=== PATIENT | female | born 1965 | race Caucasian/White ===

== ENCOUNTER 2016-03-28 17:35 | Inpatient (IN) | payer OTHER ==
[2016-03-28 18:10] VITALS: BMI 22.3
--- NOTE | 2016-03-28 18:22 | PDOC ---
History of Present Illness - General History Source: Patient, Care Provider, Parent(s), Other Exam Limitations: No Limitations, Clinical Condition - History of Present Illness Initial Comments: 03/28/16 19:09 The patient is a 51 year old female, with a significant past medical history of a MS (35 years), decubitus ulcers, and on a ventilator who presents to the emergency department complaining of sores on her legs and in her mouth for approximately 5 days. As per mother, the symptoms initially began as red blots and began to develop blisters throughout the day. After growing concerned, the patient was accompanied to her PCP Dr. Lopez 4 days ago for further evaluation. Dr. Lopez ruled out shingles, and diagnosed her with a viral skin infection, for which he prescribed famciclovir and cefuroxime. The patient is compliant with her medication and has experienced no relief. The patient reports her sores have since extended to her sides. The patient reports some of her blisters popped yesterday, with clear fluid discharge. The patient states she does not experience much pain in areas of blisters below her waist, due to diffuse dull sensation in her body secondary to MS. The patient denies any fever , chills, diaphoresis, cough, headache, or dizziness. She reports she is nauseous, but denies any vomiting, diarrhea, or constipation. Allergies: chloral hydrate, azathioprine, azathioprine sodium, adhesive tape, adhesive Past Surgical History: None reported. Social History: Non-smoker. Denies alcohol or drug use. PCP: Dr. Lopez ([phone]) 03/28/16 20:54 <Go Rogers - Last Filed: 03/28/16 20:54> <Ivette Vasquez - Last Filed: 03/28/16 21:08> - General Chief Complaint: Rash Stated Complaint: RASH Time Seen by Provider: 03/28/16 17:47 Past History <Go Rogers - Last Filed: 03/28/16 20:54> - Past Medical History Anemia: No Asthma: No Cancer: No CVA: No COPD: No CHF: No Dementia: (M.S,TRIG.NEUROLAGIA) Diabetes: No GI Disorders: Yes Disorders: Yes (baclofen implant) HTN: Yes Hypercholesterolemia: No Liver Disease: No Suicide Attempt (Hx): Yes Seizures: Yes Thyroid Disease: No - Surgical History Abdominal Surgery: No Appendectomy: No Cardiac Surgery: No Cholecystectomy: No GI Surgery: (BACLOFEN IMPLANT) Lung Surgery: Yes (TRACH) Neurologic Surgery: No Orthopedic Surgery: No - Immunization History Immunization Up to Date: Yes - Psycho/Social/Smoking Cessation Hx Anxiety: No Suicidal Ideation: No Smoking Status: No Smoking History: Never smoked Have you smoked in the past 12 months: No Number of Cigarettes Smoked Daily: 0 Cigars Per Day: 0 Hx Alcohol Use: No Drug/Substance Use Hx: No Substance Use Type: None Hx Substance Use Treatment: No <Ivette Vasquez - Last Filed: 03/28/16 21:08> - Past Medical History Allergies/Adverse Reactions: Allergies Allergy/AdvReac Type Severity Reaction Status Date / Time chloral hydrate Allergy Intermediate Rash Verified 03/28/16 18:06 [Chloral Hydrate] azathioprine [From Imuran] Allergy Rash Verified 03/28/16 18:06 azathioprine sodium Allergy Rash Verified 03/28/16 18:06 [From Imuran] adhesive tape AdvReac Severe sensitivity Verified 03/28/16 18:06 to glue adhesive AdvReac Unknown Verified 03/28/16 18:06 Home Medications: Ambulatory Orders Carbamazepine [Tegretol -] 100 mg PO TID tab.chew 08/27/14 Albuterol 0.083% Nebulizer Rocio [Ventolin 0.083% Nebulizer Soln -] 1 neb NEB Q4H PRN #0 amp 10/26/14 Clonazepam [Klonopin] 0.5 mg PO DAILY 05/08/15 Silver Sulfadiazine [Silvadene] 50 gm TP DAILY #1 cream..g. NS 11/28/15 Hydralazine HCl [Apresoline -] 25 mg PO TID tablet 12/08/15 Amlodipine Besylate [Norvasc -] 10 mg PO HS 02/06/16 Baclofen 5 mg PO DAILY 02/06/16 Mirtazapine 7.5 mg PO DAILY 02/06/16 Pantoprazole Sodium [Protonix] 40 mg PO DAILY 02/06/16 Potassium Chloride 20 meq PO DAILY 02/06/16 Sertraline HCl [Zoloft -] 25 mg PO TID 02/06/16 Levothyroxine [Synthroid -] 88 mcg PO DAILY@0700 #30 tablet 02/14/16 Cefuroxime Axetil [Ceftin -] 500 mg PO Q12H 03/28/16 Famciclovir [Famvir (Nf) -] 500 mg PO BID 03/28/16 Review of Systems - Review of Systems Able to Perform ROS?: Yes Comments:: 03/28/16 19:09 GENERAL/CONSTITUTIONAL: +General weakness. No fever or chills. HEAD, EYES, EARS, NOSE AND THROAT: +Blisters around mouth and tongue. No change in vision. No ear pain or discharge. No sore throat. CARDIOVASCULAR: No chest pain or shortness of breath. RESPIRATORY: No cough, wheezing, or hemoptysis. GASTROINTESTINAL: +Nausea. No vomiting, diarrhea or constipation. GENITOURINARY: No dysuria, frequency, or change in urination. MUSCULOSKELETAL: +Multiple sclerosis. No joint or muscle swelling or pain. No neck or back pain. SKIN: +Medial right thigh, lateral left thigh, left and right flank skin rash and bullae. +Decubitus ulcers X3 in her left upper thigh sacral region. NEUROLOGIC: No headache, vertigo, loss of consciousness, or change in strength/ sensation. ENDOCRINE: No increased thirst. No abnormal weight change. HEMATOLOGIC/LYMPHATIC: No anemia, easy bleeding, or history of blood clots. ALLERGIC/IMMUNOLOGIC: No hives or skin allergy. <Go Rogers - Last Filed: 03/28/16 20:54> *Physical Exam - Vital Signs Last Vital Signs Temp Pulse Resp BP Pulse Ox 96.6 F L 84 18 135/63 93 L 03/28/16 18:06 03/28/16 18:06 03/28/16 18:06 03/28/16 18:06 03/28/16 18:06 <Go Rogers - Last Filed: 03/28/16 20:54> - Vital Signs Last Vital Signs Temp Pulse Resp BP Pulse Ox 96.6 F L 84 18 135/63 93 L 03/28/16 18:06 03/28/16 18:06 03/28/16 18:06 03/28/16 18:06 03/28/16 18:06 - Physical Exam Comments: GENERAL: Awake, alert, and fully oriented, in no acute distress HEAD: No signs of trauma EYES: PERRLA, EOMI, sclera anicteric, conjunctiva clear ENT: Auricles normal inspection, hearing grossly normal, nares patent, oropharynx clear without exudates. Moist mucosa NECK: Normal ROM, supple, no lymphadenopathy, JVD, or masses. +Trach. LUNGS: Breath sounds equal, clear to auscultation bilaterally. No wheezes, and no crackles HEART: Regular rate and rhythm, normal S1 and S2, no murmurs, rubs or gallops ABDOMEN: Soft, nontender, normoactive bowel sounds. No guarding, no rebound. No masses EXTREMITIES: +Diffuse atrophy. No clubbing or cyanosis. No cords, erythema, or tenderness NEUROLOGICAL: +Slurred speech. Able to move extremities with assistance. Dec sensation diffusely. SKIN: Warm, Dry, normal turgor. +Scattered raised erythematous patches with multiple overlying bullous lesions, to groin, L thigh, L mid-torso and back. <Ivette Vasquez - Last Filed: 03/28/16 21:08> ED Treatment Course - LABORATORY CBC & Chemistry Diagram: 03/28/16 19:00 03/28/16 19:40 <Go Rogers - Last Filed: 03/28/16 20:54> - LABORATORY CBC & Chemistry Diagram: 03/28/16 19:00 03/28/16 19:40 <Ivette Vasquez - Last Filed: 03/28/16 21:08> Medical Decision Making - Medical Decision Making 03/28/16 20:43 First call, placed to Dr. Lopez at 20:42, awaiting call back. <Go Rogers - Last Filed: 03/28/16 20:54> - Medical Decision Making 03/28/16 21:07 Patient with rash, possible erythema multiforme, however, the mucosal involvement is concerning. Patient will require further evaluation for the rash , as well as repeat exams to make sure it is not worsening, given the mucosal involvement. As for the urine, I have not treated, as patient has chronic perera , may be colonized. UCx pending. <Ivette Vasquez - Last Filed: 03/28/16 21:08> *DC/Admit/Observation/Transfer - Attestations Scribe Attestion: 03/28/16 19:10 Documentation prepared by Go Rogers, acting as medical registrar for Ivette Vasquez MD. <Go Rogers - Last Filed: 03/28/16 20:54> - Discharge Dispostion Admit: Yes <Ivette Vasquez - Last Filed: 03/28/16 21:08> Diagnosis at time of Disposition: Rash - Discharge Dispostion Condition at time of disposition: Stable
[2016-03-28 19:14] LABS: BASOPHIL 1.3 % (0-2.0); MCH 31.6 pg (25.7-33.7); MCHC 34.1 g/dl (32.0-36.0); MEAN CELL VOLUME 92.9 fl (80-96); MEAN PLT VOLUME 9.2 fl (7.5-11.1); NEUTROPHILS 83.9 % (42.8-82.8); PLATELET COUNT 377 K/MM3 (134-434); RDW 15.5 % (11.6-15.6); WHITE BLOOD COUNT 10.6 K/mm3 (4.0-10.0)
[2016-03-28 20:28] LABS: ERYTHROCYTE SEDIMENTATION RATE 115 mm/hr (0-30)
[2016-03-28 20:29] LABS: ALBUMIN 2.5 g/dl (3.4-5.0); ANION GAP 8 (8-16); BILIRUBIN,TOTAL 0.2 mg/dL (0.2-1.0); CALCIUM 9.1 mg/dL (8.5-10.1); CO2 29 mmol/L (21-32); CREATININE 0.7 mg/dL (0.55-1.02); GLUCOSE,RANDOM 89 mg/dL (74-106); SGOT/AST 20 U/L (15-37); SGPT/ALT 30 U/L (12-78); TOT PROT 7.1 g/dl (6.4-8.2)
[2016-03-28 20:30] LABS: ALK PHOS 212 U/L (45-117)
[2016-03-28 20:35] LABS: URINE APPEARANCE CLOUDY; URINE BILIRUBIN NEGATIVE (NEGATIVE); URINE BLOOD NEGATIVE (NEGATIVE); URINE COLOR YELLOW; URINE GLUCOSE (UA) 2+ (NEGATIVE); URINE KETONE NEGATIVE (NEGATIVE); URINE NITRITE POSITIVE (NEGATIVE); URINE UROBILINOGEN NEGATIVE E.U./dl (0.2-1.0)
[2016-03-28 20:36] LABS: URINE LEUK ESTERASE 3+ (NEGATIVE); URINE PROTEIN 1+ (NEGATIVE)
[2016-03-28 20:38] LABS: URINE BACTERIA MANY /hpf (NONE SEEN); URINE HYALINE CAST 49 /lpf; URINE MUCUS MANY; URINE RBC 9 /hpf (0-3); URINE WBC 162 /hpf (3-5)
[2016-03-28] MEDS ORDERED: diphenhydrAMINE HCL 25 MG CAPSULE (FP) PO PRN (23:02)
[2016-03-28] MEDS ORDERED: clonazePAM 0.5 MG TABLET ONE (23:18)
[2016-03-28] MEDS ORDERED: BACLOFEN 10 MG TABLET (FP) ONE (23:19)
[2016-03-28] MEDS: clonazePAM 0.5 MG TABLET PO SCH (23:41)
[2016-03-28] MEDS: BACLOFEN 10 MG TABLET (FP) PO SCH (23:41)
[2016-03-29] MEDS ORDERED: hydrALAZINE HCL 25 MG TABLET (FP) ONE (05:15)
[2016-03-29] MEDS: LEVOTHYROXINE NA 88 MCG TABLET (FP) PO SCH (06:20)
[2016-03-29] MEDS: hydrALAZINE HCL 25 MG TABLET (FP) PO SCH ×3 (06:20→21:45)
[2016-03-29 06:38] LABS: MCH 31.6 pg (25.7-33.7); MCHC 33.6 g/dl (32.0-36.0); MEAN CELL VOLUME 93.8 fl (80-96); MEAN PLT VOLUME 8.2 fl (7.5-11.1); PLATELET COUNT 273 K/MM3 (134-434); WHITE BLOOD COUNT 13.3 K/mm3 (4.0-10.0)
[2016-03-29 07:12] LABS: ALBUMIN 2.4 g/dl (3.4-5.0); ANION GAP 8 (8-16); CALCIUM 8.9 mg/dL (8.5-10.1); CO2 31 mmol/L (21-32); GLUCOSE,RANDOM 92 mg/dL (74-106)
[2016-03-29 07:18] LABS: ALK PHOS 208 U/L (45-117); BILIRUBIN,TOTAL 0.2 mg/dL (0.2-1.0); CREATININE 0.7 mg/dL (0.55-1.02); SGOT/AST 21 U/L (15-37); SGPT/ALT 26 U/L (12-78); TOT PROT 6.8 g/dl (6.4-8.2)
[2016-03-29] MEDS: ALBUTEROL SO4 2.5/IPRATROPIUM 0.5 INH SOL 3 ML VIAL.NEB. NEB PRN (07:34)
--- NOTE | 2016-03-29 08:19 | PN ---
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 (short form) - Note 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: ID Presents with 6 days history of uncomfortable rash on the legs vaginal area blistering component to it. No fevers eye complaints but says her tongue is sore. no new medications She sees Dr Steven for scalp condition treated wit shampoo topically. No new meds Selected Entries 03/28/16 03/29/16 03/29/16 18:06 05:51 07:39 Temperature 96.6 F L Pulse Rate 68 Pulse Rate [ 84 Left] Respiratory 16 Rate Blood Pressure 151/71 [Right Arm] Areas or erythema with blisters vaginal area right thigh anteriorly and lat. Discreet scalp lesions but unable to see well Decubitus ulcer Tongue sores Problem List - Problems (1) Erythema multiforme Code(s): L51.9 - ERYTHEMA MULTIFORME, UNSPECIFIED (2) Disseminated herpes zoster Code(s): B02.7 - DISSEMINATED ZOSTER
[2016-03-29] MEDS ORDERED: FLUCONAZOLE 100 MG TABLET (UD) PO ONE (08:21)
[2016-03-29] MEDS ORDERED: carBAMazepine 200 MG TABLET ONE (08:30)
[2016-03-29] MEDS: carBAMazepine 100 MG TAB.CHEW PO SCH ×3 (08:31→18:34)
[2016-03-29 09:08] LABS: ERYTHROCYTE SEDIMENTATION RATE 130 mm/hr (0-30)
[2016-03-29] MEDS ORDERED: POTASSIUM CHLORIDE 10 MEQ in SODIUM CHLORIDE 1,000 ML IVPB SCH (09:45)
[2016-03-29] MEDS ORDERED: SILVER SULFADIAZINE 1% TOP CREAM 50 GM JAR TP SCH (10:00)
[2016-03-29] MEDS ORDERED: clonazePAM 0.5 MG TABLET ONE (10:16)
[2016-03-29] MEDS: methylPREDNISolone NA SUCC 40 MG/1 ML VIAL IVPB SCH ×2 (10:25→18:34)
--- NOTE | 2016-03-29 10:25 | CONS ---
DATE OF CONSULTATION: DATE OF DICTATION: March 29, 2016 INFECTIOUS DISEASE CONSULTATION HISTORY OF PRESENT ILLNESS: This is one of multiple admissions for this 51-year-old female with long-standing multiple sclerosis for 35 years, with decubitus ulcers and intermittent ventilator dependency, who comes to the emergency room complaining of an uncomfortable rash on her legs as well as her tongue for about 5 days. She is bedbound and well-cared for by her mother and an aide. For the last 5 to 6 days she noted development of what were described as blisters on her legs. She saw her primary medical doctor and was diagnosed with shingles, and apparently given famciclovir and cefuroxime. This offered little relief, and she developed sores on her tongue as well. She denied any eye involvement, joint pains or history of new medications. She has been seeing Dr. Brooke Steven for a scalp condition, which has been treated with a topical shampoo but no other medications or new diagnoses. She was recently in the hospital and seen by Dr. Carl, but no antibiotics have been given. PAST MEDICAL HISTORY: As noted above. MEDICATIONS: Current medications include Klonopin, Apresoline, Norvasc, Protonix, sertraline, levothyroxine, cefuroxime (started several days ago), Famvir (started several days ago). ALLERGIES: CHLORAL HYDRATE, AZATHIOPRINE (with rash). SOCIAL HISTORY: Never smoked. No history of substance abuse. Not . No travel. FAMILY HISTORY: Reviewed and noncontributory. REVIEW OF SYSTEMS: Respiratory: No cough, shortness of breath, chest pain. Cardiac: No palpitations, syncope or history of murmur. Gastrointestinal: No abdominal pain, vomiting, diarrhea, blood per rectum, hematemesis. Genitourinary: Incontinent of urine. PHYSICAL EXAMINATION: General: She was an alert female in no acute distress. Vital Signs: Temperature 96.6, pulse 84, blood pressure 135/63, respirations 18. HEENT: Mucosal candidiasis noted, with ulcerations of the tongue. Neck: Neck with a tracheostomy. Lungs: Bilateral rhonchi. Heart: S1, S2. Regular rhythm, without murmur. Abdomen: Soft, distended. Positive bowel sounds. No tenderness, no organomegaly. Extremities: No clubbing, cyanosis or edema. Skin: A large erythematous rash in the right anterior inner thigh with a blistering component. Several discrete similar smaller areas noted on the lateral aspect of the thigh and apparently in the vaginal area, according to her aide. DIAGNOSTIC STUDIES: White count 13.3, hemoglobin 9.9, platelets 273. ESR 115. BUN 12, creatinine 0.7, alkaline phosphatase 208 (which has previously been elevated). Urinalysis with 3+ leukocyte esterase, 9 RBCs and 162 WBCs, with many bacteria noted. Two sets of blood cultures and urine culture drawn. ASSESSMENT: A 51-year-old female with long-standing multiple sclerosis, presents with an uncomfortable "blistering rash" on her thigh and vaginal area, as well as mouth sores, all of which could be consistent with erythema multiforme. The differential diagnosis, however, would also include disseminated shingles as well as a blistering disease, such as pemphigus. She also has incidental oral candidiasis. PLAN: Dr. Brooke Steven should see her in consult from Dermatology. As a precaution, I would put her on contact isolation and treat her with IV Zovirax, with adequate hydration 700 mg q.8 hours, add steroids, Solu-Medrol 40 q.8, and oral Diflucan 100 mg daily. ANGELA LUBIN M.D. DIDI/[id number]
[2016-03-29] MEDS: amLODIPine BESYLATE 10 MG TABLET (FP) PO SCH (10:58)
[2016-03-29] MEDS: clonazePAM 0.5 MG TABLET PO SCH (10:58)
[2016-03-29] MEDS: PANTOPRAZOLE 40 MG TABLET (FP) PO SCH (10:58)
[2016-03-29] MEDS: BACLOFEN 10 MG TABLET (FP) PO SCH ×3 (10:58→21:47)
[2016-03-29] MEDS: SERTRALINE HCL 25 MG TABLET (FP) PO SCH (10:58)
[2016-03-29] MEDS: POTASSIUM CHLORIDE TABS 20 MEQ TABLET.ER (FP) PO SCH (10:58)
--- NOTE | 2016-03-29 10:58 | HP ---
Admitting History and Physical - Primary Care Physician PCP: Hilario Myers - Admission Chief Complaint: SENT IN FOR ACUTE RASH WITH BLISTERING WEEPING AREAS ON LEGS History of Present Illness: 51 Y/O FEMALE WITH MS WELL KNOWN TO OUR SERVICE PRESENTING WITH A DISSEMINATED RASH TO LOWER EXTREMITIES, WITH BLISTERING OPEN WEEPING AREAS. ORAL THRUSH, GENERALIZED WEAKNESS, +TRACHEOSTOMY ON COLLAR, FAMILY BEDSIDE. PATIENT HAS BEEN SEEING MIKE JOY FROM DERMATOLOGY FOR A SCALP RASH STARTED ON A NEW MEDICAL SHAMPOO. 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: Multiple Sclerosis (quadraplegia), Other (legally blind, trigeminal neuralgia -> baclofen pump) Cardiovascular: Yes: HTN, Hyperlipdemia Pulmonary: Yes: Pneumonia (recurrent aspiration -> last one in 05/21 (RLL)), Other (hypercapneic respiratory failure s/p trach) Gastrointestinal: Yes: Constipation (chronic) Renal/: Yes: Neurogenic Bladder ( neurogenic bladder, chronic perera catheter) ...LMP: 06/07/12 Heme/Onc: Yes: Anemia Infectious Disease: Yes: Other (pneumonia, uti treated by urologist) Musculoskeletal: Yes: Other Dermatology: Yes: Other (chronic decubitus followed by wound care) - Smoking History Smoking history: Never smoked Have you smoked in the past 12 months: No Aproximately how many cigarettes per day: 0 - Alcohol/Substance Use Hx Alcohol Use: No History of Substance Use: reports: None - Social History ADL: Support Services History of Recent Travel: No Home Medications - Allergies Allergies/Adverse Reactions: Allergies Allergy/AdvReac Type Severity Reaction Status Date / Time chloral hydrate Allergy Intermediate Rash Verified 03/28/16 18:06 [Chloral Hydrate] azathioprine [From Imuran] Allergy Rash Verified 03/28/16 18:06 azathioprine sodium Allergy Rash Verified 03/28/16 18:06 [From Imuran] adhesive tape AdvReac Severe sensitivity Verified 03/28/16 18:06 to glue adhesive AdvReac Unknown Verified 03/28/16 18:06 - Home Medications Home Medications: Ambulatory Orders Carbamazepine [Tegretol -] 100 mg PO TID tab.chew 08/27/14 Albuterol 0.083% Nebulizer Rocio [Ventolin 0.083% Nebulizer Soln -] 1 neb NEB Q4H PRN #0 amp 10/26/14 Clonazepam [Klonopin] 0.5 mg PO DAILY 05/08/15 Silver Sulfadiazine [Silvadene] 50 gm TP DAILY #1 cream..g. NS 11/28/15 Hydralazine HCl [Apresoline -] 25 mg PO TID tablet 12/08/15 Amlodipine Besylate [Norvasc -] 10 mg PO HS 02/06/16 Baclofen 5 mg PO DAILY 02/06/16 Mirtazapine 7.5 mg PO DAILY 02/06/16 Pantoprazole Sodium [Protonix] 40 mg PO DAILY 02/06/16 Potassium Chloride 20 meq PO DAILY 02/06/16 Sertraline HCl [Zoloft -] 25 mg PO TID 02/06/16 Levothyroxine [Synthroid -] 88 mcg PO DAILY@0700 #30 tablet 02/14/16 Cefuroxime Axetil [Ceftin -] 500 mg PO Q12H 03/28/16 Famciclovir [Famvir (Nf) -] 500 mg PO BID 03/28/16 Review of Systems - Review of Systems Constitutional: reports: Weakness Eyes: reports: No Symptoms HENT: reports: Throat Pain, Other (ORAL THRUSH) Neck: reports: No Symptoms Cardiovascular: reports: No Symptoms Respiratory: reports: Other Gastrointestinal: reports: No Symptoms Genitourinary: reports: Incontinence Musculoskeletal: reports: Decreased ROM, Joint Pain, Muscle Pain, Muscle Cramps , Muscle Weakness Integumentary: reports: Eczema, Erythema, Lesions, Pruritis, Rash Neurological: reports: Pre-Existing Deficit, Weakness Endocrine: reports: No Symptoms Hematology/Lymphatic: reports: No Symptoms Physical Examination Vital Signs: Vital Signs Temperature 96.6 F L 03/28/16 18:06 Pulse Rate 84 03/29/16 07:39 Respiratory Rate 16 03/29/16 07:39 Blood Pressure 151/71 03/29/16 07:39 O2 Sat by Pulse Oximetry (%) 96 03/29/16 07:39 Constitutional: Yes: Mild Distress Eyes: Yes: WNL HENT: Yes: Thrush Neck: Yes: Other (TRACH+) Cardiovascular: Yes: WNL Respiratory: Yes: Other (TRACH COLLAR+) Gastrointestinal: Yes: WNL Renal/: Yes: Incontinence Musculoskeletal: Yes: Muscle Weakness Extremities: Yes: Other Edema: Yes Edema: LLE: Trace, RLE: Trace Peripheral Pulses WNL: Yes Integumentary: Yes: Erythema, Pressure Ulcer, Rash, Skin Tear Wound/Incision: Yes: Open to air, Reddened, Excoriated Neurological: Yes: Pre-Existing Deficit, Weakness ...Motor Strength: LLE, RLE Psychiatric: Yes: Other Labs: CBC, BMP 03/29/16 05:35 03/29/16 05:35 Problem List - Problems (1) Disseminated herpes zoster Code(s): B02.7 - DISSEMINATED ZOSTER (2) Erythema multiforme Code(s): L51.9 - ERYTHEMA MULTIFORME, UNSPECIFIED (3) Rash Code(s): R21 - RASH AND OTHER NONSPECIFIC SKIN ERUPTION (4) Acute on chronic respiratory failure with hypoxia and hypercapnia Code(s): J96.21 - ACUTE AND CHRONIC RESPIRATORY FAILURE WITH HYPOXIA J96.22 - ACUTE AND CHRONIC RESPIRATORY FAILURE WITH HYPERCAPNIA (5) Multiple sclerosis Code(s): G35 - MULTIPLE SCLEROSIS (6) Muscle spasticity Code(s): M62.838 - OTHER MUSCLE SPASM (7) Neurogenic bladder Code(s): N31.9 - NEUROMUSCULAR DYSFUNCTION OF BLADDER, UNSPECIFIED (8) Oral thrush Code(s): B37.0 - CANDIDAL STOMATITIS (9) Tracheostomy dependence Code(s): Z93.0 - TRACHEOSTOMY STATUS Assessment/Plan ID CONSULT APPRECIATED ACYCLOVIR IV STARTED WITH IVF TO AVOID RENAL FAILURE DERMATOLOGY CONSULT WOUNDS OPEN TO AIR ISOLATION ORAL THRUSH TX WITH DIFLUCAN AND NYSTATIN ORAL SUSP BACLOFEN 5MG TID, (LAST ADMISSION SENT TO ICU FOR BACLOFEN OVERDOSE?)
[2016-03-29] MEDS: ACYCLOVIR INJECTION 700 MG in DEXTROSE 5%-WATER - 100 ML IVPB SCH ×2 (11:06→18:34)
--- NOTE | 2016-03-29 11:47 | PN ---
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 (short form) - Note 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: Renal Consult for Hyponatremia This is a 51 year old woman with PMhx of Progressive Multiple Sclerosis, Chronic Respiratory failure on vent presented with rash and found to have Serum na of 130, Pt has been seen several times in the past for hyponatremia from excess water intake +/- excess adh release. Pt developed this rash about 5 days ago and was initially painful. Has ulcerations in the mouth as well. She has been drinking a lot of water but not much solute intake. Mental status is at baseline. No confusion, lethargy, N/V. PMhx: as above Allergies: as listed in EMR Family Hx: NC Social Hx: NO T/A/D ROS: as per HPI Home Meds: Medication Instructions Recorded Carbamazepine [Tegretol -] 100 mg PO TID tab.chew 08/27/14 Albuterol 0.083% Nebulizer Rocio 1 neb NEB Q4H PRN #0 amp 10/26/14 [Ventolin 0.083% Nebulizer Soln -] Clonazepam [Klonopin] 0.5 mg PO DAILY 05/08/15 Silver Sulfadiazine [Silvadene] 50 gm TP DAILY #1 cream..g. NS 11/28/15 Hydralazine HCl [Apresoline -] 25 mg PO TID tablet 12/08/15 Amlodipine Besylate [Norvasc -] 10 mg PO HS 02/06/16 Baclofen 5 mg PO DAILY 02/06/16 Mirtazapine 7.5 mg PO DAILY 02/06/16 Pantoprazole Sodium [Protonix] 40 mg PO DAILY 02/06/16 Potassium Chloride 20 meq PO DAILY 02/06/16 Sertraline HCl [Zoloft -] 25 mg PO TID 02/06/16 Levothyroxine [Synthroid -] 88 mcg PO DAILY@0700 #30 tablet 02/14/16 Cefuroxime Axetil [Ceftin -] 500 mg PO Q12H 03/28/16 Famciclovir [Famvir (Nf) -] 500 mg PO BID 03/28/16 Vital Signs Temperature 96.6 F L 03/28/16 18:06 Pulse Rate 84 03/29/16 07:39 Respiratory Rate 16 03/29/16 07:39 Blood Pressure 151/71 03/29/16 07:39 O2 Sat by Pulse Oximetry (%) 96 03/29/16 07:39 Gen: NAD, awake and alert. HEENT: Trach in place. NC/AT CVS: RRR Lungs: CTA Abd: soft NT/ND ext: no edema, clubbing or cyanosis : No bladder distension Skin: Blistering lesions on legs and back CBC, BMP 03/29/16 05:35 03/29/16 05:35 Current Medications Albuterol/Ipratropium (Duoneb -) 1 amp NEB Q6H PRN PRN Reason: SHORTNESS OF BREATH Last Admin: 03/29/16 07:34 Dose: 1 amp Amlodipine Besylate (Norvasc -) 10 mg PO DAILY [facility] Last Admin: 03/29/16 10:58 Dose: 10 mg Baclofen (Lioresal -) 5 mg PO TID [facility] Carbamazepine (Tegretol -) 100 mg PO TIDCM [facility] Last Admin: 03/29/16 08:31 Dose: 100 mg Clonazepam (Klonopin -) 0.5 mg PO DAILY [facility] Last Admin: 03/29/16 10:58 Dose: 0.5 mg Diphenhydramine HCl (Benadryl -) 25 mg PO Q6H PRN PRN Reason: FOR ITCHING Fluconazole (Diflucan -) 100 mg PO DAILY [facility] Hydralazine HCl (Apresoline -) 25 mg PO TID [facility] Last Admin: 03/29/16 06:20 Dose: 25 mg Acyclovir 700 mg/ Dextrose 114 mls @ 100 mls/hr IVPB Q8H-IV [facility] Last Admin: 03/29/16 11:06 Dose: 100 mls/hr Potassium Chloride 10 meq/ (Sodium Chloride) 1,005 mls @ 75 mls/hr IVPB ASDIR [facility] Last Admin: 03/29/16 11:06 Dose: 75 mls/hr Levothyroxine Sodium (Synthroid -) 88 mcg PO DAILY@0700 [facility] Last Admin: 03/29/16 06:20 Dose: 88 mcg Methylprednisolone Sodium Succinate (Solu-Medrol -) 40 mg IVPB Q8H-IV [facility] Last Admin: 03/29/16 10:25 Dose: 40 mg Mirtazapine (Remeron -) 7.5 mg PO HS [facility] Nystatin (Nystatin Oral Suspension -) 500,000 units PO Q6HPO [facility] Pantoprazole Sodium (Protonix -) 40 mg PO DAILY [facility] Last Admin: 03/29/16 10:58 Dose: 40 mg Potassium Chloride (K-Dur -) 20 meq PO DAILY [facility] Last Admin: 03/29/16 10:58 Dose: 20 meq Sertraline HCl (Zoloft -) 25 mg PO DAILY [facility] Last Admin: 03/29/16 10:58 Dose: 25 mg Silver Sulfadiazine (Silvadene -) 1 applic TP DAILY [facility] Last Admin: 03/29/16 11:06 Dose: 1 applic A/p 51 year old woman with PMhx of Progressive Multiple Sclerosis, Chronic Respiratory failure on vent presented with rash and found to have Serum na of 130 #Hyponatremia serum na improved to 135 on isotonic saline Check Urine OSM, Serum OSM, Urine Na Continue normal saline for now Trend Na Q24hr hold hypotonic fluid infusion or excessive free water no indication for 3% saline #Rash/Shingles Continue IV Acyclovir as per ID Aggressive IVF hydration Trend renal function with IV acyclovir pain control #Multiple Sclerosis with Chronic Resp Failure supportive care Vent support Thank you Will follow Tyshawn Doe DO
[2016-03-29 13:26] LABS: OSMOLALITY,SERUM 286 mosm/kg (278-305)
[2016-03-29] MEDS: NYSTATIN 500,000 UNITS/5 ML SUSPENSION PO SCH ×2 (14:21→18:34)
[2016-03-29] MEDS ORDERED: MIRTAZAPINE 15 MG TABLET (FP) ONE (21:51)
[2016-03-29] MEDS: MIRTAZAPINE 15 MG TABLET (FP) PO SCH (22:00)
[2016-03-30] MEDS: NYSTATIN 500,000 UNITS/5 ML SUSPENSION PO SCH ×4 (00:49→18:08)
[2016-03-30] MEDS: methylPREDNISolone NA SUCC 40 MG/1 ML VIAL IVPB SCH ×3 (02:18→18:08)
[2016-03-30] MEDS: ACYCLOVIR INJECTION 700 MG in DEXTROSE 5%-WATER - 100 ML IVPB SCH ×3 (02:25→18:08)
[2016-03-30] MEDS ORDERED: methylPREDNISolone NA SUCC 40 MG/1 ML VIAL ONE ×2 (02:28→02:31)
[2016-03-30] MEDS ORDERED: POTASSIUM CHLORIDE 10 MEQ in SODIUM CHLORIDE 1,000 ML IVPB SCH (02:37)
[2016-03-30] MEDS: hydrALAZINE HCL 25 MG TABLET (FP) PO SCH ×3 (06:02→22:12)
[2016-03-30] MEDS: BACLOFEN 10 MG TABLET (FP) PO SCH ×3 (06:02→22:00)
[2016-03-30] MEDS: LEVOTHYROXINE NA 88 MCG TABLET (FP) PO SCH (07:00)
[2016-03-30 07:53] LABS: CALCIUM 9.2 mg/dL (8.5-10.1); CREATININE 0.6 mg/dL (0.55-1.02); MAGNESIUM 2.5 mg/dL (1.8-2.4); PHOSPHOROUS 3.2 mg/dL (2.5-4.9)
[2016-03-30] MEDS: carBAMazepine 100 MG TAB.CHEW PO SCH ×3 (08:30→18:08)
[2016-03-30 08:31] LABS: BASOPHIL 0.2 % (0-2.0); MCH 31.2 pg (25.7-33.7); MCHC 33.1 g/dl (32.0-36.0); MEAN CELL VOLUME 94.4 fl (80-96); MEAN PLT VOLUME 8.7 fl (7.5-11.1); NEUTROPHILS 95.1 % (42.8-82.8); PLATELET COUNT 334 K/MM3 (134-434); RDW 15.5 % (11.6-15.6); WHITE BLOOD COUNT 17.7 K/mm3 (4.0-10.0)
[2016-03-30] MEDS: FLUCONAZOLE 100 MG TABLET (UD) PO SCH (10:38)
[2016-03-30] MEDS: SERTRALINE HCL 25 MG TABLET (FP) PO SCH (10:39)
[2016-03-30] MEDS: amLODIPine BESYLATE 10 MG TABLET (FP) PO SCH (10:39)
[2016-03-30] MEDS: PANTOPRAZOLE 40 MG TABLET (FP) PO SCH (10:39)
[2016-03-30] MEDS: clonazePAM 0.5 MG TABLET PO SCH (10:39)
[2016-03-30] MEDS: POTASSIUM CHLORIDE TABS 20 MEQ TABLET.ER (FP) PO SCH (10:39)
[2016-03-30] MEDS ORDERED: ONDANSETRON 4 MG/2 ML VIAL IVPUSH PRN (12:16)
--- NOTE | 2016-03-30 12:18 | PN ---
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, Physician Chief Complaint: complaining of nausea contact isolation - Current Medication List Current Medications: Active Medications Albuterol/Ipratropium (Duoneb -) 1 amp NEB Q6H PRN PRN Reason: SHORTNESS OF BREATH Last Admin: 03/29/16 07:34 Dose: 1 amp Amlodipine Besylate (Norvasc -) 10 mg PO DAILY [facility] Last Admin: 03/30/16 10:39 Dose: 10 mg Baclofen (Lioresal -) 5 mg PO TID [facility] Last Admin: 03/30/16 06:02 Dose: 5 mg Carbamazepine (Tegretol -) 100 mg PO TIDCM [facility] Last Admin: 03/30/16 08:30 Dose: 100 mg Clonazepam (Klonopin -) 0.5 mg PO DAILY [facility] Last Admin: 03/30/16 10:39 Dose: Not Given Diphenhydramine HCl (Benadryl -) 25 mg PO Q6H PRN PRN Reason: FOR ITCHING Fluconazole (Diflucan -) 100 mg PO DAILY [facility] Last Admin: 03/30/16 10:38 Dose: 100 mg Hydralazine HCl (Apresoline -) 25 mg PO TID [facility] Last Admin: 03/30/16 06:02 Dose: 25 mg Acyclovir 700 mg/ Dextrose 114 mls @ 100 mls/hr IVPB Q8H-IV [facility] Last Admin: 03/30/16 10:39 Dose: 100 mls/hr Potassium Chloride 10 meq/ (Sodium Chloride) 1,005 mls @ 75 mls/hr IVPB Q13H [facility] Last Admin: 03/30/16 03:04 Dose: 75 mls/hr Levothyroxine Sodium (Synthroid -) 88 mcg PO DAILY@0700 [facility] Last Admin: 03/29/16 06:20 Dose: 88 mcg Methylprednisolone Sodium Succinate (Solu-Medrol -) 40 mg IVPB Q8H-IV [facility] Last Admin: 03/30/16 10:39 Dose: 40 mg Mirtazapine (Remeron -) 7.5 mg PO HS [facility] Last Admin: 03/29/16 22:00 Dose: 7.5 mg Nystatin (Nystatin Oral Suspension -) 500,000 units PO Q6HPO [facility] Last Admin: 03/30/16 06:02 Dose: 500,000 units Pantoprazole Sodium (Protonix -) 40 mg PO DAILY [facility] Last Admin: 03/30/16 10:39 Dose: 40 mg Potassium Chloride (K-Dur -) 20 meq PO DAILY [facility] Last Admin: 03/30/16 10:39 Dose: Not Given Sertraline HCl (Zoloft -) 25 mg PO DAILY [facility] Last Admin: 03/30/16 10:39 Dose: 25 mg Silver Sulfadiazine (Silvadene -) 1 applic TP DAILY [facility] Last Admin: 03/29/16 11:06 Dose: 1 applic - Objective Vital Signs: Vital Signs Temperature 96.6 F L 03/28/16 18:06 Pulse Rate 94 H 03/30/16 09:00 Respiratory Rate 14 03/30/16 09:00 Blood Pressure 150/80 03/30/16 09:00 O2 Sat by Pulse Oximetry (%) 98 03/30/16 06:04 Constitutional: Yes: Calm HENT: Yes: Other (whitish plaques on tongue) Cardiovascular: Yes: S1, S2 Respiratory: Yes: CTA Bilaterally, Other (trach collar) Gastrointestinal: Yes: Soft Edema: No Integumentary: Yes: Other (erythematous rash on left thigh,blisters ,on right thigh, labia area and back) Neurological: Yes: Alert, Oriented, Pre-Existing Deficit Labs: CBC, BMP 03/30/16 06:55 03/30/16 06:55 Problem List - Problems (1) Disseminated herpes zoster Assessment/Plan: contact isolation acyclovir ID on board Code(s): B02.7 - DISSEMINATED ZOSTER (2) Rash Assessment/Plan: derm consult iv steroids Code(s): R21 - RASH AND OTHER NONSPECIFIC SKIN ERUPTION (3) Chronic respiratory failure Assessment/Plan: vent per respiratory Code(s): J96.10 - CHRONIC RESPIRATORY FAILURE, UNSP W HYPOXIA OR HYPERCAPNIA (4) Decubital ulcer Assessment/Plan: freuqnet turn postion clintron bed Code(s): L89.90 - PRESSURE ULCER OF UNSPECIFIED SITE, UNSPECIFIED STAGE (5) Hx of multiple sclerosis Assessment/Plan: trach Code(s): Z86.69 - PERSONAL HISTORY OF DIS OF THE NERVOUS SYS AND SENSE ORGANS (6) Hyponatremia Assessment/Plan: renal on board Code(s): E87.1 - HYPO-OSMOLALITY AND HYPONATREMIA (7) Hypothyroid Assessment/Plan: check tsh synthroid Code(s): E03.9 - HYPOTHYROIDISM, UNSPECIFIED (8) Oral thrush Assessment/Plan: diflucan and nyastatin Code(s): B37.0 - CANDIDAL STOMATITIS (9) Neurogenic bladder Assessment/Plan: perera Code(s): N31.9 - NEUROMUSCULAR DYSFUNCTION OF BLADDER, UNSPECIFIED (10) HTN (hypertension) Assessment/Plan: hydralazine Code(s): I10 - ESSENTIAL (PRIMARY) HYPERTENSION
[2016-03-30] MEDS ORDERED: ONDANSETRON 4 MG/2 ML VIAL ONE (13:00)
[2016-03-30] MEDS: SODIUM CHLORIDE 1,000 ML IV SCH (13:14)
[2016-03-30] MEDS ORDERED: LIDOCAINE HCL/PF 1% SDV 5ML VIAL ONE (15:54)
--- NOTE | 2016-03-30 16:18 | CONSULT ---
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: Multiple Sclerosis (quadraplegia), Other (legally blind, trigeminal neuralgia -> baclofen pump) Cardio/Vascular: Yes: HTN, Hyperlipdemia Pulmonary: Yes: Pneumonia (recurrent aspiration -> last one in 05/21 (RLL)), Other (hypercapneic respiratory failure s/p trach) Gastrointestinal: Yes: Constipation (chronic) Renal/: Yes: Neurogenic Bladder ( neurogenic bladder, chronic perera catheter) ...LMP: 06/07/12 Infectious Disease: Yes: Other (pneumonia, uti treated by urologist) Musculoskeletal: Yes: Other Dermatology: Yes: Other (chronic decubitus followed by wound care) Additional Medical History: trigeminal neuralgia, baclofen pump. chronic decubitus followed by wound care. neurogenic bladder, chronic perera catheter - Alcohol/Substance Use Hx Alcohol Use: No History of Substance Use: reports: None - Smoking History Smoking history: Never smoked Have you smoked in the past 12 months: No Aproximately how many cigarettes per day: 0 - Social History Usual Living Arrangement: With Parent ADL: Support Services History of Recent Travel: No Home Medications - Allergies Allergies/Adverse Reactions: Allergies Allergy/AdvReac Type Severity Reaction Status Date / Time chloral hydrate Allergy Intermediate Rash Verified 03/28/16 18:06 [Chloral Hydrate] azathioprine [From Imuran] Allergy Rash Verified 03/28/16 18:06 azathioprine sodium Allergy Rash Verified 03/28/16 18:06 [From Imuran] adhesive tape AdvReac Severe sensitivity Verified 03/28/16 18:06 to glue adhesive AdvReac Unknown Verified 03/28/16 18:06 - Home Medications Home Medications: Ambulatory Orders Carbamazepine [Tegretol -] 100 mg PO TID tab.chew 08/27/14 Albuterol 0.083% Nebulizer Rocio [Ventolin 0.083% Nebulizer Soln -] 1 neb NEB Q4H PRN #0 amp 10/26/14 Clonazepam [Klonopin] 0.5 mg PO DAILY 05/08/15 Silver Sulfadiazine [Silvadene] 50 gm TP DAILY #1 cream..g. NS 11/28/15 Hydralazine HCl [Apresoline -] 25 mg PO TID tablet 12/08/15 Amlodipine Besylate [Norvasc -] 10 mg PO HS 02/06/16 Baclofen 5 mg PO DAILY 02/06/16 Mirtazapine 7.5 mg PO DAILY 02/06/16 Pantoprazole Sodium [Protonix] 40 mg PO DAILY 02/06/16 Potassium Chloride 20 meq PO DAILY 02/06/16 Sertraline HCl [Zoloft -] 25 mg PO TID 02/06/16 Levothyroxine [Synthroid -] 88 mcg PO DAILY@0700 #30 tablet 02/14/16 Cefuroxime Axetil [Ceftin -] 500 mg PO Q12H 03/28/16 Famciclovir [Famvir (Nf) -] 500 mg PO BID 03/28/16 Physical Exam Vital Signs: Vital Signs Temperature 96.6 F L 03/28/16 18:06 Pulse Rate 97 H 03/30/16 15:14 Respiratory Rate 14 03/30/16 09:00 Blood Pressure 150/80 03/30/16 09:00 O2 Sat by Pulse Oximetry (%) 94 L 03/30/16 15:14 Labs: CBC, BMP 03/30/16 06:55 03/30/16 06:55 Assessment/Plan on exam patient has erythematous macules and vesicles on right inner thigh and left lateral hip extending to the left buttock areas present on abdominal area as well. Diagnosis appears to be herpes Zoster that is desseminated . patient also has a white membranous adherant coating on her tongue consistent with oral thrush. Patient is currently being treated with Acyclovir IV and treated for oral candidiasis.I have discussed the plan to take a viral culture and superficial biopsy for confirmation of diagnosis and the patient and family agrees . will obtain consent and do biopsy in morning.
--- NOTE | 2016-03-30 16:58 | PN ---
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 (short form) - Note 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: seen in ED still with uncomfortable rash seen by derm- for possible biopsy Vital Signs Period Temp Pulse Resp BP Sys/Morillo Pulse Ox Last 24 Hr 62-97 12-18 116-150/65-86 94-98 dry oral mucosa, no thrush cor-rrr lungs clear, decreased bs at bases abd soft, nt ext no edema rash blisters on right inner thigh, rash on left outer thigh rash on back CBC, BMP 03/30/16 06:55 03/30/16 06:55 Microbiology 03/28/16 20:20 Urine - Urine Perera Urine Culture - Preliminary Non Lactose Fermenting Gnb 03/28/16 19:00 Blood - Peripheral Venous Blood Culture - Preliminary NO GROWTH OBTAINED AFTER 24 HOURS, INCUBATION TO CONTINUE FOR 4 DAYS. 03/28/16 19:00 Blood - Peripheral Venous Blood Culture - Preliminary NO GROWTH OBTAINED AFTER 24 HOURS, INCUBATION TO CONTINUE FOR 4 DAYS. a/p rash- ?zoster oral thrush suspect asymptomatic bacteriuria from perera leukocytosis due to steroids continue acyclovir.iv fluids, diflucan for thrush
[2016-03-30] MEDS ORDERED: MIRTAZAPINE 15 MG TABLET (FP) ONE (21:33)
[2016-03-30] MEDS ORDERED: clonazePAM 0.5 MG TABLET ONE (21:33)
[2016-03-30] MEDS: MIRTAZAPINE 15 MG TABLET (FP) PO SCH (22:00)
[2016-03-31] MEDS: methylPREDNISolone NA SUCC 40 MG/1 ML VIAL IVPB SCH (02:00)
[2016-03-31] MEDS: ACYCLOVIR INJECTION 700 MG in DEXTROSE 5%-WATER - 100 ML IVPB SCH ×3 (02:59→19:38)
[2016-03-31] MEDS ORDERED: methylPREDNISolone NA SUCC 40 MG/1 ML VIAL ONE (03:33)
[2016-03-31] MEDS: hydrALAZINE HCL 25 MG TABLET (FP) PO SCH ×3 (06:57→21:29)
[2016-03-31] MEDS: LEVOTHYROXINE NA 88 MCG TABLET (FP) PO SCH (06:58)
[2016-03-31] MEDS: NYSTATIN 500,000 UNITS/5 ML SUSPENSION PO SCH ×4 (06:58→18:32)
[2016-03-31] MEDS: BACLOFEN 10 MG TABLET (FP) PO SCH ×3 (06:59→21:29)
[2016-03-31 09:27] LABS: MCH 31.6 pg (25.7-33.7); MCHC 33.8 g/dl (32.0-36.0); MEAN CELL VOLUME 93.6 fl (80-96); MEAN PLT VOLUME 7.7 fl (7.5-11.1); PLATELET COUNT 334 K/MM3 (134-434); RDW 15.3 % (11.6-15.6); WHITE BLOOD COUNT 9.9 K/mm3 (4.0-10.0)
[2016-03-31] MEDS: carBAMazepine 100 MG TAB.CHEW PO SCH ×3 (09:53→18:32)
[2016-03-31 09:58] LABS: ALBUMIN 2.7 g/dl (3.4-5.0); ANION GAP 6 (8-16); BILIRUBIN,TOTAL 0.2 mg/dL (0.2-1.0); CALCIUM 8.6 mg/dL (8.5-10.1); CO2 28 mmol/L (21-32); CREATININE 0.7 mg/dL (0.55-1.02); GLUCOSE,RANDOM 135 mg/dL (74-106); SGOT/AST 19 U/L (15-37); SGPT/ALT 26 U/L (12-78); TOT PROT 7.4 g/dl (6.4-8.2)
[2016-03-31 10:06] LABS: ALK PHOS 211 U/L (45-117); THYROID STIMULATING HORMONE 1.02 uIU/ml (0.358-3.74)
--- NOTE | 2016-03-31 10:38 | PN ---
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, Physician Chief Complaint: patient is looking much better today white plaques on tongue and lip blister resolved rashes much better today less erythema - Current Medication List Current Medications: Active Medications Albuterol/Ipratropium (Duoneb -) 1 amp NEB Q6H PRN PRN Reason: SHORTNESS OF BREATH Last Admin: 03/29/16 07:34 Dose: 1 amp Amlodipine Besylate (Norvasc -) 10 mg PO DAILY [facility] Last Admin: 03/30/16 10:39 Dose: 10 mg Baclofen (Lioresal -) 5 mg PO TID [facility] Last Admin: 03/31/16 06:59 Dose: 5 mg Carbamazepine (Tegretol -) 100 mg PO TIDCM [facility] Last Admin: 03/30/16 18:08 Dose: 100 mg Clonazepam (Klonopin -) 0.5 mg PO DAILY [facility] Last Admin: 03/30/16 10:39 Dose: Not Given Diphenhydramine HCl (Benadryl -) 25 mg PO Q6H PRN PRN Reason: FOR ITCHING Fluconazole (Diflucan -) 100 mg PO DAILY [facility] Last Admin: 03/30/16 10:38 Dose: 100 mg Hydralazine HCl (Apresoline -) 25 mg PO TID [facility] Last Admin: 03/31/16 06:57 Dose: 25 mg Acyclovir 700 mg/ Dextrose 114 mls @ 100 mls/hr IVPB Q8H-IV [facility] Last Admin: 03/31/16 02:59 Dose: 100 mls/hr Sodium Chloride (Normal Saline -) 1,000 mls @ 75 mls/hr IV ASDIR [facility] Last Admin: 03/30/16 13:14 Dose: 75 mls/hr Levothyroxine Sodium (Synthroid -) 88 mcg PO DAILY@0700 [facility] Last Admin: 03/31/16 06:58 Dose: 88 mcg Mirtazapine (Remeron -) 7.5 mg PO HS [facility] Last Admin: 03/30/16 22:00 Dose: 7.5 mg Nystatin (Nystatin Oral Suspension -) 500,000 units PO Q6HPO [facility] Last Admin: 03/31/16 06:58 Dose: 500,000 units Ondansetron HCl (Zofran Injection) 4 mg IVPUSH Q6H PRN PRN Reason: NAUSEA AND/OR VOMITING Pantoprazole Sodium (Protonix -) 40 mg PO DAILY [facility] Last Admin: 03/30/16 10:39 Dose: 40 mg Sertraline HCl (Zoloft -) 25 mg PO DAILY [facility] Last Admin: 03/30/16 10:39 Dose: 25 mg - Objective Vital Signs: Vital Signs Temperature 96.3 F L 03/31/16 05:15 Pulse Rate 97 H 03/31/16 09:00 Respiratory Rate 14 03/31/16 07:00 Blood Pressure 146/77 03/31/16 05:15 O2 Sat by Pulse Oximetry (%) 98 03/31/16 09:00 Constitutional: Yes: Calm HENT: Yes: Thrush (improving) Neck: Yes: Other (trach collar) Cardiovascular: Yes: Regular Rate and Rhythm, S1, S2 Respiratory: Yes: CTA Bilaterally, Diminished Gastrointestinal: Yes: Normal Bowel Sounds, Soft Edema: No Integumentary: Yes: Rash (blistering on thigh, rash on thgh improving less erythematous) Labs: CBC, BMP 03/31/16 08:46 03/31/16 08:46 Problem List - Problems (1) Disseminated herpes zoster Assessment/Plan: contact isolation acyclovir with hydration ID on board Code(s): B02.7 - DISSEMINATED ZOSTER (2) Rash Assessment/Plan: derm consult- just got biopsy done iv steroids stopped Code(s): R21 - RASH AND OTHER NONSPECIFIC SKIN ERUPTION (3) Chronic respiratory failure Assessment/Plan: trach collar neublizer Code(s): J96.10 - CHRONIC RESPIRATORY FAILURE, UNSP W HYPOXIA OR HYPERCAPNIA (4) Decubital ulcer Assessment/Plan: freuqnet turn postion clintron bed Code(s): L89.90 - PRESSURE ULCER OF UNSPECIFIED SITE, UNSPECIFIED STAGE (5) Hx of multiple sclerosis Assessment/Plan: trach Code(s): Z86.69 - PERSONAL HISTORY OF DIS OF THE NERVOUS SYS AND SENSE ORGANS (6) Hyponatremia Assessment/Plan: renal on board Code(s): E87.1 - HYPO-OSMOLALITY AND HYPONATREMIA (7) Hypothyroid Assessment/Plan: tsh is ok synthroid Code(s): E03.9 - HYPOTHYROIDISM, UNSPECIFIED (8) Oral thrush Assessment/Plan: improved diflucan and nyastatin Code(s): B37.0 - CANDIDAL STOMATITIS (9) Neurogenic bladder Assessment/Plan: perera Code(s): N31.9 - NEUROMUSCULAR DYSFUNCTION OF BLADDER, UNSPECIFIED (10) HTN (hypertension) Assessment/Plan: hydralazine Code(s): I10 - ESSENTIAL (PRIMARY) HYPERTENSION
[2016-03-31] MEDS: clonazePAM 0.5 MG TABLET PO SCH (10:53)
[2016-03-31] MEDS: FLUCONAZOLE 100 MG TABLET (UD) PO SCH (10:53)
[2016-03-31] MEDS: amLODIPine BESYLATE 10 MG TABLET (FP) PO SCH (10:53)
[2016-03-31] MEDS: PANTOPRAZOLE 40 MG TABLET (FP) PO SCH (10:54)
[2016-03-31] MEDS: SERTRALINE HCL 25 MG TABLET (FP) PO SCH (10:54)
--- NOTE | 2016-03-31 11:26 | PN ---
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 (short form) - Note 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: NAD no urinary symptoms Vital Signs Period Temp Pulse Resp BP Sys/Morillo Pulse Ox Last 24 Hr 96.3 F 51-100 14-17 138-148/70-83 94-100 trach to vent alert mouth improved cor rrr lungs decreased bs at bases abd soft,nt ext trace edema rash on thigh drying rash on back resolving- minimal and improved per aide at bedside CBC, BMP 03/31/16 08:46 03/31/16 08:46 Microbiology 03/28/16 20:20 Urine - Urine Raza Urine Culture - Final Enterobacter Cloacae 03/28/16 19:00 Blood - Peripheral Venous Blood Culture - Preliminary NO GROWTH OBTAINED AFTER 48 HOURS, INCUBATION TO CONTINUE FOR 3 DAYS. 03/28/16 19:00 Blood - Peripheral Venous Blood Culture - Preliminary NO GROWTH OBTAINED AFTER 48 HOURS, INCUBATION TO CONTINUE FOR 3 DAYS. a/p d/w Dr Salas (derm)- most likely disseminated zoster, steroids d/asif, continue acyclovir/ivf thrush resolved asymptomatic bacteriuria- no need to treat at this time for biopsy today
[2016-03-31] MEDS ORDERED: PANTOPRAZOLE 40 MG TABLET (FP) ONE (11:32)
[2016-03-31] MEDS ORDERED: SERTRALINE HCL 50 MG TABLET (FP) ONE (11:32)
[2016-03-31] MEDS ORDERED: clonazePAM 0.5 MG TABLET ONE (11:32)
[2016-03-31] MEDS ORDERED: amLODIPine BESYLATE 5 MG TABLET (FP) ONE (11:32)
--- NOTE | 2016-03-31 13:24 | PN ---
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, Physician Chief Complaint: Patient is a 51 y/o female, quadruplegic, MS, On Vent support H.zoster in the inner thigh Had Biopsy this morning serum sodium improving IV fluids well tolerated Pain much better - Current Medication List Current Medications: Active Medications Albuterol/Ipratropium (Duoneb -) 1 amp NEB Q6H PRN PRN Reason: SHORTNESS OF BREATH Last Admin: 03/29/16 07:34 Dose: 1 amp Amlodipine Besylate (Norvasc -) 10 mg PO DAILY [facility] Last Admin: 03/31/16 10:53 Dose: 10 mg Baclofen (Lioresal -) 5 mg PO TID [facility] Last Admin: 03/31/16 06:59 Dose: 5 mg Carbamazepine (Tegretol -) 100 mg PO TIDCM [facility] Last Admin: 03/31/16 09:53 Dose: 100 mg Clonazepam (Klonopin -) 0.5 mg PO DAILY [facility] Last Admin: 03/31/16 10:53 Dose: 0.5 mg Diphenhydramine HCl (Benadryl -) 25 mg PO Q6H PRN PRN Reason: FOR ITCHING Fluconazole (Diflucan -) 100 mg PO DAILY [facility] Last Admin: 03/31/16 10:53 Dose: 100 mg Hydralazine HCl (Apresoline -) 25 mg PO TID [facility] Last Admin: 03/31/16 06:57 Dose: 25 mg Acyclovir 700 mg/ Dextrose 114 mls @ 100 mls/hr IVPB Q8H-IV [facility] Last Admin: 03/31/16 02:59 Dose: 100 mls/hr Sodium Chloride (Normal Saline -) 1,000 mls @ 75 mls/hr IV ASDIR [facility] Last Admin: 03/30/16 13:14 Dose: 75 mls/hr Levothyroxine Sodium (Synthroid -) 88 mcg PO DAILY@0700 [facility] Last Admin: 03/31/16 06:58 Dose: 88 mcg Mirtazapine (Remeron -) 7.5 mg PO HS [facility] Last Admin: 03/30/16 22:00 Dose: 7.5 mg Nystatin (Nystatin Oral Suspension -) 500,000 units PO Q6HPO [facility] Last Admin: 03/31/16 06:58 Dose: 500,000 units Ondansetron HCl (Zofran Injection) 4 mg IVPUSH Q6H PRN PRN Reason: NAUSEA AND/OR VOMITING Pantoprazole Sodium (Protonix -) 40 mg PO DAILY [facility] Last Admin: 03/31/16 10:54 Dose: 40 mg Sertraline HCl (Zoloft -) 25 mg PO DAILY [facility] Last Admin: 03/31/16 10:54 Dose: 25 mg - Objective Vital Signs: Vital Signs Temperature 96.3 F L 03/31/16 05:15 Pulse Rate 97 H 03/31/16 09:00 Respiratory Rate 14 03/31/16 07:00 Blood Pressure 146/77 03/31/16 05:15 O2 Sat by Pulse Oximetry (%) 98 03/31/16 09:00 Constitutional: Yes: Calm, Anxious, Mild Distress Eyes: Yes: Conjunctiva Clear Neck: Yes: Other (Tracheostomy with vent support) Cardiovascular: Yes: Regular Rate and Rhythm, S1, S2 Respiratory: Yes: CTA Bilaterally Gastrointestinal: Yes: Normal Bowel Sounds, Soft Genitourinary: Yes: WNL Extremities: Yes: Erythema (in the groin with the rash) Edema: Yes Edema: LUE: 1+, RUE: 1+, LLE: 1+, RLE: 1+ Neurological: Yes: Alert, Oriented Psychiatric: Yes: Alert, Oriented Labs: CBC, BMP 03/31/16 08:46 03/31/16 08:46 Problem List - Problems (1) Disseminated herpes zoster Code(s): B02.7 - DISSEMINATED ZOSTER (2) Rash Code(s): R21 - RASH AND OTHER NONSPECIFIC SKIN ERUPTION (3) Acute on chronic respiratory failure with hypoxia and hypercapnia Code(s): J96.21 - ACUTE AND CHRONIC RESPIRATORY FAILURE WITH HYPOXIA J96.22 - ACUTE AND CHRONIC RESPIRATORY FAILURE WITH HYPERCAPNIA (4) CHF (congestive heart failure) Code(s): I50.9 - HEART FAILURE, UNSPECIFIED (5) Chronic respiratory failure Code(s): J96.10 - CHRONIC RESPIRATORY FAILURE, UNSP W HYPOXIA OR HYPERCAPNIA (6) Edema Code(s): R60.9 - EDEMA, UNSPECIFIED (7) HTN (hypertension) Code(s): I10 - ESSENTIAL (PRIMARY) HYPERTENSION (8) Hyponatremia Code(s): E87.1 - HYPO-OSMOLALITY AND HYPONATREMIA (9) Hypothyroid Code(s): E03.9 - HYPOTHYROIDISM, UNSPECIFIED (10) Primary adrenal deficiency Code(s): E27.1 - PRIMARY ADRENOCORTICAL INSUFFICIENCY Assessment/Plan 51 y/o female with MS, quadruplegia, Chr. Resp failure, Vent support, Admitted with H. zoster Hyponatremia Patient's clinical status improving The edema is still persistent. Patient came recently off a steroid course. BP and the rest of the vital signs are within acceptable range Will continue the current regimen The renal functions at her baseline Zuleika Pereyra MD
[2016-03-31 13:28] LABS: METAMYELOCYTE 1 % (0-2); PLATELET ESTIMATE ADEQUATE (NORMAL)
[2016-03-31] MEDS: SODIUM CHLORIDE 1,000 ML IV SCH (14:07)
[2016-03-31] MEDS ORDERED: PT OWN MED DRAWER 7, Y5N ONE (18:21)
[2016-03-31] MEDS: MIRTAZAPINE 15 MG TABLET (FP) PO SCH (21:29)
[2016-04-01] MEDS: NYSTATIN 500,000 UNITS/5 ML SUSPENSION PO SCH ×5 (00:23→23:08)
[2016-04-01] MEDS ORDERED: PT OWN MED DRAWER 7, Y5N ONE ×5 (00:30→16:37)
[2016-04-01] MEDS: ACYCLOVIR INJECTION 700 MG in DEXTROSE 5%-WATER - 100 ML IVPB SCH ×3 (02:29→18:07)
[2016-04-01] MEDS: SODIUM CHLORIDE 1,000 ML IV SCH ×3 (06:21→22:42)
[2016-04-01] MEDS: hydrALAZINE HCL 25 MG TABLET (FP) PO SCH ×3 (06:21→21:41)
[2016-04-01] MEDS: BACLOFEN 10 MG TABLET (FP) PO SCH ×3 (06:22→21:41)
[2016-04-01] MEDS: LEVOTHYROXINE NA 88 MCG TABLET (FP) PO SCH (06:22)
[2016-04-01 08:54] LABS: ALBUMIN 2.4 g/dl (3.4-5.0); ALK PHOS 184 U/L (45-117); ANION GAP 9 (8-16); BILIRUBIN,TOTAL 0.2 mg/dL (0.2-1.0); CALCIUM 8.6 mg/dL (8.5-10.1); CO2 26 mmol/L (21-32); CREATININE 0.7 mg/dL (0.55-1.02); GLUCOSE,RANDOM 74 mg/dL (74-106); SGOT/AST 21 U/L (15-37); SGPT/ALT 22 U/L (12-78); TOT PROT 6.4 g/dl (6.4-8.2)
--- NOTE | 2016-04-01 09:40 | PN ---
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, Physician History of Present Illness: feels better - Current Medication List Current Medications: Active Medications Albuterol/Ipratropium (Duoneb -) 1 amp NEB Q6H PRN PRN Reason: SHORTNESS OF BREATH Last Admin: 03/29/16 07:34 Dose: 1 amp Amlodipine Besylate (Norvasc -) 10 mg PO DAILY [facility] Last Admin: 03/31/16 10:53 Dose: 10 mg Baclofen (Lioresal -) 5 mg PO TID [facility] Last Admin: 04/01/16 06:22 Dose: 5 mg Carbamazepine (Tegretol -) 100 mg PO TIDCM [facility] Last Admin: 03/31/16 18:32 Dose: 100 mg Clonazepam (Klonopin -) 0.5 mg PO DAILY [facility] Last Admin: 03/31/16 10:53 Dose: 0.5 mg Diphenhydramine HCl (Benadryl -) 25 mg PO Q6H PRN PRN Reason: FOR ITCHING Fluconazole (Diflucan -) 100 mg PO DAILY [facility] Last Admin: 03/31/16 10:53 Dose: 100 mg Hydralazine HCl (Apresoline -) 25 mg PO TID [facility] Last Admin: 04/01/16 06:21 Dose: 25 mg Acyclovir 700 mg/ Dextrose 114 mls @ 100 mls/hr IVPB Q8H-IV [facility] Last Admin: 04/01/16 02:29 Dose: 100 mls/hr Sodium Chloride (Normal Saline -) 1,000 mls @ 75 mls/hr IV ASDIR [facility] Last Admin: 04/01/16 06:21 Dose: 75 mls/hr Levothyroxine Sodium (Synthroid -) 88 mcg PO DAILY@0700 [facility] Last Admin: 04/01/16 06:22 Dose: 88 mcg Mirtazapine (Remeron -) 7.5 mg PO HS [facility] Last Admin: 03/31/16 21:29 Dose: 7.5 mg Nystatin (Nystatin Oral Suspension -) 500,000 units PO Q6HPO [facility] Last Admin: 04/01/16 06:22 Dose: 500,000 units Ondansetron HCl (Zofran Injection) 4 mg IVPUSH Q6H PRN PRN Reason: NAUSEA AND/OR VOMITING Pantoprazole Sodium (Protonix -) 40 mg PO DAILY [facility] Last Admin: 03/31/16 10:54 Dose: 40 mg Sertraline HCl (Zoloft -) 25 mg PO DAILY [facility] Last Admin: 03/31/16 10:54 Dose: 25 mg - Objective Vital Signs: Vital Signs Temperature 97.4 F L 04/01/16 06:00 Pulse Rate 64 04/01/16 06:00 Respiratory Rate 14 04/01/16 06:05 Blood Pressure 109/67 04/01/16 06:00 O2 Sat by Pulse Oximetry (%) 96 03/31/16 14:05 Cardiovascular: Yes: Regular Rate and Rhythm Respiratory: Yes: Regular, CTA Bilaterally Gastrointestinal: Yes: Normal Bowel Sounds, Soft Integumentary: Yes: Rash (rt thigh--blister) Labs: CBC, BMP 04/01/16 07:00 Assessment/Plan - Problems (1) Disseminated herpes zoster Assessment/Plan: contact isolation acyclovir with hydration ID on board Code(s): B02.7 - DISSEMINATED ZOSTER (2) Rash Assessment/Plan: derm consult- just got biopsy done iv steroids stopped Code(s): R21 - RASH AND OTHER NONSPECIFIC SKIN ERUPTION (3) Chronic respiratory failure Assessment/Plan: trach collar neublizer Code(s): J96.10 - CHRONIC RESPIRATORY FAILURE, UNSP W HYPOXIA OR HYPERCAPNIA (4) Decubital ulcer Assessment/Plan: frequent turn position clintron bed Code(s): L89.90 - PRESSURE ULCER OF UNSPECIFIED SITE, UNSPECIFIED STAGE (5) Hx of multiple sclerosis Assessment/Plan: trach Code(s): Z86.69 - PERSONAL HISTORY OF DIS OF THE NERVOUS SYS AND SENSE ORGANS (6) Hyponatremia Assessment/Plan: renal on board Code(s): E87.1 - HYPO-OSMOLALITY AND HYPONATREMIA (7) Hypothyroid Assessment/Plan: tsh is ok synthroid Code(s): E03.9 - HYPOTHYROIDISM, UNSPECIFIED (8) Oral thrush Assessment/Plan: improved diflucan and nyastatin Code(s): B37.0 - CANDIDAL STOMATITIS (9) Neurogenic bladder Assessment/Plan: perera Code(s): N31.9 - NEUROMUSCULAR DYSFUNCTION OF BLADDER, UNSPECIFIED (10) HTN (hypertension) Assessment/Plan: hydralazine Code(s): I10 - ESSENTIAL (PRIMARY) HYPERTENSION
[2016-04-01 09:46] LABS: BASOPHIL 0.7 % (0-2.0); EOSINOPHIL 2.4 % (0-4.5); MCHC 32.8 g/dl (32.0-36.0); MEAN CELL VOLUME 94.5 fl (80-96); MEAN PLT VOLUME 8.6 fl (7.5-11.1); NEUTROPHILS 68.7 % (42.8-82.8); RDW 15.5 % (11.6-15.6); WHITE BLOOD COUNT 13.3 K/mm3 (4.0-10.0)
[2016-04-01] MEDS: ALBUTEROL SO4 2.5/IPRATROPIUM 0.5 INH SOL 3 ML VIAL.NEB. NEB PRN (09:46)
[2016-04-01] MEDS: clonazePAM 0.5 MG TABLET PO SCH (09:49)
[2016-04-01] MEDS: amLODIPine BESYLATE 10 MG TABLET (FP) PO SCH (09:49)
[2016-04-01] MEDS: SERTRALINE HCL 25 MG TABLET (FP) PO SCH (09:49)
[2016-04-01] MEDS: FLUCONAZOLE 100 MG TABLET (UD) PO SCH (09:49)
[2016-04-01] MEDS: PANTOPRAZOLE 40 MG TABLET (FP) PO SCH (09:49)
[2016-04-01] MEDS: carBAMazepine 100 MG TAB.CHEW PO SCH ×3 (09:50→18:07)
[2016-04-01 10:30] LABS: PLATELET COUNT 311 K/MM3 (134-434); PLATELET ESTIMATE ADEQUATE (NORMAL)
--- NOTE | 2016-04-01 11:32 | PROC ---
Procedure Note Procedure: Called by pt's RN as they are having a difficult time placing a peripheral iv secondary to UE edema. Placed 24ga angiocath to volar aspect of her right wrist. Cath aspirates/fluches easily. Secured with tegaderm. Ok to use iv line.
--- NOTE | 2016-04-01 12:25 | PN ---
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 (short form) - Note 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: Renal Follow up for Hyponatremia Pt seen and examined at the bedside awake and alert on vent eating no acute complaints Vital Signs Temperature 98.9 F 04/01/16 10:00 Pulse Rate 81 04/01/16 10:00 Respiratory Rate 22 04/01/16 10:00 Blood Pressure 140/58 04/01/16 10:00 O2 Sat by Pulse Oximetry (%) 99 04/01/16 09:45 Intake & Output 03/29/16 03/30/16 03/31/16 04/01/16 23:59 23:59 23:59 23:59 Intake Total 6092 194 4411 Output Total 2200 4000 2500 600 Balance -2200 -2950 -1650 400 Weight 160 lb 0.008 oz Gen: NAD, awake and alert. CVS: RRR Lungs: CTA Abd: soft NT/ND ext: no edema, clubbing or cyanosis : No bladder distension CBC, BMP 04/01/16 06:00 04/01/16 07:00 Current Medications Albuterol/Ipratropium (Duoneb -) 1 amp NEB Q6H PRN PRN Reason: SHORTNESS OF BREATH Last Admin: 04/01/16 09:46 Dose: 1 amp Amlodipine Besylate (Norvasc -) 10 mg PO DAILY [facility] Last Admin: 04/01/16 09:49 Dose: 10 mg Baclofen (Lioresal -) 5 mg PO TID [facility] Last Admin: 04/01/16 06:22 Dose: 5 mg Carbamazepine (Tegretol -) 100 mg PO TIDCM [facility] Last Admin: 04/01/16 09:50 Dose: 100 mg Clonazepam (Klonopin -) 0.5 mg PO DAILY [facility] Last Admin: 04/01/16 09:49 Dose: 0.5 mg Diphenhydramine HCl (Benadryl -) 25 mg PO Q6H PRN PRN Reason: FOR ITCHING Fluconazole (Diflucan -) 100 mg PO DAILY [facility] Last Admin: 04/01/16 09:49 Dose: 100 mg Hydralazine HCl (Apresoline -) 25 mg PO TID [facility] Last Admin: 04/01/16 06:21 Dose: 25 mg Acyclovir 700 mg/ Dextrose 114 mls @ 100 mls/hr IVPB Q8H-IV [facility] Last Admin: 04/01/16 10:38 Dose: 100 mls/hr Sodium Chloride (Normal Saline -) 1,000 mls @ 75 mls/hr IV ASDIR [facility] Last Admin: 04/01/16 06:21 Dose: 75 mls/hr Levothyroxine Sodium (Synthroid -) 88 mcg PO DAILY@0700 [facility] Last Admin: 04/01/16 06:22 Dose: 88 mcg Mirtazapine (Remeron -) 7.5 mg PO HS [facility] Last Admin: 03/31/16 21:29 Dose: 7.5 mg Nystatin (Nystatin Oral Suspension -) 500,000 units PO Q6HPO [facility] Last Admin: 04/01/16 06:22 Dose: 500,000 units Ondansetron HCl (Zofran Injection) 4 mg IVPUSH Q6H PRN PRN Reason: NAUSEA AND/OR VOMITING Pantoprazole Sodium (Protonix -) 40 mg PO DAILY [facility] Last Admin: 04/01/16 09:49 Dose: 40 mg Sertraline HCl (Zoloft -) 25 mg PO DAILY [facility] Last Admin: 04/01/16 09:49 Dose: 25 mg A/p 51 year old woman with PMhx of Progressive Multiple Sclerosis, Chronic Respiratory failure on vent presented with rash and found to have Serum na of 130 #Hyponatremia serum Na now improved to normal limits tolerating diet well continue isotonic saline for now #Rash/Shingles Continue IV Acyclovir as per ID continue IVF as long as pt is on IV acyclovir #Multiple Sclerosis with Chronic Resp Failure supportive care Vent support Tyshawn Doe DO
--- NOTE | 2016-04-01 14:05 | PN ---
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 (short form) - Note 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: rash unchanged on her thighs s/p biopsy Vital Signs Period Temp Pulse Resp BP Sys/Morillo Pulse Ox Last 24 Hr 97.0 F-98.9 F 64-103 14-22 109-157/57-85 96-99 cor-rrr lungs clear abd soft,nt ext no edema CBC, BMP 04/01/16 06:00 04/01/16 07:00 a/p rash- ?zoster continue iv acyclovir thrush continue diflucan f/u biopsy
[2016-04-01] MEDS: MIRTAZAPINE 15 MG TABLET (FP) PO SCH (21:41)
[2016-04-02] MEDS: ACYCLOVIR INJECTION 700 MG in DEXTROSE 5%-WATER - 100 ML IVPB SCH ×2 (02:28→10:55)
[2016-04-02] MEDS: BACLOFEN 10 MG TABLET (FP) PO SCH ×3 (06:16→23:08)
[2016-04-02] MEDS: LEVOTHYROXINE NA 88 MCG TABLET (FP) PO SCH (06:16)
[2016-04-02] MEDS: NYSTATIN 500,000 UNITS/5 ML SUSPENSION PO SCH ×2 (06:16→12:51)
[2016-04-02] MEDS: hydrALAZINE HCL 25 MG TABLET (FP) PO SCH ×3 (06:16→23:08)
[2016-04-02 09:38] LABS: CALCIUM 8.8 mg/dL (8.5-10.1); CREATININE 0.6 mg/dL (0.55-1.02)
[2016-04-02] MEDS ORDERED: PT OWN MED DRAWER 7, Y5N ONE ×3 (09:49→23:02)
[2016-04-02] MEDS: SERTRALINE HCL 25 MG TABLET (FP) PO SCH (09:55)
[2016-04-02] MEDS: FLUCONAZOLE 100 MG TABLET (UD) PO SCH (09:56)
[2016-04-02] MEDS: amLODIPine BESYLATE 10 MG TABLET (FP) PO SCH (09:56)
[2016-04-02] MEDS: clonazePAM 0.5 MG TABLET PO SCH (09:56)
[2016-04-02] MEDS: carBAMazepine 100 MG TAB.CHEW PO SCH ×3 (09:56→17:55)
[2016-04-02] MEDS: PANTOPRAZOLE 40 MG TABLET (FP) PO SCH (09:57)
--- NOTE | 2016-04-02 10:35 | PN ---
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, Physician Chief Complaint: oral thrush is better awaitnig biopsy report - Current Medication List Current Medications: Active Medications Albuterol/Ipratropium (Duoneb -) 1 amp NEB Q6H PRN PRN Reason: SHORTNESS OF BREATH Last Admin: 04/01/16 09:46 Dose: 1 amp Amlodipine Besylate (Norvasc -) 10 mg PO DAILY [facility] Last Admin: 04/02/16 09:56 Dose: 10 mg Baclofen (Lioresal -) 5 mg PO TID [facility] Last Admin: 04/02/16 06:16 Dose: 5 mg Carbamazepine (Tegretol -) 100 mg PO TIDCM [facility] Last Admin: 04/02/16 09:56 Dose: 100 mg Clonazepam (Klonopin -) 0.5 mg PO DAILY [facility] Diphenhydramine HCl (Benadryl -) 25 mg PO Q6H PRN PRN Reason: FOR ITCHING Fluconazole (Diflucan -) 100 mg PO DAILY [facility] Last Admin: 04/02/16 09:56 Dose: 100 mg Hydralazine HCl (Apresoline -) 25 mg PO TID [facility] Last Admin: 04/02/16 06:16 Dose: 25 mg Acyclovir 700 mg/ Dextrose 114 mls @ 100 mls/hr IVPB Q8H-IV [facility] Last Admin: 04/02/16 02:28 Dose: 100 mls/hr Sodium Chloride (Normal Saline -) 1,000 mls @ 75 mls/hr IV ASDIR [facility] Last Admin: 04/01/16 22:42 Dose: 75 mls/hr Levothyroxine Sodium (Synthroid -) 88 mcg PO DAILY@0700 [facility] Last Admin: 04/02/16 06:16 Dose: 88 mcg Mirtazapine (Remeron -) 7.5 mg PO HS [facility] Last Admin: 04/01/16 21:41 Dose: 7.5 mg Nystatin (Nystatin Oral Suspension -) 500,000 units PO Q6HPO [facility] Last Admin: 04/02/16 06:16 Dose: 500,000 units Ondansetron HCl (Zofran Injection) 4 mg IVPUSH Q6H PRN PRN Reason: NAUSEA AND/OR VOMITING Pantoprazole Sodium (Protonix -) 40 mg PO DAILY [facility] Last Admin: 04/02/16 09:57 Dose: 40 mg Sertraline HCl (Zoloft -) 25 mg PO DAILY [facility] Last Admin: 04/02/16 09:55 Dose: 25 mg - Objective Vital Signs: Vital Signs Temperature 97.4 F L 04/02/16 09:53 Pulse Rate 88 04/02/16 09:53 Respiratory Rate 18 04/02/16 09:53 Blood Pressure 164/84 04/02/16 09:53 O2 Sat by Pulse Oximetry (%) 96 04/02/16 09:38 Constitutional: Yes: Calm Neck: Yes: Trachea Midline, Other (trach) Cardiovascular: Yes: Regular Rate and Rhythm, S1, S2 Respiratory: Yes: Diminished Gastrointestinal: Yes: Normal Bowel Sounds, Soft Genitourinary: Yes: Perera Present Edema: No Integumentary: Yes: Erythema, Other (blisters poped erythematous rash on thigh and back) Labs: CBC, BMP 04/01/16 06:00 04/02/16 08:35 Problem List - Problems (1) Disseminated herpes zoster Assessment/Plan: awaiting biopsy report contact isolation acyclovir with hydration ID on board Code(s): B02.7 - DISSEMINATED ZOSTER (2) Rash Assessment/Plan: awaiting biopsy Code(s): R21 - RASH AND OTHER NONSPECIFIC SKIN ERUPTION (3) Chronic respiratory failure Assessment/Plan: trach collar neublizer Code(s): J96.10 - CHRONIC RESPIRATORY FAILURE, UNSP W HYPOXIA OR HYPERCAPNIA (4) Decubital ulcer Assessment/Plan: freuqnet turn postion clintron bed Code(s): L89.90 - PRESSURE ULCER OF UNSPECIFIED SITE, UNSPECIFIED STAGE (5) Hx of multiple sclerosis Assessment/Plan: trach Code(s): Z86.69 - PERSONAL HISTORY OF DIS OF THE NERVOUS SYS AND SENSE ORGANS (6) Hyponatremia Assessment/Plan: improved Code(s): E87.1 - HYPO-OSMOLALITY AND HYPONATREMIA (7) Hypothyroid Assessment/Plan: tsh is ok synthroid Code(s): E03.9 - HYPOTHYROIDISM, UNSPECIFIED (8) Oral thrush Assessment/Plan: improved diflucan and nyastatin Code(s): B37.0 - CANDIDAL STOMATITIS (9) Neurogenic bladder Assessment/Plan: perera Code(s): N31.9 - NEUROMUSCULAR DYSFUNCTION OF BLADDER, UNSPECIFIED (10) HTN (hypertension) Assessment/Plan: hydralazine Code(s): I10 - ESSENTIAL (PRIMARY) HYPERTENSION
[2016-04-02] MEDS: SODIUM CHLORIDE 1,000 ML IV SCH (12:56)
--- NOTE | 2016-04-02 13:31 | PN ---
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 (short form) - Note 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: ID follow up IV zovirax Doing well Selected Entries 04/02/16 13:01 Temperature 97.9 F Pulse Rate 83 Respiratory 20 Rate Blood Pressure 127/69 Dermatomal rash drying up inner thigh Microbiology 03/31/16 10:30 Wound Herpes Simplex Virus Rapid Culture - Preliminary 03/28/16 19:00 Blood - Peripheral Venous Blood Culture - Preliminary NO GROWTH OBTAINED AFTER 96 HOURS, INCUBATION TO CONTINUE FOR 1 DAYS. 03/28/16 19:00 Blood - Peripheral Venous Blood Culture - Preliminary NO GROWTH OBTAINED AFTER 96 HOURS, INCUBATION TO CONTINUE FOR 1 DAYS. Laboratory Tests 04/01/16 04/02/16 06:00 08:35 WBC 13.3 H D Hgb 9.3 L Plt Count 311 BUN 8 Creatinine 0.6 Assessment Suspect Hepez Zoster NOt going to treat urine organisms Valtrex 1 gr tid 5 days Anam PATIÑO Problem List - Problems (1) Erythema multiforme Code(s): L51.9 - ERYTHEMA MULTIFORME, UNSPECIFIED (2) Disseminated herpes zoster Code(s): B02.7 - DISSEMINATED ZOSTER
[2016-04-02] MEDS ORDERED: valACYclovir HCL 1000 MG TABLET PO SCH (14:00)
--- NOTE | 2016-04-02 14:39 | PN ---
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 (short form) - Note 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: Renal Follow up for Hyponatremia Pt seen and examined at the bedside no complaints rash is improved tolerating oral diet Vital Signs Temperature 97.9 F 04/02/16 13:01 Pulse Rate 83 04/02/16 13:01 Respiratory Rate 20 04/02/16 13:01 Blood Pressure 127/69 04/02/16 13:01 O2 Sat by Pulse Oximetry (%) 96 04/02/16 09:38 Intake & Output 03/30/16 03/31/16 04/01/16 04/02/16 23:59 23:59 23:59 23:59 Intake Total 2005 941 8669 1000 Output Total 4000 2500 3000 900 Balance -2950 -1650 -1130 100 Gen: NAD, awake and alert. CVS: RRR Lungs: CTA Abd: soft NT/ND ext: no edema, clubbing or cyanosis : No bladder distension CBC, BMP 04/01/16 06:00 04/02/16 08:35 Current Medications Albuterol/Ipratropium (Duoneb -) 1 amp NEB Q6H PRN PRN Reason: SHORTNESS OF BREATH Last Admin: 04/01/16 09:46 Dose: 1 amp Amlodipine Besylate (Norvasc -) 10 mg PO DAILY [facility] Last Admin: 04/02/16 09:56 Dose: 10 mg Baclofen (Lioresal -) 5 mg PO TID [facility] Last Admin: 04/02/16 13:01 Dose: 5 mg Carbamazepine (Tegretol -) 100 mg PO TIDCM [facility] Last Admin: 04/02/16 12:55 Dose: 100 mg Clonazepam (Klonopin -) 0.5 mg PO DAILY@2000 [facility] Diphenhydramine HCl (Benadryl -) 25 mg PO Q6H PRN PRN Reason: FOR ITCHING Hydralazine HCl (Apresoline -) 25 mg PO TID [facility] Last Admin: 04/02/16 13:01 Dose: 25 mg Sodium Chloride (Normal Saline -) 1,000 mls @ 75 mls/hr IV ASDIR [facility] Last Admin: 04/02/16 12:56 Dose: Not Given Levothyroxine Sodium (Synthroid -) 88 mcg PO DAILY@0700 [facility] Last Admin: 04/02/16 06:16 Dose: 88 mcg Mirtazapine (Remeron -) 7.5 mg PO HS [facility] Last Admin: 04/01/16 21:41 Dose: 7.5 mg Ondansetron HCl (Zofran Injection) 4 mg IVPUSH Q6H PRN PRN Reason: NAUSEA AND/OR VOMITING Pantoprazole Sodium (Protonix -) 40 mg PO DAILY [facility] Last Admin: 04/02/16 09:57 Dose: 40 mg Sertraline HCl (Zoloft -) 25 mg PO DAILY [facility] Last Admin: 04/02/16 09:55 Dose: 25 mg Valacyclovir HCl (Valtrex -) 1,000 mg PO TID [facility] A/p 51 year old woman with PMhx of Progressive Multiple Sclerosis, Chronic Respiratory failure on vent presented with rash and found to have Serum na of 130 #Hyponatremia Serum na now normal d/c IVF trend NA #Rash/Shingles now on oral valtrex d/c IVF #Multiple Sclerosis with Chronic Resp Failure supportive care Vent support Tyshawn Doe DO
--- NOTE | 2016-04-02 15:17 | PATH ---
Surgical Pathology Report Patient Name: ALONDRA VILA [facility]. Rec. #: [id number] /Age/Gender: 1965 (Age: 51) / F Account: [id number] Location: [address] [place] [address]/[facility] Taken: 03/31/2016 Received: 03/31/2016 Reported: 04/02/2016 Physicians: Brooke Steven M.D. Jose Mendieta M.D. 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 Comment: The biopsy shows a bullous lesion with acantholysis and epidermal necrosis including necrotic keratinocytes and confluent necrosis and few giant cells. Inflammatory cells including eosinophils and neutrophils are present in the epidermis. No interface inflammation is seen. Superficial perivascular inflammation is seen in the dermis. The findings may represent viral infections such as VZV in proper clinical settings. Erythema multiforme/Vivek-Hari syndrome although may show similar histologic findings usually demonstrates prominent interface inflammation; bullous pemphigoid and bullous drug eruption is less likely to show extensive epidermal necrosis. No fungal organisms are identified with PAS stain. Immunohistochemical stains for HSV and CMV performed [place], [place] ([id number]) and interpret [facility] are negative. The case was discussed with Dr. Maurizio Mendieta on 04/02/16. Electronically Signed Awais Walls M.D. Gross Description Received in formalin, labeled with the patient's name and indicated on the requisition to be from the right inner thigh, is a 0.6 x 0.3 cm love, irregular, unoriented skin shave. The base is inked green and the specimen is submitted in toto in one cassette. /03/31/201603/31/2016
[2016-04-02] MEDS ORDERED: clonazePAM 0.5 MG TABLET PO SCH (20:00)
[2016-04-02] MEDS: MIRTAZAPINE 15 MG TABLET (FP) PO SCH (23:08)
[2016-04-02] MEDS: valACYclovir HCL 500 MG TABLET (FP) PO SCH (23:09)
[2016-04-03] MEDS: valACYclovir HCL 500 MG TABLET (FP) PO SCH ×2 (07:04→13:44)
[2016-04-03] MEDS: hydrALAZINE HCL 25 MG TABLET (FP) PO SCH ×2 (07:04→13:43)
[2016-04-03] MEDS: LEVOTHYROXINE NA 88 MCG TABLET (FP) PO SCH (07:04)
[2016-04-03] MEDS: BACLOFEN 10 MG TABLET (FP) PO SCH ×2 (07:05→13:44)
[2016-04-03] MEDS: carBAMazepine 100 MG TAB.CHEW PO SCH ×2 (08:38→12:22)
[2016-04-03] MEDS: amLODIPine BESYLATE 10 MG TABLET (FP) PO SCH (09:31)
[2016-04-03] MEDS: PANTOPRAZOLE 40 MG TABLET (FP) PO SCH (09:31)
[2016-04-03] MEDS: SERTRALINE HCL 25 MG TABLET (FP) PO SCH (09:32)
[2016-04-03 09:38] LABS: CALCIUM 8.7 mg/dL (8.5-10.1)
[2016-04-03 09:40] LABS: CREATININE 0.6 mg/dL (0.55-1.02)
--- NOTE | 2016-04-03 13:09 | DS ---
Physical Examination Vital Signs: Vital Signs Temperature 97.6 F 04/03/16 09:34 Pulse Rate 93 H 04/03/16 10:55 Respiratory Rate 18 04/03/16 09:34 Blood Pressure 171/79 04/03/16 09:34 O2 Sat by Pulse Oximetry (%) 95 04/03/16 10:55 Constitutional: Yes: Calm Neck: Yes: Other (trach) Cardiovascular: Yes: Regular Rate and Rhythm, S1, S2 Respiratory: Yes: Diminished Gastrointestinal: Yes: Normal Bowel Sounds, Soft Renal/: Yes: Raza Present Edema: No Integumentary: Yes: Rash (is less erythmatous and drying out blisters popped open) Neurological: Yes: Alert, Oriented, Pre-Existing Deficit Labs: CBC, BMP 04/01/16 06:00 04/03/16 08:15 Discharge Summary Reason For Visit: RASH Current Active Problems Disseminated herpes zoster (Acute) Erythema multiforme (Acute) Rash (Acute) Hospital Course: Chief Complaint: SENT IN FOR ACUTE RASH WITH BLISTERING WEEPING AREAS ON LEGS History of Present Illness: 51 Y/O FEMALE WITH MS WELL KNOWN TO OUR SERVICE PRESENTING WITH A DISSEMINATED RASH TO LOWER EXTREMITIES, WITH BLISTERING OPEN WEEPING AREAS. ORAL THRUSH, GENERALIZED WEAKNESS, +TRACHEOSTOMY ON COLLAR, FAMILY BEDSIDE. PATIENT HAS BEEN SEEING MIKE JOY FROM DERMATOLOGY FOR A SCALP RASH STARTED ON A NEW MEDICAL SHAMPOO. History Source: Patient, Family Member, Medical Record found to have disseminated shingles rash started on valtrex given prednisone then stopped had a skin biopsy done -vesicobulbous dermatitis iv valtrex to po valtrex 1 gm tid for 5 days hyponatremia improved with fluids now ok Condition: Improved - Instructions Diet, Activity, Other Instructions: valtrex 1gm po tid for 5 days Disposition: HOME - Home Medications Comprehensive Discharge Medication List: Ambulatory Orders Carbamazepine [Tegretol -] 100 mg PO TID tab.chew 08/27/14 Albuterol 0.083% Nebulizer Rocio [Ventolin 0.083% Nebulizer Soln -] 1 neb NEB Q4H PRN #0 amp 10/26/14 Clonazepam [Klonopin] 0.5 mg PO DAILY 05/08/15 Silver Sulfadiazine [Silvadene] 50 gm TP DAILY #1 cream..g. NS 11/28/15 Hydralazine HCl [Apresoline -] 25 mg PO TID tablet 12/08/15 Amlodipine Besylate [Norvasc -] 10 mg PO HS 02/06/16 Baclofen 5 mg PO DAILY 02/06/16 Mirtazapine 7.5 mg PO DAILY 02/06/16 Pantoprazole Sodium [Protonix] 40 mg PO DAILY 02/06/16 Potassium Chloride 20 meq PO DAILY 02/06/16 Sertraline HCl [Zoloft -] 25 mg PO TID 02/06/16 Levothyroxine [Synthroid -] 88 mcg PO DAILY@0700 #30 tablet 02/14/16 Cefuroxime Axetil [Ceftin -] 500 mg PO Q12H 03/28/16 Famciclovir [Famvir (Nf) -] 500 mg PO BID 03/28/16
[2016-04-03] MEDS ORDERED: ALBUTEROL SO4 2.5/IPRATROPIUM 0.5 INH SOL 3 ML VIAL.NEB. NEB ONE (14:03)
[2016-04-03 14:28] VITALS: BP 159/68; PULSE 79; TEMP 97.9
--- NOTE | 2016-04-03 16:01 | PN ---
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 (short form) - Note 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: Renal Follow up for Hyponatremia Pt seen and examined at the bedside no complaints for discharge today Vital Signs Temperature 97.9 F 04/03/16 14:25 Pulse Rate 79 04/03/16 14:25 Respiratory Rate 18 04/03/16 09:34 Blood Pressure 159/68 04/03/16 14:25 O2 Sat by Pulse Oximetry (%) 95 04/03/16 10:55 Intake & Output 03/31/16 04/01/16 04/02/16 04/03/16 23:59 23:59 23:59 23:59 Intake Total 850 1870 1850 0 Output Total 2500 3000 2100 1400 Balance -1650 -1130 -250 -1400 Gen: NAD, awake and alert. CVS: RRR Lungs: CTA Abd: soft NT/ND ext: no edema, clubbing or cyanosis CBC, BMP 04/01/16 06:00 04/03/16 08:15 Current Medications Amlodipine Besylate (Norvasc -) 10 mg PO DAILY [facility] Last Admin: 04/03/16 09:31 Dose: 10 mg Baclofen (Lioresal -) 5 mg PO TID [facility] Last Admin: 04/03/16 13:44 Dose: 5 mg Carbamazepine (Tegretol -) 100 mg PO TIDCM [facility] Last Admin: 04/03/16 12:22 Dose: 100 mg Clonazepam (Klonopin -) 0.5 mg PO DAILY@1999 [facility] Last Admin: 04/02/16 22:46 Dose: Not Given Diphenhydramine HCl (Benadryl -) 25 mg PO Q6H PRN PRN Reason: FOR ITCHING Hydralazine HCl (Apresoline -) 25 mg PO TID [facility] Last Admin: 04/03/16 13:43 Dose: 25 mg Levothyroxine Sodium (Synthroid -) 88 mcg PO DAILY@0700 [facility] Last Admin: 04/03/16 07:04 Dose: 88 mcg Mirtazapine (Remeron -) 7.5 mg PO HS [facility] Last Admin: 04/02/16 23:08 Dose: 7.5 mg Ondansetron HCl (Zofran Injection) 4 mg IVPUSH Q6H PRN PRN Reason: NAUSEA AND/OR VOMITING Pantoprazole Sodium (Protonix -) 40 mg PO DAILY [facility] Last Admin: 04/03/16 09:31 Dose: 40 mg Sertraline HCl (Zoloft -) 25 mg PO DAILY [facility] Last Admin: 04/03/16 09:32 Dose: 25 mg Valacyclovir HCl (Valtrex -) 1,000 mg PO TID [facility] Last Admin: 04/03/16 13:44 Dose: 1,000 mg A/p 51 year old woman with PMhx of Progressive Multiple Sclerosis, Chronic Respiratory failure on vent presented with rash and found to have Serum na of 130 #Hyponatremia serum Na stable off IVF #Rash/Shingles now on oral valtrex Renal function stable s/p IV Acyclovir #Multiple Sclerosis with Chronic Resp Failure supportive care Vent support Advised to repeat labs in 1 week as outpatient Thank you for allowing us to take part in the care of this patient Tyshawn Doe DO
== END 2016-04-03 16:15 | disposition home health service (06) | DRG 865 ==
LOC: JER 17:35 → JERBED 21:13 → UNDOADMIN 21:21 → JERBED 21:21 → J5S 03-31 15:32
PROVIDERS: ADMIT Family Medicine; ATTEND Family Medicine
PROC: 5A1955Z Respiratory Ventilation, Greater than 96 Consecutive Hours (ICD-10-PCS; principal; 2016-03-28)
PROC: 0HBKXZX Excision of Right Lower Leg Skin, External Approach, Diagnostic (ICD-10-PCS; 2016-03-31)
DX: B02.7 Disseminated zoster (principal); G82.50 Quadriplegia, unspecified; L89.324 Pressure ulcer of left buttock, stage 4; L89.314 Pressure ulcer of right buttock, stage 4; L89.154 Pressure ulcer of sacral region, stage 4; B37.0 Candidal stomatitis; Z99.11 Dependence on respirator [ventilator] status; J96.10 Chronic respiratory failure, unspecified whether with hypoxia or hypercapnia; E87.1 Hypo-osmolality and hyponatremia; G35 Multiple sclerosis; L51.9 Erythema multiforme, unspecified; Z74.01 Bed confinement status; Z93.0 Tracheostomy status; N31.9 Neuromuscular dysfunction of bladder, unspecified; E87.5 Hyperkalemia; E03.9 Hypothyroidism, unspecified; I10 Essential (primary) hypertension; H54.8 Legal blindness, as defined in USA
CPT/HCPCS: 36415; 71010-TC; 80048; 80053; 81003; 81015; 83605; 83735; 83930; 84100; 84300; 84443; 85025; 85027; 85651; 86038; 86140; 87040; 87086; 87186; 87255; 88305-TC; 94002; 94640; 99285-25; J0475

== ENCOUNTER 2016-05-04 11:38 | Inpatient (IN) | payer OTHER ==
[2016-05-04 12:01] VITALS: BMI 22.3
--- NOTE | 2016-05-04 12:04 | PDOC ---
History of Present Illness - General History Source: Old Records - History of Present Illness Initial Comments: 05/04/16 12:06 The patient is a 51-year-old woman, accompanied by her mother and home health aide, with a significant past medical history of hypertension, recurring urinary tract infections, multiple sclerosis, trigeminal neuralgia and seizure disorder who presents to the emergency department via EMS for further evaluation of altered mental status. Information was obtained by patient's mother. As per mother, the patient was recently admitted to this facility for shingles oin 03/28/2015. She stayed in the hospital for a course of 5 days and was discharge home. Post discharge, the patient has been overall better. However , the patient was noted to have a change in mental status over the weekend. The patient had family over and was at her baseline mental status, but throughout Wednesday night, she was noted to not respond to verbal commands. She was specifically noted to repeat phrases/statements at 04:00AM. Mother states that the patient had a similar episode when her Baclofen pump was infected. Patient's mother also notes that the patient's urine is cloudy and that she is short of breath. Allergies: Chloral Hydrate. Azathioprine. Adhesive tape. Past Surgical History: Baclofen implant. Social History: No tobacco, ETOH or recreational drug use. Primary Care Physician: Dr. Anne Lopez [phone] Neurologist: Dr. Rom Conroy [phone] Nurse First Aid: Dr. Brooke Steven [phone] <Lara Amaya - Last Filed: 05/04/16 14:40> <Delano Moeller - Last Filed: 05/04/16 16:44> - General Chief Complaint: Altered Mental Status Stated Complaint: AMS Time Seen by Provider: 05/04/16 11:51 Past History <Lara Amaya - Last Filed: 05/04/16 14:40> - Past Medical History Anemia: No Asthma: No Cancer: No CVA: No COPD: No CHF: No Dementia: (M.S,TRIG.NEUROLAGIA) Diabetes: No GI Disorders: Yes Disorders: Yes (baclofen implant) HTN: Yes Hypercholesterolemia: No Liver Disease: No Suicide Attempt (Hx): Yes Seizures: Yes Thyroid Disease: No - Surgical History Abdominal Surgery: No Appendectomy: No Cardiac Surgery: No Cholecystectomy: No GI Surgery: (BACLOFEN IMPLANT) Lung Surgery: Yes (TRACH) Neurologic Surgery: No Orthopedic Surgery: No - Immunization History Immunization Up to Date: Yes - Psycho/Social/Smoking Cessation Hx Anxiety: No Suicidal Ideation: No Smoking Status: No Smoking History: Never smoked Have you smoked in the past 12 months: No Number of Cigarettes Smoked Daily: 0 Cigars Per Day: 0 Hx Alcohol Use: No Drug/Substance Use Hx: No Substance Use Type: None Hx Substance Use Treatment: No <Delano Moeller - Last Filed: 05/04/16 16:44> - Past Medical History Allergies/Adverse Reactions: Allergies Allergy/AdvReac Type Severity Reaction Status Date / Time chloral hydrate Allergy Intermediate Rash Verified 05/04/16 12:01 [Chloral Hydrate] azathioprine [From Imuran] Allergy Rash Verified 05/04/16 12:01 azathioprine sodium Allergy Rash Verified 05/04/16 12:01 [From Imuran] adhesive tape AdvReac Severe sensitivity Verified 05/04/16 12:01 to glue adhesive AdvReac Unknown Verified 05/04/16 12:01 Home Medications: Ambulatory Orders Carbamazepine [Tegretol -] 100 mg PO TID tab.chew 08/27/14 Albuterol 0.083% Nebulizer Rocio [Ventolin 0.083% Nebulizer Soln -] 1 neb NEB Q4H PRN #0 amp 10/26/14 Clonazepam [Klonopin] 0.5 mg PO DAILY 05/08/15 Hydralazine HCl [Apresoline -] 25 mg PO TID tablet 12/08/15 Amlodipine Besylate [Norvasc -] 10 mg PO HS 02/06/16 Baclofen 5 mg PO DAILY 02/06/16 Mirtazapine 7.5 mg PO DAILY 02/06/16 Pantoprazole Sodium [Protonix] 40 mg PO DAILY 02/06/16 Potassium Chloride 20 meq PO DAILY 02/06/16 Sertraline HCl [Zoloft -] 25 mg PO TID 02/06/16 Levothyroxine [Synthroid -] 88 mcg PO DAILY@0700 #30 tablet 02/14/16 Valacyclovir HCl [Valtrex -] 1,000 mg PO TID #20 tablet 04/03/16 Review of Systems - Review of Systems Able to Perform ROS?: No (nonverbal) <Delano Moeller - Last Filed: 05/04/16 16:44> *Physical Exam - Vital Signs Last Vital Signs Temp Pulse Resp BP Pulse Ox 71 18 92/60 98 05/04/16 11:48 05/04/16 11:48 05/04/16 11:48 05/04/16 11:48 - Physical Exam Comments: 05/04/16 12:06 GENERAL: The patient is awake. Alert. Following commands but minimally verbal. HEAD: Normal with no signs of trauma. EYES: Pupils equal, round and reactive to light, extraocular movements intact, sclera anicteric, conjunctiva clear with no pallor. ENT: Ears normal, nares patent, oropharynx clear without exudates. Moist mucous membranes. Trach in place without swelling or erythema. no discharge or bleeding NECK: Normal range of motion, supple without lymphadenopathy, JVD, or masses. LUNGS: Coarse breath sounds throughout with some bibasilar crackles right worse than left. HEART: Regular rate and rhythm, normal S1 and S2 without murmur or rub. ABDOMEN: There is a subcutaneous right lower quadrant pump in place. The incisions site looks well healed and is intact No bladder distention or tenderness. Soft/nontender/nondistended. BS wnl. No guarding or rebound. No palpable masses. No hepatosplenomegaly. : Raza in place with urine with sediment. EXTREMITIES: Normal range of motion, bilateral trace ankle edema. No clubbing or cyanosis. No cords, erythema, or tenderness. NEUROLOGICAL: Cranial nerves II through XII grossly intact. Normal speech. PSYCH: Deferred. SKIN: Right thigh singles is healing with no open vesicles. Right thigh hyperpigmenting skin lesion to the knee which is circumferential. There is a 4cm superficial skin blister on the posterior aspect of the right thigh. <Lara Amaya - Last Filed: 05/04/16 14:40> - Vital Signs Last Vital Signs Temp Pulse Resp BP Pulse Ox 71 18 92/60 98 05/04/16 11:48 05/04/16 11:48 05/04/16 11:48 05/04/16 11:48 <Delano Moeller - Last Filed: 05/04/16 16:44> Heart Score/ECG Review #1 ECG reviewed & interpreted by me at: 12:19 General ECG Interpretation: Sinus Rhythm, Normal Rate (50), Normal Intervals ( qtc 415), No acute ischemic changes <Delano Moeller - Last Filed: 05/04/16 16:44> ED Treatment Course - LABORATORY CBC & Chemistry Diagram: 05/04/16 13:48 05/04/16 13:20 <Lara Amaya - Last Filed: 05/04/16 14:40> - LABORATORY CBC & Chemistry Diagram: 05/04/16 13:48 05/04/16 13:20 <Delano Moeller - Last Filed: 05/04/16 16:44> Medical Decision Making - Medical Decision Making 05/04/16 14:[address] Lopez. Case discussed. <Lara Amaya - Last Filed: 05/04/16 14:40> - Critical Care Time Total Critical Care Time (minutes): 47 Critical Care Statement: The care of this patient involved high complexity decision making to prevent further life threatening deterioration of the patient 's condition and/or to evalute & treat vital organ system(s) failure or risk of failure. - Medical Decision Making 05/04/16 12:41 A portion of this note was documented by scribe services under my direction. I have reviewed the details of the note, within reason, and agree with the documentation with the following case summary and management plan written by me. 51-year-old female with history of advanced MS, trach collar, indwelling Raza catheter, admission about one month ago for disseminated shingles now presents brought in by EMS with family after they noticed decreased responsiveness since yesterday, exacerbated since 4 AM. Patient has been alert, no loss of consciousness, but not as verbal as usual. No measured fevers or night sweats. Hypothermic, hypotensive, O2 sat within normal limits. Patient is lying comfortably in bed, eyes open and following commands, but minimally verbal saying only yes/no. Oropharynx clear, trach clear Remainder of exam as noted, seemingly purulent urine in Raza catheter with sediment. 51-year-old female with MS and decreased responsiveness, altered mental status. Similar episode recently 2/2 baclofen overdose from pump malfunction, now s/p replaced pump. Otherwise presentation most concerning for infectious process given the hypothermia, possible UTI versus pneumonia source. Sepsis protocol initiated baclofen level sent through lab IV fluid bolus Empiric antibiotics - prior urine cxs with enterobacter minimally sensitive to penems. Will cover with vanco and meropenem Admission 05/04/16 13:37 CXR shows ? infiltrate. Persistent hypotension but easily palpable radial pulse and fully alert. Receiving IVF and abx. 05/04/16 14:48 Accepted for admission by Dr. Lopez. Accepted for ICU by Dr. Fox. WBC 16, baseline anemia of 8, hyponatremia 127, glucose 64 given D50 1/2 amp. 05/04/16 15:58 Persistently hypotensive, presume baclofen toxicity v. autonomic instability 2/ MS. Lactate normal and + urine output in cathether, so doubt shock. Receiving IVF resuscitation, received abx, awaiting ICU bed. 05/04/16 16:37 20g IV placed in R hand by me. Mental status actually improving, speaking more. Will start low dose peripheral dopamine - continue to question whether this is all baclofen toxicity or autonomic instability (miri, hypotension). Proceed with ICU admission. <Delano Moeller - Last Filed: 05/04/16 16:44> *DC/Admit/Observation/Transfer - Attestations Scribe Attestion: 05/04/16 12:06 Documentation prepared by Lara Amaya, acting as medical records receptionist for Delano Moeller MD. <Lara Amaya - Last Filed: 05/04/16 14:40> - Discharge Dispostion Admit: Yes <Delano Moelelr - Last Filed: 05/04/16 16:44> Diagnosis at time of Disposition: Multiple sclerosis, Hyponatremia Hypothermia Qualifiers: Encounter type: initial encounter Qualified Code(s): T68.XXXA - Hypothermia, initial encounter Altered mental status Qualifiers: Altered mental status type: transient alteration of awareness Qualified Code(s) : R40.4 - Transient alteration of awareness Hypotension Qualifiers: Hypotension type: other hypotension type Qualified Code(s): I95.89 - Other hypotension - Discharge Dispostion Condition at time of disposition: Guarded - Referrals
[2016-05-04] MEDS ORDERED: SODIUM CHLORIDE 1,000 ML IV ONE (12:07)
[2016-05-04] MEDS ORDERED: MEROPENEM 1 MG in DEXTROSE 5%-WATER - 100 ML IVPB ONE (12:46)
[2016-05-04] MEDS ORDERED: VANCOMYCIN 1,000 MG in DEXTROSE 5%-WATER - 250 ML IVPB ONE (12:46)
[2016-05-04] MEDS ORDERED: VANCOMYCIN 1 GRAM (PRE-DOCKED) 250 ML IVPB ONE (13:48)
[2016-05-04 13:55] LABS: MCH 31.3 pg (25.7-33.7); MEAN CELL VOLUME 96.4 fl (80-96); WHITE BLOOD COUNT 16.2 K/mm3 (4.0-10.0)
[2016-05-04 13:56] LABS: MCHC 32.5 g/dl (32.0-36.0); RDW 18.1 % (11.6-15.6)
[2016-05-04 13:57] LABS: BASOPHIL 0.3 % (0-2.0); EOSINOPHIL 0.1 % (0-4.5); NEUTROPHILS 96.6 % (42.8-82.8); PLATELET COUNT 78 K/MM3 (134-434)
[2016-05-04 14:00] LABS: SGOT/AST 28 U/L (15-37)
[2016-05-04 14:02] LABS: ANION GAP 15 (8-16); CALCIUM 8.2 mg/dL (8.5-10.1); CO2 19 mmol/L (21-32); GLUCOSE,RANDOM 64 mg/dL (74-106); SGPT/ALT 35 U/L (12-78)
[2016-05-04 14:05] LABS: TROPONIN I < 0.02 ng/ml (0.00-0.05)
[2016-05-04 14:06] LABS: ALK PHOS 257 U/L (45-117); BILIRUBIN,TOTAL 0.4 mg/dL (0.2-1.0); TOT PROT 5.4 g/dl (6.4-8.2)
[2016-05-04 14:12] LABS: INR 1.19 (0.82-1.09); PROTHROMBIN TIME (PATIENT) 13.1 SEC (9.98-11.88)
[2016-05-04 14:15] LABS: ACTIVATED PTT 39.2 SECONDS (26.9-34.4)
[2016-05-04 14:18] LABS: VENOUS BLOOD GAS HCO3 23.4 meq/L (19-25); VENOUS PH 7.28 (7.32-7.42)
[2016-05-04] MEDS ORDERED: DEXTROSE 50%-WATER 50 ML VIAL IVPUSH ONE (14:30)
[2016-05-04] MEDS ORDERED: MEROPENEM 1 GM in DEXTROSE 5%-WATER - 100 ML IVPB ONE (14:30)
[2016-05-04] MEDS: SODIUM CHLORIDE 0.9% 1000 ML INFUS.BAG IV PRN ×2 (15:05→17:28)
[2016-05-04 15:30] LABS: URINE APPEARANCE TURBID; URINE BILIRUBIN NEGATIVE (NEGATIVE); URINE BLOOD NEGATIVE (NEGATIVE); URINE COLOR YELLOW; URINE GLUCOSE (UA) 1+ (NEGATIVE); URINE KETONE NEGATIVE (NEGATIVE); URINE NITRITE NEGATIVE (NEGATIVE); URINE UROBILINOGEN NEGATIVE E.U./dl (0.2-1.0)
[2016-05-04 15:34] LABS: URINE LEUK ESTERASE 3+ (NEGATIVE); URINE PROTEIN 2+ (NEGATIVE)
[2016-05-04 15:56] LABS: URINE RBC 15 /hpf (0-3); URINE WBC 537 /hpf (3-5)
[2016-05-04 16:00] LABS: URINE BACTERIA MANY /hpf (NONE SEEN)
[2016-05-04] MEDS ORDERED: DEXTROSE 50%-WATER 50 ML DISP.SYRIN ONE (16:07)
[2016-05-04] MEDS ORDERED: DOPAMINE 400 MG/D5W - 250 ML IVPB ONE (17:12)
[2016-05-04] MEDS: DOPAMINE 400 MG/D5W - 250 ML IVPB SCH (17:28)
[2016-05-04] MEDS ORDERED: ALBUTEROL SO4 2.5/IPRATROPIUM 0.5 INH SOL 3 ML VIAL.NEB. NEB PRN (21:41)
[2016-05-04] MEDS ORDERED: clonazePAM 0.5 MG TABLET PO PRN (21:41)
[2016-05-04] MEDS: hydrALAZINE HCL 25 MG TABLET (FP) PO SCH (21:46)
[2016-05-04] MEDS ORDERED: MIRTAZAPINE 15 MG TABLET (FP) ONE (21:50)
[2016-05-04] MEDS: valACYclovir HCL 1000 MG TABLET PO SCH (22:07)
[2016-05-04] MEDS: MIRTAZAPINE 15 MG TABLET (FP) PO SCH (22:07)
--- NOTE | 2016-05-04 23:52 | CONSULT ---
Consult Consult Specialty:: Pulm/CC - History of Present Illness History of Present Illness: Pt is a 51yr old woman with PMHx of HTN, MS with associated quadraplegia, chronic respiratory insufficiency with trach and vent use overnight, seizure disorder, hypothyroidism and multiple admissions for MDR infections (UTI, sacral wound). Pt presents to the ER with CC of AMS. In the ER pt with wbc 16.2 , H/H 8.3*25.4, Sodium 127, BUN/Cr 29/1.0 and glucose 64, +UA. Concern for Baclofen toxicity, serum level sent and pending. Pt give fluid bolus x2, started on Taylor and Vanc and admitted to the ICU for further management. Upon assessment pt is lethargic but able to respond to some questions. Pt denies chest pain/headache/sob/n/v/d. Pt borderline hypotensive to 60s on dopamine for hemodynamic support, HR 70s, sinus on tele, hypothermic, started on kinsey hugger. 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: Multiple Sclerosis (quadraplegia), Other (legally blind, trigeminal neuralgia -> baclofen pump) Cardio/Vascular: Yes: HTN, Hyperlipdemia Pulmonary: Yes: Pneumonia (recurrent aspiration -> last one in 05/21 (RLL)), Other (hypercapneic respiratory failure s/p trach) Gastrointestinal: Yes: Constipation (chronic) Renal/: Yes: Neurogenic Bladder ( neurogenic bladder, chronic perera catheter) ...LMP: 06/07/12 Infectious Disease: Yes: Other (pneumonia, uti treated by urologist) Musculoskeletal: Yes: Other Dermatology: Yes: Other (chronic decubitus followed by wound care) Additional Medical History: trigeminal neuralgia, baclofen pump. chronic decubitus followed by wound care. neurogenic bladder, chronic perera catheter - Alcohol/Substance Use Hx Alcohol Use: No History of Substance Use: reports: None - Smoking History Smoking history: Never smoked Have you smoked in the past 12 months: No Aproximately how many cigarettes per day: 0 - Social History Usual Living Arrangement: With Parent ADL: Support Services History of Recent Travel: No Home Medications - Allergies Allergies/Adverse Reactions: Allergies Allergy/AdvReac Type Severity Reaction Status Date / Time chloral hydrate Allergy Intermediate Rash Verified 05/04/16 12:01 [Chloral Hydrate] azathioprine [From Imuran] Allergy Rash Verified 05/04/16 12:01 azathioprine sodium Allergy Rash Verified 05/04/16 12:01 [From Imuran] adhesive tape AdvReac Severe sensitivity Verified 05/04/16 12:01 to glue adhesive AdvReac Unknown Verified 05/04/16 12:01 - Home Medications Home Medications: Ambulatory Orders Carbamazepine [Tegretol -] 100 mg PO TID tab.chew 08/27/14 Albuterol 0.083% Nebulizer Rocio [Ventolin 0.083% Nebulizer Soln -] 1 neb NEB Q4H PRN #0 amp 10/26/14 Clonazepam [Klonopin] 0.5 mg PO DAILY 05/08/15 Hydralazine HCl [Apresoline -] 25 mg PO TID tablet 12/08/15 Amlodipine Besylate [Norvasc -] 10 mg PO HS 02/06/16 Baclofen 5 mg PO DAILY 02/06/16 Mirtazapine 7.5 mg PO DAILY 02/06/16 Pantoprazole Sodium [Protonix] 40 mg PO DAILY 02/06/16 Potassium Chloride 20 meq PO DAILY 02/06/16 Sertraline HCl [Zoloft -] 25 mg PO TID 02/06/16 Levothyroxine [Synthroid -] 88 mcg PO DAILY@0700 #30 tablet 02/14/16 Valacyclovir HCl [Valtrex -] 1,000 mg PO TID #20 tablet 04/03/16 Review of Systems Unable to obtain ROS, reason: CARAL Physical Exam Vital Signs: Vital Signs Period Temp Pulse Resp BP Sys/Morillo Pulse Ox Last 24 Hr 90 F-97.6 F 40-73 8-19 47-126/31-71 93-100 Intake & Output 05/02/16 05/03/16 05/04/16 05/05/16 23:59 23:59 23:59 23:59 Intake Total 3660 Output Total 270 800 Balance 3390 -800 Weight 160 lb 0.008 oz Constitutional: Yes: Well Nourished, No Distress, Calm Eyes: Yes: WNL, Other (sluggish pupillary response) HENT: Yes: WNL Neck: Yes: WNL Cardiovascular: Yes: S1, S2 (sinus on tele) Respiratory: Yes: Mechanically Ventilated, Rhonchi (throughout, bilateral), Other (trach) Gastrointestinal: Yes: Normal Bowel Sounds, Soft, Abdomen, Obese. No: Tenderness ...Rectal Exam: Yes: Deferred Renal/: Yes: Perera Present (yellow output) Musculoskeletal: Yes: WNL Extremities: Yes: Cool Edema: Yes Edema: LLE: Trace, RLE: Trace Peripheral Pulses WNL: Yes (+1 bilateral pedal pulses) Integumentary: Yes: Other (trunk and upper thigh red raised patches, consistent with healing bilateral shingles+/- dermatitis) Wound/Incision: Yes: Other (tunneling sacral wound and to left buttocks) Neurological: Yes: Confusion, Lethargy (slight) Labs: Abnormal Lab Results 05/04/16 05/04/16 05/04/16 13:20 13:20 13:48 WBC 16.2 H RBC 2.63 L Hgb 8.3 L D Hct 25.4 L MCV 96.4 H RDW 18.1 H D Plt Count 78 L D Neutrophils % 96.6 H Lymphocytes % 1.7 L D Monocytes % 1.3 L INR 1.19 H PTT (Actin FS) 39.2 H VBG pH POC VBG pO2 Sodium 127 L Chloride 93 L Carbon Dioxide 19 L D BUN 29 H D Random Glucose 64 L D Calcium 8.2 L Alkaline Phosphatase 257 H D Total Protein 5.4 L Albumin 2.0 L Urine Protein Urine Glucose (UA) Ur Leukocyte Esterase 05/04/16 05/04/16 13:52 13:52 WBC RBC Hgb Hct MCV RDW Plt Count Neutrophils % Lymphocytes % Monocytes % INR PTT (Actin FS) VBG pH 7.28 L POC VBG pO2 53.4 H Sodium Chloride Carbon Dioxide BUN Random Glucose Calcium Alkaline Phosphatase Total Protein Albumin Urine Protein 2+ H Urine Glucose (UA) 1+ H Ur Leukocyte Esterase 3+ H Imaging - Results Chest X-ray: Report Reviewed, Image Reviewed Assessment/Plan Pt is a 51yr old woman with PMHx of HTN, MS with associated quadraplegia, chronic respiratory insufficiency with trach and vent use overnight, seizure disorder, hypothyroidism and multiple admissions for MDR infections (UTI, sacral wound). Now in the ICU for management of urosepsis vs baclofen toxicity. Pulm: Chronic respiratory insufficiency -Vent support overnight and prn for sat >92% -Chest PT -Nebulizers -f/u abg/a.m chest xray ID: Hx of MDR infections, now with +UA, recent shingles outbreak, no vesicles appreciated on exam -f/u cultures -Started on Taylor and Vanc, will continue overnight -ID to see pt in a.m, continue antibiotics per ID -f/u repeat lactic acid Tox: Concern for baclofen toxicity -f/u serum level -Monitor renal function -Seizure precautions -Close pulse ox/telemetry monitoring -Kinsey durham prn Renal: -IVF as tolerated -I/Os -Replete electrolytes prn Heme: -Monitor h/h, transfuse prn Cardiac -Hold antihypertensives overnight -Dopamine prn for MAP 65-75 -f/u enzymes Neuro: MS -Pain management -Antiepileptics Endo -Continue home synthroid Prophylactic -DVT -PPI
[2016-05-05] MEDS ORDERED: MEROPENEM 500 MG in DEXTROSE 5%-WATER - 100 ML IVPB ONE (00:11)
[2016-05-05] MEDS: DOPAMINE 400 MG/D5W - 250 ML IVPB SCH ×2 (01:00→10:56)
[2016-05-05] MEDS: SODIUM CHLORIDE 1,000 ML IV SCH ×2 (02:25→13:25)
[2016-05-05 02:28] LABS: ALLENS TEST POSITIVE; ART PUNCT SITE LEFT RADIAL; ARTERIAL BLD GAS O2 SATURATION 95.5 % (90-98.9); ARTERIAL BLOOD GAS BASE EXCESS -2.8 meq/l (-2-2); ARTERIAL BLOOD GAS HCO3 22.3 meq/L (22-26); ARTERIAL BLOOD GAS PO2 79.9 mmHg (80-100); ARTERIAL BLOOD GAS pH 7.34 (7.35-7.45); MCH 31.9 pg (25.7-33.7); MCHC 33.2 g/dl (32.0-36.0); MEAN CELL VOLUME 96.1 fl (80-96); MEAN PLT VOLUME 9.8 fl (7.5-11.1); PLATELET COUNT 124 K/MM3 (134-434); PT. ON O2? YES; RDW 18.1 % (11.6-15.6); WHITE BLOOD COUNT 26.5 K/mm3 (4.0-10.0)
[2016-05-05] MEDS ORDERED: DOPAMINE 400 MG/D5W - 250 ML IVPB ONE (02:28)
[2016-05-05 02:29] LABS: LPM/O2% 50; MECH. VENT. YES; TYPE OF O2 VENT; VENT RATE 14; VT/PRESS 450
[2016-05-05 02:41] LABS: INR 1.06 (0.82-1.09); PROTHROMBIN TIME (PATIENT) 11.7 SEC (9.98-11.88)
[2016-05-05 02:44] LABS: ACTIVATED PTT 36.6 SECONDS (26.9-34.4)
[2016-05-05 02:51] LABS: ALBUMIN 2.1 g/dl (3.4-5.0); ANION GAP 10 (8-16); BILIRUBIN,TOTAL 0.3 mg/dL (0.2-1.0); CALCIUM 8.6 mg/dL (8.5-10.1); CO2 24 mmol/L (21-32); GLUCOSE,RANDOM 71 mg/dL (74-106); MAGNESIUM 2.2 mg/dL (1.8-2.4); PHOSPHOROUS 3.7 mg/dL (2.5-4.9); SGOT/AST 55 U/L (15-37); SGPT/ALT 54 U/L (12-78)
[2016-05-05 02:55] LABS: ALK PHOS 316 U/L (45-117); TROPONIN I < 0.02 ng/ml (0.00-0.05)
[2016-05-05 05:08] LABS: METAMYELOCYTE 1 % (0-2); PLATELET ESTIMATE ADEQUATE (NORMAL)
[2016-05-05 05:09] LABS: ANISOCYTOSIS 2+
[2016-05-05] MEDS: hydrALAZINE HCL 25 MG TABLET (FP) PO SCH (05:49)
[2016-05-05 06:11] LABS: MCH 31.2 pg (25.7-33.7); MCHC 32.3 g/dl (32.0-36.0); MEAN CELL VOLUME 96.6 fl (80-96); MEAN PLT VOLUME 9.7 fl (7.5-11.1); PLATELET COUNT 81 K/MM3 (134-434); RDW 17.8 % (11.6-15.6); WHITE BLOOD COUNT 13.4 K/mm3 (4.0-10.0)
[2016-05-05 06:32] LABS: ALBUMIN 1.3 g/dl (3.4-5.0); ANION GAP 8 (8-16); CO2 21 mmol/L (21-32); CREATININE 0.7 mg/dL (0.55-1.02); SGOT/AST 30 U/L (15-37); SGPT/ALT 35 U/L (12-78)
[2016-05-05 06:34] LABS: ALK PHOS 199 U/L (45-117); BILIRUBIN,TOTAL 0.2 mg/dL (0.2-1.0); TOT PROT 3.7 g/dl (6.4-8.2)
[2016-05-05 06:48] LABS: CALCIUM 5.9 mg/dL (8.5-10.1); GLUCOSE,RANDOM 33 mg/dL (74-106)
[2016-05-05] MEDS ORDERED: DEXTROSE 50%-WATER 50 ML VIAL IVPUSH ONE ×2 (06:49→08:42)
[2016-05-05] MEDS ORDERED: DEXTROSE 50%-WATER 50 ML DISP.SYRIN ONE (06:50)
[2016-05-05] MEDS ORDERED: LEVOTHYROXINE NA 88 MCG TABLET (FP) PO SCH (07:00)
--- NOTE | 2016-05-05 07:34 | HP ---
Admitting History and Physical - Admission History of Present Illness: 51yr old woman with PMHx of HTN, MS with associated quadraplegia, chronic respiratory insufficiency with trach and vent use overnight, seizure disorder, hypothyroidism and multiple admissions for MDR infections (UTI, sacral wound). Pt presents to the ER with CC of AMS. In the ER pt with wbc 16.2, H/H 8.3*25.4, Sodium 127, BUN/Cr 29/1.0 and glucose 64, +UA. Concern for Baclofen toxicity, serum level sent and pending. Pt give fluid bolus x2, started on Taylor and Vanc and admitted to the ICU for further management. Upon assessment pt is lethargic but able to respond to some questions. on kinsey durham. 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: Multiple Sclerosis (quadraplegia), Other (legally blind, trigeminal neuralgia -> baclofen pump) Cardiovascular: Yes: HTN, Hyperlipdemia Pulmonary: Yes: Pneumonia (recurrent aspiration -> last one in 05/21 (RLL)), Other (hypercapneic respiratory failure s/p trach) Gastrointestinal: Yes: Constipation (chronic) Renal/: Yes: Neurogenic Bladder ( neurogenic bladder, chronic perera catheter) ...LMP: 06/07/12 Heme/Onc: Yes: Anemia Infectious Disease: Yes: Other (pneumonia, uti treated by urologist) Musculoskeletal: Yes: Other Dermatology: Yes: Other (chronic decubitus followed by wound care) - Smoking History Smoking history: Never smoked Have you smoked in the past 12 months: No Aproximately how many cigarettes per day: 0 - Alcohol/Substance Use Hx Alcohol Use: No History of Substance Use: reports: None - Social History ADL: Support Services History of Recent Travel: No Home Medications - Allergies Allergies/Adverse Reactions: Allergies Allergy/AdvReac Type Severity Reaction Status Date / Time chloral hydrate Allergy Intermediate Rash Verified 05/04/16 12:01 [Chloral Hydrate] azathioprine [From Imuran] Allergy Rash Verified 05/04/16 12:01 azathioprine sodium Allergy Rash Verified 05/04/16 12:01 [From Imuran] adhesive tape AdvReac Severe sensitivity Verified 05/04/16 12:01 to glue adhesive AdvReac Unknown Verified 05/04/16 12:01 - Home Medications Home Medications: Ambulatory Orders Carbamazepine [Tegretol -] 100 mg PO TID tab.chew 06/22/15 Albuterol 0.083% Nebulizer Rocio [Ventolin 0.083% Nebulizer Soln -] 1 neb NEB Q4H PRN #0 amp 10/26/14 Clonazepam [Klonopin] 0.5 mg PO DAILY 05/08/15 Hydralazine HCl [Apresoline -] 25 mg PO TID tablet 12/08/15 Amlodipine Besylate [Norvasc -] 10 mg PO HS 02/06/16 Baclofen 5 mg PO DAILY 02/06/16 Mirtazapine 7.5 mg PO DAILY 02/06/16 Pantoprazole Sodium [Protonix] 40 mg PO DAILY 02/06/16 Potassium Chloride 20 meq PO DAILY 02/06/16 Sertraline HCl [Zoloft -] 25 mg PO TID 02/06/16 Levothyroxine [Synthroid -] 88 mcg PO DAILY@0700 #30 tablet 02/14/16 Valacyclovir HCl [Valtrex -] 1,000 mg PO TID #20 tablet 04/03/16 Review of Systems - Review of Systems Constitutional: reports: Lethargy, Weakness Physical Examination Vital Signs: Vital Signs Temperature 97.8 F 05/05/16 07:00 Pulse Rate 96 H 05/05/16 07:00 Respiratory Rate 14 05/05/16 07:00 Blood Pressure 83/34 05/05/16 07:00 O2 Sat by Pulse Oximetry (%) 93 L 05/05/16 00:52 Cardiovascular: Yes: Tachycardia, S1, S2 Respiratory: Yes: Diminished, Rhonchi Gastrointestinal: Yes: Normal Bowel Sounds, Soft Edema: No Neurological: Yes: Lethargy, Weakness Labs: CBC, BMP 05/05/16 05:10 05/05/16 05:10 Problem List - Problems (1) Sepsis Assessment/Plan: IV ABX CULTURES ID CONSUULT PRESSERS Code(s): A41.9 - SEPSIS, UNSPECIFIED ORGANISM Qualifiers: Sepsis type: sepsis due to unspecified organism Qualified Code(s): A41.9 - Sepsis, unspecified organism (2) Altered mental status Assessment/Plan: DUE TO ABOVE Code(s): R41.82 - ALTERED MENTAL STATUS, UNSPECIFIED Qualifiers: Altered mental status type: transient alteration of awareness Qualified Code(s): R40.4 - Transient alteration of awareness (3) Hyponatremia Assessment/Plan: IVF MONITOR Laboratory Tests 05/05/16 05/05/16 02:00 05:10 Sodium 126 L 137 Code(s): E87.1 - HYPO-OSMOLALITY AND HYPONATREMIA (4) Multiple sclerosis Code(s): G35 - MULTIPLE SCLEROSIS (5) Adrenal insufficiency Assessment/Plan: IV SOLUCORTEF ENDO Code(s): E27.40 - UNSPECIFIED ADRENOCORTICAL INSUFFICIENCY (6) Anemia Assessment/Plan: REPEAT TRANSFUSE Code(s): D64.9 - ANEMIA, UNSPECIFIED Qualifiers: Other causes of anemia: chronic disease, other
[2016-05-05] MEDS ORDERED: HYDROCORTISONE SOD SUCCINATE 100 MG/2 ML VIAL IVPB SCH (07:45)
[2016-05-05 08:43] LABS: C-REACTIVE PROTEIN 18.2 MG/DL (0.00-0.3)
[2016-05-05 08:43] LABS: MCH 31.5 pg (25.7-33.7); MCHC 32.7 g/dl (32.0-36.0); MEAN CELL VOLUME 96.3 fl (80-96); MEAN PLT VOLUME 8.8 fl (7.5-11.1); PLATELET COUNT 113 K/MM3 (134-434); WHITE BLOOD COUNT 19.6 K/mm3 (4.0-10.0)
[2016-05-05 08:52] LABS: FREE T4 1.18 ng/dl (0.76-1.46); THYROID STIMULATING HORMONE 0.57 uIU/ml (0.358-3.74)
[2016-05-05] MEDS ORDERED: CALCIUM GLUCONATE 10% - 1,000 MG/10 ML VIAL IVPB ONE (09:30)
[2016-05-05 09:31] LABS: INR 1.22 (0.82-1.09); PROTHROMBIN TIME (PATIENT) 13.5 SEC (9.98-11.88)
[2016-05-05 09:34] LABS: ACTIVATED PTT 39.5 SECONDS (26.9-34.4)
--- NOTE | 2016-05-05 09:40 | PN ---
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 (short form) - Note 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: ID Consult dictated Sepsis/ septic shock UTI/ Sepsis secondary to UTI Hx MDR urinary tract pathogens MS/neurogenic bladder/ indwelling perera catheter Pending sepsis workup, empiric meropenem/ vancomycin Critical care time 35min
[2016-05-05] MEDS ORDERED: SERTRALINE HCL 25 MG TABLET (FP) PO SCH (10:00)
[2016-05-05] MEDS ORDERED: MEROPENEM 500 MG VIAL (RESTRICTED TO ID) IVPB SCH (10:00)
[2016-05-05] MEDS ORDERED: PANTOPRAZOLE 40 MG TABLET (FP) PO SCH (10:00)
[2016-05-05] MEDS ORDERED: amLODIPine BESYLATE 10 MG TABLET (FP) PO SCH (10:00)
[2016-05-05] MEDS ORDERED: VANCOMYCIN 1,000 MG in DEXTROSE 5%-WATER - 250 ML IVPB SCH (10:00)
[2016-05-05] MEDS: HYDROCORTISONE SOD SUCCINATE 100 MG/2 ML VIAL IVPB SCH ×2 (10:30→17:06)
[2016-05-05] MEDS: PANTOPRAZOLE SODIUM 100 ML IVPB SCH ×2 (10:56→21:59)
[2016-05-05] MEDS ORDERED: PT OWN MED DRAWER 7, Y5N ONE ×3 (11:00→21:56)
[2016-05-05] MEDS: VANCOMYCIN 1 GRAM (PRE-DOCKED) 1,000 MG/250 ML BAG IVPB SCH ×2 (11:01→21:59)
[2016-05-05] MEDS: ALBUTEROL SO4 2.5/IPRATROPIUM 0.5 INH SOL 3 ML VIAL.NEB. NEB SCH ×4 (12:06→23:49)
[2016-05-05] MEDS: MEROPENEM 500 MG in DEXTROSE 5%-WATER - 100 ML IVPB SCH ×2 (12:13→17:06)
[2016-05-05] MEDS ORDERED: MIDAZOLAM HCL 2 MG/2 ML SINGLE DOSE VIAL ONE (12:26)
--- NOTE | 2016-05-05 12:34 | CONS ---
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 She was admitted to the hospital from home on May 04, 2016 with altered mental status and cloudy urine. She was noted to be hypotensive. The patient required IV fluid hydration and pressors. She was transferred to the intensive care unit. Urinalysis showed many white cells. White blood cell count was markedly elevated. She was empirically treated with Meropenem and vancomycin for presumed multidrug-resistant urinary tract infection/sepsis secondary to UTI. At the present time, she is awake; however, she is lethargic. She has had a recent hospital admission in March 2016 with altered mental status. She was found to have disseminated herpes zoster. In the past she has also had episodes of altered mental status secondary to urosepsis as well as adverse drug reaction to baclofen. The patient has a history of indwelling Raaz catheter and has it changed approximately every 3 weeks. It was last changed 1 week ago. No reports of high-grade fever, shaking chills, labored breathing, cough, vomiting, diarrhea. She does have a decubitus ulcer. PAST MEDICAL HISTORY: Positive for multiple sclerosis, quadriparesis, neurogenic bladder with indwelling Raza catheter, hypertension, seizure disorder, history of multidrug-resistant pathogens. ALLERGIES: CHLORAL HYDRATE and AZATHIOPRINE. MEDICATIONS: Includes Solu-Cortef, Tegretol, Remeron, Klonopin, dopamine, Valtrex, Protonix, Synthroid. 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 No active tobacco or alcohol use. SYSTEMS REVIEW: Neurologic: Positive for advanced multiple sclerosis with quadriparesis. Cardiac: Negative chest pain or palpitations. Respiratory: Negative cough or sputum production. Gastrointestinal: Negative vomiting or diarrhea. Genitourinary: Positive for recurrent urinary tract infections and neurogenic bladder. LABORATORY DATA: White count 19.6, hematocrit 26.3, platelet count 113, BUN 21, creatinine 0.7. Urinalysis: 537 white cells. Chest x-ray negative for acute infiltrate. Blood cultures pending. PHYSICAL EXAMINATION: General: The patient is awake but lethargic. Vital Signs: Temperature 98.9, blood pressure 67/34, pulse 81 and regular, respirations 18 per minute. HEENT: Sclerae anicteric. Heart: Sounds S1, S2. Decreased breath sounds bilaterally. Abdomen: Soft. No tenderness elicited. No mass, rebound, or rigidity. Extremities: Positive for edema. Indwelling Raza catheter in place with cloudy urine. IMPRESSION: 1. Sepsis/septic shock. 2. Urinary tract infection/sepsis secondary to urinary tract infection. 3. History of multidrug-resistant urinary tract pathogens. 4. History of multiple sclerosis, neurogenic bladder, and indwelling Raza catheter. Pending sepsis workup, empiric antibiotic coverage for presumed multidrug-resistant pathogens with Meropenem and vancomycin. Continue IV fluid hydration and pressors. ICU monitoring. Contact precautions. Prognosis guarded. Critical care time spent 35 minutes. MARGY MUÑIZ M.D. [id number]
[2016-05-05] MEDS ORDERED: MIDAZOLAM HCL 2 MG/2 ML SINGLE DOSE VIAL IVPUSH ONE (13:00)
--- NOTE | 2016-05-05 13:12 | PROC ---
Central Line Insertion Indication: CVP Monitoring, Vasopressor Risks and Benefits Explained: Yes Consent on Chart: Yes Central Line: Triple Lumen Catheter Anesthesia: 1% Lidocaine Sterile Technique: Yes Ultrasound Guided Assistance: Yes Position: Right Internal Jugular Post Insertion: Yes: Chest X-Ray Ordered Sterile Dressing Applied: Yes
[2016-05-05] MEDS ORDERED: NOREPINEPHRINE BITARTRATE 4 MG/4 ML ML IV ONE (13:35)
[2016-05-05] MEDS: NOREPINEPHRINE BITARTRATE 8,000 MCG in DEXTROSE 5%-WATER - 492 ML IV SCH (13:37)
[2016-05-05] MEDS: SILVER SULFADIAZINE 1% TOP CREAM 50 GM JAR TP SCH (13:55)
--- NOTE | 2016-05-05 14:21 | PN ---
Teaching Attending Note Name of Resident: Mickey Mandel ATTENDING PHYSICIAN STATEMENT I saw and evaluated the patient. I reviewed the resident's note and discussed the case with the resident. I agree with the resident's findings and plan as documented. SUBJECTIVE: Patient seen and examined in the ICU. Lethargic but arousable. Remains hypotensive despite Dopamine drip. AC Mode of vent. CXR: Increasing RLL opacification Intake & Output 05/02/16 05/03/16 05/04/16 05/05/16 23:59 23:59 23:59 23:59 Intake Total 3660 633 Output Total 270 1250 Balance 3390 -617 Weight 160 lb 0.008 oz 171 lb 5 oz Last Vital Signs Temp Pulse Resp BP Pulse Ox 99.3 F 85 14 88/32 108 H 05/05/16 12:00 05/05/16 13:37 05/05/16 12:03 05/05/16 13:37 05/05/16 09:30 Active Medications Acetaminophen (Tylenol -) 650 mg PO Q6H PRN PRN Reason: FEVER OR PAIN Albuterol/Ipratropium (Duoneb -) 1 amp NEB Q6HPO CATHERINE Last Admin: 05/05/16 12:06 Dose: 1 amp Carbamazepine (Tegretol -) 100 mg PO TIDCM CATHERINE Clonazepam (Klonopin -) 0.5 mg PO BID PRN PRN Reason: ANXIETY Hydrocortisone Sodium Succinate (Solu-Cortef -) 100 mg IVPB Q8H-IV CATHERINE Last Admin: 05/05/16 10:30 Dose: 100 mg Sodium Chloride (Normal Saline -) 1,000 mls @ 100 mls/hr IV ASDIR CATHERINE Last Admin: 05/05/16 13:25 Dose: 100 mls/hr Pantoprazole Sodium (Protonix 40mg Ivpb (Pre-Docked)) 100 mls @ 200 mls/hr IVPB BID CATHERINE Last Admin: 05/05/16 10:56 Dose: 200 mls/hr Meropenem 500 mg/ Dextrose 100 mls @ 200 mls/hr IVPB Q8H-IV CATHERINE Last Admin: 05/05/16 12:13 Dose: 200 mls/hr Norepinephrine Bitartrate 8, (000 mcg/ Dextrose) 500 mls @ 18.75 mls/hr IV TITR CATHERINE; 5 MCG/MIN PRN Reason: Protocol Last Admin: 05/05/16 13:37 Dose: 18.75 mls/hr Levothyroxine Sodium (Synthroid -) 88 mcg PO DAILY@0700 [facility] Mirtazapine (Remeron -) 7.5 mg PO HS [facility] Last Admin: 05/04/16 22:07 Dose: 7.5 mg Silver Sulfadiazine (Silvadene -) 1 applic TP DAILY [facility] Last Admin: 05/05/16 13:55 Dose: 1 applic Sodium Chloride (Normal Saline -) 720 ml IV Q20M PRN PRN Reason: MAP<65mm Hg OR SBP <90 Last Admin: 05/04/16 17:28 Dose: 720 ml Valacyclovir HCl (Valtrex -) 1,000 mg PO BID [facility] Last Admin: 05/04/16 22:07 Dose: 1,000 mg Vancomycin HCl (Vancomycin (Pre-Docked)) 1,000 mg IVPB BID [facility] Last Admin: 05/05/16 11:01 Dose: 1,000 mg Constitutional: Yes: Lethargic, vented Eyes: Yes: WNL, Other (sluggish pupillary response) HENT: Yes: WNL Neck: Yes: WNL Cardiovascular: Yes: S1, S2 Respiratory: Yes: Trached / Mechanically Ventilated, bibasilar Rhonchi Gastrointestinal: Yes: Normal Bowel Sounds, Soft, Abdomen, Obese. No: Tenderness ...Rectal Exam: Yes: Deferred Renal/: Yes: Raza Present (yellow output) Musculoskeletal: Yes: WNL Extremities: Yes: Cool Edema: Yes Edema: LLE: Trace, RLE: Trace Peripheral Pulses WNL: Yes (+1 bilateral pedal pulses) Integumentary: Yes: Other (trunk and upper thigh red raised patches, consistent with healing bilateral shingles+/- dermatitis) Wound/Incision: Yes: Other (tunneling sacral wound and to left buttocks) Neurological: Yes: Confusion, Lethargy Labs: Laboratory Results - last 24 hr 05/04/16 05/04/16 05/04/16 13:20 13:20 13:20 WBC RBC Hgb Hct MCV MCHC RDW Plt Count MPV Neutrophils % Lymphocytes % Monocytes % Eosinophils % Basophils % Band Neutrophils Metamyelocytes Platelet Estimate Platelet Comment Anisocytosis Macrocytosis INR PTT (Actin FS) Anticoagulation Therapy Puncture Site ABG pH ABG pCO2 at Pt Temp ABG pO2 at Pt Temp ABG HCO3 ABG O2 Sat (Measured) ABG O2 Content ABG Base Excess Howard Test VBG pH POC VBG pCO2 POC VBG pO2 Mixed VBG HCO3 O2 Delivery Device Oxygen Flow Rate Vent Mode Vent Rate Mechanical Rate PEEP Pressure Support Vent Sodium 127 L Potassium 4.5 Chloride 93 L Carbon Dioxide 19 L D Anion Gap 15 BUN 29 H D Creatinine 1.0 D Creat Clearance w eGFR 58.22 POC Glucometer Random Glucose 64 L D Lactic Acid 0.879 Calcium 8.2 L Phosphorus Magnesium Total Bilirubin 0.4 D AST 28 D ALT 35 D Alkaline Phosphatase 257 H D Creatine Kinase 56 Troponin I < 0.02 C-Reactive Protein B-Natriuretic Peptide Total Protein 5.4 L Albumin 2.0 L TSH Free T4 Urine Color Urine Appearance Urine pH Ur Specific [place] Urine Protein Urine Glucose (UA) Urine Ketones Urine Blood Urine Nitrite Urine Bilirubin Urine Urobilinogen Ur Leukocyte Esterase Urine RBC Urine WBC Ur Epithelial Cells Urine Bacteria Blood Type O POSITIVE Antibody Screen Negative Crossmatch See Detail 05/04/16 05/04/16 05/04/16 13:52 13:52 17:19 WBC RBC Hgb Hct MCV MCHC RDW Plt Count MPV Neutrophils % Lymphocytes % Monocytes % Eosinophils % Basophils % Band Neutrophils Metamyelocytes Platelet Estimate Platelet Comment Anisocytosis Macrocytosis INR PTT (Actin FS) Anticoagulation Therapy Puncture Site ABG pH ABG pCO2 at Pt Temp ABG pO2 at Pt Temp ABG HCO3 ABG O2 Sat (Measured) ABG O2 Content ABG Base Excess Howard Test VBG pH 7.28 L POC VBG pCO2 51.7 POC VBG pO2 53.4 H Mixed VBG HCO3 23.4 O2 Delivery Device Oxygen Flow Rate Vent Mode Vent Rate Mechanical Rate PEEP Pressure Support Vent Sodium Potassium Chloride Carbon Dioxide Anion Gap BUN Creatinine Creat Clearance w eGFR POC Glucometer 258.66625 Random Glucose Lactic Acid Calcium Phosphorus Magnesium Total Bilirubin AST ALT Alkaline Phosphatase Creatine Kinase Troponin I C-Reactive Protein B-Natriuretic Peptide Total Protein Albumin TSH Free T4 Urine Color Yellow Urine Appearance Turbid Urine pH 5.0 Ur Specific [place] 1.016 Urine Protein 2+ H Urine Glucose (UA) 1+ H Urine Ketones Negative Urine Blood Negative Urine Nitrite Negative Urine Bilirubin Negative Urine Urobilinogen Negative Ur Leukocyte Esterase 3+ H Urine RBC 15 Urine WBC 537 Ur Epithelial Cells Rare Urine Bacteria Many Blood Type Antibody Screen Crossmatch 02/28/17 02/28/17 02/28/17 02:00 02:00 02:00 WBC 26.5 H D RBC 3.04 L Hgb 9.7 L D Hct 29.2 L MCV 96.1 H MCHC 33.2 RDW 18.1 H Plt Count 124 L D MPV 9.8 D Neutrophils % 67.0 D Lymphocytes % 1.0 L D Monocytes % 4.0 D Eosinophils % Auto Design Detailer Basophils % Auto [employer] Detailer Band Neutrophils 27.0 H D Metamyelocytes 1 Platelet Estimate Adequate Platelet Comment Few large plts Anisocytosis 2+ Macrocytosis 2+ INR 1.06 PTT (Actin FS) 36.6 H Anticoagulation Therapy Y Puncture Site Left radial ABG pH 7.34 L ABG pCO2 at Pt Temp 42.8 ABG pO2 at Pt Temp 79.9 L ABG HCO3 22.3 ABG O2 Sat (Measured) 95.5 ABG O2 Content 13.0 L ABG Base Excess -2.8 L Howard Test Positive VBG pH POC VBG pCO2 POC VBG pO2 Mixed VBG HCO3 O2 Delivery Device Vent Oxygen Flow Rate 50 Vent Mode A/c Vent Rate 14 Mechanical Rate Yes PEEP 5.0 Pressure Support Vent 450 Sodium Potassium Chloride Carbon Dioxide Anion Gap BUN Creatinine Creat Clearance w eGFR POC Glucometer Random Glucose Lactic Acid Calcium Phosphorus Magnesium Total Bilirubin AST ALT Alkaline Phosphatase Creatine Kinase Troponin I C-Reactive Protein B-Natriuretic Peptide Total Protein Albumin TSH Free T4 Urine Color Urine Appearance Urine pH Ur Specific [place] Urine Protein Urine Glucose (UA) Urine Ketones Urine Blood Urine Nitrite Urine Bilirubin Urine Urobilinogen Ur Leukocyte Esterase Urine RBC Urine WBC Ur Epithelial Cells Urine Bacteria Blood Type Antibody Screen Crossmatch 05/05/16 05/05/16 05/05/16 02:00 02:00 02:00 WBC RBC Hgb Hct MCV MCHC RDW Plt Count MPV Neutrophils % Lymphocytes % Monocytes % Eosinophils % Basophils % Band Neutrophils Metamyelocytes Platelet Estimate Platelet Comment Anisocytosis Macrocytosis INR PTT (Actin FS) Anticoagulation Therapy Puncture Site ABG pH ABG pCO2 at Pt Temp ABG pO2 at Pt Temp ABG HCO3 ABG O2 Sat (Measured) ABG O2 Content ABG Base Excess Howard Test VBG pH POC VBG pCO2 POC VBG pO2 Mixed VBG HCO3 O2 Delivery Device Oxygen Flow Rate Vent Mode Vent Rate Mechanical Rate PEEP Pressure Support Vent Sodium 126 L Potassium 5.0 Chloride 92 L Carbon Dioxide 24 D Anion Gap 10 BUN 26 H Creatinine 1.0 Creat Clearance w eGFR 58.22 POC Glucometer Random Glucose 71 L Lactic Acid 0.739 Calcium 8.6 Phosphorus 3.7 Magnesium 2.2 Total Bilirubin 0.3 D AST 55 H D ALT 54 D Alkaline Phosphatase 316 H D Creatine Kinase 46 Troponin I < 0.02 C-Reactive Protein B-Natriuretic Peptide 1430.54 H Total Protein 6.0 L Albumin 2.1 L TSH Free T4 Urine Color Urine Appearance Urine pH Ur Specific [place] Urine Protein Urine Glucose (UA) Urine Ketones Urine Blood Urine Nitrite Urine Bilirubin Urine Urobilinogen Ur Leukocyte Esterase Urine RBC Urine WBC Ur Epithelial Cells Urine Bacteria Blood Type Antibody Screen Crossmatch 05/05/16 05/05/16 05/05/16 05:10 05:10 08:10 WBC 13.4 H D RBC 1.83 L D Hgb 5.7 L* D Hct 17.7 L D MCV 96.6 H MCHC 32.3 RDW 17.8 H Plt Count 81 L D MPV 9.7 Neutrophils % Lymphocytes % Monocytes % Eosinophils % Basophils % Band Neutrophils Metamyelocytes Platelet Estimate Platelet Comment Anisocytosis Macrocytosis INR PTT (Actin FS) Anticoagulation Therapy Puncture Site ABG pH ABG pCO2 at Pt Temp ABG pO2 at Pt Temp ABG HCO3 ABG O2 Sat (Measured) ABG O2 Content ABG Base Excess Howard Test VBG pH POC VBG pCO2 POC VBG pO2 Mixed VBG HCO3 O2 Delivery Device Oxygen Flow Rate Vent Mode Vent Rate Mechanical Rate PEEP Pressure Support Vent Sodium 137 Potassium 3.9 D Chloride 108 H D Carbon Dioxide 21 Anion Gap 8 BUN 21 H Creatinine 0.7 D Creat Clearance w eGFR > 60 POC Glucometer Random Glucose 33 L* D Lactic Acid 1.243 Calcium 5.9 L* D Phosphorus Magnesium Total Bilirubin 0.2 D AST 30 D ALT 35 D Alkaline Phosphatase 199 H D Creatine Kinase Troponin I C-Reactive Protein 18.2 H D B-Natriuretic Peptide Total Protein 3.7 L D Albumin 1.3 L D TSH 0.57 D Free T4 1.18 D Urine Color Urine Appearance Urine pH Ur Specific [place] Urine Protein Urine Glucose (UA) Urine Ketones Urine Blood Urine Nitrite Urine Bilirubin Urine Urobilinogen Ur Leukocyte Esterase Urine RBC Urine WBC Ur Epithelial Cells Urine Bacteria Blood Type Antibody Screen Crossmatch 05/05/16 05/05/16 05/05/16 08:10 08:10 08:10 WBC 19.6 H D RBC 2.73 L D Hgb 8.6 L D Hct 26.3 L D MCV 96.3 H MCHC 32.7 RDW 18.0 H Plt Count 113 L D MPV 8.8 Neutrophils % Lymphocytes % Monocytes % Eosinophils % Basophils % Band Neutrophils Metamyelocytes Platelet Estimate Platelet Comment Anisocytosis Macrocytosis INR 1.22 H PTT (Actin FS) 39.5 H Anticoagulation Therapy Puncture Site ABG pH ABG pCO2 at Pt Temp ABG pO2 at Pt Temp ABG HCO3 ABG O2 Sat (Measured) ABG O2 Content ABG Base Excess Howard Test VBG pH POC VBG pCO2 POC VBG pO2 Mixed VBG HCO3 O2 Delivery Device Oxygen Flow Rate Vent Mode Vent Rate Mechanical Rate PEEP Pressure Support Vent Sodium Potassium Chloride Carbon Dioxide Anion Gap BUN Creatinine Creat Clearance w eGFR POC Glucometer Random Glucose Lactic Acid Calcium Phosphorus Magnesium Total Bilirubin AST ALT Alkaline Phosphatase Creatine Kinase Troponin I C-Reactive Protein B-Natriuretic Peptide Total Protein Albumin TSH Free T4 Urine Color Urine Appearance Urine pH Ur Specific [place] Urine Protein Urine Glucose (UA) Urine Ketones Urine Blood Urine Nitrite Urine Bilirubin Urine Urobilinogen Ur Leukocyte Esterase Urine RBC Urine WBC Ur Epithelial Cells Urine Bacteria Blood Type O POSITIVE Antibody Screen Negative Crossmatch See Detail Assessment/Plan Septic Shock Suspected RLL PNA R/O UTI (?) Component of Autonomic dysfunction causing hypotension (?) Baclofen effect MS with quadraplegia Acute on Chronic respiratory failure / trach and nocturnal vent dependence Seizure disorder Hypothyroidism MDR infections (UTI, sacral wound) AC Mode of vent CVC inserted NE for BP support Broad ABX per ID PO as tolerated -> If intake is poor -> May need NGT Aspiration precautions VTE prophylaxis BD TX Measure CVP IVF Dr Fox CCTime 35"
--- NOTE | 2016-05-05 15:24 | EKG ---
Test Reason : Blood Pressure : / mmHG Vent. Rate : 050 BPM Atrial Rate : 300 BPM P-R Int : 000 ms QRS Dur : 110 ms QT Int : 456 ms P-R-T Axes : 000 047 043 degrees QTc Int : 415 ms MARKED SINUS BRADYCARDIA ABNORMAL ECG WHEN COMPARED WITH ECG OF 27-FEB-2016 15:52, VENT. RATE HAS DECREASED BY 25 BPM Confirmed by FLORENCIO DIETRICH MD ([id number]) on 05/05/2016 3:23:27 PM Referred By: Confirmed By:FLORENCIO DIETRICH MD
--- NOTE | 2016-05-05 15:30 | PN ---
Physical Exam: SUBJECTIVE: Patient seen and examined at bedside in the ICU. She's on trach and vent, opens eyes and track objects but does not follow command. Per family, patient is able to talk and eat at baseline. OBJECTIVE: Trached on mechanical ventilation Vent settings: AC, RR 14, TV 450, FiO2 40, PEEP 5 On levophed 6 mcg Central line (triple lumen, IJ) placed, day 1 Vital Signs Period Temp Pulse Resp BP Sys/Morillo Pulse Ox Last 24 Hr 89.5 F-99.5 F 40-108 8-19 47-155/24-76 93-108 GENERAL: The patient is awake, alert, but not oriented. EYES: sclera anicteric LUNGS: decreased breath sounds and b/l rhonchi HEART: Regular rate and rhythm, S1, S2 without murmur, rub or gallop ABDOMEN: Soft, nontender, nondistended, normoactive bowel sounds EXTREMITIES: no edema (sacral ulcers exam not performed) : perera in place ABG Results ABG pH 7.34 (7.35-7.45) L 05/05/16 02:00 ABG pCO2 at Pt Temp 42.8 mmHg (35-45) 05/05/16 02:00 ABG pO2 at Pt Temp 79.9 mmHg (80-100) L 05/05/16 02:00 ABG HCO3 22.3 meq/L (22-26) 05/05/16 02:00 ABG O2 Sat (Measured) 95.5 % (90-98.9) 05/05/16 02:00 ABG O2 Content 13.0 % vol (15-22) L 05/05/16 02:00 ABG Base Excess -2.8 meq/l (-2-2) L 05/05/16 02:00 CBCD WBC 19.6 K/mm3 (4.0-10.0) H D 05/05/16 08:10 RBC 2.73 M/mm3 (3.60-5.2) L D 05/05/16 08:10 Hgb 8.6 GM/dL (10.7-15.3) L D 05/05/16 08:10 Hct 26.3 % (32.4-45.2) L D 05/05/16 08:10 MCV 96.3 fl (80-96) H 05/05/16 08:10 MCHC 32.7 g/dl (32.0-36.0) 05/05/16 08:10 RDW 18.0 % (11.6-15.6) H 05/05/16 08:10 Plt Count 113 K/MM3 (134-434) L D 05/05/16 08:10 MPV 8.8 fl (7.5-11.1) 05/05/16 08:10 CMP Sodium 137 mmol/L (136-145) 05/05/16 05:10 Potassium 3.9 mmol/L (3.5-5.1) D 05/05/16 05:10 Chloride 108 mmol/L (98-107) H D 05/05/16 05:10 Carbon Dioxide 21 mmol/L (21-32) 05/05/16 05:10 Anion Gap 8 (8-16) 05/05/16 05:10 BUN 21 mg/dL (7-18) H 05/05/16 05:10 Creatinine 0.7 mg/dL (0.55-1.02) D 05/05/16 05:10 Creat Clearance w eGFR > 60 (>60) 05/05/16 05:10 Calcium 5.9 mg/dL (8.5-10.1) L* D 05/05/16 05:10 Total Bilirubin 0.2 mg/dL (0.2-1.0) D 05/05/16 05:10 AST 30 U/L (15-37) D 05/05/16 05:10 ALT 35 U/L (12-78) D 05/05/16 05:10 Alkaline Phosphatase 199 U/L (45-117) H D 05/05/16 05:10 Total Protein 3.7 g/dl (6.4-8.2) L D 05/05/16 05:10 Albumin 1.3 g/dl (3.4-5.0) L D 05/05/16 05:10 Intake & Output 05/02/16 05/03/16 05/04/16 05/05/16 23:59 23:59 23:59 23:59 Intake Total 3660 633 Output Total 270 1250 Balance 3390 -617 Weight 72.575 kg 77.706 kg Urine Test Results Urine Color Yellow 05/04/16 13:52 Urine Appearance Turbid 05/04/16 13:52 Urine pH 5.0 (5.0-8.0) 05/04/16 13:52 Ur Specific [place] 1.016 (1.001-1.035) 05/04/16 13:52 Urine Protein 2+ (NEGATIVE) H 05/04/16 13:52 Urine Glucose (UA) 1+ (NEGATIVE) H 05/04/16 13:52 Urine Ketones Negative (NEGATIVE) 05/04/16 13:52 Urine Blood Negative (NEGATIVE) 05/04/16 13:52 Urine Nitrite Negative (NEGATIVE) 05/04/16 13:52 Urine Bilirubin Negative (NEGATIVE) 05/04/16 13:52 Ur Leukocyte Esterase 3+ (NEGATIVE) H 05/04/16 13:52 Urine RBC 15 /hpf (0-3) 05/04/16 13:52 Urine WBC 537 /hpf (3-5) 05/04/16 13:52 Ur Epithelial Cells Rare /hpf (FEW) 05/04/16 13:52 Urine Bacteria Many /hpf (NONE SEEN) 05/04/16 13:52 Active Medications Generic Name Dose Route Start Last Admin Trade Name Freq PRN Reason Stop Dose Admin Acetaminophen 650 mg 05/04/16 21:42 Tylenol - PO Q6H PRN FEVER OR PAIN Albuterol/Ipratropium 1 amp 05/05/16 12:00 05/05/16 12:06 Duoneb - NEB 1 amp Q6HPO CATHERINE Administration Carbamazepine 100 mg 05/05/16 08:00 Tegretol - PO TIDCM CATHERINE Clonazepam 0.5 mg 05/04/16 21:41 Klonopin - PO BID PRN ANXIETY Hydrocortisone Sodium Succinate 100 mg 05/05/16 10:00 05/05/16 10:30 Solu-Cortef - IVPB 100 mg Q8H-IV CATHERINE Administration Sodium Chloride 1,000 mls @ 100 mls/hr 05/05/16 02:30 05/05/16 13:25 Normal Saline - IV 100 mls/hr ASDIR CATHERINE Administration Pantoprazole Sodium 100 mls @ 200 mls/hr 05/05/16 10:00 05/05/16 10:56 Protonix 40mg Ivpb (Pre-Docked) IVPB 200 mls/hr BID CATHERINE Administration Meropenem 500 mg/ Dextrose 100 mls @ 200 mls/hr 05/05/16 11:00 05/05/16 12:13 IVPB 200 mls/hr Q8H-IV CATHERINE Administration Norepinephrine Bitartrate 8, 500 mls @ 18.75 mls/hr 05/05/16 13:00 05/05/16 13: 37 000 mcg/ Dextrose IV 18.75 mls/hr TITR CATHERINE Administration Protocol 5 MCG/MIN Levothyroxine Sodium 88 mcg 05/05/16 07:00 Synthroid - PO DAILY@0700 CATHERINE Mirtazapine 7.5 mg 05/04/16 22:00 05/04/16 22:07 Remeron - PO 7.5 mg HS CATHERINE Administration Silver Sulfadiazine 1 applic 05/05/16 11:45 05/05/16 13:55 Silvadene - TP 1 applic DAILY CATHERINE Administration Sodium Chloride 720 ml 05/04/16 12:07 05/04/16 17:28 Normal Saline - IV 720 ml Q20M PRN Administration MAP<65mm Hg OR SBP <90 Valacyclovir HCl 1,000 mg 05/04/16 22:00 05/04/16 22:07 Valtrex - PO 1,000 mg BID CATHERINE Administration Vancomycin HCl 1,000 mg 05/05/16 10:15 05/05/16 11:01 Vancomycin (Pre-Docked) IVPB 1,000 mg BID CATHERINE Administration Microbiology 05/05/16 02:00 Urine For Antigen Detection Legionella Antigen - Final 05/05/16 02:00 Urine For Antigen Detection Streptococcus pneumoniae Antigen (M - Final 05/05/16 02:00 Nasopharyngeal Swab Respiratory Virus Panel - Preliminary 05/04/16 13:15 Blood - Peripheral Venous Blood Culture - Preliminary NO GROWTH OBTAINED AFTER 24 HOURS, INCUBATION TO CONTINUE FOR 4 DAYS. 05/04/16 13:20 Blood - Peripheral Venous Blood Culture - Preliminary NO GROWTH OBTAINED AFTER 24 HOURS, INCUBATION TO CONTINUE FOR 4 DAYS. 05/04/16 13:52 Urine - Urine - Catheterized Urine Culture - Final Contaminated: Please Repeat 05/05/16 02:00 Nasopharyngeal Swab Influenza Types A,B Antigen (DARON) - Final 05/05/16 02:00 Nasopharyngeal Swab - Final Imaging: CXR 05/05: A single frontal portable projection of the chest at 12:56 PM is submitted. Since a prior study of earlier in the day, a right-sided triple- lumen catheter has been placed via the internal jugular vein with distal tip in the region of the SVC. No pneumothorax is identified. A tracheostomy tube remains in place. Bilateral pleural effusions are also reidentified. Right- sided triple-lumen catheter placement as described above ASSESSMENT/PLAN: 51 yo F h/o HTN, multiple sclerosis with quadraplegia, chronic urinary retention and chronic respiratory insufficiency, seizure disorder and hypothyroidism admitted to the ICU for baclofen toxicity vs. sepsis 2/2 UTI. Patient is trached and on venti-mask during the day and on vent at night. She had multiple admissions for MDR infections such as UTI and decubitus ulcer in the sacral. Neuro: AMS 2/2 baclofen toxicity vs. UTI - Baseline: AAO x 3, talks, eats - Slowly returning to baseline as of 3:40PM - Baclofen toxicity more likely - Pending baclofen level - Cont. AED and zolof - Neuro check Q2H Pulm: Chronic respiratory insufficiency 2/2 ?MS - Trached on vent: see settings above - Maintain O2 Sat. > 88% - Nebulizers PRN - Daily ABG and CXR ID: Sepsis 2/2 UTI, Complicated vs Sacral decubitus ulcers - Came with indwelling perera catheter - H/O MDR infections: UTI, PNA, shingles - WBC 537 on UA, elevated WBC on CBC, remain afrebile - Wound consult for decubitus ulcers - Lactic acid normalized - Pending final cultures - On Meropenem and Vancomycin Renal/: UTI in the setting of chronic urinary retention - Cont. hydration - Maintain perera for urinary retention - Cont. to monitor lytes Heme: Macrocytic Anemia - Baseline HGB @ 8.6-10 - Transfuse if < 7 Cardiac: Hypotension - On levophed, maintain MAP > 65% - Hold all anti-BP meds Endo: Hypothyrodism and adrenal insufficiency - Normal TSH and free T4 - Cont. synthroid - F/U on cortisol level FEN - On NS 100ml/hr - low calcium, repleted with Ca gluconate, cont. to monitor - Soft diet as tolerated - Prophylaxis - DVT: lovenox 40mg QD - GI: on PPI Disposition - Continues to require inpatient ICU care Code status - Full code Visit type - Emergency Visit Emergency Visit: No - New Patient This patient is new to me today: Yes Date on this admission: 05/05/16 - Critical Care Critical Care patient: Yes Total Critical Care Time (in minutes): 45 Critical Care Statement: The care of this patient involved high complexity decision making to prevent further life threatening deterioration of the patient 's condition and/or to evalute & treat vital organ system(s) failure or risk of failure.
[2016-05-05] MEDS: carBAMazepine 100 MG TAB.CHEW PO SCH ×3 (16:00→19:09)
[2016-05-05] MEDS: valACYclovir HCL 1000 MG TABLET PO SCH ×2 (16:00→22:07)
[2016-05-05] MEDS: ENOXAPARIN NA (PORCINE) 40 MG/0.4 ML DISP.SYRIN SQ SCH (17:29)
[2016-05-05] MEDS ORDERED: HEMOQUE TEST 1 EACH EACH ONE (17:36)
--- NOTE | 2016-05-05 18:35 | CONSULT ---
Consult - text type - Consultation Consultation Note: Renal Consult for Hyponatremia 51 year old woman with PMHx of Multiple Sclerosis, Chronic Resp Failure with Trach Collar, Hx of recurrent UTI, Periods of hyponatremia presented with AMS/ Lethargy and found to have Sepsis with Hypotension and Na of 126. Pt was started on aggressive IVF expansion for Sepsis and Na improved to 137. Pt curntly in the ICU on pressers. On Trach collar O2. Family at the bedside. PMhx: as per HPI Allergies: as per EMR Family Hx: NC Social Hx: No T/A/D ROS: unable to obtain because of clinical status Home Meds: Home Medications Medication Instructions Recorded Carbamazepine [Tegretol -] 100 mg PO TID tab.chew 08/27/14 Albuterol 0.083% Nebulizer Rocio 1 neb NEB Q4H PRN #0 amp 10/26/14 [Ventolin 0.083% Nebulizer Soln -] Clonazepam [Klonopin] 0.5 mg PO DAILY 05/08/15 Hydralazine HCl [Apresoline -] 25 mg PO TID tablet 12/08/15 Amlodipine Besylate [Norvasc -] 10 mg PO HS 02/06/16 Baclofen 5 mg PO DAILY 02/06/16 Mirtazapine 7.5 mg PO DAILY 02/06/16 Pantoprazole Sodium [Protonix] 40 mg PO DAILY 02/06/16 Potassium Chloride 20 meq PO DAILY 02/06/16 Sertraline HCl [Zoloft -] 25 mg PO TID 02/06/16 Levothyroxine [Synthroid -] 88 mcg PO DAILY@0700 #30 tablet 02/14/16 Valacyclovir HCl [Valtrex -] 1,000 mg PO TID #20 tablet 04/03/16 Vital Signs Temperature 97.6 F 05/05/16 17:31 Pulse Rate 112 H 05/05/16 17:31 Respiratory Rate 21 05/05/16 17:31 Blood Pressure 125/42 05/05/16 17:31 O2 Sat by Pulse Oximetry (%) 99 05/05/16 16:24 Intake & Output 05/02/16 05/03/16 05/04/16 05/05/16 23:59 23:59 23:59 23:59 Intake Total 3660 633 Output Total 270 2080 Balance 3390 -1447 Weight 160 lb 0.008 oz 171 lb 5 oz Gen: Awake on Trach Collar HEENT: Trach in place, no JVD CVS: RRR, No M/R Lungs: Dec BS left lung Abd: Soft NT/ND Ext: no edema, clubbing or cyanosis : perera in place CBC, BMP 05/05/16 08:10 05/05/16 05:10 Current Medications Acetaminophen (Tylenol -) 650 mg PO Q6H PRN PRN Reason: FEVER OR PAIN Albuterol/Ipratropium (Duoneb -) 1 amp NEB Q6HPO CATHERINE Last Admin: 05/05/16 17:00 Dose: 1 amp Carbamazepine (Tegretol -) 100 mg PO TIDCM CATHERINE Last Admin: 05/05/16 16:00 Dose: 100 mg Clonazepam (Klonopin -) 0.5 mg PO BID PRN PRN Reason: ANXIETY Enoxaparin Sodium (Lovenox -) 40 mg SQ DAILY [facility] Last Admin: 05/05/16 17:29 Dose: 40 mg Hydrocortisone Sodium Succinate (Solu-Cortef -) 100 mg IVPB Q8H-IV CATHERINE Last Admin: 05/05/16 17:06 Dose: 100 mg Sodium Chloride (Normal Saline -) 1,000 mls @ 100 mls/hr IV ASDIR CATHERINE Last Admin: 05/05/16 13:25 Dose: 100 mls/hr Pantoprazole Sodium (Protonix 40mg Ivpb (Pre-Docked)) 100 mls @ 200 mls/hr IVPB BID CATHERINE Last Admin: 05/05/16 10:56 Dose: 200 mls/hr Meropenem 500 mg/ Dextrose 100 mls @ 200 mls/hr IVPB Q8H-IV CATHERINE Last Admin: 05/05/16 17:06 Dose: 200 mls/hr Norepinephrine Bitartrate 8, (000 mcg/ Dextrose) 500 mls @ 18.75 mls/hr IV TITR CATHERINE; 5 MCG/MIN PRN Reason: Protocol Last Titration: 05/05/16 17:04 Dose: 0 mcg/min Levothyroxine Sodium (Synthroid -) 88 mcg PO DAILY@0700 [facility] Last Admin: 05/05/16 15:59 Dose: 88 mcg Mirtazapine (Remeron -) 7.5 mg PO HS [facility] Last Admin: 05/04/16 22:07 Dose: 7.5 mg Silver Sulfadiazine (Silvadene -) 1 applic TP DAILY [facility] Last Admin: 05/05/16 13:55 Dose: 1 applic Sodium Chloride (Normal Saline -) 720 ml IV Q20M PRN PRN Reason: MAP<65mm Hg OR SBP <90 Last Admin: 05/04/16 17:28 Dose: 720 ml Valacyclovir HCl (Valtrex -) 1,000 mg PO BID [facility] Last Admin: 05/05/16 16:00 Dose: 1,000 mg Vancomycin HCl (Vancomycin (Pre-Docked)) 1,000 mg IVPB BID [facility] Last Admin: 05/05/16 11:01 Dose: 1,000 mg A/P 51 year old woman with PMHx of Multiple Sclerosis, Chronic Resp Failure with Trach Collar, Hx of recurrent UTI, Periods of hyponatremia presented with AMS/ Lethargy and found to have Sepsis with Hypotension and Na of 126. #Acute on Chronic Hyponatremia Appears that etiology was hypovolemic hyponatremia in setting of sepsis Serum na improved with aggressive IVF expansion for sepsis no indication to re-lower Na because of rapid improvement given clinical picture of sepsis and importance of maintaining volume and BP Trend Na Daily Check AM Cortisol #Sepsis secondary to UTI Continue Empiric Abx as per ID IVF to keep CVP > 10 keep MAP > 65 Pressers as needed ICU monitoring #MS supportive care #Recent Zoster infection on Valcyclovir IV maintain aggressive IVF expansion while on IV Valcyclovir #Anemia Trend CBC Transfuse as per ICU protocol Thank you Will follow Tyshawn Doe DO
[2016-05-05] MEDS: MIRTAZAPINE 15 MG TABLET (FP) PO SCH (21:59)
[2016-05-05] MEDS ORDERED: valACYclovir HCL 500 MG TABLET (FP) PO SCH (22:15)
[2016-05-05] MEDS ORDERED: ALBUTEROL SO4 2.5/IPRATROPIUM 0.5 INH SOL 3 ML VIAL.NEB. NEB ONE (22:42)
[2016-05-05] MEDS ORDERED: FUROSEMIDE 40 MG/4 ML INJECTABLE VIAL IVPUSH ONE (23:14)
[2016-05-05] MEDS ORDERED: FUROSEMIDE 40 MG/4 ML INJECTABLE VIAL ONE (23:15)
[2016-05-06] MEDS: MEROPENEM 500 MG in DEXTROSE 5%-WATER - 100 ML IVPB SCH ×3 (02:39→17:33)
[2016-05-06] MEDS: HYDROCORTISONE SOD SUCCINATE 100 MG/2 ML VIAL IVPB SCH ×3 (02:40→17:34)
[2016-05-06] MEDS: NOREPINEPHRINE BITARTRATE 8,000 MCG in DEXTROSE 5%-WATER - 492 ML IV SCH ×2 (04:30→17:24)
[2016-05-06 05:31] LABS: MCH 31.8 pg (25.7-33.7); MCHC 33.3 g/dl (32.0-36.0); MEAN CELL VOLUME 95.4 fl (80-96); MEAN PLT VOLUME 9.5 fl (7.5-11.1); PLATELET COUNT 141 K/MM3 (134-434); RDW 18.2 % (11.6-15.6); WHITE BLOOD COUNT 22.9 K/mm3 (4.0-10.0)
[2016-05-06 05:44] LABS: CALCIUM 8.5 mg/dL (8.5-10.1); CREATININE 0.9 mg/dL (0.55-1.02); MAGNESIUM 2.1 mg/dL (1.8-2.4); PHOSPHOROUS 3.9 mg/dL (2.5-4.9)
[2016-05-06] MEDS: ALBUTEROL SO4 2.5/IPRATROPIUM 0.5 INH SOL 3 ML VIAL.NEB. NEB SCH ×3 (06:09→18:02)
--- NOTE | 2016-05-06 07:02 | PN ---
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, Physician Chief Complaint: ID ID critical care follow up for this 51 year old female well known to our service as she has had multiple admissions for urinary tract infections over time. Patient has multiple sclerosis and is chronic trach care and chronic indwelling perera. Recent Mar admission for Herpes Zoster. Now here with altered mental status profound hypothermia and hypotension now on Levophed 3ug. Seen by Dr heart yesterday and empirically treted with Meropenem and Vancomycin day 1 therapy. Appears comfortable now sleeping. - Current Medication List Current Medications: Active Medications Acetaminophen (Tylenol -) 650 mg PO Q6H PRN PRN Reason: FEVER OR PAIN Albuterol/Ipratropium (Duoneb -) 1 amp NEB Q6HPO [facility] Last Admin: 05/06/16 06:09 Dose: 1 amp Carbamazepine (Tegretol -) 100 mg PO TIDCM [facility] Last Admin: 05/05/16 19:09 Dose: Not Given Clonazepam (Klonopin -) 0.5 mg PO BID PRN PRN Reason: ANXIETY Enoxaparin Sodium (Lovenox -) 40 mg SQ DAILY [facility] Last Admin: 05/05/16 17:29 Dose: 40 mg Hydrocortisone Sodium Succinate (Solu-Cortef -) 100 mg IVPB Q8H-IV [facility] Last Admin: 05/06/16 02:40 Dose: 100 mg Sodium Chloride (Normal Saline -) 1,000 mls @ 100 mls/hr IV ASDIR [facility] Last Admin: 05/05/16 13:25 Dose: 100 mls/hr Pantoprazole Sodium (Protonix 40mg Ivpb (Pre-Docked)) 100 mls @ 200 mls/hr IVPB BID [facility] Last Admin: 05/05/16 21:59 Dose: 200 mls/hr Meropenem 500 mg/ Dextrose 100 mls @ 200 mls/hr IVPB Q8H-IV [facility] Last Admin: 05/06/16 02:39 Dose: 200 mls/hr Norepinephrine Bitartrate 8, (000 mcg/ Dextrose) 500 mls @ 18.75 mls/hr IV TITR CATHERINE; 5 MCG/MIN PRN Reason: Protocol Last Titration: 05/05/16 17:04 Dose: 0 mcg/min Levothyroxine Sodium (Synthroid -) 88 mcg PO DAILY@0700 [facility] Last Admin: 05/05/16 15:59 Dose: 88 mcg Levothyroxine Sodium (Synthroid Injection -) 44 mcg IVPUSH DAILY [facility] Mirtazapine (Remeron -) 7.5 mg PO HS [facility] Last Admin: 05/05/16 21:59 Dose: 7.5 mg Silver Sulfadiazine (Silvadene -) 1 applic TP DAILY [facility] Last Admin: 05/05/16 13:55 Dose: 1 applic Sodium Chloride (Normal Saline -) 720 ml IV Q20M PRN PRN Reason: MAP<65mm Hg OR SBP <90 Last Admin: 05/04/16 17:28 Dose: 720 ml Valacyclovir HCl (Valtrex -) 1,000 mg PO BID [facility] Last Admin: 05/05/16 22:08 Dose: Not Given Vancomycin HCl (Vancomycin (Pre-Docked)) 1,000 mg IVPB BID [facility] Last Admin: 05/05/16 21:59 Dose: 1,000 mg - Objective Vital Signs: Vital Signs Temperature 98 F 05/06/16 06:30 Pulse Rate 95 H 05/06/16 06:30 Respiratory Rate 16 05/06/16 06:49 Blood Pressure 84/52 05/06/16 06:30 O2 Sat by Pulse Oximetry (%) 94 L 05/05/16 22:00 Constitutional: Yes: Well Nourished, No Distress Eyes: Yes: WNL, Conjunctiva Clear HENT: Yes: WNL, Atraumatic Neck: Yes: WNL, Supple, Other (Central line Tracheostomy) Cardiovascular: Yes: Regular Rate and Rhythm, S1, S2. No: Murmur, Rub Respiratory: Yes: WNL, Regular, CTA Bilaterally, Rhonchi. No: Rales, Stridor Gastrointestinal: Yes: WNL, Normal Bowel Sounds, Soft. No: Splenomegaly, Tenderness, Tenderness, Rebound Extremities: No: Cold, Cool, Cyanosis Edema: No Labs: CBC, BMP 05/06/16 05:00 05/06/16 05:00 INR, PTT INR 1.22 (0.82-1.09) H 05/05/16 08:10 Problem List - Problems (1) Sepsis syndrome Code(s): LQI4902 - (2) Urinary tract infection Code(s): N39.0 - URINARY TRACT INFECTION, SITE NOT SPECIFIED (3) Multiple sclerosis Code(s): G35 - MULTIPLE SCLEROSIS (4) Respiratory failure Code(s): J96.90 - RESPIRATORY FAILURE, UNSP, UNSP W HYPOXIA OR HYPERCAPNIA (5) Multiple drug resistant organism (MDRO) culture positive Code(s): Z16.24 - RESISTANCE TO MULTIPLE ANTIBIOTICS Assessment/Plan Microbiology 05/05/16 02:00 Urine For Antigen Detection Legionella Antigen - Final 05/05/16 02:00 Urine For Antigen Detection Streptococcus pneumoniae Antigen (M - Final 05/04/16 13:52 Urine - Urine - Catheterized Urine Culture - Final Contaminated: Please Repeat 03/28/16 20:20 Urine - Urine Perera Urine Culture - Final Enterobacter Cloacae 05/04/16 13:20 Blood - Peripheral Venous Blood Culture - Preliminary NO GROWTH OBTAINED AFTER 24 HOURS, INCUBATION TO CONTINUE FOR 4 DAYS. 05/04/16 13:15 Blood - Peripheral Venous Blood Culture - Preliminary NO GROWTH OBTAINED AFTER 24 HOURS, INCUBATION TO CONTINUE FOR 4 DAYS. Laboratory Tests 05/04/16 05/04/16 05/05/16 13:20 13:52 02:00 WBC Hgb Hct Plt Count INR ABG pH 7.34 L ABG pCO2 at Pt Temp 42.8 ABG pO2 at Pt Temp 79.9 L Sodium Potassium BUN Creatinine Lactic Acid 0.879 Urine Urobilinogen Negative Ur Leukocyte Esterase 3+ H Urine WBC 537 Urine Bacteria Many 05/05/16 05/05/16 05/05/16 02:00 08:10 08:10 WBC Hgb Hct Plt Count INR 1.22 H ABG pH ABG pCO2 at Pt Temp ABG pO2 at Pt Temp Sodium Potassium BUN Creatinine Lactic Acid 0.739 1.243 Urine Urobilinogen Ur Leukocyte Esterase Urine WBC Urine Bacteria 05/06/16 05/06/16 05:00 05:00 WBC 22.9 H Hgb 9.4 L Hct 28.3 L Plt Count 141 D INR ABG pH ABG pCO2 at Pt Temp ABG pO2 at Pt Temp Sodium 128 L Potassium 4.7 D BUN 21 H Creatinine 0.9 D Lactic Acid Urine Urobilinogen Ur Leukocyte Esterase Urine WBC Urine Bacteria Assessment Sepsis syndrome urinary tract source History of resistant organisms in the urine Respiratory failure Possible pneumonia lower lobe infiltrates ? Multiple sclerosis Altered mental status possible metabolic encephalopathy Recent shingles in March Plan Continue Vancomycin and Meropenem Send sputum culture Give a dose of Gentamicin Stop Valtrex 38 minutes of critical care review offered reviewing chart examining pt and making complex medical decisions Anam PATIÑO
[2016-05-06] MEDS ORDERED: GENTAMICIN INJECTION 350 MG in SODIUM CHLORIDE 100 ML IVPB ONE (07:08)
--- NOTE | 2016-05-06 07:53 | PN ---
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, Physician - Current Medication List Current Medications: Active Medications Acetaminophen (Tylenol -) 650 mg PO Q6H PRN PRN Reason: FEVER OR PAIN Albuterol/Ipratropium (Duoneb -) 1 amp NEB Q6HPO CATHERINE Last Admin: 05/06/16 06:09 Dose: 1 amp Carbamazepine (Tegretol -) 100 mg PO TIDCM [facility] Last Admin: 05/05/16 19:09 Dose: Not Given Clonazepam (Klonopin -) 0.5 mg PO BID PRN PRN Reason: ANXIETY Enoxaparin Sodium (Lovenox -) 40 mg SQ DAILY [facility] Last Admin: 05/05/16 17:29 Dose: 40 mg Hydrocortisone Sodium Succinate (Solu-Cortef -) 100 mg IVPB Q8H-IV CATHERINE Last Admin: 05/06/16 02:40 Dose: 100 mg Sodium Chloride (Normal Saline -) 1,000 mls @ 100 mls/hr IV ASDIR [facility] Last Admin: 05/05/16 13:25 Dose: 100 mls/hr Pantoprazole Sodium (Protonix 40mg Ivpb (Pre-Docked)) 100 mls @ 200 mls/hr IVPB BID C[facility]ERINE Last Admin: 05/05/16 21:59 Dose: 200 mls/hr Meropenem 500 mg/ Dextrose 100 mls @ 200 mls/hr IVPB Q8H-IV CATHERINE Last Admin: 05/06/16 02:39 Dose: 200 mls/hr Norepinephrine Bitartrate 8, (000 mcg/ Dextrose) 500 mls @ 18.75 mls/hr IV TITR CATHERINE; 5 MCG/MIN PRN Reason: Protocol Last Titration: 05/06/16 05:30 Dose: 3 mcg/min Gentamicin Sulfate 350 mg/ (Sodium Chloride) 108.75 mls @ 100 mls/hr IVPB ONCE ONE Stop: 05/06/16 08:13 Levothyroxine Sodium (Synthroid -) 88 mcg PO DAILY@0700 [facility] Last Admin: 05/05/16 15:59 Dose: 88 mcg Levothyroxine Sodium (Synthroid Injection -) 44 mcg IVPUSH DAILY CATHERINE Mirtazapine (Remeron -) 7.5 mg PO HS [facility] Last Admin: 05/05/16 21:59 Dose: 7.5 mg Silver Sulfadiazine (Silvadene -) 1 applic TP DAILY [facility] Last Admin: 05/05/16 13:55 Dose: 1 applic Sodium Chloride (Normal Saline -) 720 ml IV Q20M PRN PRN Reason: MAP<65mm Hg OR SBP <90 Last Admin: 05/04/16 17:28 Dose: 720 ml Valacyclovir HCl (Valtrex -) 1,000 mg PO BID [facility] Last Admin: 05/05/16 22:08 Dose: Not Given Vancomycin HCl (Vancomycin (Pre-Docked)) 1,000 mg IVPB BID [facility] Last Admin: 05/05/16 21:59 Dose: 1,000 mg - Objective Vital Signs: Vital Signs Temperature 98 F 05/06/16 06:30 Pulse Rate 95 H 05/06/16 06:30 Respiratory Rate 16 05/06/16 06:49 Blood Pressure 84/52 05/06/16 06:30 O2 Sat by Pulse Oximetry (%) 94 L 05/05/16 22:00 Cardiovascular: Yes: Tachycardia, S1, S2 Respiratory: Yes: Mechanically Ventilated Gastrointestinal: Yes: Normal Bowel Sounds, Soft Edema: No Labs: CBC, BMP 05/06/16 05:00 05/06/16 05:00 INR, PTT INR 1.22 (0.82-1.09) H 05/05/16 08:10 Problem List - Problems (1) Sepsis Assessment/Plan: IV ABX CULTURES ID CONSUULT PRESSERS Code(s): A41.9 - SEPSIS, UNSPECIFIED ORGANISM Qualifiers: Sepsis type: sepsis due to unspecified organism Qualified Code(s): A41.9 - Sepsis, unspecified organism (2) Altered mental status Assessment/Plan: DUE TO ABOVE IMPROVING Code(s): R41.82 - ALTERED MENTAL STATUS, UNSPECIFIED Qualifiers: Altered mental status type: transient alteration of awareness Qualified Code(s): R40.4 - Transient alteration of awareness (3) Hyponatremia Assessment/Plan: IVF MONITOR NA 128 Code(s): E87.1 - HYPO-OSMOLALITY AND HYPONATREMIA (4) Multiple sclerosis Code(s): G35 - MULTIPLE SCLEROSIS (5) Adrenal insufficiency Assessment/Plan: IV SOLUCORTEF ENDO Code(s): E27.40 - UNSPECIFIED ADRENOCORTICAL INSUFFICIENCY (6) Anemia Assessment/Plan: REPEAT TRANSFUSE Code(s): D64.9 - ANEMIA, UNSPECIFIED Qualifiers: Other causes of anemia: chronic disease, other
[2016-05-06] MEDS ORDERED: PT OWN MED DRAWER 7, Y5N ONE ×3 (09:06→17:32)
[2016-05-06] MEDS: PANTOPRAZOLE SODIUM 100 ML IVPB SCH ×2 (09:16→21:01)
[2016-05-06] MEDS: ENOXAPARIN NA (PORCINE) 40 MG/0.4 ML DISP.SYRIN SQ SCH (09:19)
--- NOTE | 2016-05-06 09:36 | CONSULT ---
Admitting History and Physical - Primary Care Physician PCP: Anne Lopez - Admission History of Present Illness: Per EMR:"History of Present Illness: 51yr old woman with PMHx of HTN, MS with associated quadraplegia, chronic respiratory insufficiency with trach and vent use overnight, seizure disorder, hypothyroidism and multiple admissions for MDR infections (UTI, sacral wound). Pt presents to the ER with CC of AMS. In the ER pt with wbc 16.2, H/H 8.3*25.4, Sodium 127, BUN/Cr 29/1.0 and glucose 64, +UA. Concern for Baclofen toxicity," ID Assessment: "Sepsis syndrome urinary tract source History of resistant organisms in the urine Respiratory failure Possible pneumonia lower lobe infiltrates ? Multiple sclerosis Altered mental status possible metabolic encephalopathy Recent shingles in March" Pt was on soft diet. Now NPO. Last mbs 05/16/15- Safest diet puree and nectar. However, as pt and family wanted most liberal diet for best quality of life, pt received soft solids and thin liquids. Pt, psychodramatist and family educated repeatedly on safest compensatory swallowing strategies to maximize PO tolerance. Last seen by be during 02/2017- ENT visualized vocal cords with no impairment identified. Pt provided with soft solids, thin liquids via straw per family request. Silent aspiration can not be r/o at bedside. Poor compliance by family with rec made following last MBS. Family feels pt is tolerating diet. No overt symptoms of vocal wetness/cough, although double swallows generated per bite/sip. Pt's mother reported some increased difficulty in swallowing solids during the week before admission, with food sticking and "not wanting to go down." Pt presently on ventilator. Appears very weak. Pt stating she feels "bad." History Source: Patient, Family Member, Medical Record Limitations to Obtaining History: No Limitations (ventilator) - Past Medical History VISUAL EFFECTS EDITOR: Yes: Multiple Sclerosis (quadraplegia), Other (legally blind, trigeminal neuralgia -> baclofen pump) Cardiovascular: Yes: HTN, Hyperlipdemia Pulmonary: Yes: Pneumonia (recurrent aspiration -> last one in 05/21 (RLL)), Other (hypercapneic respiratory failure s/p trach) Gastrointestinal: Yes: Constipation (chronic) Renal/: Yes: Neurogenic Bladder ( neurogenic bladder, chronic perera catheter) ...LMP: 06/07/12 Heme/Onc: Yes: Anemia Infectious Disease: Yes: Other (pneumonia, uti treated by urologist) Musculoskeletal: Yes: Other Dermatology: Yes: Other (chronic decubitus followed by wound care) - Smoking History Smoking history: Never smoked Have you smoked in the past 12 months: No Aproximately how many cigarettes per day: 0 - Alcohol/Substance Use Hx Alcohol Use: No History of Substance Use: reports: None - Social History ADL: Support Services History of Recent Travel: No History - Admission Reason For Visit: AMS,HYPOTENSION - Diagnostics X-ray: Report Reviewed - General Mental Status: Alert and Oriented, Awake and Alert, Able to Follow Commands Attention: Intact Ability to Follow Directions: Fair Head/Neck Control: Needs Assist - Hearing Hearing: Normal Speech Evaluation - Communication Primary Language: [place] Oral Expression Ability: Yes: Non-Vocal (on ventilator.Able to mouth words.Legally blind. Quadraplegic. Inability to us communication board.) - Speech Characteristics Articulation: Yes: Precise - Swallow Evaluation/Bedside Assessment Current Nutritional Intake: NPO Oral Secretions: Yes: Drooling (at times) Patient on Ventilator: Yes Dentition: Yes: Adequate Facial Symmetry at Rest: Symmetrical Laryngeal Elevation: Impaired Laryngeal Movement: Able to Palpate, Reduced Excursion, Labored,delay initiation , Reduced Velocity A-P Transit: Impaired Timing of Swallow: Delayed Recommendations - Speech Evaluation, Impression/Plan Impression: Pt is much weaker than baseline. Swallow noted to be slow and delayed in initiation and reduced excursion. Strong suspicion for high risk of stasis/aspiration. PO trial deferred as risk outweighs benefit and pt said "no" repeatedly when asked if she wanted to try applesauce, drink, or ice chip. - Dysphagia Impressions/Plan Swallowing Skills: Impaired Dysphagia Impressions: Ongoing Evaluation, Suspect Aspiration *Silent aspiration: cannot be R/O at bedside - Recommendations Diet Consistency: NPO
[2016-05-06] MEDS ORDERED: SODIUM CHLORIDE 500 ML IV STA (09:45)
[2016-05-06] MEDS: LEVOTHYROXINE SODIUM 100 MCG VIAL IVPUSH SCH (09:45)
--- NOTE | 2016-05-06 10:32 | PN ---
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 (short form) - Note 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: Renal Followup for Hyponatremia Pt seen and examined in the ICU on Vent via trach hypotensive overnight CVP 2-3 this am on Levophed 2 mcg Vital Signs Temperature 98 F 05/06/16 06:30 Pulse Rate 102 H 05/06/16 09:09 Respiratory Rate 15 05/06/16 09:30 Blood Pressure 141/87 05/06/16 09:09 O2 Sat by Pulse Oximetry (%) 94 L 05/05/16 22:00 Intake & Output 05/03/16 05/04/16 05/05/16 05/06/16 23:59 23:59 23:59 23:59 Intake Total 3660 2343 1180 Output Total 270 3180 1100 Balance 3390 -837 80 Weight 160 lb 0.008 oz 171 lb 5 oz 174 lb Gen: Awake on Trach Collar HEENT: Trach in place, no JVD CVS: RRR, No M/R Lungs: Dec BS left lung Abd: Soft NT/ND Ext: no edema, clubbing or cyanosis : perera in place CBC, BMP 05/06/16 05:00 05/06/16 05:00 Laboratory Tests 11/03/14 11/05/14 11/07/14 16:07 05:30 08:25 Calcium 8.2 L Phosphorus Magnesium Albumin 1.9 L TSH 6.57 H Free T4 0.52 L 05/06/16 05:00 Calcium 8.5 D Phosphorus 3.9 Magnesium 2.1 Albumin TSH Free T4 Current Medications Acetaminophen (Tylenol -) 650 mg PO Q6H PRN PRN Reason: FEVER OR PAIN Albuterol/Ipratropium (Duoneb -) 1 amp NEB Q6HPO [facility] Last Admin: 05/06/16 06:09 Dose: 1 amp Carbamazepine (Tegretol -) 100 mg PO TIDCM [facility] Last Admin: 05/05/16 19:09 Dose: Not Given Clonazepam (Klonopin -) 0.5 mg PO BID PRN PRN Reason: ANXIETY Enoxaparin Sodium (Lovenox -) 40 mg SQ DAILY [facility] Last Admin: 05/06/16 09:19 Dose: 40 mg Hydrocortisone Sodium Succinate (Solu-Cortef -) 40 mg IVPB Q8H-IV [facility] Last Admin: 05/06/16 10:26 Dose: 40 mg Sodium Chloride (Normal Saline -) 1,000 mls @ 100 mls/hr IV ASDIR [facility] Last Admin: 05/05/16 13:25 Dose: 100 mls/hr Pantoprazole Sodium (Protonix 40mg Ivpb (Pre-Docked)) 100 mls @ 200 mls/hr IVPB BID [facility] Last Admin: 05/06/16 09:16 Dose: 200 mls/hr Meropenem 500 mg/ Dextrose 100 mls @ 200 mls/hr IVPB Q8H-IV [facility] Last Admin: 05/06/16 09:13 Dose: 200 mls/hr Norepinephrine Bitartrate 8, (000 mcg/ Dextrose) 500 mls @ 18.75 mls/hr IV TITR CATHERINE; 5 MCG/MIN PRN Reason: Protocol Last Titration: 05/06/16 09:09 Dose: 2 mcg/min Sodium Chloride (Normal Saline -) 500 mls @ 500 mls/hr IV ASDIR STA Stop: 05/06/16 10:44 Levothyroxine Sodium (Synthroid -) 88 mcg PO DAILY@0700 [facility] Last Admin: 05/05/16 15:59 Dose: 88 mcg Levothyroxine Sodium (Synthroid Injection -) 44 mcg IVPUSH DAILY [facility] Last Admin: 05/06/16 09:45 Dose: 44 mcg Mirtazapine (Remeron -) 7.5 mg PO HS [facility] Last Admin: 05/05/16 21:59 Dose: 7.5 mg Silver Sulfadiazine (Silvadene -) 1 applic TP DAILY [facility] Last Admin: 05/05/16 13:55 Dose: 1 applic Sodium Chloride (Normal Saline -) 720 ml IV Q20M PRN PRN Reason: MAP<65mm Hg OR SBP <90 Last Admin: 05/04/16 17:28 Dose: 720 ml Valacyclovir HCl (Valtrex -) 1,000 mg PO BID [facility] Last Admin: 05/05/16 22:08 Dose: Not Given Vancomycin HCl (Vancomycin (Pre-Docked)) 1,000 mg IVPB BID [facility] Last Admin: 05/05/16 21:59 Dose: 1,000 mg A/P 51 year old woman with PMHx of Multiple Sclerosis, Chronic Resp Failure with Trach Collar, Hx of recurrent UTI, Periods of hyponatremia presented with AMS/ Lethargy and found to have Sepsis with Hypotension and Na of 126. #Acute on Chronic Hyponatremia Serum Na downtrended from yesterday to today continue Isotonic Saline for management of hypotension/hypovolemia Trend Na Q12h No indication for 3% saline Try to limit free water infusions (mix Abx in NS as opposed to D5W) #Sepsis secondary to UTI ICU monitoring Vent support Keep MAP > 65, CVP 10-12 on Vent IVF as needed Pressers as needed #MS supportive care #Recent Zoster infection On PO Valcyclovir today #Anemia Trend CBC Transfuse as per ICU protocol Thank you Will follow Tyshawn Doe DO
[2016-05-06] MEDS: VANCOMYCIN 1 GRAM (PRE-DOCKED) 1,000 MG/250 ML BAG IVPB SCH ×2 (11:26→21:01)
[2016-05-06] MEDS: carBAMazepine 100 MG TAB.CHEW PO SCH ×3 (11:31→19:43)
--- NOTE | 2016-05-06 13:45 | PN ---
Teaching Attending Note Name of Resident: Mickey Mandel ATTENDING PHYSICIAN STATEMENT I saw and evaluated the patient. I reviewed the resident's note and discussed the case with the resident. I agree with the resident's findings and plan as documented. SUBJECTIVE: Patient seen and examined in the ICU. More awake and alert today. Became tachypneic last night and IVF were stopped and lasix given. Remains on NE for BP support. CXR: Pulmonary vascular congestion Intake & Output 05/03/16 05/04/16 05/05/16 05/06/16 23:59 23:59 23:59 23:59 Intake Total 3660 2343 1180 Output Total 270 3180 1100 Balance 3390 -837 80 Weight 160 lb 0.008 oz 171 lb 5 oz 174 lb Last Vital Signs Temp Pulse Resp BP Pulse Ox 97.4 F L 104 H 28 H 77/48 96 05/06/16 10:00 05/06/16 12:04 05/06/16 12:00 05/06/16 12:04 05/06/16 08:57 Active Medications Acetaminophen (Tylenol -) 650 mg PO Q6H PRN PRN Reason: FEVER OR PAIN Albuterol/Ipratropium (Duoneb -) 1 amp NEB Q6HPO [facility] Last Admin: 05/06/16 11:30 Dose: 1 amp Carbamazepine (Tegretol -) 100 mg PO TIDCM [facility] Last Admin: 05/06/16 11:31 Dose: Not Given Clonazepam (Klonopin -) 0.5 mg PO BID PRN PRN Reason: ANXIETY Enoxaparin Sodium (Lovenox -) 40 mg SQ DAILY [facility] Last Admin: 05/06/16 09:19 Dose: 40 mg Hydrocortisone Sodium Succinate (Solu-Cortef -) 40 mg IVPB Q8H-IV [facility] Last Admin: 05/06/16 10:26 Dose: 40 mg Sodium Chloride (Normal Saline -) 1,000 mls @ 100 mls/hr IV ASDIR [facility] Last Admin: 05/05/16 13:25 Dose: 100 mls/hr Pantoprazole Sodium (Protonix 40mg Ivpb (Pre-Docked)) 100 mls @ 200 mls/hr IVPB BID [facility] Last Admin: 05/06/16 09:16 Dose: 200 mls/hr Meropenem 500 mg/ Dextrose 100 mls @ 200 mls/hr IVPB Q8H-IV [facility] Last Admin: 05/06/16 09:13 Dose: 200 mls/hr Norepinephrine Bitartrate 8, (000 mcg/ Dextrose) 500 mls @ 18.75 mls/hr IV TITR [facility]ATHER[facility]; 5 MCG/MIN PRN Reason: Protocol Last Titration: 05/06/16 12:04 Dose: 3 mcg/min Levothyroxine Sodium (Synthroid -) 88 mcg PO DAILY@0700 [facility] Last Admin: 05/05/16 15:59 Dose: 88 mcg Levothyroxine Sodium (Synthroid Injection -) 44 mcg IVPUSH DAILY [facility] Last Admin: 05/06/16 09:45 Dose: 44 mcg Mirtazapine (Remeron -) 7.5 mg PO HS [facility] Last Admin: 05/05/16 21:59 Dose: 7.5 mg Silver Sulfadiazine (Silvadene -) 1 applic TP DAILY [facility] Last Admin: 05/05/16 13:55 Dose: 1 applic Sodium Chloride (Normal Saline -) 720 ml IV Q20M PRN PRN Reason: MAP<65mm Hg OR SBP <90 Last Admin: 05/04/16 17:28 Dose: 720 ml Vancomycin HCl (Vancomycin (Pre-Docked)) 1,000 mg IVPB BID [facility] Last Admin: 05/06/16 11:26 Dose: 1,000 mg Constitutional: Yes: Awake, NAD Eyes: Yes: WNL, (-) Pallor HENT: Yes: WNL Neck: Yes: WNL Cardiovascular: Yes: S1, S2 Respiratory: Yes: Trached / Mechanically Ventilated, bibasilar Rhonchi Gastrointestinal: Yes: Normal Bowel Sounds, Soft, Abdomen, Obese. No: Tenderness ...Rectal Exam: Yes: Deferred Renal/: Yes: Raza Present (yellow output) Musculoskeletal: Yes: WNL Extremities: Yes: Cool Edema: Yes Edema: LLE: Trace, RLE: Trace Peripheral Pulses WNL: Yes (+1 bilateral pedal pulses) Integumentary: Yes: Other (trunk and upper thigh red raised patches, consistent with healing bilateral shingles+/- dermatitis) Wound/Incision: Yes: Other (tunneling sacral wound and to left buttocks) Neurological: Yes: Confusion, Lethargy Labs: Laboratory Results - last 24 hr 05/05/16 05/05/16 05/05/16 01:08 05:21 07:53 WBC RBC Hgb Hct MCV MCHC RDW Plt Count MPV Neutrophils % Lymphocytes % Monocytes % Band Neutrophils Sodium Potassium Chloride Carbon Dioxide Anion Gap BUN Creatinine POC Glucometer 107.35900 70.08276 124.47177 Random Glucose Serum Osmolality Calcium Phosphorus Magnesium Cortisol AM Sample Urine Osmolality Ur Random Sodium 05/05/16 05/05/16 05/05/16 08:10 12:23 17:38 WBC RBC Hgb Hct MCV MCHC RDW Plt Count MPV Neutrophils % Lymphocytes % Monocytes % Band Neutrophils Sodium Potassium Chloride Carbon Dioxide Anion Gap BUN Creatinine POC Glucometer 132.35638 169.64509 Random Glucose Serum Osmolality Calcium Phosphorus Magnesium Cortisol AM Sample 34.5 Urine Osmolality Ur Random Sodium 05/06/16 05/06/16 05/06/16 05:00 05:00 05:00 WBC 22.9 H RBC 2.97 L Hgb 9.4 L Hct 28.3 L MCV 95.4 MCHC 33.3 RDW 18.2 H Plt Count 141 D MPV 9.5 Neutrophils % 65.0 Lymphocytes % Y Monocytes % 2.0 L Band Neutrophils 33.0 H D Sodium 128 L Potassium 4.7 D Chloride 94 L D Carbon Dioxide 23 Anion Gap 11 BUN 21 H Creatinine 0.9 D POC Glucometer Random Glucose 111 H D Serum Osmolality 262 L Calcium 8.5 D Phosphorus 3.9 Magnesium 2.1 Cortisol AM Sample Urine Osmolality Ur Random Sodium 05/06/16 05/06/16 05/06/16 05:10 10:30 10:30 WBC RBC Hgb Hct MCV MCHC RDW Plt Count MPV Neutrophils % Lymphocytes % Monocytes % Band Neutrophils Sodium Potassium Chloride Carbon Dioxide Anion Gap BUN Creatinine POC Glucometer [phone] Random Glucose Serum Osmolality Calcium Phosphorus Magnesium Cortisol AM Sample Urine Osmolality 159 L D Ur Random Sodium 24 Assessment/Plan Septic Shock Suspected RLL PNA R/O UTI (?) Component of Autonomic dysfunction causing hypotension (?) Baclofen effect MS with quadraplegia Acute on Chronic respiratory failure / trach and nocturnal vent dependence Seizure disorder Hypothyroidism MDR infections (UTI, sacral wound) AC Mode of vent -> Trach collar as tolerated Would try to minimize IVF NE for BP support Broad ABX per ID NGT for feeds/meds Monitor daily CXR Aspiration precautions VTE prophylaxis BD TX Follow CVP Dr Fox CCTime 35"
[2016-05-06] MEDS: SILVER SULFADIAZINE 1% TOP CREAM 50 GM JAR TP SCH (14:00)
--- NOTE | 2016-05-06 15:41 | PN ---
Physical Exam: SUBJECTIVE: Patient seen and examined at bedside in the ICU. She is trached and on vent, eyes open and track objects but still does not follow command. Per nurse, patient had acute respiratory distress overnight due to fluid overload, which resolved after lasix. No fever, chills, chest pain, abd pain. OBJECTIVE: Vital Signs Trached on mechanical ventilation Vent settings: AC, RR 14, TV 450, FiO2 40, PEEP 5 On levophed 3 mcg Central line (triple lumen, IJ) placed, day 2 Period Temp Pulse Resp BP Sys/Morillo Pulse Ox Last 24 Hr 96.3 F-98 F 72-116 15-28 77-175/42-87 94-99 GENERAL: The patient is awake, alert, but not aware, does not follow commands RASS = 0 EYES: pupils equal and reactive to light ENT: NG tube in place, mouth drooling clear saliva LUNGS: decreased breath sounds HEART: Regular rate and rhythm, S1, S2 without murmur, rub or gallop ABDOMEN: Soft, nontender, nondistended, normoactive bowel sounds EXTREMITIES: large circular rashes on bilateral lower extremities, dry blisters , no edema : perera in place CBCD WBC 22.9 K/mm3 (4.0-10.0) H 05/06/16 05:00 RBC 2.97 M/mm3 (3.60-5.2) L 05/06/16 05:00 Hgb 9.4 GM/dL (10.7-15.3) L 05/06/16 05:00 Hct 28.3 % (32.4-45.2) L 05/06/16 05:00 MCV 95.4 fl (80-96) 05/06/16 05:00 MCHC 33.3 g/dl (32.0-36.0) 05/06/16 05:00 RDW 18.2 % (11.6-15.6) H 05/06/16 05:00 Plt Count 141 K/MM3 (134-434) D 05/06/16 05:00 MPV 9.5 fl (7.5-11.1) 05/06/16 05:00 CMP Sodium 128 mmol/L (136-145) L 05/06/16 05:00 Potassium 4.7 mmol/L (3.5-5.1) D 05/06/16 05:00 Chloride 94 mmol/L (98-107) L D 05/06/16 05:00 Carbon Dioxide 23 mmol/L (21-32) 05/06/16 05:00 Anion Gap 11 (8-16) 05/06/16 05:00 BUN 21 mg/dL (7-18) H 05/06/16 05:00 Creatinine 0.9 mg/dL (0.55-1.02) D 05/06/16 05:00 Creat Clearance w eGFR > 60 (>60) 05/05/16 05:10 Calcium 8.5 mg/dL (8.5-10.1) D 05/06/16 05:00 Total Bilirubin 0.2 mg/dL (0.2-1.0) D 05/05/16 05:10 AST 30 U/L (15-37) D 05/05/16 05:10 ALT 35 U/L (12-78) D 05/05/16 05:10 Alkaline Phosphatase 199 U/L (45-117) H D 05/05/16 05:10 Total Protein 3.7 g/dl (6.4-8.2) L D 05/05/16 05:10 Albumin 1.3 g/dl (3.4-5.0) L D 05/05/16 05:10 Intake & Output 05/03/16 05/04/16 05/05/16 05/06/16 23:59 23:59 23:59 23:59 Intake Total 3660 2343 1180 Output Total 270 3180 1100 Balance 3390 -837 80 Weight 72.575 kg 77.706 kg 78.925 kg Urine Test Results Urine Color Yellow 05/04/16 13:52 Urine Appearance Turbid 05/04/16 13:52 Urine pH 5.0 (5.0-8.0) 05/04/16 13:52 Ur Specific [place] 1.016 (1.001-1.035) 05/04/16 13:52 Urine Protein 2+ (NEGATIVE) H 05/04/16 13:52 Urine Glucose (UA) 1+ (NEGATIVE) H 05/04/16 13:52 Urine Ketones Negative (NEGATIVE) 05/04/16 13:52 Urine Blood Negative (NEGATIVE) 05/04/16 13:52 Urine Nitrite Negative (NEGATIVE) 05/04/16 13:52 Urine Bilirubin Negative (NEGATIVE) 05/04/16 13:52 Ur Leukocyte Esterase 3+ (NEGATIVE) H 05/04/16 13:52 Urine RBC 15 /hpf (0-3) 05/04/16 13:52 Urine WBC 537 /hpf (3-5) 05/04/16 13:52 Ur Epithelial Cells Rare /hpf (FEW) 05/04/16 13:52 Urine Bacteria Many /hpf (NONE SEEN) 05/04/16 13:52 Active Medications Generic Name Dose Route Start Last Admin Trade Name Freq PRN Reason Stop Dose Admin Acetaminophen 650 mg 05/04/16 21:42 Tylenol - PO Q6H PRN FEVER OR PAIN Albuterol/Ipratropium 1 amp 05/05/16 12:00 05/06/16 11:30 Duoneb - NEB 1 amp Q6HPO [facility] Administration Carbamazepine 100 mg 05/05/16 08:00 05/06/16 11:31 Tegretol - PO Not Given TIDCM [facility] Clonazepam 0.5 mg 05/04/16 21:41 Klonopin - PO BID PRN ANXIETY Enoxaparin Sodium 40 mg 05/05/16 16:45 05/06/16 09:19 Lovenox - SQ 40 mg DAILY [facility] Administration Hydrocortisone Sodium Succinate 40 mg 05/06/16 10:00 05/06/16 10:26 Solu-Cortef - IVPB 40 mg Q8H-IV [facility] Administration Sodium Chloride 1,000 mls @ 100 mls/hr 05/05/16 02:30 05/05/16 13:25 Normal Saline - IV 100 mls/hr ASDIR [facility] Administration Pantoprazole Sodium 100 mls @ 200 mls/hr 05/05/16 10:00 05/06/16 09:16 Protonix 40mg Ivpb (Pre-Docked) IVPB 200 mls/hr BID [facility] Administration Meropenem 500 mg/ Dextrose 100 mls @ 200 mls/hr 05/05/16 11:00 05/06/16 09:13 IVPB 200 mls/hr Q8H-IV [facility] Administration Norepinephrine Bitartrate 8, 500 mls @ 18.75 mls/hr 05/05/16 13:00 05/06/16 12: 04 000 mcg/ Dextrose IV 3 mcg/min TITR [facility]ERINE Titration Protocol 5 MCG/MIN Levothyroxine Sodium 88 mcg 05/05/16 07:00 05/05/16 15:59 Synthroid - PO 88 mcg DAILY@0700 [facility] Administration Levothyroxine Sodium 44 mcg 05/06/16 10:00 05/06/16 09:45 Synthroid Injection - IVPUSH 44 mcg DAILY [facility] Administration Mirtazapine 7.5 mg 05/04/16 22:00 05/05/16 21:59 Remeron - PO 7.5 mg HS [facility] Administration Silver Sulfadiazine 1 applic 05/05/16 11:45 05/05/16 13:55 Silvadene - TP 1 applic DAILY [facility] Administration Sodium Chloride 720 ml 05/04/16 12:07 05/04/16 17:28 Normal Saline - IV 720 ml Q20M PRN Administration MAP<65mm Hg OR SBP <90 Vancomycin HCl 1,000 mg 05/05/16 10:15 05/06/16 11:26 Vancomycin (Pre-Docked) IVPB 1,000 mg BID [facility] Administration Microbiology 05/05/16 02:00 Urine For Antigen Detection Legionella Antigen - Final 05/05/16 02:00 Urine For Antigen Detection Streptococcus pneumoniae Antigen (M - Final 05/05/16 02:00 Nasopharyngeal Swab Respiratory Virus Panel - Preliminary 05/04/16 13:15 Blood - Peripheral Venous Blood Culture - Preliminary NO GROWTH OBTAINED AFTER 24 HOURS, INCUBATION TO CONTINUE FOR 4 DAYS. 05/04/16 13:20 Blood - Peripheral Venous Blood Culture - Preliminary NO GROWTH OBTAINED AFTER 24 HOURS, INCUBATION TO CONTINUE FOR 4 DAYS. Imaging: CXR : No significant change with NG tube in place. CXR 05/05: A single frontal portable projection of the chest at 12:56 PM is submitted. Since a prior study of earlier in the day, a right-sided triple- lumen catheter has been placed via the internal jugular vein with distal tip in the region of the SVC. No pneumothorax is identified. A tracheostomy tube remains in place. Bilateral pleural effusions are also reidentified. Right- sided triple-lumen catheter placement as described above ASSESSMENT/PLAN: 51 yo F h/o HTN, multiple sclerosis with quadraplegia, chronic urinary retention and chronic respiratory insufficiency, seizure disorder and hypothyroidism admitted to the ICU for baclofen toxicity vs. sepsis 2/2 UTI. Patient is trached and on venti-mask during the day and on vent at night. She had multiple admissions for MDR infections such as UTI and decubitus ulcer in the sacral. Neuro: AMS 2/2 baclofen toxicity vs. UTI - Baseline: AAO x 3, talks, eats - Mental status waxes and weans - Baclofen level still pending - Cont. AED and zolof - Neuro check Q2H Pulm: Chronic respiratory insufficiency 2/2 ?MS - Trached on vent: see settings above - Maintain O2 Sat. > 88% - Nebulizers PRN - Daily ABG and CXR ID: Sepsis 2/2 UTI, Complicated vs Sacral decubitus ulcers - Indwelling perera catheter - H/O MDR infections: UTI, PNA, shingles - WBC 537 on UA - WBC on CBC trending up but remains afrebile - Routine wound care - Lactic acid normalized - Pending final cultures - Received a dose of gentamicin and still on Meropenem and Vancomycin Renal/: UTI in the setting of chronic urinary retention - Fluid held due to fluid overload - Maintain perera for urinary retention Heme: Macrocytic Anemia - Baseline HGB @ 8.6-10 - Transfuse if < 7 Cardiac: Hypotension - On levophed, maintain MAP > 65% - Hold all anti-BP meds Endo: Hypothyrodism and adrenal insufficiency - Normal TSH and free T4 - Cont. synthroid - Cortisol level normal Derm: Lower extremity purpura 2/2 drug allergy vs. skin irritation - Only seen in b/l extremities - Not painful, no discharge, not raised - Observe for now FEN - Fluid held - Cont. to monitor lytes - NG tube inserted today, TwoCal with high concentration and no water added - Prophylaxis - DVT: lovenox 40mg QD - GI: on PPI Disposition - Continues to require inpatient ICU care Code status - Full code Visit type - Emergency Visit Emergency Visit: No - New Patient This patient is new to me today: No - Critical Care Critical Care patient: Yes Total Critical Care Time (in minutes): 45 Critical Care Statement: The care of this patient involved high complexity decision making to prevent further life threatening deterioration of the patient 's condition and/or to evalute & treat vital organ system(s) failure or risk of failure.
[2016-05-06] MEDS: MIRTAZAPINE 15 MG TABLET (FP) PO SCH (21:01)
[2016-05-07] MEDS: ALBUTEROL SO4 2.5/IPRATROPIUM 0.5 INH SOL 3 ML VIAL.NEB. NEB SCH ×5 (00:05→23:10)
[2016-05-07] MEDS ORDERED: PT OWN MED DRAWER 7, Y5N ONE ×5 (00:33→18:17)
[2016-05-07] MEDS: MEROPENEM 500 MG in DEXTROSE 5%-WATER - 100 ML IVPB SCH ×3 (02:11→18:23)
[2016-05-07] MEDS: HYDROCORTISONE SOD SUCCINATE 100 MG/2 ML VIAL IVPB SCH ×3 (02:13→18:23)
[2016-05-07 05:37] LABS: MCH 31.6 pg (25.7-33.7); MCHC 33.4 g/dl (32.0-36.0); MEAN CELL VOLUME 94.6 fl (80-96); MEAN PLT VOLUME 8.9 fl (7.5-11.1); PLATELET COUNT 113 K/MM3 (134-434); RDW 17.8 % (11.6-15.6); WHITE BLOOD COUNT 12.8 K/mm3 (4.0-10.0)
[2016-05-07 06:23] LABS: CALCIUM 8.3 mg/dL (8.5-10.1); MAGNESIUM 2.1 mg/dL (1.8-2.4)
[2016-05-07 06:26] LABS: CREATININE 0.7 mg/dL (0.55-1.02)
--- NOTE | 2016-05-07 07:17 | PN ---
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, Physician Chief Complaint: ID ICU follow up for this 51 year old female wit MS and recurrent UTIs admitted or readmitted to ICU for treatment of sepsis. Empiric thrapy with Vancomycin and Meropenem. Her aide call my attention to a rash on her thighs and lower legs present since before admission Low dose Levophed Vent depenedent via trach - Current Medication List Current Medications: Active Medications Acetaminophen (Tylenol -) 650 mg PO Q6H PRN PRN Reason: FEVER OR PAIN Albuterol/Ipratropium (Duoneb -) 1 amp NEB Q6HPO [facility], [facility] Last Admin: 05/07/16 06:24 Dose: 1 amp Amino Acids (Prosource No Carb Liquid Pkt) 30 ml NGT DAILY [facility] Carbamazepine (Tegretol -) 100 mg PO TIDCM [facility], [facility] Last Admin: 05/06/16 19:43 Dose: 100 mg Clonazepam (Klonopin -) 0.5 mg PO BID PRN PRN Reason: ANXIETY Enoxaparin Sodium (Lovenox -) 40 mg SQ DAILY [facility] Last Admin: 05/06/16 09:19 Dose: 40 mg Hydrocortisone Sodium Succinate (Solu-Cortef -) 40 mg IVPB Q8H-IV [facility] Last Admin: 05/07/16 02:13 Dose: 40 mg Sodium Chloride (Normal Saline -) 1,000 mls @ 100 mls/hr IV ASDIR [facility], [facility] Last Admin: 05/05/16 13:25 Dose: 100 mls/hr Pantoprazole Sodium (Protonix 40mg Ivpb (Pre-Docked)) 100 mls @ 200 mls/hr IVPB BID [facility], [facility] Last Admin: 05/06/16 21:01 Dose: 200 mls/hr Meropenem 500 mg/ Dextrose 100 mls @ 200 mls/hr IVPB Q8H-IV [facility] Last Admin: 05/07/16 02:11 Dose: 200 mls/hr Norepinephrine Bitartrate 8, (000 mcg/ Dextrose) 500 mls @ 18.75 mls/hr IV TITR [facility]; 5 MCG/MIN PRN Reason: Protocol Last Titration: 05/06/16 19:00 Dose: 1 mcg/min Levothyroxine Sodium (Synthroid -) 88 mcg PO DAILY@0700 [facility] Last Admin: 05/05/16 15:59 Dose: 88 mcg Levothyroxine Sodium (Synthroid Injection -) 44 mcg IVPUSH DAILY [facility] Last Admin: 05/06/16 09:45 Dose: 44 mcg Mirtazapine (Remeron -) 7.5 mg PO HS [facility] Last Admin: 05/06/16 21:01 Dose: 7.5 mg Silver Sulfadiazine (Silvadene -) 1 applic TP DAILY [facility] Last Admin: 05/06/16 14:00 Dose: 1 applic Sodium Chloride (Normal Saline -) 720 ml IV Q20M PRN PRN Reason: MAP<65mm Hg OR SBP <90 Last Admin: 05/04/16 17:28 Dose: 720 ml Vancomycin HCl (Vancomycin (Pre-Docked)) 1,000 mg IVPB BID [facility], [facility] Last Admin: 05/06/16 21:01 Dose: 1,000 mg - Objective Vital Signs: Vital Signs Temperature 97 F L 05/07/16 07:00 Pulse Rate 69 05/07/16 07:00 Respiratory Rate 19 05/07/16 07:00 Blood Pressure 108/54 05/07/16 07:00 O2 Sat by Pulse Oximetry (%) 97 05/06/16 20:27 Constitutional: Yes: Well Nourished, No Distress HENT: Yes: WNL, Atraumatic Neck: Yes: WNL, Supple, Other (tracheostomy) Cardiovascular: Yes: Regular Rate and Rhythm, S1, S2. No: Murmur Respiratory: Yes: WNL, Regular, CTA Bilaterally, Rhonchi Gastrointestinal: Yes: WNL, Normal Bowel Sounds, Soft. No: Splenomegaly, Tenderness, Tenderness, Rebound Extremities: No: Calf Tenderness, Cold, Cool, Cyanosis Edema: No Integumentary: Yes: Other (macular pap rash on thigh and LE) Labs: CBC, BMP 05/07/16 05:00 05/07/16 05:00 INR, PTT INR 1.22 (0.82-1.09) H 05/05/16 08:10 Problem List - Problems (1) Sepsis syndrome Code(s): [id number] - (2) Urinary tract infection Code(s): N39.0 - URINARY TRACT INFECTION, SITE NOT SPECIFIED (3) Multiple sclerosis Code(s): G35 - MULTIPLE SCLEROSIS (4) Respiratory failure Code(s): J96.90 - RESPIRATORY FAILURE, UNSP, UNSP W HYPOXIA OR HYPERCAPNIA (5) Multiple drug resistant organism (MDRO) culture positive Code(s): Z16.24 - RESISTANCE TO MULTIPLE ANTIBIOTICS Assessment/Plan Microbiology 05/05/16 02:00 Urine For Antigen Detection Legionella Antigen - Final 05/05/16 02:00 Urine For Antigen Detection Streptococcus pneumoniae Antigen (M - Final 05/04/16 13:52 Urine - Urine - Catheterized Urine Culture - Final Contaminated: Please Repeat 05/04/16 13:20 Blood - Peripheral Venous Blood Culture - Preliminary NO GROWTH OBTAINED AFTER 48 HOURS, INCUBATION TO CONTINUE FOR 3 DAYS. 05/04/16 13:15 Blood - Peripheral Venous Blood Culture - Preliminary NO GROWTH OBTAINED AFTER 48 HOURS, INCUBATION TO CONTINUE FOR 3 DAYS. Laboratory Tests 05/04/16 05/05/16 05/05/16 13:52 02:00 08:10 WBC 26.5 H D Plt Count INR 1.22 H BUN Creatinine Ur Leukocyte Esterase 3+ H Urine RBC 15 05/06/16 05/07/16 05/07/16 05:00 05:00 05:00 WBC 22.9 H 12.8 H D Plt Count 113 L INR BUN 21 H Creatinine 0.7 D Ur Leukocyte Esterase Urine RBC Assessment Sepsis syndrome urinary tract infection Respiratory failure Multiple sclerosis Rash looks allergic probable drug reaction Recent shingles Plan Not clear need vanco and level to high will stop it Continue Meropenem Redose Gentamicin Moniter rash Pressors to be weaned off Anam PATIÑO
[2016-05-07] MEDS ORDERED: GENTAMICIN SO4 *PEDIATRIC* 20 MG/2 ML VIAL IVPB ONE (07:22)
[2016-05-07 07:31] LABS: ARTERIAL BLD GAS O2 SATURATION 98.8 % (90-98.9); ARTERIAL BLOOD GAS BASE EXCESS 0.7 meq/l (-2-2); ARTERIAL BLOOD GAS HCO3 25.6 meq/L (22-26); ARTERIAL BLOOD GAS pH 7.37 (7.35-7.45)
[2016-05-07 07:32] LABS: ALLENS TEST POSITIVE; ART PUNCT SITE RIGHT RADIAL; LPM/O2% 40%; MECH. VENT. Y; PT. ON O2? YES; TYPE OF O2 VENT
[2016-05-07 07:33] LABS: VENT RATE 14; VT/PRESS 450
--- NOTE | 2016-05-07 08:05 | PN ---
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, Physician History of Present Illness: more lethargic - Current Medication List Current Medications: Active Medications Acetaminophen (Tylenol -) 650 mg PO Q6H PRN PRN Reason: FEVER OR PAIN Albuterol/Ipratropium (Duoneb -) 1 amp NEB Q6HPO [facility] Last Admin: 05/07/16 06:24 Dose: 1 amp Amino Acids (Prosource No Carb Liquid Pkt) 30 ml NGT DAILY [facility] Carbamazepine (Tegretol -) 100 mg PO TIDCM [facility] Last Admin: 05/06/16 19:43 Dose: 100 mg Clonazepam (Klonopin -) 0.5 mg PO BID PRN PRN Reason: ANXIETY Enoxaparin Sodium (Lovenox -) 40 mg SQ DAILY [facility] Last Admin: 05/06/16 09:19 Dose: 40 mg Hydrocortisone Sodium Succinate (Solu-Cortef -) 40 mg IVPB Q8H-IV [facility] Last Admin: 05/07/16 02:13 Dose: 40 mg Sodium Chloride (Normal Saline -) 1,000 mls @ 100 mls/hr IV ASDIR [facility] Last Admin: 05/05/16 13:25 Dose: 100 mls/hr Pantoprazole Sodium (Protonix 40mg Ivpb (Pre-Docked)) 100 mls @ 200 mls/hr IVPB BID [facility] Last Admin: 05/06/16 21:01 Dose: 200 mls/hr Meropenem 500 mg/ Dextrose 100 mls @ 200 mls/hr IVPB Q8H-IV [facility] Last Admin: 05/07/16 02:11 Dose: 200 mls/hr Norepinephrine Bitartrate 8, (000 mcg/ Dextrose) 500 mls @ 18.75 mls/hr IV TITR [facility]; 5 MCG/MIN PRN Reason: Protocol Last Titration: 05/07/16 07:37 Dose: 0 mcg/min Gentamicin Sulfate 350 mg/ (Sodium Chloride) 108.75 mls @ 217.5 mls/hr IVPB ONCE ONE Stop: 05/07/16 08:59 Levothyroxine Sodium (Synthroid -) 88 mcg PO DAILY@0700 [facility] Last Admin: 05/05/16 15:59 Dose: 88 mcg Levothyroxine Sodium (Synthroid Injection -) 44 mcg IVPUSH DAILY [facility] Last Admin: 05/06/16 09:45 Dose: 44 mcg Mirtazapine (Remeron -) 7.5 mg PO HS [facility] Last Admin: 05/06/16 21:01 Dose: 7.5 mg Silver Sulfadiazine (Silvadene -) 1 applic TP DAILY [facility] Last Admin: 05/06/16 14:00 Dose: 1 applic Sodium Chloride (Normal Saline -) 720 ml IV Q20M PRN PRN Reason: MAP<65mm Hg OR SBP <90 Last Admin: 05/04/16 17:28 Dose: 720 ml - Objective Vital Signs: Vital Signs Temperature 97 F L 05/07/16 07:00 Pulse Rate 69 05/07/16 07:00 Respiratory Rate 15 05/07/16 07:23 Blood Pressure 113/60 05/07/16 07:37 O2 Sat by Pulse Oximetry (%) 97 05/06/16 20:27 Cardiovascular: Yes: S1, S2 Respiratory: Yes: Diminished, Mechanically Ventilated Gastrointestinal: Yes: Normal Bowel Sounds, Soft Neurological: Yes: Lethargy, Pre-Existing Deficit Labs: CBC, BMP 05/07/16 05:00 05/07/16 05:00 INR, PTT INR 1.22 (0.82-1.09) H 05/05/16 08:10 Problem List - Problems (1) Sepsis Assessment/Plan: IV ABX CULTURES ID CONSUULT PRESSERS Code(s): A41.9 - SEPSIS, UNSPECIFIED ORGANISM Qualifiers: Sepsis type: sepsis due to unspecified organism Qualified Code(s): A41.9 - Sepsis, unspecified organism (2) Altered mental status Assessment/Plan: DUE TO ABOVE worsening today neuro Code(s): R41.82 - ALTERED MENTAL STATUS, UNSPECIFIED Qualifiers: Altered mental status type: transient alteration of awareness Qualified Code(s): R40.4 - Transient alteration of awareness (3) Hyponatremia Assessment/Plan: IVF MONITOR NA 128 Code(s): E87.1 - HYPO-OSMOLALITY AND HYPONATREMIA (4) Multiple sclerosis Assessment/Plan: NEURO Code(s): G35 - MULTIPLE SCLEROSIS (5) Adrenal insufficiency Assessment/Plan: IV SOLUCORTEF ENDO Code(s): E27.40 - UNSPECIFIED ADRENOCORTICAL INSUFFICIENCY (6) Anemia Assessment/Plan: REPEAT noted TRANSFUSE 2 units Code(s): D64.9 - ANEMIA, UNSPECIFIED Qualifiers: Other causes of anemia: chronic disease, other
[2016-05-07] MEDS ORDERED: GENTAMICIN INJECTION 350 MG in SODIUM CHLORIDE 100 ML IVPB ONE (08:30)
[2016-05-07] MEDS ORDERED: FUROSEMIDE 40 MG/4 ML INJECTABLE VIAL IVPUSH SCH (09:00)
[2016-05-07] MEDS ORDERED: AMINO ACIDS/PROTEIN HYDROLYS 30 ML LIQUID.PKT PO SCH (10:00)
[2016-05-07] MEDS ORDERED: AMINO ACIDS/PROTEIN HYDROLYS 30 ML LIQUID.PKT NGT SCH (10:00)
[2016-05-07] MEDS: carBAMazepine 100 MG TAB.CHEW PO SCH ×3 (10:00→18:22)
[2016-05-07] MEDS: ENOXAPARIN NA (PORCINE) 40 MG/0.4 ML DISP.SYRIN SQ SCH (10:02)
[2016-05-07] MEDS: PANTOPRAZOLE SODIUM 100 ML IVPB SCH ×3 (10:03→22:01)
[2016-05-07] MEDS: LEVOTHYROXINE SODIUM 100 MCG VIAL IVPUSH SCH (11:14)
--- NOTE | 2016-05-07 12:04 | PN ---
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, Physician Chief Complaint: Patient seen in the ICU. Comfortable. less responsive thn before. Remains vent supported mother by her side. Maintains good urine output. - Current Medication List Current Medications: Active Medications Acetaminophen (Tylenol -) 650 mg PO Q6H PRN PRN Reason: FEVER OR PAIN Albuterol/Ipratropium (Duoneb -) 1 amp NEB Q6HPO [facility] Last Admin: 05/07/16 11:04 Dose: 1 amp Amino Acids (Prosource No Carb Liquid Pkt) 30 ml NGT DAILY [facility] Carbamazepine (Tegretol -) 100 mg PO TIDCM [facility] Last Admin: 05/07/16 10:00 Dose: 100 mg Clonazepam (Klonopin -) 0.5 mg PO BID PRN PRN Reason: ANXIETY Enoxaparin Sodium (Lovenox -) 40 mg SQ DAILY [facility] Last Admin: 05/07/16 10:02 Dose: 40 mg Furosemide (Lasix Injection -) 40 mg IVPUSH [employer] [facility] Stop: 05/07/16 14:00 Hydrocortisone Sodium Succinate (Solu-Cortef -) 40 mg IVPB Q8H-IV [facility] Last Admin: 05/07/16 10:04 Dose: 40 mg Sodium Chloride (Normal Saline -) 1,000 mls @ 100 mls/hr IV ASDIR [facility] Last Admin: 05/05/16 13:25 Dose: 100 mls/hr Pantoprazole Sodium (Protonix 40mg Ivpb (Pre-Docked)) 100 mls @ 200 mls/hr IVPB BID [facility] Last Admin: 05/07/16 10:03 Dose: 200 mls/hr Meropenem 500 mg/ Dextrose 100 mls @ 200 mls/hr IVPB Q8H-IV [facility] Last Admin: 05/07/16 10:01 Dose: 200 mls/hr Norepinephrine Bitartrate 8, (000 mcg/ Dextrose) 500 mls @ 18.75 mls/hr IV TITR [facility]; 5 MCG/MIN PRN Reason: Protocol Last Titration: 05/07/16 07:37 Dose: 0 mcg/min Levothyroxine Sodium (Synthroid -) 88 mcg PO DAILY@0700 [facility] Last Admin: 05/05/16 15:59 Dose: 88 mcg Levothyroxine Sodium (Synthroid Injection -) 44 mcg IVPUSH DAILY [facility] Last Admin: 05/07/16 11:14 Dose: 44 mcg Mirtazapine (Remeron -) 7.5 mg PO HS [facility] Last Admin: 05/06/16 21:01 Dose: 7.5 mg Silver Sulfadiazine (Silvadene -) 1 applic TP DAILY [facility] Last Admin: 05/06/16 14:00 Dose: 1 applic Sodium Chloride (Normal Saline -) 720 ml IV Q20M PRN PRN Reason: MAP<65mm Hg OR SBP <90 Last Admin: 05/04/16 17:28 Dose: 720 ml - Objective Vital Signs: Vital Signs Temperature 97.2 F L 05/07/16 10:00 Pulse Rate 91 H 05/07/16 10:00 Respiratory Rate 18 05/07/16 11:52 Blood Pressure 148/82 05/07/16 10:00 O2 Sat by Pulse Oximetry (%) 97 05/07/16 09:52 Neck: Yes: Trachea Midline Cardiovascular: Yes: Regular Rate and Rhythm, S1, S2 Respiratory: Yes: CTA Bilaterally, Mechanically Ventilated, Rhonchi Gastrointestinal: Yes: Normal Bowel Sounds, Soft Extremities: Yes: Other (blister in the lower extremity, more on the right than the left.) Neurological: Yes: Unresponsive Labs: CBC, BMP 05/07/16 05:00 05/07/16 05:00 INR, PTT INR 1.22 (0.82-1.09) H 05/05/16 08:10 Problem List - Problems (1) Altered mental status Code(s): R41.82 - ALTERED MENTAL STATUS, UNSPECIFIED Qualifiers: Altered mental status type: transient alteration of awareness Qualified Code(s): R40.4 - Transient alteration of awareness (2) Hyponatremia Code(s): E87.1 - HYPO-OSMOLALITY AND HYPONATREMIA (3) Hypothermia Code(s): T68.XXXA - HYPOTHERMIA, INITIAL ENCOUNTER Qualifiers: Encounter type: initial encounter Qualified Code(s): T68.XXXA - Hypothermia, initial encounter (4) Multiple sclerosis Code(s): G35 - MULTIPLE SCLEROSIS (5) Respiratory failure Code(s): J96.90 - RESPIRATORY FAILURE, UNSP, UNSP W HYPOXIA OR HYPERCAPNIA (6) Sepsis syndrome Code(s): [id number] - (7) Acute on chronic respiratory failure with hypoxia and hypercapnia Code(s): J96.21 - ACUTE AND CHRONIC RESPIRATORY FAILURE WITH HYPOXIA J96.22 - ACUTE AND CHRONIC RESPIRATORY FAILURE WITH HYPERCAPNIA (8) Adrenal insufficiency Code(s): E27.40 - UNSPECIFIED ADRENOCORTICAL INSUFFICIENCY (9) Chronic respiratory failure Code(s): J96.10 - CHRONIC RESPIRATORY FAILURE, UNSP W HYPOXIA OR HYPERCAPNIA (10) Congestion of upper airway Code(s): J98.8 - OTHER SPECIFIED RESPIRATORY DISORDERS (11) Functional quadriplegia Code(s): R53.2 - FUNCTIONAL QUADRIPLEGIA (12) HTN (hypertension) Code(s): I10 - ESSENTIAL (PRIMARY) HYPERTENSION (13) Hypophonia Code(s): R49.8 - OTHER VOICE AND RESONANCE DISORDERS Assessment/Plan 51 y/o female with multiple sclerosis, qudruplegic, Chronic respirtory failure. The urine output is acceptable. Minimal Hypontremia noted. Will watch. Will monitor renal functions with you. Thanks, Zuleika Pereyra MD
[2016-05-07] MEDS ORDERED: HEMOQUE TEST 1 EACH EACH ONE (12:12)
--- NOTE | 2016-05-07 12:25 | PN ---
Teaching Attending Note Name of Resident: Mickey Mandel ATTENDING PHYSICIAN STATEMENT I saw and evaluated the patient. I reviewed the resident's note and discussed the case with the resident. I agree with the resident's findings and plan as documented. SUBJECTIVE: Patient seen and examined in the ICU. More lethargic today. NE was discontinued this AM. AC Mode of vent. Noted rash distribution mostly in the LE. (none on her face, arms, chest, or abdomen) CXR: Some improvement in pulmonary vascular congestion/infiltrate Intake & Output 05/04/16 05/05/16 05/06/16 05/07/16 23:59 23:59 23:59 23:59 Intake Total 3660 2343 2258 532 Output Total 270 3180 2700 900 Balance 3390 -837 -442 -368 Weight 160 lb 0.008 oz 171 lb 5 oz 174 lb 173 lb 1.006 oz Last Vital Signs Temp Pulse Resp BP Pulse Ox 97.2 F L 91 H 18 148/82 97 05/07/16 10:00 05/07/16 10:00 05/07/16 11:52 05/07/16 10:00 05/07/16 09:52 Active Medications Acetaminophen (Tylenol -) 650 mg PO Q6H PRN PRN Reason: FEVER OR PAIN Albuterol/Ipratropium (Duoneb -) 1 amp NEB Q6HPO [facility] Last Admin: 05/07/16 11:04 Dose: 1 amp Amino Acids (Prosource No Carb Liquid Pkt) 30 ml NGT DAILY [facility] Carbamazepine (Tegretol -) 100 mg PO TIDCM [facility] Last Admin: 05/07/16 10:00 Dose: 100 mg Clonazepam (Klonopin -) 0.5 mg PO BID PRN PRN Reason: ANXIETY Enoxaparin Sodium (Lovenox -) 40 mg SQ DAILY [facility] Last Admin: 05/07/16 10:02 Dose: 40 mg Furosemide (Lasix Injection -) 40 mg IVPUSH [employer] [facility] Stop: 05/07/16 14:00 Hydrocortisone Sodium Succinate (Solu-Cortef -) 40 mg IVPB Q8H-IV [facility] Last Admin: 05/07/16 10:04 Dose: 40 mg Sodium Chloride (Normal Saline -) 1,000 mls @ 100 mls/hr IV ASDIR [facility] Last Admin: 05/05/16 13:25 Dose: 100 mls/hr Pantoprazole Sodium (Protonix 40mg Ivpb (Pre-Docked)) 100 mls @ 200 mls/hr IVPB BID [facility] Last Admin: 05/07/16 10:03 Dose: 200 mls/hr Meropenem 500 mg/ Dextrose 100 mls @ 200 mls/hr IVPB Q8H-IV [facility] Last Admin: 05/07/16 10:01 Dose: 200 mls/hr Norepinephrine Bitartrate 8, (000 mcg/ Dextrose) 500 mls @ 18.75 mls/hr IV TITR [facility]ATHERINE; 5 MCG/MIN PRN Reason: Protocol Last Titration: 05/07/16 07:37 Dose: 0 mcg/min Levothyroxine Sodium (Synthroid -) 88 mcg PO DAILY@0700 [facility] Last Admin: 05/05/16 15:59 Dose: 88 mcg Levothyroxine Sodium (Synthroid Injection -) 44 mcg IVPUSH DAILY [facility] Last Admin: 05/07/16 11:14 Dose: 44 mcg Mirtazapine (Remeron -) 7.5 mg PO HS [facility] Last Admin: 05/06/16 21:01 Dose: 7.5 mg Silver Sulfadiazine (Silvadene -) 1 applic TP DAILY [facility] Last Admin: 05/06/16 14:00 Dose: 1 applic Sodium Chloride (Normal Saline -) 720 ml IV Q20M PRN PRN Reason: MAP<65mm Hg OR SBP <90 Last Admin: 05/04/16 17:28 Dose: 720 ml Constitutional: Yes: Lethargic Eyes: Yes: WNL, (-) Pallor HENT: Yes: WNL Neck: Yes: WNL Cardiovascular: Yes: S1, S2 Respiratory: Yes: Trached / Mechanically Ventilated, bibasilar Rhonchi Gastrointestinal: Yes: Normal Bowel Sounds, Soft, Abdomen, Obese. No: Tenderness ...Rectal Exam: Yes: Deferred Renal/: Yes: Raza Present (yellow output) Musculoskeletal: Yes: WNL Extremities: Yes: Cool Edema: Yes Edema: LLE: Trace, RLE: Trace Peripheral Pulses WNL: Yes (+1 bilateral pedal pulses) Integumentary: Yes: (+) Rash in the LE Wound/Incision: Yes: Other (tunneling sacral wound and to left buttocks) Neurological: Yes: Confusion, Lethargy Labs: Laboratory Results - last 24 hr 05/05/16 05/06/16 05/06/16 08:10 05:00 10:30 WBC RBC Hgb Hct MCV MCHC RDW Plt Count MPV Neutrophils % Lymphocytes % Monocytes % Band Neutrophils Puncture Site ABG pH ABG pCO2 at Pt Temp ABG pO2 at Pt Temp ABG HCO3 ABG O2 Sat (Measured) ABG O2 Content ABG Base Excess Howard Test O2 Delivery Device Oxygen Flow Rate Vent Mode Vent Rate Mechanical Rate PEEP Pressure Support Vent Sodium Potassium Chloride Carbon Dioxide Anion Gap BUN Creatinine POC Glucometer Random Glucose Serum Osmolality 262 L Calcium Phosphorus Magnesium Urine Osmolality 159 L D Vancomycin Trough Crossmatch See Detail 05/06/16 05/06/16 05/06/16 14:25 17:52 21:41 WBC RBC Hgb Hct MCV MCHC RDW Plt Count MPV Neutrophils % Lymphocytes % Monocytes % Band Neutrophils Puncture Site ABG pH ABG pCO2 at Pt Temp ABG pO2 at Pt Temp ABG HCO3 ABG O2 Sat (Measured) ABG O2 Content ABG Base Excess Howard Test O2 Delivery Device Oxygen Flow Rate Vent Mode Vent Rate Mechanical Rate PEEP Pressure Support Vent Sodium Potassium Chloride Carbon Dioxide Anion Gap BUN Creatinine POC Glucometer 160.46520 132.34101 158.93339 Random Glucose Serum Osmolality Calcium Phosphorus Magnesium Urine Osmolality Vancomycin Trough Crossmatch 05/07/16 05/07/16 05/07/16 05:00 05:00 05:10 WBC 12.8 H D RBC 2.49 L Hgb 7.9 L D Hct 23.6 L D MCV 94.6 MCHC 33.4 RDW 17.8 H Plt Count 113 L MPV 8.9 Neutrophils % 82.0 D Lymphocytes % 3.0 L D Monocytes % 3.0 L Band Neutrophils 12.0 H D Puncture Site ABG pH ABG pCO2 at Pt Temp ABG pO2 at Pt Temp ABG HCO3 ABG O2 Sat (Measured) ABG O2 Content ABG Base Excess Howard Test O2 Delivery Device Oxygen Flow Rate Vent Mode Vent Rate Mechanical Rate PEEP Pressure Support Vent Sodium 134 L Potassium 3.8 Chloride 98 Carbon Dioxide 26 Anion Gap 10 BUN 21 H Creatinine 0.7 D POC Glucometer 153.90011 Random Glucose 119 H Serum Osmolality Calcium 8.3 L Phosphorus 3.0 D Magnesium 2.1 Urine Osmolality Vancomycin Trough Crossmatch 05/07/16 05/07/16 06:00 07:20 WBC RBC Hgb Hct MCV MCHC RDW Plt Count MPV Neutrophils % Lymphocytes % Monocytes % Band Neutrophils Puncture Site Right radial ABG pH 7.37 ABG pCO2 at Pt Temp 45.7 H ABG pO2 at Pt Temp 132.0 H D ABG HCO3 25.6 ABG O2 Sat (Measured) 98.8 ABG O2 Content 10.5 L ABG Base Excess 0.7 Howard Test Positive O2 Delivery Device Vent Oxygen Flow Rate 40% Vent Mode A/c Vent Rate 14 Mechanical Rate Y PEEP 5.0 Pressure Support Vent 450 Sodium Potassium Chloride Carbon Dioxide Anion Gap BUN Creatinine POC Glucometer Random Glucose Serum Osmolality Calcium Phosphorus Magnesium Urine Osmolality Vancomycin Trough 32.076 H* Crossmatch Assessment/Plan Septic Shock Suspected RLL PNA R/O UTI (?) Component of Autonomic dysfunction causing hypotension (?) Baclofen effect MS with quadraplegia Acute on Chronic respiratory failure / trach and nocturnal vent dependence Seizure disorder Hypothyroidism MDR infections (UTI, sacral wound) AC Mode of vent until more awake -> Trach collar as tolerated Monitor off pressors ABX per ID NGT feeds Monitor daily CXR Aspiration precautions VTE prophylaxis BD TX Derm evaluation for rash Noted Endocrine called for possible Adrenal insufficiency Dr Fox CCTime 35"
[2016-05-07 12:26] LABS: MCH 31.6 pg (25.7-33.7); MEAN CELL VOLUME 95.8 fl (80-96); MEAN PLT VOLUME 8.8 fl (7.5-11.1); PLATELET COUNT 94 K/MM3 (134-434); RDW 17.5 % (11.6-15.6); WHITE BLOOD COUNT 13.9 K/mm3 (4.0-10.0)
--- NOTE | 2016-05-07 13:37 | PN ---
Physical Exam: SUBJECTIVE: Patient seen and examined at bedside in the ICU. She is trached and on vent, mental status remains the same and still does not follow command. Per nurse, no acute event overnight. OBJECTIVE: Trached on mechanical ventilation Vent settings: AC, RR 14, TV 450, FiO2 30, PEEP 5 Off pressor and sedation Central line (triple lumen, IJ) placed, day 3 Vital Signs Period Temp Pulse Resp BP Sys/Morillo Pulse Ox Last 24 Hr 95.5 F-98.8 F 69-109 14-28 108-169/50-108 97-98 GENERAL: The patient is awake, alert, but not aware, does not follow commands RASS = 0 EYES: pupils equal and reactive to light ENT: NG tube in place LUNGS: lound b/l rhonchi HEART: distant heart sounds ABDOMEN: Soft, nontender, nondistended, normoactive bowel sounds EXTREMITIES: large circular rashes on bilateral lower extremities, dry blisters , no edema : perera in place ABG Results ABG pH 7.37 (7.35-7.45) 05/07/16 07:20 ABG pCO2 at Pt Temp 45.7 mmHg (35-45) H 05/07/16 07:20 ABG pO2 at Pt Temp 132.0 mmHg (80-100) H D 05/07/16 07:20 ABG HCO3 25.6 meq/L (22-26) 05/07/16 07:20 ABG O2 Sat (Measured) 98.8 % (90-98.9) 05/07/16 07:20 ABG O2 Content 10.5 % vol (15-22) L 05/07/16 07:20 ABG Base Excess 0.7 meq/l (-2-2) 05/07/16 07:20 CBCD WBC 13.9 K/mm3 (4.0-10.0) H 05/07/16 12:10 RBC 2.58 M/mm3 (3.60-5.2) L 05/07/16 12:10 Hgb 8.2 GM/dL (10.7-15.3) L 05/07/16 12:10 Hct 24.7 % (32.4-45.2) L 05/07/16 12:10 MCV 95.8 fl (80-96) 05/07/16 12:10 MCHC 33.0 g/dl (32.0-36.0) 05/07/16 12:10 RDW 17.5 % (11.6-15.6) H 05/07/16 12:10 Plt Count 94 K/MM3 (134-434) L 05/07/16 12:10 MPV 8.8 fl (7.5-11.1) 05/07/16 12:10 CMP Sodium 134 mmol/L (136-145) L 05/07/16 05:00 Potassium 3.8 mmol/L (3.5-5.1) 05/07/16 05:00 Chloride 98 mmol/L (98-107) 05/07/16 05:00 Carbon Dioxide 26 mmol/L (21-32) 05/07/16 05:00 Anion Gap 10 (8-16) 05/07/16 05:00 BUN 21 mg/dL (7-18) H 05/07/16 05:00 Creatinine 0.7 mg/dL (0.55-1.02) D 05/07/16 05:00 Creat Clearance w eGFR > 60 (>60) 05/05/16 05:10 Calcium 8.3 mg/dL (8.5-10.1) L 05/07/16 05:00 Total Bilirubin 0.2 mg/dL (0.2-1.0) D 05/05/16 05:10 AST 30 U/L (15-37) D 05/05/16 05:10 ALT 35 U/L (12-78) D 05/05/16 05:10 Alkaline Phosphatase 199 U/L (45-117) H D 05/05/16 05:10 Total Protein 3.7 g/dl (6.4-8.2) L D 05/05/16 05:10 Albumin 1.3 g/dl (3.4-5.0) L D 05/05/16 05:10 Urine Test Results Urine Color Yellow 05/04/16 13:52 Urine Appearance Turbid 05/04/16 13:52 Urine pH 5.0 (5.0-8.0) 05/04/16 13:52 Ur Specific [place] 1.016 (1.001-1.035) 05/04/16 13:52 Urine Protein 2+ (NEGATIVE) H 05/04/16 13:52 Urine Glucose (UA) 1+ (NEGATIVE) H 05/04/16 13:52 Urine Ketones Negative (NEGATIVE) 05/04/16 13:52 Urine Blood Negative (NEGATIVE) 05/04/16 13:52 Urine Nitrite Negative (NEGATIVE) 05/04/16 13:52 Urine Bilirubin Negative (NEGATIVE) 05/04/16 13:52 Ur Leukocyte Esterase 3+ (NEGATIVE) H 05/04/16 13:52 Urine RBC 15 /hpf (0-3) 05/04/16 13:52 Urine WBC 537 /hpf (3-5) 05/04/16 13:52 Ur Epithelial Cells Rare /hpf (FEW) 05/04/16 13:52 Urine Bacteria Many /hpf (NONE SEEN) 05/04/16 13:52 Intake & Output 05/04/16 05/05/16 05/06/16 05/07/16 23:59 23:59 23:59 23:59 Intake Total 3660 2343 2258 532 Output Total 270 3180 2700 900 Balance 3390 -837 -442 -368 Weight 72.575 kg 77.706 kg 78.925 kg 78.5 kg Active Medications Generic Name Dose Route Start Last Admin Trade Name Freq PRN Reason Stop Dose Admin Acetaminophen 650 mg 05/04/16 21:42 Tylenol - PO Q6H PRN FEVER OR PAIN Albuterol/Ipratropium 1 amp 05/05/16 12:00 05/07/16 11:04 Duoneb - NEB 1 amp Q6HPO [facility] Administration Amino Acids 30 ml 05/07/16 10:00 Prosource No Carb Liquid Pkt NGT DAILY [facility] Carbamazepine 100 mg 05/05/16 08:00 05/07/16 10:00 Tegretol - PO 100 mg TIDCM [facility] Administration Clonazepam 0.5 mg 05/04/16 21:41 Klonopin - PO BID PRN ANXIETY Enoxaparin Sodium 40 mg 05/05/16 16:45 05/07/16 10:02 Lovenox - SQ 40 mg DAILY [facility] Administration Furosemide 40 mg 05/07/16 09:00 Lasix Injection - IVPUSH 05/07/16 14:00 BAND CUTTER [facility] Hydrocortisone Sodium Succinate 40 mg 05/06/16 10:00 05/07/16 10:04 Solu-Cortef - IVPB 40 mg Q8H-IV [facility] Administration Sodium Chloride 1,000 mls @ 100 mls/hr 05/05/16 02:30 05/05/16 13:25 Normal Saline - IV 100 mls/hr ASDIR [facility] Administration Pantoprazole Sodium 100 mls @ 200 mls/hr 05/05/16 10:00 05/07/16 10:03 Protonix 40mg Ivpb (Pre-Docked) IVPB 200 mls/hr BID [facility] Administration Meropenem 500 mg/ Dextrose 100 mls @ 200 mls/hr 05/05/16 11:00 05/07/16 10:01 IVPB 200 mls/hr Q8H-IV [facility] Administration Norepinephrine Bitartrate 8, 500 mls @ 18.75 mls/hr 05/05/16 13:00 05/07/16 07: 37 000 mcg/ Dextrose IV 0 mcg/min TITR [facility] Titration Protocol 5 MCG/MIN Levothyroxine Sodium 88 mcg 05/05/16 07:00 05/05/16 15:59 Synthroid - PO 88 mcg DAILY@0700 [facility] Administration Levothyroxine Sodium 44 mcg 05/06/16 10:00 05/07/16 11:14 Synthroid Injection - IVPUSH 44 mcg DAILY [facility] Administration Mirtazapine 7.5 mg 05/04/16 22:00 05/06/16 21:01 Remeron - PO 7.5 mg HS [facility] Administration Silver Sulfadiazine 1 applic 05/05/16 11:45 05/06/16 14:00 Silvadene - TP 1 applic DAILY [facility] Administration Sodium Chloride 720 ml 05/04/16 12:07 05/04/16 17:28 Normal Saline - IV 720 ml Q20M PRN Administration MAP<65mm Hg OR SBP <90 Microbiology 05/06/16 13:50 Sputum - Endotrachea Suction/Ventilator Sputum Culture - Preliminary Yeast Like Organism 05/05/16 16:00 Urine - Urine - Catheterized Urine Culture - Final NO GROWTH OBTAINED 05/04/16 13:15 Blood - Peripheral Venous Blood Culture - Preliminary NO GROWTH OBTAINED AFTER 48 HOURS, INCUBATION TO CONTINUE FOR 3 DAYS. 05/04/16 13:20 Blood - Peripheral Venous Blood Culture - Preliminary NO GROWTH OBTAINED AFTER 48 HOURS, INCUBATION TO CONTINUE FOR 3 DAYS. Imaging: CXR 05/07: Status post NG tube insertion. A portable chest x-ray semierect upright. Since the prior chest x-ray dated 05/06/2016, tracheostomy tube and right internal jugular central line are again seen in satisfactory position. A nasogastric tube is not visualized. The heart remains within normal limits in size with bibasal atelectatic changes/infiltrates, left more than right and probable small left pleural effusion CXR : No significant change with NG tube in place. CXR 05/05: A single frontal portable projection of the chest at 12:56 PM is submitted. Since a prior study of earlier in the day, a right-sided triple- lumen catheter has been placed via the internal jugular vein with distal tip in the region of the SVC. No pneumothorax is identified. A tracheostomy tube remains in place. Bilateral pleural effusions are also reidentified. Right- sided triple-lumen catheter placement as described above ASSESSMENT/PLAN: 51 yo F h/o HTN, multiple sclerosis with quadraplegia, chronic urinary retention and chronic respiratory insufficiency, seizure disorder and hypothyroidism admitted to the ICU for baclofen toxicity vs. sepsis 2/2 UTI. Patient is trached and on venti-mask during the day and on vent at night. She had multiple admissions for MDR infections such as UTI and decubitus ulcer in the sacral. Neuro: AMS 2/2 baclofen toxicity vs. UTI - Baseline: AAO x 3, talks, eats - Mental status remains the same - Baclofen level still pending - Cont. AED and zolof - Neuro check Q2H Pulm: Chronic respiratory insufficiency 2/2 ?MS - Trached on vent: see settings above - Maintain O2 Sat. > 88% - Nebulizers PRN - Daily ABG and CXR ID: Sepsis 2/2 UTI, Complicated vs Sacral decubitus ulcers - Indwelling perera catheter - H/O MDR infections: UTI, PNA, shingles - WBC 537 on UA - WBC trending down on CBC and remains afrebile - Routine wound care - Final urine and blood cultures are negative - Redosed gentamicin and remains on Meropenem only Renal/: UTI in the setting of chronic urinary retention - Fluid held due to fluid overload - Maintain perera for urinary retention Heme: Macrocytic Anemia - Baseline HGB @ 8.6-10 - Transfuse 1 unit of PRBC * recheck CBC Cardiac: Hypotension - Off levophed - Maintain MAP > 65% - Hold all anti-BP meds Endo: Hypothyrodism and adrenal insufficiency - Normal TSH and free T4 - Cont. synthroid - Cortisol level normal Derm: Lower extremity purpura 2/2 drug allergy vs. skin irritation - Only seen in b/l extremities - Not painful, no discharge, not raised - Derm consult FEN - Fluid held - Cont. to monitor lytes - TwoCal with high concentration and no water added - Prophylaxis - DVT: lovenox 40mg QD - GI: on PPI Disposition - Spoke to Dr. Conroy regarding baclofen toxicity, will hold off adjusting pump dosing for now - Continues to require inpatient ICU care Code status - Full code Visit type - Emergency Visit Emergency Visit: No - New Patient This patient is new to me today: No - Critical Care Critical Care patient: Yes Total Critical Care Time (in minutes): 45 Critical Care Statement: The care of this patient involved high complexity decision making to prevent further life threatening deterioration of the patient 's condition and/or to evalute & treat vital organ system(s) failure or risk of failure.
[2016-05-07] MEDS: NOREPINEPHRINE BITARTRATE 8,000 MCG in DEXTROSE 5%-WATER - 492 ML IV SCH (18:15)
[2016-05-07] MEDS: SILVER SULFADIAZINE 1% TOP CREAM 50 GM JAR TP SCH (18:24)
--- NOTE | 2016-05-07 18:31 | CONSULT ---
Consult - text type - Consultation Consultation Note: Dermatology chart reviewed and patient examined Called to see patient well known to me with previous drug eruption eruption now admitted for sepsis and change in mental status. patient developed bullae and erythema on LE after edema developed on her thighs and legs. lesions are due to underlying edema with resulting decrease in circulation . discuss wound care with patients nurse. will apply bactroban to open areas after wound care. there are no lesions noted on areas above the thighs.will follow as needed. Discussed with patients sister and critical care educator.
[2016-05-07] MEDS: MIRTAZAPINE 15 MG TABLET (FP) PO SCH ×2 (21:58→22:01)
[2016-05-07] MEDS: MUPIROCIN 2% TOPICAL OINTMENT 22 GM TUBE TP SCH (21:59)
[2016-05-07] MEDS ORDERED: SODIUM CHLORIDE 1,000 ML IV ONE (22:00)
[2016-05-07] MEDS ORDERED: hydrALAZINE HCL 20 MG/ML VIAL IVPUSH ONE (23:07)
[2016-05-08] MEDS: MEROPENEM 500 MG in DEXTROSE 5%-WATER - 100 ML IVPB SCH ×2 (01:29→11:42)
[2016-05-08] MEDS: HYDROCORTISONE SOD SUCCINATE 100 MG/2 ML VIAL IVPB SCH ×3 (01:29→17:42)
[2016-05-08] MEDS: SODIUM CHLORIDE 1,000 ML IV SCH (01:32)
[2016-05-08] MEDS: ALBUTEROL SO4 2.5/IPRATROPIUM 0.5 INH SOL 3 ML VIAL.NEB. NEB SCH ×4 (06:00→23:35)
[2016-05-08 06:09] LABS: ARTERIAL BLD GAS O2 SATURATION 98.3 % (90-98.9); ARTERIAL BLOOD GAS BASE EXCESS 5.1 meq/l (-2-2); ARTERIAL BLOOD GAS HCO3 30.8 meq/L (22-26); ARTERIAL BLOOD GAS pH 7.37 (7.35-7.45)
[2016-05-08 06:11] LABS: ALLENS TEST POSITIVE; ART PUNCT SITE RIGHT RADIAL; LPM/O2% 60%; MECH. VENT. Y; PT. ON O2? YES; TYPE OF O2 VENT; VENT RATE 14; VT/PRESS 450
[2016-05-08] MEDS: LEVOTHYROXINE NA 88 MCG TABLET (FP) PO SCH (06:28)
--- NOTE | 2016-05-08 07:18 | PN ---
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, Physician Chief Complaint: ID Increased O2 requirements overnight on the vent Vancomycin and Meropenem and daily Gent for sepsis Day 6 antibiotics Seen by Brooke cotton - Current Medication List Current Medications: Active Medications Acetaminophen (Tylenol -) 650 mg PO Q6H PRN PRN Reason: FEVER OR PAIN Albuterol/Ipratropium (Duoneb -) 1 amp NEB Q6HPO [facility] Last Admin: 05/07/16 23:10 Dose: 1 amp Amino Acids (Prosource No Carb Liquid Pkt) 30 ml NGT DAILY [facility] Carbamazepine (Tegretol -) 100 mg PO TIDCM [facility] Last Admin: 05/07/16 18:22 Dose: 100 mg Dexamethasone (Decadron -) 1 mg PO ONCE ONE Stop: 05/08/16 11:01 Enoxaparin Sodium (Lovenox -) 40 mg SQ DAILY [facility] Hydrocortisone Sodium Succinate (Solu-Cortef -) 40 mg IVPB Q8H-IV [facility] Last Admin: 05/08/16 01:29 Dose: 40 mg Sodium Chloride (Normal Saline -) 1,000 mls @ 100 mls/hr IV ASDIR [facility] Last Admin: 05/08/16 01:32 Dose: Not Given Meropenem 500 mg/ Dextrose 100 mls @ 200 mls/hr IVPB Q8H-IV [facility] Last Admin: 05/08/16 01:29 Dose: 200 mls/hr Norepinephrine Bitartrate 8, (000 mcg/ Dextrose) 500 mls @ 18.75 mls/hr IV TITR CATHERINE; 5 MCG/MIN PRN Reason: Protocol Last Admin: 05/07/16 18:15 Dose: Not Given Pantoprazole Sodium (Protonix 40mg Ivpb (Pre-Docked)) 100 mls @ 200 mls/hr IVPB BID [facility] Last Admin: 05/07/16 22:01 Dose: Not Given Levothyroxine Sodium (Synthroid Injection -) 44 mcg IVPUSH DAILY [facility] Last Admin: 05/07/16 11:14 Dose: 44 mcg Levothyroxine Sodium (Synthroid -) 88 mcg PO DAILY@0700 [facility] Last Admin: 05/08/16 06:28 Dose: 88 mcg Mirtazapine (Remeron -) 7.5 mg PO HS [facility] Last Admin: 05/07/16 22:01 Dose: Not Given Mupirocin (Bactroban 2% Ointment -) 1 applic TP BID [facility] Last Admin: 05/07/16 21:59 Dose: 1 applic Silver Sulfadiazine (Silvadene -) 1 applic TP DAILY [facility] Last Admin: 05/07/16 18:24 Dose: 1 applic Sodium Chloride (Normal Saline -) 720 ml IV Q20M PRN PRN Reason: MAP<65mm Hg OR SBP <90 Last Admin: 05/04/16 17:28 Dose: 720 ml - Objective Vital Signs: Vital Signs Temperature 99 F 05/08/16 01:00 Pulse Rate 104 H 05/08/16 01:00 Respiratory Rate 17 05/08/16 01:40 Blood Pressure 131/63 05/08/16 01:00 O2 Sat by Pulse Oximetry (%) 99 05/08/16 01:40 Neck: Yes: Other (Tracheostomy) Cardiovascular: Yes: S1, S2 Gastrointestinal: Yes: Soft. No: Tenderness Wound/Incision: Yes: Other (blisters LE with erythema thighs LE) Labs: CBC, BMP 05/07/16 12:10 05/07/16 05:00 INR, PTT INR 1.22 (0.82-1.09) H 05/05/16 08:10 Problem List - Problems (1) Sepsis syndrome Code(s): LAC2310 - (2) Urinary tract infection Code(s): N39.0 - URINARY TRACT INFECTION, SITE NOT SPECIFIED (3) Multiple sclerosis Code(s): G35 - MULTIPLE SCLEROSIS (4) Respiratory failure Code(s): J96.90 - RESPIRATORY FAILURE, UNSP, UNSP W HYPOXIA OR HYPERCAPNIA (5) Multiple drug resistant organism (MDRO) culture positive Code(s): Z16.24 - RESISTANCE TO MULTIPLE ANTIBIOTICS Assessment/Plan Microbiology 05/06/16 13:50 Sputum - Endotrachea Suction/Ventilator Gram Stain - Final 05/04/16 13:52 Urine - Urine - Catheterized Urine Culture - Final Contaminated: Please Repeat 05/06/16 13:50 Sputum - Endotrachea Suction/Ventilator Sputum Culture - Preliminary Yeast Like Organism 05/04/16 13:20 Blood - Peripheral Venous Blood Culture - Preliminary NO GROWTH OBTAINED AFTER 72 HOURS, INCUBATION TO CONTINUE FOR 2 DAYS. 05/04/16 13:15 Blood - Peripheral Venous Blood Culture - Preliminary NO GROWTH OBTAINED AFTER 72 HOURS, INCUBATION TO CONTINUE FOR 2 DAYS. Laboratory Tests 05/07/16 05/07/16 05/08/16 05:00 12:10 06:00 WBC 13.9 H Hgb 8.2 L Hct 24.7 L Plt Count 94 L ABG pH 7.37 ABG pCO2 at Pt Temp 54.0 H ABG pO2 at Pt Temp 118.0 H Oxygen Flow Rate 60% BUN 21 H Creatinine 0.7 D Assessment Sepsis syndrome urinary source plus pneumonia possible Respiratory failure increasing O2 requirements Multiple sclerosis Resistant organisms by history Drug reaction LE Pressure ulcers( blisters) Plan Continue Meropenem andother 24-48hours Critical care time spent wiht pt 37 minutes Anam PATIÑO
[2016-05-08 08:14] LABS: MCH 31.2 pg (25.7-33.7); MEAN CELL VOLUME 94.7 fl (80-96); MEAN PLT VOLUME 8.5 fl (7.5-11.1); PLATELET COUNT 127 K/MM3 (134-434); RDW 18.4 % (11.6-15.6); WHITE BLOOD COUNT 20.2 K/mm3 (4.0-10.0)
--- NOTE | 2016-05-08 08:23 | PN ---
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, Physician History of Present Illness: more lethargic - Current Medication List Current Medications: Active Medications Acetaminophen (Tylenol -) 650 mg PO Q6H PRN PRN Reason: FEVER OR PAIN Albuterol/Ipratropium (Duoneb -) 1 amp NEB Q6HPO [facility] Last Admin: 05/08/16 06:00 Dose: 1 amp Amino Acids (Prosource No Carb Liquid Pkt) 30 ml NGT DAILY [facility] Dexamethasone (Decadron -) 1 mg PO ONCE ONE Stop: 05/08/16 11:01 Enoxaparin Sodium (Lovenox -) 40 mg SQ DAILY [facility] Hydrocortisone Sodium Succinate (Solu-Cortef -) 40 mg IVPB Q8H-IV [facility] Last Admin: 05/08/16 01:29 Dose: 40 mg Sodium Chloride (Normal Saline -) 1,000 mls @ 100 mls/hr IV ASDIR [facility] Last Admin: 05/08/16 01:32 Dose: Not Given Meropenem 500 mg/ Dextrose 100 mls @ 200 mls/hr IVPB Q8H-IV [facility] Last Admin: 05/08/16 01:29 Dose: 200 mls/hr Norepinephrine Bitartrate 8, (000 mcg/ Dextrose) 500 mls @ 18.75 mls/hr IV TITR CATHERINE; 5 MCG/MIN PRN Reason: Protocol Last Admin: 05/07/16 18:15 Dose: Not Given Pantoprazole Sodium (Protonix 40mg Ivpb (Pre-Docked)) 100 mls @ 200 mls/hr IVPB BID [facility] Last Admin: 05/07/16 22:01 Dose: Not Given Levothyroxine Sodium (Synthroid -) 88 mcg PO DAILY@0700 [facility] Last Admin: 05/08/16 06:28 Dose: 88 mcg Mirtazapine (Remeron -) 7.5 mg PO HS [facility] Last Admin: 05/07/16 22:01 Dose: Not Given Mupirocin (Bactroban 2% Ointment -) 1 applic TP BID [facility] Last Admin: 05/07/16 21:59 Dose: 1 applic Silver Sulfadiazine (Silvadene -) 1 applic TP DAILY [facility] Last Admin: 05/07/16 18:24 Dose: 1 applic Sodium Chloride (Normal Saline -) 720 ml IV Q20M PRN PRN Reason: MAP<65mm Hg OR SBP <90 Last Admin: 05/04/16 17:28 Dose: 720 ml - Objective Vital Signs: Vital Signs Temperature 100.4 F H 05/08/16 05:00 Pulse Rate 117 H 05/08/16 06:00 Respiratory Rate 16 05/08/16 06:23 Blood Pressure 146/70 05/08/16 06:00 O2 Sat by Pulse Oximetry (%) 99 05/08/16 01:40 Cardiovascular: Yes: S1, S2 Respiratory: Yes: Diminished, Mechanically Ventilated, Rhonchi Gastrointestinal: Yes: Normal Bowel Sounds, Soft Edema: No Neurological: Yes: Lethargy Labs: INR, PTT INR 1.22 (0.82-1.09) H 05/05/16 08:10 Problem List - Problems (1) Sepsis Assessment/Plan: IV ABX CULTURES ID CONSUULT Code(s): A41.9 - SEPSIS, UNSPECIFIED ORGANISM Qualifiers: Sepsis type: sepsis due to unspecified organism Qualified Code(s): A41.9 - Sepsis, unspecified organism (2) Altered mental status Assessment/Plan: DUE TO ABOVE LETHARGIC--R/O BACLOFEN TOXICITY NEURO Code(s): R41.82 - ALTERED MENTAL STATUS, UNSPECIFIED Qualifiers: Altered mental status type: transient alteration of awareness Qualified Code(s): R40.4 - Transient alteration of awareness (3) Hyponatremia Assessment/Plan: IMPROVED IVF MONITOR Code(s): E87.1 - HYPO-OSMOLALITY AND HYPONATREMIA (4) Multiple sclerosis Assessment/Plan: NEURO Code(s): G35 - MULTIPLE SCLEROSIS (5) Adrenal insufficiency Assessment/Plan: IV SOLUCORTEF ENDO CONSULT Code(s): E27.40 - UNSPECIFIED ADRENOCORTICAL INSUFFICIENCY (6) Anemia Assessment/Plan: REPEAT PENDING S/P TRANSFUSION Code(s): D64.9 - ANEMIA, UNSPECIFIED Qualifiers: Other causes of anemia: chronic disease, other (7) Pneumonia Assessment/Plan: IV ABX CXR NOTED--LLL Code(s): J18.9 - PNEUMONIA, UNSPECIFIED ORGANISM Qualifiers: Pneumonia type: pneumonia due to methicillin-resistant Staphylococcus aureus (MRSA) (8) Presence of intrathecal baclofen pump Assessment/Plan: PER NEURO Code(s): Z98.89 - OTHER SPECIFIED POSTPROCEDURAL STATES * DO NOT USE *
[2016-05-08] MEDS: D5-1/2NS+20 MEQ KCL - 1,000 ML IV SCH (09:06)
[2016-05-08 09:27] LABS: PLATELET ESTIMATE SLT DECREASED (NORMAL)
[2016-05-08 09:28] LABS: TOXIC GRANULATION 3+
[2016-05-08] MEDS ORDERED: PT OWN MED DRAWER 7, Y5N ONE ×7 (09:42→20:45)
[2016-05-08] MEDS: PANTOPRAZOLE SODIUM 100 ML IVPB SCH ×2 (09:44→21:14)
[2016-05-08] MEDS: AMINO ACIDS/PROTEIN HYDROLYS 30 ML LIQUID.PKT NGT SCH (09:44)
[2016-05-08] MEDS: ENOXAPARIN NA (PORCINE) 40 MG/0.4 ML DISP.SYRIN SQ SCH (09:44)
[2016-05-08] MEDS: SILVER SULFADIAZINE 1% TOP CREAM 50 GM JAR TP SCH (09:45)
[2016-05-08] MEDS ORDERED: DEXAMETHASONE 0.5 MG TABLET PO ONE ×2 (11:00→23:00)
[2016-05-08] MEDS: MUPIROCIN 2% TOPICAL OINTMENT 22 GM TUBE TP SCH ×2 (11:00→21:16)
[2016-05-08 12:02] LABS: ALBUMIN 1.9 g/dl (3.4-5.0); ANION GAP 9 (8-16); BILIRUBIN,TOTAL 0.3 mg/dL (0.2-1.0); CALCIUM 8.2 mg/dL (8.5-10.1); CO2 31 mmol/L (21-32); CREATININE 0.6 mg/dL (0.55-1.02); GLUCOSE,RANDOM 144 mg/dL (74-106); SGOT/AST 18 U/L (15-37); SGPT/ALT 33 U/L (12-78); TOT PROT 5.7 g/dl (6.4-8.2)
[2016-05-08 12:03] LABS: ALK PHOS 256 U/L (45-117)
--- NOTE | 2016-05-08 12:13 | PN ---
Teaching Attending Note Name of Resident: Mickey Mandel ATTENDING PHYSICIAN STATEMENT I saw and evaluated the patient. I reviewed the resident's note and discussed the case with the resident. I agree with the resident's findings and plan as documented. SUBJECTIVE: Patient seen and examined in the ICU. Lethargic but arousable. NE was discontinued this AM. AC Mode of vent. Noted rash distribution mostly in the LE. (none on her face, arms, chest, or abdomen) CXR: Rotated / LLL infiltrate Intake & Output 05/05/16 05/06/16 05/07/16 05/08/16 23:59 23:59 23:59 23:59 Intake Total 2343 2258 1312 450 Output Total 3180 2700 3600 1999 Balance -842 -442 -2288 -7230 Weight 171 lb 5 oz 174 lb 173 lb 1.006 oz 162 lb 4 oz Last Vital Signs Temp Pulse Resp BP Pulse Ox 99.1 F 96 H 16 131/63 93 L 05/08/16 11:00 05/08/16 11:00 05/08/16 11:00 05/08/16 11:00 05/08/16 10:07 Active Medications Acetaminophen (Tylenol -) 650 mg PO Q6H PRN PRN Reason: FEVER OR PAIN Albuterol/Ipratropium (Duoneb -) 1 amp NEB Q6HPO [facility] Last Admin: 05/08/16 06:00 Dose: 1 amp Amino Acids (Prosource No Carb Liquid Pkt) 30 ml NGT DAILY [facility] Last Admin: 05/08/16 09:44 Dose: 30 ml Enoxaparin Sodium (Lovenox -) 40 mg SQ DAILY [facility] Last Admin: 05/08/16 09:44 Dose: 40 mg Hydrocortisone Sodium Succinate (Solu-Cortef -) 40 mg IVPB Q8H-IV [facility] Last Admin: 05/08/16 10:28 Dose: 40 mg Meropenem 500 mg/ Dextrose 100 mls @ 200 mls/hr IVPB Q8H-IV [facility] Last Admin: 05/08/16 11:42 Dose: 200 mls/hr Norepinephrine Bitartrate 8, (000 mcg/ Dextrose) 500 mls @ 18.75 mls/hr IV TITR [facility]ATHERINE; 5 MCG/MIN PRN Reason: Protocol Last Admin: 05/07/16 18:15 Dose: Not Given Pantoprazole Sodium (Protonix 40mg Ivpb (Pre-Docked)) 100 mls @ 200 mls/hr IVPB BID [facility] Last Admin: 05/08/16 09:44 Dose: 200 mls/hr Potassium Chloride/Dextrose/Sod Cl (D5-1/2ns+20 Meq Kcl -) 1,000 mls @ 75 mls/ hr IV ASDIR [facility] Last Admin: 05/08/16 09:06 Dose: 75 mls/hr Levothyroxine Sodium (Synthroid -) 88 mcg PO DAILY@0700 [facility] Last Admin: 05/08/16 06:28 Dose: 88 mcg Mirtazapine (Remeron -) 7.5 mg PO HS [facility] Last Admin: 05/07/16 22:01 Dose: Not Given Mupirocin (Bactroban 2% Ointment -) 1 applic TP BID [facility] Last Admin: 05/08/16 11:00 Dose: 1 applic Silver Sulfadiazine (Silvadene -) 1 applic TP DAILY [facility] Last Admin: 05/08/16 09:45 Dose: 1 applic Sodium Chloride (Normal Saline -) 720 ml IV Q20M PRN PRN Reason: MAP<65mm Hg OR SBP <90 Last Admin: 05/04/16 17:28 Dose: 720 ml Constitutional: Yes: Lethargic but arousable Eyes: Yes: WNL, (-) Pallor HENT: Yes: WNL Neck: Yes: WNL Cardiovascular: Yes: S1, S2 Respiratory: Yes: Trached / Mechanically Ventilated, bibasilar Rhonchi Gastrointestinal: Yes: Normal Bowel Sounds, Soft, Abdomen, Obese. No: Tenderness ...Rectal Exam: Yes: Deferred Renal/: Yes: Raza Present (yellow output) Musculoskeletal: Yes: WNL Extremities: Yes: Cool Edema: Yes Edema: LLE: Trace, RLE: Trace Peripheral Pulses WNL: Yes (+1 bilateral pedal pulses) Integumentary: Yes: (+) Rash in the LE Wound/Incision: Yes: Other (tunneling sacral wound and to left buttocks) Neurological: Yes: Confusion, Lethargy Labs: Laboratory Results - last 24 hr 05/05/16 05/07/16 05/08/16 08:10 12:10 05:35 WBC 13.9 H RBC 2.58 L Hgb 8.2 L Hct 24.7 L MCV 95.8 MCHC 33.0 RDW 17.5 H Plt Count 94 L MPV 8.8 Neutrophils % Lymphocytes % Monocytes % Band Neutrophils Differential Comment Toxic Granulation Platelet Estimate Puncture Site ABG pH ABG pCO2 at Pt Temp ABG pO2 at Pt Temp ABG HCO3 ABG O2 Sat (Measured) ABG O2 Content ABG Base Excess Howard Test O2 Delivery Device Oxygen Flow Rate Vent Mode Vent Rate Mechanical Rate PEEP Pressure Support Vent Sodium 140 Potassium 3.4 L Chloride 100 Carbon Dioxide 31 Anion Gap 9 BUN 24 H Creatinine 0.6 Creat Clearance w eGFR > 60 Random Glucose 144 H D Calcium 8.2 L Total Bilirubin 0.3 D AST 18 D ALT 33 Alkaline Phosphatase 256 H D Total Protein 5.7 L D Albumin 1.9 L D Blood Type O POSITIVE Antibody Screen Negative Crossmatch See Detail 05/08/16 05/08/16 05:35 06:00 WBC 20.2 H D RBC 3.02 L Hgb 9.4 L D Hct 28.6 L D MCV 94.7 MCHC 33.0 RDW 18.4 H Plt Count 127 L D MPV 8.5 Neutrophils % 92.0 H Lymphocytes % 3.0 L Monocytes % 1.0 L Band Neutrophils 1.0 D Differential Comment Manual diff done Toxic Granulation 3+ Platelet Estimate Slt decreased Puncture Site Right radial ABG pH 7.37 ABG pCO2 at Pt Temp 54.0 H ABG pO2 at Pt Temp 118.0 H ABG HCO3 30.8 H ABG O2 Sat (Measured) 98.3 ABG O2 Content 13.9 L ABG Base Excess 5.1 H Howard Test Positive O2 Delivery Device Vent Oxygen Flow Rate 60% Vent Mode Ac Vent Rate 14 Mechanical Rate Y PEEP 5.0 Pressure Support Vent 450 Sodium Potassium Chloride Carbon Dioxide Anion Gap BUN Creatinine Creat Clearance w eGFR Random Glucose Calcium Total Bilirubin AST ALT Alkaline Phosphatase Total Protein Albumin Blood Type Antibody Screen Crossmatch Assessment/Plan Septic Shock Suspected RLL PNA TI (?) Component of Autonomic dysfunction causing hypotension MS with quadraplegia Acute on Chronic respiratory failure / trach and nocturnal vent dependence Seizure disorder Hypothyroidism MDR infections (UTI, sacral wound) Trach collar as tolerated Monitor off pressors ABX per ID NGT feeds Monitor CXR Aspiration precautions VTE prophylaxis BD TX Derm evaluation for rash noted Dr Fox CCTime 35"
--- NOTE | 2016-05-08 12:14 | CONSULT ---
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 Severe tetraplegia due to advanced cervical plaque. S/P Baclofen pump for chronic pain and flexor spasms and Tegretol for Trigeminal Neuralgia. In recent years has had declining respiratory reserve and is s/p tracheostomy about 2 years ago. Now requires ventilatory support each night and periodically, during the day for fatigue. Multiple, recurrent, hospitalizations for UTI, Urosepsis, usually presenting with increasing weakness and lethargy. Now admitted with the same and U/A revealing 537 WBC's. Improving on antibiotics. Admission H/H =5.7/17.7. s/p transfusions. WBC+22.9 K Exam: S/P tracheostomy. On ventilator. + spontaneous respirations. NEUROLOGICAL: Lethargic but arousable to name. Recognizes me. Ox [facility] Markedly reduced vision with gaze-directed nystagmus. Tetraplegia. Areflexic. IMP: Advanced Multiple Sclerosis with chronic tetraplegia and blindness. More recent respiratory weakness Now worsened by toxic-metabolic insult (ie: recurring urosepsis). Suggest: Continue antibiotics, hydration, ventilatory support. W/u anemia and possible source of blood loss. Continue tegretol. No need to decrease intrthecal Baclofen at this time. Thank you very much, Rom Conroy MD
[2016-05-08] MEDS: NOREPINEPHRINE BITARTRATE 8,000 MCG in DEXTROSE 5%-WATER - 492 ML IV SCH (13:00)
--- NOTE | 2016-05-08 13:03 | PN ---
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 (short form) - Note 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: Renal Followup for Hyponatremia Pt seen and examined in the ICU on Vent via trach family at the bedside Vital Signs Temperature 99.4 F 05/08/16 13:00 Pulse Rate 88 05/08/16 13:00 Respiratory Rate 16 05/08/16 13:00 Blood Pressure 133/68 05/08/16 12:00 O2 Sat by Pulse Oximetry (%) 93 L 05/08/16 10:07 Intake & Output 05/05/16 05/06/16 05/07/16 05/08/16 23:59 23:59 23:59 23:59 Intake Total 2343 2258 1312 450 Output Total 3180 2700 3600 1999 Balance -873 -442 -2288 -9130 Weight 171 lb 5 oz 174 lb 173 lb 1.006 oz 162 lb 4 oz Gen: Awake on Trach Collar HEENT: Trach in place, no JVD CVS: RRR, No M/R Lungs: Dec BS left lung Abd: Soft NT/ND Ext: no edema, clubbing or cyanosis : perera in place CBC, BMP 05/08/16 05:35 05/08/16 05:35 Current Medications Acetaminophen (Tylenol -) 650 mg PO Q6H PRN PRN Reason: FEVER OR PAIN Albuterol/Ipratropium (Duoneb -) 1 amp NEB Q6HPO CATHERINE Last Admin: 05/08/16 06:00 Dose: 1 amp Amino Acids (Prosource No Carb Liquid Pkt) 30 ml NGT DAILY CATHERINE Last Admin: 05/08/16 09:44 Dose: 30 ml Enoxaparin Sodium (Lovenox -) 40 mg SQ DAILY CATHERINE Last Admin: 05/08/16 09:44 Dose: 40 mg Hydrocortisone Sodium Succinate (Solu-Cortef -) 40 mg IVPB Q8H-IV CATHERINE Last Admin: 05/08/16 10:28 Dose: 40 mg Meropenem 500 mg/ Dextrose 100 mls @ 200 mls/hr IVPB Q8H-IV CATHERINE Last Admin: 05/08/16 11:42 Dose: 200 mls/hr Norepinephrine Bitartrate 8, (000 mcg/ Dextrose) 500 mls @ 18.75 mls/hr IV TITR CATHERINE; 5 MCG/MIN PRN Reason: Protocol Last Admin: 05/08/16 13:00 Dose: Not Given Pantoprazole Sodium (Protonix 40mg Ivpb (Pre-Docked)) 100 mls @ 200 mls/hr IVPB BID REPLACED BY [facility] Last Admin: 05/08/16 09:44 Dose: 200 mls/hr Potassium Chloride/Dextrose/Sod Cl (D5-1/2ns+20 Meq Kcl -) 1,000 mls @ 75 mls/ hr IV ASDIR REPLACED BY [facility] Last Admin: 05/08/16 09:06 Dose: 75 mls/hr Levothyroxine Sodium (Synthroid -) 88 mcg PO DAILY@0700 REPLACED BY [facility] Last Admin: 05/08/16 06:28 Dose: 88 mcg Mirtazapine (Remeron -) 7.5 mg PO HS REPLACED BY [facility] Last Admin: 05/07/16 22:01 Dose: Not Given Mupirocin (Bactroban 2% Ointment -) 1 applic TP BID REPLACED BY [facility] Last Admin: 05/08/16 11:00 Dose: 1 applic Silver Sulfadiazine (Silvadene -) 1 applic TP DAILY REPLACED BY [facility] Last Admin: 05/08/16 09:45 Dose: 1 applic Sodium Chloride (Normal Saline -) 720 ml IV Q20M PRN PRN Reason: MAP<65mm Hg OR SBP <90 Last Admin: 05/04/16 17:28 Dose: 720 ml A/P 51 year old woman with PMHx of Multiple Sclerosis, Chronic Resp Failure with Trach Collar, Hx of recurrent UTI, Periods of hyponatremia presented with AMS/ Lethargy and found to have Sepsis with Hypotension and Na of 126. #Acute on Chronic Hyponatremia Serum Na now WNL on hypotonic fluids trend Na #Sepsis secondary to UTI ICU monitoring Vent support Keep MAP > 65, CVP 10-12 on Vent IVF as needed Pressers as needed #MS supportive care #Anemia Trend CBC Transfuse as per ICU protocol Thank you Will follow Tyshawn Doe DO
--- NOTE | 2016-05-08 15:05 | PN ---
Physical Exam: SUBJECTIVE: Patient seen and examined at bedside in the ICU. She is trached and on vent, mental status improving, able to follow commands but unable to move extremities. Per nurse, FiO2 increased to 60% overnight, decreased back to 35% in the AM. OBJECTIVE: Trached on mechanical ventilation Vent settings: AC, RR 14, TV 450, FiO2 30, PEEP 5 Off pressor and sedation Central line (triple lumen, IJ) placed, day 4 Vital Signs Period Temp Pulse Resp BP Sys/Morillo Pulse Ox Last 24 Hr 98.9 F-100.4 F 88-117 15-21 123-164/59-83 93-99 GENERAL: The patient is awake, alert, recognizes people and follows commands EYES: pupils equal and reactive to light ENT: NG tube in place LUNGS: lound b/l rhonchi HEART: distant heart sounds ABDOMEN: Soft, nontender, nondistended, normoactive bowel sounds EXTREMITIES: new and more extensive rashes on bilateral lower extremities, dry blisters, no edema : perera in place, light yellow urine ABG Results ABG pH 7.37 (7.35-7.45) 05/08/16 06:00 ABG pCO2 at Pt Temp 54.0 mmHg (35-45) H 05/08/16 06:00 ABG pO2 at Pt Temp 118.0 mmHg (80-100) H 05/08/16 06:00 ABG HCO3 30.8 meq/L (22-26) H 05/08/16 06:00 ABG O2 Sat (Measured) 98.3 % (90-98.9) 05/08/16 06:00 ABG O2 Content 13.9 % vol (15-22) L 05/08/16 06:00 ABG Base Excess 5.1 meq/l (-2-2) H 05/08/16 06:00 CBCD WBC 20.2 K/mm3 (4.0-10.0) H D 05/08/16 05:35 RBC 3.02 M/mm3 (3.60-5.2) L 05/08/16 05:35 Hgb 9.4 GM/dL (10.7-15.3) L D 05/08/16 05:35 Hct 28.6 % (32.4-45.2) L D 05/08/16 05:35 MCV 94.7 fl (80-96) 05/08/16 05:35 MCHC 33.0 g/dl (32.0-36.0) 05/08/16 05:35 RDW 18.4 % (11.6-15.6) H 05/08/16 05:35 Plt Count 127 K/MM3 (134-434) L D 05/08/16 05:35 MPV 8.5 fl (7.5-11.1) 05/08/16 05:35 CMP Sodium 140 mmol/L (136-145) 05/08/16 05:35 Potassium 3.4 mmol/L (3.5-5.1) L 05/08/16 05:35 Chloride 100 mmol/L (98-107) 05/08/16 05:35 Carbon Dioxide 31 mmol/L (21-32) 05/08/16 05:35 Anion Gap 9 (8-16) 05/08/16 05:35 BUN 24 mg/dL (7-18) H 05/08/16 05:35 Creatinine 0.6 mg/dL (0.55-1.02) 05/08/16 05:35 Creat Clearance w eGFR > 60 (>60) 05/08/16 05:35 Calcium 8.2 mg/dL (8.5-10.1) L 05/08/16 05:35 Total Bilirubin 0.3 mg/dL (0.2-1.0) D 05/08/16 05:35 AST 18 U/L (15-37) D 05/08/16 05:35 ALT 33 U/L (12-78) 05/08/16 05:35 Alkaline Phosphatase 256 U/L (45-117) H D 05/08/16 05:35 Total Protein 5.7 g/dl (6.4-8.2) L D 05/08/16 05:35 Albumin 1.9 g/dl (3.4-5.0) L D 05/08/16 05:35 Intake & Output 05/05/16 05/06/16 05/07/16 05/08/16 23:59 23:59 23:59 23:59 Intake Total 2343 2258 1312 450 Output Total 3920 2700 3600 1999 Balance -837 -442 -2288 -1550 Weight 77.706 kg 78.925 kg 78.5 kg 73.595 kg Active Medications Generic Name Dose Route Start Last Admin Trade Name Freq PRN Reason Stop Dose Admin Acetaminophen 650 mg 05/04/16 21:42 Tylenol - PO Q6H PRN FEVER OR PAIN Albuterol/Ipratropium 1 amp 05/08/16 00:00 05/08/16 11:10 Duoneb - NEB 1 amp Q6HPO CATHERINE Administration Amino Acids 30 ml 05/08/16 10:00 05/08/16 09:44 Prosource No Carb Liquid Pkt NGT 30 ml DAILY CATHERINE Administration Enoxaparin Sodium 40 mg 05/08/16 10:00 05/08/16 09:44 Lovenox - SQ 40 mg DAILY CATHERINE Administration Hydrocortisone Sodium Succinate 40 mg 05/08/16 02:00 05/08/16 10:28 Solu-Cortef - IVPB 40 mg Q8H-IV CATHERINE Administration Norepinephrine Bitartrate 8, 500 mls @ 18.75 mls/hr 05/05/16 13:00 05/08/16 13: 00 000 mcg/ Dextrose IV Not Given TITR CATHERINE Protocol 5 MCG/MIN Pantoprazole Sodium 100 mls @ 200 mls/hr 05/07/16 22:00 05/08/16 09:44 Protonix 40mg Ivpb (Pre-Docked) IVPB 200 mls/hr BID CATHERINE Administration Potassium Chloride/Dextrose/Sod Cl 1,000 mls @ 75 mls/hr 05/08/16 08:30 09:06 D5-1/2ns+20 Meq Kcl - IV 75 mls/hr ASDIR CATHERINE Administration Meropenem 500 mg/ Sodium 100 mls @ 200 mls/hr 05/08/16 18:00 Chloride IVPB Q8H-IV CATHERINE Levothyroxine Sodium 88 mcg 05/08/16 07:00 05/08/16 06:28 Synthroid - PO 88 mcg DAILY@0700 CATHERINE Administration Mirtazapine 7.5 mg 05/07/16 22:00 05/07/16 22:01 Remeron - PO Not Given HS CATHERINE Mupirocin 1 applic 05/07/16 22:00 05/08/16 11:00 Bactroban 2% Ointment - TP 1 applic BID CATHERINE Administration Silver Sulfadiazine 1 applic 05/05/16 11:45 05/08/16 09:45 Silvadene - TP 1 applic DAILY CATHERINE Administration Sodium Chloride 720 ml 05/04/16 12:07 05/04/16 17:28 Normal Saline - IV 720 ml Q20M PRN Administration MAP<65mm Hg OR SBP <90 Microbiology 05/04/16 13:15 Blood - Peripheral Venous Blood Culture - Preliminary NO GROWTH OBTAINED AFTER 96 HOURS, INCUBATION TO CONTINUE FOR 1 DAYS. 05/04/16 13:20 Blood - Peripheral Venous Blood Culture - Preliminary NO GROWTH OBTAINED AFTER 96 HOURS, INCUBATION TO CONTINUE FOR 1 DAYS. 05/06/16 13:50 Sputum - Endotrachea Suction/Ventilator Gram Stain - Final 05/06/16 13:50 Sputum - Endotrachea Suction/Ventilator Sputum Culture - Preliminary Yeast Like Organism Imaging: CXR 05/08: Left lower lobe pneumonia Atelectasis in the region of the right cardiophrenic angle CXR 05/07: Status post NG tube insertion. A portable chest x-ray semierect upright. Since the prior chest x-ray dated 05/06/2016, tracheostomy tube and right internal jugular central line are again seen in satisfactory position. A nasogastric tube is not visualized. The heart remains within normal limits in size with bibasal atelectatic changes/infiltrates, left more than right and probable small left pleural effusion CXR : No significant change with NG tube in place. CXR 05/05: A single frontal portable projection of the chest at 12:56 PM is submitted. Since a prior study of earlier in the day, a right-sided triple- lumen catheter has been placed via the internal jugular vein with distal tip in the region of the SVC. No pneumothorax is identified. A tracheostomy tube remains in place. Bilateral pleural effusions are also reidentified. Right- sided triple-lumen catheter placement as described above ASSESSMENT/PLAN: 51 yo F h/o HTN, multiple sclerosis with quadraplegia, chronic urinary retention and chronic respiratory insufficiency, seizure disorder and hypothyroidism admitted to the ICU for baclofen toxicity vs. sepsis 2/2 UTI. Patient is trached and on venti-mask during the day and on vent at night. She had multiple admissions for MDR infections such as UTI and decubitus ulcer in the sacral. Neuro: AMS 2/2 urosepsis in the setting of deteriorating MS - Baseline: AAO x 3, talks, eats - Mental status improving - Cont. AED and zolof - Neuro check Q2H Pulm: Chronic respiratory insufficiency 2/2 ?MS - Trached on vent: see settings above - SBT daily - Maintain O2 Sat. > 88% - Nebulizers PRN - Daily CXR ID: Sepsis 2/2 UTI, Complicated vs Sacral decubitus ulcers; pneumonia - Indwelling perera catheter - H/O MDR infections: UTI, PNA, shingles - WBC 537 on UA - Elevated WBC today with one spike fever of 100.4F - Routine wound care - Final urine and blood cultures are negative - CXR shows L lobar pneumonia - On Meropenem only Renal/: UTI in the setting of chronic urinary retention - Fluid held PRN if MAP < 65% - Maintain perera for urinary retention - On abx treatment Heme: Macrocytic Anemia - Baseline HGB @ 8.6-10 - Transfuse if HGB < 7 Cardiac: Hypotension - Off levophed - Maintain MAP > 65% - Hold all anti-BP meds Endo: Hypothyrodism and adrenal insufficiency - Normal TSH and free T4 - Cont. synthroid - Cortisol level normal Derm: Lower extremity purpura 2/2 drug allergy vs. skin irritation - Rashes appear to be more extensive today - Bactroban per derm - Monitor closely FEN - Fluid held - Cont. to monitor lytes - TwoCal with high concentration and no water added - Prophylaxis - DVT: lovenox 40mg QD - GI: on PPI Disposition - Continues to require inpatient ICU care Code status - Full code Visit type - Emergency Visit Emergency Visit: No - New Patient This patient is new to me today: No - Critical Care Critical Care patient: Yes Total Critical Care Time (in minutes): 45 Critical Care Statement: The care of this patient involved high complexity decision making to prevent further life threatening deterioration of the patient 's condition and/or to evalute & treat vital organ system(s) failure or risk of failure.
[2016-05-08] MEDS: carBAMazepine 100 MG TAB.CHEW PO SCH (17:28)
[2016-05-08] MEDS: MEROPENEM 500 MG in SODIUM CHLORIDE 100 ML IVPB SCH (21:15)
[2016-05-08] MEDS: MIRTAZAPINE 15 MG TABLET (FP) PO SCH (21:15)
--- NOTE | 2016-05-09 01:03 | CONSULT ---
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 BANKER: Yes: Multiple Sclerosis (quadraplegia), Other (legally blind, trigeminal neuralgia -> baclofen pump) Cardio/Vascular: Yes: HTN, Hyperlipdemia Pulmonary: Yes: Pneumonia (recurrent aspiration -> last one in 05/21 (RLL)), Other (hypercapneic respiratory failure s/p trach) Gastrointestinal: Yes: Constipation (chronic) Renal/: Yes: Neurogenic Bladder ( neurogenic bladder, chronic perera catheter) ...LMP: 06/07/12 Infectious Disease: Yes: Other (pneumonia, uti treated by urologist) Musculoskeletal: Yes: Other Dermatology: Yes: Other (chronic decubitus followed by wound care) Additional Medical History: trigeminal neuralgia, baclofen pump. chronic decubitus followed by wound care. neurogenic bladder, chronic perera catheter - Alcohol/Substance Use Hx Alcohol Use: No History of Substance Use: reports: None - Smoking History Smoking history: Never smoked Have you smoked in the past 12 months: No Aproximately how many cigarettes per day: 0 - Social History Usual Living Arrangement: With Parent ADL: Support Services History of Recent Travel: No Home Medications - Allergies Allergies/Adverse Reactions: Allergies Allergy/AdvReac Type Severity Reaction Status Date / Time chloral hydrate Allergy Intermediate Rash Verified 05/04/16 12:01 [Chloral Hydrate] azathioprine [From Imuran] Allergy Rash Verified 05/04/16 12:01 azathioprine sodium Allergy Rash Verified 05/04/16 12:01 [From Imuran] adhesive tape AdvReac Severe sensitivity Verified 05/04/16 12:01 to glue adhesive AdvReac Unknown Verified 05/04/16 12:01 - Home Medications Home Medications: Ambulatory Orders Carbamazepine [Tegretol -] 100 mg PO TID tab.chew 08/27/14 Albuterol 0.083% Nebulizer Rocio [Ventolin 0.083% Nebulizer Soln -] 1 neb NEB Q4H PRN #0 amp 10/26/14 Clonazepam [Klonopin] 0.5 mg PO DAILY 05/08/15 Hydralazine HCl [Apresoline -] 25 mg PO TID tablet 12/08/15 Amlodipine Besylate [Norvasc -] 10 mg PO HS 02/06/16 Baclofen 5 mg PO DAILY 02/06/16 Mirtazapine 7.5 mg PO DAILY 02/06/16 Pantoprazole Sodium [Protonix] 40 mg PO DAILY 02/06/16 Potassium Chloride 20 meq PO DAILY 02/06/16 Sertraline HCl [Zoloft -] 25 mg PO TID 02/06/16 Levothyroxine [Synthroid -] 88 mcg PO DAILY@0700 #30 tablet 02/14/16 Valacyclovir HCl [Valtrex -] 1,000 mg PO TID #20 tablet 04/03/16 Review of Systems - Review of Systems Constitutional: reports: Lethargy, Malaise, Weakness HENT: reports: Difficult Swallowing Neck: reports: Decreased ROM Cardiovascular: reports: Shortness of Breath Respiratory: reports: Exercise Intolerance, Orthopnea, SOB on Exertion Gastrointestinal: reports: Bloating, Constipation Genitourinary: reports: No Symptoms Breasts: reports: No Symptoms Reported Musculoskeletal: reports: Muscle Pain, Muscle Cramps, Muscle Weakness Integumentary: reports: Pallor Neurological: reports: Incoordination, Weakness Endocrine: reports: Intolerance to Cold Physical Exam Vital Signs: Vital Signs Temperature 99.5 F 05/08/16 23:00 Pulse Rate 90 05/09/16 00:00 Respiratory Rate 27 H 05/09/16 00:00 Blood Pressure 139/71 05/09/16 00:00 O2 Sat by Pulse Oximetry (%) 94 L 05/08/16 21:50 Constitutional: Yes: Calm, Mild Distress Eyes: Yes: EOM Intact HENT: Yes: Normocephalic Neck: Yes: Trachea Midline Cardiovascular: Yes: Regular Rate and Rhythm Respiratory: Yes: Mechanically Ventilated, Tachypnea Gastrointestinal: Yes: Soft, Hypoactive Bowel Sounds ...Rectal Exam: Yes: Deferred Renal/: Yes: Perera Present Breast(s): Yes: WNL Musculoskeletal: Yes: Muscle Pain, Muscle Weakness Extremities: Yes: Delayed Capillary Refill Labs: CBC, BMP 05/08/16 05:35 05/08/16 05:35 Assessment/Plan Current Active Problems Altered mental status (Acute) Hyponatremia (Acute) Hypotension (Acute) Hypothermia (Acute) Multiple drug resistant organism (MDRO) culture positive (Acute) Multiple sclerosis (Acute) Presence of intrathecal baclofen pump (Acute) Respiratory failure (Acute) Sepsis syndrome (Acute) Abnormal Lab Results 05/08/16 05/08/16 05/08/16 05:35 05:35 06:00 WBC 20.2 H D RBC 3.02 L Hgb 9.4 L D Hct 28.6 L D RDW 18.4 H Plt Count 127 L D Neutrophils % 92.0 H Lymphocytes % 3.0 L Monocytes % 1.0 L ABG pCO2 at Pt Temp 54.0 H ABG pO2 at Pt Temp 118.0 H ABG HCO3 30.8 H ABG O2 Content 13.9 L ABG Base Excess 5.1 H Potassium 3.4 L BUN 24 H Random Glucose 144 H D Calcium 8.2 L Alkaline Phosphatase 256 H D Total Protein 5.7 L D Albumin 1.9 L D Laboratory Tests 05/05/16 05/07/16 05/07/16 08:10 05:00 05:10 Sodium 134 L Potassium 3.8 Chloride 98 Carbon Dioxide 26 Anion Gap 10 BUN 21 H Creatinine 0.7 D POC Glucometer 153.46001 TSH Cortisol AM Sample 34.5 05/08/16 05:35 Sodium Potassium Chloride Carbon Dioxide Anion Gap BUN Creatinine POC Glucometer TSH 0.55 D Cortisol AM Sample plan: dexamethasone suppresion test hyponatremia likely siadh continue synthroid replacement Current Medications Generic Name Dose Route Start Last Admin Trade Name Freq PRN Reason Stop Dose Admin Acetaminophen 650 mg 05/04/16 21:42 Tylenol - PO Q6H PRN FEVER OR PAIN Albuterol/Ipratropium 1 amp 05/08/16 00:00 05/08/16 23:35 Duoneb - NEB 1 amp Q6HPO CATHERINE Administration Amino Acids 30 ml 05/08/16 10:00 05/08/16 09:44 Prosource No Carb Liquid Pkt NGT 30 ml DAILY CATHERINE Administration Enoxaparin Sodium 40 mg 05/08/16 10:00 05/08/16 09:44 Lovenox - SQ 40 mg DAILY CATHERINE Administration Hydrocortisone Sodium Succinate 40 mg 05/08/16 02:00 05/08/16 17:42 Solu-Cortef - IVPB 40 mg Q8H-IV CATHERINE Administration Norepinephrine Bitartrate 8, 500 mls @ 18.75 mls/hr 05/05/16 13:00 05/08/16 13: 00 000 mcg/ Dextrose IV Not Given TITR CATHERINE Protocol 5 MCG/MIN Pantoprazole Sodium 100 mls @ 200 mls/hr 05/07/16 22:00 05/08/16 21:14 Protonix 40mg Ivpb (Pre-Docked) IVPB 200 mls/hr BID CATHERINE Administration Potassium Chloride/Dextrose/Sod Cl 1,000 mls @ 75 mls/hr 05/08/16 08:30 09:06 D5-1/2ns+20 Meq Kcl - IV 75 mls/hr ASDIR CATHERINE Administration Meropenem 500 mg/ Sodium 100 mls @ 200 mls/hr 05/08/16 18:00 05/08/16 21:15 Chloride IVPB 200 mls/hr Q8H-IV CATHERINE Administration Levothyroxine Sodium 88 mcg 05/08/16 07:00 05/08/16 06:28 Synthroid - PO 88 mcg DAILY@0700 CATHERINE Administration Mirtazapine 7.5 mg 05/07/16 22:00 05/08/16 21:15 Remeron - PO 7.5 mg HS CATHERINE Administration Mupirocin 1 applic 05/07/16 22:00 05/08/16 21:16 Bactroban 2% Ointment - TP 1 applic BID CATHERINE Administration Silver Sulfadiazine 1 applic 05/05/16 11:45 05/08/16 09:45 Silvadene - TP 1 applic DAILY CATHERINE Administration Sodium Chloride 720 ml 05/04/16 12:07 05/04/16 17:28 Normal Saline - IV 720 ml Q20M PRN Administration MAP<65mm Hg OR SBP <90
[2016-05-09] MEDS: ACETAMINOPHEN 325 MG TABLET (FP) PO PRN (01:15)
[2016-05-09] MEDS: MEROPENEM 500 MG in SODIUM CHLORIDE 100 ML IVPB SCH ×3 (01:15→17:27)
[2016-05-09] MEDS: HYDROCORTISONE SOD SUCCINATE 100 MG/2 ML VIAL IVPB SCH ×3 (01:16→17:28)
[2016-05-09 06:19] LABS: BASOPHIL 0.1 % (0-2.0); MCH 31.1 pg (25.7-33.7); MCHC 32.9 g/dl (32.0-36.0); MEAN CELL VOLUME 94.5 fl (80-96); MEAN PLT VOLUME 7.7 fl (7.5-11.1); NEUTROPHILS 90.8 % (42.8-82.8); PLATELET COUNT 131 K/MM3 (134-434); RDW 18.2 % (11.6-15.6); WHITE BLOOD COUNT 14.9 K/mm3 (4.0-10.0)
--- NOTE | 2016-05-09 06:49 | PN ---
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, Physician Chief Complaint: ID Situation remains critical. Tachypneic with higher O2 requirements though now down to 40% FIO2 On Meropenem now her 5th day in the hospital she is febrile perhaps for the first time since admission Note from resident indicates "only on Meropenem" but in fact received Vancomcyin with a trough of 32 2 days ago hence this was held. Also on hydorocortisone - Current Medication List Current Medications: Active Medications Acetaminophen (Tylenol -) 650 mg PO Q6H PRN PRN Reason: FEVER OR PAIN Last Admin: 05/09/16 01:15 Dose: 650 mg Albuterol/Ipratropium (Duoneb -) 1 amp NEB Q6HPO [facility] Last Admin: 05/08/16 23:35 Dose: 1 amp Amino Acids (Prosource No Carb Liquid Pkt) 30 ml NGT DAILY [facility] Last Admin: 05/08/16 09:44 Dose: 30 ml Enoxaparin Sodium (Lovenox -) 40 mg SQ DAILY [facility] Last Admin: 05/08/16 09:44 Dose: 40 mg Hydrocortisone Sodium Succinate (Solu-Cortef -) 40 mg IVPB Q8H-IV [facility] Last Admin: 05/09/16 01:16 Dose: 40 mg Norepinephrine Bitartrate 8, (000 mcg/ Dextrose) 500 mls @ 18.75 mls/hr IV TITR [facility]; 5 MCG/MIN PRN Reason: Protocol Last Admin: 05/08/16 13:00 Dose: Not Given Pantoprazole Sodium (Protonix 40mg Ivpb (Pre-Docked)) 100 mls @ 200 mls/hr IVPB BID [facility] Last Admin: 05/08/16 21:14 Dose: 200 mls/hr Potassium Chloride/Dextrose/Sod Cl (D5-1/2ns+20 Meq Kcl -) 1,000 mls @ 75 mls/ hr IV ASDIR [facility] Last Admin: 05/08/16 09:06 Dose: 75 mls/hr Meropenem 500 mg/ Sodium (Chloride) 100 mls @ 200 mls/hr IVPB Q8H-IV [facility] Last Admin: 05/09/16 01:15 Dose: 200 mls/hr Levothyroxine Sodium (Synthroid -) 88 mcg PO DAILY@0700 [facility] Last Admin: 05/08/16 06:28 Dose: 88 mcg Mirtazapine (Remeron -) 7.5 mg PO HS [facility] Last Admin: 05/08/16 21:15 Dose: 7.5 mg Mupirocin (Bactroban 2% Ointment -) 1 applic TP BID [facility] Last Admin: 05/08/16 21:16 Dose: 1 applic Silver Sulfadiazine (Silvadene -) 1 applic TP DAILY [facility] Last Admin: 05/08/16 09:45 Dose: 1 applic Sodium Chloride (Normal Saline -) 720 ml IV Q20M PRN PRN Reason: MAP<65mm Hg OR SBP <90 Last Admin: 05/04/16 17:28 Dose: 720 ml - Objective Vital Signs: Vital Signs Temperature 101.2 F H 05/09/16 05:00 Pulse Rate 101 H 05/09/16 05:00 Respiratory Rate 19 05/09/16 05:00 Blood Pressure 145/80 05/09/16 05:00 O2 Sat by Pulse Oximetry (%) 94 L 05/08/16 21:50 Constitutional: Yes: Other (Alert) HENT: Yes: Other (oral secretions in the mouth) Neck: Yes: Other (Tracheostomy) Cardiovascular: Yes: S1, S2 Respiratory: Yes: WNL, Regular, CTA Bilaterally, Rhonchi Gastrointestinal: Yes: WNL, Normal Bowel Sounds, Soft. No: Splenomegaly, Tenderness, Tenderness, Rebound Extremities: No: Calf Tenderness, Cold, Cool Integumentary: Yes: Other (Erythematous rash on LE Decubitus) Labs: INR, PTT INR 1.22 (0.82-1.09) H 05/05/16 08:10 Problem List - Problems (1) Sepsis syndrome Code(s): GNJ4710 - (2) Urinary tract infection Code(s): N39.0 - URINARY TRACT INFECTION, SITE NOT SPECIFIED (3) Multiple sclerosis Code(s): G35 - MULTIPLE SCLEROSIS (4) Respiratory failure Code(s): J96.90 - RESPIRATORY FAILURE, UNSP, UNSP W HYPOXIA OR HYPERCAPNIA (5) Multiple drug resistant organism (MDRO) culture positive Code(s): Z16.24 - RESISTANCE TO MULTIPLE ANTIBIOTICS Assessment/Plan Microbiology 05/06/16 13:50 Sputum - Endotrachea Suction/Ventilator Gram Stain - Final 05/06/16 13:50 Sputum - Endotrachea Suction/Ventilator Sputum Culture - Final Yeast Like Organism 05/05/16 16:00 Urine - Urine - Catheterized Urine Culture - Final NO GROWTH OBTAINED 05/04/16 13:52 Urine - Urine - Catheterized Urine Culture - Final Contaminated: Please Repeat 05/04/16 13:20 Blood - Peripheral Venous Blood Culture - Preliminary NO GROWTH OBTAINED AFTER 96 HOURS, INCUBATION TO CONTINUE FOR 1 DAYS. 05/04/16 13:15 Blood - Peripheral Venous Blood Culture - Preliminary NO GROWTH OBTAINED AFTER 96 HOURS, INCUBATION TO CONTINUE FOR 1 DAYS. Laboratory Tests 05/04/16 05/07/16 05/08/16 13:52 06:00 05:35 WBC Hgb Hct Plt Count BUN 24 H Creatinine 0.6 Total Bilirubin 0.3 D Alkaline Phosphatase 256 H D Ur Leukocyte Esterase 3+ H Urine RBC 15 Urine WBC 537 Urine Bacteria Many Vancomycin Trough 32.076 H* 05/09/16 05/09/16 05:55 05:55 WBC 14.9 H Hgb 8.1 L D Hct 24.5 L Plt Count 131 L BUN Pending Creatinine Pending Total Bilirubin Alkaline Phosphatase Ur Leukocyte Esterase Urine RBC Urine WBC Urine Bacteria Vancomycin Trough Assessment Sepsis syndrome presumed source urinary tract and pneumonia in this 51 year old female with MS and multiple prior admissions She has been on Meropenem and Vanco (held) with no sign of MRSA so does not need Vanco currently. She has secretions from her mouth raising the question of fever related to aspiriation. Currently on steroids ? adrenal insufficiency. Growing Susan from sputum culture this should be treated in light of antibiotics and fever currently. Also note Alk phos elevation ? gall bladder source. Advise Continue Meropenem for now day 5 Blood cultures x 2 now Sonogram the liver GB Add Fluconazole 400mg daily IVPB empirically for ? systemic fungal disease Critical care time spent 38 minutes Anam PATIÑO
[2016-05-09 06:53] LABS: ALBUMIN 1.6 g/dl (3.4-5.0); ANION GAP 6 (8-16); CALCIUM 7.8 mg/dL (8.5-10.1); CO2 32 mmol/L (21-32)
[2016-05-09] MEDS: ALBUTEROL SO4 2.5/IPRATROPIUM 0.5 INH SOL 3 ML VIAL.NEB. NEB SCH ×4 (06:54→23:09)
[2016-05-09 06:57] LABS: ALK PHOS 172 U/L (45-117); BILIRUBIN,TOTAL 0.3 mg/dL (0.2-1.0); CREATININE 0.6 mg/dL (0.55-1.02); SGOT/AST 13 U/L (15-37); SGPT/ALT 22 U/L (12-78); TOT PROT 4.9 g/dl (6.4-8.2)
[2016-05-09] MEDS: LEVOTHYROXINE NA 88 MCG TABLET (FP) PO SCH (07:02)
[2016-05-09 07:13] LABS: GLUCOSE,RANDOM 472 mg/dL (74-106)
[2016-05-09] MEDS ORDERED: PT OWN MED DRAWER 7, Y5N ONE ×3 (09:44→21:47)
--- NOTE | 2016-05-09 10:08 | PN ---
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 (short form) - Note 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: Patient seen and examined in the ICU. More awake and responsive today. AC Mode of vent. (Has required prolonged vent support) Remains off pressors. (+) Fever Still with rash ->(Possibly slightly better) Noted rash distribution mostly in the LE. (none on her face, arms, chest, or abdomen) CXR: Rotated / possible slight increase in effusion/infiltrate Intake & Output 05/06/16 05/07/16 05/08/16 05/09/16 23:59 23:59 23:59 23:59 Intake Total 2258 1312 2510 855 Output Total 2700 3600 3600 1900 Balance -442 -2288 -1090 -1045 Weight 174 lb 173 lb 1.006 oz 162 lb 4 oz 169 lb 7 oz Last Vital Signs Temp Pulse Resp BP Pulse Ox 101.2 F H 88 16 125/60 94 L 05/09/16 05:00 05/09/16 06:00 05/09/16 08:03 05/09/16 06:00 05/08/16 21:50 Active Medications Acetaminophen (Tylenol -) 650 mg PO Q6H PRN PRN Reason: FEVER OR PAIN Last Admin: 05/09/16 01:15 Dose: 650 mg Albuterol/Ipratropium (Duoneb -) 1 amp NEB Q6HPO [facility] Last Admin: 05/09/16 06:54 Dose: 1 amp Amino Acids (Prosource No Carb Liquid Pkt) 30 ml NGT DAILY [facility] Last Admin: 05/08/16 09:44 Dose: 30 ml Enoxaparin Sodium (Lovenox -) 40 mg SQ DAILY [facility] Last Admin: 05/08/16 09:44 Dose: 40 mg Hydrocortisone Sodium Succinate (Solu-Cortef -) 40 mg IVPB Q8H-IV [facility] Last Admin: 05/09/16 01:16 Dose: 40 mg Norepinephrine Bitartrate 8, (000 mcg/ Dextrose) 500 mls @ 18.75 mls/hr IV TITR [facility]; 5 MCG/MIN PRN Reason: Protocol Last Admin: 05/08/16 13:00 Dose: Not Given Pantoprazole Sodium (Protonix 40mg Ivpb (Pre-Docked)) 100 mls @ 200 mls/hr IVPB BID [facility] Last Admin: 03/03/17 21:14 Dose: 200 mls/hr Potassium Chloride/Dextrose/Sod Cl (D5-1/2ns+20 Meq Kcl -) 1,000 mls @ 75 mls/ hr IV ASDIR [facility] Last Admin: 05/08/16 09:06 Dose: 75 mls/hr Meropenem 500 mg/ Sodium (Chloride) 100 mls @ 200 mls/hr IVPB Q8H-IV [facility] Last Admin: 05/09/16 01:15 Dose: 200 mls/hr Fluconazole (Diflucan 400 Mg/D5w Premixed Ivpb -) 200 mls @ 200 mls/hr IVPB DAILY [facility] Levothyroxine Sodium (Synthroid -) 88 mcg PO DAILY@0700 [facility] Last Admin: 05/09/16 07:02 Dose: 88 mcg Mirtazapine (Remeron -) 7.5 mg PO HS [facility] Last Admin: 05/08/16 21:15 Dose: 7.5 mg Mupirocin (Bactroban 2% Ointment -) 1 applic TP BID [facility] Last Admin: 05/08/16 21:16 Dose: 1 applic Silver Sulfadiazine (Silvadene -) 1 applic TP DAILY [facility] Last Admin: 05/08/16 09:45 Dose: 1 applic Sodium Chloride (Normal Saline -) 720 ml IV Q20M PRN PRN Reason: MAP<65mm Hg OR SBP <90 Last Admin: 05/04/16 17:28 Dose: 720 ml Constitutional: Yes: More awake and responsive Eyes: Yes: WNL, (-) Pallor HENT: Yes: WNL Neck: Yes: WNL Cardiovascular: Yes: S1, S2 Respiratory: Yes: Trached / Mechanically Ventilated, bibasilar Rhonchi Gastrointestinal: Yes: Normal Bowel Sounds, Soft, Abdomen, Obese. No: Tenderness ...Rectal Exam: Yes: Deferred Renal/: Yes: Raza Present (yellow output) Musculoskeletal: Yes: WNL Extremities: Yes: Cool Edema: Yes Edema: LLE: Trace, RLE: Trace Peripheral Pulses WNL: Yes (+1 bilateral pedal pulses) Integumentary: Yes: (+) Rash in the LE Wound/Incision: Yes: Other (tunneling sacral wound and to left buttocks) Neurological: Yes: More awake and responsive Labs: Laboratory Results - last 24 hr 02/05/08/16 05/08/16 13:20 05:35 05:35 WBC RBC Hgb Hct MCV MCHC RDW Plt Count MPV Neutrophils % Lymphocytes % Monocytes % Eosinophils % Basophils % Sodium 140 Potassium 3.4 L Chloride 100 Carbon Dioxide 31 Anion Gap 9 BUN 24 H Creatinine 0.6 Creat Clearance w eGFR > 60 POC Glucometer Random Glucose 144 H D Calcium 8.2 L Total Bilirubin 0.3 D AST 18 D ALT 33 Alkaline Phosphatase 256 H D Total Protein 5.7 L D Albumin 1.9 L D TSH 0.55 D Cortisol AM Sample Baclofen 118 05/08/16 05/09/16 05/09/16 05:45 05:55 05:55 WBC 14.9 H RBC 2.59 L Hgb 8.1 L D Hct 24.5 L MCV 94.5 MCHC 32.9 RDW 18.2 H Plt Count 131 L MPV 7.7 Neutrophils % 90.8 H Lymphocytes % 3.7 L D Monocytes % 5.4 D Eosinophils % 0.0 D Basophils % 0.1 Sodium 140 Potassium 5.6 H D Chloride 102 Carbon Dioxide 32 Anion Gap 6 L BUN 25 H Creatinine 0.6 Creat Clearance w eGFR > 60 POC Glucometer Random Glucose 472 H* D Calcium 7.8 L Total Bilirubin 0.3 AST 13 L D ALT 22 D Alkaline Phosphatase 172 H D Total Protein 4.9 L Albumin 1.6 L TSH Cortisol AM Sample 55.8 Baclofen 05/09/16 09:00 WBC RBC Hgb Hct MCV MCHC RDW Plt Count MPV Neutrophils % Lymphocytes % Monocytes % Eosinophils % Basophils % Sodium Potassium Chloride Carbon Dioxide Anion Gap BUN Creatinine Creat Clearance w eGFR POC Glucometer 157 Random Glucose Calcium Total Bilirubin AST ALT Alkaline Phosphatase Total Protein Albumin TSH Cortisol AM Sample Baclofen Assessment/Plan Septic Shock Suspected RLL PNA TI (?) Component of Autonomic dysfunction causing hypotension MS with quadraplegia Acute on Chronic respiratory failure / trach and nocturnal vent dependence Seizure disorder Hypothyroidism MDR infections (UTI, sacral wound) ID followup noted -> For US and noted changes in coverage CPAP and Trach collar if tolerated Monitor off pressors ABX per ID NGT feeds Monitor CXR Aspiration precautions VTE prophylaxis BD TX Local skin care Dr Fox CCTime 35"
[2016-05-09] MEDS: MUPIROCIN 2% TOPICAL OINTMENT 22 GM TUBE TP SCH ×2 (10:21→21:49)
[2016-05-09] MEDS: D5-1/2NS+20 MEQ KCL - 1,000 ML IV SCH (10:22)
[2016-05-09] MEDS: PANTOPRAZOLE SODIUM 100 ML IVPB SCH ×2 (10:23→21:49)
[2016-05-09] MEDS: SILVER SULFADIAZINE 1% TOP CREAM 50 GM JAR TP SCH (10:23)
[2016-05-09] MEDS: ENOXAPARIN NA (PORCINE) 40 MG/0.4 ML DISP.SYRIN SQ SCH (10:24)
[2016-05-09] MEDS: AMINO ACIDS/PROTEIN HYDROLYS 30 ML LIQUID.PKT NGT SCH (10:24)
[2016-05-09] MEDS: FLUCONAZOLE 400 MG/D5W 200 ML IVPB SCH (10:26)
[2016-05-09] MEDS ORDERED: INSULIN SLIDING SCALE (NOVOLOG) 1 VIAL SQ SCH (11:00)
--- NOTE | 2016-05-09 11:37 | PN ---
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 (short form) - Note 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: Renal Followup for Hyponatremia Pt seen and examined in the ICU awake and alert on the Vent on 40% FiO2 Febrile last night good urine output Vital Signs Temperature 98.2 F 05/09/16 10:00 Pulse Rate 69 05/09/16 10:00 Respiratory Rate 14 05/09/16 10:00 Blood Pressure 132/65 05/09/16 10:00 O2 Sat by Pulse Oximetry (%) 94 L 05/08/16 21:50 Intake & Output 05/06/16 05/07/16 05/08/16 05/09/16 23:59 23:59 23:59 23:59 Intake Total 2258 1312 2510 855 Output Total 2700 3600 3600 1900 Balance -442 -2288 -1090 -1045 Weight 174 lb 173 lb 1.006 oz 162 lb 4 oz 169 lb 7 oz Gen: Awake on Trach Collar HEENT: Trach in place, no JVD CVS: RRR, No M/R Lungs: Dec BS left lung Abd: Soft NT/ND Ext: no edema, clubbing or cyanosis : perera in place CBC, BMP 05/09/16 05:55 05/09/16 05:55 Current Medications Acetaminophen (Tylenol -) 650 mg PO Q6H PRN PRN Reason: FEVER OR PAIN Last Admin: 05/09/16 01:15 Dose: 650 mg Albuterol/Ipratropium (Duoneb -) 1 amp NEB Q6HPO [facility] Last Admin: 05/09/16 06:54 Dose: 1 amp Amino Acids (Prosource No Carb Liquid Pkt) 30 ml NGT DAILY [facility] Last Admin: 05/09/16 10:24 Dose: 30 ml Enoxaparin Sodium (Lovenox -) 40 mg SQ DAILY [facility] Last Admin: 05/09/16 10:24 Dose: 40 mg Hydrocortisone Sodium Succinate (Solu-Cortef -) 40 mg IVPB Q8H-IV [facility] Last Admin: 05/09/16 10:23 Dose: 40 mg Norepinephrine Bitartrate 8, (000 mcg/ Dextrose) 500 mls @ 18.75 mls/hr IV TITR [facility]; 5 MCG/MIN PRN Reason: Protocol Last Admin: 05/08/16 13:00 Dose: Not Given Pantoprazole Sodium (Protonix 40mg Ivpb (Pre-Docked)) 100 mls @ 200 mls/hr IVPB BID [facility] Last Admin: 05/09/16 10:23 Dose: 200 mls/hr Meropenem 500 mg/ Sodium (Chloride) 100 mls @ 200 mls/hr IVPB Q8H-IV [facility] Last Admin: 05/09/16 10:26 Dose: 200 mls/hr Fluconazole (Diflucan 400 Mg/D5w Premixed Ivpb -) 200 mls @ 200 mls/hr IVPB DAILY [facility] Last Admin: 05/09/16 10:26 Dose: 200 mls/hr Levothyroxine Sodium (Synthroid -) 88 mcg PO DAILY@0700 [facility] Last Admin: 05/09/16 07:02 Dose: 88 mcg Mirtazapine (Remeron -) 7.5 mg PO HS [facility] Last Admin: 05/08/16 21:15 Dose: 7.5 mg Mupirocin (Bactroban 2% Ointment -) 1 applic TP BID [facility] Last Admin: 05/09/16 10:21 Dose: 1 applic Silver Sulfadiazine (Silvadene -) 1 applic TP DAILY [facility] Last Admin: 05/09/16 10:23 Dose: 1 applic Sodium Chloride (Normal Saline -) 720 ml IV Q20M PRN PRN Reason: MAP<65mm Hg OR SBP <90 Last Admin: 05/04/16 17:28 Dose: 720 ml A/P 51 year old woman with PMHx of Multiple Sclerosis, Chronic Resp Failure with Trach Collar, Hx of recurrent UTI, Periods of hyponatremia presented with AMS/ Lethargy and found to have Sepsis with Hypotension and Na of 126. #Acute on Chronic Hyponatremia Serum na is within normal limits can continue 1/2 NS Trend Na daily #Hyperkalemia secondary to supplantation D/c IVF with KCl Repeat BMP in the evening #Sepsis secondary to UTI ICU monitoring Vent support Keep MAP > 65, CVP 10-12 on Vent IVF as needed Pressers as needed #MS supportive care #Anemia Trend CBC Transfuse as per ICU protocol Tyshawn Doe DO
[2016-05-09] MEDS ORDERED: DEXTROSE 5%-0.45% SALINE 1,000 ML IV SCH (11:45)
[2016-05-09 12:09] LABS: MAGNESIUM 2.2 mg/dL (1.8-2.4); PHOSPHOROUS 2.5 mg/dL (2.5-4.9)
[2016-05-09] MEDS: NOREPINEPHRINE BITARTRATE 8,000 MCG in DEXTROSE 5%-WATER - 492 ML IV SCH (13:00)
--- NOTE | 2016-05-09 18:27 | PN ---
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, Physician Chief Complaint: AWAKE ALERT, FAMILY ALL BEDSIDE NPO DUE TO MS CHANGE MUCH MORE ALERT NOW - Current Medication List Current Medications: Active Medications Acetaminophen (Tylenol -) 650 mg PO Q6H PRN PRN Reason: FEVER OR PAIN Last Admin: 05/09/16 01:15 Dose: 650 mg Albuterol/Ipratropium (Duoneb -) 1 amp NEB Q6HPO [facility] Last Admin: 05/09/16 11:58 Dose: 1 amp Amino Acids (Prosource No Carb Liquid Pkt) 30 ml NGT DAILY [facility] Last Admin: 05/09/16 10:24 Dose: 30 ml Enoxaparin Sodium (Lovenox -) 40 mg SQ DAILY [facility] Last Admin: 05/09/16 10:24 Dose: 40 mg Hydrocortisone Sodium Succinate (Solu-Cortef -) 40 mg IVPB Q8H-IV [facility] Last Admin: 05/09/16 17:28 Dose: 40 mg Norepinephrine Bitartrate 8, (000 mcg/ Dextrose) 500 mls @ 18.75 mls/hr IV TITR [facility]; 5 MCG/MIN PRN Reason: Protocol Last Admin: 05/09/16 13:00 Dose: Not Given Pantoprazole Sodium (Protonix 40mg Ivpb (Pre-Docked)) 100 mls @ 200 mls/hr IVPB BID [facility] Last Admin: 05/09/16 10:23 Dose: 200 mls/hr Meropenem 500 mg/ Sodium (Chloride) 100 mls @ 200 mls/hr IVPB Q8H-IV [facility] Last Admin: 05/09/16 17:27 Dose: 200 mls/hr Fluconazole (Diflucan 400 Mg/D5w Premixed Ivpb -) 200 mls @ 200 mls/hr IVPB DAILY [facility] Last Admin: 05/09/16 10:26 Dose: 200 mls/hr Dextrose/Sodium Chloride (D5-1/2ns -) 1,000 mls @ 75 mls/hr IV ASDIR [facility] Last Admin: 05/09/16 12:17 Dose: 75 mls/hr Levothyroxine Sodium (Synthroid -) 88 mcg PO DAILY@0700 [facility] Last Admin: 05/09/16 07:02 Dose: 88 mcg Mirtazapine (Remeron -) 7.5 mg PO HS [facility] Last Admin: 03/03/17 21:15 Dose: 7.5 mg Mupirocin (Bactroban 2% Ointment -) 1 applic TP BID [facility] Last Admin: 05/09/16 10:21 Dose: 1 applic Silver Sulfadiazine (Silvadene -) 1 applic TP DAILY [facility] Last Admin: 05/09/16 10:23 Dose: 1 applic Sodium Chloride (Normal Saline -) 720 ml IV Q20M PRN PRN Reason: MAP<65mm Hg OR SBP <90 Last Admin: 05/04/16 17:28 Dose: 720 ml - Objective Vital Signs: Vital Signs Temperature 99 F 05/09/16 14:00 Pulse Rate 72 05/09/16 17:51 Respiratory Rate 18 05/09/16 17:51 Blood Pressure 128/61 05/09/16 17:51 O2 Sat by Pulse Oximetry (%) 94 L 05/08/16 21:50 Constitutional: Yes: Mild Distress Eyes: Yes: WNL HENT: Yes: WNL Neck: Yes: WNL Cardiovascular: Yes: WNL Respiratory: Yes: Mechanically Ventilated Gastrointestinal: Yes: WNL Genitourinary: Yes: Other Musculoskeletal: Yes: Muscle Weakness Extremities: Yes: Other Edema: Yes Peripheral Pulses WNL: Yes Integumentary: Yes: Pressure Ulcer Wound/Incision: Yes: Dressing Dry and Intact Neurological: Yes: Pre-Existing Deficit, Weakness ...Motor Strength: LUE, LLE, RUE, RLE Psychiatric: Yes: Other Labs: CBC, BMP 05/09/16 05:55 05/09/16 11:35 INR, PTT INR 1.22 (0.82-1.09) H 05/05/16 08:10 Assessment/Plan SWALLOW EVAL PENDING DISCUSSED WITH NURSE, PATIENT ON CPAP WITH VENT ONCE COMFORTABLE CAN TRY ICE CHIPS ICU MONITORING NEURO CHECKS WOUND CARE
[2016-05-09] MEDS: MIRTAZAPINE 15 MG TABLET (FP) PO SCH (21:49)
[2016-05-10] MEDS: MEROPENEM 500 MG in SODIUM CHLORIDE 100 ML IVPB SCH ×3 (02:43→17:17)
[2016-05-10] MEDS: HYDROCORTISONE SOD SUCCINATE 100 MG/2 ML VIAL IVPB SCH ×4 (02:44→17:17)
[2016-05-10] MEDS: ACETAMINOPHEN 325 MG TABLET (FP) PO PRN ×2 (02:44→22:59)
[2016-05-10 05:26] LABS: MCH 31.4 pg (25.7-33.7); MEAN CELL VOLUME 95.2 fl (80-96); MEAN PLT VOLUME 8.2 fl (7.5-11.1); PLATELET COUNT 122 K/MM3 (134-434); RDW 17.9 % (11.6-15.6)
[2016-05-10 05:52] LABS: ALBUMIN 1.8 g/dl (3.4-5.0); ANION GAP 3 (8-16); CALCIUM 8.5 mg/dL (8.5-10.1); CO2 37 mmol/L (21-32); GLUCOSE,RANDOM 154 mg/dL (74-106); MAGNESIUM 2.2 mg/dL (1.8-2.4)
[2016-05-10 05:56] LABS: ALK PHOS 213 U/L (45-117); BILIRUBIN,TOTAL 0.4 mg/dL (0.2-1.0); CREATININE 0.5 mg/dL (0.55-1.02); PHOSPHOROUS 2.7 mg/dL (2.5-4.9); SGOT/AST 82 U/L (15-37); SGPT/ALT 66 U/L (12-78); TOT PROT 5.6 g/dl (6.4-8.2)
[2016-05-10] MEDS: LEVOTHYROXINE NA 88 MCG TABLET (FP) PO SCH (06:21)
[2016-05-10] MEDS: ALBUTEROL SO4 2.5/IPRATROPIUM 0.5 INH SOL 3 ML VIAL.NEB. NEB SCH ×4 (06:24→23:46)
--- NOTE | 2016-05-10 07:33 | PN ---
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, Physician Chief Complaint: ID Meropenem day 6 empiric for sepsis Fluconazole added day 1 Looks much more alert today more like herself having seen her before many times Low grade fevers present - Current Medication List Current Medications: Active Medications Acetaminophen (Tylenol -) 650 mg PO Q6H PRN PRN Reason: FEVER OR PAIN Last Admin: 05/10/16 02:44 Dose: 650 mg Albuterol/Ipratropium (Duoneb -) 1 amp NEB Q6HPO [facility] Last Admin: 05/10/16 06:24 Dose: 1 amp Amino Acids (Prosource No Carb Liquid Pkt) 30 ml NGT DAILY [facility] Last Admin: 05/09/16 10:24 Dose: 30 ml Enoxaparin Sodium (Lovenox -) 40 mg SQ DAILY [facility] Last Admin: 05/09/16 10:24 Dose: 40 mg Hydrocortisone Sodium Succinate (Solu-Cortef -) 40 mg IVPB Q8H-IV [facility] Last Admin: 05/10/16 02:44 Dose: 40 mg Norepinephrine Bitartrate 8, (000 mcg/ Dextrose) 500 mls @ 18.75 mls/hr IV TITR [facility]; 5 MCG/MIN PRN Reason: Protocol Last Admin: 05/09/16 13:00 Dose: Not Given Pantoprazole Sodium (Protonix 40mg Ivpb (Pre-Docked)) 100 mls @ 200 mls/hr IVPB BID [facility] Last Admin: 05/09/16 21:49 Dose: 200 mls/hr Meropenem 500 mg/ Sodium (Chloride) 100 mls @ 200 mls/hr IVPB Q8H-IV [facility] Last Admin: 05/10/16 02:43 Dose: 200 mls/hr Fluconazole (Diflucan 400 Mg/D5w Premixed Ivpb -) 200 mls @ 200 mls/hr IVPB DAILY [facility] Last Admin: 05/09/16 10:26 Dose: 200 mls/hr Dextrose/Sodium Chloride (D5-1/2ns -) 1,000 mls @ 75 mls/hr IV ASDIR [facility] Last Admin: 05/09/16 12:17 Dose: 75 mls/hr Levothyroxine Sodium (Synthroid -) 88 mcg PO DAILY@0700 [facility] Last Admin: 05/10/16 06:21 Dose: 88 mcg Mirtazapine (Remeron -) 7.5 mg PO HS [facility] Last Admin: 05/09/16 21:49 Dose: 7.5 mg Mupirocin (Bactroban 2% Ointment -) 1 applic TP BID [facility] Last Admin: 05/09/16 21:49 Dose: 1 applic Silver Sulfadiazine (Silvadene -) 1 applic TP DAILY [facility] Last Admin: 05/09/16 10:23 Dose: 1 applic Sodium Chloride (Normal Saline -) 720 ml IV Q20M PRN PRN Reason: MAP<65mm Hg OR SBP <90 Last Admin: 05/04/16 17:28 Dose: 720 ml - Objective Vital Signs: Vital Signs Temperature 100.8 F H 05/10/16 06:00 Pulse Rate 88 05/10/16 06:00 Respiratory Rate 16 05/10/16 06:00 Blood Pressure 157/70 05/10/16 06:00 O2 Sat by Pulse Oximetry (%) 100 05/09/16 20:15 Constitutional: Yes: Well Nourished, No Distress Neck: Yes: Other (trach) Cardiovascular: Yes: Regular Rate and Rhythm, S1, S2 Respiratory: Yes: WNL, Regular, CTA Bilaterally, Rhonchi Gastrointestinal: Yes: Soft. No: Tenderness, Tenderness, Rebound Edema: No Labs: CBC, BMP 05/10/16 05:00 05/10/16 05:00 INR, PTT INR 1.22 (0.82-1.09) H 05/05/16 08:10 Problem List - Problems (1) Sepsis syndrome Code(s): AAM2718 - (2) Urinary tract infection Code(s): N39.0 - URINARY TRACT INFECTION, SITE NOT SPECIFIED (3) Multiple sclerosis Code(s): G35 - MULTIPLE SCLEROSIS (4) Respiratory failure Code(s): J96.90 - RESPIRATORY FAILURE, UNSP, UNSP W HYPOXIA OR HYPERCAPNIA (5) Multiple drug resistant organism (MDRO) culture positive Code(s): Z16.24 - RESISTANCE TO MULTIPLE ANTIBIOTICS Assessment/Plan Microbiology Laboratory Tests 05/10/16 05/10/16 05:00 05:00 WBC 14.0 H Hgb 7.7 L Plt Count 122 L AST 82 H D ALT 66 D Alkaline Phosphatase 213 H D Assessment Sepsis syndrome improving Pneumonia Urinary infection Multiple sclerosis ? Adrenal insufficiency Anemia/ Thrombocytopenia Elevated Alk Phos Plan Compete cource Meropenem tomorrow Continue fluconazole as concern for systemic fungal infection in ICU Susan ( risk factors line antibiotics steroids overgrowth) Sonogram liver ordered Appears to be improving despite low grade temp 35 ' critical care time spent
[2016-05-10] MEDS ORDERED: PT OWN MED DRAWER 7, Y5N ONE ×3 (08:30→22:42)
[2016-05-10] MEDS: PANTOPRAZOLE SODIUM 100 ML IVPB SCH ×2 (09:12→22:59)
[2016-05-10] MEDS: AMINO ACIDS/PROTEIN HYDROLYS 30 ML LIQUID.PKT NGT SCH (09:13)
[2016-05-10] MEDS: ENOXAPARIN NA (PORCINE) 40 MG/0.4 ML DISP.SYRIN SQ SCH (09:13)
[2016-05-10] MEDS: MUPIROCIN 2% TOPICAL OINTMENT 22 GM TUBE TP SCH ×2 (09:23→22:59)
--- NOTE | 2016-05-10 09:39 | PN ---
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 (short form) - Note 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: Patient seen and examined in the ICU. Awake and interactive today. AC Mode of vent. Became hypercapneic on CPAP trials yesterday. Remains off pressors. Low grade temperature elevations Rash looks slightly better today (more dry). Rash distribution still in the LE. (none on her face, arms, chest, or abdomen) CXR: Mildly increased bilateral vascular markings Intake & Output 05/07/16 05/08/16 05/09/16 05/10/16 23:59 23:59 23:59 23:59 Intake Total 1312 2510 855 1600 Output Total 3600 3600 2400 900 Balance -2288 -1090 -1545 700 Weight 173 lb 1.006 oz 162 lb 4 oz 169 lb 7 oz 154 lb 15.759 oz Last Vital Signs Temp Pulse Resp BP Pulse Ox 100.3 F H 74 28 H 145/58 95 05/10/16 08:00 05/10/16 08:00 05/10/16 09:00 05/10/16 08:00 05/10/16 09:05 Active Medications Acetaminophen (Tylenol -) 650 mg PO Q6H PRN PRN Reason: FEVER OR PAIN Last Admin: 05/10/16 02:44 Dose: 650 mg Albuterol/Ipratropium (Duoneb -) 1 amp NEB Q6HPO [facility] Last Admin: 05/10/16 06:24 Dose: 1 amp Amino Acids (Prosource No Carb Liquid Pkt) 30 ml NGT DAILY [facility] Last Admin: 05/10/16 09:13 Dose: 30 ml Enoxaparin Sodium (Lovenox -) 40 mg SQ DAILY [facility] Last Admin: 05/10/16 09:13 Dose: 40 mg Hydrocortisone Sodium Succinate (Solu-Cortef -) 40 mg IVPB Q8H-IV [facility] Last Admin: 05/10/16 09:14 Dose: 40 mg Norepinephrine Bitartrate 8, (000 mcg/ Dextrose) 500 mls @ 18.75 mls/hr IV TITR [facility]; 5 MCG/MIN PRN Reason: Protocol Last Admin: 05/09/16 13:00 Dose: Not Given Pantoprazole Sodium (Protonix 40mg Ivpb (Pre-Docked)) 100 mls @ 200 mls/hr IVPB BID [facility] Last Admin: 03/05/17 09:12 Dose: 200 mls/hr Meropenem 500 mg/ Sodium (Chloride) 100 mls @ 200 mls/hr IVPB Q8H-IV [facility] Last Admin: 05/10/16 09:13 Dose: 200 mls/hr Fluconazole (Diflucan 400 Mg/D5w Premixed Ivpb -) 200 mls @ 200 mls/hr IVPB DAILY [facility] Last Admin: 05/09/16 10:26 Dose: 200 mls/hr Dextrose/Sodium Chloride (D5-1/2ns -) 1,000 mls @ 75 mls/hr IV ASDIR [facility] Last Admin: 05/09/16 12:17 Dose: 75 mls/hr Levothyroxine Sodium (Synthroid -) 88 mcg PO DAILY@0700 [facility] Last Admin: 05/10/16 06:21 Dose: 88 mcg Mirtazapine (Remeron -) 7.5 mg PO HS [facility] Last Admin: 05/09/16 21:49 Dose: 7.5 mg Mupirocin (Bactroban 2% Ointment -) 1 applic TP BID [facility] Last Admin: 05/10/16 09:23 Dose: 1 applic Silver Sulfadiazine (Silvadene -) 1 applic TP DAILY [facility] Last Admin: 05/09/16 10:23 Dose: 1 applic Sodium Chloride (Normal Saline -) 720 ml IV Q20M PRN PRN Reason: MAP<65mm Hg OR SBP <90 Last Admin: 05/04/16 17:28 Dose: 720 ml Constitutional: Yes: More awake and responsive Eyes: Yes: WNL, (-) Pallor HENT: Yes: WNL Neck: Yes: WNL Cardiovascular: Yes: S1, S2 Respiratory: Yes: Trached / Mechanically Ventilated, bibasilar Rhonchi Gastrointestinal: Yes: Normal Bowel Sounds, Soft, Abdomen, Obese. No: Tenderness ...Rectal Exam: Yes: Deferred Renal/: Yes: Raza Present (yellow output) Musculoskeletal: Yes: WNL Extremities: Yes: Cool Edema: Yes Edema: LLE: Trace, RLE: Trace Peripheral Pulses WNL: Yes (+1 bilateral pedal pulses) Integumentary: Yes: (+) Rash in the LE Wound/Incision: Yes: Other (tunneling sacral wound and to left buttocks) Neurological: Yes: More awake and responsive Labs: Laboratory Results - last 24 hr 03/02/17 03/02/17 03/03/17 12:33 18:48 11:15 WBC RBC Hgb Hct MCV MCHC RDW Plt Count MPV Sodium Potassium Chloride Carbon Dioxide Anion Gap BUN Creatinine Creat Clearance w eGFR POC Glucometer 155.17790 134.41220 175.96274 Random Glucose Calcium Phosphorus Magnesium Total Bilirubin AST ALT Alkaline Phosphatase Total Protein Albumin Cortisol AM Sample 05/08/16 05/09/16 05/09/16 18:30 05:55 11:23 WBC RBC Hgb Hct MCV MCHC RDW Plt Count MPV Sodium Potassium Chloride Carbon Dioxide Anion Gap BUN Creatinine Creat Clearance w eGFR POC Glucometer 131.69858 Random Glucose Calcium Phosphorus Cancelled Magnesium Cancelled Total Bilirubin AST ALT Alkaline Phosphatase Total Protein Albumin Cortisol AM Sample 28.9 05/09/16 05/09/16 05/09/16 11:35 16:48 21:45 WBC RBC Hgb Hct MCV MCHC RDW Plt Count MPV Sodium Potassium Chloride Carbon Dioxide Anion Gap BUN Creatinine Creat Clearance w eGFR POC Glucometer 146 121 Random Glucose 127 H D Calcium Phosphorus 2.5 Magnesium 2.2 Total Bilirubin AST ALT Alkaline Phosphatase Total Protein Albumin Cortisol AM Sample 05/10/16 05/10/16 05/10/16 05:00 05:00 05:01 WBC 14.0 H RBC 2.45 L Hgb 7.7 L Hct 23.3 L MCV 95.2 MCHC 33.0 RDW 17.9 H Plt Count 122 L MPV 8.2 Sodium 146 H Potassium 4.3 D Chloride 106 Carbon Dioxide 37 H Anion Gap 3 L BUN 29 H Creatinine 0.5 L Creat Clearance w eGFR > 60 POC Glucometer 153 Random Glucose 154 H D Calcium 8.5 Phosphorus 2.7 Magnesium 2.2 Total Bilirubin 0.4 D AST 82 H D ALT 66 D Alkaline Phosphatase 213 H D Total Protein 5.6 L Albumin 1.8 L Cortisol AM Sample Assessment/Plan Septic Shock Suspected RLL PNA TI (?) Component of Autonomic dysfunction causing hypotension MS with quadraplegia Acute on Chronic respiratory failure / trach and nocturnal vent dependence Seizure disorder Hypothyroidism MDR infections (UTI, sacral wound) Check official result of GB US (pending) CPAP and Trach collar if tolerated Lasix x 1 today Monitor off pressors ABX per ID NGT feeds Monitor CXR Aspiration precautions VTE prophylaxis BD TX Local skin care Dr Fox CCTime 35"
[2016-05-10] MEDS ORDERED: FUROSEMIDE 40 MG/4 ML INJECTABLE VIAL IVPUSH ONE (09:42)
[2016-05-10] MEDS: FLUCONAZOLE 400 MG/D5W 200 ML IVPB SCH (11:00)
[2016-05-10] MEDS: SILVER SULFADIAZINE 1% TOP CREAM 50 GM JAR TP SCH (12:09)
--- NOTE | 2016-05-10 12:59 | PN ---
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, Physician Chief Complaint: AWAKE AND ALERT SISTER IS BEDSIDE STILL NOT TAKING IN PO INTAKE NGT IN PLACE - Current Medication List Current Medications: Active Medications Acetaminophen (Tylenol -) 650 mg PO Q6H PRN PRN Reason: FEVER OR PAIN Last Admin: 05/10/16 02:44 Dose: 650 mg Albuterol/Ipratropium (Duoneb -) 1 amp NEB Q6HPO [facility] Last Admin: 05/10/16 12:39 Dose: 1 amp Amino Acids (Prosource No Carb Liquid Pkt) 30 ml NGT DAILY [facility] Last Admin: 05/10/16 09:13 Dose: 30 ml Enoxaparin Sodium (Lovenox -) 40 mg SQ DAILY [facility] Last Admin: 05/10/16 09:13 Dose: 40 mg Hydrocortisone Sodium Succinate (Solu-Cortef -) 20 mg IVPB Q8H-IV [facility] Last Admin: 05/10/16 12:32 Dose: Not Given Norepinephrine Bitartrate 8, (000 mcg/ Dextrose) 500 mls @ 18.75 mls/hr IV TITR [facility]; 5 MCG/MIN PRN Reason: Protocol Last Admin: 05/09/16 13:00 Dose: Not Given Pantoprazole Sodium (Protonix 40mg Ivpb (Pre-Docked)) 100 mls @ 200 mls/hr IVPB BID [facility] Last Admin: 05/10/16 09:12 Dose: 200 mls/hr Meropenem 500 mg/ Sodium (Chloride) 100 mls @ 200 mls/hr IVPB Q8H-IV [facility] Last Admin: 05/10/16 09:13 Dose: 200 mls/hr Fluconazole (Diflucan 400 Mg/D5w Premixed Ivpb -) 200 mls @ 200 mls/hr IVPB DAILY [facility] Last Admin: 05/10/16 11:00 Dose: 200 mls/hr Levothyroxine Sodium (Synthroid -) 88 mcg PO DAILY@0700 [facility] Last Admin: 05/10/16 06:21 Dose: 88 mcg Mirtazapine (Remeron -) 7.5 mg PO HS [facility] Last Admin: 05/09/16 21:49 Dose: 7.5 mg Mupirocin (Bactroban 2% Ointment -) 1 applic TP BID [facility] Last Admin: 05/10/16 09:23 Dose: 1 applic Silver Sulfadiazine (Silvadene -) 1 applic TP DAILY [facility] Last Admin: 05/10/16 12:09 Dose: 1 applic Sodium Chloride (Normal Saline -) 720 ml IV Q20M PRN PRN Reason: MAP<65mm Hg OR SBP <90 Last Admin: 05/04/16 17:28 Dose: 720 ml - Objective Vital Signs: Vital Signs Temperature 98.8 F 05/10/16 12:00 Pulse Rate 74 05/10/16 12:00 Respiratory Rate 16 05/10/16 12:00 Blood Pressure 157/77 05/10/16 12:00 O2 Sat by Pulse Oximetry (%) 95 05/10/16 09:05 Constitutional: Yes: Mild Distress Eyes: Yes: WNL HENT: Yes: WNL Neck: Yes: WNL Cardiovascular: Yes: WNL Respiratory: Yes: Mechanically Ventilated Gastrointestinal: Yes: WNL Musculoskeletal: Yes: Muscle Weakness Extremities: Yes: Other Edema: Yes Edema: LLE: Trace, RLE: Trace Peripheral Pulses WNL: Yes Integumentary: Yes: Pressure Ulcer Wound/Incision: Yes: Dressing Dry and Intact, Unapproximated Neurological: Yes: Pre-Existing Deficit, Weakness ...Motor Strength: LLE, RLE Psychiatric: Yes: Other Labs: CBC, BMP 05/10/16 05:00 05/10/16 05:00 INR, PTT INR 1.22 (0.82-1.09) H 05/05/16 08:10 Assessment/Plan PATIENT DID NOT TOLERATE CPAP FOR LONG CAN CONTINUE TOLERATED WILL NOT FEED PO UNTIL SHE IS BREATHING BETTER MS REFERRAL TO [facility] OUTPATIENT FOR HOME SERVICES DISCUSSED WITH HER SISTER ALVAREZ
--- NOTE | 2016-05-10 15:01 | PN ---
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 NGT in place. Still on ventilator. Selected Entries 05/09/16 05/09/16 05/09/16 02:00 05:00 08:00 Breakfast Temperature 100.1 F H 101.2 F H 98.4 F 05/09/16 05/09/16 05/09/16 10:00 14:00 20:00 Breakfast Temperature 98.2 F 99 F 99.4 F 05/09/16 05/10/16 05/10/16 22:00 00:00 02:00 Breakfast Temperature 99.6 F 99.1 F 99.9 F H 05/10/16 05/10/16 05/10/16 02:52 06:00 08:00 Breakfast Temperature 100.2 F H 100.8 F H 100.3 F H 05/10/16 05/10/16 05/10/16 09:43 09:47 12:00 Breakfast NPO Temperature 99.2 F 98.8 F Laboratory Tests 05/08/16 05/09/16 05/10/16 05:35 05:55 05:00 WBC 20.2 H D 14.9 H 14.0 H To defer PO trial at this time as discussed with staff. Risk of aspiration not indicated at this time, until pt is stronger and respiratory function improves. Reviewed with pt, mother and sister, who understand and agree.
[2016-05-10] MEDS: NOREPINEPHRINE BITARTRATE 8,000 MCG in DEXTROSE 5%-WATER - 492 ML IV SCH (15:50)
[2016-05-10] MEDS: MIRTAZAPINE 15 MG TABLET (FP) PO SCH (23:00)
[2016-05-11] MEDS: MEROPENEM 500 MG in SODIUM CHLORIDE 100 ML IVPB SCH (03:00)
[2016-05-11] MEDS: HYDROCORTISONE SOD SUCCINATE 100 MG/2 ML VIAL IVPB SCH ×3 (03:28→18:49)
[2016-05-11] MEDS: ALBUTEROL SO4 2.5/IPRATROPIUM 0.5 INH SOL 3 ML VIAL.NEB. NEB SCH ×3 (05:38→17:28)
[2016-05-11 06:08] LABS: BASOPHIL 0.1 % (0-2.0); EOSINOPHIL 0.8 % (0-4.5); MCH 31.8 pg (25.7-33.7); MCHC 32.9 g/dl (32.0-36.0); MEAN CELL VOLUME 96.6 fl (80-96); MEAN PLT VOLUME 8.8 fl (7.5-11.1); NEUTROPHILS 82.6 % (42.8-82.8); PLATELET COUNT 190 K/MM3 (134-434); RDW 18.1 % (11.6-15.6); WHITE BLOOD COUNT 9.7 K/mm3 (4.0-10.0)
[2016-05-11] MEDS: LEVOTHYROXINE NA 88 MCG TABLET (FP) PO SCH (06:23)
[2016-05-11 06:30] LABS: ALBUMIN 1.8 g/dl (3.4-5.0); ANION GAP 4 (8-16); CO2 38 mmol/L (21-32); GLUCOSE,RANDOM 124 mg/dL (74-106); MAGNESIUM 2.3 mg/dL (1.8-2.4)
[2016-05-11 06:33] LABS: ALK PHOS 213 U/L (45-117); BILIRUBIN,TOTAL 0.4 mg/dL (0.2-1.0); CREATININE 0.5 mg/dL (0.55-1.02); PHOSPHOROUS 2.4 mg/dL (2.5-4.9); SGOT/AST 81 U/L (15-37); SGPT/ALT 88 U/L (12-78); TOT PROT 5.5 g/dl (6.4-8.2)
[2016-05-11 07:34] LABS: ALLENS TEST POSITIVE; ART PUNCT SITE RIGHT RADIAL; ARTERIAL BLD GAS O2 SATURATION 98.5 % (90-98.9); ARTERIAL BLOOD GAS BASE EXCESS 10.3 meq/l (-2-2); LPM/O2% 40; MECH. VENT. YES; PT. ON O2? YES; TYPE OF O2 VENT; VENT RATE 14; VT/PRESS 450
[2016-05-11] MEDS ORDERED: FUROSEMIDE 40 MG/4 ML INJECTABLE VIAL IVPUSH SCH (07:34)
[2016-05-11] MEDS ORDERED: LACTULOSE 20 GM/30 ML UDC (FOR ORAL USE ONLY) PO PRN ×2 (07:34→18:54)
[2016-05-11 07:35] LABS: ARTERIAL BLOOD GAS pH 7.46 (7.35-7.45)
--- NOTE | 2016-05-11 07:39 | PN ---
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, Physician - Current Medication List Current Medications: Active Medications Acetaminophen (Tylenol -) 650 mg PO Q6H PRN PRN Reason: FEVER OR PAIN Last Admin: 05/10/16 22:59 Dose: 650 mg Albuterol/Ipratropium (Duoneb -) 1 amp NEB Q6HPO [facility] Last Admin: 05/11/16 05:38 Dose: 1 amp Amino Acids (Prosource No Carb Liquid Pkt) 30 ml NGT DAILY [facility] Last Admin: 05/10/16 09:13 Dose: 30 ml Enoxaparin Sodium (Lovenox -) 40 mg SQ DAILY [facility] Last Admin: 05/10/16 09:13 Dose: 40 mg Furosemide (Lasix Injection -) 40 mg IVPUSH ONCE ONE Stop: 05/11/16 07:35 Hydrocortisone Sodium Succinate (Solu-Cortef -) 20 mg IVPB Q8H-IV [facility] Last Admin: 05/11/16 03:28 Dose: 20 mg Norepinephrine Bitartrate 8, (000 mcg/ Dextrose) 500 mls @ 18.75 mls/hr IV TITR [facility]; 5 MCG/MIN PRN Reason: Protocol Last Admin: 05/10/16 15:50 Dose: Not Given Pantoprazole Sodium (Protonix 40mg Ivpb (Pre-Docked)) 100 mls @ 200 mls/hr IVPB BID [facility] Last Admin: 05/10/16 22:59 Dose: 200 mls/hr Meropenem 500 mg/ Sodium (Chloride) 100 mls @ 200 mls/hr IVPB Q8H-IV [facility] Last Admin: 05/11/16 03:00 Dose: 200 mls/hr Fluconazole (Diflucan 400 Mg/D5w Premixed Ivpb -) 200 mls @ 200 mls/hr IVPB DAILY [facility] Last Admin: 05/10/16 11:00 Dose: 200 mls/hr Lactulose (Cephulac (Oral Use)) 20 gm PO HS PRN PRN Reason: CONSTIPATION Levothyroxine Sodium (Synthroid -) 88 mcg PO DAILY@0700 [facility] Last Admin: 05/11/16 06:23 Dose: 88 mcg Mirtazapine (Remeron -) 7.5 mg PO HS [facility] Last Admin: 05/10/16 23:00 Dose: 7.5 mg Mupirocin (Bactroban 2% Ointment -) 1 applic TP BID [facility] Last Admin: 05/10/16 22:59 Dose: 1 applic Silver Sulfadiazine (Silvadene -) 1 applic TP DAILY [facility] Last Admin: 05/10/16 12:09 Dose: 1 applic Sodium Chloride (Normal Saline -) 720 ml IV Q20M PRN PRN Reason: MAP<65mm Hg OR SBP <90 Last Admin: 05/04/16 17:28 Dose: 720 ml - Objective Vital Signs: Vital Signs Temperature 99.3 F 05/11/16 02:00 Pulse Rate 64 05/11/16 06:00 Respiratory Rate 22 05/11/16 06:00 Blood Pressure 137/60 05/11/16 06:00 O2 Sat by Pulse Oximetry (%) 97 05/10/16 20:16 Labs: CBC, BMP 05/11/16 05:00 05/11/16 05:00 INR, PTT INR 1.22 (0.82-1.09) H 05/05/16 08:10 Problem List - Problems (1) Sepsis Code(s): A41.9 - SEPSIS, UNSPECIFIED ORGANISM Qualifiers: Qualified Code(s): A41.9 - Sepsis, unspecified organism (2) Altered mental status Code(s): R41.82 - ALTERED MENTAL STATUS, UNSPECIFIED Qualifiers: Qualified Code(s): R40.4 - Transient alteration of awareness (3) Hyponatremia Code(s): E87.1 - HYPO-OSMOLALITY AND HYPONATREMIA (4) Multiple sclerosis Code(s): G35 - MULTIPLE SCLEROSIS (5) Adrenal insufficiency Code(s): E27.40 - UNSPECIFIED ADRENOCORTICAL INSUFFICIENCY (6) Anemia Code(s): D64.9 - ANEMIA, UNSPECIFIED Qualifiers: Qualified Code(s): D63.8 - Anemia in other chronic diseases classified elsewhere (7) Pneumonia Code(s): J18.9 - PNEUMONIA, UNSPECIFIED ORGANISM (8) Presence of intrathecal baclofen pump Code(s): Z98.89 - OTHER SPECIFIED POSTPROCEDURAL STATES * DO NOT USE *
--- NOTE | 2016-05-11 08:23 | PN ---
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, Physician Chief Complaint: ID Clearly much improved since admission Full alert and awake Day 7 antibiotics Meropenem - Current Medication List Current Medications: Active Medications Acetaminophen (Tylenol -) 650 mg PO Q6H PRN PRN Reason: FEVER OR PAIN Last Admin: 05/10/16 22:59 Dose: 650 mg Albuterol/Ipratropium (Duoneb -) 1 amp NEB Q6HPO [facility] Last Admin: 05/11/16 05:38 Dose: 1 amp Amino Acids (Prosource No Carb Liquid Pkt) 30 ml NGT DAILY [facility] Last Admin: 05/10/16 09:13 Dose: 30 ml Enoxaparin Sodium (Lovenox -) 40 mg SQ DAILY [facility] Last Admin: 05/10/16 09:13 Dose: 40 mg Furosemide (Lasix Injection -) 40 mg 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 [facility] Stop: 05/11/16 14:00 Hydrocortisone Sodium Succinate (Solu-Cortef -) 20 mg IVPB Q8H-IV [facility] Last Admin: 05/11/16 03:28 Dose: 20 mg Norepinephrine Bitartrate 8, (000 mcg/ Dextrose) 500 mls @ 18.75 mls/hr IV TITR [facility]; 5 MCG/MIN PRN Reason: Protocol Last Admin: 05/10/16 15:50 Dose: Not Given Pantoprazole Sodium (Protonix 40mg Ivpb (Pre-Docked)) 100 mls @ 200 mls/hr IVPB BID [facility] Last Admin: 05/10/16 22:59 Dose: 200 mls/hr Meropenem 500 mg/ Sodium (Chloride) 100 mls @ 200 mls/hr IVPB Q8H-IV [facility] Last Admin: 05/11/16 03:00 Dose: 200 mls/hr Fluconazole (Diflucan 400 Mg/D5w Premixed Ivpb -) 200 mls @ 200 mls/hr IVPB DAILY [facility] Last Admin: 05/10/16 11:00 Dose: 200 mls/hr Lactulose (Cephulac (Oral Use)) 20 gm PO HS PRN PRN Reason: CONSTIPATION Levothyroxine Sodium (Synthroid -) 88 mcg PO DAILY@0700 [facility] Last Admin: 05/11/16 06:23 Dose: 88 mcg Mirtazapine (Remeron -) 7.5 mg PO HS [facility] Last Admin: 05/10/16 23:00 Dose: 7.5 mg Mupirocin (Bactroban 2% Ointment -) 1 applic TP BID [facility] Last Admin: 05/10/16 22:59 Dose: 1 applic Silver Sulfadiazine (Silvadene -) 1 applic TP DAILY [facility] Last Admin: 05/10/16 12:09 Dose: 1 applic Sodium Chloride (Normal Saline -) 720 ml IV Q20M PRN PRN Reason: MAP<65mm Hg OR SBP <90 Last Admin: 05/04/16 17:28 Dose: 720 ml - Objective Vital Signs: Vital Signs Temperature 99.3 F 05/11/16 02:00 Pulse Rate 64 05/11/16 06:00 Respiratory Rate 22 05/11/16 06:00 Blood Pressure 137/60 05/11/16 06:00 O2 Sat by Pulse Oximetry (%) 97 05/10/16 20:16 Constitutional: Yes: Well Nourished, No Distress Neck: Yes: Other (Trachesotomy) Cardiovascular: Yes: Regular Rate and Rhythm, S1, S2. No: Murmur Respiratory: Yes: WNL, Regular, CTA Bilaterally Gastrointestinal: Yes: WNL, Normal Bowel Sounds, Soft. No: Tenderness, Tenderness, Rebound Edema: No Labs: CBC, BMP 05/11/16 05:00 05/11/16 05:00 INR, PTT INR 1.22 (0.82-1.09) H 05/05/16 08:10 Problem List - Problems (1) Sepsis syndrome Code(s): CBU8144 - (2) Urinary tract infection Code(s): N39.0 - URINARY TRACT INFECTION, SITE NOT SPECIFIED (3) Multiple sclerosis Code(s): G35 - MULTIPLE SCLEROSIS (4) Respiratory failure Code(s): J96.90 - RESPIRATORY FAILURE, UNSP, UNSP W HYPOXIA OR HYPERCAPNIA (5) Multiple drug resistant organism (MDRO) culture positive Code(s): Z16.24 - RESISTANCE TO MULTIPLE ANTIBIOTICS Assessment/Plan Laboratory Tests 05/11/16 05/11/16 05:00 05:00 WBC 9.7 D Hct 22.6 L MCV 96.6 H Plt Count 190 D BUN 30 H Creatinine 0.5 L Creat Clearance w eGFR > 60 Assessment Sepsis syndrome resolved Respiratory failure Recurrent UTI MS History of resistant organisms Plan Lets stop Meropenem and Fluconazole and observe Discussed wit Dr Lopez 35 minutes critical care time spent today Anam PATIÑO
[2016-05-11] MEDS: PANTOPRAZOLE SODIUM 100 ML IVPB SCH ×2 (11:01→21:20)
[2016-05-11] MEDS: ENOXAPARIN NA (PORCINE) 40 MG/0.4 ML DISP.SYRIN SQ SCH (11:05)
[2016-05-11] MEDS: AMINO ACIDS/PROTEIN HYDROLYS 30 ML LIQUID.PKT NGT SCH (11:05)
[2016-05-11] MEDS: ACETAMINOPHEN 325 MG TABLET (FP) PO PRN (11:06)
[2016-05-11] MEDS ORDERED: FUROSEMIDE 40 MG/4 ML INJECTABLE VIAL ONE (12:27)
[2016-05-11] MEDS ORDERED: HEMOQUE TEST 1 EACH EACH ONE (12:27)
--- NOTE | 2016-05-11 12:45 | PN ---
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 (short form) - Note 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: Renal Followup for Hyponatremia Pt seen and examined in the ICU awake and alert on vent via trach getting ngt feeds no free water given pt wants to eat and drink by mouth Vital Signs Temperature 98.6 F 05/11/16 10:00 Pulse Rate 66 05/11/16 10:00 Respiratory Rate 19 05/11/16 10:00 Blood Pressure 155/55 05/11/16 10:00 O2 Sat by Pulse Oximetry (%) 91 L 05/11/16 12:00 Gen: Awake and alert, NAD HEENT: Trach in place, no JVD CVS: RRR, No M/R Lungs: Dec BS left lung Abd: Soft NT/ND Ext: no edema, clubbing or cyanosis : perera in place CBC, BMP 05/11/16 05:00 05/11/16 05:00 Current Medications Acetaminophen (Tylenol -) 650 mg PO Q6H PRN PRN Reason: FEVER OR PAIN Last Admin: 05/11/16 11:06 Dose: 650 mg Albuterol/Ipratropium (Duoneb -) 1 amp NEB Q6HPO [facility] Last Admin: 05/11/16 11:11 Dose: 1 amp Amino Acids (Prosource No Carb Liquid Pkt) 30 ml NGT DAILY [facility] Last Admin: 05/11/16 11:05 Dose: 30 ml Enoxaparin Sodium (Lovenox -) 40 mg SQ DAILY [facility] Last Admin: 05/11/16 11:05 Dose: 40 mg Furosemide (Lasix Injection -) 40 mg 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 [facility] Stop: 05/11/16 14:00 Hydrocortisone Sodium Succinate (Solu-Cortef -) 20 mg IVPB Q8H-IV [facility] Last Admin: 05/11/16 11:04 Dose: 20 mg Norepinephrine Bitartrate 8, (000 mcg/ Dextrose) 500 mls @ 18.75 mls/hr IV TITR [facility]; 5 MCG/MIN PRN Reason: Protocol Last Admin: 05/10/16 15:50 Dose: Not Given Pantoprazole Sodium (Protonix 40mg Ivpb (Pre-Docked)) 100 mls @ 200 mls/hr IVPB BID [facility] Last Admin: 05/11/16 11:01 Dose: 200 mls/hr Lactulose (Cephulac (Oral Use)) 20 gm PO HS PRN PRN Reason: CONSTIPATION Levothyroxine Sodium (Synthroid -) 88 mcg PO DAILY@0700 [facility] Last Admin: 05/11/16 06:23 Dose: 88 mcg Mirtazapine (Remeron -) 7.5 mg PO HS [facility] Last Admin: 05/10/16 23:00 Dose: 7.5 mg Mupirocin (Bactroban 2% Ointment -) 1 applic TP BID [facility] Last Admin: 05/10/16 22:59 Dose: 1 applic Potassium Phos/Sodium Phos (Phos-Nak Packet -) 1 packet NGT TID [facility] Stop: 05/12/16 06:01 Silver Sulfadiazine (Silvadene -) 1 applic TP DAILY [facility] Last Admin: 05/10/16 12:09 Dose: 1 applic Sodium Chloride (Normal Saline -) 720 ml IV Q20M PRN PRN Reason: MAP<65mm Hg OR SBP <90 Last Admin: 05/04/16 17:28 Dose: 720 ml A/P 51 year old woman with PMHx of Multiple Sclerosis, Chronic Resp Failure with Trach Collar, Hx of recurrent UTI, Periods of hyponatremia presented with AMS/ Lethargy and found to have Sepsis with Hypotension and Na of 126. #Acute on Chronic Hyponatremia now hypernatremia Hypernatremic due to no free water Free water 60cc per hour added to NGT feeds Trend Na [id number] #Hyperkalemia now resolved off IVF with KCL #Sepsis secondary to UTI ICU monitoring Vent support Keep MAP > 65, CVP 10-12 on Vent IVF as needed Pressers as needed #MS supportive care #Anemia Trend CBC Transfuse as per ICU protocol Tyshawn Doe DO
[2016-05-11] MEDS: MUPIROCIN 2% TOPICAL OINTMENT 22 GM TUBE TP SCH ×2 (13:00→21:22)
--- NOTE | 2016-05-11 13:00 | PN ---
Teaching Attending Note Name of Resident: Mickey Mandel ATTENDING PHYSICIAN STATEMENT I saw and evaluated the patient. I reviewed the resident's note and discussed the case with the resident. I agree with the resident's findings and plan as documented. SUBJECTIVE: Pt seen and examined in the ICU. Vented, tolerating CPAP/PS trials. Off pressors , no fevers recorded. Mental status improving. OBJECTIVE: Last Vital Signs Temp Pulse Resp BP Pulse Ox 98.6 F 66 19 155/55 91 L 05/11/16 10:00 05/11/16 10:00 05/11/16 10:00 05/11/16 10:00 05/11/16 12:00 Intake & Output 05/08/16 05/09/16 05/10/16 05/11/16 23:59 23:59 23:59 23:59 Intake Total 2510 855 2880 780 Output Total 3600 2400 1540 1000 Balance -1090 -1545 1340 -220 Weight 162 lb 4 oz 169 lb 7 oz 154 lb 15.759 oz 168 lb 10.458 oz Gen: vented, awake Heart: RRR Lung: decreased breath sounds at the bases Abd: soft, nontender Ext: trace edema CBC, BMP 05/11/16 05:00 05/11/16 05:00 Active Medications Acetaminophen (Tylenol -) 650 mg PO Q6H PRN PRN Reason: FEVER OR PAIN Last Admin: 05/11/16 11:06 Dose: 650 mg Albuterol/Ipratropium (Duoneb -) 1 amp NEB Q6HPO [facility] Last Admin: 05/11/16 11:11 Dose: 1 amp Amino Acids (Prosource No Carb Liquid Pkt) 30 ml NGT DAILY [facility] Last Admin: 05/11/16 11:05 Dose: 30 ml Enoxaparin Sodium (Lovenox -) 40 mg SQ DAILY [facility] Last Admin: 05/11/16 11:05 Dose: 40 mg Furosemide (Lasix Injection -) 40 mg 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 [facility] Stop: 05/11/16 14:00 Hydrocortisone Sodium Succinate (Solu-Cortef -) 20 mg IVPB Q8H-IV [facility] Last Admin: 05/11/16 11:04 Dose: 20 mg Norepinephrine Bitartrate 8, (000 mcg/ Dextrose) 500 mls @ 18.75 mls/hr IV TITR [facility]; 5 MCG/MIN PRN Reason: Protocol Last Admin: 05/10/16 15:50 Dose: Not Given Pantoprazole Sodium (Protonix 40mg Ivpb (Pre-Docked)) 100 mls @ 200 mls/hr IVPB BID [facility] Last Admin: 05/11/16 11:01 Dose: 200 mls/hr Lactulose (Cephulac (Oral Use)) 20 gm PO HS PRN PRN Reason: CONSTIPATION Levothyroxine Sodium (Synthroid -) 88 mcg PO DAILY@0700 [facility] Last Admin: 05/11/16 06:23 Dose: 88 mcg Mirtazapine (Remeron -) 7.5 mg PO HS [facility] Last Admin: 05/10/16 23:00 Dose: 7.5 mg Mupirocin (Bactroban 2% Ointment -) 1 applic TP BID [facility] Last Admin: 05/10/16 22:59 Dose: 1 applic Potassium Phos/Sodium Phos (Phos-Nak Packet -) 1 packet NGT TID [facility] Stop: 05/12/16 06:01 Silver Sulfadiazine (Silvadene -) 1 applic TP DAILY [facility] Last Admin: 05/10/16 12:09 Dose: 1 applic Sodium Chloride (Normal Saline -) 720 ml IV Q20M PRN PRN Reason: MAP<65mm Hg OR SBP <90 Last Admin: 05/04/16 17:28 Dose: 720 ml ASSESSMENT AND PLAN: UTI Sacral Decubitus Ulcer r/o Pneumonia Septic Shock resolving Altered Mental Status from above improving Multiple Sclerosis Hyponatremia now Hypernatremic Hypothyroidism Adrenal Insufficiency - antibiotics stopped today per ID - reculture if febrile - tolerating CPAP/PS, will attempt trach collar - [place] valve - PO as tolerated once on trach collar - lasix today - inhaled bronchodilators - O2 to keep SpO2 >90% - DVT/GI prophylaxis - can transfer to vent floor
[2016-05-11] MEDS ORDERED: NAPH,MB-DB/K PH,MBDB POWDER PACKET NGT SCH (14:00)
--- NOTE | 2016-05-11 15:23 | PN ---
Physical Exam: SUBJECTIVE: Patient seen and examined at bedside in the ICU. She is trached and on vent at normal mental status baseline. Pt was trying to talk and follows commands fully. Per nurse, no acute event overnight. OBJECTIVE: Trached on mechanical ventilation Vent settings: AC, RR 14, TV 450, FiO2 40, PEEP 5 Off pressor and sedation Period Temp Pulse Resp BP Sys/Morillo Pulse Ox Last 24 Hr 98.6 F-100 F 58-76 11-29 115-156/53-82 91-100 GENERAL: The patient is awake, alert, fully oriented EYES: pupils equal and reactive to light ENT: NG tube in place LUNGS: lound b/l rhonchi HEART: RRR ABDOMEN: Soft, nontender, nondistended, normoactive bowel sounds EXTREMITIES: No sign of new rash, dry and healed blisters, no edema : perera in place, light yellow urine ABG Results ABG pH 7.46 (7.35-7.45) H 05/11/16 07:10 ABG pCO2 at Pt Temp 50.3 mmHg (35-45) H 05/11/16 07:10 ABG pO2 at Pt Temp 108.0 mmHg (80-100) H 05/11/16 07:10 ABG HCO3 35.0 meq/L (22-26) H 05/11/16 07:10 ABG O2 Sat (Measured) 98.5 % (90-98.9) 05/11/16 07:10 ABG O2 Content 10.0 % vol (15-22) L 05/11/16 07:10 ABG Base Excess 10.3 meq/l (-2-2) H 05/11/16 07:10 CBCD WBC 9.7 K/mm3 (4.0-10.0) D 05/11/16 05:00 RBC 2.34 M/mm3 (3.60-5.2) L 05/11/16 05:00 Hgb 7.4 GM/dL (10.7-15.3) L 05/11/16 05:00 Hct 22.6 % (32.4-45.2) L 05/11/16 05:00 MCV 96.6 fl (80-96) H 05/11/16 05:00 MCHC 32.9 g/dl (32.0-36.0) 05/11/16 05:00 RDW 18.1 % (11.6-15.6) H 05/11/16 05:00 Plt Count 190 K/MM3 (134-434) D 05/11/16 05:00 MPV 8.8 fl (7.5-11.1) 05/11/16 05:00 CMP Sodium 149 mmol/L (136-145) H 05/11/16 05:00 Potassium 4.8 mmol/L (3.5-5.1) 05/11/16 05:00 Chloride 107 mmol/L (98-107) 05/11/16 05:00 Carbon Dioxide 38 mmol/L (21-32) H 05/11/16 05:00 Anion Gap 4 (8-16) L 05/11/16 05:00 BUN 30 mg/dL (7-18) H 05/11/16 05:00 Creatinine 0.5 mg/dL (0.55-1.02) L 05/11/16 05:00 Creat Clearance w eGFR > 60 (>60) 05/11/16 05:00 Calcium 9.0 mg/dL (8.5-10.1) 05/11/16 05:00 Total Bilirubin 0.4 mg/dL (0.2-1.0) 05/11/16 05:00 AST 81 U/L (15-37) H 05/11/16 05:00 ALT 88 U/L (12-78) H D 05/11/16 05:00 Alkaline Phosphatase 213 U/L (45-117) H 05/11/16 05:00 Total Protein 5.5 g/dl (6.4-8.2) L 05/11/16 05:00 Albumin 1.8 g/dl (3.4-5.0) L 05/11/16 05:00 Intake & Output 05/08/16 05/09/16 05/10/16 05/11/16 23:59 23:59 23:59 23:59 Intake Total 2510 855 2880 780 Output Total 3600 2400 1540 1000 Balance -1090 -1545 1340 -220 Weight 73.595 kg 76.856 kg 70.3 kg 76.5 kg Active Medications Generic Name Dose Route Start Last Admin Trade Name Freq PRN Reason Stop Dose Admin Acetaminophen 650 mg 05/04/16 21:42 05/11/16 11:06 Tylenol - PO 650 mg Q6H PRN Administration FEVER OR PAIN Albuterol/Ipratropium 1 amp 05/08/16 00:00 05/11/16 11:11 Duoneb - NEB 1 amp Q6HPO CATH[facility]INE Administration Amino Acids 30 ml 05/08/16 10:00 05/11/16 11:05 Prosource No Carb Liquid Pkt NGT 30 ml DAILY CATHERINE Administration Enoxaparin Sodium 40 mg 05/08/16 10:00 05/11/16 11:05 Lovenox - SQ 40 mg DAILY C[facility]INE Administration Hydrocortisone Sodium Succinate 20 mg 05/10/16 09:42 05/11/16 11:04 Solu-Cortef - IVPB 20 mg Q8H-IV CATHERINE Administration Norepinephrine Bitartrate 8, 500 mls @ 18.75 mls/hr 05/05/16 13:00 05/10/16 15: 50 000 mcg/ Dextrose IV Not Given TITR CATHERINE Protocol 5 MCG/MIN Pantoprazole Sodium 100 mls @ 200 mls/hr 05/07/16 22:00 05/11/16 11:01 Protonix 40mg Ivpb (Pre-Docked) IVPB 200 mls/hr BID [facility]INE Administration Lactulose 20 gm 05/11/16 07:34 Cephulac (Oral Use) PO HS PRN CONSTIPATION Levothyroxine Sodium 88 mcg 05/08/16 07:00 05/11/16 06:23 Synthroid - PO 88 mcg DAILY@0700 C[facility]INE Administration Mirtazapine 7.5 mg 05/07/16 22:00 05/10/16 23:00 Remeron - PO 7.5 mg HS C[facility]ERINE Administration Mupirocin 1 applic 05/07/16 22:00 05/10/16 22:59 Bactroban 2% Ointment - TP 1 applic BID C[facility]ERINE Administration Potassium Phos/Sodium Phos 1 packet 05/11/16 14:00 Phos-Nak Packet - NGT 05/12/16 06:01 TID CATHERINE Silver Sulfadiazine 1 applic 05/05/16 11:45 05/10/16 12:09 Silvadene - TP 1 applic DAILY C[facility]INE Administration Sodium Chloride 720 ml 05/04/16 12:07 05/04/16 17:28 Normal Saline - IV 720 ml Q20M PRN Administration MAP<65mm Hg OR SBP <90 Microbiology 05/09/16 11:23 Blood - Peripheral Venous Blood Culture - Preliminary NO GROWTH OBTAINED AFTER 48 HOURS, INCUBATION TO CONTINUE FOR 3 DAYS. 05/09/16 11:35 Blood - Peripheral Venous Blood Culture - Preliminary NO GROWTH OBTAINED AFTER 48 HOURS, INCUBATION TO CONTINUE FOR 3 DAYS. Imaging: CXR /: NG tube in place, tracheostomy tube, scoliosis, large heart, prominent knob and congestive changes with bibasilar infiltrates ASSESSMENT/PLAN: 51 yo F h/o HTN, multiple sclerosis with quadraplegia, chronic urinary retention and chronic respiratory insufficiency, seizure disorder and hypothyroidism admitted to the ICU for baclofen toxicity vs. sepsis 2/2 UTI. Patient is trached and on venti-mask during the day and on vent at night. She had multiple admissions for MDR infections such as UTI and decubitus ulcer in the sacral. Neuro: AMS 2/2 urosepsis in the setting of deteriorating MS - Mental status now at baseline - Cont. AED and zolof - Neuro check Q2H Pulm: Chronic respiratory insufficiency 2/2 ?MS - Trached on vent: see settings above - Did not tolerate CPAP for > 4 hours - Trach collar with passy tenzin valve as tolerated - Maintain O2 Sat. > 88% - Nebulizers PRN - Daily CXR ID: Sepsis 2/2 UTI, Complicated vs Sacral decubitus ulcers; pneumonia - Indwelling perera catheter - H/O MDR infections: UTI, PNA, shingles, WBC 537 on UA - Normal WBC today and afrebile - Routine wound care for decub. ulcers - Completed antibiotics course - On diflucan only Renal/: UTI in the setting of chronic urinary retention - Fluid held PRN if MAP < 65% - Maintain perera for urinary retention - On abx treatment Heme: Macrocytic Anemia - Baseline HGB @ 8.6-10 - Transfuse if HGB < 7 Cardiac: Hypotension - Stable off pressors - Maintain MAP > 65% Endo: Hypothyrodism and ?adrenal insufficiency - Normal TSH and free T4 - Cont. synthroid Derm: Lower extremity purpura 2/2 drug allergy vs. skin irritation - Rashes resolved - Bactroban per derm - Monitor closely FEN - Tube feed with free water added - Hypernatremia, correct with free water - TwoCal with high concentration and water 60ml/hr added - Prophylaxis - DVT: lovenox 40mg QD - GI: on PPI Disposition - S&S reeval for PO on trach collar - Transfer to 5th floor Code status - Full code Visit type - Emergency Visit Emergency Visit: No - New Patient This patient is new to me today: No - Critical Care Critical Care patient: Yes Total Critical Care Time (in minutes): 45 Critical Care Statement: The care of this patient involved high complexity decision making to prevent further life threatening deterioration of the patient 's condition and/or to evalute & treat vital organ system(s) failure or risk of failure.
[2016-05-11] MEDS: SILVER SULFADIAZINE 1% TOP CREAM 50 GM JAR TP SCH (15:29)
[2016-05-11] MEDS: NOREPINEPHRINE BITARTRATE 8,000 MCG in DEXTROSE 5%-WATER - 492 ML IV SCH (15:29)
[2016-05-11] MEDS ORDERED: SODIUM CHLORIDE 0.9% 1000 ML INFUS.BAG IV PRN (18:54)
[2016-05-11] MEDS ORDERED: ACETAMINOPHEN 325 MG TABLET (FP) PO PRN (18:54)
[2016-05-11] MEDS: NAPH,MB-DB/K PH,MBDB POWDER PACKET NGT SCH (21:20)
[2016-05-11] MEDS ORDERED: MIRTAZAPINE 15 MG TABLET (FP) PO SCH (22:00)
[2016-05-12] MEDS: ALBUTEROL SO4 2.5/IPRATROPIUM 0.5 INH SOL 3 ML VIAL.NEB. NEB SCH ×5 (01:16→23:41)
[2016-05-12] MEDS: HYDROCORTISONE SOD SUCCINATE 100 MG/2 ML VIAL IVPB SCH ×4 (02:36→18:35)
[2016-05-12] MEDS: NAPH,MB-DB/K PH,MBDB POWDER PACKET NGT SCH (05:31)
[2016-05-12] MEDS ORDERED: PT OWN MED DRAWER 7, Y5N ONE (06:09)
[2016-05-12 06:31] LABS: MCH 30.1 pg (25.7-33.7); MCHC 33.4 g/dl (32.0-36.0); MEAN CELL VOLUME 90.1 fl (80-96); MEAN PLT VOLUME 8.5 fl (7.5-11.1); PLATELET COUNT 251 K/MM3 (134-434); RDW 19.3 % (11.6-15.6); WHITE BLOOD COUNT 12.7 K/mm3 (4.0-10.0)
[2016-05-12] MEDS ORDERED: LEVOTHYROXINE NA 88 MCG TABLET (FP) PO SCH (07:00)
[2016-05-12 07:13] LABS: CALCIUM 8.9 mg/dL (8.5-10.1); CREATININE 0.4 mg/dL (0.55-1.02); MAGNESIUM 2.2 mg/dL (1.8-2.4); PHOSPHOROUS 3.1 mg/dL (2.5-4.9)
[2016-05-12] MEDS ORDERED: FUROSEMIDE 40 MG/4 ML INJECTABLE VIAL IVPB ONE (08:16)
--- NOTE | 2016-05-12 08:23 | PN ---
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, Physician History of Present Illness: more lethargic - Current Medication List Current Medications: Active Medications Acetaminophen (Tylenol -) 650 mg PO Q6H PRN PRN Reason: FEVER OR PAIN Last Admin: 05/11/16 21:24 Dose: 650 mg Albuterol/Ipratropium (Duoneb -) 1 amp NEB QIDR [facility] Last Admin: 05/12/16 05:56 Dose: 1 amp Amino Acids (Prosource No Carb Liquid Pkt) 30 ml NGT DAILY [facility] Enoxaparin Sodium (Lovenox -) 40 mg SQ DAILY [facility] Furosemide (Lasix Injection -) 40 mg IVPB ONCE ONE Stop: 05/12/16 08:17 Hydrocortisone Sodium Succinate (Solu-Cortef -) 20 mg IVPB Q8H-IV [facility] Last Admin: 05/12/16 02:36 Dose: 20 mg Pantoprazole Sodium (Protonix 40mg Ivpb (Pre-Docked)) 100 mls @ 200 mls/hr IVPB BID [facility] Last Admin: 05/11/16 21:20 Dose: 200 mls/hr Lactulose (Cephulac (Oral Use)) 20 gm PO HS PRN PRN Reason: CONSTIPATION Levothyroxine Sodium (Synthroid -) 88 mcg PO DAILY@0700 [facility] Last Admin: 05/12/16 06:05 Dose: 88 mcg Mirtazapine (Remeron -) 7.5 mg PO HS [facility] Last Admin: 05/11/16 21:21 Dose: 7.5 mg Mupirocin (Bactroban 2% Ointment -) 1 applic TP BID [facility] Last Admin: 05/11/16 21:22 Dose: 1 applic Sodium Chloride (Normal Saline -) 720 ml IV Q20M PRN PRN Reason: MAP<65mm Hg OR SBP <90 - Objective Vital Signs: Vital Signs Temperature 99 F 05/12/16 06:00 Pulse Rate 58 L 05/12/16 06:00 Respiratory Rate 16 05/12/16 07:35 Blood Pressure 140/60 05/12/16 06:00 O2 Sat by Pulse Oximetry (%) 97 05/11/16 22:00 Cardiovascular: Yes: S1, S2 Respiratory: Yes: Mechanically Ventilated, Rales, Rhonchi Gastrointestinal: Yes: Normal Bowel Sounds, Soft Labs: CBC, BMP 05/12/16 05:00 05/12/16 05:00 INR, PTT INR 1.22 (0.82-1.09) H 05/05/16 08:10 Problem List - Problems (1) Sepsis Assessment/Plan: OFF IV ABX RPT CULTURES NEGATIVE ID CONSULT NOTED Code(s): A41.9 - SEPSIS, UNSPECIFIED ORGANISM Qualifiers: Qualified Code(s): A41.9 - Sepsis, unspecified organism (2) Altered mental status Assessment/Plan: IMPROVED AT BASELINE Code(s): R41.82 - ALTERED MENTAL STATUS, UNSPECIFIED Qualifiers: Qualified Code(s): R40.4 - Transient alteration of awareness (3) Hyponatremia Assessment/Plan: IMPROVED IVF MONITOR Code(s): E87.1 - HYPO-OSMOLALITY AND HYPONATREMIA (4) Multiple sclerosis Assessment/Plan: NEURO ON CASE Code(s): G35 - MULTIPLE SCLEROSIS (5) Adrenal insufficiency Code(s): E27.40 - UNSPECIFIED ADRENOCORTICAL INSUFFICIENCY (6) Anemia Assessment/Plan: REPEAT PENDING S/P TRANSFUSION -HGB 10 Code(s): D64.9 - ANEMIA, UNSPECIFIED Qualifiers: Qualified Code(s): D63.8 - Anemia in other chronic diseases classified elsewhere (7) Pneumonia Assessment/Plan: OFF IV ABX CXR NOTED-WORSENING--MAYBE COMPONENT OFFLUID LASIX RPT CXR Code(s): J18.9 - PNEUMONIA, UNSPECIFIED ORGANISM (8) Presence of intrathecal baclofen pump Assessment/Plan: PER NEURO Code(s): Z98.89 - OTHER SPECIFIED POSTPROCEDURAL STATES * DO NOT USE *
[2016-05-12] MEDS: PANTOPRAZOLE SODIUM 100 ML IVPB SCH ×2 (09:14→22:09)
--- NOTE | 2016-05-12 09:47 | PN ---
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, [employer] - Note 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: Chart reviewed and case discussed with staff. Selected Entries 05/10/16 05/10/16 05/10/16 00:00 02:00 02:52 Supper Temperature 99.1 F 99.9 F H 100.2 F H 05/10/16 05/10/16 05/10/16 06:00 08:00 09:47 Supper Temperature 100.8 F H 100.3 F H 99.2 F 05/10/16 05/10/16 05/10/16 12:00 14:00 16:00 Supper Temperature 98.8 F 98.7 F 100 F H 05/10/16 05/10/16 05/11/16 19:00 23:00 02:00 Supper Temperature 98.9 F 99.9 F H 99.3 F 05/11/16 05/11/16 05/11/16 10:00 14:00 16:00 Supper Temperature 98.6 F 97.6 F 98.4 F 05/11/16 05/11/16 05/11/16 18:00 20:00 22:00 Supper NPO Temperature 98.9 F 99.2 F 99.1 F 05/12/16 05/12/16 05/12/16 00:00 02:00 04:00 Supper Temperature 98.8 F 98.8 F 98.8 F 05/12/16 05/12/16 06:00 08:00 Supper Temperature 99 F 98.4 F Laboratory Tests 05/10/16 05/11/16 05/12/16 05:00 05:00 05:00 WBC 14.0 H 9.7 D 12.7 H D Order to reassess swallowing at bedside. Pt on trach collar, but dyspneic. o2 87. NGT in place. CXR worse. Case reviewed with staff. Pt will be placed back on ventilator. Respiratory function impaired/needs support. Bedside evaluation deferred.
[2016-05-12] MEDS ORDERED: AMINO ACIDS/PROTEIN HYDROLYS 30 ML LIQUID.PKT NGT SCH (10:00)
[2016-05-12] MEDS ORDERED: ENOXAPARIN NA (PORCINE) 40 MG/0.4 ML DISP.SYRIN SQ SCH (10:00)
--- NOTE | 2016-05-12 10:50 | PN ---
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 (short form) - Note 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: NAD antibiotics d/asif yesterday (meropenem) stable on steroids/ivf Vital Signs Period Temp Pulse Resp BP Sys/Morillo Pulse Ox Last 24 Hr 97.6 F-99.2 F 50-74 12-24 121-156/47-83 91-98 trach to vent cor-rrr lungs decreased bs at bases abd soft,nt ext traced pedal edema CBC, BMP 05/12/16 05:00 05/12/16 05:00 Microbiology 05/05/16 02:00 Respiratory Virus Panel - Final Nasopharyngeal Swab 05/09/16 11:23 Blood Culture - Preliminary Blood - Peripheral Venous NO GROWTH OBTAINED AFTER 48 HOURS, INCUBATION TO CONTINUE FOR 3 DAYS. 05/09/16 11:35 Blood Culture - Preliminary Blood - Peripheral Venous NO GROWTH OBTAINED AFTER 48 HOURS, INCUBATION TO CONTINUE FOR 3 DAYS. cxray reviewed Current Medications Acetaminophen (Tylenol -) 650 mg PO Q6H PRN PRN Reason: FEVER OR PAIN Last Admin: 05/11/16 21:24 Dose: 650 mg Albuterol/Ipratropium (Duoneb -) 1 amp NEB QIDR [facility] Last Admin: 05/12/16 05:56 Dose: 1 amp Amino Acids (Prosource No Carb Liquid Pkt) 30 ml NGT DAILY [facility] Last Admin: 05/12/16 09:14 Dose: 30 ml Enoxaparin Sodium (Lovenox -) 40 mg SQ DAILY [facility] Last Admin: 05/12/16 09:14 Dose: 40 mg Hydrocortisone Sodium Succinate (Solu-Cortef -) 20 mg IVPB Q8H-IV [facility] Last Admin: 05/12/16 09:14 Dose: 20 mg Pantoprazole Sodium (Protonix 40mg Ivpb (Pre-Docked)) 100 mls @ 200 mls/hr IVPB BID [facility] Last Admin: 05/12/16 09:14 Dose: 200 mls/hr Lactulose (Cephulac (Oral Use)) 20 gm PO HS PRN PRN Reason: CONSTIPATION Levothyroxine Sodium (Synthroid -) 88 mcg PO DAILY@0700 [facility] Last Admin: 05/12/16 06:05 Dose: 88 mcg Mirtazapine (Remeron -) 7.5 mg PO HS [facility] Last Admin: 05/11/16 21:21 Dose: 7.5 mg Mupirocin (Bactroban 2% Ointment -) 1 applic TP BID [facility] Last Admin: 05/11/16 21:22 Dose: 1 applic Sodium Chloride (Normal Saline -) 720 ml IV Q20M PRN PRN Reason: MAP<65mm Hg OR SBP <90 a/p sepsis syndrome- resolved, now alert, antibiotics d/asif after 7 days chronic respiratory failure MS history of resistant organisms- contact isolation to continue
--- NOTE | 2016-05-12 11:41 | PN ---
Teaching Attending Note Name of Resident: Mickey Mandel ATTENDING PHYSICIAN STATEMENT I saw and evaluated the patient. I reviewed the resident's note and discussed the case with the resident. I agree with the resident's findings and plan as documented. SUBJECTIVE: Pt seen and examined in the ICU. Did not tolerate CPAP/PS trials this AM, was asymptomatic but desaturated. Diuresed well with lasix yesterday. No fevers recorded. OBJECTIVE: Last Vital Signs Temp Pulse Resp BP Pulse Ox 98.3 F 73 14 156/83 92 L 05/12/16 10:00 05/12/16 10:00 05/12/16 10:00 05/12/16 10:00 05/12/16 09:25 Intake & Output 05/09/16 05/10/16 05/11/16 05/12/16 23:59 23:59 23:59 23:59 Intake Total 855 2880 3504 1026 Output Total 2400 1540 4450 600 Balance -1545 1340 -946 426 Weight 169 lb 7 oz 154 lb 15.759 oz 168 lb 10.458 oz 162 lb 6.4 oz Gen: vented, awake Heart: RRR Lung: distant breath sounds Abd: soft, nontender Ext: trace edema CBC, BMP 05/12/16 05:00 05/12/16 05:00 Active Medications Acetaminophen (Tylenol -) 650 mg PO Q6H PRN PRN Reason: FEVER OR PAIN Last Admin: 05/11/16 21:24 Dose: 650 mg Albumin Human (Albumin Human 25% -) 25 gm IVPB Q30M [facility] Stop: 05/12/16 13:01 Albuterol/Ipratropium (Duoneb -) 1 amp NEB QIDR [facility] Last Admin: 05/12/16 05:56 Dose: 1 amp Amino Acids (Prosource No Carb Liquid Pkt) 30 ml NGT DAILY [facility] Last Admin: 05/12/16 09:14 Dose: 30 ml Enoxaparin Sodium (Lovenox -) 40 mg SQ DAILY [facility] Last Admin: 05/12/16 09:14 Dose: 40 mg Furosemide (Lasix Injection -) 40 mg IVPUSH ONCE ONE Stop: 05/12/16 15:01 Hydrocortisone Sodium Succinate (Solu-Cortef -) 20 mg IVPB Q8H-IV [facility] Last Admin: 05/12/16 09:14 Dose: 20 mg Pantoprazole Sodium (Protonix 40mg Ivpb (Pre-Docked)) 100 mls @ 200 mls/hr IVPB BID [facility] Last Admin: 05/12/16 09:14 Dose: 200 mls/hr Lactulose (Cephulac (Oral Use)) 20 gm PO HS PRN PRN Reason: CONSTIPATION Levothyroxine Sodium (Synthroid -) 88 mcg PO DAILY@0700 [facility] Last Admin: 05/12/16 06:05 Dose: 88 mcg Mirtazapine (Remeron -) 7.5 mg PO HS [facility] Last Admin: 05/11/16 21:21 Dose: 7.5 mg Mupirocin (Bactroban 2% Ointment -) 1 applic TP BID [facility] Last Admin: 05/11/16 21:22 Dose: 1 applic Sodium Chloride (Normal Saline -) 720 ml IV Q20M PRN PRN Reason: MAP<65mm Hg OR SBP <90 ASSESSMENT AND PLAN: UTI Sacral Decubitus Ulcer r/o Pneumonia Septic Shock resolving Altered Mental Status from above improving Multiple Sclerosis Hyponatremia now Hypernatremic Hypothyroidism Adrenal Insufficiency - monitoring off antibiotics - reculture if febrile - albumin boluses with lasix pushes - reattempt CPAP/PS in PM - PO as tolerated once on trach collar - inhaled bronchodilators - O2 to keep SpO2 >90% - enteral feeds - DVT/GI prophylaxis - can transfer to vent floor
[2016-05-12] MEDS: MUPIROCIN 2% TOPICAL OINTMENT 22 GM TUBE TP SCH ×2 (12:00→22:10)
--- NOTE | 2016-05-12 12:03 | PN ---
Physical Exam: SUBJECTIVE: Patient seen and examined at bedside in the ICU. She is trached and on vent at normal mental status baseline. Per nurse, no acute event overnight. OBJECTIVE: Trached on mechanical ventilation Vent settings: AC, RR 14, TV 450, FiO2 40, PEEP 5 Off pressor and sedation Vital Signs Period Temp Pulse Resp BP Sys/Morillo Pulse Ox Last 24 Hr 97.6 F-99.2 F 50-77 12-24 121-156/47-83 91-98 GENERAL: The patient is awake, alert, fully oriented EYES: pupils equal and reactive to light ENT: NG tube in place LUNGS: lound b/l rhonchi HEART: RRR ABDOMEN: Soft, nontender, nondistended, normoactive bowel sounds EXTREMITIES: No sign of new rash, dry and healed blisters, no edema : perera in place, light yellow urine CBCD WBC 12.7 K/mm3 (4.0-10.0) H D 05/12/16 05:00 RBC 3.41 M/mm3 (3.60-5.2) L D 05/12/16 05:00 Hgb 10.3 GM/dL (10.7-15.3) L D 05/12/16 05:00 Hct 30.7 % (32.4-45.2) L D 05/12/16 05:00 MCV 90.1 fl (80-96) 05/12/16 05:00 MCHC 33.4 g/dl (32.0-36.0) 05/12/16 05:00 RDW 19.3 % (11.6-15.6) H 05/12/16 05:00 Plt Count 251 K/MM3 (134-434) D 05/12/16 05:00 MPV 8.5 fl (7.5-11.1) 05/12/16 05:00 CMP Sodium 146 mmol/L (136-145) H 05/12/16 05:00 Potassium 5.0 mmol/L (3.5-5.1) 05/12/16 05:00 Chloride 102 mmol/L (98-107) 05/12/16 05:00 Carbon Dioxide 36 mmol/L (21-32) H 05/12/16 05:00 Anion Gap 8 (8-16) 05/12/16 05:00 BUN 31 mg/dL (7-18) H 05/12/16 05:00 Creatinine 0.4 mg/dL (0.55-1.02) L 05/12/16 05:00 Creat Clearance w eGFR > 60 (>60) 05/11/16 05:00 Calcium 8.9 mg/dL (8.5-10.1) 05/12/16 05:00 Total Bilirubin 0.4 mg/dL (0.2-1.0) 05/11/16 05:00 AST 81 U/L (15-37) H 05/11/16 05:00 ALT 88 U/L (12-78) H D 05/11/16 05:00 Alkaline Phosphatase 213 U/L (45-117) H 05/11/16 05:00 Total Protein 5.5 g/dl (6.4-8.2) L 05/11/16 05:00 Albumin 1.8 g/dl (3.4-5.0) L 05/11/16 05:00 Intake & Output 05/09/16 05/10/16 05/11/16 05/12/16 23:59 23:59 23:59 23:59 Intake Total 855 2880 3504 1026 Output Total 2400 1540 4450 600 Balance -1545 1340 -946 426 Weight 76.856 kg 70.3 kg 76.5 kg 73.663 kg Active Medications Generic Name Dose Route Start Last Admin Trade Name Freq PRN Reason Stop Dose Admin Acetaminophen 650 mg 05/11/16 18:54 05/11/16 21:24 Tylenol - PO 650 mg Q6H PRN Administration FEVER OR PAIN Albumin Human 25 gm 05/12/16 11:30 Albumin Human 25% - IVPB 05/12/16 13:01 Q30M [facility]ERINE Albuterol/Ipratropium 1 amp 05/12/16 00:00 05/12/16 10:40 Duoneb - NEB 1 amp QIDR [facility] Administration Amino Acids 30 ml 05/12/16 10:00 05/12/16 09:14 Prosource No Carb Liquid Pkt NGT 30 ml DAILY [facility] Administration Enoxaparin Sodium 40 mg 05/12/16 10:00 05/12/16 09:14 Lovenox - SQ 40 mg DAILY [facility] Administration Furosemide 40 mg 05/12/16 15:00 Lasix Injection - IVPUSH 05/12/16 15:01 ONCE ONE Hydrocortisone Sodium Succinate 20 mg 05/12/16 02:00 05/12/16 09:14 Solu-Cortef - IVPB 20 mg Q8H-IV [facility] Administration Pantoprazole Sodium 100 mls @ 200 mls/hr 05/11/16 22:00 05/12/16 09:14 Protonix 40mg Ivpb (Pre-Docked) IVPB 200 mls/hr BID [facility] Administration Lactulose 20 gm 05/11/16 18:54 Cephulac (Oral Use) PO HS PRN CONSTIPATION Levothyroxine Sodium 88 mcg 05/12/16 07:00 05/12/16 06:05 Synthroid - PO 88 mcg DAILY@0700 [facility] Administration Mirtazapine 7.5 mg 05/11/16 22:00 05/11/16 21:21 Remeron - PO 7.5 mg HS [facility] Administration Mupirocin 1 applic 05/11/16 22:00 05/11/16 21:22 Bactroban 2% Ointment - TP 1 applic BID [facility] Administration Sodium Chloride 720 ml 05/11/16 18:54 Normal Saline - IV Q20M PRN MAP<65mm Hg OR SBP <90 Microbiology 05/09/16 11:23 Blood - Peripheral Venous Blood Culture - Preliminary NO GROWTH OBTAINED AFTER 72 HOURS, INCUBATION TO CONTINUE FOR 2 DAYS. 05/09/16 11:35 Blood - Peripheral Venous Blood Culture - Preliminary NO GROWTH OBTAINED AFTER 72 HOURS, INCUBATION TO CONTINUE FOR 2 DAYS. 05/05/16 02:00 Nasopharyngeal Swab Respiratory Virus Panel - Final Imaging: CXR 05/12: bibasilar pneumonia CXR /: NG tube in place, tracheostomy tube, scoliosis, large heart, prominent knob and congestive changes with bibasilar infiltrates ASSESSMENT/PLAN: 51 yo F h/o HTN, multiple sclerosis with quadraplegia, chronic urinary retention and chronic respiratory insufficiency, seizure disorder and hypothyroidism admitted to the ICU for baclofen toxicity vs. sepsis 2/2 UTI. Patient is trached and on venti-mask during the day and on vent at night. She had multiple admissions for MDR infections such as UTI and decubitus ulcer in the sacral. Neuro: AMS 2/2 urosepsis in the setting of deteriorating MS - Mental status now at baseline - Cont. AED and zolof - Neuro check Q2H Pulm: Chronic respiratory insufficiency 2/2 ?MS - Trached on vent: see settings above - 2 doses of IV lasix today - Did not tolerate CPAP in AM, will try again in PM - Trach collar with passy tenzin valve (size 6) as tolerated - Maintain O2 Sat. > 88% - Nebulizers PRN - Daily CXR ID: Sepsis 2/2 UTI, Complicated vs Sacral decubitus ulcers; pneumonia - Indwelling perera catheter - H/O MDR infections: UTI, PNA, shingles, WBC 537 on UA - WBC went up today like 2/2 steroid but afrebile - Routine wound care for decub. ulcers - Completed antibiotics course Renal/: UTI in the setting of chronic urinary retention - Replete albumin 25gm - Fluid held PRN if MAP < 65% - Maintain perera for urinary retention Heme: Macrocytic Anemia - Baseline HGB @ 8.6-10 - Transfuse if HGB < 7 Cardiac: Hypotension - Stable off pressors - Maintain MAP > 65% Endo: Hypothyrodism and ?adrenal insufficiency - Normal TSH and free T4 - Cont. synthroid Derm: Lower extremity purpura 2/2 drug allergy vs. skin irritation - Rashes resolved - Monitor closely FEN - Tube feed with free water added - Hypernatremia improving - TwoCal with high concentration and water 60ml/hr added - Prophylaxis - DVT: lovenox 40mg QD - GI: on PPI Disposition - Need size 6 valve for trach collar - Transfer to 5th floor Code status - Full code Visit type - Emergency Visit Emergency Visit: No - New Patient This patient is new to me today: No - Critical Care Critical Care patient: Yes Total Critical Care Time (in minutes): 35 Critical Care Statement: The care of this patient involved high complexity decision making to prevent further life threatening deterioration of the patient 's condition and/or to evalute & treat vital organ system(s) failure or risk of failure.
--- NOTE | 2016-05-12 12:04 | PN ---
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 (short form) - Note 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: Renal Followup for Hyponatremia Pt seen and examined in the ICU awake on the Vent via trach pt unable to tolerate weaning to trach collar as per nurse given more lasix this am for volume removal good urine output Vital Signs Temperature 98.3 F 05/12/16 10:00 Pulse Rate 73 05/12/16 10:00 Respiratory Rate 14 05/12/16 10:00 Blood Pressure 156/83 05/12/16 10:00 O2 Sat by Pulse Oximetry (%) 92 L 05/12/16 09:25 Intake & Output 05/09/16 05/10/16 05/11/16 05/12/16 23:59 23:59 23:59 23:59 Intake Total 855 2880 3504 1026 Output Total 2400 1540 4450 600 Balance -1545 1340 -946 426 Weight 169 lb 7 oz 154 lb 15.759 oz 168 lb 10.458 oz 162 lb 6.4 oz Gen: Awake and alert, NAD HEENT: Trach in place, no JVD CVS: RRR, No M/R Lungs: Dec BS left lung Abd: Soft NT/ND Ext: no edema, clubbing or cyanosis : perera in place CBC, BMP 05/12/16 05:00 05/12/16 05:00 Current Medications Acetaminophen (Tylenol -) 650 mg PO Q6H PRN PRN Reason: FEVER OR PAIN Last Admin: 05/11/16 21:24 Dose: 650 mg Albumin Human (Albumin Human 25% -) 25 gm IVPB Q30M [facility] Stop: 05/12/16 13:01 Albuterol/Ipratropium (Duoneb -) 1 amp NEB QIDR [facility] Last Admin: 05/12/16 10:40 Dose: 1 amp Amino Acids (Prosource No Carb Liquid Pkt) 30 ml NGT DAILY [facility] Last Admin: 05/12/16 09:14 Dose: 30 ml Enoxaparin Sodium (Lovenox -) 40 mg SQ DAILY [facility] Last Admin: 05/12/16 09:14 Dose: 40 mg Furosemide (Lasix Injection -) 40 mg IVPUSH ONCE ONE Stop: 05/12/16 15:01 Hydrocortisone Sodium Succinate (Solu-Cortef -) 20 mg IVPB Q8H-IV [facility] Last Admin: 05/12/16 09:14 Dose: 20 mg Pantoprazole Sodium (Protonix 40mg Ivpb (Pre-Docked)) 100 mls @ 200 mls/hr IVPB BID [facility] Last Admin: 05/12/16 09:14 Dose: 200 mls/hr Lactulose (Cephulac (Oral Use)) 20 gm PO HS PRN PRN Reason: CONSTIPATION Levothyroxine Sodium (Synthroid -) 88 mcg PO DAILY@0700 [facility] Last Admin: 05/12/16 06:05 Dose: 88 mcg Mirtazapine (Remeron -) 7.5 mg PO HS [facility] Last Admin: 05/11/16 21:21 Dose: 7.5 mg Mupirocin (Bactroban 2% Ointment -) 1 applic TP BID [facility] Last Admin: 05/11/16 21:22 Dose: 1 applic Sodium Chloride (Normal Saline -) 720 ml IV Q20M PRN PRN Reason: MAP<65mm Hg OR SBP <90 A/P 51 year old woman with PMHx of Multiple Sclerosis, Chronic Resp Failure with Trach Collar, Hx of recurrent UTI, Periods of hyponatremia presented with AMS/ Lethargy and found to have Sepsis with Hypotension and Na of 126. #Hypernatremia Essentially stable from yesterday to today will decrease free water rate given concerns for volume overload and on-going diuresis Trend Na levels #Sepsis secondary to UTI ICU monitoring Vent support Keep MAP > 65, CVP 10-12 on Vent IVF as needed Pressers as needed #Resp Failure/Vent Dependence currently getting Albumin and IV lasix Goal is to keep pt net negative #MS supportive care Tyshawn Doe DO
[2016-05-12] MEDS: ALBUMIN HUMAN 25% 100 ML VIAL IVPB SCH ×4 (13:27→15:00)
[2016-05-12] MEDS ORDERED: FUROSEMIDE 40 MG/4 ML INJECTABLE VIAL IVPUSH ONE (15:00)
[2016-05-12] MEDS ORDERED: SODIUM CHLORIDE 0.9% 1000 ML INFUS.BAG IV PRN (18:07)
[2016-05-12] MEDS ORDERED: LACTULOSE 20 GM/30 ML UDC (FOR ORAL USE ONLY) PO PRN (18:07)
--- NOTE | 2016-05-12 18:19 | CONS ---
DATE OF CONSULTATION: 05/12/2016 PHYSICAL MEDICINE REHABILITATION CONSULTATION REFERRING PHYSICIAN: Anne Lopez M.D. HISTORY OF PRESENT ILLNESS: The patient is a 51-year-old woman with past medical history of multiple sclerosis with tetraplegia who was admitted on May 04 and subsequently diagnosed with sepsis, respiratory failure, undergoing intubation. Currently she is on a tracheostomy collar. On admission her WBCs were over 16, 000, hemoglobin 8.3, platelet count 78. She had low sodium 127, normal potassium 4.5 , elevated BUN 29, creatinine 1.0. Subsequent blood work shows even further elevation. Her current blood work as of today: WBC 12.7, hemoglobin 10.3, platelet count 51,000. Elevated BUN 31, creatinine 0.4. Her CO2 is elevated at 36. Last chest x-ray was done on May 12, 2016 . Patient was seen by Speech Pathology Abigail Magana and she is not currently a candidate for bedside swallowing evaluation. CURRENT MEDICATIONS: Include IV steroids, Lovenox for DVT prophylaxis. Patient is completely dependent. Review of past surgical and medical history as above. Multiple sclerosis which is advanced. Also, a history of hypothyroidism. SOCIAL HISTORY: Not known but patient again is completely dependent and probably a resident of a jail facility. REVIEW OF SYSTEMS: Difficult because patient has a difficulty time communicating, but she states she is not in any pain. She is not short of breath. No dizziness, lightheadedness. No fever or chills. No numbness, tingling, but severe weakness. PHYSICAL EXAMINATION: General: Patient seen lying in bed. She can mouth words. She is awake and cooperative, and in no acute distress. HEENT: Normocephalic, atraumatic. Extraocular muscles appear full. She has tracheostomy. Extremities: Without any pitting edema or calf tenderness. Neuromuscular: She is awake, alert, difficult to test orientation as she has difficulty speaking. She has full passive range of motion throughout her upper and lower extremities. Normal sensation to light touch and pin, depressed reflexes. Toes are equivocal, neither up going nor downgoing. OVERALL IMPRESSION: 1. Severe deficits mobility, activities of daily living, possibly irreversible. 2. Advanced multiple sclerosis with tetraplegia. 3. Respiratory failure, sepsis. 4. Anemia. 5. Thrombocytopenia. 6. Hypoalbuminemia. 7. Status post hyponatremia. 8. Elevated risk for deep vein thrombosis. 9. Elevated risk for decubitus ulceration with history of sacral decubitus ulceration. PLAN AND SUGGESTION: 1. Physical therapy. Will discuss with therapy department and as able can do some passive range of motion. 2. Chest PT. 3. Stated fall precaution. 4. Cardiac precaution. 5. Lovenox for DVT prophylaxis. 6. Wound care. 7. Avoid heel pressure, turn patient q.2 hours. 8. Long-term care versus 24-hour care at home depending on her current situation. Thank you for this referral. VARGAS BUENO M.D. JOEY/[id number] MTDD
[2016-05-12] MEDS: MIRTAZAPINE 15 MG TABLET (FP) PO SCH (22:09)
[2016-05-13] MEDS: HYDROCORTISONE SOD SUCCINATE 100 MG/2 ML VIAL IVPB SCH ×2 (01:22→22:36)
[2016-05-13] MEDS ORDERED: IBUPROFEN 800 MG/8 ML IJ IVPB ONE (01:35)
[2016-05-13 05:59] LABS: BASOPHIL 0.2 % (0-2.0); EOSINOPHIL 0.2 % (0-4.5); MCH 30.4 pg (25.7-33.7); MCHC 33.5 g/dl (32.0-36.0); MEAN CELL VOLUME 90.7 fl (80-96); MEAN PLT VOLUME 7.8 fl (7.5-11.1); NEUTROPHILS 87.5 % (42.8-82.8); PLATELET COUNT 339 K/MM3 (134-434); RDW 17.8 % (11.6-15.6)
[2016-05-13] MEDS: ALBUTEROL SO4 2.5/IPRATROPIUM 0.5 INH SOL 3 ML VIAL.NEB. NEB SCH ×3 (06:30→17:48)
[2016-05-13 07:05] LABS: ALBUMIN 2.7 g/dl (3.4-5.0); ANION GAP 7 (8-16); BILIRUBIN,TOTAL 0.7 mg/dL (0.2-1.0); CALCIUM 8.9 mg/dL (8.5-10.1); CO2 37 mmol/L (21-32); CREATININE 0.5 mg/dL (0.55-1.02); GLUCOSE,RANDOM 147 mg/dL (74-106); MAGNESIUM 2.1 mg/dL (1.8-2.4); PHOSPHOROUS 2.9 mg/dL (2.5-4.9); SGOT/AST 24 U/L (15-37); SGPT/ALT 61 U/L (12-78)
[2016-05-13 07:06] LABS: ALK PHOS 187 U/L (45-117); TOT PROT 6.4 g/dl (6.4-8.2)
[2016-05-13] MEDS: LEVOTHYROXINE NA 88 MCG TABLET (FP) PO SCH (07:06)
--- NOTE | 2016-05-13 07:35 | PN ---
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, Physician Chief Complaint: ID Previous course of Meropenem completed Had low grade fever but note that patient has fever constantly at home. She looks quite stable.. ICU TRAINING PROJECT MANAGER devon complete set of cultures. Now 100.7 Issue related to trach otherwise stable off antibiotic She is on hydrocortisone 20mg q8H so it possible fever actually higher. Got NSSAI - Current Medication List Current Medications: Active Medications Acetaminophen (Tylenol -) 650 mg PO Q6H PRN PRN Reason: FEVER OR PAIN Albuterol/Ipratropium (Duoneb -) 1 amp NEB QIDR [facility] Last Admin: 05/13/16 06:30 Dose: 1 amp Amino Acids (Prosource No Carb Liquid Pkt) 30 ml NGT DAILY [facility] Enoxaparin Sodium (Lovenox -) 40 mg SQ DAILY [facility] Hydrocortisone Sodium Succinate (Solu-Cortef -) 20 mg IVPB Q8H-IV [facility] Last Admin: 05/13/16 01:22 Dose: 20 mg Pantoprazole Sodium (Protonix 40mg Ivpb (Pre-Docked)) 100 mls @ 200 mls/hr IVPB BID [facility] Last Admin: 05/12/16 22:09 Dose: 200 mls/hr Lactulose (Cephulac (Oral Use)) 20 gm PO HS PRN PRN Reason: CONSTIPATION Levothyroxine Sodium (Synthroid -) 88 mcg PO DAILY@0700 [facility] Last Admin: 05/13/16 07:06 Dose: 88 mcg Mirtazapine (Remeron -) 7.5 mg PO HS [facility] Last Admin: 05/12/16 22:09 Dose: 7.5 mg Mupirocin (Bactroban 2% Ointment -) 1 applic TP BID [facility] Last Admin: 05/12/16 22:10 Dose: 1 applic Sodium Chloride (Normal Saline -) 720 ml IV Q20M PRN PRN Reason: MAP<65mm Hg OR SBP <90 - Objective Vital Signs: Vital Signs Temperature 100.1 F H 05/13/16 06:00 Pulse Rate 77 05/13/16 06:00 Respiratory Rate 16 05/13/16 06:44 Blood Pressure 135/68 05/13/16 06:00 O2 Sat by Pulse Oximetry (%) 97 05/12/16 22:00 Constitutional: Yes: Well Nourished, No Distress Eyes: Yes: WNL, Conjunctiva Clear HENT: Yes: WNL, Atraumatic Neck: Yes: WNL, Supple, Other (tracheostomy) Cardiovascular: Yes: Regular Rate and Rhythm, S1, S2. No: Murmur Respiratory: Yes: WNL, Regular, CTA Bilaterally, Rhonchi. No: Tachypnea, Wheezes Gastrointestinal: Yes: WNL, Normal Bowel Sounds, Soft, Other (pump). No: Splenomegaly, Tenderness, Tenderness, Rebound Extremities: Yes: Other (Contracted) Edema: No Labs: CBC, BMP 05/13/16 05:15 05/13/16 05:15 INR, PTT INR 1.22 (0.82-1.09) H 05/05/16 08:10 Problem List - Problems (1) Sepsis syndrome Code(s): UHE4902 - (2) Urinary tract infection Code(s): N39.0 - URINARY TRACT INFECTION, SITE NOT SPECIFIED (3) Multiple sclerosis Code(s): G35 - MULTIPLE SCLEROSIS (4) Respiratory failure Code(s): J96.90 - RESPIRATORY FAILURE, UNSP, UNSP W HYPOXIA OR HYPERCAPNIA (5) Multiple drug resistant organism (MDRO) culture positive Code(s): Z16.24 - RESISTANCE TO MULTIPLE ANTIBIOTICS Assessment/Plan Microbiology Laboratory Tests 05/13/16 05/13/16 05:15 05:15 WBC 10.0 Hgb 9.9 L Hct 29.6 L Plt Count 339 D BUN 31 H Creatinine 0.5 L D AST 24 D Alkaline Phosphatase 187 H Assessment Multiple sclerosis Urinary retention chronic perera Recent sepsis syndrome post Meropenem treatment Low grade fevers normal WBC appears stable though high risk for PNA and UTI History of resistant organism Plan Chest xray was reviewed no acute infiltrate Observe off antibiotics ESR CRP Sonogram reviewed ??would get HIDA scan to look for evidence cholecystitisMRCP Will discuss with Dr Jessica hernandez GI consult as to whether this is significant Cultures obtained pending 40 minutes spent critical care time Anam PATIÑO
[2016-05-13] MEDS ORDERED: FUROSEMIDE 40 MG/4 ML INJECTABLE VIAL IVPUSH ONE (09:04)
--- NOTE | 2016-05-13 09:04 | PN ---
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, Physician - Current Medication List Current Medications: Active Medications Acetaminophen (Tylenol -) 650 mg PO Q6H PRN PRN Reason: FEVER OR PAIN Albuterol/Ipratropium (Duoneb -) 1 amp NEB QIDR [facility] Last Admin: 05/13/16 06:30 Dose: 1 amp Amino Acids (Prosource No Carb Liquid Pkt) 30 ml NGT DAILY [facility] Enoxaparin Sodium (Lovenox -) 40 mg SQ DAILY [facility] Hydrocortisone Sodium Succinate (Solu-Cortef -) 20 mg IVPB Q8H-IV [facility] Last Admin: 05/13/16 01:22 Dose: 20 mg Pantoprazole Sodium (Protonix 40mg Ivpb (Pre-Docked)) 100 mls @ 200 mls/hr IVPB BID [facility] Last Admin: 05/12/16 22:09 Dose: 200 mls/hr Lactulose (Cephulac (Oral Use)) 20 gm PO HS PRN PRN Reason: CONSTIPATION Levothyroxine Sodium (Synthroid -) 88 mcg PO DAILY@0700 [facility] Last Admin: 05/13/16 07:06 Dose: 88 mcg Mirtazapine (Remeron -) 7.5 mg PO HS [facility] Last Admin: 05/12/16 22:09 Dose: 7.5 mg Mupirocin (Bactroban 2% Ointment -) 1 applic TP BID [facility] Last Admin: 05/12/16 22:10 Dose: 1 applic Sodium Chloride (Normal Saline -) 720 ml IV Q20M PRN PRN Reason: MAP<65mm Hg OR SBP <90 - Objective Vital Signs: Vital Signs Temperature 100.1 F H 05/13/16 06:00 Pulse Rate 77 05/13/16 06:00 Respiratory Rate 16 05/13/16 06:44 Blood Pressure 135/68 05/13/16 06:00 O2 Sat by Pulse Oximetry (%) 97 05/12/16 22:00 Cardiovascular: Yes: Regular Rate and Rhythm Respiratory: Yes: Diminished, Mechanically Ventilated Gastrointestinal: Yes: Normal Bowel Sounds, Soft Labs: CBC, BMP 05/13/16 05:15 05/13/16 05:15 INR, PTT INR 1.22 (0.82-1.09) H 05/05/16 08:10 Problem List - Problems (1) Sepsis Assessment/Plan: OFF IV ABX RPT CULTURES DONE DUE TO LOW GRADE FEVER ID CONSULT NOTED Code(s): A41.9 - SEPSIS, UNSPECIFIED ORGANISM Qualifiers: Qualified Code(s): A41.9 - Sepsis, unspecified organism (2) Altered mental status Assessment/Plan: IMPROVED AT BASELINE Code(s): R41.82 - ALTERED MENTAL STATUS, UNSPECIFIED Qualifiers: Qualified Code(s): R40.4 - Transient alteration of awareness (3) Hyponatremia Assessment/Plan: IMPROVED MONITOR Code(s): E87.1 - HYPO-OSMOLALITY AND HYPONATREMIA (4) Multiple sclerosis Assessment/Plan: NEURO ON CASE Code(s): G35 - MULTIPLE SCLEROSIS (5) Adrenal insufficiency Assessment/Plan: IV SOLUCORTEF--TAPER ENDO CONSULT Code(s): E27.40 - UNSPECIFIED ADRENOCORTICAL INSUFFICIENCY (6) Anemia Assessment/Plan: REPEAT PENDING S/P TRANSFUSION -HGB 10 Code(s): D64.9 - ANEMIA, UNSPECIFIED Qualifiers: Qualified Code(s): D63.8 - Anemia in other chronic diseases classified elsewhere (7) Pneumonia Assessment/Plan: OFF IV ABX CXR NOTED-WORSENING--MAYBE COMPONENT OFFLUID LASIX RPT CXR Code(s): J18.9 - PNEUMONIA, UNSPECIFIED ORGANISM (8) Presence of intrathecal baclofen pump Assessment/Plan: PER NEURO Code(s): Z98.89 - OTHER SPECIFIED POSTPROCEDURAL STATES * DO NOT USE *
[2016-05-13] MEDS: MUPIROCIN 2% TOPICAL OINTMENT 22 GM TUBE TP SCH ×2 (11:11→22:35)
[2016-05-13] MEDS: ENOXAPARIN NA (PORCINE) 40 MG/0.4 ML DISP.SYRIN SQ SCH (11:11)
[2016-05-13] MEDS: PANTOPRAZOLE SODIUM 100 ML IVPB SCH ×2 (11:12→22:36)
[2016-05-13] MEDS: AMINO ACIDS/PROTEIN HYDROLYS 30 ML LIQUID.PKT NGT SCH (11:13)
--- NOTE | 2016-05-13 11:29 | PN ---
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 (short form) - Note 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: Renal Followup for Hyponatremia Pt seen and examined in the ICU on trach collar but O2 sat in the high 80s wants to eat denies any pain no fever or chills getting NGT feeds Vital Signs Temperature 100.1 F H 05/13/16 06:00 Pulse Rate 88 05/13/16 10:05 Respiratory Rate 20 05/13/16 10:05 Blood Pressure 135/68 05/13/16 06:00 O2 Sat by Pulse Oximetry (%) 96 05/13/16 10:05 Intake & Output 05/10/16 05/11/16 05/12/16 05/13/16 23:59 23:59 23:59 23:59 Intake Total 2880 3504 1766 796 Output Total 1540 4450 8200 600 Balance 4399 -954 -6703 196 Weight 154 lb 15.759 oz 168 lb 10.458 oz 162 lb 6.4 oz 158 lb Gen: Awake and alert, NAD HEENT: Trach in place, no JVD CVS: RRR, No M/R Lungs: Dec BS left lung Abd: Soft NT/ND Ext: no edema, clubbing or cyanosis : perera in place CBC, BMP 05/13/16 05:15 05/13/16 05:15 Current Medications Acetaminophen (Tylenol -) 650 mg PO Q6H PRN PRN Reason: FEVER OR PAIN Albuterol/Ipratropium (Duoneb -) 1 amp NEB QIDR [facility] Last Admin: 05/13/16 11:14 Dose: 1 amp Amino Acids (Prosource No Carb Liquid Pkt) 30 ml NGT DAILY [facility] Last Admin: 05/13/16 11:13 Dose: 30 ml Enoxaparin Sodium (Lovenox -) 40 mg SQ DAILY [facility] Last Admin: 05/13/16 11:11 Dose: 40 mg Hydrocortisone Sodium Succinate (Solu-Cortef -) 20 mg IVPB BID [facility] Pantoprazole Sodium (Protonix 40mg Ivpb (Pre-Docked)) 100 mls @ 200 mls/hr IVPB BID [facility] Last Admin: 05/13/16 11:12 Dose: 200 mls/hr Lactulose (Cephulac (Oral Use)) 20 gm PO HS PRN PRN Reason: CONSTIPATION Levothyroxine Sodium (Synthroid -) 88 mcg PO DAILY@0700 [facility] Last Admin: 05/13/16 07:06 Dose: 88 mcg Mirtazapine (Remeron -) 7.5 mg PO HS [facility] Last Admin: 05/12/16 22:09 Dose: 7.5 mg Mupirocin (Bactroban 2% Ointment -) 1 applic TP BID [facility] Last Admin: 05/13/16 11:11 Dose: 1 applic Sodium Chloride (Normal Saline -) 720 ml IV Q20M PRN PRN Reason: MAP<65mm Hg OR SBP <90 A/P 51 year old woman with PMHx of Multiple Sclerosis, Chronic Resp Failure with Trach Collar, Hx of recurrent UTI, Periods of hyponatremia presented with AMS/ Lethargy and found to have Sepsis with Hypotension and Na of 126. #Hypernatremia Serum na now stable continue tube feeds and free water #Sepsis secondary to UTI completed course of Abx for UTI continues to have fevers ID following trending CRP GI eval for billiary pathology BP stable on tapering doses of hydrocortisone #Resp Failure/Vent Dependence CXR continues to show congestion IV lasix as needed as per ICU Vent support as needed #MS supportive care Tyshawn Doe DO
--- NOTE | 2016-05-13 12:20 | PN ---
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, SURGERY TECHNICIAN - Note 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: Pt more alert and stronger. On trach collar with o2 sat 90-92. Suctioned by nursing with significant secretions, some blood tinged. PMV assessed with fair voicing, at times quite strong and euphonic, varied with weaker, more hypophonic voice. Swallowing assessed- Head support weak, needing frequent adjustment to facilitate head to neutral or flexed position. Swallow is delayed, with fair swallow strength. Reduced VOM and excursion. Pt encouraged to "Swallow HARD, twice" per 1/2 tsp and sip of nectar thick. No food suctioned from trach. Silent aspiration can not be r/o at bedside. REC: Suction before feeding. Mouth care. PMV in place during PO intake. Trial of puree, ideally "colored foods", eg orange and green vege, chocolate pudding etc,to monitor for s/s of aspiration at trach site, and nectar thick liquid. Magic cup. Ensure compact. Facilitate head to neutral or flexed position. HOB fully elevated. Swallow HARD, twice per 1/2 tsp and single sip of nectar thick. Maintain NGT in place for now for sufficient nutritional intake and medication, as needed. Monitor PO tolerance MBS to r/o silent aspiration and advance diet when stable.
--- NOTE | 2016-05-13 12:28 | PN ---
Teaching Attending Note Name of Resident: Mickey Mandel ATTENDING PHYSICIAN STATEMENT I saw and evaluated the patient. I reviewed the resident's note and discussed the case with the resident. I agree with the resident's findings and plan as documented. SUBJECTIVE: Pt seen and examined in the ICU. Feels better today, diuresed well with lasix/ albumin. Low grade temps overnight. Tolerating CPAP/PS trials. OBJECTIVE: Last Vital Signs Temp Pulse Resp BP Pulse Ox 100.1 F H 88 20 135/68 96 05/13/16 06:00 05/13/16 10:05 05/13/16 10:05 05/13/16 06:00 05/13/16 10:05 Intake & Output 05/10/16 05/11/16 05/12/16 05/13/16 23:59 23:59 23:59 23:59 Intake Total 2880 3504 1766 796 Output Total 1540 4450 8200 600 Balance 6070 -167 -6281 196 Weight 154 lb 15.759 oz 168 lb 10.458 oz 162 lb 6.4 oz 158 lb Gen: less tachypneic, more alert, awake Heart: RRR Lung: decreased breath sounds at the bases Abd: soft, nontender Ext: no edema CBC, BMP 05/13/16 05:15 05/13/16 05:15 Active Medications Acetaminophen (Tylenol -) 650 mg PO Q6H PRN PRN Reason: FEVER OR PAIN Albuterol/Ipratropium (Duoneb -) 1 amp NEB QIDR [facility] Last Admin: 05/13/16 11:14 Dose: 1 amp Amino Acids (Prosource No Carb Liquid Pkt) 30 ml NGT DAILY [facility] Last Admin: 05/13/16 11:13 Dose: 30 ml Enoxaparin Sodium (Lovenox -) 40 mg SQ DAILY [facility] Last Admin: 05/13/16 11:11 Dose: 40 mg Hydrocortisone Sodium Succinate (Solu-Cortef -) 20 mg IVPB BID [facility] Pantoprazole Sodium (Protonix 40mg Ivpb (Pre-Docked)) 100 mls @ 200 mls/hr IVPB BID [facility] Last Admin: 05/13/16 11:12 Dose: 200 mls/hr Lactulose (Cephulac (Oral Use)) 20 gm PO HS PRN PRN Reason: CONSTIPATION Levothyroxine Sodium (Synthroid -) 88 mcg PO DAILY@0700 [facility] Last Admin: 05/13/16 07:06 Dose: 88 mcg Mirtazapine (Remeron -) 7.5 mg PO HS [facility] Last Admin: 05/12/16 22:09 Dose: 7.5 mg Mupirocin (Bactroban 2% Ointment -) 1 applic TP BID [facility] Last Admin: 05/13/16 11:11 Dose: 1 applic Sodium Chloride (Normal Saline -) 720 ml IV Q20M PRN PRN Reason: MAP<65mm Hg OR SBP <90 ASSESSMENT AND PLAN: UTI Sacral Decubitus Ulcer r/o Pneumonia Septic Shock resolving Altered Mental Status from above improving Multiple Sclerosis Hyponatremia now Hypernatremic Hypothyroidism Adrenal Insufficiency - monitoring off antibiotics - f/u pending cultures - lasix ordered today - attempt trach collar - PO as tolerated once on trach collar - inhaled bronchodilators - O2 to keep SpO2 >90% - ENT to evaluate trach as nursing reports intermittent leaks - DVT/GI prophylaxis - can transfer to vent floor
--- NOTE | 2016-05-13 14:18 | PN ---
Physical Exam: SUBJECTIVE: Patient seen and examined at bedside in the ICU. She is trached and on vent at baseline mental status. Per nurse, low grade fever overnight and complete cultures were drawn. OBJECTIVE: Trached on mechanical ventilation Vent settings: AC, RR 14, TV 450, FiO2 40, PEEP 5 Off pressor and sedation Vital Signs Period Temp Pulse Resp BP Sys/Morillo Pulse Ox Last 24 Hr 98.1 F-100.7 F 67-88 14-25 114-158/38-69 88-97 GENERAL: The patient is awake, alert, fully oriented EYES: pupils equal and reactive to light ENT: NG tube in place LUNGS: lound b/l rhonchi HEART: RRR ABDOMEN: Soft, nontender, nondistended, normoactive bowel sounds EXTREMITIES: new skin lesions on LL extremity, central erythema, non-indurated, no drainage, no edema : perera in place, light yellow urine CBCD WBC 10.0 K/mm3 (4.0-10.0) 05/13/16 05:15 RBC 3.27 M/mm3 (3.60-5.2) L 05/13/16 05:15 Hgb 9.9 GM/dL (10.7-15.3) L 05/13/16 05:15 Hct 29.6 % (32.4-45.2) L 05/13/16 05:15 MCV 90.7 fl (80-96) 05/13/16 05:15 MCHC 33.5 g/dl (32.0-36.0) 05/13/16 05:15 RDW 17.8 % (11.6-15.6) H 05/13/16 05:15 Plt Count 339 K/MM3 (134-434) D 05/13/16 05:15 MPV 7.8 fl (7.5-11.1) 05/13/16 05:15 CMP Sodium 141 mmol/L (136-145) 05/13/16 05:15 Potassium 4.5 mmol/L (3.5-5.1) 05/13/16 05:15 Chloride 97 mmol/L (98-107) L 05/13/16 05:15 Carbon Dioxide 37 mmol/L (21-32) H 05/13/16 05:15 Anion Gap 7 (8-16) L 05/13/16 05:15 BUN 31 mg/dL (7-18) H 05/13/16 05:15 Creatinine 0.5 mg/dL (0.55-1.02) L D 05/13/16 05:15 Creat Clearance w eGFR > 60 (>60) 05/13/16 05:15 Calcium 8.9 mg/dL (8.5-10.1) 05/13/16 05:15 Total Bilirubin 0.7 mg/dL (0.2-1.0) D 05/13/16 05:15 AST 24 U/L (15-37) D 05/13/16 05:15 ALT 61 U/L (12-78) D 05/13/16 05:15 Alkaline Phosphatase 187 U/L (45-117) H 05/13/16 05:15 Total Protein 6.4 g/dl (6.4-8.2) 05/13/16 05:15 Albumin 2.7 g/dl (3.4-5.0) L D 05/13/16 05:15 Intake & Output 05/10/16 05/11/16 05/12/16 05/13/16 23:59 23:59 23:59 23:59 Intake Total 2880 3504 1766 796 Output Total 1540 4450 8200 600 Balance 7044 -277 -1364 196 Weight 70.3 kg 76.5 kg 73.663 kg 71.668 kg Active Medications Generic Name Dose Route Start Last Admin Trade Name Freq PRN Reason Stop Dose Admin Acetaminophen 650 mg 05/12/16 18:07 Tylenol - PO Q6H PRN FEVER OR PAIN Albuterol/Ipratropium 1 amp 05/13/16 00:00 05/13/16 11:14 Duoneb - NEB 1 amp QIDR CATHERINE Administration Amino Acids 30 ml 05/13/16 10:00 05/13/16 11:13 Prosource No Carb Liquid Pkt NGT 30 ml DAILY CATHERINE Administration Enoxaparin Sodium 40 mg 05/13/16 10:00 05/13/16 11:11 Lovenox - SQ 40 mg DAILY CATHERINE Administration Hydrocortisone Sodium Succinate 20 mg 05/13/16 10:00 Solu-Cortef - IVPB BID CATHERINE Pantoprazole Sodium 100 mls @ 200 mls/hr 05/12/16 22:00 05/13/16 11:12 Protonix 40mg Ivpb (Pre-Docked) IVPB 200 mls/hr BID CATHERINE Administration Lactulose 20 gm 05/12/16 18:07 Cephulac (Oral Use) PO HS PRN CONSTIPATION Levothyroxine Sodium 88 mcg 05/13/16 07:00 05/13/16 07:06 Synthroid - PO 88 mcg DAILY@0700 CATHERINE Administration Mirtazapine 7.5 mg 05/12/16 22:00 05/12/16 22:09 Remeron - PO 7.5 mg HS CATHERINE Administration Mupirocin 1 applic 05/12/16 22:00 05/13/16 11:11 Bactroban 2% Ointment - TP 1 applic BID CATHERINE Administration Sodium Chloride 720 ml 05/12/16 18:07 Normal Saline - IV Q20M PRN MAP<65mm Hg OR SBP <90 Microbiology 05/09/16 11:23 Blood - Peripheral Venous Blood Culture - Preliminary NO GROWTH OBTAINED AFTER 96 HOURS, INCUBATION TO CONTINUE FOR 1 DAYS. 05/09/16 11:35 Blood - Peripheral Venous Blood Culture - Preliminary NO GROWTH OBTAINED AFTER 96 HOURS, INCUBATION TO CONTINUE FOR 1 DAYS. Imaging: CXR 05/13: slight improvement CXR 05/12: bibasilar pneumonia CXR 05/09: NG tube in place, tracheostomy tube, scoliosis, large heart, prominent knob and congestive changes with bibasilar infiltrates ASSESSMENT/PLAN: 51 yo F h/o HTN, multiple sclerosis with quadraplegia, chronic urinary retention and chronic respiratory insufficiency, seizure disorder and hypothyroidism admitted to the ICU for baclofen toxicity vs. sepsis 2/2 UTI. Patient is trached and on venti-mask during the day and on vent at night. She had multiple admissions for MDR infections such as UTI and decubitus ulcer in the sacral. Neuro: AMS 2/2 urosepsis in the setting of deteriorating MS - Mental status now at baseline - Cont. AED and zolof - Neuro check Q2H Pulm: Chronic respiratory insufficiency 2/2 ?MS - Trached on vent: see settings above - 1 dose of IV lasix in AM - Tolerated trach collar till 2PM, back on A/C - ENT consult to re-assess trach valve size - Maintain O2 Sat. > 88% - Nebulizers PRN - Daily CXR ID: Sepsis 2/2 UTI, Complicated vs Sacral decubitus ulcers; pneumonia - Indwelling perera catheter - H/O MDR infections: UTI, PNA, shingles, WBC 537 on UA - WBC normalized today with overnight low grade fever - Routine wound care for decub. ulcers - Completed antibiotics course - F/U cultures drawn last night Renal/: UTI in the setting of chronic urinary retention - S/p albumin 25gm - Fluid held PRN if MAP < 65% - Maintain perera for urinary retention Heme: Macrocytic Anemia - Baseline HGB @ 8.6-10 - Transfuse if HGB < 7 Cardiac: Hypotension - Stable off pressors - Maintain MAP > 65% Endo: Hypothyrodism and ?adrenal insufficiency - Normal TSH and free T4 - Cont. synthroid Derm: Lower extremity purpura 2/2 drug allergy vs. skin irritation - Rashes resolved - New lesions noted, local skin care and monitor closely FEN - Tube feed with free water added - Hypernatremia resolved - Pureed diet - Prophylaxis - DVT: lovenox 40mg QD - GI: on PPI Disposition - Await ENT consult to solve leaky trach valve - Transfer to 5th floor Code status - Full code Visit type - Emergency Visit Emergency Visit: No - New Patient This patient is new to me today: No - Critical Care Critical Care patient: Yes Total Critical Care Time (in minutes): 35 Critical Care Statement: The care of this patient involved high complexity decision making to prevent further life threatening deterioration of the patient 's condition and/or to evalute & treat vital organ system(s) failure or risk of failure.
--- NOTE | 2016-05-13 19:21 | PN ---
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 (short form) - Note 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: NEUROLOGY F/U: Events reviewed. Patient examined with mother at the bedside. Trache leaking air. Awaiting Dr. Cormier to repair. Pt tolerating breathing off ventilator 2 hours at a time. Still c/o increased secretions. Afebrile. Awake, alert. Normal MS. Blind OS. Decreased vision OD. No limb movements except flexor spasms to touch. IMP: Advanced MS with tetraplegia due to cervical plaque. Resolving toxic-metabolic encephalopathy due to UTI. Respiratory capacity improving. SUGGEST: Await trache revision. Continue tegretol, tylenol. Continue nutritional support and weaning. Thank you very much, Gregor Conroy MD
--- NOTE | 2016-05-13 19:57 | CONSULT ---
Consult Consult Specialty:: ENT Reason for Consultation:: trach problem - History of Present Illness Chief Complaint: tracheotomy tube leaking History of Present Illness: 51 yo F with multiple sclerosis with quadriplegia, on ventilator x > 2 yrs, had tracheotomy placed by Dr. Landon per mother, it has been some time since the tube has been changed pt presently admitted with pneumonia recently there has been a leak and the tracheotomy tube is not functioning correctly. There has also been difficulty passing the inner cannula in fully. - History Source History Provided By: Patient, Family Member, Medical Record - Past Medical History BUSINESS MANAGEMENT INTERN: Yes: Multiple Sclerosis (quadraplegia), Other (legally blind, trigeminal neuralgia -> baclofen pump) Cardio/Vascular: Yes: HTN, Hyperlipdemia Pulmonary: Yes: Pneumonia (recurrent aspiration -> last one in 05/21 (RLL)), Previously Intubated, Other (hypercapneic respiratory failure s/p trach) Gastrointestinal: Yes: Constipation (chronic) Renal/: Yes: Neurogenic Bladder ( neurogenic bladder, chronic perera catheter) ...LMP: 06/07/12 Infectious Disease: Yes: Other (pneumonia, uti treated by urologist) Musculoskeletal: Yes: Other Dermatology: Yes: Other (chronic decubitus followed by wound care) Additional Medical History: trigeminal neuralgia, baclofen pump. chronic decubitus followed by wound care. neurogenic bladder, chronic perera catheter - Alcohol/Substance Use Hx Alcohol Use: No History of Substance Use: reports: None - Smoking History Smoking history: Never smoked Have you smoked in the past 12 months: No Aproximately how many cigarettes per day: 0 - Social History Usual Living Arrangement: With Parent ADL: Support Services History of Recent Travel: No Home Medications - Allergies Allergies/Adverse Reactions: Allergies Allergy/AdvReac Type Severity Reaction Status Date / Time chloral hydrate Allergy Intermediate Rash Verified 05/04/16 12:01 [Chloral Hydrate] azathioprine [From Imuran] Allergy Rash Verified 05/04/16 12:01 azathioprine sodium Allergy Rash Verified 05/04/16 12:01 [From Imuran] adhesive tape AdvReac Severe sensitivity Verified 05/04/16 12:01 to glue adhesive AdvReac Unknown Verified 05/04/16 12:01 - Home Medications Home Medications: Ambulatory Orders Carbamazepine [Tegretol -] 100 mg PO TID tab.chew 08/27/14 Albuterol 0.083% Nebulizer Rocio [Ventolin 0.083% Nebulizer Soln -] 1 neb NEB Q4H PRN #0 amp 10/26/14 Clonazepam [Klonopin] 0.5 mg PO DAILY 05/08/15 Hydralazine HCl [Apresoline -] 25 mg PO TID tablet 12/08/15 Amlodipine Besylate [Norvasc -] 10 mg PO HS 02/06/16 Baclofen 5 mg PO DAILY 02/06/16 Mirtazapine 7.5 mg PO DAILY 02/06/16 Pantoprazole Sodium [Protonix] 40 mg PO DAILY 02/06/16 Potassium Chloride 20 meq PO DAILY 02/06/16 Sertraline HCl [Zoloft -] 25 mg PO TID 02/06/16 Levothyroxine [Synthroid -] 88 mcg PO DAILY@0700 #30 tablet 02/14/16 Valacyclovir HCl [Valtrex -] 1,000 mg PO TID #20 tablet 04/03/16 Family Disease History - Family Disease History Family Disease History: Other: Mother (alive and well) Physical Exam Vital Signs: Vital Signs Temperature 99.9 F H 05/13/16 18:00 Pulse Rate 76 05/13/16 18:00 Respiratory Rate 20 05/13/16 18:00 Blood Pressure 113/71 05/13/16 18:00 O2 Sat by Pulse Oximetry (%) 96 05/13/16 10:05 Constitutional: Yes: No Distress, Mild Distress Eyes: Yes: WNL Neck: Yes: Other (#6 Portex tracheotomy tube in place, audible air leak) Respiratory: Yes: Mechanically Ventilated Neurological: Yes: Alert, Weakness Labs: CBC, BMP 05/13/16 05:15 05/13/16 05:15 Imaging - Results Chest X-ray: Report Reviewed, Image Reviewed Assessment/Plan pt has tracheotomy tube malfunction, requires ventilator tracheobronchoscopy performed via trach tube. tube lumen patent, no obstruction proximal trachea normal, no stenosis, no granuloma or bleeding distal trachea unremarkable danie +sl thick secretions from right and left mainstem bronchi. Tracheotomy tube changed new #6 Portex tube placed atraumatically stoma small but patent and healed, peristomal skin WNL secured with velcro strap, inner cannula placed cuff inflated, ventilator attached good exhaled volume, no further audible air leak discussed with pt and her mother.
[2016-05-13] MEDS: ACETAMINOPHEN 325 MG TABLET (FP) PO PRN (20:17)
[2016-05-13] MEDS: MIRTAZAPINE 15 MG TABLET (FP) PO SCH (22:35)
[2016-05-13] MEDS ORDERED: ALBUTEROL SO4 0.083% IH SOL 2.5 MG/3 ML VIAL.NEB. NEB ONE (23:54)
[2016-05-14] MEDS ORDERED: ALBUTEROL SO4 0.083% IH SOL 2.5 MG/3 ML VIAL.NEB. NEB ONE
[2016-05-14] MEDS ORDERED: DOPAMINE 400 MG/D5W - 250 ML IVPB ONE (00:02)
[2016-05-14] MEDS: ALBUTEROL SO4 2.5/IPRATROPIUM 0.5 INH SOL 3 ML VIAL.NEB. NEB SCH ×5 (00:05→23:01)
[2016-05-14] MEDS: DOPAMINE 400 MG/D5W - 250 ML IVPB SCH ×2 (00:20→11:06)
--- NOTE | 2016-05-14 00:24 | PN ---
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 (short form) - Note 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: 0000 -- Called to bedside by RN for acute desaturation. Gen: Pt awake, blue/batista coloration, lethargic, change from yesterday. Pulm: Fine ronchi throughout, RR mid 20s Cardio: s1,s2, sinus on tele 90s Ab: +bsx4 Ex: No edema appreciated, +2 bilateral pedal pulses : Raza with yellow output 79/49, 100.8F rectal, 82% on fio2 50 FiO2 increased to 100%, stat albuterol with moderate improvement to sat 90%. Suctioned with copious clear/yellow output, thin with occasional blood streak ( pt with trach change earlier today). Low suspicion for plug. Concern for aspiration. -Feed held -Stat chest xray -Ambu-bag at bedside -Additional albuterol -Tylenol for low grade fever -Low dose dopamine for hypotension -Stat labs -d/c midline catheter as concern for infectious source ~0145 -- Pt with increased dopamine requirements, pt on 10mcg with MAP of 60. WBC 10-->18, elevated CRP. Unable to reach mother, listed next of kin on chart. Per discussion with patient, she wishes her sister "Deysi" to make medical decisions for her. Deysi on speakerphone with Nurse Damaris Mcmanus as witness. Attempt to place RIJ TLC, pt extremely volume depleted on ultrasound. Additional IVF bolus ordered with reduced pressor requirements. In light of numerous infection sources (sacral wounds, urine, pulm) and tenuous status, will order one time doses of Vanc/Taylor. Will continue to closely monitor.
[2016-05-14] MEDS ORDERED: SODIUM CHLORIDE 250 ML IV STA (00:33)
[2016-05-14] MEDS ORDERED: ALBUTEROL SO4 0.083% IH SOL 2.5 MG/3 ML VIAL.NEB. NEB PRN (00:36)
[2016-05-14] MEDS: SODIUM CHLORIDE 1,000 ML IV SCH ×2 (00:45→14:49)
[2016-05-14] MEDS ORDERED: VANCOMYCIN 1,000 MG in DEXTROSE 5%-WATER - 250 ML IVPB ONE (01:17)
[2016-05-14 01:20] LABS: BASOPHIL 0.3 % (0-2.0); EOSINOPHIL 0.7 % (0-4.5); MCH 30.3 pg (25.7-33.7); MEAN CELL VOLUME 91.7 fl (80-96); MEAN PLT VOLUME 8.2 fl (7.5-11.1); NEUTROPHILS 85.5 % (42.8-82.8); PLATELET COUNT 511 K/MM3 (134-434); RDW 17.4 % (11.6-15.6)
[2016-05-14 01:29] LABS: INR 1.19 (0.82-1.09); PROTHROMBIN TIME (PATIENT) 13.1 SEC (9.98-11.88)
[2016-05-14 01:32] LABS: ACTIVATED PTT 36.4 SECONDS (26.9-34.4)
[2016-05-14 01:44] LABS: ALBUMIN 3.1 g/dl (3.4-5.0); ALK PHOS 210 U/L (45-117); ANION GAP 12 (8-16); BILIRUBIN,TOTAL 1.1 mg/dL (0.2-1.0); CALCIUM 9.7 mg/dL (8.5-10.1); CO2 35 mmol/L (21-32); CREATININE 0.7 mg/dL (0.55-1.02); GLUCOSE,RANDOM 102 mg/dL (74-106); MAGNESIUM 2.2 mg/dL (1.8-2.4); PHOSPHOROUS 3.3 mg/dL (2.5-4.9); SGOT/AST 20 U/L (15-37); SGPT/ALT 54 U/L (12-78); TOT PROT 7.6 g/dl (6.4-8.2)
[2016-05-14] MEDS ORDERED: SODIUM CHLORIDE 500 ML IV STA ×2 (02:06→02:15)
[2016-05-14] MEDS ORDERED: VANCOMYCIN 1 GRAM (PRE-DOCKED) 1,000 MG/250 ML BAG IVPB ONE (02:15)
[2016-05-14] MEDS ORDERED: SODIUM CHLORIDE 1,000 ML IV STA (03:15)
[2016-05-14] MEDS ORDERED: MEROPENEM 500 MG VIAL (RESTRICTED TO ID) IVPB ONE (03:45)
[2016-05-14] MEDS ORDERED: MEROPENEM 500 MG in SODIUM CHLORIDE 100 ML IVPB ONE (04:15)
[2016-05-14 06:22] LABS: BASOPHIL 0.2 % (0-2.0); EOSINOPHIL 0.2 % (0-4.5); MCH 30.7 pg (25.7-33.7); MCHC 33.5 g/dl (32.0-36.0); MEAN CELL VOLUME 91.5 fl (80-96); MEAN PLT VOLUME 7.8 fl (7.5-11.1); NEUTROPHILS 83.3 % (42.8-82.8); PLATELET COUNT 473 K/MM3 (134-434); RDW 17.5 % (11.6-15.6); WHITE BLOOD COUNT 14.7 K/mm3 (4.0-10.0)
[2016-05-14] MEDS ORDERED: PT OWN MED DRAWER 7, Y5N ONE (06:24)
[2016-05-14 06:51] LABS: ALBUMIN 2.6 g/dl (3.4-5.0); ALK PHOS 188 U/L (45-117); ANION GAP 10 (8-16); BILIRUBIN,TOTAL 0.8 mg/dL (0.2-1.0); CALCIUM 8.6 mg/dL (8.5-10.1); CO2 31 mmol/L (21-32); CREATININE 0.6 mg/dL (0.55-1.02); GLUCOSE,RANDOM 126 mg/dL (74-106); PHOSPHOROUS 2.7 mg/dL (2.5-4.9); SGOT/AST 22 U/L (15-37); SGPT/ALT 44 U/L (12-78); TOT PROT 6.4 g/dl (6.4-8.2)
[2016-05-14] MEDS ORDERED: LEVOTHYROXINE SODIUM 100 MCG VIAL IVPUSH ONE (07:00)
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
[2016-05-14] MEDS: PANTOPRAZOLE SODIUM 100 ML IVPB SCH ×2 (09:34→21:11)
[2016-05-14] MEDS: AMINO ACIDS/PROTEIN HYDROLYS 30 ML LIQUID.PKT NGT SCH (09:35)
[2016-05-14] MEDS: ENOXAPARIN NA (PORCINE) 40 MG/0.4 ML DISP.SYRIN SQ SCH (09:35)
[2016-05-14] MEDS: HYDROCORTISONE SOD SUCCINATE 100 MG/2 ML VIAL IVPB SCH ×3 (09:36→22:00)
[2016-05-14] MEDS: PIPERACILLIN/TAZOB 4.5 GM 100 ML IVPB SCH ×2 (09:37→17:38)
[2016-05-14] MEDS: MUPIROCIN 2% TOPICAL OINTMENT 22 GM TUBE TP SCH ×2 (09:37→21:15)
[2016-05-14 09:41] LABS: URINE APPEARANCE CLEAR; URINE BILIRUBIN NEGATIVE (NEGATIVE); URINE COLOR YELLOW; URINE GLUCOSE (UA) 1+ (NEGATIVE); URINE KETONE NEGATIVE (NEGATIVE); URINE LEUK ESTERASE NEGATIVE (NEGATIVE); URINE NITRITE NEGATIVE (NEGATIVE); URINE UROBILINOGEN 2.0 E.U/dl E.U./dl (0.2-1.0)
--- NOTE | 2016-05-14 10:19 | PN ---
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 (short form) - Note 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: Renal Followup for Hyponatremia Pt seen and examined in the ICU awake and alert on the Vent pt was hypotensive overnight, started on IVF and Dopamine + Fever Vital Signs Temperature 100.5 F H 05/14/16 08:00 Pulse Rate 74 05/14/16 08:00 Respiratory Rate 16 05/14/16 08:00 Blood Pressure 114/54 05/14/16 08:00 O2 Sat by Pulse Oximetry (%) 92 L 05/14/16 07:59 Intake & Output 05/11/16 05/12/16 05/13/16 05/14/16 23:59 23:59 23:59 23:59 Intake Total 3504 1766 1406 3215 Output Total 4450 8200 3000 500 Balance -522 -1360 -2662 2715 Weight 168 lb 10.458 oz 162 lb 6.4 oz 158 lb 153 lb 14.4 oz Gen: Awake and alert, NAD, NGT in place HEENT: Trach in place, on Vent CVS: RRR, No M/R Lungs: Dec BS Abd: Soft NT/ND Ext: no edema, clubbing or cyanosis : perera in place CBC, BMP 05/14/16 05:00 05/14/16 05:00 Laboratory Tests 05/14/16 05:00 Calcium 8.6 Phosphorus 2.7 Magnesium 2.0 Albumin 2.6 L Current Medications Acetaminophen (Tylenol -) 650 mg PO Q6H PRN PRN Reason: FEVER OR PAIN Last Admin: 05/13/16 20:17 Dose: 650 mg Albuterol Sulfate (Ventolin 0.083% Nebulizer Soln -) 1 amp NEB Q4H PRN PRN Reason: SHORT OF BREATH/WHEEZING Albuterol/Ipratropium (Duoneb -) 1 amp NEB QIDR [facility] Last Admin: 05/14/16 06:45 Dose: 1 amp Amino Acids (Prosource No Carb Liquid Pkt) 30 ml NGT DAILY [facility] Last Admin: 05/14/16 09:35 Dose: 30 ml Enoxaparin Sodium (Lovenox -) 40 mg SQ DAILY [facility] Last Admin: 05/14/16 09:35 Dose: 40 mg Hydrocortisone Sodium Succinate (Solu-Cortef -) 20 mg IVPB BID [facility] Last Admin: 05/14/16 09:36 Dose: 20 mg Pantoprazole Sodium (Protonix 40mg Ivpb (Pre-Docked)) 100 mls @ 200 mls/hr IVPB BID [facility] Last Admin: 05/14/16 09:34 Dose: 200 mls/hr Sodium Chloride (Normal Saline -) 1,000 mls @ 100 mls/hr IV ASDIR [facility] Last Admin: 05/14/16 00:45 Dose: 100 mls/hr Dopamine HCl/Dextrose (Dopamine 400 Mg/D5w -) 250 mls @ 13.438 mls/hr IVPB TITR CATHERINE; 5 MCG/KG/MIN PRN Reason: Protocol Last Titration: 05/14/16 00:25 Dose: 10 mcg/kg/min Vancomycin HCl (Vancomycin (Pre-Docked)) 250 mls @ 166.667 mls/hr IVPB BID@0300 ,1500 CATHERINE PRN Reason: Protocol Piperacillin Sod/Tazobactam Sod (Zosyn 4.5gm Ivpb (Pre-Docked)) 100 mls @ 200 mls/hr IVPB Q8H-IV CATHERINE PRN Reason: Protocol Last Admin: 05/14/16 09:37 Dose: 200 mls/hr Lactulose (Cephulac (Oral Use)) 20 gm PO HS PRN PRN Reason: CONSTIPATION Levothyroxine Sodium (Synthroid -) 88 mcg PO DAILY@0700 [facility] Last Admin: 05/13/16 07:06 Dose: 88 mcg Mirtazapine (Remeron -) 7.5 mg PO HS [facility] Last Admin: 05/13/16 22:35 Dose: 7.5 mg Mupirocin (Bactroban 2% Ointment -) 1 applic TP BID [facility] Last Admin: 05/14/16 09:37 Dose: 1 applic Sodium Chloride (Normal Saline -) 720 ml IV Q20M PRN PRN Reason: MAP<65mm Hg OR SBP <90 A/P 51 year old woman with PMHx of Multiple Sclerosis, Chronic Resp Failure with Trach Collar, Hx of recurrent UTI, Periods of hyponatremia presented with AMS/ Lethargy and found to have Sepsis with Hypotension and Na of 126. #Sepsis/Urinary Tract Infection/Chronic Resp Failure Continue Vanco/Zosyn as per ID follow up repeat cultures on Hydrocortisone IV IVF and Dopamine to keep MAP > 65 and CVP 10-12 ICU monitoring Vent support #Electrolyte Abnormalities Serum na is now within normal limits continue isotonic saline continue to trend Na, Mg, K, phos daily Tyshawn Doe DO
[2016-05-14] MEDS: ACETAMINOPHEN 325 MG TABLET (FP) PO PRN ×2 (10:24→21:11)
[2016-05-14 10:43] LABS: URINE BLOOD 1+ (NEGATIVE); URINE PROTEIN 1+ (NEGATIVE)
[2016-05-14 10:53] LABS: URINE RBC 5 /hpf (0-3); URINE WBC 14 /hpf (3-5)
--- NOTE | 2016-05-14 11:35 | PN ---
Physical Exam: SUBJECTIVE: Patient seen and examined at bedside in the ICU. She is trached and on vent at baseline mental status. Per nurse, overnight patient desaturated to the low 80s with skin discoloration and BP of 60s/50s. Low grade fever with Tmax 101.4F and received a dose of vanco and meropenem. Failed to place IJ line due to red swelling. Peripheral line placed in foot instead receiving dopamine gtt. OBJECTIVE: Trached on mechanical ventilation Vent settings: AC, RR 14, TV 450, FiO2 60, PEEP 5 On dopamine 10mcg Vital Signs Temperature 100.5 F H 05/14/16 08:00 Pulse Rate 88 05/14/16 11:06 Respiratory Rate 14 05/14/16 09:55 Blood Pressure 109/59 05/14/16 11:06 O2 Sat by Pulse Oximetry (%) 93 L 05/14/16 10:42 GENERAL: The patient is awake, alert, fully oriented EYES: pupils equal and reactive to light ENT: NG tube in place not receiving feed LUNGS: lound b/l rhonchi HEART: RRR ABDOMEN: Soft, nontender, nondistended, normoactive bowel sounds EXTREMITIES: no edema, peripheral line in place : perera in place, light yellow urine CBCD WBC 14.7 K/mm3 (4.0-10.0) H 05/14/16 05:00 RBC 3.61 M/mm3 (3.60-5.2) 05/14/16 05:00 Hgb 11.1 GM/dL (10.7-15.3) 05/14/16 05:00 Hct 33.1 % (32.4-45.2) 05/14/16 05:00 MCV 91.5 fl (80-96) 05/14/16 05:00 MCHC 33.5 g/dl (32.0-36.0) 05/14/16 05:00 RDW 17.5 % (11.6-15.6) H 05/14/16 05:00 Plt Count 473 K/MM3 (134-434) H 05/14/16 05:00 MPV 7.8 fl (7.5-11.1) 05/14/16 05:00 CMP Sodium 143 mmol/L (136-145) 05/14/16 05:00 Potassium 4.4 mmol/L (3.5-5.1) 05/14/16 05:00 Chloride 102 mmol/L (98-107) 05/14/16 05:00 Carbon Dioxide 31 mmol/L (21-32) 05/14/16 05:00 Anion Gap 10 (8-16) 05/14/16 05:00 BUN 30 mg/dL (7-18) H 05/14/16 05:00 Creatinine 0.6 mg/dL (0.55-1.02) 05/14/16 05:00 Creat Clearance w eGFR > 60 (>60) 05/14/16 05:00 Calcium 8.6 mg/dL (8.5-10.1) 05/14/16 05:00 Total Bilirubin 0.8 mg/dL (0.2-1.0) D 05/14/16 05:00 AST 22 U/L (15-37) 05/14/16 05:00 ALT 44 U/L (12-78) 05/14/16 05:00 Alkaline Phosphatase 188 U/L (45-117) H 05/14/16 05:00 Total Protein 6.4 g/dl (6.4-8.2) 05/14/16 05:00 Albumin 2.6 g/dl (3.4-5.0) L 05/14/16 05:00 Intake & Output 05/11/16 05/12/16 05/13/16 05/14/16 23:59 23:59 23:59 23:59 Intake Total 350 1766 1406 3215 Output Total 445 8256 9237 570 Balance -284 -3487 -1275 2763 Weight 76.5 kg 73.663 kg 71.668 kg 69.808 kg Active Medications Generic Name Dose Route Start Last Admin Trade Name Freq PRN Reason Stop Dose Admin Acetaminophen 650 mg 05/12/16 18:07 05/14/16 10:24 Tylenol - PO 650 mg Q6H PRN Administration FEVER OR PAIN Albuterol Sulfate 1 amp 05/14/16 00:36 Ventolin 0.083% Nebulizer Soln - NEB Q4H PRN SHORT OF BREATH/WHEEZING Albuterol/Ipratropium 1 amp 05/13/16 00:00 05/14/16 06:45 Duoneb - NEB 1 amp QIDR CATHERINE Administration Amino Acids 30 ml 05/13/16 10:00 05/14/16 09:35 Prosource No Carb Liquid Pkt NGT 30 ml DAILY CATHERINE Administration Enoxaparin Sodium 40 mg 05/13/16 10:00 05/14/16 09:35 Lovenox - SQ 40 mg DAILY CATHERINE Administration Hydrocortisone Sodium Succinate 20 mg 05/13/16 10:00 05/14/16 09:36 Solu-Cortef - IVPB 20 mg BID CATHERINE Administration Pantoprazole Sodium 100 mls @ 200 mls/hr 05/12/16 22:00 05/14/16 09:34 Protonix 40mg Ivpb (Pre-Docked) IVPB 200 mls/hr BID CATHERINE Administration Sodium Chloride 1,000 mls @ 100 mls/hr 05/14/16 00:45 05/14/16 00:45 Normal Saline - IV 100 mls/hr ASDIR CATHERINE Administration Dopamine HCl/Dextrose 250 mls @ 13.438 mls/hr 05/14/16 03:15 05/14/16 11:06 Dopamine 400 Mg/D5w - IVPB 21.5 mls/hr TITR CATHERINE Administration Protocol 5 MCG/KG/MIN Vancomycin HCl 250 mls @ 166.667 mls/hr 05/14/16 15:00 Vancomycin (Pre-Docked) IVPB BID@0300,1500 CATHERINE Protocol Piperacillin Sod/Tazobactam Sod 100 mls @ 200 mls/hr 05/14/16 10:00 05/14/16 09 :37 Zosyn 4.5gm Ivpb (Pre-Docked) IVPB 200 mls/hr Q8H-IV CATHERINE Administration Protocol Lactulose 20 gm 05/12/16 18:07 Cephulac (Oral Use) PO HS PRN CONSTIPATION Levothyroxine Sodium 88 mcg 05/13/16 07:00 05/13/16 07:06 Synthroid - PO 88 mcg DAILY@0700 CATHERINE Administration Mirtazapine 7.5 mg 05/12/16 22:00 05/13/16 22:35 Remeron - PO 7.5 mg HS CATHERINE Administration Mupirocin 1 applic 05/12/16 22:00 05/14/16 09:37 Bactroban 2% Ointment - TP 1 applic BID CATHERINE Administration Sodium Chloride 720 ml 05/12/16 18:07 Normal Saline - IV Q20M PRN MAP<65mm Hg OR SBP <90 Microbiology 05/13/16 01:40 Blood - Peripheral Venous Blood Culture - Preliminary NO GROWTH OBTAINED AFTER 24 HOURS, INCUBATION TO CONTINUE FOR 4 DAYS. 05/13/16 01:40 Blood - Peripheral Venous Blood Culture - Preliminary NO GROWTH OBTAINED AFTER 24 HOURS, INCUBATION TO CONTINUE FOR 4 DAYS. Imaging: CXR 05/14: no significant change compared to CXR on 05/13 CXR 05/13: slight improvement CXR 05/12: bibasilar pneumonia CXR 05/09: NG tube in place, tracheostomy tube, scoliosis, large heart, prominent knob and congestive changes with bibasilar infiltrates ASSESSMENT/PLAN: 51 yo F h/o HTN, multiple sclerosis with quadraplegia, chronic urinary retention and chronic respiratory insufficiency, seizure disorder and hypothyroidism admitted to the ICU for baclofen toxicity vs. sepsis 2/2 UTI. Patient is trached and on venti-mask during the day and on vent at night. She had multiple admissions for MDR infections such as UTI and decubitus ulcer in the sacral. Neuro: AMS 2/2 urosepsis in the setting of deteriorating MS - Mental status now at baseline - Cont. AED and zolof - Neuro check Q2H Pulm: Chronic respiratory insufficiency 2/2 ?MS - New size 6 Portex placed, no sign of air leakage - Trached on vent: see settings above - Observe off lasix for now - Will attempt SBT this PM - Maintain O2 Sat. > 88% - Nebulizers PRN - Daily CXR ID: Sepsis 2/2 UTI, Complicated vs Sacral decubitus ulcers; pneumonia - WBC still fluctuates with overnight low grade fever - Routine wound care for decub. ulcers - Restarted vancomycin and zosyn (Day 1) - F/U cultures Renal/: UTI in the setting of chronic urinary retention - NS 100ml/hr maintain MAP > 65% - Maintain perera for urinary retention Heme: Macrocytic Anemia - Baseline HGB @ 8.6-10 - Transfuse if HGB < 7 Cardiac: Hypotension - Titrate down pressors Endo: Hypothyrodism and ?adrenal insufficiency - Normal TSH and free T4 - Cont. synthroid Derm: Lower extremity purpura 2/2 drug allergy vs. skin irritation - Rashes resolved - New lesions noted, local skin care and monitor closely FEN - NS 100ml/hr - CMP within normal limits - Pureed diet, Tube feed on hold, resume after hemodynamically stable - Prophylaxis - DVT: lovenox 40mg QD - GI: on PPI Disposition - Cont. to monitor in ICU Code status - Full code Visit type - Emergency Visit Emergency Visit: No - New Patient This patient is new to me today: No - Critical Care Critical Care patient: Yes Total Critical Care Time (in minutes): 45 Critical Care Statement: The care of this patient involved high complexity decision making to prevent further life threatening deterioration of the patient 's condition and/or to evalute & treat vital organ system(s) failure or risk of failure.
--- NOTE | 2016-05-14 11:40 | PN ---
Teaching Attending Note Name of Resident: Mickey Mandel ATTENDING PHYSICIAN STATEMENT I saw and evaluated the patient. I reviewed the resident's note and discussed the case with the resident. I agree with the resident's findings and plan as documented. SUBJECTIVE: Pt seen and examined in the ICU. Events overnight noted. Febrile and hypotensive. Started on dopamine gtt peripherally after IVF boluses. OBJECTIVE: Last Vital Signs Temp Pulse Resp BP Pulse Ox 100.5 F H 88 14 109/59 93 L 05/14/16 08:00 05/14/16 11:06 05/14/16 09:55 05/14/16 11:06 05/14/16 10:42 Intake & Output 05/11/16 05/12/16 05/13/16 05/14/16 23:59 23:59 23:59 23:59 Intake Total 3504 1766 1406 3215 Output Total 4450 8200 3000 500 Balance -946 -6434 -1594 2715 Weight 168 lb 10.458 oz 162 lb 6.4 oz 158 lb 153 lb 14.4 oz Gen: vented, awake, alert Heart: RRR Lung: decreased breath sounds at the bases Abd: soft, nontender Ext: no edema CBC, BMP 05/14/16 05:00 05/14/16 05:00 Active Medications Acetaminophen (Tylenol -) 650 mg PO Q6H PRN PRN Reason: FEVER OR PAIN Last Admin: 05/14/16 10:24 Dose: 650 mg Albuterol Sulfate (Ventolin 0.083% Nebulizer Soln -) 1 amp NEB Q4H PRN PRN Reason: SHORT OF BREATH/WHEEZING Albuterol/Ipratropium (Duoneb -) 1 amp NEB QIDR [facility] Last Admin: 05/14/16 11:15 Dose: 1 amp Amino Acids (Prosource No Carb Liquid Pkt) 30 ml NGT DAILY [facility] Last Admin: 05/14/16 09:35 Dose: 30 ml Enoxaparin Sodium (Lovenox -) 40 mg SQ DAILY [facility] Last Admin: 05/14/16 09:35 Dose: 40 mg Hydrocortisone Sodium Succinate (Solu-Cortef -) 20 mg IVPB BID [facility] Last Admin: 05/14/16 09:36 Dose: 20 mg Pantoprazole Sodium (Protonix 40mg Ivpb (Pre-Docked)) 100 mls @ 200 mls/hr IVPB BID [facility] Last Admin: 05/14/16 09:34 Dose: 200 mls/hr Sodium Chloride (Normal Saline -) 1,000 mls @ 100 mls/hr IV ASDIR [facility] Last Admin: 05/14/16 00:45 Dose: 100 mls/hr Dopamine HCl/Dextrose (Dopamine 400 Mg/D5w -) 250 mls @ 13.438 mls/hr IVPB TITR CATHERINE; 5 MCG/KG/MIN PRN Reason: Protocol Last Admin: 05/14/16 11:06 Dose: 21.5 mls/hr Vancomycin HCl (Vancomycin (Pre-Docked)) 250 mls @ 166.667 mls/hr IVPB BID@0300 ,1500 CATHERINE PRN Reason: Protocol Piperacillin Sod/Tazobactam Sod (Zosyn 4.5gm Ivpb (Pre-Docked)) 100 mls @ 200 mls/hr IVPB Q8H-IV CATHERINE PRN Reason: Protocol Last Admin: 05/14/16 09:37 Dose: 200 mls/hr Lactulose (Cephulac (Oral Use)) 20 gm PO HS PRN PRN Reason: CONSTIPATION Levothyroxine Sodium (Synthroid -) 88 mcg PO DAILY@0700 [facility] Last Admin: 05/13/16 07:06 Dose: 88 mcg Mirtazapine (Remeron -) 7.5 mg PO HS [facility] Last Admin: 05/13/16 22:35 Dose: 7.5 mg Mupirocin (Bactroban 2% Ointment -) 1 applic TP BID [facility] Last Admin: 05/14/16 09:37 Dose: 1 applic Sodium Chloride (Normal Saline -) 720 ml IV Q20M PRN PRN Reason: MAP<65mm Hg OR SBP <90 ASSESSMENT AND PLAN: UTI Sacral Decubitus Ulcer r/o Pneumonia Septic Shock resolving Altered Mental Status from above improving Multiple Sclerosis Hypothyroidism Adrenal Insufficiency - antibiotics restarted per ID - f/u pending cultures - continue IVF - taper off dopamine gtt - continue hydrocortisone - spontaneous breathing trials as tolerated - inhaled bronchodilators - O2 to keep SpO2 >90% - DVT/GI prophylaxis - continue ICU monitoring
--- NOTE | 2016-05-14 13:09 | PN ---
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, MACHINE [employer] - Note 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: Medical events noted. Trach changed. Desatted last night to 50's. On ventilator , NPO. Selected Entries 05/12/16 05/12/16 05/12/16 00:00 02:00 04:00 Temperature 98.8 F 98.8 F 98.8 F 05/12/16 05/12/16 05/12/16 06:00 08:00 09:51 Temperature 99 F 98.4 F 98.3 F 05/12/16 05/12/16 05/12/16 10:00 14:00 18:00 Temperature 98.3 F 98.8 F 98.1 F 05/12/16 05/13/16 05/13/16 22:00 02:00 06:00 Temperature 99.1 F 100.7 F H 100.1 F H 05/13/16 05/13/16 05/13/16 08:00 14:00 18:00 Temperature 99.1 F 99.2 F 99.9 F H 05/13/16 05/13/16 05/13/16 20:00 22:00 23:30 Temperature 99.9 F H 100.2 F H 100.3 F H 05/14/16 05/14/16 05/14/16 00:30 02:00 04:00 Temperature 100.6 F H 100.9 F H 100.4 F H 05/14/16 05/14/16 05/14/16 06:00 08:00 10:00 Temperature 101.4 F H 100.5 F H 99.9 F H 05/14/16 11:59 Temperature 99.5 F Laboratory Tests 05/13/16 05:15 WBC 10.0 If pt improves and is strong enough for PO trials, may need MBS to r/o silent aspiration.
[2016-05-14] MEDS: VANCOMYCIN 1 GRAM (PRE-DOCKED) 250 ML IVPB SCH (14:50)
--- NOTE | 2016-05-14 14:58 | PN ---
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, Physician Chief Complaint: seen and examined in icu off pressors ng tube trach changed restarted tube feeds got a dose of meropenem last night tmax 100.5 - Current Medication List Current Medications: Active Medications Acetaminophen (Tylenol -) 650 mg PO Q6H PRN PRN Reason: FEVER OR PAIN Last Admin: 05/14/16 10:24 Dose: 650 mg Albuterol Sulfate (Ventolin 0.083% Nebulizer Soln -) 1 amp NEB Q4H PRN PRN Reason: SHORT OF BREATH/WHEEZING Albuterol/Ipratropium (Duoneb -) 1 amp NEB QIDR [facility] Last Admin: 05/14/16 11:15 Dose: 1 amp Amino Acids (Prosource No Carb Liquid Pkt) 30 ml NGT DAILY [facility] Last Admin: 05/14/16 09:35 Dose: 30 ml Enoxaparin Sodium (Lovenox -) 40 mg SQ DAILY [facility] Last Admin: 05/14/16 09:35 Dose: 40 mg Hydrocortisone Sodium Succinate (Solu-Cortef -) 20 mg IVPB BID [facility] Last Admin: 05/14/16 09:36 Dose: 20 mg Pantoprazole Sodium (Protonix 40mg Ivpb (Pre-Docked)) 100 mls @ 200 mls/hr IVPB BID [facility] Last Admin: 05/14/16 09:34 Dose: 200 mls/hr Sodium Chloride (Normal Saline -) 1,000 mls @ 100 mls/hr IV ASDIR [facility] Last Admin: 05/14/16 00:45 Dose: 100 mls/hr Dopamine HCl/Dextrose (Dopamine 400 Mg/D5w -) 250 mls @ 13.438 mls/hr IVPB TITR CATHERINE; 5 MCG/KG/MIN PRN Reason: Protocol Last Admin: 05/14/16 11:06 Dose: 21.5 mls/hr Vancomycin HCl (Vancomycin (Pre-Docked)) 250 mls @ 166.667 mls/hr IVPB BID@0300 ,1500 CATHERINE PRN Reason: Protocol Piperacillin Sod/Tazobactam Sod (Zosyn 4.5gm Ivpb (Pre-Docked)) 100 mls @ 200 mls/hr IVPB Q8H-IV CATHERINE PRN Reason: Protocol Last Admin: 05/14/16 09:37 Dose: 200 mls/hr Lactulose (Cephulac (Oral Use)) 20 gm PO HS PRN PRN Reason: CONSTIPATION Levothyroxine Sodium (Synthroid -) 88 mcg PO DAILY@0700 [facility] Last Admin: 05/13/16 07:06 Dose: 88 mcg Mirtazapine (Remeron -) 7.5 mg PO HS [facility] Last Admin: 05/13/16 22:35 Dose: 7.5 mg Mupirocin (Bactroban 2% Ointment -) 1 applic TP BID [facility] Last Admin: 05/14/16 09:37 Dose: 1 applic Sodium Chloride (Normal Saline -) 720 ml IV Q20M PRN PRN Reason: MAP<65mm Hg OR SBP <90 - Objective Vital Signs: Vital Signs Temperature 99.5 F 05/14/16 11:59 Pulse Rate 71 05/14/16 11:59 Respiratory Rate 15 05/14/16 14:39 Blood Pressure 137/42 05/14/16 11:59 O2 Sat by Pulse Oximetry (%) 93 L 05/14/16 10:42 Constitutional: Yes: Calm Eyes: Yes: Other HENT: Yes: Other (ng tube) Neck: Yes: Other (trac) Cardiovascular: Yes: Regular Rate and Rhythm, S1, S2 Respiratory: Yes: Mechanically Ventilated Gastrointestinal: Yes: Normal Bowel Sounds, Soft Extremities: Yes: Other (blister on right leg) Edema: No Wound/Incision: Yes: Other (scra lwounds) Labs: CBC, BMP 05/14/16 05:00 05/14/16 05:00 INR, PTT INR 1.19 (0.82-1.09) H 05/14/16 00:40 Assessment/Plan chronic resp failure sec to MS s/p trach on vent quadreplegic sacral wounds frequent turn pstion nutrition sepsis. s/p septic shock off pressors on hydrocortionse on zosyn and vancomycin NG tube for feeds till patient condition improves hypothyroid on synthroid gi dvt ppx icu monitirng
[2016-05-14] MEDS: MIRTAZAPINE 15 MG TABLET (FP) PO SCH (21:11)
[2016-05-15] MEDS: PIPERACILLIN/TAZOB 4.5 GM 100 ML IVPB SCH ×3 (01:06→18:09)
[2016-05-15] MEDS: SODIUM CHLORIDE 1,000 ML IV SCH (01:07)
[2016-05-15] MEDS: VANCOMYCIN 1 GRAM (PRE-DOCKED) 250 ML IVPB SCH ×2 (02:33→15:02)
[2016-05-15 06:17] LABS: CALCIUM 8.3 mg/dL (8.5-10.1)
[2016-05-15] MEDS: DOPAMINE 400 MG/D5W - 250 ML IVPB SCH (06:17)
[2016-05-15] MEDS: LEVOTHYROXINE NA 88 MCG TABLET (FP) PO SCH (06:17)
[2016-05-15 06:23] LABS: ALBUMIN 2.2 g/dl (3.4-5.0); ALK PHOS 142 U/L (45-117); ANION GAP 10 (8-16); BILIRUBIN,TOTAL 0.5 mg/dL (0.2-1.0); CO2 27 mmol/L (21-32); CREATININE 0.5 mg/dL (0.55-1.02); GLUCOSE,RANDOM 135 mg/dL (74-106); SGOT/AST 13 U/L (15-37); SGPT/ALT 30 U/L (12-78); TOT PROT 5.7 g/dl (6.4-8.2)
[2016-05-15] MEDS: ALBUTEROL SO4 2.5/IPRATROPIUM 0.5 INH SOL 3 ML VIAL.NEB. NEB SCH ×4 (06:46→23:52)
[2016-05-15 07:11] LABS: BASOPHIL 0.3 % (0-2.0); EOSINOPHIL 2.1 % (0-4.5); MCH 30.4 pg (25.7-33.7); MCHC 32.7 g/dl (32.0-36.0); MEAN CELL VOLUME 92.9 fl (80-96); MEAN PLT VOLUME 7.8 fl (7.5-11.1); NEUTROPHILS 76.5 % (42.8-82.8); PLATELET COUNT 449 K/MM3 (134-434); RDW 17.2 % (11.6-15.6); WHITE BLOOD COUNT 7.9 K/mm3 (4.0-10.0)
--- NOTE | 2016-05-15 07:15 | PN ---
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, Physician Chief Complaint: TAPAN Iniguez doing better Night before had deteriorated with fever hypotension and worsening respiratory status. Nursing staff had mentioned mother may have tried to feed her raising the question of aspiration Dopamine able to titrated OFF. Respiratory status 40% FIO2 - Current Medication List Current Medications: Active Medications Acetaminophen (Tylenol -) 650 mg PO Q6H PRN PRN Reason: FEVER OR PAIN Last Admin: 05/14/16 21:11 Dose: 650 mg Albuterol Sulfate (Ventolin 0.083% Nebulizer Soln -) 1 amp NEB Q4H PRN PRN Reason: SHORT OF BREATH/WHEEZING Albuterol/Ipratropium (Duoneb -) 1 amp NEB QIDR [facility] Last Admin: 05/15/16 06:46 Dose: 1 amp Amino Acids (Prosource No Carb Liquid Pkt) 30 ml NGT DAILY [facility] Last Admin: 05/14/16 09:35 Dose: 30 ml Enoxaparin Sodium (Lovenox -) 40 mg SQ DAILY [facility] Last Admin: 05/14/16 09:35 Dose: 40 mg Hydrocortisone Sodium Succinate (Solu-Cortef -) 20 mg IVPB BID [facility] Last Admin: 05/14/16 22:00 Dose: 20 mg Pantoprazole Sodium (Protonix 40mg Ivpb (Pre-Docked)) 100 mls @ 200 mls/hr IVPB BID [facility] Last Admin: 05/14/16 21:11 Dose: 200 mls/hr Sodium Chloride (Normal Saline -) 1,000 mls @ 100 mls/hr IV ASDIR [facility] Last Admin: 05/15/16 01:07 Dose: 100 mls/hr Dopamine HCl/Dextrose (Dopamine 400 Mg/D5w -) 250 mls @ 13.438 mls/hr IVPB TITR CATHERINE; 5 MCG/KG/MIN PRN Reason: Protocol Last Admin: 05/15/16 06:17 Dose: Not Given Vancomycin HCl (Vancomycin (Pre-Docked)) 250 mls @ 166.667 mls/hr IVPB BID@0300 ,1500 CATHERINE PRN Reason: Protocol Last Admin: 05/15/16 02:33 Dose: 166.667 mls/hr Piperacillin Sod/Tazobactam Sod (Zosyn 4.5gm Ivpb (Pre-Docked)) 100 mls @ 200 mls/hr IVPB Q8H-IV CATHERINE PRN Reason: Protocol Last Admin: 05/15/16 01:06 Dose: 200 mls/hr Lactulose (Cephulac (Oral Use)) 20 gm PO HS PRN PRN Reason: CONSTIPATION Levothyroxine Sodium (Synthroid -) 88 mcg PO DAILY@0700 [facility] Last Admin: 05/15/16 06:17 Dose: 88 mcg Mirtazapine (Remeron -) 7.5 mg PO HS [facility] Last Admin: 05/14/16 21:11 Dose: 7.5 mg Mupirocin (Bactroban 2% Ointment -) 1 applic TP BID [facility] Last Admin: 05/14/16 21:15 Dose: 1 applic Sodium Chloride (Normal Saline -) 720 ml IV Q20M PRN PRN Reason: MAP<65mm Hg OR SBP <90 - Objective Vital Signs: Vital Signs Temperature 98.7 F 05/15/16 06:00 Pulse Rate 65 05/15/16 06:00 Respiratory Rate 18 05/15/16 06:47 Blood Pressure 117/61 05/15/16 06:00 O2 Sat by Pulse Oximetry (%) 93 L 05/14/16 10:42 Constitutional: Yes: No Distress, Other (On the vent) Neck: Yes: Other (Tracheostpmy) Cardiovascular: Yes: Regular Rate and Rhythm, S1, S2 Respiratory: Yes: WNL, Regular, CTA Bilaterally, Rhonchi Gastrointestinal: Yes: WNL, Normal Bowel Sounds, Soft. No: Tenderness Extremities: No: Cold, Cool, Cyanosis Edema: No Wound/Incision: Yes: Other (sacral decubitus ulcer) Labs: CBC, BMP 05/15/16 05:00 INR, PTT INR 1.19 (0.82-1.09) H 05/14/16 00:40 Problem List - Problems (1) Sepsis syndrome Code(s): ZKE2562 - (2) Urinary tract infection Code(s): N39.0 - URINARY TRACT INFECTION, SITE NOT SPECIFIED (3) Multiple sclerosis Code(s): G35 - MULTIPLE SCLEROSIS (4) Respiratory failure Code(s): J96.90 - RESPIRATORY FAILURE, UNSP, UNSP W HYPOXIA OR HYPERCAPNIA (5) Multiple drug resistant organism (MDRO) culture positive Code(s): Z16.24 - RESISTANCE TO MULTIPLE ANTIBIOTICS Assessment/Plan Microbiology 05/09/16 11:35 Blood - Peripheral Venous Blood Culture - Final NO GROWTH AFTER 5 DAYS INCUBATION 05/09/16 11:23 Blood - Peripheral Venous Blood Culture - Final NO GROWTH AFTER 5 DAYS INCUBATION 05/13/16 01:40 Urine - Urine Perera Urine Culture - Preliminary Lactose Fermenting Neg Bacilli 05/13/16 01:40 Blood - Peripheral Venous Blood Culture - Preliminary NO GROWTH OBTAINED AFTER 48 HOURS, INCUBATION TO CONTINUE FOR 3 DAYS. 05/13/16 01:40 Blood - Peripheral Venous Blood Culture - Preliminary NO GROWTH OBTAINED AFTER 48 HOURS, INCUBATION TO CONTINUE FOR 3 DAYS. Laboratory Tests 05/14/16 05/14/16 05/15/16 00:40 05:00 05:00 WBC 14.7 H Hgb 11.1 Plt Count 473 H INR 1.19 H BUN 25 H Creatinine 0.5 L Creat Clearance w eGFR > 60 Total Bilirubin 0.5 D AST 13 L D ALT 30 D Alkaline Phosphatase 142 H D 05/15/16 05:00 WBC Pending Hgb Pending Plt Count Pending INR BUN Creatinine Creat Clearance w eGFR Total Bilirubin AST ALT Alkaline Phosphatase Assessment Sepsis syndrome now her 2nd episode This while in the ICU. Possiblity of aspiration PNA raised as she was trying to be fed by mother then developed respiratory distress. Did not see infiltrate on yesterday chest xray. Recurrent UTI Chronic urinary retension. Colonization of perera catheter History of resistant organisms in past on isolation Multiple sclerosis Decubitus ulcer sacrum Plan At this point she seems better I would continue current antibiotics Vanco and Zosyn day 2 ( GNB in urine) Adjust pending final c/s Abigail Magana suggested silent aspiration likely and not to feed 35 critical care time spent with patient Anam PATIÑO
[2016-05-15] MEDS: PANTOPRAZOLE SODIUM 100 ML IVPB SCH ×2 (09:34→22:20)
[2016-05-15] MEDS: AMINO ACIDS/PROTEIN HYDROLYS 30 ML LIQUID.PKT NGT SCH (09:34)
[2016-05-15] MEDS: HYDROCORTISONE SOD SUCCINATE 100 MG/2 ML VIAL IVPB SCH (09:35)
[2016-05-15] MEDS: ENOXAPARIN NA (PORCINE) 40 MG/0.4 ML DISP.SYRIN SQ SCH (09:35)
[2016-05-15] MEDS: MUPIROCIN 2% TOPICAL OINTMENT 22 GM TUBE TP SCH ×2 (09:36→22:22)
--- NOTE | 2016-05-15 11:44 | PN ---
Teaching Attending Note Name of Resident: Mickey Mandel ATTENDING PHYSICIAN STATEMENT I saw and evaluated the patient. I reviewed the resident's note and discussed the case with the resident. I agree with the resident's findings and plan as documented. SUBJECTIVE: Patient seen and examined in the ICU. Transient hypotension overnight that required Dopamine. Afebrile this AM. Awake and responsive. CXR: Some increased interstitial infiltrates at the bases Left > right OBJECTIVE: Intake & Output 05/12/16 05/13/16 05/14/16 05/15/16 23:59 23:59 23:59 23:59 Intake Total 1766 1406 4935 2890 Output Total 8200 3000 1200 700 Balance -6400 -7594 3735 2190 Weight 162 lb 6.4 oz 158 lb 153 lb 14.4 oz 157 lb 10.088 oz Last Vital Signs Temp Pulse Resp BP Pulse Ox 98.4 F 78 25 H 134/95 97 05/15/16 10:00 05/15/16 10:21 05/15/16 10:00 05/15/16 10:00 05/15/16 10:21 Active Medications Acetaminophen (Tylenol -) 650 mg PO Q6H PRN PRN Reason: FEVER OR PAIN Last Admin: 05/14/16 21:11 Dose: 650 mg Albuterol Sulfate (Ventolin 0.083% Nebulizer Soln -) 1 amp NEB Q4H PRN PRN Reason: SHORT OF BREATH/WHEEZING Albuterol/Ipratropium (Duoneb -) 1 amp NEB QIDR [facility]INE Last Admin: 05/15/16 10:59 Dose: 1 amp Amino Acids (Prosource No Carb Liquid Pkt) 30 ml NGT DAILY [facility] Last Admin: 05/15/16 09:34 Dose: 30 ml Enoxaparin Sodium (Lovenox -) 40 mg SQ DAILY [facility]INE Last Admin: 05/15/16 09:35 Dose: 40 mg Hydrocortisone Sodium Succinate (Solu-Cortef -) 20 mg IVPB BID [facility]ATHERINE Last Admin: 05/15/16 09:35 Dose: 20 mg Pantoprazole Sodium (Protonix 40mg Ivpb (Pre-Docked)) 100 mls @ 200 mls/hr IVPB BID [facility]ERINE Last Admin: 05/15/16 09:34 Dose: 200 mls/hr Sodium Chloride (Normal Saline -) 1,000 mls @ 100 mls/hr IV ASDIR [facility]ATHERINE Last Admin: 05/15/16 01:07 Dose: 100 mls/hr Dopamine HCl/Dextrose (Dopamine 400 Mg/D5w -) 250 mls @ 13.438 mls/hr IVPB TITR CATHERINE; 5 MCG/KG/MIN PRN Reason: Protocol Last Admin: 05/15/16 06:17 Dose: Not Given Vancomycin HCl (Vancomycin (Pre-Docked)) 250 mls @ 166.667 mls/hr IVPB BID@0300 ,1500 CATHERINE PRN Reason: Protocol Last Admin: 05/15/16 02:33 Dose: 166.667 mls/hr Piperacillin Sod/Tazobactam Sod (Zosyn 4.5gm Ivpb (Pre-Docked)) 100 mls @ 200 mls/hr IVPB Q8H-IV CATHERINE PRN Reason: Protocol Last Admin: 05/15/16 09:34 Dose: 200 mls/hr Lactulose (Cephulac (Oral Use)) 20 gm PO HS PRN PRN Reason: CONSTIPATION Levothyroxine Sodium (Synthroid -) 88 mcg PO DAILY@0700 [facility] Last Admin: 05/15/16 06:17 Dose: 88 mcg Mirtazapine (Remeron -) 7.5 mg PO HS [facility] Last Admin: 05/14/16 21:11 Dose: 7.5 mg Mupirocin (Bactroban 2% Ointment -) 1 applic TP BID [facility] Last Admin: 05/15/16 09:36 Dose: 1 applic Sodium Chloride (Normal Saline -) 720 ml IV Q20M PRN PRN Reason: MAP<65mm Hg OR SBP <90 Gen: vented, awake, alert Heart: RRR Lung: decreased breath sounds at the bases Abd: soft, nontender Ext: no edema Laboratory Results - last 24 hr 05/10/16 05/14/16 05/15/16 12:20 00:40 05:00 WBC RBC Hgb Hct MCV MCHC RDW Plt Count MPV Neutrophils % Lymphocytes % Monocytes % Eosinophils % Basophils % Sodium 143 Potassium 3.4 L D Chloride 106 Carbon Dioxide 27 Anion Gap 10 BUN 25 H Creatinine 0.5 L Creat Clearance w eGFR > 60 Random Glucose 135 H Calcium 8.3 L Total Bilirubin 0.5 D AST 13 L D ALT 30 D Alkaline Phosphatase 142 H D Total Protein 5.7 L Albumin 2.2 L Free T4 Cancelled Blood Type O POSITIVE Antibody Screen Negative Crossmatch See Detail Spec Expiration Date 05/15/16 05:00 WBC 7.9 D RBC 2.95 L Hgb 9.0 L D Hct 27.4 L D MCV 92.9 MCHC 32.7 RDW 17.2 H Plt Count 449 H MPV 7.8 Neutrophils % 76.5 Lymphocytes % 13.4 D Monocytes % 7.7 Eosinophils % 2.1 D Basophils % 0.3 Sodium Potassium Chloride Carbon Dioxide Anion Gap BUN Creatinine Creat Clearance w eGFR Random Glucose Calcium Total Bilirubin AST ALT Alkaline Phosphatase Total Protein Albumin Free T4 Blood Type Antibody Screen Crossmatch Spec Expiration Date ASSESSMENT AND PLAN: UTI Sacral Decubitus Ulcer r/o Pneumonia Septic Shock resolving Altered Mental Status from above improving Multiple Sclerosis Hypothyroidism Adrenal Insufficiency - ABX per ID - f/u cultures - Monitor off Dopamine - Taper hydrocortisone - spontaneous breathing trials as tolerated - inhaled bronchodilators - O2 to keep SpO2 >90% - DVT/GI prophylaxis - continue ICU monitoring Dr Fox CCTime 35"
--- NOTE | 2016-05-15 11:46 | PN ---
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 (short form) - Note 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: Renal Followup for Hyponatremia Pt seen and examined in the ICU awake and alert on the Vent no fevers overnight, BP stable off dopamine on IVF getting NGT feeds mother at the bedside Vital Signs Temperature 98.4 F 05/15/16 10:00 Pulse Rate 78 05/15/16 10:21 Respiratory Rate 25 H 05/15/16 10:00 Blood Pressure 134/95 05/15/16 10:00 O2 Sat by Pulse Oximetry (%) 97 05/15/16 10:21 Intake & Output 05/12/16 05/13/16 05/14/16 05/15/16 23:59 23:59 23:59 23:59 Intake Total 1766 1406 4935 2890 Output Total 8200 3000 1200 700 Balance -6061 -1594 3735 2190 Weight 162 lb 6.4 oz 158 lb 153 lb 14.4 oz 157 lb 10.088 oz Gen: Awake and alert, NAD, NGT in place HEENT: Trach in place, on Vent CVS: RRR, No M/R Lungs: Dec BS Abd: Soft NT/ND Ext: no edema, clubbing or cyanosis : perera in place CBC, BMP 05/15/16 05:00 05/15/16 05:00 Laboratory Tests 05/15/16 05:00 Calcium 8.3 L Albumin 2.2 L Current Medications Acetaminophen (Tylenol -) 650 mg PO Q6H PRN PRN Reason: FEVER OR PAIN Last Admin: 05/14/16 21:11 Dose: 650 mg Albuterol Sulfate (Ventolin 0.083% Nebulizer Soln -) 1 amp NEB Q4H PRN PRN Reason: SHORT OF BREATH/WHEEZING Albuterol/Ipratropium (Duoneb -) 1 amp NEB QIDR [facility] Last Admin: 05/15/16 10:59 Dose: 1 amp Amino Acids (Prosource No Carb Liquid Pkt) 30 ml NGT DAILY [facility] Last Admin: 05/15/16 09:34 Dose: 30 ml Enoxaparin Sodium (Lovenox -) 40 mg SQ DAILY [facility] Last Admin: 05/15/16 09:35 Dose: 40 mg Hydrocortisone Sodium Succinate (Solu-Cortef -) 20 mg IVPB BID [facility] Last Admin: 05/15/16 09:35 Dose: 20 mg Pantoprazole Sodium (Protonix 40mg Ivpb (Pre-Docked)) 100 mls @ 200 mls/hr IVPB BID [facility] Last Admin: 05/15/16 09:34 Dose: 200 mls/hr Sodium Chloride (Normal Saline -) 1,000 mls @ 100 mls/hr IV ASDIR [facility] Last Admin: 05/15/16 01:07 Dose: 100 mls/hr Dopamine HCl/Dextrose (Dopamine 400 Mg/D5w -) 250 mls @ 13.438 mls/hr IVPB TITR CATHERINE; 5 MCG/KG/MIN PRN Reason: Protocol Last Admin: 05/15/16 06:17 Dose: Not Given Vancomycin HCl (Vancomycin (Pre-Docked)) 250 mls @ 166.667 mls/hr IVPB BID@0300 ,1500 CATHERINE PRN Reason: Protocol Last Admin: 05/15/16 02:33 Dose: 166.667 mls/hr Piperacillin Sod/Tazobactam Sod (Zosyn 4.5gm Ivpb (Pre-Docked)) 100 mls @ 200 mls/hr IVPB Q8H-IV CATHERINE PRN Reason: Protocol Last Admin: 05/15/16 09:34 Dose: 200 mls/hr Lactulose (Cephulac (Oral Use)) 20 gm PO HS PRN PRN Reason: CONSTIPATION Levothyroxine Sodium (Synthroid -) 88 mcg PO DAILY@0700 [facility] Last Admin: 05/15/16 06:17 Dose: 88 mcg Mirtazapine (Remeron -) 7.5 mg PO HS [facility] Last Admin: 05/14/16 21:11 Dose: 7.5 mg Mupirocin (Bactroban 2% Ointment -) 1 applic TP BID [facility] Last Admin: 05/15/16 09:36 Dose: 1 applic Sodium Chloride (Normal Saline -) 720 ml IV Q20M PRN PRN Reason: MAP<65mm Hg OR SBP <90 A/P 51 year old woman with PMHx of Multiple Sclerosis, Chronic Resp Failure with Trach Collar, Hx of recurrent UTI, Periods of hyponatremia presented with AMS/ Lethargy and found to have Sepsis with Hypotension and Na of 126. #Sepsis/Urinary Tract Infection/Chronic Resp Failure Continue Vanco/Zosyn as per ID Urine cultures grew gram negative bacilli BP improved, off pressers can discontinue IVF if BP stable ICU monitoring Vent support #Electrolyte Abnormalities continue tube feeds as per Nutrition recommendations Free water with tube feeds Trend Na, K, Mg, Phos #Anemia Hgb is 9 today, from 11 yesterday Trend CBC Q12h Transfuse as per ICU protocol Tyshawn Doe DO
--- NOTE | 2016-05-15 12:33 | PN ---
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, Physician Chief Complaint: no fever over night cbc drop in hgb patient is on iv fluids will recheck on iv abx has knee pain - Current Medication List Current Medications: Active Medications Acetaminophen (Tylenol -) 650 mg PO Q6H PRN PRN Reason: FEVER OR PAIN Last Admin: 05/14/16 21:11 Dose: 650 mg Albuterol Sulfate (Ventolin 0.083% Nebulizer Soln -) 1 amp NEB Q4H PRN PRN Reason: SHORT OF BREATH/WHEEZING Albuterol/Ipratropium (Duoneb -) 1 amp NEB QIDR [facility] Last Admin: 05/15/16 10:59 Dose: 1 amp Amino Acids (Prosource No Carb Liquid Pkt) 30 ml NGT DAILY [facility] Last Admin: 05/15/16 09:34 Dose: 30 ml Enoxaparin Sodium (Lovenox -) 40 mg SQ DAILY [facility] Last Admin: 05/15/16 09:35 Dose: 40 mg Hydrocortisone Sodium Succinate (Solu-Cortef -) 20 mg IVPB BID [facility] Last Admin: 05/15/16 09:35 Dose: 20 mg Pantoprazole Sodium (Protonix 40mg Ivpb (Pre-Docked)) 100 mls @ 200 mls/hr IVPB BID [facility] Last Admin: 05/15/16 09:34 Dose: 200 mls/hr Sodium Chloride (Normal Saline -) 1,000 mls @ 100 mls/hr IV ASDIR [facility] Last Admin: 05/15/16 01:07 Dose: 100 mls/hr Dopamine HCl/Dextrose (Dopamine 400 Mg/D5w -) 250 mls @ 13.438 mls/hr IVPB TITR CATHERINE; 5 MCG/KG/MIN PRN Reason: Protocol Last Admin: 05/15/16 06:17 Dose: Not Given Vancomycin HCl (Vancomycin (Pre-Docked)) 250 mls @ 166.667 mls/hr IVPB BID@0300 ,1500 CATHERINE PRN Reason: Protocol Last Admin: 05/15/16 02:33 Dose: 166.667 mls/hr Piperacillin Sod/Tazobactam Sod (Zosyn 4.5gm Ivpb (Pre-Docked)) 100 mls @ 200 mls/hr IVPB Q8H-IV CATHERINE PRN Reason: Protocol Last Admin: 05/15/16 09:34 Dose: 200 mls/hr Lactulose (Cephulac (Oral Use)) 20 gm PO HS PRN PRN Reason: CONSTIPATION Levothyroxine Sodium (Synthroid -) 88 mcg PO DAILY@0700 [facility] Last Admin: 05/15/16 06:17 Dose: 88 mcg Mirtazapine (Remeron -) 7.5 mg PO HS [facility] Last Admin: 05/14/16 21:11 Dose: 7.5 mg Mupirocin (Bactroban 2% Ointment -) 1 applic TP BID [facility] Last Admin: 05/15/16 09:36 Dose: 1 applic Sodium Chloride (Normal Saline -) 720 ml IV Q20M PRN PRN Reason: MAP<65mm Hg OR SBP <90 - Objective Vital Signs: Vital Signs Temperature 98.4 F 05/15/16 10:00 Pulse Rate 78 05/15/16 10:21 Respiratory Rate 16 05/15/16 12:15 Blood Pressure 134/95 05/15/16 10:00 O2 Sat by Pulse Oximetry (%) 97 05/15/16 10:21 Constitutional: Yes: Calm, Other (awake alert) Neck: Yes: Other (trach, NG tube) Cardiovascular: Yes: Regular Rate and Rhythm, S1, S2 Respiratory: Yes: CTA Bilaterally, Diminished (at bases), Mechanically Ventilated Gastrointestinal: Yes: Normal Bowel Sounds, Soft Extremities: Yes: Other (blister on left leg scaral decubitus) Edema: No Neurological: Yes: Alert, Oriented, Pre-Existing Deficit Labs: CBC, BMP 05/15/16 05:00 05/15/16 05:00 INR, PTT INR 1.19 (0.82-1.09) H 05/14/16 00:40 Assessment/Plan chronic resp failure sec to MS s/p trach on vent quadreplegic sacral wounds frequent turn postion nutrition sepsis. s/p septic shock off pressors on hydrocortisone on zosyn and vancomycin NG tube for feeds till patient condition improves hypothyroid on synthroid gi dvt ppx icu monitirng anemia: check cbc in am if still low will transfuse one unit prbc, check iron panel- maybe diluational repleted potassium gi/dvtppx
[2016-05-15] MEDS ORDERED: POTASSIUM CHLORIDE 40 MEQ/30 ML UNIT DOSE CUP NGT ONE (12:45)
[2016-05-15] MEDS ORDERED: POTASSIUM CHLORIDE 40 MEQ/30 ML UNIT DOSE CUP ONE (13:32)
[2016-05-15] MEDS: LIDOCAINE HCL 5% TOP OINTMENT 50 GM TUBE TP SCH (15:02)
--- NOTE | 2016-05-15 18:02 | PN ---
Physical Exam: SUBJECTIVE: Patient seen and examined at bedside in the ICU. She reported feeling fine overnight, denied sob, chest pain, fever, chills, urinary or bowel sx. Per nurse , no acute respiratory event overnight. OBJECTIVE: Trached on mechanical ventilation, did not tolerate CPAP when being cleaned or turned Vent settings: AC, RR 14, TV 450, FiO2 60, PEEP 5 Off pressors Vital Signs Period Temp Pulse Resp BP Sys/Morillo Pulse Ox Last 24 Hr 98.4 F-99.3 F 64-89 14-27 117-134/47-95 97-97 GENERAL: The patient is awake, alert, fully oriented EYES: pupils equal and reactive to light ENT: NG tube in place LUNGS: lound b/l rhonchi persist HEART: RRR ABDOMEN: Soft, nontender, nondistended, normoactive bowel sounds EXTREMITIES: no edema, peripheral line in place : perera in place, light yellow urine SKIN: No sign of rash or lesion CBCD WBC 7.9 K/mm3 (4.0-10.0) D 05/15/16 05:00 RBC 2.95 M/mm3 (3.60-5.2) L 05/15/16 05:00 Hgb 9.0 GM/dL (10.7-15.3) L D 05/15/16 05:00 Hct 27.4 % (32.4-45.2) L D 05/15/16 05:00 MCV 92.9 fl (80-96) 05/15/16 05:00 MCHC 32.7 g/dl (32.0-36.0) 05/15/16 05:00 RDW 17.2 % (11.6-15.6) H 05/15/16 05:00 Plt Count 449 K/MM3 (134-434) H 05/15/16 05:00 MPV 7.8 fl (7.5-11.1) 05/15/16 05:00 CMP Sodium 143 mmol/L (136-145) 05/15/16 05:00 Potassium 3.4 mmol/L (3.5-5.1) L D 05/15/16 05:00 Chloride 106 mmol/L (98-107) 05/15/16 05:00 Carbon Dioxide 27 mmol/L (21-32) 05/15/16 05:00 Anion Gap 10 (8-16) 05/15/16 05:00 BUN 25 mg/dL (7-18) H 05/15/16 05:00 Creatinine 0.5 mg/dL (0.55-1.02) L 05/15/16 05:00 Creat Clearance w eGFR > 60 (>60) 05/15/16 05:00 Calcium 8.3 mg/dL (8.5-10.1) L 05/15/16 05:00 Total Bilirubin 0.5 mg/dL (0.2-1.0) D 05/15/16 05:00 AST 13 U/L (15-37) L D 05/15/16 05:00 ALT 30 U/L (12-78) D 05/15/16 05:00 Alkaline Phosphatase 142 U/L (45-117) H D 05/15/16 05:00 Total Protein 5.7 g/dl (6.4-8.2) L 05/15/16 05:00 Albumin 2.2 g/dl (3.4-5.0) L 05/15/16 05:00 Intake & Output 05/12/16 05/13/16 05/14/16 05/15/16 23:59 23:59 23:59 23:59 Intake Total 1766 1406 4935 2890 Output Total 8200 3000 1200 1100 Balance -6557 -4879 6455 1790 Weight 73.663 kg 71.668 kg 69.808 kg 71.5 kg Active Medications Generic Name Dose Route Start Last Admin Trade Name Freq PRN Reason Stop Dose Admin Acetaminophen 650 mg 05/12/16 18:07 05/14/16 21:11 Tylenol - PO 650 mg Q6H PRN Administration FEVER OR PAIN Albuterol Sulfate 1 amp 05/14/16 00:36 Ventolin 0.083% Nebulizer Soln - NEB Q4H PRN SHORT OF BREATH/WHEEZING Albuterol/Ipratropium 1 amp 05/13/16 00:00 05/15/16 10:59 Duoneb - NEB 1 amp QIDR CATHERINE Administration Amino Acids 30 ml 05/13/16 10:00 05/15/16 09:34 Prosource No Carb Liquid Pkt NGT 30 ml DAILY CATHERINE Administration Enoxaparin Sodium 40 mg 05/13/16 10:00 05/15/16 09:35 Lovenox - SQ 40 mg DAILY CATHERINE Administration Hydrocortisone Sodium Succinate 20 mg 05/16/16 08:00 Solu-Cortef - IVPB DAILY@0800 CATHERINE Pantoprazole Sodium 100 mls @ 200 mls/hr 05/12/16 22:00 05/15/16 09:34 Protonix 40mg Ivpb (Pre-Docked) IVPB 200 mls/hr BID CATHERINE Administration Sodium Chloride 1,000 mls @ 100 mls/hr 05/14/16 00:45 05/15/16 01:07 Normal Saline - IV 100 mls/hr ASDIR CATHERINE Administration Dopamine HCl/Dextrose 250 mls @ 13.438 mls/hr 05/14/16 03:15 05/15/16 06:17 Dopamine 400 Mg/D5w - IVPB Not Given TITR CATHERINE Protocol 5 MCG/KG/MIN Vancomycin HCl 250 mls @ 166.667 mls/hr 05/14/16 15:00 05/15/16 15:02 Vancomycin (Pre-Docked) IVPB 166.667 mls/hr BID@0300,1500 CATHERINE Administration Protocol Piperacillin Sod/Tazobactam Sod 100 mls @ 200 mls/hr 05/14/16 10:00 05/15/16 09 :34 Zosyn 4.5gm Ivpb (Pre-Docked) IVPB 200 mls/hr Q8H-IV CATHERINE Administration Protocol Lactulose 20 gm 05/12/16 18:07 Cephulac (Oral Use) PO HS PRN CONSTIPATION Levothyroxine Sodium 88 mcg 05/13/16 07:00 05/15/16 06:17 Synthroid - PO 88 mcg DAILY@0700 CATHERINE Administration Lidocaine HCl 1 applic 05/15/16 12:30 05/15/16 15:02 Xylocaine 5% Top. Ointment TP 1 applic DAILY CATHERINE Administration Mirtazapine 7.5 mg 05/12/16 22:00 05/14/16 21:11 Remeron - PO 7.5 mg HS CATHERINE Administration Mupirocin 1 applic 05/12/16 22:00 05/15/16 09:36 Bactroban 2% Ointment - TP 1 applic BID CATHERINE Administration Sodium Chloride 720 ml 05/12/16 18:07 Normal Saline - IV Q20M PRN MAP<65mm Hg OR SBP <90 Microbiology 05/13/16 01:40 Urine - Urine Perera Urine Culture - Preliminary Lactose Fermenting Neg Bacilli 05/14/16 07:00 Sputum - Endotrachea Suction/Ventilator Gram Stain - Final 05/14/16 07:00 Sputum - Endotrachea Suction/Ventilator Sputum Culture - Preliminary Non Lactose Fermenting Gnb 05/13/16 01:40 Blood - Peripheral Venous Blood Culture - Preliminary NO GROWTH OBTAINED AFTER 48 HOURS, INCUBATION TO CONTINUE FOR 3 DAYS. 05/13/16 01:40 Blood - Peripheral Venous Blood Culture - Preliminary NO GROWTH OBTAINED AFTER 48 HOURS, INCUBATION TO CONTINUE FOR 3 DAYS. Imaging: CXR 05/15: Slightly worse. Progressive pulmonary and pleural changes, left greater than right CXR 05/14: no significant change compared to CXR on 05/13 CXR 05/13: slight improvement CXR 05/12: bibasilar pneumonia CXR 05/09: NG tube in place, tracheostomy tube, scoliosis, large heart, prominent knob and congestive changes with bibasilar infiltrates ASSESSMENT/PLAN: 51 yo F h/o HTN, multiple sclerosis with quadraplegia, chronic urinary retention and chronic respiratory insufficiency, seizure disorder and hypothyroidism admitted to the ICU for baclofen toxicity vs. sepsis 2/2 UTI. Patient is trached and on venti-mask during the day and on vent at night. She had multiple admissions for MDR infections such as UTI and decubitus ulcer in the sacral. Neuro: AMS 2/2 urosepsis in the setting of deteriorating MS - Mental status now at baseline - Cont. AED and zolof - Neuro check Q2H Pulm: Chronic respiratory insufficiency 2/2 ?MS - Trached with newly replaced portex 6 on vent: see settings above - Observe off lasix for now - Did not tolerate CPAP when being turned or cleaned - Maintain O2 Sat. > 88% - Nebulizers PRN - Daily CXR ID: Sepsis 2/2 UTI, Complicated vs Sacral decubitus ulcers; pneumonia - WBC normalized with no fevers - Positive urine and sputum cultures, f/u official - Routine wound care for decub. ulcers - Restarted vancomycin and zosyn (Day 2) Renal/: UTI in the setting of chronic urinary retention - Maintain perera for urinary retention Heme: Macrocytic Anemia - Baseline HGB @ 8.6-10 - Transfuse if HGB < 7 Cardiac: Hypotension - Off pressor now Endo: Hypothyrodism and ?adrenal insufficiency - Normal TSH and free T4 - Cont. synthroid - Taper down steroids Derm: Lower extremity purpura 2/2 drug allergy vs. skin irritation - Rashes resolved - Local skin care and monitor FEN - IVF not indicated at this point - Cont. to monitor lytes - Tube feed perative - Prophylaxis - DVT: lovenox 40mg QD - GI: on PPI Disposition - Cont. to monitor in ICU Code status - Full code Visit type - Emergency Visit Emergency Visit: No - New Patient This patient is new to me today: No - Critical Care Critical Care patient: Yes Total Critical Care Time (in minutes): 45 Critical Care Statement: The care of this patient involved high complexity decision making to prevent further life threatening deterioration of the patient 's condition and/or to evalute & treat vital organ system(s) failure or risk of failure.
[2016-05-15] MEDS: MIRTAZAPINE 15 MG TABLET (FP) PO SCH (22:21)
[2016-05-16] MEDS: PIPERACILLIN/TAZOB 4.5 GM 100 ML IVPB SCH ×3 (01:52→17:50)
[2016-05-16] MEDS: VANCOMYCIN 1 GRAM (PRE-DOCKED) 250 ML IVPB SCH (02:13)
[2016-05-16 06:26] LABS: BASOPHIL 0.4 % (0-2.0); EOSINOPHIL 2.6 % (0-4.5); MCH 30.9 pg (25.7-33.7); MCHC 33.1 g/dl (32.0-36.0); MEAN CELL VOLUME 93.3 fl (80-96); MEAN PLT VOLUME 7.5 fl (7.5-11.1); NEUTROPHILS 76.4 % (42.8-82.8); PLATELET COUNT 434 K/MM3 (134-434); RDW 17.3 % (11.6-15.6); WHITE BLOOD COUNT 7.7 K/mm3 (4.0-10.0)
[2016-05-16 06:36] LABS: ALK PHOS 124 U/L (45-117); ANION GAP 5 (8-16); BILIRUBIN,TOTAL 0.5 mg/dL (0.2-1.0); CO2 31 mmol/L (21-32); CREATININE 0.4 mg/dL (0.55-1.02); GLUCOSE,RANDOM 145 mg/dL (74-106); MAGNESIUM 1.8 mg/dL (1.8-2.4); PHOSPHOROUS 2.1 mg/dL (2.5-4.9); SGOT/AST 7 U/L (15-37); SGPT/ALT 23 U/L (12-78); TOT PROT 5.3 g/dl (6.4-8.2)
[2016-05-16] MEDS: LEVOTHYROXINE NA 88 MCG TABLET (FP) PO SCH (06:39)
[2016-05-16] MEDS: ALBUTEROL SO4 2.5/IPRATROPIUM 0.5 INH SOL 3 ML VIAL.NEB. NEB SCH ×4 (06:47→23:06)
[2016-05-16] MEDS: DOPAMINE 400 MG/D5W - 250 ML IVPB SCH (07:07)
[2016-05-16] MEDS ORDERED: FUROSEMIDE 40 MG/4 ML INJECTABLE VIAL IVPUSH ONE ×2 (08:24→15:12)
[2016-05-16] MEDS: HYDROCORTISONE SOD SUCCINATE 100 MG/2 ML VIAL IVPB SCH (08:28)
--- NOTE | 2016-05-16 08:29 | PN ---
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 (short form) - Note 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: PULM/CRITICAL CARE MEDICINE PROGRESS NOTE: Pt seen and examined in ICU Events: hemodynamically stable, oxygenating well, afebrile, GNRs in sputum and urine, net positive fluid balance Current Medications Acetaminophen (Tylenol -) 650 mg PO Q6H PRN PRN Reason: FEVER OR PAIN Last Admin: 05/14/16 21:11 Dose: 650 mg Albuterol Sulfate (Ventolin 0.083% Nebulizer Soln -) 1 amp NEB Q4H PRN PRN Reason: SHORT OF BREATH/WHEEZING Albuterol/Ipratropium (Duoneb -) 1 amp NEB QIDR [facility] Last Admin: 05/16/16 06:47 Dose: 1 amp Amino Acids (Prosource No Carb Liquid Pkt) 30 ml NGT DAILY [facility] Last Admin: 05/15/16 09:34 Dose: 30 ml Enoxaparin Sodium (Lovenox -) 40 mg SQ DAILY [facility] Last Admin: 05/15/16 09:35 Dose: 40 mg Furosemide (Lasix Injection -) 20 mg IVPUSH ONCE ONE Stop: 05/16/16 08:25 Hydrocortisone Sodium Succinate (Solu-Cortef -) 20 mg IVPB DAILY@0800 CATHERINE Pantoprazole Sodium (Protonix 40mg Ivpb (Pre-Docked)) 100 mls @ 200 mls/hr IVPB BID [facility] Last Admin: 05/15/16 22:20 Dose: 200 mls/hr Vancomycin HCl (Vancomycin (Pre-Docked)) 250 mls @ 166.667 mls/hr IVPB BID@0300 ,1500 CATHERINE PRN Reason: Protocol Last Admin: 05/16/16 02:13 Dose: 166.667 mls/hr Piperacillin Sod/Tazobactam Sod (Zosyn 4.5gm Ivpb (Pre-Docked)) 100 mls @ 200 mls/hr IVPB Q8H-IV CATHERINE PRN Reason: Protocol Last Admin: 05/16/16 01:52 Dose: 200 mls/hr Lactulose (Cephulac (Oral Use)) 20 gm PO HS PRN PRN Reason: CONSTIPATION Levothyroxine Sodium (Synthroid -) 88 mcg PO DAILY@0700 [facility] Last Admin: 05/16/16 06:39 Dose: 88 mcg Lidocaine HCl (Xylocaine 5% Top. Ointment) 1 applic TP DAILY [facility] Last Admin: 05/15/16 15:02 Dose: 1 applic Mirtazapine (Remeron -) 7.5 mg PO HS [facility] Last Admin: 05/15/16 22:21 Dose: 7.5 mg Mupirocin (Bactroban 2% Ointment -) 1 applic TP BID [facility] Last Admin: 05/15/16 22:22 Dose: 1 applic Sodium Chloride (Normal Saline -) 720 ml IV Q20M PRN PRN Reason: MAP<65mm Hg OR SBP <90 Vital Signs Temp 99.2 F 05/16/16 06:00 Pulse 66 05/16/16 06:00 Resp 14 05/16/16 06:46 BP 131/62 05/16/16 06:00 Pulse Ox 96 05/15/16 21:00 Intake & Output 05/15/16 05/16/16 05/16/16 18:59 06:59 18:59 Intake Total 1050 1288 Output Total 400 1325 Balance 650 -37 Weight 71.9 kg Intake: IV 600 Normal Saline - 1,000 ml 600 @ 100 mls/hr IV ASDIR [facility] Rx#:[id number] IVPB 450 450 Tube Feeding 498 Tube Irrigant 340 Output: Urine 400 1325 Raza 400 1325 Other: Voiding Method Indwelling Catheter Indwelling Catheter Weight Measurement Method Built in [facility] EXAM: Neuro: awake, alert, answers questions HENNT: PERRL, NGT and trach in situ Lungs: diminished, bibasular crackles Abd: obese, soft Ext: warm, edema Skin: warm, dry CBC, BMP 05/16/16 05:20 05/16/16 05:20 CXR: worsening b/l pleural effusions, LLL infiltrate ASSESSMENT AND PLAN: UTI VAP Sacral Decubitus Ulcer Septic Shock resolved Altered Mental Status from above improving Multiple Sclerosis Hypothyroidism Adrenal Insufficiency - ABX per ID - f/u cultures - Diuresis - needs volume off - Taper hydrocortisone - Does well on PSV --> TC trials as able - was on nocturnal vent support at night and TC during the day with passy-tenzin valve and PO diet - inhaled bronchodilators - O2 to keep SpO2 >90% - DVT/GI prophylaxis - continue ICU monitoring Bryon Fonseca Pulm/Critical Care [employer] CCTime 35"
--- NOTE | 2016-05-16 08:46 | PN ---
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 (short form) - Note 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: opens eyes trach to vent awake Vital Signs Period Temp Pulse Resp BP Sys/Morillo Pulse Ox Last 24 Hr 98.2 F-99.2 F 66-89 13-27 109-161/48-95 96-97 trach to vent cor-rrr lungs decreased bs at bases abd soft,nt ext trace edema perera CBC, BMP 05/16/16 05:20 05/16/16 05:20 Microbiology 05/13/16 01:40 Blood Culture - Preliminary Blood - Peripheral Venous NO GROWTH OBTAINED AFTER 72 HOURS, INCUBATION TO CONTINUE FOR 2 DAYS. 05/13/16 01:40 Blood Culture - Preliminary Blood - Peripheral Venous NO GROWTH OBTAINED AFTER 72 HOURS, INCUBATION TO CONTINUE FOR 2 DAYS. 05/13/16 01:40 Urine Culture - Preliminary Urine - Urine Perera Lactose Fermenting Neg Bacilli 05/14/16 07:00 Gram Stain - Final Sputum - Endotrachea Suction/Ventilator Sputum Culture - Preliminary Non Lactose Fermenting Gnb cxray bilateral effusions Current Medications Acetaminophen (Tylenol -) 650 mg PO Q6H PRN PRN Reason: FEVER OR PAIN Last Admin: 05/14/16 21:11 Dose: 650 mg Albuterol Sulfate (Ventolin 0.083% Nebulizer Soln -) 1 amp NEB Q4H PRN PRN Reason: SHORT OF BREATH/WHEEZING Albuterol/Ipratropium (Duoneb -) 1 amp NEB QIDR [facility] Last Admin: 05/16/16 06:47 Dose: 1 amp Amino Acids (Prosource No Carb Liquid Pkt) 30 ml NGT DAILY [facility] Last Admin: 05/15/16 09:34 Dose: 30 ml Enoxaparin Sodium (Lovenox -) 40 mg SQ DAILY [facility] Last Admin: 05/15/16 09:35 Dose: 40 mg Furosemide (Lasix Injection -) 20 mg IVPUSH ONCE ONE Stop: 05/16/16 08:25 Hydrocortisone Sodium Succinate (Solu-Cortef -) 20 mg IVPB DAILY@0800 [facility] Last Admin: 05/16/16 08:28 Dose: 20 mg Pantoprazole Sodium (Protonix 40mg Ivpb (Pre-Docked)) 100 mls @ 200 mls/hr IVPB BID [facility] Last Admin: 05/15/16 22:20 Dose: 200 mls/hr Vancomycin HCl (Vancomycin (Pre-Docked)) 250 mls @ 166.667 mls/hr IVPB BID@0300 ,1500 [facility] PRN Reason: Protocol Last Admin: 05/16/16 02:13 Dose: 166.667 mls/hr Piperacillin Sod/Tazobactam Sod (Zosyn 4.5gm Ivpb (Pre-Docked)) 100 mls @ 200 mls/hr IVPB Q8H-IV [facility] PRN Reason: Protocol Last Admin: 05/16/16 01:52 Dose: 200 mls/hr Lactulose (Cephulac (Oral Use)) 20 gm PO HS PRN PRN Reason: CONSTIPATION Levothyroxine Sodium (Synthroid -) 88 mcg PO DAILY@0700 [facility] Last Admin: 05/16/16 06:39 Dose: 88 mcg Lidocaine HCl (Xylocaine 5% Top. Ointment) 1 applic TP DAILY [facility] Last Admin: 05/15/16 15:02 Dose: 1 applic Mirtazapine (Remeron -) 7.5 mg PO HS [facility] Last Admin: 05/15/16 22:21 Dose: 7.5 mg Mupirocin (Bactroban 2% Ointment -) 1 applic TP BID [facility] Last Admin: 05/15/16 22:22 Dose: 1 applic Sodium Chloride (Normal Saline -) 720 ml IV Q20M PRN PRN Reason: MAP<65mm Hg OR SBP <90 a/p respiratory failure antibiotics resumed 05/14 for fever, hypotension ?possible aspiration history of resistant organisms MS fever and leukocytosis are resolved off pressors clinically improved d/c vancomycin, no MRSA d/w mother at bedside seen in ICU
[2016-05-16] MEDS: PANTOPRAZOLE SODIUM 100 ML IVPB SCH ×2 (09:10→21:08)
[2016-05-16] MEDS: AMINO ACIDS/PROTEIN HYDROLYS 30 ML LIQUID.PKT NGT SCH (09:11)
[2016-05-16] MEDS: ENOXAPARIN NA (PORCINE) 40 MG/0.4 ML DISP.SYRIN SQ SCH (09:16)
--- NOTE | 2016-05-16 10:05 | PN ---
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, Physician Chief Complaint: Patient seen in the ICU. Comfortable. less responsive thn before. Remains vent supported Mother and aide by her side. Maintains good urine output. Awake, alert Tube feeding well tolerated History of Present Illness: 51 y/o female with MS, Ch. Respiratory insufficienct, S/p Tracheostomy, using Trache collar at home, Has acute respiratory failure and sepsis. Has multiple electrolyte disorders that are being corrected. tube feeing well tolerated. - Current Medication List Current Medications: Active Medications Acetaminophen (Tylenol -) 650 mg PO Q6H PRN PRN Reason: FEVER OR PAIN Last Admin: 05/14/16 21:11 Dose: 650 mg Albuterol Sulfate (Ventolin 0.083% Nebulizer Soln -) 1 amp NEB Q4H PRN PRN Reason: SHORT OF BREATH/WHEEZING Albuterol/Ipratropium (Duoneb -) 1 amp NEB QIDR [facility] Last Admin: 05/16/16 06:47 Dose: 1 amp Amino Acids (Prosource No Carb Liquid Pkt) 30 ml NGT DAILY [facility] Last Admin: 05/16/16 09:11 Dose: 30 ml Enoxaparin Sodium (Lovenox -) 40 mg SQ DAILY [facility] Last Admin: 05/16/16 09:16 Dose: 40 mg Hydrocortisone Sodium Succinate (Solu-Cortef -) 20 mg IVPB DAILY@0800 [facility] Last Admin: 05/16/16 08:28 Dose: 20 mg Pantoprazole Sodium (Protonix 40mg Ivpb (Pre-Docked)) 100 mls @ 200 mls/hr IVPB BID [facility] Last Admin: 05/16/16 09:10 Dose: 200 mls/hr Piperacillin Sod/Tazobactam Sod (Zosyn 4.5gm Ivpb (Pre-Docked)) 100 mls @ 200 mls/hr IVPB Q8H-IV [facility] PRN Reason: Protocol Last Admin: 05/16/16 09:10 Dose: 200 mls/hr Lactulose (Cephulac (Oral Use)) 20 gm PO HS PRN PRN Reason: CONSTIPATION Levothyroxine Sodium (Synthroid -) 88 mcg PO DAILY@0700 [facility] Last Admin: 05/16/16 06:39 Dose: 88 mcg Lidocaine HCl (Xylocaine 5% Top. Ointment) 1 applic TP DAILY [facility] Last Admin: 05/15/16 15:02 Dose: 1 applic Mirtazapine (Remeron -) 7.5 mg PO HS [facility] Last Admin: 05/15/16 22:21 Dose: 7.5 mg Mupirocin (Bactroban 2% Ointment -) 1 applic TP BID [facility] Last Admin: 05/15/16 22:22 Dose: 1 applic Sodium Chloride (Normal Saline -) 720 ml IV Q20M PRN PRN Reason: MAP<65mm Hg OR SBP <90 - Objective Vital Signs: Vital Signs Temperature 99.2 F 05/16/16 06:00 Pulse Rate 66 05/16/16 08:00 Respiratory Rate 15 05/16/16 08:00 Blood Pressure 91/49 05/16/16 08:00 O2 Sat by Pulse Oximetry (%) 96 05/15/16 21:00 Constitutional: Yes: Calm Eyes: Yes: WNL HENT: Yes: Atraumatic Neck: Yes: Other (Tracheostomy, On vent support) Cardiovascular: Yes: Regular Rate and Rhythm, S2 Respiratory: Yes: Regular, Diminished, Mechanically Ventilated, Poor Air Entry Gastrointestinal: Yes: Normal Bowel Sounds, Soft Edema: No Neurological: Yes: Alert, Oriented Psychiatric: Yes: Alert, Oriented Labs: CBC, BMP 05/16/16 05:20 05/16/16 05:20 INR, PTT INR 1.19 (0.82-1.09) H 05/14/16 00:40 Problem List - Problems (1) Altered mental status Code(s): R41.82 - ALTERED MENTAL STATUS, UNSPECIFIED Qualifiers: Qualified Code(s): R40.4 - Transient alteration of awareness (2) Hyponatremia Code(s): E87.1 - HYPO-OSMOLALITY AND HYPONATREMIA (3) Hypothermia Code(s): T68.XXXA - HYPOTHERMIA, INITIAL ENCOUNTER Qualifiers: Qualified Code(s): T68.XXXA - Hypothermia, initial encounter (4) Multiple sclerosis Code(s): G35 - MULTIPLE SCLEROSIS (5) Respiratory failure Code(s): J96.90 - RESPIRATORY FAILURE, UNSP, UNSP W HYPOXIA OR HYPERCAPNIA (6) Sepsis syndrome Code(s): [id number] - (7) Acute on chronic respiratory failure with hypoxia and hypercapnia Code(s): J96.21 - ACUTE AND CHRONIC RESPIRATORY FAILURE WITH HYPOXIA J96.22 - ACUTE AND CHRONIC RESPIRATORY FAILURE WITH HYPERCAPNIA (8) Adrenal insufficiency Code(s): E27.40 - UNSPECIFIED ADRENOCORTICAL INSUFFICIENCY (9) Chronic respiratory failure Code(s): J96.10 - CHRONIC RESPIRATORY FAILURE, UNSP W HYPOXIA OR HYPERCAPNIA (10) Congestion of upper airway Code(s): J98.8 - OTHER SPECIFIED RESPIRATORY DISORDERS (11) Functional quadriplegia Code(s): R53.2 - FUNCTIONAL QUADRIPLEGIA (12) HTN (hypertension) Code(s): I10 - ESSENTIAL (PRIMARY) HYPERTENSION (13) Hypophonia Code(s): R49.8 - OTHER VOICE AND RESONANCE DISORDERS Assessment/Plan 51 y/o female with multiple sclerosis, quadruplegic, Chronic respirtory failure. The urine output is acceptable. Serum electrolytes in better range Nutritionally challenged.( Albumin 2.0). Tube feeding to continue. Will monitor the renal functions with you. Thanks, Zuleika Pereyra MD
[2016-05-16] MEDS: MUPIROCIN 2% TOPICAL OINTMENT 22 GM TUBE TP SCH ×2 (11:00→21:18)
[2016-05-16] MEDS ORDERED: POTASSIUM PHOSPHATE 15 MM in DEXTROSE 5%-WATER - 250 ML IVPB ONE (11:00)
[2016-05-16] MEDS: LIDOCAINE HCL 5% TOP OINTMENT 50 GM TUBE TP SCH (12:00)
--- NOTE | 2016-05-16 12:24 | PN ---
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, Physician Chief Complaint: awake with surgical services coordinator - Current Medication List Current Medications: Active Medications Acetaminophen (Tylenol -) 650 mg PO Q6H PRN PRN Reason: FEVER OR PAIN Last Admin: 05/14/16 21:11 Dose: 650 mg Albuterol Sulfate (Ventolin 0.083% Nebulizer Soln -) 1 amp NEB Q4H PRN PRN Reason: SHORT OF BREATH/WHEEZING Albuterol/Ipratropium (Duoneb -) 1 amp NEB QIDR [facility] Last Admin: 05/16/16 12:15 Dose: 1 amp Amino Acids (Prosource No Carb Liquid Pkt) 30 ml NGT DAILY [facility] Last Admin: 05/16/16 09:11 Dose: 30 ml Enoxaparin Sodium (Lovenox -) 40 mg SQ DAILY [facility] Last Admin: 05/16/16 09:16 Dose: 40 mg Hydrocortisone Sodium Succinate (Solu-Cortef -) 20 mg IVPB DAILY@0800 [facility] Last Admin: 05/16/16 08:28 Dose: 20 mg Pantoprazole Sodium (Protonix 40mg Ivpb (Pre-Docked)) 100 mls @ 200 mls/hr IVPB BID [facility] Last Admin: 05/16/16 09:10 Dose: 200 mls/hr Piperacillin Sod/Tazobactam Sod (Zosyn 4.5gm Ivpb (Pre-Docked)) 100 mls @ 200 mls/hr IVPB Q8H-IV [facility] PRN Reason: Protocol Last Admin: 05/16/16 09:10 Dose: 200 mls/hr Potassium Phosphate 15 mm/ (Dextrose) 255 mls @ 62.5 mls/hr IVPB ONCE ONE Stop: 05/16/16 15:04 Lactulose (Cephulac (Oral Use)) 20 gm PO HS PRN PRN Reason: CONSTIPATION Levothyroxine Sodium (Synthroid -) 88 mcg PO DAILY@0700 [facility] Last Admin: 05/16/16 06:39 Dose: 88 mcg Lidocaine HCl (Xylocaine 5% Top. Ointment) 1 applic TP DAILY [facility] Last Admin: 05/15/16 15:02 Dose: 1 applic Mirtazapine (Remeron -) 7.5 mg PO HS [facility] Last Admin: 05/15/16 22:21 Dose: 7.5 mg Mupirocin (Bactroban 2% Ointment -) 1 applic TP BID [facility] Last Admin: 05/15/16 22:22 Dose: 1 applic Sodium Chloride (Normal Saline -) 720 ml IV Q20M PRN PRN Reason: MAP<65mm Hg OR SBP <90 - Objective Vital Signs: Vital Signs Temperature 99.7 F H 05/16/16 10:00 Pulse Rate 65 05/16/16 10:00 Respiratory Rate 14 05/16/16 12:15 Blood Pressure 97/59 05/16/16 10:00 O2 Sat by Pulse Oximetry (%) 100 05/16/16 10:00 Cardiovascular: Yes: WNL Respiratory: Yes: WNL Gastrointestinal: Yes: WNL Edema: No Labs: CBC, BMP 05/16/16 05:20 05/16/16 05:20 INR, PTT INR 1.19 (0.82-1.09) H 05/14/16 00:40 Assessment/Plan (1) Sepsis Assessment/Plan: Code(s): A41.9 - SEPSIS, UNSPECIFIED ORGANISM Qualifiers: Qualified Code(s): A41.9 - Sepsis, unspecified organism (2) Altered mental status Assessment/Plan: Code(s): R41.82 - ALTERED MENTAL STATUS, UNSPECIFIED Qualifiers: Qualified Code(s): R40.4 - Transient alteration of awareness (3) Hyponatremia Assessment/Plan: Code(s): E87.1 - HYPO-OSMOLALITY AND HYPONATREMIA (4) Multiple sclerosis Assessment/Plan: Code(s): G35 - MULTIPLE SCLEROSIS (5) Adrenal insufficiency Assessment/Plan: Code(s): E27.40 - UNSPECIFIED ADRENOCORTICAL INSUFFICIENCY (6) Anemia Assessment/Plan: Code(s): D64.9 - ANEMIA, UNSPECIFIED Qualifiers: Qualified Code(s): D63.8 - Anemia in other chronic diseases classified elsewhere (7) Pneumonia Assessment/Plan: Code(s): J18.9 - PNEUMONIA, UNSPECIFIED ORGANISM (8) Presence of intrathecal baclofen pump Assessment/Plan: Code(s): Z98.89 - OTHER SPECIFIED POSTPROCEDURAL STATES * DO NOT USE * chronic resp failure sec to MS s/p trach on vent quadreplegic sacral wounds frequent turn postion nutrition sepsis. s/p septic shock off pressors on hydrocortisone iv abx NG tube for feeds till patient condition improves hypothyroid on synthroid gi dvt ppx icu monitirng anemia: check gi/dvtppx [facility] [employer] FM
[2016-05-16] MEDS ORDERED: FUROSEMIDE 40 MG/4 ML INJECTABLE VIAL ONE (15:52)
[2016-05-16] MEDS: ACETAMINOPHEN 325 MG TABLET (FP) PO PRN (21:07)
[2016-05-16] MEDS: MIRTAZAPINE 15 MG TABLET (FP) PO SCH (21:09)
[2016-05-17] MEDS: PIPERACILLIN/TAZOB 4.5 GM 100 ML IVPB SCH ×3 (04:14→18:41)
[2016-05-17] MEDS: ACETAMINOPHEN 325 MG TABLET (FP) PO PRN ×2 (04:15→22:10)
[2016-05-17] MEDS: ALBUTEROL SO4 2.5/IPRATROPIUM 0.5 INH SOL 3 ML VIAL.NEB. NEB SCH ×4 (05:29→23:55)
[2016-05-17 06:21] LABS: ALBUMIN 2.1 g/dl (3.4-5.0); ANION GAP 3 (8-16); BILIRUBIN,TOTAL 0.5 mg/dL (0.2-1.0); CALCIUM 8.2 mg/dL (8.5-10.1); CO2 35 mmol/L (21-32); CREATININE 0.5 mg/dL (0.55-1.02); GLUCOSE,RANDOM 148 mg/dL (74-106); MAGNESIUM 1.9 mg/dL (1.8-2.4); PHOSPHOROUS 2.7 mg/dL (2.5-4.9); SGOT/AST 11 U/L (15-37); SGPT/ALT 23 U/L (12-78); TOT PROT 5.7 g/dl (6.4-8.2)
[2016-05-17 06:23] LABS: ALK PHOS 125 U/L (45-117)
[2016-05-17] MEDS: LEVOTHYROXINE NA 88 MCG TABLET (FP) PO SCH (06:33)
[2016-05-17 06:37] LABS: SERUM IRON 19 ug/dL (27-159); TOTAL IRON BINDING CAPACITY 119 ug/dL (250-450); UIBC 100 ug/dL (131-425)
--- NOTE | 2016-05-17 08:07 | PN ---
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 (short form) - Note 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: PULM/CRITICAL CARE MEDICINE PROGRESS NOTE: Pt seen and examined in ICU Events: MDR Acinetobacter Baumannii/Haemol in Urine, I to sulbactam but pt afebrile -PS trial on going -in for floor bed -good UOP Active Medications Acetaminophen (Tylenol -) 650 mg PO Q6H PRN PRN Reason: FEVER OR PAIN Last Admin: 05/17/16 04:15 Dose: 650 mg Albuterol Sulfate (Ventolin 0.083% Nebulizer Soln -) 1 amp NEB Q4H PRN PRN Reason: SHORT OF BREATH/WHEEZING Albuterol/Ipratropium (Duoneb -) 1 amp NEB QIDR [facility] Last Admin: 05/17/16 05:29 Dose: 1 amp Amino Acids (Prosource No Carb Liquid Pkt) 30 ml NGT DAILY [facility] Last Admin: 05/16/16 09:11 Dose: 30 ml Enoxaparin Sodium (Lovenox -) 40 mg SQ DAILY [facility] Last Admin: 05/16/16 09:16 Dose: 40 mg Hydrocortisone Sodium Succinate (Solu-Cortef -) 20 mg IVPB DAILY@0800 [facility] Last Admin: 05/16/16 08:28 Dose: 20 mg Pantoprazole Sodium (Protonix 40mg Ivpb (Pre-Docked)) 100 mls @ 200 mls/hr IVPB BID [facility] Last Admin: 05/16/16 21:08 Dose: 200 mls/hr Piperacillin Sod/Tazobactam Sod (Zosyn 4.5gm Ivpb (Pre-Docked)) 100 mls @ 200 mls/hr IVPB Q8H-IV [facility] PRN Reason: Protocol Last Admin: 05/17/16 04:14 Dose: 200 mls/hr Lactulose (Cephulac (Oral Use)) 20 gm PO HS PRN PRN Reason: CONSTIPATION Levothyroxine Sodium (Synthroid -) 88 mcg PO DAILY@0700 [facility] Last Admin: 05/17/16 06:33 Dose: 88 mcg Lidocaine HCl (Xylocaine 5% Top. Ointment) 1 applic TP DAILY [facility] Last Admin: 05/16/16 12:00 Dose: 1 applic Mirtazapine (Remeron -) 7.5 mg PO HS [facility] Last Admin: 05/16/16 21:09 Dose: 7.5 mg Mupirocin (Bactroban 2% Ointment -) 1 applic TP BID [facility] Last Admin: 05/16/16 21:18 Dose: 1 applic Sodium Chloride (Normal Saline -) 720 ml IV Q20M PRN PRN Reason: MAP<65mm Hg OR SBP <90 Microbiology 05/13/16 01:40 Blood - Peripheral Venous Blood Culture - Preliminary NO GROWTH OBTAINED AFTER 96 HOURS, INCUBATION TO CONTINUE FOR 1 DAYS. 05/13/16 01:40 Blood - Peripheral Venous Blood Culture - Preliminary NO GROWTH OBTAINED AFTER 96 HOURS, INCUBATION TO CONTINUE FOR 1 DAYS. 05/13/16 01:40 Urine - Urine Raza Urine Culture - Final Acinetobacter Baumannii/Haemol 05/14/16 07:00 Sputum - Endotrachea Suction/Ventilator Gram Stain - Final 05/14/16 07:00 Sputum - Endotrachea Suction/Ventilator Sputum Culture - Preliminary Non Lactose Fermenting Gnb 05/09/16 11:23 Blood - Peripheral Venous Blood Culture - Final NO GROWTH AFTER 5 DAYS INCUBATION 05/09/16 11:35 Blood - Peripheral Venous Blood Culture - Final NO GROWTH AFTER 5 DAYS INCUBATION 05/05/16 02:00 Nasopharyngeal Swab Respiratory Virus Panel - Final 05/04/16 13:15 Blood - Peripheral Venous Blood Culture - Final NO GROWTH AFTER 5 DAYS INCUBATION 05/04/16 13:20 Blood - Peripheral Venous Blood Culture - Final NO GROWTH AFTER 5 DAYS INCUBATION 05/06/16 13:50 Sputum - Endotrachea Suction/Ventilator Gram Stain - Final 05/06/16 13:50 Sputum - Endotrachea Suction/Ventilator Sputum Culture - Final Yeast Like Organism 05/05/16 16:00 Urine - Urine - Catheterized Urine Culture - Final NO GROWTH OBTAINED 05/05/16 02:00 Urine For Antigen Detection Legionella Antigen - Final 05/05/16 02:00 Urine For Antigen Detection Streptococcus pneumoniae Antigen (M - Final 05/04/16 13:52 Urine - Urine - Catheterized Urine Culture - Final Contaminated: Please Repeat 05/05/16 02:00 Nasopharyngeal Swab Influenza Types A,B Antigen (DARON) - Final 05/05/16 02:00 Nasopharyngeal Swab - Final Vital Signs Temp 98.8 F 05/17/16 04:00 Pulse 62 05/17/16 04:00 Resp 18 05/17/16 07:36 BP 115/49 05/17/16 04:00 Pulse Ox 96 05/16/16 22:14 Intake & Output 05/16/16 05/16/16 05/17/16 11:59 23:59 12:59 Intake Total 2193 964 970 Output Total 800 1000 1100 Balance 1393 -36 -130 Weight 71.9 kg Intake: IV 605 Normal Saline - 1,000 ml 600 @ 100 mls/hr IV ASDIR [facility]ATHERINE Rx#:[id number] RUE midline #20 05/09/16 s/ 5 l IVPB 650 100 100 Tube Feeding 498 744 750 Tube Irrigant 440 120 120 Output: Urine 800 1000 1100 Raza 800 1000 1100 Other: Voiding Method Indwelling Catheter Indwelling Catheter Bowel Movement No No # Bowel Movements 2 Weight Measurement Method Built in Bedscale Built in Bedspremier health EXAM: Neuro: awake, alert, answers questions HENNT: PERRL, NGT and trach in situ Lungs: diminished, bibasular crackles Abd: obese, soft Ext: warm, edema Skin: warm, dry CBC, BMP 05/16/16 05:20 05/17/16 05:20 CXR: no cxr today ASSESSMENT AND PLAN: UTI VAP Sacral Decubitus Ulcer Septic Shock resolved Altered Mental Status from above improving Multiple Sclerosis Hypothyroidism Adrenal Insufficiency - ABX per ID , Cont P/T - f/u cultures - can start Diuresis - Taper hydrocortisone - Does well on PSV --> TC trials as able - was on nocturnal vent support at night and TC during the day with passy-tenzin valve and PO diet - inhaled bronchodilators - O2 to keep SpO2 >90% - DVT/GI prophylaxis - ok for vent floor Jovan Hutchins ACNP Pulm/Critical Care [id number]
[2016-05-17] MEDS: HYDROCORTISONE SOD SUCCINATE 100 MG/2 ML VIAL IVPB SCH (08:30)
[2016-05-17] MEDS: MUPIROCIN 2% TOPICAL OINTMENT 22 GM TUBE TP SCH ×2 (10:07→23:00)
[2016-05-17] MEDS: ENOXAPARIN NA (PORCINE) 40 MG/0.4 ML DISP.SYRIN SQ SCH (10:07)
[2016-05-17] MEDS: AMINO ACIDS/PROTEIN HYDROLYS 30 ML LIQUID.PKT NGT SCH (10:08)
[2016-05-17 10:09] LABS: BASOPHIL 0.5 % (0-2.0); EOSINOPHIL 2.8 % (0-4.5); MCH 30.3 pg (25.7-33.7); MCHC 32.7 g/dl (32.0-36.0); MEAN CELL VOLUME 92.8 fl (80-96); NEUTROPHILS 69.1 % (42.8-82.8); PLATELET COUNT 456 K/MM3 (134-434); RDW 17.5 % (11.6-15.6); WHITE BLOOD COUNT 6.5 K/mm3 (4.0-10.0)
[2016-05-17] MEDS: PANTOPRAZOLE SODIUM 100 ML IVPB SCH ×2 (10:09→22:06)
[2016-05-17] MEDS: LIDOCAINE HCL 5% TOP OINTMENT 50 GM TUBE TP SCH (10:09)
--- NOTE | 2016-05-17 11:19 | PN ---
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 (short form) - Note 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: opens eyes trach to vent awake NAD Vital Signs Period Temp Pulse Resp BP Sys/Morillo Pulse Ox Last 24 Hr 98.6 F-99.7 F 61-96 14-25 110-147/49-74 96-98 cor-rrr lungs decreased bs at bases abd-soft,nt ext no edema +NGT +perera CBC, BMP 05/17/16 09:55 05/17/16 05:20 Microbiology 05/13/16 01:40 Blood - Peripheral Venous Blood Culture - Preliminary NO GROWTH OBTAINED AFTER 96 HOURS, INCUBATION TO CONTINUE FOR 1 DAYS. 05/13/16 01:40 Blood - Peripheral Venous Blood Culture - Preliminary NO GROWTH OBTAINED AFTER 96 HOURS, INCUBATION TO CONTINUE FOR 1 DAYS. 05/13/16 01:40 Urine - Urine Perera Urine Culture - Final Acinetobacter Baumannii/Haemol a/p respiratory failure antibiotics resumed 05/14 for fever, hypotension ?possible aspiration history of resistant organisms-urine culture with low colony count acinetobacter - suspect colonization as she is afebrile and clinically improved without treating the acinetobacter MS d/w mother at bedside seen in ICU strict contact isolation
--- NOTE | 2016-05-17 13:31 | PN ---
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, Physician Chief Complaint: Patient seen in the ICU. Comfortable. On vent support. Maintains good urine output. Awake, alert Tube feeding well tolerated - Current Medication List Current Medications: Active Medications Acetaminophen (Tylenol -) 650 mg PO Q6H PRN PRN Reason: FEVER OR PAIN Last Admin: 05/17/16 04:15 Dose: 650 mg Albuterol Sulfate (Ventolin 0.083% Nebulizer Soln -) 1 amp NEB Q4H PRN PRN Reason: SHORT OF BREATH/WHEEZING Albuterol/Ipratropium (Duoneb -) 1 amp NEB QIDR [facility] Last Admin: 05/17/16 12:12 Dose: 1 amp Amino Acids (Prosource No Carb Liquid Pkt) 30 ml NGT DAILY [facility] Last Admin: 05/17/16 10:08 Dose: 30 ml Enoxaparin Sodium (Lovenox -) 40 mg SQ DAILY [facility] Last Admin: 05/17/16 10:07 Dose: 40 mg Hydrocortisone Sodium Succinate (Solu-Cortef -) 20 mg IVPB DAILY@0800 [facility] Last Admin: 05/17/16 08:30 Dose: 20 mg Pantoprazole Sodium (Protonix 40mg Ivpb (Pre-Docked)) 100 mls @ 200 mls/hr IVPB BID [facility] Last Admin: 05/17/16 10:09 Dose: 200 mls/hr Piperacillin Sod/Tazobactam Sod (Zosyn 4.5gm Ivpb (Pre-Docked)) 100 mls @ 200 mls/hr IVPB Q8H-IV [facility] PRN Reason: Protocol Last Admin: 05/17/16 10:10 Dose: 200 mls/hr Lactulose (Cephulac (Oral Use)) 20 gm PO HS PRN PRN Reason: CONSTIPATION Levothyroxine Sodium (Synthroid -) 88 mcg PO DAILY@0700 [facility] Last Admin: 05/17/16 06:33 Dose: 88 mcg Lidocaine HCl (Xylocaine 5% Top. Ointment) 1 applic TP DAILY [facility] Last Admin: 05/17/16 10:09 Dose: 1 applic Mirtazapine (Remeron -) 7.5 mg PO HS [facility] Last Admin: 05/16/16 21:09 Dose: 7.5 mg Mupirocin (Bactroban 2% Ointment -) 1 applic TP BID [facility] Last Admin: 05/17/16 10:07 Dose: 1 applic Sodium Chloride (Normal Saline -) 720 ml IV Q20M PRN PRN Reason: MAP<65mm Hg OR SBP <90 - Objective Vital Signs: Vital Signs Temperature 98.8 F 05/17/16 04:00 Pulse Rate 82 05/17/16 10:09 Respiratory Rate 18 05/17/16 12:10 Blood Pressure 115/49 05/17/16 04:00 O2 Sat by Pulse Oximetry (%) 98 05/17/16 10:10 Constitutional: Yes: No Distress, Calm Eyes: Yes: Conjunctiva Clear HENT: Yes: Atraumatic Neck: Yes: Other (Tracheostomy) Cardiovascular: Yes: Regular Rate and Rhythm, S1, S2 Respiratory: Yes: Mechanically Ventilated Gastrointestinal: Yes: Soft Neurological: Yes: Alert, Oriented Psychiatric: Yes: Alert, Oriented Labs: CBC, BMP 05/17/16 09:55 05/17/16 05:20 INR, PTT INR 1.19 (0.82-1.09) H 05/14/16 00:40 Problem List - Problems (1) Altered mental status Code(s): R41.82 - ALTERED MENTAL STATUS, UNSPECIFIED Qualifiers: Qualified Code(s): R40.4 - Transient alteration of awareness (2) Hyponatremia Code(s): E87.1 - HYPO-OSMOLALITY AND HYPONATREMIA (3) Hypothermia Code(s): T68.XXXA - HYPOTHERMIA, INITIAL ENCOUNTER Qualifiers: Qualified Code(s): T68.XXXA - Hypothermia, initial encounter (4) Multiple sclerosis Code(s): G35 - MULTIPLE SCLEROSIS (5) Respiratory failure Code(s): J96.90 - RESPIRATORY FAILURE, UNSP, UNSP W HYPOXIA OR HYPERCAPNIA (6) Sepsis syndrome Code(s): [id number] - (7) Acute on chronic respiratory failure with hypoxia and hypercapnia Code(s): J96.21 - ACUTE AND CHRONIC RESPIRATORY FAILURE WITH HYPOXIA J96.22 - ACUTE AND CHRONIC RESPIRATORY FAILURE WITH HYPERCAPNIA (8) Adrenal insufficiency Code(s): E27.40 - UNSPECIFIED ADRENOCORTICAL INSUFFICIENCY (9) Chronic respiratory failure Code(s): J96.10 - CHRONIC RESPIRATORY FAILURE, UNSP W HYPOXIA OR HYPERCAPNIA (10) Congestion of upper airway Code(s): J98.8 - OTHER SPECIFIED RESPIRATORY DISORDERS (11) Functional quadriplegia Code(s): R53.2 - FUNCTIONAL QUADRIPLEGIA (12) HTN (hypertension) Code(s): I10 - ESSENTIAL (PRIMARY) HYPERTENSION (13) Hypophonia Code(s): R49.8 - OTHER VOICE AND RESONANCE DISORDERS Assessment/Plan 51 y/o female with multiple sclerosis, quadruplegic, Chronic respirtory failure. The urine output is acceptable. Serum electrolytes in better range Nutritionally challenged.( Albumin 2.1). Tube feeding well tolerated, to continue. Will monitor the renal functions with you. Thanks, Zuleika Pereyra MD
--- NOTE | 2016-05-17 15:20 | PN ---
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 patient has more energy - Current Medication List Current Medications: Active Medications Acetaminophen (Tylenol -) 650 mg PO Q6H PRN PRN Reason: FEVER OR PAIN Last Admin: 05/17/16 04:15 Dose: 650 mg Albuterol Sulfate (Ventolin 0.083% Nebulizer Soln -) 1 amp NEB Q4H PRN PRN Reason: SHORT OF BREATH/WHEEZING Albuterol/Ipratropium (Duoneb -) 1 amp NEB QIDR [facility] Last Admin: 05/17/16 12:12 Dose: 1 amp Amino Acids (Prosource No Carb Liquid Pkt) 30 ml NGT DAILY [facility] Last Admin: 05/17/16 10:08 Dose: 30 ml Enoxaparin Sodium (Lovenox -) 40 mg SQ DAILY [facility] Last Admin: 05/17/16 10:07 Dose: 40 mg Hydrocortisone Sodium Succinate (Solu-Cortef -) 20 mg IVPB DAILY@0800 [facility] Last Admin: 05/17/16 08:30 Dose: 20 mg Pantoprazole Sodium (Protonix 40mg Ivpb (Pre-Docked)) 100 mls @ 200 mls/hr IVPB BID [facility] Last Admin: 05/17/16 10:09 Dose: 200 mls/hr Piperacillin Sod/Tazobactam Sod (Zosyn 4.5gm Ivpb (Pre-Docked)) 100 mls @ 200 mls/hr IVPB Q8H-IV [facility] PRN Reason: Protocol Last Admin: 05/17/16 10:10 Dose: 200 mls/hr Lactulose (Cephulac (Oral Use)) 20 gm PO HS PRN PRN Reason: CONSTIPATION Levothyroxine Sodium (Synthroid -) 88 mcg PO DAILY@0700 [facility] Last Admin: 05/17/16 06:33 Dose: 88 mcg Lidocaine HCl (Xylocaine 5% Top. Ointment) 1 applic TP DAILY [facility] Last Admin: 05/17/16 10:09 Dose: 1 applic Mirtazapine (Remeron -) 7.5 mg PO HS [facility] Last Admin: 05/16/16 21:09 Dose: 7.5 mg Mupirocin (Bactroban 2% Ointment -) 1 applic TP BID [facility] Last Admin: 05/17/16 10:07 Dose: 1 applic Sodium Chloride (Normal Saline -) 720 ml IV Q20M PRN PRN Reason: MAP<65mm Hg OR SBP <90 - Objective Vital Signs: Vital Signs Temperature 98.8 F 05/17/16 04:00 Pulse Rate 82 05/17/16 10:09 Respiratory Rate 19 05/17/16 14:49 Blood Pressure 115/49 05/17/16 04:00 O2 Sat by Pulse Oximetry (%) 98 05/17/16 10:10 Constitutional: Yes: Calm Cardiovascular: Yes: WNL Respiratory: Yes: WNL Gastrointestinal: Yes: WNL Labs: CBC, BMP 05/17/16 09:55 05/17/16 05:20 INR, PTT INR 1.19 (0.82-1.09) H 05/14/16 00:40 Assessment/Plan (1) Sepsis Assessment/Plan: Code(s): A41.9 - SEPSIS, UNSPECIFIED ORGANISM Qualifiers: Qualified Code(s): A41.9 - Sepsis, unspecified organism (2) Altered mental status Assessment/Plan: Code(s): R41.82 - ALTERED MENTAL STATUS, UNSPECIFIED Qualifiers: Qualified Code(s): R40.4 - Transient alteration of awareness (3) Hyponatremia Assessment/Plan: Code(s): E87.1 - HYPO-OSMOLALITY AND HYPONATREMIA (4) Multiple sclerosis Assessment/Plan: Code(s): G35 - MULTIPLE SCLEROSIS (5) Adrenal insufficiency Assessment/Plan: Code(s): E27.40 - UNSPECIFIED ADRENOCORTICAL INSUFFICIENCY (6) Anemia Assessment/Plan: Code(s): D64.9 - ANEMIA, UNSPECIFIED Qualifiers: Qualified Code(s): D63.8 - Anemia in other chronic diseases classified elsewhere (7) Pneumonia Assessment/Plan: Code(s): J18.9 - PNEUMONIA, UNSPECIFIED ORGANISM (8) Presence of intrathecal baclofen pump Assessment/Plan: Code(s): Z98.89 - OTHER SPECIFIED POSTPROCEDURAL STATES * DO NOT USE * chronic resp failure sec to MS s/p trach on vent quadreplegic sacral wounds frequent turn postion nutrition sepsis. 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
[2016-05-17] MEDS: MIRTAZAPINE 15 MG TABLET (FP) PO SCH (22:06)
[2016-05-18] MEDS: PIPERACILLIN/TAZOB 4.5 GM 100 ML IVPB SCH ×3 (03:09→18:06)
[2016-05-18 05:53] LABS: ALBUMIN 2.2 g/dl (3.4-5.0); ALK PHOS 138 U/L (45-117); ANION GAP 6 (8-16); BILIRUBIN,TOTAL 0.4 mg/dL (0.2-1.0); CALCIUM 8.6 mg/dL (8.5-10.1); CO2 31 mmol/L (21-32); CREATININE 0.5 mg/dL (0.55-1.02); GLUCOSE,RANDOM 145 mg/dL (74-106); SGOT/AST 16 U/L (15-37); SGPT/ALT 27 U/L (12-78); TOT PROT 6.3 g/dl (6.4-8.2)
[2016-05-18 05:57] LABS: MCH 30.5 pg (25.7-33.7); MCHC 33.1 g/dl (32.0-36.0); MEAN CELL VOLUME 92.1 fl (80-96); NEUTROPHILS 63.2 % (42.8-82.8); PLATELET COUNT 535 K/MM3 (134-434)
[2016-05-18] MEDS: LEVOTHYROXINE NA 88 MCG TABLET (FP) PO SCH (06:38)
[2016-05-18] MEDS: HYDROCORTISONE SOD SUCCINATE 100 MG/2 ML VIAL IVPB SCH (08:50)
--- NOTE | 2016-05-18 08:55 | PN ---
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, Physician History of Present Illness: ON VENT - Current Medication List Current Medications: Active Medications Acetaminophen (Tylenol -) 650 mg PO Q6H PRN PRN Reason: FEVER OR PAIN Last Admin: 05/17/16 22:10 Dose: 650 mg Albuterol Sulfate (Ventolin 0.083% Nebulizer Soln -) 1 amp NEB Q4H PRN PRN Reason: SHORT OF BREATH/WHEEZING Amino Acids (Prosource No Carb Liquid Pkt) 30 ml NGT DAILY [facility] Last Admin: 05/17/16 10:08 Dose: 30 ml Enoxaparin Sodium (Lovenox -) 40 mg SQ DAILY [facility] Last Admin: 05/17/16 10:07 Dose: 40 mg Hydrocortisone Sodium Succinate (Solu-Cortef -) 20 mg IVPB DAILY@0800 [facility] Last Admin: 05/17/16 08:30 Dose: 20 mg Pantoprazole Sodium (Protonix 40mg Ivpb (Pre-Docked)) 100 mls @ 200 mls/hr IVPB BID [facility] Last Admin: 05/17/16 22:06 Dose: 200 mls/hr Piperacillin Sod/Tazobactam Sod (Zosyn 4.5gm Ivpb (Pre-Docked)) 100 mls @ 200 mls/hr IVPB Q8H-IV [facility] PRN Reason: Protocol Last Admin: 05/18/16 03:09 Dose: 200 mls/hr Lactulose (Cephulac (Oral Use)) 20 gm PO HS PRN PRN Reason: CONSTIPATION Levothyroxine Sodium (Synthroid -) 88 mcg PO DAILY@0700 [facility] Last Admin: 05/18/16 06:38 Dose: 88 mcg Lidocaine HCl (Xylocaine 5% Top. Ointment) 1 applic TP DAILY [facility] Last Admin: 05/17/16 10:09 Dose: 1 applic Mirtazapine (Remeron -) 7.5 mg PO HS [facility] Last Admin: 05/17/16 22:06 Dose: 7.5 mg Mupirocin (Bactroban 2% Ointment -) 1 applic TP BID [facility] Last Admin: 05/17/16 23:00 Dose: 1 applic Sodium Chloride (Normal Saline -) 720 ml IV Q20M PRN PRN Reason: MAP<65mm Hg OR SBP <90 - Objective Vital Signs: Vital Signs Temperature 97.6 F 05/18/16 06:00 Pulse Rate 73 05/18/16 06:00 Respiratory Rate 22 05/18/16 06:00 Blood Pressure 97/41 05/18/16 06:00 O2 Sat by Pulse Oximetry (%) 100 05/17/16 17:39 Cardiovascular: Yes: Regular Rate and Rhythm Respiratory: Yes: Mechanically Ventilated, Rhonchi Gastrointestinal: Yes: Soft Labs: CBC, BMP 05/18/16 05:00 05/18/16 05:00 INR, PTT INR 1.19 (0.82-1.09) H 05/14/16 00:40 Problem List - Problems (1) Sepsis Assessment/Plan: ON IV ABX RPT CULTURES NOTED ID CONSULT NOTED Code(s): A41.9 - SEPSIS, UNSPECIFIED ORGANISM Qualifiers: Qualified Code(s): A41.9 - Sepsis, unspecified organism (2) Altered mental status Assessment/Plan: IMPROVED AT BASELINE Code(s): R41.82 - ALTERED MENTAL STATUS, UNSPECIFIED Qualifiers: Qualified Code(s): R40.4 - Transient alteration of awareness (3) Hyponatremia Code(s): E87.1 - HYPO-OSMOLALITY AND HYPONATREMIA (4) Multiple sclerosis Assessment/Plan: NEURO ON CASE Code(s): G35 - MULTIPLE SCLEROSIS (5) Adrenal insufficiency Code(s): E27.40 - UNSPECIFIED ADRENOCORTICAL INSUFFICIENCY (6) Anemia Assessment/Plan: REPEAT PENDING S/P TRANSFUSION -HGB 10 Code(s): D64.9 - ANEMIA, UNSPECIFIED Qualifiers: Qualified Code(s): D63.8 - Anemia in other chronic diseases classified elsewhere (7) Pneumonia Assessment/Plan: ON IV ABX PER ID CXR NOTED- RPT CXR Code(s): J18.9 - PNEUMONIA, UNSPECIFIED ORGANISM (8) Presence of intrathecal baclofen pump Assessment/Plan: PER NEURO Code(s): Z98.89 - OTHER SPECIFIED POSTPROCEDURAL STATES * DO NOT USE *
--- NOTE | 2016-05-18 09:05 | PN ---
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 (short form) - Note 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: much more alert and responsive Vital Signs Period Temp Pulse Resp BP Sys/Morillo Pulse Ox Last 24 Hr 97.6 F-98.7 F 63-102 14-22 91-164/41-71 98-100 trach to vent cor-rrr llungs decreased bs at bases abd soft,nt ext trace edema CBC, BMP 05/18/16 05:00 05/18/16 05:00 Microbiology 05/13/16 01:40 Blood - Peripheral Venous Blood Culture - Final NO GROWTH AFTER 5 DAYS INCUBATION 05/13/16 01:40 Blood - Peripheral Venous Blood Culture - Final NO GROWTH AFTER 5 DAYS INCUBATION 05/14/16 07:00 Sputum - Endotrachea Suction/Ventilator Gram Stain - Final 05/14/16 07:00 Sputum - Endotrachea Suction/Ventilator Sputum Culture - Final Acinetobacter Baumannii/Haemol and normal alexandra a/p respiratory failure antibiotics resumed 05/14 for fever, hypotension ?possible aspiration history of resistant organisms-urine culture with low colony count acinetobacter - suspect colonization as she is afebrile and clinically improved without treating the acinetobacter MS day #5 zosyn- complete 7 days clinically much improved suspect colonization with the acinetobacter d/w Dr Lopez to consider palliative care consult to help define goals of care
[2016-05-18] MEDS: PANTOPRAZOLE SODIUM 100 ML IVPB SCH ×2 (09:18→22:06)
[2016-05-18] MEDS: AMINO ACIDS/PROTEIN HYDROLYS 30 ML LIQUID.PKT NGT SCH (09:18)
[2016-05-18] MEDS: ENOXAPARIN NA (PORCINE) 40 MG/0.4 ML DISP.SYRIN SQ SCH (09:18)
--- NOTE | 2016-05-18 12:17 | PN ---
Teaching Attending Note Name of Resident: Mickey Mandel ATTENDING PHYSICIAN STATEMENT I saw and evaluated the patient. I reviewed the resident's note and discussed the case with the resident. I agree with the resident's findings and plan as documented. SUBJECTIVE: Patient seen and examined in the ICU. Awake and alert on AC mode of vent. Afebrile this AM. CXR: No gross change in LLL infiltrate/effusion OBJECTIVE: Intake & Output 05/15/16 05/16/16 05/17/16 05/18/16 22:59 22:59 23:59 23:59 Intake Total 1320 Output Total 850 Balance 470 Weight 152 lb 11.2 oz Last Vital Signs Temp Pulse Resp BP Pulse Ox 97.7 F 87 21 103/59 98 05/18/16 10:00 05/18/16 12:01 05/18/16 10:00 05/18/16 10:00 05/18/16 12:01 Active Medications Acetaminophen (Tylenol -) 650 mg PO Q6H PRN PRN Reason: FEVER OR PAIN Last Admin: 05/17/16 22:10 Dose: 650 mg Albuterol Sulfate (Ventolin 0.083% Nebulizer Soln -) 1 amp NEB Q4H PRN PRN Reason: SHORT OF BREATH/WHEEZING Last Admin: 05/18/16 12:01 Dose: 1 amp Amino Acids (Prosource No Carb Liquid Pkt) 30 ml NGT DAILY [facility] Last Admin: 05/18/16 09:18 Dose: 30 ml Enoxaparin Sodium (Lovenox -) 40 mg SQ DAILY [facility] Last Admin: 05/18/16 09:18 Dose: 40 mg Hydrocortisone Sodium Succinate (Solu-Cortef -) 20 mg IVPB DAILY@0800 [facility] Last Admin: 05/18/16 08:50 Dose: 20 mg Pantoprazole Sodium (Protonix 40mg Ivpb (Pre-Docked)) 100 mls @ 200 mls/hr IVPB BID [facility] Last Admin: 05/18/16 09:18 Dose: 200 mls/hr Piperacillin Sod/Tazobactam Sod (Zosyn 4.5gm Ivpb (Pre-Docked)) 100 mls @ 200 mls/hr IVPB Q8H-IV CATHERINE PRN Reason: Protocol Last Admin: 05/18/16 09:18 Dose: 200 mls/hr Lactulose (Cephulac (Oral Use)) 20 gm PO HS PRN PRN Reason: CONSTIPATION Levothyroxine Sodium (Synthroid -) 88 mcg PO DAILY@0700 [facility] Last Admin: 05/18/16 06:38 Dose: 88 mcg Lidocaine HCl (Xylocaine 5% Top. Ointment) 1 applic TP DAILY [facility] Last Admin: 05/17/16 10:09 Dose: 1 applic Mirtazapine (Remeron -) 7.5 mg PO HS [facility] Last Admin: 05/17/16 22:06 Dose: 7.5 mg Mupirocin (Bactroban 2% Ointment -) 1 applic TP BID [facility] Last Admin: 05/17/16 23:00 Dose: 1 applic Sodium Chloride (Normal Saline -) 720 ml IV Q20M PRN PRN Reason: MAP<65mm Hg OR SBP <90 Gen: vented, awake, alert Heart: RRR Lung: decreased breath sounds at the bases Abd: soft, nontender Ext: no edema ASSESSMENT AND PLAN: UTI Sacral Decubitus Ulcer Pneumonia Septic Shock resolving Altered Mental Status from above improving Multiple Sclerosis Hypothyroidism Adrenal Insufficiency - ABX per ID - Would D/C hydrocortisone over the next few days - spontaneous breathing trials as tolerated - inhaled bronchodilators - O2 to keep SpO2 >90% - DVT/GI prophylaxis Dr Fox CCTime 35"
--- NOTE | 2016-05-18 14:28 | PN ---
Physical Exam: SUBJECTIVE: Patient seen and examined at bedside in the ICU. She reported no complaints, denied sob, chest pain, fever, chills, urinary or bowel sx. Per nurse, no acute respiratory event overnight. OBJECTIVE: Trached and tolerating CPAP Vent settings: AC, RR 14, TV 450, FiO2 60, PEEP 5 Off pressors Vital Signs Period Temp Pulse Resp BP Sys/Morillo Pulse Ox Last 24 Hr 97.6 F-98.7 F 63-102 14-22 91-164/41-63 98-100 GENERAL: The patient is awake, alert, fully oriented EYES: pupils equal and reactive to light ENT: NG tube in place LUNGS: CTAB HEART: RRR ABDOMEN: Soft, nontender, nondistended, normoactive bowel sounds EXTREMITIES: no edema, peripheral line in place : perera in place, light yellow urine SKIN: No sign of rash or lesion Laboratory Results - last 24 hr 05/18/16 05/18/16 05:00 05:00 WBC 6.0 RBC 2.83 L Hgb 8.6 L Hct 26.1 L MCV 92.1 MCHC 33.1 RDW 17.0 H Plt Count 535 H MPV 8.0 Neutrophils % 63.2 Lymphocytes % 19.9 Monocytes % 11.9 H Eosinophils % 4.0 Basophils % 1.0 Sodium 140 Potassium 4.4 Chloride 103 Carbon Dioxide 31 Anion Gap 6 L BUN 24 H Creatinine 0.5 L Creat Clearance w eGFR > 60 Random Glucose 145 H Calcium 8.6 Total Bilirubin 0.4 AST 16 D ALT 27 Alkaline Phosphatase 138 H Total Protein 6.3 L Albumin 2.2 L Active Medications Generic Name Dose Route Start Last Admin Trade Name Miguel Ángelq PRN Reason Stop Dose Admin Acetaminophen 650 mg 05/12/16 18:07 05/17/16 22:10 Tylenol - PO 650 mg Q6H PRN Administration FEVER OR PAIN Albuterol Sulfate 1 amp 05/14/16 00:36 05/18/16 12:01 Ventolin 0.083% Nebulizer Soln - NEB 1 amp Q4H PRN Administration SHORT OF BREATH/WHEEZING Amino Acids 30 ml 05/13/16 10:00 05/18/16 09:18 Prosource No Carb Liquid Pkt NGT 30 ml DAILY [facility] Administration Enoxaparin Sodium 40 mg 05/13/16 10:00 05/18/16 09:18 Lovenox - SQ 40 mg DAILY [facility] Administration Hydrocortisone Sodium Succinate 20 mg 05/16/16 08:00 05/18/16 08:50 Solu-Cortef - IVPB 20 mg DAILY@0800 [facility] Administration Pantoprazole Sodium 100 mls @ 200 mls/hr 05/12/16 22:00 05/18/16 09:18 Protonix 40mg Ivpb (Pre-Docked) IVPB 200 mls/hr BID [facility] Administration Piperacillin Sod/Tazobactam Sod 100 mls @ 200 mls/hr 05/14/16 10:00 05/18/16 09 :18 Zosyn 4.5gm Ivpb (Pre-Docked) IVPB 200 mls/hr Q8H-IV CATHERINE Administration Protocol Lactulose 20 gm 05/12/16 18:07 Cephulac (Oral Use) PO HS PRN CONSTIPATION Levothyroxine Sodium 88 mcg 05/13/16 07:00 05/18/16 06:38 Synthroid - PO 88 mcg DAILY@0700 [facility] Administration Lidocaine HCl 1 applic 05/15/16 12:30 05/17/16 10:09 Xylocaine 5% Top. Ointment TP 1 applic DAILY [facility] Administration Mirtazapine 7.5 mg 05/12/16 22:00 05/17/16 22:06 Remeron - PO 7.5 mg HS [facility] Administration Mupirocin 1 applic 05/12/16 22:00 05/17/16 23:00 Bactroban 2% Ointment - TP 1 applic BID [facility] Administration Sodium Chloride 720 ml 05/12/16 18:07 Normal Saline - IV Q20M PRN MAP<65mm Hg OR SBP <90 Microbiology 05/13/16 01:40 Urine - Urine Perera Urine Culture - Preliminary Lactose Fermenting Neg Bacilli Imaging: CXR 05/18: LL infiltrate and pleural effusion CXR 05/15: Slightly worse. Progressive pulmonary and pleural changes, left greater than right ASSESSMENT/PLAN: 51 yo F h/o HTN, multiple sclerosis with quadraplegia, chronic urinary retention and chronic respiratory insufficiency, seizure disorder and hypothyroidism admitted to the ICU for baclofen toxicity vs. sepsis 2/2 UTI. Patient is trached and on venti-mask during the day and on vent at night. She had multiple admissions for MDR infections such as UTI and decubitus ulcer in the sacral. Neuro: AMS 2/2 urosepsis in the setting of deteriorating MS - Mental status now at baseline - Cont. AED and zolof - Neuro check Q2H Pulm: Chronic respiratory insufficiency 2/2 ?MS - Back on trach collar - Maintain O2 Sat. > 88% - Nebulizers PRN - Daily CXR ID: Sepsis 2/2 UTI, Complicated vs Sacral decubitus ulcers; pneumonia - WBC normalized with no fevers - Positive urine and sputum cultures, f/u official - Routine wound care for decub. ulcers - On zosyn (Day 5) Renal/: UTI in the setting of chronic urinary retention - Maintain perera for urinary retention Heme: Macrocytic Anemia - Baseline HGB @ 8.6-10 - Transfuse if HGB < 7 Cardiac: Hypotension - Off pressor now Endo: Hypothyrodism and ?adrenal insufficiency - Normal TSH and free T4 - Cont. synthroid - Taper down steroids Derm: Lower extremity purpura 2/2 drug allergy vs. skin irritation - Rashes resolved - Local skin care and monitor FEN - IVF not indicated at this point - Cont. to monitor lytes - Tube feed perative - Prophylaxis - DVT: lovenox 40mg QD - GI: on PPI Disposition - Transfer to [facility] floor Code status - Full code Visit type - Emergency Visit Emergency Visit: No - New Patient This patient is new to me today: No - Critical Care Critical Care patient: Yes Total Critical Care Time (in minutes): 35 Critical Care Statement: The care of this patient involved high complexity decision making to prevent further life threatening deterioration of the patient 's condition and/or to evalute & treat vital organ system(s) failure or risk of failure.
[2016-05-18] MEDS ORDERED: ACETAMINOPHEN 1000 MG/100 ML VIAL (NON FORMULARY) IVPB PRN (17:55)
[2016-05-18] MEDS: LIDOCAINE HCL 5% TOP OINTMENT 50 GM TUBE TP SCH (18:02)
[2016-05-18] MEDS: MUPIROCIN 2% TOPICAL OINTMENT 22 GM TUBE TP SCH (18:02)
[2016-05-18] MEDS: ACETAMINOPHEN 650 MG/20.3 ML ORAL SOLUTION (CUPS) NGT PRN (18:08)
[2016-05-18] MEDS ORDERED: ACETAMINOPHEN 325 MG TABLET (FP) PO PRN (18:24)
[2016-05-18] MEDS ORDERED: SODIUM CHLORIDE 0.9% 1000 ML INFUS.BAG IV PRN (18:24)
[2016-05-18] MEDS ORDERED: ALBUTEROL SO4 0.083% IH SOL 2.5 MG/3 ML VIAL.NEB. NEB PRN (18:24)
[2016-05-18] MEDS ORDERED: LACTULOSE 20 GM/30 ML UDC (FOR ORAL USE ONLY) PO PRN (18:24)
[2016-05-18] MEDS: MIRTAZAPINE 15 MG TABLET (FP) PO SCH (22:06)
[2016-05-19] MEDS: PIPERACILLIN/TAZOB 4.5 GM 100 ML IVPB SCH ×3 (02:42→18:09)
[2016-05-19] MEDS: LEVOTHYROXINE NA 88 MCG TABLET (FP) PO SCH (06:33)
[2016-05-19 06:48] LABS: MCH 30.6 pg (25.7-33.7); MCHC 33.1 g/dl (32.0-36.0); MEAN CELL VOLUME 92.4 fl (80-96); PLATELET COUNT 586 K/MM3 (134-434); RDW 16.8 % (11.6-15.6); WHITE BLOOD COUNT 6.5 K/mm3 (4.0-10.0)
[2016-05-19 07:00] LABS: CALCIUM 8.5 mg/dL (8.5-10.1); CREATININE 0.4 mg/dL (0.55-1.02); MAGNESIUM 2.1 mg/dL (1.8-2.4); PHOSPHOROUS 2.5 mg/dL (2.5-4.9)
[2016-05-19] MEDS ORDERED: HYDROCORTISONE SOD SUCCINATE 100 MG/2 ML VIAL IVPB SCH (08:00)
[2016-05-19] MEDS ORDERED: LIDOCAINE HCL 5% TOP OINTMENT 50 GM TUBE TP SCH (10:00)
[2016-05-19] MEDS: ENOXAPARIN NA (PORCINE) 40 MG/0.4 ML DISP.SYRIN SQ SCH (10:02)
[2016-05-19] MEDS: AMINO ACIDS/PROTEIN HYDROLYS 30 ML LIQUID.PKT NGT SCH (10:02)
[2016-05-19] MEDS: PANTOPRAZOLE SODIUM 100 ML IVPB SCH ×2 (10:02→21:30)
--- NOTE | 2016-05-19 10:17 | PN ---
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 (short form) - Note 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: Renal Followup for Hyponatremia Pt seen and examined in the ICU on trach, CPAP no acute complaints on Tube feeds Vital Signs Temperature 97.1 F L 05/19/16 06:00 Pulse Rate 72 05/19/16 09:16 Respiratory Rate 18 05/19/16 09:16 Blood Pressure 119/47 05/19/16 06:00 O2 Sat by Pulse Oximetry (%) 98 05/19/16 09:16 Intake & Output 05/16/16 05/17/16 05/18/16 05/19/16 22:59 23:59 23:59 23:59 Intake Total 2520 1140 Output Total 2150 900 Balance 370 240 Weight 152 lb 11.2 oz 150 lb 6 oz Gen: Awake and alert, NAD, NGT in place HEENT: Trach in place, on Vent CVS: RRR, No M/R Lungs: Dec BS Abd: Soft NT/ND Ext: no edema, clubbing or cyanosis : perera in place CBC, BMP 05/19/16 05:05 05/19/16 05:05 Current Medications Acetaminophen (Tylenol Oral Solution -) 650 mg NGT Q6H PRN PRN Reason: FEVER OR PAIN Last Admin: 05/18/16 18:08 Dose: 650 mg Acetaminophen (Tylenol -) 650 mg PO Q6H PRN PRN Reason: FEVER OR PAIN Albuterol Sulfate (Ventolin 0.083% Nebulizer Soln -) 1 amp NEB Q4H PRN PRN Reason: SHORT OF BREATH/WHEEZING Last Admin: 05/19/16 09:16 Dose: 1 amp Amino Acids (Prosource No Carb Liquid Pkt) 30 ml NGT DAILY [facility] Last Admin: 05/19/16 10:02 Dose: 30 ml Enoxaparin Sodium (Lovenox -) 40 mg SQ DAILY [facility] Last Admin: 05/19/16 10:02 Dose: 40 mg Hydrocortisone Sodium Succinate (Solu-Cortef -) 20 mg IVPB DAILY@0800 [facility] Last Admin: 05/19/16 07:50 Dose: 20 mg Pantoprazole Sodium (Protonix 40mg Ivpb (Pre-Docked)) 100 mls @ 200 mls/hr IVPB BID [facility] Last Admin: 05/19/16 10:02 Dose: 200 mls/hr Piperacillin Sod/Tazobactam Sod (Zosyn 4.5gm Ivpb (Pre-Docked)) 100 mls @ 200 mls/hr IVPB Q8H-IV [facility] PRN Reason: Protocol Last Admin: 05/19/16 10:05 Dose: 200 mls/hr Lactulose (Cephulac (Oral Use)) 20 gm PO HS PRN PRN Reason: CONSTIPATION Levothyroxine Sodium (Synthroid -) 88 mcg PO DAILY@0700 [facility] Last Admin: 05/19/16 06:33 Dose: 88 mcg Lidocaine HCl (Xylocaine 5% Top. Ointment) 1 applic TP DAILY [facility] Last Admin: 05/19/16 10:04 Dose: Not Given Mirtazapine (Remeron -) 7.5 mg PO HS [facility] Last Admin: 05/18/16 22:06 Dose: 7.5 mg Sodium Chloride (Normal Saline -) 720 ml IV Q20M PRN PRN Reason: MAP<65mm Hg OR SBP <90 A/P 51 year old woman with PMHx of Multiple Sclerosis, Chronic Resp Failure with Trach Collar, Hx of recurrent UTI, Periods of hyponatremia presented with AMS/ Lethargy and found to have Sepsis with Hypotension and Na of 126. #Sepsis/Urinary Tract Infection/Chronic Resp Failure clinical status improved continue management as per ICU #Electrolyte Abnormalities electrolytes WNL continue tube feeds trend Shakir, Mg Tyshawn Doe DO
--- NOTE | 2016-05-19 11:47 | PN ---
Teaching Attending Note Name of Resident: Mickey Mandel ATTENDING PHYSICIAN STATEMENT I saw and evaluated the patient. I reviewed the resident's note and discussed the case with the resident. I agree with the resident's findings and plan as documented. SUBJECTIVE: Patient seen and examined in the ICU. Awake and alert on AC mode of vent. Remains afebrile this AM. CXR: No gross change in LLL infiltrate/effusion OBJECTIVE: Intake & Output 05/16/16 05/17/16 05/18/16 05/19/16 22:59 23:59 23:59 23:59 Intake Total 2520 1340 Output Total 2150 900 Balance 370 440 Weight 152 lb 11.2 oz 150 lb 6 oz Last Vital Signs Temp Pulse Resp BP Pulse Ox 97.2 F L 82 18 131/51 95 05/19/16 10:00 05/19/16 10:00 05/19/16 10:00 05/19/16 10:00 05/19/16 10:00 Active Medications Acetaminophen (Tylenol Oral Solution -) 650 mg NGT Q6H PRN PRN Reason: FEVER OR PAIN Last Admin: 05/18/16 18:08 Dose: 650 mg Acetaminophen (Tylenol -) 650 mg PO Q6H PRN PRN Reason: FEVER OR PAIN Albuterol Sulfate (Ventolin 0.083% Nebulizer Soln -) 1 amp NEB Q4H PRN PRN Reason: SHORT OF BREATH/WHEEZING Last Admin: 05/19/16 09:16 Dose: 1 amp Amino Acids (Prosource No Carb Liquid Pkt) 30 ml NGT DAILY [facility] Last Admin: 05/19/16 10:02 Dose: 30 ml Enoxaparin Sodium (Lovenox -) 40 mg SQ DAILY [facility] Last Admin: 05/19/16 10:02 Dose: 40 mg Hydrocortisone Sodium Succinate (Solu-Cortef -) 20 mg IVPB DAILY@0800 [facility] Last Admin: 05/19/16 07:50 Dose: 20 mg Pantoprazole Sodium (Protonix 40mg Ivpb (Pre-Docked)) 100 mls @ 200 mls/hr IVPB BID [facility] Last Admin: 05/19/16 10:02 Dose: 200 mls/hr Piperacillin Sod/Tazobactam Sod (Zosyn 4.5gm Ivpb (Pre-Docked)) 100 mls @ 200 mls/hr IVPB Q8H-IV [facility] PRN Reason: Protocol Last Admin: 05/19/16 10:05 Dose: 200 mls/hr Lactulose (Cephulac (Oral Use)) 20 gm PO HS PRN PRN Reason: CONSTIPATION Levothyroxine Sodium (Synthroid -) 88 mcg PO DAILY@0700 [facility] Last Admin: 05/19/16 06:33 Dose: 88 mcg Lidocaine HCl (Xylocaine 5% Top. Ointment) 1 applic TP DAILY [facility] Last Admin: 05/19/16 10:04 Dose: Not Given Mirtazapine (Remeron -) 7.5 mg PO HS [facility] Last Admin: 05/18/16 22:06 Dose: 7.5 mg Sodium Chloride (Normal Saline -) 720 ml IV Q20M PRN PRN Reason: MAP<65mm Hg OR SBP <90 Gen: vented, awake, alert Heart: RRR Lung: decreased breath sounds at the bases Abd: soft, nontender Ext: no edema Laboratory Results - last 24 hr 05/19/16 05/19/16 05:05 05:05 WBC 6.5 RBC 2.95 L Hgb 9.0 L Hct 27.3 L MCV 92.4 MCHC 33.1 RDW 16.8 H Plt Count 586 H MPV 8.0 Sodium 139 Potassium 4.6 Chloride 100 Carbon Dioxide 32 Anion Gap 7 L BUN 25 H Creatinine 0.4 L Random Glucose 141 H Calcium 8.5 Phosphorus 2.5 Magnesium 2.1 ASSESSMENT AND PLAN: UTI Sacral Decubitus Ulcer Pneumonia Septic Shock resolving Altered Mental Status from above improving Multiple Sclerosis Hypothyroidism Adrenal Insufficiency - ABX per ID - Would D/C hydrocortisone over the next few days - spontaneous breathing trials as tolerated - inhaled bronchodilators - O2 to keep SpO2 >90% - DVT/GI prophylaxis - Vent floor Dr Fox
--- NOTE | 2016-05-19 15:05 | PN ---
Physical Exam: SUBJECTIVE: Patient seen and examined at bedside in the ICU. She reported feeling fine overnight, denied sob, chest pain, fever, chills, urinary or bowel sx. Per nurse , she tolerated trach collar till yesterday 11pm. OBJECTIVE: Trached and tolerating trach collar Off pressors Vital Signs Period Temp Pulse Resp BP Sys/Morillo Pulse Ox Last 24 Hr 97 F-97.9 F 67-84 13-18 106-141/41-73 95-100 GENERAL: The patient is awake, alert, fully oriented EYES: pupils equal and reactive to light ENT: NG tube in place LUNGS: CTAB HEART: RRR ABDOMEN: Soft, nontender, nondistended, normoactive bowel sounds EXTREMITIES: no edema, peripheral line in place : perera in place, light yellow urine SKIN: No sign of rash or lesion Laboratory Results - last 24 hr 05/19/16 05/19/16 05:05 05:05 WBC 6.5 RBC 2.95 L Hgb 9.0 L Hct 27.3 L MCV 92.4 MCHC 33.1 RDW 16.8 H Plt Count 586 H MPV 8.0 Sodium 139 Potassium 4.6 Chloride 100 Carbon Dioxide 32 Anion Gap 7 L BUN 25 H Creatinine 0.4 L Random Glucose 141 H Calcium 8.5 Phosphorus 2.5 Magnesium 2.1 Active Medications Generic Name Dose Route Start Last Admin Trade Name Freq PRN Reason Stop Dose Admin Acetaminophen 650 mg 05/18/16 18:01 05/18/16 18:08 Tylenol Oral Solution - NGT 650 mg Q6H PRN Administration FEVER OR PAIN Acetaminophen 650 mg 05/18/16 18:24 Tylenol - PO Q6H PRN FEVER OR PAIN Albuterol Sulfate 1 amp 05/18/16 18:24 05/19/16 09:16 Ventolin 0.083% Nebulizer Soln - NEB 1 amp Q4H PRN Administration SHORT OF BREATH/WHEEZING Amino Acids 30 ml 05/19/16 10:00 05/19/16 10:02 Prosource No Carb Liquid Pkt NGT 30 ml DAILY CATHERINE Administration Enoxaparin Sodium 40 mg 05/19/16 10:00 05/19/16 10:02 Lovenox - SQ 40 mg DAILY CATHERINE Administration Hydrocortisone Sodium Succinate 20 mg 05/19/16 08:00 05/19/16 07:50 Solu-Cortef - IVPB 20 mg DAILY@0800 CATHERINE Administration Pantoprazole Sodium 100 mls @ 200 mls/hr 05/18/16 22:00 05/19/16 10:02 Protonix 40mg Ivpb (Pre-Docked) IVPB 200 mls/hr BID CATHERINE Administration Piperacillin Sod/Tazobactam Sod 100 mls @ 200 mls/hr 05/19/16 02:00 05/19/16 10 :05 Zosyn 4.5gm Ivpb (Pre-Docked) IVPB 200 mls/hr Q8H-IV CATHERINE Administration Protocol Lactulose 20 gm 05/18/16 18:24 Cephulac (Oral Use) PO HS PRN CONSTIPATION Levothyroxine Sodium 88 mcg 05/19/16 07:00 05/19/16 06:33 Synthroid - PO 88 mcg DAILY@0700 CATHERINE Administration Mirtazapine 7.5 mg 05/18/16 22:00 05/18/16 22:06 Remeron - PO 7.5 mg HS CATHERINE Administration Sodium Chloride 720 ml 05/18/16 18:24 Normal Saline - IV Q20M PRN MAP<65mm Hg OR SBP <90 Microbiology 05/13/16 01:40 Urine - Urine Perera Urine Culture - Preliminary Lactose Fermenting Neg Bacilli Imaging: CXR 05/19: No change CXR 05/18: LL infiltrate and pleural effusion CXR 05/15: Slightly worse. Progressive pulmonary and pleural changes, left greater than right ASSESSMENT/PLAN: 51 yo F h/o HTN, multiple sclerosis with quadraplegia, chronic urinary retention and chronic respiratory insufficiency, seizure disorder and hypothyroidism admitted to the ICU for baclofen toxicity vs. sepsis 2/2 UTI. Patient is trached and on venti-mask during the day and on vent at night. She had multiple admissions for MDR infections such as UTI and decubitus ulcer in the sacral. Neuro: AMS 2/2 urosepsis in the setting of deteriorating MS - Mental status now at baseline - Cont. AED and zolof - Neuro check Q2H Pulm: Chronic respiratory insufficiency 2/2 ?MS - Tolerating trach collar, back to baseline - Maintain O2 Sat. > 88% - Nebulizers PRN ID: Sepsis 2/2 UTI, Complicated vs Sacral decubitus ulcers; pneumonia - Resolved - WBC normalized with no fevers - Routine wound care for decub. ulcers - On zosyn (Day 6) Renal/: UTI in the setting of chronic urinary retention - Maintain perera for urinary retention Heme: Macrocytic Anemia - Baseline HGB @ 8.6-10 - Transfuse if HGB < 7 Cardiac: Hypotension - Off pressor now Endo: Hypothyrodism and ?adrenal insufficiency - Normal TSH and free T4 - Cont. synthroid - Stop steroid Derm: Lower extremity purpura 2/2 drug allergy vs. skin irritation - Rashes resolved - Local skin care and monitor FEN - IVF not indicated at this point - Cont. to monitor lytes - Tube feed perative - Prophylaxis - DVT: lovenox 40mg QD - GI: on PPI Disposition - Barium swallow study on Wednesday - Transfer to vent floor or discharge from ICU Code status - Full code Visit type - Emergency Visit Emergency Visit: No - New Patient This patient is new to me today: No - Critical Care Critical Care patient: Yes Total Critical Care Time (in minutes): 45 Critical Care Statement: The care of this patient involved high complexity decision making to prevent further life threatening deterioration of the patient 's condition and/or to evalute & treat vital organ system(s) failure or risk of failure.
--- NOTE | 2016-05-19 19:14 | PN ---
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, Physician Chief Complaint: awake alert able to talk and communicate ngt in place with feeds running - Current Medication List Current Medications: Active Medications Acetaminophen (Tylenol Oral Solution -) 650 mg NGT Q6H PRN PRN Reason: FEVER OR PAIN Last Admin: 05/18/16 18:08 Dose: 650 mg Acetaminophen (Tylenol -) 650 mg PO Q6H PRN PRN Reason: FEVER OR PAIN Albuterol Sulfate (Ventolin 0.083% Nebulizer Soln -) 1 amp NEB Q4H PRN PRN Reason: SHORT OF BREATH/WHEEZING Last Admin: 05/19/16 09:16 Dose: 1 amp Amino Acids (Prosource No Carb Liquid Pkt) 30 ml NGT DAILY [facility] Last Admin: 05/19/16 10:02 Dose: 30 ml Enoxaparin Sodium (Lovenox -) 40 mg SQ DAILY [facility] Last Admin: 05/19/16 10:02 Dose: 40 mg Pantoprazole Sodium (Protonix 40mg Ivpb (Pre-Docked)) 100 mls @ 200 mls/hr IVPB BID [facility] Last Admin: 05/19/16 10:02 Dose: 200 mls/hr Piperacillin Sod/Tazobactam Sod (Zosyn 4.5gm Ivpb (Pre-Docked)) 100 mls @ 200 mls/hr IVPB Q8H-IV CATHERINE PRN Reason: Protocol Last Admin: 05/19/16 18:09 Dose: 200 mls/hr Lactulose (Cephulac (Oral Use)) 20 gm PO HS PRN PRN Reason: CONSTIPATION Levothyroxine Sodium (Synthroid -) 88 mcg PO DAILY@0700 [facility] Last Admin: 05/19/16 06:33 Dose: 88 mcg Mirtazapine (Remeron -) 7.5 mg PO HS [facility] Last Admin: 05/18/16 22:06 Dose: 7.5 mg Sodium Chloride (Normal Saline -) 720 ml IV Q20M PRN PRN Reason: MAP<65mm Hg OR SBP <90 - Objective Vital Signs: Vital Signs Temperature 97.0 F L 05/19/16 14:00 Pulse Rate 73 05/19/16 16:00 Respiratory Rate 15 05/19/16 16:00 Blood Pressure 132/73 05/19/16 16:00 O2 Sat by Pulse Oximetry (%) 98 05/19/16 12:58 Constitutional: Yes: No Distress Eyes: Yes: WNL HENT: Yes: WNL Neck: Yes: WNL Cardiovascular: Yes: WNL Respiratory: Yes: Mechanically Ventilated, Other (tracheostomy) Gastrointestinal: Yes: WNL Genitourinary: Yes: Incontinence Extremities: Yes: WNL Edema: Yes Edema: LLE: Trace, RLE: Trace Peripheral Pulses WNL: Yes Wound/Incision: Yes: Dressing Dry and Intact, Other Neurological: Yes: Pre-Existing Deficit, Weakness ...Motor Strength: LLE, RLE Psychiatric: Yes: Other Labs: CBC, BMP 05/19/16 05:05 05/19/16 05:05 INR, PTT INR 1.19 (0.82-1.09) H 05/14/16 00:40 Assessment/Plan PATIENT STILL ON VENT AND OFF TOLERATED CAN CONTINUE TOLERATED WILL NOT FEED PO UNTIL SHE IS BREATHING BETTER NGT WITH FEEDS IN [facility] TODAY MS REFERRAL TO [facility] FOR HOME SERVICES DISCUSSED WITH HER SISTER ALVAREZ
[2016-05-19] MEDS: MIRTAZAPINE 15 MG TABLET (FP) PO SCH (21:30)
[2016-05-20] MEDS: PIPERACILLIN/TAZOB 4.5 GM 100 ML IVPB SCH ×3 (02:10→18:54)
[2016-05-20] MEDS ORDERED: PT OWN MED DRAWER 7, Y5N ONE ×2 (02:50→15:02)
[2016-05-20 06:05] LABS: BASOPHIL 1.1 % (0-2.0); EOSINOPHIL 4.7 % (0-4.5); MCH 31.3 pg (25.7-33.7); MCHC 33.8 g/dl (32.0-36.0); MEAN CELL VOLUME 92.7 fl (80-96); NEUTROPHILS 53.4 % (42.8-82.8); PLATELET COUNT 501 K/MM3 (134-434); RDW 17.3 % (11.6-15.6); WHITE BLOOD COUNT 6.1 K/mm3 (4.0-10.0)
[2016-05-20 06:11] LABS: CALCIUM 8.3 mg/dL (8.5-10.1); CREATININE 0.4 mg/dL (0.55-1.02); PHOSPHOROUS 2.5 mg/dL (2.5-4.9)
[2016-05-20] MEDS: LEVOTHYROXINE NA 88 MCG TABLET (FP) PO SCH (06:31)
--- NOTE | 2016-05-20 07:59 | PN ---
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, Physician Chief Complaint: ID Remains stable alert NAD Day 6 PIp Tazo - Current Medication List Current Medications: Active Medications Acetaminophen (Tylenol Oral Solution -) 650 mg NGT Q6H PRN PRN Reason: FEVER OR PAIN Last Admin: 05/18/16 18:08 Dose: 650 mg Acetaminophen (Tylenol -) 650 mg PO Q6H PRN PRN Reason: FEVER OR PAIN Last Admin: 05/19/16 22:07 Dose: 650 mg Albuterol Sulfate (Ventolin 0.083% Nebulizer Soln -) 1 amp NEB Q4H PRN PRN Reason: SHORT OF BREATH/WHEEZING Last Admin: 05/19/16 09:16 Dose: 1 amp Amino Acids (Prosource No Carb Liquid Pkt) 30 ml NGT DAILY [facility] Last Admin: 05/19/16 10:02 Dose: 30 ml Enoxaparin Sodium (Lovenox -) 40 mg SQ DAILY [facility] Last Admin: 05/19/16 10:02 Dose: 40 mg Pantoprazole Sodium (Protonix 40mg Ivpb (Pre-Docked)) 100 mls @ 200 mls/hr IVPB BID [facility] Last Admin: 05/19/16 21:30 Dose: 200 mls/hr Piperacillin Sod/Tazobactam Sod (Zosyn 4.5gm Ivpb (Pre-Docked)) 100 mls @ 200 mls/hr IVPB Q8H-IV CATHERINE PRN Reason: Protocol Last Admin: 05/20/16 02:10 Dose: 200 mls/hr Lactulose (Cephulac (Oral Use)) 20 gm PO HS PRN PRN Reason: CONSTIPATION Levothyroxine Sodium (Synthroid -) 88 mcg PO DAILY@0700 [facility] Last Admin: 05/20/16 06:31 Dose: 88 mcg Mirtazapine (Remeron -) 7.5 mg PO HS [facility] Last Admin: 05/19/16 21:30 Dose: 7.5 mg Sodium Chloride (Normal Saline -) 720 ml IV Q20M PRN PRN Reason: MAP<65mm Hg OR SBP <90 - Objective Vital Signs: Vital Signs Temperature 97.6 F 05/20/16 06:00 Pulse Rate 68 05/20/16 06:00 Respiratory Rate 15 05/20/16 06:36 Blood Pressure 127/60 05/20/16 06:00 O2 Sat by Pulse Oximetry (%) 98 05/19/16 19:51 Constitutional: Yes: No Distress Neck: Yes: Other (Trach) Cardiovascular: Yes: S1, S2 Respiratory: Yes: WNL, Regular, CTA Bilaterally Gastrointestinal: Yes: Soft. No: Tenderness Edema: No Labs: CBC, BMP 05/20/16 05:10 05/20/16 05:10 INR, PTT INR 1.19 (0.82-1.09) H 05/14/16 00:40 Problem List - Problems (1) Sepsis syndrome Code(s): LSF0044 - (2) Urinary tract infection Code(s): N39.0 - URINARY TRACT INFECTION, SITE NOT SPECIFIED (3) Multiple sclerosis Code(s): G35 - MULTIPLE SCLEROSIS (4) Respiratory failure Code(s): J96.90 - RESPIRATORY FAILURE, UNSP, UNSP W HYPOXIA OR HYPERCAPNIA (5) Multiple drug resistant organism (MDRO) culture positive Code(s): Z16.24 - RESISTANCE TO MULTIPLE ANTIBIOTICS Assessment/Plan Microbiology 05/13/16 01:40 Blood - Peripheral Venous Blood Culture - Final NO GROWTH AFTER 5 DAYS INCUBATION 05/13/16 01:40 Blood - Peripheral Venous Blood Culture - Final NO GROWTH AFTER 5 DAYS INCUBATION Laboratory Tests 05/20/16 05/20/16 05:10 05:10 WBC 6.1 Hgb 8.9 L Hct 26.4 L Plt Count 501 H BUN 26 H Creatinine 0.4 L Assessment Aspiration PNA Multiple sclerosis Resistant organisms Acinetobacter currently assume tracheal colonization Plan Continue antibiotic another [id number] Anam PATIÑO
[2016-05-20] MEDS: ACETAMINOPHEN 650 MG/20.3 ML ORAL SOLUTION (CUPS) NGT PRN (08:18)
--- NOTE | 2016-05-20 09:28 | PN ---
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, Physician History of Present Illness: ON VENT - Current Medication List Current Medications: Active Medications Acetaminophen (Tylenol Oral Solution -) 650 mg NGT Q6H PRN PRN Reason: FEVER OR PAIN Last Admin: 05/20/16 08:18 Dose: 650 mg Acetaminophen (Tylenol -) 650 mg PO Q6H PRN PRN Reason: FEVER OR PAIN Last Admin: 05/19/16 22:07 Dose: 650 mg Albuterol Sulfate (Ventolin 0.083% Nebulizer Soln -) 1 amp NEB Q4H PRN PRN Reason: SHORT OF BREATH/WHEEZING Last Admin: 05/19/16 09:16 Dose: 1 amp Amino Acids (Prosource No Carb Liquid Pkt) 30 ml NGT DAILY [facility] Last Admin: 05/19/16 10:02 Dose: 30 ml Enoxaparin Sodium (Lovenox -) 40 mg SQ DAILY [facility] Last Admin: 05/19/16 10:02 Dose: 40 mg Pantoprazole Sodium (Protonix 40mg Ivpb (Pre-Docked)) 100 mls @ 200 mls/hr IVPB BID [facility] Last Admin: 05/19/16 21:30 Dose: 200 mls/hr Piperacillin Sod/Tazobactam Sod (Zosyn 4.5gm Ivpb (Pre-Docked)) 100 mls @ 200 mls/hr IVPB Q8H-IV CATHERINE PRN Reason: Protocol Last Admin: 05/20/16 02:10 Dose: 200 mls/hr Lactulose (Cephulac (Oral Use)) 20 gm PO HS PRN PRN Reason: CONSTIPATION Levothyroxine Sodium (Synthroid -) 88 mcg PO DAILY@0700 [facility] Last Admin: 05/20/16 06:31 Dose: 88 mcg Mirtazapine (Remeron -) 7.5 mg PO HS [facility] Last Admin: 05/19/16 21:30 Dose: 7.5 mg Sodium Chloride (Normal Saline -) 720 ml IV Q20M PRN PRN Reason: MAP<65mm Hg OR SBP <90 - Objective Vital Signs: Vital Signs Temperature 98.1 F 05/20/16 08:00 Pulse Rate 65 05/20/16 08:00 Respiratory Rate 14 05/20/16 08:00 Blood Pressure 109/49 05/20/16 08:00 O2 Sat by Pulse Oximetry (%) 98 05/19/16 19:51 Cardiovascular: Yes: S1, S2 Respiratory: Yes: Mechanically Ventilated Gastrointestinal: Yes: Normal Bowel Sounds, Soft Labs: CBC, BMP 05/20/16 05:10 05/20/16 05:10 INR, PTT INR 1.19 (0.82-1.09) H 05/14/16 00:40 Problem List - Problems (1) Sepsis Assessment/Plan: ON IV ABX RPT CULTURES NOTED--NEGATIVE ID CONSULT NOTED Code(s): A41.9 - SEPSIS, UNSPECIFIED ORGANISM Qualifiers: Qualified Code(s): A41.9 - Sepsis, unspecified organism (2) Altered mental status Assessment/Plan: IMPROVED AT BASELINE Code(s): R41.82 - ALTERED MENTAL STATUS, UNSPECIFIED Qualifiers: Qualified Code(s): R40.4 - Transient alteration of awareness (3) Hyponatremia Code(s): E87.1 - HYPO-OSMOLALITY AND HYPONATREMIA (4) Multiple sclerosis Code(s): G35 - MULTIPLE SCLEROSIS (5) Adrenal insufficiency Code(s): E27.40 - UNSPECIFIED ADRENOCORTICAL INSUFFICIENCY (6) Anemia Assessment/Plan: REPEAT PENDING S/P TRANSFUSION -HGB 8.9 Code(s): D64.9 - ANEMIA, UNSPECIFIED Qualifiers: Qualified Code(s): D63.8 - Anemia in other chronic diseases classified elsewhere (7) Pneumonia Assessment/Plan: ON IV ABX PER ID CXR NOTED- RPT CXR NOTED DAY 6 Code(s): J18.9 - PNEUMONIA, UNSPECIFIED ORGANISM (8) Presence of intrathecal baclofen pump Assessment/Plan: PER NEURO Code(s): Z98.89 - OTHER SPECIFIED POSTPROCEDURAL STATES * DO NOT USE *
[2016-05-20] MEDS: ENOXAPARIN NA (PORCINE) 40 MG/0.4 ML DISP.SYRIN SQ SCH (10:04)
[2016-05-20] MEDS: AMINO ACIDS/PROTEIN HYDROLYS 30 ML LIQUID.PKT NGT SCH (10:04)
[2016-05-20] MEDS: PANTOPRAZOLE SODIUM 100 ML IVPB SCH ×2 (10:05→21:47)
[2016-05-20] MEDS ORDERED: LIDOCAINE HCL 5% TOP OINTMENT 50 GM TUBE TP SCH (10:45)
[2016-05-20] MEDS ORDERED: MUPIROCIN 2% TOPICAL OINTMENT 22 GM TUBE TP SCH (11:00)
--- NOTE | 2016-05-20 12:31 | PN ---
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 (short form) - Note 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: Renal Followup for Hyponatremia Pt seen and examined in the ICU no acute complaints on trach collar getting NGT feeds BP stable good urine output via perera Vital Signs Temperature 98.1 F 05/20/16 08:00 Pulse Rate 81 05/20/16 11:56 Respiratory Rate 16 05/20/16 11:56 Blood Pressure 127/61 05/20/16 11:56 O2 Sat by Pulse Oximetry (%) 95 05/20/16 11:28 Gen: Awake and alert, NAD, NGT in place HEENT: Trach in place, on Vent CVS: RRR, No M/R Lungs: Dec BS Abd: Soft NT/ND Ext: no edema, clubbing or cyanosis : perera in place CBC, BMP 05/20/16 05:10 05/20/16 05:10 Current Medications Acetaminophen (Tylenol Oral Solution -) 650 mg NGT Q6H PRN PRN Reason: FEVER OR PAIN Last Admin: 05/20/16 08:18 Dose: 650 mg Acetaminophen (Tylenol -) 650 mg PO Q6H PRN PRN Reason: FEVER OR PAIN Last Admin: 05/19/16 22:07 Dose: 650 mg Albuterol Sulfate (Ventolin 0.083% Nebulizer Soln -) 1 amp NEB Q4H PRN PRN Reason: SHORT OF BREATH/WHEEZING Last Admin: 05/19/16 09:16 Dose: 1 amp Amino Acids (Prosource No Carb Liquid Pkt) 30 ml NGT DAILY [facility] Last Admin: 05/20/16 10:04 Dose: 30 ml Enoxaparin Sodium (Lovenox -) 40 mg SQ DAILY [facility] Last Admin: 05/20/16 10:04 Dose: 40 mg Pantoprazole Sodium (Protonix 40mg Ivpb (Pre-Docked)) 100 mls @ 200 mls/hr IVPB BID [facility]ERINE Last Admin: 05/20/16 10:05 Dose: 200 mls/hr Piperacillin Sod/Tazobactam Sod (Zosyn 4.5gm Ivpb (Pre-Docked)) 100 mls @ 200 mls/hr IVPB Q8H-IV CATHERINE PRN Reason: Protocol Last Admin: 05/20/16 10:05 Dose: 200 mls/hr Lactulose (Cephulac (Oral Use)) 20 gm PO HS PRN PRN Reason: CONSTIPATION Levothyroxine Sodium (Synthroid -) 88 mcg PO DAILY@0700 [facility] Last Admin: 05/20/16 06:31 Dose: 88 mcg Lidocaine HCl (Xylocaine 5% Top. Ointment) 1 applic TP ONCE CATHERINE Mirtazapine (Remeron -) 7.5 mg PO HS [facility] Last Admin: 05/19/16 21:30 Dose: 7.5 mg Mupirocin (Bactroban 2% Ointment -) 1 applic TP BID CATHERINE Sodium Chloride (Normal Saline -) 720 ml IV Q20M PRN PRN Reason: MAP<65mm Hg OR SBP <90 A/P 51 year old woman with PMHx of Multiple Sclerosis, Chronic Resp Failure with Trach Collar, Hx of recurrent UTI, Periods of hyponatremia presented with AMS/ Lethargy and found to have Sepsis with Hypotension and Na of 126. #Sepsis/Urinary Tract Infection/Chronic Resp Failure hemodynamically stable off pressers and IVF continue Abx as per ID #Electrolyte Abnormalities continue tube feeds with free water swallow eval today Continue to trend BUN/Cr, electrolytes Tyshawn Doe DO
--- NOTE | 2016-05-20 12:43 | PN ---
Physical Exam: SUBJECTIVE: Patient seen and examined at bedside in the ICU. No acute event overnight. OBJECTIVE: Vital Signs Period Temp Pulse Resp BP Sys/Moirllo Pulse Ox Last 24 Hr 97.0 F-98.3 F 60-81 12-18 107-132/47-73 95-100 GENERAL: The patient is awake, alert, fully oriented EYES: pupils equal and reactive to light ENT: NG tube in place LUNGS: CTAB HEART: RRR ABDOMEN: Soft, nontender, nondistended, normoactive bowel sounds EXTREMITIES: no edema, peripheral line in place : perera in place, light yellow urine SKIN: new scaly lesions behind R knee CBCD WBC 6.1 K/mm3 (4.0-10.0) 05/20/16 05:10 RBC 2.85 M/mm3 (3.60-5.2) L 05/20/16 05:10 Hgb 8.9 GM/dL (10.7-15.3) L 05/20/16 05:10 Hct 26.4 % (32.4-45.2) L 05/20/16 05:10 MCV 92.7 fl (80-96) 05/20/16 05:10 MCHC 33.8 g/dl (32.0-36.0) 05/20/16 05:10 RDW 17.3 % (11.6-15.6) H 05/20/16 05:10 Plt Count 501 K/MM3 (134-434) H 05/20/16 05:10 MPV 8.0 fl (7.5-11.1) 05/20/16 05:10 CMP Sodium 138 mmol/L (136-145) 05/20/16 05:10 Potassium 4.4 mmol/L (3.5-5.1) 05/20/16 05:10 Chloride 100 mmol/L (98-107) 05/20/16 05:10 Carbon Dioxide 32 mmol/L (21-32) 05/20/16 05:10 Anion Gap 6 (8-16) L 05/20/16 05:10 BUN 26 mg/dL (7-18) H 05/20/16 05:10 Creatinine 0.4 mg/dL (0.55-1.02) L 05/20/16 05:10 Creat Clearance w eGFR > 60 (>60) 05/18/16 05:00 Calcium 8.3 mg/dL (8.5-10.1) L 05/20/16 05:10 Total Bilirubin 0.4 mg/dL (0.2-1.0) 05/18/16 05:00 AST 16 U/L (15-37) D 05/18/16 05:00 ALT 27 U/L (12-78) 05/18/16 05:00 Alkaline Phosphatase 138 U/L (45-117) H 05/18/16 05:00 Total Protein 6.3 g/dl (6.4-8.2) L 05/18/16 05:00 Albumin 2.2 g/dl (3.4-5.0) L 05/18/16 05:00 Intake & Output 05/17/16 05/18/16 05/19/16 05/20/16 23:59 23:59 23:59 23:59 Intake Total 2520 2380 1600 Output Total 2150 1900 800 Balance 370 480 800 Weight 69.264 kg 68.209 kg 69.3 kg Active Medications Generic Name Dose Route Start Last Admin Trade Name Freq PRN Reason Stop Dose Admin Acetaminophen 650 mg 05/18/16 18:01 05/20/16 08:18 Tylenol Oral Solution - NGT 650 mg Q6H PRN Administration FEVER OR PAIN Acetaminophen 650 mg 05/18/16 18:24 05/19/16 22:07 Tylenol - PO 650 mg Q6H PRN Administration FEVER OR PAIN Albuterol Sulfate 1 amp 05/18/16 18:24 05/19/16 09:16 Ventolin 0.083% Nebulizer Soln - NEB 1 amp Q4H PRN Administration SHORT OF BREATH/WHEEZING Amino Acids 30 ml 05/19/16 10:00 05/20/16 10:04 Prosource No Carb Liquid Pkt NGT 30 ml DAILY CATHERINE Administration Enoxaparin Sodium 40 mg 05/19/16 10:00 05/20/16 10:04 Lovenox - SQ 40 mg DAILY [facility]ERINE Administration Pantoprazole Sodium 100 mls @ 200 mls/hr 05/18/16 22:00 05/20/16 10:05 Protonix 40mg Ivpb (Pre-Docked) IVPB 200 mls/hr BID CATHERINE Administration Piperacillin Sod/Tazobactam Sod 100 mls @ 200 mls/hr 05/19/16 02:00 05/20/16 10 :05 Zosyn 4.5gm Ivpb (Pre-Docked) IVPB 200 mls/hr Q8H-IV CATHERINE Administration Protocol Lactulose 20 gm 05/18/16 18:24 Cephulac (Oral Use) PO HS PRN CONSTIPATION Levothyroxine Sodium 88 mcg 05/19/16 07:00 05/20/16 06:31 Synthroid - PO 88 mcg DAILY@0700 [facility]INE Administration Lidocaine HCl 1 applic 05/20/16 10:45 Xylocaine 5% Top. Ointment TP ONCE [facility]ATHERINE Mirtazapine 7.5 mg 05/18/16 22:00 05/19/16 21:30 Remeron - PO 7.5 mg HS CATHERINE Administration Mupirocin 1 applic 05/20/16 11:00 Bactroban 2% Ointment - TP BID [facility]ATHERINE Sodium Chloride 720 ml 05/18/16 18:24 Normal Saline - IV Q20M PRN MAP<65mm Hg OR SBP <90 ASSESSMENT/PLAN: 51 yo F h/o HTN, multiple sclerosis with quadraplegia, chronic urinary retention and chronic respiratory insufficiency, seizure disorder and hypothyroidism admitted to the ICU for baclofen toxicity vs. sepsis 2/2 UTI. Patient is trached and on venti-mask during the day and on vent at night. She had multiple admissions for MDR infections such as UTI and decubitus ulcer in the sacral. Neuro: AMS 2/2 urosepsis in the setting of deteriorating MS - Mental status now at baseline - Cont. AED and zolof - Neuro check Q2H Pulm: Chronic respiratory insufficiency 2/2 ?MS - Tolerating trach collar, back to baseline - Maintain O2 Sat. > 88% - Nebulizers PRN ID: Sepsis 2/2 UTI, Complicated vs Sacral decubitus ulcers; pneumonia - Resolved - On zosyn (Day 7) Renal/: UTI in the setting of chronic urinary retention - Maintain perera for urinary retention Heme: Macrocytic Anemia - Baseline HGB @ 8.6-10 - Transfuse if HGB < 7 Endo: Hypothyrodism and ?adrenal insufficiency - Normal TSH and free T4 - Cont. synthroid - off steroid Derm: Lower extremity purpura 2/2 drug allergy vs. skin irritation - New scaly rash - bactroban ointment BID - Local skin care and monitor FEN - IVF not indicated at this point - Cont. to monitor lytes - Tube feed perative - Prophylaxis - DVT: lovenox 40mg QD - GI: on PPI Disposition - Barium swallow study today * if no silent aspiration, plan discharge from ICU to home Code status - Full code Visit type - Emergency Visit Emergency Visit: No - New Patient This patient is new to me today: No - Critical Care Critical Care patient: Yes Total Critical Care Time (in minutes): 35 Critical Care Statement: The care of this patient involved high complexity decision making to prevent further life threatening deterioration of the patient 's condition and/or to evalute & treat vital organ system(s) failure or risk of failure.
--- NOTE | 2016-05-20 13:16 | PN ---
Teaching Attending Note Name of Resident: Mickey Mandel ATTENDING PHYSICIAN STATEMENT I saw and evaluated the patient. I reviewed the resident's note and discussed the case with the resident. I agree with the resident's findings and plan as documented. SUBJECTIVE: Patient seen and examined in the ICU. Awake and alert on Trach collar. Remains afebrile. Intake & Output 05/17/16 05/18/16 05/19/16 05/20/16 23:59 23:59 23:59 23:59 Intake Total 2520 2380 1600 Output Total 2150 1900 800 Balance 370 480 800 Weight 152 lb 11.2 oz 150 lb 6 oz 152 lb 12.485 oz Last Vital Signs Temp Pulse Resp BP Pulse Ox 98.1 F 81 16 127/61 95 05/20/16 08:00 05/20/16 11:56 05/20/16 11:56 05/20/16 11:56 05/20/16 11:28 Active Medications Acetaminophen (Tylenol Oral Solution -) 650 mg NGT Q6H PRN PRN Reason: FEVER OR PAIN Last Admin: 05/20/16 08:18 Dose: 650 mg Acetaminophen (Tylenol -) 650 mg PO Q6H PRN PRN Reason: FEVER OR PAIN Last Admin: 05/19/16 22:07 Dose: 650 mg Albuterol Sulfate (Ventolin 0.083% Nebulizer Soln -) 1 amp NEB Q4H PRN PRN Reason: SHORT OF BREATH/WHEEZING Last Admin: 05/19/16 09:16 Dose: 1 amp Amino Acids (Prosource No Carb Liquid Pkt) 30 ml NGT DAILY [facility] Last Admin: 05/20/16 10:04 Dose: 30 ml Enoxaparin Sodium (Lovenox -) 40 mg SQ DAILY [facility] Last Admin: 05/20/16 10:04 Dose: 40 mg Pantoprazole Sodium (Protonix 40mg Ivpb (Pre-Docked)) 100 mls @ 200 mls/hr IVPB BID [facility] Last Admin: 05/20/16 10:05 Dose: 200 mls/hr Piperacillin Sod/Tazobactam Sod (Zosyn 4.5gm Ivpb (Pre-Docked)) 100 mls @ 200 mls/hr IVPB Q8H-IV [facility] PRN Reason: Protocol Last Admin: 05/20/16 10:05 Dose: 200 mls/hr Lactulose (Cephulac (Oral Use)) 20 gm PO HS PRN PRN Reason: CONSTIPATION Levothyroxine Sodium (Synthroid -) 88 mcg PO DAILY@0700 [facility] Last Admin: 05/20/16 06:31 Dose: 88 mcg Lidocaine HCl (Xylocaine 5% Top. Ointment) 1 applic TP ONCE [facility] Mirtazapine (Remeron -) 7.5 mg PO HS [facility] Last Admin: 05/19/16 21:30 Dose: 7.5 mg Mupirocin (Bactroban 2% Ointment -) 1 applic TP BID [facility] Sodium Chloride (Normal Saline -) 720 ml IV Q20M PRN PRN Reason: MAP<65mm Hg OR SBP <90 Gen:awake, alert, Trach Heart: RRR Lung: decreased breath sounds at the bases Abd: soft, nontender Ext: no edema Laboratory Results - last 24 hr 05/20/16 05/20/16 05:10 05:10 WBC 6.1 RBC 2.85 L Hgb 8.9 L Hct 26.4 L MCV 92.7 MCHC 33.8 RDW 17.3 H Plt Count 501 H MPV 8.0 Neutrophils % 53.4 Lymphocytes % 26.8 D Monocytes % 14.0 H Eosinophils % 4.7 H Basophils % 1.1 Sodium 138 Potassium 4.4 Chloride 100 Carbon Dioxide 32 Anion Gap 6 L BUN 26 H Creatinine 0.4 L Random Glucose 136 H Calcium 8.3 L Phosphorus 2.5 Magnesium 2.0 ASSESSMENT AND PLAN: UTI Sacral Decubitus Ulcer Pneumonia Septic Shock resolving Altered Mental Status from above improving Multiple Sclerosis Hypothyroidism Adrenal Insufficiency - ABX per ID - Trach collar as tolerated / vent support at night - inhaled bronchodilators - O2 to keep SpO2 >90% - DVT/GI prophylaxis - Vent floor Dr Fox
[2016-05-20] MEDS ORDERED: LIDOCAINE HCL 2% JELLY 10 ML CARTRIDGE UR ONE (14:16)
[2016-05-20] MEDS ORDERED: LIDOCAINE HCL 2% 100 MG/5 ML DISP.SYRIN ONE (14:49)
[2016-05-20] MEDS ORDERED: ACETAMINOPHEN 650 MG/20.3 ML ORAL SOLUTION (CUPS) NGT PRN (17:40)
[2016-05-20] MEDS ORDERED: SODIUM CHLORIDE 0.9% 1000 ML INFUS.BAG IV PRN (17:40)
[2016-05-20] MEDS ORDERED: ACETAMINOPHEN 325 MG TABLET (FP) PO PRN (17:40)
[2016-05-20] MEDS ORDERED: LACTULOSE 20 GM/30 ML UDC (FOR ORAL USE ONLY) PO PRN (17:40)
[2016-05-20] MEDS: MIRTAZAPINE 15 MG TABLET (FP) PO SCH (21:49)
[2016-05-20] MEDS: MUPIROCIN 2% TOPICAL OINTMENT 22 GM TUBE TP SCH (23:00)
[2016-05-21] MEDS: PIPERACILLIN/TAZOB 4.5 GM 100 ML IVPB SCH ×2 (02:16→09:57)
[2016-05-21] MEDS: LEVOTHYROXINE NA 88 MCG TABLET (FP) PO SCH (06:33)
[2016-05-21] MEDS: ALBUTEROL SO4 0.083% IH SOL 2.5 MG/3 ML VIAL.NEB. NEB PRN ×3 (09:21→23:03)
[2016-05-21] MEDS: AMINO ACIDS/PROTEIN HYDROLYS 30 ML LIQUID.PKT NGT SCH (09:57)
[2016-05-21] MEDS: ENOXAPARIN NA (PORCINE) 40 MG/0.4 ML DISP.SYRIN SQ SCH (10:15)
[2016-05-21] MEDS: MUPIROCIN 2% TOPICAL OINTMENT 22 GM TUBE TP SCH ×3 (10:15→22:18)
[2016-05-21] MEDS: PANTOPRAZOLE SODIUM 100 ML IVPB SCH (10:20)
--- NOTE | 2016-05-21 11:51 | PN ---
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 (short form) - Note 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: Renal Followup for Hyponatremia Pt seen and examined at the bedside awake and alert speaking with speaking valve no acute complaints want to go home Vital Signs Temperature 99.4 F 05/21/16 09:48 Pulse Rate 114 H 05/21/16 09:48 Respiratory Rate 24 05/21/16 09:48 Blood Pressure 143/68 05/21/16 09:48 O2 Sat by Pulse Oximetry (%) 94 L 05/21/16 09:00 Gen: Awake and alert, NAD HEENT: Trach in place CVS: RRR, No M/R Lungs: Dec BS Abd: Soft NT/ND Ext: no edema, clubbing or cyanosis : perera in place CBC, BMP 05/20/16 05:10 05/20/16 05:10 Laboratory Tests 05/20/16 05:10 Calcium 8.3 L Phosphorus 2.5 Magnesium 2.0 Current Medications Acetaminophen (Tylenol -) 650 mg PO Q6H PRN PRN Reason: FEVER OR PAIN Last Admin: 05/20/16 23:45 Dose: 650 mg Acetaminophen (Tylenol Oral Solution -) 650 mg NGT Q6H PRN PRN Reason: FEVER OR PAIN Albuterol Sulfate (Ventolin 0.083% Nebulizer Soln -) 1 amp NEB Q4H PRN PRN Reason: SHORT OF BREATH/WHEEZING Last Admin: 05/21/16 09:21 Dose: 1 amp Amino Acids (Prosource No Carb Liquid Pkt) 30 ml NGT DAILY [facility] Last Admin: 05/21/16 09:57 Dose: Not Given Enoxaparin Sodium (Lovenox -) 40 mg SQ DAILY [facility] Pantoprazole Sodium (Protonix 40mg Ivpb (Pre-Docked)) 100 mls @ 200 mls/hr IVPB BID [facility] Last Admin: 05/20/16 21:47 Dose: 200 mls/hr Piperacillin Sod/Tazobactam Sod (Zosyn 4.5gm Ivpb (Pre-Docked)) 100 mls @ 200 mls/hr IVPB Q8H-IV [facility] PRN Reason: Protocol Last Admin: 05/21/16 09:57 Dose: Not Given Lactulose (Cephulac (Oral Use)) 20 gm PO HS PRN PRN Reason: CONSTIPATION Levothyroxine Sodium (Synthroid -) 88 mcg PO DAILY@0700 [facility] Last Admin: 05/21/16 06:33 Dose: 88 mcg Mirtazapine (Remeron -) 7.5 mg PO HS [facility] Last Admin: 05/20/16 21:49 Dose: 7.5 mg Mupirocin (Bactroban 2% Ointment -) 1 applic TP BID [facility] Last Admin: 05/20/16 23:00 Dose: 1 applic Sodium Chloride (Normal Saline -) 720 ml IV Q20M PRN PRN Reason: MAP<65mm Hg OR SBP <90 A/P 51 year old woman with PMHx of Multiple Sclerosis, Chronic Resp Failure with Trach Collar, Hx of recurrent UTI, Periods of hyponatremia presented with AMS/ Lethargy and found to have Sepsis with Hypotension and Na of 126. #Sepsis/Urinary Tract Infection/Chronic Resp Failure/Aspiration PNA hemodynamically stable and clinically improved On Zosyn, length of Abx as per ID #Electrolyte Abnormalities Electrolytes within normal limits corrected Ca is WNL oral diet as tolerated Tyshawn Doe DO
--- NOTE | 2016-05-21 12:07 | PN ---
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, WOMEN'S ACTIVITIES ADVISER - Note 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: PO diet of soft food/sips of thin liquids,initiated. Family bringing her food. Pt c/o diarrhea. Consider BRAT diet. Tolerating diet so far. All meals with PMV in place. Thick white phlegm. Selected Entries 05/20/16 05/20/16 05/20/16 02:11 06:00 08:00 Temperature 97.6 F 97.6 F 98.1 F O2 Sat by Pulse Oximetry (%) 05/20/16 05/20/16 05/20/16 15:00 18:59 23:00 Temperature 97.7 F 97.7 F 97.8 F O2 Sat by Pulse Oximetry (%) 05/21/16 05/21/16 05/21/16 00:02 06:00 09:00 Temperature 98.7 F O2 Sat by Pulse 96 94 L Oximetry (%) 05/21/16 09:48 Temperature 99.4 F O2 Sat by Pulse Oximetry (%) Laboratory Tests 05/18/16 05/19/16 05/20/16 05:00 05:05 05:10 WBC 6.0 6.5 6.1
--- NOTE | 2016-05-21 13:34 | PN ---
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 (short form) - Note 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: complaining of loose BM refusing iv zosyn since wednesday evening got two doses yesterday neeraj jarrod valve as toleralted trach collar during the day change protonix to po will send stool for c diff and discharge home in am
--- NOTE | 2016-05-21 13:37 | DS ---
Physical Examination Vital Signs: Vital Signs Temperature 99.4 F 05/21/16 09:48 Pulse Rate 114 H 05/21/16 09:48 Respiratory Rate 24 05/21/16 09:48 Blood Pressure 143/68 05/21/16 09:48 O2 Sat by Pulse Oximetry (%) 94 L 05/21/16 09:00 Constitutional: Yes: Calm Neck: Yes: Other (trach) Cardiovascular: Yes: Regular Rate and Rhythm, S1, S2 Respiratory: Yes: CTA Bilaterally, Mechanically Ventilated Gastrointestinal: Yes: Normal Bowel Sounds, Soft Edema: No Wound/Incision: Yes: Other (sacral decubitus) Neurological: Yes: Alert, Oriented, Pre-Existing Deficit Labs: CBC, BMP 05/20/16 05:10 05/20/16 05:10 Discharge Summary Reason For Visit: AMS,HYPOTENSION Current Active Problems Altered mental status (Acute) Hyponatremia (Acute) Hypotension (Acute) Hypothermia (Acute) Multiple drug resistant organism (MDRO) culture positive (Acute) Multiple sclerosis (Acute) Presence of intrathecal baclofen pump (Acute) Respiratory failure (Acute) Sepsis syndrome (Acute) Hospital Course: Pt is a 51yr old woman with PMHx of HTN, MS with associated quadraplegia, chronic respiratory insufficiency with trach and vent use overnight, seizure disorder, hypothyroidism and multiple admissions for MDR infections (UTI, sacral wound). Pt presents to the ER with CC of AMS. In the ER pt with wbc 16.2 , H/H 8.3*25.4, Sodium 127, BUN/Cr 29/1.0 and glucose 64, +UA. Concern for Baclofen toxicity, serum level sent and pending. Pt give fluid bolus x2, started on Taylor and Vanc and admitted to the ICU for further management. Upon assessment pt is lethargic but able to respond to some questions. Pt denies chest pain/headache/sob/n/v/d. Pt borderline hypotensive to 60s on dopamine for hemodynamic support, HR 70s, sinus on tele, hypothermic, started on kinsey hugger. sepsis - septic shock, leukocytosis improved drop in hgb got prbc icu steroids vanco meropenem required dopamine as well stoped vancomycin conitnued meropenem and compelted course then got fever again possible aspiration seen by junior faulkner on zosyn and feeds stopped by mouth ngtube placed got feeds then recovered and had MBS- soft diet thin liquids elevated HOB when feeding patient now out of icu on med surg floor sending stool o r/o c diff anemia: iron low start ferrous sulfate and vitamin C hypothyroid on synthroid MS with chronic rsp failure s/p trach _ trach collar 40% during day and passy tenzin valve as tolerated Condition: Guarded - Instructions Referrals: Anne Lopez MD [Primary Care Provider] - Disposition: HOME - Home Medications Comprehensive Discharge Medication List: Ambulatory Orders Carbamazepine [Tegretol -] 100 mg PO TID tab.chew 08/27/14 Albuterol 0.083% Nebulizer Rocio [Ventolin 0.083% Nebulizer Soln -] 1 neb NEB Q4H PRN #0 amp 10/26/14 Clonazepam [Klonopin] 0.5 mg PO DAILY 05/08/15 Hydralazine HCl [Apresoline -] 25 mg PO TID tablet 12/08/15 Amlodipine Besylate [Norvasc -] 10 mg PO HS 02/06/16 Baclofen 5 mg PO DAILY 02/06/16 Mirtazapine 7.5 mg PO DAILY 02/06/16 Pantoprazole Sodium [Protonix] 40 mg PO DAILY 02/06/16 Potassium Chloride 20 meq PO DAILY 02/06/16 Sertraline HCl [Zoloft -] 25 mg PO TID 02/06/16 Levothyroxine [Synthroid -] 88 mcg PO DAILY@0700 #30 tablet 02/14/16 Valacyclovir HCl [Valtrex -] 1,000 mg PO TID #20 tablet 04/03/16
--- NOTE | 2016-05-21 15:10 | PN ---
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, Physician History of Present Illness: Awake, alert Having loose stool No fever/ chills Breathing non-labored - Current Medication List Current Medications: Active Medications Acetaminophen (Tylenol -) 650 mg PO Q6H PRN PRN Reason: FEVER OR PAIN Last Admin: 05/20/16 23:45 Dose: 650 mg Acetaminophen (Tylenol Oral Solution -) 650 mg NGT Q6H PRN PRN Reason: FEVER OR PAIN Albuterol Sulfate (Ventolin 0.083% Nebulizer Soln -) 1 amp NEB Q4H PRN PRN Reason: SHORT OF BREATH/WHEEZING Last Admin: 05/21/16 09:21 Dose: 1 amp Amino Acids (Prosource No Carb Liquid Pkt) 30 ml NGT DAILY [facility] Last Admin: 05/21/16 09:57 Dose: Not Given Ascorbic Acid (Vitamin C -) 500 mg PO DAILY [facility] Enoxaparin Sodium (Lovenox -) 40 mg SQ DAILY [facility] Last Admin: 05/21/16 10:15 Dose: 40 mg Ferrous Sulfate (Feosol -) 325 mg PO BIDWM [facility] Levothyroxine Sodium (Synthroid -) 88 mcg PO DAILY@0700 [facility] Last Admin: 05/21/16 06:33 Dose: 88 mcg Mirtazapine (Remeron -) 7.5 mg PO HS [facility] Last Admin: 05/20/16 21:49 Dose: 7.5 mg Mupirocin (Bactroban 2% Ointment -) 1 applic TP BID [facility] Last Admin: 05/21/16 13:26 Dose: 1 applic Pantoprazole Sodium (Protonix -) 40 mg PO DAILY [facility] - Objective Vital Signs: Vital Signs Temperature 98.6 F 05/21/16 14:46 Pulse Rate 106 H 05/21/16 14:46 Respiratory Rate 14 05/21/16 14:46 Blood Pressure 120/80 05/21/16 14:46 O2 Sat by Pulse Oximetry (%) 95 05/21/16 12:35 Constitutional: Yes: No Distress Eyes: Yes: Conjunctiva Clear Cardiovascular: Yes: Regular Rate and Rhythm, S1, S2 Respiratory: Yes: CTA Bilaterally, Diminished Gastrointestinal: Yes: Normal Bowel Sounds, Soft. No: Tenderness Edema: LLE: 1+, RLE: 1+ Labs: CBC, BMP 05/20/16 05:10 05/20/16 05:10 INR, PTT INR 1.19 (0.82-1.09) H 05/14/16 00:40 Assessment/Plan Pneumonia- improved + tracheal colonization Acinectobacter MS Neurogenic bladder D/C antibiotics, observe off
[2016-05-21] MEDS: FERROUS SO4 325 MG TABLET (FP) PO SCH (18:15)
[2016-05-21] MEDS ORDERED: PT OWN MED DRAWER 7, Y5N ONE (20:49)
[2016-05-21] MEDS: MIRTAZAPINE 15 MG TABLET (FP) PO SCH (22:18)
[2016-05-22] MEDS: LEVOTHYROXINE NA 88 MCG TABLET (FP) PO SCH (07:04)
[2016-05-22 08:51] LABS: CALCIUM 8.9 mg/dL (8.5-10.1); CREATININE 0.5 mg/dL (0.55-1.02); PHOSPHOROUS 3.4 mg/dL (2.5-4.9)
[2016-05-22] MEDS ORDERED: ASCORBIC ACID 500 MG TABLET (FP) PO SCH (10:00)
[2016-05-22] MEDS ORDERED: PANTOPRAZOLE 40 MG TABLET (FP) PO SCH (10:00)
[2016-05-22] MEDS: ALBUTEROL SO4 0.083% IH SOL 2.5 MG/3 ML VIAL.NEB. NEB PRN (10:15)
[2016-05-22] MEDS ORDERED: PT OWN MED DRAWER 7, Y5N ONE (10:56)
[2016-05-22] MEDS: ENOXAPARIN NA (PORCINE) 40 MG/0.4 ML DISP.SYRIN SQ SCH (11:01)
[2016-05-22] MEDS: FERROUS SO4 325 MG TABLET (FP) PO SCH ×2 (11:01→17:45)
[2016-05-22] MEDS: MUPIROCIN 2% TOPICAL OINTMENT 22 GM TUBE TP SCH (11:02)
[2016-05-22] MEDS: AMINO ACIDS/PROTEIN HYDROLYS 30 ML LIQUID.PKT NGT SCH (11:03)
--- NOTE | 2016-05-22 12:00 | PN ---
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 On trach collar. Family and drawing supervisor have been educated on swallowing precautions and swallowing compensatory techniques.
--- NOTE | 2016-05-22 12:49 | PN ---
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 (short form) - Note 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: Renal Followup for Hyponatremia Pt seen and examined at the bedside no acute complaints temp of 102 this am pt denies any fevers or chills Vital Signs Temperature 102.5 F H 05/22/16 06:00 Pulse Rate 107 H 05/22/16 10:15 Respiratory Rate 14 05/22/16 06:25 Blood Pressure 102/49 05/22/16 06:00 O2 Sat by Pulse Oximetry (%) 96 05/22/16 10:15 Intake & Output 05/19/16 05/20/16 05/21/16 05/22/16 23:59 23:59 23:59 23:59 Intake Total 2380 2104 340 120 Output Total 1900 2500 3600 200 Balance 480 -774 -0510 -80 Weight 150 lb 6 oz 152 lb 12.485 oz 151 lb 152 lb 4 oz Gen: Awake and alert, NAD HEENT: Trach in place CVS: RRR, No M/R Lungs: Dec BS Abd: Soft NT/ND Ext: no edema, clubbing or cyanosis : perera in place CBC, BMP 05/20/16 05:10 05/22/16 05:35 Laboratory Tests 05/22/16 05:35 Calcium 8.9 Phosphorus 3.4 D Magnesium 2.0 Current Medications Acetaminophen (Tylenol -) 650 mg PO Q6H PRN PRN Reason: FEVER OR PAIN Last Admin: 05/20/16 23:45 Dose: 650 mg Acetaminophen (Tylenol Oral Solution -) 650 mg NGT Q6H PRN PRN Reason: FEVER OR PAIN Albuterol Sulfate (Ventolin 0.083% Nebulizer Soln -) 1 amp NEB Q4H PRN PRN Reason: SHORT OF BREATH/WHEEZING Last Admin: 05/22/16 10:15 Dose: 1 amp Amino Acids (Prosource No Carb Liquid Pkt) 30 ml NGT DAILY [facility] Last Admin: 05/22/16 11:03 Dose: Not Given Ascorbic Acid (Vitamin C -) 500 mg PO DAILY [facility] Last Admin: 05/22/16 11:01 Dose: 500 mg Enoxaparin Sodium (Lovenox -) 40 mg SQ DAILY [facility] Last Admin: 05/22/16 11:01 Dose: 40 mg Ferrous Sulfate (Feosol -) 325 mg PO BIDWM [facility] Last Admin: 05/22/16 11:01 Dose: 325 mg Levothyroxine Sodium (Synthroid -) 88 mcg PO DAILY@0700 [facility] Last Admin: 05/22/16 07:04 Dose: 88 mcg Mirtazapine (Remeron -) 7.5 mg PO HS [facility] Last Admin: 05/21/16 22:18 Dose: 7.5 mg Mupirocin (Bactroban 2% Ointment -) 1 applic TP BID [facility] Last Admin: 05/22/16 11:02 Dose: 1 applic Pantoprazole Sodium (Protonix -) 40 mg PO DAILY [facility] Last Admin: 05/22/16 11:01 Dose: 40 mg A/P 51 year old woman with PMHx of Multiple Sclerosis, Chronic Resp Failure with Trach Collar, Hx of recurrent UTI, Periods of hyponatremia presented with AMS/ Lethargy and found to have Sepsis with Hypotension and Na of 126. #Sepsis/Urinary Tract Infection/Chronic Resp Failure/Aspiration PNA clinically improved continue trach collar as per pulmonary fever this am, repeat temps have been ok follow up ID recs #Electrolyte Abnormalities Electrolytes within normal limits corrected Ca is WNL oral diet as tolerated Tyshawn Doe DO
--- NOTE | 2016-05-22 14:41 | PN ---
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, Physician Chief Complaint: patient seen wants to go home overnight had temp stil with loose stools c diff positive - Current Medication List Current Medications: Active Medications Acetaminophen (Tylenol -) 650 mg PO Q6H PRN PRN Reason: FEVER OR PAIN Last Admin: 05/20/16 23:45 Dose: 650 mg Acetaminophen (Tylenol Oral Solution -) 650 mg NGT Q6H PRN PRN Reason: FEVER OR PAIN Albuterol Sulfate (Ventolin 0.083% Nebulizer Soln -) 1 amp NEB Q4H PRN PRN Reason: SHORT OF BREATH/WHEEZING Last Admin: 05/22/16 10:15 Dose: 1 amp Amino Acids (Prosource No Carb Liquid Pkt) 30 ml NGT DAILY [facility] Last Admin: 05/22/16 11:03 Dose: Not Given Ascorbic Acid (Vitamin C -) 500 mg PO DAILY [facility] Last Admin: 05/22/16 11:01 Dose: 500 mg Enoxaparin Sodium (Lovenox -) 40 mg SQ DAILY [facility] Last Admin: 05/22/16 11:01 Dose: 40 mg Ferrous Sulfate (Feosol -) 325 mg PO BIDWM [facility] Last Admin: 05/22/16 11:01 Dose: 325 mg Levothyroxine Sodium (Synthroid -) 88 mcg PO DAILY@0700 [facility] Last Admin: 05/22/16 07:04 Dose: 88 mcg Mirtazapine (Remeron -) 7.5 mg PO HS [facility] Last Admin: 05/21/16 22:18 Dose: 7.5 mg Mupirocin (Bactroban 2% Ointment -) 1 applic TP BID [facility] Last Admin: 05/22/16 11:02 Dose: 1 applic Pantoprazole Sodium (Protonix -) 40 mg PO DAILY [facility] Last Admin: 05/22/16 11:01 Dose: 40 mg - Objective Vital Signs: Vital Signs Temperature 98.8 F 05/22/16 12:00 Pulse Rate 107 H 05/22/16 10:15 Respiratory Rate 16 05/22/16 10:00 Blood Pressure 121/78 05/22/16 10:00 O2 Sat by Pulse Oximetry (%) 96 05/22/16 10:15 Constitutional: Yes: Calm Neck: Yes: Other (trach) Cardiovascular: Yes: S1, S2 Respiratory: Yes: CTA Bilaterally Gastrointestinal: Yes: Normal Bowel Sounds, Soft Edema: No Neurological: Yes: Alert, Oriented, Pre-Existing Deficit Labs: CBC, BMP 05/20/16 05:10 05/22/16 05:35 INR, PTT INR 1.19 (0.82-1.09) H 05/14/16 00:40 Assessment/Plan now with c diff start vancomycin solution 125mg po q6hr for 10days dc home chronic resp failure sec to MS s/p trach on vent quadreplegic sacral wounds frequent turn postion nutrition sepsis. s/p septic shock off pressors stopped abx stopped steroids hypothyroid on synthroid gi dvt ppx on med surg floor labs improved no more fever
--- NOTE | 2016-05-22 15:35 | PN ---
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, Physician History of Present Illness: PULMONARY ALERT,ON TRACH COLLAR,MILD CONGESTION - Current Medication List Current Medications: Active Medications Acetaminophen (Tylenol -) 650 mg PO Q6H PRN PRN Reason: FEVER OR PAIN Last Admin: 05/20/16 23:45 Dose: 650 mg Acetaminophen (Tylenol Oral Solution -) 650 mg NGT Q6H PRN PRN Reason: FEVER OR PAIN Albuterol Sulfate (Ventolin 0.083% Nebulizer Soln -) 1 amp NEB Q4H PRN PRN Reason: SHORT OF BREATH/WHEEZING Last Admin: 05/22/16 10:15 Dose: 1 amp Amino Acids (Prosource No Carb Liquid Pkt) 30 ml NGT DAILY [facility] Last Admin: 05/22/16 11:03 Dose: Not Given Ascorbic Acid (Vitamin C -) 500 mg PO DAILY [facility] Last Admin: 05/22/16 11:01 Dose: 500 mg Enoxaparin Sodium (Lovenox -) 40 mg SQ DAILY [facility] Last Admin: 05/22/16 11:01 Dose: 40 mg Ferrous Sulfate (Feosol -) 325 mg PO BIDWM [facility] Last Admin: 05/22/16 11:01 Dose: 325 mg Levothyroxine Sodium (Synthroid -) 88 mcg PO DAILY@0700 [facility] Last Admin: 05/22/16 07:04 Dose: 88 mcg Mirtazapine (Remeron -) 7.5 mg PO HS [facility] Last Admin: 05/21/16 22:18 Dose: 7.5 mg Mupirocin (Bactroban 2% Ointment -) 1 applic TP BID [facility] Last Admin: 05/22/16 11:02 Dose: 1 applic Pantoprazole Sodium (Protonix -) 40 mg PO DAILY [facility] Last Admin: 05/22/16 11:01 Dose: 40 mg Vancomycin HCl (Vancomycin Oral Solution) 125 mg PO Q6HPO [facility] - Objective Vital Signs: Vital Signs Temperature 98.7 F 05/22/16 14:43 Pulse Rate 99 H 05/22/16 14:43 Respiratory Rate 17 05/22/16 14:43 Blood Pressure 155/74 05/22/16 14:43 O2 Sat by Pulse Oximetry (%) 96 05/22/16 10:15 Constitutional: Yes: Well Nourished, Calm Eyes: Yes: WNL HENT: Yes: WNL Neck: Yes: WNL Cardiovascular: Yes: Regular Rate and Rhythm, S1, S2 Respiratory: Yes: Rhonchi Gastrointestinal: Yes: Normal Bowel Sounds, Soft Extremities: Yes: WNL Edema: No Labs: CBC, BMP 05/20/16 05:10 05/22/16 05:35 INR, PTT INR 1.19 (0.82-1.09) H 05/14/16 00:40 Assessment/Plan ASSESSMENT AND PLAN: UTI Sacral Decubitus Ulcer Pneumonia Septic Shock resolved Altered Mental Status from above improving Multiple Sclerosis Hypothyroidism Adrenal Insufficiency - Trach collar as tolerated / vent support at night - inhaled bronchodilators - O2 to keep SpO2 >90% - DVT/GI prophylaxis DR ELDER
[2016-05-22] MEDS ORDERED: VANCOMYCIN 250 MG/5 ML ORAL SOLUTION PO SCH (18:00)
[2016-05-22 19:11] VITALS: BP 146/76; PULSE 92; TEMP 97.7
== END 2016-05-22 19:29 | disposition home or self-care (01) | DRG 870 ==
LOC: JER 11:38 → JERBED 14:54 → JICU 05-05 00:24 → J5S 05-20 17:12
PROVIDERS: ADMIT Family Medicine; ATTEND Family Medicine
PROC: 5A1955Z Respiratory Ventilation, Greater than 96 Consecutive Hours (ICD-10-PCS; principal; 2016-05-04)
PROC: 05HM33Z Insertion of Infusion Device into Right Internal Jugular Vein, Percutaneous Approach (ICD-10-PCS; 2016-05-05)
PROC: B543ZZA Ultrasonography of Right Jugular Veins, Guidance (ICD-10-PCS; 2016-05-05)
PROC: 30233N1 Transfusion of Nonautologous Red Blood Cells into Peripheral Vein, Percutaneous Approach (ICD-10-PCS; 2016-05-11)
PROC: 0B21XFZ Change Tracheostomy Device in Trachea, External Approach (ICD-10-PCS; 2016-05-13)
PROC: 3E0G76Z Introduction of Nutritional Substance into Upper GI, Via Natural or Artificial Opening (ICD-10-PCS; 2016-05-13)
PROC: 0DH67UZ Insertion of Feeding Device into Stomach, Via Natural or Artificial Opening (ICD-10-PCS; 2016-05-13)
DX: A41.9 Sepsis, unspecified organism (principal); J96.20 Acute and chronic respiratory failure, unspecified whether with hypoxia or hypercapnia; R53.2 Functional quadriplegia; J18.9 Pneumonia, unspecified organism; G92 Toxic encephalopathy; E87.1 Hypo-osmolality and hyponatremia; N39.0 Urinary tract infection, site not specified; E27.40 Unspecified adrenocortical insufficiency; J98.11 Atelectasis; R68.0 Hypothermia, not associated with low environmental temperature; G35 Multiple sclerosis; N31.8 Other neuromuscular dysfunction of bladder; G50.0 Trigeminal neuralgia; K59.00 Constipation, unspecified; Z93.0 Tracheostomy status; I10 Essential (primary) hypertension; E78.5 Hyperlipidemia, unspecified; D64.9 Anemia, unspecified; Z16.24 Resistance to multiple antibiotics; G40.909 Epilepsy, unspecified, not intractable, without status epilepticus; R21 Rash and other nonspecific skin eruption; E87.5 Hyperkalemia; L89.150 Pressure ulcer of sacral region, unstageable
CPT/HCPCS: 36415; 36430; 36511; 36600; 71010-TC; 74230-TC; 76705-TC; 80048; 80053; 81003; 81015; 82272; 82533; 82550; 82728; 82803; 82947; 83540; 83550; 83605; 83735; 83880; 83930; 83935; 84100; 84300; 84439; 84443; 84484; 85025; 85027; 85610; 85730; 86140; 86850; 86900; 86901; 86922; 87040; 87070; 87086; 87186; 87205; 87254; 87324; 87449; 87804; 87899; 92611-GN; 93005; 93010; 94002; 94640; 94667; 97161-GP; 99285-25; G0480; J8540; P9038; P9058

== ENCOUNTER 2016-06-22 02:02 | Inpatient (IN) | payer OTHER ==
[2016-06-22 02:35] VITALS: BMI 27.8
[2016-06-22 02:38] LABS: URINE APPEARANCE SLCLOUDY; URINE BILIRUBIN NEGATIVE (NEGATIVE); URINE BLOOD NEGATIVE (NEGATIVE); URINE COLOR LTYELLOW; URINE GLUCOSE (UA) NEGATIVE (NEGATIVE); URINE KETONE TRACE (NEGATIVE); URINE NITRITE POSITIVE (NEGATIVE); URINE UROBILINOGEN NEGATIVE E.U./dl (0.2-1.0)
[2016-06-22 02:46] LABS: URINE LEUK ESTERASE TRACE (NEGATIVE); URINE PROTEIN 1+ (NEGATIVE)
[2016-06-22 02:48] LABS: URINE BACTERIA MODERATE /hpf (NONE SEEN); URINE MUCUS RARE; URINE RBC 2 /hpf (0-3); URINE WBC 1 /hpf (3-5)
[2016-06-22 03:45] LABS: BASOPHIL 0.2 % (0-2.0); EOSINOPHIL 3.5 % (0-4.5); MCH 30.7 pg (25.7-33.7); MCHC 33.9 g/dl (32.0-36.0); MEAN CELL VOLUME 90.4 fl (80-96); MEAN PLT VOLUME 8.5 fl (7.5-11.1); NEUTROPHILS 76.5 % (42.8-82.8); PLATELET COUNT 175 K/MM3 (134-434); RDW 18.6 % (11.6-15.6); WHITE BLOOD COUNT 6.7 K/mm3 (4.0-10.0)
[2016-06-22 04:29] LABS: INR 1.05 (0.82-1.09); PROTHROMBIN TIME (PATIENT) 11.6 SEC (9.98-11.88)
[2016-06-22 04:39] LABS: ALBUMIN 2.9 g/dl (3.4-5.0); ANION GAP 10 (8-16); BILIRUBIN,TOTAL 0.2 mg/dL (0.2-1.0); CALCIUM 8.8 mg/dL (8.5-10.1); CO2 26 mmol/L (21-32); COCKROFT - GAULT 134.6315; CREATININE 0.7 mg/dL (0.55-1.02); GLUCOSE,RANDOM 75 mg/dL (74-106); SGOT/AST 28 U/L (15-37); SGPT/ALT 33 U/L (12-78); TOT PROT 7.7 g/dl (6.4-8.2)
[2016-06-22 04:42] LABS: ALK PHOS 208 U/L (45-117); TROPONIN I < 0.02 ng/ml (0.00-0.05)
[2016-06-22] MEDS ORDERED: SODIUM CHLORIDE 0.9% 1000 ML INFUS.BAG IV ONE (04:47)
[2016-06-22] MEDS ORDERED: CEFTRIAXONE 1 GM in DEXTROSE 5%-WATER - 50 ML IVPB ONE (04:51)
[2016-06-22] MEDS ORDERED: cefTRIAXone SODIUM 1 GM VIAL ONE (04:59)
--- NOTE | 2016-06-22 05:14 | PDOC ---
History of Present Illness - General Chief Complaint: Altered Mental Status Stated Complaint: BLOOD PRESSURE PROBLEM Time Seen by Provider: 06/22/16 02:52 History Source: Patient Exam Limitations: No Limitations - History of Present Illness Initial Comments: 06/22/16 04:53 Patient is a 51 year old female with h/o MS, quadaplegic, tracheostomy BIBA with mother and aide for c/o confusion. Per mother patient is not making sense , got up and ask to have the covers removed but she did not have the covers on. She was seen in the Doctor's office 1 week ago lab work done, found to have a UTI but decision was made not to treat. Patient progressively worsened and so 3 days ago call the pmd and was started on Bactrim. Tonight seemed to be more confused and so brought to the ED for eval. PMD: Dr. Wiley ALL: chlorol hydrate, azathioprine, GENERAL/CONSTITUTIONAL: [No fever or chills. No weakness. No weight change.] HEAD, EYES, EARS, NOSE AND THROAT: [No change in vision. No ear pain or discharge. No sore throat.] CARDIOVASCULAR: [No chest pain or shortness of breath.] RESPIRATORY: [No cough, wheezing, or hemoptysis.] GASTROINTESTINAL: [No nausea, vomiting, diarrhea or constipation. No rectal bleeding.] GENITOURINARY: [No dysuria, frequency, or change in urination.] MUSCULOSKELETAL: (+)atrophy upper and lower ext, (+) joint or muscle swelling or pain. ] SKIN AND BREASTS: [No rash or easy bruising.] NEUROLOGIC: (+) quadriplegia, No headache, vertigo, loss of consciousness, or loss of sensation.] PSYCHIATRIC: [No depression or anxiety.] ENDOCRINE: [No increased thirst. No abnormal weight change.] HEMATOLOGIC/LYMPHATIC: [No anemia, easy bleeding, or history of blood clots.] ALLERGIC/IMMUNOLOGIC: [No hives or skin allergy. No latex allergy. GENERAL: [The patient is awake, alert, and fully oriented, in no acute distress. ] HEAD: [Normal with no signs of trauma.] EYES: [Pupils equal, round and reactive to light, extraocular movements intact, sclera anicteric, conjunctiva clear.] ENT: [Ears normal, nares patent, oropharynx clear without exudates. Moist mucous membranes.] NECK: [Normal range of motion, supple without lymphadenopathy, JVD, or masses, ( +) trach collor.] LUNGS: [Breath sounds equal, clear to auscultation bilaterally. No wheezes, and no crackles.] HEART: [Regular rate and rhythm, normal S1 and S2 without murmur, rub.] ABDOMEN: [Soft, nontender, normoactive bowel sounds. No guarding, no rebound. No masses.] EXTREMITIES: (+) quadriplegia, decreased ROM all extremities, no edema. No clubbing or cyanosis. No cords, erythema, or tenderness.] NEUROLOGICAL: alert and oriented, Normal speech PSYCH: [Normal mood, normal affect.] SKIN: [Cool, Dry, normal turgor, no rashes or lesions noted.] Past History - Past Medical History Allergies/Adverse Reactions: Allergies Allergy/AdvReac Type Severity Reaction Status Date / Time chloral hydrate Allergy Intermediate Rash Verified 06/22/16 02:24 [Chloral Hydrate] azathioprine [From Imuran] Allergy Rash Verified 06/22/16 02:24 azathioprine sodium Allergy Rash Verified 06/22/16 02:24 [From Imuran] adhesive tape AdvReac Severe sensitivity Verified 06/22/16 02:24 to glue adhesive AdvReac Unknown Verified 06/22/16 02:24 Home Medications: Ambulatory Orders Carbamazepine [Tegretol -] 100 mg PO TID tab.chew 08/27/14 Albuterol 0.083% Nebulizer Rocio [Ventolin 0.083% Nebulizer Soln -] 1 neb NEB Q4H PRN #0 amp 10/26/14 Clonazepam [Klonopin] 0.5 mg PO DAILY 05/08/15 Hydralazine HCl [Apresoline -] 25 mg PO TID tablet 12/08/15 Amlodipine Besylate [Norvasc -] 10 mg PO HS 02/06/16 Baclofen 0 mg IVSS ASDIR 02/06/16 Mirtazapine 7.5 mg PO DAILY 02/06/16 Pantoprazole Sodium [Protonix] 40 mg PO DAILY 02/06/16 Levothyroxine [Synthroid -] 88 mcg PO DAILY@0700 #30 tablet 02/14/16 Ferrous Sulfate [Feosol] 325 mg PO BIDWM #30 bottle MDD 2 05/21/16 Anemia: No Asthma: No Cancer: No CVA: No COPD: No CHF: No Dementia: (M.S,TRIG.NEUROLAGIA) Diabetes: No GI Disorders: Yes Disorders: Yes (baclofen implant) HTN: Yes Hypercholesterolemia: No Liver Disease: No Suicide Attempt (Hx): Yes Seizures: Yes Thyroid Disease: No - Surgical History Abdominal Surgery: No Appendectomy: No Cardiac Surgery: No Cholecystectomy: No GI Surgery: (BACLOFEN IMPLANT) Lung Surgery: Yes (TRACH) Neurologic Surgery: No Orthopedic Surgery: No - Immunization History Immunization Up to Date: Yes - Psycho/Social/Smoking Cessation Hx Anxiety: No Suicidal Ideation: No Smoking Status: No Smoking History: Never smoked Have you smoked in the past 12 months: No Number of Cigarettes Smoked Daily: 0 Cigars Per Day: 0 Hx Alcohol Use: No Drug/Substance Use Hx: No Substance Use Type: None Hx Substance Use Treatment: No *Physical Exam - Vital Signs Last Vital Signs Temp Pulse Resp BP Pulse Ox 57 L 14 145/66 99 06/22/16 04:48 06/22/16 04:48 06/22/16 04:48 06/22/16 04:48 ED Treatment Course - LABORATORY CBC & Chemistry Diagram: 06/22/16 03:40 06/22/16 03:40 - ADDITIONAL ORDERS Additional order review: Laboratory Results 06/22/16 06/22/16 06/22/16 03:40 03:40 02:29 INR 1.05 Sodium 124 L* D Potassium 5.0 Chloride 88 L D Carbon Dioxide 26 Anion Gap 10 BUN 14 Creatinine 0.7 D Creat Clearance w eGFR > 60 Random Glucose 75 Calcium 8.8 Total Bilirubin 0.2 D AST 28 D ALT 33 D Alkaline Phosphatase 208 H D Creatine Kinase 63 Troponin I < 0.02 Total Protein 7.7 D Albumin 2.9 L D Urine Color Ltyellow Urine Appearance Slcloudy Urine pH 7.0 Ur Specific [place] 1.014 Urine Protein 1+ H Urine Glucose (UA) Negative Urine Ketones Trace H Urine Blood Negative Urine Nitrite Positive Urine Bilirubin Negative Urine Urobilinogen Negative Ur Leukocyte Esterase Trace H Urine RBC 2 Urine WBC 1 Ur Epithelial Cells Rare Urine Bacteria Moderate Urine Mucus Rare 06/22/16 03:40 RBC 3.43 L D MCV 90.4 MCHC 33.9 RDW 18.6 H MPV 8.5 Neutrophils % 76.5 D Lymphocytes % 15.2 D Monocytes % 4.6 Eosinophils % 3.5 Basophils % 0.2 - RADIOLOGY Radiology Studies Ordered: Category Date Time Status HEAD CT WITHOUT CONTRAST [CT] Stat CT Scan 06/22/16 04:48 Ordered CHEST X-RAY PORTABLE* [RAD] Stat Radiology 06/22/16 03:10 Taken Medical Decision Making - Medical Decision Making 06/22/16 05:14 Patient is a 51 year old female with h/o MS, quadaplegic, tracheostomy BIBA with mother and aide for c/o confusion progressively worsening over the past week, treated for UTI with bactrim, but not improved. will get labs r/o organic , infection, will get labs, ct head, Labs reviewed noted to have Na+ 124 will give IVF UA (+) nitrites will given Rocephin 1 gm IV EKG SR rate 57, NAD, (+) ST-T wave changes called ICU consult [phone] Wiley for admission 06/22/16 06:25 Patient Name: Geetha Wood THIS IS A PRELIMINARY REPORT FROM [facility] DATE OF SERVICE: 2016-06-22 04:50:57.0 IMAGES: 415 EXAM: HEAD CT WITHOUT CONTRAST HISTORY:Confusion COMPARISON: None. TECHNIQUE: CT Head with serial axial images extending from the vertex to the base of skull was performed without vascular contrast. FINDINGS:Brain parenchyma is normal in attenuation with no mass or hematoma. There is no midline shift. Tucker and white matter differentiation is normal. Ventricles are normal. Sulci and extra- axial CSF spaces are normal. There is a right parafalcine dural calcification Intracranial vascular structures are normal in attenuation. There is no calvarial fracture. Paranasal sinuses are normally aerated. IMPRESSION: No fracture or intracranial bleed. No acute findings THIS DOCUMENT HAS BEEN ELECTRONICALLY SIGNED Jose Crow MD 06/22/2016 05:34 EST Alethea Please call [facility] [phone] ([phone]) with questions. == End of Report Content Case d/w Dr. 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
[2016-06-22] MEDS ORDERED: carBAMazepine 100 MG TAB.CHEW PO ONE (07:29)
[2016-06-22] MEDS ORDERED: carBAMazepine 200 MG TABLET ONE ×2 (07:30→12:29)
--- NOTE | 2016-06-22 08:35 | EKG ---
Test Reason : Blood Pressure : / mmHG Vent. Rate : 057 BPM Atrial Rate : 057 BPM P-R Int : 168 ms QRS Dur : 110 ms QT Int : 410 ms P-R-T Axes : 041 016 039 degrees QTc Int : 399 ms SINUS BRADYCARDIA OTHERWISE NORMAL ECG WHEN COMPARED WITH ECG OF 04-MAY-2016 12:19, SINUS RHYTHM HAS REPLACED JUNCTIONAL RHYTHM Confirmed by DIONICIO APPLE MD ([id number]) on 06/22/2016 8:35:03 AM Referred By: Confirmed By:DIONICIO APPLE MD
--- NOTE | 2016-06-22 10:12 | PDOC ---
[id number] 99 06/22/16 07:50 06/22/16 07:50 06/22/16 07:50 06/22/16 07:50 - Physical Exam General Appearance: Yes: Nourished, Appropriately Dressed, Apparent Distress, Moderate Distress HEENT: positive: ANDRIY Neck: positive: Supple, Other (trach intact ). negative: Tender Respiratory/Chest: positive: Lungs Clear Cardiovascular: positive: Regular Rhythm Gastrointestinal/Abdominal: positive: Soft. 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 negative: Motor Strength 07/10 ED Treatment Course - LABORATORY CBC & Chemistry Diagram: 06/22/16 10:30 06/22/16 10:30 - ADDITIONAL ORDERS Additional order review: Laboratory Results 06/22/16 06/22/16 06/22/16 04:47 03:40 03:40 INR 1.05 Sodium 124 L* D Potassium 5.0 Chloride 88 L D Carbon Dioxide 26 Anion Gap 10 BUN 14 Creatinine 0.7 D Creat Clearance w eGFR > 60 Random Glucose 75 Lactic Acid 0.353 L Calcium 8.8 Total Bilirubin 0.2 D AST 28 D ALT 33 D Alkaline Phosphatase 208 H D Creatine Kinase 63 Troponin I < 0.02 Total Protein 7.7 D Albumin 2.9 L D Urine Color Urine Appearance Urine pH Ur Specific [place] Urine Protein Urine Glucose (UA) Urine Ketones Urine Blood Urine Nitrite Urine Bilirubin Urine Urobilinogen Ur Leukocyte Esterase Urine RBC Urine WBC Ur Epithelial Cells Urine Bacteria Urine Mucus 06/22/16 02:29 INR Sodium Potassium Chloride Carbon Dioxide Anion Gap BUN Creatinine Creat Clearance w eGFR Random Glucose Lactic Acid Calcium Total Bilirubin AST ALT Alkaline Phosphatase Creatine Kinase Troponin I Total Protein Albumin Urine Color Ltyellow Urine Appearance Slcloudy Urine pH 7.0 Ur Specific [place] 1.014 Urine Protein 1+ H Urine Glucose (UA) Negative Urine Ketones Trace H Urine Blood Negative Urine Nitrite Positive Urine Bilirubin Negative Urine Urobilinogen Negative Ur Leukocyte Esterase Trace H Urine RBC 2 Urine WBC 1 Ur Epithelial Cells Rare Urine Bacteria Moderate Urine Mucus Rare 06/22/16 03:40 RBC 3.43 L D MCV 90.4 MCHC 33.9 RDW 18.6 H MPV 8.5 Neutrophils % 76.5 D Lymphocytes % 15.2 D Monocytes % 4.6 Eosinophils % 3.5 Basophils % 0.2 - Medications Given in the ED: ED Medications Discontinued Medications Generic Name Dose Route Start Last Admin Trade Name Carmen PRN Reason Stop Dose Admin Carbamazepine 100 mg 06/22/16 07:29 06/22/16 07:49 Tegretol - PO 06/22/16 07:30 100 mg ONCE ONE Administration Ceftriaxone Sodium 1 gm/ 50 mls @ 100 mls/hr 06/22/16 04:51 06/22/16 05:06 Dextrose IVPB 06/22/16 05:20 100 mls/hr ONCE ONE Administration Sodium Chloride 1,000 ml 06/22/16 04:47 06/22/16 04:58 Normal Saline - IV 06/22/16 04:48 1,000 ml ONCE ONE Administration 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 - 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: Patient pending admission, Dr. Lopez viewing patient status and will determine placement of ICU versus medical floor. Patient and family were updated to this plan and states status has not changed in fact improved and much more alert. Medicated with Tegretol 100 mg per patient's request for trigeminal nerve pain. Mother understands plan, understands there is no bed placement thus far and will update when information available. 9:30 AM, Dr. Lopez made decision to admit to [facility] surge floor and weights bed placement. Patient, health care provider, updated to plan *DC/Admit/Observation/Transfer Diagnosis at time of Disposition: Hyponatremia, Tracheostomy dependence Altered mental status Qualifiers: Altered mental status type: unspecified Qualified Code(s): R41.82 - Altered mental status, unspecified Urinary tract infection Qualifiers: Urinary tract infection type: site unspecified Hematuria presence: without hematuria Qualified Code(s): N39.0 - Urinary tract infection, site not specified
[2016-06-22 10:42] LABS: BASOPHIL 0.4 % (0-2.0); EOSINOPHIL 6.5 % (0-4.5); MCH 30.4 pg (25.7-33.7); MCHC 33.1 g/dl (32.0-36.0); MEAN CELL VOLUME 91.8 fl (80-96); MEAN PLT VOLUME 8.3 fl (7.5-11.1); NEUTROPHILS 63.4 % (42.8-82.8); PLATELET COUNT 152 K/MM3 (134-434); RDW 18.7 % (11.6-15.6); WHITE BLOOD COUNT 4.6 K/mm3 (4.0-10.0)
--- NOTE | 2016-06-22 10:58 | HP ---
Admitting History and Physical - Primary Care Physician PCP: Anne Lopez - Admission Chief Complaint: confusion and elevated BP at night History of Present Illness: Patient is a 51 year old female with h/o MS, quadaplegic,chronic indwelling perera sec to neurogenic bladder, tracheostomy BIBA with mother and aide for c/o confusion. Per mother patient is not making sense, got up and ask to have the covers removed but she did not have the covers on. She was seen in the Doctor' s office 1 week ago lab work done, found to have a UTI but decision was made not to treat. Patient progressively worsened and so 3 days ago call the pmd and was started on Bactrim. Tonight seemed to be more confused and so brought to the ED for eval. 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: Multiple Sclerosis (quadraplegia), Other (legally blind, trigeminal neuralgia -> baclofen pump) Cardiovascular: Yes: HTN, Hyperlipdemia Pulmonary: Yes: Pneumonia, Previously Intubated, Other Gastrointestinal: Yes: Constipation (chronic) Renal/: Yes: Neurogenic Bladder ( neurogenic bladder, chronic perera catheter) ...LMP: 06/07/12 Heme/Onc: Yes: Anemia Infectious Disease: Yes: Other (pneumonia, uti treated by urologist) Musculoskeletal: Yes: Other Dermatology: Yes: Other (chronic decubitus followed by wound care) - Smoking History Smoking history: Never smoked Have you smoked in the past 12 months: No Aproximately how many cigarettes per day: 0 - Alcohol/Substance Use Hx Alcohol Use: No History of Substance Use: reports: None - Social History ADL: Support Services History of Recent Travel: No Home Medications - Allergies Allergies/Adverse Reactions: Allergies Allergy/AdvReac Type Severity Reaction Status Date / Time chloral hydrate Allergy Intermediate Rash Verified 06/22/16 02:24 [Chloral Hydrate] azathioprine [From Imuran] Allergy Rash Verified 06/22/16 02:24 azathioprine sodium Allergy Rash Verified 06/22/16 02:24 [From Imuran] adhesive tape AdvReac Severe sensitivity Verified 06/22/16 02:24 to glue adhesive AdvReac Unknown Verified 06/22/16 02:24 - Home Medications Home Medications: Ambulatory Orders Carbamazepine [Tegretol -] 100 mg PO TID tab.chew 08/27/14 Albuterol 0.083% Nebulizer Rocio [Ventolin 0.083% Nebulizer Soln -] 1 neb NEB Q4H PRN #0 amp 10/26/14 Clonazepam [Klonopin] 0.5 mg PO DAILY 05/08/15 Hydralazine HCl [Apresoline -] 25 mg PO TID tablet 12/08/15 Amlodipine Besylate [Norvasc -] 10 mg PO HS 02/06/16 Baclofen 0 mg IVSS ASDIR 02/06/16 Mirtazapine 7.5 mg PO DAILY 02/06/16 Pantoprazole Sodium [Protonix] 40 mg PO DAILY 02/06/16 Levothyroxine [Synthroid -] 88 mcg PO DAILY@0700 #30 tablet 02/14/16 Ferrous Sulfate [Feosol] 325 mg PO BIDWM #30 bottle MDD 2 05/21/16 Family Disease History - Family Disease History Family Disease History: Other: Mother Review of Systems - Review of Systems Constitutional: reports: Other (sleeping in bed responds to her name informed her she is in ER) Physical Examination Vital Signs: Vital Signs Temperature Pulse Rate 67 06/22/16 07:50 Respiratory Rate 16 06/22/16 07:50 Blood Pressure 160/87 06/22/16 07:50 O2 Sat by Pulse Oximetry (%) 99 06/22/16 07:50 more alert and awake right now Constitutional: Yes: Calm HENT: Yes: Other (trach) Cardiovascular: Yes: Regular Rate and Rhythm, S1, S2 Respiratory: Yes: CTA Bilaterally, Diminished (at bases) Gastrointestinal: Yes: Normal Bowel Sounds, Soft Renal/: Yes: Perera Present Edema: No Neurological: Yes: Pre-Existing Deficit, Other (sleepy) Labs: CBC, BMP 06/22/16 10:30 Imaging - Results Cat Scan: Report Reviewed (calcified meningioma) Problem List - Problems (1) Altered mental status Assessment/Plan: sec to hyponatremia recheck lytes neuro and renal eval Code(s): R41.82 - ALTERED MENTAL STATUS, UNSPECIFIED Qualifiers: Altered mental status type: unspecified Qualified Code(s): R41.82 - Altered mental status, unspecified (2) Hyponatremia Assessment/Plan: renal eval repeat bmp pending [facility] tsh Code(s): E87.1 - HYPO-OSMOLALITY AND HYPONATREMIA (3) Tracheostomy dependence Assessment/Plan: trach care Code(s): Z93.0 - TRACHEOSTOMY STATUS (4) Decubital ulcer Assessment/Plan: hospital; bed frequent turn and postion Code(s): L89.90 - PRESSURE ULCER OF UNSPECIFIED SITE, UNSPECIFIED STAGE (5) Hx of multiple sclerosis Assessment/Plan: neuro eval Code(s): Z86.69 - PERSONAL HISTORY OF DIS OF THE NERVOUS SYS AND SENSE ORGANS (6) Hypothyroid Assessment/Plan: check tsh Code(s): E03.9 - HYPOTHYROIDISM, UNSPECIFIED (7) Trigeminal neuralgia Assessment/Plan: tegretol neuro eval Code(s): G50.0 - TRIGEMINAL NEURALGIA (8) HTN (hypertension) Assessment/Plan: norvasc and hydralazine Code(s): I10 - ESSENTIAL (PRIMARY) HYPERTENSION
[2016-06-22 11:03] LABS: ALBUMIN 2.6 g/dl (3.4-5.0); ANION GAP 7 (8-16); BILIRUBIN,TOTAL 0.3 mg/dL (0.2-1.0); CALCIUM 8.8 mg/dL (8.5-10.1); CO2 28 mmol/L (21-32); CREATININE 0.6 mg/dL (0.55-1.02); GLUCOSE,RANDOM 75 mg/dL (74-106); SGOT/AST 26 U/L (15-37); SGPT/ALT 31 U/L (12-78); TOT PROT 7.1 g/dl (6.4-8.2)
[2016-06-22 11:04] LABS: ALK PHOS 180 U/L (45-117)
[2016-06-22] MEDS ORDERED: hydrALAZINE HCL 25 MG TABLET (FP) ONE ×2 (12:30→22:54)
[2016-06-22] MEDS: carBAMazepine 100 MG TAB.CHEW PO SCH ×2 (12:35→17:47)
--- NOTE | 2016-06-22 14:00 | CONSULT ---
Admitting History and Physical - Primary Care Physician PCP: Lizzy Becerra - Admission History of Present Illness: Per EMR: "- Admission Chief Complaint: confusion and elevated BP at night History of Present Illness: Patient is a 51 year old female with h/o MS, quadaplegic,chronic indwelling perera sec to neurogenic bladder, tracheostomy BIBA with mother and aide for c/o confusion. Per mother patient is not making sense, got up and ask to have the covers removed but she did not have the covers on. She was seen in the Doctor' s office 1 week ago lab work done, found to have a UTI but decision was made not to treat. Patient progressively worsened and so 3 days ago call the pmd and was started on Bactrim. Tonight seemed to be more confused and so brought to the ED for eval. 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: Multiple Sclerosis (quadraplegia), Other (legally blind, trigeminal neuralgia -> baclofen pump) Cardiovascular: Yes: HTN, Hyperlipdemia Pulmonary: Yes: Pneumonia, Previously Intubated, Other Gastrointestinal: Yes: Constipation (chronic) Renal/: Yes: Neurogenic Bladder ( neurogenic bladder, chronic perera catheter) ...LMP: 06/07/12 Heme/Onc: Yes: Anemia Infectious Disease: Yes: Other (pneumonia, uti treated by urologist) Musculoskeletal: Yes: Other Dermatology: Yes: Other (chronic decubitus followed by wound care) - Smoking History Smoking history: Never smoked Have you smoked in the past 12 months: No Aproximately how many cigarettes per day: 0 - Alcohol/Substance Use Hx Alcohol Use: No History of Substance Use: reports: None - Social History ADL: Support Services History of Recent Travel: No History - Admission Reason For Visit: AMS HYPONATREMIA TRACHEOSTOMY DEPENDENCE - Diagnostics X-ray: Report Reviewed - General Mental Status: Alert and Oriented, Awake and Alert, Able to Follow Commands Attention: Intact Ability to Follow Directions: Good Head/Neck Control: Needs Assist - Hearing Hearing: Functional Speech Evaluation - Communication Primary Language: PERSIAN Communication: Yes: Simple Responses Oral Expression Ability: Yes: Mild Impairment - Speech Production Able to Make Needs Known: Yes: Mildly Impaired Intelligibility: Yes: Mildly Impaired - Speech Characteristics Voice Loudness: Mildly Soft/Quiet (with pmv in place, on trach collar) Voice Pitch: Yes: Normal Voice Phonatory-based Quality: Yes: Weak Speech Clarity: < 50% Nasal Resonance: Normal Articulation: Yes: Precise Rate of Speech: Intact - Language/Auditory Comprehension Follows: Yes: 1 Stage Simple Commands - Language/Verbal Expression Able to Communicate Wants and Needs: Yes: WNL Functional Communication Status: Yes: WNL - Swallow Evaluation/Bedside Assessment Current Nutritional Intake: NPO Dentition: Yes: Adequate Facial Symmetry at Rest: Symmetrical Facial Symmetry on Retraction: Symmetrical Facial Movement: Controlled Sensation: Normal Against Resistance Opening: Normal Against Resistance Closing: Normal Pucker Lips: Normal Smile: Normal Lingual Movement: Normal Lingual Speed of Movement: Normal Lingual Movement Strgth Against Opposition: Normal Lingual Movement Characteristics: Normal Velopharyngeal Movement: Normal Laryngeal Elevation: WFL Laryngeal Movement: Able to Palpate Rate of Intake: WFL Bolus Size: WFL Labial Seal: WFL Chewing: WFL Oral Prep Time: WFL A-P Transit: WFL Pocketing: None Timing of Swallow: WFL Coughing/Throat Clear: No Change in Voice: No Recommendations - Speech Evaluation, Impression/Plan Impression: Pt well known to me from previous admissions. Recent mbs during last admission. Performance unchanged. - Dysphagia Impressions/Plan Dysphagia Impressions: Mild Impairment, Risk of Aspiration (needs to be seated fully upright during meals) *Silent aspiration: cannot be R/O at bedside Dysphagia Treatment Plan: Chin Tuck/Down, Safe Rate, 1/2 tsp. at a time, Elevate HOB during feed - Recommendations Diet Consistency: Regular Liquids: Thin Liquids
[2016-06-22] MEDS: hydrALAZINE HCL 25 MG TABLET (FP) PO SCH ×3 (14:06→22:54)
--- NOTE | 2016-06-22 14:51 | CONSULT ---
Consult Consult Specialty:: PULMONARY/CCM Referred by:: ER Reason for Consultation:: hyponatremia, altered mental status - History of Present Illness Chief Complaint: altered mental status History of Present Illness: 51yo female with h/o multiple sclerosis, bedbound s/p tracheostomy, chronic indwelling perera catheter due to neurogenic bladder with frequent UTI who presents with altered mental status. She was seen as an outpt, found to have a UTI, started on bactrim PO. Became more confused and somnolent, found to be hyponatremic to 124. Also noted to be hypothermic. She is somnolent but arousable, unable to provide reliable history at this time. - History Source History Provided By: Patient, Medical Record Limitations to Obtaining History: Clinical Condition - Past Medical History AGRICULTURAL COMMODITIES GRADER: Yes: Multiple Sclerosis (quadraplegia), Other (legally blind, trigeminal neuralgia -> baclofen pump) Cardio/Vascular: Yes: HTN, Hyperlipdemia Pulmonary: Yes: Pneumonia, Previously Intubated, Other Gastrointestinal: Yes: Constipation (chronic) Renal/: Yes: Neurogenic Bladder ( neurogenic bladder, chronic perera catheter) ...LMP: 06/07/12 Infectious Disease: Yes: Other (pneumonia, uti treated by urologist) Musculoskeletal: Yes: Other Dermatology: Yes: Other (chronic decubitus followed by wound care) Additional Medical History: trigeminal neuralgia, baclofen pump. chronic decubitus followed by wound care. neurogenic bladder, chronic perera catheter - Alcohol/Substance Use Hx Alcohol Use: No History of Substance Use: reports: None - Smoking History Smoking history: Never smoked Have you smoked in the past 12 months: No Aproximately how many cigarettes per day: 0 - Social History Usual Living Arrangement: With Parent ADL: Support Services History of Recent Travel: No Home Medications - Allergies Allergies/Adverse Reactions: Allergies Allergy/AdvReac Type Severity Reaction Status Date / Time chloral hydrate Allergy Intermediate Rash Verified 06/22/16 02:24 [Chloral Hydrate] azathioprine [From Imuran] Allergy Rash Verified 06/22/16 02:24 azathioprine sodium Allergy Rash Verified 06/22/16 02:24 [From Imuran] adhesive tape AdvReac Severe sensitivity Verified 06/22/16 02:24 to glue adhesive AdvReac Unknown Verified 06/22/16 02:24 - Home Medications Home Medications: Ambulatory Orders Carbamazepine [Tegretol -] 100 mg PO TID tab.chew 08/27/14 Albuterol 0.083% Nebulizer Rocio [Ventolin 0.083% Nebulizer Soln -] 1 neb NEB Q4H PRN #0 amp 10/26/14 Clonazepam [Klonopin] 0.5 mg PO DAILY 05/08/15 Hydralazine HCl [Apresoline -] 25 mg PO TID tablet 12/08/15 Amlodipine Besylate [Norvasc -] 10 mg PO HS 02/06/16 Baclofen 0 mg IVSS ASDIR 02/06/16 Mirtazapine 7.5 mg PO DAILY 02/06/16 Pantoprazole Sodium [Protonix] 40 mg PO DAILY 02/06/16 Levothyroxine [Synthroid -] 88 mcg PO DAILY@0700 #30 tablet 02/14/16 Ferrous Sulfate [Feosol] 325 mg PO BIDWM #30 bottle MDD 2 05/21/16 Family Disease History - Family Disease History Family Disease History: Other: Mother Review of Systems Unable to obtain ROS, reason: pt somnolent Physical Exam Vital Signs: Vital Signs Temperature 94.5 F L 06/22/16 13:43 Pulse Rate 63 06/22/16 13:43 Respiratory Rate 16 06/22/16 13:43 Blood Pressure 108/64 06/22/16 13:43 O2 Sat by Pulse Oximetry (%) 97 06/22/16 13:43 Constitutional: Yes: Other (somnolent but arousable) Eyes: Yes: Conjunctiva Clear, EOM Intact HENT: Yes: Atraumatic, Normocephalic Neck: Yes: Supple, Trachea Midline Cardiovascular: Yes: Regular Rate and Rhythm Respiratory: Yes: Diminished (distant breath sounds) Gastrointestinal: Yes: Normal Bowel Sounds, Soft. No: Tenderness Edema: No Neurological: Yes: Lethargy Labs: CBC, BMP 06/22/16 10:30 06/22/16 10:30 Imaging - Results Chest X-ray: Report Reviewed, Image Reviewed (basilar atelectasis) Problem List - Problems (1) Urinary tract infection Code(s): N39.0 - URINARY TRACT INFECTION, SITE NOT SPECIFIED Qualifiers: Urinary tract infection type: site unspecified Hematuria presence: without hematuria Qualified Code(s): N39.0 - Urinary tract infection, site not specified (2) Altered mental status Code(s): R41.82 - ALTERED MENTAL STATUS, UNSPECIFIED Qualifiers: Altered mental status type: unspecified Qualified Code(s): R41.82 - Altered mental status, unspecified (3) Hyponatremia Code(s): E87.1 - HYPO-OSMOLALITY AND HYPONATREMIA (4) Sepsis Code(s): A41.9 - SEPSIS, UNSPECIFIED ORGANISM Qualifiers: Sepsis type: sepsis due to unspecified organism Qualified Code(s): A41.9 - Sepsis, unspecified organism (5) Multiple sclerosis Code(s): G35 - MULTIPLE SCLEROSIS Assessment/Plan Altered Mental Status UTI Hyponatremia r/o Sepsis Multiple Sclerosis Chronic Respiratory Failure - IVF - send urine lytes, serum osms - renal evaluation - antibiotics per ID - pt is normally on trach collar during day with PMV, mechanical ventilation at night - aspiration precautions - DVT prophylaxis Thank you for this consult Tereso Terrell MD
--- NOTE | 2016-06-22 15:26 | CONSULT ---
Consult Consult Specialty:: Nephrology ( Drs. Pereyra/ Nader) Referred by:: Dr. Lopez Reason for Consultation:: Many thanks for this consult referral. The patient is well known to our service, with h/o MS, quadruplegia, Ch. Respiratory insufficiency, Tracheostomy, Chr.Perera catheter, admitted with ? altered mentation, Hypothermia and Hyponatremia - History of Present Illness Chief Complaint: It all started as Trigeminal neuralgia. The patient's mother admits that her daughter drinks a lot of fluids. No shortness of breath. Denies any chest pains, or shortness of breat. NO overt GI symptoms. - History Source History Provided By: Family Member, Medical Record - Past Medical History PILLAR MAN: Yes: Multiple Sclerosis (quadraplegia), Other (legally blind, trigeminal neuralgia -> baclofen pump) Cardio/Vascular: Yes: HTN, Hyperlipdemia Pulmonary: Yes: Pneumonia, Previously Intubated, Other Gastrointestinal: Yes: Constipation (chronic) Renal/: Yes: Neurogenic Bladder ( neurogenic bladder, chronic perera catheter) ...LMP: 06/07/12 Infectious Disease: Yes: Other (pneumonia, uti treated by urologist) Musculoskeletal: Yes: Other Dermatology: Yes: Other (chronic decubitus followed by wound care) Additional Medical History: trigeminal neuralgia, baclofen pump. chronic decubitus followed by wound care. neurogenic bladder, chronic perera catheter - Alcohol/Substance Use Hx Alcohol Use: No History of Substance Use: reports: None - Smoking History Smoking history: Never smoked Have you smoked in the past 12 months: No Aproximately how many cigarettes per day: 0 - Social History Usual Living Arrangement: With Parent ADL: Support Services History of Recent Travel: No Home Medications - Allergies Allergies/Adverse Reactions: Allergies Allergy/AdvReac Type Severity Reaction Status Date / Time chloral hydrate Allergy Intermediate Rash Verified 06/22/16 02:24 [Chloral Hydrate] azathioprine [From Imuran] Allergy Rash Verified 06/22/16 02:24 azathioprine sodium Allergy Rash Verified 06/22/16 02:24 [From Imuran] adhesive tape AdvReac Severe sensitivity Verified 06/22/16 02:24 to glue adhesive AdvReac Unknown Verified 06/22/16 02:24 - Home Medications Home Medications: Ambulatory Orders Carbamazepine [Tegretol -] 100 mg PO TID tab.chew 08/27/14 Albuterol 0.083% Nebulizer Rocio [Ventolin 0.083% Nebulizer Soln -] 1 neb NEB Q4H PRN #0 amp 10/26/14 Clonazepam [Klonopin] 0.5 mg PO DAILY 05/08/15 Hydralazine HCl [Apresoline -] 25 mg PO TID tablet 12/08/15 Amlodipine Besylate [Norvasc -] 10 mg PO HS 02/06/16 Baclofen 0 mg IVSS ASDIR 02/06/16 Mirtazapine 7.5 mg PO DAILY 02/06/16 Pantoprazole Sodium [Protonix] 40 mg PO DAILY 02/06/16 Levothyroxine [Synthroid -] 88 mcg PO DAILY@0700 #30 tablet 02/14/16 Ferrous Sulfate [Feosol] 325 mg PO BIDWM #30 bottle MDD 2 05/21/16 Family Disease History - Family Disease History Family Disease History: Other: Mother Review of Systems - Review of Systems Constitutional: reports: Malaise, Weakness Neck: reports: No Symptoms Cardiovascular: denies: Chest Pain, Edema, Palpitations, Shortness of Breath Gastrointestinal: denies: Abdominal Pain, Bloating, Constipation, Diarrhea Musculoskeletal: denies: No Symptoms Neurological: reports: Change in LOC, Weakness Hematology/Lymphatic: reports: No Symptoms Physical Exam Vital Signs: Vital Signs Temperature 94.5 F L 06/22/16 13:43 Pulse Rate 63 06/22/16 13:43 Respiratory Rate 16 06/22/16 13:43 Blood Pressure 108/64 06/22/16 13:43 O2 Sat by Pulse Oximetry (%) 97 06/22/16 13:43 Constitutional: Yes: Anxious Eyes: Yes: WNL HENT: Yes: Other (Chr. Tracheostomy) Neck: Yes: Trachea Midline, Other (Tracheostomy) Cardiovascular: Yes: Regular Rate and Rhythm, S1, S2 Respiratory: Yes: Regular, Diminished Gastrointestinal: Yes: Normal Bowel Sounds, Soft Renal/: Yes: Other (Perera catheter in place) Musculoskeletal: Yes: Back Pain, Other (Decubiti) Edema: No Neurological: Yes: Alert, Oriented, Weakness Labs: CBC, BMP 06/22/16 10:30 06/22/16 10:30 Problem List - Problems (1) Altered mental status Code(s): R41.82 - ALTERED MENTAL STATUS, UNSPECIFIED Qualifiers: Altered mental status type: unspecified Qualified Code(s): R41.82 - Altered mental status, unspecified (2) Hyponatremia Code(s): E87.1 - HYPO-OSMOLALITY AND HYPONATREMIA (3) Trigeminal neuralgia Code(s): G50.0 - TRIGEMINAL NEURALGIA (4) Acute on chronic respiratory failure with hypoxia and hypercapnia Code(s): J96.21 - ACUTE AND CHRONIC RESPIRATORY FAILURE WITH HYPOXIA J96.22 - ACUTE AND CHRONIC RESPIRATORY FAILURE WITH HYPERCAPNIA (5) Anemia Code(s): D64.9 - ANEMIA, UNSPECIFIED Qualifiers: Other causes of anemia: chronic disease, other (6) Bacteriuria Code(s): N39.0 - URINARY TRACT INFECTION, SITE NOT SPECIFIED (7) Failure to thrive Code(s): SYP4082 - (8) Neurogenic bladder Code(s): N31.9 - NEUROMUSCULAR DYSFUNCTION OF BLADDER, UNSPECIFIED Assessment/Plan Hyponatremia...Acute on Chronic. The acute Hyponatremia possibly related to the excess free water consumption. The patient has Chronic Hyponatremia, which is multifactorial in etiology. Will continue the free water restriction. The Serum Sodium has significantly improved with Saline infusion. No further saline infusion needed at this point. Will monitor the renal functions with you. Basic w/u as ordered. Thanks again. Zuleika Pereyra MD
--- NOTE | 2016-06-22 16:36 | PN ---
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 (short form) - Note 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: ID consult dictated imp/reccd 51 year old female with PMH of MS, vent dependent , chronic perera catheter lives at home went to see her PMD last week labs drawn, na was 136 urine culture was sent she later felt she had a UTI, called her PMD and was started on Bactrim which she took over the last two days she was brought to ED with increasing confusion and hypertension sodium was 124 labs from PMD show urine culture with Serratia/EColi sensitive to ceftriaxone she received fluids and ceftriaxone in the ED she just ate a sandwich and is alert and back at her baseline mental status hyponatremia- resolving uti on treatment- continue rocephin f/u cultures d/w patient and mother at bedside Problem List - Problems (1) Altered mental status Code(s): R41.82 - ALTERED MENTAL STATUS, UNSPECIFIED Qualifiers: Altered mental status type: unspecified Qualified Code(s): R41.82 - Altered mental status, unspecified (2) Hyponatremia Code(s): E87.1 - HYPO-OSMOLALITY AND HYPONATREMIA (3) Urinary tract infection Code(s): N39.0 - URINARY TRACT INFECTION, SITE NOT SPECIFIED Qualifiers: Urinary tract infection type: site unspecified Hematuria presence: without hematuria Qualified Code(s): N39.0 - Urinary tract infection, site not specified
--- NOTE | 2016-06-22 18:01 | CONS ---
DATE OF CONSULTATION: DATE OF DICTATION: 06/22/2016 HISTORY OF PRESENT ILLNESS: This is a 51-year-old woman with a history of multiple sclerosis well known to our service. She is a functional quadriplegic. She has a chronic indwelling Raza secondary to neurogenic bladder. She has a tracheostomy and has a ventilator at home. She was brought to the emergency room with increasing confusion. She was seen about a week ago at her PMD's office by the nurse practitioner. She had labs drawn. Her sodium was 136, white count was normal. She had a UA and urine culture sent at that time. She has a chronic Raza. The decision was made not to treat her for UTI; later in the week the patient felt like she was getting a UTI. She called the office and was started on Bactrim, which she has taken for the last 2 days. On Wednesday night she became more confused. Her mother reported her blood pressure was very high as well. She was brought to the emergency room. She also was complaining of worsening trigeminal neuralgia pain. In the emergency room, she got Tegretol, she got Rocephin, she was noted to have a sodium of 124, and she received normal saline. Currently she is awake and alert. She is back at her baseline mental status. Her facial pain has improved. She just ate a sandwich, and she is feeling much better. She is also noted to be hypothermic, but she suffers from chronic hypothermia. PAST MEDICAL HISTORY: Notable for multiple sclerosis. She is a functional quadriplegic. She has trigeminal neuralgia and has a baclofen pump. She has a history of hypertension, hyperlipidemia, pneumonia. She has been previously intubated and has a tracheostomy. She has chronic constipation, neurogenic bladder with chronic Raza catheter that is changed monthly. History of anemia. UTI in the past. Chronic decubitus. She is followed by Dr. Miranda in wound care. SURGICAL HISTORY: Notable for tracheostomy in the past. ALLERGIES: She is allergic to CHLOROHYDRATE, AZATHIOPRINE, and ADHESIVE TAPE. MEDICATION: At home include Tegretol, albuterol nebulizer, Klonopin, Apresoline, Norvasc, baclofen which is used by the pump, mirtazapine, Protonix, Synthroid, and ferrous sulfate. SOCIAL HISTORY: She lives with her mother. There is no history of any cigarette or substance use. REVIEW OF SYSTEMS: Currently she is feeling well. Per her family they had a nice Easter, and she was able to participate and went to hoahaoism. PHYSICAL EXAMINATION: Vital signs: Temperature 96.9, pulse of 100, blood pressure 153/71, respiratory rate 16. She is saturating 97%. HEENT: Normocephalic. Eyes are anicteric. She has a tracheostomy which is capped. Lungs: Diminished breath sounds at the bases. Heart: Regular rate and rhythm. Abdomen: Soft, nontender. Extremities: Without edema. Genitourinary: She has a Raza draining clear urine. LABORATORY: Notable for a white count of 4.6, hemoglobin 10.2, platelets 152, INR 1, sodium 124 and corrected to 130. LFTs notable for alkaline phosphatase of 180. Urinalysis has trace leukocyte esterase with 1 white cell. Cultures are pending. Chest x-ray shows atelectasis, no infiltrate at the bases, and head CT is without any acute changes. She has a calcified meningioma that is unchanged. IMPRESSION: In summary, this is a 51-year-old woman admitted with confusion and hyponatremia who is on treatment for urinary tract infection, which I would suggest we continue at this time. There does not really seem to be any other acute focus of infection. I saw in the emergency room, I was not able to turn her to see her decubitus ulcers; the nurse reports she has stage 4 decubitus ulcers, all of which are clean at this time. I would suggest continuing the ceftriaxone, cultures have been sent. She appears to be back at her baseline mental status, so I would continue her present care and follow up on her cultures. Further recommendations to follow. I spoke with the patient and her mom at length. HANNA VAZ M.D. [id number]
[2016-06-23] MEDS: hydrALAZINE HCL 25 MG TABLET (FP) PO SCH ×3 (06:24→21:12)
[2016-06-23] MEDS ORDERED: LEVOTHYROXINE NA 88 MCG TABLET (FP) PO SCH (07:00)
[2016-06-23 08:02] LABS: ALBUMIN 2.7 g/dl (3.4-5.0); ANION GAP 10 (8-16); BILIRUBIN,TOTAL 0.3 mg/dL (0.2-1.0); CALCIUM 9.2 mg/dL (8.5-10.1); CO2 24 mmol/L (21-32); CREATININE 0.6 mg/dL (0.55-1.02); GLUCOSE,RANDOM 55 mg/dL (74-106); MAGNESIUM 1.9 mg/dL (1.8-2.4); SGOT/AST 26 U/L (15-37); SGPT/ALT 29 U/L (12-78); TOT PROT 7.3 g/dl (6.4-8.2)
[2016-06-23 08:10] LABS: ALK PHOS 187 U/L (45-117); THYROID STIMULATING HORMONE 5.86 uIU/ml (0.358-3.74)
[2016-06-23 08:23] LABS: BASOPHIL 0.2 % (0-2.0); EOSINOPHIL 4.7 % (0-4.5); MCH 31.2 pg (25.7-33.7); MCHC 33.9 g/dl (32.0-36.0); MEAN PLT VOLUME 8.6 fl (7.5-11.1); NEUTROPHILS 77.7 % (42.8-82.8); PLATELET COUNT 181 K/MM3 (134-434); RDW 18.9 % (11.6-15.6); WHITE BLOOD COUNT 9.6 K/mm3 (4.0-10.0)
[2016-06-23] MEDS: BACLOFEN 10 MG TABLET (FP) PO SCH (08:23)
[2016-06-23] MEDS: amLODIPine BESYLATE 10 MG TABLET (FP) PO SCH (09:27)
[2016-06-23] MEDS: carBAMazepine 100 MG TAB.CHEW PO SCH ×4 (09:28→18:40)
[2016-06-23] MEDS: cefTRIAXone 1 GM/50 ML BAG (PRE-DOCKED) IVPB SCH (09:28)
[2016-06-23] MEDS ORDERED: LEVOTHYROXINE NA 100 MCG TABLET (FP) PO SCH (10:01)
--- NOTE | 2016-06-23 10:05 | PN ---
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, Physician Chief Complaint: feeling better ate breakfast the face pain- trigeminal neurgalgia ia a concern - Current Medication List Current Medications: Active Medications Amlodipine Besylate (Norvasc -) 10 mg PO DAILY [facility] Last Admin: 06/23/16 09:27 Dose: 10 mg Baclofen (Lioresal -) 10 mg PO DAILY@0800 [facility] Last Admin: 06/23/16 08:23 Dose: 10 mg Carbamazepine (Tegretol -) 100 mg PO TIDCM [facility] Last Admin: 06/23/16 09:28 Dose: 100 mg Ceftriaxone Sodium (Rocephin 1gm Ivpb (Pre-Docked)) 1 gm IVPB DAILY [facility] PRN Reason: Protocol Last Admin: 06/23/16 09:28 Dose: 1 gm Hydralazine HCl (Apresoline -) 25 mg PO TID [facility] Last Admin: 06/23/16 06:24 Dose: 25 mg Levothyroxine Sodium (Synthroid -) 100 mcg PO DAILY@0700 [facility] - Objective Vital Signs: Vital Signs Temperature 97.7 F 06/23/16 06:33 Pulse Rate 66 06/23/16 06:34 Respiratory Rate 13 06/23/16 06:48 Blood Pressure 106/55 06/23/16 06:34 O2 Sat by Pulse Oximetry (%) 98 06/23/16 01:28 Constitutional: Yes: Calm Neck: Yes: Other (trach) Cardiovascular: Yes: Regular Rate and Rhythm, S1, S2 Respiratory: Yes: CTA Bilaterally Gastrointestinal: Yes: Normal Bowel Sounds, Soft Genitourinary: Yes: Raza Present Edema: No Neurological: Yes: Alert, Oriented, Pre-Existing Deficit Labs: CBC, BMP 06/23/16 07:10 06/23/16 07:10 INR, PTT INR 1.05 (0.82-1.09) 06/22/16 03:40 Problem List - Problems (1) Altered mental status Assessment/Plan: improved na 130 renal on board uti on rocephin awaiting cultures Code(s): R41.82 - ALTERED MENTAL STATUS, UNSPECIFIED Qualifiers: Altered mental status type: unspecified Qualified Code(s): R41.82 - Altered mental status, unspecified (2) Hyponatremia Assessment/Plan: tsh high synthroid adjusted na 130 got ivf now stoppped Code(s): E87.1 - HYPO-OSMOLALITY AND HYPONATREMIA (3) Tracheostomy dependence Assessment/Plan: trach care Code(s): Z93.0 - TRACHEOSTOMY STATUS (4) Decubital ulcer Assessment/Plan: hospital; bed frequent turn and postion Code(s): L89.90 - PRESSURE ULCER OF UNSPECIFIED SITE, UNSPECIFIED STAGE (5) Hx of multiple sclerosis Assessment/Plan: neuro eval Code(s): Z86.69 - PERSONAL HISTORY OF DIS OF THE NERVOUS SYS AND SENSE ORGANS (6) Hypothyroid Assessment/Plan: check tsh- high dose adjsuted Code(s): E03.9 - HYPOTHYROIDISM, UNSPECIFIED (7) Trigeminal neuralgia Assessment/Plan: tegretol neuro eval to further adjust medicatons Code(s): G50.0 - TRIGEMINAL NEURALGIA (8) HTN (hypertension) Assessment/Plan: norvasc and hydralazine Code(s): I10 - ESSENTIAL (PRIMARY) HYPERTENSION Assessment/Plan patient has appointment at [facility] which was made 6 months ago, it is tmw at 1:00pm she doensot want to miss it plan pending cultures will dc home early in AM and sent home on oral abx with FU at the office next week
--- NOTE | 2016-06-23 10:16 | PN ---
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, ANIMAL IMPERSONATOR - Note 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: Trigeminal neuralgia left cheek pain started again this morning while chewing a roll. Discussed options with pt and her sister. Pt had a successful local nerve block injection in the past at [facility]. This may be beneficial with less adverse affects of lethargy,risk of increased dysphagia, etc with pain medication. Reviewed with PMD. Tolerating diet without difficulty reported or observed. Ideally, food/liquid/ meds placement on RIGHT side of mouth.
--- NOTE | 2016-06-23 11:18 | PN ---
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 (short form) - Note 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: Renal Follow up for Hyponatremia Pt seen and examined at the bedside has facial pain no sob, chest pain, fever, chills, N/V/D sister and aid at the bedside s/p IVF yesterday Vital Signs Temperature 97.7 F 06/23/16 06:33 Pulse Rate 66 06/23/16 06:34 Respiratory Rate 13 06/23/16 06:48 Blood Pressure 106/55 06/23/16 06:34 O2 Sat by Pulse Oximetry (%) 98 06/23/16 01:28 Intake & Output 06/20/16 06/21/16 06/22/16 06/23/16 23:59 23:59 23:59 23:59 Output Total 1700 1400 Balance -1700 -1400 Weight 200 lb 162 lb Gen: NAD CVS: RRR, No M/R Abd: soft NT/ND Ext: No edema : Raza in place CBC, BMP 06/23/16 07:10 06/23/16 07:10 Current Medications Amlodipine Besylate (Norvasc -) 10 mg PO DAILY [facility] Last Admin: 06/23/16 09:27 Dose: 10 mg Baclofen (Lioresal -) 10 mg PO DAILY@0800 [facility] Last Admin: 06/23/16 08:23 Dose: 10 mg Carbamazepine (Tegretol -) 100 mg PO TIDCM [facility] Last Admin: 06/23/16 09:28 Dose: 100 mg Ceftriaxone Sodium (Rocephin 1gm Ivpb (Pre-Docked)) 1 gm IVPB DAILY [facility] PRN Reason: Protocol Last Admin: 06/23/16 09:28 Dose: 1 gm Hydralazine HCl (Apresoline -) 25 mg PO TID [facility] Last Admin: 06/23/16 06:24 Dose: 25 mg Levothyroxine Sodium (Synthroid -) 100 mcg PO DAILY@0700 [facility] A/P 51 year old woman with PMhx of MS now Quadraplegic, Trach, hx of hyponatremia ( Varying etiologies in the past: Volume depletion vs. SIADH) #Hypovolemic Hyponatremia Pt with poor oral intake of solutes in setting of facial pain serum Na responded well to normal saline start sodium chloride tab 1 daily trend Na Q24h if serum na stable and pt clinically stable can be discharged and monitor Na as outpatient Free water restriction of 1.2L daily for now #UTI/AMS Continue Ceftriaxone as per ID f/u cultures Thank you Tyshawn Doe DO
--- NOTE | 2016-06-23 12:06 | PN ---
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 (short form) - Note 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: Awake and alert in NAD on NC O2 @ 3 L. Trach is capped. Reports facial neuralgia pain. Intake & Output 06/20/16 06/21/16 06/22/16 06/23/16 23:59 23:59 23:59 23:59 Intake Total 50 Output Total 1700 1400 Balance -1700 -1350 Weight 200 lb 162 lb Last Vital Signs Temp Pulse Resp BP Pulse Ox 97.7 F 100 H 13 106/55 95 06/23/16 06:33 06/23/16 11:00 06/23/16 06:48 06/23/16 06:34 06/23/16 11:00 Active Medications Amlodipine Besylate (Norvasc -) 10 mg PO DAILY [facility] Last Admin: 06/23/16 09:27 Dose: 10 mg Baclofen (Lioresal -) 10 mg PO DAILY@0800 [facility] Last Admin: 06/23/16 08:23 Dose: 10 mg Carbamazepine (Tegretol -) 200 mg PO TIDCM [facility] Ceftriaxone Sodium (Rocephin 1gm Ivpb (Pre-Docked)) 1 gm IVPB DAILY [facility] PRN Reason: Protocol Last Admin: 06/23/16 09:28 Dose: 1 gm Hydralazine HCl (Apresoline -) 25 mg PO TID [facility] Last Admin: 06/23/16 06:24 Dose: 25 mg Levothyroxine Sodium (Synthroid -) 100 mcg PO DAILY@0700 [facility] Sodium Chloride (Sodium Chloride Tablet -) 1 gm PO DAILY [facility] Constitutional: Yes: Awake and alert, NAD Eyes: Yes: Conjunctiva Clear, EOM Intact HENT: Yes: Atraumatic, Normocephalic Neck: Yes: Supple, Trachea Midline Cardiovascular: Yes: Regular Rate and Rhythm Respiratory: Yes: Diminished at the bases Gastrointestinal: Yes: Normal Bowel Sounds, Soft. No: Tenderness Edema: No Neurological: Yes: Awake and alert Labs: Laboratory Results - last 24 hr 06/23/16 06/23/16 07:10 07:10 WBC 9.6 D RBC 3.28 L Hgb 10.2 L Hct 30.2 L MCV 92.0 MCHC 33.9 RDW 18.9 H Plt Count 181 MPV 8.6 Neutrophils % 77.7 D Lymphocytes % 11.8 D Monocytes % 5.6 Eosinophils % 4.7 H Basophils % 0.2 Sodium 130 L Potassium 4.8 Chloride 96 L Carbon Dioxide 24 Anion Gap 10 BUN 13 Creatinine 0.6 Creat Clearance w eGFR > 60 Random Glucose 55 L D Calcium 9.2 Magnesium 1.9 Total Bilirubin 0.3 AST 26 ALT 29 Alkaline Phosphatase 187 H Total Protein 7.3 Albumin 2.7 L TSH 5.86 H D Problem List - Problems (1) Urinary tract infection Code(s): N39.0 - URINARY TRACT INFECTION, SITE NOT SPECIFIED Qualifiers: Urinary tract infection type: site unspecified Hematuria presence: without hematuria Qualified Code(s): N39.0 - Urinary tract infection, site not specified (2) Altered mental status Code(s): R41.82 - ALTERED MENTAL STATUS, UNSPECIFIED Qualifiers: Altered mental status type: unspecified Qualified Code(s): R41.82 - Altered mental status, unspecified (3) Hyponatremia Code(s): E87.1 - HYPO-OSMOLALITY AND HYPONATREMIA (4) Sepsis Code(s): A41.9 - SEPSIS, UNSPECIFIED ORGANISM Qualifiers: Sepsis type: sepsis due to unspecified organism Qualified Code(s): A41.9 - Sepsis, unspecified organism (5) Multiple sclerosis Code(s): G35 - MULTIPLE SCLEROSIS Assessment/Plan Altered Mental Status UTI Hyponatremia r/o Sepsis Multiple Sclerosis Chronic Respiratory Failure Trigeminal Neuralgia - antibiotics per ID - Use of daytime O2 only as needed - Mechanical ventilation at night - aspiration precautions - DVT prophylaxis Dr Fox
[2016-06-23] MEDS: SODIUM CHLORIDE 1 GM TABLET PO SCH (14:54)
--- NOTE | 2016-06-23 14:54 | PN ---
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 (short form) - Note 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: doing well Vital Signs Period Temp Pulse Resp BP Sys/Morillo Pulse Ox Last 24 Hr 96.3 F-97.7 F 66-100 -17 96-180/55-100 95-100 trach capped cor-rrr lungs decreased bs at bases abd soft,nt ext no edema perera CBC, BMP 06/23/16 07:10 06/23/16 07:10 Microbiology 06/22/16 02:29 Urine - Urine Clean Catch Urine Culture - Preliminary Non Lactose Fermenting Gnb Non Lactose Fermenting Gnb#2 06/22/16 04:47 Blood - Peripheral Venous Blood Culture - Preliminary NO GROWTH OBTAINED AFTER 24 HOURS, INCUBATION TO CONTINUE FOR 4 DAYS. 06/22/16 03:40 Blood - Peripheral Venous Blood Culture - Preliminary NO GROWTH OBTAINED AFTER 24 HOURS, INCUBATION TO CONTINUE FOR 4 DAYS. ap hyponatremia uti MS can switch to ceftin in am please call back if needed Problem List - Problems (1) Altered mental status Code(s): R41.82 - ALTERED MENTAL STATUS, UNSPECIFIED Qualifiers: Altered mental status type: unspecified Qualified Code(s): R41.82 - Altered mental status, unspecified (2) Hyponatremia Code(s): E87.1 - HYPO-OSMOLALITY AND HYPONATREMIA (3) Urinary tract infection Code(s): N39.0 - URINARY TRACT INFECTION, SITE NOT SPECIFIED Qualifiers: Urinary tract infection type: site unspecified Hematuria presence: without hematuria Qualified Code(s): N39.0 - Urinary tract infection, site not specified
[2016-06-23] MEDS ORDERED: PT OWN MED DRAWER 7, Y5N ONE (17:29)
--- NOTE | 2016-06-23 18:28 | CONSULT ---
Consult - text type - Consultation Consultation Note: NEUROLOGY CONSULTATION is greatlyappreciated: Pt. examined and discussed with mother and health Aie. 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 On Baclofen pump and tegretol for Trigeminal Neuralgia. Tetraplegic. Bedbound. Indwelling Raza (changed by mother). Now readmitted with recurrent UTI/Urosepsis with lethargy. Already better on antibiotics. Neuro exam unchanged. IMP: Advanced MS. Recurrent UTI's. Suggest: Continue current regimen. Change Raza weekly. Nurses should review sterile technique with mother. Surveillance U/A, C&S on monthly basis. Neuro follow-up as out patient. Thank you very much, Rom Conroy MD
[2016-06-24] MEDS: hydrALAZINE HCL 25 MG TABLET (FP) PO SCH (06:08)
[2016-06-24 06:58] VITALS: TEMP 98.4
[2016-06-24] MEDS ORDERED: PT OWN MED DRAWER 7, Y5N ONE (08:55)
[2016-06-24] MEDS: carBAMazepine 100 MG TAB.CHEW PO SCH (08:58)
[2016-06-24] MEDS: BACLOFEN 10 MG TABLET (FP) PO SCH (08:59)
[2016-06-24] MEDS: amLODIPine BESYLATE 10 MG TABLET (FP) PO SCH (08:59)
[2016-06-24] MEDS: cefTRIAXone 1 GM/50 ML BAG (PRE-DOCKED) IVPB SCH (08:59)
[2016-06-24] MEDS: SODIUM CHLORIDE 1 GM TABLET PO SCH (08:59)
[2016-06-24 09:30] LABS: CALCIUM 9.3 mg/dL (8.5-10.1); COCKROFT - GAULT 127.228; CREATININE 0.6 mg/dL (0.55-1.02)
--- NOTE | 2016-06-24 10:05 | DS ---
Physical Examination Vital Signs: Vital Signs Temperature 98.4 F 06/24/16 06:57 Pulse Rate 62 06/24/16 06:57 Respiratory Rate 20 06/24/16 06:57 Blood Pressure 115/61 06/24/16 06:57 O2 Sat by Pulse Oximetry (%) 97 06/23/16 21:00 Cardiovascular: Yes: Regular Rate and Rhythm Respiratory: Yes: CTA Bilaterally Gastrointestinal: Yes: Normal Bowel Sounds, Soft Labs: CBC, BMP 06/23/16 07:10 06/24/16 08:35 Discharge Summary Reason For Visit: AMS HYPONATREMIA TRACHEOSTOMY DEPENDENCE Current Active Problems Altered mental status (Acute) Hyponatremia (Acute) Tracheostomy dependence (Acute) Trigeminal neuralgia (Acute) Urinary tract infection (Acute) Hospital Course: - Problems (1) Altered mental status Assessment/Plan: improved na 130 renal on board uti on rocephin awaiting cultures Code(s): R41.82 - ALTERED MENTAL STATUS, UNSPECIFIED Qualifiers: Altered mental status type: unspecified Qualified Code(s): R41.82 - Altered mental status, unspecified (2) Hyponatremia Assessment/Plan: tsh high synthroid adjusted na 133 got ivf now stoppped Code(s): E87.1 - HYPO-OSMOLALITY AND HYPONATREMIA (3) Tracheostomy dependence Assessment/Plan: trach care Code(s): Z93.0 - TRACHEOSTOMY STATUS (4) Decubital ulcer Assessment/Plan: hospital; bed frequent turn and postion Code(s): L89.90 - PRESSURE ULCER OF UNSPECIFIED SITE, UNSPECIFIED STAGE (5) Hx of multiple sclerosis Assessment/Plan: neuro eval Code(s): Z86.69 - PERSONAL HISTORY OF DIS OF THE NERVOUS SYS AND SENSE ORGANS (6) Hypothyroid Assessment/Plan: check tsh- high dose adjsuted Code(s): E03.9 - HYPOTHYROIDISM, UNSPECIFIED (7) Trigeminal neuralgia Assessment/Plan: tegretol neuro eval to further adjust medicatons Code(s): G50.0 - TRIGEMINAL NEURALGIA (8) HTN (hypertension) Assessment/Plan: norvasc and hydralazine Code(s): I10 - ESSENTIAL (PRIMARY) HYPERTENSION Assessment/Plan patient has appointment at [facility] which was made 6 months ago, it is at 1: 00pm and sent home on oral abx with FU at the office next week - Instructions Diet, Activity, Other Instructions: synthroid 100mcg daily come to office next week to recheck sodium level fluid restriction to 1200ml per day Referrals: Anne Lopez MD [Primary Care Provider] - Disposition: VNS/HOME HEALTH CARE - Home Medications Comprehensive Discharge Medication List: Ambulatory Orders Albuterol 0.083% Nebulizer Rocio [Ventolin 0.083% Nebulizer Soln -] 1 neb NEB Q4H PRN #0 amp 10/26/14 Clonazepam [Klonopin] 0.5 mg PO DAILY 05/08/15 Hydralazine HCl [Apresoline -] 25 mg PO TID tablet 12/08/15 Amlodipine Besylate [Norvasc -] 10 mg PO HS 02/06/16 Baclofen 0 mg IVSS ASDIR 02/06/16 Mirtazapine 7.5 mg PO DAILY 02/06/16 Pantoprazole Sodium [Protonix] 40 mg PO DAILY 02/06/16 Ferrous Sulfate [Feosol] 325 mg PO BIDWM #30 bottle MDD 2 05/21/16 Carbamazepine [Tegretol -] 200 mg PO TID #90 tablet 06/24/16 Cefuroxime Axetil [Ceftin -] 250 mg PO BID #14 tablet 06/24/16 Levothyroxine [Synthroid -] 100 mcg PO DAILY@0700 #30 tablet 06/24/16 Sodium Chloride Tablet - 1 gm PO DAILY #30 tablet 06/24/16
--- NOTE | 2016-06-24 10:58 | PN ---
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 (short form) - Note 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: Renal Follow up for Hyponatremia Pt seen and examined at the bedside for discharge today no acute complaints Vital Signs Temperature 98.4 F 06/24/16 06:57 Pulse Rate 62 06/24/16 06:57 Respiratory Rate 20 06/24/16 06:57 Blood Pressure 115/61 06/24/16 06:57 O2 Sat by Pulse Oximetry (%) 97 06/23/16 21:00 Intake & Output 06/21/16 06/22/16 06/23/16 06/24/16 23:59 23:59 23:59 23:59 Intake Total 880 60 Output Total 1700 2850 Balance -1699 -1969 60 Weight 200 lb 162 lb Gen: NAD CVS: RRR, No M/R Abd: soft NT/ND Ext: No edema : Raza in place CBC, BMP 06/23/16 07:10 06/24/16 08:35 Current Medications Amlodipine Besylate (Norvasc -) 10 mg PO DAILY [facility] Last Admin: 06/24/16 08:59 Dose: 10 mg Baclofen (Lioresal -) 10 mg PO DAILY@0800 [facility] Last Admin: 06/24/16 08:59 Dose: 10 mg Carbamazepine (Tegretol -) 200 mg PO TIDCM [facility] Last Admin: 06/24/16 08:58 Dose: 200 mg Ceftriaxone Sodium (Rocephin 1gm Ivpb (Pre-Docked)) 1 gm IVPB DAILY [facility] PRN Reason: Protocol Last Admin: 06/24/16 08:59 Dose: 1 gm Hydralazine HCl (Apresoline -) 25 mg PO TID [facility] Last Admin: 06/24/16 06:08 Dose: 25 mg Levothyroxine Sodium (Synthroid -) 100 mcg PO DAILY@0700 [facility] Last Admin: 06/24/16 06:08 Dose: 100 mcg Sodium Chloride (Sodium Chloride Tablet -) 1 gm PO DAILY [facility] Last Admin: 06/24/16 08:59 Dose: 1 gm A/P 51 year old woman with PMhx of MS now Quadraplegic, Trach, hx of hyponatremia ( Varying etiologies in the past: Volume depletion vs. SIADH) #Hypovolemic Hyponatremia Serum Na now improved and stable continue salt tabs daily as outpatient repeat BMP in 4-5 days to ensure that Na is stable #UTI/AMS s/p Ceftriaxone MS now returned to normal Thank you for allowing us to take part in the care of this patient Tyshawn Doe DO
[2016-06-24 11:07] VITALS: BP 152/88; PULSE 88
== END 2016-06-24 11:08 | disposition home health service (06) | DRG 640 ==
LOC: JER 02:02 → JICU 06:30 → UNDOADMIN 06:30 → JERBED 06:30 → UNDOADMIN 06:48 → JICU 06:48 → J5S 06-23 00:51
PROVIDERS: ADMIT Family Medicine; ATTEND Family Medicine
PROC: 5A1945Z Respiratory Ventilation, 24-96 Consecutive Hours (ICD-10-PCS; principal; 2016-06-22)
DX: E87.1 Hypo-osmolality and hyponatremia (principal); R53.2 Functional quadriplegia; L89.154 Pressure ulcer of sacral region, stage 4; N39.0 Urinary tract infection, site not specified; J96.10 Chronic respiratory failure, unspecified whether with hypoxia or hypercapnia; Z99.11 Dependence on respirator [ventilator] status; J98.11 Atelectasis; N31.9 Neuromuscular dysfunction of bladder, unspecified; G35 Multiple sclerosis; Z93.0 Tracheostomy status; E03.9 Hypothyroidism, unspecified; G50.0 Trigeminal neuralgia; I10 Essential (primary) hypertension; Z74.01 Bed confinement status; H54.8 Legal blindness, as defined in USA; K59.00 Constipation, unspecified; D64.9 Anemia, unspecified; E86.1 Hypovolemia
CPT/HCPCS: 36415; 70450-TC; 71010-TC; 80048; 80053; 81003; 81015; 82550; 83605; 83735; 83930; 83935; 84300; 84443; 84484; 85025; 85610; 86850; 86900; 86901; 87040; 87086; 87186; 93005; 93010; 94002; 99285-25; J0475

== ENCOUNTER 2016-12-11 12:21 | Emergency (ER) | payer OTHER ==
--- NOTE | 2016-12-11 12:32 | PDOC ---
History of Present Illness - General Stated Complaint: Shortness of Breath Time Seen by Provider: 12/11/16 12:31 History Source: Patient - History of Present Illness Initial Comments: 12/11/16 18:05 Patient is a 51 y.o. female with a PMH of MS who presents with a complaint of shortness of breath following her tracheostomy placement two days previous. Patient notes she feels as if she is unable to get enough air in her lungs when her tracheal tube in is in the non-speaking position, however she is not short of breath while speaking. Patient denies any recent fevers, chills, chest pain , abdominal pain, nausea, vomiting, or diarrhea. Does note chronic constipation (likely 2/2 to pain medications) which is managed by her PCP. Past History - Past Medical History Allergies/Adverse Reactions: Allergies Allergy/AdvReac Type Severity Reaction Status Date / Time chloral hydrate Allergy Intermediate Rash Verified 12/11/16 12:36 [Chloral Hydrate] azathioprine [From Imuran] Allergy Rash Verified 12/11/16 12:36 azathioprine sodium Allergy Rash Verified 12/11/16 12:36 [From Imuran] adhesive tape AdvReac Severe sensitivity Verified 12/11/16 12:36 to glue adhesive AdvReac Unknown Verified 12/11/16 12:36 Home Medications: Ambulatory Orders Albuterol 0.083% Nebulizer Rocio [Ventolin 0.083% Nebulizer Soln -] 1 neb NEB Q4H PRN #0 amp 10/26/14 Clonazepam [Klonopin] 0.5 mg PO DAILY 05/08/15 Hydralazine HCl [Apresoline -] 25 mg PO TID tablet 12/08/15 Amlodipine Besylate [Norvasc -] 10 mg PO HS 02/06/16 Baclofen 0 mg IVSS ASDIR 02/06/16 Mirtazapine 7.5 mg PO DAILY 02/06/16 Pantoprazole Sodium [Protonix] 40 mg PO DAILY 02/06/16 Ferrous Sulfate [Feosol] 325 mg PO BIDWM #30 bottle MDD 2 05/21/16 Carbamazepine [Tegretol -] 200 mg PO TID #90 tablet 06/24/16 Levothyroxine [Synthroid -] 100 mcg PO DAILY@0700 #30 tablet 06/24/16 Sodium Chloride Tablet - 1 gm PO DAILY #30 tablet 06/24/16 Anemia: No Asthma: No Cancer: No CVA: No COPD: No CHF: No Dementia: (M.S,TRIG.NEUROLAGIA) Diabetes: No GI Disorders: Yes Disorders: Yes (baclofen implant) HTN: Yes Hypercholesterolemia: No Liver Disease: No Seizures: Yes Thyroid Disease: No - Surgical History Abdominal Surgery: No Appendectomy: No Cardiac Surgery: No Cholecystectomy: No GI Surgery: (BACLOFEN IMPLANT) Lung Surgery: Yes (TRACH) Neurologic Surgery: No Orthopedic Surgery: No - Immunization History Immunization Up to Date: Yes - Suicide/Smoking/Psychosocial Hx Smoking Status: No Smoking History: Never smoked Have you smoked in the past 12 months: No Number of Cigarettes Smoked Daily: 0 Cigars Per Day: 0 Hx Alcohol Use: No Drug/Substance Use Hx: No Substance Use Type: None Hx Substance Use Treatment: No Review of Systems - Review of Systems Constitutional: No: Chills, Fever Respiratory: Yes: Shortness of Breath, SOB at Rest Cardiac (ROS): No: Chest Pain, Edema, Irregular Heart Rate, Lightheadedness, Palpitations ABD/GI: No: Diarrhea, Nausea, Vomiting : No: Burning, Dysuria Neurological: No: Headache, Numbness, Tingling, Tremors, Weakness All Other Systems: Reviewed and Negative *Physical Exam - Physical Exam General Appearance: Yes: Nourished, Obese HEENT: positive: EOMI, ANDRIY Neck: positive: Other (Tracheostomy tube; no erythema, edema, warmth @ site of recently replaced trachea) Respiratory/Chest: positive: Lungs Clear, Normal Breath Sounds Cardiovascular: positive: Regular Rhythm, Regular Rate, S1, S2 Extremity: positive: Normal Capillary Refill, Normal Inspection Integumentary: positive: Normal Color, Dry, Warm Neurologic: positive: freelance translator II-XII NML intact, Fully Oriented, Alert ED Treatment Course - LABORATORY CBC & Chemistry Diagram: 12/11/16 14:30 12/11/16 14:30 Medical Decision Making - Medical Decision Making 12/11/16 18:23 Patient is a 51 y.o. female who presents c/o ELIZABETH following her tracheostomy swap two day previous. On PE, patient is hemodynamically stable and breathing comfortably (non-labored respirations, no accessory muscle use) at 96% on RA. PLAN 1. CXR 12/11/16 18:26 CXR shows tracheostomy tube in place. Patient states her symptoms resolved once she came to the ED. Phone conversation with patient's sister @ [phone] - notes patient has a h/o hyponatremia and notes patient has c/o of mental status changes for the last 2-3 days. Patient reassessed, denies any confusion, remains A&O x4. Mother @ bedside denies any noticed change in mental status. Clinical suspicion for hyponatremia is low (no AMS, no muscle cramping, no seizures however does note lethargy on repeated questioning). CMP shows Na 135 , patient counseled to return to ED should SiSx of hyponatremia develop. As CMP also showed elevated LFTs, abdominal U/S ordered - no liver pathology however cholelithiasis noted. Patient discharged with GI follow-up for LFTs and surgical referral for possible cholecystectomy. Dr. Myers (covering for patient's PCP, Dr. Lopez) contacted, agreed with evaluation and treatment plan. *DC/Admit/Observation/Transfer Diagnosis at time of Disposition: Tracheostomy care - Discharge Dispostion Disposition: HOME Condition at time of disposition: Good Admit: No - Referrals Referrals: Ponce Hector MD [Staff Physician] - Karel Knutson [Staff Physician] - - Patient Instructions Printed Discharge Instructions: DI for Gallstones, Gallstones Additional Instructions: Please make an appointment with Dr. Hector, [employer], within the next 7-10 days for evaluation of your elevated liver enzymes. Please also make an appointment with Dr. Zamudio for evaluation of your gallstones and possible gallbladder removal. Please return to the ED should your symptoms increase in severity.
[2016-12-11 12:38] VITALS: BMI 23.0
[2016-12-11 13:03] VITALS: TEMP 93.8
--- NOTE | 2016-12-11 13:03 | PDOC ---
Attending Attestation - HPI HPI: 12/11/16 13:12 51 yr old female, with significant pmhx of MS, tracheostomy, quadriplegic, who presents to the emergency room today with shortness of breath that began yesterday after having her trach change yesterday. Mom wanted to be sure that the trach was placed correctly. She notes that the SOB occurs when talking. She uses nebulizer treatments every 6 hours and the last treatment was at approximately 10:00am. PCP: Dr. Lopez - Physicial Exam PE: 12/11/16 13:12 Constitutional: Awake, alert, oriented. No acute distress. Head: Normocephalic. Atraumatic Eyes: PERRL. EOMI. Conjunctivae are not pale. ENT: Mucous membranes are moist and intact. Posterior pharynx without exudates or erythema. Uvula midline. Neck: Supple. Full ROM. No lymphadenopathy. Cardiovascular: Regular rate. Regular rhythm. S1, S2 regular. Distal pulses are 2+ and symmetric. Pulmonary/Chest: +wheezing diffusely. No evidence of respiratory distress. No rales or rhonchi. Abdominal: Soft and non-distended. There is no tenderness. No rebound, guarding or rigidity. No organomegaly. No palpable masses. Good bowel sounds. Back: No CVA tenderness. Musculoskeletal: No edema. No cyanosis. No clubbing. Full range of motion in all extremities. Nocalf tenderness. Radial/pedal pulses are intact and 2+ bilaterally Skin: Skin is warm and dry. No petechiae. No purpura. Neurological: Alert and oriented to person, place, and time. Cranial nerves II -XII are grossly intact. Normal speech. Strength is grossly symmetric. No sensory deficits. Psychiatric: Good eye contact. Normal interaction, affect and behavior. <Racheal Menard - Last Filed: 12/11/16 13:30> - Resident Resident Name: Donna Olson - ED Attending Attestation I have performed the following: I have examined & evaluated the patient, The case was reviewed & discussed with the resident, I agree w/resident's findings & plan, Exceptions are as noted - Medical Decision Making 12/11/16 13:24 a/p: pt with mild sob after trach change yesterday with wheezing on exam -no f/c nontoxic in appearance. hx of MS, no sob currently -will give neb treatment and reassess cxr reviewed family and patient updated on the plan. trach in place no stridor 12/11/16 15:02 re-eval: no wheezing after neb. will suction daughter from [facility] called and told the resident the patient has been more sleepy re-eval pt admits to feeling more sleepy. has had hyponatremia in the past. had labs drawn yesterday that are not yet resulted. will check labs today. pt still nontoxic in appearance. 12/11/16 16:39 mildly elevated LFT, no abd pain, no n/v/d, no food intolerance, Will check RUQ u/s and reassess 12/11/16 18:05 pt with gallstones on exam with mildly elevated LFT. Pt without food intolerance. No abd pain. No n/v. NO acute hector at this time. Pt nontoxic in appearance. NO abd pain. NO abd ttp. Neg murphys. Poss chronic hector, not acute. Recommended outpt follow up with GI and Sx. Pt requesting to go home. Mother at bedside states patient looks at baseline and is nontoxic in appearnace. Pt has been talking on the phone with clear speech and nonlabored breathing during ED visit. Trach in place. Stable for d/c to home. <Vicki Blake - Last Filed: 12/11/16 18:09>
[2016-12-11] MEDS ORDERED: ALBUTEROL SO4 2.5/IPRATROPIUM 0.5 INH SOL 3 ML VIAL.NEB. NEB ONE ×2 (13:23→13:39)
[2016-12-11 14:57] LABS: BASOPHIL 0.3 % (0-2.0); MCH 31.8 pg (25.7-33.7); MCHC 32.8 g/dl (32.0-36.0); MEAN CELL VOLUME 96.8 fl (80-96); MEAN PLT VOLUME 8.8 fl (7.5-11.1); NEUTROPHILS 81.1 % (42.8-82.8); PLATELET COUNT 206 K/MM3 (134-434); RDW 14.3 % (11.6-15.6); WHITE BLOOD COUNT 7.3 K/mm3 (4.0-10.0)
[2016-12-11 15:22] LABS: ALK PHOS 336 U/L (45-117); ANION GAP 10 (8-16); BILIRUBIN,TOTAL 0.2 mg/dL (0.2-1.0); CALCIUM 9.4 mg/dL (8.5-10.1); CO2 28 mmol/L (21-32); CREATININE 0.8 mg/dL (0.55-1.02); GLUCOSE,RANDOM 103 mg/dL (74-106); MAGNESIUM 2.3 mg/dL (1.8-2.4); SGOT/AST 80 U/L (15-37); SGPT/ALT 92 U/L (12-78); TOT PROT 7.9 g/dl (6.4-8.2)
[2016-12-11 18:26] VITALS: BP 146/88; PULSE 60
== END 2016-12-11 18:26 | disposition home or self-care (01) ==
LOC: JER 12:21
PROC: 3E0F7GC Introduction of Other Therapeutic Substance into Respiratory Tract, Via Natural or Artificial Opening (ICD-10-PCS; principal; 2016-12-11)
DX: Z43.0 Encounter for attention to tracheostomy (principal); I10 Essential (primary) hypertension; G50.0 Trigeminal neuralgia
CPT/HCPCS: 36415; 71010-TC; 76705-TC; 80053; 83735; 85025; 94640; 99281-25

== ENCOUNTER 2017-02-11 13:28 | Inpatient (IN) | payer OTHER ==
--- NOTE | 2017-02-11 13:58 | PDOC ---
History of Present Illness - General Stated Complaint: WEAKNESS Time Seen by Provider: 02/11/17 13:51 - History of Present Illness Initial Comments: 52 y/o F with PMH of of MS (not currently on steroid therapy, currently trached because of secretion clearance issues and apparent respiratory muscle weakness and with indwelling perera), HTN, sleep disorders, and hypothyroidism presenting with increasing lethargy and somnolence since Wednesday. She has history of UTIs in the past and never becomes symptomatic. Last UTI was 2 months prior. Of note, she also has three decubitus wounds in her back that have been recently evaluated by the wound care staff and do not seem to be infected according to the care staff and family at the bedside. Denies current fevers, chills, nausea, vomiting, diarrhea, constipation, chest pain or other current symptoms. 02/11/17 14:25 Past History - Past Medical History Allergies/Adverse Reactions: Allergies Allergy/AdvReac Type Severity Reaction Status Date / Time chloral hydrate Allergy Intermediate Rash Verified 12/11/16 12:36 [Chloral Hydrate] azathioprine [From Imuran] Allergy Rash Verified 12/11/16 12:36 azathioprine sodium Allergy Rash Verified 12/11/16 12:36 [From Imuran] adhesive tape AdvReac Severe sensitivity Verified 12/11/16 12:36 to glue adhesive AdvReac Unknown Verified 12/11/16 12:36 Home Medications: Ambulatory Orders Clonazepam [Klonopin] 0.5 mg PO DAILY 05/08/15 Amlodipine Besylate [Norvasc -] 10 mg PO HS 02/06/16 Baclofen 0 mg IVSS ASDIR 02/06/16 Mirtazapine 7.5 mg PO DAILY 02/06/16 Pantoprazole Sodium [Protonix] 40 mg PO DAILY 02/06/16 Ferrous Sulfate [Feosol] 325 mg PO BIDWM #30 bottle MDD 2 05/21/16 Levothyroxine [Synthroid -] 100 mcg PO DAILY@0700 #30 tablet 06/24/16 Sodium Chloride Tablet - 1 gm PO DAILY #30 tablet 06/24/16 Hydralazine HCl [Apresoline -] 50 mg PO TID 02/11/17 Carbamazepine [Tegretol -] 100 mg PO TID 02/12/17 Anemia: No Asthma: No Cancer: No CVA: No COPD: No CHF: No Dementia: (M.S,TRIG.NEUROLAGIA) Diabetes: No GI Disorders: Yes Disorders: Yes (baclofen implant) HTN: Yes Hypercholesterolemia: No Liver Disease: No Seizures: Yes Thyroid Disease: No - Surgical History Abdominal Surgery: No Appendectomy: No Cardiac Surgery: No Cholecystectomy: No GI Surgery: (BACLOFEN IMPLANT) Lung Surgery: Yes (TRACH) Neurologic Surgery: No Orthopedic Surgery: No - Immunization History Immunization Up to Date: Yes - Suicide/Smoking/Psychosocial Hx Smoking Status: No Smoking History: Never smoked Have you smoked in the past 12 months: No Number of Cigarettes Smoked Daily: 0 Cigars Per Day: 0 Hx Alcohol Use: No Drug/Substance Use Hx: No Substance Use Type: None Hx Substance Use Treatment: No Review of Systems - Review of Systems Constitutional: No: Chills, Fever HEENTM: No: Blurred Vision Respiratory: No: Cough, Shortness of Breath, Productive cough Cardiac (ROS): No: Chest Pain, Irregular Heart Rate ABD/GI: Yes: Rectal Bleeding. No: Constipated, Poor Appetite, Vomiting : No: Burning, Discharge Musculoskeletal: Yes: Muscle Weakness. No: Back Pain Integumentary: Yes: Lesions. No: Bruising, Erythema Neurological: Yes: Pre-Existing Deficit *Physical Exam - Physical Exam General Appearance: Yes: Nourished, Appropriately Dressed. No: Apparent Distress HEENT: positive: EOMI, ANDRIY, Normal Voice. negative: Normal ENT Inspection ( Trach site clean dry and intact.) Neck: positive: Trachea midline, Normal Thyroid, Supple, Other (Trach in place per above). negative: Tender, Rigid Respiratory/Chest: positive: Lungs Clear, Normal Breath Sounds, Other (Moderate amount of secretions in upper airway but appears per baselien according to family at bedside.). negative: Chest Tender, Respiratory Distress, Accessory Muscle Use Cardiovascular: positive: Regular Rhythm, Regular Rate Gastrointestinal/Abdominal: positive: Normal Bowel Sounds, Flat, Soft, Other ( Flat soft abdomen with subcutaneous baclofen pump in place in RLQ without obvious fluctuance or infection.). negative: Tender Musculoskeletal: negative: Normal Inspection (Flacid bl LEs and UEs) Extremity: positive: Normal Capillary Refill, Normal Inspection. negative: Normal Range of Motion, Swelling Integumentary: positive: Normal Color, Dry, Warm, Other (Three decubitus ulcers on each gluteus and over the sacrum. The left gluteal ulcer extends deeply into the gluteus armida. All three woudns appear clean and dry with light serous drainage and without purulence or surrounding erythema.) Neurologic: positive: Fully Oriented, Alert (Alert but occasioannly ), Normal Mood/Affect, Normal Response. negative: Motor Strength 07/10 ED Treatment Course - LABORATORY CBC & Chemistry Diagram: 02/13/17 06:40 02/13/17 06:40 Medical Decision Making - Medical Decision Making 52 year old with MS presenting with decreased activity and suspected UTI as per her previous presentations. However, other causes for infection should be ruled out as well as electrolyte abnormalities and worsening of MS. Temperature 92.3 but she has been in the low 90s on previous visits and she admits to "always running low". This is likely some element of autonomic dysfunction 2/2 to her MS. 02/11/17 17:00 Labs returned with vbg CO2 at 66 and Hyponatremic to 122 with a 4.7 liter free fluid surplus. Either of these could likely be the cause of her increased lethargy. This patient warrants admission. I will start NS at 500 ml/hr which will correct her at slightly less than 0.5 meq /hr. Admitted patient under PCP, Dr. Lopez. 02/11/17 17:53 *DC/Admit/Observation/Transfer Diagnosis at time of Disposition: Lethargy, Hyponatremia - Discharge Dispostion Condition at time of disposition: Stable Admit: Yes - Referrals - Patient Instructions - Post Discharge Activity
--- NOTE | 2017-02-11 15:26 | EKG ---
Test Reason : Blood Pressure : / mmHG Vent. Rate : 046 BPM Atrial Rate : 046 BPM P-R Int : 188 ms QRS Dur : 120 ms QT Int : 476 ms P-R-T Axes : 050 020 029 degrees QTc Int : 416 ms SINUS BRADYCARDIA NON-SPECIFIC INTRA-VENTRICULAR CONDUCTION DELAY BORDERLINE ECG WHEN COMPARED WITH ECG OF 22-JUN-2016 04:09, NO SIGNIFICANT CHANGE WAS FOUND Confirmed by SLOAN LUZ MD ([id number]) on 02/11/2017 3:26:14 PM Referred By: Confirmed By:SLOAN LUZ MD
--- NOTE | 2017-02-11 16:13 | PDOC ---
Attending Attestation - Resident Resident Name: Dayan Anguiano - ED Attending Attestation I have performed the following: I have examined & evaluated the patient, The case was reviewed & discussed with the resident, I agree w/resident's findings & plan, Exceptions are as noted - HPI HPI: 02/11/17 16:09 52 F with h/o MS s/p trach, HTN, hypothyroid, recurrent UTIs, presenting to ER with about 1 week of worsening lethargy and somnolence. Family member and WAX BLEACHER state that this is usually a sign of an infection, particularly a UTI. They have not noticed any fevers or chills. Pt has not vomited or had diarrhea. They state that pt has been sleeping most of the day. Otherwise, she has been taking appropriate PO and has not appeared uncomfortable. She was last treated for UTI 2 months ago. - Physicial Exam PE: 02/11/17 16:11 "GENERAL: Asleep but arousable, in no acute distress HEAD: No signs of trauma EYES: PERRLA, EOMI, sclera anicteric, conjunctiva clear ENT: Trach collar in place NECK: Nontender, no stepoffs, Normal ROM, supple, no lymphadenopathy, JVD, or masses LUNGS: Breath sounds equal, clear to auscultation bilaterally. No wheezes, and no crackles HEART: Regular rate and rhythm, normal S1 and S2, no murmurs, rubs or gallops ABDOMEN: Soft, nontender, normoactive bowel sounds. No guarding, no rebound. No masses EXTREMITIES: Normal range of motion, no edema. No clubbing or cyanosis. No cords, erythema, or tenderness SKIN: Warm, Dry, normal turgor, no rashes or lesions noted. " - Medical Decision Making 02/11/17 16:12 52 F with increased lethargy and somnolence, concerning for infectious process. Pt has h/o recurrent UTI, so likely urinary source. Also consider PNA. Pt HD stable at this time. - Labs, UA, CXR - Cultures - Abx - Admit
[2017-02-11 16:17] LABS: BASO % 0.3 % (0-2.0); EOS % 0.2 % (0-4.5); MCH 32.7 pg (25.7-33.7); MCHC 33.4 g/dl (32.0-36.0); MEAN PLT VOLUME 10.1 fl (7.5-11.1); NEUT % 91.3 % (42.8-82.8); PLATELET COUNT 114 K/MM3 (134-434); RDW 15.1 % (11.6-15.6); WHITE BLOOD COUNT 8.7 K/mm3 (4.0-10.0)
[2017-02-11 16:55] LABS: VENOUS PH 7.28 (7.32-7.42)
[2017-02-11 17:17] LABS: INR 0.99 (0.82-1.09); PROTHROMBIN TIME (PATIENT) 11.2 SEC (9.98-11.88)
[2017-02-11 17:20] LABS: ACTIVATED PTT 49.1 SECONDS (26.9-34.4)
[2017-02-11 17:27] LABS: ALK PHOS 264 U/L (45-117); ANION GAP 7 (8-16); BILIRUBIN,TOTAL 0.2 mg/dL (0.2-1.0); CALCIUM 8.8 mg/dL (8.5-10.1); CO2 29 mmol/L (21-32); GLUCOSE,RANDOM 97 mg/dL (74-106); SGOT/AST 46 U/L (15-37); SGPT/ALT 56 U/L (12-78); TOT PROT 7.5 g/dl (6.4-8.2)
[2017-02-11] MEDS ORDERED: SODIUM CHLORIDE 0.9% 1000 ML INFUS.BAG IV ONE (17:28)
[2017-02-11] MEDS ORDERED: SODIUM CHLORIDE 1,000 ML IV SCH ×2 (18:00→18:30)
[2017-02-11] MEDS ORDERED: CEFTRIAXONE 1 GM in DEXTROSE 5%-WATER - 50 ML IVPB SCH (18:30)
[2017-02-11 19:16] LABS: METHEMOGLOBIN 0.9 % (0.4-1.5)
[2017-02-11] MEDS: CEFTRIAXONE 1 G/50 ML PREMIX 50 ML IVPB SCH (20:58)
[2017-02-11 21:10] VITALS: BMI 20.9
[2017-02-11] MEDS ORDERED: PT OWN MED DRAWER 7, Y5N ONE (21:12)
[2017-02-11] MEDS: carBAMazepine 200 MG TABLET PO SCH (21:38)
[2017-02-11] MEDS: HEPARIN NA (PORCINE) 5,000 UNITS/ML 1ML VIAL SQ SCH (21:38)
[2017-02-11] MEDS: amLODIPine BESYLATE 10 MG TABLET (FP) PO SCH (21:38)
[2017-02-11] MEDS: hydrALAZINE HCL 25 MG TABLET (FP) PO SCH (21:38)
--- NOTE | 2017-02-11 21:53 | CONSULT ---
Consultation: REQUESTING PROVIDER: CONSULT REQUEST: We have been asked to medically evaluate this patient for hypothermia and hyponatremia requiring ICU care. HISTORY OF PRESENT ILLNESS: Pt is a 52 F w/ PMH MS with quadraplegia not on steroids, s/p trach who was brought to the hospital because of lethargy. Pt was found to have hyponatremia of 122 and hypothermia. Pt has had a similar episode in the past which corrected with NS infusion. Pt has been started on NS and is no longer lethargic. Pt reports no pain or discomfort at this time. Not able to speak due to trach and vent, but she can mouth words. REVIEW OF SYSTEMS: CONSTITUTIONAL: Absent: fever, chills, diaphoresis, generalized weakness, malaise, loss of appetite, weight change HEENT: Absent: rhinorrhea, nasal congestion, throat pain, throat swelling, difficulty swallowing, mouth swelling, ear pain, eye pain, visual changes CARDIOVASCULAR: Absent: chest pain, syncope, palpitations, irregular heart rate, lightheadedness , peripheral edema RESPIRATORY: Absent: cough, shortness of breath, dyspnea with exertion, orthopnea, wheezing, stridor, hemoptysis GASTROINTESTINAL: Absent: abdominal pain, abdominal distension, nausea, vomiting, diarrhea, constipation, melena, hematochezia GENITOURINARY: Absent: dysuria, frequency, urgency, hesitancy, hematuria, flank pain, genital pain MUSCULOSKELETAL: Absent: myalgia, arthralgia, joint swelling, back pain, neck pain SKIN: Absent: rash, itching, pallor HEMATOLOGIC/IMMUNOLOGIC: Absent: easy bleeding, easy bruising, lymphadenopathy, frequent infections ENDOCRINE: Absent: unexplained weight gain, unexplained weight loss, heat intolerance, cold intolerance NEUROLOGIC: Absent: headache, focal weakness or paresthesias, dizziness, unsteady gait, seizure, mental status changes, bladder or bowel incontinence PSYCHIATRIC: Absent: anxiety, depression, suicidal or homicidal ideation, hallucinations. PHYSICAL EXAMINATION Vital Signs - 24 hr 02/11/17 02/11/17 02/11/17 13:57 17:55 20:31 Temperature 92.5 F L Pulse Rate 50 L 59 L Respiratory 18 14 16 Rate Blood Pressure 138/94 O2 Sat by Pulse 97 98 Oximetry (%) 02/11/17 02/11/17 21:04 21:07 Temperature Pulse Rate 51 L Respiratory 14 14 Rate Blood Pressure 129/48 O2 Sat by Pulse Oximetry (%) GENERAL: Awake, alert, and fully oriented, in no acute distress. HEAD: Normal with no signs of trauma. EYES: Pupils equal, round and reactive to light, extraocular movements intact, sclera anicteric, conjunctiva clear. No lid lag. EARS, NOSE, THROAT: Ears normal, nares patent, oropharynx clear without exudates. Moist mucous membranes. NECK: Normal range of motion, supple without lymphadenopathy, JVD, or masses. LUNGS: Breath sounds equal, clear to auscultation bilaterally. No wheezes, and no crackles. No accessory muscle use. HEART: Regular rate and rhythm, normal S1 and S2 without murmur, rub or gallop. ABDOMEN: Soft, nontender, not distended, normoactive bowel sounds, no guarding, no rebound, no masses. No hepatomegaly or splenomegaly. MUSCULOSKELETAL: Normal range of motion at all joints. No bony deformities or tenderness. No CVA tenderness. UPPER EXTREMITIES: 2+ pulses, warm, well-perfused. No cyanosis. No clubbing. Cap refill <2 seconds. No peripheral edema. LOWER EXTREMITIES: 2+ pulses, warm, well-perfused. No calf tenderness. No peripheral edema. NEUROLOGICAL: Cranial nerves II-XII intact. Normal speech. Normal gait. PSYCHIATRIC: Cooperative. Good eye contact. Appropriate mood and affect. SKIN: Warm, dry, normal turgor, no rashes or lesions noted. Laboratory Results - last 24 hr 02/11/17 02/11/17 02/11/17 15:30 15:30 16:32 WBC 8.7 RBC 2.95 L Hgb 9.6 L D Hct 28.9 L MCV 98.0 H MCH 32.7 MCHC 33.4 RDW 15.1 Plt Count 114 L D MPV 10.1 D Neutrophils % 91.3 H Lymphocytes % 6.5 L D Monocytes % 1.7 L Eosinophils % 0.2 Basophils % 0.3 PT with INR INR PTT (Actin FS) VBG pH POC VBG pCO2 POC VBG pO2 Mixed VBG HCO3 Carboxyhemoglobin Methemoglobin Sodium Cancelled Potassium Cancelled Chloride Cancelled Carbon Dioxide Cancelled Anion Gap Cancelled BUN Cancelled Creatinine Cancelled Creat Clearance w eGFR Cancelled Random Glucose Cancelled Lactic Acid Calcium Cancelled Total Bilirubin Cancelled AST Cancelled ALT Cancelled Alkaline Phosphatase Cancelled B-Natriuretic Peptide Total Protein Cancelled Albumin Cancelled TSH 2.16 D Blood Type Antibody Screen Spec Expiration Date 02/11/17 02/11/17 02/11/17 16:32 16:40 16:40 WBC RBC Hgb Hct MCV MCH MCHC RDW Plt Count MPV Neutrophils % Lymphocytes % Monocytes % Eosinophils % Basophils % PT with INR 11.20 INR 0.99 PTT (Actin FS) 49.1 H D VBG pH 7.28 L POC VBG pCO2 66.8 H* D POC VBG pO2 93.9 H D Mixed VBG HCO3 31.0 H Carboxyhemoglobin Methemoglobin Sodium Potassium Chloride Carbon Dioxide Anion Gap BUN Creatinine Creat Clearance w eGFR Random Glucose Lactic Acid Calcium Total Bilirubin AST ALT Alkaline Phosphatase B-Natriuretic Peptide 578.31 H Total Protein Albumin TSH Blood Type Antibody Screen Spec Expiration Date 02/11/17 02/11/17 02/11/17 16:40 16:40 16:40 WBC RBC Hgb Hct MCV MCH MCHC RDW Plt Count MPV Neutrophils % Lymphocytes % Monocytes % Eosinophils % Basophils % PT with INR INR PTT (Actin FS) VBG pH POC VBG pCO2 POC VBG pO2 Mixed VBG HCO3 Carboxyhemoglobin Methemoglobin Sodium 122 L* Potassium 4.4 Chloride 86 L D Carbon Dioxide 29 Anion Gap 7 L BUN 21 H Creatinine 1.0 D Creat Clearance w eGFR 58.00 Random Glucose 97 Lactic Acid 0.8 Calcium 8.8 Total Bilirubin 0.2 AST 46 H D ALT 56 D Alkaline Phosphatase 264 H D B-Natriuretic Peptide Total Protein 7.5 Albumin 3.0 L TSH Blood Type Cancelled Antibody Screen Cancelled Spec Expiration Date Cancelled 02/11/17 19:00 WBC RBC Hgb Hct MCV MCH MCHC RDW Plt Count MPV Neutrophils % Lymphocytes % Monocytes % Eosinophils % Basophils % PT with INR INR PTT (Actin FS) VBG pH POC VBG pCO2 POC VBG pO2 Mixed VBG HCO3 Carboxyhemoglobin 1.2 Methemoglobin 0.9 Sodium Potassium Chloride Carbon Dioxide Anion Gap BUN Creatinine Creat Clearance w eGFR Random Glucose Lactic Acid Calcium Total Bilirubin AST ALT Alkaline Phosphatase B-Natriuretic Peptide Total Protein Albumin TSH Blood Type Antibody Screen Spec Expiration Date Active Medications Generic Name Dose Route Start Last Admin Trade Name Freq PRN Reason Stop Dose Admin Amlodipine Besylate 10 mg 02/11/17 18:45 02/11/17 21:38 Norvasc - PO 10 mg DAILY CATHERINE Administration Carbamazepine 200 mg 02/11/17 22:00 02/11/17 21:38 Tegretol - PO 200 mg TID CATHERINE Administration Heparin Sodium (Porcine) 5,000 unit 02/11/17 22:00 02/11/17 21:38 Heparin - SQ 5,000 unit BID CATHERINE Administration Hydralazine HCl 25 mg 02/11/17 22:00 02/11/17 21:38 Apresoline - PO 25 mg TID CATHERINE Administration Sodium Chloride 1,000 mls @ 42 mls/hr 02/11/17 18:30 02/11/17 20:58 Normal Saline - IV 42 mls/hr ASDIR CATHERINE Administration CEFTRIAXONE 1 G/50 ML PREMIX 50 mls @ 100 mls/hr 02/11/17 21:00 02/11/17 20: 58 Ceftriaxone 1 Gm-D5w Bag IVPB 100 mls/hr DAILY CATHERINE Administration Levothyroxine Sodium 100 mcg 02/12/17 07:00 Synthroid - PO DAILY@0700 CATHERINE Mirtazapine 7.5 mg 02/12/17 10:00 Remeron - PO DAILY CATHERINE Pantoprazole Sodium 40 mg 02/12/17 10:00 Protonix - PO DAILY CATHERINE Sodium Chloride 1 gm 02/12/17 10:00 Sodium Chloride Tablet - PO DAILY CATHERINE ASSESSMENT/PLAN: Pt is a 52 F w/ PMH quadraplegia not on steroids, s/p trach who presented to ED with lethargy. Pt is admitted to ICU with hyponatremia, hypothermia, and lethargy. Neuro #Hypothermia -Resolved #MS -Quadriplegia -Stable -s/p trach for inability to clear mucus -Carbemazapine Lytes #Hyponatremia -Na of 122 on admission -Pt had a similar episode in the past which corrected with NS and free water restriction. Per pt's mother, pt drinks lots of water at home -Pt on NS. F/u labs Cardio #HTN -Norvasc -Hydralazine GI #GERD -Protonix for PPx Endo #Hypothyroid -Synthroid Psych #Depression -Mirtazapine FEN -on NS -hyponatremia -free water restriction. NPO for now PPx -Protonix -HepSubQ Dispo: We will continue to follow the patient. Thank you for this consultative opportunity. Barrie Schreiber MD PGY-1 ICU Visit type - Emergency Visit Emergency Visit: No - New Patient This patient is new to me today: Yes Date on this admission: 02/11/17 - Critical Care Critical Care patient: Yes Total Critical Care Time (in minutes): 37 Critical Care Statement: The care of this patient involved high complexity decision making to prevent further life threatening deterioration of the patient 's condition and/or to evaluate & treat vital organ system(s) failure or risk of failure.
[2017-02-12 04:08] LABS: URINE APPEARANCE CLOUDY; URINE BILIRUBIN NEGATIVE (NEGATIVE); URINE BLOOD NEGATIVE (NEGATIVE); URINE COLOR YELLOW; URINE GLUCOSE (UA) 3+ (NEGATIVE); URINE KETONE NEGATIVE (NEGATIVE); URINE NITRITE POSITIVE (NEGATIVE); URINE PROTEIN NEGATIVE (NEGATIVE); URINE UROBILINOGEN NEGATIVE mg/dL (0.2-1.0)
[2017-02-12 04:10] LABS: URINE LEUK ESTERASE 2+ (NEGATIVE)
[2017-02-12 04:12] LABS: URINE BACTERIA MANY /hpf (NONE SEEN); URINE HYALINE CAST 2 /lpf; URINE RBC 1 /hpf (0-3); URINE WBC 10 /hpf (3-5)
[2017-02-12] MEDS ORDERED: DEXTROSE 50%-WATER - 25 GM/50 ML VIAL IVPUSH ONE (05:42)
[2017-02-12 06:16] LABS: BASO % 0.2 % (0-2.0); EOS % 0.4 % (0-4.5); MCH 33.4 pg (25.7-33.7); MCHC 34.6 g/dl (32.0-36.0); MEAN CELL VOLUME 96.7 fl (80-96); MEAN PLT VOLUME 9.8 fl (7.5-11.1); NEUT % 84.4 % (42.8-82.8); PLATELET COUNT 130 K/MM3 (134-434); RDW 14.7 % (11.6-15.6); WHITE BLOOD COUNT 6.7 K/mm3 (4.0-10.0)
[2017-02-12] MEDS ORDERED: DEXTROSE 50%-WATER 25 GM/50 ML DISP.SYRIN ONE (06:27)
[2017-02-12] MEDS: hydrALAZINE HCL 25 MG TABLET (FP) PO SCH ×3 (06:37→21:40)
[2017-02-12] MEDS: carBAMazepine 200 MG TABLET PO SCH ×3 (06:37→21:45)
[2017-02-12 06:42] LABS: ALBUMIN 2.7 g/dl (3.4-5.0); BILIRUBIN,TOTAL 0.4 mg/dL (0.2-1.0); CALCIUM 9.1 mg/dL (8.5-10.1); CO2 30 mmol/L (21-32); GLUCOSE,RANDOM 57 mg/dL (74-106); MAGNESIUM 1.8 mg/dL (1.8-2.4); PHOSPHOROUS 2.7 mg/dL (2.5-4.9); SGOT/AST 34 U/L (15-37); SGPT/ALT 43 U/L (12-78); TOT PROT 6.3 g/dl (6.4-8.2)
[2017-02-12 06:55] LABS: ANION GAP 8 (8-16)
[2017-02-12] MEDS ORDERED: LEVOTHYROXINE NA 100 MCG TABLET (FP) PO SCH (07:00)
[2017-02-12 08:17] LABS: ALK PHOS 204 U/L (45-117)
--- NOTE | 2017-02-12 09:03 | CON.NEP ---
Consult Consult Specialty:: Nephrology Referred by:: Dr Lopez Reason for Consultation:: hyponatremia - History of Present Illness History of Present Illness: 52 year old very unfortunate lady with MS Lives home chair bound has aids and a mother h/o recurrent hyponatremia DRinks 5 glasses of 16 oz water + a lot of juice Lately as per aid eating less solid food Na 122 Na 130 this am Speech and swallow eval noted Not on steroids No adrenal insufficiency TSH normal - History Source History Provided By: Medical Record, Caregiver - Past Medical History [employer] ATTENDANT: Yes: Multiple Sclerosis (quadraplegia), Other (legally blind, trigeminal neuralgia -> baclofen pump) Cardio/Vascular: Yes: HTN, Hyperlipdemia Pulmonary: Yes: Pneumonia, Previously Intubated, Other Gastrointestinal: Yes: Constipation (chronic) Renal/: Yes: Neurogenic Bladder ( neurogenic bladder, chronic perera catheter) ...LMP: 06/07/12 Infectious Disease: Yes: Other (pneumonia, uti treated by urologist) Musculoskeletal: Yes: Other Dermatology: Yes: Other (chronic decubitus followed by wound care) Additional Medical History: trigeminal neuralgia, baclofen pump. chronic decubitus followed by wound care. neurogenic bladder, chronic perera catheter - Alcohol/Substance Use Hx Alcohol Use: No History of Substance Use: reports: None - Smoking History Smoking history: Never smoked Have you smoked in the past 12 months: No Aproximately how many cigarettes per day: 0 - Social History Usual Living Arrangement: With Parent ADL: Support Services History of Recent Travel: No Home Medications - Allergies Allergies/Adverse Reactions: Allergies Allergy/AdvReac Type Severity Reaction Status Date / Time chloral hydrate Allergy Intermediate Rash Verified 12/11/16 12:36 [Chloral Hydrate] azathioprine [From Imuran] Allergy Rash Verified 12/11/16 12:36 azathioprine sodium Allergy Rash Verified 12/11/16 12:36 [From Imuran] adhesive tape AdvReac Severe sensitivity Verified 12/11/16 12:36 to glue adhesive AdvReac Unknown Verified 12/11/16 12:36 - Home Medications Home Medications: Ambulatory Orders Clonazepam [Klonopin] 0.5 mg PO DAILY 05/08/15 Amlodipine Besylate [Norvasc -] 10 mg PO HS 02/06/16 Baclofen 0 mg IVSS ASDIR 02/06/16 Mirtazapine 7.5 mg PO DAILY 02/06/16 Pantoprazole Sodium [Protonix] 40 mg PO DAILY 02/06/16 Ferrous Sulfate [Feosol] 325 mg PO BIDWM #30 bottle MDD 2 05/21/16 Levothyroxine [Synthroid -] 100 mcg PO DAILY@0700 #30 tablet 06/24/16 Sodium Chloride Tablet - 1 gm PO DAILY #30 tablet 06/24/16 Hydralazine HCl [Apresoline -] 50 mg PO TID 02/11/17 Carbamazepine [Tegretol -] 100 mg PO TID 02/12/17 Family Disease History - Family Disease History Family Disease History: Other: Mother Nephrology Consult - Height Height: 5 ft 11 in - Weight Weight: 150 lb 9.6 oz - BMI Body Mass Index (BMI): 20.9 - Lab Results CBC,BMP: CBC, BMP 02/12/17 05:55 02/12/17 05:55 Anion Gap: Anion Gap Anion Gap 8 (8-16) 02/12/17 05:55 - Imaging Chest X-ray: Report Reviewed - Physical Examination Vital Signs: Vital Signs Temperature 95.1 F L 02/12/17 06:00 Pulse Rate 76 02/12/17 08:00 Respiratory Rate 14 02/12/17 08:00 Blood Pressure 122/71 02/12/17 08:00 O2 Sat by Pulse Oximetry (%) 95 02/12/17 06:49 Neck: Yes: Other Edema: No Assessment/Plan 52 with MS lives home with care acute on chronic hyponatremia related to excessive free water intake as per aid not eating much solid food /protein can dc fluids Fluid restrict to 1500 cc a day encourage food euthyroid on tegretol and remeron but thats a constant HTN stop hydralazine leave on a single agent norvasc and see how she does Mix all meds in NS case d/w nurse and resident Will follow
[2017-02-12] MEDS ORDERED: PT OWN MED DRAWER 7, Y5N ONE ×3 (09:46→21:37)
[2017-02-12] MEDS: HEPARIN NA (PORCINE) 5,000 UNITS/ML 1ML VIAL SQ SCH ×2 (09:48→21:39)
[2017-02-12] MEDS: CEFTRIAXONE 1 G/50 ML PREMIX 50 ML IVPB SCH (09:48)
[2017-02-12] MEDS: amLODIPine BESYLATE 10 MG TABLET (FP) PO SCH (09:48)
[2017-02-12 09:54] LABS: ARTERIAL BLD GAS O2 SATURATION 99.4 % (90-98.9); ARTERIAL BLOOD GAS BASE EXCESS 6.5 meq/l (-2-2); ARTERIAL BLOOD GAS HCO3 30.2 meq/L (22-26); ARTERIAL BLOOD GAS pH 7.49 (7.35-7.45)
[2017-02-12 09:56] LABS: ALLENS TEST POSITIVE
[2017-02-12 09:57] LABS: ART PUNCT SITE RIGHT RADIAL
[2017-02-12] MEDS ORDERED: SODIUM CHLORIDE 1 GM TABLET PO SCH (10:00)
[2017-02-12] MEDS ORDERED: MIRTAZAPINE 15 MG TABLET (FP) PO SCH (10:00)
[2017-02-12] MEDS ORDERED: PANTOPRAZOLE 40 MG TABLET (FP) PO SCH (10:00)
--- NOTE | 2017-02-12 10:10 | PN ---
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) history of MRSA bacteremia 2014 recent barium swallow 02/10/17- no aspiration noted admitted with lethargy and increased somnalence since the weekend na 122 in ED, has been drinking alot of water no fevers or chills perera changed every two weeks suspect lethargy secondary to hyponatremia, improved today ?medication related- sertraline ncreased from 50 to 100 on Wednesday as well by PMD doubt infection- no fever, normal WBC, suggest d/c rocephin and f/u cultures chronic respiratory failure MS Problem List - Problems (1) Altered mental status Code(s): R41.82 - ALTERED MENTAL STATUS, UNSPECIFIED Qualifiers: Altered mental status type: unspecified Qualified Code(s): R41.82 - Altered mental status, unspecified (2) Hyponatremia Code(s): E87.1 - HYPO-OSMOLALITY AND HYPONATREMIA (3) Chronic hypercapnic respiratory failure Code(s): J96.12 - CHRONIC RESPIRATORY FAILURE WITH HYPERCAPNIA (4) Hx of multiple sclerosis Code(s): Z86.69 - PERSONAL HISTORY OF DIS OF THE NERVOUS SYS AND SENSE ORGANS
--- NOTE | 2017-02-12 12:27 | PN ---
Teaching Attending Note Name of Resident: Reuben Marin ATTENDING PHYSICIAN STATEMENT I saw and evaluated the patient. I reviewed the resident's note and discussed the case with the resident. I agree with the resident's findings and plan as documented. SUBJECTIVE: Patient seen and examined in the ICU. Awake and interactive. NAD on AC Mode of vent. No pressors. Sodium improving. Intake & Output 02/09/17 02/10/17 02/11/17 02/12/17 23:59 23:59 23:59 23:59 Intake Total 320 280 Output Total 1000 1000 Balance -680 -720 Weight 150 lb 9.6 oz 150 lb 9.6 oz Last Vital Signs Temp Pulse Resp BP Pulse Ox 95.1 F L 76 14 102/51 97 02/12/17 06:00 02/12/17 10:28 02/12/17 12:10 02/12/17 10:00 02/12/17 10:28 Active Medications Amlodipine Besylate (Norvasc -) 10 mg PO DAILY [facility] Last Admin: 02/12/17 09:48 Dose: 10 mg Carbamazepine (Tegretol -) 200 mg PO TID [facility] Last Admin: 02/12/17 06:37 Dose: 200 mg Heparin Sodium (Porcine) (Heparin -) 5,000 unit SQ BID [facility] Last Admin: 02/12/17 09:48 Dose: 5,000 unit Hydralazine HCl (Apresoline -) 25 mg PO TID [facility] Last Admin: 02/12/17 06:37 Dose: 25 mg Sodium Chloride (Normal Saline -) 1,000 mls @ 42 mls/hr IV ASDIR [facility] Last Admin: 02/11/17 20:58 Dose: 42 mls/hr Levothyroxine Sodium (Synthroid -) 100 mcg PO DAILY@0700 [facility] Last Admin: 02/12/17 06:37 Dose: 100 mcg Mirtazapine (Remeron -) 7.5 mg PO DAILY [facility] Last Admin: 02/12/17 09:49 Dose: 7.5 mg Pantoprazole Sodium (Protonix -) 40 mg PO DAILY [facility] Last Admin: 02/12/17 09:48 Dose: 40 mg Sodium Chloride (Sodium Chloride Tablet -) 1 gm PO DAILY [facility] GENERAL: Awake, alert, interactive HEAD: Normal with no signs of trauma. EYES: Pupils equal, round and reactive to light, extraocular movements intact, sclera anicteric, conjunctiva clear. No lid lag. EARS, NOSE, THROAT: Ears normal, nares patent, oropharynx clear without exudates. Moist mucous membranes. NECK: Normal range of motion, supple without lymphadenopathy, JVD, or masses. LUNGS: Decreased BS at the bases, No wheezes. HEART: Regular rate and rhythm, normal S1 and S2 without murmur, rub or gallop. ABDOMEN: Soft, nontender, not distended, normoactive bowel sounds, no guarding, no rebound, no masses. No hepatomegaly or splenomegaly. MUSCULOSKELETAL: Normal range of motion at all joints. No bony deformities or tenderness. No CVA tenderness. UPPER EXTREMITIES: 2+ pulses, warm, well-perfused. No cyanosis. No clubbing. Cap refill <2 seconds. No peripheral edema. LOWER EXTREMITIES: 2+ pulses, warm, well-perfused. No calf tenderness. No peripheral edema. NEUROLOGICAL: No gross change from baseline PSYCHIATRIC: Cooperative. SKIN: Warm, dry, normal turgor, no rashes or lesions noted. Laboratory Results - last 24 hr 02/11/17 02/11/17 02/11/17 15:30 15:30 16:32 WBC 8.7 RBC 2.95 L Hgb 9.6 L D Hct 28.9 L MCV 98.0 H MCH 32.7 MCHC 33.4 RDW 15.1 Plt Count 114 L D MPV 10.1 D Neutrophils % 91.3 H Lymphocytes % 6.5 L D Monocytes % 1.7 L Eosinophils % 0.2 Basophils % 0.3 PT with INR INR PTT (Actin FS) Puncture Site ABG pH ABG pCO2 at Pt Temp ABG pO2 at Pt Temp ABG HCO3 ABG O2 Sat (Measured) ABG O2 Content ABG Base Excess [place] Test VBG pH POC VBG pCO2 POC VBG pO2 Mixed VBG HCO3 Carboxyhemoglobin Methemoglobin PEEP Sodium Cancelled Potassium Cancelled Chloride Cancelled Carbon Dioxide Cancelled Anion Gap Cancelled BUN Cancelled Creatinine Cancelled Creat Clearance w eGFR Cancelled POC Glucometer Random Glucose Cancelled Lactic Acid Calcium Cancelled Phosphorus Magnesium Total Bilirubin Cancelled AST Cancelled ALT Cancelled Alkaline Phosphatase Cancelled B-Natriuretic Peptide Total Protein Cancelled Albumin Cancelled TSH 2.16 D Urine Color Urine Appearance Urine pH Ur Specific [place] Urine Protein Urine Glucose (UA) Urine Ketones Urine Blood Urine Nitrite Urine Bilirubin Urine Urobilinogen Urine WBC (Auto) Urine RBC (Auto) Ur Epithelial Cells Urine Bacteria Hyaline Casts Blood Type Antibody Screen Spec Expiration Date 02/11/17 02/11/17 02/11/17 16:32 16:40 16:40 WBC RBC Hgb Hct MCV MCH MCHC RDW Plt Count MPV Neutrophils % Lymphocytes % Monocytes % Eosinophils % Basophils % PT with INR 11.20 INR 0.99 PTT (Actin FS) 49.1 H D Puncture Site ABG pH ABG pCO2 at Pt Temp ABG pO2 at Pt Temp ABG HCO3 ABG O2 Sat (Measured) ABG O2 Content ABG Base Excess [place] Test VBG pH 7.28 L POC VBG pCO2 66.8 H* D POC VBG pO2 93.9 H D Mixed VBG HCO3 31.0 H Carboxyhemoglobin Methemoglobin PEEP Sodium Potassium Chloride Carbon Dioxide Anion Gap BUN Creatinine Creat Clearance w eGFR POC Glucometer Random Glucose Lactic Acid Calcium Phosphorus Magnesium Total Bilirubin AST ALT Alkaline Phosphatase B-Natriuretic Peptide 578.31 H Total Protein Albumin TSH Urine Color Urine Appearance Urine pH Ur Specific [place] Urine Protein Urine Glucose (UA) Urine Ketones Urine Blood Urine Nitrite Urine Bilirubin Urine Urobilinogen Urine WBC (Auto) Urine RBC (Auto) Ur Epithelial Cells Urine Bacteria Hyaline Casts Blood Type Antibody Screen Spec Expiration Date 02/11/17 02/11/17 02/11/17 16:40 16:40 16:40 WBC RBC Hgb Hct MCV MCH MCHC RDW Plt Count MPV Neutrophils % Lymphocytes % Monocytes % Eosinophils % Basophils % PT with INR INR PTT (Actin FS) Puncture Site ABG pH ABG pCO2 at Pt Temp ABG pO2 at Pt Temp ABG HCO3 ABG O2 Sat (Measured) ABG O2 Content ABG Base Excess [place] Test VBG pH POC VBG pCO2 POC VBG pO2 Mixed VBG HCO3 Carboxyhemoglobin Methemoglobin PEEP Sodium 122 L* Potassium 4.4 Chloride 86 L D Carbon Dioxide 29 Anion Gap 7 L BUN 21 H Creatinine 1.0 D Creat Clearance w eGFR 58.00 POC Glucometer Random Glucose 97 Lactic Acid 0.8 Calcium 8.8 Phosphorus Magnesium Total Bilirubin 0.2 AST 46 H D ALT 56 D Alkaline Phosphatase 264 H D B-Natriuretic Peptide Total Protein 7.5 Albumin 3.0 L TSH Urine Color Urine Appearance Urine pH Ur Specific [place] Urine Protein Urine Glucose (UA) Urine Ketones Urine Blood Urine Nitrite Urine Bilirubin Urine Urobilinogen Urine WBC (Auto) Urine RBC (Auto) Ur Epithelial Cells Urine Bacteria Hyaline Casts Blood Type Cancelled Antibody Screen Cancelled Spec Expiration Date Cancelled 02/11/17 02/11/17 02/12/17 17:39 19:00 05:37 WBC RBC Hgb Hct MCV MCH MCHC RDW Plt Count MPV Neutrophils % Lymphocytes % Monocytes % Eosinophils % Basophils % PT with INR INR PTT (Actin FS) Puncture Site ABG pH ABG pCO2 at Pt Temp ABG pO2 at Pt Temp ABG HCO3 ABG O2 Sat (Measured) ABG O2 Content ABG Base Excess [place] Test VBG pH POC VBG pCO2 POC VBG pO2 Mixed VBG HCO3 Carboxyhemoglobin 1.2 Methemoglobin 0.9 PEEP Sodium Potassium Chloride Carbon Dioxide Anion Gap BUN Creatinine Creat Clearance w eGFR POC Glucometer [id number] Random Glucose Lactic Acid Calcium Phosphorus Magnesium Total Bilirubin AST ALT Alkaline Phosphatase B-Natriuretic Peptide Total Protein Albumin TSH Urine Color Yellow Urine Appearance Cloudy Urine pH 6.0 Ur Specific [place] 1.008 Urine Protein Negative Urine Glucose (UA) 3+ H Urine Ketones Negative Urine Blood Negative Urine Nitrite Positive Urine Bilirubin Negative Urine Urobilinogen Negative Urine WBC (Auto) 10 Urine RBC (Auto) 1 Ur Epithelial Cells Rare Urine Bacteria Many Hyaline Casts 2 Blood Type Antibody Screen Spec Expiration Date 02/12/17 02/12/17 02/12/17 05:55 05:55 09:36 WBC 6.7 RBC 2.71 L Hgb 9.1 L Hct 26.2 L MCV 96.7 H MCH 33.4 MCHC 34.6 RDW 14.7 Plt Count 130 L MPV 9.8 Neutrophils % 84.4 H Lymphocytes % 11.2 D Monocytes % 3.8 D Eosinophils % 0.4 D Basophils % 0.2 PT with INR INR PTT (Actin FS) Puncture Site Right radial ABG pH 7.49 H ABG pCO2 at Pt Temp 40.4 ABG pO2 at Pt Temp 147.0 H D ABG HCO3 30.2 H ABG O2 Sat (Measured) 99.4 H ABG O2 Content 12.5 L ABG Base Excess 6.5 H Howard Test Positive VBG pH POC VBG pCO2 POC VBG pO2 Mixed VBG HCO3 Carboxyhemoglobin Methemoglobin PEEP 5.0 Sodium 130 L Potassium 4.1 Chloride 92 L Carbon Dioxide 30 Anion Gap 8 BUN 20 H Creatinine 1.0 Creat Clearance w eGFR 58.00 POC Glucometer Random Glucose 57 L D Lactic Acid Calcium 9.1 Phosphorus 2.7 D Magnesium 1.8 D Total Bilirubin 0.4 D AST 34 D ALT 43 D Alkaline Phosphatase 204 H D B-Natriuretic Peptide Total Protein 6.3 L Albumin 2.7 L TSH Urine Color Urine Appearance Urine pH Ur Specific [place] Urine Protein Urine Glucose (UA) Urine Ketones Urine Blood Urine Nitrite Urine Bilirubin Urine Urobilinogen Urine WBC (Auto) Urine RBC (Auto) Ur Epithelial Cells Urine Bacteria Hyaline Casts Blood Type Antibody Screen Spec Expiration Date ASSESSMENT/PLAN: Symptomatic Hyponatremia due to suspected poor solute intake MS with quadraplegia Tracheostomy Chronic Respiratory Failure HTN GERD Hypothyroidism Depression Low clinical suspicion of PNA Fluid restriction Trach collar Vent support QHS and PRN VTE prophylaxis Agree with ID to monitor off ABX for now Vent Floor Dr Fox Critical care time spent in reviewing chart, evaluating patient and formulating plan - 40 minutes.
[2017-02-12] MEDS: SODIUM CHLORIDE 1,000 ML IV SCH (13:30)
--- NOTE | 2017-02-12 14:10 | HP ---
Admitting History and Physical - Primary Care Physician PCP: Anne Lopez - Admission History of Present Illness: 52 y/o F with PMH of of MS (not currently on steroid therapy, currently trached because of secretion clearance issues and apparent respiratory muscle weakness and with indwelling perera), HTN, sleep disorders, and hypothyroidism presenting with increasing lethargy and somnolence since Wednesday. She has history of UTIs in the past and never becomes symptomatic. Last UTI was 2 months prior. Of note, she also has three decubitus wounds in her back that have been recently evaluated by the wound care staff and do not seem to be infected according to the care staff and family at the bedside. Denies current fevers, chills, nausea, vomiting, diarrhea, constipation, chest pain or other current symptoms. 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: Multiple Sclerosis (quadraplegia), Other (legally blind, trigeminal neuralgia -> baclofen pump) Cardiovascular: Yes: HTN, Hyperlipdemia Pulmonary: Yes: Pneumonia, Previously Intubated, Other Gastrointestinal: Yes: Constipation (chronic) Renal/: Yes: Neurogenic Bladder ( neurogenic bladder, chronic perera catheter) ...LMP: 06/07/12 Heme/Onc: Yes: Anemia Infectious Disease: Yes: Other (pneumonia, uti treated by urologist) Musculoskeletal: Yes: Other Dermatology: Yes: Other (chronic decubitus followed by wound care) - Smoking History Smoking history: Never smoked Have you smoked in the past 12 months: No Aproximately how many cigarettes per day: 0 - Alcohol/Substance Use Hx Alcohol Use: No History of Substance Use: reports: None - Social History ADL: Support Services History of Recent Travel: No Home Medications - Allergies Allergies/Adverse Reactions: Allergies Allergy/AdvReac Type Severity Reaction Status Date / Time chloral hydrate Allergy Intermediate Rash Verified 12/11/16 12:36 [Chloral Hydrate] azathioprine [From Imuran] Allergy Rash Verified 12/11/16 12:36 azathioprine sodium Allergy Rash Verified 12/11/16 12:36 [From Imuran] adhesive tape AdvReac Severe sensitivity Verified 12/11/16 12:36 to glue adhesive AdvReac Unknown Verified 12/11/16 12:36 - Home Medications Home Medications: Ambulatory Orders Clonazepam [Klonopin] 0.5 mg PO DAILY 05/08/15 Amlodipine Besylate [Norvasc -] 10 mg PO HS 02/06/16 Baclofen 0 mg IVSS ASDIR 02/06/16 Mirtazapine 7.5 mg PO DAILY 02/06/16 Pantoprazole Sodium [Protonix] 40 mg PO DAILY 02/06/16 Ferrous Sulfate [Feosol] 325 mg PO BIDWM #30 bottle MDD 2 05/21/16 Levothyroxine [Synthroid -] 100 mcg PO DAILY@0700 #30 tablet 06/24/16 Sodium Chloride Tablet - 1 gm PO DAILY #30 tablet 06/24/16 Hydralazine HCl [Apresoline -] 50 mg PO TID 02/11/17 Carbamazepine [Tegretol -] 100 mg PO TID 02/12/17 Family Disease History - Family Disease History Family Disease History: Other: Mother Review of Systems - Review of Systems Constitutional: reports: Lethargy, Weakness, Other (tired and sleepy) Physical Examination Vital Signs: Vital Signs Temperature 99.6 F 02/12/17 10:30 Pulse Rate 92 H 02/12/17 12:00 Respiratory Rate 14 02/12/17 12:10 Blood Pressure 167/68 02/12/17 12:00 O2 Sat by Pulse Oximetry (%) 96 02/12/17 13:16 Constitutional: Yes: Calm, Thin Neck: Yes: Other (trach) Respiratory: Yes: CTA Bilaterally, Mechanically Ventilated Gastrointestinal: Yes: Normal Bowel Sounds, Soft Renal/: Yes: Perera Present Edema: No Neurological: Yes: Pre-Existing Deficit Labs: CBC, BMP 02/12/17 05:55 02/12/17 05:55 Problem List - Problems (1) Hyponatremia Assessment/Plan: currently in ICU fluid restrict stop ivf recheck BMP renal on board salt tablets Code(s): E87.1 - HYPO-OSMOLALITY AND HYPONATREMIA (2) Hx of multiple sclerosis Assessment/Plan: with funtional quadraplegia frequent turn and postion dvt ppx Code(s): Z86.69 - PERSONAL HISTORY OF DIS OF THE NERVOUS SYS AND SENSE ORGANS (3) Hypothyroid Assessment/Plan: on synthroid Code(s): E03.9 - HYPOTHYROIDISM, UNSPECIFIED (4) Neurogenic bladder Assessment/Plan: chronic indwelling catheter changed every 2 weeks no need for abx for now Code(s): N31.9 - NEUROMUSCULAR DYSFUNCTION OF BLADDER, UNSPECIFIED (5) Chronic respiratory failure Assessment/Plan: on vent support QHS and prn as needed trach collar Code(s): J96.10 - CHRONIC RESPIRATORY FAILURE, UNSP W HYPOXIA OR HYPERCAPNIA (6) HTN (hypertension) Assessment/Plan: [facility] BP is high 167/68 on hydralazine Code(s): I10 - ESSENTIAL (PRIMARY) HYPERTENSION
[2017-02-12 16:40] LABS: ANION GAP 7 (8-16); CALCIUM 8.5 mg/dL (8.5-10.1); CO2 29 mmol/L (21-32); CREATININE 1.1 mg/dL (0.55-1.02); GLUCOSE,RANDOM 71 mg/dL (74-106)
--- NOTE | 2017-02-12 17:21 | CONS ---
INFECTIOUS DISEASE CONSULTATION DATE OF CONSULTATION: DATE OF DICTATION: 02/12/2017 HISTORY OF PRESENT ILLNESS: This is a 52-year-old woman who lives at home. She has multiple sclerosis and is bedbound. She has chronic respiratory failure, has a tracheostomy, and is on nighttime ventilation. As well, she has a chronic Raza catheter that is changed every 2 weeks. She has a history of hypothermia as well as hyponatremia in the past. 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 She had a recent barium swallow done on February 10, that showed no aspiration. She was admitted on the with lethargy and increased somnolence since the weekend. Her sodium was noted to be 122 in the emergency room. She reports she has been drinking a lot of water at home. There have been no reports of fevers or chills. Her Raza is changed every 2 weeks. She has chronic sacral ulcers, followed at wound care by Dr. Miranda. As well, her mother reports that she was seen on Wednesday at the doctor's office and her sertraline was increased from 50 to 100 and she questions whether this could be contributing to her lethargy. PAST MEDICAL HISTORY: Notable for MS. She has a history of trigeminal neuralgia. She has a baclofen implant, chronic Raza catheter, hypertension. She is status post tracheostomy, history of pneumonia and UTIs in the past. She is hypothyroid and has functional quadriplegia. She has chronic stasis sacral ulcers as well. MEDICATIONS AT HOME: Include carbamazepine, hydralazine, baclofen, amlodipine, levothyroxine, ferrous sulfate, clonazepam, sodium chloride, Protonix, and mirtazapine. SOCIAL HISTORY: She lives at home with her family, is actively involved in her care. She has 24-hour aides at home. REVIEW OF SYSTEMS: As per HPI. PHYSICAL EXAMINATION: Vital Signs: Temperature is 95.1, pulse is 76, blood pressure is 122/71, respiratory rate is 14. General: She is awake and alert. She is able to speak. HEENT: She is normocephalic. Her eyes are anicteric. Neck: She has a tracheostomy in place. Lungs: Diminished breath sounds at the bases. Heart: Regular rate and rhythm. Abdomen: Soft. The pump is palpable. Nontender. Genitalia: She has a Raza in place. Skin: She has 3 sacral ulcers, all of which appear clean without any purulence. Extremities: Without edema. LABORATORY DATA: Notable for a white count of 6.7, hemoglobin 9.1, platelets are 130. INR is 0.9. BUN is 20 and creatinine 1. Sodium is corrected from 122 to 130. LFTs are notable for alkaline phosphatase of 204. TSH was checked and is normal. Urinalysis has 10 white cells. Blood and urine cultures are pending. Chest x-ray has mild bibasilar atelectatic changes at the bases. In summary, this is a 52-year-old woman with multiple sclerosis, bedbound at home, admitted with lethargy, I suspect secondary to hyponatremia. She has had no fevers or chills. Lethargy is improved today. Possibly medication related as well as her sertraline dose was doubled. Doubt infection. No fevers. Normal white count. Suggesting stopping her Rocephin and following up her cultures. Chronic respiratory failure. Multiple sclerosis. Further recommendations to follow. Alethea [id number]
[2017-02-12 17:38] LABS: URINE LEUK ESTERASE TRACE (NEGATIVE)
[2017-02-12 20:09] LABS: URINE APPEARANCE TURBID; URINE BILIRUBIN NEGATIVE (NEGATIVE); URINE BLOOD NEGATIVE (NEGATIVE); URINE COLOR DKYELLOW; URINE GLUCOSE (UA) 2+ (NEGATIVE); URINE KETONE TRACE (NEGATIVE); URINE NITRITE NEGATIVE (NEGATIVE); URINE PROTEIN NEGATIVE (NEGATIVE); URINE UROBILINOGEN NEGATIVE mg/dL (0.2-1.0)
[2017-02-12 20:18] LABS: URINE LEUK ESTERASE 3+ (NEGATIVE)
[2017-02-12 20:38] LABS: URINE BACTERIA FEW /hpf (NONE SEEN); URINE MUCUS MANY; URINE RBC 1 /hpf (0-3); URINE WBC 6 /hpf (3-5)
[2017-02-12 22:59] LABS: URINE LEUK ESTERASE 3+ (NEGATIVE)
[2017-02-13] MEDS: carBAMazepine 200 MG TABLET PO SCH ×3 (06:57→22:02)
[2017-02-13] MEDS: hydrALAZINE HCL 25 MG TABLET (FP) PO SCH ×3 (06:57→22:02)
[2017-02-13] MEDS: LEVOTHYROXINE NA 100 MCG TABLET (FP) PO SCH (06:57)
[2017-02-13 07:24] LABS: BASO % 0.1 % (0-2.0); EOS % 0.1 % (0-4.5); MCH 32.3 pg (25.7-33.7); MCHC 33.3 g/dl (32.0-36.0); MEAN CELL VOLUME 96.9 fl (80-96); NEUT % 89.7 % (42.8-82.8); PLATELET COUNT 113 K/MM3 (134-434); RDW 14.9 % (11.6-15.6); WHITE BLOOD COUNT 12.2 K/mm3 (4.0-10.0)
[2017-02-13 08:02] LABS: ALBUMIN 2.5 g/dl (3.4-5.0); ANION GAP 9 (8-16); CALCIUM 9.1 mg/dL (8.5-10.1); CO2 29 mmol/L (21-32); CREATININE 1.1 mg/dL (0.55-1.02); GLUCOSE,RANDOM 60 mg/dL (74-106); SGOT/AST 33 U/L (15-37); SGPT/ALT 33 U/L (12-78)
[2017-02-13 08:04] LABS: ALK PHOS 190 U/L (45-117); BILIRUBIN,TOTAL 0.4 mg/dL (0.2-1.0); TOT PROT 6.4 g/dl (6.4-8.2)
[2017-02-13] MEDS ORDERED: LEVOFLOXACIN 500 MG IVPB 500 MG/100 ML BAG IVPB ONE (10:26)
[2017-02-13] MEDS ORDERED: CEFTRIAXONE 2 GM in DEXTROSE 5%-WATER - 100 ML IVPB SCH (10:30)
--- NOTE | 2017-02-13 10:30 | PN ---
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, Physician - Current Medication List Current Medications: Active Medications Amlodipine Besylate (Norvasc -) 10 mg PO DAILY [facility] Carbamazepine (Tegretol -) 200 mg PO TID [facility] Last Admin: 02/13/17 06:57 Dose: 200 mg Heparin Sodium (Porcine) (Heparin -) 5,000 unit SQ BID [facility] Last Admin: 02/12/17 21:39 Dose: 5,000 unit Hydralazine HCl (Apresoline -) 25 mg PO TID [facility] Last Admin: 02/13/17 06:57 Dose: 25 mg Sodium Chloride (Normal Saline -) 1,000 mls @ 42 mls/hr IV ASDIR [facility] Last Admin: 02/12/17 13:30 Dose: 42 mls/hr Ceftriaxone Sodium 2 gm/ (Dextrose) 100 mls @ 200 mls/hr IVPB DAILY [facility] Potassium Chloride/Dextrose/Sod Cl (D5-1/2ns+20 Meq Kcl -) 20 meq in 1,000 mls @ 83 mls/hr IV ASDIR [facility] Levofloxacin (Levaquin 500 Mg Premixed Ivpb -) 500 mg in 100 mls @ 100 mls/hr IVPB ONCE ONE Stop: 02/13/17 11:25 Levothyroxine Sodium (Synthroid -) 100 mcg PO DAILY@0700 [facility] Last Admin: 02/13/17 06:57 Dose: 100 mcg Mirtazapine (Remeron -) 7.5 mg PO DAILY [facility] Pantoprazole Sodium (Protonix -) 40 mg PO DAILY [facility] Sodium Chloride (Sodium Chloride Tablet -) 1 gm PO DAILY [facility] - Objective Vital Signs: Vital Signs Temperature 99.7 F H 02/13/17 06:00 Pulse Rate 110 H 02/13/17 06:00 Respiratory Rate 16 02/13/17 06:50 Blood Pressure 137/55 02/13/17 06:00 O2 Sat by Pulse Oximetry (%) 100 02/13/17 02:00 Cardiovascular: Yes: Regular Rate and Rhythm Respiratory: Yes: Diminished, Rhonchi Gastrointestinal: Yes: Normal Bowel Sounds, Soft Labs: CBC, BMP 02/13/17 06:40 02/13/17 06:40 INR, PTT INR 0.99 (0.82-1.09) 02/11/17 16:40 Assessment/Plan - Problems (1) Hyponatremia Assessment/Plan: recheck [facility] renal on board salt tablets Code(s): E87.1 - HYPO-OSMOLALITY AND HYPONATREMIA (2) Hx of multiple sclerosis Assessment/Plan: with functional quadriplegia frequent turn and position dvt ppx Code(s): Z86.69 - PERSONAL HISTORY OF DIS OF THE NERVOUS SYS AND SENSE ORGANS (3) Hypothyroid Assessment/Plan: on synthroid Code(s): E03.9 - HYPOTHYROIDISM, UNSPECIFIED (4) Neurogenic bladder Assessment/Plan: chronic indwelling catheter changed every 2 weeks no need for abx for now Code(s): N31.9 - NEUROMUSCULAR DYSFUNCTION OF BLADDER, UNSPECIFIED (5) Chronic respiratory failure Assessment/Plan: on vent support QHS and prn as needed trach collar Code(s): J96.10 - CHRONIC RESPIRATORY FAILURE, UNSP W HYPOXIA OR HYPERCAPNIA (6) HTN (hypertension) Assessment/Plan: [facility] BP is high 167/68 on hydralazine Code(s): I10 - ESSENTIAL (PRIMARY) HYPERTENSION (7) Pneumonia Assessment/Plan: IV ABX ID FOLLOW UP
[2017-02-13] MEDS: HEPARIN NA (PORCINE) 5,000 UNITS/ML 1ML VIAL SQ SCH ×2 (11:15→22:00)
[2017-02-13] MEDS: PANTOPRAZOLE 40 MG TABLET (FP) PO SCH (11:15)
[2017-02-13] MEDS: amLODIPine BESYLATE 10 MG TABLET (FP) PO SCH (11:15)
[2017-02-13] MEDS: D5-1/2NS+20 MEQ KCL - 20 MEQ/1,000 ML INFUS.BAG IV SCH (11:15)
[2017-02-13] MEDS: MIRTAZAPINE 15 MG TABLET (FP) PO SCH (11:15)
[2017-02-13 11:25] LABS: ARTERIAL BLD GAS O2 SATURATION 89.8 % (90-98.9); ARTERIAL BLOOD GAS BASE EXCESS 0.4 meq/l (-2-2); ARTERIAL BLOOD GAS HCO3 25.1 meq/L (22-26); ARTERIAL BLOOD GAS PO2 61.5 mmHg (80-100); ARTERIAL BLOOD GAS pH 7.38 (7.35-7.45)
[2017-02-13 11:27] LABS: ALLENS TEST POSITIVE
[2017-02-13 11:28] LABS: ART PUNCT SITE RIGHT RADIAL; LPM/O2% 50%; PT. ON O2? YES; TYPE OF O2 MECH VENT
[2017-02-13 11:29] LABS: VENT RATE 14
[2017-02-13] MEDS: SODIUM CHLORIDE 1 GM TABLET PO SCH (11:44)
[2017-02-13] MEDS ORDERED: PT OWN MED DRAWER 7, Y5N ONE ×2 (13:21→17:22)
--- NOTE | 2017-02-13 13:47 | PN ---
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 (short form) - Note 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: 52 year old female with multiple sclerosis, hypertension and quadriplegia admitted with lethargy, neurogenic bladder and mild degree of hyponatremia. Patient is awake and seen in the company of family. Vitals; Vital Signs (72 hours) 02/11/17 02/11/17 02/11/17 13:57 17:55 20:31 Temperature 92.5 F L Pulse Rate 50 L 59 L Respiratory 18 14 16 Rate Blood Pressure 138/94 O2 Sat by Pulse 97 98 Oximetry (%) 02/11/17 02/11/17 02/11/17 21:04 21:07 22:00 Temperature 94.1 F L Pulse Rate 51 L 61 Respiratory 14 14 14 Rate Blood Pressure 129/48 113/45 O2 Sat by Pulse Oximetry (%) 02/11/17 02/11/17 02/11/17 22:27 23:00 23:58 Temperature Pulse Rate 58 L Respiratory 14 14 14 Rate Blood Pressure O2 Sat by Pulse 96 96 Oximetry (%) 02/12/17 02/12/17 02/12/17 00:00 02:00 03:20 Temperature Pulse Rate 65 73 Respiratory 14 14 14 Rate Blood Pressure 114/51 96/55 O2 Sat by Pulse Oximetry (%) 02/12/17 02/12/17 02/12/17 04:00 06:00 06:25 Temperature 95.1 F L Pulse Rate 80 79 Respiratory 14 14 14 Rate Blood Pressure 95/42 102/42 O2 Sat by Pulse Oximetry (%) 02/12/17 02/12/17 02/12/17 06:49 08:00 08:55 Temperature Pulse Rate 76 Respiratory 14 Rate Blood Pressure 122/71 O2 Sat by Pulse 95 96 Oximetry (%) 02/12/17 02/12/17 02/12/17 09:00 09:20 10:00 Temperature Pulse Rate 76 Respiratory 14 14 14 Rate Blood Pressure 102/51 O2 Sat by Pulse 96 Oximetry (%) 02/12/17 02/12/17 02/12/17 10:28 10:30 12:00 Temperature 99.6 F Pulse Rate 76 92 H Respiratory 14 Rate Blood Pressure 167/68 O2 Sat by Pulse 97 Oximetry (%) 02/12/17 02/12/17 02/12/17 12:10 13:16 14:00 Temperature 99.2 F Pulse Rate 91 H Respiratory 14 14 Rate Blood Pressure 101/49 O2 Sat by Pulse 96 Oximetry (%) 02/12/17 02/12/17 02/12/17 14:17 16:00 16:15 Temperature Pulse Rate 92 H Respiratory 14 14 14 Rate Blood Pressure 98/46 O2 Sat by Pulse Oximetry (%) 02/12/17 02/12/17 02/12/17 17:50 18:05 18:56 Temperature 100.2 F H Pulse Rate 104 H Respiratory 14 14 Rate Blood Pressure 121/65 O2 Sat by Pulse 96 Oximetry (%) 02/12/17 02/12/17 02/12/17 20:00 20:55 21:00 Temperature 99.7 F H Pulse Rate 85 Respiratory 14 15 Rate Blood Pressure 110/56 O2 Sat by Pulse 96 96 Oximetry (%) 02/12/17 02/12/17 02/13/17 22:00 22:05 01:39 Temperature 100.3 F H Pulse Rate 102 H Respiratory 16 16 18 Rate Blood Pressure 111/54 O2 Sat by Pulse Oximetry (%) 02/13/17 02/13/17 02/13/17 02:00 06:00 06:50 Temperature 99.6 F 99.7 F H Pulse Rate 109 H 110 H Respiratory 18 18 16 Rate Blood Pressure 119/51 137/55 O2 Sat by Pulse 100 Oximetry (%) 02/13/17 10:00 Temperature Pulse Rate Respiratory 19 Rate Blood Pressure O2 Sat by Pulse Oximetry (%) Lungs; coarse breath sound in both lung martin, s/p trach Heart: S1 S2 Regular, Bd; Full, soft Ext; quadriplegia , no edema LABS CBC,CMP WBC 12.2 K/mm3 (4.0-10.0) H D 02/13/17 06:40 RBC 2.74 M/mm3 (3.60-5.2) L 02/13/17 06:40 Hgb 8.9 GM/dL (10.7-15.3) L 02/13/17 06:40 Hct 26.6 % (32.4-45.2) L 02/13/17 06:40 MCV 96.9 fl (80-96) H 02/13/17 06:40 MCH 32.3 pg (25.7-33.7) 02/13/17 06:40 MCHC 33.3 g/dl (32.0-36.0) 02/13/17 06:40 RDW 14.9 % (11.6-15.6) 02/13/17 06:40 Plt Count 113 K/MM3 (134-434) L 02/13/17 06:40 MPV 9.0 fl (7.5-11.1) 02/13/17 06:40 Neutrophils % 89.7 % (42.8-82.8) H 02/13/17 06:40 Lymphocytes % 5.8 % (8-40) L D 02/13/17 06:40 Monocytes % 4.3 % (3.8-10.2) 02/13/17 06:40 Eosinophils % 0.1 % (0-4.5) 02/13/17 06:40 Basophils % 0.1 % (0-2.0) 02/13/17 06:40 Sodium 139 mmol/L (136-145) 02/13/17 06:40 Potassium 3.8 mmol/L (3.5-5.1) 02/13/17 06:40 Chloride 101 mmol/L (98-107) 02/13/17 06:40 Carbon Dioxide 29 mmol/L (21-32) 02/13/17 06:40 Anion Gap 9 (8-16) 02/13/17 06:40 BUN 20 mg/dL (7-18) H 02/13/17 06:40 Creatinine 1.1 mg/dL (0.55-1.02) H 02/13/17 06:40 Creat Clearance w eGFR 51.96 (>60) 02/13/17 06:40 POC Glucometer 92 UNITS (80-120) 02/13/17 08:30 Random Glucose 60 mg/dL (74-106) L 02/13/17 06:40 Lactic Acid 0.5 mmol/L (0.4-2.0) 02/12/17 20:10 Calcium 9.1 mg/dL (8.5-10.1) 02/13/17 06:40 Phosphorus 2.7 mg/dL (2.5-4.9) D 02/12/17 05:55 Magnesium 1.8 mg/dL (1.8-2.4) D 02/12/17 05:55 Total Bilirubin 0.4 mg/dL (0.2-1.0) 02/13/17 06:40 AST 33 U/L (15-37) 02/13/17 06:40 ALT 33 U/L (12-78) D 02/13/17 06:40 Alkaline Phosphatase 190 U/L (45-117) H 02/13/17 06:40 B-Natriuretic Peptide 578.31 pg/ml (5-125) H 02/11/17 16:32 Total Protein 6.4 g/dl (6.4-8.2) 02/13/17 06:40 Albumin 2.5 g/dl (3.4-5.0) L 02/13/17 06:40 TSH 2.16 uIU/ml (0.358-3.74) D 02/11/17 16:32 A/P: 52 year old female with multiple sclerosis , quadriplegia and resolving hyponatremia. Will follow as needed.
--- NOTE | 2017-02-13 15:34 | PN ---
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 (short form) - Note 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: quite alert aide reports water from trach site when she drinks cxray is worse lowgrade fever (usuallly hypothermic) Vital Signs Period Temp Pulse Resp BP Sys/Morillo Pulse Ox Last 24 Hr 98.1 F-100.3 F 85-113 14-19 98-137/46-83 96-100 cor-rrr lungs decreased bs at bases abd soft,nt ext no edema CBC, BMP 02/13/17 06:40 02/13/17 06:40 Microbiology 02/11/17 17:39 Urine - Urine Clean Catch Urine Culture - Final Contaminated: Please Repeat 02/11/17 16:40 Blood - Peripheral Venous Blood Culture - Preliminary NO GROWTH OBTAINED AFTER 24 HOURS, INCUBATION TO CONTINUE FOR 4 DAYS. a/p ?aspiration-NPO will need further workup will restart antibiotics - zosyn for aspiration recent barium swallow 02/10/17- no aspiration noted admitted with lethargy and increased somnalence since the weekend chronic respiratory failure MS Problem List - Problems (1) Altered mental status Code(s): R41.82 - ALTERED MENTAL STATUS, UNSPECIFIED Qualifiers: Altered mental status type: unspecified Qualified Code(s): R41.82 - Altered mental status, unspecified (2) Hyponatremia Code(s): E87.1 - HYPO-OSMOLALITY AND HYPONATREMIA (3) Chronic hypercapnic respiratory failure Code(s): J96.12 - CHRONIC RESPIRATORY FAILURE WITH HYPERCAPNIA (4) Hx of multiple sclerosis Code(s): Z86.69 - PERSONAL HISTORY OF DIS OF THE NERVOUS SYS AND SENSE ORGANS
--- NOTE | 2017-02-13 15:39 | PN ---
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 (short form) - Note 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: PULMONARY Vented on volume assist control. Per family and aide and RN, every time she is fed something, i.e. applesauce or water, it comes out around the tracheostomy. Low grade temps overnight. Last Vital Signs Temp Pulse Resp BP Pulse Ox 98.1 F 113 H 18 116/83 100 02/13/17 14:29 02/13/17 14:29 02/13/17 14:29 02/13/17 14:29 02/13/17 02:00 Gen: vented, arousable Heart: tachycardic, regular Lung: decreased breath sounds at the bases Abd: soft, nontender Ext: no edema CBC, BMP 02/13/17 06:40 02/13/17 06:40 Active Medications Amlodipine Besylate (Norvasc -) 10 mg PO DAILY [facility] Last Admin: 02/13/17 11:15 Dose: Not Given Carbamazepine (Tegretol -) 200 mg PO TID [facility] Last Admin: 02/13/17 15:30 Dose: Not Given Heparin Sodium (Porcine) (Heparin -) 5,000 unit SQ BID [facility] Last Admin: 02/13/17 11:15 Dose: 5,000 unit Hydralazine HCl (Apresoline -) 25 mg PO TID [facility] Last Admin: 02/13/17 15:29 Dose: Not Given Sodium Chloride (Normal Saline -) 1,000 mls @ 42 mls/hr IV ASDIR [facility] Last Admin: 02/12/17 13:30 Dose: 42 mls/hr Potassium Chloride/Dextrose/Sod Cl (D5-1/2ns+20 Meq Kcl -) 20 meq in 1,000 mls @ 83 mls/hr IV ASDIR [facility] Last Admin: 02/13/17 11:15 Dose: 83 mls/hr Levothyroxine Sodium (Synthroid -) 100 mcg PO DAILY@0700 [facility] Last Admin: 02/13/17 06:57 Dose: 100 mcg Mirtazapine (Remeron -) 7.5 mg PO DAILY [facility] Last Admin: 02/13/17 11:15 Dose: Not Given Pantoprazole Sodium (Protonix -) 40 mg PO DAILY [facility] Last Admin: 02/13/17 11:15 Dose: Not Given Sodium Chloride (Sodium Chloride Tablet -) 1 gm PO DAILY [facility] Last Admin: 02/13/17 11:44 Dose: Not Given A/P r/o Esophago-Tracheal Fistula Pneumonia Hyponatremia Multiple Sclerosis Vent Dependent Chronic Respiratory Failure HTN - will consult Dr. Tompkins who placed her tracheostomy - NPO - IVF - antibiotics per ID - continue mechanical ventilation - DVT prophylaxis
[2017-02-13] MEDS ORDERED: PIPERACILLIN/TAZOB 3.375 GM/50 ML PRE-DOCKED IVPB SCH (15:45)
[2017-02-13] MEDS: SODIUM CHLORIDE 1,000 ML IV SCH (15:50)
[2017-02-13] MEDS ORDERED: PIPERACILLIN/TAZOB 3.375 GM 3.375 GM in DEXTROSE 5%-WATER - 100 ML IVPB SCH (17:00)
[2017-02-13] MEDS: PIPERACILLIN/TAZOB 3.375 GM 3.375 GM in DEXTROSE 5%-WATER - 50 ML IVPB SCH (18:47)
[2017-02-14] MEDS: D5-1/2NS+20 MEQ KCL - 20 MEQ/1,000 ML INFUS.BAG IV SCH ×2 (01:07→12:38)
[2017-02-14] MEDS: PIPERACILLIN/TAZOB 3.375 GM 3.375 GM in DEXTROSE 5%-WATER - 50 ML IVPB SCH ×3 (01:09→17:23)
[2017-02-14] MEDS: hydrALAZINE HCL 25 MG TABLET (FP) PO SCH ×3 (06:40→21:21)
[2017-02-14] MEDS: carBAMazepine 200 MG TABLET PO SCH ×3 (06:40→21:22)
[2017-02-14] MEDS: LEVOTHYROXINE NA 100 MCG TABLET (FP) PO SCH (06:40)
[2017-02-14 08:52] LABS: ALBUMIN 2.3 g/dl (3.4-5.0); ALK PHOS 181 U/L (45-117); ANION GAP 8 (8-16); BILIRUBIN,TOTAL 0.6 mg/dL (0.2-1.0); CALCIUM 9.5 mg/dL (8.5-10.1); CO2 28 mmol/L (21-32); CREATININE 0.9 mg/dL (0.55-1.02); GLUCOSE,RANDOM 108 mg/dL (74-106); SGOT/AST 27 U/L (15-37); SGPT/ALT 28 U/L (12-78); TOT PROT 6.6 g/dl (6.4-8.2)
[2017-02-14 08:56] LABS: BASO % 0.1 % (0-2.0); EOS % 0.1 % (0-4.5); MCH 32.5 pg (25.7-33.7); MCHC 33.3 g/dl (32.0-36.0); MEAN CELL VOLUME 97.4 fl (80-96); MEAN PLT VOLUME 8.3 fl (7.5-11.1); NEUT % 91.8 % (42.8-82.8); PLATELET COUNT 126 K/MM3 (134-434); RDW 14.8 % (11.6-15.6); WHITE BLOOD COUNT 13.5 K/mm3 (4.0-10.0)
[2017-02-14] MEDS: SODIUM CHLORIDE 1 GM TABLET PO SCH (09:02)
[2017-02-14] MEDS: amLODIPine BESYLATE 10 MG TABLET (FP) PO SCH (09:02)
[2017-02-14] MEDS: MIRTAZAPINE 15 MG TABLET (FP) PO SCH (09:02)
[2017-02-14] MEDS: PANTOPRAZOLE 40 MG TABLET (FP) PO SCH (09:02)
[2017-02-14] MEDS: HEPARIN NA (PORCINE) 5,000 UNITS/ML 1ML VIAL SQ SCH ×2 (09:37→22:02)
--- NOTE | 2017-02-14 13:11 | PN ---
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 (short form) - Note 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: PULMONARY No fevers recorded. Vented on volume assist control. Last Vital Signs Temp Pulse Resp BP Pulse Ox 99.2 F 112 H 16 156/89 98 02/14/17 10:00 02/14/17 10:00 02/14/17 10:00 02/14/17 10:00 02/14/17 09:00 Gen: vented, arousable Heart: tachycardic, regular Lung: decreased breath sounds at the bases Abd: soft, nontender Ext: no edema CBC, BMP 02/14/17 07:30 02/14/17 07:30 Active Medications Amlodipine Besylate (Norvasc -) 10 mg PO DAILY [facility] Last Admin: 02/14/17 09:02 Dose: Not Given Carbamazepine (Tegretol -) 200 mg PO TID [facility] Last Admin: 02/14/17 06:40 Dose: Not Given Heparin Sodium (Porcine) (Heparin -) 5,000 unit SQ BID [facility] Last Admin: 02/14/17 09:37 Dose: 5,000 unit Hydralazine HCl (Apresoline -) 25 mg PO TID [facility] Last Admin: 02/14/17 06:40 Dose: Not Given Potassium Chloride/Dextrose/Sod Cl (D5-1/2ns+20 Meq Kcl -) 20 meq in 1,000 mls @ 83 mls/hr IV ASDIR [facility] Last Admin: 02/14/17 12:38 Dose: Not Given Piperacillin Sod/Tazobactam (Sod 3.375 gm/ Dextrose) 50 mls @ 200 mls/hr IVPB Q8H-IV [facility] Last Admin: 02/14/17 09:37 Dose: 200 mls/hr Levothyroxine Sodium (Synthroid -) 100 mcg PO DAILY@0700 [facility] Last Admin: 02/14/17 06:40 Dose: Not Given Mirtazapine (Remeron -) 7.5 mg PO DAILY [facility] Last Admin: 02/14/17 09:02 Dose: Not Given Pantoprazole Sodium (Protonix -) 40 mg PO DAILY [facility] Last Admin: 02/14/17 09:02 Dose: Not Given Sodium Chloride (Sodium Chloride Tablet -) 1 gm PO DAILY [facility] Last Admin: 02/14/17 09:02 Dose: Not Given A/P r/o Esophago-Tracheal Fistula vs Larygeal Aspiration Pneumonia Hyponatremia Multiple Sclerosis Vent Dependent Chronic Respiratory Failure HTN - head and neck surgery eval, swallow f/u - NPO - IVF - antibiotics per ID - continue mechanical ventilation - DVT prophylaxis - repeat CXR in AM
--- NOTE | 2017-02-14 14:20 | PN ---
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, Physician - Current Medication List Current Medications: Active Medications Amlodipine Besylate (Norvasc -) 10 mg PO DAILY [facility] Last Admin: 02/14/17 09:02 Dose: Not Given Carbamazepine (Tegretol -) 200 mg PO TID [facility] Last Admin: 02/14/17 13:50 Dose: Not Given Heparin Sodium (Porcine) (Heparin -) 5,000 unit SQ BID [facility] Last Admin: 02/14/17 09:37 Dose: 5,000 unit Hydralazine HCl (Apresoline -) 25 mg PO TID [facility] Last Admin: 02/14/17 13:50 Dose: Not Given Potassium Chloride/Dextrose/Sod Cl (D5-1/2ns+20 Meq Kcl -) 20 meq in 1,000 mls @ 83 mls/hr IV ASDIR [facility] Last Admin: 02/14/17 12:38 Dose: Not Given Piperacillin Sod/Tazobactam (Sod 3.375 gm/ Dextrose) 50 mls @ 200 mls/hr IVPB Q8H-IV [facility] Last Admin: 02/14/17 09:37 Dose: 200 mls/hr Levothyroxine Sodium (Synthroid -) 100 mcg PO DAILY@0700 [facility] Last Admin: 02/14/17 06:40 Dose: Not Given Mirtazapine (Remeron -) 7.5 mg PO DAILY [facility] Last Admin: 02/14/17 09:02 Dose: Not Given Pantoprazole Sodium (Protonix -) 40 mg PO DAILY [facility] Last Admin: 02/14/17 09:02 Dose: Not Given Sodium Chloride (Sodium Chloride Tablet -) 1 gm PO DAILY [facility] Last Admin: 02/14/17 09:02 Dose: Not Given - Objective Vital Signs: Vital Signs Temperature 99.2 F 02/14/17 10:00 Pulse Rate 112 H 02/14/17 10:00 Respiratory Rate 16 02/14/17 10:00 Blood Pressure 156/89 02/14/17 10:00 O2 Sat by Pulse Oximetry (%) 98 02/14/17 09:00 Cardiovascular: Yes: S1, S2 Respiratory: Yes: Diminished, Mechanically Ventilated, Rhonchi Gastrointestinal: Yes: Normal Bowel Sounds, Soft Labs: CBC, BMP 02/14/17 07:30 02/14/17 07:30 INR, PTT INR 0.99 (0.82-1.09) 02/11/17 16:40 Assessment/Plan - Problems (1) Hyponatremia Assessment/Plan: recheck BMP renal on board salt tablets Code(s): E87.1 - HYPO-OSMOLALITY AND HYPONATREMIA (2) Hx of multiple sclerosis Assessment/Plan: with functional quadriplegia frequent turn and position dvt ppx Code(s): Z86.69 - PERSONAL HISTORY OF DIS OF THE NERVOUS SYS AND SENSE ORGANS (3) Hypothyroid Assessment/Plan: on synthroid Code(s): E03.9 - HYPOTHYROIDISM, UNSPECIFIED (4) Neurogenic bladder Assessment/Plan: chronic indwelling catheter changed every 2 weeks no need for abx for now Code(s): N31.9 - NEUROMUSCULAR DYSFUNCTION OF BLADDER, UNSPECIFIED (5) Chronic respiratory failure Assessment/Plan: on vent support QHS and prn as needed trach collar Code(s): J96.10 - CHRONIC RESPIRATORY FAILURE, UNSP W HYPOXIA OR HYPERCAPNIA (6) HTN (hypertension) Assessment[facility] BP is high 167/68 on hydralazine Code(s): I10 - ESSENTIAL (PRIMARY) HYPERTENSION (7) Pneumonia Assessment/Plan: IV ABX ID FOLLOW UP
--- NOTE | 2017-02-14 23:23 | PN ---
Physical Exam: SUBJECTIVE: This note is for 02/12/17. The patient is a 52F with a PMH of quadraplegia s/p trach who was brought to the hospital for lethargy and found to have a Na of 122. The patient has a history of a similar hepisode in the past and this was corrected by NS infusion. The patient was started on NS and had mental status improvements. She has no acute complaints and did not have any overnight events. She is hemodynamically stable. OBJECTIVE: Vital Signs Period Temp Pulse Resp BP Sys/Morillo Pulse Ox Last 24 Hr 98.2 F-100.9 F 91-112 15-18 104-156/58-89 98-98 GENERAL: The patient is awake, trached, in no acute distress. HEAD: Normal with no signs of trauma. EYES: PERRL, extraocular movements intact, sclera anicteric, conjunctiva clear. No ptosis. NECK: Trachea midline, full range of motion, supple. LUNGS: Breath sounds equal, clear to auscultation bilaterally, no wheezes, no crackles, no accessory muscle use. HEART: Regular rate and rhythm, S1, S2 without murmur, rub or gallop. ABDOMEN: Soft, nontender, nondistended, normoactive bowel sounds, no guarding, no rebound, no hepatosplenomegaly, no masses. EXTREMITIES: 2+ pulses, warm, well-perfused, no edema. NEUROLOGICAL: Cranial nerves II through XII grossly intact. Normal speech, gait not observed. PSYCH: Normal mood, normal affect. SKIN: Warm, dry, normal turgor, no rashes or lesions noted Laboratory Results - last 24 hr 02/14/17 02/14/17 02/14/17 05:48 07:30 07:30 WBC 13.5 H RBC 2.76 L Hgb 9.0 L Hct 26.9 L MCV 97.4 H MCH 32.5 MCHC 33.3 RDW 14.8 Plt Count 126 L MPV 8.3 Neutrophils % 91.8 H Lymphocytes % 4.5 L D Monocytes % 3.5 L Eosinophils % 0.1 Basophils % 0.1 Sodium 137 Potassium 3.8 Chloride 101 Carbon Dioxide 28 Anion Gap 8 BUN 18 Creatinine 0.9 Creat Clearance w eGFR > 60 POC Glucometer 109 Random Glucose 108 H D Calcium 9.5 Total Bilirubin 0.6 D AST 27 ALT 28 Alkaline Phosphatase 181 H Total Protein 6.6 Albumin 2.3 L 02/14/17 17:21 WBC RBC Hgb Hct MCV MCH MCHC RDW Plt Count MPV Neutrophils % Lymphocytes % Monocytes % Eosinophils % Basophils % Sodium Potassium Chloride Carbon Dioxide Anion Gap BUN Creatinine Creat Clearance w eGFR POC Glucometer 110 Random Glucose Calcium Total Bilirubin AST ALT Alkaline Phosphatase Total Protein Albumin Active Medications Generic Name Dose Route Start Last Admin Trade Name Freq PRN Reason Stop Dose Admin Amlodipine Besylate 10 mg 02/13/17 10:00 02/14/17 09:02 Norvasc - PO Not Given DAILY CATHER[facility] Carbamazepine 200 mg 02/12/17 14:00 02/14/17 21:22 Tegretol - PO Not Given TID CATHERINE Heparin Sodium (Porcine) 5,000 unit 02/12/17 22:00 02/14/17 22:02 Heparin - SQ 5,000 unit BID CATHERINE Administration Hydralazine HCl 25 mg 02/12/17 14:00 02/14/17 21:21 Apresoline - PO Not Given TID CATHERINE Potassium Chloride/Dextrose/Sod Cl 20 meq in 1,000 mls @ 83 mls/hr 02/13/17 10 :30 02/14/17 12:38 D5-1/2ns+20 Meq Kcl - IV Not Given ASDIR CATHERINE Piperacillin Sod/Tazobactam 50 mls @ 200 mls/hr 02/13/17 17:54 02/14/17 17:23 Sod 3.375 gm/ Dextrose IVPB 200 mls/hr Q8H-IV [facility] Administration Levothyroxine Sodium 100 mcg 02/13/17 07:00 02/14/17 06:40 Synthroid - PO Not Given DAILY@0700 C[facility]INE Mirtazapine 7.5 mg 02/13/17 10:00 02/14/17 09:02 Remeron - PO Not Given DAILY [facility] Pantoprazole Sodium 40 mg 02/13/17 10:00 02/14/17 09:02 Protonix - PO Not Given DAILY [facility]INE Sodium Chloride 1 gm 02/13/17 10:00 02/14/17 09:02 Sodium Chloride Tablet - PO Not Given DAILY [facility] ASSESSMENT/PLAN: Neuro: - At baseline per mother, who is at bedside CV: - Continue home meds, hydralazine and norvasc PPX: - Heparin sub-q FEN (Fluids, electrolytes, nutrition): - Na at 130 today from 122, improving - 1 gm NaCl qd - NS at 42mL/hour - Fluid restrictions Dispo: - Transfer to med/surg Visit type - Emergency Visit Emergency Visit: Yes ED Registration Date: 02/11/17 Care time: The patient presented to the Emergency Department on the above date and was hospitalized for further evaluation of their emergent condition. - New Patient This patient is new to me today: Yes Date on this admission: 02/14/17 - Critical Care Critical Care patient: Yes Total Critical Care Time (in minutes): 36 Critical Care Statement: The care of this patient involved high complexity decision making to prevent further life threatening deterioration of the patient 's condition and/or to evaluate & treat vital organ system(s) failure or risk of failure.
[2017-02-15] MEDS: PIPERACILLIN/TAZOB 3.375 GM 3.375 GM in DEXTROSE 5%-WATER - 50 ML IVPB SCH ×3 (02:17→17:20)
[2017-02-15] MEDS: D5-1/2NS+20 MEQ KCL - 20 MEQ/1,000 ML INFUS.BAG IV SCH ×3 (02:17→15:37)
[2017-02-15] MEDS: hydrALAZINE HCL 25 MG TABLET (FP) PO SCH ×3 (06:02→23:31)
[2017-02-15] MEDS: carBAMazepine 200 MG TABLET PO SCH ×3 (06:03→23:31)
[2017-02-15] MEDS: LEVOTHYROXINE NA 100 MCG TABLET (FP) PO SCH (06:03)
[2017-02-15 06:59] LABS: BASO % 0.1 % (0-2.0); EOS % 0.4 % (0-4.5); MCH 32.5 pg (25.7-33.7); MCHC 33.4 g/dl (32.0-36.0); MEAN CELL VOLUME 97.4 fl (80-96); MEAN PLT VOLUME 7.8 fl (7.5-11.1); NEUT % 86.9 % (42.8-82.8); PLATELET COUNT 126 K/MM3 (134-434); WHITE BLOOD COUNT 12.3 K/mm3 (4.0-10.0)
[2017-02-15 07:41] LABS: ALBUMIN 2.2 g/dl (3.4-5.0); ANION GAP 9 (8-16); CO2 26 mmol/L (21-32); GLUCOSE,RANDOM 101 mg/dL (74-106)
[2017-02-15 07:47] LABS: ALK PHOS 158 U/L (45-117); BILIRUBIN,TOTAL 0.5 mg/dL (0.2-1.0); CREATININE 0.8 mg/dL (0.55-1.02); SGOT/AST 22 U/L (15-37); SGPT/ALT 25 U/L (12-78); TOT PROT 6.1 g/dl (6.4-8.2)
[2017-02-15] MEDS: amLODIPine BESYLATE 10 MG TABLET (FP) PO SCH (09:26)
[2017-02-15] MEDS: PANTOPRAZOLE 40 MG TABLET (FP) PO SCH (09:27)
[2017-02-15] MEDS: MIRTAZAPINE 15 MG TABLET (FP) PO SCH (09:27)
[2017-02-15] MEDS: SODIUM CHLORIDE 1 GM TABLET PO SCH (09:27)
[2017-02-15] MEDS: HEPARIN NA (PORCINE) 5,000 UNITS/ML 1ML VIAL SQ SCH ×2 (10:06→23:29)
--- NOTE | 2017-02-15 10:42 | PN ---
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, Physician Chief Complaint: awake moves her eyes when her name is called out mother at bedside npo not swallowing her medications - Current Medication List Current Medications: Active Medications Amlodipine Besylate (Norvasc -) 10 mg PO DAILY [facility] Last Admin: 02/15/17 09:26 Dose: Not Given Carbamazepine (Tegretol -) 200 mg PO TID [facility] Last Admin: 02/15/17 06:03 Dose: Not Given Heparin Sodium (Porcine) (Heparin -) 5,000 unit SQ BID [facility] Last Admin: 02/15/17 10:06 Dose: 5,000 unit Hydralazine HCl (Apresoline -) 25 mg PO TID [facility] Last Admin: 02/15/17 06:02 Dose: Not Given Potassium Chloride/Dextrose/Sod Cl (D5-1/2ns+20 Meq Kcl -) 20 meq in 1,000 mls @ 83 mls/hr IV ASDIR [facility] Last Admin: 02/15/17 10:07 Dose: Not Given Piperacillin Sod/Tazobactam (Sod 3.375 gm/ Dextrose) 50 mls @ 200 mls/hr IVPB Q8H-IV [facility] Last Admin: 02/15/17 10:06 Dose: 200 mls/hr Levothyroxine Sodium (Synthroid -) 100 mcg PO DAILY@0700 [facility] Last Admin: 02/15/17 06:03 Dose: Not Given Mirtazapine (Remeron -) 7.5 mg PO DAILY [facility] Last Admin: 02/15/17 09:27 Dose: Not Given Pantoprazole Sodium (Protonix -) 40 mg PO DAILY [facility] Last Admin: 02/15/17 09:27 Dose: Not Given Sodium Chloride (Sodium Chloride Tablet -) 1 gm PO DAILY [facility] Last Admin: 02/15/17 09:27 Dose: Not Given - Objective Vital Signs: Vital Signs Temperature 97.3 F L 02/15/17 09:00 Pulse Rate 80 02/15/17 09:00 Respiratory Rate 14 02/15/17 09:00 Blood Pressure 124/76 02/15/17 09:00 O2 Sat by Pulse Oximetry (%) 98 02/14/17 21:44 Constitutional: Yes: Calm HENT: Yes: Other Neck: Yes: Other (trach) Cardiovascular: Yes: Regular Rate and Rhythm, S1, S2 Respiratory: Yes: Mechanically Ventilated Gastrointestinal: Yes: Normal Bowel Sounds, Soft Genitourinary: Yes: Raza Present Edema: No Neurological: Yes: Pre-Existing Deficit (quadriplegia) Labs: CBC, BMP 02/15/17 06:45 02/15/17 06:45 INR, PTT INR 0.99 (0.82-1.09) 02/11/17 16:40 Problem List - Problems (1) Lethargy Assessment/Plan: NPO r/o aspiration junior faulkner consult possible MBS iv abx for for possible PNA Code(s): R53.83 - OTHER FATIGUE (2) Hyponatremia Assessment/Plan: salt tablet currently ivf bc she is NPO na is now improved to 139 Code(s): E87.1 - HYPO-OSMOLALITY AND HYPONATREMIA (3) Hx of multiple sclerosis Assessment/Plan: with functional quadriplegia frequent turn and position dvt ppx Code(s): Z86.69 - PERSONAL HISTORY OF DIS OF THE NERVOUS SYS AND SENSE ORGANS (4) Hypothyroid Assessment/Plan: on synthroid Code(s): E03.9 - HYPOTHYROIDISM, UNSPECIFIED (5) Neurogenic bladder Assessment/Plan: chronic indwelling catheter changed every 2 weeks no need for abx for now Code(s): N31.9 - NEUROMUSCULAR DYSFUNCTION OF BLADDER, UNSPECIFIED (6) Chronic respiratory failure Assessment/Plan: on vent support dr avilez consulted to rogelio aguirre Code(s): J96.10 - CHRONIC RESPIRATORY FAILURE, UNSP W HYPOXIA OR HYPERCAPNIA (7) HTN (hypertension) Assessment/Plan: [facility] BP is high 167/68 on hydralazine Code(s): I10 - ESSENTIAL (PRIMARY) HYPERTENSION
--- NOTE | 2017-02-15 12:02 | PN ---
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 (short form) - Note 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: PULMONARY Febrile to 100.9 yesterday. Vented on volume assist control, not tolerating CPAP /PS trials. Last Vital Signs Temp Pulse Resp BP Pulse Ox 97.3 F L 80 14 124/76 98 02/15/17 09:00 02/15/17 09:00 02/15/17 09:00 02/15/17 09:00 02/14/17 21:44 Gen: vented, arousable Heart: tachycardic, regular Lung: decreased breath sounds at the bases, scattered rhonchi Abd: soft, nontender Ext: no edema CBC, BMP 02/15/17 06:45 02/15/17 06:45 Active Medications Amlodipine Besylate (Norvasc -) 10 mg PO DAILY [facility] Last Admin: 02/15/17 09:26 Dose: Not Given Carbamazepine (Tegretol -) 200 mg PO TID [facility] Last Admin: 02/15/17 06:03 Dose: Not Given Heparin Sodium (Porcine) (Heparin -) 5,000 unit SQ BID [facility] Last Admin: 02/15/17 10:06 Dose: 5,000 unit Hydralazine HCl (Apresoline -) 25 mg PO TID [facility] Last Admin: 02/15/17 06:02 Dose: Not Given Potassium Chloride/Dextrose/Sod Cl (D5-1/2ns+20 Meq Kcl -) 20 meq in 1,000 mls @ 83 mls/hr IV ASDIR [facility] Last Admin: 02/15/17 10:07 Dose: Not Given Piperacillin Sod/Tazobactam (Sod 3.375 gm/ Dextrose) 50 mls @ 200 mls/hr IVPB Q8H-IV [facility] Last Admin: 02/15/17 10:06 Dose: 200 mls/hr Levothyroxine Sodium (Synthroid -) 100 mcg PO DAILY@0700 [facility] Last Admin: 02/15/17 06:03 Dose: Not Given Mirtazapine (Remeron -) 7.5 mg PO DAILY [facility] Last Admin: 02/15/17 09:27 Dose: Not Given Pantoprazole Sodium (Protonix -) 40 mg PO DAILY [facility] Last Admin: 02/15/17 09:27 Dose: Not Given Sodium Chloride (Sodium Chloride Tablet -) 1 gm PO DAILY [facility] Last Admin: 02/15/17 09:27 Dose: Not Given A/P r/o Esophago-Tracheal Fistula vs Larygeal Aspiration Pneumonia Hyponatremia improved Multiple Sclerosis Vent Dependent Chronic Respiratory Failure HTN - head and neck surgery eval - swallow f/u - keep NPO - IVF - antibiotics per ID - continue mechanical ventilation - DVT prophylaxis - monitor CXR
--- NOTE | 2017-02-15 12:56 | PN ---
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 (short form) - Note 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: responsive now NPO Vital Signs Period Temp Pulse Resp BP Sys/Morillo Pulse Ox Last 24 Hr 97.3 F-100.9 F 80-104 14-19 124-150/71-87 98-98 cor-rrr lungs decreased bs at bases abd soft,NT ext no edema +perera CBC, BMP 02/15/17 06:45 02/15/17 06:45 Microbiology 02/14/17 11:00 Urine Culture - Final Urine - Urine Perera NO GROWTH OBTAINED 02/11/17 16:40 Blood Culture - Preliminary Blood - Peripheral Venous NO GROWTH OBTAINED AFTER 72 HOURS, INCUBATION TO CONTINUE FOR 2 DAYS. 02/11/17 15:30 Blood Culture - Preliminary Blood - Peripheral Venous NO GROWTH OBTAINED AFTER 48 HOURS, INCUBATION TO CONTINUE FOR 3 DAYS. a/p ?aspiration-NPO will need further workup continue zosyn for aspiration recent barium swallow 02/10/17- no aspiration noted admitted with lethargy and increased somnalence since the weekend chronic respiratory failure MS d/w family at bedside Problem List - Problems (1) Altered mental status Code(s): R41.82 - ALTERED MENTAL STATUS, UNSPECIFIED Qualifiers: Altered mental status type: unspecified Qualified Code(s): R41.82 - Altered mental status, unspecified (2) Hyponatremia Code(s): E87.1 - HYPO-OSMOLALITY AND HYPONATREMIA (3) Chronic hypercapnic respiratory failure Code(s): J96.12 - CHRONIC RESPIRATORY FAILURE WITH HYPERCAPNIA (4) Hx of multiple sclerosis Code(s): Z86.69 - PERSONAL HISTORY OF DIS OF THE NERVOUS SYS AND SENSE ORGANS
[2017-02-15] MEDS ORDERED: PT OWN MED DRAWER 7, Y5N ONE (16:44)
--- NOTE | 2017-02-15 17:03 | CONSULT ---
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 Pt was recently referred by Dr. Rubens Landon, as pt's family reported noting particles of food when she was suctioned. A repeat mbs was performed on 02/10/17-There was no aspiration noted, although oral-pharyngeal function was weaker and more labored. It was rec that a soft diet and thin liquid be continued and that home care swallowing tx be initiated to improve swallowing strength and function. Pt was admitted the following day with lethargy and increased somnolence. na 122 in ED, has been drinking a lot of water Vented since admission.Pt on night time ventilation at home Noted on 02/13-Per family and aide and RN, every time she is fed something, i.e. applesauce or water, it comes out around the tracheostomy. Pt npo as of 02/13. Pt's mother reports she was "not swallowing and food was coming out of tracheostomy. r/o Esophago-Tracheal Fistula vs Laryngeal Aspiration Pt seen bedside, on ventilator, with mother present. Pt with rare speech initiation, limited ability to follow oral diectives with possible Oral Apraxia. She is drooling out of left side of her moth, ubnable to close her mouth and generate a swallow. Several command needed to eliit tongue protrusion which is midline. When asked to smile, throw a kiss, pt continued to repeated protrude her tongue. She did mouth my name and I believe [facility], but difficult to assess reliably. History Source: Family Member, Caregiver Limitations to Obtaining History: Clinical Condition - Past Medical History EXPLORATION GEOLOGIST: Yes: Multiple Sclerosis (quadraplegia), Other (legally blind, trigeminal neuralgia -> baclofen pump) Cardiovascular: Yes: HTN, Hyperlipdemia Pulmonary: Yes: Pneumonia, Previously Intubated, Other Gastrointestinal: Yes: Constipation (chronic) Renal/: Yes: Neurogenic Bladder ( neurogenic bladder, chronic perera catheter) ...LMP: 06/07/12 Heme/Onc: Yes: Anemia Infectious Disease: Yes: Other (pneumonia, uti treated by urologist) Musculoskeletal: Yes: Other Dermatology: Yes: Other (chronic decubitus followed by wound care) - Smoking History Smoking history: Never smoked Have you smoked in the past 12 months: No Aproximately how many cigarettes per day: 0 - Alcohol/Substance Use Hx Alcohol Use: No History of Substance Use: reports: None - Social History ADL: Support Services History of Recent Travel: No History - Admission Reason For Visit: HYPERCAPNIA; HYPONATREMIA - Diagnostics X-ray: Report Reviewed - General Mental Status: Awake and Alert Attention: Distractible Ability to Follow Directions: Poor Head/Neck Control: Poor - Hearing Hearing: Normal Hearing Aide: No Speech Evaluation - Communication Primary Language: VIET[place]ESE - Speech Characteristics Articulation: Yes: Precise - Swallow Evaluation/Bedside Assessment Current Nutritional Intake: NPO Oral Secretions: Yes: Drooling (left side) Tracheostomy Present: Yes Patient on Ventilator: Yes Dentition: Yes: Adequate Lingual Movement: Symmetric Lingual Speed of Movement: Reduced Lingual Movement Strgth Against Opposition: Reduced Recommendations - Speech Evaluation, Impression/Plan Impression: Significant change in neurologic status, possibly sec encephalopathy vs MS vs medication. Pt is drooling, suspect she is aspirating on secretions. Very slow to respond. Oral Apraxia. Likely aspirating due to rare swallow generation. This is a significant change in function as compared to recent MBS - Dysphagia Impressions/Plan Swallowing Skills: Impaired Dysphagia Impressions: Severe Impairment, Suspect Aspiration *Silent aspiration: cannot be R/O at bedside Dysphagia Treatment Plan: Chin Tuck/Down (at all times to improve pt's ability to swallow saliva/manage secretions.), Other (Elevate HOB) Recommendations: Neuro Consult (Dr. Conroy is pt's neurologist.), ENT Consult ( pending/Discussed case), Modified Barium Swallow (Defer for now. Pt is clinically aspirating at this time.), Other (mouth care, suction oral cavity/ trach prn.) - Recommendations Diet Consistency: NPO Liquids: NPO
[2017-02-15] MEDS ORDERED: ACETAMINOPHEN 325 MG TABLET (FP) PO ONE (21:37)
[2017-02-15] MEDS ORDERED: ACETAMINOPHEN 650 MG SUPP.RECT PR ONE (21:48)
--- NOTE | 2017-02-15 21:50 | HOSP ---
Subjective - Review of Symptoms Subjective: Called for fever of 101 Physical: GEN:NAD CARD: RRR S1, S2 RESP: BS Decreased at bases ABD" BSx4, NTD EXT: - C/C/E - Npo - Cx's already taken, would repeat Ua, Ucx. Recent blood cx, la - CXR - On Zosyn for Asp, would add Esthelao, ID on consult Physical Examination Vital Signs: Vital Signs Temperature 99.6 F 02/15/17 19:00 Pulse Rate 99 H 02/15/17 19:00 Respiratory Rate 14 02/15/17 19:00 Blood Pressure 146/85 02/15/17 19:00 O2 Sat by Pulse Oximetry (%) 98 02/15/17 10:35 Labs: CBC, BMP 02/15/17 06:45 02/15/17 06:45
[2017-02-15] MEDS ORDERED: VANCOMYCIN 1,000 MG in DEXTROSE 5%-WATER - 250 ML IVPB ONE (22:00)
--- NOTE | 2017-02-15 22:29 | PN ---
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 (short form) - Note 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: patient seen and examined, well-known to me. Family has bee reporting that food she eats is seen around the tracheostomy site. Now admitted with pneumonia. Had modified barium swallow by Ana M Magana last week which looked OK. Now neurologically worse with inability to speak and minimal ability to move her head or communicate. Tracheostomy tube in place. Agree with Ana M Magana that she should be NPO for now. Neurology consultation should be called to assess for progression of neurological disorder. Should have PEG placed for feeds. Continue current care for pneumonia and hospitalization.
[2017-02-16] MEDS: PIPERACILLIN/TAZOB 3.375 GM 3.375 GM in DEXTROSE 5%-WATER - 50 ML IVPB SCH ×3 (02:17→17:50)
[2017-02-16 03:11] LABS: URINE APPEARANCE CLOUDY; URINE BILIRUBIN NEGATIVE (NEGATIVE); URINE BLOOD 1+ (NEGATIVE); URINE COLOR YELLOW; URINE GLUCOSE (UA) 3+ (NEGATIVE); URINE KETONE NEGATIVE (NEGATIVE); URINE LEUK ESTERASE NEGATIVE (NEGATIVE); URINE NITRITE NEGATIVE (NEGATIVE); URINE UROBILINOGEN NEGATIVE mg/dL (0.2-1.0)
[2017-02-16 03:18] LABS: URINE PROTEIN 1+ (NEGATIVE)
[2017-02-16 03:20] LABS: URINE BACTERIA RARE /hpf (NONE SEEN); URINE MUCUS RARE; URINE RBC 8 /hpf (0-3); URINE WBC 4 /hpf (3-5)
[2017-02-16] MEDS: D5-1/2NS+20 MEQ KCL - 20 MEQ/1,000 ML INFUS.BAG IV SCH ×2 (06:00→10:53)
[2017-02-16] MEDS: hydrALAZINE HCL 25 MG TABLET (FP) PO SCH ×2 (06:35→13:30)
[2017-02-16] MEDS: LEVOTHYROXINE NA 100 MCG TABLET (FP) PO SCH (06:36)
[2017-02-16] MEDS: carBAMazepine 200 MG TABLET PO SCH ×2 (06:36→13:30)
[2017-02-16 07:33] LABS: BASO % 0.2 % (0-2.0); EOS % 0.9 % (0-4.5); MCH 32.8 pg (25.7-33.7); MCHC 33.5 g/dl (32.0-36.0); MEAN CELL VOLUME 97.8 fl (80-96); MEAN PLT VOLUME 8.1 fl (7.5-11.1); NEUT % 82.8 % (42.8-82.8); PLATELET COUNT 166 K/MM3 (134-434); RDW 14.8 % (11.6-15.6); WHITE BLOOD COUNT 11.2 K/mm3 (4.0-10.0)
[2017-02-16 08:07] LABS: ALBUMIN 2.1 g/dl (3.4-5.0); ALK PHOS 168 U/L (45-117); ANION GAP 7 (8-16); BILIRUBIN,TOTAL 0.8 mg/dL (0.2-1.0); CALCIUM 8.9 mg/dL (8.5-10.1); CO2 26 mmol/L (21-32); CREATININE 0.7 mg/dL (0.55-1.02); GLUCOSE,RANDOM 96 mg/dL (74-106); SGOT/AST 42 U/L (15-37); SGPT/ALT 36 U/L (12-78); TOT PROT 6.1 g/dl (6.4-8.2)
[2017-02-16 08:56] LABS: URINE LEUK ESTERASE NEGATIVE (NEGATIVE)
[2017-02-16] MEDS: MIRTAZAPINE 15 MG TABLET (FP) PO SCH (09:35)
[2017-02-16] MEDS: amLODIPine BESYLATE 10 MG TABLET (FP) PO SCH (09:35)
[2017-02-16] MEDS: PANTOPRAZOLE 40 MG TABLET (FP) PO SCH (09:35)
[2017-02-16] MEDS: SODIUM CHLORIDE 1 GM TABLET PO SCH (09:36)
[2017-02-16] MEDS ORDERED: PT OWN MED DRAWER 7, Y5N ONE ×4 (09:52→21:41)
[2017-02-16] MEDS ORDERED: ACETAMINOPHEN 325 MG TABLET (FP) PO PRN (10:07)
[2017-02-16] MEDS: HEPARIN NA (PORCINE) 5,000 UNITS/ML 1ML VIAL SQ SCH ×2 (10:08→23:21)
--- NOTE | 2017-02-16 10:10 | PN ---
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, Physician Chief Complaint: leukocytosis, hyponatremia, weakness History of Present Illness: -trach collar- chronic due to MS goes on the mechanical vent at bedtime -febrile -repeat CXR negative -repeat BC and UC pending seen byID -on IV abx -day 5 without any nutrition- considering parental nutrition -pt and family doesn't want feeding tube (PEG) - Current Medication List Current Medications: Active Medications Acetaminophen (Tylenol -) 650 mg PO Q6H PRN PRN Reason: FEVER OR PAIN Amlodipine Besylate (Norvasc -) 10 mg PO DAILY [facility] Last Admin: 02/16/17 09:35 Dose: Not Given Carbamazepine (Tegretol -) 200 mg PO TID [facility] Last Admin: 02/16/17 06:36 Dose: Not Given Heparin Sodium (Porcine) (Heparin -) 5,000 unit SQ BID [facility] Last Admin: 02/16/17 10:08 Dose: 5,000 unit Hydralazine HCl (Apresoline -) 25 mg PO TID [facility] Last Admin: 02/16/17 06:35 Dose: Not Given Potassium Chloride/Dextrose/Sod Cl (D5-1/2ns+20 Meq Kcl -) 20 meq in 1,000 mls @ 83 mls/hr IV ASDIR [facility] Last Admin: 02/16/17 06:00 Dose: 83 mls/hr Piperacillin Sod/Tazobactam (Sod 3.375 gm/ Dextrose) 50 mls @ 200 mls/hr IVPB Q8H-IV [facility] Last Admin: 02/16/17 02:17 Dose: 200 mls/hr Levothyroxine Sodium (Synthroid -) 100 mcg PO DAILY@0700 [facility] Last Admin: 02/16/17 06:36 Dose: Not Given Mirtazapine (Remeron -) 7.5 mg PO DAILY [facility] Last Admin: 02/16/17 09:35 Dose: Not Given Pantoprazole Sodium (Protonix -) 40 mg PO DAILY [facility] Last Admin: 02/16/17 09:35 Dose: Not Given Sodium Chloride (Sodium Chloride Tablet -) 1 gm PO DAILY [facility] Last Admin: 02/16/17 09:36 Dose: Not Given - Objective Vital Signs: Vital Signs Temperature 100.5 F H 02/16/17 06:00 Pulse Rate 78 02/16/17 09:31 Respiratory Rate 15 02/16/17 09:31 Blood Pressure 147/81 02/16/17 06:00 O2 Sat by Pulse Oximetry (%) 98 02/16/17 09:31 Constitutional: Yes: Well Nourished, No Distress, Calm Cardiovascular: Yes: Regular Rate and Rhythm Respiratory: Yes: Mechanically Ventilated Gastrointestinal: Yes: Normal Bowel Sounds Musculoskeletal: Yes: Muscle Weakness Edema: Yes Edema: LLE: 1+, RLE: 1+ Peripheral Pulses WNL: Yes Neurological: Yes: Alert, Lethargy, Weakness Psychiatric: Yes: Alert Labs: CBC, BMP 02/16/17 07:10 02/16/17 07:10 INR, PTT INR 0.99 (0.82-1.09) 02/11/17 16:40 Problem List - Problems (1) Hyponatremia Assessment/Plan: -resolved -IVF -nephrology on board Code(s): E87.1 - HYPO-OSMOLALITY AND HYPONATREMIA (2) Lethargy Assessment/Plan: -still lethargic -weaker from her baseline -likely secondary to acute infectious process -seen by Neurology Dr Conroy -steroids on Neurology discretion Code(s): R53.83 - OTHER FATIGUE (3) Acute on chronic respiratory failure with hypoxia and hypercapnia Assessment/Plan: -on mechanical vent around the clock for now -seen by pulmonary Code(s): J96.21 - ACUTE AND CHRONIC RESPIRATORY FAILURE WITH HYPOXIA; J96.22 - ACUTE AND CHRONIC RESPIRATORY FAILURE WITH HYPERCAPNIA (4) Anemia Assessment/Plan: -acute on chronic -2 units PRBC -stool ob -check labs- iron profile, b12, folate tsh -hematology consult -repeat labs in AM Code(s): D64.9 - ANEMIA, UNSPECIFIED Qualifiers: Other causes of anemia: other cause, not classified (5) Multiple sclerosis Assessment/Plan: -Chronic -seen by Neurology Dr Conroy -steroids on Neurology discretion -her blood sugars are okay at the moment, if needed, would cover with insulin while on steroids Code(s): G35 - MULTIPLE SCLEROSIS (6) Oral thrush Assessment/Plan: -ID on board -IV antigungal? Code(s): B37.0 - CANDIDAL STOMATITIS (7) Leukocytosis Assessment/Plan: -on IV abx -improved -ID on board -still febrile -acetaminophen supp Q4H if needed -cooling blanket for fever over 101.0F Code(s): D72.829 - ELEVATED WHITE BLOOD CELL COUNT, UNSPECIFIED Assessment/Plan see problem list
[2017-02-16] MEDS ORDERED: ACETAMINOPHEN 650 MG SUPP.RECT PR PRN (10:46)
[2017-02-16 11:43] LABS: FREE T4 1.21 ng/dl (0.76-1.46); THYROID STIMULATING HORMONE 3.64 uIU/ml (0.358-3.74)
--- NOTE | 2017-02-16 12:43 | CONSULT ---
Consult Consult Specialty:: Hematology Referred by:: Reason for Consultation:: Anemia - History of Present Illness History of Present Illness: 52 y/o F with PMH of of MS (not currently on steroid therapy, currently trached because of secretion clearance issues and apparent respiratory muscle weakness and with indwelling perera), HTN, sleep disorders, and hypothyroidism presenting with increasing lethargy and somnolence since Wednesday. She has history of UTIs in the past and never becomes symptomatic. Last UTI was 2 months prior. Of note , she also has three decubitus wounds in her back that have been recently evaluated by the wound care staff and do not seem to be infected according to the care staff and family at the bedside. Denies current fevers, chills, nausea , vomiting, diarrhea, constipation, chest pain or other current symptoms. Hematology called for anemia. 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 chronic decubitus followed by wound care. neurogenic bladder, chronic perera catheter - Alcohol/Substance Use Hx Alcohol Use: No History of Substance Use: reports: None - Smoking History Smoking history: Never smoked Have you smoked in the past 12 months: No Aproximately how many cigarettes per day: 0 - Social History Usual Living Arrangement: With Parent ADL: Support Services History of Recent Travel: No Home Medications - Allergies Allergies/Adverse Reactions: Allergies Allergy/AdvReac Type Severity Reaction Status Date / Time chloral hydrate Allergy Intermediate Rash Verified 12/11/16 12:36 [Chloral Hydrate] azathioprine [From Imuran] Allergy Rash Verified 12/11/16 12:36 azathioprine sodium Allergy Rash Verified 12/11/16 12:36 [From Imuran] adhesive tape AdvReac Severe sensitivity Verified 12/11/16 12:36 to glue adhesive AdvReac Unknown Verified 12/11/16 12:36 - Home Medications Home Medications: Ambulatory Orders Clonazepam [Klonopin] 0.5 mg PO DAILY 05/08/15 Amlodipine Besylate [Norvasc -] 10 mg PO HS 02/06/16 Baclofen 0 mg IVSS ASDIR 02/06/16 Mirtazapine 7.5 mg PO DAILY 02/06/16 Pantoprazole Sodium [Protonix] 40 mg PO DAILY 02/06/16 Ferrous Sulfate [Feosol] 325 mg PO BIDWM #30 bottle MDD 2 05/21/16 Levothyroxine [Synthroid -] 100 mcg PO DAILY@0700 #30 tablet 06/24/16 Sodium Chloride Tablet - 1 gm PO DAILY #30 tablet 06/24/16 Hydralazine HCl [Apresoline -] 50 mg PO TID 02/11/17 Carbamazepine [Tegretol -] 100 mg PO TID 02/12/17 Family Disease History - Family Disease History Family Disease History: Other: Mother Physical Exam Vital Signs: Vital Signs Temperature 99.8 F H 02/16/17 10:00 Pulse Rate 73 02/16/17 10:00 Respiratory Rate 14 02/16/17 10:00 Blood Pressure 131/86 02/16/17 10:00 O2 Sat by Pulse Oximetry (%) 98 02/16/17 09:31 Constitutional: Yes: Other (mildly lethargic , warm to touch) Eyes: No: Sclera Icterus HENT: Yes: Atraumatic Neck: Yes: Other (trach+ +trach secretions) Respiratory: Yes: Mechanically Ventilated Gastrointestinal: Yes: Normal Bowel Sounds, Soft Edema: No Labs: CBC, BMP 02/16/17 07:10 02/16/17 07:10 Imaging - Results X-ray: Report Reviewed Problem List - Problems (1) Anemia Code(s): D64.9 - ANEMIA, UNSPECIFIED Qualifiers: Other causes of anemia: other cause, not classified (2) Lethargy Code(s): R53.83 - OTHER FATIGUE (3) Chronic respiratory failure Code(s): J96.10 - CHRONIC RESPIRATORY FAILURE, UNSP W HYPOXIA OR HYPERCAPNIA (4) Leukocytosis Code(s): D72.829 - ELEVATED WHITE BLOOD CELL COUNT, UNSPECIFIED (5) Multiple sclerosis Code(s): G35 - MULTIPLE SCLEROSIS Assessment/Plan Normocytic anemia Long standing hx (lowest of 5.7) for screening anemia labs including MARGOTH B12/folate/TFTs normal await Stool occult Await iron stores results most likely ACD/ACI. pending above, might send a peripheral blood flow In the acute inflammatory setting ( sepsis) , transfusion is reasonable. did not have a GI w/u thus far as per family Thrombocytopenia: Now resolved , likely acute reaction ELevated PTT: repeat before further w/u DVT ppx. Sepsis: Treatment per ID
--- NOTE | 2017-02-16 13:57 | PN ---
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 (short form) - Note 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: responsive now NPO fever overnight now alert and afebrile Vital Signs Period Temp Pulse Resp BP Sys/Morillo Pulse Ox Last 24 Hr 98.7 F-101.2 F 73-100 14-20 131-147/76-86 98-100 trach to vent alert cor-rrr lungs decreased bs at bases abd soft,nt ext no edema CBC, BMP 02/16/17 07:10 02/16/17 07:10 Microbiology 02/11/17 16:40 Blood - Peripheral Venous Blood Culture - Preliminary NO GROWTH OBTAINED AFTER 96 HOURS, INCUBATION TO CONTINUE FOR 1 DAYS. 02/11/17 15:30 Blood - Peripheral Venous Blood Culture - Preliminary NO GROWTH OBTAINED AFTER 72 HOURS, INCUBATION TO CONTINUE FOR 2 DAYS. 02/14/17 11:00 Urine - Urine Raza Urine Culture - Final NO GROWTH OBTAINED 02/11/17 17:39 Urine - Urine Clean Catch Urine Culture - Final Contaminated: Please Repeat cxray unchanged a/p ?aspiration-NPO will need further workup continue zosyn for aspiration , add vancomycin f/u cultures, sputum culture too chronic respiratory failure MS d/w family at bedside Problem List - Problems (1) Altered mental status Code(s): R41.82 - ALTERED MENTAL STATUS, UNSPECIFIED Qualifiers: Altered mental status type: unspecified Qualified Code(s): R41.82 - Altered mental status, unspecified (2) Hyponatremia Code(s): E87.1 - HYPO-OSMOLALITY AND HYPONATREMIA (3) Chronic hypercapnic respiratory failure Code(s): J96.12 - CHRONIC RESPIRATORY FAILURE WITH HYPERCAPNIA (4) Hx of multiple sclerosis Code(s): Z86.69 - PERSONAL HISTORY OF DIS OF THE NERVOUS SYS AND SENSE ORGANS
[2017-02-16] MEDS ORDERED: VANCOMYCIN 1 GRAM (PRE-DOCKED) 1,000 MG/250 ML BAG IVPB SCH (14:00)
[2017-02-16 14:48] LABS: FERRITIN 1618.175 ng/ml (6.9-282.5)
--- NOTE | 2017-02-16 15:26 | PN ---
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 (short form) - Note 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: PULMONARY Febrile overnight. Vented on volume assist control, not tolerating CPAP/PS trials. Seen by H&N surgeon and speech pathology, pt NPO. Last Vital Signs Temp Pulse Resp BP Pulse Ox 100.2 F H 75 14 143/82 98 02/16/17 14:55 02/16/17 14:55 02/16/17 14:55 02/16/17 14:55 02/16/17 09:31 Gen: vented, arousable Heart: tachycardic, regular Lung: decreased breath sounds at the bases, scattered rhonchi Abd: soft, nontender Ext: no edema CBC, BMP 02/16/17 07:10 02/16/17 07:10 Active Medications Acetaminophen (Tylenol Suppository -) 650 mg [place] Q4H PRN PRN Reason: FEVER OR PAIN Last Admin: 02/16/17 12:13 Dose: 650 mg Amlodipine Besylate (Norvasc -) 10 mg PO DAILY [facility] Last Admin: 02/16/17 09:35 Dose: Not Given Carbamazepine (Tegretol -) 200 mg PO TID [facility] Last Admin: 02/16/17 13:30 Dose: Not Given Heparin Sodium (Porcine) (Heparin -) 5,000 unit SQ BID [facility] Last Admin: 02/16/17 10:08 Dose: 5,000 unit Hydralazine HCl (Apresoline -) 25 mg PO TID [facility] Last Admin: 02/16/17 13:30 Dose: Not Given Potassium Chloride/Dextrose/Sod Cl (D5-1/2ns+20 Meq Kcl -) 20 meq in 1,000 mls @ 83 mls/hr IV ASDIR [facility] Last Admin: 02/16/17 10:53 Dose: Not Given Piperacillin Sod/Tazobactam (Sod 3.375 gm/ Dextrose) 50 mls @ 200 mls/hr IVPB Q8H-IV [facility] Last Admin: 02/16/17 10:59 Dose: 200 mls/hr Vancomycin HCl 1,000 mg/ (Dextrose) 250 mls @ 166.667 mls/hr IVPB Q12H [facility] Levothyroxine Sodium (Synthroid -) 100 mcg PO DAILY@0700 [facility] Last Admin: 02/16/17 06:36 Dose: Not Given Mirtazapine (Remeron -) 7.5 mg PO DAILY [facility] Last Admin: 02/16/17 09:35 Dose: Not Given Pantoprazole Sodium (Protonix -) 40 mg PO DAILY [facility] Last Admin: 02/16/17 09:35 Dose: Not Given Sodium Chloride (Sodium Chloride Tablet -) 1 gm PO DAILY [facility] Last Admin: 02/16/17 09:36 Dose: Not Given A/P r/o Esophago-Tracheal Fistula vs Larygeal Aspiration Pneumonia Hyponatremia improved Multiple Sclerosis Vent Dependent Chronic Respiratory Failure HTN - keep NPO - will need G tube - IVF - antibiotics per ID - continue mechanical ventilation - DVT prophylaxis - monitor CXR
--- NOTE | 2017-02-16 16:14 | CONSULT ---
Consult - text type - Consultation Consultation Note: NEUROLOGY CONSULTATION is greatly appreciated: Events reviewed and discussed with Jeremias's mother and the Nurse clinician. 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 S/P tracheostomy and maintained at home with Nocturnal ventilation. Has a fenestrated (talking) trache for daytime use. Mother relates progressive difficulty with swallowing since last admission ( when we first addressed this issue). Now admitted with fevers, WBC=11.2. On antibiotics although the source of the fever remains uncertain. Acetaminophen (Tylenol -) 650 mg PO Q6H PRN PRN Reason: FEVER OR PAIN Amlodipine Besylate (Norvasc -) 10 mg PO DAILY [facility] Last Admin: 02/16/17 09:35 Dose: Not Given Carbamazepine (Tegretol -) 200 mg PO TID [facility] Last Admin: 02/16/17 06:36 Dose: Not Given Heparin Sodium (Porcine) (Heparin -) 5,000 unit SQ BID [facility] Last Admin: 02/16/17 10:08 Dose: 5,000 unit Hydralazine HCl (Apresoline -) 25 mg PO TID [facility] Last Admin: 02/16/17 06:35 Dose: Not Given Potassium Chloride/Dextrose/Sod Cl (D5-1/2ns+20 Meq Kcl -) 20 meq in 1,000 mls @ 83 mls/hr IV ASDIR [facility] Last Admin: 02/16/17 06:00 Dose: 83 mls/hr Piperacillin Sod/Tazobactam (Sod 3.375 gm/ Dextrose) 50 mls @ 200 mls/hr IVPB Q8H-IV [facility] Last Admin: 02/16/17 02:17 Dose: 200 mls/hr Levothyroxine Sodium (Synthroid -) 100 mcg PO DAILY@0700 [facility] Last Admin: 02/16/17 06:36 Dose: Not Given Mirtazapine (Remeron -) 7.5 mg PO DAILY [facility] Last Admin: 02/16/17 09:35 Dose: Not Given Pantoprazole Sodium (Protonix -) 40 mg PO DAILY [facility] GODFREY: Low grade temp.(100.4). Neck supple. +Trache. + Oropharyngeal lesions ? Thrush? NEURO: Awake, alert. Well-oriented. Nystagmus on Left gaze. Decreased vision. Tetraplegic. Areflexic. Decreased touch all 4's. IMP: Advanced MS with severe cervical myelopathy due to high cervical plaque resulting in Tetraplegia and respiratory compromise. Progressive dysphagia. All will worsen with toxic-metabolic encephalopathy due to infection. [id number] on Tegretol (200 mg TID). SUGGEST: Continue Rx for presumed aspiration while pursuing source of fevers. Would avoid steroid Rx with undiagnosed infection possible. Continue Tegretol 200 TID. Check OSEI, ESR, CRP. Consider PEG for nutrional support and hydration. ID follow-up for possible Rx of oropharyngeal Thrush. Thank you very much, Rom Conroy MD
--- NOTE | 2017-02-16 16:31 | PN ---
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 Selected Entries 02/11/17 02/11/17 02/12/17 13:57 22:00 06:00 Breakfast Lunch Supper Temperature 92.5 F L 94.1 F L 95.1 F L 02/12/17 02/12/17 02/12/17 10:30 14:00 17:50 Breakfast Lunch Supper Temperature 99.6 F 99.2 F 100.2 F H 02/12/17 02/12/17 02/13/17 20:00 22:00 02:00 Breakfast Lunch Supper Temperature 99.7 F H 100.3 F H 99.6 F 02/13/17 02/13/17 02/13/17 06:00 10:00 10:44 Breakfast 0 Lunch Supper Temperature 99.7 F H 99.0 F 02/13/17 02/13/17 02/14/17 14:29 18:19 02:00 Breakfast Lunch 0 Supper 0 Temperature 98.1 F 98.9 F 98.2 F 02/14/17 02/14/17 02/14/17 06:00 10:00 12:44 Breakfast NPO Lunch Supper Temperature 99 F 99.2 F 02/14/17 02/14/17 02/14/17 14:54 15:00 18:57 Breakfast Lunch NPO Supper NPO Temperature 100.9 F H 99.4 F 02/15/17 02/15/17 02/15/17 02:00 06:00 09:00 Breakfast Lunch Supper Temperature 98.2 F 97.6 F 97.3 F L 02/15/17 02/15/17 02/15/17 11:51 14:28 19:00 Breakfast NPO Lunch NPO Supper Temperature 98.7 F 99.6 F 02/15/17 02/16/17 02/16/17 22:00 00:00 02:00 Breakfast Lunch Supper Temperature 101.2 F H 100.9 F H 100.9 F H 02/16/17 02/16/17 02/16/17 06:00 10:00 14:35 Breakfast Lunch Supper Temperature 100.5 F H 99.8 F H 100.7 F H 02/16/17 14:55 Breakfast Lunch Supper Temperature 100.2 F H Laboratory Tests 12/09/2102/12/17 02/13/17 15:30 05:55 06:40 WBC 8.7 6.7 12.2 H D 02/14/17 02/15/17 02/16/17 07:30 06:45 07:10 WBC 13.5 H 12.3 H 11.2 H CXR noted. Cognition improving slightly. Delayed ability to follow commands. Stuck out tongue following 3 requests, and then continued when asked to smile. With practice, did smile, drool on left side. Able to elicit mouthed verbal responses. eg "March" "[facility]" "2009" "[place]/Ana M" for orientation responses. Able to intiate a swallow upon command today, not elicited last night. Concur with NGT for now. Hopefully swallowing/Cognition will improve to baseline noted during MBS before admission. To me, performance is significant change as compared to status the day before admission. Pt does present with significant dysphagia at present,however, pt was more oriented, verbal,and swallowing was significantly more functional. Suspect related to toxic-metabolic encephalopathy due to infection vs MS progression. PEG may be needed to supplement PO, if swallowing becomes more functional as pt recovers from acute infection, to provide consistency of medication, hydration and nutrition. Suction PRN, maintain HOB elevated, mouth care.
--- NOTE | 2017-02-16 17:31 | PN ---
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, Physician History of Present Illness: Coverage for Dr Vu Pt seen and examined at bedside. Chart was reviewed. She was followed for hyponatremia however that is now improved. - Current Medication List Current Medications: Active Medications Acetaminophen (Tylenol Suppository -) 650 mg NC Q4H PRN PRN Reason: FEVER OR PAIN Last Admin: 02/16/17 12:13 Dose: 650 mg Amlodipine Besylate (Norvasc -) 10 mg PO DAILY [facility] Last Admin: 02/16/17 09:35 Dose: Not Given Carbamazepine (Tegretol -) 200 mg PO TID [facility] Last Admin: 02/16/17 13:30 Dose: Not Given Heparin Sodium (Porcine) (Heparin -) 5,000 unit SQ BID [facility] Last Admin: 02/16/17 10:08 Dose: 5,000 unit Hydralazine HCl (Apresoline -) 25 mg PO TID [facility] Last Admin: 02/16/17 13:30 Dose: Not Given Potassium Chloride/Dextrose/Sod Cl (D5-1/2ns+20 Meq Kcl -) 20 meq in 1,000 mls @ 83 mls/hr IV ASDIR [facility] Last Admin: 02/16/17 10:53 Dose: Not Given Piperacillin Sod/Tazobactam (Sod 3.375 gm/ Dextrose) 50 mls @ 200 mls/hr IVPB Q8H-IV [facility] Last Admin: 02/16/17 10:59 Dose: 200 mls/hr Vancomycin HCl 1,000 mg/ (Dextrose) 250 mls @ 166.667 mls/hr IVPB Q12H [facility] Levothyroxine Sodium (Synthroid -) 100 mcg PO DAILY@0700 [facility] Last Admin: 02/16/17 06:36 Dose: Not Given Mirtazapine (Remeron -) 7.5 mg PO DAILY [facility] Last Admin: 02/16/17 09:35 Dose: Not Given Pantoprazole Sodium (Protonix -) 40 mg PO DAILY [facility] Last Admin: 02/16/17 09:35 Dose: Not Given Sodium Chloride (Sodium Chloride Tablet -) 1 gm PO DAILY [facility] Last Admin: 02/16/17 09:36 Dose: Not Given - Objective Vital Signs: Vital Signs Temperature 100.2 F H 02/16/17 14:55 Pulse Rate 75 02/16/17 14:55 Respiratory Rate 14 02/16/17 14:55 Blood Pressure 143/82 02/16/17 14:55 O2 Sat by Pulse Oximetry (%) 98 02/16/17 09:31 Constitutional: Yes: Calm Neck: Yes: Other (trache) Cardiovascular: Yes: S1, S2 Respiratory: Yes: Mechanically Ventilated Gastrointestinal: Yes: Soft Genitourinary: Yes: Perera Present Musculoskeletal: Yes: Muscle Weakness Edema: LLE: Trace, RLE: Trace Neurological: Yes: Pre-Existing Deficit Labs: CBC, BMP 02/16/17 07:10 02/16/17 07:10 INR, PTT INR 0.99 (0.82-1.09) 02/11/17 16:40 Assessment/Plan Current Medications Generic Name Dose Route Start Last Admin Trade Name Freq PRN Reason Stop Dose Admin Acetaminophen 650 mg 02/16/17 10:46 02/16/17 12:13 Tylenol Suppository - NC 650 mg Q4H PRN Administration FEVER OR PAIN Amlodipine Besylate 10 mg 02/13/17 10:00 02/16/17 09:35 Norvasc - PO Not Given DAILY [facility] Carbamazepine 200 mg 02/12/17 14:00 02/16/17 13:30 Tegretol - PO Not Given TID [facility] Heparin Sodium (Porcine) 5,000 unit 02/12/17 22:00 02/16/17 10:08 Heparin - SQ 5,000 unit BID [facility] Administration Hydralazine HCl 25 mg 02/12/17 14:00 02/16/17 13:30 Apresoline - PO Not Given TID [facility] Potassium Chloride/Dextrose/Sod Cl 20 meq in 1,000 mls @ 83 mls/hr 02/13/17 10 :30 02/16/17 10:53 D5-1/2ns+20 Meq Kcl - IV Not Given ASDIR [facility] Piperacillin Sod/Tazobactam 50 mls @ 200 mls/hr 02/13/17 17:54 02/16/17 10:59 Sod 3.375 gm/ Dextrose IVPB 200 mls/hr Q8H-IV [facility] Administration Vancomycin HCl 1,000 mg/ 250 mls @ 166.667 mls/hr 02/16/17 15:00 Dextrose IVPB Q12H [facility] Levothyroxine Sodium 100 mcg 02/13/17 07:00 02/16/17 06:36 Synthroid - PO Not Given DAILY@0700 [facility] Mirtazapine 7.5 mg 02/13/17 10:00 02/16/17 09:35 Remeron - PO Not Given DAILY [facility] Pantoprazole Sodium 40 mg 02/13/17 10:00 02/16/17 09:35 Protonix - PO Not Given DAILY [facility] Sodium Chloride 1 gm 02/13/17 10:00 02/16/17 09:36 Sodium Chloride Tablet - PO Not Given DAILY [facility] Impression 1. hyponatremia resolving 2. HTN 3. indwelling perera 4. anemia 5. Multiple sclerosis 6. fever 7. resp fail s/p trache Plan - sodium is stable - monitor lytes - monitor bp - speech and swallow follow up - anemia workup per primary team - discussed with family at bedside - will follow PRN Dr Castro
[2017-02-16] MEDS: VANCOMYCIN 1,000 MG in DEXTROSE 5%-WATER - 250 ML IVPB SCH (18:21)
[2017-02-16] MEDS: hydrALAZINE HCL 25 MG TABLET (FP) NGT SCH (23:21)
[2017-02-16] MEDS: carBAMazepine 200 MG TABLET NGT SCH (23:22)
[2017-02-17] MEDS ORDERED: PT OWN MED DRAWER 7, Y5N ONE ×3 (01:13→17:01)
[2017-02-17] MEDS: PIPERACILLIN/TAZOB 3.375 GM 3.375 GM in DEXTROSE 5%-WATER - 50 ML IVPB SCH ×3 (01:42→17:04)
[2017-02-17] MEDS: VANCOMYCIN 1,000 MG in DEXTROSE 5%-WATER - 250 ML IVPB SCH ×2 (02:33→18:17)
[2017-02-17 06:07] LABS: SERUM IRON 29 ug/dL (27-159); TOTAL IRON BINDING CAPACITY 166 ug/dL (250-450); UIBC 137 ug/dL (131-425)
[2017-02-17] MEDS: hydrALAZINE HCL 25 MG TABLET (FP) NGT SCH ×3 (06:51→21:49)
[2017-02-17] MEDS: LEVOTHYROXINE NA 100 MCG TABLET (FP) NGT SCH (06:54)
[2017-02-17] MEDS: carBAMazepine 200 MG TABLET NGT SCH ×3 (06:54→21:54)
[2017-02-17] MEDS ORDERED: amLODIPine BESYLATE 10 MG TABLET (FP) NGT SCH (10:00)
[2017-02-17] MEDS: HEPARIN NA (PORCINE) 5,000 UNITS/ML 1ML VIAL SQ SCH ×2 (10:18→21:49)
[2017-02-17] MEDS: MIRTAZAPINE 15 MG TABLET (FP) NGT SCH (10:18)
[2017-02-17] MEDS: SODIUM CHLORIDE 1 GM TABLET NGT SCH (10:19)
[2017-02-17] MEDS: PANTOPRAZOLE SOD 40 MG SUSPENSION PACKET NGT SCH (10:19)
--- NOTE | 2017-02-17 11:16 | PN ---
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 Following directives with eyes, tongue, lips. Mouthing words more responsively. Pt not oriented (2019,Obama). Improving but not at baseline.Pt was able to swallow her saliva upon command today. Reported copious secretions last night suctioned. Significant amount today as well. NGT in place. Feedings not initiated. Discussed with pt and her mother consideration for PEG insertion for possible use when pt is not able to safely accept PO intake. Her mother reports that 3 times over the month, food particle came out of trach. I suspect this is related to being fed when pt was too lethargic, poorly positioned, head extended. With proper positioning, pt did not aspirate during recent MBS.However , she certainly is at risk if fed in bed, with head in extension, larger bites, dryer foods, fed quickly etc. I believe pt has fair prognosis for improved swallowing function, maybe puree/ thick liquids initially, once infection clears, if Multiple Sclerosis symptoms have not progressed.
[2017-02-17 13:14] LABS: MCH 31.5 pg (25.7-33.7); MEAN CELL VOLUME 92.7 fl (80-96); MEAN PLT VOLUME 7.5 fl (7.5-11.1); PLATELET COUNT 185 K/MM3 (134-434); RDW 18.4 % (11.6-15.6); WHITE BLOOD COUNT 10.7 K/mm3 (4.0-10.0)
[2017-02-17 13:47] LABS: FERRITIN 1641.808 ng/ml (6.9-282.5)
--- NOTE | 2017-02-17 14:20 | PN ---
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, Physician Chief Complaint: leukocytosis, hyponatremia, weakness History of Present Illness: -trach collar- chronic due to MS goes on the mechanical vent at bedtime -febrile -repeat BC negative and UC preliminary shows NLF GNB -SC shows yeast- antifungal NGT? -seen by ID -on IV abx -NGT in place, awaiting recommendation by RD -pt and family doesn't want PEG - Current Medication List Current Medications: Active Medications Acetaminophen (Tylenol Oral Solution -) 650 mg NGT Q6H PRN PRN Reason: FEVER OR PAIN Amlodipine Besylate (Norvasc -) 10 mg NGT DAILY [facility] Last Admin: 02/17/17 10:19 Dose: 10 mg Carbamazepine (Tegretol -) 200 mg NGT TID [facility] Last Admin: 02/17/17 06:54 Dose: 200 mg Heparin Sodium (Porcine) (Heparin -) 5,000 unit SQ BID [facility] Last Admin: 02/17/17 10:18 Dose: 5,000 unit Hydralazine HCl (Apresoline -) 25 mg NGT TID [facility] Last Admin: 02/17/17 06:51 Dose: 25 mg Potassium Chloride/Dextrose/Sod Cl (D5-1/2ns+20 Meq Kcl -) 20 meq in 1,000 mls @ 83 mls/hr IV ASDIR [facility] Last Admin: 02/16/17 10:53 Dose: Not Given Piperacillin Sod/Tazobactam (Sod 3.375 gm/ Dextrose) 50 mls @ 200 mls/hr IVPB Q8H-IV [facility] Last Admin: 02/17/17 10:19 Dose: 200 mls/hr Vancomycin HCl 1,000 mg/ (Dextrose) 250 mls @ 166.667 mls/hr IVPB Q12H [facility] Last Admin: 02/17/17 02:33 Dose: 166.667 mls/hr Levothyroxine Sodium (Synthroid -) 100 mcg NGT DAILY@0700 [facility] Last Admin: 02/17/17 06:54 Dose: 100 mcg Mirtazapine (Remeron -) 7.5 mg NGT DAILY [facility] Last Admin: 02/17/17 10:18 Dose: 7.5 mg Pantoprazole Sodium (Protonix Packets For Oral Suspension -) 40 mg NGT DAILY [facility] Last Admin: 02/17/17 10:19 Dose: 40 mg Sodium Chloride (Sodium Chloride Tablet -) 1 gm NGT DAILY [facility] Last Admin: 02/17/17 10:19 Dose: 1 gm - Objective Vital Signs: Vital Signs Temperature 100.1 F H 02/17/17 06:00 Pulse Rate 81 02/17/17 10:00 Respiratory Rate 22 02/17/17 14:09 Blood Pressure 143/82 02/17/17 06:00 O2 Sat by Pulse Oximetry (%) 97 02/17/17 10:00 Constitutional: Yes: Well Nourished, No Distress, Calm Cardiovascular: Yes: Regular Rate and Rhythm Respiratory: Yes: Mechanically Ventilated Gastrointestinal: Yes: Normal Bowel Sounds, Soft Musculoskeletal: Yes: WNL Extremities: Yes: WNL Edema: No Peripheral Pulses WNL: Yes Neurological: Yes: Alert, Lethargy Psychiatric: Yes: Alert Labs: CBC, BMP 02/17/17 12:55 02/16/17 07:10 INR, PTT INR 0.99 (0.82-1.09) 02/11/17 16:40 Problem List - Problems (1) Hyponatremia Assessment/Plan: -resolved -IVF -nephrology on board Code(s): E87.1 - HYPO-OSMOLALITY AND HYPONATREMIA (2) Lethargy Assessment/Plan: -improved -weaker from her baseline -likely secondary to acute infectious process -seen by Neurology Dr Conroy Code(s): R53.83 - OTHER FATIGUE (3) Acute on chronic respiratory failure with hypoxia and hypercapnia Assessment/Plan: -on mechanical vent around the clock for now -seen by pulmonary Code(s): J96.21 - ACUTE AND CHRONIC RESPIRATORY FAILURE WITH HYPOXIA; J96.22 - ACUTE AND CHRONIC RESPIRATORY FAILURE WITH HYPERCAPNIA (4) Anemia Assessment/Plan: -acute on chronic -improved after 2 units PRBC -stool ob negative -labs reviewed -hematology consult appreciated -repeat labs in AM Code(s): D64.9 - ANEMIA, UNSPECIFIED Qualifiers: Other causes of anemia: other cause, not classified (5) Multiple sclerosis Assessment/Plan: -Chronic -seen by Neurology Dr Conroy -no steroids recommended in light of acute infection Code(s): G35 - MULTIPLE SCLEROSIS (6) Leukocytosis Assessment/Plan: -on IV abx -improved -ID on board -still febrile -acetaminophen NGT Q6H if needed -cooling blanket for fever over 101.0F Code(s): D72.829 - ELEVATED WHITE BLOOD CELL COUNT, UNSPECIFIED (7) Herpes zoster Assessment/Plan: -Left upper back -Valacyclovir 1g TID for 7 days Code(s): B02.9 - ZOSTER WITHOUT COMPLICATIONS Assessment/Plan see problem list left message for Sister Erinn to update on medical condition
[2017-02-17] MEDS: D5-1/2NS+20 MEQ KCL - 20 MEQ/1,000 ML INFUS.BAG IV SCH ×2 (14:56→19:19)
--- NOTE | 2017-02-17 15:53 | PN ---
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 (short form) - Note 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: Pulmonary Well known to our service LOW GRADE TEMP/MVV/TRACH/NGT RESTING ON VENT PALE/ANICTERIC GOOD B/L AIR ENTRY S1S2 SOFT HEEL OFFLOADERS LABS/MEDS/NOTES/IMAGING REVIEWED HGB 9.6 BUN15 PNA/FEVERS MS VENT DEP HTN NPO GTUBE PENDING IVF ABS MVV SAME SETTINGS DVT PROPHYLAXSIS Chris TINEO MD
[2017-02-17] MEDS: valACYclovir HCL 500 MG TABLET (FP) NGT SCH (21:54)
[2017-02-17] MEDS: SENNOSIDES 8.8 MG/5 ML BULK BOTTLE PO SCH (22:53)
[2017-02-18] MEDS: PIPERACILLIN/TAZOB 3.375 GM 3.375 GM in DEXTROSE 5%-WATER - 50 ML IVPB SCH ×3 (03:00→17:21)
[2017-02-18 06:07] LABS: SERUM IRON 29 ug/dL (27-159); TOTAL IRON BINDING CAPACITY 129 ug/dL (250-450); UIBC 100 ug/dL (131-425)
[2017-02-18] MEDS: carBAMazepine 200 MG TABLET NGT SCH ×3 (06:14→22:13)
[2017-02-18] MEDS: hydrALAZINE HCL 25 MG TABLET (FP) NGT SCH ×3 (06:14→22:12)
[2017-02-18] MEDS: valACYclovir HCL 500 MG TABLET (FP) NGT SCH ×3 (06:16→22:13)
[2017-02-18] MEDS: LEVOTHYROXINE NA 100 MCG TABLET (FP) NGT SCH (06:17)
[2017-02-18] MEDS ORDERED: PT OWN MED DRAWER 7, Y5N ONE ×2 (08:50→15:19)
[2017-02-18 08:51] LABS: BASO % 0.2 % (0-2.0); EOS % 2.8 % (0-4.5); MCH 31.2 pg (25.7-33.7); MCHC 33.2 g/dl (32.0-36.0); MEAN CELL VOLUME 94.1 fl (80-96); MEAN PLT VOLUME 7.9 fl (7.5-11.1); PLATELET COUNT 240 K/MM3 (134-434); RDW 18.3 % (11.6-15.6); WHITE BLOOD COUNT 10.6 K/mm3 (4.0-10.0)
[2017-02-18] MEDS: D5-1/2NS+20 MEQ KCL - 20 MEQ/1,000 ML INFUS.BAG IV SCH ×3 (09:05→22:22)
[2017-02-18] MEDS: SODIUM CHLORIDE 1 GM TABLET NGT SCH (09:06)
[2017-02-18] MEDS: amLODIPine BESYLATE 5 MG TABLET (FP) NGT SCH (09:06)
[2017-02-18] MEDS: MIRTAZAPINE 15 MG TABLET (FP) NGT SCH (09:06)
[2017-02-18] MEDS: HEPARIN NA (PORCINE) 5,000 UNITS/ML 1ML VIAL SQ SCH ×2 (09:06→22:12)
[2017-02-18] MEDS: PANTOPRAZOLE SOD 40 MG SUSPENSION PACKET NGT SCH (09:06)
[2017-02-18] MEDS ORDERED: VANCOMYCIN 1,000 MG in DEXTROSE 5%-WATER - 250 ML IVPB SCH (10:00)
[2017-02-18 10:07] LABS: ALBUMIN 2.1 g/dl (3.4-5.0); ALK PHOS 160 U/L (45-117); ANION GAP 9 (8-16); BILIRUBIN,TOTAL 0.5 mg/dL (0.2-1.0); CALCIUM 8.9 mg/dL (8.5-10.1); CO2 24 mmol/L (21-32); CREATININE 0.6 mg/dL (0.55-1.02); GLUCOSE,RANDOM 121 mg/dL (74-106); SGOT/AST 26 U/L (15-37); SGPT/ALT 32 U/L (12-78); TOT PROT 6.3 g/dl (6.4-8.2)
--- NOTE | 2017-02-18 13:36 | PN ---
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 (short form) - Note 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: Pulmonary Well known to our service LOW GRADE TEMP/MVV/TRACH/NGT RESTING ON VENT PALE/ANICTERIC GOOD B/L AIR ENTRY S1S2 SOFT HEEL OFFLOADERS LABS/MEDS/NOTES/IMAGING REVIEWED HGB 9.9 BUN12 PNA/FEVERS MS VENT DEP HTN NPO GTUBE PENDING IVF ABS MVV SAME SETTINGS DVT PROPHYLAXSIS PMV WHEN STABLE R RIVKA PATIÑO
--- NOTE | 2017-02-18 13:47 | PN ---
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 PEG decision is pending at this time.
--- NOTE | 2017-02-18 13:54 | PN ---
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, Physician Chief Complaint: ng tube for feeds- clogged will be replaced today by nurse seen by junior tinsley passuy tenzin valve tmw if patient is more awake and alert got 2 units of prbc yesterday - Current Medication List Current Medications: Active Medications Acetaminophen (Tylenol Oral Solution -) 650 mg NGT Q6H PRN PRN Reason: FEVER OR PAIN Amlodipine Besylate (Norvasc -) 5 mg NGT DAILY [facility] Last Admin: 02/18/17 09:06 Dose: 5 mg Carbamazepine (Tegretol -) 200 mg NGT TID [facility] Last Admin: 02/18/17 06:14 Dose: 200 mg Heparin Sodium (Porcine) (Heparin -) 5,000 unit SQ BID [facility] Last Admin: 02/18/17 09:06 Dose: 5,000 unit Hydralazine HCl (Apresoline -) 25 mg NGT TID [facility] Last Admin: 02/18/17 06:14 Dose: 25 mg Potassium Chloride/Dextrose/Sod Cl (D5-1/2ns+20 Meq Kcl -) 20 meq in 1,000 mls @ 83 mls/hr IV ASDIR [facility] Last Admin: 02/18/17 09:30 Dose: Not Given Piperacillin Sod/Tazobactam (Sod 3.375 gm/ Dextrose) 50 mls @ 200 mls/hr IVPB Q8H-IV [facility] Last Admin: 02/18/17 09:07 Dose: 200 mls/hr Vancomycin HCl 1,000 mg/ (Dextrose) 250 mls @ 166.667 mls/hr IVPB DAILY [facility] Last Admin: 02/18/17 09:07 Dose: 166.667 mls/hr Levothyroxine Sodium (Synthroid -) 100 mcg NGT DAILY@0700 [facility] Last Admin: 02/18/17 06:17 Dose: 100 mcg Mirtazapine (Remeron -) 7.5 mg NGT DAILY [facility] Last Admin: 02/18/17 09:06 Dose: 7.5 mg Pantoprazole Sodium (Protonix Packets For Oral Suspension -) 40 mg NGT DAILY [facility] Last Admin: 02/18/17 09:06 Dose: 40 mg Senna (Senna Oral Solution -) 8.8 mg PO HS [facility] Last Admin: 02/17/17 22:53 Dose: 8.8 mg Sodium Chloride (Sodium Chloride Tablet -) 1 gm NGT DAILY [facility] Last Admin: 02/18/17 09:06 Dose: 1 gm Valacyclovir HCl (Valtrex -) 1,000 mg NGT TID [facility] Last Admin: 02/18/17 06:16 Dose: 1,000 mg - Objective Vital Signs: Vital Signs Temperature 98.2 F 02/18/17 09:00 Pulse Rate 87 02/18/17 12:13 Respiratory Rate 16 02/18/17 11:10 Blood Pressure 126/61 02/18/17 09:00 O2 Sat by Pulse Oximetry (%) 99 02/18/17 12:13 Constitutional: Yes: Calm HENT: Yes: Other Neck: Yes: Other (trach) Cardiovascular: Yes: Regular Rate and Rhythm, S1, S2 Respiratory: Yes: Mechanically Ventilated Gastrointestinal: Yes: Normal Bowel Sounds, Soft Genitourinary: Yes: Raza Present Edema: No Neurological: Yes: Pre-Existing Deficit Labs: CBC, BMP 02/18/17 08:00 02/18/17 08:00 INR, PTT INR 0.99 (0.82-1.09) 02/11/17 16:40 Problem List - Problems (1) Lethargy Assessment/Plan: possible related to infection- possible aspiration on iv abx sodium level improved ng tube for feeding- no plans for G tube as of now had extensive discussion with louie and mother Code(s): R53.83 - OTHER FATIGUE (2) Hyponatremia Assessment/Plan: salt tablet currently NG tube bc she is NPO na is now improved to 139 Code(s): E87.1 - HYPO-OSMOLALITY AND HYPONATREMIA (3) Hx of multiple sclerosis Assessment/Plan: with functional quadriplegia frequent turn and position dvt ppx neurology on board Code(s): Z86.69 - PERSONAL HISTORY OF DIS OF THE NERVOUS SYS AND SENSE ORGANS (4) Hypothyroid Assessment/Plan: on synthroid Code(s): E03.9 - HYPOTHYROIDISM, UNSPECIFIED (5) Neurogenic bladder Assessment/Plan: chronic indwelling catheter changed every 2 weeks no need for abx for now Code(s): N31.9 - NEUROMUSCULAR DYSFUNCTION OF BLADDER, UNSPECIFIED (6) Chronic respiratory failure Assessment/Plan: on vent support dr avilez saw the patient possible pausy tenzin valve tmw if patient is more awake alert tmw Code(s): J96.10 - CHRONIC RESPIRATORY FAILURE, UNSP W HYPOXIA OR HYPERCAPNIA (7) HTN (hypertension) Assessment/Plan: [facility] BP is high 167/68 on hydralazine Code(s): I10 - ESSENTIAL (PRIMARY) HYPERTENSION (8) Anemia Assessment/Plan: got 2 units prbc h/h improved Code(s): D64.9 - ANEMIA, UNSPECIFIED Qualifiers: Other causes of anemia: other cause, not classified
--- NOTE | 2017-02-18 14:56 | PN ---
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, ACID EXTRACTOR - Note 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: Improving, now mouthing words, swallowing upn command, no longer drooling. Not yet at baseline. Trial of 1/2 tsp of puree was swallowed. Silent aspiration can not be r/o at bedside. Audible air leakage from trach noted. PMD/pulmonary informed. NGT needed to be removed and reinserted. Suggest PMV evaluation, followed by swallow re-evaluation. Discussed possible PEG to supplement as needed. Pt and family are not ready to agree to PEG insertion at this sofi, but feel it will be needed at some time.
--- NOTE | 2017-02-18 16:17 | PN ---
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 (short form) - Note 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: responsive NPO/ng feeds rash left shoulder Vital Signs Period Temp Pulse Resp BP Sys/Morillo Pulse Ox Last 24 Hr 98.0 F-99.7 F 64-107 14-18 98-138/56-66 97-99 cor-rrr lungs decreased bs at bases abd soft,nt ext no edema Rash left shoulder- small patch- ?vesicular cxray unchanged CBC, BMP 02/18/17 08:00 02/18/17 08:00 Microbiology 02/16/17 12:15 Sputum - Endotrachea Suction/Ventilator Gram Stain - Final 02/16/17 12:15 Sputum - Endotrachea Suction/Ventilator Sputum Culture - Preliminary Yeast Like Organism Non Lactose Fermenting Gnb 02/16/17 12:30 Sputum - Endotrachea Suction/Ventilator Gram Stain - Final 02/16/17 12:30 Sputum - Endotrachea Suction/Ventilator Sputum Culture - Preliminary Non Lactose Fermenting Gnb Yeast Like Organism 02/16/17 01:20 Urine - Urine Raza Urine Culture - Final Pseudomonas Aeruginosa 02/15/17 21:40 Blood - Peripheral Venous Blood Culture - Preliminary NO GROWTH OBTAINED AFTER 48 HOURS, INCUBATION TO CONTINUE FOR 3 DAYS. 02/15/17 21:40 Blood - Peripheral Venous Blood Culture - Preliminary NO GROWTH OBTAINED AFTER 48 HOURS, INCUBATION TO CONTINUE FOR 3 DAYS. 02/11/17 15:30 Blood - Peripheral Venous Blood Culture - Final NO GROWTH AFTER 5 DAYS INCUBATION 02/11/17 16:40 Blood - Peripheral Venous Blood Culture - Final NO GROWTH AFTER 5 DAYS INCUBATION 02/14/17 11:00 Urine - Urine Raza Urine Culture - Final NO GROWTH OBTAINED 02/11/17 17:39 Urine - Urine Clean Catch Urine Culture - Final Contaminated: Please Repeat a/p ?aspiration-NPO continue zosyn for aspiration , d/c vancomycin, sputum GNR f/u cultures, sputum culture too possible zoster left shoulder- started on valtrex yesterday chronic respiratory failure MS Problem List - Problems (1) Altered mental status Code(s): R41.82 - ALTERED MENTAL STATUS, UNSPECIFIED Qualifiers: Altered mental status type: unspecified Qualified Code(s): R41.82 - Altered mental status, unspecified (2) Hyponatremia Code(s): E87.1 - HYPO-OSMOLALITY AND HYPONATREMIA (3) Chronic hypercapnic respiratory failure Code(s): J96.12 - CHRONIC RESPIRATORY FAILURE WITH HYPERCAPNIA (4) Hx of multiple sclerosis Code(s): Z86.69 - PERSONAL HISTORY OF DIS OF THE NERVOUS SYS AND SENSE ORGANS
[2017-02-18] MEDS: SENNOSIDES 8.8 MG/5 ML BULK BOTTLE PO SCH (22:12)
[2017-02-19] MEDS: PIPERACILLIN/TAZOB 3.375 GM 3.375 GM in DEXTROSE 5%-WATER - 50 ML IVPB SCH ×3 (02:27→18:43)
[2017-02-19] MEDS: ACETAMINOPHEN 650 MG/20.3 ML ORAL SOLUTION (CUPS) NGT PRN ×2 (02:27→14:30)
[2017-02-19] MEDS: hydrALAZINE HCL 25 MG TABLET (FP) NGT SCH ×3 (06:38→21:35)
[2017-02-19] MEDS: carBAMazepine 200 MG TABLET NGT SCH ×3 (06:38→21:35)
[2017-02-19] MEDS: valACYclovir HCL 500 MG TABLET (FP) NGT SCH ×3 (06:38→21:35)
[2017-02-19] MEDS: LEVOTHYROXINE NA 100 MCG TABLET (FP) NGT SCH (06:39)
[2017-02-19 08:06] LABS: BASO % 0.1 % (0-2.0); EOS % 2.8 % (0-4.5); MCH 30.5 pg (25.7-33.7); MCHC 32.3 g/dl (32.0-36.0); MEAN CELL VOLUME 94.5 fl (80-96); MEAN PLT VOLUME 7.7 fl (7.5-11.1); NEUT % 75.5 % (42.8-82.8); PLATELET COUNT 288 K/MM3 (134-434); RDW 18.1 % (11.6-15.6); WHITE BLOOD COUNT 11.8 K/mm3 (4.0-10.0)
[2017-02-19 08:12] LABS: ALBUMIN 1.8 g/dl (3.4-5.0); ANION GAP 7 (8-16); BILIRUBIN,TOTAL 0.5 mg/dL (0.2-1.0); CO2 27 mmol/L (21-32); CREATININE 0.6 mg/dL (0.55-1.02); GLUCOSE,RANDOM 137 mg/dL (74-106); SGOT/AST 15 U/L (15-37); SGPT/ALT 23 U/L (12-78); TOT PROT 5.9 g/dl (6.4-8.2)
[2017-02-19 08:13] LABS: ALK PHOS 140 U/L (45-117)
[2017-02-19] MEDS ORDERED: PT OWN MED DRAWER 7, Y5N ONE ×3 (09:52→18:08)
[2017-02-19] MEDS: AMINO ACIDS/PROTEIN HYDROLYS 30 ML LIQUID.PKT PO SCH ×2 (09:56→18:43)
--- NOTE | 2017-02-19 09:56 | PN ---
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 (short form) - Note 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: responsive NPO/ng feeds Vital Signs Period Temp Pulse Resp BP Sys/Morillo Pulse Ox Last 24 Hr 99.3 F-100.4 F 74-116 14-21 119-130/64-89 98-99 cor-rrr lungs decreased bs at bases abd soft, +perera ext no edema sacrum- 2 open wounds, no purulence, no erythema rash on shoulder drying CBC, BMP 02/19/17 07:15 02/19/17 07:15 Microbiology 02/15/17 21:40 Blood Culture - Preliminary Blood - Peripheral Venous NO GROWTH OBTAINED AFTER 72 HOURS, INCUBATION TO CONTINUE FOR 2 DAYS. 02/15/17 21:40 Blood Culture - Preliminary Blood - Peripheral Venous NO GROWTH OBTAINED AFTER 72 HOURS, INCUBATION TO CONTINUE FOR 2 DAYS. 02/16/17 12:15 Gram Stain - Final Sputum - Endotrachea Suction/Ventilator Sputum Culture - Preliminary Yeast Like Organism Non Lactose Fermenting Gnb 02/16/17 12:30 Gram Stain - Final Sputum - Endotrachea Suction/Ventilator Sputum Culture - Preliminary Non Lactose Fermenting Gnb Yeast Like Organism 02/16/17 01:20 Urine Culture - Final Urine - Urine Perera Pseudomonas Aeruginosa a/p ?aspiration-NPO continue zosyn for aspiration , d/c vancomycin, sputum GNR f/u cultures, sputum culture too possible zoster left shoulder- started on valtrex day #2, rash drying chronic respiratory failure MS d/w Dr Ball Problem List - Problems (1) Altered mental status Code(s): R41.82 - ALTERED MENTAL STATUS, UNSPECIFIED Qualifiers: Altered mental status type: unspecified Qualified Code(s): R41.82 - Altered mental status, unspecified (2) Hyponatremia Code(s): E87.1 - HYPO-OSMOLALITY AND HYPONATREMIA (3) Chronic hypercapnic respiratory failure Code(s): J96.12 - CHRONIC RESPIRATORY FAILURE WITH HYPERCAPNIA (4) Hx of multiple sclerosis Code(s): Z86.69 - PERSONAL HISTORY OF DIS OF THE NERVOUS SYS AND SENSE ORGANS
[2017-02-19] MEDS: HEPARIN NA (PORCINE) 5,000 UNITS/ML 1ML VIAL SQ SCH ×2 (09:57→21:35)
[2017-02-19] MEDS: PANTOPRAZOLE SOD 40 MG SUSPENSION PACKET NGT SCH (09:57)
[2017-02-19] MEDS: amLODIPine BESYLATE 5 MG TABLET (FP) NGT SCH (09:58)
[2017-02-19] MEDS: MIRTAZAPINE 15 MG TABLET (FP) NGT SCH (09:58)
[2017-02-19] MEDS: SODIUM CHLORIDE 1 GM TABLET NGT SCH (09:59)
--- NOTE | 2017-02-19 10:05 | PN ---
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, Physician Chief Complaint: patient more awake and alert today tmax is 100 wbc 11.8 - Current Medication List Current Medications: Active Medications Acetaminophen (Tylenol Oral Solution -) 650 mg NGT Q6H PRN PRN Reason: FEVER OR PAIN Last Admin: 02/19/17 02:27 Dose: 650 mg Amino Acids (Prosource No Carb Liquid Pkt) 30 ml PO BID@0800,1730 [facility] Last Admin: 02/19/17 09:56 Dose: 30 ml Amlodipine Besylate (Norvasc -) 5 mg NGT DAILY [facility] Last Admin: 02/19/17 09:58 Dose: 5 mg Carbamazepine (Tegretol -) 200 mg NGT TID [facility] Last Admin: 02/19/17 06:38 Dose: 200 mg Heparin Sodium (Porcine) (Heparin -) 5,000 unit SQ BID [facility] Last Admin: 02/19/17 09:57 Dose: 5,000 unit Hydralazine HCl (Apresoline -) 25 mg NGT TID [facility] Last Admin: 02/19/17 06:38 Dose: 25 mg Potassium Chloride/Dextrose/Sod Cl (D5-1/2ns+20 Meq Kcl -) 20 meq in 1,000 mls @ 83 mls/hr IV ASDIR [facility] Last Admin: 02/18/17 22:22 Dose: 83 mls/hr Piperacillin Sod/Tazobactam (Sod 3.375 gm/ Dextrose) 50 mls @ 200 mls/hr IVPB Q8H-IV [facility] Last Admin: 02/19/17 02:27 Dose: 200 mls/hr Levothyroxine Sodium (Synthroid -) 100 mcg NGT DAILY@0700 [facility] Last Admin: 02/19/17 06:39 Dose: 100 mcg Mirtazapine (Remeron -) 7.5 mg NGT DAILY [facility] Last Admin: 02/19/17 09:58 Dose: 7.5 mg Pantoprazole Sodium (Protonix Packets For Oral Suspension -) 40 mg NGT DAILY [facility] Last Admin: 02/19/17 09:57 Dose: 40 mg Senna (Senna Oral Solution -) 8.8 mg PO HS [facility] Last Admin: 02/18/17 22:12 Dose: 8.8 mg Sodium Chloride (Sodium Chloride Tablet -) 1 gm NGT DAILY [facility] Last Admin: 02/19/17 09:59 Dose: 1 gm Valacyclovir HCl (Valtrex -) 1,000 mg NGT TID [facility] Last Admin: 02/19/17 06:38 Dose: 1,000 mg - Objective Vital Signs: Vital Signs Temperature 100 F H 02/19/17 09:38 Pulse Rate 74 02/19/17 09:38 Respiratory Rate 16 02/19/17 09:38 Blood Pressure 123/72 02/19/17 09:38 O2 Sat by Pulse Oximetry (%) 98 02/18/17 21:00 Constitutional: Yes: Calm Neck: Yes: Other (trach) Cardiovascular: Yes: S1, S2 Respiratory: Yes: CTA Bilaterally, Mechanically Ventilated Gastrointestinal: Yes: Normal Bowel Sounds, Soft Genitourinary: Yes: Raza Present Edema: No Integumentary: Yes: Other (left shoulder small vesicles rash noted drying up) Wound/Incision: Yes: Other (2 sacral wounds noted no purulent discharge noted) Neurological: Yes: Alert, Pre-Existing Deficit (quadraplegia) Labs: CBC, BMP 02/19/17 07:15 02/19/17 07:15 INR, PTT INR 0.99 (0.82-1.09) 02/11/17 16:40 Problem List - Problems (1) Lethargy Assessment/Plan: possible related to infection- possible aspiration on iv abx sodium level improved ng tube for feeding- no plans for G tube as of now had extensive discussion with louie and mother Code(s): R53.83 - OTHER FATIGUE (2) Hyponatremia Assessment/Plan: salt tablet Code(s): E87.1 - HYPO-OSMOLALITY AND HYPONATREMIA (3) Hx of multiple sclerosis Assessment/Plan: with functional quadriplegia frequent turn and position dvt ppx neurology on board Code(s): Z86.69 - PERSONAL HISTORY OF DIS OF THE NERVOUS SYS AND SENSE ORGANS (4) Hypothyroid Assessment/Plan: on synthroid Code(s): E03.9 - HYPOTHYROIDISM, UNSPECIFIED (5) Neurogenic bladder Assessment/Plan: chronic indwelling catheter changed every 2 weeks no need for abx for now Code(s): N31.9 - NEUROMUSCULAR DYSFUNCTION OF BLADDER, UNSPECIFIED (6) Chronic respiratory failure Assessment/Plan: on vent support possible pausy tenzin valve today Code(s): J96.10 - CHRONIC RESPIRATORY FAILURE, UNSP W HYPOXIA OR HYPERCAPNIA (7) HTN (hypertension) Assessment/Plan: [facility] BP is high 167/68 on hydralazine Code(s): I10 - ESSENTIAL (PRIMARY) HYPERTENSION (8) Anemia Assessment/Plan: got 2 units prbc h/h improved Code(s): D64.9 - ANEMIA, UNSPECIFIED Qualifiers: Other causes of anemia: other cause, not classified (9) Herpes zoster Assessment/Plan: on valtrex Code(s): B02.9 - ZOSTER WITHOUT COMPLICATIONS
[2017-02-19 10:14] LABS: A/G RATIO 0.6 (0.7-1.7); ALBUMIN 2.1 g/dL (2.9-4.4); ALPHA-1-GLOBULIN 0.5 g/dL (0.0-0.4); BETA GLOBULIN 0.9 g/dL (0.7-1.3); GAMMA GLOBULIN 1.2 g/dL (0.4-1.8); GLOBULIN, TOTAL 3.7 g/dL (2.2-3.9); M-SPIKE Not Observed g/dL (Not Observed); TOTAL PROTEIN 5.8 g/dL (6.0-8.5)
--- NOTE | 2017-02-19 10:59 | PN ---
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 (short form) - Note 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: Patient seen examined. Labs reviewed. Chart reviewed. O/E: general: in NAD NCAT Neck: Trach in place to vent Cor: RRR Abdomen: palpable implanted device LE: no edema. Last Vital Signs Temp Pulse Resp BP Pulse Ox 100 F H 74 16 123/72 98 02/19/17 09:38 02/19/17 09:38 02/19/17 09:38 02/19/17 09:38 02/18/17 21:00 CBC, BMP 02/19/17 07:15 02/19/17 07:15 Current Medications Generic Name Dose Route Start Last Admin Trade Name Freq PRN Reason Stop Dose Admin Acetaminophen 650 mg 02/17/17 14:13 02/19/17 02:27 Tylenol Oral Solution - NGT 650 mg Q6H PRN Administration FEVER OR PAIN Amino Acids 30 ml 02/19/17 08:00 02/19/17 09:56 Prosource No Carb Liquid Pkt PO 30 ml BID@0800,1730 [facility] Administration Amlodipine Besylate 5 mg 02/18/17 10:00 02/19/17 09:58 Norvasc - NGT 5 mg DAILY [facility] Administration Carbamazepine 200 mg 02/16/17 22:00 02/19/17 06:38 Tegretol - NGT 200 mg TID [facility] Administration Heparin Sodium (Porcine) 5,000 unit 02/12/17 22:00 02/19/17 09:57 Heparin - SQ 5,000 unit BID [facility] Administration Hydralazine HCl 25 mg 02/17/17 22:00 02/19/17 06:38 Apresoline - NGT 25 mg TID [facility] Administration Potassium Chloride/Dextrose/Sod Cl 20 meq in 1,000 mls @ 83 mls/hr 02/13/17 10 :30 02/18/17 22:22 D5-1/2ns+20 Meq Kcl - IV 83 mls/hr ASDIR [facility] Administration Piperacillin Sod/Tazobactam 50 mls @ 200 mls/hr 02/13/17 17:54 02/19/17 02:27 Sod 3.375 gm/ Dextrose IVPB 200 mls/hr Q8H-IV [facility] Administration Levothyroxine Sodium 100 mcg 02/17/17 07:00 02/19/17 06:39 Synthroid - NGT 100 mcg DAILY@0700 [facility] Administration Mirtazapine 7.5 mg 02/17/17 10:00 02/19/17 09:58 Remeron - NGT 7.5 mg DAILY [facility] Administration Pantoprazole Sodium 40 mg 02/17/17 10:00 02/19/17 09:57 Protonix Packets For Oral Suspension - NGT 40 mg DAILY [facility] Administration Senna 8.8 mg 02/17/17 22:00 02/18/17 22:12 Senna Oral Solution - PO 8.8 mg HS [facility] Administration Sodium Chloride 1 gm 02/17/17 10:00 02/19/17 09:59 Sodium Chloride Tablet - NGT 1 gm DAILY [facility] Administration Valacyclovir HCl 1,000 mg 02/17/17 22:00 02/19/17 06:38 Valtrex - NGT 1,000 mg TID [facility] Administration Anemia Normocytic/normochromic Iron studies consistent with ACD/ACI SPEP negative stool OB negative B12/folate wnl supportive care and transfusion as needed Prolonged PTT repeat with still elevated ?VitK def in the setting of poor oral intake may have a role no bleeding noted for PTT mixing studies Zoster/Asp PNA Treatment per ID Problem List - Problems (1) Anemia Code(s): D64.9 - ANEMIA, UNSPECIFIED Qualifiers: Other causes of anemia: other cause, not classified (2) Lethargy Code(s): R53.83 - OTHER FATIGUE (3) Chronic respiratory failure Code(s): J96.10 - CHRONIC RESPIRATORY FAILURE, UNSP W HYPOXIA OR HYPERCAPNIA (4) Leukocytosis Code(s): D72.829 - ELEVATED WHITE BLOOD CELL COUNT, UNSPECIFIED (5) Multiple sclerosis Code(s): G35 - MULTIPLE SCLEROSIS
[2017-02-19] MEDS: D5-1/2NS+20 MEQ KCL - 20 MEQ/1,000 ML INFUS.BAG IV SCH (11:47)
--- NOTE | 2017-02-19 13:41 | PN ---
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 (short form) - Note 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: Pulmonary Well known to our service LOW GRADE TEMP/MVV/TRACH/NGT RESTING ON VENT PALE/ANICTERIC GOOD B/L AIR ENTRY S1S2 SOFT HEEL OFFLOADERS LABS/MEDS/NOTES/IMAGING REVIEWED HGB 9.1 BUN11 PNA/FEVERS MS VENT DEP HTN NGT IVF ABS MVV SAME SETTINGS DVT PROPHYLAXSIS PMV WHEN STABLE Chris TINEO MD
--- NOTE | 2017-02-19 15:16 | PN ---
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, BIAS C[employer]TER - Note 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: Pt talking over cuff, with wet vocal quality. RT suctioned pt, with a lot of secretions removed through #6 trach and oropharyngeally. PMV trial with good voicing with o2 sat at 96%. Secretions around the trach b/n the #6 trach and larger stoma, now packed with gauze to reduce air leakage. PO trial not performed due to audible secretions while pt was speaking. IMP: air leakage around stoma,O2 sat good. A lot of secretions,Vocal wetness with suspected intermittent aspiration on secretions. Selected Entries 02/18/17 02/18/17 02/18/17 06:00 09:00 14:21 Lunch Temperature 98.0 F 98.2 F 99.7 F H 02/18/17 02/18/17 02/19/17 15:00 18:00 02:00 Lunch Temperature 99.3 F 99.8 F H 100.4 F H 02/19/17 02/19/17 02/19/17 06:11 09:38 14:22 Lunch NPO Temperature 99.5 F 100 F H 100.2 F H Laboratory Tests 02/17/17 02/18/17 02/19/17 12:55 08:00 07:15 WBC 10.7 H 10.6 H 11.8 H REC: Suction PRN to reduce secretions. Suction well before PMV trials,as tolerated Is trach size appropriate/cuff functioning? Pt vocalizes with cuff inflated.
--- NOTE | 2017-02-19 19:02 | CONSULT ---
Consult - text type - Consultation Consultation Note: NEUROLOGY FOLLOW-UP: Now with NG feeds. Still with difficulty swallowing, even her saliva. Mother at bedside suctioning frequently. Still with low grade temps. No seizures noted. EXAM Unchanged. +Facial myokymia Decreased vision. Full EOM's. Awake and alert. Flaccid tetraplegia. Areflexic. Decreased touch legs. IMP: Advanced MS SUGGEST: Await ENT for trache check. Continue antibiotics/ wound care. Continue tegretol for pain and seizures. Counselling re: PEG Thank you very much, Rom Conroy MD
[2017-02-19] MEDS: SENNOSIDES 8.8 MG/5 ML BULK BOTTLE PO SCH (21:35)
[2017-02-20] MEDS: PIPERACILLIN/TAZOB 3.375 GM 3.375 GM in DEXTROSE 5%-WATER - 50 ML IVPB SCH ×2 (02:01→10:35)
[2017-02-20] MEDS: ACETAMINOPHEN 650 MG/20.3 ML ORAL SOLUTION (CUPS) NGT PRN ×2 (02:14→15:46)
[2017-02-20] MEDS: hydrALAZINE HCL 25 MG TABLET (FP) NGT SCH ×3 (06:20→22:01)
[2017-02-20] MEDS: valACYclovir HCL 500 MG TABLET (FP) NGT SCH ×3 (06:20→22:02)
[2017-02-20] MEDS: carBAMazepine 200 MG TABLET NGT SCH ×3 (06:20→22:02)
[2017-02-20] MEDS: LEVOTHYROXINE NA 100 MCG TABLET (FP) NGT SCH (06:33)
[2017-02-20 07:48] LABS: BASO % 0.4 % (0-2.0); EOS % 3.4 % (0-4.5); MCH 31.6 pg (25.7-33.7); MCHC 33.2 g/dl (32.0-36.0); MEAN CELL VOLUME 95.3 fl (80-96); MEAN PLT VOLUME 7.3 fl (7.5-11.1); NEUT % 75.4 % (42.8-82.8); PLATELET COUNT 320 K/MM3 (134-434); RDW 17.5 % (11.6-15.6); WHITE BLOOD COUNT 10.6 K/mm3 (4.0-10.0)
[2017-02-20 07:58] LABS: INR 1.26 (0.82-1.09); PROTHROMBIN TIME (PATIENT) 14.2 SEC (9.98-11.88)
[2017-02-20 08:39] LABS: ALBUMIN 1.8 g/dl (3.4-5.0); ALK PHOS 124 U/L (45-117); ANION GAP 7 (8-16); BILIRUBIN,TOTAL 0.4 mg/dL (0.2-1.0); CALCIUM 8.3 mg/dL (8.5-10.1); CO2 28 mmol/L (21-32); CREATININE 0.5 mg/dL (0.55-1.02); GLUCOSE,RANDOM 113 mg/dL (74-106); SGOT/AST 14 U/L (15-37); SGPT/ALT 21 U/L (12-78); TOT PROT 5.9 g/dl (6.4-8.2)
--- NOTE | 2017-02-20 10:12 | PN ---
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, Physician Chief Complaint: ID Persistant fevers despite 5-6 days of antibiotic Luther Looks well very comfortable On off fever 101 last - Current Medication List Current Medications: Active Medications Acetaminophen (Tylenol Oral Solution -) 650 mg NGT Q6H PRN PRN Reason: FEVER OR PAIN Last Admin: 02/20/17 02:14 Dose: 650 mg Amino Acids (Prosource No Carb Liquid Pkt) 30 ml PO BID@0800,1730 [facility] Last Admin: 02/19/17 18:43 Dose: 30 ml Amlodipine Besylate (Norvasc -) 5 mg NGT DAILY [facility] Last Admin: 02/19/17 09:58 Dose: 5 mg Carbamazepine (Tegretol -) 200 mg NGT TID [facility] Last Admin: 02/20/17 06:20 Dose: 200 mg Heparin Sodium (Porcine) (Heparin -) 5,000 unit SQ BID [facility] Last Admin: 02/19/17 21:35 Dose: 5,000 unit Hydralazine HCl (Apresoline -) 25 mg NGT TID [facility] Last Admin: 02/20/17 06:20 Dose: 25 mg Piperacillin Sod/Tazobactam (Sod 3.375 gm/ Dextrose) 50 mls @ 200 mls/hr IVPB Q8H-IV [facility] Last Admin: 02/20/17 02:01 Dose: 200 mls/hr Levothyroxine Sodium (Synthroid -) 100 mcg NGT DAILY@0700 [facility] Last Admin: 02/20/17 06:33 Dose: 100 mcg Mirtazapine (Remeron -) 7.5 mg NGT DAILY [facility] Last Admin: 02/19/17 09:58 Dose: 7.5 mg Pantoprazole Sodium (Protonix Packets For Oral Suspension -) 40 mg NGT DAILY [facility] Last Admin: 02/19/17 09:57 Dose: 40 mg Senna (Senna Oral Solution -) 8.8 mg PO HS [facility] Last Admin: 02/19/17 21:35 Dose: 8.8 mg Sodium Chloride (Sodium Chloride Tablet -) 1 gm NGT DAILY [facility] Last Admin: 02/19/17 09:59 Dose: 1 gm Valacyclovir HCl (Valtrex -) 1,000 mg NGT TID [facility] Last Admin: 02/20/17 06:20 Dose: 1,000 mg - Objective Vital Signs: Vital Signs Temperature 98.8 F 02/20/17 09:00 Pulse Rate 81 02/20/17 09:00 Respiratory Rate 14 02/20/17 09:00 Blood Pressure 111/50 02/20/17 09:00 O2 Sat by Pulse Oximetry (%) 98 02/19/17 21:00 Constitutional: Yes: No Distress Neck: Yes: WNL, Supple Cardiovascular: Yes: Regular Rate and Rhythm, S1, S2 Respiratory: Yes: WNL, Regular, CTA Bilaterally Gastrointestinal: Yes: Soft. No: Tenderness Labs: CBC, BMP 02/20/17 07:25 02/20/17 07:25 INR, PTT INR 1.26 (0.82-1.09) H 02/20/17 07:25 Assessment/Plan Microbiology 02/16/17 12:30 Sputum - Endotrachea Suction/Ventilator Gram Stain - Final 02/16/17 12:30 Sputum - Endotrachea Suction/Ventilator Sputum Culture - Final Pseudomonas Aeruginosa Yeast Like Organism 02/16/17 12:15 Sputum - Endotrachea Suction/Ventilator Gram Stain - Final 02/16/17 12:15 Sputum - Endotrachea Suction/Ventilator Sputum Culture - Final Yeast Like Organism Pseudomonas Aeruginosa 02/16/17 01:20 Urine - Urine Raza Urine Culture - Final Pseudomonas Aeruginosa 02/15/17 21:40 Blood - Peripheral Venous Blood Culture - Preliminary NO GROWTH OBTAINED AFTER 96 HOURS, INCUBATION TO CONTINUE FOR 1 DAYS. 02/15/17 21:40 Blood - Peripheral Venous Blood Culture - Preliminary NO GROWTH OBTAINED AFTER 96 HOURS, INCUBATION TO CONTINUE FOR 1 DAYS. Laboratory Tests 02/20/17 02/20/17 07:25 07:25 WBC 10.6 H Hgb 8.4 L Hct 25.2 L Plt Count 320 BUN 18 D Assessment Fevers on off but looks well resistant organisms noted sputum pseudo resistant nusratsyn Plan Feel we should should stop her meds and watch for now Anam PATIÑO
[2017-02-20] MEDS: HEPARIN NA (PORCINE) 5,000 UNITS/ML 1ML VIAL SQ SCH ×2 (10:35→22:01)
[2017-02-20] MEDS: PANTOPRAZOLE SOD 40 MG SUSPENSION PACKET NGT SCH (10:35)
[2017-02-20] MEDS: SODIUM CHLORIDE 1 GM TABLET NGT SCH (10:35)
[2017-02-20] MEDS: amLODIPine BESYLATE 5 MG TABLET (FP) NGT SCH (10:35)
[2017-02-20] MEDS: AMINO ACIDS/PROTEIN HYDROLYS 30 ML LIQUID.PKT PO SCH ×2 (10:36→16:39)
[2017-02-20] MEDS: MIRTAZAPINE 15 MG TABLET (FP) NGT SCH (10:36)
--- NOTE | 2017-02-20 13:36 | PN ---
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, Physician - Current Medication List Current Medications: Active Medications Acetaminophen (Tylenol Oral Solution -) 650 mg NGT Q6H PRN PRN Reason: FEVER OR PAIN Last Admin: 02/20/17 02:14 Dose: 650 mg Amino Acids (Prosource No Carb Liquid Pkt) 30 ml PO BID@0800,1730 [facility] Last Admin: 02/20/17 10:36 Dose: 30 ml Amlodipine Besylate (Norvasc -) 5 mg NGT DAILY [facility] Last Admin: 02/20/17 10:35 Dose: 5 mg Carbamazepine (Tegretol -) 200 mg NGT TID [facility] Last Admin: 02/20/17 06:20 Dose: 200 mg Heparin Sodium (Porcine) (Heparin -) 5,000 unit SQ BID [facility] Last Admin: 02/20/17 10:35 Dose: 5,000 unit Hydralazine HCl (Apresoline -) 25 mg NGT TID [facility] Last Admin: 02/20/17 06:20 Dose: 25 mg Levothyroxine Sodium (Synthroid -) 100 mcg NGT DAILY@0700 [facility] Last Admin: 02/20/17 06:33 Dose: 100 mcg Mirtazapine (Remeron -) 7.5 mg NGT DAILY [facility] Last Admin: 02/20/17 10:36 Dose: 7.5 mg Pantoprazole Sodium (Protonix Packets For Oral Suspension -) 40 mg NGT DAILY [facility] Last Admin: 02/20/17 10:35 Dose: 40 mg Senna (Senna Oral Solution -) 8.8 mg PO HS [facility] Last Admin: 02/19/17 21:35 Dose: 8.8 mg Sodium Chloride (Sodium Chloride Tablet -) 1 gm NGT DAILY [facility] Last Admin: 02/20/17 10:35 Dose: 1 gm Valacyclovir HCl (Valtrex -) 1,000 mg NGT TID [facility] Last Admin: 02/20/17 06:20 Dose: 1,000 mg - Objective Vital Signs: Vital Signs Temperature 98.8 F 02/20/17 09:00 Pulse Rate 84 02/20/17 10:00 Respiratory Rate 11 L 02/20/17 10:39 Blood Pressure 111/50 02/20/17 09:00 O2 Sat by Pulse Oximetry (%) 96 02/20/17 10:39 Cardiovascular: Yes: S1, S2 Respiratory: Yes: Diminished, Mechanically Ventilated Gastrointestinal: Yes: Normal Bowel Sounds, Soft Labs: CBC, BMP 02/20/17 07:25 02/20/17 07:25 INR, PTT INR 1.26 (0.82-1.09) H 02/20/17 07:25 Assessment/Plan - Problems (1) Lethargy Assessment/Plan: possible related to infection- possible aspiration on iv abx sodium level improved ng tube for feeding- no plans for G tube as of now had extensive discussion with louie and mother Code(s): R53.83 - OTHER FATIGUE (2) Hyponatremia Assessment/Plan: salt tablet Code(s): E87.1 - HYPO-OSMOLALITY AND HYPONATREMIA (3) Hx of multiple sclerosis Assessment/Plan: with functional quadriplegia frequent turn and position dvt ppx neurology on board Code(s): Z86.69 - PERSONAL HISTORY OF DIS OF THE NERVOUS SYS AND SENSE ORGANS (4) Hypothyroid Assessment/Plan: on synthroid Code(s): E03.9 - HYPOTHYROIDISM, UNSPECIFIED (5) Neurogenic bladder Assessment/Plan: chronic indwelling catheter changed every 2 weeks no need for abx for now Code(s): N31.9 - NEUROMUSCULAR DYSFUNCTION OF BLADDER, UNSPECIFIED (6) Chronic respiratory failure Assessment/Plan: on vent support possible pausy tenzin valve today Code(s): J96.10 - CHRONIC RESPIRATORY FAILURE, UNSP W HYPOXIA OR HYPERCAPNIA (7) HTN (hypertension) Assessment/Plan: [facility] BP is high 167/68 on hydralazine Code(s): I10 - ESSENTIAL (PRIMARY) HYPERTENSION (8) Anemia Assessment/Plan: one unit prbc h/h LOW Code(s): D64.9 - ANEMIA, UNSPECIFIED Qualifiers: Other causes of anemia: other cause, not classified (9) Herpes zoster Assessment/Plan: on valtrex Code(s): B02.9 - ZOSTER WITHOUT COMPLICATIONS
--- NOTE | 2017-02-20 14:09 | PN ---
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 (short form) - Note 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: PULMONARY TEMP LAST PM/MVV/TRACH/NGT RESTING ON VENT PALE/ANICTERIC GOOD B/L AIR ENTRY S1S2 SOFT HEEL OFFLOADERS LABS/MEDS/NOTES/IMAGING REVIEWED HGB 8.4 BUN18 PNA/FEVERS MS VENT DEP HTN NGT IVF ABS MVV SAME SETTINGS DVT PROPHYLAXSIS PMV WHEN STABLE REMAINS OFF ABS PER TAPAN TINEO MD
[2017-02-20 14:53] LABS: FERRITIN 1126.299 ng/ml (6.9-282.5)
[2017-02-20] MEDS: SENNOSIDES 8.8 MG/5 ML BULK BOTTLE PO SCH (22:02)
[2017-02-21] MEDS: hydrALAZINE HCL 25 MG TABLET (FP) NGT SCH ×3 (06:20→21:41)
[2017-02-21] MEDS: carBAMazepine 200 MG TABLET NGT SCH ×3 (06:20→21:42)
[2017-02-21] MEDS: valACYclovir HCL 500 MG TABLET (FP) NGT SCH ×3 (06:20→21:42)
[2017-02-21] MEDS: LEVOTHYROXINE NA 100 MCG TABLET (FP) NGT SCH (06:20)
[2017-02-21 06:40] LABS: SERUM IRON 18 ug/dL (27-159); TOTAL IRON BINDING CAPACITY 120 ug/dL (250-450); UIBC 102 ug/dL (131-425)
[2017-02-21 08:08] LABS: BASO % 0.4 % (0-2.0); MCH 31.2 pg (25.7-33.7); MCHC 33.7 g/dl (32.0-36.0); MEAN CELL VOLUME 92.7 fl (80-96); MEAN PLT VOLUME 7.3 fl (7.5-11.1); NEUT % 76.7 % (42.8-82.8); PLATELET COUNT 427 K/MM3 (134-434); RDW 17.9 % (11.6-15.6); WHITE BLOOD COUNT 10.3 K/mm3 (4.0-10.0)
[2017-02-21 08:33] LABS: ALBUMIN 1.9 g/dl (3.4-5.0); ANION GAP 7 (8-16); CALCIUM 8.6 mg/dL (8.5-10.1); CO2 30 mmol/L (21-32); GLUCOSE,RANDOM 154 mg/dL (74-106)
[2017-02-21 08:36] LABS: ALK PHOS 124 U/L (45-117); BILIRUBIN,TOTAL 0.4 mg/dL (0.2-1.0); CREATININE 0.5 mg/dL (0.55-1.02); SGOT/AST 15 U/L (15-37); SGPT/ALT 21 U/L (12-78); TOT PROT 6.3 g/dl (6.4-8.2)
[2017-02-21] MEDS: amLODIPine BESYLATE 5 MG TABLET (FP) NGT SCH (10:04)
[2017-02-21] MEDS: SODIUM CHLORIDE 1 GM TABLET NGT SCH (10:04)
[2017-02-21] MEDS: PANTOPRAZOLE SOD 40 MG SUSPENSION PACKET NGT SCH (10:05)
[2017-02-21] MEDS: AMINO ACIDS/PROTEIN HYDROLYS 30 ML LIQUID.PKT PO SCH ×2 (10:05→17:34)
[2017-02-21] MEDS: HEPARIN NA (PORCINE) 5,000 UNITS/ML 1ML VIAL SQ SCH ×2 (10:05→21:41)
[2017-02-21] MEDS: MIRTAZAPINE 15 MG TABLET (FP) NGT SCH (10:05)
--- NOTE | 2017-02-21 12:30 | PN ---
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 (short form) - Note 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: PULMONARY INTERMITTENT TEMPS LOW GRADE CONTINUE /MVV/A/C 14/450/40/5/TRACH/NGT RESTING ON VENT/FAMILY PRESENT PALE/ANICTERIC GOOD B/L AIR ENTRY S1S2 SOFT HEEL OFFLOADERS LABS/MEDS/NOTES/IMAGING REVIEWED HGB 9.8 WBC10.3 BUN24/CR.5 ALB 1.9 PNA/FEVERS MS VENT DEP HTN NGT IVF DVT PROPHYLAXSIS MVV SAME SETTINGS DVT PROPHYLAXSIS PMV WHEN STABLE REMAINS OFF ABS PER TAPAN TINEO MD
--- NOTE | 2017-02-21 13:32 | PN ---
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, Physician - Current Medication List Current Medications: Active Medications Acetaminophen (Tylenol Oral Solution -) 650 mg NGT Q6H PRN PRN Reason: FEVER OR PAIN Last Admin: 02/20/17 15:46 Dose: 650 mg Amino Acids (Prosource No Carb Liquid Pkt) 30 ml PO BID@0800,1730 [facility] Last Admin: 02/21/17 10:05 Dose: 30 ml Amlodipine Besylate (Norvasc -) 5 mg NGT DAILY [facility] Last Admin: 02/21/17 10:04 Dose: 5 mg Bacitracin (Bacitracin -) 1 applic TP BID [facility] Carbamazepine (Tegretol -) 200 mg NGT TID [facility] Last Admin: 02/21/17 06:20 Dose: 200 mg Heparin Sodium (Porcine) (Heparin -) 5,000 unit SQ BID [facility] Last Admin: 02/21/17 10:05 Dose: 5,000 unit Hydralazine HCl (Apresoline -) 25 mg NGT TID [facility] Last Admin: 02/21/17 06:20 Dose: 25 mg Levothyroxine Sodium (Synthroid -) 100 mcg NGT DAILY@0700 [facility] Last Admin: 02/21/17 06:20 Dose: 100 mcg Mirtazapine (Remeron -) 7.5 mg NGT DAILY [facility] Last Admin: 02/21/17 10:05 Dose: 7.5 mg Pantoprazole Sodium (Protonix Packets For Oral Suspension -) 40 mg NGT DAILY [facility] Last Admin: 02/21/17 10:05 Dose: 40 mg Senna (Senna Oral Solution -) 8.8 mg PO HS [facility] Last Admin: 02/20/17 22:02 Dose: 8.8 mg Sodium Chloride (Sodium Chloride Tablet -) 1 gm NGT DAILY [facility] Last Admin: 02/21/17 10:04 Dose: 1 gm Valacyclovir HCl (Valtrex -) 1,000 mg NGT TID [facility] Last Admin: 02/21/17 06:20 Dose: 1,000 mg - Objective Vital Signs: Vital Signs Temperature 99.0 F 02/21/17 09:53 Pulse Rate 75 02/21/17 09:53 Respiratory Rate 13 02/21/17 10:41 Blood Pressure 101/57 02/21/17 09:53 O2 Sat by Pulse Oximetry (%) 97 12/17/17 10:41 Cardiovascular: Yes: Regular Rate and Rhythm Respiratory: Yes: Mechanically Ventilated, Rhonchi Gastrointestinal: Yes: Normal Bowel Sounds, Soft Labs: CBC, BMP 02/21/17 07:45 02/21/17 07:45 INR, PTT INR 1.26 (0.82-1.09) H 02/20/17 07:25 Assessment/Plan - Problems (1) Lethargy Assessment/Plan: possible related to infection- possible aspiration on iv abx sodium level improved ng tube for feeding- no plans for G tube as of now had extensive discussion with louie and mother Code(s): R53.83 - OTHER FATIGUE (2) Hyponatremia Assessment/Plan: salt tablet Code(s): E87.1 - HYPO-OSMOLALITY AND HYPONATREMIA (3) Hx of multiple sclerosis Assessment/Plan: with functional quadriplegia frequent turn and position dvt ppx neurology on board Code(s): Z86.69 - PERSONAL HISTORY OF DIS OF THE NERVOUS SYS AND SENSE ORGANS (4) Hypothyroid Assessment/Plan: on synthroid Code(s): E03.9 - HYPOTHYROIDISM, UNSPECIFIED (5) Neurogenic bladder Assessment/Plan: chronic indwelling catheter changed every 2 weeks no need for abx for now Code(s): N31.9 - NEUROMUSCULAR DYSFUNCTION OF BLADDER, UNSPECIFIED (6) Chronic respiratory failure Assessment/Plan: on vent support possible pausy tenzin valve today Code(s): J96.10 - CHRONIC RESPIRATORY FAILURE, UNSP W HYPOXIA OR HYPERCAPNIA (7) HTN (hypertension) Assessment/Plan: [facility] BP is high 167/68 on hydralazine Code(s): I10 - ESSENTIAL (PRIMARY) HYPERTENSION (8) Anemia Assessment/Plan: S/P prbc h/h IMPROVED--- Code(s): D64.9 - ANEMIA, UNSPECIFIED Qualifiers: Other causes of anemia: other cause, not classified (9) Herpes zoster Assessment/Plan: on valtrex Code(s): B02.9 - ZOSTER WITHOUT COMPLICATIONS
[2017-02-21] MEDS ORDERED: PT OWN MED DRAWER 7, Y5N ONE ×2 (13:56→14:00)
[2017-02-21] MEDS: BACITRACIN 15 GM TUBE TOPICAL OINTMENT TP SCH (21:41)
[2017-02-21] MEDS: SENNOSIDES 8.8 MG/5 ML BULK BOTTLE PO SCH (21:42)
[2017-02-22] MEDS: hydrALAZINE HCL 25 MG TABLET (FP) NGT SCH ×3 (06:06→22:12)
[2017-02-22] MEDS: valACYclovir HCL 500 MG TABLET (FP) NGT SCH ×3 (06:06→22:13)
[2017-02-22] MEDS: LEVOTHYROXINE NA 100 MCG TABLET (FP) NGT SCH (06:06)
[2017-02-22] MEDS: carBAMazepine 200 MG TABLET NGT SCH ×3 (06:06→22:13)
[2017-02-22] MEDS ORDERED: PT OWN MED DRAWER 7, Y5N ONE ×2 (06:30→22:10)
[2017-02-22 07:42] LABS: BASO % 0.4 % (0-2.0); EOS % 2.1 % (0-4.5); MCH 31.8 pg (25.7-33.7); MCHC 33.8 g/dl (32.0-36.0); MEAN CELL VOLUME 94.1 fl (80-96); MEAN PLT VOLUME 7.2 fl (7.5-11.1); NEUT % 76.1 % (42.8-82.8); PLATELET COUNT 448 K/MM3 (134-434); RDW 17.4 % (11.6-15.6)
[2017-02-22 08:17] LABS: ALBUMIN 1.9 g/dl (3.4-5.0); ANION GAP 7 (8-16); BILIRUBIN,TOTAL 0.3 mg/dL (0.2-1.0); CALCIUM 8.9 mg/dL (8.5-10.1); CO2 31 mmol/L (21-32); CREATININE 0.5 mg/dL (0.55-1.02); GLUCOSE,RANDOM 110 mg/dL (74-106); SGOT/AST 20 U/L (15-37); SGPT/ALT 25 U/L (12-78); TOT PROT 6.5 g/dl (6.4-8.2)
[2017-02-22 08:18] LABS: ALK PHOS 131 U/L (45-117)
[2017-02-22] MEDS: AMINO ACIDS/PROTEIN HYDROLYS 30 ML LIQUID.PKT PO SCH ×2 (08:18→17:58)
--- NOTE | 2017-02-22 08:50 | PN ---
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, Physician - Current Medication List Current Medications: Active Medications Acetaminophen (Tylenol Oral Solution -) 650 mg NGT Q6H PRN PRN Reason: FEVER OR PAIN Last Admin: 02/20/17 15:46 Dose: 650 mg Amino Acids (Prosource No Carb Liquid Pkt) 30 ml PO BID@0800,1730 [facility] Last Admin: 02/22/17 08:18 Dose: 30 ml Amlodipine Besylate (Norvasc -) 5 mg NGT DAILY [facility] Last Admin: 02/21/17 10:04 Dose: 5 mg Bacitracin (Bacitracin -) 1 applic TP BID [facility] Last Admin: 02/21/17 21:41 Dose: 1 applic Carbamazepine (Tegretol -) 200 mg NGT TID [facility] Last Admin: 02/22/17 06:06 Dose: 200 mg Heparin Sodium (Porcine) (Heparin -) 5,000 unit SQ BID [facility] Last Admin: 02/21/17 21:41 Dose: 5,000 unit Hydralazine HCl (Apresoline -) 25 mg NGT TID [facility] Last Admin: 02/22/17 06:06 Dose: 25 mg Levothyroxine Sodium (Synthroid -) 100 mcg NGT DAILY@0700 [facility] Last Admin: 02/22/17 06:06 Dose: 100 mcg Mirtazapine (Remeron -) 7.5 mg NGT DAILY [facility] Last Admin: 02/21/17 10:05 Dose: 7.5 mg Pantoprazole Sodium (Protonix Packets For Oral Suspension -) 40 mg NGT DAILY [facility] Last Admin: 02/21/17 10:05 Dose: 40 mg Senna (Senna Oral Solution -) 8.8 mg PO HS [facility] Last Admin: 02/21/17 21:42 Dose: Not Given Sodium Chloride (Sodium Chloride Tablet -) 1 gm NGT DAILY [facility] Last Admin: 02/21/17 10:04 Dose: 1 gm Valacyclovir HCl (Valtrex -) 1,000 mg NGT TID [facility] Last Admin: 02/22/17 06:06 Dose: 1,000 mg - Objective Vital Signs: Vital Signs Temperature 98.5 F 02/22/17 06:00 Pulse Rate 93 H 02/22/17 06:00 Respiratory Rate 18 02/22/17 06:20 Blood Pressure 130/69 02/22/17 06:00 O2 Sat by Pulse Oximetry (%) 98 02/21/17 21:00 Cardiovascular: Yes: Regular Rate and Rhythm Respiratory: Yes: Mechanically Ventilated, Rhonchi Gastrointestinal: Yes: Normal Bowel Sounds, Soft. No: Tenderness Labs: CBC, BMP 02/22/17 07:15 02/22/17 07:15 INR, PTT INR 1.26 (0.82-1.09) H 02/20/17 07:25 Assessment/Plan - Problems (1) Lethargy Assessment/Plan: RESOLVED possible related to infection- possible aspiration on iv abx sodium level improved ng tube for feeding- no plans for G tube as of now had extensive discussion with louie and mother Code(s): R53.83 - OTHER FATIGUE (2) Hyponatremia Assessment/Plan: salt tablet Code(s): E87.1 - HYPO-OSMOLALITY AND HYPONATREMIA (3) Hx of multiple sclerosis-- Assessment/Plan: with functional quadriplegia frequent turn and position dvt ppx neurology on board SWALLOW EVAL Code(s): Z86.69 - PERSONAL HISTORY OF DIS OF THE NERVOUS SYS AND SENSE ORGANS (4) Hypothyroid Assessment/Plan: on synthroid Code(s): E03.9 - HYPOTHYROIDISM, UNSPECIFIED (5) Neurogenic bladder Assessment/Plan: chronic indwelling catheter changed every 2 weeks no need for abx for now Code(s): N31.9 - NEUROMUSCULAR DYSFUNCTION OF BLADDER, UNSPECIFIED (6) Chronic respiratory failure Assessment/Plan: on vent support possible pausy tenzin valve today Code(s): J96.10 - CHRONIC RESPIRATORY FAILURE, UNSP W HYPOXIA OR HYPERCAPNIA (7) HTN (hypertension) Assessment/Plan: -norvasc Vital Signs Period Temp Pulse Resp BP Sys/Morillo Pulse Ox Last 24 Hr 98.5 F-99.7 F 75-100 13-19 101-150/57-79 97-98 -hydralazine Code(s): I10 - ESSENTIAL (PRIMARY) HYPERTENSION (8) Anemia Assessment/Plan: S/P prbc h/h IMPROVED--- Code(s): D64.9 - ANEMIA, UNSPECIFIED Qualifiers: Other causes of anemia: other cause, not classified (9) Herpes zoster Assessment/Plan: on valtrex Code(s): B02.9 - ZOSTER WITHOUT COMPLICATIONS
[2017-02-22] MEDS: SODIUM CHLORIDE 1 GM TABLET NGT SCH (09:19)
[2017-02-22] MEDS: PANTOPRAZOLE SOD 40 MG SUSPENSION PACKET NGT SCH (09:19)
[2017-02-22] MEDS: HEPARIN NA (PORCINE) 5,000 UNITS/ML 1ML VIAL SQ SCH ×2 (09:19→22:14)
[2017-02-22] MEDS: MIRTAZAPINE 15 MG TABLET (FP) NGT SCH (09:20)
[2017-02-22] MEDS: amLODIPine BESYLATE 5 MG TABLET (FP) NGT SCH (09:20)
[2017-02-22] MEDS: BACITRACIN 15 GM TUBE TOPICAL OINTMENT TP SCH ×2 (10:08→22:13)
--- NOTE | 2017-02-22 10:28 | PN ---
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 (short form) - Note 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: patient seen and examined. Much more responsive than previous. On the ventilator. Tracheostomy intact, balloon inflated. NG tube intact with feeding infusing. Definite improvement may indicate that her worsened dysphagia and mental state may have been a temporary circumstance. In that case, it may be possible to retry oral feeds when she has made more progress and is off the ventilator. However, if feeds are seen coming out of the tracheostomy again then should return to NPO status. In that case may need to review the need for PEG.
--- NOTE | 2017-02-22 11:24 | PN ---
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, BUSINESS SUPPORT - Note 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: Selected Entries 02/21/17 02/21/17 02/21/17 01:55 05:00 09:53 Supper Temperature 98.3 F 98.3 F 99.0 F 02/21/17 02/21/17 02/21/17 13:00 17:00 18:21 Supper NPO Temperature 98.9 F 99.0 F 02/22/17 02/22/17 02:00 06:00 Supper Temperature 99.7 F H 98.5 F Laboratory Tests 02/20/17 02/21/17 02/22/17 07:25 07:45 07:15 WBC 10.6 H 10.3 H 9.0 Pt looking better. No longer speaking over the cuff. Following directive. Much more responsive and appropriate. PMV used with RT, with vocal wetness noted with audible secretions in posterior oropharynx. Suctioned with improved clearance of secretions and improved voicing. However, hyper sensitive gag, limiting ability to easily clear secretions. Swallow reassessment with immediate vocal wetness again. Pt is unable to clear her own secretions, with very weak, ineffective cough. IMP: Improving, however, with persistent aspiration suspected presently on saliva/secretion/applesauce trial at this time. REC: defer PMV use/ continue NPO/NGT feedings/ may need to readdress PEG, to be used when swallowing is not function, pt is lethargic, to supplement nutrition needs/hydration. I am still hopeful that swallowing will continue to improve to function, maybe with pureed diet, but not yet. Suction PRN. Maintain symmetric position in bed, chin flexed to allow pt to swallow her secretions.
--- NOTE | 2017-02-22 13:24 | PN ---
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, Physician History of Present Illness: PULMONARY ALERT,ON VENT SUPPORT,AC MODE - Current Medication List Current Medications: Active Medications Acetaminophen (Tylenol Oral Solution -) 650 mg NGT Q6H PRN PRN Reason: FEVER OR PAIN Last Admin: 02/20/17 15:46 Dose: 650 mg Amino Acids (Prosource No Carb Liquid Pkt) 30 ml PO BID@0800,1730 [facility] Last Admin: 02/22/17 08:18 Dose: 30 ml Amlodipine Besylate (Norvasc -) 5 mg NGT DAILY [facility] Last Admin: 02/22/17 09:20 Dose: 5 mg Bacitracin (Bacitracin -) 1 applic TP BID [facility] Last Admin: 02/21/17 21:41 Dose: 1 applic Carbamazepine (Tegretol -) 200 mg NGT TID [facility] Last Admin: 02/22/17 06:06 Dose: 200 mg Heparin Sodium (Porcine) (Heparin -) 5,000 unit SQ BID [facility] Last Admin: 02/22/17 09:19 Dose: 5,000 unit Hydralazine HCl (Apresoline -) 25 mg NGT TID [facility] Last Admin: 02/22/17 06:06 Dose: 25 mg Levothyroxine Sodium (Synthroid -) 100 mcg NGT DAILY@0700 [facility] Last Admin: 02/22/17 06:06 Dose: 100 mcg Mirtazapine (Remeron -) 7.5 mg NGT DAILY [facility] Last Admin: 02/22/17 09:20 Dose: 7.5 mg Pantoprazole Sodium (Protonix Packets For Oral Suspension -) 40 mg NGT DAILY [facility] Last Admin: 02/22/17 09:19 Dose: 40 mg Senna (Senna Oral Solution -) 8.8 mg PO HS [facility] Last Admin: 02/21/17 21:42 Dose: Not Given Sodium Chloride (Sodium Chloride Tablet -) 1 gm NGT DAILY [facility] Last Admin: 02/22/17 09:19 Dose: 1 gm Valacyclovir HCl (Valtrex -) 1,000 mg NGT TID [facility] Last Admin: 02/22/17 06:06 Dose: 1,000 mg - Objective Vital Signs: Vital Signs Temperature 98.4 F 02/22/17 10:00 Pulse Rate 82 02/22/17 10:20 Respiratory Rate 16 02/22/17 10:20 Blood Pressure 115/63 02/22/17 10:00 O2 Sat by Pulse Oximetry (%) 98 02/22/17 10:20 Constitutional: Yes: Well Nourished, Calm Eyes: Yes: Occular Prosthesis HENT: Yes: WNL Neck: Yes: Supple (TRACH) Cardiovascular: Yes: Regular Rate and Rhythm, S1, S2 Respiratory: Yes: Diminished Gastrointestinal: Yes: Normal Bowel Sounds, Soft Extremities: Yes: WNL Edema: No Labs: CBC, BMP 02/22/17 07:15 02/22/17 07:15 INR, PTT INR 1.26 (0.82-1.09) H 02/20/17 07:25 Problem List - Problems (1) Hyponatremia Code(s): E87.1 - HYPO-OSMOLALITY AND HYPONATREMIA (2) Acute on chronic respiratory failure with hypoxia and hypercapnia Code(s): J96.21 - ACUTE AND CHRONIC RESPIRATORY FAILURE WITH HYPOXIA; J96.22 - ACUTE AND CHRONIC RESPIRATORY FAILURE WITH HYPERCAPNIA (3) Adrenal insufficiency Code(s): E27.40 - UNSPECIFIED ADRENOCORTICAL INSUFFICIENCY (4) Chronic respiratory failure Code(s): J96.10 - CHRONIC RESPIRATORY FAILURE, UNSP W HYPOXIA OR HYPERCAPNIA (5) Decubital ulcer Code(s): L89.90 - PRESSURE ULCER OF UNSPECIFIED SITE, UNSPECIFIED STAGE (6) Functional quadriplegia Code(s): R53.2 - FUNCTIONAL QUADRIPLEGIA (7) HTN (hypertension) Code(s): I10 - ESSENTIAL (PRIMARY) HYPERTENSION (8) Multiple sclerosis Code(s): G35 - MULTIPLE SCLEROSIS (9) Tracheostomy care Code(s): Z43.0 - ENCOUNTER FOR ATTENTION TO TRACHEOSTOMY (10) Tracheostomy dependence Code(s): Z93.0 - TRACHEOSTOMY STATUS Assessment/Plan CHRONIC RESPIRATORY FAILURE ON VENT SUPPORT FEVERS ADVANCED MS HTN IVF DVT PROPHYLAXSIS MVV SAME SETTINGS DVT PROPHYLAXSIS PMV WHEN STABLE REMAINS OFF ABS PER ID DR ELDER
[2017-02-22] MEDS: clonazePAM 0.5 MG TABLET NGT SCH (22:12)
[2017-02-22] MEDS: SENNOSIDES 8.8 MG/5 ML BULK BOTTLE PO SCH (22:12)
[2017-02-23] MEDS: LEVOTHYROXINE NA 100 MCG TABLET (FP) NGT SCH (06:38)
[2017-02-23] MEDS: hydrALAZINE HCL 25 MG TABLET (FP) NGT SCH ×3 (06:38→22:16)
[2017-02-23] MEDS: carBAMazepine 200 MG TABLET NGT SCH ×3 (06:39→22:18)
[2017-02-23] MEDS: valACYclovir HCL 500 MG TABLET (FP) NGT SCH ×3 (06:39→22:18)
[2017-02-23] MEDS ORDERED: PT OWN MED DRAWER 7, Y5N ONE (06:54)
[2017-02-23] MEDS: AMINO ACIDS/PROTEIN HYDROLYS 30 ML LIQUID.PKT PO SCH ×2 (08:56→17:37)
[2017-02-23] MEDS: SODIUM CHLORIDE 1 GM TABLET NGT SCH (09:26)
[2017-02-23] MEDS: MIRTAZAPINE 15 MG TABLET (FP) NGT SCH (09:27)
[2017-02-23] MEDS: amLODIPine BESYLATE 5 MG TABLET (FP) NGT SCH (09:27)
[2017-02-23] MEDS: PANTOPRAZOLE SOD 40 MG SUSPENSION PACKET NGT SCH (09:27)
[2017-02-23] MEDS: HEPARIN NA (PORCINE) 5,000 UNITS/ML 1ML VIAL SQ SCH ×2 (09:27→22:17)
[2017-02-23] MEDS: BACITRACIN 15 GM TUBE TOPICAL OINTMENT TP SCH ×2 (09:28→22:26)
--- NOTE | 2017-02-23 10:13 | PN ---
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, Physician Chief Complaint: leukocytosis, hyponatremia, weakness History of Present Illness: -looks a lot better, awake, responsive -NAD, on vent -NGT in place, failed PO trial yesterday, states the apple sauce was really dry When speaking to mother- doesn't want PEG -Finished IV abx - Current Medication List Current Medications: Active Medications Acetaminophen (Tylenol Oral Solution -) 650 mg NGT Q6H PRN PRN Reason: FEVER OR PAIN Last Admin: 02/20/17 15:46 Dose: 650 mg Amino Acids (Prosource No Carb Liquid Pkt) 30 ml PO BID@0800,1730 [facility] Last Admin: 02/23/17 08:56 Dose: 30 ml Amlodipine Besylate (Norvasc -) 5 mg NGT DAILY [facility] Last Admin: 02/23/17 09:27 Dose: 5 mg Bacitracin (Bacitracin -) 1 applic TP BID [facility] Last Admin: 02/23/17 09:28 Dose: 1 applic Carbamazepine (Tegretol -) 200 mg NGT TID [facility] Last Admin: 02/23/17 06:39 Dose: 200 mg Clonazepam (Klonopin -) 0.5 mg NGT HS [facility] Last Admin: 02/22/17 22:12 Dose: 0.5 mg Heparin Sodium (Porcine) (Heparin -) 5,000 unit SQ BID [facility] Last Admin: 02/23/17 09:27 Dose: 5,000 unit Hydralazine HCl (Apresoline -) 25 mg NGT TID [facility] Last Admin: 02/23/17 06:38 Dose: 25 mg Levothyroxine Sodium (Synthroid -) 100 mcg NGT DAILY@0700 [facility] Last Admin: 02/23/17 06:38 Dose: 100 mcg Mirtazapine (Remeron -) 7.5 mg NGT DAILY [facility] Last Admin: 02/23/17 09:27 Dose: 7.5 mg Pantoprazole Sodium (Protonix Packets For Oral Suspension -) 40 mg NGT DAILY [facility] Last Admin: 02/23/17 09:27 Dose: 40 mg Senna (Senna Oral Solution -) 8.8 mg PO HS [facility] Last Admin: 02/22/17 22:12 Dose: 8.8 mg Sodium Chloride (Sodium Chloride Tablet -) 1 gm NGT DAILY [facility] Last Admin: 02/23/17 09:26 Dose: 1 gm Valacyclovir HCl (Valtrex -) 1,000 mg NGT TID [facility] Last Admin: 02/23/17 06:39 Dose: 1,000 mg - Objective Vital Signs: Vital Signs Temperature 98.9 F 02/23/17 05:45 Pulse Rate 90 02/23/17 05:45 Respiratory Rate 17 02/23/17 06:24 Blood Pressure 113/60 02/23/17 05:45 O2 Sat by Pulse Oximetry (%) 96 02/22/17 21:00 Constitutional: Yes: Well Nourished, No Distress, Calm Cardiovascular: Yes: Regular Rate and Rhythm Respiratory: Yes: Regular, Mechanically Ventilated Musculoskeletal: Yes: WNL Extremities: Yes: WNL Edema: No Peripheral Pulses WNL: Yes Neurological: Yes: Alert, Oriented Psychiatric: Yes: Alert, Oriented Labs: CBC, BMP 02/22/17 07:15 02/22/17 07:15 INR, PTT INR 1.26 (0.82-1.09) H 02/20/17 07:25 Problem List - Problems (1) Hyponatremia Assessment/Plan: -resolved Code(s): E87.1 - HYPO-OSMOLALITY AND HYPONATREMIA (2) Lethargy Assessment/Plan: -improved Code(s): R53.83 - OTHER FATIGUE (3) Acute on chronic respiratory failure with hypoxia and hypercapnia Assessment/Plan: -on mechanical vent around the clock for now -was on T/C for 10 minutes yesterday, tolerating SIMV today -seen by pulmonary Code(s): J96.21 - ACUTE AND CHRONIC RESPIRATORY FAILURE WITH HYPOXIA; J96.22 - ACUTE AND CHRONIC RESPIRATORY FAILURE WITH HYPERCAPNIA (4) Anemia Assessment/Plan: -acute on chronic -improved after 2 units PRBC -stool ob negative -labs reviewed -hematology consult appreciated Code(s): D64.9 - ANEMIA, UNSPECIFIED Qualifiers: Other causes of anemia: other cause, not classified (5) Multiple sclerosis Assessment/Plan: -Chronic -seen by Neurology Dr Conroy Code(s): G35 - MULTIPLE SCLEROSIS (6) Herpes zoster Assessment/Plan: -Left upper back -Valacyclovir 1g TID for 7 days Code(s): B02.9 - ZOSTER WITHOUT COMPLICATIONS (7) Dysphagia Assessment/Plan: -gradually improving -repeat PO trial today Code(s): R13.10 - DYSPHAGIA, UNSPECIFIED Assessment/Plan see problem list
--- NOTE | 2017-02-23 12:25 | PN ---
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, PHYSICIAN ANESTHESIOLOGIST - Note 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: Pt is oriented, verbal, speech more precise, following commands, Improving now tolerating weaning ventilator mode. PMV with RT this am and again now for 230 min with me and RT, mother and TELECOMMUNICATION OPERATOR present. Voice is much more euphonic. No vocal wetness noted before or after apple sauce trials,. Selected Entries 02/22/17 02/22/17 02/22/17 02:00 06:00 10:00 Supper Temperature 99.7 F H 98.5 F 98.4 F 02/22/17 02/22/17 02/23/17 19:00 22:00 05:45 Supper NPO Temperature 98.2 F 98.1 F 98.9 F 02/23/17 09:00 Supper Temperature 98.8 F Laboratory Tests 02/21/17 02/22/17 07:45 07:15 WBC 10.3 H 9.0 Audible air leak around stoma.Pt's mother reports trach not functioning as well since changed? Dr. Cormier consulted. Followed by Dr. Landon. Suggest: Suction well before placement of PMV, especially oropharyngeally. PMV of increasing time as tolerated with constant oxymeter monitoring. Pt needs to be seated fully upright and chin to neutral or flexed position. Remove NGT Trial Puree and honey thick on a tsp. Magic cup. 2 swallows per bite. Ask pt to phonate "ahhhh" and listen for clear vocal quality/no wetness Monitor tolerance/pulm status.
[2017-02-23 14:18] LABS: APTT 30.1 sec (22.9-30.2)
--- NOTE | 2017-02-23 14:43 | PN ---
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 (short form) - Note 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: Awake on AC Mode of vent. Used PMV for about 10 minutes. Reports feeling better today. Intake & Output 02/20/17 02/21/17 02/22/17 02/23/17 23:59 23:59 23:59 23:59 Intake Total 2650 2070 2260 990 Output Total 600 2500 1300 1400 Balance 2050 -430 960 -410 Weight 157 lb Last Vital Signs Temp Pulse Resp BP Pulse Ox 97.9 F 88 26 H 139/65 97 02/23/17 14:19 02/23/17 14:19 02/23/17 14:20 02/23/17 14:19 02/23/17 10:15 Active Medications Acetaminophen (Tylenol Oral Solution -) 650 mg NGT Q6H PRN PRN Reason: FEVER OR PAIN Last Admin: 02/20/17 15:46 Dose: 650 mg Amino Acids (Prosource No Carb Liquid Pkt) 30 ml PO BID@0800,1730 [facility] Last Admin: 02/23/17 08:56 Dose: 30 ml Amlodipine Besylate (Norvasc -) 5 mg NGT DAILY [facility] Last Admin: 02/23/17 09:27 Dose: 5 mg Bacitracin (Bacitracin -) 1 applic TP BID [facility] Last Admin: 02/23/17 09:28 Dose: 1 applic Carbamazepine (Tegretol -) 200 mg NGT TID [facility] Last Admin: 02/23/17 06:39 Dose: 200 mg Clonazepam (Klonopin -) 0.5 mg NGT HS [facility] Last Admin: 02/22/17 22:12 Dose: 0.5 mg Heparin Sodium (Porcine) (Heparin -) 5,000 unit SQ BID [facility] Last Admin: 02/23/17 09:27 Dose: 5,000 unit Hydralazine HCl (Apresoline -) 25 mg NGT TID [facility] Last Admin: 02/23/17 06:38 Dose: 25 mg Levothyroxine Sodium (Synthroid -) 100 mcg NGT DAILY@0700 [facility] Last Admin: 02/23/17 06:38 Dose: 100 mcg Mirtazapine (Remeron -) 7.5 mg NGT DAILY [facility] Last Admin: 02/23/17 09:27 Dose: 7.5 mg Pantoprazole Sodium (Protonix Packets For Oral Suspension -) 40 mg NGT DAILY [facility] Last Admin: 02/23/17 09:27 Dose: 40 mg Senna (Senna Oral Solution -) 8.8 mg PO HS [facility] Last Admin: 02/22/17 22:12 Dose: 8.8 mg Sodium Chloride (Sodium Chloride Tablet -) 1 gm NGT DAILY [facility] Last Admin: 02/23/17 09:26 Dose: 1 gm Valacyclovir HCl (Valtrex -) 1,000 mg NGT TID [facility] Last Admin: 02/23/17 06:39 Dose: 1,000 mg Constitutional: Yes: Awake, NAD Eyes: Yes: Occular Prosthesis HENT: Yes: WNL Neck: Yes: Supple (TRACH) Cardiovascular: Yes: Regular Rate and Rhythm, S1, S2 Respiratory: Yes: Diminished Gastrointestinal: Yes: Normal Bowel Sounds, Soft Extremities: Yes: WNL Edema: No Labs: Laboratory Results - last 24 hr 02/20/17 02/22/17 02/23/17 07:25 16:45 06:47 Saline-Adjusted PTT 37.5 PTT Patient/Cntrl Mix TNP PTT Normal Plasma Pre 25.7 POC Glucometer 133 104 Problem List - Problems (1) Hyponatremia Code(s): E87.1 - HYPO-OSMOLALITY AND HYPONATREMIA (2) Acute on chronic respiratory failure with hypoxia and hypercapnia Code(s): J96.21 - ACUTE AND CHRONIC RESPIRATORY FAILURE WITH HYPOXIA; J96.22 - ACUTE AND CHRONIC RESPIRATORY FAILURE WITH HYPERCAPNIA (3) Adrenal insufficiency Code(s): E27.40 - UNSPECIFIED ADRENOCORTICAL INSUFFICIENCY (4) Chronic respiratory failure Code(s): J96.10 - CHRONIC RESPIRATORY FAILURE, UNSP W HYPOXIA OR HYPERCAPNIA (5) Decubital ulcer Code(s): L89.90 - PRESSURE ULCER OF UNSPECIFIED SITE, UNSPECIFIED STAGE (6) Functional quadriplegia Code(s): R53.2 - FUNCTIONAL QUADRIPLEGIA (7) HTN (hypertension) Code(s): I10 - ESSENTIAL (PRIMARY) HYPERTENSION (8) Multiple sclerosis Code(s): G35 - MULTIPLE SCLEROSIS (9) Tracheostomy care Code(s): Z43.0 - ENCOUNTER FOR ATTENTION TO TRACHEOSTOMY (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
--- NOTE | 2017-02-23 19:20 | CON.ENT ---
Consult Consult Specialty:: ENT Referred by:: Dr. Lorenzo Reason for Consultation:: tracheotomy status - History of Present Illness Chief Complaint: tracheotomy status History of Present Illness: 52 yo F with extensive medical history, multiple sclerosis with quadriplegia, s/ p tracheotomy 2013 for airway secretion management recently ill, poor swallowing, food noted coming out around trach, became poorly responsive on ventilator recent improvement, had trial off vent, swallowing sl improving with pureed diet (potatoes with batista, applesauce). PEG has been considered and discussed with patient and her family, on hold for now, NGT feeding required for nutrition now. has had evaluation by Ana M Magana, speech pathologist also evaluated by Dr. Charles Tompkins, who performed patient's tracheotomy in 2013 recently changed, has a 6 [address] cuffed tube in place - History Source History Provided By: Patient, Family Member, Medical Record Limitations to Obtaining History: Other (tracheotomy, on ventilator) - Past Medical History SPOT WASHER: Yes: Multiple Sclerosis (quadraplegia), Other (legally blind, trigeminal neuralgia -> baclofen pump) Cardio/Vascular: Yes: HTN, Hyperlipdemia Pulmonary: Yes: Pneumonia, Previously Intubated, Other Gastrointestinal: Yes: Constipation (chronic) Renal/: Yes: Neurogenic Bladder ( neurogenic bladder, chronic perera catheter) ...LMP: 06/07/12 Infectious Disease: Yes: Other (pneumonia, uti treated by urologist) Musculoskeletal: Yes: Other Dermatology: Yes: Other (chronic decubitus followed by wound care) Additional Medical History: trigeminal neuralgia, baclofen pump. chronic decubitus followed by wound care. neurogenic bladder, chronic perera catheter - Alcohol/Substance Use Hx Alcohol Use: No History of Substance Use: reports: None - Smoking History Smoking history: Never smoked Have you smoked in the past 12 months: No Aproximately how many cigarettes per day: 0 - Social History Usual Living Arrangement: With Parent ADL: Support Services History of Recent Travel: No Home Medications - Allergies Allergies/Adverse Reactions: Allergies Allergy/AdvReac Type Severity Reaction Status Date / Time chloral hydrate Allergy Intermediate Rash Verified 12/11/16 12:36 [Chloral Hydrate] azathioprine [From Imuran] Allergy Rash Verified 12/11/16 12:36 azathioprine sodium Allergy Rash Verified 12/11/16 12:36 [From Imuran] adhesive tape AdvReac Severe sensitivity Verified 12/11/16 12:36 to glue adhesive AdvReac Unknown Verified 12/11/16 12:36 - Home Medications Home Medications: Ambulatory Orders Clonazepam [Klonopin] 0.5 mg PO DAILY 05/08/15 Amlodipine Besylate [Norvasc -] 10 mg PO HS 02/06/16 Baclofen 0 mg IVSS ASDIR 02/06/16 Mirtazapine 7.5 mg PO DAILY 02/06/16 Pantoprazole Sodium [Protonix] 40 mg PO DAILY 02/06/16 Ferrous Sulfate [Feosol] 325 mg PO BIDWM #30 bottle MDD 2 05/21/16 Levothyroxine [Synthroid -] 100 mcg PO DAILY@0700 #30 tablet 06/24/16 Sodium Chloride Tablet - 1 gm PO DAILY #30 tablet 06/24/16 Hydralazine HCl [Apresoline -] 50 mg PO TID 02/11/17 Carbamazepine [Tegretol -] 100 mg PO TID 02/12/17 Family Disease History - Family Disease History Family Disease History: Other: Mother Physical Exam-ENT Vital Signs: Vital Signs Temperature 97.9 F 02/23/17 14:19 Pulse Rate 88 02/23/17 14:19 Respiratory Rate 20 02/23/17 19:00 Blood Pressure 139/65 02/23/17 14:19 O2 Sat by Pulse Oximetry (%) 97 02/23/17 10:15 Constitutional: Yes: No Distress, Calm Head: Yes: WNL Face: Yes: WNL Eyes: Yes: WNL Nose: Yes: Other (NGT left secure, no bleeding) Outer Ear: Yes: WNL Neck: Yes: Other (6 Portex tracheotomy tube in place, secure, stoma clean, sl clear mucus, no signs of infection or food drainage around tube) Respiratory: Yes: Mechanically Ventilated Extremities: Yes: WNL Neurological: Yes: Alert Imaging - Results Chest X-ray: Report Reviewed, Image Reviewed (trach tube in place, NGT in place , bibasilar infiltrates and atelectasis) Problem List - Problems (1) Dysphagia Assessment/Plan: extensive evaluation by Ana M Magana, improving with diet modification no longer noting food around trach Recommend: continue modified diet NGT feeding to maintain caloric and nutritional intake until oral intake satisfactory for needs. Code(s): R13.10 - DYSPHAGIA, UNSPECIFIED Qualifiers: Dysphagia type: pharyngoesophageal phase Qualified Code(s): R13.14 - Dysphagia, pharyngoesophageal phase (2) Tracheostomy care Assessment/Plan: pt is s/p tracheotomy 2013 presently has 6 Portex cuffed tracheotomy tube, which is in place, secure, and functioning well on ventilator, but strength improving, tolerated a short period of weaning today Recommend: continue tracheotomy care ventilator as needed as per Pulmonary Medicine suctioning prn Thank you for consultation, Yariel Cormier MD FACS Code(s): Z43.0 - ENCOUNTER FOR ATTENTION TO TRACHEOSTOMY
[2017-02-23] MEDS: clonazePAM 0.5 MG TABLET NGT SCH (22:17)
[2017-02-23] MEDS: SENNOSIDES 8.8 MG/5 ML BULK BOTTLE PO SCH (22:18)
[2017-02-24] MEDS: carBAMazepine 200 MG TABLET NGT SCH ×3 (06:43→21:43)
[2017-02-24] MEDS: valACYclovir HCL 500 MG TABLET (FP) NGT SCH ×2 (06:43→14:00)
[2017-02-24] MEDS: hydrALAZINE HCL 25 MG TABLET (FP) NGT SCH ×3 (06:44→21:43)
[2017-02-24] MEDS: LEVOTHYROXINE NA 100 MCG TABLET (FP) NGT SCH (06:44)
[2017-02-24] MEDS: AMINO ACIDS/PROTEIN HYDROLYS 30 ML LIQUID.PKT PO SCH ×2 (08:30→17:21)
--- NOTE | 2017-02-24 10:17 | PN ---
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, Physician Chief Complaint: leukocytosis, hyponatremia, weakness History of Present Illness: -looks a lot better, awake, responsive, feels better -NAD, on vent -NGT still in place, tolerating PO intake, When speaking to mother- doesn't want PEG -Finished IV abx -RD to recalculate tube feed, wean aggressively -Trial of trach collar 50% as long as patient tolerates- aggressive weaning in preparation to be discharged home -mother Erinn at bedside, discussed plan with her - Current Medication List Current Medications: Active Medications Acetaminophen (Tylenol Oral Solution -) 650 mg NGT Q6H PRN PRN Reason: FEVER OR PAIN Last Admin: 02/20/17 15:46 Dose: 650 mg Amino Acids (Prosource No Carb Liquid Pkt) 30 ml PO BID@0800,1730 [facility] Last Admin: 02/23/17 17:37 Dose: 30 ml Amlodipine Besylate (Norvasc -) 5 mg NGT DAILY [facility] Last Admin: 02/23/17 09:27 Dose: 5 mg Bacitracin (Bacitracin -) 1 applic TP BID [facility] Last Admin: 02/23/17 22:26 Dose: 1 applic Carbamazepine (Tegretol -) 200 mg NGT TID [facility] Last Admin: 02/24/17 06:43 Dose: 200 mg Clonazepam (Klonopin -) 0.5 mg NGT HS [facility] Last Admin: 02/23/17 22:17 Dose: 0.5 mg Heparin Sodium (Porcine) (Heparin -) 5,000 unit SQ BID [facility] Last Admin: 02/23/17 22:17 Dose: 5,000 unit Hydralazine HCl (Apresoline -) 25 mg NGT TID [facility] Last Admin: 02/24/17 06:44 Dose: 25 mg Levothyroxine Sodium (Synthroid -) 100 mcg NGT DAILY@0700 [facility] Last Admin: 02/24/17 06:44 Dose: 100 mcg Mirtazapine (Remeron -) 7.5 mg NGT DAILY [facility] Last Admin: 02/23/17 09:27 Dose: 7.5 mg Pantoprazole Sodium (Protonix Packets For Oral Suspension -) 40 mg NGT DAILY [facility] Last Admin: 02/23/17 09:27 Dose: 40 mg Senna (Senna Oral Solution -) 8.8 mg PO HS [facility] Last Admin: 02/23/17 22:18 Dose: Not Given Sodium Chloride (Sodium Chloride Tablet -) 1 gm NGT DAILY [facility] Last Admin: 02/23/17 09:26 Dose: 1 gm Valacyclovir HCl (Valtrex -) 1,000 mg NGT TID [facility] Last Admin: 02/24/17 06:43 Dose: 1,000 mg - Objective Vital Signs: Vital Signs Temperature 98.6 F 02/24/17 06:00 Pulse Rate 100 H 02/24/17 09:46 Respiratory Rate 19 02/24/17 09:44 Blood Pressure 139/80 02/24/17 06:00 O2 Sat by Pulse Oximetry (%) 98 02/24/17 09:46 Constitutional: Yes: Well Nourished, No Distress, Calm Cardiovascular: Yes: Regular Rate and Rhythm Respiratory: Yes: Regular, Mechanically Ventilated Edema: No Peripheral Pulses WNL: Yes Neurological: Yes: Alert, Oriented Psychiatric: Yes: Alert, Oriented Labs: CBC, BMP 02/22/17 07:15 02/22/17 07:15 INR, PTT INR 1.26 (0.82-1.09) H 02/20/17 07:25 Problem List - Problems (1) Hyponatremia Assessment/Plan: -resolved Code(s): E87.1 - HYPO-OSMOLALITY AND HYPONATREMIA (2) Lethargy Assessment/Plan: -improved Code(s): R53.83 - OTHER FATIGUE (3) Acute on chronic respiratory failure with hypoxia and hypercapnia Assessment/Plan: -aggressive weaning -trach collar, vent at bedtime, which is her baseline -seen by pulmonary Code(s): J96.21 - ACUTE AND CHRONIC RESPIRATORY FAILURE WITH HYPOXIA; J96.22 - ACUTE AND CHRONIC RESPIRATORY FAILURE WITH HYPERCAPNIA (4) Anemia Assessment/Plan: -acute on chronic -improved after 2 units PRBC -stool ob negative -labs reviewed -hematology consult appreciated Code(s): D64.9 - ANEMIA, UNSPECIFIED Qualifiers: Other causes of anemia: other cause, not classified (5) Multiple sclerosis Assessment/Plan: -Chronic -seen by Neurology Dr Conroy Code(s): G35 - MULTIPLE SCLEROSIS (6) Herpes zoster Assessment/Plan: -Left upper back -Valacyclovir 1g TID for 7 days Code(s): B02.9 - ZOSTER WITHOUT COMPLICATIONS (7) Dysphagia Assessment/Plan: -gradually improving -tolerating PO intake well -pull back on tube feeds as pt progresses forward with PO intake, maintain aspiration precautions, if aspiration suspected, hold PO intake Code(s): R13.10 - DYSPHAGIA, UNSPECIFIED Qualifiers: Dysphagia type: pharyngoesophageal phase Qualified Code(s): R13.14 - Dysphagia, pharyngoesophageal phase Assessment/Plan see problem list -RD to recalculate tube feed, wean aggressively -Trial of trach collar 50% as long as patient tolerates- aggressive weaning in preparation to be discharged home -mother Erinn at bedside, discussed plan with her
[2017-02-24] MEDS: MIRTAZAPINE 15 MG TABLET (FP) NGT SCH (11:04)
[2017-02-24] MEDS: PANTOPRAZOLE SOD 40 MG SUSPENSION PACKET NGT SCH (11:05)
[2017-02-24] MEDS: SODIUM CHLORIDE 1 GM TABLET NGT SCH (11:05)
[2017-02-24] MEDS: amLODIPine BESYLATE 5 MG TABLET (FP) NGT SCH (11:05)
[2017-02-24] MEDS: BACITRACIN 15 GM TUBE TOPICAL OINTMENT TP SCH ×2 (11:05→21:43)
[2017-02-24] MEDS: HEPARIN NA (PORCINE) 5,000 UNITS/ML 1ML VIAL SQ SCH ×2 (11:05→21:43)
--- NOTE | 2017-02-24 13:13 | PN ---
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, 911 DISPATCHER - Note Progress Note: Agressive weaning from ventilator. Pt now on trach collar. Using PMV during meal time. O2 sat 96%. Voice is euphonic. Educated private METALLURGICAL ENGINEER regarding importance of symmetry of body positioning and head to neutral or flexed, never extend. Case reviewed with RD. For possible nocturnal NGT feeding until PO intake increases sufficiently. Continue to Suction well before placement of PMV, especially oropharyngeally. PMV of increasing time as tolerated with constant oxymeter monitoring. Pt needs to be seated fully upright and chin to neutral or flexed position. Remove NGT per PNP. Trial Puree with extra gravy and honey thick on a tsp. Magic cup. Medication crushed and given in applesauce. 2 swallows per bite. Ask pt to phonate "ahhhh" and listen for clear vocal quality/no wetness Monitor tolerance/pulm status.
--- NOTE | 2017-02-24 13:23 | PN ---
Progress Note, Physician History of Present Illness: PULMONARY ALERT,NAD ON TRACH COLLAR,TOLERATION WELL -RESP DISTRESS - Current Medication List Current Medications: Active Medications Acetaminophen (Tylenol Oral Solution -) 650 mg NGT Q6H PRN PRN Reason: FEVER OR PAIN Last Admin: 02/20/17 15:46 Dose: 650 mg Amino Acids (Prosource No Carb Liquid Pkt) 30 ml PO BID@0800,1730 [facility] Last Admin: 02/24/17 08:30 Dose: 30 ml Amlodipine Besylate (Norvasc -) 5 mg NGT DAILY [facility] Last Admin: 02/24/17 11:05 Dose: 5 mg Bacitracin (Bacitracin -) 1 applic TP BID [facility] Last Admin: 02/24/17 11:05 Dose: 1 applic Carbamazepine (Tegretol -) 200 mg NGT TID [facility] Last Admin: 02/24/17 06:43 Dose: 200 mg Clonazepam (Klonopin -) 0.5 mg NGT HS [facility] Last Admin: 02/23/17 22:17 Dose: 0.5 mg Heparin Sodium (Porcine) (Heparin -) 5,000 unit SQ BID [facility] Last Admin: 02/24/17 11:05 Dose: 5,000 unit Hydralazine HCl (Apresoline -) 25 mg NGT TID [facility] Last Admin: 02/24/17 06:44 Dose: 25 mg Levothyroxine Sodium (Synthroid -) 100 mcg NGT DAILY@0700 [facility] Last Admin: 02/24/17 06:44 Dose: 100 mcg Mirtazapine (Remeron -) 7.5 mg NGT DAILY [facility] Last Admin: 02/24/17 11:04 Dose: 7.5 mg Pantoprazole Sodium (Protonix Packets For Oral Suspension -) 40 mg NGT DAILY [facility] Last Admin: 02/24/17 11:05 Dose: 40 mg Senna (Senna Oral Solution -) 8.8 mg PO HS [facility] Last Admin: 02/23/17 22:18 Dose: Not Given Sodium Chloride (Sodium Chloride Tablet -) 1 gm NGT DAILY [facility] Last Admin: 02/24/17 11:05 Dose: 1 gm Valacyclovir HCl (Valtrex -) 1,000 mg NGT TID [facility] Last Admin: 02/24/17 06:43 Dose: 1,000 mg - Objective Vital Signs: Vital Signs Temperature 97.8 F 02/24/17 10:00 Pulse Rate 91 H 02/24/17 12:49 Respiratory Rate 16 02/24/17 10:00 Blood Pressure 130/80 02/24/17 10:00 O2 Sat by Pulse Oximetry (%) 97 02/24/17 12:50 Constitutional: Yes: Well Nourished, Calm Eyes: Yes: WNL HENT: Yes: WNL Neck: Yes: Tenderness (TRACH) Cardiovascular: Yes: Regular Rate and Rhythm, S1, S2 Respiratory: Yes: Rhonchi (FEW RHONCHI) Gastrointestinal: Yes: Normal Bowel Sounds, Soft Extremities: Yes: WNL Edema: No Labs: CBC, BMP Problem List - Problems (1) Hyponatremia Code(s): E87.1 - HYPO-OSMOLALITY AND HYPONATREMIA (2) Acute on chronic respiratory failure with hypoxia and hypercapnia Code(s): J96.21 - ACUTE AND CHRONIC RESPIRATORY FAILURE WITH HYPOXIA; J96.22 - ACUTE AND CHRONIC RESPIRATORY FAILURE WITH HYPERCAPNIA (3) Adrenal insufficiency Code(s): E27.40 - UNSPECIFIED ADRENOCORTICAL INSUFFICIENCY (4) Chronic respiratory failure Code(s): J96.10 - CHRONIC RESPIRATORY FAILURE, UNSP W HYPOXIA OR HYPERCAPNIA (5) Decubital ulcer Code(s): L89.90 - PRESSURE ULCER OF UNSPECIFIED SITE, UNSPECIFIED STAGE (6) Functional quadriplegia Code(s): R53.2 - FUNCTIONAL QUADRIPLEGIA (7) HTN (hypertension) Code(s): I10 - ESSENTIAL (PRIMARY) HYPERTENSION (8) Multiple sclerosis Code(s): G35 - MULTIPLE SCLEROSIS (9) Tracheostomy care Code(s): Z43.0 - ENCOUNTER FOR ATTENTION TO TRACHEOSTOMY (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
[2017-02-24] MEDS ORDERED: PT OWN MED DRAWER 7, Y5N ONE (15:37)
[2017-02-24] MEDS: clonazePAM 0.5 MG TABLET NGT SCH (21:43)
[2017-02-24] MEDS: SENNOSIDES 8.8 MG/5 ML BULK BOTTLE PO SCH (21:43)
[2017-02-25] MEDS: carBAMazepine 200 MG TABLET NGT SCH ×3 (06:07→22:42)
[2017-02-25] MEDS: hydrALAZINE HCL 25 MG TABLET (FP) NGT SCH ×3 (06:07→22:43)
[2017-02-25] MEDS: LEVOTHYROXINE NA 100 MCG TABLET (FP) NGT SCH (06:07)
[2017-02-25] MEDS: AMINO ACIDS/PROTEIN HYDROLYS 30 ML LIQUID.PKT PO SCH ×2 (08:00→18:04)
--- NOTE | 2017-02-25 10:06 | PN ---
Progress Note, Physician Chief Complaint: leukocytosis, hyponatremia, weakness History of Present Illness: -looks a lot better, awake, responsive, feels better -NAD, on vent -NGT came out yesterday, tolerating pO intake at her baseline, no food around the trach -On trach collar 50% most of the day, and vent at night -if cleared by pulmonary, patient okay to go home -mother Erinn at bedside, discussed plan with her - Current Medication List Current Medications: Active Medications Acetaminophen (Tylenol Oral Solution -) 650 mg NGT Q6H PRN PRN Reason: FEVER OR PAIN Last Admin: 02/20/17 15:46 Dose: 650 mg Albuterol/Ipratropium (Duoneb -) 1 amp NEB Q6H PRN PRN Reason: SHORTNESS OF BREATH Amino Acids (Prosource No Carb Liquid Pkt) 30 ml PO BID@0800,1730 [facility] Last Admin: 02/24/17 17:21 Dose: 30 ml Amlodipine Besylate (Norvasc -) 5 mg NGT DAILY [facility] Last Admin: 02/24/17 11:05 Dose: 5 mg Bacitracin (Bacitracin -) 1 applic TP BID [facility] Last Admin: 02/24/17 21:43 Dose: 1 applic Carbamazepine (Tegretol -) 200 mg NGT TID [facility] Last Admin: 02/25/17 06:07 Dose: 200 mg Clonazepam (Klonopin -) 0.5 mg NGT HS [facility] Last Admin: 02/24/17 21:43 Dose: 0.5 mg Heparin Sodium (Porcine) (Heparin -) 5,000 unit SQ BID [facility] Last Admin: 02/24/17 21:43 Dose: 5,000 unit Hydralazine HCl (Apresoline -) 25 mg NGT TID [facility] Last Admin: 02/25/17 06:07 Dose: 25 mg Levothyroxine Sodium (Synthroid -) 100 mcg NGT DAILY@0700 [facility] Last Admin: 02/25/17 06:07 Dose: 100 mcg Mirtazapine (Remeron -) 7.5 mg NGT DAILY [facility] Last Admin: 02/24/17 11:04 Dose: 7.5 mg Pantoprazole Sodium (Protonix Packets For Oral Suspension -) 40 mg NGT DAILY [facility] Last Admin: 02/24/17 11:05 Dose: 40 mg Senna (Senna Oral Solution -) 8.8 mg PO HS [facility] Last Admin: 02/24/17 21:43 Dose: Not Given Sodium Chloride (Sodium Chloride Tablet -) 1 gm NGT DAILY [facility] Last Admin: 02/24/17 11:05 Dose: 1 gm - Objective Vital Signs: Vital Signs Temperature 99.3 F 02/25/17 06:00 Pulse Rate 81 02/25/17 08:16 Respiratory Rate 19 02/25/17 06:30 Blood Pressure 116/64 02/25/17 06:00 O2 Sat by Pulse Oximetry (%) 95 02/25/17 08:16 Constitutional: Yes: Well Nourished, No Distress, Calm Cardiovascular: Yes: Regular Rate and Rhythm Respiratory: Yes: Regular, Mechanically Ventilated Gastrointestinal: Yes: Normal Bowel Sounds Musculoskeletal: Yes: WNL Extremities: Yes: WNL Edema: No Peripheral Pulses WNL: Yes Neurological: Yes: Alert, Oriented Psychiatric: Yes: Alert, Oriented Labs: CBC, BMP 02/22/17 07:15 02/22/17 07:15 INR, PTT INR 1.26 (0.82-1.09) H 02/20/17 07:25 Problem List - Problems (1) Hyponatremia Assessment/Plan: -resolved Code(s): E87.1 - HYPO-OSMOLALITY AND HYPONATREMIA (2) Lethargy Assessment/Plan: -improved Code(s): R53.83 - OTHER FATIGUE (3) Acute on chronic respiratory failure with hypoxia and hypercapnia Assessment/Plan: -Tolerating trach collar all day, vent at bedtime, which is her baseline -seen by pulmonary Code(s): J96.21 - ACUTE AND CHRONIC RESPIRATORY FAILURE WITH HYPOXIA; J96.22 - ACUTE AND CHRONIC RESPIRATORY FAILURE WITH HYPERCAPNIA (4) Anemia Assessment/Plan: -at her baseline now -hematology consult appreciated Code(s): D64.9 - ANEMIA, UNSPECIFIED Qualifiers: Other causes of anemia: other cause, not classified (5) Multiple sclerosis Assessment/Plan: -Chronic -seen by Neurology Dr Conroy Code(s): G35 - MULTIPLE SCLEROSIS (6) Herpes zoster Assessment/Plan: -resolved Code(s): B02.9 - ZOSTER WITHOUT COMPLICATIONS (7) Dysphagia Assessment/Plan: -gradually improving -tolerating PO intake well Code(s): R13.10 - DYSPHAGIA, UNSPECIFIED Qualifiers: Dysphagia type: pharyngoesophageal phase Qualified Code(s): R13.14 - Dysphagia, pharyngoesophageal phase Assessment/Plan see problem list Patient at her baseline, cleared by Pulmonary to be discharged.
--- NOTE | 2017-02-25 10:11 | DS ---
Physical Examination Vital Signs: Vital Signs Temperature 99.3 F 02/25/17 06:00 Pulse Rate 81 02/25/17 08:16 Respiratory Rate 19 02/25/17 06:30 Blood Pressure 116/64 02/25/17 06:00 O2 Sat by Pulse Oximetry (%) 95 02/25/17 08:16 Constitutional: Yes: Well Nourished, No Distress, Calm Cardiovascular: Yes: Regular Rate and Rhythm Respiratory: Yes: Regular, Mechanically Ventilated Gastrointestinal: Yes: Normal Bowel Sounds Musculoskeletal: Yes: WNL Extremities: Yes: WNL Edema: No Peripheral Pulses WNL: Yes Neurological: Yes: Alert, Oriented Psychiatric: Yes: Alert, Oriented Labs: CBC, BMP 02/22/17 07:15 02/22/17 07:15 Discharge Summary Reason For Visit: HYPERCAPNIA; HYPONATREMIA Current Active Problems Dysphagia (Acute) Herpes zoster (Acute) Hyponatremia (Acute) Lethargy (Acute) Hospital Course: 52 y/o F with PMH of of MS (not currently on steroid therapy, currently trached because of secretion clearance issues and apparent respiratory muscle weakness and with indwelling perera), HTN, sleep disorders, and hypothyroidism presenting with increasing lethargy and somnolence since Wednesday. She has history of UTIs in the past and never becomes symptomatic. Last UTI was 2 months prior. Of note , she also has three decubitus wounds in her back that have been recently evaluated by the wound care staff and do not seem to be infected according to the care staff and family at the bedside. Denies current fevers, chills, nausea , vomiting, diarrhea, constipation, chest pain or other current symptoms. in ER found to be hyponatremia 122 and hypothermic admitted to icu for further managment got NS and sodium improved to 130 and mental status also improved on vent support right now AC mode Upon admission she was evaluated by ID, Pulmonary, ENT, Speech/swallow she was treated with IV abx for P. aeruginosa in sputum and urine and antiviral for shingles rash She will go home on the pre-hospital medication and medical regimen Condition: Stable - Instructions Referrals: Anne Lopez MD [Primary Care Provider] - Disposition: [facility]/HOME HEALTH CARE - Home Medications Comprehensive Discharge Medication List: Ambulatory Orders Clonazepam [Klonopin] 0.5 mg PO DAILY 05/08/15 Amlodipine Besylate [Norvasc -] 10 mg PO HS 02/06/16 Baclofen 0 mg IVSS ASDIR 02/06/16 Mirtazapine 7.5 mg PO DAILY 02/06/16 Pantoprazole Sodium [Protonix] 40 mg PO DAILY 02/06/16 Ferrous Sulfate [Feosol] 325 mg PO BIDWM #30 bottle MDD 2 05/21/16 Levothyroxine [Synthroid -] 100 mcg PO DAILY@0700 #30 tablet 06/24/16 Sodium Chloride Tablet - 1 gm PO DAILY #30 tablet 06/24/16 Hydralazine HCl [Apresoline -] 50 mg PO TID 02/11/17 Carbamazepine [Tegretol -] 100 mg PO TID 02/12/17
[2017-02-25] MEDS ORDERED: PT OWN MED DRAWER 7, Y5N ONE ×2 (11:04→18:02)
[2017-02-25] MEDS: amLODIPine BESYLATE 5 MG TABLET (FP) NGT SCH (11:08)
[2017-02-25] MEDS: PANTOPRAZOLE SOD 40 MG SUSPENSION PACKET NGT SCH (11:08)
[2017-02-25] MEDS: MIRTAZAPINE 15 MG TABLET (FP) NGT SCH (11:08)
[2017-02-25] MEDS: HEPARIN NA (PORCINE) 5,000 UNITS/ML 1ML VIAL SQ SCH ×2 (11:08→22:43)
[2017-02-25] MEDS: SODIUM CHLORIDE 1 GM TABLET NGT SCH (11:09)
[2017-02-25] MEDS: BACITRACIN 15 GM TUBE TOPICAL OINTMENT TP SCH ×2 (11:09→21:35)
[2017-02-25] MEDS: ALBUTEROL SO4 2.5/IPRATROPIUM 0.5 INH SOL 3 ML VIAL.NEB. NEB PRN ×2 (11:20→23:15)
--- NOTE | 2017-02-25 12:05 | PN ---
Progress Note (short form) - Note Progress Note: Overall better. Tolerates T collar. Intake & Output 02/22/17 02/23/17 02/24/17 02/25/17 23:59 23:59 23:59 23:59 Intake Total 2260 2110 2240 200 Output Total 1300 2300 1100 200 Balance 960 -190 1140 0 Last Vital Signs Temp Pulse Resp BP Pulse Ox 99.3 F 81 19 116/64 95 02/25/17 06:00 02/25/17 08:16 02/25/17 10:00 02/25/17 06:00 02/25/17 11:18 Active Medications Acetaminophen (Tylenol Oral Solution -) 650 mg NGT Q6H PRN PRN Reason: FEVER OR PAIN Last Admin: 02/20/17 15:46 Dose: 650 mg Albuterol/Ipratropium (Duoneb -) 1 amp NEB QIDR PRN PRN Reason: SHORTNESS OF BREATH Last Admin: 02/25/17 11:20 Dose: 1 amp Amino Acids (Prosource No Carb Liquid Pkt) 30 ml PO BID@0800,1730 [facility] Last Admin: 02/25/17 08:00 Dose: 30 ml Amlodipine Besylate (Norvasc -) 5 mg NGT DAILY [facility] Last Admin: 02/25/17 11:08 Dose: 5 mg Bacitracin (Bacitracin -) 1 applic TP BID [facility] Last Admin: 02/25/17 11:09 Dose: 1 applic Carbamazepine (Tegretol -) 200 mg NGT TID [facility] Last Admin: 02/25/17 06:07 Dose: 200 mg Clonazepam (Klonopin -) 0.5 mg NGT HS [facility] Last Admin: 02/24/17 21:43 Dose: 0.5 mg Heparin Sodium (Porcine) (Heparin -) 5,000 unit SQ BID [facility] Last Admin: 02/25/17 11:08 Dose: 5,000 unit Hydralazine HCl (Apresoline -) 25 mg NGT TID [facility] Last Admin: 02/25/17 06:07 Dose: 25 mg Levothyroxine Sodium (Synthroid -) 100 mcg NGT DAILY@0700 [facility] Last Admin: 02/25/17 06:07 Dose: 100 mcg Mirtazapine (Remeron -) 7.5 mg NGT DAILY [facility] Last Admin: 02/25/17 11:08 Dose: 7.5 mg Pantoprazole Sodium (Protonix Packets For Oral Suspension -) 40 mg NGT DAILY [facility] Last Admin: 02/25/17 11:08 Dose: 40 mg Senna (Senna Oral Solution -) 8.8 mg PO HS [facility] Last Admin: 02/24/17 21:43 Dose: Not Given Sodium Chloride (Sodium Chloride Tablet -) 1 gm NGT DAILY [facility] Last Admin: 02/25/17 11:09 Dose: 1 gm Constitutional: Yes: Awake, NAD Eyes: Yes: Occular Prosthesis HENT: Yes: WNL Neck: Yes: Supple (TRACH) Cardiovascular: Yes: Regular Rate and Rhythm, S1, S2 Respiratory: Yes: Diminished Gastrointestinal: Yes: Normal Bowel Sounds, Soft Extremities: Yes: WNL Edema: No Labs: Laboratory Results - last 24 hr 02/24/17 02/25/17 17:20 06:14 POC Glucometer 133 94 Problem List - Problems (1) Hyponatremia Code(s): E87.1 - HYPO-OSMOLALITY AND HYPONATREMIA (2) Acute on chronic respiratory failure with hypoxia and hypercapnia Code(s): J96.21 - ACUTE AND CHRONIC RESPIRATORY FAILURE WITH HYPOXIA; J96.22 - ACUTE AND CHRONIC RESPIRATORY FAILURE WITH HYPERCAPNIA (3) Adrenal insufficiency Code(s): E27.40 - UNSPECIFIED ADRENOCORTICAL INSUFFICIENCY (4) Chronic respiratory failure Code(s): J96.10 - CHRONIC RESPIRATORY FAILURE, UNSP W HYPOXIA OR HYPERCAPNIA (5) Decubital ulcer Code(s): L89.90 - PRESSURE ULCER OF UNSPECIFIED SITE, UNSPECIFIED STAGE (6) Functional quadriplegia Code(s): R53.2 - FUNCTIONAL QUADRIPLEGIA (7) HTN (hypertension) Code(s): I10 - ESSENTIAL (PRIMARY) HYPERTENSION (8) Multiple sclerosis Code(s): G35 - MULTIPLE SCLEROSIS (9) Tracheostomy care Code(s): Z43.0 - ENCOUNTER FOR ATTENTION TO TRACHEOSTOMY (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
--- NOTE | 2017-02-25 13:14 | PN ---
Progress Note, FAMILY LIVING EDUCATOR - Note Progress Note: Selected Entries 02/24/17 02/24/17 02/24/17 06:00 10:00 15:25 Breakfast Lunch Supper Temperature 98.6 F 97.8 F 97.8 F 02/24/17 02/24/17 02/24/17 15:27 19:01 22:00 Breakfast 25% Lunch 25% Supper 50% Temperature 97.9 F 98.2 F 02/25/17 02/25/17 06:00 11:26 Breakfast 75% Lunch Supper Temperature 99.3 F Laboratory Tests 02/22/17 07:15 WBC 9.0 Pending d/c. Pt has be tolerating trach collar and po diet. Defer diet upgrade based on recent mbs. Suggest swallowing tx at home via homecare,
--- NOTE | 2017-02-25 13:51 | PN ---
Progress Note (short form) - Note Progress Note: NEUROLOGY FOLLOW-UP: Events reviewed. Patient examined wsith her mother at the bedside. Much more awake, alert. Clear she does not want PEG Claims breathing is easier and swallowing, better. With talking (fenestrated trache) today + facial myokymia. Shoulder shrug and minimal finger movements Areflexic. IMP: Advanced MS. SUGGEST: Ocrelizumab only approved Rx for secondarily progressive MS Geetha is interested in proceeding with authorization and infusion. Thank you very much, Rom Conroy MD
[2017-02-25] MEDS: SENNOSIDES 8.8 MG/5 ML BULK BOTTLE PO SCH (22:42)
[2017-02-25] MEDS: ACETAMINOPHEN 650 MG/20.3 ML ORAL SOLUTION (CUPS) NGT PRN (22:43)
[2017-02-25] MEDS: clonazePAM 0.5 MG TABLET NGT SCH (22:43)
[2017-02-26] MEDS: hydrALAZINE HCL 25 MG TABLET (FP) NGT SCH (06:05)
[2017-02-26] MEDS: carBAMazepine 200 MG TABLET NGT SCH (06:06)
[2017-02-26] MEDS: LEVOTHYROXINE NA 100 MCG TABLET (FP) NGT SCH (06:43)
[2017-02-26] MEDS: MIRTAZAPINE 15 MG TABLET (FP) NGT SCH (09:10)
[2017-02-26] MEDS: PANTOPRAZOLE SOD 40 MG SUSPENSION PACKET NGT SCH (09:10)
[2017-02-26] MEDS: amLODIPine BESYLATE 5 MG TABLET (FP) NGT SCH (09:10)
[2017-02-26] MEDS: AMINO ACIDS/PROTEIN HYDROLYS 30 ML LIQUID.PKT PO SCH (09:11)
[2017-02-26] MEDS: HEPARIN NA (PORCINE) 5,000 UNITS/ML 1ML VIAL SQ SCH (09:11)
[2017-02-26] MEDS: SODIUM CHLORIDE 1 GM TABLET NGT SCH (09:11)
[2017-02-26] MEDS: BACITRACIN 15 GM TUBE TOPICAL OINTMENT TP SCH (09:25)
--- NOTE | 2017-02-26 09:53 | PN ---
Progress Note, Physician Chief Complaint: leukocytosis, hyponatremia, weakness History of Present Illness: -looks a lot better, awake, responsive, feels better, wants to go home -NAD, on vent -going home today -discussed plan with mother Erinn - Current Medication List Current Medications: Active Medications Acetaminophen (Tylenol Oral Solution -) 650 mg NGT Q6H PRN PRN Reason: FEVER OR PAIN Last Admin: 02/25/17 22:43 Dose: 650 mg Albuterol/Ipratropium (Duoneb -) 1 amp NEB QIDR PRN PRN Reason: SHORTNESS OF BREATH Last Admin: 02/25/17 23:15 Dose: 1 amp Amino Acids (Prosource No Carb Liquid Pkt) 30 ml PO BID@0800,1730 [facility] Last Admin: 02/26/17 09:11 Dose: 30 ml Amlodipine Besylate (Norvasc -) 5 mg NGT DAILY [facility] Last Admin: 02/26/17 09:10 Dose: 5 mg Bacitracin (Bacitracin -) 1 applic TP BID [facility] Last Admin: 02/26/17 09:25 Dose: 1 applic Carbamazepine (Tegretol -) 200 mg NGT TID [facility] Last Admin: 02/26/17 06:06 Dose: 200 mg Clonazepam (Klonopin -) 0.5 mg NGT HS [facility] Last Admin: 02/25/17 22:43 Dose: 0.5 mg Heparin Sodium (Porcine) (Heparin -) 5,000 unit SQ BID [facility] Last Admin: 02/26/17 09:11 Dose: 5,000 unit Hydralazine HCl (Apresoline -) 25 mg NGT TID [facility] Last Admin: 02/26/17 06:05 Dose: Not Given Levothyroxine Sodium (Synthroid -) 100 mcg NGT DAILY@0700 [facility] Last Admin: 02/26/17 06:43 Dose: 100 mcg Mirtazapine (Remeron -) 7.5 mg NGT DAILY [facility] Last Admin: 02/26/17 09:10 Dose: 7.5 mg Pantoprazole Sodium (Protonix Packets For Oral Suspension -) 40 mg NGT DAILY [facility] Last Admin: 02/26/17 09:10 Dose: 40 mg Senna (Senna Oral Solution -) 8.8 mg PO HS [facility] Last Admin: 12/21/17 22:42 Dose: Not Given Sodium Chloride (Sodium Chloride Tablet -) 1 gm NGT DAILY [facility] Last Admin: 02/26/17 09:11 Dose: 1 gm - Objective Vital Signs: Vital Signs Temperature 97.0 F L 02/26/17 06:00 Pulse Rate 72 02/26/17 06:00 Respiratory Rate 17 02/26/17 06:34 Blood Pressure 96/62 02/26/17 06:00 O2 Sat by Pulse Oximetry (%) 99 02/25/17 21:00 Constitutional: Yes: Well Nourished, No Distress, Calm Cardiovascular: Yes: Regular Rate and Rhythm Respiratory: Yes: Regular, Mechanically Ventilated Musculoskeletal: Yes: WNL Extremities: Yes: WNL Edema: No Peripheral Pulses WNL: Yes Neurological: Yes: Alert, Oriented Psychiatric: Yes: Alert, Oriented Labs: CBC, BMP 02/22/17 07:15 02/22/17 07:15 INR, PTT INR 1.26 (0.82-1.09) H 02/20/17 07:25 Problem List - Problems (1) Acute on chronic respiratory failure with hypoxia and hypercapnia Assessment/Plan: -Tolerating trach collar all day, vent at bedtime, which is her baseline -seen by pulmonary Code(s): J96.21 - ACUTE AND CHRONIC RESPIRATORY FAILURE WITH HYPOXIA; J96.22 - ACUTE AND CHRONIC RESPIRATORY FAILURE WITH HYPERCAPNIA (2) Anemia Assessment/Plan: -at her baseline now -hematology consult appreciated Code(s): D64.9 - ANEMIA, UNSPECIFIED Qualifiers: Other causes of anemia: other cause, not classified (3) Multiple sclerosis Assessment/Plan: -Chronic -seen by Neurology Dr Conroy Code(s): G35 - MULTIPLE SCLEROSIS (4) Dysphagia Assessment/Plan: -improved -mother gave thin liquids to patient today against recommendation by Speech and swallow -high encouraged to stick with thick liquids -tolerating PO intake well Code(s): R13.10 - DYSPHAGIA, UNSPECIFIED Qualifiers: Dysphagia type: pharyngoesophageal phase Qualified Code(s): R13.14 - Dysphagia, pharyngoesophageal phase Assessment/Plan see problem list
[2017-02-26 10:12] VITALS: BP 133/63; PULSE 96; TEMP 98.2
--- NOTE | 2017-02-26 10:50 | PN ---
Progress Note, PRIMARY EDUCATION PROFESSOR - Note Progress Note: Recommendations reviewed at length with pt and mother concerning holding PO feedings if SOB, weak, congested, until performance improves. Pt did not wear PMV for breakfast because she was not able this am. However, she was fed. Thin shiloh dmitriy with straw being given by pt's mother. Reviewed at length to please thicken liquids until she is stronger and function improves. Advised pt and staff to continue puree and honey thick for now, continued at home. Purchase Thick and Easy at [employer] for use with water and juice BUT NOT SUPPLEMENTS and order Simply Thick on line which can thicken supplements and soda with whisk. Pending d/c. Pt has be tolerating trach collar and po diet. Defer diet upgrade based on recent mbs. Suggest swallowing tx at home via homecare, Tongue resistence exercises, laryngeal elevation, BOT, airway protection exercises,Tina.
--- NOTE | 2017-02-26 10:53 | PN ---
Progress Note, DIVING INSTRUCTOR - Note Progress Note: Handout provided to pt: Continue puree and honey thick for now, continued at home. Purchase Thick and Easy at [facility] for use with water and juice BUT NOT SUPPLEMENTS TODAY order Simply Thick on line which can thicken all liquids including supplements and soda with whisk. Trial Puree with extra gravy and honey thick on a tsp. Magic cup. Medication crushed and given in applesauce. Chin tucked to neutral or flexed, never extended 2 swallows per bite. Ask pt to phonate "ahhhh" and listen for clear vocal quality/no wetness Monitor tolerance/pulm status. Suggest swallowing tx at home via homecare, Tongue resistence exercises, laryngeal elevation, BOT, airway protection exercises,Tnia.
== END 2017-02-26 11:55 | disposition home health service (06) | DRG 207 ==
LOC: JER 13:28 → JERBED 18:22 → JICU 20:24 → J5S 02-12 21:53
PROVIDERS: ADMIT Family Medicine; ATTEND Family Medicine
PROC: 5A1955Z Respiratory Ventilation, Greater than 96 Consecutive Hours (ICD-10-PCS; principal; 2017-02-11)
PROC: 0DH67UZ Insertion of Feeding Device into Stomach, Via Natural or Artificial Opening (ICD-10-PCS; 2017-02-16)
PROC: 3E0G76Z Introduction of Nutritional Substance into Upper GI, Via Natural or Artificial Opening (ICD-10-PCS; 2017-02-16)
PROC: 30233N1 Transfusion of Nonautologous Red Blood Cells into Peripheral Vein, Percutaneous Approach (ICD-10-PCS; 2017-02-16)
DX: J18.9 Pneumonia, unspecified organism (principal); R53.2 Functional quadriplegia; L89.324 Pressure ulcer of left buttock, stage 4; G92 Toxic encephalopathy; E87.1 Hypo-osmolality and hyponatremia; J96.12 Chronic respiratory failure with hypercapnia; Z99.11 Dependence on respirator [ventilator] status; B37.0 Candidal stomatitis; G95.89 Other specified diseases of spinal cord; E27.40 Unspecified adrenocortical insufficiency; I10 Essential (primary) hypertension; E03.9 Hypothyroidism, unspecified; Z87.440 Personal history of urinary (tract) infections; G35 Multiple sclerosis; Z93.0 Tracheostomy status; R68.0 Hypothermia, not associated with low environmental temperature; K21.9 Gastro-esophageal reflux disease without esophagitis; F32.9 Major depressive disorder, single episode, unspecified; Z74.01 Bed confinement status; G50.0 Trigeminal neuralgia; N31.9 Neuromuscular dysfunction of bladder, unspecified; D64.9 Anemia, unspecified; D69.6 Thrombocytopenia, unspecified; R13.10 Dysphagia, unspecified; B02.9 Zoster without complications
CPT/HCPCS: 36415; 36430; 36511; 36600; 71010-TC; 74230-TC; 80048; 80053; 81003; 81015; 82272; 82375; 82607; 82728; 82746; 82784; 82803; 83050; 83540; 83550; 83605; 83615; 83735; 83880; 84100; 84155; 84165; 84439; 84443; 85025; 85027; 85044; 85610; 85613; 85730; 85732; 86334; 86850; 86900; 86901; 86922; 87040; 87070; 87086; 87186; 87205; 92611-GN; 93005; 93010; 94002; 94640; 99282-25; A6196; G0463-25; G0480; J1644; P9038; P9058

== ENCOUNTER 2017-11-06 02:17 | Inpatient (IN) | payer OTHER ==
[2017-11-06] MEDS ORDERED: SODIUM CHLORIDE 1,000 ML IV STA ×2 (02:45→10:00)
--- NOTE | 2017-11-06 02:46 | PDOC ---
History of Present Illness - General Chief Complaint: Altered Mental Status Stated Complaint: AMS Time Seen by Provider: 11/06/17 02:31 History Source: Patient, Parent(s) Exam Limitations: No Limitations - History of Present Illness Initial Comments: 11/06/17 03:46 Patient is a 52-year-old female past medical history of MS (not currently on steroid treatment, trached, with indwelling Raza, quadriplegic) hypertension, sleep disorder, hypothyroidism who presents emergency department by ambulance for increased lethargy and altered mental status for one day. Mother is at bedside and states that she was trying to talk to the patient however she was unresponsive for about 1-2 minutes earlier this evening. Mother states that patient had not been feeling well yesterday and was not eating. Upon arrival in the emergency department patient is alert and oriented 3. She states that everything hurts. Denies fevers, chills, difficulty breathing, shortness of breath, chest pain, nausea, vomiting and diarrhea. Past History - Travel Traveled outside of the country in the last 30 days: No Close contact w/someone who was outside of country & ill: No - Past Medical History Allergies/Adverse Reactions: Allergies Allergy/AdvReac Type Severity Reaction Status Date / Time chloral hydrate Allergy Intermediate Rash Verified 11/06/17 02:41 [Chloral Hydrate] azathioprine [From Imuran] Allergy Rash Verified 11/06/17 02:41 azathioprine sodium Allergy Rash Verified 11/06/17 02:41 [From Imuran] adhesive tape AdvReac Severe sensitivity Verified 11/06/17 02:41 to glue adhesive AdvReac Unknown Verified 11/06/17 02:41 Home Medications: Ambulatory Orders Clonazepam [Klonopin] 0.5 mg PO DAILY 05/08/15 Baclofen 0 mg IVSS ASDIR 02/06/16 Mirtazapine 7.5 mg PO DAILY 02/06/16 Pantoprazole Sodium [Protonix] 40 mg PO DAILY 02/06/16 Ferrous Sulfate [Feosol] 325 mg PO BIDWM #30 bottle MDD 2 05/21/16 Levothyroxine [Synthroid -] 100 mcg PO DAILY@0700 #30 tablet 06/24/16 Sodium Chloride Tablet - 1 gm PO DAILY #30 tablet 06/24/16 hydrALAZINE HCL [Apresoline -] 50 mg PO TID 02/11/17 Amlodipine Besylate [Norvasc -] 5 mg NGT DAILY #30 tablet 02/26/17 Carbamazepine [Tegretol -] 200 mg NGT TID #90 tablet 02/26/17 Anemia: No Asthma: No Cancer: No CVA: No COPD: No CHF: No DVT: No Dementia: (M.S,TRIG.NEUROLAGIA) Diabetes: No GI Disorders: Yes Disorders: Yes (baclofen implant) HTN: Yes Hypercholesterolemia: No Liver Disease: No Seizures: Yes Thyroid Disease: No - Surgical History Abdominal Surgery: No Appendectomy: No Cardiac Surgery: No Cholecystectomy: No GI Surgery: (BACLOFEN IMPLANT) Lung Surgery: Yes (TRACH) Neurologic Surgery: No Orthopedic Surgery: No - Immunization History Immunization Up to Date: Yes - Suicide/Smoking/Psychosocial Hx Smoking Status: No Smoking History: Never smoked Have you smoked in the past 12 months: No Number of Cigarettes Smoked Daily: 0 Cigars Per Day: 0 Information on smoking cessation initiated: No Hx Alcohol Use: No Drug/Substance Use Hx: No Substance Use Type: None Hx Substance Use Treatment: No Review of Systems - Review of Systems Able to Perform ROS?: Yes Comments:: 11/06/17 02:43 CONSTITUTIONAL: Present: generalized weakness Absent: fever, chills, diaphoresis, malaise, loss of appetite HEENT: Absent: rhinorrhea, nasal congestion, throat pain, throat swelling, difficulty swallowing, mouth swelling, ear pain, eye pain, visual Changes CARDIOVASCULAR: Absent: chest pain, loss of consciousness, palpitations, irregular heart rate, peripheral edema RESPIRATORY: Absent: cough, shortness of breath, dyspnea with exertion, orthopnea, wheezing, stridor, hemoptysis GASTROINTESTINAL: Absent: abdominal pain, abdominal distension, nausea, vomiting, diarrhea, constipation, melena, hematochezia GENITOURINARY: Absent: dysuria, frequency, urgency, hesitancy, hematuria, flank pain, genital pain MUSCULOSKELETAL: Absent: myalgia, arthralgia, joint swelling SKIN: Absent: rash, itching, pallor HEMATOLOGIC/IMMUNOLOGIC: Absent: easy bleeding, easy bruising, lymphadenopathy, frequent infections ENDOCRINE: Absent: unexplained weight gain, unexplained weight loss, heat intolerance, cold intolerance NEUROLOGIC: Absent: headache, focal weakness or paresthesias, dizziness, unsteady gait, seizure, mental status changes, bladder or bowel incontinence PSYCHIATRIC: Absent: anxiety, depression, suicidal or homicidal ideation, hallucinations. Is the patient limited Jordanian proficient: No *Physical Exam - Vital Signs Last Vital Signs Temp Pulse Resp BP Pulse Ox 96.4 F L 82 18 158/78 96 11/06/17 02:20 11/06/17 02:20 11/06/17 02:20 11/06/17 02:20 11/06/17 02:20 - Physical Exam Comments: 11/06/17 02:44 GENERAL: Well developed, well nourished. Awake and alert. No acute distress. HEENT: Normocephalic, atraumatic. PERRLA, EOMI. No conjunctival pallor. Sclera are non- icteric. Moist mucous membranes. Oropharynx is clear. NECK: Supple. Full ROM. No JVD. Carotid pulses 2+ and symmetric, without bruits. No thyromegaly. No lymphadenopathy. CARDIOVASCULAR: Regular rate and rhythm. No murmurs, rubs, or gallops. Distal pulses are 2+ and symmetric. PULMONARY: Trach present. No evidence of respiratory distress. Lungs with weak inspiration. course lung sounds. No wheezing, rales or rhonchi. ABDOMINAL: Soft. Non-tender. Non-distended. No rebound or guarding. No organomegaly. Normoactive bowel sounds. MUSCULOSKELETAL Normal range of motion at all joints. No bony deformities or tenderness. No CVA tenderness. EXTREMITIES: No cyanosis. No clubbing. No edema. No calf tenderness. SKIN: Warm and dry. Normal capillary refill. No rashes. No jaundice. NEUROLOGICAL: Alert, awake, appropriate. Cranial nerves 2-12 intact. No deficits to light touch and temperature in face, upper extremities and lower extremities. Pt is a known quadrapaligic. Normoreflexic in the upper and lower extremities. Normal speech. Toes are down-going bilaterally. Gait is normal without ataxia. PSYCHIATRIC: Cooperative. Good eye contact. Appropriate mood and affect. ED Treatment Course - LABORATORY CBC & Chemistry Diagram: 11/06/17 04:00 11/06/17 07:35 Medical Decision Making - Medical Decision Making 11/06/17 03:48 Patient is a 52-year-old female past medical history of MS (not currently on steroid treatment, trached, with indwelling Raza, quadriplegic) hypertension, sleep disorder, hypothyroidism who presents emergency department by ambulance for increased lethargy and altered mental status for one day. DDX includes but is not limited to, sepsis, UTI, PNA, ACS, worsening MS -Labs, Head CT, EKG, Urine, CXR ordered -Core temperature 94. However, pt states she usually runs low. Possibly d/t autonomic dysfunction from MS -Ofirmev and fluids given 11/06/17 06:51 -Urine shows an infection at this time with 3+ leukocytes and 33 WBC's. Sodium 127. H&H stable. Trop negative -EKG: Rate 72bpm. NSR. Normal intervals and axis. No acute ST-T wave changes. -Pt still pending CXR and head CT -Pt will need admission d/t UTI and hyponatremia in the setting of altered mental status. -1 gram of IV ceftriaxone ordered -Sign out given to Earlene Santana DIRECTOR DIGITAL CATALOGUE. Pt pending CT and CXR PCP: Dr. Lopez *DC/Admit/Observation/Transfer Diagnosis at time of Disposition: Hyponatremia, Ventilator associated pneumonia - Referrals - Patient Instructions - Post Discharge Activity
[2017-11-06 04:21] LABS: BASO % 0.3 % (0-2.0); EOS % 2.2 % (0-4.5); HEMATOCRIT 30.8 % (32.4-45.2); HEMOGLOBIN 10.6 GM/dL (10.7-15.3); LYMPH % 18.6 % (8-40); MCH 33.2 pg (25.7-33.7); MCHC 34.4 g/dl (32.0-36.0); MEAN CELL VOLUME 96.5 fl (80-96); MEAN PLT VOLUME 9.1 fl (7.5-11.1); MONO % 7.6 % (3.8-10.2); NEUT % 71.3 % (42.8-82.8); PLATELET COUNT 211 K/MM3 (134-434); RBC 3.19 M/mm3 (3.60-5.2); RDW 15.7 % (11.6-15.6); WHITE BLOOD COUNT 5.1 K/mm3 (4.0-10.0)
[2017-11-06 04:24] LABS: URINE APPEARANCE CLOUDY; URINE BILIRUBIN NEGATIVE (<2.0 mg/dL); URINE COLOR AMBER; URINE GLUCOSE (UA) NEGATIVE (NEGATIVE); URINE KETONE NEGATIVE (NEGATIVE); URINE NITRITE NEGATIVE (NEGATIVE); URINE UROBILINOGEN NEGATIVE mg/dL (0.2-1.0)
[2017-11-06 04:35] LABS: INR 1.05 (0.83-1.09); PROTHROMBIN TIME (PATIENT) 11.9 SEC (9.7-13.0); URINE LEUK ESTERASE 3+ (NEGATIVE); URINE PROTEIN 1+ (NEGATIVE)
[2017-11-06 04:42] LABS: EPI CELLS RARE /HPF (FEW); URINE BACTERIA MODERATE /hpf (NONE SEEN); URINE MUCUS MANY
[2017-11-06] MEDS ORDERED: ACETAMINOPHEN 1000 MG/100 ML VIAL (NON FORMULARY) IVPB ONE (04:44)
[2017-11-06 04:46] LABS: ALBUMIN 3.2 g/dl (3.4-5.0); ALK PHOS 263 U/L (45-117); ANION GAP 9 MMOL/L (8-16); BILIRUBIN,TOTAL 0.2 mg/dL (0.2-1.0); BLOOD UREA NITROGEN 17 mg/dL (7-18); CALCIUM 9.1 mg/dL (8.5-10.1); CHLORIDE 90 mmol/L (98-107); CO2 28 mmol/L (21-32); CREATININE 0.7 mg/dL (0.55-1.02); GLUCOSE,RANDOM 82 mg/dL (74-106); POTASSIUM 4.6 mmol/L (3.5-5.1); SGOT/AST 44 U/L (15-37); SGPT/ALT 56 U/L (12-78); SODIUM 127 mmol/L (136-145)
[2017-11-06] MEDS ORDERED: ACETAMINOPHEN INJECTION 100 ML IVPB ONE (04:49)
[2017-11-06] MEDS ORDERED: CEFTRIAXONE 1,000 MG in DEXTROSE 5%-WATER - 50 ML IVPB ONE (05:12)
[2017-11-06] MEDS ORDERED: CEFTRIAXONE 1 GM/50 ML BAG ONE (06:20)
[2017-11-06 08:48] LABS: ANION GAP 6 MMOL/L (8-16); BLOOD UREA NITROGEN 16 mg/dL (7-18); CALCIUM 8.6 mg/dL (8.5-10.1); CHLORIDE 94 mmol/L (98-107); CO2 30 mmol/L (21-32); CREATININE 0.6 mg/dL (0.55-1.02); GLUCOSE,RANDOM 80 mg/dL (74-106); POTASSIUM 4.5 mmol/L (3.5-5.1); SODIUM 130 mmol/L (136-145)
[2017-11-06] MEDS ORDERED: PIPERACILLIN/TAZOB 4.5 GM 4.5 GM in DEXTROSE 5%-WATER 100 ML IVPB ONE (08:49)
--- NOTE | 2017-11-06 08:52 | PDOC ---
*Physical Exam - Vital Signs Last Vital Signs Temp Pulse Resp BP Pulse Ox 96.4 F L 64 18 161/82 97 11/06/17 02:20 11/06/17 07:49 11/06/17 07:49 11/06/17 07:49 11/06/17 07:49 ED Treatment Course - LABORATORY CBC & Chemistry Diagram: 11/06/17 04:00 11/06/17 07:35 - ADDITIONAL ORDERS Additional order review: Laboratory Results 11/06/17 11/06/17 11/06/17 04:00 04:00 04:00 PT with INR INR Sodium Potassium Chloride Carbon Dioxide Anion Gap BUN Creatinine Creat Clearance w eGFR Random Glucose Lactic Acid 0.4 Calcium Total Bilirubin AST ALT Alkaline Phosphatase Creatine Kinase 97 Troponin I < 0.02 Total Protein Albumin Urine Color Urine Appearance Urine pH Ur Specific [place] Urine Protein Urine Glucose (UA) Urine Ketones Urine Blood Urine Nitrite Urine Bilirubin Urine Urobilinogen Ur Leukocyte Esterase Urine WBC (Auto) Urine RBC (Auto) Ur Epithelial Cells Urine Bacteria Urine Mucus Urine HCG, Qual Negative 11/06/17 11/06/17 11/06/17 04:00 04:00 04:00 PT with INR 11.90 INR 1.05 Sodium 127 L Potassium 4.6 Chloride 90 L Carbon Dioxide 28 Anion Gap 9 BUN 17 Creatinine 0.7 Creat Clearance w eGFR > 60 Random Glucose 82 Lactic Acid Calcium 9.1 Total Bilirubin 0.2 AST 44 H ALT 56 Alkaline Phosphatase 263 H Creatine Kinase Troponin I Total Protein 8.0 Albumin 3.2 L Urine Color Margaret Urine Appearance Cloudy Urine pH 6.0 Ur Specific [place] 1.015 Urine Protein 1+ H Urine Glucose (UA) Negative Urine Ketones Negative Urine Blood Negative Urine Nitrite Negative Urine Bilirubin Negative Urine Urobilinogen Negative Ur Leukocyte Esterase 3+ H Urine WBC (Auto) 22 Urine RBC (Auto) 2 Ur Epithelial Cells Rare Urine Bacteria Moderate Urine Mucus Many Urine HCG, Qual 11/06/17 04:00 RBC 3.19 L MCV 96.5 H MCHC 34.4 RDW 15.7 H MPV 9.1 D Neutrophils % 71.3 Lymphocytes % 18.6 D Monocytes % 7.6 Eosinophils % 2.2 Basophils % 0.3 - Medications Given in the ED: ED Medications Discontinued Medications Generic Name Dose Route Start Last Admin Trade Name Freq PRN Reason Stop Dose Admin Acetaminophen 1,000 mg 11/06/17 04:44 11/06/17 05:00 Ofirmev Injection - IVPB 11/06/17 04:45 1,000 mg ONCE ONE Administration Sodium Chloride 1,000 mls @ 1,000 mls/hr 11/06/17 02:45 11/06/17 04:00 Normal Saline - IV 11/06/17 03:44 1,000 mls/hr ASDIR STA Administration Ceftriaxone Sodium 1,000 mg/ 50 mls @ 100 mls/hr 11/06/17 05:12 11/06/17 06: 00 Dextrose IVPB 11/06/17 05:41 100 mls/hr ONCE ONE Administration Medical Decision Making - Medical Decision Making 11/06/17 08:21 Patient received in sign out from ORQUIDEA Luu. Patient with noted sodium of 127. Patient ordered for repeat BMP. Patient also was noted UTI and was given ceftriaxone. Patient is vent relater dependent with tracheostomy. Chest x-ray shows tracheostomy tube, large heart scoliosis and right base infiltrate/ atelectasis. Patient ordered for Zosyn. 11/06/17 09:58 Laboratory Tests 11/06/17 07:35 Sodium 130 L Chloride 94 L Carbon Dioxide 30 Anion Gap 6 L BUN 16 Creatinine 0.6 Creat Clearance w eGFR > 60 Random Glucose 80 T show no evidence of the degree of pathology. This partially calcified meningioma measuring 1.3 cm in the right parietal. Sodium will be repleted with 1 L of normal saline. Call placed to Dr. Lopez for admission 11/06/17 10:01 Discussed with NUCLEAR EQUIPMENT RESEARCH ENGINEER jose Gloria. *DC/Admit/Observation/Transfer Diagnosis at time of Disposition: Hyponatremia, Ventilator associated pneumonia - Discharge Dispostion Decision to Admit order: Yes - Referrals Referrals: Anne Lopez MD [Primary Care Provider] - - Patient Instructions - Post Discharge Activity
[2017-11-06] MEDS ORDERED: PIPERACILLIN/TAZOB 4.5 GM 4.5 GM/100 ML BAG IVPB ONE (08:53)
[2017-11-06] MEDS ORDERED: ALPRAZolam 0.25 MG TABLET PO PRN (12:25)
[2017-11-06] MEDS ORDERED: SODIUM CHLORIDE 1,000 ML IV SCH (12:30)
--- NOTE | 2017-11-06 14:52 | PN ---
Progress Note (short form) - Note Progress Note: ID Consult dictated Altered mental status, possible toxic metabolic encephalopathy secondary to sepsis ? UTI ? Pneumonia Pending c/s empiric ceftriaxone
[2017-11-06] MEDS: hydrALAZINE HCL 50 MG TABLET (FP) PO SCH ×2 (15:01→21:33)
[2017-11-06] MEDS: BACLOFEN 10 MG TABLET (FP) PO SCH ×2 (15:01→21:33)
[2017-11-06] MEDS: amLODIPine BESYLATE 5 MG TABLET (FP) PO SCH (15:01)
[2017-11-06] MEDS: carBAMazepine 200 MG TABLET PO SCH ×2 (15:02→22:31)
[2017-11-06] MEDS: FERROUS SO4 325 MG TABLET (FP) PO SCH (17:54)
[2017-11-06] MEDS: SODIUM CHLORIDE 1,000 ML IV SCH (17:56)
--- NOTE | 2017-11-06 18:47 | CON.NEURO ---
Consult Consult Specialty:: NEUROLOGY-WILLIAM PATIÑO Reason for Consultation:: AMS - History of Present Illness History of Present Illness: Patient is a 52-year-old female past medical history of MS (not currently on steroid treatment, trached, with indwelling Perera, quadriplegic) hypertension, sleep disorder, hypothyroidism who presents emergency department by ambulance for increased lethargy and altered mental status for one day. Mother is at bedside and states that she was trying to talk to the patient however she was unresponsive for about 1-2 minutes earlier this evening. Mother states that patient had not been feeling well yesterday and was not eating. Upon arrival in the emergency department patient is alert and oriented 3. She states that everything hurts. Denies fevers, chills, difficulty breathing, shortness of breath, chest pain, nausea, vomiting and diarrhea. Noted to have NA-127,130. I spoke to patients sister Erinn who is a nurse- her Na has been chronically low, Tegretol has controlled her facial pain well and pt/family are reluctant to discontinue it. Pt. reports she has no recollection of above spell of unresponsive, feels she is at her baseline. 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 chronic decubitus followed by wound care. neurogenic bladder, chronic perera catheter - Alcohol/Substance Use Hx Alcohol Use: No History of Substance Use: reports: None - Smoking History Smoking history: Never smoked Have you smoked in the past 12 months: No Aproximately how many cigarettes per day: 0 - Social History Usual Living Arrangement: With Parent ADL: Support Services History of Recent Travel: No Home Medications - Allergies Allergies/Adverse Reactions: Allergies Allergy/AdvReac Type Severity Reaction Status Date / Time chloral hydrate Allergy Intermediate Rash Verified 11/06/17 02:41 [Chloral Hydrate] azathioprine [From Imuran] Allergy Rash Verified 11/06/17 02:41 azathioprine sodium Allergy Rash Verified 11/06/17 02:41 [From Imuran] adhesive tape AdvReac Severe sensitivity Verified 11/06/17 02:41 to glue adhesive AdvReac Unknown Verified 11/06/17 02:41 - Home Medications Home Medications: Ambulatory Orders Clonazepam [Klonopin] 0.5 mg PO DAILY 05/08/15 Baclofen 0 mg IVSS ASDIR 02/06/16 Mirtazapine 7.5 mg PO DAILY 02/06/16 Pantoprazole Sodium [Protonix] 40 mg PO DAILY 02/06/16 Ferrous Sulfate [Feosol] 325 mg PO BIDWM #30 bottle MDD 2 05/21/16 Levothyroxine [Synthroid -] 100 mcg PO DAILY@0700 #30 tablet 06/24/16 Sodium Chloride Tablet - 1 gm PO DAILY #30 tablet 06/24/16 hydrALAZINE HCL [Apresoline -] 50 mg PO TID 02/11/17 Amlodipine Besylate [Norvasc -] 5 mg NGT DAILY #30 tablet 02/26/17 Carbamazepine [Tegretol -] 200 mg NGT TID #90 tablet 02/26/17 Family Disease History - Family Disease History Family Disease History: Other: Mother Physical Exam-Neuro Vital Signs: Vital Signs Temperature 94.4 F L 11/06/17 18:00 Pulse Rate 61 11/06/17 18:00 Respiratory Rate 18 11/06/17 18:00 Blood Pressure 153/72 11/06/17 18:00 O2 Sat by Pulse Oximetry (%) 95 11/06/17 12:30 Labs: CBC, BMP 11/06/17 04:00 11/06/17 07:35 INR, PTT INR 1.05 (0.83-1.09) 11/06/17 04:00 Assessment/Plan Pt. with MS, quadriplegic, trigeminal neuralgia now admitted with episode of change in mewntal status, is back to her baseline. Found to have UTI, low Na- the spell of unresponsiveness likely encephalopathy due to infection/metabolic etiology, less likely seizure(partial). Suggest: -Please send serum and urine osmolality and urine electrolytes, Tegretol can cause SIADH. Would coint.Tegretol as pt/family are reluctant to discontinue/ replace it and her Na is coming up, can fluid restrict for now. Will d/w on Wednesday.Infection being treated . Thank you, Darell Hernandez MD(for ).
[2017-11-06] MEDS ORDERED: PT OWN MED DRAWER 7, Y5N ONE (20:43)
[2017-11-06] MEDS: clonazePAM 0.5 MG TABLET PO PRN (22:03)
[2017-11-07] MEDS: LEVOTHYROXINE NA 100 MCG TABLET (FP) PO SCH (07:07)
[2017-11-07] MEDS: hydrALAZINE HCL 50 MG TABLET (FP) PO SCH ×3 (07:07→22:07)
[2017-11-07] MEDS: SODIUM CHLORIDE 1,000 ML IV SCH (07:21)
[2017-11-07] MEDS ORDERED: PT OWN MED DRAWER 7, Y5N ONE ×5 (07:26→17:16)
[2017-11-07] MEDS: carBAMazepine 200 MG TABLET PO SCH ×3 (07:47→22:09)
[2017-11-07] MEDS: FERROUS SO4 325 MG TABLET (FP) PO SCH ×3 (08:43→22:07)
--- NOTE | 2017-11-07 10:10 | HP ---
Admitting History and Physical - Primary Care Physician PCP: Anne Lopez - Admission Chief Complaint: AMS. Weakness. Hyponatremia. Pneumonia History of Present Illness: Patient is a 52-year-old female past medical history of MS (not currently on steroid treatment, trached, with indwelling Perera, quadriplegic) hypertension, sleep disorder, hypothyroidism who presents emergency department by ambulance for increased lethargy and altered mental status for one day. Mother is at bedside and states that she was trying to talk to the patient however she was unresponsive for about 1-2 minutes earlier this evening. Mother states that patient had not been feeling well yesterday and was not eating. Upon arrival in the emergency department patient is alert and oriented 3. She states that everything hurts. Denies fevers, chills, difficulty breathing, shortness of breath, chest pain, nausea, vomiting and diarrhea. Noted to have NA-127,130. 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: Multiple Sclerosis (quadraplegia), Other (legally blind, trigeminal neuralgia -> baclofen pump) Cardiovascular: Yes: HTN, Hyperlipdemia Pulmonary: Yes: Pneumonia, Previously Intubated, Other Gastrointestinal: Yes: Constipation (chronic) Renal/: Yes: Neurogenic Bladder ( neurogenic bladder, chronic perera catheter) ...LMP: 06/07/12 ...: No Heme/Onc: Yes: Anemia Infectious Disease: Yes: Other (pneumonia, uti treated by urologist) Musculoskeletal: Yes: Other Dermatology: Yes: Other (chronic decubitus followed by wound care) - Smoking History Smoking history: Never smoked Have you smoked in the past 12 months: No Aproximately how many cigarettes per day: 0 - Alcohol/Substance Use Hx Alcohol Use: No History of Substance Use: reports: None - Social History ADL: Support Services History of Recent Travel: No Home Medications - Allergies Allergies/Adverse Reactions: Allergies Allergy/AdvReac Type Severity Reaction Status Date / Time chloral hydrate Allergy Intermediate Rash Verified 11/06/17 02:41 [Chloral Hydrate] azathioprine [From Imuran] Allergy Rash Verified 11/06/17 02:41 azathioprine sodium Allergy Rash Verified 11/06/17 02:41 [From Imuran] adhesive tape AdvReac Severe sensitivity Verified 11/06/17 02:41 to glue adhesive AdvReac Unknown Verified 11/06/17 02:41 - Home Medications Home Medications: Ambulatory Orders Clonazepam [Klonopin] 0.5 mg PO DAILY 05/08/15 Baclofen 0 mg IVSS ASDIR 02/06/16 Mirtazapine 7.5 mg PO DAILY 02/06/16 Pantoprazole Sodium [Protonix] 40 mg PO DAILY 02/06/16 Ferrous Sulfate [Feosol] 325 mg PO BIDWM #30 bottle MDD 2 05/21/16 Levothyroxine [Synthroid -] 100 mcg PO DAILY@0700 #30 tablet 06/24/16 Sodium Chloride Tablet - 1 gm PO DAILY #30 tablet 06/24/16 hydrALAZINE HCL [Apresoline -] 50 mg PO TID 02/11/17 Amlodipine Besylate [Norvasc -] 5 mg NGT DAILY #30 tablet 02/26/17 Carbamazepine [Tegretol -] 200 mg NGT TID #90 tablet 02/26/17 Family Disease History - Family Disease History Family Disease History: Other: Mother Review of Systems - Review of Systems Constitutional: reports: Lethargy, Weakness Eyes: reports: No Symptoms HENT: reports: No Symptoms Neck: reports: No Symptoms Cardiovascular: reports: No Symptoms Respiratory: reports: No Symptoms Gastrointestinal: reports: No Symptoms Genitourinary: reports: No Symptoms Breasts: reports: No Symptoms Reported Musculoskeletal: reports: No Symptoms Integumentary: reports: No Symptoms Neurological: reports: Change in LOC, Weakness Endocrine: reports: No Symptoms Hematology/Lymphatic: reports: No Symptoms Psychiatric: reports: No Symptoms Physical Examination Vital Signs: Vital Signs Temperature 98.0 F 11/07/17 06:00 Pulse Rate 80 11/07/17 06:00 Respiratory Rate 15 11/07/17 06:00 Blood Pressure 130/60 11/07/17 06:00 O2 Sat by Pulse Oximetry (%) 100 11/06/17 21:00 Constitutional: Yes: Well Nourished, No Distress, Calm Cardiovascular: Yes: Regular Rate and Rhythm Respiratory: Yes: Regular Gastrointestinal: Yes: Normal Bowel Sounds, Soft Musculoskeletal: Yes: WNL Extremities: Yes: WNL Neurological: Yes: Alert, Oriented Psychiatric: Yes: Alert, Oriented Labs: CBC, BMP 11/06/17 04:00 11/06/17 07:35 Imaging - Results Chest X-ray: Report Reviewed Problem List - Problems (1) Hyponatremia Assessment/Plan: -Nephrology consult -Sodium chloride tabs -Urine Osm pending -monitor trend Code(s): E87.1 - HYPO-OSMOLALITY AND HYPONATREMIA (2) Ventilator associated pneumonia Assessment/Plan: -Uses mech vent at bedtime at home -Would continue inpatient at bedtime -pulmonary consult Code(s): J95.851 - VENTILATOR ASSOCIATED PNEUMONIA (3) Acute on chronic respiratory failure with hypoxia and hypercapnia Code(s): J96.21 - ACUTE AND CHRONIC RESPIRATORY FAILURE WITH HYPOXIA; J96.22 - ACUTE AND CHRONIC RESPIRATORY FAILURE WITH HYPERCAPNIA (4) Adrenal insufficiency Assessment/Plan: -Nephrology consult -2/2 tegretol? -Urine Osm Pending Code(s): E27.40 - UNSPECIFIED ADRENOCORTICAL INSUFFICIENCY (5) Altered mental status Assessment/Plan: -2/2 metabolic encephalopathy -UC contaminated- would repeat -BC pending -neurology consult -Head CT unremarkable Code(s): R41.82 - ALTERED MENTAL STATUS, UNSPECIFIED Qualifiers: Altered mental status type: unspecified Qualified Code(s): R41.82 - Altered mental status, unspecified (6) Functional quadriplegia Code(s): R53.2 - FUNCTIONAL QUADRIPLEGIA (7) Hx of multiple sclerosis Code(s): Z86.69 - PERSONAL HISTORY OF DIS OF THE NERVOUS SYS AND SENSE ORGANS (8) Hypothermia Assessment/Plan: -Alyssa maurizioer -resolved -monitor rectal temp Code(s): T68.XXXA - HYPOTHERMIA, INITIAL ENCOUNTER Qualifiers: Encounter type: initial encounter Qualified Code(s): T68.XXXA - Hypothermia , initial encounter (9) Anemia Assessment/Plan: -chronic -monitor trend Code(s): D64.9 - ANEMIA, UNSPECIFIED Qualifiers: Other causes of anemia: other cause, not classified Assessment/Plan see problem list
[2017-11-07] MEDS ORDERED: cefTRIAXone SODIUM 1 GM VIAL ONE (10:24)
[2017-11-07] MEDS ORDERED: DEXTROSE 5%-WATER 100 ML IVPB ONE (10:25)
[2017-11-07] MEDS: BACLOFEN 10 MG TABLET (FP) PO SCH ×2 (10:37→22:08)
[2017-11-07] MEDS: amLODIPine BESYLATE 5 MG TABLET (FP) PO SCH (10:37)
[2017-11-07] MEDS: CEFTRIAXONE 1 GM in DEXTROSE 5%-WATER 100 ML IVPB SCH (10:37)
[2017-11-07] MEDS: ENOXAPARIN NA (PORCINE) 40 MG/0.4 ML DISP.SYRIN SQ SCH (10:37)
[2017-11-07] MEDS: PANTOPRAZOLE 40 MG TABLET (FP) PO SCH (10:37)
[2017-11-07] MEDS: SODIUM CHLORIDE 1 GM TABLET PO SCH (10:38)
[2017-11-07 11:12] LABS: BASO % 0.5 % (0-2.0); EOS % 0.4 % (0-4.5); HEMATOCRIT 30.5 % (32.4-45.2); HEMOGLOBIN 10.2 GM/dL (10.7-15.3); LYMPH % 6.2 % (8-40); MCH 32.3 pg (25.7-33.7); MCHC 33.4 g/dl (32.0-36.0); MEAN CELL VOLUME 96.7 fl (80-96); MEAN PLT VOLUME 9.1 fl (7.5-11.1); MONO % 3.2 % (3.8-10.2); NEUT % 89.7 % (42.8-82.8); PLATELET COUNT 193 K/MM3 (134-434); RBC 3.15 M/mm3 (3.60-5.2); RDW 15.5 % (11.6-15.6); WHITE BLOOD COUNT 12.2 K/mm3 (4.0-10.0)
[2017-11-07 12:15] LABS: ANION GAP 11 MMOL/L (8-16); BILIRUBIN,TOTAL 0.3 mg/dL (0.2-1.0); BLOOD UREA NITROGEN 10 mg/dL (7-18); CALCIUM 9.1 mg/dL (8.5-10.1); CHLORIDE 96 mmol/L (98-107); CO2 25 mmol/L (21-32); CREATININE 0.5 mg/dL (0.55-1.02); GLUCOSE,RANDOM 62 mg/dL (74-106); POTASSIUM 4.4 mmol/L (3.5-5.1); SGOT/AST 34 U/L (15-37); SGPT/ALT 42 U/L (12-78); SODIUM 132 mmol/L (136-145); TOT PROT 7.4 g/dl (6.4-8.2)
[2017-11-07 12:16] LABS: ALK PHOS 236 U/L (45-117)
--- NOTE | 2017-11-07 13:49 | CON.PULM ---
Consult Consult Specialty:: PULMONARY Referred by:: Dr. Lopez Reason for Consultation:: pneumonia - History of Present Illness Chief Complaint: altered mental status History of Present Illness: 52yo female with h/o multiple sclerosis, HTN, hypothyroidism, sleep disorder, chronic respiratory failure s/p trach who was admitted with altered mental status. Pt lethargic but arousable, history obtained from sister at bedside. States she has been more lethargic, disoriented. No fevers or chills. Found to be hypothermic on admission. RLL seen on CXR. At home, she is not on oxygen via trach during the day but is mechanically ventilated at night. 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 chronic decubitus followed by wound care. neurogenic bladder, chronic perera catheter - Alcohol/Substance Use Hx Alcohol Use: No History of Substance Use: reports: None - Smoking History Smoking history: Never smoked Have you smoked in the past 12 months: No Aproximately how many cigarettes per day: 0 - Social History Usual Living Arrangement: With Parent ADL: Support Services History of Recent Travel: No Home Medications - Allergies Allergies/Adverse Reactions: Allergies Allergy/AdvReac Type Severity Reaction Status Date / Time chloral hydrate Allergy Intermediate Rash Verified 11/06/17 02:41 [Chloral Hydrate] azathioprine [From Imuran] Allergy Rash Verified 11/06/17 02:41 azathioprine sodium Allergy Rash Verified 11/06/17 02:41 [From Imuran] adhesive tape AdvReac Severe sensitivity Verified 11/06/17 02:41 to glue adhesive AdvReac Unknown Verified 11/06/17 02:41 - Home Medications Home Medications: Ambulatory Orders Clonazepam [Klonopin] 0.5 mg PO DAILY 05/08/15 Baclofen 0 mg IVSS ASDIR 02/06/16 Mirtazapine 7.5 mg PO DAILY 02/06/16 Pantoprazole Sodium [Protonix] 40 mg PO DAILY 02/06/16 Ferrous Sulfate [Feosol] 325 mg PO BIDWM #30 bottle MDD 2 05/21/16 Levothyroxine [Synthroid -] 100 mcg PO DAILY@0700 #30 tablet 06/24/16 Sodium Chloride Tablet - 1 gm PO DAILY #30 tablet 06/24/16 hydrALAZINE HCL [Apresoline -] 50 mg PO TID 02/11/17 Amlodipine Besylate [Norvasc -] 5 mg NGT DAILY #30 tablet 02/26/17 Carbamazepine [Tegretol -] 200 mg NGT TID #90 tablet 02/26/17 Family Disease History - Family Disease History Family Disease History: Other: Mother Review of Systems Unable to obtain ROS, reason: pt lethargic Physical Exam Vital Sings: Vital Signs Temperature 94.8 F L 11/07/17 12:45 Pulse Rate 92 H 11/07/17 10:29 Respiratory Rate 24 11/07/17 10:29 Blood Pressure 136/89 11/07/17 10:29 O2 Sat by Pulse Oximetry (%) 100 11/06/17 21:00 Constitutional: Yes: Other (lethargic but arousable) Eyes: Yes: Conjunctiva Clear, EOM Intact HENT: Yes: Atraumatic, Normocephalic Neck: Yes: Supple, Trachea Midline Cardiovascular: Yes: Regular Rate and Rhythm Respiratory: Yes: Diminished (distant breath sounds) ...Clubbing: No Gastrointestinal: Yes: Normal Bowel Sounds, Soft. No: Tenderness Edema: No Neurological: Yes: Lethargy Labs: CBC, BMP 11/07/17 10:40 11/07/17 10:40 Imaging - Results Chest X-ray: Report Reviewed, Image Reviewed (RLL infiltrate) Problem List - Problems (1) Pneumonia Code(s): J18.9 - PNEUMONIA, UNSPECIFIED ORGANISM Qualifiers: Pneumonia type: pneumonia due to methicillin-resistant Staphylococcus aureus (MRSA) (2) Chronic respiratory failure Code(s): J96.10 - CHRONIC RESPIRATORY FAILURE, UNSP W HYPOXIA OR HYPERCAPNIA (3) Multiple sclerosis Code(s): G35 - MULTIPLE SCLEROSIS (4) HTN (hypertension) Code(s): I10 - ESSENTIAL (PRIMARY) HYPERTENSION Assessment/Plan r/o Pneumonia vs Atelectasis Chronic Respiratory Failure Multiple Sclerosis HTN Hypothyroidism - agree with empiric antibiotics - f/u cultures - monitor temp curve, WBC trend - aspiration precautions - trach collar during day, mechanical ventilation at night - O2 to keep Spo2 >90% - DVT prophylaxis Thank you for this consult Tereso Terrell MD
--- NOTE | 2017-11-07 14:04 | CON.NEP ---
Consult Consult Specialty:: Nephrology Referred by:: Kisha Gloria Reason for Consultation:: hyponatremia - History of Present Illness Chief Complaint: MS change History of Present Illness: 52 with MS quadriplegic trached mechanically ventilated at night Lives home with mom and aides Admitted with MS change Now hypothermic but awake alert Xray has Rt LL pneumonia Has wounds on Buttocks followed by DR Miranda Na always runs 130-135 range ON tegretol that she takes for neuropathic pain Normally eats but lately decreased intake of food On salt tab 1 daily - History Source History Provided By: Family Member, Medical Record - 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 chronic decubitus followed by wound care. neurogenic bladder, chronic perera catheter - Alcohol/Substance Use Hx Alcohol Use: No History of Substance Use: reports: None - Smoking History Smoking history: Never smoked Have you smoked in the past 12 months: No Aproximately how many cigarettes per day: 0 - Social History Usual Living Arrangement: With Parent ADL: Support Services History of Recent Travel: No Home Medications - Allergies Allergies/Adverse Reactions: Allergies Allergy/AdvReac Type Severity Reaction Status Date / Time chloral hydrate Allergy Intermediate Rash Verified 11/06/17 02:41 [Chloral Hydrate] azathioprine [From Imuran] Allergy Rash Verified 11/06/17 02:41 azathioprine sodium Allergy Rash Verified 11/06/17 02:41 [From Imuran] adhesive tape AdvReac Severe sensitivity Verified 11/06/17 02:41 to glue adhesive AdvReac Unknown Verified 11/06/17 02:41 - Home Medications Home Medications: Ambulatory Orders Clonazepam [Klonopin] 0.5 mg PO DAILY 05/08/15 Baclofen 0 mg IVSS ASDIR 02/06/16 Mirtazapine 7.5 mg PO DAILY 02/06/16 Pantoprazole Sodium [Protonix] 40 mg PO DAILY 02/06/16 Ferrous Sulfate [Feosol] 325 mg PO BIDWM #30 bottle MDD 2 05/21/16 Levothyroxine [Synthroid -] 100 mcg PO DAILY@0700 #30 tablet 06/24/16 Sodium Chloride Tablet - 1 gm PO DAILY #30 tablet 06/24/16 hydrALAZINE HCL [Apresoline -] 50 mg PO TID 02/11/17 Amlodipine Besylate [Norvasc -] 5 mg NGT DAILY #30 tablet 02/26/17 Carbamazepine [Tegretol -] 200 mg NGT TID #90 tablet 02/26/17 Family Disease History - Family Disease History Family Disease History: Other: Mother Nephrology Consult - Height Height: 5 ft 9 in - Weight Weight: 154 lb 9.6 oz - BMI Body Mass Index (BMI): 22.8 - Lab Results CBC,BMP: CBC, BMP 11/07/17 10:40 11/07/17 10:40 Anion Gap: Anion Gap Anion Gap 11 MMOL/L (8-16) 11/07/17 10:40 - Physical Examination Vital Signs: Vital Signs Temperature 94.8 F L 11/07/17 12:45 Pulse Rate 92 H 11/07/17 10:29 Respiratory Rate 24 11/07/17 10:29 Blood Pressure 136/89 11/07/17 10:29 O2 Sat by Pulse Oximetry (%) 100 11/06/17 21:00 Constitutional: Yes: Other (trached) Respiratory: Yes: Other (rhonchi) Edema: No Assessment/Plan 52 with MS quadreplegic trached in with pneumonia UA wbc culture p Hypoatremia Na 127 from decreased food intake Need solute to help excreate free water Serm osm low Urine high TSH nornal in Feb 2017 Na up to 130 which is acceptable MS change unlikely related to Na 127 Would continue the tegretol and 1 salt tab as that has been keeping the Na at an acceptable range If starts to eat and drink can stop fluids Free water restrict to 1000 cc a day Mix all meds in NS Check fe stores may be able to give IV fe ad Dc oral fe TRy and limit pill burden if possible PLease call for questions Dr Vu [phone]
[2017-11-07] MEDS: FLUCONAZOLE 100 MG TABLET (UD) PO SCH (15:04)
[2017-11-07] MEDS: clonazePAM 0.5 MG TABLET PO PRN (22:07)
[2017-11-08] MEDS: carBAMazepine 200 MG TABLET PO SCH ×2 (06:46→15:24)
[2017-11-08] MEDS: LEVOTHYROXINE NA 100 MCG TABLET (FP) PO SCH (06:46)
[2017-11-08] MEDS: hydrALAZINE HCL 50 MG TABLET (FP) PO SCH ×3 (06:46→21:46)
[2017-11-08] MEDS ORDERED: PT OWN MED DRAWER 7, Y5N ONE ×3 (06:54→15:20)
[2017-11-08 07:30] LABS: BASO % 0.2 % (0-2.0); EOS % 1.2 % (0-4.5); HEMATOCRIT 27.6 % (32.4-45.2); HEMOGLOBIN 9.4 GM/dL (10.7-15.3); LYMPH % 12.4 % (8-40); MCH 32.6 pg (25.7-33.7); MEAN PLT VOLUME 8.7 fl (7.5-11.1); MONO % 6.7 % (3.8-10.2); NEUT % 79.5 % (42.8-82.8); PLATELET COUNT 179 K/MM3 (134-434); RBC 2.87 M/mm3 (3.60-5.2); RDW 15.7 % (11.6-15.6); WHITE BLOOD COUNT 6.1 K/mm3 (4.0-10.0)
[2017-11-08 07:55] LABS: ALBUMIN 2.8 g/dl (3.4-5.0); ANION GAP 12 MMOL/L (8-16); BLOOD UREA NITROGEN 8 mg/dL (7-18); CHLORIDE 99 mmol/L (98-107); CO2 25 mmol/L (21-32); GLUCOSE,RANDOM 82 mg/dL (74-106); POTASSIUM 4.1 mmol/L (3.5-5.1); SODIUM 136 mmol/L (136-145)
[2017-11-08 07:59] LABS: ALK PHOS 205 U/L (45-117); BILIRUBIN,TOTAL 0.3 mg/dL (0.2-1.0); CREATININE 0.5 mg/dL (0.55-1.02); SGOT/AST 24 U/L (15-37); SGPT/ALT 35 U/L (12-78)
--- NOTE | 2017-11-08 10:10 | PN ---
Progress Note (short form) - Note Progress Note: PULMONARY VSS/AFEBRILE AWAKE/ALERT AIDE IN ATTENDANCE Constitutional: Appears stable Eyes: Yes: Conjunctiva Clear, EOM Intact HENT: Yes: Atraumatic, Normocephalic Neck: Yes: Supple, Trachea Midline Cardiovascular: Yes: Regular Rate and Rhythm Respiratory: Yes: Diminished (distant breath sounds) ...Clubbing: No Gastrointestinal: Yes: Normal Bowel Sounds, Soft. No: Tenderness Edema: No Neurological: Yes: Lethargy Labs: noted - Results Chest X-ray: Report Reviewed, Image Reviewed (RLL infiltrate) Problem List - Problems (1) Pneumonia Code(s): J18.9 - PNEUMONIA, UNSPECIFIED ORGANISM Qualifiers: Pneumonia type: pneumonia due to methicillin-resistant Staphylococcus aureus (MRSA) (2) Chronic respiratory failure Code(s): J96.10 - CHRONIC RESPIRATORY FAILURE, UNSP W HYPOXIA OR HYPERCAPNIA (3) Multiple sclerosis Code(s): G35 - MULTIPLE SCLEROSIS (4) HTN (hypertension) Code(s): I10 - ESSENTIAL (PRIMARY) HYPERTENSION Assessment/Plan r/o Pneumonia vs Atelectasis Chronic Respiratory Failure Multiple Sclerosis HTN Hypothyroidism - agree with empiric antibiotics - f/u cultures - monitor temp curve, WBC trend - aspiration precautions - trach collar during day, mechanical ventilation at night - O2 to keep Spo2 >90% - DVT prophylaxis Chris TINEO MD
[2017-11-08] MEDS ORDERED: DEXTROSE 5%-WATER 100 ML IVPB ONE (10:52)
[2017-11-08] MEDS ORDERED: cefTRIAXone SODIUM 1 GM VIAL ONE (10:52)
[2017-11-08] MEDS: FERROUS SO4 325 MG TABLET (FP) PO SCH ×2 (11:21→18:02)
[2017-11-08] MEDS: BACLOFEN 10 MG TABLET (FP) PO SCH (11:21)
[2017-11-08] MEDS: PANTOPRAZOLE 40 MG TABLET (FP) PO SCH (11:21)
[2017-11-08] MEDS: amLODIPine BESYLATE 5 MG TABLET (FP) PO SCH (11:21)
[2017-11-08] MEDS: FLUCONAZOLE 100 MG TABLET (UD) PO SCH (11:22)
[2017-11-08] MEDS: CEFTRIAXONE 1 GM in DEXTROSE 5%-WATER 100 ML IVPB SCH (11:22)
[2017-11-08] MEDS: ENOXAPARIN NA (PORCINE) 40 MG/0.4 ML DISP.SYRIN SQ SCH (11:22)
[2017-11-08] MEDS: SODIUM CHLORIDE 1 GM TABLET PO SCH (11:23)
--- NOTE | 2017-11-08 14:02 | EKG ---
Test Reason : Blood Pressure : / mmHG Vent. Rate : 072 BPM Atrial Rate : 072 BPM P-R Int : 182 ms QRS Dur : 112 ms QT Int : 378 ms P-R-T Axes : 050 005 044 degrees QTc Int : 413 ms NORMAL SINUS RHYTHM NONSPECIFIC ST ABNORMALITY ABNORMAL ECG WHEN COMPARED WITH ECG OF 11-FEB-2017 15:00, VENT. RATE HAS INCREASED BY 26 BPM Confirmed by DIONICIO APPLE MD ([id number]) on 11/08/2017 2:01:57 PM Referred By: Confirmed By:DIONICIO APPLE MD
[2017-11-08 15:27] VITALS: BMI 22.7
[2017-11-08] MEDS ORDERED: BACLOFEN 10 MG TABLET (FP) PO PRN (16:25)
--- NOTE | 2017-11-08 20:35 | PN ---
Progress Note, Physician - Current Medication List Current Medications: Active Medications Amlodipine Besylate (Norvasc -) 5 mg PO DAILY [facility] Last Admin: 11/08/17 11:21 Dose: 5 mg Baclofen (Lioresal -) 10 mg PO DAILY PRN PRN Reason: SPASMS Carbamazepine (Tegretol -) 200 mg PO DAILY@0600 [facility]INE Carbamazepine (Tegretol -) 100 mg PO DAILY@1500,2200 [facility] Clonazepam (Klonopin -) 0.5 mg PO HS PRN PRN Reason: ANXIETY Last Admin: 11/07/17 22:07 Dose: 0.5 mg Enoxaparin Sodium (Lovenox -) 40 mg SQ DAILY [facility] Last Admin: 11/08/17 11:22 Dose: 40 mg Ferrous Sulfate (Feosol -) 325 mg PO BIDWM [facility] Last Admin: 11/08/17 18:02 Dose: 325 mg Fluconazole (Diflucan -) 100 mg PO DAILY [facility] Last Admin: 11/08/17 11:22 Dose: 100 mg Hydralazine HCl (Apresoline -) 50 mg PO TID [facility] Last Admin: 11/08/17 15:24 Dose: 50 mg Ceftriaxone Sodium 1 gm/ (Dextrose) 100 mls @ 200 mls/hr IVPB DAILY [facility]; Protocol Last Admin: 11/08/17 11:22 Dose: 200 mls/hr Levothyroxine Sodium (Synthroid -) 100 mcg PO DAILY@0700 [facility] Last Admin: 11/08/17 06:46 Dose: 100 mcg Pantoprazole Sodium (Protonix -) 40 mg PO DAILY [facility] Last Admin: 11/08/17 11:21 Dose: 40 mg Sodium Chloride (Sodium Chloride Tablet -) 1 gm PO DAILY [facility] Last Admin: 11/08/17 11:23 Dose: 1 gm - Objective Vital Signs: Vital Signs Temperature 97.4 F L 11/08/17 18:30 Pulse Rate 82 11/08/17 18:30 Respiratory Rate 22 11/08/17 18:30 Blood Pressure 173/91 11/08/17 18:30 O2 Sat by Pulse Oximetry (%) 98 11/08/17 18:17 Cardiovascular: Yes: S1, S2 Respiratory: Yes: Other (trach) Gastrointestinal: Yes: Normal Bowel Sounds, Soft Neurological: Yes: Pre-Existing Deficit Labs: CBC, BMP 11/08/17 06:30 11/08/17 06:30 INR, PTT INR 1.05 (0.83-1.09) 11/06/17 04:00 Assessment/Plan - Problems (1) Hyponatremia Assessment/Plan: -Nephrology consult -Sodium chloride tabs -Urine Osm pending -monitor trend Code(s): E87.1 - HYPO-OSMOLALITY AND HYPONATREMIA (2) Ventilator associated pneumonia Assessment/Plan: -Uses mech vent at bedtime at home -Would continue inpatient at bedtime -pulmonary consult Code(s): J95.851 - VENTILATOR ASSOCIATED PNEUMONIA (3) Acute on chronic respiratory failure with hypoxia and hypercapnia Code(s): J96.21 - ACUTE AND CHRONIC RESPIRATORY FAILURE WITH HYPOXIA; J96.22 - ACUTE AND CHRONIC RESPIRATORY FAILURE WITH HYPERCAPNIA (4) Adrenal insufficiency Assessment/Plan: -Nephrology consult -2/2 tegretol? -Urine Osm Pending Code(s): E27.40 - UNSPECIFIED ADRENOCORTICAL INSUFFICIENCY (5) Altered mental status Assessment/Plan: -2/2 metabolic encephalopathy -UC contaminated- would repeat -BC pending -neurology consult -Head CT unremarkable Code(s): R41.82 - ALTERED MENTAL STATUS, UNSPECIFIED Qualifiers: Altered mental status type: unspecified Qualified Code(s): R41.82 - Altered mental status, unspecified (6) Functional quadriplegia Code(s): R53.2 - FUNCTIONAL QUADRIPLEGIA (7) Hx of multiple sclerosis Code(s): Z86.69 - PERSONAL HISTORY OF DIS OF THE NERVOUS SYS AND SENSE ORGANS (8) Hypothermia Assessment/Plan: -Alyssa durham -resolved -monitor rectal temp Code(s): T68.XXXA - HYPOTHERMIA, INITIAL ENCOUNTER Qualifiers: Encounter type: initial encounter Qualified Code(s): T68.XXXA - Hypothermia , initial encounter (9) Anemia Assessment/Plan: -chronic -monitor trend Code(s): D64.9 - ANEMIA, UNSPECIFIED Qualifiers: Other causes of anemia: other cause, not classified
[2017-11-08] MEDS: clonazePAM 0.5 MG TABLET PO PRN (21:47)
[2017-11-08] MEDS: carBAMazepine 100 MG TAB.CHEW PO SCH (21:48)
[2017-11-09] MEDS ORDERED: carBAMazepine 200 MG TABLET PO SCH (06:00)
[2017-11-09] MEDS: hydrALAZINE HCL 50 MG TABLET (FP) PO SCH ×2 (06:13→14:14)
[2017-11-09] MEDS: LEVOTHYROXINE NA 100 MCG TABLET (FP) PO SCH (06:13)
[2017-11-09 07:00] VITALS: TEMP 99.6
[2017-11-09 07:25] LABS: BASO % 0.3 % (0-2.0); EOS % 1.9 % (0-4.5); HEMATOCRIT 30.5 % (32.4-45.2); LYMPH % 19.9 % (8-40); MCH 31.9 pg (25.7-33.7); MCHC 32.9 g/dl (32.0-36.0); MEAN CELL VOLUME 97.1 fl (80-96); MEAN PLT VOLUME 8.4 fl (7.5-11.1); MONO % 11.9 % (3.8-10.2); PLATELET COUNT 225 K/MM3 (134-434); RBC 3.15 M/mm3 (3.60-5.2); RDW 15.6 % (11.6-15.6); WHITE BLOOD COUNT 6.2 K/mm3 (4.0-10.0)
[2017-11-09 07:49] LABS: ALK PHOS 222 U/L (45-117); ANION GAP 9 MMOL/L (8-16); BILIRUBIN,TOTAL 0.4 mg/dL (0.2-1.0); BLOOD UREA NITROGEN 9 mg/dL (7-18); CALCIUM 9.4 mg/dL (8.5-10.1); CHLORIDE 98 mmol/L (98-107); CO2 28 mmol/L (21-32); CREATININE 0.6 mg/dL (0.55-1.02); GLUCOSE,RANDOM 85 mg/dL (74-106); POTASSIUM 4.2 mmol/L (3.5-5.1); SGOT/AST 26 U/L (15-37); SGPT/ALT 34 U/L (12-78); SODIUM 135 mmol/L (136-145); TOT PROT 7.8 g/dl (6.4-8.2)
[2017-11-09] MEDS ORDERED: cefTRIAXone SODIUM 1 GM VIAL ONE (10:22)
[2017-11-09] MEDS ORDERED: PT OWN MED DRAWER 7, Y5N ONE (10:22)
[2017-11-09] MEDS ORDERED: DEXTROSE 5%-WATER 100 ML IVPB ONE (10:23)
[2017-11-09] MEDS: FLUCONAZOLE 100 MG TABLET (UD) PO SCH (10:50)
[2017-11-09] MEDS: ENOXAPARIN NA (PORCINE) 40 MG/0.4 ML DISP.SYRIN SQ SCH (10:50)
[2017-11-09] MEDS: SODIUM CHLORIDE 1 GM TABLET PO SCH (10:50)
[2017-11-09] MEDS: amLODIPine BESYLATE 5 MG TABLET (FP) PO SCH (10:51)
[2017-11-09] MEDS: PANTOPRAZOLE 40 MG TABLET (FP) PO SCH (10:51)
[2017-11-09] MEDS: CEFTRIAXONE 1 GM in DEXTROSE 5%-WATER 100 ML IVPB SCH (10:52)
--- NOTE | 2017-11-09 11:09 | CONSULT ---
Consult Consult Specialty:: endocrine Referred by:: dr.annabi robledo Reason for Consultation:: hypothyroid / hyponatremia - History of Present Illness Chief Complaint: weak and in pain History of Present Illness: 52-year-old female past medical history of MS (not currently on steroid treatment, trached, with indwelling Perera, quadriplegic) hypertension, sleep disorder, hypothyroidism who presents emergency department by ambulance for increased lethargy and altered mental status with difficulty to arouse and found to have hyponatremia and uti,admitted for possible sepsis - Past Medical History 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 chronic decubitus followed by wound care. neurogenic bladder, chronic perera catheter - Alcohol/Substance Use Hx Alcohol Use: No History of Substance Use: reports: None - Smoking History Smoking history: Never smoked Have you smoked in the past 12 months: No Aproximately how many cigarettes per day: 0 - Social History Usual Living Arrangement: With Parent ADL: Support Services History of Recent Travel: No Home Medications - Allergies Allergies/Adverse Reactions: Allergies Allergy/AdvReac Type Severity Reaction Status Date / Time chloral hydrate Allergy Intermediate Rash Verified 11/06/17 02:41 [Chloral Hydrate] azathioprine [From Imuran] Allergy Rash Verified 11/06/17 02:41 azathioprine sodium Allergy Rash Verified 11/06/17 02:41 [From Imuran] adhesive tape AdvReac Severe sensitivity Verified 11/06/17 02:41 to glue adhesive AdvReac Unknown Verified 11/06/17 02:41 - Home Medications Home Medications: Ambulatory Orders Clonazepam [Klonopin] 0.5 mg PO DAILY 05/08/15 Baclofen 0 mg IVSS ASDIR 02/06/16 Mirtazapine 7.5 mg PO DAILY 02/06/16 Pantoprazole Sodium [Protonix] 40 mg PO DAILY 02/06/16 Ferrous Sulfate [Feosol] 325 mg PO BIDWM #30 bottle MDD 2 05/21/16 Levothyroxine [Synthroid -] 100 mcg PO DAILY@0700 #30 tablet 06/24/16 Sodium Chloride Tablet - 1 gm PO DAILY #30 tablet 06/24/16 hydrALAZINE HCL [Apresoline -] 50 mg PO TID 02/11/17 Amlodipine Besylate [Norvasc -] 5 mg NGT DAILY #30 tablet 02/26/17 Carbamazepine [Tegretol -] 200 mg NGT TID #90 tablet 02/26/17 Family Disease History - Family Disease History Family Disease History: Other: Mother Review of Systems - Review of Systems Constitutional: reports: Lethargy, Weakness Eyes: reports: No Symptoms HENT: reports: Nasal Congestion Neck: reports: Decreased ROM Cardiovascular: reports: Shortness of Breath Respiratory: reports: Cough, Exercise Intolerance, SOB on Exertion Gastrointestinal: reports: Bloating Genitourinary: reports: No Symptoms, Other Breasts: reports: No Symptoms Reported Musculoskeletal: reports: Muscle Cramps, Muscle Weakness Psychiatric: reports: Altered Sleep Pattern Physical Exam Vital Signs: Vital Signs Temperature 99.6 F 11/09/17 06:00 Pulse Rate 89 11/09/17 08:17 Respiratory Rate 20 11/09/17 06:00 Blood Pressure 131/77 11/09/17 06:00 O2 Sat by Pulse Oximetry (%) 98 11/09/17 08:17 Constitutional: Yes: Calm Eyes: Yes: EOM Intact HENT: Yes: Normocephalic Neck: Yes: Trachea Midline Cardiovascular: Yes: Regular Rate and Rhythm Respiratory: Yes: CTA Bilaterally, Tachypnea Gastrointestinal: Yes: Normal Bowel Sounds Musculoskeletal: Yes: Joint Stiffness, Muscle Weakness Neurological: Yes: Alert, Oriented Labs: CBC, BMP 11/09/17 06:30 11/09/17 06:30 Problem List - Problems (1) Hyponatremia Code(s): E87.1 - HYPO-OSMOLALITY AND HYPONATREMIA (2) Ventilator associated pneumonia Code(s): J95.851 - VENTILATOR ASSOCIATED PNEUMONIA (3) Acute on chronic respiratory failure with hypoxia and hypercapnia Code(s): J96.21 - ACUTE AND CHRONIC RESPIRATORY FAILURE WITH HYPOXIA; J96.22 - ACUTE AND CHRONIC RESPIRATORY FAILURE WITH HYPERCAPNIA (4) Adrenal insufficiency Code(s): E27.40 - UNSPECIFIED ADRENOCORTICAL INSUFFICIENCY (5) Altered mental status Code(s): R41.82 - ALTERED MENTAL STATUS, UNSPECIFIED Qualifiers: Altered mental status type: unspecified Qualified Code(s): R41.82 - Altered mental status, unspecified (6) Anemia Code(s): D64.9 - ANEMIA, UNSPECIFIED Qualifiers: Other causes of anemia: other cause, not classified (7) Atelectasis Code(s): J98.11 - ATELECTASIS Assessment/Plan Current Active Problems Hyponatremia (Acute) Ventilator associated pneumonia (Acute) hypothyroidism collin adrenal dependence vs deficient likely fluid imbalance Abnormal Lab Results 11/09/17 11/09/17 06:30 06:30 RBC 3.15 L Hgb 10.0 L Hct 30.5 L MCV 97.1 H Monocytes % 11.9 H Sodium 135 L Alkaline Phosphatase 222 H D Albumin 3.0 L Laboratory Results - last 24 hr 11/09/17 11/09/17 06:30 06:30 WBC 6.2 RBC 3.15 L Hgb 10.0 L Hct 30.5 L MCV 97.1 H MCH 31.9 MCHC 32.9 RDW 15.6 Plt Count 225 D MPV 8.4 Absolute Neuts (auto) 4.1 Neutrophils % 66.0 Lymphocytes % 19.9 D Monocytes % 11.9 H Eosinophils % 1.9 Basophils % 0.3 Nucleated RBC % 0 Sodium 135 L Potassium 4.2 Chloride 98 Carbon Dioxide 28 Anion Gap 9 BUN 9 Creatinine 0.6 Creat Clearance w eGFR > 60 Random Glucose 85 Calcium 9.4 Total Bilirubin 0.4 AST 26 ALT 34 Alkaline Phosphatase 222 H D Total Protein 7.8 Albumin 3.0 L plan: ck cortisol levels ck tsh continue synthroid given hemodynamic stable will hold off steroid
--- NOTE | 2017-11-09 11:39 | DS ---
Physical Examination Vital Signs: Vital Signs Temperature 99.6 F 11/09/17 06:00 Pulse Rate 82 11/09/17 11:26 Respiratory Rate 20 11/09/17 06:00 Blood Pressure 131/77 11/09/17 06:00 O2 Sat by Pulse Oximetry (%) 98 11/09/17 11:26 Constitutional: Yes: Calm Neck: Yes: Other (trach) Cardiovascular: Yes: Regular Rate and Rhythm, S1, S2 Respiratory: Yes: Mechanically Ventilated Gastrointestinal: Yes: Normal Bowel Sounds, Soft Neurological: Yes: Alert Labs: CBC, BMP 11/09/17 06:30 11/09/17 06:30 Discharge Summary Reason For Visit: HYPONATREMIA; PNEUMONIA Current Active Problems Hyponatremia (Acute) Ventilator associated pneumonia (Acute) Hospital Course: PCP: Anne Lopez - Admission Chief Complaint: AMS. Weakness. Hyponatremia. Pneumonia History of Present Illness: Patient is a 52-year-old female past medical history of MS (not currently on steroid treatment, trached, with indwelling Perera, quadriplegic) hypertension, sleep disorder, hypothyroidism who presents emergency department by ambulance for increased lethargy and altered mental status for one day. Mother is at bedside and states that she was trying to talk to the patient however she was unresponsive for about 1-2 minutes earlier this evening. Mother states that patient had not been feeling well yesterday and was not eating. Upon arrival in the emergency department patient is alert and oriented 3. She states that everything hurts. Denies fevers, chills, difficulty breathing, shortness of breath, chest pain, nausea, vomiting and diarrhea. Noted to have NA-127,130. 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: Multiple Sclerosis (quadraplegia), Other (legally blind, trigeminal neuralgia -> baclofen pump) Cardiovascular: Yes: HTN, Hyperlipdemia Pulmonary: Yes: Pneumonia, Previously Intubated, Other Gastrointestinal: Yes: Constipation (chronic) Renal/: Yes: Neurogenic Bladder ( neurogenic bladder, chronic perera catheter) ...LMP: 06/07/12 ...: No Heme/Onc: Yes: Anemia Infectious Disease: Yes: Other (pneumonia, uti treated by urologist) Musculoskeletal: Yes: Other Dermatology: Yes: Other (chronic decubitus followed by wound care) in hospital sodium improved and got iv rocephin for possible pna- cxr shows improvement change to po ceftin for 5 days urine culture contaminant repeat was less to 10,000CFU Microbiology 11/07/17 18:40 Urine - Urine Perera Urine Culture - Final plan to get trach changed on in office by dr avilez Condition: Improved - Instructions Diet, Activity, Other Instructions: fluid restriction to 1000ml per day FU with dr avilez on for trach change Referrals: Anne Lopez MD [Primary Care Provider] - Disposition: [facility]/HOME HEALTH CARE - Home Medications Comprehensive Discharge Medication List: Ambulatory Orders Clonazepam [Klonopin] 0.5 mg PO DAILY 05/08/15 Baclofen 0 mg IVSS ASDIR 02/06/16 Mirtazapine 7.5 mg PO DAILY 02/06/16 Pantoprazole Sodium [Protonix] 40 mg PO DAILY 02/06/16 Ferrous Sulfate [Feosol] 325 mg PO BIDWM #30 bottle MDD 2 05/21/16 Levothyroxine [Synthroid -] 100 mcg PO DAILY@0700 #30 tablet 06/24/16 Sodium Chloride Tablet - 1 gm PO DAILY #30 tablet 06/24/16 hydrALAZINE HCL [Apresoline -] 50 mg PO TID 02/11/17 Amlodipine Besylate [Norvasc -] 5 mg NGT DAILY #30 tablet 02/26/17 Carbamazepine [Tegretol -] 200 mg NGT TID #90 tablet 02/26/17
[2017-11-09] MEDS: FERROUS SO4 325 MG TABLET (FP) PO SCH (12:10)
[2017-11-09 14:12] VITALS: BP 149/83
[2017-11-09] MEDS: carBAMazepine 100 MG TAB.CHEW PO SCH (14:14)
[2017-11-09 14:30] VITALS: PULSE 86
== END 2017-11-09 15:32 | disposition home health service (06) | DRG 208 ==
LOC: JER 02:17 → JERBED 10:03 → J5S 11:30
PROVIDERS: ADMIT Family Medicine; ATTEND Family Medicine
PROC: 5A1945Z Respiratory Ventilation, 24-96 Consecutive Hours (ICD-10-PCS; principal; 2017-11-06)
DX: J95.851 Ventilator associated pneumonia (principal); L89.324 Pressure ulcer of left buttock, stage 4; L89.314 Pressure ulcer of right buttock, stage 4; G93.41 Metabolic encephalopathy; R53.2 Functional quadriplegia; E87.1 Hypo-osmolality and hyponatremia; E27.40 Unspecified adrenocortical insufficiency; J96.10 Chronic respiratory failure, unspecified whether with hypoxia or hypercapnia; J98.11 Atelectasis; I10 Essential (primary) hypertension; E03.9 Hypothyroidism, unspecified; Y83.8 Other surgical procedures as the cause of abnormal reaction of the patient, or of later complication, without mention of misadventure at the time of the procedure; G35 Multiple sclerosis; H54.8 Legal blindness, as defined in USA; G50.0 Trigeminal neuralgia; N31.9 Neuromuscular dysfunction of bladder, unspecified; R68.0 Hypothermia, not associated with low environmental temperature; D64.9 Anemia, unspecified; L89.152 Pressure ulcer of sacral region, stage 2
CPT/HCPCS: 36415; 70450-TC; 71045-TC-FY; 80048; 80053; 81003; 81015; 82533; 82550; 83605; 83930; 83935; 84484; 84703; 85025; 85610; 87040; 87070; 87077; 87086; 87186; 87205; 93005; 93010; 94002; 99285-25; J0131; J0475; J7030

== ENCOUNTER 2018-01-03 15:30 | Inpatient (IN) | payer OTHER ==
--- NOTE | 2018-01-03 15:53 | PDOC ---
History of Present Illness - General Stated Complaint: PCP SENT Time Seen by Provider: 01/03/18 15:42 - History of Present Illness Initial Comments: 52yo F with PMH of multiple sclerosis (trached, indwelling perera, quadriplegic, baclofen pump), HTN, hypothyroidism, HLD, legally blind sent in by her primary care provider, Dr. Lopez, for low sodium level. She has had hyponatremia in the past. Patient has felt weak for the past week, but has no other acute complaints: no fever, chills, chest pain, shortness of breath, abdominal pain, nausea, vomiting, or headache. Past History - Past Medical History Allergies/Adverse Reactions: Allergies Allergy/AdvReac Type Severity Reaction Status Date / Time chloral hydrate Allergy Intermediate Rash Verified 01/03/18 16:02 [Chloral Hydrate] azathioprine [From Imuran] Allergy Rash Verified 01/03/18 16:02 azathioprine sodium Allergy Rash Verified 01/03/18 16:02 [From Imuran] adhesive tape AdvReac Severe sensitivity Verified 01/03/18 16:02 to glue adhesive AdvReac Unknown Verified 01/03/18 16:02 Home Medications: Ambulatory Orders Levothyroxine [Synthroid -] 100 mcg PO DAILY@0700 #30 tablet 06/24/16 Sodium Chloride Tablet - 1 gm PO DAILY #30 tablet 06/24/16 hydrALAZINE HCL [Apresoline -] 50 mg PO TID 02/11/17 Carbamazepine 100 mg PO TID 01/03/18 Carbamazepine [Tegretol -] 100 mg PO TID 01/03/18 Furosemide [Lasix -] 20 mg PO DAILY 01/03/18 Loratadine 10 mg PO DAILY 01/03/18 Metoprolol Succinate 50 mg PO BID 01/03/18 Potassium Chloride [K-Dur -] 20 meq PO DAILY 01/03/18 Sertraline HCl 50 mg PO DAILY 01/03/18 Anemia: No Asthma: No Cancer: No Cardiac Disorders: No CVA: No COPD: No CHF: No DVT: No Dementia: (M.S,TRIG.NEUROLAGIA) Diabetes: No GI Disorders: Yes Disorders: Yes (baclofen implant) HTN: Yes Hypercholesterolemia: No Liver Disease: No Seizures: Yes Thyroid Disease: No - Surgical History Abdominal Surgery: No Appendectomy: No Cardiac Surgery: No Cholecystectomy: No GI Surgery: (BACLOFEN IMPLANT) Lung Surgery: Yes (TRACH) Neurologic Surgery: No Orthopedic Surgery: No - Immunization History Immunization Up to Date: Yes - Suicide/Smoking/Psychosocial Hx Smoking Status: No Smoking History: Never smoked Have you smoked in the past 12 months: No Number of Cigarettes Smoked Daily: 0 Cigars Per Day: 0 Hx Alcohol Use: No Drug/Substance Use Hx: No Substance Use Type: None Hx Substance Use Treatment: No Review of Systems - Review of Systems Comments:: Constitutional: no fever, no chills HEENT: no throat pain, no dysphagia Cardiovascular: no chest pain, no palpitations Respiratory: no cough, no shortness of breath Gastrointestinal: no abdominal pain, no nausea, no vomiting Genitourinary: no dysuria, no frequency Musculoskeletal: no myalgia, no arthralgia Skin: +ulcers, no itching Neurologic: no headache, no dizziness *Physical Exam - Physical Exam Comments: General: Awake, alert, and fully oriented, in no acute distress Head: no signs of trauma Eyes: EOMI, sclera anicteric ENT: Dry mucus membranes Neck: Normal ROM, supple Lungs: Tracheostomy present, poor air entry Cardio: Regular rhythm, S1 and S2 present Abdomen: Soft, nontender. No guarding, no rebound, no masses Extremities: Distal pulses present SKIN: Warm, Dry, normal turgor Neurologic: Quadriplegic, slow speech ED Treatment Course - LABORATORY CBC & Chemistry Diagram: 01/03/18 16:56 01/03/18 16:58 Medical Decision Making - Medical Decision Making 52yo F with PMH of multiple sclerosis (trached, indwelling perera, quadriplegic, baclofen pump), HTN, hypothyroidism, HLD, legally blind sent in by her primary care provider, Dr. Lopez, for low sodium level. -Labs, CXR, EKG -1LNS -Suctioned tracheostomy -Discussed case with Dr. Lopez who reported that patient's sodium level was 119 -Patient found to be bradycardic with HR 38; pads and monitor in place -0.5 atropine given, rate increased to 55, repeat EKG ordered 01/03/18 16:53 Vn=133 EKG at 17:05, rate 38, QTc 456, sinus bradycardia EKG at 18:05, rate 45, WTc 484 sinus bradycardia Discussed case with Dr. Duran who accepted patient for admission under attending, Dr. Lopez Pagerubi cardiology for recommendations 01/03/18 18:[address] Allen, cardiology, who recommends Dopamine 5mcg/kg/min 01/03/18 19:06 *DC/Admit/Observation/Transfer Diagnosis at time of Disposition: Hyponatremia, Bradycardia - Discharge Dispostion Condition at time of disposition: Guarded Decision to Admit order: Yes - Referrals Referrals: Anne Lopez MD [Primary Care Provider] - - Patient Instructions - Post Discharge Activity
[2018-01-03] MEDS ORDERED: SODIUM CHLORIDE 1,000 ML IV STA ×2 (17:04→19:53)
[2018-01-03] MEDS ORDERED: ATROPINE SO4 0.4 MG/1 ML VIAL IVPUSH ONE (17:11)
[2018-01-03 17:12] LABS: BASO % 0.7 % (0-2.0); EOS % 0.7 % (0-4.5); HEMATOCRIT 31.2 % (32.4-45.2); HEMOGLOBIN 10.4 GM/dL (10.7-15.3); MCH 31.8 pg (25.7-33.7); MCHC 33.2 g/dl (32.0-36.0); MEAN CELL VOLUME 95.6 fl (80-96); MEAN PLT VOLUME 9.7 fl (7.5-11.1); MONO % 5.1 % (3.8-10.2); NEUT % 82.5 % (42.8-82.8); PLATELET COUNT 128 K/MM3 (134-434); RBC 3.26 M/mm3 (3.60-5.2); RDW 14.9 % (11.6-15.6); WHITE BLOOD COUNT 6.3 K/mm3 (4.0-10.0)
[2018-01-03] MEDS ORDERED: ATROPINE SULFATE 1 MG/10 ML DISP.SYRIN ONE (17:15)
[2018-01-03 17:33] LABS: INR 1.07 (0.83-1.09); PROTHROMBIN TIME (PATIENT) 12.6 SEC (9.7-13.0)
[2018-01-03 17:37] LABS: ALBUMIN 2.9 g/dl (3.4-5.0); ALK PHOS 216 U/L (45-117); ANION GAP 7 MMOL/L (8-16); BILIRUBIN,TOTAL 0.1 mg/dL (0.2-1); BLOOD UREA NITROGEN 13 mg/dL (7-18); CALCIUM 9.1 mg/dL (8.5-10.1); CHLORIDE 84 mmol/L (98-107); CO2 32 mmol/L (21-32); CREATININE 0.5 mg/dL (0.55-1.3); GLUCOSE,RANDOM 102 mg/dL (74-106); POTASSIUM 3.5 mmol/L (3.5-5.1); SGOT/AST 36 U/L (15-37); SGPT/ALT 39 U/L (13-61); SODIUM 124 mmol/L (136-145); TOT PROT 7.2 g/dl (6.4-8.2)
--- NOTE | 2018-01-03 17:52 | PDOC ---
Attending Attestation - Resident Resident Name: Anaid Barahonath - ED Attending Attestation I have performed the following: I have examined & evaluated the patient, The case was reviewed & discussed with the resident, I agree w/resident's findings & plan, Exceptions are as noted - HPI HPI: 01/03/18 17:51 This 52-year-old female was referred from Dr. MOODY 'S office for hyponatremia. Patient has multiple sclerosis and has a trach and G-tube. 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
[2018-01-03 18:14] LABS: URINE APPEARANCE CLEAR; URINE BILIRUBIN NEGATIVE (<2.0 mg/dL); URINE COLOR STRAW; URINE GLUCOSE (UA) 3+ (NEGATIVE); URINE KETONE NEGATIVE (NEGATIVE); URINE LEUK ESTERASE NEGATIVE (NEGATIVE); URINE NITRITE NEGATIVE (NEGATIVE); URINE PROTEIN NEGATIVE (NEGATIVE); URINE UROBILINOGEN NEGATIVE mg/dL (0.2-1.0)
[2018-01-03] MEDS ORDERED: DOPAMINE 400 MG/D5W - 400,000 MCG/250 ML INFUS.BAG IVPB SCH (19:15)
[2018-01-03 19:29] LABS: OSMOLALITY,SERUM 263 mosm/kg (278-305)
[2018-01-03] MEDS ORDERED: DOPAMINE 400 MG/D5W - 400,000 MCG/250 ML INFUS.BAG IVPB ONE (19:29)
--- NOTE | 2018-01-03 19:52 | HP ---
Admitting History and Physical - Primary Care Physician PCP: Anne Lopez - Admission Chief Complaint: Abnormal Lab Value- Low Na History of Present Illness: This is a 52 y/o woman with a PMHx of MS,( Trach, Perera, Quadriplegia, Baclofen Pump), HTN, HLD, Hypothyroidism, Trigeminal Neuralgia, Legally Blind. Who presents to the ED with her mother sent in by her PMD for Hyponatremia. Na in outpatient 119. On arrival to ED patient was found to be in bradycardia 38. She was given atropine 0.5mg IV and placed on pacer pads and started on a Dopamine Infusion, per cardiology recommendation. At bedside patient is lethargic, her mother who is at bedside, reports that the patient had routine bloodwork and was notified by her PMD for admission. Per the mother, the patient has been under her care, and had no complaints. The mother denies patient having fever, chills, cough, dizziness, DAI, CP, palpitations, AP, N/V/D, constipation. 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: Multiple Sclerosis (quadraplegia), Other (legally blind, trigeminal neuralgia -> baclofen pump) Cardiovascular: Yes: HTN, Hyperlipdemia Pulmonary: Yes: Pneumonia, Previously Intubated, Other Gastrointestinal: Yes: Constipation (chronic) Renal/: Yes: Neurogenic Bladder ( neurogenic bladder, chronic perera catheter) ...LMP: 06/07/12 Heme/Onc: Yes: Anemia Infectious Disease: Yes: Other (pneumonia, uti treated by urologist) Musculoskeletal: Yes: Other (Quadraplegia) Dermatology: Yes: Other (chronic decubitus followed by wound care) - Past Surgical History Additional Past Surgical History: Tracheotomy - Smoking History Smoking history: Never smoked Have you smoked in the past 12 months: No Aproximately how many cigarettes per day: 0 - Alcohol/Substance Use Hx Alcohol Use: No History of Substance Use: reports: None - Social History ADL: Support Services History of Recent Travel: No Home Medications - Allergies Allergies/Adverse Reactions: Allergies Allergy/AdvReac Type Severity Reaction Status Date / Time chloral hydrate Allergy Intermediate Rash Verified 01/03/18 16:02 [Chloral Hydrate] azathioprine [From Imuran] Allergy Rash Verified 01/03/18 16:02 azathioprine sodium Allergy Rash Verified 01/03/18 16:02 [From Imuran] adhesive tape AdvReac Severe sensitivity Verified 01/03/18 16:02 to glue adhesive AdvReac Unknown Verified 01/03/18 16:02 - Home Medications Home Medications: Ambulatory Orders Levothyroxine [Synthroid -] 100 mcg PO DAILY@0700 #30 tablet 06/24/16 Sodium Chloride Tablet - 1 gm PO DAILY #30 tablet 06/24/16 hydrALAZINE HCL [Apresoline -] 50 mg PO TID 02/11/17 Carbamazepine 100 mg PO TID 01/03/18 Carbamazepine [Tegretol -] 100 mg PO TID 01/03/18 Furosemide [Lasix -] 20 mg PO DAILY 01/03/18 Loratadine 10 mg PO DAILY 01/03/18 Metoprolol Succinate 50 mg PO BID 01/03/18 Potassium Chloride [K-Dur -] 20 meq PO DAILY 01/03/18 Sertraline HCl 50 mg PO DAILY 01/03/18 Family Disease History - Family Disease History Family Disease History: Diabetes: Sister, Other: Mother Review of Systems - Review of Systems Constitutional: reports: No Symptoms Eyes: reports: No Symptoms HENT: reports: No Symptoms Neck: reports: No Symptoms Cardiovascular: reports: No Symptoms Respiratory: reports: No Symptoms Gastrointestinal: reports: No Symptoms Genitourinary: reports: No Symptoms Breasts: reports: No Symptoms Reported Musculoskeletal: reports: No Symptoms Integumentary: reports: No Symptoms Neurological: reports: No Symptoms Endocrine: reports: No Symptoms Hematology/Lymphatic: reports: No Symptoms Psychiatric: reports: No Symptoms Physical Examination Vital Signs: Vital Signs Temperature 97.4 F L 01/03/18 15:55 Pulse Rate 40 L 01/03/18 19:20 Respiratory Rate 16 01/03/18 17:25 Blood Pressure 87/35 L 01/03/18 19:20 O2 Sat by Pulse Oximetry (%) 97 01/03/18 15:55 Constitutional: Yes: No Distress, Calm, Thin Eyes: Yes: Conjunctiva Clear, PERRL HENT: Yes: WNL, Atraumatic, Normocephalic Neck: Yes: WNL, Supple, Trachea Midline, Other (Trach) Cardiovascular: Yes: Bradycardia, S1, S2 Respiratory: Yes: WNL, Regular, CTA Bilaterally Gastrointestinal: Yes: WNL, Normal Bowel Sounds, Soft Renal/: Yes: Perera Present (from home) Breast(s): Yes: WNL Edema: No Peripheral Pulses WNL: Yes Neurological: Yes: Lethargy Labs: CBC, BMP 01/03/18 16:56 01/03/18 16:58 Imaging - Results Chest X-ray: Image Reviewed EKG: Image Reviewed Problem List - Problems (1) Bradycardia Code(s): R00.1 - BRADYCARDIA, UNSPECIFIED (2) Hyponatremia Code(s): E87.1 - HYPO-OSMOLALITY AND HYPONATREMIA (3) Acute on chronic respiratory failure with hypoxia and hypercapnia Code(s): J96.21 - ACUTE AND CHRONIC RESPIRATORY FAILURE WITH HYPOXIA; J96.22 - ACUTE AND CHRONIC RESPIRATORY FAILURE WITH HYPERCAPNIA (4) Hx of multiple sclerosis Code(s): Z86.69 - PERSONAL HISTORY OF DIS OF THE NERVOUS SYS AND SENSE ORGANS (5) Decubital ulcer Code(s): L89.90 - PRESSURE ULCER OF UNSPECIFIED SITE, UNSPECIFIED STAGE (6) Sacral decubitus ulcer, stage IV Code(s): L89.154 - PRESSURE ULCER OF SACRAL REGION, STAGE 4 (7) Lethargy Code(s): R53.83 - OTHER FATIGUE (8) Tracheostomy dependence Code(s): Z93.0 - TRACHEOSTOMY STATUS (9) Functional quadriplegia Code(s): R53.2 - FUNCTIONAL QUADRIPLEGIA (10) Neurogenic bladder Code(s): N31.9 - NEUROMUSCULAR DYSFUNCTION OF BLADDER, UNSPECIFIED (11) Presence of intrathecal baclofen pump Code(s): Z98.89 - OTHER SPECIFIED POSTPROCEDURAL STATES * DO NOT USE * (12) Tracheostomy care Code(s): Z43.0 - ENCOUNTER FOR ATTENTION TO TRACHEOSTOMY (13) Trigeminal neuralgia Code(s): G50.0 - TRIGEMINAL NEURALGIA Assessment/Plan This is a 52 y/o woman with PMHx of MS, Tracheostomy, Quadriplegia, Baclofen Pump, HTN, HLD, Hypothyroidism, Trigemenial Neuralgia, Legally Blind. Admitted to Telemetry for Bradycardia, Hyponatremia for further evaluation of their emergent condition. Plan: Will admit to Telemetry Continue cardiac monitoring EKG- marked SB with 1st degree AV block, LVH with QRS widening Pacer Pads Appreciate Cardiology consult Continue Dopamine Drip titration HR > 50 Maintain MAP > 65 Serial Enzymes Monitor CBC, BMP Hold all BP medications secondary to Bradycardia, Hypotension Vent Settings A/C 450/14/50%/5 for HS Functional Quadriplegia- Likely secondary to MS, Turn Q2h, Mendez Lift prn, Fall Precautions Continue Levothyroxine FEN- PO fluids as tolerated, replete lytes prn, Low Na Diet as tolerated DVT ppx- SCDs, Heparin SQ Code Status: Full Code Dispo: Requires Inpatient Care Visit type - Emergency Visit Emergency Visit: Yes ED Registration Date: 01/03/18 Care time: The patient presented to the Emergency Department on the above date and was hospitalized for further evaluation of their emergent condition. - New Patient This patient is new to me today: Yes Date on this admission: 01/03/18 - Critical Care Critical Care patient: No
[2018-01-03 22:46] LABS: ANION GAP 11 MMOL/L (8-16); BLOOD UREA NITROGEN 12 mg/dL (7-18); CHLORIDE 88 mmol/L (98-107); CO2 28 mmol/L (21-32); CREATININE 0.4 mg/dL (0.55-1.3); GLUCOSE,RANDOM 108 mg/dL (74-106); SODIUM 127 mmol/L (136-145)
[2018-01-04] MEDS ORDERED: KCL 10 MEQ IVPB 10 MEQ/100 ML INFUS.BAG IVPB ONE ×2 (00:31→03:16)
[2018-01-04] MEDS: KCL 10 MEQ IVPB 10 MEQ/100 ML INFUS.BAG IVPB SCH ×2 (00:53→03:00)
[2018-01-04 01:27] LABS: MAGNESIUM 1.8 mg/dL (1.8-2.4)
[2018-01-04 06:04] LABS: BASO % 0.2 % (0-2.0); EOS % 0.1 % (0-4.5); HEMATOCRIT 33.2 % (32.4-45.2); LYMPH % 2.9 % (8-40); MCH 31.3 pg (25.7-33.7); MEAN CELL VOLUME 94.9 fl (80-96); MEAN PLT VOLUME 8.8 fl (7.5-11.1); MONO % 2.1 % (3.8-10.2); NEUT % 94.7 % (42.8-82.8); PLATELET COUNT 155 K/MM3 (134-434); RDW 14.8 % (11.6-15.6); WHITE BLOOD COUNT 11.8 K/mm3 (4.0-10.0)
[2018-01-04] MEDS ORDERED: DOPAMINE 400 MG/D5W - 400,000 MCG/250 ML INFUS.BAG IVPB ONE (06:25)
[2018-01-04 06:40] LABS: ALK PHOS 226 U/L (45-117); ANION GAP 10 MMOL/L (8-16); BILIRUBIN,TOTAL 0.2 mg/dL (0.2-1); BLOOD UREA NITROGEN 11 mg/dL (7-18); CALCIUM 8.8 mg/dL (8.5-10.1); CHLORIDE 92 mmol/L (98-107); CO2 29 mmol/L (21-32); CREATININE 0.4 mg/dL (0.55-1.3); GLUCOSE,RANDOM 85 mg/dL (74-106); MAGNESIUM 1.7 mg/dL (1.8-2.4); PHOSPHOROUS 2.8 mg/dL (2.5-4.9); POTASSIUM 3.6 mmol/L (3.5-5.1); SGOT/AST 31 U/L (15-37); SGPT/ALT 40 U/L (13-61); SODIUM 131 mmol/L (136-145); TOT PROT 7.4 g/dl (6.4-8.2)
[2018-01-04] MEDS: LEVOTHYROXINE NA 100 MCG TABLET (FP) PO SCH ×2 (10:41→11:24)
[2018-01-04 10:43] LABS: ANISOCYTOSIS 1+; MACROCYTOSIS 1+
[2018-01-04 10:56] LABS: PLATELET ESTIMATE ADEQUATE
[2018-01-04] MEDS ORDERED: SODIUM CHLORIDE 1 GM TABLET PO SCH (11:00)
--- NOTE | 2018-01-04 11:00 | CONSULT ---
Consult - text type - Consultation Consultation Note: Renal consult for Hyponatremia This is a 52 year old woman with hx of MS, Hyponatremia from SIADH, Resp failure with trach collar, recurrent UTI's who presented from home with weakness and lethargy and found to have Na of 124. Pt was on salt tabs at home. No diuretics being used. Was being tx for UTI recently. No fever noted. No N/V/ D. Case discussed with sister who is at the bedside. PMhx: as above Allergies: NKDA Family Hx: NC Social hx: No T/A/D ROS: as per HPI Home Medications Medication Instructions Recorded Levothyroxine [Synthroid -] 100 mcg PO DAILY@0700 #30 tablet 06/24/16 Sodium Chloride Tablet - 1 gm PO DAILY #30 tablet 06/24/16 hydrALAZINE HCL [Apresoline -] 50 mg PO TID 02/11/17 Carbamazepine 100 mg PO TID 01/03/18 Carbamazepine [Tegretol -] 100 mg PO TID 01/03/18 Furosemide [Lasix -] 20 mg PO DAILY 01/03/18 Loratadine 10 mg PO DAILY 01/03/18 Metoprolol Succinate 50 mg PO BID 01/03/18 Potassium Chloride [K-Dur -] 20 meq PO DAILY 01/03/18 Sertraline HCl 50 mg PO DAILY 01/03/18 Vital Signs Temperature 98.4 F 01/04/18 08:15 Pulse Rate 63 01/04/18 10:44 Respiratory Rate 20 01/04/18 10:44 Blood Pressure 130/60 01/04/18 10:44 O2 Sat by Pulse Oximetry (%) 99 01/04/18 10:44 Intake & Output 01/01/18 01/02/18 01/03/18 01/04/18 23:59 23:59 23:59 23:59 Weight 72.575 kg NAD awake and alert Neck supple, no JVD RRR, no M/R CTA, no rales or wheeze soft NT/ND No LE edema, clubbing or cyanosis perera in place CBC, BMP 01/04/18 05:18 01/04/18 05:18 Laboratory Tests 01/04/18 05:18 Calcium 8.8 Phosphorus 2.8 Magnesium 1.7 L Albumin 3.0 L Laboratory Tests 01/03/18 01/03/18 01/04/18 16:58 21:50 05:18 Sodium 124 L 127 L 131 L Current Medications Carbamazepine (Tegretol -) 100 mg PO TID CATHERINE Carbamazepine (Tegretol -) 100 mg PO TID CATHERINE Hydralazine HCl (Apresoline -) [address] [facility] Dopamine HCl/Dextrose (Dopamine 400 Mg/D5w -) 400,000 mcg in 250 mls @ 13.608 mls/hr IVPB TITR CATHERINE; Protocol Last Titration: 01/03/18 21:59 Dose: 10 mcg/kg/min, 27.216 mls/hr Levothyroxine Sodium (Synthroid -) 100 mcg PO DAILY@0700 CATHERINE Last Admin: 01/04/18 10:41 Dose: 100 mcg Loratadine (Claritin -) [address] [facility] Metoprolol Succinate (Toprol Xl -) [address] [facility] Potassium Chloride (K-Dur -) [address] [facility] Sertraline HCl (Zoloft -) [address] [facility] Sodium Chloride (Sodium Chloride Tablet -) [address] [facility] 52 year old woman with hx of MS, Hyponatremia from SIADH, Resp failure with trach collar, recurrent UTI's who presented from home with weakness and lethargy and found to have Na of 124 #Acute on Chronic Hyponatremia (likely hypovolemic hyponatermia) #Hypotension/Bradycardia #Suspected UTI #MS Serum na improving with IV NS, indicating likely hypovolemic hyponatremia Continue gentle IVF hydration with NS at 75cc per hour On dopamine gtt for hypotension now, titrate as needed UA is not indicative of infection but was on recent Abx Consider empiric Abx pending outpatient cx report Supportive care Vent support at night Thank you Will follow Tyshawn Deo DO
--- NOTE | 2018-01-04 11:12 | PN ---
Progress Note, Physician Chief Complaint: Hyponatremia Lethargy History of Present Illness: NAD Pt sister Erinn at bedside pt alert and oriented although lethargic Was on Dopamine drip for bradycardia, was also given atropine Now holding vitals well Seen by Nephrology On NaCl @75 cc/hr - Current Medication List Current Medications: Active Medications Carbamazepine (Tegretol -) 100 mg PO TID CATHERINE Carbamazepine (Tegretol -) 100 mg PO TID CATHERINE Hydralazine HCl (Apresoline -) 50 mg PO TID CATHERINE Sodium Chloride (Normal Saline -) 1,000 mls @ 75 mls/hr IV ASDIR CATHERINE Levothyroxine Sodium (Synthroid -) 100 mcg PO DAILY@0700 CAHTERINE Last Admin: 01/04/18 10:41 Dose: 100 mcg Loratadine (Claritin -) 10 mg PO DAILY CATHERINE Metoprolol Succinate (Toprol Xl -) 50 mg PO BID CATHERINE Potassium Chloride (K-Dur -) 20 meq PO DAILY CATHERINE Sertraline HCl (Zoloft -) 50 mg PO DAILY CATHERINE Sodium Chloride (Sodium Chloride Tablet -) 1 gm PO BID CATHERINE - Objective Vital Signs: Vital Signs Temperature 98.4 F 01/04/18 08:15 Pulse Rate 63 01/04/18 10:44 Respiratory Rate 20 01/04/18 10:44 Blood Pressure 130/60 01/04/18 10:44 O2 Sat by Pulse Oximetry (%) 99 01/04/18 10:44 Constitutional: Yes: Well Nourished, No Distress, Calm Cardiovascular: Yes: Regular Rate and Rhythm Respiratory: Yes: Regular, Rhonchi (diffuse) Gastrointestinal: Yes: Normal Bowel Sounds, Soft Genitourinary: Yes: Raza Present Musculoskeletal: Yes: Other (baseline) Extremities: Yes: WNL Edema: No Peripheral Pulses WNL: Yes Neurological: Yes: Alert, Oriented, Lethargy Psychiatric: Yes: Alert, Oriented Labs: CBC, BMP 01/04/18 05:18 01/04/18 05:18 INR, PTT INR 1.07 (0.83-1.09) 01/03/18 16:56 Problem List - Problems (1) Bradycardia Assessment/Plan: -Resolved -received atropine and dopamine in the ED -Cardiology consult Code(s): R00.1 - BRADYCARDIA, UNSPECIFIED (2) Hyponatremia Assessment/Plan: -Much improved. -Pt was seen by me on Wednesday, repeat Na that day was 119 mg/dl because she was taking her NaCl tabs only once a day instead of BID -Now at 131 -Seen by Nephrology -Also on NaCl @ 75cc/hr -monitor daily labs Code(s): E87.1 - HYPO-OSMOLALITY AND HYPONATREMIA (3) Altered mental status Assessment/Plan: -2/2 to metabolic encephalopathy -Neurology consult Code(s): R41.82 - ALTERED MENTAL STATUS, UNSPECIFIED Qualifiers: Altered mental status type: unspecified Qualified Code(s): R41.82 - Altered mental status, unspecified (4) Bacteriuria Assessment/Plan: -was started on Cipro on 12/31/17 for possible UTI -UA/UC -On IV zosyn, has had Pseudomonas Aerugenosa in UC in the past -ID consult Code(s): N39.0 - URINARY TRACT INFECTION, SITE NOT SPECIFIED (5) Chronic hypercapnic respiratory failure Assessment/Plan: -Tracheostomy -Vent at bedtime -Pulmonary consult -CXR unremarkable Code(s): J96.12 - CHRONIC RESPIRATORY FAILURE WITH HYPERCAPNIA (6) Functional quadriplegia Code(s): R53.2 - FUNCTIONAL QUADRIPLEGIA (7) Hx of multiple sclerosis Code(s): Z86.69 - PERSONAL HISTORY OF DIS OF THE NERVOUS SYS AND SENSE ORGANS (8) Metabolic encephalopathy Code(s): G93.41 - METABOLIC ENCEPHALOPATHY (9) Sepsis Assessment/Plan: -BC/UC/SC pending -ID consult -IV abx -Alyssa hugger to keep rectal temp > 95.0 F Code(s): A41.9 - SEPSIS, UNSPECIFIED ORGANISM Qualifiers: Sepsis type: sepsis due to unspecified organism Qualified Code(s): A41.9 - Sepsis, unspecified organism (10) Hypothermia Assessment/Plan: -2/2 to sepsis -Stage 1 -Alyssa hugger to keep rectal temp above 95.0 F Code(s): T68.XXXA - HYPOTHERMIA, INITIAL ENCOUNTER Qualifiers: Encounter type: initial encounter Qualified Code(s): T68.XXXA - Hypothermia , initial encounter Assessment/Plan See problem list Dispo: admit to Med-Surg for further treatment and evaluation
[2018-01-04] MEDS: SODIUM CHLORIDE 1,000 ML IV SCH (11:24)
[2018-01-04] MEDS ORDERED: PIPERACILLIN/TAZOB 4.5 GM 4.5 GM in DEXTROSE 5%-WATER 100 ML IVPB SCH (11:30)
[2018-01-04] MEDS ORDERED: PIPERACILLIN/TAZOB 4.5 GM 4.5 GM/100 ML BAG IVPB ONE (11:34)
--- NOTE | 2018-01-04 11:39 | CON.CARD ---
Consult Consult Specialty:: Cardiology Referred by:: Dr. Lopez Reason for Consultation:: bradycardia - History of Present Illness Chief Complaint: weakness, fatigue History of Present Illness: 52 year old woman with pmh advanced MS s/p trach, PEG, perera, on baclofen pump, htn, hld hypothyroid, trigeminal neuralgia admitted with weakness, fatigue found to be hyponatremic with sinus bradycardia inititally in the 30sbpm. Pt was seen and examined in the ER in [place]. currently on Dopamine gtt with pacer pads on standby. No reported palpitations, lightheadedness, dizziness, syncope, or near syncope. No reported chest pain, sob, pnd, orthopnea, or LE edema. 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 chronic decubitus followed by wound care. neurogenic bladder, chronic perera catheter - Alcohol/Substance Use Hx Alcohol Use: No History of Substance Use: reports: None - Smoking History Smoking history: Never smoked Have you smoked in the past 12 months: No Aproximately how many cigarettes per day: 0 - Social History Usual Living Arrangement: With Parent ADL: Support Services History of Recent Travel: No Home Medications - Allergies Allergies/Adverse Reactions: Allergies Allergy/AdvReac Type Severity Reaction Status Date / Time chloral hydrate Allergy Intermediate Rash Verified 01/03/18 16:02 [Chloral Hydrate] azathioprine [From Imuran] Allergy Rash Verified 01/03/18 16:02 azathioprine sodium Allergy Rash Verified 01/03/18 16:02 [From Imuran] adhesive tape AdvReac Severe sensitivity Verified 01/03/18 16:02 to glue adhesive AdvReac Unknown Verified 01/03/18 16:02 - Home Medications Home Medications: Ambulatory Orders Levothyroxine [Synthroid -] 100 mcg PO DAILY@0700 #30 tablet 06/24/16 Sodium Chloride Tablet - 1 gm PO DAILY #30 tablet 06/24/16 hydrALAZINE HCL [Apresoline -] 50 mg PO TID 02/11/17 Carbamazepine 100 mg PO TID 01/03/18 Carbamazepine [Tegretol -] 100 mg PO TID 01/03/18 Furosemide [Lasix -] 20 mg PO DAILY 01/03/18 Loratadine 10 mg PO DAILY 01/03/18 Metoprolol Succinate 50 mg PO BID 01/03/18 Potassium Chloride [K-Dur -] 20 meq PO DAILY 01/03/18 Sertraline HCl 50 mg PO DAILY 01/03/18 Family Disease History - Family Disease History Family Disease History: Diabetes: Sister, Other: Mother Review of Systems - Review of Systems Constitutional: reports: Lethargy, Malaise, Weakness. denies: No Symptoms, Chills, Diaphoresis, Fever, Loss of Appetite, Night Sweats, Unintentional Wgt. Loss, Other Eyes: denies: No Symptoms, Blind Spots, Blurred Vision, Double Vision, Eye Pain , Floaters, Photophobia, Recent Change in Vision, Other HENT: denies: No Symptoms, Difficult Swallowing, Ear Discharge, Ear Pain, Epistaxis, Gingival Bleeding, Hearing Loss, Mouth Swelling, Nasal Congestion, Ocular Prosthesis, Throat Pain, Toothache, Ringing in Ears, Other Neck: denies: No Symptoms, Decreased ROM, Lumps, Pain on Movement, Stiffness, Swollen Glands, Tenderness, Other Cardiovascular: denies: No Symptoms, Chest Pain, Edema, Palpitations, Shortness of Breath, Other Respiratory: denies: No Symptoms, Cough, Exercise Intolerance, Hemoptysis, Orthopnea, PND, Snoring, SOB, SOB on Exertion, Wheezing, Other Gastrointestinal: denies: No Symptoms, Abdominal Pain, Bloating, Constipation, Diarrhea, Dysphagia, Indigestion, Melena, Nausea, Rectal Bleeding, Vomiting, Vomiting Blood, Other Genitourinary: denies: No Symptoms, Burning, Discharge, Dysuria, Flank Pain, Frequency, Hematuria, Incontinence, Lesions, Menses, Pain, Testicular Mass, Testicular Pain, Testicular Swelling, Urgency, Vaginal Bleeding, Other Breasts: denies: No Symptoms Reported, See HPI, Breast Implants, Discharge from Nipple, Lumps, Pain, Skin Changes, Other Musculoskeletal: reports: Muscle Weakness. denies: No Symptoms, Back Pain, Crepitus, Decreased ROM, Extremity Pain, Joint Pain, Joint Swelling, Muscle Pain , Muscle Cramps, Other Integumentary: denies: No Symptoms, Blister, Bruising, Change in Color, Eczema, Erythema, Incision, Lesions, Lump, Pallor, Pruritis, Rash, Wound, Other Neurological: reports: Change in LOC, Weakness. denies: No Symptoms, Change in Speech, Confusion, Dizziness, Headache, Incoordination, Numbness, Parasthesia, Pre-Existing Deficit, Seizure, Syncope, Tremors, Unsteady Gait, Other Endocrine: denies: No Symptoms, Excessive Sweating, Flushing, Increased Hunger, Increased Thirst, Intolerance to Cold, Intolerance to Heat, Unexplained Weight Gain, Unexplained Weight Loss, Other Hematology/Lymphatic: denies: No Symptoms, Easily Bruised, Excessive Bleeding, Swollen Glands, Other Psychiatric: denies: No Symptoms, Altered Sleep Pattern, Anxiety, Depression, Hallucinations, Panic, Paranoia, Suicidal, Other - Risk Factors Known Risk Factors: Yes: Hypercholesterolemia, Hypertension, Physical Inactivity Vital Signs: Vital Signs Temperature 98.4 F 01/04/18 08:15 Pulse Rate 63 01/04/18 10:44 Respiratory Rate 20 01/04/18 10:44 Blood Pressure 130/60 01/04/18 10:44 O2 Sat by Pulse Oximetry (%) 99 01/04/18 10:44 Constitutional: Yes: No Distress, Calm Eyes: Yes: Conjunctiva Clear, EOM Intact HENT: Yes: Atraumatic, Normocephalic Respiratory: Yes: Regular. No: Rales, Rhonchi, SOB, Wheezes Gastrointestinal: Yes: Normal Bowel Sounds, Soft Cardiovascular: Yes: Regular Rate and Rhythm. No: Bradycardia, Tachycardia, Pulse Irregular, Gallop, Rub, Varicosities JVD: No Carotid Bruit: No PMI: Non-Displaced Heart Sounds: Yes: S1, S2. No: Split S2, S3, S4, Clicks, Gallop, Rub, Bruit Murmur: No: Systolic Murmur, Diastolic Murmur Musculoskeletal: Yes: Muscle Weakness Edema: No Peripheral Pulses WNL: Yes Neurological: Yes: Alert, Lethargy, Weakness - Other Data Labs, Other Data: CBC, BMP 01/04/18 05:18 01/04/18 05:18 INR, PTT INR 1.07 (0.83-1.09) 01/03/18 16:56 Troponin, BNP 01/03/18 01/03/18 01/04/18 16:58 17:03 00:38 Troponin I < 0.02 Cancelled < 0.02 01/04/18 05:18 Troponin I < 0.02 Troponin, BNP 01/03/18 01/03/18 01/04/18 16:58 17:03 00:38 Troponin I < 0.02 Cancelled < 0.02 01/04/18 05:18 Troponin I < 0.02 ekg 1 sinus bradycardia 38bpm, lvh ekg 2 sinus bradycardia 45bpm, ivcd tele nsr 60bpm Imaging - Results Chest X-ray: Report Reviewed, Image Reviewed EKG: Report Reviewed, Image Reviewed Other: Report Reviewed, Image Reviewed (tele nsr) Assessment/Plan 52 year old woman with pmh advanced MS s/p trach, PEG, perera, on baclofen pump, htn, hld hypothyroid, trigeminal neuralgia admitted with weakness, fatigue found to be hyponatremic with sinus bradycardia inititally in the 30sbpm. currently on Dopamine gtt with pacer pads on standby. Sinus bradycardia -most likely due to underlying illness, Electrolyte disturbance, home medication induced, possible infection, possible hypothyroid -check TFTs -correct electrolytes Na, K, Mg -wean off dopamine gtt as tolerates, atropine as needed -stop metoprolol, avoid all AV rasheed blocking agents -Tele monitoring either in ICU or on tele -no indication for PPM at this time, does not require temporary pacing either at this time. will follow with you
[2018-01-04] MEDS ORDERED: POTASSIUM CHLORIDE TABS 20 MEQ TABLET.ER (FP) PO ONE (11:56)
[2018-01-04] MEDS ORDERED: SERTRALINE HCL 50 MG TABLET (FP) ONE (11:57)
[2018-01-04] MEDS ORDERED: LORATADINE 10 MG TABLET ONE (11:57)
[2018-01-04] MEDS: POTASSIUM CHLORIDE TABS 20 MEQ TABLET.ER (FP) PO SCH (12:03)
[2018-01-04] MEDS: SERTRALINE HCL 50 MG TABLET (FP) PO SCH (12:03)
[2018-01-04] MEDS: LORATADINE 10 MG TABLET PO SCH (12:04)
--- NOTE | 2018-01-04 13:32 | PN ---
Progress Note (short form) - Note Progress Note: ID Consult dictated
[2018-01-04] MEDS ORDERED: carBAMazepine 100 MG TAB.CHEW PO SCH (14:00)
--- NOTE | 2018-01-04 14:27 | CONS ---
INFECTIOUS DISEASE CONSULTATION DATE OF CONSULTATION: DATE OF DICTATION: 01/04/2018 The patient is a 52-year-old female with a history of advanced multiple sclerosis, evaluated for possible urosepsis. The patient was sent to the hospital after she was noted on routine lab work to have a serum sodium of 119. A family member present at the time of the examination reports that she has had increasing weakness and lethargy over the past 3-4 days. She reports that this symptom is a hallmark of recurrent urinary tract infections. She has an indwelling Raza catheter which is changed on a regular basis every 2-3 weeks. She reports that a urinalysis and urine culture were sent approximately 4 days ago, and she was started on oral antibiotic. She was brought to the emergency room where she was found to be lethargic and weak. She was noted to be bradycardic with heart rate in the 30s and hypotensive. She was given atropine and started on dopamine. She was seen in consultation by Cardiology, and an external pacemaker was placed. At the present time, she is awake, but she is arousable. She appears weak. She denies any focal pain. No complaints of suprapubic or flank pain. She has been afebrile. No reports of shaking chills. PAST MEDICAL HISTORY: Positive for advanced multiple sclerosis, hypertension, hypothyroidism. PAST SURGICAL HISTORY: Status post tracheostomy, indwelling Raza catheter, and baclofen pump. ALLERGIES: CHLORAL HYDRATE, AZATHIOPRINE, and ADHESIVE TAPE. MEDICATIONS: Include Synthroid, Apresoline, carbamazepine, Lasix, metoprolol, sertraline. SOCIAL HISTORY: Resides at home with family members. Nonsmoker, nondrinker. SYSTEMS REVIEW: Neurologic: As per HPI. Cardiac: As per HPI. Respiratory: Negative cough or sputum production. Gastrointestinal: Negative vomiting or diarrhea. Genitourinary: As per HPI. LABORATORY DATA: White count 11.8 with left shift, hematocrit 33.2, platelet count 155. BUN 11, creatinine 0.4. Total bilirubin 0.2, alkaline phosphatase 226, AST 31. Serum sodium 131. Urinalysis: Negative leukocyte esterase. PHYSICAL EXAMINATION: General: She is lethargic but arousable. She appears weak. Vital Signs: Temperature 98.4; blood pressure 130/60; pulse 63, regular; respirations 20 per minute. HEENT: Sclerae are anicteric. Neck: Positive tracheostomy in place. Heart: Sounds S1, S2. Lungs: Diminished breath sounds bilaterally. Abdomen: Soft. No suprapubic or flank tenderness. Extremities: Edema 1+. IMPRESSION: 1. Hyponatremia. 2. Bradycardia/hypotension. 3. Possible sepsis secondary to recurrent urinary tract infection. 4. History of drug-resistant urinary tract pathogens. 5. Advanced multiple sclerosis. We will obtain blood cultures. Pending sepsis workup, empiric antibiotic coverage with Zosyn 3.375 g IV piggyback every 8 hours. IV fluid hydration. Cardiac monitoring. Case discussed with family members present at the time of the examination. Thank you for the kind referral. MARGY MUÑIZ M.D. [id number]
[2018-01-04] MEDS: carBAMazepine 100 MG TAB.CHEW PO SCH ×2 (16:01→22:53)
[2018-01-04] MEDS: hydrALAZINE HCL 50 MG TABLET (FP) PO SCH ×2 (16:01→22:52)
--- NOTE | 2018-01-04 16:16 | EKG ---
Test Reason : Blood Pressure : / mmHG Vent. Rate : 038 BPM Atrial Rate : 038 BPM P-R Int : 214 ms QRS Dur : 132 ms QT Int : 574 ms P-R-T Axes : 080 032 034 degrees QTc Int : 456 ms MARKED SINUS BRADYCARDIA WITH 1ST DEGREE A-V BLOCK LEFT VENTRICULAR HYPERTROPHY WITH QRS WIDENING ABNORMAL ECG WHEN COMPARED WITH ECG OF 06-NOV-2017 03:12, NC INTERVAL HAS INCREASED VENT. RATE HAS DECREASED BY 34 BPM QRS DURATION HAS INCREASED Confirmed by MD ALONSO, MATTY ([id number]) on 01/04/2018 4:16:03 PM Referred By: Confirmed By:MATTY GUPTA MD
--- NOTE | 2018-01-04 16:16 | EKG ---
Test Reason : Blood Pressure : / mmHG Vent. Rate : 045 BPM Atrial Rate : 045 BPM P-R Int : 192 ms QRS Dur : 124 ms QT Int : 560 ms P-R-T Axes : 042 037 044 degrees QTc Int : 484 ms SINUS BRADYCARDIA NON-SPECIFIC INTRA-VENTRICULAR CONDUCTION DELAY BORDERLINE ECG WHEN COMPARED WITH ECG OF 03-JAN-2018 17:05, NO SIGNIFICANT CHANGE WAS FOUND Confirmed by MD ALONSO, MATTY ([id number]) on 01/04/2018 4:15:49 PM Referred By: Confirmed By:MATTY GUPTA MD
[2018-01-04] MEDS: PIPERACILLIN/TAZOB 3.375 GM 3.375 GM in DEXTROSE 5%-WATER - 50 ML IVPB SCH (17:43)
[2018-01-04] MEDS: SODIUM CHLORIDE 1 GM TABLET PO SCH (22:53)
[2018-01-04] MEDS: LORazepam 0.5 MG TABLET PO PRN (22:53)
[2018-01-05] MEDS ORDERED: DEXTROSE 5%-WATER - 50 ML IVPB ONE ×3 (01:20→17:45)
[2018-01-05] MEDS ORDERED: PIPERACILLIN/TAZOBACTAM 3.375 GM VIAL IVPB ONE ×3 (01:20→17:45)
[2018-01-05] MEDS: PIPERACILLIN/TAZOB 3.375 GM 3.375 GM in DEXTROSE 5%-WATER - 50 ML IVPB SCH ×3 (02:43→17:47)
[2018-01-05] MEDS: SODIUM CHLORIDE 1,000 ML IV SCH ×2 (02:43→11:09)
[2018-01-05 06:44] LABS: BASO % 0.3 % (0-2.0); EOS % 0.4 % (0-4.5); HEMATOCRIT 27.5 % (32.4-45.2); LYMPH % 3.5 % (8-40); MCH 31.7 pg (25.7-33.7); MCHC 32.9 g/dl (32.0-36.0); MEAN CELL VOLUME 96.3 fl (80-96); MEAN PLT VOLUME 8.9 fl (7.5-11.1); MONO % 1.9 % (3.8-10.2); NEUT % 93.9 % (42.8-82.8); PLATELET COUNT 114 K/MM3 (134-434); RBC 2.86 M/mm3 (3.60-5.2); RDW 14.8 % (11.6-15.6); WHITE BLOOD COUNT 10.7 K/mm3 (4.0-10.0)
[2018-01-05 07:35] LABS: ALBUMIN 2.3 g/dl (3.4-5.0); ALK PHOS 189 U/L (45-117); ANION GAP 8 MMOL/L (8-16); BILIRUBIN,TOTAL 0.3 mg/dL (0.2-1); BLOOD UREA NITROGEN 10 mg/dL (7-18); CALCIUM 8.5 mg/dL (8.5-10.1); CHLORIDE 95 mmol/L (98-107); CO2 27 mmol/L (21-32); CREATININE 0.5 mg/dL (0.55-1.3); GLUCOSE,RANDOM 65 mg/dL (74-106); PHOSPHOROUS 2.4 mg/dL (2.5-4.9); POTASSIUM 3.8 mmol/L (3.5-5.1); SGOT/AST 25 U/L (15-37); SGPT/ALT 29 U/L (13-61); SODIUM 129 mmol/L (136-145); TOT PROT 6.3 g/dl (6.4-8.2)
[2018-01-05] MEDS: hydrALAZINE HCL 50 MG TABLET (FP) PO SCH ×3 (08:34→21:42)
[2018-01-05] MEDS: LEVOTHYROXINE NA 100 MCG TABLET (FP) PO SCH (08:38)
[2018-01-05] MEDS: carBAMazepine 100 MG TAB.CHEW PO SCH ×3 (08:38→21:42)
--- NOTE | 2018-01-05 08:59 | CONSULT ---
Consultation: REQUESTING PROVIDER: LUDWIG Gloria CONSULT REQUEST: We have been asked to medically evaluate this patient for Pulmonology Evaluation. HISTORY OF PRESENT ILLNESS: 52 yo Female with PMH MS (trach, Perera, quadriplegia, baclofen pump), Hypothyroid, HTN, HLD, Trigeminal Neuralgia, Legally blind, admitted for hyponatremia sent by PMD for Na of 119. History taken from the mother who denies any symptoms or other concerns other than the Sodium level being low. She states she was attempted to be treated as outpatient but when the repeat blood work showed a Na of 119, she was told to come to the ED for admission. Denies any fevers, chills, cough, worsening respiratory failure. The mother states that she requires the ventilator at night, but does not require it at all during the day and requests that she be taken off of the ventilator as it is not required. REVIEW OF SYSTEMS: CONSTITUTIONAL: Absent: fever, chills, diaphoresis, generalized weakness, malaise, loss of appetite, weight change HEENT: Absent: rhinorrhea, nasal congestion, throat pain, throat swelling, difficulty swallowing, mouth swelling, ear pain, eye pain, visual changes CARDIOVASCULAR: Absent: chest pain, syncope, palpitations, irregular heart rate, lightheadedness , peripheral edema RESPIRATORY: no worsening SOB from baseline Absent: cough, shortness of breath, dyspnea with exertion, orthopnea, wheezing, stridor, hemoptysis GASTROINTESTINAL: Absent: abdominal pain, abdominal distension, nausea, vomiting, diarrhea, constipation, melena, hematochezia GENITOURINARY: Chronic perera Absent: dysuria, frequency, urgency, hesitancy, hematuria, flank pain, genital pain MUSCULOSKELETAL: Absent: myalgia, arthralgia, joint swelling, back pain, neck pain SKIN: Absent: rash, itching, pallor HEMATOLOGIC/IMMUNOLOGIC: Absent: easy bleeding, easy bruising, lymphadenopathy, frequent infections ENDOCRINE: Absent: unexplained weight gain, unexplained weight loss, heat intolerance, cold intolerance NEUROLOGIC: paraplegia Absent: headache, focal weakness or paresthesias, dizziness, unsteady gait, seizure, mental status changes, bladder or bowel incontinence PSYCHIATRIC: Absent: anxiety, depression, suicidal or homicidal ideation, hallucinations. PHYSICAL EXAMINATION Vital Signs - 24 hr 01/04/18 01/04/18 01/04/18 09:15 10:00 10:44 Temperature Pulse Rate Pulse Rate [ 61 61 63 Apical] Respiratory 12 18 20 Rate Blood Pressure Blood Pressure 98/50 L 124/58 L 130/60 [Left] O2 Sat by Pulse 99 99 99 Oximetry (%) 01/04/18 01/04/18 01/04/18 12:30 14:33 15:30 Temperature 94.9 F L Pulse Rate Pulse Rate [ 59 L 59 L Apical] Respiratory 12 12 Rate Blood Pressure Blood Pressure 105/61 137/73 [Left] O2 Sat by Pulse 99 100 Oximetry (%) 01/04/18 01/04/18 01/04/18 16:27 18:30 18:55 Temperature 97.4 F L 95.6 F L Pulse Rate 69 Pulse Rate [ 62 75 Apical] Respiratory 10 18 12 Rate Blood Pressure 142/75 Blood Pressure 150/69 140/58 L [Left] O2 Sat by Pulse 100 99 Oximetry (%) 01/04/18 01/04/18 01/04/18 20:02 21:00 22:00 Temperature 96.0 F L Pulse Rate 79 Pulse Rate [ 73 Apical] Respiratory 12 14 Rate Blood Pressure 152/88 Blood Pressure 142/75 [Left] O2 Sat by Pulse 100 100 Oximetry (%) 01/04/18 01/05/18 01/05/18 23:00 00:39 02:05 Temperature 96.0 F L 97.0 F L Pulse Rate 79 66 Pulse Rate [ Apical] Respiratory 14 14 14 Rate Blood Pressure 152/88 96/53 L Blood Pressure [Left] O2 Sat by Pulse Oximetry (%) 01/05/18 01/05/18 06:00 06:10 Temperature 98.3 F Pulse Rate 71 Pulse Rate [ Apical] Respiratory 14 14 Rate Blood Pressure 113/47 L Blood Pressure [Left] O2 Sat by Pulse Oximetry (%) GENERAL: Awake, alert, in no acute distress. HEAD: Normal with no signs of trauma. EYES: PERRL, sclera anicteric EARS, NOSE, THROAT: oropharynx clear without exudates. Moist mucous membranes. NECK: supple without lymphadenopathy, trach collar in place LUNGS: Mechanical breath sounds, no wheezes or crackles HEART: Regular rate and rhythm, normal S1 and S2 ABDOMEN: Soft, nontender, not distended, normoactive bowel sounds EXTREMITIES: 2+ pulses, warm, well-perfused. No peripheral edema. NEUROLOGICAL: Cranial nerves II-XII intact. Functionally quadriplegic, unable to speak currently on vent, normal speech as per mother at baseline. Laboratory Results - last 24 hr 01/04/18 01/04/18 01/05/18 05:18 21:20 06:00 WBC 10.7 H RBC 2.86 L Hgb 9.0 L Hct 27.5 L D MCV 96.3 H MCH 31.7 MCHC 32.9 RDW 14.8 Plt Count 114 L D MPV 8.9 Absolute Neuts (auto) 10.1 H Neutrophils % 93.9 H Neutrophils % (Manual) 90.8 H Band Neutrophils % 5.1 Lymphocytes % 3.5 L D Lymphocytes % (Manual) 0.0 L Monocytes % 1.9 L Monocytes % (Manual) 3 L Eosinophils % 0.4 D Eosinophils % (Manual) 0.0 Basophils % 0.3 Basophils % (Manual) 0.0 Myelocytes % (Man) 0 Promyelocytes % (Man) 0 Blast Cells % (Manual) 0 Nucleated RBC % 0 Metamyelocytes 0 Hypochromia 1+ Platelet Estimate Adequate Polychromasia 1+ Poikilocytosis 0 Anisocytosis 1+ Microcytosis 0 Macrocytosis 1+ Sodium 128 L Potassium Chloride Carbon Dioxide Anion Gap BUN Creatinine Creat Clearance w eGFR Random Glucose Calcium Phosphorus Total Bilirubin AST ALT Alkaline Phosphatase Total Protein Albumin TSH Free T4 01/05/18 01/05/18 06:00 06:00 WBC RBC Hgb Hct MCV MCH MCHC RDW Plt Count MPV Absolute Neuts (auto) Neutrophils % Neutrophils % (Manual) Band Neutrophils % Lymphocytes % Lymphocytes % (Manual) Monocytes % Monocytes % (Manual) Eosinophils % Eosinophils % (Manual) Basophils % Basophils % (Manual) Myelocytes % (Man) Promyelocytes % (Man) Blast Cells % (Manual) Nucleated RBC % Metamyelocytes Hypochromia Platelet Estimate Polychromasia Poikilocytosis Anisocytosis Microcytosis Macrocytosis Sodium 129 L Potassium 3.8 Chloride 95 L Carbon Dioxide 27 Anion Gap 8 BUN 10 Creatinine 0.5 L Creat Clearance w eGFR > 60 Random Glucose 65 L Calcium 8.5 Phosphorus 2.4 L Total Bilirubin 0.3 AST 25 ALT 29 Alkaline Phosphatase 189 H Total Protein 6.3 L Albumin 2.3 L TSH 1.82 Free T4 1.17 Active Medications Generic Name Dose Route Start Last Admin Trade Name Freq PRN Reason Stop Dose Admin Carbamazepine 100 mg 01/04/18 14:00 01/05/18 08:38 Tegretol - PO 100 mg TID CATHERINE Administration Enoxaparin Sodium 40 mg 01/05/18 10:00 Lovenox - SQ DAILY CATHERINE Hydralazine HCl 50 mg 01/04/18 14:00 01/05/18 08:34 Apresoline - PO Not Given TID CATHERINE Sodium Chloride 1,000 mls @ 75 mls/hr 01/04/18 11:15 01/05/18 02:43 Normal Saline - IV 75 mls/hr ASDIR CATHERINE Administration Piperacillin Sod/Tazobactam 50 mls @ 100 mls/hr 01/04/18 18:00 01/05/18 02:43 Sod 3.375 gm/ Dextrose IVPB 100 mls/hr Q8H-IV CATHERINE Administration Protocol Levothyroxine Sodium 100 mcg 01/04/18 10:00 01/05/18 08:38 Synthroid - PO 100 mcg DAILY@0700 CATHERINE Administration Loratadine 10 mg 01/04/18 11:00 01/04/18 12:04 Claritin - PO 10 mg DAILY CATHERINE Administration Lorazepam 0.5 mg 01/04/18 22:37 01/04/18 22:53 Ativan - PO 0.5 mg DAILY PRN Administration ANXIETY Metoprolol Succinate 50 mg 01/04/18 22:00 01/04/18 22:56 Toprol Xl - PO 50 mg BID CATHERINE Administration Potassium Chloride 20 meq 01/04/18 11:00 01/04/18 12:03 K-Dur - PO 20 meq DAILY CATHERINE Administration Sertraline HCl 50 mg 01/04/18 11:00 01/04/18 12:03 Zoloft - PO 50 mg DAILY CATHERINE Administration Sodium Chloride 1 gm 01/04/18 22:00 01/04/18 22:53 Sodium Chloride Tablet - PO 1 gm BID CATHERINE Administration ASSESSMENT/PLAN: 52 yo Female with PMH MS (trach, Perera, quadriplegia, baclofen pump), Hypothyroid, HTN, HLD, Trigeminal Neuralgia, Legally blind, admitted for hyponatremia sent by PMD for Na of 119. Chronic Respiratory Failure s/p trach -Trach collar securely in place with no erythema, drainage, or significant air leak -As per mother, pt uses ventilator at night but does not require during the day -Currently stable -Trach cap as needed during the day to allow pt to eat and talk appropriately -Albuterol NEBs PRN HypoNatremia -Renal Consult noted -NS @ 75 cc/hr -NaCl Tablets Bradycardia -Resolved -Atropine and pacer pads placed in ED -Dopamine drip as per Cardiology recs -No longer requiring Dopamine drip -Toprol XL resumed Bacteriuria -Asymptomatic -Has grown Pseudomonas in the past -Urine C/S pending -ID Consult -Zosyn DVT Prophylaxis -Lovenox 40 mg SQ Daily FEN -Fluids: NS @ 75 cc/hr -Electrolytes: As above, monitor and replete PRN -Nutrition: Regular Diet Dispo: We will continue to follow the patient. Thank you for this consultative opportunity. Visit type - Emergency Visit Emergency Visit: Yes ED Registration Date: 01/03/18 Care time: The patient presented to the Emergency Department on the above date and was hospitalized for further evaluation of their emergent condition. - New Patient This patient is new to me today: Yes Date on this admission: 01/05/18 - Critical Care Critical Care patient: No
--- NOTE | 2018-01-05 09:06 | CONSULT ---
Consult - text type - Consultation Consultation Note: Neurology History of Present Illness: Covering for Dr. Conroy 52 y/o woman with a PMHx of MS, (Trach, Perera, Quadriplegia, Baclofen Pump), HTN , HLD, Hypothyroidism, Trigeminal Neuralgia, Legally Blind who presented to the ED with her mother sent in by her PMD for Hyponatremia. Na reportedly 119 as outpatient. On arrival to ED patient was found to be in bradycardia 38. She was given atropine 0.5mg IV and placed on pacer pads and started on a Dopamine Infusion, per cardiology recommendation. Patient was reportedly lethargic, Reportedly mother managed patient and denied patient having fever, chills, cough , dizziness, DAI, CP, palpitations, AP, N/V/D, constipation. Consulted for AMS, this AM patient is awake, alert, making head movements to answer questions. Appears to be near baseline with medical mgmt. - Past Medical History FINANCIAL OFFICER: Yes: Multiple Sclerosis (quadraplegia), Other (legally blind, trigeminal neuralgia -> baclofen pump) Cardiovascular: Yes: HTN, Hyperlipdemia Pulmonary: Yes: Pneumonia, Previously Intubated, Other Gastrointestinal: Yes: Constipation (chronic) Renal/: Yes: Neurogenic Bladder ( neurogenic bladder, chronic perera catheter) ...LMP: 06/07/12 Heme/Onc: Yes: Anemia Infectious Disease: Yes: Other (pneumonia, uti treated by urologist) Musculoskeletal: Yes: Other (Quadraplegia) Dermatology: Yes: Other (chronic decubitus followed by wound care) - Past Surgical History Additional Past Surgical History: Tracheotomy - Smoking History Smoking history: Never smoked Have you smoked in the past 12 months: No Aproximately how many cigarettes per day: 0 - Alcohol/Substance Use Hx Alcohol Use: No History of Substance Use: reports: None - Social History ADL: Support Services History of Recent Travel: No Home Medications - Allergies Allergies/Adverse Reactions: Allergies Allergy/AdvReac Type Severity Reaction Status Date / Time chloral hydrate Allergy Intermediate Rash Verified 01/03/18 16:02 [Chloral Hydrate] azathioprine [From Imuran] Allergy Rash Verified 01/03/18 16:02 azathioprine sodium Allergy Rash Verified 01/03/18 16:02 [From Imuran] adhesive tape AdvReac Severe sensitivity Verified 01/03/18 16:02 to glue adhesive AdvReac Unknown Verified 01/03/18 16:02 - Home Medications Home Medications: Ambulatory Orders Levothyroxine [Synthroid -] 100 mcg PO DAILY@0700 #30 tablet 06/24/16 Sodium Chloride Tablet - 1 gm PO DAILY #30 tablet 06/24/16 hydrALAZINE HCL [Apresoline -] 50 mg PO TID 02/11/17 Carbamazepine 100 mg PO TID 01/03/18 Carbamazepine [Tegretol -] 100 mg PO TID 01/03/18 Furosemide [Lasix -] 20 mg PO DAILY 01/03/18 Loratadine 10 mg PO DAILY 01/03/18 Metoprolol Succinate 50 mg PO BID 01/03/18 Potassium Chloride [K-Dur -] 20 meq PO DAILY 01/03/18 Sertraline HCl 50 mg PO DAILY 01/03/18 Family Disease History - Family Disease History Family Disease History: Diabetes: Sister, Other: Mother Review of Systems - Review of Systems Constitutional: reports: No Symptoms Eyes: reports: No Symptoms HENT: reports: No Symptoms Neck: reports: No Symptoms Cardiovascular: reports: No Symptoms Respiratory: reports: No Symptoms Gastrointestinal: reports: No Symptoms Genitourinary: reports: No Symptoms Breasts: reports: No Symptoms Reported Musculoskeletal: reports: No Symptoms Integumentary: reports: No Symptoms Neurological: reports: No Symptoms Endocrine: reports: No Symptoms Hematology/Lymphatic: reports: No Symptoms Psychiatric: reports: No Symptoms Physical Examination Vital Signs Period Temp Pulse Resp BP Sys/Morillo Pulse Ox Last 24 Hr 94.9 F-98.3 F 59-79 10-20 96-152/47-88 99-100 Constitutional: Yes: No Distress, Calm, Thin Eyes: Yes: Conjunctiva Clear, PERRL HENT: Yes: WNL, Atraumatic, Normocephalic Neck: Yes: WNL, Supple, Trachea Midline, Other (Trach) Cardiovascular: Yes: Bradycardia, S1, S2 Respiratory: Trach in place, on mechanical vent, decreased breath sounds Gastrointestinal: Yes: WNL, Normal Bowel Sounds, Soft Renal/: Yes: Perera Present (from home) Breast(s): Yes: WNL Edema: No Peripheral Pulses WNL: Yes Neurological: Awake, alert, shakes head to questions, b/l upper and lower quadriplegia, responds to tactile stimulation, gait not able Labs: CBCD WBC 10.7 K/mm3 (4.0-10.0) H 01/05/18 06:00 RBC 2.86 M/mm3 (3.60-5.2) L 01/05/18 06:00 Hgb 9.0 GM/dL (10.7-15.3) L 01/05/18 06:00 Hct 27.5 % (32.4-45.2) L D 01/05/18 06:00 MCV 96.3 fl (80-96) H 01/05/18 06:00 MCHC 32.9 g/dl (32.0-36.0) 01/05/18 06:00 RDW 14.8 % (11.6-15.6) 01/05/18 06:00 Plt Count 114 K/MM3 (134-434) L D 01/05/18 06:00 MPV 8.9 fl (7.5-11.1) 01/05/18 06:00 CMP Sodium 129 mmol/L (136-145) L 01/05/18 06:00 Potassium 3.8 mmol/L (3.5-5.1) 01/05/18 06:00 Chloride 95 mmol/L (98-107) L 01/05/18 06:00 Carbon Dioxide 27 mmol/L (21-32) 01/05/18 06:00 Anion Gap 8 MMOL/L (8-16) 01/05/18 06:00 BUN 10 mg/dL (7-18) 01/05/18 06:00 Creatinine 0.5 mg/dL (0.55-1.3) L 01/05/18 06:00 Creat Clearance w eGFR > 60 (>60) 01/05/18 06:00 Random Glucose 65 mg/dL (74-106) L 01/05/18 06:00 Calcium 8.5 mg/dL (8.5-10.1) 01/05/18 06:00 Total Bilirubin 0.3 mg/dL (0.2-1) 01/05/18 06:00 AST 25 U/L (15-37) 01/05/18 06:00 ALT 29 U/L (13-61) 01/05/18 06:00 Alkaline Phosphatase 189 U/L (45-117) H 01/05/18 06:00 Total Protein 6.3 g/dl (6.4-8.2) L 01/05/18 06:00 Albumin 2.3 g/dl (3.4-5.0) L 01/05/18 06:00 CARDIAC ENZYMES Troponin I < 0.02 ng/ml (0.00-0.05) 01/04/18 05:18 Plan 52 y/o woman with a PMHx of MS, (Trach, Perera, Quadriplegia, Baclofen Pump), HTN , HLD, Hypothyroidism, Trigeminal Neuralgia, Legally Blind who presented to the ED with her mother sent in by her PMD for Hyponatremia. Na reportedly 119 as outpatient. On arrival to ED patient was found to be in bradycardia 38. She was given atropine 0.5mg IV and placed on pacer pads and started on a Dopamine Infusion, per cardiology recommendation. Patient was reportedly lethargic, Reportedly mother managed patient and denied patient having fever, chills, cough , dizziness, DAI, CP, palpitations, AP, N/V/D, constipation. Consulted for AMS, this AM patient is awake, alert, making head movements to answer questions. Appears to be near baseline with medical mgmt. Recommend continued optimization of hyponatremia (avoid rapid correction), Continue telemetry, cardiac monitoring , cardiology followup. Increased hydration recommended. Did not have imaging on admission, patient appears to be at baseline and with multiple other medical issues, will defer for now. If any decline in mental status, recommended CT head. DVT ppx.
--- NOTE | 2018-01-05 09:28 | PN ---
Progress Note, Physician - Current Medication List Current Medications: Active Medications Carbamazepine (Tegretol -) 100 mg PO TID [facility] Last Admin: 01/05/18 08:38 Dose: 100 mg Enoxaparin Sodium (Lovenox -) 40 mg SQ DAILY [facility] Hydralazine HCl (Apresoline -) 50 mg PO TID [facility] Last Admin: 01/05/18 08:34 Dose: Not Given Sodium Chloride (Normal Saline -) 1,000 mls @ 75 mls/hr IV ASDIR [facility] Last Admin: 01/05/18 02:43 Dose: 75 mls/hr Piperacillin Sod/Tazobactam (Sod 3.375 gm/ Dextrose) 50 mls @ 100 mls/hr IVPB Q8H-IV [facility]; Protocol Last Admin: 01/05/18 02:43 Dose: 100 mls/hr Levothyroxine Sodium (Synthroid -) 100 mcg PO DAILY@0700 [facility] Last Admin: 01/05/18 08:38 Dose: 100 mcg Loratadine (Claritin -) 10 mg PO DAILY [facility] Last Admin: 01/04/18 12:04 Dose: 10 mg Lorazepam (Ativan -) 0.5 mg PO DAILY PRN PRN Reason: ANXIETY Last Admin: 01/04/18 22:53 Dose: 0.5 mg Metoprolol Succinate (Toprol Xl -) 50 mg PO BID [facility] Last Admin: 01/04/18 22:56 Dose: 50 mg Potassium Chloride (K-Dur -) 20 meq PO DAILY [facility] Last Admin: 01/04/18 12:03 Dose: 20 meq Sertraline HCl (Zoloft -) 50 mg PO DAILY [facility] Last Admin: 01/04/18 12:03 Dose: 50 mg Sodium Chloride (Sodium Chloride Tablet -) 1 gm PO BID [facility] Last Admin: 01/04/18 22:53 Dose: 1 gm - Objective Vital Signs: Vital Signs Temperature 98.3 F 01/05/18 06:00 Pulse Rate 71 01/05/18 06:00 Respiratory Rate 14 01/05/18 06:10 Blood Pressure 113/47 L 01/05/18 06:00 O2 Sat by Pulse Oximetry (%) 100 01/04/18 21:00 Cardiovascular: Yes: S1, S2 Respiratory: Yes: Mechanically Ventilated, Rhonchi Gastrointestinal: Yes: Normal Bowel Sounds, Soft Labs: CBC, BMP 01/05/18 06:00 01/05/18 06:00 INR, PTT INR 1.07 (0.83-1.09) 01/03/18 16:56 Assessment/Plan - Problems (1) Bradycardia Assessment/Plan: -Resolved -received atropine and dopamine in the ED -Cardiology consult noted Code(s): R00.1 - BRADYCARDIA, UNSPECIFIED (2) Hyponatremia Assessment/Plan: -Much improved. -Pt was seen by me on Wednesday, repeat Na that day was 119 mg/dl because she was taking her NaCl tabs only once a day instead of BID -Now at 129 -Seen by Nephrology -Also on NaCl @ 75cc/hr -monitor daily labs Code(s): E87.1 - HYPO-OSMOLALITY AND HYPONATREMIA (3) Altered mental status Assessment/Plan: -2/2 to metabolic encephalopathy -Neurology consult Code(s): R41.82 - ALTERED MENTAL STATUS, UNSPECIFIED Qualifiers: Altered mental status type: unspecified Qualified Code(s): R41.82 - Altered mental status, unspecified (4) Bacteriuria Assessment/Plan: -was started on Cipro on 12/31/17 for possible UTI -UA/UC -On IV zosyn, has had Pseudomonas Aerugenosa in UC in the past Microbiology 01/03/18 18:05 Urine Culture - Preliminary Urine - Urine Raza Gram Negative Adam -ID consult Code(s): N39.0 - URINARY TRACT INFECTION, SITE NOT SPECIFIED (5) Chronic hypercapnic respiratory failure Assessment/Plan: -Tracheostomy -Vent at bedtime -Pulmonary consult -CXR unremarkable Code(s): J96.12 - CHRONIC RESPIRATORY FAILURE WITH HYPERCAPNIA (6) Functional quadriplegia Code(s): R53.2 - FUNCTIONAL QUADRIPLEGIA (7) Hx of multiple sclerosis Code(s): Z86.69 - PERSONAL HISTORY OF DIS OF THE NERVOUS SYS AND SENSE ORGANS (8) Metabolic encephalopathy Code(s): G93.41 - METABOLIC ENCEPHALOPATHY (9) Sepsis Assessment/Plan: -BC/UC/SC pending -ID consult -IV abx -Alyssa hugger to keep rectal temp > 95.0 F Code(s): A41.9 - SEPSIS, UNSPECIFIED ORGANISM Qualifiers: Sepsis type: sepsis due to unspecified organism Qualified Code(s): A41.9 - Sepsis, unspecified organism (10) Hypothermia Assessment/Plan: -2/2 to sepsis -Stage 1 -Alyssa hugger to keep rectal temp above 95.0 F Code(s): T68.XXXA - HYPOTHERMIA, INITIAL ENCOUNTER Qualifiers: Encounter type: initial encounter Qualified Code(s): T68.XXXA - Hypothermia , initial encounter Assessment/Plan See problem list Dispo: admit to Med-Surg for further treatment and evaluation
[2018-01-05 09:34] LABS: ANISOCYTOSIS 1+; MACROCYTOSIS 0; PLATELET ESTIMATE DECREASED
[2018-01-05] MEDS ORDERED: PIPERACILLIN/TAZOB 4.5 GM 4.5 GM in DEXTROSE 5%-WATER 100 ML IVPB SCH (10:00)
[2018-01-05] MEDS ORDERED: PT OWN MED DRAWER 7, Y5N ONE ×2 (10:52→14:38)
[2018-01-05] MEDS: LORATADINE 10 MG TABLET PO SCH (11:07)
[2018-01-05] MEDS: POTASSIUM CHLORIDE TABS 20 MEQ TABLET.ER (FP) PO SCH (11:07)
[2018-01-05] MEDS: ENOXAPARIN NA (PORCINE) 40 MG/0.4 ML DISP.SYRIN SQ SCH (11:07)
[2018-01-05] MEDS: SODIUM CHLORIDE 1 GM TABLET PO SCH ×2 (11:07→21:43)
[2018-01-05] MEDS: SERTRALINE HCL 50 MG TABLET (FP) PO SCH (11:08)
--- NOTE | 2018-01-05 12:28 | PN ---
Teaching Attending Note Name of Resident: Alan Melo ATTENDING PHYSICIAN STATEMENT I saw and evaluated the patient. I reviewed the resident's note and discussed the case with the resident. I agree with the resident's findings and plan as documented. PULMONARY IMP CHRONIC RESPIRATORY FAILURE ADVANCED MS BRADYCARDIA HYPOTHERMIA H/O UTIs/SEPSIS HYPONATREMIA PLAN TRACH COLLAR ALT WITH VENT SUPPORT AT NIGHT INHALED BRONCHODILATORS MONITOR HR ABX CULTURES TRACHEAL SUCTIONING DR ELDER Problem List - Problems (1) Bradycardia Code(s): R00.1 - BRADYCARDIA, UNSPECIFIED (2) Hyponatremia Code(s): E87.1 - HYPO-OSMOLALITY AND HYPONATREMIA (3) Anemia Code(s): D64.9 - ANEMIA, UNSPECIFIED Qualifiers: Other causes of anemia: other cause, not classified (4) Chronic respiratory failure Code(s): J96.10 - CHRONIC RESPIRATORY FAILURE, UNSP W HYPOXIA OR HYPERCAPNIA (5) Congestion of upper airway Code(s): J98.8 - OTHER SPECIFIED RESPIRATORY DISORDERS (6) Functional quadriplegia Code(s): R53.2 - FUNCTIONAL QUADRIPLEGIA (7) HTN (hypertension) Code(s): I10 - ESSENTIAL (PRIMARY) HYPERTENSION (8) Hypothermia Code(s): T68.XXXA - HYPOTHERMIA, INITIAL ENCOUNTER Qualifiers: Encounter type: initial encounter Qualified Code(s): T68.XXXA - Hypothermia , initial encounter (9) Multiple sclerosis Code(s): G35 - MULTIPLE SCLEROSIS (10) Muscle spasticity Code(s): M62.838 - OTHER MUSCLE SPASM
--- NOTE | 2018-01-05 14:44 | CONS ---
DATE OF CONSULTATION: DATE OF DICTATION: 01/05/2018 Patient is a known patient of wound clinic at [facility] being followed up for her multiple decubiti. Recently seen in the emergency room on Wednesday for a low sodium, general condition deterioration. Patient referred by Dr. Lopez. Past history is relevant for multiple sclerosis, has a tracheostomy, indwelling Raza catheter and is quadriplegic, also on baclofen pump, hypertension, hypothyroidism, HLD. She is legally blind per her primary care provider. Hyponatremia has been present in the past. Patient felt weak for the past 1 week. No history of fevers, chills, chest pain, shortness of breath, abdominal pain, nausea, vomiting or headache. ALLERGIES: Noted for CHLORAL HYDRATE; AZATHIOPRINE; ; IMURAN; . MEDICATIONS: On levothyroxine 100 mcg daily; sodium chloride tablets 1 g daily; hydralazine (Apresoline) 50 mg t.i.d.; carbamazepine (Tegretol) 100 mg p.o. t.i.d.; furosemide 20 mg daily; loratadine 10 mg daily. Patient at present on . She was in emergency room on hold pattern, resulted in changes in her buttocks and labia majora with redness and erythema. Family very worried and concerned about pressure injuries. PHYSICAL EXAMINATION: Patient seen in presence of her mother. She is still drowsy, difficulty in speaking, looks weak. Examination of the wounds has been delayed due to her general condition. PLAN OF CARE: 1. Wound care has been added for all the open wounds with collagen dressing to be done 3 times a week. 2. Continued medical management. 3. Follow up as needed. RAFAEL LOVELACE M.D. [id number]
--- NOTE | 2018-01-05 15:25 | PN ---
Progress Note, Physician History of Present Illness: seen and examined today in nad. no overnight events. no new complaints. - Current Medication List Current Medications: Active Medications Carbamazepine (Tegretol -) 100 mg PO TID [facility] Last Admin: 01/05/18 14:44 Dose: 100 mg Enoxaparin Sodium (Lovenox -) 40 mg SQ DAILY [facility] Last Admin: 01/05/18 11:07 Dose: 40 mg Hydralazine HCl (Apresoline -) 50 mg PO TID [facility] Last Admin: 01/05/18 14:44 Dose: 50 mg Piperacillin Sod/Tazobactam (Sod 3.375 gm/ Dextrose) 50 mls @ 100 mls/hr IVPB Q8H-IV [facility]; Protocol Last Admin: 01/05/18 11:08 Dose: 100 mls/hr Levothyroxine Sodium (Synthroid -) 100 mcg PO DAILY@0700 [facility] Last Admin: 01/05/18 08:38 Dose: 100 mcg Loratadine (Claritin -) 10 mg PO DAILY [facility] Last Admin: 01/05/18 11:07 Dose: 10 mg Lorazepam (Ativan -) 0.5 mg PO DAILY PRN PRN Reason: ANXIETY Last Admin: 01/04/18 22:53 Dose: 0.5 mg Metoprolol Succinate (Toprol Xl -) 50 mg PO BID [facility] Last Admin: 01/05/18 11:07 Dose: 50 mg Potassium Chloride (K-Dur -) 20 meq PO DAILY [facility] Last Admin: 01/05/18 11:07 Dose: 20 meq Sertraline HCl (Zoloft -) 50 mg PO DAILY [facility] Last Admin: 01/05/18 11:08 Dose: 50 mg Sodium Chloride (Sodium Chloride Tablet -) 1 gm PO BID [facility] Last Admin: 01/05/18 11:07 Dose: 1 gm - Objective Vital Signs: Vital Signs Temperature 97.9 F 01/05/18 14:28 Pulse Rate 87 01/05/18 14:28 Respiratory Rate 22 H 01/05/18 14:28 Blood Pressure 143/79 01/05/18 14:28 O2 Sat by Pulse Oximetry (%) 97 01/05/18 11:35 Constitutional: Yes: No Distress, Calm Eyes: Yes: Conjunctiva Clear HENT: Yes: Atraumatic Cardiovascular: Yes: Regular Rate and Rhythm, S1, S2. No: Bradycardia, Tachycardia, Pulse Irregular, Bruit, JVD, Gallop, Murmur, Rub, S3, S4, Varicosities Respiratory: Yes: Regular. No: Rales, Rhonchi, Wheezes Gastrointestinal: Yes: Normal Bowel Sounds, Soft. No: Distention, Tenderness Musculoskeletal: Yes: Muscle Weakness Peripheral Pulses WNL: Yes Neurological: Yes: Alert, Oriented Psychiatric: Yes: Alert, Oriented Labs: CBC, BMP 01/05/18 06:00 01/05/18 06:00 INR, PTT INR 1.07 (0.83-1.09) 01/03/18 16:56 - ....Imaging Chest X-ray: Report Reviewed, Image Reviewed EKG: Report Reviewed, Image Reviewed Other: Report Reviewed, Image Reviewed Assessment/Plan 52 year old woman with pmh advanced MS s/p trach, PEG, perera, on baclofen pump, htn, hld hypothyroid, trigeminal neuralgia admitted with weakness, fatigue found to be hyponatremic with sinus bradycardia inititally in the 30sbpm. currently on Dopamine gtt with pacer pads on standby. Sinus bradycardia -HR improved and is in normal range now -most likely due to underlying illness, Electrolyte disturbance, home medication induced, possible infection, possible hypothyroid -TSH wnl -correct electrolytes Na, K, Mg -wean off dopamine gtt as tolerates, atropine as needed -still on metoprolol, if recurrent bradycardia would stop metoprolol -no indication for PPM at this time, does not require temporary pacing either at this time. No additional cardiac work up needed at this time. Please call with any additional questions.
[2018-01-05 16:48] VITALS: BMI 23.4
--- NOTE | 2018-01-05 17:52 | PN ---
Progress Note (short form) - Note Progress Note: Renal follow up for Hyponatremia Pt seen and examined at the bedside awake and alert no overnight events Vital Signs Temperature 97.9 F 01/05/18 14:28 Pulse Rate 85 01/05/18 16:00 Respiratory Rate 22 H 01/05/18 14:28 Blood Pressure 143/79 01/05/18 14:28 O2 Sat by Pulse Oximetry (%) 92 L 01/05/18 16:00 Intake & Output 01/02/18 01/03/18 01/04/18 01/05/18 23:59 23:59 23:59 23:59 Intake Total 425 Output Total 500 Balance -75 Weight 72.575 kg 72.393 kg 72.121 kg NAD no LE edema CBC, BMP 01/05/18 06:00 01/05/18 06:00 Current Medications Albuterol Sulfate (Ventolin 0.083% Nebulizer Soln -) 1 amp NEB Q6H PRN PRN Reason: SHORT OF BREATH/WHEEZING Carbamazepine (Tegretol -) 100 mg PO TID [facility] Last Admin: 01/05/18 14:44 Dose: 100 mg Enoxaparin Sodium (Lovenox -) 40 mg SQ DAILY [facility] Last Admin: 01/05/18 11:07 Dose: 40 mg Hydralazine HCl (Apresoline -) 50 mg PO TID [facility] Last Admin: 01/05/18 14:44 Dose: 50 mg Piperacillin Sod/Tazobactam (Sod 3.375 gm/ Dextrose) 50 mls @ 100 mls/hr IVPB Q8H-IV [facility]; Protocol Last Admin: 01/05/18 17:47 Dose: 100 mls/hr Levothyroxine Sodium (Synthroid -) 100 mcg PO DAILY@0700 [facility] Last Admin: 01/05/18 08:38 Dose: 100 mcg Loratadine (Claritin -) 10 mg PO DAILY [facility] Last Admin: 01/05/18 11:07 Dose: 10 mg Lorazepam (Ativan -) 0.5 mg PO DAILY PRN PRN Reason: ANXIETY Last Admin: 01/04/18 22:53 Dose: 0.5 mg Metoprolol Succinate (Toprol Xl -) 50 mg PO BID [facility] Last Admin: 01/05/18 11:07 Dose: 50 mg Potassium Chloride (K-Dur -) 20 meq PO DAILY [facility] Last Admin: 01/05/18 11:07 Dose: 20 meq Sertraline HCl (Zoloft -) 50 mg PO DAILY [facility] Last Admin: 01/05/18 11:08 Dose: 50 mg Sodium Chloride (Sodium Chloride Tablet -) 1 gm PO BID [facility] Last Admin: 01/05/18 11:07 Dose: 1 gm 52 year old woman with hx of MS, Hyponatremia from SIADH, Resp failure with trach collar, recurrent UTI's who presented from home with weakness and lethargy and found to have Na of 124 #Acute on Chronic Hyponatremia (likely hypovolemic hyponatermia) #Hypotension/Bradycardia #Suspected UTI #MS serum Na improved but did not continue to rise with IVF will hold IVF now and continue salt tabs alone BP and HR improved Trend serum Na daily Thank you Will follow Tyshawn Doe DO
[2018-01-05] MEDS: LORazepam 0.5 MG TABLET PO PRN (21:48)
[2018-01-06] MEDS ORDERED: DEXTROSE 5%-WATER - 50 ML IVPB ONE ×3 (00:59→17:27)
[2018-01-06] MEDS ORDERED: PIPERACILLIN/TAZOBACTAM 3.375 GM VIAL IVPB ONE ×3 (00:59→17:27)
[2018-01-06] MEDS: PIPERACILLIN/TAZOB 3.375 GM 3.375 GM in DEXTROSE 5%-WATER - 50 ML IVPB SCH ×3 (01:57→17:28)
[2018-01-06] MEDS: LEVOTHYROXINE NA 100 MCG TABLET (FP) PO SCH (06:40)
[2018-01-06] MEDS: hydrALAZINE HCL 50 MG TABLET (FP) PO SCH ×3 (06:40→21:32)
[2018-01-06] MEDS: carBAMazepine 100 MG TAB.CHEW PO SCH ×3 (07:59→21:32)
[2018-01-06] MEDS: ALBUTEROL SO4 0.083% IH SOL 2.5 MG/3 ML VIAL.NEB. NEB PRN (08:45)
[2018-01-06] MEDS ORDERED: PT OWN MED DRAWER 7, Y5N ONE ×2 (10:39→13:43)
[2018-01-06] MEDS: SERTRALINE HCL 50 MG TABLET (FP) PO SCH (10:41)
[2018-01-06] MEDS: ENOXAPARIN NA (PORCINE) 40 MG/0.4 ML DISP.SYRIN SQ SCH (10:43)
[2018-01-06] MEDS: POTASSIUM CHLORIDE TABS 20 MEQ TABLET.ER (FP) PO SCH (10:43)
[2018-01-06] MEDS: SODIUM CHLORIDE 1 GM TABLET PO SCH ×2 (10:43→21:32)
[2018-01-06] MEDS: LORATADINE 10 MG TABLET PO SCH (10:43)
--- NOTE | 2018-01-06 11:37 | PN ---
Progress Note (short form) - Note Progress Note: Awake, responsive in NAD on NC O2. Mother at bedside. Reports that she appears better than yesterday. Intake & Output 01/03/18 01/04/18 01/05/18 01/06/18 23:59 23:59 23:59 23:59 Intake Total 475 50 Output Total 900 300 Balance -425 -250 Weight 160 lb 159 lb 9.6 oz 159 lb Last Vital Signs Temp Pulse Resp BP Pulse Ox 97.9 F 82 16 155/76 98 01/06/18 09:25 01/06/18 10:07 01/06/18 09:25 01/06/18 09:25 01/06/18 10:07 Active Medications Albuterol Sulfate (Ventolin 0.083% Nebulizer Soln -) 1 amp NEB Q6H PRN PRN Reason: SHORT OF BREATH/WHEEZING Last Admin: 01/06/18 08:45 Dose: 1 amp Carbamazepine (Tegretol -) 100 mg PO TID [facility] Last Admin: 01/06/18 07:59 Dose: 100 mg Enoxaparin Sodium (Lovenox -) 40 mg SQ DAILY [facility] Last Admin: 01/06/18 10:43 Dose: 40 mg Hydralazine HCl (Apresoline -) 50 mg PO TID [facility] Last Admin: 01/06/18 06:40 Dose: Not Given Piperacillin Sod/Tazobactam (Sod 3.375 gm/ Dextrose) 50 mls @ 100 mls/hr IVPB Q8H-IV [facility]; Protocol Last Admin: 01/06/18 10:43 Dose: 100 mls/hr Levothyroxine Sodium (Synthroid -) 100 mcg PO DAILY@0700 [facility] Last Admin: 01/06/18 06:40 Dose: 100 mcg Loratadine (Claritin -) 10 mg PO DAILY [facility] Last Admin: 01/06/18 10:43 Dose: 10 mg Lorazepam (Ativan -) 0.5 mg PO DAILY PRN PRN Reason: ANXIETY Last Admin: 01/05/18 21:48 Dose: 0.5 mg Metoprolol Succinate (Toprol Xl -) 50 mg PO BID [facility] Last Admin: 01/06/18 10:43 Dose: 50 mg Potassium Chloride (K-Dur -) 20 meq PO DAILY [facility] Last Admin: 01/06/18 10:43 Dose: 20 meq Sertraline HCl (Zoloft -) 50 mg PO DAILY [facility] Last Admin: 01/06/18 10:41 Dose: 50 mg Sodium Chloride (Sodium Chloride Tablet -) 1 gm PO BID [facility] Last Admin: 01/06/18 10:43 Dose: 1 gm Constitutional: Yes: No Distress, Calm Eyes: Yes: Conjunctiva Clear HENT: Yes: Atraumatic Cardiovascular: Yes: Regular Rate and Rhythm, S1, S2. No: Bradycardia, Tachycardia, Pulse Irregular, Bruit, JVD, Gallop, Murmur, Rub, S3, S4, Varicosities Respiratory: Yes: Few basilar Rhonchi, No Wheezes Gastrointestinal: Yes: Normal Bowel Sounds, Soft. No: Distention, Tenderness Musculoskeletal: Yes: Muscle Weakness Peripheral Pulses WNL: Yes Neurological: Yes: Alert, Oriented Psychiatric: Yes: Alert, Oriented Labs: Laboratory Results - last 24 hr 01/06/18 00:00 Ur Random Sodium 113 Problem List - Problems (1) Bradycardia Code(s): R00.1 - BRADYCARDIA, UNSPECIFIED (2) Hyponatremia Code(s): E87.1 - HYPO-OSMOLALITY AND HYPONATREMIA (3) Anemia Code(s): D64.9 - ANEMIA, UNSPECIFIED Qualifiers: Other causes of anemia: other cause, not classified (4) Chronic respiratory failure Code(s): J96.10 - CHRONIC RESPIRATORY FAILURE, UNSP W HYPOXIA OR HYPERCAPNIA (5) Congestion of upper airway Code(s): J98.8 - OTHER SPECIFIED RESPIRATORY DISORDERS (6) Functional quadriplegia Code(s): R53.2 - FUNCTIONAL QUADRIPLEGIA (7) HTN (hypertension) Code(s): I10 - ESSENTIAL (PRIMARY) HYPERTENSION (8) Hypothermia Code(s): T68.XXXA - HYPOTHERMIA, INITIAL ENCOUNTER Qualifiers: Encounter type: initial encounter Qualified Code(s): T68.XXXA - Hypothermia , initial encounter (9) Multiple sclerosis Code(s): G35 - MULTIPLE SCLEROSIS (10) Muscle spasticity Code(s): M62.838 - OTHER MUSCLE SPASM IMP CHRONIC RESPIRATORY FAILURE ADVANCED MS BRADYCARDIA HYPOTHERMIA H/O UTIs/SEPSIS HYPONATREMIA PLAN Supplemental O2 as needed / VENT SUPPORT AT NIGHT INHALED BRONCHODILATORS ABX FOLLOW CULTURES TRACHEAL SUCTIONING NEEDED DR [id number]
--- NOTE | 2018-01-06 12:48 | PN ---
Progress Note, Physician Chief Complaint: pateint seen and examined in bed awake alert conversant has lost weight - Current Medication List Current Medications: Active Medications Albuterol Sulfate (Ventolin 0.083% Nebulizer Soln -) 1 amp NEB Q6H PRN PRN Reason: SHORT OF BREATH/WHEEZING Last Admin: 01/06/18 08:45 Dose: 1 amp Carbamazepine (Tegretol -) 100 mg PO TID [facility] Last Admin: 01/06/18 07:59 Dose: 100 mg Enoxaparin Sodium (Lovenox -) 40 mg SQ DAILY [facility] Last Admin: 01/06/18 10:43 Dose: 40 mg Hydralazine HCl (Apresoline -) 50 mg PO TID [facility] Last Admin: 01/06/18 06:40 Dose: Not Given Piperacillin Sod/Tazobactam (Sod 3.375 gm/ Dextrose) 50 mls @ 100 mls/hr IVPB Q8H-IV [facility]; Protocol Last Admin: 01/06/18 10:43 Dose: 100 mls/hr Levothyroxine Sodium (Synthroid -) 100 mcg PO DAILY@0700 [facility] Last Admin: 01/06/18 06:40 Dose: 100 mcg Loratadine (Claritin -) 10 mg PO DAILY [facility] Last Admin: 01/06/18 10:43 Dose: 10 mg Lorazepam (Ativan -) 0.5 mg PO DAILY PRN PRN Reason: ANXIETY Last Admin: 01/05/18 21:48 Dose: 0.5 mg Metoprolol Succinate (Toprol Xl -) 50 mg PO BID [facility] Last Admin: 01/06/18 10:43 Dose: 50 mg Potassium Chloride (K-Dur -) 20 meq PO DAILY [facility] Last Admin: 01/06/18 10:43 Dose: 20 meq Sertraline HCl (Zoloft -) 50 mg PO DAILY [facility] Last Admin: 01/06/18 10:41 Dose: 50 mg Sodium Chloride (Sodium Chloride Tablet -) 1 gm PO BID [facility] Last Admin: 01/06/18 10:43 Dose: 1 gm - Objective Vital Signs: Vital Signs Temperature 97.9 F 01/06/18 09:25 Pulse Rate 82 01/06/18 10:07 Respiratory Rate 16 01/06/18 09:25 Blood Pressure 155/76 01/06/18 09:25 O2 Sat by Pulse Oximetry (%) 98 01/06/18 10:07 Constitutional: Yes: Calm Neck: Yes: Other (trach) Cardiovascular: Yes: Regular Rate and Rhythm, S1, S2 Respiratory: Yes: Rhonchi (scattered) Gastrointestinal: Yes: Normal Bowel Sounds, Soft Edema: No Neurological: Yes: Pre-Existing Deficit Labs: CBC, BMP 01/05/18 06:00 01/05/18 06:00 INR, PTT INR 1.07 (0.83-1.09) 01/03/18 16:56 Problem List - Problems (1) Hypothyroid Assessment/Plan: synthroid tsh is normal Code(s): E03.9 - HYPOTHYROIDISM, UNSPECIFIED (2) Bradycardia Assessment/Plan: improved on metorpolol tsh is normal Code(s): R00.1 - BRADYCARDIA, UNSPECIFIED (3) Hyponatremia Assessment/Plan: salt tab fluid restriction renal on board Code(s): E87.1 - HYPO-OSMOLALITY AND HYPONATREMIA (4) Trigeminal neuralgia Assessment/Plan: tegretol Code(s): G50.0 - TRIGEMINAL NEURALGIA (5) Urinary tract infection Assessment/Plan: zosyn pr ID awaiting final culture report Code(s): N39.0 - URINARY TRACT INFECTION, SITE NOT SPECIFIED Qualifiers: Urinary tract infection type: site unspecified Hematuria presence: without hematuria Qualified Code(s): N39.0 - Urinary tract infection, site not specified (6) Multiple sclerosis Assessment/Plan: s/p trach frequent turn postions wounds seen by Dr gilmore collagen dressing to wounds three times a week Code(s): G35 - MULTIPLE SCLEROSIS
--- NOTE | 2018-01-06 13:58 | PN ---
Progress Note, Physician Chief Complaint: The patient seen in her room. seems comfortable. alert. History of Present Illness: 52 year old woman with hx of MS, Hyponatremia from SIADH, Resp failure with Trach collar, recurrent UTI's who presented from home with weakness and lethargy and found to have Na of 124 - Current Medication List Current Medications: Active Medications Albuterol Sulfate (Ventolin 0.083% Nebulizer Soln -) 1 amp NEB Q6H PRN PRN Reason: SHORT OF BREATH/WHEEZING Last Admin: 01/06/18 08:45 Dose: 1 amp Carbamazepine (Tegretol -) 100 mg PO TID [facility] Last Admin: 01/06/18 07:59 Dose: 100 mg Enoxaparin Sodium (Lovenox -) 40 mg SQ DAILY [facility] Last Admin: 01/06/18 10:43 Dose: 40 mg Hydralazine HCl (Apresoline -) 50 mg PO TID [facility] Last Admin: 01/06/18 06:40 Dose: Not Given Piperacillin Sod/Tazobactam (Sod 3.375 gm/ Dextrose) 50 mls @ 100 mls/hr IVPB Q8H-IV [facility]; Protocol Last Admin: 01/06/18 10:43 Dose: 100 mls/hr Levothyroxine Sodium (Synthroid -) 100 mcg PO DAILY@0700 [facility] Last Admin: 01/06/18 06:40 Dose: 100 mcg Loratadine (Claritin -) 10 mg PO DAILY [facility] Last Admin: 01/06/18 10:43 Dose: 10 mg Lorazepam (Ativan -) 0.5 mg PO DAILY PRN PRN Reason: ANXIETY Last Admin: 01/05/18 21:48 Dose: 0.5 mg Metoprolol Succinate (Toprol Xl -) 50 mg PO BID [facility] Last Admin: 01/06/18 10:43 Dose: 50 mg Potassium Chloride (K-Dur -) 20 meq PO DAILY [facility] Last Admin: 01/06/18 10:43 Dose: 20 meq Sertraline HCl (Zoloft -) 50 mg PO DAILY [facility] Last Admin: 01/06/18 10:41 Dose: 50 mg Sodium Chloride (Sodium Chloride Tablet -) 1 gm PO BID [facility] Last Admin: 01/06/18 10:43 Dose: 1 gm - Objective Vital Signs: Vital Signs Temperature 97.9 F 11/01/18 09:25 Pulse Rate 82 01/06/18 10:07 Respiratory Rate 16 01/06/18 09:25 Blood Pressure 155/76 01/06/18 09:25 O2 Sat by Pulse Oximetry (%) 98 01/06/18 10:07 Constitutional: Yes: No Distress Eyes: Yes: Conjunctiva Clear HENT: Yes: Normocephalic Neck: Yes: Trachea Midline Respiratory: Yes: Diminished, Other (On tracheal collar) Labs: CBC, BMP 01/05/18 06:00 01/05/18 06:00 INR, PTT INR 1.07 (0.83-1.09) 01/03/18 16:56 Assessment/Plan 52 year old woman with hx of MS, Hyponatremia from SIADH, Resp failure with trach collar, recurrent UTI's who presented from home with weakness and lethargy and found to have Na of 124 Serum sodium has improved since admission. No lab data available from today. Will order for tomorrow. Zuleika Pereyra MD
--- NOTE | 2018-01-06 18:51 | PN ---
Progress Note, Physician History of Present Illness: More awake and alert No acute distress Afebrile BC (-) Urine c/s E coli - Current Medication List Current Medications: Active Medications Albuterol Sulfate (Ventolin 0.083% Nebulizer Soln -) 1 amp NEB Q6H PRN PRN Reason: SHORT OF BREATH/WHEEZING Last Admin: 01/06/18 08:45 Dose: 1 amp Carbamazepine (Tegretol -) 100 mg PO TID [facility] Last Admin: 01/06/18 13:50 Dose: 100 mg Enoxaparin Sodium (Lovenox -) 40 mg SQ DAILY [facility] Last Admin: 01/06/18 10:43 Dose: 40 mg Hydralazine HCl (Apresoline -) 50 mg PO TID [facility] Last Admin: 01/06/18 13:56 Dose: 50 mg Piperacillin Sod/Tazobactam (Sod 3.375 gm/ Dextrose) 50 mls @ 100 mls/hr IVPB Q8H-IV [facility]; Protocol Last Admin: 01/06/18 17:28 Dose: 100 mls/hr Levothyroxine Sodium (Synthroid -) 100 mcg PO DAILY@0700 [facility] Last Admin: 01/06/18 06:40 Dose: 100 mcg Loratadine (Claritin -) 10 mg PO DAILY [facility] Last Admin: 01/06/18 10:43 Dose: 10 mg Lorazepam (Ativan -) 0.5 mg PO DAILY PRN PRN Reason: ANXIETY Last Admin: 01/05/18 21:48 Dose: 0.5 mg Metoprolol Succinate (Toprol Xl -) 50 mg PO BID [facility] Last Admin: 01/06/18 10:43 Dose: 50 mg Potassium Chloride (K-Dur -) 20 meq PO DAILY [facility] Last Admin: 01/06/18 10:43 Dose: 20 meq Sertraline HCl (Zoloft -) 50 mg PO DAILY [facility] Last Admin: 01/06/18 10:41 Dose: 50 mg Sodium Chloride (Sodium Chloride Tablet -) 1 gm PO BID [facility] Last Admin: 01/06/18 10:43 Dose: 1 gm - Objective Vital Signs: Vital Signs Temperature 97.3 F L 01/06/18 13:45 Pulse Rate 63 01/06/18 13:45 Respiratory Rate 16 01/06/18 13:45 Blood Pressure 147/78 01/06/18 13:45 O2 Sat by Pulse Oximetry (%) 92 L 01/06/18 16:00 Constitutional: Yes: No Distress Eyes: Yes: Conjunctiva Clear Cardiovascular: Yes: Regular Rate and Rhythm, S1, S2 Respiratory: Yes: Diminished Gastrointestinal: Yes: Normal Bowel Sounds, Soft Edema: No Labs: CBC, BMP 01/05/18 06:00 01/05/18 06:00 INR, PTT INR 1.07 (0.83-1.09) 01/03/18 16:56 Assessment/Plan UTI R/O sepsis secondary to UTI Neurogenic bladder/ indwelling perera Hypotension/bradycardia Substitute ceftriaxone qd Discussed with family at bedside
[2018-01-06] MEDS: LORazepam 0.5 MG TABLET PO PRN (21:32)
[2018-01-07] MEDS: carBAMazepine 100 MG TAB.CHEW PO SCH ×2 (06:58→14:19)
[2018-01-07] MEDS: hydrALAZINE HCL 50 MG TABLET (FP) PO SCH ×2 (06:59→14:19)
[2018-01-07] MEDS: LEVOTHYROXINE NA 100 MCG TABLET (FP) PO SCH (06:59)
[2018-01-07 07:51] LABS: BASO % 0.2 % (0-2.0); EOS % 0.7 % (0-4.5); HEMATOCRIT 25.3 % (32.4-45.2); HEMOGLOBIN 8.1 GM/dL (10.7-15.3); LYMPH % 7.6 % (8-40); MCH 30.9 pg (25.7-33.7); MCHC 32.1 g/dl (32.0-36.0); MEAN CELL VOLUME 96.4 fl (80-96); MEAN PLT VOLUME 8.7 fl (7.5-11.1); NEUT % 88.5 % (42.8-82.8); PLATELET COUNT 101 K/MM3 (134-434); RBC 2.63 M/mm3 (3.60-5.2); RDW 14.5 % (11.6-15.6); WHITE BLOOD COUNT 7.9 K/mm3 (4.0-10.0)
[2018-01-07 08:40] LABS: ALBUMIN 2.2 g/dl (3.4-5.0); ALK PHOS 221 U/L (45-117); ANION GAP 9 MMOL/L (8-16); BILIRUBIN,TOTAL 0.4 mg/dL (0.2-1); BLOOD UREA NITROGEN 8 mg/dL (7-18); CALCIUM 9.3 mg/dL (8.5-10.1); CHLORIDE 94 mmol/L (98-107); CO2 28 mmol/L (21-32); CREATININE 0.4 mg/dL (0.55-1.3); GLUCOSE,RANDOM 62 mg/dL (74-106); SGOT/AST 25 U/L (15-37); SGPT/ALT 28 U/L (13-61); SODIUM 131 mmol/L (136-145); TOT PROT 5.9 g/dl (6.4-8.2)
[2018-01-07] MEDS ORDERED: PT OWN MED DRAWER 7, Y5N ONE ×4 (09:44→14:14)
[2018-01-07] MEDS ORDERED: DEXTROSE 5%-WATER 100 ML IVPB ONE ×2 (09:45)
[2018-01-07] MEDS: LORATADINE 10 MG TABLET PO SCH (09:50)
[2018-01-07] MEDS: POTASSIUM CHLORIDE TABS 20 MEQ TABLET.ER (FP) PO SCH (09:50)
[2018-01-07] MEDS: SODIUM CHLORIDE 1 GM TABLET PO SCH (09:50)
[2018-01-07] MEDS: ENOXAPARIN NA (PORCINE) 40 MG/0.4 ML DISP.SYRIN SQ SCH (09:50)
[2018-01-07] MEDS: SERTRALINE HCL 50 MG TABLET (FP) PO SCH (09:50)
[2018-01-07] MEDS ORDERED: CEFTRIAXONE 2 GM in DEXTROSE 5%-WATER 100 ML IVPB SCH (10:00)
--- NOTE | 2018-01-07 11:08 | DS ---
Physical Examination Vital Signs: Vital Signs Temperature 99.3 F 01/07/18 06:00 Pulse Rate 100 H 01/07/18 07:16 Respiratory Rate 20 01/07/18 06:00 Blood Pressure 132/76 01/07/18 06:00 O2 Sat by Pulse Oximetry (%) 96 01/07/18 07:16 Constitutional: Yes: Calm Neck: Yes: Other (trach) Cardiovascular: Yes: Regular Rate and Rhythm, S1, S2 Respiratory: Yes: CTA Bilaterally Gastrointestinal: Yes: Normal Bowel Sounds, Soft Edema: No Neurological: Yes: Pre-Existing Deficit Labs: CBC, BMP 01/07/18 06:35 01/07/18 06:35 Discharge Summary Reason For Visit: BRADYCARDIA/HYPONATREMIA Current Active Problems Bradycardia (Acute) Hyponatremia (Acute) Metabolic encephalopathy (Acute) Hospital Course: - Primary Care Physician PCP: Anne Lopez - Admission Chief Complaint: Abnormal Lab Value- Low Na History of Present Illness: This is a 52 y/o woman with a PMHx of MS,( Trach, Raza, Quadriplegia, Baclofen Pump), HTN, HLD, Hypothyroidism, Trigeminal Neuralgia, Legally Blind. Who presents to the ED with her mother sent in by her PMD for Hyponatremia. Na in outpatient 119. On arrival to ED patient was found to be in bradycardia 38. She was given atropine 0.5mg IV and placed on pacer pads and started on a Dopamine Infusion, per cardiology recommendation. At bedside patient is lethargic, her mother who is at bedside, reports that the patient had routine bloodwork and was notified by her PMD for admission. Per the mother, the patient has been under her care, and had no complaints. The mother denies patient having fever, chills, cough, dizziness, DAI, CP, palpitations, AP, N/V/D, constipation. in hosptial: 1 lire fluid restriction with salt tablets iv abx for uti zosyn then ceftriaxone- E.Coli in urine -dara change to ceftin seen by dr jeffries for wounds, frequent turn and postion pulm = oxygen in day and vent support at night Condition: Guarded - Instructions Diet, Activity, Other Instructions: ceftin 500mg po bid for 7 days Referrals: Anne Lopez MD [Primary Care Provider] - Disposition: HOME - Home Medications Comprehensive Discharge Medication List: Ambulatory Orders Levothyroxine [Synthroid -] 100 mcg PO DAILY@0700 #30 tablet 06/24/16 Sodium Chloride Tablet - 1 gm PO DAILY #30 tablet 06/24/16 hydrALAZINE HCL [Apresoline -] 50 mg PO TID 02/11/17 Carbamazepine 100 mg PO TID 01/03/18 Carbamazepine [Tegretol -] 100 mg PO TID 01/03/18 Furosemide [Lasix -] 20 mg PO DAILY 01/03/18 Loratadine 10 mg PO DAILY 01/03/18 Metoprolol Succinate 50 mg PO BID 01/03/18 Potassium Chloride [K-Dur -] 20 meq PO DAILY 01/03/18 Sertraline HCl 50 mg PO DAILY 01/03/18
[2018-01-07] MEDS: ALBUTEROL SO4 0.083% IH SOL 2.5 MG/3 ML VIAL.NEB. NEB PRN (12:48)
--- NOTE | 2018-01-07 13:51 | PN ---
Progress Note (short form) - Note Progress Note: PULMONARY Awake, responsive in NAD on NC O2. Mother at bedside. Active Medications reviewed Constitutional: Yes: No Distress, Calm Eyes: Yes: Conjunctiva Clear HENT: Yes: Atraumatic Cardiovascular: Yes: Regular Rate and Rhythm, S1, S2. No: Bradycardia, Tachycardia, Pulse Irregular, Bruit, JVD, Gallop, Murmur, Rub, S3, S4, Varicosities Respiratory: Yes: Few basilar Rhonchi, No Wheezes Gastrointestinal: Yes: Normal Bowel Sounds, Soft. No: Distention, Tenderness Musculoskeletal: Yes: Muscle Weakness Peripheral Pulses WNL: Yes Neurological: Yes: Alert, Oriented Psychiatric: Yes: Alert, Oriented labs/meds/notes reviewed IMP CHRONIC RESPIRATORY FAILURE ADVANCED MS BRADYCARDIA HYPOTHERMIA H/O UTIs/SEPSIS HYPONATREMIA PLAN Supplemental O2 as needed / VENT SUPPORT AT NIGHT INHALED BRONCHODILATORS ABX FOLLOW CULTURES TRACHEAL SUCTIONING NEEDED AWAITING DISCHARGE Chris TINEO MD
--- NOTE | 2018-01-07 14:29 | PN ---
Progress Note (short form) - Note Progress Note: Renal follow up for Hyponatremia Pt seen and examined at the bedside awake and alert no complaints awaiting discharge home no sob, cp, abd pain, confuison or lethargy Vital Signs Temperature 98.3 F 01/07/18 11:00 Pulse Rate 104 H 01/07/18 12:47 Respiratory Rate 20 01/07/18 11:00 Blood Pressure 155/86 01/07/18 11:00 O2 Sat by Pulse Oximetry (%) 92 L 01/07/18 12:47 NAD no LE edema CBC, BMP 01/07/18 06:35 01/07/18 06:35 Current Medications Albuterol Sulfate (Ventolin 0.083% Nebulizer Soln -) 1 amp NEB Q6H PRN PRN Reason: SHORT OF BREATH/WHEEZING Last Admin: 01/07/18 12:48 Dose: 1 amp Carbamazepine (Tegretol -) 100 mg PO TID [facility] Last Admin: 01/07/18 14:19 Dose: 100 mg Enoxaparin Sodium (Lovenox -) 40 mg SQ DAILY [facility] Last Admin: 01/07/18 09:50 Dose: 40 mg Hydralazine HCl (Apresoline -) 50 mg PO TID [facility] Last Admin: 01/07/18 14:19 Dose: 50 mg Ceftriaxone Sodium 2 gm/ (Dextrose) 100 mls @ 200 mls/hr IVPB DAILY [facility]; Protocol Last Admin: 01/07/18 09:49 Dose: 200 mls/hr Levothyroxine Sodium (Synthroid -) 100 mcg PO DAILY@0700 [facility] Last Admin: 01/07/18 06:59 Dose: 100 mcg Loratadine (Claritin -) 10 mg PO DAILY [facility] Last Admin: 01/07/18 09:50 Dose: 10 mg Lorazepam (Ativan -) 0.5 mg PO DAILY PRN PRN Reason: ANXIETY Last Admin: 01/06/18 21:32 Dose: 0.5 mg Metoprolol Succinate (Toprol Xl -) 50 mg PO BID [facility] Last Admin: 01/07/18 09:50 Dose: 50 mg Potassium Chloride (K-Dur -) 20 meq PO DAILY [facility] Last Admin: 01/07/18 09:50 Dose: 20 meq Sertraline HCl (Zoloft -) 50 mg PO DAILY [facility] Last Admin: 01/07/18 09:50 Dose: 50 mg Sodium Chloride (Sodium Chloride Tablet -) 1 gm PO BID [facility] Last Admin: 01/07/18 09:50 Dose: 1 gm 52 year old woman with hx of MS, Hyponatremia from SIADH, Resp failure with trach collar, recurrent UTI's who presented from home with weakness and lethargy and found to have Na of 124 #Acute on Chronic Hyponatremia (likely hypovolemic hyponatermia) corrected with IVF #Hypotension/Bradycardia #Suspected UTI #MS Serum Na is now stable continue sodium chloride tabs 1g BID continue 1L fluid restriction stable for discharge should have labs repeated in 3-5 days if any change in MS should have repeat labs done completed course of IV Abx for UTI Tyshawn Doe DO
[2018-01-07 15:13] VITALS: BP 148/82; PULSE 98; TEMP 98
== END 2018-01-07 15:40 | disposition home or self-care (01) | DRG 643 ==
LOC: JER 15:30 → JERBED 18:14 → J5S 01-04 21:16
PROVIDERS: ADMIT Family Medicine; ATTEND Family Medicine
PROC: 5A1945Z Respiratory Ventilation, 24-96 Consecutive Hours (ICD-10-PCS; principal; 2018-01-03)
DX: E22.2 Syndrome of inappropriate secretion of antidiuretic hormone (principal); L89.154 Pressure ulcer of sacral region, stage 4; R53.2 Functional quadriplegia; G93.41 Metabolic encephalopathy; J93.12 Secondary spontaneous pneumothorax; N39.0 Urinary tract infection, site not specified; J96.10 Chronic respiratory failure, unspecified whether with hypoxia or hypercapnia; Z93.0 Tracheostomy status; G35 Multiple sclerosis; R00.1 Bradycardia, unspecified; I95.9 Hypotension, unspecified; R68.0 Hypothermia, not associated with low environmental temperature; I10 Essential (primary) hypertension; E03.9 Hypothyroidism, unspecified; E78.5 Hyperlipidemia, unspecified; H54.8 Legal blindness, as defined in USA; G50.0 Trigeminal neuralgia; Z93.1 Gastrostomy status; N31.9 Neuromuscular dysfunction of bladder, unspecified; D64.9 Anemia, unspecified; K59.00 Constipation, unspecified; I44.0 Atrioventricular block, first degree
CPT/HCPCS: 36415; 71045-TC-FY; 80048; 80053; 81003; 83605; 83735; 83930; 83935; 84100; 84295; 84300; 84439; 84443; 84484; 85025; 85610; 87040; 87070; 87077; 87081; 87086; 87186; 87205; 93005; 93010; 94002; 94640; 99285-25; J7030

== ENCOUNTER 2018-01-25 16:14 | Inpatient (IN) | payer OTHER ==
--- NOTE | 2018-01-25 16:43 | PDOC ---
History of Present Illness - General Stated Complaint: WOUND Time Seen by Provider: 01/25/18 16:42 - History of Present Illness Initial Comments: 01/25/18 17:59 The patient is a 52 year old female with a history of HTN, Seizures, MS, Quadrapalegia s/p trach and peg who presents for admission for a wound infection. The patient notes having a sacral ulcer that has progressively worsened over the past few weeks. She notes that she was seen by Dr. Miranda and sent for admission for iv antibiotics. She otherwise denies fevers, chills , SOB, chest pain, nausea, vomiting, abdominal pain, or changes with urination or bowel movements. Past History - Past Medical History Allergies/Adverse Reactions: Allergies Allergy/AdvReac Type Severity Reaction Status Date / Time chloral hydrate Allergy Intermediate Rash Verified 01/03/18 16:02 [Chloral Hydrate] azathioprine [From Imuran] Allergy Rash Verified 01/03/18 16:02 azathioprine sodium Allergy Rash Verified 01/03/18 16:02 [From Imuran] adhesive tape AdvReac Severe sensitivity Verified 01/03/18 16:02 to glue adhesive AdvReac Unknown Verified 01/03/18 16:02 Home Medications: Ambulatory Orders Levothyroxine [Synthroid -] 100 mcg PO DAILY@0700 #30 tablet 06/24/16 Sodium Chloride Tablet - 1 gm PO DAILY #30 tablet 06/24/16 hydrALAZINE HCL [Apresoline -] 50 mg PO TID 02/11/17 Carbamazepine 100 mg PO TID 01/03/18 Loratadine 10 mg PO DAILY 01/03/18 Metoprolol Succinate 50 mg PO BID 01/03/18 Potassium Chloride [K-Dur -] 20 meq PO DAILY 01/03/18 Sertraline HCl 50 mg PO DAILY 01/03/18 Cefuroxime Axetil [Ceftin -] 500 mg PO Q12H #14 tablet 01/07/18 Gentamicin Sulfate 30 gm TP DAILY 7 Days #1 cream..g. 01/12/18 Lidocaine 4% Topical [Xylocaine 4% Topical -] 1 applic MM BID #1 btl 01/12/18 Anemia: No Asthma: No Cancer: No Cardiac Disorders: No CVA: No COPD: No CHF: No DVT: No Dementia: (M.S,TRIG.NEUROLAGIA) Diabetes: No GI Disorders: Yes Disorders: Yes (baclofen implant) HTN: Yes Hypercholesterolemia: No Liver Disease: No Seizures: Yes Thyroid Disease: No - Surgical History Abdominal Surgery: No Appendectomy: No Cardiac Surgery: No Cholecystectomy: No GI Surgery: (BACLOFEN IMPLANT) Lung Surgery: Yes (TRACH) Neurologic Surgery: No Orthopedic Surgery: No - Immunization History Immunization Up to Date: Yes - Suicide/Smoking/Psychosocial Hx Smoking Status: No Smoking History: Never smoked Have you smoked in the past 12 months: No Number of Cigarettes Smoked Daily: 0 Cigars Per Day: 0 Hx Alcohol Use: No Drug/Substance Use Hx: No Substance Use Type: None Hx Substance Use Treatment: No Review of Systems - Review of Systems Comments:: 01/25/18 18:01 Constitutional: No fevers, chills, fatigue, malaise HEENT: No Rhinorrhea, nasal congestion, visual changes Cardiovascular: No chest pain, syncope, palpitations, lightheadedness Respiratory: No Cough, SOB, Hemoptysis, Gastrointestinal: No Abdominal pain, Nausea, Vomiting, Constipation, Diarrhea, Melena Genitourinary: No Dysuria, Frequency, Urgency, Hesitancy, Hematuria, Flank pain Musculoskeletal: No Myalgia, arthralgia Skin: Sacral Ulcer. No rashes, itching, bruising, pallor Neurologic: No Headache, Dizziness, Numbness, Weakness, or Tingling Psychiatric: No Hallucinations. No SI or HI *Physical Exam - Physical Exam Comments: 01/25/18 18:04 General Appearance: Nourished. No Apparent Distress HEENT: Trach in place. No Pharyngeal Erythema, Tonsillar Exudate, Tonsillar Erythema Neck: No Cervical Lymphadenopathy Respiratory/Chest: Lungs Clear, Normal Breath Sounds. No Crackles, Rales, Rhonchi, Wheezing Cardiovascular: Regular Rhythm, Regular Rate. No Murmur, Gallops, Rubs Gastrointestinal/Abdominal: Normal Bowel Sounds, Soft. No Guarding, Rebound, Tenderness Musculoskeletal: No CVA Tenderness Extremity: Stage 4 sacral ulcer 9cm by 4cm with extensive erythema and purulent drainage. Normal Capillary Refill Integumentary: Normal Color, Dry, Warm Neurologic:Fully Oriented, Alert, Normal Mood/Affect, Normal Response, ED Treatment Course - LABORATORY CBC & Chemistry Diagram: 01/25/18 17:43 01/25/18 17:43 Medical Decision Making - Medical Decision Making 01/25/18 18:05 The patient is a 52 year old female with a history of HTN, Seizures, MS, Quadrapalegia s/p trach and peg who presents for admission for a wound infection. Given the patient's history and physical exam, we will obtain a cbc , cmp, ekg, chest plain film, blood cultures, ua, urine cultures to evaluate further. We will treat with vanc and zosyn and the patient will require admission for further management. We discussed the case with Dr. Lopez who accepted the patient for admission. *DC/Admit/Observation/Transfer Diagnosis at time of Disposition: Wound infection Decubital ulcer Qualifiers: Pressure injury location: unspecified location Pressure injury stage: unspecified pressure injury stage Qualified Code(s): L89.90 - Pressure ulcer of unspecified site, unspecified stage - Discharge Dispostion Condition at time of disposition: Stable Decision to Admit order: Yes - Referrals - Patient Instructions - Post Discharge Activity
[2018-01-25] MEDS ORDERED: VANCOMYCIN 1,250 MG in DEXTROSE 5%-WATER - 250 ML IVPB ONE (16:56)
[2018-01-25] MEDS ORDERED: PIPERACILLIN/TAZOB 4.5 GM 4.5 GM in DEXTROSE 5%-WATER 100 ML IVPB ONE (16:56)
--- NOTE | 2018-01-25 17:42 | PDOC ---
Attending Attestation - Physicial Exam PE: 01/25/18 23:27 GENERAL: Well-appearing, well-nourished. No apparent distress. HEENT: (+) trach intact. Normocephalic, atraumatic. PERRL, EOM intact. CARDIOVASCULAR: Normal S1, S2. Regular rate and rhythm. PULMONARY: Clear to auscultation bilaterally. ABDOMEN: (+) perera in place. Soft, non-distended, non-tender. EXTREMITIES: Normal ROM in all four extremities. No gross deformities. SKIN: (+) Stage 4 decubitus ulcer measuring approximately 9cm x 4cm with surrounding area of erythema to buttocks blaterally. Warm, dry. NEUROLOGICAL: No focal neurological deficits. - Medical Decision Making 01/25/18 23:27 Documentation prepared by Kaylan Hernandez, acting as medical surgery nurse for Sharon Tran MD <Kaylan Hernandez - Last Filed: 01/25/18 23:30> - Resident Resident Name: Alexi Ashley - ED Attending Attestation I have performed the following: I have examined & evaluated the patient, The case was reviewed & discussed with the resident, I agree w/resident's findings & plan, Exceptions are as noted - HPI HPI: 01/25/18 17:41 52-year-old female with functional quadriplegic , history of multiple sclerosis was sent from wound care for admission for IV antibiotics for her worsening decubitus ulcer - Physicial Exam PE: 01/25/18 23:13 52 yo female with multiple sclerosis , trach ,functional quadraplegia is here for nonhealing wound head ncat neck intact trach lungs - Medical Decision Making 01/26/18 02:45 pt has stage 4 decubitus ulcer and is bring admitted for further wound care and antibiotics <Sharon Tran - Last Filed: 01/26/18 02:45>
[2018-01-25] MEDS ORDERED: VANCOMYCIN 1 GRAM (PRE-DOCKED) 1,000 MG/250 ML BAG IVPB ONE (17:57)
[2018-01-25 17:59] LABS: BASO % 0.8 % (0-2.0); HEMATOCRIT 27.7 % (32.4-45.2); HEMOGLOBIN 9.4 GM/dL (10.7-15.3); LYMPH % 21.7 % (8-40); MCH 32.7 pg (25.7-33.7); MCHC 34.1 g/dl (32.0-36.0); MEAN CELL VOLUME 95.9 fl (80-96); MONO % 9.3 % (3.8-10.2); NEUT % 67.2 % (42.8-82.8); PLATELET COUNT 477 K/MM3 (134-434); RBC 2.89 M/mm3 (3.60-5.2); RDW 14.7 % (11.6-15.6); WHITE BLOOD COUNT 6.3 K/mm3 (4.0-10.0)
[2018-01-25 18:05] LABS: URINE APPEARANCE CLEAR; URINE BILIRUBIN NEGATIVE (<2.0 mg/dL); URINE COLOR STRAW; URINE GLUCOSE (UA) 3+ (NEGATIVE); URINE KETONE NEGATIVE (NEGATIVE); URINE LEUK ESTERASE 3+ (NEGATIVE); URINE NITRITE POSITIVE (NEGATIVE); URINE PROTEIN NEGATIVE (NEGATIVE); URINE UROBILINOGEN NEGATIVE mg/dL (0.2-1.0)
[2018-01-25 18:13] LABS: INR 1.03 (0.83-1.09); PROTHROMBIN TIME (PATIENT) 12.2 SEC (9.7-13.0)
[2018-01-25 18:15] LABS: ACTIVATED PTT 38.7 SECONDS (25.2-36.5)
[2018-01-25 18:32] LABS: ALBUMIN 2.6 g/dl (3.4-5.0); ALK PHOS 188 U/L (45-117); ANION GAP 5 MMOL/L (8-16); BILIRUBIN,TOTAL 0.1 mg/dL (0.2-1); BLOOD UREA NITROGEN 16 mg/dL (7-18); CALCIUM 9.1 mg/dL (8.5-10.1); CHLORIDE 100 mmol/L (98-107); CO2 31 mmol/L (21-32); CREATININE 0.5 mg/dL (0.55-1.3); GLUCOSE,RANDOM 87 mg/dL (74-106); POTASSIUM 5.2 mmol/L (3.5-5.1); SGOT/AST 32 U/L (15-37); SGPT/ALT 24 U/L (13-61); SODIUM 136 mmol/L (136-145); TOT PROT 7.6 g/dl (6.4-8.2)
[2018-01-25 18:51] LABS: URINE BACTERIA MODERATE /hpf (NONE SEEN); URINE MUCUS RARE
--- NOTE | 2018-01-26 03:47 | HP ---
CHIEF COMPLAINT: sacral decubitus ulcers PCP: Jessica HISTORY OF PRESENT ILLNESS: 52 year old female with a history of HTN, Seizures, hypothyrodism, MS, Quadrapalegia, baclofen pump s/p trach and peg, presented for admission for a sacral wound infection which has been worsening over the past several weeks. Dr. Miranda (visiting wound care physician) sent patient to ER due to concern for infection and need for IV antibiotics. Patient does not have any significant complaints at this time. No fevers, chills, or shortness of breath. ER course was notable for: (1) vancomcyin (2) zosyn (3) blood cultures Recent Travel: no PAST MEDICAL HISTORY: HTN, Seizures, MS, Quadrapalegia s/p trach and peg PAST SURGICAL HISTORY: trach, peg, abdomen baclofen pump insertion Social History: Smoking: no Alcohol: no Drugs: no Family History: Allergies chloral hydrate [Chloral Hydrate] Allergy (Intermediate, Verified 01/03/18 16:02 ) Rash azathioprine [From Imuran] Allergy (Verified 01/03/18 16:02) Rash azathioprine sodium [From Imuran] Allergy (Verified 01/03/18 16:02) Rash adhesive tape Adverse Reaction (Severe, Verified 01/03/18 16:02) sensitivity to glue adhesive Adverse Reaction (Unknown, Verified 01/03/18 16:02) HOME MEDICATIONS: Home Medications Medication Instructions Recorded Levothyroxine [Synthroid -] 100 mcg PO DAILY@0700 #30 tablet 06/24/16 Sodium Chloride Tablet - 1 gm PO DAILY #30 tablet 06/24/16 hydrALAZINE HCL [Apresoline -] 50 mg PO TID 02/11/17 Carbamazepine 100 mg PO TID 01/03/18 Loratadine 10 mg PO DAILY 01/03/18 Metoprolol Succinate 50 mg PO BID 01/03/18 Potassium Chloride [K-Dur -] 20 meq PO DAILY 01/03/18 Sertraline HCl 50 mg PO DAILY 01/03/18 Cefuroxime Axetil [Ceftin -] 500 mg PO Q12H #14 tablet 01/07/18 Gentamicin Sulfate 30 gm TP DAILY 7 Days #1 cream..g. 01/12/18 Lidocaine 4% Topical [Xylocaine 4% 1 applic MM BID #1 btl 01/12/18 Topical -] REVIEW OF SYSTEMS CONSTITUTIONAL: Absent: fever, chills, diaphoresis, generalized weakness, malaise, loss of appetite, weight change HEENT: Absent: rhinorrhea, nasal congestion, throat pain, throat swelling, difficulty swallowing, mouth swelling, ear pain, eye pain, visual changes CARDIOVASCULAR: Absent: chest pain, syncope, palpitations, irregular heart rate, lightheadedness , peripheral edema RESPIRATORY: Absent: cough, shortness of breath, dyspnea with exertion, orthopnea, wheezing, stridor, hemoptysis GASTROINTESTINAL: Absent: abdominal pain, abdominal distension, nausea, vomiting, diarrhea, constipation, melena, hematochezia GENITOURINARY: Absent: dysuria, frequency, urgency, hesitancy, hematuria, flank pain, genital pain MUSCULOSKELETAL: Absent: myalgia, arthralgia, joint swelling, back pain, neck pain SKIN: Absent: rash, itching, pallor HEMATOLOGIC/IMMUNOLOGIC: Absent: easy bleeding, easy bruising, lymphadenopathy, frequent infections ENDOCRINE: Absent: unexplained weight gain, unexplained weight loss, heat intolerance, cold intolerance PSYCHIATRIC: Absent: anxiety, depression, suicidal or homicidal ideation, hallucinations. PHYSICAL EXAMINATION Vital Signs - 24 hr 01/25/18 01/25/18 01/26/18 17:01 22:40 01:49 Temperature 97.4 F L 98.3 F Pulse Rate 68 Pulse Rate [ 99 H Radial] Respiratory 16 18 14 Rate Blood Pressure 130/61 Blood Pressure 137/76 [Left Arm] O2 Sat by Pulse 96 Oximetry (%) GENERAL: Awake, alert, nontoxic appearing HEAD: Normal with no signs of trauma. EYES: Pupils equal, round and reactive to light, extraocular movements intact, sclera anicteric, conjunctiva clear. No lid lag. EARS, NOSE, THROAT: Ears normal, nares patent, oropharynx clear without exudates. Moist mucous membranes. NECK: Trach+ LUNGS: Mechanical breath sounds equal, clear to auscultation bilaterally. No wheezes, and no crackles HEART: Regular rate and rhythm, normal S1 and S2 without murmur, rub or gallop. ABDOMEN: Soft, nontender, not distended, normoactive bowel sounds, no guarding, no rebound, no masses. MUSCULOSKELETAL: Normal range of motion at all joints. No bony deformities or tenderness. No CVA tenderness. UPPER EXTREMITIES: 2+ pulses, warm, well-perfused. No cyanosis. No clubbing. No peripheral edema. LOWER EXTREMITIES: 2+ pulses, warm, well-perfused. No calf tenderness. No peripheral edema. NEUROLOGICAL: quadraplegia SKIN: no rashes noted WOUND- large right sided sacral ulcer with 9cm x 4 cm with visible bone, not foul smelling and no visible discharge, left sided smaller smaller decubitus sacral ulcer, appears to be stage 4 Raza catheter+ Laboratory Results - last 24 hr 01/25/18 01/25/18 01/25/18 17:41 17:43 17:43 WBC 6.3 RBC 2.89 L Hgb 9.4 L Hct 27.7 L MCV 95.9 MCH 32.7 MCHC 34.1 RDW 14.7 Plt Count 477 H D MPV 8.0 Absolute Neuts (auto) 4.3 Neutrophils % 67.2 D Lymphocytes % 21.7 D Monocytes % 9.3 D Eosinophils % 1.0 Basophils % 0.8 D Nucleated RBC % 0 PT with INR 12.20 INR 1.03 PTT (Actin FS) 38.7 H Sodium Potassium Chloride Carbon Dioxide Anion Gap BUN Creatinine Creat Clearance w eGFR Random Glucose Lactic Acid 0.8 Calcium Total Bilirubin AST ALT Alkaline Phosphatase Troponin I Total Protein Albumin Urine Color Urine Appearance Urine pH Ur Specific [place] Urine Protein Urine Glucose (UA) Urine Ketones Urine Blood Urine Nitrite Urine Bilirubin Urine Urobilinogen Ur Leukocyte Esterase Urine WBC (Auto) Urine RBC (Auto) Urine Bacteria Urine Mucus 01/25/18 01/25/18 01/25/18 17:43 17:43 17:49 WBC RBC Hgb Hct MCV MCH MCHC RDW Plt Count MPV Absolute Neuts (auto) Neutrophils % Lymphocytes % Monocytes % Eosinophils % Basophils % Nucleated RBC % PT with INR INR PTT (Actin FS) Sodium 136 Potassium 5.2 H Chloride 100 Carbon Dioxide 31 Anion Gap 5 L BUN 16 Creatinine 0.5 L Creat Clearance w eGFR > 60 Random Glucose 87 Lactic Acid Calcium 9.1 Total Bilirubin 0.1 L AST 32 ALT 24 Alkaline Phosphatase 188 H Troponin I < 0.02 Total Protein 7.6 Albumin 2.6 L Urine Color Straw Urine Appearance Clear Urine pH 7.0 D Ur Specific [place] 1.009 L Urine Protein Negative Urine Glucose (UA) 3+ H Urine Ketones Negative Urine Blood Negative Urine Nitrite Positive Urine Bilirubin Negative Urine Urobilinogen Negative Ur Leukocyte Esterase 3+ H Urine WBC (Auto) 30 Urine RBC (Auto) 1 Urine Bacteria Moderate Urine Mucus Rare ASSESSMENT/PLAN: #Sacral decubitus ulcer x2, stage 4- likely osteomyelitis as sacral bone is visible on right side. Infection is likely localized to sacrum, patient does not appear to be septic. She received zosyn and vancomycin in ER. -Wound care consult -ID consult for IV antibiotics -blood cultures sent -send lactate -will likely need bone and deep wound biopsy for culture #Chronic respiratory failure -c/w mechanical ventilation #HTN -metoprolol and hydralazine home doses #Seizures -carbamazapine #MS -baclofen pump #HYpothyroidism -c/w home dose levothyroxine #dvt ppx -heparin sc Visit type - Emergency Visit Emergency Visit: Yes ED Registration Date: 01/25/18 Care time: The patient presented to the Emergency Department on the above date and was hospitalized for further evaluation of their emergent condition. - New Patient This patient is new to me today: Yes Date on this admission: 01/26/18 - Critical Care Critical Care patient: No
[2018-01-26 07:28] LABS: HEMATOCRIT 26.1 % (32.4-45.2); HEMOGLOBIN 9.1 GM/dL (10.7-15.3); MCH 33.3 pg (25.7-33.7); MCHC 34.9 g/dl (32.0-36.0); MEAN CELL VOLUME 95.6 fl (80-96); MEAN PLT VOLUME 8.3 fl (7.5-11.1); PLATELET COUNT 387 K/MM3 (134-434); RBC 2.73 M/mm3 (3.60-5.2); RDW 14.8 % (11.6-15.6); WHITE BLOOD COUNT 5.5 K/mm3 (4.0-10.0)
[2018-01-26 08:23] LABS: ANION GAP 8 MMOL/L (8-16); BLOOD UREA NITROGEN 11 mg/dL (7-18); CALCIUM 8.8 mg/dL (8.5-10.1); CHLORIDE 104 mmol/L (98-107); CO2 28 mmol/L (21-32); CREATININE 0.5 mg/dL (0.55-1.3); GLUCOSE,RANDOM 70 mg/dL (74-106); POTASSIUM 4.7 mmol/L (3.5-5.1); SODIUM 139 mmol/L (136-145)
[2018-01-26 08:32] VITALS: BMI 19.7
[2018-01-26] MEDS: hydrALAZINE HCL 50 MG TABLET (FP) PO SCH ×2 (08:55→14:40)
[2018-01-26] MEDS: carBAMazepine 100 MG TAB.CHEW PO SCH ×2 (08:55→14:40)
[2018-01-26] MEDS: HEPARIN NA (PORCINE) 5,000 UNITS/ML 1ML VIAL SQ SCH ×2 (08:55→14:40)
[2018-01-26] MEDS: LEVOTHYROXINE NA 100 MCG TABLET (FP) PO SCH ×2 (08:55→09:59)
--- NOTE | 2018-01-26 09:11 | PN ---
Progress Note, Physician - Current Medication List Current Medications: Active Medications Carbamazepine (Tegretol -) 100 mg PO TID [facility] Last Admin: 01/26/18 08:55 Dose: Not Given Heparin Sodium (Porcine) (Heparin -) 5,000 unit SQ TID [facility] Last Admin: 01/26/18 08:55 Dose: Not Given Hydralazine HCl (Apresoline -) 50 mg PO TID [facility] Last Admin: 01/26/18 08:55 Dose: Not Given Levothyroxine Sodium (Synthroid -) 100 mcg PO DAILY@0700 [facility] Last Admin: 01/26/18 08:55 Dose: Not Given Lidocaine HCl (Xylocaine 2% Viscous Oral -) 20 ml MM BID [facility] Loratadine (Claritin -) 10 mg PO DAILY [facility] Metoprolol Succinate (Toprol Xl -) 50 mg PO BID [facility] Potassium Chloride (K-Dur -) 20 meq PO DAILY [facility] Sertraline HCl (Zoloft -) 50 mg PO DAILY [facility] Sodium Chloride (Sodium Chloride Tablet -) 1 gm PO DAILY [facility] - Objective Vital Signs: Vital Signs Temperature 98.3 F 01/26/18 05:00 Pulse Rate 97 H 01/26/18 05:00 Respiratory Rate 18 01/26/18 05:25 Blood Pressure 121/55 L 01/26/18 05:00 O2 Sat by Pulse Oximetry (%) 98 01/26/18 05:00 Cardiovascular: Yes: S1, S2 Respiratory: Yes: Other (trach collar) Labs: CBC, BMP 01/26/18 06:30 01/26/18 06:30 INR, PTT INR 1.03 (0.83-1.09) 01/25/18 17:43 Problem List - Problems (1) Decubital ulcer Assessment/Plan: -Sacral decubitus ulcer x2, stage 4- likely osteomyelitis as sacral bone is visible on right side. - She received zosyn and vancomycin in ER. -Wound care consult -ID consult for IV antibiotics -blood cultures sent -send lactate -will likely need bone and deep wound biopsy for culture Code(s): L89.90 - PRESSURE ULCER OF UNSPECIFIED SITE, UNSPECIFIED STAGE Qualifiers: Pressure injury location: unspecified location Pressure injury stage: unspecified pressure injury stage Qualified Code(s): L89.90 - Pressure ulcer of unspecified site, unspecified stage (2) Anemia Code(s): D64.9 - ANEMIA, UNSPECIFIED Qualifiers: Other causes of anemia: other cause, not classified (3) Chronic respiratory failure Assessment/Plan: -c/w mechanical ventilation at night Code(s): J96.10 - CHRONIC RESPIRATORY FAILURE, UNSP W HYPOXIA OR HYPERCAPNIA (4) Functional quadriplegia Code(s): R53.2 - FUNCTIONAL QUADRIPLEGIA (5) Hx of multiple sclerosis Assessment/Plan: -baclofen pump Code(s): Z86.69 - PERSONAL HISTORY OF DIS OF THE NERVOUS SYS AND SENSE ORGANS
[2018-01-26] MEDS ORDERED: PT OWN MED DRAWER 7, Y5N ONE ×2 (09:57→14:38)
[2018-01-26] MEDS ORDERED: SODIUM CHLORIDE 1 GM TABLET PO SCH (10:00)
[2018-01-26] MEDS ORDERED: SERTRALINE HCL 50 MG TABLET (FP) PO SCH (10:00)
[2018-01-26] MEDS ORDERED: POTASSIUM CHLORIDE TABS 20 MEQ TABLET.ER (FP) PO SCH (10:00)
[2018-01-26] MEDS ORDERED: LIDOCAINE VISCOUS 2% ORAL/TOP 20 ML UNIT-DOSE CUP MM SCH (10:00)
[2018-01-26] MEDS ORDERED: LORATADINE 10 MG TABLET PO SCH (10:00)
--- NOTE | 2018-01-26 11:43 | CON.ID ---
Consult Consult Specialty:: infectious disease Referred by:: dr gray Reason for Consultation:: wound infection - History of Present Illness Chief Complaint: none History of Present Illness: 52 yo female with MS- chronic respiratory failure, total care- livess at home with mother and attendents has known sacral ulcers. 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 chronic decubitus followed by wound care. neurogenic bladder, chronic perera catheter - Past Surgical History Additional Surgical History: tracheostomy. baclofen pump - Alcohol/Substance Use Hx Alcohol Use: No History of Substance Use: reports: None - Smoking History Smoking history: Never smoked Have you smoked in the past 12 months: No Aproximately how many cigarettes per day: 0 - Social History Usual Living Arrangement: With Parent ADL: Support Services Place of : [facility] History of Recent Travel: No Home Medications - Allergies Allergies/Adverse Reactions: Allergies Allergy/AdvReac Type Severity Reaction Status Date / Time chloral hydrate Allergy Intermediate Rash Verified 01/03/18 16:02 [Chloral Hydrate] azathioprine [From Imuran] Allergy Rash Verified 01/03/18 16:02 azathioprine sodium Allergy Rash Verified 01/03/18 16:02 [From Imuran] adhesive tape AdvReac Severe sensitivity Verified 01/03/18 16:02 to glue adhesive AdvReac Unknown Verified 01/03/18 16:02 - Home Medications Home Medications: Ambulatory Orders Levothyroxine [Synthroid -] 100 mcg PO DAILY@0700 #30 tablet 06/24/16 Sodium Chloride Tablet - 1 gm PO DAILY #30 tablet 06/24/16 hydrALAZINE HCL [Apresoline -] 50 mg PO TID 02/11/17 Carbamazepine 100 mg PO TID 01/03/18 Loratadine 10 mg PO DAILY 01/03/18 Metoprolol Succinate 50 mg PO BID 01/03/18 Potassium Chloride [K-Dur -] 20 meq PO DAILY 01/03/18 Sertraline HCl 50 mg PO DAILY 01/03/18 Cefuroxime Axetil [Ceftin -] 500 mg PO Q12H #14 tablet 01/07/18 Gentamicin Sulfate 30 gm TP DAILY 7 Days #1 cream..g. 01/12/18 Lidocaine 4% Topical [Xylocaine 4% Topical -] 1 applic MM BID #1 btl 01/12/18 Family Disease History - Family Disease History Family Disease History: Diabetes: Sister, Other: Mother Review of Systems - Review of Systems Constitutional: reports: No Symptoms Eyes: reports: No Symptoms HENT: reports: No Symptoms Neck: reports: No Symptoms Cardiovascular: reports: No Symptoms Respiratory: reports: No Symptoms Gastrointestinal: reports: No Symptoms Genitourinary: reports: No Symptoms Physical Exam Vital Signs: Vital Signs Temperature 98.3 F 01/26/18 05:00 Pulse Rate 97 H 01/26/18 05:00 Respiratory Rate 18 01/26/18 05:25 Blood Pressure 121/55 L 01/26/18 05:00 O2 Sat by Pulse Oximetry (%) 98 01/26/18 05:00 Constitutional: Yes: No Distress, Calm Eyes: Yes: WNL HENT: Yes: Atraumatic, Normocephalic Neck: Yes: Other (tracheostomy) Cardiovascular: Yes: Regular Rate and Rhythm Respiratory: Yes: CTA Bilaterally Gastrointestinal: Yes: Normal Bowel Sounds, Soft, Other (+pump) ...Rectal Exam: Yes: Deferred Edema: Yes Edema: LLE: Trace, RLE: Trace Wound/Incision: Yes: Other (sacral ulcer - no erythema, no drainage, no odor, no purulence extends to bone- appears to have intact periosteum second ulcer without drainage, chronic) Neurological: Yes: Alert Psychiatric: Yes: Alert, Oriented Labs: CBC, BMP 01/26/18 06:30 01/26/18 06:30 cultures pending Imaging - Results Chest X-ray: Report Reviewed, Image Reviewed Problem List - Problems (1) Decubital ulcer Code(s): L89.90 - PRESSURE ULCER OF UNSPECIFIED SITE, UNSPECIFIED STAGE Qualifiers: Pressure injury location: unspecified location Pressure injury stage: unspecified pressure injury stage Qualified Code(s): L89.90 - Pressure ulcer of unspecified site, unspecified stage (2) Multiple sclerosis Code(s): G35 - MULTIPLE SCLEROSIS Assessment/Plan discussed with patient and sister and Dr iMranda wounds are unchanged from 3 weeks ago no signs of infection no need to treat for wound infection Dr Miranda is discussing wound care f/u with the family
--- NOTE | 2018-01-26 11:59 | CONSULT ---
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 chronic decubitus followed by wound care. neurogenic bladder, chronic perera catheter - Alcohol/Substance Use Hx Alcohol Use: No History of Substance Use: reports: None - Smoking History Smoking history: Never smoked Have you smoked in the past 12 months: No Aproximately how many cigarettes per day: 0 - Social History Usual Living Arrangement: With Parent ADL: Support Services History of Recent Travel: No Home Medications - Allergies Allergies/Adverse Reactions: Allergies Allergy/AdvReac Type Severity Reaction Status Date / Time chloral hydrate Allergy Intermediate Rash Verified 01/03/18 16:02 [Chloral Hydrate] azathioprine [From Imuran] Allergy Rash Verified 01/03/18 16:02 azathioprine sodium Allergy Rash Verified 01/03/18 16:02 [From Imuran] adhesive tape AdvReac Severe sensitivity Verified 01/03/18 16:02 to glue adhesive AdvReac Unknown Verified 01/03/18 16:02 - Home Medications Home Medications: Ambulatory Orders Levothyroxine [Synthroid -] 100 mcg PO DAILY@0700 #30 tablet 06/24/16 Sodium Chloride Tablet - 1 gm PO DAILY #30 tablet 06/24/16 hydrALAZINE HCL [Apresoline -] 50 mg PO TID 02/11/17 Carbamazepine 100 mg PO TID 01/03/18 Loratadine 10 mg PO DAILY 01/03/18 Metoprolol Succinate 50 mg PO BID 01/03/18 Potassium Chloride [K-Dur -] 20 meq PO DAILY 01/03/18 Sertraline HCl 50 mg PO DAILY 01/03/18 Cefuroxime Axetil [Ceftin -] 500 mg PO Q12H #14 tablet 01/07/18 Gentamicin Sulfate 30 gm TP DAILY 7 Days #1 cream..g. 01/12/18 Lidocaine 4% Topical [Xylocaine 4% Topical -] 1 applic MM BID #1 btl 01/12/18 Family Disease History - Family Disease History Family Disease History: Diabetes: Sister, Other: Mother Physical Exam Vital Signs: Vital Signs Temperature 98.3 F 01/26/18 05:00 Pulse Rate 97 H 01/26/18 05:00 Respiratory Rate 18 01/26/18 05:25 Blood Pressure 121/55 L 01/26/18 05:00 O2 Sat by Pulse Oximetry (%) 98 01/26/18 05:00 Labs: CBC, BMP 01/26/18 06:30 01/26/18 06:30 Assessment/Plan Assessment : patient seen with Dr Carl and sister Erinn Patient was seen by rn document improvement specialist Dr Arreola. Wound cultures were done, were positive and his recommendation patient was admitted for Possible osteomylitis and treatment IV antibiotics All wounds evaluated including Right ischial GradeIV decubitus. All decubitii are Status Quo. no odor, drainage :No change, no induration, Microbiology 12/04/15 22:20 Urine - Urine - Catheterized Urine Culture - Final Proteus Vulgaris Klebsiella Oxytoca Escherichia Coli Enterococcus Faecalis 01/03/18 18:05 Urine - Urine Perera Urine Culture - Preliminary Gram Negative Adam Selected Entries 12/08/15 12/08/15 12/08/15 06:00 09:00 10:00 Temperature 98.1 F 97.7 F Pulse Rate 69 Respiratory Rate Blood Pressure 109/58 106/83 Blood Pressure Position O2 Sat by Pulse 95 Oximetry (%) Oxygen Delivery Method Fraction of Inspired Oxygen (FIO2) Bowel Movement No No Weight 12/08/15 01/26/18 11:42 05:00 Temperature 98.3 F Pulse Rate 78 97 H Respiratory 20 Rate Blood Pressure 121/55 L Blood Pressure Supine Position O2 Sat by Pulse 98 Oximetry (%) Oxygen Delivery Mechanical Method Ventilator Fraction of 50 Inspired Oxygen (FIO2) Bowel Movement Weight 141 lb 8 oz Laboratory Tests 12/08/15 01/03/18 01/04/18 07:20 21:50 00:38 WBC RBC Hgb Hct MCV Plt Count MPV Absolute Neuts (auto) Neutrophils % Neutrophils % (Manual) Lymphocytes % Monocytes % Eosinophils % Basophils % Platelet Estimate Haptoglobin 291 H Sodium 127 L Potassium 3.0 L Chloride 88 L Carbon Dioxide Anion Gap BUN 12 Creatinine 0.4 L Creat Clearance w eGFR Glucose 99 Random Glucose 108 H Calcium 8.0 L Magnesium GGT 61 H Total Bilirubin AST ALT Alkaline Phosphatase [id number]-[id number] 146 Troponin I < 0.02 Total Protein Albumin Triglycerides 82 Cholesterol 191 Apolipoprotein A-1 143 TSH Free T4 Patient Height (cm) 69 Patient Weight (kg) 163 01/04/18 01/04/18 01/04/18 05:18 05:18 05:18 WBC 11.8 H RBC Hgb 11.0 Hct MCV Plt Count MPV Absolute Neuts (auto) 11.2 H Neutrophils % 94.7 H Neutrophils % (Manual) 90.8 H Lymphocytes % 2.9 L D Monocytes % Eosinophils % Basophils % Platelet Estimate Adequate Haptoglobin Sodium Potassium Chloride Carbon Dioxide Anion Gap BUN Creatinine Creat Clearance w eGFR Glucose Random Glucose Calcium Magnesium 1.7 L GGT Total Bilirubin AST ALT Alkaline Phosphatase 226 H [id number]-8-[id number] Troponin I < 0.02 Total Protein 7.4 Albumin 3.0 L Triglycerides Cholesterol Apolipoprotein A-1 TSH Free T4 Patient Height (cm) Patient Weight (kg) 01/05/18 01/05/18 01/05/18 06:00 06:00 06:00 WBC 10.7 H RBC Hgb 9.0 L Hct MCV 96.3 H Plt Count 114 L D MPV Absolute Neuts (auto) 10.1 H Neutrophils % 93.9 H Neutrophils % (Manual) 83.0 H Lymphocytes % 3.5 L D Monocytes % Eosinophils % Basophils % Platelet Estimate Decreased Haptoglobin Sodium 129 L Potassium 3.8 Chloride 95 L Carbon Dioxide Anion Gap BUN 10 Creatinine 0.5 L Creat Clearance w eGFR Glucose Random Glucose 65 L Calcium 8.5 Magnesium GGT Total Bilirubin AST ALT Alkaline Phosphatase 189 H Pvegz-4-Xpefsaoamnkfn Troponin I Total Protein 6.3 L Albumin 2.3 L Triglycerides Cholesterol Apolipoprotein A-1 TSH 1.82 Free T4 1.17 Patient Height (cm) Patient Weight (kg) 01/25/18 01/25/18 01/26/18 17:43 17:43 06:30 WBC 5.5 RBC 2.73 L Hgb 9.1 L Hct 26.1 L MCV Plt Count 477 H D MPV 8.0 Absolute Neuts (auto) 4.3 Neutrophils % 67.2 D Neutrophils % (Manual) Lymphocytes % 21.7 D Monocytes % 9.3 D Eosinophils % 1.0 Basophils % 0.8 D Platelet Estimate Haptoglobin Sodium Potassium Chloride Carbon Dioxide Anion Gap BUN Creatinine Creat Clearance w eGFR Glucose Random Glucose Calcium 9.1 Magnesium GGT Total Bilirubin 0.1 L AST 32 ALT 24 Alkaline Phosphatase 188 H Wpnpt-1-Xzhbwznqilkdu Troponin I Total Protein 7.6 Albumin 2.6 L Triglycerides Cholesterol Apolipoprotein A-1 TSH Free T4 Patient Height (cm) Patient Weight (kg) 01/26/18 06:30 WBC RBC Hgb Hct MCV Plt Count MPV Absolute Neuts (auto) Neutrophils % Neutrophils % (Manual) Lymphocytes % Monocytes % Eosinophils % Basophils % Platelet Estimate Haptoglobin Sodium 139 Potassium 4.7 Chloride 104 Carbon Dioxide 28 Anion Gap 8 BUN 11 Creatinine 0.5 L Creat Clearance w eGFR > 60 Glucose Random Glucose 70 L Calcium 8.8 Magnesium GGT Total Bilirubin AST ALT Alkaline Phosphatase Nnqnm-7-Rosrzzykvofvk Troponin I Total Protein Albumin Triglycerides Cholesterol Apolipoprotein A-1 TSH Free T4 Patient Height (cm) Patient Weight (kg) Plan : Right Ischial wound debrided using #15 blade Culture taken Wounds irrigated with NSS and Silver alginate dressings done for all wounds Patient can be discharged to home . Discussed with Infectious disease Dr Rubin Caputo , we both agree Labs are stable , white count WNL No odor in wounds , no active infection Patient is on Maintance wound care/Functional paraplegic , needs total care being provided by family and Aide Plan to do home visits for this patient twice a month
--- NOTE | 2018-01-26 13:34 | DS ---
Physical Examination Vital Signs: Vital Signs Temperature 98.3 F 01/26/18 09:39 Pulse Rate 95 H 01/26/18 09:39 Respiratory Rate 20 01/26/18 10:12 Blood Pressure 143/81 01/26/18 09:39 O2 Sat by Pulse Oximetry (%) 95 01/26/18 10:12 Labs: CBC, BMP 01/26/18 06:30 01/26/18 06:30 Discharge Summary Reason For Visit: DECUBITIS ULCER/LOCAL INFECTION OF WOUND Current Active Problems Decubital ulcer (Acute) Wound infection (Acute) Condition: Stable - Instructions Diet, Activity, Other Instructions: *DR. BAR WILL F/U TO HOME TWICE A MONTH. *DRESSING: SILVER ALGINATE PACKING. Referrals: Anne Lopez MD [Primary Care Provider] - Disposition: [facility]/HOME HEALTH CARE - Home Medications Comprehensive Discharge Medication List: Ambulatory Orders Levothyroxine [Synthroid -] 100 mcg PO DAILY@0700 #30 tablet 06/24/16 Sodium Chloride Tablet - 1 gm PO DAILY #30 tablet 06/24/16 hydrALAZINE HCL [Apresoline -] 50 mg PO TID 02/11/17 Carbamazepine 100 mg PO TID 01/03/18 Loratadine 10 mg PO DAILY 01/03/18 Metoprolol Succinate 50 mg PO BID 01/03/18 Potassium Chloride [K-Dur -] 20 meq PO DAILY 01/03/18 Sertraline HCl 50 mg PO DAILY 01/03/18 Cefuroxime Axetil [Ceftin -] 500 mg PO Q12H #14 tablet 01/07/18 Gentamicin Sulfate 30 gm TP DAILY 7 Days #1 cream..g. 01/12/18 Lidocaine 4% Topical [Xylocaine 4% Topical -] 1 applic MM BID #1 btl 01/12/18
[2018-01-26 14:18] VITALS: BP 158/80; PULSE 88; TEMP 98.1
--- NOTE | 2018-01-26 15:40 | EKG ---
Test Reason : Blood Pressure : / mmHG Vent. Rate : 073 BPM Atrial Rate : 073 BPM P-R Int : 136 ms QRS Dur : 094 ms QT Int : 362 ms P-R-T Axes : 058 022 056 degrees QTc Int : 398 ms NORMAL SINUS RHYTHM NORMAL ECG WHEN COMPARED WITH ECG OF 03-JAN-2018 18:05, VENT. RATE HAS INCREASED BY 28 BPM QRS DURATION HAS DECREASED QT HAS SHORTENED Confirmed by TOMAS PATIÑO, BRANDY ([id number]) on 01/26/2018 3:40:20 PM Referred By: Confirmed By:BRANDY MARIN MD
== END 2018-01-26 17:03 | disposition home health service (06) | DRG 579 ==
LOC: JER 16:14 → JERBED 19:58 → J8W 01-26 00:05 → J5S 01-26 04:37
PROVIDERS: ADMIT Family Medicine; ATTEND Family Medicine
PROC: 0JDL0ZZ Extraction of Right Upper Leg Subcutaneous Tissue and Fascia, Open Approach (ICD-10-PCS; principal; 2018-01-26)
DX: L89.154 Pressure ulcer of sacral region, stage 4 (principal); R53.2 Functional quadriplegia; J96.10 Chronic respiratory failure, unspecified whether with hypoxia or hypercapnia; M86.9 Osteomyelitis, unspecified; N39.0 Urinary tract infection, site not specified; G35 Multiple sclerosis; Z93.0 Tracheostomy status; R56.9 Unspecified convulsions; Z93.1 Gastrostomy status; E03.9 Hypothyroidism, unspecified; D64.9 Anemia, unspecified; N31.8 Other neuromuscular dysfunction of bladder; B96.1 Klebsiella pneumoniae [K. pneumoniae] as the cause of diseases classified elsewhere; B96.4 Proteus (mirabilis) (morganii) as the cause of diseases classified elsewhere; B96.29 Other Escherichia coli [E. coli] as the cause of diseases classified elsewhere; B95.2 Enterococcus as the cause of diseases classified elsewhere
CPT/HCPCS: 36415; 71045-TC-FY; 80048; 80053; 81003; 81015; 83605; 84484; 85025; 85027; 85610; 85730; 87040; 87070; 87075; 87086; 87186; 87205; 93005; 93010; 94002; 99285-25; J1644

== ENCOUNTER 2018-02-25 18:45 | Inpatient (IN) | payer OTHER ==
--- NOTE | 2018-02-25 18:50 | PDOC ---
History of Present Illness - General Chief Complaint: Altered Mental Status Stated Complaint: SICK Time Seen by Provider: 02/25/18 18:49 History Source: Patient, Parent(s) (Mother) Exam Limitations: Clinical Condition, Physical Impairment (quadraplegic, pt has vocal cover for trach tube, and can answer questions appropriately.) - History of Present Illness Initial Comments: Pt is a 53 yo F, with PMH of MS, quadraplegia (trach/peg with baclofen pump), HTN, and sz, who is presenting with her mother via EMS for complaints of AMS and SOB. Pt had her trach replaced yesterday in office with Dr. Tompkins. However, starting Wednesday night, the pt had multiple awakenings with repetitive speech , which is unusual for her. Pt was seen by wound care for b/l hip & sacral ulcers on Wednesday (normal exam and wound change), and had her trach tube replaced in Dr. Tompkins's office yesterday, with no recent redness or erythema. Pt has a perera catheter in place that has been draining dark yellow urine. Pt and mother deny any fevers/chills, headache, vision changes, chest pain, palpitations, nausea/vomiting, abdominal pain, diarrhea/constipation, or leg swelling. Social: Pt denies any cigarette, alcohol, or drug use. Pt denies any recent travel or sick contacts. Surgical: trac/peg with baclofen pump Family: no relevant history 02/25/18 23:51 Past History - Travel Traveled outside of the country in the last 30 days: No Close contact w/someone who was outside of country & ill: No - Past Medical History Allergies/Adverse Reactions: Allergies Allergy/AdvReac Type Severity Reaction Status Date / Time chloral hydrate Allergy Intermediate Rash Verified 02/25/18 18:47 [Chloral Hydrate] azathioprine [From Imuran] Allergy Rash Verified 02/25/18 18:47 azathioprine sodium Allergy Rash Verified 02/25/18 18:47 [From Imuran] adhesive tape AdvReac Severe sensitivity Verified 02/25/18 18:47 to glue adhesive AdvReac Unknown Verified 02/25/18 18:47 Home Medications: Ambulatory Orders Levothyroxine [Synthroid -] 100 mcg PO DAILY@0700 #30 tablet 06/24/16 hydrALAZINE HCL [Apresoline -] 50 mg PO TID 02/11/17 Carbamazepine 100 mg PO TID 01/03/18 Loratadine 10 mg PO DAILY 01/03/18 Metoprolol Succinate 50 mg PO BID 01/03/18 Potassium Chloride [K-Dur -] 20 meq PO DAILY 01/03/18 Sertraline HCl 50 mg PO DAILY 01/03/18 Furosemide 20 mg PO DAILY 02/25/18 Anemia: Yes Asthma: No Cancer: No Cardiac Disorders: No Hx Myocardial Infarction: No CVA: No COPD: No CHF: No DVT: No Dementia: (M.S,TRIG.NEUROLAGIA) Diabetes: No GI Disorders: Yes Disorders: Yes (baclofen implant) HTN: Yes Hypercholesterolemia: No Liver Disease: No Seizures: Yes Thyroid Disease: No - Surgical History Abdominal Surgery: No Appendectomy: No Cardiac Surgery: No Cholecystectomy: No GI Surgery: (BACLOFEN IMPLANT) Lung Surgery: Yes (TRACH) Neurologic Surgery: No Orthopedic Surgery: No - Immunization History Immunization Up to Date: Yes - Suicide/Smoking/Psychosocial Hx Smoking Status: No Smoking History: Never smoked Have you smoked in the past 12 months: No Number of Cigarettes Smoked Daily: 0 Cigars Per Day: 0 Hx Alcohol Use: No Drug/Substance Use Hx: No Substance Use Type: None Hx Substance Use Treatment: No Review of Systems - Review of Systems Able to Perform ROS?: Yes Is the patient limited Sudanese proficient: No Constitutional: Yes: Weakness (baseline (quadraplegia)), Weight Stable. No: Chills, Diaphoresis, Fever HEENTM: No: Recent change in vision, Nose Congestion, Hearing Loss, Throat Pain Respiratory: Yes: Shortness of Breath, SOB at Rest. No: Cough, Orthopnea, Wheezing, Productive cough, Hemoptysis Cardiac (ROS): No: Chest Pain, Edema, Lightheadedness, Syncope, Chest Tightness ABD/GI: No: Abdominal Distended, Blood Streaked Bowels, Diarrhea, Nausea, Rectal Bleeding, Vomiting : Yes: Other (catheter draining dark urine) Musculoskeletal: Yes: Muscle Weakness (quadraplegic) Integumentary: Yes: Other (b/l decubitus ulcers and sacral ulcer, seen by wound care). No: Rash Neurological: Yes: Seizure (history, none recent), Other (MS, quadraplegic) Psychiatric: No: Sleep Pattern Change, Change in Appetite Endocrine: No: Increased Urine, Change in Weight *Physical Exam - Physical Exam General Appearance: Yes: Nourished, Appropriately Dressed, Mild Distress, Thin HEENT: positive: EOMI, ANDRIY, Normal ENT Inspection, TMs Normal, Pharynx Normal, Hearing Grossly Normal. negative: Scleral Icterus (R), Scleral Icterus (L), Pharyngeal Erythema, Tonsillar Exudate, Tonsillar Erythema, Rhinorrhea, Thrush Neck: positive: Trachea midline, Normal Thyroid, Supple. negative: Tender, Rigid, Lymphadenopathy (R), Lymphadenopathy (L) Respiratory/Chest: positive: Lungs Clear, Respiratory Distress, Decreased Breath Sounds (diminished breath sounds anterior & posterior b/l, no crackles no wheezing). negative: Chest Tender, Normal Breath Sounds, Accessory Muscle Use, Crackles, Wheezing Cardiovascular: positive: Regular Rhythm, Regular Rate, S1, S2. negative: Edema , JVD, Murmur Vascular Pulses: Carotid (R): 4+, Carotid (L): 4+ Gastrointestinal/Abdominal: positive: Normal Bowel Sounds, Tender (mild diffuse tenderness/grimace on exam, no rebound no guarding), Flat, Soft. negative: Organomegaly, Pulsatile Mass, Distended, Guarding, Rebound Rectal Exam: negative: hemorrhoids Lymphatic: negative: Adenopathy, Tenderness Musculoskeletal: positive: Decreased Range of Motion. negative: Normal Inspection Extremity: positive: Normal Capillary Refill, Normal Inspection, Pelvis Stable. negative: Normal Range of Motion, Tender, Cyanosis, Pedal Edema Integumentary: positive: Normal Color, Dry, Warm, Other (b/l decubitus ulcers ( stage 4), sacral ulcer, no obvious drainage or erythema, clean bandages with cream had been applied). negative: Jaundice, Clammy, Diaphoresis, Rash Neurologic: positive: Fully Oriented, Alert, Normal Mood/Affect, Normal Response. negative: train engineer II-XII NML intact (unable to test due to condition), Motor Strength 5/5, EOM Palsy, Facial Droop, Disoriented ED Treatment Course - LABORATORY CBC & Chemistry Diagram: 02/25/18 20:31 02/25/18 20:31 Medical Decision Making - Medical Decision Making Pt was seen at bedside, also will be seen by attending Dr. Coffman. Pt presenting with her mother via EMS for complaints of AMS and SOB. Pt had her trach replaced yesterday in office with Dr. Tompkins. However, starting Wednesday night, the pt had multiple awakenings with repetitive speech, which is unusual for her. Pt was seen by wound care for b/l hip & sacral ulcers on Wednesday (normal exam and wound change), and had her trach tube replaced in Dr. Tompkins's office yesterday, with no recent redness or erythema. Pt has a perera catheter in place that has been draining dark yellow urine. Pt and mother deny any fevers/chills, headache, vision changes, chest pain, palpitations, nausea/vomiting, abdominal pain, diarrhea/constipation, or leg swelling. PE showed diminished lung sounds anterior and posterior, pt has poor respiratory effort. No crackles or wheezing, clear heart sounds, no murmur. Mild grimace with abdominal palpation diffusely, no rebound, no guarding. Urine from perera catheter appears dark and cloudy. Pt has baclofen pump in RLQ. B/l hip ulcers and sacral ulcer (all stage 4), with no obvious erythema or drainage. Bandages appear clean with cream applied to ulcers. Considering infection (UTI vs pneumonia/aspiration vs sacral ulcer infection) vs atelectasis/acute respiratory failure 2/2 MS vs electrolyte imbalance vs ACS. Minimal concern for stroke as no facial droop, pt able to answer questions appropriately. Ordered work-up including sepsis work-up, VBC, ECG, and chest x-ray. Provided 1 L IV NS, 1 g vanc, 3.375 g zosyn for antibiotic coverage and rehydration. Will continue to reassess pt and monitor for symptomatic improvement. 02/25/18 21:13 Chest x-ray shows possible infiltrate over RML (aspiration?) CBC: no >WBC, thrombocytopenia (platelets 90, usually 100s-200s) VBG: pH 7.04, CO2 75.4, O2 143 Respiratory has come to see the pt, pt on venti mask over trach, pt saturating 96-98% on 35%. Respiratory on board for suctioning and reassessment of venti mask. 02/25/18 21:17 CMP generally WNL. ALKphos elevated 400s, trop <.02 02/25/18 21:23 Urine infected, Leuk esterase 3+, WBC+ Pt goes on ventilator at night, started ventilation: 450/14/50% FiO2, PEEP 5 Paged hospitalist team for admission Placed blank admit order per protocol. 02/25/18 21:56 Pt accepted by admitting team. Ordered repeat ABG (drawn by respiratory and sent to lab). Repeat rectal temp: 95.5 Admitting team paged with information for proper placement of pt. 02/25/18 23:14 *DC/Admit/Observation/Transfer Diagnosis at time of Disposition: Sacral decubitus ulcer, stage IV, Acute on chronic respiratory failure with hypoxia and hypercapnia, Presence of intrathecal baclofen pump Decubital ulcer Qualifiers: Pressure injury location: unspecified location Pressure injury stage: unspecified pressure injury stage Qualified Code(s): L89.90 - Pressure ulcer of unspecified site, unspecified stage Urinary tract infection Qualifiers: Urinary tract infection type: site unspecified Hematuria presence: with hematuria Qualified Code(s): N39.0 - Urinary tract infection, site not specified ; R31.9 - Hematuria, unspecified - Discharge Dispostion Condition at time of disposition: Stable Decision to Admit order: Yes - Referrals - Patient Instructions - Post Discharge Activity
[2018-02-25] MEDS ORDERED: SODIUM CHLORIDE 1,000 ML IV STA (20:20)
--- NOTE | 2018-02-25 20:40 | PDOC ---
Attending Attestation - HPI HPI: 02/25/18 21:05 The patient is a 53 year old female, with a significant PMH of MS, neuralgia, HTN and seizures , who presents to the emergency department with hypoxemia and difficulty breathing through her tracheostomy tube that began on 02/23/2018. The patients family notes altered mental status and impediment speech. The family states patient trach was changed yesterday and also mentions patient has a sacral ulcer. The patient denies chest pain, shortness of breath, headache and dizziness. Denies fever, chills, nausea, vomit, diarrhea and constipation. Denies dysuria, frequency, urgency and hematuria. Allergies: NKDA Past surgical history: Baclofen implant, trach Social history: None reported PCP: None reported Documentation prepared by Ishaan Pereyra, acting as medical insurance biller for Jyotsna Coffman MD. - Physicial Exam PE: 02/25/18 21:06 GENERAL: Afebrile. The patient is in no acute distress. HEAD: Normal with no signs of trauma. LUNGS: Breath sounds equal, clear to auscultation bilaterally. No wheezes, and no crackles. HEART:Regular rate and rhythm, normal S1 and S2 without murmur, rub or gallop. ABDOMEN: Soft, nontender, normoactive bowel sounds. No guarding, no rebound. No masses palpable GI: +sacral ulcer and peerra catheter in place with dark cloudy urine EXTREMITIES: No pitting edema Normal range of motion, no edema. No clubbing or cyanosis. No erythema, or tenderness. NEUROLOGICAL: Cranial nerves II through XII grossly intact. Normal speech. No focal neurological deficits. MUSCULOSKELETAL: Back non-tender to palpation, no CVA tenderness SKIN: Warm, Dry, normal turgor, no rashes or lesions noted. Documentation prepared by Ishaan Pereyra, acting as medical insurance biller for Jyotsna Coffman MD. <Ishaan Pereyra - Last Filed: 02/25/18 21:50> - Resident Resident Name: Kizzy Mitchell - ED Attending Attestation I have performed the following: I have examined & evaluated the patient, The case was reviewed & discussed with the resident, I agree w/resident's findings & plan - Medical Decision Making 02/25/18 20:37 Pt comes with hypoxemia and difficulty breathing through her tracheostomy tube. She is afebrile and she doesn't have any obvious coarse breath sounds on exam. She has good air entry bilaterally; with O2 at the trach tube, pt's pulsox rises to 100% 02/25/18 20:46 Pt seems to have right sided infiltrate on portable CXR, which is evident given comparison to CXR from 2 months ago. 02/25/18 20:47 Pt had blood cultures sent; we will treat with abx. 02/25/18 22:08 Pt's lactic acid is normal. Pt will be admitted for IV abx for her UTI/indwelling perera cath. She will also require eval for her hypoxemia. <Jyotsna Coffman - Last Filed: 02/26/18 00:48> Heart Score/ECG Review - ECG Intrepretation Rhythm: Regular Rhythm - [place]: Normal - P and FL Prominent R with upright T in V1 (true posterior [place]): No Delta Wave(s) Present: No WPW: No - QRS Poor R Wave Progression: No Q Wave Present: No - ST and T Early Repolarization: No Non Specific ST-T Wave changes: No Flattened T Waves: No Prolonged Q-T Interval: No - ECG Impressions Normal ECG: Yes Non-specific ST Elevation: No Ischemic Changes: No Torsades gianfranco Pointes: No WPW: No <Jyotsna Coffman - Last Filed: 02/26/18 00:48>
[2018-02-25 20:47] LABS: BASO % 0.2 % (0-2.0); EOS % 0.2 % (0-4.5); HEMOGLOBIN 9.4 GM/dL (10.7-15.3); LYMPH % 4.9 % (8-40); MCH 32.6 pg (25.7-33.7); MCHC 33.7 g/dl (32.0-36.0); MEAN CELL VOLUME 96.9 fl (80-96); MEAN PLT VOLUME 9.5 fl (7.5-11.1); MONO % 3.1 % (3.8-10.2); NEUT % 91.6 % (42.8-82.8); PLATELET COUNT 90 K/MM3 (134-434); RBC 2.89 M/mm3 (3.60-5.2); RDW 15.6 % (11.6-15.6); WHITE BLOOD COUNT 7.5 K/mm3 (4.0-10.0)
[2018-02-25] MEDS ORDERED: CEFTRIAXONE 1 GM in DEXTROSE 5%-WATER - 100 ML IVPB ONE (20:48)
[2018-02-25 20:51] LABS: VENOUS PC02 75.4 mmHg (38-52); VENOUS PH 7.04 (7.32-7.42)
[2018-02-25 20:57] LABS: INR 1.18 (0.83-1.09); PROTHROMBIN TIME (PATIENT) 13.9 SEC (9.7-13.0)
[2018-02-25] MEDS ORDERED: VANCOMYCIN 1 GRAM (PRE-DOCKED) 1,000 MG/250 ML BAG IVPB ONE ×2 (20:59→21:08)
[2018-02-25] MEDS ORDERED: PIPERACILLIN/TAZOB 3.375 GM 3.375 GM in DEXTROSE 5%-WATER - 50 ML IVPB ONE (20:59)
[2018-02-25] MEDS ORDERED: PIPERACILLIN/TAZOB 3.375 GM 3.375 GM/50 ML BAG IVPB ONE (21:08)
[2018-02-25 21:13] LABS: ALBUMIN 2.5 g/dl (3.4-5.0); ALK PHOS 436 U/L (45-117); ANION GAP 5 MMOL/L (8-16); BILIRUBIN,TOTAL 0.2 mg/dL (0.2-1); BLOOD UREA NITROGEN 16 mg/dL (7-18); CALCIUM 8.7 mg/dL (8.5-10.1); CHLORIDE 105 mmol/L (98-107); CO2 27 mmol/L (21-32); CREATININE 0.6 mg/dL (0.55-1.3); GLUCOSE,RANDOM 79 mg/dL (74-106); POTASSIUM 4.6 mmol/L (3.5-5.1); SGOT/AST 49 U/L (15-37); SGPT/ALT 57 U/L (13-61); SODIUM 136 mmol/L (136-145); TOT PROT 7.2 g/dl (6.4-8.2)
[2018-02-25 21:31] LABS: URINE APPEARANCE TURBID; URINE BILIRUBIN NEGATIVE (<2.0 mg/dL); URINE COLOR AMBER; URINE GLUCOSE (UA) 2+ (NEGATIVE); URINE KETONE NEGATIVE (NEGATIVE); URINE LEUK ESTERASE 3+ (NEGATIVE); URINE NITRITE NEGATIVE (NEGATIVE); URINE PROTEIN 2+ (NEGATIVE); URINE UROBILINOGEN NEGATIVE mg/dL (0.2-1.0)
[2018-02-25 21:37] LABS: EPI CELLS RARE /HPF (FEW); URINE BACTERIA RARE /hpf (NONE SEEN)
[2018-02-25 21:38] LABS: AMORP PHOS 4+ /hpf (NONE SEEN); TRIPLE PHOSPHATE CRYSTAL RARE /hpf (NONE SEEN)
[2018-02-25 23:02] LABS: PLATELET ESTIMATE DECREASED
[2018-02-25 23:23] LABS: ARTERIAL BLD GAS O2 SATURATION 98.4 % (90-98.9); ARTERIAL BLOOD GAS BASE EXCESS 2.8 meq/l (-2-2); ARTERIAL BLOOD GAS PCO2 45.4 mmHg (35-45); CARBOXYHEMOGLOBIN 1.3 gm% (0.5-2.0)
[2018-02-25 23:24] LABS: ALLENS TEST POSITIVE
[2018-02-25] MEDS ORDERED: SODIUM CHLORIDE 500 ML IV STA (23:39)
--- NOTE | 2018-02-25 23:45 | HP ---
Admitting History and Physical - Primary Care Physician PCP: Anne Lopez - Admission Chief Complaint: AMS, SOB History of Present Illness: This is a 53 y/o woman from home with a PMHx of: MS, Seizures, Trach (Vent @ night), PEG, Quadraplegia, Legally Blind, Trigemenial Neuralgia (Baclofen Pump) . Who presents to the ED with her mother for AMS, SOB. Patient is non-verbal without her speaking valve, her mother who was at bedside, provided HPI. The mother states" my daughter was acting different, not like herself, not as alert. " "just off". She also reports that the daughter appeared to be in distress and more agitated. The mother reports that the doctor uses the vent at night, but her sister placed her own it during the day, due to her increased agitation. The mother denies fever, chills, CP, palpitations, AP, N/V/D, constipation. 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: Multiple Sclerosis (quadraplegia), Other (legally blind, trigeminal neuralgia -> baclofen pump) Cardiovascular: Yes: HTN, Hyperlipdemia Pulmonary: Yes: Pneumonia, Previously Intubated, Other Gastrointestinal: Yes: Constipation (chronic) Renal/: Yes: Neurogenic Bladder ( neurogenic bladder, chronic perera catheter) ...LMP: 06/07/12 Heme/Onc: Yes: Anemia Infectious Disease: Yes: Other (pneumonia, uti treated by urologist) Musculoskeletal: Yes: Other (Quadraplegia) Dermatology: Yes: Other (chronic decubitus followed by wound care) - Smoking History Smoking history: Never smoked Have you smoked in the past 12 months: No Aproximately how many cigarettes per day: 0 - Alcohol/Substance Use Hx Alcohol Use: No History of Substance Use: reports: None - Social History ADL: Support Services History of Recent Travel: No Home Medications - Allergies Allergies/Adverse Reactions: Allergies Allergy/AdvReac Type Severity Reaction Status Date / Time chloral hydrate Allergy Intermediate Rash Verified 02/25/18 18:47 [Chloral Hydrate] azathioprine [From Imuran] Allergy Rash Verified 02/25/18 18:47 azathioprine sodium Allergy Rash Verified 02/25/18 18:47 [From Imuran] adhesive tape AdvReac Severe sensitivity Verified 02/25/18 18:47 to glue adhesive AdvReac Unknown Verified 02/25/18 18:47 - Home Medications Home Medications: Ambulatory Orders Levothyroxine [Synthroid -] 100 mcg PO DAILY@0700 #30 tablet 06/24/16 hydrALAZINE HCL [Apresoline -] 50 mg PO TID 02/11/17 Carbamazepine 100 mg PO TID 01/03/18 Loratadine 10 mg PO DAILY 01/03/18 Metoprolol Succinate 50 mg PO BID 01/03/18 Potassium Chloride [K-Dur -] 20 meq PO DAILY 01/03/18 Sertraline HCl 50 mg PO DAILY 01/03/18 Furosemide 20 mg PO DAILY 02/25/18 Family Disease History - Family Disease History Family Disease History: Diabetes: Sister, Other: Mother Review of Systems - Review of Systems Cardiovascular: reports: Shortness of Breath Respiratory: reports: SOB Neurological: reports: Confusion Physical Examination Vital Signs: Vital Signs Temperature 95.5 F L 02/25/18 23:29 Pulse Rate 74 02/25/18 23:29 Respiratory Rate 14 02/25/18 22:10 Blood Pressure 106/57 L 02/25/18 23:29 O2 Sat by Pulse Oximetry (%) 100 02/25/18 23:29 Constitutional: Yes: No Distress Eyes: Yes: Conjunctiva Clear HENT: Yes: WNL, Atraumatic, Normocephalic Neck: Yes: Supple Cardiovascular: Yes: Regular Rate and Rhythm, S1, S2 Respiratory: Yes: Other (trach with collar on ventilator) Gastrointestinal: Yes: Normal Bowel Sounds, Soft, Abdomen, Obese Renal/: Yes: Perera Present (from home 14fr with thick sediment in tubing) Breast(s): Yes: WNL Extremities: Yes: Other ( B/L heel protectors) Edema: No Peripheral Pulses WNL: Yes Integumentary: Yes: Pressure Ulcer (L- gluteal decubitus unstageable with serous , brownish drainage, +malodorous Sacral decubitus ulcer stage III/IV) Wound/Incision: Yes: Reddened (gluteal/sacral regions), Excoriated (gluteal/ sacral regions) Labs: CBC, BMP 02/25/18 20:31 02/25/18 20:31 Imaging - Results Chest X-ray: Image Reviewed Problem List - Problems (1) Sepsis Assessment/Plan: Likely secondary to UTI vs Decubitus qSOFA 2 Sepsis Criteria Met III: T Max 94.6, BP 103/57, +3 leukocyte esterase Neutrophils 91.6, 10 Bands UA- +3 leukocyte esterase, 37 WBC, +2 protein Urine Culture- pending Blood Cultures-pending Vancomycin, Zosyn given in ED, will continue for MDRS NS fluid bolus given in ED, BP improved Appreciate ID consult CBC, BMP in am Monitor vitals Maintain MAP > 65 Code(s): A41.9 - SEPSIS, UNSPECIFIED ORGANISM (2) Urinary tract infection Assessment/Plan: UA- +3 leukocyte esterase, 37 WBCs Urine Culture-pending Vancomycin, Zosyn given in ED, will continue for complicated UTI, MDRS Appreciate ID consult Monitor vitals Code(s): N39.0 - URINARY TRACT INFECTION, SITE NOT SPECIFIED Qualifiers: Urinary tract infection type: site unspecified Hematuria presence: with hematuria Qualified Code(s): N39.0 - Urinary tract infection, site not specified; R31.9 - Hematuria, unspecified (3) Acute on chronic respiratory failure with hypoxia and hypercapnia Assessment/Plan: ABG- 7.40/45.4/111/27.4/98.4 Vent Settings: FIO2 50%, TV 45, R 14, Peep 5 Appreciate Pulmonology consult Duoneb prn Aspiration precautions Code(s): J96.21 - ACUTE AND CHRONIC RESPIRATORY FAILURE WITH HYPOXIA; J96.22 - ACUTE AND CHRONIC RESPIRATORY FAILURE WITH HYPERCAPNIA (4) Altered mental status Assessment/Plan: Likely secondary to UTI Neurochecks Seizure Precautions Fall Precautions Monitor CBC, BMP Monitor vitals Code(s): R41.82 - ALTERED MENTAL STATUS, UNSPECIFIED (5) Elevated LFTs Assessment/Plan: Possibly due to Fatty Liver Disease vs Viral Hepatitis Will order Acute Hepatitis Panel BMP in am Consider RUQ US Code(s): R79.89 - OTHER SPECIFIED ABNORMAL FINDINGS OF BLOOD CHEMISTRY (6) HTN (hypertension) Assessment/Plan: Controlled Will monitor BP closely Continue home meds with parameters in am Monitor renal function Code(s): I10 - ESSENTIAL (PRIMARY) HYPERTENSION (7) Multiple sclerosis Assessment/Plan: Continue home meds Code(s): G35 - MULTIPLE SCLEROSIS (8) Muscle spasticity Assessment/Plan: Continue home meds Code(s): M62.838 - OTHER MUSCLE SPASM (9) Neurogenic bladder Assessment/Plan: Replace Perera Catheter Perera Care Monitor INOs Code(s): N31.9 - NEUROMUSCULAR DYSFUNCTION OF BLADDER, UNSPECIFIED (10) Trigeminal neuralgia Assessment/Plan: Continue home meds Code(s): G50.0 - TRIGEMINAL NEURALGIA (11) Tracheostomy dependence Assessment/Plan: Ventilator HS Trach care Code(s): Z93.0 - TRACHEOSTOMY STATUS (12) Functional quadriplegia Assessment/Plan: Complete immobility due to frailty, MS Requires total care Turn Q2h Mendez Lift as needed Heel Protectors Fall Precautions Code(s): R53.2 - FUNCTIONAL QUADRIPLEGIA Assessment/Plan This is a 53 y/o man with a PMHx of: MS, Seizures, Trigemenial Neuralgia, Trach (Vent at night), legally blind. Admitted for Acute Metabolic Encephalopathy secondary to UTI, Acute on Chronic Respiratory Failure, MS Flare for further evaluation of their emergent condition. Plan: FEN Gentle IVF prn Replete lytes prn NPO DVT ppx TEDs SCDs Hold AC secondary to Thrombocytopenia Code Status: Full Code Dispo: Requires Inpatient Care Visit type - Emergency Visit Emergency Visit: Yes ED Registration Date: 02/25/18 Care time: The patient presented to the Emergency Department on the above date and was hospitalized for further evaluation of their emergent condition. - New Patient This patient is new to me today: Yes Date on this admission: 02/25/18 - Critical Care Critical Care patient: No
[2018-02-26] MEDS ORDERED: SODIUM CHLORIDE 500 ML IV STA
[2018-02-26 06:13] LABS: BASO % 0.1 % (0-2.0); EOS % 0.2 % (0-4.5); HEMATOCRIT 24.8 % (32.4-45.2); LYMPH % 6.9 % (8-40); MCH 31.3 pg (25.7-33.7); MCHC 32.2 g/dl (32.0-36.0); MEAN CELL VOLUME 97.1 fl (80-96); MEAN PLT VOLUME 9.2 fl (7.5-11.1); MONO % 2.8 % (3.8-10.2); PLATELET COUNT 72 K/MM3 (134-434); RBC 2.56 M/mm3 (3.60-5.2); RDW 15.6 % (11.6-15.6); WHITE BLOOD COUNT 7.2 K/mm3 (4.0-10.0)
[2018-02-26] MEDS: LEVOTHYROXINE NA 100 MCG TABLET (FP) PO SCH (06:23)
[2018-02-26] MEDS: hydrALAZINE HCL 50 MG TABLET (FP) PO SCH ×3 (06:23→22:13)
[2018-02-26] MEDS: carBAMazepine 100 MG TAB.CHEW PO SCH ×3 (06:23→22:14)
[2018-02-26 07:42] LABS: ALBUMIN 2.1 g/dl (3.4-5.0); ALK PHOS 350 U/L (45-117); ANION GAP 7 MMOL/L (8-16); BILIRUBIN,TOTAL 0.2 mg/dL (0.2-1); BLOOD UREA NITROGEN 14 mg/dL (7-18); CALCIUM 8.6 mg/dL (8.5-10.1); CHLORIDE 103 mmol/L (98-107); CO2 27 mmol/L (21-32); CREATININE 0.6 mg/dL (0.55-1.3); GLUCOSE,RANDOM 63 mg/dL (74-106); POTASSIUM 4.6 mmol/L (3.5-5.1); SGOT/AST 37 U/L (15-37); SGPT/ALT 46 U/L (13-61); SODIUM 136 mmol/L (136-145); TOT PROT 6.1 g/dl (6.4-8.2)
[2018-02-26 09:28] LABS: INR 1.23 (0.83-1.09); PROTHROMBIN TIME (PATIENT) 14.6 SEC (9.7-13.0)
[2018-02-26] MEDS ORDERED: FUROSEMIDE 20 MG TABLET (FP) PO SCH (10:00)
[2018-02-26] MEDS ORDERED: PIPERACILLIN/TAZOB 3.375 GM 3.375 GM in DEXTROSE 5%-WATER - 50 ML IVPB ONE (10:00)
[2018-02-26] MEDS ORDERED: ACETAMINOPHEN 1000 MG/100 ML VIAL (NON FORMULARY) IVPB ONE (10:49)
[2018-02-26] MEDS ORDERED: DEXTROSE 5%-NORMAL SALINE 1,000 ML IV ONE (11:12)
[2018-02-26] MEDS: SODIUM CHLORIDE 1,000 ML IV SCH (11:17)
[2018-02-26] MEDS ORDERED: PIPERACILLIN/TAZOB 3.375 GM 3.375 GM/50 ML BAG IVPB ONE ×2 (11:23→17:30)
[2018-02-26] MEDS: LORATADINE 10 MG TABLET PO SCH (11:39)
[2018-02-26] MEDS: MULTIVITAMINS (DAILY MVI) TABLET (FP) PO SCH (11:39)
[2018-02-26] MEDS: FOLIC ACID 1 MG TABLET (FP) PO SCH (11:39)
[2018-02-26] MEDS: SERTRALINE HCL 50 MG TABLET (FP) PO SCH (11:40)
[2018-02-26] MEDS: ASCORBIC ACID 500 MG TABLET (FP) PO SCH (11:40)
--- NOTE | 2018-02-26 13:14 | CON.PULM ---
Consult Consult Specialty:: PULMONARY Referred by:: Dr. Lopez Reason for Consultation:: respiratory failure - History of Present Illness Chief Complaint: altered mental status History of Present Illness: 53yo female with h/o multiple sclerosis, chronic respiratory failure s/p trach/ PEG, bedbound who presents with altered mental status. Pt nonverbal at this time , unable to provide further history. At baseline, pt alert and verbal with speaking valve. On trach collar during day and on mechanical ventilation at night. CXR with chronic right sided atelectasis. Urinalysis suggestive of UTI. 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 chronic decubitus followed by wound care. neurogenic bladder, chronic perera catheter - Alcohol/Substance Use Hx Alcohol Use: No History of Substance Use: reports: None - Smoking History Smoking history: Never smoked Have you smoked in the past 12 months: No Aproximately how many cigarettes per day: 0 - Social History Usual Living Arrangement: With Parent ADL: Support Services History of Recent Travel: No Home Medications - Allergies Allergies/Adverse Reactions: Allergies Allergy/AdvReac Type Severity Reaction Status Date / Time chloral hydrate Allergy Intermediate Rash Verified 02/25/18 18:47 [Chloral Hydrate] azathioprine [From Imuran] Allergy Rash Verified 02/25/18 18:47 azathioprine sodium Allergy Rash Verified 02/25/18 18:47 [From Imuran] adhesive tape AdvReac Severe sensitivity Verified 02/25/18 18:47 to glue adhesive AdvReac Unknown Verified 02/25/18 18:47 - Home Medications Home Medications: Ambulatory Orders Levothyroxine [Synthroid -] 100 mcg PO DAILY@0700 #30 tablet 06/24/16 hydrALAZINE HCL [Apresoline -] 50 mg PO TID 02/11/17 Carbamazepine 100 mg PO TID 01/03/18 Loratadine 10 mg PO DAILY 01/03/18 Metoprolol Succinate 50 mg PO BID 01/03/18 Potassium Chloride [K-Dur -] 20 meq PO DAILY 01/03/18 Sertraline HCl 50 mg PO DAILY 01/03/18 Furosemide 20 mg PO DAILY 02/25/18 Family Disease History - Family Disease History Family Disease History: Diabetes: Sister, Other: Mother Review of Systems Unable to obtain ROS, reason: pt nonverbal Physical Exam Vital Sings: Vital Signs Temperature 101.8 F H 02/26/18 11:00 Pulse Rate 115 H 02/26/18 11:50 Respiratory Rate 18 02/26/18 12:39 Blood Pressure 147/70 02/26/18 11:00 O2 Sat by Pulse Oximetry (%) 100 02/26/18 11:00 Constitutional: Yes: Mild Distress Eyes: Yes: Conjunctiva Clear, EOM Intact HENT: Yes: Atraumatic, Normocephalic Neck: Yes: Supple, Trachea Midline Cardiovascular: Yes: Regular Rate and Rhythm Respiratory: Yes: Diminished (decreased breath sounds at the bases) ...Clubbing: No Gastrointestinal: Yes: Normal Bowel Sounds, Soft. No: Tenderness Edema: No Labs: CBC, BMP 02/26/18 05:08 02/26/18 05:08 ABG Results ABG pH 7.40 (7.35-7.45) 02/25/18 22:53 ABG pCO2 at Pt Temp 45.4 mmHg (35-45) H 02/25/18 22:53 ABG pO2 at Pt Temp 111.0 mmHg (80-100) H D 02/25/18 22:53 ABG HCO3 27.4 meq/L (22-26) H 02/25/18 22:53 ABG O2 Sat (Measured) 98.4 % (90-98.9) 02/25/18 22:53 ABG O2 Content 11.2 % vol (15-22) L 02/25/18 22:53 ABG Base Excess 2.8 meq/l (-2-2) H 02/25/18 22:53 Imaging - Results Chest X-ray: Report Reviewed, Image Reviewed (right atelectasis) Problem List - Problems (1) Acute on chronic respiratory failure with hypoxia and hypercapnia Code(s): J96.21 - ACUTE AND CHRONIC RESPIRATORY FAILURE WITH HYPOXIA; J96.22 - ACUTE AND CHRONIC RESPIRATORY FAILURE WITH HYPERCAPNIA (2) Urinary tract infection Code(s): N39.0 - URINARY TRACT INFECTION, SITE NOT SPECIFIED Qualifiers: Urinary tract infection type: site unspecified Hematuria presence: with hematuria Qualified Code(s): N39.0 - Urinary tract infection, site not specified; R31.9 - Hematuria, unspecified (3) Sepsis Code(s): A41.9 - SEPSIS, UNSPECIFIED ORGANISM (4) Decubital ulcer Code(s): L89.90 - PRESSURE ULCER OF UNSPECIFIED SITE, UNSPECIFIED STAGE Qualifiers: Pressure injury location: unspecified location Pressure injury stage: unspecified pressure injury stage Qualified Code(s): L89.90 - Pressure ulcer of unspecified site, unspecified stage (5) Multiple sclerosis Code(s): G35 - MULTIPLE SCLEROSIS (6) Functional quadriplegia Code(s): R53.2 - FUNCTIONAL QUADRIPLEGIA Assessment/Plan Acute on Chronic Hypoxic and Hypercapneic Respiratory Failure UTI Sepsis Favor Right Atelectasis > Pneumonia Multiple Sclerosis Functional Quadriplegia - IV antibiotics - f/u cultures - IVF - monitor urine output, creatinine - continue mechanical ventilation, volume assist control - taper Fio2 to keep Spo2 >90% - would not place on trach collar until mental status improved - enteral feeds - DVT/GI prophylaxis - can monitor on vent floor Thank you for this consult Tereso Terrell MD
--- NOTE | 2018-02-26 15:46 | EKG ---
Test Reason : Blood Pressure : / mmHG Vent. Rate : 088 BPM Atrial Rate : 088 BPM P-R Int : 192 ms QRS Dur : 114 ms QT Int : 348 ms P-R-T Axes : 051 014 057 degrees QTc Int : 421 ms NORMAL SINUS RHYTHM INCOMPLETE RIGHT BUNDLE BRANCH BLOCK BORDERLINE ECG WHEN COMPARED WITH ECG OF 25-JAN-2018 18:58, INCOMPLETE RIGHT BUNDLE BRANCH BLOCK IS NOW PRESENT Confirmed by JAMES PATIÑO, FLORA ([id number]) on 02/26/2018 3:46:13 PM Referred By: Confirmed By:FLORA RAMIREZ MD
[2018-02-26] MEDS ORDERED: VANCOMYCIN 1 GRAM (PRE-DOCKED) 1,000 MG/250 ML BAG IVPB ONE (16:18)
[2018-02-26] MEDS: VANCOMYCIN 1 GRAM (PRE-DOCKED) 1,000 MG/250 ML BAG IVPB SCH (16:24)
[2018-02-26 17:04] LABS: ARTERIAL BLOOD GAS pH 7.39 (7.35-7.45)
[2018-02-26 17:05] LABS: ALLENS TEST POSITIVE; ARTERIAL BLD GAS O2 SATURATION 99.1 % (90-98.9); ARTERIAL BLOOD GAS BASE EXCESS 2.1 meq/l (-2-2)
[2018-02-26] MEDS ORDERED: ACETAMINOPHEN INJECTION 100 ML IVPB ONE (17:30)
[2018-02-26] MEDS ORDERED: PIPERACILLIN/TAZOB 3.375 GM 3.375 GM in DEXTROSE 5%-WATER - 50 ML IVPB SCH (18:00)
[2018-02-26] MEDS: ACETAMINOPHEN 1000 MG/100 ML VIAL (NON FORMULARY) IVPB PRN (18:22)
[2018-02-26] MEDS: PIPERACILLIN/TAZOB 3.375 GM 3.375 GM in DEXTROSE 5%-WATER - 50 ML IVPB SCH (18:37)
--- NOTE | 2018-02-26 19:46 | PN ---
Progress Note, Physician History of Present Illness: 53 y/o female patient admitted for UTI, on IV ABT. Noted with HR 120s, febrile with temp at 101.8 rectally. Alert, awake, limited response to verbal commands , on mechanical vent. Noted to be pocketing food in mouth. CXR ordered to R/O aspiration which was neg but showed R atelectasis. Given tylenol 650 IVPB stat for fever and started on D5NS at 100cc/hr. After tylenol given and IVF started temp 100.2F and HR 110. - Current Medication List Current Medications: Active Medications Acetaminophen (Ofirmev Injection -) 1,000 mg IVPB Q6H PRN PRN Reason: FEVER Last Admin: 02/26/18 18:22 Dose: 1,000 mg Ascorbic Acid (Vitamin C -) 500 mg PO DAILY [facility] Last Admin: 02/26/18 11:40 Dose: Not Given Carbamazepine (Tegretol -) 100 mg PO TID [facility] Last Admin: 02/26/18 16:52 Dose: Not Given Folic Acid (Folic Acid -) 1 mg PO DAILY [facility] Last Admin: 02/26/18 11:39 Dose: Not Given Furosemide (Lasix -) 20 mg PO DAILY [facility] Last Admin: 02/26/18 11:39 Dose: Not Given Hydralazine HCl (Apresoline -) 50 mg PO TID [facility] Last Admin: 02/26/18 16:52 Dose: Not Given Sodium Chloride (Normal Saline -) 1,000 mls @ 100 mls/hr IV ASDIR [facility] Last Admin: 02/26/18 11:17 Dose: Not Given Dextrose/Sodium Chloride (D5-Ns -) 1,000 mls @ 100 mls/hr IV ASDIR ONE Stop: 02/26/18 21:11 Last Admin: 02/26/18 11:16 Dose: 100 mls/hr Piperacillin Sod/Tazobactam (Sod 3.375 gm/ Dextrose) 50 mls @ 100 mls/hr IVPB Q8H-IV [facility]; Protocol Last Admin: 02/26/18 18:37 Dose: 100 mls/hr Vancomycin HCl (Vancomycin (Pre-Docked)) 1,000 mg in 250 mls @ 200 mls/hr IVPB Q24H [facility]; Protocol Last Admin: 02/26/18 16:24 Dose: 200 mls/hr Levothyroxine Sodium (Synthroid -) 100 mcg PO DAILY@0700 [facility] Last Admin: 02/26/18 06:23 Dose: 100 mcg Loratadine (Claritin -) 10 mg PO DAILY [facility] Last Admin: 02/26/18 11:39 Dose: Not Given Metoprolol Succinate (Toprol Xl -) 50 mg PO BID [facility] Last Admin: 02/26/18 11:40 Dose: Not Given Mirtazapine (Remeron -) 7.5 mg PO [facility] Multivitamins/Minerals/Vitamin C (Tab-A-Vit -) 1 tab PO DAILY [facility] Last Admin: 02/26/18 11:39 Dose: Not Given Sertraline HCl (Zoloft -) 50 mg PO DAILY [facility] Last Admin: 02/26/18 11:40 Dose: 50 mg - Objective Vital Signs: Vital Signs Temperature 100.2 F H 02/26/18 15:34 Pulse Rate 115 H 02/26/18 17:00 Respiratory Rate 14 02/26/18 17:00 Blood Pressure 149/76 02/26/18 17:00 O2 Sat by Pulse Oximetry (%) 100 02/26/18 17:00 Constitutional: Yes: Well Nourished, Mild Distress Neck: Yes: Supple Cardiovascular: Yes: Tachycardia Respiratory: Yes: Diminished (at bases) Gastrointestinal: Yes: Normal Bowel Sounds, Soft Musculoskeletal: Yes: Muscle Weakness Extremities: Yes: WNL Edema: No Integumentary: Yes: Pressure Ulcer (sacral) Neurological: Yes: Alert Psychiatric: Yes: Alert Labs: CBC, BMP 02/26/18 05:08 02/26/18 05:08 INR, PTT INR 1.23 (0.83-1.09) H 02/26/18 08:36 Problem List - Problems (1) Sacral decubitus ulcer, stage IV Code(s): L89.154 - PRESSURE ULCER OF SACRAL REGION, STAGE 4 (2) Urinary tract infection Code(s): N39.0 - URINARY TRACT INFECTION, SITE NOT SPECIFIED Qualifiers: Urinary tract infection type: site unspecified Hematuria presence: with hematuria Qualified Code(s): N39.0 - Urinary tract infection, site not specified; R31.9 - Hematuria, unspecified (3) Altered mental status Code(s): R41.82 - ALTERED MENTAL STATUS, UNSPECIFIED (4) Atelectasis Code(s): J98.11 - ATELECTASIS (5) Tachycardia Code(s): R00.0 - TACHYCARDIA, UNSPECIFIED Assessment/Plan -cont IV ABT, pending urine culture -pulm on board -cont mechanical ventilor, monitor ABG -ID on board -Hg 8.0, trend H/H, will order type and screen if Hg <8.0 for possible transfusion -tylenol PRN for fever >100F -D5NS at 100cc/hr -speech consult due to pocketing food in mouth
--- NOTE | 2018-02-26 19:55 | CONSULT ---
Consult Consult Specialty:: Hematology Referred by:: Dr. Sanches Reason for Consultation:: Anemia - History of Present Illness Chief Complaint: Altered mental status History of Present Illness: 53F with MS c/b quadriplegia s/p trach/PEG, legally blind , neurogenic bladder s /p perera catheter, seizure d/o admitted with AMS and was found to have UTI. Hematology consulted for anemia. Hgb was 9.4 on admission, 8 today, mildly macrocytic. Plt count 72, WBC normal. INR 1.2. Pt with chronic anemia since 2012 , with baseline Hgb ~9-10. Plt counts have been variable with occasional mild thrombocytopenia. Last was 387 on 01/26/18. No recent anemia w/u. Pt is unable to provide history. No bleeding. Per cousin at bedside, has been less interactive. 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 chronic decubitus followed by wound care. neurogenic bladder, chronic perera catheter - Alcohol/Substance Use Hx Alcohol Use: No History of Substance Use: reports: None - Smoking History Smoking history: Never smoked Have you smoked in the past 12 months: No Aproximately how many cigarettes per day: 0 - Social History Usual Living Arrangement: With Parent ADL: Support Services History of Recent Travel: No Home Medications - Allergies Allergies/Adverse Reactions: Allergies Allergy/AdvReac Type Severity Reaction Status Date / Time chloral hydrate Allergy Intermediate Rash Verified 02/25/18 18:47 [Chloral Hydrate] azathioprine [From Imuran] Allergy Rash Verified 02/25/18 18:47 azathioprine sodium Allergy Rash Verified 02/25/18 18:47 [From Imuran] adhesive tape AdvReac Severe sensitivity Verified 02/25/18 18:47 to glue adhesive AdvReac Unknown Verified 02/25/18 18:47 - Home Medications Home Medications: Ambulatory Orders Levothyroxine [Synthroid -] 100 mcg PO DAILY@0700 #30 tablet 06/24/16 hydrALAZINE HCL [Apresoline -] 50 mg PO TID 02/11/17 Carbamazepine 100 mg PO TID 01/03/18 Loratadine 10 mg PO DAILY 01/03/18 Metoprolol Succinate 50 mg PO BID 01/03/18 Potassium Chloride [K-Dur -] 20 meq PO DAILY 01/03/18 Sertraline HCl 50 mg PO DAILY 01/03/18 Furosemide 20 mg PO DAILY 02/25/18 Family Disease History - Family Disease History Family Disease History: Diabetes: Sister, Other: Mother Physical Exam Vital Signs: Vital Signs Temperature 100.2 F H 02/26/18 15:34 Pulse Rate 115 H 02/26/18 17:00 Respiratory Rate 14 02/26/18 17:00 Blood Pressure 149/76 02/26/18 17:00 O2 Sat by Pulse Oximetry (%) 100 02/26/18 17:00 Constitutional: Yes: Calm Cardiovascular: Yes: Regular Rate and Rhythm Respiratory: Yes: CTA Bilaterally Gastrointestinal: Yes: WNL, Soft Edema: No Labs: CBC, BMP 02/26/18 05:08 02/26/18 05:08 Assessment/Plan 53F with MS c/b quadriplegia, legally blind , neurogenic bladder s/p perera catheter seizure d/o, trach, PEG admitted with AMS and was found to have UTI. Also with slight worsening of chronic anemia and new thrombocytopenia. Peripheral smear with few small platelet clumps, mild anisopoikilocytosis, rare RBC fragments, no obvious e/o dysplasia Please check retics, b12, folate, and iron studies; PTT, fibrinogen, and plt count in blue top tube Most likely thrombocytopenia is related to infection Will follow
[2018-02-26] MEDS ORDERED: VANCOMYCIN 1,500 MG in DEXTROSE 5%-WATER - 500 ML IVPB SCH (22:00)
[2018-02-26] MEDS: MIRTAZAPINE 15 MG TABLET (FP) PO SCH (22:14)
[2018-02-26 23:36] LABS: ARTERIAL BLD GAS O2 SATURATION 99.5 % (90-98.9); ARTERIAL BLOOD GAS BASE EXCESS 2.3 meq/l (-2-2); ARTERIAL BLOOD GAS PCO2 42.7 mmHg (35-45); ARTERIAL BLOOD GAS pH 7.41 (7.35-7.45)
[2018-02-26 23:39] LABS: ALLENS TEST POSITIVE
[2018-02-27] MEDS ORDERED: PIPERACILLIN/TAZOB 3.375 GM 3.375 GM/50 ML BAG IVPB ONE (02:10)
[2018-02-27] MEDS: PIPERACILLIN/TAZOB 3.375 GM 3.375 GM in DEXTROSE 5%-WATER - 50 ML IVPB SCH ×3 (02:20→19:00)
[2018-02-27] MEDS: hydrALAZINE HCL 50 MG TABLET (FP) PO SCH ×3 (05:59→21:56)
[2018-02-27] MEDS: carBAMazepine 100 MG TAB.CHEW PO SCH ×3 (06:00→21:59)
[2018-02-27] MEDS: LEVOTHYROXINE NA 100 MCG TABLET (FP) PO SCH (06:02)
[2018-02-27 06:16] LABS: BASO % 0.2 % (0-2.0); EOS % 0.1 % (0-4.5); HEMATOCRIT 26.7 % (32.4-45.2); HEMOGLOBIN 8.7 GM/dL (10.7-15.3); LYMPH % 6.3 % (8-40); MCH 31.4 pg (25.7-33.7); MCHC 32.5 g/dl (32.0-36.0); MEAN CELL VOLUME 96.8 fl (80-96); MEAN PLT VOLUME 8.9 fl (7.5-11.1); MONO % 4.6 % (3.8-10.2); NEUT % 88.8 % (42.8-82.8); PLATELET COUNT 81 K/MM3 (134-434); RBC 2.75 M/mm3 (3.60-5.2); RDW 15.6 % (11.6-15.6); RETICULOCYTES 0.37 % (0.5-1.5); WHITE BLOOD COUNT 8.8 K/mm3 (4.0-10.0)
[2018-02-27 07:09] LABS: HEP.C VIRUS AB 0.3 s/co ratio (0.0-0.9)
[2018-02-27 07:42] LABS: ALBUMIN 2.2 g/dl (3.4-5.0); ALK PHOS 349 U/L (45-117); ANION GAP 8 MMOL/L (8-16); BILIRUBIN,TOTAL 0.4 mg/dL (0.2-1); BLOOD UREA NITROGEN 13 mg/dL (7-18); CALCIUM 8.9 mg/dL (8.5-10.1); CHLORIDE 101 mmol/L (98-107); CO2 27 mmol/L (21-32); CREATININE 0.6 mg/dL (0.55-1.3); GLUCOSE,RANDOM 60 mg/dL (74-106); POTASSIUM 4.3 mmol/L (3.5-5.1); SGOT/AST 30 U/L (15-37); SGPT/ALT 37 U/L (13-61); SODIUM 136 mmol/L (136-145); TOT PROT 6.7 g/dl (6.4-8.2)
--- NOTE | 2018-02-27 09:35 | PN ---
Progress Note, Physician - Current Medication List Current Medications: Active Medications Acetaminophen (Ofirmev Injection -) 1,000 mg IVPB Q6H PRN PRN Reason: FEVER Last Admin: 02/26/18 18:22 Dose: 1,000 mg Ascorbic Acid (Vitamin C -) 500 mg PO DAILY [facility] Last Admin: 02/26/18 11:40 Dose: Not Given Carbamazepine (Tegretol -) 100 mg PO TID [facility] Last Admin: 02/27/18 06:00 Dose: Not Given Folic Acid (Folic Acid -) 1 mg PO DAILY [facility] Last Admin: 02/26/18 11:39 Dose: Not Given Furosemide (Lasix -) 20 mg PO DAILY [facility] Last Admin: 02/26/18 11:39 Dose: Not Given Hydralazine HCl (Apresoline -) 50 mg PO TID [facility] Last Admin: 02/27/18 05:59 Dose: Not Given Sodium Chloride (Normal Saline -) 1,000 mls @ 100 mls/hr IV ASDIR [facility] Last Admin: 02/26/18 11:17 Dose: Not Given Piperacillin Sod/Tazobactam (Sod 3.375 gm/ Dextrose) 50 mls @ 100 mls/hr IVPB Q8H-IV [facility]; Protocol Last Admin: 02/27/18 02:20 Dose: 100 mls/hr Vancomycin HCl (Vancomycin (Pre-Docked)) 1,000 mg in 250 mls @ 200 mls/hr IVPB Q24H [facility]; Protocol Last Admin: 02/26/18 16:24 Dose: 200 mls/hr Levothyroxine Sodium (Synthroid -) 100 mcg PO DAILY@0700 [facility] Last Admin: 02/27/18 06:02 Dose: Not Given Loratadine (Claritin -) 10 mg PO DAILY [facility] Last Admin: 02/26/18 11:39 Dose: Not Given Metoprolol Succinate (Toprol Xl -) 50 mg PO BID [facility] Last Admin: 02/26/18 22:14 Dose: Not Given Mirtazapine (Remeron -) 7.5 mg PO HS [facility] Last Admin: 02/26/18 22:14 Dose: Not Given Multivitamins/Minerals/Vitamin C (Tab-A-Vit -) 1 tab PO DAILY [facility] Last Admin: 02/26/18 11:39 Dose: Not Given Sertraline HCl (Zoloft -) 50 mg PO DAILY [facility] Last Admin: 02/26/18 11:40 Dose: 50 mg - Objective Vital Signs: Vital Signs Temperature 98.6 F 02/27/18 06:47 Pulse Rate 103 H 02/27/18 08:46 Respiratory Rate 18 02/27/18 08:46 Blood Pressure 150/71 02/27/18 08:46 O2 Sat by Pulse Oximetry (%) 99 02/27/18 08:46 Cardiovascular: Yes: S1, S2 Respiratory: Yes: Diminished, Rhonchi, Other (trach) Gastrointestinal: Yes: Normal Bowel Sounds, Soft Wound/Incision: Yes: Dressing Removed, Other (pressure ulcers) Labs: CBC, BMP 02/27/18 05:08 02/27/18 05:08 INR, PTT INR 1.23 (0.83-1.09) H 02/26/18 08:36 Fibrinogen > 500.0 mg/dL (238-498) H 02/27/18 05:08 Problem List - Problems (1) Acute on chronic respiratory failure with hypoxia and hypercapnia Assessment/Plan: Monitor resp status oxygen nebs Code(s): J96.21 - ACUTE AND CHRONIC RESPIRATORY FAILURE WITH HYPOXIA; J96.22 - ACUTE AND CHRONIC RESPIRATORY FAILURE WITH HYPERCAPNIA (2) Decubital ulcer Assessment/Plan: IV abx Surgical consult Code(s): L89.90 - PRESSURE ULCER OF UNSPECIFIED SITE, UNSPECIFIED STAGE Qualifiers: Pressure injury location: unspecified location Pressure injury stage: unspecified pressure injury stage Qualified Code(s): L89.90 - Pressure ulcer of unspecified site, unspecified stage (3) Urinary tract infection Assessment/Plan: IV Abx Cultures Code(s): N39.0 - URINARY TRACT INFECTION, SITE NOT SPECIFIED Qualifiers: Urinary tract infection type: site unspecified Hematuria presence: with hematuria Qualified Code(s): N39.0 - Urinary tract infection, site not specified; R31.9 - Hematuria, unspecified (4) Hx of multiple sclerosis Code(s): Z86.69 - PERSONAL HISTORY OF DIS OF THE NERVOUS SYS AND SENSE ORGANS (5) Pneumonia Assessment/Plan: --R/O Swallow eval Code(s): J18.9 - PNEUMONIA, UNSPECIFIED ORGANISM Qualifiers: Pneumonia type: pneumonia due to methicillin-resistant Staphylococcus aureus (MRSA)
[2018-02-27] MEDS ORDERED: PIPERACILLIN/TAZOBACTAM 3.375 GM VIAL IVPB ONE ×3 (10:45→18:57)
[2018-02-27] MEDS ORDERED: DEXTROSE 5%-WATER - 50 ML IVPB ONE ×3 (10:46→18:57)
--- NOTE | 2018-02-27 10:52 | PN ---
Progress Note (short form) - Note Progress Note: PULMONARY Vented, no fevers recorded. More awake today. Vital Signs Period Temp Pulse Resp BP Sys/Morillo Pulse Ox Last 24 Hr 98.6 F-101.8 F 72-126 14-21 147-165/69-87 99-100 Gen: vented, awake Heart: RRR Lung: decresed breath sounds at the bases Abd: soft, nontender Ext: no edema CBC, BMP 02/27/18 05:08 02/27/18 05:08 Active Medications Acetaminophen (Ofirmev Injection -) 1,000 mg IVPB Q6H PRN PRN Reason: FEVER Last Admin: 02/26/18 18:22 Dose: 1,000 mg Ascorbic Acid (Vitamin C -) 500 mg PO DAILY [facility] Last Admin: 02/26/18 11:40 Dose: Not Given Carbamazepine (Tegretol -) 100 mg PO TID [facility] Last Admin: 02/27/18 06:00 Dose: Not Given Folic Acid (Folic Acid -) 1 mg PO DAILY [facility] Last Admin: 02/26/18 11:39 Dose: Not Given Hydralazine HCl (Apresoline -) 50 mg PO TID [facility] Last Admin: 02/27/18 05:59 Dose: Not Given Sodium Chloride (Normal Saline -) 1,000 mls @ 100 mls/hr IV ASDIR [facility] Last Admin: 02/26/18 11:17 Dose: Not Given Piperacillin Sod/Tazobactam (Sod 3.375 gm/ Dextrose) 50 mls @ 100 mls/hr IVPB Q8H-IV [facility]; Protocol Last Admin: 02/27/18 02:20 Dose: 100 mls/hr Vancomycin HCl (Vancomycin (Pre-Docked)) 1,000 mg in 250 mls @ 200 mls/hr IVPB Q24H [facility]; Protocol Last Admin: 02/26/18 16:24 Dose: 200 mls/hr Levothyroxine Sodium (Synthroid -) 100 mcg PO DAILY@0700 [facility] Last Admin: 02/27/18 06:02 Dose: Not Given Loratadine (Claritin -) 10 mg PO DAILY [facility] Last Admin: 02/26/18 11:39 Dose: Not Given Metoprolol Succinate (Toprol Xl -) 50 mg PO BID [facility] Last Admin: 02/26/18 22:14 Dose: Not Given Mirtazapine (Remeron -) 7.5 mg PO [facility] Last Admin: 02/26/18 22:14 Dose: Not Given Multivitamins/Minerals/Vitamin C (Tab-A-Vit -) 1 tab PO DAILY [facility] Last Admin: 02/26/18 11:39 Dose: Not Given Sertraline HCl (Zoloft -) 50 mg PO DAILY [facility] Last Admin: 02/26/18 11:40 Dose: 50 mg A/P Acute on Chronic Hypoxic and Hypercapneic Respiratory Failure UTI Sepsis Favor Right Atelectasis > Pneumonia Multiple Sclerosis Functional Quadriplegia - IV antibiotics per ID - f/u cultures - IVF - monitor urine output, creatinine - continue mechanical ventilation, volume assist control - taper Fio2 to keep Spo2 >90% - would not place on trach collar until mental status improved - enteral feeds - DVT/GI prophylaxis - can monitor on vent floor Problem List - Problems (1) Acute on chronic respiratory failure with hypoxia and hypercapnia Code(s): J96.21 - ACUTE AND CHRONIC RESPIRATORY FAILURE WITH HYPOXIA; J96.22 - ACUTE AND CHRONIC RESPIRATORY FAILURE WITH HYPERCAPNIA (2) Urinary tract infection Code(s): N39.0 - URINARY TRACT INFECTION, SITE NOT SPECIFIED Qualifiers: Urinary tract infection type: site unspecified Hematuria presence: with hematuria Qualified Code(s): N39.0 - Urinary tract infection, site not specified; R31.9 - Hematuria, unspecified (3) Sepsis Code(s): A41.9 - SEPSIS, UNSPECIFIED ORGANISM (4) Decubital ulcer Code(s): L89.90 - PRESSURE ULCER OF UNSPECIFIED SITE, UNSPECIFIED STAGE Qualifiers: Pressure injury location: unspecified location Pressure injury stage: unspecified pressure injury stage Qualified Code(s): L89.90 - Pressure ulcer of unspecified site, unspecified stage (5) Multiple sclerosis Code(s): G35 - MULTIPLE SCLEROSIS (6) Functional quadriplegia Code(s): R53.2 - FUNCTIONAL QUADRIPLEGIA
[2018-02-27] MEDS: LORATADINE 10 MG TABLET PO SCH (11:10)
[2018-02-27] MEDS: FOLIC ACID 1 MG TABLET (FP) PO SCH (11:10)
[2018-02-27] MEDS: ASCORBIC ACID 500 MG TABLET (FP) PO SCH (11:10)
[2018-02-27] MEDS: SERTRALINE HCL 50 MG TABLET (FP) PO SCH (11:11)
[2018-02-27] MEDS: SODIUM CHLORIDE 1,000 ML IV SCH (11:12)
--- NOTE | 2018-02-27 11:23 | PN ---
Progress Note (short form) - Note Progress Note: ID Consult dictated Toxic metabolic encephalopathy UTI R/O sepsis secondary to UTI RLL pneumonia vs. atelectasis S/P hypothermia/ fever Thrombocytopenia ? sepsis Chronically elevated Alk phos Decubitus ulcers Respiratory failure Neurogenic bladder Advanced MS Pending sepsis workup, empiric zosyn/vancomycin Discussed with family at bedside
[2018-02-27] MEDS: MULTIVITAMINS (DAILY MVI) TABLET (FP) PO SCH (11:49)
--- NOTE | 2018-02-27 12:11 | CONS ---
DATE OF CONSULTATION: DATE OF DICTATION: 02/27/2018 The patient is a 53-year-old female with a history of advanced multiple sclerosis, neurogenic bladder with indwelling Raza catheter, history of respiratory failure, status post tracheostomy evaluated for sepsis. She was admitted to the hospital on February 26, 2018, with altered mental status. According to the family, she had an abrupt change in her mental status associated with dyspnea. She was less responsive than normal and had a repetitive speech pattern. She was evaluated in the emergency room, where she was initially found to be hypothermic. Cultures were obtained. She was empirically treated with vancomycin and Zosyn. At the present time, she is awake; however, she is not verbally responsive. Her eyes are open; however, she does not attempt to converse. Her breathing is nonlabored on mechanical ventilation. Of note, she has an indwelling Raza catheter, which is changed on a regular basis. She also has a tracheostomy, which was replaced approximately 24 hours prior to admission. She has had multiple hospitalizations for sepsis syndrome and toxic metabolic encephalopathy. PAST MEDICAL HISTORY: Positive for advanced multiple sclerosis. Patient is bedbound and functional quadriplegic. Neurogenic bladder with indwelling Raza catheter, hypertension, seizure disorder. PAST SURGICAL HISTORY: Status post tracheostomy, feeding gastrostomy, and Baclofen pump. ALLERGIES: CHLOROHYDRATE and IMURAN. MEDICATIONS: Synthroid; Apresoline; carbamazepine; metoprolol; Lasix. SOCIAL HISTORY: She resides at home with family members, dependent in activities of daily living. No tobacco or alcohol use. LABORATORY DATA: White count 8.8, hematocrit 26.7, platelet count 81. BUN 13, creatinine 0.6. Urinalysis with 37 white cells. Total bilirubin 0.4, alkaline phosphatase 349, AST 30. Blood and urine cultures are pending. CHEST X-RAY: Atelectasis versus infiltrate at the right base. PHYSICAL EXAMINATION; General: She is awake, she is not verbally responsive, she is on mechanical ventilation. Vital Signs: Temperature 98.6, temperature maximum 101.8, blood pressure 150/71, pulse 103 and regular, respirations 18/min. HEENT: Sclerae anicteric. Neck: Tracheostomy is present. Heart Sounds: S1, S2. Lungs: Air entry bilaterally. Abdomen: Soft. No tenderness elicited. Positive Baclofen pump. Extremities: Negative for edema. Stage IV ischial decubitus. IMPRESSION: 1. Toxic metabolic encephalopathy. 2. Urinary tract infection, possible sepsis secondary to urinary tract infection. 3. Right lower lobe pneumonia versus atelectasis. 4. Thrombocytopenia, likely secondary to sepsis. 5. Decubitus ulcers. 6. Respiratory failure. 7. Neurogenic bladder. 8. Advanced multiple sclerosis. 9. Chronically elevated alkaline phosphatase. Await culture results. Patient with sepsis syndrome, including altered mental status, hypothermia, thrombocytopenia. Await sepsis workup. Continue empiric Zosyn and vancomycin, aspiration precautions, mechanical ventilation, local wound care. Case discussed with family members present at the time of the examination. Thank you for the kind referral. MARGY MUÑIZ M.D. [id number]
[2018-02-27] MEDS: ALBUTEROL SO4 2.5/IPRATROPIUM 0.5 INH SOL 3 ML VIAL.NEB. NEB SCH ×3 (12:20→20:28)
[2018-02-27] MEDS ORDERED: PT OWN MED DRAWER 7, Y5N ONE ×2 (13:44→21:49)
[2018-02-27] MEDS: VANCOMYCIN 1 GRAM (PRE-DOCKED) 1,000 MG/250 ML BAG IVPB SCH (13:55)
[2018-02-27 20:26] LABS: ARTERIAL BLD GAS O2 SATURATION 98.1 % (90-98.9); ARTERIAL BLOOD GAS BASE EXCESS 1.8 meq/l (-2-2); ARTERIAL BLOOD GAS PCO2 41.4 mmHg (35-45); ARTERIAL BLOOD GAS pH 7.41 (7.35-7.45)
[2018-02-27 20:28] LABS: ALLENS TEST POSITIVE
[2018-02-27] MEDS: DEXTROSE 5%-NORMAL SALINE 1,000 ML IV SCH (20:30)
[2018-02-27 21:47] LABS: HEMOGLOBIN 8.2 GM/dL (10.7-15.3); MCH 31.6 pg (25.7-33.7); MCHC 32.8 g/dl (32.0-36.0); MEAN CELL VOLUME 96.4 fl (80-96); MEAN PLT VOLUME 8.2 fl (7.5-11.1); PLATELET COUNT 82 K/MM3 (134-434); RBC 2.59 M/mm3 (3.60-5.2); RDW 15.4 % (11.6-15.6)
[2018-02-27] MEDS: METOPROLOL TARTRATE 50 MG TABLET (FP) PO SCH (21:56)
[2018-02-27] MEDS: MIRTAZAPINE 15 MG TABLET (FP) PO SCH (21:56)
[2018-02-27 22:44] LABS: ALK PHOS 301 U/L (45-117); ANION GAP 8 MMOL/L (8-16); BILIRUBIN,TOTAL 0.4 mg/dL (0.2-1); BLOOD UREA NITROGEN 15 mg/dL (7-18); CALCIUM 8.5 mg/dL (8.5-10.1); CHLORIDE 100 mmol/L (98-107); CO2 26 mmol/L (21-32); CREATININE 0.6 mg/dL (0.55-1.3); GLUCOSE,RANDOM 85 mg/dL (74-106); POTASSIUM 3.9 mmol/L (3.5-5.1); SGOT/AST 26 U/L (15-37); SGPT/ALT 29 U/L (13-61); SODIUM 135 mmol/L (136-145); TOT PROT 6.1 g/dl (6.4-8.2)
--- NOTE | 2018-02-27 23:03 | PN ---
Progress Note, Physician Chief Complaint: AMS History of Present Illness: 53F with MS c/b quadriplegia s/p trach/PEG, legally blind , neurogenic bladder s /p perera catheter, seizure d/o admitted with AMS and was found to have UTI. Hematology consulted for anemia. Hgb was 9.4 on admission, 8 today, mildly macrocytic. Plt count 72, WBC normal. INR 1.2. Pt with chronic anemia since 2012 , with baseline Hgb ~9-10. Plt counts have been variable with occasional mild thrombocytopenia. Last was 387 on 01/26/18. No recent anemia w/u. Pt is unable to provide history. No bleeding. Per cousin at bedside, has been less interactive. - Current Medication List Current Medications: Active Medications Acetaminophen (Ofirmev Injection -) 1,000 mg IVPB Q6H PRN PRN Reason: FEVER Last Admin: 02/26/18 18:22 Dose: 1,000 mg Albuterol/Ipratropium (Duoneb -) 1 amp NEB RQID [facility] Last Admin: 02/27/18 15:50 Dose: 1 amp Ascorbic Acid (Vitamin C -) 500 mg PO DAILY [facility] Last Admin: 02/27/18 11:10 Dose: 500 mg Carbamazepine (Tegretol -) 100 mg PO TID [facility] Last Admin: 02/27/18 21:59 Dose: 100 mg Folic Acid (Folic Acid -) 1 mg PO DAILY [facility] Last Admin: 02/27/18 11:10 Dose: 1 mg Hydralazine HCl (Apresoline -) 50 mg PO TID [facility] Last Admin: 02/27/18 21:56 Dose: 50 mg Sodium Chloride (Normal Saline -) 1,000 mls @ 100 mls/hr IV ASDIR [facility] Last Admin: 02/27/18 11:12 Dose: 100 mls/hr Piperacillin Sod/Tazobactam (Sod 3.375 gm/ Dextrose) 50 mls @ 100 mls/hr IVPB Q8H-IV [facility]; Protocol Last Admin: 02/27/18 19:00 Dose: 100 mls/hr Vancomycin HCl (Vancomycin (Pre-Docked)) 1,000 mg in 250 mls @ 200 mls/hr IVPB Q24H [facility]; Protocol Last Admin: 02/27/18 13:55 Dose: 200 mls/hr Dextrose/Sodium Chloride (D5-Ns -) 1,000 mls @ 42 mls/hr IV ASDIR [facility] Stop: 02/28/18 23:59 Last Admin: 02/27/18 20:30 Dose: 42 mls/hr Levothyroxine Sodium (Synthroid -) 100 mcg PO DAILY@0700 [facility] Last Admin: 02/27/18 06:02 Dose: Not Given Loratadine (Claritin -) 10 mg PO DAILY [facility] Last Admin: 02/27/18 11:10 Dose: 10 mg Metoprolol Tartrate (Lopressor -) 50 mg PO BID [facility] Last Admin: 02/27/18 21:56 Dose: 50 mg Mirtazapine (Remeron -) 7.5 mg PO HS [facility] Last Admin: 02/27/18 21:56 Dose: 7.5 mg Multivitamins/Minerals/Vitamin C (Tab-A-Vit -) 1 tab PO DAILY [facility] Last Admin: 02/27/18 11:49 Dose: 1 tab Sertraline HCl (Zoloft -) 50 mg PO DAILY [facility] Last Admin: 02/27/18 11:11 Dose: 50 mg - Objective Vital Signs: Vital Signs Temperature 98.2 F 02/27/18 18:00 Pulse Rate 91 H 02/27/18 18:00 Respiratory Rate 14 02/27/18 22:00 Blood Pressure 129/74 02/27/18 18:00 O2 Sat by Pulse Oximetry (%) 99 02/27/18 10:30 Constitutional: Yes: Pallor Neck: Yes: Supple Cardiovascular: Yes: WNL, Regular Rate and Rhythm Respiratory: Yes: Regular, CTA Bilaterally Gastrointestinal: Yes: WNL, Soft Labs: CBC, BMP 02/27/18 21:00 02/27/18 21:00 INR, PTT INR 1.23 (0.83-1.09) H 02/26/18 08:36 Fibrinogen > 500.0 mg/dL (238-498) H 02/27/18 05:08 Assessment/Plan 53F with MS c/b quadriplegia, legally blind , neurogenic bladder s/p perera catheter seizure d/o, trach, PEG admitted with AMS and was found to have UTI. Also with slight worsening of chronic anemia and new thrombocytopenia. Peripheral smear with few small platelet clumps, mild anisopoikilocytosis, rare RBC fragments, no obvious e/o dysplasia. No evidence of nutritional deficiency on labs. Most likely anemia of chronic inflammation. Hgb stable today. Plts did not correct in citrate but trending up today. Noted to have chronic PTT prolongation. Will check mixing study.
[2018-02-28] MEDS ORDERED: DEXTROSE 5%-WATER - 50 ML IVPB ONE ×3 (01:10→17:44)
[2018-02-28] MEDS ORDERED: PIPERACILLIN/TAZOBACTAM 3.375 GM VIAL IVPB ONE ×4 (01:10→17:44)
[2018-02-28] MEDS: PIPERACILLIN/TAZOB 3.375 GM 3.375 GM in DEXTROSE 5%-WATER - 50 ML IVPB SCH ×3 (01:11→17:58)
[2018-02-28 04:11] LABS: SERUM IRON SATURATION 14 % (15-55); TOTAL IRON BINDING CAPACITY 207 ug/dL (250-450); UIBC 179 ug/dL (131-425)
[2018-02-28] MEDS: carBAMazepine 100 MG TAB.CHEW PO SCH ×3 (06:26→22:29)
[2018-02-28] MEDS: hydrALAZINE HCL 50 MG TABLET (FP) PO SCH ×3 (06:26→22:17)
[2018-02-28] MEDS: LEVOTHYROXINE NA 100 MCG TABLET (FP) PO SCH (06:26)
[2018-02-28] MEDS: ALBUTEROL SO4 2.5/IPRATROPIUM 0.5 INH SOL 3 ML VIAL.NEB. NEB SCH ×4 (07:25→21:30)
--- NOTE | 2018-02-28 09:31 | PN ---
Progress Note (short form) - Note Progress Note: awake, on vent via trach family at bedside reports she is more alert today Vital Signs Period Temp Pulse Resp BP Sys/Morillo Pulse Ox Last 24 Hr 97.8 F-98.2 F 54-101 14-20 129-164/66-93 99-100 trach cor-rrr lungs decreased bs at bases abd soft,nt ext no edema perera CBC, BMP 02/27/18 21:00 02/27/18 21:00 cxray RLL infiltrate, bibasilar changes Microbiology 02/27/18 11:45 Urine - Urine Perera Urine Culture - Final Contaminated: Please Repeat 02/25/18 20:31 Blood - Peripheral Venous Blood Culture - Preliminary NO GROWTH OBTAINED AFTER 48 HOURS, INCUBATION TO CONTINUE FOR 3 DAYS. 02/25/18 20:31 Blood - Peripheral Venous Blood Culture - Preliminary NO GROWTH OBTAINED AFTER 48 HOURS, INCUBATION TO CONTINUE FOR 3 DAYS. 02/25/18 21:19 Urine - Urine Perera Urine Culture - Final Contaminated: Please Repeat a/p toxic metabolic encephalopathy- improved probable RLL pneumonia ?uti would continue vanco/zosyn sent legionella urinary antigen sent sputum culture d/w mother at bedside
[2018-02-28] MEDS ORDERED: PT OWN MED DRAWER 7, Y5N ONE ×2 (09:39→22:15)
--- NOTE | 2018-02-28 10:09 | CONSULT ---
Admitting History and Physical - Primary Care Physician PCP: Anne Lopez - Admission History of Present Illness: 53F with MS c/b quadriplegia s/p trach/PEG, legally blind , neurogenic bladder s /p perera catheter, seizure d/o admitted with AMS. ID a/p toxic metabolic encephalopathy- improved probable RLL pneumonia ?uti Last seen by me 02/26/17 With the following recommendations: Continue puree and honey thick for now, continued at home. Purchase Thick and Easy at [employer] for use with water and juice BUT NOT SUPPLEMENTS TODAY order Simply Thick on line which can thicken all liquids including supplements and soda with whisk. Trial Puree with extra gravy and honey thick on a tsp. Magic cup. Medication crushed and given in applesauce. Chin tucked to neutral or flexed, never extended 2 swallows per bite. Ask pt to phonate "ahhhh" and listen for clear vocal quality/no wetness Monitor tolerance/pulm status. Suggested swallowing tx at home via homecare, Tongue resistence exercises, laryngeal elevation, BOT, airway protection exercises,Tina. Pt's mother reports pt was advanced to reg food mashed up and thin liquids, and Ensure plus. She reported that pt coughed sometimes but was tolerating the diet. Dr. Rubens Landon changed Geetha's trach last week. History Source: Family Member, Medical Record Limitations to Obtaining History: Clinical Condition - Past Medical History TANK ERECTOR: Yes: Multiple Sclerosis (quadraplegia), Other (legally blind, trigeminal neuralgia -> baclofen pump) Cardiovascular: Yes: HTN, Hyperlipdemia Pulmonary: Yes: Pneumonia, Previously Intubated, Other Gastrointestinal: Yes: Constipation (chronic) Renal/: Yes: Neurogenic Bladder ( neurogenic bladder, chronic perera catheter) ...LMP: 06/07/12 Heme/Onc: Yes: Anemia Infectious Disease: Yes: Other (pneumonia, uti treated by urologist) Musculoskeletal: Yes: Other (Quadraplegia) Dermatology: Yes: Other (chronic decubitus followed by wound care) - Smoking History Smoking history: Never smoked Have you smoked in the past 12 months: No Aproximately how many cigarettes per day: 0 - Alcohol/Substance Use Hx Alcohol Use: No History of Substance Use: reports: None - Social History ADL: Support Services History of Recent Travel: No History - Admission Reason For Visit: URINARY TRACT INFECTION DEPENDENT ON VENTILATOR - Diagnostics X-ray: Report Reviewed - General Mental Status: Awake and Alert, Vague, Intermittently Confused (slow to respond and mouth words/follow commands. At times, no response.Other times able to mouth numbers, respond to simple questions with y/n head shake. Not at baseline) Attention: Distractible Head/Neck Control: Needs Assist - Hearing Hearing: Functional Speech Evaluation - Communication Primary Language: GREEK Oral Expression Ability: Yes: Non-Vocal (on ventilator, cuff inflated) - Speech Characteristics Articulation: Yes: Precise - Swallow Evaluation/Bedside Assessment Current Nutritional Intake: NPO, NG Tube Oral Secretions: Yes: WFL Dentition: Yes: Adequate Facial Symmetry at Rest: Symmetrical Lingual Speed of Movement: Reduced Laryngeal Movement: Unable to Palpate Recommendations - Speech Evaluation, Impression/Plan Impression: Pt well known to me from previous admission. Pt reported to be improving but not at baseline cognitively. Has NGT in place, on ventilator. Intermittently mouthing words. Articulation seems reduced in VOM and ROM. Distractible, slow to resond. - Dysphagia Impressions/Plan Swallowing Skills: Impaired Dysphagia Impressions: Risk of Aspiration, Ongoing Evaluation *Silent aspiration: cannot be R/O at bedside Recommendations: Other (continue NGT for now)
[2018-02-28] MEDS: MULTIVITAMINS (DAILY MVI) TABLET (FP) PO SCH (10:14)
[2018-02-28] MEDS: LORATADINE 10 MG TABLET PO SCH (10:15)
[2018-02-28] MEDS: FOLIC ACID 1 MG TABLET (FP) PO SCH (10:15)
[2018-02-28] MEDS: METOPROLOL TARTRATE 50 MG TABLET (FP) PO SCH ×2 (10:15→22:17)
[2018-02-28] MEDS: ASCORBIC ACID 500 MG TABLET (FP) PO SCH (10:15)
[2018-02-28] MEDS: SERTRALINE HCL 50 MG TABLET (FP) PO SCH (10:15)
--- NOTE | 2018-02-28 11:45 | PN ---
Progress Note (short form) - Note Progress Note: PULMONARY Vented, no fevers recorded. More awake today. Vital Signs Period Temp Pulse Resp BP Sys/Morillo Pulse Ox Last 24 Hr 97.8 F-98.2 F 54-101 14-20 129-164/66-93 99-100 Gen: vented, awake Heart: RRR Lung: decresed breath sounds at the bases Abd: soft, nontender Ext: no edema CBC, BMP 02/27/18 21:00 02/27/18 21:00 Active Medications Acetaminophen (Ofirmev Injection -) 1,000 mg IVPB Q6H PRN PRN Reason: FEVER Last Admin: 02/26/18 18:22 Dose: 1,000 mg Albuterol/Ipratropium (Duoneb -) 1 amp NEB RQID [facility] Last Admin: 02/28/18 07:25 Dose: 1 amp Ascorbic Acid (Vitamin C -) 500 mg PO DAILY [facility] Last Admin: 02/28/18 10:15 Dose: 500 mg Carbamazepine (Tegretol -) 100 mg PO TID [facility] Last Admin: 02/28/18 06:26 Dose: 100 mg Folic Acid (Folic Acid -) 1 mg PO DAILY [facility] Last Admin: 02/28/18 10:15 Dose: 1 mg Hydralazine HCl (Apresoline -) 50 mg PO TID [facility] Last Admin: 02/28/18 06:26 Dose: 50 mg Sodium Chloride (Normal Saline -) 1,000 mls @ 100 mls/hr IV ASDIR [facility] Last Admin: 02/27/18 11:12 Dose: 100 mls/hr Piperacillin Sod/Tazobactam (Sod 3.375 gm/ Dextrose) 50 mls @ 100 mls/hr IVPB Q8H-IV [facility]; Protocol Last Admin: 02/28/18 10:13 Dose: 100 mls/hr Vancomycin HCl (Vancomycin (Pre-Docked)) 1,000 mg in 250 mls @ 200 mls/hr IVPB Q24H [facility]; Protocol Last Admin: 02/27/18 13:55 Dose: 200 mls/hr Dextrose/Sodium Chloride (D5-Ns -) 1,000 mls @ 42 mls/hr IV ASDIR [facility] Stop: 02/28/18 23:59 Last Admin: 02/27/18 20:30 Dose: 42 mls/hr Levothyroxine Sodium (Synthroid -) 100 mcg PO DAILY@0700 [facility] Last Admin: 02/28/18 06:26 Dose: 100 mcg Loratadine (Claritin -) 10 mg PO DAILY [facility] Last Admin: 02/28/18 10:15 Dose: 10 mg Metoprolol Tartrate (Lopressor -) 50 mg PO BID [facility] Last Admin: 02/28/18 10:15 Dose: 50 mg Mirtazapine (Remeron -) 7.5 mg PO HS [facility] Last Admin: 02/27/18 21:56 Dose: 7.5 mg Multivitamins/Minerals/Vitamin C (Tab-A-Vit -) 1 tab PO DAILY [facility] Last Admin: 02/28/18 10:14 Dose: 1 tab Sertraline HCl (Zoloft -) 50 mg PO DAILY [facility] Last Admin: 02/28/18 10:15 Dose: 50 mg A/P Acute on Chronic Hypoxic and Hypercapneic Respiratory Failure Pneumonia UTI Sepsis Favor Right Atelectasis > Pneumonia Multiple Sclerosis Functional Quadriplegia - continue antibiotics per ID - f/u cultures - IVF - monitor urine output, creatinine - continue mechanical ventilation, volume assist control - taper Fio2 to keep Spo2 >90% - can try trach collar when mental status improved - enteral feeds - DVT/GI prophylaxis - can monitor on vent floor Problem List - Problems (1) Acute on chronic respiratory failure with hypoxia and hypercapnia Code(s): J96.21 - ACUTE AND CHRONIC RESPIRATORY FAILURE WITH HYPOXIA; J96.22 - ACUTE AND CHRONIC RESPIRATORY FAILURE WITH HYPERCAPNIA (2) Urinary tract infection Code(s): N39.0 - URINARY TRACT INFECTION, SITE NOT SPECIFIED Qualifiers: Urinary tract infection type: site unspecified Hematuria presence: with hematuria Qualified Code(s): N39.0 - Urinary tract infection, site not specified; R31.9 - Hematuria, unspecified (3) Sepsis Code(s): A41.9 - SEPSIS, UNSPECIFIED ORGANISM (4) Decubital ulcer Code(s): L89.90 - PRESSURE ULCER OF UNSPECIFIED SITE, UNSPECIFIED STAGE Qualifiers: Pressure injury location: unspecified location Pressure injury stage: unspecified pressure injury stage Qualified Code(s): L89.90 - Pressure ulcer of unspecified site, unspecified stage (5) Multiple sclerosis Code(s): G35 - MULTIPLE SCLEROSIS (6) Functional quadriplegia Code(s): R53.2 - FUNCTIONAL QUADRIPLEGIA
--- NOTE | 2018-02-28 11:56 | PN ---
Progress Note, Physician Chief Complaint: patient is on vent no fever per mother more alert today ng tube noted - Current Medication List Current Medications: Active Medications Acetaminophen (Ofirmev Injection -) 1,000 mg IVPB Q6H PRN PRN Reason: FEVER Last Admin: 02/26/18 18:22 Dose: 1,000 mg Albuterol/Ipratropium (Duoneb -) 1 amp NEB RQID [facility] Last Admin: 02/28/18 07:25 Dose: 1 amp Ascorbic Acid (Vitamin C -) 500 mg PO DAILY [facility] Last Admin: 02/28/18 10:15 Dose: 500 mg Carbamazepine (Tegretol -) 100 mg PO TID [facility] Last Admin: 02/28/18 06:26 Dose: 100 mg Folic Acid (Folic Acid -) 1 mg PO DAILY [facility] Last Admin: 02/28/18 10:15 Dose: 1 mg Hydralazine HCl (Apresoline -) 50 mg PO TID [facility] Last Admin: 02/28/18 06:26 Dose: 50 mg Sodium Chloride (Normal Saline -) 1,000 mls @ 100 mls/hr IV ASDIR [facility] Last Admin: 02/27/18 11:12 Dose: 100 mls/hr Piperacillin Sod/Tazobactam (Sod 3.375 gm/ Dextrose) 50 mls @ 100 mls/hr IVPB Q8H-IV [facility]; Protocol Last Admin: 02/28/18 10:13 Dose: 100 mls/hr Vancomycin HCl (Vancomycin (Pre-Docked)) 1,000 mg in 250 mls @ 200 mls/hr IVPB Q24H [facility]; Protocol Last Admin: 02/27/18 13:55 Dose: 200 mls/hr Dextrose/Sodium Chloride (D5-Ns -) 1,000 mls @ 42 mls/hr IV ASDIR [facility] Stop: 02/28/18 23:59 Last Admin: 02/27/18 20:30 Dose: 42 mls/hr Levothyroxine Sodium (Synthroid -) 100 mcg PO DAILY@0700 [facility] Last Admin: 02/28/18 06:26 Dose: 100 mcg Loratadine (Claritin -) 10 mg PO DAILY [facility] Last Admin: 02/28/18 10:15 Dose: 10 mg Metoprolol Tartrate (Lopressor -) 50 mg PO BID [facility] Last Admin: 12/24/18 10:15 Dose: 50 mg Mirtazapine (Remeron -) 7.5 mg PO [facility] Last Admin: 02/27/18 21:56 Dose: 7.5 mg Multivitamins/Minerals/Vitamin C (Tab-A-Vit -) 1 tab PO DAILY [facility] Last Admin: 02/28/18 10:14 Dose: 1 tab Sertraline HCl (Zoloft -) 50 mg PO DAILY [facility] Last Admin: 02/28/18 10:15 Dose: 50 mg - Objective Vital Signs: Vital Signs Temperature 97.8 F 02/28/18 06:00 Pulse Rate 61 02/28/18 09:47 Respiratory Rate 14 02/28/18 09:20 Blood Pressure 154/87 02/28/18 08:00 O2 Sat by Pulse Oximetry (%) 100 02/28/18 09:47 Constitutional: Yes: Calm Neck: Yes: Other (trach) Cardiovascular: Yes: S1, S2 Respiratory: Yes: Mechanically Ventilated Gastrointestinal: Yes: Normal Bowel Sounds, Soft Genitourinary: Yes: Perera Present Neurological: Yes: Pre-Existing Deficit Labs: CBC, BMP 02/27/18 21:00 02/27/18 21:00 INR, PTT INR 1.23 (0.83-1.09) H 02/26/18 08:36 Fibrinogen > 500.0 mg/dL (238-498) H 02/27/18 05:08 Problem List - Problems (1) Depression Assessment/Plan: remeron and zoloft Code(s): F32.9 - MAJOR DEPRESSIVE DISORDER, SINGLE EPISODE, UNSPECIFIED (2) Altered mental status Assessment/Plan: toxic metabolic encephalopathy most likely secondary to UTI chronic indwelling perera iv abx Code(s): R41.82 - ALTERED MENTAL STATUS, UNSPECIFIED (3) Decubital ulcer Assessment/Plan: frequent turn and position dr jeffries consult vancomycin Code(s): L89.90 - PRESSURE ULCER OF UNSPECIFIED SITE, UNSPECIFIED STAGE Qualifiers: Pressure injury location: unspecified location Pressure injury stage: unspecified pressure injury stage Qualified Code(s): L89.90 - Pressure ulcer of unspecified site, unspecified stage (4) Anemia Assessment/Plan: h/h note iron panel show low iron sats on folic acid Code(s): D64.9 - ANEMIA, UNSPECIFIED Qualifiers: Other causes of anemia: other cause, not classified (5) Hypothyroid Assessment/Plan: synthroid Code(s): E03.9 - HYPOTHYROIDISM, UNSPECIFIED (6) HTN (hypertension) Assessment/Plan: continue current medications Code(s): I10 - ESSENTIAL (PRIMARY) HYPERTENSION (7) Hx of multiple sclerosis Assessment/Plan: vent support enteral feeds via ng tube Code(s): Z86.69 - PERSONAL HISTORY OF DIS OF THE NERVOUS SYS AND SENSE ORGANS
[2018-02-28] MEDS: VANCOMYCIN 1 GRAM (PRE-DOCKED) 1,000 MG/250 ML BAG IVPB SCH (13:45)
[2018-02-28] MEDS: SODIUM CHLORIDE 1,000 ML IV SCH (17:59)
[2018-02-28] MEDS: DEXTROSE 5%-NORMAL SALINE 1,000 ML IV SCH (22:16)
[2018-02-28] MEDS: MIRTAZAPINE 15 MG TABLET (FP) PO SCH (22:17)
[2018-03-01] MEDS ORDERED: PIPERACILLIN/TAZOBACTAM 3.375 GM VIAL IVPB ONE ×3 (01:14→16:19)
[2018-03-01] MEDS ORDERED: DEXTROSE 5%-WATER - 50 ML IVPB ONE ×3 (01:14→16:19)
[2018-03-01] MEDS: PIPERACILLIN/TAZOB 3.375 GM 3.375 GM in DEXTROSE 5%-WATER - 50 ML IVPB SCH ×3 (01:44→17:13)
[2018-03-01] MEDS: hydrALAZINE HCL 50 MG TABLET (FP) PO SCH ×3 (05:48→22:17)
[2018-03-01] MEDS: carBAMazepine 100 MG TAB.CHEW PO SCH ×3 (05:48→23:04)
[2018-03-01] MEDS: LEVOTHYROXINE NA 100 MCG TABLET (FP) PO SCH (06:21)
--- NOTE | 2018-03-01 08:43 | PN ---
Progress Note (short form) - Note Progress Note: awake, on vent via trach Vital Signs Period Temp Pulse Resp BP Sys/Morillo Pulse Ox Last 24 Hr 98 F-98.8 F 59-83 14-21 114-159/56-81 98-100 trach to vent cor-rrr lungs decreased bs at bases abd soft,nt ext no edema CBC, BMP 02/27/18 21:00 02/27/18 21:00 Microbiology 02/28/18 12:45 Sputum - Endotrachea Suction/Ventilator Sputum Culture - Preliminary Pending Organism 02/25/18 20:31 Blood - Peripheral Venous Blood Culture - Preliminary NO GROWTH OBTAINED AFTER 72 HOURS, INCUBATION TO CONTINUE FOR 2 DAYS. 02/25/18 20:31 Blood - Peripheral Venous Blood Culture - Preliminary NO GROWTH OBTAINED AFTER 72 HOURS, INCUBATION TO CONTINUE FOR 2 DAYS. 02/28/18 12:45 Urine For Antigen Detection Legionella Antigen - Final 02/28/18 12:45 Urine For Antigen Detection Streptococcus pneumoniae Antigen (M - Final 02/27/18 11:45 Urine - Urine Raza Urine Culture - Final Contaminated: Please Repeat 02/25/18 21:19 Urine - Urine Raza Urine Culture - Final Contaminated: Please Repeat Current Medications Acetaminophen (Ofirmev Injection -) 1,000 mg IVPB Q6H PRN PRN Reason: FEVER Last Admin: 03/01/18 09:44 Dose: 1,000 mg Albuterol/Ipratropium (Duoneb -) 1 amp NEB RQID [facility] Last Admin: 03/01/18 08:59 Dose: 1 amp Ascorbic Acid (Vitamin C -) 500 mg PO DAILY [facility] Last Admin: 03/01/18 09:20 Dose: 500 mg Carbamazepine (Tegretol -) 100 mg PO TID [facility] Last Admin: 03/01/18 05:48 Dose: 100 mg Folic Acid (Folic Acid -) 1 mg PO DAILY [facility] Last Admin: 03/01/18 09:20 Dose: 1 mg Hydralazine HCl (Apresoline -) 50 mg PO TID [facility] Last Admin: 03/01/18 05:48 Dose: 50 mg Sodium Chloride (Normal Saline -) 1,000 mls @ 100 mls/hr IV ASDIR [facility] Last Admin: 02/28/18 17:59 Dose: Not Given Piperacillin Sod/Tazobactam (Sod 3.375 gm/ Dextrose) 50 mls @ 100 mls/hr IVPB Q8H-IV [facility]; Protocol Last Admin: 03/01/18 09:20 Dose: 100 mls/hr Vancomycin HCl (Vancomycin (Pre-Docked)) 1,000 mg in 250 mls @ 200 mls/hr IVPB Q24H [facility]; Protocol Last Admin: 02/28/18 13:45 Dose: 200 mls/hr Levothyroxine Sodium (Synthroid -) 100 mcg PO DAILY@0700 [facility] Last Admin: 03/01/18 06:21 Dose: 100 mcg Loratadine (Claritin -) 10 mg PO DAILY [facility] Last Admin: 03/01/18 09:20 Dose: 10 mg Metoprolol Tartrate (Lopressor -) 50 mg PO BID [facility] Last Admin: 03/01/18 09:20 Dose: 50 mg Mirtazapine (Remeron -) 7.5 mg PO HS [facility] Last Admin: 02/28/18 22:17 Dose: 7.5 mg Multivitamins/Minerals/Vitamin C (Tab-A-Vit -) 1 tab PO DAILY [facility] Last Admin: 03/01/18 09:20 Dose: 1 tab Sertraline HCl (Zoloft -) 50 mg PO DAILY [facility] Last Admin: 03/01/18 09:20 Dose: 50 mg a/p toxic metabolic encephalopathy- improved probable RLL pneumonia ?uti chronic respiratory failure Multiple Sclerosis would continue vanco/zosyn f/u cultures
[2018-03-01] MEDS: ALBUTEROL SO4 2.5/IPRATROPIUM 0.5 INH SOL 3 ML VIAL.NEB. NEB SCH ×4 (08:59→19:40)
[2018-03-01] MEDS: MULTIVITAMINS (DAILY MVI) TABLET (FP) PO SCH (09:20)
[2018-03-01] MEDS: LORATADINE 10 MG TABLET PO SCH (09:20)
[2018-03-01] MEDS: FOLIC ACID 1 MG TABLET (FP) PO SCH (09:20)
[2018-03-01] MEDS: SERTRALINE HCL 50 MG TABLET (FP) PO SCH (09:20)
[2018-03-01] MEDS: ASCORBIC ACID 500 MG TABLET (FP) PO SCH (09:20)
[2018-03-01] MEDS: METOPROLOL TARTRATE 50 MG TABLET (FP) PO SCH ×2 (09:20→22:17)
[2018-03-01] MEDS: ACETAMINOPHEN 1000 MG/100 ML VIAL (NON FORMULARY) IVPB PRN (09:44)
[2018-03-01] MEDS: SODIUM CHLORIDE 1,000 ML IV SCH (10:00)
--- NOTE | 2018-03-01 10:33 | PN ---
Progress Note (short form) - Note Progress Note: PULMONARY Vented, low grade temp this AM. More awake today per family at bedside. Vital Signs Period Temp Pulse Resp BP Sys/Morillo Pulse Ox Last 24 Hr 98 F-98.8 F 59-83 14-21 114-159/56-81 98-100 Intake & Output 02/26/18 02/27/1818 03/01/18 23:59 23:59 23:59 23:59 Intake Total 1400 1266 790 Output Total 150 1500 1350 400 Balance -150 -100 -84 390 Weight 62.5 kg 61.745 kg 61.745 kg Gen: vented, awake Heart: RRR Lung: decresed breath sounds at the bases Abd: soft, nontender Ext: no edema CBC, BMP 02/27/18 21:00 02/27/18 21:00 Active Medications Acetaminophen (Ofirmev Injection -) 1,000 mg IVPB Q6H PRN PRN Reason: FEVER Last Admin: 03/01/18 09:44 Dose: 1,000 mg Albuterol/Ipratropium (Duoneb -) 1 amp NEB RQID [facility] Last Admin: 03/01/18 08:59 Dose: 1 amp Ascorbic Acid (Vitamin C -) 500 mg PO DAILY [facility] Last Admin: 03/01/18 09:20 Dose: 500 mg Carbamazepine (Tegretol -) 100 mg PO TID [facility] Last Admin: 03/01/18 05:48 Dose: 100 mg Folic Acid (Folic Acid -) 1 mg PO DAILY [facility] Last Admin: 03/01/18 09:20 Dose: 1 mg Hydralazine HCl (Apresoline -) 50 mg PO TID [facility] Last Admin: 03/01/18 05:48 Dose: 50 mg Sodium Chloride (Normal Saline -) 1,000 mls @ 100 mls/hr IV ASDIR [facility] Last Admin: 02/28/18 17:59 Dose: Not Given Piperacillin Sod/Tazobactam (Sod 3.375 gm/ Dextrose) 50 mls @ 100 mls/hr IVPB Q8H-IV [facility]; Protocol Last Admin: 03/01/18 09:20 Dose: 100 mls/hr Vancomycin HCl (Vancomycin (Pre-Docked)) 1,000 mg in 250 mls @ 200 mls/hr IVPB Q24H [facility]; Protocol Last Admin: 02/28/18 13:45 Dose: 200 mls/hr Levothyroxine Sodium (Synthroid -) 100 mcg PO DAILY@0700 [facility] Last Admin: 03/01/18 06:21 Dose: 100 mcg Loratadine (Claritin -) 10 mg PO DAILY [facility] Last Admin: 03/01/18 09:20 Dose: 10 mg Metoprolol Tartrate (Lopressor -) 50 mg PO BID [facility] Last Admin: 03/01/18 09:20 Dose: 50 mg Mirtazapine (Remeron -) 7.5 mg PO HS [facility] Last Admin: 02/28/18 22:17 Dose: 7.5 mg Multivitamins/Minerals/Vitamin C (Tab-A-Vit -) 1 tab PO DAILY [facility] Last Admin: 03/01/18 09:20 Dose: 1 tab Sertraline HCl (Zoloft -) 50 mg PO DAILY [facility] Last Admin: 03/01/18 09:20 Dose: 50 mg A/P Acute on Chronic Hypoxic and Hypercapneic Respiratory Failure Pneumonia UTI Sepsis Multiple Sclerosis Functional Quadriplegia - continue antibiotics per ID - f/u cultures - monitor urine output, creatinine - placed on CPAP/PS - taper Fio2 to keep Spo2 >90% - can try trach collar when mental status improved - enteral feeds - DVT/GI prophylaxis - can monitor on vent floor Problem List - Problems (1) Acute on chronic respiratory failure with hypoxia and hypercapnia Code(s): J96.21 - ACUTE AND CHRONIC RESPIRATORY FAILURE WITH HYPOXIA; J96.22 - ACUTE AND CHRONIC RESPIRATORY FAILURE WITH HYPERCAPNIA (2) Urinary tract infection Code(s): N39.0 - URINARY TRACT INFECTION, SITE NOT SPECIFIED Qualifiers: Urinary tract infection type: site unspecified Hematuria presence: with hematuria Qualified Code(s): N39.0 - Urinary tract infection, site not specified; R31.9 - Hematuria, unspecified (3) Sepsis Code(s): A41.9 - SEPSIS, UNSPECIFIED ORGANISM (4) Decubital ulcer Code(s): L89.90 - PRESSURE ULCER OF UNSPECIFIED SITE, UNSPECIFIED STAGE Qualifiers: Pressure injury location: unspecified location Pressure injury stage: unspecified pressure injury stage Qualified Code(s): L89.90 - Pressure ulcer of unspecified site, unspecified stage (5) Multiple sclerosis Code(s): G35 - MULTIPLE SCLEROSIS (6) Functional quadriplegia Code(s): R53.2 - FUNCTIONAL QUADRIPLEGIA
[2018-03-01] MEDS ORDERED: PT OWN MED DRAWER 7, Y5N ONE ×3 (13:38→23:06)
--- NOTE | 2018-03-01 13:55 | PN ---
Progress Note (short form) - Note Progress Note: on vent, appears in no acute distress. discussed with mother and nurse at bedside. no signs of bruising or bleeding. Temperature 98.8 F 03/01/18 06:00 Pulse Rate 84 03/01/18 12:00 Respiratory Rate 16 03/01/18 12:00 Blood Pressure 158/78 03/01/18 12:00 O2 Sat by Pulse Oximetry (%) 98 03/01/18 09:01 PE immobile in bed, opens eyes to sound and tactile stimuli trach collar placed to vent no oral thrush coarse breath sounds on vent s1, s2, no mrg abd soft nontender, PEG in place trace edema b/l lower legs perera in place CBCD WBC 6.0 K/mm3 (4.0-10.0) 02/27/18 21:00 RBC 2.59 M/mm3 (3.60-5.2) L 02/27/18 21:00 Hgb 8.2 GM/dL (10.7-15.3) L 02/27/18 21:00 Hct 25.0 % (32.4-45.2) L 02/27/18 21:00 MCV 96.4 fl (80-96) H 02/27/18 21:00 MCHC 32.8 g/dl (32.0-36.0) 02/27/18 21:00 RDW 15.4 % (11.6-15.6) 02/27/18 21:00 Plt Count 82 K/MM3 (134-434) L 02/27/18 21:00 MPV 8.2 fl (7.5-11.1) 02/27/18 21:00 CMP Sodium 135 mmol/L (136-145) L 02/27/18 21:00 Potassium 3.9 mmol/L (3.5-5.1) 02/27/18 21:00 Chloride 100 mmol/L (98-107) 02/27/18 21:00 Carbon Dioxide 26 mmol/L (21-32) 02/27/18 21:00 Anion Gap 8 MMOL/L (8-16) 02/27/18 21:00 BUN 15 mg/dL (7-18) 02/27/18 21:00 Creatinine 0.6 mg/dL (0.55-1.3) 02/27/18 21:00 Creat Clearance w eGFR > 60 (>60) 02/27/18 21:00 Calcium 8.5 mg/dL (8.5-10.1) 02/27/18 21:00 Total Bilirubin 0.4 mg/dL (0.2-1) 02/27/18 21:00 AST 26 U/L (15-37) 02/27/18 21:00 ALT 29 U/L (13-61) 02/27/18 21:00 Alkaline Phosphatase 301 U/L (45-117) H 02/27/18 21:00 Total Protein 6.1 g/dl (6.4-8.2) L 02/27/18 21:00 Albumin 2.0 g/dl (3.4-5.0) L 02/27/18 21:00 Active Medications Acetaminophen (Ofirmev Injection -) 1,000 mg IVPB Q6H PRN PRN Reason: FEVER Albuterol/Ipratropium (Duoneb -) 1 amp NEB RQID [facility] Last Admin: 03/01/18 12:50 Dose: 1 amp Ascorbic Acid (Vitamin C -) 500 mg PO DAILY [facility] Carbamazepine (Tegretol -) 100 mg PO TID [facility] Last Admin: 03/01/18 13:39 Dose: 100 mg Folic Acid (Folic Acid -) 1 mg PO DAILY [facility] Hydralazine HCl (Apresoline -) 50 mg PO TID [facility] Last Admin: 03/01/18 13:39 Dose: 50 mg Sodium Chloride (Normal Saline -) 1,000 mls @ 100 mls/hr IV ASDIR [facility] Last Admin: 03/01/18 10:00 Dose: 100 mls/hr Vancomycin HCl (Vancomycin (Pre-Docked)) 1,000 mg in 250 mls @ 200 mls/hr IVPB DAILY@1400 [facility]; Protocol Last Admin: 03/01/18 13:39 Dose: 200 mls/hr Piperacillin Sod/Tazobactam (Sod 3.375 gm/ Dextrose) 50 mls @ 100 mls/hr IVPB Q8H-IV [facility]; Protocol Levothyroxine Sodium (Synthroid -) 100 mcg PO DAILY@0700 [facility] Loratadine (Claritin -) 10 mg PO DAILY [facility] Metoprolol Tartrate (Lopressor -) 50 mg PO BID [facility] Mirtazapine (Remeron -) 7.5 mg PO HS [facility] Multivitamins/Minerals/Vitamin C (Tab-A-Vit -) 1 tab PO DAILY [facility] Sertraline HCl (Zoloft -) 50 mg PO DAILY [facility] Laboratory Tests 08/24/14 03/29/16 02/12/17 09:00 05:35 09:36 PT Mixing Study Pending PTT Patient/Cntrl Mix PTT Normal Plasma Pre Fibrinogen LA PTT Baseline dRVVT Confirm Interp dRVVT Mixing Study IgG IgA IgM OSEI Screen Negative Free Refugio LC, Quant 89.26 H Free Lambda LC, Quant 53.62 H Free Refugio/Lambda Ratio 1.66 H 02/17/17 02/20/17 02/20/17 12:55 07:25 07:25 PT with INR 14.20 H INR 1.26 H PTT (Actin FS) 32.0 Saline-Adjusted PTT PT Mixing Study PTT Patient/Cntrl Mix PTT Normal Plasma Pre Fibrinogen LA PTT Baseline 49.6 dRVVT Confirm Interp 48.9 H dRVVT Mixing Study 42.3 IgG 1041 IgA 234 IgM 263 H OSEI Screen Free Refugio LC, Quant Free Lambda LC, Quant Free Refugio/Lambda Ratio 02/20/17 02/27/18 02/27/18 07:25 05:08 05:08 PT with INR INR PTT (Actin FS) 39.6 H Saline-Adjusted PTT 37.5 PT Mixing Study PTT Patient/Cntrl Mix TNP PTT Normal Plasma Pre 25.7 Fibrinogen > 500.0 H LA PTT Baseline dRVVT Confirm Interp dRVVT Mixing Study IgG IgA IgM OSEI Screen Free Refugio LC, Quant Free Lambda LC, Quant Free Refugio/Lambda Ratio 02/28/18 05:35 PT with INR INR PTT (Actin FS) Saline-Adjusted PTT Pending PT Mixing Study PTT Patient/Cntrl Mix Pending PTT Normal Plasma Pre Pending Fibrinogen LA PTT Baseline dRVVT Confirm Interp dRVVT Mixing Study IgG IgA IgM OSEI Screen Free Refugio LC, Quant Free Lambda LC, Quant Free Refugio/Lambda Ratio Laboratory Tests 02/28/16 02/20/17 02/27/18 00:23 07:25 05:08 D-Dimer 568 H Fibrinogen LA PTT Baseline 49.6 dRVVT Confirm Interp 48.9 H dRVVT Mixing Study 42.3 Iron TIBC Iron Saturation Ferritin 940.9 H Vitamin B12 3510 H Serum Folate 26 H TSH 02/27/18 02/27/18 03/01/18 05:08 05:08 05:30 D-Dimer Fibrinogen > 500.0 H LA PTT Baseline dRVVT Confirm Interp dRVVT Mixing Study Iron 28 TIBC 207 L Iron Saturation 14 L Ferritin Vitamin B12 Serum Folate TSH 3.57 53F with MS with quadriplegia s/p trach/PEG, legally blind, neurogenic bladder s /p perera catheter with hx of recurrent MDR UTI's, seizure d/o admitted with AMS and being treated for UTI. Hematology consulted for anemia. Pt with chronic anemia since 2012, with baseline Hgb ~9-10. Plt counts have been variable with occasional mild thrombocytopenia. Last was 387 on 01/26/18. Problem list: Anemia, mildly macrocytic Thrombocytopenia UTI with MDR organism MS with quadraplegia s/p trach/PEG/perera catheter Seizure d/o hyponatremia A/P no cbc/chem to review today, last counts on 02/27 stable. iron studies with elevated ferritin, nl iron, low TIBC and low iron sat, TSH nl, likely anemia of chronic disease repeat pending mixing study to evaluate for factor deficiencies vs factor inhibitors causing prolonged PTT, pt had mixing study and lupus anticoagulant PTT tested 02/2017, will need to obtain interpretation report from lab chart review reveals pt has a hx of 3 IgG Refugio monoclonal protein bands with A/ G ratio 0.6 in 2017, trended down from 0.7 from 2014, could be from her progressing MS
[2018-03-01] MEDS ORDERED: VANCOMYCIN 1 GRAM (PRE-DOCKED) 1,000 MG/250 ML BAG IVPB SCH (14:00)
--- NOTE | 2018-03-01 14:21 | PN ---
Progress Note, Physician Chief Complaint: AWAKE MORE ALERT MOM IS BEDSIDE ON 02 SUPPORT CHART AND NOTES REVIEWED - Current Medication List Current Medications: Active Medications Acetaminophen (Ofirmev Injection -) 1,000 mg IVPB Q6H PRN PRN Reason: FEVER Albuterol/Ipratropium (Duoneb -) 1 amp NEB RQID [facility] Last Admin: 03/01/18 12:50 Dose: 1 amp Ascorbic Acid (Vitamin C -) 500 mg PO DAILY [facility] Carbamazepine (Tegretol -) 100 mg PO TID [facility] Last Admin: 03/01/18 13:39 Dose: 100 mg Folic Acid (Folic Acid -) 1 mg PO DAILY [facility] Hydralazine HCl (Apresoline -) 50 mg PO TID [facility] Last Admin: 03/01/18 13:39 Dose: 50 mg Sodium Chloride (Normal Saline -) 1,000 mls @ 100 mls/hr IV ASDIR [facility] Last Admin: 03/01/18 10:00 Dose: 100 mls/hr Vancomycin HCl (Vancomycin (Pre-Docked)) 1,000 mg in 250 mls @ 200 mls/hr IVPB DAILY@1400 [facility]; Protocol Last Admin: 03/01/18 13:39 Dose: 200 mls/hr Piperacillin Sod/Tazobactam (Sod 3.375 gm/ Dextrose) 50 mls @ 100 mls/hr IVPB Q8H-IV [facility]; Protocol Levothyroxine Sodium (Synthroid -) 100 mcg PO DAILY@0700 [facility] Loratadine (Claritin -) 10 mg PO DAILY [facility] Metoprolol Tartrate (Lopressor -) 50 mg PO BID [facility] Mirtazapine (Remeron -) 7.5 mg PO HS [facility] Multivitamins/Minerals/Vitamin C (Tab-A-Vit -) 1 tab PO DAILY [facility] Sertraline HCl (Zoloft -) 50 mg PO DAILY [facility] - Objective Vital Signs: Vital Signs Temperature 98.8 F 03/01/18 06:00 Pulse Rate 84 03/01/18 12:00 Respiratory Rate 16 03/01/18 12:00 Blood Pressure 158/78 03/01/18 12:00 O2 Sat by Pulse Oximetry (%) 98 03/01/18 09:01 Constitutional: Yes: Mild Distress Eyes: Yes: Other Neck: Yes: Other (TRACHEOSTOMY) Cardiovascular: Yes: Regular Rate and Rhythm Respiratory: Yes: Cough, Poor Air Entry, Other Gastrointestinal: Yes: Soft Genitourinary: Yes: Incontinence Musculoskeletal: Yes: Muscle Weakness Extremities: Yes: Other Integumentary: Yes: Rash, Venous Stasis Changes Wound/Incision: Yes: Open to air Neurological: Yes: Loss of Sensation, Numbness, Paresthesia, Pre-Existing Deficit, Weakness ...Motor Strength: LUE, LLE, RUE, RLE Psychiatric: Yes: Other Labs: CBC, BMP 02/27/18 21:00 02/27/18 21:00 INR, PTT INR 1.23 (0.83-1.09) H 02/26/18 08:36 Fibrinogen > 500.0 mg/dL (238-498) H 02/27/18 05:08 Problem List - Problems (1) Acute on chronic respiratory failure with hypoxia and hypercapnia Code(s): J96.21 - ACUTE AND CHRONIC RESPIRATORY FAILURE WITH HYPOXIA; J96.22 - ACUTE AND CHRONIC RESPIRATORY FAILURE WITH HYPERCAPNIA (2) Decubital ulcer Code(s): L89.90 - PRESSURE ULCER OF UNSPECIFIED SITE, UNSPECIFIED STAGE Qualifiers: Pressure injury location: unspecified location Pressure injury stage: unspecified pressure injury stage Qualified Code(s): L89.90 - Pressure ulcer of unspecified site, unspecified stage (3) Depression Code(s): F32.9 - MAJOR DEPRESSIVE DISORDER, SINGLE EPISODE, UNSPECIFIED (4) Presence of intrathecal baclofen pump Code(s): Z98.89 - OTHER SPECIFIED POSTPROCEDURAL STATES * DO NOT USE * (5) Sacral decubitus ulcer, stage IV Code(s): L89.154 - PRESSURE ULCER OF SACRAL REGION, STAGE 4 (6) Urinary tract infection Code(s): N39.0 - URINARY TRACT INFECTION, SITE NOT SPECIFIED Qualifiers: Urinary tract infection type: site unspecified Hematuria presence: with hematuria Qualified Code(s): N39.0 - Urinary tract infection, site not specified; R31.9 - Hematuria, unspecified (7) Adrenal insufficiency Code(s): E27.40 - UNSPECIFIED ADRENOCORTICAL INSUFFICIENCY (8) Altered mental status Code(s): R41.82 - ALTERED MENTAL STATUS, UNSPECIFIED (9) Chronic hypercapnic respiratory failure Code(s): J96.12 - CHRONIC RESPIRATORY FAILURE WITH HYPERCAPNIA (10) Functional quadriplegia Code(s): R53.2 - FUNCTIONAL QUADRIPLEGIA (11) Multiple sclerosis Code(s): G35 - MULTIPLE SCLEROSIS (12) Muscle spasticity Code(s): M62.838 - OTHER MUSCLE SPASM Assessment/Plan IN ICU IV ABX RESP SUPPORT PULM/ID F/U APPRECIATED MS NO ACUTE CHANGES CONT CURRENT MEDS MAY NEED PICC LINE WITH IV ABX [facility]
[2018-03-01] MEDS: MIRTAZAPINE 15 MG TABLET (FP) PO SCH (22:17)
[2018-03-02] MEDS ORDERED: PIPERACILLIN/TAZOBACTAM 3.375 GM VIAL IVPB ONE ×3 (02:13→17:25)
[2018-03-02] MEDS ORDERED: DEXTROSE 5%-WATER - 50 ML IVPB ONE ×3 (02:13→17:25)
[2018-03-02] MEDS: PIPERACILLIN/TAZOB 3.375 GM 3.375 GM in DEXTROSE 5%-WATER - 50 ML IVPB SCH ×3 (02:20→17:39)
[2018-03-02] MEDS ORDERED: PT OWN MED DRAWER 7, Y5N ONE ×2 (06:13→16:26)
[2018-03-02 06:15] LABS: HEMATOCRIT 25.9 % (32.4-45.2); HEMOGLOBIN 8.4 GM/dL (10.7-15.3); MCH 31.4 pg (25.7-33.7); MCHC 32.6 g/dl (32.0-36.0); MEAN CELL VOLUME 96.4 fl (80-96); MEAN PLT VOLUME 8.7 fl (7.5-11.1); PLATELET COUNT 118 K/MM3 (134-434); RBC 2.68 M/mm3 (3.60-5.2); RDW 15.1 % (11.6-15.6); WHITE BLOOD COUNT 9.1 K/mm3 (4.0-10.0)
[2018-03-02] MEDS: LEVOTHYROXINE NA 100 MCG TABLET (FP) PO SCH (06:16)
[2018-03-02] MEDS: hydrALAZINE HCL 50 MG TABLET (FP) PO SCH ×3 (06:16→22:51)
[2018-03-02] MEDS: carBAMazepine 100 MG TAB.CHEW PO SCH ×3 (06:16→22:51)
[2018-03-02 07:00] LABS: ANION GAP 5 MMOL/L (8-16); BLOOD UREA NITROGEN 16 mg/dL (7-18); CALCIUM 8.6 mg/dL (8.5-10.1); CHLORIDE 103 mmol/L (98-107); CO2 32 mmol/L (21-32); CREATININE 0.5 mg/dL (0.55-1.3); GLUCOSE,RANDOM 98 mg/dL (74-106); POTASSIUM 3.8 mmol/L (3.5-5.1); SODIUM 140 mmol/L (136-145)
[2018-03-02] MEDS: ALBUTEROL SO4 2.5/IPRATROPIUM 0.5 INH SOL 3 ML VIAL.NEB. NEB SCH ×3 (07:55→21:15)
[2018-03-02] MEDS: METOPROLOL TARTRATE 50 MG TABLET (FP) PO SCH ×2 (09:35→22:51)
[2018-03-02] MEDS: MULTIVITAMINS (DAILY MVI) TABLET (FP) PO SCH (09:36)
[2018-03-02] MEDS: FOLIC ACID 1 MG TABLET (FP) PO SCH (09:36)
[2018-03-02] MEDS: ASCORBIC ACID 500 MG TABLET (FP) PO SCH (09:36)
[2018-03-02] MEDS: SERTRALINE HCL 50 MG TABLET (FP) PO SCH (09:36)
[2018-03-02] MEDS: LORATADINE 10 MG TABLET PO SCH (09:36)
--- NOTE | 2018-03-02 11:00 | PN ---
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 Tolerated CPAP yesterday. Still with NGT, on vent. Pending Critical care team review regarding PMV/PO assessment, when medically appropriate. Pt more alert and mouthing words.
--- NOTE | 2018-03-02 11:23 | PN ---
Progress Note, Physician History of Present Illness: Awake, more alert Breathing slightly labored Low grade temp Urine c/s contaminated Sputum c/s mixed - Current Medication List Current Medications: Active Medications Acetaminophen (Ofirmev Injection -) 1,000 mg IVPB Q6H PRN PRN Reason: FEVER Albuterol/Ipratropium (Duoneb -) 1 amp NEB RQID [facility] Last Admin: 03/02/18 07:55 Dose: 1 amp Ascorbic Acid (Vitamin C -) 500 mg PO DAILY [facility] Last Admin: 03/02/18 09:36 Dose: 500 mg Carbamazepine (Tegretol -) 100 mg PO TID [facility] Last Admin: 03/02/18 06:16 Dose: 100 mg Folic Acid (Folic Acid -) 1 mg PO DAILY [facility] Last Admin: 03/02/18 09:36 Dose: 1 mg Hydralazine HCl (Apresoline -) 50 mg PO TID [facility] Last Admin: 03/02/18 06:16 Dose: 50 mg Sodium Chloride (Normal Saline -) 1,000 mls @ 100 mls/hr IV ASDIR [facility] Last Admin: 03/01/18 10:00 Dose: 100 mls/hr Vancomycin HCl (Vancomycin (Pre-Docked)) 1,000 mg in 250 mls @ 200 mls/hr IVPB DAILY@1400 [facility]; Protocol Last Admin: 03/01/18 13:39 Dose: 200 mls/hr Piperacillin Sod/Tazobactam (Sod 3.375 gm/ Dextrose) 50 mls @ 100 mls/hr IVPB Q8H-IV [facility]; Protocol Last Admin: 03/02/18 09:35 Dose: 100 mls/hr Levothyroxine Sodium (Synthroid -) 100 mcg PO DAILY@0700 [facility] Last Admin: 03/02/18 06:16 Dose: 100 mcg Loratadine (Claritin -) 10 mg PO DAILY [facility] Last Admin: 03/02/18 09:36 Dose: 10 mg Metoprolol Tartrate (Lopressor -) 50 mg PO BID [facility] Last Admin: 03/02/18 09:35 Dose: 50 mg Mirtazapine (Remeron -) 7.5 mg PO HS [facility] Last Admin: 03/01/18 22:17 Dose: 7.5 mg Multivitamins/Minerals/Vitamin C (Tab-A-Vit -) 1 tab PO DAILY [facility] Last Admin: 03/02/18 09:36 Dose: 1 tab Sertraline HCl (Zoloft -) 50 mg PO DAILY [facility] Last Admin: 03/02/18 09:36 Dose: 50 mg - Objective Vital Signs: Vital Signs Temperature 99 F 03/02/18 06:00 Pulse Rate 109 H 03/02/18 10:00 Respiratory Rate 19 03/02/18 10:00 Blood Pressure 159/94 03/02/18 10:00 O2 Sat by Pulse Oximetry (%) 99 03/01/18 22:00 Constitutional: Yes: No Distress Eyes: Yes: Conjunctiva Clear Cardiovascular: Yes: Regular Rate and Rhythm, S1, S2 Respiratory: Yes: Diminished Gastrointestinal: Yes: Normal Bowel Sounds, Soft. No: Tenderness Edema: LLE: 1+, RLE: 1+ Labs: CBC, BMP 03/02/18 05:30 03/02/18 05:30 INR, PTT INR 1.23 (0.83-1.09) H 02/26/18 08:36 Fibrinogen > 500.0 mg/dL (238-498) H 02/27/18 05:08 Assessment/Plan UTI R/O sepsis secondary to UTI Pneumonia Toxic metabolic encephalopathy- improved Neurogenic bladder Decubitus ulcer MS Continue zosyn D/C vancomycin
--- NOTE | 2018-03-02 11:28 | PN ---
Progress Note, Physician Chief Complaint: PATIENT SEEN IN ICU ASLEEP GURGLING BREATH SOUNDS - Current Medication List Current Medications: Active Medications Acetaminophen (Ofirmev Injection -) 1,000 mg IVPB Q6H PRN PRN Reason: FEVER Albuterol/Ipratropium (Duoneb -) 1 amp NEB RQID [facility] Last Admin: 03/02/18 07:55 Dose: 1 amp Ascorbic Acid (Vitamin C -) 500 mg PO DAILY [facility] Last Admin: 03/02/18 09:36 Dose: 500 mg Carbamazepine (Tegretol -) 100 mg PO TID [facility] Last Admin: 03/02/18 06:16 Dose: 100 mg Folic Acid (Folic Acid -) 1 mg PO DAILY [facility] Last Admin: 03/02/18 09:36 Dose: 1 mg Hydralazine HCl (Apresoline -) 50 mg PO TID [facility] Last Admin: 03/02/18 06:16 Dose: 50 mg Sodium Chloride (Normal Saline -) 1,000 mls @ 100 mls/hr IV ASDIR [facility] Last Admin: 03/01/18 10:00 Dose: 100 mls/hr Piperacillin Sod/Tazobactam (Sod 3.375 gm/ Dextrose) 50 mls @ 100 mls/hr IVPB Q8H-IV [facility]; Protocol Last Admin: 03/02/18 09:35 Dose: 100 mls/hr Levothyroxine Sodium (Synthroid -) 100 mcg PO DAILY@0700 [facility] Last Admin: 03/02/18 06:16 Dose: 100 mcg Loratadine (Claritin -) 10 mg PO DAILY [facility] Last Admin: 03/02/18 09:36 Dose: 10 mg Metoprolol Tartrate (Lopressor -) 50 mg PO BID [facility] Last Admin: 03/02/18 09:35 Dose: 50 mg Mirtazapine (Remeron -) 7.5 mg PO HS [facility] Last Admin: 03/01/18 22:17 Dose: 7.5 mg Multivitamins/Minerals/Vitamin C (Tab-A-Vit -) 1 tab PO DAILY [facility] Last Admin: 03/02/18 09:36 Dose: 1 tab Sertraline HCl (Zoloft -) 50 mg PO DAILY [facility] Last Admin: 03/02/18 09:36 Dose: 50 mg - Objective Vital Signs: Vital Signs Temperature 99 F 03/02/18 06:00 Pulse Rate 109 H 12/26/18 10:00 Respiratory Rate 19 03/02/18 10:00 Blood Pressure 159/94 03/02/18 10:00 O2 Sat by Pulse Oximetry (%) 99 03/01/18 22:00 Constitutional: Yes: Mild Distress Cardiovascular: Yes: Regular Rate and Rhythm Respiratory: Yes: Mechanically Ventilated, Rhonchi Gastrointestinal: Yes: Soft Genitourinary: Yes: Incontinence Musculoskeletal: Yes: Muscle Weakness Edema: No Integumentary: Yes: Erythema Wound/Incision: Yes: Dressing Dry and Intact Neurological: Yes: Pre-Existing Deficit, Weakness Labs: CBC, BMP 03/02/18 05:30 03/02/18 05:30 INR, PTT INR 1.23 (0.83-1.09) H 02/26/18 08:36 Fibrinogen > 500.0 mg/dL (238-498) H 02/27/18 05:08 Problem List - Problems (1) Acute on chronic respiratory failure with hypoxia and hypercapnia Code(s): J96.21 - ACUTE AND CHRONIC RESPIRATORY FAILURE WITH HYPOXIA; J96.22 - ACUTE AND CHRONIC RESPIRATORY FAILURE WITH HYPERCAPNIA (2) Decubital ulcer Code(s): L89.90 - PRESSURE ULCER OF UNSPECIFIED SITE, UNSPECIFIED STAGE Qualifiers: Pressure injury location: unspecified location Pressure injury stage: unspecified pressure injury stage Qualified Code(s): L89.90 - Pressure ulcer of unspecified site, unspecified stage (3) Depression Code(s): F32.9 - MAJOR DEPRESSIVE DISORDER, SINGLE EPISODE, UNSPECIFIED (4) Presence of intrathecal baclofen pump Code(s): Z98.89 - OTHER SPECIFIED POSTPROCEDURAL STATES * DO NOT USE * (5) Sacral decubitus ulcer, stage IV Code(s): L89.154 - PRESSURE ULCER OF SACRAL REGION, STAGE 4 (6) Urinary tract infection Code(s): N39.0 - URINARY TRACT INFECTION, SITE NOT SPECIFIED Qualifiers: Urinary tract infection type: site unspecified Hematuria presence: with hematuria Qualified Code(s): N39.0 - Urinary tract infection, site not specified; R31.9 - Hematuria, unspecified (7) Adrenal insufficiency Code(s): E27.40 - UNSPECIFIED ADRENOCORTICAL INSUFFICIENCY (8) Altered mental status Code(s): R41.82 - ALTERED MENTAL STATUS, UNSPECIFIED (9) Chronic hypercapnic respiratory failure Code(s): J96.12 - CHRONIC RESPIRATORY FAILURE WITH HYPERCAPNIA (10) Functional quadriplegia Code(s): R53.2 - FUNCTIONAL QUADRIPLEGIA (11) Multiple sclerosis Code(s): G35 - MULTIPLE SCLEROSIS (12) Muscle spasticity Code(s): M62.838 - OTHER MUSCLE SPASM Assessment/Plan IN ICU IV ABX RESP SUPPORT PULM/ID F/U APPRECIATED MS NO ACUTE CHANGES CONT CURRENT MEDS MAY NEED PICC LINE WITH IV ABX [facility] W[facility]ER
--- NOTE | 2018-03-02 12:11 | PN ---
Progress Note (short form) - Note Progress Note: PULMONARY Vented on volume assist control. Mental status continues to improve. Vital Signs Period Temp Pulse Resp BP Sys/Morillo Pulse Ox Last 24 Hr 99 F-99.4 F 77-117 14-27 94-159/58-94 98-99 Gen: vented, awake Heart: RRR Lung: decresed breath sounds at the bases Abd: soft, nontender Ext: no edema CBC, BMP 03/02/18 05:30 03/02/18 05:30 Active Medications Acetaminophen (Ofirmev Injection -) 1,000 mg IVPB Q6H PRN PRN Reason: FEVER Albuterol/Ipratropium (Duoneb -) 1 amp NEB RQID [facility] Last Admin: 03/02/18 11:05 Dose: 1 amp Ascorbic Acid (Vitamin C -) 500 mg PO DAILY [facility] Last Admin: 03/02/18 09:36 Dose: 500 mg Carbamazepine (Tegretol -) 100 mg PO TID [facility] Last Admin: 03/02/18 06:16 Dose: 100 mg Folic Acid (Folic Acid -) 1 mg PO DAILY [facility] Last Admin: 03/02/18 09:36 Dose: 1 mg Hydralazine HCl (Apresoline -) 50 mg PO TID [facility] Last Admin: 03/02/18 06:16 Dose: 50 mg Sodium Chloride (Normal Saline -) 1,000 mls @ 100 mls/hr IV ASDIR [facility] Last Admin: 03/01/18 10:00 Dose: 100 mls/hr Piperacillin Sod/Tazobactam (Sod 3.375 gm/ Dextrose) 50 mls @ 100 mls/hr IVPB Q8H-IV [facility]; Protocol Last Admin: 03/02/18 09:35 Dose: 100 mls/hr Levothyroxine Sodium (Synthroid -) 100 mcg PO DAILY@0700 [facility] Last Admin: 03/02/18 06:16 Dose: 100 mcg Loratadine (Claritin -) 10 mg PO DAILY [facility] Last Admin: 03/02/18 09:36 Dose: 10 mg Metoprolol Tartrate (Lopressor -) 50 mg PO BID [facility] Last Admin: 03/02/18 09:35 Dose: 50 mg Mirtazapine (Remeron -) 7.5 mg PO HS [facility] Last Admin: 03/01/18 22:17 Dose: 7.5 mg Multivitamins/Minerals/Vitamin C (Tab-A-Vit -) 1 tab PO DAILY [facility] Last Admin: 03/02/18 09:36 Dose: 1 tab Sertraline HCl (Zoloft -) 50 mg PO DAILY [facility] Last Admin: 03/02/18 09:36 Dose: 50 mg A/P Acute on Chronic Hypoxic and Hypercapneic Respiratory Failure Pneumonia UTI Sepsis Multiple Sclerosis Functional Quadriplegia - continue antibiotics per ID - monitor urine output, creatinine - placed on CPAP/PS - taper Fio2 to keep Spo2 >90% - can try trach collar if tolerating CPAP/PS - enteral feeds - DVT/GI prophylaxis - can monitor on vent floor Problem List - Problems (1) Acute on chronic respiratory failure with hypoxia and hypercapnia Code(s): J96.21 - ACUTE AND CHRONIC RESPIRATORY FAILURE WITH HYPOXIA; J96.22 - ACUTE AND CHRONIC RESPIRATORY FAILURE WITH HYPERCAPNIA (2) Urinary tract infection Code(s): N39.0 - URINARY TRACT INFECTION, SITE NOT SPECIFIED Qualifiers: Urinary tract infection type: site unspecified Hematuria presence: with hematuria Qualified Code(s): N39.0 - Urinary tract infection, site not specified; R31.9 - Hematuria, unspecified (3) Sepsis Code(s): A41.9 - SEPSIS, UNSPECIFIED ORGANISM (4) Decubital ulcer Code(s): L89.90 - PRESSURE ULCER OF UNSPECIFIED SITE, UNSPECIFIED STAGE Qualifiers: Pressure injury location: unspecified location Pressure injury stage: unspecified pressure injury stage Qualified Code(s): L89.90 - Pressure ulcer of unspecified site, unspecified stage (5) Multiple sclerosis Code(s): G35 - MULTIPLE SCLEROSIS (6) Functional quadriplegia Code(s): R53.2 - FUNCTIONAL QUADRIPLEGIA
--- NOTE | 2018-03-02 12:28 | PN ---
Progress Note (short form) - Note Progress Note: Patient known for multiple decubitii, recently seen on home visit and debrieded Right Hip decubitus Patient admitted for Respiratory problems, seen in ICU On Ventilator Plan : 1. Relief of pressure , mattress for Grade IV Pressure relief 2. Wound care : Clean with NSS and apply Calcium Alginate twice a week Right Ischial decubitus 3. Continue Medical Management
[2018-03-02] MEDS: SODIUM CHLORIDE 1,000 ML IV SCH (16:10)
[2018-03-02] MEDS: MIRTAZAPINE 15 MG TABLET (FP) PO SCH (22:51)
[2018-03-03] MEDS ORDERED: PIPERACILLIN/TAZOBACTAM 3.375 GM VIAL IVPB ONE ×3 (01:53→17:15)
[2018-03-03] MEDS ORDERED: DEXTROSE 5%-WATER - 50 ML IVPB ONE ×3 (01:53→17:15)
[2018-03-03] MEDS: ACETAMINOPHEN 1000 MG/100 ML VIAL (NON FORMULARY) IVPB PRN (02:14)
[2018-03-03] MEDS: SODIUM CHLORIDE 1,000 ML IV SCH ×3 (02:15→17:18)
[2018-03-03] MEDS: PIPERACILLIN/TAZOB 3.375 GM 3.375 GM in DEXTROSE 5%-WATER - 50 ML IVPB SCH ×3 (02:15→17:18)
[2018-03-03] MEDS: hydrALAZINE HCL 50 MG TABLET (FP) PO SCH ×2 (06:34→15:13)
[2018-03-03] MEDS: LEVOTHYROXINE NA 100 MCG TABLET (FP) PO SCH (06:36)
[2018-03-03] MEDS: carBAMazepine 100 MG TAB.CHEW PO SCH ×3 (06:36→23:31)
[2018-03-03] MEDS: ALBUTEROL SO4 2.5/IPRATROPIUM 0.5 INH SOL 3 ML VIAL.NEB. NEB SCH ×4 (08:05→20:57)
[2018-03-03] MEDS: FOLIC ACID 1 MG TABLET (FP) PO SCH (11:00)
[2018-03-03] MEDS: ASCORBIC ACID 500 MG TABLET (FP) PO SCH (11:00)
[2018-03-03] MEDS: LORATADINE 10 MG TABLET PO SCH (11:00)
[2018-03-03] MEDS: METOPROLOL TARTRATE 50 MG TABLET (FP) PO SCH ×3 (11:00→23:32)
[2018-03-03] MEDS: SERTRALINE HCL 50 MG TABLET (FP) PO SCH (11:00)
[2018-03-03] MEDS: MULTIVITAMINS (DAILY MVI) TABLET (FP) PO SCH (11:00)
--- NOTE | 2018-03-03 11:25 | PN ---
Progress Note, Physician Chief Complaint: UTI R/O sepsis secondary to UTI Pneumonia Toxic metabolic encephalopathy- improved Neurogenic bladder Decubitus ulcer MS History of Present Illness: NAD mental status improving - Current Medication List Current Medications: Active Medications Acetaminophen (Ofirmev Injection -) 1,000 mg IVPB Q6H PRN PRN Reason: FEVER Last Admin: 03/03/18 02:14 Dose: 1,000 mg Albuterol/Ipratropium (Duoneb -) 1 amp NEB RQID [facility] Last Admin: 03/03/18 08:05 Dose: 1 amp Ascorbic Acid (Vitamin C -) 500 mg PO DAILY [facility] Last Admin: 03/03/18 11:00 Dose: 500 mg Carbamazepine (Tegretol -) 100 mg PO TID [facility] Last Admin: 03/03/18 06:36 Dose: 100 mg Folic Acid (Folic Acid -) 1 mg PO DAILY [facility] Last Admin: 03/03/18 11:00 Dose: 1 mg Hydralazine HCl (Apresoline -) 50 mg PO TID [facility] Last Admin: 03/03/18 06:34 Dose: Not Given Sodium Chloride (Normal Saline -) 1,000 mls @ 100 mls/hr IV ASDIR [facility] Last Admin: 03/03/18 02:15 Dose: 100 mls/hr Piperacillin Sod/Tazobactam (Sod 3.375 gm/ Dextrose) 50 mls @ 100 mls/hr IVPB Q8H-IV [facility]; Protocol Last Admin: 03/03/18 11:00 Dose: 100 mls/hr Levothyroxine Sodium (Synthroid -) 100 mcg PO DAILY@0700 [facility] Last Admin: 03/03/18 06:36 Dose: 100 mcg Loratadine (Claritin -) 10 mg PO DAILY [facility] Last Admin: 03/03/18 11:00 Dose: 10 mg Metoprolol Tartrate (Lopressor -) 50 mg PO BID [facility] Last Admin: 03/03/18 11:15 Dose: Not Given Mirtazapine (Remeron -) 7.5 mg PO HS [facility] Last Admin: 03/02/18 22:51 Dose: 7.5 mg Multivitamins/Minerals/Vitamin C (Tab-A-Vit -) 1 tab PO DAILY [facility] Last Admin: 03/03/18 11:00 Dose: 1 tab Sertraline HCl (Zoloft -) 50 mg PO DAILY [facility] Last Admin: 12/27/18 11:00 Dose: 50 mg - Objective Vital Signs: Vital Signs Temperature 98.6 F 03/03/18 11:10 Pulse Rate 78 03/03/18 11:10 Respiratory Rate 14 03/03/18 11:10 Blood Pressure 98/48 L 03/03/18 11:10 O2 Sat by Pulse Oximetry (%) 97 03/02/18 22:00 Labs: CBC, BMP 03/02/18 05:30 03/02/18 05:30 INR, PTT INR 1.23 (0.83-1.09) H 02/26/18 08:36 Fibrinogen > 500.0 mg/dL (238-498) H 02/27/18 05:08 Problem List - Problems (1) Acute on chronic respiratory failure with hypoxia and hypercapnia Assessment/Plan: -pulmonary on board -mechanical vent -wean as tolerated Code(s): J96.21 - ACUTE AND CHRONIC RESPIRATORY FAILURE WITH HYPOXIA; J96.22 - ACUTE AND CHRONIC RESPIRATORY FAILURE WITH HYPERCAPNIA (2) Decubital ulcer Code(s): L89.90 - PRESSURE ULCER OF UNSPECIFIED SITE, UNSPECIFIED STAGE Qualifiers: Pressure injury location: unspecified location Pressure injury stage: unspecified pressure injury stage Qualified Code(s): L89.90 - Pressure ulcer of unspecified site, unspecified stage (3) Malnutrition Assessment/Plan: -2/2 to poor oral intake -Is on tube feeds via NGT -[employer] Code(s): E46 - UNSPECIFIED PROTEIN-CALORIE MALNUTRITION Qualifiers: Malnutrition type: protein-calorie malnutrition (4) Presence of intrathecal baclofen pump Code(s): Z98.89 - OTHER SPECIFIED POSTPROCEDURAL STATES * DO NOT USE * (5) Sacral decubitus ulcer, stage IV Code(s): L89.154 - PRESSURE ULCER OF SACRAL REGION, STAGE 4 (6) Urinary tract infection Code(s): N39.0 - URINARY TRACT INFECTION, SITE NOT SPECIFIED Qualifiers: Urinary tract infection type: site unspecified Hematuria presence: with hematuria Qualified Code(s): N39.0 - Urinary tract infection, site not specified; R31.9 - Hematuria, unspecified (7) Hx of multiple sclerosis Code(s): Z86.69 - PERSONAL HISTORY OF DIS OF THE NERVOUS SYS AND SENSE ORGANS (8) Metabolic encephalopathy Assessment/Plan: -improving Code(s): G93.41 - METABOLIC ENCEPHALOPATHY (9) Multiple drug resistant organism (MDRO) culture positive Code(s): Z16.24 - RESISTANCE TO MULTIPLE ANTIBIOTICS Assessment/Plan see problem list
[2018-03-03] MEDS ORDERED: PT OWN MED DRAWER 7, Y5N ONE (15:05)
--- NOTE | 2018-03-03 15:27 | PN ---
Progress Note (short form) - Note Progress Note: Vented on volume assist control, 35% FiO2. NGT remains in place. Mental status continues to improve. Intake & Output 02/28/18 03/01/18 03/02/18 03/03/18 23:59 23:59 23:59 23:59 Intake Total 1266 2454 1788 1950 Output Total 1350 2100 1650 300 Balance -84 139 446 6767 Weight 136 lb 2 oz 136 lb 2 oz 132 lb 9 oz Last Vital Signs Temp Pulse Resp BP Pulse Ox 98.3 F 91 H 14 131/67 97 03/03/18 14:49 03/03/18 14:49 03/03/18 14:49 03/03/18 14:49 03/02/18 22:00 Active Medications Acetaminophen (Ofirmev Injection -) 1,000 mg IVPB Q6H PRN PRN Reason: FEVER Last Admin: 03/03/18 02:14 Dose: 1,000 mg Albuterol/Ipratropium (Duoneb -) 1 amp NEB RQID [facility] Last Admin: 03/03/18 12:11 Dose: 1 amp Ascorbic Acid (Vitamin C -) 500 mg PO DAILY [facility] Last Admin: 03/03/18 11:00 Dose: 500 mg Carbamazepine (Tegretol -) 100 mg PO TID [facility] Last Admin: 03/03/18 15:13 Dose: 100 mg Folic Acid (Folic Acid -) 1 mg PO DAILY [facility] Last Admin: 03/03/18 11:00 Dose: 1 mg Hydralazine HCl (Apresoline -) 50 mg PO TID [facility] Last Admin: 03/03/18 15:13 Dose: 50 mg Sodium Chloride (Normal Saline -) 1,000 mls @ 100 mls/hr IV ASDIR [facility] Last Admin: 03/03/18 10:50 Dose: Not Given Piperacillin Sod/Tazobactam (Sod 3.375 gm/ Dextrose) 50 mls @ 100 mls/hr IVPB Q8H-IV [facility]; Protocol Last Admin: 03/03/18 11:00 Dose: 100 mls/hr Levothyroxine Sodium (Synthroid -) 100 mcg PO DAILY@0700 [facility] Last Admin: 03/03/18 06:36 Dose: 100 mcg Loratadine (Claritin -) 10 mg PO DAILY [facility] Last Admin: 03/03/18 11:00 Dose: 10 mg Metoprolol Tartrate (Lopressor -) 50 mg PO BID [facility] Last Admin: 03/03/18 11:15 Dose: Not Given Mirtazapine (Remeron -) 7.5 mg PO HS [facility] Last Admin: 03/02/18 22:51 Dose: 7.5 mg Multivitamins/Minerals/Vitamin C (Tab-A-Vit -) 1 tab PO DAILY [facility] Last Admin: 03/03/18 11:00 Dose: 1 tab Sertraline HCl (Zoloft -) 50 mg PO DAILY [facility] Last Admin: 03/03/18 11:00 Dose: 50 mg Gen: vented, awake Heart: RRR Lung: decresed breath sounds at the bases Abd: soft, nontender Ext: no edema Problem List - Problems (1) Acute on chronic respiratory failure with hypoxia and hypercapnia Code(s): J96.21 - ACUTE AND CHRONIC RESPIRATORY FAILURE WITH HYPOXIA; J96.22 - ACUTE AND CHRONIC RESPIRATORY FAILURE WITH HYPERCAPNIA (2) Urinary tract infection Code(s): N39.0 - URINARY TRACT INFECTION, SITE NOT SPECIFIED Qualifiers: Urinary tract infection type: site unspecified Hematuria presence: with hematuria Qualified Code(s): N39.0 - Urinary tract infection, site not specified; R31.9 - Hematuria, unspecified (3) Sepsis Code(s): A41.9 - SEPSIS, UNSPECIFIED ORGANISM (4) Decubital ulcer Code(s): L89.90 - PRESSURE ULCER OF UNSPECIFIED SITE, UNSPECIFIED STAGE Qualifiers: Pressure injury location: unspecified location Pressure injury stage: unspecified pressure injury stage Qualified Code(s): L89.90 - Pressure ulcer of unspecified site, unspecified stage (5) Multiple sclerosis Code(s): G35 - MULTIPLE SCLEROSIS (6) Functional quadriplegia Code(s): R53.2 - FUNCTIONAL QUADRIPLEGIA A/P Acute on Chronic Hypoxic and Hypercapneic Respiratory Failure Pneumonia UTI Sepsis Multiple Sclerosis Functional Quadriplegia - antibiotics per ID - CPAP/PS trials as tolerated - taper Fio2 to keep Spo2 >90% - Can attempt trach collar if tolerating CPAP/PS - enteral feeds - DVT/GI prophylaxis Dr Fox
--- NOTE | 2018-03-03 16:24 | PN ---
Progress Note, [employer] - Note Progress Note: Pt now on 5s. Improving but not yet ready for PO trials/PMV. Selected Entries 03/02/18 03/02/18 03/02/18 02:00 06:00 14:00 Lunch Temperature 99.1 F 99 F 99.2 F 03/02/18 03/02/18 03/03/18 18:41 22:00 02:00 Lunch Temperature 99.8 F H 100 F H 101.9 F H 03/03/18 03/03/18 03/03/18 06:00 11:10 14:49 Lunch NPO Temperature 99.6 F 98.6 F 98.3 F Laboratory Tests 03/02/18 05:30 WBC 9.1 I will be on vacation and have coverage for follow up, if indicated.
[2018-03-03 16:31] VITALS: BMI 18.3
[2018-03-03] MEDS ORDERED: MULTIVIT-MINERALS ORAL LIQUID PO SCH (17:37)
--- NOTE | 2018-03-03 18:52 | PN ---
Progress Note, Physician History of Present Illness: Lethargic on ventilator Breathing non- labored Spiked temp overnight Sputum c/s mixed likely colonization - Current Medication List Current Medications: Active Medications Acetaminophen (Ofirmev Injection -) 1,000 mg IVPB Q6H PRN PRN Reason: FEVER Last Admin: 03/03/18 02:14 Dose: 1,000 mg Albuterol/Ipratropium (Duoneb -) 1 amp NEB RQID [facility] Last Admin: 03/03/18 16:00 Dose: 1 amp Ascorbic Acid (Vitamin C Oral Solution -) 500 mg PO DAILY [facility] Bacitracin (Bacitracin -) 1 applic TP BID [facility] Carbamazepine (Tegretol -) 100 mg PO TID [facility] Last Admin: 03/03/18 15:13 Dose: 100 mg Folic Acid (Folic Acid -) 1 mg PO DAILY [facility] Last Admin: 03/03/18 11:00 Dose: 1 mg Hydralazine HCl (Apresoline -) 10 mg PO TID [facility] Sodium Chloride (Normal Saline -) 1,000 mls @ 100 mls/hr IV ASDIR [facility] Last Admin: 03/03/18 17:18 Dose: 100 mls/hr Piperacillin Sod/Tazobactam (Sod 3.375 gm/ Dextrose) 50 mls @ 100 mls/hr IVPB Q8H-IV [facility]; Protocol Last Admin: 03/03/18 17:18 Dose: 100 mls/hr Levothyroxine Sodium (Synthroid -) 100 mcg PO DAILY@0700 [facility] Last Admin: 03/03/18 06:36 Dose: 100 mcg Loratadine (Claritin -) 10 mg PO DAILY [facility] Last Admin: 03/03/18 11:00 Dose: 10 mg Metoprolol Tartrate (Lopressor -) 25 mg PO BID [facility] Mirtazapine (Remeron -) 7.5 mg PO HS [facility] Last Admin: 03/02/18 22:51 Dose: 7.5 mg Sertraline HCl (Zoloft -) 50 mg PO DAILY [facility] Last Admin: 03/03/18 11:00 Dose: 50 mg - Objective Vital Signs: Vital Signs Temperature 98.3 F 03/03/18 14:49 Pulse Rate 91 H 03/03/18 14:49 Respiratory Rate 14 03/03/18 14:49 Blood Pressure 131/67 03/03/18 14:49 O2 Sat by Pulse Oximetry (%) 97 03/02/18 22:00 Constitutional: Yes: No Distress Eyes: Yes: Conjunctiva Clear Cardiovascular: Yes: Regular Rate and Rhythm, S1, S2 Respiratory: Yes: Diminished Gastrointestinal: Yes: Normal Bowel Sounds, Soft Edema: LLE: 1+, RLE: 1+ Labs: CBC, BMP 03/02/18 05:30 03/02/18 05:30 INR, PTT INR 1.23 (0.83-1.09) H 02/26/18 08:36 Fibrinogen > 500.0 mg/dL (238-498) H 02/27/18 05:08 Assessment/Plan UTI R/O sepsis secondary to UTI ? Pneumonia mixed organisms in sputum c/s kailaley colonizers Toxic metabolic encephalopathy/ exacerbation MS Neurogenic bladder Decubitus ulcer Continue zosyn Repeat BC for recurrent temp
[2018-03-03] MEDS: MIRTAZAPINE 15 MG TABLET (FP) PO SCH (23:31)
[2018-03-03] MEDS: hydrALAZINE HCL 10 MG TABLET PO SCH (23:32)
[2018-03-03] MEDS: BACITRACIN 15 GM TUBE TOPICAL OINTMENT TP SCH (23:32)
[2018-03-04] MEDS ORDERED: PIPERACILLIN/TAZOBACTAM 3.375 GM VIAL IVPB ONE ×3 (01:24→18:07)
[2018-03-04] MEDS ORDERED: DEXTROSE 5%-WATER - 50 ML IVPB ONE ×3 (01:24→18:07)
[2018-03-04] MEDS: PIPERACILLIN/TAZOB 3.375 GM 3.375 GM in DEXTROSE 5%-WATER - 50 ML IVPB SCH ×3 (02:45→18:12)
[2018-03-04] MEDS: carBAMazepine 100 MG TAB.CHEW PO SCH ×3 (07:02→22:48)
[2018-03-04] MEDS: LEVOTHYROXINE NA 100 MCG TABLET (FP) PO SCH (07:02)
[2018-03-04] MEDS: hydrALAZINE HCL 10 MG TABLET PO SCH ×3 (07:02→22:49)
[2018-03-04] MEDS: SODIUM CHLORIDE 1,000 ML IV SCH ×2 (07:04→23:12)
[2018-03-04] MEDS: ALBUTEROL SO4 2.5/IPRATROPIUM 0.5 INH SOL 3 ML VIAL.NEB. NEB SCH ×4 (07:25→20:50)
[2018-03-04] MEDS: ASCORBIC ACID 500 MG/5 ML UNIT DOSE CUP PO SCH (10:58)
[2018-03-04] MEDS: METOPROLOL TARTRATE 50 MG TABLET (FP) PO SCH ×2 (11:02→22:49)
[2018-03-04] MEDS: BACITRACIN 15 GM TUBE TOPICAL OINTMENT TP SCH ×2 (11:03→23:00)
[2018-03-04] MEDS: LORATADINE 10 MG TABLET PO SCH (11:03)
[2018-03-04] MEDS: MULTIVIT-MINERALS ORAL LIQUID PO SCH (11:03)
[2018-03-04] MEDS: FOLIC ACID 1 MG TABLET (FP) PO SCH (11:03)
[2018-03-04] MEDS: SERTRALINE HCL 50 MG TABLET (FP) PO SCH (11:04)
--- NOTE | 2018-03-04 11:30 | PN ---
Progress Note, [employer] [place] - Note Progress Note: Case discussed with pt's sister who is her HCP. She said that she thought her sister would pass this time. She was receptive to talking to Palliative Care nurse regarding possibly letting her pass at home, at some time in the future and be DNR/DNI. She feels her mother could never address that. She has spoken with her sister in the past but has been afraid to bring it up with her recently. She said maybe next week it can be addressed. Conversation occurred today with primary nurse present. If that time arises and pt is stable, consider using PMV for the discussion with family and Palliative care/PMD, to maximize communication and intelligibility.
--- NOTE | 2018-03-04 12:48 | PN ---
Progress Note (short form) - Note Progress Note: PULMONARY AWAKE/AIDE IN ATTENDANCE VSS/AFEBRILE Vented on volume assist control, 35% FiO2. NGT remains in place. Mental status continues to improve. Gen: vented, awake Heart: RRR Lung: decresed breath sounds at the bases Abd: soft, nontender Ext: no edema micro/meds/notes reviewed A/P Acute on Chronic Hypoxic and Hypercapneic Respiratory Failure Pneumonia UTI Sepsis Multiple Sclerosis Functional Quadriplegia - antibiotics per ID - CPAP/PS trials as tolerated - taper Fio2 to keep Spo2 >90% - Can attempt trach collar if tolerating CPAP/PS - enteral feeds - DVT/GI prophylaxis Chris TINEO MD
--- NOTE | 2018-03-04 12:59 | PN ---
Progress Note, Physician Chief Complaint: patient seen and examined on med floor awake more alert today - Current Medication List Current Medications: Active Medications Acetaminophen (Ofirmev Injection -) 1,000 mg IVPB Q6H PRN PRN Reason: FEVER Last Admin: 03/03/18 02:14 Dose: 1,000 mg Albuterol/Ipratropium (Duoneb -) 1 amp NEB RQID [facility] Last Admin: 03/04/18 11:25 Dose: 1 amp Ascorbic Acid (Vitamin C Oral Solution -) 500 mg PO DAILY [facility] Last Admin: 03/04/18 10:58 Dose: 500 mg Bacitracin (Bacitracin -) 1 applic TP BID [facility] Last Admin: 03/04/18 11:03 Dose: 1 applic Carbamazepine (Tegretol -) 100 mg PO TID [facility] Last Admin: 03/04/18 07:02 Dose: 100 mg Folic Acid (Folic Acid -) 1 mg PO DAILY [facility] Last Admin: 03/04/18 11:03 Dose: 1 mg Hydralazine HCl (Apresoline -) 10 mg PO TID [facility] Last Admin: 03/04/18 07:02 Dose: 10 mg Sodium Chloride (Normal Saline -) 1,000 mls @ 100 mls/hr IV ASDIR [facility] Last Admin: 03/04/18 07:04 Dose: 100 mls/hr Piperacillin Sod/Tazobactam (Sod 3.375 gm/ Dextrose) 50 mls @ 100 mls/hr IVPB Q8H-IV [facility]; Protocol Last Admin: 03/04/18 10:59 Dose: 100 mls/hr Levothyroxine Sodium (Synthroid -) 112 mcg PO DAILY@0700 [facility] Loratadine (Claritin -) 10 mg PO DAILY [facility] Last Admin: 03/04/18 11:03 Dose: 10 mg Metoprolol Tartrate (Lopressor -) 25 mg PO BID [facility] Last Admin: 03/04/18 11:02 Dose: 25 mg Mirtazapine (Remeron -) 7.5 mg PO HS [facility] Last Admin: 03/03/18 23:31 Dose: 7.5 mg Sertraline HCl (Zoloft -) 50 mg PO DAILY [facility] Last Admin: 03/04/18 11:04 Dose: 50 mg - Objective Vital Signs: Vital Signs Temperature 98.4 F 03/04/18 10:54 Pulse Rate 71 03/04/18 10:54 Respiratory Rate 14 03/04/18 11:38 Blood Pressure 116/50 L 03/04/18 10:54 O2 Sat by Pulse Oximetry (%) 97 03/04/18 08:05 Constitutional: Yes: Calm Cardiovascular: Yes: Regular Rate and Rhythm, S1, S2 Respiratory: Yes: Mechanically Ventilated Gastrointestinal: Yes: Normal Bowel Sounds, Soft Genitourinary: Yes: Perear Present Edema: No Neurological: Yes: Alert, Pre-Existing Deficit Labs: CBC, BMP 03/02/18 05:30 03/02/18 05:30 INR, PTT INR 1.23 (0.83-1.09) H 02/26/18 08:36 Fibrinogen > 500.0 mg/dL (238-498) H 02/27/18 05:08 Problem List - Problems (1) Altered mental status Assessment/Plan: toxic metabolic encephalopathy most likely secondary to UTI- improving chronic indwelling perera iv abx zosyn Code(s): R41.82 - ALTERED MENTAL STATUS, UNSPECIFIED (2) Depression Assessment/Plan: remeron and zoloft Code(s): F32.9 - MAJOR DEPRESSIVE DISORDER, SINGLE EPISODE, UNSPECIFIED (3) Decubital ulcer Assessment/Plan: frequent turn and position dr jeffries consult saw patient - consult appreciated for vancomycin stopped Code(s): L89.90 - PRESSURE ULCER OF UNSPECIFIED SITE, UNSPECIFIED STAGE Qualifiers: Pressure injury location: unspecified location Pressure injury stage: unspecified pressure injury stage Qualified Code(s): L89.90 - Pressure ulcer of unspecified site, unspecified stage (4) Anemia Assessment/Plan: h/h note iron panel show low iron sats will give venofer on folic acid Code(s): D64.9 - ANEMIA, UNSPECIFIED Qualifiers: Other causes of anemia: other cause, not classified (5) Hypothyroid Assessment/Plan: synthroid dose increase based on tsh now dose is 112mcg from 100mcg Code(s): E03.9 - HYPOTHYROIDISM, UNSPECIFIED (6) HTN (hypertension) Assessment/Plan: continue current medications Code(s): I10 - ESSENTIAL (PRIMARY) HYPERTENSION (7) Hx of multiple sclerosis Assessment/Plan: vent support possible weaning of vent if ok with pulm enteral feeds via ng tube for now will hold off on po for now Code(s): Z86.69 - PERSONAL HISTORY OF DIS OF THE NERVOUS SYS AND SENSE ORGANS
[2018-03-04] MEDS ORDERED: IRON SUCROSE INJECTION 200 MG in SODIUM CHLORIDE 90 ML IVPB ONE (15:00)
[2018-03-04] MEDS: ENOXAPARIN NA (PORCINE) 40 MG/0.4 ML DISP.SYRIN SQ SCH (15:14)
[2018-03-04] MEDS: MIRTAZAPINE 15 MG TABLET (FP) PO SCH (22:49)
[2018-03-05] MEDS ORDERED: PIPERACILLIN/TAZOBACTAM 3.375 GM VIAL IVPB ONE ×2 (02:51→10:46)
[2018-03-05] MEDS ORDERED: DEXTROSE 5%-WATER - 50 ML IVPB ONE ×2 (02:51→10:46)
[2018-03-05] MEDS: PIPERACILLIN/TAZOB 3.375 GM 3.375 GM in DEXTROSE 5%-WATER - 50 ML IVPB SCH ×3 (02:56→19:00)
[2018-03-05] MEDS: hydrALAZINE HCL 10 MG TABLET PO SCH ×3 (06:10→22:00)
[2018-03-05] MEDS: carBAMazepine 100 MG TAB.CHEW PO SCH ×3 (06:10→22:03)
[2018-03-05] MEDS: LEVOTHYROXINE NA 112 MCG TABLET (FP) PO SCH (07:10)
[2018-03-05] MEDS: ALBUTEROL SO4 2.5/IPRATROPIUM 0.5 INH SOL 3 ML VIAL.NEB. NEB SCH ×4 (07:30→20:31)
[2018-03-05 08:57] LABS: HEMATOCRIT 18.7 % (32.4-45.2); MCH 31.6 pg (25.7-33.7); MCHC 32.6 g/dl (32.0-36.0); MEAN PLT VOLUME 8.2 fl (7.5-11.1); PLATELET COUNT 253 K/MM3 (134-434); RBC 1.92 M/mm3 (3.60-5.2); RDW 15.3 % (11.6-15.6); WHITE BLOOD COUNT 7.5 K/mm3 (4.0-10.0)
[2018-03-05 09:07] LABS: HEMOGLOBIN 6.1 GM/dL (10.7-15.3)
[2018-03-05 09:25] LABS: ALBUMIN 1.8 g/dl (3.4-5.0); ALK PHOS 150 U/L (45-117); ANION GAP 6 MMOL/L (8-16); BILIRUBIN,TOTAL 0.2 mg/dL (0.2-1); BLOOD UREA NITROGEN 26 mg/dL (7-18); CHLORIDE 105 mmol/L (98-107); CO2 29 mmol/L (21-32); CREATININE 0.5 mg/dL (0.55-1.3); GLUCOSE,RANDOM 111 mg/dL (74-106); POTASSIUM 4.1 mmol/L (3.5-5.1); SGOT/AST 46 U/L (15-37); SGPT/ALT 34 U/L (13-61); SODIUM 140 mmol/L (136-145); TOT PROT 5.8 g/dl (6.4-8.2)
[2018-03-05 10:36] LABS: MCH 31.7 pg (25.7-33.7); MCHC 32.4 g/dl (32.0-36.0); MEAN CELL VOLUME 97.7 fl (80-96); MEAN PLT VOLUME 7.9 fl (7.5-11.1); PLATELET COUNT 260 K/MM3 (134-434); RBC 1.84 M/mm3 (3.60-5.2); RDW 15.2 % (11.6-15.6); WHITE BLOOD COUNT 8.3 K/mm3 (4.0-10.0)
[2018-03-05 10:44] LABS: HEMOGLOBIN 5.8 GM/dL (10.7-15.3)
[2018-03-05] MEDS: FOLIC ACID 1 MG TABLET (FP) PO SCH (10:51)
[2018-03-05] MEDS: LORATADINE 10 MG TABLET PO SCH (10:51)
[2018-03-05] MEDS: SERTRALINE HCL 50 MG TABLET (FP) PO SCH (10:52)
[2018-03-05] MEDS: SODIUM CHLORIDE 1,000 ML IV SCH (11:00)
[2018-03-05] MEDS: METOPROLOL TARTRATE 50 MG TABLET (FP) PO SCH ×2 (11:05→22:01)
[2018-03-05] MEDS ORDERED: IRON SUCROSE INJECTION 300 MG in SODIUM CHLORIDE 235 ML IVPB ONE (11:07)
--- NOTE | 2018-03-05 12:11 | PN ---
Progress Note (short form) - Note Progress Note: PULMONARY RESTING/ON MVV AC MODE HGB REPEAT DOWN TO 5.8 GMS Temp curve decreasing NGT remains in place. Mental status continues to improve as per family Gen: vented, Heart: RRR Lung: decresed breath sounds at the bases Abd: soft, nontender Ext: no edema micro/meds/notes/labs reviewed A/P Acute on Chronic Hypoxic and Hypercapneic Respiratory Failure Pneumonia UTI Sepsis Multiple Sclerosis Functional Quadriplegia Anemia - antibiotics per ID - CPAP/PS trials as tolerated - taper Fio2 to keep Spo2 >90% - Can attempt trach collar if tolerating CPAP/PS - enteral feeds - DVT/GI prophylaxis - transfuse to hgb 8gms or above Chris TINEO MD
[2018-03-05] MEDS ORDERED: PT OWN MED DRAWER 7, Y5N ONE (12:37)
[2018-03-05] MEDS: BACITRACIN 15 GM TUBE TOPICAL OINTMENT TP SCH ×2 (13:08→22:03)
[2018-03-05] MEDS: ASCORBIC ACID 500 MG/5 ML UNIT DOSE CUP PO SCH (13:10)
[2018-03-05] MEDS: MULTIVIT-MINERALS ORAL LIQUID PO SCH (13:10)
--- NOTE | 2018-03-05 13:30 | PN ---
Progress Note, Physician Chief Complaint: UTI R/O sepsis secondary to UTI Pneumonia Toxic metabolic encephalopathy- improved Neurogenic bladder Decubitus ulcer MS History of Present Illness: NAD mental status improving sudden drop in H/H no signs of overt bleeding NGT in place On mechanical vent - Current Medication List Current Medications: Active Medications Acetaminophen (Ofirmev Injection -) 1,000 mg IVPB Q6H PRN PRN Reason: FEVER Last Admin: 03/03/18 02:14 Dose: 1,000 mg Albuterol/Ipratropium (Duoneb -) 1 amp NEB RQID [facility] Last Admin: 03/05/18 11:25 Dose: 1 amp Ascorbic Acid (Vitamin C Oral Solution -) 500 mg PO DAILY [facility] Last Admin: 03/05/18 13:10 Dose: 500 mg Bacitracin (Bacitracin -) 1 applic TP BID [facility] Last Admin: 03/05/18 13:08 Dose: 1 applic Carbamazepine (Tegretol -) 100 mg PO TID [facility] Last Admin: 03/05/18 13:11 Dose: 100 mg Folic Acid (Folic Acid -) 1 mg PO DAILY [facility] Last Admin: 03/05/18 10:51 Dose: 1 mg Hydralazine HCl (Apresoline -) 10 mg PO TID [facility] Last Admin: 03/05/18 06:10 Dose: 10 mg Sodium Chloride (Normal Saline -) 1,000 mls @ 100 mls/hr IV ASDIR [facility] Last Admin: 03/04/18 23:12 Dose: 100 mls/hr Piperacillin Sod/Tazobactam (Sod 3.375 gm/ Dextrose) 50 mls @ 100 mls/hr IVPB Q8H-IV CATHERINE; Protocol Last Admin: 03/05/18 10:50 Dose: 100 mls/hr Levothyroxine Sodium (Synthroid -) 112 mcg PO DAILY@0700 [facility] Last Admin: 03/05/18 07:10 Dose: 112 mcg Loratadine (Claritin -) 10 mg PO DAILY [facility] Last Admin: 03/05/18 10:51 Dose: 10 mg Metoprolol Tartrate (Lopressor -) 25 mg PO BID [facility] Last Admin: 03/05/18 11:05 Dose: Not Given Mirtazapine (Remeron -) 7.5 mg PO HS [facility] Last Admin: 03/04/18 22:49 Dose: 7.5 mg Sertraline HCl (Zoloft -) 50 mg PO DAILY [facility] Last Admin: 03/05/18 10:52 Dose: 50 mg - Objective Vital Signs: Vital Signs Temperature 99.2 F 03/05/18 10:00 Pulse Rate 64 03/05/18 10:00 Respiratory Rate 14 03/05/18 11:48 Blood Pressure 102/50 L 03/05/18 10:00 O2 Sat by Pulse Oximetry (%) 97 03/05/18 08:00 Constitutional: Yes: No Distress, Calm, Cachectic Cardiovascular: Yes: Regular Rate and Rhythm Respiratory: Yes: Mechanically Ventilated, Rhonchi Gastrointestinal: Yes: Normal Bowel Sounds, Soft Musculoskeletal: Yes: WNL Extremities: Yes: WNL Edema: No Peripheral Pulses WNL: Yes Neurological: Yes: Alert, Pre-Existing Deficit Psychiatric: Yes: Alert Labs: CBC, BMP 03/05/18 10:20 03/05/18 07:55 INR, PTT INR 1.23 (0.83-1.09) H 02/26/18 08:36 Fibrinogen > 500.0 mg/dL (238-498) H 02/27/18 05:08 Problem List - Problems (1) Malnutrition Assessment/Plan: -2/2 to poor oral intake -Is on tube feeds via NGT -[employer] Code(s): E46 - UNSPECIFIED PROTEIN-CALORIE MALNUTRITION Qualifiers: Malnutrition type: protein-calorie malnutrition (2) Acute on chronic respiratory failure with hypoxia and hypercapnia Assessment/Plan: -pulmonary on board -mechanical vent -wean as tolerated Code(s): J96.21 - ACUTE AND CHRONIC RESPIRATORY FAILURE WITH HYPOXIA; J96.22 - ACUTE AND CHRONIC RESPIRATORY FAILURE WITH HYPERCAPNIA (3) Altered mental status Assessment/Plan: -2/2 to metabolic encephalopathy Code(s): R41.82 - ALTERED MENTAL STATUS, UNSPECIFIED (4) Anemia Assessment/Plan: -was stable until a sudden drop today from 8.4 to 5.8 -GI consult -Stool OB -reached out to hematology to evaluate again -2 units PRBC -monitor trend Code(s): D64.9 - ANEMIA, UNSPECIFIED Qualifiers: Other causes of anemia: other cause, not classified (5) Elevated LFTs Assessment/Plan: -chronic -GI consult Code(s): R79.89 - OTHER SPECIFIED ABNORMAL FINDINGS OF BLOOD CHEMISTRY (6) Metabolic encephalopathy Assessment/Plan: -improving Code(s): G93.41 - METABOLIC ENCEPHALOPATHY (7) Sepsis Assessment/Plan: -Seen by ID -On IV abx -afebrile -no leukocytosis Code(s): A41.9 - SEPSIS, UNSPECIFIED ORGANISM Assessment/Plan see problem list Pt is DNR/DNI, would retrieve documents from medical records. Her HCP is her sister Erinn.
--- NOTE | 2018-03-05 13:36 | CON.GI ---
Consult Consult Specialty:: Gastroenterology Referred by:: Ana Paula Gloria NP Reason for Consultation:: Worsening anemia - History of Present Illness Chief Complaint: Ventilator dependent but denies pain History of Present Illness: 53F nonambulatory and ventilator ( trach) dependent female with multiple sclerosis is noted to have a Hb drop from 8.7 to 5.8 in 3 days. She was admitted for urosepsis and toxic encephalopathy. She has not overt bleeding evident. Her sisters Erinn and Tiffani ( Health care proxies, Erinn is an RN ) tell me that Geetha has a chronic transfusion requiring anemia but has never had GI bleeding. She had a normal colonoscopy remotely. She has major decubiti in the sacral and buttock areas. She is on lovenox and being taken care at home. The daughters tell me that Geetha needs to be manually disempacted regularly or she does not evacuate. She eats when at home but now has NG feeding. She has been seen by Dr Dangelo and Dr Hector in the past for annormal LFTs, anemia and PEG discussion and gallstones were found on 12/22 CT. They tell me that Geetha has not had any surgery aside from insertion of the Baclofen pump in her RUQ. - History Source History Provided By: Family Member Limitations to Obtaining History: Other (toxic encephalopathy) - Past Medical History [employer]: Yes: Multiple Sclerosis (quadraplegia), Other (legally blind, trigeminal neuralgia -> baclofen pump) Cardio/Vascular: Yes: HTN, Hyperlipdemia Pulmonary: Yes: Pneumonia, Previously Intubated, Other Gastrointestinal: Yes: Constipation (chronic) Hepatobiliary: Yes: Cholelithiasis Renal/: Yes: Neurogenic Bladder ( neurogenic bladder, chronic perera catheter) ...LMP: 06/07/12 Infectious Disease: Yes: Other (pneumonia, uti treated by urologist) Musculoskeletal: Yes: Other (Quadraplegia) Dermatology: Yes: Other (chronic decubitus followed by wound care) Additional Medical History: trigeminal neuralgia, baclofen pump. chronic decubitus followed by wound care. neurogenic bladder, chronic perera catheter - Past Surgical History Past Surgical History: Yes: Colonoscopy Additional Surgical History: RUQ Baclofen pump insertion - Alcohol/Substance Use Hx Alcohol Use: No History of Substance Use: reports: None - Smoking History Smoking history: Never smoked Have you smoked in the past 12 months: No Aproximately how many cigarettes per day: 0 - Social History Usual Living Arrangement: With Parent ADL: Support Services Place of : [facility] History of Recent Travel: No Home Medications - Allergies Allergies/Adverse Reactions: Allergies Allergy/AdvReac Type Severity Reaction Status Date / Time chloral hydrate Allergy Intermediate Rash Verified 02/25/18 18:47 [Chloral Hydrate] azathioprine [From Imuran] Allergy Rash Verified 02/25/18 18:47 azathioprine sodium Allergy Rash Verified 02/25/18 18:47 [From Imuran] adhesive tape AdvReac Severe sensitivity Verified 02/25/18 18:47 to glue adhesive AdvReac Unknown Verified 02/25/18 18:47 - Home Medications Home Medications: Ambulatory Orders Levothyroxine [Synthroid -] 100 mcg PO DAILY@0700 #30 tablet 06/24/16 hydrALAZINE HCL [Apresoline -] 50 mg PO TID 02/11/17 Carbamazepine 100 mg PO TID 01/03/18 Loratadine 10 mg PO DAILY 01/03/18 Metoprolol Succinate 50 mg PO BID 01/03/18 Potassium Chloride [K-Dur -] 20 meq PO DAILY 01/03/18 Sertraline HCl 50 mg PO DAILY 01/03/18 Furosemide 20 mg PO DAILY 02/25/18 Family Disease History - Family Disease History Family History: Unable to Obtain Physical Exam-GI Vital Signs: Vital Signs Temperature 99.2 F 03/05/18 10:00 Pulse Rate 64 03/05/18 10:00 Respiratory Rate 14 03/05/18 11:48 Blood Pressure 102/50 L 03/05/18 10:00 O2 Sat by Pulse Oximetry (%) 97 03/05/18 08:00 CBC,CMP WBC 8.3 K/mm3 (4.0-10.0) 03/05/18 10:20 RBC 1.84 M/mm3 (3.60-5.2) L 03/05/18 10:20 Hgb 5.8 GM/dL (10.7-15.3) L* 03/05/18 10:20 Hct 18.0 % (32.4-45.2) L 03/05/18 10:20 MCV 97.7 fl (80-96) H 03/05/18 10:20 MCH 31.7 pg (25.7-33.7) 03/05/18 10:20 MCHC 32.4 g/dl (32.0-36.0) 03/05/18 10:20 RDW 15.2 % (11.6-15.6) 03/05/18 10:20 Plt Count 260 K/MM3 (134-434) 03/05/18 10:20 MPV 7.9 fl (7.5-11.1) 03/05/18 10:20 Absolute Neuts (auto) 7.8 K/mm3 (1.5-8.0) 02/27/18 05:08 Neutrophils % 88.8 % (42.8-82.8) H 02/27/18 05:08 Neutrophils % (Manual) 76.0 % (42.8-82.8) 02/25/18 20:31 Band Neutrophils % 10.0 % 02/25/18 20:31 Lymphocytes % 6.3 % (8-40) L 02/27/18 05:08 Lymphocytes % (Manual) 8.0 % (8-40) D 02/25/18 20:31 Monocytes % 4.6 % (3.8-10.2) 02/27/18 05:08 Monocytes % (Manual) 4 % (3.8-10.2) D 02/25/18 20:31 Eosinophils % 0.1 % (0-4.5) 02/27/18 05:08 Eosinophils % (Manual) 0.0 % (0-4.5) D 02/25/18 20:31 Basophils % 0.2 % (0-2.0) 02/27/18 05:08 Basophils % (Manual) 0.0 % (0-2.0) 02/25/18 20:31 Nucleated RBC % 0 % (0-0) 02/27/18 05:08 Platelet Estimate Decreased 02/25/18 20:31 Plt Clumps, Citrate 58.0 K/MM3 (134-434) L 02/27/18 05:08 Platelet Comment No clumping noted 02/25/18 20:31 Retic Count 0.37 % (0.5-1.5) L D 02/27/18 05:08 Sodium 140 mmol/L (136-145) 03/05/18 07:55 Potassium 4.1 mmol/L (3.5-5.1) 03/05/18 07:55 Chloride 105 mmol/L (98-107) 03/05/18 07:55 Carbon Dioxide 29 mmol/L (21-32) 03/05/18 07:55 Anion Gap 6 MMOL/L (8-16) L 03/05/18 07:55 BUN 26 mg/dL (7-18) H 03/05/18 07:55 Creatinine 0.5 mg/dL (0.55-1.3) L 03/05/18 07:55 Creat Clearance w eGFR > 60 (>60) 03/05/18 07:55 POC Glucometer 105.65004 UNITS (80-120) 02/27/18 19:53 Random Glucose 111 mg/dL (74-106) H 03/05/18 07:55 Lactic Acid 0.4 mmol/L (0.4-2.0) 02/25/18 20:40 Calcium 8.0 mg/dL (8.5-10.1) L 03/05/18 07:55 Iron 28 ug/dL (27-159) 02/27/18 05:08 TIBC 207 ug/dL (250-450) L 02/27/18 05:08 Iron Saturation 14 % (15-55) L 02/27/18 05:08 Ferritin 940.9 ng/ml (8-388) H 02/27/18 05:08 Total Bilirubin 0.2 mg/dL (0.2-1) 03/05/18 07:55 AST 46 U/L (15-37) H 03/05/18 07:55 ALT 34 U/L (13-61) 03/05/18 07:55 Alkaline Phosphatase 150 U/L (45-117) H 03/05/18 07:55 Creatine Kinase 98 IU/L (26-192) 02/25/18 20:31 Troponin I < 0.02 ng/ml (0.00-0.05) 02/26/18 05:08 Total Protein 5.8 g/dl (6.4-8.2) L 03/05/18 07:55 Albumin 1.8 g/dl (3.4-5.0) L 03/05/18 07:55 Vitamin B12 3510 pg/ml (193-986) H 02/27/18 05:08 Serum Folate 26 ng/mL (3.1-17.5) H 02/27/18 05:08 TSH 3.57 uIU/ml (0.358-3.74) 03/01/18 05:30 Current Medications Generic Name Dose Route Start Last Admin Trade Name Freq PRN Reason Stop Dose Admin Acetaminophen 1,000 mg 03/01/18 10:49 03/03/18 02:14 Ofirmev Injection - IVPB 1,000 mg Q6H PRN Administration FEVER Albuterol/Ipratropium 1 amp 03/01/18 12:00 03/05/18 11:25 Duoneb - NEB 1 amp RQID CATHERINE Administration Ascorbic Acid 500 mg 03/03/18 17:37 03/05/18 13:10 Vitamin C Oral Solution - PO 500 mg DAILY [facility]INE Administration Bacitracin 1 applic 03/03/18 22:00 03/05/18 13:08 Bacitracin - TP 1 applic BID [facility]ATHERINE Administration Carbamazepine 100 mg 03/01/18 14:00 03/05/18 13:11 Tegretol - PO 100 mg TID CATHERINE Administration Folic Acid 1 mg 03/02/18 10:00 03/05/18 10:51 Folic Acid - PO 1 mg DAILY [facility]INE Administration Hydralazine HCl 10 mg 03/03/18 22:00 03/05/18 06:10 Apresoline - PO 10 mg TID CATHERINE Administration Sodium Chloride 1,000 mls @ 100 mls/hr 03/01/18 10:49 03/04/18 23:12 Normal Saline - IV 100 mls/hr ASDIR CATHERINE Administration Piperacillin Sod/Tazobactam 50 mls @ 100 mls/hr 03/01/18 18:00 03/05/18 10:50 Sod 3.375 gm/ Dextrose IVPB 100 mls/hr Q8H-IV CATHERINE Administration Protocol Levothyroxine Sodium 112 mcg 03/04/18 12:55 03/05/18 07:10 Synthroid - PO 112 mcg DAILY@0700 [facility]INE Administration Loratadine 10 mg 03/02/18 10:00 03/05/18 10:51 Claritin - PO 10 mg DAILY [facility]INE Administration Metoprolol Tartrate 25 mg 03/03/18 17:44 03/05/18 11:05 Lopressor - PO Not Given BID [facility]INE Mirtazapine 7.5 mg 03/01/18 22:00 03/04/18 22:49 Remeron - PO 7.5 mg HS C[facility]ERINE Administration Sertraline HCl 50 mg 03/02/18 10:00 03/05/18 10:52 Zoloft - PO 50 mg DAILY [facility] Administration Constitutional: Yes: No Distress HENT: Yes: Atraumatic Neck: Yes: Supple Cardiovascular: Yes: Regular Rate and Rhythm Respiratory: Yes: Mechanically Ventilated, Rhonchi Gastrointestinal Inspection: Yes: Scars (transverse RUQ healed incision with underlying Baclofen pump), Other (no flank hematomas or Michael's sign suprapubic cystostomy catheter) ...Auscultate: Yes: Normoactive Bowel Sounds ...Palpate: Yes: Mass (RUQ underlying Baclofen pump), Soft, Other (no tenderness elicited) ...Percussion: Yes: Tympanitic ...Rectal Exam: Yes: Guaiac Negative (hard dark brown guaiac negative stool), Other (deep wide sacral and buttock decubiti) Extremities: Yes: Other (atrophic musculature with contractures) Neurological: Yes: Lethargy (but mimics response) Labs: CBC, BMP 03/05/18 10:20 03/05/18 07:55 INR, PTT INR 1.23 (0.83-1.09) H 02/26/18 08:36 Fibrinogen > 500.0 mg/dL (238-498) H 02/27/18 05:08 Laboratory Tests 08/11/10 06/09/12 09/12/12 21:30 06:00 09:25 Hgb 13.0 12.0 10.4 L 10/03/12 12/12/12 12/16/12 06:00 10:55 05:00 Hgb 10.7 10.4 L 8.7 L* 04/08/14 04/09/14 08/22/14 05:20 05:10 05:20 Hgb 9.7 L 7.5 L D 7.6 L 08/23/14 02/08/16 05/05/16 10:00 06:10 02:00 Hgb 10.9 D 8.7 L 9.7 L D 05/05/16 05/05/16 12/11/16 05:10 08:10 14:30 Hgb 5.7 L* D 8.6 L D 10.9 02/16/17 01/07/18 02/27/18 07:10 06:35 05:08 Hgb 7.6 L 8.1 L 8.7 L 02/27/18 03/02/18 03/05/18 21:00 05:30 07:55 Hgb 8.2 L 8.4 L 6.1 L* 03/05/18 10:20 Hgb 5.8 L* Problem List - Problems (1) Anemia Assessment/Plan: Given the acute drop in Hb bleeding suspected. The most likely etiologies include GI tract stress erosions and ulcers, erosive GERD, AVMs, stercoral ulcer , diverticulosis, ischemic colitis and neoplasms. I have discussed this with both health care proxy sisters and proposed and EGD and later possibly a colonoscopy. I informed them of the potential for such complications as perforation and hemorrhage during endoscopy. They have told me that they do not want colonoscopy and would allow EGD only if life threatening hemorrhage occurs. If undertaken the want DNR kept in effect during the procedure. Mago the nurse witnessed this discussion. I also told them that the bleeding could be due to a retroperitoneal bleed and advised a noncontrast CT. They are not opposed to this. Code(s): D64.9 - ANEMIA, UNSPECIFIED Qualifiers: Other causes of anemia: other cause, not classified (2) Acute on chronic respiratory failure with hypoxia and hypercapnia Code(s): J96.21 - ACUTE AND CHRONIC RESPIRATORY FAILURE WITH HYPOXIA; J96.22 - ACUTE AND CHRONIC RESPIRATORY FAILURE WITH HYPERCAPNIA (3) Sacral decubitus ulcer, stage IV Code(s): L89.154 - PRESSURE ULCER OF SACRAL REGION, STAGE 4 (4) Altered mental status Code(s): R41.82 - ALTERED MENTAL STATUS, UNSPECIFIED (5) Constipation Code(s): K59.00 - CONSTIPATION, UNSPECIFIED (6) Hx of multiple sclerosis Code(s): Z86.69 - PERSONAL HISTORY OF DIS OF THE NERVOUS SYS AND SENSE ORGANS (7) Metabolic encephalopathy Code(s): G93.41 - METABOLIC ENCEPHALOPATHY (8) Multiple sclerosis Code(s): G35 - MULTIPLE SCLEROSIS (9) Status post tracheostomy Code(s): Z93.0 - TRACHEOSTOMY STATUS (10) Ventilator associated pneumonia Code(s): J95.851 - VENTILATOR ASSOCIATED PNEUMONIA Assessment/Plan Acute anemia deterioration, likely bleeding Stat CT to exclude retroperitoneal bleed Transfuse PPI drip NG to suctioning EGD is consent is granted I discussed the case with Ana Paula Gloria FLIGHT TEST ENGINEER
--- NOTE | 2018-03-05 13:51 | PN ---
Progress Note (short form) - Note Progress Note: Patient seen in follow up. Notified regarding 2g/dL drop in Hb over past 2 days. Prior thrombocytopenia resolved. No suggestion of hemorrhage. Above incidentally found- patient by all other accounts doing well - clinically significantly improved compared to admission status. No significant events overnight. Inpatient Meds reviewed. Current Medications Generic Name Dose Route Start Last Admin Trade Name Freq PRN Reason Stop Dose Admin Acetaminophen 1,000 mg 03/01/18 10:49 03/03/18 02:14 Ofirmev Injection - IVPB 1,000 mg Q6H PRN Administration FEVER Albuterol/Ipratropium 1 amp 03/01/18 12:00 03/05/18 11:25 Duoneb - NEB 1 amp RQID CATHERINE Administration Ascorbic Acid 500 mg 03/03/18 17:37 03/05/18 13:10 Vitamin C Oral Solution - PO 500 mg DAILY [facility]ERINE Administration Bacitracin 1 applic 03/03/18 22:00 03/05/18 13:08 Bacitracin - TP 1 applic BID [facility]ERINE Administration Carbamazepine 100 mg 03/01/18 14:00 03/05/18 13:11 Tegretol - PO 100 mg TID C[facility]ERINE Administration Folic Acid 1 mg 03/02/18 10:00 03/05/18 10:51 Folic Acid - PO 1 mg DAILY [facility]INE Administration Hydralazine HCl 10 mg 03/03/18 22:00 03/05/18 06:10 Apresoline - PO 10 mg TID [facility]ERINE Administration Sodium Chloride 1,000 mls @ 100 mls/hr 03/01/18 10:49 03/04/18 23:12 Normal Saline - IV 100 mls/hr ASDIR [facility] Administration Piperacillin Sod/Tazobactam 50 mls @ 100 mls/hr 03/01/18 18:00 03/05/18 10:50 Sod 3.375 gm/ Dextrose IVPB 100 mls/hr Q8H-IV CATHERINE Administration Protocol Levothyroxine Sodium 112 mcg 03/04/18 12:55 03/05/18 07:10 Synthroid - PO 112 mcg DAILY@0700 [facility] Administration Loratadine 10 mg 03/02/18 10:00 03/05/18 10:51 Claritin - PO 10 mg DAILY [facility]INE Administration Metoprolol Tartrate 25 mg 03/03/18 17:44 03/05/18 11:05 Lopressor - PO Not Given BID [facility]ERINE Mirtazapine 7.5 mg 03/01/18 22:00 03/04/18 22:49 Remeron - PO 7.5 mg HS CATHERINE Administration Sertraline HCl 50 mg 03/02/18 10:00 03/05/18 10:52 Zoloft - PO 50 mg DAILY [facility]INE Administration On Examination: Last Vital Signs Temp Pulse Resp BP Pulse Ox 98.6 F 64 14 108/50 L 97 03/05/18 13:39 03/05/18 13:39 03/05/18 13:39 03/05/18 13:39 03/05/18 08:00 General: In no acute distress, lying comfortably in bed. Extremities: No pallor or icterus. No pedal edema. No palpable lymphadenopathy. Chest: breathing comfortably Abdomen: Non-distended, non-tender, no palpable organomegaly. Neuro: Alert, oriented, non-focal. Labs: CBC, BMP 03/05/18 10:20 03/05/18 07:55 Assessment. Patient admitted with severe sepsis, with expected hematological sequelae - thrombocytopenia, hypoproliferative anemia, possible consumption coagulopathy - subsequently clinically significantly improved, with resolution of all septic parameters, but today with surprisingly noted drop in Hb. Hgh index of suspicion for occult GI hemorrhage - stool occult blood pending. Would also rule out hemolysis - possibly drug induced if present - check retic count, haptoglobin, LDH, Gonzalo. Recheck clotting times. Significantly elevated ferritin suggests unlikely benefit from supplemental IV iron - hold. Will follow with you. Call with questions.
[2018-03-05 16:12] LABS: INR 1.19 (0.83-1.09); PROTHROMBIN TIME (PATIENT) 14.1 SEC (9.7-13.0)
[2018-03-05 16:15] LABS: ACTIVATED PTT 37.2 SECONDS (25.2-36.5)
[2018-03-05] MEDS: ENOXAPARIN NA (PORCINE) 40 MG/0.4 ML DISP.SYRIN SQ SCH (17:39)
[2018-03-05] MEDS: MIRTAZAPINE 15 MG TABLET (FP) PO SCH (22:02)
[2018-03-05] MEDS: PANTOPRAZOLE SODIUM 40 MG VIAL IVPUSH SCH (22:02)
[2018-03-05] MEDS: POLYETHYLENE GLYCOL 3350 119 GM BTL NGT SCH (22:03)
[2018-03-06] MEDS ORDERED: PIPERACILLIN/TAZOBACTAM 3.375 GM VIAL IVPB ONE ×3 (01:33→17:34)
[2018-03-06] MEDS ORDERED: DEXTROSE 5%-WATER - 50 ML IVPB ONE ×3 (01:34→17:34)
[2018-03-06] MEDS: PIPERACILLIN/TAZOB 3.375 GM 3.375 GM in DEXTROSE 5%-WATER - 50 ML IVPB SCH ×3 (02:55→17:52)
[2018-03-06] MEDS: SODIUM CHLORIDE 1,000 ML IV SCH ×2 (02:59→14:58)
[2018-03-06] MEDS: hydrALAZINE HCL 10 MG TABLET PO SCH ×3 (05:38→22:29)
[2018-03-06] MEDS: POLYETHYLENE GLYCOL 3350 119 GM BTL NGT SCH ×3 (06:06→22:33)
[2018-03-06] MEDS: carBAMazepine 100 MG TAB.CHEW PO SCH ×3 (06:07→22:32)
[2018-03-06] MEDS: LEVOTHYROXINE NA 112 MCG TABLET (FP) PO SCH (06:07)
[2018-03-06] MEDS: ALBUTEROL SO4 2.5/IPRATROPIUM 0.5 INH SOL 3 ML VIAL.NEB. NEB SCH ×4 (07:20→19:46)
[2018-03-06 08:26] LABS: BASO % 0.6 % (0-2.0); EOS % 3.4 % (0-4.5); HEMATOCRIT 22.4 % (32.4-45.2); LYMPH % 18.9 % (8-40); MEAN CELL VOLUME 93.9 fl (80-96); NEUT % 67.1 % (42.8-82.8); PLATELET COUNT 339 K/MM3 (134-434); RBC 2.39 M/mm3 (3.60-5.2); RDW 15.4 % (11.6-15.6); WHITE BLOOD COUNT 6.3 K/mm3 (4.0-10.0)
[2018-03-06 08:36] LABS: HEMOGLOBIN 7.4 GM/dL (10.7-15.3)
[2018-03-06 09:12] LABS: ALBUMIN 1.9 g/dl (3.4-5.0); ALK PHOS 139 U/L (45-117); ANION GAP 9 MMOL/L (8-16); BILIRUBIN,TOTAL 0.7 mg/dL (0.2-1); BLOOD UREA NITROGEN 18 mg/dL (7-18); CALCIUM 8.7 mg/dL (8.5-10.1); CHLORIDE 104 mmol/L (98-107); CO2 23 mmol/L (21-32); CREATININE 0.5 mg/dL (0.55-1.3); GLUCOSE,RANDOM 71 mg/dL (74-106); POTASSIUM 4.2 mmol/L (3.5-5.1); SGOT/AST 28 U/L (15-37); SGPT/ALT 31 U/L (13-61); SODIUM 137 mmol/L (136-145); TOT PROT 6.1 g/dl (6.4-8.2)
[2018-03-06] MEDS: SERTRALINE HCL 50 MG TABLET (FP) PO SCH (11:21)
[2018-03-06] MEDS: LORATADINE 10 MG TABLET PO SCH (11:21)
[2018-03-06] MEDS: ASCORBIC ACID 500 MG/5 ML UNIT DOSE CUP PO SCH (11:21)
[2018-03-06] MEDS: FOLIC ACID 1 MG TABLET (FP) PO SCH (11:21)
[2018-03-06] MEDS: MULTIVIT-MINERALS ORAL LIQUID PO SCH (11:22)
[2018-03-06] MEDS: BACITRACIN 15 GM TUBE TOPICAL OINTMENT TP SCH ×2 (11:22→22:33)
[2018-03-06] MEDS: PANTOPRAZOLE SODIUM 40 MG VIAL IVPUSH SCH ×2 (11:22→22:28)
[2018-03-06] MEDS: METOPROLOL TARTRATE 50 MG TABLET (FP) PO SCH ×2 (11:46→22:30)
--- NOTE | 2018-03-06 12:38 | PN ---
Progress Note (short form) - Note Progress Note: PULMONARY RESTING/ON MVV AC MODE HGB REPEAT DOWN TO 7.4 GMS POST 2 UNITS Temp curve decreasing NGT remains in place. Mental status continues to improve as per family Gen: vented, Heart: RRR Lung: decresed breath sounds at the bases Abd: soft, nontender Ext: no edema micro/meds/notes/labs reviewed ct abd: no retroperitoneal bleed noted/extensive RLL infiltrate A/P Acute on Chronic Hypoxic and Hypercapneic Respiratory Failure Pneumonia UTI Sepsis Multiple Sclerosis Functional Quadriplegia Anemia - antibiotics per ID - CPAP/PS trials as tolerated - taper Fio2 to keep Spo2 >90% - Can attempt trach collar if tolerating CPAP/PS - enteral feeds - DVT/GI prophylaxis - GI NOTE REVIEWED - Would try to keep hgb 8gms or above Chris TINEO MD
--- NOTE | 2018-03-06 13:52 | PN ---
GI Progress Note Subjective: GI Note: No overt bleeding found. NG suctioning unremarkable. No retroperitoneal bleed on CT. Normal LDH and low reticulocyte count argue against hemolysis. Acute Hb drop remains unexplained but could be a small bowel bleeding vascular ectasia. - Objective Vital Signs: Vital Signs Temperature 99.2 F 03/06/18 05:30 Pulse Rate 56 L 03/06/18 08:13 Respiratory Rate 14 03/06/18 12:04 Blood Pressure 105/55 L 03/06/18 05:30 O2 Sat by Pulse Oximetry (%) 98 03/06/18 08:13 Laboratory Tests 03/05/18 03/05/18 03/05/18 10:20 15:10 15:10 Hgb 5.8 L* Retic Count 1.62 H D LD Total 134 03/06/18 07:00 Hgb 7.4 L Retic Count LD Total Constitutional: No Distress ...Auscultate: Yes: Normoactive Bowel Sounds ...Palpate: Yes: Soft, Other (nontender) ...Percussion: Yes: Tympanitic Labs: CBC, BMP 03/06/18 07:00 03/06/18 07:00 INR, PTT INR 1.19 (0.83-1.09) H 03/05/18 15:10 Fibrinogen > 500.0 mg/dL (238-498) H 02/27/18 05:08 Assessment/Plan Acute anemia unexplained Continue PPI empirically Resume NG feedings Problem List - Problems (1) Anemia Assessment/Plan: Acute drop in Hb remains unexplained. Small bowel bleeding AVM suspected. Discussed with Geetha's mother at the bedside Code(s): D64.9 - ANEMIA, UNSPECIFIED Qualifiers: Other causes of anemia: other cause, not classified (2) Acute on chronic respiratory failure with hypoxia and hypercapnia Code(s): J96.21 - ACUTE AND CHRONIC RESPIRATORY FAILURE WITH HYPOXIA; J96.22 - ACUTE AND CHRONIC RESPIRATORY FAILURE WITH HYPERCAPNIA (3) Sacral decubitus ulcer, stage IV Code(s): L89.154 - PRESSURE ULCER OF SACRAL REGION, STAGE 4 (4) Altered mental status Code(s): R41.82 - ALTERED MENTAL STATUS, UNSPECIFIED (5) Constipation Code(s): K59.00 - CONSTIPATION, UNSPECIFIED (6) Hx of multiple sclerosis Code(s): Z86.69 - PERSONAL HISTORY OF DIS OF THE NERVOUS SYS AND SENSE ORGANS (7) Metabolic encephalopathy Code(s): G93.41 - METABOLIC ENCEPHALOPATHY (8) Multiple sclerosis Code(s): G35 - MULTIPLE SCLEROSIS (9) Status post tracheostomy Code(s): Z93.0 - TRACHEOSTOMY STATUS (10) Ventilator associated pneumonia Code(s): J95.851 - VENTILATOR ASSOCIATED PNEUMONIA
--- NOTE | 2018-03-06 15:04 | PN ---
Progress Note (short form) - Note Progress Note: Patient seen in follow up. No suggestion of hemorrhage. No significant events overnight. Received 2 units RBCs yesterday. Inpatient Meds reviewed. On Examination: Last Vital Signs Temp Pulse Resp BP Pulse Ox 98.6 F 64 14 108/50 L 97 03/05/18 13:39 03/05/18 13:39 03/05/18 13:39 03/05/18 13:39 03/05/18 08:00 General: In no acute distress, lying comfortably in bed. Extremities: No pallor or icterus. No pedal edema. No palpable lymphadenopathy. Chest: breathing comfortably Abdomen: Non-distended, non-tender, no palpable organomegaly. Neuro: Alert, oriented, non-focal. Labs: Hb improved to 7.4 Assessment. Patient admitted with severe sepsis, with expected hematological sequelae - thrombocytopenia, hypoproliferative anemia, possible consumption coagulopathy - subsequently clinically significantly improved, with resolution of all septic parameters, but yesterday with surprisingly noted drop in Hb. Hgh index of suspicion for occult GI hemorrhage - stool occult blood pending. GI following. Hemolysis labs negative. Recheck clotting times. Significantly elevated ferritin suggests unlikely benefit from supplemental IV iron. Will follow with you. Call with questions.
--- NOTE | 2018-03-06 18:07 | PN ---
Progress Note, Physician Chief Complaint: UTI R/O sepsis secondary to UTI Pneumonia Toxic metabolic encephalopathy- improved Neurogenic bladder Decubitus ulcer MS History of Present Illness: NAD mental status improving sudden drop in H/H no signs of overt bleeding NGT in place On mechanical vent CT abd/pelvis negative for any acute bleeding - Current Medication List Current Medications: Active Medications Acetaminophen (Ofirmev Injection -) 1,000 mg IVPB Q6H PRN PRN Reason: FEVER Last Admin: 03/03/18 02:14 Dose: 1,000 mg Albuterol/Ipratropium (Duoneb -) 1 amp NEB RQID [facility] Last Admin: 03/06/18 16:13 Dose: 1 amp Ascorbic Acid (Vitamin C Oral Solution -) 500 mg PO DAILY [facility] Last Admin: 03/06/18 11:21 Dose: 500 mg Bacitracin (Bacitracin -) 1 applic TP BID [facility] Last Admin: 03/06/18 11:22 Dose: 1 applic Carbamazepine (Tegretol -) 100 mg PO TID [facility] Last Admin: 03/06/18 14:55 Dose: 100 mg Folic Acid (Folic Acid -) 1 mg PO DAILY [facility] Last Admin: 03/06/18 11:21 Dose: 1 mg Hydralazine HCl (Apresoline -) 10 mg PO TID [facility] Last Admin: 03/06/18 14:57 Dose: 10 mg Sodium Chloride (Normal Saline -) 1,000 mls @ 100 mls/hr IV ASDIR [facility] Last Admin: 03/06/18 14:58 Dose: 100 mls/hr Piperacillin Sod/Tazobactam (Sod 3.375 gm/ Dextrose) 50 mls @ 100 mls/hr IVPB Q8H-IV [facility]; Protocol Last Admin: 03/06/18 17:52 Dose: 100 mls/hr Levothyroxine Sodium (Synthroid -) 112 mcg PO DAILY@0700 [facility] Last Admin: 03/06/18 06:07 Dose: 112 mcg Loratadine (Claritin -) 10 mg PO DAILY [facility] Last Admin: 03/06/18 11:21 Dose: 10 mg Metoprolol Tartrate (Lopressor -) 25 mg PO BID [facility] Last Admin: 03/06/18 11:46 Dose: Not Given Mirtazapine (Remeron -) 7.5 mg PO HS [facility] Last Admin: 03/05/18 22:02 Dose: 7.5 mg Pantoprazole Sodium (Protonix Iv) 40 mg IVPUSH BID [facility] Last Admin: 03/06/18 11:22 Dose: 40 mg Polyethylene Glycol (Miralax (For Daily Use) -) 17 gm NGT TID [facility] Last Admin: 03/06/18 14:55 Dose: 17 gm Sertraline HCl (Zoloft -) 50 mg PO DAILY [facility] Last Admin: 03/06/18 11:21 Dose: 50 mg - Objective Vital Signs: Vital Signs Temperature 98.3 F 03/06/18 14:00 Pulse Rate 53 L 03/06/18 14:00 Respiratory Rate 14 03/06/18 16:12 Blood Pressure 132/67 03/06/18 14:00 O2 Sat by Pulse Oximetry (%) 98 03/06/18 16:12 Constitutional: Yes: No Distress, Calm, Cachectic Cardiovascular: Yes: Regular Rate and Rhythm Respiratory: Yes: Mechanically Ventilated, Rhonchi Gastrointestinal: Yes: Normal Bowel Sounds, Soft Musculoskeletal: Yes: Muscle Weakness Edema: No Peripheral Pulses WNL: Yes Neurological: Yes: Alert, Lethargy Psychiatric: Yes: Alert Labs: CBC, BMP 03/06/18 07:00 03/06/18 07:00 INR, PTT INR 1.19 (0.83-1.09) H 03/05/18 15:10 Fibrinogen > 500.0 mg/dL (238-498) H 02/27/18 05:08 Problem List - Problems (1) Malnutrition Assessment/Plan: -2/2 to poor oral intake -Is on tube feeds via NGT -Prosource Code(s): E46 - UNSPECIFIED PROTEIN-CALORIE MALNUTRITION Qualifiers: Malnutrition type: protein-calorie malnutrition (2) Acute on chronic respiratory failure with hypoxia and hypercapnia Assessment/Plan: -pulmonary on board -mechanical vent -wean as tolerated Code(s): J96.21 - ACUTE AND CHRONIC RESPIRATORY FAILURE WITH HYPOXIA; J96.22 - ACUTE AND CHRONIC RESPIRATORY FAILURE WITH HYPERCAPNIA (3) Altered mental status Assessment/Plan: -2/2 to metabolic encephalopathy Code(s): R41.82 - ALTERED MENTAL STATUS, UNSPECIFIED (4) Anemia Assessment/Plan: -was stable until a sudden drop today from 8.4 to 5.8 -GI consult -Stool OB -reached out to hematology to evaluate again -2 units prbc -monitor trend Code(s): D64.9 - ANEMIA, UNSPECIFIED Qualifiers: Other causes of anemia: other cause, not classified (5) Elevated LFTs Assessment/Plan: -chronic -GI consult Code(s): R79.89 - OTHER SPECIFIED ABNORMAL FINDINGS OF BLOOD CHEMISTRY (6) Metabolic encephalopathy Assessment/Plan: -improving Code(s): G93.41 - METABOLIC ENCEPHALOPATHY (7) Sepsis Assessment/Plan: -Seen by ID -On IV abx -afebrile -no leukocytosis Code(s): A41.9 - SEPSIS, UNSPECIFIED ORGANISM Assessment/Plan see problem list Pt is DNR/DNI, would retrieve documents from medical records. Her HCP is her sister Erinn.
[2018-03-06] MEDS: MIRTAZAPINE 15 MG TABLET (FP) PO SCH (22:31)
[2018-03-07] MEDS: PIPERACILLIN/TAZOB 3.375 GM 3.375 GM in DEXTROSE 5%-WATER - 50 ML IVPB SCH ×3 (02:28→17:44)
[2018-03-07] MEDS: POLYETHYLENE GLYCOL 3350 119 GM BTL NGT SCH ×2 (05:53→17:45)
[2018-03-07] MEDS: carBAMazepine 100 MG TAB.CHEW PO SCH ×3 (06:14→22:34)
[2018-03-07] MEDS: LEVOTHYROXINE NA 112 MCG TABLET (FP) PO SCH (06:14)
[2018-03-07] MEDS: hydrALAZINE HCL 10 MG TABLET PO SCH ×3 (06:14→22:34)
[2018-03-07] MEDS: ALBUTEROL SO4 2.5/IPRATROPIUM 0.5 INH SOL 3 ML VIAL.NEB. NEB SCH ×4 (07:20→19:21)
[2018-03-07 07:48] LABS: BASO % 0.5 % (0-2.0); HEMOGLOBIN 9.4 GM/dL (10.7-15.3); LYMPH % 8.9 % (8-40); MCH 30.9 pg (25.7-33.7); MCHC 33.7 g/dl (32.0-36.0); MEAN CELL VOLUME 91.6 fl (80-96); MEAN PLT VOLUME 7.9 fl (7.5-11.1); MONO % 8.5 % (3.8-10.2); NEUT % 80.1 % (42.8-82.8); PLATELET COUNT 417 K/MM3 (134-434); RBC 3.06 M/mm3 (3.60-5.2); RDW 16.6 % (11.6-15.6); WHITE BLOOD COUNT 9.1 K/mm3 (4.0-10.0)
[2018-03-07 08:54] LABS: ALBUMIN 1.9 g/dl (3.4-5.0); ALK PHOS 155 U/L (45-117); ANION GAP 7 MMOL/L (8-16); BILIRUBIN,TOTAL 0.5 mg/dL (0.2-1); BLOOD UREA NITROGEN 19 mg/dL (7-18); CALCIUM 8.6 mg/dL (8.5-10.1); CHLORIDE 105 mmol/L (98-107); CO2 26 mmol/L (21-32); CREATININE 0.5 mg/dL (0.55-1.3); GLUCOSE,RANDOM 140 mg/dL (74-106); SGOT/AST 21 U/L (15-37); SGPT/ALT 26 U/L (13-61); SODIUM 138 mmol/L (136-145); TOT PROT 6.4 g/dl (6.4-8.2)
[2018-03-07] MEDS ORDERED: DEXTROSE 5%-WATER - 50 ML IVPB ONE ×2 (11:24→17:15)
[2018-03-07] MEDS ORDERED: PT OWN MED DRAWER 7, Y5N ONE (11:24)
[2018-03-07] MEDS ORDERED: PIPERACILLIN/TAZOBACTAM 3.375 GM VIAL IVPB ONE ×2 (11:24→17:14)
[2018-03-07] MEDS: BACITRACIN 15 GM TUBE TOPICAL OINTMENT TP SCH ×2 (11:30→22:33)
[2018-03-07] MEDS: SODIUM CHLORIDE 1,000 ML IV SCH ×2 (11:32→22:43)
[2018-03-07] MEDS: SERTRALINE HCL 50 MG TABLET (FP) PO SCH (11:33)
[2018-03-07] MEDS: ASCORBIC ACID 500 MG/5 ML UNIT DOSE CUP PO SCH (11:34)
[2018-03-07] MEDS: MULTIVIT-MINERALS ORAL LIQUID PO SCH (11:34)
[2018-03-07] MEDS: FOLIC ACID 1 MG TABLET (FP) PO SCH (11:35)
[2018-03-07] MEDS: LORATADINE 10 MG TABLET PO SCH (11:35)
[2018-03-07] MEDS: PANTOPRAZOLE SODIUM 40 MG VIAL IVPUSH SCH ×2 (11:42→22:34)
[2018-03-07] MEDS: METOPROLOL TARTRATE 50 MG TABLET (FP) PO SCH (11:45)
--- NOTE | 2018-03-07 13:00 | PN ---
Progress Note, Physician Chief Complaint: patient seen and examined sleeping in bed ng tube feeds s/p prbc 2 units h/h improved gi consult appreciated - Current Medication List Current Medications: Active Medications Acetaminophen (Ofirmev Injection -) 1,000 mg IVPB Q6H PRN PRN Reason: FEVER Last Admin: 03/03/18 02:14 Dose: 1,000 mg Albuterol/Ipratropium (Duoneb -) 1 amp NEB RQID [facility] Last Admin: 03/07/18 11:40 Dose: 1 amp Ascorbic Acid (Vitamin C Oral Solution -) 500 mg PO DAILY [facility] Last Admin: 03/07/18 11:34 Dose: 500 mg Bacitracin (Bacitracin -) 1 applic TP BID [facility] Last Admin: 03/06/18 22:33 Dose: 1 applic Carbamazepine (Tegretol -) 100 mg PO TID [facility] Last Admin: 03/07/18 06:14 Dose: 100 mg Folic Acid (Folic Acid -) 1 mg PO DAILY [facility] Last Admin: 03/07/18 11:35 Dose: 1 mg Hydralazine HCl (Apresoline -) 10 mg PO TID [facility] Last Admin: 03/07/18 06:14 Dose: 10 mg Sodium Chloride (Normal Saline -) 1,000 mls @ 100 mls/hr IV ASDIR [facility] Last Admin: 03/07/18 11:32 Dose: 100 mls/hr Piperacillin Sod/Tazobactam (Sod 3.375 gm/ Dextrose) 50 mls @ 100 mls/hr IVPB Q8H-IV [facility]; Protocol Last Admin: 03/07/18 11:33 Dose: 100 mls/hr Levothyroxine Sodium (Synthroid -) 112 mcg PO DAILY@0700 [facility] Last Admin: 03/07/18 06:14 Dose: 112 mcg Loratadine (Claritin -) 10 mg PO DAILY [facility] Last Admin: 03/07/18 11:35 Dose: 10 mg Metoprolol Tartrate (Lopressor -) 25 mg PO BID [facility] Mirtazapine (Remeron -) 7.5 mg PO HS [facility] Last Admin: 03/06/18 22:31 Dose: 7.5 mg Pantoprazole Sodium (Protonix Iv) 40 mg IVPUSH BID [facility] Last Admin: 03/07/18 11:42 Dose: 40 mg Polyethylene Glycol (Miralax (For Daily Use) -) 17 gm NGT TID [facility] Last Admin: 03/07/18 05:53 Dose: Not Given Sertraline HCl (Zoloft -) 50 mg PO DAILY [facility] Last Admin: 03/07/18 11:33 Dose: 50 mg - Objective Vital Signs: Vital Signs Temperature 98.2 F 03/07/18 11:29 Pulse Rate 65 03/07/18 11:29 Respiratory Rate 14 03/07/18 11:39 Blood Pressure 107/65 03/07/18 11:29 O2 Sat by Pulse Oximetry (%) 95 03/07/18 11:39 Constitutional: Yes: Calm Neck: Yes: Other (trach) Cardiovascular: Yes: Regular Rate and Rhythm, S1, S2 Respiratory: Yes: Mechanically Ventilated Gastrointestinal: Yes: Normal Bowel Sounds, Soft Genitourinary: Yes: Perera Present Neurological: Yes: Pre-Existing Deficit Labs: CBC, BMP 03/07/18 06:48 03/07/18 06:48 INR, PTT INR 1.19 (0.83-1.09) H 03/05/18 15:10 Fibrinogen > 500.0 mg/dL (238-498) H 02/27/18 05:08 Problem List - Problems (1) Anemia Assessment/Plan: s/p prbc gi consult noted ppi heme on board Code(s): D64.9 - ANEMIA, UNSPECIFIED Qualifiers: Other causes of anemia: other cause, not classified (2) Altered mental status Assessment/Plan: toxic metabolic encephalopathy most likely secondary to UTI- improving chronic indwelling perera iv abx zosyn Code(s): R41.82 - ALTERED MENTAL STATUS, UNSPECIFIED (3) Depression Assessment/Plan: remeron and zoloft Code(s): F32.9 - MAJOR DEPRESSIVE DISORDER, SINGLE EPISODE, UNSPECIFIED (4) Decubital ulcer Assessment/Plan: frequent turn and position dr jeffries consult saw patient - consult appreciated for vancomycin stopped Code(s): L89.90 - PRESSURE ULCER OF UNSPECIFIED SITE, UNSPECIFIED STAGE Qualifiers: Pressure injury location: unspecified location Pressure injury stage: unspecified pressure injury stage Qualified Code(s): L89.90 - Pressure ulcer of unspecified site, unspecified stage (5) Hypothyroid Assessment/Plan: synthroid dose increase based on tsh now dose is 112mcg from 100mcg Code(s): E03.9 - HYPOTHYROIDISM, UNSPECIFIED (6) HTN (hypertension) Assessment/Plan: continue current medications Code(s): I10 - ESSENTIAL (PRIMARY) HYPERTENSION (7) Hx of multiple sclerosis Assessment/Plan: vent support possible weaning of vent if ok with pulm enteral feeds via ng tube for now will hold off on po for now Code(s): Z86.69 - PERSONAL HISTORY OF DIS OF THE NERVOUS SYS AND SENSE ORGANS
--- NOTE | 2018-03-07 13:43 | PN ---
Progress Note, Physician History of Present Illness: PULMONARY AWAKE,COMFORTABLE ON VENT SUPPORT AC MODE,-RESP DISTRESS - Current Medication List Current Medications: Active Medications Acetaminophen (Ofirmev Injection -) 1,000 mg IVPB Q6H PRN PRN Reason: FEVER Last Admin: 03/03/18 02:14 Dose: 1,000 mg Albuterol/Ipratropium (Duoneb -) 1 amp NEB RQID [facility] Last Admin: 03/07/18 11:40 Dose: 1 amp Ascorbic Acid (Vitamin C Oral Solution -) 500 mg PO DAILY [facility] Last Admin: 03/07/18 11:34 Dose: 500 mg Bacitracin (Bacitracin -) 1 applic TP BID [facility] Last Admin: 03/06/18 22:33 Dose: 1 applic Carbamazepine (Tegretol -) 100 mg PO TID [facility] Last Admin: 03/07/18 06:14 Dose: 100 mg Folic Acid (Folic Acid -) 1 mg PO DAILY [facility] Last Admin: 03/07/18 11:35 Dose: 1 mg Hydralazine HCl (Apresoline -) 10 mg PO TID [facility] Last Admin: 03/07/18 06:14 Dose: 10 mg Sodium Chloride (Normal Saline -) 1,000 mls @ 100 mls/hr IV ASDIR [facility] Last Admin: 03/07/18 11:32 Dose: 100 mls/hr Piperacillin Sod/Tazobactam (Sod 3.375 gm/ Dextrose) 50 mls @ 100 mls/hr IVPB Q8H-IV [facility]; Protocol Last Admin: 03/07/18 11:33 Dose: 100 mls/hr Levothyroxine Sodium (Synthroid -) 112 mcg PO DAILY@0700 [facility] Last Admin: 03/07/18 06:14 Dose: 112 mcg Loratadine (Claritin -) 10 mg PO DAILY [facility] Last Admin: 03/07/18 11:35 Dose: 10 mg Metoprolol Tartrate (Lopressor -) 25 mg PO BID [facility] Mirtazapine (Remeron -) 7.5 mg PO HS [facility] Last Admin: 03/06/18 22:31 Dose: 7.5 mg Pantoprazole Sodium (Protonix Iv) 40 mg IVPUSH BID [facility] Last Admin: 03/07/18 11:42 Dose: 40 mg Polyethylene Glycol (Miralax (For Daily Use) -) 17 gm NGT TID [facility] Last Admin: 03/07/18 05:53 Dose: Not Given Sertraline HCl (Zoloft -) 50 mg PO DAILY [facility] Last Admin: 03/07/18 11:33 Dose: 50 mg - Objective Vital Signs: Vital Signs Temperature 98.2 F 03/07/18 11:29 Pulse Rate 65 03/07/18 11:29 Respiratory Rate 14 03/07/18 11:39 Blood Pressure 107/65 03/07/18 11:29 O2 Sat by Pulse Oximetry (%) 95 03/07/18 11:39 Constitutional: Yes: Well Nourished, Moderate Distress Eyes: Yes: WNL HENT: Yes: WNL Neck: Yes: Supple (TRACH) Cardiovascular: Yes: Regular Rate and Rhythm, S1, S2 Respiratory: Yes: Diminished, Rhonchi (FEW SCATTERED RHONCHI) Gastrointestinal: Yes: Normal Bowel Sounds, Soft Extremities: Yes: WNL Edema: No Labs: CBC, BMP 03/07/18 06:48 03/07/18 06:48 INR, PTT INR 1.19 (0.83-1.09) H 03/05/18 15:10 Fibrinogen > 500.0 mg/dL (238-498) H 02/27/18 05:08 Assessment/Plan A/P Acute on Chronic Hypoxic and Hypercapneic Respiratory Failure Pneumonia UTI Sepsis Multiple Sclerosis Functional Quadriplegia - antibiotics per ID - monitor urine output, creatinine - placed on CPAP/PS - taper Fio2 to keep Spo2 >90% - can try trach collar when mental status improved - enteral feeds - DVT/GI prophylaxis Problem List - Problems (1) Acute on chronic respiratory failure with hypoxia and hypercapnia Code(s): J96.21 - ACUTE AND CHRONIC RESPIRATORY FAILURE WITH HYPOXIA; J96.22 - ACUTE AND CHRONIC RESPIRATORY FAILURE WITH HYPERCAPNIA (2) Urinary tract infection Code(s): N39.0 - URINARY TRACT INFECTION, SITE NOT SPECIFIED Qualifiers: Urinary tract infection type: site unspecified Hematuria presence: with hematuria Qualified Code(s): N39.0 - Urinary tract infection, site not specified; R31.9 - Hematuria, unspecified (3) Sepsis Code(s): A41.9 - SEPSIS, UNSPECIFIED ORGANISM (4) Decubital ulcer Code(s): L89.90 - PRESSURE ULCER OF UNSPECIFIED SITE, UNSPECIFIED STAGE Qualifiers: Pressure injury location: unspecified location Pressure injury stage: unspecified pressure injury stage Qualified Code(s): L89.90 - Pressure ulcer of unspecified site, unspecified stage (5) Multiple sclerosis Code(s): G35 - MULTIPLE SCLEROSIS (6) Functional quadriplegia Code(s): R53.2 - FUNCTIONAL QUADRIPLEGIA
[2018-03-07] MEDS: METOPROLOL TARTRATE 25 MG TABLET (FP) PO SCH (22:33)
[2018-03-07] MEDS: MIRTAZAPINE 15 MG TABLET (FP) PO SCH (22:34)
[2018-03-08] MEDS ORDERED: DEXTROSE 5%-WATER - 50 ML IVPB ONE ×3 (02:46→19:03)
[2018-03-08] MEDS ORDERED: PIPERACILLIN/TAZOBACTAM 3.375 GM VIAL IVPB ONE ×3 (02:46→19:03)
[2018-03-08] MEDS: PIPERACILLIN/TAZOB 3.375 GM 3.375 GM in DEXTROSE 5%-WATER - 50 ML IVPB SCH ×3 (02:50→19:08)
[2018-03-08] MEDS: LEVOTHYROXINE NA 112 MCG TABLET (FP) PO SCH (06:35)
[2018-03-08] MEDS: carBAMazepine 100 MG TAB.CHEW PO SCH ×3 (06:35→21:54)
[2018-03-08] MEDS: hydrALAZINE HCL 10 MG TABLET PO SCH ×3 (06:35→21:54)
[2018-03-08 07:29] LABS: BASO % 0.5 % (0-2.0); EOS % 1.7 % (0-4.5); HEMATOCRIT 30.8 % (32.4-45.2); HEMOGLOBIN 10.2 GM/dL (10.7-15.3); LYMPH % 10.1 % (8-40); MCH 30.6 pg (25.7-33.7); MCHC 33.1 g/dl (32.0-36.0); MEAN CELL VOLUME 92.5 fl (80-96); MEAN PLT VOLUME 7.9 fl (7.5-11.1); MONO % 9.6 % (3.8-10.2); NEUT % 78.1 % (42.8-82.8); PLATELET COUNT 524 K/MM3 (134-434); RBC 3.33 M/mm3 (3.60-5.2); RDW 16.8 % (11.6-15.6); WHITE BLOOD COUNT 9.5 K/mm3 (4.0-10.0)
[2018-03-08 07:57] LABS: ALBUMIN 2.2 g/dl (3.4-5.0); ALK PHOS 161 U/L (45-117); ANION GAP 5 MMOL/L (8-16); BILIRUBIN,TOTAL 0.4 mg/dL (0.2-1); BLOOD UREA NITROGEN 22 mg/dL (7-18); CALCIUM 8.7 mg/dL (8.5-10.1); CHLORIDE 108 mmol/L (98-107); CO2 26 mmol/L (21-32); CREATININE 0.5 mg/dL (0.55-1.3); GLUCOSE,RANDOM 112 mg/dL (74-106); POTASSIUM 4.2 mmol/L (3.5-5.1); SGOT/AST 19 U/L (15-37); SGPT/ALT 24 U/L (13-61); SODIUM 140 mmol/L (136-145)
[2018-03-08] MEDS: ALBUTEROL SO4 2.5/IPRATROPIUM 0.5 INH SOL 3 ML VIAL.NEB. NEB SCH ×4 (08:15→20:21)
--- NOTE | 2018-03-08 10:45 | PN ---
Progress Note, Physician Chief Complaint: UTI R/O sepsis secondary to UTI Pneumonia Toxic metabolic encephalopathy- improved Neurogenic bladder Decubitus ulcer MS History of Present Illness: NAD mental status improving stool OB positive Seen by GI abd/pelvis CT unremarkable - Current Medication List Current Medications: Active Medications Acetaminophen (Ofirmev Injection -) 1,000 mg IVPB Q6H PRN PRN Reason: FEVER Last Admin: 03/03/18 02:14 Dose: 1,000 mg Albuterol/Ipratropium (Duoneb -) 1 amp NEB RQID [facility] Last Admin: 03/08/18 08:15 Dose: 1 amp Ascorbic Acid (Vitamin C Oral Solution -) 500 mg PO DAILY [facility] Last Admin: 03/07/18 11:34 Dose: 500 mg Bacitracin (Bacitracin -) 1 applic TP BID [facility] Last Admin: 03/07/18 22:33 Dose: 1 applic Carbamazepine (Tegretol -) 100 mg PO TID [facility] Last Admin: 03/08/18 06:35 Dose: 100 mg Folic Acid (Folic Acid -) 1 mg PO DAILY [facility] Last Admin: 03/07/18 11:35 Dose: 1 mg Hydralazine HCl (Apresoline -) 10 mg PO TID [facility] Last Admin: 03/08/18 06:35 Dose: 10 mg Sodium Chloride (Normal Saline -) 1,000 mls @ 100 mls/hr IV ASDIR [facility] Last Admin: 03/07/18 22:43 Dose: 100 mls/hr Piperacillin Sod/Tazobactam (Sod 3.375 gm/ Dextrose) 50 mls @ 100 mls/hr IVPB Q8H-IV [facility]; Protocol Last Admin: 03/08/18 02:50 Dose: 100 mls/hr Levothyroxine Sodium (Synthroid -) 112 mcg PO DAILY@0700 [facility] Last Admin: 03/08/18 06:35 Dose: 112 mcg Loratadine (Claritin -) 10 mg PO DAILY [facility] Last Admin: 03/07/18 11:35 Dose: 10 mg Metoprolol Tartrate (Lopressor -) 25 mg PO BID [facility] Last Admin: 03/07/18 22:33 Dose: Not Given Mirtazapine (Remeron -) 7.5 mg PO HS [facility] Last Admin: 03/07/18 22:34 Dose: 7.5 mg Pantoprazole Sodium (Protonix Iv) 40 mg IVPUSH BID [facility] Last Admin: 03/07/18 22:34 Dose: 40 mg Sertraline HCl (Zoloft -) 50 mg PO DAILY [facility] Last Admin: 03/07/18 11:33 Dose: 50 mg - Objective Vital Signs: Vital Signs Temperature 98.2 F 03/08/18 06:00 Pulse Rate 62 03/08/18 08:19 Respiratory Rate 14 03/08/18 08:19 Blood Pressure 130/77 03/08/18 06:00 O2 Sat by Pulse Oximetry (%) 95 03/08/18 08:19 Constitutional: Yes: No Distress, Calm, Cachectic Cardiovascular: Yes: Regular Rate and Rhythm Respiratory: Yes: Mechanically Ventilated, Rhonchi Gastrointestinal: Yes: Normal Bowel Sounds, Soft Musculoskeletal: Yes: Muscle Weakness Extremities: Yes: WNL Edema: No Peripheral Pulses WNL: Yes Neurological: Yes: Alert, Pre-Existing Deficit Psychiatric: Yes: Alert Labs: CBC, BMP 03/08/18 06:30 03/08/18 06:30 INR, PTT INR 1.19 (0.83-1.09) H 03/05/18 15:10 Fibrinogen > 500.0 mg/dL (238-498) H 02/27/18 05:08 Problem List - Problems (1) Acute on chronic respiratory failure with hypoxia and hypercapnia Assessment/Plan: -pulmonary on board -mechanical vent -wean as tolerated Code(s): J96.21 - ACUTE AND CHRONIC RESPIRATORY FAILURE WITH HYPOXIA; J96.22 - ACUTE AND CHRONIC RESPIRATORY FAILURE WITH HYPERCAPNIA (2) Decubital ulcer Code(s): L89.90 - PRESSURE ULCER OF UNSPECIFIED SITE, UNSPECIFIED STAGE Qualifiers: Pressure injury location: unspecified location Pressure injury stage: unspecified pressure injury stage Qualified Code(s): L89.90 - Pressure ulcer of unspecified site, unspecified stage (3) Malnutrition Assessment/Plan: -2/2 to poor oral intake -Is on tube feeds via NGT -Prosource Code(s): E46 - UNSPECIFIED PROTEIN-CALORIE MALNUTRITION Qualifiers: Malnutrition type: protein-calorie malnutrition (4) Presence of intrathecal baclofen pump Code(s): Z98.89 - OTHER SPECIFIED POSTPROCEDURAL STATES * DO NOT USE * (5) Sacral decubitus ulcer, stage IV Code(s): L89.154 - PRESSURE ULCER OF SACRAL REGION, STAGE 4 (6) Hx of multiple sclerosis Code(s): Z86.69 - PERSONAL HISTORY OF DIS OF THE NERVOUS SYS AND SENSE ORGANS (7) Metabolic encephalopathy Assessment/Plan: -improving Code(s): G93.41 - METABOLIC ENCEPHALOPATHY (8) Multiple drug resistant organism (MDRO) culture positive Code(s): Z16.24 - RESISTANCE TO MULTIPLE ANTIBIOTICS (9) Anemia Assessment/Plan: -H/H stable -GI consult -Stool OB positive -monitor trend Code(s): D64.9 - ANEMIA, UNSPECIFIED Qualifiers: Other causes of anemia: other cause, not classified (10) Altered mental status Assessment/Plan: -2/2 to metabolic encephalopathy Code(s): R41.82 - ALTERED MENTAL STATUS, UNSPECIFIED (11) Sepsis Assessment/Plan: -Seen by ID -On IV abx -afebrile -no leukocytosis Code(s): A41.9 - SEPSIS, UNSPECIFIED ORGANISM Assessment/Plan see problem list
[2018-03-08] MEDS ORDERED: PT OWN MED DRAWER 7, Y5N ONE (10:56)
[2018-03-08] MEDS: PANTOPRAZOLE SODIUM 40 MG VIAL IVPUSH SCH ×2 (11:04→21:54)
[2018-03-08] MEDS: SERTRALINE HCL 50 MG TABLET (FP) PO SCH (11:05)
[2018-03-08] MEDS: LORATADINE 10 MG TABLET PO SCH (11:05)
[2018-03-08] MEDS: FOLIC ACID 1 MG TABLET (FP) PO SCH (11:05)
[2018-03-08] MEDS: METOPROLOL TARTRATE 25 MG TABLET (FP) PO SCH ×2 (11:05→21:55)
[2018-03-08] MEDS: MULTIVIT-MINERALS ORAL LIQUID PO SCH (11:05)
[2018-03-08] MEDS: ASCORBIC ACID 500 MG/5 ML UNIT DOSE CUP PO SCH (11:06)
--- NOTE | 2018-03-08 12:16 | PN ---
Progress Note (short form) - Note Progress Note: PULMONARY Vented on volume assist control. Mental status continues to improve. Vital Signs Period Temp Pulse Resp BP Sys/Morillo Pulse Ox Last 24 Hr 97.8 F-98.6 F 59-80 14-20 110-137/62-77 95-96 Gen: vented, awake Heart: RRR Lung: decresed breath sounds at the bases Abd: soft, nontender Ext: no edema CBC, BMP 03/08/18 06:30 03/08/18 06:30 Active Medications Acetaminophen (Ofirmev Injection -) 1,000 mg IVPB Q6H PRN PRN Reason: FEVER Last Admin: 03/03/18 02:14 Dose: 1,000 mg Albuterol/Ipratropium (Duoneb -) 1 amp NEB RQID [facility] Last Admin: 03/08/18 08:15 Dose: 1 amp Ascorbic Acid (Vitamin C Oral Solution -) 500 mg PO DAILY [facility] Last Admin: 03/08/18 11:06 Dose: 500 mg Bacitracin (Bacitracin -) 1 applic TP BID [facility] Last Admin: 03/07/18 22:33 Dose: 1 applic Carbamazepine (Tegretol -) 100 mg PO TID [facility] Last Admin: 03/08/18 06:35 Dose: 100 mg Ferrous Sulfate (Feosol) 300 mg GT DAILY [facility] Folic Acid (Folic Acid -) 1 mg PO DAILY [facility] Last Admin: 03/08/18 11:05 Dose: 1 mg Hydralazine HCl (Apresoline -) 10 mg PO TID [facility] Last Admin: 03/08/18 06:35 Dose: 10 mg Sodium Chloride (Normal Saline -) 1,000 mls @ 100 mls/hr IV ASDIR [facility] Last Admin: 03/07/18 22:43 Dose: 100 mls/hr Piperacillin Sod/Tazobactam (Sod 3.375 gm/ Dextrose) 50 mls @ 100 mls/hr IVPB Q8H-IV [facility]; Protocol Last Admin: 03/08/18 11:04 Dose: 100 mls/hr Levothyroxine Sodium (Synthroid -) 112 mcg PO DAILY@0700 [facility] Last Admin: 03/08/18 06:35 Dose: 112 mcg Loratadine (Claritin -) 10 mg PO DAILY [facility] Last Admin: 03/08/18 11:05 Dose: 10 mg Metoprolol Tartrate (Lopressor -) 25 mg PO BID [facility] Last Admin: 03/08/18 11:05 Dose: 25 mg Mirtazapine (Remeron -) 7.5 mg PO HS [facility] Last Admin: 03/07/18 22:34 Dose: 7.5 mg Pantoprazole Sodium (Protonix Iv) 40 mg IVPUSH BID [facility] Last Admin: 03/08/18 11:04 Dose: 40 mg Sertraline HCl (Zoloft -) 50 mg PO DAILY [facility] Last Admin: 03/08/18 11:05 Dose: 50 mg A/P Acute on Chronic Hypoxic and Hypercapneic Respiratory Failure Pneumonia UTI Sepsis Multiple Sclerosis Functional Quadriplegia - continue antibiotics per ID - monitor urine output, creatinine - placed on SIMV, wean as tolerated - taper Fio2 to keep Spo2 >90% - can try trach collar if tolerating CPAP/PS - enteral feeds - DVT/GI prophylaxis Problem List - Problems (1) Acute on chronic respiratory failure with hypoxia and hypercapnia Code(s): J96.21 - ACUTE AND CHRONIC RESPIRATORY FAILURE WITH HYPOXIA; J96.22 - ACUTE AND CHRONIC RESPIRATORY FAILURE WITH HYPERCAPNIA (2) Urinary tract infection Code(s): N39.0 - URINARY TRACT INFECTION, SITE NOT SPECIFIED Qualifiers: Urinary tract infection type: site unspecified Hematuria presence: with hematuria Qualified Code(s): N39.0 - Urinary tract infection, site not specified; R31.9 - Hematuria, unspecified (3) Sepsis Code(s): A41.9 - SEPSIS, UNSPECIFIED ORGANISM (4) Decubital ulcer Code(s): L89.90 - PRESSURE ULCER OF UNSPECIFIED SITE, UNSPECIFIED STAGE Qualifiers: Pressure injury location: unspecified location Pressure injury stage: unspecified pressure injury stage Qualified Code(s): L89.90 - Pressure ulcer of unspecified site, unspecified stage (5) Multiple sclerosis Code(s): G35 - MULTIPLE SCLEROSIS (6) Functional quadriplegia Code(s): R53.2 - FUNCTIONAL QUADRIPLEGIA
[2018-03-08] MEDS: SODIUM CHLORIDE 1,000 ML IV SCH ×2 (12:18→22:03)
[2018-03-08] MEDS: BACITRACIN 15 GM TUBE TOPICAL OINTMENT TP SCH (21:53)
[2018-03-08] MEDS: MIRTAZAPINE 15 MG TABLET (FP) PO SCH (21:55)
[2018-03-09] MEDS ORDERED: PIPERACILLIN/TAZOBACTAM 3.375 GM VIAL IVPB ONE ×2 (02:00→10:22)
[2018-03-09] MEDS ORDERED: DEXTROSE 5%-WATER - 50 ML IVPB ONE ×2 (02:00→10:23)
[2018-03-09] MEDS: PIPERACILLIN/TAZOB 3.375 GM 3.375 GM in DEXTROSE 5%-WATER - 50 ML IVPB SCH ×2 (02:34→10:28)
[2018-03-09] MEDS: carBAMazepine 100 MG TAB.CHEW PO SCH ×3 (06:38→22:05)
[2018-03-09] MEDS: LEVOTHYROXINE NA 112 MCG TABLET (FP) PO SCH (06:38)
[2018-03-09] MEDS: hydrALAZINE HCL 10 MG TABLET PO SCH ×3 (06:38→22:05)
[2018-03-09] MEDS: ALBUTEROL SO4 2.5/IPRATROPIUM 0.5 INH SOL 3 ML VIAL.NEB. NEB SCH ×4 (07:42→21:18)
[2018-03-09 07:48] LABS: BASO % 0.6 % (0-2.0); EOS % 2.4 % (0-4.5); HEMATOCRIT 27.7 % (32.4-45.2); HEMOGLOBIN 9.1 GM/dL (10.7-15.3); LYMPH % 10.6 % (8-40); MCH 30.9 pg (25.7-33.7); MCHC 32.9 g/dl (32.0-36.0); MEAN CELL VOLUME 93.9 fl (80-96); MEAN PLT VOLUME 7.4 fl (7.5-11.1); MONO % 11.5 % (3.8-10.2); NEUT % 74.9 % (42.8-82.8); PLATELET COUNT 498 K/MM3 (134-434); RBC 2.95 M/mm3 (3.60-5.2); RDW 16.2 % (11.6-15.6); WHITE BLOOD COUNT 7.9 K/mm3 (4.0-10.0)
[2018-03-09 08:25] LABS: ALK PHOS 150 U/L (45-117); ANION GAP 5 MMOL/L (8-16); BILIRUBIN,TOTAL 0.3 mg/dL (0.2-1); BLOOD UREA NITROGEN 26 mg/dL (7-18); CALCIUM 8.3 mg/dL (8.5-10.1); CHLORIDE 108 mmol/L (98-107); CO2 27 mmol/L (21-32); CREATININE 0.4 mg/dL (0.55-1.3); GLUCOSE,RANDOM 110 mg/dL (74-106); POTASSIUM 4.1 mmol/L (3.5-5.1); SGOT/AST 17 U/L (15-37); SGPT/ALT 22 U/L (13-61); SODIUM 140 mmol/L (136-145); TOT PROT 6.4 g/dl (6.4-8.2)
[2018-03-09] MEDS ORDERED: PT OWN MED DRAWER 7, Y5N ONE ×3 (10:22→22:04)
[2018-03-09] MEDS: FOLIC ACID 1 MG TABLET (FP) PO SCH (10:28)
[2018-03-09] MEDS: PANTOPRAZOLE SODIUM 40 MG VIAL IVPUSH SCH ×2 (10:28→22:06)
[2018-03-09] MEDS: METOPROLOL TARTRATE 25 MG TABLET (FP) PO SCH ×2 (10:28→22:05)
[2018-03-09] MEDS: SERTRALINE HCL 50 MG TABLET (FP) PO SCH (10:28)
[2018-03-09] MEDS: FERROUS SO4 300 MG/5 ML ORAL SOLN UNIT DOSE CUPS GT SCH (10:28)
[2018-03-09] MEDS: LORATADINE 10 MG TABLET PO SCH (10:28)
[2018-03-09] MEDS: ASCORBIC ACID 500 MG/5 ML UNIT DOSE CUP PO SCH (10:29)
[2018-03-09] MEDS: MULTIVIT-MINERALS ORAL LIQUID PO SCH (10:29)
[2018-03-09] MEDS: BACITRACIN 15 GM TUBE TOPICAL OINTMENT TP SCH ×3 (10:30→22:06)
--- NOTE | 2018-03-09 12:17 | PN ---
Progress Note, Physician Chief Complaint: UTI R/O sepsis secondary to UTI Pneumonia Toxic metabolic encephalopathy- improved Neurogenic bladder Decubitus ulcer MS History of Present Illness: NAD mental status improving stool OB positive Seen by GI abd/pelvis CT unremarkable Holding H/H well Now has diarrhea Cdiff PCR pending - Current Medication List Current Medications: Active Medications Acetaminophen (Ofirmev Injection -) 1,000 mg IVPB Q6H PRN PRN Reason: FEVER Last Admin: 03/03/18 02:14 Dose: 1,000 mg Albuterol/Ipratropium (Duoneb -) 1 amp NEB RQID [facility] Last Admin: 03/09/18 11:44 Dose: 1 amp Ascorbic Acid (Vitamin C Oral Solution -) 500 mg PO DAILY [facility] Last Admin: 03/09/18 10:29 Dose: 500 mg Bacitracin (Bacitracin -) 1 applic TP BID [facility] Last Admin: 03/09/18 10:46 Dose: 1 applic Carbamazepine (Tegretol -) 100 mg PO TID [facility] Last Admin: 03/09/18 06:38 Dose: 100 mg Ferrous Sulfate (Feosol) 300 mg GT DAILY [facility] Last Admin: 03/09/18 10:28 Dose: 300 mg Folic Acid (Folic Acid -) 1 mg PO DAILY [facility] Last Admin: 03/09/18 10:28 Dose: 1 mg Hydralazine HCl (Apresoline -) 10 mg PO TID [facility] Last Admin: 03/09/18 06:38 Dose: 10 mg Sodium Chloride (Normal Saline -) 1,000 mls @ 100 mls/hr IV ASDIR [facility] Last Admin: 03/08/18 22:03 Dose: 100 mls/hr Piperacillin Sod/Tazobactam (Sod 3.375 gm/ Dextrose) 50 mls @ 100 mls/hr IVPB Q8H-IV [facility]ATH[facility]; Protocol Last Admin: 03/09/18 10:28 Dose: 100 mls/hr Lactobacillus Acidophilus (Bacid -) 1 tab PO BID [facility] Levothyroxine Sodium (Synthroid -) 112 mcg PO DAILY@0700 [facility] Last Admin: 03/09/18 06:38 Dose: 112 mcg Loratadine (Claritin -) 10 mg PO DAILY [facility] Last Admin: 03/09/18 10:28 Dose: 10 mg Metoprolol Tartrate (Lopressor -) 25 mg PO BID [facility] Last Admin: 03/09/18 10:28 Dose: 25 mg Mirtazapine (Remeron -) 7.5 mg PO HS [facility] Last Admin: 03/08/18 21:55 Dose: 7.5 mg Pantoprazole Sodium (Protonix Iv) 40 mg IVPUSH BID [facility] Last Admin: 03/09/18 10:28 Dose: 40 mg Sertraline HCl (Zoloft -) 50 mg PO DAILY [facility] Last Admin: 03/09/18 10:28 Dose: 50 mg - Objective Vital Signs: Vital Signs Temperature 98.4 F 03/09/18 06:00 Pulse Rate 77 03/09/18 11:00 Respiratory Rate 16 03/09/18 11:00 Blood Pressure 101/62 03/09/18 06:00 O2 Sat by Pulse Oximetry (%) 98 03/09/18 11:00 Constitutional: Yes: Well Nourished, No Distress, Calm Cardiovascular: Yes: Regular Rate and Rhythm Respiratory: Yes: Mechanically Ventilated, Rhonchi Gastrointestinal: Yes: Normal Bowel Sounds, Soft Musculoskeletal: Yes: Muscle Weakness Edema: No Peripheral Pulses WNL: Yes Neurological: Yes: Alert, Pre-Existing Deficit Psychiatric: Yes: Alert Labs: CBC, BMP 03/09/18 07:35 03/09/18 07:35 INR, PTT INR 1.19 (0.83-1.09) H 03/05/18 15:10 Fibrinogen > 500.0 mg/dL (238-498) H 02/27/18 05:08 Problem List - Problems (1) Acute on chronic respiratory failure with hypoxia and hypercapnia Assessment/Plan: -pulmonary on board -mechanical vent -wean as tolerated Code(s): J96.21 - ACUTE AND CHRONIC RESPIRATORY FAILURE WITH HYPOXIA; J96.22 - ACUTE AND CHRONIC RESPIRATORY FAILURE WITH HYPERCAPNIA (2) Decubital ulcer Code(s): L89.90 - PRESSURE ULCER OF UNSPECIFIED SITE, UNSPECIFIED STAGE Qualifiers: Pressure injury location: unspecified location Pressure injury stage: unspecified pressure injury stage Qualified Code(s): L89.90 - Pressure ulcer of unspecified site, unspecified stage (3) Malnutrition Assessment/Plan: -2/2 to poor oral intake -Is on tube feeds via NGT -Prosource Code(s): E46 - UNSPECIFIED PROTEIN-CALORIE MALNUTRITION Qualifiers: Malnutrition type: protein-calorie malnutrition (4) Presence of intrathecal baclofen pump Code(s): Z98.89 - OTHER SPECIFIED POSTPROCEDURAL STATES * DO NOT USE * (5) Sacral decubitus ulcer, stage IV Code(s): L89.154 - PRESSURE ULCER OF SACRAL REGION, STAGE 4 (6) Hx of multiple sclerosis Code(s): Z86.69 - PERSONAL HISTORY OF DIS OF THE NERVOUS SYS AND SENSE ORGANS (7) Metabolic encephalopathy Assessment/Plan: -improving Code(s): G93.41 - METABOLIC ENCEPHALOPATHY (8) Multiple drug resistant organism (MDRO) culture positive Code(s): Z16.24 - RESISTANCE TO MULTIPLE ANTIBIOTICS (9) Anemia Assessment/Plan: -H/H stable -GI consult -Stool OB positive -monitor trend Code(s): D64.9 - ANEMIA, UNSPECIFIED Qualifiers: Other causes of anemia: other cause, not classified (10) Altered mental status Assessment/Plan: -2/2 to metabolic encephalopathy -much more awake now Code(s): R41.82 - ALTERED MENTAL STATUS, UNSPECIFIED (11) Sepsis Assessment/Plan: -Seen by ID -On IV abx -afebrile -no leukocytosis Code(s): A41.9 - SEPSIS, UNSPECIFIED ORGANISM Assessment/Plan see problem list
--- NOTE | 2018-03-09 12:24 | PN ---
Progress Note, Physician Chief Complaint: UTI R/O sepsis secondary to UTI Pneumonia Toxic metabolic encephalopathy- improved Neurogenic bladder Decubitus ulcer MS History of Present Illness: NAD mental status improving stool OB positive Seen by GI abd/pelvis CT unremarkable Holding H/H well Now has diarrhea Cdiff PCR pending - Current Medication List Current Medications: Active Medications Acetaminophen (Ofirmev Injection -) 1,000 mg IVPB Q6H PRN PRN Reason: FEVER Last Admin: 03/03/18 02:14 Dose: 1,000 mg Albuterol/Ipratropium (Duoneb -) 1 amp NEB RQID [facility] Last Admin: 03/09/18 11:44 Dose: 1 amp Ascorbic Acid (Vitamin C Oral Solution -) 500 mg PO DAILY [facility] Last Admin: 03/09/18 10:29 Dose: 500 mg Bacitracin (Bacitracin -) 1 applic TP BID [facility] Last Admin: 03/09/18 10:46 Dose: 1 applic Carbamazepine (Tegretol -) 100 mg PO TID [facility] Last Admin: 03/09/18 06:38 Dose: 100 mg Ferrous Sulfate (Feosol) 300 mg GT DAILY [facility] Last Admin: 03/09/18 10:28 Dose: 300 mg Folic Acid (Folic Acid -) 1 mg PO DAILY [facility] Last Admin: 03/09/18 10:28 Dose: 1 mg Hydralazine HCl (Apresoline -) 10 mg PO TID [facility] Last Admin: 03/09/18 06:38 Dose: 10 mg Sodium Chloride (Normal Saline -) 1,000 mls @ 100 mls/hr IV ASDIR [facility] Last Admin: 03/08/18 22:03 Dose: 100 mls/hr Lactobacillus Acidophilus (Bacid -) 1 tab PO BID [facility] Levothyroxine Sodium (Synthroid -) 112 mcg PO DAILY@0700 [facility] Last Admin: 03/09/18 06:38 Dose: 112 mcg Loratadine (Claritin -) 10 mg PO DAILY [facility] Last Admin: 03/09/18 10:28 Dose: 10 mg Metoprolol Tartrate (Lopressor -) 25 mg PO BID [facility] Last Admin: 03/09/18 10:28 Dose: 25 mg Mirtazapine (Remeron -) 7.5 mg PO HS [facility] Last Admin: 03/08/18 21:55 Dose: 7.5 mg Pantoprazole Sodium (Protonix Iv) 40 mg IVPUSH BID [facility] Last Admin: 03/09/18 10:28 Dose: 40 mg Sertraline HCl (Zoloft -) 50 mg PO DAILY [facility] Last Admin: 03/09/18 10:28 Dose: 50 mg - Objective Vital Signs: Vital Signs Temperature 98.4 F 03/09/18 06:00 Pulse Rate 77 03/09/18 11:00 Respiratory Rate 16 03/09/18 11:00 Blood Pressure 101/62 03/09/18 06:00 O2 Sat by Pulse Oximetry (%) 98 03/09/18 11:00 Constitutional: Yes: Well Nourished, No Distress, Calm Cardiovascular: Yes: Regular Rate and Rhythm Respiratory: Yes: Mechanically Ventilated, Rhonchi Gastrointestinal: Yes: Normal Bowel Sounds, Soft Musculoskeletal: Yes: WNL Extremities: Yes: WNL Edema: No Peripheral Pulses WNL: Yes Neurological: Yes: Alert, Pre-Existing Deficit Psychiatric: Yes: Alert Labs: CBC, BMP 03/09/18 07:35 03/09/18 07:35 INR, PTT INR 1.19 (0.83-1.09) H 03/05/18 15:10 Fibrinogen > 500.0 mg/dL (238-498) H 02/27/18 05:08 Problem List - Problems (1) Acute on chronic respiratory failure with hypoxia and hypercapnia Assessment/Plan: -pulmonary on board -mechanical vent -wean as tolerated -PMV trial today -PO trial Code(s): J96.21 - ACUTE AND CHRONIC RESPIRATORY FAILURE WITH HYPOXIA; J96.22 - ACUTE AND CHRONIC RESPIRATORY FAILURE WITH HYPERCAPNIA (2) Decubital ulcer Code(s): L89.90 - PRESSURE ULCER OF UNSPECIFIED SITE, UNSPECIFIED STAGE Qualifiers: Pressure injury location: unspecified location Pressure injury stage: unspecified pressure injury stage Qualified Code(s): L89.90 - Pressure ulcer of unspecified site, unspecified stage (3) Malnutrition Assessment/Plan: -2/2 to poor oral intake -Is on tube feeds via NGT -[employer]source Code(s): E46 - UNSPECIFIED PROTEIN-CALORIE MALNUTRITION Qualifiers: Malnutrition type: protein-calorie malnutrition (4) Presence of intrathecal baclofen pump Code(s): Z98.89 - OTHER SPECIFIED POSTPROCEDURAL STATES * DO NOT USE * (5) Sacral decubitus ulcer, stage IV Code(s): L89.154 - PRESSURE ULCER OF SACRAL REGION, STAGE 4 (6) Hx of multiple sclerosis Code(s): Z86.69 - PERSONAL HISTORY OF DIS OF THE NERVOUS SYS AND SENSE ORGANS (7) Metabolic encephalopathy Assessment/Plan: -improving Code(s): G93.41 - METABOLIC ENCEPHALOPATHY (8) Multiple drug resistant organism (MDRO) culture positive Code(s): Z16.24 - RESISTANCE TO MULTIPLE ANTIBIOTICS (9) Anemia Assessment/Plan: -H/H stable -GI consult -Stool OB positive -monitor trend Code(s): D64.9 - ANEMIA, UNSPECIFIED Qualifiers: Other causes of anemia: other cause, not classified (10) Altered mental status Assessment/Plan: -2/2 to metabolic encephalopathy -much more awake now Code(s): R41.82 - ALTERED MENTAL STATUS, UNSPECIFIED (11) Sepsis Assessment/Plan: -Seen by ID -d/c abx -afebrile -no leukocytosis Code(s): A41.9 - SEPSIS, UNSPECIFIED ORGANISM (12) Diarrhea Assessment/Plan: -d/c abx -Bacid BID -Cdiff pcr pending Code(s): R19.7 - DIARRHEA, UNSPECIFIED Assessment/Plan see problem list
--- NOTE | 2018-03-09 14:01 | PN ---
Progress Note, Physician History of Present Illness: pulmonary alert,on vent support ac mode ,comfortable - Current Medication List Current Medications: Active Medications Acetaminophen (Ofirmev Injection -) 1,000 mg IVPB Q6H PRN PRN Reason: FEVER Last Admin: 03/03/18 02:14 Dose: 1,000 mg Albuterol/Ipratropium (Duoneb -) 1 amp NEB RQID [facility] Last Admin: 03/09/18 11:44 Dose: 1 amp Ascorbic Acid (Vitamin C Oral Solution -) 500 mg PO DAILY [facility] Last Admin: 03/09/18 10:29 Dose: 500 mg Bacitracin (Bacitracin -) 1 applic TP BID [facility] Last Admin: 03/09/18 10:46 Dose: 1 applic Carbamazepine (Tegretol -) 100 mg PO TID [facility] Last Admin: 03/09/18 06:38 Dose: 100 mg Ferrous Sulfate (Feosol) 300 mg GT DAILY [facility] Last Admin: 03/09/18 10:28 Dose: 300 mg Folic Acid (Folic Acid -) 1 mg PO DAILY [facility] Last Admin: 03/09/18 10:28 Dose: 1 mg Hydralazine HCl (Apresoline -) 10 mg PO TID [facility] Last Admin: 03/09/18 06:38 Dose: 10 mg Sodium Chloride (Normal Saline -) 1,000 mls @ 100 mls/hr IV ASDIR [facility] Last Admin: 03/08/18 22:03 Dose: 100 mls/hr Lactobacillus Acidophilus (Bacid -) 1 tab PO BID [facility] Levothyroxine Sodium (Synthroid -) 112 mcg PO DAILY@0700 [facility] Last Admin: 03/09/18 06:38 Dose: 112 mcg Loratadine (Claritin -) 10 mg PO DAILY [facility] Last Admin: 03/09/18 10:28 Dose: 10 mg Metoprolol Tartrate (Lopressor -) 25 mg PO BID [facility] Last Admin: 03/09/18 10:28 Dose: 25 mg Mirtazapine (Remeron -) 7.5 mg PO HS [facility] Last Admin: 03/08/18 21:55 Dose: 7.5 mg Pantoprazole Sodium (Protonix Iv) 40 mg IVPUSH BID [facility] Last Admin: 03/09/18 10:28 Dose: 40 mg Sertraline HCl (Zoloft -) 50 mg PO DAILY [facility] Last Admin: 03/09/18 10:28 Dose: 50 mg - Objective Vital Signs: Vital Signs Temperature 98.4 F 03/09/18 06:00 Pulse Rate 77 03/09/18 11:00 Respiratory Rate 16 03/09/18 11:00 Blood Pressure 101/62 03/09/18 06:00 O2 Sat by Pulse Oximetry (%) 98 03/09/18 11:00 Constitutional: Yes: Well Nourished, Calm Eyes: Yes: WNL HENT: Yes: WNL Neck: Yes: Supple (trach) Cardiovascular: Yes: Regular Rate and Rhythm, S1, S2 Respiratory: Yes: Rhonchi (few scattered rhonchi) Gastrointestinal: Yes: Normal Bowel Sounds, Soft Extremities: Yes: WNL Edema: No Labs: CBC, BMP 03/09/18 07:35 03/09/18 07:35 INR, PTT INR 1.19 (0.83-1.09) H 03/05/18 15:10 Fibrinogen > 500.0 mg/dL (238-498) H 02/27/18 05:08 Assessment/Plan A/P Acute on Chronic Hypoxic and Hypercapneic Respiratory Failure Pneumonia UTI Sepsis Multiple Sclerosis Functional Quadriplegia - monitor urine output, creatinine - vent support,wean as tolerated - can try trach collar when mental status improved - enteral feeds - DVT/GI prophylaxis Problem List - Problems (1) Acute on chronic respiratory failure with hypoxia and hypercapnia Code(s): J96.21 - ACUTE AND CHRONIC RESPIRATORY FAILURE WITH HYPOXIA; J96.22 - ACUTE AND CHRONIC RESPIRATORY FAILURE WITH HYPERCAPNIA (2) Urinary tract infection Code(s): N39.0 - URINARY TRACT INFECTION, SITE NOT SPECIFIED Qualifiers: Urinary tract infection type: site unspecified Hematuria presence: with hematuria Qualified Code(s): N39.0 - Urinary tract infection, site not specified; R31.9 - Hematuria, unspecified (3) Sepsis Code(s): A41.9 - SEPSIS, UNSPECIFIED ORGANISM (4) Decubital ulcer Code(s): L89.90 - PRESSURE ULCER OF UNSPECIFIED SITE, UNSPECIFIED STAGE Qualifiers: Pressure injury location: unspecified location Pressure injury stage: unspecified pressure injury stage Qualified Code(s): L89.90 - Pressure ulcer of unspecified site, unspecified stage (5) Multiple sclerosis Code(s): G35 - MULTIPLE SCLEROSIS (6) Functional quadriplegia Code(s): R53.2 - FUNCTIONAL QUADRIPLEGIA
[2018-03-09] MEDS: LACTOBACILLUS ACIDOPHILUS 1 TABLET PO SCH ×2 (14:13→22:05)
[2018-03-09] MEDS: SODIUM CHLORIDE 1,000 ML IV SCH (14:19)
[2018-03-09] MEDS: MIRTAZAPINE 15 MG TABLET (FP) PO SCH (22:06)
[2018-03-09] MEDS: ACETAMINOPHEN 1000 MG/100 ML VIAL (NON FORMULARY) IVPB PRN (22:29)
[2018-03-10] MEDS: VANCOMYCIN 250 MG/5 ML ORAL SOLUTION PO SCH ×5 (00:21→23:05)
[2018-03-10] MEDS ORDERED: PT OWN MED DRAWER 7, Y5N ONE ×3 (05:35→13:00)
[2018-03-10] MEDS: hydrALAZINE HCL 10 MG TABLET PO SCH ×3 (05:41→22:26)
[2018-03-10] MEDS: carBAMazepine 100 MG TAB.CHEW PO SCH ×3 (05:41→22:26)
[2018-03-10] MEDS: LEVOTHYROXINE NA 112 MCG TABLET (FP) PO SCH (06:17)
[2018-03-10 06:32] LABS: BASO % 0.8 % (0-2.0); EOS % 3.1 % (0-4.5); HEMATOCRIT 29.5 % (32.4-45.2); HEMOGLOBIN 9.5 GM/dL (10.7-15.3); MCH 30.4 pg (25.7-33.7); MCHC 32.1 g/dl (32.0-36.0); MEAN CELL VOLUME 94.9 fl (80-96); MEAN PLT VOLUME 8.5 fl (7.5-11.1); MONO % 11.9 % (3.8-10.2); NEUT % 67.2 % (42.8-82.8); PLATELET COUNT 464 K/MM3 (134-434); RBC 3.11 M/mm3 (3.60-5.2); RDW 16.5 % (11.6-15.6); WHITE BLOOD COUNT 5.8 K/mm3 (4.0-10.0)
[2018-03-10 06:48] LABS: ALBUMIN 2.1 g/dl (3.4-5.0); ALK PHOS 157 U/L (45-117); ANION GAP 6 MMOL/L (8-16); BILIRUBIN,TOTAL 0.2 mg/dL (0.2-1); BLOOD UREA NITROGEN 30 mg/dL (7-18); CALCIUM 8.3 mg/dL (8.5-10.1); CHLORIDE 108 mmol/L (98-107); CO2 26 mmol/L (21-32); CREATININE 0.4 mg/dL (0.55-1.3); GLUCOSE,RANDOM 95 mg/dL (74-106); POTASSIUM 4.5 mmol/L (3.5-5.1); SGOT/AST 20 U/L (15-37); SGPT/ALT 24 U/L (13-61); SODIUM 140 mmol/L (136-145); TOT PROT 6.9 g/dl (6.4-8.2)
[2018-03-10] MEDS: ALBUTEROL SO4 2.5/IPRATROPIUM 0.5 INH SOL 3 ML VIAL.NEB. NEB SCH ×4 (07:30→20:52)
--- NOTE | 2018-03-10 09:06 | PN ---
Progress Note (short form) - Note Progress Note: Patient seen regarding several Pressure ulcers...POA Pressure Ulcers re-evaluated 03/09/2018 in presence of mother. Wound care nurse accompanied for this visit. Patient general health has taken to a down trend,Generalized weakness, related to Respiratory insufficiency, Patient is designated as ADL "Functional Quadriplegia" condition is severe and requires. Multiple Pressure ulcers Coccyx, Bilateral Ischial showing signs of Pressure injury.. Measurements. Bilateral Buttocks and Sacral/coccyx Charted in [employer] Measurements In Chart Max/EMR, Genet -wound showing erythema, No Odor, undermining present in Grade IV Right Buttock/Ischial decubitus , bone visible, Wound edges rolled. Sacral/coccyx Grade III injury with superficial skin necrosis Debridement : Instruments used #15 blade After cleaning with Betadine....all pressure injured areas were Debrided, removing non-Viable tissue, depth is different in all pressure injuries...recorded in EMR Plan : Chemical Enzyme ...Collagenase daily Patient on Low Pressure Mattress Nutrition : Via tube feeding Will continue to follow the progress Prognosis Poor
[2018-03-10] MEDS: FERROUS SO4 300 MG/5 ML ORAL SOLN UNIT DOSE CUPS GT SCH (10:20)
[2018-03-10] MEDS: METOPROLOL TARTRATE 25 MG TABLET (FP) PO SCH (10:20)
[2018-03-10] MEDS: LACTOBACILLUS ACIDOPHILUS 1 TABLET PO SCH ×2 (10:21→22:26)
[2018-03-10] MEDS: SERTRALINE HCL 50 MG TABLET (FP) PO SCH (10:21)
[2018-03-10] MEDS: ASCORBIC ACID 500 MG/5 ML UNIT DOSE CUP PO SCH (10:21)
[2018-03-10] MEDS: LORATADINE 10 MG TABLET PO SCH (10:21)
[2018-03-10] MEDS: FOLIC ACID 1 MG TABLET (FP) PO SCH (10:21)
[2018-03-10] MEDS: PANTOPRAZOLE SODIUM 40 MG VIAL IVPUSH SCH ×2 (10:21→22:25)
[2018-03-10] MEDS: MULTIVIT-MINERALS ORAL LIQUID PO SCH (10:22)
[2018-03-10] MEDS: BACITRACIN 15 GM TUBE TOPICAL OINTMENT TP SCH ×2 (10:22→22:27)
[2018-03-10] MEDS: SODIUM CHLORIDE 1,000 ML IV SCH (10:23)
[2018-03-10] MEDS: COLLAGENASE CLOSTRIDIUM HIST. 30 GRAMS TUBE TP SCH (10:23)
--- NOTE | 2018-03-10 11:25 | PN ---
Progress Note (short form) - Note Progress Note: PULMONARY Vented on volume assist control. Mental status continues to improve. Placed on SIMV RR 10. Vital Signs Period Temp Pulse Resp BP Sys/Morillo Pulse Ox Last 24 Hr 97.9 F 54-68 14-16 112-131/70-71 96-98 Gen: vented, awake Heart: RRR Lung: decresed breath sounds at the bases Abd: soft, nontender Ext: no edema CBC, BMP 03/10/18 05:00 03/10/18 05:00 Active Medications Albuterol/Ipratropium (Duoneb -) 1 amp NEB RQID [facility] Last Admin: 03/10/18 11:23 Dose: 1 amp Ascorbic Acid (Vitamin C Oral Solution -) 500 mg PO DAILY [facility] Last Admin: 03/10/18 10:21 Dose: 500 mg Bacitracin (Bacitracin -) 1 applic TP BID [facility] Last Admin: 03/10/18 10:22 Dose: 1 applic Carbamazepine (Tegretol -) 100 mg PO TID [facility] Last Admin: 03/10/18 05:41 Dose: 100 mg Collagenase (Santyl -) 1 applic TP DAILY [facility]; Protocol Last Admin: 03/10/18 10:23 Dose: 1 applic Ferrous Sulfate (Feosol) 300 mg GT DAILY [facility] Last Admin: 03/10/18 10:20 Dose: 300 mg Folic Acid (Folic Acid -) 1 mg PO DAILY [facility] Last Admin: 03/10/18 10:21 Dose: 1 mg Hydralazine HCl (Apresoline -) 10 mg PO TID [facility] Last Admin: 03/10/18 05:41 Dose: 10 mg Sodium Chloride (Normal Saline -) 1,000 mls @ 100 mls/hr IV ASDIR [facility] Last Admin: 03/10/18 10:23 Dose: 100 mls/hr Lactobacillus Acidophilus (Bacid -) 1 tab PO BID [facility] Last Admin: 03/10/18 10:21 Dose: 1 tab Levothyroxine Sodium (Synthroid -) 112 mcg PO DAILY@0700 [facility] Last Admin: 03/10/18 06:17 Dose: 112 mcg Loratadine (Claritin -) 10 mg PO DAILY [facility] Last Admin: 03/10/18 10:21 Dose: 10 mg Metoprolol Tartrate (Lopressor -) 25 mg PO BID [facility] Last Admin: 03/10/18 10:20 Dose: 25 mg Mirtazapine (Remeron -) 7.5 mg PO HS [facility] Last Admin: 03/09/18 22:06 Dose: 7.5 mg Pantoprazole Sodium (Protonix Iv) 40 mg IVPUSH BID [facility] Last Admin: 03/10/18 10:21 Dose: 40 mg Sertraline HCl (Zoloft -) 50 mg PO DAILY [facility] Last Admin: 03/10/18 10:21 Dose: 50 mg Vancomycin HCl (Vancomycin Oral Solution) 250 mg PO Q6HPO [facility] Last Admin: 03/10/18 05:41 Dose: 250 mg A/P Acute on Chronic Hypoxic and Hypercapneic Respiratory Failure Pneumonia UTI Sepsis Multiple Sclerosis Functional Quadriplegia - continue antibiotics per ID - monitor urine output, creatinine - placed on SIMV, wean as tolerated - taper Fio2 to keep Spo2 >90% - can try trach collar if tolerating SIMV - enteral feeds - DVT/GI prophylaxis Problem List - Problems (1) Acute on chronic respiratory failure with hypoxia and hypercapnia Code(s): J96.21 - ACUTE AND CHRONIC RESPIRATORY FAILURE WITH HYPOXIA; J96.22 - ACUTE AND CHRONIC RESPIRATORY FAILURE WITH HYPERCAPNIA (2) Urinary tract infection Code(s): N39.0 - URINARY TRACT INFECTION, SITE NOT SPECIFIED Qualifiers: Urinary tract infection type: site unspecified Hematuria presence: with hematuria Qualified Code(s): N39.0 - Urinary tract infection, site not specified; R31.9 - Hematuria, unspecified (3) Sepsis Code(s): A41.9 - SEPSIS, UNSPECIFIED ORGANISM (4) Decubital ulcer Code(s): L89.90 - PRESSURE ULCER OF UNSPECIFIED SITE, UNSPECIFIED STAGE Qualifiers: Pressure injury location: unspecified location Pressure injury stage: unspecified pressure injury stage Qualified Code(s): L89.90 - Pressure ulcer of unspecified site, unspecified stage (5) Multiple sclerosis Code(s): G35 - MULTIPLE SCLEROSIS (6) Functional quadriplegia Code(s): R53.2 - FUNCTIONAL QUADRIPLEGIA
--- NOTE | 2018-03-10 12:23 | PN ---
Progress Note, Physician Chief Complaint: patient seen and examined contact isolation for c diff rectal tube keeps getting displaced bc of hard stool mass - Current Medication List Current Medications: Active Medications Albuterol/Ipratropium (Duoneb -) 1 amp NEB RQID [facility] Last Admin: 03/10/18 11:23 Dose: 1 amp Ascorbic Acid (Vitamin C Oral Solution -) 500 mg PO DAILY [facility] Last Admin: 03/10/18 10:21 Dose: 500 mg Bacitracin (Bacitracin -) 1 applic TP BID [facility] Last Admin: 03/10/18 10:22 Dose: 1 applic Carbamazepine (Tegretol -) 100 mg PO TID [facility] Last Admin: 03/10/18 05:41 Dose: 100 mg Collagenase (Santyl -) 1 applic TP DAILY [facility]; Protocol Last Admin: 03/10/18 10:23 Dose: 1 applic Ferrous Sulfate (Feosol) 300 mg GT DAILY [facility] Last Admin: 03/10/18 10:20 Dose: 300 mg Folic Acid (Folic Acid -) 1 mg PO DAILY [facility] Last Admin: 03/10/18 10:21 Dose: 1 mg Hydralazine HCl (Apresoline -) 10 mg PO TID [facility] Last Admin: 03/10/18 05:41 Dose: 10 mg Sodium Chloride (Normal Saline -) 1,000 mls @ 100 mls/hr IV ASDIR [facility] Last Admin: 03/10/18 10:23 Dose: 100 mls/hr Lactobacillus Acidophilus (Bacid -) 1 tab PO BID [facility] Last Admin: 03/10/18 10:21 Dose: 1 tab Levothyroxine Sodium (Synthroid -) 112 mcg PO DAILY@0700 [facility] Last Admin: 03/10/18 06:17 Dose: 112 mcg Loratadine (Claritin -) 10 mg PO DAILY [facility] Last Admin: 03/10/18 10:21 Dose: 10 mg Metoprolol Tartrate (Lopressor -) 25 mg PO BID [facility] Last Admin: 03/10/18 10:20 Dose: 25 mg Mirtazapine (Remeron -) 7.5 mg PO HS [facility] Last Admin: 03/09/18 22:06 Dose: 7.5 mg Pantoprazole Sodium (Protonix Iv) 40 mg IVPUSH BID [facility] Last Admin: 03/10/18 10:21 Dose: 40 mg Sertraline HCl (Zoloft -) 50 mg PO DAILY [facility] Last Admin: 03/10/18 10:21 Dose: 50 mg Vancomycin HCl (Vancomycin Oral Solution) 250 mg PO Q6HPO [facility] Last Admin: 03/10/18 05:41 Dose: 250 mg - Objective Vital Signs: Vital Signs Temperature 97.9 F 03/10/18 06:00 Pulse Rate 54 L 03/10/18 08:16 Respiratory Rate 21 H 03/10/18 11:24 Blood Pressure 112/70 03/10/18 06:00 O2 Sat by Pulse Oximetry (%) 98 03/10/18 08:16 Constitutional: Yes: Calm Neck: Yes: Other (trach) Cardiovascular: Yes: Regular Rate and Rhythm, S1, S2 Labs: CBC, BMP 03/10/18 05:00 03/10/18 05:00 INR, PTT INR 1.19 (0.83-1.09) H 03/05/18 15:10 Fibrinogen > 500.0 mg/dL (238-498) H 02/27/18 05:08 Problem List - Problems (1) C. difficile diarrhea Assessment/Plan: Microbiology 03/08/18 19:30 Stool Clostridium difficile Antigen (DARON) - Final 03/08/18 19:30 Stool Clostridium difficile Toxin Assay - Final vancomycin solution rectal tube keeps getting displaced bc of hard impacted stool enema one dose contact precautions Code(s): A04.72 - ENTEROCOLITIS D/T CLOSTRIDIUM DIFFICILE, NOT SPCF RECUR (2) Anemia Assessment/Plan: s/p prbc gi consult noted ppi heme on board Code(s): D64.9 - ANEMIA, UNSPECIFIED Qualifiers: Other causes of anemia: other cause, not classified (3) Altered mental status Assessment/Plan: toxic metabolic encephalopathy most likely secondary to UTI- improving chronic indwelling perera iv abx zosyn stopped Code(s): R41.82 - ALTERED MENTAL STATUS, UNSPECIFIED (4) Depression Assessment/Plan: remeron and zoloft Code(s): F32.9 - MAJOR DEPRESSIVE DISORDER, SINGLE EPISODE, UNSPECIFIED (5) Decubital ulcer Assessment/Plan: frequent turn and position dr jeffries consult saw patient - consult appreciated wounds debridedded rectal tube po vancomycin for c diff Code(s): L89.90 - PRESSURE ULCER OF UNSPECIFIED SITE, UNSPECIFIED STAGE Qualifiers: Pressure injury location: unspecified location Pressure injury stage: unspecified pressure injury stage Qualified Code(s): L89.90 - Pressure ulcer of unspecified site, unspecified stage (6) Hypothyroid Assessment/Plan: synthroid dose increase based on tsh now dose is 112mcg from 100mcg Code(s): E03.9 - HYPOTHYROIDISM, UNSPECIFIED (7) HTN (hypertension) Assessment/Plan: stop Metoprolol given bradycardia ekg cardiology consult continue hydralazine Code(s): I10 - ESSENTIAL (PRIMARY) HYPERTENSION (8) Hx of multiple sclerosis Assessment/Plan: vent support possible weaning simv mode enteral feeds via ng tube for now Code(s): Z86.69 - PERSONAL HISTORY OF DIS OF THE NERVOUS SYS AND SENSE ORGANS
[2018-03-10] MEDS ORDERED: MINERAL OIL ENEMA 133 ML ENEMA PR ONE (12:25)
--- NOTE | 2018-03-10 15:04 | PN ---
Progress Note, [employer] - Note Progress Note: Pt. seen for f/u. Awake and alert with her sister Tiffani at bedside, NGT and vent. Pt. mouthing words to respond to questions. Imprecise articulation and reduced ROM of tongue. Difficulty managing secretions. Although somewhat improved, still not ready for PO trials.
--- NOTE | 2018-03-10 15:34 | CON.CARD ---
Consult Consult Specialty:: Cardiology Referred by:: Sunshine Sanches Reason for Consultation:: bradycardia - History of Present Illness Chief Complaint: slow HR noted History of Present Illness: 53F pmhx of MS s/p trach and peg, hypthyroidism, with recurrent infections admitted with urosepsis and toxic encephalopathy. Chronic anemia requiring transfusions. Noted to be bradycardic at times to 50 when sleeping but 60s when awake. - History Source History Provided By: Medical Record - Past Medical History [employer]: Yes: Multiple Sclerosis (quadraplegia), Other (legally blind, trigeminal neuralgia -> baclofen pump) Cardio/Vascular: Yes: HTN, Hyperlipdemia Pulmonary: Yes: Pneumonia, Previously Intubated, Other Gastrointestinal: Yes: Constipation (chronic) Hepatobiliary: Yes: Cholelithiasis Renal/: Yes: Neurogenic Bladder ( neurogenic bladder, chronic perera catheter) ...LMP: 06/07/12 Infectious Disease: Yes: Other (pneumonia, uti treated by urologist) Musculoskeletal: Yes: Other (Quadraplegia) Dermatology: Yes: Other (chronic decubitus followed by wound care) Additional Medical History: trigeminal neuralgia, baclofen pump. chronic decubitus followed by wound care. neurogenic bladder, chronic perera catheter - Past Surgical History Past Surgical History: Yes: Colonoscopy Additional Surgical History: RUQ Baclofen pump insertion - Alcohol/Substance Use Hx Alcohol Use: No History of Substance Use: reports: None - Smoking History Smoking history: Never smoked Have you smoked in the past 12 months: No Aproximately how many cigarettes per day: 0 - Social History Usual Living Arrangement: With Parent ADL: Support Services History of Recent Travel: No Home Medications - Allergies Allergies/Adverse Reactions: Allergies Allergy/AdvReac Type Severity Reaction Status Date / Time chloral hydrate Allergy Intermediate Rash Verified 02/25/18 18:47 [Chloral Hydrate] azathioprine [From Imuran] Allergy Rash Verified 02/25/18 18:47 azathioprine sodium Allergy Rash Verified 02/25/18 18:47 [From Imuran] adhesive tape AdvReac Severe sensitivity Verified 02/25/18 18:47 to glue adhesive AdvReac Unknown Verified 02/25/18 18:47 - Home Medications Home Medications: Ambulatory Orders Levothyroxine [Synthroid -] 100 mcg PO DAILY@0700 #30 tablet 06/24/16 hydrALAZINE HCL [Apresoline -] 50 mg PO TID 02/11/17 Carbamazepine 100 mg PO TID 01/03/18 Loratadine 10 mg PO DAILY 01/03/18 Metoprolol Succinate 50 mg PO BID 01/03/18 Potassium Chloride [K-Dur -] 20 meq PO DAILY 01/03/18 Sertraline HCl 50 mg PO DAILY 01/03/18 Furosemide 20 mg PO DAILY 02/25/18 Family Disease History - Family Disease History Family Disease History: Diabetes: Sister, Other: Mother Vital Signs: Vital Signs Temperature 97.9 F 03/10/18 14:19 Pulse Rate 66 03/10/18 14:19 Respiratory Rate 15 03/10/18 14:19 Blood Pressure 133/63 03/10/18 14:19 O2 Sat by Pulse Oximetry (%) 98 03/10/18 08:16 Constitutional: Yes: Other (chronically ill, vent/trach) Neck: Yes: Supple Respiratory: Yes: Mechanically Ventilated Gastrointestinal: Yes: Soft Cardiovascular: Yes: Regular Rate and Rhythm JVD: No Carotid Bruit: No PMI: Non-Displaced Heart Sounds: Yes: S1, S2 Murmur: No: Systolic Murmur Edema: No - Other Data Labs, Other Data: CBC, BMP 03/10/18 05:00 03/10/18 05:00 INR, PTT INR 1.19 (0.83-1.09) H 03/05/18 15:10 Fibrinogen > 500.0 mg/dL (238-498) H 02/27/18 05:08 Assessment/Plan 53F pmhx of MS s/p trach and peg, hypthyroidism, with recurrent infections admitted with urosepsis and toxic encephalopathy. Chronic anemia requiring transfusions. Noted to be bradycardic at times to 50 when sleeping but 60s when awake. -HR current 63bpm -Would stop metoprolol Plan for 12 lead ekg to confirm normal sinus rhythm -Treat underlying infection, monitor lytes and tfts -No further cardiac work up or testing. No indication for PPM. Avoid AV rasheed blocking agents. Will sign off.
--- NOTE | 2018-03-10 16:14 | EKG ---
Test Reason : Blood Pressure : / mmHG Vent. Rate : 056 BPM Atrial Rate : 056 BPM P-R Int : 142 ms QRS Dur : 100 ms QT Int : 422 ms P-R-T Axes : 031 028 027 degrees QTc Int : 407 ms SINUS BRADYCARDIA OTHERWISE NORMAL ECG WHEN COMPARED WITH ECG OF 25-FEB-2018 21:24, VENT. RATE HAS DECREASED BY 32 BPM INCOMPLETE RIGHT BUNDLE BRANCH BLOCK IS NO LONGER PRESENT Confirmed by NATTY PATIÑO, SLOAN ([id number]) on 03/10/2018 4:13:52 PM Referred By: MIGUEL ROCK Confirmed By:SLOAN LUZ MD
[2018-03-10] MEDS: ACETAMINOPHEN 650 MG/20.3 ML ORAL SOLUTION (CUPS) NGT PRN ×2 (17:14→22:42)
[2018-03-10] MEDS: MIRTAZAPINE 15 MG TABLET (FP) PO SCH (22:26)
[2018-03-11] MEDS: hydrALAZINE HCL 10 MG TABLET PO SCH (06:53)
[2018-03-11] MEDS: LEVOTHYROXINE NA 112 MCG TABLET (FP) PO SCH (06:54)
[2018-03-11] MEDS: VANCOMYCIN 250 MG/5 ML ORAL SOLUTION PO SCH ×4 (06:54→23:03)
[2018-03-11] MEDS: carBAMazepine 100 MG TAB.CHEW PO SCH ×3 (06:54→21:51)
[2018-03-11 07:24] LABS: EOS % 3.1 % (0-4.5); HEMATOCRIT 27.2 % (32.4-45.2); HEMOGLOBIN 8.8 GM/dL (10.7-15.3); LYMPH % 17.2 % (8-40); MCH 30.6 pg (25.7-33.7); MCHC 32.2 g/dl (32.0-36.0); MEAN CELL VOLUME 95.1 fl (80-96); MEAN PLT VOLUME 8.1 fl (7.5-11.1); MONO % 10.9 % (3.8-10.2); NEUT % 67.8 % (42.8-82.8); PLATELET COUNT 441 K/MM3 (134-434); RBC 2.86 M/mm3 (3.60-5.2); WHITE BLOOD COUNT 6.2 K/mm3 (4.0-10.0)
[2018-03-11] MEDS: ALBUTEROL SO4 2.5/IPRATROPIUM 0.5 INH SOL 3 ML VIAL.NEB. NEB SCH ×4 (08:36→20:50)
[2018-03-11 08:49] LABS: ALK PHOS 126 U/L (45-117); ANION GAP 5 MMOL/L (8-16); BILIRUBIN,TOTAL 0.4 mg/dL (0.2-1); BLOOD UREA NITROGEN 20 mg/dL (7-18); CALCIUM 8.5 mg/dL (8.5-10.1); CHLORIDE 110 mmol/L (98-107); CO2 27 mmol/L (21-32); CREATININE 0.4 mg/dL (0.55-1.3); GLUCOSE,RANDOM 84 mg/dL (74-106); POTASSIUM 4.1 mmol/L (3.5-5.1); SGOT/AST 16 U/L (15-37); SGPT/ALT 21 U/L (13-61); SODIUM 142 mmol/L (136-145); TOT PROT 6.4 g/dl (6.4-8.2)
[2018-03-11] MEDS ORDERED: PT OWN MED DRAWER 7, Y5N ONE (09:57)
[2018-03-11] MEDS: SODIUM CHLORIDE 1,000 ML IV SCH ×2 (10:07→23:03)
[2018-03-11] MEDS: PANTOPRAZOLE SODIUM 40 MG VIAL IVPUSH SCH ×2 (10:07→21:51)
[2018-03-11] MEDS: FERROUS SO4 300 MG/5 ML ORAL SOLN UNIT DOSE CUPS GT SCH (11:33)
[2018-03-11] MEDS: LACTOBACILLUS ACIDOPHILUS 1 TABLET PO SCH ×2 (11:33→21:51)
[2018-03-11] MEDS: FOLIC ACID 1 MG TABLET (FP) PO SCH (11:33)
[2018-03-11] MEDS: BACITRACIN 15 GM TUBE TOPICAL OINTMENT TP SCH ×2 (11:33→21:52)
[2018-03-11] MEDS: COLLAGENASE CLOSTRIDIUM HIST. 30 GRAMS TUBE TP SCH (11:34)
[2018-03-11] MEDS: LORATADINE 10 MG TABLET PO SCH (11:34)
[2018-03-11] MEDS: MULTIVIT-MINERALS ORAL LIQUID PO SCH (11:34)
[2018-03-11] MEDS: SERTRALINE HCL 50 MG TABLET (FP) PO SCH (11:34)
[2018-03-11] MEDS: ACETAMINOPHEN 650 MG/20.3 ML ORAL SOLUTION (CUPS) NGT PRN ×2 (11:34→17:41)
[2018-03-11] MEDS: ASCORBIC ACID 500 MG/5 ML UNIT DOSE CUP PO SCH (11:34)
--- NOTE | 2018-03-11 15:43 | PN ---
Progress Note, Physician History of Present Illness: PULMONARY ALERT,NO DISTRESS ON VENT SUPPORT AC MODE - Current Medication List Current Medications: Active Medications Acetaminophen (Tylenol Oral Solution -) 650 mg NGT Q6H PRN PRN Reason: PAIN LEVEL 1-5 Last Admin: 03/11/18 11:34 Dose: 650 mg Albuterol/Ipratropium (Duoneb -) 1 amp NEB RQID [facility] Last Admin: 03/11/18 12:40 Dose: 1 amp Ascorbic Acid (Vitamin C Oral Solution -) 500 mg PO DAILY [facility] Last Admin: 03/11/18 11:34 Dose: 500 mg Bacitracin (Bacitracin -) 1 applic TP BID [facility] Last Admin: 03/11/18 11:33 Dose: 1 applic Carbamazepine (Tegretol -) 100 mg PO TID [facility] Last Admin: 03/11/18 06:54 Dose: Not Given Collagenase (Santyl -) 1 applic TP DAILY [facility]; Protocol Last Admin: 03/11/18 11:34 Dose: 1 applic Ferrous Sulfate (Feosol) 300 mg GT DAILY [facility] Last Admin: 03/11/18 11:33 Dose: 300 mg Folic Acid (Folic Acid -) 1 mg PO DAILY [facility] Last Admin: 03/11/18 11:33 Dose: 1 mg Sodium Chloride (Normal Saline -) 1,000 mls @ 100 mls/hr IV ASDIR [facility] Last Admin: 03/11/18 10:07 Dose: 100 mls/hr Lactobacillus Acidophilus (Bacid -) 1 tab PO BID [facility] Last Admin: 03/11/18 11:33 Dose: 1 tab Levothyroxine Sodium (Synthroid -) 112 mcg PO DAILY@0700 [facility] Last Admin: 03/11/18 06:54 Dose: Not Given Loratadine (Claritin -) 10 mg PO DAILY [facility] Last Admin: 03/11/18 11:34 Dose: 10 mg Mirtazapine (Remeron -) 7.5 mg PO HS [facility] Last Admin: 03/10/18 22:26 Dose: 7.5 mg Pantoprazole Sodium (Protonix Iv) 40 mg IVPUSH BID [facility] Last Admin: 03/11/18 10:07 Dose: 40 mg Sertraline HCl (Zoloft -) 50 mg PO DAILY [facility] Last Admin: 03/11/18 11:34 Dose: 50 mg Vancomycin HCl (Vancomycin Oral Solution) 250 mg PO Q6HPO [facility] Last Admin: 03/11/18 11:33 Dose: 250 mg - Objective Vital Signs: Vital Signs Temperature 98.2 F 03/11/18 15:19 Pulse Rate 59 L 03/11/18 15:19 Respiratory Rate 16 03/11/18 15:19 Blood Pressure 107/50 L 03/11/18 15:19 O2 Sat by Pulse Oximetry (%) 98 03/10/18 15:53 Constitutional: Yes: Well Nourished, Calm Eyes: Yes: WNL HENT: Yes: WNL Neck: Yes: Supple (TRACH) Cardiovascular: Yes: Regular Rate and Rhythm, S1, S2 Respiratory: Yes: Other (FEW RHONCHI) Gastrointestinal: Yes: Normal Bowel Sounds, Soft Extremities: Yes: WNL Edema: No Labs: CBC, BMP 03/11/18 06:10 03/11/18 06:10 INR, PTT INR 1.19 (0.83-1.09) H 03/05/18 15:10 Fibrinogen > 500.0 mg/dL (238-498) H 02/27/18 05:08 Assessment/Plan A/P Acute on Chronic Hypoxic and Hypercapneic Respiratory Failure Pneumonia UTI Sepsis Multiple Sclerosis Functional Quadriplegia - monitor urine output, creatinine - vent support,wean as tolerated - DVT/GI prophylaxis Problem List - Problems (1) Acute on chronic respiratory failure with hypoxia and hypercapnia Code(s): J96.21 - ACUTE AND CHRONIC RESPIRATORY FAILURE WITH HYPOXIA; J96.22 - ACUTE AND CHRONIC RESPIRATORY FAILURE WITH HYPERCAPNIA (2) Urinary tract infection Code(s): N39.0 - URINARY TRACT INFECTION, SITE NOT SPECIFIED Qualifiers: Urinary tract infection type: site unspecified Hematuria presence: with hematuria Qualified Code(s): N39.0 - Urinary tract infection, site not specified; R31.9 - Hematuria, unspecified (3) Sepsis Code(s): A41.9 - SEPSIS, UNSPECIFIED ORGANISM (4) Decubital ulcer Code(s): L89.90 - PRESSURE ULCER OF UNSPECIFIED SITE, UNSPECIFIED STAGE Qualifiers: Pressure injury location: unspecified location Pressure injury stage: unspecified pressure injury stage Qualified Code(s): L89.90 - Pressure ulcer of unspecified site, unspecified stage (5) Multiple sclerosis Code(s): G35 - MULTIPLE SCLEROSIS (6) Functional quadriplegia Code(s): R53.2 - FUNCTIONAL QUADRIPLEGIA
[2018-03-11] MEDS: MIRTAZAPINE 15 MG TABLET (FP) PO SCH (21:51)
[2018-03-12] MEDS: LEVOTHYROXINE NA 112 MCG TABLET (FP) PO SCH (06:05)
[2018-03-12] MEDS: VANCOMYCIN 250 MG/5 ML ORAL SOLUTION PO SCH ×4 (06:05→23:18)
[2018-03-12] MEDS: carBAMazepine 100 MG TAB.CHEW PO SCH ×3 (06:05→22:47)
[2018-03-12] MEDS: ALBUTEROL SO4 2.5/IPRATROPIUM 0.5 INH SOL 3 ML VIAL.NEB. NEB SCH ×6 (07:30→20:02)
[2018-03-12] MEDS: COLLAGENASE CLOSTRIDIUM HIST. 30 GRAMS TUBE TP SCH (09:32)
[2018-03-12] MEDS: LACTOBACILLUS ACIDOPHILUS 1 TABLET PO SCH ×2 (10:10→22:46)
[2018-03-12] MEDS: FERROUS SO4 300 MG/5 ML ORAL SOLN UNIT DOSE CUPS GT SCH (10:10)
[2018-03-12] MEDS: BACITRACIN 15 GM TUBE TOPICAL OINTMENT TP SCH ×2 (10:10→22:46)
[2018-03-12] MEDS: FOLIC ACID 1 MG TABLET (FP) PO SCH (10:10)
[2018-03-12] MEDS: PANTOPRAZOLE SODIUM 40 MG VIAL IVPUSH SCH ×2 (10:10→22:47)
[2018-03-12] MEDS: SERTRALINE HCL 50 MG TABLET (FP) PO SCH (10:10)
[2018-03-12] MEDS: LORATADINE 10 MG TABLET PO SCH (10:10)
[2018-03-12] MEDS: MULTIVIT-MINERALS ORAL LIQUID PO SCH (10:11)
[2018-03-12] MEDS: ASCORBIC ACID 500 MG/5 ML UNIT DOSE CUP PO SCH (10:11)
[2018-03-12] MEDS: SODIUM CHLORIDE 1,000 ML IV SCH ×2 (10:31→21:04)
--- NOTE | 2018-03-12 12:16 | PN ---
Progress Note (short form) - Note Progress Note: Awake and alert in SIMV 10 Mode of vent, 35% FiO2. Still with diarrhea. Intake & Output 03/09/18 03/10/18 03/11/18 03/12/18 23:59 23:59 23:59 23:59 Intake Total 3690 800 3870 2270 Output Total 1700 1800 5900 600 Balance 1989 -2029 1670 Last Vital Signs Temp Pulse Resp BP Pulse Ox 98.6 F 64 16 114/63 96 03/12/18 10:00 03/12/18 10:00 03/12/18 10:00 03/12/18 10:00 03/11/18 22:00 Active Medications Acetaminophen (Tylenol Oral Solution -) 650 mg NGT Q6H PRN PRN Reason: PAIN LEVEL 1-5 Last Admin: 03/11/18 17:41 Dose: 650 mg Albuterol/Ipratropium (Duoneb -) 1 amp NEB RQID [facility] Last Admin: 03/12/18 07:30 Dose: 1 amp Ascorbic Acid (Vitamin C Oral Solution -) 500 mg PO DAILY [facility] Last Admin: 03/12/18 10:11 Dose: 500 mg Bacitracin (Bacitracin -) 1 applic TP BID [facility] Last Admin: 03/12/18 10:10 Dose: 1 applic Carbamazepine (Tegretol -) 100 mg PO TID [facility] Last Admin: 03/12/18 06:05 Dose: 100 mg Collagenase (Santyl -) 1 applic TP DAILY [facility]; Protocol Last Admin: 03/11/18 11:34 Dose: 1 applic Ferrous Sulfate (Feosol) 300 mg GT DAILY [facility] Last Admin: 03/12/18 10:10 Dose: 300 mg Folic Acid (Folic Acid -) 1 mg PO DAILY [facility] Last Admin: 03/12/18 10:10 Dose: 1 mg Sodium Chloride (Normal Saline -) 1,000 mls @ 100 mls/hr IV ASDIR [facility] Last Admin: 03/12/18 10:31 Dose: 100 mls/hr Lactobacillus Acidophilus (Bacid -) 1 tab PO BID [facility] Last Admin: 03/12/18 10:10 Dose: 1 tab Levothyroxine Sodium (Synthroid -) 112 mcg PO DAILY@0700 [facility] Last Admin: 03/12/18 06:05 Dose: 112 mcg Loratadine (Claritin -) 10 mg PO DAILY [facility] Last Admin: 03/12/18 10:10 Dose: 10 mg Mirtazapine (Remeron -) 7.5 mg PO HS [facility] Last Admin: 03/11/18 21:51 Dose: 7.5 mg Pantoprazole Sodium (Protonix Iv) 40 mg IVPUSH BID [facility] Last Admin: 03/12/18 10:10 Dose: 40 mg Sertraline HCl (Zoloft -) 50 mg PO DAILY [facility] Last Admin: 03/12/18 10:10 Dose: 50 mg Vancomycin HCl (Vancomycin Oral Solution) 250 mg PO Q6HPO [facility] Last Admin: 03/12/18 06:05 Dose: 250 mg Gen: vented, awake Heart: RRR Lung: decresed breath sounds at the bases Abd: soft, nontender Ext: no edema Problem List - Problems (1) Acute on chronic respiratory failure with hypoxia and hypercapnia Code(s): J96.21 - ACUTE AND CHRONIC RESPIRATORY FAILURE WITH HYPOXIA; J96.22 - ACUTE AND CHRONIC RESPIRATORY FAILURE WITH HYPERCAPNIA (2) Urinary tract infection Code(s): N39.0 - URINARY TRACT INFECTION, SITE NOT SPECIFIED Qualifiers: Urinary tract infection type: site unspecified Hematuria presence: with hematuria Qualified Code(s): N39.0 - Urinary tract infection, site not specified; R31.9 - Hematuria, unspecified (3) Sepsis Code(s): A41.9 - SEPSIS, UNSPECIFIED ORGANISM (4) Decubital ulcer Code(s): L89.90 - PRESSURE ULCER OF UNSPECIFIED SITE, UNSPECIFIED STAGE Qualifiers: Pressure injury location: unspecified location Pressure injury stage: unspecified pressure injury stage Qualified Code(s): L89.90 - Pressure ulcer of unspecified site, unspecified stage (5) Multiple sclerosis Code(s): G35 - MULTIPLE SCLEROSIS (6) Functional quadriplegia Code(s): R53.2 - FUNCTIONAL QUADRIPLEGIA IMP: Acute on Chronic Hypoxic and Hypercapneic Respiratory Failure Pneumonia UTI Sepsis Multiple Sclerosis Functional Quadriplegia PLAN: - continue antibiotics per ID - monitor urine output, creatinine - SIMV, wean as tolerated - taper Fio2 to keep Spo2 >90% - Possible trial of Trach collar tomorrow - enteral feeds - DVT/GI prophylaxis Dr Fox
[2018-03-12] MEDS: ACETAMINOPHEN 650 MG/20.3 ML ORAL SOLUTION (CUPS) NGT PRN (12:34)
--- NOTE | 2018-03-12 12:53 | PN ---
Progress Note, Physician Chief Complaint: awake alert mother is bedside c/o diarrhea non-bloody - Current Medication List Current Medications: Active Medications Acetaminophen (Tylenol Oral Solution -) 650 mg NGT Q6H PRN PRN Reason: PAIN LEVEL 1-5 Last Admin: 03/12/18 12:34 Dose: 650 mg Albuterol/Ipratropium (Duoneb -) 1 amp NEB RQID [facility] Last Admin: 03/12/18 07:30 Dose: 1 amp Albuterol/Ipratropium (Duoneb -) 1 amp NEB RQID [facility] Ascorbic Acid (Vitamin C Oral Solution -) 500 mg PO DAILY [facility] Last Admin: 03/12/18 10:11 Dose: 500 mg Bacitracin (Bacitracin -) 1 applic TP BID [facility] Last Admin: 03/12/18 10:10 Dose: 1 applic Carbamazepine (Tegretol -) 100 mg PO TID [facility] Last Admin: 03/12/18 06:05 Dose: 100 mg Collagenase (Santyl -) 1 applic TP DAILY [facility]; Protocol Last Admin: 03/12/18 09:32 Dose: 1 applic Ferrous Sulfate (Feosol) 300 mg GT DAILY [facility] Last Admin: 03/12/18 10:10 Dose: 300 mg Folic Acid (Folic Acid -) 1 mg PO DAILY [facility] Last Admin: 03/12/18 10:10 Dose: 1 mg Sodium Chloride (Normal Saline -) 1,000 mls @ 100 mls/hr IV ASDIR [facility] Last Admin: 03/12/18 10:31 Dose: 100 mls/hr Lactobacillus Acidophilus (Bacid -) 1 tab PO BID [facility] Last Admin: 03/12/18 10:10 Dose: 1 tab Levothyroxine Sodium (Synthroid -) 112 mcg PO DAILY@0700 [facility] Last Admin: 03/12/18 06:05 Dose: 112 mcg Loratadine (Claritin -) 10 mg PO DAILY [facility] Last Admin: 03/12/18 10:10 Dose: 10 mg Mirtazapine (Remeron -) 7.5 mg PO HS [facility] Last Admin: 03/11/18 21:51 Dose: 7.5 mg Nystatin/Triamcinolone Acetonide (Mycolog Ii Cream -) 1 applic TP BID [facility] Pantoprazole Sodium (Protonix Iv) 40 mg IVPUSH BID [facility] Last Admin: 03/12/18 10:10 Dose: 40 mg Sertraline HCl (Zoloft -) 50 mg PO DAILY [facility] Last Admin: 03/12/18 10:10 Dose: 50 mg Vancomycin HCl (Vancomycin Oral Solution) 250 mg PO Q6HPO [facility] Last Admin: 03/12/18 12:33 Dose: 250 mg - Objective Vital Signs: Vital Signs Temperature 98.6 F 03/12/18 10:00 Pulse Rate 64 03/12/18 10:00 Respiratory Rate 16 03/12/18 10:00 Blood Pressure 114/63 03/12/18 10:00 O2 Sat by Pulse Oximetry (%) 96 03/11/18 22:00 Constitutional: Yes: Calm HENT: Yes: WNL Cardiovascular: Yes: Regular Rate and Rhythm Respiratory: Yes: Mechanically Ventilated Gastrointestinal: Yes: Soft Genitourinary: Yes: Other Musculoskeletal: Yes: Muscle Weakness Wound/Incision: Yes: Dressing Dry and Intact Neurological: Yes: Loss of Sensation, Numbness, Pre-Existing Deficit, Unsteady Gait, Weakness ...Motor Strength: LLE, RLE Psychiatric: Yes: WNL Labs: CBC, BMP 03/11/18 06:10 03/11/18 06:10 INR, PTT INR 1.19 (0.83-1.09) H 03/05/18 15:10 Fibrinogen > 500.0 mg/dL (238-498) H 02/27/18 05:08 Problem List - Problems (1) Acute on chronic respiratory failure with hypoxia and hypercapnia Code(s): J96.21 - ACUTE AND CHRONIC RESPIRATORY FAILURE WITH HYPOXIA; J96.22 - ACUTE AND CHRONIC RESPIRATORY FAILURE WITH HYPERCAPNIA (2) Decubital ulcer Code(s): L89.90 - PRESSURE ULCER OF UNSPECIFIED SITE, UNSPECIFIED STAGE Qualifiers: Pressure injury location: unspecified location Pressure injury stage: unspecified pressure injury stage Qualified Code(s): L89.90 - Pressure ulcer of unspecified site, unspecified stage (3) Depression Code(s): F32.9 - MAJOR DEPRESSIVE DISORDER, SINGLE EPISODE, UNSPECIFIED (4) Presence of intrathecal baclofen pump Code(s): Z98.89 - OTHER SPECIFIED POSTPROCEDURAL STATES * DO NOT USE * (5) Sacral decubitus ulcer, stage IV Code(s): L89.154 - PRESSURE ULCER OF SACRAL REGION, STAGE 4 (6) Urinary tract infection Code(s): N39.0 - URINARY TRACT INFECTION, SITE NOT SPECIFIED Qualifiers: Urinary tract infection type: site unspecified Hematuria presence: with hematuria Qualified Code(s): N39.0 - Urinary tract infection, site not specified; R31.9 - Hematuria, unspecified (7) Adrenal insufficiency Code(s): E27.40 - UNSPECIFIED ADRENOCORTICAL INSUFFICIENCY (8) Altered mental status Code(s): R41.82 - ALTERED MENTAL STATUS, UNSPECIFIED (9) Chronic hypercapnic respiratory failure Code(s): J96.12 - CHRONIC RESPIRATORY FAILURE WITH HYPERCAPNIA (10) Functional quadriplegia Code(s): R53.2 - FUNCTIONAL QUADRIPLEGIA (11) Multiple sclerosis Code(s): G35 - MULTIPLE SCLEROSIS (12) Muscle spasticity Code(s): M62.838 - OTHER MUSCLE SPASM (13) C. difficile diarrhea Code(s): A04.72 - ENTEROCOLITIS D/T CLOSTRIDIUM DIFFICILE, NOT SPCF RECUR Assessment/Plan IV ABX LOW FIBER DIET/NGT ON PIVOT FEEDS GI F/U WOUND CARE SKIN CARE DVT PROPHYLAXIS RESP SUPPORT ON TRACHEOSTOMY VENT
[2018-03-12] MEDS ORDERED: LOPERAMIDE HCL 1 MG/5 ML UNIT DOSE CUP PO ONE (13:03)
[2018-03-12] MEDS: NYSTATIN/TRIAMCINOLONE TOPICAL CREAM 15 GM TUBE TP SCH ×2 (13:29→22:46)
[2018-03-12] MEDS: MIRTAZAPINE 15 MG TABLET (FP) PO SCH (22:46)
[2018-03-13] MEDS: carBAMazepine 100 MG TAB.CHEW PO SCH ×3 (06:57→21:56)
[2018-03-13] MEDS: VANCOMYCIN 250 MG/5 ML ORAL SOLUTION PO SCH ×4 (06:57→23:39)
[2018-03-13] MEDS: LEVOTHYROXINE NA 112 MCG TABLET (FP) PO SCH (06:58)
[2018-03-13] MEDS: ALBUTEROL SO4 2.5/IPRATROPIUM 0.5 INH SOL 3 ML VIAL.NEB. NEB SCH ×4 (07:50→19:46)
[2018-03-13] MEDS: SODIUM CHLORIDE 1,000 ML IV SCH ×2 (10:51→22:02)
[2018-03-13] MEDS: PANTOPRAZOLE SODIUM 40 MG VIAL IVPUSH SCH ×2 (10:51→21:56)
[2018-03-13] MEDS: COLLAGENASE CLOSTRIDIUM HIST. 30 GRAMS TUBE TP SCH (10:56)
[2018-03-13] MEDS: NYSTATIN/TRIAMCINOLONE TOPICAL CREAM 15 GM TUBE TP SCH ×2 (10:56→21:56)
[2018-03-13] MEDS: SERTRALINE HCL 50 MG TABLET (FP) PO SCH (12:03)
[2018-03-13] MEDS: LACTOBACILLUS ACIDOPHILUS 1 TABLET PO SCH ×2 (12:03→21:56)
[2018-03-13] MEDS: LORATADINE 10 MG TABLET PO SCH (12:03)
[2018-03-13] MEDS: FERROUS SO4 300 MG/5 ML ORAL SOLN UNIT DOSE CUPS GT SCH (12:03)
[2018-03-13] MEDS: MULTIVIT-MINERALS ORAL LIQUID PO SCH (12:04)
[2018-03-13] MEDS: ASCORBIC ACID 500 MG/5 ML UNIT DOSE CUP PO SCH (12:04)
[2018-03-13] MEDS: FOLIC ACID 1 MG TABLET (FP) PO SCH (12:04)
--- NOTE | 2018-03-13 12:15 | PN ---
Progress Note (short form) - Note Progress Note: Awake and alert Trach collar, 35% FiO2. Still with excess secretions. Still with diarrhea. 2 Intake & Output 03/10/18 03/11/18 03/12/18 03/13/18 23:59 23:59 23:59 23:59 Intake Total 800 3870 4595 1850 Output Total 1800 5900 2900 1100 Balance -999 -2029 1695 750 Last Vital Signs Temp Pulse Resp BP Pulse Ox 98 F 64 14 140/53 L 98 03/13/18 10:00 03/13/18 10:00 03/13/18 10:00 03/13/18 10:00 03/12/18 20:32 Active Medications Acetaminophen (Tylenol Oral Solution -) 650 mg NGT Q6H PRN PRN Reason: PAIN LEVEL 1-5 Last Admin: 03/12/18 12:34 Dose: 650 mg Albuterol/Ipratropium (Duoneb -) 1 amp NEB RQID [facility] Last Admin: 03/13/18 12:11 Dose: 1 amp Ascorbic Acid (Vitamin C Oral Solution -) 500 mg PO DAILY [facility] Last Admin: 03/12/18 10:11 Dose: 500 mg Bacitracin (Bacitracin -) 1 applic TP BID [facility] Last Admin: 03/12/18 22:46 Dose: 1 applic Carbamazepine (Tegretol -) 100 mg PO TID [facility] Last Admin: 03/13/18 06:57 Dose: Not Given Collagenase (Santyl -) 1 applic TP DAILY [facility]; Protocol Last Admin: 03/13/18 10:56 Dose: 1 applic Ferrous Sulfate (Feosol) 300 mg GT DAILY [facility] Last Admin: 03/12/18 10:10 Dose: 300 mg Folic Acid (Folic Acid -) 1 mg PO DAILY [facility] Last Admin: 03/12/18 10:10 Dose: 1 mg Sodium Chloride (Normal Saline -) 1,000 mls @ 100 mls/hr IV ASDIR [facility] Last Admin: 03/13/18 10:51 Dose: 100 mls/hr Lactobacillus Acidophilus (Bacid -) 1 tab PO BID [facility] Last Admin: 03/12/18 22:46 Dose: 1 tab Levothyroxine Sodium (Synthroid -) 112 mcg PO DAILY@0700 [facility] Last Admin: 03/13/18 06:58 Dose: Not Given Loratadine (Claritin -) 10 mg PO DAILY [facility] Last Admin: 03/12/18 10:10 Dose: 10 mg Mirtazapine (Remeron -) 7.5 mg PO HS [facility] Last Admin: 03/12/18 22:46 Dose: 7.5 mg Nystatin/Triamcinolone Acetonide (Mycolog Ii Cream -) 1 applic TP BID [facility] Last Admin: 03/13/18 10:56 Dose: 1 applic Pantoprazole Sodium (Protonix Iv) 40 mg IVPUSH BID [facility] Last Admin: 03/13/18 10:51 Dose: 40 mg Sertraline HCl (Zoloft -) 50 mg PO DAILY [facility] Last Admin: 03/12/18 10:10 Dose: 50 mg Vancomycin HCl (Vancomycin Oral Solution) 250 mg PO Q6HPO [facility] Last Admin: 03/13/18 06:57 Dose: Not Given Gen: Awake and alert, NAD on Trach collar Heart: RRR Lung: decresed breath sounds at the bases Abd: soft, nontender Ext: no edema Problem List - Problems (1) Acute on chronic respiratory failure with hypoxia and hypercapnia Code(s): J96.21 - ACUTE AND CHRONIC RESPIRATORY FAILURE WITH HYPOXIA; J96.22 - ACUTE AND CHRONIC RESPIRATORY FAILURE WITH HYPERCAPNIA (2) Urinary tract infection Code(s): N39.0 - URINARY TRACT INFECTION, SITE NOT SPECIFIED Qualifiers: Urinary tract infection type: site unspecified Hematuria presence: with hematuria Qualified Code(s): N39.0 - Urinary tract infection, site not specified; R31.9 - Hematuria, unspecified (3) Sepsis Code(s): A41.9 - SEPSIS, UNSPECIFIED ORGANISM (4) Decubital ulcer Code(s): L89.90 - PRESSURE ULCER OF UNSPECIFIED SITE, UNSPECIFIED STAGE Qualifiers: Pressure injury location: unspecified location Pressure injury stage: unspecified pressure injury stage Qualified Code(s): L89.90 - Pressure ulcer of unspecified site, unspecified stage (5) Multiple sclerosis Code(s): G35 - MULTIPLE SCLEROSIS (6) Functional quadriplegia Code(s): R53.2 - FUNCTIONAL QUADRIPLEGIA IMP: Acute on Chronic Hypoxic and Hypercapneic Respiratory Failure Pneumonia UTI Sepsis Multiple Sclerosis Functional Quadriplegia PLAN: - Trach collar as tolerated - ABX per ID - monitor urine output, creatinine - taper Fio2 to keep Spo2 >90% - enteral feeds - DVT/GI prophylaxis Dr Fox
[2018-03-13] MEDS: ACETAMINOPHEN 650 MG/20.3 ML ORAL SOLUTION (CUPS) NGT PRN ×2 (12:29→21:56)
[2018-03-13 12:32] LABS: ANION GAP 4 MMOL/L (8-16); BLOOD UREA NITROGEN 18 mg/dL (7-18); CALCIUM 8.4 mg/dL (8.5-10.1); CHLORIDE 107 mmol/L (98-107); CO2 31 mmol/L (21-32); CREATININE 0.3 mg/dL (0.55-1.3); GLUCOSE,RANDOM 83 mg/dL (74-106); MAGNESIUM 1.8 mg/dL (1.8-2.4); POTASSIUM 4.4 mmol/L (3.5-5.1); SODIUM 141 mmol/L (136-145)
[2018-03-13] MEDS: BACITRACIN 15 GM TUBE TOPICAL OINTMENT TP SCH ×2 (12:34→21:56)
--- NOTE | 2018-03-13 13:04 | PN ---
Progress Note, Physician Chief Complaint: AWAKE ALERT FRIEND BEDSIDE STILL HAVING NON-BLOODY DIARRHEA - Current Medication List Current Medications: Active Medications Acetaminophen (Tylenol Oral Solution -) 650 mg NGT Q6H PRN PRN Reason: PAIN LEVEL 1-5 Last Admin: 03/13/18 12:29 Dose: 650 mg Albuterol/Ipratropium (Duoneb -) 1 amp NEB RQID [facility] Last Admin: 03/13/18 12:11 Dose: 1 amp Ascorbic Acid (Vitamin C Oral Solution -) 500 mg PO DAILY [facility] Last Admin: 03/13/18 12:04 Dose: 500 mg Bacitracin (Bacitracin -) 1 applic TP BID [facility] Last Admin: 03/13/18 12:34 Dose: 1 applic Carbamazepine (Tegretol -) 100 mg PO TID [facility] Last Admin: 03/13/18 06:57 Dose: Not Given Collagenase (Santyl -) 1 applic TP DAILY [facility]; Protocol Last Admin: 03/13/18 10:56 Dose: 1 applic Ferrous Sulfate (Feosol) 300 mg GT DAILY [facility] Last Admin: 03/13/18 12:03 Dose: 300 mg Folic Acid (Folic Acid -) 1 mg PO DAILY [facility] Last Admin: 03/13/18 12:04 Dose: 1 mg Sodium Chloride (Normal Saline -) 1,000 mls @ 100 mls/hr IV ASDIR [facility] Last Admin: 03/13/18 10:51 Dose: 100 mls/hr Lactobacillus Acidophilus (Bacid -) 1 tab PO BID [facility] Last Admin: 03/13/18 12:03 Dose: 1 tab Levothyroxine Sodium (Synthroid -) 112 mcg PO DAILY@0700 [facility] Last Admin: 03/13/18 06:58 Dose: Not Given Loratadine (Claritin -) 10 mg PO DAILY [facility] Last Admin: 03/13/18 12:03 Dose: 10 mg Mirtazapine (Remeron -) 7.5 mg PO HS [facility] Last Admin: 03/12/18 22:46 Dose: 7.5 mg Nystatin/Triamcinolone Acetonide (Mycolog Ii Cream -) 1 applic TP BID [facility] Last Admin: 03/13/18 10:56 Dose: 1 applic Pantoprazole Sodium (Protonix Iv) 40 mg IVPUSH BID [facility] Last Admin: 03/13/18 10:51 Dose: 40 mg Sertraline HCl (Zoloft -) 50 mg PO DAILY [facility] Last Admin: 03/13/18 12:03 Dose: 50 mg Vancomycin HCl (Vancomycin Oral Solution) 250 mg PO Q6HPO [facility] Last Admin: 03/13/18 12:04 Dose: 250 mg - Objective Vital Signs: Vital Signs Temperature 98 F 03/13/18 10:00 Pulse Rate 64 03/13/18 10:00 Respiratory Rate 14 03/13/18 10:00 Blood Pressure 140/53 L 03/13/18 10:00 O2 Sat by Pulse Oximetry (%) 98 03/12/18 20:32 Constitutional: Yes: Mild Distress Eyes: Yes: WNL HENT: Yes: WNL Neck: Yes: WNL Cardiovascular: Yes: Regular Rate and Rhythm Respiratory: Yes: Mechanically Ventilated (TRACHEOSTOMY) Gastrointestinal: Yes: Soft Genitourinary: Yes: Incontinence Musculoskeletal: Yes: Muscle Weakness Integumentary: Yes: Pressure Ulcer Wound/Incision: Yes: Dressing Dry and Intact, Unapproximated Neurological: Yes: Loss of Sensation, Numbness, Pre-Existing Deficit, Unsteady Gait, Weakness ...Motor Strength: LLE, RLE Psychiatric: Yes: Other Labs: CBC, BMP 03/13/18 06:35 INR, PTT INR 1.19 (0.83-1.09) H 03/05/18 15:10 Fibrinogen > 500.0 mg/dL (238-498) H 02/27/18 05:08 Problem List - Problems (1) Acute on chronic respiratory failure with hypoxia and hypercapnia Code(s): J96.21 - ACUTE AND CHRONIC RESPIRATORY FAILURE WITH HYPOXIA; J96.22 - ACUTE AND CHRONIC RESPIRATORY FAILURE WITH HYPERCAPNIA (2) Decubital ulcer Code(s): L89.90 - PRESSURE ULCER OF UNSPECIFIED SITE, UNSPECIFIED STAGE Qualifiers: Pressure injury location: unspecified location Pressure injury stage: unspecified pressure injury stage Qualified Code(s): L89.90 - Pressure ulcer of unspecified site, unspecified stage (3) Depression Code(s): F32.9 - MAJOR DEPRESSIVE DISORDER, SINGLE EPISODE, UNSPECIFIED (4) Presence of intrathecal baclofen pump Code(s): Z98.89 - OTHER SPECIFIED POSTPROCEDURAL STATES * DO NOT USE * (5) Sacral decubitus ulcer, stage IV Code(s): L89.154 - PRESSURE ULCER OF SACRAL REGION, STAGE 4 (6) Urinary tract infection Code(s): N39.0 - URINARY TRACT INFECTION, SITE NOT SPECIFIED Qualifiers: Urinary tract infection type: site unspecified Hematuria presence: with hematuria Qualified Code(s): N39.0 - Urinary tract infection, site not specified; R31.9 - Hematuria, unspecified (7) Adrenal insufficiency Code(s): E27.40 - UNSPECIFIED ADRENOCORTICAL INSUFFICIENCY (8) Altered mental status Code(s): R41.82 - ALTERED MENTAL STATUS, UNSPECIFIED (9) Chronic hypercapnic respiratory failure Code(s): J96.12 - CHRONIC RESPIRATORY FAILURE WITH HYPERCAPNIA (10) Functional quadriplegia Code(s): R53.2 - FUNCTIONAL QUADRIPLEGIA (11) Multiple sclerosis Code(s): G35 - MULTIPLE SCLEROSIS (12) Muscle spasticity Code(s): M62.838 - OTHER MUSCLE SPASM (13) C. difficile diarrhea Code(s): A04.72 - ENTEROCOLITIS D/T CLOSTRIDIUM DIFFICILE, NOT SPCF RECUR Assessment/Plan IV ABX LOW FIBER DIET/NGT ON PIVOT FEEDS GI F/U WOUND CARE SKIN CARE DVT PROPHYLAXIS RESP SUPPORT ON TRACHEOSTOMY VENT STOOL FOR CDIFF IMODIUM LIQUID PRN
[2018-03-13 14:00] LABS: HEMATOCRIT 27.9 % (32.4-45.2); HEMOGLOBIN 8.8 GM/dL (10.7-15.3); MCH 30.3 pg (25.7-33.7); MCHC 31.6 g/dl (32.0-36.0); MEAN CELL VOLUME 95.8 fl (80-96); MEAN PLT VOLUME 8.7 fl (7.5-11.1); PLATELET COUNT 421 K/MM3 (134-434); RBC 2.91 M/mm3 (3.60-5.2); RDW 15.7 % (11.6-15.6); WHITE BLOOD COUNT 5.8 K/mm3 (4.0-10.0)
[2018-03-13] MEDS ORDERED: PT OWN MED DRAWER 7, Y5N ONE (15:05)
[2018-03-13] MEDS: LOPERAMIDE HCL 1 MG/5 ML UNIT DOSE CUP PO PRN ×2 (15:15→23:39)
[2018-03-13] MEDS: MIRTAZAPINE 15 MG TABLET (FP) PO SCH (21:56)
[2018-03-14] MEDS: LEVOTHYROXINE NA 112 MCG TABLET (FP) PO SCH (06:23)
[2018-03-14] MEDS: VANCOMYCIN 250 MG/5 ML ORAL SOLUTION PO SCH ×5 (06:23→23:18)
[2018-03-14] MEDS: carBAMazepine 100 MG TAB.CHEW PO SCH ×3 (06:24→21:00)
[2018-03-14] MEDS: hydrALAZINE HCL 10 MG TABLET PO SCH (07:06)
[2018-03-14] MEDS: ALBUTEROL SO4 2.5/IPRATROPIUM 0.5 INH SOL 3 ML VIAL.NEB. NEB SCH ×4 (07:55→20:24)
--- NOTE | 2018-03-14 09:57 | PN ---
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 Still with excess secretions. Still with diarrhea. (+) C diff. Also on TF which can contribute to diarrhea. Finger occlusion with excellent vocal quality and mildly reduced speech volume. PMV orders received. PMV evaluation performed with trach collar. O2 sat 96-97% with fair Swallowing assessed with delayed swallow onset, with mildly reduced VOM /ROM of swallow reflex. Overtly tolerated single sips of water on a teaspoon. Most important to put pillow behind head to FLEX HEAD at all times, in order to swallow saliva, and especially while eating. REC: PMV as tolerated, with pulse oxymeter in place, and alarm set for desaturation. Nursing, RT, pt and mother educated again regarding PMV protocol. PMV for short periods, observe for fatigue, need to suction. Always remove when sleeping. Put pillow behind head to FLEX HEAD at all times, in order to swallow saliva, and especially while eating. Trial of Dys puree/ sips of thin liquid on a tsp. PMV ON with all PO intake CHIN FLEXED. Ensure compact. Magic cup. Meds crushed and given in applesauce. Feed only when fully alert. Monitor tolerance.When stable, consider d/c NGT.
[2018-03-14] MEDS: SODIUM CHLORIDE 1,000 ML IV SCH ×3 (10:10→15:42)
[2018-03-14] MEDS: COLLAGENASE CLOSTRIDIUM HIST. 30 GRAMS TUBE TP SCH (10:10)
[2018-03-14] MEDS ORDERED: PT OWN MED DRAWER 7, Y5N ONE ×3 (10:12→20:58)
[2018-03-14] MEDS: PANTOPRAZOLE SODIUM 40 MG VIAL IVPUSH SCH (10:15)
[2018-03-14] MEDS: FERROUS SO4 300 MG/5 ML ORAL SOLN UNIT DOSE CUPS GT SCH (10:15)
[2018-03-14] MEDS: LOPERAMIDE HCL 1 MG/5 ML UNIT DOSE CUP PO PRN (10:15)
[2018-03-14] MEDS: LORATADINE 10 MG TABLET PO SCH (10:15)
[2018-03-14] MEDS: ASCORBIC ACID 500 MG/5 ML UNIT DOSE CUP PO SCH (10:16)
[2018-03-14] MEDS: LACTOBACILLUS ACIDOPHILUS 1 TABLET PO SCH ×2 (10:16→21:00)
[2018-03-14] MEDS: MULTIVIT-MINERALS ORAL LIQUID PO SCH (10:16)
[2018-03-14] MEDS: FOLIC ACID 1 MG TABLET (FP) PO SCH (10:16)
[2018-03-14] MEDS: SERTRALINE HCL 50 MG TABLET (FP) PO SCH (10:16)
[2018-03-14] MEDS: BACITRACIN 15 GM TUBE TOPICAL OINTMENT TP SCH ×2 (10:17→23:15)
[2018-03-14] MEDS: NYSTATIN/TRIAMCINOLONE TOPICAL CREAM 15 GM TUBE TP SCH ×2 (12:00→23:15)
--- NOTE | 2018-03-14 12:07 | PN ---
Progress Note, Physician Chief Complaint: UTI R/O sepsis secondary to UTI Pneumonia Toxic metabolic encephalopathy- improved Neurogenic bladder Decubitus ulcer MS History of Present Illness: NAD mental status improving stool OB positive Seen by GI abd/pelvis CT unremarkable Holding H/H well Now has diarrhea Cdiff PCR positive On PO vanco - Current Medication List Current Medications: Active Medications Acetaminophen (Tylenol Oral Solution -) 650 mg NGT Q6H PRN PRN Reason: PAIN LEVEL 1-5 Last Admin: 03/13/18 21:56 Dose: 650 mg Albuterol/Ipratropium (Duoneb -) 1 amp NEB RQID [facility] Last Admin: 03/14/18 11:32 Dose: 1 amp Ascorbic Acid (Vitamin C Oral Solution -) 500 mg PO DAILY [facility] Last Admin: 03/14/18 10:16 Dose: 500 mg Bacitracin (Bacitracin -) 1 applic TP BID [facility] Last Admin: 03/14/18 10:17 Dose: 1 applic Carbamazepine (Tegretol -) 100 mg PO TID [facility] Last Admin: 03/14/18 06:24 Dose: 100 mg Collagenase (Santyl -) 1 applic TP DAILY [facility]; Protocol Last Admin: 03/13/18 10:56 Dose: 1 applic Ferrous Sulfate (Feosol) 300 mg GT DAILY [facility] Last Admin: 03/14/18 10:15 Dose: 300 mg Folic Acid (Folic Acid -) 1 mg PO DAILY [facility] Last Admin: 03/14/18 10:16 Dose: 1 mg Sodium Chloride (Normal Saline -) 1,000 mls @ 100 mls/hr IV ASDIR [facility] Last Admin: 03/14/18 10:10 Dose: Not Given Lactobacillus Acidophilus (Bacid -) 1 tab PO BID [facility] Last Admin: 03/14/18 10:16 Dose: 1 tab Levothyroxine Sodium (Synthroid -) 112 mcg PO DAILY@0700 [facility] Last Admin: 03/14/18 06:23 Dose: 112 mcg Loperamide HCl (Imodium Liquid -) 1 mg PO TID PRN PRN Reason: DIARRHEA Last Admin: 03/14/18 10:15 Dose: 1 mg Loratadine (Claritin -) 10 mg PO DAILY [facility] Last Admin: 03/14/18 10:15 Dose: 10 mg Mirtazapine (Remeron -) 7.5 mg PO HS [facility] Last Admin: 03/13/18 21:56 Dose: 7.5 mg Nystatin/Triamcinolone Acetonide (Mycolog Ii Cream -) 1 applic TP BID [facility] Last Admin: 03/13/18 21:56 Dose: 1 applic Pantoprazole Sodium (Protonix Iv) 40 mg IVPUSH BID [facility] Last Admin: 03/14/18 10:15 Dose: 40 mg Sertraline HCl (Zoloft -) 50 mg PO DAILY [facility] Last Admin: 03/14/18 10:16 Dose: 50 mg Vancomycin HCl (Vancomycin Oral Solution) 250 mg PO Q6HPO [facility] Last Admin: 03/14/18 06:23 Dose: 250 mg - Objective Vital Signs: Vital Signs Temperature 98.2 F 03/14/18 10:00 Pulse Rate 78 03/14/18 10:00 Respiratory Rate 18 03/14/18 10:00 Blood Pressure 150/55 L 03/14/18 10:00 O2 Sat by Pulse Oximetry (%) 97 03/14/18 11:20 Constitutional: Yes: No Distress, Calm, Cachectic Cardiovascular: Yes: Bradycardia Respiratory: Yes: Mechanically Ventilated Gastrointestinal: Yes: Normal Bowel Sounds, Soft Musculoskeletal: Yes: Muscle Weakness Edema: No Peripheral Pulses WNL: Yes Neurological: Yes: Alert, Pre-Existing Deficit Psychiatric: Yes: Alert Labs: CBC, BMP 03/13/18 06:35 03/13/18 06:35 INR, PTT INR 1.19 (0.83-1.09) H 03/05/18 15:10 Fibrinogen > 500.0 mg/dL (238-498) H 02/27/18 05:08 Problem List - Problems (1) Acute on chronic respiratory failure with hypoxia and hypercapnia Assessment/Plan: -pulmonary on board -mechanical vent -wean as tolerated -PMV trial -PO trial -Seen by Speech pathology Code(s): J96.21 - ACUTE AND CHRONIC RESPIRATORY FAILURE WITH HYPOXIA; J96.22 - ACUTE AND CHRONIC RESPIRATORY FAILURE WITH HYPERCAPNIA (2) Decubital ulcer Code(s): L89.90 - PRESSURE ULCER OF UNSPECIFIED SITE, UNSPECIFIED STAGE Qualifiers: Pressure injury location: unspecified location Pressure injury stage: unspecified pressure injury stage Qualified Code(s): L89.90 - Pressure ulcer of unspecified site, unspecified stage (3) Malnutrition Assessment/Plan: -2/2 to poor oral intake -Is on tube feeds via NGT -Prosource Code(s): E46 - UNSPECIFIED PROTEIN-CALORIE MALNUTRITION Qualifiers: Malnutrition type: protein-calorie malnutrition (4) Presence of intrathecal baclofen pump Code(s): Z98.89 - OTHER SPECIFIED POSTPROCEDURAL STATES * DO NOT USE * (5) Sacral decubitus ulcer, stage IV Code(s): L89.154 - PRESSURE ULCER OF SACRAL REGION, STAGE 4 (6) Hx of multiple sclerosis Code(s): Z86.69 - PERSONAL HISTORY OF DIS OF THE NERVOUS SYS AND SENSE ORGANS (7) Metabolic encephalopathy Assessment/Plan: -improving Code(s): G93.41 - METABOLIC ENCEPHALOPATHY (8) Multiple drug resistant organism (MDRO) culture positive Code(s): Z16.24 - RESISTANCE TO MULTIPLE ANTIBIOTICS (9) Anemia Assessment/Plan: -H/H stable -GI consult -Stool OB positive -monitor trend -repeat labs today Code(s): D64.9 - ANEMIA, UNSPECIFIED Qualifiers: Other causes of anemia: other cause, not classified (10) Altered mental status Assessment/Plan: -2/2 to metabolic encephalopathy -much more awake now Code(s): R41.82 - ALTERED MENTAL STATUS, UNSPECIFIED (11) Sepsis Assessment/Plan: -Seen by ID -d/c abx -afebrile -no leukocytosis Code(s): A41.9 - SEPSIS, UNSPECIFIED ORGANISM (12) Diarrhea Assessment/Plan: -d/c abx -Bacid BID -Cdiff pcr positive -On PO vanco -ID on board Code(s): R19.7 - DIARRHEA, UNSPECIFIED Assessment/Plan see problem list
--- NOTE | 2018-03-14 12:17 | PN ---
Progress Note (short form) - Note Progress Note: Awake and alert Trach collar, 35% FiO2. Able to take apple sauce this AM. Still with diarrhea, but better. Intake & Output 03/11/18 03/12/18 03/13/18 03/14/18 23:59 23:59 23:59 23:59 Intake Total 3870 4595 3700 2370 Output Total 5900 2900 2800 100 Balance -2030 8275 641 3243 Last Vital Signs Temp Pulse Resp BP Pulse Ox 98.2 F 78 18 150/55 L 97 03/14/18 10:00 03/14/18 10:00 03/14/18 10:00 03/14/18 10:00 03/14/18 11:20 Active Medications Acetaminophen (Tylenol Oral Solution -) 650 mg NGT Q6H PRN PRN Reason: PAIN LEVEL 1-5 Last Admin: 03/13/18 21:56 Dose: 650 mg Albuterol/Ipratropium (Duoneb -) 1 amp NEB RQID [facility] Last Admin: 03/14/18 11:32 Dose: 1 amp Ascorbic Acid (Vitamin C Oral Solution -) 500 mg PO DAILY [facility] Last Admin: 03/14/18 10:16 Dose: 500 mg Bacitracin (Bacitracin -) 1 applic TP BID [facility] Last Admin: 03/14/18 10:17 Dose: 1 applic Carbamazepine (Tegretol -) 100 mg PO TID [facility] Last Admin: 03/14/18 06:24 Dose: 100 mg Collagenase (Santyl -) 1 applic TP DAILY [facility]; Protocol Last Admin: 03/14/18 10:10 Dose: 1 applic Ferrous Sulfate (Feosol) 300 mg GT DAILY [facility] Last Admin: 03/14/18 10:15 Dose: 300 mg Folic Acid (Folic Acid -) 1 mg PO DAILY [facility] Last Admin: 03/14/18 10:16 Dose: 1 mg Sodium Chloride (Normal Saline -) 1,000 mls @ 100 mls/hr IV ASDIR [facility] Last Admin: 03/14/18 10:10 Dose: Not Given Lactobacillus Acidophilus (Bacid -) 1 tab PO BID [facility] Last Admin: 03/14/18 10:16 Dose: 1 tab Levothyroxine Sodium (Synthroid -) 112 mcg PO DAILY@0700 [facility] Last Admin: 03/14/18 06:23 Dose: 112 mcg Loperamide HCl (Imodium Liquid -) 1 mg PO TID PRN PRN Reason: DIARRHEA Last Admin: 03/14/18 10:15 Dose: 1 mg Loratadine (Claritin -) 10 mg PO DAILY [facility] Last Admin: 03/14/18 10:15 Dose: 10 mg Mirtazapine (Remeron -) 7.5 mg PO HS [facility] Last Admin: 03/13/18 21:56 Dose: 7.5 mg Nystatin/Triamcinolone Acetonide (Mycolog Ii Cream -) 1 applic TP BID [facility] Last Admin: 03/14/18 12:00 Dose: 1 applic Pantoprazole Sodium (Protonix Iv) 40 mg IVPUSH BID [facility] Last Admin: 03/14/18 10:15 Dose: 40 mg Sertraline HCl (Zoloft -) 50 mg PO DAILY [facility] Last Admin: 03/14/18 10:16 Dose: 50 mg Vancomycin HCl (Vancomycin Oral Solution) 250 mg PO Q6HPO [facility] Last Admin: 03/14/18 12:06 Dose: 250 mg Gen: Awake and alert, NAD on Trach collar Heart: RRR Lung: decresed breath sounds at the bases Abd: soft, nontender Ext: no edema Laboratory Results - last 24 hr 03/13/18 03/13/18 06:35 06:35 WBC 5.8 RBC 2.91 L Hgb 8.8 L Hct 27.9 L MCV 95.8 MCH 30.3 MCHC 31.6 L RDW 15.7 H Plt Count 421 MPV 8.7 Sodium 141 Potassium 4.4 Chloride 107 Carbon Dioxide 31 Anion Gap 4 L BUN 18 Creatinine 0.3 L Creat Clearance w eGFR > 60 Random Glucose 83 Calcium 8.4 L Magnesium 1.8 Problem List - Problems (1) Acute on chronic respiratory failure with hypoxia and hypercapnia Code(s): J96.21 - ACUTE AND CHRONIC RESPIRATORY FAILURE WITH HYPOXIA; J96.22 - ACUTE AND CHRONIC RESPIRATORY FAILURE WITH HYPERCAPNIA (2) Urinary tract infection Code(s): N39.0 - URINARY TRACT INFECTION, SITE NOT SPECIFIED Qualifiers: Urinary tract infection type: site unspecified Hematuria presence: with hematuria Qualified Code(s): N39.0 - Urinary tract infection, site not specified; R31.9 - Hematuria, unspecified (3) Sepsis Code(s): A41.9 - SEPSIS, UNSPECIFIED ORGANISM (4) Decubital ulcer Code(s): L89.90 - PRESSURE ULCER OF UNSPECIFIED SITE, UNSPECIFIED STAGE Qualifiers: Pressure injury location: unspecified location Pressure injury stage: unspecified pressure injury stage Qualified Code(s): L89.90 - Pressure ulcer of unspecified site, unspecified stage (5) Multiple sclerosis Code(s): G35 - MULTIPLE SCLEROSIS (6) Functional quadriplegia Code(s): R53.2 - FUNCTIONAL QUADRIPLEGIA IMP: Acute on Chronic Hypoxic and Hypercapneic Respiratory Failure Pneumonia UTI Sepsis Multiple Sclerosis Functional Quadriplegia PLAN: - Trach collar as tolerated - Cleared by S/S for PO intake - ABX per ID - taper Fio2 to keep Spo2 >90% - enteral feeds - DVT/GI prophylaxis Dr Fox
[2018-03-14 13:21] LABS: ALBUMIN 2.2 g/dl (3.4-5.0); ALK PHOS 151 U/L (45-117); ANION GAP 4 MMOL/L (8-16); BILIRUBIN,TOTAL 0.2 mg/dL (0.2-1); BLOOD UREA NITROGEN 19 mg/dL (7-18); CALCIUM 8.8 mg/dL (8.5-10.1); CHLORIDE 105 mmol/L (98-107); CO2 30 mmol/L (21-32); CREATININE 0.4 mg/dL (0.55-1.3); GLUCOSE,RANDOM 94 mg/dL (74-106); POTASSIUM 4.6 mmol/L (3.5-5.1); SGOT/AST 16 U/L (15-37); SGPT/ALT 22 U/L (13-61); SODIUM 139 mmol/L (136-145); TOT PROT 7.1 g/dl (6.4-8.2)
[2018-03-14 14:39] LABS: BASO % 0.8 % (0-2.0); EOS % 3.4 % (0-4.5); HEMATOCRIT 31.7 % (32.4-45.2); HEMOGLOBIN 10.1 GM/dL (10.7-15.3); LYMPH % 18.3 % (8-40); MCH 30.4 pg (25.7-33.7); MCHC 31.8 g/dl (32.0-36.0); MEAN CELL VOLUME 95.4 fl (80-96); MEAN PLT VOLUME 8.9 fl (7.5-11.1); MONO % 7.2 % (3.8-10.2); NEUT % 70.3 % (42.8-82.8); PLATELET COUNT 444 K/MM3 (134-434); RBC 3.32 M/mm3 (3.60-5.2); RDW 15.7 % (11.6-15.6); WHITE BLOOD COUNT 6.3 K/mm3 (4.0-10.0)
[2018-03-14] MEDS: ACETAMINOPHEN 650 MG/20.3 ML ORAL SOLUTION (CUPS) NGT PRN (15:41)
[2018-03-14] MEDS: MIRTAZAPINE 15 MG TABLET (FP) PO SCH (21:00)
[2018-03-14] MEDS: PANTOPRAZOLE 40 MG TABLET (FP) PO SCH (21:00)
[2018-03-15] MEDS: carBAMazepine 100 MG TAB.CHEW PO SCH ×3 (06:01→21:23)
[2018-03-15] MEDS: LEVOTHYROXINE NA 112 MCG TABLET (FP) PO SCH (06:01)
[2018-03-15] MEDS: SODIUM CHLORIDE 1,000 ML IV SCH (06:13)
[2018-03-15 07:03] LABS: EOS % 6.1 % (0-4.5); HEMATOCRIT 30.5 % (32.4-45.2); HEMOGLOBIN 9.6 GM/dL (10.7-15.3); LYMPH % 27.6 % (8-40); MCH 30.1 pg (25.7-33.7); MCHC 31.6 g/dl (32.0-36.0); MEAN CELL VOLUME 95.3 fl (80-96); MEAN PLT VOLUME 8.2 fl (7.5-11.1); MONO % 9.7 % (3.8-10.2); NEUT % 55.6 % (42.8-82.8); PLATELET COUNT 380 K/MM3 (134-434); RDW 15.5 % (11.6-15.6); WHITE BLOOD COUNT 4.6 K/mm3 (4.0-10.0)
[2018-03-15] MEDS: VANCOMYCIN 250 MG/5 ML ORAL SOLUTION PO SCH ×4 (07:10→23:26)
[2018-03-15 07:23] LABS: ALBUMIN 2.1 g/dl (3.4-5.0); ALK PHOS 152 U/L (45-117); ANION GAP 5 MMOL/L (8-16); BILIRUBIN,TOTAL 0.2 mg/dL (0.2-1); BLOOD UREA NITROGEN 15 mg/dL (7-18); CALCIUM 8.8 mg/dL (8.5-10.1); CHLORIDE 104 mmol/L (98-107); CO2 30 mmol/L (21-32); CREATININE 0.4 mg/dL (0.55-1.3); GLUCOSE,RANDOM 83 mg/dL (74-106); POTASSIUM 4.3 mmol/L (3.5-5.1); SGOT/AST 20 U/L (15-37); SGPT/ALT 22 U/L (13-61); SODIUM 139 mmol/L (136-145); TOT PROT 6.9 g/dl (6.4-8.2)
[2018-03-15] MEDS: ALBUTEROL SO4 2.5/IPRATROPIUM 0.5 INH SOL 3 ML VIAL.NEB. NEB SCH ×4 (07:52→20:40)
--- NOTE | 2018-03-15 09:39 | DS ---
Physical Examination Vital Signs: Vital Signs Temperature 98.6 F 03/15/18 06:00 Pulse Rate 86 03/15/18 08:41 Respiratory Rate 15 03/15/18 06:39 Blood Pressure 130/56 L 03/15/18 06:00 O2 Sat by Pulse Oximetry (%) 97 03/15/18 08:41 Cardiovascular: Yes: S1, S2 Respiratory: Yes: Regular, CTA Bilaterally Gastrointestinal: Yes: Normal Bowel Sounds, Soft. No: Distention Labs: CBC, BMP 03/15/18 06:00 03/15/18 06:00 Discharge Summary Reason For Visit: URINARY TRACT INFECTION DEPENDENT ON VENTILATOR Current Active Problems Acute on chronic respiratory failure with hypoxia and hypercapnia (Acute) C. difficile diarrhea (Acute) Decubital ulcer (Acute) Depression (Acute) Malnutrition (Acute) Presence of intrathecal baclofen pump (Acute) Sacral decubitus ulcer, stage IV (Acute) Urinary tract infection (Acute) Hospital Course: - Problems (1) Acute on chronic respiratory failure with hypoxia and hypercapnia Assessment/Plan: -pulmonary on board -mechanical vent -wean as tolerated -PMV trial -PO trial -Seen by Speech pathology Code(s): J96.21 - ACUTE AND CHRONIC RESPIRATORY FAILURE WITH HYPOXIA; J96.22 - ACUTE AND CHRONIC RESPIRATORY FAILURE WITH HYPERCAPNIA (2) Decubital ulcer Code(s): L89.90 - PRESSURE ULCER OF UNSPECIFIED SITE, UNSPECIFIED STAGE Qualifiers: Pressure injury location: unspecified location Pressure injury stage: unspecified pressure injury stage Qualified Code(s): L89.90 - Pressure ulcer of unspecified site, unspecified stage (3) Malnutrition Assessment/Plan: -2/2 to poor oral intake -Is on tube feeds via NGT -[employer] Code(s): E46 - UNSPECIFIED PROTEIN-CALORIE MALNUTRITION Qualifiers: Malnutrition type: protein-calorie malnutrition (4) Presence of intrathecal baclofen pump Code(s): Z98.89 - OTHER SPECIFIED POSTPROCEDURAL STATES * DO NOT USE * (5) Sacral decubitus ulcer, stage IV Code(s): L89.154 - PRESSURE ULCER OF SACRAL REGION, STAGE 4 (6) Hx of multiple sclerosis Code(s): Z86.69 - PERSONAL HISTORY OF DIS OF THE NERVOUS SYS AND SENSE ORGANS (7) Metabolic encephalopathy Assessment/Plan: -improving Code(s): G93.41 - METABOLIC ENCEPHALOPATHY (8) Multiple drug resistant organism (MDRO) culture positive Code(s): Z16.24 - RESISTANCE TO MULTIPLE ANTIBIOTICS (9) Anemia Assessment/Plan: -H/H stable -GI consult -Stool OB positive -monitor trend -repeat labs today Code(s): D64.9 - ANEMIA, UNSPECIFIED Qualifiers: Other causes of anemia: other cause, not classified (10) Altered mental status Assessment/Plan: -2/2 to metabolic encephalopathy -much more awake now Code(s): R41.82 - ALTERED MENTAL STATUS, UNSPECIFIED (11) Sepsis Assessment/Plan: -Seen by ID -d/c abx -afebrile -no leukocytosis Code(s): A41.9 - SEPSIS, UNSPECIFIED ORGANISM (12) Diarrhea Assessment/Plan: -d/c abx -Bacid BID -Cdiff pcr positive -On PO vanco -ID on board Code(s): R19.7 - DIARRHEA, UNSPECIFIED Condition: Stable - Instructions Diet, Activity, Other Instructions: *COMPLETE VANCO OR[employer] SOLUTIONS FOR 10DAYS(STARTED 03/10/2018-03/20/2018) PER ID DR. MUÑIZ Disposition: [facility]NS/HOME HEALTH CARE - Home Medications Comprehensive Discharge Medication List: Ambulatory Orders Levothyroxine [Synthroid -] 100 mcg PO DAILY@0700 #30 tablet 06/24/16 Carbamazepine 100 mg PO TID 01/03/18 Loratadine 10 mg PO DAILY 01/03/18 Sertraline HCl 50 mg PO DAILY 01/03/18 Albuterol 2.5/Ipratropium 0.5 [Duoneb -] 1 amp NEB RQID #120 amp 03/15/18 Ascorbic Acid [Vitamin C -] 500 mg PO DAILY #30 tablet 03/15/18 Bacitracin - [Bacitracin Topical Ointment -] 1 applic TP BID tube 03/15/18 Collagenase Clostridium Hist. [Santyl -] 1 applic TP DAILY #2 tube 03/15/18 Ferrous Sulfate [Feosol] 325 mg PO DAILY #30 tablet 03/15/18 Folic Acid - 1 mg PO DAILY #30 tablet 03/15/18 Lactobacillus Acidophilus [Bacid -] 1 tab PO BID #0 tab 03/15/18 Loperamide HCl Liquid [Imodium Liquid -] 1 mg PO TID PRN #10 cup 03/15/18 Mirtazapine [Remeron -] 7.5 mg PO HS #30 tablet 03/15/18 Nystatin/Triamcinolone Top Cr [Mycolog II -] 1 applic TP BID #60 grams 03/15/18 Pantoprazole Sodium [Protonix -] 40 mg PO BID tablet.ec 03/15/18 Vancomycin Oral Solution 250 mg PO Q6HPO #200 ml 03/15/18
[2018-03-15] MEDS: LOPERAMIDE HCL 1 MG/5 ML UNIT DOSE CUP PO PRN (10:41)
[2018-03-15] MEDS: FOLIC ACID 1 MG TABLET (FP) PO SCH (10:41)
[2018-03-15] MEDS: FERROUS SO4 300 MG/5 ML ORAL SOLN UNIT DOSE CUPS GT SCH (10:41)
[2018-03-15] MEDS: SERTRALINE HCL 50 MG TABLET (FP) PO SCH (10:41)
[2018-03-15] MEDS: ASCORBIC ACID 500 MG/5 ML UNIT DOSE CUP PO SCH (10:41)
[2018-03-15] MEDS: LORATADINE 10 MG TABLET PO SCH (10:41)
[2018-03-15] MEDS: PANTOPRAZOLE 40 MG TABLET (FP) PO SCH ×2 (10:41→21:22)
[2018-03-15] MEDS: LACTOBACILLUS ACIDOPHILUS 1 TABLET PO SCH ×2 (10:41→21:22)
[2018-03-15] MEDS: BACITRACIN 15 GM TUBE TOPICAL OINTMENT TP SCH ×2 (10:42→21:24)
[2018-03-15] MEDS: MULTIVIT-MINERALS ORAL LIQUID PO SCH (10:42)
--- NOTE | 2018-03-15 10:55 | PN ---
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 Educated pt and mom on continued use of PMV, especially meal time, Head FLEXED while eating,Mouth care. Add Magic cup/ensure for increased density of nutritional intake.
[2018-03-15] MEDS: NYSTATIN/TRIAMCINOLONE TOPICAL CREAM 15 GM TUBE TP SCH ×2 (11:30→21:24)
[2018-03-15] MEDS: COLLAGENASE CLOSTRIDIUM HIST. 30 GRAMS TUBE TP SCH (11:30)
[2018-03-15] MEDS ORDERED: PT OWN MED DRAWER 7, Y5N ONE (13:19)
--- NOTE | 2018-03-15 13:30 | PN ---
Progress Note (short form) - Note Progress Note: Awake and alert Trach collar, 35% FiO2. Able to eat breakfast and lunch without issues today. No acute events overnight. Intake & Output 03/12/18 03/13/18 03/14/18 03/15/18 23:59 23:59 23:59 23:59 Intake Total 4595 3700 4335 900 Output Total 2900 2800 1600 500 Balance 5635 188 2250 400 Last Vital Signs Temp Pulse Resp BP Pulse Ox 97.9 F 84 18 138/57 L 97 03/15/18 10:00 03/15/18 13:28 03/15/18 10:00 03/15/18 10:00 03/15/18 13:28 Active Medications Acetaminophen (Tylenol Oral Solution -) 650 mg NGT Q6H PRN PRN Reason: PAIN LEVEL 1-5 Last Admin: 03/14/18 15:41 Dose: 650 mg Albuterol/Ipratropium (Duoneb -) 1 amp NEB RQID [facility] Last Admin: 03/15/18 12:29 Dose: 1 amp Ascorbic Acid (Vitamin C Oral Solution -) 500 mg PO DAILY [facility] Last Admin: 03/15/18 10:41 Dose: 500 mg Bacitracin (Bacitracin -) 1 applic TP BID [facility] Last Admin: 03/15/18 10:42 Dose: 1 applic Carbamazepine (Tegretol -) 100 mg PO TID [facility] Last Admin: 03/15/18 13:21 Dose: 100 mg Collagenase (Santyl -) 1 applic TP DAILY [facility]; Protocol Last Admin: 03/15/18 11:30 Dose: 1 applic Ferrous Sulfate (Feosol) 300 mg GT DAILY [facility] Last Admin: 03/15/18 10:41 Dose: 300 mg Folic Acid (Folic Acid -) 1 mg PO DAILY [facility] Last Admin: 03/15/18 10:41 Dose: 1 mg Lactobacillus Acidophilus (Bacid -) 1 tab PO BID [facility] Last Admin: 03/15/18 10:41 Dose: 1 tab Levothyroxine Sodium (Synthroid -) 112 mcg PO DAILY@0700 [facility] Last Admin: 03/15/18 06:01 Dose: 112 mcg Loperamide HCl (Imodium Liquid -) 1 mg PO TID PRN PRN Reason: DIARRHEA Last Admin: 03/15/18 10:41 Dose: 1 mg Loratadine (Claritin -) 10 mg PO DAILY [facility] Last Admin: 03/15/18 10:41 Dose: 10 mg Mirtazapine (Remeron -) 7.5 mg PO HS [facility] Last Admin: 03/14/18 21:00 Dose: 7.5 mg Nystatin/Triamcinolone Acetonide (Mycolog Ii Cream -) 1 applic TP BID [facility] Last Admin: 03/15/18 11:30 Dose: 1 applic Pantoprazole Sodium (Protonix -) 40 mg PO BID [facility] Last Admin: 03/15/18 10:41 Dose: 40 mg Sertraline HCl (Zoloft -) 50 mg PO DAILY [facility] Last Admin: 03/15/18 10:41 Dose: 50 mg Vancomycin HCl (Vancomycin Oral Solution) 250 mg PO Q6HPO [facility] Last Admin: 03/15/18 13:21 Dose: 250 mg Gen: Awake and alert, NAD on Trach collar Heart: RRR Lung: decresed breath sounds at the bases Abd: soft, nontender Ext: no edema Laboratory Results - last 24 hr 03/14/18 03/15/18 03/15/18 12:38 06:00 06:00 WBC 6.3 4.6 RBC 3.32 L 3.20 L Hgb 10.1 L 9.6 L Hct 31.7 L 30.5 L MCV 95.4 95.3 MCH 30.4 30.1 MCHC 31.8 L 31.6 L RDW 15.7 H 15.5 Plt Count 444 H 380 MPV 8.9 8.2 Absolute Neuts (auto) 4.4 2.6 Neutrophils % 70.3 55.6 D Lymphocytes % 18.3 27.6 D Monocytes % 7.2 9.7 Eosinophils % 3.4 6.1 H Basophils % 0.8 1.0 Nucleated RBC % 0 0 Sodium 139 Potassium 4.3 Chloride 104 Carbon Dioxide 30 Anion Gap 5 L BUN 15 Creatinine 0.4 L Creat Clearance w eGFR > 60 Random Glucose 83 Calcium 8.8 Total Bilirubin 0.2 AST 20 ALT 22 Alkaline Phosphatase 152 H Total Protein 6.9 Albumin 2.1 L Problem List - Problems (1) Acute on chronic respiratory failure with hypoxia and hypercapnia Code(s): J96.21 - ACUTE AND CHRONIC RESPIRATORY FAILURE WITH HYPOXIA; J96.22 - ACUTE AND CHRONIC RESPIRATORY FAILURE WITH HYPERCAPNIA (2) Urinary tract infection Code(s): N39.0 - URINARY TRACT INFECTION, SITE NOT SPECIFIED Qualifiers: Urinary tract infection type: site unspecified Hematuria presence: with hematuria Qualified Code(s): N39.0 - Urinary tract infection, site not specified; R31.9 - Hematuria, unspecified (3) Sepsis Code(s): A41.9 - SEPSIS, UNSPECIFIED ORGANISM (4) Decubital ulcer Code(s): L89.90 - PRESSURE ULCER OF UNSPECIFIED SITE, UNSPECIFIED STAGE Qualifiers: Pressure injury location: unspecified location Pressure injury stage: unspecified pressure injury stage Qualified Code(s): L89.90 - Pressure ulcer of unspecified site, unspecified stage (5) Multiple sclerosis Code(s): G35 - MULTIPLE SCLEROSIS (6) Functional quadriplegia Code(s): R53.2 - FUNCTIONAL QUADRIPLEGIA IMP: Acute on Chronic Hypoxic and Hypercapneic Respiratory Failure Pneumonia UTI Sepsis Multiple Sclerosis Functional Quadriplegia PLAN: - Trach collar as tolerated - PO as tolerated - ABX per ID - taper Fio2 to keep Spo2 >90% - enteral feeds - DVT/GI prophylaxis - D/C planning Dr Fox
[2018-03-15] MEDS: MIRTAZAPINE 15 MG TABLET (FP) PO SCH (21:23)
[2018-03-16] MEDS: LEVOTHYROXINE NA 112 MCG TABLET (FP) PO SCH (06:13)
[2018-03-16] MEDS: carBAMazepine 100 MG TAB.CHEW PO SCH ×2 (06:13→14:16)
[2018-03-16] MEDS: VANCOMYCIN 250 MG/5 ML ORAL SOLUTION PO SCH ×2 (06:14→12:42)
[2018-03-16 07:21] LABS: BASO % 1.1 % (0-2.0); EOS % 5.3 % (0-4.5); HEMATOCRIT 33.2 % (32.4-45.2); HEMOGLOBIN 10.4 GM/dL (10.7-15.3); LYMPH % 24.5 % (8-40); MCHC 31.4 g/dl (32.0-36.0); MEAN CELL VOLUME 95.5 fl (80-96); MEAN PLT VOLUME 8.5 fl (7.5-11.1); MONO % 9.3 % (3.8-10.2); NEUT % 59.8 % (42.8-82.8); PLATELET COUNT 410 K/MM3 (134-434); RBC 3.47 M/mm3 (3.60-5.2); RDW 15.4 % (11.6-15.6); WHITE BLOOD COUNT 5.1 K/mm3 (4.0-10.0)
[2018-03-16] MEDS: ALBUTEROL SO4 2.5/IPRATROPIUM 0.5 INH SOL 3 ML VIAL.NEB. NEB SCH ×3 (07:40→15:54)
[2018-03-16 07:54] LABS: ALBUMIN 2.3 g/dl (3.4-5.0); ALK PHOS 165 U/L (45-117); ANION GAP 4 MMOL/L (8-16); BILIRUBIN,TOTAL 0.2 mg/dL (0.2-1); BLOOD UREA NITROGEN 13 mg/dL (7-18); CALCIUM 9.4 mg/dL (8.5-10.1); CHLORIDE 101 mmol/L (98-107); CO2 32 mmol/L (21-32); CREATININE 0.4 mg/dL (0.55-1.3); GLUCOSE,RANDOM 84 mg/dL (74-106); POTASSIUM 4.7 mmol/L (3.5-5.1); SGOT/AST 19 U/L (15-37); SGPT/ALT 24 U/L (13-61); SODIUM 137 mmol/L (136-145); TOT PROT 7.4 g/dl (6.4-8.2)
--- NOTE | 2018-03-16 08:56 | DS ---
Physical Examination Vital Signs: Vital Signs Temperature 98.1 F 03/16/18 06:00 Pulse Rate 72 03/16/18 06:44 Respiratory Rate 12 03/16/18 06:44 Blood Pressure 130/50 L 03/16/18 06:00 O2 Sat by Pulse Oximetry (%) 98 03/16/18 06:44 Cardiovascular: Yes: Regular Rate and Rhythm Respiratory: Yes: Regular, CTA Bilaterally Gastrointestinal: Yes: Normal Bowel Sounds, Soft Labs: CBC, BMP 03/16/18 06:30 03/16/18 06:30 Discharge Summary Reason For Visit: URINARY TRACT INFECTION DEPENDENT ON VENTILATOR Current Active Problems Acute on chronic respiratory failure with hypoxia and hypercapnia (Acute) C. difficile diarrhea (Acute) Decubital ulcer (Acute) Depression (Acute) Malnutrition (Acute) Presence of intrathecal baclofen pump (Acute) Sacral decubitus ulcer, stage IV (Acute) Urinary tract infection (Acute) Hospital Course: - Problems (1) Acute on chronic respiratory failure with hypoxia and hypercapnia Assessment/Plan: -pulmonary on board -mechanical vent -wean as tolerated -PMV trial -PO trial -Seen by Speech pathology Code(s): J96.21 - ACUTE AND CHRONIC RESPIRATORY FAILURE WITH HYPOXIA; J96.22 - ACUTE AND CHRONIC RESPIRATORY FAILURE WITH HYPERCAPNIA (2) Decubital ulcer Code(s): L89.90 - PRESSURE ULCER OF UNSPECIFIED SITE, UNSPECIFIED STAGE Qualifiers: Pressure injury location: unspecified location Pressure injury stage: unspecified pressure injury stage Qualified Code(s): L89.90 - Pressure ulcer of unspecified site, unspecified stage (3) Malnutrition Assessment/Plan: -2/2 to poor oral intake -Is on tube feeds via NGT -[employer]source Code(s): E46 - UNSPECIFIED PROTEIN-CALORIE MALNUTRITION Qualifiers: Malnutrition type: protein-calorie malnutrition (4) Presence of intrathecal baclofen pump Code(s): Z98.89 - OTHER SPECIFIED POSTPROCEDURAL STATES * DO NOT USE * (5) Sacral decubitus ulcer, stage IV -Per Dr Miranda -Continue with santyl Code(s): L89.154 - PRESSURE ULCER OF SACRAL REGION, STAGE 4 (6) Hx of multiple sclerosis Code(s): Z86.69 - PERSONAL HISTORY OF DIS OF THE NERVOUS SYS AND SENSE ORGANS (7) Metabolic encephalopathy Assessment/Plan: -improving Code(s): G93.41 - METABOLIC ENCEPHALOPATHY (8) Multiple drug resistant organism (MDRO) culture positive Code(s): Z16.24 - RESISTANCE TO MULTIPLE ANTIBIOTICS (9) Anemia Assessment/Plan: -H/H stable -GI consult -Stool OB positive -monitor trend -repeat labs today Code(s): D64.9 - ANEMIA, UNSPECIFIED Qualifiers: Other causes of anemia: other cause, not classified (10) Altered mental status Assessment/Plan: -2/2 to metabolic encephalopathy -much more awake now Code(s): R41.82 - ALTERED MENTAL STATUS, UNSPECIFIED (11) Multiple Pressure ulcers Assessment/Plan: -Continue with santyl -Wound care taem on case (12) Diarrhea Assessment/Plan: -d/c abx -Bacid BID -Cdiff pcr positive -On PO vanco -ID on board Code(s): R19.7 - DIARRHEA, UNSPECIFIED Condition: Stable Condition: Stable - Instructions Diet, Activity, Other Instructions: *COMPLETE VANCO ORAL SOLUTIONS FOR 10DAYS(STARTED 03/10/2018-03/20/2018) PER ID DR. MUÑIZ Disposition: VNS/HOME HEALTH CARE - Home Medications Comprehensive Discharge Medication List: Ambulatory Orders Levothyroxine [Synthroid -] 100 mcg PO DAILY@0700 #30 tablet 06/24/16 Carbamazepine 100 mg PO TID 01/03/18 Loratadine 10 mg PO DAILY 01/03/18 Sertraline HCl 50 mg PO DAILY 01/03/18 Albuterol 2.5/Ipratropium 0.5 [Duoneb -] 1 amp NEB RQID #120 amp 03/15/18 Ascorbic Acid [Vitamin C -] 500 mg PO DAILY #30 tablet 03/15/18 Bacitracin - [Bacitracin Topical Ointment -] 1 applic TP BID tube 03/15/18 Collagenase Clostridium Hist. [Santyl -] 1 applic TP DAILY #2 tube 03/15/18 Ferrous Sulfate [Feosol] 325 mg PO DAILY #30 tablet 03/15/18 Folic Acid - 1 mg PO DAILY #30 tablet 03/15/18 Lactobacillus Acidophilus [Bacid -] 1 tab PO BID #0 tab 03/15/18 Loperamide HCl Liquid [Imodium Liquid -] 1 mg PO TID PRN #10 cup 03/15/18 Mirtazapine [Remeron -] 7.5 mg PO HS #30 tablet 03/15/18 Nystatin/Triamcinolone Top Cr [Mycolog II -] 1 applic TP BID #60 grams 03/15/18 Pantoprazole Sodium [Protonix -] 40 mg PO BID tablet.ec 03/15/18 Vancomycin Oral Solution 250 mg PO Q6HPO #200 ml 03/15/18
[2018-03-16] MEDS: BACITRACIN 15 GM TUBE TOPICAL OINTMENT TP SCH (09:00)
[2018-03-16] MEDS: COLLAGENASE CLOSTRIDIUM HIST. 30 GRAMS TUBE TP SCH (09:30)
[2018-03-16] MEDS ORDERED: PT OWN MED DRAWER 7, Y5N ONE ×2 (11:06→14:20)
[2018-03-16] MEDS: PANTOPRAZOLE 40 MG TABLET (FP) PO SCH (11:10)
[2018-03-16] MEDS: LACTOBACILLUS ACIDOPHILUS 1 TABLET PO SCH (11:10)
[2018-03-16] MEDS: FOLIC ACID 1 MG TABLET (FP) PO SCH (11:11)
[2018-03-16] MEDS: SERTRALINE HCL 50 MG TABLET (FP) PO SCH (11:11)
[2018-03-16] MEDS: MULTIVIT-MINERALS ORAL LIQUID PO SCH (11:17)
[2018-03-16] MEDS: LORATADINE 10 MG TABLET PO SCH (11:17)
[2018-03-16] MEDS: ASCORBIC ACID 500 MG/5 ML UNIT DOSE CUP PO SCH (11:18)
[2018-03-16] MEDS: FERROUS SO4 300 MG/5 ML ORAL SOLN UNIT DOSE CUPS GT SCH (11:18)
--- NOTE | 2018-03-16 12:45 | PN ---
Progress Note, [place] - Note Progress Note: Tolerating diet. Given water via straw, seems to be overtly tolerating it. Assessed mastication with fair function. Pt reportedly eats reg foods at home with mashed meats per her mother (Initially she told me everything was mashed.) Moist soft, easy to chew cohesive foods, Thin liquids with aspiration precautions.
[2018-03-16] MEDS ORDERED: FERROUS SO4 325 MG TABLET (FP) PO SCH (13:15)
[2018-03-16] MEDS ORDERED: MULTIVITAMINS THER W-MINERALS COMBO TABLET (FP) PO SCH (13:15)
[2018-03-16] MEDS ORDERED: ASCORBIC ACID 500 MG TABLET (FP) PO SCH (13:15)
[2018-03-16] MEDS: NYSTATIN/TRIAMCINOLONE TOPICAL CREAM 15 GM TUBE TP SCH (14:10)
[2018-03-16 15:41] VITALS: BP 156/87; PULSE 67; TEMP 97.6
[2018-03-16] MEDS: ONDANSETRON 4 MG/2 ML VIAL IVPUSH ONE ×2 (16:22→16:24)
--- NOTE | 2018-03-16 18:00 | PN ---
Progress Note (short form) - Note Progress Note: Patient seen on floor regarding multiple decubtii Wound treated with Collagenase enzme responding to enzymatic debridement All wound cleaned using Sharp sterile curette and debrided using #15 blade WOund irrigated. measured and recorded No odour, edges flat, Periwound mild erythema Plan 1. Relief of pressure 2. WOund care to continue with Collagenase 3 Nutrition improvement to continue Follow Up PRN
== END 2018-03-16 16:59 | disposition home health service (06) | DRG 870 ==
LOC: JER 18:45 → JERBED 21:57 → JICU 02-27 09:42 → J5S 03-02 14:01
PROVIDERS: ADMIT Internal Medicine; ATTEND Family Medicine
PROC: 5A1955Z Respiratory Ventilation, Greater than 96 Consecutive Hours (ICD-10-PCS; principal; 2018-02-25)
PROC: 5A09357 Assistance with Respiratory Ventilation, Less than 24 Consecutive Hours, Continuous Positive Airway Pressure (ICD-10-PCS; 2018-03-01)
PROC: 30233N1 Transfusion of Nonautologous Red Blood Cells into Peripheral Vein, Percutaneous Approach (ICD-10-PCS; 2018-03-05)
PROC: 0HD6XZZ Extraction of Back Skin, External Approach (ICD-10-PCS; 2018-03-10)
DX: A41.9 Sepsis, unspecified organism (principal); L89.324 Pressure ulcer of left buttock, stage 4; L89.314 Pressure ulcer of right buttock, stage 4; L89.154 Pressure ulcer of sacral region, stage 4; J96.21 Acute and chronic respiratory failure with hypoxia; J96.22 Acute and chronic respiratory failure with hypercapnia; R53.2 Functional quadriplegia; J15.212 Pneumonia due to Methicillin resistant Staphylococcus aureus; G92 Toxic encephalopathy; J95.851 Ventilator associated pneumonia; N39.0 Urinary tract infection, site not specified; E46 Unspecified protein-calorie malnutrition; Z68.1 Body mass index [BMI] 19.9 or less, adult; A04.72 Enterocolitis due to Clostridium difficile, not specified as recurrent; E87.1 Hypo-osmolality and hyponatremia; E27.40 Unspecified adrenocortical insufficiency; D61.9 Aplastic anemia, unspecified; R64 Cachexia; G35 Multiple sclerosis; G50.0 Trigeminal neuralgia; D69.6 Thrombocytopenia, unspecified; R68.0 Hypothermia, not associated with low environmental temperature; Z93.0 Tracheostomy status; Z93.1 Gastrostomy status; I10 Essential (primary) hypertension; N31.9 Neuromuscular dysfunction of bladder, unspecified; L89.220 Pressure ulcer of left hip, unstageable; M62.838 Other muscle spasm; E78.5 Hyperlipidemia, unspecified; R56.9 Unspecified convulsions; Z66 Do not resuscitate; K59.00 Constipation, unspecified; H54.8 Legal blindness, as defined in USA; F32.9 Major depressive disorder, single episode, unspecified
CPT/HCPCS: 36415; 36430; 36600; 71045-TC-FY; 74176-TC; 80048; 80053; 80074; 81003; 81015; 82272; 82375; 82550; 82607; 82728; 82746; 82803; 82962; 83010; 83050; 83540; 83550; 83605; 83615; 83735; 84443; 84484; 85025; 85027; 85032; 85044; 85384; 85610; 85730; 86850; 86900; 86901; 86922; 87040; 87070; 87077; 87086; 87186; 87205; 87324; 87449; 87899; 93005; 93010; 94002; 94640; 99285-25; G0480; J0131; J1756; J7030; P9038; P9058

== ENCOUNTER 2018-05-03 15:26 | Inpatient (IN) | payer OTHER ==
--- NOTE | 2018-05-03 15:51 | PDOC ---
History of Present Illness - General Chief Complaint: Revisit, Lab Variance Stated Complaint: Revisit, Lab Variance - History of Present Illness Initial Comments: 05/03/18 15:48 53 yo F with h/o MS ( functional quadraplegia, trach collar, Baclofen pump, perera), HTN, HLD, hypothyroidism, legal blindness, trigeminal neuralgia who p/w evaluation for hyponatremia. Patient told that sodium was low from past CMP x 1 week ago. Advised to come to Ed by PMD Dr. Lopez. Patient with 1 week of fatigue. No other complaints. Recent admission (03/01/2018- 03/16/18) urosepsis , toxic encephalopathy, acute on chronic resp failure. On daily salt tab. On Carbamazepine for trigeminal neuralgia. Patient denies DAI, Convulsions, Palpitations, cough, wheezing, leg pain/swelling , N/V, F,C, CP, SOB, urinary complaints, abdominal pain, diarrhea, constipation , lightheadedness, sensory changes. PMHx: as noted above ROS: as noted Allergies: NKDA PMD: Anne Lopez Past History - Past Medical History Allergies/Adverse Reactions: Allergies Allergy/AdvReac Type Severity Reaction Status Date / Time chloral hydrate Allergy Intermediate Rash Verified 05/03/18 18:54 [Chloral Hydrate] azathioprine [From Imuran] Allergy Rash Verified 05/03/18 18:54 azathioprine sodium Allergy Rash Verified 05/03/18 18:54 [From Imuran] adhesive tape AdvReac Severe sensitivity Verified 05/03/18 18:54 to glue adhesive AdvReac Unknown Verified 05/03/18 18:54 Home Medications: Ambulatory Orders Levothyroxine [Synthroid -] 100 mcg PO DAILY@0700 #30 tablet 06/24/16 Carbamazepine 100 mg PO TID 01/03/18 Loratadine 10 mg PO DAILY 01/03/18 Sertraline HCl 50 mg PO DAILY 01/03/18 Albuterol 2.5/Ipratropium 0.5 [Duoneb -] 1 amp NEB RQID #120 amp 03/15/18 Ascorbic Acid [Vitamin C -] 500 mg PO DAILY #30 tablet 03/15/18 Bacitracin - [Bacitracin Topical Ointment -] 1 applic TP BID tube 03/15/18 Collagenase Clostridium Hist. [Santyl -] 1 applic TP DAILY #2 tube 03/15/18 Ferrous Sulfate [Feosol] 325 mg PO DAILY #30 tablet 03/15/18 Folic Acid - 1 mg PO DAILY #30 tablet 03/15/18 Lactobacillus Acidophilus [Bacid -] 1 tab PO BID #0 tab 03/15/18 Loperamide HCl Liquid [Imodium Liquid -] 1 mg PO TID PRN #10 cup 03/15/18 Mirtazapine [Remeron -] 7.5 mg PO HS #30 tablet 03/15/18 Nystatin/Triamcinolone Top Cr [Mycolog II -] 1 applic TP BID #60 grams 03/15/18 Pantoprazole Sodium [Protonix -] 40 mg PO BID tablet.ec 03/15/18 Vancomycin Oral Solution 250 mg PO Q6HPO #200 ml 03/15/18 Anemia: Yes Asthma: No Cancer: No Cardiac Disorders: No CVA: No COPD: No CHF: No DVT: No Dementia: (M.S,TRIG.NEUROLAGIA) Diabetes: No GI Disorders: Yes Disorders: Yes (baclofen implant) HTN: Yes Hypercholesterolemia: No Liver Disease: No Seizures: Yes Thyroid Disease: No - Surgical History Abdominal Surgery: No Appendectomy: No Cardiac Surgery: No Cholecystectomy: No GI Surgery: (BACLOFEN IMPLANT) Lung Surgery: Yes (TRACH) Neurologic Surgery: No Orthopedic Surgery: No - Immunization History Immunization Up to Date: Yes - Suicide/Smoking/Psychosocial Hx Smoking Status: No Smoking History: Never smoked Have you smoked in the past 12 months: No Number of Cigarettes Smoked Daily: 0 Cigars Per Day: 0 Hx Alcohol Use: No Drug/Substance Use Hx: No Substance Use Type: None Hx Substance Use Treatment: No Review of Systems - Review of Systems Comments:: 05/03/18 15:50 GENERAL/CONSTITUTIONAL: No fever or chills. No weakness. HEAD, EYES, EARS, NOSE AND THROAT: No change in vision. No ear pain or discharge. No sore throat. CARDIOVASCULAR: No chest pain or shortness of breath RESPIRATORY: No cough, wheezing, or hemoptysis. GASTROINTESTINAL: No nausea, vomiting, diarrhea or constipation. GENITOURINARY: No dysuria, frequency, or change in urination. MUSCULOSKELETAL: No joint or muscle swelling or pain. No neck or back pain. SKIN: No rash NEUROLOGIC: No headache, vertigo, loss of consciousness, or change in strength/ sensation. ENDOCRINE: No increased thirst. No abnormal weight change HEMATOLOGIC/LYMPHATIC: No anemia, easy bleeding, or history of blood clots. ALLERGIC/IMMUNOLOGIC: No hives or skin allergy. *Physical Exam - Physical Exam Comments: 05/03/18 15:50 GENERAL: Awake, alert, and fully oriented, in no acute distress HEAD: No signs of trauma, normocephalic, atraumatic EYES: PERRLA, EOMI, sclera anicteric, conjunctiva clear ENT: Trach collar in place. Auricles normal inspection, hearing grossly normal, nares patent, oropharynx clear without exudates. Moist mucosa NECK: Normal ROM, supple, no lymphadenopathy, JVD, or masses LUNGS: No distress, speaks full sentences, clear to auscultation bilaterally HEART: Regular rate and rhythm, normal S1 and S2, no murmurs, rubs or gallops, peripheral pulses normal and equal bilaterally. ABDOMEN: Soft, nontender, normoactive bowel sounds. No guarding, no rebound. No masses EXTREMITIES : Normal inspection, Normal range of motion, no edema. No clubbing or cyanosis. NEUROLOGICAL: Cranial nerves II through XII grossly intact. Normal speech. SKIN: Warm, Dry, normal turgor, no rashes or lesions noted ED Treatment Course - LABORATORY CBC & Chemistry Diagram: 05/03/18 17:40 05/03/18 17:40 Medical Decision Making - Medical Decision Making 05/03/18 16:24 53 yo F with h/o MS ( functional quadraplegia, trach collar, mechanically ventillated at night, Baclofen pump, perera), adrenal insufficiency, chronic hyponatremia (130-135), HTN, HLD, hypothyroidism, legal blindness, trigeminal neuralgia, who p/w hyponatremia. BP 171/93, Rectal temp 90.2, vitals otherwise wnl, AF, A&Ox3. Denies DAI, Convulsions, Palpitations, cough, wheezing, leg pain /swelling, N/V, F,C, CP, SOB, urinary complaints, abdominal pain, diarrhea, constipation, lightheadedness, sensory changes. On salt tab daily. Will assess for cardiac dysarrythmias, thyroid dysfunction, hypoglycemia, electrolyte abnml , metabolic and toxic derangements, acid-base disturbances, infection. 05/03/18 16:25 Ed Course: Alyssa marva placed 05/03/18 19:00 CBC: Unremarkable 05/03/18 19:08 Patient pending CMP and UA Stable and endorsed to night team 05/03/18 19:28 Na: 126 Plan to admit to medicine for hyponatremia, and hypothermia 05/03/18 19:[address] Castillo. Admitted obs. *DC/Admit/Observation/Transfer Diagnosis at time of Disposition: Hyponatremia Hypothermia Qualifiers: Encounter type: initial encounter Qualified Code(s): T68.XXXA - Hypothermia, initial encounter - Discharge Dispostion Decision to Admit order: Yes - Referrals Referrals: Anne Lopez MD [Primary Care Provider] - - Patient Instructions Additional Instructions: Please return to the emergency department with any new or worsening symptoms or concerns. Please follow up with your primary care physician within 72 hours. - Post Discharge Activity - Attestations Physician Attestion: 05/03/18 19:12 I attest to the information provided in this note.
[2018-05-03 16:06] VITALS: BMI 22.3
[2018-05-03 18:31] LABS: BASO % 0.1 % (0-2.0); EOS % 0.8 % (0-4.5); HEMATOCRIT 32.1 % (32.4-45.2); HEMOGLOBIN 11.1 GM/dL (10.7-15.3); LYMPH % 11.4 % (8-40); MCH 32.5 pg (25.7-33.7); MCHC 34.6 g/dl (32.0-36.0); MEAN CELL VOLUME 93.9 fl (80-96); MEAN PLT VOLUME 9.2 fl (7.5-11.1); MONO % 3.1 % (3.8-10.2); NEUT % 84.6 % (42.8-82.8); PLATELET COUNT 109 K/MM3 (134-434); RBC 3.42 M/mm3 (3.60-5.2); RDW 15.9 % (11.6-15.6); URINE APPEARANCE SLCLOUDY; URINE BILIRUBIN NEGATIVE (<2.0 mg/dL); URINE COLOR RED; URINE GLUCOSE (UA) NEGATIVE (NEGATIVE); URINE KETONE NEGATIVE (NEGATIVE); URINE LEUK ESTERASE 1+ (NEGATIVE); URINE NITRITE NEGATIVE (NEGATIVE); URINE PROTEIN 2+ (NEGATIVE); URINE UROBILINOGEN NEGATIVE mg/dL (0.2-1.0); WHITE BLOOD COUNT 5.8 K/mm3 (4.0-10.0)
[2018-05-03 19:21] LABS: ALBUMIN 2.9 g/dl (3.4-5.0); ALK PHOS 296 U/L (45-117); ANION GAP 9 MMOL/L (8-16); BILIRUBIN,TOTAL 0.2 mg/dL (0.2-1); BLOOD UREA NITROGEN 13 mg/dL (7-18); CHLORIDE 86 mmol/L (98-107); CO2 31 mmol/L (21-32); CREATININE 0.4 mg/dL (0.55-1.3); EPI CELLS RARE /HPF (FEW); GLUCOSE,RANDOM 70 mg/dL (74-106); POTASSIUM 4.6 mmol/L (3.5-5.1); SGOT/AST 63 U/L (15-37); SGPT/ALT 77 U/L (13-61); SODIUM 126 mmol/L (136-145); TOT PROT 7.9 g/dl (6.4-8.2); URINE BACTERIA RARE /hpf (NONE SEEN)
[2018-05-03] MEDS ORDERED: LOPERAMIDE HCL 1 MG/5 ML UNIT DOSE CUP PO PRN (20:24)
--- NOTE | 2018-05-03 20:25 | PDOC ---
Attending Attestation - HPI HPI: 05/03/18 20:29 The patient is a 53 year old female with a past medical history of multiple sclerosis (functional quadriplegic, trach collar, Baclofen pump, perera), recent admission for urosepsis, toxic encephalopathy (03/01/2018- 03/16/18), hypertension, hyperlipidemia, hypothyroidism, and trigeminal neuralgia who presents for evaluation of abnormal labs. Patient was prompted by PCP (Dr. Lopez) to visit the ED for further evaluation after results from CMP was obtained 1 week ago which revealed low sodium levels. She reports a 1 week history of fatigue. As per family at bedside, patient was recently treated for UTI. The patient denies chest pain, abdominal pain, palpitations, shortness of breath , cough, leg swelling, fevers, chills, nausea, vomiting, diarrhea, constipation , and any urinary symptoms. Allergies: chloral hydrate, azathioprine, azathioprine sodium, PCP: Dr. Anne Lopez - Physicial Exam PE: 05/03/18 20:30 Wnwd 53 y/o female in no acute distress head ncat neck +intact trach,supple oropharynx no exudates Heart RRR. No gallops, murmurs, or rubs. lungs clear to auscultation bilaterally no wheezing or crackles abd soft,nontender ext no edema or erythema, (+)Sacral decubitus ulcers skin warm and dry,no rashes neuro A&Ox3, able to speak softly, functional quadriplegic - Medical Decision Making 05/03/18 20:31 Documentation prepared by Kevin Canales, acting as medical specialist for Sharon Tran MD. <Kevin Canales - Last Filed: 05/03/18 20:29> - Resident Resident Name: Merlin Grande - ED Attending Attestation I have performed the following: I have examined & evaluated the patient, The case was reviewed & discussed with the resident, I agree w/resident's findings & plan, Exceptions are as noted - Medical Decision Making 05/03/18 21:39 53-year-old female who is a functional quadriplegic due to her advanced multiple sclerosis presents with hyponatremia, hypothermia Urinalysis is negative. Patient is under DAHLIA hugger at this time and is receiving IVF and she has been admitted to MedSurg for further treatment <Sharon Tran - Last Filed: 05/03/18 21:40>
--- NOTE | 2018-05-03 20:33 | HP ---
CHIEF COMPLAINT: weakness PCP: Dr. Anne Lopez HISTORY OF PRESENT ILLNESS: 53 year old female sent in to hospital for abnormal labs. Patient was prompted by PCP (Dr. Lopez) to visit the ED for further evaluation after results from CMP was obtained 1 week ago which revealed low sodium levels. She reports a 1 week history of fatigue. Found to be hypothermic. As per pt's mother, she had an increase in her carbamazepine dose recently which she takes for trigeminal neuralgia. ER course was notable for: (1) blood draws (2) (3) Recent Travel: no PAST MEDICAL HISTORY: multiple sclerosis (functional quadriplegic, trach collar, Baclofen pump, perera) , toxic encephalopathy, hypertension, hyperlipidemia, hypothyroidism, and trigeminal neuralgia PAST SURGICAL HISTORY: trach collar, Baclofen pump Social History: Smoking: no Alcohol: no Drugs: no Family History: Allergies chloral hydrate [Chloral Hydrate] Allergy (Intermediate, Verified 05/03/18 18:54 ) Rash azathioprine [From Imuran] Allergy (Verified 05/03/18 18:54) Rash azathioprine sodium [From Imuran] Allergy (Verified 05/03/18 18:54) Rash adhesive tape Adverse Reaction (Severe, Verified 05/03/18 18:54) sensitivity to glue adhesive Adverse Reaction (Unknown, Verified 05/03/18 18:54) HOME MEDICATIONS: Home Medications Medication Instructions Recorded Levothyroxine [Synthroid -] 100 mcg PO DAILY@0700 #30 tablet 06/24/16 Carbamazepine 100 mg PO TID 01/03/18 Loratadine 10 mg PO DAILY 01/03/18 Sertraline HCl 50 mg PO DAILY 01/03/18 Albuterol 2.5/Ipratropium 0.5 1 amp NEB RQID #120 amp 03/15/18 [Duoneb -] Ascorbic Acid [Vitamin C -] 500 mg PO DAILY #30 tablet 03/15/18 Bacitracin - [Bacitracin Topical 1 applic TP BID tube 03/15/18 Ointment -] Collagenase Clostridium Hist. 1 applic TP DAILY #2 tube 03/15/18 [Santyl -] Ferrous Sulfate [Feosol] 325 mg PO DAILY #30 tablet 03/15/18 Folic Acid - 1 mg PO DAILY #30 tablet 03/15/18 Lactobacillus Acidophilus [Bacid -] 1 tab PO BID #0 tab 03/15/18 Loperamide HCl Liquid [Imodium 1 mg PO TID PRN #10 cup 03/15/18 Liquid -] Mirtazapine [Remeron -] 7.5 mg PO HS #30 tablet 03/15/18 Nystatin/Triamcinolone Top Cr 1 applic TP BID #60 grams 03/15/18 [Mycolog II -] Pantoprazole Sodium [Protonix -] 40 mg PO BID tablet.ec 03/15/18 Vancomycin Oral Solution 250 mg PO Q6HPO #200 ml 03/15/18 REVIEW OF SYSTEMS CONSTITUTIONAL: Absent: fever, chills, diaphoresis, , malaise, loss of appetite, weight change present- generalized weakness HEENT: Absent: rhinorrhea, nasal congestion, throat pain, throat swelling, difficulty swallowing, mouth swelling, ear pain, eye pain, visual changes CARDIOVASCULAR: Absent: chest pain, syncope, palpitations, irregular heart rate, lightheadedness , peripheral edema RESPIRATORY: Absent: cough, shortness of breath, dyspnea with exertion, orthopnea, wheezing, stridor, hemoptysis GASTROINTESTINAL: Absent: abdominal pain, abdominal distension, nausea, vomiting, diarrhea, constipation, melena, hematochezia GENITOURINARY: Absent: dysuria, frequency, urgency, hesitancy, hematuria, flank pain, genital pain MUSCULOSKELETAL: Absent: myalgia, arthralgia, joint swelling, back pain, neck pain SKIN: Absent: rash, itching, pallor HEMATOLOGIC/IMMUNOLOGIC: Absent: easy bleeding, easy bruising, lymphadenopathy, frequent infections ENDOCRINE: Absent: unexplained weight gain, unexplained weight loss, heat intolerance, cold intolerance NEUROLOGIC: Absent: headache, focal weakness or paresthesias, dizziness, unsteady gait, seizure, mental status changes, bladder or bowel incontinence PSYCHIATRIC: Absent: anxiety, depression, suicidal or homicidal ideation, hallucinations. PHYSICAL EXAMINATION Vital Signs - 24 hr 05/03/18 05/03/18 05/03/18 15:27 17:00 17:06 Temperature 90.2 F L Pulse Rate 58 L Respiratory 16 Rate Blood Pressure 171/93 H O2 Sat by Pulse 98 98 Oximetry (%) GENERAL: Awake, alert, on trach collar HEAD: Normal with no signs of trauma. EYES: Pupils equal, round and reactive to light, extraocular movements intact, sclera anicteric, conjunctiva clear. No lid lag. EARS, NOSE, THROAT: Ears normal, nares patent, oropharynx clear without exudates. Moist mucous membranes. NECK: trach collar LUNGS: Breath sounds equal, clear to auscultation bilaterally. No wheezes, and no crackles. No accessory muscle use. HEART: Regular rate and rhythm, normal S1 and S2 without murmur, rub or gallop. ABDOMEN: Soft, nontender, not distended, normoactive bowel sounds, no guarding, no rebound, no masses. No hepatomegaly or splenomegaly. MUSCULOSKELETAL: No bony deformities or tenderness. UPPER EXTREMITIES: 2+ pulses, warm, well-perfused. No cyanosis. No clubbing. No peripheral edema. LOWER EXTREMITIES: 2+ pulses, warm, well-perfused. No calf tenderness. No peripheral edema. NEUROLOGICAL: quadraplegic from MS PSYCHIATRIC: unable to assess appropriately SKIN: stage 2 sacral decubitus ulcer Laboratory Results - last 24 hr 05/03/18 05/03/18 05/03/18 17:40 17:40 17:40 WBC 5.8 RBC 3.42 L Hgb 11.1 Hct 32.1 L MCV 93.9 MCH 32.5 MCHC 34.6 RDW 15.9 H Plt Count 109 L D MPV 9.2 Absolute Neuts (auto) 4.9 Neutrophils % 84.6 H D Lymphocytes % 11.4 D Monocytes % 3.1 L Eosinophils % 0.8 D Basophils % 0.1 Nucleated RBC % 0 Sodium 126 L Potassium 4.6 Chloride 86 L Carbon Dioxide 31 Anion Gap 9 BUN 13 Creatinine 0.4 L Creat Clearance w eGFR > 60 Random Glucose 70 L Lactic Acid Calcium 9.0 Total Bilirubin 0.2 AST 63 H ALT 77 H Alkaline Phosphatase 296 H Creatine Kinase 91 Troponin I < 0.02 Total Protein 7.9 Albumin 2.9 L TSH 2.71 Urine Color Red Urine Appearance Slcloudy Urine pH 7.0 Ur Specific [place] 1.005 L Urine Protein 2+ H Urine Glucose (UA) Negative Urine Ketones Negative Urine Blood Negative Urine Nitrite Negative Urine Bilirubin Negative Urine Urobilinogen Negative Ur Leukocyte Esterase 1+ H D Urine WBC (Auto) 6 Urine RBC (Auto) <1 Ur Epithelial Cells Rare Urine Bacteria Rare 05/03/18 17:40 WBC RBC Hgb Hct MCV MCH MCHC RDW Plt Count MPV Absolute Neuts (auto) Neutrophils % Lymphocytes % Monocytes % Eosinophils % Basophils % Nucleated RBC % Sodium Potassium Chloride Carbon Dioxide Anion Gap BUN Creatinine Creat Clearance w eGFR Random Glucose Lactic Acid 0.6 Calcium Total Bilirubin AST ALT Alkaline Phosphatase Creatine Kinase Troponin I Total Protein Albumin TSH Urine Color Urine Appearance Urine pH Ur Specific [place] Urine Protein Urine Glucose (UA) Urine Ketones Urine Blood Urine Nitrite Urine Bilirubin Urine Urobilinogen Ur Leukocyte Esterase Urine WBC (Auto) Urine RBC (Auto) Ur Epithelial Cells Urine Bacteria ASSESSMENT/PLAN: #Worsening Hyponatremia acute on chronic, patient appears to be euvolemic- 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, possibly medication adverse effect- carbamazepine . Less likely related to hypothyroidism as TSH was normal. -stop carbamazepine -send serum osm -send urine osm -send urine lytes -monitor i/o -daily weights -monitor bmp q6hrs -gentle IV fluid hydration with NS #Hypothermia - uncertain cause - do not suspect, no EKG changes such as bradycardia -bear hugger -monitor temp closely #Sacral ulcer -wound care -collagenase application #Hypothyroidism -controlled, tsh normal -c/w home dose of levothyroxine #DVT ppx -heparin sc Visit type - Emergency Visit Emergency Visit: Yes ED Registration Date: 05/03/18 Care time: The patient presented to the Emergency Department on the above date and was hospitalized for further evaluation of their emergent condition. - New Patient This patient is new to me today: Yes Date on this admission: 05/03/18 - Critical Care Critical Care patient: No
[2018-05-03] MEDS: SODIUM CHLORIDE 1,000 ML IV SCH (20:52)
[2018-05-03] MEDS: LACTOBACILLUS ACIDOPHILUS 1 TABLET PO SCH (23:26)
[2018-05-03] MEDS: PANTOPRAZOLE 40 MG TABLET (FP) PO SCH (23:27)
[2018-05-03] MEDS: MIRTAZAPINE 15 MG TABLET (FP) PO SCH (23:27)
[2018-05-03] MEDS: NYSTATIN/TRIAMCINOLONE TOPICAL CREAM 15 GM TUBE TP SCH (23:27)
[2018-05-03] MEDS: BACITRACIN 15 GM TUBE TOPICAL OINTMENT TP SCH (23:27)
[2018-05-04 06:15] LABS: ANION GAP 7 MMOL/L (8-16); BLOOD UREA NITROGEN 11 mg/dL (7-18); CALCIUM 8.1 mg/dL (8.5-10.1); CHLORIDE 86 mmol/L (98-107); CO2 30 mmol/L (21-32); CREATININE 0.3 mg/dL (0.55-1.3); GLUCOSE,RANDOM 51 mg/dL (74-106); POTASSIUM 4.8 mmol/L (3.5-5.1); SODIUM 124 mmol/L (136-145)
[2018-05-04 06:22] LABS: BASO % 0.6 % (0-2.0); EOS % 0.8 % (0-4.5); HEMATOCRIT 29.4 % (32.4-45.2); HEMOGLOBIN 10.1 GM/dL (10.7-15.3); LYMPH % 15.9 % (8-40); MCH 31.6 pg (25.7-33.7); MCHC 34.4 g/dl (32.0-36.0); MEAN CELL VOLUME 91.9 fl (80-96); MEAN PLT VOLUME 8.9 fl (7.5-11.1); MONO % 4.9 % (3.8-10.2); NEUT % 77.8 % (42.8-82.8); PLATELET COUNT 106 K/MM3 (134-434); RDW 15.7 % (11.6-15.6); WHITE BLOOD COUNT 3.9 K/mm3 (4.0-10.0)
[2018-05-04] MEDS ORDERED: ALBUTEROL SO4 2.5/IPRATROPIUM 0.5 INH SOL 3 ML VIAL.NEB. NEB ONE ×2 (08:36→12:09)
--- NOTE | 2018-05-04 08:36 | PN ---
Progress Note, Physician - Current Medication List Current Medications: Active Medications Albuterol/Ipratropium (Duoneb -) 1 amp NEB RQID [facility] Ascorbic Acid (Vitamin C -) 500 mg PO DAILY [facility] Bacitracin (Bacitracin -) 1 applic TP BID [facility] Last Admin: 05/03/18 23:27 Dose: Not Given Ferrous Sulfate (Feosol -) 325 mg PO DAILY [facility] Folic Acid (Folic Acid -) 1 mg PO DAILY [facility] Sodium Chloride (Normal Saline -) 1,000 mls @ 75 mls/hr IV ASDIR [facility] Last Admin: 05/03/18 20:52 Dose: 75 mls/hr Lactobacillus Acidophilus (Bacid -) 1 tab PO BID [facility] Last Admin: 05/03/18 23:26 Dose: 1 tab Levothyroxine Sodium (Synthroid -) 100 mcg PO DAILY@0700 [facility] Loperamide HCl (Imodium Liquid -) 1 mg PO Q8H PRN PRN Reason: DIARRHEA Loratadine (Claritin -) 10 mg PO DAILY [facility] Mirtazapine (Remeron -) 7.5 mg PO HS [facility] Last Admin: 05/03/18 23:27 Dose: 7.5 mg Nystatin/Triamcinolone Acetonide (Mycolog Ii Cream -) 1 applic TP BID [facility] Last Admin: 05/03/18 23:27 Dose: Not Given Pantoprazole Sodium (Protonix -) 40 mg PO BID [facility] Last Admin: 05/03/18 23:27 Dose: 40 mg Sertraline HCl (Zoloft -) 50 mg PO DAILY [facility] - Objective Vital Signs: Vital Signs Temperature 94.9 F L 05/04/18 07:21 Pulse Rate 78 05/04/18 07:21 Respiratory Rate 15 05/04/18 07:21 Blood Pressure 161/86 05/04/18 07:21 O2 Sat by Pulse Oximetry (%) 97 05/04/18 07:21 Cardiovascular: Yes: Regular Rate and Rhythm Respiratory: Yes: Regular, CTA Bilaterally Gastrointestinal: Yes: Normal Bowel Sounds, Soft Labs: CBC, BMP 05/04/18 05:30 05/04/18 05:30 Problem List - Problems (1) Hyponatremia Assessment/Plan: #Worsening Hyponatremia acute on chronic, patient appears to be euvolemic- 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, possibly medication adverse effect- carbamazepine -stop carbamazepine if oh with neuro -send serum osm -send urine osm -send urine lytes -monitor i/o -daily weights -monitor bmp q6hrs -gentle IV fluid hydration with NS -renal consult Code(s): E87.1 - HYPO-OSMOLALITY AND HYPONATREMIA (2) Anemia Assessment/Plan: stable chronic Code(s): D64.9 - ANEMIA, UNSPECIFIED Qualifiers: Other causes of anemia: other cause, not classified (3) Chronic respiratory failure Assessment/Plan: 0n trach collar Code(s): J96.10 - CHRONIC RESPIRATORY FAILURE, UNSP W HYPOXIA OR HYPERCAPNIA (4) Functional quadriplegia Code(s): R53.2 - FUNCTIONAL QUADRIPLEGIA (5) Hypothyroid Assessment/Plan: -Same meds Code(s): E03.9 - HYPOTHYROIDISM, UNSPECIFIED (6) Multiple sclerosis Assessment/Plan: -Neuro Code(s): G35 - MULTIPLE SCLEROSIS (7) Decubital ulcer Assessment/Plan: -Sacral ulcer -wound care -collagenase application Code(s): L89.90 - PRESSURE ULCER OF UNSPECIFIED SITE, UNSPECIFIED STAGE Qualifiers: Pressure injury location: unspecified location Pressure injury stage: unspecified pressure injury stage Qualified Code(s): L89.90 - Pressure ulcer of unspecified site, unspecified stage (8) Abnormal LFTs Assessment/Plan: -follow labs -us noted Code(s): R94.5 - ABNORMAL RESULTS OF LIVER FUNCTION STUDIES
[2018-05-04 09:38] LABS: ALBUMIN 2.6 g/dl (3.4-5.0); ALK PHOS 245 U/L (45-117); BILIRUBIN,TOTAL 0.2 mg/dL (0.2-1); SGOT/AST 48 U/L (15-37); SGPT/ALT 62 U/L (13-61)
[2018-05-04] MEDS ORDERED: METOPROLOL TARTRATE 50 MG TABLET (FP) ONE (10:17)
[2018-05-04] MEDS ORDERED: POTASSIUM CHLORIDE TABS 20 MEQ TABLET.ER (FP) PO ONE (10:18)
--- NOTE | 2018-05-04 10:43 | EKG ---
Test Reason : Blood Pressure : / mmHG Vent. Rate : 059 BPM Atrial Rate : 059 BPM P-R Int : 200 ms QRS Dur : 116 ms QT Int : 444 ms P-R-T Axes : 060 027 039 degrees QTc Int : 439 ms SINUS BRADYCARDIA LEFT VENTRICULAR HYPERTROPHY WITH QRS WIDENING ABNORMAL ECG WHEN COMPARED WITH ECG OF 10-MAR-2018 12:56, NO SIGNIFICANT CHANGE WAS FOUND Confirmed by TOMAS PATIÑO, BRANDY ([id number]) on 05/04/2018 10:43:03 AM Referred By: Confirmed By:BRANDY MARIN MD
[2018-05-04] MEDS: FOLIC ACID 1 MG TABLET (FP) PO SCH (10:47)
[2018-05-04] MEDS: LORATADINE 10 MG TABLET PO SCH (10:47)
[2018-05-04] MEDS: FERROUS SO4 325 MG TABLET (FP) PO SCH (10:47)
[2018-05-04] MEDS: ALBUTEROL SO4 2.5/IPRATROPIUM 0.5 INH SOL 3 ML VIAL.NEB. NEB SCH ×3 (10:47→21:56)
[2018-05-04] MEDS: LACTOBACILLUS ACIDOPHILUS 1 TABLET PO SCH ×2 (10:47→22:33)
[2018-05-04] MEDS: LEVOTHYROXINE NA 100 MCG TABLET (FP) PO SCH (10:47)
[2018-05-04] MEDS: BACITRACIN 15 GM TUBE TOPICAL OINTMENT TP SCH ×2 (10:47→22:33)
[2018-05-04] MEDS: POTASSIUM CHLORIDE TABS 20 MEQ TABLET.ER (FP) PO SCH (10:48)
[2018-05-04] MEDS: CYANOCOBALAMIN 1,000 MCG TABLET (FP) PO SCH (10:49)
[2018-05-04] MEDS: SERTRALINE HCL 50 MG TABLET (FP) PO SCH (10:49)
[2018-05-04] MEDS: PANTOPRAZOLE 40 MG TABLET (FP) PO SCH ×2 (10:49→22:34)
[2018-05-04] MEDS: MULTIVITAMINS (DAILY MVI) TABLET (FP) PO SCH (10:49)
[2018-05-04] MEDS: ZINC SULFATE 220 MG CAPSULE (FP) PO SCH (10:49)
[2018-05-04] MEDS: ASCORBIC ACID 500 MG TABLET (FP) PO SCH (10:49)
--- NOTE | 2018-05-04 11:44 | CONSULT ---
Consult - text type - Consultation Consultation Note: Renal consult for Hyponatremia This is a 53 year old woman with hx of Multple Sclerosis, Hypertension, Hyperlipidemia, Hypothyrodism, trigeminal neualgia, hx of hyponatremia/SIADH who presented with low serum Na as an outpatient and admitted with acute worsening of serum Na. Pt was on salt tabs at home. Denies any changes in oral water intake. No N/V/D. Appetite has been poor as per patient. No fever, chills , Abd pain, SOB, CP. No confusion, lethargy. No seizures, coma noted. PMhx: as above Allergies: NKDA Family Hx: NC Social Hx: No T/A/D ROS: as per HPI, all other pertinent ros negative Home Medications Medication Instructions Recorded Levothyroxine [Synthroid -] 100 mcg PO DAILY@0700 #30 tablet 06/24/16 Carbamazepine 100 mg PO TID 01/03/18 Loratadine 10 mg PO DAILY 01/03/18 Sertraline HCl 50 mg PO DAILY 01/03/18 Albuterol 2.5/Ipratropium 0.5 1 amp NEB RQID #120 amp 03/15/18 [Duoneb -] Ascorbic Acid [Vitamin C -] 500 mg PO DAILY #30 tablet 03/15/18 Collagenase Clostridium Hist. 1 applic TP DAILY #2 tube 03/15/18 [Santyl -] Ferrous Sulfate [Feosol] 325 mg PO DAILY #30 tablet 03/15/18 Folic Acid - 1 mg PO DAILY #30 tablet 03/15/18 Lactobacillus Acidophilus [Bacid -] 1 tab PO BID #0 tab 03/15/18 Mirtazapine [Remeron -] 7.5 mg PO HS #30 tablet 03/15/18 Pantoprazole Sodium [Protonix -] 40 mg PO BID tablet.ec 03/15/18 Cyanocobalamin [Vitamin B12 -] 1,000 mcg PO DAILY 05/03/18 Hydralazine HCl 50 mg PO TID 05/03/18 Melatonin 2 mg PO HS 05/03/18 Metoprolol Succinate [Toprol Xl] 50 mg PO BID 05/03/18 Multivitamin [Multiple Vitamins] 1 each PO DAILY 05/03/18 Potassium Chloride [K-Dur -] 20 meq PO DAILY 05/03/18 Zinc 50 mg PO DAILY 05/03/18 Vital Signs Temperature 94.9 F L 05/04/18 07:21 Pulse Rate 78 05/04/18 07:21 Respiratory Rate 15 05/04/18 07:21 Blood Pressure 161/86 05/04/18 07:21 O2 Sat by Pulse Oximetry (%) 97 05/04/18 07:21 Intake & Output 05/01/18 05/02/18 05/03/18 05/04/18 23:59 23:59 23:59 23:59 Weight 72.575 kg Vital Signs Temperature 94.9 F L 05/04/18 07:21 Pulse Rate 78 05/04/18 07:21 Respiratory Rate 15 05/04/18 07:21 Blood Pressure 161/86 05/04/18 07:21 O2 Sat by Pulse Oximetry (%) 97 05/04/18 07:21 Intake & Output 05/01/18 05/02/18 05/03/18 05/04/18 23:59 23:59 23:59 23:59 Weight 72.575 kg NAD awake and alert trach with trach collar in place neck supple RRR Dec BS, no rales soft NT/ND No edema in LE CBC, BMP 05/04/18 05:30 05/04/18 05:30 Current Medications Albuterol/Ipratropium (Duoneb -) 1 amp NEB RQID [facility] Last Admin: 05/04/18 10:47 Dose: 1 amp Ascorbic Acid (Vitamin C -) 500 mg PO DAILY [facility] Last Admin: 05/04/18 10:49 Dose: 500 mg Bacitracin (Bacitracin -) 1 applic TP BID [facility] Last Admin: 05/04/18 10:47 Dose: 1 applic Carbamazepine (Tegretol -) 100 mg PO TID [facility] Collagenase (Santyl -) 1 applic TP DAILY [facility]; Protocol Cyanocobalamin (Vitamin B12 -) 1,000 mcg PO DAILY [facility] Last Admin: 05/04/18 10:49 Dose: 1,000 mcg Ferrous Sulfate (Feosol -) 325 mg PO DAILY [facility] Last Admin: 05/04/18 10:47 Dose: 325 mg Folic Acid (Folic Acid -) 1 mg PO DAILY [facility] Last Admin: 05/04/18 10:47 Dose: 1 mg Hydralazine HCl (Apresoline -) 50 mg PO TID [facility] Sodium Chloride (Normal Saline -) 1,000 mls @ 75 mls/hr IV ASDIR [facility] Last Admin: 05/03/18 20:52 Dose: 75 mls/hr Lactobacillus Acidophilus (Bacid -) 1 tab PO BID [facility] Last Admin: 05/04/18 10:47 Dose: 1 tab Levothyroxine Sodium (Synthroid -) 100 mcg PO DAILY@0700 [facility] Last Admin: 05/04/18 10:47 Dose: 100 mcg Loperamide HCl (Imodium Liquid -) 1 mg PO Q8H PRN PRN Reason: DIARRHEA Loratadine (Claritin -) 10 mg PO DAILY [facility] Last Admin: 05/04/18 10:47 Dose: 10 mg Melatonin (Melatonin) 2 mg PO HS [facility] Metoprolol Succinate (Toprol Xl -) 50 mg PO BID [facility] Last Admin: 05/04/18 10:49 Dose: 50 mg Mirtazapine (Remeron -) 7.5 mg PO HS [facility] Last Admin: 05/03/18 23:27 Dose: 7.5 mg Multivitamins/Minerals/Vitamin C (Tab-A-Vit -) 1 tab PO DAILY [facility] Last Admin: 05/04/18 10:49 Dose: 1 tab Nystatin/Triamcinolone Acetonide (Mycolog Ii Cream -) 1 applic TP BID [facility] Last Admin: 05/03/18 23:27 Dose: Not Given Pantoprazole Sodium (Protonix -) 40 mg PO BID [facility] Last Admin: 05/04/18 10:49 Dose: 40 mg Potassium Chloride (K-Dur -) 20 meq PO DAILY [facility] Last Admin: 05/04/18 10:48 Dose: 20 meq Sertraline HCl (Zoloft -) 50 mg PO DAILY [facility] Last Admin: 05/04/18 10:49 Dose: 50 mg Zinc Sulfate (Orazinc -) 220 mg PO DAILY [facility] Last Admin: 05/04/18 10:49 Dose: 220 mg 53 year old woman with hx of Multple Sclerosis, Hypertension, Hyperlipidemia, Hypothyrodism, trigeminal neualgia, hx of hyponatremia/SIADH who presented with low serum Na as an outpatient and admitted with acute worsening of serum Na. #Acute on Chronic hyponatremia likely due to SIADH #Multiple Sclerosis #Anemia #Hypertension #Small pleural effusion #Hypothyroidism Would discontinue IVF as serum Na dropped from 126 to 124 with fluids overnight. Urine studies show elevated OSM consistent with ADH release. No clinical signs of volume depletion and pt has been off Lasix as an outpatient. Start Fluid restriction of 1000cc daily. Restart salt tabs 1g BID. Trend serum Na BID. Can consider addition of loop diuretics in 24 hours if serum Na not improving as expected. Goal rate of correction should be around 8 in 24 hours. Tolvaptan is a consideration however it cannot be used for more then 30 days given risk of hepatoxicity and there is not a good jail solution. CXR reviewed, has some effusion but not evidence of PNA. Prior CT imaging reviewed, no evidence of malignancy. Continue supportive care. Thank you Tyshawn Doe DO
[2018-05-04] MEDS: NYSTATIN/TRIAMCINOLONE TOPICAL CREAM 15 GM TUBE TP SCH ×2 (13:53→22:34)
[2018-05-04] MEDS: COLLAGENASE CLOSTRIDIUM HIST. 30 GRAMS TUBE TP SCH (13:53)
[2018-05-04] MEDS ORDERED: carBAMazepine 200 MG TABLET ONE (13:55)
[2018-05-04] MEDS ORDERED: hydrALAZINE HCL 25 MG TABLET (FP) ONE (13:55)
[2018-05-04] MEDS: hydrALAZINE HCL 50 MG TABLET (FP) PO SCH ×2 (14:30→22:33)
[2018-05-04] MEDS: carBAMazepine 100 MG TAB.CHEW PO SCH ×2 (14:30→22:35)
--- NOTE | 2018-05-04 14:33 | CONSULT ---
Consult - text type - Consultation Consultation Note: NEUROLOGY CONSULT GREATLY APPRECIATED: Events reviewed and discussed with staff. Pt examined with her mother and Cynthia at bedside. This 53 yo F is well-known to me with advanced Multiple Sclerosis. On Tegretol for Trigeminal neuralgia and Baclofen spinal pump for chronic leg pains. Lives with mother and [employer] REC[employer] 28/09. Ambulates with motorized wheelchair. Tetraplegic. Bedbound. Indwelling perera catheter and capped trache for nocturnal use. Noted with one week of lethargy and yesterday hypothermia with temp of 90 and "elevated blood pressure" by PCP. Patient did not receive ventilatory support in the ER last night and was unable to sllep Has required multiple hospital admissions for recurrent UTI, hyponatremia and infection of decubitus ulcer. Most recent admission complicated by pos C. Diff currently on PO Vancomycin. PMHX: HTN, decubitus ulcer Medications: synthroid, hydralazine, carbamazepine, loratadine, metoprolol, KCL , sertraline, folic acid, FeSO4, mirtazapine, pantoprazole, Duoneb Allergies: azathioprine Na 126 -> 124, AST 63-> 48, ALT 77-> 62, Alk Phos 296-> 245 Alb 2.9-> 2.6 TSH 2.71 Chest xray: L lobe effusion UA neg. GODFREY: Cor reg. Neg bruits. -Lhermitte's. Perera draining cloudy urine. SOB. RR= 30. Using accessory muscles. NEURO: Mentation/Speech: Ox [facility]. April 2018. TRUMP. CNII-CNXII: Decreased vision. Counts fingers. Full EOM's without nystagmus. Reduced rapid tongue mvm'ts. Flaccid tratraplegia. Arreflexic. Decreased vibration up to shins B/L. Impression: Advanced MS Toxic-Metabolic Encephalopathy (Possibly nutritional, ? Occult infection i.e Osteomyelitis, Urosepsis, PNA, Influenza) Suggest: Start thiamine 250 mg IVP TID x 3 days, 1 dose stat Order B12, Fe++, Iron, TIBC, Ferritin; ESR/CRP (to r/o osteo) ID Consult. Await urine culture but would have very low threshhold to empiracally cover with broad spectrum antibiotics for UTI and decubitae. Vascular surgery/ wound care consult. Continue wound cares, Perera care (Change Perera please) Slow correction of hyponatremia while hydrating patient Ventilator for respiratory fatigue every night Continue Carbamazepine, antidepressants and current home meds. Thank you very much, Rom Conroy MD
[2018-05-04] MEDS ORDERED: THIAMINE HCL 200 MG/2 ML VIAL ONE (15:18)
[2018-05-04] MEDS: THIAMINE HCL 200 MG/2 ML VIAL IVPB SCH ×2 (15:22→22:35)
[2018-05-04] MEDS: SODIUM CHLORIDE 1,000 ML IV SCH (19:58)
[2018-05-04] MEDS ORDERED: PT OWN MED DRAWER 7, Y5N ONE (20:44)
[2018-05-04] MEDS: MIRTAZAPINE 15 MG TABLET (FP) PO SCH (22:34)
[2018-05-04] MEDS: MELATONIN 1 MG TABLET PO SCH (22:41)
[2018-05-05] MEDS: carBAMazepine 100 MG TAB.CHEW PO SCH ×3 (06:40→22:31)
[2018-05-05] MEDS: hydrALAZINE HCL 50 MG TABLET (FP) PO SCH ×3 (06:40→22:31)
[2018-05-05] MEDS: LEVOTHYROXINE NA 100 MCG TABLET (FP) PO SCH (06:40)
[2018-05-05] MEDS: THIAMINE HCL 200 MG/2 ML VIAL IVPB SCH ×3 (06:41→23:08)
[2018-05-05] MEDS: ALBUTEROL SO4 2.5/IPRATROPIUM 0.5 INH SOL 3 ML VIAL.NEB. NEB SCH ×4 (08:45→20:30)
[2018-05-05] MEDS: SODIUM CHLORIDE 1,000 ML IV SCH (10:00)
[2018-05-05 11:40] LABS: ALBUMIN 2.6 g/dl (3.4-5.0); ALK PHOS 256 U/L (45-117); ANION GAP 9 MMOL/L (8-16); BILIRUBIN,TOTAL 0.4 mg/dL (0.2-1); BLOOD UREA NITROGEN 11 mg/dL (7-18); CALCIUM 8.7 mg/dL (8.5-10.1); CHLORIDE 80 mmol/L (98-107); CO2 27 mmol/L (21-32); CREATININE 0.4 mg/dL (0.55-1.3); GLUCOSE,RANDOM 68 mg/dL (74-106); POTASSIUM 5.2 mmol/L (3.5-5.1); SGOT/AST 35 U/L (15-37); SGPT/ALT 50 U/L (13-61); TOT PROT 7.4 g/dl (6.4-8.2)
[2018-05-05 12:12] LABS: SODIUM 116 mmol/L (136-145)
[2018-05-05] MEDS: BACITRACIN 15 GM TUBE TOPICAL OINTMENT TP SCH ×2 (12:16→23:09)
[2018-05-05] MEDS: NYSTATIN/TRIAMCINOLONE TOPICAL CREAM 15 GM TUBE TP SCH ×2 (12:16→23:10)
[2018-05-05] MEDS: COLLAGENASE CLOSTRIDIUM HIST. 30 GRAMS TUBE TP SCH (12:17)
[2018-05-05] MEDS ORDERED: FUROSEMIDE 40 MG/4 ML INJECTABLE VIAL IVPUSH ONE (12:24)
--- NOTE | 2018-05-05 12:44 | PN ---
Progress Note, Physician Chief Complaint: patient seen and examined very lethargic and sleepy na is 116 dara stop ivf will keep NPO till mental status improved and junior faulkner to see - Current Medication List Current Medications: Active Medications Albuterol/Ipratropium (Duoneb -) 1 amp NEB RQID [facility] Last Admin: 05/05/18 08:45 Dose: 1 amp Ascorbic Acid (Vitamin C -) 500 mg PO DAILY [facility] Last Admin: 05/04/18 10:49 Dose: 500 mg Bacitracin (Bacitracin -) 1 applic TP BID [facility] Last Admin: 05/04/18 22:33 Dose: Not Given Carbamazepine (Tegretol -) 100 mg PO TID [facility] Last Admin: 05/05/18 06:40 Dose: 100 mg Collagenase (Santyl -) 1 applic TP DAILY [facility]; Protocol Last Admin: 05/04/18 13:53 Dose: 1 applic Cyanocobalamin (Vitamin B12 -) 1,000 mcg PO DAILY [facility] Last Admin: 05/04/18 10:49 Dose: 1,000 mcg Ferrous Sulfate (Feosol -) 325 mg PO DAILY [facility] Last Admin: 05/04/18 10:47 Dose: 325 mg Folic Acid (Folic Acid -) 1 mg PO DAILY [facility] Last Admin: 05/04/18 10:47 Dose: 1 mg Hydralazine HCl (Apresoline -) 50 mg PO TID [facility] Last Admin: 05/05/18 06:40 Dose: 50 mg Lactobacillus Acidophilus (Bacid -) 1 tab PO BID [facility] Last Admin: 05/04/18 22:33 Dose: 1 tab Levothyroxine Sodium (Synthroid -) 100 mcg PO DAILY@0700 [facility] Last Admin: 05/05/18 06:40 Dose: 100 mcg Levothyroxine Sodium (Synthroid Injection -) 75 mcg IVPUSH ONCE ONE Stop: 05/05/18 13:01 Levothyroxine Sodium (Synthroid Injection -) 75 mcg IVPUSH DAILY [facility] Loperamide HCl (Imodium Liquid -) 1 mg PO Q8H PRN PRN Reason: DIARRHEA Loratadine (Claritin -) 10 mg PO DAILY [facility] Last Admin: 05/04/18 10:47 Dose: 10 mg Melatonin (Melatonin) 2 mg PO HS [facility] Last Admin: 05/04/18 22:41 Dose: 2 mg Metoprolol Succinate (Toprol Xl -) 50 mg PO BID [facility] Last Admin: 05/04/18 22:35 Dose: 50 mg Mirtazapine (Remeron -) 7.5 mg PO HS [facility] Last Admin: 05/04/18 22:34 Dose: 7.5 mg Multivitamins/Minerals/Vitamin C (Tab-A-Vit -) 1 tab PO DAILY [facility] Last Admin: 05/04/18 10:49 Dose: 1 tab Nystatin/Triamcinolone Acetonide (Mycolog Ii Cream -) 1 applic TP BID [facility] Last Admin: 05/04/18 22:34 Dose: Not Given Pantoprazole Sodium (Protonix Iv) 40 mg IVPUSH BID [facility] Sertraline HCl (Zoloft -) 50 mg PO DAILY [facility] Last Admin: 05/04/18 10:49 Dose: 50 mg Sodium Chloride (Sodium Chloride Tablet -) 1 gm PO BID [facility] Thiamine HCl (Vitamin B1 Injection -) 250 mg IVPB TID [facility] Stop: 05/07/18 14:44 Last Admin: 05/05/18 06:41 Dose: 250 mg Zinc Sulfate (Orazinc -) 220 mg PO DAILY [facility] Last Admin: 05/04/18 10:49 Dose: 220 mg - Objective Vital Signs: Vital Signs Temperature 98.6 F 05/05/18 06:00 Pulse Rate 103 H 05/05/18 09:30 Respiratory Rate 19 05/05/18 10:00 Blood Pressure 146/67 05/05/18 06:00 O2 Sat by Pulse Oximetry (%) 98 05/05/18 09:30 Constitutional: Yes: Calm Cardiovascular: Yes: Regular Rate and Rhythm, S1, S2 Respiratory: Yes: Mechanically Ventilated Gastrointestinal: Yes: Normal Bowel Sounds, Soft Neurological: Yes: Pre-Existing Deficit Labs: CBC, BMP 05/04/18 05:30 05/05/18 07:35 Problem List - Problems (1) Hyponatremia Assessment/Plan: renal on board stop ivf repeat cmp in evening lasix iv junior faulkner see patient NPO for now cannot take salt tablet till mental status improves Code(s): E87.1 - HYPO-OSMOLALITY AND HYPONATREMIA (2) Anemia Assessment/Plan: iron panel Code(s): D64.9 - ANEMIA, UNSPECIFIED (3) Hypothyroid Assessment/Plan: check tsh change to iv as cannot take oral synthroid till mental status improved synthoid 75mcg iv once mental status improves will switch back to synthroid 100mcg po daily Code(s): E03.9 - HYPOTHYROIDISM, UNSPECIFIED (4) Hyperkalemia Assessment/Plan: stop potassium supplements Code(s): E87.5 - HYPERKALEMIA (5) Hx of multiple sclerosis Assessment/Plan: vent support appreiciate neurology note thiamine iv dvt ppx Code(s): Z86.69 - PERSONAL HISTORY OF DIS OF THE NERVOUS SYS AND SENSE ORGANS
[2018-05-05] MEDS ORDERED: LEVOTHYROXINE SODIUM 100 MCG VIAL IVPUSH ONE (13:00)
--- NOTE | 2018-05-05 13:12 | PN ---
Progress Note (short form) - Note Progress Note: Renal follow up for Hyponatremia Pt seen and examined at the bedside sleeping, gorggy but opens eyes and answers questions appropriately was on IVF overnight Vital Signs Temperature 98.6 F 05/05/18 06:00 Pulse Rate 103 H 05/05/18 09:30 Respiratory Rate 05/05/18 10:00 Blood Pressure 146/67 05/05/18 06:00 O2 Sat by Pulse Oximetry (%) 98 05/05/18 09:30 Intake & Output 05/02/18 05/03/18 05/04/18 05/05/18 23:59 23:59 23:59 23:59 Output Total 1100 Balance -1100 Weight 72.575 kg NAD on vent via trach neck supple RRR Dec BS, no rales soft NT/ND No edema in LE CBC, BMP 05/04/18 05:30 05/05/18 07:35 Current Medications Albuterol/Ipratropium (Duoneb -) 1 amp NEB RQID [facility] Last Admin: 05/05/18 08:45 Dose: 1 amp Ascorbic Acid (Vitamin C -) 500 mg PO DAILY [facility] Last Admin: 05/04/18 10:49 Dose: 500 mg Bacitracin (Bacitracin -) 1 applic TP BID [facility] Last Admin: 05/04/18 22:33 Dose: Not Given Carbamazepine (Tegretol -) 100 mg PO TID [facility] Last Admin: 05/05/18 06:40 Dose: 100 mg Collagenase (Santyl -) 1 applic TP DAILY [facility]; Protocol Last Admin: 05/04/18 13:53 Dose: 1 applic Cyanocobalamin (Vitamin B12 -) 1,000 mcg PO DAILY [facility] Last Admin: 05/04/18 10:49 Dose: 1,000 mcg Ferrous Sulfate (Feosol -) 325 mg PO DAILY [facility] Last Admin: 05/04/18 10:47 Dose: 325 mg Folic Acid (Folic Acid -) 1 mg PO DAILY [facility] Last Admin: 05/04/18 10:47 Dose: 1 mg Hydralazine HCl (Apresoline -) 50 mg PO TID [facility] Last Admin: 05/05/18 06:40 Dose: 50 mg Lactobacillus Acidophilus (Bacid -) 1 tab PO BID [facility] Last Admin: 05/04/18 22:33 Dose: 1 tab Levothyroxine Sodium (Synthroid Injection -) 75 mcg IVPUSH DAILY [facility] Loperamide HCl (Imodium Liquid -) 1 mg PO Q8H PRN PRN Reason: DIARRHEA Loratadine (Claritin -) 10 mg PO DAILY [facility] Last Admin: 05/04/18 10:47 Dose: 10 mg Melatonin (Melatonin) 2 mg PO HS [facility] Last Admin: 05/04/18 22:41 Dose: 2 mg Metoprolol Succinate (Toprol Xl -) 50 mg PO BID [facility] Last Admin: 05/04/18 22:35 Dose: 50 mg Mirtazapine (Remeron -) 7.5 mg PO HS [facility] Last Admin: 05/04/18 22:34 Dose: 7.5 mg Multivitamins/Minerals/Vitamin C (Tab-A-Vit -) 1 tab PO DAILY [facility] Last Admin: 05/04/18 10:49 Dose: 1 tab Nystatin/Triamcinolone Acetonide (Mycolog Ii Cream -) 1 applic TP BID [facility] Last Admin: 05/04/18 22:34 Dose: Not Given Pantoprazole Sodium (Protonix Iv) 40 mg IVPUSH BID [facility] Sertraline HCl (Zoloft -) 50 mg PO DAILY [facility] Last Admin: 05/04/18 10:49 Dose: 50 mg Sodium Chloride (Sodium Chloride Tablet -) 1 gm PO BID [facility] Thiamine HCl (Vitamin B1 Injection -) 250 mg IVPB TID [facility] Stop: 05/07/18 14:44 Last Admin: 05/05/18 06:41 Dose: 250 mg Zinc Sulfate (Orazinc -) 220 mg PO DAILY [facility] Last Admin: 05/04/18 10:49 Dose: 220 mg 53 year old woman with hx of Multple Sclerosis, Hypertension, Hyperlipidemia, Hypothyrodism, trigeminal neualgia, hx of hyponatremia/SIADH who presented with low serum Na as an outpatient and admitted with acute worsening of serum Na. #Acute on Chronic hyponatremia likely due to SIADH #Multiple Sclerosis #Anemia #Hypertension #Small pleural effusion #Hypothyroidism Serum Na worsened overnight with IVF. Will discontinue IVF at this time. Continue salt tabs 1g BID. Ideally would like to give IV lasix but given marginal BP will hold off. Monitor serum na Q6h. If serum Na does not improve or if there is any worsening in mental status would need ICU transfer for hypertonic saline. Continue vent support as needed hold antihypertensive meds for now. Thank you Tyshawn Doe DO
[2018-05-05] MEDS: FERROUS SO4 325 MG TABLET (FP) PO SCH (13:13)
[2018-05-05] MEDS: LORATADINE 10 MG TABLET PO SCH (13:13)
[2018-05-05] MEDS: LACTOBACILLUS ACIDOPHILUS 1 TABLET PO SCH ×2 (13:13→22:31)
[2018-05-05] MEDS: FOLIC ACID 1 MG TABLET (FP) PO SCH (13:14)
[2018-05-05] MEDS: ASCORBIC ACID 500 MG TABLET (FP) PO SCH (13:16)
[2018-05-05] MEDS: CYANOCOBALAMIN 1,000 MCG TABLET (FP) PO SCH (13:16)
[2018-05-05] MEDS: ZINC SULFATE 220 MG CAPSULE (FP) PO SCH (13:16)
[2018-05-05] MEDS: MULTIVITAMINS (DAILY MVI) TABLET (FP) PO SCH (13:16)
[2018-05-05] MEDS: SODIUM CHLORIDE 1 GM TABLET PO SCH ×2 (13:17→22:31)
[2018-05-05] MEDS: SERTRALINE HCL 50 MG TABLET (FP) PO SCH (13:17)
--- NOTE | 2018-05-05 13:34 | CONSULT ---
Admitting History and Physical - Primary Care Physician PCP: Anne Lopez - Admission History of Present Illness: 53 year old woman with hx of Multple Sclerosis, Hypertension, Hyperlipidemia, Hypothyrodism, trigeminal neualgia, hx of hyponatremia/SIADH who presented with low serum Na as an outpatient and admitted with Advanced MS, Toxic-Metabolic Encephalopathy ,(Possibly nutritional, ? Occult infection i.e Osteomyelitis, Urosepsis, PNA, Influenza), acute worsening of serum Na. Selected Entries 05/04/18 05/04/18 05/04/18 06:55 07:21 10:00 Breakfast Eating (Feeding ) Ability Temperature 94.9 F L 94.9 F L 95.0 F L 05/04/18 05/04/18 05/05/18 14:00 17:43 06:00 Breakfast Eating (Feeding Total ) Ability Assistance Temperature 96.1 F L 98.9 F 98.6 F 05/05/18 12:08 Breakfast 0 Eating (Feeding ) Ability Temperature Laboratory Tests 05/04/18 05/05/18 05:30 07:35 WBC 3.9 L Sodium 116 L* Albumin 2.6 L Awake, on ventilator, oriented, mouthing words,oral dryness. Pt is NPO. Pt's mother reports that she was on soft diet and tolerated oatmeal and thin liquid in ER yesterday morning. At that time, she was off the vent, and used PMV. Pt on trach collar with PMV all day at home, and on vent nighttime. History Source: Family Member, Medical Record Limitations to Obtaining History: Clinical Condition (vent support) - Past Medical History [employer]ER: Yes: Multiple Sclerosis (quadraplegia), Other (legally blind, trigeminal neuralgia -> baclofen pump) Cardiovascular: Yes: HTN, Hyperlipdemia Pulmonary: Yes: Pneumonia, Previously Intubated, Other Gastrointestinal: Yes: Constipation (chronic) Hepatobiliary: Yes: Cholelithiasis Renal/: Yes: Neurogenic Bladder ( neurogenic bladder, chronic perera catheter) ...LMP: 06/07/12 Heme/Onc: Yes: Anemia Infectious Disease: Yes: Other (pneumonia, uti treated by urologist) Musculoskeletal: Yes: Other (Quadraplegia) Dermatology: Yes: Other (chronic decubitus followed by wound care) - Past Surgical History Past Surgical History: Yes: Colonoscopy - Smoking History Smoking history: Never smoked Have you smoked in the past 12 months: No Aproximately how many cigarettes per day: 0 - Alcohol/Substance Use Hx Alcohol Use: No History of Substance Use: reports: None - Social History ADL: Support Services History of Recent Travel: No History - Admission Reason For Visit: HYPONATREMIA,HYPOTHERMIA - Diagnostics X-ray: Report Reviewed - General Mental Status: Alert and Oriented, Awake and Alert, Able to Follow Commands, Flat Affect Attention: Intact Ability to Follow Directions: Fair Head/Neck Control: Impaired - Hearing Hearing: Normal Speech Evaluation - Communication Primary Language: [place] Oral Expression Ability: Yes: Non-Vocal (on vent/mouthing words) - Speech Characteristics Articulation: Yes: Precise - Swallow Evaluation/Bedside Assessment Current Nutritional Intake: NPO Oral Secretions: Yes: Dryness Dentition: Yes: Adequate Facial Symmetry at Rest: Symmetrical Facial Symmetry on Retraction: Symmetrical Against Resistance Opening: Weak Against Resistance Closing: Weak Pucker Lips: Normal, Weak Smile: Normal, Weak Lingual Movement: Normal, Symmetric Laryngeal Movement: Able to Palpate Recommendations - Speech Evaluation, Impression/Plan Impression: NPO, on Ventilator, Sodium low, being transferred to ICU. PO trial deferred per MD. - Dysphagia Impressions/Plan Dysphagia Impressions: Ongoing Evaluation *Silent aspiration: cannot be R/O at bedside Recommendations: Other (to follow)
--- NOTE | 2018-05-05 13:53 | CONSULT ---
Consultation: REQUESTING PROVIDER: Dr. Lopez CONSULT REQUEST: We have been asked to medically evaluate this patient for Hyponatremia. HISTORY OF PRESENT ILLNESS: Patient is a 53 year old female with a PMHx of Multiple Sclerosis (functional quadriplegic, trach collar, Baclofen pump, perera), HTN, HLD, Hypothyroidism, trigeminal neuralgia who presented to the ED after her PCP recommended to come in due to abnormal CMP labs and one week history of . When patient arrived she found to have hypothermia and hyponatremia of 126 on 05/03/18. Today, patient was more lethargic and found to have a sodium level of 116. Upon further questioning, patient's mother reports for the last week she was adjusting her anti-htn medications with the PCP because patient was having persistent hypertension. Upon my evaluation, patient was more awake, alert and responding to verbal commands. Denies any pain, shortness of breath or chest pain. PAST MEDICAL HISTORY: Multiple sclerosis (functional quadriplegic, trach collar, Baclofen pump, perera) Toxic Encephalopathy HTN HLD Hypothyroidism Trigeminal Neuralgia PAST SURGICAL HISTORY: Trach collar placement Baclofen pump Social History: Smoking: no Alcohol: no Drugs: no REVIEW OF SYSTEMS: Unable to obtain PHYSICAL EXAMINATION Vital Signs 05/05/18 05/05/18 09:30 10:00 Temperature Pulse Rate 103 H Respiratory 19 Rate Blood Pressure O2 Sat by Pulse 98 Oximetry (%) GENERAL: Awake, alert, responding to verbal commands but not audible due to trach in place HEAD: Normal with no signs of trauma. EYES: Pupils equal, round and reactive to light, sclera anicteric, conjunctiva clear. ENT: Dry mucous membranes with oral thrush NECK: (-) JVD, (+) Trach collar LUNGS: Bilateral Rhonchi throughout upper lung bases and anteriorly. No accessory muscle use. Mechanically ventilated HEART: Regular rate and rhythm, normal S1 and S2 without murmur, rub or gallop. ABDOMEN: Soft, nontender, not distended, normoactive bowel sounds, no guarding, no rebound, no masses. MUSCULOSKELETAL: No CVA tenderness. EXTREMITIES: 2+ pulses, warm, well-perfused. No calf tenderness. Trace pitting edema NEUROLOGICAL: Unable to fully assess due to patients medical condition SKIN: (+) Stage III sacral ulcer, with multiple pressure injuries in the sacral and coccyx area. Laboratory Results 05/04/18 05:30 05/05/18 07:35 05/05/18 07:35 Total Bilirubin 0.4 AST 35 ALT 50 Alkaline Phosphatase 256 H Urine Test Results Urine Color Red 05/03/18 17:40 Urine Appearance Slcloudy 05/03/18 17:40 Urine pH 7.0 (5.0-8.0) 05/03/18 17:40 Ur Specific Kyle 1.005 (1.010-1.035) L 05/03/18 17:40 Urine Protein 2+ (NEGATIVE) H 05/03/18 17:40 Urine Glucose (UA) Negative (NEGATIVE) 05/03/18 17:40 Urine Ketones Negative (NEGATIVE) 05/03/18 17:40 Urine Blood Negative (NEGATIVE) 05/03/18 17:40 Urine Nitrite Negative (NEGATIVE) 05/03/18 17:40 Urine Bilirubin Negative (<2.0 mg/dL) 05/03/18 17:40 Ur Leukocyte Esterase 1+ (NEGATIVE) H D 05/03/18 17:40 Ur Epithelial Cells Rare /HPF (FEW) 05/03/18 17:40 Urine Bacteria Rare /hpf (NONE SEEN) 05/03/18 17:40 Active Medications Generic Name Dose Route Start Last Admin Trade Name Freq PRN Reason Stop Dose Admin Albuterol/Ipratropium 1 amp 05/04/18 08:00 05/05/18 08:45 Duoneb - NEB 1 amp RQID [facility] Administration Ascorbic Acid 500 mg 05/04/18 10:00 05/05/18 13:16 Vitamin C - PO Not Given DAILY [facility] Bacitracin 1 applic 05/03/18 22:00 05/04/18 22:33 Bacitracin - TP Not Given BID [facility] Carbamazepine 100 mg 05/04/18 14:00 05/05/18 13:18 Tegretol - PO Not Given TID [facility] Collagenase 1 applic 05/04/18 10:00 05/04/18 13:53 Santyl - TP 1 applic DAILY [facility] Administration Protocol Cyanocobalamin 1,000 mcg 05/04/18 10:00 05/05/18 13:16 Vitamin B12 - PO Not Given DAILY [facility] Ferrous Sulfate 325 mg 05/04/18 10:00 05/05/18 13:13 Feosol - PO Not Given DAILY [facility] Folic Acid 1 mg 05/04/18 10:00 05/05/18 13:14 Folic Acid - PO Not Given DAILY [facility] Hydralazine HCl 50 mg 05/04/18 14:00 05/05/18 13:18 Apresoline - PO Not Given TID [facility] Lactobacillus Acidophilus 1 tab 05/03/18 22:00 05/05/18 13:13 Bacid - PO Not Given BID [facility] Levothyroxine Sodium 75 mcg 05/06/18 10:00 Synthroid Injection - IVPUSH DAILY [facility] Loperamide HCl 1 mg 05/03/18 20:24 Imodium Liquid - PO Q8H PRN DI[facility]A Loratadine 10 mg 05/04/18 10:00 05/05/18 13:13 Claritin - PO Not Given DAILY [facility] Melatonin 2 mg 05/04/18 22:00 05/04/18 22:41 Melatonin PO 2 mg HS [facility] Administration Metoprolol Succinate 50 mg 05/04/18 10:00 05/05/18 13:16 Toprol Xl - PO Not Given BID [facility] Mirtazapine 7.5 mg 05/03/18 22:00 05/04/18 22:34 Remeron - PO 7.5 mg HS [facility] Administration Multivitamins/Minerals/Vitamin C 1 tab 05/04/18 10:00 05/05/18 13:16 Tab-A-Vit - PO Not Given DAILY [facility] Nystatin/Triamcinolone Acetonide 1 applic 05/03/18 22:00 05/04/18 22:34 Mycolog Ii Cream - TP Not Given BID [facility] Pantoprazole Sodium 40 mg 05/05/18 22:00 Protonix Iv IVPUSH BID [facility] Sertraline HCl 50 mg 05/04/18 10:00 05/05/18 13:17 Zoloft - PO Not Given DAILY [facility] Sodium Chloride 1 gm 05/05/18 12:30 05/05/18 13:17 Sodium Chloride Tablet - PO Not Given BID [facility] Thiamine HCl 250 mg 05/04/18 14:45 05/05/18 06:41 Vitamin B1 Injection - IVPB 05/07/18 14:44 250 mg TID [facility] Administration Zinc Sulfate 220 mg 05/04/18 10:00 05/05/18 13:16 Orazinc - PO Not Given DAILY [facility] ASSESSMENT/PLAN: Patient is a 53 year old female who presented here for fatigue and was found to have severe hyponatremia. Patient was transferred to ICU due to worsening hyponatremia for further monitoring and management. NEURO #Toxic Metabolic Encephalopathy -Likely secondary to worsening hyponatremia -Improving. Patient now more awake and alert -Was on IV NS but has been stopped -Repeat Sodium today at 1700 #functional quadriplegic -Due to advanced Multiple Sclerosis -Continue Baclofen Pump #Multiple Sclerosis -Continue Baclofen pump #Trigeminal Neuralgia -Continue Carbamazepine 100mg TID PULMONARY #Chronic respiratory failure -Continue mechanical ventilation -Continue DuoNebs QID -Maintain 02 >90% NEPHROLOGY #Acute on Chronic Severe Euvolemic Hyponatremia -Possibly secondary to SIADH as urine studies showed elevated osm -TSH wnl -Patient has history of hyponatremia but patient now presents with severe hyponatremia worsened overnight with IVF -Fluids discontinued -Patient started on Salt tabs 1gm BID -Ideally would give Lasix, however, patient remains normotensive/hypotensive so will need to hold off -Will need to monitor serum sodium Q6H with repeat at 1700 today. If worsening hyponatremia, will start hypertonic saline. CARDIOLOGY #HTN -hypotensive currently -Hold anti-htn medications -Continue to monitor BP ENDOCRINOLOGY #Hypothyroidism -Continue Synthroid IV but half the dose of PO medication INFECTIOUS DISEASE #Stage III Pressure Injury -Relief of pressure with frequent repositioning -Being followed by Wound care -Continue Collagenase, bacitracin and zinc -Continue Nutrition improvement for healing PSYCH #Depression/Anxiety/Insomnia -Continue Sertraline 50mg daily -Continue Mirtazapine 7.5mg HS -Continue Melatonin 2mg HS F/E/N -On no fluids -Severe hyponatremia. -NPO Prophylaxis -Protonix 40mg BID for GI -SCD's for DVT Disposition -Full code -ICU monitoring as patient will possibly require hypertonic saline Visit type - Emergency Visit Emergency Visit: Yes ED Registration Date: 05/04/18 Care time: The patient presented to the Emergency Department on the above date and was hospitalized for further evaluation of their emergent condition. - New Patient This patient is new to me today: Yes Date on this admission: 05/05/18 - Critical Care Critical Care patient: Yes Total Critical Care Time (in minutes): 45 Critical Care Statement: The care of this patient involved high complexity decision making to prevent further life threatening deterioration of the patient 's condition and/or to evaluate & treat vital organ system(s) failure or risk of failure.
[2018-05-05] MEDS: PANTOPRAZOLE 40 MG TABLET (FP) PO SCH (18:26)
[2018-05-05] MEDS: POTASSIUM CHLORIDE TABS 20 MEQ TABLET.ER (FP) PO SCH (18:26)
[2018-05-05 20:03] LABS: ALBUMIN 2.8 g/dl (3.4-5.0); ALK PHOS 259 U/L (45-117); ANION GAP 12 MMOL/L (8-16); BILIRUBIN,TOTAL 0.4 mg/dL (0.2-1); BLOOD UREA NITROGEN 15 mg/dL (7-18); CALCIUM 9.2 mg/dL (8.5-10.1); CHLORIDE 80 mmol/L (98-107); CO2 25 mmol/L (21-32); CREATININE 0.5 mg/dL (0.55-1.3); GLUCOSE,RANDOM 52 mg/dL (74-106); POTASSIUM 4.7 mmol/L (3.5-5.1); SGOT/AST 34 U/L (15-37); SGPT/ALT 47 U/L (13-61); TOT PROT 7.8 g/dl (6.4-8.2)
[2018-05-05 20:11] LABS: SODIUM 117 mmol/L (136-145)
[2018-05-05] MEDS ORDERED: SODIUM CHLORIDE 3% 500 ML/500 ML INFUS.BAG IV ONE ×2 (20:45→20:47)
[2018-05-05] MEDS: MELATONIN 1 MG TABLET PO SCH (22:31)
[2018-05-05] MEDS: MIRTAZAPINE 15 MG TABLET (FP) PO SCH (22:31)
[2018-05-05] MEDS ORDERED: LABETALOL HCL 5 MG/1 ML (100MG/20 ML VIAL) IVPUSH ONE (22:37)
[2018-05-05] MEDS: PANTOPRAZOLE SODIUM 40 MG VIAL IVPUSH SCH (23:09)
[2018-05-05] MEDS: CHLORHEXIDINE GLUCONATE 4% CLEANSER FOR DECOLONIZATION TP SCH (23:10)
[2018-05-05] MEDS: MUPIROCIN 2% TOPICAL OINTMENT FOR DECOLONIZATION NS SCH (23:10)
[2018-05-06 04:15] LABS: SERUM IRON SATURATION 92 % (15-55); TOTAL IRON BINDING CAPACITY 230 ug/dL (250-450); UIBC 19 ug/dL (131-425)
[2018-05-06] MEDS ORDERED: PT OWN MED DRAWER 7, Y5N ONE ×5 (05:56→21:03)
[2018-05-06 06:09] LABS: BASO % 0.3 % (0-2.0); EOS % 0.1 % (0-4.5); HEMATOCRIT 31.3 % (32.4-45.2); HEMOGLOBIN 10.7 GM/dL (10.7-15.3); LYMPH % 5.1 % (8-40); MCH 31.5 pg (25.7-33.7); MEAN CELL VOLUME 92.5 fl (80-96); MEAN PLT VOLUME 9.3 fl (7.5-11.1); MONO % 3.3 % (3.8-10.2); NEUT % 91.2 % (42.8-82.8); PLATELET COUNT 95 K/MM3 (134-434); RBC 3.38 M/mm3 (3.60-5.2)
[2018-05-06] MEDS: hydrALAZINE HCL 50 MG TABLET (FP) PO SCH ×3 (06:29→21:08)
[2018-05-06] MEDS: THIAMINE HCL 200 MG/2 ML VIAL IVPB SCH ×3 (06:29→21:11)
[2018-05-06] MEDS: carBAMazepine 100 MG TAB.CHEW PO SCH ×3 (06:29→21:08)
[2018-05-06 06:35] LABS: ALBUMIN 2.5 g/dl (3.4-5.0); ALK PHOS 228 U/L (45-117); ANION GAP 11 MMOL/L (8-16); BILIRUBIN,TOTAL 0.5 mg/dL (0.2-1); BLOOD UREA NITROGEN 21 mg/dL (7-18); CALCIUM 8.8 mg/dL (8.5-10.1); CHLORIDE 86 mmol/L (98-107); CO2 26 mmol/L (21-32); CREATININE 0.5 mg/dL (0.55-1.3); GLUCOSE,RANDOM 64 mg/dL (74-106); POTASSIUM 4.3 mmol/L (3.5-5.1); SGOT/AST 31 U/L (15-37); SGPT/ALT 37 U/L (13-61); SODIUM 122 mmol/L (136-145); TOT PROT 7.1 g/dl (6.4-8.2)
[2018-05-06] MEDS: ALBUTEROL SO4 2.5/IPRATROPIUM 0.5 INH SOL 3 ML VIAL.NEB. NEB SCH ×4 (07:40→20:30)
[2018-05-06] MEDS: LEVOTHYROXINE SODIUM 100 MCG VIAL IVPUSH SCH (07:43)
--- NOTE | 2018-05-06 08:11 | PN ---
Physical Exam: SUBJECTIVE: Patient seen and examined at bedside this morning. She is mechanically ventilated via tracheostmy tube. Patient communicating by nodding head, and mouthing responses. She denies subjective fevers, chills, shortness of breath chest pain, abdominal pain, nausea, vomiting, dysuria. OBJECTIVE: Vital Signs Period Temp Pulse Resp BP Sys/Morillo Pulse Ox Last 24 Hr 97.3 F-97.8 F 70-105 10-22 89-167/38-90 98-99 GENERAL: The patient is awake, alert, in no acute distress. HEAD: Normocephalic, atraumatic EYES: PERRL, EOMI, sclera anicteric, conjunctiva clear. ENT: Oropharynx clear without exudates, dry mucous membranes. NECK: Supple, tracheostomy tube intact. Site clean, dry, nondraining. LUNGS: Mechanical ventillated breath sounds equal, clear to auscultation bilaterally. No wheezes, no crackles. No accessory muscle use. HEART: Regular rate and rhythm, S1, S2 without murmur, rub or gallop. ABDOMEN: Soft, nontender, nondistended X4 quadrants. Normoactive bowel sounds X4 quadrants. No guarding, no rebound, no hepatosplenomegaly. EXTREMITIES: 2+ radial, dorsalis pedis pulses bilaterally, warm, well-perfused. No edema bilateral lower extremities. NEUROLOGICAL: Patient is functional quadriplegic. SKIN: Warm, dry. Sacral ulcer, left buttock, and right buttock ulcers noted. Bandaged clean, dry, non-draining. Laboratory Results - last 24 hr 05/04/18 05/05/18 05/05/18 18:30 07:35 07:35 WBC RBC Hgb Hct MCV MCH MCHC RDW Plt Count MPV Absolute Neuts (auto) Neutrophils % Lymphocytes % Monocytes % Eosinophils % Basophils % Nucleated RBC % ESR 71 H Sodium 116 L* Potassium 5.2 H Chloride 80 L Carbon Dioxide 27 Anion Gap 9 BUN 11 Creatinine 0.4 L Creat Clearance w eGFR > 60 Random Glucose 68 L Calcium 8.7 Iron 211 H TIBC 230 L Iron Saturation 92 H Total Bilirubin 0.4 AST 35 ALT 50 Alkaline Phosphatase 256 H Total Protein 7.4 Albumin 2.6 L 05/05/18 05/06/18 05/06/18 18:30 01:00 05:30 WBC RBC Hgb Hct MCV MCH MCHC RDW Plt Count MPV Absolute Neuts (auto) Neutrophils % Lymphocytes % Monocytes % Eosinophils % Basophils % Nucleated RBC % ESR Sodium 117 L* 120 L 123 L Potassium 4.7 Chloride 80 L Carbon Dioxide 25 Anion Gap 12 BUN 15 Creatinine 0.5 L Creat Clearance w eGFR > 60 Random Glucose 52 L Calcium 9.2 Iron TIBC Iron Saturation Total Bilirubin 0.4 AST 34 ALT 47 Alkaline Phosphatase 259 H Total Protein 7.8 Albumin 2.8 L 05/06/18 05/06/18 05:30 05:30 WBC 13.0 H RBC 3.38 L Hgb 10.7 Hct 31.3 L MCV 92.5 MCH 31.5 MCHC 34.0 RDW 16.0 H Plt Count 95 L MPV 9.3 Absolute Neuts (auto) 11.9 H Neutrophils % 91.2 H Lymphocytes % 5.1 L D Monocytes % 3.3 L Eosinophils % 0.1 D Basophils % 0.3 Nucleated RBC % 0 ESR Sodium 122 L Potassium 4.3 Chloride 86 L Carbon Dioxide 26 Anion Gap 11 BUN 21 H Creatinine 0.5 L Creat Clearance w eGFR > 60 Random Glucose 64 L Calcium 8.8 Iron TIBC Iron Saturation Total Bilirubin 0.5 AST 31 ALT 37 Alkaline Phosphatase 228 H Total Protein 7.1 Albumin 2.5 L Active Medications Generic Name Dose Route Start Last Admin Trade Name Carmen PRN Reason Stop Dose Admin Albuterol/Ipratropium 1 amp 05/04/18 08:00 05/05/18 20:30 Duoneb - NEB 1 amp RQID CATHERINE Administration Ascorbic Acid 500 mg 05/04/18 10:00 05/05/18 13:16 Vitamin C - PO Not Given DAILY CATHERINE Bacitracin 1 applic 05/03/18 22:00 05/05/18 23:09 Bacitracin - TP 1 applic BID CATHERINE Administration Carbamazepine 100 mg 05/04/18 14:00 05/06/18 06:29 Tegretol - PO Not Given TID CATHERINE Chlorhexidine Gluconate 1 applic 05/05/18 22:00 05/05/18 23:10 Hibiclens For Decolonization - TP 1 applic HS CATHERINE Administration Collagenase 1 applic 05/04/18 10:00 05/05/18 12:17 Santyl - TP 1 applic DAILY CATHERINE Administration Protocol Cyanocobalamin 1,000 mcg 05/04/18 10:00 05/05/18 13:16 Vitamin B12 - PO Not Given DAILY [facility] Ferrous Sulfate 325 mg 05/04/18 10:00 05/05/18 13:13 Feosol - PO Not Given DAILY CATHERINE Folic Acid 1 mg 05/04/18 10:00 05/05/18 13:14 Folic Acid - PO Not Given DAILY CATHERINE Hydralazine HCl 50 mg 05/05/18 22:00 05/06/18 06:29 Apresoline - PO Not Given TID CATHERINE Sodium Chloride 500 ml in 500 mls @ 30 mls/hr 05/05/18 20:47 05/05/18 20:57 Sodium Chloride 3% IV 05/06/18 13:24 30 mls/hr ASDIR ONE Administration Lactobacillus Acidophilus 1 tab 05/03/18 22:00 05/05/18 22:31 Bacid - PO Not Given BID [facility] Levothyroxine Sodium 37.5 mcg 05/06/18 07:00 Synthroid Injection - IVPUSH 0700 CATHERINE Loperamide HCl 1 mg 05/03/18 20:24 Imodium Liquid - PO Q8H PRN DIARRHEA Loratadine 10 mg 05/04/18 10:00 05/05/18 13:13 Claritin - PO Not Given DAILY [facility] Melatonin 2 mg 05/04/18 22:00 05/05/18 22:31 Melatonin PO Not Given HS [facility] Metoprolol Succinate 50 mg 05/05/18 22:00 05/05/18 22:31 Toprol Xl - PO Not Given BID [facility] Mirtazapine 7.5 mg 05/03/18 22:00 05/05/18 22:31 Remeron - PO Not Given HS [facility] Multivitamins/Minerals/Vitamin C 1 tab 05/04/18 10:00 05/05/18 13:16 Tab-A-Vit - PO Not Given DAILY [facility] Mupirocin 1 applic 05/05/18 22:00 05/05/18 23:10 Bactroban Ointment (For Decolonization) - NS 05/10/18 21:59 1 applic BID CATHERINE Administration Nystatin/Triamcinolone Acetonide 1 applic 05/03/18 22:00 05/05/18 23:10 Mycolog Ii Cream - TP 1 applic BID CATHERINE Administration Pantoprazole Sodium 40 mg 05/05/18 22:00 05/05/18 23:09 Protonix Iv IVPUSH 40 mg BID CATHERINE Administration Sertraline HCl 50 mg 05/04/18 10:00 05/05/18 13:17 Zoloft - PO Not Given DAILY CATHERINE Sodium Chloride 1 gm 05/05/18 12:30 05/05/18 22:31 Sodium Chloride Tablet - PO Not Given BID CATHERINE Thiamine HCl 250 mg 05/04/18 14:45 05/06/18 06:29 Vitamin B1 Injection - IVPB 05/07/18 14:44 250 mg TID CATHERINE Administration Zinc Sulfate 220 mg 05/04/18 10:00 05/05/18 13:16 Orazinc - PO Not Given DAILY CATHERINE ASSESSMENT/PLAN: Patient is a 53 year old female with history of multiple sclerosis, functinal quadriplegia, hypertension, hyperlipidemia, hypothyroidism, trigeminal neuralgia presented with hypothermia, hyponatreima. Admitted to ICU for management of hyponatremia. Neurological Multiple sclerosis Functional quadriplegia Trigeminal neuralgia Toxic metabolic encephalopathy -likely secondary to hyponatremia -Baclofen pump -Carbamezapine 100mg PO TID -Mirtazapine 7.5 PO HS -Neurology recommendations appreciated. Pulmonary Chronic respiratory failure s/p tracheostomy -Mechanical ventilation -DuoNebs QID -Maintain oxygen saturation greater than 90% Cardiology Hypertension -Hydralazine 50mg PO TID -Metoprolol 50mg PO BID -Monitor vital signs closely Nephrology Acute moderate euvolemic hyponatremia -Likely secondary to SIADH (plasma OSM 225, urine OSM 417. patient appears euvolemic) -Fluid restriction 800cc/ 24 hours -Patient is on 3% NaCl at 30cc/ hour. Follow Sodium Q6H. -Salt tablets 1 gram BID -Nephrology recommendations appreciated. Once Sodium greater than 125, will discontinue 3% NaCl; continuing NaCl tablets and fluid restriction. Endocrinology Hypothyroidism -Synthroid 37.5mcg IV daily Infectious disease Stage III sacral decubitus ulcer Leukocytosis -Daily wound care -Santyl dressing TP daily -Follow urinalysis, urine culture, urine for pneumonia antigens, blood culture , chest x-ray -ID consult appreciated Hematologic -Folic acid 1mg PO daily -Vitamin B12 1000 mcg PO daily -Thiamine 250mg PO TID -FESO4 325mg PO daily Gastrointestinal -NPO, pending speech swallow evaluation -Protonix 40mg IV BID Psychiatric Depression, Anxiety Insomnia -Sertaline 50mg PO daily -Mirtazapine 7.5mg Po HS -Melatonin 2 grams PO HS FEN -No IV fluids. Fluid restriction 800cc/ 24 hours -Hyponatremia, improving. Monitor CMP -NPO, pending speech swallow evaluation Prophylaxis -SCDs bilateral lower extremities Disposition -Continue care in ICU Visit type - Emergency Visit Emergency Visit: Yes ED Registration Date: 05/04/18 Care time: The patient presented to the Emergency Department on the above date and was hospitalized for further evaluation of their emergent condition. - New Patient This patient is new to me today: Yes Date on this admission: 05/06/18 - Critical Care Critical Care patient: Yes Total Critical Care Time (in minutes): 35 Critical Care Statement: The care of this patient involved high complexity decision making to prevent further life threatening deterioration of the patient 's condition and/or to evaluate & treat vital organ system(s) failure or risk of failure. - Discharge Referral Referred to [facility] Med P.C.: No
[2018-05-06] MEDS ORDERED: LEVOTHYROXINE SODIUM 100 MCG VIAL IVPUSH SCH (10:00)
[2018-05-06] MEDS: PANTOPRAZOLE SODIUM 40 MG VIAL IVPUSH SCH ×2 (10:53→21:10)
[2018-05-06] MEDS: SERTRALINE HCL 50 MG TABLET (FP) PO SCH (10:54)
[2018-05-06] MEDS: ZINC SULFATE 220 MG CAPSULE (FP) PO SCH (10:54)
[2018-05-06] MEDS: FERROUS SO4 325 MG TABLET (FP) PO SCH (10:54)
[2018-05-06] MEDS: LORATADINE 10 MG TABLET PO SCH (10:54)
[2018-05-06] MEDS: ASCORBIC ACID 500 MG TABLET (FP) PO SCH (10:54)
[2018-05-06] MEDS: MULTIVITAMINS (DAILY MVI) TABLET (FP) PO SCH (10:54)
[2018-05-06] MEDS: LACTOBACILLUS ACIDOPHILUS 1 TABLET PO SCH ×2 (10:54→21:10)
[2018-05-06] MEDS: FOLIC ACID 1 MG TABLET (FP) PO SCH (10:54)
[2018-05-06] MEDS: BACITRACIN 15 GM TUBE TOPICAL OINTMENT TP SCH ×2 (10:55→21:09)
[2018-05-06] MEDS: MUPIROCIN 2% TOPICAL OINTMENT FOR DECOLONIZATION NS SCH ×2 (10:55→21:09)
[2018-05-06] MEDS: CYANOCOBALAMIN 1,000 MCG TABLET (FP) PO SCH (11:04)
[2018-05-06] MEDS: SODIUM CHLORIDE 1 GM TABLET PO SCH ×2 (11:04→21:08)
[2018-05-06 11:26] LABS: ANISOCYTOSIS 1+; MACROCYTOSIS 0; PLATELET ESTIMATE DECREASED
[2018-05-06] MEDS: COLLAGENASE CLOSTRIDIUM HIST. 30 GRAMS TUBE TP SCH (12:00)
[2018-05-06] MEDS: NYSTATIN/TRIAMCINOLONE TOPICAL CREAM 15 GM TUBE TP SCH ×2 (12:00→21:10)
--- NOTE | 2018-05-06 12:09 | PN ---
Progress Note (short form) - Note Progress Note: Renal follow up for Hyponatremia Pt seen and examined in the ICU pt transferred to the ICU last night for hypertonic saline infusion pt is more awake and alert today on 3% saline gtt no confusion, lethargy, seizures Vital Signs Temperature 97.6 F 05/06/18 10:00 Pulse Rate 86 05/06/18 10:00 Respiratory Rate 12 05/06/18 10:00 Blood Pressure 158/64 05/06/18 10:00 O2 Sat by Pulse Oximetry (%) 99 05/06/18 09:50 Intake & Output 05/03/18 05/04/18 05/05/18 05/06/18 23:59 23:59 23:59 23:59 Intake Total 100 Output Total 1300 300 Balance -1200 -300 Weight 72.575 kg 72.575 kg NAD on vent via trach neck supple RRR Dec BS, no rales soft NT/ND No edema in LE CBC, BMP 05/06/18 05:30 05/06/18 05:30 Current Medications Albuterol/Ipratropium (Duoneb -) 1 amp NEB RQID CATHERINE Last Admin: 05/06/18 07:40 Dose: 1 amp Ascorbic Acid (Vitamin C -) 500 mg PO DAILY CATHERINE Last Admin: 05/06/18 10:54 Dose: 500 mg Bacitracin (Bacitracin -) 1 applic TP BID [facility] Last Admin: 05/06/18 10:55 Dose: 1 applic Carbamazepine (Tegretol -) 100 mg PO TID CATHERINE Last Admin: 05/06/18 06:29 Dose: Not Given Chlorhexidine Gluconate (Hibiclens For Decolonization -) 1 applic TP HS CATHERINE Last Admin: 05/05/18 23:10 Dose: 1 applic Collagenase (Santyl -) 1 applic TP DAILY [facility]; Protocol Last Admin: 05/05/18 12:17 Dose: 1 applic Cyanocobalamin (Vitamin B12 -) 1,000 mcg PO DAILY [facility] Last Admin: 05/06/18 11:04 Dose: 1,000 mcg Ferrous Sulfate (Feosol -) 325 mg PO DAILY [facility] Last Admin: 05/06/18 10:54 Dose: 325 mg Folic Acid (Folic Acid -) 1 mg PO DAILY CATHERINE Last Admin: 05/06/18 10:54 Dose: 1 mg Hydralazine HCl (Apresoline -) 50 mg PO TID [facility] Last Admin: 05/06/18 06:29 Dose: Not Given Sodium Chloride (Sodium Chloride 3%) 500 ml in 500 mls @ 30 mls/hr IV ASDIR ONE Stop: 05/06/18 13:24 Last Admin: 05/05/18 20:57 Dose: 30 mls/hr Lactobacillus Acidophilus (Bacid -) 1 tab PO BID [facility] Last Admin: 05/06/18 10:54 Dose: 1 tab Levothyroxine Sodium (Synthroid Injection -) 37.5 mcg IVPUSH 0700 [facility] Last Admin: 05/06/18 07:43 Dose: 37.5 mcg Loperamide HCl (Imodium Liquid -) 1 mg PO Q8H PRN PRN Reason: DIARRHEA Loratadine (Claritin -) 10 mg PO DAILY [facility] Last Admin: 05/06/18 10:54 Dose: 10 mg Melatonin (Melatonin) 2 mg PO HS [facility] Last Admin: 05/05/18 22:31 Dose: Not Given Metoprolol Succinate (Toprol Xl -) 50 mg PO BID [facility] Last Admin: 05/06/18 10:54 Dose: 50 mg Mirtazapine (Remeron -) 7.5 mg PO HS [facility] Last Admin: 05/05/18 22:31 Dose: Not Given Multivitamins/Minerals/Vitamin C (Tab-A-Vit -) 1 tab PO DAILY [facility] Last Admin: 05/06/18 10:54 Dose: 1 tab Mupirocin (Bactroban Ointment (For Decolonization) -) 1 applic NS BID [facility] Stop: 05/10/18 21:59 Last Admin: 05/06/18 10:55 Dose: 1 applic Nystatin/Triamcinolone Acetonide (Mycolog Ii Cream -) 1 applic TP BID [facility] Last Admin: 05/05/18 23:10 Dose: 1 applic Pantoprazole Sodium (Protonix Iv) 40 mg IVPUSH BID [facility] Last Admin: 05/06/18 10:53 Dose: 40 mg Sertraline HCl (Zoloft -) 50 mg PO DAILY [facility] Last Admin: 05/06/18 10:54 Dose: 50 mg Sodium Chloride (Sodium Chloride Tablet -) 1 gm PO BID [facility] Last Admin: 05/06/18 11:04 Dose: 1 gm Thiamine HCl (Vitamin B1 Injection -) 250 mg IVPB TID [facility] Stop: 05/07/18 14:44 Last Admin: 05/06/18 06:29 Dose: 250 mg Zinc Sulfate (Orazinc -) 220 mg PO DAILY [facility] Last Admin: 05/06/18 10:54 Dose: 220 mg 53 year old woman with hx of Multple Sclerosis, Hypertension, Hyperlipidemia, Hypothyrodism, trigeminal neualgia, hx of hyponatremia/SIADH who presented with low serum Na as an outpatient and admitted with acute worsening of serum Na. #Acute on Chronic hyponatremia likely due to SIADH #Multiple Sclerosis #Anemia #Hypertension #Small pleural effusion #Hypothyroidism Repeat serum Na at noon. If 125 or greater would discontinue hypertonic saline and maintain on fluid restriction and salt tabs alone Trend Na Q6h today. Continue fluid restriction of 800cc per day. continue ICU monitoring. Thank you Tyshawn Doe DO
--- NOTE | 2018-05-06 12:13 | PN ---
Progress Note, [employer] - Note Progress Note: Pt alert, she is oriented, however affect is not at baseline. Flat affect, slower response time, distractible. Poor head support. Delayed swallow onset, but seems fairly brisk. No overt difficulty with puree or sips of water. However, she did grimace a couple of times with larger pills (stasis?) and gagged. CXR atelectasis vs RLL PNA. REC: Careful trials of dys puree, thin liquid sips, Ensure, with head flexed with support of pillow behind her head to reduce aspiration risk Pills in applesauce, larger ones broken vs crushed, follow with water Monitor tolerance If lethargy,slower response time,cough,congestion, fever, increased secretions, hold PO.
--- NOTE | 2018-05-06 12:24 | PN ---
Progress Note, Physician Chief Complaint: AMS Hyponatremia - Current Medication List Current Medications: Active Medications Albuterol/Ipratropium (Duoneb -) 1 amp NEB RQID [facility] Last Admin: 05/06/18 11:40 Dose: 1 amp Ascorbic Acid (Vitamin C -) 500 mg PO DAILY [facility] Last Admin: 05/06/18 10:54 Dose: 500 mg Bacitracin (Bacitracin -) 1 applic TP BID [facility] Last Admin: 05/06/18 10:55 Dose: 1 applic Carbamazepine (Tegretol -) 100 mg PO TID [facility] Last Admin: 05/06/18 06:29 Dose: Not Given Chlorhexidine Gluconate (Hibiclens For Decolonization -) 1 applic TP HS [facility] Last Admin: 05/05/18 23:10 Dose: 1 applic Collagenase (Santyl -) 1 applic TP DAILY [facility]; Protocol Last Admin: 05/05/18 12:17 Dose: 1 applic Cyanocobalamin (Vitamin B12 -) 1,000 mcg PO DAILY [facility] Last Admin: 05/06/18 11:04 Dose: 1,000 mcg Ferrous Sulfate (Feosol -) 325 mg PO DAILY [facility] Last Admin: 05/06/18 10:54 Dose: 325 mg Folic Acid (Folic Acid -) 1 mg PO DAILY [facility] Last Admin: 05/06/18 10:54 Dose: 1 mg Hydralazine HCl (Apresoline -) 50 mg PO TID [facility] Last Admin: 05/06/18 06:29 Dose: Not Given Sodium Chloride (Sodium Chloride 3%) 500 ml in 500 mls @ 30 mls/hr IV ASDIR ONE Stop: 05/06/18 13:24 Last Admin: 05/05/18 20:57 Dose: 30 mls/hr Lactobacillus Acidophilus (Bacid -) 1 tab PO BID [facility] Last Admin: 05/06/18 10:54 Dose: 1 tab Levothyroxine Sodium (Synthroid Injection -) 37.5 mcg IVPUSH 0700 [facility] Last Admin: 05/06/18 07:43 Dose: 37.5 mcg Loperamide HCl (Imodium Liquid -) 1 mg PO Q8H PRN PRN Reason: DIARRHEA Loratadine (Claritin -) 10 mg PO DAILY [facility] Last Admin: 05/06/18 10:54 Dose: 10 mg Melatonin (Melatonin) 2 mg PO [facility] Last Admin: 05/05/18 22:31 Dose: Not Given Metoprolol Succinate (Toprol Xl -) 50 mg PO BID [facility] Last Admin: 05/06/18 10:54 Dose: 50 mg Mirtazapine (Remeron -) 7.5 mg PO HS [facility] Last Admin: 05/05/18 22:31 Dose: Not Given Multivitamins/Minerals/Vitamin C (Tab-A-Vit -) 1 tab PO DAILY [facility] Last Admin: 05/06/18 10:54 Dose: 1 tab Mupirocin (Bactroban Ointment (For Decolonization) -) 1 applic NS BID [facility] Stop: 05/10/18 21:59 Last Admin: 05/06/18 10:55 Dose: 1 applic Nystatin/Triamcinolone Acetonide (Mycolog Ii Cream -) 1 applic TP BID [facility] Last Admin: 05/05/18 23:10 Dose: 1 applic Pantoprazole Sodium (Protonix Iv) 40 mg IVPUSH BID [facility] Last Admin: 05/06/18 10:53 Dose: 40 mg Sertraline HCl (Zoloft -) 50 mg PO DAILY [facility] Last Admin: 05/06/18 10:54 Dose: 50 mg Sodium Chloride (Sodium Chloride Tablet -) 1 gm PO BID [facility] Last Admin: 05/06/18 11:04 Dose: 1 gm Thiamine HCl (Vitamin B1 Injection -) 250 mg IVPB TID [facility] Stop: 05/07/18 14:44 Last Admin: 05/06/18 06:29 Dose: 250 mg Zinc Sulfate (Orazinc -) 220 mg PO DAILY [facility] Last Admin: 05/06/18 10:54 Dose: 220 mg - Objective Vital Signs: Vital Signs Temperature 97.6 F 05/06/18 10:00 Pulse Rate 86 05/06/18 10:00 Respiratory Rate 13 05/06/18 11:45 Blood Pressure 158/64 05/06/18 10:00 O2 Sat by Pulse Oximetry (%) 99 05/06/18 09:50 Labs: CBC, BMP 05/06/18 05:30 05/06/18 05:30
--- NOTE | 2018-05-06 12:52 | PN ---
Progress Note (short form) - Note Progress Note: NEUROLOGY PROGRESS NOTE: Events reviewed and discussed with staff. medicine aide, Karolina, at bedside. Pt now admitted to ICU for persistent hyponatremia, now receiving hypertonic saline. PT reports limited po intake at this time. WBC 5.0 -> 13.0 with L shift NA 116-> 122 BS remain in 60s Alk phos 290-> 260 LFTs normalized Blood Cx x 2 neg. UC contaminated. ESR 74 CRP 6.1 Iron 211 TIBC 230 TIBC 92% Previous Chest xray: L pleural effusion GODFREY: -Lhermitte's. On mechanical vent. Raza draining clear. NEURO EXAM: Dry tongue Ox [facility]. January,. Does not recognize me. Severely reduced rapid tongue mvmt's. Decreased Gag Tetraplegic. Areflexic. Reduced pinch in all fours. Impression: Advanced MS Toxic-Metabolic Encephalopathy (Hyponatremia, r/o Occult infection) Suggest: Broad spectrum Abx to cover patient while awaiting repeat results ID, Vascular, Wound care, Pulmonary consults appreciated. Slow correction of hyponatremia Encourage po intake if tolerated, pt may require parenteral nutrition Thank you very much, Rom Conroy MD
--- NOTE | 2018-05-06 12:57 | PN ---
Teaching Attending Note Name of Resident: Bravo Ortega ATTENDING PHYSICIAN STATEMENT I saw and evaluated the patient. I reviewed the resident's note and discussed the case with the resident. I agree with the resident's findings and plan as documented. SUBJECTIVE: Patient seen and examined in the ICU. More awake and alert today, closer to her baseline. Still NPO. Required hypertonic saline for severe hyponatremia. Na improved to 123 from 117. Intake & Output 05/03/18 05/04/18 05/05/18 05/06/18 23:59 23:59 23:59 23:59 Intake Total 100 Output Total 1300 300 Balance -1200 -300 Weight 160 lb 160 lb Last Vital Signs Temp Pulse Resp BP Pulse Ox 97.6 F 88 12 142/64 99 05/06/18 10:00 05/06/18 12:00 05/06/18 12:00 05/06/18 12:00 05/06/18 09:50 Active Medications Albuterol/Ipratropium (Duoneb -) 1 amp NEB RQID [facility] Last Admin: 05/06/18 11:40 Dose: 1 amp Ascorbic Acid (Vitamin C -) 500 mg PO DAILY [facility] Last Admin: 05/06/18 10:54 Dose: 500 mg Bacitracin (Bacitracin -) 1 applic TP BID [facility] Last Admin: 05/06/18 10:55 Dose: 1 applic Carbamazepine (Tegretol -) 100 mg PO TID [facility] Last Admin: 05/06/18 06:29 Dose: Not Given Chlorhexidine Gluconate (Hibiclens For Decolonization -) 1 applic TP HS [facility] Last Admin: 05/05/18 23:10 Dose: 1 applic Collagenase (Santyl -) 1 applic TP DAILY [facility]; Protocol Last Admin: 05/05/18 12:17 Dose: 1 applic Cyanocobalamin (Vitamin B12 -) 1,000 mcg PO DAILY [facility] Last Admin: 05/06/18 11:04 Dose: 1,000 mcg Ferrous Sulfate (Feosol -) 325 mg PO DAILY [facility] Last Admin: 05/06/18 10:54 Dose: 325 mg Folic Acid (Folic Acid -) 1 mg PO DAILY [facility] Last Admin: 05/06/18 10:54 Dose: 1 mg Hydralazine HCl (Apresoline -) 50 mg PO TID [facility] Last Admin: 05/06/18 06:29 Dose: Not Given Sodium Chloride (Sodium Chloride 3%) 500 ml in 500 mls @ 30 mls/hr IV [facility] Stop: 05/06/18 13:24 Last Admin: 05/05/18 20:57 Dose: 30 mls/hr Lactobacillus Acidophilus (Bacid -) 1 tab PO BID [facility] Last Admin: 05/06/18 10:54 Dose: 1 tab Levothyroxine Sodium (Synthroid Injection -) 37.5 mcg IVPUSH 0700 [facility] Last Admin: 05/06/18 07:43 Dose: 37.5 mcg Loperamide HCl (Imodium Liquid -) 1 mg PO Q8H PRN PRN Reason: DIARRHEA Loratadine (Claritin -) 10 mg PO DAILY [facility] Last Admin: 05/06/18 10:54 Dose: 10 mg Melatonin (Melatonin) 2 mg PO [facility] Last Admin: 05/05/18 22:31 Dose: Not Given Metoprolol Succinate (Toprol Xl -) 50 mg PO BID [facility] Last Admin: 05/06/18 10:54 Dose: 50 mg Mirtazapine (Remeron -) 7.5 mg PO [facility] Last Admin: 05/05/18 22:31 Dose: Not Given Multivitamins/Minerals/Vitamin C (Tab-A-Vit -) 1 tab PO DAILY [facility] Last Admin: 05/06/18 10:54 Dose: 1 tab Mupirocin (Bactroban Ointment (For Decolonization) -) 1 applic NS BID [facility] Stop: 05/10/18 21:59 Last Admin: 05/06/18 10:55 Dose: 1 applic Nystatin/Triamcinolone Acetonide (Mycolog Ii Cream -) 1 applic TP BID [facility] Last Admin: 05/05/18 23:10 Dose: 1 applic Pantoprazole Sodium (Protonix Iv) 40 mg IVPUSH BID [facility] Last Admin: 05/06/18 10:53 Dose: 40 mg Sertraline HCl (Zoloft -) 50 mg PO DAILY [facility] Last Admin: 05/06/18 10:54 Dose: 50 mg Sodium Chloride (Sodium Chloride Tablet -) 1 gm PO BID [facility] Last Admin: 05/06/18 11:04 Dose: 1 gm Thiamine HCl (Vitamin B1 Injection -) 250 mg IVPB TID [facility] Stop: 05/07/18 14:44 Last Admin: 05/06/18 06:29 Dose: 250 mg Zinc Sulfate (Orazinc -) 220 mg PO DAILY [facility] Last Admin: 05/06/18 10:54 Dose: 220 mg GENERAL: More awake and alert, responding to verbal commands HEAD: Normal with no signs of trauma. EYES: Pupils equal, round and reactive to light, sclera anicteric, conjunctiva clear. ENT: Dry mucous membranes with oral thrush NECK: (-) JVD, (+) Trach intact LUNGS: Bilateral scattered rhonchi. Mechanically ventilated HEART: Regular rate and rhythm, normal S1 and S2 without murmur, rub or gallop. ABDOMEN: Soft, nontender, not distended, normoactive bowel sounds, no guarding, no rebound, no masses. MUSCULOSKELETAL: No CVA tenderness. EXTREMITIES: 2+ pulses, warm, well-perfused. No calf tenderness. Trace pitting edema NEUROLOGICAL: paraplegic SKIN: (+) Stage III sacral ulcer, with multiple pressure injuries in the sacral and coccyx area. Laboratory Results - last 24 hr 05/04/18 05/05/18 05/06/18 18:30 18:30 01:00 WBC RBC Hgb Hct MCV MCH MCHC RDW Plt Count MPV Absolute Neuts (auto) Neutrophils % Neutrophils % (Manual) Band Neutrophils % Lymphocytes % Lymphocytes % (Manual) Monocytes % Monocytes % (Manual) Eosinophils % Eosinophils % (Manual) Basophils % Basophils % (Manual) Myelocytes % (Man) Promyelocytes % (Man) Blast Cells % (Manual) Nucleated RBC % Metamyelocytes Hypochromia Platelet Estimate Polychromasia Poikilocytosis Basophilic Stippling Anisocytosis Microcytosis Macrocytosis Sodium 117 L* 120 L Potassium 4.7 Chloride 80 L Carbon Dioxide 25 Anion Gap 12 BUN 15 Creatinine 0.5 L Creat Clearance w eGFR > 60 Random Glucose 52 L Calcium 9.2 Iron 211 H TIBC 230 L Iron Saturation 92 H Total Bilirubin 0.4 AST 34 ALT 47 Alkaline Phosphatase 259 H Total Protein 7.8 Albumin 2.8 L 05/06/18 05/06/18 05/06/18 05:30 05:30 05:30 WBC 13.0 H RBC 3.38 L Hgb 10.7 Hct 31.3 L MCV 92.5 MCH 31.5 MCHC 34.0 RDW 16.0 H Plt Count 95 L MPV 9.3 Absolute Neuts (auto) 11.9 H Neutrophils % 91.2 H Neutrophils % (Manual) 90.1 H Band Neutrophils % 4.9 Lymphocytes % 5.1 L D Lymphocytes % (Manual) 4.0 L D Monocytes % 3.3 L Monocytes % (Manual) 1 L Eosinophils % 0.1 D Eosinophils % (Manual) 0.0 Basophils % 0.3 Basophils % (Manual) 0.0 Myelocytes % (Man) 0 Promyelocytes % (Man) 0 Blast Cells % (Manual) 0 Nucleated RBC % 0 Metamyelocytes 0 Hypochromia 0 Platelet Estimate Decreased Polychromasia 0 Poikilocytosis 0 Basophilic Stippling 1+ Anisocytosis 1+ Microcytosis 1+ Macrocytosis 0 Sodium 123 L 122 L Potassium 4.3 Chloride 86 L Carbon Dioxide 26 Anion Gap 11 BUN 21 H Creatinine 0.5 L Creat Clearance w eGFR > 60 Random Glucose 64 L Calcium 8.8 Iron TIBC Iron Saturation Total Bilirubin 0.5 AST 31 ALT 37 Alkaline Phosphatase 228 H Total Protein 7.1 Albumin 2.5 L ASSESSMENT/PLAN: AMS due to Severe Hyponatremia Toxic Metabolic Encephalopathy Functional Quadriplegia Multiple Sclerosis Trigeminal Neuralgia Acute on chronic respiratory failure HTN Hypothyroidism Depression Anxiety Hypertonic saline for Na less than 120 Close monitoring of Na level Q6 hours Swallow evaluation Wean as tolerated Strict I & O Baclofen pump BD TX PRN Daily weights Salt tabs Fluid restriction Continue ICU for severe hyponatremia / ventilator management Dr Fox Critical care time spent in reviewing chart, evaluating patient and formulating plan - 36 minutes.
[2018-05-06 13:45] LABS: ANION GAP 9 MMOL/L (8-16); BLOOD UREA NITROGEN 21 mg/dL (7-18); CALCIUM 8.7 mg/dL (8.5-10.1); CHLORIDE 91 mmol/L (98-107); CO2 27 mmol/L (21-32); CREATININE 0.4 mg/dL (0.55-1.3); GLUCOSE,RANDOM 65 mg/dL (74-106); POTASSIUM 4.1 mmol/L (3.5-5.1); SODIUM 127 mmol/L (136-145)
[2018-05-06] MEDS ORDERED: SODIUM CHLORIDE 250 ML IV STA (14:10)
--- NOTE | 2018-05-06 14:20 | PN ---
Progress Note (short form) - Note Progress Note: ID consult dictated imp/reccd 53 yo female with MS, functional quadraplegia, chonic perera, chronic resp failure admitted for hypotnatremia admitted to ICU for hypertonic saline04/23 now alert afebrile noted today to have elevated wbc and RLL infiltrate versus atelectasis cultures blood/sputum'/urinary antigens chest PT empiric levaquin for now clinically appears well d/w ICU resident Problem List - Problems (1) Leukocytosis Code(s): D72.829 - ELEVATED WHITE BLOOD CELL COUNT, UNSPECIFIED (2) Hyponatremia Code(s): E87.1 - HYPO-OSMOLALITY AND HYPONATREMIA (3) Chronic respiratory failure Code(s): J96.10 - CHRONIC RESPIRATORY FAILURE, UNSP W HYPOXIA OR HYPERCAPNIA (4) Functional 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
[2018-05-06 15:21] LABS: URINE APPEARANCE SLCLOUDY; URINE BILIRUBIN NEGATIVE (<2.0 mg/dL); URINE COLOR YELLOW; URINE GLUCOSE (UA) NEGATIVE (NEGATIVE); URINE KETONE 1+ (NEGATIVE); URINE LEUK ESTERASE 2+ (NEGATIVE); URINE NITRITE NEGATIVE (NEGATIVE); URINE PROTEIN 2+ (NEGATIVE); URINE UROBILINOGEN NEGATIVE mg/dL (0.2-1.0)
[2018-05-06 16:03] LABS: TRIPLE PHOSPHATE CRYSTAL RARE /hpf (NONE SEEN)
[2018-05-06] MEDS ORDERED: clonazePAM 0.5 MG TABLET PO ONE (20:18)
[2018-05-06 20:27] LABS: ANION GAP 8 MMOL/L (8-16); BLOOD UREA NITROGEN 18 mg/dL (7-18); CALCIUM 9.2 mg/dL (8.5-10.1); CHLORIDE 92 mmol/L (98-107); CO2 26 mmol/L (21-32); CREATININE 0.5 mg/dL (0.55-1.3); GLUCOSE,RANDOM 91 mg/dL (74-106); SODIUM 127 mmol/L (136-145)
[2018-05-06] MEDS: MELATONIN 1 MG TABLET PO SCH (21:09)
[2018-05-06] MEDS: CHLORHEXIDINE GLUCONATE 4% CLEANSER FOR DECOLONIZATION TP SCH (21:09)
[2018-05-06] MEDS: MIRTAZAPINE 15 MG TABLET (FP) PO SCH (21:10)
[2018-05-07] MEDS: carBAMazepine 100 MG TAB.CHEW PO SCH ×3 (06:55→22:06)
[2018-05-07] MEDS: hydrALAZINE HCL 50 MG TABLET (FP) PO SCH ×3 (06:55→22:03)
[2018-05-07] MEDS: LEVOTHYROXINE SODIUM 100 MCG VIAL IVPUSH SCH (06:56)
[2018-05-07] MEDS: THIAMINE HCL 200 MG/2 ML VIAL IVPB SCH ×2 (06:56→14:10)
[2018-05-07 07:13] LABS: HEMATOCRIT 31.2 % (32.4-45.2); HEMOGLOBIN 10.4 GM/dL (10.7-15.3); MCHC 33.2 g/dl (32.0-36.0); MEAN CELL VOLUME 93.4 fl (80-96); MEAN PLT VOLUME 8.9 fl (7.5-11.1); PLATELET COUNT 90 K/MM3 (134-434); RBC 3.34 M/mm3 (3.60-5.2); RDW 15.9 % (11.6-15.6); WHITE BLOOD COUNT 13.3 K/mm3 (4.0-10.0)
[2018-05-07 07:30] LABS: ALBUMIN 2.3 g/dl (3.4-5.0); ALK PHOS 206 U/L (45-117); ANION GAP 8 MMOL/L (8-16); BILIRUBIN,TOTAL 0.4 mg/dL (0.2-1); BLOOD UREA NITROGEN 13 mg/dL (7-18); CALCIUM 9.1 mg/dL (8.5-10.1); CHLORIDE 95 mmol/L (98-107); CO2 27 mmol/L (21-32); CREATININE 0.4 mg/dL (0.55-1.3); GLUCOSE,RANDOM 88 mg/dL (74-106); MAGNESIUM 1.7 mg/dL (1.8-2.4); PHOSPHOROUS 1.6 mg/dL (2.5-4.9); POTASSIUM 3.7 mmol/L (3.5-5.1); SGOT/AST 24 U/L (15-37); SGPT/ALT 35 U/L (13-61); SODIUM 130 mmol/L (136-145); TOT PROT 6.8 g/dl (6.4-8.2)
[2018-05-07] MEDS ORDERED: MAGNESIUM SULF 50% (8.12 MEQ/2 ML-1 GM VIAL) IVPB ONE (08:00)
[2018-05-07] MEDS ORDERED: NAPH,MB-DB/K PH,MBDB POWDER PACKET PO ONE (08:00)
[2018-05-07] MEDS: ALBUTEROL SO4 2.5/IPRATROPIUM 0.5 INH SOL 3 ML VIAL.NEB. NEB SCH ×4 (08:50→21:00)
[2018-05-07] MEDS: FOLIC ACID 1 MG TABLET (FP) PO SCH (09:12)
[2018-05-07] MEDS: LORATADINE 10 MG TABLET PO SCH (09:12)
[2018-05-07] MEDS: LACTOBACILLUS ACIDOPHILUS 1 TABLET PO SCH ×2 (09:12→22:03)
[2018-05-07] MEDS: ZINC SULFATE 220 MG CAPSULE (FP) PO SCH (09:12)
[2018-05-07] MEDS: ASCORBIC ACID 500 MG TABLET (FP) PO SCH (09:12)
[2018-05-07] MEDS: MULTIVITAMINS (DAILY MVI) TABLET (FP) PO SCH (09:12)
[2018-05-07] MEDS: FERROUS SO4 325 MG TABLET (FP) PO SCH (09:12)
[2018-05-07] MEDS: SERTRALINE HCL 50 MG TABLET (FP) PO SCH (09:13)
[2018-05-07] MEDS: BACITRACIN 15 GM TUBE TOPICAL OINTMENT TP SCH ×2 (09:14→22:07)
[2018-05-07] MEDS: PANTOPRAZOLE SODIUM 40 MG VIAL IVPUSH SCH ×2 (09:14→22:16)
[2018-05-07] MEDS ORDERED: PT OWN MED DRAWER 7, Y5N ONE (09:28)
[2018-05-07] MEDS: NYSTATIN/TRIAMCINOLONE TOPICAL CREAM 15 GM TUBE TP SCH (09:31)
[2018-05-07] MEDS: SODIUM CHLORIDE 1 GM TABLET PO SCH ×2 (09:32→22:06)
[2018-05-07] MEDS: COLLAGENASE CLOSTRIDIUM HIST. 30 GRAMS TUBE TP SCH (09:32)
[2018-05-07] MEDS: MUPIROCIN 2% TOPICAL OINTMENT FOR DECOLONIZATION NS SCH (09:32)
[2018-05-07] MEDS: CYANOCOBALAMIN 1,000 MCG TABLET (FP) PO SCH (09:33)
--- NOTE | 2018-05-07 10:37 | PN ---
Teaching Attending Note Name of Resident: Barbara Norris ATTENDING PHYSICIAN STATEMENT I saw and evaluated the patient. I reviewed the resident's note and discussed the case with the resident. I agree with the resident's findings and plan as documented. SUBJECTIVE: Patient seen and examined in the ICU. More awake and alert today. Appears at her baseline. Did not tolerate PMV and Trach collar this AM. Was able tolerate some PO intake. Intake & Output 05/04/18 05/05/18 05/06/18 05/07/18 23:59 23:59 23:59 23:59 Intake Total 100 250 Output Total 1300 900 900 Balance -1200 -650 -900 Weight 160 lb Last Vital Signs Temp Pulse Resp BP Pulse Ox 97.6 F 69 12 135/69 98 05/07/18 06:00 05/07/18 08:00 05/07/18 09:00 05/07/18 08:00 05/06/18 21:55 Active Medications Albuterol/Ipratropium (Duoneb -) 1 amp NEB RQID [facility] Last Admin: 05/06/18 20:30 Dose: 1 amp Ascorbic Acid (Vitamin C -) 500 mg PO DAILY [facility] Last Admin: 05/07/18 09:12 Dose: 500 mg Bacitracin (Bacitracin -) 1 applic TP BID [facility] Last Admin: 05/07/18 09:14 Dose: 1 applic Carbamazepine (Tegretol -) 100 mg PO TID [facility] Last Admin: 05/07/18 06:55 Dose: 100 mg Chlorhexidine Gluconate (Hibiclens For Decolonization -) 1 applic TP HS [facility] Last Admin: 05/06/18 21:09 Dose: 1 applic Collagenase (Santyl -) 1 applic TP DAILY [facility]; Protocol Last Admin: 05/07/18 09:32 Dose: 1 applic Cyanocobalamin (Vitamin B12 -) 1,000 mcg PO DAILY [facility] Last Admin: 05/07/18 09:33 Dose: 1,000 mcg Ferrous Sulfate (Feosol -) 325 mg PO DAILY [facility] Last Admin: 05/07/18 09:12 Dose: 325 mg Folic Acid (Folic Acid -) 1 mg PO DAILY [facility] Last Admin: 05/07/18 09:12 Dose: 1 mg Hydralazine HCl (Apresoline -) 50 mg PO TID [facility] Last Admin: 05/07/18 06:55 Dose: 50 mg Levofloxacin (Levaquin 500 Mg Premixed Ivpb -) 500 mg in 100 mls @ 100 mls/hr IVPB DAILY [facility]; Protocol Last Admin: 05/07/18 09:13 Dose: 100 mls/hr Lactobacillus Acidophilus (Bacid -) 1 tab PO BID [facility] Last Admin: 05/07/18 09:12 Dose: 1 tab Levothyroxine Sodium (Synthroid Injection -) 37.5 mcg IVPUSH 0700 [facility] Last Admin: 05/07/18 06:56 Dose: 37.5 mcg Loperamide HCl (Imodium Liquid -) 1 mg PO Q8H PRN PRN Reason: DIARRHEA Loratadine (Claritin -) 10 mg PO DAILY [facility] Last Admin: 05/07/18 09:12 Dose: 10 mg Melatonin (Melatonin) 2 mg PO [facility] Last Admin: 05/06/18 21:09 Dose: Not Given Metoprolol Succinate (Toprol Xl -) 50 mg PO BID [facility] Last Admin: 05/07/18 09:12 Dose: 50 mg Mirtazapine (Remeron -) 7.5 mg PO [facility] Last Admin: 05/06/18 21:10 Dose: 7.5 mg Multivitamins/Minerals/Vitamin C (Tab-A-Vit -) 1 tab PO DAILY [facility] Last Admin: 05/07/18 09:12 Dose: 1 tab Mupirocin (Bactroban Ointment (For Decolonization) -) 1 applic NS BID [facility] Stop: 05/10/18 21:59 Last Admin: 05/07/18 09:32 Dose: 1 applic Nystatin/Triamcinolone Acetonide (Mycolog Ii Cream -) 1 applic TP BID [facility] Last Admin: 05/07/18 09:31 Dose: 1 applic Pantoprazole Sodium (Protonix Iv) 40 mg IVPUSH BID [facility] Last Admin: 05/07/18 09:14 Dose: 40 mg Sertraline HCl (Zoloft -) 50 mg PO DAILY [facility] Last Admin: 05/07/18 09:13 Dose: 50 mg Sodium Chloride (Sodium Chloride Tablet -) 1 gm PO BID [facility] Last Admin: 05/07/18 09:32 Dose: 1 gm Thiamine HCl (Vitamin B1 Injection -) 250 mg IVPB TID [facility] Stop: 05/07/18 14:44 Last Admin: 05/07/18 06:56 Dose: 250 mg Zinc Sulfate (Orazinc -) 220 mg PO DAILY [facility] Last Admin: 05/07/18 09:12 Dose: 220 mg GENERAL: More awake and alert, NAD HEAD: Normal with no signs of trauma. EYES: Pupils equal, round and reactive to light, sclera anicteric, conjunctiva clear. ENT: Dry mucous membranes with oral thrush NECK: (-) JVD, (+) Trach intact LUNGS: Bilateral scattered rhonchi. Mechanically ventilated HEART: Regular rate and rhythm, normal S1 and S2 without murmur, rub or gallop. ABDOMEN: Soft, nontender, not distended, normoactive bowel sounds, no guarding, no rebound, no masses. MUSCULOSKELETAL: No CVA tenderness. EXTREMITIES: 2+ pulses, warm, well-perfused. No calf tenderness. Trace pitting edema NEUROLOGICAL: paraplegic SKIN: (+) Stage III sacral ulcer, with multiple pressure injuries in the sacral and coccyx area. Laboratory Results - last 24 hr 05/06/18 05/06/18 05/06/18 05:30 12:40 14:30 WBC RBC Hgb Hct MCV MCH MCHC RDW Plt Count MPV Neutrophils % (Manual) 90.1 H Band Neutrophils % 4.9 Lymphocytes % (Manual) 4.0 L D Monocytes % (Manual) 1 L Eosinophils % (Manual) 0.0 Basophils % (Manual) 0.0 Myelocytes % (Man) 0 Promyelocytes % (Man) 0 Blast Cells % (Manual) 0 Metamyelocytes 0 Hypochromia 0 Platelet Estimate Decreased Polychromasia 0 Poikilocytosis 0 Basophilic Stippling 1+ Anisocytosis 1+ Microcytosis 1+ Macrocytosis 0 Sodium 127 L Potassium 4.1 Chloride 91 L Carbon Dioxide 27 Anion Gap 9 BUN 21 H Creatinine 0.4 L Creat Clearance w eGFR > 60 Random Glucose 65 L Calcium 8.7 Phosphorus Magnesium Total Bilirubin AST ALT Alkaline Phosphatase Total Protein Albumin Urine Color Yellow Urine Appearance Slcloudy Urine pH 8.0 Ur Specific [place] 1.011 Urine Protein 2+ H Urine Glucose (UA) Negative Urine Ketones 1+ H Urine Blood 1+ H Urine Nitrite Negative Urine Bilirubin Negative Urine Urobilinogen Negative Ur Leukocyte Esterase 2+ H Urine WBC (Auto) 5 Urine RBC (Auto) 1 Triple Phos Crystals Rare 05/06/18 05/07/18 05/07/18 18:30 05:30 05:30 WBC RBC Hgb Hct MCV MCH MCHC RDW Plt Count MPV Neutrophils % (Manual) Band Neutrophils % Lymphocytes % (Manual) Monocytes % (Manual) Eosinophils % (Manual) Basophils % (Manual) Myelocytes % (Man) Promyelocytes % (Man) Blast Cells % (Manual) Metamyelocytes Hypochromia Platelet Estimate Polychromasia Poikilocytosis Basophilic Stippling Anisocytosis Microcytosis Macrocytosis Sodium 127 L 130 L 131 L Potassium 4.0 3.7 Chloride 92 L 95 L Carbon Dioxide 26 27 Anion Gap 8 8 BUN 18 13 Creatinine 0.5 L 0.4 L Creat Clearance w eGFR > 60 > 60 Random Glucose 91 88 Calcium 9.2 9.1 Phosphorus 1.6 L Magnesium 1.7 L Total Bilirubin 0.4 AST 24 ALT 35 Alkaline Phosphatase 206 H Total Protein 6.8 Albumin 2.3 L Urine Color Urine Appearance Urine pH Ur Specific [place] Urine Protein Urine Glucose (UA) Urine Ketones Urine Blood Urine Nitrite Urine Bilirubin Urine Urobilinogen Ur Leukocyte Esterase Urine WBC (Auto) Urine RBC (Auto) Triple Phos Crystals 05/07/18 05:30 WBC 13.3 H RBC 3.34 L Hgb 10.4 L Hct 31.2 L MCV 93.4 MCH 31.0 MCHC 33.2 RDW 15.9 H Plt Count 90 L MPV 8.9 Neutrophils % (Manual) Band Neutrophils % Lymphocytes % (Manual) Monocytes % (Manual) Eosinophils % (Manual) Basophils % (Manual) Myelocytes % (Man) Promyelocytes % (Man) Blast Cells % (Manual) Metamyelocytes Hypochromia Platelet Estimate Polychromasia Poikilocytosis Basophilic Stippling Anisocytosis Microcytosis Macrocytosis Sodium Potassium Chloride Carbon Dioxide Anion Gap BUN Creatinine Creat Clearance w eGFR Random Glucose Calcium Phosphorus Magnesium Total Bilirubin AST ALT Alkaline Phosphatase Total Protein Albumin Urine Color Urine Appearance Urine pH Ur Specific [place] Urine Protein Urine Glucose (UA) Urine Ketones Urine Blood Urine Nitrite Urine Bilirubin Urine Urobilinogen Ur Leukocyte Esterase Urine WBC (Auto) Urine RBC (Auto) Triple Phos Crystals ASSESSMENT/PLAN: AMS due to Severe Hyponatremia Toxic Metabolic Encephalopathy Functional Quadriplegia Multiple Sclerosis Trigeminal Neuralgia Acute on chronic respiratory failure HTN Hypothyroidism Depression Anxiety No indication for hypertonic saline PO as tolerated Wean as tolerated Strict I & O Baclofen pump BD TX PRN Daily weights Salt tabs Fluid restriction Vent floor Dr Fox
--- NOTE | 2018-05-07 11:25 | PN ---
Progress Note, Physician Chief Complaint: SEEN IN ICU EVENTS AND NOTES REVIEWED AWAKE ALERT DENIES COMPLAINTS - Current Medication List Current Medications: Active Medications Albuterol/Ipratropium (Duoneb -) 1 amp NEB RQID [facility] Last Admin: 05/06/18 20:30 Dose: 1 amp Ascorbic Acid (Vitamin C -) 500 mg PO DAILY [facility] Last Admin: 05/07/18 09:12 Dose: 500 mg Bacitracin (Bacitracin -) 1 applic TP BID [facility] Last Admin: 05/07/18 09:14 Dose: 1 applic Carbamazepine (Tegretol -) 100 mg PO TID [facility] Last Admin: 05/07/18 06:55 Dose: 100 mg Chlorhexidine Gluconate (Hibiclens For Decolonization -) 1 applic TP HS [facility] Last Admin: 05/06/18 21:09 Dose: 1 applic Collagenase (Santyl -) 1 applic TP DAILY [facility]; Protocol Last Admin: 05/07/18 09:32 Dose: 1 applic Cyanocobalamin (Vitamin B12 -) 1,000 mcg PO DAILY [facility] Last Admin: 05/07/18 09:33 Dose: 1,000 mcg Ferrous Sulfate (Feosol -) 325 mg PO DAILY [facility] Last Admin: 05/07/18 09:12 Dose: 325 mg Folic Acid (Folic Acid -) 1 mg PO DAILY [facility] Last Admin: 05/07/18 09:12 Dose: 1 mg Hydralazine HCl (Apresoline -) 50 mg PO TID [facility] Last Admin: 05/07/18 06:55 Dose: 50 mg Levofloxacin (Levaquin 500 Mg Premixed Ivpb -) 500 mg in 100 mls @ 100 mls/hr IVPB DAILY [facility]; Protocol Last Admin: 05/07/18 09:13 Dose: 100 mls/hr Lactobacillus Acidophilus (Bacid -) 1 tab PO BID [facility] Last Admin: 05/07/18 09:12 Dose: 1 tab Levothyroxine Sodium (Synthroid Injection -) 37.5 mcg IVPUSH 0700 [facility] Last Admin: 05/07/18 06:56 Dose: 37.5 mcg Loperamide HCl (Imodium Liquid -) 1 mg PO Q8H PRN PRN Reason: DIARRHEA Loratadine (Claritin -) 10 mg PO DAILY [facility] Last Admin: 05/07/18 09:12 Dose: 10 mg Melatonin (Melatonin) 2 mg PO HS [facility] Last Admin: 05/06/18 21:09 Dose: Not Given Metoprolol Succinate (Toprol Xl -) 50 mg PO BID [facility] Last Admin: 05/07/18 09:12 Dose: 50 mg Mirtazapine (Remeron -) 7.5 mg PO HS [facility] Last Admin: 05/06/18 21:10 Dose: 7.5 mg Multivitamins/Minerals/Vitamin C (Tab-A-Vit -) 1 tab PO DAILY [facility] Last Admin: 05/07/18 09:12 Dose: 1 tab Mupirocin (Bactroban Ointment (For Decolonization) -) 1 applic NS BID [facility] Stop: 05/10/18 21:59 Last Admin: 05/07/18 09:32 Dose: 1 applic Nystatin/Triamcinolone Acetonide (Mycolog Ii Cream -) 1 applic TP BID [facility] Last Admin: 05/07/18 09:31 Dose: 1 applic Pantoprazole Sodium (Protonix Iv) 40 mg IVPUSH BID [facility] Last Admin: 05/07/18 09:14 Dose: 40 mg Sertraline HCl (Zoloft -) 50 mg PO DAILY [facility] Last Admin: 05/07/18 09:13 Dose: 50 mg Sodium Chloride (Sodium Chloride Tablet -) 1 gm PO BID [facility] Last Admin: 05/07/18 09:32 Dose: 1 gm Thiamine HCl (Vitamin B1 Injection -) 250 mg IVPB TID [facility] Stop: 05/07/18 14:44 Last Admin: 05/07/18 06:56 Dose: 250 mg Zinc Sulfate (Orazinc -) 220 mg PO DAILY [facility] Last Admin: 05/07/18 09:12 Dose: 220 mg - Objective Vital Signs: Vital Signs Temperature 97.5 F L 05/07/18 10:00 Pulse Rate 61 05/07/18 10:00 Respiratory Rate 12 05/07/18 10:00 Blood Pressure 137/69 05/07/18 10:00 O2 Sat by Pulse Oximetry (%) 98 05/07/18 10:00 Constitutional: Yes: Mild Distress Cardiovascular: Yes: Regular Rate and Rhythm Respiratory: Yes: Cough, Diminished, On Nasal O2 Gastrointestinal: Yes: Soft Musculoskeletal: Yes: Muscle Weakness Extremities: Yes: Deformity Integumentary: Yes: Pressure Ulcer ...Motor Strength: LUE, LLE, RUE, RLE Labs: CBC, BMP 05/07/18 05:30 05/07/18 05:30 Problem List - Problems (1) Abnormal LFTs Code(s): R94.5 - ABNORMAL RESULTS OF LIVER FUNCTION STUDIES (2) Anemia Code(s): D64.9 - ANEMIA, UNSPECIFIED (3) Functional 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 (4) Hyponatremia Code(s): E87.1 - HYPO-OSMOLALITY AND HYPONATREMIA (5) Chronic hypercapnic respiratory failure Code(s): J96.12 - CHRONIC RESPIRATORY FAILURE WITH HYPERCAPNIA (6) Decubital ulcer Code(s): L89.90 - PRESSURE ULCER OF UNSPECIFIED SITE, UNSPECIFIED STAGE Qualifiers: Pressure injury location: unspecified location Pressure injury stage: unspecified pressure injury stage Qualified Code(s): L89.90 - Pressure ulcer of unspecified site, unspecified stage (7) Multiple sclerosis Code(s): G35 - MULTIPLE SCLEROSIS (8) Muscle spasticity Code(s): M62.838 - OTHER MUSCLE SPASM (9) Muscle stiffness Code(s): M62.89 - OTHER SPECIFIED DISORDERS OF MUSCLE Assessment/Plan IV ABX ID/PULM EVAL CHECK CULTURES TRANSFER TO [facility] AND F/U LABS
--- NOTE | 2018-05-07 13:16 | PN ---
Physical Exam: SUBJECTIVE: Patient seen and examined by me at bedside No acute events overnight Patient did not tolerate trach collar and Passy Skyler Valve today. However, patient did tolerate PO intake, as per mother Otherwise, patient denies any chest pain, palpitations, abdominal pain, headaches. OBJECTIVE: Vital Signs Period Temp Pulse Resp BP Sys/Morillo Pulse Ox Last 24 Hr 97.4 F-97.9 F 61-94 12-27 117-163/51-79 95-98 GENERAL: The patient is awake, alert, in no acute distress. EYES: PERRL, sclera anicteric, conjunctiva clear. ENT: Oropharynx clear without exudates, dry mucous membranes. NECK: Supple, tracheostomy tube intact. Site clean, dry, nondraining. LUNGS: Mechanical ventillated breath sounds equal, clear to auscultation bilaterally. No wheezes, no crackles. No accessory muscle use. HEART: RRR without murmur, rub or gallop. ABDOMEN: Soft, nontender, nondistended, Normoactive bowel sounds. EXTREMITIES: No edema bilateral lower extremities. NEUROLOGICAL: Patient is functional quadriplegic. SKIN: Warm, dry. Sacral ulcer, left buttock, and right buttock ulcers noted. Bandaged clean, dry, non-draining. Laboratory Results 05/07/18 05:30 Active Medications Generic Name Dose Route Start Last Admin Trade Name Carmen PRN Reason Stop Dose Admin Albuterol/Ipratropium 1 amp 05/04/18 08:00 05/07/18 12:48 Duoneb - NEB 1 amp RQID CATHERINE Administration Ascorbic Acid 500 mg 05/04/18 10:00 05/07/18 09:12 Vitamin C - PO 500 mg DAILY CATHERINE Administration Bacitracin 1 applic 05/03/18 22:00 05/07/18 09:14 Bacitracin - TP 1 applic BID CATHERINE Administration Carbamazepine 100 mg 05/04/18 14:00 05/07/18 06:55 Tegretol - PO 100 mg TID CATHERINE Administration Chlorhexidine Gluconate 1 applic 05/05/18 22:00 05/06/18 21:09 Hibiclens For Decolonization - TP 1 applic HS CATHERINE Administration Collagenase 1 applic 05/04/18 10:00 05/07/18 09:32 Santyl - TP 1 applic DAILY CATHERINE Administration Protocol Cyanocobalamin 1,000 mcg 05/04/18 10:00 05/07/18 09:33 Vitamin B12 - PO 1,000 mcg DAILY CATHERINE Administration Ferrous Sulfate 325 mg 05/04/18 10:00 05/07/18 09:12 Feosol - PO 325 mg DAILY CATHERINE Administration Folic Acid 1 mg 05/04/18 10:00 05/07/18 09:12 Folic Acid - PO 1 mg DAILY CATHERINE Administration Hydralazine HCl 50 mg 05/05/18 22:00 05/07/18 06:55 Apresoline - PO 50 mg TID CATHERINE Administration Levofloxacin 500 mg in 100 mls @ 100 mls/hr 05/06/18 14:15 05/07/18 09:13 Levaquin 500 Mg Premixed Ivpb - IVPB 100 mls/hr DAILY CATHERINE Administration Protocol Lactobacillus Acidophilus 1 tab 05/03/18 22:00 05/07/18 09:12 Bacid - PO 1 tab BID CATHERINE Administration Levothyroxine Sodium 37.5 mcg 05/06/18 07:00 05/07/18 06:56 Synthroid Injection - IVPUSH 37.5 mcg 0700 CATHERINE Administration Loperamide HCl 1 mg 05/03/18 20:24 Imodium Liquid - PO Q8H PRN DIARRHEA Loratadine 10 mg 05/04/18 10:00 05/07/18 09:12 Claritin - PO 10 mg DAILY CATHERINE Administration Melatonin 2 mg 05/04/18 22:00 05/06/18 21:09 Melatonin PO Not Given HS CATHERINE Metoprolol Succinate 50 mg 05/05/18 22:00 05/07/18 09:12 Toprol Xl - PO 50 mg BID CATHERINE Administration Mirtazapine 7.5 mg 05/03/18 22:00 05/06/18 21:10 Remeron - PO 7.5 mg HS CATHERINE Administration Multivitamins/Minerals/Vitamin C 1 tab 05/04/18 10:00 05/07/18 09:12 Tab-A-Vit - PO 1 tab DAILY CATHERINE Administration Mupirocin 1 applic 05/05/18 22:00 05/07/18 09:32 Bactroban Ointment (For Decolonization) - NS 05/10/18 21:59 1 applic BID CATHERINE Administration Nystatin/Triamcinolone Acetonide 1 applic 05/03/18 22:00 05/07/18 09:31 Mycolog Ii Cream - TP 1 applic BID CATHERINE Administration Pantoprazole Sodium 40 mg 05/05/18 22:00 05/07/18 09:14 Protonix Iv IVPUSH 40 mg BID CATHERINE Administration Sertraline HCl 50 mg 05/04/18 10:00 05/07/18 09:13 Zoloft - PO 50 mg DAILY CATHERINE Administration Sodium Chloride 1 gm 05/05/18 12:30 05/07/18 09:32 Sodium Chloride Tablet - PO 1 gm BID CATHERINE Administration Thiamine HCl 250 mg 05/04/18 14:45 05/07/18 06:56 Vitamin B1 Injection - IVPB 05/07/18 14:44 250 mg TID CATHERINE Administration Zinc Sulfate 220 mg 05/04/18 10:00 05/07/18 09:12 Orazinc - PO 220 mg DAILY CATHERINE Administration ASSESSMENT/PLAN: Patient is a 53 year old female with history of multiple sclerosis, functinal quadriplegia, hypertension, hyperlipidemia, hypothyroidism, trigeminal neuralgia presented with hypothermia, hyponatreima. Admitted to ICU for management of hyponatremia. Neurological Multiple sclerosis Functional quadriplegia Trigeminal neuralgia Toxic metabolic encephalopathy- Improved -likely secondary to hyponatremia -Baclofen pump -Carbamezapine 100mg PO TID -Mirtazapine 7.5 PO HS -Neurology recommendations appreciated. Pulmonary Chronic respiratory failure s/p tracheostomy -Mechanical ventilation, failed trach collar today and PMV -DuoNebs QID -Maintain oxygen saturation greater than 90% Cardiology Hypertension -Hydralazine 50mg PO TID -Metoprolol 50mg PO BID -Monitor vital signs closely Nephrology Acute Moderate euvolemic hyponatremia -Likely secondary to SIADH (plasma OSM 225, urine OSM 417. patient appears euvolemic) -Fluid restriction 800cc/ 24 hours -Hypertonic fluids discontinued with improved Sodium today at 131 -Salt tablets 1 gram BID -Follow Sodium Q6H. Endocrinology Hypothyroidism -Synthroid 37.5mcg IV daily Infectious disease Stage III sacral decubitus ulcer Leukocytosis -Daily wound care -Santyl dressing TP daily -Sputum cultures pending, Blood cultures NGTD, u/a underwhelming. CXR RLL infiltrate -Continue Levaquin 500mg IVPB Q24H Hematologic -Folic acid 1mg PO daily -Vitamin B12 1000 mcg PO daily -Thiamine 250mg PO TID -FESO4 325mg PO daily Gastrointestinal -Tolerated PO. -Continue Dysphagia po -Protonix 40mg IV BID Psychiatric Depression, Anxiety Insomnia -Sertaline 50mg PO daily -Mirtazapine 7.5mg Po HS -Melatonin 2 grams PO HS FEN -No IV fluids. Fluid restriction 800cc/ 24 hours -Hyponatremia, improving. Monitor CMP -Dysphagia Prophylaxis -SCDs bilateral lower extremities -Protonix 40mg IV BID for GI Disposition -Full code -Transfer to [facility] unit Barbara Norris [id number] Visit type - Emergency Visit Emergency Visit: Yes ED Registration Date: 05/04/18 Care time: The patient presented to the Emergency Department on the above date and was hospitalized for further evaluation of their emergent condition. - New Patient This patient is new to me today: No - Critical Care Critical Care patient: Yes Total Critical Care Time (in minutes): 45 Critical Care Statement: The care of this patient involved high complexity decision making to prevent further life threatening deterioration of the patient 's condition and/or to evaluate & treat vital organ system(s) failure or risk of failure.
--- NOTE | 2018-05-07 14:59 | PN ---
Progress Note, Physician Chief Complaint: The patient seen in the ICU. Mother by her side. She is intubated, and vent supported. History of Present Illness: 53 year old woman with hx of Multple Sclerosis, Hypertension, Hyperlipidemia, Hypothyrodism, trigeminal neualgia, hx of hyponatremia/SIADH who presented with low serum Na as an outpatient and admitted with acute worsening of serum Na. - Current Medication List Current Medications: Active Medications Albuterol/Ipratropium (Duoneb -) 1 amp NEB RQID CATHERINE Last Admin: 05/07/18 12:48 Dose: 1 amp Ascorbic Acid (Vitamin C -) 500 mg PO DAILY CATHERINE Last Admin: 05/07/18 09:12 Dose: 500 mg Bacitracin (Bacitracin -) 1 applic TP BID [facility] Last Admin: 05/07/18 09:14 Dose: 1 applic Carbamazepine (Tegretol -) 100 mg PO TID CATHERINE Last Admin: 05/07/18 14:09 Dose: 100 mg Chlorhexidine Gluconate (Hibiclens For Decolonization -) 1 applic TP HS [facility] Last Admin: 05/06/18 21:09 Dose: 1 applic Collagenase (Santyl -) 1 applic TP DAILY [facility]; Protocol Last Admin: 05/07/18 09:32 Dose: 1 applic Cyanocobalamin (Vitamin B12 -) 1,000 mcg PO DAILY CATHERINE Last Admin: 05/07/18 09:33 Dose: 1,000 mcg Ferrous Sulfate (Feosol -) 325 mg PO DAILY CATHERINE Last Admin: 05/07/18 09:12 Dose: 325 mg Folic Acid (Folic Acid -) 1 mg PO DAILY [facility] Last Admin: 05/07/18 09:12 Dose: 1 mg Hydralazine HCl (Apresoline -) 50 mg PO TID CATHERINE Last Admin: 05/07/18 14:09 Dose: 50 mg Levofloxacin (Levaquin 500 Mg Premixed Ivpb -) 500 mg in 100 mls @ 100 mls/hr IVPB DAILY [facility]; Protocol Last Admin: 05/07/18 09:13 Dose: 100 mls/hr Lactobacillus Acidophilus (Bacid -) 1 tab PO BID CATHERINE Last Admin: 05/07/18 09:12 Dose: 1 tab Levothyroxine Sodium (Synthroid Injection -) 37.5 mcg IVPUSH 0700 CATHERINE Last Admin: 05/07/18 06:56 Dose: 37.5 mcg Loperamide HCl (Imodium Liquid -) 1 mg PO Q8H PRN PRN Reason: DIARRHEA Loratadine (Claritin -) 10 mg PO DAILY [facility] Last Admin: 05/07/18 09:12 Dose: 10 mg Melatonin (Melatonin) 2 mg PO HS [facility] Last Admin: 05/06/18 21:09 Dose: Not Given Metoprolol Succinate (Toprol Xl -) 50 mg PO BID [facility] Last Admin: 05/07/18 09:12 Dose: 50 mg Mirtazapine (Remeron -) 7.5 mg PO [facility] Last Admin: 05/06/18 21:10 Dose: 7.5 mg Multivitamins/Minerals/Vitamin C (Tab-A-Vit -) 1 tab PO DAILY [facility] Last Admin: 05/07/18 09:12 Dose: 1 tab Mupirocin (Bactroban Ointment (For Decolonization) -) 1 applic NS BID [facility] Stop: 05/10/18 21:59 Last Admin: 05/07/18 09:32 Dose: 1 applic Nystatin/Triamcinolone Acetonide (Mycolog Ii Cream -) 1 applic TP BID [facility] Last Admin: 05/07/18 09:31 Dose: 1 applic Pantoprazole Sodium (Protonix Iv) 40 mg IVPUSH BID [facility] Last Admin: 05/07/18 09:14 Dose: 40 mg Sertraline HCl (Zoloft -) 50 mg PO DAILY [facility] Last Admin: 05/07/18 09:13 Dose: 50 mg Sodium Chloride (Sodium Chloride Tablet -) 1 gm PO BID [facility] Last Admin: 05/07/18 09:32 Dose: 1 gm Zinc Sulfate (Orazinc -) 220 mg PO DAILY [facility] Last Admin: 05/07/18 09:12 Dose: 220 mg - Objective Vital Signs: Vital Signs Temperature 97.5 F L 05/07/18 10:00 Pulse Rate 61 05/07/18 10:00 Respiratory Rate 27 H 05/07/18 12:00 Blood Pressure 137/69 05/07/18 10:00 O2 Sat by Pulse Oximetry (%) 98 05/07/18 10:00 Constitutional: Yes: Anxious, Mild Distress HENT: Yes: Normocephalic Cardiovascular: Yes: Tachycardia, S1, S2 Respiratory: Yes: Mechanically Ventilated, Rhonchi Genitourinary: No: CVA Tenderness - Left, CVA Tenderness - Right Labs: CBC, BMP 05/07/18 05:30 05/07/18 05:30 Problem List - Problems (1) Hyponatremia Code(s): E87.1 - HYPO-OSMOLALITY AND HYPONATREMIA (2) Anemia Code(s): D64.9 - ANEMIA, UNSPECIFIED Assessment/Plan 53 year old woman with hx of Multple Sclerosis, Hypertension, Hyperlipidemia, Hypothyrodism, trigeminal neualgia, hx of hyponatremia/SIADH who presented with low serum Na as an outpatient and admitted with acute worsening of serum Na. Serum Sodium has improved to 131 mEq/L. Renal functions normal. Will continue the current free water restriction. Thanks again. Will follow with you. Zuleika Pereyra MD
[2018-05-07] MEDS ORDERED: LOPERAMIDE HCL 1 MG/5 ML UNIT DOSE CUP PO PRN (17:22)
[2018-05-07] MEDS ORDERED: ZOLPIDEM TARTRATE 5 MG TABLET PO ONE (20:44)
[2018-05-07] MEDS ORDERED: CHLORHEXIDINE GLUCONATE 4% CLEANSER FOR DECOLONIZATION TP SCH (22:00)
[2018-05-07] MEDS ORDERED: MUPIROCIN 2% TOPICAL OINTMENT FOR DECOLONIZATION NS SCH (22:00)
[2018-05-07] MEDS: NYSTATIN/TRIAMCINOLONE TOPICAL OINTMENT 15 GM TUBE TP SCH (22:04)
[2018-05-07] MEDS: MELATONIN 1 MG TABLET PO SCH (22:04)
[2018-05-07] MEDS: MIRTAZAPINE 15 MG TABLET (FP) PO SCH (22:05)
[2018-05-08] MEDS: carBAMazepine 100 MG TAB.CHEW PO SCH ×4 (06:50→21:35)
[2018-05-08] MEDS: hydrALAZINE HCL 50 MG TABLET (FP) PO SCH ×4 (06:50→21:35)
[2018-05-08] MEDS: ALBUTEROL SO4 2.5/IPRATROPIUM 0.5 INH SOL 3 ML VIAL.NEB. NEB SCH ×4 (08:25→20:25)
[2018-05-08] MEDS ORDERED: PT OWN MED DRAWER 7, Y5N ONE ×5 (10:02→15:50)
[2018-05-08 10:06] LABS: HEMATOCRIT 30.1 % (32.4-45.2); HEMOGLOBIN 10.1 GM/dL (10.7-15.3); MCH 31.2 pg (25.7-33.7); MCHC 33.5 g/dl (32.0-36.0); MEAN CELL VOLUME 93.2 fl (80-96); MEAN PLT VOLUME 8.9 fl (7.5-11.1); PLATELET COUNT 116 K/MM3 (134-434); RBC 3.23 M/mm3 (3.60-5.2); RDW 15.9 % (11.6-15.6); WHITE BLOOD COUNT 18.5 K/mm3 (4.0-10.0)
--- NOTE | 2018-05-08 10:26 | PN ---
Progress Note, Physician Chief Complaint: PERSISTENT FEVERS AWAKE COMFORTABLE AIDE IS IN THE ROOM WITH HER - Current Medication List Current Medications: Active Medications Albuterol/Ipratropium (Duoneb -) 1 amp NEB RQID [facility] Last Admin: 05/08/18 08:25 Dose: 1 amp Ascorbic Acid (Vitamin C -) 500 mg PO DAILY [facility] Bacitracin (Bacitracin -) 1 applic TP BID [facility] Last Admin: 05/07/18 22:07 Dose: 1 applic Carbamazepine (Tegretol -) 100 mg PO TID [facility] Last Admin: 05/08/18 06:50 Dose: 100 mg Collagenase (Santyl -) 1 applic TP DAILY [facility]; Protocol Cyanocobalamin (Vitamin B12 -) 1,000 mcg PO DAILY [facility] Ferrous Sulfate (Feosol -) 325 mg PO DAILY [facility] Folic Acid (Folic Acid -) 1 mg PO DAILY [facility] Hydralazine HCl (Apresoline -) 50 mg PO TID [facility] Last Admin: 05/08/18 06:50 Dose: 50 mg Levofloxacin (Levaquin 500 Mg Premixed Ivpb -) 500 mg in 100 mls @ 100 mls/hr IVPB DAILY [facility]; Protocol Last Admin: 05/07/18 09:13 Dose: 100 mls/hr Lactobacillus Acidophilus (Bacid -) 1 tab PO BID [facility] Last Admin: 05/07/18 22:03 Dose: 1 tab Levothyroxine Sodium (Synthroid Injection -) 37.5 mcg IVPUSH DAILY [facility] Loperamide HCl (Imodium Liquid -) 1 mg PO Q8H PRN PRN Reason: DIARRHEA Loratadine (Claritin -) 10 mg PO DAILY [facility] Melatonin (Melatonin) 2 mg PO HS [facility] Last Admin: 05/07/18 22:04 Dose: Not Given Metoprolol Succinate (Toprol Xl -) 50 mg PO BID [facility] Last Admin: 05/07/18 22:03 Dose: 50 mg Mirtazapine (Remeron -) 7.5 mg PO HS [facility] Last Admin: 05/07/18 22:05 Dose: 7.5 mg Multivitamins/Minerals/Vitamin C (Tab-A-Vit -) 1 tab PO DAILY [facility] Nystatin/Triamcinolone Acetonide (Mycolog Ii Ointment -) 1 applic TP BID [facility] Last Admin: 05/07/18 22:04 Dose: 1 applic Pantoprazole Sodium (Protonix Iv) 40 mg IVPUSH BID [facility] Last Admin: 05/07/18 22:16 Dose: 40 mg Sertraline HCl (Zoloft -) 50 mg PO DAILY [facility] Sodium Chloride (Sodium Chloride Tablet -) 1 gm PO BID [facility] Last Admin: 05/07/18 22:06 Dose: 1 gm Zinc Sulfate (Orazinc -) 220 mg PO DAILY [facility] - Objective Vital Signs: Vital Signs Temperature 100.2 F H 05/08/18 06:00 Pulse Rate 121 H 05/08/18 06:00 Respiratory Rate 14 05/08/18 06:29 Blood Pressure 155/58 L 05/08/18 06:00 O2 Sat by Pulse Oximetry (%) 96 05/08/18 03:00 Constitutional: Yes: No Distress Cardiovascular: Yes: Regular Rate and Rhythm Respiratory: Yes: Diminished, On Nasal O2 Musculoskeletal: Yes: Muscle Weakness Neurological: Yes: Pre-Existing Deficit Labs: CBC, [facility] 05/08/18 09:20 Problem List - Problems (1) Toxic metabolic encephalopathy Code(s): G92 - TOXIC ENCEPHALOPATHY (2) Leukocytosis Code(s): D72.829 - ELEVATED WHITE BLOOD CELL COUNT, UNSPECIFIED (3) Abnormal LFTs Code(s): R94.5 - ABNORMAL RESULTS OF LIVER FUNCTION STUDIES (4) Anemia Code(s): D64.9 - ANEMIA, UNSPECIFIED (5) Functional 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 (6) Hyponatremia Code(s): E87.1 - HYPO-OSMOLALITY AND HYPONATREMIA (7) Hypothyroid Code(s): E03.9 - HYPOTHYROIDISM, UNSPECIFIED (8) Acute on chronic respiratory failure with hypoxia and hypercapnia Code(s): J96.21 - ACUTE AND CHRONIC RESPIRATORY FAILURE WITH HYPOXIA; J96.22 - ACUTE AND CHRONIC RESPIRATORY FAILURE WITH HYPERCAPNIA (9) Multiple sclerosis Code(s): G35 - MULTIPLE SCLEROSIS Assessment/Plan IV ABD PER ID TYLENOL IV RESPIRATORY SUPPORT NEBS PULM EVAL F/U ELECTROLYTES IVF PAIN CONTROL
[2018-05-08 10:37] LABS: ALBUMIN 2.2 g/dl (3.4-5.0); ALK PHOS 225 U/L (45-117); ANION GAP 6 MMOL/L (8-16); BILIRUBIN,TOTAL 0.4 mg/dL (0.2-1); BLOOD UREA NITROGEN 12 mg/dL (7-18); CALCIUM 9.1 mg/dL (8.5-10.1); CHLORIDE 96 mmol/L (98-107); CO2 30 mmol/L (21-32); CREATININE 0.4 mg/dL (0.55-1.3); GLUCOSE,RANDOM 102 mg/dL (74-106); MAGNESIUM 1.8 mg/dL (1.8-2.4); PHOSPHOROUS 1.4 mg/dL (2.5-4.9); POTASSIUM 3.9 mmol/L (3.5-5.1); SGOT/AST 23 U/L (15-37); SGPT/ALT 31 U/L (13-61); SODIUM 133 mmol/L (136-145); TOT PROT 6.7 g/dl (6.4-8.2)
[2018-05-08] MEDS: FERROUS SO4 325 MG TABLET (FP) PO SCH (10:44)
[2018-05-08] MEDS: LORATADINE 10 MG TABLET PO SCH (10:44)
[2018-05-08] MEDS ORDERED: ACETAMINOPHEN 1000 MG/100 ML VIAL (NON FORMULARY) IVPB ONE (10:44)
[2018-05-08] MEDS ORDERED: ACETAMINOPHEN 325 MG TABLET (FP) PO PRN (10:44)
[2018-05-08] MEDS: LACTOBACILLUS ACIDOPHILUS 1 TABLET PO SCH ×2 (10:44→21:35)
[2018-05-08] MEDS: ZINC SULFATE 220 MG CAPSULE (FP) PO SCH (10:45)
[2018-05-08] MEDS: FOLIC ACID 1 MG TABLET (FP) PO SCH (10:45)
[2018-05-08] MEDS: SODIUM CHLORIDE 1 GM TABLET PO SCH ×2 (10:46→21:35)
[2018-05-08] MEDS: MULTIVITAMINS (DAILY MVI) TABLET (FP) PO SCH (10:46)
[2018-05-08] MEDS: CYANOCOBALAMIN 1,000 MCG TABLET (FP) PO SCH (10:47)
[2018-05-08] MEDS: SERTRALINE HCL 50 MG TABLET (FP) PO SCH (10:47)
[2018-05-08] MEDS: ASCORBIC ACID 500 MG TABLET (FP) PO SCH (10:47)
[2018-05-08] MEDS: PANTOPRAZOLE SODIUM 40 MG VIAL IVPUSH SCH ×2 (11:10→21:33)
[2018-05-08] MEDS: LEVOTHYROXINE SODIUM 100 MCG VIAL IVPUSH SCH (11:15)
[2018-05-08] MEDS: NYSTATIN/TRIAMCINOLONE TOPICAL OINTMENT 15 GM TUBE TP SCH ×2 (11:23→21:38)
[2018-05-08] MEDS: BACITRACIN 15 GM TUBE TOPICAL OINTMENT TP SCH ×2 (11:23→21:37)
[2018-05-08] MEDS: COLLAGENASE CLOSTRIDIUM HIST. 30 GRAMS TUBE TP SCH (11:25)
--- NOTE | 2018-05-08 11:29 | PN ---
Progress Note (short form) - Note Progress Note: More sleepy today. Given Ambien and slept for a few hours. AC Mode of vent, 35% FiO2. Febrile. Intake & Output 05/05/18 05/06/18 05/07/18 05/08/18 23:59 23:59 23:59 23:59 Intake Total 100 250 420 150 Output Total 5777 816 1527 100 Balance -1200 -650 -1080 50 Weight 160 lb Last Vital Signs Temp Pulse Resp BP Pulse Ox 101.2 F H 108 H 12 146/78 96 05/08/18 10:00 05/08/18 10:00 05/08/18 10:05 05/08/18 10:00 05/08/18 03:00 Active Medications Acetaminophen (Tylenol -) 650 mg PO Q6H PRN PRN Reason: FEVER Albuterol/Ipratropium (Duoneb -) 1 amp NEB RQID [facility] Last Admin: 05/08/18 08:25 Dose: 1 amp Ascorbic Acid (Vitamin C -) 500 mg PO DAILY [facility] Last Admin: 05/08/18 10:47 Dose: Not Given Bacitracin (Bacitracin -) 1 applic TP BID [facility] Last Admin: 05/08/18 11:23 Dose: Not Given Carbamazepine (Tegretol -) 100 mg PO TID [facility] Last Admin: 05/08/18 06:50 Dose: 100 mg Collagenase (Santyl -) 1 applic TP DAILY [facility]; Protocol Last Admin: 05/08/18 11:25 Dose: Not Given Cyanocobalamin (Vitamin B12 -) 1,000 mcg PO DAILY [facility] Last Admin: 05/08/18 10:47 Dose: Not Given Ferrous Sulfate (Feosol -) 325 mg PO DAILY [facility] Last Admin: 05/08/18 10:44 Dose: Not Given Folic Acid (Folic Acid -) 1 mg PO DAILY [facility] Last Admin: 05/08/18 10:45 Dose: Not Given Hydralazine HCl (Apresoline -) 50 mg PO TID [facility] Last Admin: 05/08/18 06:50 Dose: 50 mg Levofloxacin (Levaquin 500 Mg Premixed Ivpb -) 500 mg in 100 mls @ 100 mls/hr IVPB DAILY [facility]; Protocol Last Admin: 05/08/18 10:00 Dose: 100 mls/hr Lactobacillus Acidophilus (Bacid -) 1 tab PO BID [facility] Last Admin: 05/08/18 10:44 Dose: Not Given Levothyroxine Sodium (Synthroid Injection -) 37.5 mcg IVPUSH DAILY [facility] Last Admin: 05/08/18 11:15 Dose: 37.5 mcg Loperamide HCl (Imodium Liquid -) 1 mg PO Q8H PRN PRN Reason: DIARRHEA Loratadine (Claritin -) 10 mg PO DAILY [facility] Last Admin: 05/08/18 10:44 Dose: Not Given Melatonin (Melatonin) 2 mg PO HS [facility] Last Admin: 05/07/18 22:04 Dose: Not Given Metoprolol Succinate (Toprol Xl -) 50 mg PO BID [facility] Last Admin: 05/08/18 10:47 Dose: Not Given Mirtazapine (Remeron -) 7.5 mg PO HS [facility] Last Admin: 05/07/18 22:05 Dose: 7.5 mg Multivitamins/Minerals/Vitamin C (Tab-A-Vit -) 1 tab PO DAILY [facility] Last Admin: 05/08/18 10:46 Dose: Not Given Nystatin/Triamcinolone Acetonide (Mycolog Ii Ointment -) 1 applic TP BID [facility] Last Admin: 05/08/18 11:23 Dose: Not Given Pantoprazole Sodium (Protonix Iv) 40 mg IVPUSH BID [facility] Last Admin: 05/08/18 11:10 Dose: 40 mg Sertraline HCl (Zoloft -) 50 mg PO DAILY [facility] Last Admin: 05/08/18 10:47 Dose: Not Given Sodium Chloride (Sodium Chloride Tablet -) 1 gm PO BID [facility] Last Admin: 05/08/18 10:46 Dose: Not Given Zinc Sulfate (Orazinc -) 220 mg PO DAILY [facility] Last Admin: 05/08/18 10:45 Dose: Not Given GENERAL: Sleepy but arousable, NAD HEAD: Normal with no signs of trauma. EYES: Pupils equal, round and reactive to light, sclera anicteric, conjunctiva clear. ENT: Dry mucous membranes with oral thrush NECK: (-) JVD, (+) Trach intact LUNGS: Bilateral scattered rhonchi. Mechanically ventilated HEART: Regular rate and rhythm, normal S1 and S2 without murmur, rub or gallop. ABDOMEN: Soft, nontender, not distended, normoactive bowel sounds, no guarding, no rebound, no masses. MUSCULOSKELETAL: No CVA tenderness. EXTREMITIES: 2+ pulses, warm, well-perfused. No calf tenderness. Trace pitting edema NEUROLOGICAL: paraplegic SKIN: (+) Stage III sacral ulcer, with multiple pressure injuries in the sacral and coccyx area. Laboratory Results - last 24 hr 05/08/18 05/08/18 09:20 09:20 WBC 18.5 H RBC 3.23 L Hgb 10.1 L Hct 30.1 L MCV 93.2 MCH 31.2 MCHC 33.5 RDW 15.9 H Plt Count 116 L D MPV 8.9 Sodium 133 L Potassium 3.9 Chloride 96 L Carbon Dioxide 30 Anion Gap 6 L BUN 12 Creatinine 0.4 L Creat Clearance w eGFR > 60 Random Glucose 102 Calcium 9.1 Phosphorus 1.4 L Magnesium 1.8 Total Bilirubin 0.4 AST 23 ALT 31 Alkaline Phosphatase 225 H Total Protein 6.7 Albumin 2.2 L ASSESSMENT/PLAN: AMS due to Severe Hyponatremia Toxic Metabolic Encephalopathy Functional Quadriplegia Multiple Sclerosis Trigeminal Neuralgia Acute on chronic respiratory failure HTN Hypothyroidism Depression Anxiety Follow CXR Trial of Clonazepam at night PO as tolerated Wean trials once more awake as tolerated Baclofen pump BD TX ABX per ID Dr Fox
[2018-05-08] MEDS ORDERED: clonazePAM 0.5 MG TABLET PO PRN (11:47)
--- NOTE | 2018-05-08 12:58 | PN ---
Progress Note, Physician Chief Complaint: The patient seen in her bed in the room. Transferred out of ICU. Remains vent supported. History of Present Illness: 53 year old woman with hx of Multple Sclerosis, Hypertension, Hyperlipidemia, Hypothyrodism, trigeminal neualgia, hx of hyponatremia/SIADH who presented with low serum Sodium as an outpatient and admitted with acute worsening of serum Na. - Current Medication List Current Medications: Active Medications Acetaminophen (Tylenol -) 650 mg PO Q6H PRN PRN Reason: FEVER Albuterol/Ipratropium (Duoneb -) 1 amp NEB RQID [facility] Last Admin: 05/08/18 11:54 Dose: 1 amp Ascorbic Acid (Vitamin C -) 500 mg PO DAILY [facility] Last Admin: 05/08/18 10:47 Dose: Not Given Bacitracin (Bacitracin -) 1 applic TP BID [facility] Last Admin: 05/08/18 11:23 Dose: Not Given Carbamazepine (Tegretol -) 100 mg PO TID [facility] Last Admin: 05/08/18 06:50 Dose: 100 mg Clonazepam (Klonopin -) 1 mg PO HS PRN PRN Reason: INSOMNIA Collagenase (Santyl -) 1 applic TP DAILY [facility]; Protocol Last Admin: 05/08/18 11:25 Dose: Not Given Cyanocobalamin (Vitamin B12 -) 1,000 mcg PO DAILY [facility] Last Admin: 05/08/18 10:47 Dose: Not Given Ferrous Sulfate (Feosol -) 325 mg PO DAILY [facility] Last Admin: 05/08/18 10:44 Dose: Not Given Folic Acid (Folic Acid -) 1 mg PO DAILY [facility] Last Admin: 05/08/18 10:45 Dose: Not Given Hydralazine HCl (Apresoline -) 50 mg PO TID [facility] Last Admin: 05/08/18 06:50 Dose: 50 mg Levofloxacin (Levaquin 500 Mg Premixed Ivpb -) 500 mg in 100 mls @ 100 mls/hr IVPB DAILY [facility]; Protocol Last Admin: 05/08/18 10:00 Dose: 100 mls/hr Lactobacillus Acidophilus (Bacid -) 1 tab PO BID [facility] Last Admin: 05/08/18 10:44 Dose: Not Given Levothyroxine Sodium (Synthroid Injection -) 37.5 mcg IVPUSH DAILY [facility] Last Admin: 05/08/18 11:15 Dose: 37.5 mcg Loperamide HCl (Imodium Liquid -) 1 mg PO Q8H PRN PRN Reason: DIARRHEA Loratadine (Claritin -) 10 mg PO DAILY [facility] Last Admin: 05/08/18 10:44 Dose: Not Given Melatonin (Melatonin) 2 mg PO HS [facility] Last Admin: 05/07/18 22:04 Dose: Not Given Metoprolol Succinate (Toprol Xl -) 50 mg PO BID [facility] Last Admin: 05/08/18 10:47 Dose: Not Given Mirtazapine (Remeron -) 7.5 mg PO [facility] Last Admin: 05/07/18 22:05 Dose: 7.5 mg Multivitamins/Minerals/Vitamin C (Tab-A-Vit -) 1 tab PO DAILY [facility] Last Admin: 05/08/18 10:46 Dose: Not Given Nystatin/Triamcinolone Acetonide (Mycolog Ii Ointment -) 1 applic TP BID [facility] Last Admin: 05/08/18 11:23 Dose: Not Given Pantoprazole Sodium (Protonix Iv) 40 mg IVPUSH BID [facility] Last Admin: 05/08/18 11:10 Dose: 40 mg Sertraline HCl (Zoloft -) 50 mg PO DAILY [facility] Last Admin: 05/08/18 10:47 Dose: Not Given Sodium Chloride (Sodium Chloride Tablet -) 1 gm PO BID [facility] Last Admin: 05/08/18 10:46 Dose: Not Given Zinc Sulfate (Orazinc -) 220 mg PO DAILY [facility] Last Admin: 05/08/18 10:45 Dose: Not Given - Objective Vital Signs: Vital Signs Temperature 101.2 F H 05/08/18 10:00 Pulse Rate 108 H 05/08/18 10:00 Respiratory Rate 12 05/08/18 10:05 Blood Pressure 146/78 05/08/18 10:00 O2 Sat by Pulse Oximetry (%) 96 05/08/18 03:00 Constitutional: Yes: Other (Lethargic) HENT: Yes: Normocephalic Cardiovascular: Yes: Tachycardia, S1, S2 Respiratory: Yes: CTA Bilaterally, Mechanically Ventilated, Poor Air Entry Gastrointestinal: Yes: Normal Bowel Sounds, Soft Genitourinary: No: Bladder Distention, CVA Tenderness - Left, CVA Tenderness - Right Musculoskeletal: Yes: Back Pain Neurological: Yes: Lethargy Labs: CBC, BMP 05/08/18 09:20 05/08/18 09:20 Problem List - Problems (1) Hyponatremia Code(s): E87.1 - HYPO-OSMOLALITY AND HYPONATREMIA (2) Anemia Code(s): D64.9 - ANEMIA, UNSPECIFIED Assessment/Plan 53 year old woman with hx of Multple Sclerosis, Hypertension, Hyperlipidemia, Hypothyrodism, trigeminal neualgia, hx of hyponatremia/SIADH who presented with low serum Na as an outpatient and admitted with acute worsening of serum Na. Serum Sodium has slowly improved to 133 mEq/L. Renal functions normal. Maintains good urinary output. Will continue the current free water restriction. Thanks again. Will follow with you. Zuleika Pereyra MD
--- NOTE | 2018-05-08 14:32 | PN ---
Progress Note (short form) - Note Progress Note: lethargic febrile today for the first time Vital Signs Period Temp Pulse Resp BP Sys/Morillo Pulse Ox Last 24 Hr 96.7 F-101.2 F 63-121 10-24 101-157/50-78 96-98 trach to vent cor-rrr lungs decreased bs at bases abd soft,nt ext no edema CBC, BMP 05/08/18 09:20 05/08/18 09:20 Microbiology 05/06/18 11:20 Blood - Peripheral Venous Blood Culture - Preliminary NO GROWTH OBTAINED AFTER 48 HOURS, INCUBATION TO CONTINUE FOR 3 DAYS. 05/06/18 11:38 Blood - Peripheral Venous Blood Culture - Preliminary NO GROWTH OBTAINED AFTER 48 HOURS, INCUBATION TO CONTINUE FOR 3 DAYS. 05/06/18 18:30 Sputum - Endotrachea Suction/Ventilator Gram Stain - Final 05/06/18 18:30 Sputum - Endotrachea Suction/Ventilator Sputum Culture - Preliminary Non Lactose Fermenting Gnb Non Lactose Fermenting Gnb#2 Pending Organism 05/03/18 17:40 Blood - Peripheral Venous Blood Culture - Preliminary NO GROWTH OBTAINED AFTER 96 HOURS, INCUBATION TO CONTINUE FOR 1 DAYS. 05/03/18 17:40 Blood - Peripheral Venous Blood Culture - Preliminary NO GROWTH OBTAINED AFTER 96 HOURS, INCUBATION TO CONTINUE FOR 1 DAYS. 05/06/18 14:30 Urine - Urine Raza Urine Culture - Final Contaminated: Please Repeat 05/03/18 17:40 Urine - Urine Clean Catch Urine Culture - Final Contaminated: Please Repeat cxray increased RLL infiltrate imp/reccd fever blood cultures today sputum culture pending day #3 levaquin will d/c levaquin vancomycin and zosyn f/u cultures in am respiratory failure chronic MS with functional quadraplegia Problem List - Problems (1) Leukocytosis Code(s): D72.829 - ELEVATED WHITE BLOOD CELL COUNT, UNSPECIFIED (2) Hyponatremia Code(s): E87.1 - HYPO-OSMOLALITY AND HYPONATREMIA (3) Chronic respiratory failure Code(s): J96.10 - CHRONIC RESPIRATORY FAILURE, UNSP W HYPOXIA OR HYPERCAPNIA (4) Functional 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
[2018-05-08] MEDS ORDERED: DEXTROSE 5%-WATER 100 ML IVPB ONE (14:51)
[2018-05-08] MEDS ORDERED: PIPERACILLIN/TAZOBACTAM 4.5 GM VIAL IVPB ONE (14:51)
[2018-05-08] MEDS: PIPERACILLIN/TAZOB 4.5 GM 4.5 GM in DEXTROSE 5%-WATER 100 ML IVPB SCH ×2 (15:10→17:29)
[2018-05-08] MEDS: VANCOMYCIN 1 GRAM (PRE-DOCKED) 1,000 MG/250 ML BAG IVPB SCH (15:55)
[2018-05-08] MEDS: DEXTROSE 5%-0.45% SALINE 1,000 ML IV SCH (20:07)
[2018-05-08] MEDS: MIRTAZAPINE 15 MG TABLET (FP) PO SCH (21:35)
[2018-05-08] MEDS: MELATONIN 1 MG TABLET PO SCH (21:54)
[2018-05-09] MEDS ORDERED: PIPERACILLIN/TAZOBACTAM 4.5 GM VIAL IVPB ONE ×3 (01:40→17:33)
[2018-05-09] MEDS ORDERED: DEXTROSE 5%-WATER 100 ML IVPB ONE ×3 (01:40→17:33)
[2018-05-09] MEDS: PIPERACILLIN/TAZOB 4.5 GM 4.5 GM in DEXTROSE 5%-WATER 100 ML IVPB SCH ×3 (01:52→18:20)
[2018-05-09] MEDS: VANCOMYCIN 1 GRAM (PRE-DOCKED) 1,000 MG/250 ML BAG IVPB SCH ×2 (02:29→15:45)
[2018-05-09] MEDS: carBAMazepine 100 MG TAB.CHEW PO SCH ×3 (07:21→22:22)
[2018-05-09] MEDS: hydrALAZINE HCL 50 MG TABLET (FP) PO SCH ×3 (07:21→22:35)
[2018-05-09] MEDS: ALBUTEROL SO4 2.5/IPRATROPIUM 0.5 INH SOL 3 ML VIAL.NEB. NEB SCH ×4 (07:28→20:52)
[2018-05-09 08:23] LABS: HEMATOCRIT 29.7 % (32.4-45.2); MCH 31.3 pg (25.7-33.7); MCHC 33.6 g/dl (32.0-36.0); MEAN CELL VOLUME 93.2 fl (80-96); PLATELET COUNT 135 K/MM3 (134-434); RBC 3.19 M/mm3 (3.60-5.2); RDW 16.1 % (11.6-15.6); WHITE BLOOD COUNT 16.2 K/mm3 (4.0-10.0)
[2018-05-09 08:55] LABS: ALBUMIN 2.1 g/dl (3.4-5.0); ALK PHOS 210 U/L (45-117); ANION GAP 7 MMOL/L (8-16); BILIRUBIN,TOTAL 0.7 mg/dL (0.2-1); BLOOD UREA NITROGEN 15 mg/dL (7-18); CALCIUM 9.4 mg/dL (8.5-10.1); CHLORIDE 95 mmol/L (98-107); CO2 30 mmol/L (21-32); CREATININE 0.5 mg/dL (0.55-1.3); GLUCOSE,RANDOM 102 mg/dL (74-106); POTASSIUM 3.3 mmol/L (3.5-5.1); SGOT/AST 17 U/L (15-37); SGPT/ALT 23 U/L (13-61); SODIUM 132 mmol/L (136-145); TOT PROT 6.5 g/dl (6.4-8.2)
[2018-05-09] MEDS ORDERED: PT OWN MED DRAWER 7, Y5N ONE ×3 (09:46→17:32)
[2018-05-09] MEDS: LORATADINE 10 MG TABLET PO SCH (10:00)
[2018-05-09] MEDS: LACTOBACILLUS ACIDOPHILUS 1 TABLET PO SCH ×2 (10:00→22:35)
[2018-05-09] MEDS: FERROUS SO4 325 MG TABLET (FP) PO SCH (10:01)
[2018-05-09] MEDS: FOLIC ACID 1 MG TABLET (FP) PO SCH (10:01)
[2018-05-09] MEDS: ZINC SULFATE 220 MG CAPSULE (FP) PO SCH (10:01)
[2018-05-09] MEDS: CYANOCOBALAMIN 1,000 MCG TABLET (FP) PO SCH (10:02)
[2018-05-09] MEDS: MULTIVITAMINS (DAILY MVI) TABLET (FP) PO SCH (10:02)
[2018-05-09] MEDS: SODIUM CHLORIDE 1 GM TABLET PO SCH ×3 (10:02→22:36)
[2018-05-09] MEDS: SERTRALINE HCL 50 MG TABLET (FP) PO SCH (10:03)
[2018-05-09] MEDS: ASCORBIC ACID 500 MG TABLET (FP) PO SCH (10:03)
[2018-05-09] MEDS: PANTOPRAZOLE SODIUM 40 MG VIAL IVPUSH SCH ×2 (10:50→22:22)
[2018-05-09] MEDS: LEVOTHYROXINE SODIUM 100 MCG VIAL IVPUSH SCH (10:54)
[2018-05-09 11:23] LABS: MAGNESIUM 1.6 mg/dL (1.8-2.4); PHOSPHOROUS 1.9 mg/dL (2.5-4.9)
--- NOTE | 2018-05-09 11:57 | PN ---
Progress Note (short form) - Note Progress Note: Renal follow up for Hyponatremia Pt seen and examined at the bedside sleeping but arouseable mother reports she is more groggy and has difficulty swallowing no fevers today Vital Signs Temperature 99.7 F H 05/09/18 08:55 Pulse Rate 102 H 05/09/18 08:55 Respiratory Rate 15 05/09/18 08:55 Blood Pressure 140/66 05/09/18 08:55 O2 Sat by Pulse Oximetry (%) 98 05/08/18 21:00 Intake & Output 05/06/18 05/07/18 05/08/18 05/09/18 23:59 23:59 23:59 23:59 Intake Total 250 869 257 5829 Output Total 900 1500 150 Balance -650 -1853 250 5228 NAD on vent via trach neck supple RRR Dec BS, no rales soft NT/ND No edema in LE CBC, BMP 05/09/18 07:35 05/09/18 07:35 Current Medications Acetaminophen (Tylenol -) 650 mg PO Q6H PRN PRN Reason: FEVER Albuterol/Ipratropium (Duoneb -) 1 amp NEB RQID [facility] Last Admin: 05/09/18 07:28 Dose: 1 amp Ascorbic Acid (Vitamin C -) 500 mg PO DAILY [facility] Last Admin: 05/09/18 10:03 Dose: Not Given Bacitracin (Bacitracin -) 1 applic TP BID [facility] Last Admin: 05/08/18 21:37 Dose: Not Given Carbamazepine (Tegretol -) 100 mg PO TID [facility] Last Admin: 05/09/18 07:21 Dose: Not Given Clonazepam (Klonopin -) 1 mg PO HS PRN PRN Reason: INSOMNIA Last Admin: 05/08/18 21:48 Dose: 1 mg Collagenase (Santyl -) 1 applic TP DAILY [facility]; Protocol Last Admin: 05/08/18 11:25 Dose: Not Given Cyanocobalamin (Vitamin B12 -) 1,000 mcg PO DAILY [facility] Last Admin: 05/09/18 10:02 Dose: Not Given Ferrous Sulfate (Feosol -) 325 mg PO DAILY [facility] Last Admin: 05/09/18 10:01 Dose: Not Given Folic Acid (Folic Acid -) 1 mg PO DAILY [facility] Last Admin: 05/09/18 10:01 Dose: Not Given Hydralazine HCl (Apresoline -) 50 mg PO TID [facility] Last Admin: 05/09/18 07:21 Dose: Not Given Levofloxacin (Levaquin 500 Mg Premixed Ivpb -) 500 mg in 100 mls @ 100 mls/hr IVPB DAILY [facility]; Protocol Last Admin: 05/08/18 10:00 Dose: 100 mls/hr Vancomycin HCl (Vancomycin (Pre-Docked)) 1,000 mg in 250 mls @ 166.667 mls/hr IVPB Q12H [facility]; Protocol Last Admin: 05/09/18 02:29 Dose: 166.667 mls/hr Piperacillin Sod/Tazobactam (Sod 4.5 gm/ Dextrose) 100 mls @ 200 mls/hr IVPB Q8H-IV [facility]; Protocol Last Admin: 05/09/18 10:59 Dose: 200 mls/hr Dextrose/Sodium Chloride (D5-1/2ns -) 1,000 mls @ 60 mls/hr IV ASDIR [facility] Last Admin: 05/08/18 20:07 Dose: 60 mls/hr Lactobacillus Acidophilus (Bacid -) 1 tab PO BID [facility] Last Admin: 05/09/18 10:00 Dose: Not Given Levothyroxine Sodium (Synthroid Injection -) 37.5 mcg IVPUSH DAILY [facility] Last Admin: 05/09/18 10:54 Dose: 37.5 mcg Loperamide HCl (Imodium Liquid -) 1 mg PO Q8H PRN PRN Reason: DIARRHEA Loratadine (Claritin -) 10 mg PO DAILY [facility] Last Admin: 05/09/18 10:00 Dose: Not Given Melatonin (Melatonin) 2 mg PO HS [facility] Last Admin: 05/08/18 21:54 Dose: Not Given Metoprolol Succinate (Toprol Xl -) 50 mg PO BID [facility] Last Admin: 05/09/18 10:02 Dose: Not Given Mirtazapine (Remeron -) 7.5 mg PO [facility] Last Admin: 05/08/18 21:35 Dose: Not Given Multivitamins/Minerals/Vitamin C (Tab-A-Vit -) 1 tab PO DAILY [facility] Last Admin: 05/09/18 10:02 Dose: Not Given Nystatin/Triamcinolone Acetonide (Mycolog Ii Ointment -) 1 applic TP BID [facility] Last Admin: 05/08/18 21:38 Dose: Not Given Pantoprazole Sodium (Protonix Iv) 40 mg IVPUSH BID [facility] Last Admin: 05/09/18 10:50 Dose: 40 mg Sertraline HCl (Zoloft -) 50 mg PO DAILY [facility] Last Admin: 05/09/18 10:03 Dose: Not Given Sodium Chloride (Sodium Chloride Tablet -) 1 gm PO BID [facility] Last Admin: 05/09/18 10:02 Dose: Not Given Zinc Sulfate (Orazinc -) 220 mg PO DAILY [facility] Last Admin: 05/09/18 10:01 Dose: Not Given 53 year old woman with hx of Multple Sclerosis, Hypertension, Hyperlipidemia, Hypothyrodism, trigeminal neualgia, hx of hyponatremia/SIADH who presented with low serum Na as an outpatient and admitted with acute worsening of serum Na. #Acute on Chronic hyponatremia likely due to SIADH #Multiple Sclerosis #Anemia #Hypertension #Small pleural effusion #Hypothyroidism Serum na is improved and stable continue fluid restriction and salt tabs if able to swallow trend serum Na daily continue abx as per ID Neurology follow up Thank you Tyshawn Doe DO
--- NOTE | 2018-05-09 12:37 | PN ---
Progress Note (short form) - Note Progress Note: Sleepy but easily arousable. Mother and swallow pathologist at the bedside. AC Mode of vent, 35% FiO2. Low grade temp. Intake & Output 05/06/18 05/07/18 05/08/18 05/09/18 23:59 23:59 23:59 23:59 Intake Total 250 385 395 3880 Output Total 900 1500 150 Balance -650 -6808 463 5272 Last Vital Signs Temp Pulse Resp BP Pulse Ox 99.7 F H 102 H 19 140/66 98 05/09/18 08:55 05/09/18 08:55 05/09/18 10:05 05/09/18 08:55 05/08/18 21:00 Active Medications Acetaminophen (Tylenol -) 650 mg PO Q6H PRN PRN Reason: FEVER Albuterol/Ipratropium (Duoneb -) 1 amp NEB RQID [facility] Last Admin: 05/09/18 11:45 Dose: 1 amp Ascorbic Acid (Vitamin C -) 500 mg PO DAILY [facility] Last Admin: 05/09/18 10:03 Dose: Not Given Bacitracin (Bacitracin -) 1 applic TP BID [facility] Last Admin: 05/08/18 21:37 Dose: Not Given Carbamazepine (Tegretol -) 100 mg PO TID [facility] Last Admin: 05/09/18 07:21 Dose: Not Given Clonazepam (Klonopin -) 1 mg PO HS PRN PRN Reason: INSOMNIA Last Admin: 05/08/18 21:48 Dose: 1 mg Collagenase (Santyl -) 1 applic TP DAILY [facility]; Protocol Last Admin: 05/08/18 11:25 Dose: Not Given Cyanocobalamin (Vitamin B12 -) 1,000 mcg PO DAILY [facility] Last Admin: 05/09/18 10:02 Dose: Not Given Ferrous Sulfate (Feosol -) 325 mg PO DAILY [facility] Last Admin: 05/09/18 10:01 Dose: Not Given Folic Acid (Folic Acid -) 1 mg PO DAILY [facility] Last Admin: 05/09/18 10:01 Dose: Not Given Hydralazine HCl (Apresoline -) 50 mg PO TID [facility] Last Admin: 05/09/18 07:21 Dose: Not Given Levofloxacin (Levaquin 500 Mg Premixed Ivpb -) 500 mg in 100 mls @ 100 mls/hr IVPB DAILY [facility]; Protocol Last Admin: 05/09/18 12:05 Dose: 100 mls/hr Vancomycin HCl (Vancomycin (Pre-Docked)) 1,000 mg in 250 mls @ 166.667 mls/hr IVPB Q12H [facility]; Protocol Last Admin: 05/09/18 02:29 Dose: 166.667 mls/hr Piperacillin Sod/Tazobactam (Sod 4.5 gm/ Dextrose) 100 mls @ 200 mls/hr IVPB Q8H-IV [facility]; Protocol Last Admin: 05/09/18 10:59 Dose: 200 mls/hr Dextrose/Sodium Chloride (D5-1/2ns -) 1,000 mls @ 60 mls/hr IV [facility] Last Admin: 05/08/18 20:07 Dose: 60 mls/hr Lactobacillus Acidophilus (Bacid -) 1 tab PO BID [facility] Last Admin: 05/09/18 10:00 Dose: Not Given Levothyroxine Sodium (Synthroid Injection -) 37.5 mcg IVPUSH DAILY [facility] Last Admin: 05/09/18 10:54 Dose: 37.5 mcg Loperamide HCl (Imodium Liquid -) 1 mg PO Q8H PRN PRN Reason: DIARRHEA Loratadine (Claritin -) 10 mg PO DAILY [facility] Last Admin: 05/09/18 10:00 Dose: Not Given Magnesium Sulfate (Magnesium Sulfate) 1 gm IVPB ONCE ONE Stop: 05/09/18 13:01 Melatonin (Melatonin) 2 mg PO HS [facility] Last Admin: 05/08/18 21:54 Dose: Not Given Metoprolol Succinate (Toprol Xl -) 50 mg PO BID [facility] Last Admin: 05/09/18 10:02 Dose: Not Given Mirtazapine (Remeron -) 7.5 mg PO HS [facility] Last Admin: 05/08/18 21:35 Dose: Not Given Multivitamins/Minerals/Vitamin C (Tab-A-Vit -) 1 tab PO DAILY [facility] Last Admin: 05/09/18 10:02 Dose: Not Given Nystatin/Triamcinolone Acetonide (Mycolog Ii Ointment -) 1 applic TP BID [facility] Last Admin: 05/08/18 21:38 Dose: Not Given Pantoprazole Sodium (Protonix Iv) 40 mg IVPUSH BID [facility] Last Admin: 05/09/18 10:50 Dose: 40 mg Potassium Phos/Sodium Phos (Phos-Nak Packet -) 1 packet PO DAILY [facility] Sertraline HCl (Zoloft -) 50 mg PO DAILY [facility] Last Admin: 05/09/18 10:03 Dose: Not Given Sodium Chloride (Sodium Chloride Tablet -) 1 gm PO BID [facility] Last Admin: 05/09/18 10:02 Dose: Not Given Zinc Sulfate (Orazinc -) 220 mg PO DAILY [facility] Last Admin: 05/09/18 10:01 Dose: Not Given GENERAL: Sleepy but arousable, NAD HEAD: Normal with no signs of trauma. EYES: Pupils equal, round and reactive to light, sclera anicteric, conjunctiva clear. ENT: Dry mucous membranes with oral thrush NECK: (-) JVD, (+) Trach intact LUNGS: Bilateral scattered rhonchi. Mechanically ventilated HEART: Regular rate and rhythm, normal S1 and S2 without murmur, rub or gallop. ABDOMEN: Soft, nontender, not distended, normoactive bowel sounds, no guarding, no rebound, no masses. MUSCULOSKELETAL: No CVA tenderness. EXTREMITIES: 2+ pulses, warm, well-perfused. No calf tenderness. Trace pitting edema NEUROLOGICAL: paraplegic SKIN: (+) Stage III sacral ulcer, with multiple pressure injuries in the sacral and coccyx area. Laboratory Results - last 24 hr 05/09/18 05/09/18 05/09/18 07:35 07:35 07:35 WBC 16.2 H RBC 3.19 L Hgb 10.0 L Hct 29.7 L MCV 93.2 MCH 31.3 MCHC 33.6 RDW 16.1 H Plt Count 135 MPV 8.0 D Sodium 132 L Potassium 3.3 L Chloride 95 L Carbon Dioxide 30 Anion Gap 7 L BUN 15 Creatinine 0.5 L Creat Clearance w eGFR > 60 Random Glucose 102 Calcium 9.4 Phosphorus 1.9 L Cancelled Magnesium 1.6 L Cancelled Total Bilirubin 0.7 AST 17 ALT 23 Alkaline Phosphatase 210 H Total Protein 6.5 Albumin 2.1 L ASSESSMENT/PLAN: AMS due to Severe Hyponatremia Toxic Metabolic Encephalopathy Functional Quadriplegia Multiple Sclerosis Trigeminal Neuralgia Acute on chronic respiratory failure HTN Hypothyroidism Depression Anxiety PRN Clonazepam at night PO as tolerated if cleared by S&S: Ok to deflate the cuff and use PMV Wean trials as tolerated Baclofen pump BD [place] ABX per ID Dr Fox
[2018-05-09] MEDS ORDERED: MAGNESIUM SULF 50% (8.12 MEQ/2 ML-1 GM VIAL) IVPB ONE (13:00)
--- NOTE | 2018-05-09 13:22 | PN ---
Progress Note, Physician Chief Complaint: patient has not been sleeping well in hospital about 2 hrs at night in morning lethargic ct head done no new infarct has not eaten in last two days bc of lethargy to get meds crushed in apple sauce junior faulkner at bedside d/w mom and patient about NG tube - Current Medication List Current Medications: Active Medications Acetaminophen (Tylenol -) 650 mg PO Q6H PRN PRN Reason: FEVER Albuterol/Ipratropium (Duoneb -) 1 amp NEB RQID [facility] Last Admin: 05/09/18 11:45 Dose: 1 amp Ascorbic Acid (Vitamin C -) 500 mg PO DAILY [facility] Last Admin: 05/09/18 10:03 Dose: Not Given Bacitracin (Bacitracin -) 1 applic TP BID [facility] Last Admin: 05/08/18 21:37 Dose: Not Given Carbamazepine (Tegretol -) 100 mg PO TID [facility] Last Admin: 05/09/18 07:21 Dose: Not Given Clonazepam (Klonopin -) 1 mg PO HS PRN PRN Reason: INSOMNIA Last Admin: 05/08/18 21:48 Dose: 1 mg Collagenase (Santyl -) 1 applic TP DAILY [facility]; Protocol Last Admin: 05/08/18 11:25 Dose: Not Given Cyanocobalamin (Vitamin B12 -) 1,000 mcg PO DAILY [facility] Last Admin: 05/09/18 10:02 Dose: Not Given Ferrous Sulfate (Feosol -) 325 mg PO DAILY [facility] Last Admin: 05/09/18 10:01 Dose: Not Given Folic Acid (Folic Acid -) 1 mg PO DAILY [facility] Last Admin: 05/09/18 10:01 Dose: Not Given Hydralazine HCl (Apresoline -) 50 mg PO TID [facility] Last Admin: 05/09/18 07:21 Dose: Not Given Levofloxacin (Levaquin 500 Mg Premixed Ivpb -) 500 mg in 100 mls @ 100 mls/hr IVPB DAILY [facility]; Protocol Last Admin: 05/09/18 12:05 Dose: 100 mls/hr Vancomycin HCl (Vancomycin (Pre-Docked)) 1,000 mg in 250 mls @ 166.667 mls/hr IVPB Q12H [facility]; Protocol Last Admin: 05/09/18 02:29 Dose: 166.667 mls/hr Piperacillin Sod/Tazobactam (Sod 4.5 gm/ Dextrose) 100 mls @ 200 mls/hr IVPB Q8H-IV [facility]; Protocol Last Admin: 05/09/18 10:59 Dose: 200 mls/hr Dextrose/Sodium Chloride (D5-1/2ns -) 1,000 mls @ 60 mls/hr IV ASDIR [facility] Last Admin: 05/08/18 20:07 Dose: 60 mls/hr Lactobacillus Acidophilus (Bacid -) 1 tab PO BID [facility] Last Admin: 05/09/18 10:00 Dose: Not Given Levothyroxine Sodium (Synthroid Injection -) 37.5 mcg IVPUSH DAILY [facility] Last Admin: 05/09/18 10:54 Dose: 37.5 mcg Loperamide HCl (Imodium Liquid -) 1 mg PO Q8H PRN PRN Reason: DIARRHEA Loratadine (Claritin -) 10 mg PO DAILY [facility] Last Admin: 05/09/18 10:00 Dose: Not Given Metoprolol Tartrate (Lopressor -) 50 mg PO BID [facility] Mirtazapine (Remeron -) 7.5 mg PO HS [facility] Last Admin: 05/08/18 21:35 Dose: Not Given Nystatin/Triamcinolone Acetonide (Mycolog Ii Ointment -) 1 applic TP BID [facility] Last Admin: 05/08/18 21:38 Dose: Not Given Pantoprazole Sodium (Protonix Iv) 40 mg IVPUSH BID [facility] Last Admin: 05/09/18 10:50 Dose: 40 mg Potassium Phos/Sodium Phos (Phos-Nak Packet -) 1 packet PO DAILY [facility] Sertraline HCl (Zoloft -) 50 mg PO DAILY [facility] Last Admin: 05/09/18 10:03 Dose: Not Given Sodium Chloride (Sodium Chloride Tablet -) 1 gm PO BID [facility] Last Admin: 05/09/18 10:02 Dose: Not Given Zinc Sulfate (Orazinc -) 220 mg PO DAILY [facility] Last Admin: 05/09/18 10:01 Dose: Not Given - Objective Vital Signs: Vital Signs Temperature 99.7 F H 05/09/18 08:55 Pulse Rate 102 H 05/09/18 08:55 Respiratory Rate 19 05/09/18 10:05 Blood Pressure 140/66 05/09/18 08:55 O2 Sat by Pulse Oximetry (%) 98 05/08/18 21:00 Constitutional: Yes: Calm, Thin Neck: Yes: Other (trach) Cardiovascular: Yes: Regular Rate and Rhythm, S1, S2 Respiratory: Yes: Mechanically Ventilated Gastrointestinal: Yes: Normal Bowel Sounds, Soft Genitourinary: Yes: Perera Present Edema: No Neurological: Yes: Pre-Existing Deficit Labs: CBC, BMP 05/09/18 07:35 05/09/18 07:35 Problem List - Problems (1) Hyponatremia Assessment/Plan: soidum now is 132 started on ivf bc not eating well Code(s): E87.1 - HYPO-OSMOLALITY AND HYPONATREMIA (2) Anemia Assessment/Plan: iron panel Code(s): D64.9 - ANEMIA, UNSPECIFIED (3) Hypothyroid Assessment/Plan: check tsh change to iv as cannot take oral synthroid till mental status improved synthoid 75mcg iv once mental status improves will switch back to synthroid 100mcg po daily Code(s): E03.9 - HYPOTHYROIDISM, UNSPECIFIED (4) Hyperkalemia Assessment/Plan: improved now hypokalemic Code(s): E87.5 - HYPERKALEMIA (5) Hx of multiple sclerosis Assessment/Plan: vent support appreiciate neurology note thiamine iv dvt ppx to gett palliatice team involved regarding advcne directives and regarding peg placement dara get IR to put temporary ng tube as patient not been getting nutriton in last few days bc of mental status changes Code(s): Z86.69 - PERSONAL HISTORY OF DIS OF THE NERVOUS SYS AND SENSE ORGANS (6) Electrolyte imbalance Assessment/Plan: potassium and phos and magnesium repleted Code(s): E87.8 - OTH DISORDERS OF ELECTROLYTE AND FLUID BALANCE, NEC (7) Functional quadriplegia secondary to MS Assessment/Plan: perera frequent turn positon dr jeffries- wound consult trial of paussy tenzin valve with junior faulkner dvt ppx pallitive care team Code(s): G35 - MULTIPLE SCLEROSIS; R53.2 - FUNCTIONAL QUADRIPLEGIA (8) Insomnia Assessment/Plan: in the hospital will give clonazzepam at night that what she takes at home and put her on the vent at night and in the morning till she is fully awake Code(s): G47.00 - INSOMNIA, UNSPECIFIED
--- NOTE | 2018-05-09 13:30 | PN ---
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 Progress Note: Selected Entries 05/06/18 05/06/18 05/07/18 09:16 20:00 02:00 Breakfast Lunch NPO Supper 25% Temperature 97.9 F 05/07/18 05/07/18 05/07/18 06:00 10:00 12:18 Breakfast 25% Lunch Supper Temperature 97.6 F 97.5 F L 05/07/18 05/07/18 05/07/18 14:00 16:00 18:00 Breakfast Lunch Supper Temperature 97.4 F L 97.7 F 96.7 F L 05/07/18 05/07/18 05/08/18 18:10 22:10 02:00 Breakfast Lunch Supper Temperature 97.9 F 98.3 F 97.9 F 05/08/18 05/08/18 05/08/18 06:00 10:00 11:32 Breakfast 25% Lunch Supper Temperature 100.2 F H 101.2 F H 05/08/18 05/08/18 05/08/18 14:00 14:35 18:00 Breakfast Lunch 0 Supper Temperature 100.8 F H 100.0 F H 05/08/18 05/09/18 05/09/18 20:12 00:00 07:26 Breakfast Lunch Supper Temperature 99.8 F H 98.8 F 98.2 F 05/09/18 05/09/18 08:55 11:09 Breakfast NPO Lunch Supper Temperature 99.7 F H Laboratory Tests 05/07/18 05/09/18 05:30 07:35 WBC 13.3 H 16.2 H Poor PO intake over last few days. Needed to be suctioned this am for inability to swallow. 3/3 CXR progressive R infiltrate. Pt was quite lethargic, medication related? CT head noted More alert today for me but still somewhat slow to respond and difficult to read her lips/non vocal secto vent/cuff inflation. Swallow re-assessed, is labored,delayed, seems to be untimely.Aspiration? Aspiration can not be r/o at bedside. Pt refusing most PO,however, and I believe pt will not accept enough nutrition by mouth at this time. Reviewed with PMD/Pulmonary consideration for NGT for nutrition/meds at this time. PEG was discussed, placing NGT by IR and converting to PEG. Consider-addressing pt's wishes as well as code status with pt when she is at functional cognitive capacity. PMV assessment pending Seen by Palliative care March 2018.
[2018-05-09] MEDS: METOPROLOL TARTRATE 50 MG TABLET (FP) PO SCH ×2 (14:43→22:36)
[2018-05-09] MEDS: NYSTATIN/TRIAMCINOLONE TOPICAL OINTMENT 15 GM TUBE TP SCH ×2 (14:47→22:23)
[2018-05-09] MEDS: BACITRACIN 15 GM TUBE TOPICAL OINTMENT TP SCH ×2 (14:55→22:24)
[2018-05-09] MEDS: COLLAGENASE CLOSTRIDIUM HIST. 30 GRAMS TUBE TP SCH (15:00)
--- NOTE | 2018-05-09 15:25 | PN ---
Progress Note (short form) - Note Progress Note: fevers down she is more alert lots of secretions trach to vent Vital Signs Period Temp Pulse Resp BP Sys/Morillo Pulse Ox Last 24 Hr 98.2 F-100.0 F 92-106 12-24 135-158/66-87 98 cor-rrr lungs crackles right base abd soft,nt ext no edema CBC, BMP 05/09/18 07:35 05/09/18 07:35 Microbiology 05/06/18 18:30 Sputum - Endotrachea Suction/Ventilator Gram Stain - Final 05/06/18 18:30 Sputum - Endotrachea Suction/Ventilator Sputum Culture - Preliminary Non Lactose Fermenting Gnb Non Lactose Fermenting Gnb#2 Presumptive Mrsa (Pbp2a Pos) 05/06/18 11:20 Blood - Peripheral Venous Blood Culture - Preliminary NO GROWTH OBTAINED AFTER 72 HOURS, INCUBATION TO CONTINUE FOR 2 DAYS. 05/06/18 11:38 Blood - Peripheral Venous Blood Culture - Preliminary NO GROWTH OBTAINED AFTER 72 HOURS, INCUBATION TO CONTINUE FOR 2 DAYS. 05/08/18 19:00 Urine - Urine Raza Legionella Antigen - Final 05/08/18 19:00 Urine - Urine Raza Streptococcus pneumoniae Antigen (M - Final 05/03/18 17:40 Blood - Peripheral Venous Blood Culture - Final NO GROWTH AFTER 5 DAYS INCUBATION 05/03/18 17:40 Blood - Peripheral Venous Blood Culture - Final NO GROWTH AFTER 5 DAYS INCUBATION 05/06/18 14:30 Urine - Urine Raza Urine Culture - Final Contaminated: Please Repeat 05/03/18 17:40 Urine - Urine Clean Catch Urine Culture - Final Contaminated: Please Repeat cxray increased RLL infiltrate imp/reccd fever vancomycin and zosyn day #1 f/u cultures clinically improved respiratory failure chronic MS with functional quadraplegia Problem List - Problems (1) Leukocytosis Code(s): D72.829 - ELEVATED WHITE BLOOD CELL COUNT, UNSPECIFIED (2) Hyponatremia Code(s): E87.1 - HYPO-OSMOLALITY AND HYPONATREMIA (3) Chronic respiratory failure Code(s): J96.10 - CHRONIC RESPIRATORY FAILURE, UNSP W HYPOXIA OR HYPERCAPNIA (4) Functional 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
--- NOTE | 2018-05-09 15:48 | CONSULT ---
Passy-Shiro Valve Eval - Assessment Prior to PMV Placement Patient and/or family educated re PMV: Yes Mental Status: Awake, Alert, Attempting to Communicate O2 Sat by Pulse Oximetry (%): 98 Secretions: Moderate Amount Patient on Ventilator: Yes Patient on Trach Collar: No Suctioned: Yes Cuff Status: Inflated Passy-Shiro Valve in Place - Speech Characteristics Able to Phonate with PMV in place: No Voice Loudness: Hypophonia Voice Phonatory-based Quality: Vocal Wetness Speech Pattern: Impaired Speech Clarity: < 25% Articulation: Imprecise Voice, Other Observations: Inadequate Breath Support - Assessment with PMV in Place O2 Sat by Pulse Oximetry (%): 96 Change in Mental Status with PMV in Place: No Able to Manage Secretions: No Length of time with PMV in place: 10 Additional comments: Pt was Aphonic with no audible phonation, with cuff fully deflated and PMV in place. Pt's mother felt that was because her "mouth was dry" and gave her soda via staw. A responsive cough and vocal wetness was triggered, c/w aspiration. Pt suctioned to clear. - Recommendations Recommendations: Other (To reassess as pt becomes stronger. Pt was passive and did not seem to care that she could not speak.)
--- NOTE | 2018-05-09 16:16 | PN ---
Progress Note (short form) - Note Progress Note: NEUROLOGY PROGRESS NOTE: Events reviewed and discussed with staff. Mother and friend at bedside. Consults read and appreciated. Pt now moved to med surg floor, broad-spectrum abx with Levaquin, Zoysn, Vanco. Pos MRSA nares. Currently on D51/2 NS, NaCl tablets and fluid restriction 800cc. Now with intermittent fevers over weekend and continued poor appetite. Attempted PMV, but unable to speak. Mother reports perera cath was not in completely and pt recathed with large amount of fluid. WBC 13.0-> 16.2 Na 127-> 132 UC x 2 contaminated GODFREY: -Lhermitte's. On mechanical vent. Perera appears dark. NEURO EXAM: Dry tongue Ox [facility]. May,. TRUMP. Recognizes me. Severely reduced rapid tongue mvmt's. Decreased Gag Tetraplegic. Areflexic. Reduced pinch in all fours. Impression: Advanced MS Toxic-Metabolic Encephalopathy (Hyponatremia, Infection) Suggest: Continue Broad spectrum Abx, pending repeat blood cx Maintain perera cares and patency, wound cares Slow correction of hyponatremia Pt may require parenteral nutrition Thank you very much, Rom Conroy MD
[2018-05-09] MEDS: DEXTROSE 5%-0.45% SALINE 1,000 ML IV SCH ×2 (22:22→22:35)
[2018-05-09] MEDS: MULTIVIT-MINERALS ORAL LIQUID PO SCH (22:35)
[2018-05-09] MEDS: MIRTAZAPINE 15 MG TABLET (FP) PO SCH (22:36)
[2018-05-10] MEDS ORDERED: PIPERACILLIN/TAZOBACTAM 4.5 GM VIAL IVPB ONE ×4 (01:23→23:40)
[2018-05-10] MEDS ORDERED: DEXTROSE 5%-WATER 100 ML IVPB ONE ×4 (01:23→23:41)
[2018-05-10] MEDS: VANCOMYCIN 1 GRAM (PRE-DOCKED) 1,000 MG/250 ML BAG IVPB SCH ×2 (02:24→15:05)
[2018-05-10] MEDS: PIPERACILLIN/TAZOB 4.5 GM 4.5 GM in DEXTROSE 5%-WATER 100 ML IVPB SCH ×3 (02:24→18:15)
[2018-05-10] MEDS ORDERED: PT OWN MED DRAWER 7, Y5N ONE ×4 (06:32→14:01)
[2018-05-10] MEDS: carBAMazepine 100 MG TAB.CHEW PO SCH ×3 (07:03→22:39)
[2018-05-10] MEDS: hydrALAZINE HCL 50 MG TABLET (FP) PO SCH ×3 (07:03→22:52)
[2018-05-10] MEDS: ALBUTEROL SO4 2.5/IPRATROPIUM 0.5 INH SOL 3 ML VIAL.NEB. NEB SCH ×3 (08:05→15:23)
[2018-05-10 08:32] LABS: ANION GAP 8 MMOL/L (8-16); BLOOD UREA NITROGEN 13 mg/dL (7-18); CHLORIDE 97 mmol/L (98-107); CO2 29 mmol/L (21-32); CREATININE 0.4 mg/dL (0.55-1.3); GLUCOSE,RANDOM 97 mg/dL (74-106); MAGNESIUM 1.9 mg/dL (1.8-2.4); POTASSIUM 3.1 mmol/L (3.5-5.1); SODIUM 135 mmol/L (136-145)
--- NOTE | 2018-05-10 09:11 | PN ---
Progress Note, Physician History of Present Illness: feels better this am - Current Medication List Current Medications: Active Medications Acetaminophen (Tylenol -) 650 mg PO Q6H PRN PRN Reason: FEVER Albuterol/Ipratropium (Duoneb -) 1 amp NEB RQID [facility] Last Admin: 05/10/18 08:05 Dose: 1 amp Ascorbic Acid (Vitamin C -) 500 mg PO DAILY [facility] Last Admin: 05/09/18 10:03 Dose: Not Given Bacitracin (Bacitracin -) 1 applic TP BID [facility] Last Admin: 05/09/18 22:24 Dose: 1 applic Carbamazepine (Tegretol -) 100 mg PO TID [facility] Last Admin: 05/10/18 07:03 Dose: 100 mg Clonazepam (Klonopin -) 1 mg PO HS PRN PRN Reason: INSOMNIA Last Admin: 05/08/18 21:48 Dose: 1 mg Collagenase (Santyl -) 1 applic TP DAILY [facility]; Protocol Last Admin: 05/09/18 15:00 Dose: 1 applic Cyanocobalamin (Vitamin B12 -) 1,000 mcg PO DAILY [facility] Last Admin: 05/09/18 10:02 Dose: Not Given Ferrous Sulfate (Feosol -) 325 mg PO DAILY [facility] Last Admin: 05/09/18 10:01 Dose: Not Given Folic Acid (Folic Acid -) 1 mg PO DAILY [facility] Last Admin: 05/09/18 10:01 Dose: Not Given Hydralazine HCl (Apresoline -) 50 mg PO TID [facility] Last Admin: 05/10/18 07:03 Dose: 50 mg Vancomycin HCl (Vancomycin (Pre-Docked)) 1,000 mg in 250 mls @ 166.667 mls/hr IVPB Q12H [facility]; Protocol Last Admin: 05/10/18 02:24 Dose: 166.667 mls/hr Piperacillin Sod/Tazobactam (Sod 4.5 gm/ Dextrose) 100 mls @ 200 mls/hr IVPB Q8H-IV [facility]; Protocol Last Admin: 05/10/18 02:24 Dose: 200 mls/hr Dextrose/Sodium Chloride (D5-1/2ns -) 1,000 mls @ 60 mls/hr IV ASDIR [facility] Last Admin: 05/09/18 22:35 Dose: Not Given Lactobacillus Acidophilus (Bacid -) 1 tab PO BID [facility] Last Admin: 05/09/18 22:35 Dose: Not Given Levothyroxine Sodium (Synthroid Injection -) 37.5 mcg IVPUSH DAILY [facility] Last Admin: 05/09/18 10:54 Dose: 37.5 mcg Loperamide HCl (Imodium Liquid -) 1 mg PO Q8H PRN PRN Reason: DIARRHEA Loratadine (Claritin -) 10 mg PO DAILY [facility] Last Admin: 05/09/18 10:00 Dose: Not Given Metoprolol Tartrate (Lopressor -) 50 mg PO BID [facility] Last Admin: 05/09/18 22:36 Dose: Not Given Mirtazapine (Remeron -) 7.5 mg PO HS [facility] Last Admin: 05/09/18 22:36 Dose: Not Given Nystatin/Triamcinolone Acetonide (Mycolog Ii Ointment -) 1 applic TP BID [facility] Last Admin: 05/09/18 22:23 Dose: 1 applic Pantoprazole Sodium (Protonix Iv) 40 mg IVPUSH BID [facility] Last Admin: 05/09/18 22:22 Dose: 40 mg Potassium Phos/Sodium Phos (Phos-Nak Packet -) 1 packet PO DAILY [facility] Sertraline HCl (Zoloft -) 50 mg PO DAILY [facility] Last Admin: 05/09/18 10:03 Dose: Not Given Sodium Chloride (Sodium Chloride Tablet -) 1 gm PO BID [facility] Last Admin: 05/09/18 22:36 Dose: Not Given Zinc Sulfate (Orazinc -) 220 mg PO DAILY [facility] Last Admin: 05/09/18 10:01 Dose: Not Given - Objective Vital Signs: Vital Signs Temperature 99.3 F 05/10/18 07:00 Pulse Rate 93 H 05/10/18 07:00 Respiratory Rate 12 05/10/18 08:11 Blood Pressure 152/86 05/10/18 07:00 O2 Sat by Pulse Oximetry (%) 97 05/09/18 21:00 Cardiovascular: Yes: S1, S2 Respiratory: Yes: Rhonchi Gastrointestinal: Yes: Normal Bowel Sounds, Soft Labs: CBC, BMP 05/09/18 07:35 05/10/18 07:00 Problem List - Problems (1) Hyponatremia Code(s): E87.1 - HYPO-OSMOLALITY AND HYPONATREMIA (2) Anemia Code(s): D64.9 - ANEMIA, UNSPECIFIED Qualifiers: Other causes of anemia: other cause, not classified (3) Chronic respiratory failure Code(s): J96.10 - CHRONIC RESPIRATORY FAILURE, UNSP W HYPOXIA OR HYPERCAPNIA (4) Functional quadriplegia Code(s): R53.2 - FUNCTIONAL QUADRIPLEGIA (5) Hypothyroid Code(s): E03.9 - HYPOTHYROIDISM, UNSPECIFIED (6) Multiple sclerosis Code(s): G35 - MULTIPLE SCLEROSIS (7) Decubital ulcer Code(s): L89.90 - PRESSURE ULCER OF UNSPECIFIED SITE, UNSPECIFIED STAGE Qualifiers: Pressure injury location: unspecified location Pressure injury stage: unspecified pressure injury stage Qualified Code(s): L89.90 - Pressure ulcer of unspecified site, unspecified stage (8) Abnormal LFTs Code(s): R94.5 - ABNORMAL RESULTS OF LIVER FUNCTION STUDIES Assessment/Plan - Problems (1) Hyponatremia Assessment/Plan: soidum now is 132 started on ivf bc not eating well Code(s): E87.1 - HYPO-OSMOLALITY AND HYPONATREMIA (2) Anemia Assessment/Plan: iron panel Code(s): D64.9 - ANEMIA, UNSPECIFIED (3) Hypothyroid Assessment/Plan: check tsh change to iv as cannot take oral synthroid synthoid 75mcg iv once mental status improves will switch back to synthroid 100mcg po daily Code(s): E03.9 - HYPOTHYROIDISM, UNSPECIFIED (4) Respiratory Failure Assessment/Plan: Pneumonia cxr nebs pulm suctioning abx per ID (5) Hx of multiple sclerosis Assessment/Plan: vent support appreciate neurology note thiamine iv dvt ppx to get palliative team involved regarding advcne directives and regarding peg placement will get IR to put temporary ng tube as patient not been getting nutriton in last few days bc of mental status changes Code(s): Z86.69 - PERSONAL HISTORY OF DIS OF THE NERVOUS SYS AND SENSE ORGANS (6) Electrolyte imbalance Assessment/Plan: potassium and phos and magnesium repleted Code(s): E87.8 - OTH DISORDERS OF ELECTROLYTE AND FLUID BALANCE, NEC (7) Functional quadriplegia secondary to MS Assessment/Plan: perera frequent turn position dr jeffries- wound consult trial of paussy tenzin valve with junior faulkner dvt ppx palliative care team Code(s): G35 - MULTIPLE SCLEROSIS; R53.2 - FUNCTIONAL QUADRIPLEGIA (8) Insomnia Assessment/Plan: in the hospital will give clonazepam at night that what she takes at home and put her on the vent at night and in the morning till she is fully awake Code(s): G47.00 - INSOMNIA, UNSPECIFIED
--- NOTE | 2018-05-10 09:24 | RAPID ---
Physical Examination Vital Signs: Vital Signs Temperature 99.3 F 05/10/18 07:00 Pulse Rate 93 H 05/10/18 07:00 Respiratory Rate 12 05/10/18 08:11 Blood Pressure 152/86 05/10/18 07:00 O2 Sat by Pulse Oximetry (%) 97 05/09/18 21:00 Labs: CBC, BMP 05/09/18 07:35 05/10/18 07:00 Rapid Response - Rapid Response Assessment: rapid response called patient was desturating and turning blue- suction was not working vitals: BP 158/75 HR 99 spo2 96 percent lung exam distant breath sounds plan: suction with respiratory STAT CXR
--- NOTE | 2018-05-10 11:20 | PN ---
Progress Note (short form) - Note Progress Note: Sleepy but easily arousable. Mother at the bedside. Reports that Geetha ate her entire serving of Schurz this AM. She did not observe increase cough or choking. AC Mode of vent, 35% FiO2. Intake & Output 05/07/18 05/08/18 05/09/18 05/10/18 23:59 23:59 23:59 23:59 Intake Total 582 222 6249 950 Output Total 7768 484 1204 950 Balance -1080 550 850 0 Last Vital Signs Temp Pulse Resp BP Pulse Ox 99.3 F 93 H 12 152/86 97 05/10/18 07:00 05/10/18 07:00 05/10/18 08:11 05/10/18 07:00 05/09/18 21:00 Active Medications Acetaminophen (Tylenol -) 650 mg PO Q6H PRN PRN Reason: FEVER Albuterol/Ipratropium (Duoneb -) 1 amp NEB RQID [facility] Last Admin: 05/10/18 08:05 Dose: 1 amp Ascorbic Acid (Vitamin C -) 500 mg PO DAILY [facility] Last Admin: 05/09/18 10:03 Dose: Not Given Bacitracin (Bacitracin -) 1 applic TP BID [facility] Last Admin: 05/09/18 22:24 Dose: 1 applic Carbamazepine (Tegretol -) 100 mg PO TID [facility] Last Admin: 05/10/18 07:03 Dose: 100 mg Clonazepam (Klonopin -) 1 mg PO HS PRN PRN Reason: INSOMNIA Last Admin: 05/08/18 21:48 Dose: 1 mg Collagenase (Santyl -) 1 applic TP DAILY [facility]; Protocol Last Admin: 05/09/18 15:00 Dose: 1 applic Cyanocobalamin (Vitamin B12 -) 1,000 mcg PO DAILY [facility] Last Admin: 05/09/18 10:02 Dose: Not Given Ferrous Sulfate (Feosol -) 325 mg PO DAILY [facility] Last Admin: 05/09/18 10:01 Dose: Not Given Folic Acid (Folic Acid -) 1 mg PO DAILY [facility] Last Admin: 05/09/18 10:01 Dose: Not Given Hydralazine HCl (Apresoline -) 50 mg PO TID [facility] Last Admin: 05/10/18 07:03 Dose: 50 mg Vancomycin HCl (Vancomycin (Pre-Docked)) 1,000 mg in 250 mls @ 166.667 mls/hr IVPB Q12H [facility]; Protocol Last Admin: 05/10/18 02:24 Dose: 166.667 mls/hr Piperacillin Sod/Tazobactam (Sod 4.5 gm/ Dextrose) 100 mls @ 200 mls/hr IVPB Q8H-IV [facility]; Protocol Last Admin: 05/10/18 02:24 Dose: 200 mls/hr Dextrose/Sodium Chloride (D5-1/2ns -) 1,000 mls @ 60 mls/hr IV ASDIR [facility] Last Admin: 05/09/18 22:35 Dose: Not Given Lactobacillus Acidophilus (Bacid -) 1 tab PO BID [facility] Last Admin: 05/09/18 22:35 Dose: Not Given Levothyroxine Sodium (Synthroid Injection -) 37.5 mcg IVPUSH DAILY [facility] Last Admin: 05/09/18 10:54 Dose: 37.5 mcg Loperamide HCl (Imodium Liquid -) 1 mg PO Q8H PRN PRN Reason: DIARRHEA Loratadine (Claritin -) 10 mg PO DAILY [facility] Last Admin: 05/09/18 10:00 Dose: Not Given Metoprolol Tartrate (Lopressor -) 50 mg PO BID [facility] Last Admin: 05/09/18 22:36 Dose: Not Given Mirtazapine (Remeron -) 7.5 mg PO HS [facility] Last Admin: 05/09/18 22:36 Dose: Not Given Nystatin/Triamcinolone Acetonide (Mycolog Ii Ointment -) 1 applic TP BID [facility] Last Admin: 05/09/18 22:23 Dose: 1 applic Pantoprazole Sodium (Protonix Iv) 40 mg IVPUSH BID [facility] Last Admin: 05/09/18 22:22 Dose: 40 mg Potassium Phos/Sodium Phos (Phos-Nak Packet -) 1 packet PO DAILY [facility] Sertraline HCl (Zoloft -) 50 mg PO DAILY [facility] Last Admin: 05/09/18 10:03 Dose: Not Given Sodium Chloride (Sodium Chloride Tablet -) 1 gm PO BID [facility] Last Admin: 05/09/18 22:36 Dose: Not Given Zinc Sulfate (Orazinc -) 220 mg PO DAILY [facility] Last Admin: 05/09/18 10:01 Dose: Not Given GENERAL: Sleepy but arousable, NAD HEAD: Normal with no signs of trauma. EYES: Pupils equal, round and reactive to light, sclera anicteric, conjunctiva clear. ENT: Dry mucous membranes with oral thrush NECK: (-) JVD, (+) Trach intact LUNGS: Bilateral scattered rhonchi. Mechanically ventilated HEART: Regular rate and rhythm, normal S1 and S2 without murmur, rub or gallop. ABDOMEN: Soft, nontender, not distended, normoactive bowel sounds, no guarding, no rebound, no masses. MUSCULOSKELETAL: No CVA tenderness. EXTREMITIES: 2+ pulses, warm, well-perfused. No calf tenderness. Trace pitting edema NEUROLOGICAL: paraplegic SKIN: (+) Stage III sacral ulcer, with multiple pressure injuries in the sacral and coccyx area. Laboratory Results - last 24 hr 05/09/18 05/10/18 07:35 07:00 Sodium 135 L Potassium 3.1 L Chloride 97 L Carbon Dioxide 29 Anion Gap 8 BUN 13 Creatinine 0.4 L Creat Clearance w eGFR > 60 Random Glucose 97 Calcium 9.0 Phosphorus 1.9 L 3.0 Magnesium 1.6 L 1.9 ASSESSMENT/PLAN: Suspected aspiration pneumonitis AMS due to Severe Hyponatremia Toxic Metabolic Encephalopathy Functional Quadriplegia Multiple Sclerosis Trigeminal Neuralgia Acute on chronic respiratory failure HTN Hypothyroidism Depression Anxiety NGT insertion by IR NPO Wean trials as tolerated Baclofen pump BD [place] ABX per ID Dr Fox
[2018-05-10] MEDS: LEVOTHYROXINE SODIUM 100 MCG VIAL IVPUSH SCH (11:23)
[2018-05-10] MEDS: PANTOPRAZOLE SODIUM 40 MG VIAL IVPUSH SCH ×2 (11:23→22:38)
[2018-05-10] MEDS: NYSTATIN/TRIAMCINOLONE TOPICAL OINTMENT 15 GM TUBE TP SCH ×2 (11:31→22:53)
[2018-05-10] MEDS: LACTOBACILLUS ACIDOPHILUS 1 TABLET PO SCH ×2 (11:32→22:52)
[2018-05-10] MEDS: FERROUS SO4 325 MG TABLET (FP) PO SCH (11:32)
[2018-05-10] MEDS: LORATADINE 10 MG TABLET PO SCH (11:32)
[2018-05-10] MEDS: MULTIVIT-MINERALS ORAL LIQUID PO SCH (11:32)
[2018-05-10] MEDS: BACITRACIN 15 GM TUBE TOPICAL OINTMENT TP SCH ×2 (11:32→22:54)
[2018-05-10] MEDS: FOLIC ACID 1 MG TABLET (FP) PO SCH (11:33)
[2018-05-10] MEDS: SODIUM CHLORIDE 1 GM TABLET PO SCH ×2 (11:34→22:54)
[2018-05-10] MEDS: ZINC SULFATE 220 MG CAPSULE (FP) PO SCH (11:34)
[2018-05-10] MEDS: NAPH,MB-DB/K PH,MBDB POWDER PACKET PO SCH (11:34)
[2018-05-10] MEDS: METOPROLOL TARTRATE 50 MG TABLET (FP) PO SCH ×3 (11:34→22:53)
[2018-05-10] MEDS: ASCORBIC ACID 500 MG TABLET (FP) PO SCH (11:35)
[2018-05-10] MEDS: CYANOCOBALAMIN 1,000 MCG TABLET (FP) PO SCH (11:35)
[2018-05-10] MEDS: SERTRALINE HCL 50 MG TABLET (FP) PO SCH (11:36)
--- NOTE | 2018-05-10 11:47 | PN ---
Progress Note (short form) - Note Progress Note: FU : Multiple Decubitii, at present patient condition following conditions Suspected aspiration pneumonitis AMS due to Severe Hyponatremia Toxic Metabolic Encephalopathy Functional Quadriplegia Multiple Sclerosis Trigeminal Neuralgia Acute on chronic respiratory failure HTN Hypothyroidism Depression Anxiety NGT insertion by IR NPO Wean trials as tolerated Baclofen pump BD TX ABX per ID Microbiology 05/08/18 19:00 Urine - Urine Raza Legionella Antigen - Final 05/08/18 19:00 Urine - Urine Raza Streptococcus pneumoniae Antigen (M - Final 05/06/18 18:30 Sputum - Endotrachea Suction/Ventilator Gram Stain - Final 05/08/18 17:00 Blood - Peripheral Venous Blood Culture - Preliminary NO GROWTH OBTAINED AFTER 24 HOURS, INCUBATION TO CONTINUE FOR 4 DAYS. 05/06/18 18:30 Sputum - Endotrachea Suction/Ventilator Sputum Culture - Preliminary Non Lactose Fermenting Gnb Non Lactose Fermenting Gnb#2 Presumptive Mrsa (Pbp2a Pos) Laboratory Tests 05/06/18 05/09/18 05:30 07:35 Hgb 10.0 L Hct 29.7 L Neutrophils % 91.2 H Neutrophils % (Manual) 90.1 H Platelet Estimate Decreased Plan Delay Wound debridement till Respiration , Oxygenation improved
--- NOTE | 2018-05-10 13:14 | PN ---
Progress Note, PRESENTATION DESIGNER - Note Progress Note: Selected Entries 05/09/18 05/10/18 05/10/18 14:35 02:00 07:00 Breakfast Diet Tolerated Lunch NPO Temperature 98.6 F 99.3 F 05/10/18 05/10/18 10:58 11:14 Breakfast 50% Diet Tolerated Fair Lunch Temperature 98.5 F Laboratory Tests 05/07/18 05/08/18 05/09/18 05:30 09:20 07:35 WBC 13.3 H 18.5 H 16.2 H Pt without voicing during PMV assessment and with signs of aspiration on water. NGT suggested due to suspected aspiration and insufficient Po acceptance. CXR- Worsening with progressive fluid with R infiltrate/clear left lung. + sputum culture RR response with pt desaturating and using accessory muscles to breathe, per nursing. Mucous plug? Her mother fed her " entire farina and drank a little" after RR, with mother reporting that she ate "well." Pt has been sleepy today. I discussed with pt's mother if she knew what Geetha would want at this point. She said "Geetha's sisters know everything" Pt's mother agreed to NPO/NGT through IR. Consider family meeting regarding pt's wishes. Palliative care consult.
--- NOTE | 2018-05-10 16:19 | PN ---
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 this am for hypoxia and suspected mucus plug Vital Signs Temperature 100.0 F H 05/10/18 14:57 Pulse Rate 70 05/10/18 14:57 Respiratory Rate 12 05/10/18 15:46 Blood Pressure 112/66 05/10/18 14:57 O2 Sat by Pulse Oximetry (%) 97 05/09/18 21:00 Intake & Output 05/07/18 05/08/18 05/09/18 05/10/18 23:59 23:59 23:59 23:59 Intake Total 444 738 7247 1300 Output Total 9428 083 5535 1150 Balance -1080 550 850 150 NAD on vent via trach neck supple RRR Dec BS, no rales soft NT/ND No edema in LE CBC, BMP 05/09/18 07:35 05/10/18 07:00 Current Medications Acetaminophen (Tylenol -) 650 mg PO Q6H PRN PRN Reason: FEVER Albuterol/Ipratropium (Duoneb -) 1 amp NEB RQID [facility] Last Admin: 05/10/18 15:23 Dose: 1 amp Ascorbic Acid (Vitamin C -) 500 mg PO DAILY [facility] Last Admin: 05/10/18 11:35 Dose: Not Given Bacitracin (Bacitracin -) 1 applic TP BID [facility] Last Admin: 05/10/18 11:32 Dose: 1 applic Carbamazepine (Tegretol -) 100 mg PO TID [facility] Last Admin: 05/10/18 14:53 Dose: 100 mg Clonazepam (Klonopin -) 1 mg PO HS PRN PRN Reason: INSOMNIA Last Admin: 05/08/18 21:48 Dose: 1 mg Collagenase (Santyl -) 1 applic TP DAILY [facility]; Protocol Last Admin: 05/09/18 15:00 Dose: 1 applic Cyanocobalamin (Vitamin B12 -) 1,000 mcg PO DAILY [facility] Last Admin: 05/10/18 11:35 Dose: Not Given Ferrous Sulfate (Feosol -) 325 mg PO DAILY [facility] Last Admin: 05/10/18 11:32 Dose: Not Given Folic Acid (Folic Acid -) 1 mg PO DAILY [facility] Last Admin: 05/10/18 11:33 Dose: Not Given Hydralazine HCl (Apresoline -) 50 mg PO TID [facility] Last Admin: 05/10/18 14:54 Dose: 50 mg Vancomycin HCl (Vancomycin (Pre-Docked)) 1,000 mg in 250 mls @ 166.667 mls/hr IVPB Q12H [facility]; Protocol Last Admin: 05/10/18 15:05 Dose: 166.667 mls/hr Piperacillin Sod/Tazobactam (Sod 4.5 gm/ Dextrose) 100 mls @ 200 mls/hr IVPB Q8H-IV [facility]; Protocol Last Admin: 05/10/18 11:24 Dose: 200 mls/hr Dextrose/Sodium Chloride (D5-1/2ns -) 1,000 mls @ 60 mls/hr IV ASDIR [facility] Last Admin: 05/09/18 22:35 Dose: Not Given Lactobacillus Acidophilus (Bacid -) 1 tab PO BID [facility] Last Admin: 05/10/18 11:32 Dose: Not Given Levothyroxine Sodium (Synthroid Injection -) 37.5 mcg IVPUSH DAILY [facility] Last Admin: 05/10/18 11:23 Dose: 37.5 mcg Loperamide HCl (Imodium Liquid -) 1 mg PO Q8H PRN PRN Reason: DIARRHEA Loratadine (Claritin -) 10 mg PO DAILY [facility] Last Admin: 05/10/18 11:32 Dose: Not Given Metoprolol Tartrate (Lopressor -) 50 mg PO BID [facility] Last Admin: 05/10/18 11:53 Dose: 50 mg Mirtazapine (Remeron -) 7.5 mg PO HS [facility] Last Admin: 05/09/18 22:36 Dose: Not Given Nystatin/Triamcinolone Acetonide (Mycolog Ii Ointment -) 1 applic TP BID [facility] Last Admin: 05/10/18 11:31 Dose: 1 applic Pantoprazole Sodium (Protonix Iv) 40 mg IVPUSH BID [facility] Last Admin: 05/10/18 11:23 Dose: 40 mg Potassium Phos/Sodium Phos (Phos-Nak Packet -) 1 packet PO DAILY [facility] Last Admin: 05/10/18 11:34 Dose: Not Given Sertraline HCl (Zoloft -) 50 mg PO DAILY [facility] Last Admin: 05/10/18 11:36 Dose: Not Given Sodium Chloride (Sodium Chloride Tablet -) 1 gm PO BID [facility] Last Admin: 05/10/18 11:34 Dose: Not Given Zinc Sulfate (Orazinc -) 220 mg PO DAILY [facility] Last Admin: 05/10/18 11:34 Dose: Not Given 53 year old woman with hx of Multple Sclerosis, Hypertension, Hyperlipidemia, Hypothyrodism, trigeminal neualgia, hx of hyponatremia/SIADH who presented with low serum Na as an outpatient and admitted with acute worsening of serum Na. #Acute on Chronic hyponatremia likely due to SIADH #Multiple Sclerosis #Anemia #Hypertension #Small pleural effusion #Hypothyroidism serum sodium improved and stable continue fluid restriction and salt tabs Thank you Tyshawn Doe DO
[2018-05-10] MEDS: COLLAGENASE CLOSTRIDIUM HIST. 30 GRAMS TUBE TP SCH (18:00)
--- NOTE | 2018-05-10 19:04 | PN ---
Progress Note (short form) - Note Progress Note: awake and alert trach to vent Vital Signs Period Temp Pulse Resp BP Sys/Morillo Pulse Ox Last 24 Hr 98.5 F-100.0 F 70-99 11-16 112-158/54-86 97 cor-rrr lungs decreased bs at bases abd soft,nt ext no edema CBC, BMP 05/09/18 07:35 05/10/18 07:00 Microbiology 05/08/18 17:00 Blood - Peripheral Venous Blood Culture - Preliminary NO GROWTH OBTAINED AFTER 48 HOURS, INCUBATION TO CONTINUE FOR 3 DAYS. 05/08/18 17:00 Blood - Peripheral Venous Blood Culture - Preliminary NO GROWTH OBTAINED AFTER 48 HOURS, INCUBATION TO CONTINUE FOR 3 DAYS. 05/06/18 18:30 Sputum - Endotrachea Suction/Ventilator Gram Stain - Final 05/06/18 18:30 Sputum - Endotrachea Suction/Ventilator Sputum Culture - Final Pseudomonas Aeruginosa Serratia Marcescens Mr S Aureus 05/06/18 11:20 Blood - Peripheral Venous Blood Culture - Preliminary NO GROWTH OBTAINED AFTER 96 HOURS, INCUBATION TO CONTINUE FOR 1 DAYS. 05/06/18 11:38 Blood - Peripheral Venous Blood Culture - Preliminary NO GROWTH OBTAINED AFTER 96 HOURS, INCUBATION TO CONTINUE FOR 1 DAYS. 05/08/18 19:00 Urine - Urine Raza Legionella Antigen - Final 05/08/18 19:00 Urine - Urine Raza Streptococcus pneumoniae Antigen (M - Final 05/03/18 17:40 Blood - Peripheral Venous Blood Culture - Final NO GROWTH AFTER 5 DAYS INCUBATION 05/03/18 17:40 Blood - Peripheral Venous Blood Culture - Final NO GROWTH AFTER 5 DAYS INCUBATION 05/06/18 14:30 Urine - Urine Raza Urine Culture - Final Contaminated: Please Repeat 05/03/18 17:40 Urine - Urine Clean Catch Urine Culture - Final Contaminated: Please Repeat cxray increased RLL infiltrate, ?effusion imp/reccd fever RLL pneumonia vancomycin and zosyn day #2 clinically improved check vanco trough respiratory failure chronic MS with functional quadraplegia Problem List - Problems (1) Leukocytosis Code(s): D72.829 - ELEVATED WHITE BLOOD CELL COUNT, UNSPECIFIED (2) Hyponatremia Code(s): E87.1 - HYPO-OSMOLALITY AND HYPONATREMIA (3) Chronic respiratory failure Code(s): J96.10 - CHRONIC RESPIRATORY FAILURE, UNSP W HYPOXIA OR HYPERCAPNIA (4) Functional 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
[2018-05-10] MEDS: DEXTROSE 5%-0.45% SALINE 1,000 ML IV SCH ×2 (22:38→22:52)
[2018-05-10] MEDS: MIRTAZAPINE 15 MG TABLET (FP) PO SCH (22:54)
[2018-05-11] MEDS: PIPERACILLIN/TAZOB 4.5 GM 4.5 GM in DEXTROSE 5%-WATER 100 ML IVPB SCH ×3 (01:24→18:10)
[2018-05-11] MEDS: VANCOMYCIN 1 GRAM (PRE-DOCKED) 1,000 MG/250 ML BAG IVPB SCH (04:10)
[2018-05-11] MEDS: carBAMazepine 100 MG TAB.CHEW PO SCH ×2 (07:03→15:34)
[2018-05-11] MEDS: hydrALAZINE HCL 50 MG TABLET (FP) PO SCH ×2 (07:03→15:42)
[2018-05-11 07:17] LABS: HEMOGLOBIN 8.1 GM/dL (10.7-15.3); MCHC 33.9 g/dl (32.0-36.0); MEAN CELL VOLUME 94.1 fl (80-96); MEAN PLT VOLUME 7.7 fl (7.5-11.1); PLATELET COUNT 172 K/MM3 (134-434); RBC 2.55 M/mm3 (3.60-5.2); RDW 15.5 % (11.6-15.6); WHITE BLOOD COUNT 6.8 K/mm3 (4.0-10.0)
[2018-05-11 07:46] LABS: ANION GAP 7 MMOL/L (8-16); BLOOD UREA NITROGEN 11 mg/dL (7-18); CALCIUM 8.7 mg/dL (8.5-10.1); CHLORIDE 97 mmol/L (98-107); CO2 31 mmol/L (21-32); CREATININE 0.4 mg/dL (0.55-1.3); GLUCOSE,RANDOM 105 mg/dL (74-106); SODIUM 135 mmol/L (136-145)
[2018-05-11] MEDS: ALBUTEROL SO4 2.5/IPRATROPIUM 0.5 INH SOL 3 ML VIAL.NEB. NEB SCH ×4 (08:20→20:48)
--- NOTE | 2018-05-11 08:30 | PN ---
Progress Note, Physician - Current Medication List Current Medications: Active Medications Acetaminophen (Tylenol -) 650 mg PO Q6H PRN PRN Reason: FEVER Albuterol/Ipratropium (Duoneb -) 1 amp NEB RQID [facility] Last Admin: 05/11/18 08:20 Dose: 1 amp Ascorbic Acid (Vitamin C -) 500 mg PO DAILY [facility] Last Admin: 05/10/18 11:35 Dose: Not Given Bacitracin (Bacitracin -) 1 applic TP BID [facility] Last Admin: 05/10/18 22:54 Dose: 1 applic Carbamazepine (Tegretol -) 100 mg PO TID [facility] Last Admin: 05/11/18 07:03 Dose: 100 mg Clonazepam (Klonopin -) 1 mg PO HS PRN PRN Reason: INSOMNIA Last Admin: 05/08/18 21:48 Dose: 1 mg Collagenase (Santyl -) 1 applic TP DAILY [facility]; Protocol Last Admin: 05/10/18 18:00 Dose: 1 applic Cyanocobalamin (Vitamin B12 -) 1,000 mcg PO DAILY [facility] Last Admin: 05/10/18 11:35 Dose: Not Given Ferrous Sulfate (Feosol -) 325 mg PO DAILY [facility] Last Admin: 05/10/18 11:32 Dose: Not Given Folic Acid (Folic Acid -) 1 mg PO DAILY [facility] Last Admin: 05/10/18 11:33 Dose: Not Given Hydralazine HCl (Apresoline -) 50 mg PO TID [facility] Last Admin: 05/11/18 07:03 Dose: 50 mg Vancomycin HCl (Vancomycin (Pre-Docked)) 1,000 mg in 250 mls @ 166.667 mls/hr IVPB Q12H [facility]; Protocol Last Admin: 05/11/18 04:10 Dose: 166.667 mls/hr Piperacillin Sod/Tazobactam (Sod 4.5 gm/ Dextrose) 100 mls @ 200 mls/hr IVPB Q8H-IV [facility]; Protocol Last Admin: 05/11/18 01:24 Dose: 200 mls/hr Dextrose/Sodium Chloride (D5-1/2ns -) 1,000 mls @ 60 mls/hr IV ASDIR [facility] Last Admin: 05/10/18 22:52 Dose: Not Given Lactobacillus Acidophilus (Bacid -) 1 tab PO BID [facility] Last Admin: 05/10/18 22:52 Dose: Not Given Levothyroxine Sodium (Synthroid Injection -) 37.5 mcg IVPUSH DAILY [facility] Last Admin: 05/10/18 11:23 Dose: 37.5 mcg Loperamide HCl (Imodium Liquid -) 1 mg PO Q8H PRN PRN Reason: DIARRHEA Loratadine (Claritin -) 10 mg PO DAILY [facility] Last Admin: 05/10/18 11:32 Dose: Not Given Metoprolol Tartrate (Lopressor -) 50 mg PO BID [facility] Last Admin: 05/10/18 22:53 Dose: Not Given Mirtazapine (Remeron -) 7.5 mg PO HS [facility] Last Admin: 05/10/18 22:54 Dose: Not Given Nystatin/Triamcinolone Acetonide (Mycolog Ii Ointment -) 1 applic TP BID [facility] Last Admin: 05/10/18 22:53 Dose: 1 applic Pantoprazole Sodium (Protonix Iv) 40 mg IVPUSH BID [facility] Last Admin: 05/10/18 22:38 Dose: 40 mg Potassium Phos/Sodium Phos (Phos-Nak Packet -) 1 packet PO DAILY [facility] Last Admin: 05/10/18 11:34 Dose: Not Given Sertraline HCl (Zoloft -) 50 mg PO DAILY [facility] Last Admin: 05/10/18 11:36 Dose: Not Given Sodium Chloride (Sodium Chloride Tablet -) 1 gm PO BID [facility] Last Admin: 05/10/18 22:54 Dose: 1 gm Zinc Sulfate (Orazinc -) 220 mg PO DAILY [facility] Last Admin: 05/10/18 11:34 Dose: Not Given - Objective Vital Signs: Vital Signs Temperature 98.3 F 05/11/18 06:00 Pulse Rate 77 05/11/18 06:00 Respiratory Rate 10 05/11/18 06:27 Blood Pressure 141/66 05/11/18 06:00 O2 Sat by Pulse Oximetry (%) 98 05/10/18 21:00 Cardiovascular: Yes: S1, S2 Respiratory: Yes: Mechanically Ventilated, Rhonchi Gastrointestinal: Yes: Normal Bowel Sounds, Soft Labs: CBC, BMP 05/11/18 06:20 05/11/18 06:20 Problem List - Problems (1) Hyponatremia Code(s): E87.1 - HYPO-OSMOLALITY AND HYPONATREMIA (2) Anemia Code(s): D64.9 - ANEMIA, UNSPECIFIED Qualifiers: Other causes of anemia: other cause, not classified Qualified Code(s): D64.89 - Other specified anemias (3) Chronic respiratory failure Code(s): J96.10 - CHRONIC RESPIRATORY FAILURE, UNSP W HYPOXIA OR HYPERCAPNIA (4) Functional quadriplegia Code(s): R53.2 - FUNCTIONAL QUADRIPLEGIA (5) Hypothyroid Code(s): E03.9 - HYPOTHYROIDISM, UNSPECIFIED (6) Multiple sclerosis Code(s): G35 - MULTIPLE SCLEROSIS (7) Decubital ulcer Code(s): L89.90 - PRESSURE ULCER OF UNSPECIFIED SITE, UNSPECIFIED STAGE Qualifiers: Pressure injury location: unspecified location Pressure injury stage: unspecified pressure injury stage Qualified Code(s): L89.90 - Pressure ulcer of unspecified site, unspecified stage (8) Abnormal LFTs Code(s): R94.5 - ABNORMAL RESULTS OF LIVER FUNCTION STUDIES Assessment/Plan - Problems (1) Hyponatremia Assessment/Plan: soidum now is 132 started on ivf bc not eating well Code(s): E87.1 - HYPO-OSMOLALITY AND HYPONATREMIA (2) Anemia Assessment/Plan: iron panel Code(s): D64.9 - ANEMIA, UNSPECIFIED (3) Hypothyroid Assessment/Plan: check tsh change to iv as cannot take oral synthroid synthoid 75mcg iv once mental status improves will switch back to synthroid 100mcg po daily Code(s): E03.9 - HYPOTHYROIDISM, UNSPECIFIED (4) Respiratory Failure Assessment/Plan: Pneumonia cxr nebs pulm suctioning abx per ID (5) Hx of multiple sclerosis Assessment/Plan: vent support appreciate neurology note thiamine iv dvt ppx to get palliative team involved regarding advcne directives and regarding peg placement will get IR to put temporary ng tube as patient not been getting nutriton in last few days bc of mental status changes Code(s): Z86.69 - PERSONAL HISTORY OF DIS OF THE NERVOUS SYS AND SENSE ORGANS (6) Electrolyte imbalance Assessment/Plan: potassium and phos and magnesium repleted Code(s): E87.8 - OTH DISORDERS OF ELECTROLYTE AND FLUID BALANCE, NEC (7) Functional quadriplegia secondary to MS Assessment/Plan: perera frequent turn position dr jeffries- wound consult trial of paussy tenzin valve with junior faulkner dvt ppx palliative care team Code(s): G35 - MULTIPLE SCLEROSIS; R53.2 - FUNCTIONAL QUADRIPLEGIA (8) Insomnia Assessment/Plan: in the hospital will give clonazepam at night that what she takes at home and put her on the vent at night and in the morning till she is fully awake Code(s): G47.00 - INSOMNIA, UNSPECIFIED
[2018-05-11] MEDS: BACITRACIN 15 GM TUBE TOPICAL OINTMENT TP SCH (09:00)
[2018-05-11 09:55] LABS: POTASSIUM 2.9 mmol/L (3.5-5.1)
[2018-05-11] MEDS: NYSTATIN/TRIAMCINOLONE TOPICAL OINTMENT 15 GM TUBE TP SCH (10:00)
[2018-05-11] MEDS ORDERED: PT OWN MED DRAWER 7, Y5N ONE ×2 (11:08→11:16)
[2018-05-11] MEDS ORDERED: DEXTROSE 5%-WATER 100 ML IVPB ONE ×2 (11:09→18:07)
[2018-05-11] MEDS ORDERED: PIPERACILLIN/TAZOBACTAM 4.5 GM VIAL IVPB ONE ×2 (11:09→18:06)
[2018-05-11] MEDS: LACTOBACILLUS ACIDOPHILUS 1 TABLET PO SCH (11:15)
[2018-05-11] MEDS: FERROUS SO4 325 MG TABLET (FP) PO SCH (11:16)
[2018-05-11] MEDS: FOLIC ACID 1 MG TABLET (FP) PO SCH ×2 (11:16→15:37)
[2018-05-11] MEDS: LORATADINE 10 MG TABLET PO SCH ×2 (11:16→15:36)
[2018-05-11] MEDS: METOPROLOL TARTRATE 50 MG TABLET (FP) PO SCH (11:16)
[2018-05-11] MEDS: MULTIVIT-MINERALS ORAL LIQUID PO SCH (11:16)
[2018-05-11] MEDS: SODIUM CHLORIDE 1 GM TABLET PO SCH (11:17)
[2018-05-11] MEDS: ZINC SULFATE 220 MG CAPSULE (FP) PO SCH ×2 (11:17→15:38)
[2018-05-11] MEDS: NAPH,MB-DB/K PH,MBDB POWDER PACKET PO SCH ×2 (11:17→15:32)
[2018-05-11] MEDS: CYANOCOBALAMIN 1,000 MCG TABLET (FP) PO SCH ×2 (11:18→15:39)
[2018-05-11] MEDS: SERTRALINE HCL 50 MG TABLET (FP) PO SCH (11:18)
[2018-05-11] MEDS: ASCORBIC ACID 500 MG TABLET (FP) PO SCH ×2 (11:18→15:40)
[2018-05-11] MEDS: PANTOPRAZOLE SODIUM 40 MG VIAL IVPUSH SCH ×2 (11:20→22:19)
[2018-05-11] MEDS: LEVOTHYROXINE SODIUM 100 MCG VIAL IVPUSH SCH (11:24)
--- NOTE | 2018-05-11 12:21 | PN ---
Progress Note, Physician History of Present Illness: pulmonary more awake today,-resp distress on vent support,ac mode,for ngt insertion by IR later today - Current Medication List Current Medications: Active Medications Acetaminophen (Tylenol -) 650 mg PO Q6H PRN PRN Reason: FEVER Albuterol/Ipratropium (Duoneb -) 1 amp NEB RQID [facility] Last Admin: 05/11/18 11:15 Dose: 1 amp Ascorbic Acid (Vitamin C -) 500 mg PO DAILY [facility] Last Admin: 05/11/18 11:18 Dose: Not Given Bacitracin (Bacitracin -) 1 applic TP BID [facility] Last Admin: 05/10/18 22:54 Dose: 1 applic Carbamazepine (Tegretol -) 100 mg PO TID [facility] Last Admin: 05/11/18 07:03 Dose: 100 mg Clonazepam (Klonopin -) 1 mg PO HS PRN PRN Reason: INSOMNIA Last Admin: 05/08/18 21:48 Dose: 1 mg Collagenase (Santyl -) 1 applic TP DAILY [facility]; Protocol Last Admin: 05/10/18 18:00 Dose: 1 applic Cyanocobalamin (Vitamin B12 -) 1,000 mcg PO DAILY [facility] Last Admin: 05/11/18 11:18 Dose: Not Given Ferrous Sulfate (Feosol -) 325 mg PO DAILY [facility] Last Admin: 05/11/18 11:16 Dose: Not Given Folic Acid (Folic Acid -) 1 mg PO DAILY [facility] Last Admin: 05/11/18 11:16 Dose: Not Given Hydralazine HCl (Apresoline -) 50 mg PO TID [facility] Last Admin: 05/11/18 07:03 Dose: 50 mg Piperacillin Sod/Tazobactam (Sod 4.5 gm/ Dextrose) 100 mls @ 200 mls/hr IVPB Q8H-IV [facility]; Protocol Last Admin: 05/11/18 11:31 Dose: 200 mls/hr Potassium Chloride (Potassium Chloride 10 Meq Premix Ivpb -) 10 meq in 100 mls @ 100 mls/hr IVPB Q60M [facility] Stop: 05/11/18 13:59 Lactobacillus Acidophilus (Bacid -) 1 tab PO BID [facility] Last Admin: 05/11/18 11:15 Dose: Not Given Levothyroxine Sodium (Synthroid Injection -) 37.5 mcg IVPUSH DAILY [facility] Last Admin: 05/11/18 11:24 Dose: 37.5 mcg Loperamide HCl (Imodium Liquid -) 1 mg PO Q8H PRN PRN Reason: DIARRHEA Loratadine (Claritin -) 10 mg PO DAILY [facility] Last Admin: 05/11/18 11:16 Dose: Not Given Metoprolol Tartrate (Lopressor -) 50 mg PO BID [facility] Last Admin: 05/11/18 11:16 Dose: Not Given Mirtazapine (Remeron -) 7.5 mg PO HS [facility] Last Admin: 05/10/18 22:54 Dose: Not Given Nystatin/Triamcinolone Acetonide (Mycolog Ii Ointment -) 1 applic TP BID [facility] Last Admin: 05/10/18 22:53 Dose: 1 applic Pantoprazole Sodium (Protonix Iv) 40 mg IVPUSH BID [facility] Last Admin: 05/11/18 11:20 Dose: 40 mg Potassium Phos/Sodium Phos (Phos-Nak Packet -) 1 packet PO DAILY [facility] Last Admin: 05/11/18 11:17 Dose: Not Given Sertraline HCl (Zoloft -) 50 mg PO DAILY [facility] Last Admin: 05/11/18 11:18 Dose: Not Given Sodium Chloride (Sodium Chloride Tablet -) 1 gm PO BID [facility] Last Admin: 05/11/18 11:17 Dose: Not Given Zinc Sulfate (Orazinc -) 220 mg PO DAILY [facility] Last Admin: 05/11/18 11:17 Dose: Not Given - Objective Vital Signs: Vital Signs Temperature 98.3 F 05/11/18 06:00 Pulse Rate 77 05/11/18 06:00 Respiratory Rate 12 05/11/18 10:34 Blood Pressure 141/66 05/11/18 06:00 O2 Sat by Pulse Oximetry (%) 98 05/10/18 21:00 Constitutional: Yes: Well Nourished, Calm Eyes: Yes: WNL HENT: Yes: WNL Neck: Yes: Supple (trach) Cardiovascular: Yes: Regular Rate and Rhythm, S1, S2 Respiratory: Yes: Rhonchi (bilateral rhonchi) Gastrointestinal: Yes: Normal Bowel Sounds, Soft Extremities: Yes: WNL Edema: No Labs: CBC, BMP 05/11/18 06:20 05/11/18 06:20 Problem List - Problems (1) Anemia Code(s): D64.9 - ANEMIA, UNSPECIFIED (2) Electrolyte imbalance Code(s): E87.8 - OTH DISORDERS OF ELECTROLYTE AND FLUID BALANCE, NEC (3) Functional 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 (4) Toxic metabolic encephalopathy Code(s): G92 - TOXIC ENCEPHALOPATHY (5) Acute on chronic respiratory failure with hypoxia and hypercapnia Code(s): J96.21 - ACUTE AND CHRONIC RESPIRATORY FAILURE WITH HYPOXIA; J96.22 - ACUTE AND CHRONIC RESPIRATORY FAILURE WITH HYPERCAPNIA (6) Failure to thrive Code(s): [id number] - (7) Functional quadriplegia Code(s): R53.2 - FUNCTIONAL QUADRIPLEGIA (8) Hx of multiple sclerosis Code(s): Z86.69 - PERSONAL HISTORY OF DIS OF THE NERVOUS SYS AND SENSE ORGANS (9) Hypokalemia Code(s): E87.6 - HYPOKALEMIA (10) Multiple sclerosis Code(s): G35 - MULTIPLE SCLEROSIS (11) Pneumonia Code(s): J18.9 - PNEUMONIA, UNSPECIFIED ORGANISM Qualifiers: Pneumonia type: pneumonia due to methicillin-resistant Staphylococcus aureus (MRSA) (12) Sacral decubitus ulcer, stage IV Code(s): L89.154 - PRESSURE ULCER OF SACRAL REGION, STAGE 4 (13) Status post tracheostomy Code(s): Z93.0 - TRACHEOSTOMY STATUS Assessment/Plan ASSESSMENT/PLAN: Suspected aspiration pneumonitis AMS due to Severe Hyponatremia Toxic Metabolic Encephalopathy Functional Quadriplegia Multiple Sclerosis Trigeminal Neuralgia Acute on chronic respiratory failure HTN Hypothyroidism Depression Anxiety NGT insertion by IR today NPO Wean trials as tolerated Baclofen pump BD TX ABX per ID DR ELDER
[2018-05-11] MEDS: KCL 10 MEQ IVPB 10 MEQ/100 ML INFUS.BAG IVPB SCH ×3 (12:23→16:48)
--- NOTE | 2018-05-11 12:31 | PN ---
Progress Note, ELECT[employer] LINEMAN - Note Progress Note: NGT not inserted yesterday, as pt refused. Today, extensive session with pt, her mother,her sister Erinn, MICROELECTRONICS ENGINEER, and Palliative care. Pt was educated on the purpose of the NGT, the risk of aspiration and insufficient nutritional intake. NGT was recommended at this this to improve nutritional intake, provide medication, reduce aspiration risk. As on previous hospitalization, hopefully pt will get stronger, pulmonary function and infectious process will improve, so that possibly pt can use PMV and swallow some modified diet by mouth. PEG insertion was also addressed with possibly PO pleasure feedings by mouth if swallow function continues to be limited. Swallowing reassessed with 1/3 tsp of applesauce provided, with chin tuck and effortful swallow. Soon after trial, secretions expelled out of trach/stoma containing applesauce. This is c/w aspiration of the applesauce. Pt suctioned by nursing. IMP/REC: Aspiration on puree at this time. Suggest NPO including medication, if possible Pt in agreement with temporary NGT for feeding Continue Palliative care regarding education, support, addressing pt's end of life wishes regarding code status/PEG insertion, etc. I contacted Speech Path at [facility] regarding obtaining Computer to be used with eye gaze to facilitate communication/access to internet, email, Skype, etc.
--- NOTE | 2018-05-11 13:05 | PN ---
Progress Note (short form) - Note Progress Note: NEUROLOGY PROGRESS NOTE: Events reviewed and discussed with staff. Mother, sister and echometer engineer at bedside. Consults read and appreciated. Pt with intermittent Fever and hypoxia, ? aspiration pneumonitis. Remains on Zoysn at this time. Continued poor appetite. Agreed to trial NGT feeds by IR today. May require wound debridement, however on hold until after NGT. C/O worsening "nerve pains" on L face attributed to Trigeminal Neuralgia. Sister asking if carbamazepine (CBZ) can be increased. WBC 16.2 -> 6.8 NA 132 -> 135 H/H 01/03.7 -> 8.1/ K 3.3 -> 2.9 GODFREY: -Lhermitte's. On mechanical vent. Perera appears hazy. Blanchable redness to heels. NEURO EXAM: Tongue appears hydrated. Ox [facility]. May,. TRUMP. Difficultly opening mouth. Severely reduced rapid tongue mvmt's. Decreased Gag Tetraplegic. Areflexic. Reduced pinch in all fours. Impression: Advanced MS Toxic-Metabolic Encephalopathy (Hyponatremia, Infection) Trigeminal Neuralgia Suggest: Continue Abx Maintain perera cares and patency, wound cares Agree with NGT trial at this time Monitor H/H, WBC and Na levels. Check Tegretol level Will consider increase in CBZ (once Na+ stable as CBZ can predispose to hyponatremia) Thank you very much, Rom Conroy MD
[2018-05-11] MEDS: COLLAGENASE CLOSTRIDIUM HIST. 30 GRAMS TUBE TP SCH (13:45)
--- NOTE | 2018-05-11 13:47 | PN ---
Progress Note (short form) - Note Progress Note: awake and alert trach to vent Vital Signs Period Temp Pulse Resp BP Sys/Morillo Pulse Ox Last 24 Hr 98.3 F-100.0 F 67-83 10-18 112-141/54-66 98 cor-rrr lungs clear, decreased to bs abd soft,nt ext no edema CBC, BMP 05/11/18 06:20 05/11/18 06:20 Microbiology 05/06/18 11:20 Blood - Peripheral Venous Blood Culture - Final NO GROWTH AFTER 5 DAYS INCUBATION 05/06/18 11:38 Blood - Peripheral Venous Blood Culture - Final NO GROWTH AFTER 5 DAYS INCUBATION 05/08/18 17:00 Blood - Peripheral Venous Blood Culture - Preliminary NO GROWTH OBTAINED AFTER 48 HOURS, INCUBATION TO CONTINUE FOR 3 DAYS. 05/08/18 17:00 Blood - Peripheral Venous Blood Culture - Preliminary NO GROWTH OBTAINED AFTER 48 HOURS, INCUBATION TO CONTINUE FOR 3 DAYS. 05/06/18 18:30 Sputum - Endotrachea Suction/Ventilator Gram Stain - Final 05/06/18 18:30 Sputum - Endotrachea Suction/Ventilator Sputum Culture - Final Pseudomonas Aeruginosa Serratia Marcescens Mr S Aureus 05/08/18 19:00 Urine - Urine Raza Legionella Antigen - Final 05/08/18 19:00 Urine - Urine Raza Streptococcus pneumoniae Antigen (M - Final 05/03/18 17:40 Blood - Peripheral Venous Blood Culture - Final NO GROWTH AFTER 5 DAYS INCUBATION 05/03/18 17:40 Blood - Peripheral Venous Blood Culture - Final NO GROWTH AFTER 5 DAYS INCUBATION 05/06/18 14:30 Urine - Urine Raza Urine Culture - Final Contaminated: Please Repeat 05/03/18 17:40 Urine - Urine Clean Catch Urine Culture - Final Contaminated: Please Repeat vanco trough-35 cxray increased RLL infiltrate, ?effusion imp/reccd fever RLL pneumonia vancomycin and zosyn day #3 clinically improved hold vancomycin, check level in am continue zosyn respiratory failure chronic MS with functional quadraplegia Problem List - Problems (1) Leukocytosis Code(s): D72.829 - ELEVATED WHITE BLOOD CELL COUNT, UNSPECIFIED (2) Hyponatremia Code(s): E87.1 - HYPO-OSMOLALITY AND HYPONATREMIA (3) Chronic respiratory failure Code(s): J96.10 - CHRONIC RESPIRATORY FAILURE, UNSP W HYPOXIA OR HYPERCAPNIA (4) Functional 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
[2018-05-11] MEDS: hydrALAZINE HCL 50 MG TABLET (FP) NGT SCH (22:21)
[2018-05-11] MEDS: LACTOBACILLUS ACIDOPHILUS 1 TABLET NGT SCH (22:21)
[2018-05-11] MEDS: SODIUM CHLORIDE 1 GM TABLET NGT SCH (22:22)
[2018-05-11] MEDS: MIRTAZAPINE 15 MG TABLET (FP) NGT SCH (22:22)
[2018-05-11] MEDS: METOPROLOL TARTRATE 50 MG TABLET (FP) NGT SCH (22:22)
[2018-05-11] MEDS: carBAMazepine 100 MG TAB.CHEW NGT SCH (22:22)
[2018-05-11] MEDS: ACETAMINOPHEN 650 MG/20.3 ML ORAL SOLUTION (CUPS) NGT PRN (22:29)
[2018-05-11] MEDS: clonazePAM 0.5 MG TABLET NGT PRN (22:37)
[2018-05-12] MEDS: BACITRACIN 15 GM TUBE TOPICAL OINTMENT TP SCH ×3 (00:01→21:21)
[2018-05-12] MEDS: NYSTATIN/TRIAMCINOLONE TOPICAL OINTMENT 15 GM TUBE TP SCH ×3 (00:02→21:20)
[2018-05-12] MEDS ORDERED: DEXTROSE 5%-WATER 100 ML IVPB ONE ×3 (01:17→17:45)
[2018-05-12] MEDS ORDERED: PIPERACILLIN/TAZOBACTAM 4.5 GM VIAL IVPB ONE ×3 (01:17→17:44)
[2018-05-12] MEDS: PIPERACILLIN/TAZOB 4.5 GM 4.5 GM in DEXTROSE 5%-WATER 100 ML IVPB SCH ×4 (01:33→17:54)
[2018-05-12] MEDS: hydrALAZINE HCL 50 MG TABLET (FP) NGT SCH ×3 (05:50→21:19)
[2018-05-12] MEDS: carBAMazepine 100 MG TAB.CHEW NGT SCH ×3 (05:53→21:23)
[2018-05-12] MEDS ORDERED: PT OWN MED DRAWER 7, Y5N ONE ×3 (06:37→19:41)
[2018-05-12] MEDS: ALBUTEROL SO4 2.5/IPRATROPIUM 0.5 INH SOL 3 ML VIAL.NEB. NEB SCH ×4 (07:59→22:21)
[2018-05-12] MEDS: LORATADINE 10 MG TABLET NGT SCH (10:32)
[2018-05-12] MEDS: CYANOCOBALAMIN 1,000 MCG TABLET (FP) NGT SCH (10:32)
[2018-05-12] MEDS: LACTOBACILLUS ACIDOPHILUS 1 TABLET NGT SCH ×2 (10:32→21:19)
[2018-05-12] MEDS: METOPROLOL TARTRATE 50 MG TABLET (FP) NGT SCH ×2 (10:32→21:21)
[2018-05-12] MEDS: FOLIC ACID 1 MG TABLET (FP) NGT SCH (10:32)
[2018-05-12] MEDS: SERTRALINE HCL 50 MG TABLET (FP) NGT SCH (10:32)
[2018-05-12] MEDS: ZINC SULFATE 220 MG CAPSULE (FP) NGT SCH (10:32)
[2018-05-12] MEDS: NAPH,MB-DB/K PH,MBDB POWDER PACKET NGT SCH (10:33)
[2018-05-12] MEDS: FERROUS SO4 300 MG/5 ML ORAL SOLN UNIT DOSE CUPS NGT SCH (10:34)
[2018-05-12] MEDS: ASCORBIC ACID 500 MG/5 ML UNIT DOSE CUP NGT SCH (10:34)
[2018-05-12] MEDS: SODIUM CHLORIDE 1 GM TABLET NGT SCH ×2 (10:36→21:23)
[2018-05-12] MEDS: MULTIVIT-MINERALS ORAL LIQUID NGT SCH (10:36)
--- NOTE | 2018-05-12 11:14 | PN ---
Progress Note (short form) - Note Progress Note: Less sleepy today and more interactive. NGT placed yesterday by IR and now receiving NGT feeds. AC Mode of vent. D/W patient and mother about possible need for PEG insertion. Intake & Output 05/09/18 05/10/18 05/11/18 05/12/18 23:59 23:59 23:59 23:59 Intake Total 1850 1400 1600 430 Output Total 1000 1150 1450 500 Balance 850 250 150 -70 Last Vital Signs Temp Pulse Resp BP Pulse Ox 100.2 F H 77 12 122/59 L 97 05/12/18 06:00 05/12/18 06:00 05/12/18 06:12 05/12/18 06:00 05/11/18 09:00 Active Medications Acetaminophen (Tylenol Oral Solution -) 650 mg NGT Q6H PRN PRN Reason: FEVER Last Admin: 05/11/18 22:29 Dose: 650 mg Albuterol/Ipratropium (Duoneb -) 1 amp NEB RQID [facility] Last Admin: 05/12/18 07:59 Dose: 1 amp Ascorbic Acid (Vitamin C Oral Solution -) 500 mg NGT DAILY [facility] Last Admin: 05/12/18 10:34 Dose: 500 mg Bacitracin (Bacitracin -) 1 applic TP BID [facility] Last Admin: 05/12/18 09:15 Dose: 1 applic Carbamazepine (Tegretol -) 100 mg NGT TID [facility] Last Admin: 05/12/18 05:53 Dose: 100 mg Clonazepam (Klonopin -) 1 mg NGT HS PRN PRN Reason: INSOMNIA Last Admin: 05/11/18 22:37 Dose: 1 mg Collagenase (Santyl -) 1 applic TP DAILY [facility]; Protocol Last Admin: 05/11/18 13:45 Dose: 1 applic Cyanocobalamin (Vitamin B12 -) 1,000 mcg NGT DAILY [facility] Last Admin: 05/12/18 10:32 Dose: 1,000 mcg Ferrous Sulfate (Feosol) 300 mg NGT DAILY [facility] Last Admin: 05/12/18 10:34 Dose: 300 mg Folic Acid (Folic Acid -) 1 mg NGT DAILY [facility] Last Admin: 05/12/18 10:32 Dose: 1 mg Hydralazine HCl (Apresoline -) 50 mg NGT TID [facility] Last Admin: 05/12/18 05:50 Dose: Not Given Piperacillin Sod/Tazobactam (Sod 4.5 gm/ Dextrose) 100 mls @ 200 mls/hr IVPB Q8H-IV [facility]; Protocol Last Admin: 05/12/18 10:33 Dose: 200 mls/hr Lactobacillus Acidophilus (Bacid -) 1 tab NGT BID [facility] Last Admin: 05/12/18 10:32 Dose: 1 tab Levothyroxine Sodium (Synthroid Injection -) 37.5 mcg IVPUSH DAILY [facility] Last Admin: 05/12/18 10:35 Dose: 37.5 mcg Loperamide HCl (Imodium Liquid -) 1 mg NGT Q8H PRN PRN Reason: DIARRHEA Loratadine (Claritin -) 10 mg NGT DAILY [facility] Last Admin: 05/12/18 10:32 Dose: 10 mg Metoprolol Tartrate (Lopressor -) 50 mg NGT BID [facility] Last Admin: 05/12/18 10:32 Dose: 50 mg Mirtazapine (Remeron -) 7.5 mg NGT HS [facility] Last Admin: 05/11/18 22:22 Dose: 7.5 mg Nystatin/Triamcinolone Acetonide (Mycolog Ii Ointment -) 1 applic TP BID [facility] Last Admin: 05/12/18 10:26 Dose: 1 applic Pantoprazole Sodium (Protonix Iv) 40 mg IVPUSH BID [facility] Last Admin: 05/12/18 10:36 Dose: 40 mg Potassium Phos/Sodium Phos (Phos-Nak Packet -) 1 packet NGT DAILY [facility] Last Admin: 05/12/18 10:33 Dose: 1 packet Sertraline HCl (Zoloft -) 50 mg NGT DAILY [facility] Last Admin: 05/12/18 10:32 Dose: 50 mg Sodium Chloride (Sodium Chloride Tablet -) 1 gm NGT BID [facility] Last Admin: 05/12/18 10:36 Dose: 1 gm Zinc Sulfate (Orazinc -) 220 mg NGT DAILY [facility] Last Admin: 05/12/18 10:32 Dose: 220 mg GENERAL:Vented, awake and responsive HEAD: Normal with no signs of trauma. EYES: Pupils equal, round and reactive to light, sclera anicteric, conjunctiva clear. ENT: Dry mucous membranes with oral thrush NECK: (-) JVD, (+) Trach intact LUNGS: Bilateral scattered rhonchi. Mechanically ventilated HEART: Regular rate and rhythm, normal S1 and S2 without murmur, rub or gallop. ABDOMEN: Soft, nontender, not distended, normoactive bowel sounds, no guarding, no rebound, no masses. MUSCULOSKELETAL: No CVA tenderness. EXTREMITIES: 2+ pulses, warm, well-perfused. No calf tenderness. Trace pitting edema NEUROLOGICAL: paraplegic SKIN: (+) Stage III sacral ulcer, with multiple pressure injuries in the sacral and coccyx area. ASSESSMENT/PLAN: Suspected aspiration pneumonitis AMS due to Severe Hyponatremia Toxic Metabolic Encephalopathy Functional Quadriplegia Multiple Sclerosis Trigeminal Neuralgia Acute on chronic respiratory failure HTN Hypothyroidism Depression Anxiety Enteral feeds as tolerated OK to attempt CPAP wean trials as tolerated, for now would be cautious with PMV usage Baclofen pump BD TX ABX per ID Aspiration precautions BD TX VTE prophylaxis Dr Fox
[2018-05-12] MEDS: PANTOPRAZOLE SODIUM 40 MG VIAL IVPUSH SCH ×2 (12:55→21:22)
[2018-05-12] MEDS: LEVOTHYROXINE SODIUM 100 MCG VIAL IVPUSH SCH (13:00)
--- NOTE | 2018-05-12 14:32 | PN ---
Progress Note, Physician Chief Complaint: patient seen and examined more awake today low grade temp yesterday aspirated on puree yesterday NGT placed by IR - Current Medication List Current Medications: Active Medications Acetaminophen (Tylenol Oral Solution -) 650 mg NGT Q6H PRN PRN Reason: FEVER Last Admin: 05/11/18 22:29 Dose: 650 mg Albuterol/Ipratropium (Duoneb -) 1 amp NEB RQID [facility] Last Admin: 05/12/18 07:59 Dose: 1 amp Ascorbic Acid (Vitamin C Oral Solution -) 500 mg NGT DAILY [facility] Last Admin: 05/12/18 10:34 Dose: 500 mg Bacitracin (Bacitracin -) 1 applic TP BID [facility] Last Admin: 05/12/18 09:15 Dose: 1 applic Carbamazepine (Tegretol -) 100 mg NGT TID [facility] Last Admin: 05/12/18 14:20 Dose: 100 mg Clonazepam (Klonopin -) 1 mg NGT HS PRN PRN Reason: INSOMNIA Last Admin: 05/11/18 22:37 Dose: 1 mg Collagenase (Santyl -) 1 applic TP DAILY [facility]; Protocol Last Admin: 05/11/18 13:45 Dose: 1 applic Cyanocobalamin (Vitamin B12 -) 1,000 mcg NGT DAILY [facility] Last Admin: 05/12/18 10:32 Dose: 1,000 mcg Ferrous Sulfate (Feosol) 300 mg NGT DAILY [facility] Last Admin: 05/12/18 10:34 Dose: 300 mg Folic Acid (Folic Acid -) 1 mg NGT DAILY [facility] Last Admin: 05/12/18 10:32 Dose: 1 mg Hydralazine HCl (Apresoline -) 50 mg NGT TID [facility] Last Admin: 05/12/18 14:20 Dose: 50 mg Piperacillin Sod/Tazobactam (Sod 4.5 gm/ Dextrose) 100 mls @ 200 mls/hr IVPB Q8H-IV [facility]; Protocol Last Admin: 05/12/18 13:04 Dose: 200 mls/hr Lactobacillus Acidophilus (Bacid -) 1 tab NGT BID [facility] Last Admin: 05/12/18 10:32 Dose: 1 tab Levothyroxine Sodium (Synthroid Injection -) 37.5 mcg IVPUSH DAILY [facility] Last Admin: 05/12/18 13:00 Dose: 37.5 mcg Loperamide HCl (Imodium Liquid -) 1 mg NGT Q8H PRN PRN Reason: DIARRHEA Loratadine (Claritin -) 10 mg NGT DAILY [facility] Last Admin: 05/12/18 10:32 Dose: 10 mg Metoprolol Tartrate (Lopressor -) 50 mg NGT BID [facility] Last Admin: 05/12/18 10:32 Dose: 50 mg Mirtazapine (Remeron -) 7.5 mg NGT HS [facility] Last Admin: 05/11/18 22:22 Dose: 7.5 mg Nystatin/Triamcinolone Acetonide (Mycolog Ii Ointment -) 1 applic TP BID [facility] Last Admin: 05/12/18 10:26 Dose: 1 applic Pantoprazole Sodium (Protonix Iv) 40 mg IVPUSH BID [facility] Last Admin: 05/12/18 12:55 Dose: 40 mg Potassium Phos/Sodium Phos (Phos-Nak Packet -) 1 packet NGT DAILY [facility] Last Admin: 05/12/18 10:33 Dose: 1 packet Sertraline HCl (Zoloft -) 50 mg NGT DAILY [facility] Last Admin: 05/12/18 10:32 Dose: 50 mg Sodium Chloride (Sodium Chloride Tablet -) 1 gm NGT BID [facility] Last Admin: 05/12/18 10:36 Dose: 1 gm Zinc Sulfate (Orazinc -) 220 mg NGT DAILY [facility] Last Admin: 05/12/18 10:32 Dose: 220 mg - Objective Vital Signs: Vital Signs Temperature 100.2 F H 05/12/18 06:00 Pulse Rate 77 05/12/18 06:00 Respiratory Rate 13 05/12/18 10:35 Blood Pressure 122/59 L 05/12/18 06:00 O2 Sat by Pulse Oximetry (%) 97 05/11/18 09:00 Constitutional: Yes: Calm HENT: Yes: Other (ng tube) Neck: Yes: Other (trach) Cardiovascular: Yes: Regular Rate and Rhythm, S1, S2 Respiratory: Yes: Mechanically Ventilated Gastrointestinal: Yes: Normal Bowel Sounds, Soft Genitourinary: Yes: Perera Present Neurological: Yes: Alert, Pre-Existing Deficit Labs: CBC, BMP 05/11/18 06:20 05/11/18 06:20 Problem List - Problems (1) Hyponatremia Assessment/Plan: sodium is 135 ng tube placed for tube feeds Code(s): E87.1 - HYPO-OSMOLALITY AND HYPONATREMIA (2) Anemia Assessment/Plan: repeat cbc ordered on ferrous sulfate Code(s): D64.9 - ANEMIA, UNSPECIFIED (3) Hypothyroid Assessment/Plan: change to iv as cannot take oral synthroid synthoid 75mcg iv once mental status improves will switch back to synthroid 100mcg po daily Code(s): E03.9 - HYPOTHYROIDISM, UNSPECIFIED (4) Hyperkalemia Assessment/Plan: improved now hypokalemic Code(s): E87.5 - HYPERKALEMIA (5) Hx of multiple sclerosis Assessment/Plan: vent support appreciate neurology note dvt ppx NG tube placed by IR for aspiration Code(s): Z86.69 - PERSONAL HISTORY OF DIS OF THE NERVOUS SYS AND SENSE ORGANS (6) Electrolyte imbalance Assessment/Plan: potassium and phos and magnesium repleted Code(s): E87.8 - OTH DISORDERS OF ELECTROLYTE AND FLUID BALANCE, NEC (7) Functional quadriplegia secondary to MS Assessment/Plan: perera frequent turn positon dr jeffries- wound consult noted dvt ppx pallitive care team Code(s): G35 - MULTIPLE SCLEROSIS; R53.2 - FUNCTIONAL QUADRIPLEGIA (8) Insomnia Assessment/Plan: in the hospital will give clonazzepam at night that what she takes at home and put her on the vent at night and in the morning till she is fully awake Code(s): G47.00 - INSOMNIA, UNSPECIFIED
--- NOTE | 2018-05-12 15:03 | PN ---
Progress Note (short form) - Note Progress Note: Renal follow up for Hyponatremia Pt seen and examined at the bedside sleeping now, was awake all morning and interacting well no overnight events on vent Vital Signs Temperature 100.2 F H 05/12/18 06:00 Pulse Rate 66 05/12/18 14:58 Respiratory Rate 12 05/12/18 14:58 Blood Pressure 125/56 L 05/12/18 14:58 O2 Sat by Pulse Oximetry (%) 97 05/11/18 09:00 NAD on vent via trach No edema in LE CBC, BMP 05/11/18 06:20 05/11/18 06:20 Current Medications Acetaminophen (Tylenol Oral Solution -) 650 mg NGT Q6H PRN PRN Reason: FEVER Last Admin: 05/11/18 22:29 Dose: 650 mg Albuterol/Ipratropium (Duoneb -) 1 amp NEB RQID [facility] Last Admin: 05/12/18 07:59 Dose: 1 amp Ascorbic Acid (Vitamin C Oral Solution -) 500 mg NGT DAILY [facility] Last Admin: 05/12/18 10:34 Dose: 500 mg Bacitracin (Bacitracin -) 1 applic TP BID [facility] Last Admin: 05/12/18 09:15 Dose: 1 applic Carbamazepine (Tegretol -) 100 mg NGT TID [facility] Last Admin: 05/12/18 14:20 Dose: 100 mg Clonazepam (Klonopin -) 1 mg NGT HS PRN PRN Reason: INSOMNIA Last Admin: 05/11/18 22:37 Dose: 1 mg Collagenase (Santyl -) 1 applic TP DAILY [facility]; Protocol Last Admin: 05/11/18 13:45 Dose: 1 applic Cyanocobalamin (Vitamin B12 -) 1,000 mcg NGT DAILY [facility] Last Admin: 05/12/18 10:32 Dose: 1,000 mcg Ferrous Sulfate (Feosol) 300 mg NGT DAILY [facility] Last Admin: 05/12/18 10:34 Dose: 300 mg Folic Acid (Folic Acid -) 1 mg NGT DAILY [facility] Last Admin: 05/12/18 10:32 Dose: 1 mg Hydralazine HCl (Apresoline -) 50 mg NGT TID [facility] Last Admin: 05/12/18 14:20 Dose: 50 mg Piperacillin Sod/Tazobactam (Sod 4.5 gm/ Dextrose) 100 mls @ 200 mls/hr IVPB Q8H-IV [facility]; Protocol Last Admin: 05/12/18 13:04 Dose: 200 mls/hr Lactobacillus Acidophilus (Bacid -) 1 tab NGT BID [facility] Last Admin: 05/12/18 10:32 Dose: 1 tab Levothyroxine Sodium (Synthroid Injection -) 37.5 mcg IVPUSH DAILY [facility] Last Admin: 05/12/18 13:00 Dose: 37.5 mcg Loperamide HCl (Imodium Liquid -) 1 mg NGT Q8H PRN PRN Reason: DIARRHEA Loratadine (Claritin -) 10 mg NGT DAILY [facility] Last Admin: 05/12/18 10:32 Dose: 10 mg Metoprolol Tartrate (Lopressor -) 50 mg NGT BID [facility] Last Admin: 05/12/18 10:32 Dose: 50 mg Mirtazapine (Remeron -) 7.5 mg NGT HS [facility] Last Admin: 05/11/18 22:22 Dose: 7.5 mg Nystatin/Triamcinolone Acetonide (Mycolog Ii Ointment -) 1 applic TP BID [facility] Last Admin: 05/12/18 10:26 Dose: 1 applic Pantoprazole Sodium (Protonix Iv) 40 mg IVPUSH BID [facility] Last Admin: 05/12/18 12:55 Dose: 40 mg Potassium Phos/Sodium Phos (Phos-Nak Packet -) 1 packet NGT DAILY [facility] Last Admin: 05/12/18 10:33 Dose: 1 packet Sertraline HCl (Zoloft -) 50 mg NGT DAILY [facility] Last Admin: 05/12/18 10:32 Dose: 50 mg Sodium Chloride (Sodium Chloride Tablet -) 1 gm NGT BID [facility] Last Admin: 05/12/18 10:36 Dose: 1 gm Zinc Sulfate (Orazinc -) 220 mg NGT DAILY [facility] Last Admin: 05/12/18 10:32 Dose: 220 mg 53 year old woman with hx of Multple Sclerosis, Hypertension, Hyperlipidemia, Hypothyrodism, trigeminal neualgia, hx of hyponatremia/SIADH who presented with low serum Na as an outpatient and admitted with acute worsening of serum Na. #Acute on Chronic hyponatremia likely due to SIADH #Multiple Sclerosis #Anemia #Hypertension #Small pleural effusion #Hypothyroidism serum sodium stable check BMP to monitor K and Mg levels and supplament as needed continue tube feeds but continue to limit total fluids to 1L daily Neurology follow up Thank you Tyshawn Doe DO
--- NOTE | 2018-05-12 16:15 | PN ---
Progress Note, OFFICE CLERK ASSISTANT - Note Progress Note: NGT feedings initiated and tolerated well per nursing. Selected Entries 05/12/18 05/12/18 05/12/18 02:00 06:00 11:19 Lunch NPO Temperature 98.7 F 100.2 F H 05/12/18 15:54 Lunch Temperature 97.8 F Laboratory Tests 05/09/18 05/11/18 07:35 06:20 WBC 16.2 H 6.8 Aspiration on Applesauce yesterday,immediately expelled from tracheostomy. Continue no PO feedings at this time. NGT feedings/HOB elevated. To reassess swallowing function Wednesday, MBS if stable. Consider PEG for nutritional intake/meds/hydration, hopefully as supplement to PO feedings if swallowing improves.
[2018-05-12 17:12] LABS: BASO % 0.3 % (0-2.0); EOS % 3.3 % (0-4.5); HEMATOCRIT 23.1 % (32.4-45.2); HEMOGLOBIN 7.7 GM/dL (10.7-15.3); LYMPH % 11.6 % (8-40); MCHC 33.2 g/dl (32.0-36.0); MEAN CELL VOLUME 96.5 fl (80-96); MEAN PLT VOLUME 8.2 fl (7.5-11.1); MONO % 12.1 % (3.8-10.2); NEUT % 72.7 % (42.8-82.8); PLATELET COUNT 226 K/MM3 (134-434); RBC 2.39 M/mm3 (3.60-5.2); WHITE BLOOD COUNT 6.5 K/mm3 (4.0-10.0)
[2018-05-12 17:29] LABS: ANION GAP 7 MMOL/L (8-16); BLOOD UREA NITROGEN 11 mg/dL (7-18); CALCIUM 8.2 mg/dL (8.5-10.1); CHLORIDE 104 mmol/L (98-107); CO2 30 mmol/L (21-32); CREATININE 0.5 mg/dL (0.55-1.3); GLUCOSE,RANDOM 104 mg/dL (74-106); POTASSIUM 3.5 mmol/L (3.5-5.1); SODIUM 142 mmol/L (136-145)
[2018-05-12] MEDS: COLLAGENASE CLOSTRIDIUM HIST. 30 GRAMS TUBE TP SCH (19:00)
[2018-05-12] MEDS: MIRTAZAPINE 15 MG TABLET (FP) NGT SCH (21:22)
[2018-05-13] MEDS ORDERED: DEXTROSE 5%-WATER 100 ML IVPB ONE ×3 (01:39→17:58)
[2018-05-13] MEDS ORDERED: PIPERACILLIN/TAZOBACTAM 4.5 GM VIAL IVPB ONE ×3 (01:39→17:58)
[2018-05-13] MEDS: PIPERACILLIN/TAZOB 4.5 GM 4.5 GM in DEXTROSE 5%-WATER 100 ML IVPB SCH ×2 (02:02→10:46)
[2018-05-13] MEDS: hydrALAZINE HCL 50 MG TABLET (FP) NGT SCH ×3 (06:38→22:00)
[2018-05-13] MEDS: carBAMazepine 100 MG TAB.CHEW NGT SCH ×3 (06:38→22:00)
[2018-05-13] MEDS: ALBUTEROL SO4 2.5/IPRATROPIUM 0.5 INH SOL 3 ML VIAL.NEB. NEB SCH ×4 (07:40→21:00)
[2018-05-13 07:52] LABS: BASO % 0.3 % (0-2.0); EOS % 2.9 % (0-4.5); HEMATOCRIT 21.5 % (32.4-45.2); HEMOGLOBIN 7.3 GM/dL (10.7-15.3); MCH 32.5 pg (25.7-33.7); MCHC 34.1 g/dl (32.0-36.0); MEAN CELL VOLUME 95.4 fl (80-96); MEAN PLT VOLUME 7.9 fl (7.5-11.1); MONO % 11.6 % (3.8-10.2); NEUT % 71.2 % (42.8-82.8); PLATELET COUNT 255 K/MM3 (134-434); RBC 2.26 M/mm3 (3.60-5.2); RDW 15.5 % (11.6-15.6); WHITE BLOOD COUNT 5.1 K/mm3 (4.0-10.0)
[2018-05-13 08:10] LABS: ALBUMIN 1.8 g/dl (3.4-5.0); ALK PHOS 144 U/L (45-117); ANION GAP 2 MMOL/L (8-16); BILIRUBIN,TOTAL 0.5 mg/dL (0.2-1); BLOOD UREA NITROGEN 11 mg/dL (7-18); CALCIUM 8.1 mg/dL (8.5-10.1); CHLORIDE 104 mmol/L (98-107); CO2 34 mmol/L (21-32); CREATININE 0.4 mg/dL (0.55-1.3); GLUCOSE,RANDOM 116 mg/dL (74-106); MAGNESIUM 1.9 mg/dL (1.8-2.4); POTASSIUM 3.4 mmol/L (3.5-5.1); SGOT/AST 30 U/L (15-37); SGPT/ALT 37 U/L (13-61); SODIUM 140 mmol/L (136-145); TOT PROT 5.9 g/dl (6.4-8.2)
[2018-05-13] MEDS ORDERED: PT OWN MED DRAWER 7, Y5N ONE ×3 (10:38→21:22)
[2018-05-13] MEDS: LORATADINE 10 MG TABLET NGT SCH (10:41)
[2018-05-13] MEDS: NAPH,MB-DB/K PH,MBDB POWDER PACKET NGT SCH (10:41)
[2018-05-13] MEDS: ZINC SULFATE 220 MG CAPSULE (FP) NGT SCH (10:41)
[2018-05-13] MEDS: FERROUS SO4 300 MG/5 ML ORAL SOLN UNIT DOSE CUPS NGT SCH (10:41)
[2018-05-13] MEDS: LACTOBACILLUS ACIDOPHILUS 1 TABLET NGT SCH ×2 (10:41→22:00)
[2018-05-13] MEDS: SERTRALINE HCL 50 MG TABLET (FP) NGT SCH (10:41)
[2018-05-13] MEDS: BACITRACIN 15 GM TUBE TOPICAL OINTMENT TP SCH ×2 (10:42→21:00)
[2018-05-13] MEDS: METOPROLOL TARTRATE 50 MG TABLET (FP) NGT SCH ×2 (10:43→22:00)
[2018-05-13] MEDS: ASCORBIC ACID 500 MG/5 ML UNIT DOSE CUP NGT SCH (10:43)
[2018-05-13] MEDS: FOLIC ACID 1 MG TABLET (FP) NGT SCH (10:43)
[2018-05-13] MEDS: CYANOCOBALAMIN 1,000 MCG TABLET (FP) NGT SCH (10:43)
[2018-05-13] MEDS: NYSTATIN/TRIAMCINOLONE TOPICAL OINTMENT 15 GM TUBE TP SCH ×2 (10:44→22:55)
[2018-05-13] MEDS: PANTOPRAZOLE SODIUM 40 MG VIAL IVPUSH SCH ×2 (10:44→22:00)
[2018-05-13] MEDS: MULTIVIT-MINERALS ORAL LIQUID NGT SCH (10:44)
[2018-05-13] MEDS: SODIUM CHLORIDE 1 GM TABLET NGT SCH (10:45)
[2018-05-13] MEDS: LEVOTHYROXINE SODIUM 100 MCG VIAL IVPUSH SCH (10:45)
--- NOTE | 2018-05-13 12:40 | PN ---
Progress Note (short form) - Note Progress Note: Renal follow up for Hyponatremia Pt seen and examined at the bedside awake and alert no acute complaints get tube feeds Vital Signs Temperature 98.9 F 05/13/18 09:59 Pulse Rate 72 05/13/18 09:59 Respiratory Rate 20 05/13/18 09:59 Blood Pressure 135/70 05/13/18 09:59 O2 Sat by Pulse Oximetry (%) 98 05/13/18 09:00 Intake & Output 05/10/18 05/11/18 05/12/18 05/13/18 23:59 23:59 23:59 23:59 Intake Total 1400 1600 1110 520 Output Total 1150 1450 950 250 Balance 250 150 160 270 NAD on vent via trach No edema in LE CBC, BMP 05/13/18 06:10 05/13/18 06:00 Current Medications Acetaminophen (Tylenol Oral Solution -) 650 mg NGT Q6H PRN PRN Reason: FEVER Last Admin: 05/11/18 22:29 Dose: 650 mg Albuterol/Ipratropium (Duoneb -) 1 amp NEB RQID [facility] Last Admin: 05/13/18 11:23 Dose: 1 amp Ascorbic Acid (Vitamin C Oral Solution -) 500 mg NGT DAILY [facility] Last Admin: 05/13/18 10:43 Dose: 500 mg Bacitracin (Bacitracin -) 1 applic TP BID [facility] Last Admin: 05/13/18 10:42 Dose: 1 applic Carbamazepine (Tegretol -) 100 mg NGT TID [facility] Last Admin: 05/13/18 06:38 Dose: 100 mg Clonazepam (Klonopin -) 1 mg NGT HS PRN PRN Reason: INSOMNIA Last Admin: 05/11/18 22:37 Dose: 1 mg Collagenase (Santyl -) 1 applic TP DAILY [facility]; Protocol Last Admin: 05/12/18 19:00 Dose: Not Given Cyanocobalamin (Vitamin B12 -) 1,000 mcg NGT DAILY [facility] Last Admin: 05/13/18 10:43 Dose: 1,000 mcg Ferrous Sulfate (Feosol) 300 mg NGT DAILY [facility] Last Admin: 05/13/18 10:41 Dose: 300 mg Folic Acid (Folic Acid -) 1 mg NGT DAILY [facility] Last Admin: 05/13/18 10:43 Dose: 1 mg Hydralazine HCl (Apresoline -) 50 mg NGT TID [facility] Last Admin: 05/13/18 06:38 Dose: 50 mg Piperacillin Sod/Tazobactam (Sod 4.5 gm/ Dextrose) 100 mls @ 200 mls/hr IVPB Q8H-IV [facility]; Protocol Last Admin: 05/13/18 10:46 Dose: 200 mls/hr Lactobacillus Acidophilus (Bacid -) 1 tab NGT BID [facility] Last Admin: 05/13/18 10:41 Dose: 1 tab Levothyroxine Sodium (Synthroid Injection -) 37.5 mcg IVPUSH DAILY [facility] Last Admin: 05/13/18 10:45 Dose: 37.5 mcg Loperamide HCl (Imodium Liquid -) 1 mg NGT Q8H PRN PRN Reason: DIARRHEA Loratadine (Claritin -) 10 mg NGT DAILY [facility] Last Admin: 05/13/18 10:41 Dose: 10 mg Metoprolol Tartrate (Lopressor -) 50 mg NGT BID [facility] Last Admin: 05/13/18 10:43 Dose: 50 mg Mirtazapine (Remeron -) 7.5 mg NGT HS [facility] Last Admin: 05/12/18 21:22 Dose: 7.5 mg Nystatin/Triamcinolone Acetonide (Mycolog Ii Ointment -) 1 applic TP BID [facility] Last Admin: 05/13/18 10:44 Dose: 1 applic Pantoprazole Sodium (Protonix Iv) 40 mg IVPUSH BID [facility] Last Admin: 05/13/18 10:44 Dose: 40 mg Potassium Phos/Sodium Phos (Phos-Nak Packet -) 1 packet NGT DAILY [facility] Last Admin: 05/13/18 10:41 Dose: 1 packet Sertraline HCl (Zoloft -) 50 mg NGT DAILY [facility] Last Admin: 05/13/18 10:41 Dose: 50 mg Sodium Chloride (Sodium Chloride Tablet -) 1 gm NGT DAILY [facility] Zinc Sulfate (Orazinc -) 220 mg NGT DAILY [facility] Last Admin: 05/13/18 10:41 Dose: 220 mg 53 year old woman with hx of Multple Sclerosis, Hypertension, Hyperlipidemia, Hypothyrodism, trigeminal neualgia, hx of hyponatremia/SIADH who presented with low serum Na as an outpatient and admitted with acute worsening of serum Na. #Acute on Chronic hyponatremia likely due to SIADH #Multiple Sclerosis #Anemia #Hypertension #Small pleural effusion #Hypothyroidism serum Na improved and stable decrease salt tabs to once daily continue fluid restriction continue supportive care goals of care being discussed Thank you Tyshawn Doe DO
--- NOTE | 2018-05-13 14:24 | PN ---
Progress Note (short form) - Note Progress Note: awake and alert trach to vent now with ngt Vital Signs Period Temp Pulse Resp BP Sys/Morillo Pulse Ox Last 24 Hr 97.8 F-99.2 F 64-84 12-22 114-147/56-84 98-98 cor-rrr lungs clear abd soft,nt ext no edema CBC, BMP 05/13/18 06:10 05/13/18 06:00 Microbiology 05/08/18 17:00 Blood - Peripheral Venous Blood Culture - Preliminary NO GROWTH OBTAINED AFTER 96 HOURS, INCUBATION TO CONTINUE FOR 1 DAYS. 05/08/18 17:00 Blood - Peripheral Venous Blood Culture - Preliminary NO GROWTH OBTAINED AFTER 96 HOURS, INCUBATION TO CONTINUE FOR 1 DAYS. 05/06/18 11:20 Blood - Peripheral Venous Blood Culture - Final NO GROWTH AFTER 5 DAYS INCUBATION 05/06/18 11:38 Blood - Peripheral Venous Blood Culture - Final NO GROWTH AFTER 5 DAYS INCUBATION 05/06/18 18:30 Sputum - Endotrachea Suction/Ventilator Gram Stain - Final 05/06/18 18:30 Sputum - Endotrachea Suction/Ventilator Sputum Culture - Final Pseudomonas Aeruginosa Serratia Marcescens Mr S Aureus 05/08/18 19:00 Urine - Urine Raza Legionella Antigen - Final 05/08/18 19:00 Urine - Urine Raza Streptococcus pneumoniae Antigen (M - Final 05/03/18 17:40 Blood - Peripheral Venous Blood Culture - Final NO GROWTH AFTER 5 DAYS INCUBATION 05/03/18 17:40 Blood - Peripheral Venous Blood Culture - Final NO GROWTH AFTER 5 DAYS INCUBATION 05/06/18 14:30 Urine - Urine Raza Urine Culture - Final Contaminated: Please Repeat 05/03/18 17:40 Urine - Urine Clean Catch Urine Culture - Final Contaminated: Please Repeat vanco trough-6 cxray increased RLL infiltrate, ?effusion imp/reccd fever RLL pneumonia vancomycin and zosyn day #5 clinically improved resume vancomycin continue zosyn respiratory failure chronic MS with functional quadraplegia Problem List - Problems (1) Leukocytosis Code(s): D72.829 - ELEVATED WHITE BLOOD CELL COUNT, UNSPECIFIED (2) Hyponatremia Code(s): E87.1 - HYPO-OSMOLALITY AND HYPONATREMIA (3) Chronic respiratory failure Code(s): J96.10 - CHRONIC RESPIRATORY FAILURE, UNSP W HYPOXIA OR HYPERCAPNIA (4) Functional 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
[2018-05-13 14:56] LABS: ALBUMIN 2.1 g/dl (3.4-5.0); ALK PHOS 170 U/L (45-117); BILIRUBIN,TOTAL 0.6 mg/dL (0.2-1); MAGNESIUM 1.6 mg/dL (1.8-2.4); PHOSPHOROUS 3.6 mg/dL (2.5-4.9); SGOT/AST 26 U/L (15-37); SGPT/ALT 35 U/L (13-61); TOT PROT 7.2 g/dl (6.4-8.2)
[2018-05-13 14:56] LABS: ALBUMIN 1.9 g/dl (3.4-5.0); ALK PHOS 166 U/L (45-117); BILIRUBIN,TOTAL 0.4 mg/dL (0.2-1); MAGNESIUM 1.7 mg/dL (1.8-2.4); PHOSPHOROUS 3.1 mg/dL (2.5-4.9); SGOT/AST 43 U/L (15-37); SGPT/ALT 42 U/L (13-61)
--- NOTE | 2018-05-13 15:05 | PN ---
Progress Note, Physician History of Present Illness: pulmonary more alert,on vent support on ac mode,-resp distress - Current Medication List Current Medications: Active Medications Acetaminophen (Tylenol Oral Solution -) 650 mg NGT Q6H PRN PRN Reason: FEVER Last Admin: 05/11/18 22:29 Dose: 650 mg Albuterol/Ipratropium (Duoneb -) 1 amp NEB RQID [facility] Last Admin: 05/13/18 11:23 Dose: 1 amp Ascorbic Acid (Vitamin C Oral Solution -) 500 mg NGT DAILY [facility] Last Admin: 05/13/18 10:43 Dose: 500 mg Bacitracin (Bacitracin -) 1 applic TP BID [facility] Last Admin: 05/13/18 10:42 Dose: 1 applic Carbamazepine (Tegretol -) 100 mg NGT TID [facility] Last Admin: 05/13/18 13:12 Dose: 100 mg Clonazepam (Klonopin -) 1 mg NGT HS PRN PRN Reason: INSOMNIA Last Admin: 05/11/18 22:37 Dose: 1 mg Collagenase (Santyl -) 1 applic TP DAILY [facility]; Protocol Last Admin: 05/12/18 19:00 Dose: Not Given Cyanocobalamin (Vitamin B12 -) 1,000 mcg NGT DAILY [facility] Last Admin: 05/13/18 10:43 Dose: 1,000 mcg Ferrous Sulfate (Feosol) 300 mg NGT DAILY [facility] Last Admin: 05/13/18 10:41 Dose: 300 mg Folic Acid (Folic Acid -) 1 mg NGT DAILY [facility] Last Admin: 05/13/18 10:43 Dose: 1 mg Hydralazine HCl (Apresoline -) 50 mg NGT TID [facility] Last Admin: 05/13/18 13:11 Dose: 50 mg Piperacillin Sod/Tazobactam (Sod 4.5 gm/ Dextrose) 100 mls @ 200 mls/hr IVPB Q8H-IV [facility]; Protocol Last Admin: 05/13/18 10:46 Dose: 200 mls/hr Vancomycin HCl 1,250 mg/ (Dextrose) 250 mls @ 250 mls/2 hr IVPB Q24H [facility]; Protocol Lactobacillus Acidophilus (Bacid -) 1 tab NGT BID [facility] Last Admin: 05/13/18 10:41 Dose: 1 tab Levothyroxine Sodium (Synthroid Injection -) 37.5 mcg IVPUSH DAILY [facility] Last Admin: 05/13/18 10:45 Dose: 37.5 mcg Loperamide HCl (Imodium Liquid -) 1 mg NGT Q8H PRN PRN Reason: DIARRHEA Loratadine (Claritin -) 10 mg NGT DAILY [facility] Last Admin: 05/13/18 10:41 Dose: 10 mg Metoprolol Tartrate (Lopressor -) 50 mg NGT BID [facility] Last Admin: 05/13/18 10:43 Dose: 50 mg Mirtazapine (Remeron -) 7.5 mg NGT HS [facility] Last Admin: 05/12/18 21:22 Dose: 7.5 mg Nystatin/Triamcinolone Acetonide (Mycolog Ii Ointment -) 1 applic TP BID [facility] Last Admin: 05/13/18 10:44 Dose: 1 applic Pantoprazole Sodium (Protonix Iv) 40 mg IVPUSH BID [facility] Last Admin: 05/13/18 10:44 Dose: 40 mg Potassium Phos/Sodium Phos (Phos-Nak Packet -) 1 packet NGT DAILY [facility] Last Admin: 05/13/18 10:41 Dose: 1 packet Sertraline HCl (Zoloft -) 50 mg NGT DAILY [facility] Last Admin: 05/13/18 10:41 Dose: 50 mg Sodium Chloride (Sodium Chloride Tablet -) 1 gm NGT DAILY [facility] Zinc Sulfate (Orazinc -) 220 mg NGT DAILY [facility] Last Admin: 05/13/18 10:41 Dose: 220 mg - Objective Vital Signs: Vital Signs Temperature 98.7 F 05/13/18 14:01 Pulse Rate 81 05/13/18 14:01 Respiratory Rate 18 05/13/18 14:01 Blood Pressure 116/67 05/13/18 14:01 O2 Sat by Pulse Oximetry (%) 98 05/13/18 13:36 Constitutional: Yes: Well Nourished, Calm Eyes: Yes: WNL HENT: Yes: WNL Neck: Yes: Supple (trach) Cardiovascular: Yes: Regular Rate and Rhythm, S1, S2 Respiratory: Yes: Rhonchi (scattered katarzyna rhonchi) Gastrointestinal: Yes: Normal Bowel Sounds, Soft Extremities: Yes: WNL Edema: Yes Labs: CBC, BMP 05/13/18 06:10 05/13/18 06:00 Problem List - Problems (1) Anemia Code(s): D64.9 - ANEMIA, UNSPECIFIED (2) Electrolyte imbalance Code(s): E87.8 - OTH DISORDERS OF ELECTROLYTE AND FLUID BALANCE, NEC (3) Functional 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 (4) Toxic metabolic encephalopathy Code(s): G92 - TOXIC ENCEPHALOPATHY (5) Acute on chronic respiratory failure with hypoxia and hypercapnia Code(s): J96.21 - ACUTE AND CHRONIC RESPIRATORY FAILURE WITH HYPOXIA; J96.22 - ACUTE AND CHRONIC RESPIRATORY FAILURE WITH HYPERCAPNIA (6) Failure to thrive Code(s): [id number] - (7) Functional quadriplegia Code(s): R53.2 - FUNCTIONAL QUADRIPLEGIA (8) Hx of multiple sclerosis Code(s): Z86.69 - PERSONAL HISTORY OF DIS OF THE NERVOUS SYS AND SENSE ORGANS (9) Hypokalemia Code(s): E87.6 - HYPOKALEMIA (10) Multiple sclerosis Code(s): G35 - MULTIPLE SCLEROSIS (11) Pneumonia Code(s): J18.9 - PNEUMONIA, UNSPECIFIED ORGANISM Qualifiers: Pneumonia type: pneumonia due to methicillin-resistant Staphylococcus aureus (MRSA) (12) Sacral decubitus ulcer, stage IV Code(s): L89.154 - PRESSURE ULCER OF SACRAL REGION, STAGE 4 (13) Status post tracheostomy Code(s): Z93.0 - TRACHEOSTOMY STATUS Assessment/Plan ASSESSMENT/PLAN: Suspected aspiration pneumonitis AMS due to Severe Hyponatremia corrected Toxic Metabolic Encephalopathy Functional Quadriplegia Multiple Sclerosis Trigeminal Neuralgia Acute on chronic respiratory failure HTN Hypothyroidism Depression Anxiety nutritional support Wean trials as tolerated Baclofen pump BD [place] ABX per ID DR ELDER
[2018-05-13] MEDS ORDERED: POTASSIUM CHLORIDE ORAL LIQUID 20 MEQ/15 ML NGT ONE (15:07)
--- NOTE | 2018-05-13 15:13 | PN ---
Progress Note, Physician Chief Complaint: patient awake alert has NG tube in place getting feds - Current Medication List Current Medications: Active Medications Acetaminophen (Tylenol Oral Solution -) 650 mg NGT Q6H PRN PRN Reason: FEVER Last Admin: 05/11/18 22:29 Dose: 650 mg Albuterol/Ipratropium (Duoneb -) [address] [facility] Last Admin: 05/13/18 11:23 Dose: 1 amp Ascorbic Acid (Vitamin C Oral Solution -) [address] [facility] Last Admin: 05/13/18 10:43 Dose: 500 mg Bacitracin (Bacitracin -) [address] [facility] Last Admin: 05/13/18 10:42 Dose: 1 applic Carbamazepine (Tegretol -) [address] [facility] Last Admin: 05/13/18 13:12 Dose: 100 mg Clonazepam (Klonopin -) 1 mg NGT HS PRN PRN Reason: INSOMNIA Last Admin: 05/11/18 22:37 Dose: 1 mg Collagenase (Santyl -) [address] [facility]; Protocol Last Admin: 05/12/18 19:00 Dose: Not Given Cyanocobalamin (Vitamin B12 -) 1,[address] [facility] Last Admin: 05/13/18 10:43 Dose: 1,000 mcg Ferrous Sulfate (Feosol) [address] [facility] Last Admin: 05/13/18 10:41 Dose: 300 mg Folic Acid (Folic Acid -) [address] [facility] Last Admin: 05/13/18 10:43 Dose: 1 mg Hydralazine HCl (Apresoline -) [address] [facility] Last Admin: 05/13/18 13:11 Dose: 50 mg Piperacillin Sod/Tazobactam (Sod 4.5 gm/ Dextrose) 100 mls @ 200 mls/hr IVPB Q8H-IV [facility]; Protocol Last Admin: 05/13/18 10:46 Dose: 200 mls/hr Vancomycin HCl 1,250 mg/ (Dextrose) 250 mls @ 250 mls/2 hr IVPB Q24H [facility]; Protocol Lactobacillus Acidophilus (Bacid -) [address] [facility] Last Admin: 05/13/18 10:41 Dose: 1 tab Levothyroxine Sodium (Synthroid Injection -) 37.[address] [facility] Last Admin: 05/13/18 10:45 Dose: 37.5 mcg Loperamide HCl (Imodium Liquid -) 1 mg NGT Q8H PRN PRN Reason: DIARRHEA Loratadine (Claritin -) [address] [facility] Last Admin: 05/13/18 10:41 Dose: 10 mg Metoprolol Tartrate (Lopressor -) [address] [facility] Last Admin: 05/13/18 10:43 Dose: 50 mg Mirtazapine (Remeron -) 7.[address] [facility] Last Admin: 05/12/18 21:22 Dose: 7.5 mg Nystatin/Triamcinolone Acetonide (Mycolog Ii Ointment -) [address] [facility] Last Admin: 05/13/18 10:44 Dose: 1 applic Pantoprazole Sodium (Protonix Iv) [address] [facility] Last Admin: 05/13/18 10:44 Dose: 40 mg Potassium Chloride (Potassium Chloride Oral Liquid) 20 meq NGT ONCE ONE Stop: 05/13/18 15:08 Potassium Phos/Sodium Phos (Phos-Nak Packet -) [address] [facility] Last Admin: 05/13/18 10:41 Dose: 1 packet Sertraline HCl (Zoloft -) [address] [facility] Last Admin: 05/13/18 10:41 Dose: 50 mg Sodium Chloride (Sodium Chloride Tablet -) [address] [facility] Zinc Sulfate (Orazinc -) [address] [facility] Last Admin: 05/13/18 10:41 Dose: 220 mg - Objective Vital Signs: Vital Signs Temperature 98.7 F 05/13/18 14:01 Pulse Rate 81 05/13/18 14:01 Respiratory Rate 18 05/13/18 14:01 Blood Pressure 116/67 05/13/18 14:01 O2 Sat by Pulse Oximetry (%) 98 05/13/18 13:36 Constitutional: Yes: Calm HENT: Yes: Other (NG tube) Neck: Yes: Other (trach) Cardiovascular: Yes: Regular Rate and Rhythm, S1, S2 Respiratory: Yes: Mechanically Ventilated Gastrointestinal: Yes: Normal Bowel Sounds, Soft, Other Genitourinary: Yes: Perera Present Neurological: Yes: Alert, Pre-Existing Deficit Labs: CBC, BMP 05/13/18 06:10 05/13/18 06:00 Problem List - Problems (1) Hyponatremia Assessment/Plan: sodium is 135 now is 140 ng tube placed for tube feeds Code(s): E87.1 - HYPO-OSMOLALITY AND HYPONATREMIA (2) Anemia Assessment/Plan: repeat cbc ordered on ferrous sulfate dara give prbc Code(s): D64.9 - ANEMIA, UNSPECIFIED (3) Hypothyroid Assessment/Plan: will switch back to synthroid 100mcg via ng tube daily Code(s): E03.9 - HYPOTHYROIDISM, UNSPECIFIED (4) Hyperkalemia Assessment/Plan: improved now hypokalemia -repleted Code(s): E87.5 - HYPERKALEMIA (5) Hx of multiple sclerosis Assessment/Plan: vent support appreciate neurology note dvt ppx NG tube placed by IR for aspiration Code(s): Z86.69 - PERSONAL HISTORY OF DIS OF THE NERVOUS SYS AND SENSE ORGANS (6) Electrolyte imbalance Assessment/Plan: repeat labs ordered Code(s): E87.8 - OTH DISORDERS OF ELECTROLYTE AND FLUID BALANCE, NEC (7) Functional quadriplegia secondary to MS Assessment/Plan: perera frequent turn positon dr jeffries- wound consult noted dvt ppx pallitive care team Code(s): G35 - MULTIPLE SCLEROSIS; R53.2 - FUNCTIONAL QUADRIPLEGIA (8) Insomnia Assessment/Plan: in the hospital will give clonazzepam at night that what she takes at home and put her on the vent at night and in the morning till she is fully awake Code(s): G47.00 - INSOMNIA, UNSPECIFIED (9) Pneumonia Assessment/Plan: RLL on zosyn Code(s): J18.9 - PNEUMONIA, UNSPECIFIED ORGANISM Qualifiers: Pneumonia type: pneumonia due to methicillin-resistant Staphylococcus aureus (MRSA)
[2018-05-13] MEDS: COLLAGENASE CLOSTRIDIUM HIST. 30 GRAMS TUBE TP SCH (15:14)
--- NOTE | 2018-05-13 15:25 | PN ---
Progress Note (short form) - Note Progress Note: 53 year old patient known to me for MS, multiple Grade IV decubitii including Right and Left Ischial On Wednesday Right Ischial decubitus was debrided, necrotic was partially excised, patient general condition was poor , Respiratory condition was not stable Thus superficial necrotic was removed with #10 blade Plan Continue Collagenase ointment for chemical debridement , Relief of pressure Nutrition /NG feeding is essential for wounds to heal Patient is Functional Quadriplegic , requiring total care Wounds were measured and documented
[2018-05-13] MEDS: VANCOMYCIN HCL 1,250 MG in DEXTROSE 5%-WATER - 250 ML IVPB SCH (16:21)
[2018-05-13] MEDS: MIRTAZAPINE 15 MG TABLET (FP) NGT SCH (22:00)
[2018-05-14] MEDS ORDERED: PIPERACILLIN/TAZOBACTAM 4.5 GM VIAL IVPB ONE ×3 (01:10→17:06)
[2018-05-14] MEDS ORDERED: DEXTROSE 5%-WATER 100 ML IVPB ONE ×3 (01:11→17:06)
[2018-05-14] MEDS: PIPERACILLIN/TAZOB 4.5 GM 4.5 GM in DEXTROSE 5%-WATER 100 ML IVPB SCH ×4 (01:35→17:15)
[2018-05-14] MEDS: hydrALAZINE HCL 50 MG TABLET (FP) NGT SCH ×3 (06:42→21:12)
[2018-05-14] MEDS: carBAMazepine 100 MG TAB.CHEW NGT SCH ×3 (06:43→21:12)
[2018-05-14] MEDS: LEVOTHYROXINE NA 100 MCG TABLET (FP) NGT SCH (06:45)
[2018-05-14] MEDS ORDERED: PT OWN MED DRAWER 7, Y5N ONE ×4 (06:50→18:30)
[2018-05-14] MEDS: ALBUTEROL SO4 2.5/IPRATROPIUM 0.5 INH SOL 3 ML VIAL.NEB. NEB SCH ×4 (07:20→20:51)
[2018-05-14 09:03] LABS: BASO % 0.2 % (0-2.0); EOS % 3.1 % (0-4.5); HEMATOCRIT 24.7 % (32.4-45.2); HEMOGLOBIN 8.2 GM/dL (10.7-15.3); LYMPH % 14.6 % (8-40); MCH 31.1 pg (25.7-33.7); MCHC 33.2 g/dl (32.0-36.0); MEAN CELL VOLUME 93.7 fl (80-96); MEAN PLT VOLUME 7.7 fl (7.5-11.1); MONO % 10.4 % (3.8-10.2); NEUT % 71.7 % (42.8-82.8); PLATELET COUNT 304 K/MM3 (134-434); RBC 2.64 M/mm3 (3.60-5.2); RDW 16.3 % (11.6-15.6); WHITE BLOOD COUNT 6.2 K/mm3 (4.0-10.0)
[2018-05-14] MEDS: PANTOPRAZOLE SODIUM 40 MG VIAL IVPUSH SCH ×2 (09:40→23:08)
[2018-05-14] MEDS: FERROUS SO4 300 MG/5 ML ORAL SOLN UNIT DOSE CUPS NGT SCH (09:40)
[2018-05-14] MEDS: CYANOCOBALAMIN 1,000 MCG TABLET (FP) NGT SCH (09:41)
[2018-05-14] MEDS: FOLIC ACID 1 MG TABLET (FP) NGT SCH (09:41)
[2018-05-14] MEDS: METOPROLOL TARTRATE 50 MG TABLET (FP) NGT SCH ×2 (09:41→21:12)
[2018-05-14] MEDS: SERTRALINE HCL 50 MG TABLET (FP) NGT SCH (09:41)
[2018-05-14] MEDS: ZINC SULFATE 220 MG CAPSULE (FP) NGT SCH (09:41)
[2018-05-14] MEDS: LORATADINE 10 MG TABLET NGT SCH (09:41)
[2018-05-14] MEDS: LACTOBACILLUS ACIDOPHILUS 1 TABLET NGT SCH ×2 (09:41→21:13)
[2018-05-14] MEDS: NAPH,MB-DB/K PH,MBDB POWDER PACKET NGT SCH (09:41)
[2018-05-14] MEDS: SODIUM CHLORIDE 1 GM TABLET NGT SCH (09:42)
[2018-05-14] MEDS: BACITRACIN 15 GM TUBE TOPICAL OINTMENT TP SCH ×2 (09:42→21:13)
[2018-05-14] MEDS: ASCORBIC ACID 500 MG/5 ML UNIT DOSE CUP NGT SCH (09:42)
[2018-05-14] MEDS: MULTIVIT-MINERALS ORAL LIQUID NGT SCH (09:43)
[2018-05-14 10:14] LABS: ALK PHOS 150 U/L (45-117); ANION GAP 2 MMOL/L (8-16); BILIRUBIN,TOTAL 0.4 mg/dL (0.2-1); BLOOD UREA NITROGEN 12 mg/dL (7-18); CALCIUM 8.5 mg/dL (8.5-10.1); CHLORIDE 102 mmol/L (98-107); CO2 36 mmol/L (21-32); CREATININE 0.6 mg/dL (0.55-1.3); GLUCOSE,RANDOM 100 mg/dL (74-106); MAGNESIUM 2.1 mg/dL (1.8-2.4); POTASSIUM 4.3 mmol/L (3.5-5.1); SGOT/AST 18 U/L (15-37); SGPT/ALT 27 U/L (13-61); SODIUM 140 mmol/L (136-145); TOT PROT 6.4 g/dl (6.4-8.2)
--- NOTE | 2018-05-14 11:42 | PN ---
Progress Note (short form) - Note Progress Note: Renal follow up for Hyponatremia Pt seen and examined at the bedside on vent awake and alert has diarrhea no confusion or lethargy Vital Signs Temperature 98.9 F 05/14/18 06:00 Pulse Rate 78 05/14/18 09:14 Respiratory Rate 14 05/14/18 10:30 Blood Pressure 97/57 L 05/14/18 06:00 O2 Sat by Pulse Oximetry (%) 98 05/14/18 08:15 NAD on vent via trach No edema in LE CBC, BMP 05/14/18 08:00 05/14/18 08:00 Current Medications Acetaminophen (Tylenol Oral Solution -) 650 mg NGT Q6H PRN PRN Reason: FEVER Last Admin: 05/11/18 22:29 Dose: 650 mg Albuterol/Ipratropium (Duoneb -) 1 amp NEB RQID [facility] Last Admin: 05/14/18 11:35 Dose: 1 amp Ascorbic Acid (Vitamin C Oral Solution -) 500 mg NGT DAILY [facility] Last Admin: 05/14/18 09:42 Dose: 500 mg Bacitracin (Bacitracin -) 1 applic TP BID [facility] Last Admin: 05/14/18 09:42 Dose: 1 applic Carbamazepine (Tegretol -) 100 mg NGT TID [facility] Last Admin: 05/14/18 06:43 Dose: 100 mg Clonazepam (Klonopin -) 1 mg NGT HS PRN PRN Reason: INSOMNIA Last Admin: 05/11/18 22:37 Dose: 1 mg Collagenase (Santyl -) 1 applic TP DAILY [facility]; Protocol Last Admin: 05/13/18 15:14 Dose: 1 applic Cyanocobalamin (Vitamin B12 -) 1,000 mcg NGT DAILY [facility] Last Admin: 05/14/18 09:41 Dose: 1,000 mcg Ferrous Sulfate (Feosol) 300 mg NGT DAILY [facility] Last Admin: 05/14/18 09:40 Dose: 300 mg Folic Acid (Folic Acid -) 1 mg NGT DAILY [facility] Last Admin: 05/14/18 09:41 Dose: 1 mg Hydralazine HCl (Apresoline -) 50 mg NGT TID [facility] Last Admin: 05/14/18 06:42 Dose: Not Given Piperacillin Sod/Tazobactam (Sod 4.5 gm/ Dextrose) 100 mls @ 200 mls/hr IVPB Q8H-IV [facility]; Protocol Last Admin: 05/14/18 09:41 Dose: 200 mls/hr Vancomycin HCl 1,250 mg/ (Dextrose) 250 mls @ 250 mls/2 hr IVPB Q24H [facility]; Protocol Last Admin: 05/13/18 16:21 Dose: 250 mls/2 hr Lactobacillus Acidophilus (Bacid -) 1 tab NGT BID [facility] Last Admin: 05/14/18 09:41 Dose: 1 tab Levothyroxine Sodium (Synthroid -) 100 mcg NGT DAILY@0700 [facility] Last Admin: 05/14/18 06:45 Dose: 100 mcg Loperamide HCl (Imodium Liquid -) 1 mg NGT Q8H PRN PRN Reason: DIARRHEA Loratadine (Claritin -) 10 mg NGT DAILY [facility] Last Admin: 05/14/18 09:41 Dose: 10 mg Metoprolol Tartrate (Lopressor -) 50 mg NGT BID [facility] Last Admin: 05/14/18 09:41 Dose: 50 mg Mirtazapine (Remeron -) 7.5 mg NGT HS [facility] Last Admin: 05/13/18 22:00 Dose: 7.5 mg Nystatin/Triamcinolone Acetonide (Mycolog Ii Ointment -) 1 applic TP BID [facility] Last Admin: 05/13/18 22:55 Dose: 1 applic Pantoprazole Sodium (Protonix Iv) 40 mg IVPUSH BID [facility] Last Admin: 05/14/18 09:40 Dose: 40 mg Potassium Phos/Sodium Phos (Phos-Nak Packet -) 1 packet NGT DAILY [facility] Last Admin: 05/14/18 09:41 Dose: 1 packet Sertraline HCl (Zoloft -) 50 mg NGT DAILY [facility] Last Admin: 05/14/18 09:41 Dose: 50 mg Sodium Chloride (Sodium Chloride Tablet -) 1 gm NGT DAILY [facility] Last Admin: 05/14/18 09:42 Dose: 1 gm Zinc Sulfate (Orazinc -) 220 mg NGT DAILY [facility] Last Admin: 05/14/18 09:41 Dose: 220 mg 53 year old woman with hx of Multple Sclerosis, Hypertension, Hyperlipidemia, Hypothyrodism, trigeminal neualgia, hx of hyponatremia/SIADH who presented with low serum Na as an outpatient and admitted with acute worsening of serum Na. #Acute on Chronic hyponatremia likely due to SIADH #Multiple Sclerosis #Anemia #Hypertension #Small pleural effusion #Hypothyroidism Serum Na stable continue salt tabs and fluid restriction continue Abx as per ID Trend electrolytes daily Thank you Tyshawn Doe DO
[2018-05-14] MEDS ORDERED: FUROSEMIDE 40 MG/4 ML INJECTABLE VIAL IVPUSH ONE (12:07)
--- NOTE | 2018-05-14 12:09 | PN ---
Progress Note, Physician - Current Medication List Current Medications: Active Medications Acetaminophen (Tylenol Oral Solution -) 650 mg NGT Q6H PRN PRN Reason: FEVER Last Admin: 05/11/18 22:29 Dose: 650 mg Albuterol/Ipratropium (Duoneb -) 1 amp NEB RQID [facility] Last Admin: 05/14/18 11:35 Dose: 1 amp Ascorbic Acid (Vitamin C Oral Solution -) 500 mg NGT DAILY [facility] Last Admin: 05/14/18 09:42 Dose: 500 mg Bacitracin (Bacitracin -) 1 applic TP BID [facility] Last Admin: 05/14/18 09:42 Dose: 1 applic Carbamazepine (Tegretol -) 100 mg NGT TID [facility] Last Admin: 05/14/18 06:43 Dose: 100 mg Clonazepam (Klonopin -) 1 mg NGT HS PRN PRN Reason: INSOMNIA Last Admin: 05/11/18 22:37 Dose: 1 mg Collagenase (Santyl -) 1 applic TP DAILY [facility]; Protocol Last Admin: 05/13/18 15:14 Dose: 1 applic Cyanocobalamin (Vitamin B12 -) 1,000 mcg NGT DAILY [facility] Last Admin: 05/14/18 09:41 Dose: 1,000 mcg Ferrous Sulfate (Feosol) 300 mg NGT DAILY [facility] Last Admin: 05/14/18 09:40 Dose: 300 mg Folic Acid (Folic Acid -) 1 mg NGT DAILY [facility] Last Admin: 05/14/18 09:41 Dose: 1 mg Furosemide (Lasix Injection -) 40 mg IVPUSH ONCE ONE Stop: 05/14/18 12:08 Hydralazine HCl (Apresoline -) 50 mg NGT TID [facility] Last Admin: 05/14/18 06:42 Dose: Not Given Piperacillin Sod/Tazobactam (Sod 4.5 gm/ Dextrose) 100 mls @ 200 mls/hr IVPB Q8H-IV [facility]; Protocol Last Admin: 05/14/18 09:41 Dose: 200 mls/hr Vancomycin HCl 1,250 mg/ (Dextrose) 250 mls @ 250 mls/2 hr IVPB Q24H [facility]; Protocol Last Admin: 05/13/18 16:21 Dose: 250 mls/2 hr Lactobacillus Acidophilus (Bacid -) 1 tab NGT BID [facility] Last Admin: 05/14/18 09:41 Dose: 1 tab Levothyroxine Sodium (Synthroid -) 100 mcg NGT DAILY@0700 [facility] Last Admin: 05/14/18 06:45 Dose: 100 mcg Loperamide HCl (Imodium Liquid -) 1 mg NGT Q8H PRN PRN Reason: DIARRHEA Loratadine (Claritin -) 10 mg NGT DAILY [facility] Last Admin: 05/14/18 09:41 Dose: 10 mg Metoprolol Tartrate (Lopressor -) 50 mg NGT BID [facility] Last Admin: 05/14/18 09:41 Dose: 50 mg Mirtazapine (Remeron -) 7.5 mg NGT HS [facility] Last Admin: 05/13/18 22:00 Dose: 7.5 mg Nystatin/Triamcinolone Acetonide (Mycolog Ii Ointment -) 1 applic TP BID [facility] Last Admin: 05/13/18 22:55 Dose: 1 applic Pantoprazole Sodium (Protonix Iv) 40 mg IVPUSH BID [facility] Last Admin: 05/14/18 09:40 Dose: 40 mg Potassium Phos/Sodium Phos (Phos-Nak Packet -) 1 packet NGT DAILY [facility] Last Admin: 05/14/18 09:41 Dose: 1 packet Sertraline HCl (Zoloft -) 50 mg NGT DAILY [facility] Last Admin: 05/14/18 09:41 Dose: 50 mg Sodium Chloride (Sodium Chloride Tablet -) 1 gm NGT DAILY [facility] Last Admin: 05/14/18 09:42 Dose: 1 gm Zinc Sulfate (Orazinc -) 220 mg NGT DAILY [facility] Last Admin: 05/14/18 09:41 Dose: 220 mg - Objective Vital Signs: Vital Signs Temperature 98.9 F 05/14/18 06:00 Pulse Rate 78 05/14/18 09:14 Respiratory Rate 14 05/14/18 10:30 Blood Pressure 97/57 L 05/14/18 06:00 O2 Sat by Pulse Oximetry (%) 98 05/14/18 08:15 Cardiovascular: Yes: S1, S2 Respiratory: Yes: Mechanically Ventilated Gastrointestinal: Yes: Normal Bowel Sounds, Soft Labs: CBC, BMP 05/14/18 08:00 05/14/18 08:00 Problem List - Problems (1) Hyponatremia Code(s): E87.1 - HYPO-OSMOLALITY AND HYPONATREMIA (2) Anemia Code(s): D64.9 - ANEMIA, UNSPECIFIED Qualifiers: Other causes of anemia: other cause, not classified (3) Chronic respiratory failure Code(s): J96.10 - CHRONIC RESPIRATORY FAILURE, UNSP W HYPOXIA OR HYPERCAPNIA (4) Functional quadriplegia Code(s): R53.2 - FUNCTIONAL QUADRIPLEGIA (5) Hypothyroid Code(s): E03.9 - HYPOTHYROIDISM, UNSPECIFIED (6) Multiple sclerosis Code(s): G35 - MULTIPLE SCLEROSIS (7) Decubital ulcer Code(s): L89.90 - PRESSURE ULCER OF UNSPECIFIED SITE, UNSPECIFIED STAGE Qualifiers: Pressure injury location: unspecified location Pressure injury stage: unspecified pressure injury stage Qualified Code(s): L89.90 - Pressure ulcer of unspecified site, unspecified stage (8) Abnormal LFTs Code(s): R94.5 - ABNORMAL RESULTS OF LIVER FUNCTION STUDIES Assessment/Plan - Problems (1) Hyponatremia Assessment/Plan: sodium is 135 now is 140 ng tube placed for tube feeds Code(s): E87.1 - HYPO-OSMOLALITY AND HYPONATREMIA (2) Anemia Assessment/Plan: repeat cbc ordered on ferrous sulfate dara give prbc Code(s): D64.9 - ANEMIA, UNSPECIFIED (3) Hypothyroid Assessment/Plan: will switch back to synthroid 100mcg via ng tube daily Code(s): E03.9 - HYPOTHYROIDISM, UNSPECIFIED (4) Hyperkalemia Assessment/Plan: improved now hypokalemia -repleted Code(s): E87.5 - HYPERKALEMIA (5) Hx of multiple sclerosis Assessment/Plan: vent support appreciate neurology note dvt ppx NG tube placed by IR for aspiration Code(s): Z86.69 - PERSONAL HISTORY OF DIS OF THE NERVOUS SYS AND SENSE ORGANS (6) Electrolyte imbalance Assessment/Plan: repeat labs ordered Code(s): E87.8 - OTH DISORDERS OF ELECTROLYTE AND FLUID BALANCE, NEC (7) Functional quadriplegia secondary to MS Assessment/Plan: perera frequent turn positon dr jeffries- wound consult noted dvt ppx pallitive care team Code(s): G35 - MULTIPLE SCLEROSIS; R53.2 - FUNCTIONAL QUADRIPLEGIA (8) Insomnia Assessment/Plan: in the hospital will give clonazzepam at night that what she takes at home and put her on the vent at night and in the morning till she is fully awake Code(s): G47.00 - INSOMNIA, UNSPECIFIED (9) Pneumonia Assessment/Plan: RLL on zosyn Code(s): J18.9 - PNEUMONIA, UNSPECIFIED ORGANISM Qualifiers: Pneumonia type: pneumonia due to methicillin-resistant Staphylococcus aureus (MRSA)
[2018-05-14] MEDS: COLLAGENASE CLOSTRIDIUM HIST. 30 GRAMS TUBE TP SCH (12:24)
[2018-05-14] MEDS: NYSTATIN/TRIAMCINOLONE TOPICAL OINTMENT 15 GM TUBE TP SCH ×2 (12:25→23:08)
--- NOTE | 2018-05-14 12:54 | PN ---
Progress Note, Physician History of Present Illness: PULMONARY ALERT,FEELING BETTER ON VENT SUPPORT ON AC MODE.PT TOLERATING NGT FEEDING - Current Medication List Current Medications: Active Medications Acetaminophen (Tylenol Oral Solution -) 650 mg NGT Q6H PRN PRN Reason: FEVER Last Admin: 05/11/18 22:29 Dose: 650 mg Albuterol/Ipratropium (Duoneb -) 1 amp NEB RQID [facility] Last Admin: 05/14/18 11:35 Dose: 1 amp Ascorbic Acid (Vitamin C Oral Solution -) 500 mg NGT DAILY [facility] Last Admin: 05/14/18 09:42 Dose: 500 mg Bacitracin (Bacitracin -) 1 applic TP BID [facility] Last Admin: 05/14/18 09:42 Dose: 1 applic Carbamazepine (Tegretol -) 100 mg NGT TID [facility] Last Admin: 05/14/18 06:43 Dose: 100 mg Clonazepam (Klonopin -) 1 mg NGT HS PRN PRN Reason: INSOMNIA Last Admin: 05/11/18 22:37 Dose: 1 mg Collagenase (Santyl -) 1 applic TP DAILY [facility]; Protocol Last Admin: 05/14/18 12:24 Dose: 1 applic Cyanocobalamin (Vitamin B12 -) 1,000 mcg NGT DAILY [facility] Last Admin: 05/14/18 09:41 Dose: 1,000 mcg Ferrous Sulfate (Feosol) 300 mg NGT DAILY [facility] Last Admin: 05/14/18 09:40 Dose: 300 mg Folic Acid (Folic Acid -) 1 mg NGT DAILY [facility] Last Admin: 05/14/18 09:41 Dose: 1 mg Hydralazine HCl (Apresoline -) 50 mg NGT TID [facility] Last Admin: 05/14/18 06:42 Dose: Not Given Piperacillin Sod/Tazobactam (Sod 4.5 gm/ Dextrose) 100 mls @ 200 mls/hr IVPB Q8H-IV [facility]; Protocol Last Admin: 05/14/18 09:41 Dose: 200 mls/hr Vancomycin HCl 1,250 mg/ (Dextrose) 250 mls @ 250 mls/2 hr IVPB Q24H [facility]; Protocol Last Admin: 05/13/18 16:21 Dose: 250 mls/2 hr Lactobacillus Acidophilus (Bacid -) 1 tab NGT BID [facility] Last Admin: 05/14/18 09:41 Dose: 1 tab Levothyroxine Sodium (Synthroid -) 100 mcg NGT DAILY@0700 [facility] Last Admin: 05/14/18 06:45 Dose: 100 mcg Loperamide HCl (Imodium Liquid -) 1 mg NGT Q8H PRN PRN Reason: DIARRHEA Loratadine (Claritin -) 10 mg NGT DAILY [facility] Last Admin: 05/14/18 09:41 Dose: 10 mg Metoprolol Tartrate (Lopressor -) 50 mg NGT BID [facility] Last Admin: 05/14/18 09:41 Dose: 50 mg Mirtazapine (Remeron -) 7.5 mg NGT HS [facility] Last Admin: 05/13/18 22:00 Dose: 7.5 mg Nystatin/Triamcinolone Acetonide (Mycolog Ii Ointment -) 1 applic TP BID [facility] Last Admin: 05/14/18 12:25 Dose: Not Given Pantoprazole Sodium (Protonix Iv) 40 mg IVPUSH BID [facility] Last Admin: 05/14/18 09:40 Dose: 40 mg Potassium Phos/Sodium Phos (Phos-Nak Packet -) 1 packet NGT DAILY [facility] Last Admin: 05/14/18 09:41 Dose: 1 packet Sertraline HCl (Zoloft -) 50 mg NGT DAILY [facility] Last Admin: 05/14/18 09:41 Dose: 50 mg Sodium Chloride (Sodium Chloride Tablet -) 1 gm NGT DAILY [facility] Last Admin: 05/14/18 09:42 Dose: 1 gm Zinc Sulfate (Orazinc -) 220 mg NGT DAILY [facility] Last Admin: 05/14/18 09:41 Dose: 220 mg - Objective Vital Signs: Vital Signs Temperature 98.9 F 05/14/18 06:00 Pulse Rate 78 05/14/18 09:14 Respiratory Rate 14 05/14/18 10:30 Blood Pressure 97/57 L 05/14/18 06:00 O2 Sat by Pulse Oximetry (%) 98 05/14/18 08:15 Constitutional: Yes: Well Nourished, Calm Eyes: Yes: WNL HENT: Yes: WNL Neck: Yes: Supple (TRACH) Cardiovascular: Yes: Regular Rate and Rhythm, S1, S2 Respiratory: Yes: Rhonchi (SCATTERED RHONCHI) Gastrointestinal: Yes: Normal Bowel Sounds, Soft Extremities: Yes: WNL Edema: Yes Labs: CBC, BMP 05/14/18 08:00 05/14/18 08:00 Problem List - Problems (1) Anemia Code(s): D64.9 - ANEMIA, UNSPECIFIED (2) Electrolyte imbalance Code(s): E87.8 - OTH DISORDERS OF ELECTROLYTE AND FLUID BALANCE, NEC (3) Functional 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 (4) Toxic metabolic encephalopathy Code(s): G92 - TOXIC ENCEPHALOPATHY (5) Acute on chronic respiratory failure with hypoxia and hypercapnia Code(s): J96.21 - ACUTE AND CHRONIC RESPIRATORY FAILURE WITH HYPOXIA; J96.22 - ACUTE AND CHRONIC RESPIRATORY FAILURE WITH HYPERCAPNIA (6) Failure to thrive Code(s): VAT6450 - (7) Functional quadriplegia Code(s): R53.2 - FUNCTIONAL QUADRIPLEGIA (8) Hx of multiple sclerosis Code(s): Z86.69 - PERSONAL HISTORY OF DIS OF THE NERVOUS SYS AND SENSE ORGANS (9) Hypokalemia Code(s): E87.6 - HYPOKALEMIA (10) Multiple sclerosis Code(s): G35 - MULTIPLE SCLEROSIS (11) Pneumonia Code(s): J18.9 - PNEUMONIA, UNSPECIFIED ORGANISM Qualifiers: Pneumonia type: pneumonia due to methicillin-resistant Staphylococcus aureus (MRSA) (12) Sacral decubitus ulcer, stage IV Code(s): L89.154 - PRESSURE ULCER OF SACRAL REGION, STAGE 4 (13) Status post tracheostomy Code(s): Z93.0 - TRACHEOSTOMY STATUS Assessment/Plan ASSESSMENT/PLAN: Suspected aspiration pneumonitis AMS due to Severe Hyponatremia corrected Toxic Metabolic Encephalopathy Functional Quadriplegia Multiple Sclerosis Trigeminal Neuralgia Acute on chronic respiratory failure HTN Hypothyroidism Depression Anxiety nutritional support Wean trials as tolerated BD TX ABX per ID DR ELDER
[2018-05-14] MEDS: VANCOMYCIN HCL 1,250 MG in DEXTROSE 5%-WATER - 250 ML IVPB SCH (14:16)
[2018-05-14] MEDS: LOPERAMIDE HCL 1 MG/5 ML UNIT DOSE CUP NGT PRN (20:43)
[2018-05-14] MEDS: MIRTAZAPINE 15 MG TABLET (FP) NGT SCH (21:13)
[2018-05-15] MEDS ORDERED: DEXTROSE 5%-WATER 100 ML IVPB ONE ×3 (00:52→17:22)
[2018-05-15] MEDS ORDERED: PIPERACILLIN/TAZOBACTAM 4.5 GM VIAL IVPB ONE ×3 (00:52→17:22)
[2018-05-15] MEDS: PIPERACILLIN/TAZOB 4.5 GM 4.5 GM in DEXTROSE 5%-WATER 100 ML IVPB SCH ×3 (03:07→17:58)
[2018-05-15] MEDS: ALBUTEROL SO4 2.5/IPRATROPIUM 0.5 INH SOL 3 ML VIAL.NEB. NEB SCH ×4 (05:00→21:00)
[2018-05-15] MEDS: LOPERAMIDE HCL 1 MG/5 ML UNIT DOSE CUP NGT PRN (06:18)
[2018-05-15] MEDS: carBAMazepine 100 MG TAB.CHEW NGT SCH ×3 (06:18→21:15)
[2018-05-15] MEDS: hydrALAZINE HCL 50 MG TABLET (FP) NGT SCH ×3 (06:18→22:37)
[2018-05-15] MEDS: LEVOTHYROXINE NA 100 MCG TABLET (FP) NGT SCH (06:18)
[2018-05-15 07:31] LABS: BASO % 0.5 % (0-2.0); EOS % 3.3 % (0-4.5); HEMATOCRIT 30.1 % (32.4-45.2); HEMOGLOBIN 10.4 GM/dL (10.7-15.3); LYMPH % 10.2 % (8-40); MCH 31.4 pg (25.7-33.7); MCHC 34.4 g/dl (32.0-36.0); MEAN CELL VOLUME 91.3 fl (80-96); MEAN PLT VOLUME 7.4 fl (7.5-11.1); MONO % 9.8 % (3.8-10.2); NEUT % 76.2 % (42.8-82.8); PLATELET COUNT 356 K/MM3 (134-434); RDW 17.2 % (11.6-15.6); WHITE BLOOD COUNT 7.2 K/mm3 (4.0-10.0)
[2018-05-15 08:22] LABS: ALK PHOS 155 U/L (45-117); ANION GAP 3 MMOL/L (8-16); BILIRUBIN,TOTAL 0.4 mg/dL (0.2-1); BLOOD UREA NITROGEN 13 mg/dL (7-18); CALCIUM 8.8 mg/dL (8.5-10.1); CHLORIDE 96 mmol/L (98-107); CO2 38 mmol/L (21-32); CREATININE 0.7 mg/dL (0.55-1.3); GLUCOSE,RANDOM 137 mg/dL (74-106); POTASSIUM 4.2 mmol/L (3.5-5.1); SGOT/AST < 3 U/L (15-37); SGPT/ALT 36 U/L (13-61); SODIUM 137 mmol/L (136-145); TOT PROT 6.9 g/dl (6.4-8.2)
[2018-05-15] MEDS ORDERED: PT OWN MED DRAWER 7, Y5N ONE ×3 (09:03→20:36)
[2018-05-15] MEDS: FERROUS SO4 300 MG/5 ML ORAL SOLN UNIT DOSE CUPS NGT SCH (10:50)
[2018-05-15] MEDS: ASCORBIC ACID 500 MG/5 ML UNIT DOSE CUP NGT SCH (10:51)
[2018-05-15] MEDS: BACITRACIN 15 GM TUBE TOPICAL OINTMENT TP SCH ×2 (10:51→22:37)
[2018-05-15] MEDS: LORATADINE 10 MG TABLET NGT SCH (10:52)
[2018-05-15] MEDS: LACTOBACILLUS ACIDOPHILUS 1 TABLET NGT SCH ×2 (10:52→21:14)
[2018-05-15] MEDS: CYANOCOBALAMIN 1,000 MCG TABLET (FP) NGT SCH (10:52)
[2018-05-15] MEDS: MULTIVIT-MINERALS ORAL LIQUID NGT SCH (10:52)
[2018-05-15] MEDS: NAPH,MB-DB/K PH,MBDB POWDER PACKET NGT SCH (10:52)
[2018-05-15] MEDS: METOPROLOL TARTRATE 50 MG TABLET (FP) NGT SCH ×2 (10:52→21:16)
[2018-05-15] MEDS: FOLIC ACID 1 MG TABLET (FP) NGT SCH (10:52)
[2018-05-15] MEDS: NYSTATIN/TRIAMCINOLONE TOPICAL OINTMENT 15 GM TUBE TP SCH ×2 (10:53→21:16)
[2018-05-15] MEDS: SODIUM CHLORIDE 1 GM TABLET NGT SCH (10:53)
[2018-05-15] MEDS: ZINC SULFATE 220 MG CAPSULE (FP) NGT SCH (11:07)
[2018-05-15] MEDS: PANTOPRAZOLE SODIUM 40 MG VIAL IVPUSH SCH ×2 (11:07→21:14)
[2018-05-15] MEDS: SERTRALINE HCL 50 MG TABLET (FP) NGT SCH (11:08)
[2018-05-15] MEDS: COLLAGENASE CLOSTRIDIUM HIST. 30 GRAMS TUBE TP SCH (12:59)
--- NOTE | 2018-05-15 14:15 | PN ---
Progress Note, Physician History of Present Illness: PULMONARY ALERT,ON VENT SUPPORT AC MODE,C/O DIARRHEA - Current Medication List Current Medications: Active Medications Acetaminophen (Tylenol Oral Solution -) 650 mg NGT Q6H PRN PRN Reason: FEVER Last Admin: 05/11/18 22:29 Dose: 650 mg Albuterol/Ipratropium (Duoneb -) 1 amp NEB RQID [facility] Last Admin: 05/15/18 11:44 Dose: 1 amp Ascorbic Acid (Vitamin C Oral Solution -) 500 mg NGT DAILY [facility] Last Admin: 05/15/18 10:51 Dose: 500 mg Bacitracin (Bacitracin -) 1 applic TP BID [facility] Last Admin: 05/15/18 10:51 Dose: 1 applic Carbamazepine (Tegretol -) 100 mg NGT TID [facility] Last Admin: 05/15/18 06:18 Dose: 100 mg Clonazepam (Klonopin -) 1 mg NGT HS PRN PRN Reason: INSOMNIA Last Admin: 05/11/18 22:37 Dose: 1 mg Collagenase (Santyl -) 1 applic TP DAILY [facility]; Protocol Last Admin: 05/15/18 12:59 Dose: Not Given Cyanocobalamin (Vitamin B12 -) 1,000 mcg NGT DAILY [facility] Last Admin: 05/15/18 10:52 Dose: 1,000 mcg Ferrous Sulfate (Feosol) 300 mg NGT DAILY [facility] Last Admin: 05/15/18 10:50 Dose: 300 mg Folic Acid (Folic Acid -) 1 mg NGT DAILY [facility] Last Admin: 05/15/18 10:52 Dose: 1 mg Hydralazine HCl (Apresoline -) 50 mg NGT TID [facility] Last Admin: 05/15/18 06:18 Dose: 50 mg Piperacillin Sod/Tazobactam (Sod 4.5 gm/ Dextrose) 100 mls @ 200 mls/hr IVPB Q8H-IV [facility]; Protocol Last Admin: 05/15/18 10:50 Dose: 200 mls/hr Vancomycin HCl 1,250 mg/ (Dextrose) 250 mls @ 250 mls/2 hr IVPB Q24H [facility]; Protocol Last Admin: 05/14/18 14:16 Dose: 250 mls/2 hr Lactobacillus Acidophilus (Bacid -) 1 tab NGT BID [facility] Last Admin: 05/15/18 10:52 Dose: 1 tab Levothyroxine Sodium (Synthroid -) 100 mcg NGT DAILY@0700 [facility] Last Admin: 05/15/18 06:18 Dose: 100 mcg Loperamide HCl (Imodium Liquid -) 1 mg NGT Q8H PRN PRN Reason: DIARRHEA Last Admin: 05/15/18 06:18 Dose: 1 mg Loratadine (Claritin -) 10 mg NGT DAILY [facility] Last Admin: 05/15/18 10:52 Dose: 10 mg Metoprolol Tartrate (Lopressor -) 50 mg NGT BID [facility] Last Admin: 05/15/18 10:52 Dose: 50 mg Mirtazapine (Remeron -) 7.5 mg NGT HS [facility] Last Admin: 05/14/18 21:13 Dose: 7.5 mg Nystatin/Triamcinolone Acetonide (Mycolog Ii Ointment -) 1 applic TP BID [facility] Last Admin: 05/15/18 10:53 Dose: Not Given Pantoprazole Sodium (Protonix Iv) 40 mg IVPUSH BID [facility] Last Admin: 05/15/18 11:07 Dose: 40 mg Potassium Phos/Sodium Phos (Phos-Nak Packet -) 1 packet NGT DAILY [facility] Last Admin: 05/15/18 10:52 Dose: 1 packet Sertraline HCl (Zoloft -) 50 mg NGT DAILY [facility] Last Admin: 05/15/18 11:08 Dose: 50 mg Sodium Chloride (Sodium Chloride Tablet -) 1 gm NGT DAILY [facility] Last Admin: 05/15/18 10:53 Dose: 1 gm Zinc Sulfate (Orazinc -) 220 mg NGT DAILY [facility] Last Admin: 05/15/18 11:07 Dose: 220 mg - Objective Vital Signs: Vital Signs Temperature 98.3 F 05/15/18 09:00 Pulse Rate 85 05/15/18 09:00 Respiratory Rate 19 05/15/18 11:43 Blood Pressure 106/64 05/15/18 09:00 O2 Sat by Pulse Oximetry (%) 97 05/15/18 08:05 Constitutional: Yes: Well Nourished, No Distress Eyes: Yes: WNL HENT: Yes: WNL Neck: Yes: Supple (TRACH) Cardiovascular: Yes: Regular Rate and Rhythm, S1, S2 Respiratory: Yes: Rhonchi (LUCAS RHONCHI) Gastrointestinal: Yes: Normal Bowel Sounds, Soft Extremities: Yes: WNL Edema: No Labs: CBC, BMP 05/15/18 06:10 05/15/18 06:10 Problem List - Problems (1) Anemia Code(s): D64.9 - ANEMIA, UNSPECIFIED (2) Electrolyte imbalance Code(s): E87.8 - OTH DISORDERS OF ELECTROLYTE AND FLUID BALANCE, NEC (3) Functional 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 (4) Toxic metabolic encephalopathy Code(s): G92 - TOXIC ENCEPHALOPATHY (5) Acute on chronic respiratory failure with hypoxia and hypercapnia Code(s): J96.21 - ACUTE AND CHRONIC RESPIRATORY FAILURE WITH HYPOXIA; J96.22 - ACUTE AND CHRONIC RESPIRATORY FAILURE WITH HYPERCAPNIA (6) Failure to thrive Code(s): [id number] - (7) Functional quadriplegia Code(s): R53.2 - FUNCTIONAL QUADRIPLEGIA (8) Hx of multiple sclerosis Code(s): Z86.69 - PERSONAL HISTORY OF DIS OF THE NERVOUS SYS AND SENSE ORGANS (9) Hypokalemia Code(s): E87.6 - HYPOKALEMIA (10) Multiple sclerosis Code(s): G35 - MULTIPLE SCLEROSIS (11) Pneumonia Code(s): J18.9 - PNEUMONIA, UNSPECIFIED ORGANISM Qualifiers: Pneumonia type: pneumonia due to methicillin-resistant Staphylococcus aureus (MRSA) (12) Sacral decubitus ulcer, stage IV Code(s): L89.154 - PRESSURE ULCER OF SACRAL REGION, STAGE 4 (13) Status post tracheostomy Code(s): Z93.0 - TRACHEOSTOMY STATUS Assessment/Plan ASSESSMENT/PLAN: Suspected aspiration pneumonitis AMS due to Severe Hyponatremia corrected Toxic Metabolic Encephalopathy Functional Quadriplegia Multiple Sclerosis Trigeminal Neuralgia Acute on chronic respiratory failure HTN Hypothyroidism Depression Anxiety Diarrhea C-dif nutritional support Wean trials as tolerated BD TX ABX per ID DR ELDER
--- NOTE | 2018-05-15 14:24 | PN ---
Progress Note, Physician - Current Medication List Current Medications: Active Medications Acetaminophen (Tylenol Oral Solution -) 650 mg NGT Q6H PRN PRN Reason: FEVER Last Admin: 05/11/18 22:29 Dose: 650 mg Albuterol/Ipratropium (Duoneb -) 1 amp NEB RQID [facility] Last Admin: 05/15/18 11:44 Dose: 1 amp Ascorbic Acid (Vitamin C Oral Solution -) 500 mg NGT DAILY [facility] Last Admin: 05/15/18 10:51 Dose: 500 mg Bacitracin (Bacitracin -) 1 applic TP BID [facility] Last Admin: 05/15/18 10:51 Dose: 1 applic Carbamazepine (Tegretol -) 100 mg NGT TID [facility] Last Admin: 05/15/18 06:18 Dose: 100 mg Clonazepam (Klonopin -) 1 mg NGT HS PRN PRN Reason: INSOMNIA Last Admin: 05/11/18 22:37 Dose: 1 mg Collagenase (Santyl -) 1 applic TP DAILY [facility]; Protocol Last Admin: 05/15/18 12:59 Dose: Not Given Cyanocobalamin (Vitamin B12 -) 1,000 mcg NGT DAILY [facility] Last Admin: 05/15/18 10:52 Dose: 1,000 mcg Ferrous Sulfate (Feosol) 300 mg NGT DAILY [facility] Last Admin: 05/15/18 10:50 Dose: 300 mg Folic Acid (Folic Acid -) 1 mg NGT DAILY [facility] Last Admin: 05/15/18 10:52 Dose: 1 mg Hydralazine HCl (Apresoline -) 50 mg NGT TID [facility] Last Admin: 05/15/18 06:18 Dose: 50 mg Piperacillin Sod/Tazobactam (Sod 4.5 gm/ Dextrose) 100 mls @ 200 mls/hr IVPB Q8H-IV [facility]; Protocol Last Admin: 05/15/18 10:50 Dose: 200 mls/hr Vancomycin HCl 1,250 mg/ (Dextrose) 250 mls @ 250 mls/2 hr IVPB Q24H [facility]; Protocol Last Admin: 05/14/18 14:16 Dose: 250 mls/2 hr Lactobacillus Acidophilus (Bacid -) 1 tab NGT BID [facility] Last Admin: 05/15/18 10:52 Dose: 1 tab Levothyroxine Sodium (Synthroid -) 100 mcg NGT DAILY@0700 [facility] Last Admin: 05/15/18 06:18 Dose: 100 mcg Loperamide HCl (Imodium Liquid -) 1 mg NGT Q8H PRN PRN Reason: DIARRHEA Last Admin: 05/15/18 06:18 Dose: 1 mg Loratadine (Claritin -) 10 mg NGT DAILY [facility] Last Admin: 05/15/18 10:52 Dose: 10 mg Metoprolol Tartrate (Lopressor -) 50 mg NGT BID [facility] Last Admin: 05/15/18 10:52 Dose: 50 mg Mirtazapine (Remeron -) 7.5 mg NGT HS [facility] Last Admin: 05/14/18 21:13 Dose: 7.5 mg Nystatin/Triamcinolone Acetonide (Mycolog Ii Ointment -) 1 applic TP BID [facility] Last Admin: 05/15/18 10:53 Dose: Not Given Pantoprazole Sodium (Protonix Iv) 40 mg IVPUSH BID [facility] Last Admin: 05/15/18 11:07 Dose: 40 mg Potassium Phos/Sodium Phos (Phos-Nak Packet -) 1 packet NGT DAILY [facility] Last Admin: 05/15/18 10:52 Dose: 1 packet Sertraline HCl (Zoloft -) 50 mg NGT DAILY [facility] Last Admin: 05/15/18 11:08 Dose: 50 mg Sodium Chloride (Sodium Chloride Tablet -) 1 gm NGT DAILY [facility] Last Admin: 05/15/18 10:53 Dose: 1 gm Zinc Sulfate (Orazinc -) 220 mg NGT DAILY [facility] Last Admin: 05/15/18 11:07 Dose: 220 mg - Objective Vital Signs: Vital Signs Temperature 98.3 F 05/15/18 09:00 Pulse Rate 85 05/15/18 09:00 Respiratory Rate 19 05/15/18 11:43 Blood Pressure 106/64 05/15/18 09:00 O2 Sat by Pulse Oximetry (%) 97 05/15/18 08:05 Cardiovascular: Yes: S1, S2 Respiratory: Yes: CTA Bilaterally, Other (trach) Gastrointestinal: Yes: Normal Bowel Sounds, Soft Labs: CBC, BMP 05/15/18 06:10 05/15/18 06:10 Problem List - Problems (1) Hyponatremia Code(s): E87.1 - HYPO-OSMOLALITY AND HYPONATREMIA (2) Anemia Code(s): D64.9 - ANEMIA, UNSPECIFIED Qualifiers: Other causes of anemia: other cause, not classified (3) Chronic respiratory failure Code(s): J96.10 - CHRONIC RESPIRATORY FAILURE, UNSP W HYPOXIA OR HYPERCAPNIA (4) Functional quadriplegia Code(s): R53.2 - FUNCTIONAL QUADRIPLEGIA (5) Hypothyroid Code(s): E03.9 - HYPOTHYROIDISM, UNSPECIFIED (6) Multiple sclerosis Code(s): G35 - MULTIPLE SCLEROSIS (7) Decubital ulcer Code(s): L89.90 - PRESSURE ULCER OF UNSPECIFIED SITE, UNSPECIFIED STAGE Qualifiers: Pressure injury location: unspecified location Pressure injury stage: unspecified pressure injury stage Qualified Code(s): L89.90 - Pressure ulcer of unspecified site, unspecified stage (8) Abnormal LFTs Code(s): R94.5 - ABNORMAL RESULTS OF LIVER FUNCTION STUDIES Assessment/Plan - Problems (1) Hyponatremia Assessment/Plan: sodium is 135 now is 140 ng tube placed for tube feeds Code(s): E87.1 - HYPO-OSMOLALITY AND HYPONATREMIA (2) Anemia Assessment/Plan: repeat cbc hgb 10 on ferrous sulfate dara give prbc Code(s): D64.9 - ANEMIA, UNSPECIFIED (3) Hypothyroid Assessment/Plan: will switch back to synthroid 100mcg via ng tube daily Code(s): E03.9 - HYPOTHYROIDISM, UNSPECIFIED (4) Hyperkalemia Assessment/Plan: improved now hypokalemia -repleted Code(s): E87.5 - HYPERKALEMIA (5) Hx of multiple sclerosis Assessment/Plan: vent support appreciate neurology note dvt ppx NG tube placed by IR for aspiration Code(s): Z86.69 - PERSONAL HISTORY OF DIS OF THE NERVOUS SYS AND SENSE ORGANS (6) Electrolyte imbalance Assessment/Plan: repeat labs ordered Code(s): E87.8 - OTH DISORDERS OF ELECTROLYTE AND FLUID BALANCE, NEC (7) Functional quadriplegia secondary to MS Assessment/Plan: perera frequent turn positon dr jeffries- wound consult noted dvt ppx pallitive care team Code(s): G35 - MULTIPLE SCLEROSIS; R53.2 - FUNCTIONAL QUADRIPLEGIA (8) Insomnia Assessment/Plan: in the hospital will give clonazzepam at night that what she takes at home and put her on the vent at night and in the morning till she is fully awake Code(s): G47.00 - INSOMNIA, UNSPECIFIED (9) Pneumonia Assessment/Plan: RLL on zosyn Code(s): J18.9 - PNEUMONIA, UNSPECIFIED ORGANISM Qualifiers: Pneumonia type: pneumonia due to methicillin-resistant Staphylococcus aureus (MRSA) (10) Cdif Assessment/Plan: toxin neg id consult
[2018-05-15] MEDS: VANCOMYCIN HCL 1,250 MG in DEXTROSE 5%-WATER - 250 ML IVPB SCH (15:37)
[2018-05-15] MEDS: clonazePAM 0.5 MG TABLET NGT PRN (21:15)
[2018-05-15] MEDS: MIRTAZAPINE 15 MG TABLET (FP) NGT SCH (21:17)
[2018-05-16] MEDS ORDERED: PIPERACILLIN/TAZOBACTAM 4.5 GM VIAL IVPB ONE ×3 (01:00→18:06)
[2018-05-16] MEDS ORDERED: DEXTROSE 5%-WATER 100 ML IVPB ONE ×3 (01:01→18:06)
[2018-05-16] MEDS: PIPERACILLIN/TAZOB 4.5 GM 4.5 GM in DEXTROSE 5%-WATER 100 ML IVPB SCH ×3 (01:27→18:23)
[2018-05-16] MEDS: hydrALAZINE HCL 50 MG TABLET (FP) NGT SCH ×3 (06:23→22:25)
[2018-05-16] MEDS: LEVOTHYROXINE NA 100 MCG TABLET (FP) NGT SCH (06:23)
[2018-05-16] MEDS: carBAMazepine 100 MG TAB.CHEW NGT SCH ×3 (06:23→22:28)
[2018-05-16] MEDS: ALBUTEROL SO4 2.5/IPRATROPIUM 0.5 INH SOL 3 ML VIAL.NEB. NEB SCH ×4 (07:20→21:30)
[2018-05-16 07:52] LABS: BASO % 0.5 % (0-2.0); EOS % 2.4 % (0-4.5); HEMATOCRIT 27.6 % (32.4-45.2); HEMOGLOBIN 9.5 GM/dL (10.7-15.3); LYMPH % 10.9 % (8-40); MCH 31.8 pg (25.7-33.7); MCHC 34.4 g/dl (32.0-36.0); MEAN CELL VOLUME 92.6 fl (80-96); MEAN PLT VOLUME 7.7 fl (7.5-11.1); MONO % 9.8 % (3.8-10.2); NEUT % 76.4 % (42.8-82.8); PLATELET COUNT 367 K/MM3 (134-434); RBC 2.99 M/mm3 (3.60-5.2); RDW 16.6 % (11.6-15.6); WHITE BLOOD COUNT 6.9 K/mm3 (4.0-10.0)
[2018-05-16 08:18] LABS: ALK PHOS 136 U/L (45-117); ANION GAP 6 MMOL/L (8-16); BILIRUBIN,TOTAL 0.3 mg/dL (0.2-1); BLOOD UREA NITROGEN 21 mg/dL (7-18); CALCIUM 8.3 mg/dL (8.5-10.1); CHLORIDE 98 mmol/L (98-107); CO2 36 mmol/L (21-32); CREATININE 0.7 mg/dL (0.55-1.3); GLUCOSE,RANDOM 125 mg/dL (74-106); POTASSIUM 4.4 mmol/L (3.5-5.1); SGOT/AST 14 U/L (15-37); SGPT/ALT 21 U/L (13-61); SODIUM 140 mmol/L (136-145); TOT PROT 6.6 g/dl (6.4-8.2)
[2018-05-16] MEDS: COLLAGENASE CLOSTRIDIUM HIST. 30 GRAMS TUBE TP SCH (09:54)
[2018-05-16] MEDS: BACITRACIN 15 GM TUBE TOPICAL OINTMENT TP SCH ×2 (09:55→22:26)
--- NOTE | 2018-05-16 10:16 | PN ---
Progress Note (short form) - Note Progress Note: Renal follow up for Hyponatremia Pt seen and examined at the bedside on vent awake and alert had diarrhea overnight no acute complaints no fever, chills, pain Vital Signs Temperature 98.3 F 05/16/18 09:59 Pulse Rate 85 05/16/18 09:59 Respiratory Rate 15 05/16/18 09:59 Blood Pressure 113/67 05/16/18 09:59 O2 Sat by Pulse Oximetry (%) 96 05/16/18 08:15 NAD on vent via trach No edema in LE CBC, BMP 05/16/18 07:15 05/16/18 07:15 Current Medications Acetaminophen (Tylenol Oral Solution -) 650 mg NGT Q6H PRN PRN Reason: FEVER Last Admin: 05/11/18 22:29 Dose: 650 mg Albuterol/Ipratropium (Duoneb -) 1 amp NEB RQID [facility] Last Admin: 05/16/18 07:20 Dose: 1 amp Ascorbic Acid (Vitamin C Oral Solution -) 500 mg NGT DAILY [facility] Last Admin: 05/15/18 10:51 Dose: 500 mg Bacitracin (Bacitracin -) 1 applic TP BID [facility] Last Admin: 05/16/18 09:55 Dose: 1 applic Carbamazepine (Tegretol -) 100 mg NGT TID [facility] Last Admin: 05/16/18 06:23 Dose: 100 mg Clonazepam (Klonopin -) 1 mg NGT HS PRN PRN Reason: INSOMNIA Last Admin: 05/15/18 21:15 Dose: 1 mg Collagenase (Santyl -) 1 applic TP DAILY [facility]; Protocol Last Admin: 05/16/18 09:54 Dose: 1 applic Cyanocobalamin (Vitamin B12 -) 1,000 mcg NGT DAILY [facility] Last Admin: 05/15/18 10:52 Dose: 1,000 mcg Ferrous Sulfate (Feosol) 300 mg NGT DAILY [facility] Last Admin: 05/15/18 10:50 Dose: 300 mg Folic Acid (Folic Acid -) 1 mg NGT DAILY [facility] Last Admin: 05/15/18 10:52 Dose: 1 mg Hydralazine HCl (Apresoline -) 50 mg NGT TID [facility] Last Admin: 05/16/18 06:23 Dose: Not Given Piperacillin Sod/Tazobactam (Sod 4.5 gm/ Dextrose) 100 mls @ 200 mls/hr IVPB Q8H-IV [facility]; Protocol Last Admin: 05/16/18 01:27 Dose: 200 mls/hr Vancomycin HCl 1,250 mg/ (Dextrose) 250 mls @ 250 mls/2 hr IVPB Q24H [facility]; Protocol Last Admin: 05/15/18 15:37 Dose: 250 mls/2 hr Lactobacillus Acidophilus (Bacid -) 1 tab NGT BID [facility] Last Admin: 05/15/18 21:14 Dose: 1 tab Levothyroxine Sodium (Synthroid -) 100 mcg NGT DAILY@0700 [facility] Last Admin: 05/16/18 06:23 Dose: 100 mcg Loperamide HCl (Imodium Liquid -) 1 mg NGT Q8H PRN PRN Reason: DIARRHEA Last Admin: 05/15/18 06:18 Dose: 1 mg Loratadine (Claritin -) 10 mg NGT DAILY [facility] Last Admin: 05/15/18 10:52 Dose: 10 mg Metoprolol Tartrate (Lopressor -) 50 mg NGT BID [facility] Last Admin: 05/15/18 21:16 Dose: Not Given Mirtazapine (Remeron -) 7.5 mg NGT HS [facility] Last Admin: 05/15/18 21:17 Dose: 7.5 mg Nystatin/Triamcinolone Acetonide (Mycolog Ii Ointment -) 1 applic TP BID [facility] Last Admin: 05/15/18 21:16 Dose: Not Given Pantoprazole Sodium (Protonix Iv) 40 mg IVPUSH BID [facility] Last Admin: 05/15/18 21:14 Dose: 40 mg Potassium Phos/Sodium Phos (Phos-Nak Packet -) 1 packet NGT DAILY [facility] Last Admin: 05/15/18 10:52 Dose: 1 packet Sertraline HCl (Zoloft -) 50 mg NGT DAILY [facility] Last Admin: 05/15/18 11:08 Dose: 50 mg Sodium Chloride (Sodium Chloride Tablet -) 1 gm NGT DAILY [facility] Last Admin: 05/15/18 10:53 Dose: 1 gm Zinc Sulfate (Orazinc -) 220 mg NGT DAILY [facility] Last Admin: 05/15/18 11:07 Dose: 220 mg 53 year old woman with hx of Multple Sclerosis, Hypertension, Hyperlipidemia, Hypothyroidism, trigeminal neualgia, hx of hyponatremia/SIADH who presented with low serum Na as an outpatient and admitted with acute worsening of serum Na. #Acute on Chronic hyponatremia likely due to SIADH #Multiple Sclerosis #Anemia #Hypertension #Small pleural effusion #Hypothyroidism Serum Sodium and renal function stable continue tube feeds with free water as ordered continue Abx as per ID diarrhea management as per primary and ID supportive care Thank you Tyshawn Doe DO
--- NOTE | 2018-05-16 10:47 | PN ---
Progress Note (short form) - Note Progress Note: awake and alert trach to vent now with ngt-receiving tube feeds 2 loose bms, one last night, one early this am Vital Signs Period Temp Pulse Resp BP Sys/Morillo Pulse Ox Last 24 Hr 98.1 F-99.8 F 70-85 12-20 93-113/53-67 96-97 cor-rrr llungs decreased bs at bases abd soft,nt ext no edema CBC, BMP 05/16/18 07:15 05/16/18 07:15 Microbiology 05/14/18 12:00 Stool Clostridioides difficile Antigen - Final 05/14/18 12:00 Stool Clostridioides difficile Toxin Assay - Final 05/08/18 17:00 Blood - Peripheral Venous Blood Culture - Final NO GROWTH AFTER 5 DAYS INCUBATION 05/08/18 17:00 Blood - Peripheral Venous Blood Culture - Final NO GROWTH AFTER 5 DAYS INCUBATION 05/06/18 11:20 Blood - Peripheral Venous Blood Culture - Final NO GROWTH AFTER 5 DAYS INCUBATION 05/06/18 11:38 Blood - Peripheral Venous Blood Culture - Final NO GROWTH AFTER 5 DAYS INCUBATION 05/06/18 18:30 Sputum - Endotrachea Suction/Ventilator Gram Stain - Final 05/06/18 18:30 Sputum - Endotrachea Suction/Ventilator Sputum Culture - Final Pseudomonas Aeruginosa Serratia Marcescens Mr S Aureus 05/08/18 19:00 Urine - Urine Raza Legionella Antigen - Final 05/08/18 19:00 Urine - Urine Raza Streptococcus pneumoniae Antigen (M - Final 05/03/18 17:40 Blood - Peripheral Venous Blood Culture - Final NO GROWTH AFTER 5 DAYS INCUBATION 05/03/18 17:40 Blood - Peripheral Venous Blood Culture - Final NO GROWTH AFTER 5 DAYS INCUBATION 05/06/18 14:30 Urine - Urine Raza Urine Culture - Final Contaminated: Please Repeat 05/03/18 17:40 Urine - Urine Clean Catch Urine Culture - Final Contaminated: Please Repeat Current Medications Acetaminophen (Tylenol Oral Solution -) 650 mg NGT Q6H PRN PRN Reason: FEVER Last Admin: 05/11/18 22:29 Dose: 650 mg Albuterol/Ipratropium (Duoneb -) 1 amp NEB RQID [facility] Last Admin: 05/16/18 07:20 Dose: 1 amp Ascorbic Acid (Vitamin C Oral Solution -) 500 mg NGT DAILY [facility] Last Admin: 05/15/18 10:51 Dose: 500 mg Bacitracin (Bacitracin -) 1 applic TP BID [facility] Last Admin: 05/16/18 09:55 Dose: 1 applic Carbamazepine (Tegretol -) 100 mg NGT TID [facility] Last Admin: 05/16/18 06:23 Dose: 100 mg Clonazepam (Klonopin -) 1 mg NGT HS PRN PRN Reason: INSOMNIA Last Admin: 05/15/18 21:15 Dose: 1 mg Collagenase (Santyl -) 1 applic TP DAILY [facility]; Protocol Last Admin: 05/16/18 09:54 Dose: 1 applic Cyanocobalamin (Vitamin B12 -) 1,000 mcg NGT DAILY [facility] Last Admin: 05/15/18 10:52 Dose: 1,000 mcg Ferrous Sulfate (Feosol) 300 mg NGT DAILY [facility] Last Admin: 05/15/18 10:50 Dose: 300 mg Folic Acid (Folic Acid -) 1 mg NGT DAILY [facility] Last Admin: 05/15/18 10:52 Dose: 1 mg Hydralazine HCl (Apresoline -) 50 mg NGT TID [facility] Last Admin: 05/16/18 06:23 Dose: Not Given Piperacillin Sod/Tazobactam (Sod 4.5 gm/ Dextrose) 100 mls @ 200 mls/hr IVPB Q8H-IV [facility]; Protocol Last Admin: 05/16/18 01:27 Dose: 200 mls/hr Vancomycin HCl 1,250 mg/ (Dextrose) 250 mls @ 250 mls/2 hr IVPB Q24H [facility]; Protocol Last Admin: 05/15/18 15:37 Dose: 250 mls/2 hr Lactobacillus Acidophilus (Bacid -) 1 tab NGT BID [facility] Last Admin: 05/15/18 21:14 Dose: 1 tab Levothyroxine Sodium (Synthroid -) 100 mcg NGT DAILY@0700 [facility] Last Admin: 05/16/18 06:23 Dose: 100 mcg Loratadine (Claritin -) 10 mg NGT DAILY [facility] Last Admin: 05/15/18 10:52 Dose: 10 mg Metoprolol Tartrate (Lopressor -) 50 mg NGT BID [facility] Last Admin: 05/15/18 21:16 Dose: Not Given Mirtazapine (Remeron -) 7.5 mg NGT HS [facility] Last Admin: 05/15/18 21:17 Dose: 7.5 mg Nystatin/Triamcinolone Acetonide (Mycolog Ii Ointment -) 1 applic TP BID [facility] Last Admin: 05/15/18 21:16 Dose: Not Given Pantoprazole Sodium (Protonix Iv) 40 mg IVPUSH BID [facility] Last Admin: 05/15/18 21:14 Dose: 40 mg Potassium Phos/Sodium Phos (Phos-Nak Packet -) 1 packet NGT DAILY [facility] Last Admin: 05/15/18 10:52 Dose: 1 packet Sertraline HCl (Zoloft -) 50 mg NGT DAILY [facility] Last Admin: 05/15/18 11:08 Dose: 50 mg Sodium Chloride (Sodium Chloride Tablet -) 1 gm NGT DAILY [facility] Last Admin: 05/15/18 10:53 Dose: 1 gm Zinc Sulfate (Orazinc -) 220 mg NGT DAILY [facility] Last Admin: 05/15/18 11:07 Dose: 220 mg imp/reccd RLL pneumonia vancomycin and zosyn day #8 repeat cxray hopefully d/c antibiotics in am ?cdiff- reports several loose stools, cdiff antigen positive given current antiibotic use will start po vancomycin cxray today respiratory failure chronic MS with functional quadraplegia Problem List - Problems (1) Leukocytosis Code(s): D72.829 - ELEVATED WHITE BLOOD CELL COUNT, UNSPECIFIED (2) Hyponatremia Code(s): E87.1 - HYPO-OSMOLALITY AND HYPONATREMIA (3) Chronic respiratory failure Code(s): J96.10 - CHRONIC RESPIRATORY FAILURE, UNSP W HYPOXIA OR HYPERCAPNIA (4) Functional 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
[2018-05-16] MEDS ORDERED: PT OWN MED DRAWER 7, Y5N ONE ×3 (11:22→21:21)
[2018-05-16] MEDS: PANTOPRAZOLE SODIUM 40 MG VIAL IVPUSH SCH ×2 (11:26→22:26)
[2018-05-16] MEDS: FOLIC ACID 1 MG TABLET (FP) NGT SCH (11:26)
[2018-05-16] MEDS: NAPH,MB-DB/K PH,MBDB POWDER PACKET NGT SCH (11:26)
[2018-05-16] MEDS: LORATADINE 10 MG TABLET NGT SCH (11:26)
[2018-05-16] MEDS: LACTOBACILLUS ACIDOPHILUS 1 TABLET NGT SCH ×2 (11:26→22:25)
[2018-05-16] MEDS: METOPROLOL TARTRATE 50 MG TABLET (FP) NGT SCH ×2 (11:27→22:26)
[2018-05-16] MEDS: ZINC SULFATE 220 MG CAPSULE (FP) NGT SCH (11:27)
[2018-05-16] MEDS: SODIUM CHLORIDE 1 GM TABLET NGT SCH (11:27)
[2018-05-16] MEDS: SERTRALINE HCL 50 MG TABLET (FP) NGT SCH (11:27)
[2018-05-16] MEDS: FERROUS SO4 300 MG/5 ML ORAL SOLN UNIT DOSE CUPS NGT SCH (11:27)
[2018-05-16] MEDS: CYANOCOBALAMIN 1,000 MCG TABLET (FP) NGT SCH (11:27)
[2018-05-16] MEDS: NYSTATIN/TRIAMCINOLONE TOPICAL OINTMENT 15 GM TUBE TP SCH ×2 (11:28→22:26)
--- NOTE | 2018-05-16 11:57 | PN ---
Progress Note (short form) - Note Progress Note: PULMONARY Vented on volume assist control. c/o diarrhea. Vital Signs Period Temp Pulse Resp BP Sys/Morillo Pulse Ox Last 24 Hr 98.1 F-99.8 F 70-85 10-20 93-113/53-67 96-97 Gen: vented, awake Heart: RRR Lung: decreased breath sounds at the bases Abd: soft, nontender Ext: no edema CBC, BMP 05/16/18 07:15 05/16/18 07:15 Active Medications Acetaminophen (Tylenol Oral Solution -) 650 mg NGT Q6H PRN PRN Reason: FEVER Last Admin: 05/11/18 22:29 Dose: 650 mg Albuterol/Ipratropium (Duoneb -) 1 amp NEB RQID [facility] Last Admin: 05/16/18 11:43 Dose: 1 amp Ascorbic Acid (Vitamin C Oral Solution -) 500 mg NGT DAILY [facility] Last Admin: 05/15/18 10:51 Dose: 500 mg Bacitracin (Bacitracin -) 1 applic TP BID [facility] Last Admin: 05/16/18 09:55 Dose: 1 applic Carbamazepine (Tegretol -) 100 mg NGT TID [facility] Last Admin: 05/16/18 06:23 Dose: 100 mg Clonazepam (Klonopin -) 1 mg NGT HS PRN PRN Reason: INSOMNIA Last Admin: 05/15/18 21:15 Dose: 1 mg Collagenase (Santyl -) 1 applic TP DAILY [facility]; Protocol Last Admin: 05/16/18 09:54 Dose: 1 applic Cyanocobalamin (Vitamin B12 -) 1,000 mcg NGT DAILY [facility] Last Admin: 05/16/18 11:27 Dose: 1,000 mcg Ferrous Sulfate (Feosol) 300 mg NGT DAILY [facility] Last Admin: 05/16/18 11:27 Dose: 300 mg Folic Acid (Folic Acid -) 1 mg NGT DAILY [facility] Last Admin: 05/16/18 11:26 Dose: 1 mg Hydralazine HCl (Apresoline -) 50 mg NGT TID [facility] Last Admin: 05/16/18 06:23 Dose: Not Given Piperacillin Sod/Tazobactam (Sod 4.5 gm/ Dextrose) 100 mls @ 200 mls/hr IVPB Q8H-IV [facility]; Protocol Last Admin: 05/16/18 11:26 Dose: 200 mls/hr Vancomycin HCl 1,250 mg/ (Dextrose) 250 mls @ 250 mls/2 hr IVPB Q24H [facility]; Protocol Last Admin: 05/15/18 15:37 Dose: 250 mls/2 hr Lactobacillus Acidophilus (Bacid -) 1 tab NGT BID [facility] Last Admin: 05/16/18 11:26 Dose: 1 tab Levothyroxine Sodium (Synthroid -) 100 mcg NGT DAILY@0700 [facility] Last Admin: 05/16/18 06:23 Dose: 100 mcg Loratadine (Claritin -) 10 mg NGT DAILY [facility] Last Admin: 05/16/18 11:26 Dose: 10 mg Metoprolol Tartrate (Lopressor -) 50 mg NGT BID [facility] Last Admin: 05/16/18 11:27 Dose: 50 mg Mirtazapine (Remeron -) 7.5 mg NGT HS [facility] Last Admin: 05/15/18 21:17 Dose: 7.5 mg Nystatin/Triamcinolone Acetonide (Mycolog Ii Ointment -) 1 applic TP BID [facility] Last Admin: 05/16/18 11:28 Dose: 1 applic Pantoprazole Sodium (Protonix Iv) 40 mg IVPUSH BID [facility] Last Admin: 05/16/18 11:26 Dose: 40 mg Potassium Phos/Sodium Phos (Phos-Nak Packet -) 1 packet NGT DAILY [facility] Last Admin: 05/16/18 11:26 Dose: 1 packet Sertraline HCl (Zoloft -) 50 mg NGT DAILY [facility] Last Admin: 05/16/18 11:27 Dose: 50 mg Sodium Chloride (Sodium Chloride Tablet -) 1 gm NGT DAILY [facility] Last Admin: 05/16/18 11:27 Dose: 1 gm Vancomycin HCl (Vancomycin Oral Solution) 125 mg NGT Q6HPO [facility] Zinc Sulfate (Orazinc -) 220 mg NGT DAILY [facility] Last Admin: 05/16/18 11:27 Dose: 220 mg A/P Chronic Respiratory Failure Pneumonia likely Aspiration treated +C Diff Ag Multiple Sclerosis Functional Quadriplegia Hyponatremia resolved HTN Hypothyroidism Depression - antibiotics per ID - inhaled bronchodilators - spontaneous breathing trials as tolerated - can attempt trach collar during day if tolerating weaning trials - aspiration precautions - enteral feeds - DVT/GI prophylaxis
[2018-05-16] MEDS ORDERED: VANCOMYCIN 250 MG/5 ML ORAL SOLUTION PO SCH (12:00)
[2018-05-16] MEDS: VANCOMYCIN 250 MG/5 ML ORAL SOLUTION NGT SCH ×2 (12:03→18:23)
[2018-05-16] MEDS: ASCORBIC ACID 500 MG/5 ML UNIT DOSE CUP NGT SCH (12:05)
[2018-05-16] MEDS: MULTIVIT-MINERALS ORAL LIQUID NGT SCH (12:05)
--- NOTE | 2018-05-16 13:34 | PN ---
Progress Note, Physician Chief Complaint: patient seen and examined recieving feeds via ng tube c diff positive on po vancomycin - Current Medication List Current Medications: Active Medications Acetaminophen (Tylenol Oral Solution -) 650 mg NGT Q6H PRN PRN Reason: FEVER Last Admin: 05/11/18 22:29 Dose: 650 mg Albuterol/Ipratropium (Duoneb -) 1 amp NEB RQID [facility] Last Admin: 05/16/18 11:43 Dose: 1 amp Ascorbic Acid (Vitamin C Oral Solution -) 500 mg NGT DAILY [facility] Last Admin: 05/16/18 12:05 Dose: 500 mg Bacitracin (Bacitracin -) 1 applic TP BID [facility] Last Admin: 05/16/18 09:55 Dose: 1 applic Carbamazepine (Tegretol -) 100 mg NGT TID [facility] Last Admin: 05/16/18 06:23 Dose: 100 mg Clonazepam (Klonopin -) 1 mg NGT HS PRN PRN Reason: INSOMNIA Last Admin: 05/15/18 21:15 Dose: 1 mg Collagenase (Santyl -) 1 applic TP DAILY [facility]; Protocol Last Admin: 05/16/18 09:54 Dose: 1 applic Cyanocobalamin (Vitamin B12 -) 1,000 mcg NGT DAILY [facility] Last Admin: 05/16/18 11:27 Dose: 1,000 mcg Ferrous Sulfate (Feosol) 300 mg NGT DAILY [facility] Last Admin: 05/16/18 11:27 Dose: 300 mg Folic Acid (Folic Acid -) 1 mg NGT DAILY [facility] Last Admin: 05/16/18 11:26 Dose: 1 mg Hydralazine HCl (Apresoline -) 50 mg NGT TID [facility] Last Admin: 05/16/18 06:23 Dose: Not Given Piperacillin Sod/Tazobactam (Sod 4.5 gm/ Dextrose) 100 mls @ 200 mls/hr IVPB Q8H-IV [facility]; Protocol Last Admin: 05/16/18 11:26 Dose: 200 mls/hr Vancomycin HCl 1,250 mg/ (Dextrose) 250 mls @ 250 mls/2 hr IVPB Q24H [facility]; Protocol Last Admin: 05/15/18 15:37 Dose: 250 mls/2 hr Lactobacillus Acidophilus (Bacid -) 1 tab NGT BID [facility] Last Admin: 05/16/18 11:26 Dose: 1 tab Levothyroxine Sodium (Synthroid -) 100 mcg NGT DAILY@0700 [facility] Last Admin: 05/16/18 06:23 Dose: 100 mcg Loratadine (Claritin -) 10 mg NGT DAILY [facility] Last Admin: 05/16/18 11:26 Dose: 10 mg Metoprolol Tartrate (Lopressor -) 50 mg NGT BID [facility] Last Admin: 05/16/18 11:27 Dose: 50 mg Mirtazapine (Remeron -) 7.5 mg NGT HS [facility] Last Admin: 05/15/18 21:17 Dose: 7.5 mg Nystatin/Triamcinolone Acetonide (Mycolog Ii Ointment -) 1 applic TP BID [facility] Last Admin: 05/16/18 11:28 Dose: 1 applic Pantoprazole Sodium (Protonix Iv) 40 mg IVPUSH BID [facility] Last Admin: 05/16/18 11:26 Dose: 40 mg Potassium Phos/Sodium Phos (Phos-Nak Packet -) 1 packet NGT DAILY [facility] Last Admin: 05/16/18 11:26 Dose: 1 packet Sertraline HCl (Zoloft -) 50 mg NGT DAILY [facility] Last Admin: 05/16/18 11:27 Dose: 50 mg Sodium Chloride (Sodium Chloride Tablet -) 1 gm NGT DAILY [facility] Last Admin: 05/16/18 11:27 Dose: 1 gm Vancomycin HCl (Vancomycin Oral Solution) 125 mg NGT Q6HPO [facility] Last Admin: 05/16/18 12:03 Dose: Not Given Zinc Sulfate (Orazinc -) 220 mg NGT DAILY [facility] Last Admin: 05/16/18 11:27 Dose: 220 mg - Objective Vital Signs: Vital Signs Temperature 98.3 F 05/16/18 09:59 Pulse Rate 85 05/16/18 09:59 Respiratory Rate 10 05/16/18 11:41 Blood Pressure 113/67 05/16/18 09:59 O2 Sat by Pulse Oximetry (%) 96 05/16/18 08:15 Constitutional: Yes: Calm, Thin HENT: Yes: Other (ng tube) Cardiovascular: Yes: Regular Rate and Rhythm, S1, S2 Respiratory: Yes: Diminished, Mechanically Ventilated Gastrointestinal: Yes: Normal Bowel Sounds, Soft Genitourinary: Yes: Perera Present Neurological: Yes: Pre-Existing Deficit Labs: CBC, BMP 05/16/18 07:15 05/16/18 07:15 Problem List - Problems (1) Hyponatremia Assessment/Plan: resolved Code(s): E87.1 - HYPO-OSMOLALITY AND HYPONATREMIA (2) Anemia Assessment/Plan: s/p prbc now h/h improved Code(s): D64.9 - ANEMIA, UNSPECIFIED (3) Hypothyroid Assessment/Plan: will switch back to synthroid 100mcg via ng tube daily Code(s): E03.9 - HYPOTHYROIDISM, UNSPECIFIED (4) Hyperkalemia Assessment/Plan: potassium imbalance resolved Code(s): E87.5 - HYPERKALEMIA (5) Hx of multiple sclerosis Assessment/Plan: vent support appreciate neurology note dvt ppx NG tube placed by IR for aspiration Code(s): Z86.69 - PERSONAL HISTORY OF DIS OF THE NERVOUS SYS AND SENSE ORGANS (6) Electrolyte imbalance Assessment/Plan: repeat labs ordered- na,k ,mag normal Code(s): E87.8 - OTH DISORDERS OF ELECTROLYTE AND FLUID BALANCE, NEC (7) Functional quadriplegia secondary to MS Assessment/Plan: perera frequent turn positon dr jeffries- wound consult noted dvt ppx pallitive care team Code(s): G35 - MULTIPLE SCLEROSIS; R53.2 - FUNCTIONAL QUADRIPLEGIA (8) Insomnia Assessment/Plan: in the hospital will give clonazzepam at night that what she takes at home and put her on the vent at night and in the morning till she is fully awake Code(s): G47.00 - INSOMNIA, UNSPECIFIED (9) Pneumonia Assessment/Plan: RLL on zosyn Code(s): J18.9 - PNEUMONIA, UNSPECIFIED ORGANISM Qualifiers: Pneumonia type: pneumonia due to methicillin-resistant Staphylococcus aureus (MRSA) (10) C. difficile diarrhea Assessment/Plan: po vancomycin Microbiology 05/14/18 12:00 Stool Clostridioides difficile Antigen - Final 05/14/18 12:00 Stool Clostridioides difficile Toxin Assay - Final Code(s): A04.72 - ENTEROCOLITIS D/T CLOSTRIDIUM DIFFICILE, NOT SPCF RECUR
--- NOTE | 2018-05-16 15:07 | PN ---
Progress Note, BUSINESS CONTINUITY CONSULTANT - Note Progress Note: Selected Entries 05/16/18 05/16/18 05/16/18 02:00 06:00 09:59 Lunch Temperature 99.8 F H 98.8 F 98.3 F 05/16/18 12:32 Lunch NPO Temperature Laboratory Tests 05/16/18 07:15 WBC 6.9 Chart reviewed and case discussed with nursing. Pt with NGT feedings, deciding on PEG. Pt sleeping, weak, now with CDiff. Defer MBS until stronger. Pt will likely benefit from PEG until strong enough for MBS/PO trials
[2018-05-16] MEDS: VANCOMYCIN HCL 1,250 MG in DEXTROSE 5%-WATER - 250 ML IVPB SCH (16:30)
[2018-05-16] MEDS: MIRTAZAPINE 15 MG TABLET (FP) NGT SCH (22:27)
[2018-05-16] MEDS: clonazePAM 0.5 MG TABLET PO PRN (22:42)
[2018-05-17] MEDS ORDERED: PT OWN MED DRAWER 7, Y5N ONE ×5 (00:29→22:45)
[2018-05-17] MEDS: VANCOMYCIN 250 MG/5 ML ORAL SOLUTION NGT SCH ×5 (00:45→23:08)
[2018-05-17] MEDS ORDERED: DEXTROSE 5%-WATER 100 ML IVPB ONE ×2 (02:35→17:33)
[2018-05-17] MEDS ORDERED: PIPERACILLIN/TAZOBACTAM 4.5 GM VIAL IVPB ONE ×3 (02:35→17:32)
[2018-05-17] MEDS: PIPERACILLIN/TAZOB 4.5 GM 4.5 GM in DEXTROSE 5%-WATER 100 ML IVPB SCH ×3 (02:44→17:41)
[2018-05-17] MEDS: hydrALAZINE HCL 50 MG TABLET (FP) NGT SCH ×3 (06:28→22:43)
[2018-05-17] MEDS: LEVOTHYROXINE NA 100 MCG TABLET (FP) NGT SCH (06:28)
[2018-05-17] MEDS: carBAMazepine 100 MG TAB.CHEW NGT SCH ×3 (06:28→22:46)
[2018-05-17] MEDS: ALBUTEROL SO4 2.5/IPRATROPIUM 0.5 INH SOL 3 ML VIAL.NEB. NEB SCH ×4 (08:50→20:02)
[2018-05-17 09:35] LABS: ALK PHOS 135 U/L (45-117); ANION GAP 6 MMOL/L (8-16); BILIRUBIN,TOTAL 0.3 mg/dL (0.2-1); BLOOD UREA NITROGEN 22 mg/dL (7-18); CALCIUM 8.2 mg/dL (8.5-10.1); CHLORIDE 98 mmol/L (98-107); CO2 34 mmol/L (21-32); CREATININE 0.6 mg/dL (0.55-1.3); GLUCOSE,RANDOM 85 mg/dL (74-106); MAGNESIUM 2.3 mg/dL (1.8-2.4); POTASSIUM 4.3 mmol/L (3.5-5.1); SGOT/AST 16 U/L (15-37); SGPT/ALT 20 U/L (13-61); SODIUM 138 mmol/L (136-145); TOT PROT 6.7 g/dl (6.4-8.2)
[2018-05-17] MEDS: NYSTATIN/TRIAMCINOLONE TOPICAL OINTMENT 15 GM TUBE TP SCH ×2 (10:47→22:42)
--- NOTE | 2018-05-17 10:56 | PN ---
Progress Note (short form) - Note Progress Note: PULMONARY Vented on SIMV. Awake, alert. Denies shortness of breath. Vital Signs Period Temp Pulse Resp BP Sys/Morillo Pulse Ox Last 24 Hr 97.6 F-99.4 F 73-87 10-18 94-120/43-72 95-97 Gen: vented, awake Heart: RRR Lung: decreased breath sounds at the bases Abd: soft, nontender Ext: no edema CBC, BMP 05/16/18 07:15 05/17/18 08:40 Active Medications Acetaminophen (Tylenol Oral Solution -) 650 mg NGT Q6H PRN PRN Reason: FEVER Last Admin: 05/11/18 22:29 Dose: 650 mg Albuterol/Ipratropium (Duoneb -) 1 amp NEB RQID [facility] Last Admin: 05/17/18 08:50 Dose: 1 amp Ascorbic Acid (Vitamin C Oral Solution -) 500 mg NGT DAILY [facility] Last Admin: 05/16/18 12:05 Dose: 500 mg Bacitracin (Bacitracin -) 1 applic TP BID [facility] Last Admin: 05/16/18 22:26 Dose: 1 applic Carbamazepine (Tegretol -) 100 mg NGT TID [facility] Last Admin: 05/17/18 06:28 Dose: 100 mg Clonazepam (Klonopin -) 1 mg PO HS PRN PRN Reason: INSOMNIA Last Admin: 05/16/18 22:42 Dose: 1 mg Collagenase (Santyl -) 1 applic TP DAILY [facility]; Protocol Last Admin: 05/16/18 09:54 Dose: 1 applic Cyanocobalamin (Vitamin B12 -) 1,000 mcg NGT DAILY [facility] Last Admin: 05/16/18 11:27 Dose: 1,000 mcg Ferrous Sulfate (Feosol) 300 mg NGT DAILY [facility] Last Admin: 05/16/18 11:27 Dose: 300 mg Folic Acid (Folic Acid -) 1 mg NGT DAILY [facility] Last Admin: 05/16/18 11:26 Dose: 1 mg Hydralazine HCl (Apresoline -) 50 mg NGT TID [facility] Last Admin: 05/17/18 06:28 Dose: 50 mg Piperacillin Sod/Tazobactam (Sod 4.5 gm/ Dextrose) 100 mls @ 200 mls/hr IVPB Q8H-IV [facility]; Protocol Last Admin: 05/17/18 02:44 Dose: 200 mls/hr Vancomycin HCl 1,250 mg/ (Dextrose) 250 mls @ 250 mls/2 hr IVPB Q24H [facility]; Protocol Last Admin: 05/16/18 16:30 Dose: 250 mls/2 hr Lactobacillus Acidophilus (Bacid -) 1 tab NGT BID [facility] Last Admin: 05/16/18 22:25 Dose: 1 tab Levothyroxine Sodium (Synthroid -) 100 mcg NGT DAILY@0700 [facility] Last Admin: 05/17/18 06:28 Dose: 100 mcg Loratadine (Claritin -) 10 mg NGT DAILY [facility] Last Admin: 05/16/18 11:26 Dose: 10 mg Metoprolol Tartrate (Lopressor -) 50 mg NGT BID [facility] Last Admin: 05/16/18 22:26 Dose: Not Given Mirtazapine (Remeron -) 7.5 mg NGT HS [facility] Last Admin: 05/16/18 22:27 Dose: 7.5 mg Nystatin/Triamcinolone Acetonide (Mycolog Ii Ointment -) 1 applic TP BID [facility] Last Admin: 05/16/18 22:26 Dose: 1 applic Pantoprazole Sodium (Protonix Iv) 40 mg IVPUSH BID [facility] Last Admin: 05/16/18 22:26 Dose: 40 mg Potassium Phos/Sodium Phos (Phos-Nak Packet -) 1 packet NGT DAILY [facility] Last Admin: 05/16/18 11:26 Dose: 1 packet Sertraline HCl (Zoloft -) 50 mg NGT DAILY [facility] Last Admin: 05/16/18 11:27 Dose: 50 mg Sodium Chloride (Sodium Chloride Tablet -) 1 gm NGT DAILY [facility] Last Admin: 05/16/18 11:27 Dose: 1 gm Vancomycin HCl (Vancomycin Oral Solution) 125 mg NGT Q6HPO [facility] Last Admin: 05/17/18 06:28 Dose: 125 mg Zinc Sulfate (Orazinc -) 220 mg NGT DAILY [facility] Last Admin: 05/16/18 11:27 Dose: 220 mg A/P Chronic Respiratory Failure Pneumonia likely Aspiration treated +C Diff Ag Multiple Sclerosis Functional Quadriplegia Hyponatremia resolved HTN Hypothyroidism Depression - antibiotics per ID - inhaled bronchodilators - spontaneous breathing trials as tolerated - can attempt trach collar during day if tolerating weaning trials - aspiration precautions - enteral feeds - DVT/GI prophylaxis
[2018-05-17] MEDS: METOPROLOL TARTRATE 50 MG TABLET (FP) NGT SCH ×2 (11:41→22:42)
[2018-05-17] MEDS: NAPH,MB-DB/K PH,MBDB POWDER PACKET NGT SCH (11:41)
[2018-05-17] MEDS: FERROUS SO4 300 MG/5 ML ORAL SOLN UNIT DOSE CUPS NGT SCH (11:41)
[2018-05-17] MEDS: CYANOCOBALAMIN 1,000 MCG TABLET (FP) NGT SCH (11:42)
[2018-05-17] MEDS: PANTOPRAZOLE SODIUM 40 MG VIAL IVPUSH SCH ×2 (11:42→22:41)
[2018-05-17] MEDS: SERTRALINE HCL 50 MG TABLET (FP) NGT SCH (11:42)
[2018-05-17] MEDS: FOLIC ACID 1 MG TABLET (FP) NGT SCH (11:42)
[2018-05-17] MEDS: LACTOBACILLUS ACIDOPHILUS 1 TABLET NGT SCH ×2 (11:42→22:43)
[2018-05-17] MEDS: ZINC SULFATE 220 MG CAPSULE (FP) NGT SCH (11:43)
--- NOTE | 2018-05-17 11:50 | PN ---
Progress Note (short form) - Note Progress Note: Renal follow up for Hyponatremia Pt seen and examined at the bedside on vent awake and alert has loose BM this am no fever, chills no sob on vent, SIMV Vital Signs Temperature 98.1 F 05/17/18 11:39 Pulse Rate 80 05/17/18 11:39 Respiratory Rate 18 05/17/18 11:39 Blood Pressure 104/57 L 05/17/18 11:39 O2 Sat by Pulse Oximetry (%) 95 05/17/18 08:49 NAD on vent via trach No edema in LE CBC, BMP 05/16/18 07:15 05/17/18 08:40 Current Medications Acetaminophen (Tylenol Oral Solution -) 650 mg NGT Q6H PRN PRN Reason: FEVER Last Admin: 05/11/18 22:29 Dose: 650 mg Albuterol/Ipratropium (Duoneb -) 1 amp NEB RQID [facility] Last Admin: 05/17/18 11:10 Dose: 1 amp Ascorbic Acid (Vitamin C Oral Solution -) 500 mg NGT DAILY [facility] Last Admin: 05/16/18 12:05 Dose: 500 mg Bacitracin (Bacitracin -) 1 applic TP BID [facility] Last Admin: 05/16/18 22:26 Dose: 1 applic Carbamazepine (Tegretol -) 100 mg NGT TID [facility] Last Admin: 05/17/18 06:28 Dose: 100 mg Clonazepam (Klonopin -) 1 mg PO HS PRN PRN Reason: INSOMNIA Last Admin: 05/16/18 22:42 Dose: 1 mg Collagenase (Santyl -) 1 applic TP DAILY [facility]; Protocol Last Admin: 05/16/18 09:54 Dose: 1 applic Cyanocobalamin (Vitamin B12 -) 1,000 mcg NGT DAILY [facility] Last Admin: 05/16/18 11:27 Dose: 1,000 mcg Ferrous Sulfate (Feosol) 300 mg NGT DAILY [facility] Last Admin: 05/16/18 11:27 Dose: 300 mg Folic Acid (Folic Acid -) 1 mg NGT DAILY [facility] Last Admin: 05/16/18 11:26 Dose: 1 mg Hydralazine HCl (Apresoline -) 50 mg NGT TID [facility] Last Admin: 05/17/18 06:28 Dose: 50 mg Piperacillin Sod/Tazobactam (Sod 4.5 gm/ Dextrose) 100 mls @ 200 mls/hr IVPB Q8H-IV [facility]; Protocol Last Admin: 05/17/18 02:44 Dose: 200 mls/hr Vancomycin HCl 1,250 mg/ (Dextrose) 250 mls @ 250 mls/2 hr IVPB Q24H [facility]; Protocol Last Admin: 05/16/18 16:30 Dose: 250 mls/2 hr Lactobacillus Acidophilus (Bacid -) 1 tab NGT BID [facility] Last Admin: 05/16/18 22:25 Dose: 1 tab Levothyroxine Sodium (Synthroid -) 100 mcg NGT DAILY@0700 [facility] Last Admin: 05/17/18 06:28 Dose: 100 mcg Loratadine (Claritin -) 10 mg NGT DAILY [facility] Last Admin: 05/16/18 11:26 Dose: 10 mg Metoprolol Tartrate (Lopressor -) 50 mg NGT BID [facility] Last Admin: 05/16/18 22:26 Dose: Not Given Mirtazapine (Remeron -) 7.5 mg NGT HS [facility] Last Admin: 05/16/18 22:27 Dose: 7.5 mg Nystatin/Triamcinolone Acetonide (Mycolog Ii Ointment -) 1 applic TP BID [facility] Last Admin: 05/16/18 22:26 Dose: 1 applic Pantoprazole Sodium (Protonix Iv) 40 mg IVPUSH BID [facility] Last Admin: 05/16/18 22:26 Dose: 40 mg Potassium Phos/Sodium Phos (Phos-Nak Packet -) 1 packet NGT DAILY [facility] Last Admin: 05/16/18 11:26 Dose: 1 packet Sertraline HCl (Zoloft -) 50 mg NGT DAILY [facility] Last Admin: 05/16/18 11:27 Dose: 50 mg Sodium Chloride (Sodium Chloride Tablet -) 1 gm NGT DAILY [facility] Last Admin: 05/16/18 11:27 Dose: 1 gm Vancomycin HCl (Vancomycin Oral Solution) 125 mg NGT Q6HPO [facility] Last Admin: 05/17/18 06:28 Dose: 125 mg Zinc Sulfate (Orazinc -) 220 mg NGT DAILY [facility] Last Admin: 05/16/18 11:27 Dose: 220 mg 53 year old woman with hx of Multple Sclerosis, Hypertension, Hyperlipidemia, Hypothyroidism, trigeminal neualgia, hx of hyponatremia/SIADH who presented with low serum Na as an outpatient and admitted with acute worsening of serum Na. #Acute on Chronic hyponatremia likely due to SIADH #Multiple Sclerosis #Anemia #Hypertension #Small pleural effusion #Hypothyroidism Serum Sodium and renal function stable continue salt tab once daily and fluid restriction Abx as per ID trend electrolytes daily Thank you Tyshawn Doe DO
[2018-05-17] MEDS: ASCORBIC ACID 500 MG/5 ML UNIT DOSE CUP NGT SCH (12:52)
[2018-05-17] MEDS: SODIUM CHLORIDE 1 GM TABLET NGT SCH (12:53)
[2018-05-17] MEDS: LORATADINE 10 MG TABLET NGT SCH (12:53)
[2018-05-17] MEDS: MULTIVIT-MINERALS ORAL LIQUID NGT SCH (12:53)
[2018-05-17] MEDS: VANCOMYCIN HCL 1,250 MG in DEXTROSE 5%-WATER - 250 ML IVPB SCH (14:36)
--- NOTE | 2018-05-17 14:36 | PN ---
Progress Note, Physician Chief Complaint: Hyponatremia AMS C-diff History of Present Illness: Previous notes and events reviewed awake and alert NAD c/o diarrhea - Current Medication List Current Medications: Active Medications Acetaminophen (Tylenol Oral Solution -) 650 mg NGT Q6H PRN PRN Reason: FEVER Last Admin: 05/11/18 22:29 Dose: 650 mg Albuterol/Ipratropium (Duoneb -) 1 amp NEB RQID [facility] Last Admin: 05/17/18 11:10 Dose: 1 amp Ascorbic Acid (Vitamin C Oral Solution -) 500 mg NGT DAILY REPLACED BY [facility] Last Admin: 05/17/18 12:52 Dose: 500 mg Bacitracin (Bacitracin -) 1 applic TP BID REPLACED BY [facility] Last Admin: 05/16/18 22:26 Dose: 1 applic Carbamazepine (Tegretol -) 100 mg NGT TID REPLACED BY [facility] Last Admin: 05/17/18 06:28 Dose: 100 mg Clonazepam (Klonopin -) 1 mg PO HS PRN PRN Reason: INSOMNIA Last Admin: 05/16/18 22:42 Dose: 1 mg Collagenase (Santyl -) 1 applic TP DAILY REPLACED BY [facility]; Protocol Last Admin: 05/16/18 09:54 Dose: 1 applic Cyanocobalamin (Vitamin B12 -) 1,000 mcg NGT DAILY REPLACED BY [facility] Last Admin: 05/17/18 11:42 Dose: 1,000 mcg Ferrous Sulfate (Feosol) 300 mg NGT DAILY REPLACED BY [facility] Last Admin: 05/17/18 11:41 Dose: 300 mg Folic Acid (Folic Acid -) 1 mg NGT DAILY REPLACED BY [facility] Last Admin: 05/17/18 11:42 Dose: 1 mg Hydralazine HCl (Apresoline -) 50 mg NGT TID REPLACED BY [facility] Last Admin: 05/17/18 06:28 Dose: 50 mg Piperacillin Sod/Tazobactam (Sod 4.5 gm/ Dextrose) 100 mls @ 200 mls/hr IVPB Q8H-IV [facility]; Protocol Last Admin: 05/17/18 12:00 Dose: 200 mls/hr Vancomycin HCl 1,250 mg/ (Dextrose) 250 mls @ 250 mls/2 hr IVPB Q24H [facility]; Protocol Last Admin: 05/16/18 16:30 Dose: 250 mls/2 hr Lactobacillus Acidophilus (Bacid -) 1 tab NGT BID REPLACED BY [facility] Last Admin: 05/17/18 11:42 Dose: 1 tab Levothyroxine Sodium (Synthroid -) 100 mcg NGT DAILY@0700 REPLACED BY [facility] Last Admin: 05/17/18 06:28 Dose: 100 mcg Loratadine (Claritin -) 10 mg NGT DAILY REPLACED BY [facility] Last Admin: 05/17/18 12:53 Dose: 10 mg Metoprolol Tartrate (Lopressor -) 50 mg NGT BID REPLACED BY [facility] Last Admin: 05/17/18 11:41 Dose: 50 mg Mirtazapine (Remeron -) 7.5 mg NGT HS REPLACED BY [facility] Last Admin: 05/16/18 22:27 Dose: 7.5 mg Nystatin/Triamcinolone Acetonide (Mycolog Ii Ointment -) 1 applic TP BID REPLACED BY [facility] Last Admin: 05/16/18 22:26 Dose: 1 applic Pantoprazole Sodium (Protonix Iv) 40 mg IVPUSH BID REPLACED BY [facility] Last Admin: 05/17/18 11:42 Dose: 40 mg Potassium Phos/Sodium Phos (Phos-Nak Packet -) 1 packet NGT DAILY REPLACED BY [facility] Last Admin: 05/17/18 11:41 Dose: 1 packet Sertraline HCl (Zoloft -) 50 mg NGT DAILY REPLACED BY [facility] Last Admin: 05/17/18 11:42 Dose: 50 mg Sodium Chloride (Sodium Chloride Tablet -) 1 gm NGT DAILY REPLACED BY [facility] Last Admin: 05/17/18 12:53 Dose: 1 gm Vancomycin HCl (Vancomycin Oral Solution) 125 mg NGT Q6HPO REPLACED BY [facility] Last Admin: 05/17/18 12:52 Dose: 125 mg Zinc Sulfate (Orazinc -) 220 mg NGT DAILY REPLACED BY [facility] Last Admin: 05/17/18 11:43 Dose: 220 mg - Objective Vital Signs: Vital Signs Temperature 98.1 F 05/17/18 11:39 Pulse Rate 80 05/17/18 11:39 Respiratory Rate 18 05/17/18 11:39 Blood Pressure 104/57 L 05/17/18 11:39 O2 Sat by Pulse Oximetry (%) 95 05/17/18 08:49 Constitutional: Yes: No Distress, Calm Eyes: Yes: Conjunctiva Clear HENT: Yes: Atraumatic, Other (NGT) Neck: Yes: Other (trach) Cardiovascular: Yes: Regular Rate and Rhythm Respiratory: Yes: Diminished, Mechanically Ventilated Gastrointestinal: Yes: Normal Bowel Sounds, Soft, Other (non tender) Genitourinary: Yes: Raza Present Musculoskeletal: Yes: Joint Stiffness, Muscle Weakness Edema: No Peripheral Pulses WNL: Yes Neurological: Yes: Alert, Oriented Psychiatric: Yes: Alert, Oriented Labs: CBC, BMP 05/16/18 07:15 05/17/18 08:40 Microbiology 05/14/18 12:00 Stool Clostridioides difficile Antigen - Final 05/14/18 12:00 Stool Clostridioides difficile Toxin Assay - Final 05/08/18 17:00 Blood - Peripheral Venous Blood Culture - Final NO GROWTH AFTER 5 DAYS INCUBATION 05/08/18 17:00 Blood - Peripheral Venous Blood Culture - Final NO GROWTH AFTER 5 DAYS INCUBATION 05/06/18 11:20 Blood - Peripheral Venous Blood Culture - Final NO GROWTH AFTER 5 DAYS INCUBATION 05/06/18 11:38 Blood - Peripheral Venous Blood Culture - Final NO GROWTH AFTER 5 DAYS INCUBATION 05/06/18 18:30 Sputum - Endotrachea Suction/Ventilator Gram Stain - Final 05/06/18 18:30 Sputum - Endotrachea Suction/Ventilator Sputum Culture - Final Pseudomonas Aeruginosa Serratia Marcescens Mr S Aureus 05/08/18 19:00 Urine - Urine Raza Legionella Antigen - Final 05/08/18 19:00 Urine - Urine Raza Streptococcus pneumoniae Antigen (M - Final 05/03/18 17:40 Blood - Peripheral Venous Blood Culture - Final NO GROWTH AFTER 5 DAYS INCUBATION 05/03/18 17:40 Blood - Peripheral Venous Blood Culture - Final NO GROWTH AFTER 5 DAYS INCUBATION 05/06/18 14:30 Urine - Urine Raza Urine Culture - Final Contaminated: Please Repeat 05/03/18 17:40 Urine - Urine Clean Catch Urine Culture - Final Contaminated: Please Repeat <Emma Yoon - Last Filed: 05/17/18 14:30> - Current Medication List Current Medications: Active Medications Acetaminophen (Tylenol Oral Solution -) 650 mg NGT Q6H PRN PRN Reason: FEVER Last Admin: 05/17/18 22:44 Dose: 650 mg Albuterol/Ipratropium (Duoneb -) 1 amp NEB RQID REPLACED BY [facility] Last Admin: 05/18/18 08:07 Dose: 1 amp Ascorbic Acid (Vitamin C Oral Solution -) 500 mg NGT DAILY REPLACED BY [facility] Last Admin: 05/17/18 12:52 Dose: 500 mg Bacitracin (Bacitracin -) 1 applic TP BID REPLACED BY [facility] Last Admin: 05/17/18 22:42 Dose: 1 applic Carbamazepine (Tegretol -) 100 mg NGT TID REPLACED BY [facility] Last Admin: 05/18/18 05:59 Dose: 100 mg Clonazepam (Klonopin -) 1 mg PO HS PRN PRN Reason: INSOMNIA Last Admin: 05/17/18 22:43 Dose: 1 mg Collagenase (Santyl -) 1 applic TP DAILY REPLACED BY [facility]; Protocol Last Admin: 05/18/18 07:47 Dose: 1 applic Cyanocobalamin (Vitamin B12 -) 1,000 mcg NGT DAILY REPLACED BY [facility] Last Admin: 05/17/18 11:42 Dose: 1,000 mcg Ferrous Sulfate (Feosol) 300 mg NGT DAILY REPLACED BY [facility] Last Admin: 05/17/18 11:41 Dose: 300 mg Folic Acid (Folic Acid -) 1 mg NGT DAILY REPLACED BY [facility] Last Admin: 05/17/18 11:42 Dose: 1 mg Hydralazine HCl (Apresoline -) 50 mg NGT TID REPLACED BY [facility] Last Admin: 05/18/18 05:59 Dose: Not Given Piperacillin Sod/Tazobactam (Sod 4.5 gm/ Dextrose) 100 mls @ 200 mls/hr IVPB Q8H-IV [facility]; Protocol Last Admin: 05/18/18 01:19 Dose: 200 mls/hr Vancomycin HCl 1,250 mg/ (Dextrose) 250 mls @ 250 mls/2 hr IVPB Q24H [facility]; Protocol Last Admin: 05/17/18 14:36 Dose: 250 mls/2 hr Lactobacillus Acidophilus (Bacid -) 1 tab NGT BID REPLACED BY [facility] Last Admin: 05/17/18 22:43 Dose: 1 tab Levothyroxine Sodium (Synthroid -) 100 mcg NGT DAILY@0700 REPLACED BY [facility] Last Admin: 05/18/18 05:59 Dose: 100 mcg Loratadine (Claritin -) 10 mg NGT DAILY REPLACED BY [facility] Last Admin: 05/17/18 12:53 Dose: 10 mg Metoprolol Tartrate (Lopressor -) 50 mg NGT BID REPLACED BY [facility] Last Admin: 05/17/18 22:42 Dose: Not Given Mirtazapine (Remeron -) 7.5 mg NGT HS REPLACED BY [facility] Last Admin: 05/17/18 22:44 Dose: 7.5 mg Nystatin/Triamcinolone Acetonide (Mycolog Ii Ointment -) 1 applic TP BID REPLACED BY [facility] Last Admin: 05/17/18 22:42 Dose: 1 applic Pantoprazole Sodium (Protonix Iv) 40 mg IVPUSH BID REPLACED BY [facility] Last Admin: 05/17/18 22:41 Dose: 40 mg Potassium Phos/Sodium Phos (Phos-Nak Packet -) 1 packet NGT DAILY REPLACED BY [facility] Last Admin: 05/17/18 11:41 Dose: 1 packet Sertraline HCl (Zoloft -) 50 mg NGT DAILY REPLACED BY [facility] Last Admin: 05/17/18 11:42 Dose: 50 mg Sodium Chloride (Sodium Chloride Tablet -) 1 gm NGT DAILY REPLACED BY [facility] Last Admin: 05/17/18 12:53 Dose: 1 gm Vancomycin HCl (Vancomycin Oral Solution) 125 mg NGT Q6HPO REPLACED BY [facility] Last Admin: 05/18/18 06:00 Dose: 125 mg Zinc Sulfate (Orazinc -) 220 mg NGT DAILY REPLACED BY [facility] Last Admin: 05/17/18 11:43 Dose: 220 mg - Objective Vital Signs: Vital Signs Temperature 98.3 F 05/18/18 06:00 Pulse Rate 67 05/18/18 08:06 Respiratory Rate 13 05/18/18 08:06 Blood Pressure 95/53 L 05/18/18 06:00 O2 Sat by Pulse Oximetry (%) 97 05/18/18 08:06 Labs: CBC, BMP 05/18/18 06:00 05/18/18 06:00 <Hilario Myers - Last Filed: 05/18/18 08:42> Problem List - Problems (1) Abnormal LFTs Assessment/Plan: -monitor LFTs -LFTs showing downtrend with Alk phos 135 and AST/ALT nl Code(s): R94.5 - ABNORMAL RESULTS OF LIVER FUNCTION STUDIES (2) Anemia Assessment/Plan: -monitor Hg daily -transfuse for Hg <8.0 -current Hg 9.5 Code(s): D64.9 - ANEMIA, UNSPECIFIED (3) C. difficile diarrhea Assessment/Plan: -contact precaution -continue with vancomycin PO -positve c-diff antigen Code(s): A04.72 - ENTEROCOLITIS D/T CLOSTRIDIUM DIFFICILE, NOT SPCF RECUR (4) Functional quadriplegia secondary to MS Assessment/Plan: -turn and position q2h -FC -dvt ppx Code(s): G35 - MULTIPLE SCLEROSIS; R53.2 - FUNCTIONAL QUADRIPLEGIA (5) Hypothyroid Assessment/Plan: -continue with levothyroxine Code(s): E03.9 - HYPOTHYROIDISM, UNSPECIFIED (6) Hyperkalemia Assessment/Plan: -resolved -current K 4.3 Code(s): E87.5 - HYPERKALEMIA (7) Hyponatremia Assessment/Plan: -resolved -current Na 138 Code(s): E87.1 - HYPO-OSMOLALITY AND HYPONATREMIA (8) Pneumonia Assessment/Plan: -CXR shows right base atelectasis and/or infiltrate -IV zosyn and vancomycin -pulm on board -maintain SpO2 >90% -duoneb tx PRN for SOB Code(s): J18.9 - PNEUMONIA, UNSPECIFIED ORGANISM Qualifiers: Pneumonia type: pneumonia due to methicillin-resistant Staphylococcus aureus (MRSA) (9) HTN (hypertension) Assessment/Plan: -continue with hydralazine and metoprolol -hold BP meds if SBP <110 and/or DBP <70 Code(s): I10 - ESSENTIAL (PRIMARY) HYPERTENSION (10) Hx of multiple sclerosis Assessment/Plan: -ventilator dependent -NGT--hold feeds if residual shows >60cc and notify MD -neurology on board Code(s): Z86.69 - PERSONAL HISTORY OF DIS OF THE NERVOUS SYS AND SENSE ORGANS <Emma Yoon - Last Filed: 05/17/18 14:30> - Problems (1) Abnormal LFTs Code(s): R94.5 - ABNORMAL RESULTS OF LIVER FUNCTION STUDIES (2) Anemia Code(s): D64.9 - ANEMIA, UNSPECIFIED (3) Functional 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 (4) Hyponatremia Code(s): E87.1 - HYPO-OSMOLALITY AND HYPONATREMIA (5) Chronic hypercapnic respiratory failure Code(s): J96.12 - CHRONIC RESPIRATORY FAILURE WITH HYPERCAPNIA (6) Decubital ulcer Code(s): L89.90 - PRESSURE ULCER OF UNSPECIFIED SITE, UNSPECIFIED STAGE Qualifiers: Pressure injury location: unspecified location Pressure injury stage: unspecified pressure injury stage Qualified Code(s): L89.90 - Pressure ulcer of unspecified site, unspecified stage (7) Multiple sclerosis Code(s): G35 - MULTIPLE SCLEROSIS (8) Muscle spasticity Code(s): M62.838 - OTHER MUSCLE SPASM (9) Muscle stiffness Code(s): M62.89 - OTHER SPECIFIED DISORDERS OF MUSCLE <Hilario Myers - Last Filed: 05/18/18 08:42> Assessment/Plan see problem list dvt ppx <Emma Yoon - Last Filed: 05/17/18 14:30> PATIENT SEEN AND EXAMINED AND I AGREE WITH ABOVE NOTE <Hilario Myers - Last Filed: 05/18/18 08:42>
--- NOTE | 2018-05-17 15:24 | PN ---
Progress Note (short form) - Note Progress Note: awake and alert trach to vent now with ngt-receiving tube feeds one bm today Vital Signs Period Temp Pulse Resp BP Sys/Morillo Pulse Ox Last 24 Hr 98.1 F-99.4 F 73-87 10-18 94-120/48-72 95-97 trach to vent cor-rrr lungs decreased bs at bases abd soft,nt ext no edema CBC, BMP 05/16/18 07:15 05/17/18 08:40 Microbiology 05/14/18 12:00 Stool Clostridioides difficile Antigen - Final 05/14/18 12:00 Stool Clostridioides difficile Toxin Assay - Final 05/08/18 17:00 Blood - Peripheral Venous Blood Culture - Final NO GROWTH AFTER 5 DAYS INCUBATION 05/08/18 17:00 Blood - Peripheral Venous Blood Culture - Final NO GROWTH AFTER 5 DAYS INCUBATION 05/06/18 11:20 Blood - Peripheral Venous Blood Culture - Final NO GROWTH AFTER 5 DAYS INCUBATION 05/06/18 11:38 Blood - Peripheral Venous Blood Culture - Final NO GROWTH AFTER 5 DAYS INCUBATION 05/06/18 18:30 Sputum - Endotrachea Suction/Ventilator Gram Stain - Final 05/06/18 18:30 Sputum - Endotrachea Suction/Ventilator Sputum Culture - Final Pseudomonas Aeruginosa Serratia Marcescens Mr S Aureus 05/08/18 19:00 Urine - Urine Raza Legionella Antigen - Final 05/08/18 19:00 Urine - Urine Raza Streptococcus pneumoniae Antigen (M - Final 05/03/18 17:40 Blood - Peripheral Venous Blood Culture - Final NO GROWTH AFTER 5 DAYS INCUBATION 05/03/18 17:40 Blood - Peripheral Venous Blood Culture - Final NO GROWTH AFTER 5 DAYS INCUBATION 05/06/18 14:30 Urine - Urine Raza Urine Culture - Final Contaminated: Please Repeat 05/03/18 17:40 Urine - Urine Clean Catch Urine Culture - Final Contaminated: Please Repeat imp/reccd RLL pneumonia vancomycin and zosyn day #9 repeat cxray unchanged ?cdiff- reports several loose stools, cdiff antigen positive given current antiibotic use will start po vancomycin vancoycin trough in a respiratory failure chronic MS with functional quadraplegia Problem List - Problems (1) Leukocytosis Code(s): D72.829 - ELEVATED WHITE BLOOD CELL COUNT, UNSPECIFIED (2) Hyponatremia Code(s): E87.1 - HYPO-OSMOLALITY AND HYPONATREMIA (3) Chronic respiratory failure Code(s): J96.10 - CHRONIC RESPIRATORY FAILURE, UNSP W HYPOXIA OR HYPERCAPNIA (4) Functional 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
--- NOTE | 2018-05-17 17:27 | PN ---
Progress Note, [employer] - Note Progress Note: Good spirits.Strongly considering PEG. Feeling stronger, less congested. Hopefully as pt continues to get stronger with nourishment, and aspiration is minimized, goal is to try PMV again for communication and possible weaning from vent, and maybe MBS/some PO trials. My plan is to arrange for Geetha to hopefully obtain Computer for augmentative communication/using head control or eye gaze. Call placed to [employer] which provides free services for pts with ALS, to see if they will accept her. I will also reach out to [facility].
[2018-05-17] MEDS: BACITRACIN 15 GM TUBE TOPICAL OINTMENT TP SCH ×2 (17:41→22:42)
[2018-05-17] MEDS: clonazePAM 0.5 MG TABLET PO PRN (22:43)
[2018-05-17] MEDS: ACETAMINOPHEN 650 MG/20.3 ML ORAL SOLUTION (CUPS) NGT PRN (22:44)
[2018-05-17] MEDS: MIRTAZAPINE 15 MG TABLET (FP) NGT SCH (22:44)
[2018-05-18] MEDS ORDERED: PIPERACILLIN/TAZOBACTAM 4.5 GM VIAL IVPB ONE ×3 (01:11→15:43)
[2018-05-18] MEDS ORDERED: DEXTROSE 5%-WATER 100 ML IVPB ONE ×3 (01:12→15:43)
[2018-05-18] MEDS: PIPERACILLIN/TAZOB 4.5 GM 4.5 GM in DEXTROSE 5%-WATER 100 ML IVPB SCH ×3 (01:19→17:25)
[2018-05-18] MEDS: COLLAGENASE CLOSTRIDIUM HIST. 30 GRAMS TUBE TP SCH ×3 (05:58→10:46)
[2018-05-18] MEDS: carBAMazepine 100 MG TAB.CHEW NGT SCH ×3 (05:59→23:12)
[2018-05-18] MEDS: hydrALAZINE HCL 50 MG TABLET (FP) NGT SCH ×3 (05:59→23:06)
[2018-05-18] MEDS: LEVOTHYROXINE NA 100 MCG TABLET (FP) NGT SCH (05:59)
[2018-05-18] MEDS: VANCOMYCIN 250 MG/5 ML ORAL SOLUTION NGT SCH ×4 (06:00→23:16)
[2018-05-18] MEDS ORDERED: PT OWN MED DRAWER 7, Y5N ONE ×3 (06:41→15:05)
[2018-05-18 07:37] LABS: ALBUMIN 1.8 g/dl (3.4-5.0); ALK PHOS 121 U/L (45-117); ANION GAP 5 MMOL/L (8-16); BILIRUBIN,TOTAL 0.4 mg/dL (0.2-1); BLOOD UREA NITROGEN 23 mg/dL (7-18); CHLORIDE 99 mmol/L (98-107); CO2 33 mmol/L (21-32); CREATININE 0.5 mg/dL (0.55-1.3); GLUCOSE,RANDOM 103 mg/dL (74-106); POTASSIUM 4.2 mmol/L (3.5-5.1); SGOT/AST 15 U/L (15-37); SGPT/ALT 19 U/L (13-61); SODIUM 137 mmol/L (136-145); TOT PROT 6.3 g/dl (6.4-8.2)
[2018-05-18] MEDS: ALBUTEROL SO4 2.5/IPRATROPIUM 0.5 INH SOL 3 ML VIAL.NEB. NEB SCH ×4 (08:07→20:20)
[2018-05-18 08:26] LABS: HEMATOCRIT 25.6 % (32.4-45.2); HEMOGLOBIN 8.8 GM/dL (10.7-15.3); MCH 32.2 pg (25.7-33.7); MCHC 34.3 g/dl (32.0-36.0); MEAN CELL VOLUME 93.8 fl (80-96); MEAN PLT VOLUME 8.6 fl (7.5-11.1); PLATELET COUNT 337 K/MM3 (134-434); RBC 2.73 M/mm3 (3.60-5.2); RDW 15.9 % (11.6-15.6)
--- NOTE | 2018-05-18 08:43 | PN ---
Progress Note, Physician Chief Complaint: EVENTS AND NOTES REVIEWED NO ACUTE CHANGES OVERNIGHT - Current Medication List Current Medications: Active Medications Acetaminophen (Tylenol Oral Solution -) 650 mg NGT Q6H PRN PRN Reason: FEVER Last Admin: 05/17/18 22:44 Dose: 650 mg Albuterol/Ipratropium (Duoneb -) 1 amp NEB RQID [facility] Last Admin: 05/18/18 08:07 Dose: 1 amp Ascorbic Acid (Vitamin C Oral Solution -) 500 mg NGT DAILY [facility] Last Admin: 05/17/18 12:52 Dose: 500 mg Bacitracin (Bacitracin -) 1 applic TP BID [facility] Last Admin: 05/17/18 22:42 Dose: 1 applic Carbamazepine (Tegretol -) 100 mg NGT TID [facility] Last Admin: 05/18/18 05:59 Dose: 100 mg Clonazepam (Klonopin -) 1 mg PO HS PRN PRN Reason: INSOMNIA Last Admin: 05/17/18 22:43 Dose: 1 mg Collagenase (Santyl -) 1 applic TP DAILY [facility]; Protocol Last Admin: 05/18/18 07:47 Dose: 1 applic Cyanocobalamin (Vitamin B12 -) 1,000 mcg NGT DAILY [facility] Last Admin: 05/17/18 11:42 Dose: 1,000 mcg Ferrous Sulfate (Feosol) 300 mg NGT DAILY [facility] Last Admin: 05/17/18 11:41 Dose: 300 mg Folic Acid (Folic Acid -) 1 mg NGT DAILY [facility] Last Admin: 05/17/18 11:42 Dose: 1 mg Hydralazine HCl (Apresoline -) 50 mg NGT TID [facility] Last Admin: 05/18/18 05:59 Dose: Not Given Piperacillin Sod/Tazobactam (Sod 4.5 gm/ Dextrose) 100 mls @ 200 mls/hr IVPB Q8H-IV [facility]; Protocol Last Admin: 05/18/18 01:19 Dose: 200 mls/hr Vancomycin HCl 1,250 mg/ (Dextrose) 250 mls @ 250 mls/2 hr IVPB Q24H [facility]; Protocol Last Admin: 05/17/18 14:36 Dose: 250 mls/2 hr Lactobacillus Acidophilus (Bacid -) 1 tab NGT BID [facility] Last Admin: 05/17/18 22:43 Dose: 1 tab Levothyroxine Sodium (Synthroid -) 100 mcg NGT DAILY@0700 [facility] Last Admin: 05/18/18 05:59 Dose: 100 mcg Loratadine (Claritin -) 10 mg NGT DAILY [facility] Last Admin: 05/17/18 12:53 Dose: 10 mg Metoprolol Tartrate (Lopressor -) 50 mg NGT BID [facility] Last Admin: 05/17/18 22:42 Dose: Not Given Mirtazapine (Remeron -) 7.5 mg NGT HS [facility] Last Admin: 05/17/18 22:44 Dose: 7.5 mg Nystatin/Triamcinolone Acetonide (Mycolog Ii Ointment -) 1 applic TP BID [facility] Last Admin: 05/17/18 22:42 Dose: 1 applic Pantoprazole Sodium (Protonix Iv) 40 mg IVPUSH BID [facility] Last Admin: 05/17/18 22:41 Dose: 40 mg Potassium Phos/Sodium Phos (Phos-Nak Packet -) 1 packet NGT DAILY [facility] Last Admin: 05/17/18 11:41 Dose: 1 packet Sertraline HCl (Zoloft -) 50 mg NGT DAILY [facility] Last Admin: 05/17/18 11:42 Dose: 50 mg Sodium Chloride (Sodium Chloride Tablet -) 1 gm NGT DAILY [facility] Last Admin: 05/17/18 12:53 Dose: 1 gm Vancomycin HCl (Vancomycin Oral Solution) 125 mg NGT Q6HPO [facility] Last Admin: 05/18/18 06:00 Dose: 125 mg Zinc Sulfate (Orazinc -) 220 mg NGT DAILY [facility] Last Admin: 05/17/18 11:43 Dose: 220 mg - Objective Vital Signs: Vital Signs Temperature 98.3 F 05/18/18 06:00 Pulse Rate 67 05/18/18 08:06 Respiratory Rate 13 05/18/18 08:06 Blood Pressure 95/53 L 05/18/18 06:00 O2 Sat by Pulse Oximetry (%) 97 05/18/18 08:06 Constitutional: Yes: Mild Distress Cardiovascular: Yes: Regular Rate and Rhythm Respiratory: Yes: Mechanically Ventilated Gastrointestinal: Yes: Soft, Other (NGT) Genitourinary: Yes: Incontinence Musculoskeletal: Yes: Muscle Weakness Edema: Yes Edema: LLE: Trace, RLE: Trace Integumentary: Yes: Pressure Ulcer Wound/Incision: Yes: Dressing Dry and Intact, Excoriated Neurological: Yes: Pre-Existing Deficit, Weakness Labs: CBC, BMP 05/18/18 06:00 05/18/18 06:00 Problem List - Problems (1) Abnormal LFTs Code(s): R94.5 - ABNORMAL RESULTS OF LIVER FUNCTION STUDIES (2) Anemia Code(s): D64.9 - ANEMIA, UNSPECIFIED (3) Functional 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 (4) Hyponatremia Code(s): E87.1 - HYPO-OSMOLALITY AND HYPONATREMIA (5) Chronic hypercapnic respiratory failure Code(s): J96.12 - CHRONIC RESPIRATORY FAILURE WITH HYPERCAPNIA (6) Decubital ulcer Code(s): L89.90 - PRESSURE ULCER OF UNSPECIFIED SITE, UNSPECIFIED STAGE Qualifiers: Pressure injury location: unspecified location Pressure injury stage: unspecified pressure injury stage Qualified Code(s): L89.90 - Pressure ulcer of unspecified site, unspecified stage (7) Multiple sclerosis Code(s): G35 - MULTIPLE SCLEROSIS (8) Muscle spasticity Code(s): M62.838 - OTHER MUSCLE SPASM (9) Muscle stiffness Code(s): M62.89 - OTHER SPECIFIED DISORDERS OF MUSCLE Assessment/Plan IV ABX PER ID DECIDING ON FEEDING TUBE GTUBE AND MONITOR INTAKE WOUND CARE NEUROLOGY EVAL SPEECH AND SWALLOW EVAL
--- NOTE | 2018-05-18 10:41 | PN ---
Progress Note (short form) - Note Progress Note: awake and alert trach to vent now with ngt-receiving tube feeds no bm today Vital Signs Period Temp Pulse Resp BP Sys/Morillo Pulse Ox Last 24 Hr 98.0 F-99.2 F 64-82 11-20 92-109/51-69 97-98 trach to vent cor-rrr lungs decreased bs at bases abd soft,nt ext no edema CBC, BMP 05/18/18 06:00 05/18/18 06:00 Microbiology 05/14/18 12:00 Stool Clostridioides difficile Antigen - Final 05/14/18 12:00 Stool Clostridioides difficile Toxin Assay - Final 05/08/18 17:00 Blood - Peripheral Venous Blood Culture - Final NO GROWTH AFTER 5 DAYS INCUBATION 05/08/18 17:00 Blood - Peripheral Venous Blood Culture - Final NO GROWTH AFTER 5 DAYS INCUBATION 05/06/18 11:20 Blood - Peripheral Venous Blood Culture - Final NO GROWTH AFTER 5 DAYS INCUBATION 05/06/18 11:38 Blood - Peripheral Venous Blood Culture - Final NO GROWTH AFTER 5 DAYS INCUBATION 05/06/18 18:30 Sputum - Endotrachea Suction/Ventilator Gram Stain - Final 05/06/18 18:30 Sputum - Endotrachea Suction/Ventilator Sputum Culture - Final Pseudomonas Aeruginosa Serratia Marcescens Mr S Aureus 05/08/18 19:00 Urine - Urine Raza Legionella Antigen - Final 05/08/18 19:00 Urine - Urine Raza Streptococcus pneumoniae Antigen (M - Final 05/03/18 17:40 Blood - Peripheral Venous Blood Culture - Final NO GROWTH AFTER 5 DAYS INCUBATION 05/03/18 17:40 Blood - Peripheral Venous Blood Culture - Final NO GROWTH AFTER 5 DAYS INCUBATION 05/06/18 14:30 Urine - Urine Raza Urine Culture - Final Contaminated: Please Repeat 05/03/18 17:40 Urine - Urine Clean Catch Urine Culture - Final Contaminated: Please Repeat Current Medications Acetaminophen (Tylenol Oral Solution -) 650 mg NGT Q6H PRN PRN Reason: FEVER Last Admin: 05/17/18 22:44 Dose: 650 mg Albuterol/Ipratropium (Duoneb -) 1 amp NEB RQID [facility] Last Admin: 05/18/18 08:07 Dose: 1 amp Ascorbic Acid (Vitamin C Oral Solution -) 500 mg NGT DAILY [facility] Last Admin: 05/18/18 10:44 Dose: 500 mg Bacitracin (Bacitracin -) 1 applic TP BID [facility] Last Admin: 05/18/18 10:46 Dose: 1 applic Carbamazepine (Tegretol -) 100 mg NGT TID [facility] Last Admin: 05/18/18 05:59 Dose: 100 mg Clonazepam (Klonopin -) 1 mg PO HS PRN PRN Reason: INSOMNIA Last Admin: 05/17/18 22:43 Dose: 1 mg Collagenase (Santyl -) 1 applic TP DAILY [facility]; Protocol Last Admin: 05/18/18 10:46 Dose: Not Given Cyanocobalamin (Vitamin B12 -) 1,000 mcg NGT DAILY [facility] Last Admin: 05/18/18 10:43 Dose: 1,000 mcg Ferrous Sulfate (Feosol) 300 mg NGT DAILY [facility] Last Admin: 05/18/18 10:43 Dose: 300 mg Folic Acid (Folic Acid -) 1 mg NGT DAILY [facility] Last Admin: 05/18/18 10:43 Dose: 1 mg Hydralazine HCl (Apresoline -) 50 mg NGT TID [facility] Last Admin: 05/18/18 05:59 Dose: Not Given Piperacillin Sod/Tazobactam (Sod 4.5 gm/ Dextrose) 100 mls @ 200 mls/hr IVPB Q8H-IV [facility]; Protocol Last Admin: 05/18/18 10:44 Dose: 200 mls/hr Vancomycin HCl 1,250 mg/ (Dextrose) 250 mls @ 250 mls/2 hr IVPB Q24H [facility]; Protocol Last Admin: 05/17/18 14:36 Dose: 250 mls/2 hr Lactobacillus Acidophilus (Bacid -) 1 tab NGT BID [facility] Last Admin: 05/18/18 10:43 Dose: 1 tab Levothyroxine Sodium (Synthroid -) 100 mcg NGT DAILY@0700 [facility] Last Admin: 05/18/18 05:59 Dose: 100 mcg Loratadine (Claritin -) 10 mg NGT DAILY [facility] Last Admin: 05/18/18 10:43 Dose: 10 mg Metoprolol Tartrate (Lopressor -) 50 mg NGT BID [facility] Last Admin: 05/18/18 10:43 Dose: 50 mg Mirtazapine (Remeron -) 7.5 mg NGT HS [facility] Last Admin: 05/17/18 22:44 Dose: 7.5 mg Nystatin/Triamcinolone Acetonide (Mycolog Ii Ointment -) 1 applic TP BID [facility] Last Admin: 05/18/18 10:45 Dose: 1 applic Pantoprazole Sodium (Protonix Iv) 40 mg IVPUSH BID [facility] Last Admin: 05/18/18 10:44 Dose: 40 mg Potassium Phos/Sodium Phos (Phos-Nak Packet -) 1 packet NGT DAILY [facility] Last Admin: 05/18/18 10:43 Dose: 1 packet Sertraline HCl (Zoloft -) 50 mg NGT DAILY [facility] Last Admin: 05/18/18 10:43 Dose: 50 mg Sodium Chloride (Sodium Chloride Tablet -) 1 gm NGT DAILY [facility] Last Admin: 05/18/18 10:44 Dose: 1 gm Vancomycin HCl (Vancomycin Oral Solution) 125 mg NGT Q6HPO [facility] Last Admin: 05/18/18 06:00 Dose: 125 mg Zinc Sulfate (Orazinc -) 220 mg NGT DAILY [facility] Last Admin: 05/18/18 10:45 Dose: 220 mg imp/reccd RLL pneumonia vancomycin and zosyn day #10 repeat cxray unchanged vanco trough today would favor treating 14 days ?cdiff- diarrhea resolved continue po vancomycin one week past discontinuation of the iv antibiotics respiratory failure chronic MS with functional quadraplegia Problem List - Problems (1) Leukocytosis Code(s): D72.829 - ELEVATED WHITE BLOOD CELL COUNT, UNSPECIFIED (2) Hyponatremia Code(s): E87.1 - HYPO-OSMOLALITY AND HYPONATREMIA (3) Chronic respiratory failure Code(s): J96.10 - CHRONIC RESPIRATORY FAILURE, UNSP W HYPOXIA OR HYPERCAPNIA (4) Functional 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
[2018-05-18] MEDS: FERROUS SO4 300 MG/5 ML ORAL SOLN UNIT DOSE CUPS NGT SCH (10:43)
[2018-05-18] MEDS: LORATADINE 10 MG TABLET NGT SCH (10:43)
[2018-05-18] MEDS: FOLIC ACID 1 MG TABLET (FP) NGT SCH (10:43)
[2018-05-18] MEDS: SERTRALINE HCL 50 MG TABLET (FP) NGT SCH (10:43)
[2018-05-18] MEDS: LACTOBACILLUS ACIDOPHILUS 1 TABLET NGT SCH ×2 (10:43→23:13)
[2018-05-18] MEDS: METOPROLOL TARTRATE 50 MG TABLET (FP) NGT SCH ×2 (10:43→23:06)
[2018-05-18] MEDS: NAPH,MB-DB/K PH,MBDB POWDER PACKET NGT SCH (10:43)
[2018-05-18] MEDS: CYANOCOBALAMIN 1,000 MCG TABLET (FP) NGT SCH (10:43)
[2018-05-18] MEDS: ASCORBIC ACID 500 MG/5 ML UNIT DOSE CUP NGT SCH (10:44)
[2018-05-18] MEDS: SODIUM CHLORIDE 1 GM TABLET NGT SCH (10:44)
[2018-05-18] MEDS: PANTOPRAZOLE SODIUM 40 MG VIAL IVPUSH SCH ×2 (10:44→23:12)
[2018-05-18] MEDS: ZINC SULFATE 220 MG CAPSULE (FP) NGT SCH (10:45)
[2018-05-18] MEDS: NYSTATIN/TRIAMCINOLONE TOPICAL OINTMENT 15 GM TUBE TP SCH ×2 (10:45→23:16)
[2018-05-18] MEDS: BACITRACIN 15 GM TUBE TOPICAL OINTMENT TP SCH ×2 (10:46→23:16)
[2018-05-18] MEDS: MULTIVIT-MINERALS ORAL LIQUID NGT SCH (10:46)
--- NOTE | 2018-05-18 10:46 | PN ---
Progress Note, LEATHER TOGGLER - Note Progress Note: If PEG placed, potential plan is to try PMV again for communication and possible weaning from vent, and maybe MBS/some PO trials. I contacted Sharon Billings, LEATHER TOGGLER at [facility], and await a call back. . My plan is to arrange for [employer] to hopefully obtain Computer for augmentative communication/using head control or eye gaze for communication and environmental control. Visual deficits may present with challenge with computer use but should be assessed by augmentation communication team.
--- NOTE | 2018-05-18 13:48 | PN ---
Progress Note, Physician History of Present Illness: pulmonary alert,on vent support ac mode - Current Medication List Current Medications: Active Medications Acetaminophen (Tylenol Oral Solution -) 650 mg NGT Q6H PRN PRN Reason: FEVER Last Admin: 05/17/18 22:44 Dose: 650 mg Albuterol/Ipratropium (Duoneb -) 1 amp NEB RQID [facility] Last Admin: 05/18/18 12:13 Dose: 1 amp Ascorbic Acid (Vitamin C Oral Solution -) 500 mg NGT DAILY [facility] Last Admin: 05/18/18 10:44 Dose: 500 mg Bacitracin (Bacitracin -) 1 applic TP BID [facility] Last Admin: 05/18/18 10:46 Dose: 1 applic Carbamazepine (Tegretol -) 100 mg NGT TID [facility] Last Admin: 05/18/18 05:59 Dose: 100 mg Clonazepam (Klonopin -) 1 mg PO HS PRN PRN Reason: INSOMNIA Last Admin: 05/17/18 22:43 Dose: 1 mg Collagenase (Santyl -) 1 applic TP DAILY [facility]; Protocol Last Admin: 05/18/18 10:46 Dose: Not Given Cyanocobalamin (Vitamin B12 -) 1,000 mcg NGT DAILY [facility] Last Admin: 05/18/18 10:43 Dose: 1,000 mcg Ferrous Sulfate (Feosol) 300 mg NGT DAILY [facility] Last Admin: 05/18/18 10:43 Dose: 300 mg Folic Acid (Folic Acid -) 1 mg NGT DAILY [facility] Last Admin: 05/18/18 10:43 Dose: 1 mg Hydralazine HCl (Apresoline -) 50 mg NGT TID [facility] Last Admin: 05/18/18 05:59 Dose: Not Given Piperacillin Sod/Tazobactam (Sod 4.5 gm/ Dextrose) 100 mls @ 200 mls/hr IVPB Q8H-IV [facility]; Protocol Last Admin: 05/18/18 10:44 Dose: 200 mls/hr Vancomycin HCl 1,250 mg/ (Dextrose) 250 mls @ 250 mls/2 hr IVPB Q24H [facility]; Protocol Last Admin: 05/17/18 14:36 Dose: 250 mls/2 hr Lactobacillus Acidophilus (Bacid -) 1 tab NGT BID [facility] Last Admin: 05/18/18 10:43 Dose: 1 tab Levothyroxine Sodium (Synthroid -) 100 mcg NGT DAILY@0700 [facility] Last Admin: 05/18/18 05:59 Dose: 100 mcg Loratadine (Claritin -) 10 mg NGT DAILY [facility] Last Admin: 05/18/18 10:43 Dose: 10 mg Metoprolol Tartrate (Lopressor -) 50 mg NGT BID [facility] Last Admin: 05/18/18 10:43 Dose: 50 mg Mirtazapine (Remeron -) 7.5 mg NGT HS [facility] Last Admin: 05/17/18 22:44 Dose: 7.5 mg Nystatin/Triamcinolone Acetonide (Mycolog Ii Ointment -) 1 applic TP BID [facility] Last Admin: 05/18/18 10:45 Dose: 1 applic Pantoprazole Sodium (Protonix Iv) 40 mg IVPUSH BID [facility] Last Admin: 05/18/18 10:44 Dose: 40 mg Potassium Phos/Sodium Phos (Phos-Nak Packet -) 1 packet NGT DAILY [facility] Last Admin: 05/18/18 10:43 Dose: 1 packet Sertraline HCl (Zoloft -) 50 mg NGT DAILY [facility] Last Admin: 05/18/18 10:43 Dose: 50 mg Sodium Chloride (Sodium Chloride Tablet -) 1 gm NGT DAILY [facility] Last Admin: 05/18/18 10:44 Dose: 1 gm Vancomycin HCl (Vancomycin Oral Solution) 125 mg NGT Q6HPO [facility] Last Admin: 05/18/18 12:12 Dose: 125 mg Zinc Sulfate (Orazinc -) 220 mg NGT DAILY [facility] Last Admin: 05/18/18 10:45 Dose: 220 mg - Objective Vital Signs: Vital Signs Temperature 98.3 F 05/18/18 06:00 Pulse Rate 67 05/18/18 08:06 Respiratory Rate 16 05/18/18 12:11 Blood Pressure 95/53 L 05/18/18 06:00 O2 Sat by Pulse Oximetry (%) 97 05/18/18 08:06 Constitutional: Yes: Well Nourished, Calm Eyes: Yes: WNL HENT: Yes: WNL Neck: Yes: Supple (trach) Cardiovascular: Yes: Regular Rate and Rhythm, S1, S2 Respiratory: Yes: Rhonchi (few scattered rhonchi) Gastrointestinal: Yes: Normal Bowel Sounds, Soft Extremities: Yes: WNL Edema: No Labs: CBC, BMP 05/18/18 06:00 05/18/18 06:00 Problem List - Problems (1) Anemia Code(s): D64.9 - ANEMIA, UNSPECIFIED (2) Electrolyte imbalance Code(s): E87.8 - OTH DISORDERS OF ELECTROLYTE AND FLUID BALANCE, NEC (3) Functional 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 (4) Toxic metabolic encephalopathy Code(s): G92 - TOXIC ENCEPHALOPATHY (5) Acute on chronic respiratory failure with hypoxia and hypercapnia Code(s): J96.21 - ACUTE AND CHRONIC RESPIRATORY FAILURE WITH HYPOXIA; J96.22 - ACUTE AND CHRONIC RESPIRATORY FAILURE WITH HYPERCAPNIA (6) Failure to thrive Code(s): [id number] - (7) Functional quadriplegia Code(s): R53.2 - FUNCTIONAL QUADRIPLEGIA (8) Hx of multiple sclerosis Code(s): Z86.69 - PERSONAL HISTORY OF DIS OF THE NERVOUS SYS AND SENSE ORGANS (9) Hypokalemia Code(s): E87.6 - HYPOKALEMIA (10) Multiple sclerosis Code(s): G35 - MULTIPLE SCLEROSIS (11) Pneumonia Code(s): J18.9 - PNEUMONIA, UNSPECIFIED ORGANISM Qualifiers: Pneumonia type: pneumonia due to methicillin-resistant Staphylococcus aureus (MRSA) (12) Sacral decubitus ulcer, stage IV Code(s): L89.154 - PRESSURE ULCER OF SACRAL REGION, STAGE 4 (13) Status post tracheostomy Code(s): Z93.0 - TRACHEOSTOMY STATUS Assessment/Plan ASSESSMENT/PLAN: Suspected aspiration pneumonitis AMS due to Severe Hyponatremia corrected Toxic Metabolic Encephalopathy Functional Quadriplegia Multiple Sclerosis Trigeminal Neuralgia Acute on chronic respiratory failure HTN Hypothyroidism Depression Anxiety C-dif nutritional support Wean trials as tolerated BD TX ABX per ID DR ELDER
--- NOTE | 2018-05-18 13:56 | PN ---
Progress Note (short form) - Note Progress Note: NEUROLOGY PROGRESS NOTE: Events reviewed and discussed with staff. Mother and Dr. Perez at bedside. Remains on Vanco and Zosyn at this time for presumed C. difficile colitis after new onset of diarrhea. But also tolerating NGT well. Per pulmonary, may attempt to taper off vent. S/p wound debridement of sacral decubiti. Still C/O worsening "nerve pains" on L face attributed to Trigeminal Neuralgia. WBC 6.8 NA 137-142 H/H 8.1/24-> 8.8/25.6 Tegretol level 3.3 mg% GODFREY: -Lhermitte's. On mechanical vent. Perera appears clear. NGT. NEURO EXAM: Tongue appears hydrated. Ox [facility]. May,. TRUMP. Improved movement of tongue. Tetraplegic. Areflexic. Reduced pinch in all fours. Impression: Advanced MS Toxic-Metabolic Encephalopathy (Hyponatremia, Infection) Trigeminal Neuralgia Suggest: Continue Abx Maintain perera care and patency. Wound care. Agree with po trials, wean off vent if possible Consider increase tegretol from 100 TID to 200 BID (Tegretol ER) when taking PO. Thank you very much, Rom Conroy MD
--- NOTE | 2018-05-18 14:21 | PN ---
Progress Note, CREATIVE/ART DIRECTOR - Note Progress Note: I spoke with Sharon Billings at [facility], Augmentative Communication department.[phone] miss Israel aleman seems like an excellent candidate for a computer to supplement her verbal communication. I anticipate that they will be able to get a augmentative communication device that she will be able to control either with a head control or possibly eye gaze to communicate her wants and wishes, and control the environment, allowing her to call her family, 911, turn on lights, send emails, watch TV etc.Although she does have visual impairments they can add an auditory scan to assist at selecting letters and words to communicate. She will need to scripts that should be faxed to [facility] [phone]. The first script should say assistive technology evaluation and follow up The Second script should read Augmentative Communication evaluation and follow up.both will need diagnoses eg multiple sclerosis, ventilator dependent, impaired communication. patient has Medicare Medicaid and the appointment should be covered when she is at home.
[2018-05-18] MEDS: VANCOMYCIN HCL 1,250 MG in DEXTROSE 5%-WATER - 250 ML IVPB SCH (15:06)
[2018-05-18] MEDS: ACETAMINOPHEN 650 MG/20.3 ML ORAL SOLUTION (CUPS) NGT PRN (17:26)
[2018-05-18] MEDS: clonazePAM 0.5 MG TABLET PO PRN (23:13)
[2018-05-18] MEDS: MIRTAZAPINE 15 MG TABLET (FP) NGT SCH (23:17)
[2018-05-19] MEDS ORDERED: DEXTROSE 5%-WATER 100 ML IVPB ONE ×3 (02:14→20:18)
[2018-05-19] MEDS ORDERED: PIPERACILLIN/TAZOBACTAM 4.5 GM VIAL IVPB ONE ×3 (02:14→20:18)
[2018-05-19] MEDS: PIPERACILLIN/TAZOB 4.5 GM 4.5 GM in DEXTROSE 5%-WATER 100 ML IVPB SCH ×3 (02:33→20:19)
[2018-05-19] MEDS: VANCOMYCIN 250 MG/5 ML ORAL SOLUTION NGT SCH ×4 (06:11→23:38)
[2018-05-19] MEDS: hydrALAZINE HCL 50 MG TABLET (FP) NGT SCH ×3 (06:16→21:43)
[2018-05-19] MEDS: LEVOTHYROXINE NA 100 MCG TABLET (FP) NGT SCH (06:16)
[2018-05-19] MEDS: carBAMazepine 100 MG TAB.CHEW NGT SCH ×3 (06:16→21:42)
[2018-05-19] MEDS ORDERED: PT OWN MED DRAWER 7, Y5N ONE ×4 (07:43→16:20)
[2018-05-19] MEDS: ALBUTEROL SO4 2.5/IPRATROPIUM 0.5 INH SOL 3 ML VIAL.NEB. NEB SCH ×4 (08:00→21:40)
[2018-05-19] MEDS: FERROUS SO4 300 MG/5 ML ORAL SOLN UNIT DOSE CUPS NGT SCH (09:00)
[2018-05-19] MEDS: ASCORBIC ACID 500 MG/5 ML UNIT DOSE CUP NGT SCH (09:01)
[2018-05-19] MEDS: MULTIVIT-MINERALS ORAL LIQUID NGT SCH (09:01)
[2018-05-19] MEDS: FOLIC ACID 1 MG TABLET (FP) NGT SCH (09:02)
[2018-05-19] MEDS: LACTOBACILLUS ACIDOPHILUS 1 TABLET NGT SCH ×2 (09:02→21:43)
[2018-05-19] MEDS: SERTRALINE HCL 50 MG TABLET (FP) NGT SCH (09:02)
[2018-05-19] MEDS: LORATADINE 10 MG TABLET NGT SCH (09:02)
[2018-05-19] MEDS: SODIUM CHLORIDE 1 GM TABLET NGT SCH (09:03)
[2018-05-19] MEDS: METOPROLOL TARTRATE 50 MG TABLET (FP) NGT SCH ×2 (09:03→21:44)
[2018-05-19] MEDS: NAPH,MB-DB/K PH,MBDB POWDER PACKET NGT SCH (09:03)
[2018-05-19] MEDS: CYANOCOBALAMIN 1,000 MCG TABLET (FP) NGT SCH (09:03)
[2018-05-19] MEDS: ZINC SULFATE 220 MG CAPSULE (FP) NGT SCH (09:03)
--- NOTE | 2018-05-19 10:01 | PN ---
Progress Note, Physician - Current Medication List Current Medications: Active Medications Acetaminophen (Tylenol Oral Solution -) 650 mg NGT Q6H PRN PRN Reason: FEVER Last Admin: 05/18/18 17:26 Dose: 650 mg Albuterol/Ipratropium (Duoneb -) 1 amp NEB RQID [facility] Last Admin: 05/19/18 08:00 Dose: 1 amp Ascorbic Acid (Vitamin C Oral Solution -) 500 mg NGT DAILY [facility] Last Admin: 05/19/18 09:01 Dose: 500 mg Bacitracin (Bacitracin -) 1 applic TP BID [facility] Last Admin: 05/18/18 23:16 Dose: 1 applic Carbamazepine (Tegretol -) 100 mg NGT TID [facility] Last Admin: 05/19/18 06:16 Dose: 100 mg Clonazepam (Klonopin -) 1 mg PO HS PRN PRN Reason: INSOMNIA Last Admin: 05/18/18 23:13 Dose: 1 mg Collagenase (Santyl -) 1 applic TP DAILY [facility]; Protocol Last Admin: 05/18/18 10:46 Dose: Not Given Cyanocobalamin (Vitamin B12 -) 1,000 mcg NGT DAILY [facility] Last Admin: 05/19/18 09:03 Dose: 1,000 mcg Diphenoxylate HCl/Atropine (Lomotil -) 1 combo PO Q8H PRN PRN Reason: DIARRHEA Ferrous Sulfate (Feosol) 300 mg NGT DAILY [facility] Last Admin: 05/19/18 09:00 Dose: 300 mg Folic Acid (Folic Acid -) 1 mg NGT DAILY [facility] Last Admin: 05/19/18 09:02 Dose: 1 mg Hydralazine HCl (Apresoline -) 50 mg NGT TID [facility] Last Admin: 05/19/18 06:16 Dose: 50 mg Piperacillin Sod/Tazobactam (Sod 4.5 gm/ Dextrose) 100 mls @ 200 mls/hr IVPB Q8H-IV [facility]; Protocol Last Admin: 05/19/18 09:03 Dose: 200 mls/hr Vancomycin HCl 1,250 mg/ (Dextrose) 250 mls @ 250 mls/2 hr IVPB Q24H [facility]; Protocol Last Admin: 05/18/18 15:06 Dose: 250 mls/2 hr Lactobacillus Acidophilus (Bacid -) 1 tab NGT BID [facility] Last Admin: 05/19/18 09:02 Dose: 1 tab Levothyroxine Sodium (Synthroid -) 100 mcg NGT DAILY@0700 [facility] Last Admin: 05/19/18 06:16 Dose: 100 mcg Loratadine (Claritin -) 10 mg NGT DAILY [facility] Last Admin: 05/19/18 09:02 Dose: 10 mg Metoprolol Tartrate (Lopressor -) 50 mg NGT BID [facility] Last Admin: 05/19/18 09:03 Dose: Not Given Mirtazapine (Remeron -) 7.5 mg NGT HS [facility] Last Admin: 05/18/18 23:17 Dose: 7.5 mg Nystatin/Triamcinolone Acetonide (Mycolog Ii Ointment -) 1 applic TP BID [facility] Last Admin: 05/18/18 23:16 Dose: 1 applic Pantoprazole Sodium (Protonix Iv) 40 mg IVPUSH BID [facility] Last Admin: 05/18/18 23:12 Dose: 40 mg Potassium Phos/Sodium Phos (Phos-Nak Packet -) 1 packet NGT DAILY [facility] Last Admin: 05/19/18 09:03 Dose: 1 packet Sertraline HCl (Zoloft -) 50 mg NGT DAILY [facility] Last Admin: 05/19/18 09:02 Dose: 50 mg Sodium Chloride (Sodium Chloride Tablet -) 1 gm NGT DAILY [facility] Last Admin: 05/19/18 09:03 Dose: 1 gm Vancomycin HCl (Vancomycin Oral Solution) 125 mg NGT Q6HPO [facility] Last Admin: 05/19/18 06:11 Dose: 125 mg Zinc Sulfate (Orazinc -) 220 mg NGT DAILY [facility] Last Admin: 05/19/18 09:03 Dose: 220 mg - Objective Vital Signs: Vital Signs Temperature 98.2 F 05/19/18 06:00 Pulse Rate 93 H 05/19/18 08:34 Respiratory Rate 15 05/19/18 08:34 Blood Pressure 130/66 05/19/18 06:00 O2 Sat by Pulse Oximetry (%) 100 05/19/18 08:34 Labs: CBC, BMP 05/18/18 06:00 05/18/18 06:00 Problem List - Problems (1) Abnormal LFTs Code(s): R94.5 - ABNORMAL RESULTS OF LIVER FUNCTION STUDIES (2) Anemia Code(s): D64.9 - ANEMIA, UNSPECIFIED (3) Functional 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 (4) Hyponatremia Code(s): E87.1 - HYPO-OSMOLALITY AND HYPONATREMIA (5) Chronic hypercapnic respiratory failure Code(s): J96.12 - CHRONIC RESPIRATORY FAILURE WITH HYPERCAPNIA (6) Decubital ulcer Code(s): L89.90 - PRESSURE ULCER OF UNSPECIFIED SITE, UNSPECIFIED STAGE Qualifiers: Pressure injury location: unspecified location Pressure injury stage: unspecified pressure injury stage Qualified Code(s): L89.90 - Pressure ulcer of unspecified site, unspecified stage (7) Multiple sclerosis Code(s): G35 - MULTIPLE SCLEROSIS (8) Muscle spasticity Code(s): M62.838 - OTHER MUSCLE SPASM (9) Muscle stiffness Code(s): M62.89 - OTHER SPECIFIED DISORDERS OF MUSCLE
--- NOTE | 2018-05-19 10:01 | PN ---
Progress Note, Physician - Current Medication List Current Medications: Active Medications Acetaminophen (Tylenol Oral Solution -) 650 mg NGT Q6H PRN PRN Reason: FEVER Last Admin: 05/18/18 17:26 Dose: 650 mg Albuterol/Ipratropium (Duoneb -) 1 amp NEB RQID [facility] Last Admin: 05/19/18 08:00 Dose: 1 amp Ascorbic Acid (Vitamin C Oral Solution -) 500 mg NGT DAILY [facility] Last Admin: 05/19/18 09:01 Dose: 500 mg Bacitracin (Bacitracin -) 1 applic TP BID [facility] Last Admin: 05/18/18 23:16 Dose: 1 applic Carbamazepine (Tegretol -) 100 mg NGT TID [facility] Last Admin: 05/19/18 06:16 Dose: 100 mg Clonazepam (Klonopin -) 1 mg PO HS PRN PRN Reason: INSOMNIA Last Admin: 05/18/18 23:13 Dose: 1 mg Collagenase (Santyl -) 1 applic TP DAILY [facility]; Protocol Last Admin: 05/18/18 10:46 Dose: Not Given Cyanocobalamin (Vitamin B12 -) 1,000 mcg NGT DAILY [facility] Last Admin: 05/19/18 09:03 Dose: 1,000 mcg Diphenoxylate HCl/Atropine (Lomotil -) 1 combo PO Q8H PRN PRN Reason: DIARRHEA Ferrous Sulfate (Feosol) 300 mg NGT DAILY [facility] Last Admin: 05/19/18 09:00 Dose: 300 mg Folic Acid (Folic Acid -) 1 mg NGT DAILY [facility] Last Admin: 05/19/18 09:02 Dose: 1 mg Hydralazine HCl (Apresoline -) 50 mg NGT TID [facility] Last Admin: 05/19/18 06:16 Dose: 50 mg Piperacillin Sod/Tazobactam (Sod 4.5 gm/ Dextrose) 100 mls @ 200 mls/hr IVPB Q8H-IV [facility]; Protocol Last Admin: 05/19/18 09:03 Dose: 200 mls/hr Vancomycin HCl 1,250 mg/ (Dextrose) 250 mls @ 250 mls/2 hr IVPB Q24H [facility]; Protocol Last Admin: 05/18/18 15:06 Dose: 250 mls/2 hr Lactobacillus Acidophilus (Bacid -) 1 tab NGT BID [facility] Last Admin: 05/19/18 09:02 Dose: 1 tab Levothyroxine Sodium (Synthroid -) 100 mcg NGT DAILY@0700 [facility] Last Admin: 05/19/18 06:16 Dose: 100 mcg Loratadine (Claritin -) 10 mg NGT DAILY [facility] Last Admin: 05/19/18 09:02 Dose: 10 mg Metoprolol Tartrate (Lopressor -) 50 mg NGT BID [facility] Last Admin: 05/19/18 09:03 Dose: Not Given Mirtazapine (Remeron -) 7.5 mg NGT HS [facility] Last Admin: 05/18/18 23:17 Dose: 7.5 mg Nystatin/Triamcinolone Acetonide (Mycolog Ii Ointment -) 1 applic TP BID [facility] Last Admin: 05/18/18 23:16 Dose: 1 applic Pantoprazole Sodium (Protonix Iv) 40 mg IVPUSH BID [facility] Last Admin: 05/18/18 23:12 Dose: 40 mg Potassium Phos/Sodium Phos (Phos-Nak Packet -) 1 packet NGT DAILY [facility] Last Admin: 05/19/18 09:03 Dose: 1 packet Sertraline HCl (Zoloft -) 50 mg NGT DAILY [facility] Last Admin: 05/19/18 09:02 Dose: 50 mg Sodium Chloride (Sodium Chloride Tablet -) 1 gm NGT DAILY [facility] Last Admin: 05/19/18 09:03 Dose: 1 gm Vancomycin HCl (Vancomycin Oral Solution) 125 mg NGT Q6HPO [facility] Last Admin: 05/19/18 06:11 Dose: 125 mg Zinc Sulfate (Orazinc -) 220 mg NGT DAILY [facility] Last Admin: 05/19/18 09:03 Dose: 220 mg - Objective Vital Signs: Vital Signs Temperature 98.2 F 05/19/18 06:00 Pulse Rate 93 H 05/19/18 08:34 Respiratory Rate 15 05/19/18 08:34 Blood Pressure 130/66 05/19/18 06:00 O2 Sat by Pulse Oximetry (%) 100 05/19/18 08:34 Labs: CBC, BMP 05/18/18 06:00 05/18/18 06:00 Problem List - Problems (1) Abnormal LFTs Code(s): R94.5 - ABNORMAL RESULTS OF LIVER FUNCTION STUDIES (2) Anemia Code(s): D64.9 - ANEMIA, UNSPECIFIED (3) Functional 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 (4) Hyponatremia Code(s): E87.1 - HYPO-OSMOLALITY AND HYPONATREMIA (5) Chronic hypercapnic respiratory failure Code(s): J96.12 - CHRONIC RESPIRATORY FAILURE WITH HYPERCAPNIA (6) Decubital ulcer Code(s): L89.90 - PRESSURE ULCER OF UNSPECIFIED SITE, UNSPECIFIED STAGE Qualifiers: Pressure injury location: unspecified location Pressure injury stage: unspecified pressure injury stage Qualified Code(s): L89.90 - Pressure ulcer of unspecified site, unspecified stage (7) Multiple sclerosis Code(s): G35 - MULTIPLE SCLEROSIS (8) Muscle spasticity Code(s): M62.838 - OTHER MUSCLE SPASM (9) Muscle stiffness Code(s): M62.89 - OTHER SPECIFIED DISORDERS OF MUSCLE
[2018-05-19] MEDS: PANTOPRAZOLE SODIUM 40 MG VIAL IVPUSH SCH ×2 (10:22→21:42)
[2018-05-19] MEDS: NYSTATIN/TRIAMCINOLONE TOPICAL OINTMENT 15 GM TUBE TP SCH ×2 (10:26→21:44)
[2018-05-19] MEDS: COLLAGENASE CLOSTRIDIUM HIST. 30 GRAMS TUBE TP SCH (10:26)
[2018-05-19] MEDS: BACITRACIN 15 GM TUBE TOPICAL OINTMENT TP SCH ×2 (10:27→21:43)
--- NOTE | 2018-05-19 10:36 | PN ---
Progress Note (short form) - Note Progress Note: PULMONARY Vented on SIMV. Awake, alert. Denies shortness of breath. Placed on CPAP/PS 6/5 with good RSBI. Vital Signs Period Temp Pulse Resp BP Sys/Morillo Pulse Ox Last 24 Hr 97.9 F-98.6 F 67-93 10-20 97-130/51-66 99-100 Gen: vented, awake Heart: RRR Lung: decreased breath sounds at the bases Abd: soft, nontender Ext: no edema CBC, BMP 05/18/18 06:00 05/18/18 06:00 Active Medications Acetaminophen (Tylenol Oral Solution -) 650 mg NGT Q6H PRN PRN Reason: FEVER Last Admin: 05/18/18 17:26 Dose: 650 mg Albuterol/Ipratropium (Duoneb -) 1 amp NEB RQID [facility] Last Admin: 05/19/18 08:00 Dose: 1 amp Ascorbic Acid (Vitamin C Oral Solution -) 500 mg NGT DAILY [facility] Last Admin: 05/19/18 09:01 Dose: 500 mg Bacitracin (Bacitracin -) 1 applic TP BID [facility] Last Admin: 05/19/18 10:27 Dose: 1 applic Carbamazepine (Tegretol -) 100 mg NGT TID [facility] Last Admin: 05/19/18 06:16 Dose: 100 mg Clonazepam (Klonopin -) 1 mg PO HS PRN PRN Reason: INSOMNIA Last Admin: 05/18/18 23:13 Dose: 1 mg Collagenase (Santyl -) 1 applic TP DAILY [facility]; Protocol Last Admin: 05/19/18 10:26 Dose: 1 applic Cyanocobalamin (Vitamin B12 -) 1,000 mcg NGT DAILY [facility] Last Admin: 05/19/18 09:03 Dose: 1,000 mcg Diphenoxylate HCl/Atropine (Lomotil -) 1 combo PO Q8H PRN PRN Reason: DIARRHEA Ferrous Sulfate (Feosol) 300 mg NGT DAILY [facility] Last Admin: 05/19/18 09:00 Dose: 300 mg Folic Acid (Folic Acid -) 1 mg NGT DAILY [facility] Last Admin: 05/19/18 09:02 Dose: 1 mg Hydralazine HCl (Apresoline -) 50 mg NGT TID [facility] Last Admin: 05/19/18 06:16 Dose: 50 mg Piperacillin Sod/Tazobactam (Sod 4.5 gm/ Dextrose) 100 mls @ 200 mls/hr IVPB Q8H-IV [facility]; Protocol Last Admin: 05/19/18 09:03 Dose: 200 mls/hr Vancomycin HCl 1,250 mg/ (Dextrose) 250 mls @ 250 mls/2 hr IVPB Q24H [facility]; Protocol Last Admin: 05/18/18 15:06 Dose: 250 mls/2 hr Lactobacillus Acidophilus (Bacid -) 1 tab NGT BID [facility] Last Admin: 05/19/18 09:02 Dose: 1 tab Levothyroxine Sodium (Synthroid -) 100 mcg NGT DAILY@0700 [facility] Last Admin: 05/19/18 06:16 Dose: 100 mcg Loratadine (Claritin -) 10 mg NGT DAILY [facility] Last Admin: 05/19/18 09:02 Dose: 10 mg Metoprolol Tartrate (Lopressor -) 50 mg NGT BID [facility] Last Admin: 05/19/18 09:03 Dose: Not Given Mirtazapine (Remeron -) 7.5 mg NGT HS [facility] Last Admin: 05/18/18 23:17 Dose: 7.5 mg Nystatin/Triamcinolone Acetonide (Mycolog Ii Ointment -) 1 applic TP BID [facility] Last Admin: 05/19/18 10:26 Dose: 1 applic Pantoprazole Sodium (Protonix Iv) 40 mg IVPUSH BID [facility] Last Admin: 05/19/18 10:22 Dose: 40 mg Potassium Phos/Sodium Phos (Phos-Nak Packet -) 1 packet NGT DAILY [facility] Last Admin: 05/19/18 09:03 Dose: 1 packet Sertraline HCl (Zoloft -) 50 mg NGT DAILY [facility] Last Admin: 05/19/18 09:02 Dose: 50 mg Sodium Chloride (Sodium Chloride Tablet -) 1 gm NGT DAILY [facility] Last Admin: 05/19/18 09:03 Dose: 1 gm Vancomycin HCl (Vancomycin Oral Solution) 125 mg NGT Q6HPO [facility] Last Admin: 05/19/18 06:11 Dose: 125 mg Zinc Sulfate (Orazinc -) 220 mg NGT DAILY [facility] Last Admin: 05/19/18 09:03 Dose: 220 mg A/P Chronic Respiratory Failure Pneumonia likely Aspiration treated +C Diff Ag Multiple Sclerosis Functional Quadriplegia Hyponatremia resolved HTN Hypothyroidism Depression - antibiotics per ID - inhaled bronchodilators - can attempt trach collar during day - aspiration precautions - enteral feeds - DVT/GI prophylaxis
[2018-05-19] MEDS: DIPHENOXYLATE 2.5/ATROPINE.025 1 COMBO TABLET PO PRN (10:43)
--- NOTE | 2018-05-19 11:24 | PN ---
Progress Note, VENEER SPLICER - Note Progress Note: Pending PEG decision. Reviewed with staff/family regarding Augmentative Assessment as out pt. Info provided. Scripts needed.
--- NOTE | 2018-05-19 15:38 | PN ---
Progress Note, Physician Chief Complaint: patient seen on trach collar tube feeds on hold spoke to serge about peg she wants to speak to louie who is hcp - Current Medication List Current Medications: Active Medications Acetaminophen (Tylenol Oral Solution -) 650 mg NGT Q6H PRN PRN Reason: FEVER Last Admin: 05/18/18 17:26 Dose: 650 mg Albuterol/Ipratropium (Duoneb -) 1 amp NEB RQID [facility] Last Admin: 05/19/18 12:00 Dose: 1 amp Ascorbic Acid (Vitamin C Oral Solution -) 500 mg NGT DAILY [facility] Last Admin: 05/19/18 09:01 Dose: 500 mg Bacitracin (Bacitracin -) 1 applic TP BID [facility] Last Admin: 05/19/18 10:27 Dose: 1 applic Carbamazepine (Tegretol -) 100 mg NGT TID [facility] Last Admin: 05/19/18 13:02 Dose: 100 mg Clonazepam (Klonopin -) 1 mg PO HS PRN PRN Reason: INSOMNIA Last Admin: 05/18/18 23:13 Dose: 1 mg Collagenase (Santyl -) 1 applic TP DAILY [facility]; Protocol Last Admin: 05/19/18 10:26 Dose: 1 applic Cyanocobalamin (Vitamin B12 -) 1,000 mcg NGT DAILY [facility] Last Admin: 05/19/18 09:03 Dose: 1,000 mcg Diphenoxylate HCl/Atropine (Lomotil -) 1 combo PO Q8H PRN PRN Reason: DIARRHEA Last Admin: 05/19/18 10:43 Dose: 1 combo Ferrous Sulfate (Feosol) 300 mg NGT DAILY [facility] Last Admin: 05/19/18 09:00 Dose: 300 mg Folic Acid (Folic Acid -) 1 mg NGT DAILY [facility] Last Admin: 05/19/18 09:02 Dose: 1 mg Hydralazine HCl (Apresoline -) 50 mg NGT TID [facility] Last Admin: 05/19/18 06:16 Dose: 50 mg Piperacillin Sod/Tazobactam (Sod 4.5 gm/ Dextrose) 100 mls @ 200 mls/hr IVPB Q8H-IV [facility]; Protocol Last Admin: 05/19/18 09:03 Dose: 200 mls/hr Vancomycin HCl 1,250 mg/ (Dextrose) 250 mls @ 250 mls/2 hr IVPB Q24H [facility]; Protocol Last Admin: 05/18/18 15:06 Dose: 250 mls/2 hr Lactobacillus Acidophilus (Bacid -) 1 tab NGT BID [facility] Last Admin: 05/19/18 09:02 Dose: 1 tab Levothyroxine Sodium (Synthroid -) 100 mcg NGT DAILY@0700 [facility] Last Admin: 05/19/18 06:16 Dose: 100 mcg Loratadine (Claritin -) 10 mg NGT DAILY [facility] Last Admin: 05/19/18 09:02 Dose: 10 mg Metoprolol Tartrate (Lopressor -) 50 mg NGT BID [facility] Last Admin: 05/19/18 09:03 Dose: Not Given Mirtazapine (Remeron -) 7.5 mg NGT HS [facility] Last Admin: 05/18/18 23:17 Dose: 7.5 mg Nystatin/Triamcinolone Acetonide (Mycolog Ii Ointment -) 1 applic TP BID [facility] Last Admin: 05/19/18 10:26 Dose: 1 applic Pantoprazole Sodium (Protonix Iv) 40 mg IVPUSH BID [facility] Last Admin: 05/19/18 10:22 Dose: 40 mg Potassium Phos/Sodium Phos (Phos-Nak Packet -) 1 packet NGT DAILY [facility] Last Admin: 05/19/18 09:03 Dose: 1 packet Sertraline HCl (Zoloft -) 50 mg NGT DAILY [facility] Last Admin: 05/19/18 09:02 Dose: 50 mg Sodium Chloride (Sodium Chloride Tablet -) 1 gm NGT DAILY [facility] Last Admin: 05/19/18 09:03 Dose: 1 gm Vancomycin HCl (Vancomycin Oral Solution) 125 mg NGT Q6HPO [facility] Last Admin: 05/19/18 12:56 Dose: 125 mg Zinc Sulfate (Orazinc -) 220 mg NGT DAILY [facility] Last Admin: 05/19/18 09:03 Dose: 220 mg - Objective Vital Signs: Vital Signs Temperature 97.9 F 05/19/18 10:00 Pulse Rate 72 05/19/18 10:00 Respiratory Rate 15 05/19/18 10:00 Blood Pressure 97/62 05/19/18 10:00 O2 Sat by Pulse Oximetry (%) 100 05/19/18 08:34 Constitutional: Yes: Calm Cardiovascular: Yes: Regular Rate and Rhythm, S1, S2 Respiratory: Yes: Diminished Gastrointestinal: Yes: Normal Bowel Sounds, Soft Genitourinary: Yes: Perera Present Neurological: Yes: Alert, Pre-Existing Deficit Labs: CBC, BMP 05/18/18 06:00 05/18/18 06:00 Problem List - Problems (1) Hyponatremia Assessment/Plan: resolved Code(s): E87.1 - HYPO-OSMOLALITY AND HYPONATREMIA (2) Anemia Assessment/Plan: s/p prbc will continue to monitor h/h Code(s): D64.9 - ANEMIA, UNSPECIFIED (3) Hypothyroid Assessment/Plan: will switch back to synthroid 100mcg via ng tube daily Code(s): E03.9 - HYPOTHYROIDISM, UNSPECIFIED (4) Hyperkalemia Assessment/Plan: potassium imbalance resolved Code(s): E87.5 - HYPERKALEMIA (5) Hx of multiple sclerosis Assessment/Plan: vent support appreciate neurology note dvt ppx NG tube placed by IR for aspiration Code(s): Z86.69 - PERSONAL HISTORY OF DIS OF THE NERVOUS SYS AND SENSE ORGANS (6) Electrolyte imbalance Assessment/Plan: repeat labs ordered- na,k ,mag normal Code(s): E87.8 - OTH DISORDERS OF ELECTROLYTE AND FLUID BALANCE, NEC (7) Functional quadriplegia secondary to MS Assessment/Plan: perera frequent turn positon dr jeffries- wound consult noted dvt ppx pallitive care team Code(s): G35 - MULTIPLE SCLEROSIS; R53.2 - FUNCTIONAL QUADRIPLEGIA (8) Insomnia Assessment/Plan: in the hospital will give clonazzepam at night that what she takes at home and put her on the vent at night and in the morning till she is fully awake Code(s): G47.00 - INSOMNIA, UNSPECIFIED (9) Pneumonia Assessment/Plan: RLL on zosyn and vacomcyin day 12/19 Code(s): J18.9 - PNEUMONIA, UNSPECIFIED ORGANISM Qualifiers: Pneumonia type: pneumonia due to methicillin-resistant Staphylococcus aureus (MRSA) (10) C. difficile diarrhea Assessment/Plan: po vancomycin Microbiology 05/14/18 12:00 Stool Clostridioides difficile Antigen - Final 05/14/18 12:00 Stool Clostridioides difficile Toxin Assay - Final Code(s): A04.72 - ENTEROCOLITIS D/T CLOSTRIDIUM DIFFICILE, NOT SPCF RECUR Assessment/Plan now to back on simv mode and restart tube feeds
[2018-05-19] MEDS: VANCOMYCIN HCL 1,250 MG in DEXTROSE 5%-WATER - 250 ML IVPB SCH (16:31)
[2018-05-19] MEDS: ACETAMINOPHEN 650 MG/20.3 ML ORAL SOLUTION (CUPS) NGT PRN (21:41)
[2018-05-19] MEDS: MIRTAZAPINE 15 MG TABLET (FP) NGT SCH (21:43)
[2018-05-20] MEDS ORDERED: PIPERACILLIN/TAZOBACTAM 4.5 GM VIAL IVPB ONE ×2 (02:37→10:49)
[2018-05-20] MEDS ORDERED: DEXTROSE 5%-WATER 100 ML IVPB ONE ×2 (02:37→10:49)
[2018-05-20] MEDS: PIPERACILLIN/TAZOB 4.5 GM 4.5 GM in DEXTROSE 5%-WATER 100 ML IVPB SCH ×2 (02:44→11:02)
[2018-05-20] MEDS: VANCOMYCIN 250 MG/5 ML ORAL SOLUTION NGT SCH ×3 (06:03→18:05)
[2018-05-20] MEDS: LEVOTHYROXINE NA 100 MCG TABLET (FP) NGT SCH (06:03)
[2018-05-20] MEDS: hydrALAZINE HCL 50 MG TABLET (FP) NGT SCH ×3 (06:04→22:02)
[2018-05-20] MEDS: carBAMazepine 100 MG TAB.CHEW NGT SCH ×3 (06:04→22:05)
[2018-05-20 06:32] LABS: HEMATOCRIT 26.9 % (32.4-45.2); HEMOGLOBIN 9.1 GM/dL (10.7-15.3); MCH 31.6 pg (25.7-33.7); MEAN PLT VOLUME 7.9 fl (7.5-11.1); PLATELET COUNT 407 K/MM3 (134-434); RBC 2.89 M/mm3 (3.60-5.2); RDW 15.4 % (11.6-15.6); WHITE BLOOD COUNT 4.3 K/mm3 (4.0-10.0)
[2018-05-20 07:03] LABS: ALK PHOS 143 U/L (45-117); ANION GAP 2 MMOL/L (8-16); BILIRUBIN,TOTAL 0.2 mg/dL (0.2-1); BLOOD UREA NITROGEN 19 mg/dL (7-18); CALCIUM 8.2 mg/dL (8.5-10.1); CHLORIDE 103 mmol/L (98-107); CO2 32 mmol/L (21-32); CREATININE 0.6 mg/dL (0.55-1.3); GLUCOSE,RANDOM 118 mg/dL (74-106); MAGNESIUM 2.5 mg/dL (1.8-2.4); PHOSPHOROUS 3.6 mg/dL (2.5-4.9); POTASSIUM 4.5 mmol/L (3.5-5.1); SGOT/AST 14 U/L (15-37); SGPT/ALT 17 U/L (13-61); SODIUM 137 mmol/L (136-145); TOT PROT 7.1 g/dl (6.4-8.2)
[2018-05-20] MEDS: ALBUTEROL SO4 2.5/IPRATROPIUM 0.5 INH SOL 3 ML VIAL.NEB. NEB SCH ×4 (07:15→20:50)
[2018-05-20 10:05] LABS: BASO % 1.2 % (0-2.0); EOS % 2.6 % (0-4.5); HEMATOCRIT 28.7 % (32.4-45.2); HEMOGLOBIN 9.5 GM/dL (10.7-15.3); LYMPH % 14.5 % (8-40); MEAN CELL VOLUME 93.9 fl (80-96); MEAN PLT VOLUME 8.4 fl (7.5-11.1); MONO % 9.5 % (3.8-10.2); NEUT % 72.2 % (42.8-82.8); PLATELET COUNT 390 K/MM3 (134-434); RBC 3.06 M/mm3 (3.60-5.2); RDW 15.7 % (11.6-15.6); WHITE BLOOD COUNT 4.7 K/mm3 (4.0-10.0)
[2018-05-20] MEDS ORDERED: PT OWN MED DRAWER 7, Y5N ONE ×4 (10:49→21:40)
[2018-05-20] MEDS: SERTRALINE HCL 50 MG TABLET (FP) NGT SCH (10:58)
[2018-05-20] MEDS: CYANOCOBALAMIN 1,000 MCG TABLET (FP) NGT SCH (10:58)
[2018-05-20] MEDS: METOPROLOL TARTRATE 50 MG TABLET (FP) NGT SCH ×2 (10:58→22:03)
[2018-05-20] MEDS: LORATADINE 10 MG TABLET NGT SCH (10:58)
[2018-05-20] MEDS: NAPH,MB-DB/K PH,MBDB POWDER PACKET NGT SCH (10:59)
[2018-05-20] MEDS: FOLIC ACID 1 MG TABLET (FP) NGT SCH (10:59)
[2018-05-20] MEDS: FERROUS SO4 300 MG/5 ML ORAL SOLN UNIT DOSE CUPS NGT SCH (10:59)
[2018-05-20] MEDS: ZINC SULFATE 220 MG CAPSULE (FP) NGT SCH (10:59)
[2018-05-20] MEDS: BACITRACIN 15 GM TUBE TOPICAL OINTMENT TP SCH ×2 (11:00→22:12)
[2018-05-20] MEDS: MULTIVIT-MINERALS ORAL LIQUID NGT SCH (11:00)
[2018-05-20] MEDS: LACTOBACILLUS ACIDOPHILUS 1 TABLET NGT SCH ×2 (11:01→22:05)
[2018-05-20] MEDS: PANTOPRAZOLE SODIUM 40 MG VIAL IVPUSH SCH ×2 (11:01→22:05)
[2018-05-20] MEDS: SODIUM CHLORIDE 1 GM TABLET NGT SCH (11:02)
[2018-05-20] MEDS: ASCORBIC ACID 500 MG/5 ML UNIT DOSE CUP NGT SCH (11:02)
--- NOTE | 2018-05-20 12:54 | PN ---
Progress Note (short form) - Note Progress Note: PULMONARY Trach collar during day/vent at night and during care VSS/AFEBRILE Gen: awake/offers no complaints Heart: RRR Lung: decreased breath sounds at the bases Abd: soft, nontender Ext: no edema Active Medications noted A/P Chronic Respiratory Failure Pneumonia likely Aspiration treated +C Diff Ag Multiple Sclerosis Functional Quadriplegia Hyponatremia resolved HTN Hypothyroidism Depression - antibiotics per ID - inhaled bronchodilators - aspiration precautions - enteral feeds - DVT/GI prophylaxis Chris TINEO MD
[2018-05-20] MEDS ORDERED: LIDOCAINE HCL 4% TOPICAL SOLN (50 ML/BOTTLE) TP ONE (13:00)
--- NOTE | 2018-05-20 13:04 | PN ---
Progress Note, [employer]URE IN[employer]CTOR - Note Progress Note: Pt tolerated trach collar yesterday and was placed on again today. PMV reassessment performed. Voice has improved - low volume and fairly euphonic. Initially o2 was 96 but dropped to 90 with pt c/o need for suctioning. PMV removed and pt suction a good amount of secretions/phlegm. Pt tolerated pmv for 5 minutes. Increase use of PMV, as tolerated for short intervals to increase sensation, voicing, swallowing function. Monitor o2 sat and remove/suction as needed. Pt asking when PEG will be placed. Discussed that once she gives the approval, they will schedule it as medically indicated. Discussed with pt and mom/LINE COOK to call [facility] to set up out pt augmentative communication evaluation for when pt is discharged. Scripts needed.
--- NOTE | 2018-05-20 13:26 | PN ---
Progress Note, Physician Chief Complaint: patient seen today on trach collar wants to go back on the vent pateint told me she wants peg tube placement done wounds bleeding - Current Medication List Current Medications: Active Medications Acetaminophen (Tylenol Oral Solution -) 650 mg NGT Q6H PRN PRN Reason: FEVER Last Admin: 05/19/18 21:41 Dose: 650 mg Albuterol/Ipratropium (Duoneb -) 1 amp NEB RQID [facility] Last Admin: 05/20/18 12:02 Dose: 1 amp Ascorbic Acid (Vitamin C Oral Solution -) 500 mg NGT DAILY [facility] Last Admin: 05/20/18 11:02 Dose: 500 mg Bacitracin (Bacitracin -) 1 applic TP BID [facility] Last Admin: 05/20/18 11:00 Dose: 1 applic Carbamazepine (Tegretol -) 100 mg NGT TID [facility] Last Admin: 05/20/18 06:04 Dose: 100 mg Collagenase (Santyl -) 1 applic TP DAILY [facility]; Protocol Last Admin: 05/19/18 10:26 Dose: 1 applic Cyanocobalamin (Vitamin B12 -) 1,000 mcg NGT DAILY [facility] Last Admin: 05/20/18 10:58 Dose: 1,000 mcg Diphenoxylate HCl/Atropine (Lomotil -) 1 combo PO Q8H PRN PRN Reason: DIARRHEA Last Admin: 05/19/18 10:43 Dose: 1 combo Ferrous Sulfate (Feosol) 300 mg NGT DAILY [facility] Last Admin: 05/20/18 10:59 Dose: 300 mg Folic Acid (Folic Acid -) 1 mg NGT DAILY [facility] Last Admin: 05/20/18 10:59 Dose: 1 mg Hydralazine HCl (Apresoline -) 50 mg NGT TID [facility] Last Admin: 05/20/18 06:04 Dose: 50 mg Piperacillin Sod/Tazobactam (Sod 4.5 gm/ Dextrose) 100 mls @ 200 mls/hr IVPB Q8H-IV [facility]; Protocol Last Admin: 05/20/18 11:02 Dose: 200 mls/hr Vancomycin HCl 1,250 mg/ (Dextrose) 250 mls @ 250 mls/2 hr IVPB Q24H [facility]; Protocol Last Admin: 05/19/18 16:31 Dose: 250 mls/2 hr Lactobacillus Acidophilus (Bacid -) 1 tab NGT BID [facility] Last Admin: 05/20/18 11:01 Dose: 1 tab Levothyroxine Sodium (Synthroid -) 100 mcg NGT DAILY@0700 [facility] Last Admin: 05/20/18 06:03 Dose: 100 mcg Loratadine (Claritin -) 10 mg NGT DAILY [facility] Last Admin: 05/20/18 10:58 Dose: 10 mg Metoprolol Tartrate (Lopressor -) 50 mg NGT BID [facility] Last Admin: 05/20/18 10:58 Dose: 50 mg Mirtazapine (Remeron -) 7.5 mg NGT HS [facility] Last Admin: 05/19/18 21:43 Dose: 7.5 mg Nystatin/Triamcinolone Acetonide (Mycolog Ii Ointment -) 1 applic TP BID [facility] Last Admin: 05/19/18 21:44 Dose: 1 applic Pantoprazole Sodium (Protonix Iv) 40 mg IVPUSH BID [facility] Last Admin: 05/20/18 11:01 Dose: 40 mg Potassium Phos/Sodium Phos (Phos-Nak Packet -) 1 packet NGT DAILY [facility] Last Admin: 05/20/18 10:59 Dose: 1 packet Sertraline HCl (Zoloft -) 50 mg NGT DAILY [facility] Last Admin: 05/20/18 10:58 Dose: 50 mg Sodium Chloride (Sodium Chloride Tablet -) 1 gm NGT DAILY [facility] Last Admin: 05/20/18 11:02 Dose: 1 gm Vancomycin HCl (Vancomycin Oral Solution) 125 mg NGT Q6HPO [facility] Last Admin: 05/20/18 06:03 Dose: 125 mg Zinc Sulfate (Orazinc -) 220 mg NGT DAILY [facility] Last Admin: 05/20/18 10:59 Dose: 220 mg - Objective Vital Signs: Vital Signs Temperature 97.8 F 05/20/18 10:00 Pulse Rate 78 05/20/18 11:07 Respiratory Rate 20 05/20/18 11:58 Blood Pressure 116/65 05/20/18 10:00 O2 Sat by Pulse Oximetry (%) 97 05/20/18 11:07 Constitutional: Yes: Calm HENT: Yes: Other (ng tube) Neck: Yes: Other (trach) Cardiovascular: Yes: Regular Rate and Rhythm, S1, S2 Respiratory: Yes: Other (trach collar) Gastrointestinal: Yes: Normal Bowel Sounds, Soft Genitourinary: Yes: Perera Present Edema: No Neurological: Yes: Pre-Existing Deficit Labs: CBC, BMP 05/20/18 09:25 05/20/18 06:00 Problem List - Problems (1) Hyponatremia Assessment/Plan: resolved Code(s): E87.1 - HYPO-OSMOLALITY AND HYPONATREMIA (2) Anemia Assessment/Plan: s/p prbc will continue to monitor h/h Code(s): D64.9 - ANEMIA, UNSPECIFIED (3) Hypothyroid Assessment/Plan: will switch back to synthroid 100mcg via ng tube daily Code(s): E03.9 - HYPOTHYROIDISM, UNSPECIFIED (4) Hyperkalemia Assessment/Plan: potassium imbalance resolved Code(s): E87.5 - HYPERKALEMIA (5) Hx of multiple sclerosis Assessment/Plan: vent support appreciate neurology note dvt ppx NG tube placed by IR for aspiration patient told me today she wasnts peg tube placemetn ordered it via IR dara be done wednesday Code(s): Z86.69 - PERSONAL HISTORY OF DIS OF THE NERVOUS SYS AND SENSE ORGANS (6) Electrolyte imbalance Assessment/Plan: repeat labs ordered- na,k ,mag normal Code(s): E87.8 - OTH DISORDERS OF ELECTROLYTE AND FLUID BALANCE, NEC (7) Functional quadriplegia secondary to MS Assessment/Plan: perera frequent turn positon dr jeffries- to see patient today as wound is bleeding dvt ppx pallitive care team Code(s): G35 - MULTIPLE SCLEROSIS; R53.2 - FUNCTIONAL QUADRIPLEGIA (8) Insomnia Assessment/Plan: in the hospital will give clonazzepam at night that what she takes at home and put her on the vent at night and in the morning till she is fully awake Code(s): G47.00 - INSOMNIA, UNSPECIFIED (9) Pneumonia Assessment/Plan: RLL on zosyn and vacomcyin day 01/19 Code(s): J18.9 - PNEUMONIA, UNSPECIFIED ORGANISM Qualifiers: Pneumonia type: pneumonia due to methicillin-resistant Staphylococcus aureus (MRSA) (10) C. difficile diarrhea Assessment/Plan: po vancomycin till 05/24 Microbiology 05/14/18 12:00 Stool Clostridioides difficile Antigen - Final 03/09/19 12:00 Stool Clostridioides difficile Toxin Assay - Final Code(s): A04.72 - ENTEROCOLITIS D/T CLOSTRIDIUM DIFFICILE, NOT SPCF RECUR
[2018-05-20] MEDS: DIPHENOXYLATE 2.5/ATROPINE.025 1 COMBO TABLET PO PRN (13:51)
[2018-05-20 15:29] LABS: INR 1.15 (0.83-1.09); PROTHROMBIN TIME (PATIENT) 13.6 SEC (9.7-13.0)
[2018-05-20] MEDS: COLLAGENASE CLOSTRIDIUM HIST. 30 GRAMS TUBE TP SCH (16:21)
[2018-05-20] MEDS: VANCOMYCIN HCL 1,250 MG in DEXTROSE 5%-WATER - 250 ML IVPB SCH (16:21)
[2018-05-20] MEDS: NYSTATIN/TRIAMCINOLONE TOPICAL OINTMENT 15 GM TUBE TP SCH ×2 (16:22→22:12)
[2018-05-20] MEDS: MIRTAZAPINE 15 MG TABLET (FP) NGT SCH (22:05)
[2018-05-21] MEDS: VANCOMYCIN 250 MG/5 ML ORAL SOLUTION NGT SCH ×5 (01:03→23:22)
[2018-05-21] MEDS: hydrALAZINE HCL 50 MG TABLET (FP) NGT SCH ×3 (06:39→23:20)
[2018-05-21] MEDS: LEVOTHYROXINE NA 100 MCG TABLET (FP) NGT SCH (06:39)
[2018-05-21] MEDS: carBAMazepine 100 MG TAB.CHEW NGT SCH ×3 (06:39→23:09)
[2018-05-21] MEDS: ALBUTEROL SO4 2.5/IPRATROPIUM 0.5 INH SOL 3 ML VIAL.NEB. NEB SCH ×4 (08:14→20:52)
[2018-05-21 08:56] LABS: BASO % 0.6 % (0-2.0); EOS % 3.1 % (0-4.5); HEMOGLOBIN 8.9 GM/dL (10.7-15.3); LYMPH % 15.5 % (8-40); MCH 32.1 pg (25.7-33.7); MCHC 34.2 g/dl (32.0-36.0); MEAN CELL VOLUME 93.8 fl (80-96); MEAN PLT VOLUME 8.8 fl (7.5-11.1); MONO % 10.7 % (3.8-10.2); NEUT % 70.1 % (42.8-82.8); PLATELET COUNT 413 K/MM3 (134-434); RBC 2.77 M/mm3 (3.60-5.2); RDW 15.4 % (11.6-15.6); WHITE BLOOD COUNT 4.9 K/mm3 (4.0-10.0)
[2018-05-21 09:11] LABS: ALK PHOS 142 U/L (45-117); ANION GAP 5 MMOL/L (8-16); BILIRUBIN,TOTAL 0.3 mg/dL (0.2-1); BLOOD UREA NITROGEN 19 mg/dL (7-18); CALCIUM 8.2 mg/dL (8.5-10.1); CHLORIDE 102 mmol/L (98-107); CO2 30 mmol/L (21-32); CREATININE 0.6 mg/dL (0.55-1.3); GLUCOSE,RANDOM 122 mg/dL (74-106); MAGNESIUM 2.1 mg/dL (1.8-2.4); PHOSPHOROUS 3.4 mg/dL (2.5-4.9); POTASSIUM 4.9 mmol/L (3.5-5.1); SGOT/AST 13 U/L (15-37); SGPT/ALT 15 U/L (13-61); SODIUM 138 mmol/L (136-145); TOT PROT 7.1 g/dl (6.4-8.2)
[2018-05-21] MEDS ORDERED: PT OWN MED DRAWER 7, Y5N ONE ×3 (09:16→22:53)
[2018-05-21] MEDS: CYANOCOBALAMIN 1,000 MCG TABLET (FP) NGT SCH (09:30)
[2018-05-21] MEDS: ZINC SULFATE 220 MG CAPSULE (FP) NGT SCH (09:31)
[2018-05-21] MEDS: NAPH,MB-DB/K PH,MBDB POWDER PACKET NGT SCH (09:31)
[2018-05-21] MEDS: LACTOBACILLUS ACIDOPHILUS 1 TABLET NGT SCH ×2 (09:31→23:20)
[2018-05-21] MEDS: SERTRALINE HCL 50 MG TABLET (FP) NGT SCH (09:31)
[2018-05-21] MEDS: LORATADINE 10 MG TABLET NGT SCH (09:31)
[2018-05-21] MEDS: FOLIC ACID 1 MG TABLET (FP) NGT SCH (09:31)
[2018-05-21] MEDS: METOPROLOL TARTRATE 50 MG TABLET (FP) NGT SCH ×2 (09:31→23:20)
[2018-05-21] MEDS: FERROUS SO4 300 MG/5 ML ORAL SOLN UNIT DOSE CUPS NGT SCH (09:32)
[2018-05-21] MEDS: MULTIVIT-MINERALS ORAL LIQUID NGT SCH (09:32)
[2018-05-21] MEDS: ASCORBIC ACID 500 MG/5 ML UNIT DOSE CUP NGT SCH (09:32)
[2018-05-21] MEDS: PANTOPRAZOLE SODIUM 40 MG VIAL IVPUSH SCH ×2 (09:33→23:20)
[2018-05-21] MEDS: SODIUM CHLORIDE 1 GM TABLET NGT SCH (09:33)
[2018-05-21] MEDS: BACITRACIN 15 GM TUBE TOPICAL OINTMENT TP SCH ×2 (09:44→23:21)
[2018-05-21] MEDS: COLLAGENASE CLOSTRIDIUM HIST. 30 GRAMS TUBE TP SCH (10:41)
[2018-05-21] MEDS: NYSTATIN/TRIAMCINOLONE TOPICAL OINTMENT 15 GM TUBE TP SCH ×2 (10:41→23:21)
[2018-05-21] MEDS: ACETAMINOPHEN 650 MG/20.3 ML ORAL SOLUTION (CUPS) NGT PRN (11:17)
--- NOTE | 2018-05-21 13:37 | PN ---
Progress Note, Physician Chief Complaint: AMS Hyponatremia Anemia acute on chronic resp failure History of Present Illness: NAD family at bedside PEG on wednesday - Current Medication List Current Medications: Active Medications Acetaminophen (Tylenol Oral Solution -) 650 mg NGT Q6H PRN PRN Reason: FEVER Last Admin: 05/21/18 11:17 Dose: 650 mg Albuterol/Ipratropium (Duoneb -) 1 amp NEB RQID [facility] Last Admin: 05/21/18 11:26 Dose: 1 amp Ascorbic Acid (Vitamin C Oral Solution -) 500 mg NGT DAILY [facility] Last Admin: 05/21/18 09:32 Dose: 500 mg Bacitracin (Bacitracin -) 1 applic TP BID [facility] Last Admin: 05/21/18 09:44 Dose: 1 applic Carbamazepine (Tegretol -) 200 mg NGT TID [facility] Collagenase (Santyl -) 1 applic TP DAILY [facility]; Protocol Last Admin: 05/20/18 16:21 Dose: 1 applic Cyanocobalamin (Vitamin B12 -) 1,000 mcg NGT DAILY [facility] Last Admin: 05/21/18 09:30 Dose: 1,000 mcg Diphenoxylate HCl/Atropine (Lomotil -) 1 combo PO Q8H PRN PRN Reason: DIARRHEA Last Admin: 05/20/18 13:51 Dose: 1 combo Ferrous Sulfate (Feosol) 300 mg NGT DAILY [facility] Last Admin: 05/21/18 09:32 Dose: 300 mg Folic Acid (Folic Acid -) 1 mg NGT DAILY [facility] Last Admin: 05/21/18 09:31 Dose: 1 mg Hydralazine HCl (Apresoline -) 50 mg NGT TID [facility] Last Admin: 05/21/18 06:39 Dose: 50 mg Vancomycin HCl 1,250 mg/ (Dextrose) 250 mls @ 250 mls/2 hr IVPB Q24H [facility]; Protocol Last Admin: 05/20/18 16:21 Dose: 250 mls/2 hr Lactobacillus Acidophilus (Bacid -) 1 tab NGT BID [facility] Last Admin: 05/21/18 09:31 Dose: 1 tab Levothyroxine Sodium (Synthroid -) 100 mcg NGT DAILY@0700 [facility] Last Admin: 05/21/18 06:39 Dose: 100 mcg Loratadine (Claritin -) 10 mg NGT DAILY [facility] Last Admin: 05/21/18 09:31 Dose: 10 mg Metoprolol Tartrate (Lopressor -) 50 mg NGT BID [facility] Last Admin: 05/21/18 09:31 Dose: 50 mg Mirtazapine (Remeron -) 7.5 mg NGT HS [facility] Last Admin: 05/20/18 22:05 Dose: 7.5 mg Nystatin/Triamcinolone Acetonide (Mycolog Ii Ointment -) 1 applic TP BID [facility] Last Admin: 05/20/18 22:12 Dose: 1 applic Pantoprazole Sodium (Protonix Iv) 40 mg IVPUSH BID [facility] Last Admin: 05/21/18 09:33 Dose: 40 mg Potassium Phos/Sodium Phos (Phos-Nak Packet -) 1 packet NGT DAILY [facility] Last Admin: 05/21/18 09:31 Dose: 1 packet Sertraline HCl (Zoloft -) 50 mg NGT DAILY [facility] Last Admin: 05/21/18 09:31 Dose: 50 mg Sodium Chloride (Sodium Chloride Tablet -) 1 gm NGT DAILY [facility] Last Admin: 05/21/18 09:33 Dose: 1 gm Vancomycin HCl (Vancomycin Oral Solution) 125 mg NGT Q6HPO [facility] Last Admin: 05/21/18 11:16 Dose: 125 mg Zinc Sulfate (Orazinc -) 220 mg NGT DAILY [facility] Last Admin: 05/21/18 09:31 Dose: 220 mg - Objective Vital Signs: Vital Signs Temperature 97.9 F 05/21/18 09:46 Pulse Rate 81 05/21/18 09:50 Respiratory Rate 16 05/21/18 09:46 Blood Pressure 110/80 05/21/18 09:46 O2 Sat by Pulse Oximetry (%) 95 05/21/18 13:15 Constitutional: Yes: Well Nourished, No Distress, Calm Cardiovascular: Yes: Regular Rate and Rhythm Respiratory: Yes: Regular Gastrointestinal: Yes: Normal Bowel Sounds, Soft Musculoskeletal: Yes: WNL Extremities: Yes: WNL Edema: No Peripheral Pulses WNL: Yes Neurological: Yes: Alert, Oriented Psychiatric: Yes: Alert, Oriented Labs: CBC, BMP 05/21/18 07:15 05/21/18 07:15 INR, PTT INR 1.15 (0.83-1.09) H 05/20/18 14:15 Problem List - Problems (1) Anemia Assessment/Plan: s/p prbc will continue to monitor h/h Code(s): D64.9 - ANEMIA, UNSPECIFIED (2) C. difficile diarrhea Assessment/Plan: -Vanco GT QID -Contact isolation -Seen by GI Code(s): A04.72 - ENTEROCOLITIS D/T CLOSTRIDIUM DIFFICILE, NOT SPCF RECUR (3) Electrolyte imbalance Assessment/Plan: -monitor trend Code(s): E87.8 - OTH DISORDERS OF ELECTROLYTE AND FLUID BALANCE, NEC (4) Functional 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 (5) Toxic metabolic encephalopathy Code(s): G92 - TOXIC ENCEPHALOPATHY (6) Acute on chronic respiratory failure with hypoxia and hypercapnia Assessment/Plan: -mechanical vent PRN -Pulmonary on board -bronchodilators Code(s): J96.21 - ACUTE AND CHRONIC RESPIRATORY FAILURE WITH HYPOXIA; J96.22 - ACUTE AND CHRONIC RESPIRATORY FAILURE WITH HYPERCAPNIA Assessment/Plan See problem list Plan discussed with pt's sister Kiley
--- NOTE | 2018-05-21 14:09 | PN ---
Progress Note (short form) - Note Progress Note: PULMONARY On trach collar, denies shortness of breath. c/o facial neuralgia. Vital Signs Period Temp Pulse Resp BP Sys/Morillo Pulse Ox Last 24 Hr 97.9 F-98.3 F 78-96 16-22 110-136/59-80 95-118 Gen: awake on trach collar Heart: RRR Lung: decreased breath sounds at the bases Abd: soft, nontender Ext: no edema CBC, BMP 05/21/18 07:15 05/21/18 07:15 Active Medications Acetaminophen (Tylenol Oral Solution -) 650 mg NGT Q6H PRN PRN Reason: FEVER Last Admin: 05/21/18 11:17 Dose: 650 mg Albuterol/Ipratropium (Duoneb -) 1 amp NEB RQID [facility] Last Admin: 05/21/18 11:26 Dose: 1 amp Ascorbic Acid (Vitamin C Oral Solution -) 500 mg NGT DAILY [facility] Last Admin: 05/21/18 09:32 Dose: 500 mg Bacitracin (Bacitracin -) 1 applic TP BID [facility] Last Admin: 05/21/18 09:44 Dose: 1 applic Carbamazepine (Tegretol -) 200 mg NGT TID [facility] Collagenase (Santyl -) 1 applic TP DAILY [facility]; Protocol Last Admin: 05/20/18 16:21 Dose: 1 applic Cyanocobalamin (Vitamin B12 -) 1,000 mcg NGT DAILY [facility] Last Admin: 05/21/18 09:30 Dose: 1,000 mcg Diphenoxylate HCl/Atropine (Lomotil -) 1 combo PO Q8H PRN PRN Reason: DIARRHEA Last Admin: 05/20/18 13:51 Dose: 1 combo Ferrous Sulfate (Feosol) 300 mg NGT DAILY [facility] Last Admin: 05/21/18 09:32 Dose: 300 mg Folic Acid (Folic Acid -) 1 mg NGT DAILY [facility] Last Admin: 05/21/18 09:31 Dose: 1 mg Hydralazine HCl (Apresoline -) 50 mg NGT TID [facility] Last Admin: 05/21/18 06:39 Dose: 50 mg Vancomycin HCl 1,250 mg/ (Dextrose) 250 mls @ 250 mls/2 hr IVPB Q24H [facility]; Protocol Last Admin: 05/20/18 16:21 Dose: 250 mls/2 hr Lactobacillus Acidophilus (Bacid -) 1 tab NGT BID [facility] Last Admin: 05/21/18 09:31 Dose: 1 tab Levothyroxine Sodium (Synthroid -) 100 mcg NGT DAILY@0700 [facility] Last Admin: 05/21/18 06:39 Dose: 100 mcg Loratadine (Claritin -) 10 mg NGT DAILY [facility] Last Admin: 05/21/18 09:31 Dose: 10 mg Metoprolol Tartrate (Lopressor -) 50 mg NGT BID [facility] Last Admin: 05/21/18 09:31 Dose: 50 mg Mirtazapine (Remeron -) 7.5 mg NGT HS [facility] Last Admin: 05/20/18 22:05 Dose: 7.5 mg Nystatin/Triamcinolone Acetonide (Mycolog Ii Ointment -) 1 applic TP BID [facility] Last Admin: 05/20/18 22:12 Dose: 1 applic Pantoprazole Sodium (Protonix Iv) 40 mg IVPUSH BID [facility] Last Admin: 05/21/18 09:33 Dose: 40 mg Potassium Phos/Sodium Phos (Phos-Nak Packet -) 1 packet NGT DAILY [facility] Last Admin: 05/21/18 09:31 Dose: 1 packet Sertraline HCl (Zoloft -) 50 mg NGT DAILY [facility] Last Admin: 05/21/18 09:31 Dose: 50 mg Sodium Chloride (Sodium Chloride Tablet -) 1 gm NGT DAILY [facility] Last Admin: 05/21/18 09:33 Dose: 1 gm Vancomycin HCl (Vancomycin Oral Solution) 125 mg NGT Q6HPO [facility] Last Admin: 05/21/18 11:16 Dose: 125 mg Zinc Sulfate (Orazinc -) 220 mg NGT DAILY [facility] Last Admin: 05/21/18 09:31 Dose: 220 mg A/P Chronic Respiratory Failure Pneumonia likely Aspiration treated +C Diff Ag Multiple Sclerosis Functional Quadriplegia Hyponatremia resolved HTN Hypothyroidism Depression - antibiotics per ID - inhaled bronchodilators - trach collar during day, vent support at night - aspiration precautions - enteral feeds - for PEG placement - DVT/GI prophylaxis
--- NOTE | 2018-05-21 16:28 | PN ---
Progress Note (short form) - Note Progress Note: hyponatremia resolved prerenal azotemia MS/ quadriplegia siadh pna c diff Current Medications Acetaminophen (Tylenol Oral Solution -) 650 mg NGT Q6H PRN PRN Reason: FEVER Last Admin: 05/21/18 11:17 Dose: 650 mg Albuterol/Ipratropium (Duoneb -) 1 amp NEB RQID [facility] Last Admin: 05/21/18 16:30 Dose: 1 amp Ascorbic Acid (Vitamin C Oral Solution -) 500 mg NGT DAILY [facility] Last Admin: 05/21/18 09:32 Dose: 500 mg Bacitracin (Bacitracin -) 1 applic TP BID [facility] Last Admin: 05/21/18 09:44 Dose: 1 applic Carbamazepine (Tegretol -) 200 mg NGT TID [facility] Last Admin: 05/21/18 14:55 Dose: 200 mg Collagenase (Santyl -) 1 applic TP DAILY [facility]; Protocol Last Admin: 05/21/18 10:41 Dose: 1 applic Cyanocobalamin (Vitamin B12 -) 1,000 mcg NGT DAILY [facility] Last Admin: 05/21/18 09:30 Dose: 1,000 mcg Diphenoxylate HCl/Atropine (Lomotil -) 1 combo PO Q8H PRN PRN Reason: DIARRHEA Last Admin: 05/20/18 13:51 Dose: 1 combo Ferrous Sulfate (Feosol) 300 mg NGT DAILY [facility] Last Admin: 05/21/18 09:32 Dose: 300 mg Folic Acid (Folic Acid -) 1 mg NGT DAILY [facility] Last Admin: 05/21/18 09:31 Dose: 1 mg Hydralazine HCl (Apresoline -) 50 mg NGT TID [facility] Last Admin: 05/21/18 14:45 Dose: 50 mg Vancomycin HCl 1,250 mg/ (Dextrose) 250 mls @ 250 mls/2 hr IVPB Q24H [facility]; Protocol Last Admin: 05/21/18 17:40 Dose: 250 mls/2 hr Lactobacillus Acidophilus (Bacid -) 1 tab NGT BID [facility] Last Admin: 05/21/18 09:31 Dose: 1 tab Levothyroxine Sodium (Synthroid -) 100 mcg NGT DAILY@0700 [facility] Last Admin: 05/21/18 06:39 Dose: 100 mcg Loratadine (Claritin -) 10 mg NGT DAILY [facility] Last Admin: 05/21/18 09:31 Dose: 10 mg Metoprolol Tartrate (Lopressor -) 50 mg NGT BID [facility] Last Admin: 05/21/18 09:31 Dose: 50 mg Mirtazapine (Remeron -) 7.5 mg NGT HS [facility] Last Admin: 05/20/18 22:05 Dose: 7.5 mg Nystatin/Triamcinolone Acetonide (Mycolog Ii Ointment -) 1 applic TP BID [facility] Last Admin: 05/21/18 10:41 Dose: 1 applic Pantoprazole Sodium (Protonix Iv) 40 mg IVPUSH BID [facility] Last Admin: 05/21/18 09:33 Dose: 40 mg Potassium Phos/Sodium Phos (Phos-Nak Packet -) 1 packet NGT DAILY [facility] Last Admin: 05/21/18 09:31 Dose: 1 packet Sertraline HCl (Zoloft -) 50 mg NGT DAILY [facility] Last Admin: 05/21/18 09:31 Dose: 50 mg Sodium Chloride (Sodium Chloride Tablet -) 1 gm NGT DAILY [facility] Last Admin: 05/21/18 09:33 Dose: 1 gm Vancomycin HCl (Vancomycin Oral Solution) 125 mg NGT Q6HPO [facility] Last Admin: 05/21/18 17:41 Dose: 125 mg Zinc Sulfate (Orazinc -) 220 mg NGT DAILY [facility] Last Admin: 05/21/18 09:31 Dose: 220 mg Last Vital Signs Temp Pulse Resp BP Pulse Ox 98.4 F 81 10 111/75 95 05/21/18 18:00 05/21/18 18:00 05/21/18 18:00 05/21/18 18:00 05/21/18 13:15 Gen: awake Neck trach collar Heart: RRR Lung: clear Abd: soft, nontender Ext: no edema CBC, BMP 05/21/18 07:15 05/21/18 07:15 Plan same rx
[2018-05-21] MEDS: VANCOMYCIN HCL 1,250 MG in DEXTROSE 5%-WATER - 250 ML IVPB SCH (17:40)
--- NOTE | 2018-05-21 20:09 | PN ---
Progress Note (short form) - Note Progress Note: FU regarding Multiple decubitii Patient general condition has been fragile, during visit she was having loosing motions/diarrhea Wound were evaluated but not debrided in fear of worse results from local infectiont Microbiology 05/14/18 12:00 Stool Clostridioides difficile Antigen - Final 05/14/18 12:00 Stool Clostridioides difficile Toxin Assay - Final 05/08/18 19:00 Urine - Urine Raza Legionella Antigen - Final 05/08/18 19:00 Urine - Urine Raza Streptococcus pneumoniae Antigen (M - Final 05/06/18 18:30 Sputum - Endotrachea Suction/Ventilator Gram Stain - Final 05/06/18 18:30 Sputum - Endotrachea Suction/Ventilator Sputum Culture - Final Pseudomonas Aeruginosa Serratia Marcescens Mr S Aureus Selected Entries 05/21/18 05/21/18 17:25 18:00 Temperature 98.4 F Respiratory 10 Rate Blood Pressure 111/75 Fraction of 35 Inspired Oxygen (FIO2)
[2018-05-21] MEDS: MIRTAZAPINE 15 MG TABLET (FP) NGT SCH (23:21)
[2018-05-21] MEDS: carBAMazepine 200 MG/10 ML UNIT-DOSE CUP NGT SCH (23:21)
[2018-05-21] MEDS: DIPHENOXYLATE 2.5/ATROPINE.025 1 COMBO TABLET PO PRN (23:41)
[2018-05-22] MEDS: hydrALAZINE HCL 50 MG TABLET (FP) NGT SCH ×3 (07:12→21:17)
[2018-05-22] MEDS: VANCOMYCIN 250 MG/5 ML ORAL SOLUTION NGT SCH ×4 (07:12→23:43)
[2018-05-22] MEDS: LEVOTHYROXINE NA 100 MCG TABLET (FP) NGT SCH (07:12)
[2018-05-22] MEDS: carBAMazepine 200 MG/10 ML UNIT-DOSE CUP NGT SCH ×3 (07:13→21:16)
[2018-05-22] MEDS: ALBUTEROL SO4 2.5/IPRATROPIUM 0.5 INH SOL 3 ML VIAL.NEB. NEB SCH ×4 (07:58→20:55)
[2018-05-22] MEDS ORDERED: PT OWN MED DRAWER 7, Y5N ONE ×3 (10:24→14:12)
[2018-05-22] MEDS: SODIUM CHLORIDE 1 GM TABLET NGT SCH (10:28)
[2018-05-22] MEDS: LACTOBACILLUS ACIDOPHILUS 1 TABLET NGT SCH ×2 (10:28→21:16)
[2018-05-22] MEDS: PANTOPRAZOLE SODIUM 40 MG VIAL IVPUSH SCH ×2 (10:28→21:18)
[2018-05-22] MEDS: CYANOCOBALAMIN 1,000 MCG TABLET (FP) NGT SCH (10:28)
[2018-05-22] MEDS: FOLIC ACID 1 MG TABLET (FP) NGT SCH (10:28)
[2018-05-22] MEDS: FERROUS SO4 300 MG/5 ML ORAL SOLN UNIT DOSE CUPS NGT SCH (10:28)
[2018-05-22] MEDS: ASCORBIC ACID 500 MG/5 ML UNIT DOSE CUP NGT SCH (10:28)
[2018-05-22] MEDS: ZINC SULFATE 220 MG CAPSULE (FP) NGT SCH (10:28)
[2018-05-22] MEDS: SERTRALINE HCL 50 MG TABLET (FP) NGT SCH (10:28)
[2018-05-22] MEDS: METOPROLOL TARTRATE 50 MG TABLET (FP) NGT SCH ×2 (10:28→21:16)
[2018-05-22] MEDS: MULTIVIT-MINERALS ORAL LIQUID NGT SCH (10:29)
[2018-05-22] MEDS: NAPH,MB-DB/K PH,MBDB POWDER PACKET NGT SCH (10:29)
[2018-05-22] MEDS: NYSTATIN/TRIAMCINOLONE TOPICAL OINTMENT 15 GM TUBE TP SCH ×2 (10:29→21:20)
[2018-05-22] MEDS: BACITRACIN 15 GM TUBE TOPICAL OINTMENT TP SCH ×2 (10:29→21:20)
[2018-05-22] MEDS: LORATADINE 10 MG TABLET NGT SCH (10:29)
--- NOTE | 2018-05-22 11:27 | PN ---
Progress Note, Physician Chief Complaint: AMS Hyponatremia Anemia acute on chronic resp failure History of Present Illness: NAD family at bedside Plan for PEG on wednesday Consent signed - Current Medication List Current Medications: Active Medications Acetaminophen (Tylenol Oral Solution -) 650 mg NGT Q6H PRN PRN Reason: FEVER Last Admin: 05/21/18 11:17 Dose: 650 mg Albuterol/Ipratropium (Duoneb -) 1 amp NEB RQID [facility] Last Admin: 05/22/18 11:19 Dose: 1 amp Ascorbic Acid (Vitamin C Oral Solution -) 500 mg NGT DAILY [facility] Last Admin: 05/22/18 10:28 Dose: 500 mg Bacitracin (Bacitracin -) 1 applic TP BID [facility] Last Admin: 05/22/18 10:29 Dose: 1 applic Carbamazepine (Tegretol Oral Suspension -) 200 mg NGT TID [facility] Last Admin: 05/22/18 07:13 Dose: 200 mg Collagenase (Santyl -) 1 applic TP DAILY [facility]; Protocol Last Admin: 05/21/18 10:41 Dose: 1 applic Cyanocobalamin (Vitamin B12 -) 1,000 mcg NGT DAILY [facility] Last Admin: 05/22/18 10:28 Dose: 1,000 mcg Diphenoxylate HCl/Atropine (Lomotil -) 1 combo PO Q8H PRN PRN Reason: DIARRHEA Last Admin: 05/21/18 23:41 Dose: 1 combo Ferrous Sulfate (Feosol) 300 mg NGT DAILY [facility] Last Admin: 05/22/18 10:28 Dose: 300 mg Folic Acid (Folic Acid -) 1 mg NGT DAILY [facility] Last Admin: 05/22/18 10:28 Dose: 1 mg Hydralazine HCl (Apresoline -) 50 mg NGT TID [facility] Last Admin: 05/22/18 07:12 Dose: 50 mg Vancomycin HCl 1,250 mg/ (Dextrose) 250 mls @ 250 mls/2 hr IVPB Q24H [facility]; Protocol Last Admin: 05/21/18 17:40 Dose: 250 mls/2 hr Lactobacillus Acidophilus (Bacid -) 1 tab NGT BID [facility] Last Admin: 05/22/18 10:28 Dose: 1 tab Levothyroxine Sodium (Synthroid -) 100 mcg NGT DAILY@0700 [facility] Last Admin: 05/22/18 07:12 Dose: 100 mcg Loratadine (Claritin -) 10 mg NGT DAILY [facility] Last Admin: 05/22/18 10:29 Dose: 10 mg Metoprolol Tartrate (Lopressor -) 50 mg NGT BID [facility] Last Admin: 05/22/18 10:28 Dose: 50 mg Mirtazapine (Remeron -) 7.5 mg NGT HS [facility] Last Admin: 05/21/18 23:21 Dose: 7.5 mg Nystatin/Triamcinolone Acetonide (Mycolog Ii Ointment -) 1 applic TP BID [facility] Last Admin: 05/22/18 10:29 Dose: 1 applic Pantoprazole Sodium (Protonix Iv) 40 mg IVPUSH BID [facility] Last Admin: 05/22/18 10:28 Dose: 40 mg Potassium Phos/Sodium Phos (Phos-Nak Packet -) 1 packet NGT DAILY [facility] Last Admin: 05/22/18 10:29 Dose: 1 packet Sertraline HCl (Zoloft -) 50 mg NGT DAILY [facility] Last Admin: 05/22/18 10:28 Dose: 50 mg Sodium Chloride (Sodium Chloride Tablet -) 1 gm NGT DAILY [facility] Last Admin: 05/22/18 10:28 Dose: 1 gm Vancomycin HCl (Vancomycin Oral Solution) 125 mg NGT Q6HPO [facility] Last Admin: 05/22/18 07:12 Dose: 125 mg Zinc Sulfate (Orazinc -) 220 mg NGT DAILY [facility] Last Admin: 05/22/18 10:28 Dose: 220 mg - Objective Vital Signs: Vital Signs Temperature 98.4 F 05/21/18 18:00 Pulse Rate 92 H 05/22/18 09:53 Respiratory Rate 17 05/22/18 07:00 Blood Pressure 115/70 05/22/18 05:36 O2 Sat by Pulse Oximetry (%) 96 05/22/18 09:53 Constitutional: Yes: Well Nourished, No Distress, Calm Cardiovascular: Yes: Regular Rate and Rhythm Respiratory: Yes: Mechanically Ventilated Gastrointestinal: Yes: Normal Bowel Sounds, Soft Musculoskeletal: Yes: Muscle Weakness Edema: No Peripheral Pulses WNL: Yes Neurological: Yes: Alert, Oriented Psychiatric: Yes: Alert, Oriented Labs: CBC, BMP 05/21/18 07:15 05/21/18 07:15 INR, PTT INR 1.15 (0.83-1.09) H 05/20/18 14:15 Problem List - Problems (1) Anemia Assessment/Plan: s/p prbc will continue to monitor h/h Code(s): D64.9 - ANEMIA, UNSPECIFIED (2) C. difficile diarrhea Assessment/Plan: -Vanco GT QID -Contact isolation -Seen by GI Code(s): A04.72 - ENTEROCOLITIS D/T CLOSTRIDIUM DIFFICILE, NOT SPCF RECUR (3) Electrolyte imbalance Assessment/Plan: -monitor trend Code(s): E87.8 - OTH DISORDERS OF ELECTROLYTE AND FLUID BALANCE, NEC (4) Functional 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 (5) Toxic metabolic encephalopathy Code(s): G92 - TOXIC ENCEPHALOPATHY (6) Acute on chronic respiratory failure with hypoxia and hypercapnia Assessment/Plan: -mechanical vent PRN -Pulmonary on board -bronchodilators Code(s): J96.21 - ACUTE AND CHRONIC RESPIRATORY FAILURE WITH HYPOXIA; J96.22 - ACUTE AND CHRONIC RESPIRATORY FAILURE WITH HYPERCAPNIA (7) Aspiration pneumonia Assessment/Plan: -NGT -Seen by Speech pathology -PEG placement in AM -MBS trial once stronger -referral by speech pathology to [facility] Rey for augmentative communication Code(s): J69.0 - PNEUMONITIS DUE TO INHALATION OF FOOD AND VOMIT Assessment/Plan See problem list Plan discussed with pt's mother Erinn in the room
--- NOTE | 2018-05-22 11:39 | PN ---
Progress Note (short form) - Note Progress Note: PULMONARY On trach collar, denies shortness of breath. Still c/o facial neuralgia. Vital Signs Period Temp Pulse Resp BP Sys/Morillo Pulse Ox Last 24 Hr 98.0 F-98.4 F 75-92 10 108-125/56-75 95-97 Gen: awake on trach collar Heart: RRR Lung: decreased breath sounds at the bases Abd: soft, nontender Ext: no edema CBC, BMP 05/21/18 07:15 05/21/18 07:15 Active Medications Acetaminophen (Tylenol Oral Solution -) 650 mg NGT Q6H PRN PRN Reason: FEVER Last Admin: 05/21/18 11:17 Dose: 650 mg Albuterol/Ipratropium (Duoneb -) 1 amp NEB RQID [facility] Last Admin: 05/22/18 11:19 Dose: 1 amp Ascorbic Acid (Vitamin C Oral Solution -) 500 mg NGT DAILY [facility] Last Admin: 05/22/18 10:28 Dose: 500 mg Bacitracin (Bacitracin -) 1 applic TP BID [facility] Last Admin: 05/22/18 10:29 Dose: 1 applic Carbamazepine (Tegretol Oral Suspension -) 200 mg NGT TID [facility] Last Admin: 05/22/18 07:13 Dose: 200 mg Collagenase (Santyl -) 1 applic TP DAILY [facility]; Protocol Last Admin: 05/21/18 10:41 Dose: 1 applic Cyanocobalamin (Vitamin B12 -) 1,000 mcg NGT DAILY [facility] Last Admin: 05/22/18 10:28 Dose: 1,000 mcg Diphenoxylate HCl/Atropine (Lomotil -) 1 combo PO Q8H PRN PRN Reason: DIARRHEA Last Admin: 05/21/18 23:41 Dose: 1 combo Ferrous Sulfate (Feosol) 300 mg NGT DAILY [facility] Last Admin: 05/22/18 10:28 Dose: 300 mg Folic Acid (Folic Acid -) 1 mg NGT DAILY [facility] Last Admin: 05/22/18 10:28 Dose: 1 mg Hydralazine HCl (Apresoline -) 50 mg NGT TID [facility] Last Admin: 05/22/18 07:12 Dose: 50 mg Vancomycin HCl 1,250 mg/ (Dextrose) 250 mls @ 250 mls/2 hr IVPB Q24H [facility]; Protocol Last Admin: 05/21/18 17:40 Dose: 250 mls/2 hr Lactobacillus Acidophilus (Bacid -) 1 tab NGT BID [facility] Last Admin: 05/22/18 10:28 Dose: 1 tab Levothyroxine Sodium (Synthroid -) 100 mcg NGT DAILY@0700 [facility] Last Admin: 05/22/18 07:12 Dose: 100 mcg Loratadine (Claritin -) 10 mg NGT DAILY [facility] Last Admin: 05/22/18 10:29 Dose: 10 mg Metoprolol Tartrate (Lopressor -) 50 mg NGT BID [facility] Last Admin: 05/22/18 10:28 Dose: 50 mg Mirtazapine (Remeron -) 7.5 mg NGT HS [facility] Last Admin: 05/21/18 23:21 Dose: 7.5 mg Nystatin/Triamcinolone Acetonide (Mycolog Ii Ointment -) 1 applic TP BID [facility] Last Admin: 05/22/18 10:29 Dose: 1 applic Pantoprazole Sodium (Protonix Iv) 40 mg IVPUSH BID [facility] Last Admin: 05/22/18 10:28 Dose: 40 mg Potassium Phos/Sodium Phos (Phos-Nak Packet -) 1 packet NGT DAILY [facility] Last Admin: 05/22/18 10:29 Dose: 1 packet Sertraline HCl (Zoloft -) 50 mg NGT DAILY [facility] Last Admin: 05/22/18 10:28 Dose: 50 mg Sodium Chloride (Sodium Chloride Tablet -) 1 gm NGT DAILY [facility] Last Admin: 05/22/18 10:28 Dose: 1 gm Vancomycin HCl (Vancomycin Oral Solution) 125 mg NGT Q6HPO [facility] Last Admin: 05/22/18 07:12 Dose: 125 mg Zinc Sulfate (Orazinc -) 220 mg NGT DAILY [facility] Last Admin: 05/22/18 10:28 Dose: 220 mg A/P Chronic Respiratory Failure Pneumonia likely Aspiration treated +C Diff Ag Multiple Sclerosis Functional Quadriplegia Hyponatremia resolved HTN Hypothyroidism Depression - antibiotics per ID - inhaled bronchodilators - trach collar during day, vent support at night - aspiration precautions - enteral feeds - for PEG placement - DVT/GI prophylaxis
[2018-05-22] MEDS: COLLAGENASE CLOSTRIDIUM HIST. 30 GRAMS TUBE TP SCH (12:41)
[2018-05-22] MEDS: VANCOMYCIN HCL 1,250 MG in DEXTROSE 5%-WATER - 250 ML IVPB SCH (14:16)
--- NOTE | 2018-05-22 17:33 | PN ---
Progress Note (short form) - Note Progress Note: hyponatremia resolved prerenal azotemia MS/ quadriplegia siadh pna c diff Current Medications Acetaminophen (Tylenol Oral Solution -) 650 mg NGT Q6H PRN PRN Reason: FEVER Last Admin: 05/21/18 11:17 Dose: 650 mg Albuterol/Ipratropium (Duoneb -) 1 amp NEB RQID [facility] Last Admin: 05/22/18 15:50 Dose: 1 amp Ascorbic Acid (Vitamin C Oral Solution -) 500 mg NGT DAILY [facility] Last Admin: 05/22/18 10:28 Dose: 500 mg Bacitracin (Bacitracin -) 1 applic TP BID [facility] Last Admin: 05/22/18 10:29 Dose: 1 applic Carbamazepine (Tegretol Oral Suspension -) 200 mg NGT TID [facility] Last Admin: 05/22/18 14:04 Dose: 200 mg Collagenase (Santyl -) 1 applic TP DAILY [facility]; Protocol Last Admin: 05/22/18 12:41 Dose: 1 applic Cyanocobalamin (Vitamin B12 -) 1,000 mcg NGT DAILY [facility] Last Admin: 05/22/18 10:28 Dose: 1,000 mcg Diphenoxylate HCl/Atropine (Lomotil -) 1 combo PO Q8H PRN PRN Reason: DIARRHEA Last Admin: 05/21/18 23:41 Dose: 1 combo Ferrous Sulfate (Feosol) 300 mg NGT DAILY [facility] Last Admin: 05/22/18 10:28 Dose: 300 mg Folic Acid (Folic Acid -) 1 mg NGT DAILY [facility] Last Admin: 05/22/18 10:28 Dose: 1 mg Hydralazine HCl (Apresoline -) 50 mg NGT TID [facility] Last Admin: 05/22/18 14:03 Dose: 50 mg Lactobacillus Acidophilus (Bacid -) 1 tab NGT BID [facility] Last Admin: 05/22/18 10:28 Dose: 1 tab Levothyroxine Sodium (Synthroid -) 100 mcg NGT DAILY@0700 [facility] Last Admin: 05/22/18 07:12 Dose: 100 mcg Loratadine (Claritin -) 10 mg NGT DAILY [facility] Last Admin: 05/22/18 10:29 Dose: 10 mg Metoprolol Tartrate (Lopressor -) 50 mg NGT BID [facility] Last Admin: 05/22/18 10:28 Dose: 50 mg Mirtazapine (Remeron -) 7.5 mg NGT HS [facility] Last Admin: 05/21/18 23:21 Dose: 7.5 mg Nystatin/Triamcinolone Acetonide (Mycolog Ii Ointment -) 1 applic TP BID [facility] Last Admin: 05/22/18 10:29 Dose: 1 applic Pantoprazole Sodium (Protonix Iv) 40 mg IVPUSH BID [facility] Last Admin: 05/22/18 10:28 Dose: 40 mg Potassium Phos/Sodium Phos (Phos-Nak Packet -) 1 packet NGT DAILY [facility] Last Admin: 05/22/18 10:29 Dose: 1 packet Sertraline HCl (Zoloft -) 50 mg NGT DAILY [facility] Last Admin: 05/22/18 10:28 Dose: 50 mg Sodium Chloride (Sodium Chloride Tablet -) 1 gm NGT DAILY [facility] Last Admin: 05/22/18 10:28 Dose: 1 gm Vancomycin HCl (Vancomycin Oral Solution) 125 mg NGT Q6HPO [facility] Last Admin: 05/22/18 12:41 Dose: 125 mg Zinc Sulfate (Orazinc -) 220 mg NGT DAILY [facility] Last Admin: 05/22/18 10:28 Dose: 220 mg Last Vital Signs Temp Pulse Resp BP Pulse Ox 98.1 F 59 L 22 H 131/57 L 97 05/22/18 14:42 05/22/18 14:42 05/22/18 14:42 05/22/18 14:42 05/22/18 14:21 Gen: awake Neck trach collar Heart: RRR Lung: clear Abd: soft, nontender Ext: no edema CBC, BMP 05/21/18 07:15 05/21/18 07:15 Plan- ensure hydration same rx
[2018-05-22] MEDS: MIRTAZAPINE 15 MG TABLET (FP) NGT SCH (21:18)
[2018-05-23] MEDS: hydrALAZINE HCL 50 MG TABLET (FP) NGT SCH ×3 (06:32→21:30)
[2018-05-23] MEDS: LEVOTHYROXINE NA 100 MCG TABLET (FP) NGT SCH (06:33)
[2018-05-23] MEDS: VANCOMYCIN 250 MG/5 ML ORAL SOLUTION NGT SCH ×5 (06:33→23:17)
[2018-05-23] MEDS: carBAMazepine 200 MG/10 ML UNIT-DOSE CUP NGT SCH ×3 (06:33→22:18)
[2018-05-23 07:32] LABS: BASO % 0.9 % (0-2.0); EOS % 3.5 % (0-4.5); HEMATOCRIT 27.8 % (32.4-45.2); HEMOGLOBIN 9.7 GM/dL (10.7-15.3); LYMPH % 17.3 % (8-40); MCH 32.4 pg (25.7-33.7); MCHC 34.8 g/dl (32.0-36.0); MEAN CELL VOLUME 93.1 fl (80-96); MEAN PLT VOLUME 8.8 fl (7.5-11.1); MONO % 10.5 % (3.8-10.2); NEUT % 67.8 % (42.8-82.8); PLATELET COUNT 414 K/MM3 (134-434); RBC 2.98 M/mm3 (3.60-5.2); RDW 15.6 % (11.6-15.6); WHITE BLOOD COUNT 5.6 K/mm3 (4.0-10.0)
[2018-05-23] MEDS: ALBUTEROL SO4 2.5/IPRATROPIUM 0.5 INH SOL 3 ML VIAL.NEB. NEB SCH ×3 (07:52→20:00)
[2018-05-23 07:55] LABS: ALBUMIN 2.2 g/dl (3.4-5.0); ALK PHOS 140 U/L (45-117); ANION GAP 5 MMOL/L (8-16); BILIRUBIN,TOTAL 0.4 mg/dL (0.2-1); BLOOD UREA NITROGEN 20 mg/dL (7-18); CALCIUM 8.2 mg/dL (8.5-10.1); CHLORIDE 100 mmol/L (98-107); CO2 31 mmol/L (21-32); CREATININE 0.5 mg/dL (0.55-1.3); GLUCOSE,RANDOM 89 mg/dL (74-106); POTASSIUM 4.4 mmol/L (3.5-5.1); SGOT/AST 14 U/L (15-37); SGPT/ALT 15 U/L (13-61); SODIUM 136 mmol/L (136-145); TOT PROT 7.6 g/dl (6.4-8.2)
[2018-05-23] MEDS: PANTOPRAZOLE SODIUM 40 MG VIAL IVPUSH SCH ×2 (10:07→21:31)
[2018-05-23] MEDS: COLLAGENASE CLOSTRIDIUM HIST. 30 GRAMS TUBE TP SCH (10:16)
[2018-05-23] MEDS: NYSTATIN/TRIAMCINOLONE TOPICAL OINTMENT 15 GM TUBE TP SCH ×2 (10:18→21:51)
--- NOTE | 2018-05-23 11:21 | PN ---
Progress Note (short form) - Note Progress Note: Follow Up for Multiple decubitii Selected Entries 05/23/18 05/23/18 06:00 09:58 Pulse Rate 96 H Blood Pressure 126/57 L O2 Sat by Pulse 80 L Oximetry (%) Laboratory Tests 05/23/18 05/23/18 05:30 05:30 WBC 5.6 RBC 2.98 L Hgb 9.7 L MCV 93.1 MCH 32.4 MCHC 34.8 Monocytes % 10.5 H Anion Gap 5 L BUN 20 H Creatinine 0.5 L Calcium 8.2 L Total Bilirubin 0.4 AST 14 L ALT 15 Alkaline Phosphatase 140 H Total Protein 7.6 Albumin 2.2 L Wounds topically anesthetized Wound care provided Removal of devitalized tissues General condition improved slightly Wound Status : Right Ischial has more superficial skin necrosis, wound is larger , Extends to Ischial bone, bone exposed Treatment After Topical anesthesia for several minutes Using #15 Blade Devitalized tissues removed Santyl applied Patient general condition related to Respiratory compromise prevents side to side position, wound has deteriorated for these reasons Will continue to use Santyl chemical enzematic debridement Prognosis : Poor/fair do not expect wound healing, they are on maintained chemical cleaning
[2018-05-23] MEDS ORDERED: PT OWN MED DRAWER 7, Y5N ONE ×3 (11:30→21:16)
--- NOTE | 2018-05-23 11:31 | PN ---
Progress Note (short form) - Note Progress Note: NEUROLOGY PROGRESS NOTE: Events reviewed and discussed with staff. Mother at bedside. Remains on Vanco for presumed C. difficile colitis. Pt tapered off vent and using PMV valve. Pending G-tube placement today by IR and has been NPO since last night. Reporting worsening L facial "nerve" pains due to abrupt D/C of Tegretol (as meds were on hold due to NPO status). NA 137-142 mg% GODFREY: -Lhermitte's. Perera appears clear. NGT. PMV in place. Tongue appears hydrated NEURO EXAM: Verbal. Ox3. Competent Ox [facility]. May 23, 2018. TRUMP. Improved tongue ESSENCE's. Gag still depressed Tetraplegic. Areflexic. Reduced pinch in all fours. Impression: Advanced MS Toxic-Metabolic Encephalopathy (C. Diff Colitis) Trigeminal Neuralgia Suggest: Continue Abx Maintain perera care and patency. Wound care. Continue PMV as tolerated Tegretol changed to 200 mg TID suspension, currently on hold. Resume Tegretol 100 TID suspension after GT placement Thank you very much, Rom Conroy MD
--- NOTE | 2018-05-23 11:42 | PN ---
Progress Note (short form) - Note Progress Note: More awake and alert today. PMV in place and on Trach collar for almost 2 hours. Breathing feels comfortable. Reports Trigeminal neuralgia pain. Intake & Output 05/20/18 05/21/18 05/22/18 05/23/18 23:59 23:59 23:59 23:59 Intake Total 850 907 495 4737 Output Total 187 450 0885 700 Balance 150 -100 -50 350 Last Vital Signs Temp Pulse Resp BP Pulse Ox 98.1 F 96 H 12 126/57 L 80 L 05/23/18 06:00 05/23/18 09:58 05/23/18 06:38 05/23/18 06:00 05/23/18 09:58 Active Medications Acetaminophen (Tylenol Oral Solution -) 650 mg NGT Q6H PRN PRN Reason: FEVER Last Admin: 05/21/18 11:17 Dose: 650 mg Albuterol/Ipratropium (Duoneb -) 1 amp NEB RQID [facility] Last Admin: 05/23/18 11:12 Dose: 1 amp Ascorbic Acid (Vitamin C Oral Solution -) 500 mg NGT DAILY [facility] Last Admin: 05/22/18 10:28 Dose: 500 mg Bacitracin (Bacitracin -) 1 applic TP BID [facility] Last Admin: 05/22/18 21:20 Dose: 1 applic Carbamazepine (Tegretol Oral Suspension -) 200 mg NGT TID [facility] Last Admin: 05/23/18 06:33 Dose: Not Given Collagenase (Santyl -) 1 applic TP DAILY [facility]; Protocol Last Admin: 05/22/18 12:41 Dose: 1 applic Cyanocobalamin (Vitamin B12 -) 1,000 mcg NGT DAILY [facility] Last Admin: 05/22/18 10:28 Dose: 1,000 mcg Diphenoxylate HCl/Atropine (Lomotil -) 1 combo PO Q8H PRN PRN Reason: DIARRHEA Last Admin: 05/21/18 23:41 Dose: 1 combo Ferrous Sulfate (Feosol) 300 mg NGT DAILY [facility] Last Admin: 05/22/18 10:28 Dose: 300 mg Folic Acid (Folic Acid -) 1 mg NGT DAILY [facility] Last Admin: 05/22/18 10:28 Dose: 1 mg Hydralazine HCl (Apresoline -) 50 mg NGT TID [facility] Last Admin: 05/23/18 06:32 Dose: Not Given Lactobacillus Acidophilus (Bacid -) 1 tab NGT BID [facility] Last Admin: 05/22/18 21:16 Dose: 1 tab Levothyroxine Sodium (Synthroid -) 100 mcg NGT DAILY@0700 [facility] Last Admin: 05/23/18 06:33 Dose: Not Given Loratadine (Claritin -) 10 mg NGT DAILY [facility] Last Admin: 05/22/18 10:29 Dose: 10 mg Metoprolol Tartrate (Lopressor -) 50 mg NGT BID [facility] Last Admin: 05/22/18 21:16 Dose: 50 mg Mirtazapine (Remeron -) 7.5 mg NGT HS [facility] Last Admin: 05/22/18 21:18 Dose: 7.5 mg Nystatin/Triamcinolone Acetonide (Mycolog Ii Ointment -) 1 applic TP BID [facility] Last Admin: 05/22/18 21:20 Dose: 1 applic Pantoprazole Sodium (Protonix Iv) 40 mg IVPUSH BID [facility] Last Admin: 05/22/18 21:18 Dose: 40 mg Potassium Phos/Sodium Phos (Phos-Nak Packet -) 1 packet NGT DAILY [facility] Last Admin: 05/22/18 10:29 Dose: 1 packet Sertraline HCl (Zoloft -) 50 mg NGT DAILY [facility] Last Admin: 05/22/18 10:28 Dose: 50 mg Sodium Chloride (Sodium Chloride Tablet -) 1 gm NGT DAILY [facility] Last Admin: 05/22/18 10:28 Dose: 1 gm Vancomycin HCl (Vancomycin Oral Solution) 125 mg NGT Q6HPO [facility] Last Admin: 05/23/18 06:33 Dose: Not Given Zinc Sulfate (Orazinc -) 220 mg NGT DAILY [facility] Last Admin: 05/22/18 10:28 Dose: 220 mg GENERAL: Vented, awake and responsive HEAD: Normal with no signs of trauma. EYES: Pupils equal, round and reactive to light, sclera anicteric, conjunctiva clear. ENT: Dry mucous membranes with oral thrush NECK: (-) JVD, (+) Trach intact LUNGS: Bilateral scattered rhonchi. Mechanically ventilated HEART: Regular rate and rhythm, normal S1 and S2 without murmur, rub or gallop. ABDOMEN: Soft, nontender, not distended, normoactive bowel sounds, no guarding, no rebound, no masses. MUSCULOSKELETAL: No CVA tenderness. EXTREMITIES: 2+ pulses, warm, well-perfused. No calf tenderness. Trace pitting edema NEUROLOGICAL: paraplegic SKIN: (+) Stage III sacral ulcer, with multiple pressure injuries in the sacral and coccyx area. Laboratory Results - last 24 hr 05/23/18 05/23/18 05:30 05:30 WBC 5.6 RBC 2.98 L Hgb 9.7 L Hct 27.8 L MCV 93.1 MCH 32.4 MCHC 34.8 RDW 15.6 Plt Count 414 MPV 8.8 Absolute Neuts (auto) 3.8 Neutrophils % 67.8 Lymphocytes % 17.3 Monocytes % 10.5 H Eosinophils % 3.5 Basophils % 0.9 Nucleated RBC % 0 Sodium 136 Potassium 4.4 Chloride 100 Carbon Dioxide 31 Anion Gap 5 L BUN 20 H Creatinine 0.5 L Creat Clearance w eGFR 128.57 Random Glucose 89 Calcium 8.2 L Total Bilirubin 0.4 AST 14 L ALT 15 Alkaline Phosphatase 140 H Total Protein 7.6 Albumin 2.2 L ASSESSMENT/PLAN: Suspected aspiration pneumonitis AMS due to Severe Hyponatremia Toxic Metabolic Encephalopathy Functional Quadriplegia Multiple Sclerosis Trigeminal Neuralgia Acute on chronic respiratory failure HTN Hypothyroidism Depression Anxiety For GT by IR today Enteral feeds as tolerated PMV use as tolerated Baclofen pump BD TX ABX per ID Aspiration precautions VTE prophylaxis Dr Fox
--- NOTE | 2018-05-23 15:06 | PN ---
Progress Note, Physician Chief Complaint: Hyponatremia AMS C-diff History of Present Illness: Previous notes and events reviewed awake and alert NAD patient is NPO for GT placement with IR mechanical ventilation via trach collar - Current Medication List Current Medications: Active Medications Acetaminophen (Tylenol Oral Solution -) 650 mg NGT Q6H PRN PRN Reason: FEVER Last Admin: 05/21/18 11:17 Dose: 650 mg Albuterol/Ipratropium (Duoneb -) 1 amp NEB RQID [facility] Last Admin: 05/23/18 11:12 Dose: 1 amp Ascorbic Acid (Vitamin C Oral Solution -) 500 mg NGT DAILY [facility] Last Admin: 05/22/18 10:28 Dose: 500 mg Bacitracin (Bacitracin -) 1 applic TP BID [facility] Last Admin: 05/22/18 21:20 Dose: 1 applic Carbamazepine (Tegretol Oral Suspension -) 200 mg NGT TID [facility] Last Admin: 05/23/18 06:33 Dose: Not Given Collagenase (Santyl -) 1 applic TP DAILY [facility]; Protocol Last Admin: 05/22/18 12:41 Dose: 1 applic Cyanocobalamin (Vitamin B12 -) 1,000 mcg NGT DAILY [facility] Last Admin: 05/22/18 10:28 Dose: 1,000 mcg Diphenoxylate HCl/Atropine (Lomotil -) 1 combo PO Q8H PRN PRN Reason: DIARRHEA Last Admin: 05/21/18 23:41 Dose: 1 combo Ferrous Sulfate (Feosol) 300 mg NGT DAILY [facility] Last Admin: 05/22/18 10:28 Dose: 300 mg Folic Acid (Folic Acid -) 1 mg NGT DAILY [facility] Last Admin: 05/22/18 10:28 Dose: 1 mg Hydralazine HCl (Apresoline -) 50 mg NGT TID [facility] Last Admin: 05/23/18 06:32 Dose: Not Given Lactobacillus Acidophilus (Bacid -) 1 tab NGT BID [facility] Last Admin: 05/22/18 21:16 Dose: 1 tab Levothyroxine Sodium (Synthroid -) 100 mcg NGT DAILY@0700 [facility] Last Admin: 05/23/18 06:33 Dose: Not Given Loratadine (Claritin -) 10 mg NGT DAILY [facility] Last Admin: 05/22/18 10:29 Dose: 10 mg Metoprolol Tartrate (Lopressor -) 50 mg NGT BID [facility] Last Admin: 05/22/18 21:16 Dose: 50 mg Mirtazapine (Remeron -) 7.5 mg NGT HS [facility] Last Admin: 05/22/18 21:18 Dose: 7.5 mg Nystatin/Triamcinolone Acetonide (Mycolog Ii Ointment -) 1 applic TP BID [facility] Last Admin: 05/22/18 21:20 Dose: 1 applic Pantoprazole Sodium (Protonix Iv) 40 mg IVPUSH BID [facility] Last Admin: 05/22/18 21:18 Dose: 40 mg Potassium Phos/Sodium Phos (Phos-Nak Packet -) 1 packet NGT DAILY [facility] Last Admin: 05/22/18 10:29 Dose: 1 packet Sertraline HCl (Zoloft -) 50 mg NGT DAILY [facility] Last Admin: 05/22/18 10:28 Dose: 50 mg Sodium Chloride (Sodium Chloride Tablet -) 1 gm NGT DAILY [facility] Last Admin: 05/22/18 10:28 Dose: 1 gm Vancomycin HCl (Vancomycin Oral Solution) 125 mg NGT Q6HPO [facility] Last Admin: 05/23/18 06:33 Dose: Not Given Zinc Sulfate (Orazinc -) 220 mg NGT DAILY [facility] Last Admin: 05/22/18 10:28 Dose: 220 mg - Objective Vital Signs: Vital Signs Temperature 97.9 F 05/23/18 14:38 Pulse Rate 85 05/23/18 14:38 Respiratory Rate 18 05/23/18 14:38 Blood Pressure 127/73 05/23/18 14:38 O2 Sat by Pulse Oximetry (%) 97 05/23/18 13:59 Constitutional: Yes: No Distress, Calm Eyes: Yes: Conjunctiva Clear HENT: Yes: Atraumatic Neck: Yes: Other (trach) Cardiovascular: Yes: Regular Rate and Rhythm Respiratory: Yes: CTA Bilaterally, Mechanically Ventilated Gastrointestinal: Yes: Normal Bowel Sounds, Soft, Other (non tender) Genitourinary: Yes: Raza Present Musculoskeletal: Yes: Muscle Weakness Edema: No Neurological: Yes: Alert, Oriented Psychiatric: Yes: Alert, Oriented Labs: CBC, BMP 05/23/18 05:30 05/23/18 05:30 INR, PTT INR 1.15 (0.83-1.09) H 05/20/18 14:15 Microbiology 05/14/18 12:00 Stool Clostridioides difficile Antigen - Final 05/14/18 12:00 Stool Clostridioides difficile Toxin Assay - Final 05/08/18 17:00 Blood - Peripheral Venous Blood Culture - Final NO GROWTH AFTER 5 DAYS INCUBATION 05/08/18 17:00 Blood - Peripheral Venous Blood Culture - Final NO GROWTH AFTER 5 DAYS INCUBATION 05/06/18 11:20 Blood - Peripheral Venous Blood Culture - Final NO GROWTH AFTER 5 DAYS INCUBATION 05/06/18 11:38 Blood - Peripheral Venous Blood Culture - Final NO GROWTH AFTER 5 DAYS INCUBATION 05/06/18 18:30 Sputum - Endotrachea Suction/Ventilator Gram Stain - Final 05/06/18 18:30 Sputum - Endotrachea Suction/Ventilator Sputum Culture - Final Pseudomonas Aeruginosa Serratia Marcescens Mr S Aureus 05/08/18 19:00 Urine - Urine Raza Legionella Antigen - Final 05/08/18 19:00 Urine - Urine Raza Streptococcus pneumoniae Antigen (M - Final 05/03/18 17:40 Blood - Peripheral Venous Blood Culture - Final NO GROWTH AFTER 5 DAYS INCUBATION 05/03/18 17:40 Blood - Peripheral Venous Blood Culture - Final NO GROWTH AFTER 5 DAYS INCUBATION 05/06/18 14:30 Urine - Urine Raza Urine Culture - Final Contaminated: Please Repeat 05/03/18 17:40 Urine - Urine Clean Catch Urine Culture - Final Contaminated: Please Repeat Problem List - Problems (1) Abnormal LFTs Assessment/Plan: -monitor LFTs -LFTs showing downtrend with Alk phos 140, AST 14, ALT nl Code(s): R94.5 - ABNORMAL RESULTS OF LIVER FUNCTION STUDIES (2) Anemia Assessment/Plan: -monitor Hg daily -transfuse for Hg <8.0 -current Hg 9.7 Code(s): D64.9 - ANEMIA, UNSPECIFIED (3) C. difficile diarrhea Assessment/Plan: -contact precaution -continue with vancomycin qid -positve c-diff antigen Code(s): A04.72 - ENTEROCOLITIS D/T CLOSTRIDIUM DIFFICILE, NOT SPCF RECUR (4) Functional quadriplegia secondary to MS Assessment/Plan: -turn and position q2h -FC -dvt ppx Code(s): G35 - MULTIPLE SCLEROSIS; R53.2 - FUNCTIONAL QUADRIPLEGIA (5) Hypothyroid Assessment/Plan: -continue with levothyroxine Code(s): E03.9 - HYPOTHYROIDISM, UNSPECIFIED (6) Hyperkalemia Assessment/Plan: -resolved -current K 4.4 Code(s): E87.5 - HYPERKALEMIA (7) Hyponatremia Assessment/Plan: -resolved -current Na 136 Code(s): E87.1 - HYPO-OSMOLALITY AND HYPONATREMIA (8) Pneumonia Assessment/Plan: -CXR shows right base atelectasis and/or infiltrate -pulm on board -maintain SpO2 >90% -duoneb tx PRN for SOB Code(s): J18.9 - PNEUMONIA, UNSPECIFIED ORGANISM Qualifiers: Pneumonia type: pneumonia due to methicillin-resistant Staphylococcus aureus (MRSA) (9) HTN (hypertension) Assessment/Plan: -continue with hydralazine and metoprolol -hold BP meds if SBP <110 and/or DBP <70 Code(s): I10 - ESSENTIAL (PRIMARY) HYPERTENSION (10) Hx of multiple sclerosis Assessment/Plan: -ventilator dependent -patient is scheduled for GT placement today -neurology on board -[employer] OFFICER on board -on discharge outpatient augmentive communication therapy at [facility] Code(s): Z86.69 - PERSONAL HISTORY OF DIS OF THE NERVOUS SYS AND SENSE ORGANS Assessment/Plan see problem list dvt ppx
[2018-05-23] MEDS: FERROUS SO4 300 MG/5 ML ORAL SOLN UNIT DOSE CUPS NGT SCH (18:01)
[2018-05-23] MEDS: NAPH,MB-DB/K PH,MBDB POWDER PACKET NGT SCH (18:01)
[2018-05-23] MEDS: SODIUM CHLORIDE 1 GM TABLET NGT SCH (18:02)
[2018-05-23] MEDS: ZINC SULFATE 220 MG CAPSULE (FP) NGT SCH (18:02)
[2018-05-23] MEDS: CYANOCOBALAMIN 1,000 MCG TABLET (FP) NGT SCH (18:02)
[2018-05-23] MEDS: SERTRALINE HCL 50 MG TABLET (FP) NGT SCH (18:02)
[2018-05-23] MEDS: FOLIC ACID 1 MG TABLET (FP) NGT SCH (18:02)
[2018-05-23] MEDS: LORATADINE 10 MG TABLET NGT SCH (18:02)
[2018-05-23] MEDS: MULTIVIT-MINERALS ORAL LIQUID NGT SCH (18:05)
[2018-05-23] MEDS: ASCORBIC ACID 500 MG/5 ML UNIT DOSE CUP NGT SCH (18:05)
[2018-05-23] MEDS: LACTOBACILLUS ACIDOPHILUS 1 TABLET NGT SCH ×2 (18:07→21:30)
[2018-05-23] MEDS: METOPROLOL TARTRATE 50 MG TABLET (FP) NGT SCH ×2 (18:07→21:30)
[2018-05-23] MEDS: BACITRACIN 15 GM TUBE TOPICAL OINTMENT TP SCH ×2 (18:07→22:21)
[2018-05-23] MEDS: ACETAMINOPHEN 650 MG/20.3 ML ORAL SOLUTION (CUPS) NGT PRN (18:08)
[2018-05-23] MEDS: MIRTAZAPINE 15 MG TABLET (FP) NGT SCH (21:31)
[2018-05-24] MEDS: carBAMazepine 200 MG/10 ML UNIT-DOSE CUP NGT SCH ×3 (06:52→21:34)
[2018-05-24] MEDS: hydrALAZINE HCL 50 MG TABLET (FP) NGT SCH ×3 (06:52→21:32)
[2018-05-24] MEDS: VANCOMYCIN 250 MG/5 ML ORAL SOLUTION NGT SCH ×3 (06:52→18:20)
[2018-05-24] MEDS: LEVOTHYROXINE NA 100 MCG TABLET (FP) NGT SCH (06:52)
[2018-05-24 07:21] LABS: BASO % 0.8 % (0-2.0); EOS % 3.5 % (0-4.5); HEMATOCRIT 27.6 % (32.4-45.2); HEMOGLOBIN 9.3 GM/dL (10.7-15.3); LYMPH % 16.5 % (8-40); MCH 31.4 pg (25.7-33.7); MCHC 33.7 g/dl (32.0-36.0); MEAN CELL VOLUME 93.3 fl (80-96); MEAN PLT VOLUME 8.9 fl (7.5-11.1); MONO % 8.3 % (3.8-10.2); NEUT % 70.9 % (42.8-82.8); PLATELET COUNT 423 K/MM3 (134-434); RBC 2.95 M/mm3 (3.60-5.2); RDW 15.3 % (11.6-15.6); WHITE BLOOD COUNT 5.5 K/mm3 (4.0-10.0)
[2018-05-24 07:37] LABS: ALBUMIN 2.2 g/dl (3.4-5.0); ALK PHOS 139 U/L (45-117); ANION GAP 8 MMOL/L (8-16); BILIRUBIN,TOTAL 0.4 mg/dL (0.2-1); BLOOD UREA NITROGEN 18 mg/dL (7-18); CALCIUM 8.5 mg/dL (8.5-10.1); CHLORIDE 101 mmol/L (98-107); CO2 27 mmol/L (21-32); CREATININE 0.5 mg/dL (0.55-1.3); GLUCOSE,RANDOM 73 mg/dL (74-106); POTASSIUM 4.2 mmol/L (3.5-5.1); SGOT/AST 12 U/L (15-37); SGPT/ALT 14 U/L (13-61); SODIUM 136 mmol/L (136-145); TOT PROT 7.6 g/dl (6.4-8.2)
[2018-05-24] MEDS: ALBUTEROL SO4 2.5/IPRATROPIUM 0.5 INH SOL 3 ML VIAL.NEB. NEB SCH ×4 (08:49→20:45)
--- NOTE | 2018-05-24 09:33 | PN ---
Progress Note, Physician - Current Medication List Current Medications: Active Medications Acetaminophen (Tylenol Oral Solution -) 650 mg NGT Q6H PRN PRN Reason: FEVER Last Admin: 05/23/18 18:08 Dose: 650 mg Albuterol/Ipratropium (Duoneb -) 1 amp NEB RQID [facility] Last Admin: 05/24/18 08:49 Dose: 1 amp Ascorbic Acid (Vitamin C Oral Solution -) 500 mg NGT DAILY [facility] Last Admin: 05/23/18 18:05 Dose: 500 mg Bacitracin (Bacitracin -) 1 applic TP BID [facility] Last Admin: 05/23/18 22:21 Dose: 1 applic Carbamazepine (Tegretol Oral Suspension -) 100 mg NGT TID [facility] Last Admin: 05/24/18 06:52 Dose: 100 mg Collagenase (Santyl -) 1 applic TP DAILY [facility]; Protocol Last Admin: 05/23/18 10:16 Dose: 1 applic Cyanocobalamin (Vitamin B12 -) 1,000 mcg NGT DAILY [facility] Last Admin: 05/23/18 18:02 Dose: 1,000 mcg Diphenoxylate HCl/Atropine (Lomotil -) 1 combo PO Q8H PRN PRN Reason: DIARRHEA Last Admin: 05/21/18 23:41 Dose: 1 combo Ferrous Sulfate (Feosol) 300 mg NGT DAILY [facility] Last Admin: 05/23/18 18:01 Dose: 300 mg Folic Acid (Folic Acid -) 1 mg NGT DAILY [facility] Last Admin: 05/23/18 18:02 Dose: 1 mg Hydralazine HCl (Apresoline -) 50 mg NGT TID [facility] Last Admin: 05/24/18 06:52 Dose: 50 mg Lactobacillus Acidophilus (Bacid -) 1 tab NGT BID [facility] Last Admin: 05/23/18 21:30 Dose: 1 tab Levothyroxine Sodium (Synthroid -) 100 mcg NGT DAILY@0700 [facility] Last Admin: 05/24/18 06:52 Dose: 100 mcg Loratadine (Claritin -) 10 mg NGT DAILY [facility] Last Admin: 05/23/18 18:02 Dose: 10 mg Metoprolol Tartrate (Lopressor -) 50 mg NGT BID [facility] Last Admin: 05/23/18 21:30 Dose: 50 mg Mirtazapine (Remeron -) 7.5 mg NGT HS [facility] Last Admin: 05/23/18 21:31 Dose: 7.5 mg Nystatin/Triamcinolone Acetonide (Mycolog Ii Ointment -) 1 applic TP BID [facility] Last Admin: 05/23/18 21:51 Dose: 1 applic Pantoprazole Sodium (Protonix Iv) 40 mg IVPUSH BID [facility] Last Admin: 05/23/18 21:31 Dose: 40 mg Potassium Phos/Sodium Phos (Phos-Nak Packet -) 1 packet NGT DAILY [facility] Last Admin: 05/23/18 18:01 Dose: 1 packet Sertraline HCl (Zoloft -) 50 mg NGT DAILY [facility] Last Admin: 05/23/18 18:02 Dose: 50 mg Sodium Chloride (Sodium Chloride Tablet -) 1 gm NGT DAILY [facility] Last Admin: 05/23/18 18:02 Dose: 1 gm Vancomycin HCl (Vancomycin Oral Solution) 125 mg NGT Q6HPO [facility] Last Admin: 05/24/18 06:52 Dose: 125 mg Zinc Sulfate (Orazinc -) 220 mg NGT DAILY [facility] Last Admin: 05/23/18 18:02 Dose: 220 mg - Objective Vital Signs: Vital Signs Temperature 97.9 F 05/24/18 02:00 Pulse Rate 92 H 05/24/18 08:48 Respiratory Rate 21 H 05/24/18 08:49 Blood Pressure 103/58 L 05/24/18 02:00 O2 Sat by Pulse Oximetry (%) 97 05/24/18 08:48 Cardiovascular: Yes: S1, S2 Respiratory: Yes: Mechanically Ventilated, Rhonchi Gastrointestinal: Yes: Normal Bowel Sounds, Soft Labs: CBC, BMP 05/24/18 06:05 05/24/18 06:05 INR, PTT INR 1.15 (0.83-1.09) H 05/20/18 14:15 Problem List - Problems (1) Hyponatremia Code(s): E87.1 - HYPO-OSMOLALITY AND HYPONATREMIA (2) Anemia Code(s): D64.9 - ANEMIA, UNSPECIFIED Qualifiers: Other causes of anemia: other cause, not classified (3) Chronic respiratory failure Code(s): J96.10 - CHRONIC RESPIRATORY FAILURE, UNSP W HYPOXIA OR HYPERCAPNIA (4) Functional quadriplegia Code(s): R53.2 - FUNCTIONAL QUADRIPLEGIA (5) Hypothyroid Code(s): E03.9 - HYPOTHYROIDISM, UNSPECIFIED (6) Multiple sclerosis Code(s): G35 - MULTIPLE SCLEROSIS (7) Decubital ulcer Code(s): L89.90 - PRESSURE ULCER OF UNSPECIFIED SITE, UNSPECIFIED STAGE Qualifiers: Pressure injury location: unspecified location Pressure injury stage: unspecified pressure injury stage Qualified Code(s): L89.90 - Pressure ulcer of unspecified site, unspecified stage (8) Abnormal LFTs Code(s): R94.5 - ABNORMAL RESULTS OF LIVER FUNCTION STUDIES Assessment/Plan - Problems (1) Abnormal LFTs Assessment/Plan: -monitor LFTs -LFTs showing downtrend with Alk phos 140, AST 14, ALT nl Code(s): R94.5 - ABNORMAL RESULTS OF LIVER FUNCTION STUDIES (2) Anemia Assessment/Plan: -monitor Hg daily -transfuse for Hg <8.0 -current Hg 9.7 Code(s): D64.9 - ANEMIA, UNSPECIFIED (3) C. difficile diarrhea Assessment/Plan: -contact precaution -continue with vancomycin qid -positve c-diff antigen Code(s): A04.72 - ENTEROCOLITIS D/T CLOSTRIDIUM DIFFICILE, NOT SPCF RECUR (4) Functional quadriplegia secondary to MS Assessment/Plan: -turn and position q2h -FC -dvt ppx Code(s): G35 - MULTIPLE SCLEROSIS; R53.2 - FUNCTIONAL QUADRIPLEGIA (5) Hypothyroid Assessment/Plan: -continue with levothyroxine Code(s): E03.9 - HYPOTHYROIDISM, UNSPECIFIED (6) Dysphagia Assessment/Plan: -For PEG (7) Hyponatremia Assessment/Plan: -resolved -current Na 136 Code(s): E87.1 - HYPO-OSMOLALITY AND HYPONATREMIA (8) Pneumonia Assessment/Plan: -CXR shows right base atelectasis and/or infiltrate -pulm on board -maintain SpO2 >90% -duoneb tx PRN for SOB Code(s): J18.9 - PNEUMONIA, UNSPECIFIED ORGANISM Qualifiers: Pneumonia type: pneumonia due to methicillin-resistant Staphylococcus aureus (MRSA) (9) HTN (hypertension) Assessment/Plan: -continue with hydralazine and metoprolol -hold BP meds if SBP <110 and/or DBP <70 Code(s): I10 - ESSENTIAL (PRIMARY) HYPERTENSION (10) Hx of multiple sclerosis Assessment/Plan: -ventilator dependent -patient is scheduled for GT placement today -neurology on board -PAPER INSERTER on board -on discharge outpatient augmentive communication therapy at [facility] Code(s): Z86.69 - PERSONAL HISTORY OF DIS OF THE NERVOUS SYS AND SENSE ORGANS
[2018-05-24] MEDS ORDERED: GlUCAGON HUMAN RECOMBINANT 1 MG/VIAL IJ ONE (10:00)
[2018-05-24] MEDS: COLLAGENASE CLOSTRIDIUM HIST. 30 GRAMS TUBE TP SCH (10:30)
[2018-05-24] MEDS ORDERED: MIDAZOLAM HCL 2 MG/2 ML SINGLE DOSE VIAL IVPUSH ONE (11:00)
--- NOTE | 2018-05-24 11:48 | PN ---
Progress Note (short form) - Note Progress Note: Awake and alert on AC Mode of vent. Just back from IR for a GT placement. Reports some discomfort. Intake & Output 05/21/18 05/22/18 05/23/18 05/24/18 23:59 23:59 23:59 23:59 Intake Total 601 985 1253 Output Total 800 1000 1775 300 Balance -100 -50 -725 -300 Last Vital Signs Temp Pulse Resp BP Pulse Ox 97.4 F L 81 18 140/84 97 05/24/18 09:46 05/24/18 10:59 05/24/18 10:59 05/24/18 10:59 05/24/18 10:59 Active Medications Acetaminophen (Tylenol Oral Solution -) 650 mg NGT Q6H PRN PRN Reason: FEVER Last Admin: 05/23/18 18:08 Dose: 650 mg Albuterol/Ipratropium (Duoneb -) 1 amp NEB RQID [facility] Last Admin: 05/24/18 08:49 Dose: 1 amp Ascorbic Acid (Vitamin C Oral Solution -) 500 mg NGT DAILY [facility] Last Admin: 05/23/18 18:05 Dose: 500 mg Bacitracin (Bacitracin -) 1 applic TP BID [facility] Last Admin: 05/23/18 22:21 Dose: 1 applic Carbamazepine (Tegretol Oral Suspension -) 100 mg NGT TID [facility] Last Admin: 05/24/18 06:52 Dose: 100 mg Collagenase (Santyl -) 1 applic TP DAILY [facility]; Protocol Last Admin: 05/23/18 10:16 Dose: 1 applic Cyanocobalamin (Vitamin B12 -) 1,000 mcg NGT DAILY [facility] Last Admin: 05/23/18 18:02 Dose: 1,000 mcg Diphenoxylate HCl/Atropine (Lomotil -) 1 combo PO Q8H PRN PRN Reason: DIARRHEA Last Admin: 05/21/18 23:41 Dose: 1 combo Ferrous Sulfate (Feosol) 300 mg NGT DAILY [facility] Last Admin: 05/23/18 18:01 Dose: 300 mg Folic Acid (Folic Acid -) 1 mg NGT DAILY [facility] Last Admin: 05/23/18 18:02 Dose: 1 mg Hydralazine HCl (Apresoline -) 50 mg NGT TID [facility] Last Admin: 05/24/18 06:52 Dose: 50 mg Lactobacillus Acidophilus (Bacid -) 1 tab NGT BID [facility] Last Admin: 05/23/18 21:30 Dose: 1 tab Levothyroxine Sodium (Synthroid -) 100 mcg NGT DAILY@0700 [facility] Last Admin: 05/24/18 06:52 Dose: 100 mcg Loratadine (Claritin -) 10 mg NGT DAILY [facility] Last Admin: 05/23/18 18:02 Dose: 10 mg Metoprolol Tartrate (Lopressor -) 50 mg NGT BID [facility] Last Admin: 05/23/18 21:30 Dose: 50 mg Mirtazapine (Remeron -) 7.5 mg NGT HS [facility] Last Admin: 05/23/18 21:31 Dose: 7.5 mg Nystatin/Triamcinolone Acetonide (Mycolog Ii Ointment -) 1 applic TP BID [facility] Last Admin: 05/23/18 21:51 Dose: 1 applic Pantoprazole Sodium (Protonix Iv) 40 mg IVPUSH BID [facility] Last Admin: 05/23/18 21:31 Dose: 40 mg Potassium Phos/Sodium Phos (Phos-Nak Packet -) 1 packet NGT DAILY [facility] Last Admin: 05/23/18 18:01 Dose: 1 packet Sertraline HCl (Zoloft -) 50 mg NGT DAILY [facility] Last Admin: 05/23/18 18:02 Dose: 50 mg Sodium Chloride (Sodium Chloride Tablet -) 1 gm NGT DAILY [facility] Last Admin: 05/23/18 18:02 Dose: 1 gm Vancomycin HCl (Vancomycin Oral Solution) 125 mg NGT Q6HPO [facility] Last Admin: 05/24/18 06:52 Dose: 125 mg Zinc Sulfate (Orazinc -) 220 mg NGT DAILY [facility] Last Admin: 05/23/18 18:02 Dose: 220 mg GENERAL: Vented, awake and responsive HEAD: Normal with no signs of trauma. EYES: Pupils equal, round and reactive to light, sclera anicteric, conjunctiva clear. ENT: Dry mucous membranes with oral thrush NECK: (-) JVD, (+) Trach intact LUNGS: Bilateral scattered rhonchi. Mechanically ventilated HEART: Regular rate and rhythm, normal S1 and S2 without murmur, rub or gallop. ABDOMEN: Soft, nontender, not distended, normoactive bowel sounds, (+) GT MUSCULOSKELETAL: No CVA tenderness. EXTREMITIES: 2+ pulses, warm, well-perfused. No calf tenderness. Trace pitting edema NEUROLOGICAL: paraplegic SKIN: (+) Stage III sacral ulcer, with multiple pressure injuries in the sacral and coccyx area. Laboratory Results - last 24 hr 05/24/18 05/24/18 06:05 06:05 WBC 5.5 RBC 2.95 L Hgb 9.3 L Hct 27.6 L MCV 93.3 MCH 31.4 MCHC 33.7 RDW 15.3 Plt Count 423 MPV 8.9 Absolute Neuts (auto) 3.9 Neutrophils % 70.9 Lymphocytes % 16.5 Monocytes % 8.3 Eosinophils % 3.5 Basophils % 0.8 Nucleated RBC % 0 Sodium 136 Potassium 4.2 Chloride 101 Carbon Dioxide 27 Anion Gap 8 BUN 18 Creatinine 0.5 L Creat Clearance w eGFR 128.57 Random Glucose 73 L Calcium 8.5 Total Bilirubin 0.4 AST 12 L ALT 14 Alkaline Phosphatase 139 H Total Protein 7.6 Albumin 2.2 L ASSESSMENT/PLAN: Suspected aspiration pneumonitis AMS due to Severe Hyponatremia Toxic Metabolic Encephalopathy Functional Quadriplegia Multiple Sclerosis Trigeminal Neuralgia Acute on chronic respiratory failure HTN Hypothyroidism Depression Anxiety Enteral feeds as tolerated PMV use as tolerated Baclofen pump BD TX ABX per ID Aspiration precautions VTE prophylaxis D/C planning Dr Fox
[2018-05-24] MEDS ORDERED: PT OWN MED DRAWER 7, Y5N ONE ×3 (14:03→21:25)
[2018-05-24] MEDS: PANTOPRAZOLE SODIUM 40 MG VIAL IVPUSH SCH ×2 (14:11→21:35)
[2018-05-24] MEDS: LACTOBACILLUS ACIDOPHILUS 1 TABLET NGT SCH ×2 (14:11→21:32)
[2018-05-24] MEDS: FERROUS SO4 300 MG/5 ML ORAL SOLN UNIT DOSE CUPS NGT SCH (14:11)
[2018-05-24] MEDS: CYANOCOBALAMIN 1,000 MCG TABLET (FP) NGT SCH (14:12)
[2018-05-24] MEDS: LORATADINE 10 MG TABLET NGT SCH (14:12)
[2018-05-24] MEDS: FOLIC ACID 1 MG TABLET (FP) NGT SCH (14:12)
[2018-05-24] MEDS: SERTRALINE HCL 50 MG TABLET (FP) NGT SCH (14:12)
[2018-05-24] MEDS: ASCORBIC ACID 500 MG/5 ML UNIT DOSE CUP NGT SCH (14:13)
[2018-05-24] MEDS: SODIUM CHLORIDE 1 GM TABLET NGT SCH (14:13)
[2018-05-24] MEDS: NAPH,MB-DB/K PH,MBDB POWDER PACKET NGT SCH (14:13)
[2018-05-24] MEDS: MULTIVIT-MINERALS ORAL LIQUID NGT SCH (14:13)
[2018-05-24] MEDS: BACITRACIN 15 GM TUBE TOPICAL OINTMENT TP SCH ×2 (14:14→22:19)
[2018-05-24] MEDS: ZINC SULFATE 220 MG CAPSULE (FP) NGT SCH (14:14)
[2018-05-24] MEDS: METOPROLOL TARTRATE 50 MG TABLET (FP) NGT SCH ×2 (14:14→21:36)
--- NOTE | 2018-05-24 15:31 | PN ---
Progress Note (short form) - Note Progress Note: Renal follow up for Hyponatremia Pt seen and examined at the bedside on vent awake and alert feels well had G-tube placement this am Vital Signs Temperature 97.4 F L 05/24/18 09:46 Pulse Rate 84 05/24/18 14:23 Respiratory Rate 18 05/24/18 12:50 Blood Pressure 140/84 05/24/18 10:59 O2 Sat by Pulse Oximetry (%) 98 05/24/18 14:23 Intake & Output 05/21/18 05/22/18 05/23/18 05/24/18 23:59 23:59 23:59 23:59 Intake Total 886 558 7616 Output Total 800 1000 1775 300 Balance -100 -50 -725 -300 NAD on vent via trach No edema in LE CBC, BMP 05/24/18 06:05 05/24/18 06:05 Current Medications Acetaminophen (Tylenol Oral Solution -) 650 mg NGT Q6H PRN PRN Reason: FEVER Last Admin: 05/23/18 18:08 Dose: 650 mg Albuterol/Ipratropium (Duoneb -) 1 amp NEB RQID [facility] Last Admin: 05/24/18 12:50 Dose: 1 amp Ascorbic Acid (Vitamin C Oral Solution -) 500 mg NGT DAILY [facility] Last Admin: 05/24/18 14:13 Dose: 500 mg Bacitracin (Bacitracin -) 1 applic TP BID [facility] Last Admin: 05/24/18 14:14 Dose: 1 applic Carbamazepine (Tegretol Oral Suspension -) 100 mg NGT TID [facility] Last Admin: 05/24/18 14:15 Dose: 100 mg Collagenase (Santyl -) 1 applic TP DAILY [facility]; Protocol Last Admin: 05/24/18 10:30 Dose: 1 applic Cyanocobalamin (Vitamin B12 -) 1,000 mcg NGT DAILY [facility] Last Admin: 05/24/18 14:12 Dose: 1,000 mcg Diphenoxylate HCl/Atropine (Lomotil -) 1 combo PO Q8H PRN PRN Reason: DIARRHEA Last Admin: 05/21/18 23:41 Dose: 1 combo Ferrous Sulfate (Feosol) 300 mg NGT DAILY [facility] Last Admin: 05/24/18 14:11 Dose: 300 mg Folic Acid (Folic Acid -) 1 mg NGT DAILY [facility] Last Admin: 05/24/18 14:12 Dose: 1 mg Hydralazine HCl (Apresoline -) 50 mg NGT TID [facility] Last Admin: 05/24/18 14:11 Dose: 50 mg Lactobacillus Acidophilus (Bacid -) 1 tab NGT BID [facility] Last Admin: 05/24/18 14:11 Dose: 1 tab Levothyroxine Sodium (Synthroid -) 100 mcg NGT DAILY@0700 [facility] Last Admin: 05/24/18 06:52 Dose: 100 mcg Loratadine (Claritin -) 10 mg NGT DAILY [facility] Last Admin: 05/24/18 14:12 Dose: 10 mg Metoprolol Tartrate (Lopressor -) 50 mg NGT BID [facility] Last Admin: 05/24/18 14:14 Dose: Not Given Mirtazapine (Remeron -) 7.5 mg NGT HS [facility] Last Admin: 05/23/18 21:31 Dose: 7.5 mg Nystatin/Triamcinolone Acetonide (Mycolog Ii Ointment -) 1 applic TP BID [facility] Last Admin: 05/23/18 21:51 Dose: 1 applic Pantoprazole Sodium (Protonix Iv) 40 mg IVPUSH BID [facility] Last Admin: 05/24/18 14:11 Dose: 40 mg Potassium Phos/Sodium Phos (Phos-Nak Packet -) 1 packet NGT DAILY [facility] Last Admin: 05/24/18 14:13 Dose: 1 packet Sertraline HCl (Zoloft -) 50 mg NGT DAILY [facility] Last Admin: 05/24/18 14:12 Dose: 50 mg Sodium Chloride (Sodium Chloride Tablet -) 1 gm NGT DAILY [facility] Last Admin: 05/24/18 14:13 Dose: 1 gm Vancomycin HCl (Vancomycin Oral Solution) 125 mg NGT Q6HPO [facility] Last Admin: 05/24/18 14:15 Dose: 125 mg Zinc Sulfate (Orazinc -) 220 mg NGT DAILY [facility] Last Admin: 05/24/18 14:14 Dose: 220 mg 53 year old woman with hx of Multple Sclerosis, Hypertension, Hyperlipidemia, Hypothyroidism, trigeminal neualgia, hx of hyponatremia/SIADH who presented with low serum Na as an outpatient and admitted with acute worsening of serum Na. #Acute on Chronic hyponatremia likely due to SIADH Serum Sodium and renal function stable continue tube feeds, free water and salt tabs as ordered will sign off case at this time please call with any questions or concerns Thank you Tyshawn Doe DO
[2018-05-24] MEDS: ACETAMINOPHEN 650 MG/20.3 ML ORAL SOLUTION (CUPS) NGT PRN (18:20)
[2018-05-24] MEDS: NYSTATIN/TRIAMCINOLONE TOPICAL OINTMENT 15 GM TUBE TP SCH ×2 (18:24→22:18)
[2018-05-24] MEDS: MIRTAZAPINE 15 MG TABLET (FP) NGT SCH (21:34)
[2018-05-25] MEDS: VANCOMYCIN 250 MG/5 ML ORAL SOLUTION NGT SCH ×4 (00:29→17:50)
[2018-05-25] MEDS: LEVOTHYROXINE NA 100 MCG TABLET (FP) NGT SCH (06:13)
[2018-05-25] MEDS: hydrALAZINE HCL 50 MG TABLET (FP) NGT SCH ×3 (06:22→22:06)
[2018-05-25] MEDS: carBAMazepine 200 MG/10 ML UNIT-DOSE CUP NGT SCH ×3 (06:22→22:07)
[2018-05-25] MEDS: ACETAMINOPHEN 650 MG/20.3 ML ORAL SOLUTION (CUPS) NGT PRN (06:23)
[2018-05-25 07:08] LABS: HEMATOCRIT 28.6 % (32.4-45.2); HEMOGLOBIN 9.6 GM/dL (10.7-15.3); MCH 31.5 pg (25.7-33.7); MCHC 33.7 g/dl (32.0-36.0); MEAN CELL VOLUME 93.5 fl (80-96); MEAN PLT VOLUME 8.7 fl (7.5-11.1); NEUT % 74.8 % (42.8-82.8); PLATELET COUNT 446 K/MM3 (134-434); RBC 3.05 M/mm3 (3.60-5.2); RDW 15.4 % (11.6-15.6); WHITE BLOOD COUNT 6.2 K/mm3 (4.0-10.0)
[2018-05-25 07:09] LABS: BASO % 0.8 % (0-2.0); EOS % 3.3 % (0-4.5); LYMPH % 13.9 % (8-40); MONO % 7.2 % (3.8-10.2)
[2018-05-25 07:40] LABS: ALBUMIN 2.3 g/dl (3.4-5.0); ALK PHOS 139 U/L (45-117); ANION GAP 10 MMOL/L (8-16); BILIRUBIN,TOTAL 0.5 mg/dL (0.2-1); BLOOD UREA NITROGEN 18 mg/dL (7-18); CALCIUM 8.9 mg/dL (8.5-10.1); CHLORIDE 103 mmol/L (98-107); CO2 26 mmol/L (21-32); CREATININE 0.5 mg/dL (0.55-1.3); GLUCOSE,RANDOM 56 mg/dL (74-106); POTASSIUM 4.3 mmol/L (3.5-5.1); SGOT/AST 13 U/L (15-37); SGPT/ALT 13 U/L (13-61); SODIUM 139 mmol/L (136-145); TOT PROT 7.9 g/dl (6.4-8.2)
[2018-05-25] MEDS: ALBUTEROL SO4 2.5/IPRATROPIUM 0.5 INH SOL 3 ML VIAL.NEB. NEB SCH ×2 (07:52→12:32)
[2018-05-25] MEDS ORDERED: DEXTROSE 50%-WATER - 25 GM/50 ML VIAL IVPUSH ONE ×2 (09:54→11:00)
[2018-05-25] MEDS ORDERED: PT OWN MED DRAWER 7, Y5N ONE ×2 (10:50→15:04)
[2018-05-25] MEDS: METOPROLOL TARTRATE 50 MG TABLET (FP) NGT SCH ×2 (11:06→22:06)
[2018-05-25] MEDS: ZINC SULFATE 220 MG CAPSULE (FP) NGT SCH (11:06)
[2018-05-25] MEDS: FOLIC ACID 1 MG TABLET (FP) NGT SCH (11:06)
[2018-05-25] MEDS: LACTOBACILLUS ACIDOPHILUS 1 TABLET NGT SCH ×2 (11:06→22:06)
[2018-05-25] MEDS: NAPH,MB-DB/K PH,MBDB POWDER PACKET NGT SCH (11:06)
[2018-05-25] MEDS: FERROUS SO4 300 MG/5 ML ORAL SOLN UNIT DOSE CUPS NGT SCH (11:06)
[2018-05-25] MEDS: LORATADINE 10 MG TABLET NGT SCH (11:06)
[2018-05-25] MEDS: SERTRALINE HCL 50 MG TABLET (FP) NGT SCH (11:06)
[2018-05-25] MEDS: SODIUM CHLORIDE 1 GM TABLET NGT SCH (11:07)
[2018-05-25] MEDS: ASCORBIC ACID 500 MG/5 ML UNIT DOSE CUP NGT SCH (11:07)
[2018-05-25] MEDS: PANTOPRAZOLE SODIUM 40 MG VIAL IVPUSH SCH ×2 (11:07→22:07)
[2018-05-25] MEDS: CYANOCOBALAMIN 1,000 MCG TABLET (FP) NGT SCH (11:07)
[2018-05-25] MEDS: MULTIVIT-MINERALS ORAL LIQUID NGT SCH (11:08)
[2018-05-25] MEDS: NYSTATIN/TRIAMCINOLONE TOPICAL OINTMENT 15 GM TUBE TP SCH ×2 (11:08→23:15)
[2018-05-25] MEDS: BACITRACIN 15 GM TUBE TOPICAL OINTMENT TP SCH ×2 (11:08→23:15)
--- NOTE | 2018-05-25 12:21 | PN ---
Progress Note, [employer] - Note Progress Note: Selected Entries 05/25/18 05/25/18 05/25/18 02:00 06:00 09:22 Lunch NPO Temperature 98.4 F 98.2 F Laboratory Tests 05/25/18 06:10 WBC 6.2 PEG placed. NPO, waiting for abd xray reading, per nursing. PMV trial on vent. Voice is strong, euphonic. Continue PMV, as tolerated. Plan for bedside swallowing evaluation tomorrow, MBS Wednesday if stable.
[2018-05-25] MEDS: COLLAGENASE CLOSTRIDIUM HIST. 30 GRAMS TUBE TP SCH (12:42)
--- NOTE | 2018-05-25 13:37 | PN ---
Progress Note, Physician History of Present Illness: pulmonary awake,weak,-resp distress - Current Medication List Current Medications: Active Medications Acetaminophen (Tylenol Oral Solution -) 650 mg NGT Q6H PRN PRN Reason: FEVER Last Admin: 05/25/18 06:23 Dose: 650 mg Albuterol/Ipratropium (Duoneb -) 1 amp NEB RQID [facility] Last Admin: 05/25/18 12:32 Dose: 1 amp Ascorbic Acid (Vitamin C Oral Solution -) 500 mg NGT DAILY [facility] Last Admin: 05/25/18 11:07 Dose: 500 mg Bacitracin (Bacitracin -) 1 applic TP BID [facility] Last Admin: 05/25/18 11:08 Dose: 1 applic Carbamazepine (Tegretol Oral Suspension -) 100 mg NGT TID [facility] Last Admin: 05/25/18 06:22 Dose: 100 mg Collagenase (Santyl -) 1 applic TP DAILY [facility]; Protocol Last Admin: 05/25/18 12:42 Dose: 1 applic Cyanocobalamin (Vitamin B12 -) 1,000 mcg NGT DAILY [facility] Last Admin: 05/25/18 11:07 Dose: 1,000 mcg Diphenoxylate HCl/Atropine (Lomotil -) 1 combo PO Q8H PRN PRN Reason: DIARRHEA Last Admin: 05/21/18 23:41 Dose: 1 combo Ferrous Sulfate (Feosol) 300 mg NGT DAILY [facility] Last Admin: 05/25/18 11:06 Dose: 300 mg Folic Acid (Folic Acid -) 1 mg NGT DAILY [facility] Last Admin: 05/25/18 11:06 Dose: 1 mg Hydralazine HCl (Apresoline -) 50 mg NGT TID [facility] Last Admin: 05/25/18 06:22 Dose: Not Given Lactobacillus Acidophilus (Bacid -) 1 tab NGT BID [facility] Last Admin: 05/25/18 11:06 Dose: 1 tab Levothyroxine Sodium (Synthroid -) 100 mcg NGT DAILY@0700 [facility] Last Admin: 05/25/18 06:13 Dose: 100 mcg Loratadine (Claritin -) 10 mg NGT DAILY [facility] Last Admin: 05/25/18 11:06 Dose: 10 mg Metoprolol Tartrate (Lopressor -) 50 mg NGT BID [facility] Last Admin: 05/25/18 11:06 Dose: 50 mg Mirtazapine (Remeron -) 7.5 mg NGT HS [facility] Last Admin: 05/24/18 21:34 Dose: 7.5 mg Nystatin/Triamcinolone Acetonide (Mycolog Ii Ointment -) 1 applic TP BID [facility] Last Admin: 05/25/18 11:08 Dose: 1 applic Pantoprazole Sodium (Protonix Iv) 40 mg IVPUSH BID [facility] Last Admin: 05/25/18 11:07 Dose: 40 mg Potassium Phos/Sodium Phos (Phos-Nak Packet -) 1 packet NGT DAILY [facility] Last Admin: 05/25/18 11:06 Dose: 1 packet Sertraline HCl (Zoloft -) 50 mg NGT DAILY [facility] Last Admin: 05/25/18 11:06 Dose: 50 mg Sodium Chloride (Sodium Chloride Tablet -) 1 gm NGT DAILY [facility] Last Admin: 05/25/18 11:07 Dose: 1 gm Vancomycin HCl (Vancomycin Oral Solution) 125 mg NGT Q6HPO [facility] Last Admin: 05/25/18 12:42 Dose: 125 mg Zinc Sulfate (Orazinc -) 220 mg NGT DAILY [facility] Last Admin: 05/25/18 11:06 Dose: 220 mg - Objective Vital Signs: Vital Signs Temperature 98.2 F 05/25/18 06:00 Pulse Rate 75 05/25/18 09:56 Respiratory Rate 15 05/25/18 09:53 Blood Pressure 139/79 05/25/18 06:00 O2 Sat by Pulse Oximetry (%) 99 05/25/18 12:32 Constitutional: Yes: Calm, Thin Eyes: Yes: WNL HENT: Yes: WNL Neck: Yes: Supple (trach) Cardiovascular: Yes: Regular Rate and Rhythm, S1, S2 Respiratory: Yes: Rhonchi (scattered rhonchi) Gastrointestinal: Yes: Normal Bowel Sounds, Soft Extremities: Yes: WNL Edema: No Labs: CBC, BMP 05/25/18 06:10 05/25/18 06:10 INR, PTT INR 1.15 (0.83-1.09) H 05/20/18 14:15 Problem List - Problems (1) Anemia Code(s): D64.9 - ANEMIA, UNSPECIFIED (2) Electrolyte imbalance Code(s): E87.8 - OTH DISORDERS OF ELECTROLYTE AND FLUID BALANCE, NEC (3) Functional 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 (4) Toxic metabolic encephalopathy Code(s): G92 - TOXIC ENCEPHALOPATHY (5) Acute on chronic respiratory failure with hypoxia and hypercapnia Code(s): J96.21 - ACUTE AND CHRONIC RESPIRATORY FAILURE WITH HYPOXIA; J96.22 - ACUTE AND CHRONIC RESPIRATORY FAILURE WITH HYPERCAPNIA (6) Failure to thrive Code(s): ESR4800 - (7) Functional quadriplegia Code(s): R53.2 - FUNCTIONAL QUADRIPLEGIA (8) Hx of multiple sclerosis Code(s): Z86.69 - PERSONAL HISTORY OF DIS OF THE NERVOUS SYS AND SENSE ORGANS (9) Hypokalemia Code(s): E87.6 - HYPOKALEMIA (10) Multiple sclerosis Code(s): G35 - MULTIPLE SCLEROSIS (11) Pneumonia Code(s): J18.9 - PNEUMONIA, UNSPECIFIED ORGANISM Qualifiers: Pneumonia type: pneumonia due to methicillin-resistant Staphylococcus aureus (MRSA) (12) Sacral decubitus ulcer, stage IV Code(s): L89.154 - PRESSURE ULCER OF SACRAL REGION, STAGE 4 (13) Status post tracheostomy Code(s): Z93.0 - TRACHEOSTOMY STATUS Assessment/Plan ASSESSMENT/PLAN: Suspected aspiration pneumonitis AMS due to Severe Hyponatremia corrected Toxic Metabolic Encephalopathy Functional Quadriplegia Multiple Sclerosis Trigeminal Neuralgia Acute on chronic respiratory failure HTN Hypothyroidism Depression Anxiety C-dif ? LEAK GT nutritional support Wean trials as tolerated BD TX ABX per ID DR ELDER
--- NOTE | 2018-05-25 16:49 | PN ---
Progress Note, Physician Chief Complaint: Hyponatremia AMS C-diff History of Present Illness: Previous notes and events reviewed awake and alert NAD s/p PEG tube placement - Current Medication List Current Medications: Active Medications Acetaminophen (Tylenol Oral Solution -) 650 mg NGT Q6H PRN PRN Reason: FEVER Last Admin: 05/25/18 06:23 Dose: 650 mg Amino Acids (Prosource No Carb Liquid Pkt) 30 ml PEG BID@0800,1730 [facility] Ascorbic Acid (Vitamin C Oral Solution -) 500 mg NGT DAILY [facility] Last Admin: 05/25/18 11:07 Dose: 500 mg Bacitracin (Bacitracin -) 1 applic TP BID [facility] Last Admin: 05/25/18 11:08 Dose: 1 applic Carbamazepine (Tegretol Oral Suspension -) 100 mg NGT TID [facility] Last Admin: 05/25/18 15:09 Dose: 100 mg Collagenase (Santyl -) 1 applic TP DAILY [facility]; Protocol Last Admin: 05/25/18 12:42 Dose: 1 applic Cyanocobalamin (Vitamin B12 -) 1,000 mcg NGT DAILY [facility] Last Admin: 05/25/18 11:07 Dose: 1,000 mcg Diphenoxylate HCl/Atropine (Lomotil -) 1 combo PO Q8H PRN PRN Reason: DIARRHEA Last Admin: 05/21/18 23:41 Dose: 1 combo Ferrous Sulfate (Feosol) 300 mg NGT DAILY [facility] Last Admin: 05/25/18 11:06 Dose: 300 mg Folic Acid (Folic Acid -) 1 mg NGT DAILY [facility] Last Admin: 05/25/18 11:06 Dose: 1 mg Hydralazine HCl (Apresoline -) 50 mg NGT TID [facility] Last Admin: 05/25/18 15:09 Dose: 50 mg Lactobacillus Acidophilus (Bacid -) 1 tab NGT BID [facility] Last Admin: 05/25/18 11:06 Dose: 1 tab Levothyroxine Sodium (Synthroid -) 100 mcg NGT DAILY@0700 [facility] Last Admin: 05/25/18 06:13 Dose: 100 mcg Loratadine (Claritin -) 10 mg NGT DAILY [facility] Last Admin: 05/25/18 11:06 Dose: 10 mg Metoprolol Tartrate (Lopressor -) 50 mg NGT BID [facility] Last Admin: 05/25/18 11:06 Dose: 50 mg Mirtazapine (Remeron -) 7.5 mg NGT HS [facility] Last Admin: 05/24/18 21:34 Dose: 7.5 mg Nystatin/Triamcinolone Acetonide (Mycolog Ii Ointment -) 1 applic TP BID [facility] Last Admin: 05/25/18 11:08 Dose: 1 applic Pantoprazole Sodium (Protonix Iv) 40 mg IVPUSH BID [facility] Last Admin: 05/25/18 11:07 Dose: 40 mg Potassium Phos/Sodium Phos (Phos-Nak Packet -) 1 packet NGT DAILY [facility] Last Admin: 05/25/18 11:06 Dose: 1 packet Sertraline HCl (Zoloft -) 50 mg NGT DAILY [facility] Last Admin: 05/25/18 11:06 Dose: 50 mg Sodium Chloride (Sodium Chloride Tablet -) 1 gm NGT DAILY [facility] Last Admin: 05/25/18 11:07 Dose: 1 gm Vancomycin HCl (Vancomycin Oral Solution) 125 mg NGT Q6HPO [facility] Last Admin: 05/25/18 12:42 Dose: 125 mg Zinc Sulfate (Orazinc -) 220 mg NGT DAILY [facility] Last Admin: 05/25/18 11:06 Dose: 220 mg - Objective Vital Signs: Vital Signs Temperature 98.6 F 05/25/18 15:25 Pulse Rate 66 05/25/18 13:57 Respiratory Rate 17 05/25/18 13:57 Blood Pressure 124/70 05/25/18 13:57 O2 Sat by Pulse Oximetry (%) 98 05/25/18 13:46 Constitutional: Yes: No Distress, Calm Eyes: Yes: Conjunctiva Clear HENT: Yes: Atraumatic Neck: Yes: Other (trach) Cardiovascular: Yes: Regular Rate and Rhythm Respiratory: Yes: Mechanically Ventilated, Rhonchi Gastrointestinal: Yes: Normal Bowel Sounds, Soft, Distention (mild) Genitourinary: Yes: Incontinence Musculoskeletal: Yes: Muscle Weakness Extremities: Yes: WNL Edema: No Wound/Incision: Yes: Dressing Dry and Intact Neurological: Yes: Alert, Oriented Psychiatric: Yes: Alert Labs: CBC, BMP 05/25/18 06:10 05/25/18 06:10 INR, PTT INR 1.15 (0.83-1.09) H 05/20/18 14:15 Problem List - Problems (1) Abnormal LFTs Assessment/Plan: -monitor LFTs -LFTs showing downtrend with Alk phos 139 Code(s): R94.5 - ABNORMAL RESULTS OF LIVER FUNCTION STUDIES (2) Anemia Assessment/Plan: -monitor Hg daily -transfuse for Hg <8.0 -current Hg 9.6 Code(s): D64.9 - ANEMIA, UNSPECIFIED (3) C. difficile diarrhea Assessment/Plan: -contact precaution -continue with vancomycin qid -positve c-diff antigen Code(s): A04.72 - ENTEROCOLITIS D/T CLOSTRIDIUM DIFFICILE, NOT SPCF RECUR (4) Functional quadriplegia secondary to MS Assessment/Plan: -turn and position q2h -FC -dvt ppx Code(s): G35 - MULTIPLE SCLEROSIS; R53.2 - FUNCTIONAL QUADRIPLEGIA (5) Hypothyroid Assessment/Plan: -continue with levothyroxine Code(s): E03.9 - HYPOTHYROIDISM, UNSPECIFIED (6) Hyperkalemia Assessment/Plan: -resolved -current K 4.3 Code(s): E87.5 - HYPERKALEMIA (7) Hyponatremia Assessment/Plan: -resolved -current Na 139 Code(s): E87.1 - HYPO-OSMOLALITY AND HYPONATREMIA (8) Pneumonia Assessment/Plan: -CXR shows right base atelectasis and/or infiltrate -pulm on board -maintain SpO2 >90% -duoneb tx PRN for SOB Code(s): J18.9 - PNEUMONIA, UNSPECIFIED ORGANISM Qualifiers: Pneumonia type: pneumonia due to methicillin-resistant Staphylococcus aureus (MRSA) (9) HTN (hypertension) Assessment/Plan: -continue with hydralazine and metoprolol -hold BP meds if SBP <110 and/or DBP <70 Code(s): I10 - ESSENTIAL (PRIMARY) HYPERTENSION (10) Hx of multiple sclerosis Assessment/Plan: -ventilator dependent -PEG tube placed and cleared for use, started back on feeds -neurology on board -[employer] on board -on discharge outpatient augmentive communication therapy at [facility] Code(s): Z86.69 - PERSONAL HISTORY OF DIS OF THE NERVOUS SYS AND SENSE ORGANS Assessment/Plan see problem list dvt ppx
[2018-05-25] MEDS: AMINO ACIDS/PROTEIN HYDROLYS 30 ML LIQUID.PKT PEG SCH (17:49)
[2018-05-25] MEDS ORDERED: ALBUTEROL SO4 2.5/IPRATROPIUM 0.5 INH SOL 3 ML VIAL.NEB. NEB PRN (18:14)
[2018-05-25] MEDS ORDERED: clonazePAM 0.5 MG TABLET PO ONE (18:58)
--- NOTE | 2018-05-25 19:50 | PN ---
Progress Note (short form) - Note Progress Note: NEUROLOGY PROGRESS NOTE: Events reviewed and discussed with staff. Mother at bedside. Now S/P G tube placement with reports of loose stools, however still on vanco for C. Diff colitis. Facial pains improved with resumption of tegretol 100 mg TID. Requesting something to help her sleep due to "anxiety." GODFREY: Perera and G-tube in situ. Trached, without PMV currently. NEURO EXAM: Awake, alert, expressive with lips. Appears in better spirits. Improved tongue ESSENCE's Tetraplegic. Areflexic. Reduced pinch in all fours. Impression: Advanced MS Toxic-Metabolic Encephalopathy - improving on abx Trigeminal Neuralgia Generalized Anxiety/Insomnia Suggest: Consult with line supply to increase fiber through G-tube to improve bowel regimen Maintain perera care and patency. Wound care. Continue PMV as tolerated Continue Tegretol 100 MG TID via G-tube at this time Add Klonopin 0.5 mg via G-tube qhs for sleep (Can increase to BID for daytime anxiety if necessary). Thank you very much, Rom Conroy MD
[2018-05-25] MEDS ORDERED: ALBUTEROL SO4 2.5/IPRATROPIUM 0.5 INH SOL 3 ML VIAL.NEB. NEB SCH (20:00)
[2018-05-25] MEDS: ALBUTEROL SO4 2.5/IPRATROPIUM 0.5 INH SOL 3 ML VIAL.NEB. NEB PRN (20:10)
[2018-05-25] MEDS: clonazePAM 0.5 MG TABLET NGT SCH (22:06)
[2018-05-25] MEDS: MIRTAZAPINE 15 MG TABLET (FP) NGT SCH (22:07)
[2018-05-26] MEDS: VANCOMYCIN 250 MG/5 ML ORAL SOLUTION NGT SCH ×4 (00:15→18:17)
[2018-05-26] MEDS: hydrALAZINE HCL 50 MG TABLET (FP) NGT SCH ×3 (06:43→21:03)
[2018-05-26] MEDS: carBAMazepine 200 MG/10 ML UNIT-DOSE CUP NGT SCH ×3 (06:43→21:05)
[2018-05-26] MEDS: LEVOTHYROXINE NA 100 MCG TABLET (FP) NGT SCH (06:43)
[2018-05-26 07:19] LABS: BASO % 0.7 % (0-2.0); EOS % 3.8 % (0-4.5); HEMATOCRIT 28.6 % (32.4-45.2); HEMOGLOBIN 9.7 GM/dL (10.7-15.3); LYMPH % 13.4 % (8-40); MCH 31.4 pg (25.7-33.7); MCHC 33.8 g/dl (32.0-36.0); MEAN CELL VOLUME 92.7 fl (80-96); MEAN PLT VOLUME 8.5 fl (7.5-11.1); NEUT % 71.1 % (42.8-82.8); PLATELET COUNT 448 K/MM3 (134-434); RBC 3.09 M/mm3 (3.60-5.2); RDW 15.2 % (11.6-15.6); WHITE BLOOD COUNT 7.6 K/mm3 (4.0-10.0)
[2018-05-26 07:38] LABS: ALBUMIN 2.2 g/dl (3.4-5.0); ALK PHOS 142 U/L (45-117); ANION GAP 4 MMOL/L (8-16); BILIRUBIN,TOTAL 0.2 mg/dL (0.2-1); BLOOD UREA NITROGEN 20 mg/dL (7-18); CALCIUM 8.8 mg/dL (8.5-10.1); CHLORIDE 105 mmol/L (98-107); CO2 32 mmol/L (21-32); CREATININE 0.5 mg/dL (0.55-1.3); GLUCOSE,RANDOM 154 mg/dL (74-106); SGOT/AST 12 U/L (15-37); SGPT/ALT 13 U/L (13-61); SODIUM 140 mmol/L (136-145); TOT PROT 7.8 g/dl (6.4-8.2)
[2018-05-26] MEDS: AMINO ACIDS/PROTEIN HYDROLYS 30 ML LIQUID.PKT PEG SCH ×2 (09:00→18:17)
[2018-05-26] MEDS ORDERED: PT OWN MED DRAWER 7, Y5N ONE (09:20)
[2018-05-26] MEDS: ASCORBIC ACID 500 MG/5 ML UNIT DOSE CUP NGT SCH (09:44)
[2018-05-26] MEDS: NAPH,MB-DB/K PH,MBDB POWDER PACKET NGT SCH (09:44)
[2018-05-26] MEDS: LACTOBACILLUS ACIDOPHILUS 1 TABLET NGT SCH ×2 (09:44→21:04)
[2018-05-26] MEDS: FERROUS SO4 300 MG/5 ML ORAL SOLN UNIT DOSE CUPS NGT SCH (09:44)
[2018-05-26] MEDS: METOPROLOL TARTRATE 50 MG TABLET (FP) NGT SCH ×2 (09:45→21:04)
[2018-05-26] MEDS: ZINC SULFATE 220 MG CAPSULE (FP) NGT SCH (09:45)
[2018-05-26] MEDS: SODIUM CHLORIDE 1 GM TABLET NGT SCH (09:45)
[2018-05-26] MEDS: MULTIVIT-MINERALS ORAL LIQUID NGT SCH (09:45)
[2018-05-26] MEDS: CYANOCOBALAMIN 1,000 MCG TABLET (FP) NGT SCH (09:45)
[2018-05-26] MEDS: FOLIC ACID 1 MG TABLET (FP) NGT SCH (09:45)
[2018-05-26] MEDS: LORATADINE 10 MG TABLET NGT SCH (09:45)
[2018-05-26] MEDS: SERTRALINE HCL 50 MG TABLET (FP) NGT SCH (09:45)
[2018-05-26] MEDS: BACITRACIN 15 GM TUBE TOPICAL OINTMENT TP SCH ×2 (09:46→22:42)
[2018-05-26] MEDS: PANTOPRAZOLE SODIUM 40 MG VIAL IVPUSH SCH ×2 (09:46→21:02)
--- NOTE | 2018-05-26 10:15 | PN ---
Progress Note (short form) - Note Progress Note: Awake and alert on SIMV Mode of vent. Appears comfortable. Minimal discomfort from the GT site. Intake & Output 05/23/18 05/24/18 05/25/18 05/26/18 23:59 23:59 23:59 23:59 Intake Total 1050 0 114 627 Output Total 1775 750 950 200 Balance -725 -750 -836 427 Last Vital Signs Temp Pulse Resp BP Pulse Ox 97.8 F 95 H 16 132/76 97 05/26/18 10:02 05/26/18 10:03 05/26/18 10:02 05/26/18 10:02 05/26/18 10:03 Active Medications Acetaminophen (Tylenol Oral Solution -) 650 mg NGT Q6H PRN PRN Reason: FEVER Last Admin: 05/25/18 06:23 Dose: 650 mg Albuterol/Ipratropium (Duoneb -) 1 amp NEB Q6H PRN PRN Reason: SHORT OF BREATH/WHEEZING Last Admin: 05/25/18 20:10 Dose: 1 amp Amino Acids (Prosource No Carb Liquid Pkt) 30 ml PEG BID@0800,1730 [facility] Last Admin: 05/26/18 09:00 Dose: 30 ml Ascorbic Acid (Vitamin C Oral Solution -) 500 mg NGT DAILY [facility] Last Admin: 05/26/18 09:44 Dose: 500 mg Bacitracin (Bacitracin -) 1 applic TP BID [facility] Last Admin: 05/26/18 09:46 Dose: 1 applic Carbamazepine (Tegretol Oral Suspension -) 100 mg NGT TID [facility] Last Admin: 05/26/18 06:43 Dose: 100 mg Clonazepam (Klonopin -) 0.5 mg NGT HS [facility] Last Admin: 05/25/18 22:06 Dose: 0.5 mg Collagenase (Santyl -) 1 applic TP DAILY [facility]; Protocol Last Admin: 05/25/18 12:42 Dose: 1 applic Cyanocobalamin (Vitamin B12 -) 1,000 mcg NGT DAILY [facility] Last Admin: 05/26/18 09:45 Dose: 1,000 mcg Ferrous Sulfate (Feosol) 300 mg NGT DAILY [facility] Last Admin: 05/26/18 09:44 Dose: 300 mg Folic Acid (Folic Acid -) 1 mg NGT DAILY [facility] Last Admin: 05/26/18 09:45 Dose: 1 mg Hydralazine HCl (Apresoline -) 50 mg NGT TID [facility] Last Admin: 05/26/18 06:43 Dose: 50 mg Lactobacillus Acidophilus (Bacid -) 1 tab NGT BID [facility] Last Admin: 05/26/18 09:44 Dose: 1 tab Levothyroxine Sodium (Synthroid -) 100 mcg NGT DAILY@0700 [facility] Last Admin: 05/26/18 06:43 Dose: 100 mcg Loratadine (Claritin -) 10 mg NGT DAILY [facility] Last Admin: 05/26/18 09:45 Dose: 10 mg Metoprolol Tartrate (Lopressor -) 50 mg NGT BID [facility] Last Admin: 05/26/18 09:45 Dose: 50 mg Mirtazapine (Remeron -) 7.5 mg NGT HS [facility] Last Admin: 05/25/18 22:07 Dose: 7.5 mg Nystatin/Triamcinolone Acetonide (Mycolog Ii Ointment -) 1 applic TP BID [facility] Last Admin: 05/25/18 23:15 Dose: 1 applic Pantoprazole Sodium (Protonix Iv) 40 mg IVPUSH BID [facility] Last Admin: 05/26/18 09:46 Dose: 40 mg Potassium Phos/Sodium Phos (Phos-Nak Packet -) 1 packet NGT DAILY [facility] Last Admin: 05/26/18 09:44 Dose: 1 packet Sertraline HCl (Zoloft -) 50 mg NGT DAILY [facility] Last Admin: 05/26/18 09:45 Dose: 50 mg Sodium Chloride (Sodium Chloride Tablet -) 1 gm NGT DAILY [facility] Last Admin: 05/26/18 09:45 Dose: 1 gm Vancomycin HCl (Vancomycin Oral Solution) 125 mg NGT Q6HPO [facility] Last Admin: 05/26/18 06:41 Dose: 125 mg Zinc Sulfate (Orazinc -) 220 mg NGT DAILY [facility] Last Admin: 05/26/18 09:45 Dose: 220 mg GENERAL: Vented, awake and responsive HEAD: Normal with no signs of trauma. EYES: Pupils equal, round and reactive to light, sclera anicteric, conjunctiva clear. ENT: Dry mucous membranes with oral thrush NECK: (-) JVD, (+) Trach intact LUNGS: Bilateral scattered rhonchi. Mechanically ventilated HEART: Regular rate and rhythm, normal S1 and S2 without murmur, rub or gallop. ABDOMEN: Soft, nontender, not distended, normoactive bowel sounds, (+) GT MUSCULOSKELETAL: No CVA tenderness. EXTREMITIES: 2+ pulses, warm, well-perfused. No calf tenderness. Trace pitting edema NEUROLOGICAL: paraplegic SKIN: (+) Stage III sacral ulcer, with multiple pressure injuries in the sacral and coccyx area. Laboratory Results - last 24 hr 05/25/18 05/26/18 05/26/18 12:09 06:30 06:30 WBC 7.6 RBC 3.09 L Hgb 9.7 L Hct 28.6 L MCV 92.7 MCH 31.4 MCHC 33.8 RDW 15.2 Plt Count 448 H MPV 8.5 Absolute Neuts (auto) 5.4 Neutrophils % 71.1 Lymphocytes % 13.4 Monocytes % 11.0 H Eosinophils % 3.8 Basophils % 0.7 Nucleated RBC % 0 Sodium 140 Potassium 4.0 Chloride 105 Carbon Dioxide 32 Anion Gap 4 L BUN 20 H Creatinine 0.5 L Creat Clearance w eGFR 128.57 POC Glucometer 114 Random Glucose 154 H Calcium 8.8 Total Bilirubin 0.2 AST 12 L ALT 13 Alkaline Phosphatase 142 H Total Protein 7.8 Albumin 2.2 L ASSESSMENT/PLAN: Suspected aspiration pneumonitis AMS due to Severe Hyponatremia Toxic Metabolic Encephalopathy Functional Quadriplegia Multiple Sclerosis Trigeminal Neuralgia Acute on chronic respiratory failure HTN Hypothyroidism Depression Anxiety Stable for Trach collar Can use PMV with observation No contraindication for swallow evaluation Enteral feeds as tolerated Baclofen pump BD TX ABX per ID Aspiration precautions VTE prophylaxis D/C planning Dr Fox
[2018-05-26] MEDS: NYSTATIN/TRIAMCINOLONE TOPICAL OINTMENT 15 GM TUBE TP SCH ×2 (10:18→21:04)
[2018-05-26] MEDS: COLLAGENASE CLOSTRIDIUM HIST. 30 GRAMS TUBE TP SCH (10:19)
--- NOTE | 2018-05-26 11:43 | PN ---
Progress Note, Physician Chief Complaint: Hyponatremia AMS C-diff History of Present Illness: Previous notes and events reviewed awake and alert NAD s/p PEG tube placement tolerating feeds - Current Medication List Current Medications: Active Medications Acetaminophen (Tylenol Oral Solution -) 650 mg NGT Q6H PRN PRN Reason: FEVER Last Admin: 05/25/18 06:23 Dose: 650 mg Albuterol/Ipratropium (Duoneb -) 1 amp NEB Q6H PRN PRN Reason: SHORT OF BREATH/WHEEZING Last Admin: 05/25/18 20:10 Dose: 1 amp Amino Acids (Prosource No Carb Liquid Pkt) 30 ml PEG BID@0800,1730 [facility] Last Admin: 05/26/18 09:00 Dose: 30 ml Ascorbic Acid (Vitamin C Oral Solution -) 500 mg NGT DAILY [facility] Last Admin: 05/26/18 09:44 Dose: 500 mg Bacitracin (Bacitracin -) 1 applic TP BID [facility] Last Admin: 05/26/18 09:46 Dose: 1 applic Carbamazepine (Tegretol Oral Suspension -) 100 mg NGT TID [facility] Last Admin: 05/26/18 06:43 Dose: 100 mg Clonazepam (Klonopin -) 0.5 mg NGT HS [facility] Last Admin: 05/25/18 22:06 Dose: 0.5 mg Collagenase (Santyl -) 1 applic TP DAILY [facility]; Protocol Last Admin: 05/25/18 12:42 Dose: 1 applic Cyanocobalamin (Vitamin B12 -) 1,000 mcg NGT DAILY [facility] Last Admin: 05/26/18 09:45 Dose: 1,000 mcg Ferrous Sulfate (Feosol) 300 mg NGT DAILY [facility] Last Admin: 05/26/18 09:44 Dose: 300 mg Folic Acid (Folic Acid -) 1 mg NGT DAILY [facility] Last Admin: 05/26/18 09:45 Dose: 1 mg Hydralazine HCl (Apresoline -) 50 mg NGT TID [facility] Last Admin: 05/26/18 06:43 Dose: 50 mg Lactobacillus Acidophilus (Bacid -) 1 tab NGT BID [facility] Last Admin: 05/26/18 09:44 Dose: 1 tab Levothyroxine Sodium (Synthroid -) 100 mcg NGT DAILY@0700 [facility] Last Admin: 05/26/18 06:43 Dose: 100 mcg Loratadine (Claritin -) 10 mg NGT DAILY [facility] Last Admin: 05/26/18 09:45 Dose: 10 mg Metoprolol Tartrate (Lopressor -) 50 mg NGT BID [facility] Last Admin: 05/26/18 09:45 Dose: 50 mg Mirtazapine (Remeron -) 7.5 mg NGT HS [facility] Last Admin: 05/25/18 22:07 Dose: 7.5 mg Nystatin/Triamcinolone Acetonide (Mycolog Ii Ointment -) 1 applic TP BID [facility] Last Admin: 05/25/18 23:15 Dose: 1 applic Pantoprazole Sodium (Protonix Iv) 40 mg IVPUSH BID [facility] Last Admin: 05/26/18 09:46 Dose: 40 mg Potassium Phos/Sodium Phos (Phos-Nak Packet -) 1 packet NGT DAILY [facility] Last Admin: 05/26/18 09:44 Dose: 1 packet Sertraline HCl (Zoloft -) 50 mg NGT DAILY [facility] Last Admin: 05/26/18 09:45 Dose: 50 mg Sodium Chloride (Sodium Chloride Tablet -) 1 gm NGT DAILY [facility] Last Admin: 05/26/18 09:45 Dose: 1 gm Vancomycin HCl (Vancomycin Oral Solution) 125 mg NGT Q6HPO [facility] Last Admin: 05/26/18 06:41 Dose: 125 mg Zinc Sulfate (Orazinc -) 220 mg NGT DAILY [facility] Last Admin: 05/26/18 09:45 Dose: 220 mg - Objective Vital Signs: Vital Signs Temperature 97.8 F 05/26/18 10:02 Pulse Rate 95 H 05/26/18 10:03 Respiratory Rate 16 05/26/18 10:02 Blood Pressure 132/76 05/26/18 10:02 O2 Sat by Pulse Oximetry (%) 97 05/26/18 10:03 Constitutional: Yes: No Distress, Calm Eyes: Yes: Conjunctiva Clear HENT: Yes: Atraumatic Neck: Yes: Other (trach) Cardiovascular: Yes: Regular Rate and Rhythm Respiratory: Yes: Mechanically Ventilated, Rhonchi Gastrointestinal: Yes: Normal Bowel Sounds, Soft, Other (PEG tube) Genitourinary: Yes: Raza Present Musculoskeletal: Yes: Muscle Weakness Extremities: Yes: WNL Edema: No Wound/Incision: Yes: Dressing Dry and Intact Neurological: Yes: Alert, Oriented Psychiatric: Yes: Alert Labs: CBC, BMP 05/26/18 06:30 05/26/18 06:30 INR, PTT INR 1.15 (0.83-1.09) H 05/20/18 14:15 Problem List - Problems (1) Abnormal LFTs Assessment/Plan: -monitor LFTs -LFTs showing downtrend with Alk phos 142 Code(s): R94.5 - ABNORMAL RESULTS OF LIVER FUNCTION STUDIES (2) Anemia Assessment/Plan: -monitor Hg daily -transfuse for Hg <8.0 -current Hg 9.7 Code(s): D64.9 - ANEMIA, UNSPECIFIED (3) C. difficile diarrhea Assessment/Plan: -contact precaution -continue with vancomycin qid -positve c-diff antigen Code(s): A04.72 - ENTEROCOLITIS D/T CLOSTRIDIUM DIFFICILE, NOT SPCF RECUR (4) Functional quadriplegia secondary to MS Assessment/Plan: -turn and position q2h -FC -dvt ppx Code(s): G35 - MULTIPLE SCLEROSIS; R53.2 - FUNCTIONAL QUADRIPLEGIA (5) Hypothyroid Assessment/Plan: -continue with levothyroxine Code(s): E03.9 - HYPOTHYROIDISM, UNSPECIFIED (6) Hyperkalemia Assessment/Plan: -resolved -current K 4.0 Code(s): E87.5 - HYPERKALEMIA (7) Hyponatremia Assessment/Plan: -resolved -current Na 140 Code(s): E87.1 - HYPO-OSMOLALITY AND HYPONATREMIA (8) Pneumonia Assessment/Plan: -CXR shows right base atelectasis and/or infiltrate -pulm on board -maintain SpO2 >90% -duoneb tx PRN for SOB Code(s): J18.9 - PNEUMONIA, UNSPECIFIED ORGANISM Qualifiers: Pneumonia type: pneumonia due to methicillin-resistant Staphylococcus aureus (MRSA) (9) HTN (hypertension) Assessment/Plan: -continue with hydralazine and metoprolol -hold BP meds if SBP <110 and/or DBP <70 Code(s): I10 - ESSENTIAL (PRIMARY) HYPERTENSION (10) Hx of multiple sclerosis Assessment/Plan: -ventilator dependent -PEG tube placed and cleared for use, started back on feeds--tolerating well -neurology on board -DIRECTOR OF MATERIALS on board-swallow eval at bedside today and MBS tomorrow -[facility] Code(s): Z86.69 - PERSONAL HISTORY OF DIS OF THE NERVOUS SYS AND SENSE ORGANS Assessment/Plan see problem list dvt ppx
--- NOTE | 2018-05-26 12:10 | PN ---
Progress Note, TANK CHARGER - Note Progress Note: Tolerating PMV well,with good voicing and fair volume. Evaluated pt with small sips of water with delayed but fairly strong swallow. No cough response.Silent aspiration can not be r/o at bedside. REC: Mouth care TID PMV as tolerated Allow limited ice chips following mouth care c/o oral dryness- Biotene spray? Consider EMST (expiratory muscle strength call center trainer device) for improved expiration, swallowing, speech volume. May need to be puchased by family as out pt EMST 150 $50
[2018-05-26] MEDS: ACETAMINOPHEN 650 MG/20.3 ML ORAL SOLUTION (CUPS) NGT PRN (13:39)
[2018-05-26] MEDS: ALBUTEROL SO4 2.5/IPRATROPIUM 0.5 INH SOL 3 ML VIAL.NEB. NEB PRN (16:45)
[2018-05-26] MEDS: MIRTAZAPINE 15 MG TABLET (FP) NGT SCH (21:04)
[2018-05-26] MEDS: clonazePAM 0.5 MG TABLET NGT SCH (21:04)
[2018-05-27] MEDS: VANCOMYCIN 250 MG/5 ML ORAL SOLUTION NGT SCH ×5 (00:01→23:32)
[2018-05-27] MEDS: ACETAMINOPHEN 650 MG/20.3 ML ORAL SOLUTION (CUPS) NGT PRN ×2 (01:16→14:11)
[2018-05-27] MEDS: hydrALAZINE HCL 50 MG TABLET (FP) NGT SCH ×3 (05:41→23:30)
[2018-05-27] MEDS: carBAMazepine 200 MG/10 ML UNIT-DOSE CUP NGT SCH ×2 (05:42→14:16)
[2018-05-27 06:23] LABS: HEMATOCRIT 28.1 % (32.4-45.2); HEMOGLOBIN 9.5 GM/dL (10.7-15.3); MCH 31.5 pg (25.7-33.7); MEAN CELL VOLUME 92.5 fl (80-96); MEAN PLT VOLUME 8.4 fl (7.5-11.1); PLATELET COUNT 406 K/MM3 (134-434); RBC 3.03 M/mm3 (3.60-5.2); RDW 15.4 % (11.6-15.6); WHITE BLOOD COUNT 6.7 K/mm3 (4.0-10.0)
[2018-05-27] MEDS: LEVOTHYROXINE NA 100 MCG TABLET (FP) NGT SCH (06:29)
[2018-05-27 06:40] LABS: ALBUMIN 2.2 g/dl (3.4-5.0); ALK PHOS 138 U/L (45-117); ANION GAP 4 MMOL/L (8-16); BILIRUBIN,TOTAL 0.2 mg/dL (0.2-1); BLOOD UREA NITROGEN 25 mg/dL (7-18); CALCIUM 8.6 mg/dL (8.5-10.1); CHLORIDE 105 mmol/L (98-107); CO2 32 mmol/L (21-32); CREATININE 0.4 mg/dL (0.55-1.3); GLUCOSE,RANDOM 145 mg/dL (74-106); POTASSIUM 3.9 mmol/L (3.5-5.1); SGOT/AST 11 U/L (15-37); SGPT/ALT 13 U/L (13-61); SODIUM 140 mmol/L (136-145); TOT PROT 7.7 g/dl (6.4-8.2)
[2018-05-27] MEDS: ALBUTEROL SO4 2.5/IPRATROPIUM 0.5 INH SOL 3 ML VIAL.NEB. NEB PRN ×2 (07:58→11:21)
[2018-05-27] MEDS ORDERED: PT OWN MED DRAWER 7, Y5N ONE (08:56)
[2018-05-27] MEDS: LACTOBACILLUS ACIDOPHILUS 1 TABLET NGT SCH ×2 (09:50→23:29)
[2018-05-27] MEDS: FERROUS SO4 300 MG/5 ML ORAL SOLN UNIT DOSE CUPS NGT SCH (09:50)
[2018-05-27] MEDS: ZINC SULFATE 220 MG CAPSULE (FP) NGT SCH (09:50)
[2018-05-27] MEDS: METOPROLOL TARTRATE 50 MG TABLET (FP) NGT SCH ×2 (09:50→23:30)
[2018-05-27] MEDS: CYANOCOBALAMIN 1,000 MCG TABLET (FP) NGT SCH (09:50)
[2018-05-27] MEDS: SERTRALINE HCL 50 MG TABLET (FP) NGT SCH (09:50)
[2018-05-27] MEDS: LORATADINE 10 MG TABLET NGT SCH (09:50)
[2018-05-27] MEDS: SODIUM CHLORIDE 1 GM TABLET NGT SCH (09:50)
[2018-05-27] MEDS: BACITRACIN 15 GM TUBE TOPICAL OINTMENT TP SCH ×2 (09:51→23:31)
[2018-05-27] MEDS: MULTIVIT-MINERALS ORAL LIQUID NGT SCH (09:51)
[2018-05-27] MEDS: AMINO ACIDS/PROTEIN HYDROLYS 30 ML LIQUID.PKT PEG SCH ×2 (09:52→17:58)
[2018-05-27] MEDS: FOLIC ACID 1 MG TABLET (FP) NGT SCH (09:52)
[2018-05-27] MEDS: ASCORBIC ACID 500 MG/5 ML UNIT DOSE CUP NGT SCH (09:53)
[2018-05-27] MEDS: PANTOPRAZOLE SODIUM 40 MG VIAL IVPUSH SCH ×2 (09:53→23:30)
[2018-05-27] MEDS: NAPH,MB-DB/K PH,MBDB POWDER PACKET NGT SCH (09:53)
[2018-05-27] MEDS: COLLAGENASE CLOSTRIDIUM HIST. 30 GRAMS TUBE TP SCH (10:10)
--- NOTE | 2018-05-27 11:14 | DS ---
Physical Examination Vital Signs: Vital Signs Temperature 98.5 F 05/27/18 06:07 Pulse Rate 103 H 05/27/18 09:34 Respiratory Rate 20 05/27/18 06:28 Blood Pressure 126/61 05/27/18 06:07 O2 Sat by Pulse Oximetry (%) 96 05/27/18 09:34 Findings/Remarks: Patient is a 53 y/o female with past medical history of MS (functional quadriplegia), trach collar, baclofen pump, toxic encephalopathy, HTN, HLD, hypothyroidism, trigeminal neuralgia. Patient presented to ER with abnormal labs after CMP revealed low Na levels. In ER found to hypothermic. Patient was followed by renal and Hyponatremia improved and is now with Na 140. Patient was noted to have WBC elev and CXR shows RLL, ID was consulted and started on IV ABT. While in patient patient agreed to PEG tube placement. Underment PEG tube placement with no adverse reactions and currently tolerating feeds. MBS performed and shows patient able to tolerate dysphagia/puree diet with nectar thick liquids on a teaspoon. Trial of colored foods to monitor for aspiration. Patient should be seated symmetrically upright in bed with pillow behind head. Patient should have assistance with flexing hear head with swallowing. Patient should only be fed with cuff deflated and PMV in place. She should be fully alert and not congested. Primary nutrition should be from PEG tube and with pleasure feedings by mouth. Constitutional: Yes: Well Nourished, No Distress, Calm Eyes: Yes: Conjunctiva Clear HENT: Yes: Atraumatic Cardiovascular: Yes: Regular Rate and Rhythm Respiratory: Yes: Mechanically Ventilated, Rhonchi Gastrointestinal: Yes: Normal Bowel Sounds, Soft, Other (PEG) Renal/: Yes: Incontinence Musculoskeletal: Yes: Muscle Weakness Extremities: Yes: WNL Edema: No Wound/Incision: Yes: Dressing Dry and Intact Neurological: Yes: Alert, Oriented Psychiatric: Yes: Alert Labs: CBC, BMP 05/27/18 06:00 05/27/18 06:00 Discharge Summary Reason For Visit: HYPONATREMIA,HYPOTHERMIA Current Active Problems Abnormal LFTs (Acute) Anemia (Acute) Aspiration pneumonia (Acute) C. difficile diarrhea (Acute) Electrolyte imbalance (Acute) Functional quadriplegia secondary to MS (Acute) Hyperkalemia (Acute) Hyponatremia (Acute) Hyponatremia (Acute) Hypothermia (Acute) Hypothyroid (Acute) Insomnia (Acute) Leukocytosis (Acute) Leukocytosis (Acute) Toxic metabolic encephalopathy (Acute) Procedures: Principal: PEG placement Hospital Course: see progress notes Laboratory Tests 05/03/18 05/03/18 05/03/18 17:40 17:40 17:40 WBC 5.8 RBC 3.42 L Hgb 11.1 Hct 32.1 L MCV 93.9 MCH 32.5 MCHC 34.6 RDW 15.9 H Plt Count 109 L D MPV 9.2 Absolute Neuts (auto) 4.9 Neutrophils % 84.6 H D Neutrophils % (Manual) Band Neutrophils % Lymphocytes % 11.4 D Lymphocytes % (Manual) Monocytes % 3.1 L Monocytes % (Manual) Eosinophils % 0.8 D Eosinophils % (Manual) Basophils % 0.1 Basophils % (Manual) Myelocytes % (Man) Promyelocytes % (Man) Blast Cells % (Manual) Nucleated RBC % 0 Metamyelocytes Hypochromia Platelet Estimate Polychromasia Poikilocytosis Basophilic Stippling Anisocytosis Microcytosis Macrocytosis ESR PT with INR INR Sodium 126 L Potassium 4.6 Chloride 86 L Carbon Dioxide 31 Anion Gap 9 BUN 13 Creatinine 0.4 L Creat Clearance w eGFR > 60 Random Glucose 70 L POC Glucometer Serum Osmolality Lactic Acid Calcium 9.0 Phosphorus Magnesium Iron TIBC Iron Saturation Total Bilirubin 0.2 AST 63 H ALT 77 H Alkaline Phosphatase 296 H Creatine Kinase 91 Troponin I < 0.02 C-Reactive Protein Total Protein 7.9 Albumin 2.9 L Vitamin B12 TSH 2.71 Urine Color Red Urine Appearance Slcloudy Urine pH 7.0 Ur Specific Welch 1.005 L Urine Protein 2+ H Urine Glucose (UA) Negative Urine Ketones Negative Urine Blood Negative Urine Nitrite Negative Urine Bilirubin Negative Urine Urobilinogen Negative Ur Leukocyte Esterase 1+ H D Urine WBC (Auto) 6 Urine RBC (Auto) <1 Ur Epithelial Cells Rare Triple Phos Crystals Urine Bacteria Rare Urine Osmolality Vancomycin Pre-Dose Random Vancomycin Carbamazepine Blood Type Antibody Screen Crossmatch 05/03/18 05/04/18 05/04/18 17:40 01:49 05:30 WBC 3.9 L RBC 3.20 L Hgb 10.1 L Hct 29.4 L MCV 91.9 MCH 31.6 MCHC 34.4 RDW 15.7 H Plt Count 106 L MPV 8.9 Absolute Neuts (auto) 3.0 Neutrophils % 77.8 Neutrophils % (Manual) Band Neutrophils % Lymphocytes % 15.9 D Lymphocytes % (Manual) Monocytes % 4.9 Monocytes % (Manual) Eosinophils % 0.8 Eosinophils % (Manual) Basophils % 0.6 D Basophils % (Manual) Myelocytes % (Man) Promyelocytes % (Man) Blast Cells % (Manual) Nucleated RBC % 0 Metamyelocytes Hypochromia Platelet Estimate Polychromasia Poikilocytosis Basophilic Stippling Anisocytosis Microcytosis Macrocytosis ESR PT with INR INR Sodium Potassium Chloride Carbon Dioxide Anion Gap BUN Creatinine Creat Clearance w eGFR Random Glucose POC Glucometer Serum Osmolality Lactic Acid 0.6 Calcium Phosphorus Magnesium Iron TIBC Iron Saturation Total Bilirubin AST ALT Alkaline Phosphatase Creatine Kinase Troponin I C-Reactive Protein Total Protein Albumin Vitamin B12 TSH Urine Color Urine Appearance Urine pH Ur Specific Welch Urine Protein Urine Glucose (UA) Urine Ketones Urine Blood Urine Nitrite Urine Bilirubin Urine Urobilinogen Ur Leukocyte Esterase Urine WBC (Auto) Urine RBC (Auto) Ur Epithelial Cells Triple Phos Crystals Urine Bacteria Urine Osmolality 417 Vancomycin Pre-Dose Random Vancomycin Carbamazepine Blood Type Antibody Screen Crossmatch 05/04/18 05/04/18 05/04/18 05:30 05:30 05:30 WBC RBC Hgb Hct MCV MCH MCHC RDW Plt Count MPV Absolute Neuts (auto) Neutrophils % Neutrophils % (Manual) Band Neutrophils % Lymphocytes % Lymphocytes % (Manual) Monocytes % Monocytes % (Manual) Eosinophils % Eosinophils % (Manual) Basophils % Basophils % (Manual) Myelocytes % (Man) Promyelocytes % (Man) Blast Cells % (Manual) Nucleated RBC % Metamyelocytes Hypochromia Platelet Estimate Polychromasia Poikilocytosis Basophilic Stippling Anisocytosis Microcytosis Macrocytosis ESR PT with INR INR Sodium 124 L Cancelled Cancelled Potassium 4.8 Cancelled Cancelled Chloride 86 L Cancelled Cancelled Carbon Dioxide 30 Cancelled Cancelled Anion Gap 7 L Cancelled Cancelled BUN 11 Cancelled Cancelled Creatinine 0.3 L Cancelled Cancelled Creat Clearance w eGFR > 60 Cancelled Cancelled Random Glucose 51 L Cancelled Cancelled POC Glucometer Serum Osmolality Cancelled Lactic Acid Calcium 8.1 L Cancelled Cancelled Phosphorus Magnesium Iron TIBC Iron Saturation Total Bilirubin 0.2 Cancelled Cancelled AST 48 H Cancelled Cancelled ALT 62 H Cancelled Cancelled Alkaline Phosphatase 245 H Cancelled Cancelled Creatine Kinase Troponin I C-Reactive Protein 6.1 H Total Protein 7.0 Cancelled Cancelled Albumin 2.6 L Cancelled Cancelled Vitamin B12 TSH Urine Color Urine Appearance Urine pH Ur Specific Welch Urine Protein Urine Glucose (UA) Urine Ketones Urine Blood Urine Nitrite Urine Bilirubin Urine Urobilinogen Ur Leukocyte Esterase Urine WBC (Auto) Urine RBC (Auto) Ur Epithelial Cells Triple Phos Crystals Urine Bacteria Urine Osmolality Vancomycin Pre-Dose Random Vancomycin Carbamazepine Blood Type Antibody Screen Crossmatch 05/04/18 05/04/18 05/05/18 18:30 18:30 07:35 WBC RBC Hgb Hct MCV MCH MCHC RDW Plt Count MPV Absolute Neuts (auto) Neutrophils % Neutrophils % (Manual) Band Neutrophils % Lymphocytes % Lymphocytes % (Manual) Monocytes % Monocytes % (Manual) Eosinophils % Eosinophils % (Manual) Basophils % Basophils % (Manual) Myelocytes % (Man) Promyelocytes % (Man) Blast Cells % (Manual) Nucleated RBC % Metamyelocytes Hypochromia Platelet Estimate Polychromasia Poikilocytosis Basophilic Stippling Anisocytosis Microcytosis Macrocytosis ESR 71 H PT with INR INR Sodium Potassium Chloride Carbon Dioxide Anion Gap BUN Creatinine Creat Clearance w eGFR Random Glucose POC Glucometer Serum Osmolality Lactic Acid Calcium Phosphorus Magnesium Iron 211 H TIBC 230 L Iron Saturation 92 H Total Bilirubin AST ALT Alkaline Phosphatase Creatine Kinase Troponin I C-Reactive Protein Total Protein Albumin Vitamin B12 2508 H TSH Urine Color Urine Appearance Urine pH Ur Specific Welch Urine Protein Urine Glucose (UA) Urine Ketones Urine Blood Urine Nitrite Urine Bilirubin Urine Urobilinogen Ur Leukocyte Esterase Urine WBC (Auto) Urine RBC (Auto) Ur Epithelial Cells Triple Phos Crystals Urine Bacteria Urine Osmolality Vancomycin Pre-Dose Random Vancomycin Carbamazepine Blood Type Antibody Screen Crossmatch 05/05/18 05/05/18 05/06/18 07:35 18:30 01:00 WBC RBC Hgb Hct MCV MCH MCHC RDW Plt Count MPV Absolute Neuts (auto) Neutrophils % Neutrophils % (Manual) Band Neutrophils % Lymphocytes % Lymphocytes % (Manual) Monocytes % Monocytes % (Manual) Eosinophils % Eosinophils % (Manual) Basophils % Basophils % (Manual) Myelocytes % (Man) Promyelocytes % (Man) Blast Cells % (Manual) Nucleated RBC % Metamyelocytes Hypochromia Platelet Estimate Polychromasia Poikilocytosis Basophilic Stippling Anisocytosis Microcytosis Macrocytosis ESR PT with INR INR Sodium 116 L* 117 L* 120 L Potassium 5.2 H 4.7 Chloride 80 L 80 L Carbon Dioxide 27 25 Anion Gap 9 12 BUN 11 15 Creatinine 0.4 L 0.5 L Creat Clearance w eGFR > 60 > 60 Random Glucose 68 L 52 L POC Glucometer Serum Osmolality Lactic Acid Calcium 8.7 9.2 Phosphorus Magnesium Iron TIBC Iron Saturation Total Bilirubin 0.4 0.4 AST 35 34 ALT 50 47 Alkaline Phosphatase 256 H 259 H Creatine Kinase Troponin I C-Reactive Protein Total Protein 7.4 7.8 Albumin 2.6 L 2.8 L Vitamin B12 TSH Urine Color Urine Appearance Urine pH Ur Specific Welch Urine Protein Urine Glucose (UA) Urine Ketones Urine Blood Urine Nitrite Urine Bilirubin Urine Urobilinogen Ur Leukocyte Esterase Urine WBC (Auto) Urine RBC (Auto) Ur Epithelial Cells Triple Phos Crystals Urine Bacteria Urine Osmolality Vancomycin Pre-Dose Random Vancomycin Carbamazepine Blood Type Antibody Screen Crossmatch 05/06/18 05/06/18 05/06/18 05:30 05:30 05:30 WBC 13.0 H RBC 3.38 L Hgb 10.7 Hct 31.3 L MCV 92.5 MCH 31.5 MCHC 34.0 RDW 16.0 H Plt Count 95 L MPV 9.3 Absolute Neuts (auto) 11.9 H Neutrophils % 91.2 H Neutrophils % (Manual) 90.1 H Band Neutrophils % 4.9 Lymphocytes % 5.1 L D Lymphocytes % (Manual) 4.0 L D Monocytes % 3.3 L Monocytes % (Manual) 1 L Eosinophils % 0.1 D Eosinophils % (Manual) 0.0 Basophils % 0.3 Basophils % (Manual) 0.0 Myelocytes % (Man) 0 Promyelocytes % (Man) 0 Blast Cells % (Manual) 0 Nucleated RBC % 0 Metamyelocytes 0 Hypochromia 0 Platelet Estimate Decreased Polychromasia 0 Poikilocytosis 0 Basophilic Stippling 1+ Anisocytosis 1+ Microcytosis 1+ Macrocytosis 0 ESR PT with INR INR Sodium 123 L 122 L Potassium 4.3 Chloride 86 L Carbon Dioxide 26 Anion Gap 11 BUN 21 H Creatinine 0.5 L Creat Clearance w eGFR > 60 Random Glucose 64 L POC Glucometer Serum Osmolality Lactic Acid Calcium 8.8 Phosphorus Magnesium Iron TIBC Iron Saturation Total Bilirubin 0.5 AST 31 ALT 37 Alkaline Phosphatase 228 H Creatine Kinase Troponin I C-Reactive Protein Total Protein 7.1 Albumin 2.5 L Vitamin B12 TSH Urine Color Urine Appearance Urine pH Ur Specific Welch Urine Protein Urine Glucose (UA) Urine Ketones Urine Blood Urine Nitrite Urine Bilirubin Urine Urobilinogen Ur Leukocyte Esterase Urine WBC (Auto) Urine RBC (Auto) Ur Epithelial Cells Triple Phos Crystals Urine Bacteria Urine Osmolality Vancomycin Pre-Dose Random Vancomycin Carbamazepine Blood Type Antibody Screen Crossmatch 05/06/18 05/06/18 05/06/18 12:40 14:30 18:30 WBC RBC Hgb Hct MCV MCH MCHC RDW Plt Count MPV Absolute Neuts (auto) Neutrophils % Neutrophils % (Manual) Band Neutrophils % Lymphocytes % Lymphocytes % (Manual) Monocytes % Monocytes % (Manual) Eosinophils % Eosinophils % (Manual) Basophils % Basophils % (Manual) Myelocytes % (Man) Promyelocytes % (Man) Blast Cells % (Manual) Nucleated RBC % Metamyelocytes Hypochromia Platelet Estimate Polychromasia Poikilocytosis Basophilic Stippling Anisocytosis Microcytosis Macrocytosis ESR PT with INR INR Sodium 127 L 127 L Potassium 4.1 4.0 Chloride 91 L 92 L Carbon Dioxide 27 26 Anion Gap 9 8 BUN 21 H 18 Creatinine 0.4 L 0.5 L Creat Clearance w eGFR > 60 > 60 Random Glucose 65 L 91 POC Glucometer Serum Osmolality Lactic Acid Calcium 8.7 9.2 Phosphorus Magnesium Iron TIBC Iron Saturation Total Bilirubin AST ALT Alkaline Phosphatase Creatine Kinase Troponin I C-Reactive Protein Total Protein Albumin Vitamin B12 TSH Urine Color Yellow Urine Appearance Slcloudy Urine pH 8.0 Ur Specific Welch 1.011 Urine Protein 2+ H Urine Glucose (UA) Negative Urine Ketones 1+ H Urine Blood 1+ H Urine Nitrite Negative Urine Bilirubin Negative Urine Urobilinogen Negative Ur Leukocyte Esterase 2+ H Urine WBC (Auto) 5 Urine RBC (Auto) 1 Ur Epithelial Cells Triple Phos Crystals Rare Urine Bacteria Urine Osmolality Vancomycin Pre-Dose Random Vancomycin Carbamazepine Blood Type Antibody Screen Crossmatch 05/07/18 05/07/18 05/07/18 05:30 05:30 05:30 WBC 13.3 H RBC 3.34 L Hgb 10.4 L Hct 31.2 L MCV 93.4 MCH 31.0 MCHC 33.2 RDW 15.9 H Plt Count 90 L MPV 8.9 Absolute Neuts (auto) Neutrophils % Neutrophils % (Manual) Band Neutrophils % Lymphocytes % Lymphocytes % (Manual) Monocytes % Monocytes % (Manual) Eosinophils % Eosinophils % (Manual) Basophils % Basophils % (Manual) Myelocytes % (Man) Promyelocytes % (Man) Blast Cells % (Manual) Nucleated RBC % Metamyelocytes Hypochromia Platelet Estimate Polychromasia Poikilocytosis Basophilic Stippling Anisocytosis Microcytosis Macrocytosis ESR PT with INR INR Sodium 130 L 131 L Potassium 3.7 Chloride 95 L Carbon Dioxide 27 Anion Gap 8 BUN 13 Creatinine 0.4 L Creat Clearance w eGFR > 60 Random Glucose 88 POC Glucometer Serum Osmolality Lactic Acid Calcium 9.1 Phosphorus 1.6 L Magnesium 1.7 L Iron TIBC Iron Saturation Total Bilirubin 0.4 AST 24 ALT 35 Alkaline Phosphatase 206 H Creatine Kinase Troponin I C-Reactive Protein Total Protein 6.8 Albumin 2.3 L Vitamin B12 TSH Urine Color Urine Appearance Urine pH Ur Specific Welch Urine Protein Urine Glucose (UA) Urine Ketones Urine Blood Urine Nitrite Urine Bilirubin Urine Urobilinogen Ur Leukocyte Esterase Urine WBC (Auto) Urine RBC (Auto) Ur Epithelial Cells Triple Phos Crystals Urine Bacteria Urine Osmolality Vancomycin Pre-Dose Random Vancomycin Carbamazepine Blood Type Antibody Screen Crossmatch 05/08/18 05/08/18 05/09/18 09:20 09:20 07:35 WBC 18.5 H RBC 3.23 L Hgb 10.1 L Hct 30.1 L MCV 93.2 MCH 31.2 MCHC 33.5 RDW 15.9 H Plt Count 116 L D MPV 8.9 Absolute Neuts (auto) Neutrophils % Neutrophils % (Manual) Band Neutrophils % Lymphocytes % Lymphocytes % (Manual) Monocytes % Monocytes % (Manual) Eosinophils % Eosinophils % (Manual) Basophils % Basophils % (Manual) Myelocytes % (Man) Promyelocytes % (Man) Blast Cells % (Manual) Nucleated RBC % Metamyelocytes Hypochromia Platelet Estimate Polychromasia Poikilocytosis Basophilic Stippling Anisocytosis Microcytosis Macrocytosis ESR PT with INR INR Sodium 133 L 132 L Potassium 3.9 3.3 L Chloride 96 L 95 L Carbon Dioxide 30 30 Anion Gap 6 L 7 L BUN 12 15 Creatinine 0.4 L 0.5 L Creat Clearance w eGFR > 60 > 60 Random Glucose 102 102 POC Glucometer Serum Osmolality Lactic Acid Calcium 9.1 9.4 Phosphorus 1.4 L 1.9 L Magnesium 1.8 1.6 L Iron TIBC Iron Saturation Total Bilirubin 0.4 0.7 AST 23 17 ALT 31 23 Alkaline Phosphatase 225 H 210 H Creatine Kinase Troponin I C-Reactive Protein Total Protein 6.7 6.5 Albumin 2.2 L 2.1 L Vitamin B12 TSH Urine Color Urine Appearance Urine pH Ur Specific Welch Urine Protein Urine Glucose (UA) Urine Ketones Urine Blood Urine Nitrite Urine Bilirubin Urine Urobilinogen Ur Leukocyte Esterase Urine WBC (Auto) Urine RBC (Auto) Ur Epithelial Cells Triple Phos Crystals Urine Bacteria Urine Osmolality Vancomycin Pre-Dose Random Vancomycin Carbamazepine Blood Type Antibody Screen Crossmatch 05/09/18 05/09/18 05/10/18 07:35 07:35 07:00 WBC 16.2 H RBC 3.19 L Hgb 10.0 L Hct 29.7 L MCV 93.2 MCH 31.3 MCHC 33.6 RDW 16.1 H Plt Count 135 MPV 8.0 D Absolute Neuts (auto) Neutrophils % Neutrophils % (Manual) Band Neutrophils % Lymphocytes % Lymphocytes % (Manual) Monocytes % Monocytes % (Manual) Eosinophils % Eosinophils % (Manual) Basophils % Basophils % (Manual) Myelocytes % (Man) Promyelocytes % (Man) Blast Cells % (Manual) Nucleated RBC % Metamyelocytes Hypochromia Platelet Estimate Polychromasia Poikilocytosis Basophilic Stippling Anisocytosis Microcytosis Macrocytosis ESR PT with INR INR Sodium 135 L Potassium 3.1 L Chloride 97 L Carbon Dioxide 29 Anion Gap 8 BUN 13 Creatinine 0.4 L Creat Clearance w eGFR > 60 Random Glucose 97 POC Glucometer Serum Osmolality Lactic Acid Calcium 9.0 Phosphorus Cancelled 3.0 Magnesium Cancelled 1.9 Iron TIBC Iron Saturation Total Bilirubin AST ALT Alkaline Phosphatase Creatine Kinase Troponin I C-Reactive Protein Total Protein Albumin Vitamin B12 TSH Urine Color Urine Appearance Urine pH Ur Specific Welch Urine Protein Urine Glucose (UA) Urine Ketones Urine Blood Urine Nitrite Urine Bilirubin Urine Urobilinogen Ur Leukocyte Esterase Urine WBC (Auto) Urine RBC (Auto) Ur Epithelial Cells Triple Phos Crystals Urine Bacteria Urine Osmolality Vancomycin Pre-Dose Random Vancomycin Carbamazepine Blood Type Antibody Screen Crossmatch 05/11/18 05/11/18 05/11/18 01:35 06:20 06:20 WBC 6.8 RBC 2.55 L Hgb 8.1 L Hct 24.0 L D MCV 94.1 MCH 32.0 MCHC 33.9 RDW 15.5 Plt Count 172 D MPV 7.7 Absolute Neuts (auto) Neutrophils % Neutrophils % (Manual) Band Neutrophils % Lymphocytes % Lymphocytes % (Manual) Monocytes % Monocytes % (Manual) Eosinophils % Eosinophils % (Manual) Basophils % Basophils % (Manual) Myelocytes % (Man) Promyelocytes % (Man) Blast Cells % (Manual) Nucleated RBC % Metamyelocytes Hypochromia Platelet Estimate Polychromasia Poikilocytosis Basophilic Stippling Anisocytosis Microcytosis Macrocytosis ESR PT with INR INR Sodium 135 L Potassium 2.9 L* Chloride 97 L Carbon Dioxide 31 Anion Gap 7 L BUN 11 Creatinine 0.4 L Creat Clearance w eGFR > 60 Random Glucose 105 POC Glucometer Serum Osmolality Lactic Acid Calcium 8.7 Phosphorus 3.6 Magnesium 1.6 L Iron TIBC Iron Saturation Total Bilirubin 0.6 AST 26 ALT 35 Alkaline Phosphatase 170 H Creatine Kinase Troponin I C-Reactive Protein Total Protein 7.2 Albumin 2.1 L Vitamin B12 TSH Urine Color Urine Appearance Urine pH Ur Specific Welch Urine Protein Urine Glucose (UA) Urine Ketones Urine Blood Urine Nitrite Urine Bilirubin Urine Urobilinogen Ur Leukocyte Esterase Urine WBC (Auto) Urine RBC (Auto) Ur Epithelial Cells Triple Phos Crystals Urine Bacteria Urine Osmolality Vancomycin Pre-Dose 35.93 H* Random Vancomycin Carbamazepine Blood Type Antibody Screen Crossmatch 05/12/18 05/12/18 05/13/18 16:51 16:51 06:00 WBC 6.5 RBC 2.39 L Hgb 7.7 L Hct 23.1 L MCV 96.5 H MCH 32.0 MCHC 33.2 RDW 16.0 H Plt Count 226 D MPV 8.2 Absolute Neuts (auto) 4.8 Neutrophils % 72.7 D Neutrophils % (Manual) Band Neutrophils % Lymphocytes % 11.6 D Lymphocytes % (Manual) Monocytes % 12.1 H D Monocytes % (Manual) Eosinophils % 3.3 D Eosinophils % (Manual) Basophils % 0.3 Basophils % (Manual) Myelocytes % (Man) Promyelocytes % (Man) Blast Cells % (Manual) Nucleated RBC % 0 Metamyelocytes Hypochromia Platelet Estimate Polychromasia Poikilocytosis Basophilic Stippling Anisocytosis Microcytosis Macrocytosis ESR PT with INR INR Sodium 142 Potassium 3.5 Chloride 104 Carbon Dioxide 30 Anion Gap 7 L BUN 11 Creatinine 0.5 L Creat Clearance w eGFR > 60 Random Glucose 104 POC Glucometer Serum Osmolality Lactic Acid Calcium 8.2 L Phosphorus 3.1 Magnesium 1.7 L Iron TIBC Iron Saturation Total Bilirubin 0.4 AST 43 H ALT 42 Alkaline Phosphatase 166 H Creatine Kinase Troponin I C-Reactive Protein Total Protein 7.0 Albumin 1.9 L Vitamin B12 TSH Urine Color Urine Appearance Urine pH Ur Specific Welch Urine Protein Urine Glucose (UA) Urine Ketones Urine Blood Urine Nitrite Urine Bilirubin Urine Urobilinogen Ur Leukocyte Esterase Urine WBC (Auto) Urine RBC (Auto) Ur Epithelial Cells Triple Phos Crystals Urine Bacteria Urine Osmolality Vancomycin Pre-Dose Random Vancomycin 6.9 L Carbamazepine Blood Type Antibody Screen Crossmatch 05/13/18 05/13/18 05/13/18 06:00 06:00 06:10 WBC 5.1 RBC 2.26 L Hgb 7.3 L Hct 21.5 L MCV 95.4 MCH 32.5 MCHC 34.1 RDW 15.5 Plt Count 255 MPV 7.9 Absolute Neuts (auto) 3.7 Neutrophils % 71.2 Neutrophils % (Manual) Band Neutrophils % Lymphocytes % 14.0 D Lymphocytes % (Manual) Monocytes % 11.6 H Monocytes % (Manual) Eosinophils % 2.9 Eosinophils % (Manual) Basophils % 0.3 Basophils % (Manual) Myelocytes % (Man) Promyelocytes % (Man) Blast Cells % (Manual) Nucleated RBC % 0 Metamyelocytes Hypochromia Platelet Estimate Polychromasia Poikilocytosis Basophilic Stippling Anisocytosis Microcytosis Macrocytosis ESR PT with INR INR Sodium 140 Potassium 3.4 L Chloride 104 Carbon Dioxide 34 H Anion Gap 2 L BUN 11 Creatinine 0.4 L Creat Clearance w eGFR > 60 Random Glucose 116 H POC Glucometer Serum Osmolality Lactic Acid Calcium 8.1 L Phosphorus Magnesium 1.9 Iron TIBC Iron Saturation Total Bilirubin 0.5 AST 30 ALT 37 Alkaline Phosphatase 144 H Creatine Kinase Troponin I C-Reactive Protein Total Protein 5.9 L Albumin 1.8 L Vitamin B12 TSH Urine Color Urine Appearance Urine pH Ur Specific Welch Urine Protein Urine Glucose (UA) Urine Ketones Urine Blood Urine Nitrite Urine Bilirubin Urine Urobilinogen Ur Leukocyte Esterase Urine WBC (Auto) Urine RBC (Auto) Ur Epithelial Cells Triple Phos Crystals Urine Bacteria Urine Osmolality Vancomycin Pre-Dose Random Vancomycin Carbamazepine Blood Type O POSITIVE Antibody Screen Negative Crossmatch See Detail 05/13/18 05/14/18 05/14/18 08:54 08:00 08:00 WBC 6.2 RBC 2.64 L Hgb 8.2 L Hct 24.7 L MCV 93.7 MCH 31.1 MCHC 33.2 RDW 16.3 H Plt Count 304 MPV 7.7 Absolute Neuts (auto) 4.4 Neutrophils % 71.7 Neutrophils % (Manual) Band Neutrophils % Lymphocytes % 14.6 Lymphocytes % (Manual) Monocytes % 10.4 H Monocytes % (Manual) Eosinophils % 3.1 Eosinophils % (Manual) Basophils % 0.2 Basophils % (Manual) Myelocytes % (Man) Promyelocytes % (Man) Blast Cells % (Manual) Nucleated RBC % 0 Metamyelocytes Hypochromia Platelet Estimate Polychromasia Poikilocytosis Basophilic Stippling Anisocytosis Microcytosis Macrocytosis ESR PT with INR INR Sodium 140 Potassium 4.3 Chloride 102 Carbon Dioxide 36 H Anion Gap 2 L BUN 12 Creatinine 0.6 Creat Clearance w eGFR > 60 Random Glucose 100 POC Glucometer Serum Osmolality Lactic Acid Calcium 8.5 Phosphorus Magnesium 2.1 Iron TIBC Iron Saturation Total Bilirubin 0.4 AST 18 ALT 27 Alkaline Phosphatase 150 H Creatine Kinase Troponin I C-Reactive Protein Total Protein 6.4 Albumin 2.0 L Vitamin B12 TSH Urine Color Urine Appearance Urine pH Ur Specific Welch Urine Protein Urine Glucose (UA) Urine Ketones Urine Blood Urine Nitrite Urine Bilirubin Urine Urobilinogen Ur Leukocyte Esterase Urine WBC (Auto) Urine RBC (Auto) Ur Epithelial Cells Triple Phos Crystals Urine Bacteria Urine Osmolality Vancomycin Pre-Dose Random Vancomycin Carbamazepine Blood Type O POSITIVE Antibody Screen Crossmatch 05/15/18 05/15/18 05/16/18 06:10 06:10 07:15 WBC 7.2 6.9 RBC 3.30 L 2.99 L Hgb 10.4 L 9.5 L Hct 30.1 L D 27.6 L MCV 91.3 92.6 MCH 31.4 31.8 MCHC 34.4 34.4 RDW 17.2 H 16.6 H Plt Count 356 367 MPV 7.4 L 7.7 Absolute Neuts (auto) 5.5 5.3 Neutrophils % 76.2 76.4 Neutrophils % (Manual) Band Neutrophils % Lymphocytes % 10.2 D 10.9 Lymphocytes % (Manual) Monocytes % 9.8 9.8 Monocytes % (Manual) Eosinophils % 3.3 2.4 Eosinophils % (Manual) Basophils % 0.5 0.5 Basophils % (Manual) Myelocytes % (Man) Promyelocytes % (Man) Blast Cells % (Manual) Nucleated RBC % 0 0 Metamyelocytes Hypochromia Platelet Estimate Polychromasia Poikilocytosis Basophilic Stippling Anisocytosis Microcytosis Macrocytosis ESR PT with INR INR Sodium 137 Potassium 4.2 Chloride 96 L Carbon Dioxide 38 H Anion Gap 3 L BUN 13 Creatinine 0.7 Creat Clearance w eGFR > 60 Random Glucose 137 H POC Glucometer Serum Osmolality Lactic Acid Calcium 8.8 Phosphorus Magnesium Iron TIBC Iron Saturation Total Bilirubin 0.4 AST < 3 L ALT 36 Alkaline Phosphatase 155 H Creatine Kinase Troponin I C-Reactive Protein Total Protein 6.9 Albumin 2.0 L Vitamin B12 TSH Urine Color Urine Appearance Urine pH Ur Specific Welch Urine Protein Urine Glucose (UA) Urine Ketones Urine Blood Urine Nitrite Urine Bilirubin Urine Urobilinogen Ur Leukocyte Esterase Urine WBC (Auto) Urine RBC (Auto) Ur Epithelial Cells Triple Phos Crystals Urine Bacteria Urine Osmolality Vancomycin Pre-Dose Random Vancomycin Carbamazepine Blood Type Antibody Screen Crossmatch 05/16/18 05/17/18 05/18/18 07:15 08:40 06:00 WBC 5.0 RBC 2.73 L Hgb 8.8 L Hct 25.6 L MCV 93.8 MCH 32.2 MCHC 34.3 RDW 15.9 H Plt Count 337 MPV 8.6 D Absolute Neuts (auto) Neutrophils % Neutrophils % (Manual) Band Neutrophils % Lymphocytes % Lymphocytes % (Manual) Monocytes % Monocytes % (Manual) Eosinophils % Eosinophils % (Manual) Basophils % Basophils % (Manual) Myelocytes % (Man) Promyelocytes % (Man) Blast Cells % (Manual) Nucleated RBC % Metamyelocytes Hypochromia Platelet Estimate Polychromasia Poikilocytosis Basophilic Stippling Anisocytosis Microcytosis Macrocytosis ESR PT with INR INR Sodium 140 138 Potassium 4.4 4.3 Chloride 98 98 Carbon Dioxide 36 H 34 H Anion Gap 6 L 6 L BUN 21 H 22 H Creatinine 0.7 0.6 Creat Clearance w eGFR > 60 > 60 Random Glucose 125 H 85 POC Glucometer Serum Osmolality Lactic Acid Calcium 8.3 L 8.2 L Phosphorus Magnesium 2.3 Iron TIBC Iron Saturation Total Bilirubin 0.3 0.3 AST 14 L 16 ALT 21 20 Alkaline Phosphatase 136 H 135 H Creatine Kinase Troponin I C-Reactive Protein Total Protein 6.6 6.7 Albumin 2.0 L 2.0 L Vitamin B12 TSH Urine Color Urine Appearance Urine pH Ur Specific Welch Urine Protein Urine Glucose (UA) Urine Ketones Urine Blood Urine Nitrite Urine Bilirubin Urine Urobilinogen Ur Leukocyte Esterase Urine WBC (Auto) Urine RBC (Auto) Ur Epithelial Cells Triple Phos Crystals Urine Bacteria Urine Osmolality Vancomycin Pre-Dose Random Vancomycin Carbamazepine Blood Type Antibody Screen Crossmatch 05/18/18 05/18/18 05/18/18 06:00 06:00 14:00 WBC RBC Hgb Hct MCV MCH MCHC RDW Plt Count MPV Absolute Neuts (auto) Neutrophils % Neutrophils % (Manual) Band Neutrophils % Lymphocytes % Lymphocytes % (Manual) Monocytes % Monocytes % (Manual) Eosinophils % Eosinophils % (Manual) Basophils % Basophils % (Manual) Myelocytes % (Man) Promyelocytes % (Man) Blast Cells % (Manual) Nucleated RBC % Metamyelocytes Hypochromia Platelet Estimate Polychromasia Poikilocytosis Basophilic Stippling Anisocytosis Microcytosis Macrocytosis ESR PT with INR INR Sodium 137 Potassium 4.2 Chloride 99 Carbon Dioxide 33 H Anion Gap 5 L BUN 23 H Creatinine 0.5 L Creat Clearance w eGFR > 60 Random Glucose 103 POC Glucometer Serum Osmolality Lactic Acid Calcium 8.0 L Phosphorus Magnesium Iron TIBC Iron Saturation Total Bilirubin 0.4 AST 15 ALT 19 Alkaline Phosphatase 121 H Creatine Kinase Troponin I C-Reactive Protein Total Protein 6.3 L Albumin 1.8 L Vitamin B12 TSH Urine Color Urine Appearance Urine pH Ur Specific Welch Urine Protein Urine Glucose (UA) Urine Ketones Urine Blood Urine Nitrite Urine Bilirubin Urine Urobilinogen Ur Leukocyte Esterase Urine WBC (Auto) Urine RBC (Auto) Ur Epithelial Cells Triple Phos Crystals Urine Bacteria Urine Osmolality Vancomycin Pre-Dose 15.6 L Random Vancomycin Carbamazepine 3.3 Blood Type Antibody Screen Crossmatch 05/20/18 05/20/18 05/20/18 06:00 06:00 09:25 WBC 4.3 4.7 RBC 2.89 L 3.06 L Hgb 9.1 L 9.5 L Hct 26.9 L 28.7 L MCV 93.0 93.9 MCH 31.6 31.0 MCHC 34.0 33.0 RDW 15.4 15.7 H Plt Count 407 D 390 MPV 7.9 8.4 Absolute Neuts (auto) 3.4 Neutrophils % 72.2 Neutrophils % (Manual) Band Neutrophils % Lymphocytes % 14.5 D Lymphocytes % (Manual) Monocytes % 9.5 Monocytes % (Manual) Eosinophils % 2.6 Eosinophils % (Manual) Basophils % 1.2 Basophils % (Manual) Myelocytes % (Man) Promyelocytes % (Man) Blast Cells % (Manual) Nucleated RBC % 0 Metamyelocytes Hypochromia Platelet Estimate Polychromasia Poikilocytosis Basophilic Stippling Anisocytosis Microcytosis Macrocytosis ESR PT with INR INR Sodium 137 Potassium 4.5 Chloride 103 Carbon Dioxide 32 Anion Gap 2 L BUN 19 H Creatinine 0.6 Creat Clearance w eGFR 104.18 Random Glucose 118 H POC Glucometer Serum Osmolality Lactic Acid Calcium 8.2 L Phosphorus 3.6 Magnesium 2.5 H Iron TIBC Iron Saturation Total Bilirubin 0.2 AST 14 L ALT 17 Alkaline Phosphatase 143 H Creatine Kinase Troponin I C-Reactive Protein Total Protein 7.1 Albumin 2.0 L Vitamin B12 TSH Urine Color Urine Appearance Urine pH Ur Specific Welch Urine Protein Urine Glucose (UA) Urine Ketones Urine Blood Urine Nitrite Urine Bilirubin Urine Urobilinogen Ur Leukocyte Esterase Urine WBC (Auto) Urine RBC (Auto) Ur Epithelial Cells Triple Phos Crystals Urine Bacteria Urine Osmolality Vancomycin Pre-Dose Random Vancomycin Carbamazepine Blood Type Antibody Screen Crossmatch 05/20/18 05/21/18 05/21/18 14:15 07:15 07:15 WBC 4.9 RBC 2.77 L Hgb 8.9 L Hct 26.0 L MCV 93.8 MCH 32.1 MCHC 34.2 RDW 15.4 Plt Count 413 MPV 8.8 Absolute Neuts (auto) 3.5 Neutrophils % 70.1 Neutrophils % (Manual) Band Neutrophils % Lymphocytes % 15.5 Lymphocytes % (Manual) Monocytes % 10.7 H Monocytes % (Manual) Eosinophils % 3.1 Eosinophils % (Manual) Basophils % 0.6 Basophils % (Manual) Myelocytes % (Man) Promyelocytes % (Man) Blast Cells % (Manual) Nucleated RBC % 0 Metamyelocytes Hypochromia Platelet Estimate Polychromasia Poikilocytosis Basophilic Stippling Anisocytosis Microcytosis Macrocytosis ESR PT with INR 13.60 H INR 1.15 H Sodium 138 Potassium 4.9 Chloride 102 Carbon Dioxide 30 Anion Gap 5 L BUN 19 H Creatinine 0.6 Creat Clearance w eGFR 104.18 Random Glucose 122 H POC Glucometer Serum Osmolality Lactic Acid Calcium 8.2 L Phosphorus 3.4 Magnesium 2.1 Iron TIBC Iron Saturation Total Bilirubin 0.3 AST 13 L ALT 15 Alkaline Phosphatase 142 H Creatine Kinase Troponin I C-Reactive Protein Total Protein 7.1 Albumin 2.0 L Vitamin B12 TSH Urine Color Urine Appearance Urine pH Ur Specific Welch Urine Protein Urine Glucose (UA) Urine Ketones Urine Blood Urine Nitrite Urine Bilirubin Urine Urobilinogen Ur Leukocyte Esterase Urine WBC (Auto) Urine RBC (Auto) Ur Epithelial Cells Triple Phos Crystals Urine Bacteria Urine Osmolality Vancomycin Pre-Dose Random Vancomycin Carbamazepine Blood Type Antibody Screen Crossmatch 05/23/18 05/23/18 05/24/18 05:30 05:30 06:05 WBC 5.6 5.5 RBC 2.98 L 2.95 L Hgb 9.7 L 9.3 L Hct 27.8 L 27.6 L MCV 93.1 93.3 MCH 32.4 31.4 MCHC 34.8 33.7 RDW 15.6 15.3 Plt Count 414 423 MPV 8.8 8.9 Absolute Neuts (auto) 3.8 3.9 Neutrophils % 67.8 70.9 Neutrophils % (Manual) Band Neutrophils % Lymphocytes % 17.3 16.5 Lymphocytes % (Manual) Monocytes % 10.5 H 8.3 Monocytes % (Manual) Eosinophils % 3.5 3.5 Eosinophils % (Manual) Basophils % 0.9 0.8 Basophils % (Manual) Myelocytes % (Man) Promyelocytes % (Man) Blast Cells % (Manual) Nucleated RBC % 0 0 Metamyelocytes Hypochromia Platelet Estimate Polychromasia Poikilocytosis Basophilic Stippling Anisocytosis Microcytosis Macrocytosis ESR PT with INR INR Sodium 136 Potassium 4.4 Chloride 100 Carbon Dioxide 31 Anion Gap 5 L BUN 20 H Creatinine 0.5 L Creat Clearance w eGFR 128.57 Random Glucose 89 POC Glucometer Serum Osmolality Lactic Acid Calcium 8.2 L Phosphorus Magnesium Iron TIBC Iron Saturation Total Bilirubin 0.4 AST 14 L ALT 15 Alkaline Phosphatase 140 H Creatine Kinase Troponin I C-Reactive Protein Total Protein 7.6 Albumin 2.2 L Vitamin B12 TSH Urine Color Urine Appearance Urine pH Ur Specific Welch Urine Protein Urine Glucose (UA) Urine Ketones Urine Blood Urine Nitrite Urine Bilirubin Urine Urobilinogen Ur Leukocyte Esterase Urine WBC (Auto) Urine RBC (Auto) Ur Epithelial Cells Triple Phos Crystals Urine Bacteria Urine Osmolality Vancomycin Pre-Dose Random Vancomycin Carbamazepine Blood Type Antibody Screen Crossmatch 05/24/18 05/25/18 05/25/18 06:05 06:10 06:10 WBC 6.2 RBC 3.05 L Hgb 9.6 L Hct 28.6 L MCV 93.5 MCH 31.5 MCHC 33.7 RDW 15.4 Plt Count 446 H MPV 8.7 Absolute Neuts (auto) 4.6 Neutrophils % 74.8 Neutrophils % (Manual) Band Neutrophils % Lymphocytes % 13.9 Lymphocytes % (Manual) Monocytes % 7.2 Monocytes % (Manual) Eosinophils % 3.3 Eosinophils % (Manual) Basophils % 0.8 Basophils % (Manual) Myelocytes % (Man) Promyelocytes % (Man) Blast Cells % (Manual) Nucleated RBC % 0 Metamyelocytes Hypochromia Platelet Estimate Polychromasia Poikilocytosis Basophilic Stippling Anisocytosis Microcytosis Macrocytosis ESR PT with INR INR Sodium 136 139 Potassium 4.2 4.3 Chloride 101 103 Carbon Dioxide 27 26 Anion Gap 8 10 BUN 18 18 Creatinine 0.5 L 0.5 L Creat Clearance w eGFR 128.57 128.57 Random Glucose 73 L 56 L POC Glucometer Serum Osmolality Lactic Acid Calcium 8.5 8.9 Phosphorus Magnesium Iron TIBC Iron Saturation Total Bilirubin 0.4 0.5 AST 12 L 13 L ALT 14 13 Alkaline Phosphatase 139 H 139 H Creatine Kinase Troponin I C-Reactive Protein Total Protein 7.6 7.9 Albumin 2.2 L 2.3 L Vitamin B12 TSH Urine Color Urine Appearance Urine pH Ur Specific Welch Urine Protein Urine Glucose (UA) Urine Ketones Urine Blood Urine Nitrite Urine Bilirubin Urine Urobilinogen Ur Leukocyte Esterase Urine WBC (Auto) Urine RBC (Auto) Ur Epithelial Cells Triple Phos Crystals Urine Bacteria Urine Osmolality Vancomycin Pre-Dose Random Vancomycin Carbamazepine Blood Type Antibody Screen Crossmatch 05/25/18 05/26/18 05/26/18 12:09 06:30 06:30 WBC 7.6 RBC 3.09 L Hgb 9.7 L Hct 28.6 L MCV 92.7 MCH 31.4 MCHC 33.8 RDW 15.2 Plt Count 448 H MPV 8.5 Absolute Neuts (auto) 5.4 Neutrophils % 71.1 Neutrophils % (Manual) Band Neutrophils % Lymphocytes % 13.4 Lymphocytes % (Manual) Monocytes % 11.0 H Monocytes % (Manual) Eosinophils % 3.8 Eosinophils % (Manual) Basophils % 0.7 Basophils % (Manual) Myelocytes % (Man) Promyelocytes % (Man) Blast Cells % (Manual) Nucleated RBC % 0 Metamyelocytes Hypochromia Platelet Estimate Polychromasia Poikilocytosis Basophilic Stippling Anisocytosis Microcytosis Macrocytosis ESR PT with INR INR Sodium 140 Potassium 4.0 Chloride 105 Carbon Dioxide 32 Anion Gap 4 L BUN 20 H Creatinine 0.5 L Creat Clearance w eGFR 128.57 Random Glucose 154 H POC Glucometer 114 Serum Osmolality Lactic Acid Calcium 8.8 Phosphorus Magnesium Iron TIBC Iron Saturation Total Bilirubin 0.2 AST 12 L ALT 13 Alkaline Phosphatase 142 H Creatine Kinase Troponin I C-Reactive Protein Total Protein 7.8 Albumin 2.2 L Vitamin B12 TSH Urine Color Urine Appearance Urine pH Ur Specific Welch Urine Protein Urine Glucose (UA) Urine Ketones Urine Blood Urine Nitrite Urine Bilirubin Urine Urobilinogen Ur Leukocyte Esterase Urine WBC (Auto) Urine RBC (Auto) Ur Epithelial Cells Triple Phos Crystals Urine Bacteria Urine Osmolality Vancomycin Pre-Dose Random Vancomycin Carbamazepine Blood Type Antibody Screen Crossmatch 05/27/18 05/27/18 06:00 06:00 WBC 6.7 RBC 3.03 L Hgb 9.5 L Hct 28.1 L MCV 92.5 MCH 31.5 MCHC 34.0 RDW 15.4 Plt Count 406 MPV 8.4 Absolute Neuts (auto) Neutrophils % Neutrophils % (Manual) Band Neutrophils % Lymphocytes % Lymphocytes % (Manual) Monocytes % Monocytes % (Manual) Eosinophils % Eosinophils % (Manual) Basophils % Basophils % (Manual) Myelocytes % (Man) Promyelocytes % (Man) Blast Cells % (Manual) Nucleated RBC % Metamyelocytes Hypochromia Platelet Estimate Polychromasia Poikilocytosis Basophilic Stippling Anisocytosis Microcytosis Macrocytosis ESR PT with INR INR Sodium 140 Potassium 3.9 Chloride 105 Carbon Dioxide 32 Anion Gap 4 L BUN 25 H Creatinine 0.4 L Creat Clearance w eGFR 166.34 Random Glucose 145 H POC Glucometer Serum Osmolality Lactic Acid Calcium 8.6 Phosphorus Magnesium Iron TIBC Iron Saturation Total Bilirubin 0.2 AST 11 L ALT 13 Alkaline Phosphatase 138 H Creatine Kinase Troponin I C-Reactive Protein Total Protein 7.7 Albumin 2.2 L Vitamin B12 TSH Urine Color Urine Appearance Urine pH Ur Specific Welch Urine Protein Urine Glucose (UA) Urine Ketones Urine Blood Urine Nitrite Urine Bilirubin Urine Urobilinogen Ur Leukocyte Esterase Urine WBC (Auto) Urine RBC (Auto) Ur Epithelial Cells Triple Phos Crystals Urine Bacteria Urine Osmolality Vancomycin Pre-Dose Random Vancomycin Carbamazepine Blood Type Antibody Screen Crossmatch Active Medications Generic Name Dose Route Start Last Admin Trade Name Freq PRN Reason Stop Dose Admin Acetaminophen 650 mg 05/11/18 20:31 05/26/18 13:39 Tylenol Oral Solution - NGT 650 mg Q6H PRN Administration FEVER Albuterol/Ipratropium 1 amp 05/25/18 19:18 05/27/18 07:58 Duoneb - NEB 1 amp Q6H PRN Administration SHORT OF BREATH/WHEEZING Amino Acids 30 ml 05/25/18 17:30 05/27/18 09:52 Prosource No Carb Liquid Pkt PEG 30 ml BID@0800,1730 CATHERINE Administration Ascorbic Acid 500 mg 05/12/18 10:00 05/27/18 09:53 Vitamin C Oral Solution - NGT 500 mg DAILY CATHERINE Administration Bacitracin 1 applic 05/07/18 22:00 05/27/18 09:51 Bacitracin - TP 1 applic BID CATHERINE Administration Carbamazepine 100 mg 05/23/18 22:00 05/27/18 05:42 Tegretol Oral Suspension - NGT 100 mg TID CATHERINE Administration Clonazepam 0.5 mg 05/25/18 22:00 05/26/18 21:04 Klonopin - NGT 0.5 mg HS CATHERINE Administration Collagenase 1 applic 05/08/18 10:00 05/26/18 10:19 Santyl - TP 1 applic DAILY CATHERINE Administration Protocol Cyanocobalamin 1,000 mcg 05/12/18 10:00 05/27/18 09:50 Vitamin B12 - NGT 1,000 mcg DAILY CATHERINE Administration Ferrous Sulfate 300 mg 05/12/18 10:00 05/27/18 09:50 Feosol NGT 300 mg DAILY CATHERINE Administration Folic Acid 1 mg 05/12/18 10:00 05/27/18 09:52 Folic Acid - NGT 1 mg DAILY CATHERINE Administration Hydralazine HCl 50 mg 05/17/18 21:46 05/27/18 05:41 Apresoline - NGT 50 mg TID CATHERINE Administration Lactobacillus Acidophilus 1 tab 05/11/18 22:00 05/27/18 09:50 Bacid - NGT 1 tab BID CATHERINE Administration Levothyroxine Sodium 100 mcg 05/14/18 07:00 05/27/18 06:29 Synthroid - NGT 100 mcg DAILY@0700 CATHERINE Administration Loratadine 10 mg 05/12/18 10:00 05/27/18 09:50 Claritin - NGT 10 mg DAILY CATHERINE Administration Metoprolol Tartrate 50 mg 05/11/18 22:00 05/27/18 09:50 Lopressor - NGT 50 mg BID CATHERINE Administration Mirtazapine 7.5 mg 05/11/18 22:00 05/26/18 21:04 Remeron - NGT 7.5 mg HS CATHERINE Administration Nystatin/Triamcinolone Acetonide 1 applic 05/07/18 22:00 05/26/18 21:04 Mycolog Ii Ointment - TP 1 applic BID CATHERINE Administration Pantoprazole Sodium 40 mg 05/07/18 22:00 05/27/18 09:53 Protonix Iv IVPUSH 40 mg BID CATHERINE Administration Potassium Phos/Sodium Phos 1 packet 05/12/18 10:00 05/27/18 09:53 Phos-Nak Packet - NGT 1 packet DAILY CATHERINE Administration Sertraline HCl 50 mg 05/12/18 10:00 05/27/18 09:50 Zoloft - NGT 50 mg DAILY CATHERINE Administration Sodium Chloride 1 gm 05/14/18 10:00 05/27/18 09:50 Sodium Chloride Tablet - NGT 1 gm DAILY CATHERINE Administration Vancomycin HCl 125 mg 05/16/18 12:00 05/27/18 05:43 Vancomycin Oral Solution NGT 125 mg Q6HPO CATHERINE Administration Zinc Sulfate 220 mg 05/12/18 10:00 05/27/18 09:50 Orazinc - NGT 220 mg DAILY CATHERINE Administration Microbiology 05/14/18 12:00 Stool Clostridioides difficile Antigen - Final 05/14/18 12:00 Stool Clostridioides difficile Toxin Assay - Final 05/08/18 17:00 Blood - Peripheral Venous Blood Culture - Final NO GROWTH AFTER 5 DAYS INCUBATION 05/08/18 17:00 Blood - Peripheral Venous Blood Culture - Final NO GROWTH AFTER 5 DAYS INCUBATION 05/06/18 11:20 Blood - Peripheral Venous Blood Culture - Final NO GROWTH AFTER 5 DAYS INCUBATION 05/06/18 11:38 Blood - Peripheral Venous Blood Culture - Final NO GROWTH AFTER 5 DAYS INCUBATION 05/06/18 18:30 Sputum - Endotrachea Suction/Ventilator Gram Stain - Final 05/06/18 18:30 Sputum - Endotrachea Suction/Ventilator Sputum Culture - Final Pseudomonas Aeruginosa Serratia Marcescens Mr S Aureus 05/08/18 19:00 Urine - Urine Raza Legionella Antigen - Final 05/08/18 19:00 Urine - Urine Raza Streptococcus pneumoniae Antigen (M - Final 05/03/18 17:40 Blood - Peripheral Venous Blood Culture - Final NO GROWTH AFTER 5 DAYS INCUBATION 05/03/18 17:40 Blood - Peripheral Venous Blood Culture - Final NO GROWTH AFTER 5 DAYS INCUBATION 05/06/18 14:30 Urine - Urine Raza Urine Culture - Final Contaminated: Please Repeat 05/03/18 17:40 Urine - Urine Clean Catch Urine Culture - Final Contaminated: Please Repeat Condition: Stable - Instructions Diet, Activity, Other Instructions: Please return to the emergency department with any new or worsening symptoms or concerns. Please follow up with your primary care physician within 72 hours. Patient should follow up with neurology Dr. Conroy return to ER if develop fever, chest pain, respiratory distress, change in mental status. Referrals: Anne Lopez MD [Primary Care Provider] - Disposition: HOME - Home Medications Comprehensive Discharge Medication List: Ambulatory Orders Levothyroxine [Synthroid -] 100 mcg PO DAILY@0700 #30 tablet 06/24/16 Carbamazepine 200 mg PO TID 01/03/18 Loratadine 10 mg PO DAILY 01/03/18 Sertraline HCl 50 mg PO DAILY 01/03/18 Albuterol 2.5/Ipratropium 0.5 [Duoneb -] 1 amp NEB RQID #120 amp 03/15/18 Ascorbic Acid [Vitamin C -] 500 mg PO DAILY #30 tablet 03/15/18 Collagenase Clostridium Hist. [Santyl -] 1 applic TP DAILY #2 tube 03/15/18 Ferrous Sulfate [Feosol] 325 mg PO DAILY #30 tablet 03/15/18 Folic Acid - 1 mg PO DAILY #30 tablet 03/15/18 Lactobacillus Acidophilus [Bacid -] 1 tab PO BID #0 tab 03/15/18 Mirtazapine [Remeron -] 7.5 mg PO HS #30 tablet 03/15/18 Pantoprazole Sodium [Protonix -] 40 mg PO BID tablet.ec 03/15/18 Cyanocobalamin [Vitamin B12 -] 1,000 mcg PO DAILY 05/03/18 Hydralazine HCl 50 mg PO TID 05/03/18 Melatonin 2 mg PO HS 05/03/18 Metoprolol Succinate [Toprol Xl] 50 mg PO BID 05/03/18 Multivitamin [Multiple Vitamins] 1 each PO DAILY 05/03/18 Potassium Chloride [K-Dur -] 20 meq PO DAILY 05/03/18 Zinc 50 mg PO DAILY 05/03/18
[2018-05-27] MEDS: NYSTATIN/TRIAMCINOLONE TOPICAL OINTMENT 15 GM TUBE TP SCH ×2 (14:10→23:31)
--- NOTE | 2018-05-27 16:31 | PN ---
Progress Note (short form) - Note Progress Note: PULMONARY Trach collar during day/vent at night and during care VSS/AFEBRILE Gen: awake/offers no complaints Heart: RRR Lung: decreased breath sounds at the bases Abd: soft, nontender Ext: no edema Active Medications noted A/P Chronic Respiratory Failure Pneumonia likely Aspiration treated +C Diff Ag Multiple Sclerosis Functional Quadriplegia Hyponatremia resolved HTN Hypothyroidism Depression - anticipate AM discharge to home - inhaled bronchodilators - aspiration precautions - enteral feeds - DVT/GI prophylaxis Chris TINEO MD
--- NOTE | 2018-05-27 19:31 | PN ---
Progress Note (short form) - Note Progress Note: NEUROLOGY PROGRESS: Events reviewed and discussed with RN, mother at bedside. Pt notes some facial pain but her principle complaint is a parched, dry mouth. Tegertol level =3.3ug% Awake, alert. Ox3. Fluent through talking trache. Swallowing water without difficulty. Full EOM's. No limb mov'ts. IMP: Advanced MS Dysphagia, s/p PEG Trigeminal neuralgia. SUGGEST: Increase Tegretol elixor to 200 mg q8h Watch out for end of dose breakthrough pain since CBZ sustention is NOT controlled release and may not last 8 hrs. Pt and mother now aware that PEG does NOT PRECLUDE oral hydration and nutrition. Stable for D/C to home in AM. Thank you very much, Rom Conroy MD
[2018-05-27] MEDS: MIRTAZAPINE 15 MG TABLET (FP) NGT SCH (23:29)
[2018-05-27] MEDS: clonazePAM 0.5 MG TABLET NGT SCH (23:29)
[2018-05-27] MEDS: carBAMazepine 200 MG/10 ML UNIT-DOSE CUP PEG SCH ×2 (23:30→23:31)
[2018-05-28 06:51] VITALS: BP 151/69; PULSE 98; TEMP 98.3
[2018-05-28] MEDS: LEVOTHYROXINE NA 100 MCG TABLET (FP) NGT SCH (06:51)
[2018-05-28] MEDS: hydrALAZINE HCL 50 MG TABLET (FP) NGT SCH ×2 (06:51→13:00)
[2018-05-28] MEDS: carBAMazepine 200 MG/10 ML UNIT-DOSE CUP PEG SCH ×2 (06:51→13:00)
[2018-05-28] MEDS: VANCOMYCIN 250 MG/5 ML ORAL SOLUTION NGT SCH ×2 (06:52→13:00)
[2018-05-28] MEDS ORDERED: PT OWN MED DRAWER 7, Y5N ONE (09:35)
[2018-05-28] MEDS: SERTRALINE HCL 50 MG TABLET (FP) NGT SCH (09:37)
[2018-05-28] MEDS: LACTOBACILLUS ACIDOPHILUS 1 TABLET NGT SCH (09:37)
[2018-05-28] MEDS: FOLIC ACID 1 MG TABLET (FP) NGT SCH (09:37)
[2018-05-28] MEDS: LORATADINE 10 MG TABLET NGT SCH (09:37)
[2018-05-28] MEDS: METOPROLOL TARTRATE 50 MG TABLET (FP) NGT SCH (09:37)
[2018-05-28] MEDS: ZINC SULFATE 220 MG CAPSULE (FP) NGT SCH (09:37)
[2018-05-28] MEDS: CYANOCOBALAMIN 1,000 MCG TABLET (FP) NGT SCH (09:37)
[2018-05-28] MEDS: SODIUM CHLORIDE 1 GM TABLET NGT SCH (09:38)
[2018-05-28] MEDS: FERROUS SO4 300 MG/5 ML ORAL SOLN UNIT DOSE CUPS NGT SCH (09:38)
[2018-05-28] MEDS: NAPH,MB-DB/K PH,MBDB POWDER PACKET NGT SCH (09:38)
[2018-05-28] MEDS: MULTIVIT-MINERALS ORAL LIQUID NGT SCH (09:38)
[2018-05-28] MEDS: BACITRACIN 15 GM TUBE TOPICAL OINTMENT TP SCH (09:38)
[2018-05-28] MEDS: AMINO ACIDS/PROTEIN HYDROLYS 30 ML LIQUID.PKT PEG SCH (09:38)
[2018-05-28] MEDS: ASCORBIC ACID 500 MG/5 ML UNIT DOSE CUP NGT SCH (09:38)
[2018-05-28] MEDS: PANTOPRAZOLE SODIUM 40 MG VIAL IVPUSH SCH (09:39)
[2018-05-28] MEDS: NYSTATIN/TRIAMCINOLONE TOPICAL OINTMENT 15 GM TUBE TP SCH (09:39)
[2018-05-28] MEDS: COLLAGENASE CLOSTRIDIUM HIST. 30 GRAMS TUBE TP SCH (09:39)
--- NOTE | 2018-05-28 13:17 | PN ---
Progress Note, Physician Chief Complaint: Hyponatremia AMS C-diff History of Present Illness: Previous notes and events reviewed awake and alert NAD s/p PEG tube placement tolerating feeds Patient being discharged home today - Current Medication List Current Medications: Active Medications Acetaminophen (Tylenol Oral Solution -) 650 mg NGT Q6H PRN PRN Reason: FEVER Last Admin: 05/27/18 14:11 Dose: 650 mg Albuterol/Ipratropium (Duoneb -) 1 amp NEB Q6H PRN PRN Reason: SHORT OF BREATH/WHEEZING Last Admin: 05/27/18 11:21 Dose: 1 amp Amino Acids (Prosource No Carb Liquid Pkt) 30 ml PEG BID@0800,1730 [facility] Last Admin: 05/28/18 09:38 Dose: 30 ml Ascorbic Acid (Vitamin C Oral Solution -) 500 mg NGT DAILY [facility] Last Admin: 05/28/18 09:38 Dose: 500 mg Bacitracin (Bacitracin -) 1 applic TP BID [facility] Last Admin: 05/28/18 09:38 Dose: 1 applic Carbamazepine (Tegretol Oral Suspension -) 200 mg PEG TID [facility] Last Admin: 05/28/18 13:00 Dose: 200 mg Clonazepam (Klonopin -) 0.5 mg NGT HS [facility] Last Admin: 05/27/18 23:29 Dose: 0.5 mg Collagenase (Santyl -) 1 applic TP DAILY [facility]; Protocol Last Admin: 05/28/18 09:39 Dose: 1 applic Cyanocobalamin (Vitamin B12 -) 1,000 mcg NGT DAILY [facility] Last Admin: 05/28/18 09:37 Dose: 1,000 mcg Ferrous Sulfate (Feosol) 300 mg NGT DAILY [facility] Last Admin: 05/28/18 09:38 Dose: 300 mg Folic Acid (Folic Acid -) 1 mg NGT DAILY [facility] Last Admin: 05/28/18 09:37 Dose: 1 mg Hydralazine HCl (Apresoline -) 50 mg NGT TID [facility] Last Admin: 05/28/18 13:00 Dose: 50 mg Lactobacillus Acidophilus (Bacid -) 1 tab NGT BID [facility] Last Admin: 05/28/18 09:37 Dose: 1 tab Levothyroxine Sodium (Synthroid -) 100 mcg NGT DAILY@0700 [facility] Last Admin: 05/28/18 06:51 Dose: 100 mcg Loratadine (Claritin -) 10 mg NGT DAILY [facility] Last Admin: 05/28/18 09:37 Dose: 10 mg Metoprolol Tartrate (Lopressor -) 50 mg NGT BID [facility] Last Admin: 05/28/18 09:37 Dose: 50 mg Mirtazapine (Remeron -) 7.5 mg NGT HS [facility] Last Admin: 05/27/18 23:29 Dose: 7.5 mg Nystatin/Triamcinolone Acetonide (Mycolog Ii Ointment -) 1 applic TP BID [facility] Last Admin: 05/28/18 09:39 Dose: 1 applic Pantoprazole Sodium (Protonix Iv) 40 mg IVPUSH BID [facility] Last Admin: 05/28/18 09:39 Dose: 40 mg Potassium Phos/Sodium Phos (Phos-Nak Packet -) 1 packet NGT DAILY [facility] Last Admin: 05/28/18 09:38 Dose: 1 packet Sertraline HCl (Zoloft -) 50 mg NGT DAILY [facility] Last Admin: 05/28/18 09:37 Dose: 50 mg Sodium Chloride (Sodium Chloride Tablet -) 1 gm NGT DAILY [facility] Last Admin: 05/28/18 09:38 Dose: 1 gm Vancomycin HCl (Vancomycin Oral Solution) 125 mg NGT Q6HPO [facility] Last Admin: 05/28/18 13:00 Dose: 125 mg Zinc Sulfate (Orazinc -) 220 mg NGT DAILY [facility] Last Admin: 05/28/18 09:37 Dose: 220 mg - Objective Vital Signs: Vital Signs Temperature 98.3 F 05/28/18 06:00 Pulse Rate 98 H 05/28/18 09:50 Respiratory Rate 16 05/28/18 06:00 Blood Pressure 151/69 05/28/18 06:00 O2 Sat by Pulse Oximetry (%) 100 05/28/18 09:50 Constitutional: Yes: No Distress, Calm Eyes: Yes: Conjunctiva Clear HENT: Yes: Atraumatic Neck: Yes: Other (trach) Cardiovascular: Yes: Regular Rate and Rhythm Respiratory: Yes: Diminished, Mechanically Ventilated Gastrointestinal: Yes: Normal Bowel Sounds, Soft Genitourinary: Yes: Raza Present Musculoskeletal: Yes: Muscle Weakness Extremities: Yes: WNL Edema: No Neurological: Yes: Alert, Oriented Psychiatric: Yes: Alert, Oriented Labs: CBC, BMP 05/27/18 06:00 05/27/18 06:00 INR, PTT INR 1.15 (0.83-1.09) H 05/20/18 14:15 Problem List - Problems (1) Abnormal LFTs Assessment/Plan: -monitor LFTs Code(s): R94.5 - ABNORMAL RESULTS OF LIVER FUNCTION STUDIES (2) Anemia Assessment/Plan: -monitor Hg daily -transfuse for Hg <8.0 -current Hg 9.5 Code(s): D64.9 - ANEMIA, UNSPECIFIED (3) C. difficile diarrhea Assessment/Plan: -contact precaution -completed vanco po course -positve c-diff antigen Code(s): A04.72 - ENTEROCOLITIS D/T CLOSTRIDIUM DIFFICILE, NOT SPCF RECUR (4) Functional quadriplegia secondary to MS Assessment/Plan: -turn and position q2h -FC -dvt ppx Code(s): G35 - MULTIPLE SCLEROSIS; R53.2 - FUNCTIONAL QUADRIPLEGIA (5) Hypothyroid Assessment/Plan: -continue with levothyroxine Code(s): E03.9 - HYPOTHYROIDISM, UNSPECIFIED (6) Hyperkalemia Assessment/Plan: -resolved Code(s): E87.5 - HYPERKALEMIA (7) Hyponatremia Assessment/Plan: -resolved Code(s): E87.1 - HYPO-OSMOLALITY AND HYPONATREMIA (8) Pneumonia Assessment/Plan: -CXR shows right base atelectasis and/or infiltrate -pulm on board -maintain SpO2 >90% -duoneb tx PRN for SOB Code(s): J18.9 - PNEUMONIA, UNSPECIFIED ORGANISM Qualifiers: Pneumonia type: pneumonia due to methicillin-resistant Staphylococcus aureus (MRSA) (9) HTN (hypertension) Assessment/Plan: -continue with hydralazine and metoprolol -hold BP meds if SBP <110 and/or DBP <70 Code(s): I10 - ESSENTIAL (PRIMARY) HYPERTENSION (10) Hx of multiple sclerosis Assessment/Plan: -ventilator dependent -PEG tube placed and cleared for use, started back on feeds--tolerating well -neurology on board -on discharge outpatient augmentive communication therapy at [facility] Code(s): Z86.69 - PERSONAL HISTORY OF DIS OF THE NERVOUS SYS AND SENSE ORGANS
--- NOTE | 2018-07-22 19:29 | CONS ---
DATE OF CONSULTATION: 05/06/2018 DATE OF DICTATION: 07/22/2018 INFECTIOUS DISEASE CONSULTATION HISTORY OF PRESENT ILLNESS: The patient was seen May 06 when going through my computer signing I noticed the dictation is missing, and I am now redictating it for May 06. This is a 53-year-old woman with MS, functional quadriplegia, chronic Raza catheter, chronic respiratory failure, who was admitted for hyponatremia. She was admitted to the ICU for hypertonic saline once in April. She is now alert and afebrile. She was noted to have an elevated white cell and right lower lobe infiltrate versus atelectasis. She was on admission found to have a sodium 116 and then was admitted. She was hypothermic with a sodium of 126, and she was treated with hypertonic saline. PAST MEDICAL HISTORY: Notable for MS, functional quadriplegia, trach collar, baclofen, chronic Raza catheter, toxic metabolic encephalopathy, intermittent hyponatremia with SIADH, hypertension, hyperlipidemia, hypothyroidism, trigeminal neuralgia. She has trach, and baclofen pump. She has a history in the past of MRSA and pneumonia as well. She has a chronic decubitus ulcer that is being managed by Dr. Miranda, who goes out to the house. SOCIAL HISTORY: She lives with her family. No history of cigarette, alcohol, or substance use. She has home health aids 24 hours a day. She lives at home, and she has a ventilator at home. REVIEW OF SYSTEMS: Not obtainable. PHYSICAL EXAMINATION: GENERAL: She is awake and alert. No fever. VITAL SIGNS: Stable. HEENT: Normocephalic. Eyes are anicteric with a trach. NECK: Supple. LUNGS: Clear to auscultation. HEART: Regular rate and rhythm. ABDOMEN: Soft, nontender. EXTREMITIES: Without edema. LABORATORY: Notable for white count of 13, hemoglobin 10.7, platelets of 95, 000. Chemistries notable for sodium of 122, potassium of 4.3, BUN 21, creatinine 0.5. Chest x-ray notable for a right pleural effusion with compressive atelectasis versus right lower lobe pneumonia. This was a new finding. IMPRESSION: In summary, this is a 53-year-old woman who was noted to have elevated white count and right lower lobe infiltrate versus atelectasis, afebrile and alert with improvement in mental status. Would suggest cultures, blood sputum and urinary antigens. Chest CT if indeed this is atelectasis, empiric Levaquin for now, as she clinically appears well. Will require close followup. Case was discussed at length with the ICU resident. HANNA VAZ M.D. BERNARDINO/[id number] MTDD
== END 2018-05-28 14:59 | disposition home or self-care (01) | DRG 643 ==
LOC: JER 15:26 → JERBED 19:29 → OBSVTOIN 05-04 12:29 → J5S 05-04 17:09 → JICU 05-05 21:59 → J5S 05-07 18:03
PROVIDERS: ADMIT Family Medicine; ATTEND Family Medicine
PROC: 5A1955Z Respiratory Ventilation, Greater than 96 Consecutive Hours (ICD-10-PCS; principal; 2018-05-03)
PROC: 0DH67UZ Insertion of Feeding Device into Stomach, Via Natural or Artificial Opening (ICD-10-PCS; 2018-05-11)
PROC: 3E0G76Z Introduction of Nutritional Substance into Upper GI, Via Natural or Artificial Opening (ICD-10-PCS; 2018-05-11)
PROC: 0HB6XZZ Excision of Back Skin, External Approach (ICD-10-PCS; 2018-05-23)
PROC: 0DH63UZ Insertion of Feeding Device into Stomach, Percutaneous Approach (ICD-10-PCS; 2018-05-24)
DX: E22.2 Syndrome of inappropriate secretion of antidiuretic hormone (principal); L89.154 Pressure ulcer of sacral region, stage 4; R53.2 Functional quadriplegia; G92 Toxic encephalopathy; J96.21 Acute and chronic respiratory failure with hypoxia; J96.22 Acute and chronic respiratory failure with hypercapnia; J69.0 Pneumonitis due to inhalation of food and vomit; J90 Pleural effusion, not elsewhere classified; B37.0 Candidal stomatitis; A04.72 Enterocolitis due to Clostridium difficile, not specified as recurrent; I10 Essential (primary) hypertension; E78.5 Hyperlipidemia, unspecified; E03.9 Hypothyroidism, unspecified; H54.8 Legal blindness, as defined in USA; G50.0 Trigeminal neuralgia; R68.0 Hypothermia, not associated with low environmental temperature; Z93.0 Tracheostomy status; L89.159 Pressure ulcer of sacral region, unspecified stage; G35 Multiple sclerosis; D64.9 Anemia, unspecified; R94.5 Abnormal results of liver function studies; E87.5 Hyperkalemia; G47.00 Insomnia, unspecified; F41.9 Anxiety disorder, unspecified; E87.8 Other disorders of electrolyte and fluid balance, not elsewhere classified; F32.9 Major depressive disorder, single episode, unspecified; R13.10 Dysphagia, unspecified
CPT/HCPCS: 36415; 36430; 36511; 43752; 49440; 49465; 70450-TC; 71045-TC-FY; 74018-TC-FY; 74230-TC-FY; 76380-TC; 76705-TC; 80048; 80053; 80156; 81003; 81015; 82550; 82607; 82962; 83540; 83550; 83605; 83735; 83935; 84100; 84295; 84443; 84484; 85025; 85027; 85610; 85651; 86140; 86850; 86900; 86901; 86922; 87040; 87070; 87086; 87186; 87205; 87324; 87449; 87899; 92611-GN; 93005; 93010; 94002; 94640; 99285-25; G0378; G0480; J0131; J7030; P9038; P9058

== ENCOUNTER 2018-07-20 15:50 | Inpatient (IN) | payer OTHER ==
--- NOTE | 2018-07-20 16:23 | PDOC ---
History of Present Illness - General Chief Complaint: Blood Transfusion Stated Complaint: Blood Pressure Problem History Source: Patient, Family - History of Present Illness Initial Comments: 07/20/18 17:24 History obtained with assistance from patient's mother at bedside. Patient is a 53 year old female with history of multiple sclerosis, functional quadriplegia, hypertension, hyperlipidemia, hypothyroidism, trigeminal neuralgia (on baclofen pump), neurogenic bladder (chronic perera catheter), tracheostomy tube (on vent in evening), chronic PEG tube presents to ED at request of her primary care physician for "anemia" noted on recent blood-work. Case discussed with Dr. Lopez who states he requested patient come to ED due to hyponatremia on recetn blood work. Patient's mother and aide at bedside endorse that she has been in her usual state of health. Patient only endorses shortness of breath ongoing for past several says, using home oxygen at 3 Liters. Deny any recent bleeding. Deny hematemesis, hemoptysis, hematuria, melena, hematochezia. Deny subjective fevers, chills, chest pain, palpitations, abdominal pain, nausea, vomiting. Past History - Travel Traveled outside of the country in the last 30 days: No - Past Medical History Allergies/Adverse Reactions: Allergies Allergy/AdvReac Type Severity Reaction Status Date / Time chloral hydrate Allergy Intermediate Rash Verified 05/03/18 18:54 [Chloral Hydrate] azathioprine [From Imuran] Allergy Rash Verified 05/03/18 18:54 azathioprine sodium Allergy Rash Verified 05/03/18 18:54 [From Imuran] adhesive tape AdvReac Severe sensitivity Verified 05/03/18 18:54 to glue adhesive AdvReac Unknown Verified 05/03/18 18:54 Home Medications: Ambulatory Orders Melatonin 2 mg PO HS 05/03/18 Metoprolol Succinate [Toprol Xl] 50 mg PO BID 05/03/18 Multivitamin [Multiple Vitamins] 1 each PO DAILY 05/03/18 Potassium Chloride [K-Dur -] 20 meq PO DAILY 05/03/18 Albuterol 2.5/Ipratropium 0.5 [Duoneb -] 1 amp NEB Q6H PRN #45 amp 05/28/18 Ascorbic Acid [Vitamin C -] 500 mg PO DAILY #30 tablet 05/28/18 Cyanocobalamin [Vitamin B12 -] 1,000 mcg NGT DAILY #30 tablet 05/28/18 Folic Acid - 1 mg NGT DAILY #30 tablet 05/28/18 Lactobacillus Acidophilus [Bacid -] 1 tab NGT BID #14 tab 05/28/18 Levothyroxine [Synthroid -] 100 mcg NGT DAILY@0700 #30 tablet 05/28/18 Loratadine [Claritin -] 10 mg NGT DAILY #30 tablet 05/28/18 Mirtazapine [Remeron -] 7.5 mg NGT HS #30 tablet 05/28/18 Sertraline HCl [Zoloft -] 50 mg NGT DAILY #30 tablet 05/28/18 Zinc Sulfate [Orazinc -] 220 mg NGT DAILY #30 capsule 05/28/18 hydrALAZINE HCL [Apresoline -] 50 mg NGT TID #90 tablet 05/28/18 Carbamazepine [Tegretol -] 100 mg PO TID 07/20/18 Furosemide 20 mg PO DAILY 07/20/18 Anemia: Yes Asthma: No Cancer: No Cardiac Disorders: No CVA: No COPD: No CHF: No DVT: No Dementia: (M.S,TRIG.NEUROLAGIA) Diabetes: No GI Disorders: Yes Disorders: Yes (baclofen implant) HTN: Yes Hypercholesterolemia: No Liver Disease: No Seizures: Yes Thyroid Disease: No - Surgical History Abdominal Surgery: No Appendectomy: No Cardiac Surgery: No Cholecystectomy: No GI Surgery: (BACLOFEN IMPLANT) Lung Surgery: Yes (TRACH) Neurologic Surgery: No Orthopedic Surgery: No - Immunization History Immunization Up to Date: Yes - Suicide/Smoking/Psychosocial Hx Smoking Status: No Smoking History: Never smoked Have you smoked in the past 12 months: No Number of Cigarettes Smoked Daily: 0 Cigars Per Day: 0 Information on smoking cessation initiated: No Hx Alcohol Use: No Drug/Substance Use Hx: No Substance Use Type: None Hx Substance Use Treatment: No Review of Systems - Review of Systems Able to Perform ROS?: No Comments:: 07/20/18 17:34 As per HPI. Minimal ROS due to patient's condition. Constitutional: No: Chills, Diaphoresis, Fever HEENTM: No: Recent change in vision, Throat Pain, Throat Swelling, Difficulty Swallowing Respiratory: Yes: Shortness of Breath. No: Cough, Stridor, Wheezing, Hemoptysis Cardiac (ROS): No: Chest Pain, Lightheadedness, Palpitations, Syncope ABD/GI: No: Abdominal Distended, Blood Streaked Bowels, Constipated, Diarrhea, Nausea : No: Dysuria, Hematuria, Incontinence Neurological: No: Headache, Tremors, Weakness *Physical Exam - Vital Signs Last Vital Signs Temp Pulse Resp BP Pulse Ox 92.7 F L 62 18 148/64 100 07/20/18 16:06 07/20/18 16:06 07/20/18 16:06 07/20/18 16:06 07/20/18 16:06 - Physical Exam General Appearance: No: Apparent Distress HEENT: positive: EOMI, ANDRIY. negative: Pale Conjunctivae, Scleral Icterus (R), Scleral Icterus (L) Neck: positive: Supple, Other (+ tracheostomy tube) Respiratory/Chest: positive: Crackles, Rhonchi. negative: Respiratory Distress , Accessory Muscle Use, Stridor, Wheezing Cardiovascular: positive: Regular Rhythm, Regular Rate, S1, S2. negative: Murmur Vascular Pulses: Dorsalis-Pedis (R): 2+, Doralis-Pedis (L): 2+ Gastrointestinal/Abdominal: positive: Normal Bowel Sounds, Other (Peg tube in place without erythema,or drainage. Baclofen pump. ) Rectal Exam: positive: decreased tone, other (sample sent for occult blood). negative: melena, hemorrhoids Integumentary: positive: Other (sacral decubitus ulcers, bandaged clean, dry) Neurologic: positive: Alert, Other (paraplegic ) ED Treatment Course - LABORATORY CBC & Chemistry Diagram: 07/21/18 07:00 07/21/18 07:00 Medical Decision Making - Medical Decision Making 07/20/18 17:06 Patient is a 53 year old female with history of multiple sclerosis, functional quadriplegia, hypertension, hyperlipidemia, hypothyroidism, trigeminal neuralgia (on baclofen pump), neurogenic bladder (chronic perera catheter), tracheostomy tube, chronic PEG tube presents to ED at request of her primary care physician for electrolyte derangement noted on recent blood-work. Will workup for sepsis, given hypothermia CBC- workup for ?anemia, and evaluate for WBC count, CMP Patient may not effectively mount WBC elevation Blood cultures, Urine cultures, urinalysis Chest radiograph EKG Stool for occult blood; negative Hyponatremia; has been worked up in the past as SIADH. TSH in 04/2018 was WNL. Hyperkalemia- EKG shows no peaked T waves Hypochloremia- Furosemide noted as home medication. May contribute to electrolyte derangement. Sepsis likely secondary to UTI. Awaiting urine CX. History of contaminated urine CX. Rocephin 1gram IV Will likely admit for further management of hyponatremia, and sepsis secondary to UTI Case signed out to Dr. Velez. *DC/Admit/Observation/Transfer Diagnosis at time of Disposition: Sepsis, Urinary tract infection, Hypothermia, Hyponatremia - Referrals - Patient Instructions - Post Discharge Activity
[2018-07-20 17:51] LABS: BASO % 0.1 % (0-2.0); EOS % 0.6 % (0-4.5); HEMATOCRIT 26.6 % (32.4-45.2); HEMOGLOBIN 8.7 GM/dL (10.7-15.3); LYMPH % 6.1 % (8-40); MCH 30.8 pg (25.7-33.7); MCHC 32.6 g/dl (32.0-36.0); MEAN CELL VOLUME 94.6 fl (80-96); MEAN PLT VOLUME 8.9 fl (7.5-11.1); MONO % 4.7 % (3.8-10.2); NEUT % 88.5 % (42.8-82.8); PLATELET COUNT 168 K/MM3 (134-434); RBC 2.81 M/mm3 (3.60-5.2); RDW 17.6 % (11.6-15.6)
[2018-07-20 18:17] LABS: ALBUMIN 2.6 g/dl (3.4-5.0); BILIRUBIN,TOTAL 0.2 mg/dL (0.2-1); CALCIUM 8.8 mg/dL (8.5-10.1); CREATININE 0.3 mg/dL (0.55-1.3); POTASSIUM 5.4 mmol/L (3.5-5.1); TOT PROT 8.1 g/dl (6.4-8.2)
--- NOTE | 2018-07-20 19:07 | PDOC ---
*Physical Exam - Vital Signs Last Vital Signs Temp Pulse Resp BP Pulse Ox 96.5 F L 80 16 122/66 100 07/20/18 18:28 07/20/18 18:28 07/20/18 18:28 07/20/18 18:28 07/20/18 18:28 - Physical Exam Comments: 07/20/18 19:05 Received sign out from Dr. Ortega. Pending UA, urine culture. Suspected SIRS vs SEPSIS. ED Treatment Course - LABORATORY CBC & Chemistry Diagram: 07/22/18 07:00 07/22/18 07:00 - ADDITIONAL ORDERS Additional order review: Laboratory Results 07/20/18 07/20/18 07/20/18 17:23 17:23 17:15 Sodium 125 L Potassium 5.4 H Chloride 89 L Carbon Dioxide 32 Anion Gap 4 L BUN 22 H Creatinine 0.3 L Est GFR (CKD-EPI)AfAm 150.44 Est GFR (CKD-EPI)NonAf 129.80 Random Glucose 74 Lactic Acid 0.5 Calcium 8.8 Total Bilirubin 0.2 AST 26 ALT 29 Alkaline Phosphatase 164 H Total Protein 8.1 Albumin 2.6 L Stool Occult Blood Negative 07/20/18 17:23 RBC 2.81 L MCV 94.6 MCHC 32.6 RDW 17.6 H MPV 8.9 Neutrophils % 88.5 H D Lymphocytes % 6.1 L D Monocytes % 4.7 Eosinophils % 0.6 D Basophils % 0.1 Medical Decision Making - Medical Decision Making 07/22/18 23:53 Laboratory Tests 07/20/18 07/20/18 07/20/18 17:15 17:23 17:23 WBC RBC Hgb Hct MCV MCH MCHC RDW Plt Count MPV Absolute Neuts (auto) Neutrophils % Lymphocytes % Monocytes % Eosinophils % Basophils % Nucleated RBC % Sodium 125 L Potassium 5.4 H Chloride 89 L Carbon Dioxide 32 Anion Gap 4 L BUN 22 H Creatinine 0.3 L Est GFR (CKD-EPI)AfAm 150.44 Est GFR (CKD-EPI)NonAf 129.80 Random Glucose 74 Lactic Acid 0.5 Calcium 8.8 Total Bilirubin 0.2 AST 26 ALT 29 Alkaline Phosphatase 164 H Total Protein 8.1 Albumin 2.6 L Urine Color Urine Appearance Urine pH Ur Specific [place] Urine Protein Urine Glucose (UA) Urine Ketones Urine Blood Urine Nitrite Urine Bilirubin Urine Urobilinogen Ur Leukocyte Esterase Urine WBC (Auto) Urine RBC (Auto) Urine Casts (Auto) U Epithel Cells (Auto) U Sm Round Cell (Auto) Urine Bacteria (Auto) Stool Occult Blood Negative 07/20/18 07/20/18 17:23 18:13 WBC 8.0 RBC 2.81 L Hgb 8.7 L Hct 26.6 L MCV 94.6 MCH 30.8 MCHC 32.6 RDW 17.6 H Plt Count 168 D MPV 8.9 Absolute Neuts (auto) 7.1 Neutrophils % 88.5 H D Lymphocytes % 6.1 L D Monocytes % 4.7 Eosinophils % 0.6 D Basophils % 0.1 Nucleated RBC % 0 Sodium Potassium Chloride Carbon Dioxide Anion Gap BUN Creatinine Est GFR (CKD-EPI)AfAm Est GFR (CKD-EPI)NonAf Random Glucose Lactic Acid Calcium Total Bilirubin AST ALT Alkaline Phosphatase Total Protein Albumin Urine Color Yellow Urine Appearance Cloudy Urine pH >= 9.0 H Ur Specific [place] 1.016 Urine Protein 2+ H Urine Glucose (UA) Negative Urine Ketones Negative Urine Blood Negative Urine Nitrite Positive H Urine Bilirubin Negative Urine Urobilinogen 0.2 Ur Leukocyte Esterase 3+ H Urine WBC (Auto) 13 Urine RBC (Auto) 1 Urine Casts (Auto) 5 U Epithel Cells (Auto) 12.2 U Sm Round Cell (Auto) Review A* Urine Bacteria (Auto) 1693.4 Stool Occult Blood Patient was found to have positive UA, indicating UTI. Patient to be admitted to [facility] service. Dispo: Admit *DC/Admit/Observation/Transfer Diagnosis at time of Disposition: Sepsis, Urinary tract infection, Hypothermia, Hyponatremia - Referrals - Patient Instructions - Post Discharge Activity
[2018-07-20] MEDS ORDERED: CEFTRIAXONE 1 GM in DEXTROSE 5%-WATER - 100 ML IVPB ONE (19:20)
[2018-07-20 19:30] LABS: EPI CELLS 12.2 /HPF (0-5/HPF); HYALINE CASTS 5 /lpf (0-8); PH,URINE >= 9.0 (5.0-8.0); URINE APPEARANCE CLOUDY; URINE BACTERIA 1693.4 /hpf (NEGATIVE); URINE BILIRUBIN NEGATIVE (NEGATIVE); URINE COLOR YELLOW; URINE GLUCOSE (UA) NEGATIVE (NEGATIVE); URINE KETONE NEGATIVE (NEGATIVE); URINE LEUK ESTERASE 3+ (NEGATIVE); URINE NITRITE POSITIVE (NEGATIVE); URINE PROTEIN 2+ (NEGATIVE); URINE RBC 1 /hpf (0-4); URINE UROBILINOGEN 0.2 mg/dL (0.2-1.0); URINE WBC 13 /hpf (0-5)
[2018-07-20] MEDS ORDERED: SODIUM CHLORIDE 500 ML IV SCH (19:30)
[2018-07-20] MEDS ORDERED: CEFTRIAXONE 1 GM/50 ML BAG ONE (20:21)
--- NOTE | 2018-07-20 20:21 | PDOC ---
Documentation entered by Gildardo Pepper SCRIBE, acting as scribe for Kar Higuera MD. Kar Higuera MD: This documentation has been prepared by the Shantelle de jesus Xhesika, SCRIBE, under my direction and personally reviewed by me in its entirety. I confirm that the documentation accurately reflects all work, treatment, procedures, and medical decision making performed by me. Attending Attestation - Resident Resident Name: Bravo Ortega - HPI HPI: 07/20/18 17:36 The patient is a 53 year old female with a significant past medical history of MS (functional quadriplegia, trach collar, Baclofen pump, perera), HTN, HLD, hypothyroidism, legal blindness, trigeminal neuralgia who presents to our ED advised by her PCP, Dr. Lopez for Anemia due to her recent blood work. As per mother and aid, the patient is at her usual health, however, the patient is complaining of SOB for the last several days. As per aid, they deny any recent bleeding, hematemesis, hemoptysis, hematuria, melena, hematochezia. The patient denies chest pain, shortness of breath or dizziness. The patient denies fever, chills, nausea, diarrhea or constipation. 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 Patient is hemodynamically stable. There is no evidence of active bleeding. CMP reveals a sodium of 125. Will initiate fluid restriction and will initiate a judicious normal saline drip at 80 ML an hour. Hyperthermia is likely related to underlying sepsis which in this patient is most likely related to urosepsis. We' ll obtain blood and urine cultures. Review of records reveals Escherichia coli pansensitive to numerous antibiotics. Will initiate ceftriaxone therapy. Will admit.
--- NOTE | 2018-07-20 20:38 | HP ---
Admitting History and Physical - Primary Care Physician PCP: Anne Lopez - Admission Chief Complaint: Abnormal Lab Values History of Present Illness: This is a 53 y/o woman with a PMHx of MS, s/p Trach (vent HS),Trigeminal Neuralgia, Neurogenic Bladder (Chronic Perera Catheter), HTN, HLD, Hypothyroidism. Who presents to the ED with her mother sent in from her PCPs office for Anemia and Hyponatremia. Per the patient's mother the patient's Hgb and Na levels were low from recent blood work. The mother and the patient's LEGAL ADMINISTRATIVE ASSISTANT state " that the patient has been complaining of increased jaw/face pain and asking for more doses of her Tegretol as well as increased frequency. Per the LEGAL ADMINISTRATIVE ASSISTANT the patient has been getting 6-7 doses daily. The mother reports that the patient has been getting enteral feedings as well as some oral nutrition. The LEGAL ADMINISTRATIVE ASSISTANT reports that last week she observed that the perera tubing had "white discharge". The mother reports changing the perera last week. The patient was unable to provide HPI due to he clinical condition. History Source: Family Member, Caregiver Limitations to Obtaining History: Clinical Condition - Past Medical History COLORIST PHOTOGRAPHY: Yes: Multiple Sclerosis (quadraplegia), Other (legally blind, trigeminal neuralgia -> baclofen pump) Cardiovascular: Yes: HTN, Hyperlipdemia Pulmonary: Yes: Pneumonia, Previously Intubated, Other Gastrointestinal: Yes: Constipation (chronic) Hepatobiliary: Yes: Cholelithiasis Renal/: Yes: Neurogenic Bladder ( neurogenic bladder, chronic perera catheter) ...LMP: 06/07/12 Heme/Onc: Yes: Anemia Infectious Disease: Yes: Other (pneumonia, uti treated by urologist) Musculoskeletal: Yes: Other (Quadraplegia) Dermatology: Yes: Other (chronic decubitus followed by wound care) - Past Surgical History Past Surgical History: Yes: Colonoscopy - Smoking History Smoking history: Never smoked Have you smoked in the past 12 months: No Aproximately how many cigarettes per day: 0 - Alcohol/Substance Use Hx Alcohol Use: No History of Substance Use: reports: None - Social History ADL: Support Services History of Recent Travel: No Home Medications - Allergies Allergies/Adverse Reactions: Allergies Allergy/AdvReac Type Severity Reaction Status Date / Time chloral hydrate Allergy Intermediate Rash Verified 05/03/18 18:54 [Chloral Hydrate] azathioprine [From Imuran] Allergy Rash Verified 05/03/18 18:54 azathioprine sodium Allergy Rash Verified 05/03/18 18:54 [From Imuran] adhesive tape AdvReac Severe sensitivity Verified 05/03/18 18:54 to glue adhesive AdvReac Unknown Verified 05/03/18 18:54 - Home Medications Home Medications: Ambulatory Orders Melatonin 2 mg PO HS 05/03/18 Metoprolol Succinate [Toprol Xl] 50 mg PO BID 05/03/18 Multivitamin [Multiple Vitamins] 1 each PO DAILY 05/03/18 Potassium Chloride [K-Dur -] 20 meq PO DAILY 05/03/18 Albuterol 2.5/Ipratropium 0.5 [Duoneb -] 1 amp NEB Q6H PRN #45 amp 05/28/18 Ascorbic Acid [Vitamin C -] 500 mg PO DAILY #30 tablet 05/28/18 Cyanocobalamin [Vitamin B12 -] 1,000 mcg NGT DAILY #30 tablet 05/28/18 Folic Acid - 1 mg NGT DAILY #30 tablet 05/28/18 Lactobacillus Acidophilus [Bacid -] 1 tab NGT BID #14 tab 05/28/18 Levothyroxine [Synthroid -] 100 mcg NGT DAILY@0700 #30 tablet 05/28/18 Loratadine [Claritin -] 10 mg NGT DAILY #30 tablet 05/28/18 Mirtazapine [Remeron -] 7.5 mg NGT HS #30 tablet 05/28/18 Sertraline HCl [Zoloft -] 50 mg NGT DAILY #30 tablet 05/28/18 Zinc Sulfate [Orazinc -] 220 mg NGT DAILY #30 capsule 05/28/18 hydrALAZINE HCL [Apresoline -] 50 mg NGT TID #90 tablet 05/28/18 Carbamazepine [Tegretol -] 100 mg PO TID 07/20/18 Furosemide 20 mg PO DAILY 07/20/18 Family Disease History - Family Disease History Family Disease History: Diabetes: Sister, Other: Mother Review of Systems Unable to obtain ROS, reason: Clinical Condition Physical Examination Vital Signs: Vital Signs Temperature 96.5 F L 07/20/18 18:28 Pulse Rate 80 07/20/18 18:28 Respiratory Rate 16 07/20/18 18:28 Blood Pressure 122/66 07/20/18 18:28 O2 Sat by Pulse Oximetry (%) 100 07/20/18 18:28 Constitutional: Yes: Other (Lethargic) Eyes: Yes: Conjunctiva Clear, PERRL HENT: Yes: WNL, Atraumatic, Normocephalic Neck: Yes: Other (trach) Cardiovascular: Yes: Regular Rate and Rhythm, S1, S2 Respiratory: Yes: Regular, CTA Bilaterally, Other (trach collar- O2) Gastrointestinal: Yes: Normal Bowel Sounds, Soft, Other (PEG) Edema: No Peripheral Pulses WNL: Yes Neurological: Yes: Lethargy Labs: CBC, BMP 07/20/18 17:23 07/20/18 17:23 Laboratory Results - last 24 hr 07/20/18 07/20/18 07/20/18 17:15 17:23 17:23 WBC RBC Hgb Hct MCV MCH MCHC RDW Plt Count MPV Absolute Neuts (auto) Neutrophils % Lymphocytes % Monocytes % Eosinophils % Basophils % Nucleated RBC % Sodium 125 L Potassium 5.4 H Chloride 89 L Carbon Dioxide 32 Anion Gap 4 L BUN 22 H Creatinine 0.3 L Est GFR (CKD-EPI)AfAm 150.44 Est GFR (CKD-EPI)NonAf 129.80 Random Glucose 74 Lactic Acid 0.5 Calcium 8.8 Total Bilirubin 0.2 AST 26 ALT 29 Alkaline Phosphatase 164 H Total Protein 8.1 Albumin 2.6 L Urine Color Urine Appearance Urine pH Ur Specific [place] Urine Protein Urine Glucose (UA) Urine Ketones Urine Blood Urine Nitrite Urine Bilirubin Urine Urobilinogen Ur Leukocyte Esterase Urine WBC (Auto) Urine RBC (Auto) Urine Casts (Auto) U Epithel Cells (Auto) U Sm Round Cell (Auto) Urine Bacteria (Auto) Urine Osmolality Ur Random Sodium Stool Occult Blood Negative 07/20/18 07/20/18 07/21/18 17:23 18:13 00:30 WBC 8.0 RBC 2.81 L Hgb 8.7 L Hct 26.6 L MCV 94.6 MCH 30.8 MCHC 32.6 RDW 17.6 H Plt Count 168 D MPV 8.9 Absolute Neuts (auto) 7.1 Neutrophils % 88.5 H D Lymphocytes % 6.1 L D Monocytes % 4.7 Eosinophils % 0.6 D Basophils % 0.1 Nucleated RBC % 0 Sodium Potassium Chloride Carbon Dioxide Anion Gap BUN Creatinine Est GFR (CKD-EPI)AfAm Est GFR (CKD-EPI)NonAf Random Glucose Lactic Acid Calcium Total Bilirubin AST ALT Alkaline Phosphatase Total Protein Albumin Urine Color Yellow Urine Appearance Cloudy Urine pH >= 9.0 H Ur Specific [place] 1.016 Urine Protein 2+ H Urine Glucose (UA) Negative Urine Ketones Negative Urine Blood Negative Urine Nitrite Positive H Urine Bilirubin Negative Urine Urobilinogen 0.2 Ur Leukocyte Esterase 3+ H Urine WBC (Auto) 13 Urine RBC (Auto) 1 Urine Casts (Auto) 5 U Epithel Cells (Auto) 12.2 U Sm Round Cell (Auto) Review A* Urine Bacteria (Auto) 1693.4 Urine Osmolality 469 Ur Random Sodium Stool Occult Blood 07/21/18 07/21/18 07/21/18 00:30 02:55 02:55 WBC 5.1 RBC 2.65 L Hgb 8.1 L Hct 25.1 L MCV 94.7 MCH 30.5 MCHC 32.2 RDW 17.1 H Plt Count 163 MPV 8.5 Absolute Neuts (auto) 3.9 Neutrophils % 77.7 Lymphocytes % 11.9 D Monocytes % 9.2 D Eosinophils % 1.0 Basophils % 0.2 Nucleated RBC % 0 Sodium 129 L Potassium 5.0 Chloride 93 L Carbon Dioxide 33 H Anion Gap 4 L BUN 20 H Creatinine 0.4 L Est GFR (CKD-EPI)AfAm 136.86 Est GFR (CKD-EPI)NonAf 118.08 Random Glucose 73 L Lactic Acid Calcium 8.1 L Total Bilirubin AST ALT Alkaline Phosphatase Total Protein Albumin Urine Color Urine Appearance Urine pH Ur Specific [place] Urine Protein Urine Glucose (UA) Urine Ketones Urine Blood Urine Nitrite Urine Bilirubin Urine Urobilinogen Ur Leukocyte Esterase Urine WBC (Auto) Urine RBC (Auto) Urine Casts (Auto) U Epithel Cells (Auto) U Sm Round Cell (Auto) Urine Bacteria (Auto) Urine Osmolality Ur Random Sodium 32 L Stool Occult Blood Intake & Output 07/18/18 07/19/18 07/20/18 07/21/18 23:59 23:59 23:59 23:59 Output Total 750 Balance -750 Weight 68.039 kg Current Medications Generic Name Dose Route Start Last Admin Trade Name Freq PRN Reason Stop Dose Admin Albuterol/Ipratropium 1 amp 07/20/18 23:17 Duoneb - NEB Q6H PRN SHORT OF BREATH/WHEEZING Ascorbic Acid 500 mg 07/21/18 10:00 Vitamin C - PEG DAILY CATHERINE Clonazepam 0.5 mg 07/20/18 23:44 Klonopin - PEG HS PRN ANXIETY Cyanocobalamin 1,000 mcg 07/21/18 10:00 Vitamin B12 - PEG DAILY CATHERINE Folic Acid 1 mg 07/21/18 10:00 Folic Acid - PEG DAILY CATHERINE Hydralazine HCl 50 mg 07/21/18 06:00 Apresoline - PEG TID CATHERINE Sodium Chloride 500 mls @ 80 mls/hr 07/20/18 19:30 07/20/18 20:25 Normal Saline - IV 80 mls/hr ASDIR CATHERINE Administration Ceftriaxone Sodium 1 gm/ 50 mls @ 100 mls/hr 07/21/18 10:00 Dextrose IVPB DAILY [facility] Protocol Lactobacillus Acidophilus 1 tab 07/21/18 10:00 Bacid - PEG BID CATHERINE Levothyroxine Sodium 100 mcg 07/21/18 07:00 Synthroid - PEG DAILY@0700 CATHERINE Loratadine 10 mg 07/21/18 10:00 Claritin - GT DAILY [facility] Metoprolol Tartrate 25 mg 07/21/18 10:00 Lopressor - PEG BID CATHERINE Mirtazapine 7.5 mg 07/21/18 22:00 Remeron - PEG HS CATHERINE Sertraline HCl 50 mg 07/21/18 10:00 Zoloft - PEG DAILY CATHERINE Zinc Sulfate 220 mg 07/21/18 10:00 Orazinc - PEG DAILY [facility] Imaging - Results Chest X-ray: Image Reviewed EKG: Image Reviewed Problem List - Problems (1) Hyponatremia Code(s): E87.1 - HYPO-OSMOLALITY AND HYPONATREMIA (2) Hypothermia Code(s): T68.XXXA - HYPOTHERMIA, INITIAL ENCOUNTER (3) Sepsis Code(s): A41.9 - SEPSIS, UNSPECIFIED ORGANISM (4) Urinary tract infection Code(s): N39.0 - URINARY TRACT INFECTION, SITE NOT SPECIFIED Qualifiers: (5) Acute on chronic respiratory failure with hypoxia and hypercapnia Code(s): J96.21 - ACUTE AND CHRONIC RESPIRATORY FAILURE WITH HYPOXIA; J96.22 - ACUTE AND CHRONIC RESPIRATORY FAILURE WITH HYPERCAPNIA (6) Chronic respiratory failure Code(s): J96.10 - CHRONIC RESPIRATORY FAILURE, UNSP W HYPOXIA OR HYPERCAPNIA (7) Decubital ulcer Code(s): L89.90 - PRESSURE ULCER OF UNSPECIFIED SITE, UNSPECIFIED STAGE Qualifiers: Pressure injury location: unspecified location Pressure injury stage: unspecified pressure injury stage Qualified Code(s): L89.90 - Pressure ulcer of unspecified site, unspecified stage (8) Functional 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 (9) HTN (hypertension) Code(s): I10 - ESSENTIAL (PRIMARY) HYPERTENSION (10) Muscle spasticity Code(s): M62.838 - OTHER MUSCLE SPASM (11) Tracheostomy care Code(s): Z43.0 - ENCOUNTER FOR ATTENTION TO TRACHEOSTOMY (12) Tracheostomy dependence Code(s): Z93.0 - TRACHEOSTOMY STATUS Assessment/Plan This is a 53 y/o woman admitted for Hyponatremia, Hypothermia, Sepsis, UTI for further evaluation of their emergent condition. Plan: Will admit to Vent Floor Blood Cultures- pending Urine Culture-pending Ceftriaxone started in ED will continue Hgb 8.6, no need to transfuse at this time Will transfuse if Hgb < 7.0 Repeat CBC Q6h x2 Repeat BMP Q6h x2 secondary to Hyperkalemia Patient's Lasix stopped however she was still taking K- dur at home EKG reviewed no peaked Ts Appreciate Pulm consult Trach care Trach- O2 Vent HS Appreciate Nephrology consult - Hyponatremia Likely due to medication vs SIADH Urine Osmo, Serum Osmo, Na Urine Continue NS Goal 6-8meq w/24hrs Seizure Precautions Continue enteral feeds Monitor CBC, BMP Monitor vitals Functional Quadriplegia- complete immopbility due to frailty, MS, Requires total care, Turn Q2h, Mendez lift as needed, Heel Protectors, Fall Precautions FEN- Replete lytes prn, Enteral Feedings DVT ppx- SCDs, Heparin SQ monitor CBC closely Dispo: Requires Inpatient Care Visit type - Emergency Visit Emergency Visit: Yes ED Registration Date: 07/20/18 Care time: The patient presented to the Emergency Department on the above date and was hospitalized for further evaluation of their emergent condition. - New Patient This patient is new to me today: Yes Date on this admission: 07/20/18 - Critical Care Critical Care patient: No
[2018-07-20] MEDS ORDERED: clonazePAM 0.5 MG TABLET PEG PRN (23:44)
[2018-07-21 03:05] LABS: BASO % 0.2 % (0-2.0); HEMATOCRIT 25.1 % (32.4-45.2); HEMOGLOBIN 8.1 GM/dL (10.7-15.3); LYMPH % 11.9 % (8-40); MCH 30.5 pg (25.7-33.7); MCHC 32.2 g/dl (32.0-36.0); MEAN CELL VOLUME 94.7 fl (80-96); MEAN PLT VOLUME 8.5 fl (7.5-11.1); MONO % 9.2 % (3.8-10.2); NEUT % 77.7 % (42.8-82.8); PLATELET COUNT 163 K/MM3 (134-434); RBC 2.65 M/mm3 (3.60-5.2); RDW 17.1 % (11.6-15.6); WHITE BLOOD COUNT 5.1 K/mm3 (4.0-10.0)
[2018-07-21 03:23] LABS: CALCIUM 8.1 mg/dL (8.5-10.1); CREATININE 0.4 mg/dL (0.55-1.3)
[2018-07-21] MEDS ORDERED: SODIUM CHLORIDE 500 ML IV SCH (05:16)
[2018-07-21] MEDS: hydrALAZINE HCL 50 MG TABLET (FP) PEG SCH ×3 (06:07→21:02)
[2018-07-21] MEDS: LEVOTHYROXINE NA 100 MCG TABLET (FP) PEG SCH (06:07)
[2018-07-21 07:52] LABS: BASO % 0.1 % (0-2.0); EOS % 0.9 % (0-4.5); HEMATOCRIT 24.6 % (32.4-45.2); HEMOGLOBIN 8.1 GM/dL (10.7-15.3); MEAN CELL VOLUME 93.9 fl (80-96); MEAN PLT VOLUME 8.6 fl (7.5-11.1); PLATELET COUNT 167 K/MM3 (134-434); RBC 2.63 M/mm3 (3.60-5.2); RDW 17.3 % (11.6-15.6); WHITE BLOOD COUNT 6.8 K/mm3 (4.0-10.0)
[2018-07-21 08:54] LABS: CALCIUM 8.8 mg/dL (8.5-10.1); CREATININE 0.3 mg/dL (0.55-1.3); POTASSIUM 4.7 mmol/L (3.5-5.1)
[2018-07-21] MEDS ORDERED: DEXTROSE 5%-WATER - 50 ML IVPB ONE (09:26)
[2018-07-21] MEDS ORDERED: cefTRIAXone SODIUM 1 GM VIAL ONE (09:26)
[2018-07-21] MEDS ORDERED: PT OWN MED DRAWER 7, Y5N ONE ×2 (09:26→13:12)
[2018-07-21] MEDS: CYANOCOBALAMIN 1,000 MCG TABLET (FP) PEG SCH (09:31)
[2018-07-21] MEDS: ZINC SULFATE 220 MG CAPSULE (FP) PEG SCH (09:31)
[2018-07-21] MEDS: SERTRALINE HCL 50 MG TABLET (FP) PEG SCH (09:31)
[2018-07-21] MEDS: LACTOBACILLUS ACIDOPHILUS 1 TABLET PEG SCH ×2 (09:31→21:02)
[2018-07-21] MEDS: ASCORBIC ACID 500 MG TABLET (FP) PEG SCH (09:31)
[2018-07-21] MEDS: LORATADINE 10 MG TABLET GT SCH (09:32)
[2018-07-21] MEDS: METOPROLOL TARTRATE 25 MG TABLET (FP) PEG SCH ×2 (09:32→21:02)
[2018-07-21] MEDS: FOLIC ACID 1 MG TABLET (FP) PEG SCH (09:32)
[2018-07-21] MEDS: CEFTRIAXONE 1 GM in DEXTROSE 5%-WATER - 50 ML IVPB SCH (09:32)
--- NOTE | 2018-07-21 10:29 | CON.PULM ---
Consult Consult Specialty:: PULM/CCM Referred by:: ALAN Reason for Consultation:: Chronic Respiratory Failure - History of Present Illness Chief Complaint: Abnormal labs History of Present Illness: 53 F, well known to me from multiple admissions. Chronic respiratory failure ( normally on mechanical ventilation at night and PRN), MS, functional quadriplegia, Baclofen pump, chronic perera, HTN, HLD, hypothyroidism, and trigeminal neuralgia. Admitted via the ER due to abnormal laboratory data from the outpatient setting. She is awake and alert and responsive on NC O2 with a PMV in place. She reports longer periods of time recently off of mechanical support. (Her aide says she still uses on many nights and sometimes during the day) Denies CP or SOB. Does have some dry cough. No hemoptysis. 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 No: Asthma, Bronchitis , Cancer, COPD, Pulmonary Embolus, Pulmonary Fibrosis, Sleep Apnea Gastrointestinal: Yes: Constipation (chronic) Hepatobiliary: Yes: Cholelithiasis Renal/: Yes: Neurogenic Bladder ( neurogenic bladder, chronic perera catheter) ...LMP: 06/07/12 Infectious Disease: Yes: Other (pneumonia, uti treated by urologist) Musculoskeletal: Yes: Other (Quadraplegia) Dermatology: Yes: Other (chronic decubitus followed by wound care) Additional Medical History: trigeminal neuralgia, baclofen pump. chronic decubitus followed by wound care. neurogenic bladder, chronic perera catheter - Past Surgical History Past Surgical History: Yes: Colonoscopy - Alcohol/Substance Use Hx Alcohol Use: No History of Substance Use: reports: None - Smoking History Smoking history: Never smoked Have you smoked in the past 12 months: No Aproximately how many cigarettes per day: 0 - Social History Usual Living Arrangement: With Parent ADL: Support Services History of Recent Travel: No Home Medications - Allergies Allergies/Adverse Reactions: Allergies Allergy/AdvReac Type Severity Reaction Status Date / Time chloral hydrate Allergy Intermediate Rash Verified 02/26/19 18:54 [Chloral Hydrate] azathioprine [From Imuran] Allergy Rash Verified 05/03/18 18:54 azathioprine sodium Allergy Rash Verified 05/03/18 18:54 [From Imuran] adhesive tape AdvReac Severe sensitivity Verified 05/03/18 18:54 to glue adhesive AdvReac Unknown Verified 05/03/18 18:54 - Home Medications Home Medications: Ambulatory Orders Melatonin 2 mg PO HS 05/03/18 Metoprolol Succinate [Toprol Xl] 50 mg PO BID 05/03/18 Multivitamin [Multiple Vitamins] 1 each PO DAILY 05/03/18 Potassium Chloride [K-Dur -] 20 meq PO DAILY 05/03/18 Albuterol 2.5/Ipratropium 0.5 [Duoneb -] 1 amp NEB Q6H PRN #45 amp 05/28/18 Ascorbic Acid [Vitamin C -] 500 mg PO DAILY #30 tablet 05/28/18 Cyanocobalamin [Vitamin B12 -] 1,000 mcg NGT DAILY #30 tablet 05/28/18 Folic Acid - 1 mg NGT DAILY #30 tablet 05/28/18 Lactobacillus Acidophilus [Bacid -] 1 tab NGT BID #14 tab 05/28/18 Levothyroxine [Synthroid -] 100 mcg NGT DAILY@0700 #30 tablet 05/28/18 Loratadine [Claritin -] 10 mg NGT DAILY #30 tablet 05/28/18 Mirtazapine [Remeron -] 7.5 mg NGT HS #30 tablet 05/28/18 Sertraline HCl [Zoloft -] 50 mg NGT DAILY #30 tablet 05/28/18 Zinc Sulfate [Orazinc -] 220 mg NGT DAILY #30 capsule 05/28/18 hydrALAZINE HCL [Apresoline -] 50 mg NGT TID #90 tablet 05/28/18 Carbamazepine [Tegretol -] 100 mg PO TID 07/20/18 Furosemide 20 mg PO DAILY 07/20/18 Family Disease History - Family Disease History Family Disease History: Diabetes: Sister, Other: Mother Review of Systems - Review of Systems Constitutional: denies: Chills, Fever, Malaise, Night Sweats Eyes: reports: No Symptoms HENT: reports: No Symptoms Neck: reports: No Symptoms Cardiovascular: reports: No Symptoms. denies: Chest Pain, Edema, Palpitations Respiratory: denies: Cough, Hemoptysis, Orthopnea, Snoring, SOB, SOB on Exertion , Wheezing Gastrointestinal: reports: No Symptoms Genitourinary: reports: No Symptoms Breasts: reports: No Symptoms Reported Musculoskeletal: reports: No Symptoms Integumentary: reports: No Symptoms Neurological: reports: No Symptoms Endocrine: reports: No Symptoms Hematology/Lymphatic: reports: No Symptoms Psychiatric: reports: No Symptoms Physical Exam Vital Sings: Vital Signs Temperature 97.6 F 07/21/18 10:01 Pulse Rate 82 07/21/18 10:01 Respiratory Rate 19 07/21/18 10:01 Blood Pressure 140/58 L 07/21/18 10:01 O2 Sat by Pulse Oximetry (%) 98 07/21/18 05:33 Constitutional: Yes: No Distress, Calm Eyes: Yes: Conjunctiva Clear, EOM Intact HENT: Yes: Atraumatic, Normocephalic Neck: Yes: Supple, Trachea Midline, Other (Trach intact ) Cardiovascular: Yes: Regular Rate and Rhythm Respiratory: Yes: Diminished, On Nasal O2. No: Accessory Muscle Use, Rales, Rhonchi, SOB, SOB on Exertion, Stridor, Tachypnea, Wheezes ...Inspection: Yes: WNL ...Clubbing: No Gastrointestinal: Yes: Normal Bowel Sounds, Soft, Other ((+) GT ) Musculoskeletal: Yes: Other (atrophy ) Edema: No Peripheral Pulses WNL: Yes Integumentary: Yes: WNL Neurological: Yes: Alert, Oriented Psychiatric: Yes: Alert, Oriented Labs: CBC, BMP 07/21/18 07:00 07/21/18 07:00 Imaging - Results Chest X-ray: Report Reviewed, Image Reviewed Problem List - Problems (1) Hyponatremia Code(s): E87.1 - HYPO-OSMOLALITY AND HYPONATREMIA (2) Anemia Code(s): D64.9 - ANEMIA, UNSPECIFIED (3) Atelectasis Code(s): J98.11 - ATELECTASIS (4) Chronic respiratory failure Code(s): J96.10 - CHRONIC RESPIRATORY FAILURE, UNSP W HYPOXIA OR HYPERCAPNIA (5) Decubital ulcer Code(s): L89.90 - PRESSURE ULCER OF UNSPECIFIED SITE, UNSPECIFIED STAGE Qualifiers: Pressure injury location: unspecified location Pressure injury stage: unspecified pressure injury stage Qualified Code(s): L89.90 - Pressure ulcer of unspecified site, unspecified stage (6) Depression Code(s): F32.9 - MAJOR DEPRESSIVE DISORDER, SINGLE EPISODE, UNSPECIFIED (7) Electrolyte imbalance Code(s): E87.8 - OTH DISORDERS OF ELECTROLYTE AND FLUID BALANCE, NEC (8) Functional 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 (9) HTN (hypertension) Code(s): I10 - ESSENTIAL (PRIMARY) HYPERTENSION (10) Hx of multiple sclerosis Code(s): Z86.69 - PERSONAL HISTORY OF DIS OF THE NERVOUS SYS AND SENSE ORGANS (11) Multiple sclerosis Code(s): G35 - MULTIPLE SCLEROSIS (12) Neurogenic bladder Code(s): N31.9 - NEUROMUSCULAR DYSFUNCTION OF BLADDER, UNSPECIFIED Assessment/Plan PMV as tolerated Vent orders have been placed for use at night if needed and PRN Follow lytes I & O monitoring VTE prophylaxis Enteral nutrition as tolerated Local wound care Will follow Thank you. Dr Fox
[2018-07-21] MEDS ORDERED: SODIUM CHLORIDE 250 ML IV STA (13:01)
--- NOTE | 2018-07-21 13:08 | CONSULT ---
Consult - text type - Consultation Consultation Note: Renal Consult for Hyponatremia This is a 53 year old woman with history of multiple sclerosis, SIADH , Respiratory failure with trach, neurogenic bladder, HTN, HLD who was resent to ED by PMD for hyponatremia and anemia. Pt was seen by our service on multple prior admissions for low Na. Pt is awake and alert. Has no lethargy, weakness, N /V, confusion or seizures. Reports she was not on salt tabs at home. Gets feeds via G-tube. Denies any fever, chills, abd pain, sob. PMhx: as above Allergies: as listed in EMR Family Hx: NC Social Hx: No T/A/D ROS: As per HPI, all other pertinent ros negative Home Medications Medication Instructions Recorded Melatonin 2 mg PO HS 05/03/18 Metoprolol Succinate [Toprol Xl] 50 mg PO BID 05/03/18 Multivitamin [Multiple Vitamins] 1 each PO DAILY 05/03/18 Potassium Chloride [K-Dur -] 20 meq PO DAILY 05/03/18 Albuterol 2.5/Ipratropium 0.5 1 amp NEB Q6H PRN #45 amp 05/28/18 [Duoneb -] Ascorbic Acid [Vitamin C -] 500 mg PO DAILY #30 tablet 05/28/18 Cyanocobalamin [Vitamin B12 -] 1,000 mcg NGT DAILY #30 tablet 05/28/18 Folic Acid - 1 mg NGT DAILY #30 tablet 05/28/18 Lactobacillus Acidophilus [Bacid -] 1 tab NGT BID #14 tab 05/28/18 Levothyroxine [Synthroid -] 100 mcg NGT DAILY@0700 #30 tablet 05/28/18 Loratadine [Claritin -] 10 mg NGT DAILY #30 tablet 05/28/18 Mirtazapine [Remeron -] 7.5 mg NGT HS #30 tablet 05/28/18 Sertraline HCl [Zoloft -] 50 mg NGT DAILY #30 tablet 05/28/18 Zinc Sulfate [Orazinc -] 220 mg NGT DAILY #30 capsule 05/28/18 hydrALAZINE HCL [Apresoline -] 50 mg NGT TID #90 tablet 05/28/18 Carbamazepine [Tegretol -] 100 mg PO TID 07/20/18 Furosemide 20 mg PO DAILY 07/20/18 Vital Signs Temperature 97.6 F 07/21/18 10:01 Pulse Rate 82 07/21/18 10:01 Respiratory Rate 19 07/21/18 10:01 Blood Pressure 140/58 L 07/21/18 10:01 O2 Sat by Pulse Oximetry (%) 98 07/21/18 09:00 Intake & Output 07/18/18 07/19/18 07/20/18 07/21/18 23:59 23:59 23:59 23:59 Intake Total 42 Output Total 750 Balance -708 Weight 68.039 kg 70.579 kg NAD awake and alert on trach collar RRR course BS, no rales soft NT/ND no LE edema perera in place CBC, BMP 07/21/18 07:00 07/21/18 07:00 Current Medications Albuterol/Ipratropium (Duoneb -) 1 amp NEB Q6H PRN PRN Reason: SHORT OF BREATH/WHEEZING Ascorbic Acid (Vitamin C -) 500 mg PEG DAILY [facility] Last Admin: 07/21/18 09:31 Dose: 500 mg Clonazepam (Klonopin -) 0.5 mg PEG HS PRN PRN Reason: ANXIETY Cyanocobalamin (Vitamin B12 -) 1,000 mcg PEG DAILY [facility] Last Admin: 07/21/18 09:31 Dose: 1,000 mcg Folic Acid (Folic Acid -) 1 mg PEG DAILY [facility] Last Admin: 07/21/18 09:32 Dose: 1 mg Hydralazine HCl (Apresoline -) 50 mg PEG TID [facility] Last Admin: 07/21/18 06:07 Dose: 50 mg Ceftriaxone Sodium 1 gm/ (Dextrose) 50 mls @ 100 mls/hr IVPB DAILY [facility]; Protocol Last Admin: 07/21/18 09:32 Dose: 100 mls/hr Sodium Chloride (Normal Saline -) 250 mls @ 250 mls/hr IV ASDIR STA Stop: 07/21/18 14:00 Sodium Chloride (Normal Saline -) 500 mls @ 84 mls/hr IV ASDIR CATHERINE Lactobacillus Acidophilus (Bacid -) 1 tab PEG BID [facility] Last Admin: 07/21/18 09:31 Dose: 1 tab Levothyroxine Sodium (Synthroid -) 100 mcg PEG DAILY@0700 [facility] Last Admin: 07/21/18 06:07 Dose: 100 mcg Loratadine (Claritin -) 10 mg GT DAILY [facility] Last Admin: 07/21/18 09:32 Dose: 10 mg Metoprolol Tartrate (Lopressor -) 25 mg PEG BID [facility] Last Admin: 07/21/18 09:32 Dose: 25 mg Mirtazapine (Remeron -) 7.5 mg PEG HS [facility] Sertraline HCl (Zoloft -) 50 mg PEG DAILY [facility] Last Admin: 07/21/18 09:31 Dose: 50 mg Zinc Sulfate (Orazinc -) 220 mg PEG DAILY [facility] Last Admin: 07/21/18 09:31 Dose: 220 mg 53 year old woman with history of multiple sclerosis, SIADH, Respiratory failure with trach, neurogenic bladder, HTN, HLD who was resent to ED by PMD for hyponatremia and anemia. #Acute on chronic hyponatremia #Multiple sclerosis #suspected cystitis #Resp failure on trach #HTN #Anemia suspect that hyponatremia is due to total body salt and water depletion in setting of possible infection pt with high BUN/Cr ratio and Na has improved thus far on IVF will give NS bolous 250x 1 and then increase fluid rate to 84cc per hour Repeat BMP this evening to make sure Na improving no indication for #5 saline would restart salt tabs 1g daily for now f/u cultures continue empiric abx as per primary Thank you Will follow Tyshawn Doe DO
--- NOTE | 2018-07-21 14:13 | PN ---
Progress Note, Physician Chief Complaint: Hyponatremia Hypothermia UTI Sepsis History of Present Illness: Previous notes and events reviewed awake and alert NAD no leukocytosis - Current Medication List Current Medications: Active Medications Albuterol/Ipratropium (Duoneb -) 1 amp NEB Q6H PRN PRN Reason: SHORT OF BREATH/WHEEZING Ascorbic Acid (Vitamin C -) 500 mg PEG DAILY [facility] Last Admin: 07/21/18 09:31 Dose: 500 mg Clonazepam (Klonopin -) 0.5 mg PEG HS PRN PRN Reason: ANXIETY Cyanocobalamin (Vitamin B12 -) 1,000 mcg PEG DAILY [facility] Last Admin: 07/21/18 09:31 Dose: 1,000 mcg Folic Acid (Folic Acid -) 1 mg PEG DAILY [facility] Last Admin: 07/21/18 09:32 Dose: 1 mg Hydralazine HCl (Apresoline -) 50 mg PEG TID [facility] Last Admin: 07/21/18 06:07 Dose: 50 mg Ceftriaxone Sodium 1 gm/ (Dextrose) 50 mls @ 100 mls/hr IVPB DAILY [facility]; Protocol Last Admin: 07/21/18 09:32 Dose: 100 mls/hr Sodium Chloride (Normal Saline -) 500 mls @ 84 mls/hr IV ASDIR [facility] Lactobacillus Acidophilus (Bacid -) 1 tab PEG BID [facility] Last Admin: 07/21/18 09:31 Dose: 1 tab Levothyroxine Sodium (Synthroid -) 100 mcg PEG DAILY@0700 [facility] Last Admin: 07/21/18 06:07 Dose: 100 mcg Loratadine (Claritin -) 10 mg GT DAILY [facility] Last Admin: 07/21/18 09:32 Dose: 10 mg Metoprolol Tartrate (Lopressor -) 25 mg PEG BID [facility] Last Admin: 07/21/18 09:32 Dose: 25 mg Mirtazapine (Remeron -) 7.5 mg PEG HS [facility] Sertraline HCl (Zoloft -) 50 mg PEG DAILY [facility] Last Admin: 07/21/18 09:31 Dose: 50 mg Zinc Sulfate (Orazinc -) 220 mg PEG DAILY [facility] Last Admin: 07/21/18 09:31 Dose: 220 mg - Objective Vital Signs: Vital Signs Temperature 97.6 F 07/21/18 10:01 Pulse Rate 82 07/21/18 10:01 Respiratory Rate 19 07/21/18 10:01 Blood Pressure 140/58 L 07/21/18 10:01 O2 Sat by Pulse Oximetry (%) 98 07/21/18 09:00 Constitutional: Yes: No Distress, Calm Eyes: Yes: Conjunctiva Clear HENT: Yes: Atraumatic Neck: Yes: Other (trach) Cardiovascular: Yes: Regular Rate and Rhythm Respiratory: Yes: Rhonchi Gastrointestinal: Yes: Normal Bowel Sounds, Soft Genitourinary: Yes: Incontinence Musculoskeletal: Yes: Muscle Weakness Extremities: Yes: WNL Edema: No Neurological: Yes: Alert, Oriented Psychiatric: Yes: Alert, Oriented Labs: CBC, BMP 07/21/18 07:00 07/21/18 07:00 Microbiology 07/20/18 17:09 Blood - Peripheral Venous Blood Culture - Preliminary NO GROWTH OBTAINED AFTER 24 HOURS, INCUBATION TO CONTINUE FOR 4 DAYS. 07/20/18 17:23 Blood - Peripheral Venous Blood Culture - Preliminary NO GROWTH OBTAINED AFTER 24 HOURS, INCUBATION TO CONTINUE FOR 4 DAYS. Problem List - Problems (1) Hyponatremia Assessment/Plan: -Na 129 -renal on board -IV hydration -monitor electrolyte function daily Code(s): E87.1 - HYPO-OSMOLALITY AND HYPONATREMIA (2) Hypothermia Assessment/Plan: -resolved -monitor temp Code(s): T68.XXXA - HYPOTHERMIA, INITIAL ENCOUNTER (3) Sepsis Assessment/Plan: -no leukocytosis -BC neg -UC neg -LA 0.5 -IV Ceftriaxone -afebrile -ID consult Code(s): A41.9 - SEPSIS, UNSPECIFIED ORGANISM (4) Urinary tract infection Assessment/Plan: -ID consult -UA positive, UC pending -IV Ceftriaxone -no leukocytosis -afebrile Code(s): N39.0 - URINARY TRACT INFECTION, SITE NOT SPECIFIED Qualifiers: (5) Acute on chronic respiratory failure with hypoxia and hypercapnia Assessment/Plan: -pulm on board -trach -mechanical vent HS and PRN -bronchodilators -keep SpO2 >90% Code(s): J96.21 - ACUTE AND CHRONIC RESPIRATORY FAILURE WITH HYPOXIA; J96.22 - ACUTE AND CHRONIC RESPIRATORY FAILURE WITH HYPERCAPNIA (6) Dysphagia Assessment/Plan: -CADD DRAFTER consult for swallow eval -feeding via G tube Code(s): R13.10 - DYSPHAGIA, UNSPECIFIED Qualifiers: Dysphagia type: pharyngoesophageal phase Qualified Code(s): R13.14 - Dysphagia, pharyngoesophageal phase (7) Functional quadriplegia secondary to MS Assessment/Plan: -PT -fall precaution Code(s): G35 - MULTIPLE SCLEROSIS; R53.2 - FUNCTIONAL QUADRIPLEGIA (8) HTN (hypertension) Assessment/Plan: -Hydralazine and Metoprolol Code(s): I10 - ESSENTIAL (PRIMARY) HYPERTENSION (9) Trigeminal neuralgia Assessment/Plan: -neurology consult Code(s): G50.0 - TRIGEMINAL NEURALGIA Assessment/Plan see problem list dvt ppx
[2018-07-21] MEDS: SODIUM CHLORIDE 500 ML IV SCH ×2 (14:24→23:04)
--- NOTE | 2018-07-21 14:26 | EKG ---
Test Reason : Blood Pressure : / mmHG Vent. Rate : 074 BPM Atrial Rate : 074 BPM P-R Int : 192 ms QRS Dur : 112 ms QT Int : 382 ms P-R-T Axes : 053 023 058 degrees QTc Int : 424 ms NORMAL SINUS RHYTHM NORMAL ECG WHEN COMPARED WITH ECG OF 03-MAY-2018 16:57, NO SIGNIFICANT CHANGE WAS FOUND Confirmed by SLOAN LUZ MD ([id number]) on 07/21/2018 2:26:13 PM Referred By: Confirmed By:SLOAN LUZ MD
[2018-07-21] MEDS: MULTIVIT-MINERALS ORAL LIQUID PEG SCH (14:52)
[2018-07-21 15:51] VITALS: BMI 21.6
--- NOTE | 2018-07-21 19:17 | CONSULT ---
Consult - text type - Consultation Consultation Note: NEUROLOGY CONSULT GREATLY APPRECIATED: This 53 yo F is well known to me with advanced MS and trigeminal neuralgia. (TGN ). Patient examined and case discussed with Mother at bedside. Pt. has chronic indwelling perera, tracheostomy and more recently PEG placement for improved nutritional intake. Previously maintained on Tegretol 200 mg TID for TGN. This was self-increased due to reports of worsening facial pain to 200 mg q4H. In routine visit with PCP, levels drawn showing Na level= 125 and now admitted to hospital. Reporting exquisite L sided facial pain, no longer receiving Tegretol. Poor sleep and increasing anxiety surrounding events, especially concerns about respiratory insufficiency. WBC= 13 Ym=494-> 129 On ceftriaxone for presumed UTI but U/A unremarkable GODFREY: Cor reg. Neg. LHermitte's. Trach, perera and PEG in situ. Sacral ulcer. NEURO: Awake, alert, responsive. Ox "[facility]." "June" 2018. TRUMP (talking trache) EOM's full without nystagmus. Full martin. Decreased rapid tongue mvm 'ts. Tetraplegic. Arreflexic. Decreased pinch in all 4's. Impression: Advanced MS Trigeminal Neuralgia (TGN) with hyponatremia secondary to Carbamazepime Generalized Anxiety Suggest: Stat tegretol level Resume CBZ 200 mg via GT q8H Start Lyrica 25 mg via GT qhs x 1, then increase to 25 mg q 8H x 2 days, then increase lyrica to 50 mg 8H hours for TGN Add Clonazepam 0.5 mg via GT q8H standing O2 via vent prn for anxiety Will follow as out-patient to taper CBZ while maintaining patient on Lyrica Thank you very much, Rom Conroy MD
[2018-07-21 20:54] LABS: CALCIUM 8.8 mg/dL (8.5-10.1); CREATININE 0.3 mg/dL (0.55-1.3); POTASSIUM 4.9 mmol/L (3.5-5.1)
[2018-07-21] MEDS: clonazePAM 0.5 MG TABLET PO SCH (21:02)
[2018-07-21] MEDS: MIRTAZAPINE 15 MG TABLET (FP) PEG SCH (21:03)
[2018-07-21] MEDS: carBAMazepine 200 MG/10 ML UNIT-DOSE CUP PO SCH (21:34)
[2018-07-21] MEDS ORDERED: PREGABALIN 25 MG CAPSULE PO ONE (22:00)
[2018-07-22] MEDS: PREGABALIN 25 MG CAPSULE PO SCH ×3 (06:15→22:12)
[2018-07-22] MEDS: LEVOTHYROXINE NA 100 MCG TABLET (FP) PEG SCH (06:15)
[2018-07-22] MEDS: hydrALAZINE HCL 50 MG TABLET (FP) PEG SCH ×3 (06:15→22:13)
[2018-07-22] MEDS: clonazePAM 0.5 MG TABLET PO SCH ×3 (06:15→22:12)
[2018-07-22] MEDS: carBAMazepine 200 MG/10 ML UNIT-DOSE CUP PO SCH ×3 (06:16→22:12)
[2018-07-22 07:28] LABS: HEMATOCRIT 27.4 % (32.4-45.2); MCH 31.1 pg (25.7-33.7); MCHC 32.6 g/dl (32.0-36.0); MEAN CELL VOLUME 95.3 fl (80-96); MEAN PLT VOLUME 8.8 fl (7.5-11.1); PLATELET COUNT 170 K/MM3 (134-434); RBC 2.88 M/mm3 (3.60-5.2); RDW 17.5 % (11.6-15.6); WHITE BLOOD COUNT 7.8 K/mm3 (4.0-10.0)
[2018-07-22 08:08] LABS: ALBUMIN 2.4 g/dl (3.4-5.0); BILIRUBIN,TOTAL 0.3 mg/dL (0.2-1); CALCIUM 8.9 mg/dL (8.5-10.1); CREATININE 0.4 mg/dL (0.55-1.3); MAGNESIUM 2.2 mg/dL (1.8-2.4); PHOSPHOROUS 3.2 mg/dL (2.5-4.9); POTASSIUM 4.9 mmol/L (3.5-5.1); TOT PROT 7.9 g/dl (6.4-8.2)
[2018-07-22] MEDS ORDERED: DEXTROSE 5%-WATER - 50 ML IVPB ONE ×2 (09:49→18:56)
[2018-07-22] MEDS ORDERED: PT OWN MED DRAWER 7, Y5N ONE ×4 (09:49→17:57)
[2018-07-22] MEDS ORDERED: cefTRIAXone SODIUM 1 GM VIAL ONE (09:49)
[2018-07-22] MEDS: LORATADINE 10 MG TABLET GT SCH (09:55)
[2018-07-22] MEDS: CEFTRIAXONE 1 GM in DEXTROSE 5%-WATER - 50 ML IVPB SCH (09:55)
[2018-07-22] MEDS: FOLIC ACID 1 MG TABLET (FP) PEG SCH (09:55)
[2018-07-22] MEDS: LACTOBACILLUS ACIDOPHILUS 1 TABLET PEG SCH ×2 (09:55→22:12)
[2018-07-22] MEDS: SERTRALINE HCL 50 MG TABLET (FP) PEG SCH (09:55)
[2018-07-22] MEDS: ZINC SULFATE 220 MG CAPSULE (FP) PEG SCH (09:55)
[2018-07-22] MEDS: ASCORBIC ACID 500 MG TABLET (FP) PEG SCH (09:55)
[2018-07-22] MEDS: METOPROLOL TARTRATE 25 MG TABLET (FP) PEG SCH ×2 (09:55→22:13)
[2018-07-22] MEDS: CYANOCOBALAMIN 1,000 MCG TABLET (FP) PEG SCH (09:59)
[2018-07-22] MEDS: SODIUM CHLORIDE 500 ML IV SCH (10:07)
--- NOTE | 2018-07-22 10:22 | CONSULT ---
Admitting History and Physical - Primary Care Physician PCP: Anne Lopez - Admission History of Present Illness: 53 F, with pmh of Chronic respiratory failure , MS, functional quadriplegia, Baclofen pump, chronic perera, HTN, HLD, hypothyroidism, and trigeminal neuralgia , Dysphagia, admitted due to abnormal laboratory data from the outpatient setting. Well known to me from multiple admissions, sp/sw tx/mbs. Last MBS- 05/27/18- Trace silent aspiration on nectar thick liquid. REC: Puree/ nectar on tsp Last seen by me during May 2018 admission, at which time a PEG was inserted for improved nutrition, hydration, meds. She has been doing quite well, using PEG nocturnally, and having finely mined food and thin liquid on a tsp during the day. She has been weaned off the vent, rarely using it day or night per her family. She uses the PMV to communicate. Her mother reported she can now talk at night if she needs to. I clarified that PMV needs to removed when sleeping and she said they were not using it at night. (I'm not sure of the accuracy of this.) I also recommended family contact [facility] to obtain a computer, controlled by head movements to insure ability to communicate functionally and control environment but they did not follow through. Nursing reported possible signs of aspiration on water yesterday. Made NPO and Swallow eval ordered. 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 No: Asthma, Bronchitis , Cancer, COPD, Pulmonary Embolus, Pulmonary Fibrosis, Sleep Apnea Gastrointestinal: Yes: Constipation (chronic) Hepatobiliary: Yes: Cholelithiasis Renal/: Yes: Neurogenic Bladder ( neurogenic bladder, chronic perera catheter) ...LMP: 06/07/12 Heme/Onc: Yes: Anemia Infectious Disease: Yes: Other (pneumonia, uti treated by urologist) Musculoskeletal: Yes: Other (Quadraplegia) Dermatology: Yes: Other (chronic decubitus followed by wound care) - Past Surgical History Past Surgical History: Yes: Colonoscopy - Smoking History Smoking history: Never smoked Have you smoked in the past 12 months: No Aproximately how many cigarettes per day: 0 - Alcohol/Substance Use Hx Alcohol Use: No History of Substance Use: reports: None - Social History ADL: Support Services History of Recent Travel: No History - Admission Reason For Visit: URINARY TRACT INFECTION/ HYPNATREMIA/SEPSIS - Diagnostics X-ray: Report Reviewed (CXR: almost completely resolved RLL infiltrates/ atelectasis from previous admission) Modified Barium Swallow: Report Reviewed (Last MBS- 05/27/18- Trace silent aspiration on nectar thick liquid. REC: Puree/nectar on tsp) - General Mental Status: Alert and Oriented, Awake and Alert, Able to Follow Commands Attention: Intact Ability to Follow Directions: Good Head/Neck Control: Needs Assist - Hearing Hearing: Normal Speech Evaluation - Communication Primary Language: CUBAN Communication: Yes: Simple Responses Oral Expression Ability: Yes: Moderate Impairment - Speech Production Intelligibility: Yes: Moderately Impaired - Speech Characteristics Voice Loudness: Moderately Soft/Quiet Voice Phonatory-based Quality: Yes: Dysphonia (Aphonia with PMV with occasional voicing.), Vocal Wetness (intermittent) Nasal Resonance: Normal Articulation: Yes: Imprecise (mild) Voice, Other Observations: Yes: Progressively Weak Voice, Inadequate Breath Support - Swallow Evaluation/Bedside Assessment Current Nutritional Intake: NPO Dentition: Yes: Adequate Facial Symmetry at Rest: Symmetrical Facial Symmetry on Retraction: Symmetrical Jaw Position: Open at Rest Lingual Movement: Symmetric Lingual Speed of Movement: Reduced Lingual Movement Strgth Against Opposition: Reduced Lingual Movement Characteristics: Normal Laryngeal Elevation: Impaired Laryngeal Movement: Reduced Excursion, Labored,delay initiation, Reduced Velocity Chewing: WFL Oral Prep Time: WFL A-P Transit: WFL Pocketing: None Timing of Swallow: Delayed Coughing/Throat Clear: No Change in Voice: Yes (vocal wetness with sips of water on tsp intermittently) Recommendations - Speech Evaluation, Impression/Plan Impression: Pt has been doing quite well with PEG feedings and modified diet at home.CXR improved. Less dependent on vent. Speech production is weaker than her baseline. Swallow delayed. Possible silent aspiration on thin liquid presently with vocal wetness and clear liquid suctioned from trach after drinking yesterday. - Dysphagia Impressions/Plan Dysphagia Impressions: Mild Impairment, Ongoing Evaluation *Silent aspiration: cannot be R/O at bedside Dysphagia Treatment Plan: Small Bites, Chin Tuck/Down, Clear Pocket Food, Safe Rate, 1/2 tsp. at a time, Elevate HOB during feed, Other (Head she supported and flexed at alll times.) Recommendations: Modified Barium Swallow (if congestion increases, NPO,mbs), Other (Discussed with pt's daughter Tiffani [phone] the benefit of an Augmentative communication system for functional communication if pt can not verbalize, and for quality of life, environmental control, etc. She is in agreement and will f/u.) - Recommendations Diet Consistency: Dysphagia Minced Liquids: [place] Thick (on tsp) Supplement: Other (Continue GT feedings nocturnally.)
--- NOTE | 2018-07-22 12:11 | PN ---
Progress Note (short form) - Note Progress Note: PULMONARY Well known to our service Constitutional: Yes: No Distress, Calm Eyes: Yes: Conjunctiva Clear, EOM Intact HENT: Yes: Atraumatic, Normocephalic Neck: Yes: Supple, Trachea Midline, Other (Trach intact ) Cardiovascular: Yes: Regular Rate and Rhythm Respiratory: Yes: Diminished, On Nasal O2. No: Accessory Muscle Use, Rales, Rhonchi, SOB, SOB on Exertion, Stridor, Tachypnea, Wheezes ...Inspection: Yes: WNL ...Clubbing: No Gastrointestinal: Yes: Normal Bowel Sounds, Soft, Other ((+) GT ) Musculoskeletal: Yes: Other (atrophy ) Edema: No Peripheral Pulses WNL: Yes Integumentary: Yes: WNL Neurological: Yes: Alert, Oriented Psychiatric: Yes: Alert, Oriented Labs: reviewed Imaging - Results Chest X-ray: Report Reviewed, Image Reviewed (1) Hyponatremia Code(s): E87.1 - HYPO-OSMOLALITY AND HYPONATREMIA (2) Anemia Code(s): D64.9 - ANEMIA, UNSPECIFIED (3) Atelectasis Code(s): J98.11 - ATELECTASIS (4) Chronic respiratory failure Code(s): J96.10 - CHRONIC RESPIRATORY FAILURE, UNSP W HYPOXIA OR HYPERCAPNIA (5) Decubital ulcer Code(s): L89.90 - PRESSURE ULCER OF UNSPECIFIED SITE, UNSPECIFIED STAGE Qualifiers: Pressure injury location: unspecified location Pressure injury stage: unspecified pressure injury stage Qualified Code(s): L89.90 - Pressure ulcer of unspecified site, unspecified stage (6) Depression Code(s): F32.9 - MAJOR DEPRESSIVE DISORDER, SINGLE EPISODE, UNSPECIFIED (7) Electrolyte imbalance Code(s): E87.8 - OTH DISORDERS OF ELECTROLYTE AND FLUID BALANCE, NEC (8) Functional 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 (9) HTN (hypertension) Code(s): I10 - ESSENTIAL (PRIMARY) HYPERTENSION (10) Hx of multiple sclerosis Code(s): Z86.69 - PERSONAL HISTORY OF DIS OF THE NERVOUS SYS AND SENSE ORGANS (11) Multiple sclerosis Code(s): G35 - MULTIPLE SCLEROSIS (12) Neurogenic bladder Code(s): N31.9 - NEUROMUSCULAR DYSFUNCTION OF BLADDER, UNSPECIFIED Assessment/Plan PMV as tolerated Follow lytes I & O monitoring VTE prophylaxis Enteral nutrition as tolerated Local wound care Will follow Chris TINEO MD
[2018-07-22] MEDS: ALBUTEROL SO4 2.5/IPRATROPIUM 0.5 INH SOL 3 ML VIAL.NEB. NEB PRN ×2 (14:26→22:24)
--- NOTE | 2018-07-22 14:28 | PN ---
Progress Note (short form) - Note Progress Note: Renal follow up for hyponatremia Pt seen and examined at the bedside awake and alert no overnight events mother at the bedside no sob, cp, fever, chills has perera in place Vital Signs Temperature 98.7 F 07/22/18 09:01 Pulse Rate 98 H 07/22/18 14:26 Respiratory Rate 17 07/22/18 09:01 Blood Pressure 130/64 07/22/18 09:01 O2 Sat by Pulse Oximetry (%) 94 L 07/22/18 14:26 Intake & Output 07/19/18 07/20/18 07/21/18 07/22/18 23:59 23:59 23:59 23:59 Intake Total 1002 1260 Output Total 2050 600 Balance -1048 660 Weight 68.039 kg 70.307 kg NAD awake and alert on trach collar RRR course BS, no rales soft NT/ND no LE edema perera in place CBC, BMP 07/22/18 07:00 07/22/18 07:00 Current Medications Albuterol/Ipratropium (Duoneb -) 1 amp NEB Q6H PRN PRN Reason: SHORT OF BREATH/WHEEZING Ascorbic Acid (Vitamin C -) 500 mg PEG DAILY [facility] Last Admin: 07/22/18 09:55 Dose: 500 mg Carbamazepine (Tegretol Oral Suspension -) 200 mg PO TID [facility] Last Admin: 07/22/18 06:16 Dose: 200 mg Clonazepam (Klonopin -) 0.5 mg PEG HS PRN PRN Reason: ANXIETY Clonazepam (Klonopin -) 0.5 mg PO TID [facility] Last Admin: 07/22/18 06:15 Dose: 0.5 mg Cyanocobalamin (Vitamin B12 -) 1,000 mcg PEG DAILY [facility] Last Admin: 07/22/18 09:59 Dose: 1,000 mcg Folic Acid (Folic Acid -) 1 mg PEG DAILY [facility] Last Admin: 07/22/18 09:55 Dose: 1 mg Hydralazine HCl (Apresoline -) 50 mg PEG TID [facility] Last Admin: 07/22/18 06:15 Dose: 50 mg Ceftriaxone Sodium 1 gm/ (Dextrose) 50 mls @ 100 mls/hr IVPB DAILY [facility]; Protocol Last Admin: 07/22/18 09:55 Dose: 100 mls/hr Lactobacillus Acidophilus (Bacid -) 1 tab PEG BID [facility] Last Admin: 07/22/18 09:55 Dose: 1 tab Levothyroxine Sodium (Synthroid -) 100 mcg PEG DAILY@0700 [facility] Last Admin: 07/22/18 06:15 Dose: 100 mcg Loratadine (Claritin -) 10 mg GT DAILY [facility] Last Admin: 07/22/18 09:55 Dose: 10 mg Metoprolol Tartrate (Lopressor -) 25 mg PEG BID [facility] Last Admin: 07/22/18 09:55 Dose: 25 mg Mirtazapine (Remeron -) 7.5 mg PEG HS [facility] Last Admin: 07/21/18 21:03 Dose: 7.5 mg Pregabalin (Lyrica -) 25 mg PO TID [facility] Last Admin: 07/22/18 06:15 Dose: 25 mg Sertraline HCl (Zoloft -) 50 mg PEG DAILY [facility] Last Admin: 07/22/18 09:55 Dose: 50 mg Zinc Sulfate (Orazinc -) 220 mg PEG DAILY [facility] Last Admin: 07/22/18 09:55 Dose: 220 mg 53 year old woman with history of multiple sclerosis, SIADH, Respiratory failure with trach, neurogenic bladder, HTN, HLD who was resent to ED by PMD for hyponatremia and anemia. #Acute on chronic hyponatremia #Multiple sclerosis #suspected cystitis #Resp failure on trach #HTN #Anemia serum Na improved with IVF can discontinue IVF today and monitor Na should restart sodium chloride 1g daily via GT Trend Na daily consulted ID regarding cysitis vs. colonization Thank you Will follow Tyshawn Doe DO
--- NOTE | 2018-07-22 14:28 | PN ---
Progress Note (short form) - Note Progress Note: ID consult dictated imp/reccd 53 yo female with MS, chronic respiratory failure, admitted with hypothermia and hyponatremia and cloudy urine and lethargy started on ceftriaxone for uti- perera was not changed in ED now with resolution of hypothermia and lethargy cxray clear- no pneumonia off ventilator most of the time at home suspect uti as source of infection leading to hypothermia and lethargy hyponatremia may have contributed to lethargy as well suggest replace perera and repeat ua and urine culture today start zosyn after perera is replaced and ua and urince culture are sent d/w patient d/w mother at bedside
--- NOTE | 2018-07-22 14:35 | PN ---
Progress Note, Physician Chief Complaint: patient awake alert wants to go home admitted for hypothermia ,hyponatremia uti - Current Medication List Current Medications: Active Medications Albuterol/Ipratropium (Duoneb -) 1 amp NEB Q6H PRN PRN Reason: SHORT OF BREATH/WHEEZING Last Admin: 07/22/18 14:26 Dose: 1 amp Ascorbic Acid (Vitamin C -) 500 mg PEG DAILY [facility] Last Admin: 07/22/18 09:55 Dose: 500 mg Carbamazepine (Tegretol Oral Suspension -) 200 mg PO TID [facility] Last Admin: 07/22/18 06:16 Dose: 200 mg Clonazepam (Klonopin -) 0.5 mg PEG HS PRN PRN Reason: ANXIETY Clonazepam (Klonopin -) 0.5 mg PO TID [facility] Last Admin: 07/22/18 06:15 Dose: 0.5 mg Cyanocobalamin (Vitamin B12 -) 1,000 mcg PEG DAILY [facility] Last Admin: 07/22/18 09:59 Dose: 1,000 mcg Folic Acid (Folic Acid -) 1 mg PEG DAILY [facility] Last Admin: 07/22/18 09:55 Dose: 1 mg Hydralazine HCl (Apresoline -) 50 mg PEG TID [facility] Last Admin: 07/22/18 06:15 Dose: 50 mg Lactobacillus Acidophilus (Bacid -) 1 tab PEG BID [facility] Last Admin: 07/22/18 09:55 Dose: 1 tab Levothyroxine Sodium (Synthroid -) 100 mcg PEG DAILY@0700 [facility] Last Admin: 07/22/18 06:15 Dose: 100 mcg Loratadine (Claritin -) 10 mg GT DAILY [facility] Last Admin: 07/22/18 09:55 Dose: 10 mg Metoprolol Tartrate (Lopressor -) 25 mg PEG BID [facility] Last Admin: 07/22/18 09:55 Dose: 25 mg Mirtazapine (Remeron -) 7.5 mg PEG HS [facility] Last Admin: 07/21/18 21:03 Dose: 7.5 mg Pregabalin (Lyrica -) 25 mg PO TID [facility] Last Admin: 07/22/18 06:15 Dose: 25 mg Sertraline HCl (Zoloft -) 50 mg PEG DAILY [facility] Last Admin: 07/22/18 09:55 Dose: 50 mg Zinc Sulfate (Orazinc -) 220 mg PEG DAILY [facility] Last Admin: 07/22/18 09:55 Dose: 220 mg - Objective Vital Signs: Vital Signs Temperature 98.7 F 07/22/18 09:01 Pulse Rate 98 H 07/22/18 14:26 Respiratory Rate 17 07/22/18 09:01 Blood Pressure 130/64 07/22/18 09:01 O2 Sat by Pulse Oximetry (%) 94 L 07/22/18 14:26 Constitutional: Yes: Calm Neck: Yes: Other (trach) Cardiovascular: Yes: Regular Rate and Rhythm, S1, S2 Respiratory: Yes: CTA Bilaterally, Other (trach colar) Gastrointestinal: Yes: Normal Bowel Sounds, Soft Edema: No Neurological: Yes: Alert, Oriented, Pre-Existing Deficit Labs: CBC, BMP 07/22/18 07:00 07/22/18 07:00 Problem List - Problems (1) Hyponatremia Assessment/Plan: s/p ivf to start nacl tablet 1 gm daily Code(s): E87.1 - HYPO-OSMOLALITY AND HYPONATREMIA (2) Hypothermia Assessment/Plan: improved Code(s): T68.XXXA - HYPOTHERMIA, INITIAL ENCOUNTER (3) Urinary tract infection Assessment/Plan: replace perera repeat urine culture conite iv abx over the weekend ID on board Code(s): N39.0 - URINARY TRACT INFECTION, SITE NOT SPECIFIED Qualifiers: (4) Hypothyroid Assessment/Plan: syntrhroid check tsh Code(s): E03.9 - HYPOTHYROIDISM, UNSPECIFIED (5) Chronic respiratory failure Assessment/Plan: trach collar Code(s): J96.10 - CHRONIC RESPIRATORY FAILURE, UNSP W HYPOXIA OR HYPERCAPNIA (6) Functional quadriplegia secondary to MS Assessment/Plan: frequent turn position dvt ppx Code(s): G35 - MULTIPLE SCLEROSIS; R53.2 - FUNCTIONAL QUADRIPLEGIA (7) Dysphagia Assessment/Plan: peg tube nutiritoin Code(s): R13.10 - DYSPHAGIA, UNSPECIFIED Qualifiers: Dysphagia type: pharyngoesophageal phase Qualified Code(s): R13.14 - Dysphagia, pharyngoesophageal phase
[2018-07-22] MEDS: MULTIVIT-MINERALS ORAL LIQUID PEG SCH (15:01)
[2018-07-22] MEDS ORDERED: PIPERACILLIN/TAZOBACTAM 3.375 GM VIAL IVPB ONE (18:55)
[2018-07-22] MEDS: PIPERACILLIN/TAZOB 3.375 GM 3.375 GM in DEXTROSE 5%-WATER - 50 ML IVPB SCH (19:01)
--- NOTE | 2018-07-22 19:20 | CONS ---
DATE OF CONSULTATION: DATE OF DICTATION: 07/22/2018 INFECTIOUS DISEASE CONSULTATION HISTORY OF PRESENT ILLNESS: This is a 53-year-old woman well known to our service from prior admission. She has a history of multiple sclerosis, chronic respiratory failure. She requires total care at home with her family. She has a trach and ventilator that she uses as needed, the ventilator. She is now present in the emergency room with hyponatremia, lethargy, and hypothermia. Her family notes that she was much less responsive than usual. In the ER she had cultures drawn. She was given antibiotics, and her sodium was corrected. She is now awake and alert, and her temperature has improved. I am asked to see her because the urine culture is growing multiple organisms. Of note, the ER did not change the Raza that she has chronically at home. She currently has no complaints and is feeling well. PAST MEDICAL HISTORY: Notable for history of MS, hypertension, hyperlipidemia, hypothyroidism, trigeminal neuralgia. She has a history of hyponatremia and SIADH. As well she has chronic respiratory failure and is managed and has a tracheostomy. She also has a baclofen pump and a G-tube that was placed on her last admission. She is allergic to CHLOROHYDRATE, AZATHIOPRINE, ADHESIVE TAPE. MEDICATIONS AT HOME: Include Claritin, Apresoline, Zoloft, K-Dur, melatonin, Synthroid, DuoNeb, vitamin B12, Bacid, folic acid, vitamins, Remeron, Tegretol, and Toprol XL, and Lasix. SOCIAL HISTORY: She lives with her mother. She has 24-hour aids at home. There is no history of cigarette, alcohol, or substance use. There is no recent travel. REVIEW OF SYSTEMS: She has a ventilator, the mother says that they use this p.r.n. at night as needed. She has been doing quite well. She has been tolerating her tube feeds. She has a chronic sacral ulcer for which every [address] Miranda comes to the house. The decubitus ulcer has been improving tremendously. Her Raza catheter was changed a week ago. PHYSICAL EXAMINATION: GENERAL: She is currently awake and alert. VITAL SIGNS: Her temperature is 98.4; she was 92.7 on admission . Blood pressure is 152/72, respiratory rate of 18, heart rate 90, saturating 94%. HEENT: Normocephalic. Eyes are anicteric. NECK: Supple. LUNGS: Clear to auscultation. HEART: Regular rate and rhythm. ABDOMEN: Soft. G-tube site is clean. EXTREMITIES: Without edema. LABORATORY: White count is 7.8, hemoglobin 9, platelets of 170. BUN and creatinine are 17 and 0.4. Urinalysis has 3+ leukocytes with 13 white cells and her blood cultures are negative after 48 hours, urine culture is growing pseudomonas gram negative and a group B strep. Chest x-ray shows no infiltrate. IMPRESSION: In summary, this is a 53-year-old woman admitted with hypothermia and lethargy, I suspect secondary to urinary tract infection as would be hard to explain the hypothermia by the hyponatremia, could certainly be contributing to the lethargy. I would suggest we replace the Raza and repeat a urinalysis and urine culture, would start Zosyn after Raza is replaced, and urinalysis and urine culture are sent. I spoke with the patient and her mother at length regarding her care. Further recommendations to follow. Ventilator management per pulmonary. HANNA VAZ M.D. [id number]
[2018-07-22 20:43] LABS: EPI CELLS 2.4 /HPF (0-5/HPF); HYALINE CASTS 6 /lpf (0-8); PH,URINE 6.5 (5.0-8.0); URINE APPEARANCE CLEAR; URINE BACTERIA 1.9 /hpf (NEGATIVE); URINE BILIRUBIN NEGATIVE (NEGATIVE); URINE COLOR YELLOW; URINE GLUCOSE (UA) NEGATIVE (NEGATIVE); URINE KETONE NEGATIVE (NEGATIVE); URINE LEUK ESTERASE TRACE (NEGATIVE); URINE NITRITE NEGATIVE (NEGATIVE); URINE PROTEIN TRACE (NEGATIVE); URINE RBC 4 /hpf (0-4); URINE UROBILINOGEN 0.2 mg/dL (0.2-1.0); URINE WBC 5 /hpf (0-5)
[2018-07-22] MEDS: MIRTAZAPINE 15 MG TABLET (FP) PEG SCH (22:12)
[2018-07-22] MEDS: SODIUM CHLORIDE 1 GM TABLET GT SCH (22:12)
[2018-07-23] MEDS: PIPERACILLIN/TAZOB 3.375 GM 3.375 GM in DEXTROSE 5%-WATER - 50 ML IVPB SCH ×3 (02:45→17:54)
[2018-07-23] MEDS ORDERED: DEXTROSE 5%-WATER - 50 ML IVPB ONE ×3 (03:01→17:45)
[2018-07-23] MEDS ORDERED: PIPERACILLIN/TAZOBACTAM 3.375 GM VIAL IVPB ONE ×3 (03:01→17:45)
[2018-07-23 04:11] LABS: SERUM IRON SATURATION 23 % (15-55); TOTAL IRON BINDING CAPACITY 240 ug/dL (250-450); UIBC 186 ug/dL (131-425)
[2018-07-23] MEDS: PREGABALIN 25 MG CAPSULE PO SCH ×3 (06:59→22:58)
[2018-07-23] MEDS: hydrALAZINE HCL 50 MG TABLET (FP) PEG SCH ×3 (06:59→22:57)
[2018-07-23] MEDS: clonazePAM 0.5 MG TABLET PO SCH ×3 (06:59→22:57)
[2018-07-23] MEDS: LEVOTHYROXINE NA 100 MCG TABLET (FP) PEG SCH (06:59)
[2018-07-23] MEDS: carBAMazepine 200 MG/10 ML UNIT-DOSE CUP PO SCH ×3 (07:00→22:59)
[2018-07-23 07:40] LABS: ALBUMIN 2.2 g/dl (3.4-5.0); BILIRUBIN,TOTAL 0.2 mg/dL (0.2-1); CALCIUM 8.9 mg/dL (8.5-10.1); CREATININE 0.4 mg/dL (0.55-1.3); POTASSIUM 4.9 mmol/L (3.5-5.1); TOT PROT 7.2 g/dl (6.4-8.2)
[2018-07-23] MEDS ORDERED: PT OWN MED DRAWER 7, Y5N ONE ×2 (10:14→22:33)
[2018-07-23] MEDS: FOLIC ACID 1 MG TABLET (FP) PEG SCH (10:17)
[2018-07-23] MEDS: ZINC SULFATE 220 MG CAPSULE (FP) PEG SCH (10:18)
[2018-07-23] MEDS: SODIUM CHLORIDE 1 GM TABLET GT SCH (10:18)
[2018-07-23] MEDS: SERTRALINE HCL 50 MG TABLET (FP) PEG SCH (10:18)
[2018-07-23] MEDS: CYANOCOBALAMIN 1,000 MCG TABLET (FP) PEG SCH (10:18)
[2018-07-23] MEDS: ASCORBIC ACID 500 MG TABLET (FP) PEG SCH (10:18)
[2018-07-23] MEDS: METOPROLOL TARTRATE 25 MG TABLET (FP) PEG SCH ×2 (10:18→22:58)
[2018-07-23] MEDS: LACTOBACILLUS ACIDOPHILUS 1 TABLET PEG SCH ×2 (10:18→22:57)
[2018-07-23] MEDS: LORATADINE 10 MG TABLET GT SCH (10:18)
[2018-07-23] MEDS: MULTIVIT-MINERALS ORAL LIQUID PEG SCH (10:21)
--- NOTE | 2018-07-23 11:17 | PN ---
Progress Note (short form) - Note Progress Note: Renal follow up for hyponatremia Pt seen and examined at the bedside awake and alert no overnight events mother at the bedside no sob, cp, fever, chills Vital Signs Temperature 97.4 F L 07/23/18 06:00 Pulse Rate 74 07/23/18 08:05 Respiratory Rate 20 07/23/18 06:00 Blood Pressure 137/75 07/23/18 06:00 O2 Sat by Pulse Oximetry (%) 97 07/23/18 08:05 Intake & Output 07/20/18 07/21/18 07/22/18 07/23/18 23:59 23:59 23:59 23:59 Intake Total 1002 2410 100 Output Total 0 1999 300 Balance -1048 410 -200 Weight 68.039 kg 70.307 kg NAD awake and alert on trach collar RRR course BS, no rales soft NT/ND no LE edema perera in place CBC, BMP 07/22/18 07:00 07/23/18 06:00 Current Medications Albuterol/Ipratropium (Duoneb -) 1 amp NEB Q6H PRN PRN Reason: SHORT OF BREATH/WHEEZING Last Admin: 07/22/18 22:24 Dose: 1 amp Ascorbic Acid (Vitamin C -) 500 mg PEG DAILY [facility] Last Admin: 07/23/18 10:18 Dose: 500 mg Carbamazepine (Tegretol Oral Suspension -) 200 mg PO TID [facility] Last Admin: 07/23/18 07:00 Dose: 200 mg Clonazepam (Klonopin -) 0.5 mg PEG HS PRN PRN Reason: ANXIETY Clonazepam (Klonopin -) 0.5 mg PO TID [facility] Last Admin: 07/23/18 06:59 Dose: 0.5 mg Cyanocobalamin (Vitamin B12 -) 1,000 mcg PEG DAILY [facility] Last Admin: 07/23/18 10:18 Dose: 1,000 mcg Folic Acid (Folic Acid -) 1 mg PEG DAILY [facility] Last Admin: 07/23/18 10:17 Dose: 1 mg Hydralazine HCl (Apresoline -) 50 mg PEG TID [facility] Last Admin: 07/23/18 06:59 Dose: 50 mg Piperacillin Sod/Tazobactam (Sod 3.375 gm/ Dextrose) 50 mls @ 100 mls/hr IVPB Q8H-IV [facility]; Protocol Last Admin: 07/23/18 10:17 Dose: 100 mls/hr Lactobacillus Acidophilus (Bacid -) 1 tab PEG BID [facility] Last Admin: 07/23/18 10:18 Dose: 1 tab Levothyroxine Sodium (Synthroid -) 100 mcg PEG DAILY@0700 [facility] Last Admin: 07/23/18 06:59 Dose: 100 mcg Loratadine (Claritin -) 10 mg GT DAILY [facility] Last Admin: 07/23/18 10:18 Dose: 10 mg Metoprolol Tartrate (Lopressor -) 25 mg PEG BID [facility] Last Admin: 07/23/18 10:18 Dose: 25 mg Mirtazapine (Remeron -) 7.5 mg PEG HS [facility] Last Admin: 07/22/18 22:12 Dose: 7.5 mg Pregabalin (Lyrica -) 25 mg PO TID [facility] Last Admin: 07/23/18 06:59 Dose: 25 mg Sertraline HCl (Zoloft -) 50 mg PEG DAILY [facility] Last Admin: 07/23/18 10:18 Dose: 50 mg Sodium Chloride (Sodium Chloride Tablet -) 1 gm GT DAILY [facility] Last Admin: 07/23/18 10:18 Dose: 1 gm Zinc Sulfate (Orazinc -) 220 mg PEG DAILY [facility] Last Admin: 07/23/18 10:18 Dose: 220 mg 53 year old woman with history of multiple sclerosis, SIADH, Respiratory failure with trach, neurogenic bladder, HTN, HLD who was resent to ED by PMD for hyponatremia and anemia. #Acute on chronic hyponatremia #Multiple sclerosis #suspected cystitis #Resp failure on trach #HTN #Anemia serum Na improving continue salt tabs, off IVF continue present tube feeds Abx as per ID Tyshawn Doe DO
--- NOTE | 2018-07-23 13:21 | PN ---
Progress Note, Physician - Current Medication List Current Medications: Active Medications Albuterol/Ipratropium (Duoneb -) 1 amp NEB Q6H PRN PRN Reason: SHORT OF BREATH/WHEEZING Last Admin: 07/22/18 22:24 Dose: 1 amp Ascorbic Acid (Vitamin C -) 500 mg PEG DAILY [facility] Last Admin: 07/23/18 10:18 Dose: 500 mg Carbamazepine (Tegretol Oral Suspension -) 200 mg PO TID [facility] Last Admin: 07/23/18 07:00 Dose: 200 mg Clonazepam (Klonopin -) 0.5 mg PEG HS PRN PRN Reason: ANXIETY Clonazepam (Klonopin -) 0.5 mg PO TID [facility] Last Admin: 07/23/18 06:59 Dose: 0.5 mg Cyanocobalamin (Vitamin B12 -) 1,000 mcg PEG DAILY [facility] Last Admin: 07/23/18 10:18 Dose: 1,000 mcg Folic Acid (Folic Acid -) 1 mg PEG DAILY [facility] Last Admin: 07/23/18 10:17 Dose: 1 mg Hydralazine HCl (Apresoline -) 50 mg PEG TID [facility] Last Admin: 07/23/18 06:59 Dose: 50 mg Piperacillin Sod/Tazobactam (Sod 3.375 gm/ Dextrose) 50 mls @ 100 mls/hr IVPB Q8H-IV [facility]; Protocol Last Admin: 07/23/18 10:17 Dose: 100 mls/hr Lactobacillus Acidophilus (Bacid -) 1 tab PEG BID [facility] Last Admin: 07/23/18 10:18 Dose: 1 tab Levothyroxine Sodium (Synthroid -) 100 mcg PEG DAILY@0700 [facility] Last Admin: 07/23/18 06:59 Dose: 100 mcg Loratadine (Claritin -) 10 mg GT DAILY [facility] Last Admin: 07/23/18 10:18 Dose: 10 mg Metoprolol Tartrate (Lopressor -) 25 mg PEG BID [facility] Last Admin: 07/23/18 10:18 Dose: 25 mg Mirtazapine (Remeron -) 7.5 mg PEG HS [facility] Last Admin: 07/22/18 22:12 Dose: 7.5 mg Pregabalin (Lyrica -) 25 mg PO TID [facility] Last Admin: 07/23/18 06:59 Dose: 25 mg Sertraline HCl (Zoloft -) 50 mg PEG DAILY [facility] Last Admin: 07/23/18 10:18 Dose: 50 mg Sodium Chloride (Sodium Chloride Tablet -) 1 gm GT DAILY [facility] Last Admin: 07/23/18 10:18 Dose: 1 gm Zinc Sulfate (Orazinc -) 220 mg PEG DAILY [facility] Last Admin: 07/23/18 10:18 Dose: 220 mg - Objective Vital Signs: Vital Signs Temperature 96.5 F L 07/23/18 12:00 Pulse Rate 94 H 07/23/18 12:00 Respiratory Rate 20 07/23/18 12:00 Blood Pressure 116/68 07/23/18 12:00 O2 Sat by Pulse Oximetry (%) 98 07/23/18 11:48 Cardiovascular: Yes: Regular Rate and Rhythm Respiratory: Yes: Regular, CTA Bilaterally Gastrointestinal: Yes: Normal Bowel Sounds, Soft Labs: CBC, BMP 07/22/18 07:00 07/23/18 06:00 Assessment/Plan - Problems (1) Hyponatremia Assessment/Plan: s/p ivf to start nacl tablet 1 gm daily Code(s): E87.1 - HYPO-OSMOLALITY AND HYPONATREMIA (2) Hypothermia Assessment/Plan: improved Code(s): T68.XXXA - HYPOTHERMIA, INITIAL ENCOUNTER (3) Urinary tract infection Assessment/Plan: replace perera repeat urine culture conite iv abx over the weekend ID on board Code(s): N39.0 - URINARY TRACT INFECTION, SITE NOT SPECIFIED Qualifiers: (4) Hypothyroid Assessment/Plan: syntrhroid check tsh Code(s): E03.9 - HYPOTHYROIDISM, UNSPECIFIED (5) Chronic respiratory failure Assessment/Plan: trach collar Code(s): J96.10 - CHRONIC RESPIRATORY FAILURE, UNSP W HYPOXIA OR HYPERCAPNIA (6) Functional quadriplegia secondary to MS Assessment/Plan: frequent turn position dvt ppx Code(s): G35 - MULTIPLE SCLEROSIS; R53.2 - FUNCTIONAL QUADRIPLEGIA (7) Dysphagia Assessment/Plan: peg tube nutiritoin Code(s): R13.10 - DYSPHAGIA, UNSPECIFIED Qualifiers: Dysphagia type: pharyngoesophageal phase Qualified Code(s): R13.14 - Dysphagia, pharyngoesophageal phase
[2018-07-23] MEDS: ALBUTEROL SO4 2.5/IPRATROPIUM 0.5 INH SOL 3 ML VIAL.NEB. NEB PRN ×2 (14:03→21:25)
[2018-07-23] MEDS: MIRTAZAPINE 15 MG TABLET (FP) PEG SCH (22:58)
[2018-07-24] MEDS ORDERED: PIPERACILLIN/TAZOBACTAM 3.375 GM VIAL IVPB ONE ×3 (02:08→15:56)
[2018-07-24] MEDS ORDERED: DEXTROSE 5%-WATER - 50 ML IVPB ONE ×3 (02:09→15:56)
[2018-07-24] MEDS: PIPERACILLIN/TAZOB 3.375 GM 3.375 GM in DEXTROSE 5%-WATER - 50 ML IVPB SCH ×3 (02:23→17:05)
[2018-07-24] MEDS ORDERED: PT OWN MED DRAWER 7, Y5N ONE ×5 (06:33→21:28)
[2018-07-24] MEDS: clonazePAM 0.5 MG TABLET PO SCH (06:35)
[2018-07-24] MEDS: PREGABALIN 25 MG CAPSULE PO SCH ×3 (06:37→21:36)
[2018-07-24] MEDS: hydrALAZINE HCL 50 MG TABLET (FP) PEG SCH ×3 (06:37→21:37)
[2018-07-24] MEDS: LEVOTHYROXINE NA 100 MCG TABLET (FP) PEG SCH (06:38)
[2018-07-24] MEDS: carBAMazepine 200 MG/10 ML UNIT-DOSE CUP PO SCH ×3 (06:38→21:38)
[2018-07-24 07:15] LABS: BASO % 0.2 % (0-2.0); EOS % 6.7 % (0-4.5); HEMATOCRIT 24.3 % (32.4-45.2); HEMOGLOBIN 7.9 GM/dL (10.7-15.3); LYMPH % 11.3 % (8-40); MCH 31.2 pg (25.7-33.7); MCHC 32.6 g/dl (32.0-36.0); MEAN CELL VOLUME 95.8 fl (80-96); MEAN PLT VOLUME 8.6 fl (7.5-11.1); MONO % 10.7 % (3.8-10.2); NEUT % 71.1 % (42.8-82.8); PLATELET COUNT 141 K/MM3 (134-434); RBC 2.54 M/mm3 (3.60-5.2); RDW 17.7 % (11.6-15.6); WHITE BLOOD COUNT 5.2 K/mm3 (4.0-10.0)
[2018-07-24 09:11] LABS: ALBUMIN 2.3 g/dl (3.4-5.0); BILIRUBIN,TOTAL 0.2 mg/dL (0.2-1); CALCIUM 9.4 mg/dL (8.5-10.1); CREATININE 0.5 mg/dL (0.55-1.3); POTASSIUM 5.2 mmol/L (3.5-5.1); TOT PROT 7.6 g/dl (6.4-8.2)
[2018-07-24] MEDS ORDERED: FUROSEMIDE 40 MG/4 ML INJECTABLE VIAL IVPUSH ONE (10:02)
--- NOTE | 2018-07-24 10:03 | PN ---
Progress Note, Physician - Current Medication List Current Medications: Active Medications Albuterol/Ipratropium (Duoneb -) 1 amp NEB Q6H PRN PRN Reason: SHORT OF BREATH/WHEEZING Last Admin: 07/23/18 21:25 Dose: 1 amp Ascorbic Acid (Vitamin C -) 500 mg PEG DAILY [facility] Last Admin: 07/23/18 10:18 Dose: 500 mg Carbamazepine (Tegretol Oral Suspension -) 200 mg PO TID [facility] Last Admin: 07/24/18 06:38 Dose: 200 mg Clonazepam (Klonopin -) 0.5 mg PO TID [facility] Last Admin: 07/24/18 06:35 Dose: Not Given Cyanocobalamin (Vitamin B12 -) 1,000 mcg PEG DAILY [facility] Last Admin: 07/23/18 10:18 Dose: 1,000 mcg Folic Acid (Folic Acid -) 1 mg PEG DAILY [facility] Last Admin: 07/23/18 10:17 Dose: 1 mg Hydralazine HCl (Apresoline -) 50 mg PEG TID [facility] Last Admin: 07/24/18 06:37 Dose: 50 mg Piperacillin Sod/Tazobactam (Sod 3.375 gm/ Dextrose) 50 mls @ 100 mls/hr IVPB Q8H-IV [facility]; Protocol Last Admin: 07/24/18 02:23 Dose: 100 mls/hr Lactobacillus Acidophilus (Bacid -) 1 tab PEG BID [facility] Last Admin: 07/23/18 22:57 Dose: 1 tab Levothyroxine Sodium (Synthroid -) 100 mcg PEG DAILY@0700 [facility] Last Admin: 07/24/18 06:38 Dose: 100 mcg Loratadine (Claritin -) 10 mg GT DAILY [facility] Last Admin: 07/23/18 10:18 Dose: 10 mg Metoprolol Tartrate (Lopressor -) 25 mg PEG BID [facility] Last Admin: 07/23/18 22:58 Dose: 25 mg Mirtazapine (Remeron -) 7.5 mg PEG HS [facility] Last Admin: 07/23/18 22:58 Dose: 7.5 mg Pregabalin (Lyrica -) 25 mg PO TID [facility] Last Admin: 07/24/18 06:37 Dose: 25 mg Sertraline HCl (Zoloft -) 50 mg PEG DAILY [facility] Last Admin: 07/23/18 10:18 Dose: 50 mg Sodium Chloride (Sodium Chloride Tablet -) 1 gm GT DAILY [facility] Last Admin: 07/23/18 10:18 Dose: 1 gm Zinc Sulfate (Orazinc -) 220 mg PEG DAILY [facility] Last Admin: 07/23/18 10:18 Dose: 220 mg - Objective Vital Signs: Vital Signs Temperature 96.4 F L 07/24/18 06:34 Pulse Rate 65 07/24/18 07:59 Respiratory Rate 20 07/24/18 06:00 Blood Pressure 132/59 L 07/24/18 06:00 O2 Sat by Pulse Oximetry (%) 100 07/24/18 07:59 Cardiovascular: Yes: S1, S2 Respiratory: Yes: Regular, CTA Bilaterally Gastrointestinal: Yes: Normal Bowel Sounds, Soft Labs: CBC, BMP 07/24/18 06:00 07/24/18 06:00 Assessment/Plan - Problems (1) Hyponatremia Assessment/Plan: s/p ivf to start nacl tablet 1 gm daily Code(s): E87.1 - HYPO-OSMOLALITY AND HYPONATREMIA (2) Hypothermia Assessment/Plan: improved Code(s): T68.XXXA - HYPOTHERMIA, INITIAL ENCOUNTER (3) Urinary tract infection Assessment/Plan: replace perera repeat urine culture conite iv abx over the weekend ID on board Code(s): N39.0 - URINARY TRACT INFECTION, SITE NOT SPECIFIED Qualifiers: (4) Hypothyroid Assessment/Plan: syntrhroid check tsh Code(s): E03.9 - HYPOTHYROIDISM, UNSPECIFIED (5) Chronic respiratory failure Assessment/Plan: trach collar Code(s): J96.10 - CHRONIC RESPIRATORY FAILURE, UNSP W HYPOXIA OR HYPERCAPNIA (6) Functional quadriplegia secondary to MS Assessment/Plan: frequent turn position dvt ppx Code(s): G35 - MULTIPLE SCLEROSIS; R53.2 - FUNCTIONAL QUADRIPLEGIA (7) Dysphagia Assessment/Plan: peg tube nutiritoin Code(s): R13.10 - DYSPHAGIA, UNSPECIFIED Qualifiers: Dysphagia type: pharyngoesophageal phase Qualified Code(s): R13.14 - Dysphagia, pharyngoesophageal phase (8) Anemia Assessment/Plan: prbc gi
[2018-07-24] MEDS: ALBUTEROL SO4 2.5/IPRATROPIUM 0.5 INH SOL 3 ML VIAL.NEB. NEB PRN ×2 (11:30→20:50)
[2018-07-24] MEDS: METOPROLOL TARTRATE 25 MG TABLET (FP) PEG SCH ×2 (11:36→21:36)
[2018-07-24] MEDS: LORATADINE 10 MG TABLET GT SCH (11:36)
[2018-07-24] MEDS: FOLIC ACID 1 MG TABLET (FP) PEG SCH (11:36)
[2018-07-24] MEDS: CYANOCOBALAMIN 1,000 MCG TABLET (FP) PEG SCH (11:36)
[2018-07-24] MEDS: SERTRALINE HCL 50 MG TABLET (FP) PEG SCH (11:36)
[2018-07-24] MEDS: ZINC SULFATE 220 MG CAPSULE (FP) PEG SCH (11:36)
[2018-07-24] MEDS: LACTOBACILLUS ACIDOPHILUS 1 TABLET PEG SCH ×2 (11:37→21:36)
[2018-07-24] MEDS: ASCORBIC ACID 500 MG TABLET (FP) PEG SCH (11:37)
[2018-07-24] MEDS: SODIUM CHLORIDE 1 GM TABLET GT SCH (11:40)
--- NOTE | 2018-07-24 14:23 | PN ---
Progress Note (short form) - Note Progress Note: receiving transfusion NAD repeat urine culture after perera change is negative (prior to zosyn) Vital Signs Period Temp Pulse Resp BP Sys/Morillo Pulse Ox Last 24 Hr 95.8 F-97.4 F 65-84 18-20 105-132/52-59 98-100 traach to vent cor-rrr lungs clear abd soft,nt ext no edema CBC, BMP 07/24/18 06:00 07/24/18 06:00 Microbiology 07/22/18 18:30 Urine - Urine Perera Urine Culture - Final 07/20/18 17:09 Blood - Peripheral Venous Blood Culture - Preliminary NO GROWTH OBTAINED AFTER 72 HOURS, INCUBATION TO CONTINUE FOR 2 DAYS. 07/20/18 17:23 Blood - Peripheral Venous Blood Culture - Preliminary NO GROWTH OBTAINED AFTER 72 HOURS, INCUBATION TO CONTINUE FOR 2 DAYS. 07/20/18 18:13 Urine - Urine - Catheterized Urine Culture - Final Pseudomonas Aeruginosa Proteus Mirabilis Klebsiella Pneumoniae Group D Strep Or Entero Coccus imp/reccd 53 yo female with MS, chronic respiratory failure, admitted with hypothermia and hyponatremia and cloudy urine and lethargy can switch to ceftin in am 500 bid for 7 days for possible UTI- anemia- transfusion MS with chronic resp failure - on vent please call back if needed
[2018-07-24] MEDS ORDERED: FUROSEMIDE 40 MG/4 ML INJECTABLE VIAL ONE (14:47)
[2018-07-24] MEDS: MULTIVIT-MINERALS ORAL LIQUID PEG SCH (15:42)
[2018-07-24] MEDS: MIRTAZAPINE 15 MG TABLET (FP) PEG SCH (21:37)
[2018-07-25] MEDS ORDERED: PIPERACILLIN/TAZOBACTAM 3.375 GM VIAL IVPB ONE ×2 (01:32→10:36)
[2018-07-25] MEDS ORDERED: DEXTROSE 5%-WATER - 50 ML IVPB ONE ×2 (01:32→10:36)
[2018-07-25] MEDS: PIPERACILLIN/TAZOB 3.375 GM 3.375 GM in DEXTROSE 5%-WATER - 50 ML IVPB SCH ×2 (01:54→10:56)
[2018-07-25] MEDS: PREGABALIN 25 MG CAPSULE PO SCH (06:15)
[2018-07-25] MEDS: carBAMazepine 200 MG/10 ML UNIT-DOSE CUP PO SCH (06:16)
[2018-07-25] MEDS: hydrALAZINE HCL 50 MG TABLET (FP) PEG SCH ×2 (06:16→13:59)
[2018-07-25 06:35] LABS: BASO % 0.1 % (0-2.0); EOS % 5.6 % (0-4.5); HEMATOCRIT 27.3 % (32.4-45.2); HEMOGLOBIN 9.1 GM/dL (10.7-15.3); LYMPH % 10.3 % (8-40); MCH 30.8 pg (25.7-33.7); MCHC 33.2 g/dl (32.0-36.0); MEAN CELL VOLUME 92.8 fl (80-96); MEAN PLT VOLUME 8.5 fl (7.5-11.1); MONO % 9.7 % (3.8-10.2); NEUT % 74.3 % (42.8-82.8); PLATELET COUNT 160 K/MM3 (134-434); RBC 2.95 M/mm3 (3.60-5.2); RDW 18.7 % (11.6-15.6); WHITE BLOOD COUNT 5.1 K/mm3 (4.0-10.0)
[2018-07-25] MEDS: LEVOTHYROXINE NA 100 MCG TABLET (FP) PEG SCH (06:39)
[2018-07-25 07:03] LABS: ALBUMIN 2.3 g/dl (3.4-5.0); BILIRUBIN,TOTAL 0.2 mg/dL (0.2-1); CALCIUM 8.6 mg/dL (8.5-10.1); CREATININE 0.5 mg/dL (0.55-1.3); TOT PROT 7.8 g/dl (6.4-8.2)
--- NOTE | 2018-07-25 10:38 | PN ---
Progress Note (short form) - Note Progress Note: NEUROLOGY PROGRESS: Events reviewed and discussed with staff and ORQUIDEA Arboleda. Mother at bedside. Mother notes daughter with daytime fatigue, so klonopin 0.5 mg q8H dc'd. Kiley notes it helps her sleep and still reporting some anxiety. Now on Tegretol 200 mg Q 8H and Lyrica 25 mg Q8H for Trigeminal Neuralgia. (TGN) . Anticipating facial pain with oral feeds. On Zosyn for positive Urine culture with >100,000 polyorganisms. Also to resume NaCL tablets upon discharge. H/H 7.9/24.3 -> 9.1/27.3 s/p 1 PRBC; NA 138; TSH 4.54; CBZ= 4.6 GODFREY: Cor reg. Neg. LHermitte's. Trach, perera and PEG in situ. Sacral ulcer. NEURO: Awake, alert, responsive. (talking trache) EOM's full without nystagmus. Full martin. Decreased rapid tongue mvm 'ts. Tetraplegic. Arreflexic. Decreased pinch in all 4's. Impression: Advanced MS Trigeminal Neuralgia (TGN) with hyponatremia secondary to Carbamazepime Generalized Anxiety Suggest: Continue CBZ 200 mg via GT q8H Increase lyrica to 50 mg 8H hours for TGN Resume Clonazepam 0.5 mg po qhs - q 12H (PRN) Adjust tx for hypothyroidism as indicated Will follow as out-patient to taper CBZ while maintaining patient on Lyrica, once facial pains are controlled. Thank you very much, Rom Conroy MD
[2018-07-25] MEDS ORDERED: carBAMazepine 200 MG/10 ML UNIT-DOSE CUP GT SCH (10:46)
[2018-07-25] MEDS: SODIUM CHLORIDE 1 GM TABLET GT SCH (10:56)
[2018-07-25] MEDS: LORATADINE 10 MG TABLET GT SCH (10:57)
[2018-07-25] MEDS: ASCORBIC ACID 500 MG TABLET (FP) PEG SCH (10:57)
[2018-07-25] MEDS: CYANOCOBALAMIN 1,000 MCG TABLET (FP) PEG SCH (10:57)
[2018-07-25] MEDS: METOPROLOL TARTRATE 25 MG TABLET (FP) PEG SCH (10:57)
[2018-07-25] MEDS: LACTOBACILLUS ACIDOPHILUS 1 TABLET PEG SCH (10:57)
[2018-07-25] MEDS: SERTRALINE HCL 50 MG TABLET (FP) PEG SCH (10:57)
[2018-07-25] MEDS: ZINC SULFATE 220 MG CAPSULE (FP) PEG SCH (10:57)
[2018-07-25] MEDS: FOLIC ACID 1 MG TABLET (FP) PEG SCH (10:57)
[2018-07-25] MEDS ORDERED: PT OWN MED DRAWER 7, Y5N ONE ×2 (11:03→13:43)
[2018-07-25] MEDS: ALBUTEROL SO4 2.5/IPRATROPIUM 0.5 INH SOL 3 ML VIAL.NEB. NEB PRN (11:34)
--- NOTE | 2018-07-25 12:28 | PN ---
Progress Note (short form) - Note Progress Note: PULMONARY Denies shortness of breath, cough or wheezing. Tolerating trach collar. Vital Signs Period Temp Pulse Resp BP Sys/Morillo Pulse Ox Last 24 Hr 97.2 F-97.6 F 60-88 18-18 95-143/35-69 98-100 Gen: NAD on trach collar Heart: RRR Lung: scattered rhonchi Abd: soft, nontender Ext: no edema CBC, BMP 07/25/18 05:55 07/25/18 05:55 Active Medications Albuterol/Ipratropium (Duoneb -) 1 amp NEB Q6H PRN PRN Reason: SHORT OF BREATH/WHEEZING Last Admin: 07/25/18 11:34 Dose: 1 amp Ascorbic Acid (Vitamin C -) 500 mg PEG DAILY [facility] Last Admin: 07/25/18 10:57 Dose: 500 mg Carbamazepine (Tegretol Oral Suspension -) 200 mg GT TID [facility] Cefuroxime Axetil (Ceftin Oral Suspension -) 500 mg PO BID [facility] Stop: 08/01/18 12:29 Clonazepam (Klonopin -) 0.5 mg PO ONCE ONE Stop: 07/25/18 22:01 Cyanocobalamin (Vitamin B12 -) 1,000 mcg PEG DAILY [facility] Last Admin: 07/25/18 10:57 Dose: 1,000 mcg Folic Acid (Folic Acid -) 1 mg PEG DAILY [facility] Last Admin: 07/25/18 10:57 Dose: 1 mg Hydralazine HCl (Apresoline -) 50 mg PEG TID [facility] Last Admin: 07/25/18 06:16 Dose: 50 mg Lactobacillus Acidophilus (Bacid -) 1 tab PEG BID [facility] Last Admin: 07/25/18 10:57 Dose: 1 tab Levothyroxine Sodium (Synthroid -) 100 mcg PEG DAILY@0700 [facility] Last Admin: 07/25/18 06:39 Dose: 100 mcg Loratadine (Claritin -) 10 mg GT DAILY [facility] Last Admin: 07/25/18 10:57 Dose: 10 mg Metoprolol Tartrate (Lopressor -) 25 mg PEG BID [facility] Last Admin: 07/25/18 10:57 Dose: 25 mg Mirtazapine (Remeron -) 7.5 mg PEG HS [facility] Last Admin: 07/24/18 21:37 Dose: 7.5 mg Pregabalin (Lyrica -) 50 mg PO TID [facility] Sertraline HCl (Zoloft -) 50 mg PEG DAILY [facility] Last Admin: 07/25/18 10:57 Dose: 50 mg Sodium Chloride (Sodium Chloride Tablet -) 1 gm GT DAILY [facility] Last Admin: 07/25/18 10:56 Dose: 1 gm Zinc Sulfate (Orazinc -) 220 mg PEG DAILY [facility] Last Admin: 07/25/18 10:57 Dose: 220 mg A/P Chronic Respiratory Failure Multiple Sclerosis SIADH HTN Hyperlipidemia Sacral Decubitus Ulcers Anemia - complete antibiotics - aspiration precautions - inhaled bronchodilators as needed - O2 to keep SpO2 >90% - DVT prophylaxis
[2018-07-25] MEDS ORDERED: CEFUROXIME AXETIL 250 MG/5 ML BOTTLE PO SCH (12:30)
[2018-07-25] MEDS ORDERED: CEFUROXIME AXETIL 500 MG TABLET PO SCH (12:30)
--- NOTE | 2018-07-25 13:00 | PN ---
Progress Note, LICENSED ARCHITECT - Note Progress Note: PO diet not ordered. On PEG feedings. Pending d/c home today. Complaining about facial pain. Pt has nasal o2. O2 sat 89-90. Suggest trial of supplemental o2 to trach region fo9r improved comfort and oxygenation. Although pt/family agreed with o2 to trach site, they refused once RT arrived.O2 was at 99% per RT.
--- NOTE | 2018-07-25 13:18 | DS ---
"Physical Examination Vital Signs: Vital Signs Temperature 97.5 F L 07/25/18 09:55 Pulse Rate 88 07/25/18 11:34 Respiratory Rate 18 07/25/18 09:55 Blood Pressure 129/69 07/25/18 09:55 O2 Sat by Pulse Oximetry (%) 100 07/25/18 11:34 Findings/Remarks: Patient is a 53 y/o with past medical history MS s/p Trach (vent), Trigeminal Neuralgia, neurogenic bladder, HTN, HLD, Hypothyroidism. Patient presented to ER with mother after sent in by PCP office for Anemia and Hyponatremia. Patient mother states that Hg and Na level were low from recent blood work. Patient has also been complaining of facial pain. Mother reports that white discharge was noted in FC. Due to her MS patient will need a semi electric hospital bed with pressure mattress powered (low air loss). Patient has limited mobility due to her MS and multiple wounds. She requires frequent body position changes which she cannot complete independently and this is not feasable with a regular bed to alleviate pain, prevent aspiration, and prevent further skin breakdown. Decubiti ulcer Right Upper Posterior Back 2cm x 3cm, R lateral back 7cm x 5cm, Left sacrum 4cm x 2.5cm, Medial Sacrum 5cm x 3cm. Constitutional: Yes: No Distress, Calm Eyes: Yes: Conjunctiva Clear HENT: Yes: Atraumatic Neck: Yes: Other (trach) Cardiovascular: Yes: Regular Rate and Rhythm Respiratory: Yes: Regular, CTA Bilaterally Gastrointestinal: Yes: Normal Bowel Sounds, Soft Renal/: Yes: Raza Present Musculoskeletal: Yes: Muscle Weakness Extremities: Yes: WNL Edema: No Neurological: Yes: Alert, Pre-Existing Deficit Psychiatric: Yes: Alert, Oriented Labs: CBC, BMP 07/25/18 05:55 07/25/18 05:55 Discharge Summary Reason For Visit: URINARY TRACT INFECTION/ HYPNATREMIA/SEPSIS Current Active Problems Hyponatremia (Acute) Hypothermia (Acute) Hypothyroid (Acute) Sepsis (Acute) Urinary tract infection (Acute) Hospital Course: see progress notes Laboratory Tests 07/20/18 07/20/18 07/20/18 17:15 17:23 17:23 WBC RBC Hgb Hct MCV MCH MCHC RDW Plt Count MPV Absolute Neuts (auto) Neutrophils % Lymphocytes % Monocytes % Eosinophils % Basophils % Nucleated RBC % Sodium 125 L Potassium 5.4 H Chloride 89 L Carbon Dioxide 32 Anion Gap 4 L BUN 22 H Creatinine 0.3 L Est GFR (CKD-EPI)AfAm 150.44 Est GFR (CKD-EPI)NonAf 129.80 POC Glucometer Random Glucose 74 Serum Osmolality Lactic Acid 0.5 Calcium 8.8 Phosphorus Magnesium Iron TIBC Iron Saturation Ferritin Total Bilirubin 0.2 AST 26 ALT 29 Alkaline Phosphatase 164 H Total Protein 8.1 Albumin 2.6 L TSH Urine Color Urine Appearance Urine pH Ur Specific [place] Urine Protein Urine Glucose (UA) Urine Ketones Urine Blood Urine Nitrite Urine Bilirubin Urine Urobilinogen Ur Leukocyte Esterase Urine WBC (Auto) Urine RBC (Auto) Urine Casts (Auto) U Epithel Cells (Auto) U Sm Round Cell (Auto) Urine Bacteria (Auto) Urine Osmolality Ur Random Sodium Stool Occult Blood Negative Carbamazepine Blood Type Antibody Screen Crossmatch 07/20/18 07/20/18 07/21/18 17:23 18:13 00:30 WBC 8.0 RBC 2.81 L Hgb 8.7 L Hct 26.6 L MCV 94.6 MCH 30.8 MCHC 32.6 RDW 17.6 H Plt Count 168 D MPV 8.9 Absolute Neuts (auto) 7.1 Neutrophils % 88.5 H D Lymphocytes % 6.1 L D Monocytes % 4.7 Eosinophils % 0.6 D Basophils % 0.1 Nucleated RBC % 0 Sodium Potassium Chloride Carbon Dioxide Anion Gap BUN Creatinine Est GFR (CKD-EPI)AfAm Est GFR (CKD-EPI)NonAf POC Glucometer Random Glucose Serum Osmolality Lactic Acid Calcium Phosphorus Magnesium Iron TIBC Iron Saturation Ferritin Total Bilirubin AST ALT Alkaline Phosphatase Total Protein Albumin TSH Urine Color Yellow Urine Appearance Cloudy Urine pH >= 9.0 H Ur Specific [place] 1.016 Urine Protein 2+ H Urine Glucose (UA) Negative Urine Ketones Negative Urine Blood Negative Urine Nitrite Positive H Urine Bilirubin Negative Urine Urobilinogen 0.2 Ur Leukocyte Esterase 3+ H Urine WBC (Auto) 13 Urine RBC (Auto) 1 Urine Casts (Auto) 5 U Epithel Cells (Auto) 12.2 U Sm Round Cell (Auto) Review A* Urine Bacteria (Auto) 1693.4 Urine Osmolality 469 Ur Random Sodium Stool Occult Blood Carbamazepine Blood Type Antibody Screen Crossmatch 05/16/19 05/16/19 05/16/19 00:30 02:55 02:55 WBC 5.1 RBC 2.65 L Hgb 8.1 L Hct 25.1 L MCV 94.7 MCH 30.5 MCHC 32.2 RDW 17.1 H Plt Count 163 MPV 8.5 Absolute Neuts (auto) 3.9 Neutrophils % 77.7 Lymphocytes % 11.9 D Monocytes % 9.2 D Eosinophils % 1.0 Basophils % 0.2 Nucleated RBC % 0 Sodium 129 L Potassium 5.0 Chloride 93 L Carbon Dioxide 33 H Anion Gap 4 L BUN 20 H Creatinine 0.4 L Est GFR (CKD-EPI)AfAm 136.86 Est GFR (CKD-EPI)NonAf 118.08 POC Glucometer Random Glucose 73 L Serum Osmolality Lactic Acid Calcium 8.1 L Phosphorus Magnesium Iron TIBC Iron Saturation Ferritin Total Bilirubin AST ALT Alkaline Phosphatase Total Protein Albumin TSH Urine Color Urine Appearance Urine pH Ur Specific [place] Urine Protein Urine Glucose (UA) Urine Ketones Urine Blood Urine Nitrite Urine Bilirubin Urine Urobilinogen Ur Leukocyte Esterase Urine WBC (Auto) Urine RBC (Auto) Urine Casts (Auto) U Epithel Cells (Auto) U Sm Round Cell (Auto) Urine Bacteria (Auto) Urine Osmolality Ur Random Sodium 32 L Stool Occult Blood Carbamazepine Blood Type Antibody Screen Crossmatch 07/21/18 07/21/18 07/21/18 06:00 07:00 07:00 WBC 6.8 RBC 2.63 L Hgb 8.1 L Hct 24.6 L MCV 93.9 MCH 31.0 MCHC 33.0 RDW 17.3 H Plt Count 167 MPV 8.6 Absolute Neuts (auto) 5.7 Neutrophils % 83.0 H Lymphocytes % 8.0 D Monocytes % 8.0 Eosinophils % 0.9 Basophils % 0.1 Nucleated RBC % 0 Sodium 129 L Potassium 4.7 Chloride 93 L Carbon Dioxide 30 Anion Gap 6 L BUN 17 Creatinine 0.3 L Est GFR (CKD-EPI)AfAm 150.44 Est GFR (CKD-EPI)NonAf 129.80 POC Glucometer Random Glucose 71 L Serum Osmolality 269 L Lactic Acid Calcium 8.8 Phosphorus Magnesium Iron TIBC Iron Saturation Ferritin Total Bilirubin AST ALT Alkaline Phosphatase Total Protein Albumin TSH Urine Color Urine Appearance Urine pH Ur Specific [place] Urine Protein Urine Glucose (UA) Urine Ketones Urine Blood Urine Nitrite Urine Bilirubin Urine Urobilinogen Ur Leukocyte Esterase Urine WBC (Auto) Urine RBC (Auto) Urine Casts (Auto) U Epithel Cells (Auto) U Sm Round Cell (Auto) Urine Bacteria (Auto) Urine Osmolality Ur Random Sodium Stool Occult Blood Carbamazepine Blood Type Antibody Screen Crossmatch 07/21/18 07/21/18 07/21/18 19:25 19:25 21:40 WBC RBC Hgb Hct MCV MCH MCHC RDW Plt Count MPV Absolute Neuts (auto) Neutrophils % Lymphocytes % Monocytes % Eosinophils % Basophils % Nucleated RBC % Sodium 131 L Potassium 4.9 Chloride 95 L Carbon Dioxide 29 Anion Gap 8 BUN 14 Creatinine 0.3 L Est GFR (CKD-EPI)AfAm 150.44 Est GFR (CKD-EPI)NonAf 129.80 POC Glucometer 136 Random Glucose 48 L* Serum Osmolality Lactic Acid Calcium 8.8 Phosphorus Magnesium Iron TIBC Iron Saturation Ferritin Total Bilirubin AST ALT Alkaline Phosphatase Total Protein Albumin TSH Urine Color Urine Appearance Urine pH Ur Specific [place] Urine Protein Urine Glucose (UA) Urine Ketones Urine Blood Urine Nitrite Urine Bilirubin Urine Urobilinogen Ur Leukocyte Esterase Urine WBC (Auto) Urine RBC (Auto) Urine Casts (Auto) U Epithel Cells (Auto) U Sm Round Cell (Auto) Urine Bacteria (Auto) Urine Osmolality Ur Random Sodium Stool Occult Blood Carbamazepine 4.6 Blood Type Antibody Screen Crossmatch 07/22/18 07/22/18 07/22/18 07:00 07:00 07:00 WBC 7.8 RBC 2.88 L Hgb 9.0 L Hct 27.4 L MCV 95.3 MCH 31.1 MCHC 32.6 RDW 17.5 H Plt Count 170 MPV 8.8 Absolute Neuts (auto) Neutrophils % Lymphocytes % Monocytes % Eosinophils % Basophils % Nucleated RBC % Sodium 132 L Potassium 4.9 Chloride 98 Carbon Dioxide 32 Anion Gap 2 L BUN 17 Creatinine 0.4 L Est GFR (CKD-EPI)AfAm 136.86 Est GFR (CKD-EPI)NonAf 118.08 POC Glucometer Random Glucose 106 Serum Osmolality Lactic Acid Calcium 8.9 Phosphorus 3.2 Magnesium 2.2 Iron 54 TIBC 240 L Iron Saturation 23 Ferritin 1283.4 H Total Bilirubin 0.3 AST 22 ALT 25 Alkaline Phosphatase 158 H Total Protein 7.9 Albumin 2.4 L TSH Urine Color Urine Appearance Urine pH Ur Specific [place] Urine Protein Urine Glucose (UA) Urine Ketones Urine Blood Urine Nitrite Urine Bilirubin Urine Urobilinogen Ur Leukocyte Esterase Urine WBC (Auto) Urine RBC (Auto) Urine Casts (Auto) U Epithel Cells (Auto) U Sm Round Cell (Auto) Urine Bacteria (Auto) Urine Osmolality Ur Random Sodium Stool Occult Blood Carbamazepine Blood Type Antibody Screen Crossmatch 07/22/18 07/23/18 07/24/18 20:10 06:00 06:00 WBC RBC Hgb Hct MCV MCH MCHC RDW Plt Count MPV Absolute Neuts (auto) Neutrophils % Lymphocytes % Monocytes % Eosinophils % Basophils % Nucleated RBC % Sodium 135 L 135 L Potassium 4.9 5.2 H Chloride 98 97 L Carbon Dioxide 34 H 36 H Anion Gap 3 L 1 L BUN 19 H 25 H Creatinine 0.4 L 0.5 L Est GFR (CKD-EPI)AfAm 136.86 127.17 Est GFR (CKD-EPI)NonAf 118.08 109.72 POC Glucometer Random Glucose 112 H 94 Serum Osmolality Lactic Acid Calcium 8.9 9.4 Phosphorus Magnesium Iron TIBC Iron Saturation Ferritin Total Bilirubin 0.2 0.2 AST 14 L 18 ALT 20 20 Alkaline Phosphatase 144 H 145 H Total Protein 7.2 7.6 Albumin 2.2 L 2.3 L TSH 4.54 H Urine Color Yellow Urine Appearance Clear Urine pH 6.5 D Ur Specific [place] 1.011 Urine Protein Trace Urine Glucose (UA) Negative Urine Ketones Negative Urine Blood Negative Urine Nitrite Negative Urine Bilirubin Negative Urine Urobilinogen 0.2 Ur Leukocyte Esterase Trace Urine WBC (Auto) 5 Urine RBC (Auto) 4 Urine Casts (Auto) 6 U Epithel Cells (Auto) 2.4 U Sm Round Cell (Auto) Urine Bacteria (Auto) 1.9 Urine Osmolality Ur Random Sodium Stool Occult Blood Carbamazepine Blood Type Antibody Screen Crossmatch 07/24/18 07/24/18 07/25/18 06:00 10:15 05:55 WBC 5.2 5.1 RBC 2.54 L 2.95 L Hgb 7.9 L 9.1 L Hct 24.3 L 27.3 L MCV 95.8 92.8 MCH 31.2 30.8 MCHC 32.6 33.2 RDW 17.7 H 18.7 H Plt Count 141 160 MPV 8.6 8.5 Absolute Neuts (auto) 3.7 3.8 Neutrophils % 71.1 74.3 Lymphocytes % 11.3 D 10.3 Monocytes % 10.7 H 9.7 Eosinophils % 6.7 H D 5.6 H Basophils % 0.2 0.1 Nucleated RBC % 0 0 Sodium Potassium Chloride Carbon Dioxide Anion Gap BUN Creatinine Est GFR (CKD-EPI)AfAm Est GFR (CKD-EPI)NonAf POC Glucometer Random Glucose Serum Osmolality Lactic Acid Calcium Phosphorus Magnesium Iron TIBC Iron Saturation Ferritin Total Bilirubin AST ALT Alkaline Phosphatase Total Protein Albumin TSH Urine Color Urine Appearance Urine pH Ur Specific [place] Urine Protein Urine Glucose (UA) Urine Ketones Urine Blood Urine Nitrite Urine Bilirubin Urine Urobilinogen Ur Leukocyte Esterase Urine WBC (Auto) Urine RBC (Auto) Urine Casts (Auto) U Epithel Cells (Auto) U Sm Round Cell (Auto) Urine Bacteria (Auto) Urine Osmolality Ur Random Sodium Stool Occult Blood Carbamazepine Blood Type O POSITIVE Antibody Screen Negative Crossmatch See Detail 07/25/18 05:55 WBC RBC Hgb Hct MCV MCH MCHC RDW Plt Count MPV Absolute Neuts (auto) Neutrophils % Lymphocytes % Monocytes % Eosinophils % Basophils % Nucleated RBC % Sodium 138 Potassium 5.0 Chloride 96 L Carbon Dioxide 40 H Anion Gap 3 L BUN 24 H Creatinine 0.5 L Est GFR (CKD-EPI)AfAm 127.17 Est GFR (CKD-EPI)NonAf 109.72 POC Glucometer Random Glucose 100 Serum Osmolality Lactic Acid Calcium 8.6 Phosphorus Magnesium Iron TIBC Iron Saturation Ferritin Total Bilirubin 0.2 AST 15 ALT 20 Alkaline Phosphatase 148 H Total Protein 7.8 Albumin 2.3 L TSH Urine Color Urine Appearance Urine pH Ur Specific [place] Urine Protein Urine Glucose (UA) Urine Ketones Urine Blood Urine Nitrite Urine Bilirubin Urine Urobilinogen Ur Leukocyte Esterase Urine WBC (Auto) Urine RBC (Auto) Urine Casts (Auto) U Epithel Cells (Auto) U Sm Round Cell (Auto) Urine Bacteria (Auto) Urine Osmolality Ur Random Sodium Stool Occult Blood Carbamazepine Blood Type Antibody Screen Crossmatch Active Medications Generic Name Dose Route Start Last Admin Trade Name Freq PRN Reason Stop Dose Admin Albuterol/Ipratropium 1 amp 07/20/18 23:17 07/25/18 11:34 Duoneb - NEB 1 amp Q6H PRN Administration SHORT OF BREATH/WHEEZING Ascorbic Acid 500 mg 07/21/18 10:00 07/25/18 10:57 Vitamin C - PEG 500 mg DAILY CATHERINE Administration Carbamazepine 200 mg 07/25/18 10:46 Tegretol Oral Suspension - GT TID CATHERINE Cefuroxime Axetil 500 mg 07/25/18 12:30 Ceftin - PO BID CATHERINE Clonazepam 0.5 mg 07/25/18 22:00 Klonopin - PO 07/25/18 22:01 ONCE ONE Cyanocobalamin 1,000 mcg 07/21/18 10:00 07/25/18 10:57 Vitamin B12 - PEG 1,000 mcg DAILY CATHERINE Administration Folic Acid 1 mg 07/21/18 10:00 07/25/18 10:57 Folic Acid - PEG 1 mg DAILY CATHERINE Administration Hydralazine HCl 50 mg 07/21/18 06:00 07/25/18 06:16 Apresoline - PEG 50 mg TID CATHERINE Administration Lactobacillus Acidophilus 1 tab 07/21/18 10:00 07/25/18 10:57 Bacid - PEG 1 tab BID CATHERINE Administration Levothyroxine Sodium 100 mcg 07/21/18 07:00 07/25/18 06:39 Synthroid - PEG 100 mcg DAILY@0700 CATHERINE Administration Loratadine 10 mg 07/21/18 10:00 07/25/18 10:57 Claritin - GT 10 mg DAILY CATHERINE Administration Metoprolol Tartrate 25 mg 07/21/18 10:00 07/25/18 10:57 Lopressor - PEG 25 mg BID CATHERINE Administration Mirtazapine 7.5 mg 07/21/18 22:00 07/24/18 21:37 Remeron - PEG 7.5 mg HS CATHERINE Administration Pregabalin 50 mg 07/25/18 14:00 Lyrica - PO TID CATHERINE Sertraline HCl 50 mg 07/21/18 10:00 07/25/18 10:57 Zoloft - PEG 50 mg DAILY CATHERINE Administration Sodium Chloride 1 gm 07/22/18 14:45 07/25/18 10:56 Sodium Chloride Tablet - GT 1 gm DAILY CATHERNIE Administration Zinc Sulfate 220 mg 07/21/18 10:00 07/25/18 10:57 Orazinc - PEG 220 mg DAILY CATHERINE Administration Microbiology 07/20/18 17:09 Blood - Peripheral Venous Blood Culture - Preliminary NO GROWTH OBTAINED AFTER 96 HOURS, INCUBATION TO CONTINUE FOR 1 DAYS. 07/20/18 17:23 Blood - Peripheral Venous Blood Culture - Preliminary NO GROWTH OBTAINED AFTER 96 HOURS, INCUBATION TO CONTINUE FOR 1 DAYS. 05/17/19 18:30 Urine - Urine Raza Urine Culture - Final 07/20/18 18:13 Urine - Urine - Catheterized Urine Culture - Final Pseudomonas Aeruginosa Proteus Mirabilis Klebsiella Pneumoniae Group D Strep Or Entero Coccus Condition: Stable - Instructions Diet, Activity, Other Instructions: follow up with PMD follow up with Neurologist Dr Conroy continue antibiotic as prescribed continue with medication as prescribed return to ER if severe respiratory distress, chest pain, AMS, fever [place]:This report was requested by: Emma Yoon | Reference #: [id number] Referrals: Rom Conroy MD [Staff Physician] - Disposition: HOME - Home Medications Comprehensive Discharge Medication List: Ambulatory Orders Melatonin 2 mg PO HS 05/03/18 Metoprolol Succinate [Toprol Xl] 50 mg PO BID 05/03/18 Multivitamin [Multiple Vitamins] 1 each PO DAILY 05/03/18 Potassium Chloride [K-Dur -] 20 meq PO DAILY 05/03/18 Albuterol 2.5/Ipratropium 0.5 [Duoneb -] 1 amp NEB Q6H PRN #45 amp 05/28/18 Ascorbic Acid [Vitamin C -] 500 mg PO DAILY #30 tablet 05/28/18 Cyanocobalamin [Vitamin B12 -] 1,000 mcg NGT DAILY #30 tablet 05/28/18 Folic Acid - 1 mg NGT DAILY #30 tablet 05/28/18 Lactobacillus Acidophilus [Bacid -] 1 tab NGT BID #14 tab 05/28/18 Levothyroxine [Synthroid -] 100 mcg NGT DAILY@0700 #30 tablet 05/28/18 Loratadine [Claritin -] 10 mg NGT DAILY #30 tablet 05/28/18 Mirtazapine [Remeron -] 7.5 mg NGT HS #30 tablet 05/28/18 Sertraline HCl [Zoloft -] 50 mg NGT DAILY #30 tablet 05/28/18 Zinc Sulfate [Orazinc -] 220 mg NGT DAILY #30 capsule 05/28/18 hydrALAZINE HCL [Apresoline -] 50 mg NGT TID #90 tablet 05/28/18 Carbamazepine [Tegretol -] 100 mg PO TID 07/20/18 Furosemide 20 mg PO DAILY 07/20/18"
[2018-07-25] MEDS: MULTIVIT-MINERALS ORAL LIQUID PEG SCH (13:58)
[2018-07-25] MEDS ORDERED: PREGABALIN 50 MG CAPSULE PO SCH (14:00)
[2018-07-25 15:03] VITALS: BP 143/76; TEMP 97.3
[2018-07-25 15:53] VITALS: PULSE 69
[2018-07-25] MEDS ORDERED: clonazePAM 0.5 MG TABLET PO ONE (22:00)
== END 2018-07-25 18:11 | disposition home or self-care (01) | DRG 811 ==
LOC: JER 15:50 → JERBED 20:29 → J5S 07-21 05:04
PROVIDERS: ADMIT Family Medicine; ATTEND Family Medicine
DX: D64.9 Anemia, unspecified (principal); L89.134 Pressure ulcer of right lower back, stage 4; L89.154 Pressure ulcer of sacral region, stage 4; R53.2 Functional quadriplegia; J96.21 Acute and chronic respiratory failure with hypoxia; J96.22 Acute and chronic respiratory failure with hypercapnia; E87.1 Hypo-osmolality and hyponatremia; N39.0 Urinary tract infection, site not specified; J98.11 Atelectasis; G35 Multiple sclerosis; I10 Essential (primary) hypertension; E78.5 Hyperlipidemia, unspecified; E03.9 Hypothyroidism, unspecified; G50.0 Trigeminal neuralgia; N31.9 Neuromuscular dysfunction of bladder, unspecified; E87.8 Other disorders of electrolyte and fluid balance, not elsewhere classified; Z90.3 Acquired absence of stomach [part of]; R13.14 Dysphagia, pharyngoesophageal phase; R68.0 Hypothermia, not associated with low environmental temperature; H54.8 Legal blindness, as defined in USA; K59.09 Other constipation; K80.80 Other cholelithiasis without obstruction; M62.838 Other muscle spasm; F32.9 Major depressive disorder, single episode, unspecified; Z93.0 Tracheostomy status
CPT/HCPCS: 36415; 36430; 71045-TC-FY; 80048; 80053; 80156; 81003; 82272; 82728; 82962; 83540; 83550; 83605; 83735; 83930; 83935; 84100; 84300; 84443; 85025; 85027; 86850; 86900; 86901; 86922; 87040; 87086; 87186; 93005; 93010; 94640; 99284-25; J7030; P9058

== ENCOUNTER 2018-08-18 08:22 | Inpatient (IN) | payer OTHER ==
--- NOTE | 2018-08-18 08:37 | PDOC ---
History of Present Illness - General Chief Complaint: Weakness Stated Complaint: Weakness Time Seen by Provider: 08/18/18 08:30 - History of Present Illness Initial Comments: 08/18/18 08:35 53 yo F with h/o MS s/p trach ( on vent QHS), functional quadraplageia, HTN, HLD , who p/w watery stools, AMS. Per patient daughter at bedside patient with increased somnolence this AM, and general complaint of weakness. Patient daughter and home health aide at bedside to assist in report. Patient noted by home health and daughter to have 3 have 3 days of 2-3 loose, watery stools per day, with last episode (08/17/18) AM. Patient with increased PO intake at home x 3 days. Recent [facility] (07/21- 07/25) admission for hypothermia, hyponatremia, Sepsis, UTI, acute on chronic resp failure. Home O2 2 L daily. Patient on daily salt tab. Patient denies DAI, vision change, palpitations, cough, wheezing, orthopena, PND , leg swelling/pain, N/V, F,C, CP, SOB, urinary complaints, hematuria, BPR, abdominal pain, constipation, lightheadedness, weakness, sensory changes. PMHx: as noted above ROS: as noted SHx: Denies Etoh, IVDA, tobacco use Allergies: NKDA PMD: Iyad Jessica Past History - Past Medical History Allergies/Adverse Reactions: Allergies Allergy/AdvReac Type Severity Reaction Status Date / Time chloral hydrate Allergy Intermediate Rash Verified 08/18/18 08:28 [Chloral Hydrate] azathioprine [From Imuran] Allergy Rash Verified 08/18/18 08:28 azathioprine sodium Allergy Rash Verified 08/18/18 08:28 [From Imuran] adhesive tape AdvReac Severe sensitivity Verified 08/18/18 08:28 to glue adhesive AdvReac Unknown Verified 08/18/18 08:28 Home Medications: Ambulatory Orders Melatonin 2 mg PO HS 05/03/18 Multivitamin [Multiple Vitamins] 1 each PO DAILY 05/03/18 Potassium Chloride [K-Dur -] 20 meq PO DAILY 05/03/18 Albuterol 2.5/Ipratropium 0.5 [Duoneb -] 1 amp NEB Q6H PRN #45 amp 05/28/18 Ascorbic Acid [Vitamin C -] 500 mg PO DAILY #30 tablet 05/28/18 Cyanocobalamin [Vitamin B12 -] 1,000 mcg NGT DAILY #30 tablet 05/28/18 Folic Acid - 1 mg NGT DAILY #30 tablet 05/28/18 Lactobacillus Acidophilus [Bacid -] 1 tab NGT BID #14 tab 05/28/18 Levothyroxine [Synthroid -] 100 mcg NGT DAILY@0700 #30 tablet 05/28/18 Loratadine [Claritin -] 10 mg NGT DAILY #30 tablet 05/28/18 Mirtazapine [Remeron -] 7.5 mg NGT HS #30 tablet 05/28/18 Sertraline HCl [Zoloft -] 50 mg NGT DAILY #30 tablet 05/28/18 Zinc Sulfate [Orazinc -] 220 mg NGT DAILY #30 capsule 05/28/18 hydrALAZINE HCL [Apresoline -] 50 mg NGT TID #90 tablet 05/28/18 Furosemide 20 mg PO DAILY 07/20/18 Cefuroxime Axetil [Ceftin -] 500 mg PO BID 7 Days #14 tablet 07/25/18 Metoprolol Tartrate [Lopressor -] 25 mg PEG BID #60 tablet 07/25/18 Pregabalin [Lyrica -] 25 mg PO TID #6 capsule MDD 3 07/25/18 Sodium Chloride Tablet - 1 gm GT DAILY #30 tablet 07/25/18 clonazePAM [Klonopin -] 0.5 mg PEG HS PRN #2 tablet MDD 1 07/25/18 Carbamazepine [Tegretol -] 200 mg PO TID 08/18/18 Anemia: Yes Asthma: No Cancer: No Cardiac Disorders: No CVA: No COPD: No CHF: No DVT: No Dementia: (M.S,TRIG.NEUROLAGIA) Diabetes: No GI Disorders: Yes Disorders: Yes (baclofen implant) HTN: Yes Hypercholesterolemia: No Liver Disease: No Seizures: Yes Thyroid Disease: No - Surgical History Abdominal Surgery: No Appendectomy: No Cardiac Surgery: No Cholecystectomy: No GI Surgery: (BACLOFEN IMPLANT) Lung Surgery: Yes (TRACH) Neurologic Surgery: No Orthopedic Surgery: No - Immunization History Immunization Up to Date: Yes - Suicide/Smoking/Psychosocial Hx Smoking Status: No Smoking History: Never smoked Have you smoked in the past 12 months: No Number of Cigarettes Smoked Daily: 0 Cigars Per Day: 0 Hx Alcohol Use: No Drug/Substance Use Hx: No Substance Use Type: None Hx Substance Use Treatment: No Review of Systems - Review of Systems Comments:: 08/18/18 08:36 GENERAL/CONSTITUTIONAL: + Weakness. No fever or chills. HEAD, EYES, EARS, NOSE AND THROAT: No change in vision. No ear pain or discharge. No sore throat. CARDIOVASCULAR: No chest pain or shortness of breath RESPIRATORY: No cough, wheezing, or hemoptysis. GASTROINTESTINAL: + Diarrhea. No nausea, vomiting. GENITOURINARY: No dysuria, frequency, or change in urination. MUSCULOSKELETAL: No joint or muscle swelling or pain. No neck or back pain. SKIN: No rash NEUROLOGIC: No headache, vertigo, loss of consciousness, or change in strength/ sensation. ENDOCRINE: +increased thirst. No abnormal weight change HEMATOLOGIC/LYMPHATIC: No anemia, easy bleeding, or history of blood clots. ALLERGIC/IMMUNOLOGIC: No hives or skin allergy. *Physical Exam - Physical Exam Comments: 08/18/18 08:36 GENERAL: Awake, alert, and fully oriented, in no acute distress HEAD: No signs of trauma, normocephalic, atraumatic EYES: PERRLA, EOMI, sclera anicteric, conjunctiva clear ENT: Auricles normal inspection, hearing grossly normal, nares patent, oropharynx clear without exudates. Moist mucosa NECK: Normal ROM, supple, no lymphadenopathy, JVD, or masses LUNGS: Right LL base crackles. No distress, speaks full sentences,absent wheezing HEART: Regular rate and rhythm, normal S1 and S2, no murmurs, rubs or gallops, peripheral pulses normal and equal bilaterally. ABDOMEN: PEG tube L midabdomen c/d/i. Soft, nontender, normoactive bowel sounds. No guarding, no rebound. No masses. Neg CVA ttp. EXTREMITIES : Normal inspection, Normal range of motion, no edema. No clubbing or cyanosis. NEUROLOGICAL: Cranial nerves II through XII grossly intact. SKIN: Warm, Dry, normal turgor, no rashes or lesions noted ED Treatment Course - LABORATORY CBC & Chemistry Diagram: 08/18/18 08:50 08/18/18 10:11 Medical Decision Making - Medical Decision Making 08/18/18 09:04 53 yo F with h/o MS s/p trach ( on vent QHS), hyponatremia, functional quadraplageia, HTN, HLD, who p/w 3-4 days of loose watery stools, and increased somnolence, AMS. BP 98/39, Temp 94.9, HR 96, O2 97 2 L NC. Physical notable for RLL rales. R/o PNA. Will assess for VBI/TIA, cardiac dysarrythmias, hypoglycemia , electrolyte abnml, metabolic and toxic derangements, acid-base disturbances, infection. 08/18/18 09:07 ED Course: EKG: NSR with absent ODALIS, STD. Nml interval duration and axis. Nml R wave progression. Absent Q waves. 08/18/18 09:43 Worsening RLL infiltrate on CXR. Treat Vanc/Zosyn 08/18/18 10:53 08/18/18 11:38 Trop: Neg Na 131 08/18/18 11:46 Dr. Ball covering for Dr. Anne Lopez. 08/18/18 12:[address] Ball accepted to med/surg *DC/Admit/Observation/Transfer Diagnosis at time of Disposition: PNA (pneumonia) Qualifiers: Pneumonia type: due to unspecified organism Laterality: right Lung location: lower lobe of lung Qualified Code(s): J18.1 - Lobar pneumonia, unspecified organism Sepsis Qualifiers: Sepsis type: sepsis due to unspecified organism Qualified Code(s): A41.9 - Sepsis, unspecified organism - Discharge Dispostion Condition at time of disposition: Stable Decision to Admit order: Yes - Referrals Referrals: Anne Lopez MD [Primary Care Provider] - - Patient Instructions - Post Discharge Activity
[2018-08-18] MEDS ORDERED: PIPERACILLIN/TAZOB 4.5 GM 4.5 GM in DEXTROSE 5%-WATER 100 ML IVPB ONE (09:39)
[2018-08-18] MEDS ORDERED: VANCOMYCIN 1 GM in D5W (PRE-DOCKED) 1,000 MG/250 ML IVPB ONE (09:39)
[2018-08-18 09:51] LABS: BASO % 0.5 % (0-2.0); HEMATOCRIT 24.2 % (32.4-45.2); HEMOGLOBIN 8.1 GM/dL (10.7-15.3); LYMPH % 11.6 % (8-40); MCH 31.8 pg (25.7-33.7); MCHC 33.5 g/dl (32.0-36.0); MEAN PLT VOLUME 10.1 fl (7.5-11.1); MONO % 7.6 % (3.8-10.2); NEUT % 75.3 % (42.8-82.8); RBC 2.55 M/mm3 (3.60-5.2); RDW 16.3 % (11.6-15.6)
[2018-08-18] MEDS ORDERED: VANCOMYCIN 1 GRAM (PRE-DOCKED) 1,000 MG/250 ML BAG IVPB ONE (10:11)
[2018-08-18] MEDS ORDERED: PIPERACILLIN/TAZOB 4.5 GM 4.5 GM/100 ML BAG IVPB ONE (10:11)
[2018-08-18 10:18] LABS: INR 1.12 (0.83-1.09); PROTHROMBIN TIME (PATIENT) 13.2 SEC (9.7-13.0)
[2018-08-18 10:21] LABS: ACTIVATED PTT 46.4 SECONDS (25.2-36.5)
[2018-08-18 11:07] LABS: EPI CELLS 3.1 /HPF (0-5/HPF); HYALINE CASTS 1 /lpf (0-8); PH,URINE 7.5 (5.0-8.0); URINE APPEARANCE CLEAR; URINE BACTERIA 3449.3 /hpf (NEGATIVE); URINE BILIRUBIN NEGATIVE (NEGATIVE); URINE COLOR YELLOW; URINE GLUCOSE (UA) NEGATIVE (NEGATIVE); URINE KETONE NEGATIVE (NEGATIVE); URINE LEUK ESTERASE 2+ (NEGATIVE); URINE NITRITE NEGATIVE (NEGATIVE); URINE PROTEIN NEGATIVE (NEGATIVE); URINE RBC 1 /hpf (0-4); URINE UROBILINOGEN 0.2 mg/dL (0.2-1.0); URINE WBC 13 /hpf (0-5)
[2018-08-18 11:24] LABS: ALBUMIN 2.4 g/dl (3.4-5.0); BILIRUBIN,TOTAL 0.1 mg/dL (0.2-1); BLOOD UREA NITROGEN 33.4 mg/dL (7-18); CALCIUM 8.7 mg/dL (8.5-10.1); CREATININE 0.6 mg/dL (0.55-1.3); POTASSIUM 5.8 mmol/L (3.5-5.1); TOT PROT 7.5 g/dl (6.4-8.2)
--- NOTE | 2018-08-18 11:43 | EKG ---
Test Reason : Blood Pressure : / mmHG Vent. Rate : 067 BPM Atrial Rate : 067 BPM P-R Int : 194 ms QRS Dur : 122 ms QT Int : 406 ms P-R-T Axes : 072 016 040 degrees QTc Int : 429 ms NORMAL SINUS RHYTHM NON-SPECIFIC INTRA-VENTRICULAR CONDUCTION DELAY BORDERLINE ECG WHEN COMPARED WITH ECG OF 20-JUL-2018 17:00, NO SIGNIFICANT CHANGE WAS FOUND Confirmed by NATTY PATIÑO, SLOAN ([id number]) on 08/18/2018 11:43:15 AM Referred By: Confirmed By:SLOAN LUZ MD
[2018-08-18] MEDS ORDERED: SODIUM CHLORIDE 1,000 ML IV STA (12:00)
--- NOTE | 2018-08-18 12:28 | PDOC ---
Documentation entered by Mely Poon SCRIBE, acting as scribe for Ryan Pimentel MD. Ryan Pimentel MD: This documentation has been prepared by the Cleve de jesus Nirvannie, SCRIBE, under my direction and personally reviewed by me in its entirety. I confirm that the documentation accurately reflects all work, treatment, procedures, and medical decision making performed by me. Attending Attestation - Resident Resident Name: Merlin Grande - ED Attending Attestation I have performed the following: I have examined & evaluated the patient, The case was reviewed & discussed with the resident, I agree w/resident's findings & plan, Exceptions are as noted - HPI HPI: 08/18/18 11:58 The patient is a 53 year old female, with a significant past medical history of MS (s/p trach on vent), functional quadriplegia, HTN, HLD, who presents to the emergency department with AMS. As per family at bedside, patient was increasingly somnolent this morning, dazed, and attempted to grab random objects. Family notes, she recently experienced 3 days of loose BMs which has since resolved this morning. They note giving her Tylenol and reporting to the ED. Family endorses the patient is currently at her baseline. She denies recent chest pain or shortness of breath, denies abd pain, N/V/D, focal weakness or numbness. Mother reports pt has had UTIs in the past in the setting of these sxs. Primary Care Physician: Dr. Anne Lopez Neurologist: Dr. Conroy - Physicial Exam PE: 08/18/18 11:59 GENERAL: Awake, alert, and fully oriented, in no acute distress HEAD: No signs of trauma EYES: PERRLA, EOMI, sclera anicteric, conjunctiva clear ENT: +Trach in place. Hearing grossly normal. NECK: Normal ROM, supple, no lymphadenopathy, JVD, or masses LUNGS: Breath sounds equal, clear to auscultation bilaterally. No wheezes, and no crackles HEART: Regular rate and rhythm, normal S1 and S2, no murmurs, rubs or gallops ABDOMEN: Soft, nontender, normoactive bowel sounds. No guarding, no rebound. No masses EXTREMITIES: +Contracted. BACK: No midline spinal tenderness in cervical/thoracic/lumbar region NEUROLOGICAL: Normal speech, cranial nerves intact, normal cerebellar exam, normal reflexes and tone SKIN: Warm, Dry, normal turgor, no rashes or lesions noted. - Medical Decision Making 08/18/18 09:14 53yo F hx MMP including MS s/p trach, c/b neurogenic bladder with UTIs presents to the ED with lethargy, now improved Found to be hypotensive, hypothermic, and tachycardic. BP recovered to 110/84 w/ o intervention on initial evaluation. 1L NS hanging (previous EF 56% a few yrs ago) Sepsis w/u initiated, kinsey hugger placed Pt covered empirically with Vanc/Zosyn So far UA+ and +RML infiltrate Previous micro reviewed, sensitive to Vanc/Zosyn Aniticpate admission 08/18/18 12:25 WBC previously reported, however now pending again Initial CMP hemolyzed, redraw with multiple abnormal results - possibly spurious ? Plan to rpt CMP again Case discussed with Dr. Ball, pt accepted for admission Case discussed in detail with admitting physician including history, physical exam and ancillary studies. Admitting physician has assumed care for the patient, will follow all pending diagnostics and will complete the evaluation and treatment.
[2018-08-18 12:41] LABS: PLATELET COUNT 236 K/MM3 (134-434); WHITE BLOOD COUNT 14.7 K/mm3 (4.0-10.0)
[2018-08-18 12:55] LABS: ALBUMIN 2.4 g/dl (3.4-5.0); ALK PHOS 372 U/L (45-117); ANION GAP 6 MMOL/L (8-16); BILIRUBIN,TOTAL < 0.1 mg/dL (0.2-1); CALCIUM 8.7 mg/dL (8.5-10.1); CHLORIDE 96 mmol/L (98-107); CO2 29 mmol/L (21-32); CREATININE 0.6 mg/dL (0.55-1.3); GLUCOSE,RANDOM 66 mg/dL (74-106); POTASSIUM 5.8 mmol/L (3.5-5.1); SGOT/AST 50 U/L (15-37); SGPT/ALT 54 U/L (13-61); SODIUM 131 mmol/L (136-145); TOT PROT 7.4 g/dl (6.4-8.2)
[2018-08-18 14:57] LABS: ALBUMIN 2.3 g/dl (3.4-5.0); BILIRUBIN,TOTAL 0.1 mg/dL (0.2-1); BLOOD UREA NITROGEN 28.8 mg/dL (7-18); CALCIUM 8.4 mg/dL (8.5-10.1); CREATININE 0.5 mg/dL (0.55-1.3); POTASSIUM 5.5 mmol/L (3.5-5.1); TOT PROT 7.4 g/dl (6.4-8.2)
--- NOTE | 2018-08-18 15:56 | HP ---
Admitting History and Physical - Primary Care Physician PCP: Anne Lopez - Admission History of Present Illness: 53 yo F with h/o MS s/p trach ( on vent QHS), functional quadraplageia, HTN, HLD , who p/w watery stools, AMS. Per patient daughter at bedside patient with increased somnolence this AM, and general complaint of weakness. Patient daughter and home health aide at bedside to assist in report. Patient noted by home health and daughter to have 3 have 3 days of 2-3 loose, watery stools per day, with last episode (08/17/18) AM. Patient with increased PO intake at home x 3 days. Recent [facility] (07/21- 07/25) admission for hypothermia, hyponatremia, Sepsis, UTI, acute on chronic resp failure. Home O2 2 L daily. Patient on daily salt tab. 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 No: Asthma, Bronchitis , Cancer, COPD, Pulmonary Embolus, Pulmonary Fibrosis, Sleep Apnea Gastrointestinal: Yes: Constipation (chronic) Hepatobiliary: Yes: Cholelithiasis Renal/: Yes: Neurogenic Bladder ( neurogenic bladder, chronic perera catheter) ...LMP: 06/07/12 Heme/Onc: Yes: Anemia Infectious Disease: Yes: Other (pneumonia, uti treated by urologist) Musculoskeletal: Yes: Other (Quadraplegia) Dermatology: Yes: Other (chronic decubitus followed by wound care) - Past Surgical History Past Surgical History: Yes: Colonoscopy - Smoking History Smoking history: Never smoked Have you smoked in the past 12 months: No Aproximately how many cigarettes per day: 0 - Alcohol/Substance Use Hx Alcohol Use: No History of Substance Use: reports: None - Social History ADL: Support Services History of Recent Travel: No Home Medications - Allergies Allergies/Adverse Reactions: Allergies Allergy/AdvReac Type Severity Reaction Status Date / Time chloral hydrate Allergy Intermediate Rash Verified 08/18/18 08:28 [Chloral Hydrate] azathioprine [From Imuran] Allergy Rash Verified 08/18/18 08:28 azathioprine sodium Allergy Rash Verified 08/18/18 08:28 [From Imuran] adhesive tape AdvReac Severe sensitivity Verified 08/18/18 08:28 to glue adhesive AdvReac Unknown Verified 08/18/18 08:28 - Home Medications Home Medications: Ambulatory Orders Melatonin 2 mg PO HS 05/03/18 Multivitamin [Multiple Vitamins] 1 each PO DAILY 05/03/18 Potassium Chloride [K-Dur -] 20 meq PO DAILY 05/03/18 Albuterol 2.5/Ipratropium 0.5 [Duoneb -] 1 amp NEB Q6H PRN #45 amp 05/28/18 Ascorbic Acid [Vitamin C -] 500 mg PO DAILY #30 tablet 05/28/18 Cyanocobalamin [Vitamin B12 -] 1,000 mcg NGT DAILY #30 tablet 05/28/18 Folic Acid - 1 mg NGT DAILY #30 tablet 05/28/18 Lactobacillus Acidophilus [Bacid -] 1 tab NGT BID #14 tab 05/28/18 Levothyroxine [Synthroid -] 100 mcg NGT DAILY@0700 #30 tablet 05/28/18 Loratadine [Claritin -] 10 mg NGT DAILY #30 tablet 05/28/18 Mirtazapine [Remeron -] 7.5 mg NGT HS #30 tablet 05/28/18 Sertraline HCl [Zoloft -] 50 mg NGT DAILY #30 tablet 05/28/18 Zinc Sulfate [Orazinc -] 220 mg NGT DAILY #30 capsule 05/28/18 hydrALAZINE HCL [Apresoline -] 50 mg NGT TID #90 tablet 05/28/18 Furosemide 20 mg PO DAILY 07/20/18 Cefuroxime Axetil [Ceftin -] 500 mg PO BID 7 Days #14 tablet 07/25/18 Metoprolol Tartrate [Lopressor -] 25 mg PEG BID #60 tablet 07/25/18 Pregabalin [Lyrica -] 25 mg PO TID #6 capsule MDD 3 07/25/18 Sodium Chloride Tablet - 1 gm GT DAILY #30 tablet 07/25/18 clonazePAM [Klonopin -] 0.5 mg PEG HS PRN #2 tablet MDD 1 07/25/18 Carbamazepine [Tegretol -] 200 mg PO TID 08/18/18 Family Disease History - Family Disease History Family Disease History: Diabetes: Sister, Other: Mother Review of Systems - Review of Systems Constitutional: reports: Lethargy Physical Examination Vital Signs: Vital Signs Temperature 98.2 F 08/18/18 14:53 Pulse Rate 109 H 08/18/18 14:15 Respiratory Rate 18 08/18/18 12:42 Blood Pressure 121/68 08/18/18 12:42 O2 Sat by Pulse Oximetry (%) 96 08/18/18 14:15 Constitutional: Yes: Calm HENT: Yes: Other (trach) Cardiovascular: Yes: Regular Rate and Rhythm, S1, S2 Labs: CBC, BMP 08/18/18 08:50 08/18/18 14:06 Imaging - Results Chest X-ray: Report Reviewed (right basilar infiltrate and effusion) Problem List - Problems (1) Sepsis Assessment/Plan: ivf broad spectrum iv abx cultures ID consult send stool given history of loose stools at home NPO for now hold off anti HTNmeds Code(s): A41.9 - SEPSIS, UNSPECIFIED ORGANISM Qualifiers: Sepsis type: sepsis due to unspecified organism Qualified Code(s): A41.9 - Sepsis, unspecified organism (2) Abnormal LFTs Assessment/Plan: liver sonogram Code(s): R94.5 - ABNORMAL RESULTS OF LIVER FUNCTION STUDIES (3) Altered mental status Assessment/Plan: ct head could be toxic metabolic encephalopatty hold all sedating medications neurology Code(s): R41.82 - ALTERED MENTAL STATUS, UNSPECIFIED (4) Functional quadriplegia secondary to MS Assessment/Plan: frequent turn position feeding via g tube vent support Code(s): G35 - MULTIPLE SCLEROSIS; R53.2 - FUNCTIONAL QUADRIPLEGIA (5) Hypothyroid Assessment/Plan: tsh synthroid Code(s): E03.9 - HYPOTHYROIDISM, UNSPECIFIED (6) Neurogenic bladder Assessment/Plan: chronic indwelling bladder Code(s): N31.9 - NEUROMUSCULAR DYSFUNCTION OF BLADDER, UNSPECIFIED (7) Anemia Assessment/Plan: iron panel stool occult Code(s): D64.9 - ANEMIA, UNSPECIFIED Qualifiers: Other causes of anemia: other cause, not classified
[2018-08-18] MEDS ORDERED: ALBUTEROL SO4 0.083% IH SOL 2.5 MG/3 ML VIAL.NEB. NEB PRN (16:19)
--- NOTE | 2018-08-18 19:15 | PN ---
Progress Note (short form) - Note Progress Note: ID CONSULT DICTATED RLL PNEUMONIA ? HCAP DIARRHEA EXACERBATION MS AWAIT C/S EMPIRIC ZOSYN / VANCO
[2018-08-18] MEDS: carBAMazepine 200 MG TABLET GT SCH (20:33)
--- NOTE | 2018-08-18 22:13 | CONSULT ---
Consult - text type - Consultation Consultation Note: NEUROLOGY CONSULTATION is greatly appreciated: Events reviewed, patient examined. Sister, Silvia at Bedside. 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 S/P Baclofen pump. On Tegretol 200 mg TID (complicated by chronic hyponatremia) and Lyrica. Indwelling perera. Recurrent UTI'd. S/P trache with ventilation at night. Progressive dysphagia, s/p PEG with c/o chronic diarrhea due to nocturnal tube feedings. Now admitted with 3 days of lethargy, weakness. Found to have RLL Pneumonia. Urine WBC=13. Started on Vanco and zosyn. Na+=131 mg%. WBC=14.7. H/H=8/24 CBZ level=<0.5 mg%. GODFREY: Comfortable on ventilator, s/p trache. No rashes. Sacral decubitae not examine. NEURO: Awake, alert. Follows commands. CN II-XII: decreased vision. Full martin. Decreased tongue ESSENCE's Flacid areflexic tetraplegia. Plantars silent Feels pinch in arms. IMP: Advanced MS with tetraplegia, respiratory compromise, severe dysphagia. Worsened by Toxic-metabolic encephalopathy Trigeminal Neuralgia Suggest: Continue antibiotics and hydration. Continue Tegretol 200 mg via PEG q 8 hrs Increase Pregabalin (lyrica) to 50 mg q 8 hrs Continue Clonazepam 0.5 mg q 12 hrs, mirtazapine, sertraline Have corrosion engineer consult to try different feeds vs diarrhea. Wound care consult. Check TSH, T4 Bedside PT Thank you very much, Rom Conroy MD
[2018-08-19] MEDS ORDERED: DEXTROSE 5%-WATER - 50 ML IVPB ONE ×3 (01:18→16:27)
[2018-08-19] MEDS ORDERED: PIPERACILLIN/TAZOBACTAM 3.375 GM VIAL IVPB ONE ×3 (01:18→16:27)
--- NOTE | 2018-08-19 01:45 | CONS ---
DATE OF CONSULTATION: 08/18/2018 The patient is a 53-year-old female with a history of multiple sclerosis, history of chronic respiratory failure, status post tracheostomy, neurogenic bladder with indwelling Raza catheter, functional quadriplegia evaluated for pneumonia and sepsis. As per family members, the patient had been at home and was noted to be increasingly somnolent on the day of admission with complaints of generalized weakness. She also had loose bowel movements, described as nonbloody over the past 2 days. Home health aide was present and reports that the patient had several loose bowel movements for the past 2-3 days. She was transferred and evaluated in the emergency room at [facility] where chest x-ray shows a new right lower lobe infiltrate. Patient was recently admitted to [facility] in July of 2018 for urinary tract infection. She has had a history of recurrent urinary tract infections in the setting of neurogenic bladder and indwelling Raza catheter. PAST MEDICAL HISTORY: Positive for advanced multiple sclerosis. Patient is essentially bed bound and has a history of neurogenic bladder with indwelling Raza catheter changed every 3-4 weeks, sacral decubitus ulcer. Past medical history also includes functional quadriplegia, recurrent pneumonia, and urinary tract infections, chronic sacral decubitus ulcer. ALLERGIES: CHLOROHYDRATE, IMURAN, ADHESIVE TAPE. MEDICATIONS: Include Zosyn, Tegretol, Klonopin, albuterol, Synthroid. SOCIAL HISTORY: She resides at home and is cared for by family members. She is totally dependent in activities of daily living. No active tobacco or alcohol use. LABORATORY DATA: White count 14.7, hematocrit 24.2, platelet count 236, BUN 28, creatinine 0.5, total bilirubin 0.1, alkaline phosphatase 348, AST 46. UA has 13 white cells. Cultures are pending. Chest x-ray shows a new right lower lobe infiltrate, which was not present on her admission in July of this year. PHYSICAL EXAMINATION: General: She is awake. She is lethargic, but she attempts to converse. Her breathing is nonlabored. Vital Signs: Temperature 98.0, blood pressure 158/70, pulse 112 and regular, respirations 20 per minute. HEENT: Sclerae anicteric. Tracheostomy site: No secretions. Heart: Sounds S1, S2. Lungs: Bilateral rhonchi. Abdomen: Soft. No tenderness elicited. No mass, rebound, or rigidity. Extremities: Positive for edema, 2+. Genitalia: Raza catheter is in place with clear urine. IMPRESSION: 1. Right lower lobe pneumonia, rule out healthcare-acquired pathogens in light of recent hospitalization. 2. Diarrhea. 3. Acute exacerbation of multiple sclerosis. PLAN: Await sepsis workup. Empiric antibiotic coverage for healthcare-acquire respiratory tract pathogens with Zosyn and stat dose vancomycin. Aspiration precautions. Case discussed with patient's mother, present at the time of the examination. Thank you for the kind referral. MARGY MUÑIZ M.D. [id number]
[2018-08-19] MEDS: PIPERACILLIN/TAZOB 3.375 GM 3.375 GM in DEXTROSE 5%-WATER - 50 ML IVPB SCH ×3 (01:55→18:15)
[2018-08-19] MEDS: LEVOTHYROXINE NA 100 MCG TABLET (FP) GT SCH (06:15)
[2018-08-19 07:48] LABS: INR 1.22 (0.83-1.09); PROTHROMBIN TIME (PATIENT) 14.4 SEC (9.7-13.0)
[2018-08-19 07:57] LABS: ALBUMIN 2.4 g/dl (3.4-5.0); BILIRUBIN,TOTAL 0.3 mg/dL (0.2-1); BLOOD UREA NITROGEN 24.6 mg/dL (7-18); CALCIUM 8.7 mg/dL (8.5-10.1); CREATININE 0.6 mg/dL (0.55-1.3); MAGNESIUM 2.7 mg/dL (1.8-2.4); POTASSIUM 4.9 mmol/L (3.5-5.1); TOT PROT 7.8 g/dl (6.4-8.2)
[2018-08-19 08:19] LABS: HEMATOCRIT 26.6 % (32.4-45.2); HEMOGLOBIN 8.7 GM/dL (10.7-15.3); MCH 30.9 pg (25.7-33.7); MCHC 32.8 g/dl (32.0-36.0); MEAN CELL VOLUME 94.3 fl (80-96); MEAN PLT VOLUME 9.3 fl (7.5-11.1); PLATELET COUNT 209 K/MM3 (134-434); RBC 2.82 M/mm3 (3.60-5.2); RDW 16.4 % (11.6-15.6); WHITE BLOOD COUNT 7.5 K/mm3 (4.0-10.0)
[2018-08-19] MEDS ORDERED: PT OWN MED DRAWER 7, Y5N ONE ×3 (08:56→18:05)
[2018-08-19] MEDS: carBAMazepine 200 MG TABLET GT SCH ×3 (10:36→18:15)
--- NOTE | 2018-08-19 11:39 | PN ---
Progress Note (short form) - Note Progress Note: PULMONARY CONSULTATION DICTATED 08/19/18 IMP CHRONIC RESPIRATORY FAILURE RLL PNEUMONIA ALTERED MENTAL STATUS LIKELY TOXIC METABOLIC ENCEPHALOPATHY ADVANCED MULTIPLE SCLEROSIS FUNCTIONAL QUADRIPLEGIA RECURRENT UTIs ANEMIA NEUROGENIC BLADDER HYPOTHYROID PLAN ABX PER ID VENT SUPPORT ON AC MODE AT NIGHT,TRACH COLLAR DURING THE DAY INHALED BRONCHODILATORS CULTURES MONITOR LYTES,CBC F/U CHEST X-RAYS NORMAL TRANSFUSION THRESHOLD DR ELDER Problem List - Problems (1) Pneumonia Code(s): J18.9 - PNEUMONIA, UNSPECIFIED ORGANISM Qualifiers: Pneumonia type: due to unspecified organism Laterality: right Lung location: lower lobe of lung Qualified Code(s): J18.1 - Lobar pneumonia, unspecified organism (2) Sepsis Code(s): A41.9 - SEPSIS, UNSPECIFIED ORGANISM Qualifiers: Sepsis type: sepsis due to unspecified organism Qualified Code(s): A41.9 - Sepsis, unspecified organism (3) Altered mental status Code(s): R41.82 - ALTERED MENTAL STATUS, UNSPECIFIED (4) Anemia Code(s): D64.9 - ANEMIA, UNSPECIFIED Qualifiers: Other causes of anemia: other cause, not classified (5) Chronic respiratory failure Code(s): J96.10 - CHRONIC RESPIRATORY FAILURE, UNSP W HYPOXIA OR HYPERCAPNIA (6) Decubital ulcer Code(s): L89.90 - PRESSURE ULCER OF UNSPECIFIED SITE, UNSPECIFIED STAGE Qualifiers: Pressure injury location: unspecified location Pressure injury stage: unspecified pressure injury stage Qualified Code(s): L89.90 - Pressure ulcer of unspecified site, unspecified stage (7) Functional quadriplegia Code(s): R53.2 - FUNCTIONAL QUADRIPLEGIA (8) Functional 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 (9) HTN (hypertension) Code(s): I10 - ESSENTIAL (PRIMARY) HYPERTENSION (10) Hx of multiple sclerosis Code(s): Z86.69 - PERSONAL HISTORY OF DIS OF THE NERVOUS SYS AND SENSE ORGANS (11) Hypothyroid Code(s): E03.9 - HYPOTHYROIDISM, UNSPECIFIED (12) Multiple sclerosis Code(s): G35 - MULTIPLE SCLEROSIS (13) Status post tracheostomy Code(s): Z93.0 - TRACHEOSTOMY STATUS (14) Toxic metabolic encephalopathy Code(s): G92 - TOXIC ENCEPHALOPATHY (15) Tracheostomy dependence Code(s): Z93.0 - TRACHEOSTOMY STATUS (16) Trigeminal neuralgia Code(s): G50.0 - TRIGEMINAL NEURALGIA
--- NOTE | 2018-08-19 13:46 | CONS ---
DATE OF CONSULTATION: 08/18/2018 REFERRING PHYSICIAN: Anne Lopez MD HISTORY: Patient is a 53-year-old white female known to me from previous hospitalizations with a history of multiple sclerosis, chronic respiratory failure on tracheostomy collar during the day and ventilator support at night, functional quadriplegia, hypertension, hyperlipidemia, hypothyroidism, anemia, history of recurrent UTIs, sepsis, pneumonia, history of hyponatremia, neurogenic bladder with chronic Raza. Admitted to [facility] with complaints of generalized weakness and increased somnolence the day of admission. Patient apparently for 3 days prior to admission had been having 2-3 loose, watery stools per day. Last episode was on August 17. Patient also had increased p.o. intake at home. Patient was noted to have increasing lethargy and transferred to [facility] ER. In the ER, she had a chest x-ray performed, which revealed possible right lower lobe pneumonia. She was transferred to the floor and started on broad-spectrum antibiotics. She was also started on IV fluid. She is a nonsmoker. There is no history of occupational exposure to chemicals or fumes. PAST MEDICAL HISTORY: Again, includes advanced multiple sclerosis with functional quadriplegia, history of chronic respiratory failure on tracheostomy collar during the day, ventilator support at night, hypertension, hyperlipidemia, hypothyroidism, anemia, history of recurrent UTIs, neurogenic bladder with chronic Raza. CURRENT MEDICATIONS: Include piperacillin, Tegretol, Klonopin, albuterol, and Synthroid. REVIEW OF SYSTEMS: No orthopnea, no PND, no shortness of breath, no chest pain, no palpitations. Positive increased tracheal secretions. No abdominal pain. Positive loose stools. Positive trace lower extremity edema. PHYSICAL EXAMINATION: General: The patient is a well-developed, well-nourished female currently awake on tracheostomy collar. Appears comfortable in no acute respiratory distress. Vital Signs: She is currently afebrile. Respiratory rate is 20, blood pressure 130/56. HEENT: Normocephalic, atraumatic. Neck: Supple. Trachea is patent. Heart: Regular with S1, S2. Chest: A few scattered bilateral rhonchi. Abdomen: Soft. Bowel sounds positive. Extremities: Trace bilateral lower extremity edema. LABORATORIES: WBC 7.5, hemoglobin 8.7, hematocrit 26.6 with a platelet count of 209,000. INR is 1.22. BUN is 24, creatinine is 0.6. Chest x-ray: Right basilar infiltrate. IMPRESSION: 1. Chronic respiratory failure secondary to advanced multiple sclerosis. 2. Right lower lobe pneumonia. 3. Altered mental status likely toxic metabolic encephalopathy secondary to infectious, probable pneumonia along with dehydration. 4. Advanced multiple sclerosis. 5. Functional quadriplegia. 6. Recurrent urinary tract infections. 7. Anemia. 8. Neurogenic bladder with chronic Raza. 9. Hypothyroidism. 10. Watery stools. PLAN: Antibiotics infectious disease. Continue ventilator support on assist control mode at night and tracheostomy collar during the day as tolerated. Inhaled bronchodilators. Obtain cultures. Monitor electrolytes, CBC. Obtain follow up chest x-ray. Normal transfusion threshold. DEE ELDER M.D. [id number]
--- NOTE | 2018-08-19 14:36 | PN ---
Progress Note, Physician History of Present Illness: AWAKE AND ALERT TODAY NO COMPLAINTS BREATHING NON-LABORED AFEBRILE WBC IMPROVED BC GPCC X 1 - Current Medication List Current Medications: Active Medications Albuterol Sulfate (Ventolin 0.083% Nebulizer Soln -) 1 amp NEB Q6H PRN PRN Reason: SHORT OF BREATH/WHEEZING Carbamazepine (Tegretol -) 200 mg GT TIDCM CATHERINE Last Admin: 08/19/18 13:33 Dose: 200 mg Clonazepam (Klonopin -) 0.5 mg PO Q12H PRN PRN Reason: ANXIETY Piperacillin Sod/Tazobactam (Sod 3.375 gm/ Dextrose) 50 mls @ 100 mls/hr IVPB Q8H-IV CATHERINE; Protocol Last Admin: 08/19/18 10:36 Dose: 100 mls/hr Vancomycin HCl 1,000 mg/ (Dextrose) 250 mls @ 166.667 mls/hr IVPB Q12H CATHERINE; Protocol Levothyroxine Sodium (Synthroid -) 100 mcg GT DAILY@0700 PENDING SALE TO [facility] Last Admin: 08/19/18 06:15 Dose: 100 mcg - Objective Vital Signs: Vital Signs Temperature 97.7 F 08/19/18 11:00 Pulse Rate 84 08/19/18 11:00 Respiratory Rate 20 08/19/18 11:00 Blood Pressure 104/55 L 08/19/18 11:00 O2 Sat by Pulse Oximetry (%) 98 08/19/18 09:00 Constitutional: Yes: No Distress Cardiovascular: Yes: Regular Rate and Rhythm, S1, S2 Respiratory: Yes: Diminished Gastrointestinal: Yes: Normal Bowel Sounds, Soft. No: Tenderness Labs: CBC, BMP 08/19/18 06:25 08/19/18 06:25 INR, PTT INR 1.22 (0.83-1.09) H 08/19/18 06:25 Assessment/Plan RLL PNEUMONIA R/O HCAP +BC ? STREP BACTEREMIA SECONDARY TO LUNG SOURCE TOXIC METABOLIC ENCEPHALOPATHY- RESOLVED MS NEUROGENIC BLADDER AWAIT C/S CONTINUE ZOSYN/ VANCOMYCIN
--- NOTE | 2018-08-19 14:43 | PN ---
Progress Note, Physician Chief Complaint: AWAKE ALERT MOM BEDSIDE DENIES CP OR FEVER - Current Medication List Current Medications: Active Medications Albuterol Sulfate (Ventolin 0.083% Nebulizer Soln -) 1 amp NEB Q6H PRN PRN Reason: SHORT OF BREATH/WHEEZING Carbamazepine (Tegretol -) 200 mg GT TIDCM CATHERINE Last Admin: 08/19/18 13:33 Dose: 200 mg Clonazepam (Klonopin -) 0.5 mg PO Q12H PRN PRN Reason: ANXIETY Piperacillin Sod/Tazobactam (Sod 3.375 gm/ Dextrose) 50 mls @ 100 mls/hr IVPB Q8H-IV CATHERINE; Protocol Last Admin: 08/19/18 10:36 Dose: 100 mls/hr Vancomycin HCl (Vancomycin (Pre-Docked)) 1,000 mg in 250 mls @ 166.667 mls/hr IVPB Q12H CATHERINE; Protocol Levothyroxine Sodium (Synthroid -) 100 mcg GT DAILY@0700 CATHERINE Last Admin: 08/19/18 06:15 Dose: 100 mcg - Objective Vital Signs: Vital Signs Temperature 97.7 F 08/19/18 11:00 Pulse Rate 84 08/19/18 11:00 Respiratory Rate 20 08/19/18 11:00 Blood Pressure 104/55 L 08/19/18 11:00 O2 Sat by Pulse Oximetry (%) 98 08/19/18 09:00 Constitutional: Yes: No Distress Eyes: Yes: WNL Neck: Yes: Other (TRACHEOSTOMY) Cardiovascular: Yes: Regular Rate and Rhythm Respiratory: Yes: Mechanically Ventilated Gastrointestinal: Yes: Soft (GTUBE) Genitourinary: Yes: Incontinence Musculoskeletal: Yes: Muscle Weakness Edema: No Peripheral Pulses WNL: Yes Integumentary: Yes: Rash Wound/Incision: Yes: Dressing Dry and Intact Neurological: Yes: Loss of Sensation, Paresthesia, Pre-Existing Deficit, Weakness ...Motor Strength: LLE, RLE Psychiatric: Yes: Other Labs: CBC, BMP 08/19/18 06:25 08/19/18 06:25 INR, PTT INR 1.22 (0.83-1.09) H 08/19/18 06:25 Problem List - Problems (1) Pneumonia Code(s): J18.9 - PNEUMONIA, UNSPECIFIED ORGANISM Qualifiers: Pneumonia type: due to unspecified organism Laterality: right Lung location: lower lobe of lung Qualified Code(s): J18.1 - Lobar pneumonia, unspecified organism (2) Sepsis Code(s): A41.9 - SEPSIS, UNSPECIFIED ORGANISM Qualifiers: Sepsis type: sepsis due to unspecified organism Qualified Code(s): A41.9 - Sepsis, unspecified organism (3) Abnormal LFTs Code(s): R94.5 - ABNORMAL RESULTS OF LIVER FUNCTION STUDIES (4) Acute on chronic respiratory failure with hypoxia and hypercapnia Code(s): J96.21 - ACUTE AND CHRONIC RESPIRATORY FAILURE WITH HYPOXIA; J96.22 - ACUTE AND CHRONIC RESPIRATORY FAILURE WITH HYPERCAPNIA (5) Anemia Code(s): D64.9 - ANEMIA, UNSPECIFIED Qualifiers: Other causes of anemia: other cause, not classified (6) Dysphagia Code(s): R13.10 - DYSPHAGIA, UNSPECIFIED Qualifiers: Dysphagia type: pharyngoesophageal phase Qualified Code(s): R13.14 - Dysphagia, pharyngoesophageal phase (7) Failure to thrive Code(s): [id number] - (8) Functional 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 (9) Multiple sclerosis Code(s): G35 - MULTIPLE SCLEROSIS (10) Toxic metabolic encephalopathy Code(s): G92 - TOXIC ENCEPHALOPATHY Assessment/Plan IV ABX PER ID CXR NO ACUTE CHANGES RESPIRATORY SUPPORT CONTINUE RESTART FEEDS WOUND CARE SUCTION/RESP LAVAGE
[2018-08-19 15:09] VITALS: BMI 23.8
[2018-08-19] MEDS: VANCOMYCIN 1 GRAM (PRE-DOCKED) 1,000 MG/250 ML BAG IVPB SCH (16:03)
--- NOTE | 2018-08-19 16:18 | ECHO ---
Name: ALONDRA VILA Exam:Adult Echocardiogram Study Date: 08/19/2018 03:31 PM Age: 53 yrs Reason For Study: BACTEREMIA LOOK FOR VEGETATIONS Height: 71 in Weight: 171 lb BSA: 2.0 m2 MMode/2D Measurements & Calculations IVSd: 0.94 cm Ao root diam: 2.6 cm LVIDd: 5.2 cm LA dimension: 3.3 cm LVIDs: 3.5 cm LVPWd: 0.88 cm EDV(Teich): 127.3 ml LVOT diam: 2.1 cm ESV(Teich): 49.3 ml Doppler Measurements & Calculations MV E max saeed: 76.0 cm/sec Ao V2 max: 141.2 cm/sec MV A max saeed: 105.6 cm/sec Ao max P.0 mmHg MV E/A: 0.72 Ao V2 mean: 100.1 cm/sec MV dec time: 0.13 sec Ao mean P.4 mmHg Ao V2 VTI: 28.2 cm VERONICA(I,D): 3.0 cm2 VERONICA(V,D): 3.0 cm2 LV V1 max P.6 mmHg MR max saeed: 340.8 cm/sec LV V1 mean P.7 mmHg MR max P.5 mmHg LV V1 max: 118.5 cm/sec LV V1 mean: 75.4 cm/sec LV V1 VTI: 23.6 cm SV(LVOT): 85.4 ml TR max saeed: 279.6 cm/sec TR max P.3 mmHg Med Peak E' Saeed: 8.8 cm/sec Med E/e': 8.7 Lat Peak E' Saeed: 15.0 cm/sec Lat E/e': 5.1 Procedure The study was technically difficult with many images being suboptimal in quality. Left Ventricle Left ventricular systolic function is normal. Ejection Fraction = 55-60%. Right Ventricle The right ventricle is grossly normal size. The right ventricular systolic function is grossly normal . Atria In multiple views, the free wall of the left atrium appears to be compressed. While this may be an ar tifact or due to patient body habitus, would obtain a chest CT to evaluate for source of external compression. Right atrial size is normal. Mitral Valve The mitral valve is normal in structure and function. There is no mitral valve stenosis. There is mil d mitral regurgitation. Tricuspid Valve The tricuspid valve is normal in structure and function. There is mild tricuspid regurgitation. Right ventricular systolic pressure is elevated at 30-40mmHg. Aortic Valve The aortic valve opens well. No hemodynamically significant valvular aortic stenosis. No aortic regur gitation is present. Pulmonic Valve The pulmonic valve is not well seen, but is grossly normal. There is no pulmonic valvular stenosis. T here is no pulmonic valvular regurgitation. Great Vessels The aortic root is normal size. Pericardium/Pleura There is no pericardial effusion. Interpretation Summary No vegetation is seen. Consider PB if clinically indicated. The study was technically difficult with many images being suboptimal in quality. Left ventricular systolic function is normal. Ejection Fraction = 55-60%. The right ventricle is grossly normal size. The right ventricular systolic function is grossly normal. There is mild mitral regurgitation. There is mild tricuspid regurgitation. Right ventricular systolic pressure is elevated at 30-40mmHg. There is no pericardial effusion. In multiple views, the free wall of the left atrium appears to be compressed. While this may be an ar tifact or due to patient body habitus, would obtain a chest CT to evaluate for source of external compression. MD Doyle *Maddy 08/19/2018 04:18 PM
[2018-08-19] MEDS: clonazePAM 0.5 MG TABLET PO PRN (22:03)
[2018-08-20] MEDS ORDERED: PIPERACILLIN/TAZOBACTAM 3.375 GM VIAL IVPB ONE ×3 (01:19→17:23)
[2018-08-20] MEDS ORDERED: DEXTROSE 5%-WATER - 50 ML IVPB ONE ×3 (01:20→17:23)
[2018-08-20] MEDS: PIPERACILLIN/TAZOB 3.375 GM 3.375 GM in DEXTROSE 5%-WATER - 50 ML IVPB SCH ×3 (02:11→17:38)
[2018-08-20] MEDS: VANCOMYCIN 1 GRAM (PRE-DOCKED) 1,000 MG/250 ML BAG IVPB SCH ×2 (02:40→14:40)
[2018-08-20 04:12] LABS: SERUM IRON SATURATION 16 % (15-55); TOTAL IRON BINDING CAPACITY 213 ug/dL (250-450); UIBC 179 ug/dL (131-425)
[2018-08-20] MEDS: LEVOTHYROXINE NA 100 MCG TABLET (FP) GT SCH (06:35)
[2018-08-20] MEDS: AMINO ACIDS/PROTEIN HYDROLYS 30 ML LIQUID.PKT PO SCH (08:55)
[2018-08-20] MEDS: carBAMazepine 200 MG TABLET GT SCH ×3 (08:56→17:39)
--- NOTE | 2018-08-20 10:19 | PN ---
Progress Note, Physician Chief Complaint: TOLERATING FEEDS NO CP OR FEVERS - Current Medication List Current Medications: Active Medications Albuterol Sulfate (Ventolin 0.083% Nebulizer Soln -) 1 amp NEB Q6H PRN PRN Reason: SHORT OF BREATH/WHEEZING Amino Acids (Prosource No Carb Liquid Pkt) 30 ml PO DAILY@0800 [facility] Carbamazepine (Tegretol -) 200 mg GT TIDCM [facility] Last Admin: 08/19/18 18:15 Dose: 200 mg Clonazepam (Klonopin -) 0.5 mg PO Q12H PRN PRN Reason: ANXIETY Last Admin: 08/19/18 22:03 Dose: 0.5 mg Piperacillin Sod/Tazobactam (Sod 3.375 gm/ Dextrose) 50 mls @ 100 mls/hr IVPB Q8H-IV [facility]; Protocol Last Admin: 08/20/18 02:11 Dose: 100 mls/hr Vancomycin HCl (Vancomycin (Pre-Docked)) 1,000 mg in 250 mls @ 166.667 mls/hr IVPB Q12H [facility]; Protocol Last Admin: 08/20/18 02:40 Dose: 166.667 mls/hr Levothyroxine Sodium (Synthroid -) 100 mcg GT DAILY@0700 [facility] Last Admin: 08/20/18 06:35 Dose: 100 mcg - Objective Vital Signs: Vital Signs Temperature 97.6 F 08/20/18 06:00 Pulse Rate 87 08/20/18 08:14 Respiratory Rate 18 08/20/18 06:30 Blood Pressure 136/76 08/20/18 06:00 O2 Sat by Pulse Oximetry (%) 98 08/20/18 08:14 Constitutional: Yes: No Distress HENT: Yes: Other Neck: Yes: Other (TRACHEOSOTMY) Cardiovascular: Yes: Regular Rate and Rhythm Respiratory: Yes: Mechanically Ventilated Gastrointestinal: Yes: Soft (GTUBE), Other Genitourinary: Yes: Incontinence Musculoskeletal: Yes: Muscle Weakness Extremities: Yes: Other Edema: No Integumentary: Yes: Rash, Other Wound/Incision: Yes: Dressing Dry and Intact Neurological: Yes: Loss of Sensation, Paresthesia, Pre-Existing Deficit, Weakness ...Motor Strength: LLE, RLE Psychiatric: Yes: Other Labs: CBC, BMP 08/19/18 06:25 08/19/18 06:25 INR, PTT INR 1.22 (0.83-1.09) H 08/19/18 06:25 Problem List - Problems (1) Pneumonia Code(s): J18.9 - PNEUMONIA, UNSPECIFIED ORGANISM Qualifiers: Pneumonia type: due to unspecified organism Laterality: right Lung location: lower lobe of lung Qualified Code(s): J18.1 - Lobar pneumonia, unspecified organism (2) Sepsis Code(s): A41.9 - SEPSIS, UNSPECIFIED ORGANISM Qualifiers: Sepsis type: sepsis due to unspecified organism Qualified Code(s): A41.9 - Sepsis, unspecified organism (3) Abnormal LFTs Code(s): R94.5 - ABNORMAL RESULTS OF LIVER FUNCTION STUDIES (4) Acute on chronic respiratory failure with hypoxia and hypercapnia Code(s): J96.21 - ACUTE AND CHRONIC RESPIRATORY FAILURE WITH HYPOXIA; J96.22 - ACUTE AND CHRONIC RESPIRATORY FAILURE WITH HYPERCAPNIA (5) Anemia Code(s): D64.9 - ANEMIA, UNSPECIFIED Qualifiers: Other causes of anemia: other cause, not classified (6) Dysphagia Code(s): R13.10 - DYSPHAGIA, UNSPECIFIED Qualifiers: Dysphagia type: pharyngoesophageal phase Qualified Code(s): R13.14 - Dysphagia, pharyngoesophageal phase (7) Failure to thrive Code(s): [id number] - (8) Functional 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 (9) Multiple sclerosis Code(s): G35 - MULTIPLE SCLEROSIS (10) Toxic metabolic encephalopathy Code(s): G92 - TOXIC ENCEPHALOPATHY Assessment/Plan IV ABX PER ID CXR NO ACUTE CHANGES RESPIRATORY SUPPORT CONTINUE RESTART FEEDS WOUND CARE SUCTION/RESP LAVAGE
--- NOTE | 2018-08-20 11:46 | PN ---
Progress Note (short form) - Note Progress Note: PULMONARY AWAKE/USING THE SPEAKING VALVE REMAINS OFF VENT DURING THE DAY VSS/AFEBRILE PALE GOOD B/L ANTERIOR AIR ENTRY S1S2 BS+ HEEL OFFLOADERS LABS/MEDS/NOTES/IMAGES REVIEWED IMP CHRONIC RESPIRATORY FAILURE RLL PNEUMONIA ALTERED MENTAL STATUS LIKELY TOXIC METABOLIC ENCEPHALOPATHY ADVANCED MULTIPLE SCLEROSIS FUNCTIONAL QUADRIPLEGIA RECURRENT UTIs ANEMIA NEUROGENIC BLADDER HYPOTHYROID PLAN ABX PER ID VENT SUPPORT ON AC MODE AT NIGHT,TRACH COLLAR DURING THE DAY INHALED BRONCHODILATORS CULTURES MONITOR LYTES,CBC F/U CHEST X-RAYS NORMAL TRANSFUSION THRESHOLD Chris TINEO MD
--- NOTE | 2018-08-20 12:35 | PN ---
Progress Note (short form) - Note Progress Note: doing well no complaints trach collar Vital Signs Period Temp Pulse Resp BP Sys/Morillo Pulse Ox Last 24 Hr 97 F-97.6 F 68-93 14-20 136-157/76-93 96-98 cor-rrr lungs decreased bs at bases abd soft,ngt site clean ext no edema CBC, BMP 08/19/18 06:25 08/19/18 06:25 Microbiology 08/18/18 10:30 Urine - Urine - Catheterized Urine Culture - Preliminary Lactose Fermenting Neg Bacilli Lactose Fermenting Neg Bacilli#2 Group D Strep Or Entero Coccus 08/18/18 08:50 Blood - Peripheral Venous Blood Culture - Preliminary NO GROWTH OBTAINED AFTER 48 HOURS, INCUBATION TO CONTINUE FOR 3 DAYS. 08/18/18 08:50 Blood - Peripheral Venous Blood Culture - Preliminary Streptococcus Species 08/18/18 22:00 Sputum - Endotrachea Suction/Ventilator Gram Stain - Final 08/18/18 22:00 Urine For Antigen Detection Legionella Antigen - Final 08/18/18 22:00 Urine For Antigen Detection Streptococcus pneumoniae Antigen (M - Final a/p strep bacteremia- awiating ID of blood culture RLL pneumonia- continue vanco/zosyn MS with functional quadraplegia neurogenic bladder Trach- vent at night d/w patient and mother at bedside
[2018-08-20] MEDS: clonazePAM 0.5 MG TABLET PO PRN (22:22)
[2018-08-21] MEDS ORDERED: PIPERACILLIN/TAZOBACTAM 3.375 GM VIAL IVPB ONE ×3 (01:44→17:42)
[2018-08-21] MEDS ORDERED: DEXTROSE 5%-WATER - 50 ML IVPB ONE ×3 (01:45→17:42)
[2018-08-21] MEDS: VANCOMYCIN 1 GRAM (PRE-DOCKED) 1,000 MG/250 ML BAG IVPB SCH ×2 (02:50→16:25)
[2018-08-21] MEDS: PIPERACILLIN/TAZOB 3.375 GM 3.375 GM in DEXTROSE 5%-WATER - 50 ML IVPB SCH ×3 (02:50→17:46)
[2018-08-21] MEDS: LEVOTHYROXINE NA 100 MCG TABLET (FP) GT SCH (06:16)
[2018-08-21] MEDS ORDERED: PT OWN MED DRAWER 7, Y5N ONE (09:04)
[2018-08-21] MEDS: AMINO ACIDS/PROTEIN HYDROLYS 30 ML LIQUID.PKT PO SCH (09:22)
[2018-08-21] MEDS: carBAMazepine 200 MG TABLET GT SCH ×3 (09:23→17:46)
--- NOTE | 2018-08-21 09:29 | PN ---
Progress Note (short form) - Note Progress Note: PULMONARY AWAKE/USING THE SPEAKING VALVE REMAINS OFF VENT DURING THE DAY MOTHER PRESENT NO DIARRHEA SO FAR NGT FEEDINGS RESTARTED NA 135 STREP MITIS IN BLOOD VSS/AFEBRILE PALE GOOD B/L ANTERIOR AIR ENTRY S1S2 BS+ HEEL OFFLOADERS LABS/MEDS/NOTES/IMAGES/MICRO REVIEWED IMP CHRONIC RESPIRATORY FAILURE RLL PNEUMONIA STREP BACTEREMIA ADVANCED MULTIPLE SCLEROSIS FUNCTIONAL QUADRIPLEGIA RECURRENT UTIs ANEMIA NEUROGENIC BLADDER HYPOTHYROID PLAN ABX PER ID VENT SUPPORT ON AC MODE AT NIGHT,TRACH COLLAR DURING THE DAY INHALED BRONCHODILATORS CULTURES MONITOR LYTES,CBC F/U CHEST X-RAYS NORMAL TRANSFUSION THRESHOLD Chris TINEO MD
--- NOTE | 2018-08-21 10:05 | PN ---
Progress Note (short form) - Note Progress Note: doing well no complaints trach collar alert Vital Signs Period Temp Pulse Resp BP Sys/Morillo Pulse Ox Last 24 Hr 97.3 F-98.6 F 60-92 12-26 129-153/63-100 98-100 cor-rrr lungs decreased bs at baes abd soft,n+GT ext no edema +perera CBC, BMP 08/19/18 06:25 08/19/18 06:25 a/p strep bacteremia- awiating ID of blood culture RLL pneumonia- continue vanco/zosyn MS with functional quadraplegia neurogenic bladder Trach- vent at night check vanco trough todamy f/u blood cultures repeat blood cultures ordered d/w patient and mother at bedside
--- NOTE | 2018-08-21 14:08 | PN ---
Progress Note, Physician Chief Complaint: AWAKE ALERT C/L RIGHT EYE REDNESS TOLERATING GTUBE FEEDS - Current Medication List Current Medications: Active Medications Albuterol Sulfate (Ventolin 0.083% Nebulizer Soln -) 1 amp NEB Q6H PRN PRN Reason: SHORT OF BREATH/WHEEZING Amino Acids (Prosource No Carb Liquid Pkt) 30 ml PO DAILY@0800 [facility] Last Admin: 08/21/18 09:22 Dose: 30 ml Carbamazepine (Tegretol -) 200 mg GT TIDCM [facility] Last Admin: 08/21/18 09:23 Dose: 200 mg Clonazepam (Klonopin -) 0.5 mg PO Q12H PRN PRN Reason: ANXIETY Last Admin: 08/20/18 22:22 Dose: 0.5 mg Piperacillin Sod/Tazobactam (Sod 3.375 gm/ Dextrose) 50 mls @ 100 mls/hr IVPB Q8H-IV [facility]; Protocol Last Admin: 08/21/18 09:22 Dose: 100 mls/hr Vancomycin HCl (Vancomycin (Pre-Docked)) 1,000 mg in 250 mls @ 166.667 mls/hr IVPB Q12H [facility]; Protocol Last Admin: 08/21/18 02:50 Dose: 166.667 mls/hr Levothyroxine Sodium (Synthroid -) 100 mcg GT DAILY@0700 [facility] Last Admin: 08/21/18 06:16 Dose: 100 mcg - Objective Vital Signs: Vital Signs Temperature 97.4 F L 08/21/18 13:55 Pulse Rate 96 H 08/21/18 13:55 Respiratory Rate 18 08/21/18 13:55 Blood Pressure 162/89 08/21/18 13:55 O2 Sat by Pulse Oximetry (%) 100 08/21/18 08:30 Constitutional: Yes: No Distress Eyes: Yes: Other (RIGHT EYE CONJUNCTIVAL HEMMORAGE) HENT: Yes: Other Cardiovascular: Yes: Regular Rate and Rhythm Respiratory: Yes: Mechanically Ventilated Gastrointestinal: Yes: Other Genitourinary: Yes: Raza Present, Incontinence Musculoskeletal: Yes: Muscle Weakness Extremities: Yes: Other Edema: Yes Integumentary: Yes: Rash Wound/Incision: Yes: Dressing Dry and Intact Neurological: Yes: Pre-Existing Deficit, Weakness ...Motor Strength: LLE, RLE Labs: CBC, BMP 08/19/18 06:25 08/19/18 06:25 INR, PTT INR 1.22 (0.83-1.09) H 08/19/18 06:25 Problem List - Problems (1) Pneumonia Code(s): J18.9 - PNEUMONIA, UNSPECIFIED ORGANISM Qualifiers: Pneumonia type: due to unspecified organism Laterality: right Lung location: lower lobe of lung Qualified Code(s): J18.1 - Lobar pneumonia, unspecified organism (2) Sepsis Code(s): A41.9 - SEPSIS, UNSPECIFIED ORGANISM Qualifiers: Sepsis type: sepsis due to unspecified organism Qualified Code(s): A41.9 - Sepsis, unspecified organism (3) Abnormal LFTs Code(s): R94.5 - ABNORMAL RESULTS OF LIVER FUNCTION STUDIES (4) Acute on chronic respiratory failure with hypoxia and hypercapnia Code(s): J96.21 - ACUTE AND CHRONIC RESPIRATORY FAILURE WITH HYPOXIA; J96.22 - ACUTE AND CHRONIC RESPIRATORY FAILURE WITH HYPERCAPNIA (5) Anemia Code(s): D64.9 - ANEMIA, UNSPECIFIED Qualifiers: Other causes of anemia: other cause, not classified (6) Dysphagia Code(s): R13.10 - DYSPHAGIA, UNSPECIFIED Qualifiers: Dysphagia type: pharyngoesophageal phase Qualified Code(s): R13.14 - Dysphagia, pharyngoesophageal phase (7) Failure to thrive Code(s): [id number] - (8) Functional 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 (9) Multiple sclerosis Code(s): G35 - MULTIPLE SCLEROSIS (10) Toxic metabolic encephalopathy Code(s): G92 - TOXIC ENCEPHALOPATHY Assessment/Plan IV ABX PER ID CXR NO ACUTE CHANGES RESPIRATORY SUPPORT CONTINUE RESTART FEEDS WOUND CARE SUCTION/RESP LAVAGE NOTHING TO DO FOR RIGHT EYE CONJUCTIVAL HEMMORAGE
[2018-08-21] MEDS: clonazePAM 0.5 MG TABLET PO PRN (21:24)
[2018-08-22] MEDS ORDERED: DEXTROSE 5%-WATER - 50 ML IVPB ONE ×2 (02:06→09:14)
[2018-08-22] MEDS ORDERED: PIPERACILLIN/TAZOBACTAM 3.375 GM VIAL IVPB ONE ×2 (02:06→09:13)
[2018-08-22] MEDS: PIPERACILLIN/TAZOB 3.375 GM 3.375 GM in DEXTROSE 5%-WATER - 50 ML IVPB SCH ×2 (02:25→09:21)
[2018-08-22] MEDS ORDERED: VANCOMYCIN 1 GM in D5W (PRE-DOCKED) 1,000 MG/250 ML IVPB SCH (06:00)
[2018-08-22] MEDS: LEVOTHYROXINE NA 100 MCG TABLET (FP) GT SCH (06:43)
[2018-08-22] MEDS ORDERED: PT OWN MED DRAWER 7, Y5N ONE ×2 (09:13→18:00)
[2018-08-22] MEDS: AMINO ACIDS/PROTEIN HYDROLYS 30 ML LIQUID.PKT PO SCH (09:21)
[2018-08-22] MEDS: carBAMazepine 200 MG TABLET GT SCH ×3 (09:21→18:05)
--- NOTE | 2018-08-22 09:40 | CONSULT ---
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 S/P Baclofen pump. S/P trach with ventilation at night at home. Progressive dysphagia, s/p PEG with c/o chronic diarrhea . Admitted with 3 days of lethargy, weakness. Found to have RLL Pneumonia. 08/19 Diet order Dys ground/nectar thick liquids. On 08/20, pt c/o nausea. Nursing requested family not feed Ms Skyla Agrawal. During trach care, pink tinged area noted upon suctioning, consistent with aspiration of Thin Red Gatorade given. Pt has been NPO since. ID imp- strep bacteremia- RLL pneumonia- Selected Entries 08/19/18 08/19/18 08/19/18 05:49 11:00 14:00 Breakfast NPO Lunch NPO Supper Temperature 98.2 F 97.7 F 97.4 F L 08/19/18 08/20/18 08/20/18 18:30 00:00 06:00 Breakfast Lunch Supper 50% Temperature 97.2 F L 97 F L 97.6 F 08/20/18 08/20/18 08/20/18 09:00 10:53 15:05 Breakfast 75% Lunch 75% Supper Temperature 97.4 F L 97.3 F L 08/20/18 08/20/18 08/20/18 18:36 19:11 22:00 Breakfast Lunch Supper 50% 50% Temperature 97.4 F L 08/21/18 08/21/18 08/21/18 05:00 09:49 10:19 Breakfast 75% Lunch Supper Temperature 98.2 F 98.6 F 08/21/18 08/21/18 08/21/18 13:55 18:00 22:00 Breakfast Lunch 0 0 Supper Temperature 97.4 F L 98.2 F 08/22/18 06:00 Breakfast Lunch Supper Temperature 98.1 F Laboratory Tests 08/18/18 08/19/18 08:50 06:25 WBC 14.7 H 7.5 - Past Medical History EDGE BONDER: Yes: Multiple Sclerosis (quadraplegia), Other (legally blind, trigeminal neuralgia -> baclofen pump) Cardiovascular: Yes: HTN, Hyperlipdemia Pulmonary: Yes: Pneumonia, Previously Intubated, Other. No: Asthma, Bronchitis , Cancer, COPD, Pulmonary Embolus, Pulmonary Fibrosis, Sleep Apnea Gastrointestinal: Yes: Constipation (chronic) Hepatobiliary: Yes: Cholelithiasis Renal/: Yes: Neurogenic Bladder ( neurogenic bladder, chronic perera catheter) ...LMP: 06/07/12 ...: No Heme/Onc: Yes: Anemia Infectious Disease: Yes: Other (pneumonia, uti treated by urologist) Musculoskeletal: Yes: Other (Quadraplegia) Dermatology: Yes: Other (chronic decubitus followed by wound care) - Past Surgical History Past Surgical History: Yes: Colonoscopy - Smoking History Smoking history: Never smoked Have you smoked in the past 12 months: No Aproximately how many cigarettes per day: 0 - Alcohol/Substance Use Hx Alcohol Use: No History of Substance Use: reports: None - Social History ADL: Support Services History of Recent Travel: No History - Admission Reason For Visit: SEPSIS - Hearing Hearing: Normal Speech Evaluation - Communication Primary Language: DIVEHI - Speech Characteristics Articulation: Yes: Imprecise (mild) - Swallow Evaluation/Bedside Assessment A-P Transit: WFL
--- NOTE | 2018-08-22 11:43 | PN ---
Progress Note (short form) - Note Progress Note: PULMONARY Denies shortness of breath. Some congestion. No fevers or chills. Vital Signs Period Temp Pulse Resp BP Sys/Morillo Pulse Ox Last 24 Hr 97.4 F-98.2 F 78-96 14-18 150-162/77-90 97-98 Gen: vented, awake Heart: RRR Lung: decreased breath sounds at the bases Abd: soft, nontender Ext: no edema CBC, BMP 08/19/18 06:25 08/19/18 06:25 Active Medications Albuterol Sulfate (Ventolin 0.083% Nebulizer Soln -) 1 amp NEB Q6H PRN PRN Reason: SHORT OF BREATH/WHEEZING Amino Acids (Prosource No Carb Liquid Pkt) 30 ml PO DAILY@0800 [facility] Last Admin: 08/22/18 09:21 Dose: 30 ml Carbamazepine (Tegretol -) 200 mg GT TIDCM [facility] Last Admin: 08/22/18 09:21 Dose: 200 mg Piperacillin Sod/Tazobactam (Sod 3.375 gm/ Dextrose) 50 mls @ 100 mls/hr IVPB Q8H-IV [facility]; Protocol Last Admin: 08/22/18 09:21 Dose: 100 mls/hr Levothyroxine Sodium (Synthroid -) 100 mcg GT DAILY@0700 [facility] Last Admin: 08/22/18 06:43 Dose: 100 mcg Vancomycin HCl (Vancomycin (Pre-Docked)) 1,000 mg IVPB Q24H [facility] Last Admin: 08/22/18 06:43 Dose: 1,000 mg A/P Chronic Respiratory Failure Pneumonia UTI Multiple Sclerosis Functional Quadriplegia Neurogenic Bladder Hypothyroidism - continue antibiotics per ID - trach collar/PMV during day, vent support at night - O2 to keep SpO2 >90% - inhaled bronchodilators - chest PT - DVT prophylaxis
--- NOTE | 2018-08-22 11:46 | PN ---
Progress Note, Physician Chief Complaint: Multiple Sclerosis Pneumonia History of Present Illness: Previous notes and events reviewed awake and alert NAD Abdominal US shows dilated CBD MBS ordered - Current Medication List Current Medications: Active Medications Albuterol Sulfate (Ventolin 0.083% Nebulizer Soln -) 1 amp NEB Q6H PRN PRN Reason: SHORT OF BREATH/WHEEZING Amino Acids (Prosource No Carb Liquid Pkt) 30 ml PO DAILY@0800 [facility] Last Admin: 08/22/18 09:21 Dose: 30 ml Carbamazepine (Tegretol -) 200 mg GT TIDCM [facility] Last Admin: 08/22/18 09:21 Dose: 200 mg Piperacillin Sod/Tazobactam (Sod 3.375 gm/ Dextrose) 50 mls @ 100 mls/hr IVPB Q8H-IV [facility]; Protocol Last Admin: 08/22/18 09:21 Dose: 100 mls/hr Levothyroxine Sodium (Synthroid -) 100 mcg GT DAILY@0700 [facility] Last Admin: 08/22/18 06:43 Dose: 100 mcg Vancomycin HCl (Vancomycin (Pre-Docked)) 1,000 mg IVPB Q24H [facility] Last Admin: 08/22/18 06:43 Dose: 1,000 mg - Objective Vital Signs: Vital Signs Temperature 98.1 F 08/22/18 06:00 Pulse Rate 83 08/22/18 08:05 Respiratory Rate 15 08/22/18 06:00 Blood Pressure 150/83 08/22/18 06:00 O2 Sat by Pulse Oximetry (%) 97 08/22/18 08:05 Constitutional: Yes: No Distress, Calm Eyes: Yes: Conjunctiva Clear HENT: Yes: Atraumatic Neck: Yes: Other (trach) Cardiovascular: Yes: Regular Rate and Rhythm Respiratory: Yes: Mechanically Ventilated, Rhonchi Gastrointestinal: Yes: Normal Bowel Sounds, Soft, Other (PEG) Musculoskeletal: Yes: Muscle Weakness Extremities: Yes: WNL Edema: No Neurological: Yes: Alert, Pre-Existing Deficit Psychiatric: Yes: Alert, Oriented Labs: CBC, BMP 08/19/18 06:25 08/19/18 06:25 INR, PTT INR 1.22 (0.83-1.09) H 08/19/18 06:25 Microbiology 08/18/18 22:00 Gram Stain - Final Sputum - Endotrachea Suction/Ventilator Sputum Culture - Preliminary Pseudomonas Aeruginosa Serratia Marcescens Pending Organism 08/21/18 10:40 Blood Culture - Preliminary Blood - Peripheral Venous NO GROWTH OBTAINED AFTER 24 HOURS, INCUBATION TO CONTINUE FOR 4 DAYS. 08/21/18 10:35 Blood Culture - Preliminary Blood - Peripheral Venous NO GROWTH OBTAINED AFTER 24 HOURS, INCUBATION TO CONTINUE FOR 4 DAYS. 08/18/18 08:50 Blood Culture - Preliminary Blood - Peripheral Venous NO GROWTH OBTAINED AFTER 96 HOURS, INCUBATION TO CONTINUE FOR 1 DAYS. 08/18/18 10:30 Urine Culture - Final Urine - Urine - Catheterized Klebsiella Pneumoniae Citrobacter Freundii Enterococcus Faecalis 08/18/18 08:50 Blood Culture - Preliminary Blood - Peripheral Venous Streptococcus Mitis Problem List - Problems (1) Pneumonia Code(s): J18.9 - PNEUMONIA, UNSPECIFIED ORGANISM Qualifiers: Pneumonia type: due to unspecified organism Laterality: right Lung location: lower lobe of lung Qualified Code(s): J18.1 - Lobar pneumonia, unspecified organism (2) Sepsis Code(s): A41.9 - SEPSIS, UNSPECIFIED ORGANISM Qualifiers: Sepsis type: sepsis due to unspecified organism Qualified Code(s): A41.9 - Sepsis, unspecified organism (3) Abnormal LFTs Code(s): R94.5 - ABNORMAL RESULTS OF LIVER FUNCTION STUDIES (4) Acute on chronic respiratory failure with hypoxia and hypercapnia Code(s): J96.21 - ACUTE AND CHRONIC RESPIRATORY FAILURE WITH HYPOXIA; J96.22 - ACUTE AND CHRONIC RESPIRATORY FAILURE WITH HYPERCAPNIA (5) Functional 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 (6) HTN (hypertension) Code(s): I10 - ESSENTIAL (PRIMARY) HYPERTENSION (7) Hx of multiple sclerosis Code(s): Z86.69 - PERSONAL HISTORY OF DIS OF THE NERVOUS SYS AND SENSE ORGANS
--- NOTE | 2018-08-22 13:03 | CON.GI ---
Consult Consult Specialty:: Gastroenterology Referred by:: Dr. Myers Reason for Consultation:: Dilated CBD - History of Present Illness Chief Complaint: Diarrhea, fatigue History of Present Illness: 53yo female h/o advanced MS s/p trach (on vent QHS), recent gastrostomy placed by IR (05/25/18), functional quadraplegia, trigeminal neuralgia, chronic pain on baclofen pump, recurrent UTI, HTN, presenting with loose stools and fatigue asked to evaluate for biliary dilation. Pts mother at bedside, also provides history, reporting loose stools and worsening fatigue prompting hospitalization found to have strep bacteremia and right sided pneumonia receiving antibiotics. At baseline reports mostly formed bm every 1-2 days, however reporting loose bms 2-3x daily, now improving during hospitalization. Denies abdominal pain, n/v or fever/chills. Tolerating PEG feeds, also able to take po pending swallow study today. Pt found to have elevated alk phos and underwent abd US revealing hepatomegaly, gallstones and dilated CBD to 8mm. therefore GI consulted. Note longstanding alk phos elevation at least over the past 1-2 years. Pt denies history of liver disease or prior etoh use. 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 No: Asthma, Bronchitis , Cancer, COPD, Pulmonary Embolus, Pulmonary Fibrosis, Sleep Apnea Gastrointestinal: Yes: Constipation (chronic) Hepatobiliary: Yes: Cholelithiasis Renal/: Yes: Neurogenic Bladder ( neurogenic bladder, chronic perera catheter) ...LMP: 06/07/12 ...: No Infectious Disease: Yes: Other (pneumonia, uti treated by urologist) Musculoskeletal: Yes: Other (Quadraplegia) Dermatology: Yes: Other (chronic decubitus followed by wound care) Additional Medical History: trigeminal neuralgia, baclofen pump. chronic decubitus followed by wound care. neurogenic bladder, chronic perera catheter - Past Surgical History Past Surgical History: Yes: Colonoscopy - Alcohol/Substance Use Hx Alcohol Use: No History of Substance Use: reports: None - Smoking History Smoking history: Never smoked Have you smoked in the past 12 months: No Aproximately how many cigarettes per day: 0 - Social History Usual Living Arrangement: With Parent ADL: Support Services History of Recent Travel: No Home Medications - Allergies Allergies/Adverse Reactions: Allergies Allergy/AdvReac Type Severity Reaction Status Date / Time chloral hydrate Allergy Intermediate Rash Verified 08/18/18 08:28 [Chloral Hydrate] azathioprine [From Imuran] Allergy Rash Verified 08/18/18 08:28 azathioprine sodium Allergy Rash Verified 08/18/18 08:28 [From Imuran] adhesive tape AdvReac Severe sensitivity Verified 08/18/18 08:28 to glue adhesive AdvReac Unknown Verified 08/18/18 08:28 - Home Medications Home Medications: Ambulatory Orders Melatonin 2 mg PO HS 05/03/18 Multivitamin [Multiple Vitamins] 1 each PO DAILY 05/03/18 Potassium Chloride [K-Dur -] 20 meq PO DAILY 05/03/18 Albuterol 2.5/Ipratropium 0.5 [Duoneb -] 1 amp NEB Q6H PRN #45 amp 05/28/18 Ascorbic Acid [Vitamin C -] 500 mg PO DAILY #30 tablet 05/28/18 Cyanocobalamin [Vitamin B12 -] 1,000 mcg NGT DAILY #30 tablet 05/28/18 Folic Acid - 1 mg NGT DAILY #30 tablet 05/28/18 Lactobacillus Acidophilus [Bacid -] 1 tab NGT BID #14 tab 05/28/18 Levothyroxine [Synthroid -] 100 mcg NGT DAILY@0700 #30 tablet 05/28/18 Loratadine [Claritin -] 10 mg NGT DAILY #30 tablet 05/28/18 Mirtazapine [Remeron -] 7.5 mg NGT HS #30 tablet 05/28/18 Sertraline HCl [Zoloft -] 50 mg NGT DAILY #30 tablet 05/28/18 Zinc Sulfate [Orazinc -] 220 mg NGT DAILY #30 capsule 05/28/18 hydrALAZINE HCL [Apresoline -] 50 mg NGT TID #90 tablet 05/28/18 Furosemide 20 mg PO DAILY 07/20/18 Cefuroxime Axetil [Ceftin -] 500 mg PO BID 7 Days #14 tablet 07/25/18 Metoprolol Tartrate [Lopressor -] 25 mg PEG BID #60 tablet 07/25/18 Pregabalin [Lyrica -] 25 mg PO TID #6 capsule MDD 3 07/25/18 Sodium Chloride Tablet - 1 gm GT DAILY #30 tablet 07/25/18 clonazePAM [Klonopin -] 0.5 mg PEG HS PRN #2 tablet MDD 1 07/25/18 Carbamazepine [Tegretol -] 200 mg PO TID 08/18/18 Family Disease History - Family Disease History Family Disease History: Diabetes: Sister, Other: Mother Physical Exam-GI Vital Signs: Vital Signs Temperature 98.1 F 08/22/18 06:00 Pulse Rate 79 08/22/18 11:58 Respiratory Rate 15 08/22/18 06:00 Blood Pressure 150/83 08/22/18 06:00 O2 Sat by Pulse Oximetry (%) 98 08/22/18 11:58 Constitutional: Yes: Well Nourished, No Distress, Other (Awake, alert) Cardiovascular: Yes: WNL, Regular Rate and Rhythm Respiratory: Yes: Mechanically Ventilated ...Palpate: Yes: Other (Abd soft, nontender, nondistended +Gastrostomy in place) Labs: CBC, BMP 08/19/18 06:25 08/19/18 06:25 INR, PTT INR 1.22 (0.83-1.09) H 08/19/18 06:25 Imaging - Results Ultrasound: Report Reviewed Problem List - Problems (1) Dilated bile duct Assessment/Plan: 53yo female h/o advanced MS s/p trach (on vent QHS), recent gastrostomy placed by IR (05/25/18), functional quadraplegia, trigeminal neuralgia, chronic pain on baclofen pump, recurrent UTI, HTN, presenting with loose stools and fatigue being treated for strep bacteremia and pneumonia asked to evaluate for biliary dilation seen on US imaging in setting of gallstones with longstanding alk phos elevation. Otherwise normal LFTs. Clinically improving. No abdominal pain or fever/chills. Low albumin otherwise no clinical or biochemical features of advanced liver disease/cirrhosis. -No urgent indication for ERCP at this time -Recommend MRCP to further evaluate the biliary tree r/o biliary obstructive process when feasible and pt further optimized -Continue to monitor LFT trend -Check hepatitis B surface ab to assess immunity status -Check AMA, ASMA -Avoid nonessential hepatotoxic medications Code(s): K83.8 - OTHER SPECIFIED DISEASES OF BILIARY TRACT
[2018-08-22] MEDS ORDERED: ALBUTEROL SO4 0.083% IH SOL 2.5 MG/3 ML VIAL.NEB. NEB SCH (14:00)
--- NOTE | 2018-08-22 16:41 | DS ---
Physical Examination Vital Signs: Vital Signs Temperature 98.6 F 08/22/18 14:47 Pulse Rate 82 08/22/18 14:53 Respiratory Rate 16 08/22/18 14:47 Blood Pressure 154/92 08/22/18 14:47 O2 Sat by Pulse Oximetry (%) 98 08/22/18 15:28 Findings/Remarks: Patient is a 53 y/o female with MS s/p trach, functional quadriplegia, HTN, HLD. Patient presented with watery stools and AMS. patient was noted with increased somnolence and complaints of weakness. CXR in ER showed RLL infiltrate seen by ID and started on ABT. Constitutional: Yes: No Distress, Calm Eyes: Yes: Other (redness r outer eye corner) HENT: Yes: Atraumatic Neck: Yes: Other (trach) Cardiovascular: Yes: Regular Rate and Rhythm Respiratory: Yes: Regular, Diminished, Mechanically Ventilated Gastrointestinal: Yes: Normal Bowel Sounds, Soft, Other (PEG) Renal/: Yes: Raza Present Musculoskeletal: Yes: Muscle Weakness Extremities: Yes: WNL Edema: No Neurological: Yes: Alert, Oriented Psychiatric: Yes: Alert, Oriented Labs: CBC, BMP 08/19/18 06:25 08/19/18 06:25 Microbiology 08/18/18 22:00 Gram Stain - Final Sputum - Endotrachea Suction/Ventilator Sputum Culture - Preliminary Pseudomonas Aeruginosa Serratia Marcescens Beta Hem Streptococcus Group G 08/18/18 08:50 Blood Culture - Final Blood - Peripheral Venous Streptococcus Mitis 08/21/18 10:40 Blood Culture - Preliminary Blood - Peripheral Venous NO GROWTH OBTAINED AFTER 24 HOURS, INCUBATION TO CONTINUE FOR 4 DAYS. 08/21/18 10:35 Blood Culture - Preliminary Blood - Peripheral Venous NO GROWTH OBTAINED AFTER 24 HOURS, INCUBATION TO CONTINUE FOR 4 DAYS. 08/18/18 08:50 Blood Culture - Preliminary Blood - Peripheral Venous NO GROWTH OBTAINED AFTER 96 HOURS, INCUBATION TO CONTINUE FOR 1 DAYS. 08/18/18 10:30 Urine Culture - Final Urine - Urine - Catheterized Klebsiella Pneumoniae Citrobacter Freundii Enterococcus Faecalis Discharge Summary Reason For Visit: SEPSIS Current Active Problems Dilated bile duct (Acute) Pneumonia (Acute) Sepsis (Acute) Hospital Course: see progress notes Laboratory Tests 08/18/18 08/18/18 08/18/18 08:50 08:50 08:50 WBC 14.7 H RBC 2.55 L Hgb 8.1 L Hct 24.2 L MCV 95.0 MCH 31.8 MCHC 33.5 RDW 16.3 H Plt Count 236 D MPV 10.1 D Absolute Neuts (auto) 8.4 H Neutrophils % 75.3 Lymphocytes % 11.6 Monocytes % 7.6 Eosinophils % 5.0 H Basophils % 0.5 D Nucleated RBC % 0 PT with INR INR PTT (Actin FS) Sodium Cancelled Potassium Cancelled Chloride Cancelled Carbon Dioxide Cancelled Anion Gap Cancelled BUN Cancelled Creatinine Cancelled Est GFR (CKD-EPI)AfAm Cancelled Est GFR (CKD-EPI)NonAf Cancelled Random Glucose Cancelled Lactic Acid 0.4 Calcium Cancelled Phosphorus Magnesium Iron TIBC Iron Saturation Ferritin Total Bilirubin Cancelled AST Cancelled ALT Cancelled Alkaline Phosphatase Cancelled Troponin I Cancelled Total Protein Cancelled Albumin Cancelled TSH Urine Color Urine Appearance Urine pH Ur Specific Tribune Urine Protein Urine Glucose (UA) Urine Ketones Urine Blood Urine Nitrite Urine Bilirubin Urine Urobilinogen Ur Leukocyte Esterase Urine WBC (Auto) Urine RBC (Auto) Urine Casts (Auto) U Epithel Cells (Auto) Urine Bacteria (Auto) Vancomycin Pre-Dose Carbamazepine 08/18/18 08/18/18 08/18/18 09:21 10:11 10:11 WBC RBC Hgb Hct MCV MCH MCHC RDW Plt Count MPV Absolute Neuts (auto) Neutrophils % Lymphocytes % Monocytes % Eosinophils % Basophils % Nucleated RBC % PT with INR 13.20 H INR 1.12 H PTT (Actin FS) 46.4 H Sodium 131 L 131 L Potassium 5.8 H 5.8 H Chloride 96 L 96 L Carbon Dioxide 32 29 Anion Gap 3 L 6 L BUN 33.4 H 33.0 H Creatinine 0.6 0.6 Est GFR (CKD-EPI)AfAm 119.77 119.77 Est GFR (CKD-EPI)NonAf 103.34 103.34 Random Glucose 65 L 66 L Lactic Acid Calcium 8.7 8.7 Phosphorus Magnesium Iron TIBC Iron Saturation Ferritin Total Bilirubin 0.1 L < 0.1 L AST 50 H 50 H ALT 56 54 Alkaline Phosphatase 386 H 372 H Troponin I < 0.02 Total Protein 7.5 7.4 Albumin 2.4 L 2.4 L TSH Urine Color Urine Appearance Urine pH Ur Specific [place] Urine Protein Urine Glucose (UA) Urine Ketones Urine Blood Urine Nitrite Urine Bilirubin Urine Urobilinogen Ur Leukocyte Esterase Urine WBC (Auto) Urine RBC (Auto) Urine Casts (Auto) U Epithel Cells (Auto) Urine Bacteria (Auto) Vancomycin Pre-Dose Carbamazepine 08/18/18 08/18/18 08/18/18 10:30 14:06 16:00 WBC RBC Hgb Hct MCV MCH MCHC RDW Plt Count MPV Absolute Neuts (auto) Neutrophils % Lymphocytes % Monocytes % Eosinophils % Basophils % Nucleated RBC % PT with INR INR PTT (Actin FS) Sodium 134 L Potassium 5.5 H Chloride 99 Carbon Dioxide 30 Anion Gap 4 L BUN 28.8 H Creatinine 0.5 L Est GFR (CKD-EPI)AfAm 127.17 Est GFR (CKD-EPI)NonAf 109.72 Random Glucose 82 Lactic Acid Calcium 8.4 L Phosphorus Magnesium Iron TIBC Iron Saturation Ferritin Total Bilirubin 0.1 L AST 46 H ALT 58 Alkaline Phosphatase 348 H Troponin I Total Protein 7.4 Albumin 2.3 L TSH Urine Color Yellow Urine Appearance Clear Urine pH 7.5 Ur Specific [place] 1.006 L Urine Protein Negative Urine Glucose (UA) Negative Urine Ketones Negative Urine Blood Negative Urine Nitrite Negative Urine Bilirubin Negative Urine Urobilinogen 0.2 Ur Leukocyte Esterase 2+ H Urine WBC (Auto) 13 Urine RBC (Auto) 1 Urine Casts (Auto) 1 U Epithel Cells (Auto) 3.1 Urine Bacteria (Auto) 3449.3 Vancomycin Pre-Dose Carbamazepine < 0.5 L 08/19/18 08/19/18 08/19/18 06:25 06:25 06:25 WBC 7.5 RBC 2.82 L Hgb 8.7 L Hct 26.6 L MCV 94.3 MCH 30.9 MCHC 32.8 RDW 16.4 H Plt Count 209 MPV 9.3 Absolute Neuts (auto) Neutrophils % Lymphocytes % Monocytes % Eosinophils % Basophils % Nucleated RBC % PT with INR 14.40 H INR 1.22 H PTT (Actin FS) 47.0 H Sodium 135 L Potassium 4.9 Chloride 101 Carbon Dioxide 29 Anion Gap 5 L BUN 24.6 H Creatinine 0.6 Est GFR (CKD-EPI)AfAm 119.77 Est GFR (CKD-EPI)NonAf 103.34 Random Glucose 77 Lactic Acid Calcium 8.7 Phosphorus 4.0 Magnesium 2.7 H Iron TIBC Iron Saturation Ferritin Total Bilirubin 0.3 AST 34 ALT 52 Alkaline Phosphatase 294 H Troponin I Total Protein 7.8 Albumin 2.4 L TSH 1.10 Urine Color Urine Appearance Urine pH Ur Specific [place] Urine Protein Urine Glucose (UA) Urine Ketones Urine Blood Urine Nitrite Urine Bilirubin Urine Urobilinogen Ur Leukocyte Esterase Urine WBC (Auto) Urine RBC (Auto) Urine Casts (Auto) U Epithel Cells (Auto) Urine Bacteria (Auto) Vancomycin Pre-Dose Carbamazepine 08/19/18 08/19/18 08/21/18 06:25 06:25 15:05 WBC RBC Hgb Hct MCV MCH MCHC RDW Plt Count MPV Absolute Neuts (auto) Neutrophils % Lymphocytes % Monocytes % Eosinophils % Basophils % Nucleated RBC % PT with INR INR PTT (Actin FS) Sodium Potassium Chloride Carbon Dioxide Anion Gap BUN Creatinine Est GFR (CKD-EPI)AfAm Est GFR (CKD-EPI)NonAf Random Glucose Lactic Acid Calcium Phosphorus Magnesium Iron 34 TIBC 213 L Iron Saturation 16 Ferritin 1476.4 H Total Bilirubin AST ALT Alkaline Phosphatase Troponin I Total Protein Albumin TSH Urine Color Urine Appearance Urine pH Ur Specific [place] Urine Protein Urine Glucose (UA) Urine Ketones Urine Blood Urine Nitrite Urine Bilirubin Urine Urobilinogen Ur Leukocyte Esterase Urine WBC (Auto) Urine RBC (Auto) Urine Casts (Auto) U Epithel Cells (Auto) Urine Bacteria (Auto) Vancomycin Pre-Dose 20.5 Carbamazepine Active Medications Generic Name Dose Route Start Last Admin Trade Name Freq PRN Reason Stop Dose Admin Albuterol Sulfate 1 amp 08/22/18 14:00 08/22/18 14:52 Ventolin 0.083% Nebulizer Soln - NEB 1 amp RTID [facility] Administration Amino Acids 30 ml 08/20/18 08:00 08/22/18 09:21 Prosource No Carb Liquid Pkt PO 30 ml DAILY@0800 [facility] Administration Amoxicillin/Clavulanate Potassium 1 tab 08/22/18 17:30 Augmentin - 875mg Tablet PO 08/29/18 17:29 BID@0800,1730 [facility] Carbamazepine 200 mg 08/18/18 17:30 08/22/18 14:39 Tegretol - GT 200 mg TIDCM [facility]ATH[facility] Administration Levothyroxine Sodium 100 mcg 08/19/18 07:00 08/22/18 06:43 Synthroid - GT 100 mcg DAILY@0700 [facility] Administration Microbiology 08/18/18 22:00 Sputum - Endotrachea Suction/Ventilator Gram Stain - Final 08/18/18 22:00 Sputum - Endotrachea Suction/Ventilator Sputum Culture - Preliminary Pseudomonas Aeruginosa Serratia Marcescens Beta Hem Streptococcus Group G 08/18/18 08:50 Blood - Peripheral Venous Blood Culture - Final Streptococcus Mitis 08/21/18 10:40 Blood - Peripheral Venous Blood Culture - Preliminary NO GROWTH OBTAINED AFTER 24 HOURS, INCUBATION TO CONTINUE FOR 4 DAYS. 08/21/18 10:35 Blood - Peripheral Venous Blood Culture - Preliminary NO GROWTH OBTAINED AFTER 24 HOURS, INCUBATION TO CONTINUE FOR 4 DAYS. 08/18/18 08:50 Blood - Peripheral Venous Blood Culture - Preliminary NO GROWTH OBTAINED AFTER 96 HOURS, INCUBATION TO CONTINUE FOR 1 DAYS. 08/18/18 10:30 Urine - Urine - Catheterized Urine Culture - Final Klebsiella Pneumoniae Citrobacter Freundii Enterococcus Faecalis 08/18/18 22:00 Urine For Antigen Detection Legionella Antigen - Final 08/18/18 22:00 Urine For Antigen Detection Streptococcus pneumoniae Antigen (M - Final Condition: Stable - Instructions Diet, Activity, Other Instructions: follow up with PMD in 48hrs post discharge follow up [facility] GI Dr Griffiths for further outpatient GI workup return to ER if develop respiratory distress, severe pain, chest pain, AMS continue with antibiotic therapy as prescribed Referrals: Silverio Griffiths MD [Staff Physician] - Disposition: VNS/HOME HEALTH CARE - Home Medications Comprehensive Discharge Medication List: Ambulatory Orders Melatonin 2 mg PO HS 05/03/18 Multivitamin [Multiple Vitamins] 1 each PO DAILY 05/03/18 Potassium Chloride [K-Dur -] 20 meq PO DAILY 05/03/18 Albuterol 2.5/Ipratropium 0.5 [Duoneb -] 1 amp NEB Q6H PRN #45 amp 05/28/18 Ascorbic Acid [Vitamin C -] 500 mg PO DAILY #30 tablet 05/28/18 Cyanocobalamin [Vitamin B12 -] 1,000 mcg NGT DAILY #30 tablet 05/28/18 Folic Acid - 1 mg NGT DAILY #30 tablet 05/28/18 Lactobacillus Acidophilus [Bacid -] 1 tab NGT BID #14 tab 05/28/18 Levothyroxine [Synthroid -] 100 mcg NGT DAILY@0700 #30 tablet 05/28/18 Loratadine [Claritin -] 10 mg NGT DAILY #30 tablet 05/28/18 Mirtazapine [Remeron -] 7.5 mg NGT HS #30 tablet 05/28/18 Sertraline HCl [Zoloft -] 50 mg NGT DAILY #30 tablet 05/28/18 Zinc Sulfate [Orazinc -] 220 mg NGT DAILY #30 capsule 05/28/18 hydrALAZINE HCL [Apresoline -] 50 mg NGT TID #90 tablet 05/28/18 Furosemide 20 mg PO DAILY 07/20/18 Metoprolol Tartrate [Lopressor -] 25 mg PEG BID #60 tablet 07/25/18 Pregabalin [Lyrica -] 25 mg PO TID #6 capsule MDD 3 07/25/18 Sodium Chloride Tablet - 1 gm GT DAILY #30 tablet 07/25/18 clonazePAM [Klonopin -] 0.5 mg PEG HS PRN #2 tablet MDD 1 07/25/18 Carbamazepine [Tegretol -] 200 mg PO TID 08/18/18 Albuterol 0.083% Nebulizer Rocio [Ventolin 0.083% Nebulizer Soln -] 1 amp NEB RTID #90 amp 08/22/18 Amino Acids/Protein Hydrolys [Prosource No Carb Liquid Pkt] 30 ml PO DAILY@0800 packet 08/22/18 Amox-Tr/K Cl [Augmentin 875-125mg Tablet -] 1 tab PO BID@0800,1730 #14 tablet Carbamazepine [Tegretol -] 200 mg GT TIDCM tablet 08/22/18 Levothyroxine [Synthroid -] 100 mcg GT DAILY@0700 tablet 08/22/18 clonazePAM [Klonopin -] 0.5 mg PO Q12H PRN tablet MDD 2 08/22/18
[2018-08-22] MEDS ORDERED: AMOX TR/POT CLAV 875MG/125MG TABLETS (FP) PO SCH (17:30)
[2018-08-22 18:38] VITALS: BP 156/82; PULSE 90; TEMP 97.6
== END 2018-08-22 18:48 | disposition home health service (06) | DRG 871 ==
LOC: JER 08:22 → JERBED 09:44 → J5S 17:51
PROVIDERS: ADMIT Family Medicine; ATTEND Family Medicine
PROC: 3E0G76Z Introduction of Nutritional Substance into Upper GI, Via Natural or Artificial Opening (ICD-10-PCS; principal; 2018-08-18)
PROC: 5A1945Z Respiratory Ventilation, 24-96 Consecutive Hours (ICD-10-PCS; 2018-08-18)
DX: A40.9 Streptococcal sepsis, unspecified (principal); R53.2 Functional quadriplegia; J18.1 Lobar pneumonia, unspecified organism; G92 Toxic encephalopathy; E87.1 Hypo-osmolality and hyponatremia; J96.10 Chronic respiratory failure, unspecified whether with hypoxia or hypercapnia; I10 Essential (primary) hypertension; E78.5 Hyperlipidemia, unspecified; Z93.0 Tracheostomy status; G35 Multiple sclerosis; N31.9 Neuromuscular dysfunction of bladder, unspecified; H54.8 Legal blindness, as defined in USA; G50.0 Trigeminal neuralgia; D64.9 Anemia, unspecified; R19.7 Diarrhea, unspecified; Z74.01 Bed confinement status; E03.9 Hypothyroidism, unspecified; Z87.440 Personal history of urinary (tract) infections; Z93.1 Gastrostomy status; H11.31 Conjunctival hemorrhage, right eye; F32.9 Major depressive disorder, single episode, unspecified; G89.29 Other chronic pain; K83.8 Other specified diseases of biliary tract
CPT/HCPCS: 36415; 71045-TC-FY; 74230-TC-FY; 76705-TC; 80053; 80156; 81003; 82728; 83540; 83550; 83605; 83735; 84100; 84443; 84484; 85025; 85027; 85610; 85730; 87040; 87070; 87086; 87186; 87205; 87899; 92611-GN; 93005; 93010; 93306-TC; 94002; 94640; 99284-25; G0480; J7030

== ENCOUNTER 2018-08-24 10:47 | Emergency (ER) | payer OTHER ==
[2018-08-24 10:59] VITALS: BP 122/65; PULSE 70; TEMP 97.6; BMI 22.3
--- NOTE | 2018-08-24 12:42 | PDOC ---
History of Present Illness - General Chief Complaint: G Tube Problem Stated Complaint: FEEDING TUBE CLOGGED Time Seen by Provider: 08/24/18 12:05 History Source: Patient Exam Limitations: No Limitations - History of Present Illness Initial Comments: 08/24/18 13:09 53 year old female with PMH MS, trach, G-tube, hypothyroidism, trigeminal neuralgia, hyponatremia, pneumonia, recurrent UTI, on home O2 2L, wheelchair bound presented to ED for G-tube clogging since yesterday. Pt reported no other complaints. Pt's sister at bedside is an RN, attempted to flush the G-tube herself, without success. Past History - Past Medical History Allergies/Adverse Reactions: Allergies Allergy/AdvReac Type Severity Reaction Status Date / Time chloral hydrate Allergy Intermediate Rash Verified 08/18/18 08:28 [Chloral Hydrate] azathioprine [From Imuran] Allergy Rash Verified 08/18/18 08:28 azathioprine sodium Allergy Rash Verified 08/18/18 08:28 [From Imuran] adhesive tape AdvReac Severe sensitivity Verified 08/18/18 08:28 to glue adhesive AdvReac Unknown Verified 08/18/18 08:28 Home Medications: Ambulatory Orders Melatonin 2 mg PO HS 05/03/18 Multivitamin [Multiple Vitamins] 1 each PO DAILY 05/03/18 Potassium Chloride [K-Dur -] 20 meq PO DAILY 05/03/18 Albuterol 2.5/Ipratropium 0.5 [Duoneb -] 1 amp NEB Q6H PRN #45 amp 05/28/18 Ascorbic Acid [Vitamin C -] 500 mg PO DAILY #30 tablet 05/28/18 Cyanocobalamin [Vitamin B12 -] 1,000 mcg NGT DAILY #30 tablet 05/28/18 Folic Acid - 1 mg NGT DAILY #30 tablet 05/28/18 Lactobacillus Acidophilus [Bacid -] 1 tab NGT BID #14 tab 05/28/18 Levothyroxine [Synthroid -] 100 mcg NGT DAILY@0700 #30 tablet 05/28/18 Loratadine [Claritin -] 10 mg NGT DAILY #30 tablet 05/28/18 Mirtazapine [Remeron -] 7.5 mg NGT HS #30 tablet 05/28/18 Sertraline HCl [Zoloft -] 50 mg NGT DAILY #30 tablet 05/28/18 Zinc Sulfate [Orazinc -] 220 mg NGT DAILY #30 capsule 05/28/18 hydrALAZINE HCL [Apresoline -] 50 mg NGT TID #90 tablet 05/28/18 Furosemide 20 mg PO DAILY 07/20/18 Metoprolol Tartrate [Lopressor -] 25 mg PEG BID #60 tablet 07/25/18 Pregabalin [Lyrica -] 25 mg PO TID #6 capsule MDD 3 07/25/18 Sodium Chloride Tablet - 1 gm GT DAILY #30 tablet 07/25/18 clonazePAM [Klonopin -] 0.5 mg PEG HS PRN #2 tablet MDD 1 07/25/18 Carbamazepine [Tegretol -] 200 mg PO TID 08/18/18 Albuterol 0.083% Nebulizer Rocio [Ventolin 0.083% Nebulizer Soln -] 1 amp NEB RTID #90 amp 08/22/18 Amino Acids/Protein Hydrolys [Prosource No Carb Liquid Pkt] 30 ml PO DAILY@0800 packet 08/22/18 Amox-Tr/K Cl [Augmentin 875-125mg Tablet -] 1 tab PO BID@0800,1730 #14 tablet Carbamazepine [Tegretol -] 200 mg GT TIDCM tablet 08/22/18 Levothyroxine [Synthroid -] 100 mcg GT DAILY@0700 tablet 08/22/18 clonazePAM [Klonopin -] 0.5 mg PO Q12H PRN tablet MDD 2 08/22/18 Anemia: Yes Asthma: No Cancer: No Cardiac Disorders: No CVA: No COPD: No CHF: No DVT: No Dementia: No (M.S,TRIG.NEUROLAGIA) Diabetes: No GI Disorders: Yes Disorders: Yes (baclofen implant) HTN: Yes Hypercholesterolemia: No Liver Disease: No Seizures: Yes Thyroid Disease: No - Surgical History Abdominal Surgery: No Appendectomy: Yes (FEEDING TUBE) Cardiac Surgery: No Cholecystectomy: No GI Surgery: (BACLOFEN IMPLANT) Lung Surgery: Yes (TRACH) Neurologic Surgery: No Orthopedic Surgery: No - Immunization History Immunization Up to Date: Yes - Suicide/Smoking/Psychosocial Hx Smoking Status: No Smoking History: Never smoked Have you smoked in the past 12 months: No Number of Cigarettes Smoked Daily: 0 Cigars Per Day: 0 Information on smoking cessation initiated: No Hx Alcohol Use: No Drug/Substance Use Hx: No Substance Use Type: None Hx Substance Use Treatment: No Review of Systems - Review of Systems Able to Perform ROS?: Yes Comments:: 08/24/18 13:10 General: denied fever, chills, generalized weakness. HEENT: denied sore throat, rhinorrhea, ear pain. Heart: denied chest pain, palpitations, syncope, diaphoresis. Respiratory: denied shortness of breath, cough, sputum production, hemoptysis. Abdomen: denied abdominal pain, nausea, vomiting, diarrhea, constipation, blood in stool. : denied dysuria, increased urinary frequency, hematuria, urinary incontinence , flank pain. Back: denied back pain. Musculoskeletal: denied joint pain, muscle pain, joint swelling. Neurological: denied headache, dizziness, numbness, tingling, weakness. Skin: denied rash, laceration, abrasion. *Physical Exam - Vital Signs Last Vital Signs Temp Pulse Resp BP Pulse Ox 97.6 F 70 16 122/65 97 08/24/18 10:55 08/24/18 10:55 08/24/18 10:55 08/24/18 10:55 08/24/18 10:55 - Physical Exam Comments: 08/24/18 13:11 Constitutional: Appearing stated age. wheelchair bound. in no acute distress. HEENT: head is normocephalic, atraumatic. EOMI. PERRLA. Neck: supple. Full ROM. trach. Heart: regular rhythm. no murmurs, rubs or gallops. Lungs: clear to auscultation bilaterally. no crackles, rhonchi or wheezing. no stridor. Abdomen: g-tube in place, no surrounding erythema or signs of infection. soft, nontender. normal bowel sounds. no rebound, guarding, masses. Extremities: peripheral pulses intact. no lower extremity edema. Neurological: CN 2-12 grossly intact. moves all four extremities. Psych: awake, alert, oriented x3. follows commands. answers questions appropriately. Medical Decision Making - Medical Decision Making 08/24/18 13:12 53 year old female with above PMH presented to ED for g-tube clogging since yesterday. Initial Vital Signs Temp Pulse Resp BP Pulse Ox 97.6 F 70 16 122/65 97 08/24/18 10:55 08/24/18 10:55 08/24/18 10:55 08/24/18 10:55 08/24/18 10:55 Afebrile. No tachycardia. No tachypnea. No hypotension. No hypoxia on room air. Labs ordered: none Imaging ordered: none Medications ordered: none Chart review: -G-tube placed 05/25/18 -08/22/[address] De Luna for biliary dilation on US with elevated ALP - recommended MRCP outpatient 08/24/18 14:00 G-tube replaced. Pending confirmation XR. 08/24/18 15:03 G-tube in place per Dr. Pantoja verbal report to Dr. Pimentel. Pt discharged. 08/25/18 08:50 Follow up: Official CXR report: Abdomen: Check NG tube placement A single view of the abdomen reveals contrast injected into G-tube which fills stomach bulb and sweep. The G tube balloon is in the gastric body. There is no sign of a leak. There is some retained contrast in the colon. There is a spinal stimulator. Correlation recommended. Findings discussed with ER physician. Reported By: Yariel Pantoja MD 08/24/18 1623 *DC/Admit/Observation/Transfer Diagnosis at time of Disposition: Gastrostomy tube obstruction - Discharge Dispostion Disposition: HOME Condition at time of disposition: Improved Decision to Admit order: No - Referrals Referrals: Anne Lopez MD [Primary Care Provider] - - Patient Instructions Additional Instructions: You were seen today for G-tube replacement. Follow up with your primary care doctor within 3 days. Your care is not complete until you follow up. Bring all paperwork given to you today to your appointment. Return to the Emergency Department for chest pain, shortness of breath, abdominal pain, vomiting, fever, increasing redness at the G-tube site, or any other new, worsening or concerning symptoms. - Post Discharge Activity Forms/Work/School Notes: Back to Work
--- NOTE | 2018-08-24 14:45 | PDOC ---
Documentation entered by Mely Poon SCRIBE, acting as scribe for Ryan Pimentel MD. Ryan Pimentel MD: This documentation has been prepared by the Cleve de jesus Nirvannie, SCRIBE, under my direction and personally reviewed by me in its entirety. I confirm that the documentation accurately reflects all work, treatment, procedures, and medical decision making performed by me. Attending Attestation - Resident Resident Name: CarleneYola - ED Attending Attestation I have performed the following: I have examined & evaluated the patient, The case was reviewed & discussed with the resident, I agree w/resident's findings & plan, Exceptions are as noted - HPI HPI: 08/24/18 13:41 The patient is a 53 year old female, with a significant past medical history of MS (s/p trach on vent), functional quadriplegia, HTN, HLD, who presents to the emergency department with a clogged G-tube since yesterday. Sister at bedside who was previously a nurse notes attempting to flush with water, shiloh dmitriy, and hydrogen peroxide with no improvement. Pt gets pills crushed through her tube. Pt had G tube placed here in May. She denies recent F/C, chest pain or shortness of breath, denies abd pain, N/V/D , focal weakness or numbness. Primary Care Physician: Dr. Anne Lopez Neurologist: Dr. Conroy = - Physicial Exam PE: 08/24/18 13:41 GENERAL: Awake, alert, and fully oriented, in no acute distress HEAD: No signs of trauma NECK: trach in place LUNGS: Breath sounds equal, clear to auscultation bilaterally. No wheezes, and no crackles HEART: Regular rate and rhythm, normal S1 and S2, no murmurs, rubs or gallops ABDOMEN: Soft, nontender, normoactive bowel sounds. LUQ G tube in place, 16F does not flush EXTREMITIES: Normal range of motion, no edema. No cords, erythema, or tenderness NEUROLOGICAL: Normal speech, cranial nerves intact SKIN: Warm, Dry, normal turgor, no rashes or lesions noted. - Medical Decision Making 08/24/18 14:26 53yo F presents to the ED with clogged G tube likely 2/2 pills being inadequately crushed Vitals wnl Pt well appearing, G tube does not flush Plan to replace G tube in ED G tube was placed by Dr. Avila from IR in May - was a 16F tube Tract mature by now Saline removed from balloon Tube removed w/o complication - hard material (likely inadequately crushed pills ) noted in tip of tube Using sterile lube, another 16F G-tube was advanced w/o resistance. 5cc of sterile NS used to inflate balloon AXR with gastrograffin ordered, read is pending 08/24/18 15:04 Tube with good placement on XR per Dr. Pantoja Pt clinically stable for DC home I discussed the physical exam findings, ancillary test results and final diagnoses with the patient. I answered all of the patient's questions. The patient was satisfied with the care received and felt comfortable with the discharge plan and treatment plan. The patient will call their primary care physician within 24 hours to arrange follow-up and will return to the Emergency Department with any new, persistent or worsening symptoms.
== END 2018-08-24 15:25 | disposition home or self-care (01) ==
LOC: JER 10:47
DX: Z46.59 Encounter for fitting and adjustment of other gastrointestinal appliance and device (principal); I10 Essential (primary) hypertension; R56.9 Unspecified convulsions; E03.9 Hypothyroidism, unspecified; G50.0 Trigeminal neuralgia; E87.1 Hypo-osmolality and hyponatremia; G35 Multiple sclerosis
CPT/HCPCS: 74019-TC-FY; 99281-25

== ENCOUNTER 2018-09-12 12:14 | Inpatient (IN) | payer OTHER ==
--- NOTE | 2018-09-12 13:25 | PDOC ---
History of Present Illness - General Chief Complaint: Shortness of Breath Stated Complaint: Shortness of Breath Time Seen by Provider: 09/12/18 12:46 History Source: Patient, Care Provider, Parent(s) Exam Limitations: Physical Impairment (trach / MS ) - History of Present Illness Initial Comments: 09/12/18 13:25 Source: Mother (Erinn, primary caregiver) and Patient (largely nonverbal, appropriately responsive to questions) HPI: Ms. Wood is a 53yo F with PMH significant for advanced MS (30 years), on trach collar with vent at night, 2L home O2, with G-tube, chronic hyponatremia, hypothyroidism, trigeminal neuralgia, recurrent UTI, wheelchair bound, presenting with 2 days of increasing amounts of secretions requiring frequent suctioning. Has not been requiring lasix at home. Sent urine via PCP over the weekend, reported negative - pt gets straight cathed, denies abdominal pain / fullness. Denies fever, chills, night sweats, chest pain, headache, wheezes, cough. Pt endorses throat pain over the weekend. PMH: see HPI PSH: per chart Meds: no interval changes, med rec per chart Allergies: - Reports allergy to adhesive, but not to tegaderm - Chloral hydrate - Azathioprine sodium Past History - Past Medical History Allergies/Adverse Reactions: Allergies Allergy/AdvReac Type Severity Reaction Status Date / Time chloral hydrate Allergy Intermediate Rash Verified 09/12/18 12:32 [Chloral Hydrate] azathioprine [From Imuran] Allergy Rash Verified 09/12/18 12:32 azathioprine sodium Allergy Rash Verified 09/12/18 12:32 [From Imuran] adhesive tape AdvReac Severe sensitivity Verified 09/12/18 12:32 to glue adhesive AdvReac Unknown Verified 09/12/18 12:32 Home Medications: Ambulatory Orders Melatonin 2 mg GT HS 05/03/18 Multivitamin [Multiple Vitamins] 1 each GT DAILY 05/03/18 Albuterol 2.5/Ipratropium 0.5 [Duoneb -] 1 amp NEB Q6H PRN #45 amp 05/28/18 Sodium Chloride Tablet - 1 gm GT DAILY #30 tablet 07/25/18 Carbamazepine [Tegretol -] 200 mg GT TIDCM tablet 08/22/18 Levothyroxine [Synthroid -] 100 mcg GT DAILY@0700 tablet 08/22/18 Amino Acids/Protein Hydrolys [Prosource No Carb Liquid Pkt] 30 ml PO DAILY@0800 09/12/18 Amlodipine Besylate [Norvasc -] 5 mg GT DAILY 09/12/18 Ascorbic Acid [Vitamin C -] 500 mg GT DAILY 09/12/18 Lactobacillus Acidophilus [Bacid -] 1 tab GT BID 09/12/18 Loratadine [Claritin -] 10 mg GT DAILY 09/12/18 Mirtazapine [Remeron -] 7.5 mg GT HS 09/12/18 Sertraline HCl [Zoloft -] 50 mg GT DAILY 09/12/18 hydrALAZINE HCL [Apresoline -] 50 mg GT TID 09/12/18 Anemia: Yes Asthma: No Cancer: No Cardiac Disorders: No CVA: No COPD: No (trach vent dependent at night only and prn oxygen mask) CHF: No DVT: No Dementia: No (M.S,TRIG.NEUROLAGIA) Diabetes: No GI Disorders: Yes Disorders: Yes (baclofen implant) HTN: Yes Hypercholesterolemia: No Liver Disease: No Seizures: Yes Thyroid Disease: No - Surgical History Abdominal Surgery: No Appendectomy: Yes (FEEDING TUBE) Cardiac Surgery: No Cholecystectomy: No GI Surgery: (BACLOFEN IMPLANT) Lung Surgery: Yes (TRACH) Neurologic Surgery: No Orthopedic Surgery: No - Immunization History Immunization Up to Date: Yes - Suicide/Smoking/Psychosocial Hx Smoking Status: No Smoking History: Current every day smoker Have you smoked in the past 12 months: No Number of Cigarettes Smoked Daily: 0 Cigars Per Day: 0 Information on smoking cessation initiated: No Hx Alcohol Use: No Drug/Substance Use Hx: No Substance Use Type: None Hx Substance Use Treatment: No Review of Systems - Review of Systems Able to Perform ROS?: Yes (Partially from mother) Constitutional: No: Chills, Diaphoresis, Fever, Night Sweats HEENTM: Yes: Throat Pain, Other (secretions). No: Throat Swelling, Mouth Swelling Respiratory: Yes: SOB with Exertion. No: Cough, Shortness of Breath, Stridor, Wheezing, Productive cough, Hemoptysis Cardiac (ROS): No: Chest Pain, Edema, Palpitations ABD/GI: No: Abdominal Distended, Abd. Pain w/ defecation : No: Burning, Dysuria, Discharge, Frequency Neurological: No: Headache Endocrine: No: Excessive Sweating, Flushing All Other Systems: Reviewed and Negative *Physical Exam - Vital Signs Last Vital Signs Temp Pulse Resp BP Pulse Ox 96.7 F L 69 16 128/54 L 100 09/12/18 12:47 09/12/18 12:15 09/12/18 12:15 09/12/18 12:15 09/12/18 12:15 - Physical Exam Comments: 09/12/18 13:38 Gen: Woman laying in bed, trach on suction, appears stated age HEENT: normal morphologies, tach collar in place, no surrounding erythema, swelling, or discharge CV: normal inspection, RRR Pulm: pt breathing comfortably, coarse breath sounds at the bilateral lung bases , no wheezes apparent Abd: soft, nontender, nondistended Ext: warm and well perfused, no clubbing / cyanosis / edema, legs with soft compartments, nontender Skin: warm, dry - three pressure ulcers not directly observed in the main, noted while pt was in fast track Neuro: alert, oriented, responsive appropriately given clinical status ( dysarthria 2/2 advanced MS) Pulses: 2+ DP and radial bilaterally ED Treatment Course - LABORATORY CBC & Chemistry Diagram: 09/15/18 09:20 09/14/18 17:00 Medical Decision Making - Medical Decision Making 09/12/18 13:28 53yo woman with PMH MS, trach on vent at night, G-tube, hypothyroidism, trigeminal neuralgia, chronic hyponatremia, pneumonia, recurrent UTI, on home O2 2L, wheelchair bound presented to ED for increased secretions for 2 days. History notable for concurrent sore throat, absence of cough, SOB, or any constitutional symptoms. Exam consistent with prior, coarse breath sounds at bilateral bases, no audible wheezing, no signs of fluid overload. Reassuring for normal vital signs, afebrile. DDX: most likely a viral syndrome, also consider UTI, metabolic derangements, pneumonia, and r/o ACS. - CBC, CMP - Cardiac profile, BNP, EKG - CXR - Respiratory therapist evaluation of trach - Will defer urine studies since sent by PCP recently, without interval change in symptoms. 09/12/18 13:48 Pt mother brought MD to bedside to demonstrate the secretions. Clear bubbly discharge exiting from the bottom of the trach. Respiratory called to bedside for evaluation of collar position. 09/12/18 13:55 Pt CBC with baseline anemia, no leukocytosis EKG without ischemic changes 09/12/18 14:51 CMP within normal limits, pending Na Na 116, baseline 130s - likely dilutional following a flush, will repeat Reassessed pt, not dizzy, confirmed no edema, euvolemic on exam Pt takes sodium tabs at home BID for chronic hyponatremia BNP 2284 c/w prior documented CHF 09/12/18 16:06 Repeat CMP with Na 116. Plan to admit for hyponatremia workup. Pt endorsed to ICU team. *DC/Admit/Observation/Transfer Diagnosis at time of Disposition: Hyponatremia - Discharge Dispostion Condition at time of disposition: Good Decision to Admit order: Yes - Referrals - Patient Instructions - Post Discharge Activity
[2018-09-12 13:57] LABS: BASO % 0.1 % (0-2.0); EOS % 2.5 % (0-4.5); HEMATOCRIT 26.1 % (32.4-45.2); HEMOGLOBIN 8.7 GM/dL (10.7-15.3); LYMPH % 11.5 % (8-40); MCH 31.2 pg (25.7-33.7); MCHC 33.5 g/dl (32.0-36.0); MEAN CELL VOLUME 93.1 fl (80-96); MONO % 6.4 % (3.8-10.2); NEUT % 79.5 % (42.8-82.8); RDW 16.2 % (11.6-15.6); WHITE BLOOD COUNT 7.8 K/mm3 (4.0-10.0)
--- NOTE | 2018-09-12 14:00 | PDOC ---
Documentation entered by Carol Antoine SCRIBE, acting as scribe for Miguel Lewis MD. Miguel Lewis MD: This documentation has been prepared by the scribe, Carol Antoine SCRIBE, under my direction and personally reviewed by me in its entirety. I confirm that the documentation accurately reflects all work, treatment, procedures, and medical decision making performed by me. Attending Attestation - Resident Resident Name: Pawan Garcia - ED Attending Attestation I have performed the following: I have examined & evaluated the patient, The case was reviewed & discussed with the resident, I agree w/resident's findings & plan, Exceptions are as noted - HPI HPI: 09/12/18 13:42 The patient is a 53-year-old female, with a past medical history of MS s/p trach ( on vent QHS), functional quadriplegia, HTN, HLD, who presents to the ED with 1 day of increased oral and tracheal secretions. The patient denies any shortness of breath and has not needed increased duoneb treatments. She reports that the home respiratory team has been suctioning her more often. The patient denies any fevers, chills, cough, hemoptysis, nausea, vomiting, diarrhea leg swelling, cp, palpitations or abdominal pain. . Allergies: Chloral hydrate, azathioprine, azathioprine sodium. Social History: Denies any tobacco, alcohol, or drug use. PCP: Dr. Lopez - Physicial Exam PE: 09/12/18 13:53 GENERAL: The patient is awake, alert,Nontoxic - in no acute distress. HEAD: Normocephalic, atraumatic. EYES: extraocular movements intact, sclera anicteric, conjunctiva clear. ENT: Normal voice, Moist mucous membranes, trach in place without surrounding erythema,or obvious discharge NECK: Normal range of motion, supple LUNGS: scattered rhonchi bilaterally, no acute respiratory distress HEART: Regular rate and rhythm, normal S1 and S2 without murmur, rub or gallop. ABDOMEN: Soft, distended, nontender EXTREMITIES: Normal range of motion, trace edema. NEUROLOGICAL: No facial assymetry, faint voice, PSYCH: Normal mood, normal affect. SKIN: Warm, Dry, normal turgor, - Medical Decision Making 09/12/18 13:54 will r/o pna no signs of tracheitus/clinical pna dara cxr will reasess Heart Score/ECG Review - ECG Impressions Comment:: 09/12/18 13:55 Twelve-lead EKG was performed and reviewed by me. There is normal sinus rhythm with a normal rate. rate of 64 The axis is normal. The intervals are normal. There is normal R wave progression nonspecific STabnormality
[2018-09-12 14:02] LABS: PLATELET COUNT 127 K/MM3 (134-434)
[2018-09-12 14:45] LABS: CREATININE 0.3 mg/dL (0.55-1.3); GLUCOSE,RANDOM 82 mg/dL (74-106)
[2018-09-12 14:46] LABS: ANION GAP 6 MMOL/L (8-16); BILIRUBIN,TOTAL 0.2 mg/dL (0.2-1); CALCIUM 8.1 mg/dL (8.5-10.1); CHLORIDE 81 mmol/L (98-107); CO2 29 mmol/L (21-32); POTASSIUM 4.4 mmol/L (3.5-5.1); TOT PROT 7.4 g/dl (6.4-8.2)
[2018-09-12 14:47] LABS: ALK PHOS 265 U/L (45-117); SGOT/AST 24 U/L (15-37); SGPT/ALT 41 U/L (13-61)
[2018-09-12 14:52] LABS: SODIUM 116 mmol/L (136-145)
[2018-09-12 14:54] LABS: ALBUMIN 2.3 g/dl (3.4-5.0); N-TERMINAL BNP 2284.3 pg/ml (5-125)
[2018-09-12 16:03] LABS: ALBUMIN 2.2 g/dl (3.4-5.0); BILIRUBIN,TOTAL 0.1 mg/dL (0.2-1); BLOOD UREA NITROGEN 15.7 mg/dL (7-18); CALCIUM 8.2 mg/dL (8.5-10.1); CREATININE 0.2 mg/dL (0.55-1.3); POTASSIUM 4.4 mmol/L (3.5-5.1); TOT PROT 7.2 g/dl (6.4-8.2)
[2018-09-12] MEDS ORDERED: SODIUM CHLORIDE 1,000 ML IV STA (16:56)
[2018-09-12 18:18] LABS: EPI CELLS 29.1 /HPF (0-5/HPF); HYALINE CASTS 75 /lpf (0-8); URINE APPEARANCE TURBID; URINE BACTERIA 758.3 /hpf (NEGATIVE); URINE BILIRUBIN NEGATIVE (NEGATIVE); URINE COLOR YELLOW; URINE GLUCOSE (UA) NEGATIVE (NEGATIVE); URINE KETONE NEGATIVE (NEGATIVE); URINE LEUK ESTERASE 3+ (NEGATIVE); URINE NITRITE NEGATIVE (NEGATIVE); URINE PROTEIN 2+ (NEGATIVE); URINE UROBILINOGEN 0.2 mg/dL (0.2-1.0); URINE WBC 2944 /hpf (0-5)
[2018-09-12] MEDS ORDERED: SODIUM CHLORIDE 1,000 ML IV SCH (18:30)
--- NOTE | 2018-09-12 18:56 | CONSULT ---
Consult - text type - Consultation Consultation Note: Renal consult for hyponatremia This is a 53 year old woman with history of multiple sclerosis, respiratory failure on trach, hx of SIADH, neurogenic bladder who presented from home with increased respiratory secretions and found to have hyponatremia with Na of 116. Pt is awake and alert. Accompanied by mother who is her wheel alignment mechanic. Denies any lethargy, confusion or seizures. Has been on tube feeds and free water with feeds. Has had to add more water recently with feeds. On salt tabs 1g BID. No diarrhea, N/V. No fevers or chills. PMHx: as above Allergies: NKDA Family Hx: NC Social Hx: No T/A/D ROS: As per HPI, all other pertinent ros negative Home Medications Medication Instructions Recorded Melatonin 2 mg GT HS 05/03/18 Multivitamin [Multiple Vitamins] 1 each GT DAILY 05/03/18 Albuterol 2.5/Ipratropium 0.5 1 amp NEB Q6H PRN #45 amp 05/28/18 [Duoneb -] Sodium Chloride Tablet - 1 gm GT DAILY #30 tablet 07/25/18 Carbamazepine [Tegretol -] 200 mg GT TIDCM tablet 08/22/18 Levothyroxine [Synthroid -] 100 mcg GT DAILY@0700 tablet 08/22/18 Amino Acids/Protein Hydrolys 30 ml PO DAILY@0800 09/12/18 [Prosource No Carb Liquid Pkt] Amlodipine Besylate [Norvasc -] 5 mg GT DAILY 09/12/18 Ascorbic Acid [Vitamin C -] 500 mg GT DAILY 09/12/18 Lactobacillus Acidophilus [Bacid -] 1 tab GT BID 09/12/18 Loratadine [Claritin -] 10 mg GT DAILY 09/12/18 Mirtazapine [Remeron -] 7.5 mg GT HS 09/12/18 Sertraline HCl [Zoloft -] 50 mg GT DAILY 09/12/18 hydrALAZINE HCL [Apresoline -] 50 mg GT TID 09/12/18 Vital Signs Temperature 96.7 F L 09/12/18 12:47 Pulse Rate 68 09/12/18 17:18 Respiratory Rate 17 09/12/18 17:18 Blood Pressure 134/69 09/12/18 17:18 O2 Sat by Pulse Oximetry (%) 99 09/12/18 18:20 NAD awake and alert MMM, neck supple on trach collar RRR, no M/R CTA, no rales or wheeze soft NT/ND no LE or sacral edema CBC, BMP 09/12/18 13:40 09/12/18 15:24 Current Medications Chlorhexidine Gluconate (Hibiclens For Decolonization -) 1 applic TP HS CATHERINE Heparin Sodium (Porcine) (Heparin -) 5,000 unit SQ BID CATHERINE Sodium Chloride (Normal Saline -) 1,000 mls @ 150 mls/hr IV ASDIR CATHERINE Last Admin: 09/12/18 18:35 Dose: 150 mls/hr Mupirocin (Bactroban Ointment (For Decolonization) -) 1 applic NS BID CATHERINE Stop: 09/17/18 21:59 53 year old woman with history of multiple sclerosis, respiratory failure on trach, hx of SIADH, neurogenic bladder who presented from home with increased respiratory secretions and found to have hyponatremia with Na of 116. #Hyponatremia secondary to SIADH vs. intravascular volume depletion-less likely #Increased respiratory secretions #Anemia #Multiple sclerosis #Chronic respiratory failure with trach Repeat serum Na once pt comes up to the ICU, if Na is unchanged or worse would d /c normal saline no emergent indication for 3% saline as pt is w/o acute mental status change however if serum Na downtrends would start hypertonic saline check urine for Na, and OSM Check serum uric acid, low in SIADH and high in volume depletion ICU monitoring Check Na Q6h for first 12-24 hours check sputum cultures, urine cultures vent support at night case discussed with the ICU
--- NOTE | 2018-09-12 19:11 | CONSULT ---
Consultation: REQUESTING PROVIDER: Dr. Anne Lopez CONSULT REQUEST: We have been asked to medically evaluate this patient for hyponatremia. HISTORY OF PRESENT ILLNESS: Ms. Geetha Wood is a 53 year old female with a past medical history of MS, functional quadreipelgia, HTN, HLD, trigeminal neuralgia, neurogenic bladder, anemia, hypothyroidism who presented to the ED with her mother after having an increased amount of secretions from her trach site over the weekend. According to the mother, the patient had been having increased secretions from the trach site 3 days prior that were brown in color and malodorous. The patient was more tired and weak than her usual self. Over the weekend, the patient had poor sleep , needed increased suctioning, had a sore throat, and had dripping from the nose. Recently, the patient's tube feeds required additional free water. On day of admission, the family contacted Dr. Lopez to show up to the office and were recommended to go to the ED. In the ED, the patient was found to have hyponatremia at 116. The patient denied chest pain, sob, n/v, abd pain, visual changes, hearing changes, dizziness, lightheadedness, diarrhea. No seizure activity was noted by the family. The patient noted that she was constipated and had not moved her bowels in 3 days. Otherwise, did have some anxiety but was joking around during interview and following all commands appropriately. Of note, the patient had a UA done at Dr. Lopez's office 4 days ago, that according to the family was within normal limits. CXR done in ED showed increased markings in the R hemithorax which are consistent with infiltrate and possible atelectasis. ED course notable for: 1) Hyponatremia 116 2) BNP 2284 3) CXR increased marking in the R hemithorax consistent with infiltrate and possible atelectasis REVIEW OF SYSTEMS: CONSTITUTIONAL: generalized weakness Absent: fever, chills, diaphoresis, , malaise, loss of appetite, weight change HEENT: sore throat, increased trach secretions Absent: rhinorrhea, nasal congestion, throat swelling, difficulty swallowing, mouth swelling, ear pain, eye pain, visual changes CARDIOVASCULAR: Absent: chest pain, syncope, palpitations, irregular heart rate, lightheadedness , peripheral edema RESPIRATORY: Absent: cough, shortness of breath, dyspnea with exertion, orthopnea, wheezing, stridor, hemoptysis GASTROINTESTINAL: constipation Absent: abdominal pain, abdominal distension, nausea, vomiting, diarrhea, melena, hematochezia GENITOURINARY: Absent: dysuria, frequency, urgency, hesitancy, hematuria, flank pain, genital pain MUSCULOSKELETAL: Absent: myalgia, arthralgia, joint swelling, back pain, neck pain SKIN: Absent: rash, itching, pallor HEMATOLOGIC/IMMUNOLOGIC: Absent: easy bleeding, easy bruising, lymphadenopathy, frequent infections ENDOCRINE: Absent: unexplained weight gain, unexplained weight loss, heat intolerance, cold intolerance NEUROLOGIC: Absent: headache, focal weakness or paresthesias, dizziness, unsteady gait, seizure, mental status changes, bladder or bowel incontinence PSYCHIATRIC: Absent: anxiety, depression, suicidal or homicidal ideation, hallucinations. PHYSICAL EXAMINATION Vital Signs - 24 hr 09/12/18 09/12/18 09/12/18 12:15 12:47 15:21 Temperature 97.4 F L 96.7 F L Pulse Rate 69 98 H Pulse Rate [ Apical] Respiratory 16 Rate Blood Pressure 128/54 L Blood Pressure [Left Arm] O2 Sat by Pulse 100 100 Oximetry (%) 09/12/18 09/12/18 09/12/18 17:17 17:18 18:20 Temperature Pulse Rate 68 Pulse Rate [ 68 Apical] Respiratory 17 Rate Blood Pressure Blood Pressure 134/69 [Left Arm] O2 Sat by Pulse 98 98 99 Oximetry (%) GENERAL: Awake, alert, and fully oriented, in no acute distress. HEAD: Normal with no signs of trauma. EYES: Pupils equal, round and reactive to light, extraocular movements intact, sclera anicteric, conjunctiva clear. No lid lag. EARS, NOSE, THROAT: nares patent, oropharynx clear without exudates. Moist mucous membranes. Trach site is intact with no visible erythema or discharge NECK: Decreased range of motion secondary to MS. supple without lymphadenopathy , JVD, or masses. LUNGS: Breath sounds equal, Coarse breath sounds throughout. No wheezes, and no crackles. No accessory muscle use. HEART: Regular rate and rhythm, normal S1 and S2 without murmur, rub or gallop. ABDOMEN: Soft, nontender, not distended, normoactive bowel sounds, no guarding, no rebound, no masses. No hepatomegaly or splenomegaly. 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 UPPER EXTREMITIES: 2+ pulses, warm, well-perfused. No cyanosis. No clubbing. Cap refill <2 seconds. No peripheral edema. LOWER EXTREMITIES: 2+ pulses, warm, well-perfused. No calf tenderness. No peripheral edema. NEUROLOGICAL: Cranial nerves II-XII intact. Speech diminished secondary to trach site. 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 PSYCHIATRIC: Cooperative. Good eye contact. Mildly anxious mood and affect. SKIN: Warm, dry, normal turgor, no rashes or lesions noted. Laboratory Results - last 24 hr 09/12/18 09/12/18 09/12/18 13:40 13:40 15:24 WBC 7.8 RBC 2.80 L Hgb 8.7 L Hct 26.1 L MCV 93.1 MCH 31.2 MCHC 33.5 RDW 16.2 H Plt Count 127 L D MPV 9.0 Absolute Neuts (auto) 6.2 Neutrophils % 79.5 Lymphocytes % 11.5 Monocytes % 6.4 Eosinophils % 2.5 Basophils % 0.1 Nucleated RBC % 0 Sodium 116 L* 116 L* Potassium 4.4 4.4 Chloride 81 L 80 L Carbon Dioxide 29 30 Anion Gap 6 L 6 L BUN 16.0 15.7 Creatinine 0.3 L 0.2 L Est GFR (CKD-EPI)AfAm 150.44 171.91 Est GFR (CKD-EPI)NonAf 129.80 148.33 Random Glucose 82 81 Calcium 8.1 L 8.2 L Total Bilirubin 0.2 0.1 L AST 24 25 ALT 41 38 Alkaline Phosphatase 265 H 251 H Creatine Kinase 82 Troponin I < 0.02 B-Natriuretic Peptide 2284.3 H Total Protein 7.4 7.2 Albumin 2.3 L 2.2 L Urine Color Urine Appearance Urine pH Ur Specific [place] Urine Protein Urine Glucose (UA) Urine Ketones Urine Blood Urine Nitrite Urine Bilirubin Urine Urobilinogen Ur Leukocyte Esterase Urine WBC (Auto) Urine Casts (Auto) U Pathogenic Cast Auto U Epithel Cells (Auto) Urine Bacteria (Auto) Ur Sodium 24 Hour 09/12/18 09/12/18 16:16 17:17 WBC RBC Hgb Hct MCV MCH MCHC RDW Plt Count MPV Absolute Neuts (auto) Neutrophils % Lymphocytes % Monocytes % Eosinophils % Basophils % Nucleated RBC % Sodium Potassium Chloride Carbon Dioxide Anion Gap BUN Creatinine Est GFR (CKD-EPI)AfAm Est GFR (CKD-EPI)NonAf Random Glucose Calcium Total Bilirubin AST ALT Alkaline Phosphatase Creatine Kinase Troponin I B-Natriuretic Peptide Total Protein Albumin Urine Color Yellow Urine Appearance Turbid Urine pH 7.0 Ur Specific [place] 1.016 Urine Protein 2+ H Urine Glucose (UA) Negative Urine Ketones Negative Urine Blood 2+ H Urine Nitrite Negative Urine Bilirubin Negative Urine Urobilinogen 0.2 Ur Leukocyte Esterase 3+ H Urine WBC (Auto) 2944 Urine Casts (Auto) 75 U Pathogenic Cast Auto None seen U Epithel Cells (Auto) 29.1 Urine Bacteria (Auto) 758.3 Ur Sodium 24 Hour Cancelled Active Medications Generic Name Dose Route Start Last Admin Trade Name Freq PRN Reason Stop Dose Admin Albuterol/Ipratropium 1 amp 09/12/18 18:48 Duoneb - NEB Q6H PRN SHORT OF BREATH/WHEEZING Amino Acids 30 ml 09/13/18 08:00 Prosource No Carb Liquid Pkt GT DAILY@0800 [facility] Amlodipine Besylate 5 mg 09/13/18 10:00 Norvasc - GT DAILY [facility] Ascorbic Acid 500 mg 09/13/18 10:00 Vitamin C - GT DAILY [facility] Carbamazepine 200 mg 09/13/18 08:00 Tegretol - GT TIDCM [facility] Chlorhexidine Gluconate 1 applic 09/12/18 22:00 Hibiclens For Decolonization - TP HS [facility] Heparin Sodium (Porcine) 5,000 unit 09/12/18 22:00 Heparin - SQ BID [facility] Hydralazine HCl 50 mg 09/12/18 22:00 Apresoline - GT TID [facility] Lactobacillus Acidophilus 1 tab 09/12/18 22:00 Bacid - GT BID [facility] Levothyroxine Sodium 100 mcg 09/13/18 07:00 Synthroid - GT DAILY@0700 CATH[facility] Loratadine 10 mg 09/13/18 10:00 Claritin - GT DAILY [facility] Mirtazapine 7.5 mg 09/12/18 22:00 Remeron - GT HS [facility] Mupirocin 1 applic 09/12/18 22:00 Bactroban Ointment (For Decolonization) - NS 09/17/18 21:59 BID [facility] Sertraline HCl 50 mg 09/13/18 10:00 Zoloft - GT DAILY [facility] Sodium Chloride 1 gm 09/12/18 22:00 Sodium Chloride Tablet - GT BID [facility] ASSESSMENT/PLAN: Geetha Wood is a 53 year old female with a past medical history of MS, functional quadreipelgia, HTN, HLD, trigeminal neuralgia, neurogenic bladder, anemia, hypothyroidism who is admitted to the ICU with hyponatremia for continued monitoring of neurologic status. Hyponatremia Multiple Sclerosis HTN HLD Neurogenic bladder Trigeminal neuralgia UTI NEUROLOGIC - stable - patient is alert and awake and following commands - neurochecks q2h - continue home carbamazepine 200mg tid for trigeminal neuralgia, reassess as medication may cause SIADH CARDIOLOGY - continue home amlodipine 5mg daily - continue home hydralazine 50mg tid - low BP overnight - if necessary can use 250cc bolus to maintain pressure RESPIRATORY - monitor trach site for increased secretions - oxygen therapy through trach collar - Duoneb q6h prn RENAL - patient with a history of hyponatremia secondary to volume depletion and SIADH - Na 116 repeated and again 116 - repeat sodium at 119, improving - receiving NS with fluid restriction of 500mL - received 400cc of NS in the ED - continue with home sodium chloride tabs - if sodium downtrends, start hypertonic saline - BNP checks q6h for sodium correction - goal to not correct sodium greater than 12mmol/day - avoid rapid corrections especially in setting of demyelinating disorder MS - serum osmolarity low, true hyponatremia - Urine sodium high 67, urine osms 465>100, likely SIADH as patient not on diuretics - serum uric acid 1.2, low, indicating likely SIADH - patient on carbamazepine and sertraline, both hyponatremia inducing medications, will evaluate the need for and dosing of medications and relationship to hyponatremia. Previous note by Dr. Conroy noted to continue carbamazepine in the setting of chronic hyponatremia - alternatively, pt albumin low, CRE low, may be low solute intake causing hyponatremia in addition to recent increase by family using free water in tube feeds. restarting tube feeds, using NS flushes instead of water. Enteral feeds will prevent over correction of sodium - if necessary to maintain BP, can give 250cc bolus of NS GASTROINTESTINAL - stable GENITOURINARY - stable INFECTIOUS DISEASE - urine culture ordered - sputum culture ordered - blood culture ordered, unable to obtain cultures prior to initiating antibiotics due to poor venous access - UA showed 3+ LE, neg nitrites, 2944 WBC - UA done at PCP office last week negative for infection as per family - patient asymptomatic, no AMS, WBC - patient with hypothermia (95) and low BP overnight (81/45) - previous admissions with infectious UA had hypothermia at 92.7 - one time dose of Zosyn given - ID consulted - holding fluids due to avoiding rapid overcorrection of sodium ENDOCRINE - continue home Synthroid - TSH level ordered to assess for alternative cause of hyponatremia HEMATOLOGY - stable MUSCULOSKELETAL - patient with implanted baclofen pump for spasticity PSYCHIATRY - continue home remeron - continue home sertraline, reassess as medication may cause SIADH F/E/N - fluid restriction of 500cc per day pending next sodium level - hyponatremia correcting with fluids and sodium chloride tablet - tube feeds 30ml/hr with 30ml NS flushes - dietary consult placed to discuss proper tube feeding and water flushes LINES - R wrist 22 inserted 09/12 - R hand 22 inserted 09/13 PROPHYLAXIS - heparin 5000 mg bid CODE - full code DISPO - continue to monitor in ICU We will continue to follow the patient. Thank you for this consultative opportunity. CASE DISCUSSED WITH DR. GOLDMAN AND PRIMARY TEAM JACOB ALEGRIA DO - PGY-1 INTERNAL MEDICINE Problem List - Problems (1) Functional quadriplegia Code(s): R53.2 - FUNCTIONAL QUADRIPLEGIA (2) HTN (hypertension) Code(s): I10 - ESSENTIAL (PRIMARY) HYPERTENSION (3) Hyponatremia Code(s): E87.1 - HYPO-OSMOLALITY AND HYPONATREMIA (4) Hypothyroid Code(s): E03.9 - HYPOTHYROIDISM, UNSPECIFIED Visit type - Emergency Visit Emergency Visit: No - New Patient This patient is new to me today: Yes Date on this admission: 09/13/18 - Critical Care Critical Care patient: Yes Total Critical Care Time (in minutes): 40 Critical Care Statement: The care of this patient involved high complexity decision making to prevent further life threatening deterioration of the patient 's condition and/or to evaluate & treat vital organ system(s) failure or risk of failure.
[2018-09-12] MEDS ORDERED: PIPERACILLIN/TAZOB 4.5 GM 4.5 GM in DEXTROSE 5%-WATER 100 ML IVPB ONE (20:29)
[2018-09-12] MEDS ORDERED: carBAMazepine 200 MG TABLET PO ONE (20:36)
[2018-09-12 21:33] LABS: BLOOD UREA NITROGEN 13.3 mg/dL (7-18); CREATININE 0.3 mg/dL (0.55-1.3); POTASSIUM 4.2 mmol/L (3.5-5.1); URIC ACID 1.2 mg/dL (2.6-7.2)
[2018-09-12] MEDS: ALBUTEROL SO4 2.5/IPRATROPIUM 0.5 INH SOL 3 ML VIAL.NEB. NEB PRN (22:01)
[2018-09-12] MEDS: MUPIROCIN 2% TOPICAL OINTMENT FOR DECOLONIZATION NS SCH (22:26)
[2018-09-12] MEDS: HEPARIN NA (PORCINE) 5,000 UNITS/ML 1ML VIAL SQ SCH (22:27)
[2018-09-12] MEDS: hydrALAZINE HCL 50 MG TABLET (FP) GT SCH (22:27)
[2018-09-12] MEDS: MIRTAZAPINE 15 MG TABLET (FP) GT SCH (22:28)
[2018-09-12] MEDS: LACTOBACILLUS ACIDOPHILUS 1 TABLET GT SCH (22:28)
[2018-09-12] MEDS: clonazePAM 0.5 MG TABLET GT SCH (22:28)
[2018-09-12] MEDS: SODIUM CHLORIDE 1 GM TABLET GT SCH (22:28)
[2018-09-12 23:41] LABS: EPI CELLS 12.9 /HPF (0-5/HPF); HYALINE CASTS 3 /lpf (0-8); URINE APPEARANCE TURBID; URINE BACTERIA 1303.4 /hpf (NEGATIVE); URINE BILIRUBIN NEGATIVE (NEGATIVE); URINE COLOR YELLOW; URINE GLUCOSE (UA) 1+ (NEGATIVE); URINE KETONE NEGATIVE (NEGATIVE); URINE LEUK ESTERASE 3+ (NEGATIVE); URINE NITRITE NEGATIVE (NEGATIVE); URINE PROTEIN 2+ (NEGATIVE); URINE UROBILINOGEN 0.2 mg/dL (0.2-1.0); URINE WBC 886 /hpf (0-5)
[2018-09-13 00:22] LABS: URINE RBC 18.4 /hpf (0-4)
[2018-09-13] MEDS ORDERED: PIPERACILLIN/TAZOB 4.5 GM 4.5 GM in DEXTROSE 5%-WATER 100 ML IVPB ONE (00:59)
[2018-09-13] MEDS ORDERED: PIPERACILLIN/TAZOBACTAM 4.5 GM VIAL IVPB ONE (01:17)
[2018-09-13] MEDS ORDERED: DEXTROSE 5%-WATER 100 ML IVPB ONE (01:18)
[2018-09-13 02:14] LABS: BLOOD UREA NITROGEN 15.1 mg/dL (7-18); CALCIUM 7.7 mg/dL (8.5-10.1); CREATININE 0.3 mg/dL (0.55-1.3); POTASSIUM 4.1 mmol/L (3.5-5.1)
[2018-09-13] MEDS: CHLORHEXIDINE GLUCONATE 4% CLEANSER FOR DECOLONIZATION TP SCH ×2 (02:21→23:33)
[2018-09-13 02:24] LABS: HEMATOCRIT 21.6 % (32.4-45.2); HEMOGLOBIN 7.5 GM/dL (10.7-15.3); MCH 31.9 pg (25.7-33.7); MCHC 34.7 g/dl (32.0-36.0); RBC 2.35 M/mm3 (3.60-5.2); RDW 16.1 % (11.6-15.6)
[2018-09-13 03:25] LABS: MEAN PLT VOLUME 9.7 fl (7.5-11.1); PLATELET COUNT 102 K/MM3 (134-434); WHITE BLOOD COUNT 4.3 K/mm3 (4.0-10.0)
[2018-09-13 03:30] LABS: PLATELET ESTIMATE SLT DECREASE
[2018-09-13] MEDS: hydrALAZINE HCL 50 MG TABLET (FP) GT SCH ×3 (06:13→22:28)
[2018-09-13] MEDS ORDERED: PT OWN MED DRAWER 7, Y5N ONE ×5 (06:16→17:37)
[2018-09-13 06:46] LABS: HEMATOCRIT 22.8 % (32.4-45.2); HEMOGLOBIN 7.7 GM/dL (10.7-15.3); MCH 31.6 pg (25.7-33.7); MCHC 33.9 g/dl (32.0-36.0); MEAN CELL VOLUME 93.1 fl (80-96); PLATELET COUNT 100 K/MM3 (134-434); RBC 2.45 M/mm3 (3.60-5.2); RDW 16.1 % (11.6-15.6); WHITE BLOOD COUNT 3.2 K/mm3 (4.0-10.0)
[2018-09-13] MEDS ORDERED: LEVOTHYROXINE NA 50 MCG TABLET (FP) GT SCH ×3 (07:00→18:58)
[2018-09-13] MEDS ORDERED: LEVOTHYROXINE NA 100 MCG TABLET (FP) GT SCH (07:00)
[2018-09-13 07:01] LABS: INR 1.05 (0.83-1.09); PROTHROMBIN TIME (PATIENT) 12.4 SEC (9.7-13.0)
[2018-09-13 07:04] LABS: ACTIVATED PTT 34.9 SECONDS (25.2-36.5)
[2018-09-13 07:30] LABS: BILIRUBIN,TOTAL 0.2 mg/dL (0.2-1); BLOOD UREA NITROGEN 16.2 mg/dL (7-18); CALCIUM 7.7 mg/dL (8.5-10.1); CREATININE 0.3 mg/dL (0.55-1.3); MAGNESIUM 1.5 mg/dL (1.8-2.4); PHOSPHOROUS 3.3 mg/dL (2.5-4.9); POTASSIUM 4.3 mmol/L (3.5-5.1); TOT PROT 6.6 g/dl (6.4-8.2)
--- NOTE | 2018-09-13 08:06 | PN ---
Physical Exam: SUBJECTIVE: Briefly, 53yo F with h/o MS, Trach collar, suspected SIADH, Hypothyroidism, HTN, HLD, who presented last night from home due to increased respiratory secretions from trach site. Pt was found to be hyponatremic to 116 on routine workup and was admitted to the ICU. At baseline pt has limited functional status due to her MS, however uses her Paucy Skyler valve during the day to communicate. Pt has previous history of suspected SIADH which has been controlled with fluid restriction and salt tablets. Pt is comfortable and is mentating per baseline as per family at bedside. OBJECTIVE: Vital Signs Period Temp Pulse Resp BP Sys/Morillo Pulse Ox Last 24 Hr 95 F-98 F 57-98 12-17 62-153/35-81 98-100 GENERAL:NAD, awake, alert, able to mouth words given trach, responds appropriately HEENT: NC/AT, EOMI, SHIRIN, sclera anicteric, no conjunctival pallor, moist mucosa NECK: Pt being placed to trach collar with noted secretions in collection, no JVD LUNGS: Scattered rhonchi bilaterally, no wheezes, no crackles, on 31% trach mask HEART: RRR, S1, S2 without murmur ABDOMEN: Soft, NT/ND, normoactive bowel sounds, no guarding, no hepatojugular reflux. EXTREMITIES: 1+ distal pulses, no pitting edema. PSYCH: Normal mood, normal affect. SKIN: Warm, dry, no rashes or lesions noted Laboratory Results - last 24 hr 09/12/18 09/12/18 09/12/18 13:40 13:40 15:24 WBC 7.8 RBC 2.80 L Hgb 8.7 L Hct 26.1 L MCV 93.1 MCH 31.2 MCHC 33.5 RDW 16.2 H Plt Count 127 L D MPV 9.0 Absolute Neuts (auto) 6.2 Total Counted Neutrophils % 79.5 Neutrophils % (Manual) Lymphocytes % 11.5 Lymphocytes % (Manual) Monocytes % 6.4 Monocytes % (Manual) Eosinophils % 2.5 Eosinophils % (Manual) Basophils % 0.1 Nucleated RBC % 0 Metamyelocytes Platelet Estimate Platelet Comment PT with INR INR PTT (Actin FS) Sodium 116 L* 116 L* Potassium 4.4 4.4 Chloride 81 L 80 L Carbon Dioxide 29 30 Anion Gap 6 L 6 L BUN 16.0 15.7 Creatinine 0.3 L 0.2 L Est GFR (CKD-EPI)AfAm 150.44 171.91 Est GFR (CKD-EPI)NonAf 129.80 148.33 Random Glucose 82 81 Serum Osmolality Lactic Acid Uric Acid Calcium 8.1 L 8.2 L Phosphorus Magnesium Total Bilirubin 0.2 0.1 L AST 24 25 ALT 41 38 Alkaline Phosphatase 265 H 251 H Creatine Kinase 82 Troponin I < 0.02 B-Natriuretic Peptide 2284.3 H Total Protein 7.4 7.2 Albumin 2.3 L 2.2 L TSH Free T4 Urine Color Urine Appearance Urine pH Ur Specific Tilden Urine Protein Urine Glucose (UA) Urine Ketones Urine Blood Urine Nitrite Urine Bilirubin Urine Urobilinogen Ur Leukocyte Esterase Urine WBC (Auto) Urine RBC (Auto) Urine Casts (Auto) U Pathogenic Cast Auto U Epithel Cells (Auto) Urine Bacteria (Auto) Urine Osmolality Ur Random Sodium Ur Sodium 24 Hour 09/12/18 09/12/18 09/12/18 16:16 17:17 17:17 WBC RBC Hgb Hct MCV MCH MCHC RDW Plt Count MPV Absolute Neuts (auto) Total Counted Neutrophils % Neutrophils % (Manual) Lymphocytes % Lymphocytes % (Manual) Monocytes % Monocytes % (Manual) Eosinophils % Eosinophils % (Manual) Basophils % Nucleated RBC % Metamyelocytes Platelet Estimate Platelet Comment PT with INR INR PTT (Actin FS) Sodium Potassium Chloride Carbon Dioxide Anion Gap BUN Creatinine Est GFR (CKD-EPI)AfAm Est GFR (CKD-EPI)NonAf Random Glucose Serum Osmolality 242 L Lactic Acid Uric Acid Calcium Phosphorus Magnesium Total Bilirubin AST ALT Alkaline Phosphatase Creatine Kinase Troponin I B-Natriuretic Peptide Total Protein Albumin TSH Free T4 Urine Color Yellow Urine Appearance Turbid Urine pH 7.0 Ur Specific Tilden 1.016 Urine Protein 2+ H Urine Glucose (UA) Negative Urine Ketones Negative Urine Blood 2+ H Urine Nitrite Negative Urine Bilirubin Negative Urine Urobilinogen 0.2 Ur Leukocyte Esterase 3+ H Urine WBC (Auto) 2944 Urine RBC (Auto) Urine Casts (Auto) 75 U Pathogenic Cast Auto None seen U Epithel Cells (Auto) 29.1 Urine Bacteria (Auto) 758.3 Urine Osmolality 488 Ur Random Sodium Ur Sodium 24 Hour Cancelled 09/12/18 09/12/18 09/12/18 20:30 21:30 21:30 WBC RBC Hgb Hct MCV MCH MCHC RDW Plt Count MPV Absolute Neuts (auto) Total Counted Neutrophils % Neutrophils % (Manual) Lymphocytes % Lymphocytes % (Manual) Monocytes % Monocytes % (Manual) Eosinophils % Eosinophils % (Manual) Basophils % Nucleated RBC % Metamyelocytes Platelet Estimate Platelet Comment PT with INR INR PTT (Actin FS) Sodium 119 L Potassium 4.2 Chloride 82 L Carbon Dioxide 32 Anion Gap 5 L BUN 13.3 Creatinine 0.3 L Est GFR (CKD-EPI)AfAm 150.44 Est GFR (CKD-EPI)NonAf 129.80 Random Glucose 72 L Serum Osmolality Lactic Acid Uric Acid 1.2 L Calcium 8.0 L Phosphorus Magnesium Total Bilirubin AST ALT Alkaline Phosphatase Creatine Kinase Troponin I B-Natriuretic Peptide Total Protein Albumin TSH Free T4 Urine Color Urine Appearance Urine pH Ur Specific Tilden Urine Protein Urine Glucose (UA) Urine Ketones Urine Blood Urine Nitrite Urine Bilirubin Urine Urobilinogen Ur Leukocyte Esterase Urine WBC (Auto) Urine RBC (Auto) Urine Casts (Auto) U Pathogenic Cast Auto U Epithel Cells (Auto) Urine Bacteria (Auto) Urine Osmolality 465 Ur Random Sodium 67 Ur Sodium 24 Hour 09/12/18 09/13/18 09/13/18 21:30 01:20 01:20 WBC 4.3 RBC 2.35 L Hgb 7.5 L Hct 21.6 L D MCV 92.0 MCH 31.9 MCHC 34.7 RDW 16.1 H Plt Count 102 L MPV 9.7 Absolute Neuts (auto) 2.6 Total Counted 100 Neutrophils % 58.0 D Neutrophils % (Manual) 58.0 Lymphocytes % 36.0 D Lymphocytes % (Manual) 36.0 D Monocytes % 4.0 Monocytes % (Manual) 4 D Eosinophils % 1.0 Eosinophils % (Manual) 1.0 D Basophils % Nucleated RBC % 0 Metamyelocytes 1 D Platelet Estimate Slt decrease Platelet Comment No clotting detected PT with INR INR PTT (Actin FS) Sodium 121 L Potassium 4.1 Chloride 84 L Carbon Dioxide 28 Anion Gap 9 BUN 15.1 Creatinine 0.3 L Est GFR (CKD-EPI)AfAm 150.44 Est GFR (CKD-EPI)NonAf 129.80 Random Glucose 65 L Serum Osmolality Lactic Acid Uric Acid Calcium 7.7 L Phosphorus Magnesium Total Bilirubin AST ALT Alkaline Phosphatase Creatine Kinase Troponin I B-Natriuretic Peptide Total Protein Albumin TSH Free T4 Urine Color Yellow Urine Appearance Turbid Urine pH 6.0 Ur Specific T[place] 1.015 Urine Protein 2+ H Urine Glucose (UA) 1+ H Urine Ketones Negative Urine Blood 1+ H Urine Nitrite Negative Urine Bilirubin Negative Urine Urobilinogen 0.2 Ur Leukocyte Esterase 3+ H Urine WBC (Auto) 886 Urine RBC (Auto) 18.4 Urine Casts (Auto) 3 U Pathogenic Cast Auto U Epithel Cells (Auto) 12.9 Urine Bacteria (Auto) 1303.4 Urine Osmolality Ur Random Sodium Ur Sodium 24 Hour 09/13/18 09/13/18 09/13/18 01:20 05:53 05:53 WBC 3.2 L RBC 2.45 L Hgb 7.7 L Hct 22.8 L MCV 93.1 MCH 31.6 MCHC 33.9 RDW 16.1 H Plt Count 100 L MPV 9.0 Absolute Neuts (auto) Total Counted Neutrophils % Neutrophils % (Manual) Lymphocytes % Lymphocytes % (Manual) Monocytes % Monocytes % (Manual) Eosinophils % Eosinophils % (Manual) Basophils % Nucleated RBC % Metamyelocytes Platelet Estimate Platelet Comment PT with INR 12.40 INR 1.05 PTT (Actin FS) 34.9 Sodium Potassium Chloride Carbon Dioxide Anion Gap BUN Creatinine Est GFR (CKD-EPI)AfAm Est GFR (CKD-EPI)NonAf Random Glucose Serum Osmolality Lactic Acid 0.6 Uric Acid Calcium Phosphorus Magnesium Total Bilirubin AST ALT Alkaline Phosphatase Creatine Kinase Troponin I B-Natriuretic Peptide Total Protein Albumin TSH Free T4 Urine Color Urine Appearance Urine pH Ur Specific T[place] Urine Protein Urine Glucose (UA) Urine Ketones Urine Blood Urine Nitrite Urine Bilirubin Urine Urobilinogen Ur Leukocyte Esterase Urine WBC (Auto) Urine RBC (Auto) Urine Casts (Auto) U Pathogenic Cast Auto U Epithel Cells (Auto) Urine Bacteria (Auto) Urine Osmolality Ur Random Sodium Ur Sodium 24 Hour 09/13/18 05:53 WBC RBC Hgb Hct MCV MCH MCHC RDW Plt Count MPV Absolute Neuts (auto) Total Counted Neutrophils % Neutrophils % (Manual) Lymphocytes % Lymphocytes % (Manual) Monocytes % Monocytes % (Manual) Eosinophils % Eosinophils % (Manual) Basophils % Nucleated RBC % Metamyelocytes Platelet Estimate Platelet Comment PT with INR INR PTT (Actin FS) Sodium 118 L* Potassium 4.3 Chloride 83 L Carbon Dioxide 28 Anion Gap 6 L BUN 16.2 Creatinine 0.3 L Est GFR (CKD-EPI)AfAm 150.44 Est GFR (CKD-EPI)NonAf 129.80 Random Glucose 88 Serum Osmolality Lactic Acid Uric Acid Calcium 7.7 L Phosphorus 3.3 Magnesium 1.5 L Total Bilirubin 0.2 AST 24 ALT 35 Alkaline Phosphatase 214 H Creatine Kinase Troponin I B-Natriuretic Peptide Total Protein 6.6 Albumin 2.0 L TSH 9.98 H Free T4 1.05 Urine Color Urine Appearance Urine pH Ur Specific T[place]en Urine Protein Urine Glucose (UA) Urine Ketones Urine Blood Urine Nitrite Urine Bilirubin Urine Urobilinogen Ur Leukocyte Esterase Urine WBC (Auto) Urine RBC (Auto) Urine Casts (Auto) U Pathogenic Cast Auto U Epithel Cells (Auto) Urine Bacteria (Auto) Urine Osmolality Ur Random Sodium Ur Sodium 24 Hour Active Medications Generic Name Dose Route Start Last Admin Trade Name Freq PRN Reason Stop Dose Admin Albuterol/Ipratropium 1 amp 09/12/18 18:48 09/12/18 22:01 Duoneb - NEB 1 amp Q6H PRN Administration SHORT OF BREATH/WHEEZING Amino Acids 30 ml 09/13/18 08:00 Prosource No Carb Liquid Pkt GT DAILY@0800 [facility] Amlodipine Besylate 5 mg 09/13/18 10:00 Norvasc - GT DAILY [facility] Ascorbic Acid 500 mg 09/13/18 10:00 Vitamin C - GT DAILY [facility] Carbamazepine 200 mg 09/13/18 08:00 Tegretol - GT TIDCM [facility] Chlorhexidine Gluconate 1 applic 09/12/18 22:00 09/13/18 02:21 Hibiclens For Decolonization - TP 1 applic HS [facility] Administration Clonazepam 0.5 mg 09/12/18 22:00 09/12/18 22:28 Klonopin - GT 0.5 mg HS [facility] Administration Heparin Sodium (Porcine) 5,000 unit 09/12/18 22:00 09/12/18 22:27 Heparin - SQ 5,000 unit BID [facility] Administration Hydralazine HCl 50 mg 09/12/18 22:00 09/13/18 06:13 Apresoline - GT Not Given TID [facility] Lactobacillus Acidophilus 1 tab 09/12/18 22:00 09/12/18 22:28 Bacid - GT 1 tab BID [facility] Administration Levothyroxine Sodium 100 mcg 09/13/18 07:00 Synthroid - GT DAILY@0700 [facility] Loratadine 10 mg 09/13/18 10:00 Claritin - GT DAILY [facility] Magnesium Sulfate 1 gm 09/13/18 07:43 Magnesium Sulfate IVPB 09/13/18 07:44 ONCE ONE Mirtazapine 7.5 mg 09/12/18 22:00 09/12/18 22:28 Remeron - GT 7.5 mg HS [facility] Administration Mupirocin 1 applic 09/12/18 22:00 09/12/18 22:26 Bactroban Ointment (For Decolonization) - NS 09/17/18 21:59 1 applic BID [facility] Administration Sertraline HCl 50 mg 09/13/18 10:00 Zoloft - GT DAILY [facility] Sodium Chloride 1 gm 09/12/18 22:00 09/12/18 22:28 Sodium Chloride Tablet - GT 1 gm BID [facility] Administration ASSESSMENT/PLAN: Euvolemic hyponatremia 2/2 to SIADH Chronic respiratory failure s/p trach collar Normocytic anemia 2/2 to chronic disease Functional quadriplegia HTN Hypothyroidism --Likely hyponatremia 2/2 to SIADH given uric acid level low --FT4 noted to be WNL with abnormal TSH --Continue fluid restriction (goal 500cc per day) --Continue Sodium chloride tablets BID --Nephrology on board and appreciated recommendations --Monitor for neurological changes --Monitor Na q6h --Pt tolerating normal ventilator settings and trach collar at this time --monitor secretions and aspiration precautions in place --CXR reviewed with questionable opacification in RLL --Continue PRN bronchodilators --Resume Hydralazine 50mg TID as pt's BP this morning elevated (SBP 170) --Continue Norvasc 5mg qdaily FEN: Fluid: Restriction to 500cc per day Electrolyte abnormalities: Hyponatremia as above, HypoMg (repleted with 1gm IVPB) Nutrition: Tube feeds 30cc/hr however reduced flushes from 30cc to 15 cc in lieu of fluid restriction PPX: DVt - Heparin TID SQ GI - None indicated Dispo: Transfer to M/S floor given stability Case discussed with Dr. Xander Montes, DO - IM PGy-3 Visit type - Emergency Visit Emergency Visit: Yes ED Registration Date: 09/12/18 Care time: The patient presented to the Emergency Department on the above date and was hospitalized for further evaluation of their emergent condition. - New Patient This patient is new to me today: Yes Date on this admission: 09/13/18 - Critical Care Critical Care patient: Yes Total Critical Care Time (in minutes): 35 Critical Care Statement: The care of this patient involved high complexity decision making to prevent further life threatening deterioration of the patient 's condition and/or to evaluate & treat vital organ system(s) failure or risk of failure.
[2018-09-13] MEDS ORDERED: MAGNESIUM SULF 50% (8.12 MEQ/2 ML-1 GM VIAL) IVPB ONE (09:30)
[2018-09-13] MEDS ORDERED: PIPERACILLIN/TAZOB 3.375 GM 3.375 GM in DEXTROSE 5%-WATER - 50 ML IVPB ONE (09:30)
[2018-09-13] MEDS ORDERED: PIPERACILLIN/TAZOBACTAM 3.375 GM VIAL IVPB ONE ×2 (09:35→16:59)
[2018-09-13] MEDS ORDERED: DEXTROSE 5%-WATER - 50 ML IVPB ONE ×2 (09:35→16:59)
[2018-09-13] MEDS: ASCORBIC ACID 500 MG TABLET (FP) GT SCH (09:45)
[2018-09-13] MEDS: LORATADINE 10 MG TABLET GT SCH (09:45)
[2018-09-13] MEDS: SERTRALINE HCL 50 MG TABLET (FP) GT SCH (09:45)
[2018-09-13] MEDS: amLODIPine BESYLATE 5 MG TABLET (FP) GT SCH (09:45)
[2018-09-13] MEDS: AMINO ACIDS/PROTEIN HYDROLYS 30 ML LIQUID.PKT GT SCH (09:46)
[2018-09-13] MEDS: carBAMazepine 200 MG TABLET GT SCH ×3 (09:46→17:35)
[2018-09-13] MEDS: HEPARIN NA (PORCINE) 5,000 UNITS/ML 1ML VIAL SQ SCH ×2 (09:47→22:31)
[2018-09-13] MEDS: LACTOBACILLUS ACIDOPHILUS 1 TABLET GT SCH ×2 (09:47→22:29)
[2018-09-13] MEDS: SODIUM CHLORIDE 1 GM TABLET GT SCH (09:47)
[2018-09-13] MEDS ORDERED: SODIUM CHLORIDE 1 GM TABLET GT SCH (10:00)
[2018-09-13] MEDS: MUPIROCIN 2% TOPICAL OINTMENT FOR DECOLONIZATION NS SCH ×2 (10:20→22:32)
--- NOTE | 2018-09-13 10:24 | PN ---
Progress Note (short form) - Note Progress Note: ID CONSULT DICTATED HYPOTHERMIA R/O SEPSIS ? RECURRENT ASP RLL PNEUMONIA HYPONATREMIA ?UTI NEUROGENIC BLADDER MS PENDING SEPSIS W/U EMPIRIC ZOSYN
--- NOTE | 2018-09-13 11:29 | PN ---
Teaching Attending Note Name of Resident: Yariel Montes ATTENDING PHYSICIAN STATEMENT I saw and evaluated the patient. I reviewed the resident's note and discussed the case with the resident. I agree with the resident's findings and plan as documented. SUBJECTIVE: Pt seen and examined in the ICU. Serum sodium improving. Not requiring hypertonic saline. Mental status at baseline. OBJECTIVE: Vital Signs Period Temp Pulse Resp BP Sys/Morillo Pulse Ox Last 24 Hr 95 F-98 F 57-98 12-17 62-153/35-81 98-100 Intake & Output 09/10/18 09/11/18 09/12/18 09/13/18 23:59 23:59 23:59 23:59 Intake Total 620 Output Total 300 250 Balance -300 370 Weight 68.209 kg 68.209 kg Gen: NAD on trach collar Heart: RRR Lung: decreased breath sounds at the bases Abd: soft, nontender Ext: no edema CBC, BMP 09/13/18 05:53 09/13/18 05:53 Active Medications Albuterol/Ipratropium (Duoneb -) 1 amp NEB Q6H PRN PRN Reason: SHORT OF BREATH/WHEEZING Last Admin: 09/12/18 22:01 Dose: 1 amp Amino Acids (Prosource No Carb Liquid Pkt) 30 ml GT DAILY@0800 [facility] Last Admin: 09/13/18 09:46 Dose: 30 ml Amlodipine Besylate (Norvasc -) 5 mg GT DAILY [facility] Last Admin: 09/13/18 09:45 Dose: 5 mg Ascorbic Acid (Vitamin C -) 500 mg GT DAILY [facility] Last Admin: 09/13/18 09:45 Dose: 500 mg Carbamazepine (Tegretol -) 200 mg GT TIDCM [facility] Last Admin: 09/13/18 09:46 Dose: 200 mg Chlorhexidine Gluconate (Hibiclens For Decolonization -) 1 applic TP HS [facility] Last Admin: 09/13/18 02:21 Dose: 1 applic Clonazepam (Klonopin -) 0.5 mg GT HS [facility] Last Admin: 09/12/18 22:28 Dose: 0.5 mg Heparin Sodium (Porcine) (Heparin -) 5,000 unit SQ BID [facility] Last Admin: 09/13/18 09:47 Dose: 5,000 unit Hydralazine HCl (Apresoline -) 50 mg GT TID [facility] Last Admin: 09/13/18 06:13 Dose: Not Given Piperacillin Sod/Tazobactam (Sod 3.375 gm/ Dextrose) 50 mls @ 100 mls/hr IVPB Q8H-IV [facility]; Protocol Lactobacillus Acidophilus (Bacid -) 1 tab GT BID [facility] Last Admin: 09/13/18 09:47 Dose: 1 tab Levothyroxine Sodium (Synthroid -) 100 mcg GT DAILY@0700 [facility] Loratadine (Claritin -) 10 mg GT DAILY [facility] Last Admin: 09/13/18 09:45 Dose: 10 mg Mirtazapine (Remeron -) 7.5 mg GT HS [facility] Last Admin: 09/12/18 22:28 Dose: 7.5 mg Mupirocin (Bactroban Ointment (For Decolonization) -) 1 applic NS BID [facility] Stop: 09/17/18 21:59 Last Admin: 09/13/18 10:20 Dose: 1 applic Sertraline HCl (Zoloft -) 50 mg GT DAILY [facility] Last Admin: 09/13/18 09:45 Dose: 50 mg Sodium Chloride (Sodium Chloride Tablet -) 1 gm GT BID [facility] Last Admin: 09/13/18 09:47 Dose: 1 gm ASSESSMENT AND PLAN: Hyponatremia improving Multiple Sclerosis Chronic Respiratory Failure s/p Tracheostomy Functional Quadriplegia Atelectasis HTN Hypothyroidism - monitor sodium - fluid restriction - continue salt tabs - would monitor off antibiotics - f/u cultures - chest PT, pulmonary toilet - inhaled bronchodilators - trach collar during day, vent support at night - enteral feeds - DVT/GI prophylaxis - can monitor on vent floor
--- NOTE | 2018-09-13 11:30 | CONS ---
DATE OF CONSULTATION: DATE OF DICTATION: 09/13/2018 HISTORY OF PRESENT ILLNESS: The patient is a 53-year-old female with a history of advanced multiple sclerosis with multiple recent hospital admissions now evaluated for possible sepsis. Patient has been hospitalized on nearly a monthly basis for the past several months. She was recently hospitalized in August 2018. She is cared for at home by her mother. She was noted to have increased tracheal secretions over the past several days. In addition, she complained of a sore throat, which was possibly was related to frequent suctioning. She was evaluated in the emergency room at [facility] where she was noted to be hypothermic and hypotensive. In addition, routine blood work revealed a serum sodium of 116. She was presently awake and alert in the intensive care unit. The mother reports that she has had thick tracheal secretions and difficulty expectorating. She has a history of neurogenic bladder with indwelling catheter. The mother reports that recent urinalysis was negative for urinary tract infection. Her course has been complicated by hypothermia and leukopenia. No reports of chest pain, labored breathing, vomiting, urine, or diarrhea. She does have a sacral decubitus ulcer. Previous cultures have been positive for Pseudomonas, Serratia and Group B strep from the sputum. PAST MEDICAL HISTORY: Positive for advanced multiple sclerosis. She is bedbound. History of trigeminal neuralgia, neurogenic bladder, hypertension, hyperlipidemia, hypothyroidism, hyponatremia ALLERGIES: CHLORAL HYDRATE and AZATHIOPRINE. PAST SURGICAL HISTORY: She is status post tracheostomy and feeding gastrostomy. MEDICATIONS: Albuterol, amlodipine, Tegretol, Synthroid, Remeron. SOCIAL HISTORY: She resides at home with her family, cared for by her mother and house aides, multiple recent hospitalizations. SYSTEMS REVIEW: Neurologic: As per HPI. Cardiac: Negative chest pain, or palpitations. Respiratory: History of tracheostomy and recurrent aspiration. Gastrointestinal: Positive feeding gastrostomy. Genitourinary: Positive for neurogenic bladder and recurrent urinary tract infections. LABORATORY DATA: White count 3.2, 15 neutrophils, 36 lymphocytes, 4 monocytes, hematocrit 22.8, platelet count 100. Sodium 118, creatinine 0.3, total bilirubin 0.2, alkaline phosphatase 214, AST 24. Urinalysis 886 white cells. Blood cultures are pending. Chest x-ray shows increased markings at the right base. PHYSICAL EXAMINATION: General: On exam, she is clinically ill-appearing awake and alert, in no acute distress, breathing is normal. Vitals: Temperature 98, blood pressure 98/50, pulse 89 regular, respirations 20 per minute. HEENT: Sclera anicteric. Tracheostomy site clear. Heart: Sounds S1, S2. Lungs: Rhonchi bilaterally. Abdomen: Soft, nontender. Extremities: Positive for edema. Positive sacral decubitus ulcer. IMPRESSION: 1. Hypothermia, rule out sepsis. 2. Possible recurrent aspiration right lower lobe pneumonia. 3. Urinary tract infection, rule out sepsis, secondary to urinary tract infection. 4. Hyponatremia. 5. Neurogenic bladder. 6. Advanced multiple sclerosis. 7. Sacral decubitus ulcer. RECOMMENDATIONS: Await sepsis workup. Empiric antibiotic coverage for hospital acquired respiratory and urinary tract pathogens with Zosyn. Further recommendations pending cultures. The case was discussed with the mother present at the time of the examination. Thank you for the kind referral. MARGY MUÑIZ M.D. [id number]
[2018-09-13] MEDS ORDERED: SODIUM CHLORIDE 3% 500 ML/500 ML INFUS.BAG IV ONE (12:00)
--- NOTE | 2018-09-13 12:08 | EKG ---
Test Reason : Blood Pressure : / mmHG Vent. Rate : 064 BPM Atrial Rate : 064 BPM P-R Int : 144 ms QRS Dur : 098 ms QT Int : 392 ms P-R-T Axes : 024 010 032 degrees QTc Int : 404 ms POOR DATA QUALITY, INTERPRETATION MAY BE ADVERSELY AFFECTED NORMAL SINUS RHYTHM NONSPECIFIC ST ABNORMALITY ABNORMAL ECG WHEN COMPARED WITH ECG OF 18-AUG-2018 09:49, QRS DURATION HAS DECREASED Confirmed by Alonzo Paige ([id number]) on 09/13/2018 12:07:37 PM Referred By: Confirmed By:Alonzo Paige
--- NOTE | 2018-09-13 12:08 | PN ---
Progress Note (short form) - Note Progress Note: Renal follow up for hyponatremia Pt seen and examined in the ICU awake and alert no seizures, lethargy, confusion, N/V on trach collar Vital Signs Temperature 97.2 F L 09/13/18 10:00 Pulse Rate 80 09/13/18 12:00 Respiratory Rate 18 09/13/18 12:00 Blood Pressure 137/63 09/13/18 12:00 O2 Sat by Pulse Oximetry (%) 100 09/13/18 09:00 Intake & Output 09/10/18 09/11/18 09/12/18 09/13/18 23:59 23:59 23:59 23:59 Intake Total 620 Output Total 300 250 Balance -300 370 Weight 68.209 kg 68.209 kg NAD on trach collar RRR, no M/R CTA, no rales or wheeze soft NT/ND no LE or sacral edema CBC, BMP 09/13/18 05:53 Laboratory Tests 05/24/18 07/21/18 07/21/18 06:05 00:30 00:30 Sodium Calcium 8.5 Phosphorus Magnesium Albumin 2.2 L Urine Osmolality 469 Ur Random Sodium 32 L 07/22/18 09/12/18 09/12/18 07:00 13:40 20:30 Sodium 116 L* 119 L Calcium 8.9 Phosphorus 3.2 Magnesium 2.2 Albumin 2.4 L Urine Osmolality Ur Random Sodium 09/13/18 09/13/18 01:20 05:53 Sodium 121 L 118 L* Calcium Phosphorus Magnesium Albumin Urine Osmolality Ur Random Sodium Current Medications Albuterol/Ipratropium (Duoneb -) 1 amp NEB Q6H PRN PRN Reason: SHORT OF BREATH/WHEEZING Last Admin: 09/12/18 22:01 Dose: 1 amp Amino Acids (Prosource No Carb Liquid Pkt) 30 ml GT DAILY@0800 [facility] Last Admin: 09/13/18 09:46 Dose: 30 ml Amlodipine Besylate (Norvasc -) 5 mg GT DAILY [facility] Last Admin: 09/13/18 09:45 Dose: 5 mg Ascorbic Acid (Vitamin C -) 500 mg GT DAILY [facility] Last Admin: 09/13/18 09:45 Dose: 500 mg Carbamazepine (Tegretol -) 200 mg GT TIDCM [facility] Last Admin: 09/13/18 09:46 Dose: 200 mg Chlorhexidine Gluconate (Hibiclens For Decolonization -) 1 applic TP HS [facility] Last Admin: 09/13/18 02:21 Dose: 1 applic Clonazepam (Klonopin -) 0.5 mg GT HS [facility] Last Admin: 09/12/18 22:28 Dose: 0.5 mg Heparin Sodium (Porcine) (Heparin -) 5,000 unit SQ BID [facility] Last Admin: 09/13/18 09:47 Dose: 5,000 unit Hydralazine HCl (Apresoline -) 50 mg GT TID [facility] Last Admin: 09/13/18 06:13 Dose: Not Given Piperacillin Sod/Tazobactam (Sod 3.375 gm/ Dextrose) 50 mls @ 100 mls/hr IVPB Q8H-IV [facility]; Protocol Sodium Chloride (Sodium Chloride 3%) 500 ml in 500 mls @ 40 mls/hr IV ASDIR ONE Stop: 09/14/18 00:29 Lactobacillus Acidophilus (Bacid -) 1 tab GT BID [facility] Last Admin: 09/13/18 09:47 Dose: 1 tab Levothyroxine Sodium (Synthroid -) 100 mcg GT DAILY@0700 [facility] Loratadine (Claritin -) 10 mg GT DAILY [facility] Last Admin: 09/13/18 09:45 Dose: 10 mg Mirtazapine (Remeron -) 7.5 mg GT HS [facility] Last Admin: 09/12/18 22:28 Dose: 7.5 mg Mupirocin (Bactroban Ointment (For Decolonization) -) 1 applic NS BID [facility] Stop: 09/17/18 21:59 Last Admin: 09/13/18 10:20 Dose: 1 applic Sertraline HCl (Zoloft -) 50 mg GT DAILY [facility] Last Admin: 09/13/18 09:45 Dose: 50 mg Sodium Chloride (Sodium Chloride Tablet -) 1 gm GT BID [facility] Last Admin: 09/13/18 09:47 Dose: 1 gm 53 year old woman with history of multiple sclerosis, respiratory failure on trach, hx of SIADH, neurogenic bladder who presented from home with increased respiratory secretions and found to have hyponatremia with Na of 116. #Hyponatremia secondary to SIADH vs. intravascular volume depletion-less likely #Increased respiratory secretions #Anemia #Multiple sclerosis #Chronic respiratory failure with trach Urine studies and clinical presentation consistent with that of SIADH given lack of significant improvement with salt tabs and fluid restriction alone will start hypertonic saline start 3% saline at 40cc per hour, monitor Na Q6h Goal rate of correction is 6-8 in 24 hours Case discussed with ICU team Tyshawn Liriano DO
--- NOTE | 2018-09-13 12:17 | HP ---
Admitting History and Physical - Primary Care Physician PCP: Anne Lopez - Admission History of Present Illness: Ms. Wood is a 53yo F with PMH significant for advanced MS (30 years), on trach collar with vent at night, 2L home O2, with G-tube, chronic hyponatremia, hypothyroidism, trigeminal neuralgia, recurrent UTI, wheelchair bound, presenting with 2 days of increasing amounts of secretions requiring frequent suctioning. Has not been requiring lasix at home. Sent urine via PCP over the weekend, reported negative - pt gets straight cathed, denies abdominal pain / fullness. Denies fever, chills, night sweats, chest pain, headache, wheezes, cough. Pt endorses throat pain over the weekend. 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 No: Asthma, Bronchitis , Cancer, COPD, Pulmonary Embolus, Pulmonary Fibrosis, Sleep Apnea Gastrointestinal: Yes: Constipation (chronic) Hepatobiliary: Yes: Cholelithiasis Renal/: Yes: Neurogenic Bladder ( neurogenic bladder, chronic perera catheter) ...LMP: 06/07/12 Heme/Onc: Yes: Anemia Infectious Disease: Yes: Other (pneumonia, uti treated by urologist) Musculoskeletal: Yes: Other (Quadraplegia) Dermatology: Yes: Other (chronic decubitus followed by wound care) - Past Surgical History Past Surgical History: Yes: Colonoscopy - Smoking History Smoking history: Current every day smoker Have you smoked in the past 12 months: No Aproximately how many cigarettes per day: 0 - Alcohol/Substance Use Hx Alcohol Use: No History of Substance Use: reports: None - Social History ADL: Support Services History of Recent Travel: No Home Medications - Allergies Allergies/Adverse Reactions: Allergies Allergy/AdvReac Type Severity Reaction Status Date / Time chloral hydrate Allergy Intermediate Rash Verified 09/12/18 12:32 [Chloral Hydrate] azathioprine [From Imuran] Allergy Rash Verified 09/12/18 12:32 azathioprine sodium Allergy Rash Verified 09/12/18 12:32 [From Imuran] adhesive tape AdvReac Severe sensitivity Verified 09/12/18 12:32 to glue adhesive AdvReac Unknown Verified 09/12/18 12:32 - Home Medications Home Medications: Ambulatory Orders Melatonin 2 mg GT HS 05/03/18 Multivitamin [Multiple Vitamins] 1 each GT DAILY 05/03/18 Albuterol 2.5/Ipratropium 0.5 [Duoneb -] 1 amp NEB Q6H PRN #45 amp 05/28/18 Sodium Chloride Tablet - 1 gm GT DAILY #30 tablet 07/25/18 Carbamazepine [Tegretol -] 200 mg GT TIDCM tablet 08/22/18 Levothyroxine [Synthroid -] 100 mcg GT DAILY@0700 tablet 08/22/18 Amino Acids/Protein Hydrolys [Prosource No Carb Liquid Pkt] 30 ml PO DAILY@0800 09/12/18 Amlodipine Besylate [Norvasc -] 5 mg GT DAILY 09/12/18 Ascorbic Acid [Vitamin C -] 500 mg GT DAILY 09/12/18 Lactobacillus Acidophilus [Bacid -] 1 tab GT BID 09/12/18 Loratadine [Claritin -] 10 mg GT DAILY 09/12/18 Mirtazapine [Remeron -] 7.5 mg GT HS 09/12/18 Sertraline HCl [Zoloft -] 50 mg GT DAILY 09/12/18 hydrALAZINE HCL [Apresoline -] 50 mg GT TID 09/12/18 Family Disease History - Family Disease History Family Disease History: Diabetes: Sister, Other: Mother Physical Examination Vital Signs: Vital Signs Temperature 97.2 F L 09/13/18 10:00 Pulse Rate 72 09/13/18 10:00 Respiratory Rate 18 09/13/18 10:00 Blood Pressure 148/80 09/13/18 10:00 O2 Sat by Pulse Oximetry (%) 100 09/13/18 09:00 Labs: CBC, BMP 09/13/18 05:53 09/13/18 05:53 Problem List - Problems (1) Acute on chronic respiratory failure with hypoxia and hypercapnia Code(s): J96.21 - ACUTE AND CHRONIC RESPIRATORY FAILURE WITH HYPOXIA; J96.22 - ACUTE AND CHRONIC RESPIRATORY FAILURE WITH HYPERCAPNIA (2) Altered mental status Code(s): R41.82 - ALTERED MENTAL STATUS, UNSPECIFIED (3) Anemia Code(s): D64.9 - ANEMIA, UNSPECIFIED Qualifiers: Other causes of anemia: other cause, not classified (4) Functional 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 (5) Hyponatremia Code(s): E87.1 - HYPO-OSMOLALITY AND HYPONATREMIA (6) Hypothyroid Code(s): E03.9 - HYPOTHYROIDISM, UNSPECIFIED (7) Multiple drug resistant organism (MDRO) culture positive Code(s): Z16.24 - RESISTANCE TO MULTIPLE ANTIBIOTICS
[2018-09-13] MEDS: PIPERACILLIN/TAZOB 3.375 GM 3.375 GM in DEXTROSE 5%-WATER - 50 ML IVPB SCH (17:35)
--- NOTE | 2018-09-13 21:34 | CONSULT ---
Consult - text type - Consultation Consultation Note: NEUROLOGY CONSULT GREATLY APPRECIATED: Events reviewed and discussed with staff. Pt examined with mother at bedside. Geetha is well-known to our service. 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 S/P Baclofen pump. On Tegretol 200 mg TID (complicated by chronic hyponatremia) and Lyrica. Pt admits only taking Lyrica "when facial pain bad" and noticing it made her "sleepy." Indwelling perera with Recurrent UTIs. S/P trache with ventilation at night. Progressive dysphagia, s/p PEG. Now admitted with excess oral secretions requiring suctioning. Na+=118 mg% H/H=7.7/28.8; TSH= 9.98!; FT4 1.05; UA= 2944 - on IV Zosyn GODFREY: Comfortable on ventilator, s/p trache, PEG, perera. NEURO: Awake, alert. Follows commands. CN II-XII: decreased vision. Full martin. Decreased tongue ESSENCE's Flaccid areflexic tetraplegia. Plantars silent Decreased pinch in all fours IMP: Advanced MS with tetraplegia, respiratory compromise, severe dysphagia. Worsened by Toxic-metabolic encephalopathy (hyponatremia, recurrent UTI, hypothyroid). Trigeminal Neuralgia Suggest: Continue antibiotics and hydration. Slowly correct hyponatremia and monitor trends Continue Tegretol 200 mg via PEG q 8 hrs with stat CBZ level Resume Pregabalin (lyrica) 50 mg q 8 hrs and gradually increase to 150 mg q8H Continue Clonazepam 0.5 mg qHs, mirtazapine, sertraline Adjust Rx for hypothyroidism as indicated Review home regimen of tube feed and free H20 volume to advise appropriate daily volume intake. Bedside PT Thank you very much, Rom Conroy MD
[2018-09-13] MEDS: ALBUTEROL SO4 2.5/IPRATROPIUM 0.5 INH SOL 3 ML VIAL.NEB. NEB PRN (21:35)
[2018-09-13] MEDS: MIRTAZAPINE 15 MG TABLET (FP) GT SCH (22:29)
[2018-09-13] MEDS ORDERED: DEXTROSE 5%-WATER - 1,000 ML IV SCH (22:30)
[2018-09-13] MEDS: clonazePAM 0.5 MG TABLET GT SCH (22:31)
[2018-09-13] MEDS: PREGABALIN 50 MG CAPSULE PO SCH (22:35)
[2018-09-13] MEDS ORDERED: DESMOPRESSIN ACETATE 0.1 MG TABLET GT ONE (22:43)
--- NOTE | 2018-09-13 22:45 | PN ---
Progress Note (short form) - Note Progress Note: UPDATE 1: Pt's 2200h Na 131. Discussed with nephrology and will give D5W@400cc/ hr for 2 hrs and DDAVP 0.1mg GT once. Pt currently has no further neurological decline at this point and remains comfortable. Repeat Na in 4 hours Pt's repeat Na showing 127. Discontinue hypertonic saline and held Sodium chloride tablet. --Will repeat Na at 2200h
[2018-09-14] MEDS ORDERED: DEXTROSE 5%-WATER - 50 ML IVPB ONE ×2 (01:41→11:01)
[2018-09-14] MEDS ORDERED: PIPERACILLIN/TAZOBACTAM 3.375 GM VIAL IVPB ONE ×2 (01:41→11:01)
[2018-09-14] MEDS: PIPERACILLIN/TAZOB 3.375 GM 3.375 GM in DEXTROSE 5%-WATER - 50 ML IVPB SCH ×2 (01:47→11:11)
[2018-09-14] MEDS: hydrALAZINE HCL 50 MG TABLET (FP) GT SCH ×3 (05:32→22:18)
[2018-09-14] MEDS ORDERED: LEVOTHYROXINE NA 75 MCG TABLET (FP) ONE (05:45)
[2018-09-14] MEDS ORDERED: LEVOTHYROXINE NA 50 MCG TABLET (FP) ONE (05:45)
[2018-09-14] MEDS: PREGABALIN 50 MG CAPSULE PO SCH ×3 (06:18→22:16)
[2018-09-14] MEDS ORDERED: PT OWN MED DRAWER 7, Y5N ONE ×3 (06:19→18:34)
[2018-09-14 06:43] LABS: HEMATOCRIT 20.7 % (32.4-45.2); MCH 31.7 pg (25.7-33.7); MCHC 33.1 g/dl (32.0-36.0); MEAN CELL VOLUME 95.7 fl (80-96); MEAN PLT VOLUME 9.2 fl (7.5-11.1); PLATELET COUNT 98 K/MM3 (134-434); RBC 2.17 M/mm3 (3.60-5.2); RDW 16.5 % (11.6-15.6); WHITE BLOOD COUNT 2.7 K/mm3 (4.0-10.0)
[2018-09-14 06:46] LABS: HEMOGLOBIN 6.9 GM/dL (10.7-15.3)
[2018-09-14] MEDS ORDERED: LEVOTHYROXINE PO SCH (07:00)
[2018-09-14 07:35] LABS: ALBUMIN 1.9 g/dl (3.4-5.0); BILIRUBIN,TOTAL 0.2 mg/dL (0.2-1); BLOOD UREA NITROGEN 22.3 mg/dL (7-18); CALCIUM 7.9 mg/dL (8.5-10.1); CREATININE 0.4 mg/dL (0.55-1.3); MAGNESIUM 2.2 mg/dL (1.8-2.4); TOT PROT 5.9 g/dl (6.4-8.2)
[2018-09-14] MEDS: carBAMazepine 200 MG TABLET GT SCH ×3 (09:00→19:54)
[2018-09-14] MEDS: AMINO ACIDS/PROTEIN HYDROLYS 30 ML LIQUID.PKT GT SCH (09:45)
[2018-09-14] MEDS ORDERED: LEVOTHYROXINE GT SCH (10:39)
--- NOTE | 2018-09-14 10:43 | PN ---
Progress Note, Physician Chief Complaint: AMS hyponatremia SIADH Anemia - Current Medication List Current Medications: Active Medications Albuterol/Ipratropium (Duoneb -) 1 amp NEB Q6H PRN PRN Reason: SHORT OF BREATH/WHEEZING Last Admin: 09/13/18 21:35 Dose: 1 amp Amino Acids (Prosource No Carb Liquid Pkt) 30 ml GT DAILY@0800 COUNT [facility]CLUDES [facility] Last Admin: 09/14/18 09:45 Dose: 30 ml Amlodipine Besylate (Norvasc -) 5 mg GT DAILY COUNT [facility]CLUDES [facility] Last Admin: 09/13/18 09:45 Dose: 5 mg Ascorbic Acid (Vitamin C -) 500 mg GT DAILY COUNT [facility]CLUD[facility] Last Admin: 09/13/18 09:45 Dose: 500 mg Carbamazepine (Tegretol -) 200 mg GT TIDCM COUNT INCLUDES [facility] Last Admin: 09/14/18 09:00 Dose: 200 mg Chlorhexidine Gluconate (Hibiclens For Decolonization -) 1 applic TP HS COUNT [facility]CLUDES [facility] Last Admin: 09/13/18 23:33 Dose: 1 applic Clonazepam (Klonopin -) 0.5 mg GT HS COUNT [facility]CLUDES [facility] Last Admin: 09/13/18 22:31 Dose: 0.5 mg Heparin Sodium (Porcine) (Heparin -) 5,000 unit SQ BID COUNT [facility]CLUDES [facility] Last Admin: 09/13/18 22:31 Dose: 5,000 unit Hydralazine HCl (Apresoline -) 50 mg GT TID COUNT [facility]CLUDES [facility] Last Admin: 09/14/18 05:32 Dose: Not Given Piperacillin Sod/Tazobactam (Sod 3.375 gm/ Dextrose) 50 mls @ 100 mls/hr IVPB Q8H-IV COUNT INCLUDES THE [facility]; Protocol Last Admin: 09/14/18 01:47 Dose: 100 mls/hr Lactobacillus Acidophilus (Bacid -) 1 tab GT BID COUNT [facility]CLUDES [facility] Last Admin: 09/13/18 22:29 Dose: 1 tab Levothyroxine Sodium 75 mcg/ (Levothyroxine Sodium 50 mcg) 125 mcg GT DAILY@ 0700 [facility] Loratadine (Claritin -) 10 mg GT DAILY [facility]CLUD[facility] Last Admin: 09/13/18 09:45 Dose: 10 mg Mirtazapine (Remeron -) 7.5 mg GT HS COUNT [facility]CLUDES [facility] Last Admin: 09/13/18 22:29 Dose: 7.5 mg Mupirocin (Bactroban Ointment (For Decolonization) -) 1 applic NS BID COUNT [facility]CLUDES [facility] Stop: 09/17/18 21:59 Last Admin: 09/13/18 22:32 Dose: 1 applic Pregabalin (Lyrica -) 50 mg PO Q8H COUNT [facility]CLUDES [facility] Last Admin: 09/14/18 06:18 Dose: 50 mg Sertraline HCl (Zoloft -) 50 mg GT DAILY COUNT [facility]CLUD[facility] Last Admin: 09/13/18 09:45 Dose: 50 mg Sodium Chloride (Sodium Chloride Tablet -) 1 gm GT BID COUNT [facility]CLUDES [facility] Last Admin: 09/13/18 09:47 Dose: 1 gm - Objective Vital Signs: Vital Signs Temperature 95.4 F L 09/14/18 06:00 Pulse Rate 50 L 09/14/18 06:00 Respiratory Rate 10 09/14/18 09:00 Blood Pressure 89/52 L 09/14/18 06:00 O2 Sat by Pulse Oximetry (%) 100 09/13/18 20:45 Constitutional: Yes: Well Nourished, No Distress, Calm Cardiovascular: Yes: Regular Rate and Rhythm Respiratory: Yes: Other (trach collar) Gastrointestinal: Yes: Normal Bowel Sounds, Soft Genitourinary: Yes: Raza Present Musculoskeletal: Yes: WNL, Muscle Weakness Extremities: Yes: WNL Edema: No Peripheral Pulses WNL: Yes Neurological: Yes: Alert, Oriented Psychiatric: Yes: Alert, Oriented Labs: CBC, BMP 09/14/18 05:50 09/14/18 05:50 INR, PTT INR 1.05 (0.83-1.09) 09/13/18 05:53 Problem List - Problems (1) Acute on chronic respiratory failure with hypoxia and hypercapnia Code(s): J96.21 - ACUTE AND CHRONIC RESPIRATORY FAILURE WITH HYPOXIA; J96.22 - ACUTE AND CHRONIC RESPIRATORY FAILURE WITH HYPERCAPNIA (2) Altered mental status Code(s): R41.82 - ALTERED MENTAL STATUS, UNSPECIFIED (3) Anemia Code(s): D64.9 - ANEMIA, UNSPECIFIED Qualifiers: Other causes of anemia: other cause, not classified (4) Functional 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 (5) Hyponatremia Code(s): E87.1 - HYPO-OSMOLALITY AND HYPONATREMIA (6) Hypothyroid Code(s): E03.9 - HYPOTHYROIDISM, UNSPECIFIED (7) Multiple drug resistant organism (MDRO) culture positive Assessment/Plan: -D/C abx -UC contaminated, pt asymptomatic -ID on board Code(s): Z16.24 - RESISTANCE TO MULTIPLE ANTIBIOTICS Assessment/Plan see problem list
[2018-09-14] MEDS: HEPARIN NA (PORCINE) 5,000 UNITS/ML 1ML VIAL SQ SCH ×2 (11:09→22:16)
[2018-09-14] MEDS: SERTRALINE HCL 50 MG TABLET (FP) GT SCH (11:09)
[2018-09-14] MEDS: MUPIROCIN 2% TOPICAL OINTMENT FOR DECOLONIZATION NS SCH (11:10)
[2018-09-14] MEDS: LACTOBACILLUS ACIDOPHILUS 1 TABLET GT SCH ×2 (11:10→22:16)
[2018-09-14] MEDS: LORATADINE 10 MG TABLET GT SCH (11:10)
[2018-09-14] MEDS: ASCORBIC ACID 500 MG TABLET (FP) GT SCH (11:10)
[2018-09-14] MEDS: SODIUM CHLORIDE 1 GM TABLET GT SCH ×2 (11:11→23:29)
[2018-09-14 11:26] LABS: BASO % 0.3 % (0-2.0); EOS % 9.7 % (0-4.5); HEMATOCRIT 23.5 % (32.4-45.2); HEMOGLOBIN 7.9 GM/dL (10.7-15.3); LYMPH % 12.3 % (8-40); MCH 31.7 pg (25.7-33.7); MCHC 33.6 g/dl (32.0-36.0); MEAN CELL VOLUME 94.3 fl (80-96); MEAN PLT VOLUME 9.1 fl (7.5-11.1); NEUT % 65.7 % (42.8-82.8); RBC 2.49 M/mm3 (3.60-5.2); RDW 16.4 % (11.6-15.6)
[2018-09-14] MEDS: amLODIPine BESYLATE 5 MG TABLET (FP) GT SCH (11:29)
[2018-09-14] MEDS ORDERED: amLODIPine BESYLATE 2.5 MG TABLET (FP) GT SCH (11:30)
--- NOTE | 2018-09-14 11:59 | PN ---
Teaching Attending Note Name of Resident: Yariel Pruett ATTENDING PHYSICIAN STATEMENT I saw and evaluated the patient. I reviewed the resident's note and discussed the case with the resident. I agree with the resident's findings and plan as documented. SUBJECTIVE: Pt seen and examined in the ICU. Hypotensive overnight but pt asymptomatic and normal per pt and family. Sodium improving. States she feels at baseline. OBJECTIVE: Vital Signs Period Temp Pulse Resp BP Sys/Morillo Pulse Ox Last 24 Hr 95.4 F-97 F 45-80 10-18 67-137/33-66 100-100 Intake & Output 09/11/18 09/12/18 09/13/18 09/14/18 23:59 23:59 23:59 23:59 Intake Total 620 1734 Output Total 504 767 5953 Balance -300 -130 -366 Weight 68.209 kg 68.039 kg 68.663 kg Gen: NAD on trach collar Heart: RRR Lung: decreased breath sounds at the bases Abd: soft, nontender Ext: no edema CBC WBC 2.7 K/mm3 (4.0-10.0) L 09/14/18 05:50 RBC 2.17 M/mm3 (3.60-5.2) L 09/14/18 05:50 Hgb 6.9 GM/dL (10.7-15.3) L* 09/14/18 05:50 Hct 20.7 % (32.4-45.2) L 09/14/18 05:50 MCV 95.7 fl (80-96) 09/14/18 05:50 MCH 31.7 pg (25.7-33.7) 09/14/18 05:50 MCHC 33.1 g/dl (32.0-36.0) 09/14/18 05:50 RDW 16.5 % (11.6-15.6) H 09/14/18 05:50 Plt Count 98 K/MM3 (134-434) L 09/14/18 05:50 MPV 9.2 fl (7.5-11.1) 09/14/18 05:50 Absolute Neuts (auto) 2.6 K/mm3 (1.5-8.0) 09/13/18 01:20 Total Counted 100 09/13/18 01:20 Neutrophils % 58.0 % (42.8-82.8) D 09/13/18 01:20 Neutrophils % (Manual) 58.0 % (42.8-82.8) 09/13/18 01:20 Lymphocytes % 36.0 % (8-40) D 09/13/18 01:20 Lymphocytes % (Manual) 36.0 % (8-40) D 09/13/18 01:20 Monocytes % 4.0 % (3.8-10.2) 09/13/18 01:20 Monocytes % (Manual) 4 % (3.8-10.2) D 09/13/18 01:20 Eosinophils % 1.0 % (0-4.5) 09/13/18 01:20 Eosinophils % (Manual) 1.0 % (0-4.5) D 09/13/18 01:20 Basophils % 0.1 % (0-2.0) 09/12/18 13:40 Nucleated RBC % 0 % (0-0) 09/13/18 01:20 Metamyelocytes 1 % (0-2) D 09/13/18 01:20 Platelet Estimate Slt decrease 09/13/18 01:20 Platelet Comment No clumping noted 09/13/18 01:20 Platelet Comment No clotting detected 09/13/18 01:20 CMP Sodium 129 mmol/L (136-145) L 09/14/18 05:50 Potassium 4.0 mmol/L (3.5-5.1) 09/14/18 05:50 Chloride 92 mmol/L (98-107) L 09/14/18 05:50 Carbon Dioxide 32 mmol/L (21-32) 09/14/18 05:50 Anion Gap 6 MMOL/L (8-16) L 09/14/18 05:50 BUN 22.3 mg/dL (7-18) H 09/14/18 05:50 Creatinine 0.4 mg/dL (0.55-1.3) L 09/14/18 05:50 Est GFR (CKD-EPI)AfAm 136.86 09/14/18 05:50 Est GFR (CKD-EPI)NonAf 118.08 09/14/18 05:50 Random Glucose 104 mg/dL (74-106) 09/14/18 05:50 Serum Osmolality 242 mosm/kg (278-305) L 09/12/18 17:17 Lactic Acid 0.6 mmol/L (0.4-2.0) 09/13/18 01:20 Uric Acid 1.2 mg/dL (2.6-7.2) L 09/12/18 20:30 Calcium 7.9 mg/dL (8.5-10.1) L 09/14/18 05:50 Phosphorus 3.3 mg/dL (2.5-4.9) 09/13/18 05:53 Magnesium 2.2 mg/dL (1.8-2.4) 09/14/18 05:50 Ferritin 953.6 ng/ml (8-388) H 09/14/18 05:50 Total Bilirubin 0.2 mg/dL (0.2-1) 09/14/18 05:50 AST 17 U/L (15-37) 09/14/18 05:50 ALT 27 U/L (13-61) 09/14/18 05:50 Alkaline Phosphatase 206 U/L (45-117) H 09/14/18 05:50 Creatine Kinase 82 U/L (26-192) 09/12/18 13:40 Troponin I < 0.02 ng/ml (0.00-0.05) 09/12/18 13:40 B-Natriuretic Peptide 2284.3 pg/ml (5-125) H 09/12/18 13:40 Total Protein 5.9 g/dl (6.4-8.2) L 09/14/18 05:50 Albumin 1.9 g/dl (3.4-5.0) L 09/14/18 05:50 TSH 9.98 uIU/ml (0.358-3.74) H 09/13/18 05:53 Free T4 1.05 ng/dl (0.76-1.46) 09/13/18 05:53 Active Medications Albuterol/Ipratropium (Duoneb -) 1 amp NEB Q6H PRN PRN Reason: SHORT OF BREATH/WHEEZING Last Admin: 09/13/18 21:35 Dose: 1 amp Amino Acids (Prosource No Carb Liquid Pkt) 30 ml GT DAILY@0800 [facility] Last Admin: 09/14/18 09:45 Dose: 30 ml Amlodipine Besylate (Norvasc -) 2.5 mg GT DAILY [facility] Ascorbic Acid (Vitamin C -) 500 mg GT DAILY [facility] Last Admin: 09/14/18 11:10 Dose: 500 mg Carbamazepine (Tegretol -) 200 mg GT TIDCM [facility] Last Admin: 09/14/18 09:00 Dose: 200 mg Chlorhexidine Gluconate (Hibiclens For Decolonization -) 1 applic TP HS [facility] Last Admin: 09/13/18 23:33 Dose: 1 applic Clonazepam (Klonopin -) 0.5 mg GT HS [facility] Last Admin: 09/13/18 22:31 Dose: 0.5 mg Heparin Sodium (Porcine) (Heparin -) 5,000 unit SQ BID [facility] Last Admin: 09/14/18 11:09 Dose: 5,000 unit Hydralazine HCl (Apresoline -) 50 mg GT TID [facility] Last Admin: 09/14/18 05:32 Dose: Not Given Lactobacillus Acidophilus (Bacid -) 1 tab GT BID [facility] Last Admin: 09/14/18 11:10 Dose: 1 tab Levothyroxine Sodium 75 mcg/ (Levothyroxine Sodium 50 mcg) 125 mcg GT DAILY@ 0700 [facility] Loratadine (Claritin -) 10 mg GT DAILY [facility] Last Admin: 09/14/18 11:10 Dose: 10 mg Mirtazapine (Remeron -) 7.5 mg GT [facility] Last Admin: 09/13/18 22:29 Dose: 7.5 mg Mupirocin (Bactroban Ointment (For Decolonization) -) 1 applic NS BID [facility] Stop: 09/17/18 21:59 Last Admin: 09/14/18 11:10 Dose: 1 applic Pregabalin (Lyrica -) 50 mg PO Q8H [facility] Last Admin: 09/14/18 06:18 Dose: 50 mg Sertraline HCl (Zoloft -) 50 mg GT DAILY [facility] Last Admin: 09/14/18 11:09 Dose: 50 mg Sodium Chloride (Sodium Chloride Tablet -) 1 gm GT BID [facility] Last Admin: 09/14/18 11:11 Dose: 1 gm ASSESSMENT AND PLAN: Hyponatremia improving Multiple Sclerosis Chronic Respiratory Failure s/p Tracheostomy Functional Quadriplegia Atelectasis HTN Hypothyroidism - monitor sodium - fluid restriction - continue salt tabs - would monitor off antibiotics - f/u cultures - chest PT, pulmonary toilet - inhaled bronchodilators - trach collar during day, vent support at night - enteral feeds - DVT/GI prophylaxis - can monitor on vent floor
[2018-09-14 12:06] LABS: PLATELET COUNT 127 K/MM3 (134-434)
--- NOTE | 2018-09-14 12:33 | PN ---
Physical Exam: SUBJECTIVE: Patient seen and examined at the bedside. Overnight, patient had 3% saline stopped when sodium reached 131, patient had 800cc of D5W over 2 hours given and one time dose of DDAVP. Patient remained stable overnight. Today, she did not have any acute complaints and is stable for transfer to ventilator floor [facility]. OBJECTIVE: Vital Signs Period Temp Pulse Resp BP Sys/Morillo Pulse Ox Last 24 Hr 95.4 F-97 F 45-78 10-18 67-129/33-66 100-100 GENERAL: Awake, alert, and fully oriented, in no acute distress. HEAD: Normal with no signs of trauma. EYES: Pupils equal, round and reactive to light, extraocular movements intact, sclera anicteric, conjunctiva clear. EARS, NOSE, THROAT: nares patent, oropharynx clear without exudates. Moist mucous membranes. Trach site is intact with no visible erythema or discharge NECK: Decreased range of motion secondary to MS. supple without lymphadenopathy , JVD, or masses. LUNGS: Breath sounds equal, mild coarse breath sounds throughout, improved. No wheezes, and no crackles. No accessory muscle use. HEART: Regular rate and rhythm, normal S1 and S2 without murmur, rub or gallop. ABDOMEN: Soft, nontender, not distended, normoactive bowel sounds, no guarding, no rebound, no masses. 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 UPPER EXTREMITIES: 2+ pulses, warm, well-perfused. No cyanosis. No clubbing. Cap refill <2 seconds. No peripheral edema. LOWER EXTREMITIES: 2+ pulses, warm, well-perfused. No calf tenderness. No peripheral edema. NEUROLOGICAL: Cranial nerves II-XII intact. No dysarthria. 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 PSYCHIATRIC: Cooperative. Good eye contact. Mildly anxious mood and affect. SKIN: Warm, dry, normal turgor, no rashes or lesions noted. Laboratory Results - last 24 hr 09/13/18 09/13/18 09/13/18 12:20 18:30 21:10 WBC RBC Hgb Hct MCV MCH MCHC RDW Plt Count MPV Absolute Neuts (auto) Neutrophils % Lymphocytes % Monocytes % Eosinophils % Basophils % Nucleated RBC % Sodium 120 L 127 L 131 L Potassium Chloride Carbon Dioxide Anion Gap BUN Creatinine Est GFR (CKD-EPI)AfAm Est GFR (CKD-EPI)NonAf Random Glucose Calcium Magnesium Ferritin Total Bilirubin AST ALT Alkaline Phosphatase Total Protein Albumin Carbamazepine Blood Type Antibody Screen Crossmatch 09/14/18 09/14/18 09/14/18 05:50 05:50 05:50 WBC 2.7 L RBC 2.17 L Hgb 6.9 L* Hct 20.7 L MCV 95.7 MCH 31.7 MCHC 33.1 RDW 16.5 H Plt Count 98 L MPV 9.2 Absolute Neuts (auto) Neutrophils % Lymphocytes % Monocytes % Eosinophils % Basophils % Nucleated RBC % Sodium 129 L Potassium 4.0 Chloride 92 L Carbon Dioxide 32 Anion Gap 6 L BUN 22.3 H Creatinine 0.4 L Est GFR (CKD-EPI)AfAm 136.86 Est GFR (CKD-EPI)NonAf 118.08 Random Glucose 104 Calcium 7.9 L Magnesium 2.2 Ferritin 953.6 H Total Bilirubin 0.2 AST 17 ALT 27 Alkaline Phosphatase 206 H Total Protein 5.9 L Albumin 1.9 L Carbamazepine 7.7 Blood Type Antibody Screen Crossmatch 09/14/18 09/14/18 09/14/18 07:51 10:59 10:59 WBC 4.0 RBC 2.49 L Hgb 7.9 L Hct 23.5 L MCV 94.3 MCH 31.7 MCHC 33.6 RDW 16.4 H Plt Count 127 L D MPV 9.1 Absolute Neuts (auto) 2.6 Neutrophils % 65.7 Lymphocytes % 12.3 D Monocytes % 12.0 H D Eosinophils % 9.7 H D Basophils % 0.3 Nucleated RBC % 0 Sodium 127 L Potassium Chloride Carbon Dioxide Anion Gap BUN Creatinine Est GFR (CKD-EPI)AfAm Est GFR (CKD-EPI)NonAf Random Glucose Calcium Magnesium Ferritin Total Bilirubin AST ALT Alkaline Phosphatase Total Protein Albumin Carbamazepine Blood Type O POSITIVE Antibody Screen Negative Crossmatch See Detail Active Medications Generic Name Dose Route Start Last Admin Trade Name Freq PRN Reason Stop Dose Admin Albuterol/Ipratropium 1 amp 09/12/18 18:48 09/13/18 21:35 Duoneb - NEB 1 amp Q6H PRN Administration SHORT OF BREATH/WHEEZING Amino Acids 30 ml 09/13/18 08:00 09/14/18 09:45 Prosource No Carb Liquid Pkt GT 30 ml DAILY@0800 CATHERINE Administration Amlodipine Besylate 2.5 mg 09/14/18 11:30 Norvasc - GT DAILY [facility] Ascorbic Acid 500 mg 09/13/18 10:00 09/14/18 11:10 Vitamin C - GT 500 mg DAILY [facility] Administration Carbamazepine 200 mg 09/13/18 08:00 09/14/18 09:00 Tegretol - GT 200 mg TIDCM CATHERINE Administration Chlorhexidine Gluconate 1 applic 09/12/18 22:00 09/13/18 23:33 Hibiclens For Decolonization - TP 1 applic HS [facility]ERINE Administration Clonazepam 0.5 mg 09/12/18 22:00 09/13/18 22:31 Klonopin - GT 0.5 mg HS [facility]ERINE Administration Heparin Sodium (Porcine) 5,000 unit 09/12/18 22:00 09/14/18 11:09 Heparin - SQ 5,000 unit BID [facility] Administration Hydralazine HCl 50 mg 09/12/18 22:00 09/14/18 05:32 Apresoline - GT Not Given TID [facility]INE Lactobacillus Acidophilus 1 tab 09/12/18 22:00 09/14/18 11:10 Bacid - GT 1 tab BID [facility]ERINE Administration Levothyroxine Sodium 75 mcg/ 125 mcg 09/14/18 10:39 Levothyroxine Sodium 50 mcg GT DAILY@0700 [facility] Loratadine 10 mg 09/13/18 10:00 09/14/18 11:10 Claritin - GT 10 mg DAILY [facility] Administration Mirtazapine 7.5 mg 09/12/18 22:00 09/13/18 22:29 Remeron - GT 7.5 mg HS [facility]ERINE Administration Mupirocin 1 applic 09/12/18 22:00 09/14/18 11:10 Bactroban Ointment (For Decolonization) - NS 09/17/18 21:59 1 applic BID CATHERINE Administration Pregabalin 50 mg 09/13/18 22:00 09/14/18 06:18 Lyrica - PO 50 mg Q8H CATHERINE Administration Sertraline HCl 50 mg 09/13/18 10:00 09/14/18 11:09 Zoloft - GT 50 mg DAILY [facility] Administration Sodium Chloride 1 gm 09/12/18 22:00 09/14/18 11:11 Sodium Chloride Tablet - GT 1 gm BID [facility] Administration ASSESSMENT/PLAN: Geetha Wood is a 53 year old female with a past medical history of MS, functional quadreipelgia, HTN, HLD, trigeminal neuralgia, neurogenic bladder, anemia, hypothyroidism who is admitted to the ICU with hyponatremia for continued monitoring of neurologic status. Hyponatremia Multiple Sclerosis HTN HLD Neurogenic bladder Trigeminal neuralgia UTI NEUROLOGIC - stable - patient is alert and awake and following commands - neurochecks q2h - continue home carbamazepine 200mg tid for trigeminal neuralgia, reassess as medication may cause SIADH - Dr. Conroy consulted, recs appreciated CARDIOLOGY - home amlodipine 2.5mg - continue home hydralazine 50mg tid RESPIRATORY - monitor trach site for increased secretions - oxygen therapy through trach collar - Duoneb q6h prn RENAL - patient with a history of hyponatremia secondary to volume depletion and SIADH - Na improved to 131, today morning labs show Na 129, currently 127 - continue with home sodium chloride tabs - Sodium checks q6h for sodium correction - goal to not correct sodium greater than 12mmol/day - avoid rapid corrections especially in setting of demyelinating disorder MS - serum osmolarity low, true hyponatremia - Urine sodium high 67, urine osms 465>100, likely SIADH as patient not on diuretics - serum uric acid 1.2, low, indicating likely SIADH - fluid restriction in the setting of SIADH to 500cc of fluid daily - patient on carbamazepine and sertraline, both hyponatremia inducing medications, will evaluate the need for and dosing of medications and relationship to hyponatremia. Note by Dr. Conroy noted to continue carbamazepine in the setting of chronic hyponatremia GASTROINTESTINAL - stable GENITOURINARY - stable INFECTIOUS DISEASE - urine culture contaminated - sputum culture show non lactose fermeters - blood culture negative, unable to obtain cultures prior to initiating antibiotics due to poor venous access - UA showed 3+ LE, neg nitrites, 2944 WBC - UA done at PCP office last week negative for infection as per family - patient asymptomatic, no AMS, WBC - Zosyn discontinued, monitor off antibiotics - ID consulted recs appreciated ENDOCRINE - TSH level elevated, T4 within normal limits likely unresponsive in setting of elevated TSH - required increase of Synthroid to 125mcg daily HEMATOLOGY - morning labs showed Hgb 6.9 - repeat showed Hgb 7.9 - 1U of blood on hold - continue to monitor and transfuse as needed - FOBT to evaluate for GI bleed MUSCULOSKELETAL - patient with implanted baclofen pump for spasticity - bedside PT PSYCHIATRY - continue home remeron - continue home sertraline, reassess as medication may cause SIADH F/E/N - fluid restriction of 500cc per day - hyponatremia correcting with fluids and sodium chloride tablet - tube feeds 42ml/hr with 15ml NS flushes - dietary recommendation as above with addition of Prosource LINES - R wrist 22 inserted 09/12 - R hand 22 inserted 09/13 PROPHYLAXIS - heparin 5000 mg bid CODE - full code DISPO - continue to monitor in ICU CASE DISCUSSED WITH DR. GOLDMAN AND PRIMARY TEAM JACOB ALEGRIA DO - PGY-1 INTERNAL MEDICINE Problem List - Problems (1) Functional quadriplegia Code(s): R53.2 - FUNCTIONAL QUADRIPLEGIA (2) HTN (hypertension) Code(s): I10 - ESSENTIAL (PRIMARY) HYPERTENSION (3) Hyponatremia Code(s): E87.1 - HYPO-OSMOLALITY AND HYPONATREMIA (4) Hypothyroid Code(s): E03.9 - HYPOTHYROIDISM, UNSPECIFIED Visit type - Emergency Visit Emergency Visit: No - New Patient This patient is new to me today: No - Critical Care Critical Care patient: Yes Total Critical Care Time (in minutes): 38 Critical Care Statement: The care of this patient involved high complexity decision making to prevent further life threatening deterioration of the patient 's condition and/or to evaluate & treat vital organ system(s) failure or risk of failure. ATTENDING PHYSICIAN STATEMENT I saw and evaluated the patient. I reviewed the resident's note and discussed the case with the resident. I agree with the resident's findings and plan as documented. SUBJECTIVE: OBJECTIVE: ASSESSMENT AND PLAN:
--- NOTE | 2018-09-14 13:29 | PN ---
Progress Note (short form) - Note Progress Note: Renal follow up for hyponatremia Pt seen and examined in the ICU awake and alert no acute complaints no confusion, lethargy, weakness s/p hypertonic saline yesterday Vital Signs Temperature 95.4 F L 09/14/18 08:00 Pulse Rate 61 09/14/18 10:00 Respiratory Rate 8 L 09/14/18 10:00 Blood Pressure 112/45 L 09/14/18 10:00 O2 Sat by Pulse Oximetry (%) 100 09/14/18 09:00 Intake & Output 09/11/18 09/12/18 09/13/18 09/14/18 23:59 23:59 23:59 23:59 Intake Total 620 1734 Output Total 403 930 3350 Balance -300 -130 -366 Weight 68.209 kg 68.039 kg 68.663 kg NAD on trach collar RRR, no M/R CTA, no rales or wheeze soft NT/ND no LE or sacral edema CBC, BMP 09/14/18 10:59 09/14/18 10:59 Current Medications Albuterol/Ipratropium (Duoneb -) 1 amp NEB Q6H PRN PRN Reason: SHORT OF BREATH/WHEEZING Last Admin: 09/13/18 21:35 Dose: 1 amp Amino Acids (Prosource No Carb Liquid Pkt) 30 ml GT DAILY@0800 [facility] Last Admin: 09/14/18 09:45 Dose: 30 ml Amlodipine Besylate (Norvasc -) 2.5 mg GT DAILY [facility] Ascorbic Acid (Vitamin C -) 500 mg GT DAILY [facility] Last Admin: 09/14/18 11:10 Dose: 500 mg Carbamazepine (Tegretol -) 200 mg GT TIDCM [facility] Last Admin: 09/14/18 09:00 Dose: 200 mg Chlorhexidine Gluconate (Hibiclens For Decolonization -) 1 applic TP HS [facility] Last Admin: 09/13/18 23:33 Dose: 1 applic Clonazepam (Klonopin -) 0.5 mg GT HS [facility] Last Admin: 09/13/18 22:31 Dose: 0.5 mg Heparin Sodium (Porcine) (Heparin -) 5,000 unit SQ BID [facility] Last Admin: 09/14/18 11:09 Dose: 5,000 unit Hydralazine HCl (Apresoline -) 50 mg GT TID [facility] Last Admin: 09/14/18 05:32 Dose: Not Given Lactobacillus Acidophilus (Bacid -) 1 tab GT BID [facility] Last Admin: 09/14/18 11:10 Dose: 1 tab Levothyroxine Sodium 75 mcg/ (Levothyroxine Sodium 50 mcg) 125 mcg GT DAILY@ 0700 [facility] Loratadine (Claritin -) 10 mg GT DAILY [facility] Last Admin: 09/14/18 11:10 Dose: 10 mg Mirtazapine (Remeron -) 7.5 mg GT HS [facility] Last Admin: 09/13/18 22:29 Dose: 7.5 mg Mupirocin (Bactroban Ointment (For Decolonization) -) 1 applic NS BID [facility] Stop: 09/17/18 21:59 Last Admin: 09/14/18 11:10 Dose: 1 applic Pregabalin (Lyrica -) 50 mg PO Q8H [facility] Last Admin: 09/14/18 06:18 Dose: 50 mg Sertraline HCl (Zoloft -) 50 mg GT DAILY [facility] Last Admin: 09/14/18 11:09 Dose: 50 mg Sodium Chloride (Sodium Chloride Tablet -) 1 gm GT BID [facility] Last Admin: 09/14/18 11:11 Dose: 1 gm 53 year old woman with history of multiple sclerosis, respiratory failure on trach, hx of SIADH, neurogenic bladder who presented from home with increased respiratory secretions and found to have hyponatremia with Na of 116. #Hyponatremia secondary to SIADH vs. intravascular volume depletion-less likely #Increased respiratory secretions #Anemia #Multiple sclerosis #Chronic respiratory failure with trach Serum Na is now improved s/p hypertonic slaine and D5W/DDAVP for overcorrection no further indication for hypertonic saline check Na Q8h, maintain fluid restriction and sodium tabs BID Trend H/H, transfuse as per ICU team continue supportive care Tyshawn Liriano DO
--- NOTE | 2018-09-14 15:20 | CONSULT ---
Consultation: Heme/Onc HISTORY OF PRESENT ILLNESS: Ms. Geetha Wood is a 53 year old female with a past medical history of advanced MS (30 years), on trach collar with vent at night, 2L home O2, with G- tube, chronic hyponatremia, hypothyroidism, trigeminal neuralgia, recurrent UTI , wheelchair bound, Anemia, who presented to the ED with her mother after having an increased amount of secretions from her trach site over the weekend. The family contacted Dr. Lopez and patient was advised to go to the ED where the patient was found to have hyponatremia at 116. Patient is s/p hypertonic saline and sodium level is slowly improving. This AM patient was found to have a Hgb level of 6.9 and PLT 98. Repeat CBC a few hours later revealed a Hgb of 7.9 and PLT 127. Patient currently has no complaints. She denies fever, chills, night sweats, chest pain, headache, wheezes, cough. Social: Denies tobacco use, alcohol, drugs Family hx: no bleeding disorders, no malignancies. Never had a colonoscopy REVIEW OF SYSTEMS: CONSTITUTIONAL: Absent: fever, chills, diaphoresis, generalized weakness, malaise, loss of appetite, weight change HEENT: Absent: rhinorrhea, nasal congestion, throat pain, throat swelling, difficulty swallowing, mouth swelling, ear pain, eye pain, visual changes CARDIOVASCULAR: Absent: chest pain, syncope, palpitations, irregular heart rate, lightheadedness , peripheral edema RESPIRATORY: Absent: cough, shortness of breath, dyspnea with exertion, orthopnea, wheezing, stridor, hemoptysis GASTROINTESTINAL: Absent: abdominal pain, abdominal distension, nausea, vomiting, diarrhea, constipation, melena, hematochezia GENITOURINARY: Absent: dysuria, frequency, urgency, hesitancy, hematuria, flank pain, genital pain MUSCULOSKELETAL: Absent: myalgia, arthralgia, joint swelling, back pain, neck pain SKIN: Absent: rash, itching, pallor HEMATOLOGIC/IMMUNOLOGIC: Absent: easy bleeding, easy bruising, lymphadenopathy, frequent infections ENDOCRINE: Absent: unexplained weight gain, unexplained weight loss, heat intolerance, cold intolerance PHYSICAL EXAMINATION Vital Signs - 24 hr 09/13/18 09/13/18 09/13/18 16:00 17:50 20:00 Temperature 96.8 F L Pulse Rate 78 72 67 Respiratory 18 18 14 Rate Blood Pressure 111/56 L 129/62 97/37 L O2 Sat by Pulse Oximetry (%) 09/13/18 09/13/18 09/14/18 20:45 22:00 00:00 Temperature 96.2 F L Pulse Rate 60 53 L Respiratory 14 12 Rate Blood Pressure 83/33 L 77/43 L O2 Sat by Pulse 100 Oximetry (%) 09/14/18 09/14/18 09/14/18 00:27 01:00 02:00 Temperature 95.4 F L Pulse Rate 50 L 48 L Respiratory 12 12 12 Rate Blood Pressure 71/37 L 73/36 L O2 Sat by Pulse Oximetry (%) 09/14/18 09/14/18 09/14/18 03:10 03:25 04:00 Temperature Pulse Rate 47 L 45 L Respiratory 12 12 12 Rate Blood Pressure 77/39 L 67/33 L O2 Sat by Pulse Oximetry (%) 09/14/18 09/14/18 09/14/18 05:00 06:00 06:24 Temperature 95.4 F L Pulse Rate 52 L 50 L Respiratory 12 12 13 Rate Blood Pressure 76/39 L 89/52 L O2 Sat by Pulse Oximetry (%) 09/14/18 09/14/18 09/14/18 08:00 09:00 10:00 Temperature 95.4 F L Pulse Rate 61 Respiratory 14 10 8 L Rate Blood Pressure 86/53 L 112/45 L O2 Sat by Pulse 100 Oximetry (%) 09/14/18 09/14/18 12:00 14:00 Temperature Pulse Rate 51 L 49 L Respiratory 10 12 Rate Blood Pressure 90/39 L 102/47 L O2 Sat by Pulse Oximetry (%) GENERAL: Awake, alert, and fully oriented, in no acute distress. EYES: Pupils equal, round and reactive to light, extraocular movements intact, sclera anicteric, conjunctiva clear. EARS, NOSE, THROAT:oropharynx clear without exudates, thrush. Moist mucous membranes. Trach in place no redness or discharge NECK: supple without lymphadenopathy, JVD, or masses. LUNGS: course breath sounds HEART: Regular rate and rhythm, normal S1 and S2 without murmur, rub or gallop. ABDOMEN: Soft, nontender, not distended, normoactive bowel sounds, no guarding, no rebound, no masses. MUSCULOSKELETAL: contracted extremities, flaccid paralysis LOWER EXTREMITIES: 2+ pulses, warm, well-perfused. No calf tenderness. No peripheral edema. NEUROLOGICAL: Flaccid paralysis in extremities. PSYCHIATRIC: Cooperative. Good eye contact. Mildly anxious mood and affect. Laboratory Results - last 24 hr 09/13/18 09/13/18 09/14/18 18:30 21:10 05:50 WBC RBC Hgb Hct MCV MCH MCHC RDW Plt Count MPV Absolute Neuts (auto) Neutrophils % Lymphocytes % Monocytes % Eosinophils % Basophils % Nucleated RBC % Sodium 127 L 131 L Potassium Chloride Carbon Dioxide Anion Gap BUN Creatinine Est GFR (CKD-EPI)AfAm Est GFR (CKD-EPI)NonAf Random Glucose Calcium Magnesium Ferritin Total Bilirubin AST ALT Alkaline Phosphatase Total Protein Albumin Carbamazepine 7.7 Blood Type Antibody Screen Crossmatch 09/14/18 09/14/18 09/14/18 05:50 05:50 07:51 WBC 2.7 L RBC 2.17 L Hgb 6.9 L* Hct 20.7 L MCV 95.7 MCH 31.7 MCHC 33.1 RDW 16.5 H Plt Count 98 L MPV 9.2 Absolute Neuts (auto) Neutrophils % Lymphocytes % Monocytes % Eosinophils % Basophils % Nucleated RBC % Sodium 129 L Potassium 4.0 Chloride 92 L Carbon Dioxide 32 Anion Gap 6 L BUN 22.3 H Creatinine 0.4 L Est GFR (CKD-EPI)AfAm 136.86 Est GFR (CKD-EPI)NonAf 118.08 Random Glucose 104 Calcium 7.9 L Magnesium 2.2 Ferritin 953.6 H Total Bilirubin 0.2 AST 17 ALT 27 Alkaline Phosphatase 206 H Total Protein 5.9 L Albumin 1.9 L Carbamazepine Blood Type O POSITIVE Antibody Screen Negative Crossmatch See Detail 09/14/18 09/14/18 10:59 10:59 WBC 4.0 RBC 2.49 L Hgb 7.9 L Hct 23.5 L MCV 94.3 MCH 31.7 MCHC 33.6 RDW 16.4 H Plt Count 127 L D MPV 9.1 Absolute Neuts (auto) 2.6 Neutrophils % 65.7 Lymphocytes % 12.3 D Monocytes % 12.0 H D Eosinophils % 9.7 H D Basophils % 0.3 Nucleated RBC % 0 Sodium 127 L Potassium Chloride Carbon Dioxide Anion Gap BUN Creatinine Est GFR (CKD-EPI)AfAm Est GFR (CKD-EPI)NonAf Random Glucose Calcium Magnesium Ferritin Total Bilirubin AST ALT Alkaline Phosphatase Total Protein Albumin Carbamazepine Blood Type Antibody Screen Crossmatch Active Medications Generic Name Dose Route Start Last Admin Trade Name Carmen PRN Reason Stop Dose Admin Albuterol/Ipratropium 1 amp 09/12/18 18:48 09/13/18 21:35 Duoneb - NEB 1 amp Q6H PRN Administration SHORT OF BREATH/WHEEZING Amino Acids 30 ml 09/13/18 08:00 09/14/18 09:45 Prosource No Carb Liquid Pkt GT 30 ml DAILY@0800 [facility]ERINE Administration Amlodipine Besylate 2.5 mg 09/14/18 11:30 09/14/18 12:30 Norvasc - GT 2.5 mg DAILY [facility] Administration Ascorbic Acid 500 mg 09/13/18 10:00 09/14/18 11:10 Vitamin C - GT 500 mg DAILY [facility] Administration Carbamazepine 200 mg 09/13/18 08:00 09/14/18 12:00 Tegretol - GT 200 mg TIDCM [facility] Administration Chlorhexidine Gluconate 1 applic 09/12/18 22:00 09/13/18 23:33 Hibiclens For Decolonization - TP 1 applic HS [facility] Administration Clonazepam 0.5 mg 09/12/18 22:00 09/13/18 22:31 Klonopin - GT 0.5 mg HS [facility] Administration Heparin Sodium (Porcine) 5,000 unit 09/12/18 22:00 09/14/18 11:09 Heparin - SQ 5,000 unit BID [facility] Administration Hydralazine HCl 50 mg 09/12/18 22:00 09/14/18 05:32 Apresoline - GT Not Given TID [facility] Lactobacillus Acidophilus 1 tab 09/12/18 22:00 09/14/18 11:10 Bacid - GT 1 tab BID [facility]ERINE Administration Levothyroxine Sodium 75 mcg/ 125 mcg 09/14/18 10:39 Levothyroxine Sodium 50 mcg GT DAILY@0700 [facility] Loratadine 10 mg 09/13/18 10:00 09/14/18 11:10 Claritin - GT 10 mg DAILY [facility] Administration Mirtazapine 7.5 mg 09/12/18 22:00 09/13/18 22:29 Remeron - GT 7.5 mg HS [facility] Administration Mupirocin 1 applic 09/12/18 22:00 09/14/18 11:10 Bactroban Ointment (For Decolonization) - NS 09/17/18 21:59 1 applic BID [facility] Administration Pregabalin 50 mg 09/13/18 22:00 09/14/18 06:18 Lyrica - PO 50 mg Q8H [facility] Administration Sertraline HCl 50 mg 09/13/18 10:00 09/14/18 11:09 Zoloft - GT 50 mg DAILY [facility] Administration Sodium Chloride 1 gm 09/12/18 22:00 09/14/18 11:11 Sodium Chloride Tablet - GT 1 gm BID [facility] Administration ASSESSMENT/PLAN: #Pancytopenia #Eosinophilia -Pancytopenia likely multifactorial from Anemia of chronic disease with hypothyroidism vs infectious process vs medications (including Carbamazepine). -Recommend repeating TSH and adjusting dose if needed -Eosinophilia could be from medications (including carbamazepine) -Flow Cytometry, FISH, cytogenetics ordered, OSEI, folic -monitor CBC Dispo: We will continue to follow the patient. Thank you for this consultative opportunity. Visit type - Emergency Visit Emergency Visit: Yes ED Registration Date: 09/12/18 Care time: The patient presented to the Emergency Department on the above date and was hospitalized for further evaluation of their emergent condition. - New Patient This patient is new to me today: Yes Date on this admission: 09/15/18 - Critical Care Critical Care patient: No ATTENDING PHYSICIAN STATEMENT I saw and evaluated the patient. I reviewed the resident's note and discussed the case with the resident. I agree with the resident's findings and plan as documented. SUBJECTIVE: OBJECTIVE: ASSESSMENT AND PLAN:
--- NOTE | 2018-09-14 19:13 | PN ---
Teaching Attending Note Name of Resident: Luis Felipe Norris ATTENDING PHYSICIAN STATEMENT I saw and evaluated the patient. I reviewed the resident's note and discussed the case with the resident. I agree with the resident's findings and plan as documented. SUBJECTIVE: Patient seen and examined Geetha Wood is a 53 year old female with a past medical history of MS ( 30 years), requiring G-tube feedings ,chronic hyponatremia, hypothyroidism, trigeminal neuralgia, with pancytopenia Initially presented with hyponatremia requiring hypertonic saline. Na+ improved Initial fall in Hb/Hct ? dilutional , with added components of hypothyroidism and infection (RLL infiltrate) Last Vital Signs Temp Pulse Resp BP Pulse Ox 95.4 F L 49 L 12 102/47 L 100 09/14/18 08:00 09/14/18 14:00 09/14/18 14:00 09/14/18 14:00 09/14/18 09:00 HEENT: right ptosis, ANTONI Oropharynx: No thrush, No mucositis Neck: trach Nodes: Without adenopathy Breasts: Without masses Cor: RSR, No murmurs, No gallops Lungs: bronchial breath sounds Abd: PEG, baclofen pump-RLQ Ext:No significant edema Skin: No rashes, Integument intact Flaccid extremities CBC, BMP 09/14/18 10:59 09/14/18 17:00 Current Medications Generic Name Dose Route Start Last Admin Trade Name Freq PRN Reason Stop Dose Admin Albuterol/Ipratropium 1 amp 09/14/18 16:54 Duoneb - NEB Q6H PRN SHORT OF BREATH/WHEEZING Amino Acids 30 ml 09/15/18 08:00 Prosource No Carb Liquid Pkt GT DAILY@0800 [facility] Amlodipine Besylate 2.5 mg 09/15/18 10:00 Norvasc - GT DAILY [facility] Ascorbic Acid 500 mg 09/15/18 10:00 Vitamin C - GT DAILY [facility] Carbamazepine 200 mg 09/14/18 17:30 Tegretol - GT TIDCM [facility] Clonazepam 0.5 mg 09/14/18 22:00 Klonopin - GT HS [facility] Heparin Sodium (Porcine) 5,000 unit 09/14/18 22:00 Heparin - SQ BID [facility] Hydralazine HCl 50 mg 09/14/18 22:00 Apresoline - GT TID [facility] Lactobacillus Acidophilus 1 tab 09/14/18 22:00 Bacid - GT BID [facility] Levothyroxine Sodium 75 mcg/ 125 mcg 09/15/18 07:00 Levothyroxine Sodium 50 mcg GT DAILY@0700 [facility] Loratadine 10 mg 09/15/18 10:00 Claritin - GT DAILY [facility] Mirtazapine 7.5 mg 09/14/18 22:00 Remeron - GT HS [facility] Pregabalin 50 mg 09/14/18 22:00 Lyrica - PO Q8H [facility] Sertraline HCl 50 mg 09/15/18 10:00 Zoloft - GT DAILY [facility] Sodium Chloride 1 gm 09/14/18 22:00 Sodium Chloride Tablet - GT BID [facility] Impression: Pancytopenia Respiratory failure Hyponatremia SIADH MS RLLinfiltrate Suspect pancytopenia -multifactorial with elevated ferritin, low TIBC compatible with chronic disease, hypothyroidsim, with elevated TSH infection, ? component of medications contributing with elevated eosinophils , low WBC count. Would tweak thyroid meds, ? antibiotics after reculturing urine , Would check OSEI, IgE, flow cytometry, B-12, folate levels as treatable entities . ASSESSMENT AND PLAN:
[2018-09-14] MEDS: clonazePAM 0.5 MG TABLET GT SCH (22:16)
[2018-09-14] MEDS: MIRTAZAPINE 15 MG TABLET (FP) GT SCH (22:17)
[2018-09-15] MEDS ORDERED: ACETAMINOPHEN 650 MG/20.3 ML ORAL SOLUTION (CUPS) GT ONE (03:30)
[2018-09-15 04:09] LABS: SERUM IRON SATURATION 33 % (15-55); TOTAL IRON BINDING CAPACITY 208 ug/dL (250-450)
[2018-09-15] MEDS ORDERED: LEVOTHYROXINE NA 50 MCG TABLET (FP) ONE (06:02)
[2018-09-15] MEDS ORDERED: LEVOTHYROXINE NA 75 MCG TABLET (FP) ONE (06:02)
[2018-09-15] MEDS: LEVOTHYROXINE GT SCH (06:04)
[2018-09-15] MEDS: hydrALAZINE HCL 50 MG TABLET (FP) GT SCH ×4 (06:04→23:47)
[2018-09-15] MEDS: PREGABALIN 50 MG CAPSULE PO SCH ×3 (06:04→23:50)
[2018-09-15] MEDS ORDERED: PT OWN MED DRAWER 7, Y5N ONE ×3 (09:10→23:52)
[2018-09-15] MEDS: HEPARIN NA (PORCINE) 5,000 UNITS/ML 1ML VIAL SQ SCH ×2 (09:39→23:51)
[2018-09-15] MEDS: AMINO ACIDS/PROTEIN HYDROLYS 30 ML LIQUID.PKT GT SCH (09:40)
[2018-09-15] MEDS: LACTOBACILLUS ACIDOPHILUS 1 TABLET GT SCH ×2 (09:40→23:50)
[2018-09-15] MEDS: LORATADINE 10 MG TABLET GT SCH (09:40)
[2018-09-15] MEDS: SERTRALINE HCL 50 MG TABLET (FP) GT SCH (09:40)
[2018-09-15] MEDS: ASCORBIC ACID 500 MG TABLET (FP) GT SCH (09:40)
[2018-09-15] MEDS: carBAMazepine 200 MG TABLET GT SCH ×3 (09:41→18:10)
[2018-09-15] MEDS: SODIUM CHLORIDE 1 GM TABLET GT SCH ×2 (09:41→23:52)
[2018-09-15 10:52] LABS: BASO % 0.2 % (0-2.0); EOS % 5.6 % (0-4.5); HEMATOCRIT 23.3 % (32.4-45.2); HEMOGLOBIN 7.8 GM/dL (10.7-15.3); LYMPH % 8.1 % (8-40); MCH 31.6 pg (25.7-33.7); MCHC 33.4 g/dl (32.0-36.0); MEAN CELL VOLUME 94.6 fl (80-96); MEAN PLT VOLUME 9.4 fl (7.5-11.1); MONO % 5.7 % (3.8-10.2); NEUT % 80.4 % (42.8-82.8); RBC 2.47 M/mm3 (3.60-5.2); RDW 16.5 % (11.6-15.6); WHITE BLOOD COUNT 6.1 K/mm3 (4.0-10.0)
[2018-09-15 11:25] LABS: PLATELET COUNT 135 K/MM3 (134-434)
--- NOTE | 2018-09-15 11:43 | PN ---
Progress Note, Physician Chief Complaint: SIADH Hyponatremia Multiple Sclerosis Functional Quadriplegia Anemia History of Present Illness: Previous notes and events reviewed awake and alert NAD Na 127 Hg 7.8 denies chest pain or SOB mechanically vented, PMV as tolerated - Current Medication List Current Medications: Active Medications Albuterol/Ipratropium (Duoneb -) 1 amp NEB Q6H PRN PRN Reason: SHORT OF BREATH/WHEEZING Amino Acids (Prosource No Carb Liquid Pkt) 30 ml GT DAILY@0800 [facility] Last Admin: 09/15/18 09:40 Dose: 30 ml Amlodipine Besylate (Norvasc -) 2.5 mg GT DAILY [facility] Ascorbic Acid (Vitamin C -) 500 mg GT DAILY [facility] Last Admin: 09/15/18 09:40 Dose: 500 mg Carbamazepine (Tegretol -) 200 mg GT TIDCM [facility] Last Admin: 09/15/18 09:41 Dose: 200 mg Clonazepam (Klonopin -) 0.5 mg GT HS [facility] Last Admin: 09/14/18 22:16 Dose: 0.5 mg Heparin Sodium (Porcine) (Heparin -) 5,000 unit SQ BID [facility] Last Admin: 09/15/18 09:39 Dose: 5,000 unit Hydralazine HCl (Apresoline -) 50 mg GT TID [facility] Last Admin: 09/15/18 06:30 Dose: Not Given Lactobacillus Acidophilus (Bacid -) 1 tab GT BID [facility] Last Admin: 09/15/18 09:40 Dose: 1 tab Levothyroxine Sodium 75 mcg/ (Levothyroxine Sodium 50 mcg) 125 mcg GT DAILY@ 0700 [facility] Last Admin: 09/15/18 06:04 Dose: 125 mcg Loratadine (Claritin -) 10 mg GT DAILY [facility] Last Admin: 09/15/18 09:40 Dose: 10 mg Mirtazapine (Remeron -) 7.5 mg GT HS [facility] Last Admin: 09/14/18 22:17 Dose: 7.5 mg Pregabalin (Lyrica -) 50 mg PO Q8H [facility] Last Admin: 09/15/18 06:04 Dose: 50 mg Sertraline HCl (Zoloft -) 50 mg GT DAILY [facility] Last Admin: 09/15/18 09:40 Dose: 50 mg Sodium Chloride (Sodium Chloride Tablet -) 1 gm GT BID [facility] Last Admin: 09/15/18 09:41 Dose: 1 gm - Objective Vital Signs: Vital Signs Temperature 96.3 F L 09/15/18 07:36 Pulse Rate 79 09/15/18 08:30 Respiratory Rate 12 09/15/18 07:36 Blood Pressure 103/43 L 09/15/18 07:36 O2 Sat by Pulse Oximetry (%) 97 09/15/18 08:30 Constitutional: Yes: No Distress, Calm Eyes: Yes: Conjunctiva Clear HENT: Yes: Atraumatic Neck: Yes: Other (trach) Cardiovascular: Yes: Regular Rate and Rhythm Respiratory: Yes: Diminished, Mechanically Ventilated Gastrointestinal: Yes: Normal Bowel Sounds, Soft, Other (Gtube) Genitourinary: Yes: Raza Present Musculoskeletal: Yes: Muscle Weakness Extremities: Yes: WNL Edema: No Neurological: Yes: Alert, Pre-Existing Deficit Psychiatric: Yes: Alert, Oriented Labs: CBC, BMP 09/15/18 09:20 09/14/18 17:00 INR, PTT INR 1.05 (0.83-1.09) 09/13/18 05:53 Microbiology 09/13/18 06:25 Sputum - Endotrachea Suction/Ventilator Gram Stain - Final 09/13/18 06:25 Sputum - Endotrachea Suction/Ventilator Sputum Culture - Preliminary Non Lactose Fermenting Gnb 09/13/18 05:53 Blood - Peripheral Venous Blood Culture - Preliminary NO GROWTH OBTAINED AFTER 48 HOURS, INCUBATION TO CONTINUE FOR 3 DAYS. 09/13/18 06:10 Blood - Peripheral Venous Blood Culture - Preliminary NO GROWTH OBTAINED AFTER 48 HOURS, INCUBATION TO CONTINUE FOR 3 DAYS. 09/12/18 19:20 Urine - Urine - Catheterized Urine Culture - Final Contaminated: Please Repeat Problem List - Problems (1) Acute on chronic respiratory failure with hypoxia and hypercapnia Assessment/Plan: -Pulm on board -mechanically ventilated -keep SpO2 >90% -bronchodilators Code(s): J96.21 - ACUTE AND CHRONIC RESPIRATORY FAILURE WITH HYPOXIA; J96.22 - ACUTE AND CHRONIC RESPIRATORY FAILURE WITH HYPERCAPNIA (2) Altered mental status Assessment/Plan: -resolved Code(s): R41.82 - ALTERED MENTAL STATUS, UNSPECIFIED (3) Anemia Assessment/Plan: -Hg 7.8 -hematology consult -monitor Hg daily -transfuse for Hg <7.0 to avoid fluid overload Code(s): D64.9 - ANEMIA, UNSPECIFIED Qualifiers: Other causes of anemia: other cause, not classified (4) Functional quadriplegia secondary to MS Assessment/Plan: -PT -fall precaution -reposition q2h Code(s): G35 - MULTIPLE SCLEROSIS; R53.2 - FUNCTIONAL QUADRIPLEGIA (5) HTN (hypertension) Assessment/Plan: -Norvasc -hold if SBP <100 and/or DBP <60 Code(s): I10 - ESSENTIAL (PRIMARY) HYPERTENSION (6) Hx of multiple sclerosis Assessment/Plan: -PT -fall precaution Code(s): Z86.69 - PERSONAL HISTORY OF DIS OF THE NERVOUS SYS AND SENSE ORGANS (7) Hyponatremia Assessment/Plan: -Na 127 -renal on board -Sodium Chloride tablet -monitor Na daily Code(s): E87.1 - HYPO-OSMOLALITY AND HYPONATREMIA (8) Hypothyroid Assessment/Plan: -Levothyroxine Code(s): E03.9 - HYPOTHYROIDISM, UNSPECIFIED (9) Multiple drug resistant organism (MDRO) culture positive Assessment/Plan: -contact precautions -BC neg -positive sputum culture Code(s): Z16.24 - RESISTANCE TO MULTIPLE ANTIBIOTICS Assessment/Plan see problem list dvt ppx
--- NOTE | 2018-09-15 12:06 | PN ---
Progress Note (short form) - Note Progress Note: Awake and alert on Trach collar. Voice is strong. Denies SOB. Intake & Output 09/12/18 09/13/18 09/14/18 09/15/18 23:59 23:59 23:59 23:59 Intake Total 620 1910 276 Output Total 937 168 4062 Balance -300 -130 -640 276 Weight 150 lb 6 oz 150 lb 151 lb 6 oz Last Vital Signs Temp Pulse Resp BP Pulse Ox 96.3 F L 79 12 103/43 L 97 09/15/18 07:36 09/15/18 08:30 09/15/18 07:36 09/15/18 07:36 09/15/18 08:30 Active Medications Albuterol/Ipratropium (Duoneb -) 1 amp NEB Q6H PRN PRN Reason: SHORT OF BREATH/WHEEZING Amino Acids (Prosource No Carb Liquid Pkt) 30 ml GT DAILY@0800 [facility] Last Admin: 09/15/18 09:40 Dose: 30 ml Amlodipine Besylate (Norvasc -) 2.5 mg GT DAILY [facility] Ascorbic Acid (Vitamin C -) 500 mg GT DAILY [facility] Last Admin: 09/15/18 09:40 Dose: 500 mg Carbamazepine (Tegretol -) 200 mg GT TIDCM [facility] Last Admin: 09/15/18 09:41 Dose: 200 mg Clonazepam (Klonopin -) 0.5 mg GT HS [facility] Last Admin: 09/14/18 22:16 Dose: 0.5 mg Heparin Sodium (Porcine) (Heparin -) 5,000 unit SQ BID [facility] Last Admin: 09/15/18 09:39 Dose: 5,000 unit Hydralazine HCl (Apresoline -) 50 mg GT TID [facility] Last Admin: 09/15/18 06:30 Dose: Not Given Lactobacillus Acidophilus (Bacid -) 1 tab GT BID [facility] Last Admin: 09/15/18 09:40 Dose: 1 tab Levothyroxine Sodium 75 mcg/ (Levothyroxine Sodium 50 mcg) 125 mcg GT DAILY@ 0700 [facility] Last Admin: 09/15/18 06:04 Dose: 125 mcg Loratadine (Claritin -) 10 mg GT DAILY [facility] Last Admin: 09/15/18 09:40 Dose: 10 mg Mirtazapine (Remeron -) 7.5 mg GT HS [facility] Last Admin: 09/14/18 22:17 Dose: 7.5 mg Pregabalin (Lyrica -) 50 mg PO Q8H [facility] Last Admin: 09/15/18 06:04 Dose: 50 mg Sertraline HCl (Zoloft -) 50 mg GT DAILY [facility] Last Admin: 09/15/18 09:40 Dose: 50 mg Sodium Chloride (Sodium Chloride Tablet -) 1 gm GT BID [facility] Last Admin: 09/15/18 09:41 Dose: 1 gm Gen: NAD on trach collar Heart: RRR Lung: decreased breath sounds at the bases Abd: soft, nontender Ext: no edema CBC Laboratory Results - last 24 hr 09/14/18 09/14/18 09/14/18 05:50 10:59 10:59 WBC 4.0 RBC 2.49 L Hgb 7.9 L Hct 23.5 L MCV 94.3 MCH 31.7 MCHC 33.6 RDW 16.4 H Plt Count 127 L D MPV 9.1 Absolute Neuts (auto) 2.6 Neutrophils % 65.7 Lymphocytes % 12.3 D Monocytes % 12.0 H D Eosinophils % 9.7 H D Basophils % 0.3 Nucleated RBC % 0 Sodium 127 L Iron 68 TIBC 208 L Iron Saturation 33 Unsaturated IBC 140 Serum Folate 09/14/18 09/15/18 09/15/18 17:00 09:20 09:20 WBC 6.1 RBC 2.47 L Hgb 7.8 L Hct 23.3 L MCV 94.6 MCH 31.6 MCHC 33.4 RDW 16.5 H Plt Count 135 MPV 9.4 Absolute Neuts (auto) 4.9 Neutrophils % 80.4 D Lymphocytes % 8.1 D Monocytes % 5.7 Eosinophils % 5.6 H Basophils % 0.2 Nucleated RBC % 0 Sodium 127 L Iron TIBC Iron Saturation Unsaturated IBC Serum Folate 19 H ASSESSMENT AND PLAN: Hyponatremia improving Multiple Sclerosis Chronic Respiratory Failure s/p Tracheostomy Functional Quadriplegia Atelectasis HTN Hypothyroidism - monitor sodium - fluid restriction - continue salt tabs - would monitor off antibiotics - f/u cultures - chest PT, pulmonary toilet - inhaled bronchodilators - trach collar during day, vent support at night - enteral feeds - DVT/GI prophylaxis Dr Fox
[2018-09-15] MEDS: amLODIPine BESYLATE 2.5 MG TABLET (FP) GT SCH (12:13)
--- NOTE | 2018-09-15 14:08 | CONSULT ---
Admitting History and Physical - Past Medical History EDITOR BOOK: Yes: Multiple Sclerosis (quadraplegia), Other (legally blind, trigeminal neuralgia -> baclofen pump) Cardiovascular: Yes: HTN, Hyperlipdemia Pulmonary: Yes: Pneumonia, Previously Intubated, Other. No: Asthma, Bronchitis , Cancer, COPD, Pulmonary Embolus, Pulmonary Fibrosis, Sleep Apnea Gastrointestinal: Yes: Constipation (chronic) Hepatobiliary: Yes: Cholelithiasis Renal/: Yes: Neurogenic Bladder ( neurogenic bladder, chronic perera catheter) ...LMP: 06/07/12 Heme/Onc: Yes: Anemia Infectious Disease: Yes: Other (pneumonia, uti treated by urologist) Musculoskeletal: Yes: Other (Quadraplegia) Dermatology: Yes: Other (chronic decubitus followed by wound care) - Past Surgical History Past Surgical History: Yes: Colonoscopy - Smoking History Smoking history: Current every day smoker Have you smoked in the past 12 months: No Aproximately how many cigarettes per day: 0 - Alcohol/Substance Use Hx Alcohol Use: No History of Substance Use: reports: None - Social History ADL: Support Services History of Recent Travel: No History - Admission Reason For Visit: HYPONATREMIA - Hearing Hearing: Normal Speech Evaluation - Communication Primary Language: MONEGASQUE Communication: Yes: Within Normal Limits Oral Expression Ability: Yes: No Impairment - Speech Production Able to Make Needs Known: Yes: WNL Intelligibility: Yes: WNL - Speech Characteristics Voice Loudness: Mildly Soft/Quiet Voice Pitch: Yes: Normal Voice Phonatory-based Quality: Yes: Breathy (secondary to mechanical vent) Speech Pattern: Normal Nasal Resonance: Normal Articulation: Yes: Imprecise (mild) Rate of Speech: Intact Voice, Other Observations: Yes: Progressively Weak Voice (mech vent, trach collar with PMV in place) Voice Comment: WFL for single words and phrases. - Language/Auditory Comprehension Follows: Yes: 1 Stage Simple Commands (WFL) Observation: Able to respond to yes/no queries: Yes, Yes/No Confusion: No, Comprehends Conversational Speech: Yes, Benefits from Slow Speech: No (not necessary), Benefits from Repetiton: No (not necessary), Benefits from Increased Volume of Speech: No (not necessary) - Language/Verbal Expression Able to Respond to Simple Queries: Yes: WNL Able to Communicate Wants and Needs: Yes: WNL Functional Communication Status: Yes: WNL Aware of Errors: Yes Attempts to Correct Errors: Yes Use of Gestures: No Written Expression: not examined Oral Expression: good for single words and phrases Reading Comprehension: not examined Calculations: not examined Attention: Yes: Intact - Memory/Perception intermediate accountant Memory: Yes: WNL Short Term Memory: Yes: WNL - Swallow Evaluation/Bedside Assessment Current Nutritional Intake: Dysphagia Pureed, Thin Liquids Oral Secretions: Yes: WFL Tracheostomy Present: Yes Patient on Ventilator: Yes Dentition: Yes: Adequate Facial Symmetry at Rest: Symmetrical Facial Symmetry on Retraction: Symmetrical Facial Movement: Controlled Sensation: Normal Facial Comment: within functional limits for speech and swallowing purposes. Jaw Position: Closed at Rest Against Resistance Opening: Normal Against Resistance Closing: Normal Pucker Lips: Normal Smile: Normal Lips, Comment: within functional limits for speech and swallowing purposes. Lingual Movement: Normal Lingual Speed of Movement: Normal Lingual Movement Strgth Against Opposition: Normal Lingual Movement Characteristics: Normal Lingual Comment: within functional limits for speech and swallowing purposes. Soft Palate Description: Normal Color Gag Reflex: Weak Bite Reflex: Present Velopharyngeal Movement: Reduced Elevation Laryngeal Elevation: Impaired Needs Assistance: Yes Rate of Intake: WFL Bolus Size: WFL Labial Seal: WFL Chewing: WFL Oral Prep Time: WFL A-P Transit: WFL Timing of Swallow: WFL Odynophagia: Pharyngeal Coughing/Throat Clear: No Change in Voice: No Other Findings/Remarks: 53 yo female seen at bedside for swallow eval to r/o dysphagia. PMH significant for advanced MS (30 years), on trach collar with vent, 2L home O2, with G-tube, chronic hyponatremia, hypothyroidism, trigeminal neuralgia, recurrent UTI, wheelchair bound, presenting with 2 days of increasing amounts of secretions requiring frequent suctioning. Pt communicates using PMV which is well tolerated. Current diet: pureed with thin liquids. Pt given PO trials of pureed, with assistance revealed, adequate bolus formation and A P transport with a timely pharyngeal swallow (1-2 second average). No change in voicing or respiration after the swallow. No evidence of bolus residue in trach tube. Thin liquid trials were unremarkable for aspiration at this time. Recommendations - Speech Evaluation, Impression/Plan Impression: Pt is able to tolerate pureed with thin liquids at bedside without s /s of aspiration at this time. PMV in place with adequate voicing. Custodial Goals: Tolerate the least restrictive solid and liquid consistencies without s/s of penetration / aspiration. Short Term Goals: Tolerate pureed solids and thin liquid without s/s of penetration / aspiration. - Dysphagia Impressions/Plan Swallowing Skills: Impaired Dysphagia Impressions: Minimal Impairment, Risk of Aspiration *Silent aspiration: cannot be R/O at bedside Dysphagia Treatment Plan: Small Bites, Safe Rate, 1/2 tsp. at a time, Elevate HOB during feed, Other (Monitor nutritional intake and pulmonary status. crush medications for ease of swallow.) Dysphagia Evaluation Summary: Continue pureed solids with thin liquids as tolerated. Observe standard aspiration precautions. Monitor respiratory system when using PMV. Results given to rn transitional and PCP via chart. - Recommendations Diet Consistency: Dysphagia Pureed Medication Administration: Crushed with applesauce Liquids: Thin Liquids
--- NOTE | 2018-09-15 14:43 | PN ---
Progress Note (short form) - Note Progress Note: Renal follow up for hyponatremia Pt seen and examined at the bedside noted to be hypothermic and mildly hypotensive pt is awake and alert and offers no acute complaints has perera in place Vital Signs Temperature 96.3 F L 09/15/18 07:36 Pulse Rate 79 09/15/18 08:30 Respiratory Rate 12 09/15/18 07:36 Blood Pressure 103/43 L 09/15/18 07:36 O2 Sat by Pulse Oximetry (%) 98 09/15/18 12:09 Intake & Output 09/12/18 09/13/18 09/14/18 09/15/18 23:59 23:59 23:59 23:59 Intake Total 620 1910 276 Output Total 827 951 8623 Balance -300 -130 -640 276 Weight 68.209 kg 68.039 kg 68.663 kg NAD on trach collar RRR, no M/R CTA, no rales or wheeze soft NT/ND no LE or sacral edema CBC, BMP 09/15/18 09:20 09/14/18 17:00 Current Medications Albuterol/Ipratropium (Duoneb -) 1 amp NEB Q6H PRN PRN Reason: SHORT OF BREATH/WHEEZING Amino Acids (Prosource No Carb Liquid Pkt) 30 ml GT DAILY@0800 [facility] Last Admin: 09/15/18 09:40 Dose: 30 ml Amlodipine Besylate (Norvasc -) 2.5 mg GT DAILY [facility] Last Admin: 09/15/18 12:13 Dose: Not Given Ascorbic Acid (Vitamin C -) 500 mg GT DAILY [facility] Last Admin: 09/15/18 09:40 Dose: 500 mg Carbamazepine (Tegretol -) 200 mg GT TIDCM [facility] Last Admin: 09/15/18 14:38 Dose: 200 mg Clonazepam (Klonopin -) 0.5 mg GT HS [facility] Last Admin: 09/14/18 22:16 Dose: 0.5 mg Heparin Sodium (Porcine) (Heparin -) 5,000 unit SQ BID [facility] Last Admin: 09/15/18 09:39 Dose: 5,000 unit Hydralazine HCl (Apresoline -) 50 mg GT TID [facility] Last Admin: 09/15/18 14:38 Dose: Not Given Lactobacillus Acidophilus (Bacid -) 1 tab GT BID [facility] Last Admin: 09/15/18 09:40 Dose: 1 tab Levothyroxine Sodium 75 mcg/ (Levothyroxine Sodium 50 mcg) 125 mcg GT DAILY@ 0700 [facility] Last Admin: 09/15/18 06:04 Dose: 125 mcg Loratadine (Claritin -) 10 mg GT DAILY [facility] Last Admin: 09/15/18 09:40 Dose: 10 mg Mirtazapine (Remeron -) 7.5 mg GT HS [facility] Last Admin: 09/14/18 22:17 Dose: 7.5 mg Pregabalin (Lyrica -) 50 mg PO Q8H [facility] Last Admin: 09/15/18 14:30 Dose: 50 mg Sertraline HCl (Zoloft -) 50 mg GT DAILY [facility] Last Admin: 09/15/18 09:40 Dose: 50 mg Sodium Chloride (Sodium Chloride Tablet -) 1 gm GT BID [facility] Last Admin: 09/15/18 09:41 Dose: 1 gm 53 year old woman with history of multiple sclerosis, respiratory failure on trach, hx of SIADH, neurogenic bladder who presented from home with increased respiratory secretions and found to have hyponatremia with Na of 116. #Hyponatremia secondary to SIADH vs. intravascular volume depletion-less likely #Increased respiratory secretions #Anemia #Multiple sclerosis #Chronic respiratory failure with trach no sodium value resulted for this morning, ordered BMP stat continue water restriction and salt tabs if IVF to be given for hypotension willl need to monitor Na to ensure that it does not downtrend Hgb improved, no transfusion given supportive care Tyshawn Liriano DO
[2018-09-15] MEDS ORDERED: SODIUM CHLORIDE 1,000 ML IV SCH (16:15)
[2018-09-15 17:31] LABS: BLOOD UREA NITROGEN 33.2 mg/dL (7-18); CALCIUM 8.2 mg/dL (8.5-10.1); CREATININE 0.5 mg/dL (0.55-1.3); POTASSIUM 4.9 mmol/L (3.5-5.1)
[2018-09-15] MEDS ORDERED: DEXTROSE 50%-WATER - 25 GM/50 ML VIAL IVPUSH ONE (17:49)
[2018-09-15] MEDS ORDERED: DEXTROSE 50%-WATER 25 GM/50 ML DISP.SYRIN ONE (18:06)
[2018-09-15] MEDS ORDERED: DEXTROSE 50%-WATER 25 GM/50 ML DISP.SYRIN IVPUSH ONE ×2 (18:15)
[2018-09-15] MEDS: MIRTAZAPINE 15 MG TABLET (FP) GT SCH (23:50)
[2018-09-15] MEDS: clonazePAM 0.5 MG TABLET GT SCH (23:50)
[2018-09-16] MEDS ORDERED: LEVOTHYROXINE NA 75 MCG TABLET (FP) ONE (06:30)
[2018-09-16] MEDS ORDERED: LEVOTHYROXINE NA 50 MCG TABLET (FP) ONE (06:30)
[2018-09-16] MEDS: hydrALAZINE HCL 50 MG TABLET (FP) GT SCH ×3 (06:46→23:08)
[2018-09-16] MEDS: PREGABALIN 50 MG CAPSULE PO SCH ×3 (06:47→23:01)
[2018-09-16] MEDS: LEVOTHYROXINE GT SCH (06:47)
[2018-09-16 07:45] LABS: BASO % 0.4 % (0-2.0); EOS % 3.3 % (0-4.5); HEMATOCRIT 22.7 % (32.4-45.2); HEMOGLOBIN 7.8 GM/dL (10.7-15.3); LYMPH % 18.4 % (8-40); MCH 32.4 pg (25.7-33.7); MCHC 34.3 g/dl (32.0-36.0); MEAN CELL VOLUME 94.6 fl (80-96); MEAN PLT VOLUME 9.5 fl (7.5-11.1); NEUT % 70.9 % (42.8-82.8); PLATELET COUNT 160 K/MM3 (134-434); RDW 16.5 % (11.6-15.6); WHITE BLOOD COUNT 6.2 K/mm3 (4.0-10.0)
[2018-09-16 08:30] LABS: ALBUMIN 2.3 g/dl (3.4-5.0); BILIRUBIN,TOTAL 0.3 mg/dL (0.2-1); BLOOD UREA NITROGEN 36.2 mg/dL (7-18); CALCIUM 8.1 mg/dL (8.5-10.1); CREATININE 0.7 mg/dL (0.55-1.3); MAGNESIUM 2.6 mg/dL (1.8-2.4); PHOSPHOROUS 3.6 mg/dL (2.5-4.9); POTASSIUM 5.2 mmol/L (3.5-5.1); TOT PROT 7.3 g/dl (6.4-8.2)
[2018-09-16] MEDS ORDERED: PT OWN MED DRAWER 7, Y5N ONE (08:58)
[2018-09-16] MEDS: AMINO ACIDS/PROTEIN HYDROLYS 30 ML LIQUID.PKT GT SCH (09:01)
[2018-09-16] MEDS: carBAMazepine 200 MG TABLET GT SCH ×4 (09:01→23:01)
[2018-09-16] MEDS: HEPARIN NA (PORCINE) 5,000 UNITS/ML 1ML VIAL SQ SCH ×2 (11:11→23:01)
[2018-09-16] MEDS: LORATADINE 10 MG TABLET GT SCH (11:11)
[2018-09-16] MEDS: ASCORBIC ACID 500 MG TABLET (FP) GT SCH (11:12)
[2018-09-16] MEDS: SERTRALINE HCL 50 MG TABLET (FP) GT SCH (11:13)
[2018-09-16] MEDS: SODIUM CHLORIDE 1 GM TABLET GT SCH ×2 (11:16→23:02)
[2018-09-16] MEDS: LACTOBACILLUS ACIDOPHILUS 1 TABLET GT SCH ×2 (11:16→23:01)
--- NOTE | 2018-09-16 11:44 | PN ---
Progress Note, Physician - Current Medication List Current Medications: Active Medications Albuterol/Ipratropium (Duoneb -) 1 amp NEB Q6H PRN PRN Reason: SHORT OF BREATH/WHEEZING Amino Acids (Prosource No Carb Liquid Pkt) 30 ml GT DAILY@0800 [facility] Last Admin: 09/16/18 09:01 Dose: 30 ml Amlodipine Besylate (Norvasc -) 2.5 mg GT DAILY [facility] Last Admin: 09/15/18 12:13 Dose: Not Given Ascorbic Acid (Vitamin C -) 500 mg GT DAILY [facility] Last Admin: 09/16/18 11:12 Dose: 500 mg Carbamazepine (Tegretol -) 200 mg GT TIDCM [facility] Last Admin: 09/16/18 09:01 Dose: 200 mg Clonazepam (Klonopin -) 0.5 mg GT HS [facility] Last Admin: 09/15/18 23:50 Dose: 0.5 mg Heparin Sodium (Porcine) (Heparin -) 5,000 unit SQ BID [facility] Last Admin: 09/16/18 11:11 Dose: 5,000 unit Hydralazine HCl (Apresoline -) 50 mg GT TID [facility] Last Admin: 09/16/18 06:46 Dose: Not Given Sodium Chloride (Normal Saline -) 1,000 mls @ 50 mls/hr IV ASDIR [facility] Stop: 09/16/18 16:08 Last Admin: 09/15/18 16:19 Dose: 50 mls/hr Lactobacillus Acidophilus (Bacid -) 1 tab GT BID [facility] Last Admin: 09/16/18 11:16 Dose: 1 tab Levothyroxine Sodium 75 mcg/ (Levothyroxine Sodium 50 mcg) 125 mcg GT DAILY@ 0700 [facility] Last Admin: 09/16/18 06:47 Dose: 125 mcg Loratadine (Claritin -) 10 mg GT DAILY [facility] Last Admin: 09/16/18 11:11 Dose: 10 mg Mirtazapine (Remeron -) 7.5 mg GT HS [facility] Last Admin: 09/15/18 23:50 Dose: 7.5 mg Pregabalin (Lyrica -) 50 mg PO Q8H [facility] Last Admin: 09/16/18 06:47 Dose: 50 mg Sertraline HCl (Zoloft -) 50 mg GT DAILY [facility] Last Admin: 09/16/18 11:13 Dose: 50 mg Sodium Chloride (Sodium Chloride Tablet -) 1 gm GT BID [facility] Last Admin: 09/16/18 11:16 Dose: 1 gm - Objective Vital Signs: Vital Signs Temperature 97.9 F 09/16/18 06:00 Pulse Rate 63 09/16/18 10:15 Respiratory Rate 12 09/16/18 10:10 Blood Pressure 103/58 L 09/16/18 06:00 O2 Sat by Pulse Oximetry (%) 98 09/16/18 10:15 Cardiovascular: Yes: S1, S2 Respiratory: Yes: Regular, CTA Bilaterally Gastrointestinal: Yes: Normal Bowel Sounds, Soft. No: Tenderness Labs: CBC, BMP 09/16/18 07:00 09/16/18 07:00 INR, PTT INR 1.05 (0.83-1.09) 09/13/18 05:53 Assessment/Plan Problems (1) Acute on chronic respiratory failure with hypoxia and hypercapnia Assessment/Plan: -Pulm on board -mechanically ventilated -keep SpO2 >90% -bronchodilators Code(s): J96.21 - ACUTE AND CHRONIC RESPIRATORY FAILURE WITH HYPOXIA; J96.22 - ACUTE AND CHRONIC RESPIRATORY FAILURE WITH HYPERCAPNIA (2) Altered mental status Assessment/Plan: -resolved Code(s): R41.82 - ALTERED MENTAL STATUS, UNSPECIFIED (3) Anemia Assessment/Plan: -hematology consult -monitor Hg daily -transfuse for Hg <7.0 to avoid fluid overload Code(s): D64.9 - ANEMIA, UNSPECIFIED Qualifiers: Other causes of anemia: other cause, not classified (4) Functional quadriplegia secondary to MS Assessment/Plan: -PT -fall precaution -reposition q2h Code(s): G35 - MULTIPLE SCLEROSIS; R53.2 - FUNCTIONAL QUADRIPLEGIA (5) HTN (hypertension) Assessment/Plan: -Norvasc -hold if SBP <100 and/or DBP <60 Code(s): I10 - ESSENTIAL (PRIMARY) HYPERTENSION (6) Hx of multiple sclerosis Assessment/Plan: -PT -fall precaution Code(s): Z86.69 - PERSONAL HISTORY OF DIS OF THE NERVOUS SYS AND SENSE ORGANS (7) Hyponatremia Assessment/Plan: -Na IMPROVING -renal on board -Sodium Chloride tablet -monitor Na daily Code(s): E87.1 - HYPO-OSMOLALITY AND HYPONATREMIA (8) Hypothyroid Assessment/Plan: -Levothyroxine Code(s): E03.9 - HYPOTHYROIDISM, UNSPECIFIED (9) Multiple drug resistant organism (MDRO) culture positive Assessment/Plan: -contact precautions -BC neg -positive sputum culture Code(s): Z16.24 - RESISTANCE TO MULTIPLE ANTIBIOTICS
--- NOTE | 2018-09-16 12:03 | PN ---
Progress Note, REFUSE LABORER - Note Progress Note: On puree/thin liquids with reported tolerance Using PMV intermittently. Pt's sister reports recent decline in cognition Selected Entries 09/15/18 09/15/18 09/15/18 07:36 10:00 14:15 Breakfast 100% Lunch 50% Supper Temperature 96.3 F L 92.4 F L 09/15/18 09/15/18 09/15/18 16:00 18:00 21:22 Breakfast Lunch Supper 0 Temperature 93.6 F L 94.2 F L 96.6 F L 09/16/18 06:00 Breakfast Lunch Supper Temperature 97.9 F Laboratory Tests 09/16/18 07:00 WBC 6.2 Information provided to sister regarding augmentative communication/ environmental control assessment.
[2018-09-16] MEDS: amLODIPine BESYLATE 2.5 MG TABLET (FP) GT SCH (12:42)
[2018-09-16 13:18] VITALS: BMI 21.0
--- NOTE | 2018-09-16 14:14 | CON.CARD ---
Consult Consult Specialty:: Cardiology Reason for Consultation:: Hypotension - History of Present Illness History of Present Illness: 53 F with severe multiple sclerosis requiring Trach and PEG, ho bradycardia on AVNs. She was admitted with significant tracheal secretions, hypothermia, hyponatremia and hypotension. Now improved. Her secretions are reduced and she is on trach collar Echocardiogram 08/2018 with normal LV fucntion and no valvular pathology. - Past Medical History YEAST DISTILLER: Yes: Multiple Sclerosis (quadraplegia), Other (legally blind, trigeminal neuralgia -> baclofen pump) Cardio/Vascular: Yes: HTN, Hyperlipdemia Pulmonary: Yes: Pneumonia, Previously Intubated, Other. No: Asthma, Bronchitis , Cancer, COPD, Pulmonary Embolus, Pulmonary Fibrosis, Sleep Apnea Gastrointestinal: Yes: Constipation (chronic) Hepatobiliary: Yes: Cholelithiasis Renal/: Yes: Neurogenic Bladder ( neurogenic bladder, chronic perera catheter) ...LMP: 06/07/12 Infectious Disease: Yes: Other (pneumonia, uti treated by urologist) Musculoskeletal: Yes: Other (Quadraplegia) Dermatology: Yes: Other (chronic decubitus followed by wound care) Additional Medical History: trigeminal neuralgia, baclofen pump. chronic decubitus followed by wound care. neurogenic bladder, chronic perera catheter - Past Surgical History Past Surgical History: Yes: Colonoscopy - Alcohol/Substance Use Hx Alcohol Use: No History of Substance Use: reports: None - Smoking History Smoking history: Current every day smoker Have you smoked in the past 12 months: No Aproximately how many cigarettes per day: 0 - Social History Usual Living Arrangement: With Parent ADL: Support Services History of Recent Travel: No Home Medications - Allergies Allergies/Adverse Reactions: Allergies Allergy/AdvReac Type Severity Reaction Status Date / Time chloral hydrate Allergy Intermediate Rash Verified 09/12/18 12:32 [Chloral Hydrate] azathioprine [From Imuran] Allergy Rash Verified 09/12/18 12:32 azathioprine sodium Allergy Rash Verified 09/12/18 12:32 [From Imuran] adhesive tape AdvReac Severe sensitivity Verified 09/12/18 12:32 to glue adhesive AdvReac Unknown Verified 09/12/18 12:32 - Home Medications Home Medications: Ambulatory Orders Melatonin 2 mg GT HS 05/03/18 Multivitamin [Multiple Vitamins] 1 each GT DAILY 05/03/18 Albuterol 2.5/Ipratropium 0.5 [Duoneb -] 1 amp NEB Q6H PRN #45 amp 05/28/18 Sodium Chloride Tablet - 1 gm GT DAILY #30 tablet 07/25/18 Carbamazepine [Tegretol -] 200 mg GT TIDCM tablet 08/22/18 Levothyroxine [Synthroid -] 100 mcg GT DAILY@0700 tablet 08/22/18 Amino Acids/Protein Hydrolys [Prosource No Carb Liquid Pkt] 30 ml PO DAILY@0800 09/12/18 Amlodipine Besylate [Norvasc -] 5 mg GT DAILY 09/12/18 Ascorbic Acid [Vitamin C -] 500 mg GT DAILY 09/12/18 Lactobacillus Acidophilus [Bacid -] 1 tab GT BID 09/12/18 Loratadine [Claritin -] 10 mg GT DAILY 09/12/18 Mirtazapine [Remeron -] 7.5 mg GT HS 09/12/18 Sertraline HCl [Zoloft -] 50 mg GT DAILY 09/12/18 hydrALAZINE HCL [Apresoline -] 50 mg GT TID 09/12/18 Family Disease History - Family Disease History Family Disease History: Diabetes: Sister, Other: Mother Review of Systems - Review of Systems Constitutional: denies: Chills, Diaphoresis, Lethargy Eyes: reports: No Symptoms HENT: reports: No Symptoms Neck: reports: Decreased ROM Cardiovascular: reports: Shortness of Breath. denies: Chest Pain, Edema, Palpitations Respiratory: reports: Cough, SOB Gastrointestinal: reports: No Symptoms Vital Signs: Vital Signs Temperature 97.9 F 09/16/18 06:00 Pulse Rate 63 09/16/18 10:15 Respiratory Rate 12 09/16/18 10:10 Blood Pressure 103/58 L 09/16/18 06:00 O2 Sat by Pulse Oximetry (%) 98 09/16/18 10:15 Constitutional: Yes: Cachectic, Mild Distress, Thin Eyes: Yes: Conjunctiva Clear, EOM Intact HENT: Yes: Atraumatic, Normocephalic Neck: Yes: Supple, Trachea Midline Respiratory: Yes: Regular, Diminished, Poor Air Entry Gastrointestinal: Yes: Normal Bowel Sounds, Soft Cardiovascular: Yes: Regular Rate and Rhythm JVD: No Carotid Bruit: No PMI: Non-Displaced Heart Sounds: Yes: S1, S2 Murmur: No: Systolic Murmur, Diastolic Murmur Edema: No - Other Data Labs, Other Data: CBC, BMP 09/16/18 07:00 09/16/18 07:00 INR, PTT INR 1.05 (0.83-1.09) 09/13/18 05:[address] T changes. Problem List - Problems (1) Hyponatremia Code(s): E87.1 - HYPO-OSMOLALITY AND HYPONATREMIA Assessment/Plan Admitted with hypothermia, hypotension increased secretions, and significant electrolyte abnormalities. Problems suggest possibly sepsis. Not volume overloaded. Antibiotic therapy. Stop all antihypertensive medications. ECG is normal without ischemic changes. Will see as needed
--- NOTE | 2018-09-16 14:29 | PN ---
Progress Note (short form) - Note Progress Note: Renal follow up for hyponatremia Pt seen and examined at the bedside awake and alert no acute complaints no overnight events Vital Signs Temperature 97.6 F 09/16/18 14:00 Pulse Rate 80 09/16/18 16:00 Respiratory Rate 16 09/16/18 16:00 Blood Pressure 96/36 L 09/16/18 16:00 O2 Sat by Pulse Oximetry (%) 96 09/16/18 12:55 Intake & Output 09/13/18 09/14/18 09/15/18 09/16/18 23:59 23:59 23:59 23:59 Intake Total 620 1910 696 771 Output Total 750 2550 55344 1900 Balance -130 -480 -21343 -1129 Weight 68.039 kg 68.663 kg NAD on trach collar RRR, no M/R CTA, no rales or wheeze soft NT/ND no LE or sacral edema CBC, BMP 09/16/18 07:00 09/16/18 07:00 Current Medications Albuterol/Ipratropium (Duoneb -) 1 amp NEB Q6H PRN PRN Reason: SHORT OF BREATH/WHEEZING Last Admin: 09/16/18 14:45 Dose: 1 amp Amino Acids (Prosource No Carb Liquid Pkt) 30 ml GT DAILY@0800 [facility] Last Admin: 09/16/18 09:01 Dose: 30 ml Amlodipine Besylate (Norvasc -) 2.5 mg GT DAILY [facility] Last Admin: 09/16/18 12:42 Dose: Not Given Ascorbic Acid (Vitamin C -) 500 mg GT DAILY [facility] Last Admin: 09/16/18 11:12 Dose: 500 mg Carbamazepine (Tegretol -) 200 mg GT TIDCM [facility] Last Admin: 09/16/18 12:49 Dose: 200 mg Clonazepam (Klonopin -) 0.5 mg GT HS [facility] Last Admin: 09/15/18 23:50 Dose: 0.5 mg Heparin Sodium (Porcine) (Heparin -) 5,000 unit SQ BID [facility] Last Admin: 09/16/18 11:11 Dose: 5,000 unit Hydralazine HCl (Apresoline -) 50 mg GT TID [facility] Last Admin: 09/16/18 16:04 Dose: Not Given Lactobacillus Acidophilus (Bacid -) 1 tab GT BID [facility] Last Admin: 09/16/18 11:16 Dose: 1 tab Levothyroxine Sodium 75 mcg/ (Levothyroxine Sodium 50 mcg) 125 mcg GT DAILY@ 0700 [facility] Last Admin: 09/16/18 06:47 Dose: 125 mcg Loratadine (Claritin -) 10 mg GT DAILY [facility] Last Admin: 09/16/18 11:11 Dose: 10 mg Mirtazapine (Remeron -) 7.5 mg GT HS [facility] Last Admin: 09/15/18 23:50 Dose: 7.5 mg Pregabalin (Lyrica -) 50 mg PO Q8H [facility] Last Admin: 09/16/18 14:15 Dose: 50 mg Sertraline HCl (Zoloft -) 50 mg GT DAILY [facility] Last Admin: 09/16/18 11:13 Dose: 50 mg Sodium Chloride (Sodium Chloride Tablet -) 1 gm GT BID [facility] Last Admin: 09/16/18 11:16 Dose: 1 gm 53 year old woman with history of multiple sclerosis, respiratory failure on trach, hx of SIADH, neurogenic bladder who presented from home with increased respiratory secretions and found to have hyponatremia with Na of 116. #Hyponatremia secondary to SIADH vs. intravascular volume depletion-less likely #Increased respiratory secretions #Anemia #Multiple sclerosis #Chronic respiratory failure with trach Serum Na improving. Will increase tube feeds to 84cc per hour x 12 hours and maintain on 15cc water flushes. (total water with feeds and flushes around 1060cc) will limit oral water intake to 250ml Trend na daily maintain salt tabs BID Tyshawn Liriano DO
[2018-09-16] MEDS: ALBUTEROL SO4 2.5/IPRATROPIUM 0.5 INH SOL 3 ML VIAL.NEB. NEB PRN (14:45)
--- NOTE | 2018-09-16 17:22 | PN ---
Progress Note (short form) - Note Progress Note: PULMONARY Awake and alert on vent Appears weak Had episode of desat on trach collar requiring vent vss/afebrile spo2 95% on fio2 40% vent Gen: NAD on vent Heart: RRR Lung: decreased breath sounds at the bases Abd: soft, nontender Ext: mild edema Multiple Sclerosis Chronic Respiratory Failure s/p Tracheostomy Functional Quadriplegia Atelectasis HTN Hypothyroidism - monitor sodium - fluid restriction - continue salt tabs - would monitor off antibiotics - f/u cultures - chest PT, pulmonary toilet - inhaled bronchodilators - trach collar during day, vent support at night - enteral feeds - DVT/GI prophylaxis - vent alternating w trach collar as needed - cxr ordered Dr Fox
--- NOTE | 2018-09-16 21:29 | PN ---
Progress Note (short form) - Note Progress Note: NEUROLOGY PROGRESS: Events reviewed and discussed with her mother at the bedside. Periodic desaturation indicates need for intermittent ventilation. Mother reports markedly decreased complaints of facial pain on Tegretol (200 mg TID) and Pregabalin 50 mg TID (Lyrica). Tegretol level 7.7 ug% Exam unchanged. IMP: MS Trigeminal neuralgia- improved on meds. Hyponatremia due to Tegretol and excessive hydration Suggest: Increase lyrica to 100 mg q 12 hrs Decrease Tegretol to 200 q 12 hrs Observe over the weekend for recurrent facial pains. Thank you very much, Rom Conroy MD
[2018-09-16] MEDS: clonazePAM 0.5 MG TABLET GT SCH (23:01)
[2018-09-16] MEDS: MIRTAZAPINE 15 MG TABLET (FP) GT SCH (23:01)
[2018-09-17] MEDS: hydrALAZINE HCL 50 MG TABLET (FP) GT SCH ×3 (06:09→21:44)
[2018-09-17] MEDS ORDERED: LEVOTHYROXINE NA 75 MCG TABLET (FP) ONE (06:43)
[2018-09-17] MEDS ORDERED: LEVOTHYROXINE NA 50 MCG TABLET (FP) ONE (06:45)
[2018-09-17 08:08] LABS: BLOOD UREA NITROGEN 39.8 mg/dL (7-18); CALCIUM 8.5 mg/dL (8.5-10.1); CREATININE 0.6 mg/dL (0.55-1.3); MAGNESIUM 2.7 mg/dL (1.8-2.4); PHOSPHOROUS 3.2 mg/dL (2.5-4.9); POTASSIUM 4.8 mmol/L (3.5-5.1)
[2018-09-17] MEDS: AMINO ACIDS/PROTEIN HYDROLYS 30 ML LIQUID.PKT GT SCH (08:46)
[2018-09-17] MEDS: LEVOTHYROXINE GT SCH (08:46)
[2018-09-17] MEDS: PREGABALIN 50 MG CAPSULE PO SCH ×3 (11:16→21:44)
[2018-09-17] MEDS: LACTOBACILLUS ACIDOPHILUS 1 TABLET GT SCH ×3 (11:16→21:44)
[2018-09-17] MEDS: SODIUM CHLORIDE 1 GM TABLET GT SCH ×3 (11:16→21:48)
[2018-09-17] MEDS: LORATADINE 10 MG TABLET GT SCH ×2 (11:16→11:47)
[2018-09-17] MEDS: amLODIPine BESYLATE 2.5 MG TABLET (FP) GT SCH ×2 (11:16→11:47)
[2018-09-17] MEDS: SERTRALINE HCL 50 MG TABLET (FP) GT SCH ×2 (11:17→11:47)
[2018-09-17] MEDS: carBAMazepine 200 MG TABLET GT SCH ×3 (11:17→21:44)
[2018-09-17] MEDS: ASCORBIC ACID 500 MG TABLET (FP) GT SCH ×2 (11:17→11:47)
[2018-09-17] MEDS: HEPARIN NA (PORCINE) 5,000 UNITS/ML 1ML VIAL SQ SCH ×2 (11:48→21:45)
--- NOTE | 2018-09-17 12:00 | PN ---
Progress Note (short form) - Note Progress Note: PULMONARY Awake and alert off vent Appears weak Had episode of desat on trach collar requiring vent yesterday CXR done yesterday showed more prominent right infiltrate which has waxed and waned during her multiple hospitalizations. vss/afebrile spo2 97% on fio2 40% vent Gen: NAD on vent Heart: RRR Lung: decreased breath sounds at the bases Abd: soft, nontender Ext: mild edema Multiple Sclerosis Chronic Respiratory Failure s/p Tracheostomy Functional Quadriplegia Atelectasis HTN Hypothyroidism - monitor off antibiotics for now - monitor sodium - fluid restriction - continue salt tabs - f/u cultures - chest PT, pulmonary toilet - inhaled bronchodilators - trach collar during day, vent support at night - enteral feeds - DVT/GI prophylaxis - vent alternating w trach collar as needed Dr Yonas Lorenzo
--- NOTE | 2018-09-17 13:21 | PN ---
Progress Note, Physician Chief Complaint: SIADH Hyponatremia Multiple Sclerosis Functional Quadriplegia Anemia History of Present Illness: Previous notes and events reviewed awake and alert NAD denies chest pain or SOB breathing with O2 via trach collar and maintaining O2 sat 92-93% temperature have been stable, no hypothermia - Current Medication List Current Medications: Active Medications Albuterol/Ipratropium (Duoneb -) 1 amp NEB Q6H PRN PRN Reason: SHORT OF BREATH/WHEEZING Last Admin: 09/16/18 14:45 Dose: 1 amp Amino Acids (Prosource No Carb Liquid Pkt) 30 ml GT DAILY@0800 [facility] Last Admin: 09/17/18 08:46 Dose: 30 ml Amlodipine Besylate (Norvasc -) 2.5 mg GT DAILY [facility] Last Admin: 09/17/18 11:47 Dose: 2.5 mg Ascorbic Acid (Vitamin C -) 500 mg GT DAILY [facility] Last Admin: 09/17/18 11:47 Dose: 500 mg Carbamazepine (Tegretol -) 200 mg GT BID [facility] Last Admin: 09/17/18 11:49 Dose: 200 mg Clonazepam (Klonopin -) 0.5 mg GT HS [facility] Last Admin: 09/16/18 23:01 Dose: 0.5 mg Heparin Sodium (Porcine) (Heparin -) 5,000 unit SQ BID [facility] Last Admin: 09/17/18 11:48 Dose: 5,000 unit Hydralazine HCl (Apresoline -) 50 mg GT TID [facility] Last Admin: 09/17/18 06:09 Dose: Not Given Lactobacillus Acidophilus (Bacid -) 1 tab GT BID [facility] Last Admin: 09/17/18 11:47 Dose: 1 tab Levothyroxine Sodium 75 mcg/ (Levothyroxine Sodium 50 mcg) 125 mcg GT DAILY@ 0700 [facility] Last Admin: 09/17/18 08:46 Dose: 125 mcg Loratadine (Claritin -) 10 mg GT DAILY [facility] Last Admin: 09/17/18 11:47 Dose: 10 mg Mirtazapine (Remeron -) 7.5 mg GT HS [facility] Last Admin: 09/16/18 23:01 Dose: 7.5 mg Pregabalin (Lyrica -) 100 mg PO BID [facility] Last Admin: 09/17/18 11:47 Dose: 100 mg Sertraline HCl (Zoloft -) 50 mg GT DAILY [facility] Last Admin: 09/17/18 11:47 Dose: 50 mg Sodium Chloride (Sodium Chloride Tablet -) 1 gm GT BID [facility] Last Admin: 09/17/18 11:48 Dose: 1 gm - Objective Vital Signs: Vital Signs Temperature 97.5 F L 09/17/18 09:00 Pulse Rate 82 09/17/18 09:00 Respiratory Rate 14 09/17/18 10:45 Blood Pressure 141/66 09/17/18 09:00 O2 Sat by Pulse Oximetry (%) 97 09/17/18 10:45 Constitutional: Yes: No Distress, Calm Eyes: Yes: Conjunctiva Clear HENT: Yes: Atraumatic Neck: Yes: Other (trach) Cardiovascular: Yes: Tachycardia Respiratory: Yes: Rhonchi, Other (O2 via trach collar) Gastrointestinal: Yes: Normal Bowel Sounds, Soft, Other (Gtube) Genitourinary: Yes: Raza Present Musculoskeletal: Yes: Muscle Weakness Extremities: Yes: WNL Edema: No Neurological: Yes: Alert, Pre-Existing Deficit, Weakness Psychiatric: Yes: Alert Labs: CBC, BMP 09/16/18 07:00 09/17/18 06:30 INR, PTT INR 1.05 (0.83-1.09) 09/13/18 05:53 Microbiology 09/13/18 05:53 Blood - Peripheral Venous Blood Culture - Preliminary NO GROWTH OBTAINED AFTER 96 HOURS, INCUBATION TO CONTINUE FOR 1 DAYS. 09/13/18 06:10 Blood - Peripheral Venous Blood Culture - Preliminary NO GROWTH OBTAINED AFTER 96 HOURS, INCUBATION TO CONTINUE FOR 1 DAYS. 09/13/18 06:25 Sputum - Endotrachea Suction/Ventilator Gram Stain - Final 09/13/18 06:25 Sputum - Endotrachea Suction/Ventilator Sputum Culture - Preliminary Non Lactose Fermenting Gnb Non Lactose Fermenting Gnb#2 09/12/18 19:20 Urine - Urine - Catheterized Urine Culture - Final Contaminated: Please Repeat Problem List - Problems (1) Acute on chronic respiratory failure with hypoxia and hypercapnia Assessment/Plan: -Pulm on board -mechanically ventilated with trial periods of breathing with O2 via trach collar -keep SpO2 >90% -bronchodilators Code(s): J96.21 - ACUTE AND CHRONIC RESPIRATORY FAILURE WITH HYPOXIA; J96.22 - ACUTE AND CHRONIC RESPIRATORY FAILURE WITH HYPERCAPNIA (2) Altered mental status Assessment/Plan: -resolved Code(s): R41.82 - ALTERED MENTAL STATUS, UNSPECIFIED (3) Anemia Assessment/Plan: -Hg 7.8 -hematology consult -monitor Hg daily -transfuse for Hg <7.0 to avoid fluid overload Code(s): D64.9 - ANEMIA, UNSPECIFIED Qualifiers: Other causes of anemia: other cause, not classified (4) Functional quadriplegia secondary to MS Assessment/Plan: -PT -fall precaution -reposition q2h Code(s): G35 - MULTIPLE SCLEROSIS; R53.2 - FUNCTIONAL QUADRIPLEGIA (5) HTN (hypertension) Assessment/Plan: -Norvasc -hold if SBP <100 and/or DBP <60 Code(s): I10 - ESSENTIAL (PRIMARY) HYPERTENSION (6) Hx of multiple sclerosis Assessment/Plan: -PT -fall precaution Code(s): Z86.69 - PERSONAL HISTORY OF DIS OF THE NERVOUS SYS AND SENSE ORGANS (7) Hyponatremia Assessment/Plan: -Na 135 -renal on board -Sodium Chloride tablet -monitor Na daily Code(s): E87.1 - HYPO-OSMOLALITY AND HYPONATREMIA (8) Hypothyroid Assessment/Plan: -Levothyroxine Code(s): E03.9 - HYPOTHYROIDISM, UNSPECIFIED (9) Multiple drug resistant organism (MDRO) culture positive Assessment/Plan: -contact precautions -BC neg -positive sputum culture Code(s): Z16.24 - RESISTANCE TO MULTIPLE ANTIBIOTICS (10) Hypothermia Assessment/Plan: -monitor temp -kinsey hugger as needed for temp <96F Code(s): T68.XXXA - HYPOTHERMIA, INITIAL ENCOUNTER Assessment/Plan see problem list dvt ppx
--- NOTE | 2018-09-17 19:24 | PN ---
Progress Note (short form) - Note Progress Note: #Hyponatremia secondary to SIADH vs. intravascular volume depletion-less likely #Increased respiratory secretions #Anemia #Multiple sclerosis #Chronic respiratory failure with trach Active Medications Albuterol/Ipratropium (Duoneb -) 1 amp NEB Q6H PRN PRN Reason: SHORT OF BREATH/WHEEZING Last Admin: 09/16/18 14:45 Dose: 1 amp Amino Acids (Prosource No Carb Liquid Pkt) 30 ml GT DAILY@0800 [facility] Last Admin: 09/17/18 08:46 Dose: 30 ml Amlodipine Besylate (Norvasc -) 2.5 mg GT DAILY [facility] Last Admin: 09/17/18 11:47 Dose: 2.5 mg Ascorbic Acid (Vitamin C -) 500 mg GT DAILY [facility] Last Admin: 09/17/18 11:47 Dose: 500 mg Carbamazepine (Tegretol -) 200 mg GT BID [facility] Last Admin: 09/17/18 11:49 Dose: 200 mg Clonazepam (Klonopin -) 0.5 mg GT HS [facility] Last Admin: 09/16/18 23:01 Dose: 0.5 mg Heparin Sodium (Porcine) (Heparin -) 5,000 unit SQ BID [facility] Last Admin: 09/17/18 11:48 Dose: 5,000 unit Hydralazine HCl (Apresoline -) 50 mg GT TID [facility] Last Admin: 09/17/18 15:15 Dose: 50 mg Lactobacillus Acidophilus (Bacid -) 1 tab GT BID [facility] Last Admin: 09/17/18 11:47 Dose: 1 tab Levothyroxine Sodium 75 mcg/ (Levothyroxine Sodium 50 mcg) 125 mcg GT DAILY@ 0700 [facility] Last Admin: 09/17/18 08:46 Dose: 125 mcg Loratadine (Claritin -) 10 mg GT DAILY [facility] Last Admin: 09/17/18 11:47 Dose: 10 mg Mirtazapine (Remeron -) 7.5 mg GT HS [facility] Last Admin: 09/16/18 23:01 Dose: 7.5 mg Pregabalin (Lyrica -) 100 mg PO BID [facility] Last Admin: 09/17/18 11:47 Dose: 100 mg Sertraline HCl (Zoloft -) 50 mg GT DAILY [facility] Last Admin: 09/17/18 11:47 Dose: 50 mg Sodium Chloride (Sodium Chloride Tablet -) 1 gm GT BID [facility] Last Admin: 09/17/18 11:48 Dose: 1 gm Last Vital Signs Temp Pulse Resp BP Pulse Ox 97.5 F L 67 18 148/67 95 09/17/18 16:30 09/17/18 18:12 09/17/18 16:30 09/17/18 16:30 09/17/18 18:12 CBC, BMP 09/16/18 07:00 09/17/18 06:30 hyponatremia improved
[2018-09-17] MEDS: clonazePAM 0.5 MG TABLET GT SCH (21:45)
[2018-09-17] MEDS: MIRTAZAPINE 15 MG TABLET (FP) GT SCH (21:47)
[2018-09-18] MEDS ORDERED: LEVOTHYROXINE NA 75 MCG TABLET (FP) ONE (04:59)
[2018-09-18] MEDS ORDERED: LEVOTHYROXINE NA 50 MCG TABLET (FP) ONE (04:59)
[2018-09-18] MEDS: LEVOTHYROXINE GT SCH (06:01)
[2018-09-18] MEDS: hydrALAZINE HCL 50 MG TABLET (FP) GT SCH ×3 (06:01→21:38)
[2018-09-18] MEDS ORDERED: PT OWN MED DRAWER 7, Y5N ONE (10:18)
[2018-09-18] MEDS: PREGABALIN 50 MG CAPSULE PO SCH ×2 (10:21→21:39)
[2018-09-18] MEDS: AMINO ACIDS/PROTEIN HYDROLYS 30 ML LIQUID.PKT GT SCH (10:21)
[2018-09-18] MEDS: LACTOBACILLUS ACIDOPHILUS 1 TABLET GT SCH ×2 (10:21→21:38)
[2018-09-18] MEDS: amLODIPine BESYLATE 2.5 MG TABLET (FP) GT SCH (10:22)
[2018-09-18] MEDS: SODIUM CHLORIDE 1 GM TABLET GT SCH ×2 (10:22→21:39)
[2018-09-18] MEDS: HEPARIN NA (PORCINE) 5,000 UNITS/ML 1ML VIAL SQ SCH ×2 (10:22→21:39)
[2018-09-18] MEDS: SERTRALINE HCL 50 MG TABLET (FP) GT SCH (10:22)
[2018-09-18] MEDS: LORATADINE 10 MG TABLET GT SCH (10:22)
[2018-09-18] MEDS: ASCORBIC ACID 500 MG TABLET (FP) GT SCH (10:22)
[2018-09-18] MEDS: carBAMazepine 200 MG TABLET GT SCH ×2 (10:23→21:39)
--- NOTE | 2018-09-18 11:47 | PN ---
Progress Note (short form) - Note Progress Note: PULMONARY Awake and alert off vent No BM for 3 days vss/afebrile spo2 97% on fio2 40% vent Gen: NAD on vent Heart: RRR Lung: decreased breath sounds at the bases Abd: soft, nontender Ext: mild edema Multiple Sclerosis Chronic Respiratory Failure s/p Tracheostomy Functional Quadriplegia Atelectasis HTN Hypothyroidism - monitor sodium - fluid restriction - continue salt tabs - chest PT, pulmonary toilet - inhaled bronchodilators - trach collar during day, vent support at night - enteral feeds - DVT/GI prophylaxis - vent alternating w trach collar as needed - Primary to address constipation Dr Yonas Lorenzo
--- NOTE | 2018-09-18 12:21 | PN ---
Progress Note, Physician Chief Complaint: SIADH Hyponatremia Multiple Sclerosis Functional Quadriplegia Anemia History of Present Illness: Previous notes and events reviewed awake and alert NAD denies chest pain or SOB breathing with O2 via trach collar and maintaining O2 sat 97% temperature have been stable, no hypothermia complain of constipation--refusing adding another laxative to med regimen because scared of developing diarrhea - Current Medication List Current Medications: Active Medications Albuterol/Ipratropium (Duoneb -) 1 amp NEB Q6H PRN PRN Reason: SHORT OF BREATH/WHEEZING Last Admin: 09/16/18 14:45 Dose: 1 amp Amino Acids (Prosource No Carb Liquid Pkt) 30 ml GT DAILY@0800 [facility] Last Admin: 09/18/18 10:21 Dose: 30 ml Amlodipine Besylate (Norvasc -) 2.5 mg GT DAILY [facility] Last Admin: 09/18/18 10:22 Dose: 2.5 mg Ascorbic Acid (Vitamin C -) 500 mg GT DAILY [facility] Last Admin: 09/18/18 10:22 Dose: 500 mg Carbamazepine (Tegretol -) 200 mg GT BID [facility] Last Admin: 09/18/18 10:23 Dose: 200 mg Clonazepam (Klonopin -) 0.5 mg GT HS [facility] Last Admin: 09/17/18 21:45 Dose: 0.5 mg Heparin Sodium (Porcine) (Heparin -) 5,000 unit SQ BID [facility] Last Admin: 09/18/18 10:22 Dose: 5,000 unit Hydralazine HCl (Apresoline -) 50 mg GT TID [facility] Last Admin: 09/18/18 06:01 Dose: 50 mg Lactobacillus Acidophilus (Bacid -) 1 tab GT BID [facility] Last Admin: 09/18/18 10:21 Dose: 1 tab Levothyroxine Sodium 75 mcg/ (Levothyroxine Sodium 50 mcg) 125 mcg GT DAILY@ 0700 [facility] Last Admin: 09/18/18 06:01 Dose: 125 mcg Loratadine (Claritin -) 10 mg GT DAILY [facility] Last Admin: 09/18/18 10:22 Dose: 10 mg Mirtazapine (Remeron -) 7.5 mg GT HS [facility] Last Admin: 09/17/18 21:47 Dose: 7.5 mg Polyethylene Glycol (Miralax (For Daily Use) -) 17 gm PO ONCE ONE Stop: 09/18/18 12:19 Pregabalin (Lyrica -) 100 mg PO BID [facility] Last Admin: 09/18/18 10:21 Dose: 100 mg Sertraline HCl (Zoloft -) 50 mg GT DAILY [facility] Last Admin: 09/18/18 10:22 Dose: 50 mg Sodium Chloride (Sodium Chloride Tablet -) 1 gm GT BID [facility] Last Admin: 09/18/18 10:22 Dose: 1 gm - Objective Vital Signs: Vital Signs Temperature 98 F 09/18/18 09:00 Pulse Rate 98 H 09/18/18 10:00 Respiratory Rate 18 09/18/18 09:00 Blood Pressure 168/88 09/18/18 09:00 O2 Sat by Pulse Oximetry (%) 99 09/18/18 10:00 Constitutional: Yes: No Distress, Calm Eyes: Yes: Conjunctiva Clear HENT: Yes: Atraumatic Neck: Yes: Other (trach) Cardiovascular: Yes: Regular Rate and Rhythm Respiratory: Yes: Regular, Rhonchi, Other (O2 via trach collar) Gastrointestinal: Yes: Normal Bowel Sounds, Soft, Distention (mild) Genitourinary: Yes: Raza Present Musculoskeletal: Yes: Muscle Weakness Extremities: Yes: WNL Edema: No Neurological: Yes: Alert, Weakness Psychiatric: Yes: Alert Labs: CBC, BMP 09/16/18 07:00 09/17/18 06:30 INR, PTT INR 1.05 (0.83-1.09) 09/13/18 05:53 Microbiology 09/13/18 06:25 Sputum - Endotrachea Suction/Ventilator Gram Stain - Final 09/13/18 06:25 Sputum - Endotrachea Suction/Ventilator Sputum Culture - Final Pseudomonas Aeruginosa Proteus Mirabilis 09/13/18 05:53 Blood - Peripheral Venous Blood Culture - Final NO GROWTH AFTER 5 DAYS INCUBATION 09/13/18 06:10 Blood - Peripheral Venous Blood Culture - Final NO GROWTH AFTER 5 DAYS INCUBATION 09/12/18 19:20 Urine - Urine - Catheterized Urine Culture - Final Contaminated: Please Repeat Problem List - Problems (1) Acute on chronic respiratory failure with hypoxia and hypercapnia Assessment/Plan: -Pulm on board -mechanically ventilated with trial periods of breathing with O2 via trach collar -keep SpO2 >90% -bronchodilators Code(s): J96.21 - ACUTE AND CHRONIC RESPIRATORY FAILURE WITH HYPOXIA; J96.22 - ACUTE AND CHRONIC RESPIRATORY FAILURE WITH HYPERCAPNIA (2) Altered mental status Assessment/Plan: -resolved Code(s): R41.82 - ALTERED MENTAL STATUS, UNSPECIFIED (3) Anemia Assessment/Plan: -Hg 7.8 -hematology consult -monitor Hg daily -transfuse for Hg <7.0 to avoid fluid overload Code(s): D64.9 - ANEMIA, UNSPECIFIED Qualifiers: Other causes of anemia: other cause, not classified (4) Functional quadriplegia secondary to MS Assessment/Plan: -PT -fall precaution -reposition q2h Code(s): G35 - MULTIPLE SCLEROSIS; R53.2 - FUNCTIONAL QUADRIPLEGIA (5) HTN (hypertension) Assessment/Plan: -Norvasc -hold if SBP <100 and/or DBP <60 Code(s): I10 - ESSENTIAL (PRIMARY) HYPERTENSION (6) Hx of multiple sclerosis Assessment/Plan: -PT -fall precaution Code(s): Z86.69 - PERSONAL HISTORY OF DIS OF THE NERVOUS SYS AND SENSE ORGANS (7) Hyponatremia Assessment/Plan: -Na 135 -renal on board -Sodium Chloride tablet -monitor Na daily Code(s): E87.1 - HYPO-OSMOLALITY AND HYPONATREMIA (8) Hypothyroid Assessment/Plan: -Levothyroxine Code(s): E03.9 - HYPOTHYROIDISM, UNSPECIFIED (9) Multiple drug resistant organism (MDRO) culture positive Assessment/Plan: -contact precautions -BC neg -positive sputum culture Code(s): Z16.24 - RESISTANCE TO MULTIPLE ANTIBIOTICS (10) Hypothermia Assessment/Plan: -monitor temp -kinsey hugger as needed for temp <96F Code(s): T68.XXXA - HYPOTHERMIA, INITIAL ENCOUNTER (11) Constipation Assessment/Plan: -Abdominal Xray ordered R/O fecal impaction -Colace -Miralax 17g x 1 dose Code(s): K59.00 - CONSTIPATION, UNSPECIFIED Assessment/Plan see problem list dvt ppx
[2018-09-18] MEDS ORDERED: POLYETHYLENE GLYCOL 3350 119 GM BTL PO ONE (12:30)
--- NOTE | 2018-09-18 20:16 | PN ---
Progress Note (short form) - Note Progress Note: #Hyponatremia secondary to SIADH vs. intravascular volume depletion-less likely #Increased respiratory secretions #Anemia #Multiple sclerosis #Chronic respiratory failure with trach Current Medications Albuterol/Ipratropium (Duoneb -) 1 amp NEB Q6H PRN PRN Reason: SHORT OF BREATH/WHEEZING Last Admin: 09/16/18 14:45 Dose: 1 amp Amino Acids (Prosource No Carb Liquid Pkt) 30 ml GT DAILY@0800 [facility] Last Admin: 09/18/18 10:21 Dose: 30 ml Amlodipine Besylate (Norvasc -) 2.5 mg GT DAILY [facility] Last Admin: 09/18/18 10:22 Dose: 2.5 mg Ascorbic Acid (Vitamin C -) 500 mg GT DAILY [facility] Last Admin: 09/18/18 10:22 Dose: 500 mg Carbamazepine (Tegretol -) 200 mg GT BID [facility] Last Admin: 09/18/18 10:23 Dose: 200 mg Clonazepam (Klonopin -) 0.5 mg GT HS [facility] Last Admin: 09/17/18 21:45 Dose: 0.5 mg Heparin Sodium (Porcine) (Heparin -) 5,000 unit SQ BID [facility] Last Admin: 09/18/18 10:22 Dose: 5,000 unit Hydralazine HCl (Apresoline -) 50 mg GT TID [facility] Last Admin: 09/18/18 15:04 Dose: 50 mg Lactobacillus Acidophilus (Bacid -) 1 tab GT BID [facility] Last Admin: 09/18/18 10:21 Dose: 1 tab Levothyroxine Sodium 75 mcg/ (Levothyroxine Sodium 50 mcg) 125 mcg GT DAILY@ 0700 [facility] Last Admin: 09/18/18 06:01 Dose: 125 mcg Loratadine (Claritin -) 10 mg GT DAILY [facility] Last Admin: 09/18/18 10:22 Dose: 10 mg Mirtazapine (Remeron -) 7.5 mg GT HS [facility] Last Admin: 09/17/18 21:47 Dose: 7.5 mg Pregabalin (Lyrica -) 100 mg PO BID [facility] Last Admin: 09/18/18 10:21 Dose: 100 mg Sertraline HCl (Zoloft -) 50 mg GT DAILY [facility] Last Admin: 09/18/18 10:22 Dose: 50 mg Sodium Chloride (Sodium Chloride Tablet -) 1 gm GT BID [facility] Last Admin: 09/18/18 10:22 Dose: 1 gm Last Vital Signs Temp Pulse Resp BP Pulse Ox 97.3 F L 75 18 141/70 99 09/18/18 17:00 09/18/18 17:00 09/18/18 17:00 09/18/18 17:00 09/18/18 10:00 Lungs clear Heart reg Abd soft Ext no edema CBC, BMP 09/16/18 07:00 09/17/18 06:30 hyponatremia improved Plan- f/u labs in am
[2018-09-18] MEDS: MIRTAZAPINE 15 MG TABLET (FP) GT SCH (21:38)
[2018-09-18] MEDS: clonazePAM 0.5 MG TABLET GT SCH (21:39)
[2018-09-19] MEDS ORDERED: LEVOTHYROXINE NA 50 MCG TABLET (FP) ONE (05:54)
[2018-09-19] MEDS ORDERED: LEVOTHYROXINE NA 75 MCG TABLET (FP) ONE (05:54)
[2018-09-19] MEDS: LEVOTHYROXINE GT SCH (06:32)
[2018-09-19] MEDS: hydrALAZINE HCL 50 MG TABLET (FP) GT SCH ×3 (06:38→22:13)
[2018-09-19] MEDS: ALBUTEROL SO4 2.5/IPRATROPIUM 0.5 INH SOL 3 ML VIAL.NEB. NEB PRN ×2 (07:40→16:10)
--- NOTE | 2018-09-19 08:58 | DS ---
Physical Examination Vital Signs: Vital Signs Temperature 97.1 F L 09/19/18 05:00 Pulse Rate 93 H 09/19/18 07:59 Respiratory Rate 14 09/19/18 06:35 Blood Pressure 138/72 09/19/18 06:43 O2 Sat by Pulse Oximetry (%) 97 09/19/18 07:59 Findings/Remarks: Ms. Wood is a 53yo F with PMH significant for advanced MS (30 years), on trach collar with vent at night, 2L home O2, with G-tube, chronic hyponatremia, hypothyroidism, trigeminal neuralgia, recurrent UTI, wheelchair bound, presenting with 2 days of increasing amounts of secretions requiring frequent suctioning. Has not been requiring lasix at home. Sent urine via PCP over the weekend, reported negative - pt gets straight cathed, denies abdominal pain / fullness. Denies fever, chills, night sweats, chest pain, headache, wheezes, cough. Pt endorses throat pain over the weekend. Constitutional: Yes: No Distress, Calm Eyes: Yes: Conjunctiva Clear HENT: Yes: Atraumatic Neck: Yes: Other (trach) Cardiovascular: Yes: Regular Rate and Rhythm Respiratory: Yes: Regular, Diminished, Other (O2 via trach collar) Gastrointestinal: Yes: Normal Bowel Sounds, Soft Musculoskeletal: Yes: Muscle Weakness Extremities: Yes: WNL Edema: No Neurological: Yes: Alert, Pre-Existing Deficit Psychiatric: Yes: Alert, Oriented Labs: CBC, BMP 09/16/18 07:00 09/17/18 06:30 Microbiology 09/13/18 06:25 Sputum - Endotrachea Suction/Ventilator Gram Stain - Final 09/13/18 06:25 Sputum - Endotrachea Suction/Ventilator Sputum Culture - Final Pseudomonas Aeruginosa Proteus Mirabilis 09/13/18 05:53 Blood - Peripheral Venous Blood Culture - Final NO GROWTH AFTER 5 DAYS INCUBATION 09/13/18 06:10 Blood - Peripheral Venous Blood Culture - Final NO GROWTH AFTER 5 DAYS INCUBATION 09/12/18 19:20 Urine - Urine - Catheterized Urine Culture - Final Contaminated: Please Repeat Discharge Summary Reason For Visit: HYPONATREMIA Current Active Problems Hyponatremia (Acute) Hospital Course: see problem list Laboratory Tests 09/12/18 09/12/18 09/12/18 13:40 13:40 15:24 WBC 7.8 RBC 2.80 L Hgb 8.7 L Hct 26.1 L MCV 93.1 MCH 31.2 MCHC 33.5 RDW 16.2 H Plt Count 127 L D MPV 9.0 Absolute Neuts (auto) 6.2 Total Counted Neutrophils % 79.5 Neutrophils % (Manual) Lymphocytes % 11.5 Lymphocytes % (Manual) Monocytes % 6.4 Monocytes % (Manual) Eosinophils % 2.5 Eosinophils % (Manual) Basophils % 0.1 Nucleated RBC % 0 Metamyelocytes Platelet Estimate Platelet Comment PT with INR INR PTT (Actin FS) Sodium 116 L* 116 L* Potassium 4.4 4.4 Chloride 81 L 80 L Carbon Dioxide 29 30 Anion Gap 6 L 6 L BUN 16.0 15.7 Creatinine 0.3 L 0.2 L Est GFR (CKD-EPI)AfAm 150.44 171.91 Est GFR (CKD-EPI)NonAf 129.80 148.33 POC Glucometer Random Glucose 82 81 Serum Osmolality Lactic Acid Uric Acid Calcium 8.1 L 8.2 L Phosphorus Magnesium Iron TIBC Iron Saturation Unsaturated IBC Ferritin Total Bilirubin 0.2 0.1 L AST 24 25 ALT 41 38 Alkaline Phosphatase 265 H 251 H Creatine Kinase 82 Troponin I < 0.02 B-Natriuretic Peptide 2284.3 H Total Protein 7.4 7.2 Albumin 2.3 L 2.2 L Serum Folate TSH Free T4 Urine Color Urine Appearance Urine pH Ur Specific [place] Urine Protein Urine Glucose (UA) Urine Ketones Urine Blood Urine Nitrite Urine Bilirubin Urine Urobilinogen Ur Leukocyte Esterase Urine WBC (Auto) Urine RBC (Auto) Urine Casts (Auto) U Pathogenic Cast Auto U Epithel Cells (Auto) Urine Bacteria (Auto) Urine Osmolality Ur Random Sodium Ur Sodium 24 Hour Carbamazepine OSEI Screen Blood Type Antibody Screen Crossmatch 09/12/18 09/12/18 09/12/18 16:16 17:17 17:17 WBC RBC Hgb Hct MCV MCH MCHC RDW Plt Count MPV Absolute Neuts (auto) Total Counted Neutrophils % Neutrophils % (Manual) Lymphocytes % Lymphocytes % (Manual) Monocytes % Monocytes % (Manual) Eosinophils % Eosinophils % (Manual) Basophils % Nucleated RBC % Metamyelocytes Platelet Estimate Platelet Comment PT with INR INR PTT (Actin FS) Sodium Potassium Chloride Carbon Dioxide Anion Gap BUN Creatinine Est GFR (CKD-EPI)AfAm Est GFR (CKD-EPI)NonAf POC Glucometer Random Glucose Serum Osmolality 242 L Lactic Acid Uric Acid Calcium Phosphorus Magnesium Iron TIBC Iron Saturation Unsaturated IBC Ferritin Total Bilirubin AST ALT Alkaline Phosphatase Creatine Kinase Troponin I B-Natriuretic Peptide Total Protein Albumin Serum Folate TSH Free T4 Urine Color Yellow Urine Appearance Turbid Urine pH 7.0 Ur Specific [place] 1.016 Urine Protein 2+ H Urine Glucose (UA) Negative Urine Ketones Negative Urine Blood 2+ H Urine Nitrite Negative Urine Bilirubin Negative Urine Urobilinogen 0.2 Ur Leukocyte Esterase 3+ H Urine WBC (Auto) 2944 Urine RBC (Auto) Urine Casts (Auto) 75 U Pathogenic Cast Auto None seen U Epithel Cells (Auto) 29.1 Urine Bacteria (Auto) 758.3 Urine Osmolality 488 Ur Random Sodium Ur Sodium 24 Hour Cancelled Carbamazepine OSEI Screen Blood Type Antibody Screen Crossmatch 09/12/18 09/12/18 09/12/18 20:30 21:30 21:30 WBC RBC Hgb Hct MCV MCH MCHC RDW Plt Count MPV Absolute Neuts (auto) Total Counted Neutrophils % Neutrophils % (Manual) Lymphocytes % Lymphocytes % (Manual) Monocytes % Monocytes % (Manual) Eosinophils % Eosinophils % (Manual) Basophils % Nucleated RBC % Metamyelocytes Platelet Estimate Platelet Comment PT with INR INR PTT (Actin FS) Sodium 119 L Potassium 4.2 Chloride 82 L Carbon Dioxide 32 Anion Gap 5 L BUN 13.3 Creatinine 0.3 L Est GFR (CKD-EPI)AfAm 150.44 Est GFR (CKD-EPI)NonAf 129.80 POC Glucometer Random Glucose 72 L Serum Osmolality Lactic Acid Uric Acid 1.2 L Calcium 8.0 L Phosphorus Magnesium Iron TIBC Iron Saturation Unsaturated IBC Ferritin Total Bilirubin AST ALT Alkaline Phosphatase Creatine Kinase Troponin I B-Natriuretic Peptide Total Protein Albumin Serum Folate TSH Free T4 Urine Color Urine Appearance Urine pH Ur Specific [place] Urine Protein Urine Glucose (UA) Urine Ketones Urine Blood Urine Nitrite Urine Bilirubin Urine Urobilinogen Ur Leukocyte Esterase Urine WBC (Auto) Urine RBC (Auto) Urine Casts (Auto) U Pathogenic Cast Auto U Epithel Cells (Auto) Urine Bacteria (Auto) Urine Osmolality 465 Ur Random Sodium 67 Ur Sodium 24 Hour Carbamazepine OSEI Screen Blood Type Antibody Screen Crossmatch 09/12/18 09/13/18 09/13/18 21:30 01:20 01:20 WBC 4.3 RBC 2.35 L Hgb 7.5 L Hct 21.6 L D MCV 92.0 MCH 31.9 MCHC 34.7 RDW 16.1 H Plt Count 102 L MPV 9.7 Absolute Neuts (auto) 2.6 Total Counted 100 Neutrophils % 58.0 D Neutrophils % (Manual) 58.0 Lymphocytes % 36.0 D Lymphocytes % (Manual) 36.0 D Monocytes % 4.0 Monocytes % (Manual) 4 D Eosinophils % 1.0 Eosinophils % (Manual) 1.0 D Basophils % Nucleated RBC % 0 Metamyelocytes 1 D Platelet Estimate Slt decrease Platelet Comment No clotting detected PT with INR INR PTT (Actin FS) Sodium 121 L Potassium 4.1 Chloride 84 L Carbon Dioxide 28 Anion Gap 9 BUN 15.1 Creatinine 0.3 L Est GFR (CKD-EPI)AfAm 150.44 Est GFR (CKD-EPI)NonAf 129.80 POC Glucometer Random Glucose 65 L Serum Osmolality Lactic Acid Uric Acid Calcium 7.7 L Phosphorus Magnesium Iron TIBC Iron Saturation Unsaturated IBC Ferritin Total Bilirubin AST ALT Alkaline Phosphatase Creatine Kinase Troponin I B-Natriuretic Peptide Total Protein Albumin Serum Folate TSH Free T4 Cancelled Urine Color Yellow Urine Appearance Turbid Urine pH 6.0 Ur Specific [place] 1.015 Urine Protein 2+ H Urine Glucose (UA) 1+ H Urine Ketones Negative Urine Blood 1+ H Urine Nitrite Negative Urine Bilirubin Negative Urine Urobilinogen 0.2 Ur Leukocyte Esterase 3+ H Urine WBC (Auto) 886 Urine RBC (Auto) 18.4 Urine Casts (Auto) 3 U Pathogenic Cast Auto U Epithel Cells (Auto) 12.9 Urine Bacteria (Auto) 1303.4 Urine Osmolality Ur Random Sodium Ur Sodium 24 Hour Carbamazepine OSEI Screen Blood Type Antibody Screen Crossmatch 09/13/18 09/13/18 09/13/18 01:20 05:53 05:53 WBC 3.2 L RBC 2.45 L Hgb 7.7 L Hct 22.8 L MCV 93.1 MCH 31.6 MCHC 33.9 RDW 16.1 H Plt Count 100 L MPV 9.0 Absolute Neuts (auto) Total Counted Neutrophils % Neutrophils % (Manual) Lymphocytes % Lymphocytes % (Manual) Monocytes % Monocytes % (Manual) Eosinophils % Eosinophils % (Manual) Basophils % Nucleated RBC % Metamyelocytes Platelet Estimate Platelet Comment PT with INR 12.40 INR 1.05 PTT (Actin FS) 34.9 Sodium Potassium Chloride Carbon Dioxide Anion Gap BUN Creatinine Est GFR (CKD-EPI)AfAm Est GFR (CKD-EPI)NonAf POC Glucometer Random Glucose Serum Osmolality Lactic Acid 0.6 Uric Acid Calcium Phosphorus Magnesium Iron TIBC Iron Saturation Unsaturated IBC Ferritin Total Bilirubin AST ALT Alkaline Phosphatase Creatine Kinase Troponin I B-Natriuretic Peptide Total Protein Albumin Serum Folate TSH Free T4 Urine Color Urine Appearance Urine pH Ur Specific [place] Urine Protein Urine Glucose (UA) Urine Ketones Urine Blood Urine Nitrite Urine Bilirubin Urine Urobilinogen Ur Leukocyte Esterase Urine WBC (Auto) Urine RBC (Auto) Urine Casts (Auto) U Pathogenic Cast Auto U Epithel Cells (Auto) Urine Bacteria (Auto) Urine Osmolality Ur Random Sodium Ur Sodium 24 Hour Carbamazepine OSEI Screen Blood Type Antibody Screen Crossmatch 09/13/18 09/13/18 09/13/18 05:53 12:20 18:30 WBC RBC Hgb Hct MCV MCH MCHC RDW Plt Count MPV Absolute Neuts (auto) Total Counted Neutrophils % Neutrophils % (Manual) Lymphocytes % Lymphocytes % (Manual) Monocytes % Monocytes % (Manual) Eosinophils % Eosinophils % (Manual) Basophils % Nucleated RBC % Metamyelocytes Platelet Estimate Platelet Comment PT with INR INR PTT (Actin FS) Sodium 118 L* 120 L 127 L Potassium 4.3 Chloride 83 L Carbon Dioxide 28 Anion Gap 6 L BUN 16.2 Creatinine 0.3 L Est GFR (CKD-EPI)AfAm 150.44 Est GFR (CKD-EPI)NonAf 129.80 POC Glucometer Random Glucose 88 Serum Osmolality Lactic Acid Uric Acid Calcium 7.7 L Phosphorus 3.3 Magnesium 1.5 L Iron TIBC Iron Saturation Unsaturated IBC Ferritin Total Bilirubin 0.2 AST 24 ALT 35 Alkaline Phosphatase 214 H Creatine Kinase Troponin I B-Natriuretic Peptide Total Protein 6.6 Albumin 2.0 L Serum Folate TSH 9.98 H Free T4 1.05 Urine Color Urine Appearance Urine pH Ur Specific [place] Urine Protein Urine Glucose (UA) Urine Ketones Urine Blood Urine Nitrite Urine Bilirubin Urine Urobilinogen Ur Leukocyte Esterase Urine WBC (Auto) Urine RBC (Auto) Urine Casts (Auto) U Pathogenic Cast Auto U Epithel Cells (Auto) Urine Bacteria (Auto) Urine Osmolality Ur Random Sodium Ur Sodium 24 Hour Carbamazepine OSEI Screen Blood Type Antibody Screen Crossmatch 09/13/18 09/14/18 09/14/18 21:10 05:50 05:50 WBC 2.7 L RBC 2.17 L Hgb 6.9 L* Hct 20.7 L MCV 95.7 MCH 31.7 MCHC 33.1 RDW 16.5 H Plt Count 98 L MPV 9.2 Absolute Neuts (auto) Total Counted Neutrophils % Neutrophils % (Manual) Lymphocytes % Lymphocytes % (Manual) Monocytes % Monocytes % (Manual) Eosinophils % Eosinophils % (Manual) Basophils % Nucleated RBC % Metamyelocytes Platelet Estimate Platelet Comment PT with INR INR PTT (Actin FS) Sodium 131 L Potassium Chloride Carbon Dioxide Anion Gap BUN Creatinine Est GFR (CKD-EPI)AfAm Est GFR (CKD-EPI)NonAf POC Glucometer Random Glucose Serum Osmolality Lactic Acid Uric Acid Calcium Phosphorus Magnesium Iron TIBC Iron Saturation Unsaturated IBC Ferritin Total Bilirubin AST ALT Alkaline Phosphatase Creatine Kinase Troponin I B-Natriuretic Peptide Total Protein Albumin Serum Folate TSH Free T4 Urine Color Urine Appearance Urine pH Ur Specific [place] Urine Protein Urine Glucose (UA) Urine Ketones Urine Blood Urine Nitrite Urine Bilirubin Urine Urobilinogen Ur Leukocyte Esterase Urine WBC (Auto) Urine RBC (Auto) Urine Casts (Auto) U Pathogenic Cast Auto U Epithel Cells (Auto) Urine Bacteria (Auto) Urine Osmolality Ur Random Sodium Ur Sodium 24 Hour Carbamazepine 7.7 OSEI Screen Blood Type Antibody Screen Crossmatch 09/14/18 09/14/18 09/14/18 05:50 05:50 07:51 WBC RBC Hgb Hct MCV MCH MCHC RDW Plt Count MPV Absolute Neuts (auto) Total Counted Neutrophils % Neutrophils % (Manual) Lymphocytes % Lymphocytes % (Manual) Monocytes % Monocytes % (Manual) Eosinophils % Eosinophils % (Manual) Basophils % Nucleated RBC % Metamyelocytes Platelet Estimate Platelet Comment PT with INR INR PTT (Actin FS) Sodium 129 L Potassium 4.0 Chloride 92 L Carbon Dioxide 32 Anion Gap 6 L BUN 22.3 H Creatinine 0.4 L Est GFR (CKD-EPI)AfAm 136.86 Est GFR (CKD-EPI)NonAf 118.08 POC Glucometer Random Glucose 104 Serum Osmolality Lactic Acid Uric Acid Calcium 7.9 L Phosphorus Magnesium 2.2 Iron 68 TIBC 208 L Iron Saturation 33 Unsaturated IBC 140 Ferritin 953.6 H Total Bilirubin 0.2 AST 17 ALT 27 Alkaline Phosphatase 206 H Creatine Kinase Troponin I B-Natriuretic Peptide Total Protein 5.9 L Albumin 1.9 L Serum Folate TSH Free T4 Urine Color Urine Appearance Urine pH Ur Specific [place] Urine Protein Urine Glucose (UA) Urine Ketones Urine Blood Urine Nitrite Urine Bilirubin Urine Urobilinogen Ur Leukocyte Esterase Urine WBC (Auto) Urine RBC (Auto) Urine Casts (Auto) U Pathogenic Cast Auto U Epithel Cells (Auto) Urine Bacteria (Auto) Urine Osmolality Ur Random Sodium Ur Sodium 24 Hour Carbamazepine OSEI Screen Blood Type O POSITIVE Antibody Screen Negative Crossmatch See Detail 09/14/18 09/14/18 09/14/18 10:59 10:59 17:00 WBC 4.0 RBC 2.49 L Hgb 7.9 L Hct 23.5 L MCV 94.3 MCH 31.7 MCHC 33.6 RDW 16.4 H Plt Count 127 L D MPV 9.1 Absolute Neuts (auto) 2.6 Total Counted Neutrophils % 65.7 Neutrophils % (Manual) Lymphocytes % 12.3 D Lymphocytes % (Manual) Monocytes % 12.0 H D Monocytes % (Manual) Eosinophils % 9.7 H D Eosinophils % (Manual) Basophils % 0.3 Nucleated RBC % 0 Metamyelocytes Platelet Estimate Platelet Comment PT with INR INR PTT (Actin FS) Sodium 127 L 127 L Potassium Chloride Carbon Dioxide Anion Gap BUN Creatinine Est GFR (CKD-EPI)AfAm Est GFR (CKD-EPI)NonAf POC Glucometer Random Glucose Serum Osmolality Lactic Acid Uric Acid Calcium Phosphorus Magnesium Iron TIBC Iron Saturation Unsaturated IBC Ferritin Total Bilirubin AST ALT Alkaline Phosphatase Creatine Kinase Troponin I B-Natriuretic Peptide Total Protein Albumin Serum Folate TSH Free T4 Urine Color Urine Appearance Urine pH Ur Specific [place] Urine Protein Urine Glucose (UA) Urine Ketones Urine Blood Urine Nitrite Urine Bilirubin Urine Urobilinogen Ur Leukocyte Esterase Urine WBC (Auto) Urine RBC (Auto) Urine Casts (Auto) U Pathogenic Cast Auto U Epithel Cells (Auto) Urine Bacteria (Auto) Urine Osmolality Ur Random Sodium Ur Sodium 24 Hour Carbamazepine OSEI Screen Blood Type Antibody Screen Crossmatch 09/15/18 09/15/18 09/15/18 09:20 09:20 09:20 WBC 6.1 RBC 2.47 L Hgb 7.8 L Hct 23.3 L MCV 94.6 MCH 31.6 MCHC 33.4 RDW 16.5 H Plt Count 135 MPV 9.4 Absolute Neuts (auto) 4.9 Total Counted Neutrophils % 80.4 D Neutrophils % (Manual) Lymphocytes % 8.1 D Lymphocytes % (Manual) Monocytes % 5.7 Monocytes % (Manual) Eosinophils % 5.6 H Eosinophils % (Manual) Basophils % 0.2 Nucleated RBC % 0 Metamyelocytes Platelet Estimate Platelet Comment PT with INR INR PTT (Actin FS) Sodium Potassium Chloride Carbon Dioxide Anion Gap BUN Creatinine Est GFR (CKD-EPI)AfAm Est GFR (CKD-EPI)NonAf POC Glucometer Random Glucose Serum Osmolality Lactic Acid Uric Acid Calcium Phosphorus Magnesium Iron TIBC Iron Saturation Unsaturated IBC Ferritin Total Bilirubin AST ALT Alkaline Phosphatase Creatine Kinase Troponin I B-Natriuretic Peptide Total Protein Albumin Serum Folate 19 H TSH Free T4 Urine Color Urine Appearance Urine pH Ur Specific [place] Urine Protein Urine Glucose (UA) Urine Ketones Urine Blood Urine Nitrite Urine Bilirubin Urine Urobilinogen Ur Leukocyte Esterase Urine WBC (Auto) Urine RBC (Auto) Urine Casts (Auto) U Pathogenic Cast Auto U Epithel Cells (Auto) Urine Bacteria (Auto) Urine Osmolality Ur Random Sodium Ur Sodium 24 Hour Carbamazepine OSEI Screen Negative Blood Type Antibody Screen Crossmatch 09/15/18 09/15/18 09/15/18 16:05 16:05 18:47 WBC RBC Hgb Hct MCV MCH MCHC RDW Plt Count MPV Absolute Neuts (auto) Total Counted Neutrophils % Neutrophils % (Manual) Lymphocytes % Lymphocytes % (Manual) Monocytes % Monocytes % (Manual) Eosinophils % Eosinophils % (Manual) Basophils % Nucleated RBC % Metamyelocytes Platelet Estimate Platelet Comment PT with INR INR PTT (Actin FS) Sodium 130 L 128 L Potassium 4.9 Chloride 93 L Carbon Dioxide 34 H Anion Gap 2 L BUN 33.2 H Creatinine 0.5 L Est GFR (CKD-EPI)AfAm 127.17 Est GFR (CKD-EPI)NonAf 109.72 POC Glucometer 137 Random Glucose 46 L* Serum Osmolality Lactic Acid Uric Acid Calcium 8.2 L Phosphorus Magnesium Iron TIBC Iron Saturation Unsaturated IBC Ferritin Total Bilirubin AST ALT Alkaline Phosphatase Creatine Kinase Troponin I B-Natriuretic Peptide Total Protein Albumin Serum Folate TSH Free T4 Urine Color Urine Appearance Urine pH Ur Specific [place] Urine Protein Urine Glucose (UA) Urine Ketones Urine Blood Urine Nitrite Urine Bilirubin Urine Urobilinogen Ur Leukocyte Esterase Urine WBC (Auto) Urine RBC (Auto) Urine Casts (Auto) U Pathogenic Cast Auto U Epithel Cells (Auto) Urine Bacteria (Auto) Urine Osmolality Ur Random Sodium Ur Sodium 24 Hour Carbamazepine OSEI Screen Blood Type Antibody Screen Crossmatch 09/16/18 09/16/18 09/17/18 07:00 07:00 06:30 WBC 6.2 RBC 2.40 L Hgb 7.8 L Hct 22.7 L MCV 94.6 MCH 32.4 MCHC 34.3 RDW 16.5 H Plt Count 160 MPV 9.5 Absolute Neuts (auto) 4.4 Total Counted Neutrophils % 70.9 Neutrophils % (Manual) Lymphocytes % 18.4 D Lymphocytes % (Manual) Monocytes % 7.0 Monocytes % (Manual) Eosinophils % 3.3 Eosinophils % (Manual) Basophils % 0.4 Nucleated RBC % 0 Metamyelocytes Platelet Estimate Platelet Comment PT with INR INR PTT (Actin FS) Sodium 132 L 135 L Potassium 5.2 H 4.8 Chloride 94 L 100 Carbon Dioxide 32 33 H Anion Gap 6 L 2 L BUN 36.2 H 39.8 H Creatinine 0.7 0.6 Est GFR (CKD-EPI)AfAm 113.84 119.77 Est GFR (CKD-EPI)NonAf 98.23 103.34 POC Glucometer Random Glucose 82 138 H Serum Osmolality Lactic Acid Uric Acid Calcium 8.1 L 8.5 Phosphorus 3.6 3.2 Magnesium 2.6 H 2.7 H Iron TIBC Iron Saturation Unsaturated IBC Ferritin Total Bilirubin 0.3 AST 25 ALT 36 Alkaline Phosphatase 226 H Creatine Kinase Troponin I B-Natriuretic Peptide Total Protein 7.3 Albumin 2.3 L Serum Folate TSH Free T4 Urine Color Urine Appearance Urine pH Ur Specific [place] Urine Protein Urine Glucose (UA) Urine Ketones Urine Blood Urine Nitrite Urine Bilirubin Urine Urobilinogen Ur Leukocyte Esterase Urine WBC (Auto) Urine RBC (Auto) Urine Casts (Auto) U Pathogenic Cast Auto U Epithel Cells (Auto) Urine Bacteria (Auto) Urine Osmolality Ur Random Sodium Ur Sodium 24 Hour Carbamazepine OSEI Screen Blood Type Antibody Screen Crossmatch Active Medications Generic Name Dose Route Start Last Admin Trade Name Freq PRN Reason Stop Dose Admin Albuterol/Ipratropium 1 amp 09/14/18 16:54 09/19/18 07:40 Duoneb - NEB 1 amp Q6H PRN Administration SHORT OF BREATH/WHEEZING Amino Acids 30 ml 09/15/18 08:00 09/18/18 10:21 Prosource No Carb Liquid Pkt GT 30 ml DAILY@0800 CATHERINE Administration Amlodipine Besylate 2.5 mg 09/15/18 10:00 09/18/18 10:22 Norvasc - GT 2.5 mg DAILY CATHERINE Administration Ascorbic Acid 500 mg 09/15/18 10:00 09/18/18 10:22 Vitamin C - GT 500 mg DAILY CATHERINE Administration Carbamazepine 200 mg 09/16/18 22:00 09/18/18 21:39 Tegretol - GT 200 mg BID CATHERINE Administration Clonazepam 0.5 mg 09/14/18 22:00 09/18/18 21:39 Klonopin - GT 0.5 mg HS CATHERINE Administration Heparin Sodium (Porcine) 5,000 unit 09/14/18 22:00 09/18/18 21:39 Heparin - SQ 5,000 unit BID CATHERINE Administration Hydralazine HCl 50 mg 09/14/18 22:00 09/19/18 06:38 Apresoline - GT 50 mg TID CATHERINE Administration Lactobacillus Acidophilus 1 tab 09/14/18 22:00 09/18/18 21:38 Bacid - GT 1 tab BID CATHERINE Administration Levothyroxine Sodium 75 mcg/ 125 mcg 09/15/18 07:00 09/19/18 06:32 Levothyroxine Sodium 50 mcg GT 125 mcg DAILY@0700 CATHERINE Administration Loratadine 10 mg 09/15/18 10:00 09/18/18 10:22 Claritin - GT 10 mg DAILY CATHERINE Administration Mirtazapine 7.5 mg 09/14/18 22:00 09/18/18 21:38 Remeron - GT 7.5 mg HS CATHERINE Administration Pregabalin 100 mg 09/16/18 22:00 09/18/18 21:39 Lyrica - PO 100 mg BID CATHERINE Administration Sertraline HCl 50 mg 09/15/18 10:00 09/18/18 10:22 Zoloft - GT 50 mg DAILY CATHERINE Administration Sodium Chloride 1 gm 09/14/18 22:00 09/18/18 21:39 Sodium Chloride Tablet - GT 1 gm BID CATHERINE Administration Microbiology 09/13/18 06:25 Sputum - Endotrachea Suction/Ventilator Gram Stain - Final 09/13/18 06:25 Sputum - Endotrachea Suction/Ventilator Sputum Culture - Final Pseudomonas Aeruginosa Proteus Mirabilis 09/13/18 05:53 Blood - Peripheral Venous Blood Culture - Final NO GROWTH AFTER 5 DAYS INCUBATION 09/13/18 06:10 Blood - Peripheral Venous Blood Culture - Final NO GROWTH AFTER 5 DAYS INCUBATION 09/12/18 19:20 Urine - Urine - Catheterized Urine Culture - Final Contaminated: Please Repeat Condition: Good - Instructions Diet, Activity, Other Instructions: Follow up with PCP in 1 week of discharge Follow up with Dr Vick as scheduled Follow up with tint layer Dr Doe continue with medication as prescribed return to ER if develop AMS, fever, chest pain, respiratory distress Disposition: HOME - Home Medications Comprehensive Discharge Medication List: Ambulatory Orders Melatonin 2 mg GT HS 05/03/18 Multivitamin [Multiple Vitamins] 1 each GT DAILY 05/03/18 Albuterol 2.5/Ipratropium 0.5 [Duoneb -] 1 amp NEB Q6H PRN #45 amp 05/28/18 Sodium Chloride Tablet - 1 gm GT DAILY #30 tablet 07/25/18 Carbamazepine [Tegretol -] 200 mg GT TIDCM tablet 08/22/18 Levothyroxine [Synthroid -] 100 mcg GT DAILY@0700 tablet 08/22/18 Amino Acids/Protein Hydrolys [Prosource No Carb Liquid Pkt] 30 ml PO DAILY@0800 09/12/18 Amlodipine Besylate [Norvasc -] 5 mg GT DAILY 09/12/18 Ascorbic Acid [Vitamin C -] 500 mg GT DAILY 09/12/18 Lactobacillus Acidophilus [Bacid -] 1 tab GT BID 09/12/18 Loratadine [Claritin -] 10 mg GT DAILY 09/12/18 Mirtazapine [Remeron -] 7.5 mg GT HS 09/12/18 Sertraline HCl [Zoloft -] 50 mg GT DAILY 09/12/18 hydrALAZINE HCL [Apresoline -] 50 mg GT TID 09/12/18 Levothyroxine [Synthroid -] 125 mcg GT DAILY@0700 tablet 09/19/18 Polyethylene Glycol 3350 [Miralax (For Bowel Prep) -] 17 gm PO DAILY #1 bottle 09/19/18
[2018-09-19 09:33] LABS: HEMOGLOBIN 7.6 GM/dL (10.7-15.3); MCH 32.1 pg (25.7-33.7); MCHC 33.3 g/dl (32.0-36.0); MEAN CELL VOLUME 96.4 fl (80-96); RBC 2.38 M/mm3 (3.60-5.2); RDW 16.6 % (11.6-15.6); WHITE BLOOD COUNT 9.5 K/mm3 (4.0-10.0)
[2018-09-19 10:16] LABS: ALBUMIN 2.4 g/dl (3.4-5.0); BILIRUBIN,TOTAL 0.2 mg/dL (0.2-1); BLOOD UREA NITROGEN 39.6 mg/dL (7-18); CALCIUM 9.1 mg/dL (8.5-10.1); CREATININE 0.6 mg/dL (0.55-1.3); POTASSIUM 5.5 mmol/L (3.5-5.1); TOT PROT 7.8 g/dl (6.4-8.2)
[2018-09-19] MEDS ORDERED: PT OWN MED DRAWER 7, Y5N ONE (10:38)
[2018-09-19] MEDS: HEPARIN NA (PORCINE) 5,000 UNITS/ML 1ML VIAL SQ SCH ×2 (10:51→22:13)
[2018-09-19] MEDS: AMINO ACIDS/PROTEIN HYDROLYS 30 ML LIQUID.PKT GT SCH (10:51)
[2018-09-19] MEDS: amLODIPine BESYLATE 2.5 MG TABLET (FP) GT SCH (10:51)
[2018-09-19] MEDS: ASCORBIC ACID 500 MG TABLET (FP) GT SCH (10:51)
[2018-09-19] MEDS: SERTRALINE HCL 50 MG TABLET (FP) GT SCH (10:52)
[2018-09-19] MEDS: PREGABALIN 50 MG CAPSULE PO SCH ×2 (10:52→22:12)
[2018-09-19] MEDS: LACTOBACILLUS ACIDOPHILUS 1 TABLET GT SCH ×2 (10:52→22:13)
[2018-09-19] MEDS: LORATADINE 10 MG TABLET GT SCH (10:52)
[2018-09-19] MEDS: carBAMazepine 200 MG TABLET GT SCH ×2 (10:53→22:12)
[2018-09-19] MEDS: SODIUM CHLORIDE 1 GM TABLET GT SCH ×2 (10:53→22:14)
--- NOTE | 2018-09-19 11:45 | PN ---
Progress Note (short form) - Note Progress Note: PULMONARY On trach collar. Denies shortness of breath. Vital Signs Period Temp Pulse Resp BP Sys/Morillo Pulse Ox Last 24 Hr 97.1 F-98.1 F 62-93 12-20 94-142/40-72 97-98 Gen: NAD on trach collar Heart: RRR Lung: decreased breath sounds at the bases Abd: soft, nontender Ext: no edema CBC, BMP 09/19/18 08:58 09/19/18 08:58 Active Medications Albuterol/Ipratropium (Duoneb -) 1 amp NEB Q6H PRN PRN Reason: SHORT OF BREATH/WHEEZING Last Admin: 09/19/18 07:40 Dose: 1 amp Amino Acids (Prosource No Carb Liquid Pkt) 30 ml GT DAILY@0800 [facility] Last Admin: 09/19/18 10:51 Dose: 30 ml Amlodipine Besylate (Norvasc -) 2.5 mg GT DAILY [facility] Last Admin: 09/19/18 10:51 Dose: 2.5 mg Ascorbic Acid (Vitamin C -) 500 mg GT DAILY [facility] Last Admin: 09/19/18 10:51 Dose: 500 mg Carbamazepine (Tegretol -) 200 mg GT BID [facility] Last Admin: 09/19/18 10:53 Dose: 200 mg Clonazepam (Klonopin -) 0.5 mg GT HS [facility] Last Admin: 09/18/18 21:39 Dose: 0.5 mg Heparin Sodium (Porcine) (Heparin -) 5,000 unit SQ BID [facility] Last Admin: 09/19/18 10:51 Dose: 5,000 unit Hydralazine HCl (Apresoline -) 50 mg GT TID [facility] Last Admin: 09/19/18 06:38 Dose: 50 mg Lactobacillus Acidophilus (Bacid -) 1 tab GT BID [facility] Last Admin: 09/19/18 10:52 Dose: 1 tab Levothyroxine Sodium 75 mcg/ (Levothyroxine Sodium 50 mcg) 125 mcg GT DAILY@ 0700 [facility] Last Admin: 09/19/18 06:32 Dose: 125 mcg Loratadine (Claritin -) 10 mg GT DAILY [facility] Last Admin: 09/19/18 10:52 Dose: 10 mg Mirtazapine (Remeron -) 7.5 mg GT HS [facility] Last Admin: 09/18/18 21:38 Dose: 7.5 mg Pregabalin (Lyrica -) 100 mg PO BID [facility] Last Admin: 09/19/18 10:52 Dose: 100 mg Sertraline HCl (Zoloft -) 50 mg GT DAILY [facility] Last Admin: 09/19/18 10:52 Dose: 50 mg Sodium Chloride (Sodium Chloride Tablet -) 1 gm GT BID [facility] Last Admin: 09/19/18 10:53 Dose: 1 gm A/P Hyponatremia improved Multiple Sclerosis Chronic Respiratory Failure s/p Tracheostomy Functional Quadriplegia Atelectasis HTN Hypothyroidism - fluid restriction - continue salt tabs - chest PT, pulmonary toilet - inhaled bronchodilators - trach collar during day, vent support at night - enteral feeds - DVT/GI prophylaxis
--- NOTE | 2018-09-19 12:33 | PN ---
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 Pt on PMV. Speech weak but audible. Mildly reduced resp capacity for speech, on ventilator. Pending d/c.
[2018-09-19 13:02] LABS: PLATELET COUNT 251 K/MM3 (134-434)
--- NOTE | 2018-09-19 16:11 | PN ---
Progress Note (short form) - Note Progress Note: Renal follow up for hyponatremia Pt seen and examined at the bedside awake and alert no acute complaints no sob, cp, abd pain for blood transfusion today Vital Signs Temperature 97.5 F L 09/19/18 15:46 Pulse Rate 74 09/19/18 15:46 Respiratory Rate 18 09/19/18 15:46 Blood Pressure 119/63 09/19/18 15:46 O2 Sat by Pulse Oximetry (%) 98 09/19/18 14:00 Intake & Output 09/16/18 09/17/18 09/18/18 09/19/18 23:59 23:59 23:59 23:59 Intake Total 873 189 1257 1251 Output Total 2600 2900 3100 1300 Balance -1829 -2480 -1190 -49 NAD on trach collar RRR, no M/R CTA, no rales or wheeze soft NT/ND no LE or sacral edema CBC, BMP 09/19/18 08:58 09/19/18 08:58 Current Medications Albuterol/Ipratropium (Duoneb -) 1 amp NEB Q6H PRN PRN Reason: SHORT OF BREATH/WHEEZING Last Admin: 09/19/18 07:40 Dose: 1 amp Amino Acids (Prosource No Carb Liquid Pkt) 30 ml GT DAILY@0800 [facility] Last Admin: 09/19/18 10:51 Dose: 30 ml Amlodipine Besylate (Norvasc -) 2.5 mg GT DAILY [facility] Last Admin: 09/19/18 10:51 Dose: 2.5 mg Ascorbic Acid (Vitamin C -) 500 mg GT DAILY [facility] Last Admin: 09/19/18 10:51 Dose: 500 mg Carbamazepine (Tegretol -) 200 mg GT BID [facility] Last Admin: 09/19/18 10:53 Dose: 200 mg Clonazepam (Klonopin -) 0.5 mg GT HS [facility] Last Admin: 09/18/18 21:39 Dose: 0.5 mg Heparin Sodium (Porcine) (Heparin -) 5,000 unit SQ BID [facility] Last Admin: 09/19/18 10:51 Dose: 5,000 unit Hydralazine HCl (Apresoline -) 50 mg GT TID [facility] Last Admin: 09/19/18 13:09 Dose: 50 mg Lactobacillus Acidophilus (Bacid -) 1 tab GT BID [facility] Last Admin: 09/19/18 10:52 Dose: 1 tab Levothyroxine Sodium 75 mcg/ (Levothyroxine Sodium 50 mcg) 125 mcg GT DAILY@ 0700 [facility] Last Admin: 09/19/18 06:32 Dose: 125 mcg Loratadine (Claritin -) 10 mg GT DAILY [facility] Last Admin: 09/19/18 10:52 Dose: 10 mg Mirtazapine (Remeron -) 7.5 mg GT HS [facility] Last Admin: 09/18/18 21:38 Dose: 7.5 mg Pregabalin (Lyrica -) 100 mg PO BID [facility] Last Admin: 09/19/18 10:52 Dose: 100 mg Sertraline HCl (Zoloft -) 50 mg GT DAILY [facility] Last Admin: 09/19/18 10:52 Dose: 50 mg Sodium Chloride (Sodium Chloride Tablet -) 1 gm GT BID [facility] Last Admin: 09/19/18 10:53 Dose: 1 gm 53 year old woman with history of multiple sclerosis, respiratory failure on trach, hx of SIADH, neurogenic bladder who presented from home with increased respiratory secretions and found to have hyponatremia with Na of 116. #Hyponatremia secondary to SIADH vs. intravascular volume depletion-less likely #Increased respiratory secretions #Anemia #Multiple sclerosis #Chronic respiratory failure with trach Serum Na is improved continue fluid restriction, tube feeds with free water (as ordered) continue salt tabs BID K is noted to be high today likely due to high potassium intake from oral diet and tube feeds counseled on avoiding high k oral intake (such as Gatorade) if discharged will need repeat blood work done in 3-4 days Tyshawn Liriano DO
[2018-09-19] MEDS: MIRTAZAPINE 15 MG TABLET (FP) GT SCH (22:13)
[2018-09-19] MEDS: clonazePAM 0.5 MG TABLET GT SCH (22:14)
[2018-09-19 22:33] LABS: HEMATOCRIT 25.4 % (32.4-45.2); HEMOGLOBIN 8.5 GM/dL (10.7-15.3); MCH 31.4 pg (25.7-33.7); MCHC 33.2 g/dl (32.0-36.0); MEAN CELL VOLUME 94.6 fl (80-96); MEAN PLT VOLUME 8.7 fl (7.5-11.1); PLATELET COUNT 223 K/MM3 (134-434); RBC 2.69 M/mm3 (3.60-5.2); WHITE BLOOD COUNT 7.6 K/mm3 (4.0-10.0)
[2018-09-20] MEDS ORDERED: LEVOTHYROXINE NA 50 MCG TABLET (FP) ONE (06:22)
[2018-09-20] MEDS ORDERED: LEVOTHYROXINE NA 75 MCG TABLET (FP) ONE (06:22)
[2018-09-20] MEDS: hydrALAZINE HCL 50 MG TABLET (FP) GT SCH ×4 (06:33→22:54)
[2018-09-20] MEDS: LEVOTHYROXINE GT SCH (06:33)
[2018-09-20 07:58] LABS: BASO % 0.3 % (0-2.0); EOS % 7.6 % (0-4.5); HEMOGLOBIN 8.5 GM/dL (10.7-15.3); LYMPH % 15.7 % (8-40); MCH 31.8 pg (25.7-33.7); MCHC 34.1 g/dl (32.0-36.0); MEAN CELL VOLUME 93.4 fl (80-96); MEAN PLT VOLUME 8.5 fl (7.5-11.1); MONO % 10.7 % (3.8-10.2); NEUT % 65.7 % (42.8-82.8); RBC 2.67 M/mm3 (3.60-5.2); RDW 17.5 % (11.6-15.6); WHITE BLOOD COUNT 5.2 K/mm3 (4.0-10.0)
[2018-09-20 08:44] LABS: ALBUMIN 2.3 g/dl (3.4-5.0); BILIRUBIN,TOTAL 0.2 mg/dL (0.2-1); BLOOD UREA NITROGEN 40.5 mg/dL (7-18); CALCIUM 8.9 mg/dL (8.5-10.1); CREATININE 0.5 mg/dL (0.55-1.3); POTASSIUM 5.5 mmol/L (3.5-5.1); TOT PROT 7.5 g/dl (6.4-8.2)
--- NOTE | 2018-09-20 08:47 | PN ---
Progress Note (short form) - Note Progress Note: NEUROLOGY PROGRESS: Events reviewed and discussed with Dr. Ketan Lopez. Pt examined with her mother at the bedside. Feeling stronger after 1 unit packed RBC's. NO FACIAL PAIN on current regimen of Lyrica 100 mg q12hrs and Tegretol 200 mg q 12 hrs. Patient is able to lay on her cheek and her mother can touch and stroke her cheek without pain. EXAM: Unchanged. Fluent speech. Good comprehension Full EOM's without Nystagmus. Shallow spontaneous respirations mostly using accessory musculature. Tetraplegia/areflexia Feels touch above the knees. IMP: Advanced MS Trigeminal Neuralgia Hyponatremia due to Carbamazepine. Plan: Increase Pregabalin to 150 mg PO q 12 hrs Decrease carbamazepine to 100 mg q 12 hrs then D/C in 1 week. Stable for D/C. Neuro f/u as out patient. Thank you very much, Rom Conroy MD
--- NOTE | 2018-09-20 09:22 | PN ---
Progress Note, Physician - Current Medication List Current Medications: Active Medications Amino Acids (Prosource No Carb Liquid Pkt) 30 ml GT DAILY@0800 [facility] Last Admin: 09/19/18 10:51 Dose: 30 ml Amlodipine Besylate (Norvasc -) 2.5 mg GT DAILY [facility] Last Admin: 09/19/18 10:51 Dose: 2.5 mg Ascorbic Acid (Vitamin C -) 500 mg GT DAILY [facility] Last Admin: 09/19/18 10:51 Dose: 500 mg Carbamazepine (Tegretol -) 200 mg GT BID [facility] Last Admin: 09/19/18 22:12 Dose: 200 mg Clonazepam (Klonopin -) 0.5 mg GT HS [facility] Last Admin: 09/19/18 22:14 Dose: 0.5 mg Heparin Sodium (Porcine) (Heparin -) 5,000 unit SQ BID [facility] Last Admin: 09/19/18 22:13 Dose: 5,000 unit Hydralazine HCl (Apresoline -) 50 mg GT TID [facility] Last Admin: 09/20/18 06:33 Dose: 50 mg Lactobacillus Acidophilus (Bacid -) 1 tab GT BID [facility] Last Admin: 09/19/18 22:13 Dose: 1 tab Levothyroxine Sodium 75 mcg/ (Levothyroxine Sodium 50 mcg) 125 mcg GT DAILY@ 0700 [facility] Last Admin: 09/20/18 06:33 Dose: 125 mcg Loratadine (Claritin -) 10 mg GT DAILY [facility] Last Admin: 09/19/18 10:52 Dose: 10 mg Mirtazapine (Remeron -) 7.5 mg GT HS [facility] Last Admin: 09/19/18 22:13 Dose: 7.5 mg Pregabalin (Lyrica -) 100 mg PO BID [facility] Last Admin: 09/19/18 22:12 Dose: 100 mg Sertraline HCl (Zoloft -) 50 mg GT DAILY [facility] Last Admin: 09/19/18 10:52 Dose: 50 mg Sodium Chloride (Sodium Chloride Tablet -) 1 gm GT BID [facility] Last Admin: 09/19/18 22:14 Dose: 1 gm - Objective Vital Signs: Vital Signs Temperature 97.6 F 09/20/18 06:00 Pulse Rate 73 09/20/18 06:00 Respiratory Rate 12 09/20/18 08:00 Blood Pressure 127/69 09/20/18 06:00 O2 Sat by Pulse Oximetry (%) 97 09/20/18 08:00 Labs: CBC, BMP 09/20/18 07:30 INR, PTT INR 1.05 (0.83-1.09) 09/13/18 05:53 Assessment/Plan - Problems (1) Acute on chronic respiratory failure with hypoxia and hypercapnia Assessment/Plan: -Pulm on board -mechanically ventilated with trial periods of breathing with O2 via trach collar -keep SpO2 >90% -bronchodilators Code(s): J96.21 - ACUTE AND CHRONIC RESPIRATORY FAILURE WITH HYPOXIA; J96.22 - ACUTE AND CHRONIC RESPIRATORY FAILURE WITH HYPERCAPNIA (2) Altered mental status Assessment/Plan: -resolved Code(s): R41.82 - ALTERED MENTAL STATUS, UNSPECIFIED (3) Anemia Assessment/Plan: -Hg 8.5 pot prbc -hematology consult -monitor Hg Code(s): D64.9 - ANEMIA, UNSPECIFIED Qualifiers: Other causes of anemia: other cause, not classified (4) Functional quadriplegia secondary to MS Assessment/Plan: -fall precaution -reposition q2h Code(s): G35 - MULTIPLE SCLEROSIS; R53.2 - FUNCTIONAL QUADRIPLEGIA (5) HTN (hypertension) Assessment/Plan: -Norvasc -hold if SBP <100 and/or DBP <60 Code(s): I10 - ESSENTIAL (PRIMARY) HYPERTENSION (6) Hx of multiple sclerosis Assessment/Plan: -PT -fall precaution Code(s): Z86.69 - PERSONAL HISTORY OF DIS OF THE NERVOUS SYS AND SENSE ORGANS (7) Hyponatremia Assessment/Plan: -Na 135 -renal on board -Sodium Chloride tablet -monitor Na daily Code(s): E87.1 - HYPO-OSMOLALITY AND HYPONATREMIA (8) Hypothyroid Assessment/Plan: -Levothyroxine Code(s): E03.9 - HYPOTHYROIDISM, UNSPECIFIED (9) Multiple drug resistant organism (MDRO) culture positive Assessment/Plan: -contact precautions -BC neg -positive sputum culture Code(s): Z16.24 - RESISTANCE TO MULTIPLE ANTIBIOTICS (10) Hypothermia Assessment/Plan: -monitor temp -kinsey hugger as needed for temp <96F Code(s): T68.XXXA - HYPOTHERMIA, INITIAL ENCOUNTER (11) Abnormal LFt Assessment/Plan: Repeat--Gi consult US
[2018-09-20 09:33] LABS: PLATELET COUNT 235 K/MM3 (134-434)
[2018-09-20] MEDS ORDERED: PT OWN MED DRAWER 7, Y5N ONE ×2 (10:07→22:49)
[2018-09-20] MEDS: AMINO ACIDS/PROTEIN HYDROLYS 30 ML LIQUID.PKT GT SCH (10:22)
[2018-09-20] MEDS: SODIUM CHLORIDE 1 GM TABLET GT SCH ×2 (10:23→23:40)
[2018-09-20] MEDS: SERTRALINE HCL 50 MG TABLET (FP) GT SCH (10:23)
[2018-09-20] MEDS: HEPARIN NA (PORCINE) 5,000 UNITS/ML 1ML VIAL SQ SCH ×2 (10:23→22:55)
[2018-09-20] MEDS: LORATADINE 10 MG TABLET GT SCH (10:23)
[2018-09-20] MEDS: PREGABALIN 50 MG CAPSULE PO SCH ×2 (10:23→22:55)
[2018-09-20] MEDS: amLODIPine BESYLATE 2.5 MG TABLET (FP) GT SCH (10:23)
[2018-09-20] MEDS: carBAMazepine 200 MG TABLET GT SCH ×2 (10:23→23:40)
[2018-09-20] MEDS: ASCORBIC ACID 500 MG TABLET (FP) GT SCH (10:23)
[2018-09-20] MEDS: LACTOBACILLUS ACIDOPHILUS 1 TABLET GT SCH ×2 (10:23→22:54)
--- NOTE | 2018-09-20 11:33 | PN ---
Progress Note (short form) - Note Progress Note: PULMONARY On trach collar. Denies shortness of breath. Vital Signs Period Temp Pulse Resp BP Sys/Morillo Pulse Ox Last 24 Hr 97.5 F-98.2 F 54-102 12-18 103-161/52-78 97-100 Gen: NAD on trach collar Heart: RRR Lung: scattered rhonchi Abd: soft, nontender Ext: no edema CBC, BMP 09/20/18 07:30 09/20/18 07:30 Active Medications Amino Acids (Prosource No Carb Liquid Pkt) 30 ml GT DAILY@0800 [facility] Last Admin: 09/20/18 10:22 Dose: 30 ml Amlodipine Besylate (Norvasc -) 2.5 mg GT DAILY [facility] Last Admin: 09/20/18 10:23 Dose: 2.5 mg Ascorbic Acid (Vitamin C -) 500 mg GT DAILY [facility] Last Admin: 09/20/18 10:23 Dose: 500 mg Carbamazepine (Tegretol -) 200 mg GT BID [facility] Last Admin: 09/20/18 10:23 Dose: 200 mg Clonazepam (Klonopin -) 0.5 mg GT HS [facility] Last Admin: 09/19/18 22:14 Dose: 0.5 mg Heparin Sodium (Porcine) (Heparin -) 5,000 unit SQ BID [facility] Last Admin: 09/20/18 10:23 Dose: 5,000 unit Hydralazine HCl (Apresoline -) 50 mg GT TID [facility] Last Admin: 09/20/18 06:33 Dose: 50 mg Lactobacillus Acidophilus (Bacid -) 1 tab GT BID [facility] Last Admin: 09/20/18 10:23 Dose: 1 tab Levothyroxine Sodium 75 mcg/ (Levothyroxine Sodium 50 mcg) 125 mcg GT DAILY@ 0700 [facility] Last Admin: 09/20/18 06:33 Dose: 125 mcg Loratadine (Claritin -) 10 mg GT DAILY [facility] Last Admin: 09/20/18 10:23 Dose: 10 mg Mirtazapine (Remeron -) 7.5 mg GT HS [facility] Last Admin: 09/19/18 22:13 Dose: 7.5 mg Pregabalin (Lyrica -) 100 mg PO BID [facility] Last Admin: 09/20/18 10:23 Dose: 100 mg Sertraline HCl (Zoloft -) 50 mg GT DAILY [facility] Last Admin: 09/20/18 10:23 Dose: 50 mg Sodium Chloride (Sodium Chloride Tablet -) 1 gm GT BID [facility] Last Admin: 09/20/18 10:23 Dose: 1 gm A/P Hyponatremia improved Elevated LFTs Multiple Sclerosis Chronic Respiratory Failure s/p Tracheostomy Functional Quadriplegia Atelectasis HTN Hypothyroidism - for RUQ sono - fluid restriction - continue salt tabs - chest PT, pulmonary toilet - inhaled bronchodilators - trach collar during day, vent support at night - enteral feeds - DVT/GI prophylaxis
--- NOTE | 2018-09-20 15:50 | CON.GI ---
Consult Consult Specialty:: Gastroenterology Referred by:: Dr. Lopez Reason for Consultation:: Abnormal LFTs - History of Present Illness Chief Complaint: Copious secretions History of Present Illness: 53F is admitted iw Na 118 and for management of copious respiratory secretions. Her LFTs were normal on admission but has been steadily rising. Brianna uis off the ventilator with her mother and sister Erinn at the bedside. She denies abdominal pain, nausea or vomiting. There is no known h/o liver disease. No recent changes in medication and her Tegretol level is therapeutic. Her sister Erinn is an RN an Geetha's health care proxy. Geetha is known to have gallstones. She is known to have a chronic transfusion requiring anemia and apparently had a colonoscopy remotely. She has been followed by Dr Hector and Dr Dangelo in the past. She had an IR placement of her G tube. - History Source History Provided By: Patient, Family Member, Medical Record Limitations to Obtaining History: Other (slightly lethargic on Lyrica) - Past Medical History BRICK BURNER HEAD: Yes: Multiple Sclerosis (quadraplegia), Other (legally blind, trigeminal neuralgia -> baclofen pump) Cardio/Vascular: Yes: HTN, Hyperlipdemia, Pulmonary Hypertension (by echo) Pulmonary: Yes: Pneumonia, Previously Intubated, Other (vent dependent at night) Gastrointestinal: Yes: Constipation (chronic), GI Bleed, Other (IR placed G tube ) Hepatobiliary: Yes: Cholelithiasis Renal/: Yes: Neurogenic Bladder ( neurogenic bladder, chronic perera catheter) , UTI ...LMP: 06/07/12 Heme/Onc: Yes: Anemia (transfusion requiring, has raw decubiti) Infectious Disease: Yes: Other (pneumonia, uti treated by urologist) Musculoskeletal: Yes: Other (Quadriplegia) Dermatology: Yes: Other (chronic decubitus followed by wound care) Additional Medical History: trigeminal neuralgia, baclofen pump. chronic decubitus followed by wound care. neurogenic bladder, chronic perera catheter. IR placed G tube - Past Surgical History Past Surgical History: Yes: Colonoscopy Additional Surgical History: Baclofen pump inserion. IR G tube insertion. right videothorascopic decortication and empyema drainage 2014 - Alcohol/Substance Use Hx Alcohol Use: No History of Substance Use: reports: None - Smoking History Smoking history: Never smoked Have you smoked in the past 12 months: No Aproximately how many cigarettes per day: 0 - Social History Usual Living Arrangement: With Parent (mother) ADL: Support Services Place of : [facility] History of Recent Travel: No Home Medications - Allergies Allergies/Adverse Reactions: Allergies Allergy/AdvReac Type Severity Reaction Status Date / Time chloral hydrate Allergy Intermediate Rash Verified 09/12/18 12:32 [Chloral Hydrate] azathioprine [From Imuran] Allergy Rash Verified 09/12/18 12:32 azathioprine sodium Allergy Rash Verified 09/12/18 12:32 [From Imuran] adhesive tape AdvReac Severe sensitivity Verified 09/12/18 12:32 to glue adhesive AdvReac Unknown Verified 09/12/18 12:32 - Home Medications Home Medications: Ambulatory Orders Melatonin 2 mg GT HS 05/03/18 Multivitamin [Multiple Vitamins] 1 each GT DAILY 05/03/18 Albuterol 2.5/Ipratropium 0.5 [Duoneb -] 1 amp NEB Q6H PRN #45 amp 05/28/18 Sodium Chloride Tablet - 1 gm GT DAILY #30 tablet 07/25/18 Carbamazepine [Tegretol -] 200 mg GT TIDCM tablet 08/22/18 Levothyroxine [Synthroid -] 100 mcg GT DAILY@0700 tablet 08/22/18 Amino Acids/Protein Hydrolys [Prosource No Carb Liquid Pkt] 30 ml PO DAILY@0800 09/12/18 Amlodipine Besylate [Norvasc -] 5 mg GT DAILY 09/12/18 Ascorbic Acid [Vitamin C -] 500 mg GT DAILY 09/12/18 Lactobacillus Acidophilus [Bacid -] 1 tab GT BID 09/12/18 Loratadine [Claritin -] 10 mg GT DAILY 09/12/18 Mirtazapine [Remeron -] 7.5 mg GT HS 09/12/18 Sertraline HCl [Zoloft -] 50 mg GT DAILY 09/12/18 hydrALAZINE HCL [Apresoline -] 50 mg GT TID 09/12/18 Levothyroxine [Synthroid -] 125 mcg GT DAILY@0700 tablet 09/19/18 Polyethylene Glycol 3350 [Miralax (For Bowel Prep) -] 17 gm PO DAILY #1 bottle 09/19/18 Family Disease History - Family Disease History Family Disease History: Diabetes: Sister (gallstones), Other: Father (GB surgery ), Mother, Sister Review of Systems - Review of Systems Constitutional: reports: Malaise Cardiovascular: reports: No Symptoms Gastrointestinal: reports: Constipation Genitourinary: reports: No Symptoms Musculoskeletal: reports: No Symptoms Neurological: reports: Other (quadriplegic) Physical Exam-GI Vital Signs: Vital Signs Temperature 97.4 F L 09/20/18 14:34 Pulse Rate 83 09/20/18 14:34 Respiratory Rate 16 09/20/18 14:34 Blood Pressure 135/73 09/20/18 14:34 O2 Sat by Pulse Oximetry (%) 97 09/20/18 08:00 CBC,CMP WBC 5.2 K/mm3 (4.0-10.0) 09/20/18 07:30 RBC 2.67 M/mm3 (3.60-5.2) L 09/20/18 07:30 Hgb 8.5 GM/dL (10.7-15.3) L 09/20/18 07:30 Hct 25.0 % (32.4-45.2) L 09/20/18 07:30 MCV 93.4 fl (80-96) 09/20/18 07:30 MCH 31.8 pg (25.7-33.7) 09/20/18 07:30 MCHC 34.1 g/dl (32.0-36.0) 09/20/18 07:30 RDW 17.5 % (11.6-15.6) H 09/20/18 07:30 Plt Count 235 K/MM3 (134-434) 09/20/18 07:30 MPV 8.5 fl (7.5-11.1) 09/20/18 07:30 Absolute Neuts (auto) 3.4 K/mm3 (1.5-8.0) 09/20/18 07:30 Total Counted 100 09/13/18 01:20 Neutrophils % 65.7 % (42.8-82.8) 09/20/18 07:30 Neutrophils % (Manual) 58.0 % (42.8-82.8) 09/13/18 01:20 Lymphocytes % 15.7 % (8-40) 09/20/18 07:30 Lymphocytes % (Manual) 36.0 % (8-40) D 09/13/18 01:20 Monocytes % 10.7 % (3.8-10.2) H 09/20/18 07:30 Monocytes % (Manual) 4 % (3.8-10.2) D 09/13/18 01:20 Eosinophils % 7.6 % (0-4.5) H D 09/20/18 07:30 Eosinophils % (Manual) 1.0 % (0-4.5) D 09/13/18 01:20 Basophils % 0.3 % (0-2.0) 09/20/18 07:30 Nucleated RBC % 0 % (0-0) 09/20/18 07:30 Metamyelocytes 1 % (0-2) D 09/13/18 01:20 Platelet Estimate Slt decrease 09/13/18 01:20 Platelet Comment No clumping noted 09/13/18 01:20 Platelet Comment No clotting detected 09/13/18 01:20 Sodium 137 mmol/L (136-145) 09/20/18 07:30 Potassium 5.5 mmol/L (3.5-5.1) H 09/20/18 07:30 Chloride 101 mmol/L (98-107) 09/20/18 07:30 Carbon Dioxide 35 mmol/L (21-32) H 09/20/18 07:30 Anion Gap 1 MMOL/L (8-16) L 09/20/18 07:30 BUN 40.5 mg/dL (7-18) H 09/20/18 07:30 Creatinine 0.5 mg/dL (0.55-1.3) L 09/20/18 07:30 Est GFR (CKD-EPI)AfAm 127.17 09/20/18 07:30 Est GFR (CKD-EPI)NonAf 109.72 09/20/18 07:30 POC Glucometer 137 UNITS (80-120) 09/15/18 18:47 Random Glucose 125 mg/dL (74-106) H 09/20/18 07:30 Serum Osmolality 242 mosm/kg (278-305) L 09/12/18 17:17 Lactic Acid 0.6 mmol/L (0.4-2.0) 09/13/18 01:20 Uric Acid 1.2 mg/dL (2.6-7.2) L 09/12/18 20:30 Calcium 8.9 mg/dL (8.5-10.1) 09/20/18 07:30 Phosphorus 3.2 mg/dL (2.5-4.9) 09/17/18 06:30 Magnesium 2.7 mg/dL (1.8-2.4) H 09/17/18 06:30 Iron 68 ug/dL (27-159) 09/14/18 05:50 TIBC 208 ug/dL (250-450) L 09/14/18 05:50 Iron Saturation 33 % (15-55) 09/14/18 05:50 Unsaturated IBC 140 ug/dL (131-425) 09/14/18 05:50 Ferritin 953.6 ng/ml (8-388) H 09/14/18 05:50 Total Bilirubin 0.2 mg/dL (0.2-1) 09/20/18 07:30 AST 265 U/L (15-37) H 09/20/18 07:30 ALT 248 U/L (13-61) H 09/20/18 07:30 Alkaline Phosphatase 416 U/L (45-117) H 09/20/18 07:30 Creatine Kinase 82 U/L (26-192) 09/12/18 13:40 Troponin I < 0.02 ng/ml (0.00-0.05) 09/12/18 13:40 B-Natriuretic Peptide 2284.3 pg/ml (5-125) H 09/12/18 13:40 Total Protein 7.5 g/dl (6.4-8.2) 09/20/18 07:30 Albumin 2.3 g/dl (3.4-5.0) L 09/20/18 07:30 Serum Folate 19 ng/mL (3.1-17.5) H 09/15/18 09:20 TSH 9.98 uIU/ml (0.358-3.74) H 09/13/18 05:53 Free T4 1.05 ng/dl (0.76-1.46) 09/13/18 05:53 Current Medications Generic Name Dose Route Start Last Admin Trade Name Freq PRN Reason Stop Dose Admin Amino Acids 30 ml 09/15/18 08:00 09/20/18 10:22 Prosource No Carb Liquid Pkt GT 30 ml DAILY@0800 CATHERINE Administration Amlodipine Besylate 2.5 mg 09/15/18 10:00 09/20/18 10:23 Norvasc - GT 2.5 mg DAILY CATHERINE Administration Ascorbic Acid 500 mg 09/15/18 10:00 09/20/18 10:23 Vitamin C - GT 500 mg DAILY CATHERINE Administration Carbamazepine 200 mg 09/16/18 22:00 09/20/18 10:23 Tegretol - GT 200 mg BID CATHERINE Administration Clonazepam 0.5 mg 09/14/18 22:00 09/19/18 22:14 Klonopin - GT 0.5 mg HS CATHERINE Administration Heparin Sodium (Porcine) 5,000 unit 09/14/18 22:00 09/20/18 10:23 Heparin - SQ 5,000 unit BID CATHERINE Administration Hydralazine HCl 50 mg 09/14/18 22:00 09/20/18 15:10 Apresoline - GT 50 mg TID CATHERINE Administration Lactobacillus Acidophilus 1 tab 09/14/18 22:00 09/20/18 10:23 Bacid - GT 1 tab BID CATHERINE Administration Levothyroxine Sodium 75 mcg/ 125 mcg 09/15/18 07:00 09/20/18 06:33 Levothyroxine Sodium 50 mcg GT 125 mcg DAILY@0700 CATHERINE Administration Loratadine 10 mg 09/15/18 10:00 09/20/18 10:23 Claritin - GT 10 mg DAILY CATHERINE Administration Mirtazapine 7.5 mg 09/14/18 22:00 09/19/18 22:13 Remeron - GT 7.5 mg HS CATHERINE Administration Pregabalin 100 mg 09/16/18 22:00 09/20/18 10:23 Lyrica - PO 100 mg BID CATHERINE Administration Sertraline HCl 50 mg 09/15/18 10:00 09/20/18 10:23 Zoloft - GT 50 mg DAILY CATHERINE Administration Sodium Chloride 1 gm 09/14/18 22:00 09/20/18 10:23 Sodium Chloride Tablet - GT 1 gm BID CATHERINE Administration Constitutional: Yes: Calm Eyes: Yes: Conjunctiva Clear HENT: Yes: Atraumatic Neck: Yes: Other (mature tracheostomy) Cardiovascular: Yes: Regular Rate and Rhythm Respiratory: Yes: CTA Bilaterally Gastrointestinal Inspection: Yes: Scars (mature LUQ IG tube, RUQ Baclofen pump) ...Auscultate: Yes: Normoactive Bowel Sounds ...Palpate: Yes: Soft, Other (nontender) ...Rectal Exam: Yes: Deferred Labs: CBC, BMP 09/20/18 07:30 09/20/18 07:30 INR, PTT INR 1.05 (0.83-1.09) 09/13/18 05:53 Laboratory Tests 09/14/18 09/16/18 09/19/18 05:50 07:00 08:58 Total Bilirubin 0.2 0.3 0.2 AST 17 25 167 H ALT 27 36 159 H Alkaline Phosphatase 206 H 226 H 390 H 09/20/18 07:30 Total Bilirubin 0.2 AST 265 H ALT 248 H Alkaline Phosphatase 416 H Problem List - Problems (1) Abnormal LFTs Assessment/Plan: I suspect that Geetha's current and previous LFTs fluctuations reflect passage of stones or sludge into the gallbladder. I explained to her, her mother and her sister that this places her at risk for ascending cholangitis and septic shock, liver failure, biliary pancreatitis and cholecystitis. If confirmed I explained that she should ideally undergo an ERCP with sphincterotomy to extract the stones or stenting of the CBD if the stones are too large and then a subsequent cholecystectomy. I discussed the potential risks of EC including perforation, hemorrhage and multiorgan failure stemming from an ERCP induced pancreatitis. I initially advised an MRCP to start but her Baclofen pump precludes this. A sonogram is pending. The patient and family want to discuss ERCP and surgical interventions at this point. I will start Actigal which should be continued. If fever or leukocytosis ensue, antibiotics should be started after obtaining blood cultures. Code(s): R94.5 - ABNORMAL RESULTS OF LIVER FUNCTION STUDIES (2) Cholelithiasis Code(s): K80.20 - CALCULUS OF GALLBLADDER W/O CHOLECYSTITIS W/O OBSTRUCTION (3) Hyponatremia Code(s): E87.1 - HYPO-OSMOLALITY AND HYPONATREMIA (4) Acute on chronic respiratory failure with hypoxia and hypercapnia Code(s): J96.21 - ACUTE AND CHRONIC RESPIRATORY FAILURE WITH HYPOXIA; J96.22 - ACUTE AND CHRONIC RESPIRATORY FAILURE WITH HYPERCAPNIA (5) Anemia Code(s): D64.9 - ANEMIA, UNSPECIFIED Qualifiers: Other causes of anemia: other cause, not classified (6) Constipation Code(s): K59.00 - CONSTIPATION, UNSPECIFIED (7) Decubital ulcer Code(s): L89.90 - PRESSURE ULCER OF UNSPECIFIED SITE, UNSPECIFIED STAGE Qualifiers: Pressure injury location: unspecified location Pressure injury stage: unspecified pressure injury stage Qualified Code(s): L89.90 - Pressure ulcer of unspecified site, unspecified stage (8) Functional 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 (9) Gastrostomy tube obstruction Code(s): K94.29 - OTHER COMPLICATIONS OF GASTROSTOMY (10) Multiple sclerosis Code(s): G35 - MULTIPLE SCLEROSIS (11) Choledocholithiasis Code(s): K80.50 - CALCULUS OF BILE DUCT W/O CHOLANGITIS OR CHOLECYST W/O OBST (12) Depression Code(s): F32.9 - MAJOR DEPRESSIVE DISORDER, SINGLE EPISODE, UNSPECIFIED (13) HTN (hypertension) Code(s): I10 - ESSENTIAL (PRIMARY) HYPERTENSION (14) Hypothyroid Code(s): E03.9 - HYPOTHYROIDISM, UNSPECIFIED Assessment/Plan Impression: - I suspect that Geetha's current and previous LFTs fluctuations reflect passage of stones or sludge into the gallbladder. I explained to her, her mother and her sister that this places her at risk for ascending cholangitis and septic shock, liver failure, biliary pancreatitis and cholecystitis. If confirmed I explained that she should ideally undergo an ERCP with sphincterotomy to extract the stones or stenting of the CBD if the stones are too large and then a subsequent cholecystectomy. I discussed the potential risks of EC including perforation, hemorrhage and multiorgan failure stemming from an ERCP induced pancreatitis. I initially advised an MRCP to start but her Baclofen pump precludes this. She could alternatively have a DILI with Tegretol and Remeron being the most likely potential agents. - Anemia is likely due to decubiti losses given that stool is occult negative - Constipation due to quadriplegia Plan: -- A sonogram is pending. -- Serial LFTs -- The patient and family have been informed about ERCP and surgical interventions at this point and are in a position to make a decision -- I will start Actigal which should be continued. -- If fever or leukocytosis ensue, antibiotics should be started after obtaining blood cultures. -- Miralax
--- NOTE | 2018-09-20 16:30 | PN ---
Progress Note (short form) - Note Progress Note: Renal follow up for hyponatremia Pt seen and examined at the bedside awake and alert no acute complaints d/c held because of elevated LFT's Vital Signs Temperature 97.4 F L 09/20/18 14:34 Pulse Rate 83 09/20/18 14:34 Respiratory Rate 16 09/20/18 14:34 Blood Pressure 135/73 09/20/18 14:34 O2 Sat by Pulse Oximetry (%) 98 09/20/18 10:15 Intake & Output 09/17/18 09/18/18 09/19/18 09/20/18 23:59 23:59 23:59 23:59 Intake Total 420 1910 1648 1250 Output Total 2900 3100 2300 1800 Balance -2480 -1190 -652 -550 NAD on trach collar RRR, no M/R CTA, no rales or wheeze soft NT/ND no LE or sacral edema CBC, BMP 09/20/18 07:30 09/20/18 07:30 Current Medications Amino Acids (Prosource No Carb Liquid Pkt) 30 ml GT DAILY@0800 [facility] Last Admin: 09/20/18 10:22 Dose: 30 ml Amlodipine Besylate (Norvasc -) 2.5 mg GT DAILY [facility] Last Admin: 09/20/18 10:23 Dose: 2.5 mg Ascorbic Acid (Vitamin C -) 500 mg GT DAILY [facility] Last Admin: 09/20/18 10:23 Dose: 500 mg Carbamazepine (Tegretol -) 200 mg GT BID [facility] Last Admin: 09/20/18 10:23 Dose: 200 mg Clonazepam (Klonopin -) 0.5 mg GT HS [facility] Last Admin: 09/19/18 22:14 Dose: 0.5 mg Heparin Sodium (Porcine) (Heparin -) 5,000 unit SQ BID [facility] Last Admin: 09/20/18 10:23 Dose: 5,000 unit Hydralazine HCl (Apresoline -) 50 mg GT TID [facility] Last Admin: 09/20/18 15:10 Dose: 50 mg Lactobacillus Acidophilus (Bacid -) 1 tab GT BID [facility] Last Admin: 09/20/18 10:23 Dose: 1 tab Levothyroxine Sodium 75 mcg/ (Levothyroxine Sodium 50 mcg) 125 mcg GT DAILY@ 0700 [facility] Last Admin: 09/20/18 06:33 Dose: 125 mcg Loratadine (Claritin -) 10 mg GT DAILY [facility] Last Admin: 09/20/18 10:23 Dose: 10 mg Mirtazapine (Remeron -) 7.5 mg GT HS [facility] Last Admin: 09/19/18 22:13 Dose: 7.5 mg Pregabalin (Lyrica -) 100 mg PO BID [facility] Last Admin: 09/20/18 10:23 Dose: 100 mg Sertraline HCl (Zoloft -) 50 mg GT DAILY [facility] Last Admin: 09/20/18 10:23 Dose: 50 mg Sodium Chloride (Sodium Chloride Tablet -) 1 gm GT BID [facility] Last Admin: 09/20/18 10:23 Dose: 1 gm 53 year old woman with history of multiple sclerosis, respiratory failure on trach, hx of SIADH, neurogenic bladder who presented from home with increased respiratory secretions and found to have hyponatremia with Na of 116. #Hyponatremia secondary to SIADH vs. intravascular volume depletion-less likely #Increased respiratory secretions #Anemia #Multiple sclerosis #Chronic respiratory failure with trach Serum Na is improved continue fluid restriction, tube feeds with free water (as ordered) continue salt tabs BID K remains elevated, no emrgent intervention needed at this time limit oral potassium intake, if remains elevated tomorrow can decrease the rate of tube feeds (getting ~2.4g of K in feeds) GI following regarding elevated LFT's Tyshawn Liriano DO
--- NOTE | 2018-09-20 16:54 | PN ---
Progress Note (short form) - Note Progress Note: GI NOte: I spoke with Dr Emili Heck Geetha's rehab physician who coordinates her Baclofen pump. She informed me that the Baclofen pump is a titanium product that is MRI safe. Geetha may however need for a [employer] tech to reset the device after the MRI. Dr Heck can arrange this ( [phone]). Will order MRCP. Problem List - Problems (1) Abnormal LFTs Code(s): R94.5 - ABNORMAL RESULTS OF LIVER FUNCTION STUDIES (2) Cholelithiasis Code(s): K80.20 - CALCULUS OF GALLBLADDER W/O CHOLECYSTITIS W/O OBSTRUCTION (3) Hyponatremia Code(s): E87.1 - HYPO-OSMOLALITY AND HYPONATREMIA (4) Acute on chronic respiratory failure with hypoxia and hypercapnia Code(s): J96.21 - ACUTE AND CHRONIC RESPIRATORY FAILURE WITH HYPOXIA; J96.22 - ACUTE AND CHRONIC RESPIRATORY FAILURE WITH HYPERCAPNIA (5) Anemia Code(s): D64.9 - ANEMIA, UNSPECIFIED Qualifiers: Other causes of anemia: other cause, not classified (6) Constipation Code(s): K59.00 - CONSTIPATION, UNSPECIFIED (7) Decubital ulcer Code(s): L89.90 - PRESSURE ULCER OF UNSPECIFIED SITE, UNSPECIFIED STAGE Qualifiers: Pressure injury location: unspecified location Pressure injury stage: unspecified pressure injury stage Qualified Code(s): L89.90 - Pressure ulcer of unspecified site, unspecified stage (8) Functional 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 (9) Gastrostomy tube obstruction Code(s): K94.29 - OTHER COMPLICATIONS OF GASTROSTOMY (10) Multiple sclerosis Code(s): G35 - MULTIPLE SCLEROSIS (11) Choledocholithiasis Code(s): K80.50 - CALCULUS OF BILE DUCT W/O CHOLANGITIS OR CHOLECYST W/O OBST (12) Depression Code(s): F32.9 - MAJOR DEPRESSIVE DISORDER, SINGLE EPISODE, UNSPECIFIED (13) HTN (hypertension) Code(s): I10 - ESSENTIAL (PRIMARY) HYPERTENSION (14) Hypothyroid Code(s): E03.9 - HYPOTHYROIDISM, UNSPECIFIED
[2018-09-20] MEDS: MIRTAZAPINE 15 MG TABLET (FP) GT SCH (22:54)
[2018-09-20] MEDS: URSODIOL 300 MG CAPSULE PO SCH (22:55)
[2018-09-20] MEDS: clonazePAM 0.5 MG TABLET GT SCH (22:55)
[2018-09-20] MEDS: POLYETHYLENE GLYCOL 3350 119 GM BTL GT SCH (22:55)
[2018-09-21] MEDS ORDERED: LEVOTHYROXINE NA 50 MCG TABLET (FP) ONE (06:17)
[2018-09-21] MEDS ORDERED: LEVOTHYROXINE NA 75 MCG TABLET (FP) ONE (06:17)
[2018-09-21] MEDS: LEVOTHYROXINE GT SCH (07:12)
[2018-09-21] MEDS: hydrALAZINE HCL 50 MG TABLET (FP) GT SCH ×4 (07:12→23:29)
--- NOTE | 2018-09-21 08:27 | PN ---
Progress Note, Physician - Current Medication List Current Medications: Active Medications Amino Acids (Prosource No Carb Liquid Pkt) 30 ml GT DAILY@0800 [facility] Last Admin: 09/20/18 10:22 Dose: 30 ml Amlodipine Besylate (Norvasc -) 2.5 mg GT DAILY [facility] Last Admin: 09/20/18 10:23 Dose: 2.5 mg Ascorbic Acid (Vitamin C -) 500 mg GT DAILY [facility] Last Admin: 09/20/18 10:23 Dose: 500 mg Carbamazepine (Tegretol -) 200 mg GT BID [facility] Last Admin: 09/20/18 23:40 Dose: 200 mg Clonazepam (Klonopin -) 0.5 mg GT HS [facility] Last Admin: 09/20/18 22:55 Dose: 0.5 mg Heparin Sodium (Porcine) (Heparin -) 5,000 unit SQ BID [facility] Last Admin: 09/20/18 22:55 Dose: 5,000 unit Hydralazine HCl (Apresoline -) 50 mg GT TID [facility] Last Admin: 09/21/18 07:12 Dose: 50 mg Lactobacillus Acidophilus (Bacid -) 1 tab GT BID [facility] Last Admin: 09/20/18 22:54 Dose: 1 tab Levothyroxine Sodium 75 mcg/ (Levothyroxine Sodium 50 mcg) 125 mcg GT DAILY@ 0700 [facility] Last Admin: 09/21/18 07:12 Dose: 125 mcg Loratadine (Claritin -) 10 mg GT DAILY [facility] Last Admin: 09/20/18 10:23 Dose: 10 mg Mirtazapine (Remeron -) 7.5 mg GT [facility] Last Admin: 09/20/18 22:54 Dose: 7.5 mg Polyethylene Glycol (Miralax (For Daily Use) -) 17 gm GT BID [facility] Last Admin: 09/20/18 22:55 Dose: 17 gm Pregabalin (Lyrica -) 100 mg PO BID [facility] Last Admin: 09/20/18 22:55 Dose: 100 mg Sertraline HCl (Zoloft -) 50 mg GT DAILY [facility] Last Admin: 09/20/18 10:23 Dose: 50 mg Sodium Chloride (Sodium Chloride Tablet -) 1 gm GT BID [facility] Last Admin: 09/20/18 23:40 Dose: 1 gm Ursodiol (Actigal -) 300 mg PO BID [facility] Last Admin: 09/20/18 22:55 Dose: 300 mg - Objective Vital Signs: Vital Signs Temperature 97.6 F 09/21/18 06:00 Pulse Rate 72 09/21/18 06:00 Respiratory Rate 14 09/21/18 06:15 Blood Pressure 148/78 09/21/18 06:00 O2 Sat by Pulse Oximetry (%) 99 09/21/18 02:19 Cardiovascular: Yes: Regular Rate and Rhythm Respiratory: Yes: Mechanically Ventilated Gastrointestinal: Yes: Normal Bowel Sounds, Soft Labs: CBC, BMP 09/20/18 07:30 09/20/18 07:30 INR, PTT INR 1.05 (0.83-1.09) 09/13/18 05:53 Assessment/Plan - Problems (1) Acute on chronic respiratory failure with hypoxia and hypercapnia Assessment/Plan: -Pulm on board -mechanically ventilated with trial periods of breathing with O2 via trach collar -keep SpO2 >90% -bronchodilators Code(s): J96.21 - ACUTE AND CHRONIC RESPIRATORY FAILURE WITH HYPOXIA; J96.22 - ACUTE AND CHRONIC RESPIRATORY FAILURE WITH HYPERCAPNIA (2) Altered mental status Assessment/Plan: -resolved Code(s): R41.82 - ALTERED MENTAL STATUS, UNSPECIFIED (3) Anemia Assessment/Plan: -Hg 8.5 pot prbc -hematology consult -monitor Hg Code(s): D64.9 - ANEMIA, UNSPECIFIED Qualifiers: Other causes of anemia: other cause, not classified (4) Functional quadriplegia secondary to MS Assessment/Plan: -fall precaution -reposition q2h Code(s): G35 - MULTIPLE SCLEROSIS; R53.2 - FUNCTIONAL QUADRIPLEGIA (5) HTN (hypertension) Assessment/Plan: -Norvasc -hold if SBP <100 and/or DBP <60 Code(s): I10 - ESSENTIAL (PRIMARY) HYPERTENSION (6) Hx of multiple sclerosis Assessment/Plan: -PT -fall precaution Code(s): Z86.69 - PERSONAL HISTORY OF DIS OF THE NERVOUS SYS AND SENSE ORGANS (7) Hyponatremia Assessment/Plan: -Na 135 -renal on board -Sodium Chloride tablet -monitor Na daily Code(s): E87.1 - HYPO-OSMOLALITY AND HYPONATREMIA (8) Hypothyroid Assessment/Plan: -Levothyroxine Code(s): E03.9 - HYPOTHYROIDISM, UNSPECIFIED (9) Multiple drug resistant organism (MDRO) culture positive Assessment/Plan: -contact precautions -BC neg -positive sputum culture Code(s): Z16.24 - RESISTANCE TO MULTIPLE ANTIBIOTICS (10) Hypothermia Assessment/Plan: -monitor temp -kinsey hugger as needed for temp <96F Code(s): T68.XXXA - HYPOTHERMIA, INITIAL ENCOUNTER (11) Abnormal LFt Assessment/Plan: Repeat--Gi consult noted and appreciated US noted--for mrcp
[2018-09-21 09:19] LABS: ALBUMIN 2.4 g/dl (3.4-5.0); BILIRUBIN,DIRECT 0.1 mg/dL (0.0-0.2); BILIRUBIN,TOTAL 0.1 mg/dL (0.2-1); TOT PROT 8.1 g/dl (6.4-8.2)
[2018-09-21 09:24] LABS: ALBUMIN 2.4 g/dl (3.4-5.0); BILIRUBIN,TOTAL 0.2 mg/dL (0.2-1); BLOOD UREA NITROGEN 40.3 mg/dL (7-18); CALCIUM 9.2 mg/dL (8.5-10.1); CREATININE 0.5 mg/dL (0.55-1.3); POTASSIUM 5.4 mmol/L (3.5-5.1); TOT PROT 8.2 g/dl (6.4-8.2)
[2018-09-21] MEDS: LACTOBACILLUS ACIDOPHILUS 1 TABLET GT SCH ×2 (12:54→23:16)
[2018-09-21] MEDS: HEPARIN NA (PORCINE) 5,000 UNITS/ML 1ML VIAL SQ SCH (12:54)
[2018-09-21] MEDS: ASCORBIC ACID 500 MG TABLET (FP) GT SCH (12:54)
[2018-09-21] MEDS: LORATADINE 10 MG TABLET GT SCH (12:54)
[2018-09-21] MEDS: SERTRALINE HCL 50 MG TABLET (FP) GT SCH (12:54)
[2018-09-21] MEDS: amLODIPine BESYLATE 2.5 MG TABLET (FP) GT SCH (12:54)
[2018-09-21] MEDS: PREGABALIN 50 MG CAPSULE PO SCH ×2 (12:54→23:16)
[2018-09-21] MEDS: URSODIOL 300 MG CAPSULE PO SCH ×2 (12:54→23:16)
[2018-09-21] MEDS: POLYETHYLENE GLYCOL 3350 119 GM BTL GT SCH ×2 (12:55→23:17)
[2018-09-21] MEDS: AMINO ACIDS/PROTEIN HYDROLYS 30 ML LIQUID.PKT GT SCH (12:56)
[2018-09-21] MEDS: SODIUM CHLORIDE 1 GM TABLET GT SCH ×2 (12:56→23:17)
[2018-09-21] MEDS: carBAMazepine 200 MG TABLET GT SCH ×2 (12:57→23:17)
--- NOTE | 2018-09-21 14:24 | PN ---
Progress Note, Physician History of Present Illness: pulmonary awake,alert,comfortable on trach collar,-resp distress - Current Medication List Current Medications: Active Medications Amino Acids (Prosource No Carb Liquid Pkt) 30 ml GT DAILY@0800 [facility] Last Admin: 09/21/18 12:56 Dose: 30 ml Amlodipine Besylate (Norvasc -) 2.5 mg GT DAILY [facility] Last Admin: 09/21/18 12:54 Dose: 2.5 mg Ascorbic Acid (Vitamin C -) 500 mg GT DAILY [facility] Last Admin: 09/21/18 12:54 Dose: 500 mg Carbamazepine (Tegretol -) 200 mg GT BID [facility] Last Admin: 09/21/18 12:57 Dose: 200 mg Clonazepam (Klonopin -) 0.5 mg GT HS [facility] Last Admin: 09/20/18 22:55 Dose: 0.5 mg Heparin Sodium (Porcine) (Heparin -) 5,000 unit SQ BID [facility] Last Admin: 09/21/18 12:54 Dose: 5,000 unit Hydralazine HCl (Apresoline -) 50 mg GT TID [facility] Last Admin: 09/21/18 07:12 Dose: 50 mg Lactobacillus Acidophilus (Bacid -) 1 tab GT BID [facility] Last Admin: 09/21/18 12:54 Dose: 1 tab Levothyroxine Sodium 75 mcg/ (Levothyroxine Sodium 50 mcg) 125 mcg GT DAILY@ 0700 [facility] Last Admin: 09/21/18 07:12 Dose: 125 mcg Loratadine (Claritin -) 10 mg GT DAILY [facility] Last Admin: 09/21/18 12:54 Dose: 10 mg Mirtazapine (Remeron -) 7.5 mg GT HS [facility] Last Admin: 09/20/18 22:54 Dose: 7.5 mg Polyethylene Glycol (Miralax (For Daily Use) -) 17 gm GT BID [facility] Last Admin: 09/21/18 12:55 Dose: 17 gm Pregabalin (Lyrica -) 100 mg PO BID [facility] Last Admin: 09/21/18 12:54 Dose: 100 mg Sertraline HCl (Zoloft -) 50 mg GT DAILY [facility] Last Admin: 09/21/18 12:54 Dose: 50 mg Sodium Chloride (Sodium Chloride Tablet -) 1 gm GT BID [facility] Last Admin: 09/21/18 12:56 Dose: 1 gm Ursodiol (Actigal -) 300 mg PO BID [facility] Last Admin: 09/21/18 12:54 Dose: 300 mg - Objective Vital Signs: Vital Signs Temperature 97.3 F L 09/21/18 09:00 Pulse Rate 82 09/21/18 09:00 Respiratory Rate 16 09/21/18 09:00 Blood Pressure 143/75 09/21/18 09:00 O2 Sat by Pulse Oximetry (%) 99 09/21/18 02:19 Constitutional: Yes: Calm, Thin Eyes: Yes: WNL HENT: Yes: WNL Neck: Yes: WNL (trach) Cardiovascular: Yes: Regular Rate and Rhythm, S1, S2 Respiratory: Yes: Rhonchi (few scattered rhonchi) Gastrointestinal: Yes: Normal Bowel Sounds, Soft Extremities: Yes: WNL Edema: No Labs: CBC, BMP 09/20/18 07:30 09/21/18 08:20 INR, PTT INR 1.05 (0.83-1.09) 09/13/18 05:53 Problem List - Problems (1) Cholelithiasis Code(s): K80.20 - CALCULUS OF GALLBLADDER W/O CHOLECYSTITIS W/O OBSTRUCTION (2) Hyponatremia Code(s): E87.1 - HYPO-OSMOLALITY AND HYPONATREMIA (3) Abnormal LFTs Code(s): R94.5 - ABNORMAL RESULTS OF LIVER FUNCTION STUDIES (4) Constipation Code(s): K59.00 - CONSTIPATION, UNSPECIFIED (5) Decubital ulcer Code(s): L89.90 - PRESSURE ULCER OF UNSPECIFIED SITE, UNSPECIFIED STAGE Qualifiers: Pressure injury location: unspecified location Pressure injury stage: unspecified pressure injury stage Qualified Code(s): L89.90 - Pressure ulcer of unspecified site, unspecified stage (6) Functional 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 (7) HTN (hypertension) Code(s): I10 - ESSENTIAL (PRIMARY) HYPERTENSION (8) Hx of multiple sclerosis Code(s): Z86.69 - PERSONAL HISTORY OF DIS OF THE NERVOUS SYS AND SENSE ORGANS (9) Hyperkalemia Code(s): E87.5 - HYPERKALEMIA (10) Multiple sclerosis Code(s): G35 - MULTIPLE SCLEROSIS Assessment/Plan A/P Hyponatremia improved Elevated LFTs Multiple Sclerosis Chronic Respiratory Failure s/p Tracheostomy Functional Quadriplegia Atelectasis HTN Hypothyroidism hyperkalemia Gallstones - - fluid restriction - continue salt tabs - chest PT, pulmonary toilet - inhaled bronchodilators - trach collar during day, vent support at night - enteral feeds - DVT/GI prophylaxis - check MRI - monitor lytes,k,LFTs DR ELDER
--- NOTE | 2018-09-21 15:25 | PN ---
Progress Note (short form) - Note Progress Note: Patient Known to me for Multiple Grade IV decubitii Patient seen on floor: Generalized condition very weak, able to speak short sentences. Microbiology 09/13/18 06:25 Sputum - Endotrachea Suction/Ventilator Gram Stain - Final 09/13/18 06:25 Sputum - Endotrachea Suction/Ventilator Sputum Culture - Final Pseudomonas Aeruginosa Proteus Mirabilis Selected Entries 09/21/18 09:00 Temperature 97.3 F L Blood Pressure 143/75 Blood Pressure 101 Mean Blood Pressure Sitting Position Laboratory Tests 09/20/18 09/21/18 07:30 08:20 WBC 5.2 RBC 2.67 L Hgb 8.5 L Hct 25.0 L RDW 17.5 H Monocytes % 10.7 H Eosinophils % 7.6 H D Total Protein 8.1 Albumin 2.4 L Decubitti evaluated ( Loose greenish faecal matter contamination ) Plan : 1 Continue wound care with Alginate every other day if no faecal contamination after cleaning with NSS 2. Continue Pulmonary management. 3. Low Pressure Mattress for Grade IV FU as needed
--- NOTE | 2018-09-21 17:10 | PN ---
Progress Note (short form) - Note Progress Note: Renal follow up for hyponatremia Pt seen and examined at the bedside awake and alert no acute complaints s/p MRI this am Vital Signs Temperature 97.4 F L 09/21/18 14:00 Pulse Rate 70 09/21/18 14:00 Respiratory Rate 16 09/21/18 14:00 Blood Pressure 143/82 09/21/18 14:00 O2 Sat by Pulse Oximetry (%) 99 09/21/18 02:19 Intake & Output 09/18/18 09/19/18 09/20/18 09/21/18 23:59 23:59 23:59 23:59 Intake Total 1910 1648 2141 Output Total 3100 2300 2200 500 Balance -1190 -652 -59 -500 NAD on trach collar RRR, no M/R CTA, no rales or wheeze soft NT/ND no LE or sacral edema CBC, BMP 09/20/18 07:30 09/21/18 08:20 Current Medications Amino Acids (Prosource No Carb Liquid Pkt) 30 ml GT DAILY@0800 [facility] Last Admin: 09/21/18 12:56 Dose: 30 ml Amlodipine Besylate (Norvasc -) 2.5 mg GT DAILY [facility] Last Admin: 09/21/18 12:54 Dose: 2.5 mg Ascorbic Acid (Vitamin C -) 500 mg GT DAILY [facility] Last Admin: 09/21/18 12:54 Dose: 500 mg Carbamazepine (Tegretol -) 200 mg GT BID [facility] Last Admin: 09/21/18 12:57 Dose: 200 mg Clonazepam (Klonopin -) 0.5 mg GT HS [facility] Last Admin: 09/20/18 22:55 Dose: 0.5 mg Heparin Sodium (Porcine) (Heparin -) 5,000 unit SQ BID [facility] Last Admin: 09/21/18 12:54 Dose: 5,000 unit Hydralazine HCl (Apresoline -) 50 mg GT TID [facility] Last Admin: 09/21/18 07:12 Dose: 50 mg Lactobacillus Acidophilus (Bacid -) 1 tab GT BID [facility] Last Admin: 09/21/18 12:54 Dose: 1 tab Levothyroxine Sodium 75 mcg/ (Levothyroxine Sodium 50 mcg) 125 mcg GT DAILY@ 0700 [facility] Last Admin: 09/21/18 07:12 Dose: 125 mcg Loratadine (Claritin -) 10 mg GT DAILY [facility] Last Admin: 09/21/18 12:54 Dose: 10 mg Mirtazapine (Remeron -) 7.5 mg GT HS [facility] Last Admin: 09/20/18 22:54 Dose: 7.5 mg Polyethylene Glycol (Miralax (For Daily Use) -) 17 gm GT BID [facility] Last Admin: 09/21/18 12:55 Dose: 17 gm Pregabalin (Lyrica -) 100 mg PO BID [facility] Last Admin: 09/21/18 12:54 Dose: 100 mg Sertraline HCl (Zoloft -) 50 mg GT DAILY [facility] Last Admin: 09/21/18 12:54 Dose: 50 mg Sodium Chloride (Sodium Chloride Tablet -) 1 gm GT BID [facility] Last Admin: 09/21/18 12:56 Dose: 1 gm Ursodiol (Actigal -) 300 mg PO BID [facility] Last Admin: 09/21/18 12:54 Dose: 300 mg 53 year old woman with history of multiple sclerosis, respiratory failure on trach, hx of SIADH, neurogenic bladder who presented from home with increased respiratory secretions and found to have hyponatremia with Na of 116. #Hyponatremia secondary to SIADH vs. intravascular volume depletion-less likely #Increased respiratory secretions #Anemia #Multiple sclerosis #Chronic respiratory failure with trach Serum Na is improved and stable continue fluid restriction, tube feeds with free water (as ordered) will decrease tube feed rate to reduce total K delivered. GI following regarding elevated LFT's s/p MRCP this am, results pending GI following Tyshawn Liriano DO
--- NOTE | 2018-09-21 19:02 | PN.GI ---
GI Progress Note Subjective: Gi NOte: The LFTs are normalizing and fortunately the MRCP reveals no residual CBD stone. Family reluctant to consider GB surgery - Objective Vital Signs: Vital Signs Temperature 97.4 F L 09/21/18 18:00 Pulse Rate 57 L 09/21/18 18:00 Respiratory Rate 18 09/21/18 18:00 Blood Pressure 140/68 09/21/18 18:00 O2 Sat by Pulse Oximetry (%) 99 09/21/18 02:19 Laboratory Tests 02/26/18 09/15/18 09/19/18 11:00 09:20 08:58 Total Bilirubin Direct Bilirubin AST 167 H ALT 159 H Alkaline Phosphatase 390 H C-Reactive Protein OSEI Screen Negative Hepatitis A IgM Ab Negative Hep Bs Antigen Negative Hep B Core IgM Ab Negative Hepatitis C Antibody 0.3 09/20/18 09/21/18 09/21/18 07:30 08:20 08:20 Total Bilirubin 0.2 0.1 L Direct Bilirubin 0.1 AST 265 H 141 H ALT 248 H 192 H Alkaline Phosphatase 416 H 403 H C-Reactive Protein 8.1 H OSEI Screen Hepatitis A IgM Ab Hep Bs Antigen Hep B Core IgM Ab Hepatitis C Antibody Constitutional: Calm ...Auscultate: Yes: Normoactive Bowel Sounds ...Palpate: Yes: Soft, Other (nontender) Labs: CBC, BMP 09/20/18 07:30 09/21/18 08:20 INR, PTT INR 1.05 (0.83-1.09) 09/13/18 05:53 Assessment/Plan Impression: - Resolved CBD stone passage - Anemia is likely due to decubiti losses given that stool is occult negative - Constipation due to quadriplegia Plan: -- Repeat LFTs -- Patient and family have been informed about GB surgery to prevent repeated CBD stone passage and cholecystitis -- Actigal should be continued indefinitely or until GB is removed Problem List - Problems (1) Abnormal LFTs Code(s): R94.5 - ABNORMAL RESULTS OF LIVER FUNCTION STUDIES (2) Cholelithiasis Code(s): K80.20 - CALCULUS OF GALLBLADDER W/O CHOLECYSTITIS W/O OBSTRUCTION (3) Hyponatremia Code(s): E87.1 - HYPO-OSMOLALITY AND HYPONATREMIA (4) Acute on chronic respiratory failure with hypoxia and hypercapnia Code(s): J96.21 - ACUTE AND CHRONIC RESPIRATORY FAILURE WITH HYPOXIA; J96.22 - ACUTE AND CHRONIC RESPIRATORY FAILURE WITH HYPERCAPNIA (5) Anemia Code(s): D64.9 - ANEMIA, UNSPECIFIED Qualifiers: Other causes of anemia: other cause, not classified (6) Constipation Code(s): K59.00 - CONSTIPATION, UNSPECIFIED (7) Decubital ulcer Code(s): L89.90 - PRESSURE ULCER OF UNSPECIFIED SITE, UNSPECIFIED STAGE Qualifiers: Pressure injury location: unspecified location Pressure injury stage: unspecified pressure injury stage Qualified Code(s): L89.90 - Pressure ulcer of unspecified site, unspecified stage (8) Functional 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 (9) Gastrostomy tube obstruction Code(s): K94.29 - OTHER COMPLICATIONS OF GASTROSTOMY (10) Multiple sclerosis Code(s): G35 - MULTIPLE SCLEROSIS (11) Choledocholithiasis Code(s): K80.50 - CALCULUS OF BILE DUCT W/O CHOLANGITIS OR CHOLECYST W/O OBST (12) Depression Code(s): F32.9 - MAJOR DEPRESSIVE DISORDER, SINGLE EPISODE, UNSPECIFIED (13) HTN (hypertension) Code(s): I10 - ESSENTIAL (PRIMARY) HYPERTENSION (14) Hypothyroid Code(s): E03.9 - HYPOTHYROIDISM, UNSPECIFIED
[2018-09-21] MEDS: MIRTAZAPINE 15 MG TABLET (FP) GT SCH (23:17)
[2018-09-22] MEDS ORDERED: LIDOCAINE 5% TOPICAL PATCH TP ONE (04:09)
[2018-09-22] MEDS ORDERED: LEVOTHYROXINE NA 50 MCG TABLET (FP) ONE (06:29)
[2018-09-22] MEDS ORDERED: LEVOTHYROXINE NA 75 MCG TABLET (FP) ONE (06:29)
[2018-09-22] MEDS: LEVOTHYROXINE GT SCH (06:30)
[2018-09-22] MEDS: hydrALAZINE HCL 50 MG TABLET (FP) GT SCH ×3 (06:58→22:37)
--- NOTE | 2018-09-22 08:07 | PN ---
Progress Note, Physician - Current Medication List Current Medications: Active Medications Amino Acids (Prosource No Carb Liquid Pkt) 30 ml GT DAILY@0800 [facility] Last Admin: 09/21/18 12:56 Dose: 30 ml Amlodipine Besylate (Norvasc -) 2.5 mg GT DAILY [facility] Last Admin: 09/21/18 12:54 Dose: 2.5 mg Ascorbic Acid (Vitamin C -) 500 mg GT DAILY [facility] Last Admin: 09/21/18 12:54 Dose: 500 mg Carbamazepine (Tegretol -) 200 mg GT BID [facility] Last Admin: 09/21/18 23:17 Dose: 200 mg Hydralazine HCl (Apresoline -) 50 mg GT TID [facility] Last Admin: 09/22/18 06:58 Dose: Not Given Lactobacillus Acidophilus (Bacid -) 1 tab GT BID [facility] Last Admin: 09/21/18 23:16 Dose: 1 tab Levothyroxine Sodium 75 mcg/ (Levothyroxine Sodium 50 mcg) 125 mcg GT DAILY@ 0700 [facility] Last Admin: 09/22/18 06:30 Dose: 125 mcg Loratadine (Claritin -) 10 mg GT DAILY [facility] Last Admin: 09/21/18 12:54 Dose: 10 mg Mirtazapine (Remeron -) 7.5 mg GT HS [facility] Last Admin: 09/21/18 23:17 Dose: 7.5 mg Miscellaneous (Lidoderm Patch Removal) 1 each MC DAILY@2200 [facility] Polyethylene Glycol (Miralax (For Daily Use) -) 17 gm GT BID [facility] Last Admin: 09/21/18 23:17 Dose: 17 gm Pregabalin (Lyrica -) 100 mg PO BID [facility] Last Admin: 09/21/18 23:16 Dose: 100 mg Sertraline HCl (Zoloft -) 50 mg GT DAILY [facility] Last Admin: 09/21/18 12:54 Dose: 50 mg Sodium Chloride (Sodium Chloride Tablet -) 1 gm GT BID [facility] Last Admin: 09/21/18 23:17 Dose: 1 gm Ursodiol (Actigal -) 300 mg PO BID [facility] Last Admin: 09/21/18 23:16 Dose: 300 mg - Objective Vital Signs: Vital Signs Temperature 97.9 F 09/22/18 06:00 Pulse Rate 60 09/22/18 06:00 Respiratory Rate 12 09/22/18 06:26 Blood Pressure 111/72 09/22/18 06:00 O2 Sat by Pulse Oximetry (%) 98 09/22/18 00:20 Cardiovascular: Yes: Regular Rate and Rhythm Respiratory: Yes: CTA Bilaterally, Mechanically Ventilated Gastrointestinal: Yes: Normal Bowel Sounds, Soft Labs: CBC, BMP 09/20/18 07:30 09/21/18 08:20 INR, PTT INR 1.05 (0.83-1.09) 09/13/18 05:53 Assessment/Plan - Problems (1) Acute on chronic respiratory failure with hypoxia and hypercapnia Assessment/Plan: -Pulm on board -mechanically ventilated with trial periods of breathing with O2 via trach collar -keep SpO2 >90% -bronchodilators Code(s): J96.21 - ACUTE AND CHRONIC RESPIRATORY FAILURE WITH HYPOXIA; J96.22 - ACUTE AND CHRONIC RESPIRATORY FAILURE WITH HYPERCAPNIA (2) Altered mental status Assessment/Plan: -resolved Code(s): R41.82 - ALTERED MENTAL STATUS, UNSPECIFIED (3) Anemia Assessment/Plan: -Hg 8.5 pot prbc -hematology consult -monitor Hg Code(s): D64.9 - ANEMIA, UNSPECIFIED Qualifiers: Other causes of anemia: other cause, not classified (4) Functional quadriplegia secondary to MS Assessment/Plan: -fall precaution -reposition q2h Code(s): G35 - MULTIPLE SCLEROSIS; R53.2 - FUNCTIONAL QUADRIPLEGIA (5) HTN (hypertension) Assessment/Plan: -Norvasc -hold if SBP <100 and/or DBP <60 Code(s): I10 - ESSENTIAL (PRIMARY) HYPERTENSION (6) Hx of multiple sclerosis Assessment/Plan: -PT -fall precaution Code(s): Z86.69 - PERSONAL HISTORY OF DIS OF THE NERVOUS SYS AND SENSE ORGANS (7) Hyponatremia Assessment/Plan: -Na 135 -renal on board -Sodium Chloride tablet -monitor Na daily Code(s): E87.1 - HYPO-OSMOLALITY AND HYPONATREMIA (8) Hypothyroid Assessment/Plan: -Levothyroxine Code(s): E03.9 - HYPOTHYROIDISM, UNSPECIFIED (9) Multiple drug resistant organism (MDRO) culture positive Assessment/Plan: -contact precautions -BC neg -positive sputum culture Code(s): Z16.24 - RESISTANCE TO MULTIPLE ANTIBIOTICS (10) Hypothermia Assessment/Plan: -monitor temp -kinsey hugger as needed for temp <96F Code(s): T68.XXXA - HYPOTHERMIA, INITIAL ENCOUNTER (11) Abnormal LFt Assessment/Plan: Repeat--Gi consult noted and appreciated--FAMILY HESITENT TO PURSUE GB SURGERY US noted-- MRCP NO DILATION NO STONES ACTIGAL IF LFT IMPROVING CONSIDER DC
[2018-09-22 08:38] LABS: BASO % 0.5 % (0-2.0); EOS % 6.4 % (0-4.5); HEMATOCRIT 27.4 % (32.4-45.2); HEMOGLOBIN 8.9 GM/dL (10.7-15.3); LYMPH % 16.3 % (8-40); MCH 31.2 pg (25.7-33.7); MCHC 32.6 g/dl (32.0-36.0); MEAN CELL VOLUME 95.8 fl (80-96); MEAN PLT VOLUME 8.2 fl (7.5-11.1); MONO % 9.7 % (3.8-10.2); NEUT % 67.1 % (42.8-82.8); RBC 2.86 M/mm3 (3.60-5.2); RDW 16.5 % (11.6-15.6); WHITE BLOOD COUNT 4.8 K/mm3 (4.0-10.0)
[2018-09-22 09:07] LABS: ALBUMIN 2.4 g/dl (3.4-5.0); BILIRUBIN,DIRECT 0.1 mg/dL (0.0-0.2); BILIRUBIN,TOTAL 0.2 mg/dL (0.2-1); BLOOD UREA NITROGEN 36.1 mg/dL (7-18); CREATININE 0.5 mg/dL (0.55-1.3); POTASSIUM 5.7 mmol/L (3.5-5.1); TOT PROT 8.1 g/dl (6.4-8.2)
[2018-09-22 09:14] LABS: PLATELET COUNT 256 K/MM3 (134-434)
--- NOTE | 2018-09-22 09:34 | PN ---
Progress Note (short form) - Note Progress Note: PULMONARY AWAKE/ALERT/TRACH COLLAR LFT'S NORMALIZING GI NOTED APPRECIATED vss/afebrile spo2 97% on fio2 40% vent Gen: NAD on vent Heart: RRR Lung: decreased breath sounds at the bases Abd: soft, nontender Ext: mild edema Multiple Sclerosis Chronic Respiratory Failure s/p Tracheostomy Functional Quadriplegia Atelectasis HTN Hypothyroidism Likely passage of cbd stone No objection to continuing treatment as an outpatient Resp status is stable Dr Yonas Lorenzo
[2018-09-22] MEDS ORDERED: PT OWN MED DRAWER 7, Y5N ONE (11:13)
[2018-09-22] MEDS: SODIUM CHLORIDE 1 GM TABLET GT SCH ×2 (11:37→22:35)
[2018-09-22] MEDS: AMINO ACIDS/PROTEIN HYDROLYS 30 ML LIQUID.PKT GT SCH (11:37)
[2018-09-22] MEDS: carBAMazepine 200 MG TABLET GT SCH ×2 (11:37→22:36)
[2018-09-22] MEDS: POLYETHYLENE GLYCOL 3350 119 GM BTL GT SCH ×2 (11:38→22:39)
[2018-09-22] MEDS: amLODIPine BESYLATE 2.5 MG TABLET (FP) GT SCH (11:38)
[2018-09-22] MEDS: LACTOBACILLUS ACIDOPHILUS 1 TABLET GT SCH ×2 (11:40→22:37)
[2018-09-22] MEDS: URSODIOL 300 MG CAPSULE PO SCH ×2 (11:41→22:37)
[2018-09-22] MEDS: SERTRALINE HCL 50 MG TABLET (FP) GT SCH (11:41)
[2018-09-22] MEDS: LORATADINE 10 MG TABLET GT SCH (11:41)
[2018-09-22] MEDS: ASCORBIC ACID 500 MG TABLET (FP) GT SCH (11:41)
[2018-09-22] MEDS: PREGABALIN 50 MG CAPSULE PO SCH ×2 (11:41→22:35)
--- NOTE | 2018-09-22 13:12 | PN ---
Progress Note (short form) - Note Progress Note: NEUROLOGY PROGRESS: Events reviewed and discussed with staff. Consults from GI, pulm, wound care read and appreciated. Pt examined with her mother, sister and [employer] at bedside. Without facial pains on current regimen of pregabalin 100 mg Q12H and CBZ 200 mg Q12. D/C home held due to transaminitis and GI workup. Ultrasound revealed cholelithiasis and mild common bile duct dilation, however abdominal MRI was unremarkable. Consideration of gallbladder surgery due to possible passed stone, and family and patient reluctant to proceed. Still receiving wound cares for multiple stage IV decubiti. Without complaints at this time. Na- 139 CRP 8.1; AST 265-> 75; ALT 248-> 144; Alk phos= ~400s. GGT= 241; TSH= 9.98; stool guiac (-) EXAM: Unchanged. Fluent speech. Good comprehension Full EOM's without Nystagmus. Tetraplegia/areflexia Feels touch above the knees. IMP: Advanced MS Trigeminal Neuralgia Hyponatremia due to Carbamazepine. Transaminitis- (possible contribution of CBZ, however being tapered) Plan: Increase Pregabalin to 150 mg PO q 12 hrs Decrease carbamazepine to 100 mg q 12 hrs then D/C in 1 week. Stable for D/C. Neuro f/u as out patient. Thank you very much, Rom Conroy MD
--- NOTE | 2018-09-22 13:53 | PN.GI ---
GI Progress Note Subjective: no acute events over night , no fever, chills, has small BM , tolerating diet , no abdominal pain reported , no N/V Lfts trending down MRCP negative for acute pathology - Objective Vital Signs: Vital Signs Temperature 97.4 F L 09/22/18 10:00 Pulse Rate 85 09/22/18 11:53 Respiratory Rate 16 09/22/18 10:00 Blood Pressure 151/74 09/22/18 10:00 O2 Sat by Pulse Oximetry (%) 98 09/22/18 11:53 Constitutional: Well Nourished Eyes: Yes: Conjunctiva Clear HENT: Yes: Atraumatic, Normocephalic Neck: Yes: Other (tracheostomy on vent) Cardiovascular: Yes: Regular Rate and Rhythm Respiratory: Yes: CTA Bilaterally Labs: CBC, [facility] 09/22/18 08:17 09/22/18 08:17 INR, PTT INR 1.05 (0.83-1.09) 09/13/18 05:53 <Jarrett Singh - Last Filed: 09/22/18 13:55> - Objective Vital Signs: Vital Signs Temperature 97.5 F L 09/22/18 18:00 Pulse Rate 79 09/22/18 18:00 Respiratory Rate 18 09/22/18 18:00 Blood Pressure 146/60 09/22/18 18:00 O2 Sat by Pulse Oximetry (%) 99 09/22/18 20:55 Labs: CBC, [facility] 09/22/18 08:17 09/22/18 08:17 INR, PTT INR 1.05 (0.83-1.09) 09/13/18 05:53 <Silverio Griffiths - Last Filed: 09/22/18 21:53> Assessment/Plan Impression: # Resolved CBD stone passage #Anemia is likely due to decubiti losses given that stool is occult negative #Constipation due to quadriplegia Plan: * trend LFTs * Patient and family have been informed by Dr Griffiths about GB surgery to prevent repeated CBD stone passage and cholecystitis * Actigal should be continued indefinitely or until GB is removed Problem List - Problems (1) Abnormal LFTs Code(s): R94.5 - ABNORMAL RESULTS OF LIVER FUNCTION STUDIES (2) Cholelithiasis Code(s): K80.20 - CALCULUS OF GALLBLADDER W/O CHOLECYSTITIS W/O OBSTRUCTION (3) Hyponatremia Code(s): E87.1 - HYPO-OSMOLALITY AND HYPONATREMIA (4) Acute on chronic respiratory failure with hypoxia and hypercapnia Code(s): J96.21 - ACUTE AND CHRONIC RESPIRATORY FAILURE WITH HYPOXIA; J96.22 - ACUTE AND CHRONIC RESPIRATORY FAILURE WITH HYPERCAPNIA (5) Anemia Code(s): D64.9 - ANEMIA, UNSPECIFIED Qualifiers: Other causes of anemia: other cause, not classified (6) Constipation Code(s): K59.00 - CONSTIPATION, UNSPECIFIED (7) Decubital ulcer Code(s): L89.90 - PRESSURE ULCER OF UNSPECIFIED SITE, UNSPECIFIED STAGE Qualifiers: Pressure injury location: unspecified location Pressure injury stage: unspecified pressure injury stage Qualified Code(s): L89.90 - Pressure ulcer of unspecified site, unspecified stage (8) Functional 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 (9) Gastrostomy tube obstruction Code(s): K94.29 - OTHER COMPLICATIONS OF GASTROSTOMY (10) Multiple sclerosis Code(s): G35 - MULTIPLE SCLEROSIS (11) Choledocholithiasis Code(s): K80.50 - CALCULUS OF BILE DUCT W/O CHOLANGITIS OR CHOLECYST W/O OBST (12) Depression Code(s): F32.9 - MAJOR DEPRESSIVE DISORDER, SINGLE EPISODE, UNSPECIFIED (13) HTN (hypertension) Code(s): I10 - ESSENTIAL (PRIMARY) HYPERTENSION (14) Hypothyroid Code(s): E03.9 - HYPOTHYROIDISM, UNSPECIFIED <Jarrett Singh - Last Filed: 09/22/18 13:55> ATTENDING PHYSICIAN STATEMENT I saw and evaluated the patient. I reviewed the resident's note and discussed the case with the resident. I agree with the resident's findings and plan as documented. SUBJECTIVE: No pain, OBJECTIVE: Abd: BS normoactive , nontender MRCP reveals that the gallstone has passed LFTs continue to normalize ASSESSMENT AND PLAN: Resolved choledocholithaisis Continue Actigal If family declines GB surgery can consider discharge <Silverio Griffiths - Last Filed: 09/22/18 21:53> Problem List - Problems (1) Abnormal LFTs Code(s): R94.5 - ABNORMAL RESULTS OF LIVER FUNCTION STUDIES (2) Cholelithiasis Code(s): K80.20 - CALCULUS OF GALLBLADDER W/O CHOLECYSTITIS W/O OBSTRUCTION (3) Hyponatremia Code(s): E87.1 - HYPO-OSMOLALITY AND HYPONATREMIA (4) Acute on chronic respiratory failure with hypoxia and hypercapnia Code(s): J96.21 - ACUTE AND CHRONIC RESPIRATORY FAILURE WITH HYPOXIA; J96.22 - ACUTE AND CHRONIC RESPIRATORY FAILURE WITH HYPERCAPNIA (5) Anemia Code(s): D64.9 - ANEMIA, UNSPECIFIED Qualifiers: Other causes of anemia: other cause, not classified (6) Constipation Code(s): K59.00 - CONSTIPATION, UNSPECIFIED (7) Decubital ulcer Code(s): L89.90 - PRESSURE ULCER OF UNSPECIFIED SITE, UNSPECIFIED STAGE Qualifiers: Pressure injury location: unspecified location Pressure injury stage: unspecified pressure injury stage Qualified Code(s): L89.90 - Pressure ulcer of unspecified site, unspecified stage (8) Functional 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 (9) Gastrostomy tube obstruction Code(s): K94.29 - OTHER COMPLICATIONS OF GASTROSTOMY (10) Multiple sclerosis Code(s): G35 - MULTIPLE SCLEROSIS (11) Choledocholithiasis Code(s): K80.50 - CALCULUS OF BILE DUCT W/O CHOLANGITIS OR CHOLECYST W/O OBST (12) Depression Code(s): F32.9 - MAJOR DEPRESSIVE DISORDER, SINGLE EPISODE, UNSPECIFIED (13) HTN (hypertension) Code(s): I10 - ESSENTIAL (PRIMARY) HYPERTENSION (14) Hypothyroid Code(s): E03.9 - HYPOTHYROIDISM, UNSPECIFIED <Silverio Griffiths - Last Filed: 09/22/18 21:53>
[2018-09-22 15:09] LABS: TRANSGLUTAMINASE IGA < 2 U/mL (0-3); TRANSGLUTAMINASE IGG < 2 U/mL (0-5)
--- NOTE | 2018-09-22 15:16 | EKG ---
Test Reason : Blood Pressure : / mmHG Vent. Rate : 078 BPM Atrial Rate : 078 BPM P-R Int : 152 ms QRS Dur : 100 ms QT Int : 346 ms P-R-T Axes : 050 002 045 degrees QTc Int : 394 ms NORMAL SINUS RHYTHM NORMAL ECG WHEN COMPARED WITH ECG OF 12-SEP-2018 12:29, NO SIGNIFICANT CHANGE WAS FOUND Confirmed by SLOAN LUZ MD ([id number]) on 09/22/2018 3:16:11 PM Referred By: Confirmed By:SLOAN LUZ MD
[2018-09-22] MEDS ORDERED: SODIUM CHLORIDE 1,000 ML IV SCH (15:45)
[2018-09-22] MEDS: LIDOCAINE PATCH REMOVAL MC SCH ×2 (16:15→22:39)
--- NOTE | 2018-09-22 16:55 | PN ---
Progress Note (short form) - Note Progress Note: Renal follow up for hyponatremia Pt seen and examined at the bedside awake and alert offers no acute complaints Vital Signs Temperature 97.5 F L 09/22/18 15:54 Pulse Rate 80 09/22/18 16:05 Respiratory Rate 16 09/22/18 15:54 Blood Pressure 137/68 09/22/18 15:54 O2 Sat by Pulse Oximetry (%) 99 09/22/18 16:05 Intake & Output 09/19/18 09/20/18 09/21/18 09/22/18 23:59 23:59 23:59 23:59 Intake Total 1648 2141 645 Output Total 2300 2200 1325 1500 Balance - -855 NAD on trach collar RRR, no M/R CTA, no rales or wheeze soft NT/ND no LE or sacral edema CBC, BMP 09/22/18 08:17 09/22/18 08:17 Current Medications Amino Acids (Prosource No Carb Liquid Pkt) 30 ml GT DAILY@0800 [facility] Last Admin: 09/22/18 11:37 Dose: 30 ml Amlodipine Besylate (Norvasc -) 2.5 mg GT DAILY [facility] Last Admin: 09/22/18 11:38 Dose: 2.5 mg Ascorbic Acid (Vitamin C -) 500 mg GT DAILY [facility] Last Admin: 09/22/18 11:41 Dose: 500 mg Carbamazepine (Tegretol -) 100 mg GT BID [facility] Stop: 09/23/18 21:59 Hydralazine HCl (Apresoline -) 50 mg GT TID [facility] Last Admin: 09/22/18 15:04 Dose: 50 mg Sodium Chloride (Normal Saline -) 1,000 mls @ 83 mls/hr IV [facility] Stop: 09/22/18 23:44 Lactobacillus Acidophilus (Bacid -) 1 tab GT BID [facility] Last Admin: 09/22/18 11:40 Dose: 1 tab Levothyroxine Sodium 75 mcg/ (Levothyroxine Sodium 50 mcg) 125 mcg GT DAILY@ 0700 [facility] Last Admin: 09/22/18 06:30 Dose: 125 mcg Loratadine (Claritin -) 10 mg GT DAILY [facility] Last Admin: 09/22/18 11:41 Dose: 10 mg Mirtazapine (Remeron -) 7.5 mg GT HS [facility] Last Admin: 09/21/18 23:17 Dose: 7.5 mg Miscellaneous (Lidoderm Patch Removal) 1 each MC DAILY@2200 [facility] Polyethylene Glycol (Miralax (For Daily Use) -) 17 gm GT BID [facility] Last Admin: 09/22/18 11:38 Dose: 17 gm Pregabalin (Lyrica -) 150 mg PO BID [facility] Sertraline HCl (Zoloft -) 50 mg GT DAILY [facility] Last Admin: 09/22/18 11:41 Dose: 50 mg Sodium Chloride (Sodium Chloride Tablet -) 1 gm GT BID [facility] Last Admin: 09/22/18 11:37 Dose: 1 gm Ursodiol (Actigal -) 300 mg PO BID [facility] Last Admin: 09/22/18 11:41 Dose: 300 mg 53 year old woman with history of multiple sclerosis, respiratory failure on trach, hx of SIADH, neurogenic bladder who presented from home with increased respiratory secretions and found to have hyponatremia with Na of 116. #Hyponatremia secondary to SIADH vs. intravascular volume depletion-less likely #Increased respiratory secretions #Anemia #Multiple sclerosis #Chronic respiratory failure with trach #Persistent Hyperkalemia Serum potassium remains elevated despite reduction in total volume of feeds. will need to change feeds to Nephro (low potassium, high protein) will also given NS x 8 hours Will need to repeat K in the AM to ensure that it does not continue to increase Avoid high potassium foods and drinks orally Serum na is stable New Rx for tube feeds faxed over to pharmacy company Case discussed with Dr. Jessica Liriano DO
[2018-09-22] MEDS: MIRTAZAPINE 15 MG TABLET (FP) GT SCH (22:36)
[2018-09-23] MEDS ORDERED: LEVOTHYROXINE NA 75 MCG TABLET (FP) ONE (06:18)
[2018-09-23] MEDS ORDERED: LEVOTHYROXINE NA 50 MCG TABLET (FP) ONE (06:19)
[2018-09-23] MEDS: hydrALAZINE HCL 50 MG TABLET (FP) GT SCH ×2 (06:20→14:19)
[2018-09-23] MEDS: LEVOTHYROXINE GT SCH (06:20)
[2018-09-23] MEDS ORDERED: INSULIN (NOVOLOG) ASPART 100 UNITS/ML 10ML VIAL ONE (07:05)
[2018-09-23 08:26] LABS: ALBUMIN 2.4 g/dl (3.4-5.0); BILIRUBIN,DIRECT 0.1 mg/dL (0.0-0.2); BILIRUBIN,TOTAL 0.2 mg/dL (0.2-1); BLOOD UREA NITROGEN 33.9 mg/dL (7-18); CREATININE 0.4 mg/dL (0.55-1.3); TOT PROT 7.6 g/dl (6.4-8.2)
[2018-09-23] MEDS ORDERED: PT OWN MED DRAWER 7, Y5N ONE ×2 (10:53→11:05)
[2018-09-23] MEDS: AMINO ACIDS/PROTEIN HYDROLYS 30 ML LIQUID.PKT GT SCH (10:56)
[2018-09-23] MEDS: amLODIPine BESYLATE 2.5 MG TABLET (FP) GT SCH (10:57)
[2018-09-23] MEDS: LORATADINE 10 MG TABLET GT SCH (10:58)
[2018-09-23] MEDS: URSODIOL 300 MG CAPSULE PO SCH (10:59)
[2018-09-23] MEDS: LACTOBACILLUS ACIDOPHILUS 1 TABLET GT SCH (10:59)
[2018-09-23] MEDS: SERTRALINE HCL 50 MG TABLET (FP) GT SCH (11:00)
[2018-09-23] MEDS: ASCORBIC ACID 500 MG TABLET (FP) GT SCH (11:00)
[2018-09-23] MEDS: PREGABALIN 50 MG CAPSULE PO SCH (11:01)
[2018-09-23] MEDS: carBAMazepine 200 MG TABLET GT SCH (11:04)
[2018-09-23] MEDS: SODIUM CHLORIDE 1 GM TABLET GT SCH (11:05)
[2018-09-23] MEDS: POLYETHYLENE GLYCOL 3350 119 GM BTL GT SCH (11:06)
--- NOTE | 2018-09-23 11:42 | PN ---
Progress Note (short form) - Note Progress Note: Renal follow up for hyponatremia Pt seen and examined at the bedside awake and alert offers no acute complaints Vital Signs Temperature 98.7 F 09/23/18 06:00 Pulse Rate 98 H 09/23/18 08:25 Respiratory Rate 16 09/23/18 08:25 Blood Pressure 138/76 09/23/18 06:00 O2 Sat by Pulse Oximetry (%) 97 09/23/18 08:25 Intake & Output 09/20/18 09/21/18 09/22/18 09/23/18 23:59 23:59 23:59 23:59 Intake Total 2141 898 1872 Output Total 2200 1325 2300 600 Balance -59 -1325 -1402 1272 NAD on trach collar RRR, no M/R CTA, no rales or wheeze soft NT/ND no LE or sacral edema CBC, BMP 09/22/18 08:17 09/23/18 07:20 Current Medications Amino Acids (Prosource No Carb Liquid Pkt) 30 ml GT DAILY@0800 [facility] Last Admin: 09/23/18 10:56 Dose: 30 ml Amlodipine Besylate (Norvasc -) 2.5 mg GT DAILY [facility] Last Admin: 09/23/18 10:57 Dose: 2.5 mg Ascorbic Acid (Vitamin C -) 500 mg GT DAILY [facility] Last Admin: 09/23/18 11:00 Dose: 500 mg Carbamazepine (Tegretol -) 100 mg GT BID [facility] Stop: 09/23/18 21:59 Last Admin: 09/23/18 11:04 Dose: 100 mg Hydralazine HCl (Apresoline -) 50 mg GT TID [facility] Last Admin: 09/23/18 06:20 Dose: 50 mg Lactobacillus Acidophilus (Bacid -) 1 tab GT BID [facility] Last Admin: 09/23/18 10:59 Dose: 1 tab Levothyroxine Sodium 75 mcg/ (Levothyroxine Sodium 50 mcg) 125 mcg GT DAILY@ 0700 [facility] Last Admin: 09/23/18 06:20 Dose: 125 mcg Loratadine (Claritin -) 10 mg GT DAILY [facility] Last Admin: 09/23/18 10:58 Dose: 10 mg Mirtazapine (Remeron -) 7.5 mg GT HS [facility] Last Admin: 09/22/18 22:36 Dose: 7.5 mg Miscellaneous (Lidoderm Patch Removal) 1 each MC DAILY@2200 [facility] Last Admin: 09/22/18 22:39 Dose: Not Given Polyethylene Glycol (Miralax (For Daily Use) -) 17 gm GT BID [facility] Last Admin: 09/23/18 11:06 Dose: Not Given Pregabalin (Lyrica -) 150 mg PO BID [facility] Last Admin: 09/23/18 11:01 Dose: 150 mg Sertraline HCl (Zoloft -) 50 mg GT DAILY [facility] Last Admin: 09/23/18 11:00 Dose: 50 mg Sodium Chloride (Sodium Chloride Tablet -) 1 gm GT BID [facility] Last Admin: 09/23/18 11:05 Dose: 1 gm Ursodiol (Actigal -) 300 mg PO BID [facility] Last Admin: 09/23/18 10:59 Dose: 300 mg 53 year old woman with history of multiple sclerosis, respiratory failure on trach, hx of SIADH, neurogenic bladder who presented from home with increased respiratory secretions and found to have hyponatremia with Na of 116. #Hyponatremia secondary to SIADH vs. intravascular volume depletion-less likely #Increased respiratory secretions #Anemia #Multiple sclerosis #Chronic respiratory failure with trach #Persistent Hyperkalemia potassium improved s/p change in tube feeds can be discharged on Nephro at 82cc per hour for 12 hours overnight Rx for tube feed sent to the pharmacy Serum Na stable, continue salt tabs and fluid restriction discharge planning as per primary Tyshawn Liriano DO
--- NOTE | 2018-09-23 11:48 | DS ---
Physical Examination Vital Signs: Vital Signs Temperature 98.7 F 09/23/18 06:00 Pulse Rate 98 H 09/23/18 08:25 Respiratory Rate 16 09/23/18 08:25 Blood Pressure 138/76 09/23/18 06:00 O2 Sat by Pulse Oximetry (%) 97 09/23/18 08:25 Findings/Remarks: Ms. Wood is a 53yo F with PMH significant for advanced MS (30 years), on trach collar with vent at night, 2L home O2, with G-tube, chronic hyponatremia, hypothyroidism, trigeminal neuralgia, recurrent UTI, wheelchair bound, presenting with 2 days of increasing amounts of secretions requiring frequent suctioning. Has not been requiring lasix at home. Sent urine via PCP over the weekend, reported negative - pt gets straight cathed, denies abdominal pain / fullness. Denies fever, chills, night sweats, chest pain, headache, wheezes, cough. Pt endorses throat pain over the weekend. Constitutional: Yes: No Distress, Calm Eyes: Yes: Conjunctiva Clear HENT: Yes: Atraumatic Neck: Yes: Other (trach) Cardiovascular: Yes: Regular Rate and Rhythm Respiratory: Yes: Regular, Diminished, Other (O2 via trach collar) Gastrointestinal: Yes: Normal Bowel Sounds, Soft, Other (G tube) Renal/: Yes: Raza Present Musculoskeletal: Yes: Muscle Weakness Extremities: Yes: WNL Edema: No Wound/Incision: Yes: Dressing Dry and Intact Neurological: Yes: Alert, Pre-Existing Deficit Psychiatric: Yes: Alert Labs: CBC, BMP 09/22/18 08:17 09/23/18 07:20 Discharge Summary Reason For Visit: HYPONATREMIA Current Active Problems Choledocholithiasis (Acute) Cholelithiasis (Acute) Hyponatremia (Acute) Hospital Course: see progress notes Laboratory Tests 09/12/18 09/12/18 09/12/18 13:40 13:40 15:24 WBC 7.8 RBC 2.80 L Hgb 8.7 L Hct 26.1 L MCV 93.1 MCH 31.2 MCHC 33.5 RDW 16.2 H Plt Count 127 L D MPV 9.0 Absolute Neuts (auto) 6.2 Total Counted Neutrophils % 79.5 Neutrophils % (Manual) Lymphocytes % 11.5 Lymphocytes % (Manual) Monocytes % 6.4 Monocytes % (Manual) Eosinophils % 2.5 Eosinophils % (Manual) Basophils % 0.1 Nucleated RBC % 0 Metamyelocytes Platelet Estimate Platelet Comment ESR PT with INR INR PTT (Actin FS) Sodium 116 L* 116 L* Potassium 4.4 4.4 Chloride 81 L 80 L Carbon Dioxide 29 30 Anion Gap 6 L 6 L BUN 16.0 15.7 Creatinine 0.3 L 0.2 L Est GFR (CKD-EPI)AfAm 150.44 171.91 Est GFR (CKD-EPI)NonAf 129.80 148.33 POC Glucometer Random Glucose 82 81 Serum Osmolality Lactic Acid Uric Acid Calcium 8.1 L 8.2 L Phosphorus Magnesium Iron TIBC Iron Saturation Unsaturated IBC Ferritin Total Bilirubin 0.2 0.1 L Direct Bilirubin GGT AST 24 25 ALT 41 38 Alkaline Phosphatase 265 H 251 H Creatine Kinase 82 Troponin I < 0.02 C-Reactive Protein B-Natriuretic Peptide 2284.3 H Total Protein 7.4 7.2 Albumin 2.3 L 2.2 L Total Amylase Lipase Serum Folate TSH Free T4 Urine Color Urine Appearance Urine pH Ur Specific Jackson Urine Protein Urine Glucose (UA) Urine Ketones Urine Blood Urine Nitrite Urine Bilirubin Urine Urobilinogen Ur Leukocyte Esterase Urine WBC (Auto) Urine RBC (Auto) Urine Casts (Auto) U Pathogenic Cast Auto U Epithel Cells (Auto) Urine Bacteria (Auto) Urine Osmolality Ur Random Sodium Ur Sodium 24 Hour Stool Occult Blood Carbamazepine OSEI Screen Tiss Transglutamin IgG Tiss Transglutamin IgA Blood Type Antibody Screen Crossmatch 09/12/18 09/12/18 09/12/18 16:16 17:17 17:17 WBC RBC Hgb Hct MCV MCH MCHC RDW Plt Count MPV Absolute Neuts (auto) Total Counted Neutrophils % Neutrophils % (Manual) Lymphocytes % Lymphocytes % (Manual) Monocytes % Monocytes % (Manual) Eosinophils % Eosinophils % (Manual) Basophils % Nucleated RBC % Metamyelocytes Platelet Estimate Platelet Comment ESR PT with INR INR PTT (Actin FS) Sodium Potassium Chloride Carbon Dioxide Anion Gap BUN Creatinine Est GFR (CKD-EPI)AfAm Est GFR (CKD-EPI)NonAf POC Glucometer Random Glucose Serum Osmolality 242 L Lactic Acid Uric Acid Calcium Phosphorus Magnesium Iron TIBC Iron Saturation Unsaturated IBC Ferritin Total Bilirubin Direct Bilirubin GGT AST ALT Alkaline Phosphatase Creatine Kinase Troponin I C-Reactive Protein B-Natriuretic Peptide Total Protein Albumin Total Amylase Lipase Serum Folate TSH Free T4 Urine Color Yellow Urine Appearance Turbid Urine pH 7.0 Ur Specific Jackson 1.016 Urine Protein 2+ H Urine Glucose (UA) Negative Urine Ketones Negative Urine Blood 2+ H Urine Nitrite Negative Urine Bilirubin Negative Urine Urobilinogen 0.2 Ur Leukocyte Esterase 3+ H Urine WBC (Auto) 2944 Urine RBC (Auto) Urine Casts (Auto) 75 U Pathogenic Cast Auto None seen U Epithel Cells (Auto) 29.1 Urine Bacteria (Auto) 758.3 Urine Osmolality 488 Ur Random Sodium Ur Sodium 24 Hour Cancelled Stool Occult Blood Carbamazepine OSEI Screen Tiss Transglutamin IgG Tiss Transglutamin IgA Blood Type Antibody Screen Crossmatch 09/12/18 09/12/18 09/12/18 20:30 21:30 21:30 WBC RBC Hgb Hct MCV MCH MCHC RDW Plt Count MPV Absolute Neuts (auto) Total Counted Neutrophils % Neutrophils % (Manual) Lymphocytes % Lymphocytes % (Manual) Monocytes % Monocytes % (Manual) Eosinophils % Eosinophils % (Manual) Basophils % Nucleated RBC % Metamyelocytes Platelet Estimate Platelet Comment ESR PT with INR INR PTT (Actin FS) Sodium 119 L Potassium 4.2 Chloride 82 L Carbon Dioxide 32 Anion Gap 5 L BUN 13.3 Creatinine 0.3 L Est GFR (CKD-EPI)AfAm 150.44 Est GFR (CKD-EPI)NonAf 129.80 POC Glucometer Random Glucose 72 L Serum Osmolality Lactic Acid Uric Acid 1.2 L Calcium 8.0 L Phosphorus Magnesium Iron TIBC Iron Saturation Unsaturated IBC Ferritin Total Bilirubin Direct Bilirubin GGT AST ALT Alkaline Phosphatase Creatine Kinase Troponin I C-Reactive Protein B-Natriuretic Peptide Total Protein Albumin Total Amylase Lipase Serum Folate TSH Free T4 Urine Color Urine Appearance Urine pH Ur Specific Jackson Urine Protein Urine Glucose (UA) Urine Ketones Urine Blood Urine Nitrite Urine Bilirubin Urine Urobilinogen Ur Leukocyte Esterase Urine WBC (Auto) Urine RBC (Auto) Urine Casts (Auto) U Pathogenic Cast Auto U Epithel Cells (Auto) Urine Bacteria (Auto) Urine Osmolality 465 Ur Random Sodium 67 Ur Sodium 24 Hour Stool Occult Blood Carbamazepine OSEI Screen Tiss Transglutamin IgG Tiss Transglutamin IgA Blood Type Antibody Screen Crossmatch 09/12/18 09/13/18 09/13/18 21:30 01:20 01:20 WBC 4.3 RBC 2.35 L Hgb 7.5 L Hct 21.6 L D MCV 92.0 MCH 31.9 MCHC 34.7 RDW 16.1 H Plt Count 102 L MPV 9.7 Absolute Neuts (auto) 2.6 Total Counted 100 Neutrophils % 58.0 D Neutrophils % (Manual) 58.0 Lymphocytes % 36.0 D Lymphocytes % (Manual) 36.0 D Monocytes % 4.0 Monocytes % (Manual) 4 D Eosinophils % 1.0 Eosinophils % (Manual) 1.0 D Basophils % Nucleated RBC % 0 Metamyelocytes 1 D Platelet Estimate Slt decrease Platelet Comment No clotting detected ESR PT with INR INR PTT (Actin FS) Sodium 121 L Potassium 4.1 Chloride 84 L Carbon Dioxide 28 Anion Gap 9 BUN 15.1 Creatinine 0.3 L Est GFR (CKD-EPI)AfAm 150.44 Est GFR (CKD-EPI)NonAf 129.80 POC Glucometer Random Glucose 65 L Serum Osmolality Lactic Acid Uric Acid Calcium 7.7 L Phosphorus Magnesium Iron TIBC Iron Saturation Unsaturated IBC Ferritin Total Bilirubin Direct Bilirubin GGT AST ALT Alkaline Phosphatase Creatine Kinase Troponin I C-Reactive Protein B-Natriuretic Peptide Total Protein Albumin Total Amylase Lipase Serum Folate TSH Free T4 Cancelled Urine Color Yellow Urine Appearance Turbid Urine pH 6.0 Ur Specific Jackson 1.015 Urine Protein 2+ H Urine Glucose (UA) 1+ H Urine Ketones Negative Urine Blood 1+ H Urine Nitrite Negative Urine Bilirubin Negative Urine Urobilinogen 0.2 Ur Leukocyte Esterase 3+ H Urine WBC (Auto) 886 Urine RBC (Auto) 18.4 Urine Casts (Auto) 3 U Pathogenic Cast Auto U Epithel Cells (Auto) 12.9 Urine Bacteria (Auto) 1303.4 Urine Osmolality Ur Random Sodium Ur Sodium 24 Hour Stool Occult Blood Carbamazepine OSEI Screen Tiss Transglutamin IgG Tiss Transglutamin IgA Blood Type Antibody Screen Crossmatch 09/13/18 09/13/18 09/13/18 01:20 05:53 05:53 WBC 3.2 L RBC 2.45 L Hgb 7.7 L Hct 22.8 L MCV 93.1 MCH 31.6 MCHC 33.9 RDW 16.1 H Plt Count 100 L MPV 9.0 Absolute Neuts (auto) Total Counted Neutrophils % Neutrophils % (Manual) Lymphocytes % Lymphocytes % (Manual) Monocytes % Monocytes % (Manual) Eosinophils % Eosinophils % (Manual) Basophils % Nucleated RBC % Metamyelocytes Platelet Estimate Platelet Comment ESR PT with INR 12.40 INR 1.05 PTT (Actin FS) 34.9 Sodium Potassium Chloride Carbon Dioxide Anion Gap BUN Creatinine Est GFR (CKD-EPI)AfAm Est GFR (CKD-EPI)NonAf POC Glucometer Random Glucose Serum Osmolality Lactic Acid 0.6 Uric Acid Calcium Phosphorus Magnesium Iron TIBC Iron Saturation Unsaturated IBC Ferritin Total Bilirubin Direct Bilirubin GGT AST ALT Alkaline Phosphatase Creatine Kinase Troponin I C-Reactive Protein B-Natriuretic Peptide Total Protein Albumin Total Amylase Lipase Serum Folate TSH Free T4 Urine Color Urine Appearance Urine pH Ur Specific Jackson Urine Protein Urine Glucose (UA) Urine Ketones Urine Blood Urine Nitrite Urine Bilirubin Urine Urobilinogen Ur Leukocyte Esterase Urine WBC (Auto) Urine RBC (Auto) Urine Casts (Auto) U Pathogenic Cast Auto U Epithel Cells (Auto) Urine Bacteria (Auto) Urine Osmolality Ur Random Sodium Ur Sodium 24 Hour Stool Occult Blood Carbamazepine OSEI Screen Tiss Transglutamin IgG Tiss Transglutamin IgA Blood Type Antibody Screen Crossmatch 09/13/18 09/13/18 09/13/18 05:53 12:20 18:30 WBC RBC Hgb Hct MCV MCH MCHC RDW Plt Count MPV Absolute Neuts (auto) Total Counted Neutrophils % Neutrophils % (Manual) Lymphocytes % Lymphocytes % (Manual) Monocytes % Monocytes % (Manual) Eosinophils % Eosinophils % (Manual) Basophils % Nucleated RBC % Metamyelocytes Platelet Estimate Platelet Comment ESR PT with INR INR PTT (Actin FS) Sodium 118 L* 120 L 127 L Potassium 4.3 Chloride 83 L Carbon Dioxide 28 Anion Gap 6 L BUN 16.2 Creatinine 0.3 L Est GFR (CKD-EPI)AfAm 150.44 Est GFR (CKD-EPI)NonAf 129.80 POC Glucometer Random Glucose 88 Serum Osmolality Lactic Acid Uric Acid Calcium 7.7 L Phosphorus 3.3 Magnesium 1.5 L Iron TIBC Iron Saturation Unsaturated IBC Ferritin Total Bilirubin 0.2 Direct Bilirubin GGT AST 24 ALT 35 Alkaline Phosphatase 214 H Creatine Kinase Troponin I C-Reactive Protein B-Natriuretic Peptide Total Protein 6.6 Albumin 2.0 L Total Amylase Lipase Serum Folate TSH 9.98 H Free T4 1.05 Urine Color Urine Appearance Urine pH Ur Specific Jackson Urine Protein Urine Glucose (UA) Urine Ketones Urine Blood Urine Nitrite Urine Bilirubin Urine Urobilinogen Ur Leukocyte Esterase Urine WBC (Auto) Urine RBC (Auto) Urine Casts (Auto) U Pathogenic Cast Auto U Epithel Cells (Auto) Urine Bacteria (Auto) Urine Osmolality Ur Random Sodium Ur Sodium 24 Hour Stool Occult Blood Carbamazepine OSEI Screen Tiss Transglutamin IgG Tiss Transglutamin IgA Blood Type Antibody Screen Crossmatch 09/13/18 09/14/18 09/14/18 21:10 05:50 05:50 WBC 2.7 L RBC 2.17 L Hgb 6.9 L* Hct 20.7 L MCV 95.7 MCH 31.7 MCHC 33.1 RDW 16.5 H Plt Count 98 L MPV 9.2 Absolute Neuts (auto) Total Counted Neutrophils % Neutrophils % (Manual) Lymphocytes % Lymphocytes % (Manual) Monocytes % Monocytes % (Manual) Eosinophils % Eosinophils % (Manual) Basophils % Nucleated RBC % Metamyelocytes Platelet Estimate Platelet Comment ESR PT with INR INR PTT (Actin FS) Sodium 131 L Potassium Chloride Carbon Dioxide Anion Gap BUN Creatinine Est GFR (CKD-EPI)AfAm Est GFR (CKD-EPI)NonAf POC Glucometer Random Glucose Serum Osmolality Lactic Acid Uric Acid Calcium Phosphorus Magnesium Iron TIBC Iron Saturation Unsaturated IBC Ferritin Total Bilirubin Direct Bilirubin GGT AST ALT Alkaline Phosphatase Creatine Kinase Troponin I C-Reactive Protein B-Natriuretic Peptide Total Protein Albumin Total Amylase Lipase Serum Folate TSH Free T4 Urine Color Urine Appearance Urine pH Ur Specific Jackson Urine Protein Urine Glucose (UA) Urine Ketones Urine Blood Urine Nitrite Urine Bilirubin Urine Urobilinogen Ur Leukocyte Esterase Urine WBC (Auto) Urine RBC (Auto) Urine Casts (Auto) U Pathogenic Cast Auto U Epithel Cells (Auto) Urine Bacteria (Auto) Urine Osmolality Ur Random Sodium Ur Sodium 24 Hour Stool Occult Blood Carbamazepine 7.7 OSEI Screen Tiss Transglutamin IgG Tiss Transglutamin IgA Blood Type Antibody Screen Crossmatch 09/14/18 09/14/18 09/14/18 05:50 05:50 07:51 WBC RBC Hgb Hct MCV MCH MCHC RDW Plt Count MPV Absolute Neuts (auto) Total Counted Neutrophils % Neutrophils % (Manual) Lymphocytes % Lymphocytes % (Manual) Monocytes % Monocytes % (Manual) Eosinophils % Eosinophils % (Manual) Basophils % Nucleated RBC % Metamyelocytes Platelet Estimate Platelet Comment ESR PT with INR INR PTT (Actin FS) Sodium 129 L Potassium 4.0 Chloride 92 L Carbon Dioxide 32 Anion Gap 6 L BUN 22.3 H Creatinine 0.4 L Est GFR (CKD-EPI)AfAm 136.86 Est GFR (CKD-EPI)NonAf 118.08 POC Glucometer Random Glucose 104 Serum Osmolality Lactic Acid Uric Acid Calcium 7.9 L Phosphorus Magnesium 2.2 Iron 68 TIBC 208 L Iron Saturation 33 Unsaturated IBC 140 Ferritin 953.6 H Total Bilirubin 0.2 Direct Bilirubin GGT AST 17 ALT 27 Alkaline Phosphatase 206 H Creatine Kinase Troponin I C-Reactive Protein B-Natriuretic Peptide Total Protein 5.9 L Albumin 1.9 L Total Amylase Lipase Serum Folate TSH Free T4 Urine Color Urine Appearance Urine pH Ur Specific Jackson Urine Protein Urine Glucose (UA) Urine Ketones Urine Blood Urine Nitrite Urine Bilirubin Urine Urobilinogen Ur Leukocyte Esterase Urine WBC (Auto) Urine RBC (Auto) Urine Casts (Auto) U Pathogenic Cast Auto U Epithel Cells (Auto) Urine Bacteria (Auto) Urine Osmolality Ur Random Sodium Ur Sodium 24 Hour Stool Occult Blood Carbamazepine OSEI Screen Tiss Transglutamin IgG Tiss Transglutamin IgA Blood Type O POSITIVE Antibody Screen Negative Crossmatch See Detail 09/14/18 09/14/18 09/14/18 10:59 10:59 17:00 WBC 4.0 RBC 2.49 L Hgb 7.9 L Hct 23.5 L MCV 94.3 MCH 31.7 MCHC 33.6 RDW 16.4 H Plt Count 127 L D MPV 9.1 Absolute Neuts (auto) 2.6 Total Counted Neutrophils % 65.7 Neutrophils % (Manual) Lymphocytes % 12.3 D Lymphocytes % (Manual) Monocytes % 12.0 H D Monocytes % (Manual) Eosinophils % 9.7 H D Eosinophils % (Manual) Basophils % 0.3 Nucleated RBC % 0 Metamyelocytes Platelet Estimate Platelet Comment ESR PT with INR INR PTT (Actin FS) Sodium 127 L 127 L Potassium Chloride Carbon Dioxide Anion Gap BUN Creatinine Est GFR (CKD-EPI)AfAm Est GFR (CKD-EPI)NonAf POC Glucometer Random Glucose Serum Osmolality Lactic Acid Uric Acid Calcium Phosphorus Magnesium Iron TIBC Iron Saturation Unsaturated IBC Ferritin Total Bilirubin Direct Bilirubin GGT AST ALT Alkaline Phosphatase Creatine Kinase Troponin I C-Reactive Protein B-Natriuretic Peptide Total Protein Albumin Total Amylase Lipase Serum Folate TSH Free T4 Urine Color Urine Appearance Urine pH Ur Specific Jackson Urine Protein Urine Glucose (UA) Urine Ketones Urine Blood Urine Nitrite Urine Bilirubin Urine Urobilinogen Ur Leukocyte Esterase Urine WBC (Auto) Urine RBC (Auto) Urine Casts (Auto) U Pathogenic Cast Auto U Epithel Cells (Auto) Urine Bacteria (Auto) Urine Osmolality Ur Random Sodium Ur Sodium 24 Hour Stool Occult Blood Carbamazepine OSEI Screen Tiss Transglutamin IgG Tiss Transglutamin IgA Blood Type Antibody Screen Crossmatch 09/15/18 09/15/18 09/15/18 09:20 09:20 09:20 WBC 6.1 RBC 2.47 L Hgb 7.8 L Hct 23.3 L MCV 94.6 MCH 31.6 MCHC 33.4 RDW 16.5 H Plt Count 135 MPV 9.4 Absolute Neuts (auto) 4.9 Total Counted Neutrophils % 80.4 D Neutrophils % (Manual) Lymphocytes % 8.1 D Lymphocytes % (Manual) Monocytes % 5.7 Monocytes % (Manual) Eosinophils % 5.6 H Eosinophils % (Manual) Basophils % 0.2 Nucleated RBC % 0 Metamyelocytes Platelet Estimate Platelet Comment ESR PT with INR INR PTT (Actin FS) Sodium Potassium Chloride Carbon Dioxide Anion Gap BUN Creatinine Est GFR (CKD-EPI)AfAm Est GFR (CKD-EPI)NonAf POC Glucometer Random Glucose Serum Osmolality Lactic Acid Uric Acid Calcium Phosphorus Magnesium Iron TIBC Iron Saturation Unsaturated IBC Ferritin Total Bilirubin Direct Bilirubin GGT AST ALT Alkaline Phosphatase Creatine Kinase Troponin I C-Reactive Protein B-Natriuretic Peptide Total Protein Albumin Total Amylase Lipase Serum Folate 19 H TSH Free T4 Urine Color Urine Appearance Urine pH Ur Specific Jackson Urine Protein Urine Glucose (UA) Urine Ketones Urine Blood Urine Nitrite Urine Bilirubin Urine Urobilinogen Ur Leukocyte Esterase Urine WBC (Auto) Urine RBC (Auto) Urine Casts (Auto) U Pathogenic Cast Auto U Epithel Cells (Auto) Urine Bacteria (Auto) Urine Osmolality Ur Random Sodium Ur Sodium 24 Hour Stool Occult Blood Carbamazepine OSEI Screen Negative Tiss Transglutamin IgG Tiss Transglutamin IgA Blood Type Antibody Screen Crossmatch 09/15/18 09/15/18 09/15/18 16:05 16:05 18:47 WBC RBC Hgb Hct MCV MCH MCHC RDW Plt Count MPV Absolute Neuts (auto) Total Counted Neutrophils % Neutrophils % (Manual) Lymphocytes % Lymphocytes % (Manual) Monocytes % Monocytes % (Manual) Eosinophils % Eosinophils % (Manual) Basophils % Nucleated RBC % Metamyelocytes Platelet Estimate Platelet Comment ESR PT with INR INR PTT (Actin FS) Sodium 130 L 128 L Potassium 4.9 Chloride 93 L Carbon Dioxide 34 H Anion Gap 2 L BUN 33.2 H Creatinine 0.5 L Est GFR (CKD-EPI)AfAm 127.17 Est GFR (CKD-EPI)NonAf 109.72 POC Glucometer 137 Random Glucose 46 L* Serum Osmolality Lactic Acid Uric Acid Calcium 8.2 L Phosphorus Magnesium Iron TIBC Iron Saturation Unsaturated IBC Ferritin Total Bilirubin Direct Bilirubin GGT AST ALT Alkaline Phosphatase Creatine Kinase Troponin I C-Reactive Protein B-Natriuretic Peptide Total Protein Albumin Total Amylase Lipase Serum Folate TSH Free T4 Urine Color Urine Appearance Urine pH Ur Specific Jackson Urine Protein Urine Glucose (UA) Urine Ketones Urine Blood Urine Nitrite Urine Bilirubin Urine Urobilinogen Ur Leukocyte Esterase Urine WBC (Auto) Urine RBC (Auto) Urine Casts (Auto) U Pathogenic Cast Auto U Epithel Cells (Auto) Urine Bacteria (Auto) Urine Osmolality Ur Random Sodium Ur Sodium 24 Hour Stool Occult Blood Carbamazepine OSEI Screen Tiss Transglutamin IgG Tiss Transglutamin IgA Blood Type Antibody Screen Crossmatch 09/16/18 09/16/18 09/17/18 07:00 07:00 06:30 WBC 6.2 RBC 2.40 L Hgb 7.8 L Hct 22.7 L MCV 94.6 MCH 32.4 MCHC 34.3 RDW 16.5 H Plt Count 160 MPV 9.5 Absolute Neuts (auto) 4.4 Total Counted Neutrophils % 70.9 Neutrophils % (Manual) Lymphocytes % 18.4 D Lymphocytes % (Manual) Monocytes % 7.0 Monocytes % (Manual) Eosinophils % 3.3 Eosinophils % (Manual) Basophils % 0.4 Nucleated RBC % 0 Metamyelocytes Platelet Estimate Platelet Comment ESR PT with INR INR PTT (Actin FS) Sodium 132 L 135 L Potassium 5.2 H 4.8 Chloride 94 L 100 Carbon Dioxide 32 33 H Anion Gap 6 L 2 L BUN 36.2 H 39.8 H Creatinine 0.7 0.6 Est GFR (CKD-EPI)AfAm 113.84 119.77 Est GFR (CKD-EPI)NonAf 98.23 103.34 POC Glucometer Random Glucose 82 138 H Serum Osmolality Lactic Acid Uric Acid Calcium 8.1 L 8.5 Phosphorus 3.6 3.2 Magnesium 2.6 H 2.7 H Iron TIBC Iron Saturation Unsaturated IBC Ferritin Total Bilirubin 0.3 Direct Bilirubin GGT AST 25 ALT 36 Alkaline Phosphatase 226 H Creatine Kinase Troponin I C-Reactive Protein B-Natriuretic Peptide Total Protein 7.3 Albumin 2.3 L Total Amylase Lipase Serum Folate TSH Free T4 Urine Color Urine Appearance Urine pH Ur Specific Jackson Urine Protein Urine Glucose (UA) Urine Ketones Urine Blood Urine Nitrite Urine Bilirubin Urine Urobilinogen Ur Leukocyte Esterase Urine WBC (Auto) Urine RBC (Auto) Urine Casts (Auto) U Pathogenic Cast Auto U Epithel Cells (Auto) Urine Bacteria (Auto) Urine Osmolality Ur Random Sodium Ur Sodium 24 Hour Stool Occult Blood Carbamazepine OSEI Screen Tiss Transglutamin IgG Tiss Transglutamin IgA Blood Type Antibody Screen Crossmatch 09/19/18 09/19/18 09/19/18 08:58 08:58 11:45 WBC 9.5 RBC 2.38 L Hgb 7.6 L Hct 23.0 L MCV 96.4 H MCH 32.1 MCHC 33.3 RDW 16.6 H Plt Count 251 D MPV 9.0 Absolute Neuts (auto) Total Counted Neutrophils % Neutrophils % (Manual) Lymphocytes % Lymphocytes % (Manual) Monocytes % Monocytes % (Manual) Eosinophils % Eosinophils % (Manual) Basophils % Nucleated RBC % Metamyelocytes Platelet Estimate Platelet Comment ESR PT with INR INR PTT (Actin FS) Sodium 136 Potassium 5.5 H Chloride 100 Carbon Dioxide 37 H Anion Gap -1 L BUN 39.6 H Creatinine 0.6 Est GFR (CKD-EPI)AfAm 119.77 Est GFR (CKD-EPI)NonAf 103.34 POC Glucometer Random Glucose 139 H Serum Osmolality Lactic Acid Uric Acid Calcium 9.1 Phosphorus Magnesium Iron TIBC Iron Saturation Unsaturated IBC Ferritin Total Bilirubin 0.2 Direct Bilirubin GGT AST 167 H ALT 159 H Alkaline Phosphatase 390 H Creatine Kinase Troponin I C-Reactive Protein B-Natriuretic Peptide Total Protein 7.8 Albumin 2.4 L Total Amylase Lipase Serum Folate TSH Free T4 Urine Color Urine Appearance Urine pH Ur Specific Jackson Urine Protein Urine Glucose (UA) Urine Ketones Urine Blood Urine Nitrite Urine Bilirubin Urine Urobilinogen Ur Leukocyte Esterase Urine WBC (Auto) Urine RBC (Auto) Urine Casts (Auto) U Pathogenic Cast Auto U Epithel Cells (Auto) Urine Bacteria (Auto) Urine Osmolality Ur Random Sodium Ur Sodium 24 Hour Stool Occult Blood Negative Carbamazepine OSEI Screen Tiss Transglutamin IgG Tiss Transglutamin IgA Blood Type Antibody Screen Crossmatch 09/19/18 09/19/18 09/20/18 12:24 21:50 07:30 WBC 7.6 RBC 2.69 L Hgb 8.5 L Hct 25.4 L MCV 94.6 MCH 31.4 MCHC 33.2 RDW 17.0 H Plt Count 223 MPV 8.7 Absolute Neuts (auto) Total Counted Neutrophils % Neutrophils % (Manual) Lymphocytes % Lymphocytes % (Manual) Monocytes % Monocytes % (Manual) Eosinophils % Eosinophils % (Manual) Basophils % Nucleated RBC % Metamyelocytes Platelet Estimate Platelet Comment ESR PT with INR INR PTT (Actin FS) Sodium 137 Potassium 5.5 H Chloride 101 Carbon Dioxide 35 H Anion Gap 1 L BUN 40.5 H Creatinine 0.5 L Est GFR (CKD-EPI)AfAm 127.17 Est GFR (CKD-EPI)NonAf 109.72 POC Glucometer Random Glucose 125 H Serum Osmolality Lactic Acid Uric Acid Calcium 8.9 Phosphorus Magnesium Iron TIBC Iron Saturation Unsaturated IBC Ferritin Total Bilirubin 0.2 Direct Bilirubin GGT AST 265 H ALT 248 H Alkaline Phosphatase 416 H Creatine Kinase Troponin I C-Reactive Protein B-Natriuretic Peptide Total Protein 7.5 Albumin 2.3 L Total Amylase Lipase Serum Folate TSH Free T4 Urine Color Urine Appearance Urine pH Ur Specific Jackson Urine Protein Urine Glucose (UA) Urine Ketones Urine Blood Urine Nitrite Urine Bilirubin Urine Urobilinogen Ur Leukocyte Esterase Urine WBC (Auto) Urine RBC (Auto) Urine Casts (Auto) U Pathogenic Cast Auto U Epithel Cells (Auto) Urine Bacteria (Auto) Urine Osmolality Ur Random Sodium Ur Sodium 24 Hour Stool Occult Blood Carbamazepine OSEI Screen Tiss Transglutamin IgG Tiss Transglutamin IgA Blood Type O POSITIVE Antibody Screen Negative Crossmatch See Detail 09/20/18 09/21/18 09/21/18 07:30 08:20 08:20 WBC 5.2 RBC 2.67 L Hgb 8.5 L Hct 25.0 L MCV 93.4 MCH 31.8 MCHC 34.1 RDW 17.5 H Plt Count 235 MPV 8.5 Absolute Neuts (auto) 3.4 Total Counted Neutrophils % 65.7 Neutrophils % (Manual) Lymphocytes % 15.7 Lymphocytes % (Manual) Monocytes % 10.7 H Monocytes % (Manual) Eosinophils % 7.6 H D Eosinophils % (Manual) Basophils % 0.3 Nucleated RBC % 0 Metamyelocytes Platelet Estimate Platelet Comment ESR PT with INR INR PTT (Actin FS) Sodium 139 Potassium 5.4 H Chloride 100 Carbon Dioxide 35 H Anion Gap 3 L BUN 40.3 H Creatinine 0.5 L Est GFR (CKD-EPI)AfAm 127.17 Est GFR (CKD-EPI)NonAf 109.72 POC Glucometer Random Glucose 121 H Serum Osmolality Lactic Acid Uric Acid Calcium 9.2 Phosphorus Magnesium Iron TIBC Iron Saturation Unsaturated IBC Ferritin Total Bilirubin 0.2 0.1 L Direct Bilirubin 0.1 GGT AST 144 H 141 H ALT 199 H 192 H Alkaline Phosphatase 427 H 403 H Creatine Kinase Troponin I C-Reactive Protein 8.1 H B-Natriuretic Peptide Total Protein 8.2 8.1 Albumin 2.4 L 2.4 L Total Amylase 62 Lipase 159 Serum Folate TSH Free T4 Urine Color Urine Appearance Urine pH Ur Specific Jackson Urine Protein Urine Glucose (UA) Urine Ketones Urine Blood Urine Nitrite Urine Bilirubin Urine Urobilinogen Ur Leukocyte Esterase Urine WBC (Auto) Urine RBC (Auto) Urine Casts (Auto) U Pathogenic Cast Auto U Epithel Cells (Auto) Urine Bacteria (Auto) Urine Osmolality Ur Random Sodium Ur Sodium 24 Hour Stool Occult Blood Carbamazepine OSEI Screen Tiss Transglutamin IgG Tiss Transglutamin IgA Blood Type Antibody Screen Crossmatch 09/21/18 09/21/18 09/22/18 08:20 16:45 08:17 WBC RBC Hgb Hct MCV MCH MCHC RDW Plt Count MPV Absolute Neuts (auto) Total Counted Neutrophils % Neutrophils % (Manual) Lymphocytes % Lymphocytes % (Manual) Monocytes % Monocytes % (Manual) Eosinophils % Eosinophils % (Manual) Basophils % Nucleated RBC % Metamyelocytes Platelet Estimate Platelet Comment ESR PT with INR INR PTT (Actin FS) Sodium 139 Potassium 5.7 H Chloride 102 Carbon Dioxide 35 H Anion Gap 2 L BUN 36.1 H Creatinine 0.5 L Est GFR (CKD-EPI)AfAm 127.17 Est GFR (CKD-EPI)NonAf 109.72 POC Glucometer Random Glucose 116 H Serum Osmolality Lactic Acid Uric Acid Calcium 9.0 Phosphorus Magnesium Iron TIBC Iron Saturation Unsaturated IBC Ferritin Total Bilirubin 0.2 Direct Bilirubin 0.1 GGT 241 H AST 75 H ALT 144 H Alkaline Phosphatase 365 H Creatine Kinase Troponin I C-Reactive Protein B-Natriuretic Peptide Total Protein 8.1 Albumin 2.4 L Total Amylase Lipase Serum Folate TSH Free T4 Urine Color Urine Appearance Urine pH Ur Specific Jackson Urine Protein Urine Glucose (UA) Urine Ketones Urine Blood Urine Nitrite Urine Bilirubin Urine Urobilinogen Ur Leukocyte Esterase Urine WBC (Auto) Urine RBC (Auto) Urine Casts (Auto) U Pathogenic Cast Auto U Epithel Cells (Auto) Urine Bacteria (Auto) Urine Osmolality Ur Random Sodium Ur Sodium 24 Hour Stool Occult Blood Carbamazepine OSEI Screen Tiss Transglutamin IgG < 2 Tiss Transglutamin IgA < 2 Blood Type Antibody Screen Crossmatch 09/22/18 09/23/18 09/23/18 08:17 07:20 07:20 WBC 4.8 RBC 2.86 L Hgb 8.9 L Hct 27.4 L MCV 95.8 MCH 31.2 MCHC 32.6 RDW 16.5 H Plt Count 256 MPV 8.2 Absolute Neuts (auto) 3.2 Total Counted Neutrophils % 67.1 Neutrophils % (Manual) Lymphocytes % 16.3 Lymphocytes % (Manual) Monocytes % 9.7 Monocytes % (Manual) Eosinophils % 6.4 H Eosinophils % (Manual) Basophils % 0.5 Nucleated RBC % 0 Metamyelocytes Platelet Estimate Platelet Comment ESR 99 H PT with INR INR PTT (Actin FS) Sodium 139 Potassium 5.0 Chloride 103 Carbon Dioxide 35 H Anion Gap 1 L BUN 33.9 H Creatinine 0.4 L Est GFR (CKD-EPI)AfAm 136.86 Est GFR (CKD-EPI)NonAf 118.08 POC Glucometer Random Glucose 116 H Serum Osmolality Lactic Acid Uric Acid Calcium 9.0 Phosphorus Magnesium Iron TIBC Iron Saturation Unsaturated IBC Ferritin Total Bilirubin 0.2 Direct Bilirubin 0.1 GGT AST 43 H ALT 104 H Alkaline Phosphatase 330 H Creatine Kinase Troponin I C-Reactive Protein B-Natriuretic Peptide Total Protein 7.6 Albumin 2.4 L Total Amylase Lipase Serum Folate TSH Free T4 Urine Color Urine Appearance Urine pH Ur Specific Jackson Urine Protein Urine Glucose (UA) Urine Ketones Urine Blood Urine Nitrite Urine Bilirubin Urine Urobilinogen Ur Leukocyte Esterase Urine WBC (Auto) Urine RBC (Auto) Urine Casts (Auto) U Pathogenic Cast Auto U Epithel Cells (Auto) Urine Bacteria (Auto) Urine Osmolality Ur Random Sodium Ur Sodium 24 Hour Stool Occult Blood Carbamazepine OSEI Screen Tiss Transglutamin IgG Tiss Transglutamin IgA Blood Type Antibody Screen Crossmatch Active Medications Generic Name Dose Route Start Last Admin Trade Name Freq PRN Reason Stop Dose Admin Amino Acids 30 ml 09/15/18 08:00 09/23/18 10:56 Prosource No Carb Liquid Pkt GT 30 ml DAILY@0800 CATHERINE Administration Amlodipine Besylate 2.5 mg 09/15/18 10:00 09/23/18 10:57 Norvasc - GT 2.5 mg DAILY CATHERINE Administration Ascorbic Acid 500 mg 09/15/18 10:00 09/23/18 11:00 Vitamin C - GT 500 mg DAILY CATHERINE Administration Carbamazepine 100 mg 09/22/18 13:07 09/23/18 11:04 Tegretol - GT 09/23/18 21:59 100 mg BID CATHERINE Administration Hydralazine HCl 50 mg 09/14/18 22:00 09/23/18 06:20 Apresoline - GT 50 mg TID CATHERINE Administration Lactobacillus Acidophilus 1 tab 09/14/18 22:00 09/23/18 10:59 Bacid - GT 1 tab BID CATHERINE Administration Levothyroxine Sodium 75 mcg/ 125 mcg 09/15/18 07:00 09/23/18 06:20 Levothyroxine Sodium 50 mcg GT 125 mcg DAILY@0700 CATHERINE Administration Loratadine 10 mg 09/15/18 10:00 09/23/18 10:58 Claritin - GT 10 mg DAILY CATHERINE Administration Mirtazapine 7.5 mg 09/14/18 22:00 09/22/18 22:36 Remeron - GT 7.5 mg HS CATHERINE Administration Miscellaneous 1 each 09/22/18 16:00 09/22/18 22:39 Lidoderm Patch Removal MC Not Given DAILY@2200 CATHERINE Polyethylene Glycol 17 gm 09/20/18 22:00 09/23/18 11:06 Miralax (For Daily Use) - GT Not Given BID [facility] Pregabalin 150 mg 09/22/18 13:07 09/23/18 11:01 Lyrica - PO 150 mg BID CATHERINE Administration Sertraline HCl 50 mg 09/15/18 10:00 09/23/18 11:00 Zoloft - GT 50 mg DAILY CATHERINE Administration Sodium Chloride 1 gm 09/14/18 22:00 09/23/18 11:05 Sodium Chloride Tablet - GT 1 gm BID CATHERINE Administration Ursodiol 300 mg 09/20/18 22:00 09/23/18 10:59 Actigal - PO 300 mg BID CATHERINE Administration Microbiology 09/13/18 06:25 Sputum - Endotrachea Suction/Ventilator Gram Stain - Final 09/13/18 06:25 Sputum - Endotrachea Suction/Ventilator Sputum Culture - Final Pseudomonas Aeruginosa Proteus Mirabilis 09/13/18 05:53 Blood - Peripheral Venous Blood Culture - Final NO GROWTH AFTER 5 DAYS INCUBATION 09/13/18 06:10 Blood - Peripheral Venous Blood Culture - Final NO GROWTH AFTER 5 DAYS INCUBATION 09/12/18 19:20 Urine - Urine - Catheterized Urine Culture - Final Contaminated: Please Repeat Condition: Good - Instructions Diet, Activity, Other Instructions: Follow up with PCP in 1 week of discharge Follow up with Dr Vick as scheduled Follow up with tube and manifold builder Dr Doe continue with medication as prescribed return to ER if develop AMS, fever, chest pain, respiratory distress wound with alginate packing every other day if no fecal contamination after cleaning with NS dysphagia diet is for pleasure feeds Continue with Nepro at 84cc/hr with 15cc water flushes Disposition: VNS/HOME HEALTH CARE - Home Medications Comprehensive Discharge Medication List: Ambulatory Orders Melatonin 2 mg GT HS 05/03/18 Multivitamin [Multiple Vitamins] 1 each GT DAILY 05/03/18 Albuterol 2.5/Ipratropium 0.5 [Duoneb -] 1 amp NEB Q6H PRN #45 amp 05/28/18 Sodium Chloride Tablet - 1 gm GT DAILY #30 tablet 07/25/18 Carbamazepine [Tegretol -] 200 mg GT TIDCM tablet 08/22/18 Levothyroxine [Synthroid -] 100 mcg GT DAILY@0700 tablet 08/22/18 Amino Acids/Protein Hydrolys [Prosource No Carb Liquid Pkt] 30 ml PO DAILY@0800 09/12/18 Amlodipine Besylate [Norvasc -] 5 mg GT DAILY 09/12/18 Ascorbic Acid [Vitamin C -] 500 mg GT DAILY 09/12/18 Lactobacillus Acidophilus [Bacid -] 1 tab GT BID 09/12/18 Loratadine [Claritin -] 10 mg GT DAILY 09/12/18 Mirtazapine [Remeron -] 7.5 mg GT HS 09/12/18 Sertraline HCl [Zoloft -] 50 mg GT DAILY 09/12/18 hydrALAZINE HCL [Apresoline -] 50 mg GT TID 09/12/18 Levothyroxine [Synthroid -] 125 mcg GT DAILY@0700 tablet 09/19/18 Polyethylene Glycol 3350 [Miralax (For Bowel Prep) -] 17 gm PO DAILY #1 bottle 09/19/18 Ursodiol [Actigal -] 300 mg PO BID #60 capsule 09/22/18
[2018-09-23 14:31] VITALS: BP 160/90; PULSE 88
[2018-09-23 14:52] VITALS: TEMP 98.2
== END 2018-09-23 15:39 | disposition home health service (06) | DRG 643 ==
LOC: JER 12:14 → JERBED 16:05 → JICU 19:41 → J5S 09-14 17:41
PROVIDERS: ADMIT Family Medicine; ATTEND Family Medicine
PROC: 5A1955Z Respiratory Ventilation, Greater than 96 Consecutive Hours (ICD-10-PCS; principal; 2018-09-13)
PROC: 3E0G76Z Introduction of Nutritional Substance into Upper GI, Via Natural or Artificial Opening (ICD-10-PCS; 2018-09-13)
PROC: 30233N1 Transfusion of Nonautologous Red Blood Cells into Peripheral Vein, Percutaneous Approach (ICD-10-PCS; 2018-09-19)
DX: E22.2 Syndrome of inappropriate secretion of antidiuretic hormone (principal); L89.214 Pressure ulcer of right hip, stage 4; L89.94 Pressure ulcer of unspecified site, stage 4; L89.154 Pressure ulcer of sacral region, stage 4; R53.2 Functional quadriplegia; G93.41 Metabolic encephalopathy; J96.21 Acute and chronic respiratory failure with hypoxia; J96.22 Acute and chronic respiratory failure with hypercapnia; E87.1 Hypo-osmolality and hyponatremia; N39.0 Urinary tract infection, site not specified; J98.11 Atelectasis; J96.10 Chronic respiratory failure, unspecified whether with hypoxia or hypercapnia; D61.818 Other pancytopenia; E03.9 Hypothyroidism, unspecified; G50.0 Trigeminal neuralgia; N31.9 Neuromuscular dysfunction of bladder, unspecified; G35 Multiple sclerosis; D72.1 Eosinophilia; K80.50 Calculus of bile duct without cholangitis or cholecystitis without obstruction; H54.8 Legal blindness, as defined in USA; E78.5 Hyperlipidemia, unspecified; K59.00 Constipation, unspecified; F17.210 Nicotine dependence, cigarettes, uncomplicated; R41.82 Altered mental status, unspecified; R13.10 Dysphagia, unspecified; D63.8 Anemia in other chronic diseases classified elsewhere; L89.892 Pressure ulcer of other site, stage 2; R94.5 Abnormal results of liver function studies; F32.9 Major depressive disorder, single episode, unspecified; E87.5 Hyperkalemia; Z93.0 Tracheostomy status; Z99.3 Dependence on wheelchair; Z99.81 Dependence on supplemental oxygen; Z16.24 Resistance to multiple antibiotics; Z93.1 Gastrostomy status
CPT/HCPCS: 36415; 36430; 36511; 71045-TC-FY; 73090-TC-RT-FY; 73110-TC-RT-FY; 74019-TC-FY; 74181-TC; 76705-TC; 80048; 80053; 80076; 80156; 81003; 82150; 82272; 82550; 82728; 82746; 82962; 82977; 83516; 83540; 83550; 83605; 83690; 83735; 83880; 83930; 83935; 84100; 84295; 84300; 84439; 84443; 84484; 84550; 85025; 85027; 85610; 85651; 85730; 86038; 86140; 86850; 86900; 86901; 86922; 87040; 87070; 87086; 87186; 87205; 93005; 93010; 94002; 94640; 97161-GP; 99285-25; J1644; J7030; P9038; P9058

== ENCOUNTER 2018-10-12 11:04 | Inpatient (IN) | payer OTHER ==
[2018-10-12] MEDS ORDERED: SODIUM CHLORIDE 1,000 ML IV STA (11:21)
[2018-10-12] MEDS ORDERED: MEROPENEM 1 GM in DEXTROSE 5%-WATER 100 ML IVPB ONE (11:35)
[2018-10-12] MEDS ORDERED: VANCOMYCIN HCL 1,500 MG in DEXTROSE 5%-WATER - 500 ML IVPB ONE (11:36)
[2018-10-12] MEDS ORDERED: MEROPENEM 1 GM VIAL (RESTRICTED TO ID) IVPB ONE ×2 (11:40→20:32)
[2018-10-12] MEDS ORDERED: VANCOMYCIN 1 GRAM (PRE-DOCKED) 1,000 MG/250 ML BAG IVPB ONE (11:40)
[2018-10-12 11:45] LABS: VENOUS PO2 38.2 mmHg (30-40)
[2018-10-12 11:49] LABS: VENOUS PC02 74.8 mmHg (41-51); VENOUS PH 7.19 (7.31-7.41)
[2018-10-12 12:12] LABS: ALK PHOS 234 U/L (45-117); ANION GAP 5 MMOL/L (8-16); BILIRUBIN,TOTAL 0.2 mg/dL (0.2-1); BLOOD UREA NITROGEN 86.4 mg/dL (7-18); CALCIUM 8.7 mg/dL (8.5-10.1); CHLORIDE 105 mmol/L (98-107); CO2 27 mmol/L (21-32); CREATININE 1.4 mg/dL (0.55-1.3); GLUCOSE,RANDOM 80 mg/dL (74-106); SGOT/AST 37 U/L (15-37); SGPT/ALT 35 U/L (13-61); SODIUM 138 mmol/L (136-145); TOT PROT 6.4 g/dl (6.4-8.2)
[2018-10-12 12:27] LABS: POTASSIUM 6.3 mmol/L (3.5-5.1)
[2018-10-12 12:46] LABS: INR 1.13 (0.83-1.09); PROTHROMBIN TIME (PATIENT) 13.4 SEC (9.7-13.0)
[2018-10-12 12:47] LABS: BASO % 0.2 % (0-2.0); EOS % 0.1 % (0-4.5); HEMATOCRIT 29.2 % (32.4-45.2); HEMOGLOBIN 8.9 GM/dL (10.7-15.3); LYMPH % 1.8 % (8-40); MCHC 30.5 g/dl (32.0-36.0); MEAN CELL VOLUME 101.6 fl (80-96); MEAN PLT VOLUME 11.8 fl (7.5-11.1); MONO % 5.3 % (3.8-10.2); NEUT % 92.6 % (42.8-82.8); PLATELET COUNT 87 K/MM3 (134-434); RBC 2.87 M/mm3 (3.60-5.2); RDW 17.3 % (11.6-15.6); WHITE BLOOD COUNT 20.1 K/mm3 (4.0-10.0)
--- NOTE | 2018-10-12 13:11 | PDOC ---
Past History - Past Medical History Allergies/Adverse Reactions: Allergies Allergy/AdvReac Type Severity Reaction Status Date / Time chloral hydrate Allergy Intermediate Rash Verified 10/12/18 12:02 [Chloral Hydrate] azathioprine [From Imuran] Allergy Rash Verified 10/12/18 12:02 azathioprine sodium Allergy Rash Verified 10/12/18 12:02 [From Imuran] adhesive tape AdvReac Severe sensitivity Verified 10/12/18 12:02 to glue adhesive AdvReac Unknown Verified 10/12/18 12:02 Home Medications: Ambulatory Orders Amlodipine Besylate [Norvasc -] 5 mg PO DAILY 10/12/18 Clonazepam [Klonopin] 0.5 mg PO BID 10/12/18 Hydralazine HCl 50 mg PO TID 10/12/18 Levocetirizine Dihydrochloride 5 mg PO DAILY 10/12/18 Loratadine 10 mg PO DAILY 10/12/18 Metoprolol Tartrate [Lopressor -] 50 mg PO BID 10/12/18 Mirtazapine 7.5 mg PO HS 10/12/18 Pregabalin [Lyrica -] 150 mg PO BID 10/12/18 Sertraline HCl [Zoloft] 100 mg PO DAILY 10/12/18 Sodium Chloride 1,000 mg PO BID 10/12/18 Ursodiol [Actigal] 300 mg PO BID 10/12/18 - Surgical History GI Surgery: (BACLOFEN IMPLANT) - Suicide/Smoking/Psychosocial Hx Number of Cigarettes Smoked Daily: 0 Cigars Per Day: 0 Procedures - Central Line Central Line Lumen: triple Central Line Position: internal jugular (R) Anesthesia: 1% Lidocaine Amount of anesthesia (ccs): 5 Complications: none Post Central Line Insertion: sutured, good blood return Progress: 10/12/18 14:08 Consent obtained from Mother by Dr. Higuera. Procedure was supervised by Dr. Edwards, PGY3. Post-procedure X-ray ordered to confirm placement of line. 10/12/18 15:08 Post-procedure X-ray shows central venous catheter in the subclavian vein and not within the IVC. The triple lumen was removed, and pressure was applied over the area. No bleeding was observed and the procedure was repeated. Central Line Lumen: triple Central Line Position: internal jugular (R) Anesthesia: 1% Lidocaine Amount of anesthesia (ccs): 5 Complications: none Post Central Line Insertion: sutured, good blood return Progress: Post-procedure X-ray shows central venous catheter in the IVC. 10/13/18 10:07 Follow up: Official Post-procedure X-ray reports: Exam Date: 10/12/18 Status: [place] [address] Unit Number: [id number] EXAM#: TYPE/EXAM: RESULT: [id number] RAD/CHEST X-RAY PORTABLE* HISTORY PROVIDED: Central line placement. A single frontal portable projection of the chest at 2: 18 PM is submitted. Since a prior study of earlier in the day, a right-sided triple-lumen catheter has been placed via the internal jugular vein. The catheter is noted within the subclavian vein and not within the IVC. Catheter repositioning is now recommended. There is no evidence of pneumothorax. A tracheostomy tube is identified within the mid trachea. The heart is mildly enlarged with atelectatic changes of the right lower lobe. IMPRESSION: Central venous catheter placement as described above. Repositioning recommended. A single frontal portable projection of the chest at 3:13 PM is submitted. Since the prior study of earlier in the day, a right-sided triple lumen catheter has been repositioned. Its distal tip is now in the region of the SVC. IMPRESSION: Repositioning of triple lumen catheter. Reported By: Aleksandr Xavier MD [id number] ED Treatment Course - LABORATORY CBC & Chemistry Diagram: 10/13/18 05:35 10/13/18 05:35 - Medications Given in the ED: ED Medications Discontinued Medications Generic Name Dose Route Start Last Admin Trade Name Freq PRN Reason Stop Dose Admin Sodium Chloride 1,000 mls @ 1,000 mls/hr 10/12/18 11:21 10/12/18 11:35 Normal Saline - IV 10/12/18 12:20 1,000 mls/hr ASDIR STA Administration Meropenem 1 gm/ Dextrose 100 mls @ 200 mls/hr 10/12/18 11:35 10/12/18 11:52 IVPB 10/12/18 12:04 200 mls/hr ONCE ONE Administration *DC/Admit/Observation/Transfer Diagnosis at time of Disposition: Acute renal insufficiency, Hyperkalemia Pneumonia Qualifiers: Pneumonia type: due to unspecified organism Laterality: right Lung location: lower lobe of lung Qualified Code(s): J18.1 - Lobar pneumonia, unspecified organism - Discharge Dispostion Condition at time of disposition: Critical - Referrals - Patient Instructions - Post Discharge Activity
--- NOTE | 2018-10-12 13:27 | EKG ---
Test Reason : Blood Pressure : / mmHG Vent. Rate : 071 BPM Atrial Rate : 071 BPM P-R Int : 152 ms QRS Dur : 092 ms QT Int : 372 ms P-R-T Axes : 047 035 042 degrees QTc Int : 404 ms NORMAL SINUS RHYTHM NORMAL ECG WHEN COMPARED WITH ECG OF 22-SEP-2018 12:23, NO SIGNIFICANT CHANGE WAS FOUND Confirmed by FLORA RAMIREZ MD ([id number]) on 10/12/2018 1:27:18 PM Referred By: Confirmed By:FLORA RAMIREZ MD
--- NOTE | 2018-10-12 14:02 | PN ---
Teaching Attending Note Name of Resident: Donna Olson ATTENDING PHYSICIAN STATEMENT I saw and evaluated the patient. I reviewed the resident's note and discussed the case with the resident. I agree with the resident's findings and plan as documented. SUBJECTIVE: Pt seen and examined in the ED. Briefly, 53yo female with h/o HTN, hypothyroidism, chronic hyponatremia, advanced MS, chronic hypoxic respiratory failure s/p trach on home O2, recurrent UTI, well known from prior admissions who was admitted with lethargy and hypotension. History obtained from mother at bedside. States that she has had increased secretions the past day. She has an indwelling perera at home. Found to be hypoxic, hypotensive in the ER, started on antibiotics, IVF and central line placed for pressor support. OBJECTIVE: Vital Signs Period Temp Pulse Resp BP Sys/Morillo Pulse Ox Last 24 Hr 97.4 F-97.4 F 55-72 14-16 54-101/31-63 95-100 Intake & Output 10/09/18 10/10/18 10/11/18 10/12/18 23:59 23:59 23:59 23:59 Weight 72.575 kg Gen: vented, lethargic Heart: RRR Lung: scattered rhonchi Abd: soft, nontender Ext: no edema CBC, BMP 10/12/18 11:30 10/12/18 11:30 Active Medications Norepinephrine Bitartrate 8, (000 mcg/ Dextrose) 500 mls @ 8.16 mls/hr IV ASDIR CATHERINE; Protocol ASSESSMENT AND PLAN: Acute on Chronic Hypoxic and Hypercapneic Respiratory Failure r/o Pneumonia r/o UTI Septic Shock Acute Kidney Injury Hyperkalemia Thrombocytopenia Advanced Multiple Sclerosis Functional Quadriplegia HTN Hypothyroidism - IV antibiotics to cover health care acquired organisms - f/u cultures - IVF to keep CVP 8-12 - titrate pressors to maintain MAP >65 - monitor urine output, creatinine - monitor lytes - monitor CBC, coags, fibrinogen level - continue volume assist control - spontaneous breathing trials when hemodynamically stable - DVT/GI prophylaxis - ICU monitoring critical care time spent in reviewing chart, evaluating patient and formulating plan 35 min
--- NOTE | 2018-10-12 14:04 | CONSULT ---
Consultation: REQUESTING PROVIDER: CONSULT REQUEST: We have been asked to medically evaluate this patient for ( specify). 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 Around 7 a.m. this morning patient's mother and aide came to patient's room and noticed that patient was opening her eyes but not speaking. This episode last for about 5 minutes and then patient stated she felt nauseous. Patient's aide measured patient's blood pressure and noticed it was an SBP in the 60's prompting patient's mother to call 911. Mother also noticed that patient had increased secretions in her mouth this morning even though she believe the night nurse was regularly suctioning the patient. At presentation to the ED patient was hypoxic, hypotensive and showing decreased mentation from baseline ED course was notable for the followin. WBC 20.1 2. Cr 1.4 3. Platelets 87 4. K+ 6.3 REVIEW OF SYSTEMS: Unable to obtain 2/2 to patient's clinical condition PHYSICAL EXAMINATION Vital Signs - 24 hr 10/12/18 10/12/18 10/12/18 11:10 11:15 11:45 Temperature 97.4 F L 97.4 F L Pulse Rate 72 55 L Pulse Rate [ Apical] Respiratory 16 16 15 Rate Blood Pressure 61/40 L 101/63 Blood Pressure [Right Arm] O2 Sat by Pulse 96 95 Oximetry (%) 10/12/18 10/12/18 12:51 13:17 Temperature Pulse Rate Pulse Rate [ 64 Apical] Respiratory 16 Rate Blood Pressure Blood Pressure 54/31 L [Right Arm] O2 Sat by Pulse 95 100 Oximetry (%) General: Somnolent, withdraws from pain, opens eyes to verbal stimuli HEENT: Tracheostomy in place, insertion site C/D/I CV: S1, S2, RRR Respiratory: decreased bibasilar breath sounds R > L Abdomen: soft, (+) bowel sounds, PEG tube insertion site C/D/I Integumentary: 4 B/L gluteal ulcers, stage IV Laboratory Results - last 24 hr 10/12/18 10/12/18 10/12/18 11:30 11:30 11:30 WBC 20.1 H RBC 2.87 L Hgb 8.9 L Hct 29.2 L MCV 101.6 H MCH 31.0 MCHC 30.5 L RDW 17.3 H Plt Count 87 L D MPV 11.8 H D Absolute Neuts (auto) 18.7 H Neutrophils % 92.6 H D Lymphocytes % 1.8 L D Monocytes % 5.3 Eosinophils % 0.1 D Basophils % 0.2 Nucleated RBC % 0 PT with INR INR PTT (Actin FS) 43.2 H VBG pH POC VBG pCO2 POC VBG pO2 VBG HCO3 VBG O2 Sat (Tim) VBG Base Excess Sodium Potassium Chloride Carbon Dioxide Anion Gap BUN Creatinine Est GFR (CKD-EPI)AfAm Est GFR (CKD-EPI)NonAf Random Glucose Lactic Acid 1.1 Calcium Total Bilirubin AST ALT Alkaline Phosphatase Troponin I Total Protein Albumin 10/12/18 10/12/18 10/12/18 11:30 11:30 11:30 WBC RBC Hgb Hct MCV MCH MCHC RDW Plt Count MPV Absolute Neuts (auto) Neutrophils % Lymphocytes % Monocytes % Eosinophils % Basophils % Nucleated RBC % PT with INR 13.40 H INR 1.13 H PTT (Actin FS) VBG pH 7.19 L* POC VBG pCO2 74.8 H* POC VBG pO2 38.2 VBG HCO3 27.6 VBG O2 Sat (Tim) 59.3 L VBG Base Excess -1.1 Sodium 138 Potassium 6.3 H* Chloride 105 Carbon Dioxide 27 Anion Gap 5 L BUN 86.4 H Creatinine 1.4 H Est GFR (CKD-EPI)AfAm 49.25 Est GFR (CKD-EPI)NonAf 42.49 Random Glucose 80 Lactic Acid Calcium 8.7 Total Bilirubin 0.2 AST 37 ALT 35 Alkaline Phosphatase 234 H Troponin I < 0.02 Total Protein 6.4 Albumin 2.0 L ASSESSMENT/PLAN: 53 year old female with a PMH of spastic MS (30 years), on trach collar with vent at night, 2L home O2, with G-tube, chronic hyponatremia, hypothyroidism, trigeminal neuralgia, recurrent UTI, wheelchair bound who was admitted to the ICU for Septic Shock NEUROLOGIC Resolving lethargy, patient currently A&O x3 CARDIOLOGY # Septic shock: patient hypotensive + hypoxic @ presentation, leukocytosis 20.1 - possible source either urine or PNA - Levophed gtt to MAP >65 - continue aggressive IV hydration to CVP 8-12 # H/o HTN - hold home anti-hypertensives RESPIRATORY # Acute on Chronic Hypoxic and Hypercapneic RF - VBG (10/12): 7.19/74.8/38.2/27.6 - CXR shows R sided atelectasis, R airspace opacities - Continue VAC RENAL #MANNY - Cr 1.4 (previously 0.4 in 09/2018) - likely pre-renal hypovolemic - Renal U/S shows R sided hydronephrosis - Continue IV hydration with Lactated Ringers - Trend Cr GASTROINTESTINAL - GB U/S shows CBD dilitation 9mm (previously 7-8 mm); cholethiasis w/o AGBW thickening - Continue to monitor Alk Phos, LFTs - General surgery/IR consults pending, appreciate recs INFECTIOUS DISEASE - Previous sputum cultures grew Proteus and Pseudomonas susceptible to Meropenem - UA shows 3+ Leukocyte Esterase, 657 Bacteria, 1007 WBC -possibly colonized? - Continue Meropenem, Vancomycin - ID following, appreciate recs HEMATOLOGY #Anemia - Hb stable @ 8.9 - Continue to monitor, transfuse for Hb <7 #Thrombocytopenia - Platelets 87 - 2/2 to sepsis - Daily CBC F/E/N - Initially Hyperkalemic (6.3) - repeat K 5.9 - likely 2/2 to acidosis, daily CMP - Continue IV LR @ 150 cc/hour - Continue enteral feeds LINES - RIJ placed 10/12/18 PROPHYLAXIS - Heparin (5000 mg SQ TID) CODE FULL CODE DISPOSITION Continue ICU monitoring at this time Visit type - Emergency Visit Emergency Visit: Yes ED Registration Date: 10/12/18 Care time: The patient presented to the Emergency Department on the above date and was hospitalized for further evaluation of their emergent condition. - New Patient This patient is new to me today: Yes Date on this admission: 10/12/18 - Critical Care Critical Care patient: Yes Total Critical Care Time (in minutes): 30 Critical Care Statement: The care of this patient involved high complexity decision making to prevent further life threatening deterioration of the patient 's condition and/or to evaluate & treat vital organ system(s) failure or risk of failure. ATTENDING PHYSICIAN STATEMENT I saw and evaluated the patient. I reviewed the resident's note and discussed the case with the resident. I agree with the resident's findings and plan as documented. SUBJECTIVE: OBJECTIVE: ASSESSMENT AND PLAN:
[2018-10-12] MEDS ORDERED: NOREPINEPHRINE BITARTRATE 8,000 MCG in DEXTROSE 5%-WATER - 492 ML IV SCH (14:15)
--- NOTE | 2018-10-12 14:19 | PN ---
Progress Note (short form) - Note Progress Note: ID consult dictated imp/reccd patient well known to our service-53 yo female with functional quadraplegia from MS with trach and perera and recent PEG tube on tube feeds and eats by mouth, perera changed two weeks ago seen by dr jeffries at [facility] last week, decub is clean per mother and aide she was well until this am when she was found to be lethargic in ED she is profoundly hypotensive currently central line is being placed for pressors she is receiving IVF and got vancomycin and meropenem in the ED she is in renal failure with leukocytosis, hyperkalemia she is awake and responsive to her name denies pain septic shock-suspect uti as source for admission to the ICU vásquez culture ivf pressors as needed renal sonogram MANNY- ivf, renal sonogram MS with chronic trach/peg/perera sacral ulcer- local care continue vancomycin and meropenem d/w mother at bedside over 35 minutes spent in the care of this critically ill ICU patient Problem List - Problems (1) Septic shock Code(s): A41.9 - SEPSIS, UNSPECIFIED ORGANISM; R65.21 - SEVERE SEPSIS WITH SEPTIC SHOCK (2) Acute renal insufficiency Code(s): N28.9 - DISORDER OF KIDNEY AND URETER, UNSPECIFIED (3) Functional 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 (4) Sacral decubitus ulcer, stage IV Code(s): L89.154 - PRESSURE ULCER OF SACRAL REGION, STAGE 4
[2018-10-12 14:20] LABS: EPI CELLS >36 /HPF (0-5/HPF); HYALINE CASTS 258 /lpf (0-8); PH,URINE >= 9.0 (5.0-8.0); URINE APPEARANCE TURBID; URINE BACTERIA 3894.2 /hpf (NEGATIVE); URINE BILIRUBIN NEGATIVE (NEGATIVE); URINE COLOR YELLOW; URINE GLUCOSE (UA) 1+ (NEGATIVE); URINE KETONE NEGATIVE (NEGATIVE); URINE LEUK ESTERASE 3+ (NEGATIVE); URINE NITRITE NEGATIVE (NEGATIVE); URINE PROTEIN 4+ (NEGATIVE); URINE WBC 649 /hpf (0-5)
[2018-10-12] MEDS ORDERED: NOREPINEPHRINE BITARTRATE 4 MG/4 ML ML IV ONE (14:26)
--- NOTE | 2018-10-12 14:40 | PDOC ---
Documentation entered by Carol Antoine SCRIBE, acting as scribe for Kar Higuera MD. Kar Higuera MD: This documentation has been prepared by the jaiibeArash Natalie, SCRIBE, under my direction and personally reviewed by me in its entirety. I confirm that the documentation accurately reflects all work, treatment, procedures, and medical decision making performed by me. 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 Past History - Past Medical History Allergies/Adverse Reactions: Allergies Allergy/AdvReac Type Severity Reaction Status Date / Time chloral hydrate Allergy Intermediate Rash Verified 10/12/18 12:02 [Chloral Hydrate] azathioprine [From Imuran] Allergy Rash Verified 10/12/18 12:02 azathioprine sodium Allergy Rash Verified 10/12/18 12:02 [From Imuran] adhesive tape AdvReac Severe sensitivity Verified 10/12/18 12:02 to glue adhesive AdvReac Unknown Verified 10/12/18 12:02 Home Medications: Ambulatory Orders Amlodipine Besylate [Norvasc -] 5 mg PO DAILY 10/12/18 Clonazepam [Klonopin] 0.5 mg PO BID 10/12/18 Hydralazine HCl 50 mg PO TID 10/12/18 Levocetirizine Dihydrochloride 5 mg PO DAILY 10/12/18 Loratadine 10 mg PO DAILY 10/12/18 Metoprolol Tartrate [Lopressor -] 50 mg PO BID 10/12/18 Mirtazapine 7.5 mg PO HS 10/12/18 Pregabalin [Lyrica -] 150 mg PO BID 10/12/18 Sertraline HCl [Zoloft] 100 mg PO DAILY 10/12/18 Sodium Chloride 1,000 mg PO BID 10/12/18 Ursodiol [Actigal] 300 mg PO BID 10/12/18 Anemia: Yes Asthma: No Cancer: No Cardiac Disorders: No CVA: No COPD: No (trach vent dependent at night only and prn oxygen mask) CHF: No DVT: No Dementia: No (M.S,TRIG.NEUROLAGIA) Diabetes: No GI Disorders: Yes Disorders: Yes (baclofen implant) HTN: Yes Hypercholesterolemia: No Liver Disease: No Seizures: Yes Thyroid Disease: No - Surgical History Abdominal Surgery: No Appendectomy: Yes (FEEDING TUBE) Cardiac Surgery: No Cholecystectomy: No GI Surgery: (BACLOFEN IMPLANT) Lung Surgery: Yes (TRACH) Neurologic Surgery: No Orthopedic Surgery: No - Immunization History Immunization Up to Date: Yes - Suicide/Smoking/Psychosocial Hx Smoking Status: No Smoking History: Current every day smoker Have you smoked in the past 12 months: No Number of Cigarettes Smoked Daily: 0 Cigars Per Day: 0 Hx Alcohol Use: No Drug/Substance Use Hx: No Substance Use Type: None Hx Substance Use Treatment: No Review of Systems - Review of Systems Able to Perform ROS?: No Comments:: 10/12/18 11:34 ROS unable to obtain due to patient's clinical condition. *Physical Exam - Vital Signs Last Vital Signs Temp Pulse Resp BP Pulse Ox 97.4 F L 64 16 54/31 L 100 10/12/18 11:15 10/12/18 13:17 10/12/18 13:17 10/12/18 13:17 10/12/18 13:17 - Physical Exam Comments: patient seen and evaluated immediately upon arrival; this physical exam is being recorded prior to admission to the ICU. Normocephalic, atraumatic, patient is somnolent but opens her eyes to verbal stimuli and appears to blink in response; PERRLA, conjunctiva pink mm-dry No JVD, tracheostomy in place Decreased breath sounds at the right base RRR Abdomen is soft, nontender, feeding tube is noted Minimal bilateral lower extremity edema Stage IV left gluteal ulcers noted; right labial tear is noted (is known to be old) No petechia Patient opens eyes to verbal stimuli. she is a quadriplegic ED Treatment Course - LABORATORY CBC & Chemistry Diagram: 10/12/18 11:30 10/12/18 11:30 - ADDITIONAL ORDERS Additional order review: Laboratory Results 10/12/18 10/12/18 10/12/18 11:30 11:30 11:30 PT with INR 13.40 H INR 1.13 H PTT (Actin FS) VBG pH 7.19 L* POC VBG pCO2 74.8 H* POC VBG pO2 38.2 VBG HCO3 27.6 VBG O2 Sat (Tim) 59.3 L VBG Base Excess -1.1 Sodium Potassium Chloride Carbon Dioxide Anion Gap BUN Creatinine Est GFR (CKD-EPI)AfAm Est GFR (CKD-EPI)NonAf Random Glucose Lactic Acid Calcium Total Bilirubin AST ALT Alkaline Phosphatase Troponin I Total Protein Albumin Urine Color Yellow Urine Appearance Turbid Urine pH >= 9.0 H D Ur Specific [place] 1.018 Urine Protein 4+ H Urine Glucose (UA) 1+ H Urine Ketones Negative Urine Blood Negative Urine Nitrite Negative Urine Bilirubin Negative Urine Urobilinogen 1.0 Ur Leukocyte Esterase 3+ H Urine WBC (Auto) 649 Urine Casts (Auto) 258 U Epithel Cells (Auto) >36 Urine Bacteria (Auto) 3894.2 10/12/18 10/12/18 10/12/18 11:30 11:30 11:30 PT with INR INR PTT (Actin FS) 43.2 H VBG pH POC VBG pCO2 POC VBG pO2 VBG HCO3 VBG O2 Sat (Tim) VBG Base Excess Sodium 138 Potassium 6.3 H* Chloride 105 Carbon Dioxide 27 Anion Gap 5 L BUN 86.4 H Creatinine 1.4 H Est GFR (CKD-EPI)AfAm 49.25 Est GFR (CKD-EPI)NonAf 42.49 Random Glucose 80 Lactic Acid 1.1 Calcium 8.7 Total Bilirubin 0.2 AST 37 ALT 35 Alkaline Phosphatase 234 H Troponin I < 0.02 Total Protein 6.4 Albumin 2.0 L Urine Color Urine Appearance Urine pH Ur Specific [place] Urine Protein Urine Glucose (UA) Urine Ketones Urine Blood Urine Nitrite Urine Bilirubin Urine Urobilinogen Ur Leukocyte Esterase Urine WBC (Auto) Urine Casts (Auto) U Epithel Cells (Auto) Urine Bacteria (Auto) 10/12/18 11:30 RBC 2.87 L MCV 101.6 H MCHC 30.5 L RDW 17.3 H MPV 11.8 H D Neutrophils % 92.6 H D Lymphocytes % 1.8 L D Monocytes % 5.3 Eosinophils % 0.1 D Basophils % 0.2 - RADIOLOGY Radiology Studies Ordered: Category Date Time Status CHEST X-RAY PORTABLE* [RAD] Stat Radiology 10/12/18 11:20 Completed - Medications Given in the ED: ED Medications Discontinued Medications Generic Name Dose Route Start Last Admin Trade Name Carmen PRN Reason Stop Dose Admin Sodium Chloride 1,000 mls @ 1,000 mls/hr 10/12/18 11:21 10/12/18 11:35 Normal Saline - IV 10/12/18 12:20 1,000 mls/hr ASDIR STA Administration Meropenem 1 gm/ Dextrose 100 mls @ 200 mls/hr 10/12/18 11:35 10/12/18 11:52 IVPB 10/12/18 12:04 200 mls/hr ONCE ONE Administration Medical Decision Making - Medical Decision Making 10/12/18 16:16 Patient is a 53-year-old female with spastic and mass, with resultant quadriplegia, trached and intermittently vent dependent presents with hypoxemia , decreased mentation and significant hypotension. Patient was in her baseline state of health 12 hours prior to arrival. On arrival, patient aggressively suctioned and placed on a ventilator with resolution of hypoxemia. Blood and urine cultures obtained. Aggressive fluid resuscitation initiated. CBC reveals significant leukocytosis with baseline anemia. CMP revealed significantly elevated BUN and creatinine consistent with a GI. Broad-spectrum antibiotics for hospital-acquired pneumonia and UTI administered. Right internal jugular venous catheter placed for initiation of pressor support. Patient's screen and admitted to the ICU. *DC/Admit/Observation/Transfer Diagnosis at time of Disposition: Acute renal insufficiency, Hyperkalemia Pneumonia Qualifiers: Pneumonia type: due to unspecified organism Laterality: right Lung location: lower lobe of lung Qualified Code(s): J18.1 - Lobar pneumonia, unspecified organism - Discharge Dispostion Condition at time of disposition: Critical Decision to Admit order: Yes - Referrals - Patient Instructions - Post Discharge Activity
[2018-10-12 14:53] LABS: URINE RBC 3 /hpf (0-4)
[2018-10-12 14:55] LABS: URINE CRYSTALS TRIPLE PHOSPHATE=2+ /hpf; YEAST NONE SEEN (NEGATIVE)
[2018-10-12 15:37] LABS: ANISOCYTOSIS 1+; MACROCYTOSIS 1+; PLATELET ESTIMATE DECREASED
[2018-10-12] MEDS: LACTATED RINGERS SOLUTION 1,000 ML/1,000 ML INFUS.BAG IV SCH (16:37)
[2018-10-12] MEDS ORDERED: CALCIUM GLUCONATE 10% - 1,000 MG/10 ML VIAL IVPB ONE (16:45)
[2018-10-12] MEDS ORDERED: HYDROCORTISONE SOD SUCCINATE 100 MG/2 ML VIAL IVPB ONE (16:46)
--- NOTE | 2018-10-12 17:03 | HP ---
Admitting History and Physical - Primary Care Physician PCP: Anne Lopez - Admission Chief Complaint: AMS, Hypotension, Hypoxia History of Present Illness: Patient is a 53 y/o female with past medical history of MS on trach collar mechanically ventilated, chronic hyponatremia, hypothyroidism, trigeminal neuralgia, chronic UTIs. Patient presented to ER via EMS after change in mental status. Mother states she noted patient to be more lethargic and less responsive than usual this morning. While doing morning care on her they noted that she became unresponsive and EMS was called. 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 No: Asthma, Bronchitis , Cancer, COPD, Pulmonary Embolus, Pulmonary Fibrosis, Sleep Apnea Gastrointestinal: Yes: Constipation (chronic) Hepatobiliary: Yes: Cholelithiasis Renal/: Yes: Neurogenic Bladder ( neurogenic bladder, chronic perera catheter) ...LMP: 06/07/12 Heme/Onc: Yes: Anemia Infectious Disease: Yes: Other (pneumonia, uti treated by urologist) Musculoskeletal: Yes: Other (Quadraplegia) Dermatology: Yes: Other (chronic decubitus followed by wound care) - Past Surgical History Past Surgical History: Yes: Colonoscopy - Smoking History Smoking history: Current every day smoker Have you smoked in the past 12 months: No Aproximately how many cigarettes per day: 0 - Alcohol/Substance Use Hx Alcohol Use: No History of Substance Use: reports: None - Social History ADL: Support Services History of Recent Travel: No Home Medications - Allergies Allergies/Adverse Reactions: Allergies Allergy/AdvReac Type Severity Reaction Status Date / Time chloral hydrate Allergy Intermediate Rash Verified 10/12/18 12:02 [Chloral Hydrate] azathioprine [From Imuran] Allergy Rash Verified 10/12/18 12:02 azathioprine sodium Allergy Rash Verified 10/12/18 12:02 [From Imuran] adhesive tape AdvReac Severe sensitivity Verified 10/12/18 12:02 to glue adhesive AdvReac Unknown Verified 10/12/18 12:02 - Home Medications Home Medications: Ambulatory Orders Clonazepam [Klonopin] 0.5 mg PO BID 10/12/18 Loratadine 10 mg PO DAILY 10/12/18 Mirtazapine 7.5 mg PO HS 10/12/18 Pregabalin [Lyrica -] 150 mg PO BID 10/12/18 Sertraline HCl [Zoloft] 100 mg PO DAILY 10/12/18 Ursodiol [Actigal -] 300 mg PO BID 10/12/18 Amino Acids/Protein Hydrolys [Prosource No Carb Liquid Pkt] 30 ml PO BID@0800, 1730 packet 10/25/18 Docusate Liquid [Colace Liquid -] 100 mg PO DAILY PRN ud 10/25/18 Nystatin Ointment [Mycostatin Ointment -] 1 applic TP BID #60 gr 10/25/18 Pregabalin [Lyrica -] 150 mg PO TID #90 capsule MDD 3 10/25/18 Family Disease History - Family Disease History Family Disease History: Diabetes: Sister, Other: Father (GB surgery), Mother Review of Systems - Review of Systems Constitutional: reports: Weakness Eyes: reports: No Symptoms HENT: reports: No Symptoms Neck: reports: No Symptoms Cardiovascular: reports: No Symptoms Respiratory: reports: No Symptoms Gastrointestinal: reports: Nausea Genitourinary: reports: No Symptoms Breasts: reports: No Symptoms Reported Musculoskeletal: reports: No Symptoms Integumentary: reports: No Symptoms Neurological: reports: No Symptoms Endocrine: reports: No Symptoms Hematology/Lymphatic: reports: No Symptoms Psychiatric: reports: No Symptoms Physical Examination Vital Signs: Vital Signs Temperature 97.4 F L 10/12/18 11:15 Pulse Rate 66 10/12/18 17:02 Respiratory Rate 14 10/12/18 17:02 Blood Pressure 70/36 L 10/12/18 17:02 O2 Sat by Pulse Oximetry (%) 100 10/12/18 17:02 Constitutional: Yes: No Distress, Calm Eyes: Yes: Conjunctiva Clear HENT: Yes: Atraumatic Neck: Yes: Other (trache) Cardiovascular: Yes: Regular Rate and Rhythm Respiratory: Yes: Regular, Diminished, Mechanically Ventilated Gastrointestinal: Yes: Normal Bowel Sounds, Soft Renal/: Yes: Perera Present, Hematuria Musculoskeletal: Yes: Muscle Weakness Extremities: Yes: WNL Edema: No Neurological: Yes: Alert, Pre-Existing Deficit Psychiatric: Yes: Alert, Oriented Labs: CBC, BMP 10/12/18 11:30 10/12/18 11:30 Imaging - Results Chest X-ray: Report Reviewed Ultrasound: Report Reviewed Problem List - Problems (1) Acute renal insufficiency Assessment/Plan: -BUN/Cr 80.2/1.5 -Renal consult -Renal US -US shows right kidney with mild to moderate hydronephrosis and without gross evidence of stones Code(s): N28.9 - DISORDER OF KIDNEY AND URETER, UNSPECIFIED (2) Pneumonia Assessment/Plan: -ID on board -Leukocytosis WBC 20 -afebrile -Vancomycin and Merropenem given in ER -CXR shows RLL zone airspace opacities, atelectasis changes without blunting of the right costophrenic angles -Pulm on board -keep SpO2 >90% -BC and Urine Legionella pending Code(s): J18.9 - PNEUMONIA, UNSPECIFIED ORGANISM Qualifiers: Pneumonia type: due to unspecified organism Laterality: right Lung location: lower lobe of lung Qualified Code(s): J18.1 - Lobar pneumonia, unspecified organism (3) Acute on chronic respiratory failure with hypoxia and hypercapnia Assessment/Plan: -Pulm consult -mechanically ventilated -keep SpO2 >90% -CXR shows RLL zone airspace opacities, atelectasis changes without blunting of the right costophrenic angles Code(s): J96.21 - ACUTE AND CHRONIC RESPIRATORY FAILURE WITH HYPOXIA; J96.22 - ACUTE AND CHRONIC RESPIRATORY FAILURE WITH HYPERCAPNIA (4) Anemia Assessment/Plan: -Hg 8.9 -monitor Hg daily -transfuse for Hg <8.0 Code(s): D64.9 - ANEMIA, UNSPECIFIED (5) Functional quadriplegia Assessment/Plan: -PT -fall precautions Code(s): R53.2 - FUNCTIONAL QUADRIPLEGIA (6) Hx of multiple sclerosis Assessment/Plan: -fall precaution -PT -turn q2h and offloading Code(s): Z86.69 - PERSONAL HISTORY OF DIS OF THE NERVOUS SYS AND SENSE ORGANS (7) Hypothyroid Assessment/Plan: -Levothyroxine Code(s): E03.9 - HYPOTHYROIDISM, UNSPECIFIED (8) Sepsis Assessment/Plan: -ID on board -Leukocytosis WBC 20 -afebrile -Vancomycin and Merropenem given in ER -CXR shows RLL zone airspace opacities, atelectasis changes without blunting of the right costophrenic angles -Pulm on board -keep SpO2 >90% -BC and Urine Legionella pending -UA 3+ leuks, 3+ blood, 3+ protein -UC pending Code(s): A41.9 - SEPSIS, UNSPECIFIED ORGANISM Qualifiers: Sepsis type: sepsis due to unspecified organism Qualified Code(s): A41.9 - Sepsis, unspecified organism (9) Hypotension Assessment/Plan: -hold home BP meds -Levophed drip Code(s): I95.9 - HYPOTENSION, UNSPECIFIED (10) Gallstones Assessment/Plan: -US shows hepatomegaly, gallstones without wall thickening, trace of pericholecystic free fluid, dilated CBD 9mm -Surgical and GI consult Code(s): K80.20 - CALCULUS OF GALLBLADDER W/O CHOLECYSTITIS W/O OBSTRUCTION (11) Altered mental status Assessment/Plan: -resolving-a&ox3 on exam -2/2 sepsis Code(s): R41.82 - ALTERED MENTAL STATUS, UNSPECIFIED Assessment/Plan see problem list dvt ppx
[2018-10-12] MEDS ORDERED: HYDROCORTISONE SOD SUCCINATE 2 ML ONE (17:10)
[2018-10-12] MEDS ORDERED: CALCIUM GLUCONATE 10% - 1,000 MG/10 ML VIAL ONE (17:10)
[2018-10-12 17:44] LABS: EPI CELLS 14.7 /HPF (0-5/HPF); HYALINE CASTS 102 /lpf (0-8); PH,URINE 8.5 (5.0-8.0); URINE APPEARANCE TURBID; URINE BACTERIA 657.2 /hpf (NEGATIVE); URINE BILIRUBIN NEGATIVE (NEGATIVE); URINE COLOR RED; URINE GLUCOSE (UA) NEGATIVE (NEGATIVE); URINE KETONE NEGATIVE (NEGATIVE); URINE LEUK ESTERASE 3+ (NEGATIVE); URINE NITRITE NEGATIVE (NEGATIVE); URINE PROTEIN 3+ (NEGATIVE); URINE RBC 598 /hpf (0-4); URINE UROBILINOGEN 0.2 mg/dL (0.2-1.0); URINE WBC 1001 /hpf (0-5)
--- NOTE | 2018-10-12 17:57 | CONS ---
DATE OF CONSULTATION: DATE OF DICTATION: 10/12/2018 INFECTIOUS DISEASE CONSULTATION HISTORY OF PRESENT ILLNESS: This is a 53-year-old woman who is well known to our service from prior admissions. She was most recently hospitalized in September. She has a history of MS. She has functional quadriplegia. She lives at home with her mother. She has aids there. She has a trach and is on a ventilator. She has as well fairly recently placed G-tube and is on tube feeds, although she eats as well, and she has a chronic Perera catheter. The Perera catheter for the mother was changed about 2 weeks ago. She is seen by Dr. Miranda who saw her at home last week, and her decubitus is stable. She apparently per the mother and the aid, she was in her usual state of health yesterday, and this morning she was noted to be lethargic and nonresponsive. They brought her to the emergency room where she was noted to be profoundly hypotensive with an elevated white count, elevated BUN and creatinine and potassium. She was fluid resuscitated, cultures were sent. She was started on vancomycin and meropenem. I am asked to see her for further evaluation. Patient is just having a central line placed. She is alert and responds to her name. She denies any pain. PAST MEDICAL HISTORY: Notable for multiple sclerosis. She is bedbound. History of trigeminal neuralgia and neurogenic bladder. Hypertension, hyperlipidemia, hypothyroidism. She has a history of hyponatremia. She has had multiple admissions for hyponatremia, UTI, and aspiration pneumonia. As well she has surgical history notable for trach and PEG as well she has a baclofen pump. She is allergic to CHLOROHYDRATE, AZATHIOPRINE, and ADHESIVE TAPE. MEDICATIONS AT HOME: Include Actigall, Zoloft, Lyrica, mirtazapine, Lopressor, loratadine, hydralazine, Klonopin, and Norvasc. 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 She resides at home with 24-hour healthcare and with her mother. REVIEW OF SYSTEMS: Per the family is as per HPI. PHYSICAL EXAMINATION: VITAL SIGNS: Temperature 97.4, pulse 66, blood pressure 47/34, respiratory rate 14, FiO2 of 70%. HEENT: Normocephalic. Eyes are anicteric. She has a trach. NECK: Supple. LUNGS: Diminished breath sounds at the bases. HEART: Regular rate and rhythm. ABDOMEN: Soft. Her G-tube site is clean. I could not turn her. She has a Perera, minimal urine output. EXTREMITIES: Without edema. Her feet are actually warm. LABORATORY: White count is 20, hemoglobin 8.9, platelet count are 87,000. Her BUN and creatinine are 86 and 1.4 with a potassium of 6.3. LFTs are noted for alkaline phosphatase of 234, urinalysis has 649 white cells. Urine and blood cultures are pending. She received meropenem and vancomycin in the emergency room. cxray LLL infiltrate unchanged from prior xray IMPRESSION: septic shock- most likely secondary to UTI- respiratory staus and cxray appear at baseline At this point I would continue the meropenem and obtain a random vancomycin level in the morning. I would agree with intensive care unit admission and aggressive hydration with intravenous pressors as needed. Would obtain a renal ultrasound as well to evaluate her renal failure. I discussed her care with her mother at the bedside, over 35 minutes was spent in the care of this critically ill intensive care unit patient. MANNY- secondary to sepsis and dehydration MS with trach/peg and perera- requires total asist history of prior pneumonia/uti sacral pressure ulcer- continue local wound care HANNA VAZ M.D. BERNARDINO/[id number] MTDD
[2018-10-12] MEDS: NOREPINEPHRINE BITARTRATE 8,000 MCG in DEXTROSE 5%-WATER - 492 ML IV SCH (18:45)
[2018-10-12] MEDS ORDERED: ACETAMINOPHEN 1000 MG/100 ML VIAL (NON FORMULARY) IVPB ONE (19:31)
[2018-10-12 20:24] LABS: BILIRUBIN,TOTAL 0.3 mg/dL (0.2-1); BLOOD UREA NITROGEN 80.2 mg/dL (7-18); CALCIUM 8.2 mg/dL (8.5-10.1); CREATININE 1.5 mg/dL (0.55-1.3); POTASSIUM 5.9 mmol/L (3.5-5.1); TOT PROT 6.6 g/dl (6.4-8.2)
[2018-10-12] MEDS ORDERED: DEXTROSE 5%-WATER 100 ML IVPB ONE (20:32)
[2018-10-12] MEDS: MEROPENEM 1 GM in DEXTROSE 5%-WATER 100 ML IVPB SCH (21:01)
[2018-10-12] MEDS ORDERED: PATIENT'S OWN MEDICATION (NON-FORMULARY) (Pregabalin [Lyrica -] 150 MG) PO SCH (22:00)
[2018-10-12] MEDS ORDERED: PREGABALIN 50 MG CAPSULE ONE (22:00)
[2018-10-12] MEDS ORDERED: PREGABALIN 100 MG CAPSULE ONE (22:01)
[2018-10-12] MEDS: URSODIOL 300 MG CAPSULE PO SCH (22:34)
[2018-10-12] MEDS: CHLORHEXIDINE GLUCONATE 4% CLEANSER FOR DECOLONIZATION TP SCH (22:35)
[2018-10-12] MEDS: MIRTAZAPINE 15 MG TABLET (FP) PO SCH (22:35)
[2018-10-12] MEDS: PREGABALIN 100 MG, PREGABALIN 50 MG PO SCH (22:35)
[2018-10-12] MEDS: HEPARIN NA (PORCINE) 5,000 UNITS/ML 1ML VIAL SQ SCH (22:35)
[2018-10-12] MEDS: MUPIROCIN 2% TOPICAL OINTMENT FOR DECOLONIZATION NS SCH (22:35)
[2018-10-12] MEDS ORDERED: VASOPRESSIN 20 UNITS/ML VIAL IV ONE (23:15)
[2018-10-12] MEDS: VASOPRESSIN 50 UNITS in SODIUM CHLORIDE 97.5 ML IVPB SCH (23:23)
[2018-10-13] MEDS ORDERED: MEROPENEM 1 GM VIAL (RESTRICTED TO ID) IVPB ONE ×3 (03:08→20:14)
[2018-10-13] MEDS ORDERED: DEXTROSE 5%-WATER 100 ML IVPB ONE ×3 (03:09→20:14)
[2018-10-13] MEDS: MEROPENEM 1 GM in DEXTROSE 5%-WATER 100 ML IVPB SCH ×3 (03:17→20:38)
[2018-10-13] MEDS ORDERED: SODIUM CHLORIDE IVPB ONE (05:02)
[2018-10-13] MEDS ORDERED: GENTAMICIN IVPB ONE (05:02)
[2018-10-13] MEDS: NOREPINEPHRINE BITARTRATE 8,000 MCG in DEXTROSE 5%-WATER - 492 ML IV SCH ×3 (05:45→19:32)
[2018-10-13] MEDS: LACTATED RINGERS SOLUTION 1,000 ML/1,000 ML INFUS.BAG IV SCH ×3 (05:47→16:30)
[2018-10-13 06:15] LABS: BASO % 0.1 % (0-2.0); EOS % 0.2 % (0-4.5); HEMATOCRIT 27.4 % (32.4-45.2); LYMPH % 1.2 % (8-40); MCH 31.8 pg (25.7-33.7); MCHC 32.7 g/dl (32.0-36.0); MEAN CELL VOLUME 97.5 fl (80-96); MEAN PLT VOLUME 11.3 fl (7.5-11.1); MONO % 4.1 % (3.8-10.2); NEUT % 94.4 % (42.8-82.8); PLATELET COUNT 107 K/MM3 (134-434); RBC 2.81 M/mm3 (3.60-5.2); RDW 17.4 % (11.6-15.6)
[2018-10-13 06:30] LABS: WHITE BLOOD COUNT 31.8 K/mm3 (4.0-10.0)
[2018-10-13 06:55] LABS: BILIRUBIN,TOTAL 0.4 mg/dL (0.2-1); BLOOD UREA NITROGEN 73.6 mg/dL (7-18); CALCIUM 8.2 mg/dL (8.5-10.1); CREATININE 1.3 mg/dL (0.55-1.3); MAGNESIUM 2.2 mg/dL (1.8-2.4); PHOSPHOROUS 3.8 mg/dL (2.5-4.9); POTASSIUM 5.1 mmol/L (3.5-5.1); TOT PROT 6.7 g/dl (6.4-8.2)
[2018-10-13 07:04] LABS: ARTERIAL BLD GAS O2 SATURATION 98.5 % (95-98); ARTERIAL BLOOD GAS BASE EXCESS -2.8 meq/l (-2-2); ARTERIAL BLOOD GAS PCO2 47.4 mmHg (35-45); ARTERIAL BLOOD GAS PO2 112 mmHg (80-105); ARTERIAL BLOOD GAS pH 7.31 (7.35-7.45)
[2018-10-13 07:07] LABS: ALLENS TEST POSITIVE
[2018-10-13] MEDS ORDERED: PREGABALIN 50 MG CAPSULE ONE ×2 (08:38→21:58)
[2018-10-13] MEDS ORDERED: PREGABALIN 100 MG CAPSULE ONE ×2 (08:38→21:59)
[2018-10-13] MEDS ORDERED: PT OWN MED DRAWER 7, Y5N ONE ×6 (08:39→22:00)
--- NOTE | 2018-10-13 08:45 | PN ---
Progress Note, Physician Chief Complaint: ASLEEP EVENTS AND NOTES REVIEWED MECHANICALLY VENTILATED VIA TRACHCOLLAR - Current Medication List Current Medications: Active Medications Chlorhexidine Gluconate (Hibiclens For Decolonization -) 1 applic TP HS [facility] Last Admin: 10/12/18 22:35 Dose: 1 applic Heparin Sodium (Porcine) (Heparin -) 5,000 unit SQ BID CATHERINE Last Admin: 10/12/18 22:35 Dose: 5,000 unit Meropenem 1 gm/ Dextrose 100 mls @ 200 mls/hr IVPB Q8H CATHERINE Last Admin: 10/13/18 03:17 Dose: 200 mls/hr Lactated Ringer's (Lactated Ringers Solution) 1,000 ml in 1,000 mls @ 150 mls/ hr IV ASDIR [facility] Last Admin: 10/13/18 05:47 Dose: 150 mls/hr Norepinephrine Bitartrate 8, (000 mcg/ Dextrose) 500 mls @ 37.5 mls/hr IV TITR [facility]; Protocol Last Admin: 10/13/18 05:45 Dose: 16 mcg/min, 60 mls/hr Vasopressin 50 units/ Sodium (Chloride) 100 mls @ 4 mls/hr IVPB ASDIR [facility]; Protocol Last Titration: 10/13/18 02:00 Dose: 6 units/hr, 12 mls/hr Loratadine (Claritin -) 10 mg PO DAILY [facility] Mirtazapine (Remeron -) 7.5 mg PO HS [facility] Last Admin: 10/12/18 22:35 Dose: 7.5 mg Mupirocin (Bactroban Ointment (For Decolonization) -) 1 applic NS BID [facility] Stop: 10/17/18 21:59 Last Admin: 10/12/18 22:35 Dose: 1 applic Pregabalin 100 mg/ Pregabalin (50 mg) 150 mg PO BID [facility] Last Admin: 10/12/18 22:35 Dose: 150 mg Sertraline HCl (Zoloft -) 100 mg PO DAILY [facility] Ursodiol (Actigal -) 300 mg PO BID [facility] Last Admin: 10/12/18 22:34 Dose: 300 mg - Objective Vital Signs: Vital Signs Temperature 98.0 F 10/13/18 08:00 Pulse Rate 65 10/13/18 08:00 Respiratory Rate 15 10/13/18 08:00 Blood Pressure 124/47 L 10/13/18 08:00 O2 Sat by Pulse Oximetry (%) 50 L 10/13/18 07:00 Constitutional: Yes: Mild Distress Cardiovascular: Yes: Regular Rate and Rhythm Respiratory: Yes: Diminished, Mechanically Ventilated Gastrointestinal: Yes: Soft Genitourinary: Yes: Raza Present Musculoskeletal: Yes: Muscle Weakness Edema: Yes Integumentary: Yes: Venous Stasis Changes, Other Neurological: Yes: Pre-Existing Deficit, Weakness Labs: CBC, BMP 10/13/18 05:35 10/13/18 05:35 INR, PTT INR 1.13 (0.83-1.09) H 10/12/18 11:30 Problem List - Problems (1) Acute renal insufficiency Code(s): N28.9 - DISORDER OF KIDNEY AND URETER, UNSPECIFIED (2) Hyperkalemia Code(s): E87.5 - HYPERKALEMIA (3) Hypotension Code(s): I95.9 - HYPOTENSION, UNSPECIFIED (4) Pneumonia Code(s): J18.9 - PNEUMONIA, UNSPECIFIED ORGANISM Qualifiers: Pneumonia type: due to unspecified organism Laterality: right Lung location: lower lobe of lung Qualified Code(s): J18.1 - Lobar pneumonia, unspecified organism (5) Abnormal LFTs Code(s): R94.5 - ABNORMAL RESULTS OF LIVER FUNCTION STUDIES (6) Acute on chronic respiratory failure with hypoxia and hypercapnia Code(s): J96.21 - ACUTE AND CHRONIC RESPIRATORY FAILURE WITH HYPOXIA; J96.22 - ACUTE AND CHRONIC RESPIRATORY FAILURE WITH HYPERCAPNIA (7) Adrenal insufficiency Code(s): E27.40 - UNSPECIFIED ADRENOCORTICAL INSUFFICIENCY (8) Functional quadriplegia Code(s): R53.2 - FUNCTIONAL QUADRIPLEGIA (9) Functional 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 Assessment/Plan IV ABX PER ID AWAIT CULTURES ADVANCED DIRECTIVES NEED TO BE REVIEWED DVT PROPHYLAXIS PT EVAL
[2018-10-13] MEDS: VASOPRESSIN 50 UNITS in SODIUM CHLORIDE 97.5 ML IVPB SCH ×2 (08:51→16:41)
[2018-10-13] MEDS: MUPIROCIN 2% TOPICAL OINTMENT FOR DECOLONIZATION NS SCH ×2 (09:01→22:25)
[2018-10-13] MEDS: LORATADINE 10 MG TABLET PO SCH (09:02)
[2018-10-13] MEDS: HEPARIN NA (PORCINE) 5,000 UNITS/ML 1ML VIAL SQ SCH ×2 (09:02→22:10)
[2018-10-13] MEDS: PREGABALIN 100 MG, PREGABALIN 50 MG PO SCH ×2 (09:02→22:08)
[2018-10-13] MEDS: SERTRALINE HCL 50 MG TABLET (FP) PO SCH (09:03)
[2018-10-13] MEDS ORDERED: LEVOCETIRIZINE DIHYDROCHLORIDE PO SCH (10:00)
[2018-10-13] MEDS: URSODIOL 300 MG CAPSULE PO SCH ×2 (10:35→22:12)
[2018-10-13 10:55] LABS: ANISOCYTOSIS 1+; MACROCYTOSIS 1+; PLATELET ESTIMATE DECREASED
--- NOTE | 2018-10-13 11:14 | PN ---
Physical Exam: SUBJECTIVE: Patient seen and examined at the bedside. Complained of back pain at the site of her ulcer. Stated her breathing is better. Denied cp, sob, abd pain, n/v, numbness, tingling, headaches, dizziness. States she feels better today and feels more alert and less weak. OBJECTIVE: Vital Signs Period Temp Pulse Resp BP Sys/Morillo Pulse Ox Last 24 Hr 97.4 F-98.0 F 46-75 14-20 47-149/28-79 50-100 GENERAL: The patient is awake, alert, and fully oriented, in no acute distress. HEAD: Normal with no signs of trauma. EYES: PERRL, extraocular movements intact, sclera anicteric, conjunctiva clear ENT: oropharynx clear without exudates, moist mucous membranes NECK: trach collar in place. LUNGS: Breath sounds equal, clear to auscultation bilaterally, decreased at the bases, no wheezes, no crackles, no accessory muscle use. HEART: Regular rate and rhythm, S1, S2 without murmur or rub. ABDOMEN: Soft, nontender, nondistended, normoactive bowel sounds, no guarding, no rebound, no masses. EXTREMITIES: 1+ pulses, warm, well-perfused, no edema. NEUROLOGICAL: Cranial nerves II through XII grossly intact. Hoarse speech, quadriplegia. PSYCH: Normal mood, normal affect. SKIN: Gluteal stage 4 ulcers Laboratory Results - last 24 hr 10/12/18 10/12/18 10/12/18 11:30 11:30 11:30 WBC 20.1 H RBC 2.87 L Hgb 8.9 L Hct 29.2 L MCV 101.6 H MCH 31.0 MCHC 30.5 L RDW 17.3 H Plt Count 87 L D MPV 11.8 H D Absolute Neuts (auto) 18.7 H Neutrophils % 92.6 H D Neutrophils % (Manual) 92.9 H Band Neutrophils % 0.0 Lymphocytes % 1.8 L D Lymphocytes % (Manual) 7.1 L D Monocytes % 5.3 Monocytes % (Manual) 0 L D Eosinophils % 0.1 D Eosinophils % (Manual) 0.0 D Basophils % 0.2 Basophils % (Manual) 0.0 Myelocytes % (Man) 0 Promyelocytes % (Man) 0 Blast Cells % (Manual) 0 Nucleated RBC % 0 Metamyelocytes 0 D Hypochromia 0 Platelet Estimate Decreased Platelet Comment Present Polychromasia 0 Poikilocytosis 0 Anisocytosis 1+ Microcytosis 0 Macrocytosis 1+ PT with INR INR PTT (Actin FS) 43.2 H Puncture Site ABG pH ABG pCO2 at Pt Temp ABG pO2 at Pt Temp ABG HCO3 ABG O2 Sat (Measured) ABG O2 Content ABG Base Excess Howard Test VBG pH POC VBG pCO2 POC VBG pO2 VBG HCO3 VBG O2 Sat (Tim) VBG Base Excess O2 Delivery Device Oxygen Flow Rate Vent Mode Vent Rate Mechanical Rate PEEP Pressure Support Vent Sodium Potassium Chloride Carbon Dioxide Anion Gap BUN Creatinine Est GFR (CKD-EPI)AfAm Est GFR (CKD-EPI)NonAf POC Glucometer Random Glucose Lactic Acid 1.1 Calcium Phosphorus Magnesium Total Bilirubin AST ALT Alkaline Phosphatase Troponin I Total Protein Albumin TSH Free T4 Urine Color Urine Appearance Urine pH Ur Specific [place] Urine Protein Urine Glucose (UA) Urine Ketones Urine Blood Urine Nitrite Urine Bilirubin Urine Urobilinogen Ur Leukocyte Esterase Urine WBC (Auto) Urine RBC (Auto) Urine Casts (Auto) U Pathogenic Cast Auto U Epithel Cells (Auto) U Sm Round Cell (Auto) Urine Crystals (Auto) Urine Bacteria (Auto) Urine Yeast (Auto) Random Vancomycin 10/12/18 10/12/18 10/12/18 11:30 11:30 11:30 WBC RBC Hgb Hct MCV MCH MCHC RDW Plt Count MPV Absolute Neuts (auto) Neutrophils % Neutrophils % (Manual) Band Neutrophils % Lymphocytes % Lymphocytes % (Manual) Monocytes % Monocytes % (Manual) Eosinophils % Eosinophils % (Manual) Basophils % Basophils % (Manual) Myelocytes % (Man) Promyelocytes % (Man) Blast Cells % (Manual) Nucleated RBC % Metamyelocytes Hypochromia Platelet Estimate Platelet Comment Polychromasia Poikilocytosis Anisocytosis Microcytosis Macrocytosis PT with INR 13.40 H INR 1.13 H PTT (Actin FS) Puncture Site ABG pH ABG pCO2 at Pt Temp ABG pO2 at Pt Temp ABG HCO3 ABG O2 Sat (Measured) ABG O2 Content ABG Base Excess Howard Test VBG pH POC VBG pCO2 POC VBG pO2 VBG HCO3 VBG O2 Sat (Tim) VBG Base Excess O2 Delivery Device Oxygen Flow Rate Vent Mode Vent Rate Mechanical Rate PEEP Pressure Support Vent Sodium 138 Potassium 6.3 H* Chloride 105 Carbon Dioxide 27 Anion Gap 5 L BUN 86.4 H Creatinine 1.4 H Est GFR (CKD-EPI)AfAm 49.25 Est GFR (CKD-EPI)NonAf 42.49 POC Glucometer Random Glucose 80 Lactic Acid Calcium 8.7 Phosphorus Magnesium Total Bilirubin 0.2 AST 37 ALT 35 Alkaline Phosphatase 234 H Troponin I < 0.02 Total Protein 6.4 Albumin 2.0 L TSH Free T4 Urine Color Yellow Urine Appearance Turbid Urine pH >= 9.0 H D Ur Specific [place] 1.018 Urine Protein 4+ H Urine Glucose (UA) 1+ H Urine Ketones Negative Urine Blood Negative Urine Nitrite Negative Urine Bilirubin Negative Urine Urobilinogen 1.0 Ur Leukocyte Esterase 3+ H Urine WBC (Auto) 649 Urine RBC (Auto) 3 Urine Casts (Auto) 258 U Pathogenic Cast Auto None seen U Epithel Cells (Auto) >36 U Sm Round Cell (Auto) None seen Urine Crystals (Auto) Triple phosphate=2+ Urine Bacteria (Auto) 3894.2 Urine Yeast (Auto) None seen Random Vancomycin 10/12/18 10/12/18 10/12/18 11:30 17:20 19:45 WBC RBC Hgb Hct MCV MCH MCHC RDW Plt Count MPV Absolute Neuts (auto) Neutrophils % Neutrophils % (Manual) Band Neutrophils % Lymphocytes % Lymphocytes % (Manual) Monocytes % Monocytes % (Manual) Eosinophils % Eosinophils % (Manual) Basophils % Basophils % (Manual) Myelocytes % (Man) Promyelocytes % (Man) Blast Cells % (Manual) Nucleated RBC % Metamyelocytes Hypochromia Platelet Estimate Platelet Comment Polychromasia Poikilocytosis Anisocytosis Microcytosis Macrocytosis PT with INR INR PTT (Actin FS) Puncture Site ABG pH ABG pCO2 at Pt Temp ABG pO2 at Pt Temp ABG HCO3 ABG O2 Sat (Measured) ABG O2 Content ABG Base Excess Howard Test VBG pH 7.19 L* POC VBG pCO2 74.8 H* POC VBG pO2 38.2 VBG HCO3 27.6 VBG O2 Sat (Tim) 59.3 L VBG Base Excess -1.1 O2 Delivery Device Oxygen Flow Rate Vent Mode Vent Rate Mechanical Rate PEEP Pressure Support Vent Sodium 135 L Potassium 5.9 H Chloride 104 Carbon Dioxide 27 Anion Gap 4 L BUN 80.2 H Creatinine 1.5 H Est GFR (CKD-EPI)AfAm 45.30 Est GFR (CKD-EPI)NonAf 39.09 POC Glucometer Random Glucose 126 H Lactic Acid Calcium 8.2 L Phosphorus Magnesium Total Bilirubin 0.3 AST 38 H ALT 37 Alkaline Phosphatase 240 H Troponin I Total Protein 6.6 Albumin 2.0 L TSH Free T4 Urine Color Red Urine Appearance Turbid Urine pH 8.5 H Ur Specific [place] 1.013 Urine Protein 3+ H Urine Glucose (UA) Negative Urine Ketones Negative Urine Blood 3+ H Urine Nitrite Negative Urine Bilirubin Negative Urine Urobilinogen 0.2 Ur Leukocyte Esterase 3+ H Urine WBC (Auto) 1001 Urine RBC (Auto) 598 Urine Casts (Auto) 102 U Pathogenic Cast Auto None seen U Epithel Cells (Auto) 14.7 U Sm Round Cell (Auto) None seen Urine Crystals (Auto) Urine Bacteria (Auto) 657.2 Urine Yeast (Auto) Random Vancomycin 10/13/18 10/13/18 10/13/18 00:38 05:35 05:35 WBC 31.8 H* RBC 2.81 L Hgb 9.0 L Hct 27.4 L MCV 97.5 H MCH 31.8 MCHC 32.7 RDW 17.4 H Plt Count 107 L D MPV 11.3 H Absolute Neuts (auto) 30.0 H Neutrophils % 94.4 H Neutrophils % (Manual) Band Neutrophils % Lymphocytes % 1.2 L D Lymphocytes % (Manual) Monocytes % 4.1 Monocytes % (Manual) Eosinophils % 0.2 D Eosinophils % (Manual) Basophils % 0.1 Basophils % (Manual) Myelocytes % (Man) Promyelocytes % (Man) Blast Cells % (Manual) Nucleated RBC % 0 Metamyelocytes Hypochromia Platelet Estimate Platelet Comment Polychromasia Poikilocytosis Anisocytosis Microcytosis Macrocytosis PT with INR INR PTT (Actin FS) Puncture Site ABG pH ABG pCO2 at Pt Temp ABG pO2 at Pt Temp ABG HCO3 ABG O2 Sat (Measured) ABG O2 Content ABG Base Excess Howard Test VBG pH POC VBG pCO2 POC VBG pO2 VBG HCO3 VBG O2 Sat (Tmi) VBG Base Excess O2 Delivery Device Oxygen Flow Rate Vent Mode Vent Rate Mechanical Rate PEEP Pressure Support Vent Sodium Potassium Chloride Carbon Dioxide Anion Gap BUN Creatinine Est GFR (CKD-EPI)AfAm Est GFR (CKD-EPI)NonAf POC Glucometer 138 Random Glucose Lactic Acid Calcium Phosphorus Magnesium Total Bilirubin AST ALT Alkaline Phosphatase Troponin I Total Protein Albumin TSH Free T4 Urine Color Urine Appearance Urine pH Ur Specific [place] Urine Protein Urine Glucose (UA) Urine Ketones Urine Blood Urine Nitrite Urine Bilirubin Urine Urobilinogen Ur Leukocyte Esterase Urine WBC (Auto) Urine RBC (Auto) Urine Casts (Auto) U Pathogenic Cast Auto U Epithel Cells (Auto) U Sm Round Cell (Auto) Urine Crystals (Auto) Urine Bacteria (Auto) Urine Yeast (Auto) Random Vancomycin 20.4 10/13/18 10/13/18 10/13/18 05:35 05:35 05:53 WBC RBC Hgb Hct MCV MCH MCHC RDW Plt Count MPV Absolute Neuts (auto) Neutrophils % Neutrophils % (Manual) Band Neutrophils % Lymphocytes % Lymphocytes % (Manual) Monocytes % Monocytes % (Manual) Eosinophils % Eosinophils % (Manual) Basophils % Basophils % (Manual) Myelocytes % (Man) Promyelocytes % (Man) Blast Cells % (Manual) Nucleated RBC % Metamyelocytes Hypochromia Platelet Estimate Platelet Comment Polychromasia Poikilocytosis Anisocytosis Microcytosis Macrocytosis PT with INR INR PTT (Actin FS) Puncture Site ABG pH ABG pCO2 at Pt Temp ABG pO2 at Pt Temp ABG HCO3 ABG O2 Sat (Measured) ABG O2 Content ABG Base Excess Howard Test VBG pH POC VBG pCO2 POC VBG pO2 VBG HCO3 VBG O2 Sat (Tim) VBG Base Excess O2 Delivery Device Oxygen Flow Rate Vent Mode Vent Rate Mechanical Rate PEEP Pressure Support Vent Sodium 135 L Potassium 5.1 Chloride 104 Carbon Dioxide 26 Anion Gap 5 L BUN 73.6 H Creatinine 1.3 Est GFR (CKD-EPI)AfAm 53.86 Est GFR (CKD-EPI)NonAf 46.47 POC Glucometer 135 Random Glucose 126 H Lactic Acid Calcium 8.2 L Phosphorus 3.8 Magnesium 2.2 Total Bilirubin 0.4 AST 35 ALT 35 Alkaline Phosphatase 236 H Troponin I Total Protein 6.7 Albumin 2.0 L TSH 1.18 Free T4 0.97 Urine Color Urine Appearance Urine pH Ur Specific [place] Urine Protein Urine Glucose (UA) Urine Ketones Urine Blood Urine Nitrite Urine Bilirubin Urine Urobilinogen Ur Leukocyte Esterase Urine WBC (Auto) Urine RBC (Auto) Urine Casts (Auto) U Pathogenic Cast Auto U Epithel Cells (Auto) U Sm Round Cell (Auto) Urine Crystals (Auto) Urine Bacteria (Auto) Urine Yeast (Auto) Random Vancomycin 10/13/18 07:00 WBC RBC Hgb Hct MCV MCH MCHC RDW Plt Count MPV Absolute Neuts (auto) Neutrophils % Neutrophils % (Manual) Band Neutrophils % Lymphocytes % Lymphocytes % (Manual) Monocytes % Monocytes % (Manual) Eosinophils % Eosinophils % (Manual) Basophils % Basophils % (Manual) Myelocytes % (Man) Promyelocytes % (Man) Blast Cells % (Manual) Nucleated RBC % Metamyelocytes Hypochromia Platelet Estimate Platelet Comment Polychromasia Poikilocytosis Anisocytosis Microcytosis Macrocytosis PT with INR INR PTT (Actin FS) Puncture Site Right radial ABG pH 7.31 L ABG pCO2 at Pt Temp 47.4 H ABG pO2 at Pt Temp 112 H ABG HCO3 23.0 ABG O2 Sat (Measured) 98.5 H ABG O2 Content 12.8 L ABG Base Excess -2.8 L Howard Test Positive VBG pH POC VBG pCO2 POC VBG pO2 VBG HCO3 VBG O2 Sat (Tim) VBG Base Excess O2 Delivery Device Vent Oxygen Flow Rate 50% Vent Mode A/c Vent Rate 14 Mechanical Rate Mech vent PEEP 5.0 Pressure Support Vent 450 Sodium Potassium Chloride Carbon Dioxide Anion Gap BUN Creatinine Est GFR (CKD-EPI)AfAm Est GFR (CKD-EPI)NonAf POC Glucometer Random Glucose Lactic Acid Calcium Phosphorus Magnesium Total Bilirubin AST ALT Alkaline Phosphatase Troponin I Total Protein Albumin TSH Free T4 Urine Color Urine Appearance Urine pH Ur Specific [place] Urine Protein Urine Glucose (UA) Urine Ketones Urine Blood Urine Nitrite Urine Bilirubin Urine Urobilinogen Ur Leukocyte Esterase Urine WBC (Auto) Urine RBC (Auto) Urine Casts (Auto) U Pathogenic Cast Auto U Epithel Cells (Auto) U Sm Round Cell (Auto) Urine Crystals (Auto) Urine Bacteria (Auto) Urine Yeast (Auto) Random Vancomycin Active Medications Generic Name Dose Route Start Last Admin Trade Name Freq PRN Reason Stop Dose Admin Acetaminophen 1,000 mg 10/13/18 11:15 Ofirmev Injection - IVPB 10/13/18 11:16 ONCE ONE Chlorhexidine Gluconate 1 applic 10/12/18 22:00 10/12/18 22:35 Hibiclens For Decolonization - TP 1 applic HS CATHERINE Administration Heparin Sodium (Porcine) 5,000 unit 10/12/18 22:00 10/13/18 09:02 Heparin - SQ 5,000 unit BID CATHERINE Administration Hydrocortisone Sodium Succinate 50 mg 10/13/18 11:15 Solu-Cortef - IVPUSH Q6H CATHERINE Meropenem 1 gm/ Dextrose 100 mls @ 200 mls/hr 10/12/18 20:00 10/13/18 03:17 IVPB 200 mls/hr Q8H CATHERINE Administration Lactated Ringer's 1,000 ml in 1,000 mls @ 150 mls/hr 10/12/18 16:30 10/13/18 08:52 Lactated Ringers Solution IV 150 mls/hr ASDIR CATHERINE Administration Norepinephrine Bitartrate 8, 500 mls @ 37.5 mls/hr 10/12/18 19:15 10/13/18 05 :45 000 mcg/ Dextrose IV 16 mcg/min TITR CATHERINE 60 mls/hr Administration Protocol 10 MCG/MIN Vasopressin 50 units/ Sodium 100 mls @ 4 mls/hr 10/12/18 23:15 10/13/18 08:51 Chloride IVPB 6 units/hr ASDIR CATHERINE 12 mls/hr Administration Protocol 2 UNITS/HR Loratadine 10 mg 10/13/18 10:00 10/13/18 09:02 Claritin - PO 10 mg DAILY CATHERINE Administration Mirtazapine 7.5 mg 10/12/18 22:00 10/12/18 22:35 Remeron - PO 7.5 mg HS CATHERINE Administration Mupirocin 1 applic 10/12/18 22:00 10/13/18 09:01 Bactroban Ointment (For Decolonization) - NS 10/17/18 21:59 1 applic BID CATHERINE Administration Pregabalin 100 mg/ Pregabalin 150 mg 10/12/18 22:00 10/13/18 09:02 50 mg PO 150 mg BID CATHERINE Administration Sertraline HCl 100 mg 10/13/18 10:00 10/13/18 09:03 Zoloft - PO 100 mg DAILY CATHERINE Administration Ursodiol 300 mg 10/12/18 22:00 10/13/18 10:35 Actigal - PO 300 mg BID CATHERINE Administration ASSESSMENT/PLAN: Geetha Wood is a 53 year old female with a 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, 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, Chronic Hyponatremia, Hypothyroidism, Trigeminal Neuralgia, Recurrent UTI's (indwelling Perera) who was admitted with sepsis likely secondary to UTI Septic Shock secondary to urinary tract source Pneumonia Acute Hypoxic Hypercapneic Respiratory Failure Anemia Hypothyroidism Multiple Sclerosis Trigeminal Neuralgia NEUROLOGIC - on baclofen pump - alert and oriented - Tylenol 1000mg IV for pain - continue home pregabalin CARDIOLOGY - on Levophed wean as tolerated - on vasopressin wean as tolerated - has low BP at baseline due to autonomic dysfunction - hold home hypertensives - CVP monitoring and give boluses as necessary - avoid volume overload RESPIRATORY - on trach collar with ventilator - vent settings , rate 12 TV 450 O2 50% PEEP5 - repeat ABG 7.31, CO2 47, O2 112, improved - repeat CXR showing bibasilar infliltrates - continue on antibiotics for possible PNA - hydrocortisone 50mg q6h RENAL - hx of hyponatremia, continue to monitor - MANNY, CRE 1.3 elevated from baseline - continue hydration with LR at 150cc/hr - continue to trend CRE GASTROINTESTINAL - RUQ showing gallstones, trace pericholecystic fluid, dilated common bile duct - GI and surgery consulted GENITOURINARY - chronic indwelling perera - likely contributor to infection - US showing mild to moderate renal hydronephrosis INFECTIOUS DISEASE - today WBC 31.8, remains afebrile - vanco level today 20.4 - UA showing 3+ Leukocyte Esterase, 657 Bacteria, 1007 WBC - given vancomycin, meropenem, and gentamicin in setting of likely UTI - cover for pneumonia organisms - Dr. Carl consulted, recs appreciated ENDOCRINE - no acute issues HEMATOLOGY - anemia, stable - thrombocytopenia likely from sepsis, improved MUSCULOSKELETAL - on baclofen pump for spasticity PSYCHIATRY - continue home zoloft and remeron F/E/N - continue LR at 150cc/hr - continue to monitor electrolytes and transfuse as necessary - continue enteral feeds LINES - RIJ inserted 10/12 PROPHYLAXIS - heparin 5000 units subq bid CODE - full code DISPO - continue to monitor in the ICU CASE DISCUSSED WITH DR. GOLDMAN AND PRIMARY TEAM JACOB ALEGRIA DO - PGY-1 INTERNAL MEDICINE Visit type - Emergency Visit Emergency Visit: No - New Patient This patient is new to me today: Yes Date on this admission: 08/08/19 - Critical Care Critical Care patient: Yes Total Critical Care Time (in minutes): 35 Critical Care Statement: The care of this patient involved high complexity decision making to prevent further life threatening deterioration of the patient 's condition and/or to evaluate & treat vital organ system(s) failure or risk of failure.
[2018-10-13] MEDS ORDERED: ACETAMINOPHEN 1000 MG/100 ML VIAL (NON FORMULARY) IVPB ONE (11:15)
--- NOTE | 2018-10-13 11:20 | PN ---
Teaching Attending Note Name of Resident: Yariel Pruett ATTENDING PHYSICIAN STATEMENT I saw and evaluated the patient. I reviewed the resident's note and discussed the case with the resident. I agree with the resident's findings and plan as documented. SUBJECTIVE: Pt seen and examined in the ICU. Now on levophed and vasopressin gtts. Vented on volume assist control. OBJECTIVE: Vital Signs Period Temp Pulse Resp BP Sys/Morillo Pulse Ox Last 24 Hr 97.8 F-98.0 F 46-75 14-20 47-149/28-79 50-100 Intake & Output 10/10/18 10/11/18 10/12/18 10/13/18 23:59 23:59 23:59 23:59 Intake Total 250 2660 Output Total 745 1160 Balance -495 1500 Weight 73.936 kg 75 kg Gen: vented, more awake Heart: RRR Lung: decreased breath sounds at the bases Abd: soft, nontender Ext: no edema CBC, BMP 10/13/18 05:35 10/13/18 05:35 Active Medications Chlorhexidine Gluconate (Hibiclens For Decolonization -) 1 applic TP HS CATHERINE Last Admin: 10/12/18 22:35 Dose: 1 applic Heparin Sodium (Porcine) (Heparin -) 5,000 unit SQ BID CATHERINE Last Admin: 10/13/18 09:02 Dose: 5,000 unit Hydrocortisone Sodium Succinate (Solu-Cortef -) 50 mg IVPUSH Q6H CATHERINE Meropenem 1 gm/ Dextrose 100 mls @ 200 mls/hr IVPB Q8H CATHERINE Last Admin: 10/13/18 03:17 Dose: 200 mls/hr Lactated Ringer's (Lactated Ringers Solution) 1,000 ml in 1,000 mls @ 150 mls/ hr IV ASDIR CATHERINE Last Admin: 10/13/18 08:52 Dose: 150 mls/hr Norepinephrine Bitartrate 8, (000 mcg/ Dextrose) 500 mls @ 37.5 mls/hr IV TITR CATHERINE; Protocol Last Admin: 10/13/18 05:45 Dose: 16 mcg/min, 60 mls/hr Vasopressin 50 units/ Sodium (Chloride) 100 mls @ 4 mls/hr IVPB ASDIR CATHERINE; Protocol Last Admin: 10/13/18 08:51 Dose: 6 units/hr, 12 mls/hr Loratadine (Claritin -) 10 mg PO DAILY [facility] Last Admin: 10/13/18 09:02 Dose: 10 mg Mirtazapine (Remeron -) 7.5 mg PO HS [facility] Last Admin: 10/12/18 22:35 Dose: 7.5 mg Mupirocin (Bactroban Ointment (For Decolonization) -) 1 applic NS BID [facility] Stop: 10/17/18 21:59 Last Admin: 10/13/18 09:01 Dose: 1 applic Pregabalin 100 mg/ Pregabalin (50 mg) 150 mg PO BID [facility] Last Admin: 10/13/18 09:02 Dose: 150 mg Sertraline HCl (Zoloft -) 100 mg PO DAILY [facility] Last Admin: 10/13/18 09:03 Dose: 100 mg Ursodiol (Actigal -) 300 mg PO BID [facility] Last Admin: 10/13/18 10:35 Dose: 300 mg ASSESSMENT AND PLAN: Acute on Chronic Hypoxic and Hypercapneic Respiratory Failure r/o Pneumonia r/o UTI Septic Shock Acute Kidney Injury Hyperkalemia Thrombocytopenia Advanced Multiple Sclerosis Functional Quadriplegia HTN Hypothyroidism - continue antibiotics per ID - f/u cultures - IVF to keep CVP 8-12 - titrate pressors to maintain MAP >65 - monitor urine output, creatinine - monitor lytes - start empiric stress dose steroids - monitor CBC, coags - continue volume assist control - spontaneous breathing trials when hemodynamically stable - DVT/GI prophylaxis - continue ICU monitoring critical care time spent in reviewing chart, evaluating patient and formulating plan 35 min
--- NOTE | 2018-10-13 11:29 | CONSULT ---
Consult - text type - Consultation Consultation Note: Renal consult for MANNY/Hyperkalemia This is a 53 year old woman with history of multiple sclerosis s/p trach on vent as needed, hypothyroidism, recurrent UTI's who presented from home with AMS and found to have Sepsis syndrome with MANNY. Pt seen by our service many times in the past for hyponatremia. Pt seen and examined in the ICU. On vent via trach. On Levophed and vaospressen. BP is marginal. Pt is awake and alert. Family at the bedside. Was noted to have obstructed foely in ther ER that was replaced. Making urine now. PMhx: as above Allergies: as listed in EMR Family Hx: NC Social Hx: No T/A/D ROS: unable to obtain because of clinical status Home Medications Medication Instructions Recorded Amlodipine Besylate [Norvasc -] 5 mg PO DAILY 10/12/18 Clonazepam [Klonopin] 0.5 mg PO BID 10/12/18 Hydralazine HCl 50 mg PO TID 10/12/18 Levocetirizine Dihydrochloride 5 mg PO DAILY 10/12/18 Loratadine 10 mg PO DAILY 10/12/18 Metoprolol Tartrate [Lopressor -] 50 mg PO BID 10/12/18 Mirtazapine 7.5 mg PO HS 10/12/18 Pregabalin [Lyrica -] 150 mg PO BID 10/12/18 Sertraline HCl [Zoloft] 100 mg PO DAILY 10/12/18 Sodium Chloride 1,000 mg PO BID 10/12/18 Ursodiol [Actigal] 300 mg PO BID 10/12/18 Vital Signs Temperature 97.9 F 10/13/18 10:00 Pulse Rate 66 10/13/18 10:00 Respiratory Rate 14 10/13/18 10:00 Blood Pressure 116/45 L 10/13/18 10:00 O2 Sat by Pulse Oximetry (%) 100 10/13/18 08:00 Intake & Output 10/10/18 10/11/18 10/12/18 10/13/18 23:59 23:59 23:59 23:59 Intake Total 250 2660 Output Total 745 1160 Balance -495 1500 Weight 73.936 kg 75 kg NAD awake and alert on vent via trach RRR Dec BS, no rales or wheeze soft, NT/ND no LE edema, clubbing or cyanosis perera in place CBC, BMP 10/13/18 05:35 10/13/18 05:35 Laboratory Tests 10/12/18 10/12/18 10/13/18 11:30 19:45 05:35 Potassium 6.3 H* 5.9 H 5.1 BUN 86.4 H 80.2 H 73.6 H Creatinine 1.4 H 1.5 H 1.3 Current Medications Chlorhexidine Gluconate (Hibiclens For Decolonization -) 1 applic TP HS CATHERINE Last Admin: 10/12/18 22:35 Dose: 1 applic Heparin Sodium (Porcine) (Heparin -) 5,000 unit SQ BID CATHERINE Last Admin: 10/13/18 09:02 Dose: 5,000 unit Hydrocortisone Sodium Succinate (Solu-Cortef -) 50 mg IVPUSH Q6H CATHERINE Meropenem 1 gm/ Dextrose 100 mls @ 200 mls/hr IVPB Q8H CATHERINE Last Admin: 10/13/18 03:17 Dose: 200 mls/hr Lactated Ringer's (Lactated Ringers Solution) 1,000 ml in 1,000 mls @ 150 mls/ hr IV ASDIR CATHERINE Last Admin: 10/13/18 08:52 Dose: 150 mls/hr Norepinephrine Bitartrate 8, (000 mcg/ Dextrose) 500 mls @ 37.5 mls/hr IV TITR CATHERINE; Protocol Last Admin: 10/13/18 05:45 Dose: 16 mcg/min, 60 mls/hr Vasopressin 50 units/ Sodium (Chloride) 100 mls @ 4 mls/hr IVPB ASDIR CATHERINE; Protocol Last Admin: 10/13/18 08:51 Dose: 6 units/hr, 12 mls/hr Loratadine (Claritin -) 10 mg PO DAILY CATHERINE Last Admin: 10/13/18 09:02 Dose: 10 mg Mirtazapine (Remeron -) 7.5 mg PO HS CATHERINE Last Admin: 10/12/18 22:35 Dose: 7.5 mg Mupirocin (Bactroban Ointment (For Decolonization) -) 1 applic NS BID CATHERINE Stop: 10/17/18 21:59 Last Admin: 10/13/18 09:01 Dose: 1 applic Pregabalin 100 mg/ Pregabalin (50 mg) 150 mg PO BID CATHERINE Last Admin: 10/13/18 09:02 Dose: 150 mg Sertraline HCl (Zoloft -) 100 mg PO DAILY [facility] Last Admin: 10/13/18 09:03 Dose: 100 mg Ursodiol (Actigal -) 300 mg PO BID [facility] Last Admin: 10/13/18 10:35 Dose: 300 mg 53 year old woman with history of multiple sclerosis s/p trach on vent as needed, hypothyroidism, recurrent UTI's who presented from home with AMS and found to have Sepsis syndrome with MANNY. #MANNY in setting of sepsis/renal hypoprofusion vs obstruction (occluded Perera) now improved #Hyperkalemia in setting of MANNY #Sepsis r/o PNA vs. UTI #Multiple sclerosis #Hypothyroidism #Hx of SIADH Renal function and potassium improved continue sepsis management per ICU Empiric antibiotics pending cultures on LR, can continue with goal CVP of 10-12 keep MAP > 60, titrate pressers as per ICU team pt is restarted on feeds should have low K feed continue supportive care Thank you Will follow Tyshawn Doe DO
[2018-10-13] MEDS: HYDROCORTISONE SOD SUCCINATE 100 MG/2 ML VIAL IVPUSH SCH ×2 (12:15→18:00)
--- NOTE | 2018-10-13 13:14 | PN ---
Progress Note (short form) - Note Progress Note: alert responsive no complaints trach to vent perera with blood tinged urine FiO2 35% Vital Signs Period Temp Pulse Resp BP Sys/Morillo Pulse Ox Last 24 Hr 97.8 F-98.1 F 46-75 14-20 47-149/28-79 50-100 cor-rrr lungs clear abd +gt site clean sacral ulcers are clean ext no edema CBC, BMP 10/13/18 05:35 10/13/18 05:35 Microbiology 10/12/18 11:30 Blood - Peripheral Venous Blood Culture - Preliminary NO GROWTH OBTAINED AFTER 24 HOURS, INCUBATION TO CONTINUE FOR 4 DAYS. 10/12/18 11:30 Blood - Peripheral Venous Blood Culture - Preliminary Pending Organism 10/12/18 11:30 Urine - Urine - Catheterized Urine Culture - Final Contaminated: Please Repeat cxray pleural effusions vanco trough 20 a/p septic shock-suspect uti as source gram negative bacteremia jessica- improved MS with chronic trach/peg/perera sacral ulcer- local care continue meropenem, no need for further vancomycin gent one dose given this am Problem List - Problems (1) Septic shock Code(s): A41.9 - SEPSIS, UNSPECIFIED ORGANISM; R65.21 - SEVERE SEPSIS WITH SEPTIC SHOCK (2) Acute renal insufficiency Code(s): N28.9 - DISORDER OF KIDNEY AND URETER, UNSPECIFIED (3) Functional 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 (4) Sacral decubitus ulcer, stage IV Code(s): L89.154 - PRESSURE ULCER OF SACRAL REGION, STAGE 4
--- NOTE | 2018-10-13 20:21 | CONSULT ---
Consult Consult Specialty:: Surgery Reason for Consultation:: r/o cholecystitis and choledocholithiasis - History of Present Illness History of Present Illness: Patient is a 53 y/o female with past medical history of MS on trach collar mechanically ventilated, chronic hyponatremia, hypothyroidism, trigeminal neuralgia, chronic UTIs.LFT's noted to be abnormal on admission with leukocytosis. US showed galltones with pericholecystic fluid and dilated CBD. 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 No: Asthma, Bronchitis , Cancer, COPD, Pulmonary Embolus, Pulmonary Fibrosis, Sleep Apnea Gastrointestinal: Yes: Constipation (chronic) Hepatobiliary: Yes: Cholelithiasis Renal/: Yes: Neurogenic Bladder ( neurogenic bladder, chronic perera catheter) ...LMP: 06/07/12 Infectious Disease: Yes: Other (pneumonia, uti treated by urologist) Musculoskeletal: Yes: Other (Quadraplegia) Dermatology: Yes: Other (chronic decubitus followed by wound care) Additional Medical History: trigeminal neuralgia, baclofen pump. chronic decubitus followed by wound care. neurogenic bladder, chronic perera catheter. IR placed G tube - Past Surgical History Past Surgical History: Yes: Colonoscopy - Alcohol/Substance Use Hx Alcohol Use: No History of Substance Use: reports: None - Smoking History Smoking history: Current every day smoker Have you smoked in the past 12 months: No Aproximately how many cigarettes per day: 0 - Social History Usual Living Arrangement: With Parent (mother) ADL: Support Services History of Recent Travel: No Home Medications - Allergies Allergies/Adverse Reactions: Allergies Allergy/AdvReac Type Severity Reaction Status Date / Time chloral hydrate Allergy Intermediate Rash Verified 10/12/18 12:02 [Chloral Hydrate] azathioprine [From Imuran] Allergy Rash Verified 10/12/18 12:02 azathioprine sodium Allergy Rash Verified 10/12/18 12:02 [From Imuran] adhesive tape AdvReac Severe sensitivity Verified 10/12/18 12:02 to glue adhesive AdvReac Unknown Verified 10/12/18 12:02 - Home Medications Home Medications: Ambulatory Orders Amlodipine Besylate [Norvasc -] 5 mg PO DAILY 10/12/18 Clonazepam [Klonopin] 0.5 mg PO BID 10/12/18 Hydralazine HCl 50 mg PO TID 10/12/18 Levocetirizine Dihydrochloride 5 mg PO DAILY 10/12/18 Loratadine 10 mg PO DAILY 10/12/18 Metoprolol Tartrate [Lopressor -] 50 mg PO BID 10/12/18 Mirtazapine 7.5 mg PO HS 10/12/18 Pregabalin [Lyrica -] 150 mg PO BID 10/12/18 Sertraline HCl [Zoloft] 100 mg PO DAILY 10/12/18 Sodium Chloride 1,000 mg PO BID 10/12/18 Ursodiol [Actigal] 300 mg PO BID 10/12/18 Family Disease History - Family Disease History Family Disease History: Diabetes: Sister, Other: Father (GB surgery), Mother Physical Exam Vital Signs: Vital Signs Temperature 98.0 F 10/13/18 18:00 Pulse Rate 70 10/13/18 19:30 Respiratory Rate 14 10/13/18 18:00 Blood Pressure 158/68 10/13/18 19:30 O2 Sat by Pulse Oximetry (%) 100 10/13/18 08:00 Gastrointestinal: Yes: Other (DEFERRED) Labs: CBC, BMP 10/13/18 05:35 10/13/18 05:35 Imaging - Results Ultrasound: Report Reviewed, Image Reviewed Problem List - Problems (1) Gallstones Assessment/Plan: Doubt acute dholecystitis, patient may be passing stones into CBD Sepsis may be due to pneumonia Patient and family refuses any intervention regarding gallstone disease at this time Please reconsult prn. Code(s): K80.20 - CALCULUS OF GALLBLADDER W/O CHOLECYSTITIS W/O OBSTRUCTION
--- NOTE | 2018-10-13 21:12 | CON.GI ---
Consult Consult Specialty:: Gastroenterology Referred by:: RIVAS Kaufman Reason for Consultation:: dilated CBD - History of Present Illness Chief Complaint: sepsis History of Present Illness: 53F with multiple sclerosis is admitted with sepsis that is felt to be of origin. She was felt to have ascending cholangitis in 09/23 when her alkaline phosphatase reached 400's. She had her family refused ERCP and GB surgery. Her MRCP revealed no evidence of residual choledocholithiasis and her CBD was 8mm at that time. I advised that she take ursodiol lifelong and she has been taking it since then. She has a transfusion requiring anemia and apparently had a colonoscopy remotely. She was previously followed by Dr Hector and Dr Dangelo . 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: Multiple Sclerosis (quadraplegia), Other (legally blind, trigeminal neuralgia -> baclofen pump) Cardio/Vascular: Yes: HTN, Hyperlipdemia Pulmonary: Yes: Pneumonia, Previously Intubated, Other Gastrointestinal: Yes: Constipation (chronic) Hepatobiliary: Yes: Cholelithiasis Renal/: Yes: Neurogenic Bladder ( neurogenic bladder, chronic perera catheter) ...LMP: 06/07/12 Infectious Disease: Yes: Other (pneumonia, uti treated by urologist) Musculoskeletal: Yes: Other (Quadraplegia) Dermatology: Yes: Other (chronic decubitus followed by wound care) Additional Medical History: trigeminal neuralgia, baclofen pump. chronic decubitus followed by wound care. neurogenic bladder, chronic perera catheter. IR placed G tube - Past Surgical History Past Surgical History: Yes: Colonoscopy - Alcohol/Substance Use Hx Alcohol Use: No History of Substance Use: reports: None - Smoking History Smoking history: Current every day smoker Have you smoked in the past 12 months: No Aproximately how many cigarettes per day: 0 - Social History Usual Living Arrangement: With Parent (mother) ADL: Support Services Place of : [facility] History of Recent Travel: No Home Medications - Allergies Allergies/Adverse Reactions: Allergies Allergy/AdvReac Type Severity Reaction Status Date / Time chloral hydrate Allergy Intermediate Rash Verified 10/12/18 12:02 [Chloral Hydrate] azathioprine [From Imuran] Allergy Rash Verified 10/12/18 12:02 azathioprine sodium Allergy Rash Verified 10/12/18 12:02 [From Imuran] adhesive tape AdvReac Severe sensitivity Verified 10/12/18 12:02 to glue adhesive AdvReac Unknown Verified 10/12/18 12:02 - Home Medications Home Medications: Ambulatory Orders Amlodipine Besylate [Norvasc -] 5 mg PO DAILY 10/12/18 Clonazepam [Klonopin] 0.5 mg PO BID 10/12/18 Hydralazine HCl 50 mg PO TID 10/12/18 Levocetirizine Dihydrochloride 5 mg PO DAILY 10/12/18 Loratadine 10 mg PO DAILY 10/12/18 Metoprolol Tartrate [Lopressor -] 50 mg PO BID 10/12/18 Mirtazapine 7.5 mg PO HS 10/12/18 Pregabalin [Lyrica -] 150 mg PO BID 10/12/18 Sertraline HCl [Zoloft] 100 mg PO DAILY 10/12/18 Sodium Chloride 1,000 mg PO BID 10/12/18 Ursodiol [Actigal] 300 mg PO BID 10/12/18 Family Disease History - Family Disease History Family Disease History: Diabetes: Sister, Other: Father (GB surgery), Mother Review of Systems Unable to obtain ROS, reason: not communcative at prese Physical Exam-GI Vital Signs: Vital Signs Temperature 98.0 F 10/13/18 18:00 Pulse Rate 70 10/13/18 19:30 Respiratory Rate 14 10/13/18 20:46 Blood Pressure 158/68 10/13/18 19:30 O2 Sat by Pulse Oximetry (%) 100 10/13/18 08:00 CBC,CMP WBC 31.8 K/mm3 (4.0-10.0) H* 10/13/18 05:35 RBC 2.81 M/mm3 (3.60-5.2) L 10/13/18 05:35 Hgb 9.0 GM/dL (10.7-15.3) L 10/13/18 05:35 Hct 27.4 % (32.4-45.2) L 10/13/18 05:35 MCV 97.5 fl (80-96) H 10/13/18 05:35 MCH 31.8 pg (25.7-33.7) 10/13/18 05:35 MCHC 32.7 g/dl (32.0-36.0) 10/13/18 05:35 RDW 17.4 % (11.6-15.6) H 10/13/18 05:35 Plt Count 107 K/MM3 (134-434) L D 10/13/18 05:35 MPV 11.3 fl (7.5-11.1) H 10/13/18 05:35 Absolute Neuts (auto) 30.0 K/mm3 (1.5-8.0) H 10/13/18 05:35 Neutrophils % 94.4 % (42.8-82.8) H 10/13/18 05:35 Neutrophils % (Manual) 81.8 % (42.8-82.8) 10/13/18 05:35 Band Neutrophils % 14.2 % 10/13/18 05:35 Lymphocytes % 1.2 % (8-40) L D 10/13/18 05:35 Lymphocytes % (Manual) 3.0 % (8-40) L D 10/13/18 05:35 Monocytes % 4.1 % (3.8-10.2) 10/13/18 05:35 Monocytes % (Manual) 0 % (3.8-10.2) L 10/13/18 05:35 Eosinophils % 0.2 % (0-4.5) D 10/13/18 05:35 Eosinophils % (Manual) 1.0 % (0-4.5) D 10/13/18 05:35 Basophils % 0.1 % (0-2.0) 10/13/18 05:35 Basophils % (Manual) 0.0 % (0-2.0) 10/13/18 05:35 Myelocytes % (Man) 0 % (0-2) 10/13/18 05:35 Promyelocytes % (Man) 0 % (0-2) 10/13/18 05:35 Blast Cells % (Manual) 0 % (0-0) 10/13/18 05:35 Nucleated RBC % 0 % (0-0) 10/13/18 05:35 Metamyelocytes 0 % (0-2) 10/13/18 05:35 Hypochromia 0 10/13/18 05:35 Platelet Estimate Decreased 10/13/18 05:35 Platelet Comment Present 10/12/18 11:30 Polychromasia 0 10/13/18 05:35 Poikilocytosis 0 10/13/18 05:35 Anisocytosis 1+ 10/13/18 05:35 Microcytosis 0 10/13/18 05:35 Macrocytosis 1+ 10/13/18 05:35 Sodium 135 mmol/L (136-145) L 10/13/18 05:35 Potassium 5.1 mmol/L (3.5-5.1) 10/13/18 05:35 Chloride 104 mmol/L (98-107) 10/13/18 05:35 Carbon Dioxide 26 mmol/L (21-32) 10/13/18 05:35 Anion Gap 5 MMOL/L (8-16) L 10/13/18 05:35 BUN 73.6 mg/dL (7-18) H 10/13/18 05:35 Creatinine 1.3 mg/dL (0.55-1.3) 10/13/18 05:35 Est GFR (CKD-EPI)AfAm 53.86 10/13/18 05:35 Est GFR (CKD-EPI)NonAf 46.47 10/13/18 05:35 POC Glucometer 123 UNITS (80-120) 10/13/18 16:26 Random Glucose 126 mg/dL (74-106) H 10/13/18 05:35 Lactic Acid 1.1 mmol/L (0.4-2.0) 10/12/18 11:30 Calcium 8.2 mg/dL (8.5-10.1) L 10/13/18 05:35 Phosphorus 3.8 mg/dL (2.5-4.9) 10/13/18 05:35 Magnesium 2.2 mg/dL (1.8-2.4) 10/13/18 05:35 Total Bilirubin 0.4 mg/dL (0.2-1) 10/13/18 05:35 AST 35 U/L (15-37) 10/13/18 05:35 ALT 35 U/L (13-61) 10/13/18 05:35 Alkaline Phosphatase 236 U/L (45-117) H 10/13/18 05:35 Troponin I < 0.02 ng/ml (0.00-0.05) 10/12/18 11:30 Total Protein 6.7 g/dl (6.4-8.2) 10/13/18 05:35 Albumin 2.0 g/dl (3.4-5.0) L 10/13/18 05:35 TSH 1.18 uIU/ml (0.358-3.74) 10/13/18 05:35 Free T4 0.97 ng/dl (0.76-1.46) 10/13/18 05:35 Current Medications Generic Name Dose Route Start Last Admin Trade Name Freramez PRN Reason Stop Dose Admin Acetaminophen 650 mg 10/13/18 21:15 Tylenol - PO Q6H PRN FEVER Chlorhexidine Gluconate 1 applic 10/12/18 22:00 10/12/18 22:35 Hibiclens For Decolonization - TP 1 applic HS CATHERINE Administration Heparin Sodium (Porcine) 5,000 unit 10/12/18 22:00 10/13/18 09:02 Heparin - SQ 5,000 unit BID CATHERINE Administration Hydrocortisone Sodium Succinate 50 mg 10/13/18 11:15 10/13/18 18:00 Solu-Cortef - IVPUSH 50 mg Q6H CATHERINE Administration Meropenem 1 gm/ Dextrose 100 mls @ 200 mls/hr 10/12/18 20:00 10/13/18 20:38 IVPB 200 mls/hr Q8H CATHERINE Administration Lactated Ringer's 1,000 ml in 1,000 mls @ 150 mls/hr 10/12/18 16:30 10/13/18 16:30 Lactated Ringers Solution IV 150 mls/hr ASDIR CATHERINE Administration Norepinephrine Bitartrate 8, 500 mls @ 37.5 mls/hr 10/12/18 19:15 10/13/18 19 :32 000 mcg/ Dextrose IV Not Given TITR CATHERINE Protocol 10 MCG/MIN Vasopressin 50 units/ Sodium 100 mls @ 4 mls/hr 10/12/18 23:15 10/13/18 19:30 Chloride IVPB 2 units/hr ASDIR CATHERINE 4 mls/hr Titration Protocol 2 UNITS/HR Loratadine 10 mg 10/13/18 10:00 10/13/18 09:02 Claritin - PO 10 mg DAILY CATHERINE Administration Mirtazapine 7.5 mg 10/12/18 22:00 10/12/18 22:35 Remeron - PO 7.5 mg HS CATHERINE Administration Mupirocin 1 applic 10/12/18 22:00 10/13/18 09:01 Bactroban Ointment (For Decolonization) - NS 10/17/18 21:59 1 applic BID CATHERINE Administration Pregabalin 100 mg/ Pregabalin 150 mg 10/12/18 22:00 10/13/18 09:02 50 mg PO 150 mg BID CATHERINE Administration Sertraline HCl 100 mg 10/13/18 10:00 10/13/18 09:03 Zoloft - PO 100 mg DAILY CATHERINE Administration Ursodiol 300 mg 10/12/18 22:00 10/13/18 10:35 Actigal - PO 300 mg BID CATHERINE Administration Constitutional: Yes: Calm Eyes: Yes: Conjunctiva Clear HENT: Yes: Atraumatic Neck: Yes: Supple Cardiovascular: Yes: Tachycardia Respiratory: Yes: Mechanically Ventilated ...Auscultate: Yes: Normoactive Bowel Sounds ...Palpate: Yes: Soft, Other (nontender) ...Rectal Exam: Yes: Deferred Labs: CBC, BMP 10/13/18 05:35 10/13/18 05:35 INR, PTT INR 1.13 (0.83-1.09) H 10/12/18 11:30 Imaging - Results Ultrasound: Report Reviewed ( Final Report US ABDOMEN US -LIMITED Show Printer-Friendly Version Patient Name: Alondra Vila : 1964 ID: [id number] Study Date: 12-Oct-2018 15:35 [facility] Name : ALONDRA VILA DEPARTMENT OF RADIOLOGY Phys: Kar Higuera MD : 04/1964 Age: 53 Sex: F [facility] Acct: [id number] Loc: [address] Exam Date: 10/12/18 Status: [place] [address] Unit Number: [id number] EXAM#: TYPE/EXAM: RESULT: [id number] US/ABDOMEN US -LIMITED Rule out cholecystitis Right upper abdomen ultrasound. Compared to prior MRI of the abdomen dated 09/21/2018 and prior upper abdomen ultrasound dated 2018. The liver is enlarged measuring 21.5 cm in sagittal length with homogeneous echotexture. Gallbladder is adequately distended with multiple intraluminal stones without wall thickening. There is a trace of pericholecystic free fluid. No intrahepatic bile duct dilatation is seen. Dilated common bile duct measuring 9 mm. The right kidney measures 13.7 cm sagittal length with mild to moderate hydronephrosis and without gross evidence of stones. Visualized portion of the pancreatic head and body appear unremarkable. Visualized portion of the proximal abdominal aorta and inferior vena cava appear unremarkable. Normal flow in the main portal vein. IMPRESSION: Hepatomegaly. Gallstones without wall thickening. However, there is a trace of pericholecystic free fluid. Correlate clinically to rule out acute cholecystitis. Dilated distal common bile duct now measuring 9 mm. Interval mild to moderate right renal hydronephrosis Reported By: Sonido Casey MD 10/12/18 163 Technologist: Katie Blanco Transcribed Date/Time: 10/12/181631 Lpn Per Diem: Sonido Casey Printed Date/Time: By: Signed by: Sonido Casey Signed on: 12-Oct-2018 16:34) Problem List - Problems (1) Dilated bile duct Assessment/Plan: I believe that this is the results of repeated stone passage and that it is not really a change since 09/23. She can however develop cholangitis at any toime and should be maintained on ursodiol as she has opted against such interventions as ERCP and surgery Code(s): K83.8 - OTHER SPECIFIED DISEASES OF BILIARY TRACT (2) Gallstones Code(s): K80.20 - CALCULUS OF GALLBLADDER W/O CHOLECYSTITIS W/O OBSTRUCTION (3) Septic shock Code(s): A41.9 - SEPSIS, UNSPECIFIED ORGANISM; R65.21 - SEVERE SEPSIS WITH SEPTIC SHOCK (4) Abnormal LFTs Code(s): R94.5 - ABNORMAL RESULTS OF LIVER FUNCTION STUDIES (5) Acute on chronic respiratory failure with hypoxia and hypercapnia Code(s): J96.21 - ACUTE AND CHRONIC RESPIRATORY FAILURE WITH HYPOXIA; J96.22 - ACUTE AND CHRONIC RESPIRATORY FAILURE WITH HYPERCAPNIA (6) Choledocholithiasis Code(s): K80.50 - CALCULUS OF BILE DUCT W/O CHOLANGITIS OR CHOLECYST W/O OBST (7) Cholelithiasis Code(s): K80.20 - CALCULUS OF GALLBLADDER W/O CHOLECYSTITIS W/O OBSTRUCTION (8) Functional 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 (9) Hyponatremia Code(s): E87.1 - HYPO-OSMOLALITY AND HYPONATREMIA (10) Hypothyroid Code(s): E03.9 - HYPOTHYROIDISM, UNSPECIFIED (11) Multiple sclerosis Code(s): G35 - MULTIPLE SCLEROSIS (12) Respiratory failure Code(s): J96.90 - RESPIRATORY FAILURE, UNSP, UNSP W HYPOXIA OR HYPERCAPNIA (13) Sacral decubitus ulcer, stage IV Code(s): L89.154 - PRESSURE ULCER OF SACRAL REGION, STAGE 4 (14) Sepsis Code(s): A41.9 - SEPSIS, UNSPECIFIED ORGANISM Qualifiers: Sepsis type: sepsis due to unspecified organism Qualified Code(s): A41.9 - Sepsis, unspecified organism (15) Urinary tract infection Code(s): N39.0 - URINARY TRACT INFECTION, SITE NOT SPECIFIED Qualifiers: Assessment/Plan Impression: - I believe that this is the results of repeated stone passage and that it is not really a change since 09/23. She can however develop cholangitis at any toime and should be maintained on ursodiol as she has opted against such interventions as ERCP and surgery Plan: -- Follow LFTs, repeat MRCP is they rise -- Continue ursodiol I discussed the situation with her mother at the bedside
[2018-10-13] MEDS ORDERED: ACETAMINOPHEN 1000 MG/100 ML VIAL (NON FORMULARY) IVPB PRN (21:15)
[2018-10-13] MEDS: ACETAMINOPHEN 325 MG TABLET (FP) PO PRN (22:09)
[2018-10-13] MEDS: MIRTAZAPINE 15 MG TABLET (FP) PO SCH (22:09)
[2018-10-13] MEDS: CHLORHEXIDINE GLUCONATE 4% CLEANSER FOR DECOLONIZATION TP SCH (22:25)
[2018-10-14] MEDS ORDERED: MEROPENEM 1 GM VIAL (RESTRICTED TO ID) IVPB ONE ×3 (00:08→21:18)
[2018-10-14] MEDS ORDERED: DEXTROSE 5%-WATER 100 ML IVPB ONE ×3 (00:09→21:19)
[2018-10-14] MEDS: HYDROCORTISONE SOD SUCCINATE 100 MG/2 ML VIAL IVPUSH SCH ×5 (01:19→23:20)
[2018-10-14] MEDS: VASOPRESSIN 50 UNITS in SODIUM CHLORIDE 97.5 ML IVPB SCH (01:20)
[2018-10-14] MEDS: MEROPENEM 1 GM in DEXTROSE 5%-WATER 100 ML IVPB SCH ×3 (04:43→21:30)
[2018-10-14 07:02] LABS: ALBUMIN 1.8 g/dl (3.4-5.0); BILIRUBIN,TOTAL 0.3 mg/dL (0.2-1); BLOOD UREA NITROGEN 46.8 mg/dL (7-18); CALCIUM 8.4 mg/dL (8.5-10.1); CREATININE 0.9 mg/dL (0.55-1.3); MAGNESIUM 1.9 mg/dL (1.8-2.4); PHOSPHOROUS 3.8 mg/dL (2.5-4.9); POTASSIUM 4.6 mmol/L (3.5-5.1); TOT PROT 6.4 g/dl (6.4-8.2)
[2018-10-14 07:30] LABS: HEMATOCRIT 24.9 % (32.4-45.2); MCH 31.5 pg (25.7-33.7); MCHC 32.2 g/dl (32.0-36.0); MEAN CELL VOLUME 97.6 fl (80-96); MEAN PLT VOLUME 11.3 fl (7.5-11.1); PLATELET COUNT 86 K/MM3 (134-434); RBC 2.55 M/mm3 (3.60-5.2); RDW 17.5 % (11.6-15.6); WHITE BLOOD COUNT 27.7 K/mm3 (4.0-10.0)
--- NOTE | 2018-10-14 08:35 | PN ---
Progress Note, Physician Chief Complaint: AWAKE MORE ALERT NO NEW EVENTS OVERNIGHT CHART AND NOTES REVIEWED - Current Medication List Current Medications: Active Medications Acetaminophen (Tylenol -) 650 mg PO Q6H PRN PRN Reason: FEVER Last Admin: 10/13/18 22:09 Dose: 650 mg Acetaminophen (Ofirmev Injection -) 1,000 mg IVPB ONCE PRN PRN Reason: FEVER Chlorhexidine Gluconate (Hibiclens For Decolonization -) 1 applic TP HS CATHERINE Last Admin: 10/13/18 22:25 Dose: 1 applic Heparin Sodium (Porcine) (Heparin -) 5,000 unit SQ BID CATHERINE Last Admin: 10/13/18 22:10 Dose: 5,000 unit Hydrocortisone Sodium Succinate (Solu-Cortef -) 50 mg IVPUSH Q6H [facility] Last Admin: 10/14/18 05:51 Dose: 50 mg Meropenem 1 gm/ Dextrose 100 mls @ 200 mls/hr IVPB Q8H [facility] Last Admin: 10/14/18 04:43 Dose: 200 mls/hr Lactated Ringer's (Lactated Ringers Solution) 1,000 ml in 1,000 mls @ 150 mls/ hr IV ASDIR CATHERINE Last Admin: 10/13/18 16:30 Dose: 150 mls/hr Norepinephrine Bitartrate 8, (000 mcg/ Dextrose) 500 mls @ 37.5 mls/hr IV TITR [facility]; Protocol Last Titration: 10/14/18 05:16 Dose: 6 mcg/min, 22.5 mls/hr Vasopressin 50 units/ Sodium (Chloride) 100 mls @ 4 mls/hr IVPB ASDIR CATHERINE; Protocol Last Admin: 10/14/18 01:20 Dose: Not Given Loratadine (Claritin -) 10 mg PO DAILY CATHERINE Last Admin: 10/13/18 09:02 Dose: 10 mg Mirtazapine (Remeron -) 7.5 mg PO HS CATHERINE Last Admin: 10/13/18 22:09 Dose: 7.5 mg Mupirocin (Bactroban Ointment (For Decolonization) -) 1 applic NS BID CATHERINE Stop: 10/17/18 21:59 Last Admin: 10/13/18 22:25 Dose: 1 applic Pregabalin 100 mg/ Pregabalin (50 mg) 150 mg PO BID CATHERINE Last Admin: 10/13/18 22:08 Dose: 150 mg Sertraline HCl (Zoloft -) 100 mg PO DAILY [facility] Last Admin: 10/13/18 09:03 Dose: 100 mg Ursodiol (Actigal -) 300 mg PO BID [facility] Last Admin: 10/13/18 22:12 Dose: 300 mg - Objective Vital Signs: Vital Signs Temperature 97.6 F 10/14/18 02:00 Pulse Rate 51 L 10/14/18 06:00 Respiratory Rate 14 10/14/18 06:16 Blood Pressure 107/57 L 10/14/18 06:00 O2 Sat by Pulse Oximetry (%) 98 10/14/18 06:16 Constitutional: Yes: Mild Distress Neck: Yes: Other (TRACHCOLLAR) Cardiovascular: Yes: Regular Rate and Rhythm Respiratory: Yes: Mechanically Ventilated Gastrointestinal: Yes: Soft Genitourinary: Yes: Raza Present Edema: Yes Edema: LLE: Trace, RLE: Trace Integumentary: Yes: Rash Wound/Incision: Yes: Open to air, Unapproximated Neurological: Yes: Pre-Existing Deficit, Weakness Labs: CBC, BMP 10/14/18 05:20 10/14/18 05:20 INR, PTT INR 1.13 (0.83-1.09) H 10/12/18 11:30 Problem List - Problems (1) Acute renal insufficiency Code(s): N28.9 - DISORDER OF KIDNEY AND URETER, UNSPECIFIED (2) Hyperkalemia Code(s): E87.5 - HYPERKALEMIA (3) Hypotension Code(s): I95.9 - HYPOTENSION, UNSPECIFIED (4) Pneumonia Code(s): J18.9 - PNEUMONIA, UNSPECIFIED ORGANISM Qualifiers: Pneumonia type: due to unspecified organism Laterality: right Lung location: lower lobe of lung Qualified Code(s): J18.1 - Lobar pneumonia, unspecified organism (5) Abnormal LFTs Code(s): R94.5 - ABNORMAL RESULTS OF LIVER FUNCTION STUDIES (6) Acute on chronic respiratory failure with hypoxia and hypercapnia Code(s): J96.21 - ACUTE AND CHRONIC RESPIRATORY FAILURE WITH HYPOXIA; J96.22 - ACUTE AND CHRONIC RESPIRATORY FAILURE WITH HYPERCAPNIA (7) Adrenal insufficiency Code(s): E27.40 - UNSPECIFIED ADRENOCORTICAL INSUFFICIENCY (8) Functional quadriplegia Code(s): R53.2 - FUNCTIONAL QUADRIPLEGIA (9) Functional 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 Assessment/Plan IV ABX PER ID AWAIT CULTURES AND SENS. RESPIRATORY SUPPORT ON VENT WITH TRACH-COLLAR ADVANCED DIRECTIVES NEED TO BE REVIEWED DVT PROPHYLAXIS PT EVAL
--- NOTE | 2018-10-14 08:46 | PN ---
Physical Exam: SUBJECTIVE: Patient awake, trached, no active medical complaints including no chest pain, shortness of breath, abdominal pain. Patient's vasopressin gtt stopped overnight, remains on Levophed drip. OBJECTIVE: General: Awake, alert, NAD HEENT: Tracheostomy in place, insertion site C/D/I CV: S1, S2, RRR Respiratory: decreased bibasilar breath sounds R > L Abdomen: soft, (+) bowel sounds, PEG tube insertion site C/D/I Integumentary: 4 B/L gluteal ulcers, stage IV Vital Signs Period Temp Pulse Resp BP Sys/Morillo Pulse Ox Last 24 Hr 97.6 F-99.8 F 49-73 14-17 107-166/39-68 35-98 Laboratory Results - last 24 hr 10/13/18 10/13/18 10/13/18 05:35 12:16 16:26 WBC RBC Hgb Hct MCV MCH MCHC RDW Plt Count MPV Neutrophils % (Manual) 81.8 Band Neutrophils % 14.2 Lymphocytes % (Manual) 3.0 L D Monocytes % (Manual) 0 L Eosinophils % (Manual) 1.0 D Basophils % (Manual) 0.0 Myelocytes % (Man) 0 Promyelocytes % (Man) 0 Blast Cells % (Manual) 0 Metamyelocytes 0 Hypochromia 0 Platelet Estimate Decreased Polychromasia 0 Poikilocytosis 0 Anisocytosis 1+ Microcytosis 0 Macrocytosis 1+ Sodium Potassium Chloride Carbon Dioxide Anion Gap BUN Creatinine Est GFR (CKD-EPI)AfAm Est GFR (CKD-EPI)NonAf POC Glucometer 103 123 Random Glucose Calcium Phosphorus Magnesium Total Bilirubin AST ALT Alkaline Phosphatase Total Protein Albumin 10/14/18 10/14/18 05:20 05:20 WBC 27.7 H RBC 2.55 L Hgb 8.0 L Hct 24.9 L MCV 97.6 H MCH 31.5 MCHC 32.2 RDW 17.5 H Plt Count 86 L MPV 11.3 H Neutrophils % (Manual) Band Neutrophils % Lymphocytes % (Manual) Monocytes % (Manual) Eosinophils % (Manual) Basophils % (Manual) Myelocytes % (Man) Promyelocytes % (Man) Blast Cells % (Manual) Metamyelocytes Hypochromia Platelet Estimate Polychromasia Poikilocytosis Anisocytosis Microcytosis Macrocytosis Sodium 139 Potassium 4.6 Chloride 106 Carbon Dioxide 26 Anion Gap 6 L BUN 46.8 H Creatinine 0.9 Est GFR (CKD-EPI)AfAm 84.01 Est GFR (CKD-EPI)NonAf 72.49 POC Glucometer Random Glucose 105 Calcium 8.4 L Phosphorus 3.8 Magnesium 1.9 Total Bilirubin 0.3 AST 25 ALT 27 Alkaline Phosphatase 226 H Total Protein 6.4 Albumin 1.8 L Active Medications Generic Name Dose Route Start Last Admin Trade Name Freq PRN Reason Stop Dose Admin Acetaminophen 650 mg 10/13/18 21:15 10/13/18 22:09 Tylenol - PO 650 mg Q6H PRN Administration FEVER Acetaminophen 1,000 mg 10/13/18 21:15 Ofirmev Injection - IVPB ONCE PRN FEVER Chlorhexidine Gluconate 1 applic 10/12/18 22:00 10/13/18 22:25 Hibiclens For Decolonization - TP 1 applic HS CATHERINE Administration Heparin Sodium (Porcine) 5,000 unit 10/12/18 22:00 10/13/18 22:10 Heparin - SQ 5,000 unit BID CATHERINE Administration Hydrocortisone Sodium Succinate 50 mg 10/13/18 11:15 10/14/18 05:51 Solu-Cortef - IVPUSH 50 mg Q6H CATHERINE Administration Meropenem 1 gm/ Dextrose 100 mls @ 200 mls/hr 10/12/18 20:00 10/14/18 04:43 IVPB 200 mls/hr Q8H CATHERINE Administration Lactated Ringer's 1,000 ml in 1,000 mls @ 150 mls/hr 10/12/18 16:30 10/13/18 16:30 Lactated Ringers Solution IV 150 mls/hr ASDIR CATHERINE Administration Norepinephrine Bitartrate 8, 500 mls @ 37.5 mls/hr 10/12/18 19:15 10/14/18 05 :16 000 mcg/ Dextrose IV 6 mcg/min TITR CATHERINE 22.5 mls/hr Titration Protocol 10 MCG/MIN Vasopressin 50 units/ Sodium 100 mls @ 4 mls/hr 10/12/18 23:15 10/14/18 01:20 Chloride IVPB Not Given ASDIR CATHERINE Protocol 2 UNITS/HR Loratadine 10 mg 10/13/18 10:00 10/13/18 09:02 Claritin - PO 10 mg DAILY CATHERINE Administration Mirtazapine 7.5 mg 08/07/19 22:00 10/13/18 22:09 Remeron - PO 7.5 mg HS CATHERINE Administration Mupirocin 1 applic 10/12/18 22:00 10/13/18 22:25 Bactroban Ointment (For Decolonization) - NS 10/17/18 21:59 1 applic BID CATHERINE Administration Pregabalin 100 mg/ Pregabalin 150 mg 10/12/18 22:00 10/13/18 22:08 50 mg PO 150 mg BID CATHERINE Administration Sertraline HCl 100 mg 10/13/18 10:00 10/13/18 09:03 Zoloft - PO 100 mg DAILY CATHERINE Administration Ursodiol 300 mg 10/12/18 22:00 10/13/18 22:12 Actigal - PO 300 mg BID CATHERINE Administration ASSESSMENT/PLAN: Geetha Wood is a 53 year old female with a 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, 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, Chronic Hyponatremia, Hypothyroidism, Trigeminal Neuralgia, Recurrent UTI's (indwelling Perera) who was admitted with sepsis likely secondary to UTI Septic Shock secondary to urinary tract source Pneumonia Acute Hypoxic Hypercapneic Respiratory Failure Anemia Hypothyroidism Multiple Sclerosis Trigeminal Neuralgia NEUROLOGIC - on baclofen pump - alert and oriented - Tylenol 1000mg IV for pain - continue home pregabalin CARDIOLOGY - on Levophed wean as tolerated - has low BP at baseline due to autonomic dysfunction - hold home hypertensives - CVP monitoring and give boluses as necessary - avoid volume overload RESPIRATORY - on trach collar with ventilator; switch to trach collar with speaking valve later today. - repeat CXR showing bibasilar infliltrates - continue on antibiotics for possible PNA - hydrocortisone 50mg q6h; once off Levophed, will decrease steroids to BID RENAL - hx of hyponatremia, continue to monitor - MANNY resolved, Cr 0.8 today - continue hydration with LR at 150cc/hr - Daily CMP GASTROINTESTINAL - RUQ showing gallstones, trace pericholecystic fluid, dilated common bile duct - GI and surgery consulted GENITOURINARY - chronic indwelling perera - perera with dark yellow urine, no visible blood - likely contributor to infection - US showing mild to moderate renal hydronephrosis INFECTIOUS DISEASE - today WBC 27.7 remains afebrile - vanco level yesterday 20.4 - UA showing 3+ Leukocyte Esterase, 657 Bacteria, 1007 WBC; w/ G (-) bacteria - given vancomycin, meropenem, and gentamicin in setting of likely UTI - Will continue Meropenem; vancomycin stopped as per ID - Dr. Carl following, continue to appreciate recs ENDOCRINE - no acute issues HEMATOLOGY - anemia, stable - thrombocytopenia likely from sepsis, improved MUSCULOSKELETAL - on baclofen pump for spasticity PSYCHIATRY - continue home zoloft and remeron F/E/N - continue LR at 150cc/hr - continue to monitor electrolytes and transfuse as necessary - continue enteral feeds LINES - RIJ inserted 10/12 PROPHYLAXIS - heparin 5000 units subq bid Visit type - Emergency Visit Emergency Visit: No - New Patient This patient is new to me today: No - Critical Care Critical Care patient: Yes Total Critical Care Time (in minutes): 20 ATTENDING PHYSICIAN STATEMENT I saw and evaluated the patient. I reviewed the resident's note and discussed the case with the resident. I agree with the resident's findings and plan as documented. SUBJECTIVE: OBJECTIVE: ASSESSMENT AND PLAN:
--- NOTE | 2018-10-14 09:19 | PN ---
Progress Note (short form) - Note Progress Note: alert pressors being tapered no complaints Vital Signs Period Temp Pulse Resp BP Sys/Morillo Pulse Ox Last 24 Hr 97.6 F-99.8 F 49-73 14-17 107-166/39-68 35-98 FiO2 35% cor-rrr lungs decreased bs at bases abd soft,nt +GT perera clear urine ext trace edema CBC, BMP 10/14/18 05:20 10/14/18 05:20 Microbiology 10/12/18 17:20 Urine - Urine - Catheterized Urine Culture - Preliminary Lactose Fermenting Neg Bacilli Lactose Fermenting Neg Bacilli#2 10/12/18 17:20 Urine For Antigen Detection Legionella Antigen - Final 10/12/18 17:20 Urine For Antigen Detection Streptococcus pneumoniae Antigen (M - Final 10/12/18 11:30 Blood - Peripheral Venous Blood Culture - Preliminary NO GROWTH OBTAINED AFTER 24 HOURS, INCUBATION TO CONTINUE FOR 4 DAYS. 10/12/18 11:30 Blood - Peripheral Venous Blood Culture - Preliminary Pending Organism 10/12/18 11:30 Urine - Urine - Catheterized Urine Culture - Final Contaminated: Please Repeat a/p septic shock-suspect uti as source-clinically improving, pressors being tapered gram negative bacteremia continue meropenem day #2 jessica- improved MS with chronic trach/peg/perera sacral ulcer- local care Problem List - Problems (1) Septic shock Code(s): A41.9 - SEPSIS, UNSPECIFIED ORGANISM; R65.21 - SEVERE SEPSIS WITH SEPTIC SHOCK (2) Acute renal insufficiency Code(s): N28.9 - DISORDER OF KIDNEY AND URETER, UNSPECIFIED (3) Functional 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 (4) Sacral decubitus ulcer, stage IV Code(s): L89.154 - PRESSURE ULCER OF SACRAL REGION, STAGE 4
[2018-10-14] MEDS: PREGABALIN 100 MG, PREGABALIN 50 MG PO SCH ×2 (10:00→21:32)
[2018-10-14] MEDS: LORATADINE 10 MG TABLET PO SCH (10:35)
[2018-10-14] MEDS: MUPIROCIN 2% TOPICAL OINTMENT FOR DECOLONIZATION NS SCH ×2 (10:35→21:35)
[2018-10-14] MEDS: URSODIOL 300 MG CAPSULE PO SCH ×2 (10:35→22:11)
--- NOTE | 2018-10-14 10:59 | PN ---
Teaching Attending Note Name of Resident: Donna Olson ATTENDING PHYSICIAN STATEMENT I saw and evaluated the patient. I reviewed the resident's note and discussed the case with the resident. I agree with the resident's findings and plan as documented. SUBJECTIVE: Pt seen and examined in the ICU. Vented, awake. On lower dose levophed, off vasopressin gtt. OBJECTIVE: Vital Signs Period Temp Pulse Resp BP Sys/Morillo Pulse Ox Last 24 Hr 97.6 F-99.8 F 49-73 14-17 107-166/39-68 35-98 Intake & Output 10/11/18 10/12/18 10/13/18 10/14/18 23:59 23:59 23:59 23:59 Intake Total 250 5600 2462 Output Total 745 3160 1500 Balance -495 2440 962 Weight 73.936 kg 74.843 kg Gen: vented, awake Heart: RRR Lung: decreased breath sounds at the bases Abd: soft, nontender Ext: no edema CBC, BMP 10/14/18 05:20 Active Medications Acetaminophen (Tylenol -) 650 mg PO Q6H PRN PRN Reason: FEVER Last Admin: 10/13/18 22:09 Dose: 650 mg Acetaminophen (Ofirmev Injection -) 1,000 mg IVPB ONCE PRN PRN Reason: FEVER Chlorhexidine Gluconate (Hibiclens For Decolonization -) 1 applic TP HS CATHERINE Last Admin: 10/13/18 22:25 Dose: 1 applic Heparin Sodium (Porcine) (Heparin -) 5,000 unit SQ BID CATHERINE Last Admin: 10/13/18 22:10 Dose: 5,000 unit Hydrocortisone Sodium Succinate (Solu-Cortef -) 50 mg IVPUSH Q6H CATHERINE Last Admin: 10/14/18 05:51 Dose: 50 mg Meropenem 1 gm/ Dextrose 100 mls @ 200 mls/hr IVPB Q8H CATHERINE Last Admin: 10/14/18 04:43 Dose: 200 mls/hr Lactated Ringer's (Lactated Ringers Solution) 1,000 ml in 1,000 mls @ 150 mls/ hr IV ASDIR CATHERINE Last Admin: 10/13/18 16:30 Dose: 150 mls/hr Norepinephrine Bitartrate 8, (000 mcg/ Dextrose) 500 mls @ 37.5 mls/hr IV TITR CATHERINE; Protocol Last Titration: 10/14/18 05:16 Dose: 6 mcg/min, 22.5 mls/hr Vasopressin 50 units/ Sodium (Chloride) 100 mls @ 4 mls/hr IVPB ASDIR [facility]; Protocol Last Admin: 10/14/18 01:20 Dose: Not Given Loratadine (Claritin -) 10 mg PO DAILY [facility] Last Admin: 10/13/18 09:02 Dose: 10 mg Mirtazapine (Remeron -) 7.5 mg PO HS [facility] Last Admin: 10/13/18 22:09 Dose: 7.5 mg Mupirocin (Bactroban Ointment (For Decolonization) -) 1 applic NS BID [facility] Stop: 10/17/18 21:59 Last Admin: 10/13/18 22:25 Dose: 1 applic Pregabalin 100 mg/ Pregabalin (50 mg) 150 mg PO BID [facility] Last Admin: 10/13/18 22:08 Dose: 150 mg Sertraline HCl (Zoloft -) 100 mg PO DAILY [facility] Last Admin: 10/13/18 09:03 Dose: 100 mg Ursodiol (Actigal -) 300 mg PO BID [facility] Last Admin: 10/13/18 22:12 Dose: 300 mg ASSESSMENT AND PLAN: Acute on Chronic Hypoxic and Hypercapneic Respiratory Failure r/o Pneumonia r/o UTI Septic Shock Acute Kidney Injury Hyperkalemia Thrombocytopenia Advanced Multiple Sclerosis Functional Quadriplegia HTN Hypothyroidism - continue antibiotics per ID - f/u cultures - IVF to keep CVP 8-12 - titrate pressors to maintain MAP >65 - monitor urine output, creatinine - monitor lytes - taper empiric stress dose steroids once off steroids - monitor CBC, coags - spontaneous breathing trials when hemodynamically stable - transition to trach collar with speaking valve - DVT/GI prophylaxis - continue ICU monitoring critical care time spent in reviewing chart, evaluating patient and formulating plan 35 min
[2018-10-14 11:01] LABS: ALBUMIN 1.8 g/dl (3.4-5.0); BILIRUBIN,TOTAL 0.4 mg/dL (0.2-1); BLOOD UREA NITROGEN 44.6 mg/dL (7-18); CALCIUM 8.7 mg/dL (8.5-10.1); CREATININE 0.8 mg/dL (0.55-1.3); POTASSIUM 4.6 mmol/L (3.5-5.1); TOT PROT 6.3 g/dl (6.4-8.2)
[2018-10-14] MEDS ORDERED: PREGABALIN 50 MG CAPSULE ONE ×2 (11:06→21:17)
[2018-10-14] MEDS ORDERED: PREGABALIN 100 MG CAPSULE ONE ×2 (11:07→21:18)
[2018-10-14] MEDS ORDERED: PT OWN MED DRAWER 7, Y5N ONE ×2 (11:08→21:19)
[2018-10-14] MEDS: HEPARIN NA (PORCINE) 5,000 UNITS/ML 1ML VIAL SQ SCH ×2 (11:36→21:31)
[2018-10-14] MEDS: SERTRALINE HCL 50 MG TABLET (FP) PO SCH (11:36)
--- NOTE | 2018-10-14 12:01 | PN ---
Progress Note (short form) - Note Progress Note: Renal follow up for MANNY Pt seen and examined in the ICU awake and alert on Vent via trach making urine perera presser requirements coming down on IVF Vital Signs Temperature 97.6 F 10/14/18 02:00 Pulse Rate 52 L 10/14/18 11:47 Respiratory Rate 14 10/14/18 11:36 Blood Pressure 127/68 10/14/18 11:47 O2 Sat by Pulse Oximetry (%) 98 10/14/18 10:00 Intake & Output 10/11/18 10/12/18 10/13/18 10/14/18 23:59 23:59 23:59 23:59 Intake Total 250 5600 2462 Output Total 745 3160 1500 Balance -495 2440 962 Weight 73.936 kg 74.843 kg NAD on vent via trach RRR Dec BS, no rales or wheeze soft, NT/ND no LE edema, clubbing or cyanosis perera in place CBC, BMP 10/14/18 05:20 10/14/18 08:45 Current Medications Acetaminophen (Tylenol -) 650 mg PO Q6H PRN PRN Reason: FEVER Last Admin: 10/13/18 22:09 Dose: 650 mg Acetaminophen (Ofirmev Injection -) 1,000 mg IVPB ONCE PRN PRN Reason: FEVER Chlorhexidine Gluconate (Hibiclens For Decolonization -) 1 applic TP HS [facility] Last Admin: 10/13/18 22:25 Dose: 1 applic Heparin Sodium (Porcine) (Heparin -) 5,000 unit SQ BID CATHERINE Last Admin: 10/14/18 11:36 Dose: 5,000 unit Hydrocortisone Sodium Succinate (Solu-Cortef -) 50 mg IVPUSH Q6H [facility] Last Admin: 10/14/18 11:37 Dose: 50 mg Meropenem 1 gm/ Dextrose 100 mls @ 200 mls/hr IVPB Q8H [facility] Last Admin: 10/14/18 11:42 Dose: 200 mls/hr Lactated Ringer's (Lactated Ringers Solution) 1,000 ml in 1,000 mls @ 150 mls/ hr IV ASDIR CATHERINE Last Admin: 10/13/18 16:30 Dose: 150 mls/hr Norepinephrine Bitartrate 8, (000 mcg/ Dextrose) 500 mls @ 37.5 mls/hr IV TITR [facility]; Protocol Last Titration: 10/14/18 11:47 Dose: 2 mcg/min, 7.5 mls/hr Vasopressin 50 units/ Sodium (Chloride) 100 mls @ 4 mls/hr IVPB ASDIR CATHERINE; Protocol Last Admin: 10/14/18 01:20 Dose: Not Given Loratadine (Claritin -) 10 mg PO DAILY [facility] Last Admin: 10/14/18 10:35 Dose: 10 mg Mirtazapine (Remeron -) 7.5 mg PO HS [facility] Last Admin: 10/13/18 22:09 Dose: 7.5 mg Mupirocin (Bactroban Ointment (For Decolonization) -) 1 applic NS BID [facility] Stop: 10/17/18 21:59 Last Admin: 10/14/18 10:35 Dose: 1 applic Pregabalin 100 mg/ Pregabalin (50 mg) 150 mg PO BID [facility] Last Admin: 10/14/18 10:00 Dose: 150 mg Sertraline HCl (Zoloft -) 100 mg PO DAILY [facility] Last Admin: 10/14/18 11:36 Dose: 100 mg Ursodiol (Actigal -) 300 mg PO BID [facility] Last Admin: 10/14/18 10:35 Dose: 300 mg 53 year old woman with history of multiple sclerosis s/p trach on vent as needed, hypothyroidism, recurrent UTI's who presented from home with AMS and found to have Sepsis syndrome with MANNY. #MANNY in setting of sepsis/renal hypoprofusion vs obstruction (occluded Perera) now improved #Hyperkalemia in setting of MANNY (improved) #Sepsis r/o PNA vs. UTI #Multiple sclerosis #Hypothyroidism #Hx of SIADH Renal function now improved to baseline continue sepsis management per ICU Empiric antibiotics pending cultures on LR, can continue with goal CVP of 10-12 (todays reading was 7) keep MAP > 60, titrate pressers as per ICU team pt is restarted on feeds should have low K feed continue supportive care Trend renal function and electrolytes daily continue low potassium tube feeds will follow up as needed Tyshawn Doe DO
[2018-10-14] MEDS: LACTATED RINGERS SOLUTION 1,000 ML/1,000 ML INFUS.BAG IV SCH (18:13)
[2018-10-14] MEDS: MIRTAZAPINE 15 MG TABLET (FP) PO SCH (21:33)
[2018-10-14] MEDS: CHLORHEXIDINE GLUCONATE 4% CLEANSER FOR DECOLONIZATION TP SCH (21:34)
[2018-10-14] MEDS: clonazePAM 0.5 MG TABLET PO SCH (23:59)
[2018-10-15] MEDS ORDERED: MEROPENEM 1 GM VIAL (RESTRICTED TO ID) IVPB ONE ×2 (02:02→10:15)
[2018-10-15] MEDS ORDERED: DEXTROSE 5%-WATER 100 ML IVPB ONE ×3 (02:02→12:15)
[2018-10-15] MEDS: MEROPENEM 1 GM in DEXTROSE 5%-WATER 100 ML IVPB SCH (05:47)
[2018-10-15] MEDS: HYDROCORTISONE SOD SUCCINATE 100 MG/2 ML VIAL IVPUSH SCH ×3 (05:48→21:07)
--- NOTE | 2018-10-15 07:26 | PN ---
Progress Note (short form) - Note Progress Note: Pulm/CCM SUBJECTIVE: Pt seen and examined in the ICU. 24Hr: Weaned off pressors, hemodynamics stabilized No fever, wbc remains high but downtrending from peak OBJECTIVE: Vital Signs Temp 97.2 F L 10/15/18 04:00 Pulse 53 L 10/15/18 06:00 Resp 16 10/15/18 07:01 BP 141/73 10/15/18 06:00 Pulse Ox 97 10/14/18 11:20 Intake & Output 10/14/18 10/14/18 10/15/18 11:59 23:59 11:59 Intake Total 2462 2880 1291 Output Total 1500 3000 800 Balance 962 -120 491 Weight 76.884 kg Intake: IV 2362 2460 1071 LACTATED RINGERS SOLUTION 1800 2400 1050 1,000 ml In 1,000 ml @ 150 mls/hr IV ASDIR CATHERINE Rx#:[id number] Levophed - 8,000 Mcg In 540 60 21 D5w - 492 ml @ 10 MCG/MIN 37.5 mls/hr IV TITR CATHERINE Rx#:[id number] Pitressin - 50 Units In 12 Normal Saline - 97.5 ml @ 2 UNITS/HR 4 mls/hr IVPB ASDIR CATHERINE Rx#: [id number] Saline Lock 10 IVPB 100 200 100 Oral 0 Tube Irrigant 220 120 Output: Urine 1500 3000 800 Raza 1500 3000 800 Other: Voiding Method Indwelling Catheter Indwelling Catheter Bowel Movement Yes No # Bowel Movements 1 Gen: vented, awake Heart: RRR Lung: diminished bilaterally Abd: soft, nontender Ext: no edema CBC, BMP 10/14/18 05:20 10/14/18 08:45 Active Medications Acetaminophen (Tylenol -) 650 mg PO Q6H PRN PRN Reason: FEVER Last Admin: 10/13/18 22:09 Dose: 650 mg Chlorhexidine Gluconate (Hibiclens For Decolonization -) 1 applic TP HS [facility] Last Admin: 10/14/18 21:34 Dose: 1 applic Clonazepam (Klonopin -) 0.5 mg PO BID [facility] Last Admin: 10/14/18 23:59 Dose: 0.5 mg Heparin Sodium (Porcine) (Heparin -) 5,000 unit SQ BID [facility] Last Admin: 10/14/18 21:31 Dose: 5,000 unit Hydrocortisone Sodium Succinate (Solu-Cortef -) 50 mg IVPUSH Q6H [facility] Last Admin: 10/15/18 05:48 Dose: 50 mg Meropenem 1 gm/ Dextrose 100 mls @ 200 mls/hr IVPB Q8H [facility] Last Admin: 10/15/18 05:47 Dose: 200 mls/hr Lactated Ringer's (Lactated Ringers Solution) 1,000 ml in 1,000 mls @ 150 mls/ hr IV ASDIR [facility] Last Admin: 10/14/18 18:13 Dose: 150 mls/hr Loratadine (Claritin -) 10 mg PO DAILY [facility] Last Admin: 10/14/18 10:35 Dose: 10 mg Mirtazapine (Remeron -) 7.5 mg PO HS [facility] Last Admin: 10/14/18 21:33 Dose: 7.5 mg Mupirocin (Bactroban Ointment (For Decolonization) -) 1 applic NS BID [facility] Stop: 10/17/18 21:59 Last Admin: 10/14/18 21:35 Dose: 1 applic Pregabalin 100 mg/ Pregabalin (50 mg) 150 mg PO BID [facility] Last Admin: 10/14/18 21:32 Dose: 150 mg Sertraline HCl (Zoloft -) 100 mg PO DAILY [facility] Last Admin: 10/14/18 11:36 Dose: 100 mg Ursodiol (Actigal -) 300 mg PO BID [facility] Last Admin: 10/14/18 22:11 Dose: 300 mg ASSESSMENT AND PLAN: Acute on Chronic Hypoxic and Hypercapneic Respiratory Failure r/o Pneumonia r/o UTI Septic Shock Acute Kidney Injury Hyperkalemia Thrombocytopenia Advanced Multiple Sclerosis Functional Quadriplegia HTN Hypothyroidism - continue antibiotics per ID - f/u cultures - IVF - monitor urine output, creatinine - replete lytes - taper stress dose - monitor CBC, coags - trach collar as tolerated - trach collar with speaking valve once liberated - DVT/GI prophylaxis - ok for floor once off pressor x 12hrs critical care time spent in reviewing chart, evaluating patient and formulating plan 35 min Liset [facility] [id number]
--- NOTE | 2018-10-15 08:54 | PN ---
Progress Note, Physician History of Present Illness: awake alert c/o left face pain--neuralgia - Current Medication List Current Medications: Active Medications Acetaminophen (Tylenol -) 650 mg PO Q6H PRN PRN Reason: FEVER Last Admin: 10/13/18 22:09 Dose: 650 mg Chlorhexidine Gluconate (Hibiclens For Decolonization -) 1 applic TP HS [facility] Last Admin: 10/14/18 21:34 Dose: 1 applic Clonazepam (Klonopin -) 0.5 mg PO BID [facility] Last Admin: 10/14/18 23:59 Dose: 0.5 mg Heparin Sodium (Porcine) (Heparin -) 5,000 unit SQ BID [facility] Last Admin: 10/14/18 21:31 Dose: 5,000 unit Hydrocortisone Sodium Succinate (Solu-Cortef -) 50 mg IVPUSH BID [facility] Meropenem 1 gm/ Dextrose 100 mls @ 200 mls/hr IVPB Q8H [facility] Last Admin: 10/15/18 05:47 Dose: 200 mls/hr Lactated Ringer's (Lactated Ringers Solution) 1,000 ml in 1,000 mls @ 150 mls/ hr IV ASDIR [facility] Last Admin: 10/14/18 18:13 Dose: 150 mls/hr Loratadine (Claritin -) 10 mg PO DAILY [facility] Last Admin: 10/14/18 10:35 Dose: 10 mg Mirtazapine (Remeron -) 7.5 mg PO HS [facility] Last Admin: 10/14/18 21:33 Dose: 7.5 mg Mupirocin (Bactroban Ointment (For Decolonization) -) 1 applic NS BID [facility] Stop: 10/17/18 21:59 Last Admin: 10/14/18 21:35 Dose: 1 applic Pregabalin 100 mg/ Pregabalin (50 mg) 150 mg PO BID [facility] Last Admin: 10/14/18 21:32 Dose: 150 mg Sertraline HCl (Zoloft -) 100 mg PO DAILY [facility] Last Admin: 10/14/18 11:36 Dose: 100 mg Ursodiol (Actigal -) 300 mg PO BID [facility] Last Admin: 10/14/18 22:11 Dose: 300 mg - Objective Vital Signs: Vital Signs Temperature 97.2 F L 10/15/18 04:00 Pulse Rate 49 L 10/15/18 08:27 Respiratory Rate 14 10/15/18 08:27 Blood Pressure 141/73 10/15/18 06:00 O2 Sat by Pulse Oximetry (%) 100 10/15/18 08:27 Cardiovascular: Yes: Regular Rate and Rhythm Respiratory: Yes: Mechanically Ventilated, Rhonchi Gastrointestinal: Yes: Normal Bowel Sounds, Soft Neurological: Yes: Alert, Oriented Labs: CBC, BMP 10/14/18 05:20 10/14/18 08:45 INR, PTT INR 1.13 (0.83-1.09) H 10/12/18 11:30 Problem List - Problems (1) Pneumonia Assessment/Plan: Orders 10/12/18 20:00 Meropenem [Merrem (Restricted To Id) -] 1 gm Dextrose 5%-Water [Dextrose 5% Water Minibag 100ML] 100 ml IVPB Q8H follow cxr nebs Code(s): J18.9 - PNEUMONIA, UNSPECIFIED ORGANISM Qualifiers: Pneumonia type: due to unspecified organism Laterality: right Lung location: lower lobe of lung Qualified Code(s): J18.1 - Lobar pneumonia, unspecified organism (2) Chronic hypercapnic respiratory failure Assessment/Plan: vent setting per pulm Code(s): J96.12 - CHRONIC RESPIRATORY FAILURE WITH HYPERCAPNIA (3) Functional 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 (4) Neurogenic bladder Assessment/Plan: uro on board Code(s): N31.9 - NEUROMUSCULAR DYSFUNCTION OF BLADDER, UNSPECIFIED (5) Sepsis Assessment/Plan: abx per id Microbiology Laboratory Tests 10/12/18 10/13/18 10/14/18 11:30 05:35 05:20 WBC 20.1 H 31.8 H* 27.7 H 10/13/18 01:50 Sputum - Endotrachea Suction/Ventilator Gram Stain - Final 10/13/18 01:50 Sputum - Endotrachea Suction/Ventilator Sputum Culture - Final Pseudomonas Aeruginosa 10/12/18 17:20 Urine - Urine - Catheterized Urine Culture - Preliminary Kluyvera Ascorbata Lactose Fermenting Neg Bacilli#2 10/12/18 11:30 Blood - Peripheral Venous Blood Culture - Final Escherichia Coli 10/12/18 11:30 Blood - Peripheral Venous Blood Culture - Preliminary NO GROWTH OBTAINED AFTER 48 HOURS, INCUBATION TO CONTINUE FOR 3 DAYS. 10/12/18 17:20 Urine For Antigen Detection Legionella Antigen - Final 10/12/18 17:20 Urine For Antigen Detection Streptococcus pneumoniae Antigen (M - Final 10/12/18 11:30 Urine - Urine - Catheterized Urine Culture - Final Contaminated: Please Repeat Code(s): A41.9 - SEPSIS, UNSPECIFIED ORGANISM Qualifiers: Sepsis type: sepsis due to unspecified organism Qualified Code(s): A41.9 - Sepsis, unspecified organism (6) Urinary tract infection Assessment/Plan: as above Code(s): N39.0 - URINARY TRACT INFECTION, SITE NOT SPECIFIED Qualifiers: (7) Trigeminal neuralgia Assessment/Plan: -On Lyrica Code(s): G50.0 - TRIGEMINAL NEURALGIA (8) Anemia Assessment/Plan: hgb dropping monitor closely Code(s): D64.9 - ANEMIA, UNSPECIFIED Qualifiers: Other causes of anemia: other cause, not classified
--- NOTE | 2018-10-15 08:55 | CON.GU ---
Consult Consult Specialty:: urology Reason for Consultation:: right hydronephrosis/uti - History of Present Illness Chief Complaint: right hydronephrosis with uti History of Present Illness: Patient is a 53 year old female with advanced MS and is a functional quadraplegic in the ICU for pneumonia. The patient has a uti by UA with 2 organisms grown out of urine culture. The patient is unable to feel any pain in terms of renal colic however denies nausea and vomiting and is afebrile. Patient with perera draining adequate volume and is clear. 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 No: Asthma, Bronchitis , Cancer, COPD, Pulmonary Embolus, Pulmonary Fibrosis, Sleep Apnea Gastrointestinal: Yes: Constipation (chronic) Hepatobiliary: Yes: Cholelithiasis Renal/: Yes: Neurogenic Bladder ( neurogenic bladder, chronic perera catheter) ...LMP: 06/07/12 Infectious Disease: Yes: Other (pneumonia, uti treated by urologist) Musculoskeletal: Yes: Other (Quadraplegia) Dermatology: Yes: Other (chronic decubitus followed by wound care) Additional Medical History: trigeminal neuralgia, baclofen pump. chronic decubitus followed by wound care. neurogenic bladder, chronic perera catheter. IR placed G tube - Past Surgical History Past Surgical History: Yes: Colonoscopy - Alcohol/Substance Use Hx Alcohol Use: No History of Substance Use: reports: None - Smoking History Smoking history: Current every day smoker Have you smoked in the past 12 months: No Aproximately how many cigarettes per day: 0 - Social History Usual Living Arrangement: With Parent (mother) ADL: Support Services History of Recent Travel: No Home Medications - Allergies Allergies/Adverse Reactions: Allergies Allergy/AdvReac Type Severity Reaction Status Date / Time chloral hydrate Allergy Intermediate Rash Verified 10/12/18 12:02 [Chloral Hydrate] azathioprine [From Imuran] Allergy Rash Verified 10/12/18 12:02 azathioprine sodium Allergy Rash Verified 10/12/18 12:02 [From Imuran] adhesive tape AdvReac Severe sensitivity Verified 10/12/18 12:02 to glue adhesive AdvReac Unknown Verified 10/12/18 12:02 - Home Medications Home Medications: Ambulatory Orders Amlodipine Besylate [Norvasc -] 5 mg PO DAILY 10/12/18 Clonazepam [Klonopin] 0.5 mg PO BID 10/12/18 Hydralazine HCl 50 mg PO TID 10/12/18 Levocetirizine Dihydrochloride 5 mg PO DAILY 10/12/18 Loratadine 10 mg PO DAILY 10/12/18 Metoprolol Tartrate [Lopressor -] 50 mg PO BID 10/12/18 Mirtazapine 7.5 mg PO HS 10/12/18 Pregabalin [Lyrica -] 150 mg PO BID 10/12/18 Sertraline HCl [Zoloft] 100 mg PO DAILY 10/12/18 Sodium Chloride 1,000 mg PO BID 10/12/18 Ursodiol [Actigal] 300 mg PO BID 10/12/18 Family Disease History - Family Disease History Family Disease History: Diabetes: Sister, Other: Father (GB surgery), Mother Physical Exam- Vital Signs: Vital Signs Temperature 97.2 F L 10/15/18 04:00 Pulse Rate 49 L 10/15/18 08:27 Respiratory Rate 14 10/15/18 08:27 Blood Pressure 141/73 10/15/18 06:00 O2 Sat by Pulse Oximetry (%) 100 10/15/18 08:27 Constitutional: Yes: Calm Eyes: Yes: WNL, Conjunctiva Clear, EOM Intact HENT: Yes: WNL, Atraumatic, Normocephalic Neck: Yes: WNL, Supple, Trachea Midline Cardiovascular: Yes: Regular Rate and Rhythm Gastrointestinal: Yes: Soft Renal/: Yes: WNL Kidneys: Yes: WNL Pelvis: Yes: Bladder Non Palpable Labs: CBC, BMP 10/14/18 05:20 10/14/18 08:45 Imaging - Results Cat Scan: Report Reviewed Ultrasound: Report Reviewed MRI: Report Reviewed (mild hydronephrosis of right kidney noted) Assessment/Plan imp pneumonia uti right hydronephrosis with normal renal function plan observe hydro as it is minimal as it is most likely secondary to uti follow renal function continue antibiotics as per ID
[2018-10-15] MEDS ORDERED: PREGABALIN 50 MG CAPSULE ONE ×2 (10:14→20:05)
[2018-10-15] MEDS ORDERED: PREGABALIN 100 MG CAPSULE ONE (10:15)
[2018-10-15] MEDS ORDERED: PT OWN MED DRAWER 7, Y5N ONE (10:16)
[2018-10-15] MEDS: URSODIOL 300 MG CAPSULE PO SCH ×2 (10:23→21:08)
[2018-10-15] MEDS: clonazePAM 0.5 MG TABLET PO SCH ×2 (10:24→21:08)
[2018-10-15] MEDS: PREGABALIN 100 MG, PREGABALIN 50 MG PO SCH ×2 (10:25→21:09)
[2018-10-15] MEDS: LORATADINE 10 MG TABLET PO SCH (10:26)
[2018-10-15] MEDS: SERTRALINE HCL 50 MG TABLET (FP) PO SCH (10:26)
[2018-10-15] MEDS: HEPARIN NA (PORCINE) 5,000 UNITS/ML 1ML VIAL SQ SCH ×2 (10:29→21:11)
[2018-10-15] MEDS: MUPIROCIN 2% TOPICAL OINTMENT FOR DECOLONIZATION NS SCH ×2 (10:29→22:00)
[2018-10-15] MEDS: LACTATED RINGERS SOLUTION 1,000 ML/1,000 ML INFUS.BAG IV SCH ×3 (10:55→21:10)
--- NOTE | 2018-10-15 11:32 | PN ---
Progress Note, Physician History of Present Illness: AWAKE, ALERT IN BED C/O FACIAL PAIN NO C/O CHEST PAIN/ DYSPNEA LOW GRADE TEMP WBC REMAINS ELEVATED, PLT LOW - Current Medication List Current Medications: Active Medications Acetaminophen (Tylenol -) 650 mg PO Q6H PRN PRN Reason: FEVER Last Admin: 10/13/18 22:09 Dose: 650 mg Chlorhexidine Gluconate (Hibiclens For Decolonization -) 1 applic TP HS [facility] Last Admin: 10/14/18 21:34 Dose: 1 applic Clonazepam (Klonopin -) 0.5 mg PO BID [facility] Last Admin: 10/15/18 10:24 Dose: 0.5 mg Heparin Sodium (Porcine) (Heparin -) 5,000 unit SQ BID [facility] Last Admin: 10/15/18 10:29 Dose: 5,000 unit Hydrocortisone Sodium Succinate (Solu-Cortef -) 50 mg IVPUSH BID [facility] Last Admin: 10/15/18 10:27 Dose: 50 mg Meropenem 1 gm/ Dextrose 100 mls @ 200 mls/hr IVPB Q8H [facility] Last Admin: 10/15/18 05:47 Dose: 200 mls/hr Lactated Ringer's (Lactated Ringers Solution) 1,000 ml in 1,000 mls @ 150 mls/ hr IV ASDIR [facility] Last Admin: 10/15/18 10:55 Dose: 150 mls/hr Loratadine (Claritin -) 10 mg PO DAILY [facility] Last Admin: 10/15/18 10:26 Dose: 10 mg Mirtazapine (Remeron -) 7.5 mg PO HS [facility] Last Admin: 10/14/18 21:33 Dose: 7.5 mg Mupirocin (Bactroban Ointment (For Decolonization) -) 1 applic NS BID [facility] Stop: 10/17/18 21:59 Last Admin: 10/15/18 10:29 Dose: 1 applic Pregabalin 100 mg/ Pregabalin (50 mg) 150 mg PO BID [facility] Last Admin: 10/15/18 10:25 Dose: 150 mg Sertraline HCl (Zoloft -) 100 mg PO DAILY [facility] Last Admin: 10/15/18 10:26 Dose: 100 mg Ursodiol (Actigal -) 300 mg PO BID [facility] Last Admin: 10/15/18 10:23 Dose: 300 mg - Objective Vital Signs: Vital Signs Temperature 97.2 F L 10/15/18 04:00 Pulse Rate 86 10/15/18 10:00 Respiratory Rate 19 10/15/18 10:00 Blood Pressure 131/75 10/15/18 10:00 O2 Sat by Pulse Oximetry (%) 100 10/15/18 08:27 Constitutional: Yes: No Distress Eyes: Yes: Conjunctiva Clear Cardiovascular: Yes: Regular Rate and Rhythm, S1, S2 Respiratory: Yes: Diminished Gastrointestinal: Yes: Normal Bowel Sounds, Soft. No: Tenderness Edema: Yes Labs: INR, PTT INR 1.13 (0.83-1.09) H 10/12/18 11:30 Assessment/Plan UTI/ SEPSIS SECONDARY TO UTI E COLI CHRONIC RESP FAILURE LEUKOCYTOSIS THROMBOCYTOPENIA ADVANCED MS + SPUTUM C/S PSEUDOMONAS SUBSTITUTE CEFTRIAXONE 2GM QD
[2018-10-15 12:00] LABS: BASO % 0.2 % (0-2.0); EOS % 0.2 % (0-4.5); HEMATOCRIT 22.8 % (32.4-45.2); HEMOGLOBIN 7.5 GM/dL (10.7-15.3); LYMPH % 5.2 % (8-40); MCH 31.6 pg (25.7-33.7); MCHC 32.9 g/dl (32.0-36.0); MEAN CELL VOLUME 96.2 fl (80-96); MEAN PLT VOLUME 10.7 fl (7.5-11.1); MONO % 2.1 % (3.8-10.2); NEUT % 92.3 % (42.8-82.8); PLATELET COUNT 61 K/MM3 (134-434); RBC 2.37 M/mm3 (3.60-5.2); RDW 17.3 % (11.6-15.6); WHITE BLOOD COUNT 14.2 K/mm3 (4.0-10.0)
[2018-10-15 12:02] LABS: ALBUMIN 1.7 g/dl (3.4-5.0); BILIRUBIN,TOTAL 0.2 mg/dL (0.2-1); BLOOD UREA NITROGEN 35.5 mg/dL (7-18); CALCIUM 8.5 mg/dL (8.5-10.1); CREATININE 0.6 mg/dL (0.55-1.3); POTASSIUM 3.6 mmol/L (3.5-5.1); TOT PROT 5.9 g/dl (6.4-8.2)
[2018-10-15] MEDS: CEFTRIAXONE 2 GM in DEXTROSE 5%-WATER 100 ML IVPB SCH (12:16)
[2018-10-15 14:34] LABS: ANISOCYTOSIS 1+; MACROCYTOSIS 1+; PLATELET ESTIMATE DECREASED; TARGET CELLS 1+
[2018-10-15] MEDS: ACETAMINOPHEN 325 MG TABLET (FP) PO PRN (15:56)
--- NOTE | 2018-10-15 21:00 | PN ---
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 s/p sepsis urine source s/p jessica h/o siadh Current Medications Acetaminophen (Tylenol -) 650 mg PO Q6H PRN PRN Reason: FEVER Last Admin: 10/15/18 15:56 Dose: 650 mg Chlorhexidine Gluconate (Hibiclens For Decolonization -) 1 applic TP HS [facility] Last Admin: 10/14/18 21:34 Dose: 1 applic Clonazepam (Klonopin -) 0.5 mg PO BID [facility] Last Admin: 10/15/18 10:24 Dose: 0.5 mg Heparin Sodium (Porcine) (Heparin -) 5,000 unit SQ BID [facility] Last Admin: 10/15/18 10:29 Dose: 5,000 unit Hydrocortisone Sodium Succinate (Solu-Cortef -) 50 mg IVPUSH BID [facility] Last Admin: 10/15/18 10:27 Dose: 50 mg Lactated Ringer's (Lactated Ringers Solution) 1,000 ml in 1,000 mls @ 150 mls/ hr IV ASDIR [facility] Last Admin: 10/15/18 16:00 Dose: 150 mls/hr Ceftriaxone Sodium 2 gm/ (Dextrose) 100 mls @ 200 mls/hr IVPB DAILY [facility]; Protocol Last Admin: 10/15/18 12:16 Dose: 200 mls/hr Loratadine (Claritin -) 10 mg PO DAILY [facility] Last Admin: 10/15/18 10:26 Dose: 10 mg Mirtazapine (Remeron -) 7.5 mg PO HS [facility] Last Admin: 10/14/18 21:33 Dose: 7.5 mg Mupirocin (Bactroban Ointment (For Decolonization) -) 1 applic NS BID [facility] Stop: 10/17/18 21:59 Last Admin: 10/15/18 10:29 Dose: 1 applic Pregabalin 100 mg/ Pregabalin (50 mg) 150 mg PO BID [facility] Last Admin: 10/15/18 10:25 Dose: 150 mg Sertraline HCl (Zoloft -) 100 mg PO DAILY [facility] Last Admin: 10/15/18 10:26 Dose: 100 mg Ursodiol (Actigal -) 300 mg PO BID [facility] Last Admin: 10/15/18 10:23 Dose: 300 mg Last Vital Signs Temp Pulse Resp BP Pulse Ox 94.2 F L 58 L 14 109/64 99 10/15/18 18:22 10/15/18 19:37 10/15/18 19:37 10/15/18 19:37 10/15/18 16:23 CBC, BMP 10/15/18 06:30 10/15/18 06:30 Prerenal less marked jessica improving Plan- same rx
[2018-10-15] MEDS: MIRTAZAPINE 15 MG TABLET (FP) PO SCH (21:08)
[2018-10-15] MEDS: CHLORHEXIDINE GLUCONATE 4% CLEANSER FOR DECOLONIZATION TP SCH (22:00)
[2018-10-16] MEDS: ACETAMINOPHEN 325 MG TABLET (FP) PO PRN ×2 (04:36→19:32)
[2018-10-16 06:32] LABS: BASO % 0.1 % (0-2.0); EOS % 3.7 % (0-4.5); HEMATOCRIT 22.1 % (32.4-45.2); HEMOGLOBIN 7.3 GM/dL (10.7-15.3); LYMPH % 5.2 % (8-40); MCH 32.4 pg (25.7-33.7); MONO % 2.2 % (3.8-10.2); NEUT % 88.8 % (42.8-82.8); PLATELET COUNT 64 K/MM3 (134-434); RBC 2.25 M/mm3 (3.60-5.2); RDW 17.3 % (11.6-15.6); WHITE BLOOD COUNT 8.7 K/mm3 (4.0-10.0)
--- NOTE | 2018-10-16 06:56 | PN ---
Progress Note (short form) - Note Progress Note: Pulm/CCM SUBJECTIVE: Pt seen and examined in the ICU. 24Hr: -h/H downtrending but no signs of bleeding, likely dilution -remains off pressors, BP low but basically baseline for pt. -miri and hypothermic (normal for her) OBJECTIVE: Vital Signs Temp 96.2 F L 10/16/18 04:00 Pulse 44 L 10/16/18 06:00 Resp 14 10/16/18 06:00 BP 123/57 L 10/16/18 06:00 Pulse Ox 99 10/15/18 16:23 Intake & Output 10/15/18 10/15/18 10/16/18 11:59 23:59 11:59 Intake Total 8208 750 3240 Output Total 800 1100 700 Balance 491 -150 590 Weight 76.884 kg Intake: IV 7041 018 5670 LACTATED RINGERS SOLUTION 4045 801 0936 1,000 ml In 1,000 ml @ 150 mls/hr IV ASDIR [facility] Rx#:[id number] Levophed - 8,000 Mcg In 21 D5w - 492 ml @ 10 MCG/MIN 37.5 mls/hr IV TITR [facility] Rx#:[id number] IVPB 100 100 Tube Irrigant 120 250 240 Output: Urine 800 1100 700 Raza 800 1100 700 Other: Voiding Method Indwelling Catheter Indwelling Catheter Gen: vented, awake Heart: RRR Lung: diminished bilaterally Abd: soft, nontender Ext: no edema Derm: long standing decub CBC, BMP 10/16/18 05:20 Active Medications Acetaminophen (Tylenol -) 650 mg PO Q6H PRN PRN Reason: FEVER Last Admin: 10/16/18 04:36 Dose: 650 mg Chlorhexidine Gluconate (Hibiclens For Decolonization -) 1 applic TP HS [facility] Last Admin: 10/15/18 22:00 Dose: 1 applic Clonazepam (Klonopin -) 0.5 mg PO BID [facility] Last Admin: 10/15/18 21:08 Dose: 0.5 mg Heparin Sodium (Porcine) (Heparin -) 5,000 unit SQ BID [facility] Last Admin: 10/15/18 21:11 Dose: 5,000 unit Hydrocortisone Sodium Succinate (Solu-Cortef -) 50 mg IVPUSH BID [facility] Last Admin: 10/15/18 21:07 Dose: 50 mg Lactated Ringer's (Lactated Ringers Solution) 1,000 ml in 1,000 mls @ 150 mls/ hr IV ASDIR [facility] Last Admin: 10/15/18 21:10 Dose: 150 mls/hr Ceftriaxone Sodium 2 gm/ (Dextrose) 100 mls @ 200 mls/hr IVPB DAILY [facility]; Protocol Last Admin: 10/15/18 12:16 Dose: 200 mls/hr Loratadine (Claritin -) 10 mg PO DAILY [facility] Last Admin: 10/15/18 10:26 Dose: 10 mg Mirtazapine (Remeron -) 7.5 mg PO HS [facility] Last Admin: 10/15/18 21:08 Dose: 7.5 mg Mupirocin (Bactroban Ointment (For Decolonization) -) 1 applic NS BID [facility] Stop: 10/17/18 21:59 Last Admin: 10/15/18 22:00 Dose: 1 applic Pregabalin 100 mg/ Pregabalin (50 mg) 150 mg PO BID [facility] Last Admin: 10/15/18 21:09 Dose: 150 mg Sertraline HCl (Zoloft -) 100 mg PO DAILY [facility] Last Admin: 10/15/18 10:26 Dose: 100 mg Ursodiol (Actigal -) 300 mg PO BID [facility] Last Admin: 10/15/18 21:08 Dose: 300 mg ASSESSMENT AND PLAN: Acute on Chronic Hypoxic and Hypercapneic Respiratory Failure r/o Pneumonia r/o UTI Septic Shock Acute Kidney Injury Hyperkalemia Thrombocytopenia Advanced Multiple Sclerosis Functional Quadriplegia HTN Hypothyroidism - continue antibiotics per ID - f/u cultures - IVF - monitor urine output, creatinine - replete lytes - taper stress dose - monitor CBC, coags - trach collar as tolerated - trach collar with speaking valve once liberated - DVT/GI prophylaxis - ok for floor critical care time spent in reviewing chart, evaluating patient and formulating plan 35 min [id number]
[2018-10-16 07:06] LABS: ALBUMIN 1.5 g/dl (3.4-5.0); BILIRUBIN,TOTAL 0.2 mg/dL (0.2-1); BLOOD UREA NITROGEN 29.9 mg/dL (7-18); CALCIUM 8.3 mg/dL (8.5-10.1); CREATININE 0.5 mg/dL (0.55-1.3); POTASSIUM 3.8 mmol/L (3.5-5.1); TOT PROT 5.4 g/dl (6.4-8.2)
[2018-10-16] MEDS ORDERED: PREGABALIN 50 MG CAPSULE ONE ×2 (08:10→21:36)
[2018-10-16] MEDS ORDERED: DEXTROSE 5%-WATER 100 ML IVPB ONE (08:11)
[2018-10-16] MEDS ORDERED: PREGABALIN 100 MG CAPSULE ONE ×2 (08:11→21:37)
[2018-10-16] MEDS ORDERED: PT OWN MED DRAWER 7, Y5N ONE ×2 (08:11→09:34)
[2018-10-16] MEDS: LACTATED RINGERS SOLUTION 1,000 ML/1,000 ML INFUS.BAG IV SCH (08:47)
[2018-10-16] MEDS: URSODIOL 300 MG CAPSULE PO SCH ×2 (09:44→21:45)
[2018-10-16] MEDS: CEFTRIAXONE 2 GM in DEXTROSE 5%-WATER 100 ML IVPB SCH (09:44)
[2018-10-16] MEDS: HYDROCORTISONE SOD SUCCINATE 100 MG/2 ML VIAL IVPUSH SCH ×2 (09:44→21:46)
[2018-10-16] MEDS: SERTRALINE HCL 50 MG TABLET (FP) PO SCH (09:45)
[2018-10-16] MEDS: PREGABALIN 100 MG, PREGABALIN 50 MG PO SCH ×2 (09:46→21:44)
[2018-10-16] MEDS: LORATADINE 10 MG TABLET PO SCH (09:46)
[2018-10-16] MEDS: clonazePAM 0.5 MG TABLET PO SCH ×2 (09:46→21:43)
[2018-10-16] MEDS: HEPARIN NA (PORCINE) 5,000 UNITS/ML 1ML VIAL SQ SCH ×2 (09:46→21:43)
--- NOTE | 2018-10-16 09:56 | PN ---
Progress Note, Physician - Current Medication List Current Medications: Active Medications Acetaminophen (Tylenol -) 650 mg PO Q6H PRN PRN Reason: FEVER Last Admin: 10/16/18 04:36 Dose: 650 mg Chlorhexidine Gluconate (Hibiclens For Decolonization -) 1 applic TP HS [facility] Last Admin: 10/15/18 22:00 Dose: 1 applic Clonazepam (Klonopin -) 0.5 mg PO BID [facility] Last Admin: 10/16/18 09:46 Dose: 0.5 mg Heparin Sodium (Porcine) (Heparin -) 5,000 unit SQ BID [facility] Last Admin: 10/16/18 09:46 Dose: 5,000 unit Hydrocortisone Sodium Succinate (Solu-Cortef -) 25 mg IVPUSH BID [facility] Last Admin: 10/16/18 09:44 Dose: 25 mg Lactated Ringer's (Lactated Ringers Solution) 1,000 ml in 1,000 mls @ 150 mls/ hr IV ASDIR [facility] Last Admin: 10/16/18 08:47 Dose: 150 mls/hr Ceftriaxone Sodium 2 gm/ (Dextrose) 100 mls @ 200 mls/hr IVPB DAILY [facility]; Protocol Last Admin: 10/16/18 09:44 Dose: 200 mls/hr Loratadine (Claritin -) 10 mg PO DAILY [facility] Last Admin: 10/16/18 09:46 Dose: 10 mg Mirtazapine (Remeron -) 7.5 mg PO HS [facility] Last Admin: 10/15/18 21:08 Dose: 7.5 mg Mupirocin (Bactroban Ointment (For Decolonization) -) 1 applic NS BID [facility] Stop: 10/17/18 21:59 Last Admin: 10/15/18 22:00 Dose: 1 applic Pregabalin 100 mg/ Pregabalin (50 mg) 150 mg PO BID [facility] Last Admin: 10/16/18 09:46 Dose: 150 mg Sertraline HCl (Zoloft -) 100 mg PO DAILY [facility] Last Admin: 10/16/18 09:45 Dose: 100 mg Ursodiol (Actigal -) 300 mg PO BID [facility] Last Admin: 10/16/18 09:44 Dose: 300 mg - Objective Vital Signs: Vital Signs Temperature 96.2 F L 10/16/18 04:00 Pulse Rate 51 L 10/16/18 08:13 Respiratory Rate 14 10/16/18 08:13 Blood Pressure 129/71 10/16/18 08:00 O2 Sat by Pulse Oximetry (%) 99 10/16/18 08:13 Cardiovascular: Yes: S1, S2 Respiratory: Yes: Mechanically Ventilated Gastrointestinal: Yes: Normal Bowel Sounds, Soft Labs: CBC, BMP 10/16/18 05:20 10/16/18 05:20 INR, PTT INR 1.13 (0.83-1.09) H 10/12/18 11:30 Problem List - Problems (1) Pneumonia Assessment/Plan: Orders 10/12/18 20:00 Meropenem [Merrem (Restricted To Id) -] 1 gm Dextrose 5%-Water [Dextrose 5% Water Minibag 100ML] 100 ml IVPB Q8H follow cxr nebs Code(s): J18.9 - PNEUMONIA, UNSPECIFIED ORGANISM Qualifiers: Pneumonia type: due to unspecified organism Laterality: right Lung location: lower lobe of lung Qualified Code(s): J18.1 - Lobar pneumonia, unspecified organism (2) Chronic hypercapnic respiratory failure Assessment/Plan: vent setting per pulm Code(s): J96.12 - CHRONIC RESPIRATORY FAILURE WITH HYPERCAPNIA (3) Functional 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 (4) Neurogenic bladder Assessment/Plan: uro on board Code(s): N31.9 - NEUROMUSCULAR DYSFUNCTION OF BLADDER, UNSPECIFIED (5) Sepsis Assessment/Plan: abx per id Microbiology Laboratory Tests 10/12/18 10/13/18 10/14/18 11:30 05:35 05:20 WBC 20.1 H 31.8 H* 27.7 H 10/13/18 01:50 Sputum - Endotrachea Suction/Ventilator Gram Stain - Final 10/13/18 01:50 Sputum - Endotrachea Suction/Ventilator Sputum Culture - Final Pseudomonas Aeruginosa 10/12/18 17:20 Urine - Urine - Catheterized Urine Culture - Preliminary Kluyvera Ascorbata Lactose Fermenting Neg Bacilli#2 10/12/18 11:30 Blood - Peripheral Venous Blood Culture - Final Escherichia Coli 10/12/18 11:30 Blood - Peripheral Venous Blood Culture - Preliminary NO GROWTH OBTAINED AFTER 48 HOURS, INCUBATION TO CONTINUE FOR 3 DAYS. 10/12/18 17:20 Urine For Antigen Detection Legionella Antigen - Final 10/12/18 17:20 Urine For Antigen Detection Streptococcus pneumoniae Antigen (M - Final 10/12/18 11:30 Urine - Urine - Catheterized Urine Culture - Final Contaminated: Please Repeat Code(s): A41.9 - SEPSIS, UNSPECIFIED ORGANISM Qualifiers: Sepsis type: sepsis due to unspecified organism Qualified Code(s): A41.9 - Sepsis, unspecified organism (6) Urinary tract infection Assessment/Plan: as above Code(s): N39.0 - URINARY TRACT INFECTION, SITE NOT SPECIFIED Qualifiers: (7) Trigeminal neuralgia Assessment/Plan: -On Lyrica Code(s): G50.0 - TRIGEMINAL NEURALGIA (8) Anemia Assessment/Plan: hgb dropping monitor closely Code(s): D64.9 - ANEMIA, UNSPECIFIED Qualifiers: Other causes of anemia: other cause, not classified
[2018-10-16] MEDS: MUPIROCIN 2% TOPICAL OINTMENT FOR DECOLONIZATION NS SCH ×2 (10:40→21:46)
--- NOTE | 2018-10-16 11:31 | PN ---
Progress Note, Physician History of Present Illness: AWAKE, RESPONSIVE NO ACUTE DISTRESS AFEBRILE/ HYPOTHERMIC WBC WNL PLT REMAIN LOW - Current Medication List Current Medications: Active Medications Acetaminophen (Tylenol -) 650 mg PO Q6H PRN PRN Reason: FEVER Last Admin: 10/16/18 04:36 Dose: 650 mg Chlorhexidine Gluconate (Hibiclens For Decolonization -) 1 applic TP HS [facility] Last Admin: 10/15/18 22:00 Dose: 1 applic Clonazepam (Klonopin -) 0.5 mg PO BID [facility] Last Admin: 10/16/18 09:46 Dose: 0.5 mg Heparin Sodium (Porcine) (Heparin -) 5,000 unit SQ BID [facility] Last Admin: 10/16/18 09:46 Dose: 5,000 unit Hydrocortisone Sodium Succinate (Solu-Cortef -) 25 mg IVPUSH BID [facility] Last Admin: 10/16/18 09:44 Dose: 25 mg Lactated Ringer's (Lactated Ringers Solution) 1,000 ml in 1,000 mls @ 150 mls/ hr IV ASDIR [facility] Last Admin: 10/16/18 08:47 Dose: 150 mls/hr Ceftriaxone Sodium 2 gm/ (Dextrose) 100 mls @ 200 mls/hr IVPB DAILY [facility]; Protocol Last Admin: 10/16/18 09:44 Dose: 200 mls/hr Loratadine (Claritin -) 10 mg PO DAILY [facility] Last Admin: 10/16/18 09:46 Dose: 10 mg Mirtazapine (Remeron -) 7.5 mg PO HS [facility] Last Admin: 10/15/18 21:08 Dose: 7.5 mg Mupirocin (Bactroban Ointment (For Decolonization) -) 1 applic NS BID [facility] Stop: 10/17/18 21:59 Last Admin: 10/15/18 22:00 Dose: 1 applic Pregabalin 100 mg/ Pregabalin (50 mg) 150 mg PO BID [facility] Last Admin: 10/16/18 09:46 Dose: 150 mg Sertraline HCl (Zoloft -) 100 mg PO DAILY [facility] Last Admin: 10/16/18 09:45 Dose: 100 mg Ursodiol (Actigal -) 300 mg PO BID [facility] Last Admin: 10/16/18 09:44 Dose: 300 mg - Objective Vital Signs: Vital Signs Temperature 96.2 F L 10/16/18 04:00 Pulse Rate 114 H 10/16/18 10:40 Respiratory Rate 16 10/16/18 10:39 Blood Pressure 129/71 10/16/18 08:00 O2 Sat by Pulse Oximetry (%) 99 10/16/18 10:40 Constitutional: Yes: No Distress Eyes: Yes: Conjunctiva Clear Cardiovascular: Yes: Regular Rate and Rhythm, S1, S2 Respiratory: Yes: Diminished Gastrointestinal: Yes: Normal Bowel Sounds, Soft, Other (DISTENDED, TYMPANITIC) . No: Tenderness Edema: Yes Labs: CBC, BMP 10/16/18 05:20 10/16/18 05:20 INR, PTT INR 1.13 (0.83-1.09) H 10/12/18 11:30 Assessment/Plan UTI/ SEPSIS SECONDARY TO UTI E COLI CHRONIC RESP FAILURE LEUKOCYTOSIS RESOLVED THROMBOCYTOPENIA ADVANCED MS + SPUTUM C/S PSEUDOMONAS ? COLONIZER CONTINUE CEFTRIAXONE 2GM QD
[2018-10-16] MEDS ORDERED: PREGABALIN 75 MG CAPSULE PO ONE (11:48)
[2018-10-16] MEDS ORDERED: DOCUSATE NA 100 MG/10 ML UNIT-DOSE CUPS PO PRN (18:06)
[2018-10-16] MEDS: MIRTAZAPINE 15 MG TABLET (FP) PO SCH (21:43)
[2018-10-16] MEDS: CHLORHEXIDINE GLUCONATE 4% CLEANSER FOR DECOLONIZATION TP SCH (21:46)
[2018-10-16] MEDS ORDERED: SENNOSIDES 8.8 MG/5 ML BULK BOTTLE PO SCH (22:00)
--- NOTE | 2018-10-16 22:47 | PN ---
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 s/p sepsis urine source s/p jessica h/o siadh Current Medications Acetaminophen (Tylenol -) 650 mg PO Q6H PRN PRN Reason: FEVER Last Admin: 10/16/18 19:32 Dose: 650 mg Chlorhexidine Gluconate (Hibiclens For Decolonization -) 1 applic TP HS [facility] Last Admin: 10/16/18 21:46 Dose: 1 applic Clonazepam (Klonopin -) 0.5 mg PO BID [facility] Last Admin: 10/16/18 21:43 Dose: 0.5 mg Docusate Sodium (Colace Liquid -) 100 mg PO DAILY PRN PRN Reason: CONSTIPATION Heparin Sodium (Porcine) (Heparin -) 5,000 unit SQ BID [facility] Last Admin: 10/16/18 21:43 Dose: 5,000 unit Hydrocortisone Sodium Succinate (Solu-Cortef -) 25 mg IVPUSH BID [facility] Last Admin: 10/16/18 21:46 Dose: 25 mg Ceftriaxone Sodium 2 gm/ (Dextrose) 100 mls @ 200 mls/hr IVPB DAILY [facility]; Protocol Last Admin: 10/16/18 09:44 Dose: 200 mls/hr Loratadine (Claritin -) 10 mg PO DAILY [facility] Last Admin: 10/16/18 09:46 Dose: 10 mg Mirtazapine (Remeron -) 7.5 mg PO HS [facility] Last Admin: 10/16/18 21:43 Dose: 7.5 mg Mupirocin (Bactroban Ointment (For Decolonization) -) 1 applic NS BID [facility] Stop: 10/17/18 21:59 Last Admin: 10/16/18 21:46 Dose: 1 applic Pregabalin 100 mg/ Pregabalin (50 mg) 150 mg PO BID [facility] Last Admin: 10/16/18 21:44 Dose: 150 mg Senna (Senna Oral Solution -) 8.8 mg PO HS [facility] Sertraline HCl (Zoloft -) 100 mg PO DAILY [facility] Last Admin: 10/16/18 09:45 Dose: 100 mg Ursodiol (Actigal -) 300 mg PO BID [facility] Last Admin: 10/16/18 21:45 Dose: 300 mg Last Vital Signs Temp Pulse Resp BP Pulse Ox 96.9 F L 53 L 14 141/71 98 10/16/18 18:00 10/16/18 21:47 10/16/18 21:38 10/16/18 18:00 10/16/18 21:47 lungs clear heart reg abd soft nontender ext no edema CBC, BMP 10/16/18 05:20 10/16/18 05:20 CBC, BMP 10/15/18 06:30 10/15/18 06:30 Prerenal less marked jessica continues to improve Hypernatremia worse today Plan- repeat BMP to check serum sodium in am
[2018-10-17 06:35] LABS: HEMATOCRIT 24.7 % (32.4-45.2); HEMOGLOBIN 8.1 GM/dL (10.7-15.3); MCH 32.4 pg (25.7-33.7); MCHC 32.8 g/dl (32.0-36.0); MEAN CELL VOLUME 98.6 fl (80-96); PLATELET COUNT 81 K/MM3 (134-434); RBC 2.51 M/mm3 (3.60-5.2); RDW 17.4 % (11.6-15.6); WHITE BLOOD COUNT 6.8 K/mm3 (4.0-10.0)
[2018-10-17 07:01] LABS: BLOOD UREA NITROGEN 29.3 mg/dL (7-18); CALCIUM 8.4 mg/dL (8.5-10.1); CREATININE 0.5 mg/dL (0.55-1.3); POTASSIUM 3.4 mmol/L (3.5-5.1)
[2018-10-17] MEDS ORDERED: POTASSIUM CHLORIDE ORAL LIQUID 20 MEQ/15 ML GT ONE (07:15)
[2018-10-17] MEDS ORDERED: DEXTROSE 5%-WATER 100 ML IVPB ONE (07:32)
--- NOTE | 2018-10-17 07:33 | PN ---
Progress Note, Physician - Current Medication List Current Medications: Active Medications Acetaminophen (Tylenol -) 650 mg PO Q6H PRN PRN Reason: FEVER Last Admin: 10/16/18 19:32 Dose: 650 mg Chlorhexidine Gluconate (Hibiclens For Decolonization -) 1 applic TP HS [facility] Last Admin: 10/16/18 21:46 Dose: 1 applic Clonazepam (Klonopin -) 0.5 mg PO BID [facility] Last Admin: 10/16/18 21:43 Dose: 0.5 mg Docusate Sodium (Colace Liquid -) 100 mg PO DAILY PRN PRN Reason: CONSTIPATION Heparin Sodium (Porcine) (Heparin -) 5,000 unit SQ BID [facility] Last Admin: 10/16/18 21:43 Dose: 5,000 unit Hydrocortisone Sodium Succinate (Solu-Cortef -) 25 mg IVPUSH BID [facility] Last Admin: 10/16/18 21:46 Dose: 25 mg Ceftriaxone Sodium 2 gm/ (Dextrose) 100 mls @ 200 mls/hr IVPB DAILY [facility]; Protocol Last Admin: 10/16/18 09:44 Dose: 200 mls/hr Loratadine (Claritin -) 10 mg PO DAILY [facility] Last Admin: 10/16/18 09:46 Dose: 10 mg Mirtazapine (Remeron -) 7.5 mg PO HS [facility] Last Admin: 10/16/18 21:43 Dose: 7.5 mg Mupirocin (Bactroban Ointment (For Decolonization) -) 1 applic NS BID [facility] Stop: 10/17/18 21:59 Last Admin: 10/16/18 21:46 Dose: 1 applic Pregabalin 100 mg/ Pregabalin (50 mg) 150 mg PO BID [facility] Last Admin: 10/16/18 21:44 Dose: 150 mg Senna (Senna Oral Solution -) 8.8 mg PO HS [facility] Last Admin: 10/16/18 22:30 Dose: 8.8 mg Sertraline HCl (Zoloft -) 100 mg PO DAILY [facility] Last Admin: 10/16/18 09:45 Dose: 100 mg Ursodiol (Actigal -) 300 mg PO BID [facility] Last Admin: 10/16/18 21:45 Dose: 300 mg - Objective Vital Signs: Vital Signs Temperature 98.4 F 10/17/18 06:00 Pulse Rate 69 10/17/18 06:10 Respiratory Rate 10/17/18 06:10 Blood Pressure 114/52 L 10/17/18 06:00 O2 Sat by Pulse Oximetry (%) 98 10/17/18 06:10 Cardiovascular: Yes: S1, S2 Respiratory: Yes: Regular, CTA Bilaterally Gastrointestinal: Yes: Normal Bowel Sounds, Soft. No: Tenderness Labs: CBC, BMP 10/17/18 05:30 10/17/18 05:30 INR, PTT INR 1.13 (0.83-1.09) H 10/12/18 11:30 Problem List - Problems (1) Pneumonia Assessment/Plan: Orders on Rocephin follow cxr nebs Code(s): J18.9 - PNEUMONIA, UNSPECIFIED ORGANISM Qualifiers: Pneumonia type: due to unspecified organism Laterality: right Lung location: lower lobe of lung Qualified Code(s): J18.1 - Lobar pneumonia, unspecified organism (2) Chronic hypercapnic respiratory failure Assessment/Plan: vent setting per pulm Code(s): J96.12 - CHRONIC RESPIRATORY FAILURE WITH HYPERCAPNIA (3) Functional 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 (4) Neurogenic bladder Assessment/Plan: uro on board Code(s): N31.9 - NEUROMUSCULAR DYSFUNCTION OF BLADDER, UNSPECIFIED (5) Sepsis Assessment/Plan: abx per id 10/13/18 01:50 Sputum - Endotrachea Suction/Ventilator Gram Stain - Final 10/13/18 01:50 Sputum - Endotrachea Suction/Ventilator Sputum Culture - Final Pseudomonas Aeruginosa 10/12/18 17:20 Urine - Urine - Catheterized Urine Culture - Preliminary Kluyvera Ascorbata Lactose Fermenting Neg Bacilli#2 10/12/18 11:30 Blood - Peripheral Venous Blood Culture - Final Escherichia Coli 10/12/18 11:30 Blood - Peripheral Venous Blood Culture - Preliminary NO GROWTH OBTAINED AFTER 48 HOURS, INCUBATION TO CONTINUE FOR 3 DAYS. 10/12/18 17:20 Urine For Antigen Detection Legionella Antigen - Final 10/12/18 17:20 Urine For Antigen Detection Streptococcus pneumoniae Antigen (M - Final 10/12/18 11:30 Urine - Urine - Catheterized Urine Culture - Final Contaminated: Please Repeat Code(s): A41.9 - SEPSIS, UNSPECIFIED ORGANISM Qualifiers: Sepsis type: sepsis due to unspecified organism Qualified Code(s): A41.9 - Sepsis, unspecified organism (6) Urinary tract infection Assessment/Plan: as above Code(s): N39.0 - URINARY TRACT INFECTION, SITE NOT SPECIFIED Qualifiers: (7) Trigeminal neuralgia Assessment/Plan: -On Lyrica Code(s): G50.0 - TRIGEMINAL NEURALGIA (8) Anemia Assessment/Plan: hgb dropping monitor closely Code(s): D64.9 - ANEMIA, UNSPECIFIED Qualifiers: Other causes of anemia: other cause, not classified
[2018-10-17] MEDS ORDERED: PT OWN MED DRAWER 7, Y5N ONE ×2 (09:00→21:33)
[2018-10-17] MEDS: CEFTRIAXONE 2 GM in DEXTROSE 5%-WATER 100 ML IVPB SCH (09:14)
[2018-10-17] MEDS: HYDROCORTISONE SOD SUCCINATE 100 MG/2 ML VIAL IVPUSH SCH ×2 (09:15→22:28)
[2018-10-17] MEDS: URSODIOL 300 MG CAPSULE PO SCH ×2 (09:17→22:27)
[2018-10-17] MEDS: clonazePAM 0.5 MG TABLET PO SCH ×2 (09:17→22:25)
[2018-10-17] MEDS: HEPARIN NA (PORCINE) 5,000 UNITS/ML 1ML VIAL SQ SCH ×2 (09:17→22:27)
[2018-10-17] MEDS: SERTRALINE HCL 50 MG TABLET (FP) PO SCH (09:17)
[2018-10-17] MEDS: LORATADINE 10 MG TABLET PO SCH (09:17)
[2018-10-17] MEDS ORDERED: PREGABALIN 50 MG CAPSULE ONE ×2 (09:19→21:31)
[2018-10-17] MEDS ORDERED: PREGABALIN 100 MG CAPSULE ONE ×2 (09:19→21:32)
[2018-10-17] MEDS: PREGABALIN 100 MG, PREGABALIN 50 MG PO SCH ×2 (09:20→22:26)
[2018-10-17] MEDS: MUPIROCIN 2% TOPICAL OINTMENT FOR DECOLONIZATION NS SCH (11:23)
--- NOTE | 2018-10-17 11:30 | PN ---
Physical Exam: SUBJECTIVE: Patient seen and examined at the bedside. Denies any acute complaints of chest pain, sob, abd pain, n/v, numbness, tingling, headaches, facial pain, fever, chills. States she continues to have some pain in the back. Is asking for water. OBJECTIVE: Vital Signs Period Temp Pulse Resp BP Sys/Morillo Pulse Ox Last 24 Hr 96.9 F-98.4 F 45-84 10-19 92-143/42-81 95-100 GENERAL: The patient is awake, alert, and fully oriented, in no acute distress. HEAD: Normal with no signs of trauma. EYES: PERRL, extraocular movements intact, sclera anicteric, conjunctiva clear ENT: oropharynx clear without exudates, moist mucous membranes NECK: trach collar in place. LUNGS: Breath sounds equal, clear to auscultation bilaterally, decreased at the bases, no wheezes, no crackles, no accessory muscle use. HEART: Regular rate and rhythm, S1, S2 without murmur or rub. ABDOMEN: Soft, nontender, nondistended, normoactive bowel sounds, no guarding, no rebound, no masses. EXTREMITIES: 1+ pulses, warm, well-perfused, no edema. NEUROLOGICAL: Cranial nerves II through XII grossly intact. Hoarse speech, quadriplegia. PSYCH: Normal mood, normal affect. SKIN: Gluteal stage 4 ulcers Laboratory Results - last 24 hr 10/17/18 10/17/18 05:30 05:30 WBC 6.8 RBC 2.51 L Hgb 8.1 L Hct 24.7 L MCV 98.6 H MCH 32.4 MCHC 32.8 RDW 17.4 H Plt Count 81 L D MPV 11.0 Sodium 148 H Potassium 3.4 L Chloride 113 H Carbon Dioxide 32 Anion Gap 4 L BUN 29.3 H Creatinine 0.5 L Est GFR (CKD-EPI)AfAm 127.17 Est GFR (CKD-EPI)NonAf 109.72 Random Glucose 130 H Calcium 8.4 L Active Medications Generic Name Dose Route Start Last Admin Trade Name Freq PRN Reason Stop Dose Admin Acetaminophen 650 mg 10/13/18 21:15 10/16/18 19:32 Tylenol - PO 650 mg Q6H PRN Administration FEVER Chlorhexidine Gluconate 1 applic 10/12/18 22:00 10/16/18 21:46 Hibiclens For Decolonization - TP 1 applic HS [facility] Administration Clonazepam 0.5 mg 10/14/18 23:45 10/17/18 09:17 Klonopin - PO 0.5 mg BID [facility] Administration Docusate Sodium 100 mg 10/16/18 18:06 Colace Liquid - PO DAILY PRN CONSTIPATION Heparin Sodium (Porcine) 5,000 unit 10/12/18 22:00 10/17/18 09:17 Heparin - SQ 5,000 unit BID [facility] Administration Hydrocortisone Sodium Succinate 25 mg 10/16/18 07:58 10/17/18 09:15 Solu-Cortef - IVPUSH 25 mg BID [facility] Administration Ceftriaxone Sodium 2 gm/ 100 mls @ 200 mls/hr 10/15/18 11:45 10/17/18 09:14 Dextrose IVPB 200 mls/hr DAILY [facility] Administration Protocol Loratadine 10 mg 10/13/18 10:00 10/17/18 09:17 Claritin - PO 10 mg DAILY [facility] Administration Mirtazapine 7.5 mg 10/12/18 22:00 10/16/18 21:43 Remeron - PO 7.5 mg HS [facility] Administration Mupirocin 1 applic 10/12/18 22:00 10/16/18 21:46 Bactroban Ointment (For Decolonization) - NS 10/17/18 21:59 1 applic BID [facility] Administration Pregabalin 100 mg/ Pregabalin 150 mg 10/12/18 22:00 10/17/18 09:20 50 mg PO 150 mg BID [facility] Administration Senna 8.8 mg 10/16/18 22:00 10/16/18 22:30 Senna Oral Solution - PO 8.8 mg HS [facility] Administration Sertraline HCl 100 mg 10/13/18 10:00 10/17/18 09:17 Zoloft - PO 100 mg DAILY [facility] Administration Ursodiol 300 mg 10/12/18 22:00 10/17/18 09:17 Actigal - PO 300 mg BID [facility] Administration ASSESSMENT/PLAN: Geetha Wood is a 53 year old female with a 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, 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, Chronic Hyponatremia, Hypothyroidism, Trigeminal Neuralgia, Recurrent UTI's (indwelling Perera) who was admitted with sepsis likely secondary to UTI Septic Shock secondary to urinary tract source Pneumonia Acute Hypoxic Hypercapneic Respiratory Failure Anemia Hypothyroidism Multiple Sclerosis Trigeminal Neuralgia NEUROLOGIC - on baclofen pump - alert and oriented - Tylenol 1000mg IV for pain - continue home pregabalin CARDIOLOGY - off all vasopressor medication - has low BP at baseline due to autonomic dysfunction - hold home hypertensives - d/c CVP monitoring - avoid volume overload RESPIRATORY - on trach collar with ventilator - monitor off vent, use as needed - continue on antibiotics for possible PNA - taper hydrocortisone 25mg bid RENAL - hx of hyponatremia, continue to monitor - MANNY, CRE 0.5 today, resolved - monitor off hydration - continue to trend CRE GASTROINTESTINAL - RUQ showing gallstones, trace pericholecystic fluid, dilated common bile duct - GI and surgery consulted, no acute interventions planned GENITOURINARY - chronic indwelling perera - likely contributor to infection - US showing mild to moderate renal hydronephrosis INFECTIOUS DISEASE - today WBC 6.8, remains afebrile - UA showing 3+ Leukocyte Esterase, 657 Bacteria, 1007 WBC - on ceftriaxone for likely UTI - cover for pneumonia organisms - Dr. Pradhan consulted, recs appreciated ENDOCRINE - no acute issues HEMATOLOGY - anemia, stable - thrombocytopenia likely from sepsis, improved MUSCULOSKELETAL - on baclofen pump for spasticity PSYCHIATRY - continue home zoloft and remeron F/E/N - monitor off fluids - continue to monitor electrolytes and replete as necessary - continue enteral feeds and pleasure feeds, increase free water to 40ml in setting of hypernatremia LINES - RIJ inserted 10/12, remove once peripheral access established PROPHYLAXIS - heparin 5000 units subq bid CODE - full code DISPO - stable for transfer to Med-surg on ventilator floor CASE DISCUSSED WITH DR. JOSÉ LUIS ALEGRIA DO - PGY-1 INTERNAL MEDICINE Visit type - Emergency Visit Emergency Visit: No - New Patient This patient is new to me today: No - Critical Care Critical Care patient: No
--- NOTE | 2018-10-17 11:45 | PN ---
Progress Note (short form) - Note Progress Note: Renal follow up for MANNY Pt seen and examined in the ICU awake and alert on Vent via trach Vital Signs Temperature 97 F L 10/17/18 10:00 Pulse Rate 84 10/17/18 11:05 Respiratory Rate 14 10/17/18 10:00 Blood Pressure 135/81 10/17/18 10:00 O2 Sat by Pulse Oximetry (%) 95 10/17/18 11:05 Intake & Output 10/14/18 10/15/18 10/16/18 10/17/18 23:59 23:59 23:59 23:59 Intake Total 5342 2241 3770 875 Output Total 4500 1900 2200 400 Balance 925 637 3629 475 Weight 76.884 kg 80.422 kg 80.24 kg NAD on vent via trach RRR Dec BS, no rales or wheeze soft, NT/ND no LE edema, clubbing or cyanosis perera in place CBC, BMP 10/17/18 05:30 10/17/18 05:30 Current Medications Acetaminophen (Tylenol -) 650 mg PO Q6H PRN PRN Reason: FEVER Last Admin: 10/16/18 19:32 Dose: 650 mg Chlorhexidine Gluconate (Hibiclens For Decolonization -) 1 applic TP HS [facility] Last Admin: 10/16/18 21:46 Dose: 1 applic Clonazepam (Klonopin -) 0.5 mg PO BID [facility] Last Admin: 10/17/18 09:17 Dose: 0.5 mg Docusate Sodium (Colace Liquid -) 100 mg PO DAILY PRN PRN Reason: CONSTIPATION Heparin Sodium (Porcine) (Heparin -) 5,000 unit SQ BID [facility] Last Admin: 10/17/18 09:17 Dose: 5,000 unit Hydrocortisone Sodium Succinate (Solu-Cortef -) 25 mg IVPUSH BID [facility] Last Admin: 10/17/18 09:15 Dose: 25 mg Ceftriaxone Sodium 2 gm/ (Dextrose) 100 mls @ 200 mls/hr IVPB DAILY [facility]; Protocol Last Admin: 10/17/18 09:14 Dose: 200 mls/hr Loratadine (Claritin -) 10 mg PO DAILY [facility] Last Admin: 10/17/18 09:17 Dose: 10 mg Mirtazapine (Remeron -) 7.5 mg PO HS [facility] Last Admin: 10/16/18 21:43 Dose: 7.5 mg Mupirocin (Bactroban Ointment (For Decolonization) -) 1 applic NS BID [facility] Stop: 10/17/18 21:59 Last Admin: 10/16/18 21:46 Dose: 1 applic Pregabalin 100 mg/ Pregabalin (50 mg) 150 mg PO BID [facility] Last Admin: 10/17/18 09:20 Dose: 150 mg Senna (Senna Oral Solution -) 8.8 mg PO HS [facility] Last Admin: 10/16/18 22:30 Dose: 8.8 mg Sertraline HCl (Zoloft -) 100 mg PO DAILY [facility] Last Admin: 10/17/18 09:17 Dose: 100 mg Ursodiol (Actigal -) 300 mg PO BID [facility] Last Admin: 10/17/18 09:17 Dose: 300 mg 53 year old woman with history of multiple sclerosis s/p trach on vent as needed, hypothyroidism, recurrent UTI's who presented from home with AMS and found to have Sepsis syndrome with MANNY. #MANNY in setting of sepsis/renal hypoprofusion vs obstruction (occluded Perera) now improved #Hyperkalemia in setting of MANNY (improved) #Sepsis r/o PNA vs. UTI #Multiple sclerosis #Hypothyroidism #Hx of SIADH Renal function now improved to baseline Hemodynamically stable at this time Empiric antibiotics pending cultures Increase free water with tube feeds for now as serum na is > 145 continue nephro tube feeds continue supportive care Trend renal function and electrolytes daily will follow up as needed Tyshawn Doe DO
--- NOTE | 2018-10-17 11:54 | PN ---
Teaching Attending Note Name of Resident: Yariel Pruett ATTENDING PHYSICIAN STATEMENT I saw and evaluated the patient. I reviewed the resident's note and discussed the case with the resident. I agree with the resident's findings and plan as documented. SUBJECTIVE: Patient seen and examined in the ICU. Awake and alert on AC Mode of vent. No acute events overnight. Denies CP or SOB. Intake & Output 10/14/18 10/15/18 10/16/18 10/17/18 23:59 23:59 23:59 23:59 Intake Total 5342 2241 3770 875 Output Total 4500 1900 2200 400 Balance 893 001 1172 475 Weight 169 lb 8 oz 177 lb 4.8 oz 176 lb 14.4 oz Last Vital Signs Temp Pulse Resp BP Pulse Ox 97 F L 84 14 135/81 95 10/17/18 10:00 10/17/18 11:05 10/17/18 10:00 10/17/18 10:00 10/17/18 11:05 Active Medications Acetaminophen (Tylenol -) 650 mg PO Q6H PRN PRN Reason: FEVER Last Admin: 10/16/18 19:32 Dose: 650 mg Chlorhexidine Gluconate (Hibiclens For Decolonization -) 1 applic TP HS [facility] Last Admin: 10/16/18 21:46 Dose: 1 applic Clonazepam (Klonopin -) 0.5 mg PO BID [facility] Last Admin: 10/17/18 09:17 Dose: 0.5 mg Docusate Sodium (Colace Liquid -) 100 mg PO DAILY PRN PRN Reason: CONSTIPATION Heparin Sodium (Porcine) (Heparin -) 5,000 unit SQ BID [facility] Last Admin: 10/17/18 09:17 Dose: 5,000 unit Hydrocortisone Sodium Succinate (Solu-Cortef -) 25 mg IVPUSH BID [facility] Last Admin: 10/17/18 09:15 Dose: 25 mg Ceftriaxone Sodium 2 gm/ (Dextrose) 100 mls @ 200 mls/hr IVPB DAILY [facility]; Protocol Last Admin: 10/17/18 09:14 Dose: 200 mls/hr Loratadine (Claritin -) 10 mg PO DAILY [facility] Last Admin: 10/17/18 09:17 Dose: 10 mg Mirtazapine (Remeron -) 7.5 mg PO HS [facility] Last Admin: 10/16/18 21:43 Dose: 7.5 mg Mupirocin (Bactroban Ointment (For Decolonization) -) 1 applic NS BID [facility] Stop: 10/17/18 21:59 Last Admin: 10/16/18 21:46 Dose: 1 applic Pregabalin 100 mg/ Pregabalin (50 mg) 150 mg PO BID [facility] Last Admin: 10/17/18 09:20 Dose: 150 mg Senna (Senna Oral Solution -) 8.8 mg PO HS [facility] Last Admin: 10/16/18 22:30 Dose: 8.8 mg Sertraline HCl (Zoloft -) 100 mg PO DAILY [facility] Last Admin: 10/17/18 09:17 Dose: 100 mg Ursodiol (Actigal -) 300 mg PO BID [facility] Last Admin: 10/17/18 09:17 Dose: 300 mg OBJECTIVE: GENERAL: awake, alert, oriented, in no acute distress, vented. HEAD: Normal with no signs of trauma. EYES: sclera anicteric, conjunctiva clear ENT: Trach intact, moist mucous membranes NECK: trach collar in place. LUNGS: vented, diminished at the bases HEART: Regular rate and rhythm, S1, S2 without murmur or rub. ABDOMEN: Soft, nontender, nondistended, normoactive bowel sounds, no guarding, no rebound, no masses. EXTREMITIES: 1+ pulses, warm, well-perfused, no edema. NEUROLOGICAL: pre-existing deficit PSYCH: Normal mood, normal affect. SKIN: Gluteal stage 4 ulcers Laboratory Results - last 24 hr 10/17/18 10/17/18 05:30 05:30 WBC 6.8 RBC 2.51 L Hgb 8.1 L Hct 24.7 L MCV 98.6 H MCH 32.4 MCHC 32.8 RDW 17.4 H Plt Count 81 L D MPV 11.0 Sodium 148 H Potassium 3.4 L Chloride 113 H Carbon Dioxide 32 Anion Gap 4 L BUN 29.3 H Creatinine 0.5 L Est GFR (CKD-EPI)AfAm 127.17 Est GFR (CKD-EPI)NonAf 109.72 Random Glucose 130 H Calcium 8.4 L ASSESSMENT/PLAN: Resolved Septic Shock secondary to urinary tract source Pneumonia Acute Hypoxic Hypercapneic Respiratory Failure Anemia Hypothyroidism Multiple Sclerosis Trigeminal Neuralgia Gallstones ABX per ID Trial of Trach collar as tolerated VTE prophylaxis Enteral feeds / pleasure feeds D/C TLC Vent floor Dr Fox
[2018-10-17 12:29] VITALS: BMI 24.5
--- NOTE | 2018-10-17 12:45 | PN ---
Progress Note (short form) - Note Progress Note: alert off pressors conversant constipation Vital Signs Period Temp Pulse Resp BP Sys/Morillo Pulse Ox Last 24 Hr 96.9 F-98.4 F 45-84 10-19 92-148/42-81 95-100 cor-rrr lungs decreased bs at bases abd firm,+GT ext +edema legs and hands CBC, BMP 10/17/18 05:30 10/17/18 05:30 Microbiology 10/12/18 11:30 Blood - Peripheral Venous Blood Culture - Final NO GROWTH AFTER 5 DAYS INCUBATION 10/12/18 17:20 Urine - Urine - Catheterized Urine Culture - Final Kluyvera Ascorbata Klebsiella Pneumoniae 10/13/18 01:50 Sputum - Endotrachea Suction/Ventilator Gram Stain - Final 10/13/18 01:50 Sputum - Endotrachea Suction/Ventilator Sputum Culture - Final Pseudomonas Aeruginosa 10/12/18 11:30 Blood - Peripheral Venous Blood Culture - Final Escherichia Coli 10/12/18 17:20 Urine For Antigen Detection Legionella Antigen - Final 10/12/18 17:20 Urine For Antigen Detection Streptococcus pneumoniae Antigen (M - Final 10/12/18 11:30 Urine - Urine - Catheterized Urine Culture - Final Contaminated: Please Repeat a/p ecoli bacteremia continue rocephin day #5 thrombocytopenia persisting, will trend, should improved with resolving sepsis MS with chronic trach/peg/perera sacral ulcer- local care Problem List - Problems (1) Septic shock Code(s): A41.9 - SEPSIS, UNSPECIFIED ORGANISM; R65.21 - SEVERE SEPSIS WITH SEPTIC SHOCK (2) Acute renal insufficiency Code(s): N28.9 - DISORDER OF KIDNEY AND URETER, UNSPECIFIED (3) Functional 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 (4) Sacral decubitus ulcer, stage IV Code(s): L89.154 - PRESSURE ULCER OF SACRAL REGION, STAGE 4
--- NOTE | 2018-10-17 13:16 | CONSULT ---
Admitting History and Physical - Primary Care Physician PCP: Anne Lopez - Admission History of Present Illness: Resolved Septic Shock secondary to urinary tract source Pneumonia Acute Hypoxic Hypercapneic Respiratory Failure Anemia Hypothyroidism Multiple Sclerosis Trigeminal Neuralgia Gallstones NPO, asking for PO trials, Ensure. Tolerated sip of water from Nursing. 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 No: Asthma, Bronchitis , Cancer, COPD, Pulmonary Embolus, Pulmonary Fibrosis, Sleep Apnea Gastrointestinal: Yes: Constipation (chronic) Hepatobiliary: Yes: Cholelithiasis Renal/: Yes: Neurogenic Bladder ( neurogenic bladder, chronic perera catheter) ...LMP: 06/07/12 Heme/Onc: Yes: Anemia Infectious Disease: Yes: Other (pneumonia, uti treated by urologist) Musculoskeletal: Yes: Other (Quadraplegia) Dermatology: Yes: Other (chronic decubitus followed by wound care) - Past Surgical History Past Surgical History: Yes: Colonoscopy - Smoking History Smoking history: Current every day smoker Have you smoked in the past 12 months: No Aproximately how many cigarettes per day: 0 - Alcohol/Substance Use Hx Alcohol Use: No History of Substance Use: reports: None - Social History ADL: Support Services History of Recent Travel: No History - Admission Reason For Visit: PNEUMONIA - Diagnostics Modified Barium Swallow: Report Reviewed (08/22 mbs much improved.) - General Mental Status: Alert and Oriented, Awake and Alert, Able to Follow Commands Attention: Intact Ability to Follow Directions: Good Head/Neck Control: Poor, Needs Assist - Hearing Hearing: Normal Speech Evaluation - Communication Primary Language: RUSSIAN Oral Expression Ability: Yes: Mild Impairment (PMV, reduced volume) - Speech Production Able to Make Needs Known: Yes: Mildly Impaired Intelligibility: Yes: Mildly Impaired - Speech Characteristics Voice Loudness: Mildly Soft/Quiet Voice Pitch: Yes: Normal Voice Phonatory-based Quality: Yes: Dysphonia (intermittent) Articulation: Yes: Precise - Language/Auditory Comprehension Follows: Yes: 2 Stage Simple Commands Observation: Comprehends Conversational Speech: Yes - Language/Verbal Expression Able to Communicate Wants and Needs: Yes: Mildly Impaired - Swallow Evaluation/Bedside Assessment Current Nutritional Intake: NPO Dentition: Yes: Adequate Facial Symmetry at Rest: Symmetrical Facial Symmetry on Retraction: Symmetrical Sensation: Normal (Left trigeminal neuralgia) Pucker Lips: Normal, Weak Smile: Normal, Weak Lingual Movement: Symmetric Lingual Speed of Movement: Reduced Lingual Movement Strgth Against Opposition: Reduced Laryngeal Movement: Able to Palpate, Labored,delay initiation Bolus Size: Small Labial Seal: WFL Oral Prep Time: WFL A-P Transit: WFL Timing of Swallow: Delayed Coughing/Throat Clear: No Change in Voice: No Recommendations - Speech Evaluation, Impression/Plan Impression: Overtly tolerating careful trials of puree in thin/nectar sips - Dysphagia Impressions/Plan Dysphagia Impressions: Mild Impairment, Risk of Aspiration *Silent aspiration: cannot be R/O at bedside Dysphagia Treatment Plan: Small Bites, Chin Tuck/Down, Trial Feedings, Facilitative Feeding, Safe Rate, 1/2 tsp. at a time, Elevate HOB during feed - Recommendations Diet Consistency: Dysphagia Pureed, 1 - 2 Soft Items (ask pt re preferences) Liquids: Thin Liquids Supplement: Ensure, Magic Cup, Ensure Pudding
[2018-10-17] MEDS: ACETAMINOPHEN 325 MG TABLET (FP) PO PRN (18:09)
[2018-10-17] MEDS: SENNOSIDES 8.8 MG/5 ML BULK BOTTLE PO SCH (22:25)
[2018-10-17] MEDS: MIRTAZAPINE 15 MG TABLET (FP) PO SCH (22:26)
[2018-10-18 07:49] LABS: BASO % 0.2 % (0-2.0); EOS % 2.8 % (0-4.5); HEMATOCRIT 24.6 % (32.4-45.2); LYMPH % 8.8 % (8-40); MCH 31.8 pg (25.7-33.7); MCHC 32.5 g/dl (32.0-36.0); MEAN CELL VOLUME 97.9 fl (80-96); MEAN PLT VOLUME 10.3 fl (7.5-11.1); MONO % 5.1 % (3.8-10.2); NEUT % 83.1 % (42.8-82.8); PLATELET COUNT 93 K/MM3 (134-434); RBC 2.52 M/mm3 (3.60-5.2); RDW 17.2 % (11.6-15.6); WHITE BLOOD COUNT 8.4 K/mm3 (4.0-10.0)
[2018-10-18 08:05] LABS: ALBUMIN 1.7 g/dl (3.4-5.0); ALK PHOS 158 U/L (45-117); ANION GAP 4 MMOL/L (8-16); BILIRUBIN,TOTAL < 0.1 mg/dL (0.2-1); BLOOD UREA NITROGEN 27.9 mg/dL (7-18); CALCIUM 8.5 mg/dL (8.5-10.1); CHLORIDE 113 mmol/L (98-107); CO2 32 mmol/L (21-32); CREATININE 0.5 mg/dL (0.55-1.3); GLUCOSE,RANDOM 104 mg/dL (74-106); PHOSPHOROUS 3.6 mg/dL (2.5-4.9); POTASSIUM 3.7 mmol/L (3.5-5.1); SGOT/AST 13 U/L (15-37); SGPT/ALT 15 U/L (13-61); SODIUM 148 mmol/L (136-145); TOT PROT 5.9 g/dl (6.4-8.2)
[2018-10-18] MEDS ORDERED: PREGABALIN 50 MG CAPSULE ONE ×2 (09:57→21:00)
[2018-10-18] MEDS ORDERED: PREGABALIN 100 MG CAPSULE ONE ×2 (09:58→21:01)
[2018-10-18] MEDS ORDERED: DEXTROSE 5%-WATER 100 ML IVPB ONE (09:59)
[2018-10-18] MEDS: SERTRALINE HCL 50 MG TABLET (FP) PO SCH (10:54)
[2018-10-18] MEDS: LORATADINE 10 MG TABLET PO SCH (10:54)
[2018-10-18] MEDS: CEFTRIAXONE 2 GM in DEXTROSE 5%-WATER 100 ML IVPB SCH (10:54)
[2018-10-18] MEDS: clonazePAM 0.5 MG TABLET PO SCH ×2 (10:54→21:05)
[2018-10-18] MEDS: URSODIOL 300 MG CAPSULE PO SCH ×2 (10:55→21:04)
[2018-10-18] MEDS: HYDROCORTISONE SOD SUCCINATE 100 MG/2 ML VIAL IVPUSH SCH ×2 (10:55→21:06)
[2018-10-18] MEDS: HEPARIN NA (PORCINE) 5,000 UNITS/ML 1ML VIAL SQ SCH ×2 (10:55→21:05)
[2018-10-18] MEDS: PREGABALIN 100 MG, PREGABALIN 50 MG PO SCH ×2 (10:56→21:05)
--- NOTE | 2018-10-18 11:33 | PN ---
Progress Note, Physician Chief Complaint: Sepsis UTI Pneumonia acute on chronic resp failure History of Present Illness: NAD On mech vent Mother at bedside pt lethargic diffuse edema noted - Current Medication List Current Medications: Active Medications Acetaminophen (Tylenol -) 650 mg PO Q6H PRN PRN Reason: FEVER Last Admin: 10/17/18 18:09 Dose: 650 mg Clonazepam (Klonopin -) 0.5 mg PO BID [facility] Last Admin: 10/18/18 10:54 Dose: 0.5 mg Docusate Sodium (Colace Liquid -) 100 mg PO DAILY PRN PRN Reason: CONSTIPATION Heparin Sodium (Porcine) (Heparin -) 5,000 unit SQ BID [facility] Last Admin: 10/18/18 10:55 Dose: 5,000 unit Hydrocortisone Sodium Succinate (Solu-Cortef -) 25 mg IVPUSH BID [facility] Last Admin: 10/18/18 10:55 Dose: 25 mg Ceftriaxone Sodium 2 gm/ (Dextrose) 100 mls @ 200 mls/hr IVPB DAILY [facility]; Protocol Last Admin: 10/18/18 10:54 Dose: 200 mls/hr Loratadine (Claritin -) 10 mg PO DAILY [facility] Last Admin: 10/18/18 10:54 Dose: 10 mg Mirtazapine (Remeron -) 7.5 mg PO HS [facility] Last Admin: 10/17/18 22:26 Dose: 7.5 mg Pregabalin 100 mg/ Pregabalin (50 mg) 150 mg PO BID [facility] Last Admin: 10/18/18 10:56 Dose: 150 mg Senna (Senna Oral Solution -) 8.8 mg PO HS [facility] Last Admin: 10/17/18 22:25 Dose: 8.8 mg Sertraline HCl (Zoloft -) 100 mg PO DAILY [facility] Last Admin: 10/18/18 10:54 Dose: 100 mg Ursodiol (Actigal -) 300 mg PO BID [facility] Last Admin: 10/18/18 10:55 Dose: 300 mg - Objective Vital Signs: Vital Signs Temperature 99.0 F 10/18/18 06:21 Pulse Rate 105 H 10/18/18 06:21 Respiratory Rate 14 10/18/18 08:30 Blood Pressure 169/74 10/18/18 06:21 O2 Sat by Pulse Oximetry (%) 98 10/17/18 18:20 Constitutional: Yes: No Distress, Calm, Thin Cardiovascular: Yes: Regular Rate and Rhythm Respiratory: Yes: Mechanically Ventilated Gastrointestinal: Yes: Normal Bowel Sounds, Soft Genitourinary: Yes: Raza Present Musculoskeletal: Yes: Muscle Weakness Extremities: Yes: WNL Edema: Yes (diffuse) Peripheral Pulses WNL: Yes Neurological: Yes: Lethargy Labs: CBC, BMP 10/18/18 06:45 10/18/18 06:45 INR, PTT INR 1.13 (0.83-1.09) H 10/12/18 11:30 Problem List - Problems (1) Pneumonia Assessment/Plan: -ID consult -Pulmonary consult -IV abx -bronchodilators -Solucortef -afebrile -no leukocytosis -LA normal Code(s): J18.9 - PNEUMONIA, UNSPECIFIED ORGANISM Qualifiers: Pneumonia type: due to unspecified organism Laterality: right Lung location: lower lobe of lung Qualified Code(s): J18.1 - Lobar pneumonia, unspecified organism (2) Altered mental status Assessment/Plan: -improved -Likely 2/2 to Urosepsis Code(s): R41.82 - ALTERED MENTAL STATUS, UNSPECIFIED (3) Anemia Assessment/Plan: -chronic, stable -anemia of chronic disease Code(s): D64.9 - ANEMIA, UNSPECIFIED Qualifiers: Other causes of anemia: other cause, not classified (4) Chronic respiratory failure Assessment/Plan: -mech vent -Pulmonary consult -Trach collar as tolerated Code(s): J96.10 - CHRONIC RESPIRATORY FAILURE, UNSP W HYPOXIA OR HYPERCAPNIA (5) Constipation Assessment/Plan: -On colace+ Senna -Fleet enema today Code(s): K59.00 - CONSTIPATION, UNSPECIFIED (6) Edema Assessment/Plan: -Added prosource -IV lasix 40 mg once Code(s): R60.9 - EDEMA, UNSPECIFIED (7) Functional 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 (8) Metabolic encephalopathy Code(s): G93.41 - METABOLIC ENCEPHALOPATHY (9) Neurogenic bladder Assessment/Plan: -Raza catheter -Seen by urology Code(s): N31.9 - NEUROMUSCULAR DYSFUNCTION OF BLADDER, UNSPECIFIED (10) Sepsis Assessment/Plan: -ID consult -Pulmonary consult -IV abx -bronchodilators -Solucortef -afebrile -no leukocytosis -LA normal Code(s): A41.9 - SEPSIS, UNSPECIFIED ORGANISM Qualifiers: Sepsis type: sepsis due to unspecified organism Qualified Code(s): A41.9 - Sepsis, unspecified organism (11) Urinary tract infection Assessment/Plan: -IV abx -ID consult -afebrile -Cultures: Microbiology 10/12/18 11:30 Blood - Peripheral Venous Blood Culture - Final NO GROWTH AFTER 5 DAYS INCUBATION 10/12/18 17:20 Urine - Urine - Catheterized Urine Culture - Final Kluyvera Ascorbata Klebsiella Pneumoniae 10/13/18 01:50 Sputum - Endotrachea Suction/Ventilator Gram Stain - Final 10/13/18 01:50 Sputum - Endotrachea Suction/Ventilator Sputum Culture - Final Pseudomonas Aeruginosa 10/12/18 11:30 Blood - Peripheral Venous Blood Culture - Final Escherichia Coli 10/12/18 17:20 Urine For Antigen Detection Legionella Antigen - Final 10/12/18 17:20 Urine For Antigen Detection Streptococcus pneumoniae Antigen (M - Final 10/12/18 11:30 Urine - Urine - Catheterized Urine Culture - Final Contaminated: Please Repeat Code(s): N39.0 - URINARY TRACT INFECTION, SITE NOT SPECIFIED Qualifiers: (12) Bacteremia Code(s): R78.81 - BACTEREMIA (13) Decubital ulcer Assessment/Plan: -Consulted Dr Miranda Code(s): L89.90 - PRESSURE ULCER OF UNSPECIFIED SITE, UNSPECIFIED STAGE Qualifiers: Pressure injury location: unspecified location Pressure injury stage: unspecified pressure injury stage Qualified Code(s): L89.90 - Pressure ulcer of unspecified site, unspecified stage Assessment/Plan see problem list
--- NOTE | 2018-10-18 12:49 | PN ---
Progress Note, JINGLE WRITER - Note Progress Note: Selected Entries 10/17/18 10/17/18 10/17/18 02:00 06:00 10:00 Temperature 98.1 F 98.4 F 98.5 F 10/17/18 10/17/18 10/18/18 13:00 22:00 02:00 Temperature 99.3 F 98.8 F 97.5 F L 10/18/18 06:21 Temperature 99.0 F Laboratory Tests 10/18/18 06:45 WBC 8.4 Puree/thin liquids ordered. Pt now on 5s. PMV tolerance limited with low volume , copious secretions per RT. Taken off PMV. Now on ventilator. Pt tolerated puree/thin liquids yesterday with PMV in place.
--- NOTE | 2018-10-18 13:11 | PN ---
Progress Note, Physician History of Present Illness: PULMONARY SLEEPING ON VENT SUPPORT AC MODE UNABLE TO TOLERATE TRACH COLLAR DESATURATED - Current Medication List Current Medications: Active Medications Acetaminophen (Tylenol -) 650 mg PO Q6H PRN PRN Reason: FEVER Last Admin: 10/17/18 18:09 Dose: 650 mg Clonazepam (Klonopin -) 0.5 mg PO BID [facility] Last Admin: 10/18/18 10:54 Dose: 0.5 mg Docusate Sodium (Colace Liquid -) 100 mg PO DAILY PRN PRN Reason: CONSTIPATION Heparin Sodium (Porcine) (Heparin -) 5,000 unit SQ BID [facility] Last Admin: 10/18/18 10:55 Dose: 5,000 unit Hydrocortisone Sodium Succinate (Solu-Cortef -) 25 mg IVPUSH BID [facility] Last Admin: 10/18/18 10:55 Dose: 25 mg Ceftriaxone Sodium 2 gm/ (Dextrose) 100 mls @ 200 mls/hr IVPB DAILY [facility]; Protocol Last Admin: 10/18/18 10:54 Dose: 200 mls/hr Loratadine (Claritin -) 10 mg PO DAILY [facility] Last Admin: 10/18/18 10:54 Dose: 10 mg Mirtazapine (Remeron -) 7.5 mg PO HS [facility] Last Admin: 10/17/18 22:26 Dose: 7.5 mg Pregabalin 100 mg/ Pregabalin (50 mg) 150 mg PO BID [facility] Last Admin: 10/18/18 10:56 Dose: 150 mg Senna (Senna Oral Solution -) 8.8 mg PO HS [facility] Last Admin: 10/17/18 22:25 Dose: 8.8 mg Sertraline HCl (Zoloft -) 100 mg PO DAILY [facility] Last Admin: 10/18/18 10:54 Dose: 100 mg Ursodiol (Actigal -) 300 mg PO BID [facility] Last Admin: 10/18/18 10:55 Dose: 300 mg - Objective Vital Signs: Vital Signs Temperature 99.0 F 10/18/18 06:21 Pulse Rate 105 H 10/18/18 06:21 Respiratory Rate 14 10/18/18 08:30 Blood Pressure 169/74 10/18/18 06:21 O2 Sat by Pulse Oximetry (%) 98 10/17/18 18:20 Constitutional: Yes: Well Nourished, Other (SLEEPING) Eyes: Yes: WNL HENT: Yes: WNL Neck: Yes: Supple (TRACH) Cardiovascular: Yes: Regular Rate and Rhythm, S1, S2 Respiratory: Yes: Rhonchi (SCATTERED LUCAS RHONCHI) Gastrointestinal: Yes: Normal Bowel Sounds, Soft Extremities: Yes: WNL Edema: Yes Labs: CBC, BMP 10/18/18 06:45 10/18/18 06:45 INR, PTT INR 1.13 (0.83-1.09) H 10/12/18 11:30 Problem List - Problems (1) Hypotension Code(s): I95.9 - HYPOTENSION, UNSPECIFIED (2) Pneumonia Code(s): J18.9 - PNEUMONIA, UNSPECIFIED ORGANISM Qualifiers: Pneumonia type: due to unspecified organism Laterality: right Lung location: lower lobe of lung Qualified Code(s): J18.1 - Lobar pneumonia, unspecified organism (3) Septic shock Code(s): A41.9 - SEPSIS, UNSPECIFIED ORGANISM; R65.21 - SEVERE SEPSIS WITH SEPTIC SHOCK (4) Acute on chronic respiratory failure with hypoxia and hypercapnia Code(s): J96.21 - ACUTE AND CHRONIC RESPIRATORY FAILURE WITH HYPOXIA; J96.22 - ACUTE AND CHRONIC RESPIRATORY FAILURE WITH HYPERCAPNIA (5) Anemia Code(s): D64.9 - ANEMIA, UNSPECIFIED (6) Chronic hypercapnic respiratory failure Code(s): J96.12 - CHRONIC RESPIRATORY FAILURE WITH HYPERCAPNIA (7) Edema Code(s): R60.9 - EDEMA, UNSPECIFIED (8) Functional quadriplegia Code(s): R53.2 - FUNCTIONAL QUADRIPLEGIA (9) Functional 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 (10) Hx of multiple sclerosis Code(s): Z86.69 - PERSONAL HISTORY OF DIS OF THE NERVOUS SYS AND SENSE ORGANS (11) Neurogenic bladder Code(s): N31.9 - NEUROMUSCULAR DYSFUNCTION OF BLADDER, UNSPECIFIED (12) Sepsis Code(s): A41.9 - SEPSIS, UNSPECIFIED ORGANISM Qualifiers: Sepsis type: sepsis due to unspecified organism Qualified Code(s): A41.9 - Sepsis, unspecified organism Assessment/Plan ASSESSMENT/PLAN: Resolved Septic Shock secondary to urinary tract source Pneumonia Acute Hypoxic Hypercapneic Respiratory Failure Anemia Hypothyroidism Multiple Sclerosis Trigeminal Neuralgia Gallstones ABX per ID Vent support ac mode Trial of Trach collar as tolerated VTE prophylaxis Enteral feeds DR ELDER
--- NOTE | 2018-10-18 13:53 | PN ---
Progress Note, Physician History of Present Illness: PULMONARY SLEEPING ON VENT SUPPORT AC MODE ,UNABLE TO TOLERATE TRACH COLLAR DESATURATED - Current Medication List Current Medications: Active Medications Acetaminophen (Tylenol -) 650 mg PO Q6H PRN PRN Reason: FEVER Last Admin: 10/17/18 18:09 Dose: 650 mg Clonazepam (Klonopin -) 0.5 mg PO BID [facility] Last Admin: 10/18/18 10:54 Dose: 0.5 mg Docusate Sodium (Colace Liquid -) 100 mg PO DAILY PRN PRN Reason: CONSTIPATION Heparin Sodium (Porcine) (Heparin -) 5,000 unit SQ BID [facility] Last Admin: 10/18/18 10:55 Dose: 5,000 unit Hydrocortisone Sodium Succinate (Solu-Cortef -) 25 mg IVPUSH BID [facility] Last Admin: 10/18/18 10:55 Dose: 25 mg Ceftriaxone Sodium 2 gm/ (Dextrose) 100 mls @ 200 mls/hr IVPB DAILY [facility]; Protocol Last Admin: 10/18/18 10:54 Dose: 200 mls/hr Loratadine (Claritin -) 10 mg PO DAILY [facility] Last Admin: 10/18/18 10:54 Dose: 10 mg Mirtazapine (Remeron -) 7.5 mg PO HS [facility] Last Admin: 10/17/18 22:26 Dose: 7.5 mg Pregabalin 100 mg/ Pregabalin (50 mg) 150 mg PO BID [facility] Last Admin: 10/18/18 10:56 Dose: 150 mg Senna (Senna Oral Solution -) 8.8 mg PO HS [facility] Last Admin: 10/17/18 22:25 Dose: 8.8 mg Sertraline HCl (Zoloft -) 100 mg PO DAILY [facility] Last Admin: 10/18/18 10:54 Dose: 100 mg Ursodiol (Actigal -) 300 mg PO BID [facility] Last Admin: 10/18/18 10:55 Dose: 300 mg - Objective Vital Signs: Vital Signs Temperature 99.0 F 10/18/18 06:21 Pulse Rate 105 H 10/18/18 06:21 Respiratory Rate 14 10/18/18 12:00 Blood Pressure 169/74 10/18/18 06:21 O2 Sat by Pulse Oximetry (%) 98 10/17/18 18:20 Constitutional: Yes: Well Nourished, Other (SLEEPING) Eyes: Yes: WNL HENT: Yes: WNL Neck: Yes: Supple (TRACH) Cardiovascular: Yes: Regular Rate and Rhythm, S1, S2 Respiratory: Yes: Rhonchi (FEW SCATTERD RHONCHI) Gastrointestinal: Yes: Normal Bowel Sounds, Soft Extremities: Yes: WNL Edema: Yes Labs: CBC, BMP 10/18/18 06:45 10/18/18 06:45 INR, PTT INR 1.13 (0.83-1.09) H 10/12/18 11:30 Problem List - Problems (1) Hypotension Code(s): I95.9 - HYPOTENSION, UNSPECIFIED (2) Pneumonia Code(s): J18.9 - PNEUMONIA, UNSPECIFIED ORGANISM Qualifiers: Pneumonia type: due to unspecified organism Laterality: right Lung location: lower lobe of lung Qualified Code(s): J18.1 - Lobar pneumonia, unspecified organism (3) Septic shock Code(s): A41.9 - SEPSIS, UNSPECIFIED ORGANISM; R65.21 - SEVERE SEPSIS WITH SEPTIC SHOCK (4) Acute on chronic respiratory failure with hypoxia and hypercapnia Code(s): J96.21 - ACUTE AND CHRONIC RESPIRATORY FAILURE WITH HYPOXIA; J96.22 - ACUTE AND CHRONIC RESPIRATORY FAILURE WITH HYPERCAPNIA (5) Anemia Code(s): D64.9 - ANEMIA, UNSPECIFIED (6) Chronic hypercapnic respiratory failure Code(s): J96.12 - CHRONIC RESPIRATORY FAILURE WITH HYPERCAPNIA (7) Edema Code(s): R60.9 - EDEMA, UNSPECIFIED (8) Functional quadriplegia Code(s): R53.2 - FUNCTIONAL QUADRIPLEGIA (9) Functional 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 (10) Hx of multiple sclerosis Code(s): Z86.69 - PERSONAL HISTORY OF DIS OF THE NERVOUS SYS AND SENSE ORGANS (11) Neurogenic bladder Code(s): N31.9 - NEUROMUSCULAR DYSFUNCTION OF BLADDER, UNSPECIFIED (12) Sepsis Code(s): A41.9 - SEPSIS, UNSPECIFIED ORGANISM Qualifiers: Sepsis type: sepsis due to unspecified organism Qualified Code(s): A41.9 - Sepsis, unspecified organism Assessment/Plan ASSESSMENT/PLAN: Resolved Septic Shock secondary to urinary tract source Pneumonia Acute Hypoxic Hypercapneic Respiratory Failure Anemia Hypothyroidism Multiple Sclerosis Trigeminal Neuralgia Gallstones ABX per ID Vent support ac mode Trial of Trach collar as tolerated VTE prophylaxis Enteral feeds DR ELDER
--- NOTE | 2018-10-18 14:41 | PN ---
Progress Note (short form) - Note Progress Note: Renal follow up for MANNY Pt seen and examined at the bedside awake and alert on vent via trach making urine getting tube feeds at night c/o leg swelling Vital Signs Temperature 99.0 F 10/18/18 06:21 Pulse Rate 105 H 10/18/18 06:21 Respiratory Rate 14 10/18/18 12:00 Blood Pressure 169/74 10/18/18 06:21 O2 Sat by Pulse Oximetry (%) 98 10/17/18 18:20 Intake & Output 10/15/18 10/16/18 10/17/18 10/18/18 23:59 23:59 23:59 23:59 Intake Total 2241 3770 1317 708 Output Total 1900 2200 900 900 Balance 341 1570 417 -192 Weight 76.884 kg 80.422 kg 80.24 kg NAD on vent via trach RRR Dec BS, no rales or wheeze soft, NT/ND + edema in LE CBC, BMP 10/18/18 06:45 10/18/18 06:45 Current Medications Acetaminophen (Tylenol -) 650 mg PO Q6H PRN PRN Reason: FEVER Last Admin: 10/17/18 18:09 Dose: 650 mg Clonazepam (Klonopin -) 0.5 mg PO BID [facility] Last Admin: 10/18/18 10:54 Dose: 0.5 mg Docusate Sodium (Colace Liquid -) 100 mg PO DAILY PRN PRN Reason: CONSTIPATION Heparin Sodium (Porcine) (Heparin -) 5,000 unit SQ BID [facility] Last Admin: 10/18/18 10:55 Dose: 5,000 unit Hydrocortisone Sodium Succinate (Solu-Cortef -) 25 mg IVPUSH BID [facility] Last Admin: 10/18/18 10:55 Dose: 25 mg Ceftriaxone Sodium 2 gm/ (Dextrose) 100 mls @ 200 mls/hr IVPB DAILY [facility]; Protocol Last Admin: 10/18/18 10:54 Dose: 200 mls/hr Loratadine (Claritin -) 10 mg PO DAILY [facility] Last Admin: 10/18/18 10:54 Dose: 10 mg Mirtazapine (Remeron -) 7.5 mg PO HS [facility] Last Admin: 10/17/18 22:26 Dose: 7.5 mg Pregabalin 100 mg/ Pregabalin (50 mg) 150 mg PO BID [facility] Last Admin: 10/18/18 10:56 Dose: 150 mg Senna (Senna Oral Solution -) 8.8 mg PO HS [facility] Last Admin: 10/17/18 22:25 Dose: 8.8 mg Sertraline HCl (Zoloft -) 100 mg PO DAILY [facility] Last Admin: 10/18/18 10:54 Dose: 100 mg Ursodiol (Actigal -) 300 mg PO BID [facility] Last Admin: 10/18/18 10:55 Dose: 300 mg 53 year old woman with history of multiple sclerosis s/p trach on vent as needed, hypothyroidism, recurrent UTI's who presented from home with AMS and found to have Sepsis syndrome with MANNY. #MANNY in setting of sepsis/renal hypoprofusion vs obstruction (occluded Raza) now improved #Hyperkalemia in setting of MANNY (improved) #Sepsis r/o PNA vs. UTI #Multiple sclerosis #Hypothyroidism #Hx of SIADH Renal function now improved to baseline Hemodynamically stable at this time will start free water via GT 250cc Q8h in addition to water being given hourly with tube feeds continue low K tube feeds for now and trend electrolytes daily continue supportive care Abx as per ID expect that her edema should resolve over time as she has normal kidney and heart function Tyshawn Doe DO
--- NOTE | 2018-10-18 15:51 | PN.GI ---
GI Progress Note Subjective: GI NOte: LFTs continue to normalize. The picture remains most consistent with urosepsis. - Objective Vital Signs: Vital Signs Temperature 98.7 F 10/18/18 14:00 Pulse Rate 84 10/18/18 14:00 Respiratory Rate 16 10/18/18 14:00 Blood Pressure 128/76 10/18/18 14:00 O2 Sat by Pulse Oximetry (%) 96 10/18/18 11:00 Laboratory Tests 10/14/18 10/18/18 05:20 06:45 Total Bilirubin 0.3 < 0.1 L AST 25 13 L ALT 27 15 Alkaline Phosphatase 226 H 158 H Constitutional: No Distress ...Auscultate: Yes: Hypoactive Bowel Sounds ...Palpate: Yes: Soft, Other (nontender) Labs: CBC, BMP 10/18/18 06:45 10/18/18 06:45 INR, PTT INR 1.13 (0.83-1.09) H 10/12/18 11:30 Assessment/Plan Impression: - Dilated CBD due to repeated stone passage. Geetha can however develop cholangitis at any time and should be maintained on ursodiol as she has opted against such interventions as ERCP and surgery Plan: -- Continue ursodiol Problem List - Problems (1) Dilated bile duct Code(s): K83.8 - OTHER SPECIFIED DISEASES OF BILIARY TRACT (2) Gallstones Code(s): K80.20 - CALCULUS OF GALLBLADDER W/O CHOLECYSTITIS W/O OBSTRUCTION (3) Septic shock Code(s): A41.9 - SEPSIS, UNSPECIFIED ORGANISM; R65.21 - SEVERE SEPSIS WITH SEPTIC SHOCK (4) Abnormal LFTs Code(s): R94.5 - ABNORMAL RESULTS OF LIVER FUNCTION STUDIES (5) Acute on chronic respiratory failure with hypoxia and hypercapnia Code(s): J96.21 - ACUTE AND CHRONIC RESPIRATORY FAILURE WITH HYPOXIA; J96.22 - ACUTE AND CHRONIC RESPIRATORY FAILURE WITH HYPERCAPNIA (6) Choledocholithiasis Code(s): K80.50 - CALCULUS OF BILE DUCT W/O CHOLANGITIS OR CHOLECYST W/O OBST (7) Cholelithiasis Code(s): K80.20 - CALCULUS OF GALLBLADDER W/O CHOLECYSTITIS W/O OBSTRUCTION (8) Functional 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 (9) Hyponatremia Code(s): E87.1 - HYPO-OSMOLALITY AND HYPONATREMIA (10) Hypothyroid Code(s): E03.9 - HYPOTHYROIDISM, UNSPECIFIED (11) Multiple sclerosis Code(s): G35 - MULTIPLE SCLEROSIS (12) Respiratory failure Code(s): J96.90 - RESPIRATORY FAILURE, UNSP, UNSP W HYPOXIA OR HYPERCAPNIA (13) Sacral decubitus ulcer, stage IV Code(s): L89.154 - PRESSURE ULCER OF SACRAL REGION, STAGE 4 (14) Sepsis Code(s): A41.9 - SEPSIS, UNSPECIFIED ORGANISM Qualifiers: Sepsis type: sepsis due to unspecified organism Qualified Code(s): A41.9 - Sepsis, unspecified organism (15) Urinary tract infection Code(s): N39.0 - URINARY TRACT INFECTION, SITE NOT SPECIFIED Qualifiers:
[2018-10-18] MEDS: AMINO ACIDS/PROTEIN HYDROLYS 30 ML LIQUID.PKT PO SCH (16:55)
[2018-10-18] MEDS: MIRTAZAPINE 15 MG TABLET (FP) PO SCH (21:05)
[2018-10-18] MEDS ORDERED: PT OWN MED DRAWER 7, Y5N ONE (21:08)
[2018-10-18] MEDS: SENNOSIDES 8.8 MG/5 ML BULK BOTTLE PO SCH (21:08)
[2018-10-19 07:58] LABS: BLOOD UREA NITROGEN 26.3 mg/dL (7-18); CALCIUM 8.3 mg/dL (8.5-10.1); CREATININE 0.5 mg/dL (0.55-1.3); POTASSIUM 3.6 mmol/L (3.5-5.1)
[2018-10-19 08:48] LABS: BASO % 0.2 % (0-2.0); EOS % 2.5 % (0-4.5); HEMOGLOBIN 7.6 GM/dL (10.7-15.3); LYMPH % 10.6 % (8-40); MCH 32.1 pg (25.7-33.7); MCHC 32.9 g/dl (32.0-36.0); MEAN CELL VOLUME 97.4 fl (80-96); MEAN PLT VOLUME 10.4 fl (7.5-11.1); MONO % 5.6 % (3.8-10.2); NEUT % 81.1 % (42.8-82.8); PLATELET COUNT 89 K/MM3 (134-434); RBC 2.36 M/mm3 (3.60-5.2); RDW 16.9 % (11.6-15.6); WHITE BLOOD COUNT 7.6 K/mm3 (4.0-10.0)
[2018-10-19] MEDS ORDERED: PREGABALIN 50 MG CAPSULE ONE ×2 (09:11→21:27)
[2018-10-19] MEDS ORDERED: PREGABALIN 100 MG CAPSULE ONE ×2 (09:12→21:28)
[2018-10-19] MEDS ORDERED: DEXTROSE 5%-WATER 100 ML IVPB ONE (09:13)
[2018-10-19] MEDS: HEPARIN NA (PORCINE) 5,000 UNITS/ML 1ML VIAL SQ SCH ×2 (09:28→21:53)
[2018-10-19] MEDS: AMINO ACIDS/PROTEIN HYDROLYS 30 ML LIQUID.PKT PO SCH ×2 (09:28→17:36)
[2018-10-19] MEDS: CEFTRIAXONE 2 GM in DEXTROSE 5%-WATER 100 ML IVPB SCH (09:28)
[2018-10-19] MEDS: HYDROCORTISONE SOD SUCCINATE 100 MG/2 ML VIAL IVPUSH SCH ×2 (09:29→21:55)
[2018-10-19] MEDS: PREGABALIN 100 MG, PREGABALIN 50 MG PO SCH ×2 (09:29→21:51)
[2018-10-19] MEDS: clonazePAM 0.5 MG TABLET PO SCH ×2 (09:31→21:51)
[2018-10-19] MEDS: SERTRALINE HCL 50 MG TABLET (FP) PO SCH (09:31)
[2018-10-19] MEDS: LORATADINE 10 MG TABLET PO SCH (09:31)
[2018-10-19] MEDS: URSODIOL 300 MG CAPSULE PO SCH ×2 (09:31→21:51)
[2018-10-19] MEDS: DOCUSATE NA 100 MG/10 ML UNIT-DOSE CUPS PO PRN (09:31)
--- NOTE | 2018-10-19 11:10 | PN ---
Progress Note, Physician Chief Complaint: Sepsis UTI Pneumonia acute on chronic resp failure History of Present Illness: NAD On mech vent Mother at bedside pt alert today, but tired diffuse edema noted - Current Medication List Current Medications: Active Medications Acetaminophen (Tylenol -) 650 mg PO Q6H PRN PRN Reason: FEVER Last Admin: 10/17/18 18:09 Dose: 650 mg Amino Acids (Prosource No Carb Liquid Pkt) 30 ml PO BID@0800,1730 [facility] Last Admin: 10/19/18 09:28 Dose: 30 ml Clonazepam (Klonopin -) 0.5 mg PO BID [facility] Last Admin: 10/19/18 09:31 Dose: 0.5 mg Docusate Sodium (Colace Liquid -) 100 mg PO DAILY PRN PRN Reason: CONSTIPATION Last Admin: 10/19/18 09:31 Dose: 100 mg Heparin Sodium (Porcine) (Heparin -) 5,000 unit SQ BID [facility] Last Admin: 10/19/18 09:28 Dose: 5,000 unit Hydrocortisone Sodium Succinate (Solu-Cortef -) 25 mg IVPUSH BID [facility] Last Admin: 10/19/18 09:29 Dose: 25 mg Ceftriaxone Sodium 2 gm/ (Dextrose) 100 mls @ 200 mls/hr IVPB DAILY [facility]; Protocol Last Admin: 10/19/18 09:28 Dose: 200 mls/hr Loratadine (Claritin -) 10 mg PO DAILY [facility] Last Admin: 10/19/18 09:31 Dose: 10 mg Mirtazapine (Remeron -) 7.5 mg PO HS [facility] Last Admin: 10/18/18 21:05 Dose: 7.5 mg Pregabalin 100 mg/ Pregabalin (50 mg) 150 mg PO BID [facility] Last Admin: 10/19/18 09:29 Dose: 150 mg Senna (Senna Oral Solution -) 8.8 mg PO HS [facility] Last Admin: 10/18/18 21:08 Dose: 8.8 mg Sertraline HCl (Zoloft -) 100 mg PO DAILY [facility] Last Admin: 10/19/18 09:31 Dose: 100 mg Ursodiol (Actigal -) 300 mg PO BID [facility] Last Admin: 10/19/18 09:31 Dose: 300 mg - Objective Vital Signs: Vital Signs Temperature 99.0 F 10/19/18 06:00 Pulse Rate 86 10/19/18 09:49 Respiratory Rate 14 10/19/18 10:52 Blood Pressure 135/68 10/19/18 06:00 O2 Sat by Pulse Oximetry (%) 96 10/19/18 09:50 Constitutional: Yes: No Distress, Calm, Thin Cardiovascular: Yes: Regular Rate and Rhythm Respiratory: Yes: Regular, Mechanically Ventilated, Rhonchi (diffuse) Gastrointestinal: Yes: Normal Bowel Sounds, Soft Genitourinary: Yes: Raza Present Musculoskeletal: Yes: Muscle Weakness Extremities: Yes: WNL Edema: Yes (diffuse) Peripheral Pulses WNL: Yes Wound/Incision: Yes: Dressing Dry and Intact Neurological: Yes: Alert, Oriented Psychiatric: Yes: Alert, Oriented Labs: CBC, BMP 10/19/18 06:45 10/19/18 06:45 INR, PTT INR 1.13 (0.83-1.09) H 10/12/18 11:30 Problem List - Problems (1) Pneumonia Assessment/Plan: -ID consult -Pulmonary consult -IV abx -bronchodilators -Solucortef -afebrile -no leukocytosis -LA normal Code(s): J18.9 - PNEUMONIA, UNSPECIFIED ORGANISM Qualifiers: Pneumonia type: due to unspecified organism Laterality: right Lung location: lower lobe of lung Qualified Code(s): J18.1 - Lobar pneumonia, unspecified organism (2) Altered mental status Assessment/Plan: -improved -Likely 2/2 to Urosepsis Code(s): R41.82 - ALTERED MENTAL STATUS, UNSPECIFIED (3) Anemia Assessment/Plan: -chronic, stable -anemia of chronic disease Code(s): D64.9 - ANEMIA, UNSPECIFIED Qualifiers: Other causes of anemia: other cause, not classified (4) Chronic respiratory failure Assessment/Plan: -mech vent -Pulmonary consult -Trach collar as tolerated Code(s): J96.10 - CHRONIC RESPIRATORY FAILURE, UNSP W HYPOXIA OR HYPERCAPNIA (5) Constipation Assessment/Plan: -On colace+ Senna -Fleet enema today Code(s): K59.00 - CONSTIPATION, UNSPECIFIED (6) Edema Assessment/Plan: -Added prosource -IV lasix 40 mg once Code(s): R60.9 - EDEMA, UNSPECIFIED (7) Functional 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 (8) Metabolic encephalopathy Code(s): G93.41 - METABOLIC ENCEPHALOPATHY (9) Neurogenic bladder Assessment/Plan: -Raza catheter -Seen by urology Code(s): N31.9 - NEUROMUSCULAR DYSFUNCTION OF BLADDER, UNSPECIFIED (10) Sepsis Assessment/Plan: -ID consult -Pulmonary consult -IV abx -bronchodilators -Solucortef -afebrile -no leukocytosis -LA normal Code(s): A41.9 - SEPSIS, UNSPECIFIED ORGANISM Qualifiers: Sepsis type: sepsis due to unspecified organism Qualified Code(s): A41.9 - Sepsis, unspecified organism (11) Urinary tract infection Assessment/Plan: -IV abx -ID consult -afebrile -Cultures: Microbiology 10/12/18 11:30 Blood - Peripheral Venous Blood Culture - Final NO GROWTH AFTER 5 DAYS INCUBATION 10/12/18 17:20 Urine - Urine - Catheterized Urine Culture - Final Kluyvera Ascorbata Klebsiella Pneumoniae 10/13/18 01:50 Sputum - Endotrachea Suction/Ventilator Gram Stain - Final 10/13/18 01:50 Sputum - Endotrachea Suction/Ventilator Sputum Culture - Final Pseudomonas Aeruginosa 10/12/18 11:30 Blood - Peripheral Venous Blood Culture - Final Escherichia Coli 10/12/18 17:20 Urine For Antigen Detection Legionella Antigen - Final 10/12/18 17:20 Urine For Antigen Detection Streptococcus pneumoniae Antigen (M - Final 10/12/18 11:30 Urine - Urine - Catheterized Urine Culture - Final Contaminated: Please Repeat Code(s): N39.0 - URINARY TRACT INFECTION, SITE NOT SPECIFIED Qualifiers: (12) Bacteremia Code(s): R78.81 - BACTEREMIA Assessment/Plan see problem list
--- NOTE | 2018-10-19 12:39 | PN ---
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 Nursing reported distended abdomen today. Continue NPO for now.
--- NOTE | 2018-10-19 14:33 | PN ---
Progress Note, Physician History of Present Illness: pulmonary alert,on vent support ac mode -resp distress,hemodynamically stable - Current Medication List Current Medications: Active Medications Acetaminophen (Tylenol -) 650 mg PO Q6H PRN PRN Reason: FEVER Last Admin: 10/17/18 18:09 Dose: 650 mg Amino Acids (Prosource No Carb Liquid Pkt) 30 ml PO BID@0800,1730 [facility] Last Admin: 10/19/18 09:28 Dose: 30 ml Clonazepam (Klonopin -) 0.5 mg PO BID [facility] Last Admin: 10/19/18 09:31 Dose: 0.5 mg Docusate Sodium (Colace Liquid -) 100 mg PO DAILY PRN PRN Reason: CONSTIPATION Last Admin: 10/19/18 09:31 Dose: 100 mg Heparin Sodium (Porcine) (Heparin -) 5,000 unit SQ BID [facility] Last Admin: 10/19/18 09:28 Dose: 5,000 unit Hydrocortisone Sodium Succinate (Solu-Cortef -) 25 mg IVPUSH BID [facility] Last Admin: 10/19/18 09:29 Dose: 25 mg Ceftriaxone Sodium 2 gm/ (Dextrose) 100 mls @ 200 mls/hr IVPB DAILY [facility]; Protocol Last Admin: 10/19/18 09:28 Dose: 200 mls/hr Loratadine (Claritin -) 10 mg PO DAILY [facility] Last Admin: 10/19/18 09:31 Dose: 10 mg Mirtazapine (Remeron -) 7.5 mg PO HS [facility] Last Admin: 10/18/18 21:05 Dose: 7.5 mg Pregabalin 100 mg/ Pregabalin (50 mg) 150 mg PO BID [facility] Last Admin: 10/19/18 09:29 Dose: 150 mg Senna (Senna Oral Solution -) 8.8 mg PO HS [facility] Last Admin: 10/18/18 21:08 Dose: 8.8 mg Sertraline HCl (Zoloft -) 100 mg PO DAILY [facility] Last Admin: 10/19/18 09:31 Dose: 100 mg Ursodiol (Actigal -) 300 mg PO BID [facility] Last Admin: 10/19/18 09:31 Dose: 300 mg - Objective Vital Signs: Vital Signs Temperature 98.4 F 10/19/18 13:48 Pulse Rate 68 10/19/18 13:48 Respiratory Rate 14 10/19/18 13:54 Blood Pressure 128/64 10/19/18 13:48 O2 Sat by Pulse Oximetry (%) 96 10/19/18 09:50 Constitutional: Yes: Well Nourished, Calm Eyes: Yes: WNL HENT: Yes: WNL Neck: Yes: Supple (trach) Cardiovascular: Yes: Regular Rate and Rhythm, S1, S2 Respiratory: Yes: Rhonchi (few scattered rhonchi) Gastrointestinal: Yes: Normal Bowel Sounds, Soft Extremities: Yes: WNL Edema: Yes Labs: CBC, BMP 10/19/18 06:45 10/19/18 06:45 INR, PTT INR 1.13 (0.83-1.09) H 10/12/18 11:30 Problem List - Problems (1) Hypotension Code(s): I95.9 - HYPOTENSION, UNSPECIFIED (2) Pneumonia Code(s): J18.9 - PNEUMONIA, UNSPECIFIED ORGANISM Qualifiers: Pneumonia type: due to unspecified organism Laterality: right Lung location: lower lobe of lung Qualified Code(s): J18.1 - Lobar pneumonia, unspecified organism (3) Septic shock Code(s): A41.9 - SEPSIS, UNSPECIFIED ORGANISM; R65.21 - SEVERE SEPSIS WITH SEPTIC SHOCK (4) Acute on chronic respiratory failure with hypoxia and hypercapnia Code(s): J96.21 - ACUTE AND CHRONIC RESPIRATORY FAILURE WITH HYPOXIA; J96.22 - ACUTE AND CHRONIC RESPIRATORY FAILURE WITH HYPERCAPNIA (5) Anemia Code(s): D64.9 - ANEMIA, UNSPECIFIED (6) Chronic hypercapnic respiratory failure Code(s): J96.12 - CHRONIC RESPIRATORY FAILURE WITH HYPERCAPNIA (7) Edema Code(s): R60.9 - EDEMA, UNSPECIFIED (8) Functional quadriplegia Code(s): R53.2 - FUNCTIONAL QUADRIPLEGIA (9) Functional 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 (10) Hx of multiple sclerosis Code(s): Z86.69 - PERSONAL HISTORY OF DIS OF THE NERVOUS SYS AND SENSE ORGANS (11) Neurogenic bladder Code(s): N31.9 - NEUROMUSCULAR DYSFUNCTION OF BLADDER, UNSPECIFIED (12) Sepsis Code(s): A41.9 - SEPSIS, UNSPECIFIED ORGANISM Qualifiers: Sepsis type: sepsis due to unspecified organism Qualified Code(s): A41.9 - Sepsis, unspecified organism Assessment/Plan ASSESSMENT/PLAN: Resolved Septic Shock secondary to urinary tract source Pneumonia Acute Hypoxic Hypercapneic Respiratory Failure Anemia Hypothyroidism Multiple Sclerosis Trigeminal Neuralgia Gallstones ABX per ID Vent support ac mode Trial of Trach collar as tolerated VTE prophylaxis Enteral feeds DR ELDER
[2018-10-19] MEDS ORDERED: FUROSEMIDE 40 MG/4 ML INJECTABLE VIAL IVPUSH ONE (14:38)
[2018-10-19] MEDS ORDERED: SODIUM PHOSPHATE/NA BIPHOS 133 ML ENEMA RC ONE (16:15)
--- NOTE | 2018-10-19 16:52 | PN ---
Progress Note (short form) - Note Progress Note: Renal follow up for MANNY Pt seen and examined at the bedside awake on vent denies any pain or sob on tube feeds at night Vital Signs Temperature 98.4 F 10/19/18 13:48 Pulse Rate 68 10/19/18 13:48 Respiratory Rate 14 10/19/18 13:54 Blood Pressure 128/64 10/19/18 13:48 O2 Sat by Pulse Oximetry (%) 90 L 10/19/18 11:00 Intake & Output 10/16/18 10/17/18 10/18/18 10/19/18 23:59 23:59 23:59 23:59 Intake Total 3770 1317 1158 2130 Output Total 2200 900 2150 950 Balance 1570 417 -992 1180 Weight 80.422 kg 80.24 kg NAD on vent via trach RRR Dec BS, no rales or wheeze soft, NT/ND + edema in LE CBC, BMP 10/19/18 06:45 10/19/18 06:45 Current Medications Acetaminophen (Tylenol -) 650 mg PO Q6H PRN PRN Reason: FEVER Last Admin: 10/17/18 18:09 Dose: 650 mg Amino Acids (Prosource No Carb Liquid Pkt) 30 ml PO BID@0800,1730 [facility] Last Admin: 10/19/18 09:28 Dose: 30 ml Clonazepam (Klonopin -) 0.5 mg PO BID [facility] Last Admin: 10/19/18 09:31 Dose: 0.5 mg Docusate Sodium (Colace Liquid -) 100 mg PO DAILY PRN PRN Reason: CONSTIPATION Last Admin: 10/19/18 09:31 Dose: 100 mg Heparin Sodium (Porcine) (Heparin -) 5,000 unit SQ BID [facility] Last Admin: 10/19/18 09:28 Dose: 5,000 unit Hydrocortisone Sodium Succinate (Solu-Cortef -) 25 mg IVPUSH BID [facility] Last Admin: 10/19/18 09:29 Dose: 25 mg Ceftriaxone Sodium 2 gm/ (Dextrose) 100 mls @ 200 mls/hr IVPB DAILY [facility]; Protocol Last Admin: 10/19/18 09:28 Dose: 200 mls/hr Loratadine (Claritin -) 10 mg PO DAILY [facility] Last Admin: 10/19/18 09:31 Dose: 10 mg Mirtazapine (Remeron -) 7.5 mg PO HS [facility] Last Admin: 10/18/18 21:05 Dose: 7.5 mg Pregabalin 100 mg/ Pregabalin (50 mg) 150 mg PO BID [facility] Last Admin: 10/19/18 09:29 Dose: 150 mg Senna (Senna Oral Solution -) 8.8 mg PO HS [facility] Last Admin: 10/18/18 21:08 Dose: 8.8 mg Sertraline HCl (Zoloft -) 100 mg PO DAILY [facility] Last Admin: 10/19/18 09:31 Dose: 100 mg Ursodiol (Actigal -) 300 mg PO BID [facility] Last Admin: 10/19/18 09:31 Dose: 300 mg 53 year old woman with history of multiple sclerosis s/p trach on vent as needed, hypothyroidism, recurrent UTI's who presented from home with AMS and found to have Sepsis syndrome with MANNY. #MANNY in setting of sepsis/renal hypoprofusion vs obstruction (occluded Raza) now improved #Hyperkalemia in setting of MANNY (improved) #Sepsis r/o PNA vs. UTI #Multiple sclerosis #Hypothyroidism #Hx of SIADH Renal function now improved to baseline Hemodynamically stable at this time will increase free water to 250cc Q6h as serum na remains elevated continue low K tube feeds for now and trend electrolytes daily continue supportive care Abx as per TAPAN Doe DO
--- NOTE | 2018-10-19 17:08 | PN ---
Progress Note (short form) - Note Progress Note: alert NAD still with swelling of the arms and legs Vital Signs Period Temp Pulse Resp BP Sys/Morillo Pulse Ox Last 24 Hr 97.4 F-99.0 F 56-86 14-17 113-141/58-74 90-97 cor-rrr lungs decreased bs at bases abd soft,+GT +swelling of her hands and legs CBC, BMP 10/19/18 06:45 10/19/18 06:45 Microbiology 10/12/18 11:30 Blood - Peripheral Venous Blood Culture - Final NO GROWTH AFTER 5 DAYS INCUBATION 10/12/18 17:20 Urine - Urine - Catheterized Urine Culture - Final Kluyvera Ascorbata Klebsiella Pneumoniae 10/13/18 01:50 Sputum - Endotrachea Suction/Ventilator Gram Stain - Final 10/13/18 01:50 Sputum - Endotrachea Suction/Ventilator Sputum Culture - Final Pseudomonas Aeruginosa 10/12/18 11:30 Blood - Peripheral Venous Blood Culture - Final Escherichia Coli 10/12/18 17:20 Urine For Antigen Detection Legionella Antigen - Final 10/12/18 17:20 Urine For Antigen Detection Streptococcus pneumoniae Antigen (M - Final 10/12/18 11:30 Urine - Urine - Catheterized Urine Culture - Final Contaminated: Please Repeat Current Medications Acetaminophen (Tylenol -) 650 mg PO Q6H PRN PRN Reason: FEVER Last Admin: 10/17/18 18:09 Dose: 650 mg Amino Acids (Prosource No Carb Liquid Pkt) 30 ml PO BID@0800,1730 [facility] Last Admin: 10/19/18 09:28 Dose: 30 ml Clonazepam (Klonopin -) 0.5 mg PO BID [facility] Last Admin: 10/19/18 09:31 Dose: 0.5 mg Docusate Sodium (Colace Liquid -) 100 mg PO DAILY PRN PRN Reason: CONSTIPATION Last Admin: 10/19/18 09:31 Dose: 100 mg Heparin Sodium (Porcine) (Heparin -) 5,000 unit SQ BID [facility] Last Admin: 10/19/18 09:28 Dose: 5,000 unit Hydrocortisone Sodium Succinate (Solu-Cortef -) 25 mg IVPUSH BID [facility] Last Admin: 10/19/18 09:29 Dose: 25 mg Ceftriaxone Sodium 2 gm/ (Dextrose) 100 mls @ 200 mls/hr IVPB DAILY [facility]; Protocol Last Admin: 10/19/18 09:28 Dose: 200 mls/hr Loratadine (Claritin -) 10 mg PO DAILY [facility] Last Admin: 10/19/18 09:31 Dose: 10 mg Mirtazapine (Remeron -) 7.5 mg PO HS [facility] Last Admin: 10/18/18 21:05 Dose: 7.5 mg Pregabalin 100 mg/ Pregabalin (50 mg) 150 mg PO BID [facility] Last Admin: 10/19/18 09:29 Dose: 150 mg Senna (Senna Oral Solution -) 8.8 mg PO HS [facility] Last Admin: 10/18/18 21:08 Dose: 8.8 mg Sertraline HCl (Zoloft -) 100 mg PO DAILY [facility] Last Admin: 10/19/18 09:31 Dose: 100 mg Ursodiol (Actigal -) 300 mg PO BID [facility] Last Admin: 10/19/18 09:31 Dose: 300 mg a/p ecoli bacteremia continue rocephin day #7 thrombocytopenia persisting-?heme eval, will repeat blood cultures MS with chronic trach/peg/perera sacral ulcer- local care Problem List - Problems (1) Septic shock Code(s): A41.9 - SEPSIS, UNSPECIFIED ORGANISM; R65.21 - SEVERE SEPSIS WITH SEPTIC SHOCK (2) Acute renal insufficiency Code(s): N28.9 - DISORDER OF KIDNEY AND URETER, UNSPECIFIED (3) Functional 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 (4) Sacral decubitus ulcer, stage IV Code(s): L89.154 - PRESSURE ULCER OF SACRAL REGION, STAGE 4
[2018-10-19] MEDS: MIRTAZAPINE 15 MG TABLET (FP) PO SCH (21:52)
[2018-10-19] MEDS: SENNOSIDES 8.8 MG/5 ML BULK BOTTLE PO SCH (21:53)
--- NOTE | 2018-10-20 10:32 | PN ---
Progress Note (short form) - Note Progress Note: Patient known to me for Grade IV decubitii Bilateral Ischium and sacrum Admitted for UTI, has respiratory difficulty, swelling of limbs Mother at Bedside Awake alert, answering questions coherently though limited in speech Vitals Signs Selected Entries 10/20/18 06:00 Temperature 98.6 F Pulse Rate 69 Respiratory 16 Rate Blood Pressure 136/66 Wounds : All wounds inspected Has Pressure changes , 1. worse in R Ischium extending in Labia Majora with skin maceration, edges rolled, Bone exposed and palpable Decubitus has worsened 2,. Sacral wound GradeIV extends to bone, bone palpable pressure changes present decubitus is deeper with tunneling Mild odor, edges shelving 3. L Ischium : Extends to Bone, Bone exposed and palpable, tunneling, Pressure changes present, mild odor All decubitii Grade IV Plan : Continue Conservative Management : 1. Clean with NSS 2. Apply Silver Alginate 3 Cover with Optifoam 4, Use Grade III Pressure relief mattress 5. Continue Medical management Patient condition not conducive for aggressive wound debridement
[2018-10-20] MEDS ORDERED: PREGABALIN 100 MG CAPSULE ONE ×2 (11:31→20:48)
[2018-10-20] MEDS ORDERED: PREGABALIN 50 MG CAPSULE ONE ×2 (11:31→20:47)
[2018-10-20] MEDS ORDERED: PT OWN MED DRAWER 7, Y5N ONE (11:32)
[2018-10-20] MEDS ORDERED: DEXTROSE 5%-WATER 100 ML IVPB ONE (11:33)
[2018-10-20 11:34] LABS: BASO % 0.2 % (0-2.0); HEMATOCRIT 24.5 % (32.4-45.2); LYMPH % 16.1 % (8-40); MCH 31.6 pg (25.7-33.7); MCHC 32.6 g/dl (32.0-36.0); MEAN CELL VOLUME 96.8 fl (80-96); MEAN PLT VOLUME 9.9 fl (7.5-11.1); MONO % 10.9 % (3.8-10.2); NEUT % 68.8 % (42.8-82.8); PLATELET COUNT 105 K/MM3 (134-434); RBC 2.53 M/mm3 (3.60-5.2); RDW 16.7 % (11.6-15.6); WHITE BLOOD COUNT 5.5 K/mm3 (4.0-10.0)
[2018-10-20] MEDS: PREGABALIN 100 MG, PREGABALIN 50 MG PO SCH ×2 (11:52→23:00)
[2018-10-20] MEDS: SERTRALINE HCL 50 MG TABLET (FP) PO SCH (11:53)
[2018-10-20] MEDS: URSODIOL 300 MG CAPSULE PO SCH ×2 (11:53→23:01)
[2018-10-20] MEDS: clonazePAM 0.5 MG TABLET PO SCH ×2 (11:53→23:01)
[2018-10-20] MEDS: HYDROCORTISONE SOD SUCCINATE 100 MG/2 ML VIAL IVPUSH SCH ×2 (11:53→23:03)
[2018-10-20] MEDS: CEFTRIAXONE 2 GM in DEXTROSE 5%-WATER 100 ML IVPB SCH (11:54)
[2018-10-20] MEDS: HEPARIN NA (PORCINE) 5,000 UNITS/ML 1ML VIAL SQ SCH ×2 (11:55→23:01)
[2018-10-20] MEDS: LORATADINE 10 MG TABLET PO SCH (11:56)
[2018-10-20] MEDS: AMINO ACIDS/PROTEIN HYDROLYS 30 ML LIQUID.PKT PO SCH ×2 (11:57→18:25)
[2018-10-20] MEDS ORDERED: MINERAL OIL ENEMA 133 ML ENEMA PR ONE (12:23)
--- NOTE | 2018-10-20 12:30 | PN ---
Progress Note, Physician Chief Complaint: patient seen and examined today on iv abx - Current Medication List Current Medications: Active Medications Acetaminophen (Tylenol -) 650 mg PO Q6H PRN PRN Reason: FEVER Last Admin: 10/17/18 18:09 Dose: 650 mg Amino Acids (Prosource No Carb Liquid Pkt) 30 ml PO BID@0800,1730 [facility] Last Admin: 10/20/18 11:57 Dose: 30 ml Clonazepam (Klonopin -) 0.5 mg PO BID [facility] Last Admin: 10/20/18 11:53 Dose: 0.5 mg Docusate Sodium (Colace Liquid -) 100 mg PO DAILY PRN PRN Reason: CONSTIPATION Last Admin: 10/19/18 09:31 Dose: 100 mg Heparin Sodium (Porcine) (Heparin -) 5,000 unit SQ BID [facility] Last Admin: 10/20/18 11:55 Dose: 5,000 unit Hydrocortisone Sodium Succinate (Solu-Cortef -) 25 mg IVPUSH BID [facility] Last Admin: 10/20/18 11:53 Dose: 25 mg Ceftriaxone Sodium 2 gm/ (Dextrose) 100 mls @ 200 mls/hr IVPB DAILY [facility]; Protocol Last Admin: 10/20/18 11:54 Dose: 200 mls/hr Loratadine (Claritin -) 10 mg PO DAILY [facility] Last Admin: 10/20/18 11:56 Dose: 10 mg Mineral Oil (Fleet Mineral Oil Rectal Enema -) 133 ml [place] NOW ONE Stop: 10/20/18 12:24 Mirtazapine (Remeron -) 7.5 mg PO HS [facility] Last Admin: 10/19/18 21:52 Dose: 7.5 mg Pregabalin 100 mg/ Pregabalin (50 mg) 150 mg PO BID [facility] Last Admin: 10/20/18 11:52 Dose: 150 mg Senna (Senna Oral Solution -) 8.8 mg PO HS [facility] Last Admin: 10/19/18 21:53 Dose: 8.8 mg Sertraline HCl (Zoloft -) 100 mg PO DAILY [facility] Last Admin: 10/20/18 11:53 Dose: 100 mg Ursodiol (Actigal -) 300 mg PO BID [facility] Last Admin: 10/20/18 11:53 Dose: 300 mg - Objective Vital Signs: Vital Signs Temperature 98.6 F 10/20/18 06:00 Pulse Rate 69 08/15/19 06:00 Respiratory Rate 16 10/20/18 06:40 Blood Pressure 136/66 10/20/18 06:00 O2 Sat by Pulse Oximetry (%) 90 L 10/19/18 11:00 Constitutional: Yes: Calm Neck: Yes: Other (trach) Cardiovascular: Yes: Regular Rate and Rhythm, S1, S2 Respiratory: Yes: CTA Bilaterally Gastrointestinal: Yes: Normal Bowel Sounds, Soft, Other (peg) Edema: Yes Neurological: Yes: Alert, Oriented Labs: CBC, BMP 10/20/18 11:12 10/19/18 06:45 INR, PTT INR 1.13 (0.83-1.09) H 10/12/18 11:30 Problem List - Problems (1) Bacteremia due to Escherichia coli Assessment/Plan: rocephin day 8 Microbiology 10/12/18 11:30 Blood - Peripheral Venous Blood Culture - Final Escherichia Coli Code(s): R78.81 - BACTEREMIA (2) Constipation Assessment/Plan: abdominal xray miralax enema Code(s): K59.00 - CONSTIPATION, UNSPECIFIED (3) Septic shock Assessment/Plan: resolved taper and stop steroids Code(s): A41.9 - SEPSIS, UNSPECIFIED ORGANISM; R65.21 - SEVERE SEPSIS WITH SEPTIC SHOCK (4) Decubital ulcer Assessment/Plan: appreciate wound care /plastic surgeon note management per plastic surgeon note Code(s): L89.90 - PRESSURE ULCER OF UNSPECIFIED SITE, UNSPECIFIED STAGE Qualifiers: Pressure injury location: unspecified location Pressure injury stage: unspecified pressure injury stage Qualified Code(s): L89.90 - Pressure ulcer of unspecified site, unspecified stage (5) Hx of multiple sclerosis Assessment/Plan: perera cath - chronic for neurogenic bladder g tube due dysphagia- FEN frequent turn and position dvt ppx Code(s): Z86.69 - PERSONAL HISTORY OF DIS OF THE NERVOUS SYS AND SENSE ORGANS
--- NOTE | 2018-10-20 12:58 | PN ---
Progress Note, Physician History of Present Illness: PULMONARY ALERT,COMFORTABLE ON TRACH COLLAR,-RESP DISTRESS - Current Medication List Current Medications: Active Medications Acetaminophen (Tylenol -) 650 mg PO Q6H PRN PRN Reason: FEVER Last Admin: 10/17/18 18:09 Dose: 650 mg Amino Acids (Prosource No Carb Liquid Pkt) 30 ml PO BID@0800,1730 [facility] Last Admin: 10/20/18 11:57 Dose: 30 ml Clonazepam (Klonopin -) 0.5 mg PO BID [facility] Last Admin: 10/20/18 11:53 Dose: 0.5 mg Docusate Sodium (Colace Liquid -) 100 mg PO DAILY PRN PRN Reason: CONSTIPATION Last Admin: 10/19/18 09:31 Dose: 100 mg Heparin Sodium (Porcine) (Heparin -) 5,000 unit SQ BID [facility] Last Admin: 10/20/18 11:55 Dose: 5,000 unit Hydrocortisone Sodium Succinate (Solu-Cortef -) 25 mg IVPUSH BID [facility] Last Admin: 10/20/18 11:53 Dose: 25 mg Ceftriaxone Sodium 2 gm/ (Dextrose) 100 mls @ 200 mls/hr IVPB DAILY [facility]; Protocol Last Admin: 10/20/18 11:54 Dose: 200 mls/hr Loratadine (Claritin -) 10 mg PO DAILY [facility] Last Admin: 10/20/18 11:56 Dose: 10 mg Mirtazapine (Remeron -) 7.5 mg PO HS [facility] Last Admin: 10/19/18 21:52 Dose: 7.5 mg Polyethylene Glycol (Miralax (For Daily Use) -) 17 gm GT BID [facility] Pregabalin 100 mg/ Pregabalin (50 mg) 150 mg PO BID [facility] Last Admin: 10/20/18 11:52 Dose: 150 mg Senna (Senna Oral Solution -) 8.8 mg PO HS [facility] Last Admin: 10/19/18 21:53 Dose: 8.8 mg Sertraline HCl (Zoloft -) 100 mg PO DAILY [facility] Last Admin: 10/20/18 11:53 Dose: 100 mg Ursodiol (Actigal -) 300 mg PO BID [facility] Last Admin: 10/20/18 11:53 Dose: 300 mg - Objective Vital Signs: Vital Signs Temperature 98.6 F 10/20/18 06:00 Pulse Rate 69 10/20/18 06:00 Respiratory Rate 16 10/20/18 06:40 Blood Pressure 136/66 10/20/18 06:00 O2 Sat by Pulse Oximetry (%) 90 L 10/19/18 11:00 Constitutional: Yes: Well Nourished, Calm Eyes: Yes: WNL HENT: Yes: WNL Neck: Yes: Supple (TRACH) Cardiovascular: Yes: Regular Rate and Rhythm, S1, S2 Respiratory: Yes: Rhonchi (FEW RHONCHI) Gastrointestinal: Yes: Normal Bowel Sounds, Soft Extremities: Yes: WNL Edema: Yes Labs: CBC, BMP 10/20/18 11:12 10/19/18 06:45 INR, PTT INR 1.13 (0.83-1.09) H 10/12/18 11:30 Problem List - Problems (1) Hypotension Code(s): I95.9 - HYPOTENSION, UNSPECIFIED (2) Pneumonia Code(s): J18.9 - PNEUMONIA, UNSPECIFIED ORGANISM Qualifiers: Pneumonia type: due to unspecified organism Laterality: right Lung location: lower lobe of lung Qualified Code(s): J18.1 - Lobar pneumonia, unspecified organism (3) Septic shock Code(s): A41.9 - SEPSIS, UNSPECIFIED ORGANISM; R65.21 - SEVERE SEPSIS WITH SEPTIC SHOCK (4) Acute on chronic respiratory failure with hypoxia and hypercapnia Code(s): J96.21 - ACUTE AND CHRONIC RESPIRATORY FAILURE WITH HYPOXIA; J96.22 - ACUTE AND CHRONIC RESPIRATORY FAILURE WITH HYPERCAPNIA (5) Anemia Code(s): D64.9 - ANEMIA, UNSPECIFIED (6) Chronic hypercapnic respiratory failure Code(s): J96.12 - CHRONIC RESPIRATORY FAILURE WITH HYPERCAPNIA (7) Edema Code(s): R60.9 - EDEMA, UNSPECIFIED (8) Functional quadriplegia Code(s): R53.2 - FUNCTIONAL QUADRIPLEGIA (9) Functional 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 (10) Hx of multiple sclerosis Code(s): Z86.69 - PERSONAL HISTORY OF DIS OF THE NERVOUS SYS AND SENSE ORGANS (11) Neurogenic bladder Code(s): N31.9 - NEUROMUSCULAR DYSFUNCTION OF BLADDER, UNSPECIFIED (12) Sepsis Code(s): A41.9 - SEPSIS, UNSPECIFIED ORGANISM Qualifiers: Sepsis type: sepsis due to unspecified organism Qualified Code(s): A41.9 - Sepsis, unspecified organism Assessment/Plan ASSESSMENT/PLAN: Resolved Septic Shock secondary to urinary tract source Pneumonia Acute Hypoxic Hypercapneic Respiratory Failure improved Anemia Hypothyroidism Multiple Sclerosis Trigeminal Neuralgia Gallstones ABX per ID Vent support ac mode at night Trach collar as tolerated VTE prophylaxis Enteral feeds chest x-ray DR ELDER
[2018-10-20] MEDS: POLYETHYLENE GLYCOL 3350 119 GM BTL GT SCH ×2 (15:51→22:59)
[2018-10-20 16:25] LABS: IRON SERUM 14 ug/dL (50-175); TOTAL IRON BINDING CAPACITY 161 ug/dL (250-450)
[2018-10-20] MEDS: ACETAMINOPHEN 325 MG TABLET (FP) PO PRN (18:48)
--- NOTE | 2018-10-20 19:48 | PN ---
Progress Note (short form) - Note Progress Note: alert NAD swelling improved requesting trach change back on trach collar Vital Signs Period Temp Pulse Resp BP Sys/Morillo Pulse Ox Last 24 Hr 97.6 F-98.6 F 54-76 14-17 109-139/53-86 94-96 cor-rrr lungs decreased bs at bases abd soft+GT ext less swelling of the hands and feet CBC, BMP 10/20/18 11:12 10/19/18 06:45 Microbiology 10/19/18 19:00 Blood - Peripheral Venous Blood Culture - Preliminary NO GROWTH OBTAINED AFTER 24 HOURS, INCUBATION TO CONTINUE FOR 4 DAYS. 10/19/18 19:00 Blood - Peripheral Venous Blood Culture - Preliminary NO GROWTH OBTAINED AFTER 24 HOURS, INCUBATION TO CONTINUE FOR 4 DAYS. 10/12/18 11:30 Blood - Peripheral Venous Blood Culture - Final NO GROWTH AFTER 5 DAYS INCUBATION 10/12/18 17:20 Urine - Urine - Catheterized Urine Culture - Final Kluyvera Ascorbata Klebsiella Pneumoniae 10/13/18 01:50 Sputum - Endotrachea Suction/Ventilator Gram Stain - Final 10/13/18 01:50 Sputum - Endotrachea Suction/Ventilator Sputum Culture - Final Pseudomonas Aeruginosa 10/12/18 11:30 Blood - Peripheral Venous Blood Culture - Final Escherichia Coli 10/12/18 17:20 Urine For Antigen Detection Legionella Antigen - Final 10/12/18 17:20 Urine For Antigen Detection Streptococcus pneumoniae Antigen (M - Final 10/12/18 11:30 Urine - Urine - Catheterized Urine Culture - Final Contaminated: Please Repeat Current Medications Acetaminophen (Tylenol -) 650 mg PO Q6H PRN PRN Reason: FEVER Last Admin: 10/20/18 18:48 Dose: 650 mg Amino Acids (Prosource No Carb Liquid Pkt) 30 ml PO BID@0800,1730 [facility] Last Admin: 10/20/18 18:25 Dose: 30 ml Clonazepam (Klonopin -) 0.5 mg PO BID [facility] Last Admin: 10/20/18 11:53 Dose: 0.5 mg Docusate Sodium (Colace Liquid -) 100 mg PO DAILY PRN PRN Reason: CONSTIPATION Last Admin: 10/19/18 09:31 Dose: 100 mg Heparin Sodium (Porcine) (Heparin -) 5,000 unit SQ BID [facility] Last Admin: 08/15/19 11:55 Dose: 5,000 unit Hydrocortisone Sodium Succinate (Solu-Cortef -) 25 mg IVPUSH BID [facility] Last Admin: 10/20/18 11:53 Dose: 25 mg Ceftriaxone Sodium 2 gm/ (Dextrose) 100 mls @ 200 mls/hr IVPB DAILY [facility]; Protocol Last Admin: 10/20/18 11:54 Dose: 200 mls/hr Loratadine (Claritin -) 10 mg PO DAILY [facility] Last Admin: 10/20/18 11:56 Dose: 10 mg Mirtazapine (Remeron -) 7.5 mg PO HS [facility] Last Admin: 10/19/18 21:52 Dose: 7.5 mg Polyethylene Glycol (Miralax (For Daily Use) -) 17 gm GT BID [facility] Last Admin: 10/20/18 15:51 Dose: 17 gm Pregabalin 100 mg/ Pregabalin (50 mg) 150 mg PO BID [facility] Last Admin: 10/20/18 11:52 Dose: 150 mg Senna (Senna Oral Solution -) 8.8 mg PO HS [facility] Last Admin: 10/19/18 21:53 Dose: 8.8 mg Sertraline HCl (Zoloft -) 100 mg PO DAILY [facility] Last Admin: 10/20/18 11:53 Dose: 100 mg Ursodiol (Actigal -) 300 mg PO BID [facility] Last Admin: 10/20/18 11:53 Dose: 300 mg cxray with right sided effusion a/p ecoli bacteremia continue rocephin day #8 do not feel she has pneumonig clinically improving suspect effusion due to volume overload thrombocytopenia improving MS with chronic trach/peg/perera-have request ent to see for trach change sacral ulcer- local care Problem List - Problems (1) Septic shock Code(s): A41.9 - SEPSIS, UNSPECIFIED ORGANISM; R65.21 - SEVERE SEPSIS WITH SEPTIC SHOCK (2) Acute renal insufficiency Code(s): N28.9 - DISORDER OF KIDNEY AND URETER, UNSPECIFIED (3) Functional 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 (4) Sacral decubitus ulcer, stage IV Code(s): L89.154 - PRESSURE ULCER OF SACRAL REGION, STAGE 4
--- NOTE | 2018-10-20 22:38 | PN ---
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), on trach collar with vent at night, 2L home O2, with G-tube, chronic hyponatremia, hypothyroidism, trigeminal neuralgia, recurrent UTI, wheelchair bound, who presents to the ED after being found unrepsonsive, hypoxemic, and hypotensive Allergies/Adverse Reactions: Allergies Allergy/AdvReac Type Severity Reaction Status Date / Time chloral hydrate Allergy Intermediate Rash Verified 10/12/18 12:02 [Chloral Hydrate] azathioprine [From Imuran] Allergy Rash Verified 10/12/18 12:02 azathioprine sodium Allergy Rash Verified 10/12/18 12:02 [From Imuran] adhesive tape AdvReac Severe sensitivity Verified 10/12/18 12:02 to glue adhesive AdvReac Unknown Verified 10/12/18 12:02 Home Medications: Ambulatory Orders Amlodipine Besylate [Norvasc -] 5 mg PO DAILY 10/12/18 Clonazepam [Klonopin] 0.5 mg PO BID 10/12/18 Hydralazine HCl 50 mg PO TID 10/12/18 Levocetirizine Dihydrochloride 5 mg PO DAILY 10/12/18 Loratadine 10 mg PO DAILY 10/12/18 Metoprolol Tartrate [Lopressor -] 50 mg PO BID 10/12/18 Mirtazapine 7.5 mg PO HS 10/12/18 Pregabalin [Lyrica -] 150 mg PO BID 10/12/18 Sertraline HCl [Zoloft] 100 mg PO DAILY 10/12/18 Sodium Chloride 1,000 mg PO BID 10/12/18 Ursodiol [Actigal] 300 mg PO BID 10/12/18 Anemia: Yes GI Disorders: Yes Disorders: Yes (baclofen implant) HTN: Yes Seizures: Yes - Surgical History Appendectomy: Yes (FEEDING TUBE) GI Surgery: (BACLOFEN IMPLANT) Lung Surgery: Yes (TRACH) - Immunization History Immunization Up to Date: Yes - Suicide/Smoking/Psychosocial Hx Smoking History: Current every day smoker AFVSS Normocephalic, atraumatic, patient is somnolent but opens her eyes to verbal stimuli and appears to blink in response; Decreased breath sounds RRR Abdomen is soft, nontender, feeding tube is noted Minimal bilateral lower extremity edema Stage IV left gluteal ulcers noted; Patient opens eyes to verbal stimuli. she is a quadriplegic A/P Patient is a 53-year-old female with spastic MS, with resultant quadriplegia, trached and intermittently vent dependent presents with hypoxemia, decreased mentation and significant hypotension. P CBC reveals significant leukocytosis with baseline anemia. CMP revealed significantly elevated BUN and creatinine consistent with a GI. Broad-spectrum antibiotics for E. coli bacteremia Leukocytosis/thrombocytopenia due to bacteremia Platelets normal in 09/23 Improving with treatment of infection anemia of chronic disease
[2018-10-20] MEDS: MIRTAZAPINE 15 MG TABLET (FP) PO SCH (22:59)
[2018-10-20] MEDS: SENNOSIDES 8.8 MG/5 ML BULK BOTTLE PO SCH (23:08)
[2018-10-21] MEDS: ACETAMINOPHEN 325 MG TABLET (FP) PO PRN (03:46)
[2018-10-21] MEDS ORDERED: PREGABALIN 50 MG CAPSULE ONE ×3 (08:20→22:49)
[2018-10-21] MEDS ORDERED: PREGABALIN 100 MG CAPSULE ONE ×3 (08:20→22:49)
[2018-10-21] MEDS ORDERED: DEXTROSE 5%-WATER 100 ML IVPB ONE (08:22)
[2018-10-21] MEDS: HYDROCORTISONE SOD SUCCINATE 100 MG/2 ML VIAL IVPUSH SCH (11:19)
--- NOTE | 2018-10-21 11:19 | PN ---
Progress Note, SOFTWARE APPLICATIONS DEVELOPER - Note Progress Note: Selected Entries 10/20/18 10/20/18 10/20/18 02:00 06:00 10:00 Supper Temperature 97.6 F 98.6 F 98.0 F 10/20/18 10/20/18 10/20/18 13:51 18:30 19:32 Supper NPO Temperature 98.4 F 98.2 F 10/20/18 10/21/18 10/21/18 22:00 02:00 06:00 Supper Temperature 97.7 F 97.4 F L 97.5 F L Laboratory Tests 10/20/18 11:12 WBC 5.5 Looking much stronger. On trach collar/PMV. Tolerating diet. c/o pain from Trigeminal Neuralgia.
[2018-10-21] MEDS: AMINO ACIDS/PROTEIN HYDROLYS 30 ML LIQUID.PKT PO SCH ×2 (11:20→17:12)
[2018-10-21] MEDS: DOCUSATE NA 100 MG/10 ML UNIT-DOSE CUPS PO PRN (11:20)
[2018-10-21] MEDS: PREGABALIN 100 MG, PREGABALIN 50 MG PO SCH ×3 (11:21→23:12)
[2018-10-21] MEDS: HEPARIN NA (PORCINE) 5,000 UNITS/ML 1ML VIAL SQ SCH ×2 (11:22→23:12)
[2018-10-21] MEDS: LORATADINE 10 MG TABLET PO SCH (11:22)
[2018-10-21] MEDS: URSODIOL 300 MG CAPSULE PO SCH ×2 (11:22→23:12)
[2018-10-21] MEDS: clonazePAM 0.5 MG TABLET PO SCH ×2 (11:22→23:12)
[2018-10-21] MEDS: SERTRALINE HCL 50 MG TABLET (FP) PO SCH (11:22)
[2018-10-21] MEDS: POLYETHYLENE GLYCOL 3350 119 GM BTL GT SCH ×2 (11:23→23:13)
--- NOTE | 2018-10-21 11:52 | PN ---
Progress Note (short form) - Note Progress Note: alert NAD requesting trach change back on trach collar no complaints Vital Signs Period Temp Pulse Resp BP Sys/Morillo Pulse Ox Last 24 Hr 97.4 F-98.4 F 46-76 14-16 101-151/51-86 96-99 no thrush cor-rrr lungs decreased bs at bases abd soft,ngt site clean ext +edema of the hands and feet CBC, BMP 10/20/18 11:12 10/19/18 06:45 Microbiology 10/19/18 19:00 Blood - Peripheral Venous Blood Culture - Preliminary NO GROWTH OBTAINED AFTER 24 HOURS, INCUBATION TO CONTINUE FOR 4 DAYS. 10/19/18 19:00 Blood - Peripheral Venous Blood Culture - Preliminary NO GROWTH OBTAINED AFTER 24 HOURS, INCUBATION TO CONTINUE FOR 4 DAYS. 10/12/18 11:30 Blood - Peripheral Venous Blood Culture - Final NO GROWTH AFTER 5 DAYS INCUBATION 10/12/18 17:20 Urine - Urine - Catheterized Urine Culture - Final Kluyvera Ascorbata Klebsiella Pneumoniae 10/13/18 01:50 Sputum - Endotrachea Suction/Ventilator Gram Stain - Final 10/13/18 01:50 Sputum - Endotrachea Suction/Ventilator Sputum Culture - Final Pseudomonas Aeruginosa 10/12/18 11:30 Blood - Peripheral Venous Blood Culture - Final Escherichia Coli 10/12/18 17:20 Urine For Antigen Detection Legionella Antigen - Final 10/12/18 17:20 Urine For Antigen Detection Streptococcus pneumoniae Antigen (M - Final 10/12/18 11:30 Urine - Urine - Catheterized Urine Culture - Final Contaminated: Please Repeat Current Medications Acetaminophen (Tylenol -) 650 mg PO Q6H PRN PRN Reason: FEVER Last Admin: 10/21/18 03:46 Dose: 650 mg Amino Acids (Prosource No Carb Liquid Pkt) 30 ml PO BID@0800,1730 [facility] Last Admin: 10/21/18 11:20 Dose: 30 ml Clonazepam (Klonopin -) 0.5 mg PO BID [facility] Last Admin: 10/21/18 11:22 Dose: 0.5 mg Docusate Sodium (Colace Liquid -) 100 mg PO DAILY PRN PRN Reason: CONSTIPATION Last Admin: 10/21/18 11:20 Dose: 100 mg Heparin Sodium (Porcine) (Heparin -) 5,000 unit SQ BID [facility] Last Admin: 10/21/18 11:22 Dose: 5,000 unit Hydrocortisone Sodium Succinate (Solu-Cortef -) 25 mg IVPUSH BID [facility] Last Admin: 10/21/18 11:19 Dose: 25 mg Loratadine (Claritin -) 10 mg PO DAILY [facility] Last Admin: 10/21/18 11:22 Dose: 10 mg Mirtazapine (Remeron -) 7.5 mg PO HS [facility] Last Admin: 10/20/18 22:59 Dose: 7.5 mg Polyethylene Glycol (Miralax (For Daily Use) -) 17 gm GT BID [facility] Last Admin: 10/21/18 11:23 Dose: 17 gm Pregabalin 100 mg/ Pregabalin (50 mg) 150 mg PO BID [facility] Last Admin: 10/21/18 11:21 Dose: 150 mg Senna (Senna Oral Solution -) 8.8 mg PO HS [facility] Last Admin: 10/20/18 23:08 Dose: 8.8 mg Sertraline HCl (Zoloft -) 100 mg PO DAILY [facility] Last Admin: 10/21/18 11:22 Dose: 100 mg Ursodiol (Actigal -) 300 mg PO BID [facility] Last Admin: 10/21/18 11:22 Dose: 300 mg cxray with right sided effusion a/p ecoli bacteremia continue rocephin day #9 of 10, rocephin renewed do not feel she has pneumonig clinically improving suspect effusion due to volume overload thrombocytopenia improving MS with chronic trach/peg/perera-have request ent to see for trach change sacral ulcer- local care consider d/c steroids please call back if needed d/w mother at bedside Problem List - Problems (1) Septic shock Code(s): A41.9 - SEPSIS, UNSPECIFIED ORGANISM; R65.21 - SEVERE SEPSIS WITH SEPTIC SHOCK (2) Acute renal insufficiency Code(s): N28.9 - DISORDER OF KIDNEY AND URETER, UNSPECIFIED (3) Functional 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 (4) Sacral decubitus ulcer, stage IV Code(s): L89.154 - PRESSURE ULCER OF SACRAL REGION, STAGE 4
[2018-10-21] MEDS ORDERED: MINERAL OIL ENEMA 133 ML ENEMA PR ONE (12:19)
--- NOTE | 2018-10-21 12:26 | PN ---
Progress Note, Physician Chief Complaint: patient seen and examined no BM - Current Medication List Current Medications: Active Medications Acetaminophen (Tylenol -) 650 mg PO Q6H PRN PRN Reason: FEVER Last Admin: 10/21/18 03:46 Dose: 650 mg Amino Acids (Prosource No Carb Liquid Pkt) 30 ml PO BID@0800,1730 [facility] Last Admin: 10/21/18 11:20 Dose: 30 ml Clonazepam (Klonopin -) 0.5 mg PO BID [facility] Last Admin: 10/21/18 11:22 Dose: 0.5 mg Docusate Sodium (Colace Liquid -) 100 mg PO DAILY PRN PRN Reason: CONSTIPATION Last Admin: 10/21/18 11:20 Dose: 100 mg Heparin Sodium (Porcine) (Heparin -) 5,000 unit SQ BID [facility] Last Admin: 10/21/18 11:22 Dose: 5,000 unit Ceftriaxone Sodium 2 gm/ (Dextrose) 100 mls @ 200 mls/hr IVPB DAILY [facility]; Protocol Loratadine (Claritin -) 10 mg PO DAILY [facility] Last Admin: 10/21/18 11:22 Dose: 10 mg Mineral Oil (Fleet Mineral Oil Rectal Enema -) 133 ml HI NOW ONE Stop: 10/21/18 12:20 Mirtazapine (Remeron -) 7.5 mg PO HS [facility] Last Admin: 10/20/18 22:59 Dose: 7.5 mg Polyethylene Glycol (Miralax (For Daily Use) -) 17 gm GT BID [facility] Last Admin: 10/21/18 11:23 Dose: 17 gm Pregabalin 100 mg/ Pregabalin (50 mg) 150 mg PO BID [facility] Last Admin: 10/21/18 11:21 Dose: 150 mg Senna (Senna Oral Solution -) 8.8 mg PO HS [facility] Last Admin: 10/20/18 23:08 Dose: 8.8 mg Sertraline HCl (Zoloft -) 100 mg PO DAILY [facility] Last Admin: 10/21/18 11:22 Dose: 100 mg Ursodiol (Actigal -) 300 mg PO BID [facility] Last Admin: 10/21/18 11:22 Dose: 300 mg - Objective Vital Signs: Vital Signs Temperature 97.5 F L 10/21/18 06:00 Pulse Rate 75 10/21/18 08:42 Respiratory Rate 14 10/21/18 06:00 Blood Pressure 131/66 10/21/18 06:00 O2 Sat by Pulse Oximetry (%) 99 10/21/18 08:42 Constitutional: Yes: Calm Neck: Yes: Other (trach) Cardiovascular: Yes: Regular Rate and Rhythm, S1, S2 Respiratory: Yes: CTA Bilaterally Gastrointestinal: Yes: Normal Bowel Sounds, Soft, Other (g tube) Edema: Yes Neurological: Yes: Alert, Oriented, Pre-Existing Deficit Labs: CBC, BMP 10/20/18 11:12 10/19/18 06:45 INR, PTT INR 1.13 (0.83-1.09) H 10/12/18 11:30 Problem List - Problems (1) Bacteremia due to Escherichia coli Assessment/Plan: rocephin day Microbiology 10/12/18 11:30 Blood - Peripheral Venous Blood Culture - Final Escherichia Coli Code(s): R78.81 - BACTEREMIA (2) Constipation Assessment/Plan: abdominal xray noted miralax enema Code(s): K59.00 - CONSTIPATION, UNSPECIFIED (3) Septic shock Assessment/Plan: resolved taper and stop steroids Code(s): A41.9 - SEPSIS, UNSPECIFIED ORGANISM; R65.21 - SEVERE SEPSIS WITH SEPTIC SHOCK (4) Decubital ulcer Assessment/Plan: appreciate wound care /plastic surgeon note management per plastic surgeon note Code(s): L89.90 - PRESSURE ULCER OF UNSPECIFIED SITE, UNSPECIFIED STAGE Qualifiers: Pressure injury location: unspecified location Pressure injury stage: unspecified pressure injury stage Qualified Code(s): L89.90 - Pressure ulcer of unspecified site, unspecified stage (5) Hx of multiple sclerosis Assessment/Plan: perera cath - chronic for neurogenic bladder g tube due dysphagia- FEN frequent turn and position dvt ppx Code(s): Z86.69 - PERSONAL HISTORY OF DIS OF THE NERVOUS SYS AND SENSE ORGANS (6) Hypernatremia Assessment/Plan: inc free water in tube feeds trend sodium level Code(s): E87.0 - HYPEROSMOLALITY AND HYPERNATREMIA
[2018-10-21] MEDS ORDERED: IRON SUCROSE INJECTION 300 MG in SODIUM CHLORIDE 235 ML IVPB ONE (12:27)
--- NOTE | 2018-10-21 12:33 | PN ---
Progress Note (short form) - Note Progress Note: Renal follow up for MANNY Pt seen and examined at the bedside awake on vent reports pain in simran no sob, cp, abd pain on tube feeds and free water Vital Signs Temperature 97.5 F L 10/21/18 06:00 Pulse Rate 75 10/21/18 08:42 Respiratory Rate 14 10/21/18 06:00 Blood Pressure 131/66 10/21/18 06:00 O2 Sat by Pulse Oximetry (%) 99 10/21/18 08:42 Intake & Output 10/18/18 10/19/18 10/20/18 10/21/18 23:59 23:59 23:59 23:59 Intake Total 1158 2130 1750 420 Output Total 2150 6150 3700 300 Balance -992 -4020 -1950 120 NAD on vent via trach RRR Dec BS, no rales or wheeze soft, NT/ND + edema in LE CBC, BMP 10/20/18 11:12 10/19/18 06:45 Current Medications Acetaminophen (Tylenol -) 650 mg PO Q6H PRN PRN Reason: FEVER Last Admin: 10/21/18 03:46 Dose: 650 mg Amino Acids (Prosource No Carb Liquid Pkt) 30 ml PO BID@0800,1730 [facility] Last Admin: 10/21/18 11:20 Dose: 30 ml Clonazepam (Klonopin -) 0.5 mg PO BID [facility] Last Admin: 10/21/18 11:22 Dose: 0.5 mg Docusate Sodium (Colace Liquid -) 100 mg PO DAILY PRN PRN Reason: CONSTIPATION Last Admin: 10/21/18 11:20 Dose: 100 mg Heparin Sodium (Porcine) (Heparin -) 5,000 unit SQ BID [facility] Last Admin: 10/21/18 11:22 Dose: 5,000 unit Ceftriaxone Sodium 2 gm/ (Dextrose) 100 mls @ 200 mls/hr IVPB DAILY [facility]; Protocol Iron Sucrose 300 mg/ Sodium (Chloride) 250 mls @ 250 mls/hr IVPB ONCE ONE Stop: 10/21/18 13:26 Loratadine (Claritin -) 10 mg PO DAILY [facility] Last Admin: 10/21/18 11:22 Dose: 10 mg Mirtazapine (Remeron -) 7.5 mg PO HS [facility] Last Admin: 10/20/18 22:59 Dose: 7.5 mg Polyethylene Glycol (Miralax (For Daily Use) -) 17 gm GT BID [facility] Last Admin: 10/21/18 11:23 Dose: 17 gm Pregabalin 100 mg/ Pregabalin (50 mg) 150 mg PO BID [facility] Last Admin: 10/21/18 11:21 Dose: 150 mg Senna (Senna Oral Solution -) 8.8 mg PO HS [facility] Last Admin: 10/20/18 23:08 Dose: 8.8 mg Sertraline HCl (Zoloft -) 100 mg PO DAILY [facility] Last Admin: 10/21/18 11:22 Dose: 100 mg Ursodiol (Actigal -) 300 mg PO BID [facility] Last Admin: 10/21/18 11:22 Dose: 300 mg 53 year old woman with history of multiple sclerosis s/p trach on vent as needed, hypothyroidism, recurrent UTI's who presented from home with AMS and found to have Sepsis syndrome with MANNY. #MANNY in setting of sepsis/renal hypoprofusion vs obstruction (occluded Raza) now improved #Hyperkalemia in setting of MANNY (improved) #Sepsis r/o PNA vs. UTI #Multiple sclerosis #Hypothyroidism #Hx of SIADH Renal function stable no new labs as of today,will check BMP to monitor Na trend Hemodynamically stable at this time pending repeat Na levels continue low K tube feeds for now and trend electrolytes daily continue supportive care Abx as per ID Tyshawn Doe DO
[2018-10-21 12:48] LABS: HEMOGLOBIN 8.1 GM/dL (10.7-15.3); MCH 31.5 pg (25.7-33.7); MCHC 32.3 g/dl (32.0-36.0); MEAN CELL VOLUME 97.3 fl (80-96); MEAN PLT VOLUME 9.9 fl (7.5-11.1); PLATELET COUNT 125 K/MM3 (134-434); RBC 2.57 M/mm3 (3.60-5.2); RDW 16.6 % (11.6-15.6); WHITE BLOOD COUNT 5.9 K/mm3 (4.0-10.0)
[2018-10-21 13:16] LABS: BLOOD UREA NITROGEN 26.3 mg/dL (7-18); CALCIUM 8.2 mg/dL (8.5-10.1); CREATININE 0.5 mg/dL (0.55-1.3); POTASSIUM 3.3 mmol/L (3.5-5.1)
--- NOTE | 2018-10-21 14:03 | PN ---
Progress Note, Physician History of Present Illness: PULMONARY ALERT,ON TRACH COLLAR,-RESP DISTRESS,C/O DISCOMFORT AT TRACH SITE - Current Medication List Current Medications: Active Medications Acetaminophen (Tylenol -) 650 mg PO Q6H PRN PRN Reason: FEVER Last Admin: 10/21/18 03:46 Dose: 650 mg Amino Acids (Prosource No Carb Liquid Pkt) 30 ml PO BID@0800,1730 [facility] Last Admin: 10/21/18 11:20 Dose: 30 ml Clonazepam (Klonopin -) 0.5 mg PO BID [facility] Last Admin: 10/21/18 11:22 Dose: 0.5 mg Docusate Sodium (Colace Liquid -) 100 mg PO DAILY PRN PRN Reason: CONSTIPATION Last Admin: 10/21/18 11:20 Dose: 100 mg Heparin Sodium (Porcine) (Heparin -) 5,000 unit SQ BID [facility] Last Admin: 10/21/18 11:22 Dose: 5,000 unit Ceftriaxone Sodium 2 gm/ (Dextrose) 100 mls @ 200 mls/hr IVPB DAILY [facility]; Protocol Loratadine (Claritin -) 10 mg PO DAILY [facility] Last Admin: 10/21/18 11:22 Dose: 10 mg Mirtazapine (Remeron -) 7.5 mg PO HS [facility] Last Admin: 10/20/18 22:59 Dose: 7.5 mg Polyethylene Glycol (Miralax (For Daily Use) -) 17 gm GT BID [facility] Last Admin: 10/21/18 11:23 Dose: 17 gm Pregabalin 100 mg/ Pregabalin (50 mg) 150 mg PO BID [facility] Last Admin: 10/21/18 11:21 Dose: 150 mg Senna (Senna Oral Solution -) 8.8 mg PO HS [facility] Last Admin: 10/20/18 23:08 Dose: 8.8 mg Sertraline HCl (Zoloft -) 100 mg PO DAILY [facility] Last Admin: 10/21/18 11:22 Dose: 100 mg Ursodiol (Actigal -) 300 mg PO BID [facility] Last Admin: 10/21/18 11:22 Dose: 300 mg - Objective Vital Signs: Vital Signs Temperature 97.5 F L 10/21/18 06:00 Pulse Rate 75 10/21/18 08:42 Respiratory Rate 14 10/21/18 09:00 Blood Pressure 131/66 10/21/18 06:00 O2 Sat by Pulse Oximetry (%) 99 10/21/18 08:42 Constitutional: Yes: Well Nourished, Calm Eyes: Yes: WNL HENT: Yes: WNL Neck: Yes: Supple (TRACH) Cardiovascular: Yes: Regular Rate and Rhythm, S1, S2 Respiratory: Yes: Rhonchi (FEW SCATTERED LUCAS RHONCHI) Gastrointestinal: Yes: Normal Bowel Sounds, Soft Extremities: Yes: WNL Edema: Yes Labs: CBC, BMP 10/21/18 12:08 10/21/18 12:08 INR, PTT INR 1.13 (0.83-1.09) H 10/12/18 11:30 - ....Imaging Chest X-ray: Report Reviewed, Image Reviewed (INCREASED RLL INFILTRATE/EFFUSION) Problem List - Problems (1) Hypotension Code(s): I95.9 - HYPOTENSION, UNSPECIFIED (2) Pneumonia Code(s): J18.9 - PNEUMONIA, UNSPECIFIED ORGANISM Qualifiers: Pneumonia type: due to unspecified organism Laterality: right Lung location: lower lobe of lung Qualified Code(s): J18.1 - Lobar pneumonia, unspecified organism (3) Septic shock Code(s): A41.9 - SEPSIS, UNSPECIFIED ORGANISM; R65.21 - SEVERE SEPSIS WITH SEPTIC SHOCK (4) Acute on chronic respiratory failure with hypoxia and hypercapnia Code(s): J96.21 - ACUTE AND CHRONIC RESPIRATORY FAILURE WITH HYPOXIA; J96.22 - ACUTE AND CHRONIC RESPIRATORY FAILURE WITH HYPERCAPNIA (5) Anemia Code(s): D64.9 - ANEMIA, UNSPECIFIED (6) Chronic hypercapnic respiratory failure Code(s): J96.12 - CHRONIC RESPIRATORY FAILURE WITH HYPERCAPNIA (7) Edema Code(s): R60.9 - EDEMA, UNSPECIFIED (8) Functional quadriplegia Code(s): R53.2 - FUNCTIONAL QUADRIPLEGIA (9) Functional 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 (10) Hx of multiple sclerosis Code(s): Z86.69 - PERSONAL HISTORY OF DIS OF THE NERVOUS SYS AND SENSE ORGANS (11) Neurogenic bladder Code(s): N31.9 - NEUROMUSCULAR DYSFUNCTION OF BLADDER, UNSPECIFIED (12) Sepsis Code(s): A41.9 - SEPSIS, UNSPECIFIED ORGANISM Qualifiers: Sepsis type: sepsis due to unspecified organism Qualified Code(s): A41.9 - Sepsis, unspecified organism Assessment/Plan ASSESSMENT/PLAN: Resolved Septic Shock secondary to urinary tract source Pneumonia Acute Hypoxic Hypercapneic Respiratory Failure improved Anemia Hypothyroidism Multiple Sclerosis Trigeminal Neuralgia Gallstones ABX per ID Vent support ac mode at night Trach collar as tolerated VTE prophylaxis Enteral feeds ENT evaluation DR ELDER
--- NOTE | 2018-10-21 14:58 | CONSULT ---
Consult - text type - Consultation Consultation Note: NEUROLOGY CONSULT GREATLY APPRECIATED: Events reviewed and discussed with staff. Pt examined with mother at bedside. Geetha is well-known to our service. 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 S/P Baclofen pump. On Lyrica 150 mg q 12. Indwelling perera with Recurrent UTIs. S/P trache with ventilation required at night. Progressive dysphagia, s/p PEG. Now admitted after being found unresponsive at home, hypotensive and hypoxic ( unclear if on ventilator) requiring brief ICU stay. Stay complicated by aspiration pneumonia and UTI, now on IV Rocephin. Also complicated by Iron Anemia, now on IV Venifor. Pt c/o ongoing facial pains despite lyrica 150 mg q12H and "new" "worm" feelings in back of scalp that awaken her from sleep. GODFREY: Comfortable on ventilator, s/p trache, PEG, perera. Hands edematous. NEURO: Awake, alert. Follows commands. CN II-XII: decreased vision. Full martin. Decreased tongue ESSENCE's Flaccid areflexic tetraplegia. Plantars silent Decreased pinch in all fours IMP: Advanced MS with tetraplegia, respiratory compromise, severe dysphagia. Worsened by Toxic-metabolic encephalopathy (aspiration PNA, recurrent UTI ). Trigeminal Neuralgia Suggest: Continue antibiotics and hydration and IV Iron supplementation Increase Pregabalin (lyrica) to 150 mg q8H Continue Clonazepam 0.5 mg qHs, mirtazapine, sertraline Update PFT's including inspiratory and expiratory pressures-if worsening respiratory reserve pt may require more daytime ventilatory support. On eshould consider that the admission event may have been primary respiratory distress due to fatigue. Bedside PT/ incentive spirometry. Thank you very much, Rom Conroy MD
[2018-10-21] MEDS: CEFTRIAXONE 2 GM in DEXTROSE 5%-WATER 100 ML IVPB SCH (17:12)
[2018-10-21] MEDS: MIRTAZAPINE 15 MG TABLET (FP) PO SCH (23:12)
[2018-10-21] MEDS ORDERED: PT OWN MED DRAWER 7, Y5N ONE (23:13)
[2018-10-21] MEDS: SENNOSIDES 8.8 MG/5 ML BULK BOTTLE PO SCH (23:14)
[2018-10-22] MEDS ORDERED: PREGABALIN 50 MG CAPSULE ONE ×3 (05:32→21:56)
[2018-10-22] MEDS ORDERED: PREGABALIN 100 MG CAPSULE ONE ×3 (05:32→21:56)
[2018-10-22] MEDS: PREGABALIN 100 MG, PREGABALIN 50 MG PO SCH ×3 (05:34→22:05)
[2018-10-22] MEDS: ACETAMINOPHEN 325 MG TABLET (FP) PO PRN ×3 (08:08→22:04)
[2018-10-22] MEDS: AMINO ACIDS/PROTEIN HYDROLYS 30 ML LIQUID.PKT PO SCH ×2 (08:09→17:30)
[2018-10-22] MEDS ORDERED: DEXTROSE 5%-WATER 100 ML IVPB ONE (10:52)
[2018-10-22] MEDS: POLYETHYLENE GLYCOL 3350 119 GM BTL GT SCH ×2 (11:08→22:05)
[2018-10-22] MEDS: HEPARIN NA (PORCINE) 5,000 UNITS/ML 1ML VIAL SQ SCH ×2 (11:09→22:04)
[2018-10-22] MEDS: CEFTRIAXONE 2 GM in DEXTROSE 5%-WATER 100 ML IVPB SCH (11:09)
[2018-10-22] MEDS: DOCUSATE NA 100 MG/10 ML UNIT-DOSE CUPS PO PRN (11:09)
[2018-10-22] MEDS: URSODIOL 300 MG CAPSULE PO SCH ×2 (11:09→22:04)
[2018-10-22] MEDS: LORATADINE 10 MG TABLET PO SCH (11:09)
[2018-10-22] MEDS: clonazePAM 0.5 MG TABLET PO SCH ×2 (11:10→22:04)
[2018-10-22] MEDS: SERTRALINE HCL 50 MG TABLET (FP) PO SCH (11:10)
[2018-10-22 11:41] LABS: ALBUMIN 1.7 g/dl (3.4-5.0); ALK PHOS 125 U/L (45-117); ANION GAP 3 MMOL/L (8-16); BILIRUBIN,TOTAL < 0.1 mg/dL (0.2-1); BLOOD UREA NITROGEN 26.2 mg/dL (7-18); CALCIUM 7.9 mg/dL (8.5-10.1); CHLORIDE 104 mmol/L (98-107); CO2 38 mmol/L (21-32); CREATININE 0.4 mg/dL (0.55-1.3); GLUCOSE,RANDOM 101 mg/dL (74-106); MAGNESIUM 1.9 mg/dL (1.8-2.4); POTASSIUM 3.3 mmol/L (3.5-5.1); SGOT/AST 15 U/L (15-37); SGPT/ALT 14 U/L (13-61); SODIUM 145 mmol/L (136-145); TOT PROT 6.3 g/dl (6.4-8.2)
--- NOTE | 2018-10-22 12:06 | PN ---
Progress Note (short form) - Note Progress Note: Awake in NAD on Trach collar. Reports facial pain. No acute events overnight. Intake & Output 10/19/18 10/20/18 10/21/18 10/22/18 23:59 23:59 23:59 23:59 Intake Total 2130 1750 1160 100 Output Total 6150 3700 1150 500 Balance -4020 -1950 10 -400 Last Vital Signs Temp Pulse Resp BP Pulse Ox 98.6 F 62 22 H 116/65 98 10/22/18 09:00 10/22/18 09:00 10/22/18 09:00 10/22/18 09:00 10/22/18 08:43 Active Medications Acetaminophen (Tylenol -) 650 mg PO Q6H PRN PRN Reason: FEVER Last Admin: 10/22/18 08:08 Dose: 650 mg Amino Acids (Prosource No Carb Liquid Pkt) 30 ml PO BID@0800,1730 [facility] Last Admin: 10/22/18 08:09 Dose: 30 ml Clonazepam (Klonopin -) 0.5 mg PO BID [facility] Last Admin: 10/22/18 11:10 Dose: 0.5 mg Docusate Sodium (Colace Liquid -) 100 mg PO DAILY PRN PRN Reason: CONSTIPATION Last Admin: 10/22/18 11:09 Dose: 100 mg Heparin Sodium (Porcine) (Heparin -) 5,000 unit SQ BID [facility] Last Admin: 10/22/18 11:09 Dose: 5,000 unit Ceftriaxone Sodium 2 gm/ (Dextrose) 100 mls @ 200 mls/hr IVPB DAILY [facility]; Protocol Last Admin: 10/22/18 11:09 Dose: 200 mls/hr Loratadine (Claritin -) 10 mg PO DAILY [facility] Last Admin: 10/22/18 11:09 Dose: 10 mg Mirtazapine (Remeron -) 7.5 mg PO HS [facility] Last Admin: 10/21/18 23:12 Dose: 7.5 mg Polyethylene Glycol (Miralax (For Daily Use) -) 17 gm GT BID [facility] Last Admin: 10/22/18 11:08 Dose: 17 gm Pregabalin 100 mg/ Pregabalin (50 mg) 150 mg PO TID [facility] Last Admin: 10/22/18 05:34 Dose: 150 mg Senna (Senna Oral Solution -) 8.8 mg PO HS [facility] Last Admin: 10/21/18 23:14 Dose: 8.8 mg Sertraline HCl (Zoloft -) 100 mg PO DAILY [facility] Last Admin: 10/22/18 11:10 Dose: 100 mg Ursodiol (Actigal -) 300 mg PO BID [facility] Last Admin: 10/22/18 11:09 Dose: 300 mg Constitutional: Yes: Awake and alert in NAD on Trach collar Eyes: Yes: WNL HENT: Yes: WNL Neck: Yes: Supple (TRACH) Cardiovascular: Yes: Regular Rate and Rhythm, S1, S2 Respiratory: Yes: Few scattered Rhonchi Gastrointestinal: Yes: Normal Bowel Sounds, Soft Extremities: Yes: WNL Edema: Yes Labs: Laboratory Results - last 24 hr 10/21/18 10/21/18 10/22/18 12:08 12:08 11:05 WBC 5.9 RBC 2.57 L Hgb 8.1 L Hct 25.0 L MCV 97.3 H MCH 31.5 MCHC 32.3 RDW 16.6 H Plt Count 125 L MPV 9.9 Sodium 145 145 Potassium 3.3 L 3.3 L Chloride 104 104 Carbon Dioxide 38 H 38 H Anion Gap 2 L 3 L BUN 26.3 H 26.2 H Creatinine 0.5 L 0.4 L Est GFR (CKD-EPI)AfAm 127.17 136.86 Est GFR (CKD-EPI)NonAf 109.72 118.08 Random Glucose 122 H 101 Calcium 8.2 L 7.9 L Magnesium 1.9 Total Bilirubin < 0.1 L AST 15 ALT 14 Alkaline Phosphatase 125 H Total Protein 6.3 L Albumin 1.7 L Problem List - Problems (1) Hypotension Code(s): I95.9 - HYPOTENSION, UNSPECIFIED (2) Pneumonia Code(s): J18.9 - PNEUMONIA, UNSPECIFIED ORGANISM Qualifiers: Pneumonia type: due to unspecified organism Laterality: right Lung location: lower lobe of lung Qualified Code(s): J18.1 - Lobar pneumonia, unspecified organism (3) Septic shock Code(s): A41.9 - SEPSIS, UNSPECIFIED ORGANISM; R65.21 - SEVERE SEPSIS WITH SEPTIC SHOCK (4) Acute on chronic respiratory failure with hypoxia and hypercapnia Code(s): J96.21 - ACUTE AND CHRONIC RESPIRATORY FAILURE WITH HYPOXIA; J96.22 - ACUTE AND CHRONIC RESPIRATORY FAILURE WITH HYPERCAPNIA (5) Anemia Code(s): D64.9 - ANEMIA, UNSPECIFIED (6) Chronic hypercapnic respiratory failure Code(s): J96.12 - CHRONIC RESPIRATORY FAILURE WITH HYPERCAPNIA (7) Edema Code(s): R60.9 - EDEMA, UNSPECIFIED (8) Functional quadriplegia Code(s): R53.2 - FUNCTIONAL QUADRIPLEGIA (9) Functional 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 (10) Hx of multiple sclerosis Code(s): Z86.69 - PERSONAL HISTORY OF DIS OF THE NERVOUS SYS AND SENSE ORGANS (11) Neurogenic bladder Code(s): N31.9 - NEUROMUSCULAR DYSFUNCTION OF BLADDER, UNSPECIFIED (12) Sepsis Code(s): A41.9 - SEPSIS, UNSPECIFIED ORGANISM Qualifiers: Sepsis type: sepsis due to unspecified organism Qualified Code(s): A41.9 - Sepsis, unspecified organism Assessment/Plan Resolved Septic Shock secondary to urinary tract source Pneumonia Acute Hypoxic Hypercapneic Respiratory Failure improved Anemia Hypothyroidism Multiple Sclerosis Trigeminal Neuralgia Gallstones ABX per ID: Consider DC Vent support QHS and PRN Trach collar as tolerated VTE prophylaxis Enteral feeds Monitor off systemic steroids DC planning Dr Fox
[2018-10-22] MEDS ORDERED: SODIUM PHOSPHATE/NA BIPHOS 133 ML ENEMA PR ONE (12:18)
[2018-10-22] MEDS ORDERED: POTASSIUM CHLORIDE ORAL LIQUID 20 MEQ/15 ML GT ONE (12:20)
--- NOTE | 2018-10-22 12:20 | PN ---
Progress Note, Physician Chief Complaint: AWAKE AND HER MOTHER IS BEDSIDE NO ACUTE CHANGES OVERNIGHT POTASSIUM LOW - Current Medication List Current Medications: Active Medications Acetaminophen (Tylenol -) 650 mg PO Q6H PRN PRN Reason: FEVER Last Admin: 10/22/18 08:08 Dose: 650 mg Amino Acids (Prosource No Carb Liquid Pkt) 30 ml PO BID@0800,1730 [facility] Last Admin: 10/22/18 08:09 Dose: 30 ml Clonazepam (Klonopin -) 0.5 mg PO BID [facility] Last Admin: 10/22/18 11:10 Dose: 0.5 mg Docusate Sodium (Colace Liquid -) 100 mg PO DAILY PRN PRN Reason: CONSTIPATION Last Admin: 10/22/18 11:09 Dose: 100 mg Heparin Sodium (Porcine) (Heparin -) 5,000 unit SQ BID [facility] Last Admin: 10/22/18 11:09 Dose: 5,000 unit Ceftriaxone Sodium 2 gm/ (Dextrose) 100 mls @ 200 mls/hr IVPB DAILY [facility]; Protocol Last Admin: 10/22/18 11:09 Dose: 200 mls/hr Loratadine (Claritin -) 10 mg PO DAILY [facility] Last Admin: 10/22/18 11:09 Dose: 10 mg Mirtazapine (Remeron -) 7.5 mg PO HS [facility] Last Admin: 10/21/18 23:12 Dose: 7.5 mg Polyethylene Glycol (Miralax (For Daily Use) -) 17 gm GT BID [facility] Last Admin: 10/22/18 11:08 Dose: 17 gm Pregabalin 100 mg/ Pregabalin (50 mg) 150 mg PO TID [facility] Last Admin: 10/22/18 05:34 Dose: 150 mg Senna (Senna Oral Solution -) 8.8 mg PO HS [facility] Last Admin: 10/21/18 23:14 Dose: 8.8 mg Sertraline HCl (Zoloft -) 100 mg PO DAILY [facility] Last Admin: 10/22/18 11:10 Dose: 100 mg Ursodiol (Actigal -) 300 mg PO BID [facility] Last Admin: 10/22/18 11:09 Dose: 300 mg - Objective Vital Signs: Vital Signs Temperature 98.6 F 10/22/18 09:00 Pulse Rate 62 10/22/18 09:00 Respiratory Rate 22 H 10/22/18 09:00 Blood Pressure 116/65 10/22/18 09:00 O2 Sat by Pulse Oximetry (%) 98 10/22/18 08:43 Constitutional: Yes: No Distress Cardiovascular: Yes: Regular Rate and Rhythm Respiratory: Yes: Mechanically Ventilated Gastrointestinal: Yes: Other (GTUBE) Genitourinary: Yes: Raza Present Musculoskeletal: Yes: Muscle Weakness Edema: Yes Integumentary: Yes: Rash Neurological: Yes: Pre-Existing Deficit, Weakness Labs: CBC, BMP 10/21/18 12:08 10/22/18 11:05 INR, PTT INR 1.13 (0.83-1.09) H 10/12/18 11:30 Problem List - Problems (1) Acute renal insufficiency Code(s): N28.9 - DISORDER OF KIDNEY AND URETER, UNSPECIFIED (2) Hyperkalemia Code(s): E87.5 - HYPERKALEMIA (3) Hypotension Code(s): I95.9 - HYPOTENSION, UNSPECIFIED (4) Pneumonia Code(s): J18.9 - PNEUMONIA, UNSPECIFIED ORGANISM Qualifiers: Pneumonia type: due to unspecified organism Laterality: right Lung location: lower lobe of lung Qualified Code(s): J18.1 - Lobar pneumonia, unspecified organism (5) Abnormal LFTs Code(s): R94.5 - ABNORMAL RESULTS OF LIVER FUNCTION STUDIES (6) Acute on chronic respiratory failure with hypoxia and hypercapnia Code(s): J96.21 - ACUTE AND CHRONIC RESPIRATORY FAILURE WITH HYPOXIA; J96.22 - ACUTE AND CHRONIC RESPIRATORY FAILURE WITH HYPERCAPNIA (7) Adrenal insufficiency Code(s): E27.40 - UNSPECIFIED ADRENOCORTICAL INSUFFICIENCY (8) Functional quadriplegia Code(s): R53.2 - FUNCTIONAL QUADRIPLEGIA (9) Functional 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 Assessment/Plan IV ABX PER ID ID F/U APPRECIATED NOURISHMENT OPTIMIZED RESPIRATORY SUPPORT ON VENT WITH TRACH-COLLAR ADVANCED DIRECTIVES NEED TO BE REVIEWED DVT PROPHYLAXIS PT EVAL
[2018-10-22] MEDS ORDERED: PT OWN MED DRAWER 7, Y5N ONE ×2 (18:11→21:57)
[2018-10-22] MEDS ORDERED: NYSTATIN 100,000 UNIT/GM TOPICAL CREAM 15 GM TUBE TP SCH (22:00)
[2018-10-22] MEDS: MIRTAZAPINE 15 MG TABLET (FP) PO SCH (22:04)
[2018-10-22] MEDS: NYSTATIN 100000 UNIT/GM TOPICAL OINTMENT 15 GM TUBE TP SCH (22:05)
[2018-10-22] MEDS: SENNOSIDES 8.8 MG/5 ML BULK BOTTLE PO SCH (22:06)
[2018-10-23] MEDS ORDERED: PREGABALIN 100 MG CAPSULE ONE ×3 (06:05→22:41)
[2018-10-23] MEDS ORDERED: PREGABALIN 50 MG CAPSULE ONE ×3 (06:05→22:41)
[2018-10-23] MEDS: PREGABALIN 100 MG, PREGABALIN 50 MG PO SCH ×3 (06:10→22:43)
[2018-10-23] MEDS ORDERED: DEXTROSE 5%-WATER 100 ML IVPB ONE (10:15)
[2018-10-23] MEDS ORDERED: PT OWN MED DRAWER 7, Y5N ONE (10:15)
[2018-10-23] MEDS: clonazePAM 0.5 MG TABLET PO SCH ×2 (10:29→22:43)
[2018-10-23] MEDS: ACETAMINOPHEN 325 MG TABLET (FP) PO PRN ×3 (10:29→22:44)
[2018-10-23] MEDS: HEPARIN NA (PORCINE) 5,000 UNITS/ML 1ML VIAL SQ SCH ×2 (10:29→22:43)
[2018-10-23] MEDS: LORATADINE 10 MG TABLET PO SCH (10:29)
[2018-10-23] MEDS: CEFTRIAXONE 2 GM in DEXTROSE 5%-WATER 100 ML IVPB SCH (10:29)
[2018-10-23] MEDS: URSODIOL 300 MG CAPSULE PO SCH ×2 (10:29→22:42)
[2018-10-23] MEDS: SERTRALINE HCL 50 MG TABLET (FP) PO SCH (10:30)
[2018-10-23] MEDS: POLYETHYLENE GLYCOL 3350 119 GM BTL GT SCH ×2 (10:31→22:44)
[2018-10-23] MEDS: AMINO ACIDS/PROTEIN HYDROLYS 30 ML LIQUID.PKT PO SCH ×2 (10:31→17:27)
[2018-10-23] MEDS: NYSTATIN 100000 UNIT/GM TOPICAL OINTMENT 15 GM TUBE TP SCH ×2 (11:25→22:46)
[2018-10-23 12:16] LABS: HEMATOCRIT 26.1 % (32.4-45.2); HEMOGLOBIN 8.4 GM/dL (10.7-15.3); MCH 31.4 pg (25.7-33.7); MCHC 32.2 g/dl (32.0-36.0); MEAN CELL VOLUME 97.4 fl (80-96); MEAN PLT VOLUME 9.9 fl (7.5-11.1); PLATELET COUNT 167 K/MM3 (134-434); RBC 2.68 M/mm3 (3.60-5.2); RDW 16.5 % (11.6-15.6); WHITE BLOOD COUNT 9.2 K/mm3 (4.0-10.0)
[2018-10-23 12:29] LABS: BLOOD UREA NITROGEN 24.6 mg/dL (7-18); CALCIUM 8.6 mg/dL (8.5-10.1); CREATININE 0.5 mg/dL (0.55-1.3); PHOSPHOROUS 3.2 mg/dL (2.5-4.9); POTASSIUM 3.9 mmol/L (3.5-5.1)
--- NOTE | 2018-10-23 12:32 | PN ---
Progress Note, Physician Chief Complaint: AWAKE ALERT MOTHER BEDSIDE - Current Medication List Current Medications: Active Medications Acetaminophen (Tylenol -) 650 mg PO Q6H PRN PRN Reason: FEVER Last Admin: 10/23/18 10:29 Dose: 650 mg Amino Acids (Prosource No Carb Liquid Pkt) 30 ml PO BID@0800,1730 [facility] Last Admin: 10/23/18 10:31 Dose: 30 ml Clonazepam (Klonopin -) 0.5 mg PO BID [facility] Last Admin: 10/23/18 10:29 Dose: 0.5 mg Docusate Sodium (Colace Liquid -) 100 mg PO DAILY PRN PRN Reason: CONSTIPATION Last Admin: 10/22/18 11:09 Dose: 100 mg Heparin Sodium (Porcine) (Heparin -) 5,000 unit SQ BID [facility] Last Admin: 10/23/18 10:29 Dose: 5,000 unit Ceftriaxone Sodium 2 gm/ (Dextrose) 100 mls @ 200 mls/hr IVPB DAILY [facility]; Protocol Last Admin: 10/23/18 10:29 Dose: 200 mls/hr Loratadine (Claritin -) 10 mg PO DAILY [facility] Last Admin: 10/23/18 10:29 Dose: 10 mg Mirtazapine (Remeron -) 7.5 mg PO HS [facility] Last Admin: 10/22/18 22:04 Dose: 7.5 mg Nystatin (Mycostatin Ointment -) 1 applic TP BID [facility] Last Admin: 10/23/18 11:25 Dose: 1 applic Polyethylene Glycol (Miralax (For Daily Use) -) 17 gm GT BID [facility] Last Admin: 10/23/18 10:31 Dose: 17 gm Pregabalin 100 mg/ Pregabalin (50 mg) 150 mg PO TID [facility] Last Admin: 10/23/18 06:10 Dose: 150 mg Senna (Senna Oral Solution -) 8.8 mg PO HS [facility] Last Admin: 10/22/18 22:06 Dose: 8.8 mg Sertraline HCl (Zoloft -) 100 mg PO DAILY [facility] Last Admin: 10/23/18 10:30 Dose: 100 mg Ursodiol (Actigal -) 300 mg PO BID [facility] Last Admin: 10/23/18 10:29 Dose: 300 mg - Objective Vital Signs: Vital Signs Temperature 97.6 F 10/23/18 10:00 Pulse Rate 94 H 08/18/19 10:00 Respiratory Rate 20 10/23/18 10:00 Blood Pressure 156/82 10/23/18 10:00 O2 Sat by Pulse Oximetry (%) 96 10/23/18 10:00 Constitutional: Yes: Mild Distress Cardiovascular: Yes: Regular Rate and Rhythm Respiratory: Yes: Diminished, Mechanically Ventilated Gastrointestinal: Yes: Soft Genitourinary: Yes: Incontinence Musculoskeletal: Yes: Muscle Weakness Edema: Yes Integumentary: Yes: Rash Wound/Incision: Yes: Dressing Dry and Intact Neurological: Yes: Pre-Existing Deficit ...Motor Strength: LLE, RLE Psychiatric: Yes: Other Labs: CBC, BMP 10/23/18 11:16 INR, PTT INR 1.13 (0.83-1.09) H 10/12/18 11:30 Problem List - Problems (1) Acute renal insufficiency Code(s): N28.9 - DISORDER OF KIDNEY AND URETER, UNSPECIFIED (2) Hyperkalemia Code(s): E87.5 - HYPERKALEMIA (3) Hypotension Code(s): I95.9 - HYPOTENSION, UNSPECIFIED (4) Pneumonia Code(s): J18.9 - PNEUMONIA, UNSPECIFIED ORGANISM Qualifiers: Pneumonia type: due to unspecified organism Laterality: right Lung location: lower lobe of lung Qualified Code(s): J18.1 - Lobar pneumonia, unspecified organism (5) Abnormal LFTs Code(s): R94.5 - ABNORMAL RESULTS OF LIVER FUNCTION STUDIES (6) Acute on chronic respiratory failure with hypoxia and hypercapnia Code(s): J96.21 - ACUTE AND CHRONIC RESPIRATORY FAILURE WITH HYPOXIA; J96.22 - ACUTE AND CHRONIC RESPIRATORY FAILURE WITH HYPERCAPNIA (7) Adrenal insufficiency Code(s): E27.40 - UNSPECIFIED ADRENOCORTICAL INSUFFICIENCY (8) Functional quadriplegia Code(s): R53.2 - FUNCTIONAL QUADRIPLEGIA (9) Functional 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 Assessment/Plan IV ABX PER ID ID F/U APPRECIATED IV IRON ORDERED FOR ANEMIA NOURISHMENT OPTIMIZED RESPIRATORY SUPPORT ON VENT WITH TRACH-COLLAR ENT CONSULT FOR TRACHEOSTOMY CHANGE ADVANCED DIRECTIVES NEED TO BE REVIEWED DVT PROPHYLAXIS PT EVAL
--- NOTE | 2018-10-23 13:14 | PN ---
Progress Note (short form) - Note Progress Note: Sleeping in NAD on Trach collar. Mother at the bedside. Facial pain is better. No acute events overnight. Intake & Output 10/20/18 10/21/18 10/22/18 10/23/18 23:59 23:59 23:59 23:59 Intake Total 1750 1157 190 2040 Output Total 3700 1150 3000 600 Balance -1950 10 -2150 450 Last Vital Signs Temp Pulse Resp BP Pulse Ox 97.6 F 72 20 156/82 94 L 10/23/18 10:00 10/23/18 12:32 10/23/18 10:00 10/23/18 10:00 10/23/18 12:32 Active Medications Acetaminophen (Tylenol -) 650 mg PO Q6H PRN PRN Reason: FEVER Last Admin: 10/23/18 10:29 Dose: 650 mg Amino Acids (Prosource No Carb Liquid Pkt) 30 ml PO BID@0800,1730 [facility] Last Admin: 10/23/18 10:31 Dose: 30 ml Clonazepam (Klonopin -) 0.5 mg PO BID [facility] Last Admin: 10/23/18 10:29 Dose: 0.5 mg Docusate Sodium (Colace Liquid -) 100 mg PO DAILY PRN PRN Reason: CONSTIPATION Last Admin: 10/22/18 11:09 Dose: 100 mg Heparin Sodium (Porcine) (Heparin -) 5,000 unit SQ BID [facility] Last Admin: 10/23/18 10:29 Dose: 5,000 unit Ceftriaxone Sodium 2 gm/ (Dextrose) 100 mls @ 200 mls/hr IVPB DAILY [facility]; Protocol Last Admin: 10/23/18 10:29 Dose: 200 mls/hr Ferric Carboxymaltose 750 mg/ (Sodium Chloride) 265 mls @ 530 mls/hr IVPB ONCE ONE Stop: 10/23/18 13:59 Loratadine (Claritin -) 10 mg PO DAILY [facility] Last Admin: 10/23/18 10:29 Dose: 10 mg Mirtazapine (Remeron -) 7.5 mg PO HS [facility] Last Admin: 10/22/18 22:04 Dose: 7.5 mg Nystatin (Mycostatin Ointment -) 1 applic TP BID [facility] Last Admin: 10/23/18 11:25 Dose: 1 applic Polyethylene Glycol (Miralax (For Daily Use) -) 17 gm GT BID [facility] Last Admin: 10/23/18 10:31 Dose: 17 gm Pregabalin 100 mg/ Pregabalin (50 mg) 150 mg PO TID [facility] Last Admin: 10/23/18 06:10 Dose: 150 mg Senna (Senna Oral Solution -) 8.8 mg PO HS [facility] Last Admin: 10/22/18 22:06 Dose: 8.8 mg Sertraline HCl (Zoloft -) 100 mg PO DAILY [facility] Last Admin: 10/23/18 10:30 Dose: 100 mg Ursodiol (Actigal -) 300 mg PO BID [facility] Last Admin: 10/23/18 10:29 Dose: 300 mg Constitutional: Yes: Sleeping in NAD on Trach collar Eyes: Yes: WNL HENT: Yes: WNL Neck: Yes: Supple (TRACH) Cardiovascular: Yes: Regular Rate and Rhythm, S1, S2 Respiratory: Yes: Few scattered Rhonchi Gastrointestinal: Yes: Normal Bowel Sounds, Soft Extremities: Yes: WNL Edema: Yes Labs: Laboratory Results - last 24 hr 10/23/18 10/23/18 11:16 11:16 WBC 9.2 RBC 2.68 L Hgb 8.4 L Hct 26.1 L MCV 97.4 H MCH 31.4 MCHC 32.2 RDW 16.5 H Plt Count 167 D MPV 9.9 Sodium 145 Potassium 3.9 Chloride 104 Carbon Dioxide 38 H Anion Gap 3 L BUN 24.6 H Creatinine 0.5 L Est GFR (CKD-EPI)AfAm 127.17 Est GFR (CKD-EPI)NonAf 109.72 Random Glucose 155 H Calcium 8.6 Phosphorus 3.2 Magnesium 2.0 Problem List - Problems (1) Hypotension Code(s): I95.9 - HYPOTENSION, UNSPECIFIED (2) Pneumonia Code(s): J18.9 - PNEUMONIA, UNSPECIFIED ORGANISM Qualifiers: Pneumonia type: due to unspecified organism Laterality: right Lung location: lower lobe of lung Qualified Code(s): J18.1 - Lobar pneumonia, unspecified organism (3) Septic shock Code(s): A41.9 - SEPSIS, UNSPECIFIED ORGANISM; R65.21 - SEVERE SEPSIS WITH SEPTIC SHOCK (4) Acute on chronic respiratory failure with hypoxia and hypercapnia Code(s): J96.21 - ACUTE AND CHRONIC RESPIRATORY FAILURE WITH HYPOXIA; J96.22 - ACUTE AND CHRONIC RESPIRATORY FAILURE WITH HYPERCAPNIA (5) Anemia Code(s): D64.9 - ANEMIA, UNSPECIFIED (6) Chronic hypercapnic respiratory failure Code(s): J96.12 - CHRONIC RESPIRATORY FAILURE WITH HYPERCAPNIA (7) Edema Code(s): R60.9 - EDEMA, UNSPECIFIED (8) Functional quadriplegia Code(s): R53.2 - FUNCTIONAL QUADRIPLEGIA (9) Functional 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 (10) Hx of multiple sclerosis Code(s): Z86.69 - PERSONAL HISTORY OF DIS OF THE NERVOUS SYS AND SENSE ORGANS (11) Neurogenic bladder Code(s): N31.9 - NEUROMUSCULAR DYSFUNCTION OF BLADDER, UNSPECIFIED (12) Sepsis Code(s): A41.9 - SEPSIS, UNSPECIFIED ORGANISM Qualifiers: Sepsis type: sepsis due to unspecified organism Qualified Code(s): A41.9 - Sepsis, unspecified organism Assessment/Plan Resolved Septic Shock secondary to urinary tract source Pneumonia Acute Hypoxic Hypercapneic Respiratory Failure improved Anemia Hypothyroidism Multiple Sclerosis Trigeminal Neuralgia Gallstones ABX per ID: Consider DC Vent support QHS and PRN Trach collar as tolerated VTE prophylaxis Enteral feeds Monitor off systemic steroids DC planning Dr Fox
[2018-10-23] MEDS ORDERED: FERRIC CARBOXYMALTOSE 750 MG in SODIUM CHLORIDE 250 ML IVPB ONE (13:30)
[2018-10-23] MEDS: MIRTAZAPINE 15 MG TABLET (FP) PO SCH (22:43)
[2018-10-23] MEDS: SENNOSIDES 8.8 MG/5 ML BULK BOTTLE PO SCH (22:45)
[2018-10-24] MEDS ORDERED: PREGABALIN 50 MG CAPSULE ONE ×3 (06:27→21:40)
[2018-10-24] MEDS ORDERED: PREGABALIN 100 MG CAPSULE ONE ×3 (06:27→21:40)
[2018-10-24] MEDS: PREGABALIN 100 MG, PREGABALIN 50 MG PO SCH ×3 (06:31→22:42)
[2018-10-24] MEDS ORDERED: PT OWN MED DRAWER 7, Y5N ONE (09:20)
[2018-10-24] MEDS ORDERED: DEXTROSE 5%-WATER 100 ML IVPB ONE (09:21)
[2018-10-24] MEDS: SERTRALINE HCL 50 MG TABLET (FP) PO SCH (10:27)
[2018-10-24] MEDS: HEPARIN NA (PORCINE) 5,000 UNITS/ML 1ML VIAL SQ SCH ×2 (10:27→22:42)
[2018-10-24] MEDS: AMINO ACIDS/PROTEIN HYDROLYS 30 ML LIQUID.PKT PO SCH ×2 (10:27→18:09)
[2018-10-24] MEDS: clonazePAM 0.5 MG TABLET PO SCH ×2 (10:28→22:42)
[2018-10-24] MEDS: URSODIOL 300 MG CAPSULE PO SCH ×2 (10:28→22:42)
[2018-10-24] MEDS: NYSTATIN 100000 UNIT/GM TOPICAL OINTMENT 15 GM TUBE TP SCH ×2 (10:28→22:43)
[2018-10-24] MEDS: POLYETHYLENE GLYCOL 3350 119 GM BTL GT SCH ×2 (10:28→22:43)
[2018-10-24] MEDS: CEFTRIAXONE 2 GM in DEXTROSE 5%-WATER 100 ML IVPB SCH (10:28)
[2018-10-24] MEDS: LORATADINE 10 MG TABLET PO SCH (10:28)
--- NOTE | 2018-10-24 13:00 | PN ---
Progress Note, Physician History of Present Illness: PULMONARY AWAKE,COMFORTABLE ON TRACH COLLAR,TOLERATING WELL ,-RESP DISTRESS - Current Medication List Current Medications: Active Medications Acetaminophen (Tylenol -) 650 mg PO Q6H PRN PRN Reason: FEVER Last Admin: 10/23/18 22:44 Dose: 650 mg Amino Acids (Prosource No Carb Liquid Pkt) 30 ml PO BID@0800,1730 [facility] Last Admin: 10/24/18 10:27 Dose: 30 ml Clonazepam (Klonopin -) 0.5 mg PO BID [facility] Last Admin: 10/24/18 10:28 Dose: 0.5 mg Docusate Sodium (Colace Liquid -) 100 mg PO DAILY PRN PRN Reason: CONSTIPATION Last Admin: 10/22/18 11:09 Dose: 100 mg Heparin Sodium (Porcine) (Heparin -) 5,000 unit SQ BID [facility] Last Admin: 10/24/18 10:27 Dose: 5,000 unit Ceftriaxone Sodium 2 gm/ (Dextrose) 100 mls @ 200 mls/hr IVPB DAILY [facility]; Protocol Last Admin: 10/24/18 10:28 Dose: 200 mls/hr Loratadine (Claritin -) 10 mg PO DAILY [facility] Last Admin: 10/24/18 10:28 Dose: 10 mg Mirtazapine (Remeron -) 7.5 mg PO HS [facility] Last Admin: 10/23/18 22:43 Dose: 7.5 mg Nystatin (Mycostatin Ointment -) 1 applic TP BID [facility] Last Admin: 10/24/18 10:28 Dose: 1 applic Polyethylene Glycol (Miralax (For Daily Use) -) 17 gm GT BID [facility] Last Admin: 10/24/18 10:28 Dose: Not Given Pregabalin 100 mg/ Pregabalin (50 mg) 150 mg PO TID [facility] Last Admin: 10/24/18 06:31 Dose: 150 mg Senna (Senna Oral Solution -) 8.8 mg PO HS [facility] Last Admin: 10/23/18 22:45 Dose: 8.8 mg Sertraline HCl (Zoloft -) 100 mg PO DAILY [facility] Last Admin: 10/24/18 10:27 Dose: 100 mg Ursodiol (Actigal -) 300 mg PO BID [facility] Last Admin: 10/24/18 10:28 Dose: 300 mg - Objective Vital Signs: Vital Signs Temperature 97.9 F 10/24/18 09:00 Pulse Rate 78 10/24/18 11:10 Respiratory Rate 14 10/24/18 09:00 Blood Pressure 148/87 10/24/18 09:00 O2 Sat by Pulse Oximetry (%) 96 10/24/18 11:10 Constitutional: Yes: Well Nourished, Calm Eyes: Yes: WNL HENT: Yes: WNL Neck: Yes: Supple (TRACH) Cardiovascular: Yes: Regular Rate and Rhythm, S1, S2 Respiratory: Yes: Rhonchi (FEW SCATTERED RHONCHI) Gastrointestinal: Yes: Normal Bowel Sounds, Soft Extremities: Yes: WNL Edema: Yes Labs: CBC, BMP Problem List - Problems (1) Hypotension Code(s): I95.9 - HYPOTENSION, UNSPECIFIED (2) Pneumonia Code(s): J18.9 - PNEUMONIA, UNSPECIFIED ORGANISM Qualifiers: Pneumonia type: due to unspecified organism Laterality: right Lung location: lower lobe of lung Qualified Code(s): J18.1 - Lobar pneumonia, unspecified organism (3) Septic shock Code(s): A41.9 - SEPSIS, UNSPECIFIED ORGANISM; R65.21 - SEVERE SEPSIS WITH SEPTIC SHOCK (4) Acute on chronic respiratory failure with hypoxia and hypercapnia Code(s): J96.21 - ACUTE AND CHRONIC RESPIRATORY FAILURE WITH HYPOXIA; J96.22 - ACUTE AND CHRONIC RESPIRATORY FAILURE WITH HYPERCAPNIA (5) Anemia Code(s): D64.9 - ANEMIA, UNSPECIFIED (6) Chronic hypercapnic respiratory failure Code(s): J96.12 - CHRONIC RESPIRATORY FAILURE WITH HYPERCAPNIA (7) Edema Code(s): R60.9 - EDEMA, UNSPECIFIED (8) Functional quadriplegia Code(s): R53.2 - FUNCTIONAL QUADRIPLEGIA (9) Functional 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 (10) Hx of multiple sclerosis Code(s): Z86.69 - PERSONAL HISTORY OF DIS OF THE NERVOUS SYS AND SENSE ORGANS (11) Neurogenic bladder Code(s): N31.9 - NEUROMUSCULAR DYSFUNCTION OF BLADDER, UNSPECIFIED (12) Sepsis Code(s): A41.9 - SEPSIS, UNSPECIFIED ORGANISM Qualifiers: Sepsis type: sepsis due to unspecified organism Qualified Code(s): A41.9 - Sepsis, unspecified organism Assessment/Plan ASSESSMENT/PLAN: Resolved Septic Shock secondary to urinary tract source Pneumonia improved Acute Hypoxic Hypercapneic Respiratory Failure improved Anemia Hypothyroidism Multiple Sclerosis Trigeminal Neuralgia Gallstones Vent support ac mode at night Trach collar as tolerated VTE prophylaxis Enteral feeds ENT evaluation for trach change pending DR ELDER
--- NOTE | 2018-10-24 14:59 | PN ---
Progress Note, Physician Chief Complaint: Pneumonia Sepsis UTI acute on chronic respiratory failure History of Present Illness: Previous notes and events reviewed awake and alert NAD tolerating trach with O2 via trach denies complaints of chest pain - Current Medication List Current Medications: Active Medications Acetaminophen (Tylenol -) 650 mg PO Q6H PRN PRN Reason: FEVER Last Admin: 10/23/18 22:44 Dose: 650 mg Amino Acids (Prosource No Carb Liquid Pkt) 30 ml PO BID@0800,1730 [facility] Last Admin: 10/24/18 10:27 Dose: 30 ml Clonazepam (Klonopin -) 0.5 mg PO BID [facility] Last Admin: 10/24/18 10:28 Dose: 0.5 mg Docusate Sodium (Colace Liquid -) 100 mg PO DAILY PRN PRN Reason: CONSTIPATION Last Admin: 10/22/18 11:09 Dose: 100 mg Heparin Sodium (Porcine) (Heparin -) 5,000 unit SQ BID [facility] Last Admin: 10/24/18 10:27 Dose: 5,000 unit Ceftriaxone Sodium 2 gm/ (Dextrose) 100 mls @ 200 mls/hr IVPB DAILY [facility]; Protocol Last Admin: 10/24/18 10:28 Dose: 200 mls/hr Loratadine (Claritin -) 10 mg PO DAILY [facility] Last Admin: 10/24/18 10:28 Dose: 10 mg Mirtazapine (Remeron -) 7.5 mg PO HS [facility] Last Admin: 10/23/18 22:43 Dose: 7.5 mg Nystatin (Mycostatin Ointment -) 1 applic TP BID [facility] Last Admin: 10/24/18 10:28 Dose: 1 applic Polyethylene Glycol (Miralax (For Daily Use) -) 17 gm GT BID [facility] Last Admin: 10/24/18 10:28 Dose: Not Given Pregabalin 100 mg/ Pregabalin (50 mg) 150 mg PO TID [facility] Last Admin: 10/24/18 13:56 Dose: 150 mg Senna (Senna Oral Solution -) 8.8 mg PO HS [facility] Last Admin: 10/23/18 22:45 Dose: 8.8 mg Sertraline HCl (Zoloft -) 100 mg PO DAILY [facility] Last Admin: 10/24/18 10:27 Dose: 100 mg Ursodiol (Actigal -) 300 mg PO BID [facility] Last Admin: 10/24/18 10:28 Dose: 300 mg - Objective Vital Signs: Vital Signs Temperature 97.9 F 10/24/18 09:00 Pulse Rate 78 10/24/18 11:10 Respiratory Rate 14 10/24/18 09:00 Blood Pressure 148/87 10/24/18 09:00 O2 Sat by Pulse Oximetry (%) 96 10/24/18 11:10 Constitutional: Yes: No Distress, Calm Eyes: Yes: Conjunctiva Clear HENT: Yes: Atraumatic Cardiovascular: Yes: Regular Rate and Rhythm Respiratory: Yes: Regular, Diminished, Other (trach with O2 via trach collar) Gastrointestinal: Yes: Normal Bowel Sounds, Soft, Other (PEG tube) Genitourinary: Yes: Raza Present Musculoskeletal: Yes: Muscle Weakness Extremities: Yes: WNL Edema: No Wound/Incision: Yes: Dressing Dry and Intact Neurological: Yes: Alert, Pre-Existing Deficit, Weakness Psychiatric: Yes: Alert Labs: CBC, BMP 10/23/18 11:16 10/23/18 11:16 INR, PTT INR 1.13 (0.83-1.09) H 10/12/18 11:30 Microbiology 10/19/18 19:00 Blood - Peripheral Venous Blood Culture - Preliminary NO GROWTH OBTAINED AFTER 96 HOURS, INCUBATION TO CONTINUE FOR 1 DAYS. 10/19/18 19:00 Blood - Peripheral Venous Blood Culture - Preliminary NO GROWTH OBTAINED AFTER 96 HOURS, INCUBATION TO CONTINUE FOR 1 DAYS. 10/12/18 11:30 Blood - Peripheral Venous Blood Culture - Final NO GROWTH AFTER 5 DAYS INCUBATION 10/12/18 17:20 Urine - Urine - Catheterized Urine Culture - Final Kluyvera Ascorbata Klebsiella Pneumoniae 10/13/18 01:50 Sputum - Endotrachea Suction/Ventilator Gram Stain - Final 10/13/18 01:50 Sputum - Endotrachea Suction/Ventilator Sputum Culture - Final Pseudomonas Aeruginosa 10/12/18 11:30 Blood - Peripheral Venous Blood Culture - Final Escherichia Coli 10/12/18 17:20 Urine For Antigen Detection Legionella Antigen - Final 10/12/18 17:20 Urine For Antigen Detection Streptococcus pneumoniae Antigen (M - Final 10/12/18 11:30 Urine - Urine - Catheterized Urine Culture - Final Contaminated: Please Repeat Problem List - Problems (1) Acute renal insufficiency Assessment/Plan: -BUN/Cr 24.6/0.5 -Renal consult -Renal US -US shows right kidney with mild to moderate hydronephrosis and without gross evidence of stones Code(s): N28.9 - DISORDER OF KIDNEY AND URETER, UNSPECIFIED (2) Pneumonia Assessment/Plan: -ID on board -no leukocytosis -afebrile -Ceftriaxone -CXR shows RLL zone airspace opacities, atelectasis changes without blunting of the right costophrenic angles -Pulm on board -keep SpO2 >90% -BC and Urine Legionella neg Code(s): J18.9 - PNEUMONIA, UNSPECIFIED ORGANISM Qualifiers: Pneumonia type: due to unspecified organism Laterality: right Lung location: lower lobe of lung Qualified Code(s): J18.1 - Lobar pneumonia, unspecified organism (3) Acute on chronic respiratory failure with hypoxia and hypercapnia Assessment/Plan: -Pulm consult -mechanically ventilated -keep SpO2 >90% -CXR shows RLL zone airspace opacities, atelectasis changes without blunting of the right costophrenic angles -pending ENT consult for trach change Code(s): J96.21 - ACUTE AND CHRONIC RESPIRATORY FAILURE WITH HYPOXIA; J96.22 - ACUTE AND CHRONIC RESPIRATORY FAILURE WITH HYPERCAPNIA (4) Anemia Assessment/Plan: -Hg 8.4 -monitor Hg daily -transfuse for Hg <8.0 Code(s): D64.9 - ANEMIA, UNSPECIFIED (5) Functional quadriplegia Assessment/Plan: -PT -fall precautions Code(s): R53.2 - FUNCTIONAL QUADRIPLEGIA (6) Hx of multiple sclerosis Assessment/Plan: -fall precaution -PT -turn q2h and offloading Code(s): Z86.69 - PERSONAL HISTORY OF DIS OF THE NERVOUS SYS AND SENSE ORGANS (7) Hypothyroid Assessment/Plan: -Levothyroxine Code(s): E03.9 - HYPOTHYROIDISM, UNSPECIFIED (8) Sepsis Assessment/Plan: -ID on board -no leukocytosis -afebrile -Ceftriaxone -CXR shows RLL zone airspace opacities, atelectasis changes without blunting of the right costophrenic angles -Pulm on board -keep SpO2 >90% -BC and Urine Legionella neg -UA 3+ leuks, 3+ blood, 3+ protein -UC positive -Sputum culture positive Code(s): A41.9 - SEPSIS, UNSPECIFIED ORGANISM Qualifiers: Sepsis type: sepsis due to unspecified organism Qualified Code(s): A41.9 - Sepsis, unspecified organism (9) Hypotension Assessment/Plan: -resolved -monitor BP Code(s): I95.9 - HYPOTENSION, UNSPECIFIED (10) Gallstones Assessment/Plan: -US shows hepatomegaly, gallstones without wall thickening, trace of pericholecystic free fluid, dilated CBD 9mm -Surgical and GI consult -Actigal Code(s): K80.20 - CALCULUS OF GALLBLADDER W/O CHOLECYSTITIS W/O OBSTRUCTION (11) Altered mental status Assessment/Plan: -resolving-a&ox3 on exam -/ sepsis Code(s): R41.82 - ALTERED MENTAL STATUS, UNSPECIFIED Assessment/Plan see problem list dvt ppx
--- NOTE | 2018-10-24 15:10 | PN ---
Progress Note (short form) - Note Progress Note: Renal follow up for MANNY Pt seen and examined at the bedside on vent via trach no overnight events Vital Signs Temperature 97.9 F 10/24/18 09:00 Pulse Rate 78 10/24/18 11:10 Respiratory Rate 14 10/24/18 09:00 Blood Pressure 148/87 10/24/18 09:00 O2 Sat by Pulse Oximetry (%) 96 10/24/18 11:10 Intake & Output 10/21/18 10/22/18 10/23/18 10/24/18 23:59 23:59 23:59 23:59 Intake Total 1822 556 1931 750 Output Total 1150 3000 2100 50 Balance 10 -2150 -70 700 NAD on vent via trach RRR Dec BS, no rales or wheeze soft, NT/ND + edema in LE CBC, BMP 10/23/18 11:16 10/23/18 11:16 Current Medications Acetaminophen (Tylenol -) 650 mg PO Q6H PRN PRN Reason: FEVER Last Admin: 10/23/18 22:44 Dose: 650 mg Amino Acids (Prosource No Carb Liquid Pkt) 30 ml PO BID@0800,1730 [facility] Last Admin: 10/24/18 10:27 Dose: 30 ml Clonazepam (Klonopin -) 0.5 mg PO BID [facility] Last Admin: 10/24/18 10:28 Dose: 0.5 mg Docusate Sodium (Colace Liquid -) 100 mg PO DAILY PRN PRN Reason: CONSTIPATION Last Admin: 10/22/18 11:09 Dose: 100 mg Heparin Sodium (Porcine) (Heparin -) 5,000 unit SQ BID [facility] Last Admin: 10/24/18 10:27 Dose: 5,000 unit Ceftriaxone Sodium 2 gm/ (Dextrose) 100 mls @ 200 mls/hr IVPB DAILY [facility]; Protocol Last Admin: 10/24/18 10:28 Dose: 200 mls/hr Loratadine (Claritin -) 10 mg PO DAILY [facility] Last Admin: 10/24/18 10:28 Dose: 10 mg Mirtazapine (Remeron -) 7.5 mg PO HS [facility] Last Admin: 10/23/18 22:43 Dose: 7.5 mg Nystatin (Mycostatin Ointment -) 1 applic TP BID [facility] Last Admin: 10/24/18 10:28 Dose: 1 applic Polyethylene Glycol (Miralax (For Daily Use) -) 17 gm GT BID [facility] Last Admin: 10/24/18 10:28 Dose: Not Given Pregabalin 100 mg/ Pregabalin (50 mg) 150 mg PO TID [facility] Last Admin: 10/24/18 13:56 Dose: 150 mg Senna (Senna Oral Solution -) 8.8 mg PO HS [facility] Last Admin: 10/23/18 22:45 Dose: 8.8 mg Sertraline HCl (Zoloft -) 100 mg PO DAILY [facility] Last Admin: 10/24/18 10:27 Dose: 100 mg Ursodiol (Actigal -) 300 mg PO BID [facility] Last Admin: 10/24/18 10:28 Dose: 300 mg 53 year old woman with history of multiple sclerosis s/p trach on vent as needed, hypothyroidism, recurrent UTI's who presented from home with AMS and found to have Sepsis syndrome with MANNY. #MANNY in setting of sepsis/renal hypoprofusion vs obstruction (occluded Raza) now improved #Hyperkalemia in setting of MANNY (improved) #Sepsis r/o PNA vs. UTI #Multiple sclerosis #Hypothyroidism #Hx of SIADH Renal function stable Electrolytes are within normal limits. Can continue free water as ordered. If K remains consistently < 4, can consider change back to non-potassium restricted feeds Trend electrolytes daily while in the hospital Tyshawn Doe DO
[2018-10-24] MEDS: ACETAMINOPHEN 325 MG TABLET (FP) PO PRN (18:09)
[2018-10-24] MEDS: MIRTAZAPINE 15 MG TABLET (FP) PO SCH (22:42)
[2018-10-24] MEDS: SENNOSIDES 8.8 MG/5 ML BULK BOTTLE PO SCH (22:43)
[2018-10-25] MEDS ORDERED: PREGABALIN 100 MG CAPSULE ONE ×3 (06:13→21:06)
[2018-10-25] MEDS ORDERED: PREGABALIN 50 MG CAPSULE ONE ×3 (06:13→21:06)
[2018-10-25] MEDS: ACETAMINOPHEN 325 MG TABLET (FP) PO PRN ×4 (06:45→22:45)
[2018-10-25] MEDS: PREGABALIN 100 MG, PREGABALIN 50 MG PO SCH ×3 (06:52→21:22)
[2018-10-25 08:12] LABS: HEMATOCRIT 25.2 % (32.4-45.2); HEMOGLOBIN 8.1 GM/dL (10.7-15.3); MCH 31.6 pg (25.7-33.7); MCHC 32.1 g/dl (32.0-36.0); MEAN CELL VOLUME 98.3 fl (80-96); MEAN PLT VOLUME 9.8 fl (7.5-11.1); PLATELET COUNT 179 K/MM3 (134-434); RBC 2.56 M/mm3 (3.60-5.2); RDW 16.9 % (11.6-15.6); WHITE BLOOD COUNT 9.5 K/mm3 (4.0-10.0)
[2018-10-25 08:30] LABS: BLOOD UREA NITROGEN 30.8 mg/dL (7-18); CALCIUM 8.9 mg/dL (8.5-10.1); CREATININE 0.5 mg/dL (0.55-1.3); POTASSIUM 4.2 mmol/L (3.5-5.1)
--- NOTE | 2018-10-25 09:24 | DS ---
Physical Examination Vital Signs: Vital Signs Temperature 97.3 F L 10/25/18 06:00 Pulse Rate 62 10/25/18 06:00 Respiratory Rate 14 10/25/18 06:30 Blood Pressure 122/64 10/25/18 06:00 O2 Sat by Pulse Oximetry (%) 97 10/24/18 21:00 Cardiovascular: Yes: S1 Respiratory: Yes: Mechanically Ventilated Gastrointestinal: Yes: Normal Bowel Sounds, Soft Labs: CBC, BMP 10/25/18 07:10 10/25/18 07:10 Discharge Summary Reason For Visit: PNEUMONIA Current Active Problems Acute renal insufficiency (Acute) Bacteremia (Acute) Bacteremia due to Escherichia coli (Acute) Gallstones (Acute) Hyperkalemia (Acute) Hypernatremia (Acute) Hypotension (Acute) Pneumonia (Acute) Septic shock (Acute) Hospital Course: Problems (1) Acute renal insufficiency Assessment/Plan: -Improved-stabke -BUN/Cr 24.6/0.5 -Renal consult -Renal US -US shows right kidney with mild to moderate hydronephrosis and without gross evidence of stones Code(s): N28.9 - DISORDER OF KIDNEY AND URETER, UNSPECIFIED (2) Pneumonia Assessment/Plan: -ID on board -no leukocytosis -afebrile -Off Abx -Pulm on board -keep SpO2 >90% -BC and Urine Legionella neg Code(s): J18.9 - PNEUMONIA, UNSPECIFIED ORGANISM Qualifiers: Pneumonia type: due to unspecified organism Laterality: right Lung location: lower lobe of lung Qualified Code(s): J18.1 - Lobar pneumonia, unspecified organism (3) Acute on chronic respiratory failure with hypoxia and hypercapnia Assessment/Plan: -Pulm consult -mechanically ventilated -keep SpO2 >90% -pending ENT consult for trach change Code(s): J96.21 - ACUTE AND CHRONIC RESPIRATORY FAILURE WITH HYPOXIA; J96.22 - ACUTE AND CHRONIC RESPIRATORY FAILURE WITH HYPERCAPNIA (4) Anemia Assessment/Plan: -Hg 8.4 -monitor Hg daily -transfuse for Hg <8.0 Code(s): D64.9 - ANEMIA, UNSPECIFIED (5) Functional quadriplegia Assessment/Plan: -PT -fall precautions Code(s): R53.2 - FUNCTIONAL QUADRIPLEGIA (6) Hx of multiple sclerosis Assessment/Plan: -fall precaution -PT -turn q2h and offloading Code(s): Z86.69 - PERSONAL HISTORY OF DIS OF THE NERVOUS SYS AND SENSE ORGANS (7) Hypothyroid Assessment/Plan: -Levothyroxine Code(s): E03.9 - HYPOTHYROIDISM, UNSPECIFIED (8) Sepsis Assessment/Plan: -ID on board -no leukocytosis -afebrile -Off abx -Pulm on board -keep SpO2 >90% -BC and Urine Legionella neg -UA 3+ leuks, 3+ blood, 3+ protein -UC positive -Sputum culture positive Code(s): A41.9 - SEPSIS, UNSPECIFIED ORGANISM Qualifiers: Sepsis type: sepsis due to unspecified organism Qualified Code(s): A41.9 - Sepsis, unspecified organism (9) Hypotension Assessment/Plan: -resolved -monitor BP Code(s): I95.9 - HYPOTENSION, UNSPECIFIED (10) Gallstones Assessment/Plan: -US shows hepatomegaly, gallstones without wall thickening, trace of pericholecystic free fluid, dilated CBD 9mm -Surgical and GI consult noted -Actigal Code(s): K80.20 - CALCULUS OF GALLBLADDER W/O CHOLECYSTITIS W/O OBSTRUCTION (11) Altered mental status Assessment/Plan: -resolving-a&ox3 on exam -2/2 sepsis Code(s): R41.82 - ALTERED MENTAL STATUS, UNSPECIFIED (1) PU Assessment/Plan: -Await Surgical consult Dc planning pending above consults Condition: Critical - Instructions - Home Medications Comprehensive Discharge Medication List: Ambulatory Orders Clonazepam [Klonopin] 0.5 mg PO BID 10/12/18 Loratadine 10 mg PO DAILY 10/12/18 Mirtazapine 7.5 mg PO HS 10/12/18 Pregabalin [Lyrica -] 150 mg PO BID 10/12/18 Sertraline HCl [Zoloft] 100 mg PO DAILY 10/12/18 Ursodiol [Actigal -] 300 mg PO BID 10/12/18 Amino Acids/Protein Hydrolys [Prosource No Carb Liquid Pkt] 30 ml PO BID@0800, 1730 packet 10/25/18 Docusate Liquid [Colace Liquid -] 100 mg PO DAILY PRN ud 10/25/18 Nystatin Ointment [Mycostatin Ointment -] 1 applic TP BID #60 gr 10/25/18 Pregabalin [Lyrica -] 150 mg PO TID #90 capsule MDD 3 10/25/18
[2018-10-25] MEDS ORDERED: PT OWN MED DRAWER 7, Y5N ONE (09:30)
[2018-10-25] MEDS: clonazePAM 0.5 MG TABLET PO SCH ×2 (09:37→21:22)
[2018-10-25] MEDS: HEPARIN NA (PORCINE) 5,000 UNITS/ML 1ML VIAL SQ SCH ×2 (09:37→21:22)
[2018-10-25] MEDS: AMINO ACIDS/PROTEIN HYDROLYS 30 ML LIQUID.PKT PO SCH ×2 (09:37→17:09)
[2018-10-25] MEDS: SERTRALINE HCL 50 MG TABLET (FP) PO SCH (09:38)
[2018-10-25] MEDS: URSODIOL 300 MG CAPSULE PO SCH ×2 (09:38→21:22)
[2018-10-25] MEDS: LORATADINE 10 MG TABLET PO SCH (09:38)
[2018-10-25] MEDS: POLYETHYLENE GLYCOL 3350 119 GM BTL GT SCH ×2 (12:22→21:23)
[2018-10-25] MEDS: NYSTATIN 100000 UNIT/GM TOPICAL OINTMENT 15 GM TUBE TP SCH ×2 (14:55→21:31)
--- NOTE | 2018-10-25 16:21 | PN ---
Progress Note, Physician History of Present Illness: pulmonary awake,alert comfortable on trach collar,-resp distress - Current Medication List Current Medications: Active Medications Acetaminophen (Tylenol -) 650 mg PO Q6H PRN PRN Reason: FEVER Last Admin: 10/25/18 12:25 Dose: 650 mg Amino Acids (Prosource No Carb Liquid Pkt) 30 ml PO BID@0800,1730 [facility] Last Admin: 10/25/18 09:37 Dose: 30 ml Clonazepam (Klonopin -) 0.5 mg PO BID [facility] Last Admin: 10/25/18 09:37 Dose: 0.5 mg Docusate Sodium (Colace Liquid -) 100 mg PO DAILY PRN PRN Reason: CONSTIPATION Last Admin: 10/22/18 11:09 Dose: 100 mg Heparin Sodium (Porcine) (Heparin -) 5,000 unit SQ BID [facility] Last Admin: 10/25/18 09:37 Dose: 5,000 unit Loratadine (Claritin -) 10 mg PO DAILY [facility] Last Admin: 10/25/18 09:38 Dose: 10 mg Mirtazapine (Remeron -) 7.5 mg PO HS [facility] Last Admin: 10/24/18 22:42 Dose: 7.5 mg Nystatin (Mycostatin Ointment -) 1 applic TP BID [facility] Last Admin: 10/25/18 14:55 Dose: 1 applic Polyethylene Glycol (Miralax (For Daily Use) -) 17 gm GT BID [facility] Last Admin: 10/25/18 12:22 Dose: Not Given Pregabalin 100 mg/ Pregabalin (50 mg) 150 mg PO TID [facility] Last Admin: 10/25/18 14:55 Dose: 150 mg Senna (Senna Oral Solution -) 8.8 mg PO HS [facility] Last Admin: 10/24/18 22:43 Dose: Not Given Sertraline HCl (Zoloft -) 100 mg PO DAILY [facility] Last Admin: 10/25/18 09:38 Dose: 100 mg Ursodiol (Actigal -) 300 mg PO BID [facility] Last Admin: 10/25/18 09:38 Dose: 300 mg - Objective Vital Signs: Vital Signs Temperature 97.5 F L 10/25/18 14:00 Pulse Rate 78 10/25/18 14:00 Respiratory Rate 20 10/25/18 14:00 Blood Pressure 145/80 10/25/18 14:00 O2 Sat by Pulse Oximetry (%) 96 10/25/18 10:00 Constitutional: Yes: Well Nourished, Calm Eyes: Yes: WNL HENT: Yes: WNL Neck: Yes: Supple (trach) Cardiovascular: Yes: Regular Rate and Rhythm, S1, S2 Respiratory: Yes: Diminished Gastrointestinal: Yes: Normal Bowel Sounds, Soft Extremities: Yes: WNL Edema: Yes Labs: CBC, BMP 10/25/18 07:10 10/25/18 07:10 INR, PTT INR 1.13 (0.83-1.09) H 10/12/18 11:30 Problem List - Problems (1) Hypotension Code(s): I95.9 - HYPOTENSION, UNSPECIFIED (2) Pneumonia Code(s): J18.9 - PNEUMONIA, UNSPECIFIED ORGANISM Qualifiers: Pneumonia type: due to unspecified organism Laterality: right Lung location: lower lobe of lung Qualified Code(s): J18.1 - Lobar pneumonia, unspecified organism (3) Septic shock Code(s): A41.9 - SEPSIS, UNSPECIFIED ORGANISM; R65.21 - SEVERE SEPSIS WITH SEPTIC SHOCK (4) Acute on chronic respiratory failure with hypoxia and hypercapnia Code(s): J96.21 - ACUTE AND CHRONIC RESPIRATORY FAILURE WITH HYPOXIA; J96.22 - ACUTE AND CHRONIC RESPIRATORY FAILURE WITH HYPERCAPNIA (5) Anemia Code(s): D64.9 - ANEMIA, UNSPECIFIED (6) Chronic hypercapnic respiratory failure Code(s): J96.12 - CHRONIC RESPIRATORY FAILURE WITH HYPERCAPNIA (7) Edema Code(s): R60.9 - EDEMA, UNSPECIFIED (8) Functional quadriplegia Code(s): R53.2 - FUNCTIONAL QUADRIPLEGIA (9) Functional 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 (10) Hx of multiple sclerosis Code(s): Z86.69 - PERSONAL HISTORY OF DIS OF THE NERVOUS SYS AND SENSE ORGANS (11) Neurogenic bladder Code(s): N31.9 - NEUROMUSCULAR DYSFUNCTION OF BLADDER, UNSPECIFIED (12) Sepsis Code(s): A41.9 - SEPSIS, UNSPECIFIED ORGANISM Qualifiers: Sepsis type: sepsis due to unspecified organism Qualified Code(s): A41.9 - Sepsis, unspecified organism Assessment/Plan ASSESSMENT/PLAN: Resolved Septic Shock secondary to urinary tract source Pneumonia improved Acute Hypoxic Hypercapneic Respiratory Failure improved Anemia Hypothyroidism Multiple Sclerosis Trigeminal Neuralgia Gallstones Vent support ac mode at night Trach collar as tolerated VTE prophylaxis Enteral feeds ENT evaluation for trach change pending DR ELDER
[2018-10-25] MEDS: MIRTAZAPINE 15 MG TABLET (FP) PO SCH (21:22)
[2018-10-25] MEDS: SENNOSIDES 8.8 MG/5 ML BULK BOTTLE PO SCH (21:23)
[2018-10-26] MEDS ORDERED: PREGABALIN 50 MG CAPSULE ONE ×3 (05:53→20:53)
[2018-10-26] MEDS ORDERED: PREGABALIN 100 MG CAPSULE ONE ×3 (05:53→20:54)
[2018-10-26] MEDS: ACETAMINOPHEN 325 MG TABLET (FP) PO PRN ×3 (06:06→21:26)
[2018-10-26] MEDS: PREGABALIN 100 MG, PREGABALIN 50 MG PO SCH ×3 (06:06→21:24)
[2018-10-26] MEDS: URSODIOL 300 MG CAPSULE PO SCH ×2 (12:02→21:24)
[2018-10-26] MEDS: LORATADINE 10 MG TABLET PO SCH (12:02)
[2018-10-26] MEDS: clonazePAM 0.5 MG TABLET PO SCH ×3 (12:02→21:26)
[2018-10-26] MEDS: HEPARIN NA (PORCINE) 5,000 UNITS/ML 1ML VIAL SQ SCH ×2 (12:02→21:25)
[2018-10-26] MEDS: SERTRALINE HCL 50 MG TABLET (FP) PO SCH (12:02)
[2018-10-26] MEDS: AMINO ACIDS/PROTEIN HYDROLYS 30 ML LIQUID.PKT PO SCH ×2 (12:02→19:02)
[2018-10-26] MEDS: NYSTATIN 100000 UNIT/GM TOPICAL OINTMENT 15 GM TUBE TP SCH ×2 (12:03→21:28)
[2018-10-26] MEDS: POLYETHYLENE GLYCOL 3350 119 GM BTL GT SCH ×2 (12:03→21:28)
--- NOTE | 2018-10-26 12:48 | PN ---
Progress Note, Physician History of Present Illness: PULMONARY ALERT ,COMFORTABLE ON TRACH COLLAR,-RESP DISTRESS - Current Medication List Current Medications: Active Medications Acetaminophen (Tylenol -) 650 mg PO Q6H PRN PRN Reason: FEVER Last Admin: 10/26/18 06:06 Dose: 650 mg Amino Acids (Prosource No Carb Liquid Pkt) 30 ml PO BID@0800,1730 [facility] Last Admin: 10/26/18 12:02 Dose: 30 ml Clonazepam (Klonopin -) 0.5 mg PO BID [facility] Last Admin: 10/26/18 12:09 Dose: Not Given Docusate Sodium (Colace Liquid -) 100 mg PO DAILY PRN PRN Reason: CONSTIPATION Last Admin: 10/22/18 11:09 Dose: 100 mg Heparin Sodium (Porcine) (Heparin -) 5,000 unit SQ BID [facility] Last Admin: 10/26/18 12:02 Dose: 5,000 unit Loratadine (Claritin -) 10 mg PO DAILY [facility] Last Admin: 10/26/18 12:02 Dose: 10 mg Mirtazapine (Remeron -) 7.5 mg PO HS [facility] Last Admin: 10/25/18 21:22 Dose: 7.5 mg Nystatin (Mycostatin Ointment -) 1 applic TP BID [facility] Last Admin: 10/26/18 12:03 Dose: 1 applic Polyethylene Glycol (Miralax (For Daily Use) -) 17 gm GT BID [facility] Last Admin: 10/26/18 12:03 Dose: Not Given Pregabalin 100 mg/ Pregabalin (50 mg) 150 mg PO TID [facility] Last Admin: 10/26/18 06:06 Dose: 150 mg Senna (Senna Oral Solution -) 8.8 mg PO HS [facility] Last Admin: 10/25/18 21:23 Dose: Not Given Sertraline HCl (Zoloft -) 100 mg PO DAILY [facility] Last Admin: 10/26/18 12:02 Dose: 100 mg Ursodiol (Actigal -) 300 mg PO BID [facility] Last Admin: 10/26/18 12:02 Dose: 300 mg - Objective Vital Signs: Vital Signs Temperature 98.6 F 10/26/18 06:00 Pulse Rate 101 H 10/26/18 08:15 Respiratory Rate 17 10/26/18 06:00 Blood Pressure 125/58 L 10/26/18 06:00 O2 Sat by Pulse Oximetry (%) 94 L 10/26/18 08:15 Constitutional: Yes: Well Nourished, Calm Eyes: Yes: WNL HENT: Yes: WNL Neck: Yes: Supple (TRACH) Cardiovascular: Yes: Regular Rate and Rhythm, S1, S2 Respiratory: Yes: Rhonchi (FEW RHONCHI) Gastrointestinal: Yes: Normal Bowel Sounds, Soft Extremities: Yes: WNL Edema: Yes Labs: Problem List - Problems (1) Hypotension Code(s): I95.9 - HYPOTENSION, UNSPECIFIED (2) Pneumonia Code(s): J18.9 - PNEUMONIA, UNSPECIFIED ORGANISM Qualifiers: Pneumonia type: due to unspecified organism Laterality: right Lung location: lower lobe of lung Qualified Code(s): J18.1 - Lobar pneumonia, unspecified organism (3) Septic shock Code(s): A41.9 - SEPSIS, UNSPECIFIED ORGANISM; R65.21 - SEVERE SEPSIS WITH SEPTIC SHOCK (4) Acute on chronic respiratory failure with hypoxia and hypercapnia Code(s): J96.21 - ACUTE AND CHRONIC RESPIRATORY FAILURE WITH HYPOXIA; J96.22 - ACUTE AND CHRONIC RESPIRATORY FAILURE WITH HYPERCAPNIA (5) Anemia Code(s): D64.9 - ANEMIA, UNSPECIFIED (6) Chronic hypercapnic respiratory failure Code(s): J96.12 - CHRONIC RESPIRATORY FAILURE WITH HYPERCAPNIA (7) Edema Code(s): R60.9 - EDEMA, UNSPECIFIED (8) Functional quadriplegia Code(s): R53.2 - FUNCTIONAL QUADRIPLEGIA (9) Functional 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 (10) Hx of multiple sclerosis Code(s): Z86.69 - PERSONAL HISTORY OF DIS OF THE NERVOUS SYS AND SENSE ORGANS (11) Neurogenic bladder Code(s): N31.9 - NEUROMUSCULAR DYSFUNCTION OF BLADDER, UNSPECIFIED (12) Sepsis Code(s): A41.9 - SEPSIS, UNSPECIFIED ORGANISM Qualifiers: Sepsis type: sepsis due to unspecified organism Qualified Code(s): A41.9 - Sepsis, unspecified organism Assessment/Plan ASSESSMENT/PLAN: Resolved Septic Shock secondary to urinary tract source Pneumonia improved Acute Hypoxic Hypercapneic Respiratory Failure improved Anemia Hypothyroidism Multiple Sclerosis Trigeminal Neuralgia Gallstones Vent support ac mode at night Trach collar as tolerated VTE prophylaxis Enteral feeds ENT evaluation for trach change pending DR ELDER
--- NOTE | 2018-10-26 15:19 | PN ---
Progress Note, Physician Chief Complaint: Pneumonia Sepsis UTI acute on chronic respiratory failure History of Present Illness: Previous notes and events reviewed sleeping but arouseable to verbal and tactile stimuli NAD connected to [facility] vent denies complaints of chest pain - Current Medication List Current Medications: Active Medications Acetaminophen (Tylenol -) 650 mg PO Q6H PRN PRN Reason: FEVER Last Admin: 10/26/18 14:51 Dose: 650 mg Amino Acids (Prosource No Carb Liquid Pkt) 30 ml PO BID@0800,1730 [facility] Last Admin: 10/26/18 12:02 Dose: 30 ml Clonazepam (Klonopin -) 0.5 mg PO BID [facility] Last Admin: 10/26/18 12:09 Dose: Not Given Docusate Sodium (Colace Liquid -) 100 mg PO DAILY PRN PRN Reason: CONSTIPATION Last Admin: 10/22/18 11:09 Dose: 100 mg Heparin Sodium (Porcine) (Heparin -) 5,000 unit SQ BID [facility] Last Admin: 10/26/18 12:02 Dose: 5,000 unit Loratadine (Claritin -) 10 mg PO DAILY [facility] Last Admin: 10/26/18 12:02 Dose: 10 mg Mirtazapine (Remeron -) 7.5 mg PO HS [facility] Last Admin: 10/25/18 21:22 Dose: 7.5 mg Nystatin (Mycostatin Ointment -) 1 applic TP BID [facility] Last Admin: 10/26/18 12:03 Dose: 1 applic Polyethylene Glycol (Miralax (For Daily Use) -) 17 gm GT BID [facility] Last Admin: 10/26/18 12:03 Dose: Not Given Pregabalin 100 mg/ Pregabalin (50 mg) 150 mg PO TID [facility] Last Admin: 10/26/18 14:51 Dose: 150 mg Senna (Senna Oral Solution -) 8.8 mg PO HS [facility] Last Admin: 10/25/18 21:23 Dose: Not Given Sertraline HCl (Zoloft -) 100 mg PO DAILY [facility] Last Admin: 10/26/18 12:02 Dose: 100 mg Ursodiol (Actigal -) 300 mg PO BID [facility] Last Admin: 10/26/18 12:02 Dose: 300 mg - Objective Vital Signs: Vital Signs Temperature 98.6 F 10/26/18 06:00 Pulse Rate 101 H 10/26/18 08:15 Respiratory Rate 17 10/26/18 06:00 Blood Pressure 125/58 L 10/26/18 06:00 O2 Sat by Pulse Oximetry (%) 94 L 10/26/18 08:15 Constitutional: Yes: No Distress, Calm Eyes: Yes: Conjunctiva Clear HENT: Yes: Atraumatic Neck: Yes: Other (trach) Cardiovascular: Yes: Regular Rate and Rhythm Respiratory: Yes: Regular, Diminished, Mechanically Ventilated Gastrointestinal: Yes: Normal Bowel Sounds, Soft Genitourinary: Yes: Raza Present Musculoskeletal: Yes: Muscle Weakness Extremities: Yes: WNL Edema: No Neurological: Yes: Alert, Pre-Existing Deficit, Weakness Psychiatric: Yes: Alert, Oriented Labs: CBC, BMP 10/25/18 07:10 10/25/18 07:10 INR, PTT INR 1.13 (0.83-1.09) H 10/12/18 11:30 Microbiology 10/19/18 19:00 Blood - Peripheral Venous Blood Culture - Final NO GROWTH AFTER 5 DAYS INCUBATION 10/19/18 19:00 Blood - Peripheral Venous Blood Culture - Final NO GROWTH AFTER 5 DAYS INCUBATION 10/12/18 11:30 Blood - Peripheral Venous Blood Culture - Final NO GROWTH AFTER 5 DAYS INCUBATION 10/12/18 17:20 Urine - Urine - Catheterized Urine Culture - Final Kluyvera Ascorbata Klebsiella Pneumoniae 10/13/18 01:50 Sputum - Endotrachea Suction/Ventilator Gram Stain - Final 10/13/18 01:50 Sputum - Endotrachea Suction/Ventilator Sputum Culture - Final Pseudomonas Aeruginosa 10/12/18 11:30 Blood - Peripheral Venous Blood Culture - Final Escherichia Coli 10/12/18 17:20 Urine For Antigen Detection Legionella Antigen - Final 10/12/18 17:20 Urine For Antigen Detection Streptococcus pneumoniae Antigen (M - Final 10/12/18 11:30 Urine - Urine - Catheterized Urine Culture - Final Contaminated: Please Repeat Problem List - Problems (1) Acute renal insufficiency Assessment/Plan: -BUN/Cr 30.8/0.5 -Renal consult -Renal US -US shows right kidney with mild to moderate hydronephrosis and without gross evidence of stones Code(s): N28.9 - DISORDER OF KIDNEY AND URETER, UNSPECIFIED (2) Pneumonia Assessment/Plan: -ID on board -no leukocytosis -afebrile -off antibiotics -CXR shows RLL zone airspace opacities, atelectasis changes without blunting of the right costophrenic angles -Pulm on board -keep SpO2 >90% -BC and Urine Legionella neg Code(s): J18.9 - PNEUMONIA, UNSPECIFIED ORGANISM Qualifiers: Pneumonia type: due to unspecified organism Laterality: right Lung location: lower lobe of lung Qualified Code(s): J18.1 - Lobar pneumonia, unspecified organism (3) Acute on chronic respiratory failure with hypoxia and hypercapnia Assessment/Plan: -Pulm consult -mechanically ventilated -keep SpO2 >90% -CXR shows RLL zone airspace opacities, atelectasis changes without blunting of the right costophrenic angles -consult placed for Dr Tompkins for trach change Code(s): J96.21 - ACUTE AND CHRONIC RESPIRATORY FAILURE WITH HYPOXIA; J96.22 - ACUTE AND CHRONIC RESPIRATORY FAILURE WITH HYPERCAPNIA (4) Anemia Assessment/Plan: -Hg 8.1 -monitor Hg daily -transfuse for Hg <8.0 Code(s): D64.9 - ANEMIA, UNSPECIFIED (5) Functional quadriplegia Assessment/Plan: -PT -fall precautions Code(s): R53.2 - FUNCTIONAL QUADRIPLEGIA (6) Hx of multiple sclerosis Assessment/Plan: -fall precaution -PT -turn q2h and offloading Code(s): Z86.69 - PERSONAL HISTORY OF DIS OF THE NERVOUS SYS AND SENSE ORGANS (7) Hypothyroid Assessment/Plan: -Levothyroxine Code(s): E03.9 - HYPOTHYROIDISM, UNSPECIFIED (8) Sepsis Assessment/Plan: -ID on board -no leukocytosis -afebrile -off antibiotics -CXR shows RLL zone airspace opacities, atelectasis changes without blunting of the right costophrenic angles -Pulm on board -keep SpO2 >90% -BC and Urine Legionella neg -UA 3+ leuks, 3+ blood, 3+ protein -UC positive -Sputum culture positive Code(s): A41.9 - SEPSIS, UNSPECIFIED ORGANISM Qualifiers: Sepsis type: sepsis due to unspecified organism Qualified Code(s): A41.9 - Sepsis, unspecified organism (9) Hypotension Assessment/Plan: -resolved -monitor BP Code(s): I95.9 - HYPOTENSION, UNSPECIFIED (10) Gallstones Assessment/Plan: -US shows hepatomegaly, gallstones without wall thickening, trace of pericholecystic free fluid, dilated CBD 9mm -Surgical and GI consult -Actigal Code(s): K80.20 - CALCULUS OF GALLBLADDER W/O CHOLECYSTITIS W/O OBSTRUCTION (11) Altered mental status Assessment/Plan: -resolving-a&ox3 on exam -/ sepsis Code(s): R41.82 - ALTERED MENTAL STATUS, UNSPECIFIED Assessment/Plan see problem list dvt ppx d/c pending trach change
--- NOTE | 2018-10-26 18:18 | PN ---
Progress Note (short form) - Note Progress Note: NEUROLOGY PROGRESS: Events reviewed and discussed with staff. Mother at bedside. Pt notes sig improvement in facial pains with lyrica 150 mg Q8H. Reports resolution of "warm" sensation in back of head after Iron transfusion. Admits she occasionally has used her ventilator during AM hours while at home. Able to make her needs known to family by making "clicking noise" with her tongue. However, when found with low blood pressure and SOB, attributes this to "laying on my side" to avoid worsening of her sacral decubiti and couldn't make sound. NEURO: Awake, alert, responsive. Taking small sips H20 and bites of ice cream provided by mother without difficulty. Tetraplegic. Areflexic. Decreased pinch in all fours Impression: Advanced MS with chronic hypoxemia, dysphagia Trigeminal Neuralgia Suggest: Continue Lyrica 150 mg Q8H Patient may require ongoing, routine Iron transfusions for symptomatic relief Consider home equipment to alert family if hypoxic and no one at bedside However, it is likely [place] will require more frequent ventilatory support at home Pending D/C to home Thank you very much, Rom Conroy MD
[2018-10-26] MEDS: MIRTAZAPINE 15 MG TABLET (FP) PO SCH (21:26)
[2018-10-26] MEDS: SENNOSIDES 8.8 MG/5 ML BULK BOTTLE PO SCH (21:27)
[2018-10-27] MEDS ORDERED: PREGABALIN 100 MG CAPSULE ONE ×3 (05:03→22:10)
[2018-10-27] MEDS ORDERED: PREGABALIN 50 MG CAPSULE ONE ×3 (05:03→22:09)
[2018-10-27] MEDS: PREGABALIN 100 MG, PREGABALIN 50 MG PO SCH ×3 (05:12→22:18)
[2018-10-27 09:53] LABS: HEMATOCRIT 21.9 % (32.4-45.2); HEMOGLOBIN 7.1 GM/dL (10.7-15.3); MCH 31.6 pg (25.7-33.7); MCHC 32.5 g/dl (32.0-36.0); MEAN CELL VOLUME 97.2 fl (80-96); MEAN PLT VOLUME 9.3 fl (7.5-11.1); PLATELET COUNT 227 K/MM3 (134-434); RBC 2.25 M/mm3 (3.60-5.2); RDW 16.5 % (11.6-15.6); WHITE BLOOD COUNT 12.1 K/mm3 (4.0-10.0)
[2018-10-27 10:20] LABS: ALBUMIN 1.7 g/dl (3.4-5.0); BILIRUBIN,TOTAL 0.2 mg/dL (0.2-1); BLOOD UREA NITROGEN 32.8 mg/dL (7-18); CALCIUM 9.1 mg/dL (8.5-10.1); CREATININE 0.7 mg/dL (0.55-1.3); POTASSIUM 3.6 mmol/L (3.5-5.1); TOT PROT 7.2 g/dl (6.4-8.2)
[2018-10-27] MEDS: HEPARIN NA (PORCINE) 5,000 UNITS/ML 1ML VIAL SQ SCH ×2 (10:32→22:18)
[2018-10-27] MEDS: LORATADINE 10 MG TABLET PO SCH (10:32)
[2018-10-27] MEDS: URSODIOL 300 MG CAPSULE PO SCH ×2 (10:32→22:19)
[2018-10-27] MEDS: SERTRALINE HCL 50 MG TABLET (FP) PO SCH (10:32)
[2018-10-27] MEDS: AMINO ACIDS/PROTEIN HYDROLYS 30 ML LIQUID.PKT PO SCH ×2 (10:33→19:14)
[2018-10-27] MEDS: POLYETHYLENE GLYCOL 3350 119 GM BTL GT SCH (10:33)
[2018-10-27] MEDS: clonazePAM 0.5 MG TABLET PO SCH ×2 (10:33→22:40)
[2018-10-27] MEDS: NYSTATIN 100000 UNIT/GM TOPICAL OINTMENT 15 GM TUBE TP SCH ×2 (10:34→22:19)
[2018-10-27] MEDS ORDERED: LIDOCAINE HCL 4% TOPICAL SOLN (50 ML/BOTTLE) TP ONE (10:36)
--- NOTE | 2018-10-27 10:48 | PN ---
Progress Note, Physician Chief Complaint: Pneumonia Sepsis UTI acute on chronic respiratory failure History of Present Illness: Previous notes and events reviewed sleeping but arouseable to verbal and tactile stimuli NAD connected to [facility] vent denies complaints of chest pain Hg 7.[address] Tompkins ENT - Current Medication List Current Medications: Active Medications Acetaminophen (Tylenol -) 650 mg PO Q6H PRN PRN Reason: FEVER Last Admin: 10/26/18 21:26 Dose: 650 mg Amino Acids (Prosource No Carb Liquid Pkt) 30 ml PO BID@0800,1730 [facility] Last Admin: 10/27/18 10:33 Dose: 30 ml Clonazepam (Klonopin -) 0.5 mg PO BID [facility] Last Admin: 10/27/18 10:33 Dose: 0.5 mg Docusate Sodium (Colace Liquid -) 100 mg PO DAILY PRN PRN Reason: CONSTIPATION Last Admin: 10/22/18 11:09 Dose: 100 mg Heparin Sodium (Porcine) (Heparin -) 5,000 unit SQ BID [facility] [place] Last Admin: 10/27/18 10:32 Dose: 5,000 unit Loratadine (Claritin -) 10 mg PO DAILY [facility] [place] Last Admin: 10/27/18 10:32 Dose: 10 mg Mirtazapine (Remeron -) 7.5 mg PO HS [facility] [place] Last Admin: 10/26/18 21:26 Dose: 7.5 mg Nystatin (Mycostatin Ointment -) 1 applic TP BID [facility] [place] Last Admin: 10/27/18 10:34 Dose: 1 applic Polyethylene Glycol (Miralax (For Daily Use) -) 17 gm GT BID [facility] Last Admin: 10/27/18 10:33 Dose: Not Given Pregabalin 100 mg/ Pregabalin (50 mg) 150 mg PO TID [facility] [place] Last Admin: 10/27/18 05:12 Dose: 150 mg Senna (Senna Oral Solution -) 8.8 mg PO HS [facility] [place] Last Admin: 10/26/18 21:27 Dose: 8.8 mg Sertraline HCl (Zoloft -) 100 mg PO DAILY [facility] [place] Last Admin: 10/27/18 10:32 Dose: 100 mg Ursodiol (Actigal -) 300 mg PO BID [facility] [place] Last Admin: 10/27/18 10:32 Dose: 300 mg - Objective Vital Signs: Vital Signs Temperature 99.3 F 10/27/18 06:00 Pulse Rate 90 10/27/18 06:00 Respiratory Rate 14 10/27/18 09:49 Blood Pressure 102/47 L 10/27/18 06:00 O2 Sat by Pulse Oximetry (%) 98 10/26/18 21:00 Constitutional: Yes: No Distress, Calm Eyes: Yes: Conjunctiva Clear HENT: Yes: Atraumatic Neck: Yes: Other (trach) Cardiovascular: Yes: Tachycardia Respiratory: Yes: Regular, Diminished, Mechanically Ventilated Gastrointestinal: Yes: Normal Bowel Sounds, Soft Genitourinary: Yes: Incontinence Musculoskeletal: Yes: Muscle Weakness Extremities: Yes: WNL Edema: No Wound/Incision: Yes: Dressing Dry and Intact Neurological: Yes: Alert, Oriented Psychiatric: Yes: Alert, Oriented Labs: CBC, BMP 10/27/18 08:32 10/27/18 08:32 INR, PTT INR 1.13 (0.83-1.09) H 10/12/18 11:30 Problem List - Problems (1) Acute renal insufficiency Assessment/Plan: -BUN/Cr 32.8/0.7 -Renal consult -Renal US -US shows right kidney with mild to moderate hydronephrosis and without gross evidence of stones Code(s): N28.9 - DISORDER OF KIDNEY AND URETER, UNSPECIFIED (2) Pneumonia Assessment/Plan: -ID on board -no leukocytosis -afebrile -off antibiotics -CXR shows RLL zone airspace opacities, atelectasis changes without blunting of the right costophrenic angles -Pulm on board -keep SpO2 >90% -BC and Urine Legionella neg Code(s): J18.9 - PNEUMONIA, UNSPECIFIED ORGANISM Qualifiers: Pneumonia type: due to unspecified organism Laterality: right Lung location: lower lobe of lung Qualified Code(s): J18.1 - Lobar pneumonia, unspecified organism (3) Acute on chronic respiratory failure with hypoxia and hypercapnia Assessment/Plan: -Pulm on board -mechanically ventilated -keep SpO2 >90% -CXR shows RLL zone airspace opacities, atelectasis changes without blunting of the right costophrenic angles -consult placed for Dr Tompkins for trach change Code(s): J96.21 - ACUTE AND CHRONIC RESPIRATORY FAILURE WITH HYPOXIA; J96.22 - ACUTE AND CHRONIC RESPIRATORY FAILURE WITH HYPERCAPNIA (4) Anemia Assessment/Plan: -Hg 7.1 -type and screen ordered -1U PRBC ordered for transfusion -monitor Hg daily -transfuse for Hg <8.0 Code(s): D64.9 - ANEMIA, UNSPECIFIED (5) Functional quadriplegia Assessment/Plan: -PT -fall precautions Code(s): R53.2 - FUNCTIONAL QUADRIPLEGIA (6) Hx of multiple sclerosis Assessment/Plan: -fall precaution -PT -turn q2h and offloading Code(s): Z86.69 - PERSONAL HISTORY OF DIS OF THE NERVOUS SYS AND SENSE ORGANS (7) Hypothyroid Assessment/Plan: -Levothyroxine Code(s): E03.9 - HYPOTHYROIDISM, UNSPECIFIED (8) Sepsis Assessment/Plan: -ID on board -no leukocytosis -afebrile -off antibiotics -CXR shows RLL zone airspace opacities, atelectasis changes without blunting of the right costophrenic angles -Pulm on board -keep SpO2 >90% -BC and Urine Legionella neg -UA 3+ leuks, 3+ blood, 3+ protein -UC positive -Sputum culture positive Code(s): A41.9 - SEPSIS, UNSPECIFIED ORGANISM Qualifiers: Sepsis type: sepsis due to unspecified organism Qualified Code(s): A41.9 - Sepsis, unspecified organism (9) Hypotension Assessment/Plan: -resolved -monitor BP Code(s): I95.9 - HYPOTENSION, UNSPECIFIED (10) Gallstones Assessment/Plan: -US shows hepatomegaly, gallstones without wall thickening, trace of pericholecystic free fluid, dilated CBD 9mm -Surgical and GI consult -Actigal Code(s): K80.20 - CALCULUS OF GALLBLADDER W/O CHOLECYSTITIS W/O OBSTRUCTION (11) Altered mental status Assessment/Plan: -resolving-a&ox3 on exam -2/2 sepsis Code(s): R41.82 - ALTERED MENTAL STATUS, UNSPECIFIED Assessment/Plan see problem list dvt ppx
[2018-10-27] MEDS ORDERED: PT OWN MED DRAWER 7, Y5N ONE ×2 (11:52→15:17)
--- NOTE | 2018-10-27 12:47 | PN ---
Progress Note (short form) - Note Progress Note: FU Multiple Grade IV decubitii General condition deteriorating, on Respirator, Anaemic Selected Entries 10/27/18 10/27/18 09:59 10:00 Pulse Rate 112 H Respiratory 24 H Rate Blood Pressure 90/50 L Blood Pressure Sitting Position Oxygen Delivery Trach Collar Method Fraction of 40 Inspired Oxygen (FIO2) Oxygen Flow 12 Rate All wounds evaluated : 1. Right Hip wound/Ischial decubtitus : Worse deep tissue injury, eschar covering Labia Majora, Ischial mackenzie exposed , black eschar covering bone, surround skin showing significant Pressur injury , mild smell, Undermining preset, Bone exposed and palpable . Increase in defect size Measured : Including Labia Majora 4x8x3.4cm 2, Left Ischial/Hip decubitus Grade IV with UM,mild odor, Bone exposed and palpable. UM discharge present Measured 1x25x1.4cm 3. Coccyx/sacral decubitus Grade IV : Bone exposed, with UM, mild odor , edges shelving, mild discharge Measured : 1.5x1.5x1.5cm with UM 11-3oclock All wounds cleaned with NSS Right wound : Apply Collagenase with Mupurocin BID Avoid sitting On R Hip longer than 8 min at a given times or less Left Hip and coccyx continue Alginate every other day
[2018-10-27] MEDS: ACETAMINOPHEN 325 MG TABLET (FP) PO PRN (14:17)
[2018-10-27 14:56] LABS: ARTERIAL BLD GAS O2 SATURATION 96.8 % (95-98); ARTERIAL BLOOD GAS PCO2 43.3 mmHg (35-45); ARTERIAL BLOOD GAS PO2 79.1 mmHg (80-100); ARTERIAL BLOOD GAS pH 7.49 (7.35-7.45)
[2018-10-27 15:02] LABS: ALLENS TEST POSITIVE
[2018-10-27] MEDS: COLLAGENASE CLOSTRIDIUM HIST. 30 GRAMS TUBE TP SCH (15:30)
--- NOTE | 2018-10-27 17:30 | PN ---
Progress Note (short form) - Note Progress Note: PULMONARY s/p trach change by surgery. On/off vent. Vital Signs Period Temp Pulse Resp BP Sys/Morillo Pulse Ox Last 24 Hr 97.8 F-99.3 F 83-112 14-24 90-154/47-71 93-98 Gen: NAD on trach collar Heart: RRR Lung: scattered rhonchi Abd: soft, nontender Ext: trace edema CBC, BMP 10/27/18 08:32 10/27/18 08:32 Active Medications Acetaminophen (Tylenol -) 650 mg PO Q6H PRN PRN Reason: FEVER Last Admin: 10/27/18 14:17 Dose: 650 mg Amino Acids (Prosource No Carb Liquid Pkt) 30 ml PO BID@0800,1730 [facility] Last Admin: 10/27/18 10:33 Dose: 30 ml Clonazepam (Klonopin -) 0.5 mg PO BID [facility] Last Admin: 10/27/18 10:33 Dose: 0.5 mg Collagenase (Santyl -) 1 applic TP DAILY [facility]; Protocol Stop: 10/30/18 12:34 Docusate Sodium (Colace Liquid -) 100 mg PO DAILY PRN PRN Reason: CONSTIPATION Last Admin: 10/22/18 11:09 Dose: 100 mg Heparin Sodium (Porcine) (Heparin -) 5,000 unit SQ BID [facility] Last Admin: 10/27/18 10:32 Dose: 5,000 unit Loratadine (Claritin -) 10 mg PO DAILY [facility] Last Admin: 10/27/18 10:32 Dose: 10 mg Mirtazapine (Remeron -) 7.5 mg PO HS [facility] Last Admin: 10/26/18 21:26 Dose: 7.5 mg Mupirocin (Bactroban 2% Ointment -) 1 applic TP BID [facility] Nystatin (Mycostatin Ointment -) 1 applic TP BID [facility] Last Admin: 10/27/18 10:34 Dose: 1 applic Polyethylene Glycol (Miralax (For Daily Use) -) 17 gm GT BID [facility] Last Admin: 10/27/18 10:33 Dose: Not Given Pregabalin 100 mg/ Pregabalin (50 mg) 150 mg PO TID [facility] Last Admin: 10/27/18 14:17 Dose: 150 mg Senna (Senna Oral Solution -) 8.8 mg PO HS [facility] Last Admin: 10/26/18 21:27 Dose: 8.8 mg Sertraline HCl (Zoloft -) 100 mg PO DAILY [facility] Last Admin: 10/27/18 10:32 Dose: 100 mg Ursodiol (Actigal -) 300 mg PO BID [facility] Last Admin: 10/27/18 10:32 Dose: 300 mg A/P UTI Pneumonia s/p Septic shock Acute on Chronic Hypoxic and Hypercapneic Respiratory Failure improving Anemia Hypothyroidism Multiple Sclerosis Trigeminal Neuralgia Gallstones - completed antibiotics - trach collar, PMV as tolerated - mechanical ventilation at night - enteral feeds - DVT/GI prophylaxis
[2018-10-27] MEDS ORDERED: ACETAMINOPHEN 325 MG TABLET (FP) PO ONE (18:18)
--- NOTE | 2018-10-27 20:10 | HOSP ---
Subjective - Review of Symptoms Events since last encounter: Hospital Encounter Notified by the RN, that the patient's BP is 81/38, P 65. Manual BP 80/40 after 90 min during blood transfusion Arrived to bedside, patient is asleep but arousable trach-vent dependent non- verbal, but mouths words. PE performed see EMR Assessment: This is a 53 y/o woman Trach- vent dependent. Admitted for Sepsis. Plan: d/c blood transfusion Transfusion Reaction Protocol initiated IV fluid Bolus Physical Examination Vital Signs: Vital Signs Temperature 98.1 F 10/27/18 18:00 Pulse Rate 98 H 10/27/18 20:03 Respiratory Rate 20 10/27/18 20:03 Blood Pressure 80/40 L 10/27/18 20:03 O2 Sat by Pulse Oximetry (%) 93 L 10/27/18 10:00 Constitutional: Yes: Other (asleep but arousable) Eyes: Yes: WNL, Conjunctiva Clear, EOM Intact, PERRL HENT: Yes: WNL, Atraumatic, Normocephalic Neck: Yes: Supple, Other (Trach Vent dependent) Cardiovascular: Yes: Regular Rate and Rhythm, S1, S2 Respiratory: Yes: Diminished, Other (Trach- Vent dependent) Gastrointestinal: Yes: Normal Bowel Sounds, Soft Renal/: Yes: Raza Present Breast(s): Yes: WNL Musculoskeletal: Yes: WNL Extremities: Yes: WNL Edema: Yes Peripheral Pulses WNL: Yes Integumentary: Yes: Pressure Ulcer Wound/Incision: Yes: Dressing Dry and Intact Neurological: Yes: Alert, Oriented Psychiatric: Yes: Alert, Oriented Labs: CBC, BMP 10/27/18 08:32 10/27/18 08:32 Laboratory Tests 10/12/18 10/12/18 10/12/18 11:30 11:30 11:30 WBC 20.1 H RBC 2.87 L Hgb 8.9 L Hct 29.2 L MCV 101.6 H MCH 31.0 MCHC 30.5 L RDW 17.3 H Plt Count 87 L D MPV 11.8 H D Absolute Neuts (auto) 18.7 H Neutrophils % 92.6 H D Neutrophils % (Manual) 92.9 H Band Neutrophils % 0.0 Lymphocytes % 1.8 L D Lymphocytes % (Manual) 7.1 L D Monocytes % 5.3 Monocytes % (Manual) 0 L D Eosinophils % 0.1 D Eosinophils % (Manual) 0.0 D Basophils % 0.2 Basophils % (Manual) 0.0 Myelocytes % (Man) 0 Promyelocytes % (Man) 0 Blast Cells % (Manual) 0 Nucleated RBC % 0 Metamyelocytes 0 D Hypochromia 0 Platelet Estimate Decreased Platelet Comment Present Polychromasia 0 Poikilocytosis 0 Anisocytosis 1+ Microcytosis 0 Macrocytosis 1+ Target Cells PT with INR INR PTT (Actin FS) 43.2 H Anticoagulation Therapy Puncture Site ABG pH ABG pCO2 at Pt Temp ABG pO2 at Pt Temp ABG HCO3 ABG O2 Sat (Measured) ABG O2 Content ABG Base Excess Howard Test VBG pH POC VBG pCO2 POC VBG pO2 VBG HCO3 VBG O2 Sat (Tim) VBG Base Excess O2 Delivery Device Oxygen Flow Rate Vent Mode Vent Rate Mechanical Rate PEEP Pressure Support Vent Sodium Potassium Chloride Carbon Dioxide Anion Gap BUN Creatinine Est GFR (CKD-EPI)AfAm Est GFR (CKD-EPI)NonAf POC Glucometer Random Glucose Lactic Acid 1.1 Calcium Phosphorus Magnesium Iron TIBC Iron Saturation Unsaturated IBC Total Bilirubin AST ALT Alkaline Phosphatase Troponin I Total Protein Albumin TSH Free T4 Urine Color Urine Appearance Urine pH Ur Specific Trilla Urine Protein Urine Glucose (UA) Urine Ketones Urine Blood Urine Nitrite Urine Bilirubin Urine Urobilinogen Ur Leukocyte Esterase Urine WBC (Auto) Urine RBC (Auto) Urine Casts (Auto) U Pathogenic Cast Auto U Epithel Cells (Auto) U Sm Round Cell (Auto) Urine Crystals (Auto) Urine Bacteria (Auto) Urine Yeast (Auto) Random Vancomycin Blood Type Antibody Screen Crossmatch 10/12/18 10/12/18 10/12/18 11:30 11:30 11:30 WBC RBC Hgb Hct MCV MCH MCHC RDW Plt Count MPV Absolute Neuts (auto) Neutrophils % Neutrophils % (Manual) Band Neutrophils % Lymphocytes % Lymphocytes % (Manual) Monocytes % Monocytes % (Manual) Eosinophils % Eosinophils % (Manual) Basophils % Basophils % (Manual) Myelocytes % (Man) Promyelocytes % (Man) Blast Cells % (Manual) Nucleated RBC % Metamyelocytes Hypochromia Platelet Estimate Platelet Comment Polychromasia Poikilocytosis Anisocytosis Microcytosis Macrocytosis Target Cells PT with INR 13.40 H INR 1.13 H PTT (Actin FS) Anticoagulation Therapy Puncture Site ABG pH ABG pCO2 at Pt Temp ABG pO2 at Pt Temp ABG HCO3 ABG O2 Sat (Measured) ABG O2 Content ABG Base Excess Howard Test VBG pH POC VBG pCO2 POC VBG pO2 VBG HCO3 VBG O2 Sat (Tim) VBG Base Excess O2 Delivery Device Oxygen Flow Rate Vent Mode Vent Rate Mechanical Rate PEEP Pressure Support Vent Sodium 138 Potassium 6.3 H* Chloride 105 Carbon Dioxide 27 Anion Gap 5 L BUN 86.4 H Creatinine 1.4 H Est GFR (CKD-EPI)AfAm 49.25 Est GFR (CKD-EPI)NonAf 42.49 POC Glucometer Random Glucose 80 Lactic Acid Calcium 8.7 Phosphorus Magnesium Iron TIBC Iron Saturation Unsaturated IBC Total Bilirubin 0.2 AST 37 ALT 35 Alkaline Phosphatase 234 H Troponin I < 0.02 Total Protein 6.4 Albumin 2.0 L TSH Free T4 Urine Color Yellow Urine Appearance Turbid Urine pH >= 9.0 H D Ur Specific Trilla 1.018 Urine Protein 4+ H Urine Glucose (UA) 1+ H Urine Ketones Negative Urine Blood Negative Urine Nitrite Negative Urine Bilirubin Negative Urine Urobilinogen 1.0 Ur Leukocyte Esterase 3+ H Urine WBC (Auto) 649 Urine RBC (Auto) 3 Urine Casts (Auto) 258 U Pathogenic Cast Auto None seen U Epithel Cells (Auto) >36 U Sm Round Cell (Auto) None seen Urine Crystals (Auto) Triple phosphate=2+ Urine Bacteria (Auto) 3894.2 Urine Yeast (Auto) None seen Random Vancomycin Blood Type Antibody Screen Crossmatch 10/12/18 10/12/18 10/12/18 11:30 17:20 19:45 WBC RBC Hgb Hct MCV MCH MCHC RDW Plt Count MPV Absolute Neuts (auto) Neutrophils % Neutrophils % (Manual) Band Neutrophils % Lymphocytes % Lymphocytes % (Manual) Monocytes % Monocytes % (Manual) Eosinophils % Eosinophils % (Manual) Basophils % Basophils % (Manual) Myelocytes % (Man) Promyelocytes % (Man) Blast Cells % (Manual) Nucleated RBC % Metamyelocytes Hypochromia Platelet Estimate Platelet Comment Polychromasia Poikilocytosis Anisocytosis Microcytosis Macrocytosis Target Cells PT with INR INR PTT (Actin FS) Anticoagulation Therapy Puncture Site ABG pH ABG pCO2 at Pt Temp ABG pO2 at Pt Temp ABG HCO3 ABG O2 Sat (Measured) ABG O2 Content ABG Base Excess Howard Test VBG pH 7.19 L* POC VBG pCO2 74.8 H* POC VBG pO2 38.2 VBG HCO3 27.6 VBG O2 Sat (Tim) 59.3 L VBG Base Excess -1.1 O2 Delivery Device Oxygen Flow Rate Vent Mode Vent Rate Mechanical Rate PEEP Pressure Support Vent Sodium 135 L Potassium 5.9 H Chloride 104 Carbon Dioxide 27 Anion Gap 4 L BUN 80.2 H Creatinine 1.5 H Est GFR (CKD-EPI)AfAm 45.30 Est GFR (CKD-EPI)NonAf 39.09 POC Glucometer Random Glucose 126 H Lactic Acid Calcium 8.2 L Phosphorus Magnesium Iron TIBC Iron Saturation Unsaturated IBC Total Bilirubin 0.3 AST 38 H ALT 37 Alkaline Phosphatase 240 H Troponin I Total Protein 6.6 Albumin 2.0 L TSH Free T4 Urine Color Red Urine Appearance Turbid Urine pH 8.5 H Ur Specific Trilla 1.013 Urine Protein 3+ H Urine Glucose (UA) Negative Urine Ketones Negative Urine Blood 3+ H Urine Nitrite Negative Urine Bilirubin Negative Urine Urobilinogen 0.2 Ur Leukocyte Esterase 3+ H Urine WBC (Auto) 1001 Urine RBC (Auto) 598 Urine Casts (Auto) 102 U Pathogenic Cast Auto None seen U Epithel Cells (Auto) 14.7 U Sm Round Cell (Auto) None seen Urine Crystals (Auto) Urine Bacteria (Auto) 657.2 Urine Yeast (Auto) Random Vancomycin Blood Type Antibody Screen Crossmatch 10/13/18 10/13/18 10/13/18 00:38 05:35 05:35 WBC 31.8 H* RBC 2.81 L Hgb 9.0 L Hct 27.4 L MCV 97.5 H MCH 31.8 MCHC 32.7 RDW 17.4 H Plt Count 107 L D MPV 11.3 H Absolute Neuts (auto) 30.0 H Neutrophils % 94.4 H Neutrophils % (Manual) 81.8 Band Neutrophils % 14.2 Lymphocytes % 1.2 L D Lymphocytes % (Manual) 3.0 L D Monocytes % 4.1 Monocytes % (Manual) 0 L Eosinophils % 0.2 D Eosinophils % (Manual) 1.0 D Basophils % 0.1 Basophils % (Manual) 0.0 Myelocytes % (Man) 0 Promyelocytes % (Man) 0 Blast Cells % (Manual) 0 Nucleated RBC % 0 Metamyelocytes 0 Hypochromia 0 Platelet Estimate Decreased Platelet Comment Polychromasia 0 Poikilocytosis 0 Anisocytosis 1+ Microcytosis 0 Macrocytosis 1+ Target Cells PT with INR INR PTT (Actin FS) Anticoagulation Therapy Puncture Site ABG pH ABG pCO2 at Pt Temp ABG pO2 at Pt Temp ABG HCO3 ABG O2 Sat (Measured) ABG O2 Content ABG Base Excess Howard Test VBG pH POC VBG pCO2 POC VBG pO2 VBG HCO3 VBG O2 Sat (Tim) VBG Base Excess O2 Delivery Device Oxygen Flow Rate Vent Mode Vent Rate Mechanical Rate PEEP Pressure Support Vent Sodium Potassium Chloride Carbon Dioxide Anion Gap BUN Creatinine Est GFR (CKD-EPI)AfAm Est GFR (CKD-EPI)NonAf POC Glucometer 138 Random Glucose Lactic Acid Calcium Phosphorus Magnesium Iron TIBC Iron Saturation Unsaturated IBC Total Bilirubin AST ALT Alkaline Phosphatase Troponin I Total Protein Albumin TSH Free T4 Urine Color Urine Appearance Urine pH Ur Specific Trilla Urine Protein Urine Glucose (UA) Urine Ketones Urine Blood Urine Nitrite Urine Bilirubin Urine Urobilinogen Ur Leukocyte Esterase Urine WBC (Auto) Urine RBC (Auto) Urine Casts (Auto) U Pathogenic Cast Auto U Epithel Cells (Auto) U Sm Round Cell (Auto) Urine Crystals (Auto) Urine Bacteria (Auto) Urine Yeast (Auto) Random Vancomycin 20.4 Blood Type Antibody Screen Crossmatch 10/13/18 10/13/18 10/13/18 05:35 05:35 05:53 WBC RBC Hgb Hct MCV MCH MCHC RDW Plt Count MPV Absolute Neuts (auto) Neutrophils % Neutrophils % (Manual) Band Neutrophils % Lymphocytes % Lymphocytes % (Manual) Monocytes % Monocytes % (Manual) Eosinophils % Eosinophils % (Manual) Basophils % Basophils % (Manual) Myelocytes % (Man) Promyelocytes % (Man) Blast Cells % (Manual) Nucleated RBC % Metamyelocytes Hypochromia Platelet Estimate Platelet Comment Polychromasia Poikilocytosis Anisocytosis Microcytosis Macrocytosis Target Cells PT with INR INR PTT (Actin FS) Anticoagulation Therapy Puncture Site ABG pH ABG pCO2 at Pt Temp ABG pO2 at Pt Temp ABG HCO3 ABG O2 Sat (Measured) ABG O2 Content ABG Base Excess Howard Test VBG pH POC VBG pCO2 POC VBG pO2 VBG HCO3 VBG O2 Sat (Tim) VBG Base Excess O2 Delivery Device Oxygen Flow Rate Vent Mode Vent Rate Mechanical Rate PEEP Pressure Support Vent Sodium 135 L Potassium 5.1 Chloride 104 Carbon Dioxide 26 Anion Gap 5 L BUN 73.6 H Creatinine 1.3 Est GFR (CKD-EPI)AfAm 53.86 Est GFR (CKD-EPI)NonAf 46.47 POC Glucometer 135 Random Glucose 126 H Lactic Acid Calcium 8.2 L Phosphorus 3.8 Magnesium 2.2 Iron TIBC Iron Saturation Unsaturated IBC Total Bilirubin 0.4 AST 35 ALT 35 Alkaline Phosphatase 236 H Troponin I Total Protein 6.7 Albumin 2.0 L TSH 1.18 Free T4 0.97 Urine Color Urine Appearance Urine pH Ur Specific Trilla Urine Protein Urine Glucose (UA) Urine Ketones Urine Blood Urine Nitrite Urine Bilirubin Urine Urobilinogen Ur Leukocyte Esterase Urine WBC (Auto) Urine RBC (Auto) Urine Casts (Auto) U Pathogenic Cast Auto U Epithel Cells (Auto) U Sm Round Cell (Auto) Urine Crystals (Auto) Urine Bacteria (Auto) Urine Yeast (Auto) Random Vancomycin Blood Type Antibody Screen Crossmatch 10/13/18 10/13/18 10/13/18 07:00 12:16 16:26 WBC RBC Hgb Hct MCV MCH MCHC RDW Plt Count MPV Absolute Neuts (auto) Neutrophils % Neutrophils % (Manual) Band Neutrophils % Lymphocytes % Lymphocytes % (Manual) Monocytes % Monocytes % (Manual) Eosinophils % Eosinophils % (Manual) Basophils % Basophils % (Manual) Myelocytes % (Man) Promyelocytes % (Man) Blast Cells % (Manual) Nucleated RBC % Metamyelocytes Hypochromia Platelet Estimate Platelet Comment Polychromasia Poikilocytosis Anisocytosis Microcytosis Macrocytosis Target Cells PT with INR INR PTT (Actin FS) Anticoagulation Therapy Puncture Site Right radial ABG pH 7.31 L ABG pCO2 at Pt Temp 47.4 H ABG pO2 at Pt Temp 112 H ABG HCO3 23.0 ABG O2 Sat (Measured) 98.5 H ABG O2 Content 12.8 L ABG Base Excess -2.8 L Howard Test Positive VBG pH POC VBG pCO2 POC VBG pO2 VBG HCO3 VBG O2 Sat (Tim) VBG Base Excess O2 Delivery Device Vent Oxygen Flow Rate 50% Vent Mode A/c Vent Rate 14 Mechanical Rate Mech vent PEEP 5.0 Pressure Support Vent 450 Sodium Potassium Chloride Carbon Dioxide Anion Gap BUN Creatinine Est GFR (CKD-EPI)AfAm Est GFR (CKD-EPI)NonAf POC Glucometer 103 123 Random Glucose Lactic Acid Calcium Phosphorus Magnesium Iron TIBC Iron Saturation Unsaturated IBC Total Bilirubin AST ALT Alkaline Phosphatase Troponin I Total Protein Albumin TSH Free T4 Urine Color Urine Appearance Urine pH Ur Specific Trilla Urine Protein Urine Glucose (UA) Urine Ketones Urine Blood Urine Nitrite Urine Bilirubin Urine Urobilinogen Ur Leukocyte Esterase Urine WBC (Auto) Urine RBC (Auto) Urine Casts (Auto) U Pathogenic Cast Auto U Epithel Cells (Auto) U Sm Round Cell (Auto) Urine Crystals (Auto) Urine Bacteria (Auto) Urine Yeast (Auto) Random Vancomycin Blood Type Antibody Screen Crossmatch 10/14/18 10/14/18 10/14/18 05:20 05:20 08:45 WBC 27.7 H RBC 2.55 L Hgb 8.0 L Hct 24.9 L MCV 97.6 H MCH 31.5 MCHC 32.2 RDW 17.5 H Plt Count 86 L MPV 11.3 H Absolute Neuts (auto) Neutrophils % Neutrophils % (Manual) Band Neutrophils % Lymphocytes % Lymphocytes % (Manual) Monocytes % Monocytes % (Manual) Eosinophils % Eosinophils % (Manual) Basophils % Basophils % (Manual) Myelocytes % (Man) Promyelocytes % (Man) Blast Cells % (Manual) Nucleated RBC % Metamyelocytes Hypochromia Platelet Estimate Platelet Comment Polychromasia Poikilocytosis Anisocytosis Microcytosis Macrocytosis Target Cells PT with INR INR PTT (Actin FS) Anticoagulation Therapy Puncture Site ABG pH ABG pCO2 at Pt Temp ABG pO2 at Pt Temp ABG HCO3 ABG O2 Sat (Measured) ABG O2 Content ABG Base Excess Howard Test VBG pH POC VBG pCO2 POC VBG pO2 VBG HCO3 VBG O2 Sat (Tim) VBG Base Excess O2 Delivery Device Oxygen Flow Rate Vent Mode Vent Rate Mechanical Rate PEEP Pressure Support Vent Sodium 139 138 Potassium 4.6 4.6 Chloride 106 106 Carbon Dioxide 26 28 Anion Gap 6 L 3 L BUN 46.8 H 44.6 H Creatinine 0.9 0.8 Est GFR (CKD-EPI)AfAm 84.01 96.87 Est GFR (CKD-EPI)NonAf 72.49 83.58 POC Glucometer Random Glucose 105 94 Lactic Acid Calcium 8.4 L 8.7 Phosphorus 3.8 Magnesium 1.9 Iron TIBC Iron Saturation Unsaturated IBC Total Bilirubin 0.3 0.4 AST 25 22 ALT 27 26 Alkaline Phosphatase 226 H 210 H Troponin I Total Protein 6.4 6.3 L Albumin 1.8 L 1.8 L TSH Free T4 Urine Color Urine Appearance Urine pH Ur Specific Trilla Urine Protein Urine Glucose (UA) Urine Ketones Urine Blood Urine Nitrite Urine Bilirubin Urine Urobilinogen Ur Leukocyte Esterase Urine WBC (Auto) Urine RBC (Auto) Urine Casts (Auto) U Pathogenic Cast Auto U Epithel Cells (Auto) U Sm Round Cell (Auto) Urine Crystals (Auto) Urine Bacteria (Auto) Urine Yeast (Auto) Random Vancomycin Blood Type Antibody Screen Crossmatch 10/15/18 10/15/18 10/16/18 06:30 06:30 05:20 WBC 14.2 H 8.7 RBC 2.37 L 2.25 L Hgb 7.5 L 7.3 L Hct 22.8 L 22.1 L MCV 96.2 H 98.0 H MCH 31.6 32.4 MCHC 32.9 33.0 RDW 17.3 H 17.3 H Plt Count 61 L D 64 L MPV 10.7 11.0 Absolute Neuts (auto) 13.1 H 7.7 Neutrophils % 92.3 H 88.8 H Neutrophils % (Manual) 92.9 H Band Neutrophils % 0.0 Lymphocytes % 5.2 L D 5.2 L Lymphocytes % (Manual) 4.1 L D Monocytes % 2.1 L 2.2 L Monocytes % (Manual) 2 L D Eosinophils % 0.2 3.7 D Eosinophils % (Manual) 1.0 Basophils % 0.2 0.1 Basophils % (Manual) 0.0 Myelocytes % (Man) 0 Promyelocytes % (Man) 0 Blast Cells % (Manual) 0 Nucleated RBC % 0 0 Metamyelocytes 0 Hypochromia 0 Platelet Estimate Decreased Platelet Comment Polychromasia 0 Poikilocytosis 0 Anisocytosis 1+ Microcytosis 0 Macrocytosis 1+ Target Cells 1+ PT with INR INR PTT (Actin FS) Anticoagulation Therapy Puncture Site ABG pH ABG pCO2 at Pt Temp ABG pO2 at Pt Temp ABG HCO3 ABG O2 Sat (Measured) ABG O2 Content ABG Base Excess Howard Test VBG pH POC VBG pCO2 POC VBG pO2 VBG HCO3 VBG O2 Sat (Tim) VBG Base Excess O2 Delivery Device Oxygen Flow Rate Vent Mode Vent Rate Mechanical Rate PEEP Pressure Support Vent Sodium 145 Potassium 3.6 Chloride 111 H Carbon Dioxide 28 Anion Gap 6 L BUN 35.5 H Creatinine 0.6 Est GFR (CKD-EPI)AfAm 119.77 Est GFR (CKD-EPI)NonAf 103.34 POC Glucometer Random Glucose 58 L Lactic Acid Calcium 8.5 Phosphorus Magnesium Iron TIBC Iron Saturation Unsaturated IBC Total Bilirubin 0.2 AST 19 ALT 23 Alkaline Phosphatase 184 H Troponin I Total Protein 5.9 L Albumin 1.7 L TSH Free T4 Urine Color Urine Appearance Urine pH Ur Specific Trilla Urine Protein Urine Glucose (UA) Urine Ketones Urine Blood Urine Nitrite Urine Bilirubin Urine Urobilinogen Ur Leukocyte Esterase Urine WBC (Auto) Urine RBC (Auto) Urine Casts (Auto) U Pathogenic Cast Auto U Epithel Cells (Auto) U Sm Round Cell (Auto) Urine Crystals (Auto) Urine Bacteria (Auto) Urine Yeast (Auto) Random Vancomycin Blood Type Antibody Screen Crossmatch 10/16/18 10/17/18 10/17/18 05:20 05:30 05:30 WBC 6.8 RBC 2.51 L Hgb 8.1 L Hct 24.7 L MCV 98.6 H MCH 32.4 MCHC 32.8 RDW 17.4 H Plt Count 81 L D MPV 11.0 Absolute Neuts (auto) Neutrophils % Neutrophils % (Manual) Band Neutrophils % Lymphocytes % Lymphocytes % (Manual) Monocytes % Monocytes % (Manual) Eosinophils % Eosinophils % (Manual) Basophils % Basophils % (Manual) Myelocytes % (Man) Promyelocytes % (Man) Blast Cells % (Manual) Nucleated RBC % Metamyelocytes Hypochromia Platelet Estimate Platelet Comment Polychromasia Poikilocytosis Anisocytosis Microcytosis Macrocytosis Target Cells PT with INR INR PTT (Actin FS) Anticoagulation Therapy Puncture Site ABG pH ABG pCO2 at Pt Temp ABG pO2 at Pt Temp ABG HCO3 ABG O2 Sat (Measured) ABG O2 Content ABG Base Excess Howard Test VBG pH POC VBG pCO2 POC VBG pO2 VBG HCO3 VBG O2 Sat (Tim) VBG Base Excess O2 Delivery Device Oxygen Flow Rate Vent Mode Vent Rate Mechanical Rate PEEP Pressure Support Vent Sodium 148 H 148 H Potassium 3.8 3.4 L Chloride 114 H 113 H Carbon Dioxide 29 32 Anion Gap 5 L 4 L BUN 29.9 H 29.3 H Creatinine 0.5 L 0.5 L Est GFR (CKD-EPI)AfAm 127.17 127.17 Est GFR (CKD-EPI)NonAf 109.72 109.72 POC Glucometer Random Glucose 63 L 130 H Lactic Acid Calcium 8.3 L 8.4 L Phosphorus Magnesium Iron TIBC Iron Saturation Unsaturated IBC Total Bilirubin 0.2 AST 15 ALT 18 Alkaline Phosphatase 158 H Troponin I Total Protein 5.4 L Albumin 1.5 L TSH Free T4 Urine Color Urine Appearance Urine pH Ur Specific Trilla Urine Protein Urine Glucose (UA) Urine Ketones Urine Blood Urine Nitrite Urine Bilirubin Urine Urobilinogen Ur Leukocyte Esterase Urine WBC (Auto) Urine RBC (Auto) Urine Casts (Auto) U Pathogenic Cast Auto U Epithel Cells (Auto) U Sm Round Cell (Auto) Urine Crystals (Auto) Urine Bacteria (Auto) Urine Yeast (Auto) Random Vancomycin Blood Type Antibody Screen Crossmatch 10/18/18 10/18/18 10/19/18 06:45 06:45 06:45 WBC 8.4 7.6 RBC 2.52 L 2.36 L Hgb 8.0 L 7.6 L Hct 24.6 L 23.0 L MCV 97.9 H 97.4 H MCH 31.8 32.1 MCHC 32.5 32.9 RDW 17.2 H 16.9 H Plt Count 93 L 89 L MPV 10.3 10.4 Absolute Neuts (auto) 7.0 6.1 Neutrophils % 83.1 H 81.1 Neutrophils % (Manual) Band Neutrophils % Lymphocytes % 8.8 D 10.6 D Lymphocytes % (Manual) Monocytes % 5.1 D 5.6 Monocytes % (Manual) Eosinophils % 2.8 2.5 Eosinophils % (Manual) Basophils % 0.2 0.2 Basophils % (Manual) Myelocytes % (Man) Promyelocytes % (Man) Blast Cells % (Manual) Nucleated RBC % 0 0 Metamyelocytes Hypochromia Platelet Estimate Platelet Comment Polychromasia Poikilocytosis Anisocytosis Microcytosis Macrocytosis Target Cells PT with INR INR PTT (Actin FS) Anticoagulation Therapy Puncture Site ABG pH ABG pCO2 at Pt Temp ABG pO2 at Pt Temp ABG HCO3 ABG O2 Sat (Measured) ABG O2 Content ABG Base Excess Howard Test VBG pH POC VBG pCO2 POC VBG pO2 VBG HCO3 VBG O2 Sat (Tim) VBG Base Excess O2 Delivery Device Oxygen Flow Rate Vent Mode Vent Rate Mechanical Rate PEEP Pressure Support Vent Sodium 148 H Potassium 3.7 Chloride 113 H Carbon Dioxide 32 Anion Gap 4 L BUN 27.9 H Creatinine 0.5 L Est GFR (CKD-EPI)AfAm 127.17 Est GFR (CKD-EPI)NonAf 109.72 POC Glucometer Random Glucose 104 Lactic Acid Calcium 8.5 Phosphorus 3.6 Magnesium 2.0 Iron TIBC Iron Saturation Unsaturated IBC Total Bilirubin < 0.1 L AST 13 L ALT 15 Alkaline Phosphatase 158 H Troponin I Total Protein 5.9 L Albumin 1.7 L TSH Free T4 Urine Color Urine Appearance Urine pH Ur Specific Trilla Urine Protein Urine Glucose (UA) Urine Ketones Urine Blood Urine Nitrite Urine Bilirubin Urine Urobilinogen Ur Leukocyte Esterase Urine WBC (Auto) Urine RBC (Auto) Urine Casts (Auto) U Pathogenic Cast Auto U Epithel Cells (Auto) U Sm Round Cell (Auto) Urine Crystals (Auto) Urine Bacteria (Auto) Urine Yeast (Auto) Random Vancomycin Blood Type Antibody Screen Crossmatch 10/19/18 10/20/18 10/20/18 06:45 11:12 15:00 WBC 5.5 RBC 2.53 L Hgb 8.0 L Hct 24.5 L MCV 96.8 H MCH 31.6 MCHC 32.6 RDW 16.7 H Plt Count 105 L MPV 9.9 Absolute Neuts (auto) 3.8 Neutrophils % 68.8 Neutrophils % (Manual) Band Neutrophils % Lymphocytes % 16.1 D Lymphocytes % (Manual) Monocytes % 10.9 H D Monocytes % (Manual) Eosinophils % 4.0 Eosinophils % (Manual) Basophils % 0.2 Basophils % (Manual) Myelocytes % (Man) Promyelocytes % (Man) Blast Cells % (Manual) Nucleated RBC % 0 Metamyelocytes Hypochromia Platelet Estimate Platelet Comment Polychromasia Poikilocytosis Anisocytosis Microcytosis Macrocytosis Target Cells PT with INR INR PTT (Actin FS) Anticoagulation Therapy Puncture Site ABG pH ABG pCO2 at Pt Temp ABG pO2 at Pt Temp ABG HCO3 ABG O2 Sat (Measured) ABG O2 Content ABG Base Excess Howard Test VBG pH POC VBG pCO2 POC VBG pO2 VBG HCO3 VBG O2 Sat (Tim) VBG Base Excess O2 Delivery Device Oxygen Flow Rate Vent Mode Vent Rate Mechanical Rate PEEP Pressure Support Vent Sodium 147 H Potassium 3.6 Chloride 110 H Carbon Dioxide 33 H Anion Gap 4 L BUN 26.3 H Creatinine 0.5 L Est GFR (CKD-EPI)AfAm 127.17 Est GFR (CKD-EPI)NonAf 109.72 POC Glucometer Random Glucose 93 Lactic Acid Calcium 8.3 L Phosphorus Magnesium Iron 14 L TIBC 161 L Iron Saturation 8 L Unsaturated IBC 147 L Total Bilirubin AST ALT Alkaline Phosphatase Troponin I Total Protein Albumin TSH Free T4 Urine Color Urine Appearance Urine pH Ur Specific Trilla Urine Protein Urine Glucose (UA) Urine Ketones Urine Blood Urine Nitrite Urine Bilirubin Urine Urobilinogen Ur Leukocyte Esterase Urine WBC (Auto) Urine RBC (Auto) Urine Casts (Auto) U Pathogenic Cast Auto U Epithel Cells (Auto) U Sm Round Cell (Auto) Urine Crystals (Auto) Urine Bacteria (Auto) Urine Yeast (Auto) Random Vancomycin Blood Type Antibody Screen Crossmatch 10/21/18 10/21/18 10/22/18 12:08 12:08 11:05 WBC 5.9 RBC 2.57 L Hgb 8.1 L Hct 25.0 L MCV 97.3 H MCH 31.5 MCHC 32.3 RDW 16.6 H Plt Count 125 L MPV 9.9 Absolute Neuts (auto) Neutrophils % Neutrophils % (Manual) Band Neutrophils % Lymphocytes % Lymphocytes % (Manual) Monocytes % Monocytes % (Manual) Eosinophils % Eosinophils % (Manual) Basophils % Basophils % (Manual) Myelocytes % (Man) Promyelocytes % (Man) Blast Cells % (Manual) Nucleated RBC % Metamyelocytes Hypochromia Platelet Estimate Platelet Comment Polychromasia Poikilocytosis Anisocytosis Microcytosis Macrocytosis Target Cells PT with INR INR PTT (Actin FS) Anticoagulation Therapy Puncture Site ABG pH ABG pCO2 at Pt Temp ABG pO2 at Pt Temp ABG HCO3 ABG O2 Sat (Measured) ABG O2 Content ABG Base Excess Howard Test VBG pH POC VBG pCO2 POC VBG pO2 VBG HCO3 VBG O2 Sat (Tim) VBG Base Excess O2 Delivery Device Oxygen Flow Rate Vent Mode Vent Rate Mechanical Rate PEEP Pressure Support Vent Sodium 145 145 Potassium 3.3 L 3.3 L Chloride 104 104 Carbon Dioxide 38 H 38 H Anion Gap 2 L 3 L BUN 26.3 H 26.2 H Creatinine 0.5 L 0.4 L Est GFR (CKD-EPI)AfAm 127.17 136.86 Est GFR (CKD-EPI)NonAf 109.72 118.08 POC Glucometer Random Glucose 122 H 101 Lactic Acid Calcium 8.2 L 7.9 L Phosphorus Magnesium 1.9 Iron TIBC Iron Saturation Unsaturated IBC Total Bilirubin < 0.1 L AST 15 ALT 14 Alkaline Phosphatase 125 H Troponin I Total Protein 6.3 L Albumin 1.7 L TSH Free T4 Urine Color Urine Appearance Urine pH Ur Specific Trilla Urine Protein Urine Glucose (UA) Urine Ketones Urine Blood Urine Nitrite Urine Bilirubin Urine Urobilinogen Ur Leukocyte Esterase Urine WBC (Auto) Urine RBC (Auto) Urine Casts (Auto) U Pathogenic Cast Auto U Epithel Cells (Auto) U Sm Round Cell (Auto) Urine Crystals (Auto) Urine Bacteria (Auto) Urine Yeast (Auto) Random Vancomycin Blood Type Antibody Screen Crossmatch 10/23/18 10/23/18 10/25/18 11:16 11:16 07:10 WBC 9.2 RBC 2.68 L Hgb 8.4 L Hct 26.1 L MCV 97.4 H MCH 31.4 MCHC 32.2 RDW 16.5 H Plt Count 167 D MPV 9.9 Absolute Neuts (auto) Neutrophils % Neutrophils % (Manual) Band Neutrophils % Lymphocytes % Lymphocytes % (Manual) Monocytes % Monocytes % (Manual) Eosinophils % Eosinophils % (Manual) Basophils % Basophils % (Manual) Myelocytes % (Man) Promyelocytes % (Man) Blast Cells % (Manual) Nucleated RBC % Metamyelocytes Hypochromia Platelet Estimate Platelet Comment Polychromasia Poikilocytosis Anisocytosis Microcytosis Macrocytosis Target Cells PT with INR INR PTT (Actin FS) Anticoagulation Therapy Puncture Site ABG pH ABG pCO2 at Pt Temp ABG pO2 at Pt Temp ABG HCO3 ABG O2 Sat (Measured) ABG O2 Content ABG Base Excess Howard Test VBG pH POC VBG pCO2 POC VBG pO2 VBG HCO3 VBG O2 Sat (Tim) VBG Base Excess O2 Delivery Device Oxygen Flow Rate Vent Mode Vent Rate Mechanical Rate PEEP Pressure Support Vent Sodium 145 145 Potassium 3.9 4.2 Chloride 104 106 Carbon Dioxide 38 H 35 H Anion Gap 3 L 4 L BUN 24.6 H 30.8 H Creatinine 0.5 L 0.5 L Est GFR (CKD-EPI)AfAm 127.17 127.17 Est GFR (CKD-EPI)NonAf 109.72 109.72 POC Glucometer Random Glucose 155 H 99 Lactic Acid Calcium 8.6 8.9 Phosphorus 3.2 Magnesium 2.0 Iron TIBC Iron Saturation Unsaturated IBC Total Bilirubin AST ALT Alkaline Phosphatase Troponin I Total Protein Albumin TSH Free T4 Urine Color Urine Appearance Urine pH Ur Specific Trilla Urine Protein Urine Glucose (UA) Urine Ketones Urine Blood Urine Nitrite Urine Bilirubin Urine Urobilinogen Ur Leukocyte Esterase Urine WBC (Auto) Urine RBC (Auto) Urine Casts (Auto) U Pathogenic Cast Auto U Epithel Cells (Auto) U Sm Round Cell (Auto) Urine Crystals (Auto) Urine Bacteria (Auto) Urine Yeast (Auto) Random Vancomycin Blood Type Antibody Screen Crossmatch 10/25/18 10/27/18 10/27/18 07:10 08:32 08:32 WBC 9.5 12.1 H RBC 2.56 L 2.25 L Hgb 8.1 L 7.1 L Hct 25.2 L 21.9 L MCV 98.3 H 97.2 H MCH 31.6 31.6 MCHC 32.1 32.5 RDW 16.9 H 16.5 H Plt Count 179 227 D MPV 9.8 9.3 Absolute Neuts (auto) Neutrophils % Neutrophils % (Manual) Band Neutrophils % Lymphocytes % Lymphocytes % (Manual) Monocytes % Monocytes % (Manual) Eosinophils % Eosinophils % (Manual) Basophils % Basophils % (Manual) Myelocytes % (Man) Promyelocytes % (Man) Blast Cells % (Manual) Nucleated RBC % Metamyelocytes Hypochromia Platelet Estimate Platelet Comment Polychromasia Poikilocytosis Anisocytosis Microcytosis Macrocytosis Target Cells PT with INR INR PTT (Actin FS) Anticoagulation Therapy Puncture Site ABG pH ABG pCO2 at Pt Temp ABG pO2 at Pt Temp ABG HCO3 ABG O2 Sat (Measured) ABG O2 Content ABG Base Excess Howard Test VBG pH POC VBG pCO2 POC VBG pO2 VBG HCO3 VBG O2 Sat (Tim) VBG Base Excess O2 Delivery Device Oxygen Flow Rate Vent Mode Vent Rate Mechanical Rate PEEP Pressure Support Vent Sodium 144 Potassium 3.6 Chloride 104 Carbon Dioxide 35 H Anion Gap 6 L BUN 32.8 H Creatinine 0.7 Est GFR (CKD-EPI)AfAm 113.84 Est GFR (CKD-EPI)NonAf 98.23 POC Glucometer Random Glucose 117 H Lactic Acid Calcium 9.1 Phosphorus Magnesium Iron TIBC Iron Saturation Unsaturated IBC Total Bilirubin 0.2 AST 18 ALT 12 L Alkaline Phosphatase 165 H Troponin I Total Protein 7.2 Albumin 1.7 L TSH Free T4 Urine Color Urine Appearance Urine pH Ur Specific Trilla Urine Protein Urine Glucose (UA) Urine Ketones Urine Blood Urine Nitrite Urine Bilirubin Urine Urobilinogen Ur Leukocyte Esterase Urine WBC (Auto) Urine RBC (Auto) Urine Casts (Auto) U Pathogenic Cast Auto U Epithel Cells (Auto) U Sm Round Cell (Auto) Urine Crystals (Auto) Urine Bacteria (Auto) Urine Yeast (Auto) Random Vancomycin Blood Type Antibody Screen Crossmatch 10/27/18 10/27/18 13:28 14:35 WBC RBC Hgb Hct MCV MCH MCHC RDW Plt Count MPV Absolute Neuts (auto) Neutrophils % Neutrophils % (Manual) Band Neutrophils % Lymphocytes % Lymphocytes % (Manual) Monocytes % Monocytes % (Manual) Eosinophils % Eosinophils % (Manual) Basophils % Basophils % (Manual) Myelocytes % (Man) Promyelocytes % (Man) Blast Cells % (Manual) Nucleated RBC % Metamyelocytes Hypochromia Platelet Estimate Platelet Comment Polychromasia Poikilocytosis Anisocytosis Microcytosis Macrocytosis Target Cells PT with INR INR PTT (Actin FS) Anticoagulation Therapy No Result Required. Puncture Site Right radial ABG pH 7.49 H ABG pCO2 at Pt Temp 43.3 ABG pO2 at Pt Temp 79.1 L ABG HCO3 32.9 H ABG O2 Sat (Measured) 96.8 ABG O2 Content 10.1 ABG Base Excess 9.0 H Howard Test Positive VBG pH POC VBG pCO2 POC VBG pO2 VBG HCO3 VBG O2 Sat (Tim) VBG Base Excess O2 Delivery Device No Result Required. Oxygen Flow Rate Yes Vent Mode No Result Required. Vent Rate No Result Required. Mechanical Rate No Result Required. PEEP Pressure Support Vent No Result Required. Sodium Potassium Chloride Carbon Dioxide Anion Gap BUN Creatinine Est GFR (CKD-EPI)AfAm Est GFR (CKD-EPI)NonAf POC Glucometer Random Glucose Lactic Acid Calcium Phosphorus Magnesium Iron TIBC Iron Saturation Unsaturated IBC Total Bilirubin AST ALT Alkaline Phosphatase Troponin I Total Protein Albumin TSH Free T4 Urine Color Urine Appearance Urine pH Ur Specific Trilla Urine Protein Urine Glucose (UA) Urine Ketones Urine Blood Urine Nitrite Urine Bilirubin Urine Urobilinogen Ur Leukocyte Esterase Urine WBC (Auto) Urine RBC (Auto) Urine Casts (Auto) U Pathogenic Cast Auto U Epithel Cells (Auto) U Sm Round Cell (Auto) Urine Crystals (Auto) Urine Bacteria (Auto) Urine Yeast (Auto) Random Vancomycin Blood Type O POSITIVE Antibody Screen Negative Crossmatch See Detail Hospitalist Encounter Outcome: Patient's BP post NS bolus 90/50s Will continue gentle IVF bolus over 5hrs Repeat BP 112/63, P 70 Recommendations/Interventions: Consider transfer to ICU if condition worsens- Transfusion reaction vs Sepsis Critical Care Total Critical Care Time (in minutes): 40 Critical Care Statement: The care of this patient involved high complexity decision making to prevent further life threatening deterioration of the patient 's condition and/or to evaluate & treat vital organ system(s) failure or risk of failure.
[2018-10-27] MEDS ORDERED: SODIUM CHLORIDE 1,000 ML IV STA (20:16)
[2018-10-27] MEDS: MIRTAZAPINE 15 MG TABLET (FP) PO SCH (22:19)
[2018-10-27] MEDS: SENNOSIDES 8.8 MG/5 ML BULK BOTTLE PO SCH (23:25)
[2018-10-28] MEDS: POLYETHYLENE GLYCOL 3350 119 GM BTL GT SCH ×3 (01:16→22:41)
[2018-10-28] MEDS ORDERED: SODIUM CHLORIDE 250 ML IV STA (02:11)
[2018-10-28] MEDS ORDERED: PREGABALIN 50 MG CAPSULE ONE ×3 (04:53→22:15)
[2018-10-28] MEDS ORDERED: PREGABALIN 100 MG CAPSULE ONE ×3 (04:53→22:15)
[2018-10-28] MEDS: PREGABALIN 100 MG, PREGABALIN 50 MG PO SCH ×3 (05:28→22:38)
[2018-10-28] MEDS: MUPIROCIN 2% TOPICAL OINTMENT 22 GM TUBE TP SCH ×3 (07:05→22:40)
[2018-10-28 08:34] LABS: HEMATOCRIT 21.1 % (32.4-45.2); HEMOGLOBIN 7.2 GM/dL (10.7-15.3); MCH 32.6 pg (25.7-33.7); MEAN CELL VOLUME 95.9 fl (80-96); MEAN PLT VOLUME 9.2 fl (7.5-11.1); PLATELET COUNT 222 K/MM3 (134-434); RDW 16.3 % (11.6-15.6); WHITE BLOOD COUNT 8.5 K/mm3 (4.0-10.0)
[2018-10-28 09:26] LABS: ALBUMIN 1.6 g/dl (3.4-5.0); BILIRUBIN,TOTAL 0.4 mg/dL (0.2-1); BLOOD UREA NITROGEN 35.1 mg/dL (7-18); CALCIUM 8.1 mg/dL (8.5-10.1); CREATININE 0.6 mg/dL (0.55-1.3); POTASSIUM 3.3 mmol/L (3.5-5.1); TOT PROT 6.7 g/dl (6.4-8.2)
[2018-10-28] MEDS: SERTRALINE HCL 50 MG TABLET (FP) PO SCH (10:09)
[2018-10-28] MEDS: LORATADINE 10 MG TABLET PO SCH (10:09)
[2018-10-28] MEDS: HEPARIN NA (PORCINE) 5,000 UNITS/ML 1ML VIAL SQ SCH ×2 (10:09→22:42)
[2018-10-28] MEDS: URSODIOL 300 MG CAPSULE PO SCH ×2 (10:09→22:38)
[2018-10-28] MEDS: AMINO ACIDS/PROTEIN HYDROLYS 30 ML LIQUID.PKT PO SCH ×2 (10:10→17:19)
[2018-10-28] MEDS: COLLAGENASE CLOSTRIDIUM HIST. 30 GRAMS TUBE TP SCH (10:11)
[2018-10-28] MEDS: clonazePAM 0.5 MG TABLET PO SCH ×2 (10:11→22:38)
[2018-10-28] MEDS: ACETAMINOPHEN 325 MG TABLET (FP) PO PRN ×2 (10:23→17:19)
--- NOTE | 2018-10-28 11:55 | PN ---
Progress Note (short form) - Note Progress Note: Renal follow up for MANNY Pt seen and examined at the bedside no acute complaints on trach collar Vital Signs Temperature 99.1 F 10/28/18 06:36 Pulse Rate 70 10/28/18 06:36 Respiratory Rate 16 10/28/18 06:36 Blood Pressure 112/63 10/28/18 06:36 O2 Sat by Pulse Oximetry (%) 93 L 10/27/18 21:00 Intake & Output 10/25/18 10/26/18 10/27/18 10/28/18 23:59 23:59 23:59 23:59 Intake Total 663 582 6342 1000 Output Total 4100 1300 1750 350 Balance -3860 -1200 400 650 NAD on vent via trach RRR Dec BS, no rales or wheeze soft, NT/ND + edema in LE CBC, BMP 10/28/18 07:45 10/28/18 07:45 Current Medications Acetaminophen (Tylenol -) 650 mg PO Q6H PRN PRN Reason: FEVER Last Admin: 10/28/18 10:23 Dose: 650 mg Amino Acids (Prosource No Carb Liquid Pkt) 30 ml PO BID@0800,1730 [facility] Last Admin: 10/28/18 10:10 Dose: 30 ml Clonazepam (Klonopin -) 0.5 mg PO BID [facility]ATH[facility] Last Admin: 10/28/18 10:11 Dose: Not Given Collagenase (Santyl -) 1 applic TP DAILY [facility]; Protocol Stop: 10/30/18 12:34 Last Admin: 10/28/18 10:11 Dose: 1 applic Docusate Sodium (Colace Liquid -) 100 mg PO DAILY PRN PRN Reason: CONSTIPATION Last Admin: 10/22/18 11:09 Dose: 100 mg Heparin Sodium (Porcine) (Heparin -) 5,000 unit SQ BID CATHERINE Last Admin: 10/28/18 10:09 Dose: 5,000 unit Loratadine (Claritin -) 10 mg PO DAILY [facility] Last Admin: 10/28/18 10:09 Dose: 10 mg Mirtazapine (Remeron -) 7.5 mg PO HS [facility]ATHERINE Last Admin: 10/27/18 22:19 Dose: 7.5 mg Mupirocin (Bactroban 2% Ointment -) 1 applic TP BID [facility] Last Admin: 08/23/19 10:11 Dose: 1 applic Nystatin (Mycostatin Ointment -) 1 applic TP BID [facility] Last Admin: 10/27/18 22:19 Dose: 1 applic Polyethylene Glycol (Miralax (For Daily Use) -) 17 gm GT BID [facility] Last Admin: 10/28/18 10:10 Dose: Not Given Pregabalin 100 mg/ Pregabalin (50 mg) 150 mg PO TID [facility] Last Admin: 10/28/18 05:28 Dose: 150 mg Senna (Senna Oral Solution -) 8.8 mg PO HS [facility] Last Admin: 10/27/18 23:25 Dose: 8.8 mg Sertraline HCl (Zoloft -) 100 mg PO DAILY [facility] Last Admin: 10/28/18 10:09 Dose: 100 mg Ursodiol (Actigal -) 300 mg PO BID [facility] Last Admin: 10/28/18 10:09 Dose: 300 mg 53 year old woman with history of multiple sclerosis s/p trach on vent as needed, hypothyroidism, recurrent UTI's who presented from home with AMS and found to have Sepsis syndrome with MANNY. #MANNY in setting of sepsis/renal hypoprofusion vs obstruction (occluded Raza) now improved #Hyperkalemia in setting of MANNY (improved) #Sepsis r/o PNA vs. UTI #Multiple sclerosis #Hypothyroidism #Hx of SIADH Renal function stable K has been consistently < 4, can consider change of feed back to 2-emilie will give additional free water via G-tube 200cc Q12h Trend electrolytes daily while in patient case discussed with nutrition who will make recommendations of feeds Tyshawn Doe DO
[2018-10-28] MEDS: NYSTATIN 100000 UNIT/GM TOPICAL OINTMENT 15 GM TUBE TP SCH ×2 (12:00→22:42)
--- NOTE | 2018-10-28 13:00 | PN ---
Progress Note (short form) - Note Progress Note: Patient well known to me. Seen and examined yesterday. Tracheostomy changed to 6 cuffed at bedside without difficulty. Breathing very well. Examined today as well and appears much better. Tracheostomy intact and breathing well on trach collar.
--- NOTE | 2018-10-28 13:30 | PN ---
Progress Note, Physician History of Present Illness: PULMONARY ALERT,ON TRACH COLLAR COMFORTABLE. TRACH CHANGED - Current Medication List Current Medications: Active Medications Acetaminophen (Tylenol -) 650 mg PO Q6H PRN PRN Reason: FEVER Last Admin: 10/28/18 10:23 Dose: 650 mg Amino Acids (Prosource No Carb Liquid Pkt) 30 ml PO BID@0800,1730 [facility] Last Admin: 10/28/18 10:10 Dose: 30 ml Clonazepam (Klonopin -) 0.5 mg PO BID [facility] Last Admin: 10/28/18 10:11 Dose: Not Given Collagenase (Santyl -) 1 applic TP DAILY [facility]; Protocol Stop: 10/30/18 12:34 Last Admin: 10/28/18 10:11 Dose: 1 applic Docusate Sodium (Colace Liquid -) 100 mg PO DAILY PRN PRN Reason: CONSTIPATION Last Admin: 10/22/18 11:09 Dose: 100 mg Heparin Sodium (Porcine) (Heparin -) 5,000 unit SQ BID [facility] Last Admin: 10/28/18 10:09 Dose: 5,000 unit Ferric Carboxymaltose 750 mg/ (Sodium Chloride) 265 mls @ 530 mls/hr IVPB ONCE ONE Stop: 10/28/18 13:46 Loratadine (Claritin -) 10 mg PO DAILY [facility] Last Admin: 10/28/18 10:09 Dose: 10 mg Mirtazapine (Remeron -) 7.5 mg PO HS [facility] Last Admin: 10/27/18 22:19 Dose: 7.5 mg Mupirocin (Bactroban 2% Ointment -) 1 applic TP BID [facility] Last Admin: 10/28/18 10:11 Dose: 1 applic Nystatin (Mycostatin Ointment -) 1 applic TP BID [facility] Last Admin: 10/27/18 22:19 Dose: 1 applic Polyethylene Glycol (Miralax (For Daily Use) -) 17 gm GT BID [facility] Last Admin: 10/28/18 10:10 Dose: Not Given Pregabalin 100 mg/ Pregabalin (50 mg) 150 mg PO TID [facility] Last Admin: 10/28/18 05:28 Dose: 150 mg Senna (Senna Oral Solution -) 8.8 mg PO HS [facility] Last Admin: 10/27/18 23:25 Dose: 8.8 mg Sertraline HCl (Zoloft -) 100 mg PO DAILY [facility] Last Admin: 10/28/18 10:09 Dose: 100 mg Ursodiol (Actigal -) 300 mg PO BID [facility] Last Admin: 10/28/18 10:09 Dose: 300 mg - Objective Vital Signs: Vital Signs Temperature 99.1 F 10/28/18 06:36 Pulse Rate 70 10/28/18 06:36 Respiratory Rate 14 10/28/18 09:10 Blood Pressure 112/63 10/28/18 06:36 O2 Sat by Pulse Oximetry (%) 93 L 10/27/18 21:00 Constitutional: Yes: Well Nourished, Calm Eyes: Yes: WNL HENT: Yes: WNL Neck: Yes: Supple (TRACH) Cardiovascular: Yes: Regular Rate and Rhythm, S2, S3 Respiratory: Yes: Rhonchi (FEW RHONCHI) Gastrointestinal: Yes: Normal Bowel Sounds, Soft Extremities: Yes: WNL Edema: No Labs: CBC, BMP 10/28/18 07:45 10/28/18 07:45 INR, PTT INR 1.13 (0.83-1.09) H 10/12/18 11:30 Problem List - Problems (1) Hypotension Code(s): I95.9 - HYPOTENSION, UNSPECIFIED (2) Pneumonia Code(s): J18.9 - PNEUMONIA, UNSPECIFIED ORGANISM Qualifiers: Pneumonia type: due to unspecified organism Laterality: right Lung location: lower lobe of lung Qualified Code(s): J18.1 - Lobar pneumonia, unspecified organism (3) Septic shock Code(s): A41.9 - SEPSIS, UNSPECIFIED ORGANISM; R65.21 - SEVERE SEPSIS WITH SEPTIC SHOCK (4) Acute on chronic respiratory failure with hypoxia and hypercapnia Code(s): J96.21 - ACUTE AND CHRONIC RESPIRATORY FAILURE WITH HYPOXIA; J96.22 - ACUTE AND CHRONIC RESPIRATORY FAILURE WITH HYPERCAPNIA (5) Anemia Code(s): D64.9 - ANEMIA, UNSPECIFIED (6) Chronic hypercapnic respiratory failure Code(s): J96.12 - CHRONIC RESPIRATORY FAILURE WITH HYPERCAPNIA (7) Edema Code(s): R60.9 - EDEMA, UNSPECIFIED (8) Functional quadriplegia Code(s): R53.2 - FUNCTIONAL QUADRIPLEGIA (9) Functional 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 (10) Hx of multiple sclerosis Code(s): Z86.69 - PERSONAL HISTORY OF DIS OF THE NERVOUS SYS AND SENSE ORGANS (11) Neurogenic bladder Code(s): N31.9 - NEUROMUSCULAR DYSFUNCTION OF BLADDER, UNSPECIFIED (12) Sepsis Code(s): A41.9 - SEPSIS, UNSPECIFIED ORGANISM Qualifiers: Sepsis type: sepsis due to unspecified organism Qualified Code(s): A41.9 - Sepsis, unspecified organism Assessment/Plan ASSESSMENT/PLAN: Resolved Septic Shock secondary to urinary tract source Pneumonia improved Acute Hypoxic Hypercapneic Respiratory Failure improved Anemia Hypothyroidism Multiple Sclerosis Trigeminal Neuralgia Gallstones Anemia Vent support ac mode at night Trach collar as tolerated VTE prophylaxis Enteral feeds Anemia consider heme evaluation monitor h+h DR ELDER
[2018-10-28] MEDS ORDERED: FERRIC CARBOXYMALTOSE 750 MG in SODIUM CHLORIDE 250 ML IVPB ONE ×2 (13:45→14:00)
[2018-10-28] MEDS ORDERED: IRON SUCROSE INJECTION 200 MG in SODIUM CHLORIDE 90 ML IVPB ONE (14:56)
--- NOTE | 2018-10-28 15:46 | PN ---
Progress Note, Physician Chief Complaint: Pneumonia Sepsis UTI acute on chronic respiratory failure History of Present Illness: Previous notes and events reviewed sleeping but arouseable to verbal and tactile stimuli NAD connected to [facility] vent denies complaints of chest pain Hg 7.1 yesterday, during transfusion patient became hypotensive with BP 80/30 and transfusion stopped, BP improved today, Hg 7.2 - Current Medication List Current Medications: Active Medications Acetaminophen (Tylenol -) 650 mg PO Q6H PRN PRN Reason: FEVER Last Admin: 10/28/18 10:23 Dose: 650 mg Amino Acids (Prosource No Carb Liquid Pkt) 30 ml PO BID@0800,1730 [facility] Last Admin: 10/28/18 10:10 Dose: 30 ml Clonazepam (Klonopin -) 0.5 mg PO BID [facility] Last Admin: 10/28/18 10:11 Dose: Not Given Collagenase (Santyl -) 1 applic TP DAILY [facility]; Protocol Stop: 10/30/18 12:34 Last Admin: 10/28/18 10:11 Dose: 1 applic Docusate Sodium (Colace Liquid -) 100 mg PO DAILY PRN PRN Reason: CONSTIPATION Last Admin: 10/22/18 11:09 Dose: 100 mg Heparin Sodium (Porcine) (Heparin -) 5,000 unit SQ BID [facility] Last Admin: 10/28/18 10:09 Dose: 5,000 unit Ferric Carboxymaltose 750 mg/ (Sodium Chloride) 265 mls @ 530 mls/hr IVPB ONCE ONE Stop: 10/28/18 14:14 Iron Sucrose 200 mg/ Sodium (Chloride) 100 mls @ 100 mls/hr IVPB ONCE ONE Stop: 10/28/18 15:55 Loratadine (Claritin -) 10 mg PO DAILY [facility] Last Admin: 10/28/18 10:09 Dose: 10 mg Mirtazapine (Remeron -) 7.5 mg PO HS [facility] Last Admin: 10/27/18 22:19 Dose: 7.5 mg Mupirocin (Bactroban 2% Ointment -) 1 applic TP BID [facility] Last Admin: 10/28/18 10:11 Dose: 1 applic Nystatin (Mycostatin Ointment -) 1 applic TP BID [facility] Last Admin: 10/27/18 22:19 Dose: 1 applic Polyethylene Glycol (Miralax (For Daily Use) -) 17 gm GT BID [facility] Last Admin: 10/28/18 10:10 Dose: Not Given Pregabalin 100 mg/ Pregabalin (50 mg) 150 mg PO TID [facility] Last Admin: 10/28/18 14:18 Dose: 150 mg Senna (Senna Oral Solution -) 8.8 mg PO HS [facility] Last Admin: 10/27/18 23:25 Dose: 8.8 mg Sertraline HCl (Zoloft -) 100 mg PO DAILY [facility] Last Admin: 10/28/18 10:09 Dose: 100 mg Ursodiol (Actigal -) 300 mg PO BID [facility] Last Admin: 10/28/18 10:09 Dose: 300 mg - Objective Vital Signs: Vital Signs Temperature 99.1 F 10/28/18 06:36 Pulse Rate 92 H 10/28/18 14:30 Respiratory Rate 16 10/28/18 14:15 Blood Pressure 100/64 10/28/18 14:15 O2 Sat by Pulse Oximetry (%) 98 10/28/18 14:30 Constitutional: Yes: No Distress, Calm Eyes: Yes: Conjunctiva Clear HENT: Yes: Atraumatic Neck: Yes: Other (trache) Cardiovascular: Yes: Regular Rate and Rhythm Respiratory: Yes: Regular, Rhonchi, Other (O2 via trach collar) Gastrointestinal: Yes: Normal Bowel Sounds, Soft Genitourinary: Yes: Raza Present Musculoskeletal: Yes: Muscle Weakness Extremities: Yes: WNL Edema: No Wound/Incision: Yes: Dressing Dry and Intact Neurological: Yes: Alert, Weakness Psychiatric: Yes: Alert, Oriented Labs: CBC, BMP 10/28/18 07:45 10/28/18 07:45 INR, PTT INR 1.13 (0.83-1.09) H 10/12/18 11:30 Microbiology 10/19/18 19:00 Blood - Peripheral Venous Blood Culture - Final NO GROWTH AFTER 5 DAYS INCUBATION 10/19/18 19:00 Blood - Peripheral Venous Blood Culture - Final NO GROWTH AFTER 5 DAYS INCUBATION 10/12/18 11:30 Blood - Peripheral Venous Blood Culture - Final NO GROWTH AFTER 5 DAYS INCUBATION 10/12/18 17:20 Urine - Urine - Catheterized Urine Culture - Final Kluyvera Ascorbata Klebsiella Pneumoniae 10/13/18 01:50 Sputum - Endotrachea Suction/Ventilator Gram Stain - Final 10/13/18 01:50 Sputum - Endotrachea Suction/Ventilator Sputum Culture - Final Pseudomonas Aeruginosa 10/12/18 11:30 Blood - Peripheral Venous Blood Culture - Final Escherichia Coli 10/12/18 17:20 Urine For Antigen Detection Legionella Antigen - Final 10/12/18 17:20 Urine For Antigen Detection Streptococcus pneumoniae Antigen (M - Final 10/12/18 11:30 Urine - Urine - Catheterized Urine Culture - Final Contaminated: Please Repeat Problem List - Problems (1) Acute renal insufficiency Assessment/Plan: -BUN/Cr 35.1/0.6 -Renalon board -Renal US -US shows right kidney with mild to moderate hydronephrosis and without gross evidence of stones Code(s): N28.9 - DISORDER OF KIDNEY AND URETER, UNSPECIFIED (2) Pneumonia Assessment/Plan: -ID on board -no leukocytosis -afebrile -off antibiotics -CXR shows RLL zone airspace opacities, atelectasis changes without blunting of the right costophrenic angles -Pulm on board -keep SpO2 >90% -BC and Urine Legionella neg Code(s): J18.9 - PNEUMONIA, UNSPECIFIED ORGANISM Qualifiers: Pneumonia type: due to unspecified organism Laterality: right Lung location: lower lobe of lung Qualified Code(s): J18.1 - Lobar pneumonia, unspecified organism (3) Acute on chronic respiratory failure with hypoxia and hypercapnia Assessment/Plan: -Pulm on board -mechanically ventilated -keep SpO2 >90% -CXR shows RLL zone airspace opacities, atelectasis changes without blunting of the right costophrenic angles -Dr Tompkins change trach on 10/27/18 Code(s): J96.21 - ACUTE AND CHRONIC RESPIRATORY FAILURE WITH HYPOXIA; J96.22 - ACUTE AND CHRONIC RESPIRATORY FAILURE WITH HYPERCAPNIA (4) Anemia Assessment/Plan: -Hg 7.2 -since recent transfusion reaction Iron Sucrose 200mg IVPB ordered -monitor Hg daily -transfuse for Hg <8.0 Code(s): D64.9 - ANEMIA, UNSPECIFIED (5) Functional quadriplegia Assessment/Plan: -PT -fall precautions Code(s): R53.2 - FUNCTIONAL QUADRIPLEGIA (6) Hx of multiple sclerosis Assessment/Plan: -fall precaution -PT -turn q2h and offloading Code(s): Z86.69 - PERSONAL HISTORY OF DIS OF THE NERVOUS SYS AND SENSE ORGANS (7) Hypothyroid Assessment/Plan: -Levothyroxine Code(s): E03.9 - HYPOTHYROIDISM, UNSPECIFIED (8) Sepsis Assessment/Plan: -ID on board -no leukocytosis -afebrile -off antibiotics -CXR shows RLL zone airspace opacities, atelectasis changes without blunting of the right costophrenic angles -Pulm on board -keep SpO2 >90% -BC and Urine Legionella neg -UA 3+ leuks, 3+ blood, 3+ protein -UC positive -Sputum culture positive Code(s): A41.9 - SEPSIS, UNSPECIFIED ORGANISM Qualifiers: Sepsis type: sepsis due to unspecified organism Qualified Code(s): A41.9 - Sepsis, unspecified organism (9) Hypotension Assessment/Plan: -resolved -monitor BP Code(s): I95.9 - HYPOTENSION, UNSPECIFIED (10) Gallstones Assessment/Plan: -US shows hepatomegaly, gallstones without wall thickening, trace of pericholecystic free fluid, dilated CBD 9mm -Surgical and GI consult -Actigal Code(s): K80.20 - CALCULUS OF GALLBLADDER W/O CHOLECYSTITIS W/O OBSTRUCTION (11) Altered mental status Assessment/Plan: -resolving-a&ox3 on exam -2/2 sepsis Code(s): R41.82 - ALTERED MENTAL STATUS, UNSPECIFIED Assessment/Plan see problem list dvt ppx
[2018-10-28] MEDS ORDERED: PT OWN MED DRAWER 7, Y5N ONE (22:16)
[2018-10-28] MEDS: MIRTAZAPINE 15 MG TABLET (FP) PO SCH (22:38)
[2018-10-28] MEDS: SENNOSIDES 8.8 MG/5 ML BULK BOTTLE PO SCH (22:42)
[2018-10-29] MEDS ORDERED: PREGABALIN 100 MG CAPSULE ONE ×3 (07:15→20:30)
[2018-10-29] MEDS ORDERED: PREGABALIN 50 MG CAPSULE ONE ×3 (07:15→20:29)
[2018-10-29] MEDS: PREGABALIN 100 MG, PREGABALIN 50 MG PO SCH ×3 (07:18→21:13)
[2018-10-29 07:55] LABS: HEMATOCRIT 22.1 % (32.4-45.2); HEMOGLOBIN 7.4 GM/dL (10.7-15.3); MCH 32.4 pg (25.7-33.7); MCHC 33.6 g/dl (32.0-36.0); MEAN CELL VOLUME 96.4 fl (80-96); MEAN PLT VOLUME 9.4 fl (7.5-11.1); PLATELET COUNT 231 K/MM3 (134-434); RBC 2.29 M/mm3 (3.60-5.2); RDW 16.2 % (11.6-15.6); WHITE BLOOD COUNT 8.4 K/mm3 (4.0-10.0)
[2018-10-29 08:28] LABS: BLOOD UREA NITROGEN 38.1 mg/dL (7-18); CALCIUM 8.3 mg/dL (8.5-10.1); CREATININE 0.7 mg/dL (0.55-1.3); POTASSIUM 3.4 mmol/L (3.5-5.1)
[2018-10-29] MEDS: AMINO ACIDS/PROTEIN HYDROLYS 30 ML LIQUID.PKT PO SCH ×2 (09:58→17:58)
[2018-10-29] MEDS: NYSTATIN 100000 UNIT/GM TOPICAL OINTMENT 15 GM TUBE TP SCH ×2 (10:00→21:14)
--- NOTE | 2018-10-29 10:26 | PN ---
Progress Note, Physician History of Present Illness: PULMONARY AWAKE,ALERT,NO DISTRESS,ON TRACH COLLAR - Current Medication List Current Medications: Active Medications Acetaminophen (Tylenol -) 650 mg PO Q6H PRN PRN Reason: FEVER Last Admin: 10/28/18 17:19 Dose: 650 mg Amino Acids (Prosource No Carb Liquid Pkt) 30 ml PO BID@0800,1730 [facility] Last Admin: 10/28/18 17:19 Dose: 30 ml Clonazepam (Klonopin -) 0.5 mg PO BID [facility] Last Admin: 10/28/18 22:38 Dose: 0.5 mg Collagenase (Santyl -) 1 applic TP DAILY [facility]; Protocol Stop: 10/30/18 12:34 Last Admin: 10/28/18 10:11 Dose: 1 applic Docusate Sodium (Colace Liquid -) 100 mg PO DAILY PRN PRN Reason: CONSTIPATION Last Admin: 10/22/18 11:09 Dose: 100 mg Heparin Sodium (Porcine) (Heparin -) 5,000 unit SQ BID [facility] Last Admin: 10/28/18 22:42 Dose: 5,000 unit Ferric Carboxymaltose 750 mg/ (Sodium Chloride) 265 mls @ 530 mls/hr IVPB ONCE ONE Stop: 10/28/18 14:14 Loratadine (Claritin -) 10 mg PO DAILY [facility] Last Admin: 10/28/18 10:09 Dose: 10 mg Mirtazapine (Remeron -) 7.5 mg PO HS [facility] Last Admin: 10/28/18 22:38 Dose: 7.5 mg Mupirocin (Bactroban 2% Ointment -) 1 applic TP BID [facility] Last Admin: 10/28/18 22:40 Dose: 1 applic Nystatin (Mycostatin Ointment -) 1 applic TP BID [facility] Last Admin: 10/28/18 22:42 Dose: 1 applic Polyethylene Glycol (Miralax (For Daily Use) -) 17 gm GT BID [facility] Last Admin: 10/28/18 22:41 Dose: Not Given Pregabalin 100 mg/ Pregabalin (50 mg) 150 mg PO TID [facility] Last Admin: 10/29/18 07:18 Dose: 150 mg Senna (Senna Oral Solution -) 8.8 mg PO HS [facility] Last Admin: 10/28/18 22:42 Dose: 8.8 mg Sertraline HCl (Zoloft -) 100 mg PO DAILY [facility] Last Admin: 10/28/18 10:09 Dose: 100 mg Ursodiol (Actigal -) 300 mg PO BID [facility] Last Admin: 10/28/18 22:38 Dose: 300 mg - Objective Vital Signs: Vital Signs Temperature 98.7 F 10/29/18 06:00 Pulse Rate 78 10/29/18 09:41 Respiratory Rate 16 10/29/18 06:31 Blood Pressure 127/64 10/29/18 06:00 O2 Sat by Pulse Oximetry (%) 97 10/29/18 09:41 Constitutional: Yes: Well Nourished, Calm Eyes: Yes: WNL HENT: Yes: WNL Neck: Yes: Supple (TRACH) Cardiovascular: Yes: Regular Rate and Rhythm, S1, S2 Respiratory: Yes: Rhonchi (FEW RHONCHI) Gastrointestinal: Yes: Normal Bowel Sounds, Soft Extremities: Yes: WNL Edema: Yes Edema: LLE: Trace, RLE: Trace Labs: CBC, BMP 10/29/18 06:50 10/29/18 06:50 INR, PTT INR 1.13 (0.83-1.09) H 10/12/18 11:30 Problem List - Problems (1) Hypotension Code(s): I95.9 - HYPOTENSION, UNSPECIFIED (2) Pneumonia Code(s): J18.9 - PNEUMONIA, UNSPECIFIED ORGANISM Qualifiers: Pneumonia type: due to unspecified organism Laterality: right Lung location: lower lobe of lung Qualified Code(s): J18.1 - Lobar pneumonia, unspecified organism (3) Septic shock Code(s): A41.9 - SEPSIS, UNSPECIFIED ORGANISM; R65.21 - SEVERE SEPSIS WITH SEPTIC SHOCK (4) Acute on chronic respiratory failure with hypoxia and hypercapnia Code(s): J96.21 - ACUTE AND CHRONIC RESPIRATORY FAILURE WITH HYPOXIA; J96.22 - ACUTE AND CHRONIC RESPIRATORY FAILURE WITH HYPERCAPNIA (5) Anemia Code(s): D64.9 - ANEMIA, UNSPECIFIED (6) Chronic hypercapnic respiratory failure Code(s): J96.12 - CHRONIC RESPIRATORY FAILURE WITH HYPERCAPNIA (7) Edema Code(s): R60.9 - EDEMA, UNSPECIFIED (8) Functional quadriplegia Code(s): R53.2 - FUNCTIONAL QUADRIPLEGIA (9) Functional 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 (10) Hx of multiple sclerosis Code(s): Z86.69 - PERSONAL HISTORY OF DIS OF THE NERVOUS SYS AND SENSE ORGANS (11) Neurogenic bladder Code(s): N31.9 - NEUROMUSCULAR DYSFUNCTION OF BLADDER, UNSPECIFIED (12) Sepsis Code(s): A41.9 - SEPSIS, UNSPECIFIED ORGANISM Qualifiers: Sepsis type: sepsis due to unspecified organism Qualified Code(s): A41.9 - Sepsis, unspecified organism Assessment/Plan ASSESSMENT/PLAN: Resolved Septic Shock secondary to urinary tract source Pneumonia improved Acute Hypoxic Hypercapneic Respiratory Failure improved Anemia Hypothyroidism Multiple Sclerosis Trigeminal Neuralgia Gallstones Anemia Vent support ac mode at night Trach collar as tolerated VTE prophylaxis Enteral feeds Anemia consider heme evaluation monitor h+h normal transfusion threshold DR ELDER
[2018-10-29] MEDS: URSODIOL 300 MG CAPSULE PO SCH ×2 (10:58→21:13)
[2018-10-29] MEDS: HEPARIN NA (PORCINE) 5,000 UNITS/ML 1ML VIAL SQ SCH ×2 (10:59→21:13)
[2018-10-29] MEDS: LORATADINE 10 MG TABLET PO SCH (10:59)
[2018-10-29] MEDS: clonazePAM 0.5 MG TABLET PO SCH ×2 (10:59→21:13)
[2018-10-29] MEDS: POLYETHYLENE GLYCOL 3350 119 GM BTL GT SCH ×2 (11:00→21:14)
[2018-10-29] MEDS: SERTRALINE HCL 50 MG TABLET (FP) PO SCH (11:01)
[2018-10-29] MEDS ORDERED: PT OWN MED DRAWER 7, Y5N ONE (11:18)
[2018-10-29] MEDS ORDERED: POTASSIUM CHLORIDE ORAL LIQUID 20 MEQ/15 ML PO ONE (11:49)
[2018-10-29] MEDS ORDERED: HYDROCORTISONE SOD SUCCINATE 100 MG/2 ML VIAL IVPB ONE (12:33)
[2018-10-29] MEDS ORDERED: IRON SUCROSE INJECTION 200 MG in SODIUM CHLORIDE 90 ML IVPB ONE (13:10)
--- NOTE | 2018-10-29 13:15 | PN ---
Progress Note, Physician Chief Complaint: Pneumonia Sepsis UTI acute on chronic respiratory failure History of Present Illness: Previous notes and events reviewed sleeping but arouseable to verbal and tactile stimuli NAD connected to [facility] vent denies complaints of chest pain Hg 7.4 after Iron Sucrose spoke with patient mother and patient that since Hg still low would order PRBC transfusion with premedication given 30min before transfusion, patient refuse blood transfusion and wishes for Iron sucrose infusion - Current Medication List Current Medications: Active Medications Acetaminophen (Tylenol -) 650 mg PO Q6H PRN PRN Reason: FEVER Last Admin: 10/28/18 17:19 Dose: 650 mg Amino Acids (Prosource No Carb Liquid Pkt) 30 ml PO BID@0800,1730 [facility] Last Admin: 10/28/18 17:19 Dose: 30 ml Clonazepam (Klonopin -) 0.5 mg PO BID [facility] Last Admin: 10/28/18 22:38 Dose: 0.5 mg Collagenase (Santyl -) 1 applic TP DAILY [facility]; Protocol Stop: 10/30/18 12:34 Last Admin: 10/28/18 10:11 Dose: 1 applic Docusate Sodium (Colace Liquid -) 100 mg PO DAILY PRN PRN Reason: CONSTIPATION Last Admin: 10/22/18 11:09 Dose: 100 mg Heparin Sodium (Porcine) (Heparin -) 5,000 unit SQ BID [facility] Last Admin: 10/28/18 22:42 Dose: 5,000 unit Ferric Carboxymaltose 750 mg/ (Sodium Chloride) 265 mls @ 530 mls/hr IVPB ONCE ONE Stop: 10/28/18 14:14 Loratadine (Claritin -) 10 mg PO DAILY [facility] Last Admin: 10/28/18 10:09 Dose: 10 mg Mirtazapine (Remeron -) 7.5 mg PO HS [facility] Last Admin: 10/28/18 22:38 Dose: 7.5 mg Mupirocin (Bactroban 2% Ointment -) 1 applic TP BID [facility] Last Admin: 10/28/18 22:40 Dose: 1 applic Nystatin (Mycostatin Ointment -) 1 applic TP BID [facility] Last Admin: 10/28/18 22:42 Dose: 1 applic Polyethylene Glycol (Miralax (For Daily Use) -) 17 gm GT BID [facility] Last Admin: 10/28/18 22:41 Dose: Not Given Pregabalin 100 mg/ Pregabalin (50 mg) 150 mg PO TID [facility] Last Admin: 10/29/18 07:18 Dose: 150 mg Senna (Senna Oral Solution -) 8.8 mg PO HS [facility] Last Admin: 10/28/18 22:42 Dose: 8.8 mg Sertraline HCl (Zoloft -) 100 mg PO DAILY [facility] Last Admin: 10/28/18 10:09 Dose: 100 mg Ursodiol (Actigal -) 300 mg PO BID [facility] Last Admin: 10/28/18 22:38 Dose: 300 mg - Objective Vital Signs: Vital Signs Temperature 98.7 F 10/29/18 06:00 Pulse Rate 78 10/29/18 09:41 Respiratory Rate 16 10/29/18 06:31 Blood Pressure 127/64 10/29/18 06:00 O2 Sat by Pulse Oximetry (%) 97 10/29/18 09:41 Constitutional: Yes: No Distress, Calm Eyes: Yes: Conjunctiva Clear HENT: Yes: Atraumatic Neck: Yes: Other (trach) Cardiovascular: Yes: Regular Rate and Rhythm Respiratory: Yes: Regular, Rhonchi, Other (O2 via trach collar) Gastrointestinal: Yes: Normal Bowel Sounds, Soft Genitourinary: Yes: Raza Present Musculoskeletal: Yes: Muscle Weakness Extremities: Yes: WNL Edema: No Neurological: Yes: Alert, Pre-Existing Deficit Psychiatric: Yes: Alert, Oriented Labs: CBC, BMP 10/29/18 06:50 10/29/18 06:50 INR, PTT INR 1.13 (0.83-1.09) H 10/12/18 11:30 Microbiology 10/28/18 00:05 Urine - Urine Raza Urine Culture - Preliminary 10/27/18 20:45 Blood - Peripheral Venous Blood Culture - Preliminary NO GROWTH OBTAINED AFTER 24 HOURS, INCUBATION TO CONTINUE FOR 4 DAYS. 10/27/18 19:30 Blood - Peripheral Venous Blood Culture - Preliminary Pending Organism 10/19/18 19:00 Blood - Peripheral Venous Blood Culture - Final NO GROWTH AFTER 5 DAYS INCUBATION 10/19/18 19:00 Blood - Peripheral Venous Blood Culture - Final NO GROWTH AFTER 5 DAYS INCUBATION 10/12/18 11:30 Blood - Peripheral Venous Blood Culture - Final NO GROWTH AFTER 5 DAYS INCUBATION 10/12/18 17:20 Urine - Urine - Catheterized Urine Culture - Final Anum Ascorbata Klebsiella Pneumoniae 10/13/18 01:50 Sputum - Endotrachea Suction/Ventilator Gram Stain - Final 10/13/18 01:50 Sputum - Endotrachea Suction/Ventilator Sputum Culture - Final Pseudomonas Aeruginosa 10/12/18 11:30 Blood - Peripheral Venous Blood Culture - Final Escherichia Coli 10/12/18 17:20 Urine For Antigen Detection Legionella Antigen - Final 10/12/18 17:20 Urine For Antigen Detection Streptococcus pneumoniae Antigen (M - Final 10/12/18 11:30 Urine - Urine - Catheterized Urine Culture - Final Contaminated: Please Repeat Problem List - Problems (1) Acute renal insufficiency Assessment/Plan: -BUN/Cr 38.1/0.7--showing uptrend -Renal on board -Renal US -US shows right kidney with mild to moderate hydronephrosis and without gross evidence of stones Code(s): N28.9 - DISORDER OF KIDNEY AND URETER, UNSPECIFIED (2) Pneumonia Assessment/Plan: -ID on board -no leukocytosis -afebrile -off antibiotics -CXR shows RLL zone airspace opacities, atelectasis changes without blunting of the right costophrenic angles -Pulm on board -keep SpO2 >90% -BC and Urine Legionella neg Code(s): J18.9 - PNEUMONIA, UNSPECIFIED ORGANISM Qualifiers: Pneumonia type: due to unspecified organism Laterality: right Lung location: lower lobe of lung Qualified Code(s): J18.1 - Lobar pneumonia, unspecified organism (3) Acute on chronic respiratory failure with hypoxia and hypercapnia Assessment/Plan: -Pulm on board -mechanically ventilated -keep SpO2 >90% -CXR shows RLL zone airspace opacities, atelectasis changes without blunting of the right costophrenic angles -Dr Tompkins change trach on 10/27/18 Code(s): J96.21 - ACUTE AND CHRONIC RESPIRATORY FAILURE WITH HYPOXIA; J96.22 - ACUTE AND CHRONIC RESPIRATORY FAILURE WITH HYPERCAPNIA (4) Anemia Assessment/Plan: -Hg 7.4 -patient refuse blood transfusion -Iron Sucrose 200mg IVPB x 1 -monitor Hg daily -transfuse for Hg <8.0 -Stool OB Code(s): D64.9 - ANEMIA, UNSPECIFIED (5) Functional quadriplegia Assessment/Plan: -PT -fall precautions Code(s): R53.2 - FUNCTIONAL QUADRIPLEGIA (6) Hx of multiple sclerosis Assessment/Plan: -fall precaution -PT -turn q2h and offloading Code(s): Z86.69 - PERSONAL HISTORY OF DIS OF THE NERVOUS SYS AND SENSE ORGANS (7) Hypothyroid Assessment/Plan: -Levothyroxine Code(s): E03.9 - HYPOTHYROIDISM, UNSPECIFIED (8) Sepsis Assessment/Plan: -ID on board -no leukocytosis -afebrile -off antibiotics -CXR shows RLL zone airspace opacities, atelectasis changes without blunting of the right costophrenic angles -Pulm on board -keep SpO2 >90% -BC and Urine Legionella neg -UA 3+ leuks, 3+ blood, 3+ protein -UC positive -Sputum culture positive Code(s): A41.9 - SEPSIS, UNSPECIFIED ORGANISM Qualifiers: Sepsis type: sepsis due to unspecified organism Qualified Code(s): A41.9 - Sepsis, unspecified organism (9) Hypotension Assessment/Plan: -resolved -monitor BP Code(s): I95.9 - HYPOTENSION, UNSPECIFIED (10) Gallstones Assessment/Plan: -US shows hepatomegaly, gallstones without wall thickening, trace of pericholecystic free fluid, dilated CBD 9mm -Surgical and GI consult -Actigal Code(s): K80.20 - CALCULUS OF GALLBLADDER W/O CHOLECYSTITIS W/O OBSTRUCTION (11) Altered mental status Assessment/Plan: -resolving-a&ox3 on exam -2/2 sepsis Code(s): R41.82 - ALTERED MENTAL STATUS, UNSPECIFIED Assessment/Plan see problem list dvt ppx
--- NOTE | 2018-10-29 14:36 | PN ---
Progress Note, Physician History of Present Illness: Pt seen and examined at bedside. She is awake and appears comfortable. She was found to have worsening anemia. - Current Medication List Current Medications: Active Medications Acetaminophen (Tylenol -) 650 mg PO Q6H PRN PRN Reason: FEVER Last Admin: 10/28/18 17:19 Dose: 650 mg Amino Acids (Prosource No Carb Liquid Pkt) 30 ml PO BID@0800,1730 [facility] Last Admin: 10/28/18 17:19 Dose: 30 ml Clonazepam (Klonopin -) 0.5 mg PO BID [facility] Last Admin: 10/28/18 22:38 Dose: 0.5 mg Collagenase (Santyl -) 1 applic TP DAILY [facility]; Protocol Stop: 10/30/18 12:34 Last Admin: 10/28/18 10:11 Dose: 1 applic Docusate Sodium (Colace Liquid -) 100 mg PO DAILY PRN PRN Reason: CONSTIPATION Last Admin: 10/22/18 11:09 Dose: 100 mg Heparin Sodium (Porcine) (Heparin -) 5,000 unit SQ BID [facility] Last Admin: 10/28/18 22:42 Dose: 5,000 unit Ferric Carboxymaltose 750 mg/ (Sodium Chloride) 265 mls @ 530 mls/hr IVPB ONCE ONE Stop: 10/28/18 14:14 Loratadine (Claritin -) 10 mg PO DAILY [facility] Last Admin: 10/28/18 10:09 Dose: 10 mg Mirtazapine (Remeron -) 7.5 mg PO [facility] Last Admin: 10/28/18 22:38 Dose: 7.5 mg Mupirocin (Bactroban 2% Ointment -) 1 applic TP BID [facility] Last Admin: 10/28/18 22:40 Dose: 1 applic Nystatin (Mycostatin Ointment -) 1 applic TP BID [facility] Last Admin: 10/28/18 22:42 Dose: 1 applic Polyethylene Glycol (Miralax (For Daily Use) -) 17 gm GT BID [facility] Last Admin: 10/28/18 22:41 Dose: Not Given Pregabalin 100 mg/ Pregabalin (50 mg) 150 mg PO TID [facility] Last Admin: 10/29/18 07:18 Dose: 150 mg Senna (Senna Oral Solution -) 8.8 mg PO HS [facility] Last Admin: 10/28/18 22:42 Dose: 8.8 mg Sertraline HCl (Zoloft -) 100 mg PO DAILY [facility] Last Admin: 10/28/18 10:09 Dose: 100 mg Ursodiol (Actigal -) 300 mg PO BID [facility] Last Admin: 10/28/18 22:38 Dose: 300 mg - Objective Vital Signs: Vital Signs Temperature 98.7 F 10/29/18 06:00 Pulse Rate 100 H 10/29/18 13:55 Respiratory Rate 16 10/29/18 06:31 Blood Pressure 127/64 10/29/18 06:00 O2 Sat by Pulse Oximetry (%) 98 10/29/18 13:55 Constitutional: Yes: Calm Neck: Yes: Other (trache) Cardiovascular: Yes: S1, S2 Respiratory: Yes: Other Gastrointestinal: Yes: Soft Genitourinary: Yes: Incontinence Musculoskeletal: Yes: Muscle Weakness Edema: Yes Edema: LLE: Trace, RLE: Trace Neurological: Yes: Oriented, Pre-Existing Deficit Labs: CBC, BMP 10/29/18 06:50 10/29/18 06:50 INR, PTT INR 1.13 (0.83-1.09) H 10/12/18 11:30 Assessment/Plan Current Medications Generic Name Dose Route Start Last Admin Trade Name Freq PRN Reason Stop Dose Admin Acetaminophen 650 mg 10/17/18 16:19 10/28/18 17:19 Tylenol - PO 650 mg Q6H PRN Administration FEVER Amino Acids 30 ml 10/18/18 17:30 10/28/18 17:19 Prosource No Carb Liquid Pkt PO 30 ml BID@0800,1730 [facility] Administration Clonazepam 0.5 mg 10/17/18 22:00 10/28/18 22:38 Klonopin - PO 0.5 mg BID [facility] Administration Collagenase 1 applic 10/27/18 12:35 10/28/18 10:11 Santyl - TP 10/30/18 12:34 1 applic DAILY [facility] Administration Protocol Docusate Sodium 100 mg 10/17/18 16:19 10/22/18 11:09 Colace Liquid - PO 100 mg DAILY PRN Administration CONSTIPATION Heparin Sodium (Porcine) 5,000 unit 10/17/18 22:00 10/28/18 22:42 Heparin - SQ 5,000 unit BID [facility] Administration Ferric Carboxymaltose 750 mg/ 265 mls @ 530 mls/hr 10/28/18 13:45 Sodium Chloride IVPB 10/28/18 14:14 ONCE ONE Loratadine 10 mg 10/18/18 10:00 10/28/18 10:09 Claritin - PO 10 mg DAILY [facility] Administration Mirtazapine 7.5 mg 10/17/18 22:00 10/28/18 22:38 Remeron - PO 7.5 mg HS [facility] Administration Mupirocin 1 applic 10/27/18 22:00 10/28/18 22:40 Bactroban 2% Ointment - TP 1 applic BID [facility] Administration Nystatin 1 applic 10/22/18 22:00 10/28/18 22:42 Mycostatin Ointment - TP 1 applic BID [facility] Administration Polyethylene Glycol 17 gm 10/20/18 12:30 10/28/18 22:41 Miralax (For Daily Use) - GT Not Given BID [facility] Pregabalin 100 mg/ Pregabalin 150 mg 10/21/18 15:00 10/29/18 07:18 50 mg PO 150 mg TID [facility] Administration Senna 8.8 mg 10/17/18 22:00 10/28/18 22:42 Senna Oral Solution - PO 8.8 mg HS [facility] Administration Sertraline HCl 100 mg 10/18/18 10:00 10/28/18 10:09 Zoloft - PO 100 mg DAILY [facility] Administration Ursodiol 300 mg 10/17/18 22:00 10/28/18 22:38 Actigal - PO 300 mg BID [facility] Administration #MANNY #Hyperkalemia in setting of MANNY (improved) #Sepsis r/o PNA vs. UTI #Multiple sclerosis #Hypothyroidism #Hx of SIADH #hypokalemia #anemia Plan - monitor renal function - bun rising and hg is dropping, check stool for occult blood - replace potassium - sodium stable - feeds can also be causing an increase in bun - discussed with medical team
[2018-10-29] MEDS: COLLAGENASE CLOSTRIDIUM HIST. 30 GRAMS TUBE TP SCH (15:46)
[2018-10-29] MEDS: MUPIROCIN 2% TOPICAL OINTMENT 22 GM TUBE TP SCH ×2 (15:48→21:13)
[2018-10-29] MEDS: ACETAMINOPHEN 325 MG TABLET (FP) PO PRN (16:05)
[2018-10-29] MEDS: MIRTAZAPINE 15 MG TABLET (FP) PO SCH (22:34)
[2018-10-29] MEDS: SENNOSIDES 8.8 MG/5 ML BULK BOTTLE PO SCH (22:34)
[2018-10-30] MEDS: ACETAMINOPHEN 325 MG TABLET (FP) PO PRN ×3 (01:09→23:50)
[2018-10-30] MEDS ORDERED: PREGABALIN 50 MG CAPSULE ONE ×3 (05:35→21:19)
[2018-10-30] MEDS ORDERED: PREGABALIN 100 MG CAPSULE ONE ×3 (05:35→21:19)
[2018-10-30] MEDS: PREGABALIN 100 MG, PREGABALIN 50 MG PO SCH ×3 (05:51→21:33)
[2018-10-30] MEDS: MUPIROCIN 2% TOPICAL OINTMENT 22 GM TUBE TP SCH ×3 (07:15→23:51)
[2018-10-30] MEDS: COLLAGENASE CLOSTRIDIUM HIST. 30 GRAMS TUBE TP SCH (07:15)
[2018-10-30] MEDS: AMINO ACIDS/PROTEIN HYDROLYS 30 ML LIQUID.PKT PO SCH ×2 (08:37→16:33)
[2018-10-30 08:56] LABS: HEMATOCRIT 21.6 % (32.4-45.2); HEMOGLOBIN 7.2 GM/dL (10.7-15.3); MCH 32.6 pg (25.7-33.7); MCHC 33.2 g/dl (32.0-36.0); MEAN CELL VOLUME 98.2 fl (80-96); MEAN PLT VOLUME 9.1 fl (7.5-11.1); PLATELET COUNT 218 K/MM3 (134-434); RDW 16.6 % (11.6-15.6); WHITE BLOOD COUNT 8.2 K/mm3 (4.0-10.0)
[2018-10-30 09:29] LABS: ALBUMIN 1.6 g/dl (3.4-5.0); BILIRUBIN,TOTAL 0.2 mg/dL (0.2-1); BLOOD UREA NITROGEN 35.9 mg/dL (7-18); CALCIUM 8.3 mg/dL (8.5-10.1); CREATININE 0.6 mg/dL (0.55-1.3); POTASSIUM 4.1 mmol/L (3.5-5.1); TOT PROT 7.2 g/dl (6.4-8.2)
[2018-10-30] MEDS ORDERED: ALBUTEROL SO4 0.083% IH SOL 2.5 MG/3 ML VIAL.NEB. NEB PRN (10:40)
--- NOTE | 2018-10-30 10:40 | PN ---
Progress Note, Physician History of Present Illness: PULMONARY AWAKE,ALERT ON TRACH COLLAR TOLERATING WELL - Current Medication List Current Medications: Active Medications Acetaminophen (Tylenol -) 650 mg PO Q6H PRN PRN Reason: FEVER Last Admin: 10/30/18 01:09 Dose: 650 mg Amino Acids (Prosource No Carb Liquid Pkt) 30 ml PO BID@0800,1730 [facility] Last Admin: 10/30/18 08:37 Dose: 30 ml Clonazepam (Klonopin -) 0.5 mg PO BID [facility] Last Admin: 10/29/18 21:13 Dose: 0.5 mg Collagenase (Santyl -) 1 applic TP DAILY [facility]; Protocol Stop: 10/30/18 12:34 Last Admin: 10/29/18 15:46 Dose: 1 applic Docusate Sodium (Colace Liquid -) 100 mg PO DAILY PRN PRN Reason: CONSTIPATION Last Admin: 10/22/18 11:09 Dose: 100 mg Heparin Sodium (Porcine) (Heparin -) 5,000 unit SQ BID [facility] Last Admin: 10/29/18 21:13 Dose: 5,000 unit Ferric Carboxymaltose 750 mg/ (Sodium Chloride) 265 mls @ 530 mls/hr IVPB ONCE ONE Stop: 10/28/18 14:14 Loratadine (Claritin -) 10 mg PO DAILY [facility] Last Admin: 10/29/18 10:59 Dose: 10 mg Mirtazapine (Remeron -) 7.5 mg PO HS [facility] Last Admin: 10/29/18 22:34 Dose: 7.5 mg Mupirocin (Bactroban 2% Ointment -) 1 applic TP BID [facility] Last Admin: 10/29/18 21:13 Dose: 1 applic Nystatin (Mycostatin Ointment -) 1 applic TP BID [facility] Last Admin: 10/29/18 21:14 Dose: 1 applic Polyethylene Glycol (Miralax (For Daily Use) -) 17 gm GT BID [facility] Last Admin: 10/29/18 21:14 Dose: Not Given Pregabalin 100 mg/ Pregabalin (50 mg) 150 mg PO TID [facility] Last Admin: 10/30/18 05:51 Dose: 150 mg Senna (Senna Oral Solution -) 8.8 mg PO HS [facility] Last Admin: 10/29/18 22:34 Dose: 8.8 mg Sertraline HCl (Zoloft -) 100 mg PO DAILY [facility] Last Admin: 10/29/18 11:01 Dose: Not Given Ursodiol (Actigal -) 300 mg PO BID [facility] Last Admin: 10/29/18 21:13 Dose: 300 mg - Objective Vital Signs: Vital Signs Temperature 97 F L 10/30/18 02:00 Pulse Rate 72 10/30/18 04:27 Respiratory Rate 14 10/30/18 06:10 Blood Pressure 107/56 L 10/30/18 04:27 O2 Sat by Pulse Oximetry (%) 100 10/30/18 08:53 Constitutional: Yes: Well Nourished, Calm Eyes: Yes: WNL HENT: Yes: WNL Neck: Yes: Supple (TRACH) Cardiovascular: Yes: Regular Rate and Rhythm, S1, S2 Respiratory: Yes: Rhonchi (FEW SCATTERED RHONCHI) Gastrointestinal: Yes: Normal Bowel Sounds, Hemorrhoids Extremities: Yes: WNL Edema: Yes Edema: LLE: Trace, RLE: Trace Labs: CBC, BMP 10/30/18 08:30 10/30/18 08:30 INR, PTT INR 1.13 (0.83-1.09) H 10/12/18 11:30 Problem List - Problems (1) Hypotension Code(s): I95.9 - HYPOTENSION, UNSPECIFIED (2) Pneumonia Code(s): J18.9 - PNEUMONIA, UNSPECIFIED ORGANISM Qualifiers: Pneumonia type: due to unspecified organism Laterality: right Lung location: lower lobe of lung Qualified Code(s): J18.1 - Lobar pneumonia, unspecified organism (3) Septic shock Code(s): A41.9 - SEPSIS, UNSPECIFIED ORGANISM; R65.21 - SEVERE SEPSIS WITH SEPTIC SHOCK (4) Acute on chronic respiratory failure with hypoxia and hypercapnia Code(s): J96.21 - ACUTE AND CHRONIC RESPIRATORY FAILURE WITH HYPOXIA; J96.22 - ACUTE AND CHRONIC RESPIRATORY FAILURE WITH HYPERCAPNIA (5) Anemia Code(s): D64.9 - ANEMIA, UNSPECIFIED (6) Chronic hypercapnic respiratory failure Code(s): J96.12 - CHRONIC RESPIRATORY FAILURE WITH HYPERCAPNIA (7) Edema Code(s): R60.9 - EDEMA, UNSPECIFIED (8) Functional quadriplegia Code(s): R53.2 - FUNCTIONAL QUADRIPLEGIA (9) Functional 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 (10) Hx of multiple sclerosis Code(s): Z86.69 - PERSONAL HISTORY OF DIS OF THE NERVOUS SYS AND SENSE ORGANS (11) Neurogenic bladder Code(s): N31.9 - NEUROMUSCULAR DYSFUNCTION OF BLADDER, UNSPECIFIED (12) Sepsis Code(s): A41.9 - SEPSIS, UNSPECIFIED ORGANISM Qualifiers: Sepsis type: sepsis due to unspecified organism Qualified Code(s): A41.9 - Sepsis, unspecified organism Assessment/Plan ASSESSMENT/PLAN: Resolved Septic Shock secondary to urinary tract source Pneumonia improved Acute Hypoxic Hypercapneic Respiratory Failure improved Anemia Hypothyroidism Multiple Sclerosis Trigeminal Neuralgia Gallstones Anemia Vent support ac mode at night Trach collar as tolerated VTE prophylaxis Enteral feeds Anemia consider heme evaluation monitor h+h normal transfusion threshold DR ELDER
[2018-10-30] MEDS: URSODIOL 300 MG CAPSULE PO SCH ×2 (10:51→21:33)
[2018-10-30] MEDS: SERTRALINE HCL 50 MG TABLET (FP) PO SCH (10:51)
[2018-10-30] MEDS: LORATADINE 10 MG TABLET PO SCH (10:52)
[2018-10-30] MEDS: HEPARIN NA (PORCINE) 5,000 UNITS/ML 1ML VIAL SQ SCH ×2 (10:52→21:32)
[2018-10-30] MEDS: clonazePAM 0.5 MG TABLET PO SCH ×2 (10:52→21:32)
[2018-10-30] MEDS: NYSTATIN 100000 UNIT/GM TOPICAL OINTMENT 15 GM TUBE TP SCH ×2 (11:00→21:34)
--- NOTE | 2018-10-30 13:50 | PN ---
Progress Note, Physician Chief Complaint: Pneumonia Sepsis UTI acute on chronic respiratory failure History of Present Illness: Previous notes and events reviewed sleeping but arouseable to verbal and tactile stimuli NAD connected to oxygen via trach collar denies complaints of chest pain Hg 7.2 spoke with patient mother and patient about blood transfusion 2/2 to low Hg again today, currently 7.2, explained patient will be premedicated prior to transfusion, patient states she will think about possible transfusion and will talk to her sister after transfusion reaction BC show one prelim positive result but repeat BC afterwards neg - Current Medication List Current Medications: Active Medications Acetaminophen (Tylenol -) 650 mg PO Q6H PRN PRN Reason: FEVER Last Admin: 10/30/18 01:09 Dose: 650 mg Albuterol Sulfate (Ventolin 0.083% Nebulizer Soln -) 1 amp NEB Q4H PRN PRN Reason: SHORT OF BREATH/WHEEZING Amino Acids (Prosource No Carb Liquid Pkt) 30 ml PO BID@0800,1730 [facility] Last Admin: 10/30/18 08:37 Dose: 30 ml Clonazepam (Klonopin -) 0.5 mg PO BID [facility] Last Admin: 10/30/18 10:52 Dose: 0.5 mg Docusate Sodium (Colace Liquid -) 100 mg PO DAILY PRN PRN Reason: CONSTIPATION Last Admin: 10/22/18 11:09 Dose: 100 mg Heparin Sodium (Porcine) (Heparin -) 5,000 unit SQ BID [facility] Last Admin: 10/30/18 10:52 Dose: 5,000 unit Ferric Carboxymaltose 750 mg/ (Sodium Chloride) 265 mls @ 530 mls/hr IVPB ONCE ONE Stop: 10/28/18 14:14 Loratadine (Claritin -) 10 mg PO DAILY [facility] Last Admin: 10/30/18 10:52 Dose: 10 mg Mirtazapine (Remeron -) 7.5 mg PO HS [facility] Last Admin: 10/29/18 22:34 Dose: 7.5 mg Mupirocin (Bactroban 2% Ointment -) 1 applic TP BID [facility] Last Admin: 10/29/18 21:13 Dose: 1 applic Nystatin (Mycostatin Ointment -) 1 applic TP BID [facility] Last Admin: 10/29/18 21:14 Dose: 1 applic Polyethylene Glycol (Miralax (For Daily Use) -) 17 gm GT BID [facility] Last Admin: 10/29/18 21:14 Dose: Not Given Pregabalin 100 mg/ Pregabalin (50 mg) 150 mg PO TID [facility] Last Admin: 10/30/18 05:51 Dose: 150 mg Senna (Senna Oral Solution -) 8.8 mg PO HS [facility] Last Admin: 10/29/18 22:34 Dose: 8.8 mg Sertraline HCl (Zoloft -) 100 mg PO DAILY [facility] Last Admin: 10/30/18 10:51 Dose: 100 mg Ursodiol (Actigal -) 300 mg PO BID [facility] Last Admin: 10/30/18 10:51 Dose: 300 mg - Objective Vital Signs: Vital Signs Temperature 98.1 F 10/30/18 10:44 Pulse Rate 99 H 10/30/18 10:44 Respiratory Rate 20 10/30/18 10:44 Blood Pressure 140/80 10/30/18 10:44 O2 Sat by Pulse Oximetry (%) 100 10/30/18 08:53 Constitutional: Yes: No Distress, Calm Eyes: Yes: Conjunctiva Clear HENT: Yes: Atraumatic Neck: Yes: Other (trach) Cardiovascular: Yes: Regular Rate and Rhythm Respiratory: Yes: Regular, Rhonchi, Other (O2 via trach collar) Gastrointestinal: Yes: Normal Bowel Sounds, Soft, Other (Gtube) Genitourinary: Yes: Raza Present Musculoskeletal: Yes: Muscle Weakness Extremities: Yes: WNL Edema: No Wound/Incision: Yes: Dressing Dry and Intact Neurological: Yes: Alert, Pre-Existing Deficit Psychiatric: Yes: Alert Labs: CBC, BMP 10/30/18 08:30 10/30/18 08:30 INR, PTT INR 1.13 (0.83-1.09) H 10/12/18 11:30 Microbiology 10/29/18 10:30 Blood - Peripheral Venous Blood Culture - Preliminary NO GROWTH OBTAINED AFTER 24 HOURS, INCUBATION TO CONTINUE FOR 4 DAYS. 10/29/18 10:25 Blood - Peripheral Venous Blood Culture - Preliminary NO GROWTH OBTAINED AFTER 24 HOURS, INCUBATION TO CONTINUE FOR 4 DAYS. 10/28/18 00:05 Urine - Urine Raza Urine Culture - Final Yeast Like Organism 10/27/18 19:30 Blood - Peripheral Venous Blood Culture - Preliminary Staphylococcus Coagulase Neg 10/27/18 20:45 Blood - Peripheral Venous Blood Culture - Preliminary NO GROWTH OBTAINED AFTER 48 HOURS, INCUBATION TO CONTINUE FOR 3 DAYS. 10/19/18 19:00 Blood - Peripheral Venous Blood Culture - Final NO GROWTH AFTER 5 DAYS INCUBATION 10/19/18 19:00 Blood - Peripheral Venous Blood Culture - Final NO GROWTH AFTER 5 DAYS INCUBATION 10/12/18 11:30 Blood - Peripheral Venous Blood Culture - Final NO GROWTH AFTER 5 DAYS INCUBATION 10/12/18 17:20 Urine - Urine - Catheterized Urine Culture - Final Kluyvera Ascorbata Klebsiella Pneumoniae 10/13/18 01:50 Sputum - Endotrachea Suction/Ventilator Gram Stain - Final 10/13/18 01:50 Sputum - Endotrachea Suction/Ventilator Sputum Culture - Final Pseudomonas Aeruginosa 10/12/18 11:30 Blood - Peripheral Venous Blood Culture - Final Escherichia Coli 10/12/18 17:20 Urine For Antigen Detection Legionella Antigen - Final 10/12/18 17:20 Urine For Antigen Detection Streptococcus pneumoniae Antigen (M - Final 10/12/18 11:30 Urine - Urine - Catheterized Urine Culture - Final Contaminated: Please Repeat Problem List - Problems (1) Acute renal insufficiency Assessment/Plan: -BUN/Cr 35.9/0.6 -Renal on board -Renal US -US shows right kidney with mild to moderate hydronephrosis and without gross evidence of stones Code(s): N28.9 - DISORDER OF KIDNEY AND URETER, UNSPECIFIED (2) Pneumonia Assessment/Plan: -ID on board -no leukocytosis -afebrile -off antibiotics -CXR shows RLL zone airspace opacities, atelectasis changes without blunting of the right costophrenic angles -Pulm on board -keep SpO2 >90% -BC and Urine Legionella neg Code(s): J18.9 - PNEUMONIA, UNSPECIFIED ORGANISM Qualifiers: Pneumonia type: due to unspecified organism Laterality: right Lung location: lower lobe of lung Qualified Code(s): J18.1 - Lobar pneumonia, unspecified organism (3) Acute on chronic respiratory failure with hypoxia and hypercapnia Assessment/Plan: -Pulm on board -mechanically ventilated -keep SpO2 >90% -CXR shows RLL zone airspace opacities, atelectasis changes without blunting of the right costophrenic angles -Dr Tompkins change trach on 8/22/19 Code(s): J96.21 - ACUTE AND CHRONIC RESPIRATORY FAILURE WITH HYPOXIA; J96.22 - ACUTE AND CHRONIC RESPIRATORY FAILURE WITH HYPERCAPNIA (4) Anemia Assessment/Plan: -Hg 7.2 -monitor Hg daily -transfuse for Hg <8.0 -Stool OB neg Code(s): D64.9 - ANEMIA, UNSPECIFIED (5) Functional quadriplegia Assessment/Plan: -PT -fall precautions Code(s): R53.2 - FUNCTIONAL QUADRIPLEGIA (6) Hx of multiple sclerosis Assessment/Plan: -fall precaution -PT -turn q2h and offloading Code(s): Z86.69 - PERSONAL HISTORY OF DIS OF THE NERVOUS SYS AND SENSE ORGANS (7) Hypothyroid Assessment/Plan: -Levothyroxine Code(s): E03.9 - HYPOTHYROIDISM, UNSPECIFIED (8) Sepsis Assessment/Plan: -ID on board -no leukocytosis -afebrile -off antibiotics -CXR shows RLL zone airspace opacities, atelectasis changes without blunting of the right costophrenic angles -Pulm on board -keep SpO2 >90% -BC and Urine Legionella neg -UA 3+ leuks, 3+ blood, 3+ protein -UC positive -Sputum culture positive Code(s): A41.9 - SEPSIS, UNSPECIFIED ORGANISM Qualifiers: Sepsis type: sepsis due to unspecified organism Qualified Code(s): A41.9 - Sepsis, unspecified organism (9) Hypotension Assessment/Plan: -resolved -monitor BP Code(s): I95.9 - HYPOTENSION, UNSPECIFIED (10) Gallstones Assessment/Plan: -US shows hepatomegaly, gallstones without wall thickening, trace of pericholecystic free fluid, dilated CBD 9mm -Surgical and GI consult -Actigal Code(s): K80.20 - CALCULUS OF GALLBLADDER W/O CHOLECYSTITIS W/O OBSTRUCTION (11) Altered mental status Assessment/Plan: -resolving-a&ox3 on exam -2/2 sepsis Code(s): R41.82 - ALTERED MENTAL STATUS, UNSPECIFIED Assessment/Plan see problem list dvt ppx
[2018-10-30] MEDS: POLYETHYLENE GLYCOL 3350 119 GM BTL GT SCH ×2 (14:24→21:34)
--- NOTE | 2018-10-30 15:06 | PN ---
Progress Note, Physician History of Present Illness: Pt seen and examined at bedside. She appears comfortable. - Current Medication List Current Medications: Active Medications Acetaminophen (Tylenol -) 650 mg PO Q6H PRN PRN Reason: FEVER Last Admin: 10/30/18 14:43 Dose: 650 mg Albuterol Sulfate (Ventolin 0.083% Nebulizer Soln -) 1 amp NEB Q4H PRN PRN Reason: SHORT OF BREATH/WHEEZING Amino Acids (Prosource No Carb Liquid Pkt) 30 ml PO BID@0800,1730 [facility] Last Admin: 10/30/18 08:37 Dose: 30 ml Clonazepam (Klonopin -) 0.5 mg PO BID [facility] Last Admin: 10/30/18 10:52 Dose: 0.5 mg Docusate Sodium (Colace Liquid -) 100 mg PO DAILY PRN PRN Reason: CONSTIPATION Last Admin: 10/22/18 11:09 Dose: 100 mg Heparin Sodium (Porcine) (Heparin -) 5,000 unit SQ BID [facility] Last Admin: 10/30/18 10:52 Dose: 5,000 unit Loratadine (Claritin -) 10 mg PO DAILY [facility] Last Admin: 10/30/18 10:52 Dose: 10 mg Mirtazapine (Remeron -) 7.5 mg PO HS [facility] Last Admin: 10/29/18 22:34 Dose: 7.5 mg Mupirocin (Bactroban 2% Ointment -) 1 applic TP BID [facility] Last Admin: 10/29/18 21:13 Dose: 1 applic Nystatin (Mycostatin Ointment -) 1 applic TP BID [facility] Last Admin: 10/29/18 21:14 Dose: 1 applic Polyethylene Glycol (Miralax (For Daily Use) -) 17 gm GT BID [facility] Last Admin: 10/30/18 14:24 Dose: Not Given Pregabalin 100 mg/ Pregabalin (50 mg) 150 mg PO TID [facility] Last Admin: 10/30/18 14:30 Dose: 150 mg Senna (Senna Oral Solution -) 8.8 mg PO HS [facility] Last Admin: 10/29/18 22:34 Dose: 8.8 mg Sertraline HCl (Zoloft -) 100 mg PO DAILY [facility] Last Admin: 10/30/18 10:51 Dose: 100 mg Ursodiol (Actigal -) 300 mg PO BID [facility] Last Admin: 10/30/18 10:51 Dose: 300 mg - Objective Vital Signs: Vital Signs Temperature 98.1 F 10/30/18 10:44 Pulse Rate 99 H 10/30/18 10:44 Respiratory Rate 20 10/30/18 10:44 Blood Pressure 140/80 10/30/18 10:44 O2 Sat by Pulse Oximetry (%) 100 10/30/18 08:53 Constitutional: Yes: Calm Eyes: Yes: Conjunctiva Clear HENT: Yes: Atraumatic Neck: Yes: Other (trache) Cardiovascular: Yes: S1, S2 Respiratory: Yes: Other (trache) Gastrointestinal: Yes: Normal Bowel Sounds, Soft Genitourinary: Yes: Incontinence Musculoskeletal: Yes: Muscle Weakness Edema: No Neurological: Yes: Pre-Existing Deficit Labs: CBC, BMP 10/30/18 08:30 10/30/18 08:30 INR, PTT INR 1.13 (0.83-1.09) H 10/12/18 11:30 Assessment/Plan Current Medications Generic Name Dose Route Start Last Admin Trade Name Miguel Ángelq PRN Reason Stop Dose Admin Acetaminophen 650 mg 10/17/18 16:19 10/30/18 14:43 Tylenol - PO 650 mg Q6H PRN Administration FEVER Albuterol Sulfate 1 amp 10/30/18 10:40 Ventolin 0.083% Nebulizer Soln - NEB Q4H PRN SHORT OF BREATH/WHEEZING Amino Acids 30 ml 10/18/18 17:30 10/30/18 08:37 Prosource No Carb Liquid Pkt PO 30 ml BID@0800,1730 [facility] Administration Clonazepam 0.5 mg 10/17/18 22:00 10/30/18 10:52 Klonopin - PO 0.5 mg BID [facility] Administration Docusate Sodium 100 mg 10/17/18 16:19 10/22/18 11:09 Colace Liquid - PO 100 mg DAILY PRN Administration CONSTIPATION Heparin Sodium (Porcine) 5,000 unit 10/17/18 22:00 10/30/18 10:52 Heparin - SQ 5,000 unit BID [facility] Administration Loratadine 10 mg 10/18/18 10:00 10/30/18 10:52 Claritin - PO 10 mg DAILY [facility] Administration Mirtazapine 7.5 mg 10/17/18 22:00 10/29/18 22:34 Remeron - PO 7.5 mg HS [facility] Administration Mupirocin 1 applic 10/27/18 22:00 10/29/18 21:13 Bactroban 2% Ointment - TP 1 applic BID [facility] Administration Nystatin 1 applic 10/22/18 22:00 10/29/18 21:14 Mycostatin Ointment - TP 1 applic BID [facility] Administration Polyethylene Glycol 17 gm 10/20/18 12:30 10/30/18 14:24 Miralax (For Daily Use) - GT Not Given BID [facility] Pregabalin 100 mg/ Pregabalin 150 mg 10/21/18 15:00 10/30/18 14:30 50 mg PO 150 mg TID [facility] Administration Senna 8.8 mg 10/17/18 22:00 10/29/18 22:34 Senna Oral Solution - PO 8.8 mg HS [facility] Administration Sertraline HCl 100 mg 10/18/18 10:00 10/30/18 10:51 Zoloft - PO 100 mg DAILY [facility] Administration Ursodiol 300 mg 10/17/18 22:00 10/30/18 10:51 Actigal - PO 300 mg BID [facility] Administration #MANNY #Hyperkalemia in setting of MANNY (improved) #Sepsis r/o PNA vs. UTI #Multiple sclerosis #Hypothyroidism #Hx of SIADH #hypokalemia #anemia Plan - potassium is improved - monitor hg - discussed with family - monitor sodium - monitor bun
[2018-10-30] MEDS ORDERED: PT OWN MED DRAWER 7, Y5N ONE (16:25)
--- NOTE | 2018-10-30 17:15 | PN ---
Progress Note (short form) - Note Progress Note: Patient known from prior admission. Advanced MS, with motor paresis all limbs, bed-bound, tracheostomy, admitted with septic shock (permanently catheterized - frequent urosepsis). Chronic anemia, attributed to chronic disease (as above, also decubitus ulcers) , with recent history of transfusion, aborted due to reaction. Has also recently been administered IV iron in attempt to raise HB, without effect. Present consultation regarding management of anemia. Noted that baseline Hb is circa 8-9. Patient reports feeling comfortable at this level. Denies excessive fatigue, or dyspnea. Wants desperately to go home. Inpatient Meds reviewed. Current Medications Acetaminophen (Tylenol -) 650 mg PO Q6H PRN PRN Reason: FEVER Last Admin: 10/30/18 14:43 Dose: 650 mg Albuterol Sulfate (Ventolin 0.083% Nebulizer Soln -) 1 amp NEB Q4H PRN PRN Reason: SHORT OF BREATH/WHEEZING Amino Acids (Prosource No Carb Liquid Pkt) 30 ml PO BID@0800,1730 [facility] Last Admin: 10/30/18 16:33 Dose: 30 ml Clonazepam (Klonopin -) 0.5 mg PO BID [facility] Last Admin: 10/30/18 10:52 Dose: 0.5 mg Docusate Sodium (Colace Liquid -) 100 mg PO DAILY PRN PRN Reason: CONSTIPATION Last Admin: 10/22/18 11:09 Dose: 100 mg Heparin Sodium (Porcine) (Heparin -) 5,000 unit SQ BID [facility] Last Admin: 10/30/18 10:52 Dose: 5,000 unit Loratadine (Claritin -) 10 mg PO DAILY [facility] Last Admin: 10/30/18 10:52 Dose: 10 mg Mirtazapine (Remeron -) 7.5 mg PO HS [facility] Last Admin: 10/29/18 22:34 Dose: 7.5 mg Mupirocin (Bactroban 2% Ointment -) 1 applic TP BID [facility] Last Admin: 10/30/18 16:19 Dose: 1 applic Nystatin (Mycostatin Ointment -) 1 applic TP BID [facility] Last Admin: 10/29/18 21:14 Dose: 1 applic Polyethylene Glycol (Miralax (For Daily Use) -) 17 gm GT BID [facility] Last Admin: 10/30/18 14:24 Dose: Not Given Pregabalin 100 mg/ Pregabalin (50 mg) 150 mg PO TID [facility] Last Admin: 10/30/18 14:30 Dose: 150 mg Senna (Senna Oral Solution -) 8.8 mg PO HS [facility] Last Admin: 10/29/18 22:34 Dose: 8.8 mg Sertraline HCl (Zoloft -) 100 mg PO DAILY [facility] Last Admin: 10/30/18 10:51 Dose: 100 mg Ursodiol (Actigal -) 300 mg PO BID [facility] Last Admin: 10/30/18 10:51 Dose: 300 mg On Examination: Last Vital Signs Temp Pulse Resp BP Pulse Ox 99.3 F 101 H 20 145/89 100 10/30/18 14:55 10/30/18 14:55 10/30/18 14:55 10/30/18 14:55 10/30/18 08:53 General: In no acute distress, lying comfortably in bed, tracheostomy Extremities: No icterus. Mild bilateral pedal edema. No palpable lymphadenopathy. Chest: breathing comfortably Abdomen: Non-distended, non-tender, no palpable organomegaly. Neuro: Alert, oriented, non-focal. Labs: CBC, BMP 10/30/18 08:30 10/30/18 08:30 Assessment. Patient admitted with severe sepsis, now improved, and appears to be at baseline. Chronic anemia, with baseline Hb circa 8-9, likely attributable to chronic disease. (Normal renal function, other cell-lines WNL, normal hematinics, elevated ferritin.) MCV higher than expected - would check folate level next blood draw. Hb circa 7.5 last few days, but asymptomatic. Stool occult blood negative. Would hold off on further transfusion - in absence of symptoms, see no indication for transfusion, or other measures to raise Hb. Avoid further iron supplementation, (ferritin >800.) Observation. Consider discharge home, if no other pending issues. Please call with questions/concern - [phone].
[2018-10-30] MEDS: MIRTAZAPINE 15 MG TABLET (FP) PO SCH (21:33)
[2018-10-30] MEDS: SENNOSIDES 8.8 MG/5 ML BULK BOTTLE PO SCH (21:33)
[2018-10-31] MEDS ORDERED: PREGABALIN 100 MG CAPSULE ONE ×3 (05:23→20:59)
[2018-10-31] MEDS ORDERED: PREGABALIN 50 MG CAPSULE ONE ×3 (05:23→20:59)
[2018-10-31] MEDS: PREGABALIN 100 MG, PREGABALIN 50 MG PO SCH ×3 (05:25→21:32)
[2018-10-31 07:52] LABS: HEMATOCRIT 21.9 % (32.4-45.2); HEMOGLOBIN 7.1 GM/dL (10.7-15.3); MCH 31.9 pg (25.7-33.7); MCHC 32.3 g/dl (32.0-36.0); MEAN CELL VOLUME 98.6 fl (80-96); MEAN PLT VOLUME 9.4 fl (7.5-11.1); PLATELET COUNT 205 K/MM3 (134-434); RBC 2.22 M/mm3 (3.60-5.2); RDW 17.2 % (11.6-15.6); WHITE BLOOD COUNT 8.9 K/mm3 (4.0-10.0)
[2018-10-31 08:24] LABS: ALBUMIN 1.6 g/dl (3.4-5.0); BILIRUBIN,TOTAL 0.2 mg/dL (0.2-1); CALCIUM 8.3 mg/dL (8.5-10.1); CREATININE 0.6 mg/dL (0.55-1.3); POTASSIUM 4.4 mmol/L (3.5-5.1)
[2018-10-31] MEDS ORDERED: PT OWN MED DRAWER 7, Y5N ONE ×2 (10:35→21:00)
[2018-10-31] MEDS: LORATADINE 10 MG TABLET PO SCH (10:41)
[2018-10-31] MEDS: AMINO ACIDS/PROTEIN HYDROLYS 30 ML LIQUID.PKT PO SCH ×2 (10:41→18:37)
[2018-10-31] MEDS: URSODIOL 300 MG CAPSULE PO SCH ×2 (10:41→21:36)
[2018-10-31] MEDS: SERTRALINE HCL 50 MG TABLET (FP) PO SCH (10:41)
[2018-10-31] MEDS: clonazePAM 0.5 MG TABLET PO SCH ×2 (10:41→21:31)
[2018-10-31] MEDS: HEPARIN NA (PORCINE) 5,000 UNITS/ML 1ML VIAL SQ SCH (10:41)
--- NOTE | 2018-10-31 11:26 | PN ---
Progress Note, Physician History of Present Illness: PULMONARY AWAKE NOT FEELING WELL TODAY,MORE CONGESTED - Current Medication List Current Medications: Active Medications Acetaminophen (Tylenol -) 650 mg PO Q6H PRN PRN Reason: FEVER Last Admin: 10/30/18 23:50 Dose: 650 mg Albuterol Sulfate (Ventolin 0.083% Nebulizer Soln -) 1 amp NEB Q4H PRN PRN Reason: SHORT OF BREATH/WHEEZING Amino Acids (Prosource No Carb Liquid Pkt) 30 ml PO BID@0800,1730 [facility] Last Admin: 10/31/18 10:41 Dose: 30 ml Clonazepam (Klonopin -) 0.5 mg PO BID [facility] Last Admin: 10/31/18 10:41 Dose: 0.5 mg Docusate Sodium (Colace Liquid -) 100 mg PO DAILY PRN PRN Reason: CONSTIPATION Last Admin: 10/22/18 11:09 Dose: 100 mg Heparin Sodium (Porcine) (Heparin -) 5,000 unit SQ BID [facility] Last Admin: 10/31/18 10:41 Dose: 5,000 unit Loratadine (Claritin -) 10 mg PO DAILY [facility] Last Admin: 10/31/18 10:41 Dose: 10 mg Mirtazapine (Remeron -) 7.5 mg PO HS [facility] Last Admin: 10/30/18 21:33 Dose: 7.5 mg Mupirocin (Bactroban 2% Ointment -) 1 applic TP BID [facility] Last Admin: 10/30/18 23:51 Dose: Not Given Nystatin (Mycostatin Ointment -) 1 applic TP BID [facility] Last Admin: 10/30/18 21:34 Dose: 1 applic Polyethylene Glycol (Miralax (For Daily Use) -) 17 gm GT BID [facility] Last Admin: 10/30/18 21:34 Dose: Not Given Pregabalin 100 mg/ Pregabalin (50 mg) 150 mg PO TID [facility] Last Admin: 10/31/18 05:25 Dose: 150 mg Senna (Senna Oral Solution -) 8.8 mg PO HS [facility] Last Admin: 10/30/18 21:33 Dose: 8.8 mg Sertraline HCl (Zoloft -) 100 mg PO DAILY [facility] Last Admin: 10/31/18 10:41 Dose: 100 mg Ursodiol (Actigal -) 300 mg PO BID [facility] Last Admin: 10/31/18 10:41 Dose: 300 mg - Objective Vital Signs: Vital Signs Temperature 98.9 F 10/31/18 10:00 Pulse Rate 114 H 10/31/18 10:00 Respiratory Rate 16 10/31/18 11:13 Blood Pressure 151/68 10/31/18 10:00 O2 Sat by Pulse Oximetry (%) 96 10/31/18 11:12 Constitutional: Yes: Well Nourished, Calm Eyes: Yes: WNL HENT: Yes: WNL Neck: Yes: Supple (TRACH) Cardiovascular: Yes: Tachycardia, S1, S2 Respiratory: Yes: Rhonchi (SCATTERED LUCAS RHONCHI) Gastrointestinal: Yes: Normal Bowel Sounds, Soft Extremities: Yes: WNL Edema: Yes Edema: LLE: Trace, RLE: Trace Labs: CBC, BMP 10/31/18 07:15 10/31/18 07:15 INR, PTT INR 1.13 (0.83-1.09) H 10/12/18 11:30 Problem List - Problems (1) Hypotension Code(s): I95.9 - HYPOTENSION, UNSPECIFIED (2) Pneumonia Code(s): J18.9 - PNEUMONIA, UNSPECIFIED ORGANISM Qualifiers: Pneumonia type: due to unspecified organism Laterality: right Lung location: lower lobe of lung Qualified Code(s): J18.1 - Lobar pneumonia, unspecified organism (3) Septic shock Code(s): A41.9 - SEPSIS, UNSPECIFIED ORGANISM; R65.21 - SEVERE SEPSIS WITH SEPTIC SHOCK (4) Acute on chronic respiratory failure with hypoxia and hypercapnia Code(s): J96.21 - ACUTE AND CHRONIC RESPIRATORY FAILURE WITH HYPOXIA; J96.22 - ACUTE AND CHRONIC RESPIRATORY FAILURE WITH HYPERCAPNIA (5) Anemia Code(s): D64.9 - ANEMIA, UNSPECIFIED (6) Chronic hypercapnic respiratory failure Code(s): J96.12 - CHRONIC RESPIRATORY FAILURE WITH HYPERCAPNIA (7) Edema Code(s): R60.9 - EDEMA, UNSPECIFIED (8) Functional quadriplegia Code(s): R53.2 - FUNCTIONAL QUADRIPLEGIA (9) Functional 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 (10) Hx of multiple sclerosis Code(s): Z86.69 - PERSONAL HISTORY OF DIS OF THE NERVOUS SYS AND SENSE ORGANS (11) Neurogenic bladder Code(s): N31.9 - NEUROMUSCULAR DYSFUNCTION OF BLADDER, UNSPECIFIED (12) Sepsis Code(s): A41.9 - SEPSIS, UNSPECIFIED ORGANISM Qualifiers: Sepsis type: sepsis due to unspecified organism Qualified Code(s): A41.9 - Sepsis, unspecified organism Assessment/Plan ASSESSMENT/PLAN: Resolved Septic Shock secondary to urinary tract source Pneumonia improved Acute Hypoxic Hypercapneic Respiratory Failure improved Anemia Hypothyroidism Multiple Sclerosis Trigeminal Neuralgia Gallstones Anemia Vent support ac mode at night Trach collar as tolerated VTE prophylaxis Enteral feeds Anemia chest x-ray cultures monitor h+h DR ELDER
[2018-10-31] MEDS: POLYETHYLENE GLYCOL 3350 119 GM BTL GT SCH ×2 (12:36→21:32)
--- NOTE | 2018-10-31 14:41 | PN ---
Progress Note, Physician Chief Complaint: patient lethargic sleepy on vent - Current Medication List Current Medications: Active Medications Acetaminophen (Tylenol -) 650 mg PO Q6H PRN PRN Reason: FEVER Last Admin: 10/30/18 23:50 Dose: 650 mg Albuterol Sulfate (Ventolin 0.083% Nebulizer Soln -) 1 amp NEB Q4H PRN PRN Reason: SHORT OF BREATH/WHEEZING Amino Acids (Prosource No Carb Liquid Pkt) 30 ml PO BID@0800,1730 [facility] Last Admin: 10/31/18 10:41 Dose: 30 ml Clonazepam (Klonopin -) 0.5 mg PO HS [facility] Collagenase (Santyl -) 1 applic TP BID [facility]; Protocol Docusate Sodium (Colace Liquid -) 100 mg PO DAILY PRN PRN Reason: CONSTIPATION Last Admin: 10/22/18 11:09 Dose: 100 mg Heparin Sodium (Porcine) (Heparin -) 5,000 unit SQ BID [facility] Last Admin: 10/31/18 10:41 Dose: 5,000 unit Loratadine (Claritin -) 10 mg PO DAILY [facility] Last Admin: 10/31/18 10:41 Dose: 10 mg Mirtazapine (Remeron -) 7.5 mg PO HS [facility] Last Admin: 10/30/18 21:33 Dose: 7.5 mg Mupirocin (Bactroban 2% Ointment -) 1 applic TP BID [facility] Last Admin: 10/30/18 23:51 Dose: Not Given Nystatin (Mycostatin Ointment -) 1 applic TP BID [facility] Last Admin: 10/30/18 21:34 Dose: 1 applic Polyethylene Glycol (Miralax (For Daily Use) -) 17 gm GT BID [facility] Last Admin: 10/31/18 12:36 Dose: Not Given Pregabalin 100 mg/ Pregabalin (50 mg) 150 mg PO TID [facility] Last Admin: 10/31/18 05:25 Dose: 150 mg Senna (Senna Oral Solution -) 8.8 mg PO HS [facility] Last Admin: 10/30/18 21:33 Dose: 8.8 mg Sertraline HCl (Zoloft -) 100 mg PO DAILY [facility] Last Admin: 10/31/18 10:41 Dose: 100 mg Ursodiol (Actigal -) 300 mg PO BID [facility] Last Admin: 10/31/18 10:41 Dose: 300 mg - Objective Vital Signs: Vital Signs Temperature 98.9 F 10/31/18 10:00 Pulse Rate 114 H 10/31/18 10:00 Respiratory Rate 14 10/31/18 13:37 Blood Pressure 151/68 10/31/18 10:00 O2 Sat by Pulse Oximetry (%) 96 10/31/18 11:12 Constitutional: Yes: Calm Neck: Yes: Other (trach) Cardiovascular: Yes: Regular Rate and Rhythm, S1, S2 Respiratory: Yes: Mechanically Ventilated Gastrointestinal: Yes: Normal Bowel Sounds, Soft, Other ( g tube) Edema: No Neurological: Yes: Alert, Pre-Existing Deficit Labs: CBC, BMP 10/31/18 07:15 10/31/18 07:15 INR, PTT INR 1.13 (0.83-1.09) H 10/12/18 11:30 Problem List - Problems (1) Bacteremia due to Escherichia coli Assessment/Plan: completed course Microbiology 10/12/18 11:30 Blood - Peripheral Venous Blood Culture - Final Escherichia Coli Code(s): R78.81 - BACTEREMIA (2) Constipation Assessment/Plan: abdominal xray noted miralax enema Code(s): K59.00 - CONSTIPATION, UNSPECIFIED (3) Septic shock Assessment/Plan: resolved taper and stop steroids Code(s): A41.9 - SEPSIS, UNSPECIFIED ORGANISM; R65.21 - SEVERE SEPSIS WITH SEPTIC SHOCK (4) Decubital ulcer Assessment/Plan: appreciate wound care /plastic surgeon note management per plastic surgeon note Code(s): L89.90 - PRESSURE ULCER OF UNSPECIFIED SITE, UNSPECIFIED STAGE Qualifiers: Pressure injury location: unspecified location Pressure injury stage: unspecified pressure injury stage Qualified Code(s): L89.90 - Pressure ulcer of unspecified site, unspecified stage (5) Hx of multiple sclerosis Assessment/Plan: perera cath - chronic for neurogenic bladder g tube due dysphagia- FEN frequent turn and position dvt ppx Code(s): Z86.69 - PERSONAL HISTORY OF DIS OF THE NERVOUS SYS AND SENSE ORGANS (6) Hypernatremia Assessment/Plan: inc free water in tube feeds trend sodium level Code(s): E87.0 - HYPEROSMOLALITY AND HYPERNATREMIA (7) Anemia Assessment/Plan: seen by heme no more iron needed no need to tranfuse Code(s): D64.9 - ANEMIA, UNSPECIFIED (8) Sacral decubitus ulcer, stage IV Assessment/Plan: seen by plastic surgeon collagease Code(s): L89.154 - PRESSURE ULCER OF SACRAL REGION, STAGE 4 Assessment/Plan no klonopin in morning only at night plan to dc home in am if mentation is better
[2018-10-31] MEDS: MUPIROCIN 2% TOPICAL OINTMENT 22 GM TUBE TP SCH ×2 (15:39→23:12)
[2018-10-31] MEDS: COLLAGENASE CLOSTRIDIUM HIST. 30 GRAMS TUBE TP SCH ×2 (15:39→23:13)
[2018-10-31] MEDS: NYSTATIN 100000 UNIT/GM TOPICAL OINTMENT 15 GM TUBE TP SCH ×2 (15:39→23:13)
[2018-10-31] MEDS: MIRTAZAPINE 15 MG TABLET (FP) PO SCH (21:31)
[2018-10-31] MEDS: SENNOSIDES 8.8 MG/5 ML BULK BOTTLE PO SCH (21:32)
[2018-11-01] MEDS ORDERED: PREGABALIN 50 MG CAPSULE ONE ×3 (05:21→20:38)
[2018-11-01] MEDS ORDERED: PREGABALIN 100 MG CAPSULE ONE ×3 (05:22→20:38)
[2018-11-01] MEDS: PREGABALIN 100 MG, PREGABALIN 50 MG PO SCH ×3 (05:32→21:16)
--- NOTE | 2018-11-01 08:16 | PN ---
Progress Note, Physician - Current Medication List Current Medications: Active Medications Acetaminophen (Tylenol -) 650 mg PO Q6H PRN PRN Reason: FEVER Last Admin: 10/30/18 23:50 Dose: 650 mg Albuterol Sulfate (Ventolin 0.083% Nebulizer Soln -) 1 amp NEB Q4H PRN PRN Reason: SHORT OF BREATH/WHEEZING Amino Acids (Prosource No Carb Liquid Pkt) 30 ml PO BID@0800,1730 [facility] Last Admin: 10/31/18 18:37 Dose: 30 ml Clonazepam (Klonopin -) 0.5 mg PO HS [facility] Last Admin: 10/31/18 21:31 Dose: 0.5 mg Collagenase (Santyl -) 1 applic TP BID [facility]; Protocol Last Admin: 10/31/18 23:13 Dose: Not Given Docusate Sodium (Colace Liquid -) 100 mg PO DAILY PRN PRN Reason: CONSTIPATION Last Admin: 10/22/18 11:09 Dose: 100 mg Loratadine (Claritin -) 10 mg PO DAILY [facility] Last Admin: 10/31/18 10:41 Dose: 10 mg Mirtazapine (Remeron -) 7.5 mg PO HS [facility] Last Admin: 10/31/18 21:31 Dose: 7.5 mg Mupirocin (Bactroban 2% Ointment -) 1 applic TP BID [facility] Last Admin: 10/31/18 23:12 Dose: Not Given Nystatin (Mycostatin Ointment -) 1 applic TP BID [facility] Last Admin: 10/31/18 23:13 Dose: Not Given Polyethylene Glycol (Miralax (For Daily Use) -) 17 gm GT BID [facility] Last Admin: 10/31/18 21:32 Dose: Not Given Pregabalin 100 mg/ Pregabalin (50 mg) 150 mg PO TID [facility] Last Admin: 11/01/18 05:32 Dose: 150 mg Senna (Senna Oral Solution -) 8.8 mg PO HS [facility] Last Admin: 10/31/18 21:32 Dose: 8.8 mg Sertraline HCl (Zoloft -) 100 mg PO DAILY [facility] Last Admin: 10/31/18 10:41 Dose: 100 mg Ursodiol (Actigal -) 300 mg PO BID [facility] Last Admin: 10/31/18 21:36 Dose: 300 mg - Objective Vital Signs: Vital Signs Temperature 98.8 F 11/01/18 06:00 Pulse Rate 112 H 11/01/18 06:00 Respiratory Rate 15 11/01/18 06:45 Blood Pressure 103/52 L 11/01/18 06:00 O2 Sat by Pulse Oximetry (%) 96 10/31/18 11:12 Cardiovascular: Yes: Regular Rate and Rhythm Respiratory: Yes: Mechanically Ventilated Gastrointestinal: Yes: Normal Bowel Sounds, Soft Labs: CBC, BMP 10/31/18 07:15 10/31/18 07:15 INR, PTT INR 1.13 (0.83-1.09) H 10/12/18 11:30 Problem List - Problems (1) Pneumonia Code(s): J18.9 - PNEUMONIA, UNSPECIFIED ORGANISM Qualifiers: Pneumonia type: due to unspecified organism Laterality: right Lung location: lower lobe of lung Qualified Code(s): J18.1 - Lobar pneumonia, unspecified organism (2) Chronic hypercapnic respiratory failure Code(s): J96.12 - CHRONIC RESPIRATORY FAILURE WITH HYPERCAPNIA (3) Functional 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 (4) Neurogenic bladder Code(s): N31.9 - NEUROMUSCULAR DYSFUNCTION OF BLADDER, UNSPECIFIED (5) Sepsis Code(s): A41.9 - SEPSIS, UNSPECIFIED ORGANISM Qualifiers: Sepsis type: sepsis due to unspecified organism Qualified Code(s): A41.9 - Sepsis, unspecified organism (6) Urinary tract infection Code(s): N39.0 - URINARY TRACT INFECTION, SITE NOT SPECIFIED Qualifiers: (7) Trigeminal neuralgia Code(s): G50.0 - TRIGEMINAL NEURALGIA (8) Anemia Code(s): D64.9 - ANEMIA, UNSPECIFIED Qualifiers: Other causes of anemia: other cause, not classified Assessment/Plan - Problems (1) Bacteremia due to Escherichia coli Assessment/Plan: completed course Microbiology 10/12/18 11:30 Blood - Peripheral Venous Blood Culture - Final Escherichia Coli Code(s): R78.81 - BACTEREMIA (2) Constipation Assessment/Plan: abdominal xray noted miralax enema Code(s): K59.00 - CONSTIPATION, UNSPECIFIED (3) Septic shock Assessment/Plan: resolved taper and stop steroids Code(s): A41.9 - SEPSIS, UNSPECIFIED ORGANISM; R65.21 - SEVERE SEPSIS WITH SEPTIC SHOCK (4) Decubital ulcer Assessment/Plan: appreciate wound care /plastic surgeon note management per plastic surgeon note Code(s): L89.90 - PRESSURE ULCER OF UNSPECIFIED SITE, UNSPECIFIED STAGE Qualifiers: Pressure injury location: unspecified location Pressure injury stage: unspecified pressure injury stage Qualified Code(s): L89.90 - Pressure ulcer of unspecified site, unspecified stage (5) Hx of multiple sclerosis Assessment/Plan: perera cath - chronic for neurogenic bladder g tube due dysphagia- FEN frequent turn and position dvt ppx Code(s): Z86.69 - PERSONAL HISTORY OF DIS OF THE NERVOUS SYS AND SENSE ORGANS (6) Hypernatremia Assessment/Plan: inc free water in tube feeds trend sodium level Code(s): E87.0 - HYPEROSMOLALITY AND HYPERNATREMIA (7) Anemia Assessment/Plan: seen by heme no more iron needed no need to tranfuse Code(s): D64.9 - ANEMIA, UNSPECIFIED (8) Sacral decubitus ulcer, stage IV Assessment/Plan: seen by plastic surgeon collagease Code(s): L89.154 - PRESSURE ULCER OF SACRAL REGION, STAGE 4 Assessment/Plan no klonopin in morning only at night plan to dc home if tolerating weaning
[2018-11-01] MEDS ORDERED: PT OWN MED DRAWER 7, Y5N ONE (10:21)
[2018-11-01] MEDS: AMINO ACIDS/PROTEIN HYDROLYS 30 ML LIQUID.PKT PO SCH ×2 (10:25→16:51)
[2018-11-01] MEDS: SERTRALINE HCL 50 MG TABLET (FP) PO SCH (10:26)
[2018-11-01] MEDS: LORATADINE 10 MG TABLET PO SCH (10:26)
[2018-11-01] MEDS: POLYETHYLENE GLYCOL 3350 119 GM BTL GT SCH (10:26)
[2018-11-01] MEDS: URSODIOL 300 MG CAPSULE PO SCH ×2 (10:26→21:16)
[2018-11-01] MEDS: MUPIROCIN 2% TOPICAL OINTMENT 22 GM TUBE TP SCH (11:34)
[2018-11-01] MEDS: COLLAGENASE CLOSTRIDIUM HIST. 30 GRAMS TUBE TP SCH (11:35)
[2018-11-01] MEDS: NYSTATIN 100000 UNIT/GM TOPICAL OINTMENT 15 GM TUBE TP SCH (11:35)
[2018-11-01 11:46] LABS: HEMATOCRIT 23.3 % (32.4-45.2); HEMOGLOBIN 7.5 GM/dL (10.7-15.3); MCH 31.8 pg (25.7-33.7); MCHC 32.1 g/dl (32.0-36.0); MEAN CELL VOLUME 98.8 fl (80-96); MEAN PLT VOLUME 9.7 fl (7.5-11.1); PLATELET COUNT 248 K/MM3 (134-434); RBC 2.35 M/mm3 (3.60-5.2); RDW 16.4 % (11.6-15.6); WHITE BLOOD COUNT 11.5 K/mm3 (4.0-10.0)
--- NOTE | 2018-11-01 13:28 | PN ---
Progress Note, Physician History of Present Illness: PULMONARY ALERT ON TRACH COLLAR,-RESP DISTRESS - Current Medication List Current Medications: Active Medications Acetaminophen (Tylenol -) 650 mg PO Q6H PRN PRN Reason: FEVER Last Admin: 10/30/18 23:50 Dose: 650 mg Albuterol Sulfate (Ventolin 0.083% Nebulizer Soln -) 1 amp NEB Q4H PRN PRN Reason: SHORT OF BREATH/WHEEZING Amino Acids (Prosource No Carb Liquid Pkt) 30 ml PO BID@0800,1730 [facility] Last Admin: 11/01/18 10:25 Dose: 30 ml Clonazepam (Klonopin -) 0.5 mg PO HS [facility] Last Admin: 10/31/18 21:31 Dose: 0.5 mg Collagenase (Santyl -) 1 applic TP BID [facility]; Protocol Last Admin: 11/01/18 11:35 Dose: 1 applic Docusate Sodium (Colace Liquid -) 100 mg PO DAILY PRN PRN Reason: CONSTIPATION Last Admin: 10/22/18 11:09 Dose: 100 mg Loratadine (Claritin -) 10 mg PO DAILY [facility] Last Admin: 11/01/18 10:26 Dose: 10 mg Mirtazapine (Remeron -) 7.5 mg PO HS [facility] Last Admin: 10/31/18 21:31 Dose: 7.5 mg Mupirocin (Bactroban 2% Ointment -) 1 applic TP BID [facility] Last Admin: 11/01/18 11:34 Dose: 1 applic Nystatin (Mycostatin Ointment -) 1 applic TP BID [facility] Last Admin: 11/01/18 11:35 Dose: Not Given Polyethylene Glycol (Miralax (For Daily Use) -) 17 gm GT BID [facility] Last Admin: 11/01/18 10:26 Dose: Not Given Pregabalin 100 mg/ Pregabalin (50 mg) 150 mg PO TID [facility] Last Admin: 11/01/18 05:32 Dose: 150 mg Senna (Senna Oral Solution -) 8.8 mg PO HS [facility] Last Admin: 10/31/18 21:32 Dose: 8.8 mg Sertraline HCl (Zoloft -) 100 mg PO DAILY [facility] Last Admin: 11/01/18 10:26 Dose: 100 mg Ursodiol (Actigal -) 300 mg PO BID [facility] Last Admin: 11/01/18 10:26 Dose: 300 mg - Objective Vital Signs: Vital Signs Temperature 99.0 F 11/01/18 10:00 Pulse Rate 98 H 11/01/18 12:54 Respiratory Rate 22 H 11/01/18 10:00 Blood Pressure 130/46 L 11/01/18 10:00 O2 Sat by Pulse Oximetry (%) 99 11/01/18 12:54 Constitutional: Yes: Well Nourished, Calm Eyes: Yes: WNL HENT: Yes: WNL Neck: Yes: Supple (TRACH) Cardiovascular: Yes: Regular Rate and Rhythm, S1, S2 Respiratory: Yes: Rhonchi (FEW RHONCHI) Gastrointestinal: Yes: Normal Bowel Sounds, Soft Extremities: Yes: WNL Edema: Yes Labs: CBC, BMP 11/01/18 10:50 10/31/18 07:15 INR, PTT INR 1.13 (0.83-1.09) H 10/12/18 11:30 Problem List - Problems (1) Hypotension Code(s): I95.9 - HYPOTENSION, UNSPECIFIED (2) Pneumonia Code(s): J18.9 - PNEUMONIA, UNSPECIFIED ORGANISM Qualifiers: Pneumonia type: due to unspecified organism Laterality: right Lung location: lower lobe of lung Qualified Code(s): J18.1 - Lobar pneumonia, unspecified organism (3) Septic shock Code(s): A41.9 - SEPSIS, UNSPECIFIED ORGANISM; R65.21 - SEVERE SEPSIS WITH SEPTIC SHOCK (4) Acute on chronic respiratory failure with hypoxia and hypercapnia Code(s): J96.21 - ACUTE AND CHRONIC RESPIRATORY FAILURE WITH HYPOXIA; J96.22 - ACUTE AND CHRONIC RESPIRATORY FAILURE WITH HYPERCAPNIA (5) Anemia Code(s): D64.9 - ANEMIA, UNSPECIFIED (6) Chronic hypercapnic respiratory failure Code(s): J96.12 - CHRONIC RESPIRATORY FAILURE WITH HYPERCAPNIA (7) Edema Code(s): R60.9 - EDEMA, UNSPECIFIED (8) Functional quadriplegia Code(s): R53.2 - FUNCTIONAL QUADRIPLEGIA (9) Functional 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 (10) Hx of multiple sclerosis Code(s): Z86.69 - PERSONAL HISTORY OF DIS OF THE NERVOUS SYS AND SENSE ORGANS (11) Neurogenic bladder Code(s): N31.9 - NEUROMUSCULAR DYSFUNCTION OF BLADDER, UNSPECIFIED (12) Sepsis Code(s): A41.9 - SEPSIS, UNSPECIFIED ORGANISM Qualifiers: Sepsis type: sepsis due to unspecified organism Qualified Code(s): A41.9 - Sepsis, unspecified organism Assessment/Plan ASSESSMENT/PLAN: Resolved Septic Shock secondary to urinary tract source Pneumonia improved Acute Hypoxic Hypercapneic Respiratory Failure improved Anemia Hypothyroidism Multiple Sclerosis Trigeminal Neuralgia Gallstones Anemia Vent support ac mode at night Trach collar as tolerated VTE prophylaxis Enteral feeds Anemia chest x-ray monitor h+h DR ELDER
[2018-11-01] MEDS: ACETAMINOPHEN 325 MG TABLET (FP) PO PRN (19:40)
[2018-11-01] MEDS: MIRTAZAPINE 15 MG TABLET (FP) PO SCH (21:16)
[2018-11-01] MEDS: clonazePAM 0.5 MG TABLET PO SCH (21:16)
[2018-11-02] MEDS: POLYETHYLENE GLYCOL 3350 119 GM BTL GT SCH ×3 (00:01→21:08)
[2018-11-02] MEDS: SENNOSIDES 8.8 MG/5 ML BULK BOTTLE PO SCH ×2 (00:02→21:09)
[2018-11-02] MEDS: COLLAGENASE CLOSTRIDIUM HIST. 30 GRAMS TUBE TP SCH ×3 (00:04→21:08)
[2018-11-02] MEDS: MUPIROCIN 2% TOPICAL OINTMENT 22 GM TUBE TP SCH ×3 (00:04→22:39)
[2018-11-02] MEDS: NYSTATIN 100000 UNIT/GM TOPICAL OINTMENT 15 GM TUBE TP SCH ×3 (01:43→21:08)
[2018-11-02] MEDS ORDERED: SODIUM CHLORIDE 0.9% 500 ML INFUS.BAG IV ONE (02:13)
[2018-11-02] MEDS ORDERED: PREGABALIN 50 MG CAPSULE ONE (05:23)
[2018-11-02] MEDS ORDERED: PREGABALIN 100 MG CAPSULE ONE (05:23)
[2018-11-02] MEDS: PREGABALIN 100 MG, PREGABALIN 50 MG PO SCH (05:27)
--- NOTE | 2018-11-02 07:37 | PN ---
Progress Note, Physician - Current Medication List Current Medications: Active Medications Acetaminophen (Tylenol -) 650 mg PO Q6H PRN PRN Reason: FEVER Last Admin: 11/01/18 19:40 Dose: 650 mg Albuterol Sulfate (Ventolin 0.083% Nebulizer Soln -) 1 amp NEB Q4H PRN PRN Reason: SHORT OF BREATH/WHEEZING Amino Acids (Prosource No Carb Liquid Pkt) 30 ml PO BID@0800,1730 [facility] Last Admin: 11/01/18 16:51 Dose: 30 ml Clonazepam (Klonopin -) 0.5 mg PO HS [facility] Last Admin: 11/01/18 21:16 Dose: 0.5 mg Collagenase (Santyl -) 1 applic TP BID [facility]; Protocol Last Admin: 11/02/18 00:04 Dose: Not Given Docusate Sodium (Colace Liquid -) 100 mg PO DAILY PRN PRN Reason: CONSTIPATION Last Admin: 10/22/18 11:09 Dose: 100 mg Loratadine (Claritin -) 10 mg PO DAILY [facility] Last Admin: 11/01/18 10:26 Dose: 10 mg Mirtazapine (Remeron -) 7.5 mg PO HS [facility] Last Admin: 11/01/18 21:16 Dose: 7.5 mg Mupirocin (Bactroban 2% Ointment -) 1 applic TP BID [facility] Last Admin: 11/02/18 00:04 Dose: Not Given Nystatin (Mycostatin Ointment -) 1 applic TP BID [facility] Last Admin: 11/02/18 01:43 Dose: Not Given Polyethylene Glycol (Miralax (For Daily Use) -) 17 gm GT BID [facility] Last Admin: 11/02/18 00:01 Dose: Not Given Pregabalin 100 mg/ Pregabalin (50 mg) 150 mg PO TID [facility] Last Admin: 11/02/18 05:27 Dose: 150 mg Senna (Senna Oral Solution -) 8.8 mg PO HS [facility] Last Admin: 11/02/18 00:02 Dose: Not Given Sertraline HCl (Zoloft -) 100 mg PO DAILY [facility] Last Admin: 11/01/18 10:26 Dose: 100 mg Ursodiol (Actigal -) 300 mg PO BID [facility] Last Admin: 11/01/18 21:16 Dose: 300 mg - Objective Vital Signs: Vital Signs Temperature 100 F H 11/02/18 06:00 Pulse Rate 93 H 11/02/18 06:00 Respiratory Rate 15 11/02/18 06:10 Blood Pressure 114/52 L 11/02/18 06:00 O2 Sat by Pulse Oximetry (%) 98 11/02/18 00:30 Labs: CBC, BMP 11/01/18 10:50 10/31/18 07:15 INR, PTT INR 1.13 (0.83-1.09) H 10/12/18 11:30 Problem List - Problems (1) Pneumonia Code(s): J18.9 - PNEUMONIA, UNSPECIFIED ORGANISM Qualifiers: Pneumonia type: due to unspecified organism Laterality: right Lung location: lower lobe of lung Qualified Code(s): J18.1 - Lobar pneumonia, unspecified organism (2) Chronic hypercapnic respiratory failure Code(s): J96.12 - CHRONIC RESPIRATORY FAILURE WITH HYPERCAPNIA (3) Functional 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 (4) Neurogenic bladder Code(s): N31.9 - NEUROMUSCULAR DYSFUNCTION OF BLADDER, UNSPECIFIED (5) Sepsis Code(s): A41.9 - SEPSIS, UNSPECIFIED ORGANISM Qualifiers: Sepsis type: sepsis due to unspecified organism Qualified Code(s): A41.9 - Sepsis, unspecified organism (6) Urinary tract infection Code(s): N39.0 - URINARY TRACT INFECTION, SITE NOT SPECIFIED Qualifiers: (7) Trigeminal neuralgia Code(s): G50.0 - TRIGEMINAL NEURALGIA (8) Anemia Code(s): D64.9 - ANEMIA, UNSPECIFIED Qualifiers: Other causes of anemia: other cause, not classified
[2018-11-02] MEDS: AMINO ACIDS/PROTEIN HYDROLYS 30 ML LIQUID.PKT PO SCH ×2 (07:59→16:52)
[2018-11-02] MEDS: ACETAMINOPHEN 325 MG TABLET (FP) PO PRN ×3 (07:59→21:07)
[2018-11-02 08:51] LABS: ALBUMIN 1.5 g/dl (3.4-5.0); BILIRUBIN,TOTAL 0.2 mg/dL (0.2-1); BLOOD UREA NITROGEN 42.5 mg/dL (7-18); CALCIUM 8.1 mg/dL (8.5-10.1); CREATININE 0.7 mg/dL (0.55-1.3); POTASSIUM 4.4 mmol/L (3.5-5.1); TOT PROT 6.9 g/dl (6.4-8.2)
[2018-11-02 08:57] LABS: BASO % 0.3 % (0-2.0); EOS % 4.3 % (0-4.5); HEMATOCRIT 19.6 % (32.4-45.2); LYMPH % 12.1 % (8-40); MCH 32.1 pg (25.7-33.7); MCHC 32.4 g/dl (32.0-36.0); MEAN PLT VOLUME 9.2 fl (7.5-11.1); MONO % 10.2 % (3.8-10.2); NEUT % 73.1 % (42.8-82.8); PLATELET COUNT 208 K/MM3 (134-434); RBC 1.98 M/mm3 (3.60-5.2); RDW 17.1 % (11.6-15.6); WHITE BLOOD COUNT 7.7 K/mm3 (4.0-10.0)
[2018-11-02 08:59] LABS: HEMOGLOBIN 6.3 GM/dL (10.7-15.3)
[2018-11-02] MEDS ORDERED: methylPREDNISolone NA SUCC 125 MG/2 ML VIAL IVPUSH ONE (10:56)
[2018-11-02] MEDS: URSODIOL 300 MG CAPSULE PO SCH ×2 (11:44→21:07)
[2018-11-02] MEDS: SERTRALINE HCL 50 MG TABLET (FP) PO SCH (11:44)
[2018-11-02] MEDS: LORATADINE 10 MG TABLET PO SCH (11:44)
[2018-11-02] MEDS ORDERED: LIDOCAINE HCL 5% TOP OINTMENT 50 GM TUBE TP ONE (12:15)
--- NOTE | 2018-11-02 12:31 | PN ---
Progress Note (short form) - Note Progress Note: PULMONARY On trach collar. Denies shortness of breath. H/H low this AM. c/o facial pain. Vital Signs Period Temp Pulse Resp BP Sys/Morillo Pulse Ox Last 24 Hr 98.5 F-100 F 74-98 14-22 84-136/34-64 98-99 Gen: NAD on trach collar Heart: RRR Lung: scattered rhonchi Abd: soft, nontender Ext: trace edema CBC, BMP 11/02/18 07:40 11/02/18 07:40 Active Medications Acetaminophen (Tylenol -) 650 mg PO Q6H PRN PRN Reason: FEVER Last Admin: 11/02/18 07:59 Dose: 650 mg Albuterol Sulfate (Ventolin 0.083% Nebulizer Soln -) 1 amp NEB Q4H PRN PRN Reason: SHORT OF BREATH/WHEEZING Amino Acids (Prosource No Carb Liquid Pkt) 30 ml PO BID@0800,1730 [facility] Last Admin: 11/02/18 07:59 Dose: 30 ml Clonazepam (Klonopin -) 0.5 mg PO HS [facility] Last Admin: 11/01/18 21:16 Dose: 0.5 mg Collagenase (Santyl -) 1 applic TP BID [facility]; Protocol Last Admin: 11/02/18 00:04 Dose: Not Given Docusate Sodium (Colace Liquid -) 100 mg PO DAILY PRN PRN Reason: CONSTIPATION Last Admin: 10/22/18 11:09 Dose: 100 mg Loratadine (Claritin -) 10 mg PO DAILY [facility] Last Admin: 11/02/18 11:44 Dose: 10 mg Mirtazapine (Remeron -) 7.5 mg PO HS [facility] Last Admin: 11/01/18 21:16 Dose: 7.5 mg Mupirocin (Bactroban 2% Ointment -) 1 applic TP BID [facility] Last Admin: 11/02/18 00:04 Dose: Not Given Nystatin (Mycostatin Ointment -) 1 applic TP BID [facility] Last Admin: 11/02/18 11:45 Dose: Not Given Polyethylene Glycol (Miralax (For Daily Use) -) 17 gm GT BID [facility] Last Admin: 11/02/18 11:19 Dose: Not Given Senna (Senna Oral Solution -) 8.8 mg PO HS [facility] Last Admin: 11/02/18 00:02 Dose: Not Given Sertraline HCl (Zoloft -) 100 mg PO DAILY [facility] Last Admin: 11/02/18 11:44 Dose: 100 mg Ursodiol (Actigal -) 300 mg PO BID [facility] Last Admin: 11/02/18 11:44 Dose: 300 mg A/P UTI Pneumonia s/p Septic shock Acute on Chronic Hypoxic and Hypercapneic Respiratory Failure improving Anemia Hypothyroidism Multiple Sclerosis Trigeminal Neuralgia Gallstones - transfuse PRBC - monitor H/H - resume lyrica - completed antibiotics - trach collar, PMV as tolerated - mechanical ventilation at night - enteral feeds - DVT/GI prophylaxis
[2018-11-02] MEDS: PREGABALIN 75 MG CAPSULE PO SCH ×2 (13:17→21:07)
--- NOTE | 2018-11-02 14:03 | PN ---
Progress Note (short form) - Note Progress Note: FU all wounds Patient general condition weak Diarrhoea Wounds deteriorating Low Hb hct, low albuminProblem Selected Entries 11/02/18 11/02/18 09:00 10:00 Temperature 99.3 F Pulse Rhythm [ Regular Apical] Pulse Strength Normal [Apical] Respiratory 14 Rate Respiratory Normal Depth Respiratory Non-Labored Effort Blood Pressure 108/52 L O2 Sat by Pulse 98 Oximetry (%) Oxygen Delivery Trach Collar Method Laboratory Tests 11/01/18 11/02/18 11/02/18 10:50 07:40 07:40 WBC 11.5 H 7.7 Hgb 7.5 L Hct 23.3 L 19.6 L D RDW 16.4 H 17.1 H Calcium 8.1 L Alkaline Phosphatase 163 H Total Protein 6.9 Albumin 1.5 L Problems :Several wound contamination with faecal mattress wounds showing pressure injury getting worse wounds recovery delayed from above factors including loss of blood , anaemia Treatment : all Wounds debrided with #15 blade D/C collagenase till diarrhea controlled Waiting Blood transfusion
[2018-11-02 14:44] LABS: PH,URINE 6.5 (5.0-8.0); URINE APPEARANCE CLOUDY; URINE BILIRUBIN NEGATIVE (NEGATIVE); URINE COLOR YELLOW; URINE GLUCOSE (UA) NEGATIVE (NEGATIVE); URINE KETONE NEGATIVE (NEGATIVE); URINE LEUK ESTERASE 3+ (NEGATIVE); URINE NITRITE NEGATIVE (NEGATIVE); URINE PROTEIN NEGATIVE (NEGATIVE); URINE UROBILINOGEN 0.2 mg/dL (0.2-1.0)
[2018-11-02 15:00] LABS: EPI CELLS 26.7 /HPF (0-5/HPF); HYALINE CASTS 6.76 /lpf (0-8); URINE RBC 1.5 /hpf (0-4); URINE WBC 11.4 /hpf (0-5)
[2018-11-02 15:01] LABS: URINE BACTERIA 4.4 /hpf (NEGATIVE)
[2018-11-02] MEDS ORDERED: methylPREDNISolone NA SUCC 125 MG/2 ML VIAL ONE (16:46)
[2018-11-02] MEDS ORDERED: PT OWN MED DRAWER 7, Y5N ONE (20:36)
[2018-11-02] MEDS: MIRTAZAPINE 15 MG TABLET (FP) PO SCH (21:06)
[2018-11-02] MEDS: PANTOPRAZOLE SOD 40 MG SUSPENSION PACKET PEG SCH (21:06)
[2018-11-02] MEDS: clonazePAM 0.5 MG TABLET PO SCH (21:07)
--- NOTE | 2018-11-02 22:32 | PN ---
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 s/p sepsis urine source s/p jessica h/o siadh Current Medications Acetaminophen (Tylenol -) 650 mg PO Q6H PRN PRN Reason: FEVER Last Admin: 11/02/18 21:07 Dose: 650 mg Albuterol Sulfate (Ventolin 0.083% Nebulizer Soln -) 1 amp NEB Q4H PRN PRN Reason: SHORT OF BREATH/WHEEZING Amino Acids (Prosource No Carb Liquid Pkt) 30 ml PO BID@0800,1730 [facility] Last Admin: 11/02/18 16:52 Dose: 30 ml Clonazepam (Klonopin -) 0.5 mg PO HS [facility] Last Admin: 11/02/18 21:07 Dose: 0.5 mg Collagenase (Santyl -) 1 applic TP BID [facility]; Protocol Last Admin: 11/02/18 21:08 Dose: Not Given Docusate Sodium (Colace Liquid -) 100 mg PO DAILY PRN PRN Reason: CONSTIPATION Last Admin: 10/22/18 11:09 Dose: 100 mg Loratadine (Claritin -) 10 mg PO DAILY [facility] Last Admin: 11/02/18 11:44 Dose: 10 mg Mirtazapine (Remeron -) 7.5 mg PO HS [facility] Last Admin: 11/02/18 21:06 Dose: 7.5 mg Mupirocin (Bactroban 2% Ointment -) 1 applic TP BID [facility] Last Admin: 11/02/18 16:54 Dose: 1 applic Nystatin (Mycostatin Ointment -) 1 applic TP BID [facility] Last Admin: 11/02/18 21:08 Dose: Not Given Pantoprazole Sodium (Protonix Packets For Oral Suspension -) 40 mg PEG DAILY [facility] Last Admin: 11/02/18 21:06 Dose: 40 mg Polyethylene Glycol (Miralax (For Daily Use) -) 17 gm GT BID [facility] Last Admin: 11/02/18 21:08 Dose: Not Given Pregabalin (Lyrica -) 150 mg PO TID [facility] Last Admin: 11/02/18 21:07 Dose: 150 mg Senna (Senna Oral Solution -) 8.8 mg PO HS [facility] Last Admin: 11/02/18 21:09 Dose: Not Given Sertraline HCl (Zoloft -) 100 mg PO DAILY [facility] Last Admin: 11/02/18 11:44 Dose: 100 mg Ursodiol (Actigal -) 300 mg PO BID [facility] Last Admin: 11/02/18 21:07 Dose: 300 mg Last Vital Signs Temp Pulse Resp BP Pulse Ox 98.0 F 78 15 127/68 98 11/02/18 18:10 11/02/18 18:10 11/02/18 21:36 11/02/18 18:10 11/02/18 10:00 lungs clear heart reg abd soft nontender ext no edema CBC, BMP 11/02/18 07:40 11/02/18 07:40 anemia Prerenal less marked jessica continues to improve Hypernatremia worse today Plan- repeat BMP to check serum sodium in am
[2018-11-03] MEDS: PREGABALIN 75 MG CAPSULE PO SCH ×2 (06:04→14:34)
[2018-11-03] MEDS: ACETAMINOPHEN 325 MG TABLET (FP) PO PRN (06:55)
[2018-11-03 08:08] LABS: BASO % 0.1 % (0-2.0); HEMATOCRIT 24.1 % (32.4-45.2); HEMOGLOBIN 7.9 GM/dL (10.7-15.3); LYMPH % 5.5 % (8-40); MCH 31.6 pg (25.7-33.7); MCHC 32.7 g/dl (32.0-36.0); MEAN CELL VOLUME 96.4 fl (80-96); MONO % 1.6 % (3.8-10.2); NEUT % 92.8 % (42.8-82.8); PLATELET COUNT 278 K/MM3 (134-434); RDW 17.4 % (11.6-15.6); WHITE BLOOD COUNT 8.8 K/mm3 (4.0-10.0)
[2018-11-03] MEDS: AMINO ACIDS/PROTEIN HYDROLYS 30 ML LIQUID.PKT PO SCH (08:49)
[2018-11-03 09:20] LABS: ANISOCYTOSIS 1+; MACROCYTOSIS 0; PLATELET ESTIMATE NORMAL
--- NOTE | 2018-11-03 09:52 | DS ---
Physical Examination Vital Signs: Vital Signs Temperature 98.8 F 11/03/18 06:00 Pulse Rate 86 11/03/18 09:40 Respiratory Rate 14 11/03/18 08:07 Blood Pressure 146/82 11/03/18 06:00 O2 Sat by Pulse Oximetry (%) 98 11/03/18 09:40 Constitutional: Yes: No Distress, Calm Eyes: Yes: Conjunctiva Clear HENT: Yes: Atraumatic Neck: Yes: Other (trach) Cardiovascular: Yes: Regular Rate and Rhythm Respiratory: Yes: Regular, Diminished, Mechanically Ventilated Gastrointestinal: Yes: Normal Bowel Sounds, Soft, Other (G tube) ...Rectal Exam: Yes: Other (rectal tube) Renal/: Yes: Raza Present Musculoskeletal: Yes: Muscle Weakness Extremities: Yes: WNL Edema: No Neurological: Yes: Alert, Pre-Existing Deficit Psychiatric: Yes: Alert, Oriented Labs: CBC, BMP 11/03/18 07:35 11/02/18 07:40 Discharge Summary Reason For Visit: PNEUMONIA Current Active Problems Acute renal insufficiency (Acute) Anemia (Acute) Bacteremia (Acute) Bacteremia due to Escherichia coli (Acute) Gallstones (Acute) Hyperkalemia (Acute) Hypernatremia (Acute) Hypotension (Acute) Pneumonia (Acute) Septic shock (Acute) Hospital Course: Patient is a 53 y/o female with past medical history of MS on trach collar mechanically ventilated, chronic hyponatremia, hypothyroidism, trigeminal neuralgia, chronic UTIs. Patient presented to ER via EMS after change in mental status. Mother states she noted patient to be more lethargic and less responsive than usual this morning. While doing morning care on her they noted that she became unresponsive and EMS was called. On ER arrival patient noted to be hypotensive with systolic BP in 60s Since admission BP has improved and currently stable. Had multiple blood transfusion due to anemia. Current Hg stable at 7.9 Patient is medically cleared for discharge Condition: Stable - Instructions Diet, Activity, Other Instructions: Follow up with PMD 1 week post discharge CBC drawn weekly to monitor Hg CMP drawn weekly to monitor renal function and sodium level follow up with Neurology for trigeminal neuralgia continue with medication as prescribed return to ER if develop change in mental status, chest pain, respiratory distress, fever wound care: dilute betadine with normal saline, apply daily and after wound contamination. cover dressing change daily and as needed if soiled Disposition: VNS/HOME HEALTH CARE - Home Medications Comprehensive Discharge Medication List: Ambulatory Orders Clonazepam [Klonopin] 0.5 mg PO BID 10/12/18 Loratadine 10 mg PO DAILY 10/12/18 Mirtazapine 7.5 mg PO HS 10/12/18 Pregabalin [Lyrica -] 150 mg PO BID 10/12/18 Sertraline HCl [Zoloft] 100 mg PO DAILY 10/12/18 Ursodiol [Actigal -] 300 mg PO BID 10/12/18 Amino Acids/Protein Hydrolys [Prosource No Carb Liquid Pkt] 30 ml PO BID@0800, 1730 packet 10/25/18 Docusate Liquid [Colace Liquid -] 100 mg PO DAILY PRN ud 10/25/18 Nystatin Ointment [Mycostatin Ointment -] 1 applic TP BID #60 gr 10/25/18 Pregabalin [Lyrica -] 150 mg PO TID #90 capsule MDD 3 10/25/18
[2018-11-03] MEDS: POLYETHYLENE GLYCOL 3350 119 GM BTL GT SCH (11:00)
[2018-11-03] MEDS: SERTRALINE HCL 50 MG TABLET (FP) PO SCH (11:03)
[2018-11-03] MEDS: LORATADINE 10 MG TABLET PO SCH (11:03)
[2018-11-03] MEDS: PANTOPRAZOLE SOD 40 MG SUSPENSION PACKET PEG SCH (11:03)
[2018-11-03] MEDS: URSODIOL 300 MG CAPSULE PO SCH (11:04)
--- NOTE | 2018-11-03 12:25 | PN ---
Progress Note, Physician History of Present Illness: PULMONARY COMFORTABLE,ON TRACH COLLAR,-RESP DISTRESS - Current Medication List Current Medications: Active Medications Acetaminophen (Tylenol -) 650 mg PO Q6H PRN PRN Reason: FEVER Last Admin: 11/03/18 06:55 Dose: 650 mg Albuterol Sulfate (Ventolin 0.083% Nebulizer Soln -) 1 amp NEB Q4H PRN PRN Reason: SHORT OF BREATH/WHEEZING Amino Acids (Prosource No Carb Liquid Pkt) 30 ml PO BID@0800,1730 [facility] Last Admin: 11/03/18 08:49 Dose: 30 ml Clonazepam (Klonopin -) 0.5 mg PO HS [facility] Last Admin: 11/02/18 21:07 Dose: 0.5 mg Collagenase (Santyl -) 1 applic TP BID [facility]; Protocol Last Admin: 11/02/18 21:08 Dose: Not Given Docusate Sodium (Colace Liquid -) 100 mg PO DAILY PRN PRN Reason: CONSTIPATION Last Admin: 10/22/18 11:09 Dose: 100 mg Loratadine (Claritin -) 10 mg PO DAILY [facility] Last Admin: 11/03/18 11:03 Dose: 10 mg Mirtazapine (Remeron -) 7.5 mg PO HS [facility] Last Admin: 11/02/18 21:06 Dose: 7.5 mg Mupirocin (Bactroban 2% Ointment -) 1 applic TP BID [facility] Last Admin: 11/02/18 22:39 Dose: Not Given Nystatin (Mycostatin Ointment -) 1 applic TP BID [facility] Last Admin: 11/02/18 21:08 Dose: Not Given Pantoprazole Sodium (Protonix Packets For Oral Suspension -) 40 mg PEG DAILY [facility] Last Admin: 11/03/18 11:03 Dose: 40 mg Polyethylene Glycol (Miralax (For Daily Use) -) 17 gm GT BID [facility] Last Admin: 11/02/18 21:08 Dose: Not Given Pregabalin (Lyrica -) 150 mg PO TID [facility] Last Admin: 11/03/18 06:04 Dose: 150 mg Senna (Senna Oral Solution -) 8.8 mg PO HS [facility] Last Admin: 11/02/18 21:09 Dose: Not Given Sertraline HCl (Zoloft -) 100 mg PO DAILY [facility] Last Admin: 11/03/18 11:03 Dose: 100 mg Ursodiol (Actigal -) 300 mg PO BID [facility] Last Admin: 11/03/18 11:04 Dose: 300 mg - Objective Vital Signs: Vital Signs Temperature 97.7 F 11/03/18 11:00 Pulse Rate 77 11/03/18 11:00 Respiratory Rate 20 11/03/18 11:00 Blood Pressure 141/88 11/03/18 11:00 O2 Sat by Pulse Oximetry (%) 98 11/03/18 09:40 Constitutional: Yes: Well Nourished, Calm Eyes: Yes: WNL HENT: Yes: WNL Neck: Yes: Supple (TRACH) Cardiovascular: Yes: Regular Rate and Rhythm, S1, S2 Respiratory: Yes: Rhonchi (OCC FEW RHONCHI) Gastrointestinal: Yes: Normal Bowel Sounds, Soft Extremities: Yes: WNL Edema: Yes Edema: LLE: Trace, RLE: Trace Labs: CBC, BMP 11/03/18 07:35 Problem List - Problems (1) Hypotension Code(s): I95.9 - HYPOTENSION, UNSPECIFIED (2) Pneumonia Code(s): J18.9 - PNEUMONIA, UNSPECIFIED ORGANISM Qualifiers: Pneumonia type: due to unspecified organism Laterality: right Lung location: lower lobe of lung Qualified Code(s): J18.1 - Lobar pneumonia, unspecified organism (3) Septic shock Code(s): A41.9 - SEPSIS, UNSPECIFIED ORGANISM; R65.21 - SEVERE SEPSIS WITH SEPTIC SHOCK (4) Acute on chronic respiratory failure with hypoxia and hypercapnia Code(s): J96.21 - ACUTE AND CHRONIC RESPIRATORY FAILURE WITH HYPOXIA; J96.22 - ACUTE AND CHRONIC RESPIRATORY FAILURE WITH HYPERCAPNIA (5) Anemia Code(s): D64.9 - ANEMIA, UNSPECIFIED (6) Chronic hypercapnic respiratory failure Code(s): J96.12 - CHRONIC RESPIRATORY FAILURE WITH HYPERCAPNIA (7) Edema Code(s): R60.9 - EDEMA, UNSPECIFIED (8) Functional quadriplegia Code(s): R53.2 - FUNCTIONAL QUADRIPLEGIA (9) Functional 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 (10) Hx of multiple sclerosis Code(s): Z86.69 - PERSONAL HISTORY OF DIS OF THE NERVOUS SYS AND SENSE ORGANS (11) Neurogenic bladder Code(s): N31.9 - NEUROMUSCULAR DYSFUNCTION OF BLADDER, UNSPECIFIED (12) Sepsis Code(s): A41.9 - SEPSIS, UNSPECIFIED ORGANISM Qualifiers: Sepsis type: sepsis due to unspecified organism Qualified Code(s): A41.9 - Sepsis, unspecified organism Assessment/Plan ASSESSMENT/PLAN: Resolved Septic Shock secondary to urinary tract source Pneumonia improved Acute Hypoxic Hypercapneic Respiratory Failure improved Anemia Hypothyroidism Multiple Sclerosis Trigeminal Neuralgia Gallstones Anemia Vent support ac mode at night Trach collar as tolerated VTE prophylaxis Enteral feeds Anemia DR ELDER
[2018-11-03] MEDS: MUPIROCIN 2% TOPICAL OINTMENT 22 GM TUBE TP SCH (12:30)
[2018-11-03] MEDS: NYSTATIN 100000 UNIT/GM TOPICAL OINTMENT 15 GM TUBE TP SCH (14:02)
[2018-11-03] MEDS: COLLAGENASE CLOSTRIDIUM HIST. 30 GRAMS TUBE TP SCH (14:03)
--- NOTE | 2018-11-03 14:37 | CON.NEURO ---
Consult - Past Medical History RN DIGESTIVE: Yes: Multiple Sclerosis (quadraplegia), Other (legally blind, trigeminal neuralgia -> baclofen pump) Cardio/Vascular: Yes: HTN, Hyperlipdemia Pulmonary: Yes: Pneumonia, Previously Intubated, Other. No: Asthma, Bronchitis , Cancer, COPD, Pulmonary Embolus, Pulmonary Fibrosis, Sleep Apnea Gastrointestinal: Yes: Constipation (chronic) Hepatobiliary: Yes: Cholelithiasis Renal/: Yes: Neurogenic Bladder ( neurogenic bladder, chronic perera catheter) ...LMP: 06/07/12 Infectious Disease: Yes: Other (pneumonia, uti treated by urologist) Musculoskeletal: Yes: Other (Quadraplegia) Dermatology: Yes: Other (chronic decubitus followed by wound care) Additional Medical History: trigeminal neuralgia, baclofen pump. chronic decubitus followed by wound care. neurogenic bladder, chronic perera catheter. IR placed G tube - Past Surgical History Past Surgical History: Yes: Colonoscopy - Alcohol/Substance Use Hx Alcohol Use: No History of Substance Use: reports: None - Smoking History Smoking history: Current every day smoker Have you smoked in the past 12 months: No Aproximately how many cigarettes per day: 0 - Social History Usual Living Arrangement: With Parent (mother) ADL: Support Services History of Recent Travel: No Home Medications - Allergies Allergies/Adverse Reactions: Allergies Allergy/AdvReac Type Severity Reaction Status Date / Time chloral hydrate Allergy Intermediate Rash Verified 10/12/18 12:02 [Chloral Hydrate] azathioprine [From Imuran] Allergy Rash Verified 10/12/18 12:02 azathioprine sodium Allergy Rash Verified 10/12/18 12:02 [From Imuran] adhesive tape AdvReac Severe sensitivity Verified 10/12/18 12:02 to glue adhesive AdvReac Unknown Verified 10/12/18 12:02 - Home Medications Home Medications: Ambulatory Orders Clonazepam [Klonopin] 0.5 mg PO BID 10/12/18 Loratadine 10 mg PO DAILY 10/12/18 Mirtazapine 7.5 mg PO HS 10/12/18 Pregabalin [Lyrica -] 150 mg PO BID 10/12/18 Sertraline HCl [Zoloft] 100 mg PO DAILY 10/12/18 Ursodiol [Actigal -] 300 mg PO BID 10/12/18 Amino Acids/Protein Hydrolys [Prosource No Carb Liquid Pkt] 30 ml PO BID@0800, 1730 packet 10/25/18 Docusate Liquid [Colace Liquid -] 100 mg PO DAILY PRN ud 10/25/18 Nystatin Ointment [Mycostatin Ointment -] 1 applic TP BID #60 gr 10/25/18 Pregabalin [Lyrica -] 150 mg PO TID #90 capsule MDD 3 10/25/18 Family Disease History - Family Disease History Family Disease History: Diabetes: Sister, Other: Father (GB surgery), Mother Physical Exam-Neuro Vital Signs: Vital Signs Temperature 97.7 F 11/03/18 11:00 Pulse Rate 77 11/03/18 11:00 Respiratory Rate 20 11/03/18 11:00 Blood Pressure 141/88 11/03/18 11:00 O2 Sat by Pulse Oximetry (%) 98 11/03/18 09:40 Labs: CBC, BMP 11/03/18 07:35 11/02/18 07:40 INR, PTT INR 1.13 (0.83-1.09) H 10/12/18 11:30 Assessment/Plan cc Left face pain HPI 53 year female histoyr of MS on trach collar, hypothyroidism, tirgeminal enuralgia, on peg tube feeding. Chinmay was seen by dr rock and has been on pregabalin ( Lyrica) 150 mg q8h . Her pain was controlled and now she is having severe jabbing pain on left side of face, which she describes as electirc shock like sensation. She is diagnosed with trigeminal neuralgia , which is due to MS. Her pain is uncontrolled and at times, it interfer with jaw opening and eating. PMH as above Allergies/Adverse Reactions: Allergies Allergy/AdvReac Type Severity Reaction Status Date / Time chloral hydrate Allergy Intermediate Rash Verified 10/12/18 12:02 [Chloral Hydrate] azathioprine [From Imuran] Allergy Rash Verified 10/12/18 12:02 azathioprine sodium Allergy Rash Verified 10/12/18 12:02 [From Imuran] adhesive tape AdvReac Severe sensitivity Verified 10/12/18 12:02 to glue adhesive AdvReac Unknown Verified 10/12/18 12:02 Home Medications: Clonazepam [Klonopin] 0.5 mg PO BID 10/12/18 Loratadine 10 mg PO DAILY 10/12/18 Mirtazapine 7.5 mg PO HS 10/12/18 Pregabalin [Lyrica -] 150 mg PO BID 10/12/18 Sertraline HCl [Zoloft] 100 mg PO DAILY 10/12/18 Ursodiol [Actigal -] 300 mg PO BID 10/12/18 Amino Acids/Protein Hydrolys [Prosource No Carb Liquid Pkt] 30 ml PO BID@0800, 1730 packet 10/25/18 Docusate Liquid [Colace Liquid -] 100 mg PO DAILY PRN ud 10/25/18 Nystatin Ointment [Mycostatin Ointment -] 1 applic TP BID #60 gr 10/25/18 Pregabalin [Lyrica -] 150 mg PO TID #90 capsule MDD 3 10/25/18 NEUROLOIGCAL EXAMINATION Alert, speech is normal, follow command, neck is supple, afebrile VSS Eomi, pupils reactive, left face has dysthesia on left side quadraparesis which is old Assessment/Plan worsening of left face pain due to Left Trigeminal Neuralgia Plan: continue lyrica 150 mg po bid - add nortripytline 25 mg po bid and remeron can be stopped - tramadol 50 mg q8 hour prn - discussed with Primary team Thanking you so much González Fleming MD
[2018-11-03 15:47] VITALS: BP 134/73; PULSE 64; TEMP 97.9
[2018-11-03] MEDS ORDERED: AMITRIPTYLINE HCL 25 MG TABLET (FP) PO SCH (22:00)
== END 2018-11-03 18:19 | disposition home health service (06) | DRG 870 ==
LOC: JER 11:04 → JERBED 14:40 → JICU 18:03 → J5S 10-17 16:44
PROVIDERS: ADMIT Family Medicine; ATTEND Family Medicine
PROC: 5A1955Z Respiratory Ventilation, Greater than 96 Consecutive Hours (ICD-10-PCS; principal; 2018-10-12)
PROC: 05H533Z Insertion of Infusion Device into Right Subclavian Vein, Percutaneous Approach (ICD-10-PCS; 2018-10-12)
PROC: B516ZZA Fluoroscopy of Right Subclavian Vein, Guidance (ICD-10-PCS; 2018-10-12)
PROC: 06H033Z Insertion of Infusion Device into Inferior Vena Cava, Percutaneous Approach (ICD-10-PCS; 2018-10-12)
PROC: B519ZZA Fluoroscopy of Inferior Vena Cava, Guidance (ICD-10-PCS; 2018-10-12)
PROC: 0B21XFZ Change Tracheostomy Device in Trachea, External Approach (ICD-10-PCS; 2018-10-28)
PROC: 0HB8XZZ Excision of Buttock Skin, External Approach (ICD-10-PCS; 2018-11-02)
DX: A41.51 Sepsis due to Escherichia coli [E. coli] (principal); L89.324 Pressure ulcer of left buttock, stage 4; L89.154 Pressure ulcer of sacral region, stage 4; J96.21 Acute and chronic respiratory failure with hypoxia; R65.21 Severe sepsis with septic shock; R53.2 Functional quadriplegia; J96.22 Acute and chronic respiratory failure with hypercapnia; J69.0 Pneumonitis due to inhalation of food and vomit; G92 Toxic encephalopathy; N39.0 Urinary tract infection, site not specified; N17.9 Acute kidney failure, unspecified; Z99.11 Dependence on respirator [ventilator] status; E22.2 Syndrome of inappropriate secretion of antidiuretic hormone; N13.30 Unspecified hydronephrosis; Z93.1 Gastrostomy status; Z93.0 Tracheostomy status; E87.5 Hyperkalemia; I95.9 Hypotension, unspecified; G50.0 Trigeminal neuralgia; D50.9 Iron deficiency anemia, unspecified; G35 Multiple sclerosis; D69.59 Other secondary thrombocytopenia; Z99.81 Dependence on supplemental oxygen; E03.9 Hypothyroidism, unspecified; Z99.3 Dependence on wheelchair; D63.8 Anemia in other chronic diseases classified elsewhere; Z96.9 Presence of functional implant, unspecified; F17.210 Nicotine dependence, cigarettes, uncomplicated; K80.20 Calculus of gallbladder without cholecystitis without obstruction; B96.5 Pseudomonas (aeruginosa) (mallei) (pseudomallei) as the cause of diseases classified elsewhere; B96.4 Proteus (mirabilis) (morganii) as the cause of diseases classified elsewhere; K59.00 Constipation, unspecified; N31.9 Neuromuscular dysfunction of bladder, unspecified; R13.10 Dysphagia, unspecified
CPT/HCPCS: 36415; 36430; 36511; 36600; 71045-TC-FY; 71046-TC-FY; 74019-TC-FY; 76705-TC; 80048; 80053; 81003; 82272; 82803; 82962; 83540; 83550; 83605; 83735; 84100; 84439; 84443; 84484; 85025; 85027; 85610; 85730; 86078; 86850; 86900; 86901; 86922; 87040; 87070; 87077; 87086; 87186; 87205; 87899; 93005; 93010; 94002; 97161-GP; 99285-25; G0480; J0131; J1439; J1644; J1756; J7030; P9038; P9058

== ENCOUNTER 2019-01-19 10:11 | Inpatient (IN) | payer OTHER ==
[2019-01-19 10:21] VITALS: BMI 25.8
--- NOTE | 2019-01-19 10:36 | PDOC ---
History of Present Illness - General Chief Complaint: G Tube Problem Stated Complaint: G TUBE REPLACE Time Seen by Provider: 01/19/19 10:33 History Source: Patient, Family - History of Present Illness Initial Comments: 01/19/19 23:26 Geetha Wood is a 53 y/o woman with hx of advanced MS with resultant functional quadriplegia, tracheostomy tube, peg tube presenting today after her peg tube dislodged this morning. She is accompanied by her mother and her home health aid. Her mother reports that the peg tube was dislodged when they attempted to turn her his morning. She reports that the tube was initially placed approx 8 months back. She reports that the tube needed to be replaced shortly after its initial insertion after it became clogged, but that there has been no complication with the peg tube since then. Peg tube is a size 16 fr. She denies any symptoms at this time - no fevers, chills, confusion, pain anywhere, shortness of breath. Past History - Past Medical History Allergies/Adverse Reactions: Allergies Allergy/AdvReac Type Severity Reaction Status Date / Time chloral hydrate Allergy Intermediate Rash Verified 10/12/18 12:02 [Chloral Hydrate] azathioprine [From Imuran] Allergy Rash Verified 10/12/18 12:02 azathioprine sodium Allergy Rash Verified 10/12/18 12:02 [From Imuran] adhesive tape AdvReac Severe sensitivity Verified 10/12/18 12:02 to glue adhesive AdvReac Unknown Verified 10/12/18 12:02 Home Medications: Ambulatory Orders Clonazepam [Klonopin] 0.5 mg PO BID 10/12/18 Loratadine 10 mg PO DAILY 10/12/18 Pregabalin [Lyrica -] 150 mg PO BID 10/12/18 Sertraline HCl [Zoloft] 100 mg PO DAILY 10/12/18 Ursodiol [Actigal -] 300 mg PO BID 10/12/18 Amino Acids/Protein Hydrolys [Prosource No Carb Liquid Pkt] 30 ml PO BID@0800, 1730 packet 10/25/18 Docusate Liquid [Colace Liquid -] 100 mg PO DAILY PRN ud 10/25/18 Nystatin Ointment [Mycostatin Ointment -] 1 applic TP BID #60 gr 10/25/18 Pregabalin [Lyrica -] 150 mg PO TID #90 capsule MDD 3 10/25/18 Nortriptyline HCl [Pamelor -] 25 mg PO BID #60 capsule 11/03/18 Anemia: Yes Asthma: No Cancer: No Cardiac Disorders: No CVA: No COPD: No CHF: No DVT: No Dementia: No (M.S,TRIG.NEUROLAGIA) Diabetes: No GI Disorders: Yes Disorders: Yes (baclofen implant, recurrent UTI, chronic perera catheter) HTN: Yes Hypercholesterolemia: No Liver Disease: No Seizures: Yes Thyroid Disease: Yes (Hypothyroidism) - Surgical History Abdominal Surgery: Yes (BACLOFEN PUMP) Appendectomy: Yes (GASTRIC FEEDING TUBE) Cardiac Surgery: No Cholecystectomy: No GI Surgery: (BACLOFEN IMPLANT) Lung Surgery: Yes (TRACHEOSTOMY) Neurologic Surgery: No Orthopedic Surgery: No - Immunization History Immunization Up to Date: Yes - Psycho Social/Smoking Cessation Hx Smoking Status: No Smoking History: Never smoked Have you smoked in the past 12 months: No Number of Cigarettes Smoked Daily: 0 Cigars Per Day: 0 Information on smoking cessation initiated: No Hx Alcohol Use: No Drug/Substance Use Hx: No Substance Use Type: None Hx Substance Use Treatment: No Review of Systems - Review of Systems Able to Perform ROS?: Yes Comments:: 01/19/19 23:33 ROS: GENERAL/CONSTITUTIONAL: No fever or chills. HEAD, EYES, EARS, NOSE AND THROAT: No change in vision. No ear pain or discharge. No sore throat. CARDIOVASCULAR: No chest pain or shortness of breath RESPIRATORY: No cough, wheezing, or hemoptysis. GASTROINTESTINAL: No nausea, vomiting, diarrhea or constipation. GENITOURINARY: No dysuria, frequency, or change in urination. MUSCULOSKELETAL: No joint or muscle swelling or pain. No neck or back pain. SKIN: No rash NEUROLOGIC: No headache, vertigo, loss of consciousness, or change in strength/ sensation. ENDOCRINE: No increased thirst. No abnormal weight change HEMATOLOGIC/LYMPHATIC: No anemia, easy bleeding, or history of blood clots. ALLERGIC/IMMUNOLOGIC: No hives or skin allergy. *Physical Exam - Vital Signs Last Vital Signs Temp Pulse Resp BP Pulse Ox 98.0 F 66 16 137/69 98 01/19/19 10:14 01/19/19 10:14 01/19/19 10:14 01/19/19 10:14 01/19/19 10:14 - Physical Exam Comments: 01/19/19 23:34 PE: GENERAL: Awake, alert, and fully oriented, in no acute distress. Wheelchair bound. Tracheostomy in place. HEAD: No signs of trauma, normocephalic, atraumatic EYES: PERRLA, EOMI, sclera anicteric, conjunctiva clear ENT: Auricles normal inspection, hearing grossly normal, nares patent, oropharynx clear without exudates. Moist mucosa NECK: Normal ROM, supple, no lymphadenopathy, JVD, or masses LUNGS: No distress, speaks full sentences, clear to auscultation bilaterally HEART: Regular rate and rhythm, normal S1 and S2, no murmurs, rubs or gallops, peripheral pulses normal and equal bilaterally. ABDOMEN: Peg tube insertion site is without any overlying erythema or tenderness. Soft, nontender, normoactive bowel sounds. No guarding, no rebound. No masses EXTREMITIES : Normal inspection, no edema. No clubbing or cyanosis SKIN: Warm, Dry, normal turgor, no rashes or lesions noted ED Treatment Course - LABORATORY CBC & Chemistry Diagram: 01/19/19 14:09 01/19/19 15:40 Medical Decision Making - Medical Decision Making 53F with hx MS, functional quadriplegia, tracheostomy, peg tube presenting after peg tube became dislodged for replacement, no signs of erythema or infection at tube insertion site. Plan: Replacement of 16 fr G tube Xray abdomen with gastrograffin injection to confirm placement Dispo: Discharge --- Initial O2% to low 70s despite repositioning of pulse ox, removal of nail venezuelan. She denies any shortness of breath, fevers, or any symptoms at this time. Plan for 15 lpm O2 via trach. --- G tube replaced successfully with 16 fr. Confirmatory xrays completed and reviewed. --- O2% remains persistently low to low 80s despite oxygen supplementation. Plan for ABG --- ABG notable for pH 7.25, CO2 80.3 (baseline 40s from prior ABGs), HCO3 - 33.7, consistent with chronic respiratory acidosis with compensatory metabolic alkalosis. Plan for CBC, CMP, cardiac profile, EKG, CXR --- Repeat CO2 (via CBG) - 50.6 Plan for ventilator placement for control of breathing rate --- Ventilator placed by respiratory therapy. Rate to 15. --- CBC notable for bandemia CXR notable for infiltrate of R lung Given persistent hypoxia, CO2 retention, bandemia, differential includes pneumonia, CAP vs ventilator associated (she uses a ventilator every night to sleep). Plan for repeat ABG, inpatient admission. Zosyn, Vancomycin ordered for pseudomonal, staph coverage. --- Repeat ABG pending. Patient signed out to Dr. Gong during shift change. Discharge - Discharge Information Problems reviewed: Yes Clinical Impression/Diagnosis: Ventilator associated pneumonia, Chronic hypercapnic respiratory failure Condition: Stable - Admission Yes - Follow up/Referral - Patient Discharge Instructions - Post Discharge Activity
[2019-01-19 13:12] LABS: ALLENS TEST POSITIVE
[2019-01-19 13:13] LABS: ARTERIAL BLOOD GAS pH 7.25 (7.35-7.45)
[2019-01-19 13:14] LABS: ARTERIAL BLOOD GAS BASE EXCESS 4.9 meq/l (-2-2); ARTERIAL BLOOD GAS PO2 129 mmHg (80-100); CARBOXYHEMOGLOBIN 1.1 % (0-2)
[2019-01-19 13:19] LABS: ARTERIAL BLOOD GAS PCO2 80.3 mmHg (35-45)
[2019-01-19 14:48] LABS: HEMATOCRIT 31.7 % (32.4-45.2); HEMOGLOBIN 10.5 GM/dL (10.7-15.3); MCH 32.6 pg (25.7-33.7); MCHC 33.2 g/dl (32.0-36.0); MEAN CELL VOLUME 98.4 fl (80-96); MEAN PLT VOLUME 10.8 fl (7.5-11.1); PLATELET COUNT 138 K/MM3 (134-434); RBC 3.22 M/mm3 (3.60-5.2); RDW 16.5 % (11.6-15.6); WHITE BLOOD COUNT 7.3 K/mm3 (4.0-10.0)
--- NOTE | 2019-01-19 15:20 | PDOC ---
Documentation entered by Mely Poon SCRIBE, acting as scribe for Ryan Pimentel MD. Ryan Pimentel MD: This documentation has been prepared by the Cleve de jesus Nirvannie, SCRIBE, under my direction and personally reviewed by me in its entirety. I confirm that the documentation accurately reflects all work, treatment, procedures, and medical decision making performed by me. Attending Attestation - Resident Resident Name: AnaeloisadaveKranthi - ED Attending Attestation I have performed the following: I have examined & evaluated the patient, The case was reviewed & discussed with the resident, I agree w/resident's findings & plan, Exceptions are as noted - HPI HPI: 01/19/19 12:26 The patient is a 53 year old female, with a significant past medical history of MS (s/p trach on vent), functional quadriplegia, HTN, HLD, who presents to the emergency department with a dislodged 16-Khmer G-tube. Pt gets pills crushed through her tube. She denies recent F/C, chest pain or shortness of breath, denies abd pain, N/V/D , focal weakness or numbness. Allergies: chloral hydrate, azathioprine, azathioprine sodium, adhesive Primary Care Physician: Dr. Anne Lopez Neurologist: Dr. Conroy - Physicial Exam PE: 01/19/19 15:16 agree with resident exam - Medical Decision Making 01/19/19 15:16 53-year-old female with MS, functionally quadriplegic, trach, PEG presents to the emergency department with dislodged PEG tube. PEG tube was replaced without complication. Post replacement film with gastro confirms good placement of the tube. Patient noted to be hypoxic to the mid 80s, but unable to obtain a good waveform. As such an ABG was sent that revealed acidosis to 7.280 concerning for hypercarbic respiratory acidosis. Patient denies shortness of breath and states she is asymptomatic. Will check basic labs, chest x-ray and venous blood gas and reassess. 01/19/19 17:43 VBG with persistent acidosis Pt placed on vent CXR with infiltrate to R hemithorax Blood cultures ordered, covered with Vanc/Zosyn for MRSA and pseudomonal empiric coverage Plan to admit pt for PNA and respiratory failure Rpt ABG ordered for 6:15pm Case signed out to evening attending Dr. Alvarado for further mgmt/dispo
[2019-01-19 15:32] LABS: PLATELET ESTIMATE DECREASED
[2019-01-19 15:44] LABS: VENOUS PC02 55.6 mmHg (38-52); VENOUS PH 7.23 (7.31-7.41); VENOUS PO2 97.5 mmHg (28-48)
[2019-01-19 15:52] LABS: ANISOCYTOSIS 2+; MACROCYTOSIS 0
[2019-01-19 16:34] LABS: ALBUMIN 2.4 g/dl (3.4-5.0); BILIRUBIN,TOTAL 0.1 mg/dL (0.2-1); BLOOD UREA NITROGEN 31.6 mg/dL (7-18); CALCIUM 9.5 mg/dL (8.5-10.1); CREATININE 0.4 mg/dL (0.55-1.3); POTASSIUM 5.6 mmol/L (3.5-5.1); TOT PROT 8.2 g/dl (6.4-8.2)
[2019-01-19] MEDS ORDERED: PREGABALIN 75 MG CAPSULE PO ONE (17:10)
[2019-01-19] MEDS ORDERED: PREGABALIN 50 MG CAPSULE ONE (17:19)
[2019-01-19] MEDS ORDERED: PREGABALIN 100 MG CAPSULE ONE (17:20)
[2019-01-19] MEDS ORDERED: PREGABALIN 75 MG CAPSULE NR ONE (17:26)
[2019-01-19] MEDS ORDERED: VANCOMYCIN 1,000 MG in DEXTROSE 5%-WATER - 250 ML IVPB ONE (17:35)
[2019-01-19] MEDS ORDERED: PIPERACILLIN/TAZOB 4.5 GM 4.5 GM in DEXTROSE 5%-WATER - 100 ML IVPB ONE (17:35)
[2019-01-19] MEDS ORDERED: VANCOMYCIN 1 GRAM (PRE-DOCKED) 1,000 MG/250 ML BAG IVPB ONE (17:46)
[2019-01-19] MEDS ORDERED: PIPERACILLIN/TAZOB 4.5 GM 4.5 GM/100 ML BAG IVPB ONE (17:46)
[2019-01-19 19:24] LABS: ARTERIAL BLD GAS O2 SATURATION 93.6 % (95-98); ARTERIAL BLOOD GAS BASE EXCESS 1.9 meq/l (-2-2); ARTERIAL BLOOD GAS PO2 76.4 mmHg (80-100); ARTERIAL BLOOD GAS pH 7.25 (7.35-7.45)
[2019-01-19 19:28] LABS: ALLENS TEST POSITIVE
[2019-01-19 19:31] LABS: ARTERIAL BLOOD GAS PCO2 73.4 mmHg (35-45)
[2019-01-19] MEDS ORDERED: SODIUM CHLORIDE 1,000 ML IV SCH (20:00)
--- NOTE | 2019-01-19 20:23 | PDOC ---
*Physical Exam - Vital Signs Last Vital Signs Temp Pulse Resp BP Pulse Ox 98.0 F 60 15 87/43 L 97 01/19/19 10:14 01/19/19 20:00 01/19/19 20:00 01/19/19 20:00 01/19/19 20:00 ED Treatment Course - LABORATORY CBC & Chemistry Diagram: 01/19/19 14:09 01/19/19 15:40 - ADDITIONAL ORDERS Additional order review: Laboratory Results 01/19/19 01/19/19 01/19/19 19:05 15:40 14:09 Anticoagulation Therapy No Result Required. Puncture Site Left radial ABG pH 7.25 L ABG pCO2 at Pt Temp 73.4 H* ABG pO2 at Pt Temp 76.4 L ABG HCO3 30.8 H ABG O2 Sat (Measured) 93.6 L ABG O2 Content 16.6 ABG Base Excess 1.9 Howard Test Positive VBG pH POC VBG pCO2 POC VBG pO2 VBG HCO3 VBG O2 Sat (Tim) VBG Base Excess Carboxyhemoglobin Methemoglobin O2 Delivery Device No Result Required. Oxygen Flow Rate No Result Required. Vent Mode No Result Required. Vent Rate No Result Required. Mechanical Rate No Result Required. Pressure Support Vent No Result Required. Sodium 136 Cancelled Potassium 5.6 H Cancelled Chloride 102 Cancelled Carbon Dioxide 34 H Cancelled Anion Gap 1 L Cancelled BUN 31.6 H Cancelled Creatinine 0.4 L Cancelled Est GFR (CKD-EPI)AfAm 136.86 Cancelled Est GFR (CKD-EPI)NonAf 118.08 Cancelled Random Glucose 63 L Cancelled Calcium 9.5 Cancelled Total Bilirubin 0.1 L Cancelled AST 50 H Cancelled ALT 55 Cancelled Alkaline Phosphatase 266 H Cancelled Creatine Kinase Cancelled Troponin I Cancelled Total Protein 8.2 Cancelled Albumin 2.4 L Cancelled 01/19/19 01/19/19 13:10 12:58 Anticoagulation Therapy No Result Required. Puncture Site Left radial ABG pH 7.25 L ABG pCO2 at Pt Temp 80.3 H* ABG pO2 at Pt Temp 129 H ABG HCO3 33.7 H ABG O2 Sat (Measured) 98.0 ABG O2 Content 14.0 ABG Base Excess 4.9 H Howard Test Positive VBG pH 7.23 L POC VBG pCO2 55.6 H POC VBG pO2 97.5 H VBG HCO3 22.5 L VBG O2 Sat (Tim) 95.9 H VBG Base Excess -4.7 L Carboxyhemoglobin 1.1 Methemoglobin < 1.0 O2 Delivery Device Trach collar Oxygen Flow Rate 35% Vent Mode No Result Required. Vent Rate No Result Required. Mechanical Rate No Result Required. Pressure Support Vent No Result Required. Sodium Potassium Chloride Carbon Dioxide Anion Gap BUN Creatinine Est GFR (CKD-EPI)AfAm Est GFR (CKD-EPI)NonAf Random Glucose Calcium Total Bilirubin AST ALT Alkaline Phosphatase Creatine Kinase Troponin I Total Protein Albumin 01/19/19 14:09 RBC 3.22 L MCV 98.4 H MCHC 33.2 RDW 16.5 H MPV 10.8 Neutrophils % Warehouse Checker Lymphocytes % Warehouse Checker Monocytes % Warehouse Checker Eosinophils % Warehouse Checker Basophils % Warehouse Checker - Medications Given in the ED: ED Medications Discontinued Medications Generic Name Dose Route Start Last Admin Trade Name Freq PRN Reason Stop Dose Admin Vancomycin HCl 1,000 mg/ 250 mls @ 250 mls/hr 01/19/19 17:35 01/19/19 18:49 Dextrose IVPB 01/19/19 18:34 250 mls/hr ONCE ONE Administration Protocol Piperacillin Sod/Tazobactam 100 mls @ 200 mls/hr 01/19/19 17:35 01/19/19 17: 53 Sod 4.5 gm/ Dextrose IVPB 01/19/19 18:04 200 mls/hr ONCE ONE Administration Protocol Pregabalin 150 mg 01/19/19 17:10 01/19/19 17:36 Lyrica - PO 01/19/19 17:11 150 mg ONCE ONE Administration Pregabalin 150 mg 01/19/19 17:26 01/19/19 17:37 Lyrica - NR 01/19/19 17:27 150 mg ONCE ONE Administration Medical Decision Making - Medical Decision Making 01/19/19 21:09 BP dropped to the 60's which seems to happen whenever she falls asleep. Correcting pressure with slow rate NS, now 100 systolic. Spoke to admitting hospitalist who requires ICu monitoring overnight. ICU to come see the patient. Discharge - Discharge Information Problems reviewed: Yes Clinical Impression/Diagnosis: Ventilator associated pneumonia, Chronic hypercapnic respiratory failure Condition: Stable - Follow up/Referral - Patient Discharge Instructions - Post Discharge Activity
--- NOTE | 2019-01-19 20:44 | HP ---
Admitting History and Physical - Primary Care Physician PCP: Anne Lopez - Admission Chief Complaint: Dislodged PEG, Respiratory Failure History of Present Illness: This is a 53 year old woman with a PMHx of MS (s/p trach, vent dependent), Functional Quadriplegia, HTN, HLD. Who presents to the ED for a dislodged 16- Serbian G-tube. Pt gets pills crushed through her tube. During her course in the ED her PEG was replaced and confirmed via CT. Later during the visit the patient became hypoxic 80's. Her ABG showed ph 7.25, pCo2 80.3. Her Chest Xray- R- infiltrate with fluid. Patient later became hypotensive 70/43, fluid bolus was given, with ABX for PNA. 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 No: Asthma, Bronchitis , Cancer, COPD, Pulmonary Embolus, Pulmonary Fibrosis, Sleep Apnea Gastrointestinal: Yes: Constipation (chronic) Hepatobiliary: Yes: Cholelithiasis Renal/: Yes: Neurogenic Bladder ( neurogenic bladder, chronic perera catheter) ...LMP: 06/07/12 Heme/Onc: Yes: Anemia Infectious Disease: Yes: Other (pneumonia, uti treated by urologist) Musculoskeletal: Yes: Other (Quadraplegia) Dermatology: Yes: Other (chronic decubitus followed by wound care) - Past Surgical History Past Surgical History: Yes: Colonoscopy - Smoking History Smoking history: Never smoked Have you smoked in the past 12 months: No Aproximately how many cigarettes per day: 0 - Alcohol/Substance Use Hx Alcohol Use: No History of Substance Use: reports: None - Social History Usual Living Arrangement: Yes: With Parent ADL: Support Services History of Recent Travel: No Home Medications - Allergies Allergies/Adverse Reactions: Allergies Allergy/AdvReac Type Severity Reaction Status Date / Time chloral hydrate Allergy Intermediate Rash Verified 10/12/18 12:02 [Chloral Hydrate] azathioprine [From Imuran] Allergy Rash Verified 10/12/18 12:02 azathioprine sodium Allergy Rash Verified 10/12/18 12:02 [From Imuran] adhesive tape AdvReac Severe sensitivity Verified 10/12/18 12:02 to glue adhesive AdvReac Unknown Verified 10/12/18 12:02 - Home Medications Home Medications: Ambulatory Orders Clonazepam [Klonopin] 0.5 mg PO BID 10/12/18 Loratadine 10 mg PO DAILY 10/12/18 Pregabalin [Lyrica -] 150 mg PO BID 10/12/18 Sertraline HCl [Zoloft] 100 mg PO DAILY 10/12/18 Ursodiol [Actigal -] 300 mg PO BID 10/12/18 Amino Acids/Protein Hydrolys [Prosource No Carb Liquid Pkt] 30 ml PO BID@0800, 1730 packet 10/25/18 Docusate Liquid [Colace Liquid -] 100 mg PO DAILY PRN ud 10/25/18 Nystatin Ointment [Mycostatin Ointment -] 1 applic TP BID #60 gr 10/25/18 Pregabalin [Lyrica -] 150 mg PO TID #90 capsule MDD 3 10/25/18 Nortriptyline HCl [Pamelor -] 25 mg PO BID #60 capsule 11/03/18 Home Medications (free text): Tramadol 50mg QID (verified on Prescription Monitoring Program) Family Medical History Family History: Unable to Obtain Review of Systems Unable to obtain ROS, reason: Clinical Condition - Review of Systems Constitutional: reports: Other (trach- vent dependent) Gastrointestinal: reports: Other (dislodged PEG) Physical Examination Vital Signs: Vital Signs Temperature 98.0 F 01/19/19 10:14 Pulse Rate 60 01/19/19 20:00 Respiratory Rate 15 01/19/19 20:00 Blood Pressure 87/43 L 01/19/19 20:00 O2 Sat by Pulse Oximetry (%) 97 01/19/19 20:00 Constitutional: Yes: Anxious, Obese, Other Eyes: Yes: Conjunctiva Clear, EOM Intact, PERRL HENT: Yes: WNL, Atraumatic, Normocephalic Neck: Yes: Supple, Other (trach- vent) Cardiovascular: Yes: Regular Rate and Rhythm, S1, S2 Respiratory: Yes: Diminished, Other (trach- vent dependent) Gastrointestinal: Yes: Normal Bowel Sounds, Soft ...Rectal Exam: Yes: Deferred Renal/: Yes: Perera Present Breast(s): Yes: WNL Extremities: Yes: WNL Edema: No Peripheral Pulses WNL: Yes Neurological: Yes: Alert Psychiatric: Yes: Alert Labs: CBC, BMP 01/19/19 14:09 01/19/19 15:40 Problem List - Problems (1) Acute on chronic respiratory failure with hypoxia and hypercapnia Code(s): J96.21 - ACUTE AND CHRONIC RESPIRATORY FAILURE WITH HYPOXIA; J96.22 - ACUTE AND CHRONIC RESPIRATORY FAILURE WITH HYPERCAPNIA (2) Aspiration pneumonia Code(s): J69.0 - PNEUMONITIS DUE TO INHALATION OF FOOD AND VOMIT (3) Hypotension Code(s): I95.9 - HYPOTENSION, UNSPECIFIED (4) Gastrostomy tube obstruction Code(s): K94.29 - OTHER COMPLICATIONS OF GASTROSTOMY (5) Functional 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 (6) Multiple sclerosis Code(s): G35 - MULTIPLE SCLEROSIS (7) Trigeminal neuralgia Code(s): G50.0 - TRIGEMINAL NEURALGIA (8) Tracheostomy dependence Code(s): Z93.0 - TRACHEOSTOMY STATUS (9) Tracheostomy care Code(s): Z43.0 - ENCOUNTER FOR ATTENTION TO TRACHEOSTOMY (10) Presence of intrathecal baclofen pump Code(s): Z98.89 - OTHER SPECIFIED POSTPROCEDURAL STATES * DO NOT USE * Assessment/Plan This is a 53 y/o woman with a PMHx of MS s/p trach/Peg placement, Functional Quadriplegia, HTN, HLD. Admitted for Acute on Chronic Respiratory Failure with Hypercapnia and Hypoxia, Pneumonia, for further evaluation of their emergent condition. Problems: Acute on Chronic Respiratory Failure with Hypercapnia and Hypoxia Pneumonia Hypotension Plan: Admit 1. Acute on Chronic Respiratory Failure with Hypoxia and Hypercapnia Likely worsened by Pneumonia vs Aspiration from drinking ensure Continue vent settings with Trach ABG- 7.25/80.3/129/33.7, repeat ABG- 7.25/73.4/76.4/30.8 Respiratory Acidosis likely worsened by sedative medications Appreciate Pulmonology consult Aspiration Precautions Monitor vitals 2. Pneumonia Chest Xray report- progressive R- infiltrate with fluid, increased markings in L - hemithorax with some congestive changes, ?atelectasis L-base CURB65 Score 2 qSOFA 1 Blood Cultures- pending Urine Culture-pending Vancomycin and Zosyn given in ED, will continue Appreciate ID Consult Monitor CBC, BMP Will add Urine Legionella 3. Hypotension Likely secondary to Pneumonia vs Medication CXR- R infiltrate with fluid Patient medicated with Lyrica x2 doses in ED Fluid Resuscitation initiated in ED, with some improvement Maintain MAP > 65 Will hold sedating meds, BP meds for now 4. Functional Quadriplegia Complete immobility due to MS Requires total care Turn Q2h Mendez Lift as needed Heel protectors Fall Precautions FEN- Replete lytes prn, Hold PEG feedings for now DVT ppx- TEDs, SCDs, Heparin SQ Code Status: Full Code Dispo: Requires Inpatient Care Addendum: Patient was not accepted to ICU after evaluation by Dr. Reuben Marin , ICU resident. Will be admitted to [address] for Trach/Vent support Visit type - Emergency Visit Emergency Visit: Yes ED Registration Date: 01/19/19 Care time: The patient presented to the Emergency Department on the above date and was hospitalized for further evaluation of their emergent condition. - New Patient This patient is new to me today: Yes Date on this admission: 01/19/19 - Critical Care Critical Care patient: Yes Total Critical Care Time (in minutes): 35 Critical Care Statement: The care of this patient involved high complexity decision making to prevent further life threatening deterioration of the patient 's condition and/or to evaluate & treat vital organ system(s) failure or risk of failure.
[2019-01-19] MEDS ORDERED: MUPIROCIN 2% TOPICAL OINTMENT FOR DECOLONIZATION NS SCH (22:00)
[2019-01-19] MEDS ORDERED: CHLORHEXIDINE GLUCONATE 4% CLEANSER FOR DECOLONIZATION TP SCH (22:00)
--- NOTE | 2019-01-19 22:56 | CONSULT ---
Consult Consult Specialty:: ICU - History of Present Illness History of Present Illness: 53F with a PMH of MS (s/p trach on vent), functional quadriplegia, HTN, HLD who presented to the ER for PEG replacement. During ER stay, pt had PEG tube replaced. She was also noted to be hypoxic and hypotensive on ED evaluation. On my evaluation, pt denies CP, SOB, fever, chills, nausea, vomiting, cough, abdominal pain, dysuria, numbness, tingling. 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 No: Asthma, Bronchitis , Cancer, COPD, Pulmonary Embolus, Pulmonary Fibrosis, Sleep Apnea Gastrointestinal: Yes: Constipation (chronic) Hepatobiliary: Yes: Cholelithiasis Renal/: Yes: Neurogenic Bladder ( neurogenic bladder, chronic perera catheter) ...LMP: 06/07/12 Infectious Disease: Yes: Other (pneumonia, uti treated by urologist) Musculoskeletal: Yes: Other (Quadraplegia) Dermatology: Yes: Other (chronic decubitus followed by wound care) Additional Medical History: trigeminal neuralgia, baclofen pump. chronic decubitus followed by wound care. neurogenic bladder, chronic perera catheter. IR placed G tube - Past Surgical History Past Surgical History: Yes: Colonoscopy - Alcohol/Substance Use Hx Alcohol Use: No History of Substance Use: reports: None - Smoking History Smoking history: Never smoked Have you smoked in the past 12 months: No Aproximately how many cigarettes per day: 0 - Social History Usual Living Arrangement: With Parent (mother) ADL: Support Services History of Recent Travel: No Home Medications - Allergies Allergies/Adverse Reactions: Allergies Allergy/AdvReac Type Severity Reaction Status Date / Time chloral hydrate Allergy Intermediate Rash Verified 10/12/18 12:02 [Chloral Hydrate] azathioprine [From Imuran] Allergy Rash Verified 10/12/18 12:02 azathioprine sodium Allergy Rash Verified 10/12/18 12:02 [From Imuran] adhesive tape AdvReac Severe sensitivity Verified 10/12/18 12:02 to glue adhesive AdvReac Unknown Verified 10/12/18 12:02 - Home Medications Home Medications: Ambulatory Orders Clonazepam [Klonopin] 0.5 mg PO BID 10/12/18 Loratadine 10 mg PO DAILY 10/12/18 Pregabalin [Lyrica -] 150 mg PO BID 10/12/18 Sertraline HCl [Zoloft] 100 mg PO DAILY 10/12/18 Ursodiol [Actigal -] 300 mg PO BID 10/12/18 Amino Acids/Protein Hydrolys [Prosource No Carb Liquid Pkt] 30 ml PO BID@0800, 1730 packet 10/25/18 Docusate Liquid [Colace Liquid -] 100 mg PO DAILY PRN ud 10/25/18 Nystatin Ointment [Mycostatin Ointment -] 1 applic TP BID #60 gr 10/25/18 Pregabalin [Lyrica -] 150 mg PO TID #90 capsule MDD 3 10/25/18 Nortriptyline HCl [Pamelor -] 25 mg PO BID #60 capsule 11/03/18 Review of Systems - Review of Systems Constitutional: denies: Chills, Fever HENT: denies: Difficult Swallowing, Throat Pain Cardiovascular: denies: Chest Pain, Shortness of Breath Gastrointestinal: denies: Abdominal Pain, Nausea, Vomiting Genitourinary: reports: Other (Perera in place) Integumentary: reports: Wound (Chronic) Neurological: denies: Change in LOC, Change in Speech, Confusion Physical Exam Vital Signs: Vital Signs Temperature 98.0 F 01/19/19 10:14 Pulse Rate 60 01/19/19 21:00 Respiratory Rate 16 01/19/19 21:26 Blood Pressure 104/45 L 01/19/19 21:00 O2 Sat by Pulse Oximetry (%) 99 01/19/19 21:00 Constitutional: Yes: Well Nourished, No Distress, Calm. No: Anxious HENT: Yes: Atraumatic, Normocephalic Neck: Yes: Trachea Midline, Other (Trached) Cardiovascular: Yes: WNL, Regular Rate and Rhythm, S1. No: Bradycardia, Tachycardia Respiratory: Yes: Diminished (in b/l bases), Mechanically Ventilated, Rales, Rhonchi Gastrointestinal: Yes: Soft. No: Abdomen, Obese, Tenderness, Tenderness, Epigastrium, Tenderness, Rebound ...Rectal Exam: Yes: Deferred Renal/: Yes: Other (Perera in place) Extremities: No: Cold, Cool, Erythema, Internal Rotation Neurological: Yes: Alert, Oriented. No: Lethargy, Loss of Sensation Labs: CBC, BMP 01/19/19 14:09 01/19/19 15:40 Assessment/Plan 53F with a PMH of MS (s/p trach on vent), functional quadriplegia, HTN, HLD who became acutely hypotensive in ER and was noted to have findings on CXR. ID - CXR shows PNA on R with interstitial markings on L side - No WBC - Hypotension resolved w/ fluid resuscitation - Pt not tachycardic - Given vanc/zosyn in ED - Concern for sepsis as pt has source w/ hypotension Cards - Hypotension resolved w/ fluid resuscitation - Not tachycardic - Does not require pressors - Hemodynamically stable on my evaluation Pulm - CXR shows infiltrates concerning for PNA - ABG shows hypercapnea, resp rate increased in pt GI - PEG tube replaced in ED Dispo Pt currently hemodynamically stable and does not meet criteria for the ICU. If the patient's hemodynamic status changes or any new concerns arise, please feel free to consult the ICU again. Thank you for the consultative opportunity.
[2019-01-20] MEDS: ACETAMINOPHEN 650 MG/20.3 ML ORAL SOLUTION (CUPS) GT PRN (02:15)
[2019-01-20] MEDS ORDERED: PIPERACILLIN/TAZOB 4.5 GM 4.5 GM/100 ML BAG IVPB ONE (04:53)
[2019-01-20] MEDS: PIPERACILLIN/TAZOB 4.5 GM 4.5 GM in DEXTROSE 5%-WATER 100 ML IVPB SCH ×4 (04:58→17:21)
[2019-01-20 05:37] LABS: BASO % 0.3 % (0-2.0); EOS % 3.7 % (0-4.5); HEMATOCRIT 30.1 % (32.4-45.2); HEMOGLOBIN 9.7 GM/dL (10.7-15.3); LYMPH % 8.9 % (8-40); MCHC 32.2 g/dl (32.0-36.0); MEAN CELL VOLUME 99.3 fl (80-96); MEAN PLT VOLUME 9.7 fl (7.5-11.1); MONO % 5.5 % (3.8-10.2); NEUT % 81.6 % (42.8-82.8); PLATELET COUNT 51 K/MM3 (134-434); RBC 3.03 M/mm3 (3.60-5.2); RDW 16.6 % (11.6-15.6); WHITE BLOOD COUNT 4.9 K/mm3 (4.0-10.0)
[2019-01-20 06:06] LABS: BLOOD UREA NITROGEN 29.1 mg/dL (7-18); CREATININE 0.5 mg/dL (0.55-1.3); MAGNESIUM 2.4 mg/dL (1.8-2.4); PHOSPHOROUS 4.8 mg/dL (2.5-4.9); POTASSIUM 5.2 mmol/L (3.5-5.1)
[2019-01-20] MEDS ORDERED: PIPERACILLIN/TAZOB 4.5 GM 4.5 GM in DEXTROSE 5%-WATER 100 ML IVPB SCH ×2 (06:30→10:00)
[2019-01-20 06:34] LABS: EPI CELLS 2.4 /HPF (0-5/HPF); HYALINE CASTS 0 /lpf (0-8); URINE APPEARANCE CLEAR; URINE BACTERIA 52.5 /hpf (NEGATIVE); URINE BILIRUBIN NEGATIVE (NEGATIVE); URINE COLOR YELLOW; URINE GLUCOSE (UA) NEGATIVE (NEGATIVE); URINE KETONE NEGATIVE (NEGATIVE); URINE LEUK ESTERASE 2+ (NEGATIVE); URINE NITRITE POSITIVE (NEGATIVE); URINE PROTEIN TRACE (NEGATIVE); URINE RBC 1 /hpf (0-4); URINE UROBILINOGEN 0.2 mg/dL (0.2-1.0); URINE WBC 7 /hpf (0-5)
[2019-01-20 06:55] LABS: ARTERIAL BLD GAS O2 SATURATION 97.5 % (95-98); ARTERIAL BLOOD GAS BASE EXCESS 2.5 meq/l (-2-2)
[2019-01-20 06:58] LABS: ARTERIAL BLOOD GAS PO2 108 mmHg (80-100); ARTERIAL BLOOD GAS pH 7.26 (7.35-7.45)
[2019-01-20 06:59] LABS: ALLENS TEST POSITIVE
[2019-01-20 07:02] LABS: ARTERIAL BLOOD GAS PCO2 70.6 mmHg (35-45)
[2019-01-20] MEDS ORDERED: VANCOMYCIN 1,000 MG in DEXTROSE 5%-WATER - 250 ML IVPB SCH (10:00)
--- NOTE | 2019-01-20 10:40 | RAPID ---
Physical Examination Vital Signs: Rapid response was called to 5S at 10:37. Rapid response team arrived promptly and told by nurse that pt was hypoxic at 68, appearing in acute distress. Suction was started and ~7 mucous plugs were removed. Pt's saturation and breathing imrpoved to 90s. Vitals: BP: 165/82 HR: 78 O2: 94 General: Laying in bed, mild distress Heart: Normal S1, S2, no murmurs Lungs: CTAB Abd: Nontender, normoactive bowel sounds Legs: no edema >>Acute hypoxia 2/2 aspiration of mucous plug. ABG and CXR ordered stat. Pulmonary consulted for adjustments to vent settings. Primary team notified. Labs: CBC, BMP 01/20/19 05:15 01/20/19 05:15
[2019-01-20 11:03] LABS: ARTERIAL BLD GAS O2 SATURATION 93.3 % (95-98); ARTERIAL BLOOD GAS BASE EXCESS 1.6 meq/l (-2-2); ARTERIAL BLOOD GAS PO2 75.4 mmHg (80-100); ARTERIAL BLOOD GAS pH 7.25 (7.35-7.45)
[2019-01-20 11:05] LABS: ALLENS TEST POSITIVE
[2019-01-20 11:07] LABS: ARTERIAL BLOOD GAS PCO2 72.4 mmHg (35-45)
--- NOTE | 2019-01-20 11:34 | PN ---
Progress Note, Physician Chief Complaint: Hypotension Hypoxia Multiple Sclerosis History of Present Illness: Previous notes and events reviewed awake and alert Rapid Response called for patient for Hypoxia with SpO2 68%, RT at bedside with ambubag and intermittent suctioniong, suctioning show thick blood tinge-brown colored mucous, SpO2 eventually increase to 99%, placed back on mechanical vent , CXR and ABG ordered STAT patient found to be hypothermic with rectal temp 95.2F, kinsey hugger ordered, patient and family refusing kinsey hugger placement Spoke with Pulmonary and Vent setting changed with TV 500, mucomyst ordered with neb treatment - Current Medication List Current Medications: Active Medications Acetaminophen (Tylenol Oral Solution -) 650 mg GT Q6H PRN PRN Reason: PAIN LEVEL 6-10 Last Admin: 01/20/19 02:15 Dose: 650 mg Chlorhexidine Gluconate (Hibiclens For Decolonization -) 1 applic TP HS CATHERINE Sodium Chloride (Normal Saline -) 1,000 mls @ 150 mls/hr IV ASDIR CATHERINE Last Admin: 01/19/19 20:09 Dose: 150 mls/hr Piperacillin Sod/Tazobactam (Sod 4.5 gm/ Dextrose) 100 mls @ 200 mls/hr IVPB Q8H-IV CATHERINE; Protocol Last Admin: 01/20/19 04:58 Dose: 200 mls/hr Vancomycin HCl 1,000 mg/ (Dextrose) 250 mls @ 200 mls/hr IVPB Q24H CATHERINE; Protocol Mupirocin (Bactroban Ointment (For Decolonization) -) 1 applic NS BID CATHERINE Stop: 01/24/19 21:59 - Objective Vital Signs: Vital Signs Temperature 98.9 F 01/20/19 09:26 Pulse Rate 75 01/20/19 10:11 Respiratory Rate 01/20/19 10:11 Blood Pressure 99/65 01/20/19 09:26 O2 Sat by Pulse Oximetry (%) 97 01/20/19 10:11 Constitutional: Yes: No Distress, Calm Eyes: Yes: Conjunctiva Clear HENT: Yes: Atraumatic Neck: Yes: Other (trach) Cardiovascular: Yes: Regular Rate and Rhythm Respiratory: Yes: Regular, Mechanically Ventilated, Rhonchi Gastrointestinal: Yes: Normal Bowel Sounds, Soft Genitourinary: Yes: Raza Present Musculoskeletal: Yes: Muscle Weakness Extremities: Yes: WNL Edema: No Integumentary: Yes: Pressure Ulcer Wound/Incision: Yes: Dressing Dry and Intact Neurological: Yes: Alert, Oriented, Pre-Existing Deficit Psychiatric: Yes: Alert, Oriented Labs: CBC, BMP 01/20/19 05:15 01/20/19 05:15 Microbiology 01/20/19 06:00 Urine For Antigen Detection Legionella Antigen - Final 01/20/19 06:00 Urine For Antigen Detection Streptococcus pneumoniae Antigen (M - Final Problem List - Problems (1) Chronic hypercapnic respiratory failure Assessment/Plan: -Pulm on board -Bronchodilators -Mucomyst -Mechanically ventilated -ABGs -keep SpO2 >90% -CXR shows progressive right infiltrate with fluid -Aspiration precautions Code(s): J96.12 - CHRONIC RESPIRATORY FAILURE WITH HYPERCAPNIA (2) Functional quadriplegia Assessment/Plan: -PT -fall risk Code(s): R53.2 - FUNCTIONAL QUADRIPLEGIA (3) Hypotension Assessment/Plan: -Cardiology consult -monitor BP Code(s): I95.9 - HYPOTENSION, UNSPECIFIED (4) Hypothyroid Assessment/Plan: -TSH/T4 Code(s): E03.9 - HYPOTHYROIDISM, UNSPECIFIED (5) Sacral decubitus ulcer, stage IV Assessment/Plan: -Offloading -turn q2h -Plastic Surgery consult -Vascular consult Code(s): L89.154 - PRESSURE ULCER OF SACRAL REGION, STAGE 4 (6) Aspiration pneumonia Assessment/Plan: -ID on board -no leukocytosis -hypothermia PATIENT AND FAMILY REFUSING KINSEY HUGGER -Vancomycin, Zosyn -BC and Legionella pending -Pulm on board -Bronchodilators -Mucomyst -Mechanically ventilated -ABGs -keep SpO2 >90% -CXR shows progressive right infiltrate with fluid -Aspiration precautions -Dietary consult -COMMUTATOR INSPECTOR consult -will order LA Code(s): J69.0 - PNEUMONITIS DUE TO INHALATION OF FOOD AND VOMIT (7) Acute renal insufficiency Assessment/Plan: -Renal consult -BUN/Cr 29.1/0.5 -monitor renal function Code(s): N28.9 - DISORDER OF KIDNEY AND URETER, UNSPECIFIED (8) Cholelithiasis Assessment/Plan: -Actigal Code(s): K80.20 - CALCULUS OF GALLBLADDER W/O CHOLECYSTITIS W/O OBSTRUCTION (9) Anemia Assessment/Plan: -Hg 9.7 -monitor Hg daily -transfuse for Hg <7.0 -anemia profile Code(s): D64.9 - ANEMIA, UNSPECIFIED (10) Hypothermia Assessment/Plan: -KINSEY Hugger -PATIENT AND FAMILY REFUSING -monitor temp q4h -ICU consult Code(s): T68.XXXA - HYPOTHERMIA, INITIAL ENCOUNTER Assessment/Plan see problem list dvt ppx
[2019-01-20] MEDS ORDERED: DOCUSATE NA 100 MG/10 ML UNIT-DOSE CUPS PO PRN (12:52)
[2019-01-20 13:10] LABS: ARTERIAL BLD GAS O2 SATURATION 95.2 % (95-98); ARTERIAL BLOOD GAS BASE EXCESS 2.7 meq/l (-2-2); ARTERIAL BLOOD GAS PCO2 59.1 mmHg (35-45); ARTERIAL BLOOD GAS PO2 79.2 mmHg (80-100); ARTERIAL BLOOD GAS pH 7.33 (7.35-7.45)
[2019-01-20 13:13] LABS: ALLENS TEST POSITIVE
--- NOTE | 2019-01-20 13:28 | CONSULT ---
Admitting History and Physical - Primary Care Physician PCP: Emma Yoon - Admission History of Present Illness: Per emr- 53 year old woman with a PMHx of MS (s/p trach, vent dependent), Functional Quadriplegia, HTN, HLD. Who presents to the ED for a dislodged 16- Wolof G-tube. Pt gets pills crushed through her tube. During her course in the ED her PEG was replaced and confirmed via CT. Later during the visit the patient became hypoxic 80's. Her ABG showed ph 7.25, pCo2 80.3. Her Chest Xray- R- infiltrate with fluid. Patient later became hypotensive 70/43, fluid bolus was given, with ABX for PNA. Rapid response-hypoxic at 68, appearing in acute distress. Suctioned/7 mucous plugs were removed and saturation and breathing improved to 90s. Per family, pt has not had much of an appetite lately, receiving most nutrition/ hydration through PEG. When he eats, she enjoys shrimp, tuna on crackers, thin liquids etc. Last MBS 08/24 (-) aspiration, but quite dependent on head position. Advised if food/liquid suctioned, downgrade to nectar. PEG came out Wednesday night. Pt given Chocolate Ensure, brown suctioned from trach- Aspiration? They feel pt is feeling well, at her baseline. I have repeatedly recommended family contact [facility] to obtain a computer, controlled by head movements to insure ability to communicate functionally and control environment but they have not followed through. My concern is at some point, when she can use PMV, mouthing words are poorly intelligible, she can not use UE/hands to write/point, she will become locked in , unable to communicate. I counseled them at length again. 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 No: Asthma, Bronchitis , Cancer, COPD, Pulmonary Embolus, Pulmonary Fibrosis, Sleep Apnea Gastrointestinal: Yes: Constipation (chronic) Hepatobiliary: Yes: Cholelithiasis Renal/: Yes: Neurogenic Bladder ( neurogenic bladder, chronic perera catheter) ...LMP: 06/07/12 Heme/Onc: Yes: Anemia Infectious Disease: Yes: Other (pneumonia, uti treated by urologist) Musculoskeletal: Yes: Other (Quadraplegia) Dermatology: Yes: Other (chronic decubitus followed by wound care) - Past Surgical History Past Surgical History: Yes: Colonoscopy - Smoking History Smoking history: Never smoked Have you smoked in the past 12 months: No Aproximately how many cigarettes per day: 0 - Alcohol/Substance Use Hx Alcohol Use: No History of Substance Use: reports: None - Social History ADL: Support Services History of Recent Travel: No History - Admission Reason For Visit: RESPIRATORY ACIDOSIS/PNEUMONIA - Diagnostics X-ray: Report Reviewed - General Mental Status: Alert and Oriented, Awake and Alert, Able to Follow Commands Attention: Intact Ability to Follow Directions: Good Head/Neck Control: Needs Assist (With mother, sister and MACHINE FUR CLEANER present, head was extended when I walked in, without any awareness by her caretakers. Counseled pt 's caretakers again about head extension adversely affecting laryngeal excursion and airway protection.) - Hearing Hearing: Functional Speech Evaluation - Communication Primary Language: KHMER - Speech Characteristics Articulation: Yes: Precise - Language/Auditory Comprehension Observation: Comprehends Conversational Speech: Yes - Swallow Evaluation/Bedside Assessment Current Nutritional Intake: NPO, Other (PEG feedings not yet initiated) Dentition: Yes: Adequate Facial Symmetry at Rest: Symmetrical Facial Symmetry on Retraction: Symmetrical Against Resistance Opening: Normal Against Resistance Closing: Normal Pucker Lips: Normal Smile: Normal Lingual Movement: Normal, Symmetric Lingual Speed of Movement: Normal Lingual Movement Strgth Against Opposition: Normal Lingual Movement Characteristics: Normal Velopharyngeal Movement: Normal Laryngeal Movement: Reduced Excursion, Labored,delay initiation Labial Seal: WFL Oral Prep Time: WFL A-P Transit: WFL Timing of Swallow: Delayed Coughing/Throat Clear: Yes (vocal wetness with thin liquid.) Recommendations - Speech Evaluation, Impression/Plan Impression: Pt received Leonor Ensure at home once PEG came out, with brown suctioned from trach, likely silent aspiration. Pt has had more phlegm over last couple of days, and mucous plugs today/RR. Pt generally has most nutrition via PEG lately, with limited appetite. Eats reg foods/thin at home sporadically, with cuff deflated/PMV in place. Assessed without and with cuff deflation (without PMV) with vocal wetness/gurgly voice c/w aspiration.Impaired head support, dependent on caretakers to maintain head flexion, especially during po intake.Mouthing words with fair articulation precision and rate. Aphonic with cuff inflation, audible with slight deflation during swallowing assessment. - Disposition Discharge to: Home with Assist (Out Pt Augmentative communication assessment at [facility].) - Dysphagia Impressions/Plan Swallowing Skills: Impaired Dysphagia Impressions: Mild Impairment, Moderate Impairment, Suspect Aspiration (on thin liquids. Inconclusive on puree.) *Silent aspiration: cannot be R/O at bedside Dysphagia Treatment Plan: Small Bites, Chin Tuck/Down (VERY IMPORTANT, especially with PO trials.), Clear Pocket Food, Safe Rate, 1/2 tsp. at a time, Other (double swallow) Recommendations: Other (PMV once approved by Pulmonary. After able to use PMV, possible trial of dysphagia puree/nectar on a tsp. No thin liquids for now) - Recommendations Diet Consistency: Other (PEG feedings, per PMD. On IV fluids at this time.) Medication Administration: Crushed with applesauce
--- NOTE | 2019-01-20 13:51 | EKG ---
Test Reason : Blood Pressure : / mmHG Vent. Rate : 067 BPM Atrial Rate : 067 BPM P-R Int : 174 ms QRS Dur : 106 ms QT Int : 410 ms P-R-T Axes : 048 015 033 degrees QTc Int : 433 ms POOR DATA QUALITY, INTERPRETATION MAY BE ADVERSELY AFFECTED SINUS RHYTHM WITH OCCASIONAL PREMATURE VENTRICULAR COMPLEXES NON-SPECIFIC INTRA-VENTRICULAR CONDUCTION DELAY Confirmed by MARGY CORDOVA MD ([id number]) on 01/20/2019 1:50:57 PM Referred By: Confirmed By:MARGY CORDOVA MD
--- NOTE | 2019-01-20 14:02 | PN ---
Progress Note (short form) - Note Progress Note: ID consult dictated imp/reccd 53 yo female with MS and functional quadraplegia with trach and GT (night feeding) , chronic hypothermia came to ED for dislodged GT after tube was replaced, she became hypoxic and hypotensive cxray with right sided pneumonia aide reports increased secretions last several days, +color change prior sputum culture with MRSA and Pseudomonas cxray- progressive right lung changes pneumonia chronic resp failure MS with functional quadraplegia history of MRSA and Pseudomonas vanco/zosyn sputum culture urinary antigens blood cultures ?thrombocytopenia=repeat cbc chronic hypothermia Problem List - Problems (1) Pneumonia Code(s): J18.9 - PNEUMONIA, UNSPECIFIED ORGANISM Qualifiers: Pneumonia type: due to unspecified organism Laterality: right Lung location: lower lobe of lung (2) Chronic respiratory failure Code(s): J96.10 - CHRONIC RESPIRATORY FAILURE, UNSP W HYPOXIA OR HYPERCAPNIA (3) Functional 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 (4) Thrombocytopenia Code(s): D69.6 - THROMBOCYTOPENIA, UNSPECIFIED (5) Hypothermia Code(s): T68.XXXA - HYPOTHERMIA, INITIAL ENCOUNTER (6) MRSA (methicillin resistant Staphylococcus aureus) colonization Code(s): Z22.322 - CARRIER OR SUSPECTED CARRIER OF METHICILLIN RESIS STAPH
--- NOTE | 2019-01-20 14:06 | CONSULT ---
Consultation: REQUESTING PROVIDER: CONSULT REQUEST: We have been asked to medically evaluate this patient for ( specify). HISTORY OF PRESENT ILLNESS: REVIEW OF SYSTEMS: CONSTITUTIONAL: Absent: fever, chills, diaphoresis, generalized weakness, malaise, loss of appetite, weight change HEENT: Absent: rhinorrhea, nasal congestion, throat pain, throat swelling, difficulty swallowing, mouth swelling, ear pain, eye pain, visual changes CARDIOVASCULAR: Absent: chest pain, syncope, palpitations, irregular heart rate, lightheadedness , peripheral edema RESPIRATORY: Absent: cough, shortness of breath, dyspnea with exertion, orthopnea, wheezing, stridor, hemoptysis GASTROINTESTINAL: Absent: abdominal pain, abdominal distension, nausea, vomiting, diarrhea, constipation, melena, hematochezia GENITOURINARY: Absent: dysuria, frequency, urgency, hesitancy, hematuria, flank pain, genital pain MUSCULOSKELETAL: Absent: myalgia, arthralgia, joint swelling, back pain, neck pain SKIN: Absent: rash, itching, pallor HEMATOLOGIC/IMMUNOLOGIC: Absent: easy bleeding, easy bruising, lymphadenopathy, frequent infections ENDOCRINE: Absent: unexplained weight gain, unexplained weight loss, heat intolerance, cold intolerance NEUROLOGIC: Absent: headache, focal weakness or paresthesias, dizziness, unsteady gait, seizure, mental status changes, bladder or bowel incontinence PSYCHIATRIC: Absent: anxiety, depression, suicidal or homicidal ideation, hallucinations. PHYSICAL EXAMINATION Vital Signs - 24 hr 01/19/19 01/19/19 01/19/19 17:30 18:03 18:52 Temperature Pulse Rate Pulse Rate [ Right Radial] Respiratory 19 Rate Blood Pressure Blood Pressure [Left Arm] Blood Pressure [Right Arm] O2 Sat by Pulse 95 95 Oximetry (%) 01/19/19 01/19/19 01/19/19 18:55 19:45 20:00 Temperature Pulse Rate Pulse Rate [ 60 60 Right Radial] Respiratory 15 16 15 Rate Blood Pressure Blood Pressure 87/43 L [Left Arm] Blood Pressure 64/53 L [Right Arm] O2 Sat by Pulse 95 97 97 Oximetry (%) 01/19/19 01/19/19 01/19/19 20:40 21:00 21:26 Temperature Pulse Rate Pulse Rate [ 60 Right Radial] Respiratory 15 16 Rate Blood Pressure Blood Pressure 97/60 104/45 L [Left Arm] Blood Pressure [Right Arm] O2 Sat by Pulse 99 Oximetry (%) 01/19/19 01/20/19 01/20/19 23:00 00:41 01:00 Temperature Pulse Rate Pulse Rate [ 64 65 Right Radial] Respiratory 17 18 17 Rate Blood Pressure Blood Pressure 108/61 110/47 L [Left Arm] Blood Pressure [Right Arm] O2 Sat by Pulse 97 98 Oximetry (%) 01/20/19 01/20/19 01/20/19 04:50 05:00 06:00 Temperature Pulse Rate Pulse Rate [ 64 70 Right Radial] Respiratory 17 16 15 Rate Blood Pressure Blood Pressure 109/41 L 118/63 [Left Arm] Blood Pressure [Right Arm] O2 Sat by Pulse 99 98 Oximetry (%) 01/20/19 01/20/19 01/20/19 06:15 06:58 07:33 Temperature 98.1 F Pulse Rate Pulse Rate [ 67 Right Radial] Respiratory 16 16 16 Rate Blood Pressure Blood Pressure 122/49 L [Left Arm] Blood Pressure [Right Arm] O2 Sat by Pulse 98 99 Oximetry (%) 01/20/19 01/20/19 01/20/19 08:05 08:18 09:26 Temperature 98.9 F 98.9 F Pulse Rate 75 Pulse Rate [ 68 68 Right Radial] Respiratory 17 16 19 Rate Blood Pressure Blood Pressure 126/64 99/65 [Left Arm] Blood Pressure [Right Arm] O2 Sat by Pulse 99 99 99 Oximetry (%) 01/20/19 01/20/19 01/20/19 10:11 10:45 11:51 Temperature 95.2 F L Pulse Rate 75 78 Pulse Rate [ Right Radial] Respiratory 19 19 15 Rate Blood Pressure 165/82 Blood Pressure [Left Arm] Blood Pressure [Right Arm] O2 Sat by Pulse 97 Oximetry (%) 01/20/19 11:53 Temperature Pulse Rate 84 Pulse Rate [ Right Radial] Respiratory Rate Blood Pressure Blood Pressure [Left Arm] Blood Pressure [Right Arm] O2 Sat by Pulse 94 L Oximetry (%) GENERAL: Awake, alert, and fully oriented, in no acute distress. HEAD: Normal with no signs of trauma. EYES: Pupils equal, round and reactive to light, extraocular movements intact, sclera anicteric, conjunctiva clear. No lid lag. EARS, NOSE, THROAT: Ears normal, nares patent, oropharynx clear without exudates. Moist mucous membranes. NECK: Normal range of motion, supple without lymphadenopathy, JVD, or masses. LUNGS: Breath sounds equal, clear to auscultation bilaterally. No wheezes, and no crackles. No accessory muscle use. HEART: Regular rate and rhythm, normal S1 and S2 without murmur, rub or gallop. ABDOMEN: Soft, nontender, not distended, normoactive bowel sounds, no guarding, no rebound, no masses. No hepatomegaly or splenomegaly. MUSCULOSKELETAL: Normal range of motion at all joints. No bony deformities or tenderness. No CVA tenderness. UPPER EXTREMITIES: 2+ pulses, warm, well-perfused. No cyanosis. No clubbing. Cap refill <2 seconds. No peripheral edema. LOWER EXTREMITIES: 2+ pulses, warm, well-perfused. No calf tenderness. No peripheral edema. NEUROLOGICAL: Cranial nerves II-XII intact. Normal speech. Normal gait. PSYCHIATRIC: Cooperative. Good eye contact. Appropriate mood and affect. SKIN: Warm, dry, normal turgor, no rashes or lesions noted. Laboratory Results - last 24 hr 01/19/19 01/19/19 01/19/19 13:10 14:09 14:09 WBC 7.3 Corrected WBC (auto) 8.90 RBC 3.22 L Hgb 10.5 L Hct 31.7 L D MCV 98.4 H MCH 32.6 MCHC 33.2 RDW 16.5 H Plt Count 138 D MPV 10.8 Absolute Neuts (auto) 6.0 Neutrophils % Emission Technician Neutrophils % (Manual) 70.7 Band Neutrophils % 7.1 Lymphocytes % Emission Technician Lymphocytes % (Manual) 8.1 D Monocytes % Emission Technician Monocytes % (Manual) 9 D Eosinophils % Emission Technician Eosinophils % (Manual) 5.0 H D Basophils % Emission Technician Basophils % (Manual) 0.0 Myelocytes % (Man) 0 Promyelocytes % (Man) 0 Blast Cells % (Manual) 0 Nucleated RBC % 0 Metamyelocytes 0 Hypochromia 0 Platelet Estimate Decreased Platelet Comment No clumping noted Polychromasia 1+ Poikilocytosis 1+ Anisocytosis 2+ Microcytosis 2+ Macrocytosis 0 Spherocytes 1+ Stomatocytes 1+ Anticoagulation Therapy Puncture Site ABG pH ABG pCO2 at Pt Temp ABG pO2 at Pt Temp ABG HCO3 ABG O2 Sat (Measured) ABG O2 Content ABG Base Excess Howard Test VBG pH 7.23 L POC VBG pCO2 55.6 H POC VBG pO2 97.5 H VBG HCO3 22.5 L VBG O2 Sat (Tim) 95.9 H VBG Base Excess -4.7 L O2 Delivery Device Oxygen Flow Rate Vent Mode Vent Rate Mechanical Rate PEEP Pressure Support Vent Sodium Cancelled Potassium Cancelled Chloride Cancelled Carbon Dioxide Cancelled Anion Gap Cancelled BUN Cancelled Creatinine Cancelled Est GFR (CKD-EPI)AfAm Cancelled Est GFR (CKD-EPI)NonAf Cancelled Random Glucose Cancelled Calcium Cancelled Phosphorus Magnesium Total Bilirubin Cancelled AST Cancelled ALT Cancelled Alkaline Phosphatase Cancelled Creatine Kinase Cancelled Troponin I Cancelled Total Protein Cancelled Albumin Cancelled Urine Color Urine Appearance Urine pH Ur Specific [place] Urine Protein Urine Glucose (UA) Urine Ketones Urine Blood Urine Nitrite Urine Bilirubin Urine Urobilinogen Ur Leukocyte Esterase Urine WBC (Auto) Urine RBC (Auto) Urine Casts (Auto) U Epithel Cells (Auto) Urine Bacteria (Auto) 01/19/19 01/19/19 01/20/19 15:40 19:05 05:15 WBC 4.9 Corrected WBC (auto) RBC 3.03 L Hgb 9.7 L Hct 30.1 L MCV 99.3 H MCH 32.0 MCHC 32.2 RDW 16.6 H Plt Count 51 L D MPV 9.7 D Absolute Neuts (auto) 4.0 Neutrophils % 81.6 Neutrophils % (Manual) Band Neutrophils % Lymphocytes % 8.9 D Lymphocytes % (Manual) Monocytes % 5.5 D Monocytes % (Manual) Eosinophils % 3.7 D Eosinophils % (Manual) Basophils % 0.3 Basophils % (Manual) Myelocytes % (Man) Promyelocytes % (Man) Blast Cells % (Manual) Nucleated RBC % 0 Metamyelocytes Hypochromia Platelet Estimate Platelet Comment Polychromasia Poikilocytosis Anisocytosis Microcytosis Macrocytosis Spherocytes Stomatocytes Anticoagulation Therapy No Result Required. Puncture Site Left radial ABG pH 7.25 L ABG pCO2 at Pt Temp 73.4 H* ABG pO2 at Pt Temp 76.4 L ABG HCO3 30.8 H ABG O2 Sat (Measured) 93.6 L ABG O2 Content 16.6 ABG Base Excess 1.9 Howard Test Positive VBG pH POC VBG pCO2 POC VBG pO2 VBG HCO3 VBG O2 Sat (Tim) VBG Base Excess O2 Delivery Device No Result Required. Oxygen Flow Rate No Result Required. Vent Mode No Result Required. Vent Rate No Result Required. Mechanical Rate No Result Required. PEEP Pressure Support Vent No Result Required. Sodium 136 Potassium 5.6 H Chloride 102 Carbon Dioxide 34 H Anion Gap 1 L BUN 31.6 H Creatinine 0.4 L Est GFR (CKD-EPI)AfAm 136.86 Est GFR (CKD-EPI)NonAf 118.08 Random Glucose 63 L Calcium 9.5 Phosphorus Magnesium Total Bilirubin 0.1 L AST 50 H ALT 55 Alkaline Phosphatase 266 H Creatine Kinase Troponin I Total Protein 8.2 Albumin 2.4 L Urine Color Urine Appearance Urine pH Ur Specific [place] Urine Protein Urine Glucose (UA) Urine Ketones Urine Blood Urine Nitrite Urine Bilirubin Urine Urobilinogen Ur Leukocyte Esterase Urine WBC (Auto) Urine RBC (Auto) Urine Casts (Auto) U Epithel Cells (Auto) Urine Bacteria (Auto) 01/20/19 01/20/19 01/20/19 05:15 06:00 06:40 WBC Corrected WBC (auto) RBC Hgb Hct MCV MCH MCHC RDW Plt Count MPV Absolute Neuts (auto) Neutrophils % Neutrophils % (Manual) Band Neutrophils % Lymphocytes % Lymphocytes % (Manual) Monocytes % Monocytes % (Manual) Eosinophils % Eosinophils % (Manual) Basophils % Basophils % (Manual) Myelocytes % (Man) Promyelocytes % (Man) Blast Cells % (Manual) Nucleated RBC % Metamyelocytes Hypochromia Platelet Estimate Platelet Comment Polychromasia Poikilocytosis Anisocytosis Microcytosis Macrocytosis Spherocytes Stomatocytes Anticoagulation Therapy No Result Required. Puncture Site Right radial ABG pH 7.26 L ABG pCO2 at Pt Temp 70.6 H* ABG pO2 at Pt Temp 108 H ABG HCO3 30.7 H ABG O2 Sat (Measured) 97.5 ABG O2 Content 15.6 ABG Base Excess 2.5 H Howard Test Positive VBG pH POC VBG pCO2 POC VBG pO2 VBG HCO3 VBG O2 Sat (Tim) VBG Base Excess O2 Delivery Device Vent Oxygen Flow Rate 40% Vent Mode A/c Vent Rate 15 Mechanical Rate No Result Required. PEEP 5.0 Pressure Support Vent 350 Sodium 139 Potassium 5.2 H Chloride 104 Carbon Dioxide 33 H Anion Gap 2 L BUN 29.1 H Creatinine 0.5 L Est GFR (CKD-EPI)AfAm 127.17 Est GFR (CKD-EPI)NonAf 109.72 Random Glucose 78 Calcium 9.0 Phosphorus 4.8 Magnesium 2.4 Total Bilirubin AST ALT Alkaline Phosphatase Creatine Kinase Troponin I Total Protein Albumin Urine Color Yellow Urine Appearance Clear Urine pH 6.0 Ur Specific [place] 1.012 Urine Protein Trace Urine Glucose (UA) Negative Urine Ketones Negative Urine Blood Trace Urine Nitrite Positive H Urine Bilirubin Negative Urine Urobilinogen 0.2 Ur Leukocyte Esterase 2+ H Urine WBC (Auto) 7 Urine RBC (Auto) 1 Urine Casts (Auto) 0 U Epithel Cells (Auto) 2.4 Urine Bacteria (Auto) 52.5 01/20/19 01/20/19 10:56 12:30 WBC Corrected WBC (auto) RBC Hgb Hct MCV MCH MCHC RDW Plt Count MPV Absolute Neuts (auto) Neutrophils % Neutrophils % (Manual) Band Neutrophils % Lymphocytes % Lymphocytes % (Manual) Monocytes % Monocytes % (Manual) Eosinophils % Eosinophils % (Manual) Basophils % Basophils % (Manual) Myelocytes % (Man) Promyelocytes % (Man) Blast Cells % (Manual) Nucleated RBC % Metamyelocytes Hypochromia Platelet Estimate Platelet Comment Polychromasia Poikilocytosis Anisocytosis Microcytosis Macrocytosis Spherocytes Stomatocytes Anticoagulation Therapy No Result Required. No Result Required. Puncture Site Right radial Right radial ABG pH 7.25 L 7.33 L ABG pCO2 at Pt Temp 72.4 H* 59.1 H ABG pO2 at Pt Temp 75.4 L 79.2 L ABG HCO3 30.3 H 30.4 H ABG O2 Sat (Measured) 93.3 L 95.2 ABG O2 Content 15.5 24.2 ABG Base Excess 1.6 2.7 H Howard Test Positive Positive VBG pH POC VBG pCO2 POC VBG pO2 VBG HCO3 VBG O2 Sat (Tim) VBG Base Excess O2 Delivery Device No Result Required. No Result Required. Oxygen Flow Rate Yes 40 Vent Mode No Result Required. No Result Required. Vent Rate No Result Required. No Result Required. Mechanical Rate No Result Required. No Result Required. PEEP 5.0 Pressure Support Vent No Result Required. No Result Required. Sodium Potassium Chloride Carbon Dioxide Anion Gap BUN Creatinine Est GFR (CKD-EPI)AfAm Est GFR (CKD-EPI)NonAf Random Glucose Calcium Phosphorus Magnesium Total Bilirubin AST ALT Alkaline Phosphatase Creatine Kinase Troponin I Total Protein Albumin Urine Color Urine Appearance Urine pH Ur Specific [place] Urine Protein Urine Glucose (UA) Urine Ketones Urine Blood Urine Nitrite Urine Bilirubin Urine Urobilinogen Ur Leukocyte Esterase Urine WBC (Auto) Urine RBC (Auto) Urine Casts (Auto) U Epithel Cells (Auto) Urine Bacteria (Auto) Active Medications Generic Name Dose Route Start Last Admin Trade Name Freq PRN Reason Stop Dose Admin Acetaminophen 650 mg 01/20/19 01:57 01/20/19 02:15 Tylenol Oral Solution - GT 650 mg Q6H PRN Administration PAIN LEVEL 6-10 Acetylcysteine 200 mg 01/20/19 16:00 Mucomyst 20 Oral / Inh Use Only* NEB RQID [facility] Amino Acids 30 ml 01/20/19 17:30 Prosource No Carb Liquid Pkt PO BID@0800,1730 [facility] Chlorhexidine Gluconate 1 applic 01/19/19 22:00 Hibiclens For Decolonization - TP HS [facility] Clonazepam 0.5 mg 01/20/19 22:00 Klonopin - PO BID [facility] Docusate Sodium 100 mg 01/20/19 12:52 Colace Liquid - PO DAILY PRN CONSTIPATION Heparin Sodium (Porcine) 5,000 unit 01/20/19 22:00 Heparin - SQ BID [facility] Sodium Chloride 1,000 mls @ 150 mls/hr 01/19/19 20:00 01/19/19 20:09 Normal Saline - IV 150 mls/hr ASDIR CATHERINE Administration Dextrose/Sodium Chloride 1,000 mls @ 42 mls/hr 01/20/19 13:15 D5-Ns - IV ASDIR CATHERINE Piperacillin Sod/Tazobactam 100 mls @ 200 mls/hr 01/20/19 13:30 Sod 4.5 gm/ Dextrose IVPB Q8H-IV [facility] Protocol Vancomycin HCl 1,000 mg in 250 mls @ 166.667 mls/hr 01/20/19 13:30 Vancomycin (Pre-Docked) IVPB 0100,1300 [facility] Protocol Mupirocin 1 applic 01/19/19 22:00 Bactroban Ointment (For Decolonization) - NS 01/24/19 21:59 BID [facility] Nystatin 1 applic 01/20/19 22:00 Mycostatin Ointment - TP BID [facility] Pregabalin 150 mg 01/20/19 14:00 Lyrica - PO TID CATHERINE Sertraline HCl 100 mg 01/21/19 10:00 Zoloft - PO DAILY CATHERINE Ursodiol 300 mg 01/20/19 22:00 Actigal - PO BID CATHERINE ASSESSMENT/PLAN: Dispo: We will continue to follow the patient. Thank you for this consultative opportunity. ATTENDING PHYSICIAN STATEMENT I saw and evaluated the patient. I reviewed the resident's note and discussed the case with the resident. I agree with the resident's findings and plan as documented. SUBJECTIVE: OBJECTIVE: ASSESSMENT AND PLAN:
[2019-01-20] MEDS ORDERED: PIPERACILLIN/TAZOBACTAM 4.5 GM VIAL IVPB ONE (14:12)
[2019-01-20] MEDS ORDERED: DEXTROSE 5%-WATER 100 ML IVPB ONE (14:12)
[2019-01-20] MEDS: DEXTROSE 5%-NORMAL SALINE 1,000 ML IV SCH (14:16)
--- NOTE | 2019-01-20 14:45 | PN ---
Physical Exam: SUBJECTIVE: Patient seen and examined at bedside. ICU called to re-evaluate patient. Rapid Response called as patient was found to be hypoxic with SpO2 at 68%. Patient was suctioned, suctioning reveal thick blood tinged brown colored mucous. After suctioning patient's SpO2 increased to high 90s. Patient was placed back on mechanical ventilation. Patient was found to be hypothermic but has a history of hypothermia and refused kinsey hugger treatment. At bedside patient denied any difficulty breathing, chest pain, choking sensation, or any other pain. States that she would like to be off the vent. OBJECTIVE: Vital Signs Period Temp Pulse Resp BP Sys/Morillo Pulse Ox Last 24 Hr 95.2 F-98.9 F 60-84 15-19 64-165/41-82 94-99 GENERAL: The patient is awake, alert, and fully oriented, in no acute distress. HEAD: Normal with no signs of trauma. EYES: PERRL, EOMI NECK: Trach with vent in place LUNGS: Coarse vent sounds, coarse rhonchi auscultated. no stridor. no wheezes, no accessory muscle use. Breathing comfortably HEART: Regular rate and rhythm, S1, S2 without murmur, rub or gallop. ABDOMEN: Soft, nontender, nondistended, normoactive bowel sounds, no guarding, no rebound. Peg tube site clean, dry, intact. EXTREMITIES: 2+ pulses, warm, well-perfused, no edema. PSYCH: Normal mood, normal affect. SKIN: Warm, dry, normal turgor, no rashes or lesions noted Laboratory Results - last 24 hr 01/19/19 01/19/19 01/19/19 13:10 14:09 14:09 WBC 7.3 Corrected WBC (auto) 8.90 RBC 3.22 L Hgb 10.5 L Hct 31.7 L D MCV 98.4 H MCH 32.6 MCHC 33.2 RDW 16.5 H Plt Count 138 D MPV 10.8 Absolute Neuts (auto) 6.0 Neutrophils % Dial Equipment Engineer Neutrophils % (Manual) 70.7 Band Neutrophils % 7.1 Lymphocytes % Dial Equipment Engineer Lymphocytes % (Manual) 8.1 D Monocytes % Dial Equipment Engineer Monocytes % (Manual) 9 D Eosinophils % Dial Equipment Engineer Eosinophils % (Manual) 5.0 H D Basophils % Dial Equipment Engineer Basophils % (Manual) 0.0 Myelocytes % (Man) 0 Promyelocytes % (Man) 0 Blast Cells % (Manual) 0 Nucleated RBC % 0 Metamyelocytes 0 Hypochromia 0 Platelet Estimate Decreased Platelet Comment No clumping noted Polychromasia 1+ Poikilocytosis 1+ Anisocytosis 2+ Microcytosis 2+ Macrocytosis 0 Spherocytes 1+ Stomatocytes 1+ Anticoagulation Therapy Puncture Site ABG pH ABG pCO2 at Pt Temp ABG pO2 at Pt Temp ABG HCO3 ABG O2 Sat (Measured) ABG O2 Content ABG Base Excess Howard Test VBG pH 7.23 L POC VBG pCO2 55.6 H POC VBG pO2 97.5 H VBG HCO3 22.5 L VBG O2 Sat (Tim) 95.9 H VBG Base Excess -4.7 L O2 Delivery Device Oxygen Flow Rate Vent Mode Vent Rate Mechanical Rate PEEP Pressure Support Vent Sodium Cancelled Potassium Cancelled Chloride Cancelled Carbon Dioxide Cancelled Anion Gap Cancelled BUN Cancelled Creatinine Cancelled Est GFR (CKD-EPI)AfAm Cancelled Est GFR (CKD-EPI)NonAf Cancelled Random Glucose Cancelled Calcium Cancelled Phosphorus Magnesium Total Bilirubin Cancelled AST Cancelled ALT Cancelled Alkaline Phosphatase Cancelled Creatine Kinase Cancelled Troponin I Cancelled Total Protein Cancelled Albumin Cancelled Urine Color Urine Appearance Urine pH Ur Specific [place] Urine Protein Urine Glucose (UA) Urine Ketones Urine Blood Urine Nitrite Urine Bilirubin Urine Urobilinogen Ur Leukocyte Esterase Urine WBC (Auto) Urine RBC (Auto) Urine Casts (Auto) U Epithel Cells (Auto) Urine Bacteria (Auto) 01/19/19 01/19/19 01/20/19 15:40 19:05 05:15 WBC 4.9 Corrected WBC (auto) RBC 3.03 L Hgb 9.7 L Hct 30.1 L MCV 99.3 H MCH 32.0 MCHC 32.2 RDW 16.6 H Plt Count 51 L D MPV 9.7 D Absolute Neuts (auto) 4.0 Neutrophils % 81.6 Neutrophils % (Manual) Band Neutrophils % Lymphocytes % 8.9 D Lymphocytes % (Manual) Monocytes % 5.5 D Monocytes % (Manual) Eosinophils % 3.7 D Eosinophils % (Manual) Basophils % 0.3 Basophils % (Manual) Myelocytes % (Man) Promyelocytes % (Man) Blast Cells % (Manual) Nucleated RBC % 0 Metamyelocytes Hypochromia Platelet Estimate Platelet Comment Polychromasia Poikilocytosis Anisocytosis Microcytosis Macrocytosis Spherocytes Stomatocytes Anticoagulation Therapy No Result Required. Puncture Site Left radial ABG pH 7.25 L ABG pCO2 at Pt Temp 73.4 H* ABG pO2 at Pt Temp 76.4 L ABG HCO3 30.8 H ABG O2 Sat (Measured) 93.6 L ABG O2 Content 16.6 ABG Base Excess 1.9 Howard Test Positive VBG pH POC VBG pCO2 POC VBG pO2 VBG HCO3 VBG O2 Sat (Tim) VBG Base Excess O2 Delivery Device No Result Required. Oxygen Flow Rate No Result Required. Vent Mode No Result Required. Vent Rate No Result Required. Mechanical Rate No Result Required. PEEP Pressure Support Vent No Result Required. Sodium 136 Potassium 5.6 H Chloride 102 Carbon Dioxide 34 H Anion Gap 1 L BUN 31.6 H Creatinine 0.4 L Est GFR (CKD-EPI)AfAm 136.86 Est GFR (CKD-EPI)NonAf 118.08 Random Glucose 63 L Calcium 9.5 Phosphorus Magnesium Total Bilirubin 0.1 L AST 50 H ALT 55 Alkaline Phosphatase 266 H Creatine Kinase Troponin I Total Protein 8.2 Albumin 2.4 L Urine Color Urine Appearance Urine pH Ur Specific [place] Urine Protein Urine Glucose (UA) Urine Ketones Urine Blood Urine Nitrite Urine Bilirubin Urine Urobilinogen Ur Leukocyte Esterase Urine WBC (Auto) Urine RBC (Auto) Urine Casts (Auto) U Epithel Cells (Auto) Urine Bacteria (Auto) 01/20/19 01/20/19 01/20/19 05:15 06:00 06:40 WBC Corrected WBC (auto) RBC Hgb Hct MCV MCH MCHC RDW Plt Count MPV Absolute Neuts (auto) Neutrophils % Neutrophils % (Manual) Band Neutrophils % Lymphocytes % Lymphocytes % (Manual) Monocytes % Monocytes % (Manual) Eosinophils % Eosinophils % (Manual) Basophils % Basophils % (Manual) Myelocytes % (Man) Promyelocytes % (Man) Blast Cells % (Manual) Nucleated RBC % Metamyelocytes Hypochromia Platelet Estimate Platelet Comment Polychromasia Poikilocytosis Anisocytosis Microcytosis Macrocytosis Spherocytes Stomatocytes Anticoagulation Therapy No Result Required. Puncture Site Right radial ABG pH 7.26 L ABG pCO2 at Pt Temp 70.6 H* ABG pO2 at Pt Temp 108 H ABG HCO3 30.7 H ABG O2 Sat (Measured) 97.5 ABG O2 Content 15.6 ABG Base Excess 2.5 H Howard Test Positive VBG pH POC VBG pCO2 POC VBG pO2 VBG HCO3 VBG O2 Sat (Tim) VBG Base Excess O2 Delivery Device Vent Oxygen Flow Rate 40% Vent Mode A/c Vent Rate 15 Mechanical Rate No Result Required. PEEP 5.0 Pressure Support Vent 350 Sodium 139 Potassium 5.2 H Chloride 104 Carbon Dioxide 33 H Anion Gap 2 L BUN 29.1 H Creatinine 0.5 L Est GFR (CKD-EPI)AfAm 127.17 Est GFR (CKD-EPI)NonAf 109.72 Random Glucose 78 Calcium 9.0 Phosphorus 4.8 Magnesium 2.4 Total Bilirubin AST ALT Alkaline Phosphatase Creatine Kinase Troponin I Total Protein Albumin Urine Color Yellow Urine Appearance Clear Urine pH 6.0 Ur Specific [place] 1.012 Urine Protein Trace Urine Glucose (UA) Negative Urine Ketones Negative Urine Blood Trace Urine Nitrite Positive H Urine Bilirubin Negative Urine Urobilinogen 0.2 Ur Leukocyte Esterase 2+ H Urine WBC (Auto) 7 Urine RBC (Auto) 1 Urine Casts (Auto) 0 U Epithel Cells (Auto) 2.4 Urine Bacteria (Auto) 52.5 01/20/19 01/20/19 10:56 12:30 WBC Corrected WBC (auto) RBC Hgb Hct MCV MCH MCHC RDW Plt Count MPV Absolute Neuts (auto) Neutrophils % Neutrophils % (Manual) Band Neutrophils % Lymphocytes % Lymphocytes % (Manual) Monocytes % Monocytes % (Manual) Eosinophils % Eosinophils % (Manual) Basophils % Basophils % (Manual) Myelocytes % (Man) Promyelocytes % (Man) Blast Cells % (Manual) Nucleated RBC % Metamyelocytes Hypochromia Platelet Estimate Platelet Comment Polychromasia Poikilocytosis Anisocytosis Microcytosis Macrocytosis Spherocytes Stomatocytes Anticoagulation Therapy No Result Required. No Result Required. Puncture Site Right radial Right radial ABG pH 7.25 L 7.33 L ABG pCO2 at Pt Temp 72.4 H* 59.1 H ABG pO2 at Pt Temp 75.4 L 79.2 L ABG HCO3 30.3 H 30.4 H ABG O2 Sat (Measured) 93.3 L 95.2 ABG O2 Content 15.5 24.2 ABG Base Excess 1.6 2.7 H Howard Test Positive Positive VBG pH POC VBG pCO2 POC VBG pO2 VBG HCO3 VBG O2 Sat (Tim) VBG Base Excess O2 Delivery Device No Result Required. No Result Required. Oxygen Flow Rate Yes 40 Vent Mode No Result Required. No Result Required. Vent Rate No Result Required. No Result Required. Mechanical Rate No Result Required. No Result Required. PEEP 5.0 Pressure Support Vent No Result Required. No Result Required. Sodium Potassium Chloride Carbon Dioxide Anion Gap BUN Creatinine Est GFR (CKD-EPI)AfAm Est GFR (CKD-EPI)NonAf Random Glucose Calcium Phosphorus Magnesium Total Bilirubin AST ALT Alkaline Phosphatase Creatine Kinase Troponin I Total Protein Albumin Urine Color Urine Appearance Urine pH Ur Specific [place] Urine Protein Urine Glucose (UA) Urine Ketones Urine Blood Urine Nitrite Urine Bilirubin Urine Urobilinogen Ur Leukocyte Esterase Urine WBC (Auto) Urine RBC (Auto) Urine Casts (Auto) U Epithel Cells (Auto) Urine Bacteria (Auto) Active Medications Generic Name Dose Route Start Last Admin Trade Name Freq PRN Reason Stop Dose Admin Acetaminophen 650 mg 01/20/19 01:57 01/20/19 02:15 Tylenol Oral Solution - GT 650 mg Q6H PRN Administration PAIN LEVEL 6-10 Acetylcysteine 200 mg 01/20/19 16:00 Mucomyst 20 Oral / Inh Use Only* NEB RQID CATHERINE Amino Acids 30 ml 01/20/19 17:30 Prosource No Carb Liquid Pkt PO BID@0800,1730 [facility] Chlorhexidine Gluconate 1 applic 01/19/19 22:00 Hibiclens For Decolonization - TP HS CATHERINE Clonazepam 0.5 mg 01/20/19 22:00 Klonopin - PO BID CATHERINE Docusate Sodium 100 mg 01/20/19 12:52 Colace Liquid - PO DAILY PRN CONSTIPATION Heparin Sodium (Porcine) 5,000 unit 01/20/19 22:00 Heparin - SQ BID CATHERINE Sodium Chloride 1,000 mls @ 150 mls/hr 01/19/19 20:00 01/19/19 20:09 Normal Saline - IV 150 mls/hr ASDIR CATHERINE Administration Dextrose/Sodium Chloride 1,000 mls @ 42 mls/hr 01/20/19 13:15 01/20/19 14:16 D5-Ns - IV 42 mls/hr ASDIR CATHERINE Administration Piperacillin Sod/Tazobactam 100 mls @ 200 mls/hr 01/20/19 13:30 01/20/19 14: 16 Sod 4.5 gm/ Dextrose IVPB 200 mls/hr Q8H-IV CATHERINE Administration Protocol Vancomycin HCl 1,000 mg in 250 mls @ 166.667 mls/hr 01/20/19 13:30 Vancomycin (Pre-Docked) IVPB 0100,1300 [facility] Protocol Mupirocin 1 applic 01/19/19 22:00 Bactroban Ointment (For Decolonization) - NS 01/24/19 21:59 BID CATHERINE Nystatin 1 applic 01/20/19 22:00 Mycostatin Ointment - TP BID CATHERINE Pregabalin 150 mg 01/20/19 14:00 Lyrica - PO TID CATHERINE Sertraline HCl 100 mg 01/21/19 10:00 Zoloft - PO DAILY CATHERINE Ursodiol 300 mg 01/20/19 22:00 Actigal - PO BID CATHERINE ASSESSMENT/PLAN: Patient is a 53 year old female with history of multiple sclerosis, functional quadriplegia, hypertension, hyperlipidemia, hypothyroidism, trigeminal neuralgia (on baclofen pump), neurogenic bladder (chronic perera catheter), tracheostomy tube (on vent in evening), chronic PEG tube who became acutely hypotensive in ER last night and was noted to have findings on CXR. Rapid response called today for acute hypoxia. #Neuro - AAOx3, monitor #ID - CXR on 01/20 shows progressive pulmonary and pleural changes - WBC WNL - Patient no longer hypotensive - Given vanc/zosyn in ED - Continue Zosyn as per ID #Cards - Hypotension resolved w/ fluid resuscitation - Patient hemodynamically stable - Continue fluid bolus as needed to maintain proper MAP #Pulm - CXR shows progressive pulmonary and pleural changes concerning for PNA - repeat ABG ordered. - Last ABG: pH 7.33, pCO2 59.1, pO2 79.2 - lactic acid ordered - hypoxia during rapid response likely 2/2 to mucous plugging which improved after suctioning #GI - PEG tube replaced in ED. PEG tube site clean, dry, intact, without erythema #Prophylaxis - Heparin - SCDs #Dispo - Pt currently hemodynamically stable and does not meet criteria for the ICU. - If the patient's hemodynamic status changes or any new concerns arise, please feel free to consult the ICU again Visit type - Emergency Visit Emergency Visit: Yes ED Registration Date: 01/19/19 Care time: The patient presented to the Emergency Department on the above date and was hospitalized for further evaluation of their emergent condition. - New Patient This patient is new to me today: Yes Date on this admission: 01/20/19 - Critical Care Critical Care patient: No ATTENDING PHYSICIAN STATEMENT I saw and evaluated the patient. I reviewed the resident's note and discussed the case with the resident. I agree with the resident's findings and plan as documented. SUBJECTIVE: OBJECTIVE: ASSESSMENT AND PLAN:
--- NOTE | 2019-01-20 15:27 | CONS ---
INFECTIOUS DISEASE CONSULTATION DATE OF CONSULTATION: DATE OF DICTATION: 01/20/2019 HISTORY: This is a 53-year-old woman with MS and functional quadriplegia with tracheostomy and G-tube. She gets night feedings, and she eats occasionally. Chronic hypothermia who came to the emergency room for a dislodge G-tube. After the tube was placed, she became hypoxic and hypotensive. She had a lot of tracheal secretions. She was transferred to the floor. Rapid respiration was called again for hypoxia. She had an O2 saturation of 68% in acute distress, and apparently 7 mucus plugs were removed, and she felt improved. She had a chest x-ray done that showed progressive right-sided lung changes. I am asked to see her for further evaluation. She is awake and alert and requesting to go home. PAST MEDICAL HISTORY: Notable for MS. She has functional quadriplegia. She has trigeminal neuralgia on a baclofen pump. She has hypertension, hyperlipidemia. Multiple episodes of pneumonia. She has had MRSA in the past. She has chronic constipation. She has a neurogenic bladder and a chronic Raza that is changed at home. She has a history of anemia. She has a chronic decubitus that is followed at home by wound care. SURGERY: Notable for tracheostomy and G-tube. ALLERGIES: CHLORAL HYDRATE and AZATHIOPRINE. MEDICATIONS: At home include Actigall, Zoloft, Lyrica, Pamelor, loratadine, Colace, Klonopin, and Prosource. She is on nightly G-tube feedings. SOCIAL HISTORY: She lives at home with her mother. She has 24-hour care. REVIEW OF SYSTEMS: As per HPI. PHYSICAL EXAMINATION: Vital Signs: Temperature 95.2, pulse 78, blood pressure 165/82, respiratory rate 15. She is saturating 94% on 40%. HEENT: She is normocephalic. Her eyes are anicteric. She has a tracheostomy. Lungs: Diminished breath sounds at the bases. Heart: Regular rate and rhythm. Abdomen: Soft, nontender. Extremities: Without edema. Skin: She has a 1-cm opening on her right upper back that is clean without any drainage. She has 1 large sacral ulcer and 2 small ulcers all with a clean base that are stage 3. Her labs are notable for a white count on admission of 7.3, this morning 4.9, hemoglobin 9.7, platelets are 51,000. Her BUN 29, creatinine 0.5. The urinalysis has 2+ leukocytes with 7 white cells. Urine and blood cultures are pending. Legionella antigen and pneumococcal antigen is negative. Chest x-ray shows progressive right-sided lung findings. In summary, this is a 53-year-old woman with right-sided pneumonia, chronic respiratory failure, MS with functional quadriplegia, history of MRSA and pseudomonas, thrombocytopenia. We need to repeat a CBC and chronic hypothermia. Would continue vancomycin and Zosyn. Send a sputum culture. Follow up her urinary antigens. Follow up blood culture and a CBC. She needs to be maintained in contact isolation as well. Discussed with both her mother and her sister at the bedside as well as the [facility] hospitalist. HANNA VAZ M.D. [id number]
[2019-01-20] MEDS: PREGABALIN 50 MG CAPSULE PO SCH ×2 (15:50→23:03)
[2019-01-20] MEDS: VANCOMYCIN 1 GRAM (PRE-DOCKED) 1,000 MG/250 ML BAG IVPB SCH (15:50)
--- NOTE | 2019-01-20 15:50 | CONSULT ---
Consult - text type - Consultation Consultation Note: Renal consult for hyperkalemia This is a 53 year old woman with history of multiple sclerosis, respiratory failure with chronic trach, hypertension, hyperpiesia, SIADH who presented from home with dislodged PEG tube and found to have possible PNA and hyperkalemia with K of 5.6. Pt seen and examined at the bedside, offers no acute complaints. Family at the bedside. Peg tube was dislodged 3 days ago and she has not been getting her feeds. No chest pain, abd pain, fever or chills. PMHx: as above Allergies: as listed in EMR Family Hx : NC Social Hx: No T/A/D ROS: as per HPI, all other pertinent ros negative Home Medications Medication Instructions Recorded Clonazepam [Klonopin] 0.5 mg PO BID 10/12/18 Loratadine 10 mg PO DAILY 10/12/18 Pregabalin [Lyrica -] 150 mg PO BID 10/12/18 Sertraline HCl [Zoloft] 100 mg PO DAILY 10/12/18 Ursodiol [Actigal -] 300 mg PO BID 10/12/18 Amino Acids/Protein Hydrolys 30 ml PO BID@0800,1730 packet 10/25/18 [Prosource No Carb Liquid Pkt] Docusate Liquid [Colace Liquid -] 100 mg PO DAILY PRN ud 10/25/18 Nystatin Ointment [Mycostatin 1 applic TP BID #60 gr 10/25/18 Ointment -] Pregabalin [Lyrica -] 150 mg PO TID #90 capsule MDD 3 10/25/18 Nortriptyline HCl [Pamelor -] 25 mg PO BID #60 capsule 11/03/18 Vital Signs Temperature 97.4 F L 01/20/19 13:00 Pulse Rate 89 01/20/19 13:00 Respiratory Rate 20 01/20/19 13:00 Blood Pressure 129/63 01/20/19 13:00 O2 Sat by Pulse Oximetry (%) 94 L 01/20/19 11:53 Intake & Output 01/17/19 01/18/19 01/19/19 01/20/19 23:59 23:59 23:59 23:59 Intake Total 1100 Output Total 700 970 Balance -700 130 Weight 72.575 kg NAD awake and alert neck supple, no JVD RRR, no M/R Dec BS, no rales soft NT/ND no LE edema, clubbing or cyanosis CBC, BMP 01/20/19 05:15 01/20/19 05:15 Current Medications Acetaminophen (Tylenol Oral Solution -) 650 mg GT Q6H PRN PRN Reason: PAIN LEVEL 6-10 Last Admin: 01/20/19 02:15 Dose: 650 mg Acetylcysteine (Mucomyst 20 Oral / Inh Use Only*) 200 mg NEB RQID CATHERINE Albuterol Sulfate (Ventolin 0.083% Nebulizer Soln -) 1 amp NEB RQID CATHERINE Amino Acids (Prosource No Carb Liquid Pkt) 30 ml PO BID@0800,1730 CATHERINE Chlorhexidine Gluconate (Hibiclens For Decolonization -) 1 applic TP HS CATHERINE Clonazepam (Klonopin -) 0.5 mg PO BID CATHERINE Docusate Sodium (Colace Liquid -) 100 mg PO DAILY PRN PRN Reason: CONSTIPATION Heparin Sodium (Porcine) (Heparin -) 5,000 unit SQ BID [facility] Dextrose/Sodium Chloride (D5-Ns -) 1,000 mls @ 42 mls/hr IV ASDIR [facility] Last Admin: 01/20/19 14:16 Dose: 42 mls/hr Piperacillin Sod/Tazobactam (Sod 4.5 gm/ Dextrose) 100 mls @ 200 mls/hr IVPB Q8H-IV [facility]; Protocol Last Admin: 01/20/19 14:16 Dose: 200 mls/hr Vancomycin HCl (Vancomycin (Pre-Docked)) 1,000 mg in 250 mls @ 166.667 mls/hr IVPB 0100,1300 [facility]; Protocol Mupirocin (Bactroban Ointment (For Decolonization) -) 1 applic NS BID [facility] Stop: 01/24/19 21:59 Nystatin (Mycostatin Ointment -) 1 applic TP BID [facility] Pregabalin (Lyrica -) 150 mg PO TID [facility] Sertraline HCl (Zoloft -) 100 mg PO DAILY [facility] Ursodiol (Actigal -) 300 mg PO BID [facility] 53 year old woman with history of multiple sclerosis, respiratory failure with chronic trach, hypertension, hyperpiesia, SIADH who presented from home with dislodged PEG tube and found to have possible PNA and hyperkalemia with K of 5.6. 1. Hyperkalemia 2. Hx of SIADH 3. PNA 4. Multiple sclerosis 5. Anemia 6. Thrombocytoepenia K is improved today, continue present feeds and trend K hyperkalmeia me due due to K retention in setting of volume depletion/low sodium diet Continue empiric antibiotics as per primary, follow up cutltures Na is WNL, trend daily trend CBC for Hgb and plts. Will hold Heparin given acute drop in plt counts. Thank you Will follow Tyshawn Doe DO
--- NOTE | 2019-01-20 15:57 | PN ---
Progress Note (short form) - Note Progress Note: PULMONARY CONSULTATION DICTATED 01/24/19 IMP ACUTE ON CHRONIC HYPOXEMIC/HYPERCAPNEIC RESPIRATORY FAILURE ACUTE RUL PNEUMONIA LIKELY ASPIRATION ADVANCED MULTIPLE SCLEROSIS ,S/P TRACH FUNCTIONAL QUADRIPLEGIA RECURRENT UTIS HTN HLD HYPOTHERMIA ANEMIA THROMBOCYTOPENIA PLAN VENT SUPPORT ON AC MODE F/U ABGS INHALED BRONCHODILATORS MUCOMYST ABX PER ID IVF TRACHEAL SUCTIONING F//U CHEST X-RAYS NUTRITIONAL SUPPORT MONITOR LYTES,CBC CULTURES DR ELDER Problem List - Problems (1) Hypothermia Code(s): T68.XXXA - HYPOTHERMIA, INITIAL ENCOUNTER (2) Ventilator associated pneumonia Code(s): J95.851 - VENTILATOR ASSOCIATED PNEUMONIA (3) Abnormal LFTs Code(s): R94.5 - ABNORMAL RESULTS OF LIVER FUNCTION STUDIES (4) Acute on chronic respiratory failure with hypoxia and hypercapnia Code(s): J96.21 - ACUTE AND CHRONIC RESPIRATORY FAILURE WITH HYPOXIA; J96.22 - ACUTE AND CHRONIC RESPIRATORY FAILURE WITH HYPERCAPNIA (5) Anemia Code(s): D64.9 - ANEMIA, UNSPECIFIED (6) Aspiration pneumonia Code(s): J69.0 - PNEUMONITIS DUE TO INHALATION OF FOOD AND VOMIT (7) Functional quadriplegia Code(s): R53.2 - FUNCTIONAL QUADRIPLEGIA (8) Functional 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 (9) HTN (hypertension) Code(s): I10 - ESSENTIAL (PRIMARY) HYPERTENSION (10) Hypernatremia Code(s): E87.0 - HYPEROSMOLALITY AND HYPERNATREMIA (11) Hypotension Code(s): I95.9 - HYPOTENSION, UNSPECIFIED (12) Multiple sclerosis Code(s): G35 - MULTIPLE SCLEROSIS (13) Neurogenic bladder Code(s): N31.9 - NEUROMUSCULAR DYSFUNCTION OF BLADDER, UNSPECIFIED (14) Presence of intrathecal baclofen pump Code(s): Z98.89 - OTHER SPECIFIED POSTPROCEDURAL STATES * DO NOT USE * (15) Respiratory acidosis Code(s): E87.2 - ACIDOSIS (16) Tracheostomy care Code(s): Z43.0 - ENCOUNTER FOR ATTENTION TO TRACHEOSTOMY (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
[2019-01-20] MEDS: AMINO ACIDS/PROTEIN HYDROLYS 30 ML LIQUID.PKT PO SCH ×2 (16:14→17:20)
[2019-01-20] MEDS: ACETYLCYSTEINE 20% 200MG/ML 4 ML VIAL *FOR ORAL / INH USE ONLY NEB SCH ×2 (16:34→20:20)
[2019-01-20] MEDS: ALBUTEROL SO4 0.083% IH SOL 2.5 MG/3 ML VIAL.NEB. NEB SCH ×2 (16:35→20:20)
[2019-01-20 18:19] LABS: BASO % 0.1 % (0-2.0); EOS % 1.7 % (0-4.5); HEMATOCRIT 30.5 % (32.4-45.2); HEMOGLOBIN 9.7 GM/dL (10.7-15.3); LYMPH % 5.2 % (8-40); MCH 31.5 pg (25.7-33.7); MCHC 31.9 g/dl (32.0-36.0); MEAN CELL VOLUME 98.8 fl (80-96); MEAN PLT VOLUME 10.8 fl (7.5-11.1); MONO % 2.8 % (3.8-10.2); NEUT % 90.2 % (42.8-82.8); RBC 3.09 M/mm3 (3.60-5.2); RDW 16.6 % (11.6-15.6); WHITE BLOOD COUNT 6.7 K/mm3 (4.0-10.0)
[2019-01-20 18:41] LABS: PLATELET COUNT 57 K/MM3 (134-434)
[2019-01-20 18:42] LABS: PLATELET ESTIMATE DECREASED
[2019-01-20 19:16] LABS: ALBUMIN 2.1 g/dl (3.4-5.0); BILIRUBIN,DIRECT 0.1 mg/dL (0.0-0.2); BILIRUBIN,TOTAL 0.4 mg/dL (0.2-1); BLOOD UREA NITROGEN 26.5 mg/dL (7-18); CALCIUM 8.9 mg/dL (8.5-10.1); CREATININE 0.5 mg/dL (0.55-1.3); POTASSIUM 5.2 mmol/L (3.5-5.1); TOT PROT 7.4 g/dl (6.4-8.2)
--- NOTE | 2019-01-20 19:21 | PN ---
Teaching Attending Note Name of Resident: Barrie Schreiber ATTENDING PHYSICIAN STATEMENT I saw and evaluated the patient. I reviewed the resident's note and discussed the case with the resident. I agree with the resident's findings and plan as documented. ASSESSMENT AND PLAN: 53 year old woman with history of multiple sclerosis, respiratory failure with chronic trach, hypertension, SIADH who presented from home with dislodged PEG tube and found to have possible PNA and hyperkalemia with K of 5.6. 1. Hyperkalemia 2. Hx of SIADH 3. PNA 4. Multiple sclerosis 5. Anemia 6. Thrombocytoepenia Thrombocytopenia due to ongoing pneumonia. Monitor macrocytic anemia--check b12/folate/tsh
[2019-01-20] MEDS ORDERED: clonazePAM 2 MG TABLET PO SCH (22:00)
[2019-01-20] MEDS ORDERED: HEPARIN NA (PORCINE) 5,000 UNITS/ML 1ML VIAL SQ SCH (22:00)
[2019-01-20] MEDS: clonazePAM 0.5 MG TABLET PO SCH (23:04)
[2019-01-20] MEDS: URSODIOL 300 MG CAPSULE PO SCH (23:06)
[2019-01-20] MEDS: NYSTATIN 100000 UNIT/GM TOPICAL OINTMENT 15 GM TUBE TP SCH (23:06)
[2019-01-21] MEDS ORDERED: DEXTROSE 5%-WATER 100 ML IVPB ONE ×3 (01:20→18:01)
[2019-01-21] MEDS ORDERED: PIPERACILLIN/TAZOBACTAM 4.5 GM VIAL IVPB ONE ×3 (01:20→18:01)
[2019-01-21] MEDS: VANCOMYCIN 1 GRAM (PRE-DOCKED) 1,000 MG/250 ML BAG IVPB SCH ×2 (01:31→14:24)
[2019-01-21] MEDS: PIPERACILLIN/TAZOB 4.5 GM 4.5 GM in DEXTROSE 5%-WATER 100 ML IVPB SCH ×3 (01:32→18:16)
[2019-01-21] MEDS: PREGABALIN 50 MG CAPSULE PO SCH ×3 (05:39→09:01)
--- NOTE | 2019-01-21 06:12 | HOSP ---
Subjective - Review of Symptoms Events since last encounter: 53 year old woman with a PMHx of MS (s/p trach, vent dependent), Functional Quadriplegia, HTN, HLD. Who presents to the ED for a dislodged 16-Mac[place] G- tube. During course of ED patient became hypoxic 80's. Chest Xray- R- infiltrate with fluid. Patient later became hypotensive 70/43, fluid bolus was given, with ABX for PNA. Currently patient remain on IV Abx, tolerating well. S/p peg disloged RN placed perera in place, GI consult palced for replacement. Physical Examination Vital Signs: Vital Signs Temperature 98.6 F 01/21/19 05:37 Pulse Rate 79 01/21/19 05:37 Respiratory Rate 18 01/21/19 05:37 Blood Pressure 111/54 L 01/21/19 05:37 O2 Sat by Pulse Oximetry (%) 97 01/21/19 04:15 Labs: CBC, BMP 01/20/19 17:30 01/20/19 17:30
--- NOTE | 2019-01-21 07:18 | PN ---
Progress Note, Physician Chief Complaint: Hypoxia Hyponatremia Multiple sclerosis History of Present Illness: NAD on [facility] vent feels tired PEG dislodged overnight - Current Medication List Current Medications: Active Medications Acetaminophen (Tylenol Oral Solution -) 650 mg GT Q6H PRN PRN Reason: PAIN LEVEL 6-10 Last Admin: 01/20/19 02:15 Dose: 650 mg Acetylcysteine (Mucomyst 20 Oral / Inh Use Only*) 200 mg NEB RQID [facility] Last Admin: 01/20/19 20:20 Dose: 200 mg Albuterol Sulfate (Ventolin 0.083% Nebulizer Soln -) 1 amp NEB RQID [facility] Last Admin: 01/20/19 20:20 Dose: 1 amp Amino Acids (Prosource No Carb Liquid Pkt) 30 ml PO BID@0800,1730 [facility] Last Admin: 01/20/19 17:20 Dose: Not Given Clonazepam (Klonopin -) 0.5 mg PO BID [facility] Last Admin: 01/20/19 23:04 Dose: 0.5 mg Docusate Sodium (Colace Liquid -) 100 mg PO DAILY PRN PRN Reason: CONSTIPATION Dextrose/Sodium Chloride (D5-Ns -) 1,000 mls @ 42 mls/hr IV ASDIR [facility] Last Admin: 01/20/19 14:16 Dose: 42 mls/hr Piperacillin Sod/Tazobactam (Sod 4.5 gm/ Dextrose) 100 mls @ 200 mls/hr IVPB Q8H-IV [facility]; Protocol Last Admin: 01/21/19 01:32 Dose: 200 mls/hr Vancomycin HCl (Vancomycin (Pre-Docked)) 1,000 mg in 250 mls @ 166.667 mls/hr IVPB 0100,1300 [facility]; Protocol Last Admin: 01/21/19 01:31 Dose: 166.667 mls/hr Influenza Virus Vaccine Quadrival (Flulaval Quad [id number]) 60 mcg IM .ONCE ONE Stop: 01/21/19 10:01 Nystatin (Mycostatin Ointment -) 1 applic TP BID [facility] Last Admin: 01/20/19 23:06 Dose: 1 applic Pregabalin (Lyrica -) 150 mg PO TID [facility] Last Admin: 01/21/19 06:03 Dose: Not Given Sertraline HCl (Zoloft -) 100 mg PO DAILY [facility] Ursodiol (Actigal -) 300 mg PO BID [facility] Last Admin: 01/20/19 23:06 Dose: 300 mg - Objective Vital Signs: Vital Signs Temperature 98.6 F 01/21/19 05:37 Pulse Rate 79 01/21/19 05:37 Respiratory Rate 18 01/21/19 05:37 Blood Pressure 111/54 L 01/21/19 05:37 O2 Sat by Pulse Oximetry (%) 97 01/21/19 04:15 Constitutional: Yes: Well Nourished, No Distress, Calm Cardiovascular: Yes: Regular Rate and Rhythm Respiratory: Yes: Regular, Mechanically Ventilated, Rhonchi (diffuse) Gastrointestinal: Yes: Normal Bowel Sounds, Soft Genitourinary: Yes: Raza Present Musculoskeletal: Yes: Other (generalized atrophy) Extremities: Yes: WNL Edema: No Peripheral Pulses WNL: Yes Wound/Incision: Yes: Dressing Dry and Intact (multiple pressure wounds) Neurological: Yes: Alert, Oriented Psychiatric: Yes: Alert, Oriented Labs: CBC, BMP 01/20/19 17:30 01/20/19 17:30 Problem List - Problems (1) Dislodged gastrostomy tube Assessment/Plan: -G tube changed by GI -Inserted 18 fr G tube Problems reviewed: Yes Code(s): Z43.1 - ENCOUNTER FOR ATTENTION TO GASTROSTOMY Assessment/Plan (1) Chronic hypercapnic respiratory failure Assessment/Plan: -Pulm on board -Bronchodilators -Mucomyst -Mechanically ventilated -ABGs -keep SpO2 >90% -CXR shows progressive right infiltrate with fluid -Aspiration precautions -Sit up patient for any oral feedings -Seen by MILITARY LOGISTICS SPECIALIST- okay to have dysphagia puree, no thin liquids Code(s): J96.12 - CHRONIC RESPIRATORY FAILURE WITH HYPERCAPNIA (2) Functional quadriplegia Assessment/Plan: -PT -fall risk Code(s): R53.2 - FUNCTIONAL QUADRIPLEGIA (3) Hypotension Assessment/Plan: -Cardiology consult -monitor BP Code(s): I95.9 - HYPOTENSION, UNSPECIFIED (4) Hypothyroid Assessment/Plan: -resume levothyroxie Code(s): E03.9 - HYPOTHYROIDISM, UNSPECIFIED (5) Sacral decubitus ulcer, stage IV Assessment/Plan: -Offloading -turn q2h -Plastic Surgery consult -Vascular consult Code(s): L89.154 - PRESSURE ULCER OF SACRAL REGION, STAGE 4 (6) Aspiration pneumonia Assessment/Plan: -ID on board -no leukocytosis -Vancomycin, Zosyn -Legionella negative -BC/SC Microbiology 01/20/19 15:25 Sputum - Endotrachea Suction/Ventilator Gram Stain - Final 01/20/19 06:00 Urine - Urine Raza Urine Culture - Final Gram Negative Adam 01/19/19 19:00 Blood - Peripheral Venous Blood Culture - Preliminary NO GROWTH OBTAINED AFTER 24 HOURS, INCUBATION TO CONTINUE FOR 4 DAYS. 01/19/19 18:55 Blood - Peripheral Venous Blood Culture - Preliminary NO GROWTH OBTAINED AFTER 24 HOURS, INCUBATION TO CONTINUE FOR 4 DAYS. 01/20/19 06:00 Urine For Antigen Detection Legionella Antigen - Final 01/20/19 06:00 Urine For Antigen Detection Streptococcus pneumoniae Antigen (M - Final -Pulm on board -Bronchodilators -Mucomyst -Mechanically ventilated -keep SpO2 >90% -CXR shows progressive right infiltrate with fluid -Aspiration precautions -Dietary consult -MILITARY LOGISTICS SPECIALIST consult -LA normal Code(s): J69.0 - PNEUMONITIS DUE TO INHALATION OF FOOD AND VOMIT (7) Acute renal insufficiency Assessment/Plan: -Renal consult -monitor renal function Code(s): N28.9 - DISORDER OF KIDNEY AND URETER, UNSPECIFIED (8) Cholelithiasis Assessment/Plan: -Actigal Code(s): K80.20 - CALCULUS OF GALLBLADDER W/O CHOLECYSTITIS W/O OBSTRUCTION (9) Anemia Assessment/Plan: -chronic, multifactorial -monitor Hg daily -transfuse for Hg <7.0 -Check Thyroid, and iron profile Code(s): D64.9 - ANEMIA, UNSPECIFIED (10) Hypothermia Assessment/Plan: -DAHLIA Hugger Code(s): T68.XXXA - HYPOTHERMIA, INITIAL ENCOUNTER Assessment/Plan see problem list dvt ppx
[2019-01-21] MEDS: ACETYLCYSTEINE 20% 200MG/ML 4 ML VIAL *FOR ORAL / INH USE ONLY NEB SCH ×4 (07:30→20:45)
[2019-01-21] MEDS: ALBUTEROL SO4 0.083% IH SOL 2.5 MG/3 ML VIAL.NEB. NEB SCH ×4 (07:30→20:45)
[2019-01-21 08:38] LABS: HEMATOCRIT 26.8 % (32.4-45.2); MCH 32.7 pg (25.7-33.7); MCHC 33.8 g/dl (32.0-36.0); MEAN CELL VOLUME 96.7 fl (80-96); MEAN PLT VOLUME 11.5 fl (7.5-11.1); PLATELET COUNT 61 K/MM3 (134-434); RBC 2.77 M/mm3 (3.60-5.2); RDW 16.2 % (11.6-15.6); WHITE BLOOD COUNT 5.2 K/mm3 (4.0-10.0)
[2019-01-21] MEDS: clonazePAM 0.5 MG TABLET PO SCH ×2 (08:53→10:17)
[2019-01-21] MEDS: SERTRALINE HCL 50 MG TABLET (FP) PO SCH ×2 (08:53→10:17)
[2019-01-21] MEDS: URSODIOL 300 MG CAPSULE PO SCH ×3 (08:57→21:05)
[2019-01-21 09:10] LABS: BILIRUBIN,TOTAL 0.5 mg/dL (0.2-1); BLOOD UREA NITROGEN 26.3 mg/dL (7-18); CALCIUM 8.9 mg/dL (8.5-10.1); CREATININE 0.6 mg/dL (0.55-1.3); POTASSIUM 4.4 mmol/L (3.5-5.1); TOT PROT 7.2 g/dl (6.4-8.2)
[2019-01-21] MEDS: AMINO ACIDS/PROTEIN HYDROLYS 30 ML LIQUID.PKT PO SCH ×2 (09:11→18:18)
[2019-01-21] MEDS ORDERED: MULTIVIT-MINERALS ORAL LIQUID PO SCH (10:00)
[2019-01-21] MEDS ORDERED: LORATADINE 10 MG TABLET PO SCH (10:00)
[2019-01-21] MEDS ORDERED: FLU VACCINE QUAD 60 MCG/0.5 ML (MDV 19-20) IM ONE (10:00)
--- NOTE | 2019-01-21 10:41 | PN ---
Progress Note (short form) - Note Progress Note: 18 Fr replacement gastrostomy tube inserted at bedside. Position confirmed by auscultation and by irrigation.
--- NOTE | 2019-01-21 11:46 | PN ---
Progress Note, Physician History of Present Illness: pulmonary alert,comfortable on cpap ,ps 5 tolerating well - Current Medication List Current Medications: Active Medications Acetaminophen (Tylenol Oral Solution -) 650 mg GT Q6H PRN PRN Reason: PAIN LEVEL 6-10 Last Admin: 01/20/19 02:15 Dose: 650 mg Acetylcysteine (Mucomyst 20 Oral / Inh Use Only*) 200 mg NEB RQID [facility] Last Admin: 01/21/19 11:18 Dose: 200 mg Albuterol Sulfate (Ventolin 0.083% Nebulizer Soln -) 1 amp NEB RQID [facility] Last Admin: 01/21/19 11:18 Dose: 1 amp Amino Acids (Prosource No Carb Liquid Pkt) 30 ml PO BID@0800,1730 [facility] Last Admin: 01/21/19 09:11 Dose: Not Given Clonazepam (Klonopin -) 0.5 mg PO BID [facility] Last Admin: 01/21/19 10:17 Dose: Not Given Docusate Sodium (Colace Liquid -) 100 mg PO DAILY PRN PRN Reason: CONSTIPATION Dextrose/Sodium Chloride (D5-Ns -) 1,000 mls @ 42 mls/hr IV ASDIR [facility] Last Admin: 01/20/19 14:16 Dose: 42 mls/hr Piperacillin Sod/Tazobactam (Sod 4.5 gm/ Dextrose) 100 mls @ 200 mls/hr IVPB Q8H-IV [facility]; Protocol Last Admin: 01/21/19 01:32 Dose: 200 mls/hr Vancomycin HCl (Vancomycin (Pre-Docked)) 1,000 mg in 250 mls @ 166.667 mls/hr IVPB 0100,1300 [facility]; Protocol Last Admin: 01/21/19 01:31 Dose: 166.667 mls/hr Levothyroxine Sodium (Synthroid -) 88 mcg PO DAILY@0700 [facility] Loratadine (Claritin -) 10 mg PO DAILY [facility] Multivitamins/Minerals (Certavite-Antioxidant Liquid) 15 ml PO DAILY [facility] Nortriptyline HCl (Pamelor -) 50 mg PO HS [facility] Nystatin (Mycostatin Ointment -) 1 applic TP BID [facility] Last Admin: 01/20/19 23:06 Dose: 1 applic Pregabalin (Lyrica -) 200 mg PO TID [facility] Sertraline HCl (Zoloft -) 100 mg PO DAILY [facility] Last Admin: 01/21/19 10:17 Dose: Not Given Tramadol HCl (Ultram -) 50 mg PO Q8H PRN PRN Reason: PAIN LEVEL 7 - 10 Ursodiol (Actigal -) 300 mg PO BID [facility] Last Admin: 01/21/19 10:17 Dose: Not Given - Objective Vital Signs: Vital Signs Temperature 98.3 F 01/21/19 09:59 Pulse Rate 81 01/21/19 11:25 Respiratory Rate 16 01/21/19 11:25 Blood Pressure 111/56 L 01/21/19 09:59 O2 Sat by Pulse Oximetry (%) 98 01/21/19 11:25 Constitutional: Yes: Well Nourished, Calm Eyes: Yes: WNL HENT: Yes: WNL Neck: Yes: Supple (trach) Cardiovascular: Yes: Regular Rate and Rhythm, S1, S2 Respiratory: Yes: Rhonchi (scattered rhonchi) Gastrointestinal: Yes: Normal Bowel Sounds, Soft Extremities: Yes: WNL Edema: Yes Labs: CBC, BMP 01/21/19 07:50 01/21/19 07:50 Problem List - Problems (1) Hypothermia Code(s): T68.XXXA - HYPOTHERMIA, INITIAL ENCOUNTER (2) Ventilator associated pneumonia Code(s): J95.851 - VENTILATOR ASSOCIATED PNEUMONIA (3) Abnormal LFTs Code(s): R94.5 - ABNORMAL RESULTS OF LIVER FUNCTION STUDIES (4) Acute on chronic respiratory failure with hypoxia and hypercapnia Code(s): J96.21 - ACUTE AND CHRONIC RESPIRATORY FAILURE WITH HYPOXIA; J96.22 - ACUTE AND CHRONIC RESPIRATORY FAILURE WITH HYPERCAPNIA (5) Anemia Code(s): D64.9 - ANEMIA, UNSPECIFIED (6) Aspiration pneumonia Code(s): J69.0 - PNEUMONITIS DUE TO INHALATION OF FOOD AND VOMIT (7) Functional quadriplegia Code(s): R53.2 - FUNCTIONAL QUADRIPLEGIA (8) Functional 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 (9) HTN (hypertension) Code(s): I10 - ESSENTIAL (PRIMARY) HYPERTENSION (10) Hypernatremia Code(s): E87.0 - HYPEROSMOLALITY AND HYPERNATREMIA (11) Hypotension Code(s): I95.9 - HYPOTENSION, UNSPECIFIED (12) Multiple sclerosis Code(s): G35 - MULTIPLE SCLEROSIS (13) Neurogenic bladder Code(s): N31.9 - NEUROMUSCULAR DYSFUNCTION OF BLADDER, UNSPECIFIED (14) Presence of intrathecal baclofen pump Code(s): Z98.89 - OTHER SPECIFIED POSTPROCEDURAL STATES * DO NOT USE * (15) Respiratory acidosis Code(s): E87.2 - ACIDOSIS (16) Tracheostomy care Code(s): Z43.0 - ENCOUNTER FOR ATTENTION TO TRACHEOSTOMY (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 Assessment/Plan IMP ACUTE ON CHRONIC HYPOXEMIC/HYPERCAPNEIC RESPIRATORY FAILURE ACUTE RUL PNEUMONIA LIKELY ASPIRATION ADVANCED MULTIPLE SCLEROSIS ,S/P TRACH FUNCTIONAL QUADRIPLEGIA RECURRENT UTIS HTN HLD HYPOTHERMIA ANEMIA THROMBOCYTOPENIA PLAN VENT SUPPORT ON AC MODE WEAN TOLERATED INHALED BRONCHODILATORS MUCOMYST ABX PER ID IVF TRACHEAL SUCTIONING F//U CHEST X-RAYS NUTRITIONAL SUPPORT MONITOR LYTES,CBC DR ELDER Problem List - Problems (1) Hypothermia Code(s): T68.XXXA - HYPOTHERMIA, INITIAL ENCOUNTER (2) Ventilator associated pneumonia Code(s): J95.851 - VENTILATOR ASSOCIATED PNEUMONIA (3) Abnormal LFTs Code(s): R94.5 - ABNORMAL RESULTS OF LIVER FUNCTION STUDIES (4) Acute on chronic respiratory failure with hypoxia and hypercapnia Code(s): J96.21 - ACUTE AND CHRONIC RESPIRATORY FAILURE WITH HYPOXIA; J96.22 - ACUTE AND CHRONIC RESPIRATORY FAILURE WITH HYPERCAPNIA (5) Anemia Code(s): D64.9 - ANEMIA, UNSPECIFIED (6) Aspiration pneumonia Code(s): J69.0 - PNEUMONITIS DUE TO INHALATION OF FOOD AND VOMIT (7) Functional quadriplegia Code(s): R53.2 - FUNCTIONAL QUADRIPLEGIA (8) Functional 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 (9) HTN (hypertension) Code(s): I10 - ESSENTIAL (PRIMARY) HYPERTENSION (10) Hypernatremia Code(s): E87.0 - HYPEROSMOLALITY AND HYPERNATREMIA (11) Hypotension Code(s): I95.9 - HYPOTENSION, UNSPECIFIED (12) Multiple sclerosis Code(s): G35 - MULTIPLE SCLEROSIS (13) Neurogenic bladder Code(s): N31.9 - NEUROMUSCULAR DYSFUNCTION OF BLADDER, UNSPECIFIED (14) Presence of intrathecal baclofen pump Code(s): Z98.89 - OTHER SPECIFIED POSTPROCEDURAL STATES * DO NOT USE * (15) Respiratory acidosis Code(s): E87.2 - ACIDOSIS (16) Tracheostomy care Code(s): Z43.0 - ENCOUNTER FOR ATTENTION TO TRACHEOSTOMY (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
[2019-01-21] MEDS: NYSTATIN 100000 UNIT/GM TOPICAL OINTMENT 15 GM TUBE TP SCH ×2 (12:03→21:17)
[2019-01-21] MEDS ORDERED: PT OWN MED DRAWER 7, Y5N ONE ×5 (12:05→21:01)
[2019-01-21] MEDS: DEXTROSE 5%-NORMAL SALINE 1,000 ML IV SCH (13:15)
--- NOTE | 2019-01-21 14:18 | PN ---
Progress Note (short form) - Note Progress Note: alert trach to vent Vital Signs Period Temp Pulse Resp BP Sys/Morillo Pulse Ox Last 24 Hr 97.9 F-98.6 F 76-776 15-21 111-147/54-76 97-100 cor-rrr llungs decreased bs at bases abd soft, +gt ext no edema CBC, BMP 01/21/19 07:50 01/21/19 07:50 Microbiology 01/20/19 15:25 Sputum - Endotrachea Suction/Ventilator Gram Stain - Final 01/20/19 06:00 Urine - Urine Raza Urine Culture - Final Gram Negative Adam 01/19/19 19:00 Blood - Peripheral Venous Blood Culture - Preliminary NO GROWTH OBTAINED AFTER 24 HOURS, INCUBATION TO CONTINUE FOR 4 DAYS. 01/19/19 18:55 Blood - Peripheral Venous Blood Culture - Preliminary NO GROWTH OBTAINED AFTER 24 HOURS, INCUBATION TO CONTINUE FOR 4 DAYS. 01/20/19 06:00 Urine For Antigen Detection Legionella Antigen - Final 01/20/19 06:00 Urine For Antigen Detection Streptococcus pneumoniae Antigen (M - Final a/p pneumonia-?aspiration- GT was not funchtional for 48 hours chronic resp failure MS with functional quadraplegia history of MRSA and Pseudomonas vanco/zosyn sputum culture pending blood cultures thrombocytopenia- follow cbc, ?secondary to pneumonia chronic hypothermia
[2019-01-21] MEDS ORDERED: clonazePAM 0.5 MG TABLET GT SCH (15:37)
[2019-01-21] MEDS ORDERED: DOCUSATE NA 100 MG/10 ML UNIT-DOSE CUPS GT PRN (15:38)
[2019-01-21] MEDS: PREGABALIN 100 MG CAPSULE PO SCH ×2 (16:42→21:05)
--- NOTE | 2019-01-21 16:46 | PN ---
Progress Note, Physician History of Present Illness: Pt seen and examined at bedside. No great change in status. - Current Medication List Current Medications: Active Medications Acetaminophen (Tylenol Oral Solution -) 650 mg GT Q6H PRN PRN Reason: PAIN LEVEL 6-10 Last Admin: 01/20/19 02:15 Dose: 650 mg Acetylcysteine (Mucomyst 20 Oral / Inh Use Only*) 200 mg NEB RQID [facility] Last Admin: 01/21/19 15:38 Dose: 200 mg Albuterol Sulfate (Ventolin 0.083% Nebulizer Soln -) 1 amp NEB RQID [facility] Last Admin: 01/21/19 15:38 Dose: 1 amp Amino Acids (Prosource No Carb Liquid Pkt) 30 ml GT BID@0800,1730 [facility] Clonazepam (Klonopin -) 0.5 mg GT BID [facility] Docusate Sodium (Colace Liquid -) 100 mg GT DAILY PRN PRN Reason: CONSTIPATION Dextrose/Sodium Chloride (D5-Ns -) 1,000 mls @ 42 mls/hr IV ASDIR [facility] Last Admin: 01/21/19 13:15 Dose: Not Given Piperacillin Sod/Tazobactam (Sod 4.5 gm/ Dextrose) 100 mls @ 200 mls/hr IVPB Q8H-IV [facility]; Protocol Last Admin: 01/21/19 12:04 Dose: 200 mls/hr Vancomycin HCl (Vancomycin (Pre-Docked)) 1,000 mg in 250 mls @ 166.667 mls/hr IVPB 0100,1300 [facility]; Protocol Last Admin: 01/21/19 14:24 Dose: 166.667 mls/hr Levothyroxine Sodium (Synthroid -) 88 mcg GT DAILY@0700 [facility] Loratadine (Claritin -) 10 mg GT DAILY [facility] Multivitamins/Minerals (Certavite-Antioxidant Liquid) 15 ml PO DAILY [facility] Nortriptyline HCl (Pamelor -) 50 mg PO HS [facility] Nystatin (Mycostatin Ointment -) 1 applic TP BID [facility] Last Admin: 01/21/19 12:03 Dose: 1 applic Pregabalin (Lyrica -) 200 mg PO TID [facility] Sertraline HCl (Zoloft -) 100 mg PO DAILY [facility] Last Admin: 01/21/19 10:17 Dose: Not Given Tramadol HCl (Ultram -) 50 mg PO Q8H PRN PRN Reason: PAIN LEVEL 7 - 10 Ursodiol (Actigal -) 300 mg PO BID [facility] Last Admin: 01/21/19 10:17 Dose: Not Given - Objective Vital Signs: Vital Signs Temperature 98.3 F 01/21/19 14:00 Pulse Rate 776 H 01/21/19 14:00 Respiratory Rate 16 01/21/19 15:37 Blood Pressure 147/76 01/21/19 14:00 O2 Sat by Pulse Oximetry (%) 98 01/21/19 11:25 Constitutional: Yes: Calm Eyes: Yes: Conjunctiva Clear HENT: Yes: Atraumatic Neck: Yes: Other (trache) Cardiovascular: Yes: S1, S2 Respiratory: Yes: Mechanically Ventilated Gastrointestinal: Yes: Normal Bowel Sounds, Soft Genitourinary: Yes: Incontinence Musculoskeletal: Yes: Muscle Weakness Edema: No Neurological: Yes: Pre-Existing Deficit Labs: CBC, BMP 01/21/19 07:50 01/21/19 07:50 Assessment/Plan Current Medications Generic Name Dose Route Start Last Admin Trade Name Freq PRN Reason Stop Dose Admin Acetaminophen 650 mg 01/20/19 01:57 01/20/19 02:15 Tylenol Oral Solution - GT 650 mg Q6H PRN Administration PAIN LEVEL 6-10 Acetylcysteine 200 mg 01/20/19 16:00 01/21/19 15:38 Mucomyst 20 Oral / Inh Use Only* NEB 200 mg RQID [facility] Administration Albuterol Sulfate 1 amp 01/20/19 16:00 01/21/19 15:38 Ventolin 0.083% Nebulizer Soln - NEB 1 amp RQID [facility] Administration Amino Acids 30 ml 01/21/19 15:37 Prosource No Carb Liquid Pkt GT BID@0800,1730 [facility] Clonazepam 0.5 mg 01/21/19 15:37 Klonopin - GT BID [facility] Docusate Sodium 100 mg 01/21/19 15:38 Colace Liquid - GT DAILY PRN CONSTIPATION Dextrose/Sodium Chloride 1,000 mls @ 42 mls/hr 01/20/19 13:15 01/21/19 13:15 D5-Ns - IV Not Given ASDIR [facility] Piperacillin Sod/Tazobactam 100 mls @ 200 mls/hr 01/20/19 13:30 01/21/19 12: 04 Sod 4.5 gm/ Dextrose IVPB 200 mls/hr Q8H-IV [facility] Administration Protocol Vancomycin HCl 1,000 mg in 250 mls @ 166.667 mls/hr 01/20/19 13:30 01/21/19 14:24 Vancomycin (Pre-Docked) IVPB 166.667 mls/hr 0100,1300 [facility] Administration Protocol Levothyroxine Sodium 88 mcg 01/22/19 07:00 Synthroid - GT DAILY@0700 [facility] Loratadine 10 mg 01/21/19 15:39 Claritin - GT DAILY [facility] Multivitamins/Minerals 15 ml 01/21/19 10:00 Certavite-Antioxidant Liquid PO DAILY [facility] Nortriptyline HCl 50 mg 01/21/19 22:00 Pamelor - PO HS [facility] Nystatin 1 applic 01/20/19 22:00 01/21/19 12:03 Mycostatin Ointment - TP 1 applic BID [facility] Administration Pregabalin 200 mg 01/21/19 14:00 01/21/19 16:42 Lyrica - PO 200 mg TID [facility] Administration Sertraline HCl 100 mg 01/21/19 10:00 01/21/19 10:17 Zoloft - PO Not Given DAILY [facility] Tramadol HCl 50 mg 01/21/19 09:03 Ultram - PO Q8H PRN PAIN LEVEL 7 - 10 Ursodiol 300 mg 01/20/19 22:00 01/21/19 10:17 Actigal - PO Not Given BID [facility] 1. Hyperkalemia 2. Hx of SIADH 3. PNA 4. Multiple sclerosis 5. Anemia 6. Thrombocytoepenia Plan - lytes are improved - potassium improved - monitor sodium - discussed with family
[2019-01-21] MEDS ORDERED: clonazePAM 0.5 MG TABLET GT PRN (17:16)
[2019-01-21] MEDS: MULTIVIT-MINERALS ORAL LIQUID GT SCH (18:15)
[2019-01-21] MEDS: AMINO ACIDS/PROTEIN HYDROLYS 30 ML LIQUID.PKT GT SCH (18:20)
[2019-01-21] MEDS: BACITRACIN 15 GM TUBE TOPICAL OINTMENT TP SCH (18:26)
[2019-01-21] MEDS: NORTRIPTYLINE HCL 25 MG CAPSULE PO SCH (21:12)
[2019-01-22] MEDS: PIPERACILLIN/TAZOB 4.5 GM 4.5 GM in DEXTROSE 5%-WATER 100 ML IVPB SCH ×3 (01:25→18:40)
[2019-01-22] MEDS ORDERED: PIPERACILLIN/TAZOBACTAM 4.5 GM VIAL IVPB ONE ×3 (01:26→18:36)
[2019-01-22] MEDS ORDERED: DEXTROSE 5%-WATER 100 ML IVPB ONE ×3 (01:26→18:37)
[2019-01-22] MEDS: DEXTROSE 5%-NORMAL SALINE 1,000 ML IV SCH ×2 (01:43→14:35)
[2019-01-22] MEDS: VANCOMYCIN 1 GRAM (PRE-DOCKED) 1,000 MG/250 ML BAG IVPB SCH ×2 (02:26→14:34)
[2019-01-22] MEDS: ALBUTEROL SO4 0.083% IH SOL 2.5 MG/3 ML VIAL.NEB. NEB SCH ×4 (07:45→20:40)
[2019-01-22] MEDS: ACETYLCYSTEINE 20% 200MG/ML 4 ML VIAL *FOR ORAL / INH USE ONLY NEB SCH ×4 (07:45→20:40)
[2019-01-22 08:00] LABS: BASO % 0.2 % (0-2.0); EOS % 6.1 % (0-4.5); HEMATOCRIT 26.3 % (32.4-45.2); HEMOGLOBIN 8.8 GM/dL (10.7-15.3); LYMPH % 20.1 % (8-40); MCH 32.5 pg (25.7-33.7); MCHC 33.4 g/dl (32.0-36.0); MEAN CELL VOLUME 97.4 fl (80-96); MEAN PLT VOLUME 10.1 fl (7.5-11.1); MONO % 8.9 % (3.8-10.2); NEUT % 64.7 % (42.8-82.8); PLATELET COUNT 58 K/MM3 (134-434); RDW 15.8 % (11.6-15.6); WHITE BLOOD COUNT 4.2 K/mm3 (4.0-10.0)
[2019-01-22] MEDS: PREGABALIN 100 MG CAPSULE PO SCH ×3 (08:10→22:52)
[2019-01-22] MEDS: LEVOTHYROXINE NA 88 MCG TABLET (FP) GT SCH (08:10)
[2019-01-22 08:42] LABS: ALBUMIN 2.1 g/dl (3.4-5.0); BILIRUBIN,TOTAL 0.5 mg/dL (0.2-1); CREATININE 0.6 mg/dL (0.55-1.3); POTASSIUM 3.9 mmol/L (3.5-5.1); TOT PROT 7.3 g/dl (6.4-8.2)
[2019-01-22] MEDS ORDERED: PT OWN MED DRAWER 7, Y5N ONE ×2 (09:18→22:34)
[2019-01-22] MEDS: IRON POLYSACCHARIDES 150 MG CAPSULE PO SCH (09:35)
[2019-01-22] MEDS: LORATADINE 10 MG TABLET GT SCH (09:35)
[2019-01-22] MEDS: AMINO ACIDS/PROTEIN HYDROLYS 30 ML LIQUID.PKT GT SCH ×2 (09:35→18:40)
[2019-01-22] MEDS: URSODIOL 300 MG CAPSULE PO SCH ×2 (09:35→22:53)
[2019-01-22] MEDS: SERTRALINE HCL 50 MG TABLET (FP) GT SCH (09:35)
--- NOTE | 2019-01-22 11:13 | PN ---
Progress Note, Physician Chief Complaint: Hypoxia Hyponatremia Multiple sclerosis History of Present Illness: NAD [facility] vent feels better Tolerating CPAP - Current Medication List Current Medications: Active Medications Acetaminophen (Tylenol Oral Solution -) 650 mg GT Q6H PRN PRN Reason: PAIN LEVEL 6-10 Last Admin: 01/20/19 02:15 Dose: 650 mg Acetylcysteine (Mucomyst 20 Oral / Inh Use Only*) 200 mg NEB RQID [facility] Last Admin: 01/22/19 07:45 Dose: 200 mg Albuterol Sulfate (Ventolin 0.083% Nebulizer Soln -) 1 amp NEB RQID [facility] Last Admin: 01/22/19 07:45 Dose: 1 amp Amino Acids (Prosource No Carb Liquid Pkt) 30 ml GT BID@0800,1730 [facility] Last Admin: 01/22/19 09:35 Dose: 30 ml Bacitracin (Bacitracin -) 1 applic TP DAILY [facility] Last Admin: 01/21/19 18:26 Dose: 1 applic Clonazepam (Klonopin -) 0.5 mg GT BID PRN PRN Reason: ANXIETY Docusate Sodium (Colace Liquid -) 100 mg GT DAILY PRN PRN Reason: CONSTIPATION Dextrose/Sodium Chloride (D5-Ns -) 1,000 mls @ 42 mls/hr IV ASDIR [facility] Last Admin: 01/22/19 01:43 Dose: 42 mls/hr Piperacillin Sod/Tazobactam (Sod 4.5 gm/ Dextrose) 100 mls @ 200 mls/hr IVPB Q8H-IV [facility]; Protocol Last Admin: 01/22/19 01:25 Dose: 200 mls/hr Vancomycin HCl (Vancomycin (Pre-Docked)) 1,000 mg in 250 mls @ 166.667 mls/hr IVPB 0100,1300 [facility]; Protocol Last Admin: 01/22/19 02:26 Dose: 166.667 mls/hr Levothyroxine Sodium (Synthroid -) 88 mcg GT DAILY@0700 [facility] Last Admin: 01/22/19 08:10 Dose: 88 mcg Loratadine (Claritin -) 10 mg GT DAILY [facility] Last Admin: 01/22/19 09:35 Dose: 10 mg Multivitamins/Minerals (Certavite-Antioxidant Liquid) 15 ml GT DAILY [facility] Last Admin: 01/21/19 18:15 Dose: 1 applic Nortriptyline HCl (Pamelor -) 50 mg PO HS [facility] Last Admin: 01/21/19 21:12 Dose: 50 mg Nystatin (Mycostatin Ointment -) 1 applic TP BID [facility] Last Admin: 01/21/19 21:17 Dose: 1 applic Polysaccharide Iron Complex (Niferex-150 -) 150 mg PO DAILY [facility] Last Admin: 01/22/19 09:35 Dose: 150 mg Pregabalin (Lyrica -) 200 mg PO TID [facility] Last Admin: 01/22/19 08:10 Dose: 200 mg Sertraline HCl (Zoloft -) 100 mg GT DAILY [facility] Last Admin: 01/22/19 09:35 Dose: 100 mg Tramadol HCl (Ultram -) 50 mg PO Q8H PRN PRN Reason: PAIN LEVEL 7 - 10 Ursodiol (Actigal -) 300 mg PO BID [facility] Last Admin: 01/22/19 09:35 Dose: 300 mg - Objective Vital Signs: Vital Signs Temperature 98.1 F 01/22/19 10:00 Pulse Rate 70 01/22/19 10:00 Respiratory Rate 16 01/22/19 10:00 Blood Pressure 117/60 01/22/19 10:00 O2 Sat by Pulse Oximetry (%) 97 01/22/19 08:28 Constitutional: Yes: Well Nourished, No Distress, Calm Cardiovascular: Yes: Regular Rate and Rhythm Respiratory: Yes: Mechanically Ventilated, Rhonchi (diffuse) Gastrointestinal: Yes: Normal Bowel Sounds, Soft Genitourinary: Yes: Raza Present Musculoskeletal: Yes: Muscle Weakness, Other (generalized atrophy) Extremities: Yes: WNL Edema: No Peripheral Pulses WNL: Yes Neurological: Yes: Alert, Oriented Psychiatric: Yes: Alert, Oriented Labs: CBC, BMP 01/22/19 07:25 01/22/19 07:25 Problem List - Problems (1) Dislodged gastrostomy tube Assessment/Plan: -G tube changed by GI -Inserted 18 fr G tube Problems reviewed: Yes Code(s): Z43.1 - ENCOUNTER FOR ATTENTION TO GASTROSTOMY Assessment/Plan (1) Chronic hypercapnic respiratory failure Assessment/Plan: -Pulm on board -Bronchodilators -Mucomyst -Mechanically ventilated -ABGs -keep SpO2 >90% -CXR shows progressive right infiltrate with fluid -Aspiration precautions -Sit up patient for any oral feedings -Seen by MIDWIFE- elisabeth to have dysphagia puree, nector thin liquids Code(s): J96.12 - CHRONIC RESPIRATORY FAILURE WITH HYPERCAPNIA (2) Functional quadriplegia Assessment/Plan: -PT -fall risk Code(s): R53.2 - FUNCTIONAL QUADRIPLEGIA (3) Hypotension Assessment/Plan: -Cardiology consult -monitor BP Code(s): I95.9 - HYPOTENSION, UNSPECIFIED (4) Hypothyroid Assessment/Plan: -resume levothyroxie Code(s): E03.9 - HYPOTHYROIDISM, UNSPECIFIED (5) Sacral decubitus ulcer, stage IV Assessment/Plan: -Offloading -turn q2h -Plastic Surgery consult -Vascular consult Code(s): L89.154 - PRESSURE ULCER OF SACRAL REGION, STAGE 4 (6) Aspiration pneumonia Assessment/Plan: -ID on board -no leukocytosis -Vancomycin, Zosyn -Legionella negative -BC/SC Microbiology 01/20/19 15:25 Sputum - Endotrachea Suction/Ventilator Gram Stain - Final 01/20/19 06:00 Urine - Urine Raza Urine Culture - Final Gram Negative Adam 01/19/19 19:00 Blood - Peripheral Venous Blood Culture - Preliminary NO GROWTH OBTAINED AFTER 24 HOURS, INCUBATION TO CONTINUE FOR 4 DAYS. 01/19/19 18:55 Blood - Peripheral Venous Blood Culture - Preliminary NO GROWTH OBTAINED AFTER 24 HOURS, INCUBATION TO CONTINUE FOR 4 DAYS. 01/20/19 06:00 Urine For Antigen Detection Legionella Antigen - Final 01/20/19 06:00 Urine For Antigen Detection Streptococcus pneumoniae Antigen (M - Final -Pulm on board -Bronchodilators -Mucomyst -Mechanically ventilated -keep SpO2 >90% -CXR shows progressive right infiltrate with fluid -Aspiration precautions -Dietary consult -MIDWIFE consult -LA normal -Wean as tolerated -Trial of trach collar in AM Code(s): J69.0 - PNEUMONITIS DUE TO INHALATION OF FOOD AND VOMIT (7) Acute renal insufficiency Assessment/Plan: -Renal consult -monitor renal function Code(s): N28.9 - DISORDER OF KIDNEY AND URETER, UNSPECIFIED (8) Cholelithiasis Assessment/Plan: -Actigal Code(s): K80.20 - CALCULUS OF GALLBLADDER W/O CHOLECYSTITIS W/O OBSTRUCTION (9) Anemia Assessment/Plan: -chronic, multifactorial -monitor Hg daily -transfuse for Hg <7.0 -Check Thyroid, and iron profile Code(s): D64.9 - ANEMIA, UNSPECIFIED (10) Hypothermia Assessment/Plan: -DAHLIA Hugger Code(s): T68.XXXA - HYPOTHERMIA, INITIAL ENCOUNTER Assessment/Plan see problem list dvt ppx
--- NOTE | 2019-01-22 11:24 | PN ---
Progress Note, Physician History of Present Illness: PULMONARY ALERT,COMFORTABLE,ON CPAP WITH PRESSURE SUPPORT - Current Medication List Current Medications: Active Medications Acetaminophen (Tylenol Oral Solution -) 650 mg GT Q6H PRN PRN Reason: PAIN LEVEL 6-10 Last Admin: 01/20/19 02:15 Dose: 650 mg Acetylcysteine (Mucomyst 20 Oral / Inh Use Only*) 200 mg NEB RQID [facility] Last Admin: 01/22/19 07:45 Dose: 200 mg Albuterol Sulfate (Ventolin 0.083% Nebulizer Soln -) 1 amp NEB RQID [facility] Last Admin: 01/22/19 07:45 Dose: 1 amp Amino Acids (Prosource No Carb Liquid Pkt) 30 ml GT BID@0800,1730 [facility] Last Admin: 01/22/19 09:35 Dose: 30 ml Bacitracin (Bacitracin -) 1 applic TP DAILY [facility] Last Admin: 01/21/19 18:26 Dose: 1 applic Clonazepam (Klonopin -) 0.5 mg GT BID PRN PRN Reason: ANXIETY Docusate Sodium (Colace Liquid -) 100 mg GT DAILY PRN PRN Reason: CONSTIPATION Dextrose/Sodium Chloride (D5-Ns -) 1,000 mls @ 42 mls/hr IV ASDIR [facility] Last Admin: 01/22/19 01:43 Dose: 42 mls/hr Piperacillin Sod/Tazobactam (Sod 4.5 gm/ Dextrose) 100 mls @ 200 mls/hr IVPB Q8H-IV [facility]; Protocol Last Admin: 01/22/19 01:25 Dose: 200 mls/hr Vancomycin HCl (Vancomycin (Pre-Docked)) 1,000 mg in 250 mls @ 166.667 mls/hr IVPB 0100,1300 [facility]; Protocol Last Admin: 01/22/19 02:26 Dose: 166.667 mls/hr Levothyroxine Sodium (Synthroid -) 88 mcg GT DAILY@0700 [facility] Last Admin: 01/22/19 08:10 Dose: 88 mcg Loratadine (Claritin -) 10 mg GT DAILY [facility] Last Admin: 01/22/19 09:35 Dose: 10 mg Multivitamins/Minerals (Certavite-Antioxidant Liquid) 15 ml GT DAILY [facility] Last Admin: 01/21/19 18:15 Dose: 1 applic Nortriptyline HCl (Pamelor -) 50 mg PO HS [facility] Last Admin: 01/21/19 21:12 Dose: 50 mg Nystatin (Mycostatin Ointment -) 1 applic TP BID [facility] Last Admin: 01/21/19 21:17 Dose: 1 applic Polysaccharide Iron Complex (Niferex-150 -) 150 mg PO DAILY [facility] Last Admin: 01/22/19 09:35 Dose: 150 mg Pregabalin (Lyrica -) 200 mg PO TID [facility] Last Admin: 01/22/19 08:10 Dose: 200 mg Sertraline HCl (Zoloft -) 100 mg GT DAILY [facility] Last Admin: 01/22/19 09:35 Dose: 100 mg Tramadol HCl (Ultram -) 50 mg PO Q8H PRN PRN Reason: PAIN LEVEL 7 - 10 Ursodiol (Actigal -) 300 mg PO BID [facility] Last Admin: 01/22/19 09:35 Dose: 300 mg - Objective Vital Signs: Vital Signs Temperature 98.1 F 01/22/19 10:00 Pulse Rate 70 01/22/19 10:00 Respiratory Rate 16 01/22/19 10:00 Blood Pressure 117/60 01/22/19 10:00 O2 Sat by Pulse Oximetry (%) 97 01/22/19 08:28 Constitutional: Yes: Well Nourished, Calm Eyes: Yes: WNL HENT: Yes: WNL Neck: Yes: Supple (TRACH) Cardiovascular: Yes: Regular Rate and Rhythm, S1, S2 Respiratory: Yes: Rhonchi (FEW SCATTERED RHONCHI) Gastrointestinal: Yes: Normal Bowel Sounds, Soft Extremities: Yes: WNL Edema: Yes Labs: CBC, BMP 01/22/19 07:25 01/22/19 07:25 - ....Imaging Chest X-ray: Report Reviewed, Image Reviewed (IMPROVING RUL INFILTRATE) Problem List - Problems (1) Hypothermia Code(s): T68.XXXA - HYPOTHERMIA, INITIAL ENCOUNTER (2) Ventilator associated pneumonia Code(s): J95.851 - VENTILATOR ASSOCIATED PNEUMONIA (3) Abnormal LFTs Code(s): R94.5 - ABNORMAL RESULTS OF LIVER FUNCTION STUDIES (4) Acute on chronic respiratory failure with hypoxia and hypercapnia Code(s): J96.21 - ACUTE AND CHRONIC RESPIRATORY FAILURE WITH HYPOXIA; J96.22 - ACUTE AND CHRONIC RESPIRATORY FAILURE WITH HYPERCAPNIA (5) Anemia Code(s): D64.9 - ANEMIA, UNSPECIFIED (6) Aspiration pneumonia Code(s): J69.0 - PNEUMONITIS DUE TO INHALATION OF FOOD AND VOMIT (7) Functional quadriplegia Code(s): R53.2 - FUNCTIONAL QUADRIPLEGIA (8) Functional 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 (9) HTN (hypertension) Code(s): I10 - ESSENTIAL (PRIMARY) HYPERTENSION (10) Hypernatremia Code(s): E87.0 - HYPEROSMOLALITY AND HYPERNATREMIA (11) Hypotension Code(s): I95.9 - HYPOTENSION, UNSPECIFIED (12) Multiple sclerosis Code(s): G35 - MULTIPLE SCLEROSIS (13) Neurogenic bladder Code(s): N31.9 - NEUROMUSCULAR DYSFUNCTION OF BLADDER, UNSPECIFIED (14) Presence of intrathecal baclofen pump Code(s): Z98.89 - OTHER SPECIFIED POSTPROCEDURAL STATES * DO NOT USE * (15) Respiratory acidosis Code(s): E87.2 - ACIDOSIS (16) Tracheostomy care Code(s): Z43.0 - ENCOUNTER FOR ATTENTION TO TRACHEOSTOMY (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 Assessment/Plan IMP ACUTE ON CHRONIC HYPOXEMIC/HYPERCAPNEIC RESPIRATORY FAILURE ACUTE RUL PNEUMONIA LIKELY ASPIRATION IMPROVING ADVANCED MULTIPLE SCLEROSIS ,S/P TRACH FUNCTIONAL QUADRIPLEGIA RECURRENT UTIS HTN HLD HYPOTHERMIA ANEMIA THROMBOCYTOPENIA PLAN VENT SUPPORT WEAN TOLERATED INHALED BRONCHODILATORS MUCOMYST ABX PER ID IVF TRACHEAL SUCTIONING F//U CHEST X-RAYS NUTRITIONAL SUPPORT MONITOR LYTES,CBC DR ELDER Problem List - Problems (1) Hypothermia Code(s): T68.XXXA - HYPOTHERMIA, INITIAL ENCOUNTER (2) Ventilator associated pneumonia Code(s): J95.851 - VENTILATOR ASSOCIATED PNEUMONIA (3) Abnormal LFTs Code(s): R94.5 - ABNORMAL RESULTS OF LIVER FUNCTION STUDIES (4) Acute on chronic respiratory failure with hypoxia and hypercapnia Code(s): J96.21 - ACUTE AND CHRONIC RESPIRATORY FAILURE WITH HYPOXIA; J96.22 - ACUTE AND CHRONIC RESPIRATORY FAILURE WITH HYPERCAPNIA (5) Anemia Code(s): D64.9 - ANEMIA, UNSPECIFIED (6) Aspiration pneumonia Code(s): J69.0 - PNEUMONITIS DUE TO INHALATION OF FOOD AND VOMIT (7) Functional quadriplegia Code(s): R53.2 - FUNCTIONAL QUADRIPLEGIA (8) Functional 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 (9) HTN (hypertension) Code(s): I10 - ESSENTIAL (PRIMARY) HYPERTENSION (10) Hypernatremia Code(s): E87.0 - HYPEROSMOLALITY AND HYPERNATREMIA (11) Hypotension Code(s): I95.9 - HYPOTENSION, UNSPECIFIED (12) Multiple sclerosis Code(s): G35 - MULTIPLE SCLEROSIS (13) Neurogenic bladder Code(s): N31.9 - NEUROMUSCULAR DYSFUNCTION OF BLADDER, UNSPECIFIED (14) Presence of intrathecal baclofen pump Code(s): Z98.89 - OTHER SPECIFIED POSTPROCEDURAL STATES * DO NOT USE * (15) Respiratory acidosis Code(s): E87.2 - ACIDOSIS (16) Tracheostomy care Code(s): Z43.0 - ENCOUNTER FOR ATTENTION TO TRACHEOSTOMY (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
[2019-01-22] MEDS: NYSTATIN 100000 UNIT/GM TOPICAL OINTMENT 15 GM TUBE TP SCH ×2 (12:09→23:13)
[2019-01-22] MEDS: BACITRACIN 15 GM TUBE TOPICAL OINTMENT TP SCH (12:10)
[2019-01-22] MEDS: MULTIVIT-MINERALS ORAL LIQUID GT SCH (15:18)
[2019-01-22] MEDS: ACETAMINOPHEN 650 MG/20.3 ML ORAL SOLUTION (CUPS) GT PRN (15:54)
--- NOTE | 2019-01-22 18:05 | PN ---
Progress Note, Physician History of Present Illness: Pt seen and examined at bedside. No great change. - Current Medication List Current Medications: Active Medications Acetaminophen (Tylenol Oral Solution -) 650 mg GT Q6H PRN PRN Reason: PAIN LEVEL 6-10 Last Admin: 01/22/19 15:54 Dose: 650 mg Acetylcysteine (Mucomyst 20 Oral / Inh Use Only*) 200 mg NEB RQID [facility] Last Admin: 01/22/19 16:07 Dose: 200 mg Albuterol Sulfate (Ventolin 0.083% Nebulizer Soln -) 1 amp NEB RQID [facility] Last Admin: 01/22/19 16:07 Dose: 1 amp Amino Acids (Prosource No Carb Liquid Pkt) 30 ml GT BID@0800,1730 [facility] Last Admin: 01/22/19 09:35 Dose: 30 ml Bacitracin (Bacitracin -) 1 applic TP DAILY [facility] Last Admin: 01/22/19 12:10 Dose: Not Given Clonazepam (Klonopin -) 0.5 mg GT BID PRN PRN Reason: ANXIETY Docusate Sodium (Colace Liquid -) 100 mg GT DAILY PRN PRN Reason: CONSTIPATION Dextrose/Sodium Chloride (D5-Ns -) 1,000 mls @ 42 mls/hr IV ASDIR [facility] Last Admin: 01/22/19 14:35 Dose: Not Given Piperacillin Sod/Tazobactam (Sod 4.5 gm/ Dextrose) 100 mls @ 200 mls/hr IVPB Q8H-IV [facility]; Protocol Last Admin: 01/22/19 11:51 Dose: 200 mls/hr Vancomycin HCl (Vancomycin (Pre-Docked)) 1,000 mg in 250 mls @ 166.667 mls/hr IVPB 0100,1300 [facility]; Protocol Last Admin: 01/22/19 14:34 Dose: 166.667 mls/hr Levothyroxine Sodium (Synthroid -) 88 mcg GT DAILY@0700 [facility] Last Admin: 01/22/19 08:10 Dose: 88 mcg Loratadine (Claritin -) 10 mg GT DAILY [facility] Last Admin: 01/22/19 09:35 Dose: 10 mg Multivitamins/Minerals (Certavite-Antioxidant Liquid) 15 ml GT DAILY [facility] Last Admin: 01/22/19 15:18 Dose: 15 applic Nortriptyline HCl (Pamelor -) 50 mg PO HS [facility] Last Admin: 01/21/19 21:12 Dose: 50 mg Nystatin (Mycostatin Ointment -) 1 applic TP BID [facility] Last Admin: 01/22/19 12:09 Dose: 1 applic Polysaccharide Iron Complex (Niferex-150 -) 150 mg PO DAILY [facility] Last Admin: 01/22/19 09:35 Dose: 150 mg Pregabalin (Lyrica -) 200 mg PO TID [facility] Last Admin: 01/22/19 14:43 Dose: 200 mg Sertraline HCl (Zoloft -) 100 mg GT DAILY [facility] Last Admin: 01/22/19 09:35 Dose: 100 mg Tramadol HCl (Ultram -) 50 mg PO Q8H PRN PRN Reason: PAIN LEVEL 7 - 10 Ursodiol (Actigal -) 300 mg PO BID [facility] Last Admin: 01/22/19 09:35 Dose: 300 mg - Objective Vital Signs: Vital Signs Temperature 98.4 F 01/22/19 15:00 Pulse Rate 67 01/22/19 15:00 Respiratory Rate 17 01/22/19 16:02 Blood Pressure 118/67 01/22/19 15:00 O2 Sat by Pulse Oximetry (%) 98 01/22/19 16:02 Constitutional: Yes: Calm Eyes: Yes: Conjunctiva Clear Neck: Yes: Other (trache) Cardiovascular: Yes: S1, S2 Gastrointestinal: Yes: Soft Genitourinary: Yes: Raza Present Musculoskeletal: Yes: Muscle Weakness Edema: Yes Neurological: Yes: Pre-Existing Deficit Labs: CBC, BMP 01/22/19 07:25 01/22/19 07:25 Assessment/Plan Current Medications Generic Name Dose Route Start Last Admin Trade Name Freq PRN Reason Stop Dose Admin Acetaminophen 650 mg 01/20/19 01:57 01/22/19 15:54 Tylenol Oral Solution - GT 650 mg Q6H PRN Administration PAIN LEVEL 6-10 Acetylcysteine 200 mg 01/20/19 16:00 01/22/19 16:07 Mucomyst 20 Oral / Inh Use Only* NEB 200 mg RQID [facility] Administration Albuterol Sulfate 1 amp 01/20/19 16:00 01/22/19 16:07 Ventolin 0.083% Nebulizer Soln - NEB 1 amp RQID [facility] Administration Amino Acids 30 ml 01/21/19 15:37 01/22/19 09:35 Prosource No Carb Liquid Pkt GT 30 ml BID@0800,1730 [facility] Administration Bacitracin 1 applic 01/21/19 17:15 01/22/19 12:10 Bacitracin - TP Not Given DAILY [facility] Clonazepam 0.5 mg 01/21/19 17:16 Klonopin - GT BID PRN ANXIETY Docusate Sodium 100 mg 01/21/19 15:38 Colace Liquid - GT DAILY PRN CONSTIPATION Dextrose/Sodium Chloride 1,000 mls @ 42 mls/hr 01/20/19 13:15 01/22/19 14:35 D5-Ns - IV Not Given ASDIR [facility] Piperacillin Sod/Tazobactam 100 mls @ 200 mls/hr 01/20/19 13:30 01/22/19 11: 51 Sod 4.5 gm/ Dextrose IVPB 200 mls/hr Q8H-IV [facility] Administration Protocol Vancomycin HCl 1,000 mg in 250 mls @ 166.667 mls/hr 01/20/19 13:30 01/22/19 14:34 Vancomycin (Pre-Docked) IVPB 166.667 mls/hr 0100,1300 [facility] Administration Protocol Levothyroxine Sodium 88 mcg 01/22/19 07:00 01/22/19 08:10 Synthroid - GT 88 mcg DAILY@0700 [facility] Administration Loratadine 10 mg 01/21/19 15:39 01/22/19 09:35 Claritin - GT 10 mg DAILY [facility] Administration Multivitamins/Minerals 15 ml 01/21/19 17:04 01/22/19 15:18 Certavite-Antioxidant Liquid GT 15 applic DAILY [facility] Administration Nortriptyline HCl 50 mg 01/21/19 22:00 01/21/19 21:12 Pamelor - PO 50 mg HS [facility] Administration Nystatin 1 applic 01/20/19 22:00 01/22/19 12:09 Mycostatin Ointment - TP 1 applic BID [facility] Administration Polysaccharide Iron Complex 150 mg 01/22/19 10:00 01/22/19 09:35 Niferex-150 - PO 150 mg DAILY [facility] Administration Pregabalin 200 mg 01/21/19 14:00 01/22/19 14:43 Lyrica - PO 200 mg TID [facility] Administration Sertraline HCl 100 mg 01/21/19 17:16 01/22/19 09:35 Zoloft - GT 100 mg DAILY [facility] Administration Tramadol HCl 50 mg 01/21/19 09:03 Ultram - PO Q8H PRN PAIN LEVEL 7 - 10 Ursodiol 300 mg 01/20/19 22:00 01/22/19 09:35 Actigal - PO 300 mg BID [facility] Administration 1. Hyperkalemia 2. Hx of SIADH 3. PNA 4. Multiple sclerosis 5. Anemia 6. Thrombocytoepenia Plan - sodium stable - potassium stable - cont current management - discussed with family
[2019-01-22] MEDS: NORTRIPTYLINE HCL 25 MG CAPSULE PO SCH (22:53)
[2019-01-22] MEDS: traMADol HCL 50 MG TABLET PO PRN (22:54)
[2019-01-23] MEDS ORDERED: PIPERACILLIN/TAZOBACTAM 4.5 GM VIAL IVPB ONE ×2 (01:07→09:01)
[2019-01-23] MEDS ORDERED: DEXTROSE 5%-WATER 100 ML IVPB ONE ×3 (01:07→17:36)
[2019-01-23] MEDS: PIPERACILLIN/TAZOB 4.5 GM 4.5 GM in DEXTROSE 5%-WATER 100 ML IVPB SCH ×2 (01:18→09:06)
[2019-01-23] MEDS ORDERED: PT OWN MED DRAWER 7, Y5N ONE ×3 (01:23→22:54)
[2019-01-23] MEDS: VANCOMYCIN 1 GRAM (PRE-DOCKED) 1,000 MG/250 ML BAG IVPB SCH ×2 (02:00→12:30)
[2019-01-23] MEDS: PREGABALIN 100 MG CAPSULE PO SCH ×3 (06:39→23:03)
[2019-01-23] MEDS: LEVOTHYROXINE NA 88 MCG TABLET (FP) GT SCH (06:39)
[2019-01-23] MEDS: ACETYLCYSTEINE 20% 200MG/ML 4 ML VIAL *FOR ORAL / INH USE ONLY NEB SCH ×4 (07:00→21:18)
[2019-01-23] MEDS: ALBUTEROL SO4 0.083% IH SOL 2.5 MG/3 ML VIAL.NEB. NEB SCH ×4 (07:01→21:19)
[2019-01-23 08:27] LABS: BASO % 0.2 % (0-2.0); EOS % 10.1 % (0-4.5); HEMATOCRIT 27.7 % (32.4-45.2); HEMOGLOBIN 9.1 GM/dL (10.7-15.3); LYMPH % 25.6 % (8-40); MCH 32.5 pg (25.7-33.7); MCHC 32.9 g/dl (32.0-36.0); MEAN CELL VOLUME 98.6 fl (80-96); MEAN PLT VOLUME 10.3 fl (7.5-11.1); MONO % 9.4 % (3.8-10.2); NEUT % 54.7 % (42.8-82.8); PLATELET COUNT 69 K/MM3 (134-434); RBC 2.81 M/mm3 (3.60-5.2); RDW 16.1 % (11.6-15.6)
[2019-01-23] MEDS: AMINO ACIDS/PROTEIN HYDROLYS 30 ML LIQUID.PKT GT SCH ×2 (08:35→17:40)
[2019-01-23] MEDS: SERTRALINE HCL 50 MG TABLET (FP) GT SCH (09:06)
[2019-01-23] MEDS: URSODIOL 300 MG CAPSULE PO SCH ×2 (09:06→23:03)
[2019-01-23] MEDS: LORATADINE 10 MG TABLET GT SCH (09:06)
[2019-01-23] MEDS: MULTIVIT-MINERALS ORAL LIQUID GT SCH (09:06)
[2019-01-23] MEDS: IRON POLYSACCHARIDES 150 MG CAPSULE PO SCH (09:07)
[2019-01-23] MEDS: BACITRACIN 15 GM TUBE TOPICAL OINTMENT TP SCH (09:07)
[2019-01-23] MEDS: NYSTATIN 100000 UNIT/GM TOPICAL OINTMENT 15 GM TUBE TP SCH ×2 (09:14→23:04)
--- NOTE | 2019-01-23 09:48 | CONS ---
DATE OF CONSULTATION: 01/20/2019 PULMONARY CONSULTATION REFERRING PHYSICIAN: Anne Lopez M.D. HISTORY OF PRESENT ILLNESS: The patient is a 53-year-old female known to me from previous hospitalization with a past medical history that includes events of multiple sclerosis, and dependent status post trach with functional quadriplegia , hypercholesterolemia, hyperlipidemia, recurring UTIs, history of sepsis, recurrent history of pneumonia, chronic constipation, chronic decubitus, admitted to [facility] on January 19 secondary to dislodged GT tube During course of her ED visit, she developed hypoxia. ABG revealed acute on chronic hypercapnic, hypoxemic respiratory failure. Chest x- ray performed which reveals right upper lobe infiltrate. Hospitalization, the patient became hypoxemic, hypotensive, and resuscitated with IV fluids. Patient was transferred to medical floor for further management. The patient does have a history of aspiration. Hospitalizations significant for progressive hypoxemia, respiratory distress and upon tracheal suctioning, improved with removal of mucous plug. PAST MEDICAL HISTORY: Again includes advanced multiple sclerosis, vent dependent, status post trach, quadriplegia, hypertension, hyperlipidemia, history of pneumonia ,history of sepsis, recurrent UTIs, recurrent urosepsis, neurogenic bladder, chronic Raza, chronic decubitus. REVIEW OF SYSTEMS: Unable to obtain. CURRENT MEDICATIONS: Include Tylenol, Zosy, vancomycin, Lyrica, Zoloft, Klonopin, albuterol, D5 normal saline, Colace, Actigall, Mucomyst,Mycostatin. PHYSICAL EXAMINATION: General: The patient is a chronically ill appearing female, well developed, awake on vent support. She is currently afebrile. Vital Signs: Blood pressure 129/65, respiratory rate 20, O2 saturation 94% on 40% oxygen, not sure what the vent settings are. HEENT: Normocephalic, atraumatic. Neck: Supple. Trach is patent. Heart: Regular S1, S2. Chest: Scattered bilateral rhonchi. Abdomen: Soft, bowel sounds positive. Extremities: Contracted lower extremities. No edema. LABORATORY: WBC 4.9, hemoglobin 9.7, hematocrit 30.1, platelet count of 51, 000. Of note, platelet count on admission was 138,000. Initial blood gas: pH of 7.25, pCO2 of 80, pO2 of 129, bicarbonate of 33, and a saturation of 98, that was on trach collar. Repeat 7.33, pCO2 of 59, pO2 of 79, bicarbonate of 30, and a saturation of 95.2. Chemistries: BUN 29, creatinine 0.5, AST 50, alkaline phosphatase 266. Chest x-ray, right upper lobe infiltrate, which is new from previous exams. IMPRESSION: 1. Acute on chronic hypercapnic, hypoxemic respiratory failure secondary to acute right upper lobe pneumonia, likely aspiration. 2. Advanced multiple sclerosis vent dependent, status post trach. 3. Functional quadriplegia. 4. Recurrent urinary tract infections. 5. Hypertension. 6. Hyperlipidemia. 7. Hypothermia. 8. Anemia. 9. Thrombocytopenia. PLAN: Vent support on assist control mode, obtain followup arterial blood gases , inhaled bronchodilators, continue Mucomyst, antibiotics as per infectious disease, obtain cultures, IV fluid, tracheal suctioning, followup chest x-rays, nutritional support, monitor electrolytes, CBC, platelet count, obtain cultures. DEE ELDER M.D. [id number] MTDD
[2019-01-23 09:53] LABS: ALBUMIN 2.3 g/dl (3.4-5.0); BILIRUBIN,TOTAL 0.8 mg/dL (0.2-1); BLOOD UREA NITROGEN 27.1 mg/dL (7-18); CALCIUM 8.9 mg/dL (8.5-10.1); CREATININE 0.7 mg/dL (0.55-1.3); POTASSIUM 3.7 mmol/L (3.5-5.1); TOT PROT 7.5 g/dl (6.4-8.2)
[2019-01-23 10:55] LABS: PLATELET ESTIMATE DECREASED
--- NOTE | 2019-01-23 11:02 | PN ---
Progress Note, Physician History of Present Illness: pulmonary awake,comfortable on cpap with ps - Current Medication List Current Medications: Active Medications Acetaminophen (Tylenol Oral Solution -) 650 mg GT Q6H PRN PRN Reason: PAIN LEVEL 6-10 Last Admin: 01/22/19 15:54 Dose: 650 mg Acetylcysteine (Mucomyst 20 Oral / Inh Use Only*) 200 mg NEB RQID [facility] Last Admin: 01/23/19 07:00 Dose: 200 mg Albuterol Sulfate (Ventolin 0.083% Nebulizer Soln -) 1 amp NEB RQID [facility] Last Admin: 01/23/19 07:01 Dose: 1 amp Amino Acids (Prosource No Carb Liquid Pkt) 30 ml GT BID@0800,1730 [facility] Last Admin: 01/23/19 08:35 Dose: 30 ml Bacitracin (Bacitracin -) 1 applic TP DAILY [facility] Last Admin: 01/23/19 09:07 Dose: Not Given Clonazepam (Klonopin -) 0.5 mg GT BID PRN PRN Reason: ANXIETY Docusate Sodium (Colace Liquid -) 100 mg GT DAILY PRN PRN Reason: CONSTIPATION Dextrose/Sodium Chloride (D5-Ns -) 1,000 mls @ 42 mls/hr IV ASDIR [facility] Last Admin: 01/22/19 14:35 Dose: Not Given Piperacillin Sod/Tazobactam (Sod 4.5 gm/ Dextrose) 100 mls @ 200 mls/hr IVPB Q8H-IV [facility]; Protocol Last Admin: 01/23/19 09:06 Dose: 200 mls/hr Vancomycin HCl (Vancomycin (Pre-Docked)) 1,000 mg in 250 mls @ 166.667 mls/hr IVPB 0100,1300 [facility]; Protocol Last Admin: 01/23/19 02:00 Dose: 166.667 mls/hr Levothyroxine Sodium (Synthroid -) 88 mcg GT DAILY@0700 [facility] Last Admin: 01/23/19 06:39 Dose: 88 mcg Loratadine (Claritin -) 10 mg GT DAILY [facility] Last Admin: 01/23/19 09:06 Dose: 10 mg Multivitamins/Minerals (Certavite-Antioxidant Liquid) 15 ml GT DAILY [facility] Last Admin: 01/23/19 09:06 Dose: 15 ml Nortriptyline HCl (Pamelor -) 50 mg PO HS [facility] Last Admin: 01/22/19 22:53 Dose: 50 mg Nystatin (Mycostatin Ointment -) 1 applic TP BID [facility] Last Admin: 01/23/19 09:14 Dose: 1 applic Polysaccharide Iron Complex (Niferex-150 -) 150 mg PO DAILY [facility] Last Admin: 01/23/19 09:07 Dose: 150 mg Pregabalin (Lyrica -) 200 mg PO TID [facility] Last Admin: 01/23/19 06:39 Dose: 200 mg Sertraline HCl (Zoloft -) 100 mg GT DAILY [facility] Last Admin: 01/23/19 09:06 Dose: 100 mg Tramadol HCl (Ultram -) 50 mg PO Q8H PRN PRN Reason: PAIN LEVEL 7 - 10 Last Admin: 01/22/19 22:54 Dose: 50 mg Ursodiol (Actigal -) 300 mg PO BID [facility] Last Admin: 01/23/19 09:06 Dose: 300 mg - Objective Vital Signs: Vital Signs Temperature 98.2 F 01/23/19 09:26 Pulse Rate 64 01/23/19 09:26 Respiratory Rate 17 01/23/19 10:30 Blood Pressure 92/56 L 01/23/19 09:26 O2 Sat by Pulse Oximetry (%) 98 01/23/19 08:31 Constitutional: Yes: Well Nourished, Calm Eyes: Yes: WNL HENT: Yes: WNL Neck: Yes: Supple (trach) Cardiovascular: Yes: Regular Rate and Rhythm, S1, S2 Respiratory: Yes: Rhonchi (few rhonchi) Gastrointestinal: Yes: Normal Bowel Sounds, Soft Extremities: Yes: WNL Edema: Yes Labs: CBC, BMP 01/23/19 07:54 01/23/19 07:54 Problem List - Problems (1) Hypothermia Code(s): T68.XXXA - HYPOTHERMIA, INITIAL ENCOUNTER (2) Ventilator associated pneumonia Code(s): J95.851 - VENTILATOR ASSOCIATED PNEUMONIA (3) Abnormal LFTs Code(s): R94.5 - ABNORMAL RESULTS OF LIVER FUNCTION STUDIES (4) Acute on chronic respiratory failure with hypoxia and hypercapnia Code(s): J96.21 - ACUTE AND CHRONIC RESPIRATORY FAILURE WITH HYPOXIA; J96.22 - ACUTE AND CHRONIC RESPIRATORY FAILURE WITH HYPERCAPNIA (5) Anemia Code(s): D64.9 - ANEMIA, UNSPECIFIED (6) Aspiration pneumonia Code(s): J69.0 - PNEUMONITIS DUE TO INHALATION OF FOOD AND VOMIT (7) Functional quadriplegia Code(s): R53.2 - FUNCTIONAL QUADRIPLEGIA (8) Functional 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 (9) HTN (hypertension) Code(s): I10 - ESSENTIAL (PRIMARY) HYPERTENSION (10) Hypernatremia Code(s): E87.0 - HYPEROSMOLALITY AND HYPERNATREMIA (11) Hypotension Code(s): I95.9 - HYPOTENSION, UNSPECIFIED (12) Multiple sclerosis Code(s): G35 - MULTIPLE SCLEROSIS (13) Neurogenic bladder Code(s): N31.9 - NEUROMUSCULAR DYSFUNCTION OF BLADDER, UNSPECIFIED (14) Presence of intrathecal baclofen pump Code(s): Z98.89 - OTHER SPECIFIED POSTPROCEDURAL STATES * DO NOT USE * (15) Respiratory acidosis Code(s): E87.2 - ACIDOSIS (16) Tracheostomy care Code(s): Z43.0 - ENCOUNTER FOR ATTENTION TO TRACHEOSTOMY (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 Assessment/Plan IMP ACUTE ON CHRONIC HYPOXEMIC/HYPERCAPNEIC RESPIRATORY FAILURE ACUTE RUL PNEUMONIA LIKELY ASPIRATION IMPROVING ADVANCED MULTIPLE SCLEROSIS ,S/P TRACH FUNCTIONAL QUADRIPLEGIA RECURRENT UTIS HTN HLD HYPOTHERMIA ANEMIA THROMBOCYTOPENIA PLAN VENT SUPPORT WEAN TOLERATED TRACH COLLAR TOLERATED INHALED BRONCHODILATORS MUCOMYST ABX PER ID IVF TRACHEAL SUCTIONING F//U CHEST X-RAYS NUTRITIONAL SUPPORT MONITOR SHANTI HORTA DR Problem List - Problems (1) Hypothermia Code(s): T68.XXXA - HYPOTHERMIA, INITIAL ENCOUNTER (2) Ventilator associated pneumonia Code(s): J95.851 - VENTILATOR ASSOCIATED PNEUMONIA (3) Abnormal LFTs Code(s): R94.5 - ABNORMAL RESULTS OF LIVER FUNCTION STUDIES (4) Acute on chronic respiratory failure with hypoxia and hypercapnia Code(s): J96.21 - ACUTE AND CHRONIC RESPIRATORY FAILURE WITH HYPOXIA; J96.22 - ACUTE AND CHRONIC RESPIRATORY FAILURE WITH HYPERCAPNIA (5) Anemia Code(s): D64.9 - ANEMIA, UNSPECIFIED (6) Aspiration pneumonia Code(s): J69.0 - PNEUMONITIS DUE TO INHALATION OF FOOD AND VOMIT (7) Functional quadriplegia Code(s): R53.2 - FUNCTIONAL QUADRIPLEGIA (8) Functional 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 (9) HTN (hypertension) Code(s): I10 - ESSENTIAL (PRIMARY) HYPERTENSION (10) Hypernatremia Code(s): E87.0 - HYPEROSMOLALITY AND HYPERNATREMIA (11) Hypotension Code(s): I95.9 - HYPOTENSION, UNSPECIFIED (12) Multiple sclerosis Code(s): G35 - MULTIPLE SCLEROSIS (13) Neurogenic bladder Code(s): N31.9 - NEUROMUSCULAR DYSFUNCTION OF BLADDER, UNSPECIFIED (14) Presence of intrathecal baclofen pump Code(s): Z98.89 - OTHER SPECIFIED POSTPROCEDURAL STATES * DO NOT USE * (15) Respiratory acidosis Code(s): E87.2 - ACIDOSIS (16) Tracheostomy care Code(s): Z43.0 - ENCOUNTER FOR ATTENTION TO TRACHEOSTOMY (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
--- NOTE | 2019-01-23 12:09 | PN ---
Progress Note, Physician Chief Complaint: Hypotension Hypoxia Multiple Sclerosis History of Present Illness: Previous notes and events reviewed awake and alert NAD temp improved and no longer hypothermic - Current Medication List Current Medications: Active Medications Acetaminophen (Tylenol Oral Solution -) 650 mg GT Q6H PRN PRN Reason: PAIN LEVEL 6-10 Last Admin: 01/22/19 15:54 Dose: 650 mg Acetylcysteine (Mucomyst 20 Oral / Inh Use Only*) 200 mg NEB RQID [facility] Last Admin: 01/23/19 07:00 Dose: 200 mg Albuterol Sulfate (Ventolin 0.083% Nebulizer Soln -) 1 amp NEB RQID [facility] Last Admin: 01/23/19 07:01 Dose: 1 amp Amino Acids (Prosource No Carb Liquid Pkt) 30 ml GT BID@0800,1730 [facility] Last Admin: 01/23/19 08:35 Dose: 30 ml Bacitracin (Bacitracin -) 1 applic TP DAILY [facility] Last Admin: 01/23/19 09:07 Dose: Not Given Clonazepam (Klonopin -) 0.5 mg GT BID PRN PRN Reason: ANXIETY Docusate Sodium (Colace Liquid -) 100 mg GT DAILY PRN PRN Reason: CONSTIPATION Dextrose/Sodium Chloride (D5-Ns -) 1,000 mls @ 42 mls/hr IV ASDIR [facility] Last Admin: 01/22/19 14:35 Dose: Not Given Piperacillin Sod/Tazobactam (Sod 4.5 gm/ Dextrose) 100 mls @ 200 mls/hr IVPB Q8H-IV [facility]; Protocol Last Admin: 01/23/19 09:06 Dose: 200 mls/hr Vancomycin HCl (Vancomycin (Pre-Docked)) 1,000 mg in 250 mls @ 166.667 mls/hr IVPB 0100,1300 [facility]; Protocol Last Admin: 01/23/19 02:00 Dose: 166.667 mls/hr Levothyroxine Sodium (Synthroid -) 88 mcg GT DAILY@0700 [facility] Last Admin: 01/23/19 06:39 Dose: 88 mcg Loratadine (Claritin -) 10 mg GT DAILY [facility] Last Admin: 01/23/19 09:06 Dose: 10 mg Multivitamins/Minerals (Certavite-Antioxidant Liquid) 15 ml GT DAILY [facility] Last Admin: 01/23/19 09:06 Dose: 15 ml Nortriptyline HCl (Pamelor -) 50 mg PO HS [facility] Last Admin: 01/22/19 22:53 Dose: 50 mg Nystatin (Mycostatin Ointment -) 1 applic TP BID [facility] Last Admin: 01/23/19 09:14 Dose: 1 applic Polysaccharide Iron Complex (Niferex-150 -) 150 mg PO DAILY [facility] Last Admin: 01/23/19 09:07 Dose: 150 mg Pregabalin (Lyrica -) 200 mg PO TID [facility] Last Admin: 01/23/19 06:39 Dose: 200 mg Sertraline HCl (Zoloft -) 100 mg GT DAILY [facility] Last Admin: 01/23/19 09:06 Dose: 100 mg Tramadol HCl (Ultram -) 50 mg PO Q8H PRN PRN Reason: PAIN LEVEL 7 - 10 Last Admin: 01/22/19 22:54 Dose: 50 mg Ursodiol (Actigal -) 300 mg PO BID [facility] Last Admin: 01/23/19 09:06 Dose: 300 mg - Objective Vital Signs: Vital Signs Temperature 98.2 F 01/23/19 09:26 Pulse Rate 64 01/23/19 09:26 Respiratory Rate 17 01/23/19 10:30 Blood Pressure 92/56 L 01/23/19 09:26 O2 Sat by Pulse Oximetry (%) 98 01/23/19 08:31 Constitutional: Yes: No Distress, Calm Eyes: Yes: Conjunctiva Clear HENT: Yes: Atraumatic Neck: Yes: Other (trach) Cardiovascular: Yes: Regular Rate and Rhythm Respiratory: Yes: Regular, Rhonchi, Other (O2 trach collar) Gastrointestinal: Yes: Normal Bowel Sounds, Soft Genitourinary: Yes: Raza Present Musculoskeletal: Yes: Muscle Weakness Extremities: Yes: WNL Edema: No Wound/Incision: Yes: Dressing Dry and Intact Neurological: Yes: Alert, Pre-Existing Deficit Psychiatric: Yes: Alert, Oriented Labs: CBC, BMP 01/23/19 07:54 01/23/19 07:54 Microbiology 01/20/19 15:25 Sputum - Endotrachea Suction/Ventilator Gram Stain - Final 01/20/19 15:25 Sputum - Endotrachea Suction/Ventilator Sputum Culture - Final Serratia Marcescens Yeast Like Organism 01/19/19 19:00 Blood - Peripheral Venous Blood Culture - Preliminary NO GROWTH OBTAINED AFTER 72 HOURS, INCUBATION TO CONTINUE FOR 2 DAYS. 01/19/19 18:55 Blood - Peripheral Venous Blood Culture - Preliminary NO GROWTH OBTAINED AFTER 72 HOURS, INCUBATION TO CONTINUE FOR 2 DAYS. 01/20/19 06:00 Urine - Urine Raza Urine Culture - Final Gram Negative Adam 01/20/19 06:00 Urine For Antigen Detection Legionella Antigen - Final 01/20/19 06:00 Urine For Antigen Detection Streptococcus pneumoniae Antigen (M - Final Problem List - Problems (1) Chronic hypercapnic respiratory failure Assessment/Plan: -Pulm on board -Bronchodilators -Mucomyst -Mechanically ventilated -ABGs -keep SpO2 >90% -CXR shows progressive right infiltrate with fluid -Aspiration precautions Code(s): J96.12 - CHRONIC RESPIRATORY FAILURE WITH HYPERCAPNIA (2) Functional quadriplegia Assessment/Plan: -PT -fall risk Code(s): R53.2 - FUNCTIONAL QUADRIPLEGIA (3) Hypotension Assessment/Plan: -Cardiology consult -monitor BP Code(s): I95.9 - HYPOTENSION, UNSPECIFIED (4) Hypothyroid Assessment/Plan: -Levothyroxine Code(s): E03.9 - HYPOTHYROIDISM, UNSPECIFIED (5) Sacral decubitus ulcer, stage IV Assessment/Plan: -Offloading -turn q2h -Plastic Surgery consult -Vascular consult Code(s): L89.154 - PRESSURE ULCER OF SACRAL REGION, STAGE 4 (6) Aspiration pneumonia Assessment/Plan: -ID on board -no leukocytosis -Vancomycin, Zosyn -BC and Legionella pending -Pulm on board -Bronchodilators -Mucomyst -Mechanically ventilated -ABGs -keep SpO2 >90% -CXR shows progressive right infiltrate with fluid -Aspiration precautions -Dietary consult Code(s): J69.0 - PNEUMONITIS DUE TO INHALATION OF FOOD AND VOMIT (7) Acute renal insufficiency Assessment/Plan: -Renal on board -BUN/Cr 27.1/0.7 -monitor renal function Code(s): N28.9 - DISORDER OF KIDNEY AND URETER, UNSPECIFIED (8) Cholelithiasis Assessment/Plan: -Actigal Code(s): K80.20 - CALCULUS OF GALLBLADDER W/O CHOLECYSTITIS W/O OBSTRUCTION (9) Anemia Assessment/Plan: -Hg 9.1 -monitor Hg daily -transfuse for Hg <7.0 -anemia profile Code(s): D64.9 - ANEMIA, UNSPECIFIED (10) Hypothermia Assessment/Plan: -resolved Code(s): T68.XXXA - HYPOTHERMIA, INITIAL ENCOUNTER
[2019-01-23] MEDS: DEXTROSE 5%-NORMAL SALINE 1,000 ML IV SCH ×2 (13:22→15:34)
--- NOTE | 2019-01-23 17:25 | PN ---
Progress Note (short form) - Note Progress Note: alert trach to vent Vital Signs Period Temp Pulse Resp BP Sys/Morillo Pulse Ox Last 24 Hr 97.5 F-98.2 F 57-91 15-18 92-136/46-69 94-99 cor-rrr lungs decreased bs at bases abd soft,nt +gt ext no edema CBC, BMP 01/23/19 07:54 01/23/19 07:54 Microbiology 01/20/19 15:25 Sputum - Endotrachea Suction/Ventilator Gram Stain - Final 01/20/19 15:25 Sputum - Endotrachea Suction/Ventilator Sputum Culture - Final Serratia Marcescens Yeast Like Organism 01/19/19 19:00 Blood - Peripheral Venous Blood Culture - Preliminary NO GROWTH OBTAINED AFTER 72 HOURS, INCUBATION TO CONTINUE FOR 2 DAYS. 01/19/19 18:55 Blood - Peripheral Venous Blood Culture - Preliminary NO GROWTH OBTAINED AFTER 72 HOURS, INCUBATION TO CONTINUE FOR 2 DAYS. 01/20/19 06:00 Urine - Urine Raza Urine Culture - Final Gram Negative Adam 01/20/19 06:00 Urine For Antigen Detection Legionella Antigen - Final 01/20/19 06:00 Urine For Antigen Detection Streptococcus pneumoniae Antigen (M - Final a/p pneumonia-?aspiration- GT was not functional for 48 hours chronic resp failure MS with functional quadraplegia history of MRSA and Pseudomonas change to cefepime with plans for switch to levaquin when ready for discharge persistent thrombocytopenia- hematology f/u
[2019-01-23] MEDS ORDERED: CEFEPIME HCL 1 GM VIAL (RESTRICTED TO ID) ONE (17:36)
[2019-01-23] MEDS: CEFEPIME 1 GM in DEXTROSE 5%-WATER 100 ML IVPB SCH (17:40)
--- NOTE | 2019-01-23 17:56 | PN ---
Progress Note, OWNER - Note Progress Note: Selected Entries 01/23/19 01/23/19 01/23/19 02:00 06:00 09:26 Lunch Temperature 97.6 F 98.1 F 98.2 F 01/23/19 01/23/19 14:00 15:00 Lunch 50% Temperature 97.5 F L Laboratory Tests 01/22/19 01/23/19 07:25 07:54 WBC 4.2 5.0 on puree/nectar. PMV orders as of 01/21. Pt seen bedside, off vent, speaking well on PMV. Tolerating puree/nectar. Reassessed swallowing with significant improvement, overtly tolerating thin liquid Consider trial of single sips of thin liquids. Monitor tolerance PO intake with PMV/cuff deflated. Will reassess for solids tomorrow. \
[2019-01-23] MEDS: NORTRIPTYLINE HCL 25 MG CAPSULE PO SCH (23:03)
[2019-01-24] MEDS ORDERED: CEFEPIME HCL 1 GM VIAL (RESTRICTED TO ID) ONE ×3 (02:09→17:14)
[2019-01-24] MEDS ORDERED: DEXTROSE 5%-WATER 100 ML IVPB ONE ×3 (02:10→17:14)
[2019-01-24] MEDS: CEFEPIME 1 GM in DEXTROSE 5%-WATER 100 ML IVPB SCH ×3 (03:00→17:20)
[2019-01-24] MEDS: LEVOTHYROXINE NA 88 MCG TABLET (FP) GT SCH (06:55)
[2019-01-24] MEDS: PREGABALIN 100 MG CAPSULE PO SCH ×3 (06:56→21:26)
[2019-01-24 08:47] LABS: HEMATOCRIT 27.3 % (32.4-45.2); HEMOGLOBIN 9.1 GM/dL (10.7-15.3); MCH 32.6 pg (25.7-33.7); MCHC 33.4 g/dl (32.0-36.0); MEAN CELL VOLUME 97.6 fl (80-96); MEAN PLT VOLUME 9.4 fl (7.5-11.1); PLATELET COUNT 74 K/MM3 (134-434); RDW 16.1 % (11.6-15.6); WHITE BLOOD COUNT 5.4 K/mm3 (4.0-10.0)
[2019-01-24 09:19] LABS: BILIRUBIN,TOTAL 0.5 mg/dL (0.2-1); BLOOD UREA NITROGEN 21.9 mg/dL (7-18); CALCIUM 8.9 mg/dL (8.5-10.1); CREATININE 0.5 mg/dL (0.55-1.3); POTASSIUM 3.6 mmol/L (3.5-5.1); TOT PROT 7.2 g/dl (6.4-8.2)
--- NOTE | 2019-01-24 09:20 | PN ---
Progress Note, Physician - Current Medication List Current Medications: Active Medications Acetaminophen (Tylenol Oral Solution -) 650 mg GT Q6H PRN PRN Reason: PAIN LEVEL 6-10 Last Admin: 01/22/19 15:54 Dose: 650 mg Acetylcysteine (Mucomyst 20 Oral / Inh Use Only*) 200 mg NEB RQID [facility] Last Admin: 01/23/19 21:18 Dose: 200 mg Albuterol Sulfate (Ventolin 0.083% Nebulizer Soln -) 1 amp NEB RQID [facility] Last Admin: 01/23/19 21:19 Dose: 1 amp Amino Acids (Prosource No Carb Liquid Pkt) 30 ml GT BID@0800,1730 [facility] Last Admin: 01/23/19 17:40 Dose: 30 ml Bacitracin (Bacitracin -) 1 applic TP DAILY [facility] Last Admin: 01/23/19 09:07 Dose: Not Given Clonazepam (Klonopin -) 0.5 mg GT BID PRN PRN Reason: ANXIETY Docusate Sodium (Colace Liquid -) 100 mg GT DAILY PRN PRN Reason: CONSTIPATION Dextrose/Sodium Chloride (D5-Ns -) 1,000 mls @ 42 mls/hr IV ASDIR [facility] Last Admin: 01/23/19 15:34 Dose: 42 mls/hr Cefepime HCl 1 gm/ Dextrose 100 mls @ 200 mls/hr IVPB Q8H-IV [facility]; Protocol Last Admin: 01/24/19 03:00 Dose: 200 mls/hr Levothyroxine Sodium (Synthroid -) 88 mcg GT DAILY@0700 [facility] Last Admin: 01/24/19 06:55 Dose: 88 mcg Loratadine (Claritin -) 10 mg GT DAILY [facility] Last Admin: 01/23/19 09:06 Dose: 10 mg Multivitamins/Minerals (Certavite-Antioxidant Liquid) 15 ml GT DAILY [facility] Last Admin: 01/23/19 09:06 Dose: 15 ml Nortriptyline HCl (Pamelor -) 50 mg PO HS [facility] Last Admin: 01/23/19 23:03 Dose: 50 mg Nystatin (Mycostatin Ointment -) 1 applic TP BID [facility] Last Admin: 01/23/19 23:04 Dose: 1 applic Polysaccharide Iron Complex (Niferex-150 -) 150 mg PO DAILY [facility] Last Admin: 01/23/19 09:07 Dose: 150 mg Pregabalin (Lyrica -) 200 mg PO TID [facility] Last Admin: 01/24/19 06:56 Dose: 200 mg Sertraline HCl (Zoloft -) 100 mg GT DAILY [facility] Last Admin: 01/23/19 09:06 Dose: 100 mg Tramadol HCl (Ultram -) 50 mg PO Q8H PRN PRN Reason: PAIN LEVEL 7 - 10 Last Admin: 01/22/19 22:54 Dose: 50 mg Ursodiol (Actigal -) 300 mg PO BID [facility] Last Admin: 01/23/19 23:03 Dose: 300 mg - Objective Vital Signs: Vital Signs Temperature 97.7 F 01/24/19 06:08 Pulse Rate 70 01/24/19 06:08 Respiratory Rate 18 01/24/19 06:08 Blood Pressure 132/70 01/24/19 06:08 O2 Sat by Pulse Oximetry (%) 98 01/23/19 21:00 Cardiovascular: Yes: S1, S2 Respiratory: Yes: Mechanically Ventilated, Rhonchi Gastrointestinal: Yes: Normal Bowel Sounds, Soft Labs: CBC, BMP 01/24/19 08:02 01/24/19 08:02 Assessment/Plan - Problems (1) Chronic hypercapnic respiratory failure Assessment/Plan: -Pulm on board -Bronchodilators -Mucomyst -Mechanically ventilated -ABGs -keep SpO2 >90% -Aspiration precautions Code(s): J96.12 - CHRONIC RESPIRATORY FAILURE WITH HYPERCAPNIA (2) Functional quadriplegia Assessment/Plan: -PT -fall risk Code(s): R53.2 - FUNCTIONAL QUADRIPLEGIA (3) Hypotension Assessment/Plan: -Cardiology consult -monitor BP Code(s): I95.9 - HYPOTENSION, UNSPECIFIED (4) Hypothyroid Assessment/Plan: -Levothyroxine Code(s): E03.9 - HYPOTHYROIDISM, UNSPECIFIED (5) Sacral decubitus ulcer, stage IV Assessment/Plan: -Offloading -turn q2h -Plastic Surgery consult -Vascular consult Code(s): L89.154 - PRESSURE ULCER OF SACRAL REGION, STAGE 4 (6) Aspiration pneumonia Assessment/Plan: -ID on board -no leukocytosis -changed to cefepime with plans for switch to levaquin when ready for discharge -BC Microbiology 01/19/19 19:00 Blood - Peripheral Venous Blood Culture - Preliminary NO GROWTH OBTAINED AFTER 96 HOURS, INCUBATION TO CONTINUE FOR 1 DAYS. 01/19/19 18:55 Blood - Peripheral Venous Blood Culture - Preliminary NO GROWTH OBTAINED AFTER 96 HOURS, INCUBATION TO CONTINUE FOR 1 DAYS. 01/20/19 15:25 Sputum - Endotrachea Suction/Ventilator Gram Stain - Final 01/20/19 15:25 Sputum - Endotrachea Suction/Ventilator Sputum Culture - Final Serratia Marcescens Yeast Like Organism 01/20/19 06:00 Urine - Urine Raza Urine Culture - Final Gram Negative Adam 01/20/19 06:00 Urine For Antigen Detection Legionella Antigen - Final 01/20/19 06:00 Urine For Antigen Detection Streptococcus pneumoniae Antigen (M - Final -Pulm on board -Bronchodilators -Mucomyst -Mechanically ventilated -ABGs -keep SpO2 >90% -Aspiration precautions -Dietary consult Code(s): J69.0 - PNEUMONITIS DUE TO INHALATION OF FOOD AND VOMIT (7) Acute renal insufficiency Assessment/Plan: -Renal on board -BUN/Cr 27.1/0.7 -monitor renal function Code(s): N28.9 - DISORDER OF KIDNEY AND URETER, UNSPECIFIED (8) Cholelithiasis Assessment/Plan: -Actigal Code(s): K80.20 - CALCULUS OF GALLBLADDER W/O CHOLECYSTITIS W/O OBSTRUCTION (9) Anemia Assessment/Plan: -Hg 9.1 -monitor Hg daily -transfuse for Hg <7.0 -anemia profile Code(s): D64.9 - ANEMIA, UNSPECIFIED (10) Hypothermia Assessment/Plan: -resolved Code(s): T68.XXXA - HYPOTHERMIA, INITIAL ENCOUNTER
[2019-01-24] MEDS: ACETYLCYSTEINE 20% 200MG/ML 4 ML VIAL *FOR ORAL / INH USE ONLY NEB SCH ×4 (09:40→20:50)
[2019-01-24] MEDS: ALBUTEROL SO4 0.083% IH SOL 2.5 MG/3 ML VIAL.NEB. NEB SCH ×4 (09:41→20:50)
[2019-01-24] MEDS: NYSTATIN 100000 UNIT/GM TOPICAL OINTMENT 15 GM TUBE TP SCH ×2 (10:25→21:26)
[2019-01-24] MEDS: IRON POLYSACCHARIDES 150 MG CAPSULE PO SCH (10:26)
[2019-01-24] MEDS: LORATADINE 10 MG TABLET GT SCH (10:26)
[2019-01-24] MEDS: SERTRALINE HCL 50 MG TABLET (FP) GT SCH (10:26)
[2019-01-24] MEDS: URSODIOL 300 MG CAPSULE PO SCH ×2 (10:26→21:26)
[2019-01-24] MEDS: AMINO ACIDS/PROTEIN HYDROLYS 30 ML LIQUID.PKT GT SCH ×2 (10:26→17:20)
[2019-01-24] MEDS: BACITRACIN 15 GM TUBE TOPICAL OINTMENT TP SCH (10:27)
--- NOTE | 2019-01-24 11:23 | PN ---
Progress Note (short form) - Note Progress Note: PULMONARY Denies shortness of breath on trach collar. No fevers. Vital Signs Period Temp Pulse Resp BP Sys/Morillo Pulse Ox Last 24 Hr 97.2 F-97.9 F 62-91 15-18 104-150/48-79 94-98 Gen: NAD on trach collar Heart: RRR Lung: decreased breath sounds at the bases Abd: softly distended, nontender Ext: no edema CBC, BMP 01/24/19 08:02 01/24/19 08:02 Active Medications Acetaminophen (Tylenol Oral Solution -) 650 mg GT Q6H PRN PRN Reason: PAIN LEVEL 6-10 Last Admin: 01/22/19 15:54 Dose: 650 mg Acetylcysteine (Mucomyst 20 Oral / Inh Use Only*) 200 mg NEB RQID [facility] Last Admin: 01/24/19 09:40 Dose: 200 mg Albuterol Sulfate (Ventolin 0.083% Nebulizer Soln -) 1 amp NEB RQID [facility] Last Admin: 01/24/19 09:41 Dose: 1 amp Amino Acids (Prosource No Carb Liquid Pkt) 30 ml GT BID@0800,1730 [facility] Last Admin: 01/24/19 10:26 Dose: 30 ml Bacitracin (Bacitracin -) 1 applic TP DAILY [facility] Last Admin: 01/24/19 10:27 Dose: Not Given Clonazepam (Klonopin -) 0.5 mg GT BID PRN PRN Reason: ANXIETY Docusate Sodium (Colace Liquid -) 100 mg GT DAILY PRN PRN Reason: CONSTIPATION Cefepime HCl 1 gm/ Dextrose 100 mls @ 200 mls/hr IVPB Q8H-IV [facility]; Protocol Last Admin: 01/24/19 10:27 Dose: 200 mls/hr Levothyroxine Sodium (Synthroid -) 88 mcg GT DAILY@0700 [facility] Last Admin: 01/24/19 06:55 Dose: 88 mcg Loratadine (Claritin -) 10 mg GT DAILY [facility] Last Admin: 01/24/19 10:26 Dose: 10 mg Multivitamins/Minerals (Certavite-Antioxidant Liquid) 15 ml GT DAILY [facility] Last Admin: 01/23/19 09:06 Dose: 15 ml Nortriptyline HCl (Pamelor -) 50 mg PO HS [facility] Last Admin: 01/23/19 23:03 Dose: 50 mg Nystatin (Mycostatin Ointment -) 1 applic TP BID [facility] Last Admin: 01/24/19 10:25 Dose: 1 applic Polysaccharide Iron Complex (Niferex-150 -) 150 mg PO DAILY [facility] Last Admin: 01/24/19 10:26 Dose: 150 mg Pregabalin (Lyrica -) 200 mg PO TID [facility] Last Admin: 01/24/19 06:56 Dose: 200 mg Sertraline HCl (Zoloft -) 100 mg GT DAILY [facility] Last Admin: 01/24/19 10:26 Dose: 100 mg Tramadol HCl (Ultram -) 50 mg PO Q8H PRN PRN Reason: PAIN LEVEL 7 - 10 Last Admin: 01/22/19 22:54 Dose: 50 mg Ursodiol (Actigal -) 300 mg PO BID [facility] Last Admin: 01/24/19 10:26 Dose: 300 mg A/P Acute on Chronic Hypoxic and Hypercapneic Respiratory Failure Pneumonia likely Aspiration Advanced Multiple Sclerosis Functional Quadriplegia HTN Hyperlipidemia Anemia/Thrombocytopenia Hypothyroidism - continue antibiotics per ID - O2 to keep SpO2 >90% - inhaled bronchodilators - aspiration precautions - mechanical ventilation at night, trach collar during day - DVT prophylaxis
[2019-01-24] MEDS: MULTIVIT-MINERALS ORAL LIQUID GT SCH (11:36)
--- NOTE | 2019-01-24 12:29 | PN ---
Progress Note (short form) - Note Progress Note: Renal follow up for electrolyte disturbances Seen and examined at the bedside awake and alert using trach collar and talking offers no acute complaints no sob, cp, abd pain, fever or chills taking in oral diet Vital Signs Temperature 97.9 F 01/24/19 10:00 Pulse Rate 90 01/24/19 10:00 Respiratory Rate 15 01/24/19 10:00 Blood Pressure 150/79 01/24/19 10:00 O2 Sat by Pulse Oximetry (%) 98 01/23/19 21:00 Intake & Output 01/21/19 01/22/19 01/23/19 01/24/19 23:59 23:59 23:59 23:59 Intake Total 1320 1454 2198 336 Output Total 5877 967 1782 200 Balance -580 554 -202 136 Weight 72.575 kg NAD RRR, no M/R Dec BS, no rales soft NT/ND no LE edema, clubbing or cyanosis CBC, BMP 01/24/19 08:02 01/24/19 08:02 Current Medications Acetaminophen (Tylenol Oral Solution -) 650 mg GT Q6H PRN PRN Reason: PAIN LEVEL 6-10 Last Admin: 01/22/19 15:54 Dose: 650 mg Acetylcysteine (Mucomyst 20 Oral / Inh Use Only*) 200 mg NEB RQID [facility] Last Admin: 01/24/19 09:40 Dose: 200 mg Albuterol Sulfate (Ventolin 0.083% Nebulizer Soln -) 1 amp NEB RQID [facility] Last Admin: 01/24/19 09:41 Dose: 1 amp Amino Acids (Prosource No Carb Liquid Pkt) 30 ml GT BID@0800,1730 [facility] Last Admin: 01/24/19 10:26 Dose: 30 ml Bacitracin (Bacitracin -) 1 applic TP DAILY [facility] Last Admin: 01/24/19 10:27 Dose: Not Given Clonazepam (Klonopin -) 0.5 mg GT BID PRN PRN Reason: ANXIETY Docusate Sodium (Colace Liquid -) 100 mg GT DAILY PRN PRN Reason: CONSTIPATION Cefepime HCl 1 gm/ Dextrose 100 mls @ 200 mls/hr IVPB Q8H-IV [facility]; Protocol Last Admin: 01/24/19 10:27 Dose: 200 mls/hr Levothyroxine Sodium (Synthroid -) 88 mcg GT DAILY@0700 [facility] Last Admin: 01/24/19 06:55 Dose: 88 mcg Loratadine (Claritin -) 10 mg GT DAILY [facility] Last Admin: 01/24/19 10:26 Dose: 10 mg Multivitamins/Minerals (Certavite-Antioxidant Liquid) 15 ml GT DAILY [facility] Last Admin: 01/24/19 11:36 Dose: 15 ml Nortriptyline HCl (Pamelor -) 50 mg PO HS [facility] Last Admin: 01/23/19 23:03 Dose: 50 mg Nystatin (Mycostatin Ointment -) 1 applic TP BID [facility] Last Admin: 01/24/19 10:25 Dose: 1 applic Polysaccharide Iron Complex (Niferex-150 -) 150 mg PO DAILY [facility] Last Admin: 01/24/19 10:26 Dose: 150 mg Pregabalin (Lyrica -) 200 mg PO TID [facility] Last Admin: 01/24/19 06:56 Dose: 200 mg Sertraline HCl (Zoloft -) 100 mg GT DAILY [facility] Last Admin: 01/24/19 10:26 Dose: 100 mg Tramadol HCl (Ultram -) 50 mg PO Q8H PRN PRN Reason: PAIN LEVEL 7 - 10 Last Admin: 01/22/19 22:54 Dose: 50 mg Ursodiol (Actigal -) 300 mg PO BID [facility] Last Admin: 01/24/19 10:26 Dose: 300 mg 53 year old woman with history of multiple sclerosis, respiratory failure with chronic trach, hypertension, hyperpiesia, SIADH who presented from home with dislodged PEG tube and found to have possible PNA and hyperkalemia with K of 5.6. 1. Hyperkalemia 2. Hx of SIADH 3. PNA 4. Multiple sclerosis 5. Anemia 6. Thrombocytoepenia Electrolytes are WNL Continue present oral solute and water intake Continue antibiotics as per ID platelet counts improved but still remain low Heme following Thank you Will follow Tyshawn Doe DO
[2019-01-24] MEDS: traMADol HCL 50 MG TABLET PO PRN (17:34)
[2019-01-24] MEDS ORDERED: PT OWN MED DRAWER 7, Y5N ONE (21:23)
[2019-01-24] MEDS: NORTRIPTYLINE HCL 25 MG CAPSULE PO SCH (21:26)
[2019-01-25] MEDS ORDERED: CEFEPIME HCL 1 GM VIAL (RESTRICTED TO ID) ONE ×2 (00:44→09:51)
[2019-01-25] MEDS ORDERED: DEXTROSE 5%-WATER 100 ML IVPB ONE ×2 (00:45→09:51)
[2019-01-25] MEDS: CEFEPIME 1 GM in DEXTROSE 5%-WATER 100 ML IVPB SCH ×2 (01:29→10:18)
[2019-01-25] MEDS: LEVOTHYROXINE NA 88 MCG TABLET (FP) GT SCH (06:34)
[2019-01-25] MEDS: PREGABALIN 100 MG CAPSULE PO SCH (06:34)
[2019-01-25 06:35] VITALS: TEMP 98.7
--- NOTE | 2019-01-25 08:47 | DS ---
Physical Examination Vital Signs: Vital Signs Temperature 98.7 F 01/25/19 06:00 Pulse Rate 67 01/25/19 06:00 Respiratory Rate 18 01/25/19 06:00 Blood Pressure 130/58 L 01/25/19 06:00 O2 Sat by Pulse Oximetry (%) 100 01/24/19 21:00 Cardiovascular: Yes: S1, S2 Respiratory: Yes: CTA Bilaterally, Mechanically Ventilated Gastrointestinal: Yes: Normal Bowel Sounds, Soft Labs: CBC, BMP 01/24/19 08:02 01/24/19 08:02 Discharge Summary Problems reviewed: Yes Reason For Visit: RESPIRATORY ACIDOSIS/PNEUMONIA Current Active Problems Chronic hypercapnic respiratory failure (Acute) Dislodged gastrostomy tube (Acute) Hypothermia (Acute) Ventilator associated pneumonia (Acute) Hospital Course: - Problems (1) Chronic hypercapnic respiratory failure Assessment/Plan: -Pulm on board -Bronchodilators -Mucomyst -Mechanically ventilated -ABGs -keep SpO2 >90% -Aspiration precautions Code(s): J96.12 - CHRONIC RESPIRATORY FAILURE WITH HYPERCAPNIA (2) Functional quadriplegia Assessment/Plan: -PT-ROM -fall risk Code(s): R53.2 - FUNCTIONAL QUADRIPLEGIA (3) Hypotension Assessment/Plan: -Cardiology consult -monitor BP Code(s): I95.9 - HYPOTENSION, UNSPECIFIED (4) Hypothyroid Assessment/Plan: -Levothyroxine Code(s): E03.9 - HYPOTHYROIDISM, UNSPECIFIED (5) Sacral decubitus ulcer, stage IV Assessment/Plan: -Offloading -turn q2h -Plastic Surgery consult -Vascular consult Code(s): L89.154 - PRESSURE ULCER OF SACRAL REGION, STAGE 4 (6) Aspiration pneumonia Assessment/Plan: -ID on board -no leukocytosis -changed to cefepime with plans for switch to levaquin when ready for discharge -BC Microbiology 01/19/19 19:00 Blood - Peripheral Venous Blood Culture - Preliminary NO GROWTH OBTAINED AFTER 96 HOURS, INCUBATION TO CONTINUE FOR 1 DAYS. 01/19/19 18:55 Blood - Peripheral Venous Blood Culture - Preliminary NO GROWTH OBTAINED AFTER 96 HOURS, INCUBATION TO CONTINUE FOR 1 DAYS. 01/20/19 15:25 Sputum - Endotrachea Suction/Ventilator Gram Stain - Final 01/20/19 15:25 Sputum - Endotrachea Suction/Ventilator Sputum Culture - Final Serratia Marcescens Yeast Like Organism 01/20/19 06:00 Urine - Urine Raza Urine Culture - Final Gram Negative Adam 01/20/19 06:00 Urine For Antigen Detection Legionella Antigen - Final 01/20/19 06:00 Urine For Antigen Detection Streptococcus pneumoniae Antigen (M - Final -Pulm on board -Bronchodilators -Mucomyst -Mechanically ventilated -ABGs -keep SpO2 >90% -Aspiration precautions -Dietary consult Code(s): J69.0 - PNEUMONITIS DUE TO INHALATION OF FOOD AND VOMIT (7) Acute renal insufficiency Assessment/Plan: -Renal on board -BUN/Cr 27.1/0.7 -monitor renal function Code(s): N28.9 - DISORDER OF KIDNEY AND URETER, UNSPECIFIED (8) Cholelithiasis Assessment/Plan: -Actigal Code(s): K80.20 - CALCULUS OF GALLBLADDER W/O CHOLECYSTITIS W/O OBSTRUCTION (9) Anemia Assessment/Plan: -Hg 9.1 -monitor Hg daily -transfuse for Hg <7.0 -anemia profile Code(s): D64.9 - ANEMIA, UNSPECIFIED (10) Hypothermia Assessment/Plan: -resolved Code(s): T68.XXXA - HYPOTHERMIA, INITIAL ENCOUNTER Condition: Improved - Instructions Referrals: Anne Lopez MD [Primary Care Provider] - Disposition: [facility]/HOME HEALTH CARE - Home Medications Comprehensive Discharge Medication List: Ambulatory Orders Clonazepam [Klonopin] 0.5 mg PO BID PRN 10/12/18 Loratadine 10 mg PO DAILY 10/12/18 Pregabalin [Lyrica -] 200 mg PEG TID 10/12/18 Sertraline HCl [Zoloft] 100 mg PO DAILY 10/12/18 Ursodiol [Actigal -] 300 mg PO BID 10/12/18 Amino Acids/Protein Hydrolys [Prosource No Carb Liquid Pkt] 30 ml PO BID@0800, 1730 packet 10/25/18 Docusate Liquid [Colace Liquid -] 100 mg PO DAILY PRN ud 10/25/18 Nystatin Ointment [Mycostatin Ointment -] 1 applic TP BID #60 gr 10/25/18 Amlodipine Besylate [Norvasc -] 5 mg PEG DAILY 01/21/19 Bacitracin - 1 applic TD DAILY 01/21/19 Levothyroxine [Synthroid -] PEG DAILY 01/21/19 Acetaminophen Oral Solution [Tylenol Oral Solution -] 650 mg GT Q6H PRN soln.oral 01/25/19 Iron Polysaccharides [Niferex-150 -] 150 mg PO DAILY #30 capsule 01/25/19 Loratadine [Claritin -] 10 mg GT DAILY tablet 01/25/19 Nortriptyline HCl [Pamelor -] 50 mg PO HS capsule 01/25/19 levoFLOXacin [Levaquin -] 500 mg PO DAILY #7 tablet 01/25/19
[2019-01-25] MEDS: ALBUTEROL SO4 0.083% IH SOL 2.5 MG/3 ML VIAL.NEB. NEB SCH (09:00)
[2019-01-25] MEDS: ACETYLCYSTEINE 20% 200MG/ML 4 ML VIAL *FOR ORAL / INH USE ONLY NEB SCH (09:00)
[2019-01-25 09:38] LABS: BLOOD UREA NITROGEN 22.2 mg/dL (7-18); CALCIUM 8.9 mg/dL (8.5-10.1); CREATININE 0.5 mg/dL (0.55-1.3); POTASSIUM 3.4 mmol/L (3.5-5.1)
[2019-01-25] MEDS ORDERED: PT OWN MED DRAWER 7, Y5N ONE (09:51)
[2019-01-25] MEDS: SERTRALINE HCL 50 MG TABLET (FP) GT SCH (09:57)
[2019-01-25] MEDS: AMINO ACIDS/PROTEIN HYDROLYS 30 ML LIQUID.PKT GT SCH (09:57)
[2019-01-25] MEDS: URSODIOL 300 MG CAPSULE PO SCH (09:57)
[2019-01-25] MEDS: IRON POLYSACCHARIDES 150 MG CAPSULE PO SCH (09:57)
[2019-01-25] MEDS: LORATADINE 10 MG TABLET GT SCH (09:57)
[2019-01-25] MEDS ORDERED: FLU VACCINE QUAD 60 MCG/0.5 ML (MDV 19-20) IM ONE (10:00)
[2019-01-25] MEDS: MULTIVIT-MINERALS ORAL LIQUID GT SCH (10:19)
--- NOTE | 2019-01-25 11:12 | PN ---
Progress Note (short form) - Note Progress Note: Patient known for Multiple Grade IV decubitii Admitted for Pneumonia, Respiratory distress All decubitii Grade IV Patient has been waiting for VAC Therapy to be resumed Wounds are clean , discussed with [facility] for VAC Therapy to assist reduction and wound care Will order VAC Therapy to start .
[2019-01-25 12:51] VITALS: BP 152/64; PULSE 68
== END 2019-01-25 11:54 | disposition home health service (06) | DRG 207 ==
LOC: JER 10:11 → JERBED 18:08 → J5S 01-20 10:03
PROVIDERS: ADMIT Internal Medicine; ATTEND Family Medicine
PROC: 5A1955Z Respiratory Ventilation, Greater than 96 Consecutive Hours (ICD-10-PCS; principal; 2019-01-19)
DX: J15.6 Pneumonia due to other Gram-negative bacteria (principal); L89.893 Pressure ulcer of other site, stage 3; J96.21 Acute and chronic respiratory failure with hypoxia; R53.2 Functional quadriplegia; L89.154 Pressure ulcer of sacral region, stage 4; J96.22 Acute and chronic respiratory failure with hypercapnia; Z43.1 Encounter for attention to gastrostomy; E87.1 Hypo-osmolality and hyponatremia; Z99.11 Dependence on respirator [ventilator] status; J95.851 Ventilator associated pneumonia; D64.9 Anemia, unspecified; N28.9 Disorder of kidney and ureter, unspecified; Z93.0 Tracheostomy status; Z93.1 Gastrostomy status; G35 Multiple sclerosis; G50.0 Trigeminal neuralgia; I10 Essential (primary) hypertension; E87.5 Hyperkalemia; D69.6 Thrombocytopenia, unspecified; I95.9 Hypotension, unspecified; E03.9 Hypothyroidism, unspecified; K80.20 Calculus of gallbladder without cholecystitis without obstruction; J69.0 Pneumonitis due to inhalation of food and vomit; T68.XXXA Hypothermia, initial encounter
CPT/HCPCS: 36415; 36600; 71045-TC-FY; 74018-TC-FY; 80048; 80053; 81003; 82248; 82375; 82607; 82728; 82747; 82803; 83050; 83540; 83550; 83605; 83615; 83735; 84100; 84439; 84443; 85014; 85025; 85027; 87040; 87070; 87077; 87086; 87186; 87205; 87899; 93005; 93010; 94002; 94640; 99285-25; G0008; J7030; Q2036

== ENCOUNTER 2019-05-01 10:14 | Emergency (ER) | payer OTHER ==
[2019-05-01 10:36] VITALS: BMI 27.4
--- NOTE | 2019-05-01 11:46 | PDOC ---
History of Present Illness - General Chief Complaint: G Tube Problem Stated Complaint: G-TUBE ISSUE Time Seen by Provider: 05/01/19 11:05 History Source: Patient, Care Provider, Family Exam Limitations: No Limitations - History of Present Illness Initial Comments: 05/01/19 11:41 54YOF with h/o MS (s/p trach, vent dependent), Functional Quadriplegia, HTN, and HLD, who p/w 18 Fr sized G-tube dislodged since yesterday evening. She notes it got caught on something and was pulled out, but she has minimal pain and denies any bleeding or other symptoms regarding this complaint. She still drinks small amounts PO and nothing has changed in this ability since the G tube was pulled out. As a secondary complaint, she notes 2 days of right knee swelling which has not happened to her before, and which she notes has worsened since yesterday when she was going through some light stretching/ROM exercised with her aid in attempt to help the swelling and pain. She denies skin changes or warmth, recent lesions, or f/c/n/v/d/c. Past History - Past Medical History Allergies/Adverse Reactions: Allergies Allergy/AdvReac Type Severity Reaction Status Date / Time chloral hydrate Allergy Intermediate Rash Verified 10/12/18 12:02 [Chloral Hydrate] azathioprine [From Imuran] Allergy Rash Verified 10/12/18 12:02 azathioprine sodium Allergy Rash Verified 10/12/18 12:02 [From Imuran] adhesive tape AdvReac Severe sensitivity Verified 10/12/18 12:02 to glue adhesive AdvReac Unknown Verified 10/12/18 12:02 Home Medications: Ambulatory Orders Clonazepam [Klonopin] 0.5 mg PO BID PRN 10/12/18 Loratadine 10 mg PO DAILY 10/12/18 Pregabalin [Lyrica -] 200 mg PEG TID 10/12/18 Sertraline HCl [Zoloft] 100 mg PO DAILY 10/12/18 Ursodiol [Actigal -] 300 mg PO BID 10/12/18 Amino Acids/Protein Hydrolys [Prosource No Carb Liquid Pkt] 30 ml PO BID@0800, 1730 packet 10/25/18 Docusate Liquid [Colace Liquid -] 100 mg PO DAILY PRN ud 10/25/18 Nystatin Ointment [Mycostatin Ointment -] 1 applic TP BID #60 gr 10/25/18 Amlodipine Besylate [Norvasc -] 5 mg PEG DAILY 01/21/19 Bacitracin - 1 applic TD DAILY 01/21/19 Levothyroxine [Synthroid -] PEG DAILY 01/21/19 Acetaminophen Oral Solution [Tylenol Oral Solution -] 650 mg GT Q6H PRN soln.oral 01/25/19 Iron Polysaccharides [Niferex-150 -] 150 mg PO DAILY #30 capsule 01/25/19 Loratadine [Claritin -] 10 mg GT DAILY tablet 01/25/19 Nortriptyline HCl [Pamelor -] 50 mg PO HS capsule 01/25/19 levoFLOXacin [Levaquin -] 500 mg PO DAILY #7 tablet 01/25/19 Anemia: Yes Asthma: No Cancer: No Cardiac Disorders: No CVA: No COPD: No CHF: No DVT: No Dementia: No (M.S,TRIG.NEUROLAGIA) Diabetes: No GI Disorders: Yes (peg replaced 01/19 in er) Disorders: Yes (recurrent UTI, chronic perera catheter last changed 01/17) HTN: Yes Hypercholesterolemia: No Liver Disease: No Seizures: Yes Thyroid Disease: Yes (Hypothyroidism) - Surgical History Abdominal Surgery: Yes (BACLOFEN PUMP) Appendectomy: Yes (GASTRIC FEEDING TUBE) Cardiac Surgery: No Cholecystectomy: No GI Surgery: (BACLOFEN IMPLANT) Lung Surgery: Yes (TRACHEOSTOMY Portex #6) Neurologic Surgery: No Orthopedic Surgery: No - Immunization History Immunization Up to Date: Yes - Psycho Social/Smoking Cessation Hx Smoking Status: No Smoking History: Never smoked Have you smoked in the past 12 months: No Number of Cigarettes Smoked Daily: 0 Cigars Per Day: 0 Information on smoking cessation initiated: No Hx Alcohol Use: No Drug/Substance Use Hx: No Substance Use Type: None Hx Substance Use Treatment: No Review of Systems - Review of Systems Able to Perform ROS?: Yes Comments:: 05/01/19 11:46 GEN: no fever, chills, malaise, or generalized weakness HEENT: no ear pain, congestion, sore throat, vision change, or eye pain CV: no chest pain, palpitations, lightheadedness, syncope, or edema RESP: no SOB, wheezing, or cough GI: no abdominal pain, nausea, vomiting, diarrhea, constipation, or rectal bleed : no dysuria, hematuria, or discharge MSK: right knee pain/swelling but otherwise no muscle weakness or pain, no other joint swelling or pain NEURO: no headache, vertigo, numbness, tingling, or focal weakness PSYCH: no SI, HI, or behavior change SKIN: no jaundice, rash, lesions, or unexplained bruises ROS otherwise negative except as noted in HPI *Physical Exam - Vital Signs Last Vital Signs Temp Pulse Resp BP Pulse Ox 97.6 F 93 H 16 125/55 L 95 05/01/19 10:32 05/01/19 10:32 05/01/19 10:32 05/01/19 10:32 05/01/19 10:32 - Physical Exam 05/01/19 11:46 GENERAL: very pleasant soft-spoken adult female, accompanied by aid and mother, quadriplegic, well-appearing, A/Ox4, no distress, answers questions appropriately HEENT: PERRLA, EOMI, moist mucous membranes NECK/BACK: no midline ttp, no spinal stepoff or deformity, no hematoma, full ROM , neck supple CARDIOVASCULAR: regular rate/rhythm, no MGR, strong peripheral pulses, capillary refill <2 seconds, extremities wwp, no edema LUNGS/RESPIRATORY: no respiratory distress, CTAB GI/ABDOMEN: LUQ with stoma from G tube, G tube has been completely removed, minimal outward skin irritation, pink and healthy appearing gastric mucosa, no active bleeding, symmetric [id number], normoactive BS, soft, no ttp, no midline pulsatile masses : no CVA tenderness EXTREMITIES: right knee moderate-large effusion without overlying skin color change, rash, lesions, or warmth; no muscle atrophy, no acute deformity SKIN: warm and dry, no pallor, no jaundice, no rash, no bruising, no skin breakdown, no cuts, no lesions NEUROLOGICAL: GCS 15, CN II-XII grossly intact, 5/5 strength proximally and distally, no facial droop ED Treatment Course - RADIOLOGY Radiology Studies Ordered: Category Date Time Status ABDOMEN-KUB FLAT PLATE [RAD] Stat Radiology 05/01/19 11:22 Ordered KNEE 3 POS-RIGHT [RAD] Stat Radiology 05/01/19 11:38 Ordered Medical Decision Making - Medical Decision Making 05/01/19 11:51 Adult patient with G-tube place in 01/2019 p/w G tube dislodged, also rt knee pain/swelling. Initial Vital Signs Temp Pulse Resp BP Pulse Ox 97.6 F 93 H 16 125/55 L 95 05/01/19 10:32 05/01/19 10:32 05/01/19 10:32 05/01/19 10:32 05/01/19 10:32 G tube replaced with same size W/U ordered: X-rays of abdomen, knee TX ordered: None at this time Abdomen XR for G-tube placement: contrast within the stomach without extravasation. DISCHARGE This patient has gotten significant relief of symptoms while in the ED. On last reassessment, vitals are wnl, pain is reasonably controlled, and exam is benign. Workup is not concerning for emergency-level pathology at this time. This patient is appropriate for discharge with close outpatient follow up. They are comfortable with this plan and will follow up with PCP in 1-3 days. Specific return precautions are discussed and they will come back to the ER if necessary. Discharge - Discharge Information Problems reviewed: Yes Clinical Impression/Diagnosis: Gastrostomy tube dysfunction, Effusion, right knee Condition: Stable Disposition: HOME - Admission No - Follow up/Referral Referrals: Anne Lopez MD [Primary Care Provider] - Rom Javier MD [Staff Physician] - - Patient Discharge Instructions Additional Instructions: You were seen in the ER for a g-tube dislodgement, and we replaced it successfully. We also examined and x-rayed your right knee and saw that there is a chronic long-standing fracture and swelling. After our assessment, we do not believe you are having a medical emergency at this time, and we believe you are safe to go home. Please follow up with your primary care provider in 1-3 days, and also follow up with Dr. Javier. Call their clinic, tell them you were seen in the ER, and tell them you need a follow-up. If you have any new or worsening symptoms, especially skin redness and warmth to the knee or to the G- tube site, or other signs of infection like fever, please come back to the ER at any time (24 hours a day). If you are having severe or life threatening symptoms, or symptoms that make it unsafe to drive or have someone drive you, please call 911. - Post Discharge Activity
[2019-05-01 12:26] VITALS: BP 130/63; PULSE 75; TEMP 98
--- NOTE | 2019-05-01 12:43 | PDOC ---
Documentation entered by Gildardo Pepper SCRIBE, acting as scribe for Adrian Ortega MD. Adrian Ortega MD: This documentation has been prepared by the Shantelle de jesus Xhesika, SCRIBE, under my direction and personally reviewed by me in its entirety. I confirm that the documentation accurately reflects all work, treatment, procedures, and medical decision making performed by me. Attending Attestation - Resident Resident Name: WadeLa - ED Attending Attestation I have performed the following: I have examined & evaluated the patient, The case was reviewed & discussed with the resident, I agree w/resident's findings & plan, Exceptions are as noted - HPI HPI: 05/01/19 11:21 The patient is a 54 year old female, with a significant past medical history of MS (s/p trach on vent), functional quadriplegia, HTN, HLD, who presents to the emergency department with a dislodged 18-Mexican G-tube since last night. Per family the patient had her G-tube placed in January 2019. Pt is currently asymptomatic in the ED. She denies recent F/C, chest pain or shortness of breath, denies abd pain, N/V/D , focal weakness or numbness. Allergies: chloral hydrate, azathioprine, azathioprine sodium, adhesive Primary Care Physician: Dr. Anne Lopez Neurologist: Dr. Conroy - Physicial Exam PE: 05/01/19 11:23 Vitals: Triage Vital signs reviewed General Appearance: no acute distress, well nourished Neck: Supple;No Nuchal rigidity Chest Wall: Nontender Cardiac: Regular rate and rhythm, no murmurs, no rubs, no gallops, Lungs: Clear to auscultation bilateral, good air movement bilaterally, Abdomen: + irritated tissue at site of G-tube, no evidence of infection. - Medical Decision Making 05/01/19 12:43 54 years old with advanced MS presents with G-tube which fell out Replaced in ED confirmed by x-ray also with knee effusion No evidence of infection patient will follow-up with orthopedist this week Findings, need for follow-up and strict return instructions discussed with patient.
== END 2019-05-01 12:36 | disposition home or self-care (01) ==
LOC: JER 10:14
PROC: 0DHA7UZ Insertion of Feeding Device into Jejunum, Via Natural or Artificial Opening (ICD-10-PCS; principal; 2019-05-01)
DX: Z43.1 Encounter for attention to gastrostomy (principal); M25.461 Effusion, right knee; I10 Essential (primary) hypertension; E78.5 Hyperlipidemia, unspecified; G40.909 Epilepsy, unspecified, not intractable, without status epilepticus; G35 Multiple sclerosis; R53.2 Functional quadriplegia; Z93.0 Tracheostomy status; Z99.11 Dependence on respirator [ventilator] status; E03.9 Hypothyroidism, unspecified; G50.0 Trigeminal neuralgia; Z87.440 Personal history of urinary (tract) infections; D64.9 Anemia, unspecified; Z96.0 Presence of urogenital implants; Z88.8 Allergy status to other drugs, medicaments and biological substances; Z91.048 Other nonmedicinal substance allergy status
CPT/HCPCS: 43762; 73562-TC-RT-FY; 74018-TC-FY; 99283-25

== ENCOUNTER 2020-05-29 15:23 | Emergency (ER) | payer OTHER ==
[2020-05-29 16:08] VITALS: BP 112/75; PULSE 57; BMI 23.7
== END 2020-05-29 17:49 | disposition home or self-care (01) ==
LOC: JER 15:23
PROC: 3E0234Z Introduction of Serum, Toxoid and Vaccine into Muscle, Percutaneous Approach (ICD-10-PCS; principal; 2020-05-29)
DX: K94.23 Gastrostomy malfunction (principal)
CPT/HCPCS: 74018-TC-FY; 99284-25

== ENCOUNTER 2022-10-26 18:46 | Inpatient (IN) | payer OTHER ==
[2022-10-26] MEDS ORDERED: VANCOMYCIN 1,000 MG in DEXTROSE 5%-WATER - 250 ML IVPB ONE (21:01)
[2022-10-26] MEDS ORDERED: ACETAMINOPHEN 1000 MG/100 ML BAG IVPB ONE (21:01)
[2022-10-26] MEDS ORDERED: PIPERACILLIN/TAZOB 4.5 GM 4.5 GM in DEXTROSE 5%-WATER 100 ML IVPB ONE (21:01)
[2022-10-26] MEDS ORDERED: ACETAMINOPHEN INJECTION 100 ML IVPB ONE (22:04)
[2022-10-26 22:26] LABS: BASO % 0.6 % (0-2.0); EOS % 5.3 % (0-4.5); HEMATOCRIT 27.7 % (32.4-45.2); HEMOGLOBIN 8.6 GM/dL (10.7-15.3); LYMPH % 11.7 % (8-40); MCH 23.3 pg (25.7-33.7); MEAN CELL VOLUME 75.1 fl (80-96); MONO % 6.1 % (3.8-10.2); NEUT % 76.3 % (42.8-82.8); PLATELET COUNT 491 10^3/uL (134-434); RBC 3.69 M/mm3 (3.60-5.2); RDW 17.5 % (11.6-15.6); WHITE BLOOD COUNT 10.1 K/mm3 (4.0-10.0)
[2022-10-26 22:29] LABS: INR 1.21 (0.83-1.09)
[2022-10-26 22:32] LABS: ACTIVATED PTT 36.4 SECONDS (25.2-36.5)
[2022-10-26 23:09] LABS: POTASSIUM 4.1 mmol/L (3.5-5.1)
[2022-10-26 23:10] LABS: CALCIUM 8.3 mg/dL (8.5-10.1)
[2022-10-26 23:11] LABS: ALBUMIN 1.8 g/dl (3.4-5.0); MAGNESIUM 1.9 mg/dL (1.8-2.4)
[2022-10-26 23:14] LABS: CREATININE 0.4 mg/dL (0.55-1.3)
[2022-10-26 23:16] LABS: BILIRUBIN,TOTAL 0.2 mg/dL (0.2-1); TOT PROT 7.3 g/dl (6.4-8.2)
[2022-10-26] MEDS ORDERED: ACETAMINOPHEN 1000 MG/100 ML BAG IVPB PRN (23:44)
[2022-10-27] MEDS: PREGABALIN 100 MG CAPSULE NR SCH ×3 (06:21→22:02)
[2022-10-27] MEDS: BACLOFEN 10 MG TABLET (FP) PEG SCH ×3 (06:22→22:03)
[2022-10-27] MEDS ORDERED: LEVOTHYROXINE NA 88 MCG TABLET (FP) PEG SCH (07:00)
[2022-10-27] MEDS ORDERED: FAMOTIDINE 20 MG/2.5 ML ORAL LIQUID PEG SCH (10:00)
[2022-10-27] MEDS ORDERED: OXcarbazepine 150 MG TABLET (UD) PO SCH (10:00)
[2022-10-27] MEDS ORDERED: SERTRALINE HCL 50 MG TABLET (FP) PEG SCH (10:00)
[2022-10-27] MEDS ORDERED: amLODIPine BESYLATE 5 MG TABLET (FP) PEG SCH (10:00)
[2022-10-27] MEDS ORDERED: D5-1/2NS+20 MEQ KCL - 20 MEQ/1,000 ML INFUS.BAG IV SCH (11:00)
[2022-10-27 11:37] LABS: HEMATOCRIT 27.4 % (32.4-45.2); HEMOGLOBIN 8.7 GM/dL (10.7-15.3); MCH 23.7 pg (25.7-33.7); MCHC 31.6 g/dl (32.0-36.0); MEAN PLT VOLUME 7.9 fl (7.5-11.1); PLATELET COUNT 474 10^3/uL (134-434); RBC 3.65 M/mm3 (3.60-5.2); RDW 17.7 % (11.6-15.6); WHITE BLOOD COUNT 7.9 K/mm3 (4.0-10.0)
[2022-10-27 11:38] LABS: BASO % 0.2 % (0-2.0); EOS % 7.7 % (0-4.5); MONO % 8.1 % (3.8-10.2)
[2022-10-27] MEDS: ALBUTEROL SO4 2.5/IPRATROPIUM 0.5 INH SOL 3 ML VIAL.NEB. NEB SCH ×3 (11:41→20:35)
[2022-10-27 12:31] LABS: BLOOD UREA NITROGEN 8.2 mg/dL (7-18); CALCIUM 8.5 mg/dL (8.5-10.1); CREATININE 0.3 mg/dL (0.55-1.3); POTASSIUM 4.4 mmol/L (3.5-5.1)
[2022-10-27 13:08] LABS: BASO % 0.3 % (0-2.0); HEMATOCRIT 28.5 % (32.4-45.2); HEMOGLOBIN 8.8 GM/dL (10.7-15.3); LYMPH % 11.7 % (8-40); MCH 23.1 pg (25.7-33.7); MCHC 30.8 g/dl (32.0-36.0); MEAN CELL VOLUME 75.2 fl (80-96); MEAN PLT VOLUME 7.7 fl (7.5-11.1); MONO % 5.3 % (3.8-10.2); NEUT % 76.7 % (42.8-82.8); PLATELET COUNT 571 10^3/uL (134-434); RBC 3.79 M/mm3 (3.60-5.2); RDW 17.2 % (11.6-15.6); WHITE BLOOD COUNT 11.8 K/mm3 (4.0-10.0)
[2022-10-27 13:33] LABS: POTASSIUM 4.2 mmol/L (3.5-5.1)
[2022-10-27 13:35] LABS: CALCIUM 8.3 mg/dL (8.5-10.1)
[2022-10-27 13:36] LABS: ALBUMIN 1.8 g/dl (3.4-5.0)
[2022-10-27 13:39] LABS: CREATININE 0.3 mg/dL (0.55-1.3)
[2022-10-27 13:40] LABS: BILIRUBIN,TOTAL 0.1 mg/dL (0.2-1); TOT PROT 7.2 g/dl (6.4-8.2)
[2022-10-27 14:10] VITALS: BMI 17.2
[2022-10-27] MEDS ORDERED: KETAMINE HCL 500 MG/10 ML VIAL ONE (16:15)
[2022-10-27] MEDS ORDERED: MIDAZOLAM HCL 2 MG/2 ML SINGLE DOSE VIAL ONE (16:26)
[2022-10-27] MEDS ORDERED: ceFAZolin SODIUM 1 GM VIAL IVPB ONE (16:45)
[2022-10-27] MEDS ORDERED: GENTAMICIN SO4 80 MG/2 ML VIAL IVPB ONE (17:00)
[2022-10-27] MEDS ORDERED: LIDOCAINE HCL 1%, 10 MG/ML (20ML VIAL) INF ONE (17:01)
[2022-10-27] MEDS ORDERED: BUPIVACAINE HCL/PF 0.25% (2.5MG/ML) 10 ML VIAL IJ ONE (17:01)
[2022-10-27] MEDS ORDERED: ONDANSETRON 4 MG/2 ML VIAL IVPUSH PRN ×2 (19:04→20:31)
[2022-10-27] MEDS ORDERED: LACTATED RINGERS SOLUTION 1,000 ML IV SCH ×2 (19:15→20:31)
[2022-10-27] MEDS ORDERED: ACETAMINOPHEN 1000 MG/100 ML BAG IVPB PRN (20:31)
[2022-10-27] MEDS ORDERED: NORTRIPTYLINE HCL 25 MG CAPSULE PO SCH (22:00)
[2022-10-27] MEDS ORDERED: MIRTAZAPINE 15 MG TABLET (FP) PO SCH (22:00)
[2022-10-27] MEDS: D5-1/2NS+20 MEQ KCL - 20 MEQ/1,000 ML INFUS.BAG IV SCH (22:01)
[2022-10-27] MEDS: MIRTAZAPINE 15 MG TABLET (FP) PO SCH (22:03)
[2022-10-27] MEDS: NORTRIPTYLINE HCL 25 MG CAPSULE PO SCH (22:03)
[2022-10-27] MEDS: OXcarbazepine 150 MG TABLET (UD) PO SCH (22:04)
[2022-10-28] MEDS ORDERED: SODIUM CHLORIDE 250 ML IV STA (06:00)
[2022-10-28] MEDS: PREGABALIN 100 MG CAPSULE NR SCH ×3 (06:27→21:29)
[2022-10-28] MEDS: LEVOTHYROXINE NA 88 MCG TABLET (FP) PEG SCH (06:27)
[2022-10-28] MEDS: BACLOFEN 10 MG TABLET (FP) PEG SCH ×3 (06:27→21:29)
[2022-10-28] MEDS: ALBUTEROL SO4 2.5/IPRATROPIUM 0.5 INH SOL 3 ML VIAL.NEB. NEB SCH ×4 (08:05→19:33)
[2022-10-28] MEDS ORDERED: ACETAMINOPHEN 1000 MG/100 ML BAG IVPB ONE ×2 (09:04)
[2022-10-28 10:00] LABS: BASO % 0.2 % (0-2.0); EOS % 0.8 % (0-4.5); HEMATOCRIT 24.8 % (32.4-45.2); HEMOGLOBIN 7.7 GM/dL (10.7-15.3); MCH 23.2 pg (25.7-33.7); MCHC 30.9 g/dl (32.0-36.0); MEAN CELL VOLUME 75.1 fl (80-96); MEAN PLT VOLUME 7.7 fl (7.5-11.1); MONO % 4.5 % (3.8-10.2); NEUT % 88.5 % (42.8-82.8); PLATELET COUNT 480 10^3/uL (134-434); RBC 3.29 M/mm3 (3.60-5.2); RDW 17.5 % (11.6-15.6); WHITE BLOOD COUNT 14.2 K/mm3 (4.0-10.0)
[2022-10-28] MEDS: VANCOMYCIN/WATER FOR INJ (PEG) 1,000 MG/200 ML BAG IVPB SCH ×2 (10:03→21:21)
[2022-10-28] MEDS: amLODIPine BESYLATE 5 MG TABLET (FP) PEG SCH (10:04)
[2022-10-28] MEDS: PIPERACILLIN/TAZOB 3.375 GM 3.375 GM in DEXTROSE 5%-WATER - 50 ML IVPB SCH ×2 (10:05→17:09)
[2022-10-28] MEDS: SERTRALINE HCL 50 MG TABLET (FP) PEG SCH (10:05)
[2022-10-28] MEDS: OXcarbazepine 150 MG TABLET (UD) PO SCH ×2 (10:06→21:29)
[2022-10-28] MEDS: FAMOTIDINE 20 MG/2.5 ML ORAL LIQUID PEG SCH (10:06)
[2022-10-28 12:20] LABS: CHLORIDE 106 mmol/L (98-107); POTASSIUM 4.6 mmol/L (3.5-5.1); SODIUM 141 mmol/L (136-145)
[2022-10-28 13:11] LABS: ANION GAP 9 MMOL/L (8-16); CO2 25 mmol/L (21-32)
[2022-10-28] MEDS: D5-1/2NS+20 MEQ KCL - 20 MEQ/1,000 ML INFUS.BAG IV SCH (13:19)
[2022-10-28 13:25] LABS: SGPT/ALT < 6 U/L (13-61)
[2022-10-28 13:26] LABS: ALBUMIN 1.5 g/dl (3.4-5.0); BLOOD UREA NITROGEN 7.7 mg/dL (7-18); GLUCOSE,RANDOM 134 mg/dL (74-106)
[2022-10-28 13:30] LABS: CREATININE 0.4 mg/dL (0.55-1.3); SGOT/AST 14 U/L (15-37)
[2022-10-28 13:31] LABS: BILIRUBIN,TOTAL 0.3 mg/dL (0.2-1)
[2022-10-28 13:32] LABS: ALK PHOS 92 U/L (45-117); TOT PROT 6.4 g/dl (6.4-8.2)
[2022-10-28] MEDS ORDERED: SODIUM CHLORIDE 1,000 ML IV SCH (17:15)
[2022-10-28] MEDS ORDERED: SODIUM CHLORIDE 500 ML IV STA (18:38)
[2022-10-28] MEDS: NORTRIPTYLINE HCL 25 MG CAPSULE PO SCH (21:28)
[2022-10-28 23:42] LABS: EPI CELLS 12 /uL (0-25.1); HYALINE CASTS 1 /uL (0-3.1); PH,URINE 5.5 (5.0-8.0); URINE APPEARANCE CLOUDY; URINE BACTERIA 2261 /uL (0-1359); URINE BILIRUBIN NEGATIVE (NEGATIVE); URINE COLOR YELLOW; URINE GLUCOSE (UA) NEGATIVE (NEGATIVE); URINE KETONE NEGATIVE (NEGATIVE); URINE LEUK ESTERASE 3+ (NEGATIVE); URINE NITRITE POSITIVE (NEGATIVE); URINE PROTEIN 1+ (NEGATIVE); URINE RBC 18 /uL (0-23.9); URINE UROBILINOGEN 0.2 mg/dL (0.2-1.0); URINE WBC 1171 /uL (0-25.8)
[2022-10-29] MEDS: PIPERACILLIN/TAZOB 3.375 GM 3.375 GM in DEXTROSE 5%-WATER - 50 ML IVPB SCH ×3 (01:51→18:42)
[2022-10-29] MEDS: PREGABALIN 100 MG CAPSULE NR SCH ×3 (05:27→22:25)
[2022-10-29] MEDS: BACLOFEN 10 MG TABLET (FP) PEG SCH ×3 (05:27→22:25)
[2022-10-29] MEDS: LEVOTHYROXINE NA 88 MCG TABLET (FP) PEG SCH (06:00)
[2022-10-29] MEDS: ALBUTEROL SO4 2.5/IPRATROPIUM 0.5 INH SOL 3 ML VIAL.NEB. NEB SCH ×4 (07:20→20:40)
[2022-10-29] MEDS ORDERED: D5-1/2NS+20 MEQ KCL - 20 MEQ/1,000 ML INFUS.BAG IV SCH (08:11)
[2022-10-29] MEDS: D5-1/2NS+20 MEQ KCL - 20 MEQ/1,000 ML INFUS.BAG IV SCH (08:55)
[2022-10-29] MEDS: SERTRALINE HCL 50 MG TABLET (FP) PEG SCH (11:19)
[2022-10-29] MEDS: ENOXAPARIN NA (PORCINE) 40 MG/0.4 ML DISP.SYRIN SQ SCH (11:20)
[2022-10-29] MEDS: VANCOMYCIN/WATER FOR INJ (PEG) 1,000 MG/200 ML BAG IVPB SCH ×2 (11:21→22:24)
[2022-10-29] MEDS: OXcarbazepine 150 MG TABLET (UD) PO SCH ×2 (11:23→22:24)
[2022-10-29 12:04] LABS: HEMATOCRIT 24.5 % (32.4-45.2); MCH 23.1 pg (25.7-33.7); MCHC 27.5 g/dl (32.0-36.0); MEAN CELL VOLUME 83.9 fl (80-96); MEAN PLT VOLUME 8.3 fl (7.5-11.1); PLATELET COUNT 346 10^3/uL (134-434); RBC 2.92 M/mm3 (3.60-5.2); RDW 18.6 % (11.6-15.6)
[2022-10-29 12:16] LABS: HEMOGLOBIN 6.7 GM/dL (10.7-15.3)
[2022-10-29 12:31] LABS: ANISOCYTOSIS 1+; MACROCYTOSIS 1+
[2022-10-29 13:43] LABS: CHLORIDE 109 mmol/L (98-107); POTASSIUM 3.7 mmol/L (3.5-5.1); SODIUM 141 mmol/L (136-145)
[2022-10-29 13:46] LABS: CALCIUM 7.8 mg/dL (8.5-10.1)
[2022-10-29 13:47] LABS: ALBUMIN 1.4 g/dl (3.4-5.0); ANION GAP 11 MMOL/L (8-16); BLOOD UREA NITROGEN 9.8 mg/dL (7-18); CO2 22 mmol/L (21-32); GLUCOSE,RANDOM 100 mg/dL (74-106)
[2022-10-29 13:50] LABS: CREATININE 0.3 mg/dL (0.55-1.3); SGOT/AST 15 U/L (15-37)
[2022-10-29 13:52] LABS: BILIRUBIN,TOTAL 0.4 mg/dL (0.2-1); TOT PROT 6.3 g/dl (6.4-8.2)
[2022-10-29 13:57] LABS: ALK PHOS 119 U/L (45-117); SGPT/ALT < 6 U/L (13-61)
[2022-10-29] MEDS: FAMOTIDINE 20 MG/2.5 ML ORAL LIQUID PEG SCH (14:22)
[2022-10-29] MEDS: MIRTAZAPINE 15 MG TABLET (FP) PO SCH (22:24)
[2022-10-29] MEDS: NORTRIPTYLINE HCL 25 MG CAPSULE PO SCH (22:25)
[2022-10-30] MEDS: PIPERACILLIN/TAZOB 3.375 GM 3.375 GM in DEXTROSE 5%-WATER - 50 ML IVPB SCH ×3 (01:57→18:06)
[2022-10-30] MEDS: BACLOFEN 10 MG TABLET (FP) PEG SCH ×3 (05:23→21:28)
[2022-10-30] MEDS: PREGABALIN 100 MG CAPSULE NR SCH ×3 (05:23→21:28)
[2022-10-30] MEDS: D5-1/2NS+20 MEQ KCL - 20 MEQ/1,000 ML INFUS.BAG IV SCH ×2 (05:32→08:15)
[2022-10-30] MEDS: LEVOTHYROXINE NA 88 MCG TABLET (FP) PEG SCH (06:02)
[2022-10-30] MEDS: ALBUTEROL SO4 2.5/IPRATROPIUM 0.5 INH SOL 3 ML VIAL.NEB. NEB SCH ×4 (08:44→20:35)
[2022-10-30 09:48] LABS: BASO % 0.2 % (0-2.0); EOS % 1.8 % (0-4.5); HEMATOCRIT 31.3 % (32.4-45.2); HEMOGLOBIN 9.9 GM/dL (10.7-15.3); LYMPH % 3.3 % (8-40); MCH 24.9 pg (25.7-33.7); MCHC 31.7 g/dl (32.0-36.0); MEAN CELL VOLUME 78.5 fl (80-96); MEAN PLT VOLUME 7.6 fl (7.5-11.1); MONO % 3.8 % (3.8-10.2); NEUT % 90.9 % (42.8-82.8); PLATELET COUNT 333 10^3/uL (134-434); RBC 3.99 M/mm3 (3.60-5.2); RDW 17.2 % (11.6-15.6); WHITE BLOOD COUNT 15.5 K/mm3 (4.0-10.0)
[2022-10-30] MEDS ORDERED: PIPERACILLIN/TAZOBACTAM 3.375 GM VIAL IVPB ONE (09:54)
[2022-10-30] MEDS: ENOXAPARIN NA (PORCINE) 40 MG/0.4 ML DISP.SYRIN SQ SCH (09:57)
[2022-10-30] MEDS: SERTRALINE HCL 50 MG TABLET (FP) PEG SCH (09:57)
[2022-10-30] MEDS: FAMOTIDINE 20 MG/2.5 ML ORAL LIQUID PEG SCH (09:58)
[2022-10-30] MEDS: OXcarbazepine 150 MG TABLET (UD) PO SCH (09:59)
[2022-10-30] MEDS: amLODIPine BESYLATE 5 MG TABLET (FP) PEG SCH (10:00)
[2022-10-30 10:10] LABS: CHLORIDE 111 mmol/L (98-107); POTASSIUM 3.2 mmol/L (3.5-5.1)
[2022-10-30 10:11] LABS: CALCIUM 7.7 mg/dL (8.5-10.1)
[2022-10-30 10:12] LABS: ALBUMIN 1.3 g/dl (3.4-5.0); BLOOD UREA NITROGEN 10.1 mg/dL (7-18); CO2 23 mmol/L (21-32); GLUCOSE,RANDOM 168 mg/dL (74-106)
[2022-10-30 10:15] LABS: CREATININE 0.3 mg/dL (0.55-1.3); SGOT/AST 10 U/L (15-37)
[2022-10-30 10:17] LABS: BILIRUBIN,TOTAL 0.4 mg/dL (0.2-1); TOT PROT 5.5 g/dl (6.4-8.2)
[2022-10-30 10:18] LABS: ALK PHOS 128 U/L (45-117)
[2022-10-30 10:19] LABS: ANION GAP 9 MMOL/L (8-16); SGPT/ALT < 6 U/L (13-61); SODIUM 143 mmol/L (136-145)
[2022-10-30] MEDS ORDERED: POTASSIUM CHLORIDE ORAL LIQUID 20 MEQ/15 ML PO ONE (11:15)
[2022-10-30] MEDS: VANCOMYCIN/WATER FOR INJ (PEG) 1,000 MG/200 ML BAG IVPB SCH (11:40)
[2022-10-30] MEDS: MIRTAZAPINE 15 MG TABLET (FP) PO SCH (21:28)
[2022-10-30] MEDS: NORTRIPTYLINE HCL 25 MG CAPSULE PO SCH (21:29)
[2022-10-30] MEDS: OXcarbazepine 300 MG/5 ML UNIT DOSE CUPS PEG SCH (21:30)
[2022-10-31] MEDS ORDERED: ACETAMINOPHEN 650 MG/20.3 ML ORAL SOLUTION (CUPS) PEG ONE (01:46)
[2022-10-31] MEDS: PIPERACILLIN/TAZOB 3.375 GM 3.375 GM in DEXTROSE 5%-WATER - 50 ML IVPB SCH ×3 (01:54→17:21)
[2022-10-31] MEDS: PREGABALIN 100 MG CAPSULE NR SCH ×3 (05:51→21:42)
[2022-10-31] MEDS: BACLOFEN 10 MG TABLET (FP) PEG SCH ×3 (05:51→21:43)
[2022-10-31] MEDS: LEVOTHYROXINE NA 88 MCG TABLET (FP) PEG SCH (06:08)
[2022-10-31] MEDS: ALBUTEROL SO4 2.5/IPRATROPIUM 0.5 INH SOL 3 ML VIAL.NEB. NEB SCH ×4 (08:15→20:35)
[2022-10-31] MEDS: amLODIPine BESYLATE 5 MG TABLET (FP) PEG SCH (10:00)
[2022-10-31] MEDS: SERTRALINE HCL 50 MG TABLET (FP) PEG SCH (10:01)
[2022-10-31] MEDS: FAMOTIDINE 20 MG/2.5 ML ORAL LIQUID PEG SCH (10:01)
[2022-10-31] MEDS: MULTIVIT-MINERALS ORAL LIQUID PO SCH (10:01)
[2022-10-31] MEDS: ASCORBIC ACID 500 MG TABLET (FP) PO SCH (10:01)
[2022-10-31] MEDS: OXcarbazepine 300 MG/5 ML UNIT DOSE CUPS PEG SCH ×2 (10:02→21:43)
[2022-10-31] MEDS: AMINO ACIDS/PROTEIN HYDROLYS 30 ML LIQUID.PKT PO SCH (10:04)
[2022-10-31] MEDS: MIRTAZAPINE 15 MG TABLET (FP) PO SCH (21:42)
[2022-10-31] MEDS: NORTRIPTYLINE HCL 25 MG CAPSULE PO SCH (21:43)
[2022-11-01] MEDS: PIPERACILLIN/TAZOB 3.375 GM 3.375 GM in DEXTROSE 5%-WATER - 50 ML IVPB SCH ×3 (01:39→17:40)
[2022-11-01] MEDS: PREGABALIN 100 MG CAPSULE NR SCH ×3 (05:28→22:41)
[2022-11-01] MEDS: BACLOFEN 10 MG TABLET (FP) PEG SCH ×3 (05:28→22:41)
[2022-11-01] MEDS: LEVOTHYROXINE NA 88 MCG TABLET (FP) PEG SCH (06:50)
[2022-11-01] MEDS: ALBUTEROL SO4 2.5/IPRATROPIUM 0.5 INH SOL 3 ML VIAL.NEB. NEB SCH ×4 (08:15→20:36)
[2022-11-01] MEDS ORDERED: PIPERACILLIN/TAZOBACTAM 3.375 GM VIAL IVPB ONE (08:40)
[2022-11-01] MEDS: amLODIPine BESYLATE 5 MG TABLET (FP) PEG SCH (09:47)
[2022-11-01] MEDS: SERTRALINE HCL 50 MG TABLET (FP) PEG SCH (09:52)
[2022-11-01] MEDS: ASCORBIC ACID 500 MG TABLET (FP) PO SCH (09:52)
[2022-11-01] MEDS: FAMOTIDINE 20 MG/2.5 ML ORAL LIQUID PEG SCH (09:52)
[2022-11-01] MEDS: MULTIVIT-MINERALS ORAL LIQUID PO SCH (09:53)
[2022-11-01] MEDS: AMINO ACIDS/PROTEIN HYDROLYS 30 ML LIQUID.PKT PO SCH (09:54)
[2022-11-01] MEDS: OXcarbazepine 300 MG/5 ML UNIT DOSE CUPS PEG SCH ×2 (09:55→22:43)
[2022-11-01 17:46] LABS: BASO % 0.1 % (0-2.0); EOS % 3.2 % (0-4.5); HEMATOCRIT 30.6 % (32.4-45.2); HEMOGLOBIN 9.5 GM/dL (10.7-15.3); LYMPH % 10.8 % (8-40); MCH 24.9 pg (25.7-33.7); MCHC 31.1 g/dl (32.0-36.0); MEAN CELL VOLUME 80.2 fl (80-96); MEAN PLT VOLUME 8.6 fl (7.5-11.1); MONO % 6.3 % (3.8-10.2); NEUT % 79.6 % (42.8-82.8); PLATELET COUNT 271 10^3/uL (134-434); RBC 3.81 M/mm3 (3.60-5.2); RDW 17.6 % (11.6-15.6); WHITE BLOOD COUNT 11.6 K/mm3 (4.0-10.0)
[2022-11-01 18:02] LABS: CHLORIDE 107 mmol/L (98-107); POTASSIUM 3.5 mmol/L (3.5-5.1); SODIUM 141 mmol/L (136-145)
[2022-11-01 18:04] LABS: CALCIUM 7.7 mg/dL (8.5-10.1)
[2022-11-01 18:06] LABS: ALBUMIN 1.2 g/dl (3.4-5.0); ANION GAP 5 MMOL/L (8-16); BLOOD UREA NITROGEN 16.5 mg/dL (7-18); CO2 29 mmol/L (21-32); GLUCOSE,RANDOM 125 mg/dL (74-106)
[2022-11-01 18:08] LABS: CREATININE 0.2 mg/dL (0.55-1.3); SGOT/AST 9 U/L (15-37); SGPT/ALT < 6 U/L (13-61)
[2022-11-01 18:09] LABS: BILIRUBIN,TOTAL 0.2 mg/dL (0.2-1)
[2022-11-01 18:10] LABS: TOT PROT 5.4 g/dl (6.4-8.2)
[2022-11-01 18:11] LABS: ALK PHOS 126 U/L (45-117)
[2022-11-01] MEDS: MIRTAZAPINE 15 MG TABLET (FP) PO SCH (22:41)
[2022-11-01] MEDS: NORTRIPTYLINE HCL 25 MG CAPSULE PO SCH (22:42)
[2022-11-02] MEDS ORDERED: PIPERACILLIN/TAZOBACTAM 3.375 GM VIAL IVPB ONE (02:20)
[2022-11-02] MEDS: PIPERACILLIN/TAZOB 3.375 GM 3.375 GM in DEXTROSE 5%-WATER - 50 ML IVPB SCH ×3 (02:59→20:16)
[2022-11-02] MEDS: PREGABALIN 100 MG CAPSULE NR SCH ×3 (05:43→22:51)
[2022-11-02] MEDS: BACLOFEN 10 MG TABLET (FP) PEG SCH ×3 (05:43→22:51)
[2022-11-02] MEDS: LEVOTHYROXINE NA 88 MCG TABLET (FP) PEG SCH (06:08)
[2022-11-02] MEDS: ALBUTEROL SO4 2.5/IPRATROPIUM 0.5 INH SOL 3 ML VIAL.NEB. NEB SCH ×4 (08:00→20:10)
[2022-11-02] MEDS: AMINO ACIDS/PROTEIN HYDROLYS 30 ML LIQUID.PKT PO SCH (08:43)
[2022-11-02 09:13] LABS: BASO % 0.1 % (0-2.0); EOS % 2.4 % (0-4.5); HEMATOCRIT 28.8 % (32.4-45.2); LYMPH % 8.4 % (8-40); MCH 24.8 pg (25.7-33.7); MCHC 31.2 g/dl (32.0-36.0); MEAN CELL VOLUME 79.5 fl (80-96); MEAN PLT VOLUME 8.3 fl (7.5-11.1); MONO % 6.8 % (3.8-10.2); NEUT % 82.3 % (42.8-82.8); PLATELET COUNT 245 10^3/uL (134-434); RBC 3.62 M/mm3 (3.60-5.2); RDW 17.8 % (11.6-15.6); WHITE BLOOD COUNT 13.7 K/mm3 (4.0-10.0)
[2022-11-02 09:40] LABS: POTASSIUM 3.8 mmol/L (3.5-5.1)
[2022-11-02 09:48] LABS: CALCIUM 7.6 mg/dL (8.5-10.1)
[2022-11-02 09:49] LABS: ALBUMIN 1.1 g/dl (3.4-5.0); BLOOD UREA NITROGEN 17.4 mg/dL (7-18)
[2022-11-02 09:51] LABS: CREATININE 0.2 mg/dL (0.55-1.3)
[2022-11-02 09:52] LABS: BILIRUBIN,TOTAL 0.2 mg/dL (0.2-1)
[2022-11-02 09:53] LABS: TOT PROT 5.3 g/dl (6.4-8.2)
[2022-11-02] MEDS: ACETAMINOPHEN 650 MG/20.3 ML ORAL SOLUTION (CUPS) PEG PRN ×2 (10:13→22:53)
[2022-11-02] MEDS: ASCORBIC ACID 500 MG TABLET (FP) PO SCH (10:14)
[2022-11-02] MEDS: amLODIPine BESYLATE 5 MG TABLET (FP) PEG SCH (10:14)
[2022-11-02] MEDS: SERTRALINE HCL 50 MG TABLET (FP) PEG SCH (10:14)
[2022-11-02] MEDS: FAMOTIDINE 20 MG/2.5 ML ORAL LIQUID PEG SCH (11:49)
[2022-11-02] MEDS: MULTIVIT-MINERALS ORAL LIQUID PO SCH (11:52)
[2022-11-02] MEDS: OXcarbazepine 300 MG/5 ML UNIT DOSE CUPS PEG SCH ×2 (12:02→22:52)
[2022-11-02] MEDS: MIRTAZAPINE 15 MG TABLET (FP) PO SCH (22:51)
[2022-11-02] MEDS: NORTRIPTYLINE HCL 25 MG CAPSULE PO SCH (22:51)
[2022-11-03] MEDS: PIPERACILLIN/TAZOB 3.375 GM 3.375 GM in DEXTROSE 5%-WATER - 50 ML IVPB SCH ×3 (02:38→17:27)
[2022-11-03] MEDS: LEVOTHYROXINE NA 88 MCG TABLET (FP) PEG SCH (06:14)
[2022-11-03] MEDS: BACLOFEN 10 MG TABLET (FP) PEG SCH ×3 (06:14→21:51)
[2022-11-03] MEDS: PREGABALIN 100 MG CAPSULE NR SCH ×3 (07:32→21:51)
[2022-11-03] MEDS: ALBUTEROL SO4 2.5/IPRATROPIUM 0.5 INH SOL 3 ML VIAL.NEB. NEB SCH ×4 (08:44→20:05)
[2022-11-03] MEDS: SERTRALINE HCL 50 MG TABLET (FP) PEG SCH (09:56)
[2022-11-03] MEDS: FAMOTIDINE 20 MG/2.5 ML ORAL LIQUID PEG SCH (09:57)
[2022-11-03] MEDS: MULTIVIT-MINERALS ORAL LIQUID PO SCH (09:57)
[2022-11-03] MEDS: ASCORBIC ACID 500 MG TABLET (FP) PO SCH (09:57)
[2022-11-03] MEDS: OXcarbazepine 300 MG/5 ML UNIT DOSE CUPS PEG SCH ×2 (09:58→21:52)
[2022-11-03] MEDS: AMINO ACIDS/PROTEIN HYDROLYS 30 ML LIQUID.PKT PO SCH (10:03)
[2022-11-03] MEDS: amLODIPine BESYLATE 5 MG TABLET (FP) PEG SCH (10:55)
[2022-11-03 11:19] LABS: BASO % 0.3 % (0-2.0); EOS % 4.8 % (0-4.5); HEMATOCRIT 30.5 % (32.4-45.2); HEMOGLOBIN 9.6 GM/dL (10.7-15.3); LYMPH % 11.5 % (8-40); MCH 24.9 pg (25.7-33.7); MCHC 31.4 g/dl (32.0-36.0); MEAN CELL VOLUME 79.3 fl (80-96); MEAN PLT VOLUME 8.8 fl (7.5-11.1); MONO % 8.9 % (3.8-10.2); NEUT % 74.5 % (42.8-82.8); PLATELET COUNT 303 10^3/uL (134-434); RBC 3.84 M/mm3 (3.60-5.2); RDW 18.9 % (11.6-15.6); WHITE BLOOD COUNT 13.8 K/mm3 (4.0-10.0)
[2022-11-03] MEDS: NORTRIPTYLINE HCL 25 MG CAPSULE PO SCH (21:51)
[2022-11-03] MEDS: MIRTAZAPINE 15 MG TABLET (FP) PO SCH (21:51)
[2022-11-03] MEDS: ACETAMINOPHEN 650 MG/20.3 ML ORAL SOLUTION (CUPS) PEG PRN (21:55)
[2022-11-04] MEDS: PIPERACILLIN/TAZOB 3.375 GM 3.375 GM in DEXTROSE 5%-WATER - 50 ML IVPB SCH ×3 (01:13→18:23)
[2022-11-04] MEDS ORDERED: ALBUTEROL SO4 0.083% IH SOL 2.5 MG/3 ML VIAL.NEB. NEB ONE (06:26)
[2022-11-04] MEDS ORDERED: ACETYLCYSTEINE 20% 200MG/ML 4 ML VIAL *FOR ORAL / INH USE ONLY NEB ONE (06:26)
[2022-11-04 06:33] LABS: ARTERIAL BLOOD GAS BASE EXCESS 1.9 mmol/L (-2-2); ARTERIAL BLOOD GAS PO2 96.9 mmHg (80-100); ARTERIAL BLOOD GAS pH 7.245 (7.350-7.450)
[2022-11-04 06:34] LABS: ALLENS TEST POSITIVE
[2022-11-04 06:35] LABS: VENT RATE 12
[2022-11-04 06:52] LABS: HEMATOCRIT 35.6 % (32.4-45.2); HEMOGLOBIN 10.8 GM/dL (10.7-15.3); MCHC 30.4 g/dl (32.0-36.0); MEAN CELL VOLUME 82.3 fl (80-96); MEAN PLT VOLUME 9.2 fl (7.5-11.1); PLATELET COUNT 480 10^3/uL (134-434); RBC 4.33 M/mm3 (3.60-5.2); RDW 19.2 % (11.6-15.6); WHITE BLOOD COUNT 21.1 K/mm3 (4.0-10.0)
[2022-11-04] MEDS: PREGABALIN 100 MG CAPSULE NR SCH ×3 (06:53→22:07)
[2022-11-04] MEDS: BACLOFEN 10 MG TABLET (FP) PEG SCH ×3 (06:53→22:08)
[2022-11-04] MEDS: LEVOTHYROXINE NA 88 MCG TABLET (FP) PEG SCH (06:54)
[2022-11-04 07:14] LABS: POTASSIUM 4.7 mmol/L (3.5-5.1)
[2022-11-04 07:17] LABS: BLOOD UREA NITROGEN 20.4 mg/dL (7-18); MAGNESIUM 2.2 mg/dL (1.8-2.4)
[2022-11-04 07:20] LABS: CREATININE 0.4 mg/dL (0.55-1.3); PHOSPHOROUS 4.5 mg/dL (2.5-4.9)
[2022-11-04] MEDS: ALBUTEROL SO4 2.5/IPRATROPIUM 0.5 INH SOL 3 ML VIAL.NEB. NEB SCH ×4 (07:20→21:00)
[2022-11-04 07:21] LABS: BILIRUBIN,TOTAL 0.2 mg/dL (0.2-1)
[2022-11-04 07:37] LABS: ALBUMIN 1.4 g/dl (3.4-5.0); TOT PROT 7.4 g/dl (6.4-8.2)
[2022-11-04 09:11] LABS: ANISOCYTOSIS 3+; MACROCYTOSIS 0
[2022-11-04 13:12] LABS: ARTERIAL BLD GAS O2 SATURATION 97.6 % (95-98); ARTERIAL BLOOD GAS BASE EXCESS 6.2 mmol/L (-2-2); ARTERIAL BLOOD GAS pH 7.455 (7.350-7.450)
[2022-11-04 13:14] LABS: ALLENS TEST POSITIVE
[2022-11-04 13:15] LABS: VENT MODE AC; VENT RATE 12
[2022-11-04] MEDS: SERTRALINE HCL 50 MG TABLET (FP) PEG SCH (15:53)
[2022-11-04] MEDS: ASCORBIC ACID 500 MG TABLET (FP) PO SCH (15:53)
[2022-11-04] MEDS: AMINO ACIDS/PROTEIN HYDROLYS 30 ML LIQUID.PKT PO SCH (15:54)
[2022-11-04] MEDS: MULTIVIT-MINERALS ORAL LIQUID PO SCH (15:58)
[2022-11-04] MEDS: OXcarbazepine 300 MG/5 ML UNIT DOSE CUPS PEG SCH ×2 (15:58→22:10)
[2022-11-04] MEDS: FAMOTIDINE 20 MG/2.5 ML ORAL LIQUID PEG SCH (16:00)
[2022-11-04] MEDS: amLODIPine BESYLATE 5 MG TABLET (FP) PEG SCH (17:02)
[2022-11-04] MEDS ORDERED: SODIUM CHLORIDE 250 ML IV STA (19:56)
[2022-11-04] MEDS: ACETAMINOPHEN 650 MG/20.3 ML ORAL SOLUTION (CUPS) PEG PRN (22:06)
[2022-11-04] MEDS: MIRTAZAPINE 15 MG TABLET (FP) PO SCH (22:07)
[2022-11-04] MEDS: NORTRIPTYLINE HCL 25 MG CAPSULE PO SCH (22:10)
[2022-11-05] MEDS: PIPERACILLIN/TAZOB 3.375 GM 3.375 GM in DEXTROSE 5%-WATER - 50 ML IVPB SCH ×3 (02:37→18:04)
[2022-11-05] MEDS: BACLOFEN 10 MG TABLET (FP) PEG SCH ×3 (06:38→22:13)
[2022-11-05] MEDS: LEVOTHYROXINE NA 88 MCG TABLET (FP) PEG SCH (06:38)
[2022-11-05] MEDS: PREGABALIN 100 MG CAPSULE NR SCH ×3 (06:38→22:13)
[2022-11-05] MEDS: ALBUTEROL SO4 2.5/IPRATROPIUM 0.5 INH SOL 3 ML VIAL.NEB. NEB SCH ×4 (08:10→20:30)
[2022-11-05] MEDS: SERTRALINE HCL 50 MG TABLET (FP) PEG SCH (09:52)
[2022-11-05] MEDS: ASCORBIC ACID 500 MG TABLET (FP) PO SCH (09:52)
[2022-11-05] MEDS: OXcarbazepine 300 MG/5 ML UNIT DOSE CUPS PEG SCH ×2 (09:53→22:14)
[2022-11-05] MEDS: MULTIVIT-MINERALS ORAL LIQUID PO SCH (09:53)
[2022-11-05] MEDS: FAMOTIDINE 20 MG/2.5 ML ORAL LIQUID PEG SCH (09:53)
[2022-11-05] MEDS: AMINO ACIDS/PROTEIN HYDROLYS 30 ML LIQUID.PKT PO SCH (09:56)
[2022-11-05 11:04] LABS: BASO % 0.2 % (0-2.0); EOS % 2.5 % (0-4.5); HEMATOCRIT 26.6 % (32.4-45.2); HEMOGLOBIN 8.3 GM/dL (10.7-15.3); LYMPH % 9.7 % (8-40); MCH 25.1 pg (25.7-33.7); MCHC 31.4 g/dl (32.0-36.0); MEAN CELL VOLUME 79.9 fl (80-96); MEAN PLT VOLUME 8.9 fl (7.5-11.1); MONO % 8.7 % (3.8-10.2); NEUT % 78.9 % (42.8-82.8); PLATELET COUNT 294 10^3/uL (134-434); RBC 3.32 M/mm3 (3.60-5.2); RDW 19.1 % (11.6-15.6); WHITE BLOOD COUNT 11.6 K/mm3 (4.0-10.0)
[2022-11-05 11:29] LABS: POTASSIUM 3.3 mmol/L (3.5-5.1)
[2022-11-05 11:33] LABS: ALBUMIN 1.2 g/dl (3.4-5.0); CALCIUM 7.9 mg/dL (8.5-10.1)
[2022-11-05 11:36] LABS: CREATININE 0.4 mg/dL (0.55-1.3)
[2022-11-05 11:38] LABS: BILIRUBIN,TOTAL 0.1 mg/dL (0.2-1); TOT PROT 6.2 g/dl (6.4-8.2)
[2022-11-05] MEDS: amLODIPine BESYLATE 5 MG TABLET (FP) PEG SCH (13:53)
[2022-11-05] MEDS ORDERED: POTASSIUM CHLORIDE ORAL LIQUID 20 MEQ/15 ML PO ONE (14:58)
[2022-11-05] MEDS ORDERED: POTASSIUM CHLORIDE ORAL LIQUID 20 MEQ/15 ML PEG ONE (14:58)
[2022-11-05] MEDS: ACETAMINOPHEN 650 MG/20.3 ML ORAL SOLUTION (CUPS) PEG PRN (22:12)
[2022-11-05] MEDS: MIRTAZAPINE 15 MG TABLET (FP) PO SCH (22:13)
[2022-11-05] MEDS: NORTRIPTYLINE HCL 25 MG CAPSULE PO SCH (22:15)
[2022-11-06] MEDS: PIPERACILLIN/TAZOB 3.375 GM 3.375 GM in DEXTROSE 5%-WATER - 50 ML IVPB SCH (02:37)
[2022-11-06] MEDS: PREGABALIN 100 MG CAPSULE NR SCH ×3 (06:40→23:35)
[2022-11-06] MEDS: LEVOTHYROXINE NA 88 MCG TABLET (FP) PEG SCH (06:40)
[2022-11-06] MEDS: BACLOFEN 10 MG TABLET (FP) PEG SCH ×3 (06:40→23:35)
[2022-11-06] MEDS: ALBUTEROL SO4 2.5/IPRATROPIUM 0.5 INH SOL 3 ML VIAL.NEB. NEB SCH ×4 (08:20→20:05)
[2022-11-06 09:11] LABS: BASO % 0.1 % (0-2.0); EOS % 4.7 % (0-4.5); HEMATOCRIT 26.4 % (32.4-45.2); HEMOGLOBIN 8.1 GM/dL (10.7-15.3); LYMPH % 9.6 % (8-40); MCH 24.9 pg (25.7-33.7); MCHC 30.5 g/dl (32.0-36.0); MEAN CELL VOLUME 81.6 fl (80-96); MEAN PLT VOLUME 9.4 fl (7.5-11.1); MONO % 7.1 % (3.8-10.2); NEUT % 78.5 % (42.8-82.8); PLATELET COUNT 296 10^3/uL (134-434); RBC 3.24 M/mm3 (3.60-5.2); RDW 18.9 % (11.6-15.6); WHITE BLOOD COUNT 9.1 K/mm3 (4.0-10.0)
[2022-11-06] MEDS: AMINO ACIDS/PROTEIN HYDROLYS 30 ML LIQUID.PKT PO SCH (09:30)
[2022-11-06 09:31] LABS: POTASSIUM 4.3 mmol/L (3.5-5.1)
[2022-11-06] MEDS: amLODIPine BESYLATE 5 MG TABLET (FP) PEG SCH (09:31)
[2022-11-06] MEDS: SERTRALINE HCL 50 MG TABLET (FP) PEG SCH (09:31)
[2022-11-06] MEDS: ASCORBIC ACID 500 MG TABLET (FP) PO SCH (09:31)
[2022-11-06 09:34] LABS: BLOOD UREA NITROGEN 18.4 mg/dL (7-18)
[2022-11-06 09:35] LABS: ALBUMIN 1.1 g/dl (3.4-5.0); CALCIUM 7.7 mg/dL (8.5-10.1)
[2022-11-06 09:38] LABS: CREATININE 0.2 mg/dL (0.55-1.3)
[2022-11-06 09:39] LABS: BILIRUBIN,TOTAL 0.2 mg/dL (0.2-1)
[2022-11-06] MEDS: ACETAMINOPHEN 650 MG/20.3 ML ORAL SOLUTION (CUPS) PEG PRN (15:03)
[2022-11-06] MEDS: OXcarbazepine 300 MG/5 ML UNIT DOSE CUPS PEG SCH (15:04)
[2022-11-06] MEDS: MULTIVIT-MINERALS ORAL LIQUID PO SCH (15:05)
[2022-11-06] MEDS: FAMOTIDINE 20 MG/2.5 ML ORAL LIQUID PEG SCH (15:06)
[2022-11-06] MEDS: NORTRIPTYLINE HCL 25 MG CAPSULE PO SCH (23:38)
[2022-11-06] MEDS: MIRTAZAPINE 15 MG TABLET (FP) PO SCH (23:38)
[2022-11-07] MEDS: OXcarbazepine 300 MG/5 ML UNIT DOSE CUPS PEG SCH ×2 (01:37→09:09)
[2022-11-07] MEDS: BACLOFEN 10 MG TABLET (FP) PEG SCH ×2 (05:47→14:35)
[2022-11-07] MEDS: PREGABALIN 100 MG CAPSULE NR SCH ×2 (05:47→14:35)
[2022-11-07] MEDS: LEVOTHYROXINE NA 88 MCG TABLET (FP) PEG SCH (06:17)
[2022-11-07] MEDS: ALBUTEROL SO4 2.5/IPRATROPIUM 0.5 INH SOL 3 ML VIAL.NEB. NEB SCH ×3 (08:10→15:35)
[2022-11-07] MEDS: SERTRALINE HCL 50 MG TABLET (FP) PEG SCH (09:06)
[2022-11-07] MEDS: AMINO ACIDS/PROTEIN HYDROLYS 30 ML LIQUID.PKT PO SCH (09:06)
[2022-11-07] MEDS: MULTIVIT-MINERALS ORAL LIQUID PO SCH (09:06)
[2022-11-07] MEDS: ASCORBIC ACID 500 MG TABLET (FP) PO SCH (09:06)
[2022-11-07] MEDS: FAMOTIDINE 20 MG/2.5 ML ORAL LIQUID PEG SCH (09:07)
[2022-11-07] MEDS: amLODIPine BESYLATE 5 MG TABLET (FP) PEG SCH (09:08)
[2022-11-07 11:51] VITALS: RESP 18
[2022-11-07] MEDS ORDERED: SILVER SULFADIAZINE 1% TOP CREAM 400 GM JAR TP SCH (13:15)
[2022-11-07 17:57] VITALS: BP 93/45; PULSE 100; TEMP 97.6
== END 2022-11-07 18:53 | disposition home or self-care (01) | DRG 853 ==
LOC: JER 18:46 → SUPCPDRO 18:46 → JERBED 23:16 → J5S 10-27 04:57
PROVIDERS: ADMIT Internal Medicine; ATTEND Family Medicine
PROC: 0HR6XK3 Replacement of Back Skin with Nonautologous Tissue Substitute, Full Thickness, External Approach (ICD-10-PCS; 2022-10-27)
PROC: 0KBP0ZZ Excision of Left Hip Muscle, Open Approach (ICD-10-PCS; 2022-10-27)
PROC: 5A1935Z Respiratory Ventilation, Less than 24 Consecutive Hours (ICD-10-PCS; principal; 2022-10-28)
PROC: 0D20XUZ Change Feeding Device in Upper Intestinal Tract, External Approach (ICD-10-PCS; 2022-11-06)
DX: A41.9 Sepsis, unspecified organism (principal); E43 Unspecified severe protein-calorie malnutrition; L89.154 Pressure ulcer of sacral region, stage 4; L89.324 Pressure ulcer of left buttock, stage 4; L89.314 Pressure ulcer of right buttock, stage 4; J96.21 Acute and chronic respiratory failure with hypoxia; R53.2 Functional quadriplegia; J18.9 Pneumonia, unspecified organism; J98.11 Atelectasis; R64 Cachexia; Z68.1 Body mass index [BMI] 19.9 or less, adult; K94.23 Gastrostomy malfunction; Y83.8 Other surgical procedures as the cause of abnormal reaction of the patient, or of later complication, without mention of misadventure at the time of the procedure; Z93.0 Tracheostomy status; I10 Essential (primary) hypertension; E78.5 Hyperlipidemia, unspecified; G50.0 Trigeminal neuralgia; N31.9 Neuromuscular dysfunction of bladder, unspecified; E03.9 Hypothyroidism, unspecified; K59.09 Other constipation; D64.9 Anemia, unspecified; G35 Multiple sclerosis
CPT/HCPCS: 36415; 36430; 36600; 71045-TC-FY; 71275-TC; 74018-TC-FY; 80048; 80053; 81003; 82803; 82962; 82977; 83036; 83605; 83735; 84100; 84443; 85025; 85610; 85730; 86850; 86900; 86901; 86922; 87040; 87070; 87077; 87086; 87186; 87205; 87899; 93005; 93010; 94002; 94640; 94760; 99285-25; E0186; J0475; P9058; Q4121; Q9967

== ENCOUNTER 2023-05-15 19:03 | Inpatient (IN) | payer OTHER ==
[2023-05-15] MEDS ORDERED: ALBUTEROL SO4 2.5/IPRATROPIUM 0.5 INH SOL 3 ML VIAL.NEB. NEB ONE ×2 (19:22→20:17)
[2023-05-15] MEDS ORDERED: methylPREDNISolone NA SUCC 125 MG/2 ML VIAL ONE (20:10)
[2023-05-15] MEDS ORDERED: DEXAMETHASONE SOD PHOSPHATE 10 MG/1 ML VIAL ONE (20:12)
[2023-05-15] MEDS ORDERED: AZITHROMYCIN IVPB 500 MG/250 ML BAG IVPB ONE (20:12)
[2023-05-15] MEDS ORDERED: VANCOMYCIN 1 GRAM (PRE-DOCKED) 1,000 MG/250 ML BAG IVPB ONE (20:12)
[2023-05-15] MEDS ORDERED: PIPERACILLIN/TAZOB 3.375 GM 3.375 GM/50 ML BAG IVPB ONE ×2 (20:12→20:30)
[2023-05-15] MEDS ORDERED: RACEPINEPHRINE IH SOL 2.25% 11.25 MG/0.5 ML VIAL NEB ONE (20:17)
[2023-05-15] MEDS ORDERED: ALBUTEROL SO4 0.083% IH SOL 2.5 MG/3 ML VIAL.NEB. NEB ONE (20:19)
[2023-05-15] MEDS: AZITHROMYCIN IVPB 500 MG in DEXTROSE 5%-WATER - 250 ML IVPB ONE (20:31)
[2023-05-15] MEDS: ALBUTEROL SULFATE 0.021% (0.63 MG/3 ML) VIAL.NEB NEB ONE (20:31)
[2023-05-15] MEDS: RACEPINEPHRINE IH SOL 2.25% 11.25 MG/0.5 ML VIAL IH ONE (20:31)
[2023-05-15] MEDS: methylPREDNISolone NA SUCC 125 MG/2 ML VIAL IVPUSH ONE (20:31)
[2023-05-15] MEDS: DEXAMETHASONE SOD PHOSPHATE 10 MG/1 ML VIAL IVPUSH ONE (20:31)
[2023-05-15] MEDS: SODIUM CHLORIDE 1,500 ML IV STA (20:31)
[2023-05-15 20:41] LABS: HEMOGLOBIN 9.8 GM/dL (10.7-15.3); MCH 24.7 pg (25.7-33.7); MCHC 31.7 g/dl (32.0-36.0); MEAN CELL VOLUME 77.9 fl (80-96); MEAN PLT VOLUME 9.3 fl (7.5-11.1); PLATELET COUNT 227 10^3/uL (134-434); RBC 3.97 M/mm3 (3.60-5.2); RDW 17.7 % (11.6-15.6); WHITE BLOOD COUNT 13.3 K/mm3 (4.0-10.0)
[2023-05-15 20:48] LABS: VENOUS BASE EXCESS -4.7 mmol/L (-2-2); VENOUS O2 SATURATION 81.2 % (70-80); VENOUS PH 7.245 (7.310-7.410)
[2023-05-15 20:54] LABS: INR 1.63 (0.83-1.09); PROTHROMBIN TIME (PATIENT) 18.8 SEC (9.7-13.0)
[2023-05-15 20:57] LABS: ACTIVATED PTT 36.8 SECONDS (25.2-36.5)
[2023-05-15 21:08] LABS: POTASSIUM 4.1 mmol/L (3.5-5.1)
[2023-05-15 21:10] LABS: EPI CELLS >36 /uL (0-25.1); HYALINE CASTS 10 /uL (0-3.1); PH,URINE 5.5 (5.0-8.0); URINE APPEARANCE TURBID; URINE BILIRUBIN 2+ (NEGATIVE); URINE COLOR DK YELLOW; URINE GLUCOSE (UA) NEGATIVE (NEGATIVE); URINE KETONE TRACE (NEGATIVE); URINE LEUK ESTERASE 3+ (NEGATIVE); URINE NITRITE NEGATIVE (NEGATIVE); URINE PROTEIN 2+ (NEGATIVE); URINE WBC 1622 /uL (0-25.8)
[2023-05-15 21:11] LABS: BLOOD UREA NITROGEN 21.4 mg/dL (7-18); CALCIUM 8.5 mg/dL (8.5-10.1)
[2023-05-15 21:14] LABS: CREATININE 0.5 mg/dL (0.55-1.3)
[2023-05-15 21:16] LABS: BILIRUBIN,TOTAL 0.6 mg/dL (0.2-1); TOT PROT 6.9 g/dl (6.4-8.2)
[2023-05-15 21:19] LABS: N-TERMINAL BNP 4672.8 pg/ml (5-125)
[2023-05-15 21:47] LABS: ANISOCYTOSIS 1+; MACROCYTOSIS 0
[2023-05-15 22:00] LABS: URINE BACTERIA 958.3 /uL (0-1359); URINE RBC NONE SEEN /uL (0-23.9)
[2023-05-15] MEDS: VANCOMYCIN 1,000 MG in DEXTROSE 5%-WATER - 250 ML IVPB ONE (22:26)
[2023-05-15] MEDS: PIPERACILLIN/TAZOB 3.375 GM 3.375 GM in DEXTROSE 5%-WATER - 50 ML IVPB ONE (22:26)
[2023-05-15] MEDS: SODIUM CHLORIDE 1,000 ML IV SCH (22:51)
[2023-05-15] MEDS: MUPIROCIN 2% TOPICAL OINTMENT FOR DECOLONIZATION NS SCH (22:51)
[2023-05-15] MEDS: CHLORHEXIDINE GLUCONATE 4% CLEANSER FOR DECOLONIZATION TP SCH (22:51)
[2023-05-16] MEDS: PIPERACILLIN/TAZOB 3.375 GM 3.375 GM in DEXTROSE 5%-WATER - 50 ML IVPB SCH ×2 (03:25→11:37)
[2023-05-16] MEDS: ALBUTEROL SO4 2.5/IPRATROPIUM 0.5 INH SOL 3 ML VIAL.NEB. NEB SCH ×2 (04:06→15:14)
[2023-05-16 08:02] LABS: HEMOGLOBIN 9.5 GM/dL (10.7-15.3); MCH 24.1 pg (25.7-33.7); MCHC 30.8 g/dl (32.0-36.0); MEAN CELL VOLUME 78.4 fl (80-96); MEAN PLT VOLUME 9.1 fl (7.5-11.1); PLATELET COUNT 236 10^3/uL (134-434); RBC 3.95 M/mm3 (3.60-5.2); RDW 17.4 % (11.6-15.6); WHITE BLOOD COUNT 22.2 K/mm3 (4.0-10.0)
[2023-05-16 08:34] LABS: POTASSIUM 3.6 mmol/L (3.5-5.1)
[2023-05-16 08:39] LABS: ACTIVATED PTT 35.7 SECONDS (25.2-36.5)
[2023-05-16 08:41] LABS: CALCIUM 8.9 mg/dL (8.5-10.1); INR 1.44 (0.83-1.09); MAGNESIUM 1.9 mg/dL (1.8-2.4); PROTHROMBIN TIME (PATIENT) 16.6 SEC (9.7-13.0)
[2023-05-16 08:42] LABS: CREATININE 0.4 mg/dL (0.55-1.3)
[2023-05-16 08:44] LABS: BILIRUBIN,TOTAL 0.7 mg/dL (0.2-1); TOT PROT 7.1 g/dl (6.4-8.2)
[2023-05-16] MEDS: AZITHROMYCIN IVPB 500 MG/250 ML BAG IVPB SCH (09:59)
[2023-05-16] MEDS: ENOXAPARIN NA (PORCINE) 40 MG/0.4 ML DISP.SYRIN SQ SCH (10:00)
[2023-05-16] MEDS: FAMOTIDINE 20 MG/50 ML IVPB 20 MG/50 ML MG IVPB SCH (10:00)
[2023-05-16 10:48] LABS: ANISOCYTOSIS 0; HELMET CELLS 0; HOWELL-JOLLY BODIES 0; MACROCYTOSIS 0; OVALOCYTE 0; ROULEAU 0; SICKELED CELLS 0; TARGET CELLS 0; TEAR DROP CELLS 0; TOXIC GRANULATION 0
[2023-05-16] MEDS: VANCOMYCIN/WATER FOR INJ (PEG) 1,000 MG/200 ML BAG IVPB SCH ×2 (12:43→23:11)
[2023-05-16] MEDS: CEFTRIAXONE 2 GM in DEXTROSE 5%-WATER 100 ML IVPB SCH (12:43)
[2023-05-16] MEDS: AMINO ACIDS/PROTEIN HYDROLYS 30 ML LIQUID.PKT PEG SCH (15:17)
[2023-05-16] MEDS: ASCORBIC ACID 500 MG/5 ML UNIT DOSE CUP PEG SCH (15:17)
[2023-05-16] MEDS: ONDANSETRON 4 MG/2 ML VIAL IVPUSH PRN (16:56)
[2023-05-16] MEDS ORDERED: INSULIN (NOVOLOG) ASPART 100 UNITS/ML 10ML VIAL ONE ×2 (17:10→17:38)
[2023-05-17] MEDS: LEVOTHYROXINE NA 88 MCG TABLET (FP) PEG SCH (07:05)
[2023-05-17 07:38] LABS: EOS % 0.1 % (0-4.5); HEMATOCRIT 25.3 % (32.4-45.2); HEMOGLOBIN 8.1 GM/dL (10.7-15.3); LYMPH % 5.8 % (8-40); MCHC 32.1 g/dl (32.0-36.0); MEAN PLT VOLUME 9.4 fl (7.5-11.1); MONO % 4.9 % (3.8-10.2); NEUT % 89.2 % (42.8-82.8); PLATELET COUNT 216 10^3/uL (134-434); RBC 3.25 M/mm3 (3.60-5.2); RDW 17.2 % (11.6-15.6); WHITE BLOOD COUNT 11.1 K/mm3 (4.0-10.0)
[2023-05-17 07:51] LABS: POTASSIUM 3.7 mmol/L (3.5-5.1)
[2023-05-17 08:02] LABS: CALCIUM 8.5 mg/dL (8.5-10.1)
[2023-05-17 08:03] LABS: ALBUMIN 1.7 g/dl (3.4-5.0); BLOOD UREA NITROGEN 18.9 mg/dL (7-18); MAGNESIUM 1.9 mg/dL (1.8-2.4)
[2023-05-17 08:06] LABS: CREATININE 0.4 mg/dL (0.55-1.3)
[2023-05-17 08:07] LABS: BILIRUBIN,TOTAL 0.4 mg/dL (0.2-1); TOT PROT 6.3 g/dl (6.4-8.2)
[2023-05-17] MEDS: SERTRALINE HCL 50 MG TABLET (FP) PEG SCH (09:31)
[2023-05-17] MEDS: OXcarbazepine 300 MG/5 ML UNIT DOSE CUPS PEG SCH (09:31)
[2023-05-17] MEDS: ZINC SULFATE 220 MG CAPSULE (FP) PEG SCH (09:31)
[2023-05-17] MEDS: MULTIVIT-MINERALS ORAL LIQUID PEG SCH (09:34)
[2023-05-17] MEDS ORDERED: PREGABALIN 100 MG CAPSULE PO SCH (09:45)
[2023-05-17] MEDS: amLODIPine BESYLATE 5 MG TABLET (FP) GT SCH (09:54)
[2023-05-17] MEDS: BACLOFEN 10 MG TABLET (FP) PEG SCH (09:55)
[2023-05-17] MEDS ORDERED: PATIENT'S OWN MEDICATION (NON-FORMULARY) (Sertraline Hcl [Zoloft] 100 MG Tablet) PO SCH (10:00)
[2023-05-17] MEDS: ALBUTEROL SO4 2.5/IPRATROPIUM 0.5 INH SOL 3 ML VIAL.NEB. NEB SCH (11:56)
[2023-05-17] MEDS: URSODIOL 300 MG CAPSULE NR SCH (11:58)
[2023-05-17] MEDS: PREGABALIN 100 MG CAPSULE NR SCH (13:49)
[2023-05-17] MEDS: MIRTAZAPINE 15 MG TABLET (FP) GT SCH (21:21)
[2023-05-17] MEDS: NORTRIPTYLINE HCL 25 MG CAPSULE NR SCH (21:21)
[2023-05-18] MEDS: LEVOTHYROXINE NA 88 MCG TABLET (FP) PEG SCH (06:02)
[2023-05-18 07:34] LABS: BASO % 0.1 % (0-2.0); EOS % 0.6 % (0-4.5); HEMATOCRIT 28.7 % (32.4-45.2); LYMPH % 6.7 % (8-40); MCH 24.6 pg (25.7-33.7); MCHC 31.3 g/dl (32.0-36.0); MEAN CELL VOLUME 78.5 fl (80-96); MONO % 5.5 % (3.8-10.2); NEUT % 87.1 % (42.8-82.8); PLATELET COUNT 242 10^3/uL (134-434); RBC 3.65 M/mm3 (3.60-5.2); RDW 17.2 % (11.6-15.6); WHITE BLOOD COUNT 12.5 K/mm3 (4.0-10.0)
[2023-05-18] MEDS: COLLAGENASE CLOSTRIDIUM HIST. 30 GRAMS TUBE TP SCH (09:17)
[2023-05-18] MEDS: SODIUM CHLORIDE 1,000 ML IV SCH (23:26)
[2023-05-19] MEDS: VANCOMYCIN/WATER FOR INJ (PEG) 1,000 MG/200 ML BAG IVPB SCH (00:30)
[2023-05-19] MEDS: PREGABALIN 100 MG CAPSULE NR SCH (05:29)
[2023-05-19] MEDS: BACLOFEN 10 MG TABLET (FP) PEG SCH (05:29)
[2023-05-19] MEDS: LEVOTHYROXINE NA 88 MCG TABLET (FP) PEG SCH (06:01)
[2023-05-19] MEDS: ALBUTEROL SO4 2.5/IPRATROPIUM 0.5 INH SOL 3 ML VIAL.NEB. NEB SCH (07:30)
[2023-05-19] MEDS: AMINO ACIDS/PROTEIN HYDROLYS 30 ML LIQUID.PKT PEG SCH (09:31)
[2023-05-19] MEDS: URSODIOL 300 MG CAPSULE NR SCH (09:31)
[2023-05-19] MEDS: ENOXAPARIN NA (PORCINE) 40 MG/0.4 ML DISP.SYRIN SQ SCH (09:32)
[2023-05-19] MEDS: amLODIPine BESYLATE 5 MG TABLET (FP) GT SCH (09:32)
[2023-05-19] MEDS: ZINC SULFATE 220 MG CAPSULE (FP) PEG SCH (09:33)
[2023-05-19] MEDS: CEFTRIAXONE 2 GM in DEXTROSE 5%-WATER 100 ML IVPB SCH (09:33)
[2023-05-19] MEDS: OXcarbazepine 300 MG/5 ML UNIT DOSE CUPS PEG SCH (09:34)
[2023-05-19] MEDS: ASCORBIC ACID 500 MG/5 ML UNIT DOSE CUP PEG SCH (09:35)
[2023-05-19] MEDS: SERTRALINE HCL 50 MG TABLET (FP) PEG SCH (09:35)
[2023-05-19] MEDS ORDERED: MUPIROCIN 2% TOPICAL OINTMENT FOR DECOLONIZATION NS SCH (10:00)
[2023-05-19 10:42] LABS: BASO % 0.1 % (0-2.0); EOS % 2.5 % (0-4.5); HEMATOCRIT 26.4 % (32.4-45.2); HEMOGLOBIN 8.4 GM/dL (10.7-15.3); LYMPH % 13.9 % (8-40); MCH 25.2 pg (25.7-33.7); MCHC 32.1 g/dl (32.0-36.0); MEAN CELL VOLUME 78.6 fl (80-96); MONO % 8.8 % (3.8-10.2); NEUT % 74.7 % (42.8-82.8); PLATELET COUNT 207 10^3/uL (134-434); RBC 3.35 M/mm3 (3.60-5.2); RDW 17.6 % (11.6-15.6); WHITE BLOOD COUNT 8.7 K/mm3 (4.0-10.0)
[2023-05-19 10:55] LABS: POTASSIUM 4.4 mmol/L (3.5-5.1)
[2023-05-19 10:57] LABS: ALBUMIN 1.8 g/dl (3.4-5.0); CALCIUM 8.5 mg/dL (8.5-10.1)
[2023-05-19 11:01] LABS: CREATININE 0.3 mg/dL (0.55-1.3)
[2023-05-19 11:03] LABS: BILIRUBIN,TOTAL 0.3 mg/dL (0.2-1); TOT PROT 6.4 g/dl (6.4-8.2)
[2023-05-19] MEDS: MULTIVIT-MINERALS ORAL LIQUID PEG SCH (11:28)
[2023-05-19] MEDS: FAMOTIDINE 20 MG/50 ML IVPB 20 MG/50 ML MG IVPB SCH (11:30)
[2023-05-19] MEDS: AZITHROMYCIN IVPB 500 MG/250 ML BAG IVPB SCH (12:47)
[2023-05-19 13:34] VITALS: BMI 18.1
[2023-05-19] MEDS: MIRTAZAPINE 15 MG TABLET (FP) GT SCH (21:05)
[2023-05-19] MEDS: NORTRIPTYLINE HCL 25 MG CAPSULE NR SCH (21:05)
[2023-05-19] MEDS ORDERED: CHLORHEXIDINE GLUCONATE 4% CLEANSER FOR DECOLONIZATION TP SCH (22:00)
[2023-05-21 08:53] LABS: BASO % 0.2 % (0-2.0); EOS % 6.2 % (0-4.5); HEMATOCRIT 25.1 % (32.4-45.2); HEMOGLOBIN 7.9 GM/dL (10.7-15.3); LYMPH % 14.8 % (8-40); MCH 24.7 pg (25.7-33.7); MCHC 31.5 g/dl (32.0-36.0); MEAN CELL VOLUME 78.4 fl (80-96); MONO % 7.7 % (3.8-10.2); NEUT % 71.1 % (42.8-82.8); PLATELET COUNT 262 10^3/uL (134-434); RBC 3.21 M/mm3 (3.60-5.2); RDW 17.1 % (11.6-15.6); WHITE BLOOD COUNT 10.3 K/mm3 (4.0-10.0)
[2023-05-21] MEDS: ACETAMINOPHEN 500 MG TABLET (FP) PO ONE (18:11)
[2023-05-21 20:21] VITALS: BP 132/64; PULSE 93; RESP 17; TEMP 97.9
== END 2023-05-21 21:27 | disposition home or self-care (01) | DRG 871 ==
LOC: JER 19:03 → JERBED 21:15 → JICU 21:31 → J5S 05-18 23:59
PROVIDERS: ADMIT Internal Medicine Pulmonary Disease; ATTEND Family Medicine
PROC: 5A1945Z Respiratory Ventilation, 24-96 Consecutive Hours (ICD-10-PCS; principal; 2023-05-17)
DX: A41.9 Sepsis, unspecified organism (principal); J69.0 Pneumonitis due to inhalation of food and vomit; L89.154 Pressure ulcer of sacral region, stage 4; J96.21 Acute and chronic respiratory failure with hypoxia; J96.22 Acute and chronic respiratory failure with hypercapnia; R53.2 Functional quadriplegia; E87.1 Hypo-osmolality and hyponatremia; J95.851 Ventilator associated pneumonia; E27.1 Primary adrenocortical insufficiency; I10 Essential (primary) hypertension; E78.5 Hyperlipidemia, unspecified; G35 Multiple sclerosis; Z93.1 Gastrostomy status; N31.9 Neuromuscular dysfunction of bladder, unspecified; E03.9 Hypothyroidism, unspecified; Y83.8 Other surgical procedures as the cause of abnormal reaction of the patient, or of later complication, without mention of misadventure at the time of the procedure; F32.A Depression, unspecified; R91.1 Solitary pulmonary nodule; G50.0 Trigeminal neuralgia; H54.8 Legal blindness, as defined in USA; Z93.0 Tracheostomy status
CPT/HCPCS: 0241U-QW; 36415; 71045-TC-FY; 80053; 81003; 82533; 82803; 82962; 83605; 83735; 83880; 84100; 84436; 84443; 84479; 84484; 85025; 85610; 85730; 86140; 87040; 87070; 87077; 87081; 87086; 87186; 87205; 87899; 93005; 93010; 94002; 94010; 94640; 99285-25; G0480; J0475; J1100

== ENCOUNTER 2023-07-05 16:38 | Observation (INO) | payer OTHER ==
[2023-07-05 21:57] LABS: BASO % 0.4 % (0-2.0); EOS % 5.6 % (0-4.5); HEMATOCRIT 36.2 % (32.4-45.2); HEMOGLOBIN 11.3 GM/dL (10.7-15.3); LYMPH % 24.5 % (8-40); MCH 25.3 pg (25.7-33.7); MCHC 31.2 g/dl (32.0-36.0); MEAN PLT VOLUME 9.1 fl (7.5-11.1); NEUT % 60.5 % (42.8-82.8); PLATELET COUNT 329 10^3/uL (134-434); RBC 4.47 M/mm3 (3.60-5.2); RDW 18.7 % (11.6-15.6); WHITE BLOOD COUNT 9.2 K/mm3 (4.0-10.0)
[2023-07-05 21:59] LABS: POTASSIUM 4.3 mmol/L (3.5-5.1)
[2023-07-05 22:01] LABS: BLOOD UREA NITROGEN 15.1 mg/dL (7-18); CALCIUM 9.5 mg/dL (8.5-10.1)
[2023-07-05 22:02] LABS: ALBUMIN 2.4 g/dl (3.4-5.0)
[2023-07-05 22:04] LABS: INR 1.17 (0.83-1.09); PROTHROMBIN TIME (PATIENT) 13.2 SEC (9.7-13.0)
[2023-07-05 22:05] LABS: CREATININE 0.5 mg/dL (0.55-1.3)
[2023-07-05 22:06] LABS: BILIRUBIN,TOTAL 0.3 mg/dL (0.2-1); TOT PROT 7.9 g/dl (6.4-8.2)
[2023-07-05 22:07] LABS: ACTIVATED PTT 41.1 SECONDS (25.2-36.5)
[2023-07-05] MEDS: DEXTROSE 5%-0.45% SALINE 1,000 ML IV SCH (22:12)
[2023-07-06] MEDS: ACETAMINOPHEN 1000 MG/100 ML BAG IVPB PRN (01:05)
[2023-07-06] MEDS: diazePAM CARPU-JECT 10 MG/2 ML DISP.SYRIN IVPUSH ONE (01:06)
[2023-07-06 03:30] VITALS: BMI 16.5
[2023-07-06] MEDS: SODIUM CHLORIDE 500 ML IV STA ×2 (06:08→06:10)
[2023-07-06] MEDS: ALBUTEROL SO4 2.5/IPRATROPIUM 0.5 INH SOL 3 ML VIAL.NEB. NEB SCH (08:05)
[2023-07-06 08:41] LABS: POTASSIUM 3.9 mmol/L (3.5-5.1)
[2023-07-06 08:46] LABS: CALCIUM 8.2 mg/dL (8.5-10.1)
[2023-07-06 08:49] LABS: CREATININE 0.5 mg/dL (0.55-1.3)
[2023-07-06 09:15] LABS: BASO % 0.3 % (0-2.0); EOS % 6.4 % (0-4.5); HEMOGLOBIN 9.4 GM/dL (10.7-15.3); LYMPH % 25.4 % (8-40); MCH 25.2 pg (25.7-33.7); MCHC 31.3 g/dl (32.0-36.0); MEAN CELL VOLUME 80.4 fl (80-96); MEAN PLT VOLUME 9.4 fl (7.5-11.1); MONO % 8.7 % (3.8-10.2); NEUT % 59.2 % (42.8-82.8); PLATELET COUNT 265 10^3/uL (134-434); RBC 3.73 M/mm3 (3.60-5.2); RDW 17.9 % (11.6-15.6); WHITE BLOOD COUNT 6.2 K/mm3 (4.0-10.0)
[2023-07-06] MEDS: DEXTROSE 5%-0.45% SALINE 1,000 ML IV SCH (11:46)
[2023-07-06] MEDS: COLLAGENASE CLOSTRIDIUM HIST. 30 GRAMS TUBE TP SCH (16:15)
[2023-07-06 18:53] VITALS: TEMP 97.6
[2023-07-06] MEDS ORDERED: MIRTAZAPINE 15 MG TABLET (FP) GT SCH (22:00)
[2023-07-06] MEDS ORDERED: NORTRIPTYLINE HCL 25 MG CAPSULE NR SCH (22:00)
[2023-07-06] MEDS ORDERED: OXcarbazepine 300 MG/5 ML UNIT DOSE CUPS GT SCH (22:00)
[2023-07-06] MEDS ORDERED: BACLOFEN 10 MG TABLET (FP) GT SCH (22:00)
[2023-07-06] MEDS ORDERED: PREGABALIN 100 MG CAPSULE NR SCH (22:00)
[2023-07-06 22:56] VITALS: BP 163/78; PULSE 90; RESP 18
[2023-07-07] MEDS ORDERED: amLODIPine BESYLATE 5 MG TABLET (FP) GT SCH (10:00)
[2023-07-07] MEDS ORDERED: SERTRALINE HCL 50 MG TABLET (FP) GT SCH (10:00)
[2023-07-07] MEDS ORDERED: LEVOTHYROXINE NA 88 MCG TABLET (FP) PEG SCH (10:00)
== END 2023-07-06 22:00 | disposition home or self-care (01) ==
LOC: JER 16:38 → JERBED 20:17 → J5S 07-06 01:00
PROVIDERS: ADMIT Internal Medicine; ATTEND Family Medicine
PROC: 3E033NZ Introduction of Analgesics, Hypnotics, Sedatives into Peripheral Vein, Percutaneous Approach (ICD-10-PCS; principal; 2023-07-05)
PROC: 3E0337Z Introduction of Electrolytic and Water Balance Substance into Peripheral Vein, Percutaneous Approach (ICD-10-PCS; 2023-07-05)
PROC: 3E033GC Introduction of Other Therapeutic Substance into Peripheral Vein, Percutaneous Approach (ICD-10-PCS; 2023-07-05)
PROC: 0D20XUZ Change Feeding Device in Upper Intestinal Tract, External Approach (ICD-10-PCS; 2023-07-05)
DX: K94.20 Gastrostomy complication, unspecified (principal); I10 Essential (primary) hypertension; E78.5 Hyperlipidemia, unspecified; G35 Multiple sclerosis; G83.9 Paralytic syndrome, unspecified; R53.2 Functional quadriplegia; G50.0 Trigeminal neuralgia; N31.2 Flaccid neuropathic bladder, not elsewhere classified; E03.9 Hypothyroidism, unspecified; K59.00 Constipation, unspecified
CPT/HCPCS: 36415; 49452; 71045-TC-FY; 80048; 80053; 82962; 85025; 85610; 85730; 86850; 86900; 86901; 93005; 93010; 94002; 94640; 96361; 96374; 96375; 99285-25; E0186; G0378; J0131

== ENCOUNTER 2023-12-10 13:07 | Emergency (ER) | payer OTHER ==
[2023-12-10 13:57] VITALS: TEMP 97.8; BMI 58.3
[2023-12-10 21:39] VITALS: BP 124/79; PULSE 97; RESP 16
== END 2023-12-10 23:00 | disposition home or self-care (01) ==
LOC: JER 13:07
DX: K94.23 Gastrostomy malfunction (principal)
CPT/HCPCS: 49440; 82962; 99283-25

== ENCOUNTER 2024-09-17 18:26 | Inpatient (IN) | payer OTHER ==
[2024-09-17] MEDS ORDERED: ACETAMINOPHEN INJECTION 100 ML ONE (19:05)
[2024-09-17] MEDS ORDERED: MEROPENEM 1 GM VIAL (RESTRICTED TO ID) IVPB ONE (19:05)
[2024-09-17] MEDS: SODIUM CHLORIDE 0.9% 1000 ML INFUS.BAG IV STA (19:45)
[2024-09-17] MEDS: ACETAMINOPHEN 1000 MG/100 ML BAG IVPB ONE (19:45)
[2024-09-17 19:50] LABS: BG HCT 36.0 % (32.4-45.2); VENOUS BASE EXCESS 0.8 mmol/L (-2-2); VENOUS O2 SATURATION 77.1 % (70-80); VENOUS PCO2 48.1 mmHg (38-52); VENOUS PH 7.362 (7.310-7.410)
[2024-09-17 19:51] LABS: ABSOLUTE IMMATURE GRANULOCYTES 0.04 x10^3/uL (0.0-0.031); BASOPHILS # 0.02 x10^3/uL (0.01-0.08); EOSINOPHIL % 2.3 % (0.7-5.8); EOSINOPHILS # 0.34 x10^3/uL (0.04-0.36); MCHC 30.9 g/dl (32.2-35.5); MEAN CELL VOLUME 86.3 fl (79.4-94.8); MEAN PLT VOLUME 10.2 fl (9.4-12.3); MONOCYTE # 0.81 x10^3/uL (0.24-0.86); MONOCYTE % 5.5 % (4.7-12.5); RDW 15.2 % (12.3-16.6)
[2024-09-17 20:04] LABS: INR 1.14 (0.83-1.09); PROTHROMBIN TIME (PATIENT) 12.5 SEC (9.7-13.0)
[2024-09-17 20:05] LABS: ACTIVATED PTT 34.8 SECONDS (25.2-36.5)
[2024-09-17] MEDS ORDERED: IBUPROFEN (CALDOLOR) 800 MG/200 ML PREMIX BAGS IVPB ONE (20:05)
[2024-09-17 20:45] LABS: CO2 30.0 mmol/L (21-32); GLUCOSE,RANDOM 111.0 mg/dL (74-106)
[2024-09-17 20:48] LABS: CREATININE 0.3 mg/dL (0.55-1.3); SGPT/ALT 9.0 U/L (13-61)
[2024-09-17 20:49] LABS: SGOT/AST 11.0 U/L (15-37)
[2024-09-17 20:50] LABS: TOT PROT 7.4 g/dl (6.4-8.2)
[2024-09-17 20:51] LABS: ALK PHOS 106.0 U/L (45-117)
[2024-09-17 21:01] LABS: HIV INTERPRETATION NEGATIVE (NEGATIVE)
[2024-09-17 21:02] LABS: HCV DIAGNOSTIC IN-HOUSE W/RFLX NON-REACTIVE (NONREACTIVE)
[2024-09-17] MEDS: MEROPENEM 1 GM in DEXTROSE 5%-WATER 100 ML IVPB ONE (21:15)
[2024-09-17] MEDS: POTASSIUM CHLORIDE ORAL LIQUID 20 MEQ/15 ML PO ONE (22:27)
[2024-09-17] MEDS ORDERED: POTASSIUM CHLORIDE ORAL LIQUID 20 MEQ/15 ML ONE (22:28)
[2024-09-17] MEDS: POTASSIUM CHLORIDE ORAL LIQUID 20 MEQ/15 ML NGT ONE (22:32)
[2024-09-18] MEDS ORDERED: IBUPROFEN 800 MG/8 ML IJ IVPB ONE (00:24)
[2024-09-18] MEDS: IBUPROFEN 800 MG/8 ML IJ IVPB ONE (00:41)
[2024-09-18 01:48] LABS: URINE APPEARANCE Clear; URINE BILIRUBIN Negative (NEGATIVE); URINE COLOR Yellow; URINE GLUCOSE (UA) Negative (NEGATIVE); URINE KETONE Negative (NEGATIVE); URINE LEUK ESTERASE 1+ (NEGATIVE); URINE NITRITE Positive (NEGATIVE); URINE PROTEIN Negative (NEGATIVE); URINE UROBILINOGEN 0.2 mg/dL (0.2-1.0)
[2024-09-18 02:41] VITALS: BMI 16.4
[2024-09-18] MEDS: PREGABALIN 100 MG CAPSULE NR SCH (06:34)
[2024-09-18] MEDS: BACLOFEN 10 MG TABLET (FP) GT SCH (06:34)
[2024-09-18] MEDS: LEVOTHYROXINE NA 88 MCG TABLET (FP) GT SCH (06:34)
[2024-09-18] MEDS: ALBUTEROL SO4 2.5/IPRATROPIUM 0.5 INH SOL 3 ML VIAL.NEB. NEB SCH (07:50)
[2024-09-18 09:46] LABS: ABSOLUTE IMMATURE GRANULOCYTES 0.02 x10^3/uL (0.0-0.031); BASOPHILS # 0.01 x10^3/uL (0.01-0.08); EOSINOPHIL % 8.3 % (0.7-5.8); EOSINOPHILS # 0.55 x10^3/uL (0.04-0.36); MCHC 30.7 g/dl (32.2-35.5); MEAN CELL VOLUME 85.9 fl (79.4-94.8); MEAN PLT VOLUME 10.5 fl (9.4-12.3); MONOCYTE # 0.34 x10^3/uL (0.24-0.86); MONOCYTE % 5.1 % (4.7-12.5); RDW 15.2 % (12.3-16.6)
[2024-09-18] MEDS: amLODIPine BESYLATE 5 MG TABLET (FP) GT SCH (09:59)
[2024-09-18] MEDS: MEROPENEM-0.9% SODIUM CHLORIDE 500 MG/50 ML BAG IVPB SCH (10:00)
[2024-09-18] MEDS: SERTRALINE HCL 50 MG TABLET (FP) GT SCH (10:08)
[2024-09-18 10:09] LABS: CO2 26.0 mmol/L (21-32); GLUCOSE,RANDOM 81.0 mg/dL (74-106)
[2024-09-18 10:13] LABS: CREATININE 0.2 mg/dL (0.55-1.3)
[2024-09-18] MEDS ORDERED: ALBUTEROL SO4 0.083% IH SOL 2.5 MG/3 ML VIAL.NEB. NEB PRN (11:17)
[2024-09-18] MEDS: OXcarbazepine 300 MG/5 ML UNIT DOSE CUPS GT SCH (12:13)
[2024-09-18] MEDS: methylPREDNISolone NA SUCC 40 MG/1 ML VIAL IVPUSH SCH (12:56)
[2024-09-18] MEDS: MULTIVIT-MINERALS ORAL LIQUID GT SCH (15:31)
[2024-09-18] MEDS: AMINO ACIDS/PROTEIN HYDROLYS 30 ML LIQUID.PKT PO SCH (15:32)
[2024-09-18] MEDS: AMINO ACIDS/PROTEIN HYDROLYS 30 ML LIQUID.PKT GT SCH (17:09)
[2024-09-18] MEDS: MIRTAZAPINE 15 MG TABLET (FP) GT SCH (21:47)
[2024-09-18] MEDS: ASCORBIC ACID 500 MG/5 ML UNIT DOSE CUP GT SCH (21:47)
[2024-09-19 09:10] LABS: ABSOLUTE IMMATURE GRANULOCYTES 0.02 x10^3/uL (0.0-0.031); BASOPHILS # 0.01 x10^3/uL (0.01-0.08); EOSINOPHIL % 2.3 % (0.7-5.8); EOSINOPHILS # 0.18 x10^3/uL (0.04-0.36); MCHC 30.0 g/dl (32.2-35.5); MEAN CELL VOLUME 87.8 fl (79.4-94.8); MEAN PLT VOLUME 11.6 fl (9.4-12.3); MONOCYTE # 0.78 x10^3/uL (0.24-0.86); MONOCYTE % 9.9 % (4.7-12.5); RDW 15.4 % (12.3-16.6)
[2024-09-19 10:08] LABS: CO2 27.0 mmol/L (21-32); GLUCOSE,RANDOM 76.0 mg/dL (74-106)
[2024-09-19 10:09] LABS: SGPT/ALT 8.0 U/L (13-61)
[2024-09-19 10:10] LABS: SGOT/AST 10.0 U/L (15-37)
[2024-09-19 10:11] LABS: CREATININE 0.3 mg/dL (0.55-1.3)
[2024-09-19 10:12] LABS: ALK PHOS 82.0 U/L (45-117); TOT PROT 6.4 g/dl (6.4-8.2)
[2024-09-20 09:24] LABS: ABSOLUTE IMMATURE GRANULOCYTES 0.06 x10^3/uL (0.0-0.031); BASOPHILS # 0.02 x10^3/uL (0.01-0.08); EOSINOPHIL % 1.9 % (0.7-5.8); EOSINOPHILS # 0.24 x10^3/uL (0.04-0.36); MCHC 29.8 g/dl (32.2-35.5); MEAN CELL VOLUME 87.9 fl (79.4-94.8); MEAN PLT VOLUME 10.5 fl (9.4-12.3); MONOCYTE # 1.01 x10^3/uL (0.24-0.86); MONOCYTE % 7.9 % (4.7-12.5); RDW 15.6 % (12.3-16.6)
[2024-09-20 09:58] LABS: CO2 29.0 mmol/L (21-32); GLUCOSE,RANDOM 103.0 mg/dL (74-106)
[2024-09-20 10:01] LABS: SGOT/AST 13.0 U/L (15-37); SGPT/ALT 10.0 U/L (13-61)
[2024-09-20 10:02] LABS: CREATININE 0.3 mg/dL (0.55-1.3)
[2024-09-20 10:03] LABS: TOT PROT 6.7 g/dl (6.4-8.2)
[2024-09-20 10:04] LABS: ALK PHOS 88.0 U/L (45-117)
[2024-09-20] MEDS: MEROPENEM 1 GM in DEXTROSE 5%-WATER 100 ML IVPB SCH (10:05)
[2024-09-20] MEDS ORDERED: MEROPENEM 1 GM VIAL (RESTRICTED TO ID) IVPB ONE (17:00)
[2024-09-20] MEDS: POTASSIUM CHLORIDE ORAL LIQUID 20 MEQ/15 ML PO ONE (17:29)
[2024-09-21] MEDS: ENOXAPARIN NA (PORCINE) 40 MG/0.4 ML DISP.SYRIN SQ SCH (10:00)
[2024-09-21 10:32] LABS: ABSOLUTE IMMATURE GRANULOCYTES 0.06 x10^3/uL (0.0-0.031); BASOPHILS # 0.02 x10^3/uL (0.01-0.08); EOSINOPHIL % 1.4 % (0.7-5.8); EOSINOPHILS # 0.17 x10^3/uL (0.04-0.36); MCHC 29.9 g/dl (32.2-35.5); MEAN CELL VOLUME 88.5 fl (79.4-94.8); MEAN PLT VOLUME 11.7 fl (9.4-12.3); MONOCYTE # 1.18 x10^3/uL (0.24-0.86); MONOCYTE % 9.8 % (4.7-12.5); RDW 15.7 % (12.3-16.6)
[2024-09-21 11:22] LABS: CO2 31.0 mmol/L (21-32); GLUCOSE,RANDOM 99.0 mg/dL (74-106)
[2024-09-21 11:25] LABS: SGOT/AST 15.0 U/L (15-37); SGPT/ALT 12.0 U/L (13-61)
[2024-09-21 11:26] LABS: CREATININE 0.2 mg/dL (0.55-1.3)
[2024-09-21 11:27] LABS: TOT PROT 6.4 g/dl (6.4-8.2)
[2024-09-21 11:28] LABS: ALK PHOS 81.0 U/L (45-117)
[2024-09-21 13:08] LABS: IRON SERUM 14.0 ug/dL (50-175)
[2024-09-22] MEDS: SODIUM CHLORIDE 250 ML IV STA (06:05)
[2024-09-22] MEDS: IRON SUCROSE INJECTION 200 MG in SODIUM CHLORIDE 100 ML IVPB ONE (10:25)
[2024-09-22] MEDS: MIDODRINE HCL 2.5 MG TABLET PO SCH (19:30)
[2024-09-23] MEDS: MEROPENEM 500 MG in DEXTROSE 5%-WATER 100 ML IVPB SCH (08:56)
[2024-09-23] MEDS ORDERED: BISACODYL 5 MG TABLET.DR (FP) PO PRN (11:56)
[2024-09-23] MEDS: POLYETHYLENE GLYCOL (HEALTHYLAX) 3350 17 GM PACKET PO SCH (14:35)
[2024-09-24 09:43] LABS: MCHC 29.9 g/dl (32.2-35.5); MEAN CELL VOLUME 87.8 fl (79.4-94.8); MEAN PLT VOLUME 11.6 fl (9.4-12.3); RDW 15.7 % (12.3-16.6)
[2024-09-24 10:18] LABS: CO2 33.0 mmol/L (21-32); GLUCOSE,RANDOM 102.0 mg/dL (74-106)
[2024-09-24 10:19] LABS: SGOT/AST 23.0 U/L (15-37); SGPT/ALT 25.0 U/L (13-61)
[2024-09-24 10:21] LABS: CREATININE 0.2 mg/dL (0.55-1.3); TOT PROT 6.8 g/dl (6.4-8.2)
[2024-09-24 10:22] LABS: ALK PHOS 84.0 U/L (45-117)
[2024-09-24] MEDS: SODIUM CHLORIDE 250 ML IV STA (13:18)
[2024-09-24] MEDS ORDERED: MEROPENEM 1 GM VIAL (RESTRICTED TO ID) IVPB ONE (18:44)
[2024-09-25] MEDS ORDERED: MEROPENEM 1 GM VIAL (RESTRICTED TO ID) IVPB ONE (09:43)
[2024-09-26] MEDS: SODIUM CHLORIDE 1,000 ML IV STA (06:19)
[2024-09-26] MEDS: MIDODRINE HCL 5 MG TABLET PO ONE (06:24)
[2024-09-26] MEDS ORDERED: BISACODYL 5 MG TABLET.DR (FP) PO PRN (08:34)
[2024-09-26] MEDS: SODIUM CHLORIDE 1,000 ML IV SCH ×3 (09:05→16:50)
[2024-09-26] MEDS ORDERED: ALBUTEROL SO4 0.083% IH SOL 2.5 MG/3 ML VIAL.NEB. NEB PRN (09:07)
[2024-09-26 10:00] LABS: MCHC 30.0 g/dl (32.2-35.5); MEAN CELL VOLUME 89.2 fl (79.4-94.8); MEAN PLT VOLUME 12.2 fl (9.4-12.3); RDW 15.9 % (12.3-16.6)
[2024-09-26] MEDS: ACETAMINOPHEN 1000 MG/100 ML BAG IVPB ONE (10:17)
[2024-09-26] MEDS: MUPIROCIN 2% TOPICAL OINTMENT FOR DECOLONIZATION NS SCH (10:18)
[2024-09-26] MEDS: ASCORBIC ACID 500 MG/5 ML UNIT DOSE CUP GT SCH (10:18)
[2024-09-26] MEDS: ENOXAPARIN NA (PORCINE) 40 MG/0.4 ML DISP.SYRIN SQ SCH (10:18)
[2024-09-26] MEDS: SERTRALINE HCL 50 MG TABLET (FP) GT SCH (10:19)
[2024-09-26] MEDS: POLYETHYLENE GLYCOL (HEALTHYLAX) 3350 17 GM PACKET PO SCH (10:19)
[2024-09-26] MEDS: MEROPENEM 1 GM in DEXTROSE 5%-WATER 100 ML IVPB SCH (10:20)
[2024-09-26] MEDS: methylPREDNISolone NA SUCC 40 MG/1 ML VIAL IVPUSH SCH (10:22)
[2024-09-26 10:23] LABS: CO2 32.0 mmol/L (21-32)
[2024-09-26 10:24] LABS: GLUCOSE,RANDOM 80.0 mg/dL (74-106)
[2024-09-26] MEDS: MULTIVIT-MINERALS ORAL LIQUID GT SCH (10:24)
[2024-09-26] MEDS: OXcarbazepine 300 MG/5 ML UNIT DOSE CUPS GT SCH (10:25)
[2024-09-26 10:26] LABS: CREATININE 0.2 mg/dL (0.55-1.3); SGOT/AST 11.0 U/L (15-37); SGPT/ALT 12.0 U/L (13-61)
[2024-09-26 10:28] LABS: ALK PHOS 70.0 U/L (45-117); TOT PROT 5.9 g/dl (6.4-8.2)
[2024-09-26] MEDS: NOREPINEPHRINE BITARTRATE 4,000 MCG in DEXTROSE 5%-WATER - 496 ML IV SCH (10:28)
[2024-09-26 10:38] LABS: ERYTHROCYTE SEDIMENTATION RATE 85 mm/hr (0-30)
[2024-09-26] MEDS: ALBUTEROL SO4 2.5/IPRATROPIUM 0.5 INH SOL 3 ML VIAL.NEB. NEB SCH (11:45)
[2024-09-26] MEDS: AMINO ACIDS/PROTEIN HYDROLYS 30 ML LIQUID.PKT GT SCH (12:44)
[2024-09-26] MEDS: PREGABALIN 100 MG CAPSULE NR SCH (13:40)
[2024-09-26] MEDS: BACLOFEN 10 MG TABLET (FP) GT SCH (13:40)
[2024-09-26] MEDS: MIDODRINE HCL 2.5 MG TABLET PO SCH (13:42)
[2024-09-26] MEDS ORDERED: MIDODRINE HCL 5 MG TABLET PO SCH (18:00)
[2024-09-26] MEDS ORDERED: MIDODRINE HCL 5 MG TABLET GT SCH (18:00)
[2024-09-26] MEDS: CHLORHEXIDINE GLUCONATE 4% CLEANSER FOR DECOLONIZATION TP SCH (21:37)
[2024-09-26] MEDS: MIRTAZAPINE 15 MG TABLET (FP) GT SCH (21:37)
[2024-09-27] MEDS: LEVOTHYROXINE NA 88 MCG TABLET (FP) GT SCH (06:19)
[2024-09-27 07:52] LABS: ABSOLUTE IMMATURE GRANULOCYTES 0.04 x10^3/uL (0.0-0.031); BASOPHILS # 0.02 x10^3/uL (0.01-0.08); EOSINOPHIL % 3.0 % (0.7-5.8); EOSINOPHILS # 0.25 x10^3/uL (0.04-0.36); MCHC 29.7 g/dl (32.2-35.5); MEAN CELL VOLUME 88.0 fl (79.4-94.8); MEAN PLT VOLUME 11.9 fl (9.4-12.3); MONOCYTE # 0.68 x10^3/uL (0.24-0.86); MONOCYTE % 8.2 % (4.7-12.5); RDW 15.7 % (12.3-16.6)
[2024-09-27 08:18] LABS: CO2 29 mmol/L (21-32); GLUCOSE,RANDOM 80 mg/dL (74-106)
[2024-09-27 08:22] LABS: CREATININE < 0.2 mg/dL (0.55-1.3)
[2024-09-27] MEDS: MIDODRINE HCL 5 MG TABLET PO ONE (10:00)
[2024-09-27] MEDS: MIDODRINE HCL 2.5 MG TABLET PO SCH (10:36)
[2024-09-27] MEDS: PANTOPRAZOLE SODIUM 40 MG VIAL IVPUSH SCH (14:04)
[2024-09-27] MEDS: POTASSIUM PHOSPHATE 20 MM in SODIUM CHLORIDE 250 ML IVPB ONE (15:55)
[2024-09-28] MEDS: NOREPINEPHRINE BITARTRATE 4,000 MCG in DEXTROSE 5%-WATER - 496 ML IV SCH (01:00)
[2024-09-28 07:25] LABS: ABSOLUTE IMMATURE GRANULOCYTES 0.07 x10^3/uL (0.0-0.031); BASOPHILS # 0.02 x10^3/uL (0.01-0.08); EOSINOPHIL % 3.1 % (0.7-5.8); EOSINOPHILS # 0.25 x10^3/uL (0.04-0.36); MCHC 30.5 g/dl (32.2-35.5); MEAN CELL VOLUME 87.5 fl (79.4-94.8); MEAN PLT VOLUME 11.4 fl (9.4-12.3); MONOCYTE # 0.73 x10^3/uL (0.24-0.86); MONOCYTE % 9.1 % (4.7-12.5); RDW 15.7 % (12.3-16.6)
[2024-09-28 08:07] LABS: ALK PHOS 77 U/L (45-117)
[2024-09-28 08:15] LABS: CO2 28 mmol/L (21-32); GLUCOSE,RANDOM 84 mg/dL (74-106)
[2024-09-28 08:18] LABS: CREATININE < 0.2 mg/dL (0.55-1.3); SGOT/AST 10 U/L (15-37); SGPT/ALT 13 U/L (13-61)
[2024-09-28 08:20] LABS: TOT PROT 6.1 g/dl (6.4-8.2)
[2024-09-28] MEDS: MIDAZOLAM HCL 2 MG/2 ML SINGLE DOSE VIAL IVPUSH ONE (10:52)
[2024-09-28] MEDS ORDERED: MIDODRINE HCL 5 MG TABLET PO SCH (14:48)
[2024-09-28] MEDS: MIDODRINE HCL 5 MG TABLET PO SCH (14:54)
[2024-09-29 07:20] LABS: ABSOLUTE IMMATURE GRANULOCYTES 0.11 x10^3/uL (0.0-0.031); BASOPHILS # 0.02 x10^3/uL (0.01-0.08); EOSINOPHIL % 1.9 % (0.7-5.8); EOSINOPHILS # 0.24 x10^3/uL (0.04-0.36); MCHC 29.9 g/dl (32.2-35.5); MEAN CELL VOLUME 87.6 fl (79.4-94.8); MEAN PLT VOLUME 11.7 fl (9.4-12.3); MONOCYTE # 1.15 x10^3/uL (0.24-0.86); MONOCYTE % 9.3 % (4.7-12.5); RDW 15.8 % (12.3-16.6)
[2024-09-29 07:42] LABS: CO2 30.0 mmol/L (21-32); GLUCOSE,RANDOM 96.0 mg/dL (74-106)
[2024-09-29 07:45] LABS: CREATININE 0.2 mg/dL (0.55-1.3); SGOT/AST 8.0 U/L (15-37); SGPT/ALT 10.0 U/L (13-61)
[2024-09-29 07:47] LABS: ALK PHOS 76.0 U/L (45-117); TOT PROT 6.2 g/dl (6.4-8.2)
[2024-09-29] MEDS: IRON SUCROSE INJECTION 200 MG in SODIUM CHLORIDE 100 ML IVPB ONE (07:51)
[2024-09-29] MEDS: SODIUM CHLORIDE 1,000 ML IV STA ×2 (09:07→11:03)
[2024-09-29] MEDS: HYDROCORTISONE SOD SUCCINATE 100 MG/2 ML VIAL IVPB SCH (09:17)
[2024-09-29] MEDS: LACTATED RINGERS SOLUTION 1,000 ML/1,000 ML INFUS.BAG IV SCH (11:03)
[2024-09-29] MEDS: POTASSIUM PHOSPHATE 30 MM in SODIUM CHLORIDE 250 ML IVPB ONE (11:03)
[2024-09-30 08:21] LABS: ABSOLUTE IMMATURE GRANULOCYTES 0.06 x10^3/uL (0.0-0.031); BASOPHILS # 0.01 x10^3/uL (0.01-0.08); EOSINOPHIL % 0.0 % (0.7-5.8); EOSINOPHILS # 0.00 x10^3/uL (0.04-0.36); MCHC 30.4 g/dl (32.2-35.5); MEAN CELL VOLUME 86.4 fl (79.4-94.8); MEAN PLT VOLUME 11.2 fl (9.4-12.3); MONOCYTE # 0.48 x10^3/uL (0.24-0.86); MONOCYTE % 5.9 % (4.7-12.5); RDW 15.8 % (12.3-16.6)
[2024-09-30] MEDS: AMINO ACIDS/PROTEIN HYDROLYS 30 ML LIQUID.PKT GT SCH (08:45)
[2024-09-30 08:49] LABS: CREATININE 0.2 mg/dL (0.55-1.3)
[2024-09-30 08:51] LABS: GLUCOSE,RANDOM 144 mg/dL (74-106); TOT PROT 5.7 g/dl (6.4-8.2)
[2024-09-30 08:52] LABS: ALK PHOS 66 U/L (45-117); CO2 30 mmol/L (21-32)
[2024-09-30 08:53] LABS: SGOT/AST 6 U/L (15-37); SGPT/ALT 6 U/L (13-61)
[2024-09-30] MEDS: KCL 10 MEQ IVPB 10 MEQ/100 ML INFUS.BAG IVPB SCH (11:04)
[2024-09-30] MEDS: POTASSIUM CHLORIDE ORAL LIQUID 20 MEQ/15 ML PO ONE (11:04)
[2024-09-30] MEDS: POTASSIUM PHOSPHATE 30 MM in DEXTROSE 5%-WATER - 250 ML IVPB ONE (16:02)
[2024-10-01] MEDS: MIDODRINE HCL 5 MG TABLET PO SCH (01:00)
[2024-10-01 07:23] LABS: MCHC 30.8 g/dl (32.2-35.5); MEAN CELL VOLUME 87.1 fl (79.4-94.8); MEAN PLT VOLUME 12.1 fl (9.4-12.3); RDW 16.0 % (12.3-16.6)
[2024-10-01 08:15] LABS: CO2 31.0 mmol/L (21-32); GLUCOSE,RANDOM 135.0 mg/dL (74-106)
[2024-10-01 08:18] LABS: CREATININE 0.2 mg/dL (0.55-1.3)
[2024-10-01] MEDS: KCL 10 MEQ IVPB 10 MEQ/100 ML INFUS.BAG IVPB SCH (09:36)
[2024-10-01] MEDS: HYDROCORTISONE SOD SUCCINATE 100 MG/2 ML VIAL IVPB SCH (12:26)
[2024-10-01] MEDS: IRON SUCROSE INJECTION 200 MG in SODIUM CHLORIDE 100 ML IVPB ONE (13:59)
[2024-10-01] MEDS ORDERED: ALBUTEROL SO4 0.083% IH SOL 2.5 MG/3 ML VIAL.NEB. NEB PRN (21:44)
[2024-10-01] MEDS: OXcarbazepine 300 MG/5 ML UNIT DOSE CUPS GT SCH (23:22)
[2024-10-01] MEDS: PREGABALIN 100 MG CAPSULE NR SCH (23:23)
[2024-10-01] MEDS: BACLOFEN 10 MG TABLET (FP) GT SCH (23:24)
[2024-10-01] MEDS: MIRTAZAPINE 15 MG TABLET (FP) GT SCH (23:24)
[2024-10-01] MEDS: ASCORBIC ACID 500 MG/5 ML UNIT DOSE CUP GT SCH (23:25)
[2024-10-02] MEDS: MEROPENEM 1 GM in DEXTROSE 5%-WATER 100 ML IVPB SCH (01:14)
[2024-10-02] MEDS: LEVOTHYROXINE NA 88 MCG TABLET (FP) GT SCH (06:14)
[2024-10-02] MEDS: ALBUTEROL SO4 2.5/IPRATROPIUM 0.5 INH SOL 3 ML VIAL.NEB. NEB SCH (07:35)
[2024-10-02] MEDS ORDERED: HYDROCORTISONE SOD SUCCINATE 100 MG/2 ML VIAL IVPB SCH (10:00)
[2024-10-02 10:44] LABS: ABSOLUTE IMMATURE GRANULOCYTES 0.06 x10^3/uL (0.0-0.031); BASOPHILS # 0.02 x10^3/uL (0.01-0.08); EOSINOPHIL % 1.1 % (0.7-5.8); EOSINOPHILS # 0.09 x10^3/uL (0.04-0.36); MCHC 30.0 g/dl (32.2-35.5); MEAN CELL VOLUME 86.8 fl (79.4-94.8); MEAN PLT VOLUME 11.7 fl (9.4-12.3); MONOCYTE # 0.96 x10^3/uL (0.24-0.86); MONOCYTE % 11.2 % (4.7-12.5); RDW 15.9 % (12.3-16.6)
[2024-10-02] MEDS: SERTRALINE HCL 50 MG TABLET (FP) GT SCH (11:25)
[2024-10-02] MEDS: MIDODRINE HCL 5 MG TABLET PO SCH (11:25)
[2024-10-02] MEDS: ENOXAPARIN NA (PORCINE) 40 MG/0.4 ML DISP.SYRIN SQ SCH (11:25)
[2024-10-02] MEDS: MULTIVIT-MINERALS ORAL LIQUID GT SCH (11:26)
[2024-10-02] MEDS: POLYETHYLENE GLYCOL (HEALTHYLAX) 3350 17 GM PACKET GT SCH (11:26)
[2024-10-02] MEDS: AMINO ACIDS/PROTEIN HYDROLYS 30 ML LIQUID.PKT GT SCH (11:26)
[2024-10-02] MEDS: PANTOPRAZOLE SODIUM 40 MG VIAL IVPUSH SCH (11:29)
[2024-10-02 12:37] LABS: CREATININE 0.2 mg/dL (0.55-1.3); SGOT/AST 11.0 U/L (15-37); SGPT/ALT 12.0 U/L (13-61)
[2024-10-02 12:38] LABS: TOT PROT 5.9 g/dl (6.4-8.2)
[2024-10-02 12:40] LABS: ALK PHOS 84.0 U/L (45-117)
[2024-10-02] MEDS: HYDROCORTISONE SOD SUCCINATE 100 MG/2 ML VIAL IVPB SCH (12:45)
[2024-10-02 12:46] LABS: CO2 33.0 mmol/L (21-32)
[2024-10-02 12:47] LABS: GLUCOSE,RANDOM 116.0 mg/dL (74-106)
[2024-10-02] MEDS: BANATROL PLUS POWDER PACKET GT SCH (22:58)
[2024-10-02] MEDS: POTASSIUM CHLORIDE ORAL LIQUID 20 MEQ/15 ML GT ONE (22:58)
[2024-10-02] MEDS: NAPH,MB-DB/K PH,MBDB POWDER PACKET PO ONE (23:06)
[2024-10-02] MEDS: POTASSIUM CHLORIDE ORAL LIQUID 20 MEQ/15 ML PO SCH (23:06)
[2024-10-03 08:53] LABS: MCHC 30.6 g/dl (32.2-35.5); MEAN CELL VOLUME 86.5 fl (79.4-94.8); MEAN PLT VOLUME 11.6 fl (9.4-12.3); RDW 15.9 % (12.3-16.6)
[2024-10-03] MEDS: NAPH,MB-DB/K PH,MBDB POWDER PACKET PO SCH (09:41)
[2024-10-03 09:47] LABS: CO2 34.0 mmol/L (21-32); GLUCOSE,RANDOM 88.0 mg/dL (74-106)
[2024-10-03 09:50] LABS: CREATININE 0.2 mg/dL (0.55-1.3)
[2024-10-03] MEDS: HYDROCORTISONE 20 MG, HYDROCORTISONE 5 MG PO SCH (09:57)
[2024-10-03] MEDS ORDERED: HYDROCORTISONE 5 MG TABLET PO SCH (10:00)
[2024-10-04 10:36] VITALS: BP 122/55; PULSE 87; RESP 16; TEMP 97.7
[2024-10-04] MEDS: PANTOPRAZOLE 40 MG TABLET PO SCH (11:20)
[2024-10-04] MEDS: HYDROCORTISONE 20 MG, HYDROCORTISONE 5 MG PO SCH (11:20)
== END 2024-10-04 14:15 | disposition home or self-care (01) | DRG 698 ==
LOC: JER 18:26 → JERBED 20:19 → J5S 09-18 01:36 → JICU 09-26 08:36 → J5S 10-01 21:05
PROVIDERS: ADMIT Family Medicine; ATTEND Family Medicine
PROC: 5A1955Z Respiratory Ventilation, Greater than 96 Consecutive Hours (ICD-10-PCS; principal; 2024-09-17)
PROC: 0B21XFZ Change Tracheostomy Device in Trachea, External Approach (ICD-10-PCS; 2024-09-28)
DX: T83.511A Infection and inflammatory reaction due to indwelling urethral catheter, initial encounter (principal); A41.9 Sepsis, unspecified organism; G92.8 Other toxic encephalopathy; R53.2 Functional quadriplegia; R65.21 Severe sepsis with septic shock; J18.9 Pneumonia, unspecified organism; J96.10 Chronic respiratory failure, unspecified whether with hypoxia or hypercapnia; J98.11 Atelectasis; R64 Cachexia; Z68.1 Body mass index [BMI] 19.9 or less, adult; E03.9 Hypothyroidism, unspecified; I10 Essential (primary) hypertension; E78.5 Hyperlipidemia, unspecified; N31.9 Neuromuscular dysfunction of bladder, unspecified; K59.09 Other constipation; D64.9 Anemia, unspecified; G35 Multiple sclerosis; G50.0 Trigeminal neuralgia; Z93.1 Gastrostomy status; F32.A Depression, unspecified; R13.12 Dysphagia, oropharyngeal phase; E87.6 Hypokalemia; L89.310 Pressure ulcer of right buttock, unstageable; L89.150 Pressure ulcer of sacral region, unstageable; L89.100 Pressure ulcer of unspecified part of back, unstageable; Y84.6 Urinary catheterization as the cause of abnormal reaction of the patient, or of later complication, without mention of misadventure at the time of the procedure
CPT/HCPCS: 36415; 71045-TC-FY; 80048; 80053; 81003; 82272; 82533; 82728; 82803; 82962; 83036; 83540; 83550; 83605; 83735; 84100; 84443; 84466; 84484; 85025; 85027; 85610; 85651; 85730; 86140; 86803; 86850; 86900; 86901; 87040; 87070; 87077; 87086; 87205; 87389; 87481; 87637-QW; 87899; 93005; 93010; 93306-TC; 94002; 94640; 99285-25; E0186; J0475; J1756